=== PATIENT | female | born 1950 | race African-American/Black ===

== ENCOUNTER 2020-06-24 03:06 | Inpatient (IN) | payer OTHER ==
--- OUTSIDE RECORDS SUMMARY | 2020-06-24 03:09 | XMS REPORT | Clinical Summary ---
:1950 Author Organization [facility] Dist[facility] ict Address [facility] [place] [address] Care Team Providers Name Role Phone Unavailable Primary Care Provider Unavailable Allergies Active Allergy Reactions Severity Noted Date Comments Penicillins 01/02/2013 Medications Medication Sig Dispensed Refills Start Date End Date Status metoprolol tartrate Take 1 tablet by 14 tablet 0 03/08/2018 Active (LOPRESSOR) 25 mg mouth 2 times tabletIndications: daily. Other chest pain naproxen (NAPROSYN) 375 Take 1 tablet by 14 tablet 0 8 Active mg tabletIndications: mouth 2 times Chronic bilateral low daily as needed back pain, with (as needed for sciatica presence pain). unspecified Active Problems Problem Noted Date Low back pain 03/08/2018 Other chest pain 01/16/2018 Social History Tobacco Use Types Packs/Day Years Used Date Never Assessed Sex Assigned at Date Recorded Not on file Job Start Date Occupation Industry Not on file Not on file Not on file Travel History Travel Start Travel End No recent travel history available. Last Filed Vital Signs Not on file Plan of Treatment Health Maintenance Due Date Last Done Comments Breast Cancer Scrn (Yearly) 1990 Colorectal Cancer Scrn Annual (FIT/FOBT) Age 50 to 75 2000 IMM Pneumococcal Age 65 and Up 2015 IMM Influenza Seasonal May to October (>/= 19 yrs) 05/29/2020 Results Not on fileafter 06/24/2019 Insurance Payer Benefit Plan / Subscriber ID Effective Dates Phone Addre ss Type Group [employer] MEDICA[place] xxxxxxxxx 2018-Presen [id number] [place] [address] [place] DUAL xxxxxxxxxxxx 2018-Prese [phone] [facility] O MEDICARE OPTION MMP nt [id number] OPTIONS [address] [address] [place] [address]
--- OUTSIDE RECORDS SUMMARY | 2020-06-24 03:23 | XMS REPORT | Continuity of Care Document ---
:1950 Author Organization [facility] Information [place] Care Team Providers Name Role Phone [facility] Information Exchange Unavailable Un available Problems Problem Status Onset Classification Date Comments Sourc e Date Reported UPPER ABD PAIN Active 01/20/20 [facility] [place] Chest pain, 01/17/20 01/19/2017 Nakia haskins unspecified [address] [place] [address], [place] CHEST PAIN Active 01/17/20 [place] [address] Maciej,[facility] Urinary tract 11/29/19 12/01/2016 [place] infection, site 17 not specified Dorsalgia, 11/29/19 12/01/2016 Diane and unspecified 17 PAIN Active 11/29/19 [place] [address] Maciej Bitten or stung by 11/07/19 11/09/2016 [facility] nonvenomous insect 17 and other nonvenomous arthropods, initial encounter FACIAL SWELLING Active 11/07/19 Eleazar rial [place] SYNCOPE Active 10/10/[address] SICK Active 10/10/[address] Discharge 04/14/20 04/17/2016 [facility] Diagnosis: 16 Medical Syncope, near Center CHEST PAIN, Active 03/11/20 [facility] HYPOTENSION 16 [place] SOB Active 03/11/20 [place] [address] [facility] 03/05/20 03/08/2016 [place] Diagnosis: 16 Trichomonas vaginitis Discharge 03/05/20 03/08/2016 [place] Diagnosis: Lumbago 16 Discharge 02/29/20 03/03/2016 [place] Diagnosis: 16 Bronchitis BACK PAIN Active 09/14/19 [facility] 16 [place],[facility] COPD, CHEST PAIN Active 09/03/19 [facility] [place] HEADACHE Active 07/15/20 [facility] [place] SOB/ WEAKNESS Active 07/04/[address] LOWER BACK AND LEG Active 07/04/20 [place] PAIN [address] [place] [address] SHORTNESS OF Active 06/03/20 BREATH 15 [place] Discharge 05/18/20 05/21/2015 [facility] Diagnosis: 15 Medical Abdominal pain, Cent er acute, epigastric NAUSEA Active 05/18/20 [facility] 15 Medical Center Discharge 05/09/20 05/12/2015 [facility] Diagnosis: Chest 15 Med ical pain Center,[facility] Discharge 05/02/20 05/05/2015 [facility] Diagnosis: Vertigo 15 M edical Center Discharge 05/02/20 05/05/2015 [facility] Diagnosis: Syncope 15 M edical and collapse Center FALL Active 05/02/20 [place] [address] Medical Center Discharge 04/11/20 04/14/2015 Diagnosis: Knee 15 [place] pain, right Discharge 04/11/20 04/14/2015 Diagnosis: Lumbar [address] [facility] Discharge 04/11/20 04/14/2015 Diagnosis: 15 [place] Anterolisthesis Discharge 04/11/20 04/14/2015 Diagnosis: 15 [facility] Accidental fall Discharge 03/30/20 04/02/2015 Diagnosis: Chronic 15 [place] pain in right shoulder NECK AND SHOULDER Active 03/30/20 PAIN 15 [facility] SOB/CHEST PAIN Active 03/21/[address] HYPOTENSION, CHEST Active 03/21/20 H PAIN 15 [facility] Discharge 03/11/20 03/14/2015 Diagnosis: Chest 15 [place] wall muscle strain LOWER BACK PAIN Active 03/11/20 15 [facility] Discharge 03/05/20 03/08/2015 [facility] Diagnosis: Dyspnea 15 M edical Center UPPER BACK PAIN Active 02/25/20 15 [facility] ACUTE CHEST PAIN Active 02/25/20 15 [facility] UNSTABLE ANGINA; Active 02/17/20 HYPOTENSION [place] CHEST/LEG PAIN Active 12/23/[address] OTHER Active 12/17/19 [place] [address] Medical Center ACS Active 12/17/19 [place] [address] Medical Center Asthma (disorder) Active Problem 01/22/2017 [facility], [facility] [place], [facility] [facility] Cardiac chest pain Active Problem 01/22/2017 [facility] (finding) [facility], [facility] [place], [facility] 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 [place] (disorder) Medical Center,[facility],M H Mar[place]ie, M Tabby Kraig t Myocardial Active Problem 01/22/2017 [facility] infarction Medical (disorder) Center, [place],M H [place]ie, M Tabby Kraig t Smoking cessation Active Problem 01/22/2017 [facility] advice Medical (regime/therapy) Jose ter,[facility],M H [place], M Tabby Edmondsya t Stented coronary Resolved Problem 01/22/2017 [facility] artery (finding) Med ical Center,[facility],M H [place] Substance abuse Active Problem 01/22/2017 [facility] (disorder) [facility] Tissue perfusion Active Problem 01/22/2017 [facility] measure [facility] (observable Center,M H entity) [place],M H [place]ie, M Tabby Kraig jb Heart disease Active Problem 12/28/2013 [place] ([place]order[place] [facility] CHEST PAIN NOS [place] [facility] INTERMED CORONARY Active [facility] ANGINA DECUBITUS Active [facility] HYPOTENSION NOS Active [facility] SYNCOPE AND Active [facility] COLLAPSE [facility] Medications Medication Details Route Status Patient Ordering Order Source Instructions Provider Date Famotidine 20 mg, Route: Inactive 01/19[facility] IVP, ONCE, 2016 [facility] Dosing Weight 45.455, kg, Priority: STAT, Start date: 01/19/17 13:00:00 CDT, Stop date: 01/19/17 13:00:00 CDT GI cocktail 30 mL, Route: Inactive [facility] PO, Dosing 2016 [facility] Weight 45.455, kg, ONCE, STAT, Start date: 01/19/17 13:00:00 CDT, Stop date: 01/19/17 13:00:00 CDT Ondansetron 4 mg, Route: Inactive 01/19[facility] IVP, ONCE, 2016 [facility] Dosing Weight 45.455, kg, Priority: STAT, Start date: 01/19/17 13:00:00 CDT, Stop date: 01/19/17 13:00:00 CDT Saline Flush 0.9% Notes: (Same Inactive 01/19[facility] as: BD 2016 [facility] Posiflush) Sodium Chloride 1,000 mL, Inactive 0.154 MEQ/ML 2,000 ml/hr, 2016 [facility] ast Injectable Infuse Over: Solution 30 minutes, Route: IV, ONCE, Priority: STAT, Dosing Weight 45.455 kg, Start date: 01/19/17 13:00:00 CDT, Duration: 1 doses or times, Stop date: 01/19/17 13:00:00 CDT clopidogrel Notes: (Same [place] Longer [place] As: Plavix) Active 2017 [facility] atorvastatin Notes: Same as Inactive [facility] Lipitor 2017 [facility] aspirin 81 mg 81 mg = 1 tab, Active [place] tablet, enteric PO, Daily, # 2017 Med ical coated 90 tab, 3 Center Refill(s), other metoprolol Notes: (Same [place] tartrate as: Lopressor) 2017 Medical 12.5 mg=1/2 X Center 25 mg TAB Meclizine Notes: (Same Inactive [facility] as: Antivert) 2017 [facility] nitrofurantoin 100 mg, PO, Inactive [place] BID, # 14 cap, 2017 Medical 0 Refill(s) Center meclizine 25 mg 25 mg = 1 tab, Active [facility] oral tablet PO, TID, PRN 2017 Medical for dizziness, Center # 60 tab, 0 Refill(s) Morphine Notes: (Same Inactive [facility] as:MORPhine 2017 Medical Sulfate) Center Ondansetron Notes: (Same Inactive [place] as as: Zofran) 2017 Medical MEDICATION Center WASTE Product Size: 4 mg Product Wasted: _0__ mg Aspirin Notes: Take Inactive [facility] with food. 2017 [facility] Saline Flush 0.9% Notes: Same Inactive [facility] as: BD 2017 Medical Posiflush Center Sterile 200 ACTUAT 2 puff, Active Albuterol 0.09 INHALATION, 2017 Diane and MG/ACTUAT Dry Q4H, PRN as Powder Inhaler needed for shortness of breath or wheezing, # 1 box, 0 Refill(s) tramadol 50 mg = 1 tab, Active hydrochloride 50 PO, Q6H, PRN 2017 [place] MG Oral Tablet Pain, X 3 day, # 12 tab, 0 Refill(s) Nitrofurantoin 100 100 mg = 1 Active MG Oral Capsule cap, PO, BID, 2017 [place] [Macrobid] X 7 day, # 14 cap, 0 Refill(s) Tramadol Notes: Not to Inactive exceed 2017 [place] 400mg/day. (Same As: Ultram) Albuterol 0.833 Notes: (Same Inactive MG/ML / as: Duoneb) 2017 [place] Ipratropium Jamieson 0.167 MG/ML Inhalant Solution [DuoNeb] Saline Flush 0.9% Notes: Inactive preservative 2017 [place] free. Mupirocin 0.02 1 appl, TOP, Active MG/MG Topical TID, PRN as 2017 [place] Ointment needed, Apply [Bactroban] to affected area(s), X 14 day, # 60 gm, 0 Refill(s) Saline Flush 0.9% Notes: (Same Inactive as: BD 2017 [place] Posiflush) atorvastatin Notes: Same as Inactive [facility] Lipitor [address] [place] [address] Center remove patch Notes: Remove Inactive [place] patch 12 hours 2017 Medical after Center application each day. metoprolol Notes: (Same [place] tartrate as: Lopressor) 2017 Medical 12.5 mg=1/2 X Center 50 mg TAB heparin sodium, Notes: porcine Inactive [place] porcine 2500 heparin 2017 [facility] UNT/ML Injectable Center Solution Protonix Notes: Tablet Inactive [place] should not be 2017 [facility] chewed or Center crushed. (Same as: Protonix) Symbicort 160/4.5 Notes: (Same Inactive [place] inhalation aerosol as: Symbicort) 2017 Medical with adapter WASTE: Center Aerosol - Return to Pharmacy Aspirin 325 MG Notes: Take Inactive [place] Oral Tablet with food. 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, Duration: 30 day, Stop date: 11/09/16 17:00:00 CDT potassium chloride Notes: (Same Inactive [facility] as: K-Dur 20) 2017 Medical "Do Not Crush" Center With food and full glass of water Nitroglycerin 0.4 Notes: (Same No Longer [facility] MG Sublingual as:Nitroquick, Active 2017 Med ical Tablet Nitrostat) "Do Center Not Crush" Sublingual tablet Lidocaine Notes: (Same [place] Longer [place] Hydrochloride 0.05 as: Lidoderm) Active 2017 Medical MG/MG Transdermal "Remove old Ce nter Patch [Lidoderm] patch before application of new patch" Acetaminophen Notes: Do not No Longer [place] exceed 4 Active 2017 Medical gm/day. (Same Center as: Tylenol) Docusate Notes: (Same No Longer [facility] as: Colace) Active 2017 Medical (Do Not Crush) Center Morphine Notes: (Same No Longer [facility] as:MORPhine Active 2016 Medical Sulfate) Center Acetaminophen 325 Notes: (Same No Longer [facility] MG / Hydrocodone as: [place] Active 2016 Medic al Bitartrate 5 MG 325/5) Do not C enter Oral Tablet exceed 4gm/day of acetaminophen. Ondansetron Notes: (Same [place] Longer [place] as: Zofran) Active 2017 Medical MEDICATION Center WASTE Product Size: 4 mg Product Wasted: 0 mg Dilaudid Notes: Same Inactive [facility] as: Dilaudid 2017 Medical [place] potassium chloride Notes: (Same Inactive [facility] as: K-Dur 20) 2017 Medical "Do Not Crush" Center With food and full glass of water Aspirin Notes: Take Inactive [facility] with food. 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 atorvastatin Notes: (Same Inactive as: Lipitor) 2015 [place] 200 ACTUAT Notes: Same Inactive Albuterol 0.09 as: Ventolin 2015 [place] MG/ACTUAT Metered HFA WASTE: Dose Inhaler Aerosol - [ProAir HFA] Return to Pharmacy Protonix Notes: Tablet Inactive should not be 2015 [place] chewed or crushed. (Same as: Protonix) Symbicort 160/4.5 Notes: (Same Inactive inhalation aerosol as: Symbicort) 2015 [place] with adapter WASTE: Aerosol - Return to Pharmacy Aspirin 81 MG Notes: Take Inactive Chewable Tablet with food. 2016 [place] and Omeprazole 20 mg, Route: Inactive PO, Drug form: 2015 [place] ECTAB, BID, Dosing Weight 50, kg, Start date: 03/12/16 9:00:00 CDT, Duration: 30 day, Stop date: 04/10/16 17:00:00 CDT metoprolol Notes: (Same Inactive tartrate as: Lopressor) 2015 [place] clopidogrel Notes: (Same Inactive As: Plavix) 2015 [place] Aspirin 325 MG Notes: Take Inactive Oral Tablet with food. 2015 [place] tramadol Notes: Not to Inactive hydrochloride 50 exceed 2015 [place] MG Oral Tablet 400mg/day. (Same As: Ultram) Naprosyn Notes: (Same Inactive as: Naprosyn) 2015 [place] Take with food. Lidocaine Notes: (Same Inactive Hydrochloride 0.05 as: Lidoderm) 2015 [place] MG/MG Transdermal Patch [Lidoderm] Aspirin Notes: Take Inactive with food. 2015 [place] Nitroglycerin Notes: (Same No Longer as:Nitroquick, Active 2015 [place] Nitrostat) "Do Not Crush" Sublingual tablet Saline Flush 0.9% Notes: (Same No Longer as: BD Active 2015 [place] Posiflush) Saline Flush 0.9% Notes: (Same No Longer as: BD Active 2015 [place] Posiflush) Sodium Chloride 1,000 mL, Inactive 0.154 MEQ/ML 1,000 ml/hr, 2015 [place] Injectable Infuse Over: 1 Solution Hour, Route: IV, ONCE, Priority: STAT, Dosing Weight 50 kg, Start date: 03/11/16 15:57:00 CDT, Duration: 1 doses or times, Stop date: 03/11/16 15:57:00 CDT Sodium Chloride 1,000 mL, Inactive 0.154 MEQ/ML 1,000 ml/hr, 2015 [place] Injectable Infuse Over: 1 Solution Hour, Route: IV, ONCE, Priority: STAT, Dosing Weight 50 kg, Start date: 03/11/16 15:56:00 CDT, Duration: 1 doses or times, Stop date: 03/11/16 15:56:00 CDT Saline Flush 0.9% Notes: (Same Inactive as: BD 2015 [place] Posiflush) Nitroglycerin Notes: (Same Inactive as:Nitroquick, 2015 [place] Nitrostat) "Do Not Crush" Sublingual tablet tramadol 50 mg = 1 tab, Active hydrochloride 50 PO, Q6H, PRN 2015 [place] MG Oral Tablet Pain, X 10 day, # 10 tab, 0 Refill(s) Lidocaine 1 patch, TOP, Active Hydrochloride 0.05 Daily, PRN 2015 [place] MG/MG Transdermal Pain Score Patch [Lidoderm] 6-10, # 30 patch, 0 Refill(s) Naproxen 250 MG 250 mg = 1 Active Oral Tablet tab, PO, BID, 2015 [place] [Naprosyn] PRN Pain Score 6-10, # 60 tab, 0 Refill(s) Zofran Notes: (Same Inactive as: Zofran 2015 [place] ODT) Acetaminophen 325 Notes: (Same Inactive MG / Hydrocodone as: [place] 2016 [place] and Bitartrate 5 MG 325/5) Do not Oral Tablet [[place] exceed 4gm/day 5/325] of acetaminophen. Flagyl Notes: (Same Inactive as: Flagyl) 2015 [place] Take with food/ avoid alcohol predniSONE 20 mg 40 mg = 2 tab, Active oral tablet PO, Daily, X 3 2016 [place] and day, # 6 tab, 0 Refill(s) 200 ACTUAT 2 puff, Active Albuterol 0.09 INHALATION, 2016 [place] and MG/ACTUAT Metered Q4H, PRN for Dose Inhaler wheezing, # 9 [ProAir HFA] gm, 0 Refill(s) Potassium Chloride Notes: (Same Inactive 20 MEQ Extended as: K-Dur 20) 2015 [place] Release Tablet "Do Not Crush" With food and full glass of water Albuterol 0.833 Notes: (Same Inactive MG/ML / as: Duoneb) 2015 [place] Ipratropium Jamieson 0.167 MG/ML Inhalant Solution [DuoNeb] Symbicort 160/4.5 2 puff, Active inhalation aerosol INHALATION, 2015 [place] with adapter BID, # 1 ea, 1 Refill(s) predniSONE 10 mg See Special Active oral tablet Instructions, 2015 [facility] PO, Daily, 6 day regimen: Day 1 - 30 mg (3 tabs) Day 2 - 25 mg (2 1/2 tabs) Day 3 - 20 mg (2 tabs) Day 4 - 15 mg (1 1/2 tabs) Day 5 - 10 mg (1 tab) Day 6 - 5 mg (1/2 tab), X 6 day, # 12 tab, 0 Refill(s) Aspirin 325 MG 325 mg = 1 Active Oral Tablet tab, PO, 2015 [facility] Daily, 0 Refill(s) atorvastatin Notes: (Same No Longer as: Lipitor) Active 2015 [facility] Solu-Medrol Notes: (Same Inactive as:Solu-MEDROL 2015 [facility] , A-Methapred) 24 HR Metoprolol Notes: (Same No Longer Tartrate 25 MG as: Toprol XL) Active 2015 [place] Extended Release Do Not Crush Tablet [Toprol] clopidogrel Notes: (Same No Longer As: Plavix) Active 2015 [facility] Protonix Notes: Tablet No Longer should not be Active 2015 [facility] chewed or crushed. (Same as: Protonix) Aspirin 325 MG Notes: Take No Longer Oral Tablet with food. Active 2015 [facility] Omeprazole 20 mg, Route: Inactive PO, Drug form: 2015 [facility] ECTAB, BID, Dosing Weight 50.92, kg, Start date: 09/04/15 9:00:00, Duration: 30 day, Stop date: 10/03/15 17:00:00 Acetaminophen 300 Notes: Do not No Longer MG / Codeine exceed 4gm/day Active 2015 [place] Phosphate 30 MG of Oral Tablet acetaminophen. [Tylenol with (Same as: Codeine #3] Tylenol with Codeine # 3) NS 1,000 mL 1,000 mL, No Longer Rate: 75 Active 2015 [facility] ml/hr, Infuse over: 13.3 hr, Route: IV, Dosing Weight 50.92 kg, Total Volume: 1,000, Start date: 09/04/15 8:03:00, Duration: 30 day, Stop date: 10/04/15 8:02:00 Albuterol 0.833 Notes: (Same No Longer H MG/ML / as: Duoneb) Active 2015 [facility] Ipratropium Jamieson 0.167 MG/ML Inhalant Solution methylPREDNISolone Notes: (Same No Longer SODium SUCCinate as:Solu-MEDROL Active 2015 [facility] , A-Methapred) methylPREDNISolone Notes: (Same Inactive [place] SUCCinate as:Solu-MEDROL 2015 [facility] , A-Methapred) Albuterol 0.833 Notes: (Same Inactive MG/ML / as: Duoneb) 2015 [facility] Ipratropium [place]ies[place] 0.167 MG/ML Inhalant Solution Saline Flush 0.9% Notes: (Same No Longer as: BD Active 2015 [facility] Posiflush) atorvastatin Notes: (Same Inactive as: Lipitor) 2014 [facility] metoprolol 12.5 mg = 0.5 Active tartrate 25 mg tab, PO, BID, 2014 [place] oral tablet # 60 tab, 0 Refill(s) clopidogrel 75 mg 75 mg = 1 tab, Active oral tablet PO, Daily, # [address] [facility] [address] 30 tab, 1 Refill(s) atorvastatin 40 mg 80 mg = 2 tab, Active oral tablet PO, Bedtime, # 2015 [facility] 60 tab, 1 Refill(s) 200 ACTUAT 90 microgram = Active Albuterol 0.09 1 puff, 2014 [facility] MG/ACTUAT Metered INHALATION, Dose Inhaler Q4H, PRN for wheezing, # 1 ea, 0 Refill(s) omeprazole 20 mg 20 mg = 1 tab, Active oral enteric PO, BID, # 60 2014 [facility] coated tablet tab, 1 Refill(s) metoprolol Notes: (Same Inactive tartrate as: Lopressor) 2014 [facility] t clopidogrel Notes: (Same Inactive As: Plavix) 2014 [facility] Protonix Notes: Tablet Inactive should not be 2014 [facility] chewed or crushed. (Same as: Protonix) Albuterol 0.833 Notes: (Same No Longer H MG/ML / as: Duoneb) Active 2014 [facility] Ipratropium Jamies[place] 0.167 MG/ML Inhalant Solution Sodium Chloride 250 mL, Route: No Longer 0.9% IV IVPB, Start Active 2014 [facility] date: 07/15/15 21:26:00, Duration: 30 day, Stop date: 08/14/15 21:25:00, PRN Line Flush BD Normal Saline Notes: (Same No Longer Flush as: BD Active 2014 [facility] Posiflush) Nitroglycerin Notes: (Same No Longer as:Nitroquick, Active 2014 [facility] Nitrostat) "Do Not Crush" Sublingual tablet Ibuprofen Notes: (Same No Longer as: Motrin) Active 2014 [facility] "Do Not Crush" Give with food. Baclofen Notes: (Same No Longer As: Lioresal) Active 2014 [facility] 200 ACTUAT Notes: No Longer Albuterol 0.09 Albuterol 90 [facility] Metered microgram/inh Dose Inhaler 8gm HFA Same as: Ventolin Proventil Sodium Chloride 1,000 mL, No Longer 0.0769 MEQ/ML Rate: 125 Active 2014 [place] Injectable ml/hr, Infuse Solution over: 8 hr, Route: IV, Dosing Weight 50 kg, Total Volume: 1,000, Start date: 07/15/15 20:39:00, Duration: 30 day, Stop date: 08/14/15 20:38:00 Saline Flush 0.9% Notes: (Same Inactive as: BD 2014 [facility] Posiflush) Aspirin 324 mg, Route: Inactive PO, ONCE, 2014 [facility] Dosing Weight 50, kg, Priority: STAT, Start date: 07/15/15 14:15:00, Stop date: 07/15/15 14:15:00 Saline Flush 0.9% Notes: (Same Inactive as: BD 2014 [facility] Posiflush) Sodium Chloride 500 mL, 500 Inactive [place] 0.154 MEQ/ML ml/hr, Infuse 2014 Medic al Injectable Over: 1 Hour, Center Solution Route: IV, ONCE, Priority: STAT, Dosing Weight 50 kg, Start date: 05/18/15 16:02:00, Duration: 1 doses or times, Stop date: 05/18/15 16:02:00 GI cocktail 30 mL, Route: Inactive [place] PO, Dosing 2014 Medical Weight 50, kg, Center ONCE, STAT, Start date: 05/18/15 13:59:00, Stop date: 05/18/15 13:59:00 Morphine 2 mg, Route: Inactive [place] IVP, ONCE, 2014 Medical Dosing Weight Center 50, kg, Priority: STAT, Start date: 05/09/15 13:21:00, Stop date: 05/09/15 13:21:00 Ondansetron 4 mg, Route: Inactive [place] as IVP, ONCE, 2014 Medical Dosing Weight Center 50, kg, Priority: STAT, Start date: 05/09/15 13:21:00, Stop date: 05/09/15 13:21:00 Saline Flush 0.9% Notes: (Same Inactive [place] as: BD 2015 Medical Posiflush) Center meclizine 25 mg 25 mg = 1 tab, Active H [place] oral tablet PO, TID, PRN 2015 [facility] for dizziness, Center X 20 day, # 60 tab, 0 Refill(s) Acetaminophen Notes: (Same Inactive [place] as: Tylenol) 2015 [facility] Antivert Notes: (Same Inactive [facility] as: Antivert) [address] [place] [address] baclofen 10 mg 10 mg = 1 tab, Active oral tablet PO, TID, PRN [address] [facility] [address] Spasms, # 21 tab, 0 Refill(s) Acetaminophen 300 1 tab, PO, Active MG / Codeine Q6H, PRN pain, 2015 [place] Phosphate 60 MG X 5 day, # 20 Oral Tablet tab, 0 [Tylenol with Refill(s) Codeine #4] Acetaminophen 325 Notes: Same as Inactive MG / Hydrocodone [place] [address] [facility] [address] Bitartrate 7.5 MG 325-7.5mg Do Oral Tablet [[place] not exceed 7.5/325] 4gm/day of acetaminophen. ibuprofen 800 mg Special Active oral tablet Instructions: 2014 [facility] est Take with food Ibuprofen 400 MG Notes: (Same Inactive H Oral Tablet as: Motrin) 2014 [facility] "Do Not Crush" Give with food. cyclobenzaprine Notes: (Same Inactive As: Flexeril) 2014 [facility] Readi-Cat 2 Notes: Same as No Longer Readi-Cat 2 Active 2014 [facility] lactulose Notes: (Same No Longer as:Chronulac) Active 2014 [facility] atorvastatin Notes: (Same No Longer As: Lipitor) Active 2014 [facility] Motrin Notes: (Same No Longer as: Motrin) Active 2014 [facility] "Do Not Crush" Take with food. Omeprazole 20 mg, Route: Inactive PO, Drug form: 2014 [facility] ECTAB, BID, Dosing Weight 53, kg, Start date: 03/22/15 17:00:00, Duration: 30 day, Stop date: 04/21/15 9:00:00 Protonix Notes: Tablet No Longer should not be Active 2014 chewed or crushed. (Same as: Protonix) metoprolol Notes: (Same No Longer extended release as: Toprol XL) Active 2014 Do Not Crush clopidogrel Notes: (Same No Longer As: Plavix) Active 2014 metoprolol 12.5 mg = 0.5 Active tartrate 25 mg tab, PO, BID, [facility] tab, 0 Refill(s) clopidogrel 75 mg 75 mg = 1 tab, Active oral tablet PO, Daily, # [address] [facility] [address] 30 tab, 0 Refill(s) omeprazole 20 mg 20 mg = 1 tab, Active oral enteric PO, BID, # 60 2014 [facility] coated tablet tab, 0 Refill(s) atorvastatin 40 mg 80 mg = 2 tab, Active oral tablet PO, Bedtime, # 2014 [facility] 90 tab, 0 Refill(s) 200 ACTUAT 1 puff, Active Albuterol 0.09 INHALATION, 2014 [facility] MG/ACTUAT Metered Q4H, PRN for Dose Inhaler wheezing, # 9 gm, 0 Refill(s) Ondansetron Notes: (Same No Longer as: Zofran) Active 2014 MEDICATION WASTE Product Size: 4 mg Product Wasted: ___ mg Docusate Notes: (Same No Longer as: Colace) Active 2014 (Do Not Crush) Acetaminophen Notes: Do not No Longer exceed 4 Active 2014 [facility] gm/day. (Same as: Tylenol) Budesonide 0.25 Notes: (Same No Longer H MG/ML Inhalant As: Pulmicort) Active 2014 Solution [Pulmicort] Albuterol 0.833 Notes: (Same No Longer H MG/ML / as: Duoneb) Active 2014 Ipratropium [place] 0.167 MG/ML Inhalant Solution [DuoNeb] Potassium Chloride Notes: (Same Inactive 1.33 MEQ/ML Oral as: Potassium 2015 [place] Solution Chloride) Sodium Chloride 1,000 mL, Inactive 0.154 MEQ/ML 1,000 ml/hr, 2014 [facility] Injectable Infuse Over: 1 Solution hr, Route: IV, ONCE, Priority: STAT, Dosing Weight 50 kg, Start date: 03/21/15 17:23:00, Duration: 1 doses or times, Stop date: 03/21/15 17:23:00 Sodium Chloride 1,000 mL, Inactive 0.154 MEQ/ML 1,000 ml/hr, 2014 [facility] Injectable Infuse Over: 1 Solution hr, Route: IV, 1,000, Drug form: INJ, ONCE, Priority: STAT, Dosing Weight 50 kg, Start date: 03/21/15 16:12:00, Duration: 1 doses or times, Stop date: 03/21/15 16:12:00 Ondansetron Notes: (Same Inactive as: Zofran) 2014 [facility] MEDICATION WASTE Product Size: 4 mg Product Wasted: ___ mg Morphine Notes: (Same Inactive as:MORPhine 2014 [facility] Sulfate) Aspirin Notes: Take Inactive with food. 2014 Saline Flush 0.9% Notes: (Same No Longer as: BD Active 2014 [facility] Posiflush) tramadol 50 mg = 1 tab, No Longer hydrochloride 50 PO, Q4H, PRN Active 2014 [place] [facility] [place] Oral Tablet pain, # 20 [Ultram] tab, 0 Refill(s) Aspirin Notes: Take Inactive with food. 2014 [facility] Morphine Notes: (Same Inactive as:MORPhine 2014 [facility] Sulfate) Ondansetron Notes: (Same Inactive as: Zofran) 2014 [facility] MEDICATION WASTE Product Size: 4 mg Product Wasted: ___ mg Saline Flush 0.9% Notes: (Same Inactive as: BD 2014 [facility] Posiflush) Famotidine 20 MG 20 mg, 1 tab, Inactive [place] Oral Tablet Route: PO, 2015 Medical [Pepcid] BID, Dosing Center Weight 50, kg, Start date: 03/05/15 9:00:00, Duration: 30 day, Stop date: 04/03/15 17:00:00 MDI Inhaler Spacer Special Active [place] Instructions: 2015 Medical Use as Center directed 200 ACTUAT 1 puff, Active [facility] Albuterol 0.09 INHALATION, 2014 Medic al MG/ACTUAT Metered Q4H, PRN for C enter Dose Inhaler wheezing, # 9 gm, 0 Refill(s) Iohexol Notes: (same Inactive [facility] as:Omnipaque [facility] Medical 350). [place] Famotidine 20 MG 20 mg, 1 tab, Inactive [facility] Oral Tablet Route: PO, 2015 [facility] [Pepcid] ONCE, Dosing [place] Weight 50, kg, Start date: 03/05/15 2:18:00, Stop date: 03/05/15 2:18:00 GI cocktail 30 mL, Route: Inactive [place] PO, Dosing 2014 [facility] Weight 50, kg, Center ONCE, STAT, Start date: 03/05/15 2:16:00, Stop date: 03/05/15 2:16:00 Aspirin Notes: Take Inactive [place] with food. 2014 [facility] remove patch Notes: Remove No Longer old patch Active 2014 [facility] before application of new patch. Plavix Notes: (Same Inactive As: Plavix) 2014 [facility] Omeprazole 20 mg, Route: No Longer PO, Drug form: Active 2014 [facility] ECTAB, BID, Dosing Weight 50, kg, Start date: 02/25/15 9:00:00, Duration: 30 day, Stop date: 03/26/15 17:00:00 Nicoderm C-Q Notes: (Same Inactive as: Habitrol) 2014 [facility] "Remove old patch before application of new patch" Aspirin Notes: Take No Longer with food. Active 2014 [facility] 24 HR Nicotine = 1 patch, Active 0.875 MG/HR TOP, Daily, X 2014 [facility] est Transdermal Patch 14 day, # 14 [Nicoderm C-Q] patch, 0 Refill(s) atorvastatin 20 mg 40 mg = 2 tab, Active oral tablet PO, Bedtime, # 2014 [place] 60 tab, 0 Refill(s) omeprazole 20 mg 20 mg = 1 tab, Active oral enteric PO, BID, # 30 2014 [facility] coated tablet tab, 0 Refill(s) metoprolol 12.5 mg = 0.5 Active tartrate 25 mg tab, PO, BID, 2014 [place] oral tablet # 30 tab, 0 Refill(s) cyclobenzaprine 10 10 mg = 1 tab, Active mg oral tablet PO, TID, PRN 2014 [place] for spasms, # 30 tab, 0 Refill(s) clopidogrel 75 MG 75 mg = 1 tab, Active Oral Tablet PO, Daily, # 2014 st [Plavix] 30 tab, 0 Refill(s) Protonix Notes: Tablet No Longer should not be Active 2014 chewed or crushed. (Same as: Protonix) Protonix Notes: For IV No Longer push Active 2014 reconstitute with 10 ml 0.9% sodium chloride and push over 2 minutes. (Same as: Protonix) atorvastatin Notes: (Same No Longer As: Lipitor) Active 2014 Sodium Chloride 250 mL, Route: No Longer 0.9% IV IVPB, Start Active 2014 date: 02/24/15 21:00:00, Duration: 30 day, Stop date: 03/26/15 20:59:00, PRN Line Flush BD Normal Saline Notes: (Same No Longer Flush as: BD Active 2014 [facility] Posiflush) potassium chloride Notes: Infuse Inactive at a rate of 2014 10 mEq/hr. (Same as: KCL) metoprolol Notes: (Same No Longer tartrate as: Lopressor) Active 2014 [facility] cyclobenzaprine Notes: (Same No Longer 02/25/ H As: Flexeril) Active 2014 Morphine Notes: (Same No Longer as:MORPhine Active 2014 [facility] Sulfate) Ondansetron Notes: (Same No Longer as: Zofran) Active 2014 MEDICATION WASTE Product Size: 4 mg Product Wasted: ___ mg Acetaminophen Notes: Do not No Longer exceed 4 Active 2014 [facility] gm/day. (Same as: Tylenol) Aspirin Notes: Take Inactive with food. 2014 potassium chloride 40 mEq, Route: Inactive 02/24 PO, Drug form: 2014 [facility] ERTAB, ONCE, Dosing Weight 50, kg, Priority: STAT, Start date: 02/24/15 14:49:00, Stop date: 02/24/15 14:49:00 Morphine Notes: (Same Inactive as:MORPhine 2014 [facility] Sulfate) remove patch Notes: Remove Inactive old patch 2014 [facility] before application of new patch. Plavix Notes: (Same Inactive As: Plavix) 2014 [facility] atorvastatin Notes: (Same No Longer As: Lipitor) Active 2014 [facility] Pravastatin Notes: (Same Inactive as: Pravachol) 2014 [facility] Protonix Notes: Tablet No Longer should not be Active 2014 [facility] chewed or crushed. (Same as: Protonix) NS 1,000 mL 1,000 mL, No Longer Rate: 100 Active 2014 [facility] ml/hr, Infuse over: 10 hr, Route: IV, Dosing Weight 51.051 kg, Total Volume: 1,000, Start date: 02/17/15 16:51:00, Duration: 30 day, Stop date: 03/19/15 16:50:00 Sodium Chloride IV, 0 ml/hr, Inactive 0.9% IV ONCE, Start 2014 [facility] date: 02/17/15 16:45:00, 500 ml metoprolol 12.5 mg = 0.5 Active tartrate 25 mg tab, PO, BID, 2014 [place] oral tablet 0 Refill(s) naproxen 500 mg 500 mg = 1 Inactive oral tablet tab, PO, BID, 2014 [facility] PRN Pain, # 30 tab, 0 Refill(s) Aspirin Low Dose 0 Refill(s) Inactive 81 mg oral tablet 2014 [facility] est cyclobenzaprine 10 10 mg = 1 tab, Active mg oral tablet PO, TID, PRN 2014 [place] for spasms, # 30 tab, 0 Refill(s) atorvastatin 20 mg 20 mg = 1 tab, Inactive 02/17 oral tablet PO, Bedtime, # 2015 [facility] 30 tab, 0 Refill(s) omeprazole 20 mg 20 mg = 1 tab, Active oral enteric PO, BID, # 30 2014 [facility] coated tablet tab, 0 Refill(s) 24 HR Nicotine = 1 patch, Active 0.875 MG/HR TOP, Daily, X 2015 [facility] est Transdermal Patch 14 day, # 14 [Nicoderm C-Q] patch, 0 Refill(s) atorvastatin 20 mg 40 mg = 2 tab, Active oral tablet PO, Bedtime, # 2015 [facility] 60 tab, 0 Refill(s) Nicotine Notes: (Same No Longer as: Habitrol) Active 2014 [facility] "Remove old patch before application of new patch" Aspirin 81 MG Notes: Do not Inactive Enteric Coated crush or chew. 2015 [facility] Tablet (Same As: Ecotrin) Sodium Chloride 1,000 mL, Inactive 0.154 MEQ/ML Rate: 125 2014 [facility] Injectable ml/hr, Infuse Solution over: 8 hr, Route: IV, Dosing Weight 51.051 kg, Total Volume: 1,000, Start date: 02/17/15 8:38:00, Duration: 30 day, Stop date: 03/19/15 8:37:00 Aspirin 81 MG 81 mg = 1 tab, No Longer 06/22/ M H Enteric Coated PO, Daily, # Active 2014 [place] Tablet 90 tab, 3 Refill(s) clopidogrel 75 MG 75 mg = 1 tab, Active Oral Tablet PO, Daily, # [address] [facility] [address] [Plavix] 30 tab, 0 Refill(s) Enoxaparin Notes: Nurse No Longer to ensure Active 2014 [facility] documentation of patient education per anticoagulatio n policy. (Same as: Lovenox) Jason Krause Notes: (Same No Longer 22/ M H As: Rosannasalon Active 2014 [facility] Nelida) "Do Not Crush" Acetaminophen Notes: Do not No Longer exceed 4 Active 2014 [facility] gm/day. (Same as: Tylenol) Diphenhydramine Notes: (Same No Longer 02/17/ H as: Benadryl) Active 2014 [facility] Dextromethorphan Notes: No Longer Hydrobromide 2 (dextromethorp Active 2014 [place] [facility] MG/ML / hernández-guaifenesi Guaifenesin 20 n 10-100mg/5ml MG/ML Oral 10 ml oral Solution SOLN ud) (Same as: Robitussin DM) Simethicone Notes: (Same No Longer as: Mylicon) Active 2014 [facility] Bisacodyl Notes: (Same No Longer As: Dulcolax, Active 2014 [facility] Bisco-Lax) Ondansetron Notes: (Same No Longer as: Zofran) Active 2014 [facility] MEDICATION WASTE Product Size: 4 mg Product Wasted: ___ mg Nitroglycerin 0.02 Notes: 1 gram No Longer 02/17 MG/MG Topical is Active 2014 [facility] Ointment approximately 1 inch of nitroglycerin ointment (20 mg NTG per gram) (Same as:Nitro-Bid) Nitroglycerin Notes: (Same No Longer as:Nitroquick, Active 2014 [facility] Nitrostat) "Do Not Crush" Sublingual tablet Acetaminophen Notes: Do not No Longer exceed 4 Active 2014 [facility] gm/day. (Same as: Tylenol) Acetaminophen 325 Notes: (Same No Longer MG / Hydrocodone as: [place] Active 2014 [facility] Bitartrate 5 MG 325/5) Do not Oral Tablet exceed 4gm/day of acetaminophen. Morphine Notes: (Same No Longer as:MORPhine Active 2014 [facility] Sulfate) Sodium Chloride 1,000 mL, No Longer 0.154 MEQ/ML Rate: 125 Active 2014 [facility] Injectable ml/hr, Infuse Solution over: 8 hr, Route: IV, Dosing Weight 52.273 kg, Total Volume: 1,000, Start date: 02/16/15 21:06:00, Duration: 24 hr, Stop date: 02/17/15 21:05:00 normal saline 0.9% 500 mL, Rate: Inactive IV 500 mL 500 ml/hr, 2014 [facility] Infuse over: 1 hr, Route: IV, Dosing Weight 52.273 kg, Total Volume: 500, Start date: 02/16/15 20:25:00, Duration: 1 doses or times, Stop date: 02/16/15 21:24:00 Sodium Chloride 250 mL, Route: No Longer 0.9% IV IVPB, Start Active 2014 [facility] date: 02/16/15 19:52:00, Duration: 30 day, Stop date: 03/18/15 19:51:00, PRN Line Flush BD Normal Saline Notes: (Same No Longer Flush as: BD Active 2014 [facility] Posiflush) Morphine Notes: (Same Inactive as:MORPhine 2014 [facility] Sulfate) Nitroglycerin Notes: (Same Inactive as:Nitroquick, 2014 [facility] Nitrostat) "Do Not Crush" Sublingual tablet Aspirin Notes: (Do Not Inactive Crush) Do not 2014 [facility] crush or chew. Ondansetron Notes: (Same Inactive as: Zofran) 2013 [facility] Morphine Notes: (Same Inactive as:MORPhine 2013 [facility] Sulfate) Aspirin / Calcium Notes: Take Inactive H Carbonate with food. 2013 [facility] Aspirin 81 MG 81 mg = 1 tab, Active [facility] Enteric Coated PO, Daily, # 2014 Medi tony Tablet 90 tab, 0 Center Refill(s) metoprolol 12.5 mg = 0.5 Active [facility] s tartrate 25 mg tab, PO, BID, 2013 Med ical oral tablet # 90 tab, 0 Center Refill(s) clopidogrel 75 mg 75 mg = 1 tab, Active [facility] oral tablet PO, Daily, # 2014 Medical 90 tab, 0 Center Refill(s) atorvastatin 20 mg 20 mg = 1 tab, Active 12/17[facility] oral tablet PO, Bedtime, # 2014 Medic al 90 tab, 0 Center Refill(s) metoprolol Notes: (Same Inactive [place] tartrate as: Lopressor) 2013 Medical 12.5mg=1/4 X Center 50 mg tab. Lovenox Notes: (Same Inactive [facility] as: Lovenox) 2013 [facility] Center clopidogrel Notes: (Same Inactive [place] as As: Plavix) 2013 [facility] Center Aspirin / Calcium Notes: Do not Inactive [place] Carbonate crush or chew. 2013 Medical (Same As: Center Ecotrin) Saline Flush 0.9% Notes: (Same Inactive [place] as: BD 2013 Medical Posiflush) Center Adenosine 41.6178 mg, Inactive [place] Route: IVP, 2014 Medical ONCE, Dosing Center Weight 49.545, kg, Priority: Routine, Start date: 12/16/13 22:42:00, Stop date: 12/16/13 22:42:00 atorvastatin Notes: (Same No Longer [place] As: Lipitor) Active 2013 Medical Center Saline Flush 0.9% Notes: (Same No Longer [place] as: BD Active 2013 Medical Posiflush) Center Nitroglycerin Notes: (Same No Longer [facility] as:Nitroquick, Active 2013 Medical Nitrostat) "Do Center Not Crush" Sublingual tablet atorvastatin 20 mg 20 mg = 1 tab, No Longer 11/28 [place] oral tablet PO, Bedtime, # Active 2013 Medic al 30 tab, 0 Center Refill(s) clopidogrel 75 mg 75 mg = 1 tab, No Longer 12/17 [place] oral tablet PO, Daily, 0 Active 2013 Medical Refill(s) Center Metoprolol 12.5 mg = 0.5 [place] Longer [place] Tartrate 25 mg tab, PO, BID, Active 2013 Med ical oral tablet 0 Refill(s) Center Aspirin Low Dose = 1 tab, PO, No Longer [place] 81 mg oral tablet Daily, 0 Active 2013 Medic al Refill(s) Center Sodium Chloride 1,000 mL, Inactive [place] 0.154 MEQ/ML 1,000 ml/hr, 2014 Medica l Injectable Infuse Over: 1 Center Solution hr, Route: IV, 1,000, Drug form: INJ, ONCE, Priority: STAT, Dosing Weight 48.636 kg, Start date: 12/16/13 18:43:00, Duration: 1 doses or times, Stop date: 12/16/13 18:43:00 Iohexol Special Inactive [facility] Instructions: 2014 Medical Dose = Center 2.2ml/kg, Max dose = 100ml -- "To be infused by Radiology Staff ONLY" Sodium Chloride 1,000 mL, Inactive [place] 0.154 MEQ/ML 1,000 ml/hr, 2013 Medica l Injectable Infuse Over: 1 Center Solution hr, Route: IV, 1,000, Drug form: INJ, ONCE, Priority: STAT, Dosing Weight 48.636 kg, Start date: 12/16/13 14:43:00, Duration: 1 doses or times, Stop date: 12/16/13 14:43:00 Sodium Chloride 1,000 mL, Inactive [place] 0.154 MEQ/ML 1,000 ml/hr, 2013 Medica l Injectable Infuse Over: 1 Center Solution hr, Route: IV, ONCE, Priority: STAT, Dosing Weight 48.636 kg, Start date: 12/16/13 14:36:00, Duration: 1 doses or times, Stop date: 12/16/13 14:36:00 GI cocktail Notes: G.I. Inactive [place] Cocktail = 2013 Medical antacid with Center simethicone 22.5 mL - lidocaine viscous 7.5 mL Aspirin / Calcium Notes: (Do Not Inactive [facility] Carbonate Crush) Do not 2013 Medical crush or chew. [place] Aspirin 81 MG 81 mg, 1 tab, No Longer [place] Chewable Tablet Route: PO, Active 2013 Medic al Drug form: [place] CHEWTAB, Daily, Dosing Weight 63.636, kg, Start date: 11/09/13 9:00:00, Duration: 30 day, Stop date: 12/08/13 9:00:00Take with food. atorvastatin 20 mg, 1 tab, Inactive [place] Route: PO, 2013 Medical Drug form: Center TAB, Bedtime, Dosing Weight 63.636, kg, Start date: 11/08/13 21:00:00, Duration: 30 day, Stop date: 12/07/13 21:00:00(Same As: Lipitor) metoprolol 12.5 mg = 0.5 Active [place] tartrate 25 mg tab, PO, BID, 2013 Med ical oral tablet # 30 tab, 0 Center Refill(s) clopidogrel 75 MG 75 mg = 1 tab, Active [facility] Oral Tablet PO, Daily, # 2014 Medical [Plavix] 30 tab, 0 Center Refill(s) atorvastatin 20 mg 20 mg = 1 tab, Active [facility] oral tablet PO, Bedtime, # 2014 Medic al 30 tab, 0 Center Refill(s) Aspirin 81 MG 81 mg = 1 tab, Active [facility] Chewable Tablet PO, Daily, # 2014 Med ical 60 tab, 0 Center Refill(s) Plavix 75 mg, 1 tab, Inactive [facility] Route: PO, 2013 Medical Drug form: Center TAB, Daily, Dosing Weight 63.636, kg, Start date: 11/08/13 9:00:00, Duration: 30 day, Stop date: 12/07/13 9:00:00(Same As: Plavix) Saline Flush 0.9% 5 ml, [facility] Medical Form: INJ, [place] Dosing Weight 63.636, kg, Q12H, Start date: 11/08/13 9:00:00, Duration: 30 day, Stop date: 12/07/13 21:00:00(Same as: BD Posiflush) Lovenox 40 mg, 0.4 mL, Inactive [facility] Route: SUB-Q, 2013 Medical Drug form: [place] INJ, Q24H, Dosing Weight 63.636, kg, Start date: 11/08/13 9:00:00, Duration: 30 day, Stop date: 12/07/13 9:00:00(Same as: Lovenox) Tylenol 650 mg, 2 tab, Inactive [facility] Route: PO, 2013 Medical Drug form: [place] TAB, Q4H, Dosing Weight 63.636, kg, PRN Pain, Start date: 11/08/13 8:15:00, Duration: 30 day, Stop date: 12/08/13 8:14:00Do not exceed 4 gm/day. (Same as: Tylenol) Saline Flush 0.9% 5 ml, Route: [facility] Medical Form: INJ, Center Dosing Weight 63.636, kg, PRN, PRN Line Flush, Start date: 11/08/13 7:06:00, Duration: 30 day, Stop date: 12/08/13 7:05:00(Same as: BD Posiflush) Nitroglycerin 0.4 mg, 1 tab, Inactive [place] Route: SL, 2013 Medical Drug form: Center TAB, Q5Min, Dosing Weight 63.636, kg, PRN Chest Pain, Start date: 11/08/13 7:06:00, Duration: 30 day, Stop date: 12/08/13 7:01:00(Same as:Nitroquick, Nitrostat) "Do Not Crush" Sublingual tablet Aspirin 81 MG 324 mg, Route: Inactive [facility] Chewable Tablet PO, Drug form: 2013 Jacek benedict CHEWTAB, ONCE, Center Dosing Weight 63.636, kg, Priority: STAT, Start date: 11/08/13 5:15:00, Stop date: 11/08/13 5:15:00 Allergies, Adverse Reactions, Alerts Substance Category Reaction Severity Reaction Status Date Comments S ource type Reported penicillins Assertion Drug Active allergy [place] Immunizations Immunization Date Site Status Last Comments Source Given Updated pneumococcal Left completed Pao Nakia s 23-valent 2 deltoid Medical vaccine Center, Jacek Solo [facility] Results Order Name Results Value Reference Date Interpretation Comments Sandra rce Range URINE AND UA Color Ltyellow 01/19 STOOL /2016 [facility] URINE AND UA <=1.0 0.1 - 1.0 01/19 STOOL Urobilinogen mg/dL [facility] URINE AND UA Ketones Negative Negative 01/19 STOOL mg/dL mg/dL [place] URINE AND UA Bili Negative Negative 01/19 STOOL *NA* /2016 [place] (01/19/17 2:21 PM) URINE AND UA Glucose Negative Negative 01/19 STOOL mg/dL mg/dL [place] URINE AND UA Protein Negative Negative 01/19 STOOL mg/dL mg/dL [place] URINE AND UA Leuk Est Negative Negative 01/19 STOOL (01/19/17 2:21 PM) [place] URINE AND UA Nitrite Negative Negative 01/19 STOOL (01/19/17 2:21 PM) [place] URINE AND UA Blood Negative Negative 01/19 STOOL (01/19/17 2:21 PM) [facility] ast URINE AND UA RBC 1 0 - 2 01/19 STOOL /2016 [facility] URINE AND UA WBC 1 0 - 5 01/19 STOOL /2016 [facility] URINE AND UA Sq Epi Few /LPF Few /LPF 01/19 STOOL [facility] URINE AND UA pH 7.0 5.0 - 8.0 01/19 STOOL [facility] URINE AND UA Spec Grav 1.008 <=1.030 01/19 STOOL /2016 [facility] URINE AND UA Turbidity Clear Clear 01/19 STOOL (01/19/17 2:21 PM) [facility] ast CARDIAC CK MB 3.0 0.5 - 3.6 01/19 ENZYMES /2016 [facility] CARDIAC Troponin-I <0.02 0.00 - 01/19 ENZYMES 0.40 [facility] CHEM PANEL Lipase Lvl 231 73 - 393 01/19 [facility] CHEM PANEL B/C Ratio 9 6 - 25 01/19 [place] CHEM PANEL AGAP 8.4 10.0 - 01/19 MH 20.0 /2017 [facility] CHEM PANEL A/G Ratio 1.0 0.7 - 1.6 01/19 [place] CHEM PANEL Globulin 3.6 2.7 - 4.2 01/19 [place] CHEM PANEL BUN 7 7 - 22 01/19 [place] CHEM PANEL CO2 32 24 - 32 01/19 [place] CHEM PANEL Chloride Lvl 104 95 - 109 01/19 [place] CHEM PANEL Potassium 3.4 3.5 - 5.1 01/19 MH Lvl /2016 [place] CHEM PANEL Sodium Lvl 141 135 - 145 01/19 [place] CHEM PANEL Creatinine 0.79 0.50 - 05 MH Lvl 1.40 [place] CHEM PANEL Albumin Lvl 3.6 3.5 - 5.0 01/19 [place] CHEM PANEL Calcium Lvl 9.1 8.5 - 10.5 01/19 [place] CHEM PANEL ALT 25 0 - 65 01/19 [place] CHEM PANEL Total 7.2 6.4 - 8.4 01/19 Protein [place] CHEM PANEL Bili Total 1.1 0.2 - 1.3 01/19 [place] CHEM PANEL Alk Phos 111 39 - 136 01/19 [facility] CHEM PANEL AST 31 0 - 37 01/19 [facility] CHEM PANEL eGFR 90 01/19 Result Comment: The [facility] eGFR is calculated using the CKD-EPI formula. In most young, healthy individuals the eGFR will be >90 mL/min/1.73m2 . The eGFR declines with age. An eGFR of 60-89 may be normal in some populations, particularly the elderly, for whom the CKD-EPI formula has not been extensively validated. Use of the eGFR is not recommended in the following populations:< br/>
Brittani viduals with unstable creatinine concentration s, including patients and those with serious co-morbid conditions.<b r/>
Patie nts with extremes in muscle mass or diet.

The data above are obtained from the National Kidney Disease Education Program (NKDEP) which additionally recommends that when the eGFR is used in patients with extremes of body mass index for purposes of drug dosing, the eGFR should be multiplied by the estimated BMI. CHEM PANEL Glucose Lvl 73 70 - 99 01/19 [facility] CHEM PANEL Amylase Lvl 75 25 - 115 01/19 [facility] HEMATOLOGY PTT 31.3 22.9 - 01/19 MH 35.8 /2017 [facility] HEMATOLOGY MPV 8.5 7.4 - 10.4 01/19 [facility] HEMATOLOGY Hct 42.0 36.0 - 01/19 MH 48.0 /2016 [facility] HEMATOLOGY RBC 4.92 4.20 - 01/19 MH 5.40 /2017 [facility] HEMATOLOGY Hgb 14.4 12.0 - 01/19 MH 16.0 [facility] HEMATOLOGY RDW 14.2 11.5 - 01/19 MH 14.5 /2016 [facility] HEMATOLOGY Platelet 236 133 - 450 05 /2016 [facility] HEMATOLOGY MCHC 34.2 32.0 - 01/19 MH 36.0 /2017 [facility] HEMATOLOGY MCH 29.2 27.0 - 01/19 MH 31.0 /2016 [facility] HEMATOLOGY MCV 85.5 80.0 - 01/19 MH 98.0 /2016 [facility] HEMATOLOGY WBC 7.7 3.7 - 10.4 01/19 /2016 [facility] HEMATOLOGY PT 13.7 12.0 - 01/19 MH 14.7 /2016 [facility] HEMATOLOGY INR 1.03 0.85 - 01/19 MH 1.17 /2016 [place] HEMATOLOGY Eosinophils 0.3 0.0 - 0.5 05 MH # /2017 [place] HEMATOLOGY Segs 68.3 45.0 - 01/19 MH 75.0 /2017 [facility] HEMATOLOGY Monocytes # 0.6 0.0 - 0.8 01/19 MH /2016 [facility] HEMATOLOGY Segs-Bands # 5.3 1.5 - 8.1 01/19 /2016 [place] HEMATOLOGY Eosinophils 4.5 0.0 - 4.0 01/19 MH /2016 [place] HEMATOLOGY Basophils 0.6 0.0 - 1.0 01/19 MH /2016 [place] HEMATOLOGY Lymphocytes 1.4 1.0 - 5.5 / MH # /2017 [place] HEMATOLOGY Monocytes 7.8 2.0 - 12.0 01/19 /2016 [place] HEMATOLOGY Lymphocytes 18.8 20.0 - 01/19 MH 40.0 /2017 [place] DRUG U Cocaine Positive Negative 01/17 [place] SCREEN Scr *ABN* /2016 [facility] (01/16/17 7:23 PM) Center DRUG U Phencyc Negative Negative 01/17 [place] SCREEN Scr *NA* /2016 [facility] (01/16/17 7:23 PM) Center DRUG U Cannab Scr Negative Negative 01/17 [place] SCREEN *NA* /2016 [facility] (01/16/17 7:23 PM) Center DRUG U Opiate Scr Negative Negative 01/17 [place] SCREEN *NA* /2016 [facility] (01/16/17 7:23 PM) Center DRUG UDS Note See Note 01/17 [place] SCREEN (01/16/17 7:23 PM) /2016 [facility] l Center DRUG U Keyla Scr Negative Negative 01/17 [place] SCREEN *NA* /2016 [facility] (01/16/17 7:23 PM) Center DRUG U Amph Scr Negative Negative 01/17 [place] SCREEN *NA* /2016 [facility] (01/16/17 7:23 PM) Center DRUG U Benzodia Negative Negative 01/17 [place] SCREEN Scr *NA* /2016 [facility] (01/16/17 7:23 PM) Center URINE AND UA Ketones Negative Negative 01/17 [place] STOOL *NA* /2016 Medical (01/16/17 7:23 PM) Center URINE AND UA Bili Negative Negative 01/17 [place] STOOL *NA* /2016 Medical (01/16/17 7:23 PM) Center URINE AND UA Glucose Negative Negative 01/17 MH [place] STOOL (01/16/17 7:23 PM) [facility] URINE AND UA Nitrite Negative Negative 01/17 [facility] (01/16/17 7:23 PM) [facility] URINE AND UA Leuk Est Negative Negative 01/17 [facility] (01/16/17 7:23 PM) [facility] URINE AND UA 1.0 0.1 - 1.0 01/17 [facility] Urobilinogen /2016 [facility] URINE AND UA Blood Negative Negative 01/17 [facility] (01/16/17 7:23 PM) /2016 [facility] URINE AND UA Turbidity Slight Cloudy Clear 01/17 [facility] (01/16/17 7:23 PM) [facility] URINE AND UA Spec Grav 1.007 <=1.030 01/17 [facility] URINE AND UA pH 6.0 5.0 - 8.0 01/17 [facility] URINE AND UA Protein Negative Negative 01/17 [facility] (01/16/17 7:23 PM) [facility] URINE AND UA Color Yellow Yellow 01/17 [facility] *NA* /2016 [facility] (01/16/17 7:23 PM) [place] URINE AND UA RBC 0-2 /HPF 0 - 2 01/17 [facility] URINE AND UA Bacteria Few /HPF None Seen 01/[facility] /H[facility] URINE AND UA WBC 0-2 /HPF None Seen 01/17 [facility] /HPF /2016 [facility] URINE AND UA Sq Epi Few /LPF Few /LPF 01/17 [facility] [address] [place] [address] CARDIAC Troponin-I <0.02 0.00 - 01/16 [facility] ENZYMES 0.40 [facility] CARDIAC CK MB 2.0 0.5 - 3.6 01/16 [facility] ENZYMES [facility] CARDIAC Total CK 208 12 - 191 01/16 [facility] ENZYMES [facility] CARDIAC CK MB Index 1.0 0.0 - 2.5 01/16 [facility] ENZYMES [address] CHEM PANEL eGFR 73 01/16 Result Comment: The Medical eGFR is Center calculated using the CKD-EPI formula. In most young, healthy individuals the eGFR will be >90 mL/min/1.73m2 . The eGFR declines with age. An eGFR of 60-89 may be normal in some populations, particularly the elderly, for whom the CKD-EPI formula has not been extensively validated. Use of the eGFR is not recommended in the following populations:< br/>
Brittani viduals with unstable creatinine concentration s, including patients and those with serious co-morbid conditions.<b r/>
Patie nts with extremes in muscle mass or diet.

The data above are obtained from the National Kidney Disease Education Program (NKDEP) which additionally recommends that when the eGFR is used in patients with extremes of body mass index for purposes of drug dosing, the eGFR should be multiplied by the estimated BMI. CHEM PANEL CO2 29 24 - 32 01/[address] CHEM PANEL Sodium Lvl 142 135 - 145 01/[address] CHEM PANEL Glucose Lvl 105 70 - 99 01/[address] CHEM PANEL BUN 15 7 - 22 01/[address] CHEM PANEL AGAP 11.0 10.0 - 01/16 [facility] 20.0 [facility] CHEM PANEL B/C Ratio 16 6 - 25 01/[address] CHEM PANEL Calcium Lvl 9.4 8.5 - 10.5 01/16 [facility] CHEM PANEL Creatinine 0.94 0.50 - 01/16 [facility] 1.40 [facility] CHEM PANEL Chloride Lvl 106 95 - 109 01/16 [facility] 2016 [facility] CHEM PANEL Potassium 4.0 3.5 - 5.1 01/16 [facility] CHEM PANEL Albumin Lvl 3.6 3.5 - 5.0 01/16 [facility] CHEM PANEL ALT 24 0 - 65 01/[address] CHEM PANEL Bili Total 0.6 0.2 - 1.3 01/[address] CHEM PANEL Alk Phos 107 39 - 136 01/[address] CHEM PANEL AST 29 0 - 37 01/[address] CHEM PANEL A/G Ratio 0.9 0.7 - 1.6 01/[address] CHEM PANEL Globulin 3.9 2.7 - 4.2 01/[address] [facility] CHEM PANEL Total 7.5 6.4 - 8.4 01/16 Protein [facility] HEMATOLOGY Hgb 14.6 12.0 - 01/16 [place] 16.0 [facility] HEMATOLOGY Hct 42.7 36.0 - 01/16 [place] 48.0 [facility] HEMATOLOGY MCHC 34.2 32.0 - 01/16 [place] 36.0 [facility] HEMATOLOGY MCV 85.3 80.0 - 01/16 [place] 98.0 [facility] HEMATOLOGY MCH 29.2 27.0 - 01/16 [place] 31.0 [facility] HEMATOLOGY RDW 14.3 11.5 - 01/16 [place] 14.5 [facility] HEMATOLOGY Platelet 227 133 - 450 01/16 [facility] HEMATOLOGY MPV 8.0 7.4 - 10.4 01/16 [facility] HEMATOLOGY WBC 6.6 3.7 - 10.4 01/16 [facility] HEMATOLOGY RBC 5.00 4.20 - 01/16 [place] 5.40 [facility] HEMATOLOGY Basophils 0.8 0.0 - 1.0 01/16 [facility] HEMATOLOGY Segs-Bands # 4.0 1.5 - 8.1 01/16 [facility] HEMATOLOGY Monocytes # 0.5 0.0 - 0.8 01/16 [place] [facility] HEMATOLOGY Basophils # 0.1 0.0 - 0.2 01/16 s [facility] HEMATOLOGY Lymphocytes 1.8 1.0 - 5.5 01/16 [place] [facility] HEMATOLOGY Eosinophils 0.2 0.0 - 0.5 01/16 [place] [facility] HEMATOLOGY Segs 60.6 45.0 - 01/16 [place] 75.0 [facility] HEMATOLOGY Monocytes 8.3 2.0 - 12.0 01/16 [facility] HEMATOLOGY Eosinophils 3.5 0.0 - 4.0 01/16 [place] [facility] HEMATOLOGY Lymphocytes 26.8 20.0 - 01/16 [place] 40.0 [facility] URINE AND UA Ketones Negative Negative 11/29 [facility] *NA* /2016 [place] (11/28/16 9:18 PM) URINE AND UA Blood Negative Negative 11/29 [facility] (11/28/16 9:18 PM) [place] URINE AND UA 1.0 0.1 - 1.0 11/29 [facility] Urobilinogen /2016 [place] URINE AND UA Nitrite Negative Negative 11/29 [facility] (11/28/16 9:18 PM) [place] URINE AND UA WBC 6-10 /HPF None Seen 11/29 [facility] /HPF /2016 [place] URINE AND UA RBC 0-2 /HPF 0 - 2 11/29 STOOL /2016 [place] URINE AND UA Bili Negative Negative 11/29 STO[facility] *NA* /2016 [facility] (11/28/16 9:18 PM) URINE AND UA Bacteria Occasional None Seen 11/29 ST[facility] /HPF /HPF /2016 [facility] URINE AND UA Sq Epi Occasional Few /LPF 11/29 Result STOOL /LPF /2016 Comment: [facility] microscopic exam performed on UNSPUN Urine due to specimen less than 1ml. URINE AND UA Leuk Est Moderate Negative 11/29 STO[facility] *ABN* [place] (11/28/16 9:18 PM) URINE AND UA Color Yellow Yellow 11/29 STOOL *NA* [place] (11/28/16 9:18 PM) URINE AND UA pH 6.0 5.0 - 8.0 11/29 STOOL /2016 [place] URINE AND UA Protein Negative Negative 11/29 [facility] (11/28/16 9:18 PM) [place] URINE AND UA Glucose Negative Negative 11/29 [facility] (11/28/16 9:18 PM) [place] URINE AND UA Spec Grav <=1.005 <=1.030 11/29 STO[facility] *NA* [place] (11/28/16 9:18 PM) URINE AND UA Turbidity Clear Clear 11/29 [facility] (11/28/16 9:18 PM) [place] CARDIAC Troponin-I <0.02 0.00 - 11/29 ENZYMES 0.40 [place] CARDIAC CK MB 1.3 0.5 - 3.6 11/29 ENZYMES [place] CARDIAC Total CK 89 12 - 191 11/29 ENZYMES [place] CARDIAC CK-MB INDEX 1.5 0.0 - 2.5 11/29 ENZYMES [place] CHEM PANEL Globulin 3.9 2.7 - 4.2 11/29 [facility] CHEM PANEL eGFR 50 / Result Comment: The [facility] eGFR is calculated using the CKD-EPI formula. In most young, healthy individuals the eGFR will be >90 mL/min/1.73m2 . The eGFR declines with age. An eGFR of 60-89 may be normal in some populations, particularly the elderly, for whom the CKD-EPI formula has not been extensively validated. Use of the eGFR is not recommended in the following populations:< br/>
Brittani viduals with unstable creatinine concentration s, including patients and those with serious co-morbid conditions.<b r/>
Patie nts with extremes in muscle mass or diet.

The data above are obtained from the National Kidney Disease Education Program (NKDEP) which additionally recommends that when the eGFR is used in patients with extremes of body mass index for purposes of drug dosing, the eGFR should be multiplied by the estimated BMI. CHEM PANEL A/G Ratio 0.9 0.7 - 1.6 11/29 [place] CHEM PANEL ALANINE 24 0 - 65 / MH AMINOTRANSFE [place] [facility] CHEM PANEL Albumin Lvl 3.7 3.5 - 5.0 11/29 [place] CHEM PANEL Alk Phos 89 39 - 136 / [place] CHEM PANEL Glucose Lvl 112 70 - 99 11/29 [place] CHEM PANEL BUN 10 7 - 22 / [place] CHEM PANEL Creatinine 1.28 0.50 - 04/ MH Lvl 1.40 [place] CHEM PANEL CO2 30 24 - 32 / [place] CHEM PANEL Chloride Lvl 103 95 - 109 / [place] CHEM PANEL Calcium Lvl 9.5 8.5 - 10.5 / [place] CHEM PANEL AGAP 9.5 10.0 - 04/ MH 20.0 /2017 [place] CHEM PANEL B/C Ratio 8 6 - 25 / [facility] CHEM PANEL Bili Total 0.7 0.2 - 1.3 / [place] CHEM PANEL Sodium Lvl 139 135 - 145 / [place] CHEM PANEL Potassium 3.5 3.5 - 5.1 04/03 MH Lvl /2016 [place] CHEM PANEL Total 7.6 6.4 - 8.4 04/ MH Protein /2016 [place] CHEM PANEL ASPARTATE 14 0 - 37 04/ MH TRANSAMINASE /2016 [place] HEMATOLOGY MCHC 33.4 32.0 - 04/ MH 36.0 /2016 [place] HEMATOLOGY Platelet 261 133 - 450 04/ /2016 [place] HEMATOLOGY RDW 14.7 11.5 - 04/ MH 14.5 /2016 [place] HEMATOLOGY MPV 8.1 7.4 - 10.4 04/ MH /2016 [place] HEMATOLOGY RBC X 10x6 5.34 4.20 - 04/ MH 5.40 /2016 [place] HEMATOLOGY Hgb 15.5 12.0 - 04/ MH 16.0 /2016 [place] HEMATOLOGY MCV 87.0 80.0 - 04/ MH 98.0 /2016 [place] HEMATOLOGY Hct 46.4 36.0 - 04 MH 48.0 /2016 [place] HEMATOLOGY MCH 29.1 27.0 - 04/ MH 31.0 /2016 [place] HEMATOLOGY WBC X 10x3 8.0 3.7 - 10.4 04/ /2016 [place] HEMATOLOGY Basophils # 0.1 0.0 - 0.2 04/ /2016 [facility] HEMATOLOGY Lymphocytes 2.0 1.0 - 5.5 04/ MH # /2016 [place] HEMATOLOGY Segs-Bands # 5.1 1.5 - 8.1 04/ /2016 [place] HEMATOLOGY Eosinophils 0.2 0.0 - 0.5 04/ MH # /2016 [place] HEMATOLOGY Monocytes # 0.8 0.0 - 0.8 04/ /2016 [place] HEMATOLOGY Segs 63.2 45.0 - 04/ MH 75.0 /2016 [place] HEMATOLOGY Lymphocytes 24.3 20.0 - 04/ MH 40.0 /2016 [place] HEMATOLOGY Eosinophils 2.1 0.0 - 4.0 / [facility] HEMATOLOGY Monocytes 9.6 2.0 - 12.0 04/ /2016 [place] HEMATOLOGY Basophils 0.8 0.0 - 1.0 04/ [facility] VIRAL - Influ B Negative Negative 11/29 [facility] (11/28/16 8:10 PM) /2016 [place] VIRAL - Influ A Negative Negative 11/29 SER[facility] (11/28/16 8:10 PM) [place] CARDIAC CK-MB INDEX 1.3 0.0 - 2.5 11/07 ENZYMES /2016 [place] CARDIAC Troponin-I <0.02 0.00 - 11/07 EN[place]YMES 0.40 [place] CARDIAC CK MB 1.9 0.5 - 3.6 11/07 ENZYMES [place] CARDIAC Total CK 144 12 - 191 11/07 ENZYMES [place] CHEM PANEL eGFR 77 11/07 Result Comment: The [facility] eGFR is calculated using the CKD-EPI formula. In most young, healthy individuals the eGFR will be >90 mL/min/1.73m2 . The eGFR declines with age. An eGFR of 60-89 may be normal in some populations, particularly the elderly, for whom the CKD-EPI formula has not been extensively validated. Use of the eGFR is not recommended in the following populations:< br/>
Brittani viduals with unstable creatinine concentration s, including patients and those with serious co-morbid conditions.<b r/>
Patie nts with extremes in muscle mass or diet.

The data above are obtained from the National Kidney Disease Education Program (NKDEP) which additionally recommends that when the eGFR is used in patients with extremes of body mass index for purposes of drug dosing, the eGFR should be multiplied by the estimated BMI. CHEM PANEL ASPARTATE 17 0 - 37 11/07 MH TRANSAMINASE [place] CHEM PANEL Total 6.8 6.4 - 8.4 11/07 Protein [facility] CHEM PANEL Calcium Lvl 8.5 8.5 - 10.5 11/07 [place] CHEM PANEL Bili Total 0.8 0.2 - 1.3 11/07 [place] CHEM PANEL Chloride Lvl 106 95 - 109 11/07 [place] CHEM PANEL CO2 31 24 - 32 11/07 [place] CHEM PANEL Potassium 3.1 3.5 - 5.1 11/07 MH Lvl [place] CHEM PANEL Creatinine 0.90 0.50 - 11/07 MH Lvl 1.40 [facility] CHEM PANEL Sodium Lvl 144 135 - 145 11/07 [facility] CHEM PANEL BUN 12 7 - 22 11/07 [facility] CHEM PANEL Glucose Lvl 96 70 - 99 03/ [facility] CHEM PANEL Albumin Lvl 3.3 3.5 - 5.0 11/07 [facility] CHEM PANEL Alk Phos 76 39 - 136 11/07 [facility] CHEM PANEL ALANINE 20 0 - 65 03/ MH AMINOTRANS [facility] CHEM PANEL Globulin 3.5 2.7 - 4.2 11/07 [place] CHEM PANEL A/G Ratio 0.9 0.7 - 1.6 11/07 [place] CHEM PANEL AGAP 10.1 10.0 - 03/ MH 20.0 [place] CHEM PANEL B/C Ratio 13 6 - 25 11/07 [facility] HEMATOLOGY Eosinophils 2.8 0.0 - 4.0 11/07 [facility] HEMATOLOGY Eosinophils 0.2 0.0 - 0.5 11/07 MH /2016 [place] HEMATOLOGY Basophils # 0.1 0.0 - 0.2 11/07 [facility] HEMATOLOGY Monocytes # 0.7 0.0 - 0.8 11/07 [facility] HEMATOLOGY Basophils 0.8 0.0 - 1.0 11/07 [place] HEMATOLOGY Segs-Bands # 4.5 1.5 - 8.1 11/07 [place] HEMATOLOGY Lymphocytes 2.2 1.0 - 5.5 11/07 MH /2016 [place] HEMATOLOGY Segs 58.5 45.0 - 11/07 MH 75.0 [place] HEMATOLOGY Lymphocytes 28.8 20.0 - 03 MH 40.0 [place] HEMATOLOGY Monocytes 9.1 2.0 - 12.0 11/07 [facility] HEMATOLOGY Platelet 196 133 - 450 11/07 [facility] HEMATOLOGY RDW 14.3 11.5 - 11/07 MH 14. [facility] HEMATOLOGY MPV 8.1 7.4 - 10.4 11/07 [place] HEMATOLOGY WBC X 10x3 7.7 3.7 - 10.4 11/07 [facility] HEMATOLOGY Hgb 13.1 12.0 - 11/07 MH 16.0 [place] HEMATOLOGY RBC X 10x6 4.48 4.20 - 03 MH 5.40 [facility] HEMATOLOGY MCH 29.3 27.0 - 03 MH 31.0 /2016 [facility] HEMATOLOGY Hct 39.1 36.0 - 03 MH 48.0 /2016 [facility] HEMATOLOGY MCV 87.3 80.0 - 03 MH 98.0 /2016 [facility] HEMATOLOGY MCHC 33.6 32.0 - 03 MH 36.0 /2016 [place] DRUG U Benzodia Negative Negative 10/11 [place] SCREEN Scr *NA* /2016 [facility] (10/11/16 5:24 AM) Center DRUG U Keyla Scr Negative Negative 10/11 [place] SCREEN *NA* /2016 [facility] (10/11/16 5:24 AM) Center DRUG U Amph Scr Negative Negative 10/11 [place] SCREEN *NA* Medical (10/11/16 5:24 AM) Center DRUG U Cannab Scr Negative Negative 10/11 [place] SCREEN *NA* Medical (10/11/16 5:24 AM) Center DRUG U Cocaine Positive Negative 10/11 [place] SCREEN Scr *ABN* /2016 [facility] (10/11/16 5:24 AM) Center DRUG UDS Note See Note 10/11 [place] SCREEN (10/11/16 5:24 AM) /2016 Med[facility] l Center DRUG U Opiate Scr Negative Negative 10/11 [place] SCREEN *NA* /2016 [facility] (10/11/16 5:24 AM) Center DRUG U Phencyc Negative Negative 10/11 [facility] SCREEN Scr *NA* /2016 [facility] (10/11/16 5:24 AM) Center CARDIAC Troponin-I <0.02 0.00 - 10/11 [place] ENZYMES 0.40 [facility] HEMATOLOGY Eosinophils 0.4 0.0 - 0.5 10/11 [place] # /2016 [facility] HEMATOLOGY Basophils # 0.1 0.0 - 0.2 10/11 [place] [facility] HEMATOLOGY Eosinophils 6.3 0.0 - 4.0 10/11 [place] [facility] HEMATOLOGY Basophils 1.0 0.0 - 1.0 10/11 [facility] HEMATOLOGY Segs-Bands # 2.7 1.5 - 8.1 10/11 [place] [facility] HEMATOLOGY Lymphocytes 2.1 1.0 - 5.5 10/11 [place] # [facility] HEMATOLOGY Monocytes # 0.6 0.0 - 0.8 10/11 [place] /2016 [facility] HEMATOLOGY Lymphocytes 36.3 20.0 - 02 [place] 40.0 /2016 [facility] HEMATOLOGY Segs 46.0 45.0 - 10/11 [place] 75.0 [facility] HEMATOLOGY Monocytes 10.4 2.0 - 12.0 10/11 [facility] HEMATOLOGY MPV 8.7 7.4 - 10.4 10/11 [facility] HEMATOLOGY Platelet 194 133 - 450 10/11 [facility] HEMATOLOGY MCH 29.3 27.0 - 02 [place] 31.0 [facility] HEMATOLOGY MCV 87.2 80.0 - 10/11 [place] 98.0 [facility] HEMATOLOGY RDW 14.4 11.5 - 10/11 [place] 14.5 [facility] HEMATOLOGY MCHC 33.6 32.0 - 10/11 [place] 36.0 /2016 [facility] HEMATOLOGY Hgb 13.1 12.0 - 10/11 [place] 16.0 [facility] HEMATOLOGY RBC 4.45 4.20 - 10/11 [place] 5.40 [facility] HEMATOLOGY Hct 38.8 36.0 - 10/11 [place] 48.0 [facility] HEMATOLOGY WBC 5.8 3.7 - 10.4 10/11 [facility] LIPIDS CHD Risk 2.84 3.90 - 10/11 [place] 5.80 [facility] LIPIDS VLDL 14 10/11 [facility] LIPIDS LDL 87 <=99 mg/dL 10/11 [facility] (Calculated) [facility] LIPIDS Trig 71 <=149 10/11 mg/dL [facility] LIPIDS Chol 156 <=199 10/11 [place] mg/dL [facility] LIPIDS HDL 55 >=61 mg/dL 10/11 [facility] CARDIAC Troponin-I <0.02 0.00 - 10/11 [facility] ENZYMES 0. [facility] CARDIAC Troponin-I <0.02 0.00 - 10/10 [facility] ENZYMES 0. [facility] CHEM PANEL eGFR 92 10/10 Result Comment: The Medical eGFR is Center calculated using the CKD-EPI formula. In most young, healthy individuals the eGFR will be >90 mL/min/1.73m2 . The eGFR declines with age. An eGFR of 60-89 may be normal in some populations, particularly the elderly, for whom the CKD-EPI formula has not been extensively validated. Use of the eGFR is not recommended in the following populations:< br/>
Brittani viduals with unstable creatinine concentration s, including patients and those with serious co-morbid conditions.<b r/>
Patie nts with extremes in muscle mass or diet.

The data above are obtained from the National Kidney Disease Education Program (NKDEP) which additionally recommends that when the eGFR is used in patients with extremes of body mass index for purposes of drug dosing, the eGFR should be multiplied by the estimated BMI. CHEM PANEL BUN 8 7 - 22 10/10 [facility] CHEM PANEL Creatinine 0.78 0.50 - 10/10 [facility] Lvl 1.40 [facility] CHEM PANEL Glucose Lvl 108 70 - 99 10/10 [facility] CHEM PANEL Potassium 3.2 3.5 - 5.1 10/10 [facility] CHEM PANEL Calcium Lvl 9.3 8.5 - 10.5 10/10 [facility] CHEM PANEL CO2 31 24 - 32 10/10 [facility] CHEM PANEL Sodium Lvl 143 135 - 145 10/10 [facility] CHEM PANEL Chloride Lvl 108 95 - 109 10/10 [facility] CHEM PANEL AGAP 7.2 10.0 - 10/10 [facility] 20.0 [facility] HEMATOLOGY MCHC 33.8 32.0 - 02 [place] 36.0 [facility] HEMATOLOGY RDW 14.2 11.5 - 10/10 [place] 14.5 [facility] HEMATOLOGY MCH 29.4 27.0 - 02 [place] 31.0 [facility] HEMATOLOGY MCV 87.0 80.0 - 10/10 [place] 98.0 [facility] HEMATOLOGY Hgb 13.5 12.0 - 02 [place] 16.0 [facility] HEMATOLOGY Hct 39.8 36.0 - 10/10 [place] 48.0 [facility] HEMATOLOGY Platelet 208 133 - 450 10/10 [facility] HEMATOLOGY MPV 8.7 7.4 - 10.4 10/10 [facility] HEMATOLOGY WBC 6.6 3.7 - 10.4 10/10 [facility] HEMATOLOGY RBC 4.58 4.20 - 10/10 [place] 5.40 /2016 [facility] HEMATOLOGY Lymphocytes 1.8 1.0 - 5.5 10/10 [facility] /[facility] HEMATOLOGY Monocytes # 0.6 0.0 - 0.8 10/10 [facility] HEMATOLOGY Eosinophils 0.3 0.0 - 0.5 10/10 [facility] # [facility] HEMATOLOGY Basophils 0.6 0.0 - 1.0 10/10 [facility] HEMATOLOGY Segs-Bands # 3.9 1.5 - 8.1 10/10 [facility] HEMATOLOGY Monocytes 9.0 2.0 - 12.0 10/10 [facility] HEMATOLOGY Eosinophils 4.1 0.0 - 4.0 10/[facility] HEMATOLOGY Segs 59.5 45.0 - 10/10 [place] 75.0 [facility] HEMATOLOGY Lymphocytes 26.8 20.0 - 10/10 [place] 40.0 [facility] CARDIAC Troponin-I <0.02 0.00 - 04/14 [facility] ENZYMES 0.40 [facility] ELECTROLYT AGAP 13.5 10.0 - 04/14 [facility] ES 20.0 [facility] ELECTROLYT eGFR 79 04/14 Result [facility] Comment: The Medical eGFR is Center calculated using the CKD-EPI formula. In most young, healthy individuals the eGFR will be >90 mL/min/1.73m2 . The eGFR declines with age. An eGFR of 60-89 may be normal in some populations, particularly the elderly, for whom the CKD-EPI formula has not been extensively validated. Use of the eGFR is not recommended in the following populations:< br/>
Brittani viduals with unstable creatinine concentration s, including patients and those with serious co-morbid conditions.<b r/>
Patie nts with extremes in muscle mass or diet.

The data above are obtained from the National Kidney Disease Education Program (NKDEP) which additionally recommends that when the eGFR is used in patients with extremes of body mass index for purposes of drug dosing, the eGFR should be multiplied by the estimated BMI. ELECTROLYT Creatinine 0.89 0.50 - 04/14 [facility] ES Lvl 1.40 [facility] ELECTROLYT BUN 9 7 - 22 04/14 [facility] ELECTROLYT Glucose Lvl 72 70 - 99 04/14 [facility] ELECTROLYT Chloride Lvl 107 95 - 109 04/14 [place] [facility] ELECTROLYT CO2 25 24 - 32 04/14 [facility] ELECTROLYT Calcium Lvl 8.9 8.5 - 10.5 04/14 [place] [facility] ELECTROLYT Sodium Lvl 142 135 - 145 04/14 [facility] ELECTROLYT Potassium 3.5 3.5 - 5.1 04/14 [facility] ES Lvl /2015 [facility] HEMATOLOGY Platelet 181 133 - 450 04/14 [facility] HEMATOLOGY MPV 8.5 7.4 - 10.4 04/14 [facility] HEMATOLOGY MCHC 33.5 32.0 - 04/14 [place] 36.0 /2015 [facility] HEMATOLOGY MCH 28.7 27.0 - 04/14 [place] 31.0 [facility] HEMATOLOGY RDW 15.0 11.5 - 04/14 [place] 14.5 /2015 [facility] HEMATOLOGY Hct 38.3 36.0 - 04/14 [place] 48.0 [facility] HEMATOLOGY MCV 85.6 80.0 - 04/14 [place] 98.0 /2015 [facility] HEMATOLOGY Hgb 12.9 12.0 - 04/14 [place] 16.0 /2015 [facility] HEMATOLOGY RBC 4.48 4.20 - 04/14 [place] 5.40 /2015 [facility] HEMATOLOGY WBC 5.6 3.7 - 10.4 04/14 [facility] HEMATOLOGY Basophils # 0.1 0.0 - 0.2 04/14 [place] /2015 [facility] HEMATOLOGY Lymphocytes 2.2 1.0 - 5.5 04/14 [place] # /2015 [facility] HEMATOLOGY Eosinophils 0.3 0.0 - 0.5 04/14 [place] # /2015 [facility] HEMATOLOGY Monocytes # 0.5 0.0 - 0.8 04/14 [place] /2015 [facility] HEMATOLOGY Eosinophils 6.1 0.0 - 4.0 04/14 [place] /2015 [facility] HEMATOLOGY Basophils 1.1 0.0 - 1.0 04/14 [place] [facility] HEMATOLOGY Segs-Bands # 2.5 1.5 - 8.1 04/14 [place] [facility] HEMATOLOGY Lymphocytes 38.8 20.0 - 04/14 [place] 40.0 /2015 [facility] HEMATOLOGY Monocytes 9.2 2.0 - 12.0 04/14 [facility] HEMATOLOGY Segs 44.8 45.0 - 04/14 [place] 75.0 [facility] TOXICOLOGY Ethanol Lvl 8 04/14 [facility] TOXICOLOGY Etoh (%) 0.008 04/14 [facility] CARDIAC Troponin-I <0.02 0.00 - 03/12 ENZYMES 0.40 [facility] LIPIDS CHD Risk 3.39 3.90 - 03/12 5.80 /2015 [facility] LIPIDS VLDL 18 03/12 [facility] LIPIDS LDL 73 <=99 mg/dL 03/12 (Calculated) [facility] LIPIDS Trig 90 <=149 03/12 mg/dL [facility] LIPIDS Chol 129 <=199 03/12 mg/dL [facility] LIPIDS HDL 38 >=61 mg/dL 03/12 [facility] SPECIAL Hgb A1C 5.9 <=5.6 % 03/12 CHEMISTRY /2015 [facility] CARDIAC Total CK 81 12 - 191 03/12 ENZYMES /2015 [facility] CARDIAC Troponin-I 0.02 0.00 - 03/12 ENZYMES 0.40 [facility] CARDIAC CK-MB INDEX 1.6 0.0 - 2.5 03/12 EN[facility] CARDIAC CK MB 1.3 0.5 - 3.6 03/12 ENZYMES /2015 [facility] HEMATOLOGY PROTIME 14.0 12.0 - 03/11 MH 14.7 /2015 [facility] HEMATOLOGY INR 1.05 0.85 - 03/11 MH 1.17 [facility] HEMATOLOGY aPTT 38.7 22.9 - 03/11 35.8 /2015 [facility] HEMATOLOGY D-Dimer 0.49 03/11 /2015 [facility] CARDIAC CK-MB INDEX 1.6 0.0 - 2.5 03/11 EN[facility] CARDIAC CK MB 1.3 0.5 - 3.6 07/14 MH ENZYMES /2016 [facility] CARDIAC Troponin-I <0.02 0.00 - 07 ENZYMES 0.40 /2016 [facility] CARDIAC Total CK 83 12 - 191 / MH ENZYMES /2016 [facility] CARDIAC proBNP 50 0 - 125 / MH ENZYMES /2016 [facility] CHEM PANEL Lipase Lvl 196 73 - 393 03/11 MH [facility] CHEM PANEL eGFR 110 / Result Comment: The [facility] eGFR is calculated using the CKD-EPI formula. In most young, healthy individuals the eGFR will be >90 mL/min/1.73m2 . The eGFR declines with age. An eGFR of 60-89 may be normal in some populations, particularly the elderly, for whom the CKD-EPI formula has not been extensively validated. Use of the eGFR is not recommended in the following populations:< br/>
Brittani viduals with unstable creatinine concentration s, including patients and those with serious co-morbid conditions.<b r/>
Patie nts with extremes in muscle mass or diet.

The data above are obtained from the National Kidney Disease Education Program (NKDEP) which additionally recommends that when the eGFR is used in patients with extremes of body mass index for purposes of drug dosing, the eGFR should be multiplied by the estimated BMI. CHEM PANEL Globulin 2.8 2.0 - 4.0 03/11 [facility] CHEM PANEL A/G Ratio 1.2 0.7 - 1.6 03/11 [facility] CHEM PANEL B/C Ratio 15 6 - 25 03/11 [facility] CHEM PANEL AGAP 10.4 10.0 - 03/11 MH 20.0 /2016 [facility] CHEM PANEL ASPARTATE 14 0 - 37 / MH TRANSAMINASE /2015 [facility] CHEM PANEL Total 6.1 6.4 - 8.4 03/11 Protein /2015 [facility] CHEM PANEL Bili Total 0.5 0.2 - 1.3 03/11 [facility] CHEM PANEL Calcium Lvl 7.7 8.5 - 10.5 03/11 /2015 [facility] CHEM PANEL CO2 26 24 - 32 03/11 [facility] CHEM PANEL Chloride Lvl 110 95 - 109 03/11 [facility] CHEM PANEL Potassium 3.4 3.5 - 5.1 03/11 MH Lvl /2015 [facility] CHEM PANEL Sodium Lvl 143 135 - 145 07/ [facility] CHEM PANEL Creatinine 0.61 0.50 - 07 MH Lvl 1.40 [facility] CHEM PANEL BUN 9 7 - 22 03/11 [facility] CHEM PANEL Alk Phos 76 39 - 136 07 [facility] CHEM PANEL Glucose Lvl 88 70 - 99 07 [facility] CHEM PANEL Albumin Lvl 3.3 3.5 - 5.0 07 [facility] CHEM PANEL ALANINE 15 0 - 65 07 MH AMINOTRANSFE [facility] HEMATOLOGY Lymphocytes 1.8 1.0 - 5.5 07 MH # /2015 [facility] HEMATOLOGY Monocytes # 0.5 0.0 - 0.8 07 [facility] HEMATOLOGY Basophils 1.0 0.0 - 1.0 03/11 [facility] HEMATOLOGY Segs-Bands # 4.1 1.5 - 8.1 03/11 [facility] HEMATOLOGY Eosinophils 0.2 0.0 - 0.5 03/11 MH # /2015 [facility] HEMATOLOGY Basophils # 0.1 0.0 - 0.2 07 [facility] HEMATOLOGY Segs 61.4 45.0 - 07 MH 75.0 [facility] HEMATOLOGY Eosinophils 3.5 0.0 - 4.0 03/11 [facility] HEMATOLOGY Lymphocytes 26.6 20.0 - 03/11 MH 40.0 [facility] HEMATOLOGY Monocytes 7.5 2.0 - 12.0 07 [facility] HEMATOLOGY WBC X 10x3 6.7 3.7 - 10.4 07 [facility] HEMATOLOGY Hgb 12.2 12.0 - 07 MH 16.0 [facility] HEMATOLOGY RBC X 10x6 4.26 4.20 - 07 MH 5.40 [facility] HEMATOLOGY MCH 28.7 27.0 - 07 MH 31.0 [facility] HEMATOLOGY MCV 86.0 80.0 - 07 MH 98.0 [facility] HEMATOLOGY RDW 14.9 11.5 - 07 MH 14. [facility] HEMATOLOGY MCHC 33.3 32.0 - 07 MH 36.0 [facility] HEMATOLOGY Hct 36.6 36.0 - 07 MH 48.0 [facility] HEMATOLOGY MPV 8.7 7.4 - 10.4 03/11 [facility] HEMATOLOGY Platelet 171 133 - 450 03/11 [facility] URINE AND UA WBC 0-2 /HPF None Seen 03/11 STOOL /HPF /2015 [facility] URINE AND UA Nitrite Negative Negative 03/11 STOOL (03/11/16 3:14 PM) /2015 [place] URINE AND UA Leuk Est Negative Negative 03/11 STOOL (03/11/16 3:14 PM) /2015 [place] URINE AND UA Bacteria Occasional None Seen 03/11 STOOL /HPF /HPF /2015 [facility] URINE AND UA RBC 0-2 /HPF 0 - 2 03/11 STOOL /2015 [facility] URINE AND UA Sq Epi Occasional Few /LPF 03/11 STOOL /LPF /2015 [facility] URINE AND UA Blood Negative Negative 03/11 STOOL (03/11/16 3:14 PM) /2015 [place] URINE AND UA 0.2 0.1 - 1.0 03/11 [facility] Urobilinogen /2015 [facility] URINE AND UA Turbidity Clear Clear 03/11 STOOL (03/11/16 3:14 PM) /2015 [place] URINE AND UA Glucose Negative Negative 03/11 STOOL (03/11/16 3:14 PM) /2015 [place] URINE AND UA Spec Grav <=1.005 <=1.030 03/11 STOOL *NA* /2015 [facility] (03/11/16 3:14 PM) URINE AND UA pH 6.5 5.0 - 8.0 03/11 STOOL /2015 [facility] URINE AND UA Ketones Negative Negative 03/11 STOOL *NA* /2015 [facility] (03/11/16 3:14 PM) URINE AND UA Bili Negative Negative 03/11 STOOL *NA* [facility] (03/11/16 3:14 PM) URINE AND UA Protein Negative Negative 03/11 STOOL (03/11/16 3:14 PM) /2015 [place] URINE AND UA Color Yellow Yellow 03/11 STOOL *NA* /2015 [facility] (03/11/16 3:14 PM) URINE AND UA Color Yellow Yellow 03/01 STOOL *NA* [facility] (02/29/16 7:22 PM) URINE AND UA pH 6.0 5.0 - 8.0 03/01 STOOL /2015 [facility] URINE AND UA Turbidity Clear Clear 03/01 STOOL (02/29/16 7:22 PM) /2015 [place] URINE AND UA Spec Grav 1.015 <=1.030 03/01 STOOL /2015 [facility] URINE AND UA Leuk Est Trace Negative 03/01 STOOL *ABN* /2015 [facility] (02/29/16 7:22 PM) URINE AND UA Bacteria Few /HPF None Seen 03/01 STOOL /HPF /2015 [facility] URINE AND UA RBC None Seen 0 - 2 03/01 [facility] (02/29/16 7:22 PM) /2015 [place] URINE AND UA Sq Epi Moderate Few /LPF 03/01 STOOL /LPF /2015 [facility] URINE AND UA WBC 0-2 /HPF None Seen 03/01 STOOL /HPF /2015 [facility] URINE AND UA Blood Negative Negative 03/01 ST[facility] (02/29/16 7:22 PM) /2015 [place] URINE AND UA 1.0 0.1 - 1.0 03/01 STOOL Urobilinogen /2015 [facility] URINE AND UA Nitrite Negative Negative 03/01 STOOL (02/29/16 7:22 PM) /2015 [place] URINE AND UA Few /HPF None Seen 03/01 STOOL Trichomonas /HPF /2015 [facility] URINE AND UA Protein Negative Negative 03/01 [facility] (02/29/16 7:22 PM) [place] URINE AND UA Bili Negative Negative 03/01 STOOL *NA* /2015 [facility] (02/29/16 7:22 PM) URINE AND UA Ketones Negative Negative 03/01 STOOL *NA* /2015 [facility] (02/29/16 7:22 PM) URINE AND UA Glucose Negative Negative 03/01 ST[facility] (02/29/16 7:22 PM) /2015 [place] CARDIAC Troponin-I <0.02 0.00 - 02/28 ENZYMES 0.40 /2015 [facility] CARDIAC CK MB 1.1 0.5 - 3.6 02/28 ENZYMES [facility] CARDIAC Total CK 136 12 - 191 02/28 ENZYMES /2015 [facility] CARDIAC proBNP 7 0 - 125 02/28 ENZYMES /2015 [facility] CARDIAC CK-MB INDEX 0.8 0.0 - 2.5 MH ENZYMES /2015 [facility] CHEM PANEL eGFR 80 02/28 Result Comment: The [facility] eGFR is calculated using the CKD-EPI formula. In most young, healthy individuals the eGFR will be >90 mL/min/1.73m2 . The eGFR declines with age. An eGFR of 60-89 may be normal in some populations, particularly the elderly, for whom the CKD-EPI formula has not been extensively validated. Use of the eGFR is not recommended in the following populations:< br/>
Brittani viduals with unstable creatinine concentration s, including patients and those with serious co-morbid conditions.<b r/>
Patie nts with extremes in muscle mass or diet.

The data above are obtained from the National Kidney Disease Education Program (NKDEP) which additionally recommends that when the eGFR is used in patients with extremes of body mass index for purposes of drug dosing, the eGFR should be multiplied by the estimated BMI. CHEM PANEL ASPARTATE 13 0 - 37 02/28 TRANSAMINASE [facility] CHEM PANEL A/G Ratio 1.0 0.7 - 1.6 02/28 [facility] CHEM PANEL Globulin 3.6 2.0 - 4.0 02/28 [facility] CHEM PANEL B/C Ratio 9 6 - 25 02/28 [facility] CHEM PANEL Total 7.1 6.4 - 8.4 02/28 [facility] CHEM PANEL AGAP 10.0 10.0 - 02/28 MH 20.0 /2015 [facility] CHEM PANEL Sodium Lvl 143 135 - 145 02/28 [facility] CHEM PANEL Potassium 3.0 3.5 - 5.1 02/28 Result Lvl /2015 Comment: [facility] Critical Result(s) called to HAI RUVALCABA RN at 02/29/2016 18:45 by MRE. Read back OK. CHEM PANEL Creatinine 0.88 0.50 - 07 MH Lvl 1.40 /2015 [facility] CHEM PANEL CO2 30 24 - 32 02/28 [facility] CHEM PANEL Bili Total 0.6 0.2 - 1.3 02/28 [facility] CHEM PANEL Calcium Lvl 8.7 8.5 - 10.5 02/28 [facility] CHEM PANEL Chloride Lvl 106 95 - 109 /2015 [facility] CHEM PANEL ALANINE 15 0 - 65 07/ MH AMINOTRANSFE /2015 [facility] RASE CHEM PANEL Alk Phos 88 39 - 136 07/ /2015 [facility] CHEM PANEL Albumin Lvl 3.5 3.5 - 5.0 07/ /2015 [facility] CHEM PANEL BUN 8 7 - 22 07/ /2015 [facility] CHEM PANEL Glucose Lvl 89 70 - 99 07/ /2015 [facility] HEMATOLOGY PROTIME 13.2 12.0 - 07/ MH 14.7 /2015 [facility] HEMATOLOGY INR 0.97 0.85 - 07/ MH 1.17 /2015 [facility] HEMATOLOGY RDW 15.3 11.5 - 07 MH 14.5 /2015 [facility] HEMATOLOGY MCHC 32.9 32.0 - 07/ MH 36.0 /2015 [facility] HEMATOLOGY Hct 43.8 36.0 - 07/ MH 48.0 /2015 [facility] HEMATOLOGY MCH 28.1 27.0 - 07 MH 31.0 [facility] HEMATOLOGY MCV 85.5 80.0 - 07/ MH 98.0 /2015 [facility] HEMATOLOGY WBC X 10x3 5.3 3.7 - 10.4 07/ /2015 [facility] HEMATOLOGY Hgb 14.4 12.0 - 07/ MH 16.0 /2015 [facility] HEMATOLOGY RBC X 10x6 5.12 4.20 - 07/ MH 5.40 /2015 [facility] HEMATOLOGY Platelet 197 133 - 450 07/ MH /2015 [facility] HEMATOLOGY MPV 8.1 7.4 - 10.4 07/ /2015 [facility] HEMATOLOGY Segs 57.2 45.0 - 07/ MH 75.0 /2015 [facility] HEMATOLOGY Monocytes 11.7 2.0 - 12.0 07/ MH /2015 [facility] HEMATOLOGY Lymphocytes 24.1 20.0 - 07/ MH 40.0 [facility] HEMATOLOGY Basophils # 0.1 0.0 - 0.2 07/03 MH /2015 [facility] HEMATOLOGY Monocytes # 0.6 0.0 - 0.8 07/ MH /2015 [facility] HEMATOLOGY Lymphocytes 1.3 1.0 - 5.5 07/03 MH # /2015 [facility] HEMATOLOGY Eosinophils 0.3 0.0 - 0.5 07/03 MH # /2015 [facility] HEMATOLOGY Segs-Bands # 3.0 1.5 - 8.1 02/28 [facility] HEMATOLOGY Eosinophils 5.9 0.0 - 4.0 02/28 [facility] HEMATOLOGY Basophils 1.1 0.0 - 1.0 02/28 [facility] CARDIAC CK MB Index 0.7 0.0 - 2.5 09/04 ENZYMES [facility] CARDIAC CK MB 0.7 0.5 - 3.6 09/04 ENZYMES /2015 [facility] CARDIAC Troponin-I <0.02 0.00 - 09/04 ENZYMES 0.40 /2015 [facility] CARDIAC Total CK 97 12 - 191 09/04 EN[facility]YMES [facility] ELECTROLYT AGAP 18.3 10.0 - 09/04 ES 20.0 /2015 [facility] ELECTROLYT eGFR 78 09/04 [facility] Comment: The [facility] eGFR is calculated using the CKD-EPI formula. In most young, healthy individuals the eGFR will be >90 mL/min/1.73m2 . The eGFR declines with age. An eGFR of 60-89 may be normal in some populations, particularly the elderly, for whom the CKD-EPI formula has not been extensively validated. Use of the eGFR is not recommended in the following populations:< br/>
Brittani viduals with unstable creatinine concentration s, including patients and those with serious co-morbid conditions.<b r/>
Patie nts with extremes in muscle mass or diet.

The data above are obtained from the National Kidney Disease Education Program (NKDEP) which additionally recommends that when the eGFR is used in patients with extremes of body mass index for purposes of drug dosing, the eGFR should be multiplied by the estimated BMI. ELECTROLYT Glucose Lvl 134 70 - 99 09/04 [facility] ELECTROLYT BUN 10 7 - 22 09/04 [facility] ELECTROLYT Creatinine 0.90 0.50 - 09/04 ES Lvl 1.40 /2015 [facility] ELECTROLYT CO2 20 24 - 32 09/04 [facility] ELECTROLYT Calcium Lvl 9.4 8.5 - 10.5 09/04 [facility] ELECTROLYT Potassium 4.3 3.5 - 5.1 09/04 ES Lvl /2015 [facility] ELECTROLYT Chloride Lvl 106 95 - 109 09/04 [facility] ELECTROLYT Sodium Lvl 140 135 - 145 09/04 ES /2015 [facility] HEMATOLOGY WBC 9.6 3.7 - 10.4 09/04 /2015 [facility] HEMATOLOGY Hct 41.4 36.0 - 09/04 48.0 /2015 [facility] HEMATOLOGY Hgb 13.1 12.0 - 09/04 MH 16.0 /2015 [facility] HEMATOLOGY RBC 4.74 4.20 - 09/04 MH 5.40 /2015 [facility] HEMATOLOGY MCV 87.3 80.0 - 09/04 98.0 /2015 [facility] HEMATOLOGY MCHC 31.5 32.0 - 09/04 MH 36.0 /2015 [facility] HEMATOLOGY MCH 27.5 27.0 - 09/04 MH 31.0 /2015 [facility] HEMATOLOGY MPV 8.7 7.4 - 10.4 09/04 /2015 [facility] HEMATOLOGY Platelet 226 133 - 450 09/04 /2015 [facility] HEMATOLOGY RDW 14.4 11.5 - 09/04 14.5 /2015 [facility] HEMATOLOGY Monocytes # 0.1 0.0 - 0.8 09/04 /2015 [facility] HEMATOLOGY Lymphocytes 0.5 1.0 - 5.5 09/04 MH # /2015 [facility] HEMATOLOGY RBC Morph Normal 09/04 (09/04/15 11:04 AM) /2015 [facility] est HEMATOLOGY Plt Morph Normal 09/04 (09/04/15 11:04 AM) /2015 [facility] est HEMATOLOGY Segs 93.3 45.0 - 09/04 75.0 /2015 [facility] HEMATOLOGY Basophils 0.2 0.0 - 1.0 09/04 /2015 [facility] HEMATOLOGY Lymphocytes 5.4 20.0 - 09/04 40.0 /2015 [facility] HEMATOLOGY Monocytes 1.1 2.0 - 12.0 09/04 /2015 [facility] HEMATOLOGY Segs-Bands # 9.0 1.5 - 8.1 09/04 [facility] LIPIDS VLDL 14 09/04 [facility] LIPIDS Chol 198 <=199 09/04 mg/dL /2015 [facility] LIPIDS HDL 54 >=61 mg/dL 09/04 [facility] LIPIDS Trig 71 <=149 09/04 mg/dL /2015 [facility] LIPIDS LDL 130 <=99 mg/dL 09/04 (Calculated) /2015 [facility] LIPIDS CHD Risk 3.67 3.90 - 09/04 5.80 /2015 [facility] CARDIAC CK MB Index 0.6 0.0 - 2.5 09/04 MH ENZYMES /2015 [facility] CARDIAC CK MB 0.6 0.5 - 3.6 09/04 ENZYMES /2015 [facility] CARDIAC Troponin-I <0.02 0.00 - 09/04 ENZYMES 0.40 [facility] CARDIAC Total CK 103 12 - 191 09/04 MH ENZYMES /2015 [facility] CARDIAC Total CK 113 12 - 191 09/04 ENZYMES /2015 [facility] CARDIAC Troponin-I <0.02 0.00 - 09/04 ENZYMES 0.40 [facility] CARDIAC CK MB 0.8 0.5 - 3.6 09/04 ENZYMES /2015 [facility] CARDIAC CK MB Index 0.7 0.0 - 2.5 09/04 ENZYMES [facility] CHEM PANEL eGFR 87 09/04 [facility] Comment: The [facility] eGFR is calculated using the CKD-EPI formula. In most young, healthy individuals the eGFR will be >90 mL/min/1.73m2 . The eGFR declines with age. An eGFR of 60-89 may be normal in some populations, particularly the elderly, for whom the CKD-EPI formula has not been extensively validated. Use of the eGFR is not recommended in the following populations:< br/>
Brittani viduals with unstable creatinine concentration s, including patients and those with serious co-morbid conditions.<b r/>
Patie nts with extremes in muscle mass or diet.

The data above are obtained from the National Kidney Disease Education Program (NKDEP) which additionally recommends that when the eGFR is used in patients with extremes of body mass index for purposes of drug dosing, the eGFR should be multiplied by the estimated BMI. CHEM PANEL BUN 8 7 - 22 09/04 [facility] CHEM PANEL Creatinine 0.82 0.50 - 09/04 MH Lvl 1.40 [facility] CHEM PANEL Glucose Lvl 115 70 - 99 09/04 [facility] CHEM PANEL Chloride Lvl 106 95 - 109 09/04 [facility] CHEM PANEL Potassium 3.9 3.5 - 5.1 09/04 MH Lvl [facility] CHEM PANEL Sodium Lvl 141 135 - 145 09/04 [facility] CHEM PANEL AGAP 13.9 10.0 - 09/04 MH 20.0 [facility] CHEM PANEL Calcium Lvl 9.2 8.5 - 10.5 09/04 [facility] CHEM PANEL CO2 25 24 - 32 09/04 /2015 [facility] HEMATOLOGY WBC 7.4 3.7 - 10.4 09/04 [facility] HEMATOLOGY Hgb 12.4 12.0 - 09/04 MH 16.0 /2015 [facility] HEMATOLOGY RBC 4.57 4.20 - 09/04 MH 5.40 /2015 [facility] HEMATOLOGY Hct 39.4 36.0 - 09/04 MH 48.0 /2015 [facility] HEMATOLOGY MCV 86.1 80.0 - 09/04 98.0 /2015 [facility] HEMATOLOGY RDW 14.7 11.5 - 09/04 MH 14.5 /2015 [facility] HEMATOLOGY MCHC 31.6 32.0 - 09/04 MH 36.0 /2015 [facility] HEMATOLOGY MCH 27.2 27.0 - 09/04 MH 31.0 /2015 [facility] HEMATOLOGY MPV 8.3 7.4 - 10.4 09/04 [facility] HEMATOLOGY Platelet 239 133 - 450 09/04 [facility] HEMATOLOGY Eosinophils 5.5 0.0 - 4.0 09/04 [facility] HEMATOLOGY Monocytes 6.5 2.0 - 12.0 09/04 [facility] HEMATOLOGY Lymphocytes 31.7 20.0 - 09/04 40.0 [facility] HEMATOLOGY Segs 55.0 45.0 - 09/04 75.0 /2015 [facility] HEMATOLOGY Monocytes # 0.5 0.0 - 0.8 09/04 [facility] HEMATOLOGY Lymphocytes 2.3 1.0 - 5.5 09/04 # /2015 [facility] HEMATOLOGY Segs-Bands # 4.0 1.5 - 8.1 09/04 [facility] HEMATOLOGY Basophils 1.3 0.0 - 1.0 09/04 [facility] HEMATOLOGY Basophils # 0.1 0.0 - 0.2 09/04 [facility] HEMATOLOGY Eosinophils 0.4 0.0 - 0.5 09/04 MH # /2015 [facility] [facility] CARDIAC Troponin-I <0.02 0.00 - 07/16 ENZYMES 0.40 [facility] CARDIAC Total CK 75 12 - 191 07/16 MH ENZYMES /2014 [facility] CARDIAC CK MB 0.9 0.5 - 3.6 07/16 MH ENZYMES /2014 [facility] CARDIAC CK-MB INDEX 1.2 0.0 - 2.5 07/16 MH ENZYMES /2014 [facility] CHEM PANEL eGFR 105 07/16 Result Comment: The [facility] eGFR is calculated using the CKD-EPI formula. In most young, healthy individuals the eGFR will be >90 mL/min/1.73m2 . The eGFR declines with age. An eGFR of 60-89 may be normal in some populations, particularly the elderly, for whom the CKD-EPI formula has not been extensively validated. Use of the eGFR is not recommended in the following populations:< br/>
Brittani viduals with unstable creatinine concentration s, including patients and those with serious co-morbid conditions.<b r/>
Patie nts with extremes in muscle mass or diet.

The data above are obtained from the National Kidney Disease Education Program (NKDEP) which additionally recommends that when the eGFR is used in patients with extremes of body mass index for purposes of drug dosing, the eGFR should be multiplied by the estimated BMI. CHEM PANEL Bili Total 0.6 0.2 - 1.3 07/16 [facility] CHEM PANEL Albumin Lvl 3.1 3.5 - 5.0 07/16 [facility] CHEM PANEL Calcium Lvl 9.0 8.5 - 10.5 07/16 [facility] CHEM PANEL Total 6.3 6.4 - 8.4 07/16 [facility] CHEM PANEL AST 14 0 - 37 07/16 [facility] CHEM PANEL Alk Phos 89 39 - 136 07/16 [facility] CHEM PANEL ALT 19 0 - 65 07/16 [place] CHEM PANEL CO2 25 24 - 32 07/16 [place] CHEM PANEL Potassium 4.2 3.5 - 5.1 07/16 [facility] [place] CHEM PANEL Chloride Lvl 108 95 - 109 07/16 [place] CHEM PANEL BUN 14 7 - 22 07/16 [facility] CHEM PANEL Creatinine 0.70 0.50 - 11 MH Lvl 1.40 /2014 [facility] CHEM PANEL Sodium Lvl 139 135 - 145 07/16 [place] CHEM PANEL Glucose Lvl 78 70 - 99 07/16 [place] CHEM PANEL B/C Ratio 20 6 - 25 07/16 [facility] CHEM PANEL AGAP 10.2 10.0 - 07/16 MH 20.0 /2014 [facility] CHEM PANEL A/G Ratio 1.0 0.7 - 1.6 07/16 [place] CHEM PANEL Globulin 3.2 2.0 - 4.0 11 MH /2014 [facility] HEMATOLOGY MPV 8.6 7.4 - 10.4 07/16 MH /2014 [facility] HEMATOLOGY Platelet 166 133 - 450 07/16 MH /2014 [facility] HEMATOLOGY RDW 14.3 11.5 - 18 MH 14.5 /2014 [facility] HEMATOLOGY RBC 4.53 4.20 - 07/16 MH 5.40 /2014 [facility] HEMATOLOGY WBC 5.5 3.7 - 10.4 07/16 MH /2014 [facility] HEMATOLOGY MCH 27.9 27.0 - 07/16 MH 31.0 /2014 [facility] HEMATOLOGY MCHC 31.5 32.0 - 07/16 MH 36.0 /2014 [facility] HEMATOLOGY MCV 88.6 80.0 - 07/16 MH 98.0 /2014 [facility] HEMATOLOGY Hct 40.2 36.0 - 07/16 MH 48.0 /2014 [facility] HEMATOLOGY Hgb 12.6 12.0 - 07/16 MH 16.0 /2014 [facility] HEMATOLOGY Eosinophils 0.2 0.0 - 0.5 07/16 MH # /2014 [facility] HEMATOLOGY Lymphocytes 2.0 1.0 - 5.5 07/16 MH # /2014 [facility] HEMATOLOGY Basophils 0.9 0.0 - 1.0 07/16 MH /2014 [facility] HEMATOLOGY Monocytes # 0.6 0.0 - 0.8 07/16 MH /2014 [facility] HEMATOLOGY Segs-Bands # 2.6 1.5 - 8.1 07/16 MH /2014 [facility] HEMATOLOGY Monocytes 11.0 2.0 - 12.0 07/16 MH /2014 [facility] HEMATOLOGY Eosinophils 4.0 0.0 - 4.0 07/16 MH /2014 [facility] HEMATOLOGY Lymphocytes 36.1 20.0 - 07/16 MH 40.0 /2014 [facility] HEMATOLOGY Segs 48.0 45.0 - 07/16 MH 75.0 /2014 [facility] HEMATOLOGY Basophils # 0.1 0.0 - 0.2 07/16 MH /2014 [facility] CARDIAC Troponin-I <0.02 0.00 - 07/16 MH ENZYMES 0.40 [facility] CARDIAC Total CK 88 12 - 191 07/16 MH ENZYMES /2014 [facility] CARDIAC CK MB Index 1.1 0.0 - 2.5 07/16 MH ENZYMES /2014 [facility] CARDIAC CK MB 1.0 0.5 - 3.6 07/16 MH ENZYMES /2014 [facility] CARDIAC Troponin-I <0.02 0.00 - 07/15 MH ENZYMES 0.40 /2014 [facility] CARDIAC CK MB 1.2 0.5 - 3.6 07/15 ENZYMES /2014 [facility] CARDIAC Total CK 103 12 - 191 07/15 ENZYMES [facility] CARDIAC CK MB Index 1.2 0.0 - 2.5 07/15 ENZYMES [facility] CHEM PANEL eGFR 90 07/15 [facility] Comment: The [facility] eGFR is calculated using the CKD-EPI formula. In most young, healthy individuals the eGFR will be >90 mL/min/1.73m2 . The eGFR declines with age. An eGFR of 60-89 may be normal in some populations, particularly the elderly, for whom the CKD-EPI formula has not been extensively validated. Use of the eGFR is not recommended in the following populations:< br/>
Brittani viduals with unstable creatinine concentration s, including patients and those with serious co-morbid conditions.<b r/>
Patie nts with extremes in muscle mass or diet.

The data above are obtained from the National Kidney Disease Education Program (NKDEP) which additionally recommends that when the eGFR is used in patients with extremes of body mass index for purposes of drug dosing, the eGFR should be multiplied by the estimated BMI. CHEM PANEL Alk Phos 91 39 - 136 07/15 [facility] CHEM PANEL AST 19 0 - 37 07/15 [facility] CHEM PANEL ALT 17 0 - 65 07/15 [facility] CHEM PANEL B/C Ratio 12 6 - 25 07/15 [facility] CHEM PANEL Bili Total 0.8 0.2 - 1.3 07/15 [facility] CHEM PANEL AGAP 11.1 10.0 - 07/15 MH 20.0 /2014 [facility] CHEM PANEL Albumin Lvl 3.5 3.5 - 5.0 07/15 [place] CHEM PANEL CO2 27 24 - 32 07/15 [facility] CHEM PANEL Total 6.8 6.4 - 8.4 07/15 Protein [facility] CHEM PANEL Calcium Lvl 8.7 8.5 - 10.5 07/15 [facility] CHEM PANEL Globulin 3.3 2.0 - 4.0 07/15 [facility] CHEM PANEL A/G Ratio 1.1 0.7 - 1.6 07/15 [facility] CHEM PANEL Creatinine 0.80 0.50 - 07/15 MH Lvl 1.40 /2014 [facility] CHEM PANEL Chloride Lvl 104 95 - 109 07/15 /2014 [facility] CHEM PANEL Sodium Lvl 138 135 - 145 07/15 [facility] CHEM PANEL Potassium 4.1 3.5 - 5.1 07/15 MH Lvl /2014 [facility] CHEM PANEL BUN 10 7 - 22 07/15 /2014 [facility] CHEM PANEL Glucose Lvl 72 70 - 99 07/15 /2014 [facility] HEMATOLOGY Segs-Bands # 3.3 1.5 - 8.1 07/15 /2014 [facility] HEMATOLOGY Eosinophils 0.2 0.0 - 0.5 07/15 MH # /2014 [facility] HEMATOLOGY Monocytes # 0.6 0.0 - 0.8 07/15 /2014 [facility] HEMATOLOGY Lymphocytes 2.3 1.0 - 5.5 07/15 MH # /2014 [facility] HEMATOLOGY Segs 51.8 45.0 - 07/15 MH 75.0 /2014 [facility] HEMATOLOGY Basophils 0.6 0.0 - 1.0 07/15 [facility] HEMATOLOGY Eosinophils 3.1 0.0 - 4.0 07/15 /2014 [facility] HEMATOLOGY Monocytes 9.4 2.0 - 12.0 07/15 /2014 [facility] HEMATOLOGY Lymphocytes 35.1 20.0 - 07/15 40.0 /2014 [facility] HEMATOLOGY Basophils # 0.0 0.0 - 0.2 07/15 /2014 [facility] HEMATOLOGY MPV 9.1 7.4 - 10.4 07/15 /2014 [facility] HEMATOLOGY MCV 87.6 80.0 - 07/15 98.0 /2014 [facility] HEMATOLOGY Hgb 12.9 12.0 - 07/15 16.0 /2014 [facility] HEMATOLOGY Hct 39.8 36.0 - 07/15 48.0 /2014 [facility] HEMATOLOGY MCHC 32.3 32.0 - 07/15 36.0 /2014 [facility] HEMATOLOGY RDW 14.8 11.5 - 07/15 14.5 /2014 [facility] HEMATOLOGY MCH 28.3 27.0 - 07/15 31.0 /2014 [facility] HEMATOLOGY Platelet 171 133 - 450 07/15 [facility] HEMATOLOGY RBC 4.54 4.20 - 07/15 5.40 /2014 [facility] HEMATOLOGY WBC 6.4 3.7 - 10.4 07/15 [facility] IMMUNOLOGY [facility] HIV 4th Negative Negative 05/18 [facility] s GEN (05/18/15 2:18 PM) [facility] CARDIAC Troponin-I <0.02 0.00 - 05/18 [facility] ENZYMES 0.40 [facility] CHEM PANEL Bili Direct 0.1 0.0 - 0.3 05/18 [facility] s /2014 [facility] CHEM PANEL Globulin 3.9 2.0 - 4.0 05/18 [facility] CHEM PANEL Alk Phos 105 39 - 136 05/18 [place] [facility] CHEM PANEL Bili Total 0.5 0.2 - 1.3 05/18 [place] [facility] CHEM PANEL AST 22 0 - 37 05/18 [place] [facility] CHEM PANEL ALT 18 0 - 65 05/18 [facility] /2014 [facility] CHEM PANEL Total 7.9 6.4 - 8.4 05/18 [facility] Protein [facility] CHEM PANEL Albumin Lvl 4.0 3.5 - 5.0 05/18 [facility] CHEM PANEL Bili 0.4 0.0 - 1.0 05/18 [facility] Indirect [facility] CHEM PANEL A/G Ratio 1.0 0.7 - 1.6 05/18 [facility] CHEM PANEL Lipase Lvl 266 73 - 393 05/18 [facility] CHEM PANEL eGFR 78 05/18 [facility] Comment: The Medical eGFR is Center calculated using the CKD-EPI formula. In most young, healthy individuals the eGFR will be >90 mL/min/1.73m2 . The eGFR declines with age. An eGFR of 60-89 may be normal in some populations, particularly the elderly, for whom the CKD-EPI formula has not been extensively validated. Use of the eGFR is not recommended in the following populations:< br/>
Brittani viduals with unstable creatinine concentration s, including patients and those with serious co-morbid conditions.<b r/>
Patie nts with extremes in muscle mass or diet.

The data above are obtained from the National Kidney Disease Education Program (NKDEP) which additionally recommends that when the eGFR is used in patients with extremes of body mass index for purposes of drug dosing, the eGFR should be multiplied by the estimated BMI. CHEM PANEL Sodium Lvl 138 135 - 145 05/18 [facility] CHEM PANEL Potassium 3.9 3.5 - 5.1 05/18 [facility] CHEM PANEL Creatinine 0.9 0.5 - 1.4 05/18 [facility] CHEM PANEL Glucose Lvl 87 70 - 99 05/18 [facility] CHEM PANEL BUN 7 7 - 22 05/18 [facility] CHEM PANEL Chloride Lvl 103 95 - 109 05/18 [facility] [place] CHEM PANEL CO2 28 24 - 32 05/18 [facility] CHEM PANEL Calcium Lvl 10.2 8.5 - 10.5 05/18 [facility] CHEM PANEL AGAP 10.9 10.0 - 05/18 20.0 [facility] HEMATOLOGY Hgb 14.2 12.0 - 05/18 [place] 16.0 [facility] HEMATOLOGY RBC 4.96 4.20 - 05/18 [place] 5.40 /2014 [facility] [place] HEMATOLOGY MCH 28.7 27.0 - 05/18 [place] 31.0 [facility] [place] HEMATOLOGY MCHC 32.9 32.0 - 05/18 [place] 36.0 [facility] [place] HEMATOLOGY Hct 43.3 36.0 - 05/18 48.0 [facility] HEMATOLOGY MCV 87.2 80.0 - 05/18 [place] 98.0 [facility] HEMATOLOGY WBC 6.8 3.7 - 10.4 05/18 [facility] HEMATOLOGY Platelet 215 133 - 450 05/18 [facility] HEMATOLOGY MPV 8.2 7.4 - 10.4 05/18 [facility] HEMATOLOGY RDW 14.5 11.5 - 05/18 [place] 14.5 [facility] HEMATOLOGY Segs 55.6 45.0 - 05/18 [place] 75.0 /2014 [facility] HEMATOLOGY Lymphocytes 32.7 20.0 - 05/18 [place] 40.0 [facility] HEMATOLOGY Monocytes 8.5 2.0 - 12.0 05/18 [facility] HEMATOLOGY Segs-Bands # 3.8 1.5 - 8.1 05/18 [facility] [place] HEMATOLOGY Basophils 0.6 0.0 - 1.0 05/18 [facility] HEMATOLOGY Lymphocytes 2.2 1.0 - 5.5 09/20 [place] # /2014 [facility] HEMATOLOGY Eosinophils 2.6 0.0 - 4.0 05/18 [place] /2014 [facility] HEMATOLOGY Eosinophils 0.2 0.0 - 0.5 05/18 [place] # /2014 [facility] HEMATOLOGY Monocytes # 0.6 0.0 - 0.8 05/18 [place] /2014 [facility] IMMUNOLOGY [place]-Hep C Positive Negative 05/18 [facility] as Ab *NA* /2014 [facility] (05/18/15 1:26 PM) Center IMMUNOLOGY [place] HCV [id number] 05/18 [facility] RNA Virload /2014 [facility] IMMUNOLOGY [place] HCV 5.5 05/18 [facility] RNA Log10 [facility] CARDIAC Troponin-I <0.02 0.00 - 05/09 [facility] ENZYMES 0.40 [facility] CHEM PANEL eGFR 90 05/09 Result Comment: [facility] eGFR is Center calculated using the CKD-EPI formula. In most young, healthy individuals the eGFR will be >90 mL/min/1.73m2 . The eGFR declines with age. An eGFR of 60-89 may be normal in some populations, particularly the elderly, for whom the CKD-EPI formula has not been extensively validated. Use of the eGFR is not recommended in the following populations:< br/>
Brittani viduals with unstable creatinine concentration s, including patients and those with serious co-morbid conditions.<b r/>
Patie nts with extremes in muscle mass or diet.

The data above are obtained from the National Kidney Disease Education Program (NKDEP) which additionally recommends that when the eGFR is used in patients with extremes of body mass index for purposes of drug dosing, the eGFR should be multiplied by the estimated BMI. CHEM PANEL CO2 28 24 - 32 05/09 [facility] CHEM PANEL Calcium Lvl 9.6 8.5 - 10.5 05/09 [place] [facility] CHEM PANEL Chloride Lvl 105 95 - 109 05/09 [facility] CHEM PANEL Creatinine 0.8 0.5 - 1.4 05/09 [facility] Lvl /2014 [facility] CHEM PANEL Sodium Lvl 139 135 - 145 05/09 [facility] CHEM PANEL Potassium 3.7 3.5 - 5.1 05/09 [facility] Lvl /2014 [facility] CHEM PANEL Glucose Lvl 102 70 - 99 05/09 [facility] CHEM PANEL BUN 7 7 - 22 05/09 [facility] CHEM PANEL AGAP 9.7 10.0 - 05/09 [place] 20.0 /2014 [facility] HEMATOLOGY RDW 14.4 11.5 - 09 [place] 14.5 /2014 [facility] HEMATOLOGY MCHC 32.5 32.0 - 09 [place] 36.0 /2014 [facility] HEMATOLOGY MCH 28.7 27.0 - 09 [place] 31.0 /2014 [facility] HEMATOLOGY Platelet 202 133 - 450 09 [facility] HEMATOLOGY MPV 7.6 7.4 - 10.4 05/09 [facility] HEMATOLOGY MCV 88.2 80.0 - 05/09 [place] 98.0 /2014 [facility] HEMATOLOGY Hct 41.9 36.0 - 05/09 [place] 48.0 /2014 [facility] HEMATOLOGY RBC 4.75 4.20 - 05/09 [place] 5.40 /2014 [facility] HEMATOLOGY Hgb 13.6 12.0 - 05/09 [place] 16.0 /2014 [facility] HEMATOLOGY WBC 5.6 3.7 - 10.4 05/09 [facility] HEMATOLOGY Lymphocytes 2.1 1.0 - 5.5 05/09 [place] # /2014 [facility] HEMATOLOGY Basophils # 0.1 0.0 - 0.2 05/09 s [facility] HEMATOLOGY Eosinophils 0.2 0.0 - 0.5 05/09 [place] # /2014 [facility] HEMATOLOGY Monocytes # 0.4 0.0 - 0.8 05/09 s [facility] HEMATOLOGY Segs 50.8 45.0 - 05/09 [place] 75.0 /2014 [facility] HEMATOLOGY Eosinophils 2.8 0.0 - 4.0 05/09 s [facility] HEMATOLOGY Segs-Bands # 2.9 1.5 - 8.1 05/09 [facility] HEMATOLOGY Basophils 1.1 0.0 - 1.0 05/09 [facility] HEMATOLOGY Monocytes 7.7 2.0 - 12.0 05/09 [facility] HEMATOLOGY Lymphocytes 37.6 20.0 - 05/09 [facility] 40.0 [facility] CARDIAC Troponin-I <0.02 0.00 - 05/02 [facility] ENZYMES 0. [facility] CHEM PANEL Phosphorus 3.2 2.5 - 4.5 05/02 [facility] CHEM PANEL Magnesium 2.1 1.8 - 2.4 05/02 [facility] ELECTROLYT AGAP 12.4 10.0 - 05/02 [facility] ES 20.0 [facility] ELECTROLYT eGFR 68 05/02 Result [facility] Comment: [facility] eGFR is Center calculated using the CKD-EPI formula. In most young, healthy individuals the eGFR will be >90 mL/min/1.73m2 . The eGFR declines with age. An eGFR of 60-89 may be normal in some populations, particularly the elderly, for whom the CKD-EPI formula has not been extensively validated. Use of the eGFR is not recommended in the following populations:< br/>
Brittani viduals with unstable creatinine concentration s, including patients and those with serious co-morbid conditions.<b r/>
Patie nts with extremes in muscle mass or diet.

The data above are obtained from the National Kidney Disease Education Program (NKDEP) which additionally recommends that when the eGFR is used in patients with extremes of body mass index for purposes of drug dosing, the eGFR should be multiplied by the estimated BMI. ELECTROLYT Chloride Lvl 104 95 - 109 05/02 [facility] ELECTROLYT Sodium Lvl 141 135 - 145 05/02 [facility] ELECTROLYT CO2 28 24 - 32 05/02 [facility] ELECTROLYT Calcium Lvl 8.8 8.5 - 10.5 05/02 [place] [facility] ELECTROLYT Potassium 3.4 3.5 - 5.1 05/02 [facility] ELECTROLYT Creatinine 0.9 0.5 - 1.4 05/02 [facility] ELECTROLYT Glucose Lvl 92 70 - 99 05/02 [facility] ELECTROLYT BUN 6 7 - 22 05/02 [facility] HEMATOLOGY MPV 8.0 7.4 - 10.4 05/02 [facility] HEMATOLOGY RDW 14.1 11.5 - 05/02 [place] 14.5 /2014 [facility] HEMATOLOGY Platelet 212 133 - 450 09 [facility] HEMATOLOGY MCHC 32.6 32.0 - 05/02 [place] 36.0 /2014 [facility] HEMATOLOGY WBC 8.0 3.7 - 10.4 05/02 [facility] HEMATOLOGY Hct 40.2 36.0 - 05/02 [place] 48.0 /2014 [facility] HEMATOLOGY MCV 87.4 80.0 - 05/02 [place] 98.0 /2014 [facility] HEMATOLOGY Hgb 13.1 12.0 - 05/02 [place] 16.0 /2014 [facility] HEMATOLOGY RBC 4.60 4.20 - 05/02 [place] 5.40 /2014 [facility] HEMATOLOGY MCH 28.5 27.0 - 05/02 [place] 31.0 /2014 [facility] HEMATOLOGY Lymphocytes 26.3 20.0 - 05/02 [place] 40.0 /2014 [facility] HEMATOLOGY Segs 60.9 45.0 - 05/02 [place] 75.0 /2014 [facility] HEMATOLOGY Basophils 1.0 0.0 - 1.0 05/02 [facility] HEMATOLOGY Eosinophils 3.0 0.0 - 4.0 05/02 s /2014 [facility] HEMATOLOGY Monocytes 8.8 2.0 - 12.0 05/02 [facility] HEMATOLOGY Monocytes # 0.7 0.0 - 0.8 05/02 s /2014 [facility] HEMATOLOGY Eosinophils 0.2 0.0 - 0.5 05/02 [place] # /2014 [facility] HEMATOLOGY Lymphocytes 2.1 1.0 - 5.5 05/02 [place] # /2014 [facility] HEMATOLOGY Segs-Bands # 4.9 1.5 - 8.1 05/02 [place] /2014 [facility] HEMATOLOGY Basophils # 0.1 0.0 - 0.2 05/02 a s [facility] URINE AND UA Nitrite Negative Negative 05/02 [facility] STOOL (05/02/15 4:38 PM) /2014 [facility] URINE AND UA WBC 0-2 /HPF None Seen 05/02 [facility] STOOL /HPF /2014 [facility] URINE AND UA Leuk Est Moderate Negative 05/02 [facility] STOOL *ABN* /2014 [facility] (05/02/15 4:38 PM) [place] URINE AND UA RBC None Seen 0 - 2 05/02 [facility] (05/02/15 4:38 PM) /2014 [facility] URINE AND UA Sq Epi Occasional Few /LPF 05/02 [facility] [facility] ST[facility]OL /LPF [facility] URINE AND UA Bacteria None Seen None Seen 05/02 [place] [facility] (05/02/15 4:38 PM) [facility] URINE AND UA Mucus Rare /LPF None Seen 05/02 [facility] STOOL /LPF /2014 [facility] URINE AND UA Glucose Negative Negative 05/02 [facility] (05/02/15 4:38 PM) /2014 [facility] URINE AND UA Ketones Negative Negative 05/02 [facility] *NA* /2014 [facility] (05/02/15 4:38 PM) [place] URINE AND UA 0.2 0.1 - 1.0 05/02 [facility] Urobilinogen /2014 [facility] URINE AND UA Blood Negative Negative 05/02 [facility] (05/02/15 4:38 PM) /2014 [facility] URINE AND UA Bili Negative Negative 05/02 [facility] *NA* /2014 [facility] (05/02/15 4:38 PM) [place] URINE AND UA Color Yellow Yellow 05/02 [facility] *NA* /2014 [facility] (05/02/15 4:38 PM) [place] URINE AND UA pH 6.0 5.0 - 8.0 05/02 [facility] URINE AND UA Turbidity Slight Cloudy Clear 05/02 [facility] (05/02/15 4:38 PM) [facility] URINE AND UA Protein Negative Negative 05/02 [facility] (05/02/15 4:38 PM) [facility] URINE AND UA Spec Grav 1.006 <=1.030 05/02 [facility] CHEM PANEL Lipase Lvl 188 73 - 393 03/24 [facility] CHEM PANEL eGFR 106 03/24 Result Comment: The [facility] eGFR is calculated using the CKD-EPI formula. In most young, healthy individuals the eGFR will be >90 mL/min/1.73m2 . The eGFR declines with age. An eGFR of 60-89 may be normal in some populations, particularly the elderly, for whom the CKD-EPI formula has not been extensively validated. Use of the eGFR is not recommended in the following populations:< br/>
Brittani viduals with unstable creatinine concentration s, including patients and those with serious co-morbid conditions.<b r/>
Patie nts with extremes in muscle mass or diet.

The data above are obtained from the National Kidney Disease Education Program (NKDEP) which additionally recommends that when the eGFR is used in patients with extremes of body mass index for purposes of drug dosing, the eGFR should be multiplied by the estimated BMI. CHEM PANEL Creatinine 0.7 0.5 - 1.4 03/24 [facility] CHEM PANEL BUN 4 7 - 22 03/24 [facility] CHEM PANEL Potassium 3.2 3.5 - 5.1 03/24 [facility] [place] CHEM PANEL Sodium Lvl 142 135 - 145 03/24 [facility] CHEM PANEL Glucose Lvl 91 70 - 99 03/24 [facility] CHEM PANEL Albumin Lvl 3.5 3.5 - 5.0 03/24 [facility] CHEM PANEL Total 6.6 6.4 - 8.4 03/24 [facility] CHEM PANEL Chloride Lvl 107 95 - 109 03/24 [facility] CHEM PANEL Calcium Lvl 9.1 8.5 - 10.5 03/24 [place] CHEM PANEL CO2 27 24 - 32 03/24 [place] CHEM PANEL AGAP 11.2 10.0 - 03/24 MH 20.0 [facility] CHEM PANEL AST 21 0 - 37 03/24 [facility] CHEM PANEL ALT 34 0 - 65 03/24 [facility] CHEM PANEL Bili Total 0.6 0.2 - 1.3 03/24 [facility] CHEM PANEL Alk Phos 95 39 - 136 03/24 [facility] CHEM PANEL B/C Ratio 6 6 - 25 03/24 [facility] CHEM PANEL A/G Ratio 1.1 0.7 - 1.6 03/24 [facility] CHEM PANEL Globulin 3.1 2.0 - 4.0 03/24 [facility] HEMATOLOGY Monocytes 11.3 2.0 - 12.0 03/24 [facility] HEMATOLOGY Lymphocytes 27.1 20.0 - 07 MH 40.0 /2014 [facility] HEMATOLOGY Eosinophils 5.9 0.0 - 4.0 03/24 [facility] HEMATOLOGY Segs-Bands # 3.3 1.5 - 8.1 03/24 /2014 [facility] HEMATOLOGY Basophils 0.7 0.0 - 1.0 03/24 /2014 [facility] HEMATOLOGY Segs 55.0 45.0 - 03/24 MH 75.0 /2014 [facility] HEMATOLOGY Monocytes # 0.7 0.0 - 0.8 03/24 /2014 [facility] HEMATOLOGY Lymphocytes 1.6 1.0 - 5.5 03/24 MH # /2014 [facility] HEMATOLOGY Eosinophils 0.4 0.0 - 0.5 03/24 MH # /2014 [facility] HEMATOLOGY RBC 4.21 4.20 - 03/24 MH 5.40 /2014 [facility] HEMATOLOGY WBC 5.9 3.7 - 10.4 03/24 /2014 [facility] HEMATOLOGY Platelet 204 133 - 450 03/24 /2014 [facility] HEMATOLOGY MCHC 32.4 32.0 - 03/24 36.0 /2014 [facility] HEMATOLOGY RDW 14.2 11.5 - 03/24 14.[address] [facility] MPV 8.6 7.4 - 10.4 03/24 /[address] [facility] Hct 37.2 36.0 - 03/24 MH 48.0 /2014 [facility] HEMATOLOGY MCV 88.3 80.0 - 03/24 98.0 /2014 [facility] HEMATOLOGY Hgb 12.1 12.0 - 03/24 MH 16.[address] [facility] MCH 28.6 27.0 - 03/24 31.0 /2014 [facility] URINE AND Occult Bld Negative Negative 03/23 [facility] (03/23/15 1:14 PM) /2014 [facility] est CARDIAC CK MB 0.8 0.5 - 3.6 03/23 ENZYMES /2014 [facility] CARDIAC Total CK 70 12 - 191 03/23 ENZYMES /2014 [facility] CARDIAC CK MB Index 1.1 0.0 - 2.5 03/23 ENZYMES [facility] CHEM PANEL eGFR 106 03/23 Result Comment: The [facility] eGFR is calculated using the CKD-EPI formula. In most young, healthy individuals the eGFR will be >90 mL/min/1.73m2 . The eGFR declines with age. An eGFR of 60-89 may be normal in some populations, particularly the elderly, for whom the CKD-EPI formula has not been extensively validated. Use of the eGFR is not recommended in the following populations:< br/>
Brittani viduals with unstable creatinine concentration s, including patients and those with serious co-morbid conditions.<b r/>
Patie nts with extremes in muscle mass or diet.

The data above are obtained from the National Kidney Disease Education Program (NKDEP) which additionally recommends that when the eGFR is used in patients with extremes of body mass index for purposes of drug dosing, the eGFR should be multiplied by the estimated BMI. CHEM PANEL CO2 27 24 - 32 03/23 [facility] CHEM PANEL Calcium Lvl 9.2 8.5 - 10.5 03/23 [facility] CHEM PANEL Chloride Lvl 108 95 - 109 03/23 [facility] CHEM PANEL Sodium Lvl 142 135 - 145 03/23 [facility] CHEM PANEL Potassium 3.5 3.5 - 5.1 03/23 Lvl /2014 [facility] CHEM PANEL Creatinine 0.7 0.5 - 1.4 03/23 Lvl /2014 [facility] CHEM PANEL BUN 8 7 - 22 03/23 [facility] CHEM PANEL Glucose Lvl 101 70 - 99 03/23 [facility] CHEM PANEL AGAP 10.5 10.0 - 03/23 MH 20.0 [facility] HEMATOLOGY Lymphocytes 1.3 1.0 - 5.5 03/23 MH # /2014 [facility] HEMATOLOGY Segs-Bands # 3.4 1.5 - 8.1 03/23 [facility] HEMATOLOGY Basophils 0.6 0.0 - 1.0 03/23 [facility] HEMATOLOGY Eosinophils 4.0 0.0 - 4.0 03/23 [facility] HEMATOLOGY Eosinophils 0.2 0.0 - 0.5 03/23 # /2014 [facility] HEMATOLOGY Monocytes # 0.6 0.0 - 0.8 03/23 [facility] HEMATOLOGY Monocytes 11.0 2.0 - 12.0 03/23 [facility] HEMATOLOGY Lymphocytes 23.6 20.0 - 03/23 MH 40.0 /2014 [facility] HEMATOLOGY Segs 60.8 45.0 - 03/23 MH 75.0 [facility] HEMATOLOGY MPV 8.3 7.4 - 10.4 03/23 [facility] HEMATOLOGY Platelet 196 133 - 450 03/23 [facility] HEMATOLOGY RDW 14.6 11.5 - 03/23 MH 14.5 [facility] HEMATOLOGY MCV 88.0 80.0 - 03/23 MH 98.0 /2014 [facility] HEMATOLOGY MCH 28.7 27.0 - 03/23 MH 31.0 /2014 [facility] HEMATOLOGY Hct 34.7 36.0 - 03/23 MH 48.0 /2014 [facility] HEMATOLOGY MCHC 32.6 32.0 - 03/23 MH 36.0 /2014 [facility] HEMATOLOGY Hgb 11.3 12.0 - 03/23 MH 16.0 /2014 [facility] HEMATOLOGY RBC 3.94 4.20 - 03/23 MH 5.40 /2014 [facility] HEMATOLOGY WBC 5.6 3.7 - 10.4 03/23 [facility] CARDIAC CK MB Index 1.6 0.0 - 2.5 03/22 ENZYMES [facility] CARDIAC CK MB 1.0 0.5 - 3.6 03/22 ENZYMES [facility] CARDIAC Total CK 64 12 - 191 03/22 ENZYMES [facility] CHEM PANEL eGFR 111 03/22 Result Comment: The [facility] eGFR is calculated using the CKD-EPI formula. In most young, healthy individuals the eGFR will be >90 mL/min/1.73m2 . The eGFR declines with age. An eGFR of 60-89 may be normal in some populations, particularly the elderly, for whom the CKD-EPI formula has not been extensively validated. Use of the eGFR is not recommended in the following populations:< br/>
Brittani viduals with unstable creatinine concentration s, including patients and those with serious co-morbid conditions.<b r/>
Patie nts with extremes in muscle mass or diet.

The data above are obtained from the National Kidney Disease Education Program (NKDEP) which additionally recommends that when the eGFR is used in patients with extremes of body mass index for purposes of drug dosing, the eGFR should be multiplied by the estimated BMI. CHEM PANEL Calcium Lvl 8.7 8.5 - 10.5 03/22 [facility] CHEM PANEL Sodium Lvl 144 135 - 145 03/22 [facility] CHEM PANEL Potassium 3.9 3.5 - 5.1 03/22 MH Lvl [facility] CHEM PANEL Chloride Lvl 112 95 - 109 03/22 [facility] CHEM PANEL CO2 27 24 - 32 03/22 [facility] CHEM PANEL Glucose Lvl 94 70 - 99 03/22 [facility] CHEM PANEL BUN 8 7 - 22 03/22 [facility] CHEM PANEL Creatinine 0.6 0.5 - 1.4 03/22 Lvl /2014 [facility] CHEM PANEL AGAP 8.9 10.0 - 03/22 MH 20.0 /2014 [facility] HEMATOLOGY Eosinophils 0.2 0.0 - 0.5 03/22 MH # /2015 [facility] HEMATOLOGY Monocytes # 0.5 0.0 - 0.8 03/22 /2014 [facility] HEMATOLOGY Basophils 0.9 0.0 - 1.0 03/22 /2014 [facility] HEMATOLOGY Monocytes 11.2 2.0 - 12.0 03/22 /2014 [facility] HEMATOLOGY Segs-Bands # 2.1 1.5 - 8.1 03/22 MH /2014 [facility] HEMATOLOGY Eosinophils 3.7 0.0 - 4.0 03/22 [facility] HEMATOLOGY Lymphocytes 1.6 1.0 - 5.5 03/22 MH # /2014 [facility] HEMATOLOGY Segs 48.6 45.0 - 03/22 MH 75.0 /2014 [facility] HEMATOLOGY Lymphocytes 35.6 20.0 - 03/22 MH 40.0 /2014 [facility] HEMATOLOGY MPV 8.9 7.4 - 10.4 03/22 /2014 [facility] HEMATOLOGY WBC 4.4 3.7 - 10.4 03/22 MH /2014 [facility] HEMATOLOGY MCH 29.9 27.0 - 03/22 MH 31.0 /2014 [facility] HEMATOLOGY MCV 86.5 80.0 - 03/22 MH 98.0 /2014 [facility] HEMATOLOGY MCHC 34.6 32.0 - 03/22 MH 36.0 /2014 [facility] HEMATOLOGY Hgb 11.7 12.0 - 03/22 MH 16.0 /2014 [facility] HEMATOLOGY RBC 3.92 4.20 - 03/22 MH 5.40 /2014 [facility] HEMATOLOGY Hct 33.9 36.0 - 03/22 MH 48.0 /2014 [facility] HEMATOLOGY RDW 14.6 11.5 - 03/22 MH 14.5 /2014 [facility] HEMATOLOGY Platelet 176 133 - 450 03/22 [facility] CARDIAC CK MB Index 1.6 0.0 - 2.5 03/22 ENZYMES /2014 [facility] CARDIAC Total CK 77 12 - 191 03/22 ENZYMES /2014 [facility] CARDIAC CK MB 1.2 0.5 - 3.6 03/22 ENZYMES /2014 [facility] CHEM PANEL Lactic Acid 1.4 0.5 - 2.2 03/22 Lvl /2014 [facility] CARDIAC Troponin-I <0.02 0.00 - 03/21 MH ENZYMES 0.40 /2014 [facility] CHEM PANEL Globulin 3.3 2.0 - 4.0 03/21 MH /2014 [facility] CHEM PANEL A/G Ratio 1.1 0.7 - 1.6 03/21 /2014 [facility] CHEM PANEL B/C Ratio 16 6 - 25 03/21 [facility] CHEM PANEL Alk Phos 105 39 - 136 03/21 MH /2014 [facility] CHEM PANEL AST 25 0 - 37 03/21 [facility] CHEM PANEL Bili Total 0.5 0.2 - 1.3 03/21 [facility] CHEM PANEL ALT 32 0 - 65 03/21 [facility] CHEM PANEL Albumin Lvl 3.7 3.5 - 5.0 03/21 [facility] CHEM PANEL Total 7.0 6.4 - 8.4 03/21 MH Protein /2014 [facility] HEMATOLOGY Basophils # 0.0 0.0 - 0.2 03/21 [facility] HEMATOLOGY INR 1.04 0.85 - 03/21 MH 1.17 /2014 [facility] HEMATOLOGY PT 13.6 12.0 - 03/21 MH 14.7 /2014 [facility] HEMATOLOGY PTT 35.2 22.9 - 03/21 MH 35.8 /2014 [facility] CARDIAC BNP 6 <=100 03/21 MH ENZYMES pg/mL /2014 [facility] CARDIAC Troponin-I <0.02 0.00 - 03/11 MH ENZYMES 0.40 /2014 [facility] CARDIAC BNP 31 <=100 03/11 MH ENZYMES pg/mL /2014 [facility] CARDIAC CK MB 0.8 0.5 - 3.6 03/11 MH ENZYMES /2014 [facility] CARDIAC Total CK 70 12 - 191 03/11 MH ENZYMES /2014 [facility] CARDIAC CK MB Index 1.1 0.0 - 2.5 03/11 MH ENZYMES /2014 [facility] CHEM PANEL eGFR 106 03/11 Result Comment: The [facility] eGFR is calculated using the CKD-EPI formula. In most young, healthy individuals the eGFR will be >90 mL/min/1.73m2 . The eGFR declines with age. An eGFR of 60-89 may be normal in some populations, particularly the elderly, for whom the CKD-EPI formula has not been extensively validated. Use of the eGFR is not recommended in the following populations:< br/>
Brittani viduals with unstable creatinine concentration s, including patients and those with serious co-morbid conditions.<b r/>
Patie nts with extremes in muscle mass or diet.

The data above are obtained from the National Kidney Disease Education Program (NKDEP) which additionally recommends that when the eGFR is used in patients with extremes of body mass index for purposes of drug dosing, the eGFR should be multiplied by the estimated BMI. CHEM PANEL Alk Phos 99 39 - 136 03/11 [facility] CHEM PANEL Bili Total 0.6 0.2 - 1.3 03/11 [facility] CHEM PANEL B/C Ratio 11 6 - 25 03/11 [facility] CHEM PANEL AGAP 9.4 10.0 - 03/11 MH 20.0 [facility] CHEM PANEL Globulin 3.1 2.0 - 4.0 03/11 [facility] CHEM PANEL A/G Ratio 1.1 0.7 - 1.6 03/11 [facility] CHEM PANEL Glucose Lvl 73 70 - 99 03/11 [facility] CHEM PANEL BUN 8 7 - 22 03/11 [facility] CHEM PANEL Creatinine 0.7 0.5 - 1.4 03/11 [facility] CHEM PANEL Sodium Lvl 143 135 - 145 03/11 [facility] CHEM PANEL Potassium 3.4 3.5 - 5.1 03/11 [place] CHEM PANEL CO2 28 24 - 32 03/11 [facility] CHEM PANEL Chloride Lvl 109 95 - 109 03/11 [facility] CHEM PANEL Calcium Lvl 8.9 8.5 - 10.5 03/11 [facility] CHEM PANEL Total 6.5 6.4 - 8.4 03/11 [facility] CHEM PANEL Albumin Lvl 3.4 3.5 - 5.0 03/11 [facility] CHEM PANEL ALT 30 0 - 65 03/11 [facility] CHEM PANEL AST 21 0 - 37 03/11 [facility] HEMATOLOGY RDW 15.1 11.5 - 03/11 MH 14. [facility] HEMATOLOGY MCHC 33.1 32.0 - 03/11 MH 36.0 [facility] HEMATOLOGY Platelet 190 133 - 450 03/11 [facility] HEMATOLOGY MPV 8.1 7.4 - 10.4 03/11 [facility] HEMATOLOGY Hct 34.6 36.0 - 03/11 MH 48.0 /2014 [facility] HEMATOLOGY Hgb 11.5 12.0 - 03/11 MH 16.0 /2014 [facility] HEMATOLOGY MCH 28.8 27.0 - 03/11 MH 31.0 /2014 [facility] HEMATOLOGY MCV 86.9 80.0 - 03/11 MH 98.0 /2014 [facility] HEMATOLOGY RBC 3.98 4.20 - 03/11 MH 5.40 /2014 [facility] HEMATOLOGY WBC 6.5 3.7 - 10.4 07/ /2014 [facility] HEMATOLOGY PTT 32.8 22.9 - 03/11 MH 35.8 /2014 [facility] HEMATOLOGY PT 13.3 12.0 - 03/11 MH 14.7 /2014 [facility] HEMATOLOGY INR 1.01 0.85 - 03/11 MH 1.17 /2014 [facility] HEMATOLOGY Basophils # 0.0 0.0 - 0.2 03/11 /2014 [facility] HEMATOLOGY Segs-Bands # 3.7 1.5 - 8.1 03/11 /2014 [facility] HEMATOLOGY Eosinophils 0.2 0.0 - 0.5 03/11 # /2014 [facility] HEMATOLOGY Monocytes # 0.6 0.0 - 0.8 03/11 /2014 [facility] HEMATOLOGY Lymphocytes 1.9 1.0 - 5.5 03/11 MH # /2014 [facility] HEMATOLOGY Segs 56.9 45.0 - 03/11 MH 75.0 /2014 [facility] HEMATOLOGY Eosinophils 2.7 0.0 - 4.0 03/11 /2014 [facility] HEMATOLOGY Basophils 0.4 0.0 - 1.0 03/11 /2014 [facility] HEMATOLOGY Monocytes 9.9 2.0 - 12.0 03/11 /2014 [facility] HEMATOLOGY Lymphocytes 30.1 20.0 - 03/11 40.0 /2014 [facility] CARDIAC Troponin-I <0.02 0.00 - 07/08 [place] ENZYMES 0.40 /2014 [facility] CARDIAC Troponin-I <0.02 0.00 - 07/08 [place] ENZYMES 0.40 /2014 [facility] CHEM PANEL A/G Ratio 1.1 0.7 - 1.6 07/ /2014 [facility] CHEM PANEL Globulin 3.5 2.0 - 4.0 07/08 /2014 [facility] CHEM PANEL Bili 0.5 0.0 - 1.0 07/08 [place] Indirect /2014 [facility] CHEM PANEL Bili Direct 0.1 0.0 - 0.3 07/ [facility] CHEM PANEL ALT 25 0 - 65 03/05 [facility] CHEM PANEL AST 21 0 - 37 03/05 [facility] CHEM PANEL Albumin Lvl 3.7 3.5 - 5.0 03/05 [facility] CHEM PANEL Alk Phos 119 39 - 136 03/05 [facility] CHEM PANEL Bili Total 0.6 0.2 - 1.3 03/05 [facility] CHEM PANEL Total 7.2 6.4 - 8.4 03/05 [facility] Protein [facility] CHEM PANEL Lipase Lvl 221 73 - 393 03/05 [facility] ELECTROLYT AGAP 12.6 10.0 - 07 [facility] ES 20.0 /2014 [facility] ELECTROLYT eGFR 78 03/05 <sup>1</sup>[facility] Medical Comment: The Center eGFR is calculated using the CKD-EPI formula. In most young, healthy individuals the eGFR will be >90 mL/min/1.73m2 . The eGFR declines with age. An eGFR of 60-89 may be normal in some populations, particularly the elderly, for whom the CKD-EPI formula has not been extensively validated. Use of the eGFR is not recommended in the following populations:& lt;br/>
I ndividuals with unstable creatinine concentration s, including patients and those with serious co-morbid conditions.<b r/>
Patie nts with extremes in muscle mass or diet.

The data above are obtained from the National Kidney Disease Education Program (NKDEP) which additionally recommends that when the eGFR is used in patients with extremes of body mass index for purposes of drug dosing, the eGFR should be multiplied by the estimated BMI. ELECTROLYT Calcium Lvl 9.6 8.5 - 10.5 03/05 [facility] ELECTROLYT CO2 29 24 - 32 03/05 [facility] ELECTROLYT Potassium 3.6 3.5 - 5.1 03/05 [facility] ELECTROLYT Chloride Lvl 103 95 - 109 03/05 [facility] s [facility] ELECTROLYT Sodium Lvl 141 135 - 145 03/05 [facility] ELECTROLYT Creatinine 0.8 0.5 - 1.4 07 [facility] ES Lvl /2014 [facility] ELECTROLYT BUN 9 7 - 22 03/05 [facility] ELECTROLYT Glucose Lvl 96 70 - 99 03/05 <sup>2</sup>I [facility] nterpretive Medical Data: Adult Center reference range values reflect the clinical guidelines
of the [place]. HEMATOLOGY Lymphocytes 2.6 1.0 - 5.5 03/05 [place] /2014 [facility] HEMATOLOGY Monocytes # 0.9 0.0 - 0.8 03/05 [facility] HEMATOLOGY Basophils 0.7 0.0 - 1.0 / [facility] HEMATOLOGY Eosinophils 1.7 0.0 - 4.0 03/05 [facility] HEMATOLOGY Segs-Bands # 6.7 1.5 - 8.1 03/05 [facility] HEMATOLOGY Lymphocytes 25.0 20.0 - 0708 [place] 40.0 [facility] HEMATOLOGY Segs 64.3 45.0 - 0708 [place] 75.0 [facility] HEMATOLOGY Monocytes 8.3 2.0 - 12.0 03/05 [facility] HEMATOLOGY Eosinophils 0.2 0.0 - 0.5 03/05 s # [facility] HEMATOLOGY Basophils # 0.1 0.0 - 0.2 03/05 [facility] HEMATOLOGY MCV 87.7 80.0 - 07/08 98.0 /2014 [facility] HEMATOLOGY Hct 39.7 36.0 - 0708 [place] 48.0 [facility] HEMATOLOGY MPV 8.0 7.4 - 10.4 03/05 [facility] HEMATOLOGY Platelet 216 133 - 450 07 [facility] HEMATOLOGY RDW 14.6 11.5 - 07/08 [place] 14.5 [facility] HEMATOLOGY MCHC 32.4 32.0 - 07/08 [place] 36.0 [facility] HEMATOLOGY MCH 28.4 27.0 - 07/08 [place] 31.0 /2014 [facility] HEMATOLOGY WBC 10.5 3.7 - 10.4 07/ [facility] HEMATOLOGY RBC 4.53 4.20 - 07/08 MH [place] 5.40 /2014 [facility] HEMATOLOGY Hgb 12.9 12.0 - 07/08 [facility] 16.0 /2015 [facility] CHEM PANEL Magnesium 2.0 1.8 - 2.4 02/25 MH Lvl /2014 [facility] CHEM PANEL Phosphorus 3.6 2.5 - 4.5 02/25 [facility] CHEM PANEL eGFR 106 02/25 <sup>1</sup>R esult [facility] Comment: The eGFR is calculated using the CKD-EPI formula. In most young, healthy individuals the eGFR will be >90 mL/min/1.73m2 . The eGFR declines with age. An eGFR of 60-89 may be normal in some populations, particularly the elderly, for whom the CKD-EPI formula has not been extensively validated. Use of the eGFR is not recommended in the following populations:& lt;br/>
I ndividuals with unstable creatinine concentration s, including patients and those with serious co-morbid conditions.<b r/>
Patie nts with extremes in muscle mass or diet.

The data above are obtained from the National Kidney Disease Education Program (NKDEP) which additionally recommends that when the eGFR is used in patients with extremes of body mass index for purposes of drug dosing, the eGFR should be multiplied by the estimated BMI. CHEM PANEL AST 17 0 - 37 02/25 [facility] CHEM PANEL Albumin Lvl 3.3 3.5 - 5.0 02/25 [facility] CHEM PANEL A/G Ratio 1.1 0.7 - 1.6 02/25 [facility] CHEM PANEL Total 6.3 6.4 - 8.4 02/25 [facility] CHEM PANEL ALT 21 0 - 65 02/25 [facility] CHEM PANEL Globulin 3.0 2.0 - 4.0 02/25 [facility] CHEM PANEL Bili Total 0.5 0.2 - 1.3 02/25 [facility] CHEM PANEL Alk Phos 119 39 - 136 02/25 [facility] CHEM PANEL B/C Ratio 11 6 - 25 02/25 [facility] CHEM PANEL Calcium Lvl 9.1 8.5 - 10.5 02/25 [facility] CHEM PANEL Glucose Lvl 99 70 - 99 02/25 <sup>3</sup>I nterpretive [facility] Data: Adult reference range values reflect the clinical guidelines
of the [place] [employer]. CHEM PANEL BUN 8 7 - 22 02/25 [facility] CHEM PANEL Sodium Lvl 140 135 - 145 02/25 [facility] CHEM PANEL Creatinine 0.7 0.5 - 1.4 02/25 Lv [facility] CHEM PANEL AGAP 8.9 10.0 - 02/25 MH 20.0 /2014 [facility] CHEM PANEL Chloride Lvl 107 95 - 109 02/25 [facility] CHEM PANEL CO2 28 24 - 32 02/25 [facility] CHEM PANEL Potassium 3.9 3.5 - 5.1 02/25 Lvl [facility] HEMATOLOGY Platelet 216 133 - 450 02/25 [facility] HEMATOLOGY MPV 8.8 7.4 - 10.4 02/25 [facility] HEMATOLOGY RDW 14.9 11.5 - 02/25 MH 14. /2014 [facility] HEMATOLOGY WBC 5.9 3.7 - 10.4 02/25 [facility] HEMATOLOGY MCV 88.4 80.0 - 02/25 MH 98.0 /2014 [facility] HEMATOLOGY Hct 37.2 36.0 - 02/25 MH 48.0 /2014 [facility] HEMATOLOGY MCH 28.6 27.0 - 02/25 MH 31.0 /2014 [facility] HEMATOLOGY MCHC 32.4 32.0 - 02/25 MH 36.0 /2014 [facility] HEMATOLOGY RBC 4.21 4.20 - 02/25 MH 5.40 /2014 [facility] HEMATOLOGY Hgb 12.0 12.0 - 02/25 MH 16.0 /2014 [facility] HEMATOLOGY Lymphocytes 31.9 20.0 - 02/25 MH 40.0 /2014 [facility] HEMATOLOGY Basophils 0.8 0.0 - 1.0 02/25 [facility] HEMATOLOGY Segs-Bands # 3.1 1.5 - 8.1 02/25 [facility] HEMATOLOGY Monocytes 11.6 2.0 - 12.0 02/25 [facility] HEMATOLOGY Eosinophils 2.9 0.0 - 4.0 02/25 [facility] HEMATOLOGY Segs 52.8 45.0 - 02/25 MH 75.0 /2014 [facility] HEMATOLOGY Monocytes # 0.7 0.0 - 0.8 02/25 [facility] HEMATOLOGY Lymphocytes 1.9 1.0 - 5.5 02/25 MH /2014 [facility] HEMATOLOGY Eosinophils 0.2 0.0 - 0.5 02/25 MH # /2014 [facility] CARDIAC Total CK 74 12 - 191 02/25 MH ENZYMES /2014 [facility] CARDIAC CK MB Index 1.2 0.0 - 2.5 02/25 MH ENZYMES /2014 [facility] CARDIAC Troponin-I <0.02 0.00 - 02/25 MH ENZYMES 0.40 [facility] CARDIAC CK MB 0.9 0.5 - 3.6 02/25 MH ENZYMES /2014 [facility] CARDIAC Troponin-I <0.02 0.00 - 02/24 MH ENZYMES 0.40 [facility] CARDIAC CK MB 0.7 0.5 - 3.6 02/24 MH ENZYMES /2014 [facility] CARDIAC Total CK 68 - 191 02/24 MH ENZYMES /2014 [facility] CARDIAC CK MB Index 1.0 0.0 - 2.5 02/24 MH ENZYMES /2014 [facility] CARDIAC CK MB Index 0.9 0.0 - 2.5 02/24 MH ENZYMES /2014 [facility] CARDIAC Troponin-I <0.02 0.00 - 02/24 MH ENZYMES 0.40 [facility] CARDIAC CK MB 0.7 0.5 - 3.6 02/24 MH ENZYMES /2014 [facility] CARDIAC Total CK 76 - 191 02/24 MH ENZYMES /2014 [facility] CHEM PANEL eGFR 90 02/24 <sup>2</sup>R esult [facility] Comment: The eGFR is calculated using the CKD-EPI formula. In most young, healthy individuals the eGFR will be >90 mL/min/1.73m2 . The eGFR declines with age. An eGFR of 60-89 may be normal in some populations, particularly the elderly, for whom the CKD-EPI formula has not been extensively validated. Use of the eGFR is not recommended in the following populations:& lt;br/>
I ndividuals with unstable creatinine concentration s, including patients and those with serious co-morbid conditions.<b r/>
Patie nts with extremes in muscle mass or diet.

The data above are obtained from the National Kidney Disease Education Program (NKDEP) which additionally recommends that when the eGFR is used in patients with extremes of body mass index for purposes of drug dosing, the eGFR should be multiplied by the estimated BMI. CHEM PANEL Globulin 3.1 2.0 - 4.0 02/24 [facility] CHEM PANEL Alk Phos 128 39 - 136 02/24 [facility] CHEM PANEL Bili Total 0.3 0.2 - 1.3 02/24 [facility] CHEM PANEL A/G Ratio 1.1 0.7 - 1.6 02/24 [facility] CHEM PANEL AGAP 7.3 10.0 - 02/24 MH 20.0 /2014 [facility] CHEM PANEL B/C Ratio 12 6 - 25 02/24 [facility] CHEM PANEL Creatinine 0.8 0.5 - 1.4 02/24 MH l [facility] CHEM PANEL Sodium Lvl 140 135 - 145 02/24 [facility] CHEM PANEL Glucose Lvl 88 70 - 99 02/24 <sup>4</sup>I nterpretive [facility] Data: Adult reference range values reflect the clinical guidelines
of the [place] [employer]. CHEM PANEL Potassium 3.3 3.5 - 5.1 02/24 MH [facility] CHEM PANEL Chloride Lvl 106 95 - 109 02/24 [facility] CHEM PANEL BUN 10 7 - 22 02/24 [facility] CHEM PANEL AST 15 0 - 37 02/24 [facility] CHEM PANEL ALT 22 0 - 65 02/24 [facility] CHEM PANEL Calcium Lvl 8.9 8.5 - 10.5 02/24 [facility] CHEM PANEL CO2 30 24 - 32 02/24 [facility] CHEM PANEL Total 6.6 6.4 - 8.4 02/24 [facility] CHEM PANEL Albumin Lvl 3.5 3.5 - 5.0 02/24 [facility] HEMATOLOGY Segs 55.9 45.0 - 02/24 MH 75.0 [facility] HEMATOLOGY Lymphocytes 28.7 20.0 - 02/24 MH 40.0 [facility] HEMATOLOGY Segs-Bands # 3.7 1.5 - 8.1 02/24 [facility] HEMATOLOGY Basophils 0.7 0.0 - 1.0 02/24 [facility] HEMATOLOGY Lymphocytes 1.9 1.0 - 5.5 02/24 MH /2014 [facility] HEMATOLOGY Eosinophils 2.2 0.0 - 4.0 02/24 [facility] HEMATOLOGY Monocytes 12.5 2.0 - 12.0 02/24 [facility] HEMATOLOGY Basophils # 0.0 0.0 - 0.2 02/24 [facility] HEMATOLOGY Eosinophils 0.1 0.0 - 0.5 02/24 MH # /2015 [facility] HEMATOLOGY Monocytes # 0.8 0.0 - 0.8 02/24 MH /2014 [facility] HEMATOLOGY MPV 8.8 7.4 - 10.4 02/24 /2014 [facility] MCH 28.1 27.0 - 02/24 MH 31.0 /2014 [facility] HEMATOLOGY RDW 14.8 11.5 - 02/24 MH 14.5 /[address] [facility] MCHC 32.2 32.0 - 02/24 MH 36.0 /[address] [facility] Platelet 207 133 - 450 02/24 /2014 [facility] HEMATOLOGY Hgb 11.4 12.0 - 02/24 MH 16.0 /2014 [facility] HEMATOLOGY RBC 4.04 4.20 - 02/24 MH 5.40 /[address] [facility] WBC 6.5 3.7 - 10.4 02/24 /[address] [facility] Hct 35.3 36.0 - 02/24 MH 48.0 /[address] [facility] MCV 87.2 80.0 - 02/24 MH 98.0 /2014 [facility] CARDIAC BNP 6 <=100 02/17 <sup>5</sup>I ENZYMES pg/mL /2014 nterpretive [facility] Data: Elevated results are in line with increasing severity of
con gestive heart failure. Minor elevations between 100 and 300
may be seen with Myocardial Ischemia, Sodium retaining drugs,
an d compensated/t reated heart failure. CARDIAC Troponin-I <0.02 0.00 - 02/17 ENZYMES 0.40 /2014 [facility] CARDIAC CK MB 1.0 0.5 - 3.6 02/17 ENZYMES /2014 [facility] CARDIAC Total CK 77 12 - 191 02/17 ENZYMES /2014 [facility] CHEM PANEL Magnesium 1.8 1.8 - 2.4 02/17 Lvl /2014 [facility] CHEM PANEL eGFR 111 02/17 <sup>1</sup>R MH /2014 esult [facility] Comment: The eGFR is calculated using the CKD-EPI formula. In most young, healthy individuals the eGFR will be >90 mL/min/1.73m2 . The eGFR declines with age. An eGFR of 60-89 may be normal in some populations, particularly the elderly, for whom the CKD-EPI formula has not been extensively validated. Use of the eGFR is not recommended in the following populations:& lt;br/>
I ndividuals with unstable creatinine concentration s, including patients and those with serious co-morbid conditions.<b r/>
Patie nts with extremes in muscle mass or diet.

The data above are obtained from the National Kidney Disease Education Program (NKDEP) which additionally recommends that when the eGFR is used in patients with extremes of body mass index for purposes of drug dosing, the eGFR should be multiplied by the estimated BMI. CHEM PANEL Chloride Lvl 111 95 - 109 02/17 [facility] CHEM PANEL Potassium 3.8 3.5 - 5.1 02/17 Lvl [facility] CHEM PANEL Sodium Lvl 144 135 - 145 02/17 [facility] CHEM PANEL Calcium Lvl 8.6 8.5 - 10.5 02/17 [facility] CHEM PANEL AGAP 11.8 10.0 - 02/17 MH 20.0 [facility] CHEM PANEL CO2 25 24 - 32 02/17 [facility] CHEM PANEL Creatinine 0.6 0.5 - 1.4 02/17 Lvl [facility] CHEM PANEL BUN 6 7 - 22 02/17 [facility] CHEM PANEL Glucose Lvl 72 70 - 99 02/17 <sup>3</sup>I nterpretive [facility] Data: Adult reference range values reflect the clinical guidelines
of the [place] [employer]. HEMATOLOGY Hgb 11.5 12.0 - 02/17 MH 16.0 [facility] LIPIDS HDL 51 >=61 mg/dL 02/17 [facility] LIPIDS VLDL 17 02/17 [facility] LIPIDS LDL 96 <=99 mg/dL 02/17 (Calculated) [facility] LIPIDS Chol 164 <=199 02/17 mg/dL /2014 [facility] LIPIDS Trig 84 <=149 02/17 mg/dL /2014 [facility] LIPIDS CHD Risk 3.22 3.90 - 02/17 MH 5.80 /2014 [facility] SPECIAL Hgb A1C 5.8 <=5.6 % 02/17 CHEMISTRY /2014 [facility] CARDIAC Troponin-I <0.02 0.00 - 02/17 ENZYMES 0.40 /2014 [facility] CARDIAC Total CK 92 12 - 191 02/17 ENZYMES /2014 [facility] CARDIAC CK MB 1.2 0.5 - 3.6 02/17 ENZYMES /2014 [facility] CARDIAC CK MB 1.2 0.5 - 3.6 02/16 ENZYMES /2014 [facility] CARDIAC CK MB Index 1.3 0.0 - 2.5 02/16 ENZYMES /2014 [facility] CARDIAC Total CK 93 12 - 191 02/16 ENZYMES /2014 [facility] CARDIAC Troponin-I <0.02 0.00 - 02/16 ENZYMES 0.40 /2014 [facility] CARDIAC BNP 4 <=100 02/16 <sup>6</sup>I ENZYMES pg/mL /2014 nterpretive [facility] Data: Elevated results are in line with increasing severity of
con gestive heart failure. Minor elevations between 100 and 300
may be seen with Myocardial Ischemia, Sodium retaining drugs,
an d compensated/t reated heart failure. CHEM PANEL Lipase Lvl 307 73 - 393 02/16 [facility] CHEM PANEL A/G Ratio 1.0 0.7 - 1.6 02/16 [facility] CHEM PANEL Globulin 3.6 2.0 - 4.0 02/16 [facility] CHEM PANEL Bili 0.4 0.0 - 1.0 02/16 [facility] CHEM PANEL Bili Direct 0.1 0.0 - 0.3 02/16 [facility] CHEM PANEL Bili Total 0.5 0.2 - 1.3 02/16 [facility] CHEM PANEL Total 7.3 6.4 - 8.4 02/16 Protein [facility] CHEM PANEL Alk Phos 150 39 - 136 02/16 [facility] CHEM PANEL AST 15 0 - 37 02/16 [facility] CHEM PANEL ALT 21 0 - 65 02/16 [facility] CHEM PANEL Albumin Lvl 3.7 3.5 - 5.0 02/16 [facility] CHEM PANEL Phosphorus 3.1 2.5 - 4.5 02/16 [facility] CHEM PANEL Magnesium 1.9 1.8 - 2.4 02/16 Lvl /2014 [facility] CHEM PANEL eGFR 90 02/16 <sup>2</sup>R esult [facility] Comment: The eGFR is calculated using the CKD-EPI formula. In most young, healthy individuals the eGFR will be >90 mL/min/1.73m2 . The eGFR declines with age. An eGFR of 60-89 may be normal in some populations, particularly the elderly, for whom the CKD-EPI formula has not been extensively validated. Use of the eGFR is not recommended in the following populations:& lt;br/>
I ndividuals with unstable creatinine concentration s, including patients and those with serious co-morbid conditions.<b r/>
Patie nts with extremes in muscle mass or diet.

The data above are obtained from the National Kidney Disease Education Program (NKDEP) which additionally recommends that when the eGFR is used in patients with extremes of body mass index for purposes of drug dosing, the eGFR should be multiplied by the estimated BMI. CHEM PANEL Calcium Lvl 9.0 8.5 - 10.5 02/16 [facility] CHEM PANEL CO2 28 24 - 32 02/16 [facility] CHEM PANEL Chloride Lvl 107 95 - 109 02/16 [facility] CHEM PANEL Creatinine 0.8 0.5 - 1.4 02/16 [facility] CHEM PANEL BUN 11 7 - 22 02/16 [facility] CHEM PANEL Potassium 3.5 3.5 - 5.1 02/16 [facility] CHEM PANEL Sodium Lvl 139 135 - 145 02/16 [facility] CHEM PANEL Glucose Lvl 76 70 - 99 02/16 <sup>4</sup>I nterpretive [facility] Data: Adult reference range values reflect the clinical guidelines
of the [place] [employer]. CHEM PANEL AGAP 7.5 10.0 - 02/16 MH 20.0 [facility] HEMATOLOGY Eosinophils 3.3 0.0 - 4.0 02/16 [facility] HEMATOLOGY Monocytes 9.1 2.0 - 12.0 02/16 [facility] HEMATOLOGY Lymphocytes 28.9 20.0 - 02/16 MH 40.0 /2014 [facility] HEMATOLOGY Segs 58.3 45.0 - 02/16 MH 75.0 [facility] HEMATOLOGY Segs-Bands # 3.8 1.5 - 8.1 02/16 [facility] HEMATOLOGY Basophils 0.4 0.0 - 1.0 02/16 [facility] HEMATOLOGY Monocytes # 0.6 0.0 - 0.8 02/16 [facility] HEMATOLOGY Lymphocytes 1.9 1.0 - 5.5 02/16 MH /2014 [facility] HEMATOLOGY Eosinophils 0.2 0.0 - 0.5 02/16 # /2015 [facility] HEMATOLOGY Basophils # 0.0 0.0 - 0.2 02/16 /2014 [facility] HEMATOLOGY PTT 36.0 22.9 - 02/16 <sup>8</sup>I 35.8 /2014 nterpretive [facility] Data: Heparin Therapeutic Range: 57 - 92 Seconds HEMATOLOGY PT 12.9 12.0 - 02/16 14.7 /2014 [facility] HEMATOLOGY INR 0.97 0.85 - 02/16 <sup>7</sup>I 1.17 /2014 nterpretive [facility] Data: RECOMMENDED RANGES FOR PROTIME INR:
2.0-3.0 for most medical and surgical thromboemboli c states.
2.5-3.5 for artificial heart valves and recurrent embolism.<br/ >
INR SHOULD BE USED ONLY FOR PATIENTS ON STABLE ANTICOAGULANT THERAPY. HEMATOLOGY Platelet 225 133 - 450 02/16 /2014 [facility] RDW 14.7 11.5 - 02/16 14.5 /2014 [facility] HEMATOLOGY MPV 8.7 7.4 - 10.4 02/16 /2014 [facility] HEMATOLOGY MCHC 32.6 32.0 - 02/16 36.0 /2014 [facility] HEMATOLOGY Hct 39.5 36.0 - 02/16 48.0 /2014 [facility] HEMATOLOGY MCV 87.3 80.0 - 02/16 98.0 /2014 [facility] MCH 28.4 27.0 - 02/16 31.0 /2014 [facility] RBC 4.52 4.20 - 02/16 5.40 /2014 [facility] HEMATOLOGY Hgb 12.9 12.0 - 02/16 16.0 /2014 [facility] HEMATOLOGY WBC 6.5 3.7 - 10.4 02/16 /2014 [facility] MYOGLOBIN Myoglobin 46 25 - 72 02/16 /2014 [facility] CARDIAC BNP 15 <=100 12/22 <sup>3</sup>I ENZYMES pg/mL /2013 nterpretive [facility] Data: Elevated results are in line with increasing severity of
con gestive heart failure. Minor elevations between 100 and 300
may be seen with Myocardial Ischemia, Sodium retaining drugs,
an d compensated/t reated heart failure. CARDIAC Troponin-I <0.02 0.00 - 12/22 ENZYMES 0.40 /2013 [facility] CARDIAC Total CK 80 12 - 191 12/22 ENZYMES [facility] CARDIAC CK MB <0.5 0.5 - 3.6 12/22 ENZYMES [facility] CARDIAC CK MB Index <0.6 0.0 - 2.5 12/22 ENZYMES [facility] CHEM PANEL eGFR 112 12/22 <sup>1</sup>R esult [facility] Comment: The eGFR is calculated using the CKD-EPI formula. In most young, healthy individuals the eGFR will be >90 mL/min/1.73m2 . The eGFR declines with age. An eGFR of 60-89 may be normal in some populations, particularly the elderly, for whom the CKD-EPI formula has not been extensively validated. Use of the eGFR is not recommended in the following populations:& lt;br/>
I ndividuals with unstable creatinine concentration s, including patients and those with serious co-morbid conditions.<b r/>
Patie nts with extremes in muscle mass or diet.

The data above are obtained from the National Kidney Disease Education Program (NKDEP) which additionally recommends that when the eGFR is used in patients with extremes of body mass index for purposes of drug dosing, the eGFR should be multiplied by the estimated BMI. CHEM PANEL Globulin 3.6 2.0 - 4.0 12/22 [facility] CHEM PANEL B/C Ratio 17 6 - 25 12/22 [facility] CHEM PANEL A/G Ratio 1.1 0.7 - 1.6 12/22 [facility] CHEM PANEL Glucose Lvl 101 70 - 99 12/22 <sup>2</sup>I nterpretive [facility] Data: Adult reference range values reflect the clinical guidelines
of the [place] [employer]. CHEM PANEL ALT 34 0 - 65 12/22 [facility] CHEM PANEL Albumin Lvl 3.9 3.5 - 5.0 12/22 [facility] CHEM PANEL Alk Phos 89 39 - 136 12/22 [facility] CHEM PANEL AST 22 0 - 37 12/22 [facility] CHEM PANEL Bili Total 0.6 0.2 - 1.3 12/22 [facility] CHEM PANEL AGAP 5.5 10.0 - 12/22 MH 20.0 /2013 [facility] CHEM PANEL Creatinine 0.6 0.5 - 1.4 12/22 [facility] CHEM PANEL BUN 10 7 - 22 12/22 [facility] CHEM PANEL Potassium 3.5 3.5 - 5.1 12/22 [facility] CHEM PANEL Sodium Lvl 140 135 - 145 12/22 [facility] CHEM PANEL Chloride Lvl 109 95 - 109 12/22 [facility] CHEM PANEL CO2 29 24 - 32 12/22 [facility] CHEM PANEL Total 7.5 6.4 - 8.4 12/22 [facility] CHEM PANEL Calcium Lvl 9.2 8.5 - 10.5 12/22 [facility] DRUG U Opiate Scr Negative Negative 12/22 SCREEN *NA* [facility] (12/22/13 4:17 PM) DRUG U Phencyc Negative Negative 12/22 SCREEN Scr *NA* [facility] (12/22/13 4:17 PM) DRUG UDS Note See Note 4 12/22 <sup>4</sup>I MH SCREEN *NA* nterpretive [facility] (12/22/13 4:17 PM) Data: Drugs reported as positive have not been confirmed by a second
md thod and should be used for medical purposes only. To order
con firmation, contact laboratory.<b r/>
not e: Below are cut-off concentration s for all urine drugs of
abuse performed in the laboratory. Some drugs listed in the table
may not be included in this panel.
<b r/>Descriptio n Cut-off concentration
----- ------
Am phetamine 1000 ng/mL
Bar biturates 200 ng/mL
Keo zodiazepines 300 ng/mL
Darcy brionna metabolites 300 ng/mL
Opi ates 300 ng/mL
Phencyclidine 25 ng/mL
Pro poxyphene 300 ng/mL
Marijuana metabolites 50 ng/mL
Met hadone 300 ng/mL
Urine alcohol 20 mg/dL DRUG U Benzodia Negative Negative 12/22 SCREEN Scr *NA* /2013 [facility] (12/22/13 4:17 PM) DRUG U Keyla Scr Negative Negative 12/22 SCREEN *NA* [facility] (12/22/13 4:17 PM) DRUG U Amph Scr Negative Negative 12/22 SCREEN *NA* [facility] (12/22/13 4:17 PM) DRUG U Cannab Scr Negative Negative 12/22 SCREEN *NA* [facility] (12/22/13 4:17 PM) DRUG U Cocaine Negative Negative 12/22 SCREEN Scr *NA* [facility] (12/22/13 4:17 PM) HEMATOLOGY PTT 35.2 22.9 - 12/22 <sup>6</sup>I 35.8 /2013 nterpretive [facility] Data: Heparin Therapeutic Range: 57 - 92 Seconds HEMATOLOGY PT 12.2 12.0 - 12/22 14.7 [facility] HEMATOLOGY INR 0.91 0.85 - 12/22 <sup>5</sup>I 1.17 nterpretive [facility] Data: RECOMMENDED RANGES FOR PROTIME INR:
2.0-3.0 for most medical and surgical thromboemboli c states.
2.5-3.5 for artificial heart valves and recurrent embolism.<br/ >
INR SHOULD BE USED ONLY FOR PATIENTS ON STABLE ANTICOAGULANT THERAPY. HEMATOLOGY MPV 8.4 7.4 - 10.4 12/22 [facility] HEMATOLOGY MCH 29.2 27.0 - 12/22 31.0 /2013 [facility] HEMATOLOGY MCHC 33.4 32.0 - 12/22 36.0 /2013 [facility] HEMATOLOGY RDW 14.5 11.5 - 12/22 14.5 [facility] HEMATOLOGY Platelet 219 133 - 450 12/22 [facility] HEMATOLOGY Hct 41.6 36.0 - 12/22 48.0 /2013 [facility] HEMATOLOGY MCV 87.5 81.0 - 12/22 99.0 /2013 [facility] HEMATOLOGY RBC 4.76 4.20 - 12/22 5.40 /2013 [facility] HEMATOLOGY Hgb 13.9 12.0 - 12/22 MH 16.0 /2014 [facility] HEMATOLOGY WBC 8.5 3.7 - 10.4 12/22 /2013 [facility] HEMATOLOGY Eosinophils 0.2 0.0 - 0.5 12/22 MH # /2014 [facility] HEMATOLOGY Basophils # 0.0 0.0 - 0.2 12/22 /2013 [facility] HEMATOLOGY Segs 66.1 45.0 - 12/22 MH 75.0 /2013 [facility] HEMATOLOGY Monocytes 6.1 2.0 - 12.0 12/22 /2013 [facility] HEMATOLOGY Lymphocytes 25.0 20.0 - 12/22 MH 40.0 /2014 [facility] HEMATOLOGY Eosinophils 2.4 0.0 - 4.0 12/22 /2013 [facility] HEMATOLOGY Basophils 0.4 0.0 - 1.0 12/22 /2013 [facility] HEMATOLOGY Lymphocytes 2.1 1.0 - 5.5 12/22 MH # /2013 [facility] HEMATOLOGY Monocytes # 0.5 0.0 - 0.8 12/22 /2013 [facility] HEMATOLOGY Segs-Bands # 5.6 1.5 - 8.1 12/22 /2013 [facility] URINE AND UA WBC 3-5 /HPF None Seen 12/22 STOOL /HPF /2013 [facility] URINE AND UA Sq Epi Occasional Few /LPF 12/22 STOOL /LPF /2013 [facility] URINE AND UA Rare /HPF None Seen 12/22 STOOL Trichomonas /HPF /2013 [facility] URINE AND UA Bacteria Few /HPF None Seen 12/22 STOOL /HPF /2013 [facility] URINE AND UA Blood Trace Negative 12/22 STOOL *ABN* /2013 [facility] (12/22/13 4:17 PM) URINE AND UA Bili Negative Negative 12/22 STOOL *NA* [facility] (12/22/13 4:17 PM) URINE AND UA 0.2 0.1 - 1.0 12/22 STOOL Urobilinogen /2013 [facility] URINE AND UA Leuk Est Small Negative 12/22 STOOL *ABN* [facility] (12/22/13 4:17 PM) URINE AND UA Ketones Negative Negative 12/22 STOOL *NA* /2013 [facility] (12/22/13 4:17 PM) URINE AND UA Glucose Negative Negative 12/22 STOOL (12/22/13 4:17 PM) /2013 [facility] est URINE AND UA Turbidity Clear Clear 12/22 STOOL (12/22/13 4:17 PM) /2013 [facility] est URINE AND UA Color Yellow Yellow 12/22 STOOL *NA* /2013 [facility] (12/22/13 4:17 PM) URINE AND UA pH 6.0 5.0 - 8.0 12/22 STOOL [place] URINE AND UA Spec Grav 1.015 <=1.030 12/22 STOOL [facility] URINE AND UA Protein Negative Negative 12/22 STOOL (12/22/13 4:17 PM) [facility] est URINE AND UA Nitrite Negative Negative 12/22 STOOL (12/22/13 4:17 PM) [facility] CHEM PANEL Phosphorus 2.7 2.5 - 4.5 12/17 [facility] CHEM PANEL Magnesium 2.2 1.8 - 2.4 12/17 [facility] ELECTROLYT AGAP 10.5 10.0 - 12/17 [facility] ES 20.0 [facility] ELECTROLYT eGFR 91 12/17 <sup>1</sup>[place] [facility] Comment: The [place] eGFR is calculated using the CKD-EPI formula. In most young, healthy individuals the eGFR will be >90 mL/min/1.73m2 . The eGFR declines with age. An eGFR of 60-89 may be normal in some populations, particularly the elderly, for whom the CKD-EPI formula has not been extensively validated. Use of the eGFR is not recommended in the following populations:& lt;br/>
I ndividuals with unstable creatinine concentration s, including patients and those with serious co-morbid conditions.<b r/>
Patie nts with extremes in muscle mass or diet.

The data above are obtained from the National Kidney Disease Education Program (NKDEP) which additionally recommends that when the eGFR is used in patients with extremes of body mass index for purposes of drug dosing, the eGFR should be multiplied by the estimated BMI. ELECTROLYT BUN 10 7 - 22 12/17 [facility] ELECTROLYT Creatinine 0.8 0.5 - 1.4 12/17 [facility] Lvl [facility] ELECTROLYT Sodium Lvl 142 135 - 145 12/17 [facility] ELECTROLYT Glucose Lvl 87 70 - 99 12/17 <sup>3</sup>I [facility] /2014 nterpretive Medical Data: Adult Center reference range values reflect the clinical guidelines
of the [place] [employer]. ELECTROLYT CO2 30 24 - 32 12/17 [facility] ES [facility] ELECTROLYT Potassium 4.5 3.5 - 5.1 12/17 [facility] ES Lvl [facility] ELECTROLYT Chloride Lvl 106 95 - 109 12/[place] [facility] ELECTROLYT Calcium Lvl 8.6 8.5 - 10.5 12/17 [place] [facility] HEMATOLOGY INR 0.97 0.85 - 12/17 <sup>7</sup>[place] 1.17 nterpretive Medical Data: Center RECOMMENDED RANGES FOR PROTIME INR:
2.0-3.0 for most medical and surgical thromboemboli c states.
2.5-3.5 for artificial heart valves and recurrent embolism.<br/ >
INR SHOULD BE USED ONLY FOR PATIENTS ON STABLE ANTICOAGULANT THERAPY. HEMATOLOGY PTT 32.4 22.9 - 12/17 <sup>9</sup>I [place] 35.8 nterpretive Medical Data: Heparin Center Therapeutic Range: 57 - 92 Seconds HEMATOLOGY PT 12.8 12.0 - 12/17 [place] 14.7 /2013 [facility] HEMATOLOGY Hgb 13.7 12.0 - 12/17 [place] 16.0 [facility] HEMATOLOGY RBC 4.88 4.20 - 12/17 [place] 5.40 /2013 [facility] HEMATOLOGY MCH 28.1 27.0 - 12/17 [place] 31.0 [facility] HEMATOLOGY Hct 42.1 36.0 - 12/17 [place] 48.0 /2013 [facility] HEMATOLOGY MCV 86.4 81.0 - 12/17 [place] 99.0 /2013 [facility] HEMATOLOGY RDW 14.3 11.5 - 12/17 14.5 [facility] HEMATOLOGY MCHC 32.5 32.0 - 12/17 [place] 36.0 /2013 [facility] HEMATOLOGY MPV 8.4 7.4 - 10.4 12/17 [facility] HEMATOLOGY Platelet 197 133 - 450 12/17 [facility] HEMATOLOGY WBC 7.2 3.7 - 10.4 12/17 [facility] HEMATOLOGY Monocytes 10.7 2.0 - 12.0 12/17 [facility] HEMATOLOGY Lymphocytes 27.2 20.0 - 12/17 [place] 40.0 [facility] HEMATOLOGY Lymphocytes 1.9 1.0 - 5.5 12/17 [place] # [facility] HEMATOLOGY Eosinophils 3.2 0.0 - 4.0 12/17 a s [facility] HEMATOLOGY Basophils 0.6 0.0 - 1.0 12/17 [facility] HEMATOLOGY Segs-Bands # 4.2 1.5 - 8.1 12/17 [facility] HEMATOLOGY Eosinophils 0.2 0.0 - 0.5 12/17 [place] # [facility] HEMATOLOGY Monocytes # 0.8 0.0 - 0.8 12/17 [facility] HEMATOLOGY Segs 58.3 45.0 - 12/17 [place] 75.0 [facility] PARATHYROI Ca Norm WB 1.11 1. - 12/17 [facility] D PROFILE 1. [facility] PARATHYROI Ca Ion WB 1.17 1. - 12/17 [facility] D PROFILE 1. [facility] DRUG U Benzodia Negative Negative 12/17 [facility] SCREEN Scr *NA* Medical (12/16/13 10:45 PM) Cente r DRUG U Cannab Scr Positive Negative 12/17 [facility] SCREEN *ABN* Medical (12/16/13 10:45 PM) Cente r DRUG U Cocaine Negative Negative 12/17 [facility] SCREEN Scr *NA* Medical (12/16/13 10:45 PM) Cente r DRUG U Phencyc Negative Negative 12/17 [facility] SCREEN Scr *NA* Medical (12/16/13 10:45 PM) Cente r DRUG U Opiate Scr Negative Negative 12/17 [facility] SCREEN *NA* Medical (12/16/13 10:45 PM) Cente r DRUG UDS Note See Note 6 12/17 <sup>6</sup>I [facility] as SCREEN (12/16/13 10:45 PM) /2013 nterpretive M edical Data: Drugs Center reported as positive have not been confirmed by a second
md thod and should be used for medical purposes only. To order
con firmation, contact laboratory.<b r/>
not e: Below are cut-off concentration s for all urine drugs of
abuse performed in the laboratory. Some drugs listed in the table
may not be included in this panel.
<b r/>Descriptio n Cut-off concentration
----- ------
Am phetamine 1000 ng/mL
Bar biturates 200 ng/mL
Keo zodiazepines 300 ng/mL
Darcy brionna metabolites 300 ng/mL
Opi ates 300 ng/mL
Phencyclidine 25 ng/mL
Pro poxyphene 300 ng/mL
Marijuana metabolites 50 ng/mL
Met hadone 300 ng/mL
Urine alcohol 20 mg/dL DRUG U Amph Scr Negative Negative 12/17 [facility] SCREEN *NA* /2013 Medical (12/16/13 10:45 PM) Cente r DRUG U Keyla Scr Negative Negative 12/17 [facility] SCREEN *NA* /2013 Medical (12/16/13 10:45 PM) Cente r CARDIAC Total CK 56 12 - 191 12/17 [facility] ENZYMES /2013 [facility] CARDIAC Troponin-T <0.010 0.000 - 12/17 [facility] ENZYMES 0.100 [facility] CARDIAC Troponin-I <0.02 0.00 - 12/17 [facility] ENZYMES 0.40 [facility] CARDIAC BNP 13 <=100 12/17 <sup>5</sup>I [facility] ENZYMES pg/mL /2013 nterpretive Medical Data: Center Elevated results are in line with increasing severity of
con gestive heart failure. Minor elevations between 100 and 300
may be seen with Myocardial Ischemia, Sodium retaining drugs,
an d compensated/t reated heart failure. LIPIDS VLDL 18 12/17 [place] /2013 [facility] LIPIDS LDL 88 <=99 mg/dL 12/17 [facility] (Calculated) [facility] LIPIDS Trig 88 <=149 12/17 [facility] mg/dL /2013 [facility] LIPIDS CHD Risk 3.08 3.90 - 12/17 [place] 5.80 /2013 [facility] LIPIDS Chol 157 <=199 12/17 [facility] mg/dL /2013 [facility] LIPIDS HDL 51 >=61 mg/dL 12/17 [facility] SPECIAL Hgb A1C 5.3 <=5.6 % 12/17 [facility] CHEMISTRY /2013 [facility] THYROID TSH 0.870 0.360 - 12/17 [facility] PANEL 3.740 /2013 [facility] CARDIAC Total CK 42 12 - 191 12/16 [facility] ENZYMES /2013 [facility] CARDIAC Troponin-I <0.02 0.00 - 12/16 [facility] ENZYMES 0.40 [facility] CHEM PANEL Lactic Acid 1.3 0.5 - 2.2 12/16 [place] L[place] /2013 [facility] HEMATOLOGY PT 11.8 12.0 - 12/16 [place] 14.7 /2013 [facility] HEMATOLOGY INR 0.87 0.85 - 12/16 <sup>8</sup>I [place] 1.17 /2013 nterpretive Medical Data: Center RECOMMENDED RANGES FOR PROTIME INR:
2.0-3.0 for most medical and surgical thromboemboli c states.
2.5-3.5 for artificial heart valves and recurrent embolism.<br/ >
INR SHOULD BE USED ONLY FOR PATIENTS ON STABLE ANTICOAGULANT THERAPY. HEMATOLOGY PTT 31.2 22.9 - 12/16 <sup>10</sup> [place] 35.8 /2013 Interpretive Medical Data: Heparin Center Therapeutic Range: 57 - 92 Seconds HEMATOLOGY RBC 4.69 4.20 - 12/16 [place] 5.40 /2013 [facility] HEMATOLOGY WBC 6.6 3.7 - 10.4 12/16 [facility] HEMATOLOGY Hct 40.5 36.0 - 12/16 [place] 48.0 /2013 [facility] HEMATOLOGY MCV 86.4 81.0 - 12/16 [place] 99.0 /2013 [facility] HEMATOLOGY Hgb 13.6 12.0 - 12/16 [place] 16.0 /2013 [facility] HEMATOLOGY MCH 29.0 27.0 - 12/16 [place] 31.0 /2013 [facility] HEMATOLOGY MCHC 33.6 32.0 - 12/16 [place] 36.0 [facility] HEMATOLOGY Platelet 202 133 - 450 12/16 [facility] HEMATOLOGY RDW 13.4 11.5 - 12/16 14.5 [facility] HEMATOLOGY MPV 8.6 7.4 - 10.4 12/16 [facility] HEMATOLOGY Monocytes # 0.8 0.0 - 0.8 12/16 [facility] HEMATOLOGY Basophils # 0.0 0.0 - 0.2 12/16 [facility] HEMATOLOGY Monocytes 12.1 2.0 - 12.0 12/16 [facility] HEMATOLOGY Eosinophils 3.8 0.0 - 4.0 12/16 [facility] HEMATOLOGY Basophils 0.6 0.0 - 1.0 12/16 [facility] HEMATOLOGY Segs-Bands # 3.9 1.5 - 8.1 12/16 [facility] HEMATOLOGY Eosinophils 0.3 0.0 - 0.5 12/16 a s [facility] HEMATOLOGY Lymphocytes 1.6 1.0 - 5.5 12/16 a s [facility] HEMATOLOGY Lymphocytes 25.0 20.0 - 12/16 [place] 40.0 [facility] HEMATOLOGY Segs 58.5 45.0 - 12/16 75.0 [facility] CHEM PANEL eGFR 79 12/16 <sup>2</sup>R esult Medical Comment: The Center eGFR is calculated using the CKD-EPI formula. In most young, healthy individuals the eGFR will be >90 mL/min/1.73m2 . The eGFR declines with age. An eGFR of 60-89 may be normal in some populations, particularly the elderly, for whom the CKD-EPI formula has not been extensively validated. Use of the eGFR is not recommended in the following populations:& lt;br/>
I ndividuals with unstable creatinine concentration s, including patients and those with serious co-morbid conditions.<b r/>
Patie nts with extremes in muscle mass or diet.

The data above are obtained from the National Kidney Disease Education Program (NKDEP) which additionally recommends that when the eGFR is used in patients with extremes of body mass index for purposes of drug dosing, the eGFR should be multiplied by the estimated BMI. CHEM PANEL Creatinine 0.9 0.5 - 1.4 12/16 [facility] CHEM PANEL Sodium Lvl 142 135 - 145 12/16 [facility] CHEM PANEL Potassium 4.5 3.5 - 5.1 12/16 [facility] CHEM PANEL Chloride Lvl 107 95 - 109 12/16 [facility] CHEM PANEL Glucose Lvl 78 70 - 99 12/16 <sup>4</sup>I nterpretive Medical Data: Adult Center reference range values reflect the clinical guidelines
of the [place] [employer]. CHEM PANEL BUN 11 7 - 22 12/16 [facility] CHEM PANEL A/G Ratio 1.0 0.7 - 1.6 12/16 [facility] CHEM PANEL B/C Ratio 12 6 - 25 12/16 [facility] CHEM PANEL Globulin 3.6 2.0 - 4.0 12/16 [facility] CHEM PANEL AGAP 16.5 10.0 - 12/16 20.0 [facility] CHEM PANEL Total 7.2 6.4 - 8.4 12/16 Protein [facility] CHEM PANEL AST 19 0 - 37 12/16 [facility] CHEM PANEL CO2 23 24 - 32 12/16 [facility] CHEM PANEL Calcium Lvl 9.2 8.5 - 10.5 12/16 [facility] CHEM PANEL Bili Total 0.3 0.2 - 1.3 12/16 [facility] CHEM PANEL Albumin Lvl 3.6 3.5 - 5.0 12/16 [facility] CHEM PANEL Alk Phos 87 39 - 136 12/16 [facility] CHEM PANEL ALT 31 0 - 65 12/16 [facility] CARDIAC Total CK 56 12 - 191 12/16 [facility] ENZYMES [facility] CARDIAC Troponin-I <0.02 0.00 - 12/16 [facility] Center ENZYMES 0.40 [facility] CARDIAC Troponin-I <0.02 0.00 - 11/08 [facility] ENZYMES 0.40 [facility] CARDIAC Total CK 49 12 - 191 11/08 [facility] ENZYMES /2013 [facility] CARDIAC Troponin-T <0.010 0.000 - 11/08 [facility] ENZYMES 0.100 /2013 [facility] MYOGLOBIN Myoglobin 36 25 - 72 11/08 /2013 [facility] CARDIAC Troponin-T <0.010 0.000 - 11/08 [facility] ENZYMES 0.100 /2013 [facility] CARDIAC Total CK 54 12 - 191 11/08 [facility] /2013 [facility] CARDIAC Troponin-I <0.02 0.00 - 11/08 [facility] ENZYMES 0.40 [facility] CARDIAC Troponin-I <0.02 0.00 - 11/08 [facility] ENZYMES 0.40 [facility] ELECTROLYT AGAP 11.4 10.0 - 11/08 [facility] ES 20.0 [facility] ELECTROLYT eGFR 69 11/08 <sup[place]sup[place] [facility] Medical Comment: The Center eGFR is calculated using the CKD-EPI formula. In most young, healthy individuals the eGFR will be >90 mL/min/1.73m2 . The eGFR declines with age. An eGFR of 60-89 may be normal in some populations, particularly the elderly, for whom the CKD-EPI formula has not been extensively validated. Use of the eGFR is not recommended in the following populations:& lt;br/>
I ndividuals with unstable creatinine concentration s, including patients and those with serious co-morbid conditions.<b r/>
Patie nts with extremes in muscle mass or diet.

The data above are obtained from the National Kidney Disease Education Program (NKDEP) which additionally recommends that when the eGFR is used in patients with extremes of body mass index for purposes of drug dosing, the eGFR should be multiplied by the estimated BMI. ELECTROLYT Calcium Lvl 9.2 8.5 - 10.5 11/08 [place] [facility] ELECTROLYT CO2 27 24 - 32 11/08 [facility] ELECTROLYT Chloride Lvl 105 95 - 109 11/08 [place] [facility] ELECTROLYT Potassium 3.4 3.5 - 5.1 11/08 [facility] ES Lvl [facility] ELECTROLYT Sodium Lvl 140 135 - 145 11/08 [facility] ELECTROLYT BUN 11 7 - 22 11/08 [facility] ELECTROLYT Glucose Lvl 84 70 - 99 11/08 <sup>2</sup>I nterpretive Medical Data: Adult Center reference range values reflect the clinical guidelines
of the [place] [employer]. ELECTROLYT Creatinine 1.0 0.5 - 1.4 11/08 [facility] ES Lvl [facility] HEMATOLOGY Basophils # 0.1 0.0 - 0.2 11/08 [facility] HEMATOLOGY Eosinophils 0.2 0.0 - 0.5 11/08 [place] [facility] HEMATOLOGY Monocytes # 0.8 0.0 - 0.8 11/08 [facility] HEMATOLOGY Segs 72.5 45.0 - 11/08 [place] 75.0 [facility] [place] HEMATOLOGY Lymphocytes 17.0 20.0 - 11/08 40.0 [facility] HEMATOLOGY Eosinophils 2.1 0.0 - 4.0 11/08 [facility] HEMATOLOGY Monocytes 7.8 2.0 - 12.0 11/08 [facility] HEMATOLOGY Segs-Bands # 7.6 1.5 - 8.1 11/08 [facility] HEMATOLOGY Basophils 0.6 0.0 - 1.0 11/08 [facility] HEMATOLOGY Lymphocytes 1.8 1.0 - 5.5 11/08 s [facility] HEMATOLOGY MPV 8.7 7.4 - 10.4 11/08 [facility] [place] HEMATOLOGY RDW 14.0 11.5 - 11/08 [place] 14.5 [facility] HEMATOLOGY Platelet 191 133 - 450 11/08 [facility] [place] HEMATOLOGY MCHC 33.9 32.0 - 11/08 [place] 36.0 /2013 [facility] HEMATOLOGY RBC X 10x6 4.65 4.20 - 11/08 [place] 5.40 /2013 [facility] HEMATOLOGY WBC X 10x3 10.6 3.7 - 10.4 11/08 [facility] [place] HEMATOLOGY MCH 29.3 27.0 - 11/08 [place] 31.0 [facility] HEMATOLOGY MCV 86.6 81.0 - 11/08 [facility] [place] 99.0 /2013 [facility] HEMATOLOGY Hgb 13.6 12.0 - 11/08 [facility] 16.0 /2014 [facility] HEMATOLOGY Hct 40.2 36.0 - 11/08 [facility] 48.0 /2014 [facility] Pathology Reports No Data Provided for This Section Diagnostic Reports Report Value Date Source ED Abdomen/Pelvis IV Patient Name: LUCIUS YEPEZ 01/19/2017 [facility] contrast only CT : 1950; Age: 66 years Female MR: [id number] Study: ED Abdomen/Pelvis IV contrast only CT 12/28 1:00 PM CDT Clinical Indication: Abdomin al pain, acute, 75ml omnipaque, ct dlp-437.91,jaiden - abdomial pain.Generalized abdominal pain. COMPARISON: 03/24/2015. TECHNIQUE: Helical imaging w as performed diaphragm through the symphysis with IV multiplanar reformations obtained after the administration of IV contrast. The lack of intraperitoneal fat limits detail. FINDINGS: LOWER CHEST: The lung bases are clear. Cardiomegaly with minimal anterior pericardial effusion. ABDOMEN: No free air. LIVER: Normal. BILIARY TREE: Normal. GALLBLADDER: Normal. PANCREAS: Normal. SPLEEN: Normal. ADRENALS: Normal. KIDNEYS: No hydronephrosis. 2-3 mm left renal stone measuring 534 Hounsfield units. Punctate right renal stone is suspected. PELVIS: Multiple calcified u terine masses are suspected. The urinary bladder is normal. BOWEL: No small bowel obstruction. Severe degre e of constipation. PERITONEUM: No free intraperitoneal fluid. RETROPERITONEUM: The aorta is normal. There is n o pathologic lymphadenopathy. 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 Anterolisthesis of L4 on L5 measures 6 mm. IMPRESSION: 1. Severe constipation. 2. Bilateral nephrolithiasis without obstructio n. 3. Minimal pericardial effusion. 4. Nonvisualization of the appendix. If there are symptoms referrable to the appendix, a follow-up computed tomography scan of the pelvis with IV and oral contrast is recommended in 48 to 72 hours. 5. Presumed multi fibroid uterus. SL: [id number] Chest 1view DX EXAM: XR CHEST 1 VIEW 01/16/2017 [facility] DATE: 01/16/2017 6:41 PM CDT Cent er INDICATION: Chest pain COMPARISON: Chest x-ray November 28, 2016 TECHNIQUE: AP chest FINDINGS: Lines and tubes and devices: None. Lungs and pleura: No pulmonary or pleural based abnormality is identified. Heart and mediastinum: The h eart size is normal for technique. The mediastinal contours are normal. Bones and soft tissues: No a cute bony abnormality is identified. No acute soft tissue abnormality is identified. IMPRESSION: 1. No acute cardiopulmonary abnormality. [place] SECTION: ER Chest 2 views DX Study: 2 view chest compared to 11/06/2016. 09/2016 [facility] History: Chest pain and cough Comments: The trachea is midline. The cardiomediastinal si lhouette is normal in size. No pneumonia. No pleural effusions or pneumothorax. Impression: No acute cardiopulmonary disease. 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 Cardiac silhouette is not enlarged. Coronary artery calcification or stent is noted. Uncoiling of the thoracic a mamie is noted associated with vascular calcification at the arch. There is no acute consolidation or pleural fluid collection noted. Marginal spurring is noted at the thoraci c spine. Lungs are hyperexp anded compatible with chronic obstructive pulmonary disease. IMPRESSION:Lungs are hyperex panded compatible with chronic obstructive pulmonary disease; otherwise, no acute cardiopulmonary process and no significant interval change from the previous exam. SL: NADEGE-PC Spine lumbar w/wo MRI OF THE LUMBAR SPINE WITHOUT AND WITH CONTR AST 10/10/[address] [facility] contrast MRI DATE: 10/10/2016 at 4:27 PM. Cent er COMPARISON: CT abdomen and pelvis 03/24/2015. HISTORY: Pain with neurologi tony manifestation, IV drug abuse, bilateral lower extremity numbness. TECHNIQUE: Pre and postcontr ast multiplanar MR imaging was performed utilizing T1 and T2 weighting. 10 cc of Dotarem contrast was administered intravenously. FINDINGS: Again noted is a g rade I, 7.9 mm degenerative spondylolisthesis of L4 upon L5. There is no spondylolysis. The lumbar vertebrae are intact and in otherwise anatomic alignment. Edematous and scl erotic degenerative endplate change is again not ed at L5-S1. T11-T12 to L1-L2: The interv ertebral discs are well-maintained. There are no disc bulges or disc protrusions. There is no compromise of the spinal canal or the neural foramina. L2-L3: There is a mild disc bulge indenting the ventral thecal sac and combining with ligamentum flavum hypertrophy to cause mild stenosis of the spinal canal, and mild bilateral neural foraminal stenosis. L3-L4: There is a high T2 si gnal left foraminal annular tear, and a mild disc bulge combining with facet and ligamentum flavum hypertrophy to cause moderate stenosis of the spinal canal, and mild bilateral neural foraminal stenosis. L4-L5: A diffuse disc bulge and pseudobulge combining with spondylolisthesis and facet and ligamentum flavum hypertrophy to cause marked stenosis of the spinal canal, and moderate bilateral neural foraminal stenosis. L5-S1: There is a mild disc bulge indenting the ventral thecal sac causing mild stenosis of the spinal canal, and mild bilateral neural foraminal stenosis. The signal within the lower thoracic spinal cord is normal. There is no abnormal contrast enhancement. There is no epidural abscess. There is no discitis or osteomyelitis. There are no paraspinal collections. IMPRESSION: 1. Grade I, 7.9 mm degenerat trini spondylolisthesis of L4 upon L5 combining with disc bulge and pseudobulge and facet and ligamentum flavum hypertrophy to cause marked stenosis of the spinal canal, and moderate bilateral neural foraminal stenosis. 2. Disc bulge at L3-L4 combi haven with facet and ligamentum flavum hypertrophy to cause moderate stenosis of the spinal canal, and mild bilateral neural foraminal stenosis. 3. Disc bulge at L2-L3 causi ng mild stenosis of the spinal canal, and mild bilateral neural foraminal stenosis. 4. Disc bulge at L5-S1 causi ng mild stenosis of the spinal canal, and mild bilateral neural foraminal stenosis. 5. No spinal infection ident ified. There is no discitis or osteomyelitis. There is no epidural or paraspinal abscess. Spine Thoracic w/wo MRI OF THE THORACIC SPINE WITHOUT AND WI TH CONTRAST 10/10/[address] [facility] contrast MRI DATE: 10/10/2016 at 4:27 PM. Cent er HISTORY: Pain with neurologi tony manifestation, IV drug abuse, bilateral lower extremity numbness. TECHNIQUE: Pre and postcontr ast multiplanar MR imaging was performed utilizing T1 and T2 weighting. 10 cc of Dotarem contrast was administered intravenously. FINDINGS: The thoracic verte brae are intact and in normal anatomic alignment. There is normal marrow signal arising from visualized osseous structures. C6-C7, C7-T1: There are mild disc bulges indenting the ventral thecal sac causing mild stenosis of the spinal canal. There is no neural foraminal compromise. T1-T2: There is a mild broad -based central disc bulge/protrusion asymmetric to the left causing mild stenosis of the spinal canal, and mild bilateral neural foraminal stenosis. T2-T3: The intervertebral di sc is well maintained. There is no disc bulge or disc protrusion. There is no compromise of the spinal canal or the neural foramina. T3-T4: There is a mild disc bulge indenting the ventral thecal sac minimal stenosis of the spinal canal. There is no neural foraminal compromise. I8-T1-Q54-L1: The interverte bral discs are well-maintained. There are no disc bulges or disc protrusions. There is no compromise of the spinal canal or the neural foramina. L1-L2: There is a mild disc bulge indenting the ventral thecal sac and combining with ligamentum flavum hypertrophy to cause mild stenosis of the spinal canal. The signal within the thorac ic spinal cord is normal. There is no abnormal contrast enhancement. IMPRESSION: 1. Disc bulges from C6-C7 to T1-T2 causing mild stenosis of the spinal canal. 2. Mild disc bulge at T3-T4 causing mild stenosi s of the spinal canal. 3. There is no other signifi cant compromise of the spinal canal or neural foramina. There is no evidence of discitis or osteomyelitis or epidural abscess. Chest 2 views DX EXAM: XR CHEST 2 VIEWS 10/10/[address] 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 TECHNIQUE: PA and lateral chest radiographs FINDINGS: Lines, tubes and hardware: None. Lungs and pleura: No pulmonary or pleural bas ed abnormality is identified. Heart and mediastinum: The h eart size is normal for technique. The mediastinal contours are normal. Bones: No acute bony abnormality is identified. IMPRESSION: No acute cardiopulmonary abnormalit y. Chest 2 views DX Chest 2 views DX 09/14/2016 [facility] [place] nn CLINICAL HISTORY: Cough and fever COMPARISON: 03/11/2016 FINDINGS: SUPPORT DEVICES: none LUNGS: Mild pulmonary hyperi nflation. No consolidation or any significant effusion. No pneumothorax is evident. CARDIOVASCULAR: Cardiac silh ouette size is normal. Pulmonary vasculature is within normal limits. MEDIASTINUM/ROBYN: Trachea is midline. No contour abnormality is noted. OSSEOUS STRUCTURES: No significant bony abnormal ity is noted. SOFT TISSUES: No significant soft tissue abnorma lity is noted. IMPRESSION: No acute abnormality is noted in the chest. SL: DIAMOND Brain wo contrast CT CT HEAD WITHOUT CONTRAST 04/14/[address] [facility] DATE: 04/14/2016 at 12:[address] COMPARISON: 09/04/2015.. HISTORY: Acute cognitive change. TECHNIQUE: Contiguous axial images of the brain were obtained without intravenous contrast administration. Sagittal and coronal reformats were also provided. DLP: 1154.37 mGy-cm. FINDINGS: There are no acute hemorrhag es or acute infarcts. The allen-white interfaces are well defined. Low density is again noted w ithin the periventricular white matter consistent with chronic small vessel ischemic disease. There are no acute bony abno rmalities. The calvarium is intact. Atherosclerotic calcification is noted within the conway of the bilateral cavernous internal carotid arteries. Prosthetic lenses are noted within both globes consistent with prior catarac t surgery. IMPRESSION: 1. No acute intracranial abnormality. 2. White matter hypodensity consistent with chronic small vessel ischemic disease. 3. Arterial atherosclerosis. Resident preliminary report by Dr. Biju Bernard: No acute intracranial abnormality Stable sequelae of chronic microvascular disease. Chest Pulmonary Study: Chest Pulmonary Embolism CTA 03/11/2016 [facility] Embolism CTA Age: 65 years y/o Female Clinical Indication: Chest pain; chest pain - ? PE, ? dissection Comparison: 03/05/2015 TECHNIQUE: Sequential trans- axial images were obtained thru the chest and upper abdomen after administration of iodinated contrast. Coronal and sagittal reconstructions were obtained. 100 cc of nonionic contrast material was used for the exam. Dose: DLP = 176 mGy-cm FINDINGS: LUNG PARENCHYMA AND PLEURA: There are no lung nodules. There is no significant interstitial lung disease. There are no pleural effusions. There is no pneumothorax. AIRWAY: The central airway is normal. MEDIASTINUM: No significant mediastinal lymphade nopathy. HEART: There is no evidence of RV strain. The cardiac chambers are otherwise unremarkable. There is no pericardial effusion. VASCULAR STRUCTURES: There a re no segmental pulmonary emboli noted. The main, right and left pulmonary arteries are grossly normal. The great vessels are unremarkable. The thoracic aorta is free of an eurysm or dissection. Dense calcification is present in the aortic arch.. The superior vena cava is unremarkable. Calcific coronary atherosclerosis is noted. OSSEOUS STRUCTURES: Generally decreased bone min eral density. VISUALIZED UPPER ABDOMEN: Th e visualized upper abdomen is within normal limits. IMPRESSION: 1. Calcific atherosclerotic vascular disease of the aorta and coronary arteries. 2. Generally decreased bone mineral density. 3. Stable appearance of mild fusiform widening of the left main pulmonary artery noted on previous exams. SL: [id number] Abdomen AP DX Clinical Indication: Vomiting; 03/11/2016 [facility] Comparison: None 1 view abdomen Nonobstructive bowel gas pat tern. Moderate amount of stool throughout the colon. No pathologic calcifications are evident. IMPRESSION: Negative. SL: [id number] Chest 1view DX Chest 1view DX 03/11/2016 [facility] CLINICAL HISTORY:Chest pain COMPARISON: 02/29/2016 FINDINGS: Limited AP portable study. Lungs are reasonably well in flated. No consolidation, effusion or pneumothorax. Trachea is midline. Cardiomediastinal silhouette is within normal li mits. No pulmonary edema. No significant bony abnormality is noted. IMPRESSION: No acute abnormality is noted in the chest. SL: [id number] Chest 2 views DX Study: Chest 2 views DX 02/29/2016 [facility] Age Female 65 years old Clinical Indication: Chest pain; Comparison: 09/03/2015 Technique: PA and lateral chest radiographs were performed. (2 views) FINDINGS: LUNGS: Normal lung volumes a re noted. There are no infiltrates or airspace opacities. There are no pleural effusions or pneumothorax. HEART AND MEDIASTINUM: The heart size and pulmonary vessels appear within normal limits. Calcific atherosclerotic vascular disease is not ed in the thoracic aorta. OSSEOUS STRUCTURES: Within normal limits. IMPRESSION: 1. No acute abnormality noted. SL: [id number] Brain wo contrast CT CLINICAL HISTORY: Vertigo. 09/04/2015 [facility] CT brain without contrast. Comparison 05/02/2015 Extensive chronic periventri cular white matter might last ischemic changes. No acute cortical infarct, intracranial hemorrhage, mass mass effect or pathologic extra-axial fluid. Isolated dilatation of t he temporal horn of the righ t lateral ventricle is unchanged from previous. No hydrocephalus. Visualized skull and paranasal sinuses otherwise unremarkable. IMPRESSION: Extensive chroni c white matter changes as before. No acute finding. SL: 14 Chest 1view DX CHEST RADIOGRAPH SINGLE VIEW 09/03/2015 [facility] INDICATION: Dyspnea COMPARISON: Chest radiograph 07/15/2015 IMPRESSION: No acute intrathoracic abnormalities are visuali zed. SL: 16 Chest 1view DX NAME: LUCIUS YEPEZ 07/15/2015 [facility] : 1950 SEX: F 8 Ordering Physician: Angela Maher Portable Chest 1view : Jul 15, 2015 02:49:00 PM. CLINICAL INDICATION: Chest pain and shortness o f breath Comparison Examination: 05/18/2015. FINDINGS: Bilateral cervical ribs, lar jacqueline on the right. Degenerative changes in the glenohumeral joints. Generalized bony osteopenia. Coronary artery stent. The l stan parenchyma, cardiac silhouette, and pulmonary vasculature are normal. Tortuous and partially calcified aorta. No large collections of pleural fluid. IMPRESSION: No acute disease in the chest. SL: 14 Chest 1view DX EXAM: CHEST 1 VIEW 05/18/2015 [facility] DATE: May 18, 2015 01:38:00 PM INDICATION: Chest pain COMPARISON: Chest radiograph 05/09/2015 TECHNIQUE: Single AP view of the chest FINDINGS: The lungs are hugo ar. The costophrenic sulci are sharp without effusion. The heart size and mediastinal contours are within normal limits. Aortic calcifications are present. IMPRESSION: No acute cardiopulmonary disease daniel ntified. Chest 2 views DX EXAM: CHEST 2 VIEWS 05/09/2015 [facility] DATE: May 09, 2015 12:41:00 PM INDICATION: Chest pain COMPARISON: Chest 2 views April 2015 TECHNIQUE: Frontal and lateral chest radiographs FINDINGS: The heart size is within normal limits. The lungs are clear. The costophrenic sulci are sharp without effusion. There are coronary artery stents. The osseous structures are unremarkable. IMPRESSION: Unchanged exam without acute intrat horacic abnormality. Brain wo contrast CT EXAM: CT of the brain without contrast. 11/2014 [facility] DATE: 05/02/2015 CLINICAL HISTORY: Head trauma. COMPARISON: CT 02/25/2015. TECHNIQUE: Axial images of t marlene brain were obtained in a helical scanner from the skullbase through the vertex without contrast material administration. DISCUSSION: Hypodensities in the suprate ntorial white matter secondary to small vessel disease. No acute hemorrhage, hydrocephalus or midline shift. Stable appearance of the asymmetric prominence of the right tempo ral horn of the lateral vent ricle. No acute bony lesions and the paranasal sinuses are clear. IMPRESSION: No acute intracranial abnormality. Chest 2 views DX EXAM: CHEST 2 VIEWS 05/02/2015 [facility] DATE: May 02, 2015 05:44:24 PM INDICATION: Chest pain COMPARISON: Chest radiograph 03/21/2015 TECHNIQUE: Frontal and lateral chest radiographs FINDINGS: The heart size is within normal limits. The lungs are clear. The costophrenic sulci are sharp without effusion. The osseous structures are unremarkable. IMPRESSION: No acute abnormality identified. Knee 3 views DX HISTORY: [facility], [facility]. No fracture subluxation or acute abnormality. No significant joint effusion. IMPRESSION: Negative. SL:14 Spine lumbar series CLINICAL HISTORY: Pain post trauma. 04/11/[address] [place] [address] DX Lumbar spine [address] abdomen and pelvis 03/24/2015. Grade 1 anterolisthesis of L 4 upon L5. Advanced degenerative spondylosis with disc space narrowing at L4-L5 and L5-S1. No fracture or acute subluxation otherwise appreciated. IMPRESSION: Chronic degenera tive spondylosis. L4-L5 anterolisthesis, unchanged from 03/24/2015. No other acute finding. SL:14 Shoulder series DX Examination: Right shoulder, 3 views 03/30/[address] [place] [address] History: Pain from a fall Comparison: None. Findings: Multiple views of the right shoulder show no acute bony fracture or joint dislocation. Bones are demineralized. Severe glenohumeral joint osteoarthrosis is seen. Soft tissues are unremarkable. IMPRESSION: No acute bony abnormality of the rig ht shoulder. SL: 16 Abdomen/Pelvis w IV EXAMINATION: CT of the abdomen and pelvi s with contrast 03/24/2015 [facility] contrast CT HISTORY: Abdominal pain, acute COMPARISON: CTA runoff from 02/24/2015. DLP: 1125.30 TECHNIQUE: Multiple transaxi al images through the abdomen and pelvis were acquired following administration of intravenous contrast material. Oral contrast was administered. Multiplanar reformatted images were performed. FINDINGS: The lung bases are clear bilaterally. Punctate 2 mm calyceal stone s in the bilateral kidneys are seen. Liver, gallbladder, pancreas, spleen, and adrenal glands are unremarkable. No intrahepatic or extra hepatic biliary duct dilatation is se en. Bladder is well-distende d. 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 The visualized hollow viscera and appendix are without focal abnormality. No intraperitoneal free air, free fluid, or pathologic adenopathy is seen. Arterial calcifications are seen. Superficial soft tissues are unremarkable. Advanced degenerative changes of the lower lumbar spine are seen. IMPRESSION: 1. No acute intra-abdominal/pelvic abnormality. 2. Nonobstructive bilateral nephrolithiasis. SL: 16 Chest 2 views DX CHEST RADIOGRAPH 2 VIEWS 03/21/2015 [facility] INDICATION: Chest pain COMPARISON: Chest radiograph 03/11/2015 IMPRESSION: The cardiac silhouette and pulmonary vasculature are within normal limits. No consolidation, pleural effusion, or pneumotho rax are visible. SL: 16 Chest 1view DX Examination: Chest x-ray, single view 03/11/2015 [facility] History: Chest pain Comparison: 03/05/2015 Findings: Cardiac silhouette is normal in size. Mild interstitial edema is seen. There is no pleural effusion or pneumothorax. Coronary artery stent is noted. Osseous structures are stable. IMPRESSION: Mild pulmonary edema SL: 16 Chest Pulmonary EXAM: CTA CHEST WITH CONTRAST 03/05/2015 [facility] DATE: 03/05/2015 at 0321 INDICATION: Chest pain COMPARISON: CT chest dated 12/16/2013, 06/01/2012 TECHNIQUE: Following intrave nous administration of 80 cc Omnipaque 350, the chest was scanned from bases to the apices according to the PE protocol. Multiplanar reformatted images (MPR) in the sagittal, coronal and oblique images as well as maximal intensity projection (MIP) images were reviewed. FINDINGS: NECK BASE: The thyroid gland is unremar kable. No supraclavicular lymphadenopathy is demonstrated. VASCULAR/CARDIAC/MEDIASTINUM: Scattered atherosclerotic ca lcifications are seen about the thoracic aorta. The left common carotid artery arises with the right innominate artery. This is a normal variant. Measurements of the ascendin g and descending aortic arch at the level of the pulmonary trunk are within normal limits (2.6 cm, 2.3 cm respectively). The pulmonary trunk measures 1.9 cm. The right pulmonary artery measures 1.6 cm o n image 83. A left pulmonary artery measures 2.1 cm on image 78. Heart size is within normal limits. Stenting in the LAD is noted. There is coronary artery calcification along the left circumflex distribution. No pericardial effusion is seen. No filling defects are seen in the segmental or larger pulmonary arteries. LUNGS/PLEURA/AIRWAYS: No large focal airspace cons olidation is seen. There is mild paraseptal emphysema. Dependent changes are demonstrated in the lung bases. A few subcentimeter pulmonar y nodules are again demonstrated, such as in the right upper lobe on images 42 and 50. These are stable since November 2013. A 3 mm nodule in the left upper lobe is seen on image 71, which is stable since 06/01/2012. There is mild diffuse bronch ial wall thickening. The airways are patent without evidence for endobronchial lesion. No pleural effusion or pneumothorax. LYMPH NODES: No mediastinal, hilar, or axillary lymphadenopat hy is demonstrated. BONES/SOFT TISSUES: Degenerative changes are see n in the bilateral shoulders. No focal destructive bony lesions are demonstrated. UPPER ABDOMEN: Punctate nonobstructing righ t renal calculus or vascular calcification is noted. No acute findings in the upper abdomen. IMPRESSION: 1. No evidence for pulmonary embolus. 2. Mild bilateral peribronch ial wall thickening, which may indicate bronchitis. 3. 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 4. Calcified and noncalcifie d atherosclerotic plaque in the thoracic aorta. Coronary artery disease. 5. Mild finding of paraseptal emphysema. 6. A few subcentimeter pulmo nary nodules, which are stable compared to prior exams. Chest 1view DX EXAM: XR CHEST 1 VIEW 03/05/2015 [facility] DATE: Mar 05, 2015 01:09:00 AM INDICATION: Chest pain COMPARISON: X-ray chest 02/24/2015 TECHNIQUE: Single AP view of the chest DISCUSSION: No pulmonary or pleural based abnormality is identified. Heart size is normal, and note again made of a coronary artery stent and atherosclerotic disease in the aortic arch. No acute bony ab normality is identified. Deg enerative changes are seen about the right glenohumeral joint. IMPRESSION: 1. No acute cardiopulmonary abnormality identifi ed. 2. Right glenohumeral osteoarthritis. Brain w/wo contrast MRI BRAIN WITH AND WITHOUT CONTRAST: 015 [facility] CLINICAL HISTORY: Mass/Tumor. TECHNIQUE AND FINDINGS: A routine multiplanar MRI of the brain was performed with and without intravenous contrast on a 1.5 vi magnet. Imaging sequences include sagittal T1 localizer, coronal FLAIR, axial T2 FSE, axial prot on density FSE, axial diffus ion weighted, axial precontrast T1, and postcontrast T1 weighed images in the axial, coronal, and sagittal planes. COMPARISON: CT 02/24/2015. 1. The brain volume and vent ricle size are appropriate for age. Mild asymmetric dilatation of the right temporal horn is present some are to CT findings 2. Nonspecific abnormal sign al within the periventricular deep white matter and subcortical white matter is greater than expected for the lack of atrophy present. 3. The diffusion weighted im ages are negative without evidence of increased signal to suggest acute ischemia. 4. The major intracranial flow voids are patent. 5. The post contrast images demonstrate no defin ite abnormal enhancement. 6. The pituitary gland size and midline structur es are normal. 7. Suspected old right medial orbital wall fract ure or dehiscence. IMPRESSION: 1. Prominent nonspecific non enhancing abnormal signal in the periventricular deep white matter and subcortical white matter may represent old ischemic change, but is somewhat greater than expected. Clin ical correlation is required to exclude the possibility of a demyelinating process or vasculitis. 2. No evidence of an enhanci ng lesion is seen in the right frontoparietal white matter as suggested on prior CT. 3. Stable slight asymmetric dilatation of the right temporal horn similar to CT findings. Findings may be developmental in nature or related to occult mesial temporal sclerosis or volume loss in the rig ht hippocampus. Clinical correlation is required to exclude a seizure focus. SL:17 Abdominal Aorta with CTA Aortogram and Bilateral Lower Extremity Runoff, [id number] at 2148. 02/24/2015 [facility] runoff CTA CLINICAL HISTORY: 64-year-ol d female; back pain, with the right hip with walking TECHNIQUE: 0.625 mm thick ax ial images of the abdomen, pelvis, and bilateral lower extremities are obtained with IV contrast via arteriographic protocol. 5 mm thick axial reconstructions were created. C oronal and sagittal reformat ions were created. Three-dimensional reconstructions were created at an independent workstation. COMPARISON: CTA chest May 2012. FINDINGS: Aorta: Moderate scattered mixed svitlana que formation is noted in the distal abdominal aorta. Just inferior to the SEEMA origin, a 30 to 40% short segment endoluminal stenosis is present secondary to mixed plaque for mation in visualized lower d escending thoracic aorta and upper dominant reveal mild scattered mixed plaque formation. No abdominal aortic aneurysm, focal ectasia, or dissection is present. Proximal mazin ac artery reveals a endolumi nal stenosis approaching 75% that is not secondary to atherosclerotic plaque formation, but probably secondary to the impressing diaphragmatic hussein. However, no significant p oststenotic dilatation is pr esent. Otherwise, celiac axis, SMA, SEEMA, bilateral main single renal arteries are patent there respective distal perfusional territories. Visualized lung bases demons trate mild dependent subsegmental atelectasis. Heart size is normal. Liver, spleen, pancreas, adrenal glands, kidneys are grossly normal. Ureters and partially distended blad josias are unremarkable. Small hiatal hernia is present. Remaining gas intestinal tract is grossly unremarkable. Normal appendix is present. Uterus contains multiple fibroids and L5/S1 degenerative disc di sease is present. Mild grade 1 degenerative L4 over L5 anterolisthesis in combination with ligamenta flava calcified hypertrophy this level, severe spinal canal stenosis is present. Right lower extremity: Mild to moderate calcified p laque is present in the common iliac the common femoral arteries. Otherwise, no plaque formation is visualized in the remaining right lower extremity arterial system. Normal right leg three-vessel runof f is present. Severe right hip osteoarthritis is present. Remaining musculoskeletal tissues are unremarkable. Left lower extremity: Mild to moderate calcified p laque is present in the common iliac artery. Otherwise, no plaque formation is visualized the remaining left lower extremity arterial system. Normal left leg three-vessel run off is present. Severe left hip osteoarthritis is present. Remaining musculoskeletal tissues are unremarkable. IMPRESSION: 1. Negative for abdominal ao rtic aneurysm, focal ectasia, or dissection. Distal abdominal aortic moderate mixed plaque formation creating a 30 to 40% short segment endoluminal stenosis, and therefore of no hemodynamic significance. 2. Right lower extremity: no significant atheromatous plaque formation or stenosis. 3. Left lower extremity: no significant atheromatous plaque formation or stenosis. 4. L4/5 severe spinal canal stenosis secondary to mild grade 1 degenerative L4 over L5 anterolisthesis in combination with bilateral ligamenta flava calcified hypertrophy. 5. L5/S1 degenerative disc disease. 6. Severe bilateral hip osteoarthritis. SL: 14 Chest 2 views DX Chest 2 views. 02/24/2015 [facility] COMPARISON: 02/16/2015 FINDINGS: Mild scarring is n oted at the lung bases. The lungs are otherwise clear and well inflated. There are no effusions or other pleural abnormalities. The cardiomediastinal silhou ette and the pulmonary vasculature are within normal limits. No significant bony abnormality is noted. Various EKG leads and wires project over the patient's chest. IMPRESSION: No acute abnormality is noted in the chest. SL:13 Spine cervical 2 or 3 THREE-VIEW CERVICAL SPINE: 02/24/2015 [facility] view DX DISCUSSION: No older studies available for francoise childress. 2.4 mm anterior subluxation of C5 on C6. 1.6 mm anterior subluxation of C7 on T1. No fractures identified. Narrowing of the C3-C4 and C5-C6 through C7-T1 disc spaces. Some loss in height of the C4 throu gh C6 vertebral bodies is li doug degenerative in nature. Anterior and posterior marginal osteophytes are scattered throughout the spine. Degenerative changes scattered in the facet and uncovertebral joints. Normal C1-C2 articulation. Right cervical rib. Findings consistent with right extracranial carotid artery calcifications. IMPRESSION: Multilevel subluxations and disc space narrowing . SL: [address] NAME: LUCIUS YEPEZ 02/24/2015 [facility] : 1950 SEX: F 08 Ordering Physician: Lyubov Bryan Brain wo contrast CT : Feb 24, 2015 12:30:00 PM. CLINICAL INDICATION: Headache with Dizziness an d Giddiness. Comparison Examination: None. FINDINGS: Left vertebral and bilateral carotid artery calcification. There is slight dilatation of the right temporal horn. No other enlargement of the ventricular system is identified. There is patchy areas of d ecreased density about the f rontal white matter bilaterally, corea radiata bilaterally and centrum semiovale bilaterally that could represent small vessel changes or nonspecific demyelinating process. There is a small low-density area in the right high frontal parietal white matter that may represent area of old infarction but nonspecific area of demyelination or edema associated with a mass cannot b e excluded. Recommend MRI br ain with and without contrast for further evaluation. No other abnormal areas of density identified about the brain. Bone windows were obtained and no bony fracture was ident ified. No extra-axial fluid collection, mass eff ect or shift. CONCLUSIONS: 1. Intracranial vascular calcification as above. 2. Small vessel changes versus nonspecific demye linating process. 3. Small low-density area in the right high frontal parietal white matter. See above discussion and recommend brain MRI with and without contrast for further evaluation. 4. Slight dilatation of the right temporal horn. SL: 14 Chest 1view DX EXAM: CHEST 1 VIEW 02/16/2015 [facility] DATE: Feb 16, 2015 06:21:07 PM INDICATION: Chest pain COMPARISON: None. TECHNIQUE: AP chest radiograph. FINDINGS: Lungs are clear bilaterally without effusion. Cardiac silhouette is not enlarged. Aorta is mildly ectatic. Aortic arch calcifications are seen.. Coronary artery stent is seen. Right shoulder degenerative changes are noted. IMPRESSION: 1. No acute intrathoracic abnormality SL: 12 Chest 1view PROCEDURE: Chest 1view 12/22/2013 [facility] REASON FOR EXAM: See Clinic Indication CLINICAL INDICATION: Chest pain COMPARISON: 12/16/2013. FINDINGS: No acute process. No focal consolidation, pleural effusion, or pneumothorax. Stable cardiac silhouette and mediastinum. Tortuous atherosclerotic thoracic aorta. SL: 12 Chest Pulmonary EXAM: CTA CHEST WITH CONTRAST 12/16/2013 [facility] DATE: 12/16/2013 at 1600 hours INDICATION: 63-year-old female with chest pain. COMPARISON: Chest radiograph from 12/16/2013 and CTA of the chest from 06/01/2012. TECHNIQUE: Following intrave nous administration of 60 mL of Omnipaque 350, without adverse reaction, the chest was scanned from bases to the apices according to the PE protocol. Multiplanar reformatted images (MPR) in the sagittal , coronal and oblique images as well as maximal intensity projection (MIP) images were reviewed. FINDINGS: The heart is normal in size with a cardiothoracic ratio of 10:24.3 cm. No pericardial effusion is identified. Atherosclerotic calcifications are noted within the coronary arteries and thoracic aorta. Th ere is a mild amount of cont rast reflux into the azygous and hemiazygous veins. No stenosis or occlusion of the left brachiocephalic vein or superior vena cava is identified. There is a small amount of r eflux of contrast into the inferior vena cava suggesting an element of right heart failure. The right atria and ventricle do not appear enlarged and there is no bowing of the interventricular septum. Measurements of the pulmonar y trunk, right and left pulmonary arteries are normal. There is no pulmonary embolus. There is no hilar, mediastin al, axillary or internal mammary lymphadenopathy. Multiple scattered mediastinal lymph nodes are seen, none of which are enlarged by CT size criteria. Most of the multiple tiny pu lmonary nodules seen in the upper lobes on CT 06/01/2012 are no longer identified. There is one 3 mm groundglass nodule in the right upper lobe on series 5, image 37 which is again identified and stable in size. Minimal dependent atelectasis is seen at the lung bases. No consolidation or pleural effusion is identified. The trachea and central bron chi are clear. Mild bronchial wall thickening is identified, suggestive of bronchitis. Asymmetric soft tissue densi ty in the right breast is unchanged from 06/01/2012. No acute abnormality of the chest wall soft tissues is identified. No destructive or sclerotic skeletal lesions are identified. Moderate to severe joint space narrowing and subchondral cystic formation is noted at the glenohumeral joints. The thyroid is normal. A small hiatal hernia is seen, otherwise the imaged portions of the upper abdomen are unremarkable. IMPRESSION: 1. No pulmonary embolism. 2. Mild bronchial wall thickening, suggestive of bronchitis. 3. Extensive atherosclerotic calcifications of the coronary arteries and thoracic aorta. 4. Most of the previously se en tiny pulmonary nodules are no longer identified, one 3 mm groundglass nodule remains in the right upper lobe which is stable in size since 06/01/12. Chest 2 views EXAM: XR CHEST 2 VIEWS 12/16/2013 [facility] DATE: 12/16/2013 at 1341 hours INDICATION: Chest pain COMPARISON: Chest x-ray dated November 08, 2013 TECHNIQUE: Frontal and lateral chest radiographs DISCUSSION: No pulmonary or pleural based abnormality is identified. Coronary artery calcifications with aortic calcifications. Pulmonary vascularity is normal. The cardiomediastinal silhouette is norm al. No acute bony abnormalit y is identified. Chronic post traumatic degenerative changes of the right shoulder girdle. IMPRESSION: 1. No acute cardiopulmonary abnormality identifi ed. 2. Coronary artery calcifications with aortic ca lcifications. Consultation Notes No Data Provided for This Section Discharge Summaries No Data Provided for This Section History and Physicals No Data Provided for This Section Vital Signs Vital Sign Value Date Comments Source Systolic (mm Hg) 125 01/19/2017 [facility] [facility] Diastolic (mm Hg) 70 01/19/2017 [facility] st Respitory Rate 16 01/19/2017 [facility] Systolic (mm Hg) 117 01/19/2017 [facility] t Diastolic (mm Hg) 66 01/19/2017 [facility] st Respitory Rate 18 01/19/2017 [facility] Respitory Rate 16 01/19/2017 [facility] Systolic (mm Hg) 133 01/19/2017 [facility] t Diastolic (mm Hg) 68 01/19/2017 [facility] Weight 45.455 01/19/2017 [facility] BMI Calculated 19.57 01/19/2017 [facility] Height 152.4 cm 01/19/2017 [facility] Temperature Oral (F) 97.0 F 01/19/2017 [place] [facility] [facility] Rate 60 01/19/2017 [facility] Systolic (mm Hg) 118 01/17/2017 [facility] Diastolic (mm Hg) 71 01/17/2017 [facility] Respitory Rate 21 01/17/2017 [facility] Systolic (mm Hg) 136 01/17/2017 [facility] Diastolic (mm Hg) 71 01/17/2017 [facility] Respitory Rate 20 01/17/2017 [facility] Temperature Oral (F) 98.1 F 01/17/2017 [facility] Systolic (mm Hg) 129 01/17/2017 [facility] Diastolic (mm Hg) 74 01/17/2017 [facility] Respitory Rate 18 01/17/2017 [facility] Heart Rate 79 01/16/2017 [facility] Temperature Oral (F) 98 F 01/16/2017 [facility] Weight 45.455 01/16/2017 [facility] [place] Heart Rate 89 11/29/2016 [facility] Systolic (mm Hg) 119 11/29/2016 [facility] Diastolic (mm Hg) 62 11/29/2016 [place] [facility] Respitory Rate 18 11/29/2016 [place] Temperature Oral (F) 98.7 F 11/29/2016 [place] Heart Rate 90 11/29/2016 [place] Respitory Rate 18 11/29/2016 [place] Systolic (mm Hg) 113 11/29/2016 [facility] [place] Diastolic (mm Hg) 66 11/29/2016 [place] Heart Rate 93 11/29/2016 [place] Respitory Rate 18 11/29/2016 [place] Systolic (mm Hg) 118 11/29/2016 [place] Diastolic (mm Hg) 61 11/29/2016 [facility] [place] Weight 50 11/29/2016 [place] BMI Calculated 21.53 11/29/2016 [place] Height 152.4 cm 11/29/2016 [place] Temperature Oral (F) 98.6 F 11/29/2016 [place] Respitory Rate 16 11/07/2016 [place] Heart Rate 84 11/07/2016 [place] Temperature Oral (F) 98.2 F 11/07/2016 [place] Systolic (mm Hg) 122 11/07/2016 [place] Diastolic (mm Hg) 72 11/07/2016 [place] [facility] Heart Rate 88 11/07/2016 [place] Respitory Rate 16 11/07/2016 [place] Systolic (mm Hg) 98 11/07/2016 [place] Diastolic (mm Hg) 62 11/07/2016 [place] [facility] Weight 56.818 11/06/2016 [place] Heart Rate 96 11/06/2016 [place] Temperature Oral (F) 98.3 F 11/06/2016 [place] Respitory Rate 16 11/06/2016 [place] Systolic (mm Hg) 123 11/06/2016 [place] Diastolic (mm Hg) 70 11/06/2016 [place] Respitory Rate 18 10/11/2016 [facility] Temperature Oral (F) 97.9 F 10/11/2016 [facility] Systolic (mm Hg) 99 10/11/2016 [facility] Diastolic (mm Hg) 57 10/11/2016 [facility] Heart Rate 51 10/11/2016 [facility] Heart Rate 56 10/11/2016 [facility] Systolic (mm Hg) 125 10/11/2016 [place] [facility] Diastolic (mm Hg) 63 10/11/2016 [facility] Temperature Oral (F) 98.1 F 10/11/2016 [facility] [place] Temperature Oral (F) 99.0 F 10/11/2016 [facility] Respitory Rate 16 10/11/2016 [facility] Heart Rate 72 10/11/2016 [facility] Systolic (mm Hg) 115 10/11/2016 [facility] Center Diastolic (mm Hg) 56 10/11/2016 [facility] Weight 50 10/11/2016 [facility] BMI Calculated 21.53 10/11/2016 [facility] Center Height 152.4 cm 10/11/2016 [facility] Respitory Rate 19 10/11/2016 [facility] Height 152.4 cm 10/10/2016 [facility] BMI Calculated 21.53 10/10/2016 [facility] Weight 50 10/10/2016 [facility] BMI Calculated 21.53 09/15/2016 [facility] Weight 50 09/15/2016 [facility] Height 152.4 cm 09/15/2016 [facility] Systolic (mm Hg) 129 09/15/2016 [facility] Diastolic (mm Hg) 72 09/15/2016 [place] Respitory Rate 18 09/15/2016 [facility] Heart Rate 66 09/15/2016 [facility] Temperature Oral (F) 98.5 F 09/15/2016 [place] Respitory Rate 18 04/14/2016 [facility] [place] Temperature Oral (F) 98.7 F 04/14/2016 [facility] Systolic (mm Hg) 120 04/14/2016 [facility] Center Diastolic (mm Hg) 88 04/14/2016 [facility] Heart Rate 79 04/14/2016 [facility] BMI Calculated 21.53 04/14/2016 [facility] Weight 50 04/14/2016 [facility] Temperature Oral (F) 99.2 F 04/14/2016 [facility] Height 152.4 cm 04/14/2016 [facility] Respitory Rate 18 04/14/2016 [facility] Systolic (mm Hg) 110 04/14/2016 [facility] [place] [facility] Diastolic (mm Hg) 68 04/14/2016 [facility] Heart Rate 81 04/14/2016 [facility] Temperature Oral (F) 97.8 F 03/12/2016 [place] Heart Rate 55 03/12/2016 [place] Respitory Rate 17 03/12/2016 [place] Systolic (mm Hg) 130 03/12/2016 [place] Diastolic (mm Hg) 70 03/12/2016 [place] Respitory Rate 16 03/12/2016 [place] Systolic (mm Hg) 94 03/12/2016 [place] Diastolic (mm Hg) 59 03/12/2016 [place] Respitory Rate 18 03/12/2016 [place] Heart Rate 58 03/12/2016 [place] Temperature Oral (F) 98.2 F 03/12/2016 [place] Temperature Oral (F) 98.0 F 03/12/2016 [place] Heart Rate 68 03/12/2016 [place] Systolic (mm Hg) 106 03/12/2016 [place] Diastolic (mm Hg) 53 03/12/2016 [place] Height 152.4 cm 03/11/2016 [place] BMI Calculated 21.53 03/11/2016 [place] Weight 50 03/11/2016 [place] Respitory Rate 16 03/06/2016 [place] Systolic (mm Hg) 116 03/06/2016 [place] Diastolic (mm Hg) 79 03/06/2016 [place] Heart Rate 68 03/06/2016 [place] Temperature Oral (F) 98.1 F 03/06/2016 [place] BMI Calculated 21.53 03/05/2016 [place] Weight 50 03/05/2016 [place] Systolic (mm Hg) 111 03/05/2016 [place] Diastolic (mm Hg) 81 03/05/2016 [place] Heart Rate 67 03/05/2016 [place] Height 152.4 cm 03/05/2016 [place] Temperature Oral (F) 98.3 F 03/05/2016 [place] Respitory Rate 16 03/05/2016 [place] Respitory Rate 16 03/01/2016 [place] Systolic (mm Hg) 105 03/01/2016 [place] Diastolic (mm Hg) 65 03/01/2016 [place] Temperature Oral (F) 98.2 F 03/01/2016 [place] Heart Rate 87 03/01/2016 [place] Respitory Rate 12 02/29/2016 [place] Temperature Oral (F) 98.3 F 02/29/2016 [place] Heart Rate 81 02/29/2016 [place] Respitory Rate 18 02/29/2016 [place] Systolic (mm Hg) 112 02/29/2016 [place] Diastolic (mm Hg) 79 02/29/2016 [place] Resp[place] Rate 20 09/05/2015 [place] Systolic (mm Hg) 99 09/05/2015 [facility] Diastolic (mm Hg) 57 09/05/[address] [facility] st Heart Rate 91 09/05/2015 [facility] Weight 52.276 09/05/2015 [facility] Systolic (mm Hg) 102 09/05/2015 [place] Diastolic (mm Hg) 54 09/05/2015 [facility] st Respitory Rate 18 09/05/2015 [facility] Heart Rate 86 09/05/2015 [facility] Respitory Rate 20 09/05/2015 [facility] Systolic (mm Hg) 95 09/05/2015 [place] Diastolic (mm Hg) 49 09/05/[address] [facility] st Heart Rate 94 09/05/2015 [facility] Weight 50.92 09/04/2015 [facility] Weight 50.909 09/04/2015 [facility] BMI Calculated 19.88 09/04/2015 [facility] Height 160.02 cm 09/04/2015 [facility] Temperature Oral (F) 98.3 F 09/04/2015 [facility] Height 152.4 cm 09/04/2015 [facility] BMI Calculated 22.51 09/04/2015 [facility] Temperature Oral (F) 98.7 F 09/04/2015 [facility] Systolic (mm Hg) 105 07/16/2015 [place] Diastolic (mm Hg) 68 07/16/[address] Respitory Rate 18 07/16/2015 [facility] Heart Rate 65 07/16/2015 [facility] Temperature Oral (F) 98.0 F 07/16/2015 [facility] Systolic (mm Hg) 112 07/16/2015 [place] Diastolic (mm Hg) 70 07/16/[address] Respitory Rate 18 07/16/2015 [facility] Heart Rate 73 07/16/2015 [facility] Temperature Oral (F) 97.4 F 07/16/2015 [facility] Systolic (mm Hg) 131 07/16/2015 [place] Diastolic (mm Hg) 79 07/16/[address] Respitory Rate 18 07/16/2015 [facility] Heart Rate 62 07/16/2015 [facility] Temperature Oral (F) 97.9 F 07/16/2015 [facility] Height 152.4 cm 07/16/2015 [facility] Weight 50.1 07/16/2015 [facility] BMI Calculated 21.57 07/16/2015 [facility] Height 152.4 cm 07/15/2015 [facility] BMI Calculated 21.53 07/15/2015 [facility] Weight 50 07/15/2015 [facility] Weight 50 07/05/2015 [facility] Height 152.4 cm 07/05/2015 [facility] BMI Calculated 21.53 07/05/2015 [facility] Temperature Oral (F) 98.3 F 07/05/2015 [facility] Rate 18 07/05/2015 [facility] Heart Rate 91 07/05/2015 [facility] Systolic (mm Hg) 166 07/05/2015 [place] Diastolic (mm Hg) 82 07/05/[address] [facility] [address] BMI Calculated 23.48 07/04/2015 [facility] Weight 54.545 07/04/2015 [facility] Height 152.4 cm 07/04/2015 [facility] Temperature Oral (F) 97.9 F 07/04/2015 [facility] Respitory Rate 18 07/04/2015 [facility] Heart Rate 86 07/04/2015 [facility] Systolic (mm Hg) 98 07/04/2015 [facility] Diastolic (mm Hg) 74 07/04/2015 [facility] BMI Calculated 21.53 06/04/2015 [facility] Weight 50 06/04/2015 [facility] Height 152.4 cm 06/04/2015 [facility] Temperature Oral (F) 98.8 F 06/04/2015 [facility] Rate 20 06/04/2015 [facility] Heart Rate 81 06/04/2015 [facility] Systolic (mm Hg) 100 06/04/2015 [place] Diastolic (mm Hg) 69 06/04/[address] Systolic (mm Hg) 105 05/18/2015 [facility] Center Diastolic (mm Hg) 65 05/18/2015 [facility] Temperature Oral (F) 96.6 F 05/18/2015 [facility] Heart Rate 68 05/18/2015 [facility] Resp[facility] Rate 18 05/18/2015 [facility] Systolic (mm Hg) 115 05/18/2015 [facility] Diastolic (mm Hg) 79 05/18/2015 [facility] Systolic (mm Hg) 93 05/18/2015 [facility] Diastolic (mm Hg) 60 05/18/2015 [facility] Temperature Oral (F) 98.1 F 05/18/2015 [facility] Respitory Rate 17 05/18/2015 [facility] Temperature Oral (F) 98.2 F 05/18/2015 [facility] Heart Rate 68 05/18/2015 [facility] Respitory Rate 18 05/18/2015 [facility] Heart Rate 96 05/18/2015 [facility] Respitory Rate 20 05/09/2015 [facility] Center Systolic (mm Hg) 115 05/09/2015 [facility] Center Diastolic (mm Hg) 64 05/09/2015 [facility] Temperature Oral (F) 97.5 F 05/09/2015 [facility] Temperature Oral (F) 97.5 F 05/09/2015 [facility] Systolic (mm Hg) 136 05/09/2015 [facility] Center Diastolic (mm Hg) 70 05/09/2015 [facility] Respitory Rate 19 05/09/2015 [facility] Center Systolic (mm Hg) 135 05/09/2015 [facility] Diastolic (mm Hg) 67 05/09/2015 [facility] Weight 50 05/09/2015 [facility] BMI Calculated 21.53 05/09/2015 [facility] Height 152.4 cm 05/09/2015 [facility] Temperature Oral (F) 98.9 F 05/09/2015 [facility] Respitory Rate 18 05/09/2015 [facility] Heart Rate 77 05/09/2015 [facility] Systolic (mm Hg) 115 05/03/2015 [facility] Diastolic (mm Hg) 74 05/03/2015 [facility] 77 05/03/2015 [facility] Respitory Rate 18 05/03/2015 [facility] Temperature Oral (F) 98.5 F 05/03/2015 [facility] Heart Rate 75 05/02/2015 [facility] Respitory Rate 18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 enzymes, home later in the day [facility] is primary. Please call [phone] with questions Plan of Care No Data Provided for This Section Social History Social History Date Source Social History TypeResponse 10/10/2016 [facility] Substance Abuse Use: Current. Type: Cocaine. Alcohol Past, Type Beer. Frequency: 1-2 times per year. Smoking Status Current every day smoker; Type: Cigarett es; Started at age: 16.0; Previous treatment: None; Ready to change: No; Concerns about tobacco use in household: No; Exposure to Tobacco Smoke self; Other Tobacc o Frequency 1 PPD; Cigarette Smoking Las t 365 Days Yes; Reg Smoking Cessation Counseling Yes1 1Patient not receptive to smoking cessation counceling Social History TypeResponse 10/10/2016 [facility] Substance Abuse Use: Current. Type: Cocaine. Alcohol Past, Type Beer. Frequency: 1-2 times per year. Smoking Status Current every day smoker; Type: Cigarett es; Started at age: 16.0; Previous treatment: None; Ready to change: No; Concerns about tobacco use in household: No; Exposure to Tobacco Smoke self; Other Tobacc o Frequency 1 PPD; Cigarette Smoking Las t 365 Days Yes; Reg Smoking Cessation Counseling Yes1 1Patient not receptive to smoking cessation counceling Social History TypeResponse 10/10/2016 [facility] Substance Abuse Use: Current. Type: Cocaine. Alcohol Past, Type Beer. Frequency: 1-2 times per year. Smoking Status Current every day smoker; Type: Cigarett es; Started at age: 16.0; Previous treatment: None; Ready to change: No; Concerns about tobacco use in household: No; Exposure to Tobacco Smoke self; Cigarette Sm oking Last 365 Days Yes; Reg Smoking Cessation Counseling Ye s1 1Patient not receptive to smoking cessation counceling Social History TypeResponse 03/22/2015 [facility] Substance Abuse Use: None. Alcohol Past, Type Beer. Frequency: 1-2 times per year. Smoking Status Former smoker; Exposure to Tobacco Smoke None; Cigarette Smoking Last 365 Days No; Reg Smoking Cessation Counseling Yes Family History No Data Provided for This Section Advance Directives No Data Provided for This Section Functional Status No Data Provided for This Section
--- OUTSIDE RECORDS SUMMARY | 2020-06-24 03:35 | XMS REPORT | Continuity of Care Document ---
:1950 Author Organization [facility] t Address [address] [place] [address] Care Team Providers Name Role Phone UNKNOWN Primary Care Physician Unavailable Varun Patel Attending Clinician Lida Stratton Attending Clinician Melody Bello Attending Clinician Orlando Nava Attending Clinician Jacek Mendes Attending Clinician Neville Benitez Attending Clinician Bhumi Wise Attending Clinician Ned Holm Attending Clinician Ana Flynn Attending Clinician Bayron Attending Clinician Helena Dixon Attending Clinician Anjel Attending Clinician Jamshid Jennings Attending Clinician Sho Recio Attending Clinician Aliya Ware Attending Clinician Kane Rodriguez Attending Clinician Unavailable Pasquale Pina Attending Clinician Lucy Mcneill Attending Clinician Blaine Fragoso Attending Clinician Jasbir Rushing Attending Clinician Zack Attending Clinician Marilynn Andino Attending Clinician Alla Piedra Jr Attending Clinician Jl Arango Attending Clinician Beth Attending Clinician Jazmin Attending Clinician Jacek Mendes Admitting Clinician Ned Holm Admitting Clinician Blaine Fragoso Admitting Clinician Marilynn Andino Admitting Clinician Beth Admitting Clinician Jazmin Admitting Clinician Problems Condition Condition Condition Status Onset Resolution Last Treating Co mments Source Name Details Category Date Date Treatment Clinician Date Low back Low back Disease Active Harri s pain pain 7-11 Health 00:00: 00 Other Other Disease Active [facility] chest pain chest pain 5-21 He alth 00:00: 00 UPPER ABD Diagnosis Active 2017-01-19 Memoria PAIN 5-24 13:12:00 l UPPER 00:00: Maciej ABD PAIN 00 Active 01/19/2017 [facility] CHEST PAIN Diagnosis Active 2017-01-16 Memoria 5-21 20:56:00 l CHEST 00:00: [place] PAIN 00 [facility] Active 2016-11-28 Mem oria 4-02 20:00:00 l PAIN 00:00: [place] 00 Active 11/28/2016 [facility] FACIAL Diagnosis Active 2016-11-06 Mem oria SWELLING 3-11 18:35:00 l FACIAL 00:00: [place] SWELLING 00 Active 11/06/2016 [facility] SYNCOPE Diagnosis Active 2017-02-18 Me moria 2-12 10:16:00 l SYNCOPE 00:00: Maciej 00 Active 10/10/2016 [facility] SICK Diagnosis Active 2016-10-10 Mem oria 2-12 20:58:00 l SICK 00:00: Maciej 00 Active 10/10/2016 [facility] CHEST Diagnosis Active 2016-03-12 Mem oria PAIN, 7-14 12:26:00 l HYPOTENSIO CHEST 00:00: Caroline nn N PAIN, 00 HYPOTENSIO N Active 03/11/2016 [facility] SOB Diagnosis Active 2016-03-11 Mem oria - 15:11:00 l SOB 00:00: Maciej 00 Active 03/11/2016 [facility] BACK PAIN Diagnosis Active 2016-10-12 Memoria 09-14 14:26:00 l BACK 00:00: [place] PAIN 00 Active 09/14/2015 [facility] COPD, Diagnosis Active 2015-09-05 Mem oria CHEST PAIN 09-03 15:21:00 l COPD, 00:00: [place] CHEST PAIN 00 Active 09/03/2015 [facility] HEADACHE Diagnosis Active 2014-082015-07-15 M emoria 09-14 17:17:00 l HEADACHE 00:00: Kristopher n 00 Active 07/15/2015 [facility] SOB/ Diagnosis Active 2014-082015-07-05 Mem oria WEAKNESS 09-03 01:33:00 l SOB/ 22:00: [place] WEAKNESS 00 Active 07/04/2015 [facility] LOWER BACK Diagnosis Active 2014-082015-07-11 Memoria AND LEG 09-03 13:07:00 l PAIN LOWER 00:00: Maciej BACK AND 00 LEG PAIN Active 07/04/2015 [facility] SHORTNESS Diagnosis Active 2014-082015-06-04 Memoria OF BREATH 0 01:54:00 l 19:00: [place] SHORTNESS 00 OF BREATH Active 06/03/2015 [facility] NAUSEA Diagnosis Active 2015-05-20 Mem oria 05-18 07:49:00 l NAUSEA 00:00: [place] 00 Active 05/18/2015 [facility] FALL Diagnosis Active 2015-05-02 Mem oria 05-02 16:55:00 l FALL 00:00: Maciej 00 Active 05/02/2015 [facility] NECK AND Diagnosis Active 2015-03-30 M emoria SHOULDER 03-30 16:35:00 l PAIN NECK AND 00:00: Kristopher n SHOULDER 00 PAIN Active 03/30/2015 [facility] SOB/CHEST Diagnosis Active 2015-03-21 Memoria PAIN 03-21 15:46:00 l 00:00: Maciej SOB/CHEST 00 PAIN Active 03/21/2015 [facility] HYPOTENSIO Diagnosis Active 2015-03-31 Memoria N, CHEST 03-21 11:41:00 l PAIN 00:00: Maciej HYPOTENSIO 00 N, CHEST PAIN Active 03/21/2015 [facility] LOWER BACK Diagnosis Active 2015-03-11 Memoria PAIN 03-11 15:56:00 l LOWER 00:00: [place] BACK PAIN 00 Active 03/11/2015 [facility] UPPER BACK Diagnosis Active 2015-02-24 Memoria PAIN 02-24 15:44:00 l UPPER 00:00: Maciej BACK PAIN 00 Active 02/24/2015 [facility] ACUTE Diagnosis Active 2015-02-26 Mem oria CHEST PAIN 02-24 09:02:00 l ACUTE 00:00: Maciej CHEST PAIN 00 Active 02/24/2015 [facility] UNSTABLE Diagnosis Active 2015-02-19 M emoria ANGINA; 02-16 13:44:00 l HYPOTENSIO UNSTABLE 00:00: He rmann N ANGINA; 00 HYPOTENSIO N Active 02/16/2015 [facility] CHEST/LEG Diagnosis Active 2013-12-22 Memoria PAIN 12-22 18:23:00 l 00:00: Maciej CHEST/LEG 00 PAIN Active 12/22/2013 [facility] OTHER Diagnosis Active 2013-12-16 Mem oria 4-20 20:50:00 l OTHER 00:00: [place] 00 Active 12/16/2013 [facility] ACS Diagnosis Active 2013-12-18 Mem oria 4-20 15:44:00 l ACS 00:00: Maciej 00 Active 12/16/2013 [facility] Stented Problem Resolve 2017-01-22 Mem oria coronary d 04:26:21 l artery Stented Maciej (finding) coronary artery (finding) Resolved Problem 01/22/2017 [facility] Asthma Problem Active 2017-01-22 Memor ia (disorder) 04:26:21 l Asthma [place] (disorder) Active Problem 01/22/2017 [facility] Cardiac Problem Active 2017-01-22 Eleazar hilton chest pain 04:26:21 l (finding) Cardiac Herm sho chest pain (finding) Active Problem 01/22/2017 [facility], [facility] Hypertensi Problem Active 2017-01-22 M emoria ve 04:26:21 l disorder, [place] systemic Hypertensi arterial ve (disorder) disorder, systemic arterial (disorder) Active Problem 01/22/2017 [facility], [facility] Hyperlipid Problem Active 2017-01-22 M emoria emia 04:26:21 l (disorder) Kristopher n Hyperlipid emia (disorder) Active Problem 01/22/2017 [facility], [facility] Myocardial Problem Active 2017-01-22 M emoria infarction 04:26:21 l (disorder) Kristopher n Myocardial infarction (disorder) Active Problem 01/22/2017 [facility], [facility] Smoking Problem Active 2017-01-22 Eleazar hilton cessation 04:26:21 l advice Smoking [place] (regime/th cessation erapy) advice (regime/th erapy) Active Problem 01/22/2017 [facility], [facility] Substance Problem Active 2017-01-22 Me moria abuse 04:26:21 l (disorder) Kristopher n Substance abuse (disorder) Active Problem 01/22/2017 [facility] Tissue Problem Active 2017-01-22 Memor ia perfusion 04:26:21 l measure Tissue Maciej (observabl perfusion e entity) measure (observabl e entity) Active Problem 01/22/2017 [facility], [facility] Heart Problem Active 2013-12-28 Memor ia disease 01:02:24 l (disorder) Heart Caroline nn disease (disorder) Active Problem 12/28/2013 [facility] INTERMED Diagnosis Active 2013-12-18 M emoria CORONARY 15:44:00 l SYND INTERMED Kristopher n CORONARY SYND Active [facility] ANGINA Diagnosis Active 2015-02-19 Mem oria DECUBITUS 13:44:00 l ANGINA [place] DECUBITUS Active [facility] HYPOTENSIO Diagnosis Active 2015-03-31 Memoria N NOS 11:41:00 l Maciej HYPOTENSIO N NOS Active [facility] SYNCOPE Diagnosis Active 2017-02-18 Me moria AND 10:16:00 l COLLAPSE SYNCOPE Caroline nn AND COLLAPSE Active [facility] Chest Problem 2017-01-19 2017-01-19 M emoria pain, 01-16 00:39:08 00:39:08 l unspecifie Chest 05:00: Caroline nn d pain, 00 unspecifie d 01/16/2017 01/19/2017 [facility] Urinary Problem 2016-12-01 2016-12-01 Memoria tract 4- 00:38:41 00:38:41 l infection, Urinary 05:00: Her farooq site not tract 00 specified infection, site not specified 11/28/2016 12/01/2016 [facility] Dorsalgia, Problem 2016-12-01 2016-12-01 Memoria unspecifie 4 00:38:41 00:38:41 l d 05:00: Maciej Dorsalgia, 00 unspecifie d 11/28/2016 12/01/2016 [facility] Bitten or Problem 2016-11-09 2016-11-09 Memoria stung by 3-11 03:02:23 03:02:23 l nonvenomou Bitten 06:00: Herm sho s insect or stung 00 and other by nonvenomou nonvenomou s s insect arthropods and other , initial nonvenomou encounter s arthropods , initial encounter 11/06/2016 11/09/2016 [facility] Discharge Problem 2016-04-17 2016-04-17 Memoria Diagnosis: 04-14 03:14:09 03:14:09 l Syncope, 05:00: Maciej near Discharge 00 Diagnosis: Syncope, near 04/14/2016 04/17/2016 [facility] Discharge Problem 2016-03-08 2016-03-08 Memoria Diagnosis: 03-05 04:59:23 04:59:23 l Trichomona 05:00: Kristopher n s Discharge 00 vaginitis Diagnosis: Trichomona s vaginitis 03/05/2016 03/08/2016 [facility] Discharge Problem 2016-03-08 2016-03-08 Memoria Diagnosis: 03-05 04:59:23 04:59:23 l Lumbago 05:00: Maciej Discharge 00 Diagnosis: Lumbago 03/05/2016 03/08/2016 [facility] Discharge Problem 2015-2016-03-03 2016-03-03 Memoria Diagnosis: 7- 00:43:25 00:43:25 l Bronchitis 05:00: Kristopher n Discharge 00 Diagnosis: Bronchitis 02/29/2016 03/03/2016 [facility] Discharge Problem 2015-05-21 2015-05-21 Memoria Diagnosis: 05-18 01:04:08 01:04:08 l Abdominal 05:00: [place] pain, Discharge 00 acute, Diagnosis: epigastric Abdominal pain, acute, epigastric 05/18/2015 05/21/2015 [facility] Discharge Problem 2015-05-12 2015-05-12 Memoria Diagnosis: 05-09 07:40:44 07:40:44 l Chest pain 05:00: Kristopher n Discharge 00 Diagnosis: Chest pain 05/09/2015 05/12/2015 [facility] Discharge Problem 2015-05-05 2015-05-05 Memoria Diagnosis: 05-02 10:45:36 10:45:36 l Vertigo 05:00: [place] Discharge 00 Diagnosis: Vertigo 05/02/2015 05/05/2015 [facility] Discharge Problem 2015-05-05 2015-05-05 Memoria Diagnosis: 05-02 10:45:36 10:45:36 l Syncope 05:00: [place] and Discharge 00 collapse Diagnosis: Syncope and collapse 5 05/05/2015 [facility] Discharge Problem 2015-04-14 2015-04-14 Memoria Diagnosis: 04-11 05:25:30 05:25:30 l Knee pain, 05:00: Kristopher n right Discharge 00 Diagnosis: Knee pain, right 04/11/2015 04/14/2015 [facility] Discharge Problem 2015-04-14 2015-04-14 Memoria Diagnosis: 04-11 05:25:30 05:25:30 l Lumbar 05:00: [place] spondylosi Discharge 00 s Diagnosis: Lumbar spondylosi s 04/11/2015 04/14/2015 [facility] Discharge Problem 2015-04-14 2015-04-14 Memoria Diagnosis: 04-11 05:25:30 05:25:30 l Anterolist 05:00: Kristopher n hesis Discharge 00 Diagnosis: Anterolist hesis 04/11/2015 04/14/2015 [facility] Discharge Problem 2015-04-14 2015-04-14 Memoria Diagnosis: 04-11 05:25:30 05:25:30 l Accidental 05:00: Kristopher n fall Discharge 00 Diagnosis: Accidental fall 04/11/2015 04/14/2015 [facility] Discharge Problem 2015-04-02 2015-04-02 Memoria Diagnosis: 03-30 00:46:48 00:46:48 l Chronic 05:00: [place] pain in Discharge 00 right Diagnosis: shoulder Chronic pain in right shoulder 04/02/2015 [facility] Discharge Problem 2015-03-14 2015-03-14 Memoria Diagnosis: 03-11 09:47:20 09:47:20 l Chest wall 05:00: Kristopher n muscle Discharge 00 strain Diagnosis: Chest wall muscle strain 03/11/2015 03/14/2015 [facility] Discharge Problem 2015-03-08 2015-03-08 Memoria Diagnosis: 03-05 04:07:57 04:07:57 l Dyspnea 05:00: [place] Discharge 00 Diagnosis: Dyspnea 03/05/2015 03/08/2015 [facility] Allergies, Adverse Reactions, Alerts Allergy Allergy Status Severity Reaction(s) Onset Inactive Treating Comm ents Source Name Type Date Date Clinician Penicill Propensi Active [place] ins ty to 01-02 Health adverse 00:00: reaction 00 s to drug penicill penicill Active Memori a ins ins l [place] Social History Social Habit Start Date Stop Date Quantity Comments Source Sex Assigned At [facility] Social History 2015-03-22 2015-03-22 [facility] 02:16:03 02:16:03 Medications Ordered Filled Start Stop Current Ordering Indication Dosage Frequency Signature Comments Components Source Medication Medication Date Date Medication? Clinician (SIG) Name Name metoprolol Yes Other chest 25mg Q.5D Take 1 [facility] tartrate 7-11 pain tablet by [facility] (LOPRESSOR) 00:00: mouth 2 25 mg 00 times tablet daily. naproxen Yes Chronic 375mg Take 1 [facility] ris (NAPROSYN) 7-11 bilateral tablet by [facility] 375 mg 00:00: low back mouth 2 tablet 00 pain, with times sciatica daily as presence needed (as unspecified needed for pain). Famotidine No 20 mg, Memor ia 5-24 Route: l 18:00: IVP, ONCE, Dosing Weight 45.455, kg, Priority: STAT, Start date: 01/19/17 13:00:00 CDT, Stop date: 01/19/17 13:00:00 CDT GI cocktail No 30 mL, Eleazar hilton 5-24 Route: PO, l 18:00: Dosing Weight 45.455, kg, ONCE, STAT, Start date: 01/19/17 13:00:00 CDT, Stop date: 01/19/17 13:00:00 CDT Ondansetron No 4 mg, Memor ia 5-24 Route: l 18:00: IVP, ONCE, Dosing Weight 45.455, kg, Priority: STAT, Start date: 01/19/17 13:00:00 CDT, Stop date: 01/19/17 13:00:00 CDT Saline No Notes: Memoria Flush 0.9% 24 (Same as: l 18:00: BD Posiflush) Sodium No 1,000 mL, Memori a Chloride 5-24 2,000 l 0.154 18:00: ml/hr, [place] MEQ/ML 00 Infuse Injectable Over: 30 Solution minutes, Route: IV, ONCE, Priority: STAT, Dosing Weight 45.455 kg, Start date: 01/19/17 13:00:00 CDT, Duration: 1 doses or times, Stop date: 01/19/17 13:00:00 CDT clopidogrel No Notes: Eleazar hilton 5-22 (Same As: l 14:00: Plavix) atorvastati No Notes: Eleazar hilton n 5-22 Same as l 02:00: Lipitor aspirin 81 Yes 81 mg = 1 Me moria mg tablet, 5-22 tab, PO, l enteric 01:46: Daily, # Kristopher n coated 00 90 tab, 3 Refill(s), other metoprolol No Notes: Memor ia tartrate -22 (Same as: l 01:44: Lopressor) 12.5 mg=1/2 X 25 mg TAB Meclizine No Notes: Memori a -22 (Same as: l 01:44: Antivert) nitrofurant No 100 mg, Mem oria oin -22 PO, BID, # l 01:43: 14 cap, 0 Maciej 00 Refill(s) meclizine Yes 25 mg = 1 Mem oria 25 mg oral 5-22 tab, PO, l tablet 01:43: TID, PRN Maciej 00 for dizziness, # 60 tab, 0 Refill(s) Morphine No Notes: Memoria -21 (Same l 23:57: as:MORPhin e Sulfate) Ondansetron No Notes: Eleazar hilton -21 (Same as: l 23:57: Zofran) MEDICATION WASTE Product Size: 4 mg Product Wasted: _0__ mg Aspirin No Notes: Memoria 5-21 Take with l 23:57: food. Saline No Notes: Memoria Flush 0.9% 01-16 Same as: l 23:41: BD Posiflush Sterile 200 ACTUAT Yes 2 puff, Eleazar hilton Albuterol -03 INHALATION l 0.09 03:43: , Q4H, PRN Maciej MG/ACTUAT 00 as needed Dry Powder for Inhaler shortness of breath or wheezing, # 1 box, 0 Refill(s) tramadol Yes 50 mg = 1 Eleazar hilton hydrochlori 4-03 tab, PO, l de 50 MG 03:41: Q6H, PRN Caroline nn Oral Tablet 00 Pain, X 3 day, # 12 tab, 0 Refill(s) Nitrofurant Yes 100 mg = 1 Memoria oin 100 MG 4-03 cap, PO, l Oral 03:41: BID, X 7 [place] Capsule 00 day, # 14 [Macrobid] cap, 0 Refill(s) Tramadol No Notes: Not Mem oria - to exceed l 03:02: 400mg/day. Maciej 00 (Same As: Ultram) Albuterol No Notes: Memori a 0.833 MG/ML - (Same as: l / 00:23: Duoneb) Maciej Ipratropium 00 Shubuta 0.167 MG/ML Inhalant Solution [DuoNeb] Saline No Notes: Memoria Flush 0.9% - preservati l 00:23: ve free. [place] 00 Mupirocin Yes 1 appl, Memor ia 0.02 MG/MG 3-12 TOP, TID, l Topical 02:49: PRN as Maciej Ointment 00 needed, [Bactroban] Apply to affected area(s), X 14 day, # 60 gm, 0 Refill(s) Saline No Notes: Memoria Flush 0.9% 3-12 (Same as: l 00:51: BD [place] Posiflush) atorvastati No Notes: Eleazar hilton n 2-14 Same as l 03:00: Lipitor [place] remove No Notes: Memoria patch 2-14 Remove l 03:00: patch 12 [place] 00 hours after applicatio n each day. metoprolol No Notes: Memor ia tartrate 2-13 (Same as: l 15:00: Lopressor) [place] 00 12.5 mg=1/2 X 50 mg TAB heparin No Notes: Memoria sodium, 2-13 porcine l porcine 15:00: heparin [place] 2500 UNT/ML 00 Injectable Solution Protonix No Notes: Memoria 2-13 Tablet l 15:00: should not [place] 00 be chewed or crushed. (Same as: Protonix) Symbicort No Notes: Memori a 160/4.5 2-13 (Same as: l inhalation 15:00: Symbicort) H ermann aerosol 00 WASTE: with Aerosol - adapter Return to Pharmacy Aspirin 325 No Notes: Eleazar hilton MG Oral 2-13 Take with l Tablet 15:00: food. Maciej Omeprazole No 20 mg, Memor ia 2-13 Route: PO, l 15:00: Drug form: [place] 00 ECTAB, BID, Dosing Weight 50, kg, Start date: 10/11/16 9:00:00 [employer], Duration: 30 day, Stop date: 11/09/16 17:00:00 CDT potassium No Notes: Memori a chloride 2-13 (Same as: l 06:02: K-Dur 20) [place] 00 "Do Not Crush" With food and full glass of water Nitroglycer No Notes: Eleazar hilton in 0.4 MG 2-13 (Same l Sublingual 03:32: as:Nitroqu H ermann Tablet 00 ick, Nitrostat) "Do Not Crush" Sublingual tablet Lidocaine No Notes: Memori a Hydrochlori 2-13 (Same as: l de 0.05 03:31: Lidoderm) Caroline nn MG/MG 00 "Remove Transdermal old patch Patch before [Lidoderm] applicatio n of new patch" Acetaminoph No Notes: Do M emoria en 2-13 not exceed l 02:07: 4 gm/day. Maciej 00 (Same as: Tylenol) Docusate No Notes: Memoria 2-13 (Same as: l 02:07: Colace) [place] 00 (Do Not Crush) Morphine No Notes: Memoria 2-13 (Same l 02:07: as:MORPhin Maciej 00 e Sulfate) Acetaminoph No Notes: Eleazar hilton en 325 MG / 2-13 (Same as: l Hydrocodone 02:07: [place] Caroline nn Bitartrate 00 325/5) Do 5 MG Oral not exceed Tablet 4gm/day of acetaminop hen. Ondansetron No Notes: Eleazar hilton 2-13 (Same as: l 02:07: Zofran) Maciej 00 MEDICATION WASTE Product Size: 4 mg Product Wasted: 0 mg Dilaudid No Notes: Memoria 2-12 Same as: l 22:24: Dilaudid Maciej 00 potassium No Notes: Memori a chloride 2-12 (Same as: l 19:48: K-Dur 20) [place] 00 "Do Not Crush" With food and full glass of water Aspirin No Notes: Memoria 2-12 Take with l 18:33: food. [place] 00 B-3-50 No 50 mg, Memoria 1-18 Route: PO, l 15:00: Daily, Dosing Weight 50, kg, Start date: 09/15/16 9:00:00 [employer], Duration: 30 day, Stop date: 10/14/16 9:00:00 [employer] tramadol Yes 50 mg = 1 Eleazar hilton hydrochlori 8-17 tab, PO, l de 50 MG 06:12: BID, X 15 Herm sho Oral Tablet 00 day, # 30 tab, 0 Refill(s) Acetaminoph No Notes: Eleazar hilton en 325 MG / 8-17 (Same as: l Hydrocodone 05:13: [place] Caroline nn Bitartrate 00 325/5) Do 5 MG Oral not exceed Tablet 4gm/day of [[place] acetaminop 5/325] hen. atorvastati No Notes: Eleazar hilton n 7-16 (Same as: l 02:00: Lipitor) [place] 00 200 ACTUAT No Notes: Memor ia Albuterol 7-15 Same as: l 0.09 16:00: Ventolin Maciej MG/ACTUAT 00 HFA Metered WASTE: Dose Aerosol - Inhaler Return to [[facility]] Protonix No Notes: Memoria 7-15 Tablet l 15:00: should not 00 be chewed or crushed. (Same as: Protonix) Symbicort No Notes: Memori a 160/4.5 7-15 (Same as: l inhalation 14:12: Symbicort) H ermann aerosol 00 WASTE: with Aerosol - adapter Return to Pharmacy Aspirin 81 No Notes: Memor ia MG Chewable 7-15 Take with l Tablet 14:00: food. Omeprazole No 20 mg, Memor ia 7-15 Route: PO, l 14:00: Drug form: ECTAB, BID, Dosing Weight 50, kg, Start date: 03/12/16 9:00:00 CDT, Duration: 30 day, Stop date: 04/10/16 17:00:00 CDT metoprolol No Notes: Memor ia tartrate 7-15 (Same as: l 14:00: Lopressor) 00 clopidogrel No Notes: Eleazar hilton 7-15 (Same As: l 14:00: Plavix) Maciej 00 Aspirin 325 No Notes: Eleazar hilton MG Oral 7-15 Take with l Tablet 14:00: food. Maciej 00 tramadol No Notes: Not Mem oria hydrochlori 7-15 to exceed l de 50 MG 13:11: 400mg/day. Her farooq Oral Tablet 00 (Same As: Ultram) Naprosyn No Notes: Memoria 7-15 (Same as: l 13:11: Naprosyn) Maciej 00 Take with food. Lidocaine No Notes: Memori a Hydrochlori -15 (Same as: l de 0.05 13:11: Lidoderm) Caroline nn MG/MG 00 Transdermal Patch [Lidoderm] Aspirin No Notes: Memoria 7-15 Take with l 02:36: food. Nitroglycer No Notes: Eleazar hilton in -15 (Same l 02:35: as:Nitroqu ick, Nitrostat) "Do Not Crush" Sublingual tablet Saline No Notes: Memoria Flush 0.9% 7-15 (Same as: l 02:00: BD [place] Posiflush) Saline No Notes: Memoria Flush 0.9% 7-14 (Same as: l 23:45: BD [place] 00 Posiflush) Sodium No 1,000 mL, Memori a Chloride 7-14 1,000 l 0.154 20:57: ml/hr, Maciej MEQ/ML 00 Infuse Injectable Over: 1 Solution Hour, Route: IV, ONCE, Priority: STAT, Dosing Weight 50 kg, Start date: 03/11/16 15:57:00 CDT, Duration: 1 doses or times, Stop date: 03/11/16 15:57:00 CDT Sodium No 1,000 mL, Memori a Chloride 7-14 1,000 l 0.154 20:56: ml/hr, [place] MEQ/ML 00 Infuse Injectable Over: 1 Solution Hour, Route: IV, ONCE, Priority: STAT, Dosing Weight 50 kg, Start date: 03/11/16 15:56:00 CDT, Duration: 1 doses or times, Stop date: 03/11/16 15:56:00 CDT Saline No Notes: Memoria Flush 0.9% 03-11 (Same as: l 20:05: BD Maciej 00 Posiflush) Nitroglycer No Notes: Eleazar hilton in 03-11 (Same l 20:05: as:Nitroqu [place] ick, Nitrostat) "Do Not Crush" Sublingual tablet tramadol Yes 50 mg = 1 Eleazar hilton hydrochlori 03-06 tab, PO, l de 50 MG 02:07: Q6H, PRN Caroline nn Oral Tablet 00 Pain, X 10 day, # 10 tab, 0 Refill(s) Lidocaine Yes 1 patch, Eleazar hilton Hydrochlori 03-06 TOP, l de 0.05 02:07: Daily, PRN Herm sho MG/MG 00 Pain Score Transdermal 6-10, # 30 Patch patch, 0 [Lidoderm] Refill(s) Naproxen Yes 250 mg = 1 Mem oria 250 MG Oral 03-06 tab, PO, l Tablet 02:07: BID, PRN [place] [Naprosyn] 00 Pain Score 6-10, # 60 tab, 0 Refill(s) Zofran No Notes: Memoria 03-06 (Same as: l 00:55: Zofran Maciej 00 ODT) Acetaminoph No Notes: Eleazar hilton en 325 MG / 03-06 (Same as: l Hydrocodone 00:55: [place] Caroline nn Bitartrate 00 325/5) Do 5 MG Oral not exceed Tablet 4gm/day of [[place] acetaminop 5/325] hen. Flagyl No Notes: Memoria 03-06 (Same as: l 00:55: Flagyl) Maciej 00 Take with food/ avoid alcohol predniSONE Yes 40 mg = 2 Me moria 20 mg oral 03-01 tab, PO, l tablet 01:00: Daily, X 3 Caroline nn 00 day, # 6 tab, 0 Refill(s) 200 ACTUAT Yes 2 puff, Eleazar hilton Albuterol 03-01 INHALATION l 0.09 01:00: , Q4H, PRN Maciej MG/ACTUAT 00 for Metered wheezing, Dose # 9 gm, 0 Inhaler Refill(s) [[facility] HFA] Potassium No Notes: Memori a Chloride 20 02-28 (Same as: l MEQ 23:48: K-Dur 20) [place] Extended 00 "Do Not Release Crush" Tablet With food and full glass of water Albuterol No Notes: Memori a 0.833 MG/ML 02-28 (Same as: l / 22:53: Duoneb) [place] Ipratropium 00 Shubuta 0.167 MG/ML Inhalant Solution [DuoNeb] Symbicort Yes 2 puff, Memor ia 160/4.5 -08 INHALATION l inhalation 13:20: , BID, # 1 H ermann aerosol 00 ea, 1 with Refill(s) adapter predniSONE Yes See Memoria 10 mg oral 08 Special l tablet 13:20: Instructio Caroline nn 00 ns, PO, Daily, 6 day regimen: Day 1 - 30 mg (3 tabs) Day 2 - 25 mg (2 1/2 tabs) Day 3 - 20 mg (2 tabs) Day 4 - 15 mg (1 1/2 tabs) Day 5 - 10 mg (1 tab) Day 6 - 5 mg (1/2 tab), X 6 day, # 12 tab, 0 Refill(s) Aspirin 325 Yes 325 mg = 1 Memoria MG Oral 1-08 tab, PO, l Tablet 13:20: Daily, 0 [place] 00 Refill(s) atorvastati No Notes: Eleazar hilton n -08 (Same as: l 03:00: Lipitor) [place] 00 Solu-Medrol No Notes: Eleazar hilton 1-07 (Same l 22:00: as:Solu-ME [place] 00 DROL, A-Methapre d) 24 HR No Notes: Memoria Metoprolol - (Same as: l Tartrate 25 15:00: Toprol XL) [place] MG Extended 00 Do Not Release Crush Tablet [Toprol] clopidogrel No Notes: Eleazar hilton -07 (Same As: l 15:00: Plavix) [place] 00 Protonix No Notes: Memoria -07 Tablet l 15:00: should not [place] 00 be chewed or crushed. (Same as: Protonix) Aspirin 325 No Notes: Eleazar hilton MG Oral 09-04 Take with l Tablet 15:00: food. Omeprazole No 20 mg, Memor ia 09-04 Route: PO, l 15:00: Drug form: [place] ECTAB, BID, Dosing Weight 50.92, kg, Start date: 09/04/15 9:00:00, Duration: 30 day, Stop date: 10/03/15 17:00:00 Acetaminoph No Notes: Do M emoria en 300 MG / 09-04 not exceed l Codeine 14:07: 4gm/day of Herm sho Phosphate acetaminop 30 MG Oral hen. Tablet (Same as: [Tylenol Tylenol with with Codeine #3] Codeine # 3) NS 1,000 mL No 1,000 mL, M emoria 09-04 Rate: 75 l 14:03: ml/hr, Infuse over: 13.3 hr, Route: IV, Dosing Weight 50.92 kg, Total Volume: 1,000, Start date: 09/04/15 8:03:00, Duration: 30 day, Stop date: 10/04/15 8:02:00 Albuterol No Notes: Memori a 0.833 MG/ML 09-04 (Same as: l / 14:00: Duoneb) Maciej Ipratropium 00 Shubuta 0.167 MG/ML Inhalant Solution methylPREDN No Notes: Eleazar hilton ISolone 09-04 (Same l SODium 14:00: as:Solu-ME Caroline nn SUCCinate 00 DROL, A-Methapre d) methylPREDN No Notes: Eleazar hilton ISolone 09-04 (Same l SODium 04:05: as:Solu-ME [place] nn SUCCinate 00 DROL, A-Methapre d) Albuterol No Notes: Memori a 0.833 MG/ML 09-04 (Same as: l / 04:05: Duoneb) [place] Ipratropium 00 Shubuta 0.167 MG/ML Inhalant Solution Saline No Notes: Memoria Flush 0.9% 1-07 (Same as: l 04:05: BD Maciej 00 Posiflush) atorvastati 2014-08 No Notes: Eleazar hilton n 1-19 (Same as: l 03:00: Lipitor) metoprolol 2014-08 Yes 12.5 mg = Me moria tartrate 25 1-18 0.5 tab, l mg oral 17:40: PO, BID, # Herm sho tablet 00 60 tab, 0 Refill(s) clopidogrel 2014-08 Yes 75 mg = 1 M emoria 75 mg oral 1-18 tab, PO, l tablet 17:40: Daily, # [place] 00 30 tab, 1 Refill(s) atorvastati 2014-08 Yes 80 mg = 2 M emoria n 40 mg 1-18 tab, PO, l oral tablet 17:40: Bedtime, # Maciej 00 60 tab, 1 Refill(s) 200 ACTUAT 2014-08 Yes 90 Memoria Albuterol 1-18 microgram l 0.09 17:40: = 1 puff, Maciej MG/ACTUAT 00 INHALATION Metered , Q4H, PRN Dose for Inhaler wheezing, # 1 ea, 0 Refill(s) omeprazole 2014-08 Yes 20 mg = 1 Me moria 20 mg oral 1-18 tab, PO, l enteric 17:40: BID, # 60 Caroline nn coated 00 tab, 1 tablet Refill(s) metoprolol 2014-08 No Notes: Memor ia tartrate -18 (Same as: l 15:00: Lopressor) clopidogrel 2014-08 No Notes: Eleazar hilton 1-18 (Same As: l 15:00: Plavix) Protonix 2014-08 No Notes: Memoria 1-18 Tablet l 13:30: should not Mac[place] 00 be chewed or crushed. (Same as: Protonix) Albuterol 2014-08 No Notes: Memori a 0.833 MG/ML -18 (Same as: l / 03:38: Duoneb) Ipratropium 00 Shubuta 0.167 MG/ML Inhalant Solution Sodium 2014-08 No 250 mL, Memoria Chloride -18 Route: l 0.9% IV 03:26: IVPB, Maciej Start date: 07/15/15 21:26:00, Duration: 30 day, Stop date: 08/14/15 21:25:00, PRN Line Flush BD Normal 2014-08 No Notes: Memori a Saline 09-15 (Same as: l Flush 03:26: BD [place] 00 Posiflush) Nitroglycer 2014-08 No Notes: Eleazar hilton in 09-15 (Same l 03:23: as:Nitroqu Maciej 00 ick, Nitrostat) "Do Not Crush" Sublingual tablet Ibuprofen 2014-08 No Notes: Memori a 09-15 (Same as: l 03:20: Motrin) [place] 00 "Do Not Crush" Give with food. Baclofen 2014-08 No Notes: Memoria 09-15 (Same As: l 03:20: Lioresal) [place] 00 200 ACTUAT 2014-08 No Notes: Memor ia Albuterol 09-15 Albuterol l 0.09 03:20: 90 [place] MG/ACTUAT 00 microgram/ Metered inh 8gm Dose HFA Same Inhaler as: Ventolin, Proventil Sodium 2014-08 No 1,000 mL, Memori a Chloride 09-15 Rate: 125 l 0.0769 02:39: ml/hr, Maciej MEQ/ML 00 Infuse Injectable over: 8 Solution hr, Route: IV, Dosing Weight 50 kg, Total Volume: 1,000, Start date: 07/15/15 20:39:00, Duration: 30 day, Stop date: 08/14/15 20:38:00 Saline 2014-08 No Notes: Memoria Flush 0.9% 18 (Same as: l 02:39: BD Mac[place] 00 Posiflush) Aspirin 2014-08 No 324 mg, Memoria 09-14 Route: PO, l 20:15: ONCE, Maciej 00 Dosing Weight 50, kg, Priority: STAT, Start date: 07/15/15 14:15:00, Stop date: 07/15/15 14:15:00 Saline 2014-08 No Notes: Memoria Flush 0.9% 1-17 (Same as: l 20:15: BD [place] 00 Posiflush) Sodium No 500 mL, Memoria Chloride 9-20 500 ml/hr, l 0.154 21:02: Infuse [place] MEQ/ML 00 Over: 1 Injectable Hour, Solution Route: IV, ONCE, Priority: STAT, Dosing Weight 50 kg, Start date: 05/18/15 16:02:00, Duration: 1 doses or times, Stop date: 05/18/15 16:02:00 GI cocktail No 30 mL, Eleazar hilton 05-18 Route: PO, l 18:59: Dosing Weight 50, kg, ONCE, STAT, Start date: 05/18/15 13:59:00, Stop date: 05/18/15 13:59:00 Morphine No 2 mg, Memoria 05-09 Route: l 18:21: IVP, ONCE, Dosing Weight 50, kg, Priority: STAT, Start date: 05/09/15 13:21:00, Stop date: 05/09/15 13:21:00 Ondansetron No 4 mg, Memor ia 05-09 Route: l 18:21: IVP, ONCE, Dosing Weight 50, kg, Priority: STAT, Start date: 05/09/15 13:21:00, Stop date: 05/09/15 13:21:00 Saline No Notes: Memoria Flush 0.9% 05-09 (Same as: l 18:21: BD Posiflush) meclizine Yes 25 mg = 1 Mem oria 25 mg oral 05-02 tab, PO, l tablet 23:45: TID, PRN [place] 00 for dizziness, X 20 day, # 60 tab, 0 Refill(s) Acetaminoph No Notes: Eleazar hilton en 05-02 (Same as: l 23:21: Tylenol) Antivert No Notes: Memoria 05-02 (Same as: l 21:38: Antivert) baclofen 10 Yes 10 mg = 1 M emoria mg oral 14 tab, PO, l tablet 19:32: TID, PRN Spasms, # 21 tab, 0 Refill(s) Acetaminoph Yes 1 tab, PO, Memoria en 300 MG / 8-14 Q6H, PRN l Codeine 19:31: pain, X 5 Caroline nn Phosphate 00 day, # 20 60 MG Oral tab, 0 Tablet Refill(s) [Tylenol with Codeine #4] Acetaminoph No Notes: Eleazar hilton en 325 MG / 8- Same as l Hydrocodone 17:21: [place] Caroline nn Bitartrate 00 325-7.5mg 7.5 MG Oral Do not Tablet exceed [[place] 4gm/day of 7.5/325] acetaminop hen. ibuprofen Yes Special Memor ia 800 mg oral 03-30 Instructio l tablet 21:28: ns: Take with food Ibuprofen No Notes: Memori a 400 MG Oral 03-30 (Same as: l Tablet 20:32: Motrin) "Do Not Crush" Give with food. cyclobenzap No Notes: Eleazar hilton rine 03-30 (Same As: l 20:31: Flexeril) Readi-Cat 2 No Notes: Eleazar hilton 03-23 Same as l 23:00: Readi-Cat 2 lactulose No Notes: Memori a - (Same l 17:35: as:Chronul [place] 00 ac) atorvastati No Notes: Eleazar hilton n 03-23 (Same As: l 02:00: Lipitor) Motrin No Notes: Memoria 7-25 (Same as: l 23:10: Motrin) "Do Not Crush" Take with food. Omeprazole No 20 mg, Memor ia 03-22 Route: PO, l 22:00: Drug form: ECTAB, BID, Dosing Weight 53, kg, Start date: 03/22/15 17:00:00, Duration: 30 day, Stop date: 04/21/15 9:00:00 Protonix No Notes: Memoria 7-25 Tablet l 22:00: should not be chewed or crushed. (Same as: Protonix) metoprolol No Notes: Memor ia extended 03-22 (Same as: l release 16:30: Toprol XL) Do Not Crush clopidogrel No Notes: Eleazar hilton 7-25 (Same As: l 16:00: Plavix) Maciej 00 metoprolol Yes 12.5 mg = Me moria tartrate 25 7-25 0.5 tab, l mg oral 02:19: PO, BID, # Herm sho tablet 00 180 tab, 0 Refill(s) clopidogrel Yes 75 mg = 1 M emoria 75 mg oral 7-25 tab, PO, l tablet 02:19: Daily, # Maciej 00 30 tab, 0 Refill(s) omeprazole Yes 20 mg = 1 Me moria 20 mg oral 7-25 tab, PO, l enteric 02:19: BID, # 60 Caroline nn coated 00 tab, 0 tablet Refill(s) atorvastati Yes 80 mg = 2 M emoria n 40 mg 7-25 tab, PO, l oral tablet 02:19: Bedtime, # Maciej 00 90 tab, 0 Refill(s) 200 ACTUAT Yes 1 puff, Eleazar hilton Albuterol 7-25 INHALATION l 0.09 02:19: , Q4H, PRN Maciej MG/ACTUAT 00 for Metered wheezing, Dose # 9 gm, 0 Inhaler Refill(s) Ondansetron No Notes: Eleazar hilton 7-25 (Same as: l 02:12: Zofran) [place] 00 MEDICATION WASTE Product Size: 4 mg Product Wasted: ___ mg Docusate No Notes: Memoria 7-25 (Same as: l 02:12: Colace) [place] 00 (Do Not Crush) Acetaminoph No Notes: Do M emoria en 7-25 not exceed l 02:12: 4 gm/day. Maciej 00 (Same as: Tylenol) Budesonide No Notes: Memor ia 0.25 MG/ML 7-25 (Same As: l Inhalant 01:00: Pulmicort) Her farooq Solution 00 [Pulmicort] Albuterol No Notes: Memori a 0.833 MG/ML 7-25 (Same as: l / 01:00: Duoneb) Maciej Ipratropium 00 Shubuta 0.167 MG/ML Inhalant Solution [DuoNeb] Potassium No Notes: Memori a Chloride 24 (Same as: l 1.33 MEQ/ML 23:15: Potassium H ermann Oral 00 Chloride) Solution Sodium No 1,000 mL, Memori a Chloride 24 1,000 l 0.154 22:23: ml/hr, [place] MEQ/ML 00 Infuse Injectable Over: 1 Solution hr, Route: IV, ONCE, Priority: STAT, Dosing Weight 50 kg, Start date: 03/21/15 17:23:00, Duration: 1 doses or times, Stop date: 03/21/15 17:23:00 Sodium No 1,000 mL, Memori a Chloride 24 1,000 l 0.154 21:12: ml/hr, [place] MEQ/ML 00 Infuse Injectable Over: 1 Solution hr, Route: IV, 1,000, Drug form: INJ, ONCE, Priority: STAT, Dosing Weight 50 kg, Start date: 03/21/15 16:12:00, Duration: 1 doses or times, Stop date: 03/21/15 16:12:00 Ondansetron No Notes: Eleazar hilton 24 (Same as: l 20:43: Zofran) [place] 00 MEDICATION WASTE Product Size: 4 mg Product Wasted: ___ mg Morphine No Notes: Memoria -24 (Same l 20:43: as:MORPhin [place] 00 e Sulfate) Aspirin No Notes: Memoria -24 Take with l 20:43: food. Maciej 00 Saline No Notes: Memoria Flush 0.9% 03-21 (Same as: l 20:43: BD Maciej 00 Posiflush) tramadol No 50 mg = 1 Eleazar hilton hydrochlori 14 tab, PO, l de 50 MG 22:02: Q4H, PRN Caroline nn Oral Tablet 00 pain, # 20 [Ultram] tab, 0 Refill(s) Aspirin No Notes: Memoria 7-14 Take with l 20:32: food. [place] 00 Morphine No Notes: Memoria 7-14 (Same l 20:32: as:MORPhin Maciej 00 e Sulfate) Ondansetron No Notes: Eleazar hilton 7-14 (Same as: l 20:32: Zofran) MEDICATION WASTE Product Size: 4 mg Product Wasted: ___ mg Saline No Notes: Memoria Flush 0.9% 03-11 (Same as: l 20:32: BD Maciej 00 Posiflush) Famotidine No 20 mg, 1 Mem oria 20 MG Oral 7-08 tab, l Tablet 14:00: Route: PO, Caroline nn [Pepcid] 00 BID, Dosing Weight 50, kg, Start date: 03/05/15 9:00:00, Duration: 30 day, Stop date: 04/03/15 17:00:00 MDI Inhaler Yes Special Mem oria Spacer 03-05 Instructio l 09:13: ns: Use as [place] directed 200 ACTUAT Yes 1 puff, Eleazar hilton Albuterol 08 INHALATION l 0.09 09:12: , Q4H, PRN [place] MG/ACTUAT 00 for Metered wheezing, Dose # 9 gm, 0 Inhaler Refill(s) Iohexol No Notes: Memoria - (same l 07:26: as:Omnipaq ue 350). Famotidine No 20 mg, 1 Mem oria 20 MG Oral -08 tab, l Tablet 07:18: Route: PO, Caroline nn [Pepcid] 00 ONCE, Dosing Weight 50, kg, Start date: 03/05/15 2:18:00, Stop date: 03/05/15 2:18:00 GI cocktail No 30 mL, Eleazar hilton 03-05 Route: PO, l 07:16: Dosing Weight 50, kg, ONCE, STAT, Start date: 03/05/15 2:16:00, Stop date: 03/05/15 2:16:00 Aspirin No Notes: Memoria 7-08 Take with l 06:11: food. Maciej remove No Notes: Memoria patch 7- Remove old l 14:00: patch Maciej 00 before applicatio n of new patch. Plavix No Notes: Memoria 6-30 (Same As: l 14:00: Plavix) Maciej 00 Omeprazole No 20 mg, Memor ia 6-30 Route: PO, l 14:00: Drug form: ECTAB, BID, Dosing Weight 50, kg, Start date: 02/25/15 9:00:00, Duration: 30 day, Stop date: 03/26/15 17:00:00 Nicoderm No Notes: Memoria C-Q 6-30 (Same as: l 14:00: Habitrol) "Remove old patch before applicatio n of new patch" Aspirin No Notes: Memoria 6-30 Take with l 14:00: food. 24 HR Yes = 1 patch, Memori a Nicotine 6-30 TOP, l 0.875 MG/HR 13:32: Daily, X He rmann Transdermal 56 14 day, # Patch 14 patch, [Nicoderm 0 C-Q] Refill(s) atorvastati Yes 40 mg = 2 M emoria n 20 mg 6-30 tab, PO, l oral tablet 13:32: Bedtime, # Maciej 46 60 tab, 0 Refill(s) omeprazole Yes 20 mg = 1 Me moria 20 mg oral 6-30 tab, PO, l enteric 13:32: BID, # 30 Caroline nn coated 44 tab, 0 tablet Refill(s) metoprolol Yes 12.5 mg = Me moria tartrate 25 6-30 0.5 tab, l mg oral 13:32: PO, BID, # Herm sho tablet 00 30 tab, 0 Refill(s) cyclobenzap Yes 10 mg = 1 M emoria rine 10 mg 6-30 tab, PO, l oral tablet 13:32: TID, PRN He r[place] 00 for spasms, # 30 tab, 0 Refill(s) clopidogrel Yes 75 mg = 1 M emoria 75 MG Oral 6-30 tab, PO, l Tablet 13:32: Daily, # [place] [Plavix] 00 30 tab, 0 Refill(s) Protonix No Notes: Memoria 6-30 Tablet l 12:30: should not be chewed or crushed. (Same as: Protonix) Protonix No Notes: For Mem oria 6-30 IV push l 02:55: reconstitu te with 10 ml 0.9% sodium chloride and push over 2 minutes. (Same as: Protonix) atorvastati No Notes: Eleazar hilton n 6-30 (Same As: l 02:00: Lipitor) Sodium No 250 mL, Memoria Chloride 02-25 Route: l 0.9% IV 02:00: IVPB, Start date: 02/24/15 21:00:00, Duration: 30 day, Stop date: 03/26/15 20:59:00, PRN Line Flush BD Normal No Notes: Memori a Saline 30 (Same as: l Flush 02:00: BD Posiflush) potassium No Notes: Memori a chloride 30 Infuse at l 02:00: a rate of 10 mEq/hr. (Same as: KCL) metoprolol No Notes: Memor ia tartrate 02-25 (Same as: l 02:00: Lopressor) cyclobenzap No Notes: Eleazar hilton rine 02-25 (Same As: l 01:53: Flexeril) Morphine No Notes: Memoria 02-24 (Same l 22:20: as:MORPhin e Sulfate) Ondansetron No Notes: Eleazar hilton 02-24 (Same as: l 22:20: Zofran) MEDICATION WASTE Product Size: 4 mg Product Wasted: ___ mg Acetaminoph No Notes: Do M emoria en 02-24 not exceed l 22:20: 4 gm/day. (Same as: Tylenol) Aspirin No Notes: Memoria 02-24 Take with l 21:09: food. potassium No 40 mEq, Memor ia chloride 02-24 Route: PO, l 19:49: Drug form: ERTAB, ONCE, Dosing Weight 50, kg, Priority: STAT, Start date: 02/24/15 14:49:00, Stop date: 02/24/15 14:49:00 Morphine No Notes: Memoria 02-24 (Same l 16:54: as:MORPhin Maciej 00 e Sulfate) remove No Notes: Memoria patch 02-18 Remove old l 14:00: patch before applicatio n of new patch. Plavix No Notes: Memoria - (Same As: l 14:00: Plavix) atorvastati No Notes: Eleazar hilton n 02-18 (Same As: l 02:00: Lipitor) Pravastatin No Notes: Eleazar hilton 02-18 (Same as: l 02:00: Pravachol) Protonix No Notes: Memoria 6-22 Tablet l 22:30: should not be chewed or crushed. (Same as: Protonix) NS 1,000 mL No 1,000 mL, M emoria 02-17 Rate: 100 l 21:51: ml/hr, Infuse over: 10 hr, Route: IV, Dosing Weight 51.051 kg, Total Volume: 1,000, Start date: 02/17/15 16:51:00, Duration: 30 day, Stop date: 03/19/15 16:50:00 Sodium No IV, 0 Memoria Chloride 6-22 ml/hr, l 0.9% IV 21:45: ONCE, Start date: 02/17/15 16:45:00, 500 ml metoprolol Yes 12.5 mg = Me moria tartrate 25 6-22 0.5 tab, l mg oral 20:24: PO, BID, 0 Herm sho tablet 00 Refill(s) naproxen No 500 mg = 1 Mem oria 500 mg oral 6-22 tab, PO, l tablet 20:24: BID, PRN [place] 00 Pain, # 30 tab, 0 Refill(s) Aspirin Low No 0 Memori a Dose 81 mg 6-22 Refill(s) l oral tablet 20:24: Kristopher n 00 cyclobenzap Yes 10 mg = 1 M emoria rine 10 mg 6-22 tab, PO, l oral tablet 20:24: TID, PRN [place] r[place] 00 for spasms, # 30 tab, 0 Refill(s) atorvastati No 20 mg = 1 M emoria n 20 mg 6-22 tab, PO, l oral tablet 20:24: Bedtime, # [place] 00 30 tab, 0 Refill(s) omeprazole Yes 20 mg = 1 Me moria 20 mg oral 6-22 tab, PO, l enteric 17:29: BID, # 30 Caroline nn coated 00 tab, 0 tablet Refill(s) 24 HR Yes = 1 patch, Memori a Nicotine 6-22 TOP, l 0.875 MG/HR 17:00: Daily, X He rmann Transdermal 00 14 day, # Patch 14 patch, [Nicoderm 0 C-Q] Refill(s) atorvastati Yes 40 mg = 2 M emoria n 20 mg 6-22 tab, PO, l oral tablet 17:00: Bedtime, # [place] 00 60 tab, 0 Refill(s) Nicotine No Notes: Memoria 6-22 (Same as: l 14:00: Habitrol) [place] 00 "Remove old patch before applicatio n of new patch" Aspirin 81 No Notes: Do Me moria MG Enteric -22 not crush l Coated 14:00: or chew. Maciej Tablet 00 (Same As: Ecotrin) Sodium No 1,000 mL, Memori a Chloride 02-17 Rate: 125 l 0.154 13:38: ml/hr, Maciej MEQ/ML 00 Infuse Injectable over: 8 Solution hr, Route: IV, Dosing Weight 51.051 kg, Total Volume: 1,000, Start date: 02/17/15 8:38:00, Duration: 30 day, Stop date: 03/19/15 8:37:00 Aspirin 81 No 81 mg = 1 Me moria MG Enteric 6-22 tab, PO, l Coated 02:37: Daily, # Maciej Tablet 00 90 tab, 3 Refill(s) clopidogrel Yes 75 mg = 1 M emoria 75 MG Oral 6-22 tab, PO, l Tablet 02:37: Daily, # Maciej [Plavix] 00 30 tab, 0 Refill(s) Enoxaparin No Notes: Memor ia 02-17 Nurse to l 02:30: ensure documentat ion of patient education per anticoagul ation policy. (Same as: Lovenox) Tessalon No Notes: Memoria Perles 02-17 (Same As: l 02:08: Tessalon Perles) "Do Not Crush" Acetaminoph No Notes: Do M emoria en 02-17 not exceed l 02:08: 4 gm/day. Maciej 00 (Same as: Tylenol) Diphenhydra No Notes: Eleazar hilton mine 02-17 (Same as: l 02:08: Benadryl) Dextrometho No Notes: Eleazar hilton rphan 02-17 (dextromet l Hydrobromid 02:08: horphan-gu Maciej e 2 MG/ML / 00 aifenesin Guaifenesin 10-100mg/5 20 MG/ML ml 10 ml Oral oral SOLN Solution ud) (Same as: Robitussin DM) Simethicone No Notes: Eleazar hilton 02-17 (Same as: l 02:08: Mylicon) Bisacodyl No Notes: Memori a 02-17 (Same As: l 02:08: DulcolaxDeandreDel[place] 00 Bisco-Lax) Ondansetron No Notes: Eleazar hilton 02-17 (Same as: l 02:08: Zofran) MEDICATION WASTE Product Size: 4 mg Product Wasted: ___ mg Nitroglycer No Notes: 1 Me moria in 0.02 02-17 gram is l MG/MG 02:06: approximat Kristopher n Topical 00 lv 1 inch Ointment of nitroglyce rin ointment (20 mg NTG per gram) (Same as:Nitro-B id) Nitroglycer No Notes: Eleazar hilton in 02-17 (Same l 02:06: as:Nitroqu ick, Nitrostat) "Do Not Crush" Sublingual tablet Acetaminoph No Notes: Do M emoria en 02-17 not exceed l 02:06: 4 gm/day. Maciej 00 (Same as: Tylenol) Acetaminoph No Notes: Eleazar hilton en 325 MG / 02-17 (Same as: l Hydrocodone 02:06: [place] Caroline nn Bitartrate 00 325/5) Do 5 MG Oral not exceed Tablet 4gm/day of acetaminop hen. Morphine No Notes: Memoria 02-17 (Same l 02:06: as:MORPhin Maciej 00 e Sulfate) Sodium No 1,000 mL, Memori a Chloride 02-17 Rate: 125 l 0.154 02:06: ml/hr, [place] MEQ/ML 00 Infuse Injectable over: 8 Solution hr, Route: IV, Dosing Weight 52.273 kg, Total Volume: 1,000, Start date: 02/16/15 21:06:00, Duration: 24 hr, Stop date: 02/17/15 21:05:00 normal No 500 mL, Memoria saline 0.9% 02-17 Rate: 500 l IV 500 mL 01:25: ml/hr, Kristopher n 00 Infuse over: 1 hr, Route: IV, Dosing Weight 52.273 kg, Total Volume: 500, Start date: 02/16/15 20:25:00, Duration: 1 doses or times, Stop date: 02/16/15 21:24:00 Sodium No 250 mL, Memoria Chloride 02-17 Route: l 0.9% IV 00:52: IVPB, [place] 00 Start date: 02/16/15 19:52:00, Duration: 30 day, Stop date: 03/18/15 19:51:00, PRN Line Flush BD Normal No Notes: Memori a Saline 02-17 (Same as: l Flush 00:52: BD [place] Posiflush) Morphine No Notes: Memoria 02-17 (Same l 00:28: as:MORPhin Maciej 00 e Sulfate) Nitroglycer No Notes: Eleazar hilton in 02-17 (Same l 00:28: as:Nitroqu Maciej 00 ick, Nitrostat) "Do Not Crush" Sublingual tablet Aspirin No Notes: (Do Eleazar hilton 02-16 Not Crush) l 22:49: Do not [place] 00 crush or chew. Ondansetron No Notes: Eleazar hilton 4-26 (Same as: l 21:22: Zofran) Morphine No Notes: Memoria 4-26 (Same l 21:22: as:MORPhin e Sulfate) Aspirin / No Notes: Memori a Calcium 4-26 Take with l Carbonate 21:22: food. Aspirin 81 Yes 81 mg = 1 Me moria MG Enteric 4-21 tab, PO, l Coated 20:08: Daily, # [place] Tablet 00 90 tab, 0 Refill(s) metoprolol Yes 12.5 mg = Me moria tartrate 25 4-21 0.5 tab, l mg oral 20:08: PO, BID, # Herm sho tablet 00 90 tab, 0 Refill(s) clopidogrel Yes 75 mg = 1 M emoria 75 mg oral 4-21 tab, PO, l tablet 20:08: Daily, # [place] 00 90 tab, 0 Refill(s) atorvastati Yes 20 mg = 1 M emoria n 20 mg 4-21 tab, PO, l oral tablet 20:08: Bedtime, # Maciej 00 90 tab, 0 Refill(s) metoprolol No Notes: Memor ia tartrate 4-21 (Same as: l 14:00: Lopressor) 12.5mg=1/ 4 X 50 mg tab. Lovenox No Notes: Memoria 4-21 (Same as: l 14:00: Lovenox) clopidogrel No Notes: Eleazar hilton 4-21 (Same As: l 14:00: Plavix) Aspirin / No Notes: Do Mem oria Calcium 4-21 not crush l Carbonate 14:00: or chew. (Same As: Ecotrin) Saline No Notes: Memoria Flush 0.9% 4-21 (Same as: l 14:00: BD Posiflush) Adenosine No 41.6178 Memor ia 4-21 mg, Route: l 03:42: IVP, ONCE, Dosing Weight 49.545, kg, Priority: Routine, Start date: 12/16/13 22:42:00, Stop date: 12/16/13 22:42:00 atorvastati No Notes: Eleazar hilton n 12-17 (Same As: l 03:28: Lipitor) [place] 00 Saline No Notes: Memoria Flush 0.9% 12-17 (Same as: l 03:25: BD Maciej 00 Posiflush) Nitroglycer No Notes: Eleazar hilton in 12-17 (Same l 03:25: as:Nitroqu Maciej 00 ick, Nitrostat) "Do Not Crush" Sublingual tablet atorvastati No 20 mg = 1 M emoria n 20 mg 12-17 tab, PO, l oral tablet 01:48: Bedtime, # Maciej 00 30 tab, 0 Refill(s) clopidogrel No 75 mg = 1 M emoria 75 mg oral 12-17 tab, PO, l tablet 01:48: Daily, 0 Maicej 00 Refill(s) Metoprolol No 12.5 mg = Me moria Tartrate 25 12-17 0.5 tab, l mg oral 01:47: PO, BID, 0 Herm sho tablet 00 Refill(s) Aspirin Low No = 1 tab, Me moria Dose 81 mg 12-17 PO, Daily, l oral tablet 01:46: 0 Kristopher n 00 Refill(s) Sodium No 1,000 mL, Memori a Chloride 20 1,000 l 0.154 23:43: ml/hr, [place] MEQ/ML 00 Infuse Injectable Over: 1 Solution hr, Route: IV, 1,000, Drug form: INJ, ONCE, Priority: STAT, Dosing Weight 48.636 kg, Start date: 12/16/13 18:43:00, Duration: 1 doses or times, Stop date: 12/16/13 18:43:00 Iohexol No Special Memoria 20 Instructio l 21:17: ns: Dose = [place] 00 2.2ml/kg, Max dose = 100ml -- "To be infused by Radiology Staff ONLY" Sodium No 1,000 mL, Memori a Chloride 4-20 1,000 l 0.154 19:43: ml/hr, Maciej MEQ/ML 00 Infuse Injectable Over: 1 Solution hr, Route: IV, 1,000, Drug form: INJ, ONCE, Priority: STAT, Dosing Weight 48.636 kg, Start date: 12/16/13 14:43:00, Duration: 1 doses or times, Stop date: 12/16/13 14:43:00 Sodium No 1,000 mL, Memori a Chloride 4-20 1,000 l 0.154 19:36: ml/hr, Maciej MEQ/ML 00 Infuse Injectable Over: 1 Solution hr, Route: IV, ONCE, Priority: STAT, Dosing Weight 48.636 kg, Start date: 12/16/13 14:36:00, Duration: 1 doses or times, Stop date: 12/16/13 14:36:00 GI cocktail No Notes: Eleazar hilton 4-20 G.I. l 17:54: Cocktail = Maciej 00 antacid with simethicon e 22.5 mL - lidocaine viscous 7.5 mL Aspirin / No Notes: (Do Me moria Calcium 4-20 Not Crush) l Carbonate 17:43: Do not Caroline nn 00 crush or chew. Aspirin 81 No 81 mg, 1 Mem oria MG Chewable 3-14 tab, l Tablet 14:00: Route: PO, Caroline nn 00 Drug form: CHEWTAB, Daily, Dosing Weight 63.636, kg, Start date: 11/09/13 9:00:00, Duration: 30 day, Stop date: 12/08/13 9:00:00Tak e with food. atorvastati No 20 mg, 1 Me moria n 3-14 tab, l 02:00: Route: PO, [place] 00 Drug form: TAB, Bedtime, Dosing Weight 63.636, kg, Start date: 11/08/13 21:00:00, Duration: 30 day, Stop date: 12/07/13 21:00:00(S nino As: Lipitor) metoprolol Yes 12.5 mg = Me moria tartrate 25 3-13 0.5 tab, l mg oral 20:52: PO, BID, # Herm sho tablet 00 30 tab, 0 Refill(s) clopidogrel Yes 75 mg = 1 M emoria 75 MG Oral 3-13 tab, PO, l Tablet 20:52: Daily, # Maciej [Plavix] 00 30 tab, 0 Refill(s) atorvastati Yes 20 mg = 1 M emoria n 20 mg 3-13 tab, PO, l oral tablet 20:52: Bedtime, # [place] 00 30 tab, 0 Refill(s) Aspirin 81 Yes 81 mg = 1 Me moria MG Chewable 3-13 tab, PO, l Tablet 20:52: Daily, # Maciej 00 60 tab, 0 Refill(s) Plavix No 75 mg, 1 Memoria 3-13 tab, l 14:00: Route: PO, Drug form: TAB, Daily, Dosing Weight 63.636, kg, Start date: 11/08/13 9:00:00, Duration: 30 day, Stop date: 12/07/13 9:00:00(Sa me As: Plavix) Saline No 5 ml, Memoria Flush 0.9% 3-13 Route: l 14:00: MISC, Drug Form: INJ, Dosing Weight 63.636, kg, Q12H, Start date: 11/08/13 9:00:00, Duration: 30 day, Stop date: 12/07/13 21:00:00(S nino as: BD Posiflush) Lovenox No 40 mg, 0.4 Eleazar hilton 3-13 mL, Route: l 14:00: SUB-Q, Drug form: INJ, Q24H, Dosing Weight 63.636, kg, Start date: 11/08/13 9:00:00, Duration: 30 day, Stop date: 12/07/13 9:00:00(Sa me as: Lovenox) Tylenol No 650 mg, 2 Memor ia 3-13 tab, l 13:15: Route: PO, Drug form: TAB, Q4H, Dosing Weight 63.636, kg, PRN Pain, Start date: 11/08/13 8:15:00, Duration: 30 day, Stop date: 12/08/13 8:14:00Do not exceed 4 gm/day. (Same as: Tylenol) Saline No 5 ml, Memoria Flush 0.9% 11-08 Route: l 12:06: MISC, Drug Maciej 00 Form: INJ, Dosing Weight 63.636, kg, PRN, PRN Line Flush, Start date: 11/08/13 7:06:00, Duration: 30 day, Stop date: 12/08/13 7:05:00([facility] as: BD Posiflush) Nitroglycer No 0.4 mg, 1 M emoria in 11-08 tab, l 12:06: Route: SL, Maciej Drug form: TAB, Q5Min, Dosing Weight 63.636, kg, PRN Chest Pain, Start date: 11/08/13 7:06:00, Duration: 30 day, Stop date: 12/08/13 7:01:00( me as:Nitroqu ick, Nitrostat) "Do Not Crush" Sublingual tablet Aspirin 81 No 324 mg, Eleazar hilton MG Chewable 11-08 Route: PO, l Tablet 10:15: Drug form: Caroline nn 00 CHEWTAB, ONCE, Dosing Weight 63.636, kg, Priority: STAT, Start date: 11/08/13 5:15:00, Stop date: 11/08/13 5:15:00 Vital Signs Vital Name Observation Time Observation Value Comments Source Systolic (mm Hg) 2017-01-19 23:16:00 [facility] Diastolic (mm Hg) 2017-01-19 23:16:00 [facility] Respitory Rate 2017-01-19 23:16:00 [facility] Systolic (mm Hg) 2017-01-19 22:28:00 [facility] [place] Diastolic (mm Hg) 2017-01-19 22:28:00 [facility] Respitory Rate 2017-01-19 22:28:00 [facility] Respitory Rate 2017-01-19 21:00:00 [facility] [place] Systolic (mm Hg) 2017-01-19 20:00:00 [facility] Diastolic (mm Hg) 2017-01-19 20:00:00 [facility] [place] Weight 2017-01-19 17:23:00 [facility] BMI Calculated 2017-01-19 17:23:00 [facility] [place] Height 2017-01-19 17:23:00 152.4 cm [facility] Temperature Oral (F) 2017-01-19 17:23:00 97.0 F [facility] [place] Heart Rate 2017-01-19 17:23:00 [facility] Systolic (mm Hg) 2017-01-17 02:10:00 [facility] [place] Diastolic (mm Hg) 2017-01-17 02:10:00 [facility] Respitory Rate 2017-01-17 02:10:00 [facility] [place] Systolic (mm Hg) 2017-01-17 01:21:00 [facility] [place] Diastolic (mm Hg) 2017-01-17 01:21:00 [facility] Respitory Rate 2017-01-17 01:21:00 [facility] Temperature Oral (F) 2017-01-17 01:21:00 98.1 F [facility] Systolic (mm Hg) 2017-01-17 00:28:00 [facility] [place] Diastolic (mm Hg) 2017-01-17 00:28:00 [facility] Respitory Rate 2017-01-17 00:28:00 [facility] [place] Heart Rate 2017-01-16 23:24:00 [facility] Temperature Oral (F) 2017-01-16 23:24:00 98 F [facility] Weight 2017-01-16 23:24:00 [facility] [place] Heart Rate 2016-11-29 03:44:00 [facility] Systolic (mm Hg) 2016-11-29 03:44:00 [facility] Diastolic (mm Hg) 2016-11-29 03:44:00 [facility] Respitory Rate 2016-11-29 03:44:00 [facility] Temperature Oral (F) 2016-11-29 03:44:00 98.7 F [facility] Heart Rate 2016-11-29 03:24:00 [facility] [place] Respitory Rate 2016-11-29 03:24:00 [facility] [place] Systolic (mm Hg) 2016-11-29 03:24:00 [facility] Diastolic (mm Hg) 2016-11-29 03:24:00 [facility] [place] Heart Rate 2016-11-29 02:51:00 [facility] [place] Respitory Rate 2016-11-29 02:51:00 [facility] [place] Systolic (mm Hg) 2016-11-29 02:51:00 [facility] [place] Diastolic (mm Hg) 2016-11-29 02:51:00 [facility] Weight 2016-11-29 00:21:00 [facility] BMI Calculated 2016-11-29 00:21:00 [facility] Height 2016-11-29 00:21:00 152.4 cm [facility] Temperature Oral (F) 2016-11-29 00:21:00 98.6 F [facility] Respitory Rate 2016-11-07 02:47:00 [facility] Heart Rate 2016-11-07 02:47:00 [facility] [place] Temperature Oral (F) 2016-11-07 02:47:00 98.2 F [facility] [place] Systolic (mm Hg) 2016-11-07 02:47:00 [facility] Diastolic (mm Hg) 2016-11-07 02:47:00 [facility] [place] Heart Rate 2016-11-07 02:22:00 [facility] Respitory Rate 2016-11-07 02:22:00 [facility] [place] Systolic (mm Hg) 2016-11-07 02:22:00 [facility] [place] Diastolic (mm Hg) 2016-11-07 02:22:00 [facility] Weight 2016-11-06 23:37:00 [facility] [place] Heart Rate 2016-11-06 23:37:00 [facility] [place] Temperature Oral (F) 2016-11-06 23:37:00 98.3 F [facility] Respitory Rate 2016-11-06 23:37:00 [facility] Systolic (mm Hg) 2016-11-06 23:37:00 [facility] [place] Diastolic (mm Hg) 2016-11-06 23:37:00 [facility] Respitory Rate 2016-10-11 18:24:00 [facility] [place] Temperature Oral (F) 2016-10-11 18:24:00 97.9 F [facility] [place] Systolic (mm Hg) 2016-10-11 18:24:00 [facility] [place] Diastolic (mm Hg) 2016-10-11 18:24:00 [facility] Heart Rate 2016-10-11 18:24:00 [facility] [place] Heart Rate 2016-10-11 13:53:00 [facility] Systolic (mm Hg) 2016-10-11 13:53:00 [facility] [place] Diastolic (mm Hg) 2016-10-11 13:53:00 [facility] [place] Temperature Oral (F) 2016-10-11 13:53:00 98.1 F [facility] Temperature Oral (F) 2016-10-11 10:16:00 99.0 F [facility] [place] Respitory Rate 2016-10-11 10:16:00 [facility] Heart Rate 2016-10-11 10:16:00 [facility] Systolic (mm Hg) 2016-10-11 10:16:00 [facility] [place] Diastolic (mm Hg) 2016-10-11 10:16:00 [facility] Weight 2016-10-11 06:46:00 [facility] BMI Calculated 2016-10-11 06:46:00 [facility] [place] Height 2016-10-11 06:46:00 152.4 cm [facility] Respitory Rate 2016-10-11 06:39:00 [facility] Height 2016-10-10 17:48:00 152.4 cm [facility] BMI Calculated 2016-10-10 17:48:00 [facility] [place] Weight 2016-10-10 17:48:00 [facility] [place] BMI Calculated 2016-09-15 04:26:00 [facility] [place] Weight 2016-09-15 04:26:00 [facility] [place] Height 2016-09-15 04:26:00 152.4 cm [facility] [place] Systolic (mm Hg) 2016-09-15 04:26:00 [facility] [place] Diastolic (mm Hg) 2016-09-15 04:26:00 [facility] [place] Respitory Rate 2016-09-15 04:26:00 [facility] Heart Rate 2016-09-15 04:26:00 [facility] [place] Temperature Oral (F) 2016-09-15 04:26:00 98.5 F [facility] Respitory Rate 2016-04-14 06:22:00 [facility] Temperature Oral (F) 2016-04-14 06:22:00 98.7 F [facility] Systolic (mm Hg) 2016-04-14 06:22:00 [facility] [place] Diastolic (mm Hg) 2016-04-14 06:22:00 [facility] [place] Heart Rate 2016-04-14 06:22:00 [facility] [place] BMI Calculated 2016-04-14 02:12:00 [facility] Weight 2016-04-14 02:12:00 [facility] Temperature Oral (F) 2016-04-14 02:12:00 99.2 F [facility] [place] Height 2016-04-14 02:12:00 152.4 cm [facility] [place] Respitory Rate 2016-04-14 02:12:00 [facility] [place] Systolic (mm Hg) 2016-04-14 02:12:00 [facility] [place] Diastolic (mm Hg) 2016-04-14 02:12:00 [facility] [place] Heart Rate 2016-04-14 02:12:00 [facility] Temperature Oral (F) 2016-03-12 17:00:00 97.8 F [facility] Heart Rate 2016-03-12 17:00:00 [facility] Respitory Rate 2016-03-12 17:00:00 [facility] [place] Systolic (mm Hg) 2016-03-12 17:00:00 [facility] [place] Diastolic (mm Hg) 2016-03-12 17:00:00 [facility] Respitory Rate 2016-03-12 12:54:00 [facility] [place] Systolic (mm Hg) 2016-03-12 12:30:00 [facility] [place] Diastolic (mm Hg) 2016-03-12 12:30:00 [facility] Respitory Rate 2016-03-12 12:30:00 [facility] [place] Heart Rate 2016-03-12 12:30:00 [facility] [place] Temperature Oral (F) 2016-03-12 12:30:00 98.2 F [facility] [place] Temperature Oral (F) 2016-03-12 10:26:00 98.0 F [facility] [place] Heart Rate 2016-03-12 10:26:00 [facility] [place] Systolic (mm Hg) 2016-03-12 10:26:00 [facility] [place] Diastolic (mm Hg) 2016-03-12 10:26:00 [facility] Height 2016-03-11 19:45:00 152.4 cm [facility] BMI Calculated 2016-03-11 19:45:00 [facility] [place] Weight 2016-03-11 19:45:00 [facility] [place] Respitory Rate 2016-03-06 01:44:00 [facility] [place] Systolic (mm Hg) 2016-03-06 01:44:00 [facility] [place] Diastolic (mm Hg) 2016-03-06 01:44:00 [facility] [place] Heart Rate 2016-03-06 01:44:00 [facility] Temperature Oral (F) 2016-03-06 01:44:00 98.1 F [facility] BMI Calculated 2016-03-05 21:55:00 [facility] Weight 2016-03-05 21:55:00 [facility] Systolic (mm Hg) 2016-03-05 21:55:00 [facility] [place] Diastolic (mm Hg) 2016-03-05 21:55:00 [facility] Heart Rate 2016-03-05 21:55:00 [facility] [place] Height 2016-03-05 21:55:00 152.4 cm [facility] [place] Temperature Oral (F) 2016-03-05 21:55:00 98.3 F [facility] [place] Respitory Rate 2016-03-05 21:55:00 [facility] [place] Respitory Rate 2016-03-01 01:23:00 [facility] [place] Systolic (mm Hg) 2016-03-01 01:23:00 [facility] [place] Diastolic (mm Hg) 2016-03-01 01:23:00 [facility] [place] Temperature Oral (F) 2016-03-01 01:23:00 98.2 F [facility] [place] Heart Rate 2016-03-01 01:23:00 [facility] Respitory Rate 2016-02-29 23:25:00 [facility] [place] Temperature Oral (F) 2016-02-29 22:27:00 98.3 F [facility] [place] Heart Rate 2016-02-29 22:27:00 [facility] [place] Respitory Rate 2016-02-29 22:27:00 [facility] Systolic (mm Hg) 2016-02-29 22:27:00 [facility] [place] Diastolic (mm Hg) 2016-02-29 22:27:00 [facility] [place] Respitory Rate 2015-09-05 14:47:00 [facility] [place] Systolic (mm Hg) 2015-09-05 14:47:00 [facility] [place] Diastolic (mm Hg) 2015-09-05 14:47:00 [facility] [place] Heart Rate 2015-09-05 14:47:00 [facility] Weight 2015-09-05 11:00:00 [facility] Systolic (mm Hg) 2015-09-05 10:00:00 [facility] [place] Diastolic (mm Hg) 2015-09-05 10:00:00 [facility] [place] Respitory Rate 2015-09-05 10:00:00 [facility] Heart Rate 2015-09-05 10:00:00 [facility] [place] Respitory Rate 2015-09-05 06:00:00 [facility] [place] Systolic (mm Hg) 2015-09-05 06:00:00 [facility] [place] Diastolic (mm Hg) 2015-09-05 06:00:00 [facility] Heart Rate 2015-09-05 06:00:00 [facility] Weight 2015-09-04 11:00:00 [facility] [place] Weight 2015-09-04 09:15:00 [facility] [place] BMI Calculated 2015-09-04 09:15:00 [facility] [place] Height 2015-09-04 09:15:00 160.02 cm [facility] [place] Temperature Oral (F) 2015-09-04 09:06:00 98.3 F [facility] [place] Height 2015-09-04 03:35:00 152.4 cm [facility] BMI Calculated 2015-09-04 03:35:00 [facility] Temperature Oral (F) 2015-09-04 03:35:00 98.7 F [facility] Systolic (mm Hg) 2015-07-16 13:56:00 [facility] [place] Diastolic (mm Hg) 2015-07-16 13:56:00 [facility] Respitory Rate 2015-07-16 13:56:00 [facility] [place] Heart Rate 2015-07-16 13:56:00 [facility] Temperature Oral (F) 2015-07-16 13:56:00 98.0 F [facility] Systolic (mm Hg) 2015-07-16 13:55:00 [facility] [place] Diastolic (mm Hg) 2015-07-16 13:55:00 [facility] [place] Respitory Rate 2015-07-16 13:55:00 [facility] Heart Rate 2015-07-16 13:55:00 [facility] [place] Temperature Oral (F) 2015-07-16 13:55:00 97.4 F [facility] Systolic (mm Hg) 2015-07-16 10:00:00 [facility] [place] Diastolic (mm Hg) 2015-07-16 10:00:00 [facility] Respitory Rate 2015-07-16 10:00:00 [facility] [place] Heart Rate 2015-07-16 10:00:00 [facility] Temperature Oral (F) 2015-07-16 10:00:00 97.9 F [facility] Height 2015-07-16 01:30:00 152.4 cm [facility] Weight 2015-07-16 01:30:00 [facility] [place] BMI Calculated 2015-07-16 01:30:00 [facility] [place] Height 2015-07-15 18:10:00 152.4 cm [facility] [place] BMI Calculated 2015-07-15 18:10:00 [facility] [place] Weight 2015-07-15 18:10:00 [facility] [place] Weight 2015-07-05 04:10:00 [facility] [place] Height 2015-07-05 04:10:00 152.4 cm [facility] BMI Calculated 2015-07-05 04:10:00 [facility] Temperature Oral (F) 2015-07-05 04:10:00 98.3 F [facility] Respitory Rate 2015-07-05 04:10:00 [facility] [place] Heart Rate 2015-07-05 04:10:00 [facility] [place] Systolic (mm Hg) 2015-07-05 04:10:00 [facility] Diastolic (mm Hg) 2015-07-05 04:10:00 [facility] BMI Calculated 2015-07-04 18:05:00 [facility] Weight 2015-07-04 18:05:00 [facility] [place] Height 2015-07-04 18:05:00 152.4 cm [facility] [place] Temperature Oral (F) 2015-07-04 18:05:00 97.9 F [facility] [place] Respitory Rate 2015-07-04 18:05:00 [facility] [place] Heart Rate 2015-07-04 18:05:00 [facility] [place] Systolic (mm Hg) 2015-07-04 18:05:00 [facility] [place] Diastolic (mm Hg) 2015-07-04 18:05:00 [facility] [place] BMI Calculated 2015-06-04 04:13:00 [facility] [place] Weight 2015-06-04 04:13:00 [facility] Height 2015-06-04 04:13:00 152.4 cm [facility] Temperature Oral (F) 2015-06-04 04:13:00 98.8 F [facility] [place] Respitory Rate 2015-06-04 04:13:00 [facility] Heart Rate 2015-06-04 04:13:00 [facility] Systolic (mm Hg) 2015-06-04 04:13:00 [facility] Diastolic (mm Hg) 2015-06-04 04:13:00 [facility] [place] Systolic (mm Hg) 2015-05-18 22:47:00 [facility] Diastolic (mm Hg) 2015-05-18 22:47:00 [facility] Temperature Oral (F) 2015-05-18 22:47:00 96.6 F [facility] Heart Rate 2015-05-18 22:47:00 [facility] Respitory Rate 2015-05-18 22:47:00 [facility] Systolic (mm Hg) 2015-05-18 22:30:00 [facility] [place] Diastolic (mm Hg) 2015-05-18 22:30:00 [facility] Systolic (mm Hg) 2015-05-18 21:00:00 [facility] Diastolic (mm Hg) 2015-05-18 21:00:00 [facility] [place] Temperature Oral (F) 2015-05-18 21:00:00 98.1 F [facility] [place] Respitory Rate 2015-05-18 21:00:00 [facility] [place] Temperature Oral (F) 2015-05-18 19:21:00 98.2 F [facility] Heart Rate 2015-05-18 19:21:00 [facility] [place] Respitory Rate 2015-05-18 19:21:00 [facility] [place] Heart Rate 2015-05-18 17:10:00 [facility] Respitory Rate 2015-05-09 20:00:00 [facility] [place] Systolic (mm Hg) 2015-05-09 20:00:00 [facility] [place] Diastolic (mm Hg) 2015-05-09 20:00:00 [facility] [place] Temperature Oral (F) 2015-05-09 20:00:00 97.5 F [facility] [place] Temperature Oral (F) 2015-05-09 19:10:00 97.5 F [facility] [place] Systolic (mm Hg) 2015-05-09 19:10:00 [facility] [place] Diastolic (mm Hg) 2015-05-09 19:10:00 [facility] Respitory Rate 2015-05-09 19:10:00 [facility] Systolic (mm Hg) 2015-05-09 18:41:00 [facility] [place] Diastolic (mm Hg) 2015-05-09 18:41:00 [facility] [place] Weight 2015-05-09 17:37:00 [facility] [place] BMI Calculated 2015-05-09 17:37:00 [facility] Height 2015-05-09 17:37:00 152.4 cm [facility] Temperature Oral (F) 2015-05-09 17:37:00 98.9 F [facility] Respitory Rate 2015-05-09 17:37:00 [facility] Heart Rate 2015-05-09 17:37:00 [facility] [place] Systolic (mm Hg) 2015-05-03 00:04:00 [facility] [place] Diastolic (mm Hg) 2015-05-03 00:04:00 [facility] Heart Rate 2015-05-03 00:04:00 [facility] Respitory Rate 2015-05-03 00:04:00 [facility] Temperature Oral (F) 2015-05-03 00:04:00 98.5 F [facility] Heart Rate 2015-05-02 21:17:00 [facility] [place] Respitory Rate 2015-05-02 21:17:00 [facility] Systolic (mm Hg) 2015-05-02 21:17:00 [facility] Diastolic (mm Hg) 2015-05-02 21:17:00 [facility] Heart Rate 2015-05-02 20:24:00 [facility] [place] Temperature Oral (F) 2015-05-02 20:24:00 98.1 F [facility] [place] Systolic (mm Hg) 2015-05-02 20:24:00 [facility] Diastolic (mm Hg) 2015-05-02 20:24:00 [facility] Respitory Rate 2015-05-02 20:24:00 [facility] [place] Temperature Oral (F) 2015-05-02 18:35:00 98.9 F [facility] Systolic (mm Hg) 2015-04-11 19:45:00 [facility] [place] Diastolic (mm Hg) 2015-04-11 19:45:00 [facility] [place] Temperature Oral (F) 2015-04-11 19:45:00 98.7 F [facility] [place] Respitory Rate 2015-04-11 19:45:00 [facility] [place] Heart Rate 2015-04-11 19:45:00 [facility] Weight 2015-04-11 16:35:00 [facility] [place] Temperature Oral (F) 2015-04-11 16:35:00 98.4 F [facility] [place] Systolic (mm Hg) 2015-04-11 16:35:00 [facility] [place] Diastolic (mm Hg) 2015-04-11 16:35:00 [facility] [place] Respitory Rate 2015-04-11 16:35:00 [facility] Heart Rate 2015-04-11 16:35:00 [facility] [place] Systolic (mm Hg) 2015-03-30 22:06:00 [facility] [place] Diastolic (mm Hg) 2015-03-30 22:06:00 [facility] Temperature Oral (F) 2015-03-30 22:06:00 97.9 F [facility] [place] Heart Rate 2015-03-30 22:06:00 [facility] [place] Respitory Rate 2015-03-30 22:06:00 [facility] BMI Calculated 2015-03-30 19:44:00 [facility] [place] Height 2015-03-30 19:44:00 152.4 cm [facility] Systolic (mm Hg) 2015-03-30 19:44:00 [facility] Diastolic (mm Hg) 2015-03-30 19:44:00 [facility] Respitory Rate 2015-03-30 19:44:00 [facility] Heart Rate 2015-03-30 19:44:00 [facility] [place] Weight 2015-03-30 19:44:00 [facility] Temperature Oral (F) 2015-03-30 19:44:00 97.9 F [facility] Respitory Rate 2015-03-24 21:57:00 [facility] Temperature Oral (F) 2015-03-24 21:57:00 97.9 F [facility] Heart Rate 2015-03-24 21:57:00 [facility] Systolic (mm Hg) 2015-03-24 21:57:00 [facility] [place] Diastolic (mm Hg) 2015-03-24 21:57:00 [facility] [place] Heart Rate 2015-03-24 17:28:00 [facility] Temperature Oral (F) 2015-03-24 17:28:00 98.8 F [facility] [place] Respitory Rate 2015-03-24 17:28:00 [facility] Systolic (mm Hg) 2015-03-24 17:28:00 [facility] [place] Diastolic (mm Hg) 2015-03-24 17:28:00 [facility] [place] Heart Rate 2015-03-24 13:08:00 [facility] [place] Temperature Oral (F) 2015-03-24 13:08:00 98.4 F [facility] Respitory Rate 2015-03-24 13:08:00 [facility] [place] Systolic (mm Hg) 2015-03-24 13:08:00 [facility] [place] Diastolic (mm Hg) 2015-03-24 13:08:00 [facility] [place] BMI Calculated 2015-03-22 01:41:00 [facility] [place] Weight 2015-03-22 01:41:00 [facility] Height 2015-03-22 01:41:00 152.4 cm [facility] BMI Calculated 2015-03-21 18:42:00 [facility] Weight 2015-03-21 18:42:00 [facility] [place] Height 2015-03-21 18:42:00 152.4 cm [facility] [place] Systolic (mm Hg) 2015-03-11 22:39:00 [facility] Diastolic (mm Hg) 2015-03-11 22:39:00 [facility] Respitory Rate 2015-03-11 22:39:00 [facility] [place] Heart Rate 2015-03-11 22:39:00 [facility] Temperature Oral (F) 2015-03-11 22:39:00 98.1 F [facility] BMI Calculated 2015-03-11 19:44:00 [facility] [place] Weight 2015-03-11 19:44:00 [facility] Systolic (mm Hg) 2015-03-11 19:44:00 [facility] Diastolic (mm Hg) 2015-03-11 19:44:00 [facility] Temperature Oral (F) 2015-03-11 19:44:00 97.9 F [facility] [place] Heart Rate 2015-03-11 19:44:00 [facility] [place] Respitory Rate 2015-03-11 19:44:00 [facility] [place] Height 2015-03-11 19:44:00 152.4 cm [facility] [place] Temperature Oral (F) 2015-03-05 10:15:00 97.9 F [facility] Systolic (mm Hg) 2015-03-05 10:15:00 [facility] Diastolic (mm Hg) 2015-03-05 10:15:00 [facility] Respitory Rate 2015-03-05 10:15:00 [facility] [place] Respitory Rate 2015-03-05 09:53:00 [facility] [place] Temperature Oral (F) 2015-03-05 09:53:00 97.8 F [facility] Systolic (mm Hg) 2015-03-05 09:53:00 [facility] [place] Diastolic (mm Hg) 2015-03-05 09:53:00 [facility] Respitory Rate 2015-03-05 06:30:00 [facility] [place] Systolic (mm Hg) 2015-03-05 06:30:00 [facility] [place] Diastolic (mm Hg) 2015-03-05 06:30:00 [facility] [place] Temperature Oral (F) 2015-03-05 06:20:00 97.7 F [facility] Heart Rate 2015-03-05 06:20:00 [facility] Heart Rate 2015-03-05 05:46:00 [facility] [place] Height 2015-03-05 05:46:00 152.4 cm [facility] BMI Calculated 2015-03-05 05:46:00 [facility] Weight 2015-03-05 05:46:00 [facility] Systolic (mm Hg) 2015-02-25 20:55:00 [facility] Diastolic (mm Hg) 2015-02-25 20:55:00 [facility] [place] Temperature Oral (F) 2015-02-25 20:55:00 97.9 F [facility] [place] Heart Rate 2015-02-25 20:55:00 [facility] Respitory Rate 2015-02-25 20:55:00 [facility] Temperature Oral (F) 2015-02-25 17:18:00 98 F [facility] [place] Heart Rate 2015-02-25 17:18:00 [facility] Respitory Rate 2015-02-25 17:18:00 [facility] [place] Systolic (mm Hg) 2015-02-25 17:18:00 [facility] Diastolic (mm Hg) 2015-02-25 17:18:00 [facility] Systolic (mm Hg) 2015-02-25 12:00:00 [facility] Diastolic (mm Hg) 2015-02-25 12:00:00 [facility] Respitory Rate 2015-02-25 12:00:00 [facility] Heart Rate 2015-02-25 12:00:00 [facility] Temperature Oral (F) 2015-02-25 12:00:00 97.8 F [facility] Height 2015-02-24 16:11:00 152.4 cm [facility] BMI Calculated 2015-02-24 16:11:00 [facility] [place] Weight 2015-02-24 16:11:00 [facility] Heart Rate 2015-02-18 20:17:00 [facility] [place] Temperature Oral (F) 2015-02-18 20:17:00 97.3 F [facility] [place] Systolic (mm Hg) 2015-02-18 20:17:00 [facility] [place] Diastolic (mm Hg) 2015-02-18 20:17:00 [facility] Respitory Rate 2015-02-18 20:17:00 [facility] [place] Heart Rate 2015-02-18 16:13:00 [facility] Respitory Rate 2015-02-18 16:13:00 [facility] Systolic (mm Hg) 2015-02-18 16:13:00 [facility] [place] Diastolic (mm Hg) 2015-02-18 16:13:00 [facility] Temperature Oral (F) 2015-02-18 16:13:00 97.5 F [facility] Temperature Oral (F) 2015-02-18 12:19:00 97.9 F [facility] [place] Systolic (mm Hg) 2015-02-18 12:19:00 [facility] Diastolic (mm Hg) 2015-02-18 12:19:00 [facility] Respitory Rate 2015-02-18 12:19:00 [facility] Heart Rate 2015-02-18 12:19:00 [facility] [place] Weight 2015-02-17 02:30:00 [facility] Height 2015-02-17 02:30:00 152.4 cm [facility] BMI Calculated 2015-02-17 02:30:00 [facility] Weight 2015-02-16 20:42:00 [facility] BMI Calculated 2015-02-16 20:42:00 [facility] [place] Height 2015-02-16 20:42:00 152.4 cm [facility] Respitory Rate 2013-12-25 19:27:00 [facility] [place] Heart Rate 2013-12-25 19:27:00 [facility] Diastolic (mm Hg) 2013-12-25 19:27:00 [facility] [place] Systolic (mm Hg) 2013-12-25 19:27:00 [facility] Temperature Oral (F) 2013-12-25 19:27:00 98.3 F [facility] [place] BMI Calculated 2013-12-25 16:48:00 [facility] Weight 2013-12-25 16:48:00 [facility] Height 2013-12-25 16:48:00 152.4 cm [facility] Respitory Rate 2013-12-25 16:48:00 [facility] Heart Rate 2013-12-25 16:48:00 [facility] Diastolic (mm Hg) 2013-12-25 16:48:00 [facility] Systolic (mm Hg) 2013-12-25 16:48:00 [facility] Temperature Oral (F) 2013-12-25 16:48:00 98.8 F [facility] [place] Heart Rate 2013-12-23 00:27:00 [facility] [place] Systolic (mm Hg) 2013-12-23 00:27:00 [facility] [place] Respitory Rate 2013-12-23 00:27:00 [facility] [place] Temperature Oral (F) 2013-12-23 00:27:00 98.3 F [facility] [place] Diastolic (mm Hg) 2013-12-23 00:27:00 [facility] Diastolic (mm Hg) 2013-12-22 23:06:00 [facility] [place] Temperature Oral (F) 2013-12-22 23:06:00 98.4 F [facility] [place] Systolic (mm Hg) 2013-12-22 23:06:00 [facility] [place] Respitory Rate 2013-12-22 23:06:00 [facility] Heart Rate 2013-12-22 23:06:00 [facility] [place] Weight 2013-12-22 20:46:00 [facility] Temperature Oral (F) 2013-12-22 20:46:00 98.7 F [facility] Systolic (mm Hg) 2013-12-22 20:46:00 [facility] Diastolic (mm Hg) 2013-12-22 20:46:00 [facility] Respitory Rate 2013-12-22 20:46:00 [facility] Heart Rate 2013-12-22 20:46:00 [facility] [place] Diastolic (mm Hg) 2013-12-17 20:30:00 [facility] [place] Respitory Rate 2013-12-17 20:30:00 [facility] [place] Systolic (mm Hg) 2013-12-17 20:30:00 [facility] [place] Systolic (mm Hg) 2013-12-17 19:06:00 [facility] [place] Diastolic (mm Hg) 2013-12-17 19:06:00 [facility] [place] Respitory Rate 2013-12-17 19:06:00 [facility] [place] Systolic (mm Hg) 2013-12-17 18:54:00 [facility] [place] Diastolic (mm Hg) 2013-12-17 18:54:00 [facility] Temperature Oral (F) 2013-12-17 17:09:00 98.1 F [facility] Respitory Rate 2013-12-17 16:50:00 [facility] Temperature Oral (F) 2013-12-17 09:00:00 97.1 F [facility] [place] Height 2013-12-17 02:58:00 152.4 cm [facility] Weight 2013-12-17 02:58:00 [facility] BMI Calculated 2013-12-17 02:58:00 [facility] [place] Temperature Oral (F) 2013-12-17 02:55:00 98.1 F [facility] Height 2013-12-16 17:19:00 152.4 cm [facility] BMI Calculated 2013-12-16 17:19:00 [facility] Weight 2013-12-16 17:19:00 [facility] [place] Heart Rate 2013-12-16 17:19:00 [facility] Temperature Oral (F) 2013-11-08 21:00:00 98 F [facility] Diastolic (mm Hg) 2013-11-08 21:00:00 [facility] [place] Respitory Rate 2013-11-08 21:00:00 [facility] [place] Systolic (mm Hg) 2013-11-08 21:00:00 [facility] Temperature Oral (F) 2013-11-08 19:13:00 97.6 F [facility] [place] Diastolic (mm Hg) 2013-11-08 19:13:00 [facility] [place] Systolic (mm Hg) 2013-11-08 19:13:00 [facility] [place] Respitory Rate 2013-11-08 19:13:00 [facility] [place] Systolic (mm Hg) 2013-11-08 16:18:00 [facility] [place] Respitory Rate 2013-11-08 16:18:00 [facility] [place] Diastolic (mm Hg) 2013-11-08 16:18:00 [facility] Temperature Oral (F) 2013-11-08 11:34:00 99.0 F [facility] [place] Heart Rate 2013-11-08 11:34:00 [facility] Heart Rate 2013-11-08 08:04:00 [facility] [place] BMI Calculated 2013-11-08 04:51:00 [facility] [place] Height 2013-11-08 04:51:00 152.4 cm [facility] Weight 2013-11-08 04:51:00 [facility] Heart Rate 2013-11-08 04:51:00 [facility] [place] Procedures Procedure Date / Time Performing Clinician Source Performed Cardiac catheterization [facility] procedure Stent placement<sup>1</sup> Eleazar rial Maciej Plan of Care Planned Activity Planned Date Details Comments Source Future Scheduled Test 2020-05-29 [facility] Influenza Seasonal [facility] 00:00:00 May to October (>/= 19 yrs) [code = IMM Influenza Seasonal May to October (>/= 19 yrs)] Future Scheduled Test 2015 IMM Pneumococcal Age 65 [facility] 00:00:00 and Up [code = IMM Pneumococcal Age 65 and Up] Future Scheduled Test 2000 Screening for malignant [facility] 00:00:00 neoplasm of colon (procedure) [code = 361398732] Future Scheduled Test 1990 Breast Cancer Scrn [facility] 00:00:00 (Yearly) [code = Breast Cancer Scrn (Yearly)] Encounters Start End Encounter Admission Attending Care Care Encounter Source Date/Time Date/Time Type Type Clinicians Facility Department ID 2020-01-21 2020-01-21 Outpatient E [facility] MED [id number] [facility] 05:31:00 05:31:00 2019-10-15 2019-10-15 Emergency E [facility] [id number] [facility] 13:12:00 13:12:00 2019-05-20 2019-05-20 [id number] 15:19:00 15:19:00 2019-02-25 2019-02-25 Emergency E [facility] [id number] [facility] 10:56:00 10:56:00 2018-08-21 2018-08-21 Emergency [facility] [id number] [place] 18:32:58 18:32:58 Health 2018-08-21 2018-08-21 Emergency [facility] [id number] [place] 17:47:59 17:47:59 Health 2018-08-21 2018-08-21 Emergency [facility] [id number] [place] 16:16:06 16:16:06 Health 2018-08-16 2018-08-16 Emergency [facility] [id number] [place] 22:04:00 22:04:00 Health 2018-08-16 2018-08-16 Emergency [facility] [id number] [place] 21:21:42 21:21:42 Health 2018-05-18 2018-05-18 Emergency [facility] [id number] [place] 14:51:52 14:51:52 Health 2018-03-08 2018-03-08 Emergency [facility] [id number] [place] 15:12:17 15:12:17 Health 2018-01-16 2018-01-16 Emergency [facility] [id number] [place] 17:53:03 17:53:03 Health 2018-01-16 2018-01-16 Emergency [facility] [id number] [place] 00:00:00 00:00:00 Health 2018-01-16 2018-01-16 Outpatient [facility] [id number] [place] 00:00:00 00:00:00 [facility] 2017-11-11 2017-11-11 Emergency E [facility] MED [id number] . 16:37:00 16:37:00 [facility] 2017-01-19 2017-01-19 Outpatient Patel, [facility]SE MHSE [id number] 12:18:00 18:37:00 Mac Bond 2017-01-16 2017-01-16 Outpatient Chayito, [facility] [id number] 18:22:00 21:34:00 Jl 33 Lida 2016-11-28 2016-11-28 Outpatient Ace, [facility] [id number] 19:17:00 23:13:00 Jason 32 Melody 2016-11-06 2016-11-06 Outpatient Nava, [facility]PL [id number] 17:34:00 21:03:00 Zaki 31 [place] 2016-10-10 2016-10-11 Outpatient Ahmed, [facility] [id number] 11:45:00 13:54:00 Jessika Jacek 30 2016-09-14 2016-09-15 Outpatient Weathers, [facility]PL [id number] 21:19:00 00:56:00 Nando Neville 29 2016-04-13 2016-04-14 [facility] Fr[facility] [id number] 21:11:00 01:37:00 Jose 28 Thundiyil 2016-03-11 2016-03-12 Outpatient Ogunbiyi, [facility] [id number] 14:41:00 15:25:00 Khadijat 27 Arinola 2016-03-05 2016-03-05 Outpatient Fadowole, [facility] [id number] 16:54:00 21:21:00 Rachele 26 [place] 2016-02-29 2016-02-29 Outpatient Dianneo, [facility] [id number] 17:25:00 20:29:00 Good 25 2015-09-03 2015-09-05 Outpatient Mateus Dixon [facility] [id number] 21:30:00 10:26:00 B 24 2015-07-15 2015-07-16 Outpatient Anjel, [facility] [id number] 12:00:00 15:30:00 Janet 23 2015-07-04 2015-07-05 Outpatient Dick, [facility] [id number] 22:07:00 01:09:00 Habacuc 22 Breen 2015-07-04 2015-07-04 Outpatient Hemal, [facility] [id number] 11:57:00 14:54:00 Maribel Berkowitz 21 2015-06-03 2015-06-04 Outpatient Jeanie, [facility] [id number] 23:00:00 02:09:00 Luzmaria 20 Aliya 2015-05-18 2015-05-18 Outpatient Jennifer, [facility] [id number] 11:55:00 18:04:00 Indira S 19 2015-05-09 2015-05-09 Outpatient Jennifer, [facility] [id number] 12:15:00 15:10:00 Indira S 18 2015-05-02 2015-05-02 Outpatient Jennifer, [facility] [id number] 13:18:00 19:05:00 Indira S 17 2015-04-11 2015-04-11 Outpatient Yovani, [facility] [id number] 11:25:00 14:47:00 Gilmar Giordano 16 2015-03-30 2015-03-30 Outpatient Charito, [facility] [id number] 14:39:00 17:11:00 Isatu 15 Lucy 2015-03-21 2015-03-24 Outpatient Richmond, [facility] [id number] 13:24:00 17:30:00 Catarino 14 Blaine 2015-03-11 2015-03-11 Outpatient Dick, [facility] [id number] 14:43:00 17:41:00 Habacuc 13 Breen 2015-03-05 2015-03-05 Outpatient Tata RushingIE IE [id number] 00:43:00 05:21:00 Jasbir 12 2015-02-24 2015-02-25 Outpatient LEENA Dixon [facility] [id number] 10:34:00 20:14:00 Tucker 11 2015-02-16 2015-02-18 Outpatient Thu, [facility] [id number] 15:36:00 16:00:00 Kalpna 10 [place] 2013-12-25 2013-12-25 Outpatient Dorothea, [facility] [id number] 11:37:00 14:52:00 Rishabh Valdivia 2013-12-22 2013-12-22 Outpatient Nba, [facility] [id number] 15:43:00 19:29:00 Jann 08 Jl 2013-12-16 2013-12-17 Outpatient Beth, [facility] [id number] 12:18:00 17:45:00 Alvarez 07 2013-11-07 2013-11-08 Outpatient Jazmin, [facility] [id number] 23:50:00 18:00:00 Dustin Results Test Description Test Time Test Comments Results Result Sourc e Comments XR Ribs w/ PA 2018-06-05 Patient: REEMA, Chest Bilateral 23:24:07 LUCIUS Read Date/Time06/05/2018 12:25 CDTReason for Examtrauma- pain right ribcage;Pain (please specify)ReportPA chest and bilateral RIBSINDICATION: Right chest traumaLocation R 16COMPARISON: Chest 2 views 12/30/2013.FINDINGS: Heart and mediastinum are essentially unremarkable. Cardiac arterial stent is noted. Costophrenic angle are clear. Lungs are clear. 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 Final Dictated by: MD Fonseca Daniel RDictated DT/TM: 06/05/2018 11:20 pmSigned by: MD Fonseca Daniel RSigned (Electronic Signature): 06/05/2018 11:24 pm URINE AND STOOL 2017-01-19 Negative [facility] 19:21:00 *NA*(01/19/17 2:21 Maciej PM) URINE AND STOOL 2017-01-19 Negative (01/19/17 Il morial 19:21:00 2:21 PM) [place] URINE AND STOOL 2017-01-19 Negative (01/19/17 Me morial 19:21:00 2:21 PM) [place] URINE AND STOOL 2017-01-19 Negative (01/19/17 Me morial 19:21:00 2:21 PM) [place] URINE AND STOOL 2017-01-19 1 [facility] 19:21:00 [place] URINE AND STOOL 2017-01-19 1 [facility] 19:21:00 [place] URINE AND STOOL 2017-01-19 7.0 [facility] 19:21:00 [place] URINE AND STOOL 2017-01-19 1.008 [facility] 19:21:00 [place] URINE AND STOOL 2017-01-19 Clear (01/19/17 2:21 [facility] 19:21:00 PM) [place] CARDIAC ENZYMES 2017-01-19 3.0 [facility] 18:07:00 [place] CARDIAC ENZYMES 2017-01-19 <0.02 [facility] 18:07:00 [place] CHEM PANEL 2017-01-19 231 [facility] 18:07:00 [place] CHEM PANEL 2017-01-19 9 [facility] 18:07:00 [place] CHEM PANEL 2017-01-19 8.4 [facility] 18:07:00 [place] CHEM PANEL 2017-01-19 1.0 [facility] 18:07:00 [place] CHEM PANEL 2017-01-19 3.6 [facility] 18:07:00 [place] CHEM PANEL 2017-01-19 7 [facility] 18:07:00 [place] CHEM PANEL 2017-01-19 32 [facility] 18:07:00 [place] CHEM PANEL 2017-01-19 104 [facility] 18:07:00 [place] CHEM PANEL 2017-01-19 3.4 [facility] 18:07:00 [place] CHEM PANEL 2017-01-19 141 [facility] 18:07:00 [place] CHEM PANEL 2017-01-19 0.79 [facility] 18:07:00 [place] CHEM PANEL 2017-01-19 3.6 [facility] 18:07:00 [place] CHEM PANEL 2017-01-19 9.1 [facility] 18:07:00 [place] CHEM PANEL 2017-01-19 25 [facility] 18:07:00 [place] CHEM PANEL 2017-01-19 7.2 [facility] 18:07:00 [place] CHEM PANEL 2017-01-19 1.1 [facility] 18:07:00 [place] CHEM PANEL 2017-01-19 111 [facility] 18:07:00 [place] CHEM PANEL 2017-01-19 31 [facility] 18:07:00 [place] CHEM PANEL 2017-01-19 90 [facility] 18:07:00 [place] CHEM PANEL 2017-01-19 73 [facility] 18:07:00 [place] CHEM PANEL 2017-01-19 75 [facility] 18:07:00 [place] HEMATOLOGY 2017-01-19 18:07:00 Test Item Value Reference Range Interpretation Comme nts PTT (test code = PTT) 31.3 s 22.9-35.8 [facility] NmrdrlqOLLWGZBVXC4083-73-28 18:07:008.5[facility] 2017-01-19 18:07:0042.0[facility] ZyprkmzYDLLJFTCEU6017-27-28 18:07:004.92[facility] MeqjkeoESBNNTNBMZ5085-43-44 18:07:0014.4[facility] MwomxgkJSZDBIMZIO7335-10-35 18:07:0014.2[facility] PjiirvpGWIUPUZDEH6719-00-84 18:07:36542Zoaxyjln [place] YTFGLVUJMF7445-69-62 18:07:0034.2[facility] NmdlkrgBKZFBDJPCG7783-40-66 18:07:00 Test Item Value Reference Range Interpretation Comments MCH (test code = MCH) 29.2 pg 27.0-31.0 [facility] JdynepkKBFCMYIFSK4039-03-14 18:07:0085.5[facility]annHEMATOLOGY 2017-01-19 18:07:007.7[facility] FoowlvhCWCEFMRQAS4101-47-26 18:07:00 Test Item Value Reference Range Interpretation Comments PT (test code = PT) 13.7 s 12.0-14.7 [facility] JanfvurUXYZKCKUUZ7120-49-31 18:07:001.03[facility]annHEMATOLOGY 2017-01-19 18:07:000.3[facility] HswxjjwKDZBNHAJZP5921-00-84 18:07:0068.3[facility] BlzvdniGQPAALTNJN5349-51-87 18:07:000.emorial DvfvqxhUDPLVTZOHM7648-05-84 18:07:005.3[facility] MargwxaOZOKJCNUNX1560-99-25 18:07:004.5[facility] [place] ACCTONJQLE6914-56-52 18:07:000.6[facility] DejdikuFWFPPMBZXJ7636-91-44 18:07:001.4 [facility] XvwmjkfRDRNWNDYLL2237-28-33 18:07:007.8[facility]annHEMATOLOGY 2017-01-19 18:07:0018.8[facility]annDR[facility] JBCNTE0658-33-81 00:23:00Positive *ABN*(01/16/17 7:23 PM)[facility] LGMIJN3724-11-31 00:23:00Negative *NA*(01/16/17 7:23 PM)[facility] WCTMKT0769-61-85 00:23:00Negative *NA*(01/16/17 7:23 PM)[facility] TGZWQQ1321-07-77 00:23:00Negative *NA*(01/16/17 7:23 PM)[facility] YYFUBW4175-73-61 00:23:00See Note (01/16/17 7:23 PM)[facility] PITRME1065-61-70 00:23:00Negative *NA*(01/16/17 7:23 PM)[facility] LJARZT3787-43-50 00:23:00Negative *NA*(01/16/17 7:23 PM)[facility] LOHGEX8769-95-44 00:23:00Negative *NA*(01/16/17 7:23 PM)[facility] YCCDG6983-30-66 00:23:00Negative *NA*(01/16/17 7:23 PM)[facility] MAGJK6101-41-70 00:23:00Negative *NA*(01/16/17 7:23 PM)[facility] YLCBC8108-77-46 00:23:00Negative (01/16/17 7:23 PM)[facility] EOWZU8326-54-60 00:23:00Negative (01/16/17 7:23 PM)[facility] WRDMO7561-71-29 00:23:00Negative (01/16/17 7:23 PM)[facility] GJRET9471-10-31 00:23:001.0[facility] EPOKJ6469-61-63 00:23:00Negative (01/16/17 7:23 PM)[facility] JHEOS0364-33-13 00:23:00Slight Cloudy (01/16/17 7:23 PM)[facility] RUBSV0697-25-01 00:23:00 Test Item Value Reference Range Interpretation Comments UA Spec Grav (test code = UA Spec 1.007 1 Grav) [facility] FCTIW7041-42-81 00:23:00 Test Item Value Reference Range Interpretation Comments UA pH (test code = UA pH) 6.0 1 5.0-8.0 [facility] JLEHC4303-93-79 00:23:00Negative (01/16/17 7:23 PM) [facility] KEUQA6447-46-87 00:23:00Yellow *NA*(01/16/17 7:23 PM) [facility]annCARDIAC YESICFN5446-74-72 23:57:00<0.02[facility] [place] CARDIAC JVINWFK4009-83-66 23:57:002.0[facility]annCARDIAC FPZZAXC1879-47-67 23:57:79005Qlljlhnd HermannCARDIAC TRUNEBB3741-59-97 23:57:001.0[facility] [place] CHEM ZKRJX3229-47-30 23:57:0073[facility] HermannCHEM HLJHF8158-53-37 23:57:0029 [facility]annCHEM PXBGU0836-65-90 23:57:49635Qfultmie HermannCHEM PANEL 2017-01-16 23:57:82002Kakyoiat HermannCHEM KQUJU0724-86-85 23:57:0015[facility] HermannCHEM VMNAU5574-15-52 23:57:0011.0[facility]annCHEM IGCMI5878-91-05 23:57:0016[facility]annCHEM KXNRN2227-38-58 23:57:009.4[facility]annCHEM AHHTA2212-38-99 23:57:000.94[facility]annCHEM YXJMM4553-77-48 23:57:14691 [facility]annCHE[facility] JFWUD7188-38-53 23:57:004.0[facility] HermannCHEM PANEL 2017-01-16 23:57:003.6[facility] HermannCHEM AVHMI5819-99-46 23:57:0024[facility]annCHEM ZVEDP9212-12-02 23:57:000.6[facility] HermannCHEM NWPXH7075-46-55 23:57:25072Dtowqdcm HermannCHEM CEZAS9835-18-02 23:57:0029[facility]annCHEM JYRWT9573-27-33 23:57:000.9[facility]annCHEM RFNKA3031-68-19 23:57:003.9 [facility]annCHE[facility] XNIDQ8319-39-97 23:57:007.5[facility] HermannHEMATOLOGY 2017-01-16 23:57:0014.6[facility] ZmywymdGTPVGBATWM5774-89-87 23:57:0042.7[facility] IcuipflPSDFOEQHBH5121-33-94 23:57:0034.2[facility] CrvtupdCYGNSXWHMJ1886-01-93 23:57:0085.3[facility] WhkqzgcXWPDDPEMAK0749-82-07 23:57:00 Test Item Value Reference Range Interpretation Comments MCH (test code = MCH) 29.2 pg 27.0-31.0 [facility] WgukufqAOASJYCRJM7953-90-48 23:57:0014.3[facility] HermannHEMATOLOGY 2017-01-16 23:57:34949Wnzpvmqq NpgjpcdQIOQCSDXNC1703-51-89 23:57:008.0[facility] ShsvhorPZMLRQHUOX2764-12-71 23:57:006.6[facility] CycvfigLLKMYLRBGJ7802-85-48 23:57:005.00[facility] XhqlozbWTHRQPPBVN0237-40-56 23:57:000.8[facility] [place] THMXYYHKPM1950 23:57:004.0[facility] MwjmlshLHJBZFVJTH9232-39-65 23:57:000.5 [facility] YxpfuboRKWQXTYQRU6033-14-14 23:57:000.1[facility]annHEMATOLOGY 2017-01-16 23:57:001.8[facility] StrztixLKCRWSGRJF8410-24-60 23:57:000.2[facility] LqcyzrtSSODJTKRYL9784-02-81 23:57:0060.6[facility] ZmhruidKKQRRGBDIY2157-63-12 23:57:008.3[facility] GquaxnhCXCAXJBAKL5664-83-33 23:57:003.5[facility] [place] ZXVEFIPPLB2014-89-36 23:57:0026.8[facility] JHPIC6209-60-30 02:18:00Negative *NA*(11/28/16 9:18 PM)[facility] ACKYN2680-63-71 02:18:00Negative (11/28/16 9:18 PM)[facility] TWTNU0750-51-07 02:18:001.0[facility] AWJKR8532-89-02 02:18:00Negative (11/28/16 9:18 PM)[facility] TVGQR1937-40-36 02:18:00Negative *NA*(11/28/16 9:18 PM)[facility] KAVBS8677-53-27 02:18:00Moderate *ABN*(11/28/16 9:18 PM)[facility] MUYRB2352-00-49 02:18:00Yellow *NA*(11/28/16 9:18 PM)[facility] RJIFD4629-81-56 02:18:00 Test Item Value Reference Range Interpretation Comments UA pH (test code = UA pH) 6.0 1 5.0-8.0 [facility] UPJFE3087-37-31 02:18:00Negative (11/28/16 9:18 PM) [facility] XDVNF9326-38-36 02:18:00Negative (11/28/16 9:18 PM) [facility] FEHTQ2448-33-86 02:18:00<=1.005 *NA*(11/28/16 9:18 PM)[facility] IJWHJ6635-15-27 02:18:00Clear (11/28/16 9:18 PM) [facility]annCARDIAC XWMJVIF1962-09-29 01:37:00<0.02[facility] CARDIAC WNXKACI9066-39-05 01:37:001.3[facility]annCARDIAC UQIWTUN6354-30-64 01:37:0089[facility]annC[facility]AC ROJHQIT4685-91-28 01:37:001.5[facility] CHEM LUZAS0809-78-38 01:37:003.9[facility]annCHEM DBSSJ3966-87-48 01:37:0050 [facility]annCHE[facility] NLLSE1435-81-16 01:37:000.9[facility] HermannCHEM PANEL 2016-11-29 01:37:0024[facility] HermannCHEM SOBLM4979-68-26 01:37:003.7[facility]annCHEM XSDBX9060-17-54 01:37:0089[facility]annCHEM OUAOL6346-44-66 01:37:19638Kwjngrvp HermannCHEM IYKLF0753-81-12 01:37:0010[facility]annCHEM VHWWD1445-76-78 01:37:001.28[facility]annCHEM JCYNC7714-02-48 01:37:0030 [facility]annCHEM RYYMI0609-89-51 01:37:55850Tkkbhecw HermannCHEM PANEL 2016-11-29 01:37:009.5[facility] HermannCHEM MUIWX5129-84-43 01:37:009.5[facility] HermannCHEM LZLBW7524-41-54 01:37:008[facility] HermannCHEM PFJPP5205-05-64 01:37:000.7[facility] HermannCHEM EIKTU6856-73-72 01:37:95759Nsusunrq HermannCHEM ABMJC1230-25-94 01:37:003.5[facility] HermannCHEM SRUKC3654-84-73 01:37:007.6 [facility]annCHEM ILLDO8572-24-72 01:37:0014[facility] HermannHEMATOLOGY 2016-11-29 01:10:0033.4[facility] JkzrvysKTOFWOGEFA5571-41-15 01:10:39372Osavxvhn HtqnilnPEAXWCNHTJ6511-28-36 01:10:0014.7[facility] GncniqdGQYSGRCCWD3939-70-50 01:10:008.1[facility] XpqxpixNSWOXYZVNQ8453-18-02 01:10:005.34[facility] EBKHEPIMTP7559-11-87 01:10:0015.5[facility] XddbordIDYGOFHYHS3143-41-95 01:10:00 87.0[facility] WldknncKDYXNDFSEV5435-20-85 01:10:0046.4[facility] HermannHEMATOLOGY 2016-11-29 01:10:00 Test Item Value Reference Range Interpretation Comments MCH (test code = MCH) 29.1 pg 27.0-31.0 [facility] LamogjtMZWVRSXGNR7652-23-03 01:10:008.0[facility]annHEMATOLOGY 2016-11-29 01:10:000.1[facility] MznssrzIKIANXXXWV2024-58-87 01:10:002.0[facility] SkehbpuIBYFZGSWLI7641-05-23 01:10:005.1[facility] SmwapfnJWXFJEKOFH4205-31-79 01:10:000.2[facility] EcrkhwpYKXMNKCGQJ3767-80-59 01:10:000.8[facility] [place] MRGAUZLBQT9716-77-01 01:10:0063.2[facility] PangwtuXZHERMGEZI4917-70-51 01:10:00 24.3[facility] LumvwefOXVVGSSPWB9826-78-15 01:10:002.1[facility]annHEMATOLOGY 2016-11-29 01:10:009.6[facility] QccamlxOXURSSNDHU5112-61-24 01:10:000.8[facility] HermannVIRAL - DDTSJOQO7172-47-03 01:10:00Negative (11/28/16 8:10 PM)[facility] HermannVIRAL - TVUWHLTF6277-52-08 01:10:00Negative (11/28/16 8:10 PM)[facility]annCARDIAC MQUZWAS3894-98-88 01:15:001.3[facility] HermannCARDIAC ENZYMES 2016-11-07 01:15:00<0.02[facility]annCARDIAC NSCIHPR0402-97-89 01:15:001.9 [facility]annCARDIAC RZWLINZ3647-84-76 01:15:65031Vkwqagri HermannCHEM PANEL 2016-11-07 01:15:0077[facility] HermannCHEM RNRQN4680-96-87 01:15:0017[facility] HermannCHEM UEDFE0399-65-80 01:15:006.8[facility] HermannCHEM XNRIS0414-80-51 01:15:008.5[facility] HermannCHEM UTRRH5870-12-25 01:15:000.8[facility] HermannCHEM RSYIO9649-72-33 01:15:09121Uuxzgnyf HermannCHEM ZKCOI4875-41-30 01:15:0031 [facility]annCHE[facility] YEJJF1675-81-95 01:15:003.1[facility] HermannCHEM PANEL 2016-11-07 01:15:000.90[facility] HermannCHEM OCZHL7798-54-68 01:15:75465Zakarfvx HermannCHEM NLFYP9774-04-01 01:15:0012[facility] HermannCHEM ECFOV0110-93-59 01:15:0096[facility] HermannCHEM BFUVX9537-45-22 01:15:003.3[facility] HermannCHEM QTACY4487-10-90 01:15:0076[facility] HermannCHEM NAYIW9551-95-34 01:15:0020 [facility]annCHEM XVTYV5470-59-62 01:15:003.5[facility] HermannCHEM PANEL 2016-11-07 01:15:000.9[facility] HermannCHEM VPCKL3294-66-97 01:15:0010.1[facility] HermannCHEM VMHZS4700-67-41 01:15:0013[facility] TaanjlbEQBFZOFQXF6095-91-01 01:15:002.8[facility] SckodymKCZDATSYPR1362-28-52 01:15:000.2[facility] JLQEFMLYKO9125-23-48 01:15:000.1[facility] DrfdkzvVGAEELZJWP9250-36-13 01:15:000.7 [facility] QipqucdMKXMGPQTKP7245-57-10 01:15:000.8[facility] HermannHEMATOLOGY 2016-11-07 01:15:004.5[facility] KctlgplHIOICCYXDO3123-09-16 01:15:002.2[facility] UmwtqloJNIPRBZSLE8255-93-29 01:15:0058.5[facility] XyzglyuFWKXPQJBSB8280-48-87 01:15:0028.8[facility] WccyryqCWFKIHNKWB3604-80-10 01:15:009.1[facility] [place] UAGPCJPSBD9596-97-35 01:15:32232Kudmvckb IntqvzyQYMPUCVVCI5919-74-29 01:15:00 14.3[facility] TerqmxpYKZQLIMGDH2881-96-05 01:15:008.1[facility] HermannHEMATOLOGY 2016-11-07 01:15:007.7[facility] NgwnvmsYIXTWGYFUS6983-35-54 01:15:0013.1[facility] ZeaakdeLSVCNWPGDJ5935-59-50 01:15:004.48[facility] OlesustEAURQWAEXZ7860-10-73 01:15:00 Test Item Value Reference Range Interpretation Comments MCH (test code = MCH) 29.3 pg 27.0-31.0 [facility] NaweyrxYEUXCBROLV7693-30-83 01:15:0039.1[facility]annHEMATOLOGY 2016-11-07 01:15:0087.3[facility] FbvqapsLEAIUEZJZL2023-63-38 01:15:0033.6[facility]annDR[facility] PYUZLT7283-75-59 11:24:00Negative *NA*(10/11/16 5:24 AM)[facility]annDR[facility] ALZXCB2084-23-26 11:24:00Negative *NA*(10/11/16 5:24 AM)[facility]DR[facility] AQTNWL4746-50-65 11:24:00Negative *NA*(10/11/16 5:24 AM)[facility]annDR[facility] PLNOLR8328-07-63 11:24:00Negative *NA*(10/11/16 5:24 AM)[facility] LCNVHH8006-52-44 11:24:00Positive *ABN*(10/11/16 5:24 AM)[facility] SFTVOB4779-31-44 11:24:00See Note (10/11/16 5:24 AM)[facility] [place] DRUG FAALLY4846-68-95 11:24:00Negative *NA*(10/11/16 5:24 AM)[facility]ann[facility] AASLHM4310-31-71 11:24:00Negative *NA*(10/11/16 5:24 AM)[facility]annC[facility] NBTZZHI4387-46-74 09:58:00<0.02[facility] QbyxyzoJGWPSRNFAS6076-32-98 09:58:00 0.4[facility] VjroknsXYGAODAFPL1818-10-66 09:58:000.1[facility]annHEMATOLOG[facility] 2016-10-11 09:58:006.3[facility] CmoucszPRZHPLIDJA2183-73-65 09:58:001.0[facility] YmtypcaRUXGKPVNVI9578-42-40 09:58:002.7[facility] DednpgpBXYQXWYYUS4114-80-69 09:58:002.1[facility] KiwloyfMRIBEETDSA5749-98-89 09:58:000.6[facility] UZCQZOOWWC3948-18-68 09:58:0036.3[facility] NgcaftpEWMWRTLRJD5924-48-44 09:58:00 46.0[facility] XjbyvccXBMABOYBZR9092-65-04 09:58:0010.4[facility]ann[facility]MAT[facility] 2016-10-11 09:58:008.7[facility] MyqlahpQDLEAFOFVV3716-18-02 09:58:02934[address] FrfmgxmZORGJATUYO1351-64-65 09:58:00 Test Item Value Reference Range Interpretation Comments MCH (test code = MCH) 29.3 pg 27.0-31.0 [facility] OvvsbjfXQWVJWYASU8455-43-56 09:58:0087.2[facility]MATOLOG[facility] 2016-10-11 09:58:0014.4[facility] OoagrkyXOCMDJWNET7680-18-61 09:58:0033.6[facility] DfdaxtwWJWYJXIZEG6982-33-82 09:58:0013.1[facility] PknogzhXKSIMIWTTV9285-04-47 09:58:004.45[facility] KakellgXYCXZVRGEA1550-33-25 09:58:0038.8[facility] VJTILFHATZ0649-67-50 09:58:005.8[facility] DouxamdXPPLJY2013-18-26 09:58:002.84 [facility] AdyirkgGFCCBE3169-62-20 09:58:0014[facility] MfijfwmOSLFZA4445-35-80 09:58:0087[facility] ZgnmdmcRRKJZY4836-17-15 09:58:0071[facility]annLIPIDS 2016-10-11 09:58:03999Cvedhxfm EsmehmeIOKJNR3301-65-73 09:58:0055[facility] ZJRFMRT5769-05-25 00:00:00<0.02[facility] ENZYMES 2016-10-10 19:10:33<0.02[facility]annCHEM DLUSA7868-57-21 19:10:3392 [facility]annCHE[facility] KKVZH1913-82-02 19:10:338[facility]annCHE[facility] PANEL 2016-10-10 19:10:330.78[facility]annCHE[facility] JRJMA4360-52-15 19:10:91966Kiojqzbm HermannCHEM HUGWM2441-84-15 19:10:333.2[facility]annCHE[facility] JRRSA3877-41-20 19:10:339.3[facility]annCHEM ARICY0803-96-53 19:10:3331[facility]annCHE[facility] JUZOT9089-40-39 19:10:04968Qhljhpsy HermannCHEM CHYFM2680-67-94 19:10:47219 [facility]annCHE[facility] NDVPY2578-00-75 19:10:337.2[facility]annHEMATOLOGY 2016-10-10 19:10:3333.8[facility] IltdcmdOSBDBWNBZF7189-04-82 19:10:3314.2[facility] VcektvrYECCMDZBCB5585-14-34 19:10:33 Test Item Value Reference Range Interpretation Comments MCH (test code = MCH) 29.4 pg 27.0-31.0 [facility] IqnnadvMRHYGNWSWJ2307-15-55 19:10:3387.0[facility]annHEMATOLOGY 2016-10-10 19:10:3313.5[facility] XemhqdtZGYICUIHHZ5736-47-39 19:10:3339.8[facility] DvukhrlIALYZQQRJS4014-99-09 19:10:35028Hdnvidwn CmtopglUCXRMNZPUE4141-29-64 19:10:338.7[facility] OagbcuoLJXGVFCKQN0253-54-23 19:10:336.6[facility] FSENDMBAAW6733-79-82 19:10:334.58[facility] XmbocupMSYVKOHPIF1669-38-03 19:10:33 1.8[facility] EsbcnkzFSUJHYRGXX0371-24-27 19:10:330.6[facility]annHEMATOLOGY 2016-10-10 19:10:330.3[facility] UamozlxHLEWSFLYNJ1420-71-68 19:10:330.6[facility] KixycccTYQQHCMBIU7930-54-19 19:10:333.9[facility] HhnyjueFGBZAFLTIV4707-28-51 19:10:339.0[facility] RfskgswBUSFIJNENT8694-12-39 19:10:334.1[facility] VWURQENICS6202-21-59 19:10:3359.5[facility] QdtqalzGNFKRUJZOC5377-30-15 19:10:33 26.8[facility]annCARDIAC BMWJETV9295-34-74 04:07:00<0.02[facility] BTZRIDZRCMYF4264-73-47 04:07:0013.5[facility] PecffztAFUBKJLWTEAC5784-87-39 04:07:0079[facility] NbmdvouBSNRYYYHAHIE7363-52-87 04:07:000.89[facility] RBQXSGCMSEOP9966-31-70 04:07:009[facility] IenjsoyPWYRFQYCCPVE5144-54-74 04:07:00 72[facility] QliysjmVAECWQHKMQQL2934-94-33 04:07:04719Lqodcwyx HermannELECTROLYTES 2016-04-14 04:07:0025[facility] DsbvpsiGRKBDMHTEBFL0332-34-57 04:07:008.9[facility] AkrcdiqXIJNFNTCESWR9346-60-64 04:07:20956Qnzjrvxl EwczozaYHPNEVKTOECS9386-05-61 04:07:003.5[facility] OvmgisiCOXBMKQMSL7720-99-97 04:07:75705Viutqtat [place] MITWTERLYW9196-36-64 04:07:008.5[facility] WbusoydNMAYXGWQFE8040-36-50 04:07:00 33.5[facility] LpottzmZZIWICCJXF6728-60-22 04:07:00 Test Item Value Reference Range Interpretation Comments MCH (test code = MCH) 28.7 pg 27.0-31.0 [facility] JfudmeaLSERHJEIFU5401-09-30 04:07:0015.0[facility]annHEMATOLOGY 2016-04-14 04:07:0038.3[facility] ZqaiecoXSYMLCUPLS4207-68-79 04:07:0085.6[facility] GlwifrrDJIPYGOFXQ5317-49-39 04:07:0012.9[facility] WrlvtsfDALORVHZOQ0171-37-85 04:07:004.48[facility] GgpdixzUNPAPTUDEU9731-70-69 04:07:005.6[facility] JBSXGBWOAK1211-94-06 04:07:000.1[facility] UraepjoWQHVOZJGZI1739-53-80 04:07:002.2 [facility] EzeibfrMCQXXPFQQS0468-98-73 04:07:000.3[facility]annHEMATOLOGY 2016-04-14 04:07:000.5[facility] NfepcbfETIDXHKOEJ9425-18-09 04:07:006.1[facility] BruvjfzWWKDLNCMPI2672-47-66 04:07:001.1[facility] ZckduzzMIBIMCSIFW0292-25-66 04:07:002.5[facility] CiwvfpvFTIZHEZXDU3294-44-27 04:07:0038.8[facility] KDJHQNBKDB2402-59-96 04:07:009.2[facility] VjvgamkIDITHTCQMS0906-51-88 04:07:00 44.8[facility] ChuzqajDOIAHMTVDQ2896-88-09 04:07:008[facility]annTOXICOLOGY 2016-04-14 04:07:000.008[facility]annCARDIAC TFXLFJX1909-66-09 11:47:00 <0.02[facility] MlvcjcnLJUVAP3787-31-11 11:47:003.39[facility] HermannLIPIDS 2016-03-12 11:47:0018[facility] QpwbqhmXSVATY2985-04-85 11:47:0073[facility] YEUOQF0429-16-06 11:47:0090[facility] XkfjatqWMCNQG0565-51-99 11:47:55250Vegwnguj YdqwmmcLRTOCA5487-48-98 11:47:0038[facility]annSPECIAL NDVYWCOEJ4280-89-45 11:47:005.9[facility]annCARDIAC CQCSNPS6908-32-57 02:33:0081[facility] CARDIAC KKZRFSJ8102-90-79 02:33:000.02[facility]annCARDIAC FHHUWFW4831-44-32 02:33:001.6[facility]annCARDIAC JRIWDBA5815-08-62 02:33:001.3[facility] INLKQMSCVW1485-21-72 21:03:00 Test Item Value Reference Range Interpretation Comments PROTIME (test code = PROTIME) 14.0 s 12.0-14.7 [facility] WxehzmeTTHASAZFBU7802-89-30 21:03:001.05[facility] HermannHEMATOLOGY 2016-03-11 21:03:00 Test Item Value Reference Range Interpretation Comments aPTT (test code = aPTT) 38.7 s 22.9-35.8 [facility] ArpdesbBHAGTDTNTU2751-58-71 21:03:000.49[facility] HermannCARDIAC ENZYMES 2016-03-11 20:14:001.6[facility]annCARDIAC AVUXEZK6548-81-81 20:14:001.3 [facility]AC GSBBMZE3956-19-06 20:14:00<0.02[facility] CARDIAC NLKJUUN3747-86-72 20:14:0083[facility]annCARDIAC OUUDMPK6233-20-93 20:14:0050[facility] HermannCHEM COVYV5661-07-41 20:14:89045Gqgclmhk HermannCHEM OWKER0900-21-93 20:14:55506Rpwwctos HermannCHEM RULFY6452-91-04 20:14:002.8 [facility]annCHEM HRYNL5238-62-15 20:14:001.2[facility] HermannCHEM PANEL 2016-03-11 20:14:0015[facility]annCHEM HDBCE0545-98-69 20:14:0010.4[facility]annCHEM PAHPP1485-30-43 20:14:0014[facility]annCHEM IVVEH2094-29-06 20:14:006.1[facility]annCHEM XLOQV6448-47-86 20:14:000.5[facility]annCHEM NRPUV1257-62-38 20:14:007.7[facility]annCHEM CDKUF3362-03-81 20:14:0026 [facility]annCHEM MBIMZ1083-40-70 20:14:39070Jxfiudnu HermannCHEM PANEL 2016-03-11 20:14:003.4[facility]annCHEM CSPGA3387-96-81 20:14:60980Qewfhxep HermannCHEM JCWSW6151-77-14 20:14:000.61[facility]annCHEM GIHUR0483-32-71 20:14:009[facility]annCHEM KNFOL5957-33-11 20:14:0076[facility]annCHEM IEQET5910-76-09 20:14:0088[facility]annCHEM MLEPI2825-27-23 20:14:003.3 [facility]annCHEM BKWRW2400-10-24 20:14:0015[facility]annHEMATOLOGY 2016-03-11 20:14:001.8[facility] OyvhjmdNNMVDJNFTQ5424-24-15 20:14:000.5[facility] ImmyvslGKWTFYCIPL5374-98-14 20:14:001.0[facility] YxutkgnEUEXKVDMIV7381-66-52 20:14:004.1[facility] XihhpqzJXGSWNGOXJ3593-47-87 20:14:000.2[facility] NZPMFZOXQT9775-95-16 20:14:000.1[facility] IbtpnnmUYPUAUUWGS9883-67-21 20:14:00 61.4[facility] FexeqhjDOYXFDOJHG1630-25-02 20:14:003.5[facility] HermannHEMATOLOGY 2016-03-11 20:14:0026.6[facility] NyavzgjMWSNNDFJAN9970-13-04 20:14:007.5[facility] HdmgtgcOJPQSGFGPF2803-53-43 20:14:006.7[facility] LyqxxduMPVGNNZEPH2823-97-00 20:14:0012.2[facility] YctwgewRUTNDMQMOX9603-80-50 20:14:004.26[facility] ZXBBEMJUFR5083-28-44 20:14:00 Test Item Value Reference Range Interpretation Comments MCH (test code = MCH) 28.7 pg 27.0-31.0 [facility] FieipteXFZNQCHULV8062-77-46 20:14:0086.0[facility] HermannHEMATOLOGY 2016-03-11 20:14:0014.9[facility] EofsbslWYXDJXQDKR0016-83-85 20:14:0033.3[facility] VwbqhhxWLDAOOGRIQ9494-84-45 20:14:0036.6[facility] GttlnicCUXWMBJQME8219-59-90 20:14:008.7[facility] JqnilepUYXVCJEPNP9786-83-60 20:14:53950Gcgdrdeo HermannURINE AND XJNBF4471-17-68 20:14:00Negative (03/11/16 3:14 PM)[facility] HIHCF3373-70-31 20:14:00Negative (03/11/16 3:14 PM)[facility] UNNBP1090-21-37 20:14:00Negative (03/11/16 3:14 PM)[facility] EZNIP7281-47-65 20:14:000.2[facility]UR[facility] AND SHXNS1458-49-85 20:14:00 Clear (03/11/16 3:14 PM)[facility] RXYOM5358-55-03 20:14:00 Negative (03/11/16 3:14 PM)[facility] HYBLY3640-70-05 20:14:00 <=1.005 *NA*(03/11/16 3:14 PM)[facility] VDCVZ3666-08-27 20:14:00 Test Item Value Reference Range Interpretation Comments UA pH (test code = UA pH) 6.5 1 5.0-8.0 [facility] UVNYQ1269-78-83 20:14:00Negative *NA*(03/11/16 3:14 PM) [facility] ASWDR6858-46-54 20:14:00Negative *NA*(03/11/16 3:14 PM) [facility] SGRGJ8376-21-16 20:14:00Negative (03/11/16 3:14 PM) [facility] URVMW8824-15-96 20:14:00Yellow *NA*(03/11/16 3:14 PM) [facility] MVRVZ2717-54-59 00:22:00Yellow *NA*(02/29/16 7:22 PM) [facility] YSQZU6065-17-20 00:22:00 Test Item Value Reference Range Interpretation Comments UA pH (test code = UA pH) 6.0 1 5.0-8.0 [facility] CCKOD9910-44-42 00:22:00Clear (02/29/16 7:22 PM)[facility] ASVPW4337-82-49 00:22:00 Test Item Value Reference Range Interpretation Comments UA Spec Grav (test code = UA Spec 1.015 1 Grav) [facility] ULPOK6975-14-21 00:22:00Trace *ABN*(02/29/16 7:22 PM) [facility] FRCLG0047-55-36 00:22:00None Seen (02/29/16 7:22 PM) [facility] JWYYF5149-50-90 00:22:00Negative (02/29/16 7:22 PM) [facility] YBGOP3100-49-34 00:22:001.0[facility] HCPPA2301-92-26 00:22:00Negative (02/29/16 7:22 PM)[facility] STOOL 2016-03-01 00:22:00Negative (02/29/16 7:22 PM)[facility] STOOL 2016-03-01 00:22:00Negative *NA*(02/29/16 7:22 PM)[facility] STOOL 2016-03-01 00:22:00Negative *NA*(02/29/16 7:22 PM)[facility] STOOL 2016-03-01 00:22:00Negative (02/29/16 7:22 PM)[facility]annCARDIAC ENZYMES 2016-02-29 23:14:00<0.02[facility]annCARDIAC YLCLQSK5436-34-66 23:14:001.1 [facility]annCARDIAC JOMESMM0900-23-83 23:14:22057Pwjhcrzq HermannCARDIAC CTRXYJW4932-53-34 23:14:007[facility]annCARDIAC VGUISAC8999-48-00 23:14:000.8 [facility]annCHEM VZXWY0226-00-16 23:14:0080[facility] HermannCHEM PANEL 2016-02-29 23:14:0013[facility] HermannCHEM QSRAR2008-19-29 23:14:001.0[facility]annCHEM GLZCL9620-84-09 23:14:003.6[facility]annCHEM UMOVY8799-43-48 23:14:009[facility]annCHEM HCNYA2089-61-52 23:14:007.1[facility]annCHEM OJCFF7783-38-09 23:14:0010.0[facility] HermannCHEM ONRUD3771-20-43 23:14:38916 [facility]annCHEM VVAQL3251-55-38 23:14:003.0[facility] HermannCHEM PANEL 2016-02-29 23:14:000.88[facility] HermannCHEM TFCXG0029-33-82 23:14:0030[facility]annCHEM VNBPB9373-76-63 23:14:000.6[facility]annCHEM NFEGX0805-42-63 23:14:008.7[facility] HermannCHEM XQJKJ0884-55-94 23:14:41295Nlzcemrn HermannCHEM RDSNK7744-72-94 23:14:0015[facility]annCHEM CDPQK1280-25-37 23:14:0088 [facility]annCHEM ZYBIM2916-76-12 23:14:003.5[facility] HermannCHEM PANEL 2016-02-29 23:14:008[facility] HermannCHEM QRSQZ9914-41-64 23:14:0089[facility] HieaxcsLLODYRJIJZ0085-59-21 23:14:00 Test Item Value Reference Range Interpretation Comments PROTIME (test code = PROTIME) 13.2 s 12.0-14.7 [facility] SozibvfMMFRNRCZAV0222-35-10 23:14:000.97[facility] HermannHEMATOLOGY 2016-02-29 23:14:0015.3[facility] IfsipanWTWUMZWOQC1243-40-71 23:14:0032.9[facility] DtotivfYEXGDMZUJS6596-12-43 23:14:0043.8[facility] DhcyuewKNMZEDSQGI4017-72-69 23:14:00 Test Item Value Reference Range Interpretation Comments MCH (test code = MCH) 28.1 pg 27.0-31.0 [facility] UqoplnzKYFXOGPKLX9625-70-55 23:14:0085.5[facility] HermannHEMATOLOGY 2016-02-29 23:14:005.3[facility] TwshjfhEBOIZBBAZS1311-51-64 23:14:0014.4[facility] HhpjrsxSVKAHNWIHM7586-66-14 23:14:005.12[facility] PjnbdpvQUPWASZYBE3760-91-56 23:14:85761Iytwgxkn AkbgtdkPHDGNCQWIV8524-75-31 23:14:008.1[facility] ULKXUKJHWQ5340-37-91 23:14:0057.2[facility] UjmmomsYPUPMQOTIG3524-13-50 23:14:00 11.7[facility] UlveycqHXLMITJKAP9285-88-93 23:14:0024.1[facility] HermannHEMATOLOGY 2016-02-29 23:14:000.1[facility] VbpdajgHMDYWWXJKR5146-66-51 23:14:000.6[facility] NdfploeBGGFBTNDYE0945-46-48 23:14:001.3[facility] UyqaonzLKKNVTSNFB4993-14-13 23:14:000.3[facility] GbgliwpEBSJVGHFKJ5301-43-74 23:14:003.0[facility] DLBRZBWXZM7493-19-42 23:14:005.9[facility] RcvjvrfWPSMENPZBI2878-86-83 23:14:001.1 [facility]annCARDIAC ZTXIRVZ9591-67-19 17:04:000.7[facility]annCARDIAC HDNSBDG2269-30-73 17:04:000.7[facility]annCARDIAC ORQQHPW7376-76-47 17:04:00 <0.02[facility]annCARDIAC INGNINK1460-61-30 17:04:0097[facility] LTOJDFFRQGIV7257-44-82 17:04:0018.3[facility] GzfjmelZIVHNRPEIFIY0733-55-73 17:04:0078[facility] VrgcdqbWKXDCUYFLXQP9339-71-41 17:04:76255Ucpurhjf [place] SGRARXYCFGGY0766-97-75 17:04:0010[facility] RsalifdBRLWYBCJOHJI4554-23-51 17:04:00 0.90[facility] IfncuyqHVFOXBTEUQKL0461-68-05 17:04:0020[facility] ITTPSIHPQXGT1097-71-98 17:04:009.4[facility] CojhxleSSXMVYMKSNLL8979-47-23 17:04:004.3[facility] KolzwjiXOYGUSMWMKIA4495-11-46 17:04:65070Uylisuua [place] JKRXXOIOXFRF3296-80-49 17:04:12243Ohevbfou AfchrhlOTPHAIGFFS5021-41-03 17:04:00 9.6[facility] MiwfxmjWLRPOUTSSQ9164-62-80 17:04:0041.4[facility] HermannHEMATOLOGY 2015-09-04 17:04:0013.1[facility] GhqcjsqZYCKYOCZFD8618-43-24 17:04:004.74[facility] QjiwevnMRCAXJZYYZ4628-33-04 17:04:0087.3[facility] EugzvzjGDNCVFIPWV7093-65-23 17:04:0031.5[facility] DfucvtgIKYOATBCFD3353-64-02 17:04:00 Test Item Value Reference Range Interpretation Comments MCH (test code = MCH) 27.5 pg 27.0-31.0 [facility] ReurnzbIUBNSVHRQP4297-26-81 17:04:008.7[facility] HermannHEMATOLOGY 2015-09-04 17:04:15730Betxftok LfprrwqIDQGIMOYTB5074-66-13 17:04:0014.4[facility] ZcvswclCVQQPNJPZQ5628-00-18 17:04:000.1[facility] GhnywkeCMCPTYYHML5802-87-45 17:04:000.5[facility] NlnvklkOYEWTFUVAT0119-35-03 17:04:00Normal (09/04/15 11:04 AM) [facility] QqupcniIVRTGILPNW4466-76-77 17:04:00Normal (09/04/15 11:04 AM)[facility] KqwdiuoMZSAGPBOYA8302-12-49 17:04:0093.3[facility] TnyhvgeLLATFRAGJF5433-42-15 17:04:000.2[facility] HebsubvIJWNFHIXDJ4497-07-11 17:04:005.4[facility] HPVGUAZJQZ2873-90-19 17:04:001.1[facility] IlyoiujEISBLKFISH0084-78-25 17:04:009.0 [facility] JnhiwcnRSDTCF1350-43-22 17:04:0014[facility] SesatwkEWEMXE5358-37-16 17:04:79276Hwibynyo UtgmpcyAJOYKS0189-10-44 17:04:0054[facility] HermannLIPIDS 2015-09-04 17:04:0071[facility] CstucmsELWPBN3855-46-35 17:04:92017Jcwtdayx OdryztuAOELUK7639-31-01 17:04:003.67[facility]annCARDIAC AMMTRKU1360-60-82 10:50:000.6[facility]annCARDIAC ITCTTXM6710-17-16 10:50:000.6[facility] CARDIAC TSAIXIP5989-30-23 10:50:00<0.02[facility]annCARDIAC ENZYMES 2015-09-04 10:50:76641Tqnpircq HermannCARDIAC AGRKCFC7357-69-97 04:33:70659 [facility]annCARDIAC QEZYYWR0323-59-36 04:33:00<0.02[facility] CARDIAC TACAVRR3455-64-46 04:33:000.8[facility]annCARDIAC MQQEOAE9871-62-64 04:33:000.7[facility] HermannCHEM JATWJ7843-05-57 04:33:0087[facility] HermannCHEM ABCRZ7468-52-76 04:33:008[facility] HermannCHEM GDTIR1689-57-74 04:33:000.82 [facility]annCHEM DEPJR1686-61-33 04:33:06222Cskkocen HermannCHEM PANEL 2015-09-04 04:33:54896Svjvmezu HermannCHEM NWWFL9162-92-83 04:33:003.9[facility] HermannCHEM ZAGHD1816-81-90 04:33:26266Oiqpeiwj HermannCHEM SYYAD7760-98-79 04:33:0013.9[facility] HermannCHEM HEIKY5998-52-68 04:33:009.2[facility] HermannCHEM HFUEE1968-15-99 04:33:0025[facility] NgaatfpNVFFVYSOLV0511-58-33 04:33:007.4 [facility] HsvgauyLCFDVBLPWC4031-25-86 04:33:0012.4[facility] HermannHEMATOLOGY 2015-09-04 04:33:004.57[facility] SohvgblTXHAZJOVSK2610-93-48 04:33:0039.4[facility] OlxktgrRKCEPNVNMS9532-12-24 04:33:0086.1[facility] OrckuyvWMUXJXCEET8157-76-16 04:33:0014.7[facility] ShugjxtBXTJJTEDGK7419-09-24 04:33:0031.6[facility] FIQOZLNBCD1356-21-48 04:33:00 Test Item Value Reference Range Interpretation Comments MCH (test code = MCH) 27.2 pg 27.0-31.0 [facility] ChuzyytKDWILZJMDE9659-88-68 04:33:008.3[facility] HermannHEMATOLOGY 2015-09-04 04:33:91720Bremwcws ZnilpnkAQGSWBVIBP5298-87-64 04:33:005.5[facility] JsrklgbIEJRGKJQRR7179-50-73 04:33:006.5[facility] MutzxizAABYUUUGZW3168-54-70 04:33:0031.7[facility] YydarkrJXBEKNGJLU3668-42-52 04:33:0055.0[facility] TLISJFELEI9162-05-27 04:33:000.5[facility] QkvxarwCJIQHPPPMK1562-24-64 04:33:002.3 [facility] BcrzjvnHJOOKLDNGY3848-12-77 04:33:004.0[facility]annHEMATOLOGY 2015-09-04 04:33:001.3[facility] FbidyuzDEUYDKIRIN6873-49-31 04:33:000.1[facility] KwypujhUTYSHBDAIM6331-54-57 04:33:000.4[facility]annCARDIAC HITJKET7107-76-23 10:25:00<0.02[facility]annCARDIAC UIPQCSQ4802-05-61 10:25:0075[facility]annCARDIAC HEMHZUL5745-92-17 10:25:000.9[facility]annCARDIAC ENZYMES 2015-07-16 10:25:001.2[facility] HermannCHEM ZSLNR5579-55-86 10:25:17967Ytcsltlx HermannCHEM CRVIA7308-18-59 10:25:000.6[facility] HermannCHEM YJTER5469-74-34 10:25:003.1[facility]annCHEM PCZTV8745-53-61 10:25:009.0[facility]annCHEM KUYDI3690-78-69 10:25:006.3[facility] HermannCHEM ZXAXE6733-34-89 10:25:0014 [facility]annCHEM BXVLO6223-21-41 10:25:0089[facility] HermannCHEM PANEL 2015-07-16 10:25:0019[facility] HermannCHEM ZRSDJ8003-37-98 10:25:0025[facility]annCHEM FCYNM8268-10-78 10:25:004.2[facility]annCHEM TZJCA6371-77-48 10:25:91386Gjphpwdi HermannCHEM CPBXU3093-58-53 10:25:0014[facility]annCHEM SPZXQ4149-39-72 10:25:000.70[facility]annCHEM BJSQH5230-46-60 10:25:00285 [facility]annCHEM BHGCJ3959-39-89 10:25:0078[facility]annCHEM PANEL 2015-07-16 10:25:0020[facility]annCHEM KMQZK8565-23-89 10:25:0010.2[facility]annCHEM ISTNR2406-75-02 10:25:001.0[facility]annCHEM RECUC5375-63-53 10:25:003.2[facility] NpmxsnbXIKQCBLWCD6771-86-15 10:25:008.6[facility] SOREJLCGKY3812-47-43 10:25:52723Efkpsxmt PwdhkgyBMCTTCGCRE8325-62-15 10:25:00 14.3[facility] AiegeobYRAQOTRJDA0421-67-46 10:25:004.53[facility]annHEMATOLOGY 2015-07-16 10:25:005.5[facility] BibbadkWJYRIFWCAF1594-92-80 10:25:00 Test Item Value Reference Range Interpretation Comments MCH (test code = MCH) 27.9 pg 27.0-31.0 [facility] FujoiljLIXUVPLJFA1823-68-84 10:25:0031.5[facility] HermannHEMATOLOGY 2015-07-16 10:25:0088.6[facility] VylapptEQFQXOFJDS0121-12-39 10:25:0040.2[facility] OktyysmPUBZPHNGEK0170-36-48 10:25:0012.6[facility] AzbpzpfILLDMTTVQD2095-09-77 10:25:000.2[facility] ZoeeeyxZRTOQHKSBN7694-94-05 10:25:002.0[facility] UWFLQEUVUA0362-95-88 10:25:000.9[facility] BsccvifWWSTBXSDKJ4438-29-95 10:25:000.6 [facility] EcateqdXLUTGFFJRZ0164-72-19 10:25:002.6[facility]annHEMATOLOGY 2015-07-16 10:25:0011.0[facility] NunpdgyKHHBWWPZAR7447-92-19 10:25:004.0[facility] VwvtmbbFQCETLEAQB7166-20-02 10:25:0036.1[facility] YkwxkcfSBVUSFHJLP0631-62-33 10:25:0048.0[facility] CgqfmhiRFFAVDMACZ6522-04-78 10:25:000.1[facility] CARDIAC FSJUDFF6965-42-96 04:22:00<0.02[facility]annCARDIAC ENZYMES 2015-07-16 04:22:0088[facility]annCARDIAC DOJMTZJ7586-88-32 04:22:001.1 [facility]annCARDIAC QUUWMGM0213-19-37 04:22:001.0[facility]annCARDIAC FLDBVOX7158-84-91 21:33:00<0.02[facility]annCARDIAC COOJEHJ1942-19-20 21:33:001.2[facility]annCARDIAC FIULAGG5767-37-84 21:33:65007Cxiuqelj [place] CARDIAC FAVSMBE1420-69-94 21:33:001.2[facility] HermannCHEM FVSRV4213-01-88 21:33:0090[facility] HermannCHEM BMFRR1758-46-80 21:33:0091[facility] HermannCHEM SSNNG2996-15-01 21:33:0019[facility] HermannCHEM DEUHK4780-47-61 21:33:0017 [facility]annCHEM AEPPE7213-23-59 21:33:0012[facility] HermannCHEM PANEL 2015-07-15 21:33:000.8[facility] HermannCHEM RGWDY4536-82-40 21:33:0011.1[facility] HermannCHEM OATIS1078-50-67 21:33:003.5[facility] HermannCHEM HSKSM1555-95-62 21:33:0027[facility] HermannCHEM THYTA2758-26-97 21:33:006.8[facility] HermannCHEM ELPZW0515-91-87 21:33:008.7[facility] HermannCHEM DXVFP9242-06-08 21:33:003.3 [facility]annCHEM ARPSQ4150-11-29 21:33:001.1[facility] HermannCHEM PANEL 2015-07-15 21:33:000.80[facility] HermannCHEM PYSVQ2875-38-99 21:33:81635Crxrmxzl HermannCHEM TPEDV3412-15-87 21:33:47068Fhcawbpq HermannCHEM GORTT6123-00-40 21:33:004.1[facility] HermannCHEM XCKYI5607-21-12 21:33:0010[facility] HermannCHEM ZNUTS8202-72-87 21:33:0072[facility] JqoygefBIHRZBQJXY1325-55-69 21:33:003.3 [facility] BkyrzpbSZOLDSWKUG4908-13-16 21:33:000.2[facility] HermannHEMATOLOGY 2015-07-15 21:33:000.6[facility] FeszdjwXKNRITISRG6769-05-52 21:33:002.3[facility] JdcjcccBGBEYNTBRL3704-48-98 21:33:0051.8[facility] VebryjaTNYPSRZOXZ1982-16-20 21:33:000.6[facility] BhccoevRBNWGBIVGY0317-84-20 21:33:003.1[facility] WQPAVKUYAE5134-31-29 21:33:009.4[facility] DtqlvgqBNQAMRFQMP0218-37-12 21:33:00 35.1[facility] PirfidbRIYFVHORBU9257-01-50 21:33:000.0[facility] HermannHEMATOLOGY 2015-07-15 21:33:009.1[facility] TwkadnoQQNUTVCASF6357-21-55 21:33:0087.6[facility] MocmuccLFFJJCITPS0163-60-25 21:33:0012.9[facility] CcsnbamKVMIVCTAOP7655-87-98 21:33:0039.8[facility] ExbfezuCRBPKHKGOI5201-80-26 21:33:0032.3[facility] IEJBMRFENY0850-88-06 21:33:0014.8[facility] IrdkmqiEXBPUKJDQN3924-33-69 21:33:00 Test Item Value Reference Range Interpretation Comments MCH (test code = MCH) 28.3 pg 27.0-31.0 [facility] VvbbuqxHPXJPPGUNP4312-54-16 21:33:86931Eovuvqqg HermannHEMATOLOGY 2015-07-15 21:33:004.54[facility] OdogzjzRZDKITTDTL3071-36-76 21:33:006.4[facility] IyfdpmpZLQWRAWFHK8709-45-05 19:18:00Negative (05/18/15 2:18 PM)[facility] CARDIAC TFCYVAD1659-88-98 18:26:00<0.02[facility] HermannCHEM XQLHF3355-61-43 18:26:000.1[facility] HermannCHEM SKBDN6698-73-44 18:26:003.9[facility] HermannCHEM GJEVT7583-08-84 18:26:97815Fdobgqza HermannCHEM IANRY9698-59-92 18:26:000.5 [facility]annCHEM AQAKZ7131-87-52 18:26:0022[facility] HermannCHEM PANEL 2015-05-18 18:26:0018[facility] HermannCHEM VZRKQ6742-36-77 18:26:007.9[facility] HermannCHEM TNFIQ4241-09-35 18:26:004.0[facility] HermannCHEM KMUYJ4714-75-12 18:26:000.4[facility] HermannCHEM UBMKQ6056-22-89 18:26:001.0[facility] HermannCHEM WIIZD3203-02-64 18:26:86171Tbtxivjj HermannCHEM WEXDL2352-65-00 18:26:0078 [facility] HermannCHEM WEKAL2949-42-60 18:26:00571Xspkvlwb HermannCHEM PANEL 2015-05-18 18:26:003.9[facility] HermannCHEM WDLOU4573-06-51 18:26:000.9[facility] HermannCHEM UCXUW9684-91-69 18:26:0087[facility] HermannCHEM WWDWN6400-90-00 18:26:007[facility] HermannCHEM GOTNW4284-00-63 18:26:39212Cymndzre HermannCHEM RIDPB0959-20-58 18:26:0028[facility]annCHE[facility] HPWZK2582-25-41 18:26:0010.2 [facility] XBTSL7518-39-71 18:26:0010.9[facility]annHEMATOLOGY 2015-05-18 18:26:0014.2[facility] BcslmaiNCQTHSMWZX0940-61-44 18:26:004.96[facility] OdnzdvuZHMYHJUBLV4716-74-67 18:26:00 Test Item Value Reference Range Interpretation Comments MCH (test code = MCH) 28.7 pg 27.0-31.0 [facility] GglyzakAJVJSVFVBK2611-90-49 18:26:0032.9[facility] HermannHEMATOLOGY 2015-05-18 18:26:0043.3[facility] FexlfmdKQZHMFVHBK2381-95-41 18:26:0087.2[facility] YfwdchlXOJWYNQEUF5715-53-82 18:26:006.8[facility] JkwyynmVAXTEDEUTT7719-27-57 18:26:18074Zfnnauxd OaqcusaDMKGSRPJEW6824-24-34 18:26:008.2[facility] QCGYFSSZHI3757-12-17 18:26:0014.5[facility] IyrlxcbFXYZKRKZZU2467-95-83 18:26:00 55.6[facility] HbbmcnyCLZBCSBZHW0720-63-53 18:26:0032.7[facility]annHEMATOLOGY 2015-05-18 18:26:008.5[facility] NnkrbuxSIDPCMTSSM4235-01-01 18:26:003.8[facility] NpfkosnWOVWIZIPOC6985-03-30 18:26:000.6[facility] RtkujfuROLFWKDJFI8979-47-53 18:26:002.2[facility] SlsyuwzWDJXLJUHTR5327-91-60 18:26:002.6[facility] WGKOIBJNNR7758-60-42 18:26:000.2[facility] YetqrtqCCZXDOTACL9547-00-99 18:26:000.6 [facility] OefiemePIBQUOYZUM7311-56-65 18:26:00Positive *NA*(05/18/15 1:26 PM) [facility] MngsamqIYHPTBWCIJ6834-67-09 18:26:00433435Wvezarws HermannIMMUNOLOGY 2015-05-18 18:26:005.5[facility] HermannCARDIAC IQODWHQ9318-67-42 18:51:00<0.02 [facility]annCHEM DXIOA0351-14-47 18:51:0090[facility]annCHEM PANEL 2015-05-09 18:51:0028[facility]annCHEM RKSXI7596-73-68 18:51:009.6[facility]annCHEM VWLKP2328-22-81 18:51:58342Vymhllmq HermannCHEM TWSPV2777-08-01 18:51:000.8[facility]annCHEM XBMME5571-42-32 18:51:22893Vewncsui HermannCHEM USTKY5510-12-25 18:51:003.7[facility]annCHEM IXFBZ4039-06-23 18:51:22407 [facility]CHE[facility] RVWWC5791-46-61 18:51:007[facility]annCHEM PANEL 2015-05-09 18:51:009.7[facility] YydczrzBSHXLDSMJL4007-59-06 18:51:0014.4[facility] HtfjatnTGVQVKVUBW9108-38-54 18:51:0032.5[facility] VdjzdkkZAWCVCCJTI5598-96-03 18:51:00 Test Item Value Reference Range Interpretation Comments MCH (test code = MCH) 28.7 pg 27.0-31.0 [facility] GmzatebKVSPVVVMDT0196-07-38 18:51:88614Zbtscyqf HermannHEMATOLOGY 2015-05-09 18:51:007.6[facility] TawdeejWABNLREPGQ7868-30-45 18:51:0088.2[facility] SwfdwqnSAPETUTSBQ2210-49-91 18:51:0041.9[facility] UyavlylOHOCMEDDFP8561-30-04 18:51:004.75[facility] TkkkxisREAKMJCVUX9753-60-53 18:51:0013.6[facility] TGABVCKUXV0992-91-56 18:51:005.6[facility] TqyzayiDCSRVYKTEU2646-47-10 18:51:002.1 [facility] WsbuskdJIKLMKFNRY8296-20-30 18:51:000.1[facility]annHEMATOLOGY 2015-05-09 18:51:000.2[facility] KjempqsKHCLNVJRPO8036-77-57 18:51:000.4[facility] BkgzzczUXYQKZVURN3064-56-09 18:51:0050.8[facility] SkjfscfKSXXFRYUIF6193-04-93 18:51:002.8[facility] BybhlslTBGLOZSKAZ4715-20-69 18:51:002.9[facility] Maciej UCVPYEJYWD6915-60-54 18:51:001.1[facility] XoqyyyxSIEZVTZBPO0692-56-65 18:51:007.7 [facility] ArmxbqyAQDLJULNWB8355-63-92 18:51:0037.6[facility] HermannCARDIAC ENZYMES 2015-05-02 22:03:00<0.02[facility]annCHEM GKZVW7009-29-04 22:03:003.2 [facility]annCHEM EIOBH3298-36-85 22:03:002.1[facility] HermannELECTROLYTES 2015-05-02 22:03:0012.4[facility] SwmvtaaVEVUOVLXUNER9414-95-90 22:03:0068[facility] SnwkptzKVCRTCTZHWJQ9164-86-93 22:03:56049Zetuzujz ZmnkgmyWDXOKHJGCNPG6405-10-19 22:03:70592Qszakahy WfsvalzSPRBYVQDDEOC4033-70-64 22:03:0028[facility] OPFBBHEGIMXW4207-57-59 22:03:008.8[facility] KrnthljLMEHNXXCMRBC1260-61-45 22:03:003.4[facility] AeaqpdhYVEDDEOQIHAL3699-25-03 22:03:000.9[facility] HWPWLAUZABEO1680-63-85 22:03:0092[facility] ZlfckgvDKZDLOKEZWIH7746-33-36 22:03:00 6[facility] TmyildwVGEPUSGGOT4860-73-47 22:03:008.0[facility]annHEMATOLOGY 2015-05-02 22:03:0014.1[facility] NjxivadPTPCYYZGFS4809-70-75 22:03:18284Kuqfxfcp TwawkblOYZNIZBNAA0448-63-96 22:03:0032.6[facility] EvoflfpVJDORCHYMC1185-30-53 22:03:008.0[facility] XhsijxaYJRFVZSKYG7732-69-97 22:03:0040.2[facility] FRHQXWNKEI9517-00-05 22:03:0087.4[facility] CkkdxcpVLLDEJQGDU9701-67-65 22:03:00 13.1[facility] OjzdlzaVSSRICSZAY7026-27-20 22:03:004.60[facility]annHEMATOLOGY 2015-05-02 22:03:00 Test Item Value Reference Range Interpretation Comments MCH (test code = MCH) 28.5 pg 27.0-31.0 [facility] RcoaxsvTAECEYVCNQ4314-58-14 22:03:0026.3[facility] HermannHEMATOLOGY 2015-05-02 22:03:0060.9[facility] CgdufpzATKRJHXJPX1796-60-75 22:03:001.0[facility] MakqagmLYOCPNWLCY1063-76-73 22:03:003.0[facility] NgbdmxmCIPXZPQWJP0722-22-93 22:03:008.8[facility] LmnwvbpEFPOKBRSVB7838-92-22 22:03:000.7[facility] NXCHONLFQZ4269-49-33 22:03:000.2[facility] HemxkbxHEDOACVANK0546-33-53 22:03:002.1 [facility] KkrrfouLYGJCPTPJL7948-12-40 22:03:004.9[facility]annHEMATOLOGY 2015-05-02 22:03:000.1[facility]annURINE AND WCLGZ3914-11-97 21:38:00Negative (05/02/15 4:38 PM)[facility] YHYYQ5900-93-46 21:38:00Moderate *ABN*(05/02/15 4:38 PM)[facility] JDLJR5863-96-88 21:38:00None Seen (05/02/15 4:38 PM)[facility] GEZNQ1788-23-85 21:38:00None Seen (05/02/15 4:38 PM)[facility] HYVBE2286-43-42 21:38:00Negative (05/02/15 4:38 PM)[facility] IHIMZ7031-95-93 21:38:00Negative *NA*(05/02/15 4:38 PM)[facility] PAHQJ8315-43-60 21:38:000.2 [facility] IGFNF1823-36-70 21:38:00Negative (05/02/15 4:38 PM) [facility] VNOLO9599-85-06 21:38:00Negative *NA*(05/02/15 4:38 PM) [facility] NAJZQ5312-11-57 21:38:00Yellow *NA*(05/02/15 4:38 PM) [facility] CLOAO3806-36-96 21:38:00 Test Item Value Reference Range Interpretation Comments UA pH (test code = UA pH) 6.0 1 5.0-8.0 [facility] QGGRQ1323-43-88 21:38:00Slight Cloudy (05/02/15 4:38 PM) [facility] DOZMS4288-52-79 21:38:00Negative (05/02/15 4:38 PM) [facility] YNZIT7666-73-66 21:38:00 Test Item Value Reference Range Interpretation Comments UA Spec Grav (test code = UA Spec 1.006 1 Grav) [facility]annCHEM XHFGL8925-75-46 09:28:52402Mdnjlxjb HermannCHEM PANEL 2015-03-24 09:28:40238Lihqjngc HermannCHEM YJNSV0840-04-15 09:28:000.7[facility]annCHEM SIAJU0307-97-34 09:28:004[facility]annCHEM FAQZI2024-39-35 09:28:003.2[facility]annCHEM KTMSM3688-30-60 09:28:36781Fyiiasew HermannCHEM EMQPY2757-13-38 09:28:0091[facility]annCHEM KUNBO3348-09-05 09:28:003.5 [facility]annCHE[facility] PRYUZ4930-19-87 09:28:006.6[facility]annCHEM PANEL 2015-03-24 09:28:95281Cxebydhn HermannCHEM HVOSD8879-17-85 09:28:009.1[facility]annCHEM LGGXZ9437-58-24 09:28:0027[facility]annCHEM PFKES8433-84-26 09:28:0011.2[facility] HermannCHEM KMDUC5492-50-08 09:28:0021[facility]annCHEM VSYRS0435-60-78 09:28:0034[facility]annCHEM WNEVQ9072-21-92 09:28:000.6 [facility]annCHEM ZUEPE5365-38-90 09:28:0095[facility]annCHEM PANEL 2015-03-24 09:28:006[facility]annCHEM XVLXZ3331-44-36 09:28:001.1[facility]annCHEM ZCHSY7136-23-82 09:28:003.1[facility] GjakobcVHVIEYFFFB5301-98-12 09:28:0011.3[facility] RpsvlllRGWPVAZVHE2750-09-79 09:28:0027.1[facility] PTQAYBBQYP2847-37-84 09:28:005.9[facility] VjbsxrxIQLDWLPTNR5218-28-55 09:28:003.3 [facility] GeltcbqHTBHHQZKML9291-78-34 09:28:000.7[facility] HermannHEMATOLOGY 2015-03-24 09:28:0055.0[facility] WawkedaWNPAIDXHJN5621-25-52 09:28:000.7[facility] VjyuqntIDEGSHTSBP8490-20-03 09:28:001.6[facility] QnbkkcnFTLRDCPOWB3286-64-84 09:28:000.4[facility] DkpbrzqGNZGGSJSJU1911-42-36 09:28:004.21[facility] LMZUVHTDMF7258-92-16 09:28:005.9[facility] ZuuqexfRBOUOCZGEV5398-46-76 09:28:56459 [facility] KocivifRVXIBMOHQP1583-37-45 09:28:0032.4[facility] HermannHEMATOLOGY 2015-03-24 09:28:0014.2[facility] KrdkaehYULVHTXLZG5171-40-98 09:28:008.6[facility] JpzmckkHEJQNHLGYI5745-44-03 09:28:0037.2[facility] YrxzlilZVQQEJSTXG0869-09-69 09:28:0088.3[facility] VqglieaERATHZUTLT7155-47-49 09:28:0012.1[facility] DTDAIWQVEU9449-70-82 09:28:00 Test Item Value Reference Range Interpretation Comments MCH (test code = MCH) 28.6 pg 27.0-31.0 [facility]annURINE AND VQAWY1369-21-83 18:14:00Negative (03/23/15 1:14 PM) [facility]annCARDIAC HQKVXGR7708-67-96 10:51:000.8[facility]annCARDIAC KFRXNSP9100-64-49 10:51:0070[facility]CARD[facility]AC RKHWMPM7711-25-42 10:51:00 1.1[facility]annCHEM GCOWI5538-44-72 10:51:27081Nwzhtror HermannCHEM PANEL 2015-03-23 10:51:0027[facility]annCHEM YCYSP8108-13-51 10:51:009.2[facility]annCHEM PYJDN2924-03-50 10:51:72475Yvummubq HermannCHEM KYMEC8782-85-61 10:51:67285Xpsuieij HermannCHEM OPKMV1678-92-22 10:51:003.5[facility]annCHEM XZPKH1096-54-61 10:51:000.7[facility]annCHEM SZBUN9986-43-89 10:51:008 [facility]annCHEM NRZBS5781-89-68 10:51:93417Glnwnxjn HermannCHEM PANEL 2015-03-23 10:51:0010.5[facility] HgcapzfNCJIDHHOIF5750-81-64 10:51:001.3[facility] OnhtkggDERIEGVYDO9508-10-34 10:51:003.4[facility] SvosbfmKOKGHUOIIQ3909-44-23 10:51:000.6[facility] VlyutcvZTHOZJKZCA8053-79-73 10:51:004.0[facility] EGVCQBNJHI1649-63-94 10:51:000.2[facility] UjxjkinJFWMDEUPAW6131-29-97 10:51:000.6 [facility] ZhriaruXPKAFIMYXN0435-85-98 10:51:0011.0[facility] HermannHEMATOLOGY 2015-03-23 10:51:0023.6[facility] HsxchvrMRWESJUSTC4983-01-37 10:51:0060.8[facility] FoycifkWDFEYTSZMT7527-35-36 10:51:008.3[facility] RjcwcfsKCLFHNKSIV0991-59-61 10:51:61458Asszwhzd KjnkeeoHBCNOALNYC6038-34-69 10:51:0014.6[facility] UJVDZXMMGJ5589-09-99 10:51:0088.0[facility] OlzwbnbOIVBDWVBUE0716-64-85 10:51:00 Test Item Value Reference Range Interpretation Comments MCH (test code = MCH) 28.7 pg 27.0-31.0 [facility] XujxrvsEDPUKHTILD5258-61-80 10:51:0034.7[facility] HermannHEMATOLOGY 2015-03-23 10:51:0032.6[facility] XyvpfnlGAHBHTWMJA6856-35-74 10:51:0011.3[facility] BdzgltyXTOMOBKPRX7051-51-51 10:51:003.94[facility] KsmqtsaCSQICRKQTD7116-65-63 10:51:005.6[facility]annCARDIAC VHRCMTS3380-81-48 10:19:001.6[facility] CARDIAC HGAQKSU8417-91-07 10:19:001.0[facility]annCARDIAC QBXSPJK7203-32-22 10:19:0064[facility]annCHEM KPIMV0351-25-59 10:19:86428Riyeftcm HermannCHEM VJNPJ0801-49-45 10:19:008.7[facility]annCHEM BKZZU3445-87-88 10:19:84242 [facility]annCHEM PADRL7092-33-17 10:19:003.9[facility]annCHEM PANEL 2015-03-22 10:19:52430Qmuqdtcr HermannCHEM KOVKP5414-47-58 10:19:0027[facility]annCHEM RVCTG2564-88-04 10:19:0094[facility]annCHEM QDVLY4843-58-89 10:19:008[facility]annCHEM HWSNU2029-97-02 10:19:000.6[facility]annCHEM CUOFE7103-69-30 10:19:008.9[facility] MphwtgxNUWFPNPBGG6562-29-82 10:19:000.2 [facility] WgaowiuTAHWUBATCS1147-77-65 10:19:000.5[facility] HermannHEMATOLOGY 2015-03-22 10:19:000.9[facility] BqbvxraPVCJYYZRNU0630-84-04 10:19:0011.2[facility] MnuvokpRINLEYGGXB7264-96-21 10:19:002.1[facility] YucemxoVQOKMEXYNH0475-91-71 10:19:003.7[facility] KsswjwzIEDZIRDNXV1504-66-41 10:19:001.6[facility] XUWAMRQUBF3833-93-23 10:19:0048.6[facility] QszovbfBXDWBNIEWO4840-79-01 10:19:00 35.emorial LatrmbzJVUVNFVPMS4107-91-54 10:19:008.9[facility] HermannHEMATOLOGY 2015-03-22 10:19:004.4[facility] PtpnrtkHWQJFQWVKZ5498-27-76 10:19:00 Test Item Value Reference Range Interpretation Comments MCH (test code = MCH) 29.9 pg 27.0-31.0 [facility] XconchcQIJMFFVLBB8475-32-35 10:19:0086.5[facility] HermannHEMATOLOGY 2015-03-22 10:19:0034.6[facility] CiaormfZUDYKDAUHJ8719-39-60 10:19:0011.7[facility] WpzqyqaQZRMOAPNFV6549-02-11 10:19:003.92[facility] FcarsqwEOBGKASJCR4437-79-21 10:19:0033.9[facility] VuseernFXGZYXIMNZ2822-26-69 10:19:0014.6[facility] FAOSKMVJIM2194-99-78 10:19:51956Xjswrrpw HermannCARDIAC GGGVZYY0287-65-10 03:22:001.6[facility]annCARDIAC SYQQVTW4918-30-33 03:22:0077[facility] CARDIAC NDQEHWJ5463-15-65 03:22:001.2[facility] HermannCHEM SQRFM4649-85-63 02:44:001.4[facility]annCARDIAC IIHEQFD8895-80-77 21:13:00<0.02[facility]annCHEM CILUC2377-23-40 21:13:003.3[facility]annCHEM STWTX6720-46-17 21:13:001.1[facility] HermannCHEM NZYPO1272-89-07 21:13:0016[facility]annCHEM ZFZMA0305-69-54 21:13:38286Emabsacj HermannCHEM GLAEW8271-98-49 21:13:0025 [facility]annCHEM QZIKO4278-91-87 21:13:000.5[facility]annCHEM PANEL 2015-03-21 21:13:0032[facility]annCHEM LNZVQ0206-10-55 21:13:003.7[facility] HermannCHEM OWALZ9469-08-38 21:13:007.0[facility] RtiojokMFCEMYABUB4410-91-85 21:13:000.0[facility] EkdbbfgVOLWVXQAQW0067-24-63 21:13:001.04[facility] QXOOPUMGGJ9993-29-36 21:13:00 Test Item Value Reference Range Interpretation Comments PT (test code = PT) 13.6 s 12.0-14.7 [facility] CveuseaWIPWJSMCIN5436-31-05 21:13:00 Test Item Value Reference Range Interpretation Comments PTT (test code = PTT) 35.2 s 22.9-35.8 [facility]annCARDIAC UNWJRWM9022-73-05 21:10:006[facility]annCARDIAC VXOBLQU5400-29-97 21:02:00<0.02[facility]annCARDIAC VZIMMCK6063-99-78 21:02:0031[facility]annCARDIAC DTDBWOL9002-80-31 21:02:000.8[facility] CARDIAC FCYXLTJ4976-62-95 21:02:0070[facility]annCARDIAC UWSGKSX9484-18-08 21:02:001.1[facility] HermannCHEM SGLKB4763-83-98 21:02:47168Womkysyz HermannCHEM NJQCN0850-96-10 21:02:0099[facility]annCHEM KLDJP8147-24-57 21:02:000.6 [facility]annCHEM VEKTE3230-27-53 21:02:0011[facility]annCHEM PANEL 2015-03-11 21:02:009.4[facility] HermannCHEM ZNVLM9045-04-73 21:02:003.1[facility]annCHEM GCCZJ0305-79-31 21:02:001.1[facility]annCHEM ZUBOC9714-03-96 21:02:0073[facility]annCHEM XOEYT6309-53-20 21:02:008[facility]annCHEM SBKKN6509-62-08 21:02:000.7[facility] HermannCHEM FBBRB0222-82-07 21:02:48601 [facility]annCHEM FYQLP6665-01-52 21:02:003.4[facility] HermannCHEM PANEL 2015-03-11 21:02:0028[facility] HermannCHEM QDSTR7028-41-85 21:02:02332Gdkiuioe HermannCHEM QRASD1568-69-12 21:02:008.9[facility] HermannCHEM FSGKH6694-08-81 21:02:006.5[facility]annCHEM JWJQM2358-77-19 21:02:003.4[facility] HermannCHEM ESIUV6670-03-73 21:02:0030[facility]annCHEM MZQQU8036-90-63 21:02:0021 [facility] IzkncqxAXWOBPKUNK1491-44-54 21:02:0015.1[facility] HermannHEMATOLOGY 2015-03-11 21:02:0033.1[facility] NnhlgotRZZGJJWJPG3342-12-12 21:02:60043Huexslig YdyuitkNZNMEHKMQJ9504-76-96 21:02:008.1[facility] VbyobctGZTSDAAVWF4672-60-18 21:02:0034.6[facility] KuykphdZIJMRSOGWF1077-49-09 21:02:0011.5[facility] OHPJZPRVTW2166-28-29 21:02:00 Test Item Value Reference Range Interpretation Comments MCH (test code = MCH) 28.8 pg 27.0-31.0 [facility] HyiztxnYWLXGLLVXF2504-15-61 21:02:0086.9[facility] HermannHEMATOLOGY 2015-03-11 21:02:003.98[facility] SpuebzxEQPCSMIDGK8111-30-64 21:02:006.5[facility] EojuoaaFIJIUAATWT8531-33-26 21:02:00 Test Item Value Reference Range Interpretation Comments PTT (test code = PTT) 32.8 s 22.9-35.8 [facility] MwiyxyxQGFGYKVUGV1234-77-61 21:02:00 Test Item Value Reference Range Interpretation Comments PT (test code = PT) 13.3 s 12.0-14.7 [facility] UwrnrgaGOGCFOOVEP4871-24-36 21:02:001.01[facility] HermannHEMATOLOGY 2015-03-11 21:02:000.0[facility] BhlenwvRWRNKVTLHX1523-24-61 21:02:003.7[facility] FwljqsiEEVQPEHBWD7021-05-56 21:02:000.2[facility] ItbantpFXLNVFZQUC3464-23-55 21:02:000.6[facility] DeeyjegFMRUQABISA0947-47-77 21:02:001.9[facility] ASLGANSZHE1845-85-38 21:02:0056.9[facility] LlklpqpZHNVRNLVLR9732-43-74 21:02:00 2.7[facility] XrrlajlSPEHXKNTPT5369-38-61 21:02:000.4[facility] HermannHEMATOLOGY 2015-03-11 21:02:009.9[facility] LaxhtyrKQDZQGLAXE2495-87-90 21:02:0030.1[facility] HermannCARDIAC WZDRRZL7591-33-29 09:33:00<0.02[facility] HermannCARDIAC ENZYMES 2015-03-05 06:16:00<0.02[facility] HermannCHEM NKPDZ5672-14-46 06:16:001.1 [facility]annCHEM JLXVW3270-13-80 06:16:003.5[facility] HermannCHEM PANEL 2015-03-05 06:16:000.5[facility] HermannCHEM KAPUF1875-46-20 06:16:000.1[facility] HermannCHEM HBCVO5891-29-27 06:16:0025[facility] HermannCHEM DYRAP4445-25-89 06:16:0021[facility] HermannCHEM ABRDA3415-57-77 06:16:003.7[facility] HermannCHEM WGWXM8209-40-76 06:16:66712Hswpidrh HermannCHEM HREZZ1033-99-53 06:16:000.6 [facility]annCHEM OGENP9433-63-18 06:16:007.2[facility] HermannCHEM PANEL 2015-03-05 06:16:94596Mskhkdxs NdxekqwNMSXNHPJZHRL5125-70-39 06:16:0012.6 [facility] ReigotfOIZWRWWTLAVO6923-66-21 06:16:0078[facility] HermannELECTROLYTES 2015-03-05 06:16:009.6[facility] MfuhtpoEENLVMTCCFOI8566-47-77 06:16:0029[facility] JdzgtsmXELWUEFLOBWH0242-34-48 06:16:003.6[facility] DkrtbctLXKDSHQZVCTV3245-47-17 06:16:13952Dnbclxri TtpjbasAMLAPGVPXUUU8756-11-79 06:16:25972Ewqzayxt Maciej UKGYOWTOQYKG0688-69-87 06:16:000.8[facility] KalbcigOVMQXNQWLCMP3245-31-12 06:16:009[facility] ZztrsssKACPAPMZZOLG5369-56-24 06:16:0096[facility] SIEADGPZJO3862-04-04 06:16:002.6[facility] YizltdgTJAEBHQYSM2708-76-95 06:16:000.9 [facility] BbogaejEOURVCEMZZ2220-73-86 06:16:000.7[facility] HermannHEMATOLOGY 2015-03-05 06:16:001.7[facility] WptnttrGWOEDPPFFP2251-97-27 06:16:006.7[facility] QynsahpOIYWXRFLOE0463-15-98 06:16:0025.0[facility] VedfewtIOYKHKLXNR1918-04-31 06:16:0064.3[facility] ZmueuxmPAIMYHVGHB0584-51-43 06:16:008.3[facility] RMPQCPNDQU3949-98-09 06:16:000.2[facility] ScsurszKOCSSAOXIA6626-30-16 06:16:000.1 [facility] MsvneizYENEMUVSXG9058-63-27 06:16:0087.7[facility] HermannHEMATOLOGY 2015-03-05 06:16:0039.7[facility] FmhvcyyADMKQYKNZA8801-56-40 06:16:008.0[facility] IdbdwsdHPIKCUOIJM2205-19-49 06:16:03551Opesxpst ZardadsYIRCLDFPHC5469-03-09 06:16:0014.6[facility] TdprxnpARGDAYWMHJ0079-44-65 06:16:0032.4[facility] ZMIJLMYPER6431-19-47 06:16:00 Test Item Value Reference Range Interpretation Comments MCH (test code = MCH) 28.4 pg 27.0-31.0 [facility] BfwdhqnMUODIKECKK5296-63-98 06:16:0010.5[facility] HermannHEMATOLOGY 2015-03-05 06:16:004.53[facility] JsvqtrlDFBBKYVTID3151-85-64 06:16:0012.9[facility] HermannCHEM CKLIW3647-82-00 09:16:002.0[facility]annCHEM SRXZR4248-56-98 09:16:003.6[facility] HermannCHEM HURML9487-67-39 09:16:85202Ewhuzzdo HermannCHEM LMVCU3079-77-23 09:16:0017[facility]annCHEM BHDYZ4229-71-91 09:16:003.3 [facility]annCHEM TPUQG9014-12-05 09:16:001.1[facility]annCHEM PANEL 2015-02-25 09:16:006.3[facility] HermannCHEM VTEYL5394-56-13 09:16:0021[facility]annCHEM KMOMY1248-59-53 09:16:003.0[facility]annCHEM FWKKD2328-28-08 09:16:000.5[facility] HermannCHEM AJVCM7348-19-21 09:16:34535Pabvtysw HermannCHEM PNCNX0984-84-55 09:16:0011[facility]annCHEM YPPMS9175-51-36 09:16:009.1 [facility]annCHEM WMRBG0119-08-27 09:16:0099[facility]annCHEM PANEL 2015-02-25 09:16:008[facility]annCHEM LJUMY4880-26-38 09:16:14153Hgjaxobh HermannCHEM BAOEJ5360-41-97 09:16:000.7[facility]annCHEM PKDUU0643-16-31 09:16:008.9[facility] HermannCHEM ZTQEV3159-58-81 09:16:32484Fxhjsnpe HermannCHEM RXVLP2656-99-64 09:16:0028[facility] HermannCHEM NJOFM6315-28-95 09:16:003.9 [facility] VounhipRSFEFOXPOB5068-24-64 09:16:40513Vhthxrnd HermannHEMATOLOGY 2015-02-25 09:16:008.8[facility] DaxffymAGYSVENJTH8036-49-49 09:16:0014.9[facility] IhyxcyoJJWXUHWBKL1934-97-07 09:16:005.9[facility] VlppnypIBILYHBWRO9137-03-40 09:16:0088.4[facility] SittnhxXMIZNNHSJK3430-05-85 09:16:0037.2[facility] KTFUOMUHIT0759-65-14 09:16:00 Test Item Value Reference Range Interpretation Comments MCH (test code = MCH) 28.6 pg 27.0-31.0 [facility] GabkyvyJHCELYGTHR2548-21-86 09:16:0032.4[facility] HermannHEMATOLOGY 2015-02-25 09:16:004.21[facility] YoibmicKAZOVFXSMY2296-75-25 09:16:0012.0[facility] HxmnhzaEQFHAVROYR3494-65-46 09:16:0031.9[facility] VmgfvjtHRAJEXUCAJ2607-84-87 09:16:000.8[facility] JipttraJOIPILZRDQ7686-25-36 09:16:003.1[facility] QSEHYPFINI5506-13-03 09:16:0011.6[facility] QjgzamtFCIRSPMIED4875-72-20 09:16:00 2.9[facility] DggkycpCDJHNENSKX1096-68-48 09:16:0052.8[facility] HermannHEMATOLOGY 2015-02-25 09:16:000.7[facility] QlfewunTIAIPOAUOI7682-14-55 09:16:001.9[facility] OryxkedNKULGHYOKY1794-38-98 09:16:000.2[facility] HermannCARDIAC VRRIDII0758-80-02 04:30:0074[facility]annCARDIAC GOPJCCP0922-46-43 04:30:001.2[facility] CARDIAC IJUOIFB4082-32-34 04:30:00<0.02[facility] HermannCARDIAC ENZYMES 2015-02-25 04:30:000.9[facility]annCARDIAC CBETPHH1750-48-37 23:29:00<0.02 [facility]annCARDIAC MBLFYGF2292-45-58 23:29:000.7[facility]annCARDIAC VZWIRKP6561-55-97 23:29:0068[facility]annCARDIAC WNULKBW3025-05-19 23:29:00 1.0[facility]annCARDIAC PDLHHRD6559-68-34 17:33:000.9[facility]annCARDIAC JLIPLNB8621-23-68 17:33:00<0.02[facility]annCARDIAC CEJBZWF0953-18-82 17:33:000.7[facility] HermannCARDIAC LTVLVLR4289-66-08 17:33:0076[facility] CHEM KLRTA4603-82-93 17:33:0090[facility] HermannCHEM THQQS6679-28-03 17:33:003.1 [facility] HermannCHEM YBDKV6716-82-92 17:33:14628Emamsfua HermannCHEM PANEL 2015-02-24 17:33:000.3[facility] HermannCHEM JSKFV6661-39-83 17:33:001.1[facility] HermannCHEM XJSTO9632-53-31 17:33:007.3[facility] HermannCHEM FYIWH8847-69-91 17:33:0012[facility] HermannCHEM OELKQ9095-12-50 17:33:000.8[facility] HermannCHEM VPGWT9307-17-81 17:33:69611Zchmyvgl HermannCHEM PSMPD3731-17-72 17:33:0088 [facility] HermannCHEM IGSIA2320-34-04 17:33:003.3[facility] HermannCHEM PANEL 2015-02-24 17:33:20958Wbmcqkbc HermannCHEM ZBGPI9683-29-61 17:33:0010[facility] HermannCHEM RIVJD6368-81-55 17:33:0015Mem[facility] HermannCHEM SWEKZ0277-82-45 17:33:0022[facility] HermannCHEM LCUPJ6345-49-28 17:33:008.9[facility] HermannCHEM CJIIQ0984-64-49 17:33:0030[facility] HermannCHEM YWZLM9431-41-52 17:33:006.6 [facility] HermannCHEM VRVVV2416-95-69 17:33:003.5[facility] HermannHEMATOLOGY 2015-02-24 17:33:0055.9[facility] FkdjnkeJGSDZLMHAI5240-13-56 17:33:0028.7[facility] AroantyLYWUMVPQIR5870-44-32 17:33:003.7[facility] IkqyfkmBKMHTBKFQX6604-10-05 17:33:000.7[facility] TfowsopMQJODXYCER9146-54-80 17:33:001.9[facility] TFMQBPEYRZ3359-52-35 17:33:002.2[facility] ZrderayCAXJAZYVKD4962-61-63 17:33:00 12.5[facility] RgnvuipWBCKBBSFUV3211-17-41 17:33:000.0[facility] HermannHEMATOLOGY 2015-02-24 17:33:000.1[facility] CceyflkJMAZGJUQTZ1050-85-34 17:33:000.8[facility] SfisbwnOHDCBBGXCF8428-95-93 17:33:008.8[facility] CxtqyvpQXEJUPQBVE7966-78-98 17:33:00 Test Item Value Reference Range Interpretation Comments MCH (test code = MCH) 28.1 pg 27.0-31.0 [facility] UujccesPGUCKPDEKL2653-25-86 17:33:0014.8[facility] HermannHEMATOLOGY 2015-02-24 17:33:0032.2[facility] JwyugjaHSYTPSIZHO5770-94-89 17:33:92768Iwidwpwy RjvnehsRIVQBJXSZW1857-26-62 17:33:0011.4[facility] FdnmwbbROAXRUSJHZ3222-27-95 17:33:004.04[facility] YtdcbjpBTNJLAVLTK5436-88-25 17:33:006.5[facility] JSXHXZLFJS9957-54-44 17:33:0035.3[facility] FacbhhqIGUEAGYSFD4203-80-49 17:33:00 87.2[facility] HermannCARDIAC YBKCVXD4223-87-70 09:54:006[facility]annCARDIAC KOXCGBD9969-67-33 09:54:00<0.02[facility] HermannCARDIAC MRHMHJA5444-47-51 09:54:001.0[facility] HermannCARDIAC BDQBONR3028-19-02 09:54:0077[facility] CHEM ZSNFX7612-78-26 09:54:001.8[facility] HermannCHEM EZUIO5330-74-88 09:54:68774 [facility] HermannCHEM UCJIF5466-00-08 09:54:80810Cjczynfe HermannCHEM PANEL 2015-02-17 09:54:003.8[facility] HermannCHEM OPQBF4190-36-63 09:54:95714Gxnudcdr HermannCHEM NPTRS3910-36-22 09:54:008.6[facility] HermannCHEM CQPSH9622-40-48 09:54:0011.8[facility] HermannCHEM UZXTT8838-61-90 09:54:0025[facility] HermannCHEM MGUET7649-92-72 09:54:000.6[facility] HermannCHEM SNTZZ6935-82-27 09:54:006 [facility] HermannCHEM WJXLQ6966-05-94 09:54:0072[facility] HermannHEMATOLOGY 2015-02-17 09:54:0011.5[facility] CvcqoltEBXDQV5694-43-06 09:54:0051[facility] UoxpuunASEHFW3322-11-44 09:54:0017[facility] QnmwfdbWTWTBV7384-88-61 09:54:0096 [facility] HfrnxmzYKYNBN1206-11-63 09:54:20748Dubqrvma YzcjzyfGXIKRE9891-26-14 09:54:0084[facility] JgcosjzFTIVMX4139-72-93 09:54:003.22[facility] HermannSPECIAL XHDAFQSEX3983-99-19 09:54:005.8[facility] HermannCARDIAC NYWKZYP6149-71-52 04:20:00<0.02[facility] HermannCARDIAC NWQMKTI9519-29-35 04:20:0092[facility] HermannCARDIAC AXFAVCP4489-60-02 04:20:001.2[facility] HermannCARDIAC ENZYMES 2015-02-16 22:59:001.2[facility] HermannCARDIAC JFRSLER9646-07-73 22:59:001.3 [facility] HermannCARDIAC OUZQZOF2045-08-38 22:59:0093[facility]annCARDIAC OOUNEXJ3231-09-26 22:59:00<0.02[facility] HermannCARDIAC QNOOEPI8402-31-29 22:59:004[facility] HermannCHEM OBMSD4158-43-45 22:59:03831Rcxxfgsa HermannCHEM NMDEE5572-96-69 22:59:001.0[facility] HermannCHEM ZJKCV8447-77-40 22:59:003.6 [facility] HermannCHEM VPBQA7290-67-81 22:59:000.4[facility] HermannCHEM PANEL 2015-02-16 22:59:000.1[facility] HermannCHEM JQVLC8724-39-45 22:59:000.5[facility] HermannCHEM DKPZR6667-67-04 22:59:007.3[facility] HermannCHEM XIQGU5856-46-02 22:59:32989Vxfpcxyk HermannCHEM PXASK2632-17-65 22:59:0015[facility]annCHE[facility] TRUDM6632-69-52 22:59:0021[facility]annCHE[facility] BGVQE0828-29-03 22:59:003.7 [facility] NZUUG0243-01-44 22:59:003.1[facility]annCHE[facility] PANEL 2015-02-16 22:59:001.9[facility]annCHE[facility] HLETT8914-26-90 22:59:0090[facility]annCHE[facility] EHQWF5938-78-12 22:59:009.0[facility]annCHE[facility] KZWKJ5073-02-10 22:59:0028[facility]CHE[facility] ZJTAW5858-48-28 22:59:17869Froqeatj HermannCHEM AYTQZ7288-23-66 22:59:000.8[facility]annCHE[facility] NPRJA5676-54-61 22:59:0011 [facility] SJCFG0039-23-81 22:59:003.5[facility]annCHEM PANEL 2015-02-16 22:59:23589Vxcdxdks HermannCHEM FGBZS7081-29-86 22:59:0076[facility]CHE[facility] ZDUKX3447-25-56 22:59:007.5[facility] LtvzetgPRNJSYWYYF7692-96-10 22:59:003.3[facility] MdquzepJNFVDAICYM6611-91-69 22:59:009.1[facility] XWOYXXSPGU8733-50-94 22:59:0028.9[facility] WzkkneeXWNMXQVOGG9912-03-68 22:59:00 58.3[facility] CkjyzkwODXZUUFCUR3272-07-12 22:59:003.8[facility]annHEMATOLOGY 2015-02-16 22:59:000.4[facility] OdepblkNZTOHZYZOT5267-78-83 22:59:000.6[facility] AoerhveFQXWPALVWP4510-94-79 22:59:001.9[facility] AanxkmgPQZDCDHLFT2202-63-21 22:59:000.2[facility] FpmqkkyMQXMYSNAOD5544-59-04 22:59:000.0[facility] IPGJPWQGXB4893-34-33 22:59:00 Test Item Value Reference Range Interpretation Comments PTT (test code = PTT) 36.0 s 22.9-35.8 [facility] CaulydnMYKDJALGLI2751-46-72 22:59:00 Test Item Value Reference Range Interpretation Comments PT (test code = PT) 12.9 s 12.0-14.7 [facility] IprricoMJQERXFBUU5415-00-13 22:59:000.97[facility]annHEMATOLOGY 2015-02-16 22:59:15174Zcrsxiyb QlqanmvQIBQSIZLJQ7054-12-14 22:59:0014.7[facility] NmjfxleMTMZUIRQGC1460-70-12 22:59:008.7[facility] RvbjfxlXCYNBNAYVL6869-02-34 22:59:0032.6[facility] FgeontoCGUJAZCWDY1016-47-39 22:59:0039.5[facility] BBRHGHOMVS3259-86-54 22:59:0087.3[facility] LxrgpcvFDMABJNMBD8387-81-98 22:59:00 Test Item Value Reference Range Interpretation Comments MCH (test code = MCH) 28.4 pg 27.0-31.0 [facility] EdjbkncYBBPZFBGFP8058-87-12 22:59:004.52[facility]annHEMATOLOGY 2015-02-16 22:59:0012.9[facility] WthkmjyJQJSXSWINZ0547-62-44 22:59:006.5[facility] JvcibthWZOEGGPDR0836-31-10 22:59:0046[facility]annCARDIAC VDGYOAZ7139-34-52 21:17:0015[facility]annCARDIAC HOZSQZG3707-77-31 21:17:00<0.02[facility]annCARDIAC HJRYSWP1325-48-82 21:17:0080[facility]annCARD[facility]AC ENZYMES 2013-12-22 21:17:00<0.5[facility]annCARDIAC ANEJSWF8120-05-60 21:17:00 <0.6[facility]annCHEM ZDRUA9168-43-21 21:17:39731Hiputnwn HermannCHEM LNMTE3614-46-52 21:17:003.6[facility]annCHE[facility] FCMTI2875-50-63 21:17:0017 [facility]CHE[facility] JNVWU9785-98-05 21:17:001.1[facility]annCHEM PANEL 2013-12-22 21:17:89742Jgyovibj HermannCHEM FNTKC7231-48-50 21:17:0034[facility]annCHE[facility] ZTNJP4017-54-65 21:17:003.9[facility]annCHE[facility] YNWUC4055-47-97 21:17:0089[facility]annCHEM MWXMA0966-66-61 21:17:0022[facility]annCHEM VHTYO8366-05-13 21:17:000.6[facility]annCHE[facility] YINNH7134-80-79 21:17:005.5 [facility]annCHE[facility] SIXKY6237-87-81 21:17:000.6[facility]annCHEM PANEL 2013-12-22 21:17:0010[facility]annCHEM NAIRX8043-51-31 21:17:003.5[facility]annCHEM WZQTD1915-09-68 21:17:60734Apxuoowk HermannCHEM BZICI7203-67-31 21:17:75961Bpzyvluo HermannCHEM MJLXH4476-56-54 21:17:0029[facility]annCHEM HZNYF9677-12-43 21:17:007.5[facility]annCHEM NIVKM3681-26-04 21:17:009.2 [facility]annDRUG TKQEPJ3893-62-48 21:17:00Negative *NA*(12/22/13 4:17 PM) [facility] QTNTPI9621-40-12 21:17:00Negative *NA*(12/22/13 4:17 PM) [facility] MMEZMH2787-68-82 21:17:00See Note 4*NA*(12/22/13 4:17 PM) [facility] RDSXJU4177-09-91 21:17:00Negative *NA*(12/22/13 4:17 PM) [facility] FPTOYE0038-48-45 21:17:00Negative *NA*(12/22/13 4:17 PM) [facility]DR[facility] AKNPFK0997-90-32 21:17:00Negative *NA*(12/22/13 4:17 PM) [facility] HermannDRUG XTSLWV7617-16-91 21:17:00Negative *NA*(12/22/13 4:17 PM) [facility] NXJVII5876-15-15 21:17:00Negative *NA*(12/22/13 4:17 PM) [facility] NbbvmhcLDEGVZLYVC4740-39-30 21:17:00 Test Item Value Reference Range Interpretation Comments PTT (test code = PTT) 35.2 s 22.9-35.8 [facility] PhchahsDQAOESQPAJ2605-99-86 21:17:00 Test Item Value Reference Range Interpretation Comments PT (test code = PT) 12.2 s 12.0-14.7 [facility] SsduejqEGGREYEMLI8549-50-12 21:17:000.91[facility]annHEMATOLOGY 2013-12-22 21:17:008.4[facility] QvfkojcOZSDVCPJSK1130-26-75 21:17:00 Test Item Value Reference Range Interpretation Comments MCH (test code = MCH) 29.2 pg 27.0-31.0 [facility] QccdiryEPEEOLRAJT2977-36-28 21:17:0033.4[facility]annHEMATOLOGY 2013-12-22 21:17:0014.5[facility] UhgzsztGTEHQDIPJS6454-69-46 21:17:52482Dgmjoixs YfnslukRDVROSBBSN6394-69-61 21:17:0041.6[facility] AcijxtvMGABKJIUFM1880-18-10 21:17:0087.5[facility] MerxcrdENGHJOLSLB3432-36-36 21:17:004.76[facility] NGFDTVXITC6089-57-56 21:17:0013.9[facility] UibfzsrKFWFEBEMCB0984-20-28 21:17:00 8.5[facility] VniupuaSUHARXBPFB8485-59-79 21:17:000.2[facility]annHEMATOLOGY 2013-12-22 21:17:000.0[facility] SdqwcmqFCDQDGJYQT3878-03-16 21:17:0066.1[facility] NpmxaasKWKXAGKHUD6072-98-85 21:17:006.1[facility] JqdpjlyVZJKCAPHFZ3171-95-97 21:17:0025.0[facility] QkmncoiJTTHXCJMSH5797-64-39 21:17:002.4[facility] UTMETKSLGY3047-16-38 21:17:000.4[facility] SbusiedPSTPRDUGWS6928-69-83 21:17:002.1 [facility] RjrabvsTOYFGFMHBQ8109-13-65 21:17:000.5[facility]annHEMATOLOGY 2013-12-22 21:17:005.6[facility]annURINE AND UBBXN9485-61-66 21:17:00Trace *ABN*(12/22/13 4:17 PM)[facility] ULAOO7562-06-83 21:17:00Negative *NA*(12/22/13 4:17 PM)[facility] UMEMA7819-51-12 21:17:000.2 [facility] BCDEH4832-05-20 21:17:00Small *ABN*(12/22/13 4:17 PM) [facility] FXOWX6007-13-77 21:17:00Negative *NA*(12/22/13 4:17 PM) [facility] JAALB0440-30-50 21:17:00Negative (12/22/13 4:17 PM) [facility] MKMBU2524-01-76 21:17:00Clear (12/22/13 4:17 PM) [facility] XTEKG2789-59-60 21:17:00Yellow *NA*(12/22/13 4:17 PM) [facility] QKSPI5533-00-32 21:17:00 Test Item Value Reference Range Interpretation Comments UA pH (test code = UA pH) 6.0 1 5.0-8.0 [facility] GSEMZ7302-34-52 21:17:00 Test Item Value Reference Range Interpretation Comments UA Spec Grav (test code = UA Spec 1.015 1 Grav) [facility] CXGLK8827-67-71 21:17:00Negative (12/22/13 4:17 PM) [facility] FEWAY2040-95-02 21:17:00Negative (12/22/13 4:17 PM) [facility]annCHE[facility] TFQDJ8328-52-48 15:55:312.7[facility]annCHEM PANEL 2013-12-17 15:55:312.2[facility] JubxsflHXEEVKLSEEIE7031-06-27 15:55:3110.5 [facility] JwvmoodDBRPMXDADDKP7154-35-78 15:55:3191[facility] HermannELECTROLYTES 2013-12-17 15:55:3110[facility] ItdzofgNWXBDDDBNUFJ1398-43-40 15:55:310.8[facility] TmvnqraQFKQMPJUMKZL3337-80-80 15:55:73038Tdqpbfbh GkrjqriUIREFBDCYTXE3561-26-39 15:55:3187[facility] ZtutsfcIHUCGITCJUMS6217-43-41 15:55:3130[facility] VVXZZKANLFAW7796-13-26 15:55:314.5[facility] CxohoogMWOHGACWCZYH6393-36-84 15:55:61670Xjubsmpt NhemfhnKRNZLMMOCRMR2280-94-16 15:55:318.6[facility] CGOPYZCUSP1793-88-04 15:55:310.97[facility] GcetcpcYUFLLCVOBV9362-73-24 15:55:31 Test Item Value Reference Range Interpretation Comments PTT (test code = PTT) 32.4 s 22.9-35.8 [facility] XcojaykGJHPFENIUB1026-18-82 15:55:31 Test Item Value Reference Range Interpretation Comments PT (test code = PT) 12.8 s 12.0-14.7 [facility] DozqameJNNOAHOSAP8060-75-38 15:55:3113.7[facility] HermannHEMATOLOGY 2013-12-17 15:55:314.88[facility] OunkvmpCSGMPKTYFF2580-88-30 15:55:31 Test Item Value Reference Range Interpretation Comments MCH (test code = MCH) 28.1 pg 27.0-31.0 [facility] GuhptyiFQFIXNVONU8285-60-87 15:55:3142.1[facility] HermannHEMATOLOGY 2013-12-17 15:55:3186.4[facility] YokyecySVCLUZYSSB4911-89-57 15:55:3114.3[facility] CqctxwsRKHPVKPJWM7823-74-60 15:55:3132.5[facility] YedhixbCDYGBNOAIS3616-41-41 15:55:318.4[facility] MprynilFCWIPPQTKG0494-20-77 15:55:35413[facility] [place] GSOGYYEWNL6114-70-58 15:55:317.2[facility] FjbkrypXAKHEBTVMB1313-02-84 15:55:31 10.7[facility] EyxrvoeJREBAHFAQO4185-93-69 15:55:3127.2[facility] HermannHEMATOLOGY 2013-12-17 15:55:311.9[facility] UswuqwbFDSPCMAYJQ1250-53-41 15:55:313.2[facility] TiatjfzCTEFHRMLWW2229-00-24 15:55:310.6[facility] QzcwtdeAWBSSRODHI9800-70-76 15:55:314.2[facility] RgwpqbuBSPYWNPEOY9232-08-32 15:55:310.2[facility] DDGQVCAZBD0224-37-98 15:55:310.8[facility] NrpzitsAOUUSLCRKU6338-08-21 15:55:31 58.3[facility] HermannPARATHYROID WZZFXLA1269-71-34 15:55:191.11[facility] PARATHYROID BETBHHZ3361-79-10 15:55:191.17[facility] HermannDRUG FANWNG4123-72-42 03:45:57Negative *NA*(12/16/13 10:45 PM)[facility]annDRUG WAUDNT7223-33-15 03:45:57Positive *ABN*(12/16/13 10:45 PM)[facility]annDR[facility] TLYABD4101-33-88 03:45:57Negative *NA*(12/16/13 10:45 PM)[facility]annDR[facility] WCZAJP3045-82-57 03:45:57Negative *NA*(12/16/13 10:45 PM)[facility]annDR[facility] CWJKEA3687-90-31 03:45:57Negative *NA*(12/16/13 10:45 PM)[facility]annDRUG BGTVSX5954-02-41 03:45:57See Note 6(12/16/13 10:45 PM)[facility]annDRUG DOVCOL6346-62-39 03:45:57Negative *NA*(12/16/13 10:45 PM)[facility]annDRUG QXQIJV4688-79-52 03:45:57Negative *NA*(12/16/13 10:45 PM)[facility] HermannCARDIAC FPFIILZ3278-36-91 03:45:0056[facility] HermannCARDIAC EYBBXUK4622-13-01 03:45:00<0.010[facility] HermannCARDIAC ZXKXRAX3264-07-51 03:45:00<0.02[facility] HermannCARDIAC ENZYMES 2013-12-17 03:45:0013[facility] JsrckkyKRRWBQ0860-06-96 03:45:0018[facility] [place] ARCPFI6235-98-93 03:45:0088[facility] KdilbjvCLKMWL5698-13-77 03:45:0088[facility] GqyhcaeAQMSRS6726-32-50 03:45:003.08[facility] AnqbujeYKFBJF9836-13-68 03:45:44546 [facility] AhvtcbtMNGWGP1429-91-19 03:45:0051[facility] HermannSPECIAL CHEMISTRY 2013-12-17 03:45:005.3[facility] HermannTHYROID OHPKU6631-76-79 03:45:000.870 [facility]annCARDIAC BOAIBXU5628-94-16 22:09:0042[facility] HermannCARDIAC FTDVTKM1747-62-93 22:09:00<0.02[facility] HermannCHEM XCVPW4822-66-55 19:30:00 1.3[facility] BfvnjnuASKIRZAFUO7719-30-60 19:30:00 Test Item Value Reference Range Interpretation Comments PT (test code = PT) 11.8 s 12.0-14.7 [facility] UqhwkmmZHBJPUHBYX6464-86-83 19:30:000.87[facility] HermannHEMATOLOGY 2013-12-16 19:30:00 Test Item Value Reference Range Interpretation Comments PTT (test code = PTT) 31.2 s 22.9-35.8 [facility] BbazbdyOPWNAVNSVR1360-86-74 19:30:004.69[facility] HermannHEMATOLOGY 2013-12-16 19:30:006.6[facility] GevfixoMXZMYUZURJ6557-85-27 19:30:0040.5[facility] UaardlxGOYLNNBMPX5980-81-73 19:30:0086.4[facility] OxnxvsvZIDCBPSGSX4081-33-34 19:30:0013.6[facility] QtmesofNLBDJZRUTQ2572-98-06 19:30:00 Test Item Value Reference Range Interpretation Comments MCH (test code = MCH) 29.0 pg 27.0-31.0 [facility] QekjlwcVEIVEQCGRZ5298-86-74 19:30:0033.6[facility] HermannHEMATOLOGY 2013-12-16 19:30:78655Xytpdcqa NbpqzilNTYROXLVDF2193-32-05 19:30:0013.4[facility] GvpydjzFLTVJGLFBI0915-91-56 19:30:008.6[facility] NmbmbynVGXMNHVAGO0073-53-53 19:30:000.8[facility] PxiqgtxTPLWOZKRJO2274-89-29 19:30:000.0[facility] [place] UPAODMIIPT7416-49-94 19:30:0012.1[facility] VaoaltnUTEBQSESEA0930-20-47 19:30:00 3.8[facility] DjjbmorFWBAROFGPQ6907-33-29 19:30:000.6[facility] HermannHEMATOLOGY 2013-12-16 19:30:003.9[facility] AgkuyvrFEALVTHBDV5028-08-70 19:30:000.3[facility] OjvveejWQSXKGJMNX3852-00-29 19:30:001.6[facility] DttfkjfOJNTZZCGOP5133-49-98 19:30:0025.0[facility] QozhmawKGNUDUOJNQ4409-03-96 19:30:0058.5[facility] [place] CHEM KXXMR0862-94-55 17:43:2479[facility] HermannCHEM DBRJD4629-31-42 17:43:240.9 [facility] HermannCHEM UNJXI7000-18-01 17:43:97358Qjacdamf HermannCHEM PANEL 2013-12-16 17:43:244.5[facility] HermannCHEM KCLEP3619-32-44 17:43:83181Bfgzdvnz HermannCHEM SANTB5649-27-25 17:43:2478[facility] HermannCHEM JFSIL7422-76-20 17:43:2411[facility] HermannCHEM POOMA2877-14-09 17:43:241.0[facility] HermannCHEM XPTRB9527-37-71 17:43:2412[facility] HermannCHEM EGJDE2677-30-37 17:43:243.6 [facility] HermannCHEM YHFJT0625-95-58 17:43:2416.5[facility] HermannCHEM PANEL 2013-12-16 17:43:247.2[facility] HermannCHEM MJYFC8758-15-16 17:43:2419[facility] HermannCHEM SIIHA7944-62-88 17:43:2423[facility] HermannCHEM IDBXV6180-98-74 17:43:249.2[facility] HermannCHEM YBQHH5320-46-48 17:43:240.3[facility] HermannCHEM JHGVB2909-34-06 17:43:243.6[facility] HermannCHEM PSUAQ8648-64-37 17:43:2487 [facility] HermannCHEM CSUYJ1452-25-74 17:43:2431[facility] HermannCARDIAC ENZYMES 2013-12-16 17:43:0056[facility] HermannCARDIAC WLITXXY0974-63-34 17:43:00<0.02 [facility] HermannCARDIAC CCKNWHD7937-76-89 19:12:00<0.02[facility] CARDIAC ZSUMBNI3375-71-37 19:12:0049[facility] HermannCARDIAC EZDHCHI3381-62-27 19:12:00<0.010[facility] WeclkieDBMAAKSZX3923-80-10 19:12:0036[facility] CARDIAC FBMKSSS1192-58-45 12:35:00<0.010[facility] HermannCARDIAC ENZYMES 2013-11-08 12:35:0054[facility] HermannCARDIAC MFWZEFZ6121-00-83 12:35:00<0.02 [facility] HermannCARDIAC PZLQAIP0868-38-69 08:36:00<0.02[facility] [place] VQHYFVCZJADD6539-83-46 08:36:0011.4[facility] SjxrukoSUWAFFQCINKR7481-07-96 08:36:0069[facility] NaoourqNHNVMDWKDAXI6609-11-71 08:36:009.2[facility] PVFXVCIRVXGN3397-46-62 08:36:0027[facility] FjuasxuDIEMSHVJDIQW0621-29-75 08:36:00 105[facility] XwgzjdqIJNBSRYSMAIE7761-28-80 08:36:003.4[facility] EOCNWOFMZVDJ9273-61-02 08:36:07103Ivclbvxb QwzjnweFPEFOKEHVHXP1544-18-32 08:36:0011[facility] UlcrxppJCXBBVSRIKWC0071-77-07 08:36:0084[facility] [place] NTSTQHQIGUZD9800-41-99 08:36:001.0[facility] IqiegbrRGZNZOLIPM2432-44-46 08:36:00 0.1[facility] GrfnyrvMJJCWIYIWG3967-82-96 08:36:000.2[facility] HermannHEMATOLOGY 2013-11-08 08:36:000.8[facility] XzxioxnXMTZZBRLJA5651-11-71 08:36:0072.5[facility] VlvftqvDIAGMBKMZL4107-78-17 08:36:0017.0[facility] CdkscghCRERELOZIC6294-83-64 08:36:002.1[facility] GmvwsdfLUZRYNNFTM9363-26-73 08:36:007.8[facility] UBYTQKEGNE9286-55-16 08:36:007.6[facility] AywwvgwWRLBPDWUDS5250-81-13 08:36:000.6 [facility] ZvlfqttEORRXRBJKZ4406-08-56 08:36:001.8[facility] HermannHEMATOLOGY 2013-11-08 08:36:008.7[facility] YqlzymcHRMUJQVBIV1554-20-16 08:36:0014.0[facility] BpsomkwRALZJXELAQ1946-95-89 08:36:36750Mbaxigxy KoinvmzVVZJQUQCZQ3027-50-07 08:36:0033.9[facility] MpmrgwxFKFVOTXHGI1132-72-77 08:36:004.65[facility] [place] MMKWVZIDRD9212-13-39 08:36:0010.6[facility] ZlczbfhKXVXKRWNPW3265-77-91 08:36:00 Test Item Value Reference Range Interpretation Comments MCH (test code = MCH) 29.3 pg 27.0-31.0 [facility]JsgbtqtCHWAPECAIA7814-63-46 08:36:0086.6[facility] HermannHEMATOLOGY 2013-11-08 08:36:0013.6[facility] SrpzgpfMYRKLWVTBV1437-46-74 08:36:0040.2[facility] [place]
[2020-06-24] MEDS ORDERED: MORPHINE 2 MG/ML SYR ONE (03:58)
[2020-06-24] MEDS ORDERED: NA CHLORIDE 0.9% 1,000 ML ONE ×2 (03:59→06:21)
[2020-06-24] MEDS ORDERED: ONDANSETRON 4 MG/2 ML VIAL ONE (03:59)
[2020-06-24] MEDS ORDERED: FAMOTIDINE 20 MG/2 ML VIAL IV ONE (03:59)
[2020-06-24 04:05] LABS: Absolute Lymphocytes (CBC) 2.4 K/uL (0.7-4.9); Basophils % 0.7 % (0-1.3); Hematocrit 42.6 % (36.0-45.0); Lymphocytes % 30.1 % (15.3-44.8); MPV 8.2 fL (7.6-11.3); RBC Red Blood Cell Count 5.02 M/uL (3.86-4.86)
[2020-06-24 04:11] LABS: ALT/SGPT 38 U/L (12-78); AST/SGOT 28 U/L (15-37); Albumin 3.7 g/dL (3.4-5.0); Alkaline Phosphatase 92 U/L (45-117); BUN Blood Urea Nitrogen 10 mg/dL (7-18); Bicarbonate 29 mmol/L (21-32); Bilirubin Direct 0.1 mg/dL (0-0.2); Bilirubin Total 0.3 mg/dL (0.2-1.0); Glucose Level 95 mg/dL (74-106); Lipase 452 U/L (73-393); Magnesium 2.1 mg/dL (1.8-2.4); NT PRO-BNP 12 pg/mL (<125); Potassium 3.5 mmol/L (3.5-5.1); Protein, Total 7.6 g/dL (6.4-8.2); Sodium Level 141 mmol/L (136-145); Troponin (Emerg Dept Use Only) < 0.02 ng/mL (0.0-0.045)
[2020-06-24 04:39] LABS: Protime INR 0.89
[2020-06-24 05:13] LABS: Urine Bacteria 20-50 /HPF (<20); Urine Culture Reflex Order REFLEXED; Urine RBC NONE SEEN /HPF (NONE SEEN)
[2020-06-24 05:15] LABS: Urine Blood NEGATIVE (NEG); Urine Glucose NEGATIVE (NEG); Urine Protein NEGATIVE (NEG); Urine Specific Gravity 1.015 (1.005-1.030)
[2020-06-24] MEDS ORDERED: Levofloxacin500mg IV 500 MG/100 ML BAG IV ONE (06:44)
[2020-06-24] MEDS ORDERED: Levofloxacin 750mg IV 750 MG/150 ML BAG IV SCH (07:00)
--- NOTE | 2020-06-24 07:31 | RAD REPORT ---
EXAM DESCRIPTION: RAD - Chest Single View - 06/24/2020 3:52 am CLINICAL HISTORY: SOB COMPARISON: Two view chest January 2015 TECHNIQUE: AP portable chest image was obtained 06/24/2020 3:52 am . FINDINGS: Interstitial opacification present throughout both lung roberto. Bilateral nipple shadows a re seen. No focal consolidation. Interstitial pattern is substantially increased from comparison even when adjusting for shallow inspiration. In the acute clinical setting this is most likely an interst itial infiltrate. Noncardiogenic interstitial edema or progressive fibrosis are possible. Heart and vasculature are normal. No measurable pleural effusion and no pneumothorax. No acute bony abnormality seen. No acute aortic findings suspected. IMPRESSION: Diffuse interstitial opacification. No focal mass or consolidation. In the acute clinical setting, a bronchitis/viral infiltrate process would be most likely. Pattern is not a typical COVID-19 presentation. Noncardiogenic interstitial edema or progressive fibrosis or possible as well.
--- NOTE | 2020-06-24 07:59 | RAD REPORT ---
EXAM DESCRIPTION: US - Pelvis Complete - 06/24/2020 7:46 am CLINICAL HISTORY: ovarian mass COMPARISON: Abdomen Pelvis W Contrast dated 06/24/2020 TECHNIQUE: Transabdominal pelvic sonography was performed. FINDINGS: Uterus is large for age measuring 10.1 x 5.7 x 8.4 cm. Uterus is lobulated with heterogene ous myometrium and multiple calcified and noncalcified masses. The calcified mass in the left adnexa, detailed on the CT study, is believed to be a calcified exophytic fibroid. A separate left ovary was identifiable. The left ovary was upper normal in size with no ovarian based solid or cystic mass. Ri ght ovary is also identifiable in shows no suspicious finding. IMPRESSION: Enlarged lobulated uterus containing multiple calcified and noncalcified fibroids. Exophytic calcified fibroid along the left lateral margin is the correlate to the left adnexal calcif ications detailed on the CT study. Both ovaries are identifiable and appear to be without an ovarian based solid or cystic mass.
--- NOTE | 2020-06-24 09:18 | ER ---
Nurse's Notes [facility] Name: Winsome Yepez Age: 70 yrs Sex: Female : 1950 Arrival Date: 06/24/2020 Time: 03:10 Bed 8 Private MD: Diagnosis: Abdominal tenderness;Ileus, unspecified;Urinary tract infection, site not specified;Leiomyoma of uterus, unspecified Presentation: 06/24 03:13 Ebola Screen: No symptoms or risks identified at this time. ea 03:13 Chief complaint: EMS states: patient complaint of difficulty of breathing , generalized rr5 weakness stared an hour ago. she also complaint of lower back pain. 03:13 Coronavirus screen: cough unrelated to allergies, difficulty breathing, Client presents rr5 with at least one sign or symptom that may indicate coronavirus-19. Standard/surgical mask placed on the client. Provider contacted for isolation considerations. Initial Sepsis Screen: Does the patient meet any 2 criteria? No. Patient's initial sepsis screen is negative. Does the patient have a suspected source of infection? No. Patient's initial sepsis screen is negative. 03:13 Care prior to arrival: Glucose check: 111. rr5 03:15 Risk Assessment: Do you want to hurt yourself or someone else? Patient reports no ea desire to harm self or others. Onset of symptoms was June 24, 2020. 03:15 Acuity: CYNTHIA 3 ea 03:15 Method Of Arrival: EMS: [facility] ea Triage Assessment: 03:14 General: Appears uncomfortable, Behavior is appropriate for age. ea Historical: - Allergies: 03:14 PENICILLINS; ea - PMHx: 03:14 High Cholesterol; Asthma; Myocardial infarction; Hypertension; ea - Immunization history:: Adult Immunizations up to date. - Social history:: Smoking status: Patient reports the use of cigarette tobacco products, smokes two packs cigarettes per day. Screenin:12 Abuse screen: Denies threats or abuse. Nutritional screening: No deficits noted. ea Tuberculosis screening: No symptoms or risk factors identified. Fall Risk None identified. 03:15 VAN Screening: Arm Drift: Patient shows no arm weakness. Patient is VAN negative. rr5 Assessment: 03:19 General: Appears in no apparent distress. uncomfortable, Behavior is calm, cooperative, rr5 appropriate for age. Pain: Complains of pain in left low back and right low back Pain radiates to left leg Pain currently is 10 out of 10 on a pain scale. Quality of pain is described as aching, Pain began gradually, Is intermittent. Neuro: Level of Consciousness is awake, alert, obeys commands, Oriented to person, place, time, situation. Cardiovascular: Capillary refill < 3 seconds Patient's skin is warm and dry. Respiratory: Reports shortness of breath cough that is Airway is patent Respiratory effort is even, unlabored, Respiratory pattern is regular, symmetrical. GI: No signs and/or symptoms were reported involving the gastrointestinal system. : No signs and/or symptoms were reported regarding the genitourinary system. EENT: No signs and/or symptoms were reported regarding the EENT system. Derm: Skin is intact, is healthy with good turgor, Skin temperature is warm. Musculoskeletal: Capillary refill < 3 seconds, Reports pain in left low back and right low back. 04:55 Reassessment: Patient and/or family updated on plan of care and expected duration. Pain ea level reassessed. Patient is alert, oriented x 3, equal unlabored respirations, skin warm/dry/pink. 05:20 Reassessment: Patient appears in no apparent distress at this time. No changes from rr5 previously documented assessment. 06:00 Reassessment: Patient appears in no apparent distress at this time. Patient is alert, rr5 oriented x 3, equal unlabored respirations, skin warm/dry/pink. BP of 84/64 mmHg ED provider aware with order made and carried out. 07:00 Reassessment: Patient appears in no apparent distress at this time. Patient is alert, rr5 oriented x 3, equal unlabored respirations, skin warm/dry/pink. BP rechecked 123/70 mmHg ongoing NS 2nd liter. 08:04 Reassessment: Patient appears in no apparent distress at this time. No changes from jl7 previously documented assessment. Patient and/or family updated on plan of care and expected duration. Pain level reassessed. Patient is alert, oriented x 3, equal unlabored respirations, skin warm/dry/pink. 09:00 Reassessment: Patient appears in no apparent distress at this time. No changes from jl7 previously documented assessment. Patient and/or family updated on plan of care and expected duration. Pain level reassessed. Patient is alert, oriented x 3, equal unlabored respirations, skin warm/dry/pink. 10:00 Reassessment: Patient appears in no apparent distress at this time. No changes from jl7 previously documented assessment. Patient and/or family updated on plan of care and expected duration. Pain level reassessed. Patient is alert, oriented x 3, equal unlabored respirations, skin warm/dry/pink. 11:00 Reassessment: Patient appears in no apparent distress at this time. No changes from jl7 previously documented assessment. Patient and/or family updated on plan of care and expected duration. Pain level reassessed. Patient is alert, oriented x 3, equal unlabored respirations, skin warm/dry/pink. 11:00 Reassessment: Awaiting room assignment. jl7 11:55 Reassessment: Attempted to call report, nurse will call back for report. jl7 13:10 Reassessment: Attempted to call report, nurse unavailable. jl7 Vital Signs: 03:13 Weight 49.9 kg; Height 5 ft. (152.40 cm); Pain 10/10; rr5 03:15 BP 90 / 72; Pulse 97; Resp 19; Temp 97.9; Pulse Ox 100% on R/A; ea 03:55 BP 101 / 62; Pulse 93; Resp 16; Pulse Ox 99% ; rr5 04:00 BP 104 / 92; Pulse 78; Resp 18; Pulse Ox 98% on R/A; ea 05:00 BP 96 / 65; Pulse 89; Resp 17; Pulse Ox 98% ; rr5 06:00 BP 84 / 62; Pulse 92; Resp 20; Pulse Ox 98% ; rr5 06:50 BP 121 / 62; Pulse 90; Resp 18; Pulse Ox 98% ; ea 08:04 BP 117 / 84; Pulse 87; Resp 19; Pulse Ox 97% ; jl7 09:00 BP 121 / 75; Pulse 86; Resp 19; Pulse Ox 97% ; rb1 10:00 BP 113 / 72; Pulse 66; Resp 15; Pulse Ox 97% ; jl7 11:00 BP 118 / 78; Pulse 66; Resp 17; Pulse Ox 97% ; jl7 11:53 BP 132 / 75; Pulse 75; Resp 15; Pulse Ox 96% ; jl7 12:30 BP 139 / 85; Pulse 71; Resp 15; Pulse Ox 98% ; jl7 13:30 BP 121 / 77; Pulse 70; Resp 15; Pulse Ox 98% ; jl7 03:13 Body Mass Index 21.48 (49.90 kg, 152.40 cm) rr5 ED Course: 03:10 Patient arrived in ED. bp1 03:14 Patient has correct armband on for positive identification. Placed in gown. Bed in low ea position. Call light in reach. Side rails up X 1. Pulse ox on. NIBP on. 03:14 Arm band placed on right wrist. Patient placed in an exam room, on a stretcher, on ea pulse oximetry. 03:16 Triage completed. ea 03:17 Abhay Gonzales MD is Attending Physician. 7 03:17 Bhanu Anna, RN is Primary Nurse. rr5 03:50 Inserted saline lock: 20 gauge in right antecubital area, using aseptic technique. rr5 Blood collected. 03:50 EKG done, by ED staff, reviewed by Abhay Gonzales MD. rr5 04:05 No provider procedures requiring assistance completed. Urine collected: clean catch rr5 specimen. 07:45 Attending Physician role handed off by Abhay Gonzales MD quin 07:45 Mark Jones MD is Attending Physician. quin 07:45 Primary Nurse role handed off by Bhanu Anna, RN jl7 07:45 Zoila Flores, RN is Primary Nurse. jl7 08:13 Procalcitonin Sent. jl7 08:13 Lactate Sent. jl7 08:13 Urine Dipstick--Ancillary (enter results) Sent. jl7 08:13 Urine Microscopic Only Sent. jl7 08:13 Lipase Sent. jl7 08:13 Troponin (emerg Dept Use Only) Sent. jl7 08:13 PT-INR Sent. jl7 08:13 NT PRO-BNP Sent. jl7 08:13 Magnesium Sent. jl7 08:13 LFT's Sent. jl7 08:13 CBC with Diff Sent. jl7 08:13 Basic Metabolic Panel Sent. jl7 09:16 Bhanu Garcia MD is Hospitalizing Provider. quin 10:13 COVID-19 Sent. jl7 12:17 pt daughter, Apolonia Page [phone]. bd 13:49 Patient admitted, IV remains in place. intact, No redness/swelling at site. jl7 Administered Medications: 03:50 Drug: Zofran (Ondansetron) 4 mg Route: IVP; Site: right antecubital; rr5 04:50 Follow up: Response: No adverse reaction rr5 03:52 Drug: Pepcid 20 mg Route: IVP; Site: right antecubital; rr5 04:50 Follow up: Response: No adverse reaction rr5 03:55 Drug: morphine 2 mg {Note: rass 0.} Route: IVP; Site: right antecubital; rr5 04:50 Follow up: Response: No adverse reaction; RASS: Alert and Calm (0) rr5 03:58 Drug: NS 0.9% 1000 ml Route: IV; Rate: 1000 ml; Site: right antecubital; rr5 05:20 Follow up: Response: No adverse reaction; IV Status: Completed infusion; IV Intake: rr5 1000ml 06:16 Drug: NS 0.9% 1000 ml Route: IV; Rate: 1 bolus; Site: right antecubital; rr5 07:20 Follow up: Response: No adverse reaction; IV Status: Completed infusion; IV Intake: jl7 1000ml 06:52 Drug: LevaQUIN 500 mg Volume: 100 ml; Route: IVPB; Infused Over: 60 mins; Site: right ea antecubital; 07:52 Follow up: Response: No adverse reaction; IV Status: Completed infusion jl7 09:25 Drug: Flagyl 500 mg Volume: 100 ml; Route: IVPB; Rate: 200 ml/hr; Infused Over: 30 jl7 mins; Site: right antecubital; 09:55 Follow up: IV Status: Completed infusion jl7 Intake: 05:20 IV: 1000ml; Total: 1000ml. rr5 07:20 IV: 1000ml; Total: 2000ml. jl7 Outcome: 09:17 Decision to Hospitalize by Provider. quin 13:48 Admitted to Tele accompanied by tech, via wheelchair, room 210, with chart, Report jl7 called to AZAM Hilton 13:48 Condition: stable 13:50 Patient left the ED. jl7 Signatures: Raya Philippe Corey, MD MD cha Barber, Rebecca, RN RN Zoila Steward RN RN jl7 Sara Kent RN RN ea Roque, Raymond, RN RN rr5 Sandy Snow Maurice, MD MD mh7 Corrections: (The following items were deleted from the chart) 08:06 06:06 Response: No adverse reaction; IV Status: Completed infusion; IV Intake: 1000ml [email or web address]
--- NOTE | 2020-06-24 09:18 | EDPHYS ---
Physician Documentation [facility] Name: Winsome Yepez Age: 70 yrs Sex: Female : 1950 Arrival Date: 06/24/2020 Time: 03:10 Bed 8 Private MD: ED Physician Mark Jones HPI: 06/24 03:42 This 70 yrs old Black Female presents to ER via EMS with complaints of Low Back Pain. mh7 Abdominal Pain. Breathing Difficulty,. 03:43 The patient presents with abdominal pain that is diffuse. Onset: The symptoms/episode mh7 began/occurred today, at 01:00. The symptoms radiate to both flanks. Associated signs and symptoms: Pertinent positives: nausea, shortness of breath, Pertinent negatives: anorexia, blood in stools, chest pain, constipation, diarrhea, dysuria, fever, headache, hematuria, palpitations, vaginal discharge, vomiting, vomiting blood. The symptoms are described as intermittent, vague, waxing/waning. Modifying factors: The symptoms are alleviated by nothing, the symptoms are aggravated by food. Severity of pain: At its worst the pain was moderate today, in the emergency department the pain has improved moderately. 03:43 Patient states that she ate a large meal \T\ 0100 then laid down on her sofa. She then mh7 started having lower back and abdominal pain. She felt SOB when got up and walked. She has had a mild cough. She denies any chest pain, fever, vomiting, diarrhea, or dysuria.. Historical: - Allergies: 03:14 PENICILLINS; ea - PMHx: 03:14 High Cholesterol; Asthma; Myocardial infarction; Hypertension; ea - Immunization history:: Adult Immunizations up to date. - Social history:: Smoking status: Patient reports the use of cigarette tobacco products, smokes two packs cigarettes per day. ROS: 03:43 Constitutional: Negative for fever, chills, and weight loss, Eyes: Negative for injury, mh7 pain, redness, and discharge, ENT: Negative for injury, pain, and discharge, Neck: Negative for injury, pain, and swelling, Cardiovascular: Negative for chest pain, palpitations, and edema, : Negative for injury, bleeding, discharge, and swelling, MS/Extremity: Negative for injury and deformity, Skin: Negative for injury, rash, and discoloration, Neuro: Negative for headache, weakness, numbness, tingling, and seizure, Psych: Negative for depression, anxiety, suicide ideation, homicidal ideation, and hallucinations, Allergy/Immunology: Negative for hives, rash, and allergies, Endocrine: Negative for neck swelling, polydipsia, polyuria, polyphagia, and marked weight changes, Hematologic/Lymphatic: Negative for swollen nodes, abnormal bleeding, and unusual bruising. Exam: 03:43 Constitutional: This is a well developed, well nourished patient who is awake, alert, mh7 and in no acute distress. Head/Face: Normocephalic, atraumatic. Eyes: Pupils equal round and reactive to light, extra-ocular motions intact. Lids and lashes normal. Conjunctiva and sclera are non-icteric and not injected. Cornea within normal limits. Periorbital areas with no swelling, redness, or edema. Neck: Trachea midline, no thyromegaly or masses palpated, and no cervical lymphadenopathy. Supple, full range of motion without nuchal rigidity, or vertebral point tenderness. No Meningismus. Chest/axilla: Normal chest wall appearance and motion. Nontender with no deformity. No lesions are appreciated. Cardiovascular: Regular rate and rhythm with a normal S1 and S2. No gallops, murmurs, or rubs. Normal PMI, no JVD. No pulse deficits. 03:43 Skin: Warm, dry with normal turgor. Normal color with no rashes, no lesions, and no evidence of cellulitis. MS/ Extremity: Pulses equal, no cyanosis. Neurovascular intact. Full, normal range of motion. Neuro: Awake and alert, GCS 15, oriented to person, place, time, and situation. Cranial nerves II-XII grossly intact. Motor strength 5/5 in all extremities. Sensory grossly intact. Cerebellar exam normal. Normal gait. Psych: Awake, alert, with orientation to person, place and time. Behavior, mood, and affect are within normal limits. 03:43 Respiratory: the patient does not display signs of respiratory distress, Respirations: normal, Breath sounds: rhonchi, that are mild, are scattered, Respiratory rate: 18 03:43 Abdomen/GI: Inspection: abdomen appears normal, Bowel sounds: normal, in all quadrants, Palpation: moderate abdominal tenderness, in all quadrants, Rectal exam: the exam is deferred, because of patient request, Indicators: McBurney's point is not tender, Dunham's sign is negative, Rovsing's sign is negative, Obturator sign is negative, Psoas sign is negative, Liver: no appreciated palpable abnormalities, Hernia: not appreciated. 03:43 Back: pain, is absent, ROM is normal, normal spinal alignment noted, CVA tenderness, that is moderate, is noted bilaterally, vertebral tenderness, is not appreciated, muscle spasm, is not present. 09:13 ECG was reviewed by the Attending Physician. quin Vital Signs: 03:13 Weight 49.9 kg; Height 5 ft. (152.40 cm); Pain 10/10; rr5 03:15 BP 90 / 72; Pulse 97; Resp 19; Temp 97.9; Pulse Ox 100% on R/A; ea 03:55 BP 101 / 62; Pulse 93; Resp 16; Pulse Ox 99% ; rr5 04:00 BP 104 / 92; Pulse 78; Resp 18; Pulse Ox 98% on R/A; ea 05:00 BP 96 / 65; Pulse 89; Resp 17; Pulse Ox 98% ; rr5 06:00 BP 84 / 62; Pulse 92; Resp 20; Pulse Ox 98% ; rr5 06:50 BP 121 / 62; Pulse 90; Resp 18; Pulse Ox 98% ; ea 08:04 BP 117 / 84; Pulse 87; Resp 19; Pulse Ox 97% ; jl7 09:00 BP 121 / 75; Pulse 86; Resp 19; Pulse Ox 97% ; rb1 10:00 BP 113 / 72; Pulse 66; Resp 15; Pulse Ox 97% ; jl7 11:00 BP 118 / 78; Pulse 66; Resp 17; Pulse Ox 97% ; jl7 11:53 BP 132 / 75; Pulse 75; Resp 15; Pulse Ox 96% ; jl7 12:30 BP 139 / 85; Pulse 71; Resp 15; Pulse Ox 98% ; jl7 13:30 BP 121 / 77; Pulse 70; Resp 15; Pulse Ox 98% ; jl7 03:13 Body Mass Index 21.48 (49.90 kg, 152.40 cm) rr5 MDM: 03:35 Patient medically screened. 7 08:06 Patient medically screened. quin 09:14 Differential diagnosis: AAA, appendicitis, bowel obstruction, cholecystitis, quin Cholelithiasis, gastritis, gastroesophageal reflux disease, Hepatitis, Mesenteric ischemia or infarction, non-specific abd pain, pancreatitis, Peptic Ulcer Disease, Peritonitis, Pyelonephritis, Ureterolithiasis. Data reviewed: vital signs, nurses notes, lab test result(s), EKG, radiologic studies, CT scan, plain films, ultrasound. 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 Test interpretation: by ED physician or midlevel provider: ECG, plain radiologic studies. Counseling: I had a detailed discussion with the patient and/or guardian regarding: the historical points, exam findings, and any diagnostic results supporting the discharge/admit diagnosis, lab results, radiology results, the need for further work-up and treatment in the hospital. 06/24 03:34 Order name: Basic Metabolic Panel 06/24 03:34 Order name: CBC with Diff 06/24 03:34 Order name: LFT's 06/24 03:34 Order name: Magnesium 06/24 03:34 Order name: NT PRO-BNP 06/24 03:34 Order name: PT-INR 06/24 03:34 Order name: Troponin (emerg Dept Use Only) 06/24 03:35 Order name: Lipase 06/24 04:05 Order name: Urine Microscopic Only rr5 06/24 04:07 Order name: Urine Dipstick--Ancillary (enter results) [facility] 06/24 04:12 Order name: Basic Metabolic Panel; Complete Time: 04:14 EDNJ 06/24 04:12 Order name: Liver (Hepatic) Function; Complete Time: 04:14 [facility] 06/24 04:12 Order name: Troponin (Emerg Dept Use Only); Complete Time: 04:14 EDN[facility] 06/24 04:12 Order name: NT PRO-BNP; Complete Time: 04:14 [facility] 06/24 03:34 Order name: XRAY Chest (1 view) 06/24 04:12 Order name: Magnesium; Complete Time: 04:14 EDMS 06/24 04:12 Order name: Lipase; Complete Time: 04:14 [facility] 06/24 04:16 Order name: CT Chest For PE Angio [facility] 06/24 04:16 Order name: CT Abd/Pelvis - IV Contrast Only [facility] 06/24 04:32 Order name: CBC with Automated Diff; Complete Time: 04:33 EDMS 06/24 04:40 Order name: Protime (+INR); Complete Time: 04:58 [facility] 06/24 05:14 Order name: Urine Microscopic Only; Complete Time: 06:28 [facility] 06/24 05:16 Order name: Urine Dipstick-Ancillary; Complete Time: 06:28 [facility] 06/24 06:31 Order name: Lactate [facility] 06/24 06:31 Order name: Procalcitonin [facility] 06/24 07:06 Order name: Lactate; Complete Time: 09:08 [facility] 06/24 07:20 Order name: Procalcitonin; Complete Time: 09:08 [facility] 06/24 09:20 Order name: COVID-19 quin 06/24 10:13 Order name: CORONAVIRUS [facility] 06/24 11:44 Order name: SARS-COV-2 RT PCR [facility] 06/24 03:34 Order name: EKG; Complete Time: 03:35 06/24 03:34 Order name: Cardiac monitoring; Complete Time: 03:59 06/24 03:34 Order name: EKG - Nurse/Tech; Complete Time: 03:45 06/24 03:34 Order name: IV Saline Lock; Complete Time: 03:45 06/24 03:34 Order name: Labs collected and sent; Complete Time: 03:45 06/24 03:34 Order name: O2 Per Protocol; Complete Time: 03:45 06/24 03:34 Order name: O2 Sat Monitoring; Complete Time: 03:45 06/24 03:41 Order name: Urine Dipstick-Ancillary (obtain specimen); Complete Time: 04:05 [facility] 06/24 07:05 Order name: US Pelvis Complete [facility] 06/24 07:32 Order name: RAD; Complete Time: 09:08 [facility] 06/24 07:59 Order name: US; Complete Time: 09:08 [facility] 06/24 12:31 Order name: CT [facility] 06/24 12:34 Order name: CT EDNJ EC:13 Rate is 88 beats/min. Rhythm is regular. QRS [place] is Normal. ID interval is normal. QRS quin interval is normal. QT interval is normal. No Q waves. T waves are Normal. No ST changes noted. Clinical impression: NSR w/ Non-specific ST/T Changes. Interpreted by me. Reviewed by me. Administered Medications: 03:50 Drug: Zofran (Ondansetron) 4 mg Route: IVP; Site: right antecubital; rr5 04:50 Follow up: Response: No adverse reaction rr5 03:52 Drug: Pepcid 20 mg Route: IVP; Site: right antecubital; rr5 04:50 Follow up: Response: No adverse reaction rr5 03:55 Drug: morphine 2 mg {Note: rass 0.} Route: IVP; Site: right antecubital; rr5 04:50 Follow up: Response: No adverse reaction; RASS: Alert and Calm (0) rr5 03:58 Drug: NS 0.9% 1000 ml Route: IV; Rate: 1000 ml; Site: right antecubital; rr5 05:20 Follow up: Response: No adverse reaction; IV Status: Completed infusion; IV Intake: rr5 1000ml 06:16 Drug: NS 0.9% 1000 ml Route: IV; Rate: 1 bolus; Site: right antecubital; rr5 07:20 Follow up: Response: No adverse reaction; IV Status: Completed infusion; IV Intake: jl7 1000ml 06:52 Drug: LevaQUIN 500 mg Volume: 100 ml; Route: IVPB; Infused Over: 60 mins; Site: right ea antecubital; 07:52 Follow up: Response: No adverse reaction; IV Status: Completed infusion jl7 09:25 Drug: Flagyl 500 mg Volume: 100 ml; Route: IVPB; Rate: 200 ml/hr; Infused Over: 30 jl7 mins; Site: right antecubital; 09:55 Follow up: IV Status: Completed infusion jl7 Disposition: 06/24/20 09:17 Hospitalization ordered by Bhanu Garcia for Inpatient Admission. Preliminary diagnosis are Abdominal tenderness, Ileus, unspecified, Urinary tract infection, site not specified, Leiomyoma of uterus, unspecified. - Bed requested for Telemetry/MedSurg (Inpatient). - Status is Inpatient Admission. jl7 - Condition is Fair. - Problem is new. - Symptoms have improved. Signatures: Dispatcher [employer] EDSusanna Anaya RN RN dw Anderson, Corey, MD MD cha Attema, Lee, DISPLAY MECHANIC-C DISPLAY MECHANIC-Cla1 Zoila Flores RN RN jl7 Sara Kent RN RN ea Anna, Bhanu, RN RN rr5 Abhay Gonzales MD MD mh7 Corrections: (The following items were deleted from the chart) 11:54 09:17 Hospitalization Ordered by Bhanu Garcia MD for Inpatient Admission. Preliminary dw diagnosis is Abdominal tenderness; Ileus, unspecified; Urinary tract infection, site not specified; Leiomyoma of uterus, unspecified. Bed requested for Telemetry/MedSurg (Inpatient). Status is Inpatient Admission. Condition is Fair. Problem is new. Symptoms have improved. quin 13:50 11:54 06/24/2020 09:17 Hospitalization Ordered by Bhanu Garcia MD for Inpatient jl7 Admission. Preliminary diagnosis is Abdominal tenderness; Ileus, unspecified; Urinary tract infection, site not specified; Leiomyoma of uterus, unspecified. Bed requested for Telemetry/MedSurg (Inpatient). Status is Inpatient Admission. Condition is Fair. Problem is new. Symptoms have improved. dw
[2020-06-24] MEDS ORDERED: METRONIDAZOLE 500mg IVPB 500 MG/100 ML BAG IV ONE (09:33)
--- NOTE | 2020-06-24 10:07 | EKG ---
Test Date: 2020-06-24 Test Time: 03:45:22 Electronics Tech: NICOLAS MEASUREMENT RESULTS: Intervals: Rate: 88 CA: 154 QRSD: 82 QT: 382 QTc: 462 [place]: P: 81 CA: 154 QRS: 67 T: 76 INTERPRETIVE STATEMENTS: Normal sinus rhythm Nonspecific T wave abnormality Abnormal ECG Compared to ECG 10/24/2016 21:37:47 T-wave abnormality now present Sinus bradycardia no longer present Electronically Signed On 06-24-20 10:06:32 CDT by Clint Norris
--- NOTE | 2020-06-24 10:50 | P.HP ---
Certification for Inpatient Patient admitted to: Inpatient With expected LOS: >2 Midnights Practitioner: I am a practitioner with admitting privileges, knowledge of patient current condition, hospital course, and medical plan of care. Services: Services provided to patient in accordance with Admission requirements found in Title 42 Section 412.3 of the Code of Federal Regulations Patient History Date of Service: 06/24/20 Reason for admission: Abdominal pain, possible ileus / partial obstruction vs internal hernia History of Present Illness: 70yo female, PMH: CAD s/p stentx3, asthma, sickle cell anemia, tobacco use who presents to ED with severe abdominal pain. She states pain began last night after eating dinner. She felt dizzy, almost falling, and laid down. Once she la id down, she felt severe upper abdominal pain and some pain in her lower back. She also reports some associated difficulty breathing. She denies nausea/vomiting. Her last BM was ~3-4 days ago, she typically has a BM every other day. Also endorses 1 week of dysuria. In the ED vitals were stable/WNL, labs revealed no leukocytosis, CMP was normal, negative troponin, lactate: 1.1, elevated lipase: 452. UA: 3+ leukocyte esterase, 20-50, bacteria, 05-[address] & CT abdomen/pelvis: Negative for PE, no consolidation or edema, no pleural fluid her pneumothorax. Swelling of the inferior mesenteric vessels concerning for possible internal hernia. Mild dilatation of a few small bowel loops which may be due to ileus versus enteritis versus incomplete obstruction. Thickening and enhancement of pylorus may represent ulcerative disease. Allergies Penicillins Allergy (Intermediate, Verified 12/08/14 00:01) swelling Home Medications: Aspirin Chewable [Aspirin Chewable*] 81 mg PO DAILY PRN 06/24/20 - Past Medical/Surgical History Diabetic: No -: CAD s/p stent x3 -: Asthma -: Sickle Cell anemia -: 3 stents -: "lower back surgery" - Family History Mother -: Heart disease - Social History Smoking Status: Current every day smoker (>50yrs) Counseled patient to stop smoking for: less than 10 minutes Smoking therapy provided: Yes Alcohol use: No CD- Drugs: No Caffeine use: Yes Place of Residence: Home (with sister) Review of Systems 10-point ROS is otherwise unremarkable Physical Examination - Physical Exam General: Alert, Mild distress (Appears uncomfortable, somewhat tearful) HEENT: Sclerae nonicteric Neck: Supple Respiratory: Clear to auscultation bilaterally Cardiovascular: No edema, Regular rate/rhythm Gastrointestinal: Soft and benign, Tenderness (Upper abdomen, most severe in the epigastric region) Musculoskeletal: No tenderness Integumentary: No rashes Neurological: Normal speech, Normal affect - Studies Laboratory Data (last 24 hrs) 06/24/20 03:40: PT 10.5, INR 0.89 06/24/20 03:40: WBC 8.0, Hgb 14.5, Hct 42.6, Plt Count 244 06/24/20 03:40: Sodium 141, Potassium 3.5, BUN 10, Creatinine 0.90, Glucose 95, Magnesium 2.1, Total Bilirubin 0.3, AST 28, ALT 38, Alkaline Phosphatase 92, Lipase 452 H Assessment and Plan - Advance Directives Does patient have a Living Will: No Does patient have a Durable POA for Healthcare: No Physician Review Additional Text: Abdominal pain, concern for ileus vs partial obstruction vs internal hernia vs enteritis CAD s/p stent x3 Sickle cell anemia Asthma Nicotine dependence Possible UTI (cystitis) -admit to med/surg, patient is not septic on admission -NPO, IV fluids, morphine for pain control -Levaquin and Flagyl to cover for possible enteritis -general surgery consulted -serial abdominal exams -repeat labs in a.m. -unclear cause of elevated lipase, possible mild acute pancreatitis without radiographic evidence UA positive for leuk esterase, bacteria, sent for culture. Patient with dysuria x1 week. Should be covered by Levaquin Dispo: Anticipate dc home in ~48hrs Time Spent Managing Pts Care (In Minutes): 55
--- NOTE | 2020-06-24 12:29 | RAD REPORT ---
EXAM DESCRIPTION: CT - Chest For Pe Angio - 06/24/2020 6:48 am CLINICAL HISTORY: SOB COMPARISON: None. TECHNIQUE: Axial CT imaging of the thorax utilizing intravenous contrast. Reformatted multiplanar im ages obtained including reconstructed maximum intensity projection images. This exam was performed according to our departmental dose-optimization program which includes automa marcelle exposure control, adjustment of the mA and/or kV according to patient size and/or use of iterativ e reconstruction technique FINDINGS: PULMONARY ARTERIES: Normal caliber main pulmonary artery. No filling defect within the ri ght atrium or ventricle. No filling defect within the central or peripheral pulmonary arteries. HEART/GREAT VESSELS: Heart is normal in size. There are significant coronary artery calcifications. There is ectasia of the thoracic aorta. There is significant atherosclerosis within the aortic arch. No aneurysm. MEDIASTINUM/ROBYN: No adenopathy. Normal trachea and main bronchi. Unremarkable esophagus. LUNGS/PLEURA: There is bilateral mild bronchial thickening. Minimal dependent bilateral lower lobe l stan changes. No consolidation or edema. No pleural fluid or pneumothorax. CHEST WALL/SOFT TISSUES: Unremarkable thyroid. No axillary lymphadenopathy. Sternum is intact. There is a Schmorl's node along the superior margin T11. Remaining bony thorax appears intact. UPPER ABDOMEN: The included liver, spleen, and stomach appear normal. IMPRESSION: 1. No pulmonary embolism. 2. Bronchitis. 3. Significant atherosclerosis of the thoracic aorta. Electronically signed by: Gabriella Vincent DO 06/24/2020 5:30 AM CDT Due to temporary technical issues with the PACS/Fluency reporting system, reports are being signed by the in house radiologist without review as a courtesy to ensure prompt reporting. The interpreting r adiologist is fully responsible for the content of the report.
--- NOTE | 2020-06-24 12:32 | RAD REPORT ---
EXAM DESCRIPTION: CT - Abdomen Pelvis W Contrast - 06/24/2020 6:48 am CLINICAL HISTORY: Difficulty breathing, generalized weakness. Abdominal pain. COMPARISON: None. TECHNIQUE: Axial CT imaging of the abdomen and pelvis performed with intravenous contrast. Reformatt ed coronal and sagittal images reviewed. A dose reduction technique was utilized with automated exposure control according to patient size. FINDINGS: Lung bases are clear. Heart is normal in size. Unremarkable liver and gallbladder. Normal spleen and pancreas. Normal adrenal glands. There is a non obstructing 3 mm stone within the inferior pole of the right kidney and 2 mm stone in the inferior po le of the left kidney. There is mild dilatation of the left extrarenal pelvis. No definite urinary tr act stones. There is significant abdominal aorta atherosclerosis. No aneurysm. Normal caliber inferior vena cava. No adenopathy. There is a swirling of the inferior mesenteric vessels. Stomach is moderately distended. There is mild thickening and mucosal enhancement of the pylorus. The re is mild fluid dilatation of a few small bowel loops within the right abdomen. No obstruction or tr ansition point. Large amount of fecal loading throughout the colon there is no ascites or free air. N o mesenteric adenopathy. Unremarkable bladder. Uterus contains dystrophic calcifications compatible with degenerating fibroids . There is a cluster of dystrophic calcifications within the left adnexal region collectively measuri ng 2.5 cm which may be within left ovary could represent exophytic uterine fibroid. There is trace pe lvic free fluid. No pelvic adenopathy. There is an old moderate anterior superior endplate fracture of L2. There is bilateral transpedicular fixation at L4-S1 with interbody fusion. There is an old mild superior endplate depression deformity with a Schmorl's node at T12. There are subchondral cystic changes within the right and left bony ac etabulum and superior margin of the right and left femoral head with loss of the superior joint space compatible with osteoarthritis. IMPRESSION: 1. Swirling of the inferior mesenteric vessels concerning for possible internal hernia. There is mild dilatation of a few small bowel loops in the right lower quadrant with no transition po int which may be due to ileus versus enteritis versus incomplete obstruction. 2. Thickening and enhancement of the pylorus may represent ulcerative disease. No perforation. 3. Constipation. 4. Numerous heterogeneous masses within the pelvis, some with dystrophic calcifications, compatible w ith degenerating fibroids. A left adnexal cluster of calcifications may be within the left ovary or c ould represent an exophytic fibroid. 5. Nonobstructing inferior right and left nephrolithiasis. 6. Postoperative and remote traumatic changes of the lower thoracic and lumbar spine as detailed ramila vargas. Electronically signed by: Gabriella Vincent DO 06/24/2020 5:24 AM CDT Due to temporary technical issues with the PACS/Fluency reporting system, reports are being signed by the in house radiologist without review as a courtesy to ensure prompt reporting. The interpreting r adiologist is fully responsible for the content of the report.
[2020-06-24] MEDS ORDERED: MORPHINE 2 MG/ML SYR IV PRN (13:56)
[2020-06-24] MEDS ORDERED: ONDANSETRON 4 MG/2 ML VIAL IV PRN (13:56)
[2020-06-24 14:32] VITALS: BMI 21.4
[2020-06-24] MEDS: NICOTINE 21 MG/PAT TD SCH (15:12)
[2020-06-24] MEDS: NA CHLORIDE 0.9% 1,000 ML IV SCH (15:12)
--- NOTE | 2020-06-24 15:56 | CON ---
Date of Consultation: 06/24/2020 Brief History Of Present Illness: The patient is a 70-year-old female, who presents with abdominal pain beginning 1-2 days ago. She states that it was after eating a bowl of cereal. She has had multiple episodes before in the past. Going back about 3-4 years, she has had similar ep isodes like this, treated most the time at home without any significant intervention or treatment. S he states it has been ongoing chronic situation for her and that it typically is self-limited. She f urther states that she currently feels somewhat better. She has had some nausea associated, but no v omiting. She had a bowel movement 2 days ago, which was softer and more runny she states, but of a l arge volume. She continues to pass gas. At this point, she cannot recall her last colonoscopy or if she has ever had a colonoscopy. She states that she additionally had some shortness of breath as we ll. Past Medical History: Significant for sickle cell, coronary disease, asthma. Past Surgical History: Includes coronary stents x3 and back surgery x2 for lumbar spine posterior ap proach. Allergies: PENICILLIN. Home Medications: Include aspirin, Plavix, Robaxin, Lipitor, [place], Lopressor. Social History: She smokes, has a 50+ pack year history. She denies alcohol or recreational drug us e. Review of Systems: Ten point review of systems other than HPI, denies. Physical Examination: Vital Signs: At the time of my examination, temperature 97.1, heart rate 68, respiratory rate is 15, blood pressure 112/83, SpO2 90% on room air. General: She is awake, alert, oriented. Psychiatric: Appropriate, conversive. HEENT: She is normocephalic. Sclerae anicteric. Mucous members are moist. Oropharynx is clear. Neck: Supple. No JVD. Chest: Normal to expansion and excursion. Cardiac: Regular rate and rhythm. Pulmonary: Clear to auscultation bilaterally. Abdomen: Soft with mild global tenderness to palpation. No rebound. No guarding. No focal periton itis. She is nondistended. She has a scaphoid abdomen. There are no peritoneal signs evident. Ext remities: No clubbing, cyanosis, or edema. Skin: Warm and dry. Laboratory Data: Reveals a white blood count 8.0, hemoglobin is 14.5, hematocrit of 42.6, platelet c ount is 244. Her PT is 10.5, INR 0.89. Her sodium is 141, potassium 3.5, chloride 106, carbon dioxi de is 29, BUN 10, creatinine 0.9, glucose was 95, lactic acid 1.1, calcium 2.1. Total bilirubin 0.3, direct bilirubin 0.1, AST 20, ALT 38, alkaline phosphatase is 92. Troponin less than 0.02. ProBNP was 12. Lipase is 452. Procalcitonin is less than 0.05. Her UA showed 3+ leukocyte esterase, white blood cells, and bacteria. Her PCR serology for COVID was negative. She had imaging performed, i ch included a CTA of the chest shows no evidence of pulmonary embolus. She has a CT abdomen and pelv is as well, officially read as swelling of the inferior mesenteric vessels concerning for possible in ternal hernia, mild dilatation, a few small bowel loops in the right lower quadrant with no transitio n point, which may be due to ileus versus enteritis versus incomplete obstruction, thickened pylorus may represent ulcerative disease, no perforation or constipation, numerous heterogeneous masses withi n the pelvis, some dystrophic calcification compatible with degenerative fibroids, left adnexal calci fications may be within the left ovary and could represent an exophytic fibroid, nonobstructing infer ior right and left nephrolithiasis, postoperative and remote traumatic changes of lower thoracic and lumbar spine as described. She had additional findings on her CTA with no pulmonary embolus, bronchi tis, and significant atherosclerosis of the thoracic aorta. She had a pelvic ultrasound officially r ead as enlarged lobulated uterus containing multiple calcified ad noncalcified fibroids, exophytic ca lcified fibroid along the left lateral margins correlate with a left adnexal calcification. Detailed both ovaries are identified and appeared to be without ovarian based solid or cystic mass . Assessment And Plan: This 70-year-old female comes in with abdominal pain of uncertain etiology. 1.IV fluid hydration. 2.N.p.o. status. 3.Serial abdominal exams. 4.I do not find if the patient has any evidence of acute or surgical abdomen at this time. As such, I recommend nonoperative management and we will likely advance her diet beginning tomorrow with hector r liquid diet should she continue to improve. Continue medical management. Thank you for this interesting consult. ANNMARIE/TONY Voice ID: [id number] Report ID: [id number]
[2020-06-24] MEDS ORDERED: PNEUMOCOCCAL VACCINE 0.5 ML IMVAC ONE (16:00)
[2020-06-24] MEDS ORDERED: INFLUENZA VACCINE (for 3y+) 0.5 ML DOSE IMVAC ONE (16:00)
[2020-06-24] MEDS: METRONIDAZOLE 500mg IVPB 500 MG/100 ML BAG IV SCH ×2 (16:21→23:49)
[2020-06-24] MEDS ORDERED: KCL 20 MEQ/100 mL IVPB 20 MEQ/100 ML BAG IV SCH (18:00)
[2020-06-25 04:03] LABS: Absolute Lymphocytes (CBC) 0.5 K/uL (0.7-4.9); Basophils % 0.3 % (0-1.3); Hematocrit 38.5 % (36.0-45.0); Lymphocytes % 5.1 % (15.3-44.8); MPV 8.4 fL (7.6-11.3); RBC Red Blood Cell Count 4.53 M/uL (3.86-4.86)
[2020-06-25 04:31] LABS: ALT/SGPT 27 U/L (12-78); AST/SGOT 22 U/L (15-37); Albumin 3.1 g/dL (3.4-5.0); Alkaline Phosphatase 69 U/L (45-117); BUN Blood Urea Nitrogen 8 mg/dL (7-18); Bicarbonate 23 mmol/L (21-32); Bilirubin Total 0.8 mg/dL (0.2-1.0); Glucose Level 77 mg/dL (74-106); Lipase 113 U/L (73-393); Magnesium 2.1 mg/dL (1.8-2.4); Phosphorus 1.9 mg/dL (2.5-4.9); Potassium 3.6 mmol/L (3.5-5.1); Protein, Total 6.2 g/dL (6.4-8.2); Sodium Level 143 mmol/L (136-145)
[2020-06-25 05:10] LABS: Blood Morphology Comment NOT SEEN (NOT SEEN); Platelet Estimate ADEQ
[2020-06-25] MEDS: Levofloxacin 750mg IV 750 MG/150 ML BAG IV SCH (06:03)
[2020-06-25] MEDS: NA CHLORIDE 0.9% 1,000 ML IV SCH (06:03)
[2020-06-25] MEDS: NICOTINE 21 MG/PAT TD SCH (07:40)
[2020-06-25] MEDS: METRONIDAZOLE 500mg IVPB 500 MG/100 ML BAG IV SCH ×2 (07:41→16:05)
--- NOTE | 2020-06-25 08:26 | P.PN ---
Subjective Date of Service: 06/25/20 Chief Complaint: Abdominal pain, possible ileus / partial obstruction vs internal hernia Subjective: Improving (passing gas, pain has almost resolved. no nausea, or emesis) Physical Examination - Vital Signs Temperature: 97.5 F Blood Pressure: 127/71 Pulse: 77 Respirations: 18 Pulse Ox (%): 98 - Physical Exam General: Alert, In no apparent distress, Cooperative HEENT: Mucous membr. moist/pink Respiratory: Normal air movement Gastrointestinal: Soft and benign, Non-distended, No ascites, No tenderness, No rebound Assessment And Plan - Current Problems (Diagnosis) (1) Partial bowel obstruction Current Visit: Yes Status: Acute Plan: - Serial exams - Start clear liquid diet - ambulate with assist - continue medical management Physician Review Additional Text: Abdominal pain, concern for ileus vs partial obstruction vs internal hernia vs enteritis CAD s/p stent x3 Sickle cell anemia Asthma Nicotine dependence Possible UTI (cystitis) -admit to med/surg, patient is not septic on admission -NPO, IV fluids, morphine for pain control -Levaquin and Flagyl to cover for possible enteritis -general surgery consulted -serial abdominal exams -repeat labs in a.m. -unclear cause of elevated lipase, possible mild acute pancreatitis without radiographic evidence UA positive for leuk esterase, bacteria, sent for culture. Patient with dysuria x1 week. Should be covered by Levaquin Dispo: Anticipate dc home in ~48hrs
--- NOTE | 2020-06-25 15:26 | P.PN ---
Subjective Date of Service: 06/25/20 Chief Complaint: Abdominal pain, possible ileus / partial obstruction vs internal hernia Subjective: Improving (Feeling much better, reports no abdominal pain, no nausea/vomiting, reports she is thirsty. Passing flatus, no bowel moved) Review of Systems 10-point ROS is otherwise unremarkable Physical Examination - Vital Signs Temperature: 98.5 F Blood Pressure: 115/59 Pulse: 82 Respirations: 18 Pulse Ox (%): 97 - Physical Exam General: Alert, In no apparent distress HEENT: Sclerae nonicteric Respiratory: Clear to auscultation bilaterally Cardiovascular: No edema, Regular rate/rhythm Gastrointestinal: Soft and benign, Non-distended, No tenderness Musculoskeletal: No tenderness Integumentary: No rashes Neurological: Normal speech, Normal affect Assessment & Plan Physician Review Additional Text: Abdominal pain, concern for ileus vs partial obstruction vs internal hernia vs enteritis CAD s/p stent x3 Sickle cell anemia Asthma Nicotine dependence Possible UTI (cystitis) -abdominal pain significantly improved -advance to clear liquid diet, can likely further advance for dinner. If tolerating will discontinue IV fluids -Levaquin and Flagyl to cover for possible enteritis -general surgery consulted - appreciate assistance -serial abdominal exams -unclear cause of elevated lipase, possible mild acute pancreatitis without radiographic evidence, resolving -UA positive for leuk esterase, bacteria, sent for culture: No growth. Patient with dysuria x1 week. Should be covered by Levaquin Dispo: Anticipate dc home in 24-48hrs Time Spent Managing Pts Care (In Minutes): 35
[2020-06-25] MEDS ORDERED: MORPHINE 2 MG/ML SYR IV PRN (23:10)
[2020-06-25] MEDS ORDERED: FAMOTIDINE 20 MG/2 ML VIAL IV PRN (23:10)
[2020-06-26] MEDS: METRONIDAZOLE 500mg IVPB 500 MG/100 ML BAG IV SCH ×2 (00:30→08:07)
[2020-06-26] MEDS: Levofloxacin 750mg IV 750 MG/150 ML BAG IV SCH (05:41)
[2020-06-26 06:55] LABS: BUN Blood Urea Nitrogen 8 mg/dL (7-18); Bicarbonate 26 mmol/L (21-32); Glucose Level 96 mg/dL (74-106); Magnesium 2.1 mg/dL (1.8-2.4); Phosphorus 2.8 mg/dL (2.5-4.9); Potassium 3.9 mmol/L (3.5-5.1); Sodium Level 143 mmol/L (136-145); Troponin I < 0.02 ng/mL (0.0-0.045)
[2020-06-26] MEDS ORDERED: PANTOPRAZOLE 40MG TABLET PO SCH (07:30)
[2020-06-26] MEDS: NICOTINE 21 MG/PAT TD SCH (08:19)
[2020-06-26] MEDS ORDERED: POTASSIUM CL SA 10 MEQ TAB PO ONE (09:00)
[2020-06-26 09:20] VITALS: O2SAT 98
[2020-06-26 12:11] VITALS: BP 140/76; TEMP 98.1
--- NOTE | 2020-06-26 13:48 | P.DS ---
Admission Date: 06/24/20 Discharge Date: 06/26/20 Disposition: ROUTINE DISCHARGE Discharge Condition: GOOD Reason for Admission: Abdominal pain, possible ileus / partial obstruction vs internal hernia Consultations: General Surgery - Dr. Schaeffer Procedures: CXR(06/24): Diffuse interstitial opacification. No focal mass or consolidation. In the acute clinical setting, a bronchitis/viral infiltrate process would be most likely. Pattern is not a typical COVID-[address] Abd/Pelvis (06/24): 1. Swirling of the inferior mesenteric vessels concerning for possible internal hernia. There is mild dilatation of a few small bowel loops in the right lower quadrant with no transition point which may be due to ileus versus enteritis versus incomplete obstruction. 2. Thickening and enhancement of the pylorus may represent ulcerative disease. No perforation. 3. Constipation. 4. Numerous heterogeneous masses within the pelvis, some with dystrophic calcifications, compatible with degenerating fibroids. A left adnexal cluster of calcifications may be within the left ovary or could represent an exophytic fibroid. 5. Nonobstructing inferior right and left nephrolithiasis. 6. Postoperative and remote traumatic changes of the lower thoracic and lumbar spine as detailed above. CTA Chest (06/24): 1. No pulmonary embolism. 2. Bronchitis. 3. Significant atherosclerosis of the thoracic aorta. Pelvis U/S (06/24): Enlarged lobulated uterus containing multiple calcified and noncalcified fibroids. Exophytic calcified fibroid along the left lateral margin is the correlate to the left adnexal calcifications detailed on the CT study. Both ovaries are identifiable and appear to be without an ovarian based solid or cystic mass. Problem List Abdominal pain, (concern for ileus vs partial obstruction vs enteritis vs gastric ulcer) CAD s/p stent x3 Sickle cell anemia Asthma Nicotine dependence Brief History of Present Illness: 70yo female, PMH: CAD s/p stentx3, asthma, sickle cell anemia, tobacco use who presents to ED with severe abdominal pain. She states pain began last night after eating dinner. She felt dizzy, almost falling, and laid down. Once she laid down, she felt severe upper abdominal pain and some pain in her lower back. She also reports some associated difficulty breathing. She denies nausea/vomiting. Her last BM was ~3-4 days ago, she typically has a BM every other day. Also endorses 1 week of dysuria. In the ED vitals were stable/WNL, labs revealed no leukocytosis, CMP was normal, negative troponin, lactate: 1.1, elevated lipase: 452. UA: 3+ leukocyte esterase, 20-50, bacteria, 05-10 WBCs [address]A & CT abdomen/pelvis: Negative for PE, no consolidation or edema, no pleural fluid her pneumothorax. Swelling of the inferior mesenteric vessels concerning for possible internal hernia. Mild dilatation of a few small bowel loops which may be due to ileus versus enteritis versus incomplete obstruction. Thickening and enhancement of pylorus may represent ulcerative disease. Hospital Course: Patient was initially kept NPO and given IVF. General surgery wasn consulted. She had improvement in pain, was passing flatus, so her diet was slowly advance. She was able to tolerate full liquid / soft diet. She reported a small bowel movement on day of discharge. She was feeling much better and ready to be discharged home. She still had some mild tenderness to palpation in the epigastric region which improved with protonix. She may have some gastritis / possible gastric ulcer given her location of pain and CT findings. She is discharged home with home health/ PT with prescriptions for Protonix 40mg BID an d 5 days of levaquin & flagyl. She was instructed to follow up with Dr. Schaeffer as an outpatient for possible EGD. Vital Signs/Physical Exam: Temp Pulse Resp BP Pulse Ox 98.1 F 81 17 140/76 99 06/26/20 12:00 06/26/20 12:00 06/26/20 12:00 06/26/20 12:00 06/26/20 12:00 General: Alert, In no apparent distress, Oriented x3 HEENT: Mucous membr. moist/pink, Sclerae nonicteric Neck: Supple Respiratory: Clear to auscultation bilaterally, Normal air movement Cardiovascular: No edema, Regular rate/rhythm, Normal S1 S2 Gastrointestinal: Soft and benign, Non-distended, Tenderness (mild in epigastric region) Integumentary: No rashes Neurological: Normal speech, Normal affect Laboratory Data at Discharge: WBC 10.5 K/uL (4.3-10.9) D 06/25/20 03:26 Hgb 13.1 g/dL (12.0-15.0) 06/25/20 03:26 Hct 38.5 % (36.0-45.0) 06/25/20 03:26 Plt Count 224 K/uL (152-406) 06/25/20 03:26 PT 11.8 SECONDS (9.5-12.5) 06/25/20 03:26 INR 1.00 06/25/20 03:26 Sodium 143 mmol/L (136-145) 06/26/20 06:14 Potassium 3.9 mmol/L (3.5-5.1) 06/26/20 06:14 BUN 8 mg/dL (7-18) 06/26/20 06:14 Creatinine 0.81 mg/dL (0.55-1.3) 06/26/20 06:14 Glucose 96 mg/dL (74-106) 06/26/20 06:14 Phosphorus 2.8 mg/dL (2.5-4.9) 06/26/20 06:14 Magnesium 2.1 mg/dL (1.8-2.4) 06/26/20 06:14 Total Bilirubin 0.8 mg/dL (0.2-1.0) 06/25/20 03:26 AST 22 U/L (15-37) 06/25/20 03:26 ALT 27 U/L (12-78) 06/25/20 03:26 Alkaline Phosphatase 69 U/L (45-117) 06/25/20 03:26 Troponin I < 0.02 ng/mL (0.0-0.045) 06/26/20 06:14 Lipase 113 U/L (73-393) 06/25/20 03:26 Home Medications: Aspirin Chewable [Aspirin Chewable*] 81 mg PO DAILY PRN 06/24/20 Pantoprazole [Protonix Tab*] 40 mg PO BIDAC 30 Days #60 tab 06/26/20 levoFLOXacin [Levaquin] 750 mg PO DAILY 5 Days #5 tab 06/26/20 metroNIDAZOLE [Flagyl] 500 mg PO Q8H 5 Days #15 tablet 06/26/20 New Medications: metroNIDAZOLE [Flagyl] 500 mg PO Q8H 5 Days #15 tablet levoFLOXacin [Levaquin] 750 mg PO DAILY 5 Days #5 tab Pantoprazole [Protonix Tab*] 40 mg PO BIDAC 30 Days #60 tab Patient Discharge Instructions: follow up with PCP within 1 week. follow up with Dr. Schaeffer in 2-3 weeks - if stomach pain continues, may need to have an EGD (Esophagogastroduodenoscop). Follow a soft diet for the next 3-5 days, then slowly resume regular diet. Take antibiotics for 5 days as prescribed. New medication: Pantoprazole (protonix) 40mg tablet, take twice a day for acid reflux / stomach pain Diet: soft diet Activity: Ad edin Followup: Tapan Schaeffer MD [ACTIVE - CAN ADMIT] - Time spent managing pt's care (in minutes): 35
== END 2020-06-26 14:39 | disposition home health service (06) | DRG 384 ==
LOC: ER 03:06 → ERHOLD 10:34 → 2ND 13:43
PROVIDERS: ADMIT Hospitalist; ATTEND Hospitalist
DX: K25.9 Gastric ulcer, unspecified as acute or chronic, without hemorrhage or perforation (principal); K56.690 Other partial intestinal obstruction; K52.9 Noninfective gastroenteritis and colitis, unspecified; K29.70 Gastritis, unspecified, without bleeding; I10 Essential (primary) hypertension; D57.1 Sickle-cell disease without crisis; I25.10 Atherosclerotic heart disease of native coronary artery without angina pectoris; J45.909 Unspecified asthma, uncomplicated; F17.210 Nicotine dependence, cigarettes, uncomplicated; I25.2 Old myocardial infarction; Z95.5 Presence of coronary angioplasty implant and graft; Z88.0 Allergy status to penicillin; Z79.899 Other long term (current) drug therapy; Z79.02 Long term (current) use of antithrombotics/antiplatelets; Z79.82 Long term (current) use of aspirin; Z20.828 Contact with and (suspected) exposure to other viral communicable diseases; Z23 Encounter for immunization
CPT/HCPCS: 36415; 71045; 71275; 74177; 76856; 80048; 80053; 80076; 81003; 81015; 83605; 83690; 83735; 83880; 84100; 84145; 84484; 85025; 85610; 87086; 87088; 90471; 90732; 93005; 94760; 96361; 96365; 96367; 96375; 99285; J2270; J2405; J3480; J7030; Q2035; Q9967; U0003

== ENCOUNTER 2020-07-05 13:17 | Emergency (ER) | payer OTHER ==
--- OUTSIDE RECORDS SUMMARY | 2020-07-05 13:23 | XMS REPORT | Clinical Summary ---
:1950 Author Organization [facility] Address [facility] [place] [address] Care Team Providers Name Role Phone Unavailable [...] 19 yrs) 05/29/2020 Results Not on fileafter 07/05/2019 Insurance Payer Benefit Plan / Subscriber ID Effective Dates Phone Addre ss Type Group [employer] MEDICA[employer] [place] xxxxxxxxx 2018-Presen [phone] [id number] [place] [address] [place] D[employer] xxxxxxxxxxxx 2018-Prese [phone] [facility] MEDICARE OPTION MMP nt [id number] OPTIONS [address] [address] [place] [address]
--- OUTSIDE RECORDS SUMMARY | 2020-07-05 13:37 | XMS REPORT | Continuity of Care Document ---
:1950 Author Organization [facility] Information [place] Care Team Providers Name Role Phone [facility] Information Exchange Unavailable Un available Problems Problem Status Onset Classification Date Comments Sourc e Date Reported UPPER ABD PAIN Active 01/20/20 [facility] [place] Chest pain, 01/17/20 01/19/2017 Nakia haskins unspecified [address] [place] [address], [place] CHEST PAIN Active 01/17/20 [place] [id number] Maciej,[facility] Urinary tract 11/29/19 12/01/2016 Franklyn arland infection, site 17 not specified Dorsalgia, 11/29/19 12/01/2016 Diane and unspecified 17 PAIN Active 11/29/19 [place] [address] Maciej Bitten or stung by 11/07/19 11/09/2016 [facility] nonvenomous insect 17 and other nonvenomous arthropods, initial encounter FACIAL SWELLING Active 11/07/19 Eleazar rial [place] SYNCOPE Active 10/10/[address] SICK Active 10/10/[address] Discharge 04/14/20 04/17/2016 [facility] Diagnosis: 16 Medical Syncope, near Center CHEST PAIN, Active 03/11/20 [facility] HYPOTENSION 16 [place] SOB Active 03/11/20 [place] [address] [facility] 03/05/20 03/08/2016 [place] Diagnosis: 16 Trichomonas vaginitis Discharge 03/05/20 03/08/2016 [place] Diagnosis: Lumbago 16 Discharge 02/29/20 03/03/2016 [place] Diagnosis: 16 Bronchitis BACK PAIN Active 09/14/19 [facility] 16 [place],[facility] COPD, CHEST PAIN Active 09/03/19 16 [place] HEADACHE Active 07/15/20 15 [place] SOB/ WEAKNESS Active 07/04/[address] LOWER BACK AND LEG Active 07/04/20 H [place] PAIN [address] [place] [address] SHORTNESS OF Active 06/03/20 BREATH 15 [place] Discharge 05/18/20 05/21/2015 [facility] Diagnosis: 15 Medical Abdominal pain, Cent er acute, epigastric NAUSEA Active 05/18/20 [facility] 15 Medical Center Discharge 05/09/20 05/12/2015 [facility] Diagnosis: Chest 15 Med ical pain Center,[facility] Discharge 05/02/20 05/05/2015 [facility] Diagnosis: Vertigo 15 M edical Center Discharge 05/02/20 05/05/2015 [facility] Diagnosis: Syncope 15 M edical and collapse Center FALL Active 05/02/20 [place] [id number] Medical Center Discharge 04/11/20 04/14/2015 Diagnosis: Knee 15 [place] [facility] pain, right Discharge 04/11/20 04/14/2015 [facility]: [facility] 04/11/20 04/14/2015 Diagnosis: 15 [place] Anterolisthesis Discharge 04/11/20 04/14/2015 Diagnosis: 15 [facility] Accidental fall Discharge 03/30/20 04/02/2015 Diagnosis: Chronic 15 [place] pain in right shoulder NECK AND SHOULDER Active 03/30/20 PAIN 15 [facility] SOB/CHEST PAIN Active 03/21/[address] HYPOTENSION, CHEST Active 03/21/20 H PAIN 15 [facility] Discharge 03/11/20 03/14/2015 Diagnosis: Chest 15 [place] [facility] wall muscle strain LOWER BACK PAIN Active 03/11/20 15 [facility] Discharge 03/05/20 03/08/2015 [facility] Diagnosis: Dyspnea 15 M edical Center UPPER BACK PAIN Active 02/25/20 15 [facility] ACUTE CHEST PAIN Active 02/25/20 15 [facility] UNSTABLE ANGINA; Active 02/17/20 HYPOTENSION [place] CHEST/LEG PAIN Active 12/23/[address] OTHER Active 12/17/19 [place] [address] [facility] Center ACS Active 12/17/19 [place] [address] [facility] Asthma (disorder) Active Problem 01/22/2017 [facility] [place] [place], [facility] [place] Cardiac chest pain Active Problem 01/22/2017 [facility] (finding) [facility], [facility], [facility] [place] [facility] Hypertensive Active Problem 01/22/2017 [place] as disorder, [facility] Center, (disorder) [place], [place], [facility] [place] Hyperlipidemia Active Problem 01/22/2017 [facility] [place] (disorder) Medical Center,[facility],M H [place]ie, M Tabby Kraig t Myocardial Active Problem 01/22/2017 [facility] infarction Medical (disorder) Center, [place],M H [place], M Tabby Kraig t Smoking cessation Active Problem 01/22/2017 [facility] advice Medical (regime/therapy) Jose ter,[facility],M H [place], M Tabby Edmondsya t Stented coronary Resolved Problem 01/22/2017 [facility] artery (finding) Med ical Center,[facility],M H [place]ie Substance abuse Active Problem 01/22/2017 [facility] (disorder) [facility] Tissue perfusion Active Problem 01/22/2017 [facility] measure [facility] (observable Center,M H entity) [place],M H [place], M Tabby Kraig jb Heart disease Active Problem 12/28/2013 [place] ([place] [facility] CHEST PAIN NOS Active [place] [facility] INTERMED CORONARY Active [facility] ANGINA DECUBITUS Active [facility] HYPOTENSION NOS Active [facility] SYNCOPE AND Active [facility] COLLAPSE [facility] Medications Medication Details Route Status Patient Ordering Order Source Instructions Provider Date Famotidine 20 mg, Route: Inactive 01/19[facility] IVP, ONCE, 2016 [facility] Dosing Weight 45.455, kg, Priority: STAT, Start date: 01/19/17 13:00:00 CDT, Stop date: 01/19/17 13:00:00 CDT GI cocktail 30 mL, Route: Inactive [facility] PO, Dosing 2016 [facility] Weight 45.455, kg, ONCE, STAT, Start date: 01/19/17 13:00:00 CDT, Stop date: 01/19/17 13:00:00 CDT Ondansetron 4 mg, Route: Inactive 01/19[facility] IVP, ONCE, 2016 [facility] Dosing Weight 45.455, kg, Priority: STAT, Start date: 01/19/17 13:00:00 CDT, Stop date: 01/19/17 13:00:00 CDT Saline Flush 0.9% Notes: (Same Inactive 01/19[facility] as: BD 2016 [facility] Posiflush) Sodium Chloride 1,000 mL, Inactive 0.154 MEQ/ML 2,000 ml/hr, 2016 [facility] Injectable Infuse Over: Solution 30 minutes, Route: IV, ONCE, Priority: STAT, Dosing Weight 45.455 kg, Start date: 01/19/17 13:00:00 CDT, Duration: 1 doses or times, Stop date: 01/19/17 13:00:00 CDT clopidogrel Notes: (Same No Longer [place] As: Plavix) Active 2017 [facility] atorvastatin Notes: Same as Inactive [facility] Lipitor 2017 [facility] aspirin 81 mg 81 mg = 1 tab, Active [place] tablet, enteric PO, Daily, # 2017 Med ical coated 90 tab, 3 Center Refill(s), other metoprolol Notes: (Same [place] tartrate as: Lopressor) 2017 Medical 12.5 mg=1/2 X Center 25 mg TAB Meclizine Notes: (Same Inactive [facility] as: Antivert) 2017 [facility] nitrofurantoin 100 mg, PO, Inactive [place] BID, # 14 cap, 2017 Medical 0 Refill(s) Center meclizine 25 mg 25 mg = 1 tab, Active [facility] oral tablet PO, TID, PRN 2017 Medical for dizziness, Center # 60 tab, 0 Refill(s) Morphine Notes: (Same Inactive [facility] as:MORPhine 2017 Medical Sulfate) Center Ondansetron Notes: (Same Inactive [place] as as: Zofran) 2017 Medical MEDICATION Center WASTE Product Size: 4 mg Product Wasted: _0__ mg Aspirin Notes: Take Inactive [facility] with food. 2017 [facility] Saline Flush 0.9% Notes: Same Inactive [facility] as: BD 2017 Medical Posiflush Center [...] Tramadol Notes: Not to Inactive exceed 2017 [place] 400mg/day. (Same As: Ultram) Albuterol 0.833 Notes: (Same Inactive MG/ML / as: Duoneb) 2017 [place] Ipratropium [place] 0.167 MG/ML Inhalant Solution [DuoNeb] Saline Flush 0.9% Notes: Inactive preservative 2017 [place] free. Mupirocin 0.02 1 appl, TOP, Active MG/MG Topical TID, PRN as 2017 [place] Ointment needed, Apply [Bactroban] to affected area(s), X 14 day, # 60 gm, 0 Refill(s) Saline Flush 0.9% Notes: (Same Inactive as: BD 2017 [place] Posiflush) atorvastatin Notes: Same as Inactive [facility] Lipitor [address] [place] [address] Center remove patch Notes: Remove Inactive [place] patch 12 hours 2017 Medical after Center application each day. metoprolol Notes: (Same [place] tartrate as: Lopressor) 2017 Medical 12.5 mg=1/2 X Center 50 mg TAB heparin sodium, Notes: porcine Inactive [place] porcine 2500 heparin 2017 [facility] UNT/ML Injectable Center Solution Protonix Notes: Tablet Inactive [place] should not be 2017 [facility] chewed or Center crushed. (Same as: Protonix) Symbicort 160/4.5 Notes: (Same Inactive [place] inhalation aerosol as: Symbicort) 2017 Medical with adapter WASTE: Center Aerosol - Return to Pharmacy Aspirin 325 MG Notes: Take Inactive [place] Oral Tablet with food. 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, Duration: 30 day, Stop date: 11/09/16 17:00:00 CDT potassium chloride Notes: (Same Inactive [facility] as: K-Dur 20) 2017 Medical "Do Not Crush" Center With food and full glass of water Nitroglycerin 0.4 Notes: (Same No Longer [facility] MG Sublingual as:Nitroquick, Active 2017 Med ical [...] as: Tylenol) Docusate Notes: (Same No Longer [facility] as: Colace) Active 2017 Medical (Do Not Crush) Center Morphine Notes: (Same No Longer [facility] as:MORPhine Active 2016 Medical Sulfate) Center Acetaminophen 325 Notes: (Same No Longer [facility] MG / Hydrocodone as: [place] Active 2016 Medic al Bitartrate 5 MG 325/5) Do not C enter Oral Tablet exceed 4gm/day of acetaminophen. Ondansetron Notes: (Same [place] Longer [place] as: Zofran) Active 2017 Medical MEDICATION Center WASTE Product Size: 4 mg Product Wasted: 0 mg Dilaudid Notes: Same Inactive [facility] as: Dilaudid 2017 Medical [place] potassium chloride Notes: (Same Inactive [facility] as: K-Dur 20) 2017 Medical "Do Not Crush" Center With food and full glass of water Aspirin Notes: Take Inactive [facility] with food. 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 atorvastatin Notes: (Same Inactive as: Lipitor) 2015 [place] 200 ACTUAT Notes: Same Inactive Albuterol 0.09 as: Ventolin 2015 [place] MG/ACTUAT Metered HFA WASTE: Dose Inhaler Aerosol - [ProAir HFA] Return to Pharmacy Protonix Notes: Tablet Inactive should not be 2015 [place] chewed or crushed. (Same as: Protonix) Symbicort 160/4.5 Notes: (Same Inactive inhalation aerosol as: Symbicort) 2015 [place] with adapter WASTE: Aerosol - Return to Pharmacy Aspirin 81 MG Notes: Take Inactive Chewable Tablet with food. 2016 [place] and Omeprazole 20 mg, Route: Inactive PO, Drug form: 2015 [place] ECTAB, BID, Dosing Weight 50, kg, Start date: 03/12/16 9:00:00 CDT, Duration: 30 day, Stop date: 04/10/16 17:00:00 CDT metoprolol Notes: (Same Inactive tartrate as: Lopressor) 2015 [place] clopidogrel Notes: (Same Inactive As: Plavix) 2015 [place] Aspirin 325 MG Notes: Take Inactive Oral Tablet with food. 2015 [place] tramadol Notes: Not to Inactive hydrochloride 50 exceed 2015 [place] MG Oral Tablet 400mg/day. (Same As: Ultram) Naprosyn Notes: (Same Inactive as: Naprosyn) 2015 [place] Take with food. Lidocaine Notes: (Same Inactive Hydrochloride 0.05 as: Lidoderm) 2015 [place] MG/MG Transdermal Patch [Lidoderm] Aspirin Notes: Take Inactive with food. 2015 [place] Nitroglycerin Notes: (Same No Longer as:Nitroquick, Active 2015 [place] Nitrostat) "Do Not Crush" Sublingual tablet Saline Flush 0.9% Notes: (Same No Longer as: BD Active 2015 [place] Posiflush) Saline Flush 0.9% Notes: (Same No Longer as: BD Active 2015 [place] Posiflush) Sodium Chloride 1,000 mL, Inactive 0.154 [...] 0.9% Notes: (Same Inactive as: BD 2015 [place] Posiflush) Nitroglycerin Notes: (Same Inactive as:Nitroquick, 2015 [place] Nitrostat) "Do Not Crush" Sublingual tablet tramadol [...] Zofran Notes: (Same Inactive as: Zofran 2015 [place] ODT) Acetaminophen 325 Notes: (Same Inactive MG / Hydrocodone as: [place] 2016 [place] and Bitartrate 5 MG 325/5) Do not Oral Tablet [[place] exceed 4gm/day 5/325] of acetaminophen. Flagyl Notes: (Same Inactive as: Flagyl) 2015 [place] Take with food/ avoid alcohol predniSONE 20 [...] (Same Inactive MG/ML / as: Duoneb) 2015 [place] Ipratropium [place] 0.167 MG/ML Inhalant Solution [DuoNeb] Symbicort 160/4.5 2 puff, Active inhalation aerosol INHALATION, 2015 [place] with adapter BID, # 1 ea, 1 Refill(s) predniSONE 10 mg See Special Active oral tablet Instructions, 2015 [facility] PO, Daily, 6 day regimen: Day 1 [...] 1 Active Oral Tablet tab, PO, 2015 [facility] Daily, 0 Refill(s) atorvastatin Notes: (Same No Longer as: Lipitor) Active 2015 [facility] Solu-Medrol Notes: (Same Inactive as:Solu-MEDROL 2015 [facility] , A-Methapred) 24 HR Metoprolol Notes: (Same No Longer Tartrate 25 MG as: Toprol XL) Active 2015 [place] [facility] Extended Release Do Not Crush Tablet [Toprol] clopidogrel Notes: (Same No Longer As: Plavix) Active 2015 [facility] Protonix Notes: Tablet No Longer should not be Active 2015 [facility] chewed or crushed. (Same as: Protonix) Aspirin 325 MG Notes: Take No Longer Oral Tablet with food. Active 2015 [facility] Omeprazole 20 mg, Route: Inactive PO, Drug form: 2015 [facility] ECTAB, BID, Dosing Weight 50.92, kg, Start date: 09/04/15 9:00:00, Duration: 30 day, Stop date: 10/03/15 17:00:00 Acetaminophen 300 Notes: Do not No Longer MG / Codeine exceed 4gm/day Active 2015 [place] Phosphate 30 MG of Oral Tablet acetaminophen. [Tylenol with (Same as: Codeine #3] Tylenol with Codeine # 3) NS 1,000 mL 1,000 mL, No Longer Rate: 75 Active 2015 [facility] ml/hr, Infuse over: 13.3 hr, Route: IV, Dosing Weight 50.92 kg, Total Volume: 1,000, Start date: 09/04/15 8:03:00, Duration: 30 day, Stop date: 10/04/15 8:02:00 Albuterol 0.833 Notes: (Same No Longer H MG/ML / as: Duoneb) Active 2015 [facility] Ipratropium [place] 0.167 MG/ML Inhalant Solution methylPREDNISolone Notes: (Same No Longer [place]ium SUCCinate as:Solu-MEDROL Active 2015 [facility] , A-Methapred) methylPREDNISolone Notes: (Same Inactive [place] SUCCinate as:Solu-MEDROL 2015 [facility] , A-Methapred) Albuterol 0.833 Notes: (Same Inactive MG/ML / as: Duoneb) 2015 [facility] Ipratropium [place] 0.167 MG/ML Inhalant Solution Saline Flush 0.9% Notes: (Same No Longer as: BD Active 2015 [facility] Posiflush) atorvastatin Notes: (Same Inactive as: Lipitor) 2014 [facility] metoprolol 12.5 mg = 0.5 Active tartrate 25 mg tab, PO, BID, 2014 [place] oral tablet # 60 tab, 0 Refill(s) clopidogrel 75 mg 75 mg = 1 tab, Active oral tablet PO, Daily, # [address] [facility] [address] 30 tab, 1 Refill(s) atorvastatin 40 mg 80 mg = 2 tab, Active oral tablet PO, Bedtime, # 2015 [facility] 60 tab, 1 Refill(s) 200 ACTUAT 90 microgram = Active Albuterol 0.09 1 puff, 2014 [facility] MG/ACTUAT Metered INHALATION, Dose Inhaler Q4H, PRN for wheezing, # 1 ea, 0 Refill(s) omeprazole 20 mg 20 mg = 1 tab, Active oral enteric PO, BID, # 60 2014 [facility] coated tablet tab, 1 Refill(s) metoprolol Notes: (Same Inactive tartrate as: Lopressor) 2014 [facility] t clopidogrel Notes: (Same Inactive As: Plavix) 2014 [facility] Protonix Notes: Tablet Inactive should not be 2014 [facility] chewed or crushed. (Same as: Protonix) Albuterol 0.833 Notes: (Same No Longer H MG/ML / as: Duoneb) Active 2014 [facility] Ipratropium [place] 0.167 MG/ML Inhalant Solution Sodium Chloride 250 mL, Route: No Longer 0.9% IV IVPB, Start Active 2014 [facility] date: 07/15/15 21:26:00, Duration: 30 day, Stop date: 08/14/15 21:25:00, PRN Line Flush BD Normal Saline Notes: (Same No Longer Flush as: BD Active 2014 [facility] Posiflush) Nitroglycerin Notes: (Same No Longer as:Nitroquick, Active 2014 [facility] Nitrostat) "Do Not Crush" Sublingual tablet Ibuprofen Notes: (Same No Longer as: Motrin) Active 2014 [facility] "Do Not Crush" Give with food. Baclofen Notes: (Same No Longer As: Lioresal) Active 2014 [facility] 200 ACTUAT Notes: No Longer Albuterol 0.09 Albuterol 90 Active [facility]/ACTUAT Metered microgram/inh Dose Inhaler 8gm HFA Same as: Ventolin Proventil Sodium Chloride 1,000 mL, No Longer 0.0769 MEQ/ML Rate: 125 Active 2014 [place] Injectable ml/hr, Infuse Solution over: 8 hr, Route: IV, Dosing Weight 50 kg, Total Volume: 1,000, Start date: 07/15/15 20:39:00, Duration: 30 day, Stop date: 08/14/15 20:38:00 Saline Flush 0.9% Notes: (Same Inactive as: BD 2014 [facility] Posiflush) Aspirin 324 mg, Route: Inactive PO, ONCE, 2014 [facility] Dosing Weight 50, kg, Priority: STAT, Start date: 07/15/15 14:15:00, Stop date: 07/15/15 14:15:00 Saline Flush 0.9% Notes: (Same Inactive as: BD 2014 [facility] Posiflush) Sodium Chloride 500 mL, 500 Inactive [...] [place] oral tablet PO, TID, PRN 2015 [facility] for dizziness, Center X 20 day, # 60 tab, 0 Refill(s) Acetaminophen Notes: (Same Inactive [place] as: Tylenol) 2015 [facility] Antivert Notes: (Same Inactive [facility] as: Antivert) [address] [place] [address] baclofen 10 mg 10 mg = 1 tab, Active oral tablet PO, TID, PRN [address] [facility] [address] Spasms, # 21 tab, 0 Refill(s) Acetaminophen 300 1 tab, PO, Active MG / Codeine Q6H, PRN pain, 2015 [place] Phosphate 60 MG X 5 day, # 20 Oral Tablet tab, 0 [Tylenol with Refill(s) Codeine #4] Acetaminophen 325 Notes: Same as Inactive MG / Hydrocodone [place] [address] [facility] [address] Bitartrate 7.5 MG 325-7.5mg Do Oral Tablet [[place] not exceed 7.5/325] 4gm/day of acetaminophen. ibuprofen 800 mg Special Active oral tablet Instructions: 2014 [facility] est Take with food Ibuprofen 400 MG Notes: (Same Inactive H Oral Tablet as: Motrin) 2014 [facility] "Do Not Crush" Give with food. cyclobenzaprine Notes: (Same Inactive As: Flexeril) 2014 [facility] Readi-Cat 2 Notes: Same as No Longer Readi-Cat 2 Active 2014 [facility] lactulose Notes: (Same No Longer as:Chronulac) Active 2014 [facility] atorvastatin Notes: (Same No Longer As: Lipitor) Active 2014 [facility] Motrin Notes: (Same No Longer as: Motrin) Active 2014 [facility] "Do Not Crush" Take with food. Omeprazole 20 mg, Route: Inactive PO, Drug form: 2014 [facility] ECTAB, BID, Dosing Weight 53, kg, Start [...] tartrate 25 mg tab, PO, BID, [facility] # [facility] tab, 0 Refill(s) clopidogrel 75 mg 75 mg = 1 tab, Active oral tablet PO, Daily, # [address] [facility] [address] 30 tab, 0 Refill(s) omeprazole 20 mg 20 mg = 1 tab, Active oral enteric PO, BID, # 60 2014 [facility] coated tablet tab, 0 Refill(s) atorvastatin 40 mg 80 mg = 2 tab, Active oral tablet PO, Bedtime, # 2014 [facility] 90 tab, 0 Refill(s) 200 ACTUAT 1 puff, Active Albuterol 0.09 INHALATION, 2014 [facility] MG/ACTUAT Metered Q4H, PRN for Dose Inhaler wheezing, # 9 gm, 0 Refill(s) Ondansetron Notes: (Same No Longer as: Zofran) Active 2014 MEDICATION [place] Product Size: 4 mg Product Wasted: ___ mg Docusate Notes: (Same No Longer as: Colace) Active 2014 (Do Not Crush) Acetaminophen Notes: Do not No Longer exceed 4 Active 2014 [facility] gm/day. (Same as: Tylenol) Budesonide 0.25 Notes: (Same No Longer H MG/ML Inhalant As: Pulmicort) Active 2014 Solution [Pulmicort] Albuterol 0.833 Notes: (Same No Longer H MG/ML / as: Duoneb) Active 2014 Ipratropium [place] 0.167 MG/ML Inhalant Solution [DuoNeb] Potassium Chloride Notes: (Same Inactive 1.33 MEQ/ML Oral as: Potassium 2015 [place] Solution Chloride) Sodium Chloride 1,000 mL, Inactive 0.154 MEQ/ML 1,000 ml/hr, 2014 [facility] Injectable Infuse Over: 1 Solution hr, Route: IV, ONCE, Priority: STAT, Dosing Weight 50 kg, Start date: 03/21/15 17:23:00, Duration: 1 doses or times, Stop date: 03/21/15 17:23:00 Sodium Chloride 1,000 mL, Inactive 0.154 MEQ/ML 1,000 ml/hr, 2014 [facility] Injectable Infuse Over: 1 Solution hr, Route: IV, 1,000, Drug form: INJ, ONCE, Priority: STAT, Dosing Weight 50 kg, Start date: 03/21/15 16:12:00, Duration: 1 doses or times, Stop date: 03/21/15 16:12:00 Ondansetron Notes: (Same Inactive as: Zofran) 2014 [facility] MEDICATION WASTE Product Size: 4 mg Product Wasted: ___ mg Morphine Notes: (Same Inactive as:MORPhine 2014 [facility] Sulfate) Aspirin Notes: Take Inactive with food. 2014 Saline Flush 0.9% Notes: (Same No Longer as: BD Active 2014 [facility] Posiflush) tramadol 50 mg = 1 tab, No Longer hydrochloride 50 PO, Q4H, PRN Active 2014 [facility] MG Oral Tablet pain, # 20 [Ultram] tab, 0 Refill(s) Aspirin Notes: Take Inactive with food. 2014 [facility] Morphine Notes: (Same Inactive as:MORPhine 2014 [facility] Sulfate) Ondansetron Notes: (Same Inactive as: Zofran) 2014 [facility] MEDICATION WASTE Product Size: 4 mg Product Wasted: ___ mg Saline Flush 0.9% Notes: (Same Inactive as: BD 2014 [facility] Posiflush) Famotidine 20 MG 20 mg, 1 tab, Inactive [place] Oral Tablet Route: PO, 2015 Medical [Pepcid] BID, Dosing Center Weight 50, kg, Start date: 03/05/15 9:00:00, Duration: 30 day, Stop date: 04/03/15 17:00:00 MDI Inhaler Spacer Special Active [place] Instructions: 2015 Medical Use as Center directed 200 ACTUAT 1 puff, Active [facility] Albuterol 0.09 INHALATION, 2014 Medic al MG/ACTUAT Metered Q4H, PRN for C enter Dose Inhaler wheezing, # 9 gm, 0 Refill(s) Iohexol Notes: (same Inactive [facility] as:Omnipaque [facility] Medical 350). [place] Famotidine 20 MG 20 mg, 1 tab, Inactive [facility] Oral Tablet Route: PO, 2015 [facility] [Pepcid] ONCE, Dosing [place] Weight 50, kg, Start date: 03/05/15 2:18:00, Stop date: 03/05/15 2:18:00 GI cocktail 30 mL, Route: Inactive [place] PO, Dosing 2014 [facility] Weight 50, kg, Center ONCE, STAT, Start date: 03/05/15 2:16:00, Stop date: 03/05/15 2:16:00 Aspirin Notes: Take Inactive [place] with food. 2014 [facility] remove patch Notes: Remove No Longer old patch Active 2014 [facility] before application of new patch. Plavix Notes: (Same Inactive As: Plavix) 2014 [facility] Omeprazole 20 mg, Route: No Longer PO, Drug form: Active 2014 [facility] ECTAB, BID, Dosing Weight 50, kg, Start date: 02/25/15 9:00:00, Duration: 30 day, Stop date: 03/26/15 17:00:00 Nicoderm C-Q Notes: (Same Inactive as: Habitrol) 2014 [facility] "Remove old patch before application of new patch" Aspirin Notes: Take No Longer with food. Active 2014 [facility] 24 HR Nicotine = 1 patch, Active 0.875 MG/HR TOP, Daily, X 2014 [facility] est Transdermal Patch 14 day, # 14 [Nicoderm C-Q] patch, 0 Refill(s) atorvastatin 20 mg 40 mg = 2 tab, Active oral tablet PO, Bedtime, # 2014 [place] 60 tab, 0 Refill(s) omeprazole 20 mg 20 mg = 1 tab, Active oral enteric PO, BID, # 30 2014 [facility] coated tablet tab, 0 Refill(s) metoprolol 12.5 [...] No Longer Flush as: BD Active 2014 [facility] Posiflush) potassium chloride Notes: Infuse Inactive at a rate of 2014 10 mEq/hr. (Same as: KCL) metoprolol Notes: (Same No Longer tartrate as: Lopressor) Active 2014 [facility] cyclobenzaprine Notes: (Same No Longer 02/25/ H As: Flexeril) Active 2014 [facility] Notes: (Same No Longer as:MORPhine Active 2014 [facility] Sulfate) Ondansetron Notes: (Same No Longer as: Zofran) Active 2014 MEDICATION WASTE Product Size: 4 mg Product Wasted: ___ mg Acetaminophen Notes: Do not No Longer exceed 4 Active 2014 [facility] gm/day. (Same as: Tylenol) Aspirin Notes: Take Inactive with food. 2014 potassium chloride 40 mEq, Route: Inactive 02/24 PO, Drug form: 2014 [facility] ERTAB, ONCE, Dosing Weight 50, kg, Priority: STAT, Start date: 02/24/15 14:49:00, Stop date: 02/24/15 14:49:00 Morphine Notes: (Same Inactive as:MORPhine 2014 [facility] Sulfate) remove patch Notes: Remove Inactive old patch 2014 [facility] before application of new patch. Plavix Notes: (Same Inactive As: Plavix) 2014 [facility] atorvastatin Notes: (Same No Longer As: Lipitor) Active 2014 [facility] Pravastatin Notes: (Same Inactive as: Pravachol) 2014 [facility] Protonix Notes: Tablet No Longer should not be Active 2014 [facility] chewed or crushed. (Same as: Protonix) NS 1,000 mL 1,000 mL, No Longer Rate: 100 Active 2014 [facility] ml/hr, Infuse over: 10 hr, Route: IV, Dosing Weight 51.051 kg, Total Volume: 1,000, Start date: 02/17/15 16:51:00, Duration: 30 day, Stop date: 03/19/15 16:50:00 Sodium Chloride IV, 0 ml/hr, Inactive 0.9% IV ONCE, Start 2014 [facility] date: 02/17/15 16:45:00, 500 ml metoprolol 12.5 mg = 0.5 Active tartrate 25 mg tab, PO, BID, 2014 [facility] oral tablet 0 Refill(s) naproxen 500 mg 500 mg = 1 Inactive oral tablet tab, PO, BID, 2014 [facility] PRN Pain, # 30 tab, 0 Refill(s) Aspirin Low Dose 0 Refill(s) Inactive 81 mg oral tablet 2014 [facility] est cyclobenzaprine 10 10 mg = 1 tab, Active mg oral tablet PO, TID, PRN 2014 [place] for spasms, # 30 tab, 0 Refill(s) atorvastatin 20 mg 20 mg = 1 tab, Inactive 02/17 oral tablet PO, Bedtime, # 2015 [facility] 30 tab, 0 Refill(s) omeprazole 20 mg 20 mg = 1 tab, Active oral enteric PO, BID, # 30 2014 [facility] coated tablet tab, 0 Refill(s) 24 HR Nicotine = 1 patch, Active 0.875 MG/HR TOP, Daily, X 2015 [facility] est Transdermal Patch 14 day, # 14 [Nicoderm C-Q] patch, 0 Refill(s) atorvastatin 20 mg 40 mg = 2 tab, Active oral tablet PO, Bedtime, # 2015 [facility] 60 tab, 0 Refill(s) Nicotine Notes: (Same No Longer as: Habitrol) Active 2014 [facility] "Remove old patch before application of new patch" Aspirin 81 MG Notes: Do not Inactive Enteric Coated crush or chew. 2015 [facility] Tablet (Same As: Ecotrin) Sodium Chloride 1,000 mL, Inactive 0.154 MEQ/ML Rate: 125 2014 [facility] Injectable ml/hr, Infuse Solution over: 8 hr, [...] Active Oral Tablet PO, Daily, # [address] [facility] [address] [Plavix] 30 tab, 0 Refill(s) Enoxaparin Notes: Nurse No Longer to ensure Active 2014 [facility] documentation of patient education per anticoagulatio n policy. (Same as: Lovenox) Jason Krause Notes: (Same No Longer 22/ M H As: Rosannasalon Active 2014 [facility] Nelida) "Do Not Crush" Acetaminophen Notes: Do not No Longer exceed 4 Active 2014 [facility] gm/day. (Same as: Tylenol) Diphenhydramine Notes: (Same No Longer 02/17/ H as: Benadryl) Active 2014 [facility] Dextromethorphan Notes: No Longer Hydrobromide 2 (dextromethorp Active 2014 [facility] MG/ML / hernández-guaifenesi Guaifenesin 20 n 10-100mg/5ml MG/ML Oral 10 ml oral Solution SOLN ud) (Same as: Robitussin DM) Simethicone Notes: (Same No Longer as: Mylicon) Active 2014 [facility] Bisacodyl Notes: (Same No Longer As: Dulcolax, Active 2014 [facility] Bisco-Lax) Ondansetron Notes: (Same No Longer as: Zofran) Active 2014 [facility] MEDICATION WASTE Product Size: 4 mg Product Wasted: ___ mg Nitroglycerin 0.02 Notes: 1 gram No Longer 02/17 MG/MG Topical is Active 2014 [facility] Ointment approximately 1 inch of nitroglycerin ointment (20 mg NTG per gram) (Same as:Nitro-Bid) Nitroglycerin Notes: (Same No Longer as:Nitroquick, Active 2014 [facility] Nitrostat) "Do Not Crush" Sublingual tablet Acetaminophen Notes: Do not No Longer exceed 4 Active 2014 [facility] gm/day. (Same as: Tylenol) Acetaminophen 325 Notes: (Same No Longer MG / Hydrocodone as: [place] Active 2014 [facility] Bitartrate 5 MG 325/5) Do not Oral Tablet exceed 4gm/day of acetaminophen. Morphine Notes: (Same No Longer as:MORPhine Active 2014 [facility] Sulfate) Sodium Chloride 1,000 mL, No Longer 0.154 MEQ/ML Rate: 125 Active 2014 [facility] Injectable ml/hr, Infuse Solution over: 8 hr, Route: IV, Dosing Weight 52.273 kg, Total Volume: 1,000, Start date: 02/16/15 21:06:00, Duration: 24 hr, Stop date: 02/17/15 21:05:00 normal saline 0.9% 500 mL, Rate: Inactive IV 500 mL 500 ml/hr, 2014 [facility] Infuse over: 1 hr, Route: IV, Dosing Weight 52.273 kg, Total Volume: 500, Start date: 02/16/15 20:25:00, Duration: 1 doses or times, Stop date: 02/16/15 21:24:00 Sodium Chloride 250 mL, Route: No Longer 0.9% IV IVPB, Start Active 2014 [facility] date: 02/16/15 19:52:00, Duration: 30 day, Stop date: 03/18/15 19:51:00, PRN Line Flush BD Normal Saline Notes: (Same No Longer Flush as: BD Active 2014 [facility] Posiflush) Morphine Notes: (Same Inactive as:MORPhine 2014 [facility] Sulfate) Nitroglycerin Notes: (Same Inactive as:Nitroquick, 2014 [facility] Nitrostat) "Do Not Crush" Sublingual tablet Aspirin Notes: (Do Not Inactive Crush) Do not 2014 [facility] crush or chew. Ondansetron Notes: (Same Inactive as: Zofran) 2013 [facility] Morphine Notes: (Same Inactive as:MORPhine 2013 [facility] Sulfate) Aspirin / Calcium Notes: Take Inactive H Carbonate with food. 2013 [facility] Aspirin 81 MG 81 mg = 1 tab, Active [facility] Enteric Coated PO, Daily, # 2014 [facility]i [facility]ony Tablet 90 tab, 0 Center Refill(s) metoprolol 12.5 mg = 0.5 Active [facility] s tartrate 25 mg tab, PO, BID, 2013 Med ical oral tablet # 90 tab, 0 Center Refill(s) clopidogrel 75 mg 75 mg = 1 tab, Active [facility] oral tablet PO, Daily, # 2014 Medical 90 tab, 0 Center Refill(s) atorvastatin 20 mg 20 mg = 1 tab, Active 12/[facility] oral tablet PO, Bedtime, # 2014 Medic al 90 tab, 0 Center Refill(s) metoprolol Notes: (Same [place] tartrate as: Lopressor) 2013 Medical 12.5mg=1/4 X Center 50 mg tab. Lovenox Notes: (Same Inactive [facility] as: Lovenox) 2013 [facility] Center clopidogrel Notes: (Same Inactive [place] as As: Plavix) 2013 [facility] Center Aspirin / Calcium Notes: Do not Inactive [place] Carbonate crush or chew. 2013 Medical (Same [...] Posiflush) Center Nitroglycerin Notes: (Same No Longer [facility] as:Nitroquick, Active 2013 Medical Nitrostat) "Do Center Not Crush" Sublingual tablet atorvastatin 20 mg 20 mg = 1 tab, No Longer 11/28 [place] oral tablet PO, Bedtime, # Active 2013 Medic al 30 tab, 0 Center Refill(s) clopidogrel 75 mg 75 mg = 1 tab, No Longer 12/17 [place] oral tablet PO, Daily, 0 Active 2013 [...] Stop date: 12/16/13 18:43:00 Iohexol Special Inactive [facility] Instructions: 2014 Medical Dose = Center 2.2ml/kg, [...] Aspirin / Calcium Notes: (Do Not Inactive [facility] Carbonate Crush) Do not 2013 Medical crush or chew. [place] Aspirin 81 MG 81 mg, 1 tab, No Longer [place] Chewable Tablet Route: PO, Active 2013 Medic al Drug form: [place] CHEWTAB, Daily, Dosing Weight 63.636, kg, Start [...] MG 75 mg = 1 tab, Active [facility] Oral Tablet PO, Daily, # 2014 Medical [Plavix] 30 tab, 0 Center Refill(s) atorvastatin 20 mg 20 mg = 1 tab, Active [facility] oral tablet PO, Bedtime, # 2014 Medic al 30 tab, 0 Center Refill(s) Aspirin 81 MG 81 mg = 1 tab, Active [facility] Chewable Tablet PO, Daily, # 2014 Med ical 60 tab, 0 Center Refill(s) Plavix 75 mg, 1 tab, Inactive [facility] Route: PO, 2013 Medical Drug form: Center TAB, Daily, Dosing Weight 63.636, kg, Start date: 11/08/13 9:00:00, Duration: 30 day, Stop date: 12/07/13 9:00:00(Same As: Plavix) Saline Flush 0.9% 5 ml, Route: [facility] Medical Form: INJ, [place] Dosing Weight 63.636, kg, Q12H, Start date: 11/08/13 9:00:00, Duration: 30 day, Stop date: 12/07/13 21:00:00(Same as: BD Posiflush) Lovenox 40 mg, 0.4 mL, Inactive [facility] Route: SUB-Q, 2013 Medical Drug form: [place] INJ, Q24H, Dosing Weight 63.636, kg, Start date: 11/08/13 9:00:00, Duration: 30 day, Stop date: 12/07/13 9:00:00(Same as: Lovenox) Tylenol 650 mg, 2 tab, Inactive [facility] Route: PO, 2013 Medical Drug form: [place] TAB, Q4H, Dosing Weight 63.636, kg, PRN Pain, Start date: 11/08/13 8:15:00, Duration: 30 day, Stop date: 12/08/13 8:14:00Do not exceed 4 gm/day. (Same as: Tylenol) Saline Flush 0.9% 5 ml, Route: Inactive [facility] Medical Form: INJ, Center Dosing [...] Aspirin 81 MG 324 mg, Route: Inactive [facility] Chewable Tablet PO, Drug form: 2013 Jacek [...] 2 deltoid Medical vaccine Center, Jacek Solo [facility], [facility] Results Order Name Results Value Reference Date Interpretation Comments Sandra rce Range URINE AND UA Color Ltyellow 01/19 STOOL /2016 [facility] URINE AND UA <=1.0 0.1 - 1.0 01/19 STOOL Urobilinogen mg/dL [facility] URINE AND UA Ketones Negative Negative 01/19 [...] Negative Negative 01/19 STOOL (01/19/17 2:21 PM) [facility] URINE AND UA RBC 1 0 - 2 01/19 STOOL /2016 [facility] URINE AND UA WBC 1 0 - 5 01/19 STOOL /2016 [facility] URINE AND UA Sq Epi Few /LPF Few /LPF 01/19 STOOL [facility] URINE AND UA pH 7.0 5.0 - 8.0 01/19 STOOL [facility] URINE AND UA Spec Grav 1.008 <=1.030 01/19 STOOL /2016 [facility] URINE AND UA Turbidity Clear Clear 01/19 STOOL (01/19/17 2:21 PM) [facility] CARDIAC CK MB 3.0 0.5 - 3.6 01/19 ENZYMES /2016 [facility] CARDIAC Troponin-I <0.02 0.00 - 01/19 EN[facility]YMES 0.40 [facility] CHEM PANEL Lipase Lvl 231 73 - 393 01/19 [facility] CHEM PANEL B/C Ratio 9 6 - 25 01/19 [place] CHEM PANEL AGAP 8.4 10.0 - 01/19 MH 20.0 /2017 [facility] CHEM PANEL A/G Ratio 1.0 0.7 - [...] Alk Phos 111 39 - 136 01/19 [facility] CHEM PANEL AST 31 0 - 37 01/19 [facility] CHEM PANEL eGFR 90 01/19 Result Comment: The [facility] eGFR is calculated using the CKD-EPI formula. [...] Glucose Lvl 73 70 - 99 01/19 [facility] CHEM PANEL Amylase Lvl 75 25 - 115 01/19 [facility] HEMATOLOGY PTT 31.3 22.9 - 01/19 MH 35.8 /2017 [facility] HEMATOLOGY MPV 8.5 7.4 - 10.4 01/19 [facility] HEMATOLOGY Hct 42.0 36.0 - 01/19 MH 48.0 /2016 [facility] HEMATOLOGY RBC 4.92 4.20 - 01/19 MH 5.40 /2017 [facility] HEMATOLOGY Hgb 14.4 12.0 - 01/19 MH 16.0 [facility] HEMATOLOGY RDW 14.2 11.5 - 01/19 MH 14.5 /2016 [facility] HEMATOLOGY Platelet 236 133 - 450 05 /2016 [facility] HEMATOLOGY MCHC 34.2 32.0 - 01/19 MH 36.0 /2017 [facility] HEMATOLOGY MCH 29.2 27.0 - 01/19 MH 31.0 /2016 [facility] HEMATOLOGY MCV 85.5 80.0 - 01/19 MH 98.0 /2016 [facility] HEMATOLOGY WBC 7.7 3.7 - 10.4 01/19 /2016 [facility] HEMATOLOGY PT 13.7 12.0 - 01/19 MH 14.7 /2016 [facility] HEMATOLOGY INR 1.03 0.85 - 01/19 MH 1.17 /2016 [place] HEMATOLOGY Eosinophils 0.3 0.0 - 0.5 05 MH # /2017 [place] HEMATOLOGY Segs 68.3 45.0 - 01/19 MH 75.0 /2017 [facility] HEMATOLOGY Monocytes # 0.6 0.0 - 0.8 01/19 MH /2016 [facility] HEMATOLOGY Segs-Bands # 5.3 1.5 - 8.1 [...] 01/17 MH [place] STOOL (01/16/17 7:23 PM) [facility] URINE AND UA Nitrite Negative Negative 01/17 [facility] (01/16/17 7:23 PM) [facility] URINE AND UA Leuk Est Negative Negative 01/17 [facility] (01/16/17 7:23 PM) [facility] URINE AND UA 1.0 0.1 - 1.0 01/17 [facility] Urobilinogen /2016 [facility] URINE AND UA Blood Negative Negative 01/17 [facility] (01/16/17 7:23 PM) /2016 [facility] URINE AND UA Turbidity Slight Cloudy Clear 01/17 [facility] (01/16/17 7:23 PM) [facility] URINE AND UA Spec Grav 1.007 <=1.030 01/17 [facility] URINE AND UA pH 6.0 5.0 - 8.0 01/17 [facility] URINE AND UA Protein Negative Negative 01/17 [facility] (01/16/17 7:23 PM) [facility] URINE AND UA Color Yellow Yellow 01/17 [facility] *NA* /2016 [facility] (01/16/17 7:23 PM) [place] URINE AND UA RBC 0-2 /HPF 0 - 2 01/17 [facility] URINE AND UA Bacteria Few /HPF None [facility]en [facility] URINE AND UA WBC 0-2 /HPF None Seen 01/17 [facility] /HPF /2016 [facility] URINE AND UA Sq Epi Few /LPF Few /LPF 01/17 [facility] [address] [place] [address] CARDIAC Troponin-I <0.02 0.00 - 01/16 [facility] ENZYMES 0.40 [facility] CARDIAC CK MB 2.0 0.5 - 3.6 01/16 [facility] ENZYMES [facility] CARDIAC Total CK 208 12 - 191 01/16 [facility] ENZYMES [facility] CARDIAC CK MB Index 1.0 0.0 - 2.5 01/16 [facility] ENZYMES [address] CHEM PANEL eGFR 73 01/16 Result [...] PANEL CO2 29 24 - 32 01/[address] CHEM PANEL Sodium Lvl 142 135 - 145 01/[address] CHEM PANEL Glucose Lvl 105 70 - 99 01/[address] CHEM PANEL BUN 15 7 - 22 01/[address] CHEM PANEL AGAP 11.0 10.0 - 01/16 [facility] 20.0 [facility] CHEM PANEL B/C Ratio 16 6 - 25 01/[address] CHEM PANEL Calcium Lvl 9.4 8.5 - 10.5 01/16 [facility] CHEM PANEL Creatinine 0.94 0.50 - 01/16 [facility] CHEM PANEL Chloride Lvl 106 95 - 109 01/16 [facility] 2016 [facility] CHEM PANEL Potassium 4.0 3.5 - 5.1 01/16 [facility] CHEM PANEL Albumin Lvl 3.6 3.5 - 5.0 01/16 [facility] CHEM PANEL ALT 24 0 - 65 01/[address] CHEM PANEL Bili Total 0.6 0.2 - 1.3 01/[address] CHEM PANEL Alk Phos 107 39 - 136 01/[address] CHEM PANEL AST 29 0 - 37 01/[address] CHEM PANEL A/G Ratio 0.9 0.7 - 1.6 01/[address] CHEM PANEL Globulin 3.9 2.7 - 4.2 01/[address] Center CHEM PANEL Total 7.5 6.4 - 8.4 01/16 Protein [facility] HEMATOLOGY Hgb 14.6 12.0 - 01/16 [place] 16.0 [facility] HEMATOLOGY Hct 42.7 36.0 - 01/16 [place] 48.0 [facility] HEMATOLOGY MCHC 34.2 32.0 - 01/16 [place] 36.0 [facility] HEMATOLOGY MCV 85.3 80.0 - 01/16 [place] 98.0 [facility] HEMATOLOGY MCH 29.2 27.0 - 01/16 [place] 31.0 [facility] HEMATOLOGY RDW 14.3 11.5 - 01/16 [place] 14.5 [facility] HEMATOLOGY Platelet 227 133 - 450 01/16 [facility] HEMATOLOGY MPV 8.0 7.4 - 10.4 01/16 [facility] HEMATOLOGY WBC 6.6 3.7 - 10.4 01/16 [facility] HEMATOLOGY RBC 5.00 4.20 - 01/16 [place] 5.40 [facility] HEMATOLOGY Basophils 0.8 0.0 - 1.0 01/16 [facility] HEMATOLOGY Segs-Bands # 4.0 1.5 - 8.1 01/16 [facility] HEMATOLOGY Monocytes # 0.5 0.0 - 0.8 01/16 [place] [facility] HEMATOLOGY Basophils # 0.1 0.0 - 0.2 01/16 s [facility] HEMATOLOGY Lymphocytes 1.8 1.0 - 5.5 01/16 [place] [facility] HEMATOLOGY Eosinophils 0.2 0.0 - 0.5 01/16 [place] [facility] HEMATOLOGY Segs 60.6 45.0 - 01/16 [place] 75.0 [facility] HEMATOLOGY Monocytes 8.3 2.0 - 12.0 01/16 [facility] HEMATOLOGY Eosinophils 3.5 0.0 - 4.0 01/16 [place] [facility] HEMATOLOGY Lymphocytes 26.8 20.0 - 01/16 [place] 40.0 [facility] URINE AND UA Ketones Negative Negative 11/29 STOOL *NA* /2016 [place] (11/28/16 9:18 PM) URINE AND UA Blood Negative Negative 11/29 STO[place] (11/28/16 9:18 PM) [place] URINE AND UA 1.0 0.1 - 1.0 11/29 STOOL Urobilinogen /2016 [place] URINE AND UA Nitrite Negative Negative 11/29 STO[facility] (11/28/16 9:18 PM) [place] URINE AND UA WBC 6-10 /HPF None Seen 11/29 STOOL /HPF /2016 [place] URINE AND UA RBC 0-2 /HPF 0 - 2 11/29 STOOL /2016 [place] URINE AND UA Bili Negative Negative 11/29 STOOL *NA* /2016 [place] (11/28/16 9:18 PM) URINE AND UA Bacteria Occasional None Seen 11/29 STOOL /HPF /HPF /2016 [place] URINE AND UA Sq Epi Occasional Few /LPF 11/29 Result STOOL /LPF /2016 Comment: [place] microscopic exam performed on UNSPUN Urine due to specimen less than 1ml. URINE AND UA Leuk Est Moderate Negative 11/29 STOOL *ABN* [place] (11/28/16 9:18 PM) URINE AND UA Color Yellow Yellow 11/29 STOOL *NA* [place] (11/28/16 9:18 PM) URINE AND UA pH 6.0 5.0 - 8.0 11/29 STOOL /2016 [place] URINE AND UA Protein Negative Negative 11/29 STO[facility] (11/28/16 9:18 PM) [place] URINE AND UA Glucose Negative Negative 11/29 STOOL (11/28/16 9:18 PM) [place] URINE AND UA Spec Grav <=1.005 <=1.030 11/29 STOOL *NA* [place] (11/28/16 9:18 PM) URINE AND UA Turbidity Clear Clear 11/29 STOOL (11/28/16 9:18 PM) [place] CARDIAC Troponin-I <0.02 0.00 - 11/29 ENZYMES 0.40 [place] CARDIAC CK MB 1.3 0.5 - 3.6 11/29 ENZYMES [place] CARDIAC Total CK 89 12 - 191 11/29 ENZYMES [place] CARDIAC CK-MB INDEX 1.5 0.0 - 2.5 11/29 ENZYMES [place] CHEM PANEL Globulin 3.9 2.7 - 4.2 11/29 [place] CHEM PANEL eGFR 50 / Result Comment: The [place] eGFR is calculated using the CKD-EPI formula. [...] A/G Ratio 0.9 0.7 - 1.6 11/29 [place] CHEM PANEL ALANINE 24 0 - 65 / MH AMINOTRANSFE [place] RASE CHEM PANEL Albumin Lvl 3.7 3.5 - 5.0 11/29 [place] CHEM PANEL Alk Phos 89 39 - 136 / [place] CHEM PANEL Glucose Lvl 112 70 - 99 11/29 [place] CHEM PANEL BUN 10 7 - 22 / [place] CHEM PANEL Creatinine 1.28 0.50 - 04/ MH Lvl 1.40 [place] CHEM PANEL CO2 30 24 - 32 / [place] CHEM PANEL Chloride Lvl 103 95 - 109 / [place] CHEM PANEL Calcium Lvl 9.5 8.5 - 10.5 / [place] CHEM PANEL AGAP 9.5 10.0 - 04/ MH 20.0 /2017 [place] CHEM PANEL B/C Ratio 8 6 - 25 / [place] CHEM PANEL Bili Total 0.7 0.2 - 1.3 / [place] CHEM PANEL Sodium Lvl 139 135 - 145 / [place] CHEM PANEL Potassium 3.5 3.5 - 5.1 04/03 MH Lvl /2016 [place] CHEM PANEL Total 7.6 6.4 - 8.4 04/ MH Protein /2016 [place] CHEM PANEL ASPARTATE 14 0 - 37 04/ MH TRANSAMINASE /2016 [place] HEMATOLOGY MCHC 33.4 32.0 - 04/ MH 36.0 /2016 [place] HEMATOLOGY Platelet 261 133 - 450 04/ /2016 [place] HEMATOLOGY RDW 14.7 11.5 - 04/ MH 14.5 /2016 [place] HEMATOLOGY MPV 8.1 7.4 - 10.4 04/ MH /2016 [place] HEMATOLOGY RBC X 10x6 5.34 4.20 - 04/ MH 5.40 /2016 [place] HEMATOLOGY Hgb 15.5 12.0 - 04/ MH 16.0 /2016 [place] HEMATOLOGY MCV 87.0 80.0 - 04/ MH 98.0 /2016 [place] HEMATOLOGY Hct 46.4 36.0 - 04 MH 48.0 /2016 [place] HEMATOLOGY MCH 29.1 27.0 - 04/ MH 31.0 /2016 [place] HEMATOLOGY WBC X 10x3 8.0 3.7 - 10.4 04/ /2016 [place] HEMATOLOGY Basophils # 0.1 0.0 - 0.2 04/ /2016 [place] HEMATOLOGY Lymphocytes 2.0 1.0 - 5.5 04/ MH # /2016 [place] HEMATOLOGY Segs-Bands # 5.1 1.5 - 8.1 04/ /2016 [place] HEMATOLOGY Eosinophils 0.2 0.0 - 0.5 04/ MH # /2016 [place] HEMATOLOGY Monocytes # 0.8 0.0 - 0.8 04/ /2016 [place] HEMATOLOGY Segs 63.2 45.0 - 04/ MH 75.0 /2016 [place] HEMATOLOGY Lymphocytes 24.3 20.0 - 04/ MH 40.0 /2016 [place] HEMATOLOGY Eosinophils 2.1 0.0 - 4.0 / [place] HEMATOLOGY Monocytes 9.6 2.0 - 12.0 04/ /2016 [place] HEMATOLOGY Basophils 0.8 0.0 - 1.0 04/ [place] VIRAL - Influ B Negative Negative 11/29 SEROLOGY (11/28/16 8:10 PM) /[place] VIRAL - Influ A Negative Negative 11/29 SEROLOGY (11/28/16 8:10 PM) [place] CARDIAC CK-MB INDEX 1.3 0.0 - 2.5 11/07 ENZYMES /2016 [place] CARDIAC Troponin-I <0.02 0.00 - 11/07 ENZYMES 0.40 [place] CARDIAC CK MB 1.9 0.5 - 3.6 11/07 ENZYMES [place] CARDIAC Total CK 144 12 - 191 11/07 ENZYMES [place] CHEM PANEL eGFR 77 11/07 Result Comment: The [place] eGFR is calculated using the CKD-EPI formula. [...] 17 0 - 37 11/07 MH TRANSAMINASE [place] CHEM PANEL Total 6.8 6.4 - 8.4 11/07 Protein [place] CHEM PANEL Calcium Lvl 8.5 8.5 - 10.5 11/07 [place] CHEM PANEL Bili Total 0.8 0.2 - 1.3 11/07 [place] CHEM PANEL Chloride Lvl 106 95 - 109 11/07 [place] CHEM PANEL CO2 31 24 - 32 11/07 [place] CHEM PANEL Potassium 3.1 3.5 - 5.1 11/07 MH Lvl [place] CHEM PANEL Creatinine 0.90 0.50 - 11/07 MH Lvl 1.40 [place] CHEM PANEL Sodium Lvl 144 135 - 145 11/07 [place] CHEM PANEL BUN 12 7 - 22 11/07 [place] CHEM PANEL Glucose Lvl 96 70 - 99 03/ [place] CHEM PANEL Albumin Lvl 3.3 3.5 - 5.0 11/07 [place] CHEM PANEL Alk Phos 76 39 - 136 11/07 [place] CHEM PANEL ALANINE 20 0 - 65 03/ MH AMINOTRANS [place] RASE CHEM PANEL Globulin 3.5 2.7 - 4.2 11/07 [place] CHEM PANEL A/G Ratio 0.9 0.7 - 1.6 11/07 [place] CHEM PANEL AGAP 10.1 10.0 - 03/ MH 20.0 [place] CHEM PANEL B/C Ratio 13 6 - 25 11/07 [place] HEMATOLOGY Eosinophils 2.8 0.0 - 4.0 11/07 [place] HEMATOLOGY Eosinophils 0.2 0.0 - 0.5 11/07 MH /2016 [place] HEMATOLOGY Basophils # 0.1 0.0 - 0.2 11/07 [place] HEMATOLOGY Monocytes # 0.7 0.0 - 0.8 11/07 [place] HEMATOLOGY Basophils 0.8 0.0 - 1.0 11/07 [place] HEMATOLOGY Segs-Bands # 4.5 1.5 - 8.1 11/07 [place] HEMATOLOGY Lymphocytes 2.2 1.0 - 5.5 11/07 MH /2016 [place] HEMATOLOGY Segs 58.5 45.0 - 11/07 MH 75.0 [place] HEMATOLOGY Lymphocytes 28.8 20.0 - 03 MH 40.0 [place] HEMATOLOGY Monocytes 9.1 2.0 - 12.0 11/07 [place] HEMATOLOGY Platelet 196 133 - 450 11/07 [place] HEMATOLOGY RDW 14.3 11.5 - 11/07 MH 14. [place] HEMATOLOGY MPV 8.1 7.4 - 10.4 11/07 [place] HEMATOLOGY WBC X 10x3 7.7 3.7 - 10.4 11/07 [place] HEMATOLOGY Hgb 13.1 12.0 - 11/07 MH 16.0 [place] HEMATOLOGY RBC X 10x6 4.48 4.20 - 03 MH 5.40 [place] HEMATOLOGY MCH 29.3 27.0 - 03 MH 31.0 /2016 [place] HEMATOLOGY Hct 39.1 36.0 - 03 MH 48.0 /2016 [place] HEMATOLOGY MCV 87.3 80.0 - 03 MH 98.0 /2016 [place] HEMATOLOGY MCHC 33.6 32.0 - 03 MH 36.0 /2016 [place] DRUG U Benzodia Negative Negative 10/11 [place] [...] Center DRUG U Phencyc Negative Negative 10/11 [facility] SCREEN Scr *NA* /2016 Medical (10/11/16 5:24 AM) Center CARDIAC Troponin-I <0.02 0.00 - 10/11 [place] ENZYMES 0.40 [facility] HEMATOLOGY Eosinophils 0.4 0.0 - 0.5 10[place] # /2016 [facility] HEMATOLOGY Basophils # 0.1 0.0 - 0.2 10/11 [place] [facility] HEMATOLOGY Eosinophils 6.3 0.0 - 4.0 10/11 [place] [facility] HEMATOLOGY Basophils 1.0 0.0 - 1.0 10/11 [facility] HEMATOLOGY Segs-Bands # 2.7 1.5 - 8.1 10/11 [place] [facility] HEMATOLOGY Lymphocytes 2.1 1.0 - 5.5 10/11 [place] # [facility] HEMATOLOGY Monocytes # 0.6 0.0 - 0.8 10[place]2016 [facility] HEMATOLOGY Lymphocytes 36.3 20.0 - 02 [place] 40.0 /2016 [facility] HEMATOLOGY Segs 46.0 45.0 - 10/11 [place] 75.0 [facility] HEMATOLOGY Monocytes 10.4 2.0 - 12.0 10/11 [facility] HEMATOLOGY MPV 8.7 7.4 - 10.4 10/11 [facility] HEMATOLOGY Platelet 194 133 - 450 10/11 [facility] HEMATOLOGY MCH 29.3 27.0 - 02 [place] 31.0 [facility] HEMATOLOGY MCV 87.2 80.0 - 10/11 [place] 98.0 [facility] HEMATOLOGY RDW 14.4 11.5 - 10/11 [place] 14.5 [facility] HEMATOLOGY MCHC 33.6 32.0 - 10/11 [place] 36.0 /2016 [facility] HEMATOLOGY Hgb 13.1 12.0 - 10/11 [place] 16.0 [facility] HEMATOLOGY RBC 4.45 4.20 - 10/11 [place] 5.40 [facility] HEMATOLOGY Hct 38.8 36.0 - 10/11 [place] 48.0 [facility] HEMATOLOGY WBC 5.8 3.7 - 10.4 10/11 [facility] LIPIDS CHD Risk 2.84 3.90 - 10/11 [place] 5.80 [facility] LIPIDS VLDL 14 10/11 [facility] LIPIDS LDL 87 <=99 mg/dL 10/11 [facility] (Calculated) [facility] LIPIDS Trig 71 <=149 10/11 mg/dL [facility] LIPIDS Chol 156 <=199 10/11 [place] mg/dL [facility] LIPIDS HDL 55 >=61 mg/dL 10/11 [facility] CARDIAC Troponin-I <0.02 0.00 - 10/11 [facility] ENZYMES 0. [facility] CARDIAC Troponin-I <0.02 0.00 - 10/10 [facility] ENZYMES 0. [facility] CHEM PANEL eGFR 92 10/10 Result Comment: [...] PANEL BUN 8 7 - 22 10/10 [facility] CHEM PANEL Creatinine 0.78 0.50 - 10/10 [facility] Lvl 1.40 [facility] CHEM PANEL Glucose Lvl 108 70 - 99 10/10 [facility] CHEM PANEL Potassium 3.2 3.5 - 5.1 10/10 [facility] CHEM PANEL Calcium Lvl 9.3 8.5 - 10.5 10/10 [facility] CHEM PANEL CO2 31 24 - 32 10/10 [facility] CHEM PANEL Sodium Lvl 143 135 - 145 10/10 [facility] CHEM PANEL Chloride Lvl 108 95 - 109 10[facility] CHEM PANEL AGAP 7.2 10.0 - 10/10 [facility] 20.0 [facility] HEMATOLOGY MCHC 33.8 32.0 - 02 [place] 36.0 [facility] HEMATOLOGY RDW 14.2 11.5 - 10/10 [place] 14.5 [facility] HEMATOLOGY MCH 29.4 27.0 - 02 [place] 31.0 [facility] HEMATOLOGY MCV 87.0 80.0 - 10/10 [place] 98.0 [facility] HEMATOLOGY Hgb 13.5 12.0 - 02 [place] 16.0 [facility] HEMATOLOGY Hct 39.8 36.0 - 10/10 [place] 48.0 [facility] HEMATOLOGY Platelet 208 133 - 450 10/10 [facility] HEMATOLOGY MPV 8.7 7.4 - 10.4 10/10 [facility] HEMATOLOGY WBC 6.6 3.7 - 10.4 10/10 [facility] HEMATOLOGY RBC 4.58 4.20 - 10/10 [place] 5.40 /2016 [facility] HEMATOLOGY Lymphocytes 1.8 1.0 - 5.5 10/10 [facility] /2016 [facility] HEMATOLOGY Monocytes # 0.6 0.0 - 0.8 10/10 [facility] HEMATOLOGY Eosinophils 0.3 0.0 - 0.5 10/10 [facility] HEMATOLOGY Basophils 0.6 0.0 - 1.0 10/10 [facility] HEMATOLOGY Segs-Bands # 3.9 1.5 - 8.1 10/10 [facility] HEMATOLOGY Monocytes 9.0 2.0 - 12.0 10/10 [facility] HEMATOLOGY Eosinophils 4.1 0.0 - 4.0 10/10 [facility] HEMATOLOGY Segs 59.5 45.0 - 10/10 [place] 75.0 [facility] HEMATOLOGY Lymphocytes 26.8 20.0 - 10/10 [place] 40.0 [facility] CARDIAC Troponin-I <0.02 0.00 - 04/14 [facility] ENZYMES 0.40 [facility] ELECTROLYT AGAP 13.5 10.0 - 04/14 [facility] ES 20.0 [facility] ELECTROLYT eGFR 79 04/14 Result [facility] Comment: The Medical eGFR is Center calculated [...] BMI. ELECTROLYT Creatinine 0.89 0.50 - 04/14 [facility] ES Lvl 1.40 [facility] ELECTROLYT BUN 9 7 - 22 04/14 [facility] ELECTROLYT Glucose Lvl 72 70 - 99 04/14 [facility] ELECTROLYT Chloride Lvl 107 95 - 109 04/14 [place] [facility] ELECTROLYT CO2 25 24 - 32 04/14 [facility] ELECTROLYT Calcium Lvl 8.9 8.5 - 10.5 04/14 [place] [facility] ELECTROLYT Sodium Lvl 142 135 - 145 04/14 [facility] ELECTROLYT Potassium 3.5 3.5 - 5.1 04/14 [facility] ES Lvl /2015 [facility] HEMATOLOGY Platelet 181 133 - 450 04/14 [facility] HEMATOLOGY MPV 8.5 7.4 - 10.4 04/14 [facility] HEMATOLOGY MCHC 33.5 32.0 - 04/14 [place] 36.0 /2015 [facility] HEMATOLOGY MCH 28.7 27.0 - 04/14 [place] 31.0 [facility] HEMATOLOGY RDW 15.0 11.5 - 04/14 [place] 14.5 /2015 [facility] HEMATOLOGY Hct 38.3 36.0 - 04/14 [place] 48.0 [facility] HEMATOLOGY MCV 85.6 80.0 - 04/14 [place] 98.0 /2015 [facility] HEMATOLOGY Hgb 12.9 12.0 - 04/14 [place] 16.0 /2015 [facility] HEMATOLOGY RBC 4.48 4.20 - 04/14 [place] 5.40 /2015 [facility] HEMATOLOGY WBC 5.6 3.7 - 10.4 04/14 [facility] HEMATOLOGY Basophils # 0.1 0.0 - 0.2 04/14 [place] /2015 [facility] HEMATOLOGY Lymphocytes 2.2 1.0 - 5.5 04/14 [place] # /2015 [facility] HEMATOLOGY Eosinophils 0.3 0.0 - 0.5 04/14 [place] # /2015 [facility] HEMATOLOGY Monocytes # 0.5 0.0 - 0.8 04/14 [place] /2015 [facility] HEMATOLOGY Eosinophils 6.1 0.0 - 4.0 04/14 [place] /2015 [facility] HEMATOLOGY Basophils 1.1 0.0 - 1.0 04/14 [place] [facility] HEMATOLOGY Segs-Bands # 2.5 1.5 - 8.1 04/14 [place] [facility] HEMATOLOGY Lymphocytes 38.8 20.0 - 04/14 [place] 40.0 /2015 [facility] HEMATOLOGY Monocytes 9.2 2.0 - 12.0 04/14 [facility] HEMATOLOGY Segs 44.8 45.0 - 04/14 [place] 75.0 [facility] TOXICOLOGY Ethanol Lvl 8 04/14 [facility] TOXICOLOGY Etoh (%) 0.008 04/14 [facility] CARDIAC Troponin-I <0.02 0.00 - 03/12 ENZYMES 0.40 [place] LIPIDS CHD Risk 3.39 3.90 - 03/12 5.80 /2015 [place] LIPIDS VLDL 18 03/12 [place] LIPIDS LDL 73 <=99 mg/dL 03/12 (Calculated) [place] LIPIDS Trig 90 <=149 03/12 mg/dL [place] LIPIDS Chol 129 <=199 03/12 mg/dL [place] LIPIDS HDL 38 >=61 mg/dL 03/12 [place] SPECIAL Hgb A1C 5.9 <=5.6 % 03/12 CHEMISTRY /2015 [place] CARDIAC Total CK 81 12 - 191 03/12 ENZYMES /2015 [place] CARDIAC Troponin-I 0.02 0.00 - 03/12 EN[place]YMES 0.40 [place] CARDIAC CK-MB INDEX 1.6 0.0 - 2.5 03/12 ENZYMES [place] CARDIAC CK MB 1.3 0.5 - 3.6 03/12 ENZYMES /2015 [place] HEMATOLOGY PROTIME 14.0 12.0 - 03/11 MH 14.7 /2015 [place] HEMATOLOGY INR 1.05 0.85 - 03/11 MH 1.17 [place] HEMATOLOGY aPTT 38.7 22.9 - 03/11 35.8 /2015 [place] HEMATOLOGY D-Dimer 0.49 03/11 /2015 [place] CARDIAC CK-MB INDEX 1.6 0.0 - 2.5 03/11 ENZYMES [place] CARDIAC CK MB 1.3 0.5 - 3.6 07/14 MH ENZYMES /2016 [place] CARDIAC Troponin-I <0.02 0.00 - 07 ENZYMES 0.40 /2016 [place] CARDIAC Total CK 83 12 - 191 / MH ENZYMES /2016 [place] CARDIAC proBNP 50 0 - 125 / MH ENZYMES /2016 [place] CHEM PANEL Lipase Lvl 196 73 - 393 03/11 MH [place] CHEM PANEL eGFR 110 / Result Comment: The [place] eGFR is calculated using the CKD-EPI formula. [...] PANEL Globulin 2.8 2.0 - 4.0 03/11 [place] CHEM PANEL A/G Ratio 1.2 0.7 - 1.6 03/11 [place] CHEM PANEL B/C Ratio 15 6 - 25 03/11 [place] CHEM PANEL AGAP 10.4 10.0 - 03/11 MH 20.0 /2016 [place] CHEM PANEL ASPARTATE 14 0 - 37 / MH TRANSAMINASE /2015 [place] CHEM PANEL Total 6.1 6.4 - 8.4 03/11 Protein /2015 [place] CHEM PANEL Bili Total 0.5 0.2 - 1.3 03/11 [place] CHEM PANEL Calcium Lvl 7.7 8.5 - 10.5 03/11 /2015 [place] CHEM PANEL CO2 26 24 - 32 03/11 [place] CHEM PANEL Chloride Lvl 110 95 - 109 03/11 [place] CHEM PANEL Potassium 3.4 3.5 - 5.1 03/11 MH Lvl /2015 [place] CHEM PANEL Sodium Lvl 143 135 - 145 07/ [place] CHEM PANEL Creatinine 0.61 0.50 - 07 MH Lvl 1.40 [place] CHEM PANEL BUN 9 7 - 22 03/11 [place] CHEM PANEL Alk Phos 76 39 - 136 07 [place] CHEM PANEL Glucose Lvl 88 70 - 99 07 [place] CHEM PANEL Albumin Lvl 3.3 3.5 - 5.0 07 [place] CHEM PANEL ALANINE 15 0 - 65 07 MH AMINOTRANSFE [place] [facility] HEMATOLOGY Lymphocytes 1.8 1.0 - 5.5 07 MH # /2015 [place] HEMATOLOGY Monocytes # 0.5 0.0 - 0.8 07 [place] HEMATOLOGY Basophils 1.0 0.0 - 1.0 03/11 [place] HEMATOLOGY Segs-Bands # 4.1 1.5 - 8.1 03/11 [place] HEMATOLOGY Eosinophils 0.2 0.0 - 0.5 03/11 MH # /2015 [place] HEMATOLOGY Basophils # 0.1 0.0 - 0.2 07 [place] HEMATOLOGY Segs 61.4 45.0 - 07 MH 75.0 [place] HEMATOLOGY Eosinophils 3.5 0.0 - 4.0 03/11 [place] HEMATOLOGY Lymphocytes 26.6 20.0 - 03/11 MH 40.0 [place] HEMATOLOGY Monocytes 7.5 2.0 - 12.0 07 [place] HEMATOLOGY WBC X 10x3 6.7 3.7 - 10.4 07 [place] HEMATOLOGY Hgb 12.2 12.0 - 07 MH 16.0 [place] HEMATOLOGY RBC X 10x6 4.26 4.20 - 07 MH 5.40 [place] HEMATOLOGY MCH 28.7 27.0 - 07 MH 31.0 [place] HEMATOLOGY MCV 86.0 80.0 - 07 MH 98.0 [place] HEMATOLOGY RDW 14.9 11.5 - 07 MH 14. [place] HEMATOLOGY MCHC 33.3 32.0 - 07 MH 36.0 [place] HEMATOLOGY Hct 36.6 36.0 - 07 MH 48.0 [place] HEMATOLOGY MPV 8.7 7.4 - 10.4 03/11 [place] HEMATOLOGY Platelet 171 133 - 450 03/11 [place] URINE AND UA WBC 0-2 /HPF None Seen 03/11 [facility] /HPF /2015 [place] URINE AND UA Nitrite Negative Negative 03/11 [facility] (03/11/16 3:14 PM) /2015 [place] URINE AND UA Leuk Est Negative Negative 03/11 [facility] (03/11/16 3:14 PM) /2015 [place] URINE AND UA Bacteria Occasional None Seen 03/11 [facility] /HPF /HPF /2015 [place] URINE AND UA RBC 0-2 /HPF 0 - 2 03/11 STOOL /2015 [place] URINE AND UA Sq Epi Occasional Few /LPF 03/11 STOOL /LPF /2015 [place] URINE AND UA Blood Negative Negative 03/11 [facility] (03/11/16 3:14 PM) /2015 [place] URINE AND UA 0.2 0.1 - 1.0 03/11 [facility] Urobilinogen /2015 [place] URINE AND UA Turbidity Clear Clear 03/11 [facility] (03/11/16 3:14 PM) /2015 [place] URINE AND UA Glucose Negative Negative 03/11 [facility] (03/11/16 3:14 PM) /2015 [place] URINE AND UA Spec Grav <=1.005 <=1.030 03/11 [facility] *NA* /2015 [place] (03/11/16 3:14 PM) URINE AND UA pH 6.5 5.0 - 8.0 03/11 STOOL /2015 [place] URINE AND UA Ketones Negative Negative 03/11 STOOL *NA* /2015 [place] (03/11/16 3:14 PM) URINE AND UA Bili Negative Negative 03/11 STOOL *NA* [place] (03/11/16 3:14 PM) URINE AND UA Protein Negative Negative 03/11 STOOL (03/11/16 3:14 PM) /2015 [place] URINE AND UA Color Yellow Yellow 03/11 STOOL *NA* /2015 [place] (03/11/16 3:14 PM) URINE AND UA Color Yellow Yellow 03/01 STOOL *NA* [place] (02/29/16 7:22 PM) URINE AND UA pH 6.0 5.0 - 8.0 03/01 STOOL /2015 [place] URINE AND UA Turbidity Clear Clear 03/01 STO[facility] (02/29/16 7:22 PM) /2015 [place] URINE AND UA Spec Grav 1.015 <=1.030 03/01 STOOL /2015 [place] URINE AND UA Leuk Est Trace Negative 03/01 STOOL *ABN* /2015 [place] (02/29/16 7:22 PM) URINE AND UA Bacteria Few /HPF None Seen 03/01 STOOL /HPF /2015 [place] URINE AND UA RBC None Seen 0 - 2 03/01 [facility] (02/29/16 7:22 PM) /2015 [place] URINE AND UA Sq Epi Moderate Few /LPF 03/01 STOOL /LPF /2015 [place] URINE AND UA WBC 0-2 /HPF None Seen 03/01 ST[facility] /HPF /2015 [place] URINE AND UA Blood Negative Negative 03/01 [facility] (02/29/16 7:22 PM) /2015 [place] URINE AND UA 1.0 0.1 - 1.0 03/01 STOOL Urobilinogen /2015 [place] URINE AND UA Nitrite Negative Negative 03/01 ST[facility] (02/29/16 7:22 PM) /2015 [place] URINE AND UA Few /HPF None Seen 03/01 STOOL Trichomonas /HPF /2015 [place] URINE AND UA Protein Negative Negative 03/01 [facility] (02/29/16 7:22 PM) [place] URINE AND UA Bili Negative Negative 03/01 STOOL *NA* /2015 [place] (02/29/16 7:22 PM) URINE AND UA Ketones Negative Negative 03/01 STOOL *NA* /2015 [place] (02/29/16 7:22 PM) URINE AND UA Glucose Negative Negative 03/01 [facility] (02/29/16 7:22 PM) /2015 [place] CARDIAC Troponin-I <0.02 0.00 - 02/28 ENZYMES 0.40 /2015 [place] CARDIAC CK MB 1.1 0.5 - 3.6 02/28 ENZYMES [place] CARDIAC Total CK 136 12 - 191 02/28 ENZYMES /2015 [place] CARDIAC proBNP 7 0 - 125 02/28 ENZYMES /2015 [place] CARDIAC CK-MB INDEX 0.8 0.0 - 2.5 MH ENZYMES /2015 [place] CHEM PANEL eGFR 80 02/28 Result Comment: The [place] eGFR is calculated using the CKD-EPI formula. [...] ASPARTATE 13 0 - 37 02/28 TRANSAMINASE [place] CHEM PANEL A/G Ratio 1.0 0.7 - 1.6 02/28 [place] CHEM PANEL Globulin 3.6 2.0 - 4.0 02/28 [place] CHEM PANEL B/C Ratio 9 6 - 25 02/28 [place] CHEM PANEL Total 7.1 6.4 - 8.4 02/28 [place] CHEM PANEL AGAP 10.0 10.0 - 02/28 MH 20.0 /2015 [place] CHEM PANEL Sodium Lvl 143 135 - 145 02/28 [place] CHEM PANEL Potassium 3.0 3.5 - 5.1 02/28 Result Lvl /2015 Comment: [place] Critical Result(s) called to HAI RUVALCABA RN at 02/29/2016 18:45 by MRE. Read back OK. CHEM PANEL Creatinine 0.88 0.50 - 07 MH Lvl 1.40 /2015 [place] CHEM PANEL CO2 30 24 - 32 02/28 [place] CHEM PANEL Bili Total 0.6 0.2 - 1.3 02/28 [place] CHEM PANEL Calcium Lvl 8.7 8.5 - 10.5 02/28 [place] CHEM PANEL Chloride Lvl 106 95 - 109 /2015 [place] CHEM PANEL ALANINE 15 0 - 65 07/ MH AMINOTRANSFE /2015 [place] RASE CHEM PANEL Alk Phos 88 39 - 136 07/ /2015 [place] CHEM PANEL Albumin Lvl 3.5 3.5 - 5.0 07/ /2015 [place] CHEM PANEL BUN 8 7 - 22 07/ /2015 [place] CHEM PANEL Glucose Lvl 89 70 - 99 07/ /2015 [place] HEMATOLOGY PROTIME 13.2 12.0 - 07/ MH 14.7 /2015 [place] HEMATOLOGY INR 0.97 0.85 - 07/ MH 1.17 /2015 [place] HEMATOLOGY RDW 15.3 11.5 - 07 MH 14.5 /2015 [place] HEMATOLOGY MCHC 32.9 32.0 - 07/ MH 36.0 /2015 [place] HEMATOLOGY Hct 43.8 36.0 - 07/ MH 48.0 /2015 [place] HEMATOLOGY MCH 28.1 27.0 - 07 MH 31.0 [place] HEMATOLOGY MCV 85.5 80.0 - 07/ MH 98.0 /2015 [place] HEMATOLOGY WBC X 10x3 5.3 3.7 - 10.4 07/ /2015 [place] HEMATOLOGY Hgb 14.4 12.0 - 07/ MH 16.0 /2015 [place] HEMATOLOGY RBC X 10x6 5.12 4.20 - 07/ MH 5.40 /2015 [place] HEMATOLOGY Platelet 197 133 - 450 07/ MH /2015 [place] HEMATOLOGY MPV 8.1 7.4 - 10.4 07/ /2015 [place] HEMATOLOGY Segs 57.2 45.0 - 07/ MH 75.0 /2015 [place] HEMATOLOGY Monocytes 11.7 2.0 - 12.0 07/ MH /2015 [place] HEMATOLOGY Lymphocytes 24.1 20.0 - 07/ MH 40.0 [place] HEMATOLOGY Basophils # 0.1 0.0 - 0.2 07/03 MH /2015 [place] HEMATOLOGY Monocytes # 0.6 0.0 - 0.8 07/ MH /2015 [place] HEMATOLOGY Lymphocytes 1.3 1.0 - 5.5 07/03 MH # /2015 [place] HEMATOLOGY Eosinophils 0.3 0.0 - 0.5 07/03 MH # /2015 [place] HEMATOLOGY Segs-Bands # 3.0 1.5 - 8.1 02/28 [place] HEMATOLOGY Eosinophils 5.9 0.0 - 4.0 02/28 [place] HEMATOLOGY Basophils 1.1 0.0 - 1.0 02/28 [place] CARDIAC CK MB Index 0.7 0.0 - 2.5 09/04 ENZYMES [facility] CARDIAC CK MB 0.7 0.5 - 3.6 09/04 ENZYMES /2015 [facility] CARDIAC Troponin-I <0.02 0.00 - 09/04 ENZYMES 0.40 /2015 [facility] CARDIAC Total CK 97 12 - 191 09/04 ENZYMES [facility] ELECTROLYT AGAP 18.3 10.0 - 09/04 ES 20.0 /2015 [facility] ELECTROLYT eGFR 78 09/04 [facility] Comment: The [facility] eGFR is calculated using the CKD-EPI formula. [...] Glucose Lvl 134 70 - 99 09/04 [facility] ELECTROLYT BUN 10 7 - 22 09/04 [facility] ELECTROLYT Creatinine 0.90 0.50 - 09/04 ES Lvl 1.40 /2015 [facility] ELECTROLYT CO2 20 24 - 32 09/04 [facility] ELECTROLYT Calcium Lvl 9.4 8.5 - 10.5 09/04 [facility] ELECTROLYT Potassium 4.3 3.5 - 5.1 09/04 ES Lvl /2015 [facility] ELECTROLYT Chloride Lvl 106 95 - 109 09/04 [facility] ELECTROLYT Sodium Lvl 140 135 - 145 09/04 ES /2015 [facility] HEMATOLOGY WBC 9.6 3.7 - 10.4 09/04 /2015 [facility] HEMATOLOGY Hct 41.4 36.0 - 09/04 48.0 /2015 [facility] HEMATOLOGY Hgb 13.1 12.0 - 09/04 MH 16.0 /2015 [facility] HEMATOLOGY RBC 4.74 4.20 - 09/04 MH 5.40 /2015 [facility] HEMATOLOGY MCV 87.3 80.0 - 09/04 98.0 /2015 [facility] HEMATOLOGY MCHC 31.5 32.0 - 09/04 MH 36.0 /2015 [facility] HEMATOLOGY MCH 27.5 27.0 - 09/04 MH 31.0 /2015 [facility] HEMATOLOGY MPV 8.7 7.4 - 10.4 09/04 /2015 [facility] HEMATOLOGY Platelet 226 133 - 450 09/04 /2015 [facility] HEMATOLOGY RDW 14.4 11.5 - 09/04 14.5 /2015 [facility] HEMATOLOGY Monocytes # 0.1 0.0 - 0.8 09/04 /2015 [facility] HEMATOLOGY Lymphocytes 0.5 1.0 - 5.5 09/04 MH # /2015 [facility] HEMATOLOGY RBC Morph Normal 09/04 (09/04/15 11:04 AM) /2015 [facility] est HEMATOLOGY Plt Morph Normal 09/04 (09/04/15 11:04 AM) /2015 [facility] est HEMATOLOGY Segs 93.3 45.0 - 09/04 75.0 /2015 [facility] HEMATOLOGY Basophils 0.2 0.0 - 1.0 09/04 /2015 [facility] HEMATOLOGY Lymphocytes 5.4 20.0 - 09/04 40.0 /2015 [facility] HEMATOLOGY Monocytes 1.1 2.0 - 12.0 09/04 /2015 [facility] HEMATOLOGY Segs-Bands # 9.0 1.5 - 8.1 09/04 [facility] LIPIDS VLDL 14 09/04 [facility] LIPIDS Chol 198 <=199 09/04 mg/dL /2015 [facility] LIPIDS HDL 54 >=61 mg/dL 09/04 [facility] LIPIDS Trig 71 <=149 09/04 mg/dL /2015 [facility] LIPIDS LDL 130 <=99 mg/dL 09/04 (Calculated) /2015 [facility] LIPIDS CHD Risk 3.67 3.90 - 09/04 5.80 /2015 [facility] CARDIAC CK MB Index 0.6 0.0 - 2.5 09/04 MH ENZYMES /2015 [facility] CARDIAC CK MB 0.6 0.5 - 3.6 09/04 ENZYMES /2015 [facility] CARDIAC Troponin-I <0.02 0.00 - 09/04 ENZYMES 0.40 [facility] CARDIAC Total CK 103 12 - 191 09/04 MH ENZYMES /2015 [facility] CARDIAC Total CK 113 12 - 191 09/04 ENZYMES /2015 [facility] CARDIAC Troponin-I <0.02 0.00 - 09/04 ENZYMES 0.40 [facility] CARDIAC CK MB 0.8 0.5 - 3.6 09/04 ENZYMES /2015 [facility] CARDIAC CK MB Index 0.7 0.0 - 2.5 09/04 ENZYMES [facility] CHEM PANEL eGFR 87 09/04 [facility] Comment: The [facility] eGFR is calculated using the CKD-EPI formula. [...] PANEL BUN 8 7 - 22 09/04 [facility] CHEM PANEL Creatinine 0.82 0.50 - 09/04 MH Lvl 1.40 [facility] CHEM PANEL Glucose Lvl 115 70 - 99 09/04 [facility] CHEM PANEL Chloride Lvl 106 95 - 109 09/04 [facility] CHEM PANEL Potassium 3.9 3.5 - 5.1 09/04 MH Lvl [facility] CHEM PANEL Sodium Lvl 141 135 - 145 09/04 [facility] CHEM PANEL AGAP 13.9 10.0 - 09/04 MH 20.0 [facility] CHEM PANEL Calcium Lvl 9.2 8.5 - 10.5 09/04 [facility] CHEM PANEL CO2 25 24 - 32 09/04 /2015 [facility] HEMATOLOGY WBC 7.4 3.7 - 10.4 09/04 [facility] HEMATOLOGY Hgb 12.4 12.0 - 09/04 MH 16.0 /2015 [facility] HEMATOLOGY RBC 4.57 4.20 - 09/04 MH 5.40 /2015 [facility] HEMATOLOGY Hct 39.4 36.0 - 09/04 MH 48.0 /2015 [facility] HEMATOLOGY MCV 86.1 80.0 - 09/04 98.0 /2015 [facility] HEMATOLOGY RDW 14.7 11.5 - 09/04 MH 14.5 /2015 [facility] HEMATOLOGY MCHC 31.6 32.0 - 09/04 MH 36.0 /2015 [facility] HEMATOLOGY MCH 27.2 27.0 - 09/04 MH 31.0 /2015 [facility] HEMATOLOGY MPV 8.3 7.4 - 10.4 09/04 [facility] HEMATOLOGY Platelet 239 133 - 450 09/04 [facility] HEMATOLOGY Eosinophils 5.5 0.0 - 4.0 09/04 [facility] HEMATOLOGY Monocytes 6.5 2.0 - 12.0 09/04 [facility] HEMATOLOGY Lymphocytes 31.7 20.0 - 09/04 40.0 [facility] HEMATOLOGY Segs 55.0 45.0 - 09/04 75.0 /2015 [facility] HEMATOLOGY Monocytes # 0.5 0.0 - 0.8 09/04 [facility] HEMATOLOGY Lymphocytes 2.3 1.0 - 5.5 09/04 # /2015 [facility] HEMATOLOGY Segs-Bands # 4.0 1.5 - 8.1 09/04 [facility] HEMATOLOGY Basophils 1.3 0.0 - 1.0 09/04 [facility] HEMATOLOGY Basophils # 0.1 0.0 - 0.2 09/04 [facility] HEMATOLOGY Eosinophils 0.4 0.0 - 0.5 09/04 MH # /2015 [facility] CARDIAC Troponin-I <0.02 0.00 - 07/16 ENZYMES 0.40 [facility] CARDIAC Total CK 75 12 - 191 07/16 MH ENZYMES /2014 [facility] CARDIAC CK MB 0.9 0.5 - 3.6 07/16 MH ENZYMES /2014 [facility] CARDIAC CK-MB INDEX 1.2 0.0 - 2.5 07/16 MH ENZYMES /2014 [facility] CHEM PANEL eGFR 105 07/16 Result Comment: The [facility] eGFR is calculated using the CKD-EPI formula. [...] Bili Total 0.6 0.2 - 1.3 07/16 [facility] CHEM PANEL Albumin Lvl 3.1 3.5 - 5.0 07/16 [facility] CHEM PANEL Calcium Lvl 9.0 8.5 - 10.5 07/16 [facility] CHEM PANEL Total 6.3 6.4 - 8.4 07/16 [facility] CHEM PANEL AST 14 0 - 37 07/16 [facility] CHEM PANEL Alk Phos 89 39 - 136 07/16 [facility] CHEM PANEL ALT 19 0 - 65 07/16 [facility] CHEM PANEL CO2 25 24 - 32 07/16 [facility] CHEM PANEL Potassium 4.2 3.5 - 5.1 07/16 [facility] CHEM PANEL Chloride Lvl 108 95 - 109 07/16 [facility] CHEM PANEL BUN 14 7 - 22 07/16 [facility] CHEM PANEL Creatinine 0.70 0.50 - 11 MH Lvl 1.40 /2014 [facility] CHEM PANEL Sodium Lvl 139 135 - 145 07/16 [facility] CHEM PANEL Glucose Lvl 78 70 - 99 07/16 [facility] CHEM PANEL B/C Ratio 20 6 - 25 07/16 [facility] CHEM PANEL AGAP 10.2 10.0 - 07/16 MH 20.0 /2014 [facility] CHEM PANEL A/G Ratio 1.0 0.7 - 1.6 07/16 [facility] CHEM PANEL Globulin 3.2 2.0 - 4.0 11 MH /2014 [facility] HEMATOLOGY MPV 8.6 7.4 - 10.4 07/16 MH /2014 [facility] HEMATOLOGY Platelet 166 133 - 450 07/16 MH /2014 [facility] HEMATOLOGY RDW 14.3 11.5 - 18 MH 14.5 /2014 [facility] HEMATOLOGY RBC 4.53 4.20 - 07/16 MH 5.40 /2014 [facility] HEMATOLOGY WBC 5.5 3.7 - 10.4 07/16 MH /2014 [facility] HEMATOLOGY MCH 27.9 27.0 - 07/16 MH 31.0 /2014 [facility] HEMATOLOGY MCHC 31.5 32.0 - 07/16 MH 36.0 /2014 [facility] HEMATOLOGY MCV 88.6 80.0 - 07/16 MH 98.0 /2014 [facility] HEMATOLOGY Hct 40.2 36.0 - 07/16 MH 48.0 /2014 [facility] HEMATOLOGY Hgb 12.6 12.0 - 07/16 MH 16.0 /2014 [facility] HEMATOLOGY Eosinophils 0.2 0.0 - 0.5 07/16 MH # /2014 [facility] HEMATOLOGY Lymphocytes 2.0 1.0 - 5.5 07/16 MH # /2014 [facility] HEMATOLOGY Basophils 0.9 0.0 - 1.0 07/16 MH /2014 [facility] HEMATOLOGY Monocytes # 0.6 0.0 - 0.8 07/16 MH /2014 [facility] HEMATOLOGY Segs-Bands # 2.6 1.5 - 8.1 07/16 MH /2014 [facility] HEMATOLOGY Monocytes 11.0 2.0 - 12.0 07/16 MH /2014 [facility] HEMATOLOGY Eosinophils 4.0 0.0 - 4.0 07/16 MH /2014 [facility] HEMATOLOGY Lymphocytes 36.1 20.0 - 07/16 MH 40.0 /2014 [facility] HEMATOLOGY Segs 48.0 45.0 - 07/16 MH 75.0 /2014 [facility] HEMATOLOGY Basophils # 0.1 0.0 - 0.2 07/16 MH /2014 [facility] CARDIAC Troponin-I <0.02 0.00 - 07/16 MH ENZYMES 0.40 [facility] CARDIAC Total CK 88 12 - 191 07/16 MH ENZYMES /2014 [facility] CARDIAC CK MB Index 1.1 0.0 - 2.5 07/16 MH ENZYMES /2014 [facility] CARDIAC CK MB 1.0 0.5 - 3.6 07/16 MH ENZYMES /2014 [facility] CARDIAC Troponin-I <0.02 0.00 - 07/15 MH ENZYMES 0.40 /2014 [facility] CARDIAC CK MB 1.2 0.5 - 3.6 07/15 ENZYMES /2014 [facility] CARDIAC Total CK 103 12 - 191 07/15 ENZYMES [facility] CARDIAC CK MB Index 1.2 0.0 - 2.5 07/15 ENZYMES [facility] CHEM PANEL eGFR 90 07/15 [facility] Comment: The [facility] eGFR is calculated using the CKD-EPI formula. [...] Alk Phos 91 39 - 136 07/15 [facility] CHEM PANEL AST 19 0 - 37 07/15 [facility] CHEM PANEL ALT 17 0 - 65 07/15 [facility] CHEM PANEL B/C Ratio 12 6 - 25 07/15 [facility] CHEM PANEL Bili Total 0.8 0.2 - 1.3 07/15 [facility] CHEM PANEL AGAP 11.1 10.0 - 07/15 MH 20.0 /2014 [facility] CHEM PANEL Albumin Lvl 3.5 3.5 - 5.0 07/15 [place] CHEM PANEL CO2 27 24 - 32 07/15 [facility] CHEM PANEL Total 6.8 6.4 - 8.4 07/15 Protein [facility] CHEM PANEL Calcium Lvl 8.7 8.5 - 10.5 07/15 [facility] CHEM PANEL Globulin 3.3 2.0 - 4.0 07/15 [facility] CHEM PANEL A/G Ratio 1.1 0.7 - 1.6 07/15 [facility] CHEM PANEL Creatinine 0.80 0.50 - 07/15 MH Lvl 1.40 /2014 [facility] CHEM PANEL Chloride Lvl 104 95 - 109 07/15 /2014 [facility] CHEM PANEL Sodium Lvl 138 135 - 145 07/15 [facility] CHEM PANEL Potassium 4.1 3.5 - 5.1 07/15 MH Lvl /2014 [facility] CHEM PANEL BUN 10 7 - 22 07/15 /2014 [facility] CHEM PANEL Glucose Lvl 72 70 - 99 07/15 /2014 [facility] HEMATOLOGY Segs-Bands # 3.3 1.5 - 8.1 07/15 /2014 [facility] HEMATOLOGY Eosinophils 0.2 0.0 - 0.5 07/15 MH # /2014 [facility] HEMATOLOGY Monocytes # 0.6 0.0 - 0.8 07/15 /2014 [facility] HEMATOLOGY Lymphocytes 2.3 1.0 - 5.5 07/15 MH # /2014 [facility] HEMATOLOGY Segs 51.8 45.0 - 07/15 MH 75.0 /2014 [facility] HEMATOLOGY Basophils 0.6 0.0 - 1.0 07/15 [facility] HEMATOLOGY Eosinophils 3.1 0.0 - 4.0 07/15 /2014 [facility] HEMATOLOGY Monocytes 9.4 2.0 - 12.0 07/15 /2014 [facility] HEMATOLOGY Lymphocytes 35.1 20.0 - 07/15 40.0 /2014 [facility] HEMATOLOGY Basophils # 0.0 0.0 - 0.2 07/15 /2014 [facility] HEMATOLOGY MPV 9.1 7.4 - 10.4 07/15 /2014 [facility] HEMATOLOGY MCV 87.6 80.0 - 07/15 98.0 /2014 [facility] HEMATOLOGY Hgb 12.9 12.0 - 07/15 16.0 /2014 [facility] HEMATOLOGY Hct 39.8 36.0 - 07/15 48.0 /2014 [facility] HEMATOLOGY MCHC 32.3 32.0 - 07/15 36.0 /2014 [facility] HEMATOLOGY RDW 14.8 11.5 - 07/15 14.5 /2014 [facility] HEMATOLOGY MCH 28.3 27.0 - 07/15 31.0 /2014 [facility] HEMATOLOGY Platelet 171 133 - 450 07/15 [facility] HEMATOLOGY RBC 4.54 4.20 - 07/15 5.40 /2014 [facility] HEMATOLOGY WBC 6.4 3.7 - 10.4 07/15 [facility] IMMUNOLOGY [facility] HIV 4th Negative Negative 05/18 [facility] GEN (05/18/15 2:18 PM) [facility] CARDIAC Troponin-I <0.02 0.00 - 05/18 [facility] ENZYMES 0.40 [facility] CHEM PANEL Bili Direct 0.1 0.0 - 0.3 05/18 [facility] /2014 [facility] CHEM PANEL Globulin 3.9 2.0 - 4.0 05/18 [facility] CHEM PANEL Alk Phos 105 39 - 136 05/18 [place] [facility] CHEM PANEL Bili Total 0.5 0.2 - 1.3 05/18 [place] [facility] CHEM PANEL AST 22 0 - 37 05/18 [place] [facility] CHEM PANEL ALT 18 0 - 65 05/18 [facility] /2014 [facility] CHEM PANEL Total 7.9 6.4 - 8.4 05/18 [facility] Protein [facility] CHEM PANEL Albumin Lvl 4.0 3.5 - 5.0 05/18 [facility] CHEM PANEL Bili 0.4 0.0 - 1.0 05/18 [facility] Indirect [facility] CHEM PANEL A/G Ratio 1.0 0.7 - 1.6 05/18 [facility] CHEM PANEL Lipase Lvl 266 73 - 393 05/18 [facility] CHEM PANEL eGFR 78 05/18 [facility] Comment: The Medical eGFR is Center [...] Sodium Lvl 138 135 - 145 05/18 [facility] CHEM PANEL Potassium 3.9 3.5 - 5.1 05/18 [facility] CHEM PANEL Creatinine 0.9 0.5 - 1.4 05/18 [facility] CHEM PANEL Glucose Lvl 87 70 - 99 05/18 [facility] CHEM PANEL BUN 7 7 - 22 05/18 [facility] CHEM PANEL Chloride Lvl 103 95 - 109 05/18 [facility] [place] CHEM PANEL CO2 28 24 - 32 05/18 [facility] CHEM PANEL Calcium Lvl 10.2 8.5 - 10.5 05/18 [facility] CHEM PANEL AGAP 10.9 10.0 - 05/18 20.0 [facility] HEMATOLOGY Hgb 14.2 12.0 - 05/18 [place] 16.0 [facility] HEMATOLOGY RBC 4.96 4.20 - 05/18 [place] 5.40 /2014 [facility] [place] [facility] HEMATOLOGY MCH 28.7 27.0 - 05/18 [place] 31.0 [facility] [place] HEMATOLOGY MCHC 32.9 32.0 - 05/18 [place] 36.0 [facility] [place] [place] HEMATOLOGY Hct 43.3 36.0 - 05/18 48.0 [facility] HEMATOLOGY MCV 87.2 80.0 - 05/18 [place] 98.0 [facility] HEMATOLOGY WBC 6.8 3.7 - 10.4 05/18 [facility] HEMATOLOGY Platelet 215 133 - 450 05/18 [facility] HEMATOLOGY MPV 8.2 7.4 - 10.4 05/18 [facility] HEMATOLOGY RDW 14.5 11.5 - 05/18 [place] 14.5 [facility] HEMATOLOGY Segs 55.6 45.0 - 05/18 [place] 75.0 /2014 [facility] HEMATOLOGY Lymphocytes 32.7 20.0 - 05/18 [place] 40.0 [facility] HEMATOLOGY Monocytes 8.5 2.0 - 12.0 05/18 [facility] HEMATOLOGY Segs-Bands # 3.8 1.5 - 8.1 05/18 [facility] [place] HEMATOLOGY Basophils 0.6 0.0 - 1.0 05/18 [facility] HEMATOLOGY Lymphocytes 2.2 1.0 - 5.5 09/20 [place] # /2014 [facility] HEMATOLOGY Eosinophils 2.6 0.0 - 4.0 05/18 [place]2014 [facility] HEMATOLOGY Eosinophils 0.2 0.0 - 0.5 05/18 [place] # /2014 [facility] HEMATOLOGY Monocytes # 0.6 0.0 - 0.8 05/18 [place] /2014 [facility] IMMUNOLOGY [place]-Hep C Positive Negative 05/18 [facility] as Ab *NA* /2014 [facility] (05/18/15 1:26 PM) Center IMMUNOLOGY [place] HCV [id number] 05/18 [facility] RNA Virload /2014 [facility] IMMUNOLOGY [place] HCV 5.5 05/18 [facility] RNA Log10 [facility] CARDIAC Troponin-I <0.02 0.00 - 05/09 [facility] ENZYMES 0.40 [facility] CHEM PANEL eGFR 90 05/09 Result Comment: The [facility] eGFR is Center calculated using the CKD-EPI [...] PANEL CO2 28 24 - 32 05/09 [facility] CHEM PANEL Calcium Lvl 9.6 8.5 - 10.5 05/09 [place] [facility] CHEM PANEL Chloride Lvl 105 95 - 109 05/[facility] CHEM PANEL Creatinine 0.8 0.5 - 1.4 05/09 [facility] Lvl /2014 [facility] CHEM PANEL Sodium Lvl 139 135 - 145 05/09 [facility] CHEM PANEL Potassium 3.7 3.5 - 5.1 05/09 [facility] Lvl /2014 [facility] CHEM PANEL Glucose Lvl 102 70 - 99 05/09 [facility] CHEM PANEL BUN 7 7 - 22 05/09 [facility] CHEM PANEL AGAP 9.7 10.0 - 05/09 [place] 20.0 /2014 [facility] HEMATOLOGY RDW 14.4 11.5 - 09 [place] 14.5 /2014 [facility] HEMATOLOGY MCHC 32.5 32.0 - 09 [place] 36.0 /2014 [facility] HEMATOLOGY MCH 28.7 27.0 - 09 [place] 31.0 /2014 [facility] HEMATOLOGY Platelet 202 133 - 450 09 [facility] HEMATOLOGY MPV 7.6 7.4 - 10.4 05/09 [facility] HEMATOLOGY MCV 88.2 80.0 - 05/09 [place] 98.0 /2014 [facility] HEMATOLOGY Hct 41.9 36.0 - 05/09 [place] 48.0 /2014 [facility] HEMATOLOGY RBC 4.75 4.20 - 05/09 [place] 5.40 /2014 [facility] HEMATOLOGY Hgb 13.6 12.0 - 05/09 [place] 16.0 /2014 [facility] HEMATOLOGY WBC 5.6 3.7 - 10.4 05/09 [facility] HEMATOLOGY Lymphocytes 2.1 1.0 - 5.5 05/09 [place] # /2014 [facility] HEMATOLOGY Basophils # 0.1 0.0 - 0.2 05/09 s [facility] HEMATOLOGY Eosinophils 0.2 0.0 - 0.5 05/09 [place] # /2014 [facility] HEMATOLOGY Monocytes # 0.4 0.0 - 0.8 05/09 s [facility] HEMATOLOGY Segs 50.8 45.0 - 05/09 [place] 75.0 /2014 [facility] HEMATOLOGY Eosinophils 2.8 0.0 - 4.0 05/09 s [facility] HEMATOLOGY Segs-Bands # 2.9 1.5 - 8.1 05/09 [facility] HEMATOLOGY Basophils 1.1 0.0 - 1.0 05/09 [facility] HEMATOLOGY Monocytes 7.7 2.0 - 12.0 05/09 [facility] HEMATOLOGY Lymphocytes 37.6 20.0 - 05/09 [facility] 40.0 [facility] CARDIAC Troponin-I <0.02 0.00 - 05/02 [facility] ENZYMES 0. [facility] CHEM PANEL Phosphorus 3.2 2.5 - 4.5 05/02 [facility] CHEM PANEL Magnesium 2.1 1.8 - 2.4 05/02 [facility] ELECTROLYT AGAP 12.4 10.0 - 05/02 [facility] ES 20.0 [facility] ELECTROLYT eGFR 68 05/02 Result [facility] Comment: The [facility] eGFR is Center calculated using the CKD-EPI [...] Chloride Lvl 104 95 - 109 05/02 [facility] ELECTROLYT Sodium Lvl 141 135 - 145 05/02 [facility] ELECTROLYT CO2 28 24 - 32 05/02 [facility] ELECTROLYT Calcium Lvl 8.8 8.5 - 10.5 05/02 [place] [facility] ELECTROLYT Potassium 3.4 3.5 - 5.1 05/02 [facility] ELECTROLYT Creatinine 0.9 0.5 - 1.4 05/02 [facility] ELECTROLYT Glucose Lvl 92 70 - 99 05/02 [facility] ELECTROLYT BUN 6 7 - 22 05/02 [facility] HEMATOLOGY MPV 8.0 7.4 - 10.4 05/02 MH [facility] HEMATOLOGY RDW 14.1 11.5 - 05/02 [place] 14.5 /2014 [facility] HEMATOLOGY Platelet 212 133 - 450 09 [facility] HEMATOLOGY MCHC 32.6 32.0 - 05/02 [place] 36.0 /2014 [facility] HEMATOLOGY WBC 8.0 3.7 - 10.4 05/02 [facility] HEMATOLOGY Hct 40.2 36.0 - 05/02 [place] 48.0 /2014 [facility] HEMATOLOGY MCV 87.4 80.0 - 05/02 [place] 98.0 /2014 [facility] HEMATOLOGY Hgb 13.1 12.0 - 05/02 [place] 16.0 /2014 [facility] HEMATOLOGY RBC 4.60 4.20 - 05/02 [place] 5.40 /2014 [facility] HEMATOLOGY MCH 28.5 27.0 - 05/02 [place] 31.0 /2014 [facility] HEMATOLOGY Lymphocytes 26.3 20.0 - 05/02 [place] 40.0 /2014 [facility] HEMATOLOGY Segs 60.9 45.0 - 05/02 [place] 75.0 /2014 [facility] HEMATOLOGY Basophils 1.0 0.0 - 1.0 05/02 [facility] HEMATOLOGY Eosinophils 3.0 0.0 - 4.0 05/02 s /2014 [facility] HEMATOLOGY Monocytes 8.8 2.0 - 12.0 05/02 [facility] HEMATOLOGY Monocytes # 0.7 0.0 - 0.8 05/02 s /2014 [facility] HEMATOLOGY Eosinophils 0.2 0.0 - 0.5 05/02 [place] # /2014 [facility] HEMATOLOGY Lymphocytes 2.1 1.0 - 5.5 05/02 [place] # /2014 [facility] HEMATOLOGY Segs-Bands # 4.9 1.5 - 8.1 05/02 [place] /2014 [facility] HEMATOLOGY Basophils # 0.1 0.0 - 0.2 05/02 a s [facility] URINE AND UA Nitrite Negative Negative 05/02 [facility] STOOL (05/02/15 4:38 PM) /2014 [facility] URINE AND UA WBC 0-2 /HPF None Seen 05/02 [facility] STOOL /HPF /2014 [facility] URINE AND UA Leuk Est Moderate Negative 05/02 [facility] STOOL *ABN* /2014 [facility] (05/02/15 4:38 PM) [place] URINE AND UA RBC None Seen 0 - 2 05/02 [facility] (05/02/15 4:38 PM) /2014 [facility] URINE AND UA Sq Epi Occasional Few /LPF 05/02 [facility] STOOL /LPF [facility] URINE AND UA Bacteria None Seen None Seen 05/02 [place] STOOL (05/02/15 4:38 PM) [facility] URINE AND UA Mucus Rare /LPF None Seen 05/02 [facility] STOOL /LPF /2014 [facility] URINE AND UA Glucose Negative Negative 05/02 [facility] (05/02/15 4:38 PM) /2014 [facility] URINE AND UA Ketones Negative Negative 05/02 [facility] *NA* /2014 [facility] (05/02/15 4:38 PM) [place] URINE AND UA 0.2 0.1 - 1.0 05/02 [facility] Urobilinogen /2014 [facility] URINE AND UA Blood Negative Negative 05/02 [facility] (05/02/15 4:38 PM) /2014 [facility] URINE AND UA Bili Negative Negative 05/02 [facility] *NA* /2014 [facility] (05/02/15 4:38 PM) [place] URINE AND UA Color Yellow Yellow 05/02 [facility] *NA* /2014 [facility] (05/02/15 4:38 PM) [place] URINE AND UA pH 6.0 5.0 - 8.0 05/02 [facility] URINE AND UA Turbidity Slight Cloudy Clear 05/02 [facility] (05/02/15 4:38 PM) [facility] URINE AND UA Protein Negative Negative 05/02 [facility] (05/02/15 4:38 PM) [facility] URINE AND UA Spec Grav 1.006 <=1.030 05/02 [facility] CHEM PANEL Lipase Lvl 188 73 - 393 03/24 [facility] CHEM PANEL eGFR 106 03/24 Result Comment: The [facility] eGFR is calculated using the CKD-EPI formula. [...] PANEL Creatinine 0.7 0.5 - 1.4 03/24 [facility] CHEM PANEL BUN 4 7 - 22 03/24 [facility] CHEM PANEL Potassium 3.2 3.5 - 5.1 03/24 [facility] CHEM PANEL Sodium Lvl 142 135 - 145 03/24 [facility] CHEM PANEL Glucose Lvl 91 70 - 99 03/24 [facility] CHEM PANEL Albumin Lvl 3.5 3.5 - 5.0 03/24 [facility] CHEM PANEL Total 6.6 6.4 - 8.4 03/24 [facility] CHEM PANEL Chloride Lvl 107 95 - 109 03/24 [facility] CHEM PANEL Calcium Lvl 9.1 8.5 - 10.5 03/24 [place] CHEM PANEL CO2 27 24 - 32 03/24 [place] CHEM PANEL AGAP 11.2 10.0 - 03/24 MH 20.0 [facility] CHEM PANEL AST 21 0 - 37 03/24 [facility] CHEM PANEL ALT 34 0 - 65 03/24 [facility] CHEM PANEL Bili Total 0.6 0.2 - 1.3 03/24 [facility] CHEM PANEL Alk Phos 95 39 - 136 03/24 [facility] CHEM PANEL B/C Ratio 6 6 - 25 03/24 [facility] CHEM PANEL A/G Ratio 1.1 0.7 - 1.6 03/24 [facility] CHEM PANEL Globulin 3.1 2.0 - 4.0 03/24 [facility] HEMATOLOGY Monocytes 11.3 2.0 - 12.0 03/24 [facility] HEMATOLOGY Lymphocytes 27.1 20.0 - 07 MH 40.0 /2014 [facility] HEMATOLOGY Eosinophils 5.9 0.0 - 4.0 03/24 [facility] HEMATOLOGY Segs-Bands # 3.3 1.5 - 8.1 03/24 /2014 [facility] HEMATOLOGY Basophils 0.7 0.0 - 1.0 03/24 /2014 [facility] HEMATOLOGY Segs 55.0 45.0 - 03/24 MH 75.0 /2014 [facility] HEMATOLOGY Monocytes # 0.7 0.0 - 0.8 03/24 /2014 [facility] HEMATOLOGY Lymphocytes 1.6 1.0 - 5.5 03/24 MH # /2014 [facility] HEMATOLOGY Eosinophils 0.4 0.0 - 0.5 03/24 MH # /2014 [facility] HEMATOLOGY RBC 4.21 4.20 - 03/24 MH 5.40 /2014 [facility] HEMATOLOGY WBC 5.9 3.7 - 10.4 03/24 /2014 [facility] HEMATOLOGY Platelet 204 133 - 450 03/24 /2014 [facility] HEMATOLOGY MCHC 32.4 32.0 - 03/24 36.0 /2014 [facility] HEMATOLOGY RDW 14.2 11.5 - 03/24 14.5 [facility] MPV 8.6 7.4 - 10.4 03/24 /2014 [facility] Hct 37.2 36.0 - 03/24 MH 48.0 /2014 [facility] HEMATOLOGY MCV 88.3 80.0 - 03/24 98.0 /2014 [facility] HEMATOLOGY Hgb 12.1 12.0 - 03/24 MH 16.0 [facility] MCH 28.6 27.0 - 03/24 31.0 /2014 [facility] URINE AND Occult Bld Negative Negative 03/23 [facility] (03/23/15 1:14 PM) /2014 [facility] est CARDIAC CK MB 0.8 0.5 - 3.6 03/23 ENZYMES /2014 [facility] CARDIAC Total CK 70 12 - 191 03/23 ENZYMES /2014 [facility] CARDIAC CK MB Index 1.1 0.0 - 2.5 03/23 ENZYMES [facility] CHEM PANEL eGFR 106 03/23 Result Comment: The [facility] eGFR is calculated using the CKD-EPI formula. [...] PANEL CO2 27 24 - 32 03/23 [facility] CHEM PANEL Calcium Lvl 9.2 8.5 - 10.5 03/23 [facility] CHEM PANEL Chloride Lvl 108 95 - 109 03/23 [facility] CHEM PANEL Sodium Lvl 142 135 - 145 03/23 [facility] CHEM PANEL Potassium 3.5 3.5 - 5.1 03/23 Lvl /2014 [facility] CHEM PANEL Creatinine 0.7 0.5 - 1.4 03/23 Lvl /2014 [facility] CHEM PANEL BUN 8 7 - 22 03/23 [facility] CHEM PANEL Glucose Lvl 101 70 - 99 03/23 [facility] CHEM PANEL AGAP 10.5 10.0 - 03/23 MH 20.0 [facility] HEMATOLOGY Lymphocytes 1.3 1.0 - 5.5 03/23 MH # /2014 [facility] HEMATOLOGY Segs-Bands # 3.4 1.5 - 8.1 03/23 [facility] HEMATOLOGY Basophils 0.6 0.0 - 1.0 03/23 [facility] HEMATOLOGY Eosinophils 4.0 0.0 - 4.0 03/23 [facility] HEMATOLOGY Eosinophils 0.2 0.0 - 0.5 03/23 # /2014 [facility] HEMATOLOGY Monocytes # 0.6 0.0 - 0.8 03/23 [facility] HEMATOLOGY Monocytes 11.0 2.0 - 12.0 03/23 [facility] HEMATOLOGY Lymphocytes 23.6 20.0 - 03/23 MH 40.0 /2014 [facility] HEMATOLOGY Segs 60.8 45.0 - 03/23 MH 75.0 [facility] HEMATOLOGY MPV 8.3 7.4 - 10.4 03/23 [facility] HEMATOLOGY Platelet 196 133 - 450 03/23 [facility] HEMATOLOGY RDW 14.6 11.5 - 03/23 MH 14.5 [facility] HEMATOLOGY MCV 88.0 80.0 - 03/23 MH 98.0 /2014 [facility] HEMATOLOGY MCH 28.7 27.0 - 03/23 MH 31.0 /2014 [facility] HEMATOLOGY Hct 34.7 36.0 - 03/23 MH 48.0 /2014 [facility] HEMATOLOGY MCHC 32.6 32.0 - 03/23 MH 36.0 /2014 [facility] HEMATOLOGY Hgb 11.3 12.0 - 03/23 MH 16.0 /2014 [facility] HEMATOLOGY RBC 3.94 4.20 - 03/23 MH 5.40 /2014 [facility] HEMATOLOGY WBC 5.6 3.7 - 10.4 03/23 [facility] CARDIAC CK MB Index 1.6 0.0 - 2.5 03/22 ENZYMES [facility] CARDIAC CK MB 1.0 0.5 - 3.6 03/22 ENZYMES [facility] CARDIAC Total CK 64 12 - 191 03/22 ENZYMES [facility] CHEM PANEL eGFR 111 03/22 Result Comment: The [facility] eGFR is calculated using the CKD-EPI formula. [...] Calcium Lvl 8.7 8.5 - 10.5 03/22 [facility] CHEM PANEL Sodium Lvl 144 135 - 145 03/22 [facility] CHEM PANEL Potassium 3.9 3.5 - 5.1 03/22 MH Lvl [facility] CHEM PANEL Chloride Lvl 112 95 - 109 03/22 [facility] CHEM PANEL CO2 27 24 - 32 03/22 [facility] CHEM PANEL Glucose Lvl 94 70 - 99 03/22 [facility] CHEM PANEL BUN 8 7 - 22 03/22 [facility] CHEM PANEL Creatinine 0.6 0.5 - 1.4 03/22 Lvl /2014 [facility] CHEM PANEL AGAP 8.9 10.0 - 03/22 MH 20.0 /2014 [facility] HEMATOLOGY Eosinophils 0.2 0.0 - 0.5 03/22 MH # /2015 [facility] HEMATOLOGY Monocytes # 0.5 0.0 - 0.8 03/22 /2014 [facility] HEMATOLOGY Basophils 0.9 0.0 - 1.0 03/22 /2014 [facility] HEMATOLOGY Monocytes 11.2 2.0 - 12.0 03/22 /2014 [facility] HEMATOLOGY Segs-Bands # 2.1 1.5 - 8.1 03/22 MH /2014 [facility] HEMATOLOGY Eosinophils 3.7 0.0 - 4.0 03/22 [facility] HEMATOLOGY Lymphocytes 1.6 1.0 - 5.5 03/22 MH # /2014 [facility] HEMATOLOGY Segs 48.6 45.0 - 03/22 MH 75.0 /2014 [facility] HEMATOLOGY Lymphocytes 35.6 20.0 - 03/22 MH 40.0 /2014 [facility] HEMATOLOGY MPV 8.9 7.4 - 10.4 03/22 /2014 [facility] HEMATOLOGY WBC 4.4 3.7 - 10.4 03/22 MH /2014 [facility] HEMATOLOGY MCH 29.9 27.0 - 03/22 MH 31.0 /2014 [facility] HEMATOLOGY MCV 86.5 80.0 - 03/22 MH 98.0 /2014 [facility] HEMATOLOGY MCHC 34.6 32.0 - 03/22 MH 36.0 /2014 [facility] HEMATOLOGY Hgb 11.7 12.0 - 03/22 MH 16.0 /2014 [facility] HEMATOLOGY RBC 3.92 4.20 - 03/22 MH 5.40 /2014 [facility] HEMATOLOGY Hct 33.9 36.0 - 03/22 MH 48.0 /2014 [facility] HEMATOLOGY RDW 14.6 11.5 - 03/22 MH 14.5 /2014 [facility] HEMATOLOGY Platelet 176 133 - 450 03/22 [facility] CARDIAC CK MB Index 1.6 0.0 - 2.5 03/22 ENZYMES /2014 [facility] CARDIAC Total CK 77 12 - 191 03/22 ENZYMES /2014 [facility] CARDIAC CK MB 1.2 0.5 - 3.6 03/22 ENZYMES /2014 [facility] CHEM PANEL Lactic Acid 1.4 0.5 - 2.2 03/22 Lvl /2014 [facility] CARDIAC Troponin-I <0.02 0.00 - 03/21 MH ENZYMES 0.40 /2014 [facility] CHEM PANEL Globulin 3.3 2.0 - 4.0 03/21 MH /2014 [facility] CHEM PANEL A/G Ratio 1.1 0.7 - 1.6 03/21 /2014 [facility] CHEM PANEL B/C Ratio 16 6 - 25 03/21 [facility] CHEM PANEL Alk Phos 105 39 - 136 03/21 MH /2014 [facility] CHEM PANEL AST 25 0 - 37 03/21 [facility] CHEM PANEL Bili Total 0.5 0.2 - 1.3 03/21 [facility] CHEM PANEL ALT 32 0 - 65 03/21 [facility] CHEM PANEL Albumin Lvl 3.7 3.5 - 5.0 03/21 [facility] CHEM PANEL Total 7.0 6.4 - 8.4 03/21 MH Protein /2014 [facility] HEMATOLOGY Basophils # 0.0 0.0 - 0.2 03/21 [facility] HEMATOLOGY INR 1.04 0.85 - 03/21 MH 1.17 /2014 [facility] HEMATOLOGY PT 13.6 12.0 - 03/21 MH 14.7 /2014 [facility] HEMATOLOGY PTT 35.2 22.9 - 03/21 MH 35.8 /2014 [facility] CARDIAC BNP 6 <=100 03/21 MH ENZYMES pg/mL /2014 [facility] CARDIAC Troponin-I <0.02 0.00 - 03/11 MH ENZYMES 0.40 /2014 [facility] CARDIAC BNP 31 <=100 03/11 MH ENZYMES pg/mL /2014 [facility] CARDIAC CK MB 0.8 0.5 - 3.6 03/11 MH ENZYMES /2014 [facility] CARDIAC Total CK 70 12 - 191 03/11 MH ENZYMES /2014 [facility] CARDIAC CK MB Index 1.1 0.0 - 2.5 03/11 MH ENZYMES /2014 [facility] CHEM PANEL eGFR 106 03/11 Result Comment: The [facility] eGFR is calculated using the CKD-EPI formula. [...] Alk Phos 99 39 - 136 03/11 [facility] CHEM PANEL Bili Total 0.6 0.2 - 1.3 03/11 [place] CHEM PANEL B/C Ratio 11 6 - 25 03/11 [facility] CHEM PANEL AGAP 9.4 10.0 - 03/11 MH 20.0 [facility] CHEM PANEL Globulin 3.1 2.0 - 4.0 03/11 [facility] CHEM PANEL A/G Ratio 1.1 0.7 - 1.6 03/11 [facility] CHEM PANEL Glucose Lvl 73 70 - 99 03/11 [facility] CHEM PANEL BUN 8 7 - 22 03/11 [place] CHEM PANEL Creatinine 0.7 0.5 - 1.4 03/11 [place] CHEM PANEL Sodium Lvl 143 135 - 145 03/11 [facility] CHEM PANEL Potassium 3.4 3.5 - 5.1 03/11 [place] CHEM PANEL CO2 28 24 - 32 03/11 [facility] CHEM PANEL Chloride Lvl 109 95 - 109 03/11 [facility] CHEM PANEL Calcium Lvl 8.9 8.5 - 10.5 03/11 [facility] CHEM PANEL Total 6.5 6.4 - 8.4 03/11 [place] CHEM PANEL Albumin Lvl 3.4 3.5 - 5.0 03/11 [facility] CHEM PANEL ALT 30 0 - 65 03/11 [facility] CHEM PANEL AST 21 0 - 37 03/11 [facility] HEMATOLOGY RDW 15.1 11.5 - 03/11 MH 14. [facility] HEMATOLOGY MCHC 33.1 32.0 - 03/11 MH 36.0 [facility] HEMATOLOGY Platelet 190 133 - 450 03/11 [facility] HEMATOLOGY MPV 8.1 7.4 - 10.4 03/11 [facility] HEMATOLOGY Hct 34.6 36.0 - 03/11 MH 48.0 /2014 [facility] HEMATOLOGY Hgb 11.5 12.0 - 03/11 MH 16.0 /2014 [facility] HEMATOLOGY MCH 28.8 27.0 - 03/11 MH 31.0 /2014 [facility] HEMATOLOGY MCV 86.9 80.0 - 03/11 MH 98.0 /2014 [facility] HEMATOLOGY RBC 3.98 4.20 - 03/11 MH 5.40 /2014 [facility] HEMATOLOGY WBC 6.5 3.7 - 10.4 07/ /2014 [facility] HEMATOLOGY PTT 32.8 22.9 - 03/11 MH 35.8 /2014 [facility] HEMATOLOGY PT 13.3 12.0 - 03/11 MH 14.7 /2014 [facility] HEMATOLOGY INR 1.01 0.85 - 03/11 MH 1.17 /2014 [facility] HEMATOLOGY Basophils # 0.0 0.0 - 0.2 03/11 /2014 [facility] HEMATOLOGY Segs-Bands # 3.7 1.5 - 8.1 03/11 /2014 [facility] HEMATOLOGY Eosinophils 0.2 0.0 - 0.5 03/11 # /2014 [facility] HEMATOLOGY Monocytes # 0.6 0.0 - 0.8 03/11 /2014 [facility] HEMATOLOGY Lymphocytes 1.9 1.0 - 5.5 03/11 MH # /2014 [facility] HEMATOLOGY Segs 56.9 45.0 - 03/11 MH 75.0 /2014 [facility] HEMATOLOGY Eosinophils 2.7 0.0 - 4.0 03/11 /2014 [facility] HEMATOLOGY Basophils 0.4 0.0 - 1.0 03/11 /2014 [facility] HEMATOLOGY Monocytes 9.9 2.0 - 12.0 03/11 /2014 [facility] HEMATOLOGY Lymphocytes 30.1 20.0 - 03/11 40.0 /2014 [facility] CARDIAC Troponin-I <0.02 0.00 - 07/08 [place] ENZYMES 0.40 /2014 [facility] CARDIAC Troponin-I <0.02 0.00 - 07/08 [place] ENZYMES 0.40 /2014 [facility] CHEM PANEL A/G Ratio 1.1 0.7 - 1.6 07/ /2014 [facility] CHEM PANEL Globulin 3.5 2.0 - 4.0 07/08 /2014 [facility] CHEM PANEL Bili 0.5 0.0 - 1.0 07/08 [place] Indirect /2014 [facility] CHEM PANEL Bili Direct 0.1 0.0 - 0.3 07/ [facility] CHEM PANEL ALT 25 0 - 65 03/05 [facility] CHEM PANEL AST 21 0 - 37 03/05 [facility] CHEM PANEL Albumin Lvl 3.7 3.5 - 5.0 03/05 [facility] CHEM PANEL Alk Phos 119 39 - 136 03/05 [facility] CHEM PANEL Bili Total 0.6 0.2 - 1.3 03/05 [facility] CHEM PANEL Total 7.2 6.4 - 8.4 03/05 [facility] Protein [facility] CHEM PANEL Lipase Lvl 221 73 - 393 03/05 [facility] ELECTROLYT AGAP 12.6 10.0 - 07 [facility] ES 20.0 /2014 [facility] ELECTROLYT eGFR 78 03/05 <sup>1</sup>R [facility] Medical Comment: The Center eGFR is calculated [...] Calcium Lvl 9.6 8.5 - 10.5 03/05 [facility] ELECTROLYT CO2 29 24 - 32 03/05 [facility] ELECTROLYT Potassium 3.6 3.5 - 5.1 03/05 [facility] ELECTROLYT Chloride Lvl 103 95 - 109 03/05 [facility] ELECTROLYT Sodium Lvl 141 135 - 145 03/05 [facility] ELECTROLYT Creatinine 0.8 0.5 - 1.4 07 [facility] ES Lvl /2014 [facility] ELECTROLYT BUN 9 7 - 22 03/05 [facility] ELECTROLYT Glucose Lvl 96 70 - 99 03/05 <sup>2</sup>I [facility] nterpretive Medical Data: Adult Center reference range values reflect the clinical guidelines
of the [place] [employer]. HEMATOLOGY Lymphocytes 2.6 1.0 - 5.5 03[place]05 [place] # /2014 [facility] HEMATOLOGY Monocytes # 0.9 0.0 - 0.8 03/05 [facility] HEMATOLOGY Basophils 0.7 0.0 - 1.0 / [facility] HEMATOLOGY Eosinophils 1.7 0.0 - 4.0 03/05 [facility] HEMATOLOGY Segs-Bands # 6.7 1.5 - 8.1 03/05 [facility] HEMATOLOGY Lymphocytes 25.0 20.0 - 0708 [place] 40.0 [facility] HEMATOLOGY Segs 64.3 45.0 - 0708 [place] 75.0 [facility] HEMATOLOGY Monocytes 8.3 2.0 - 12.0 03/05 [facility] HEMATOLOGY Eosinophils 0.2 0.0 - 0.5 03/05 s # [facility] HEMATOLOGY Basophils # 0.1 0.0 - 0.2 03/05 [facility] HEMATOLOGY MCV 87.7 80.0 - 07/08 98.0 /2014 [facility] HEMATOLOGY Hct 39.7 36.0 - 0708 [place] 48.0 [facility] HEMATOLOGY MPV 8.0 7.4 - 10.4 03/05 [facility] HEMATOLOGY Platelet 216 133 - 450 07 [facility] HEMATOLOGY RDW 14.6 11.5 - 07/08 [place] 14.5 [facility] HEMATOLOGY MCHC 32.4 32.0 - 07/08 [place] 36.0 [facility] HEMATOLOGY MCH 28.4 27.0 - 07/08 [place] 31.0 /2014 [facility] HEMATOLOGY WBC 10.5 3.7 - 10.4 07/ [facility] HEMATOLOGY RBC 4.53 4.20 - 07/08 MH [place] 5.40 /2014 [facility] HEMATOLOGY Hgb 12.9 12.0 - 07/08 [facility] 16.0 /2015 [facility] CHEM PANEL Magnesium 2.0 1.8 - 2.4 02/25 MH Lvl /2014 [facility] CHEM PANEL Phosphorus 3.6 2.5 - 4.5 02/25 [facility] CHEM PANEL eGFR 106 02/25 <sup>1</sup>R esult [facility] Comment: The eGFR is calculated using the [...] PANEL AST 17 0 - 37 02/25 [facility] CHEM PANEL Albumin Lvl 3.3 3.5 - 5.0 02/25 [facility] CHEM PANEL A/G Ratio 1.1 0.7 - 1.6 02/25 [facility] CHEM PANEL Total 6.3 6.4 - 8.4 02/25 [facility] CHEM PANEL ALT 21 0 - 65 02/25 [facility] CHEM PANEL Globulin 3.0 2.0 - 4.0 02/25 [facility] CHEM PANEL Bili Total 0.5 0.2 - 1.3 02/25 [facility] CHEM PANEL Alk Phos 119 39 - 136 02/25 [facility] CHEM PANEL B/C Ratio 11 6 - 25 02/25 [facility] CHEM PANEL Calcium Lvl 9.1 8.5 - 10.5 02/25 [facility] CHEM PANEL Glucose Lvl 99 70 - 99 02/25 <sup>3</sup>I nterpretive [facility] Data: Adult reference range values reflect the clinical guidelines
of the [employer]. CHEM PANEL BUN 8 7 - 22 02/25 [facility] CHEM PANEL Sodium Lvl 140 135 - 145 02/25 [facility] CHEM PANEL Creatinine 0.7 0.5 - 1.4 02/25 Lv [facility] CHEM PANEL AGAP 8.9 10.0 - 02/25 MH 20.0 /2014 [facility] CHEM PANEL Chloride Lvl 107 95 - 109 02/25 [facility] CHEM PANEL CO2 28 24 - 32 02/25 [facility] CHEM PANEL Potassium 3.9 3.5 - 5.1 02/25 Lvl [facility] HEMATOLOGY Platelet 216 133 - 450 02/25 [facility] HEMATOLOGY MPV 8.8 7.4 - 10.4 02/25 [facility] HEMATOLOGY RDW 14.9 11.5 - 02/25 MH 14. /2014 [facility] HEMATOLOGY WBC 5.9 3.7 - 10.4 02/25 [facility] HEMATOLOGY MCV 88.4 80.0 - 02/25 MH 98.0 /2014 [facility] HEMATOLOGY Hct 37.2 36.0 - 02/25 MH 48.0 /2014 [facility] HEMATOLOGY MCH 28.6 27.0 - 02/25 MH 31.0 /2014 [facility] HEMATOLOGY MCHC 32.4 32.0 - 02/25 MH 36.0 /2014 [facility] HEMATOLOGY RBC 4.21 4.20 - 02/25 MH 5.40 /2014 [facility] HEMATOLOGY Hgb 12.0 12.0 - 02/25 MH 16.0 /2014 [facility] HEMATOLOGY Lymphocytes 31.9 20.0 - 02/25 MH 40.0 /2014 [facility] HEMATOLOGY Basophils 0.8 0.0 - 1.0 02/25 [facility] HEMATOLOGY Segs-Bands # 3.1 1.5 - 8.1 02/25 [facility] HEMATOLOGY Monocytes 11.6 2.0 - 12.0 02/25 [facility] HEMATOLOGY Eosinophils 2.9 0.0 - 4.0 02/25 [facility] HEMATOLOGY Segs 52.8 45.0 - 02/25 MH 75.0 /2014 [facility] HEMATOLOGY Monocytes # 0.7 0.0 - 0.8 02/25 [facility] HEMATOLOGY Lymphocytes 1.9 1.0 - 5.5 02/25 MH /2014 [facility] HEMATOLOGY Eosinophils 0.2 0.0 - 0.5 02/25 MH # /2014 [facility] CARDIAC Total CK 74 12 - 191 02/25 [facility] ENZYMES /2014 [facility] CARDIAC CK MB Index 1.2 0.0 - 2.5 02/25 [facility] ENZYMES /2014 [facility] CARDIAC Troponin-I <0.02 0.00 - 02/25 MH ENZYMES 0.40 [facility] CARDIAC CK MB 0.9 0.5 - 3.6 02/25 [facility] ENZYMES /2014 [facility] CARDIAC Troponin-I <0.02 0.00 - 02/24 MH ENZYMES 0.40 [facility] CARDIAC CK MB 0.7 0.5 - 3.6 02/24 MH ENZYMES /2014 [facility] CARDIAC Total CK 68 - 191 02/24 MH ENZYMES /2014 [facility] CARDIAC CK MB Index 1.0 0.0 - 2.5 02/24 MH ENZYMES /2014 [facility] CARDIAC CK MB Index 0.9 0.0 - 2.5 02/24 MH ENZYMES /2014 [facility] CARDIAC Troponin-I <0.02 0.00 - 02/24 MH ENZYMES 0.40 [facility] CARDIAC CK MB 0.7 0.5 - 3.6 02/24 MH ENZYMES /2014 [facility] CARDIAC Total CK 76 - 191 02/24 MH ENZYMES /2014 [facility] CHEM PANEL eGFR 90 02/24 <sup>2</sup>R esult [facility] Comment: The eGFR is calculated using the [...] PANEL Globulin 3.1 2.0 - 4.0 02/24 [facility] CHEM PANEL Alk Phos 128 39 - 136 02/24 [facility] CHEM PANEL Bili Total 0.3 0.2 - 1.3 02/24 [facility] CHEM PANEL A/G Ratio 1.1 0.7 - 1.6 02/24 [facility] CHEM PANEL AGAP 7.3 10.0 - 02/24 MH 20.0 /2014 [facility] CHEM PANEL B/C Ratio 12 6 - 25 02/24 [facility] CHEM PANEL Creatinine 0.8 0.5 - 1.4 02/24 MH l [facility] CHEM PANEL Sodium Lvl 140 135 - 145 02/24 [facility] CHEM PANEL Glucose Lvl 88 70 - 99 02/24 <sup>4</sup>I nterpretive [facility] Data: Adult reference range values reflect the clinical guidelines
of the [employer]. CHEM PANEL Potassium 3.3 3.5 - 5.1 02/24 MH [facility] CHEM PANEL Chloride Lvl 106 95 - 109 02/24 [facility] CHEM PANEL BUN 10 7 - 22 02/24 [facility] CHEM PANEL AST 15 0 - 37 02/24 [facility] CHEM PANEL ALT 22 0 - 65 02/24 [facility] CHEM PANEL Calcium Lvl 8.9 8.5 - 10.5 02/24 [facility] CHEM PANEL CO2 30 24 - 32 02/24 [facility] CHEM PANEL Total 6.6 6.4 - 8.4 02/24 [facility] CHEM PANEL Albumin Lvl 3.5 3.5 - 5.0 02/24 [facility] HEMATOLOGY Segs 55.9 45.0 - 02/24 MH 75.0 [facility] HEMATOLOGY Lymphocytes 28.7 20.0 - 02/24 MH 40.0 [facility] HEMATOLOGY Segs-Bands # 3.7 1.5 - 8.1 02/24 [facility] HEMATOLOGY Basophils 0.7 0.0 - 1.0 02/24 [facility] HEMATOLOGY Lymphocytes 1.9 1.0 - 5.5 02/24 MH /2014 [facility] HEMATOLOGY Eosinophils 2.2 0.0 - 4.0 02/24 [facility] HEMATOLOGY Monocytes 12.5 2.0 - 12.0 02/24 [facility] HEMATOLOGY Basophils # 0.0 0.0 - 0.2 02/24 [facility] HEMATOLOGY Eosinophils 0.1 0.0 - 0.5 02/24 MH # /2015 [facility] HEMATOLOGY Monocytes # 0.8 0.0 - 0.8 02/24 MH /2014 [facility] HEMATOLOGY MPV 8.8 7.4 - 10.4 02/24 /2014 [facility] MCH 28.1 27.0 - 02/24 MH 31.0 /2014 [facility] HEMATOLOGY RDW 14.8 11.5 - 02/24 MH 14.5 /2014 [facility] MCHC 32.2 32.0 - 02/24 MH 36.0 /2014 [facility] Platelet 207 133 - 450 02/24 /2014 [facility] HEMATOLOGY Hgb 11.4 12.0 - 02/24 MH 16.0 /2014 [facility] HEMATOLOGY RBC 4.04 4.20 - 02/24 MH 5.40 /2014 [facility] WBC 6.5 3.7 - 10.4 02/24 /2014 [facility] Hct 35.3 36.0 - 02/24 MH 48.0 /2014 [facility] MCV 87.2 80.0 - 02/24 MH 98.0 /2014 [facility] CARDIAC BNP 6 <=100 02/17 <sup>5</sup>I ENZYMES pg/mL /2014 nterpretive [facility] Data: Elevated results are in line with increasing severity of
con gestive heart failure. Minor elevations between 100 and 300
may be seen with Myocardial Ischemia, Sodium retaining drugs,
an d compensated/t reated heart failure. CARDIAC Troponin-I <0.02 0.00 - 02/17 ENZYMES 0.40 /2014 [facility] CARDIAC CK MB 1.0 0.5 - 3.6 02/17 ENZYMES /2014 [facility] CARDIAC Total CK 77 12 - 191 02/17 ENZYMES /2014 [facility] CHEM PANEL Magnesium 1.8 1.8 - 2.4 02/17 Lvl /2014 [facility] CHEM PANEL eGFR 111 02/17 <sup>1</sup>R MH /2014 esult [facility] Comment: The eGFR is calculated using the [...] Chloride Lvl 111 95 - 109 02/17 [facility] CHEM PANEL Potassium 3.8 3.5 - 5.1 02/17 Lvl [facility] CHEM PANEL Sodium Lvl 144 135 - 145 02/17 [facility] CHEM PANEL Calcium Lvl 8.6 8.5 - 10.5 02/17 [facility] CHEM PANEL AGAP 11.8 10.0 - 02/17 MH 20.0 [facility] CHEM PANEL CO2 25 24 - 32 02/17 [facility] CHEM PANEL Creatinine 0.6 0.5 - 1.4 02/17 Lvl [facility] CHEM PANEL BUN 6 7 - 22 02/17 [facility] CHEM PANEL Glucose Lvl 72 70 - 99 02/17 <sup>3</sup>I nterpretive [facility] Data: Adult reference range values reflect the clinical guidelines
of the [employer]. HEMATOLOGY Hgb 11.5 12.0 - 02/17 MH 16.0 [facility] LIPIDS HDL 51 >=61 mg/dL 02/17 [facility] LIPIDS VLDL 17 02/17 [facility] LIPIDS LDL 96 <=99 mg/dL 02/17 (Calculated) [facility] LIPIDS Chol 164 <=199 02/17 mg/dL /2014 [facility] LIPIDS Trig 84 <=149 02/17 mg/dL /2014 [facility] LIPIDS CHD Risk 3.22 3.90 - 02/17 MH 5.80 /2014 [facility] SPECIAL Hgb A1C 5.8 <=5.6 % 02/17 CHEMISTRY /2014 [facility] CARDIAC Troponin-I <0.02 0.00 - 02/17 ENZYMES 0.40 /2014 [facility] CARDIAC Total CK 92 12 - 191 02/17 ENZYMES /2014 [facility] CARDIAC CK MB 1.2 0.5 - 3.6 02/17 ENZYMES /2014 [facility] CARDIAC CK MB 1.2 0.5 - 3.6 02/16 ENZYMES /2014 [facility] CARDIAC CK MB Index 1.3 0.0 - 2.5 02/16 ENZYMES /2014 [facility] CARDIAC Total CK 93 12 - 191 02/16 ENZYMES /2014 [facility] CARDIAC Troponin-I <0.02 0.00 - 02/16 ENZYMES 0.40 /2014 [facility] CARDIAC BNP 4 <=100 02/16 <sup>6</sup>I EN[place]YM[place] pg/mL /2014 nterpretive [facility] Data: Elevated results are in line with increasing severity of
con gestive heart failure. Minor elevations between 100 and 300
may be seen with Myocardial Ischemia, Sodium retaining drugs,
an d compensated/t reated heart failure. CHEM PANEL Lipase Lvl 307 73 - 393 02/16 [facility] CHEM PANEL A/G Ratio 1.0 0.7 - 1.6 02/16 [facility] CHEM PANEL Globulin 3.6 2.0 - 4.0 02/16 [facility] CHEM PANEL Bili 0.4 0.0 - 1.0 02/16 [facility] CHEM PANEL Bili Direct 0.1 0.0 - 0.3 02/16 [facility] CHEM PANEL Bili Total 0.5 0.2 - 1.3 02/16 [facility] CHEM PANEL Total 7.3 6.4 - 8.4 02/16 Protein [facility] CHEM PANEL Alk Phos 150 39 - 136 02/16 [facility] CHEM PANEL AST 15 0 - 37 02/16 [facility] CHEM PANEL ALT 21 0 - 65 02/16 [facility] CHEM PANEL Albumin Lvl 3.7 3.5 - 5.0 02/16 [facility] CHEM PANEL Phosphorus 3.1 2.5 - 4.5 02/16 [facility] CHEM PANEL Magnesium 1.9 1.8 - 2.4 02/16 Lvl /2014 [facility] CHEM PANEL eGFR 90 02/16 <sup>2</sup>R esult [facility] Comment: The eGFR is calculated using the [...] Calcium Lvl 9.0 8.5 - 10.5 02/16 [facility] CHEM PANEL CO2 28 24 - 32 02/16 [facility] CHEM PANEL Chloride Lvl 107 95 - 109 02/16 [facility] CHEM PANEL Creatinine 0.8 0.5 - 1.4 02/16 [facility] CHEM PANEL BUN 11 7 - 22 02/16 [facility] CHEM PANEL Potassium 3.5 3.5 - 5.1 02/16 [facility] CHEM PANEL Sodium Lvl 139 135 - 145 02/16 [facility] CHEM PANEL Glucose Lvl 76 70 - 99 02/16 <sup>4</sup>I nterpretive [facility] Data: Adult reference range values reflect the clinical guidelines
of the [employer]. CHEM PANEL AGAP 7.5 10.0 - 02/16 MH 20.0 [facility] HEMATOLOGY Eosinophils 3.3 0.0 - 4.0 02/16 [facility] HEMATOLOGY Monocytes 9.1 2.0 - 12.0 02/16 [facility] HEMATOLOGY Lymphocytes 28.9 20.0 - 02/16 MH 40.0 /2014 [facility] HEMATOLOGY Segs 58.3 45.0 - 02/16 MH 75.0 [facility] HEMATOLOGY Segs-Bands # 3.8 1.5 - 8.1 02/16 [facility] HEMATOLOGY Basophils 0.4 0.0 - 1.0 02/16 [facility] HEMATOLOGY Monocytes # 0.6 0.0 - 0.8 02/16 [facility] HEMATOLOGY Lymphocytes 1.9 1.0 - 5.5 02/16 MH /2014 [facility] HEMATOLOGY Eosinophils 0.2 0.0 - 0.5 02/16 # /2015 [facility] HEMATOLOGY Basophils # 0.0 0.0 - 0.2 02/16 /2014 [facility] HEMATOLOGY PTT 36.0 22.9 - 02/16 <sup>8</sup>I 35.8 /2014 nterpretive [facility] Data: Heparin Therapeutic Range: 57 - 92 Seconds HEMATOLOGY PT 12.9 12.0 - 02/16 14.7 /2014 [facility] HEMATOLOGY INR 0.97 0.85 - 02/16 <sup>7</sup>I 1.17 /2014 nterpretive [facility] Data: RECOMMENDED RANGES FOR PROTIME INR:
2.0-3.0 for most medical and surgical thromboemboli c states.
2.5-3.5 for artificial heart valves and recurrent embolism.<br/ >
INR SHOULD BE USED ONLY FOR PATIENTS ON STABLE ANTICOAGULANT THERAPY. HEMATOLOGY Platelet 225 133 - 450 02/16 /2014 [facility] RDW 14.7 11.5 - 02/16 14.5 /2014 [facility] HEMATOLOGY MPV 8.7 7.4 - 10.4 02/16 /2014 [facility] HEMATOLOGY MCHC 32.6 32.0 - 02/16 36.0 /2014 [facility] HEMATOLOGY Hct 39.5 36.0 - 02/16 48.0 /2014 [facility] HEMATOLOGY MCV 87.3 80.0 - 02/16 98.0 /2014 [facility] MCH 28.4 27.0 - 02/16 31.0 /2014 [facility] RBC 4.52 4.20 - 02/16 5.40 /2014 [facility] HEMATOLOGY Hgb 12.9 12.0 - 02/16 16.0 /2014 [facility] HEMATOLOGY WBC 6.5 3.7 - 10.4 02/16 /2014 [facility] MYOGLOBIN Myoglobin 46 25 - 72 02/16 /2014 [facility] CARDIAC BNP 15 <=100 12/22 <sup>3</sup>I EN[place]YM[place] pg/mL /2013 nterpretive [facility] Data: Elevated results are in line with increasing severity of
con gestive heart failure. Minor elevations between 100 and 300
may be seen with Myocardial Ischemia, Sodium retaining drugs,
an d compensated/t reated heart failure. CARDIAC Troponin-I <0.02 0.00 - 12/22 ENZYMES 0.40 /2013 [facility] CARDIAC Total CK 80 12 - 191 12/22 ENZYMES [facility] CARDIAC CK MB <0.5 0.5 - 3.6 12/22 ENZYMES [facility] CARDIAC CK MB Index <0.6 0.0 - 2.5 12/22 ENZYMES [facility] CHEM PANEL eGFR 112 12/22 <sup>1</sup>R esult [facility] Comment: The eGFR is calculated using the [...] PANEL Globulin 3.6 2.0 - 4.0 12/22 [facility] CHEM PANEL B/C Ratio 17 6 - 25 12/22 [facility] CHEM PANEL A/G Ratio 1.1 0.7 - 1.6 12/22 [facility] CHEM PANEL Glucose Lvl 101 70 - 99 12/22 <sup>2</sup>I nterpretive [facility] Data: Adult reference range values reflect the clinical guidelines
of the [employer]. CHEM PANEL ALT 34 0 - 65 12/22 [facility] CHEM PANEL Albumin Lvl 3.9 3.5 - 5.0 12/22 [facility] CHEM PANEL Alk Phos 89 39 - 136 12/22 [facility] CHEM PANEL AST 22 0 - 37 12/22 [facility] CHEM PANEL Bili Total 0.6 0.2 - 1.3 12/22 [facility] CHEM PANEL AGAP 5.5 10.0 - 12/22 MH 20.0 /2013 [facility] CHEM PANEL Creatinine 0.6 0.5 - 1.4 12/22 [facility] CHEM PANEL BUN 10 7 - 22 12/22 [facility] CHEM PANEL Potassium 3.5 3.5 - 5.1 12/22 [facility] CHEM PANEL Sodium Lvl 140 135 - 145 12/22 [facility] CHEM PANEL Chloride Lvl 109 95 - 109 12/22 [facility] CHEM PANEL CO2 29 24 - 32 12/22 [facility] CHEM PANEL Total 7.5 6.4 - 8.4 12/22 [facility] CHEM PANEL Calcium Lvl 9.2 8.5 - 10.5 12/22 [facility] DRUG U Opiate Scr Negative Negative 12/22 SCREEN *NA* [facility] (12/22/13 4:17 PM) DRUG U Phencyc Negative Negative 12/22 SCREEN Scr *NA* [facility] (12/22/13 4:17 PM) DRUG UDS Note See Note 4 12/22 <sup>4</sup>I MH SCREEN *NA* nterpretive [facility] (12/22/13 4:17 PM) Data: Drugs reported as positive have not been confirmed by a second
sd thod and should be used for medical [...] Negative Negative 12/22 SCREEN Scr *NA* /2013 [facility] (12/22/13 4:17 PM) DRUG U Keyla Scr Negative Negative 12/22 SCREEN *NA* [facility] (12/22/13 4:17 PM) DRUG U Amph Scr Negative Negative 12/22 SCREEN *NA* [facility] (12/22/13 4:17 PM) DRUG U Cannab Scr Negative Negative 12/22 SCREEN *NA* [facility] (12/22/13 4:17 PM) DRUG U Cocaine Negative Negative 12/22 SCREEN Scr *NA* [facility] (12/22/13 4:17 PM) HEMATOLOGY PTT 35.2 22.9 - 12/22 <sup>6</sup>I 35.8 /2013 nterpretive [facility] Data: Heparin Therapeutic Range: 57 - 92 Seconds HEMATOLOGY PT 12.2 12.0 - 12/22 14.7 [facility] HEMATOLOGY INR 0.91 0.85 - 12/22 <sup>5</sup>I 1.17 nterpretive [facility] Data: RECOMMENDED RANGES FOR PROTIME INR:
2.0-3.0 for most medical and surgical thromboemboli c states.
2.5-3.5 for artificial heart valves and recurrent embolism.<br/ >
INR SHOULD BE USED ONLY FOR PATIENTS ON STABLE ANTICOAGULANT THERAPY. HEMATOLOGY MPV 8.4 7.4 - 10.4 12/22 [facility] HEMATOLOGY MCH 29.2 27.0 - 12/22 31.0 /2013 [facility] HEMATOLOGY MCHC 33.4 32.0 - 12/22 36.0 /2013 [facility] HEMATOLOGY RDW 14.5 11.5 - 12/22 14.5 [facility] HEMATOLOGY Platelet 219 133 - 450 12/22 [facility] HEMATOLOGY Hct 41.6 36.0 - 12/22 48.0 /2013 [facility] HEMATOLOGY MCV 87.5 81.0 - 12/22 99.0 /2013 [facility] HEMATOLOGY RBC 4.76 4.20 - 12/22 5.40 /2013 [facility] HEMATOLOGY Hgb 13.9 12.0 - 12/22 MH 16.0 /2014 [facility] HEMATOLOGY WBC 8.5 3.7 - 10.4 12/22 /2013 [facility] HEMATOLOGY Eosinophils 0.2 0.0 - 0.5 12/22 MH # /2014 [facility] HEMATOLOGY Basophils # 0.0 0.0 - 0.2 12/22 /2013 [facility] HEMATOLOGY Segs 66.1 45.0 - 12/22 MH 75.0 /2013 [facility] HEMATOLOGY Monocytes 6.1 2.0 - 12.0 12/22 /2013 [facility] HEMATOLOGY Lymphocytes 25.0 20.0 - 12/22 MH 40.0 /2014 [facility] HEMATOLOGY Eosinophils 2.4 0.0 - 4.0 12/22 /2013 [facility] HEMATOLOGY Basophils 0.4 0.0 - 1.0 12/22 /2013 [facility] HEMATOLOGY Lymphocytes 2.1 1.0 - 5.5 12/22 MH # /2013 [facility] HEMATOLOGY Monocytes # 0.5 0.0 - 0.8 12/22 /2013 [facility] HEMATOLOGY Segs-Bands # 5.6 1.5 - 8.1 12/22 /2013 [facility] URINE AND UA WBC 3-5 /HPF None Seen 12/22 STOOL /HPF /2013 [facility] URINE AND UA Sq Epi Occasional Few /LPF 12/22 STOOL /LPF /2013 [facility] URINE AND UA Rare /HPF None Seen 12/22 STOOL Trichomonas /HPF /2013 [facility] URINE AND UA Bacteria Few /HPF None Seen 12/22 STOOL /HPF /2013 [facility] URINE AND UA Blood Trace Negative 12/22 STOOL *ABN* /2013 [facility] (12/22/13 4:17 PM) URINE AND UA Bili Negative Negative 12/22 STOOL *NA* [facility] (12/22/13 4:17 PM) URINE AND UA 0.2 0.1 - 1.0 12/22 STOOL Urobilinogen /2013 [facility] URINE AND UA Leuk Est Small Negative 12/22 STOOL *ABN* [facility] (12/22/13 4:17 PM) URINE AND UA Ketones Negative Negative 12/22 STOOL *NA* /2013 [facility] (12/22/13 4:17 PM) URINE AND UA Glucose Negative Negative 12/22 STOOL (12/22/13 4:17 PM) /2013 [facility] est URINE AND UA Turbidity Clear Clear 12/22 STOOL (12/22/13 4:17 PM) /2013 [facility] est URINE AND UA Color Yellow Yellow 12/22 STOOL *NA* /2013 [facility] (12/22/13 4:17 PM) URINE AND UA pH 6.0 5.0 - 8.0 12/22 [place]OL [place] URINE AND UA Spec Grav 1.015 <=1.030 12/22 STOOL [facility] URINE AND UA Protein Negative Negative 12/22 STOOL (12/22/13 4:17 PM) [facility] est URINE AND UA Nitrite Negative Negative 12/22 STOOL (12/22/13 4:17 PM) [facility] CHEM PANEL Phosphorus 2.7 2.5 - 4.5 12/17 [facility] CHEM PANEL Magnesium 2.2 1.8 - 2.4 12/17 [facility] ELECTROLYT AGAP 10.5 10.0 - 12/17 [facility] ES 20.0 [facility] ELECTROLYT eGFR 91 12/17 <sup[place]1</sup>[place] [facility] Comment: [facility] [place] eGFR is calculated using the CKD-EPI formula. [...] ELECTROLYT BUN 10 7 - 22 12/17 [facility] ELECTROLYT Creatinine 0.8 0.5 - 1.4 12/17 [facility] Lvl [facility] ELECTROLYT Sodium Lvl 142 135 - 145 12/17 [facility] ELECTROLYT Glucose Lvl 87 70 - 99 12/17 <sup>3</sup>I [facility] /2014 nterpretive Medical Data: Adult Center reference range values reflect the clinical guidelines
of the [place] [employer]. ELECTROLYT CO2 30 24 - 32 12/17 [facility] ES [facility] ELECTROLYT Potassium 4.5 3.5 - 5.1 12/17 [facility] ES Lvl [facility] ELECTROLYT Chloride Lvl 106 95 - 109 12/[place] [facility] ELECTROLYT Calcium Lvl 8.6 8.5 - 10.5 12/17 [place] [facility] HEMATOLOGY INR 0.97 0.85 - 12/17 <sup>7</sup>I [...] 12.8 12.0 - 12/17 [place] 14.7 /2013 [facility] HEMATOLOGY Hgb 13.7 12.0 - 12/17 [place] 16.0 [facility] HEMATOLOGY RBC 4.88 4.20 - 12/17 [place] 5.40 /2013 [facility] HEMATOLOGY MCH 28.1 27.0 - 12/17 [place] 31.0 [facility] HEMATOLOGY Hct 42.1 36.0 - 12/17 [place] 48.0 /2013 [facility] HEMATOLOGY MCV 86.4 81.0 - 12/17 [place] 99.0 /2013 [facility] HEMATOLOGY RDW 14.3 11.5 - 12/17 14.5 [facility] HEMATOLOGY MCHC 32.5 32.0 - 12/17 [place] 36.0 /2013 [facility] HEMATOLOGY MPV 8.4 7.4 - 10.4 12/17 [facility] HEMATOLOGY Platelet 197 133 - 450 12/17 [facility] HEMATOLOGY WBC 7.2 3.7 - 10.4 12/17 [facility] HEMATOLOGY Monocytes 10.7 2.0 - 12.0 12/17 [facility] HEMATOLOGY Lymphocytes 27.2 20.0 - 12/17 [place] 40.0 [facility] HEMATOLOGY Lymphocytes 1.9 1.0 - 5.5 12/[place] # [facility] HEMATOLOGY Eosinophils 3.2 0.0 - 4.0 12/17 a s [facility] HEMATOLOGY Basophils 0.6 0.0 - 1.0 12/17 [facility] HEMATOLOGY Segs-Bands # 4.2 1.5 - 8.1 12/17 [facility] HEMATOLOGY Eosinophils 0.2 0.0 - 0.5 12/[place] [facility] HEMATOLOGY Monocytes # 0.8 0.0 - 0.8 12/17 [facility] HEMATOLOGY Segs 58.3 45.0 - 12/17 [place] 75.0 [facility] PARATHYROI Ca Norm WB 1.11 1. - 12/17 [facility] D PROFILE 1. [facility] PARATHYROI Ca Ion WB 1.17 1. - 12/17 [facility] D PROFILE 1. [facility] DRUG U Benzodia Negative Negative 12/17 [facility] SCREEN Scr *NA* Medical (12/16/13 10:45 PM) Cente r DRUG U Cannab Scr Positive Negative 12/17 [facility] SCREEN *ABN* Medical (12/16/13 10:45 PM) Cente r DRUG U Cocaine Negative Negative 12/17 [facility] SCREEN Scr *NA* Medical (12/16/13 10:45 PM) Cente r DRUG U Phencyc Negative Negative 12/17 [facility] SCREEN Scr *NA* Medical (12/16/13 10:45 PM) Cente r DRUG U Opiate Scr Negative Negative 12/17 [facility] SCREEN *NA* Medical (12/16/13 10:45 PM) Cente r DRUG UDS Note See Note 6 12/17 <sup>6</sup>I [facility] as SCREEN (12/16/13 10:45 PM) /2013 nterpretive M edical Data: Drugs Center reported as positive have not been confirmed by a second
sd thod and should be used for medical [...] DRUG U Amph Scr Negative Negative 12/17 [facility] SCREEN *NA* /2013 Medical (12/16/13 10:45 PM) Cente r DRUG U Keyla Scr Negative Negative 12/17 [facility] SCREEN *NA* /2013 Medical (12/16/13 10:45 PM) Cente r CARDIAC Total CK 56 12 - 191 12/17 [facility] ENZYMES /2013 [facility] CARDIAC Troponin-T <0.010 0.000 - 12/17 [facility] ENZYMES 0.100 [facility] CARDIAC Troponin-I <0.02 0.00 - 12/17 [facility] ENZYMES 0.40 [facility] CARDIAC BNP 13 <=100 12/17 <sup>5</sup>I [facility] ENZYMES pg/mL /2013 nterpretive Medical Data: Center Elevated results are in line with increasing severity of
con gestive heart failure. Minor elevations between 100 and 300
may be seen with Myocardial Ischemia, Sodium retaining drugs,
an d compensated/t reated heart failure. LIPIDS VLDL 18 12/17 [place] /2013 [facility] LIPIDS LDL 88 <=99 mg/dL 12/17 [facility] (Calculated) [facility] LIPIDS Trig 88 <=149 12/17 [facility] mg/dL /2013 [facility] LIPIDS CHD Risk 3.08 3.90 - 12/17 [place] 5.80 /2013 [facility] LIPIDS Chol 157 <=199 12/17 [facility] mg/dL /2013 [facility] LIPIDS HDL 51 >=61 mg/dL 12/17 [facility] SPECIAL Hgb A1C 5.3 <=5.6 % 12/17 [facility] CHEMISTRY /2013 [facility] THYROID TSH 0.870 0.360 - 12/17 [facility] PANEL 3.740 /2013 [facility] CARDIAC Total CK 42 12 - 191 12/16 [facility] ENZYMES /2013 [facility] CARDIAC Troponin-I <0.02 0.00 - 12/16 [facility] ENZYMES 0.40 [facility] CHEM PANEL Lactic Acid 1.3 0.5 - 2.2 12/16 [place] L[place] /2013 [facility] HEMATOLOGY PT 11.8 12.0 - 12/16 [place] 14.7 /2013 [facility] HEMATOLOGY INR 0.87 0.85 - 12/16 <sup>8</sup>I [...] 4.69 4.20 - 12/16 [place] 5.40 /2013 [facility] HEMATOLOGY WBC 6.6 3.7 - 10.4 12/16 [facility] HEMATOLOGY Hct 40.5 36.0 - 12/16 [place] 48.0 /2013 [facility] HEMATOLOGY MCV 86.4 81.0 - 12/16 [place] 99.0 /2013 [facility] HEMATOLOGY Hgb 13.6 12.0 - 12/16 [place] 16.0 /2013 [facility] HEMATOLOGY MCH 29.0 27.0 - 12/16 [place] 31.0 /2013 [facility] HEMATOLOGY MCHC 33.6 32.0 - 12/16 [place] 36.0 [facility] HEMATOLOGY Platelet 202 133 - 450 12/16 [facility] HEMATOLOGY RDW 13.4 11.5 - 12/16 14.5 [facility] HEMATOLOGY MPV 8.6 7.4 - 10.4 12/16 [facility] HEMATOLOGY Monocytes # 0.8 0.0 - 0.8 12/16 [facility] HEMATOLOGY Basophils # 0.0 0.0 - 0.2 12/16 [facility] HEMATOLOGY Monocytes 12.1 2.0 - 12.0 12/16 [facility] HEMATOLOGY Eosinophils 3.8 0.0 - 4.0 12/16 [facility] HEMATOLOGY Basophils 0.6 0.0 - 1.0 12/16 [facility] HEMATOLOGY Segs-Bands # 3.9 1.5 - 8.1 12/16 [facility] HEMATOLOGY Eosinophils 0.3 0.0 - 0.5 12/16 a s [facility] HEMATOLOGY Lymphocytes 1.6 1.0 - 5.5 12/16 a s [facility] HEMATOLOGY Lymphocytes 25.0 20.0 - 12/16 [place] 40.0 [facility] HEMATOLOGY Segs 58.5 45.0 - 12/16 75.0 [facility] CHEM PANEL eGFR 79 12/16 <sup>2</sup>R esult [...] PANEL Creatinine 0.9 0.5 - 1.4 12/16 [facility] CHEM PANEL Sodium Lvl 142 135 - 145 12/16 [facility] CHEM PANEL Potassium 4.5 3.5 - 5.1 12/16 [facility] CHEM PANEL Chloride Lvl 107 95 - 109 12/16 [facility] CHEM PANEL Glucose Lvl 78 70 - 99 12/16 <sup>4</sup>I nterpretive Medical Data: Adult Center reference range values reflect the clinical guidelines
of the [place] [employer]. CHEM PANEL BUN 11 7 - 22 12/16 [facility] CHEM PANEL A/G Ratio 1.0 0.7 - 1.6 12/16 [facility] CHEM PANEL B/C Ratio 12 6 - 25 12/16 [facility] CHEM PANEL Globulin 3.6 2.0 - 4.0 12/16 [facility] CHEM PANEL AGAP 16.5 10.0 - 12/16 20.0 [facility] CHEM PANEL Total 7.2 6.4 - 8.4 12/16 Protein [facility] CHEM PANEL AST 19 0 - 37 12/16 [facility] CHEM PANEL CO2 23 24 - 32 12/16 [facility] CHEM PANEL Calcium Lvl 9.2 8.5 - 10.5 12/16 [facility] CHEM PANEL Bili Total 0.3 0.2 - 1.3 12/16 [facility] CHEM PANEL Albumin Lvl 3.6 3.5 - 5.0 12/16 [facility] CHEM PANEL Alk Phos 87 39 - 136 12/16 [facility] CHEM PANEL ALT 31 0 - 65 12/16 [facility] CARDIAC Total CK 56 12 - 191 12/16 [facility] ENZYMES [facility] CARDIAC Troponin-I <0.02 0.00 - 12/16 [facility] ENZYMES 0.40 [facility] CARDIAC Troponin-I <0.02 0.00 - 11/08 [facility] ENZYMES 0.40 [facility] CARDIAC Total CK 49 12 - 191 11/08 [facility] ENZYMES /2013 [facility] CARDIAC Troponin-T <0.010 0.000 - 11/08 [facility] ENZYMES 0.100 /2013 [facility] MYOGLOBIN Myoglobin 36 25 - 72 11/08 /2013 [facility] CARDIAC Troponin-T <0.010 0.000 - 11/08 [facility] ENZYMES 0.100 /2013 [facility] CARDIAC Total CK 54 12 - 191 11/08 [facility] /2013 [facility] CARDIAC Troponin-I <0.02 0.00 - 11/08 [facility] ENZYMES 0.40 [facility] CARDIAC Troponin-I <0.02 0.00 - 11/08 [facility] ENZYMES 0.40 [facility] ELECTROLYT AGAP 11.4 10.0 - 11/08 [facility] ES 20.0 [facility] ELECTROLYT eGFR 69 11/08 <sup>1</sup>[place] [facility] Medical Comment: The Center eGFR is calculated [...] Calcium Lvl 9.2 8.5 - 10.5 11/08 [place] [facility] ELECTROLYT CO2 27 24 - 32 11/08 [facility] ELECTROLYT Chloride Lvl 105 95 - 109 11/08 [place] [facility] ELECTROLYT Potassium 3.4 3.5 - 5.1 11/08 [facility] ES Lvl [facility] ELECTROLYT Sodium Lvl 140 135 - 145 11/08 MH [facility] ELECTROLYT BUN 11 7 - 22 11/08 Medical Center ELECTROLYT Glucose Lvl 84 70 - 99 11/08 <sup>2</sup>I nterpretive Medical Data: Adult Center reference range values reflect the clinical guidelines
of the [place] [employer]. ELECTROLYT Creatinine 1.0 0.5 - 1.4 11/08 [facility] ES Lvl [facility] HEMATOLOGY Basophils # 0.1 0.0 - 0.2 11/08 [facility] HEMATOLOGY Eosinophils 0.2 0.0 - 0.5 11/08 [place] [facility] HEMATOLOGY Monocytes # 0.8 0.0 - 0.8 11/08 [facility] HEMATOLOGY Segs 72.5 45.0 - 11/08 [place] 75.0 [facility] [place] [place] HEMATOLOGY Lymphocytes 17.0 20.0 - 11/08 40.0 [facility] HEMATOLOGY Eosinophils 2.1 0.0 - 4.0 11/08 [facility] HEMATOLOGY Monocytes 7.8 2.0 - 12.0 11/08 [facility] HEMATOLOGY Segs-Bands # 7.6 1.5 - 8.1 11/08 [facility] HEMATOLOGY Basophils 0.6 0.0 - 1.0 11/08 [facility] HEMATOLOGY Lymphocytes 1.8 1.0 - 5.5 11/08 s [facility] HEMATOLOGY MPV 8.7 7.4 - 10.4 11/08 [facility] [place] HEMATOLOGY RDW 14.0 11.5 - 11/08 [place] 14.5 [facility] HEMATOLOGY Platelet 191 133 - 450 11/08 [facility] [place] HEMATOLOGY MCHC 33.9 32.0 - 11/08 [place] 36.0 /2013 Medical Center HEMATOLOGY RBC X 10x6 4.65 4.20 - 11/08 [place] 5.40 /2013 [facility] HEMATOLOGY WBC X 10x3 10.6 3.7 - 10.4 11/08 [facility] [place] HEMATOLOGY MCH 29.3 27.0 - 11/08 [place] 31.0 [facility] HEMATOLOGY MCV 86.6 81.0 - 11/08 MH [place] 99.0 /2013 [facility] HEMATOLOGY Hgb 13.6 12.0 - 11/08 [facility] 16.0 /2014 [facility] HEMATOLOGY Hct 40.2 36.0 - 11/08 [facility] 48.0 /2014 [facility] Pathology Reports No Data Provided for This Section Diagnostic Reports Report Value Date Source ED Abdomen/Pelvis IV Patient Name: LUCIUS YEPEZ 01/19/2017 [facility] contrast only CT : 1950; Age: 66 years Female MR: [id number] Study: ED Abdomen/Pelvis IV contrast only CT [...] hours. 5. Presumed multi fibroid uterus. SL: [id number] Chest 1view DX EXAM: XR CHEST 1 [...] 2 view chest compared to 11/06/2016. 09/2016 [facility] History: Chest pain and cough Comments: The trachea is midline. The cardiomediastinal si lhouette is normal in size. No pneumonia. No pleural effusions or pneumothorax. Impression: No acute cardiopulmonary disease. Chest 2 views DX Patient Name: LUCIUS YEPEZ 11/06/2016 [facility] : 1950; Age: 66 years y/o Female MR: [id number] Study: Chest 2 views DX 11/06/2016 5:38 PM [employer] Ordering Physician: Ciro Cordova Comparison: 10/10/2016 09/03/2015 [...] SPINE WITHOUT AND WITH CONTR AST 10/10/2016 [facility] contrast MRI DATE: 10/10/2016 at [...] SPINE WITHOUT AND WI TH CONTRAST 10/10/2016 [facility] contrast MRI DATE: 10/10/2016 at [...] canal. There is no neural foraminal compromise. [id number]: The interverte bral discs are well-maintained. 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 [...] Pulmonary Study: Chest Pulmonary Embolism CTA 03/11/2016 [facility] Embolism CTA Age: 65 years y/o Female [...] pulmonary artery noted on previous exams. SL: [id number] Abdomen AP DX Clinical Indication: Vomiting; 03/11/2016 [facility] Comparison: None 1 view abdomen Nonobstructive bowel gas pat tern. Moderate amount of stool throughout the colon. No pathologic calcifications are evident. IMPRESSION: Negative. SL: [id number] Chest 1view DX Chest 1view DX 03/11/2016 [facility] CLINICAL HISTORY:Chest pain COMPARISON: 02/29/2016 FINDINGS: Limited AP portable study. Lungs are reasonably well in flated. No consolidation, effusion or pneumothorax. Trachea is midline. Cardiomediastinal silhouette is within normal li mits. No pulmonary edema. No significant bony abnormality is noted. IMPRESSION: No acute abnormality is noted in the chest. SL: [id number] Chest 2 views DX Study: Chest 2 views DX 02/29/2016 [facility] Age Female 65 years old Clinical Indication: [...] IMPRESSION: 1. No acute abnormality noted. SL: [id number] Brain wo contrast CT CLINICAL HISTORY: Vertigo. 09/04/2015 [facility] CT brain without contrast. Comparison 05/02/2015 Extensive [...] 1view DX CHEST RADIOGRAPH SINGLE VIEW 09/03/2015 [facility] INDICATION: Dyspnea COMPARISON: Chest radiograph 07/15/2015 IMPRESSION: [...] 1view DX EXAM: CHEST 1 VIEW 05/18/2015 [facility] DATE: May 18, 2015 01:38:00 [...] views DX EXAM: CHEST 2 VIEWS 05/09/2015 [facility] DATE: May 09, 2015 12:41:00 PM [...] CT of the brain without contrast. 11/2014 [facility] DATE: 05/02/2015 CLINICAL HISTORY: Head trauma. [...] views DX EXAM: CHEST 2 VIEWS 05/02/2015 [facility] DATE: May 02, 2015 05:44:24 PM INDICATION: Chest pain COMPARISON: Chest radiograph 03/21/2015 TECHNIQUE: Frontal and lateral chest radiographs FINDINGS: The heart size is within normal limits. The lungs are clear. The costophrenic sulci are sharp without effusion. The osseous structures are unremarkable. IMPRESSION: No acute abnormality identified. Knee 3 views DX HISTORY: Pain, [facility]. [facility] 4 views. No fracture subluxation or acute abnormality. No significant joint effusion. IMPRESSION: Negative. SL:14 Spine lumbar series CLINICAL HISTORY: Pain post trauma. 04/11/[address] [place] [address] DX Lumbar spine [address] abdomen and pelvis 03/24/2015. Grade 1 anterolisthesis of L 4 upon L5. Advanced degenerative spondylosis with disc space narrowing at L4-L5 and L5-S1. No fracture or acute subluxation otherwise appreciated. IMPRESSION: Chronic degenera tive spondylosis. L4-L5 anterolisthesis, unchanged from 03/24/2015. No other acute finding. SL:14 Shoulder series DX Examination: Right shoulder, 3 views 03/30/[address] [place] [address] History: Pain from a fall Comparison: None. Findings: Multiple views of the right shoulder show no acute bony fracture or joint dislocation. Bones are demineralized. Severe glenohumeral joint osteoarthrosis is seen. Soft tissues are unremarkable. IMPRESSION: No acute bony abnormality of the rig ht shoulder. SL: 16 Abdomen/Pelvis w IV EXAMINATION: CT of the abdomen and pelvi s with contrast 03/24/2015 [facility] contrast CT HISTORY: Abdominal pain, acute COMPARISON: [...] views DX CHEST RADIOGRAPH 2 VIEWS 03/21/2015 [facility] INDICATION: Chest pain COMPARISON: Chest radiograph 03/11/2015 IMPRESSION: The cardiac silhouette and pulmonary vasculature are within normal limits. No consolidation, pleural effusion, or pneumotho rax are visible. SL: 16 Chest 1view DX Examination: Chest x-ray, single view 03/11/2015 [facility] History: Chest pain Comparison: 03/05/2015 Findings: Cardiac silhouette is normal in size. Mild interstitial edema is seen. There is no pleural effusion or pneumothorax. Coronary artery stent is noted. Osseous structures are stable. IMPRESSION: Mild pulmonary edema SL: 16 Chest Pulmonary EXAM: CTA CHEST WITH CONTRAST 03/05/2015 [facility] Embolism CTA Center DATE: 03/05/2015 at [...] DX EXAM: XR CHEST 1 VIEW 03/05/2015 [facility] DATE: Mar 05, 2015 01:09:00 AM INDICATION: [...] MRI BRAIN WITH AND WITHOUT CONTRAST: 015 [facility] CLINICAL HISTORY: Mass/Tumor. TECHNIQUE AND FINDINGS: [...] Lower Extremity Runoff, [id number] at [id number]. 02/24/2015 [facility] runoff CTA CLINICAL HISTORY: 64-year-ol d female; [...] 2 views DX Chest 2 views. 02/24/2015 [facility] COMPARISON: 02/16/2015 FINDINGS: Mild scarring is n [...] 2 or 3 THREE-VIEW CERVICAL SPINE: 02/24/2015 [facility] view DX DISCUSSION: No older studies available [...] wo contrast CT NAME: LUCIUS YEPEZ 02/24/2015 [facility] : 1950 SEX: F 8 [...] 1view DX EXAM: CHEST 1 VIEW 02/16/2015 [facility] DATE: Feb 16, 2015 06:21:07 PM INDICATION: Chest pain COMPARISON: None. TECHNIQUE: AP chest radiograph. FINDINGS: Lungs are clear bilaterally without effusion. Cardiac silhouette is not enlarged. Aorta is mildly ectatic. Aortic arch calcifications are seen.. Coronary artery stent is seen. Right shoulder degenerative changes are noted. IMPRESSION: 1. No acute intrathoracic abnormality SL: 12 Chest 1view PROCEDURE: Chest 1view 12/22/2013 [facility] REASON FOR EXAM: See Clinic Indication CLINICAL INDICATION: Chest pain COMPARISON: 12/16/2013. FINDINGS: No acute process. No focal consolidation, pleural effusion, or pneumothorax. Stable cardiac silhouette and mediastinum. Tortuous atherosclerotic thoracic aorta. SL: 12 Chest Pulmonary EXAM: CTA CHEST WITH CONTRAST 12/16/2013 [facility] Embolism CTA Center DATE: 12/16/2013 at [...] views EXAM: XR CHEST 2 VIEWS 12/16/2013 [facility] DATE: 12/16/2013 at 1341 hours INDICATION: [...] [place] Diastolic (mm Hg) 70 01/19/2017 [facility] [address] Respitory Rate 16 01/19/2017 [facility] Systolic (mm Hg) 117 01/19/2017 [facility] t Diastolic (mm Hg) 66 01/19/2017 [facility] [address] Respitory Rate 18 01/19/2017 [facility] Respitory Rate 16 01/19/2017 [facility] Systolic (mm Hg) 133 01/19/2017 [facility] t Diastolic (mm Hg) 68 01/19/2017 [facility] Weight 45.455 01/19/2017 [facility] BMI Calculated 19.57 01/19/2017 [facility] Height 152.4 cm 01/19/2017 [facility] Temperature Oral (F) 97.0 F 01/19/2017 [facility] Rate 60 01/19/2017 [facility] Systolic (mm Hg) 118 01/17/2017 [facility] dical Center Diastolic (mm Hg) 71 01/17/2017 [facility] Respitory Rate 21 01/17/2017 [facility] Systolic (mm Hg) 136 01/17/2017 [facility] dical Center Diastolic (mm Hg) 71 01/17/2017 [facility] Respitory Rate 20 01/17/2017 [facility] Temperature Oral (F) 98.1 F 01/17/2017 [facility] [place] Systolic (mm Hg) 129 01/17/2017 [facility] dical Center Diastolic (mm Hg) 74 01/17/2017 [facility] Respitory Rate 18 01/17/2017 [facility] Heart Rate 79 01/16/2017 [facility] Temperature Oral (F) 98 F 01/16/2017 [facility] Weight 45.455 01/16/2017 [facility] [place] Heart Rate 89 11/29/2016 [facility] Systolic (mm Hg) 119 11/29/2016 [facility] Diastolic (mm Hg) 62 11/29/2016 [place] Respitory Rate 18 11/29/2016 [place] Temperature Oral (F) 98.7 F 11/29/2016 [place] Heart Rate 90 11/29/2016 [place] Respitory Rate 18 11/29/2016 [place] Systolic (mm Hg) 113 11/29/2016 [facility] [place] Diastolic (mm Hg) 66 11/29/2016 [place] Heart Rate 93 11/29/2016 [place] Respitory Rate 18 11/29/2016 [place] Systolic (mm Hg) 118 11/29/2016 [place] Diastolic (mm Hg) 61 11/29/2016 [facility] [place] Weight 50 11/29/2016 [place] BMI Calculated 21.53 11/29/2016 [place] Height 152.4 cm 11/29/2016 [place] Temperature Oral (F) 98.6 F 11/29/2016 [place] Respitory Rate 16 11/07/2016 [place] Heart Rate 84 11/07/2016 [place] Temperature Oral (F) 98.2 F 11/07/2016 [place] Systolic (mm Hg) 122 11/07/2016 [place] Diastolic (mm Hg) 72 11/07/2016 [place] Heart Rate 88 11/07/2016 [place] Respitory Rate 16 11/07/2016 [place] Systolic (mm Hg) 98 11/07/2016 [place] Diastolic (mm Hg) 62 11/07/2016 [place] Weight 56.818 11/06/2016 [place] Heart Rate 96 11/06/2016 [place] Temperature Oral (F) 98.3 F 11/06/2016 [place] Respitory Rate 16 11/06/2016 [place] Systolic (mm Hg) 123 11/06/2016 [place] Diastolic (mm Hg) 70 11/06/2016 [place] Respitory Rate 18 10/11/2016 [facility] Center Temperature Oral (F) 97.9 F 10/11/2016 [facility] Systolic (mm Hg) 99 10/11/2016 [facility] Diastolic (mm Hg) 57 10/11/2016 [facility] Heart Rate 51 10/11/2016 [facility] Heart Rate 56 10/11/2016 [facility] Systolic (mm Hg) 125 10/11/2016 [place] [facility] Diastolic (mm Hg) 63 10/11/2016 [facility] Oral (F) 98.1 F 10/11/2016 [facility] [place] Temperature Oral (F) 99.0 F 10/11/2016 [facility] Respitory Rate 16 10/11/[address] [facility] Center Heart Rate 72 10/11/2016 [facility] Systolic (mm Hg) 115 10/11/2016 [facility] dical Center Diastolic (mm Hg) 56 10/11/2016 [facility] Center Weight 50 10/11/2016 [facility] BMI Calculated 21.53 10/11/[address] [facility] tony Center Height 152.4 cm 10/11/2016 [facility] Respitory Rate 19 10/11/[address] [facility] t[facility] Center Height 152.4 cm 10/10/2016 [facility] BMI Calculated 21.53 10/10/[address] [facility] tony Center Weight 50 10/10/2016 [facility] BMI Calculated 21.53 09/15/2016 [facility] Weight 50 09/15/2016 [facility] Height 152.4 cm 09/15/2016 [facility] Systolic (mm Hg) 129 09/15/2016 [facility] Diastolic (mm Hg) 72 09/15/2016 [place] Respitory Rate 18 09/15/2016 [facility] Heart Rate 66 09/15/2016 [facility] Temperature Oral (F) 98.5 F 09/15/2016 [place] Respitory Rate 18 04/14/[address] [facility] [place]ony [place] Temperature Oral (F) 98.7 F 04/14/2016 [facility] Systolic (mm Hg) 120 04/14/2016 [facility] dical Center Diastolic (mm Hg) 88 04/14/2016 [facility] Heart Rate 79 04/14/2016 [facility] BMI Calculated 21.53 04/14/2016 [facility] Weight 50 04/14/2016 [facility] Temperature Oral (F) 99.2 F 04/14/2016 [facility] Height 152.4 cm 04/14/2016 [facility] Respitory Rate 18 04/14/2016 [facility] Systolic (mm Hg) 110 04/14/2016 [facility] [place] [facility] Diastolic (mm Hg) 68 04/14/2016 [facility] Heart Rate 81 04/14/2016 [facility] Temperature Oral (F) 97.8 F 03/12/2016 [place] Heart Rate 55 03/12/2016 [place] Respitory Rate 17 03/12/2016 [place] Systolic (mm Hg) 130 03/12/2016 [place] Diastolic (mm Hg) 70 03/12/2016 [place] Respitory Rate 16 03/12/2016 [place] Systolic (mm Hg) 94 03/12/2016 [place] Diastolic (mm Hg) 59 03/12/2016 [place] Respitory Rate 18 03/12/2016 [place] Heart Rate 58 03/12/2016 [place] Temperature Oral (F) 98.2 F 03/12/2016 [place] Temperature Oral (F) 98.0 F 03/12/2016 [place] Heart Rate 68 03/12/2016 [place] Systolic (mm Hg) 106 03/12/2016 [place] Diastolic (mm Hg) 53 03/12/2016 [place] Height 152.4 cm 03/11/2016 [place] BMI Calculated 21.53 03/11/2016 [place] Weight 50 03/11/2016 [place] Respitory Rate 16 03/06/2016 [place] Systolic (mm Hg) 116 03/06/2016 [place] Diastolic (mm Hg) 79 03/06/2016 [place] Heart Rate 68 03/06/2016 [place] Temperature Oral (F) 98.1 F 03/06/2016 [place] BMI Calculated 21.53 03/05/2016 [place] Weight 50 03/05/2016 [place] Systolic (mm Hg) 111 03/05/2016 [place] Diastolic (mm Hg) 81 03/05/2016 [place] Heart Rate 67 03/05/2016 [place] Height 152.4 cm 03/05/2016 [place] Temperature Oral (F) 98.3 F 03/05/2016 [place] Respitory Rate 16 03/05/2016 [place] Respitory Rate 16 03/01/2016 [place] Systolic (mm Hg) 105 03/01/2016 [place] Diastolic (mm Hg) 65 03/01/2016 [place] Temperature Oral (F) 98.2 F 03/01/2016 [place] Heart Rate 87 03/01/2016 [place] Respitory Rate 12 02/29/2016 [place] Temperature Oral (F) 98.3 F 02/29/2016 [place] Heart Rate 81 02/29/2016 [place] Respitory Rate 18 02/29/2016 [place] Systolic (mm Hg) 112 02/29/2016 [place] Diastolic (mm Hg) 79 02/29/2016 [place] Respitory Rate 20 09/05/2015 [facility] Systolic (mm Hg) 99 09/05/2015 [place] Diastolic (mm Hg) 57 09/05/[address] [facility] [address] Heart Rate 91 09/05/2015 [facility] Weight 52.276 09/05/2015 [facility] Systolic (mm Hg) 102 09/05/2015 [place] Diastolic (mm Hg) 54 09/05/[address] [facility] [address] Respitory Rate 18 09/05/2015 [facility] Heart Rate 86 09/05/2015 [facility] Respitory Rate 20 09/05/2015 [facility] Systolic (mm Hg) 95 09/05/2015 [place] Diastolic (mm Hg) 49 09/05/[address] [facility] [address] Heart Rate 94 09/05/2015 [facility] Weight 50.92 09/04/2015 [facility] Weight 50.909 09/04/2015 [facility] BMI Calculated 19.88 09/04/2015 [facility] Height 160.02 cm 09/04/2015 [facility] Temperature Oral (F) 98.3 F 09/04/2015 [facility] Height 152.4 cm 09/04/2015 [facility] BMI Calculated 22.51 09/04/2015 [facility] Temperature Oral (F) 98.7 F 09/04/2015 [facility] Systolic (mm Hg) 105 07/16/2015 [place] Diastolic (mm Hg) 68 07/16/[address] Respitory Rate 18 07/16/2015 [facility] Heart Rate 65 07/16/2015 [facility] Temperature Oral (F) 98.0 F 07/16/2015 [facility] Systolic (mm Hg) 112 07/16/2015 [place] Diastolic (mm Hg) 70 07/16/[address] Respitory Rate 18 07/16/2015 [facility] Heart Rate 73 07/16/2015 [facility] Temperature Oral (F) 97.4 F 07/16/2015 [facility] Systolic (mm Hg) 131 07/16/2015 [place] Diastolic (mm Hg) 79 07/16/[address] Respitory Rate 18 07/16/2015 [facility] Heart Rate 62 07/16/2015 [facility] Temperature Oral (F) 97.9 F 07/16/2015 [facility] Height 152.4 cm 07/16/2015 [facility] Weight 50.1 07/16/2015 [facility] BMI Calculated 21.57 07/16/2015 [facility] Height 152.4 cm 07/15/2015 [facility] BMI Calculated 21.53 07/15/2015 [facility] Weight 50 07/15/2015 [facility] Weight 50 07/05/2015 [facility] Height 152.4 cm 07/05/2015 [facility] BMI Calculated 21.53 07/05/2015 [facility] Temperature Oral (F) 98.3 F 07/05/2015 [facility] Respitory Rate 18 07/05/2015 [facility] Heart Rate 91 07/05/2015 [facility] Systolic (mm Hg) 166 07/05/2015 [place] Diastolic (mm Hg) 82 07/05/[address] [facility] [address] BMI Calculated 23.48 07/04/2015 [facility] Weight 54.545 07/04/2015 [facility] Height 152.4 cm 07/04/2015 [facility] Temperature Oral (F) 97.9 F 07/04/2015 [facility] Respitory Rate 18 07/04/2015 [facility] Heart Rate 86 07/04/2015 [facility] Systolic (mm Hg) 98 07/04/2015 [facility] Diastolic (mm Hg) 74 07/04/2015 [facility] BMI Calculated 21.53 06/04/2015 [facility] Weight 50 06/04/2015 [facility] Height 152.4 cm 06/04/2015 [facility] Temperature Oral (F) 98.8 F 06/04/2015 [facility] Respitory Rate 20 06/04/2015 [facility] Heart Rate 81 06/04/2015 [facility] Systolic (mm Hg) 100 06/04/2015 [place] Diastolic (mm Hg) 69 06/04/[address] Systolic (mm Hg) 105 05/18/2015 [facility] dical Center Diastolic (mm Hg) 65 05/18/2015 [facility] Temperature Oral (F) 96.6 F 05/18/2015 [facility] Heart Rate 68 05/18/2015 [facility] Resp[facility] Rate 18 05/18/2015 [facility] Center Systolic (mm Hg) 115 05/18/2015 [facility] dical Center Diastolic (mm Hg) 79 05/18/2015 [facility] Center Systolic (mm Hg) 93 05/18/2015 [facility] dical Center Diastolic (mm Hg) 60 05/18/2015 [facility] Temperature Oral (F) 98.1 F 05/18/2015 [facility] Center Respitory Rate 17 05/18/2015 [facility] Temperature Oral (F) 98.2 F 05/18/2015 [facility] Heart Rate 68 05/18/2015 [facility] Respitory Rate 18 05/18/2015 [facility] Center Heart Rate 96 05/18/2015 [facility] Respitory Rate 20 05/09/2015 [facility] Center Systolic (mm Hg) 115 05/09/2015 [facility] dical Center Diastolic (mm Hg) 64 05/09/2015 [facility] Temperature Oral (F) 97.5 F 05/09/2015 [facility] Temperature Oral (F) 97.5 F 05/09/2015 [facility] Systolic (mm Hg) 136 05/09/2015 [facility] dical Center Diastolic (mm Hg) 70 05/09/2015 [facility] Center Respitory Rate 19 05/09/2015 [facility] Center Systolic (mm Hg) 135 05/09/2015 [facility] dical Center Diastolic (mm Hg) 67 05/09/2015 [facility] Center Weight 50 05/09/2015 [facility] BMI Calculated 21.53 05/09/2015 [facility] Height 152.4 cm 05/09/2015 [facility] Temperature Oral (F) 98.9 F 05/09/2015 [facility] Center Respitory Rate 18 05/09/2015 [facility] Center Heart Rate 77 05/09/2015 [facility] Systolic (mm Hg) 115 05/03/2015 [facility] dical Center Diastolic (mm Hg) 74 05/03/2015 [facility] Heart Rate 77 05/03/2015 [facility] Respitory Rate 18 05/03/2015 [facility] Center Temperature Oral (F) 98.5 F 05/03/2015 [facility] Heart Rate 75 05/02/2015 [facility] Respitory Rate 18 05/02/2015 [facility] Center Systolic (mm Hg) 113 05/02/2015 [facility] dical Center Diastolic (mm Hg) 71 05/02/2015 [facility] Heart Rate 72 05/02/2015 [facility] Temperature Oral (F) 98.1 F 05/02/2015 [facility] Center Systolic (mm Hg) 146 05/02/2015 [facility] dical Center Diastolic (mm Hg) 80 05/02/2015 [facility] [place] Respitory Rate 18 05/02/2015 [facility] Temperature Oral (F) 98.9 F 05/02/2015 [facility] Center Systolic (mm Hg) 123 04/11/2015 [place] Diastolic (mm Hg) 78 04/11/[address] Temperature Oral (F) 98.7 F 04/11/2015 [facility] Respitory Rate 18 04/11/2015 [facility] Heart Rate 80 04/11/2015 [facility] Weight 50 04/11/2015 [facility] Temperature Oral (F) 98.4 F 04/11/2015 [facility] Systolic (mm Hg) 90 04/11/2015 [place] Diastolic (mm Hg) 65 04/11/[address] Respitory Rate 18 04/11/2015 [facility] Heart Rate 94 04/11/2015 [facility] Systolic (mm Hg) 123 03/30/2015 [place] Diastolic (mm Hg) 78 03/30/[address] [facility] [address] Temperature Oral (F) 97.9 F 03/30/2015 [facility] Heart Rate 81 03/30/2015 [facility] Respitory Rate 18 03/30/2015 [facility] BMI Calculated 21.53 03/30/2015 [facility] Height 152.4 cm 03/30/2015 [facility] Systolic (mm Hg) 114 03/30/2015 [place] Diastolic (mm Hg) 73 03/30/[address] Respitory Rate 16 03/30/2015 [facility] Heart Rate 83 03/30/2015 [facility] Weight 50 03/30/2015 [facility] Temperature Oral (F) 97.9 F 03/30/2015 [facility] Respitory Rate 18 03/24/2015 [facility] Temperature Oral (F) 97.9 F 03/24/2015 [facility] Heart Rate 83 03/24/2015 [facility] Systolic (mm Hg) 114 03/24/2015 [place] Diastolic (mm Hg) 71 03/24/[address] [facility] [address] Heart Rate 96 03/24/2015 [facility] Temperature Oral (F) 98.8 F 03/24/2015 [facility] Respitory Rate 18 03/24/2015 [facility] Systolic (mm Hg) 108 03/24/2015 [place] Diastolic (mm Hg) 68 03/24/[address] [facility] [address] Heart Rate 85 03/24/2015 [facility] Temperature Oral (F) 98.4 F 03/24/2015 [facility] Respitory Rate 18 03/24/2015 [facility] Systolic (mm Hg) 110 03/24/2015 [place] Diastolic (mm Hg) 64 03/24/[address] [facility] [address] BMI Calculated 22.82 03/22/2015 [facility] Weight 53 03/22/2015 [facility] Height 152.4 cm 03/22/2015 [facility] BMI Calculated 21.53 03/21/2015 [facility] Weight 50 03/21/2015 [facility] Height 152.4 cm 03/21/2015 [facility] Systolic (mm Hg) 113 03/11/2015 [place] Diastolic (mm Hg) 72 03/11/[address] [facility] [address] Respitory Rate 18 03/11/2015 [facility] Heart Rate 72 03/11/2015 [facility] Temperature Oral (F) 98.1 F 03/11/2015 [facility] BMI Calculated 21.53 03/11/2015 [facility] Weight 50 03/11/2015 [facility] Systolic (mm Hg) 122 03/11/2015 [place] Diastolic (mm Hg) 75 03/11/[address] [facility] [address] Temperature Oral (F) 97.9 F 03/11/2015 [facility] Heart Rate 90 03/11/2015 [facility] Respitory Rate 18 03/11/2015 [facility] Height 152.4 cm 03/11/2015 [facility] Temperature Oral (F) 97.9 F 03/05/2015 [facility] Systolic (mm Hg) 108 03/05/2015 [facility] dical Center Diastolic (mm Hg) 60 03/05/2015 [facility] Respitory Rate 16 03/05/2015 [facility] Respitory Rate 16 03/05/2015 [facility] Temperature Oral (F) 97.8 F 03/05/2015 [facility] Systolic (mm Hg) 96 03/05/2015 [facility] dical Center Diastolic (mm Hg) 64 03/05/2015 [facility] Respitory Rate 20 03/05/2015 [facility] Center Systolic (mm Hg) 96 03/05/2015 [facility] dical Center Diastolic (mm Hg) 62 03/05/2015 [facility] Temperature Oral (F) 97.7 F 03/05/2015 [facility] Heart Rate 83 03/05/2015 [facility] Heart Rate 100 03/05/2015 [facility] Height 152.4 cm 03/05/2015 [facility] BMI Calculated 21.53 03/05/2015 [facility] Weight 50 03/05/2015 [facility] Systolic (mm Hg) 121 02/25/2015 [facility] Diastolic (mm Hg) 69 02/25/2015 [facility] Temperature Oral (F) 97.9 F 02/25/2015 [facility] Heart Rate 71 02/25/2015 [facility] Respitory Rate 18 02/25/2015 [facility] Temperature Oral (F) 98 F 02/25/2015 [facility] Heart Rate 70 02/25/2015 [facility] Respitory Rate 18 02/25/2015 [place] Systolic (mm Hg) 108 02/25/2015 [place] Diastolic (mm Hg) 61 02/25/[address] Systolic (mm Hg) 90 02/25/2015 [place] Diastolic (mm Hg) 59 02/25/[address] [facility] [address] Respitory Rate 18 02/25/2015 [facility] Heart Rate 55 02/25/2015 [facility] Temperature Oral (F) 97.8 F 02/25/2015 [facility] Height 152.4 cm 02/24/2015 [facility] BMI Calculated 21.53 02/24/2015 [facility] Weight 50 02/24/2015 [facility] Heart Rate 85 02/18/2015 [facility] Temperature Oral (F) 97.3 F 02/18/2015 [facility] Systolic (mm Hg) 102 02/18/2015 [place] Diastolic (mm Hg) 69 02/18/[address] Respitory Rate 20 02/18/2015 [facility] Heart Rate 76 02/18/2015 [facility] Respitory Rate 20 02/18/2015 [facility] Systolic (mm Hg) 94 02/18/2015 [place] Diastolic (mm Hg) 69 02/18/[address] Temperature Oral (F) 97.5 F 02/18/2015 [facility] Temperature Oral (F) 97.9 F 02/18/2015 [facility] Systolic (mm Hg) 97 02/18/2015 [place] Diastolic (mm Hg) 69 02/18/[address] Respitory Rate 20 02/18/2015 [facility] Heart Rate 71 02/18/2015 [facility] Weight 51.051 02/17/2015 [facility] Height 152.4 cm 02/17/2015 [facility] BMI Calculated 21.98 02/17/2015 [facility] Weight 52.273 02/16/2015 [facility] BMI Calculated 22.51 02/16/2015 [facility] Height 152.4 cm 02/16/2015 [facility] Respitory Rate 16 12/25/2013 [facility] Heart Rate 60 12/25/2013 [facility] Diastolic (mm Hg) 66 12/25/[address] Systolic (mm Hg) 108 12/25/2013 [place] Temperature Oral (F) 98.3 F 12/25/2013 [facility] BMI Calculated 21.53 12/25/2013 [facility] Weight 50 12/25/2013 [facility] Height 152.4 cm 12/25/2013 [facility] Respitory Rate 18 12/25/2013 [facility] Heart Rate 63 12/25/2013 [facility] Diastolic (mm Hg) 71 12/25/[address] Systolic (mm Hg) 112 12/25/2013 [place] Temperature Oral (F) 98.8 F 12/25/2013 [facility] Heart Rate 61 12/23/2013 [facility] Systolic (mm Hg) 115 12/23/2013 [place] Respitory Rate 18 12/23/2013 [facility] Temperature Oral (F) 98.3 F 12/23/2013 [facility] Diastolic (mm Hg) 61 12/23/[address] Diastolic (mm Hg) 60 12/22/[address] [facility] [address] Temperature Oral (F) 98.4 F 12/22/2013 [facility] Systolic (mm Hg) 114 12/22/2013 [place] Respitory Rate 18 12/22/2013 [facility] Heart Rate 58 12/22/2013 [facility] Weight 50 12/22/2013 [facility] Temperature Oral (F) 98.7 F 12/22/2013 [facility] Systolic (mm Hg) 96 12/22/2013 [facility] Diastolic (mm Hg) 65 12/22/[address] [facility] [address] Respitory Rate 18 12/22/2013 [facility] Heart Rate 66 12/22/2013 [facility] Diastolic (mm Hg) 61 12/17/2013 [facility] Respitory Rate 18 12/17/2013 [facility] Center Systolic (mm Hg) 100 12/17/2013 [facility] dical Center Systolic (mm Hg) 98 12/17/2013 [facility] dical Center Diastolic (mm Hg) 52 12/17/2013 [facility] Resp[facility] Rate 18 12/17/2013 [facility] Center Systolic (mm Hg) 78 12/17/2013 [facility] dical Center Diastolic (mm Hg) 38 12/17/2013 [facility] Temperature Oral (F) 98.1 F 12/17/2013 [facility] Respitory Rate 18 12/17/2013 [facility] Temperature Oral (F) 97.1 F 12/17/2013 [facility] Height 152.4 cm 12/17/2013 [facility] Weight 49.545 12/17/2013 [facility] BMI Calculated 21.33 12/17/2013 [facility] Temperature Oral (F) 98.1 F 12/17/2013 [facility] Height 152.4 cm 12/16/2013 [facility] BMI Calculated 20.94 12/16/2013 [facility] Weight 48.636 12/16/2013 [facility] Heart Rate 80 12/16/2013 [facility] Temperature Oral (F) 98 F 11/08/2013 [facility] Diastolic (mm Hg) 58 11/08/2013 [facility] Respitory Rate 16 11/08/2013 [facility] Center Systolic (mm Hg) 107 11/08/2013 [facility] Temperature Oral (F) 97.6 F 11/08/2013 [facility] Diastolic (mm Hg) 56 11/08/2013 [facility] Systolic (mm Hg) 114 11/08/2013 [facility] dical Center Respitory Rate 18 11/08/2013 [facility] Center Systolic (mm Hg) 115 11/08/2013 [facility] dicla Center Respitory Rate 16 11/08/2013 [facility] Center Diastolic (mm Hg) 63 11/08/2013 [facility] Temperature Oral (F) 99.0 F 11/08/2013 [facility] Heart Rate 76 11/08/2013 [facility] Heart Rate 80 11/08/2013 [facility] [place] BMI Calculated 27.4 11/08/2013 [facility] Center Height 152.4 cm 11/08/2013 [facility] Weight 63.636 11/08/2013 [facility] Heart Rate 87 11/08/2013 [facility] [place] Encounters Location Location Encounter Encounter Reason Attending ADM DC Stat us Source Details Type Number For Provider Date Date Visit [facility] OBS [id number] _MAPID: Dustin 11/08 11/08 [facility] victoriano [place] [facility] [id number] GERMNARR Sacaroja /2013 [facility] Patient 6 [id number] [facility] [address] [facility] OBS [id number] Alvarez 12/16 12/17 [facility] Observation 7 [facility] [id number] Jann 12/22 12/23 [facility] 8 Nba /2013 [facility] Emergency [id number] Rishabh 12/25 12/25 [facility] 9 Dorothea Villagomez /2013 [facility] [place] OBS [id number] [place] 02/16 02/18 [facility] Observation 0 Thu /2014 [facility] [place] OBS [id number] [place] 02/24 02/26 [place] [facility] 1 Dixon /2014 [facility] [place] EC Emergency [id number] Tata Rushing 03/05 03/05 [facility] [place] [facility] 2 /2014 [facility] EC Emergency [id number] [place] 03/11 03/11 [facility] 3 Dick /2014 [facility] Inpatient [id number] Catarino 03/21 03/24 Maciej 4 [place] /2014 [facility] EC Emergency [id number] Isatu 03/30 03/30 [place] [facility] 5 Akunyili /2014 [facility] EC Emergency [id number] Gilmar Pina 04/11 04/11 [facility] EC Emergency [id number] Indira Henin 05/02 05/03 [facility] [place] [facility] EC Emergency [id number] Indira Henin 05/09 05/09 [facility] [place] [facility] EC Emergency [id number] Indira Henin 05/18 05/18 [facility] [place] [facility] EC Emergency [id number] Luzmaria Ware 06/04 06/04 [facility] 0 /2014 [facility] EC Emergency [id number] Maribel 07/04 07/04 [facility] [place] [facility] 1 Recio /2014 [facility] EC Emergency [id number] Hab[place] 07/05 07/05 [place] [facility] 2 Dick /2014 [facility] OBS [id number] Janet 07/15 07/16 [facility] 3 Anjel /2014 [facility] OBS [id number] Mateus [place] 09/04 09/05 [facility] [facility] 4 [facility] [place] EC Emergency [id number] Good 02/28 03/01 [facility] 5 Garbino /2015 [facility] EC Emergency [id number] Rachele 03/05 03/06 [facility] 6 [place] /2015 [facility] OBS [id number] Khadijat 03/11 03/12 [facility] Observation 7 [place]yi [facility] [id number] Jose Frandy 04/14 04/14 [facility] Emergency [id number] Nando 09/15 09/15 [facility] 9 Weathers /2016 [facility] Observation [id number] Jessika Gallegomed 10/10 10/11 [facility] 0 [facility] Emergency [id number] Christopher 11/06 11/07 [facility] 1 Nava /2016 [facility] Emergency [id number] Abdullah 11/29 11/29 [facility] 2 Basnawi /2016 [facility] Emergency [id number] Jl 01/16 01/17 [facility] 3 Buble[place]z /2016 [facility] Emergency [id number] Mac 01/19 01/19 [facility] 4 Patel /2016 [facility] Procedures Procedure Code Date Perfomer Comments Source Cardiac [id number] [facility] catheterization Medical procedure Center,[facility] Stent [id number] cardiac [facility] placement<sup>1</sup> Med ical Center,[facility] Assessment and Plan Assessment and Plan Date Source Extracted from:Title: History and Physical 01/17/2017 [facility] Author: Kita Keating MD Date: 01/16/17 [...] use, and educated about increased risk of PA if taken concurrently with cocaine, due to [...] clinic. Extracted from:Title: History and Physical 10/11/2016 [facility] Author: Maurice Lazaro MD Date: 10/10/16 [...] Heparin sub q Disposition Pending clinical improvement [facility] hospitalist is primary, please pag [phone] with questions or concerns. Extracted from:Title: Progress Note Complex * 03/24/2015 [facility] Author: Catarino Fragoso MD Date: 03/24/15 Impression and Plan Chest pain; atypical no evidence of ischemia will cont B blo kers. Andominal pain: patient will go for Ct a bdomen, she had melena GI consult pending, H/H stable, cont PPI's Extracted from:Title: CARDIOLOGY 02/26/2015 [facility] Author: Arpan Alvarado MD Date: 02/25/15 CARDIOLOGY CONSULTATION # [id number] THANK YOU FOR THIS REFERRAL Carlitos ALVARADO [...] list: All Problems Asthma / SNOMED CT 440145540 / Confirmed Cardiac chest pain / SNOMED CT 2881271613 / Confirmed HTN - Hypertension / SNOMED CT 0442009666 / Confirmed Hyperlipidemia / SNOMED CT 74415222 / Confirmed Smoking cessation education / SNOMED CT 4581181471 / Confirm ed Tissue perfusion / SNOMED CT 9039479058 / Confirmed Objective Meds Scheduled Meds (4):atorvastatin, [...] Extracted from:Title: Cardiovascular Admission H&P * 014 [facility] Author: Erica Chatman MD Date: 12/16/13 [...] adenosine stress test in AM, f/u results. 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 Extracted from:Title: Clinical Document 11/08/2013 [facility] Author: Dustin Wu Date: 11/08/2013 Date [...] cardiac enzymes, [place] in the [place] [facility] [place] Please call [phone] with questions Plan of Care No Data Provided for This Section Social History Social History Date Source Social History TypeResponse 10/10/2016 [facility] Substance Abuse Use: Current. Type: [...] smoking cessation counceling Social History TypeResponse 10/10/2016 [facility] Substance Abuse Use: Current. Type: Cocaine. Alcohol [...] smoking cessation counceling Social History TypeResponse 10/10/2016 [facility] Substance Abuse Use: Current. Type: Cocaine. [...] smoking cessation counceling Social History TypeResponse 03/22/2015 [facility] Substance Abuse Use: None. Alcohol Past, Type [...]
--- OUTSIDE RECORDS SUMMARY | 2020-07-05 13:48 | XMS REPORT | Continuity of Care Document ---
:1950 Author Organization [facility] t Address [address] [place] [address] Care Team Providers Name Role Phone UNKNOWN [...] 2017-01-16 Memoria 5-21 20:56:00 l CHEST 00:00: [place] PAIN 00 Active 01/16/2017 [facility] Diagnosis Active 2016-11-28 Mem oria 4-02 20:00:00 l PAIN 00:00: Hatch 00 Active 11/28/2016 [facility] FACIAL Diagnosis Active 2016-11-06 Mem oria SWELLING 3-11 18:35:00 l FACIAL 00:00: Hatch SWELLING 00 Active 11/06/2016 [facility] SYNCOPE Diagnosis Active 2017-02-18 Me moria 2-12 10:16:00 l SYNCOPE 00:00: Maciej 00 Active 10/10/2016 [facility] SICK Diagnosis Active 2016-10-10 Mem oria 2-12 20:58:00 l SICK 00:00: Maciej 00 Active 10/10/2016 [facility] CHEST Diagnosis Active 2016-03-12 Mem oria PAIN, 7-14 12:26:00 l HYPOTENSIO CHEST 00:00: Caroline nn N PAIN, 00 HYPOTENSIO N Active 03/11/2016 [facility] SOB Diagnosis Active 2016-03-11 Mem oria - 15:11:00 l SOB 00:00: Maciej 00 Active 03/11/2016 [facility] BACK PAIN Diagnosis Active 2016-10-12 Memoria 09-14 14:26:00 l BACK 00:00: Hatch PAIN 00 Active 09/14/2015 [facility] COPD, Diagnosis Active 2015-09-05 Mem oria CHEST PAIN 09-03 15:21:00 l COPD, 00:00: Hatch CHEST PAIN 00 Active 09/03/2015 [facility] HEADACHE Diagnosis Active 2014-082015-07-15 M emoria 09-14 17:17:00 l HEADACHE 00:00: Kristopher n 00 Active 07/15/2015 [facility] SOB/ Diagnosis Active 2014-082015-07-05 Mem oria WEAKNESS 09-03 01:33:00 l SOB/ 22:00: Hatch WEAKNESS 00 Active 07/04/2015 [facility] LOWER BACK Diagnosis Active 2014-082015-07-11 Memoria AND LEG 09-03 13:07:00 l PAIN LOWER 00:00: Maciej BACK AND 00 LEG PAIN Active 07/04/2015 [facility] SHORTNESS Diagnosis Active 2014-082015-06-04 Memoria OF BREATH 0 01:54:00 l 19:00: Hatch SHORTNESS 00 OF BREATH Active 06/03/2015 [facility] NAUSEA Diagnosis Active 2015-05-20 Mem oria 05-18 07:49:00 l NAUSEA 00:00: Hatch 00 Active 05/18/2015 [facility] FALL Diagnosis Active 2015-05-02 Mem oria 05-02 16:55:00 l FALL 00:00: Maciej 00 Active 05/02/2015 [facility] NECK AND Diagnosis Active 2015-03-30 M emoria SHOULDER 03-30 16:35:00 l PAIN NECK AND 00:00: Kristopher n SHOULDER 00 PAIN Active 03/30/2015 [facility] SOB/CHEST Diagnosis Active 2015-03-21 Memoria PAIN 03-21 15:46:00 l 00:00: Maciej SOB/CHEST 00 PAIN Active 03/21/2015 [facility] HYPOTENSIO Diagnosis Active 2015-03-31 Memoria N, CHEST 03-21 11:41:00 l PAIN 00:00: Maciej HYPOTENSIO 00 N, CHEST PAIN Active 03/21/2015 [facility] LOWER BACK Diagnosis Active 2015-03-11 Memoria PAIN 03-11 15:56:00 l LOWER 00:00: Hatch BACK PAIN 00 Active 03/11/2015 [facility] UPPER BACK Diagnosis Active 2015-02-24 Memoria PAIN 02-24 15:44:00 l UPPER 00:00: Maciej BACK PAIN 00 Active 02/24/2015 [facility] ACUTE Diagnosis Active 2015-02-26 Mem oria CHEST PAIN 02-24 09:02:00 l ACUTE 00:00: Maciej CHEST PAIN 00 Active 02/24/2015 [facility] UNSTABLE Diagnosis Active 2015-02-19 M emoria ANGINA; 02-16 13:44:00 l HYPOTENSIO UNSTABLE 00:00: He rmann N ANGINA; 00 HYPOTENSIO N Active 02/16/2015 [facility] CHEST/LEG Diagnosis Active 2013-12-22 Memoria PAIN 12-22 18:23:00 l 00:00: Maciej CHEST/LEG 00 PAIN Active 12/22/2013 [facility] OTHER Diagnosis Active 2013-12-16 Mem oria 4-20 20:50:00 l OTHER 00:00: Hatch 00 Active 12/16/2013 [facility] ACS Diagnosis Active 2013-12-18 Mem oria 4-20 15:44:00 l ACS 00:00: Maciej 00 Active 12/16/2013 [facility] Stented Problem Resolve 2017-01-22 Mem oria coronary d 04:26:21 l artery Stented Maciej (finding) coronary artery (finding) Resolved Problem 01/22/2017 [facility] Asthma Problem Active 2017-01-22 Memor ia (disorder) 04:26:21 l Asthma Hatch (disorder) Active Problem 01/22/2017 [facility], [facility] Cardiac Problem Active 2017-01-22 Eleazar hilton chest pain 04:26:21 l (finding) Cardiac Herm sho chest pain (finding) Active Problem 01/22/2017 [facility], [facility] Hypertensi Problem Active 2017-01-22 M emoria ve 04:26:21 l disorder, Hatch systemic Hypertensi arterial ve (disorder) disorder, systemic arterial (disorder) Active Problem 01/22/2017 [facility], [facility] Hyperlipid Problem Active 2017-01-22 M emoria emia 04:26:21 l (disorder) Kristopher n Hyperlipid emia (disorder) Active Problem 01/22/2017 [facility], [facility] Myocardial Problem Active 2017-01-22 M emoria infarction 04:26:21 l (disorder) Kristopher n Myocardial infarction (disorder) Active Problem 01/22/2017 [facility], [facility] Smoking Problem Active 2017-01-22 Eleazar hilton cessation 04:26:21 l advice Smoking Hatch (regime/th cessation erapy) advice (regime/th erapy) Active Problem 01/22/2017 [facility], [facility] Substance Problem Active 2017-01-22 Me moria abuse 04:26:21 l (disorder) Kristopher n Substance abuse (disorder) Active Problem 01/22/2017 [facility] Tissue Problem Active 2017-01-22 Memor ia perfusion 04:26:21 l measure Tissue Maciej (observabl perfusion e entity) measure (observabl e entity) Active Problem 01/22/2017 [facility], [facility] Heart Problem Active 2013-12-28 Memor ia disease 01:02:24 l (disorder) Heart Caroline nn disease (disorder) Active Problem 12/28/2013 [facility] INTERMED Diagnosis Active 2013-12-18 M emoria CORONARY 15:44:00 l SYND INTERMED Kristopher n CORONARY SYND Active [facility] ANGINA Diagnosis Active 2015-02-19 Mem oria DECUBITUS 13:44:00 l ANGINA H[place] DECUBITUS Active [facility] HYPOTENSIO Diagnosis Active 2015-03-31 Memoria N NOS 11:41:00 l Maciej HYPOTENSIO N NOS Active [facility] SYNCOPE Diagnosis Active 2017-02-18 Me moria AND 10:16:00 l COLLAPSE SYNCOPE Caroline nn AND COLLAPSE Active [facility] Chest Problem 2017-01-19 2017-01-19 M emoria pain, 01-16 00:39:08 00:39:08 l unspecifie Chest 05:00: Caroline nn d pain, 00 unspecifie d 01/16/2017 01/19/2017 [facility] Urinary Problem 2016-12-01 2016-12-01 Memoria tract 4- 00:38:41 00:38:41 l infection, Urinary 05:00: Her farooq site not tract 00 specified infection, site not specified 11/28/2016 12/01/2016 [facility] Dorsalgia, Problem 2016-12-01 2016-12-01 Memoria unspecifie 4 00:38:41 00:38:41 l d 05:00: Maciej Dorsalgia, 00 unspecifie d 11/28/2016 12/01/2016 [facility] Bitten or Problem 2016-11-09 2016-11-09 Memoria stung by 3-11 03:02:23 03:02:23 l nonvenomou Bitten 06:00: Herm sho s insect or stung 00 and other by nonvenomou nonvenomou s s insect arthropods and other , initial nonvenomou encounter s arthropods , initial encounter 11/06/2016 11/09/2016 [facility] Discharge Problem 2016-04-17 2016-04-17 Memoria Diagnosis: 04-14 03:14:09 03:14:09 l Syncope, 05:00: Maciej near Discharge 00 Diagnosis: Syncope, near 04/14/2016 04/17/2016 [facility] Discharge Problem 2016-03-08 2016-03-08 Memoria Diagnosis: 03-05 04:59:23 04:59:23 l Trichomona 05:00: Kristopher n s Discharge 00 vaginitis Diagnosis: Trichomona s vaginitis 03/05/2016 03/08/2016 [facility] Discharge Problem 2016-03-08 2016-03-08 Memoria Diagnosis: 03-05 04:59:23 04:59:23 l Lumbago 05:00: Maciej Discharge 00 Diagnosis: Lumbago 03/05/2016 03/08/2016 [facility] Discharge Problem 2015-2016-03-03 2016-03-03 Memoria Diagnosis: 7- 00:43:25 00:43:25 l Bronchitis 05:00: Kristopher n Discharge 00 Diagnosis: Bronchitis 02/29/2016 03/03/2016 [facility] Discharge Problem 2015-05-21 2015-05-21 Memoria Diagnosis: 05-18 01:04:08 01:04:08 l Abdominal 05:00: Hatch pain, Discharge 00 acute, Diagnosis: epigastric Abdominal pain, acute, epigastric 05/18/2015 05/21/2015 [facility] Discharge Problem 2015-05-12 2015-05-12 Memoria Diagnosis: 05-09 07:40:44 07:40:44 l Chest pain 05:00: Kristopher n Discharge 00 Diagnosis: Chest pain 05/09/2015 05/12/2015 [facility] Discharge Problem 2015-05-05 2015-05-05 Memoria Diagnosis: 05-02 10:45:36 10:45:36 l Vertigo 05:00: Hatch Discharge 00 Diagnosis: Vertigo 05/02/2015 05/05/2015 [facility] Discharge Problem 2015-05-05 2015-05-05 Memoria Diagnosis: 05-02 10:45:36 10:45:36 l Syncope 05:00: Hatch and Discharge 00 collapse Diagnosis: Syncope and collapse 5 05/05/2015 [facility] Discharge Problem 2015-04-14 2015-04-14 Memoria Diagnosis: 04-11 05:25:30 05:25:30 l Knee pain, 05:00: Kristopher n right Discharge 00 Diagnosis: Knee pain, right 04/11/2015 04/14/2015 [facility] Discharge Problem 2015-04-14 2015-04-14 Memoria Diagnosis: 04-11 05:25:30 05:25:30 l Lumbar 05:00: H[place] spondylosi Discharge 00 s Diagnosis: Lumbar spondylosi s 04/11/2015 04/14/2015 [facility] Discharge Problem 2015-04-14 2015-04-14 Memoria Diagnosis: 04-11 05:25:30 05:25:30 l Anterolist 05:00: Kristopher n hesis Discharge 00 Diagnosis: Anterolist hesis 04/11/2015 04/14/2015 [facility] Discharge Problem 2015-04-14 2015-04-14 Memoria Diagnosis: 04-11 05:25:30 05:25:30 l Accidental 05:00: Kristopher n fall Discharge 00 Diagnosis: Accidental fall 04/11/2015 04/14/2015 [facility] Discharge Problem 2015-04-02 2015-04-02 Memoria Diagnosis: 03-30 00:46:48 00:46:48 l Chronic 05:00: Hatch pain in Discharge 00 right Diagnosis: shoulder Chronic pain in right shoulder 04/02/2015 [facility] Discharge Problem 2015-03-14 2015-03-14 Memoria Diagnosis: 03-11 09:47:20 09:47:20 l Chest wall 05:00: Kristopher n muscle Discharge 00 strain Diagnosis: Chest wall muscle strain 03/11/2015 03/14/2015 [facility] Discharge Problem 2015-03-08 2015-03-08 Memoria Diagnosis: 03-05 04:07:57 04:07:57 l Dyspnea 05:00: Hatch Discharge 00 Diagnosis: Dyspnea 03/05/2015 03/08/2015 [facility] Allergies, Adverse Reactions, Alerts Allergy Allergy Status Severity Reaction(s) Onset Inactive Treating Comm ents Source Name Type Date Date Clinician Penicill Propensi Active [place] ins ty to 01-02 Health adverse 00:00: reaction 00 s to drug penicill penicill Active Memori a ins ins l [place] Social History Social Habit Start Date Stop Date Quantity Comments Source Sex Assigned At [facility] Social History 2015-03-22 2015-03-22 [facility] 02:16:03 02:16:03 Medications Ordered Filled Start Stop Current Ordering Indication Dosage Frequency Signature Comments Components Source Medication Medication Date Date Medication? Clinician (SIG) Name Name metoprolol Yes Other chest 25mg Q.5D Take 1 [place] tartrate 7-11 pain tablet by [facility] (LOPRESSOR) 00:00: mouth 2 25 mg 00 times tablet daily. naproxen Yes Chronic 375mg Take 1 [facility] ris (NAPROSYN) 7-11 bilateral tablet by [facility] 375 mg 00:00: low back mouth 2 [...] Chloride 5-24 2,000 l 0.154 18:00: ml/hr, Hatch MEQ/ML 00 Infuse Injectable Over: 30 Solution [...] PO, l Oral 03:41: BID, X 7 [place] Capsule 00 day, # 14 [Macrobid] cap, 0 Refill(s) Tramadol No Notes: Not Mem oria - to exceed l 03:02: 400mg/day. Maciej 00 (Same As: Ultram) Albuterol No Notes: Memori a 0.833 MG/ML - (Same as: l / 00:23: Duoneb) Maciej Ipratropium 00 [place] 0.167 MG/ML Inhalant Solution [DuoNeb] Saline No Notes: Memoria Flush 0.9% - preservati l 00:23: ve free. Hatch 00 Mupirocin Yes 1 appl, Memor ia 0.02 MG/MG 3-12 TOP, TID, l Topical 02:49: PRN as Maciej Ointment 00 needed, [Bactroban] Apply to affected area(s), X 14 day, # 60 gm, 0 Refill(s) Saline No Notes: Memoria Flush 0.9% 3-12 (Same as: l 00:51: BD Hatch Posiflush) atorvastati No Notes: Eleazar hilton n 2-14 Same as l 03:00: Lipitor Hatch remove No Notes: Memoria patch 2-14 Remove l 03:00: patch 12 Hatch 00 hours after applicatio n each day. metoprolol No Notes: Memor ia tartrate 2-13 (Same as: l 15:00: Lopressor) Hatch 00 12.5 mg=1/2 X 50 mg TAB heparin No Notes: Memoria sodium, 2-13 porcine l porcine 15:00: heparin Hatch 2500 UNT/ML 00 Injectable Solution Protonix No Notes: Memoria 2-13 Tablet l 15:00: should not Hatch 00 be chewed or crushed. (Same as: Protonix) Symbicort No Notes: Memori a 160/4.5 2-13 (Same as: l inhalation 15:00: Symbicort) H ermann aerosol 00 WASTE: with Aerosol - adapter Return to Pharmacy Aspirin 325 No Notes: Eleazar hilton MG Oral 2-13 Take with l Tablet 15:00: food. Maciej Omeprazole No 20 mg, Memor ia 2-13 Route: PO, l 15:00: Drug form: Hatch 00 ECTAB, BID, Dosing Weight 50, kg, Start date: 10/11/16 9:00:00 GALVANIZER ZINC, Duration: 30 day, Stop date: 11/09/16 17:00:00 CDT potassium No Notes: Memori a chloride 2-13 (Same as: l 06:02: K-Dur 20) Hatch 00 "Do Not Crush" With food and [...] Memoria 2-13 (Same as: l 02:07: Colace) Hatch 00 (Do Not Crush) Morphine No Notes: Memoria 2-13 (Same l 02:07: as:MORPhin Maciej 00 e Sulfate) Acetaminoph No Notes: Eleazar hilton en 325 MG / 2-13 (Same as: l Hydrocodone 02:07: [place] Caroline nn Bitartrate 00 325/5) Do 5 [...] 2-12 (Same as: l 19:48: K-Dur 20) Hatch 00 "Do Not Crush" With food and full glass of water Aspirin No Notes: Memoria 2-12 Take with l 18:33: food. Hatch 00 B-3-50 No 50 mg, Memoria 1-18 Route: PO, l 15:00: Daily, Dosing Weight 50, kg, Start date: 09/15/16 9:00:00 GALVANIZER ZINC, Duration: 30 day, Stop date: 10/14/16 9:00:00 GALVANIZER ZINC tramadol Yes 50 mg = 1 Eleazar hilton hydrochlori 8-17 tab, PO, l de 50 MG 06:12: BID, X 15 Herm sho Oral Tablet 00 day, # 30 tab, 0 Refill(s) Acetaminoph No Notes: Eleazar hilton en 325 MG / 8-17 (Same as: l Hydrocodone 05:13: Argyle Caroline nn Bitartrate 00 325/5) Do 5 MG Oral not exceed Tablet 4gm/day of [Argyle acetaminop 5/325] hen. atorvastati No Notes: Eleazar hilton n 7-16 (Same as: l 02:00: Lipitor) Hatch 00 200 ACTUAT No Notes: Memor ia [...] 0.9% 7-15 (Same as: l 02:00: BD [place] Posiflush) Saline No Notes: Memoria Flush 0.9% 7-14 (Same as: l 23:45: BD Hatch 00 Posiflush) Sodium No 1,000 mL, Memori a Chloride 7-14 1,000 l 0.154 20:57: ml/hr, Maciej MEQ/ML 00 Infuse Injectable Over: 1 Solution Hour, Route: IV, ONCE, Priority: STAT, Dosing Weight 50 kg, Start date: 03/11/16 15:57:00 CDT, Duration: 1 doses or times, Stop date: 03/11/16 15:57:00 CDT Sodium No 1,000 mL, Memori a Chloride 7-14 1,000 l 0.154 20:56: ml/hr, Hatch MEQ/ML 00 Infuse Injectable Over: 1 Solution Hour, Route: IV, ONCE, Priority: STAT, Dosing Weight 50 kg, Start date: 03/11/16 15:56:00 CDT, Duration: 1 doses or times, Stop date: 03/11/16 15:56:00 CDT Saline No Notes: Memoria Flush 0.9% 03-11 (Same as: l 20:05: BD Maciej 00 Posiflush) Nitroglycer No Notes: Eleazar hilton in 03-11 (Same l 20:05: as:Nitroqu Hatch ick, Nitrostat) "Do Not Crush" Sublingual tablet [...] tab, PO, l Tablet 02:07: BID, PRN Hatch [Naprosyn] 00 Pain Score 6-10, # 60 tab, 0 Refill(s) Zofran No Notes: Memoria 03-06 (Same as: l 00:55: Zofran Maciej 00 ODT) Acetaminoph No Notes: Eleazar hilton en 325 MG / 03-06 (Same as: l Hydrocodone 00:55: Argyle Caroline nn Bitartrate 00 325/5) Do 5 MG Oral not exceed Tablet 4gm/day of [Argyle acetaminop 5/325] hen. Flagyl No Notes: Memoria [...] (Same as: l MEQ 23:48: K-Dur 20) Hatch Extended 00 "Do Not Release Crush" Tablet With food and full glass of water Albuterol No Notes: Memori a 0.833 MG/ML 02-28 (Same as: l / 22:53: Duoneb) Hatch Ipratropium 00 [place] 0.167 MG/ML Inhalant Solution [DuoNeb] Symbicort Yes [...] tab, PO, l Tablet 13:20: Daily, 0 Hatch 00 Refill(s) atorvastati No Notes: Eleazar hilton n -08 (Same as: l 03:00: Lipitor) Hatch 00 Solu-Medrol No Notes: Eleazar hilton 1-07 (Same l 22:00: as:Solu-ME Hatch 00 DROL, A-Methapre d) 24 HR No Notes: Memoria Metoprolol - (Same as: l Tartrate 25 15:00: Toprol XL) Hatch MG Extended 00 Do Not Release Crush Tablet [Toprol] clopidogrel No Notes: Eleazar hilton -07 (Same As: l 15:00: Plavix) Hatch 00 Protonix No Notes: Memoria -07 Tablet l 15:00: should not Hatch 00 be chewed or crushed. (Same as: Protonix) Aspirin 325 No Notes: Eleazar hilton MG Oral 09-04 Take with l Tablet 15:00: food. Omeprazole No 20 mg, Memor ia 09-04 Route: PO, l 15:00: Drug form: Hatch ECTAB, BID, Dosing Weight 50.92, kg, Start [...] l / 14:00: Duoneb) Maciej Ipratropium 00 [place] 0.167 MG/ML Inhalant Solution methylPREDN No Notes: Eleazar hilton ISolone 09-04 (Same l SODium 14:00: as:Solu-ME Caroline nn SUCCinate 00 DROL, A-Methapre d) methylPREDN No Notes: Eleazar hilton ISolone 09-04 (Same l SODium 04:05: as:Solu-ME Caroline nn SUCCinate 00 DROL, A-Methapre d) Albuterol No Notes: Memori a 0.833 MG/ML 09-04 (Same as: l / 04:05: Duoneb) Hatch Ipratropium 00 [place] 0.167 MG/ML Inhalant Solution Saline No Notes: [...] tab, PO, l tablet 17:40: Daily, # Hatch 00 30 tab, 1 Refill(s) atorvastati 2014-08 [...] as: l / 03:38: Duoneb) Ipratropium 00 [place] 0.167 MG/ML Inhalant Solution Sodium 2014-08 No 250 mL, Memoria Chloride -18 Route: l 0.9% IV 03:26: IVPB, Maciej Start date: 07/15/15 21:26:00, Duration: 30 day, Stop date: 08/14/15 21:25:00, PRN Line Flush BD Normal 2014-08 No Notes: Memori a Saline 09-15 (Same as: l Flush 03:26: BD Hatch 00 Posiflush) Nitroglycer 2014-08 No Notes: Eleazar hilton in 09-15 (Same l 03:23: as:Nitroqu Maciej 00 ick, Nitrostat) "Do Not Crush" Sublingual tablet Ibuprofen 2014-08 No Notes: Memori a 09-15 (Same as: l 03:20: Motrin) Hatch 00 "Do Not Crush" Give with food. Baclofen 2014-08 No Notes: Memoria 09-15 (Same As: l 03:20: Lioresal) Hatch 00 200 ACTUAT 2014-08 No Notes: Memor ia Albuterol 09-15 Albuterol l 0.09 03:20: 90 Hatch MG/ACTUAT 00 microgram/ Metered inh 8gm Dose [...] 0.9% 1-17 (Same as: l 20:15: BD Hatch 00 Posiflush) Sodium No 500 mL, Memoria Chloride 9-20 500 ml/hr, l 0.154 21:02: Infuse Hatch MEQ/ML 00 Over: 1 Injectable Hour, Solution [...] tab, PO, l tablet 23:45: TID, PRN Hatch 00 for dizziness, X 20 day, # [...] / 8- Same as l Hydrocodone 17:21: Argyle Caroline nn Bitartrate 00 325-7.5mg 7.5 MG Oral Do not Tablet exceed [Argyle 4gm/day of 7.5/325] acetaminop hen. ibuprofen Yes [...] Memori a - (Same l 17:35: as:Chronul H[place] 00 ac) atorvastati No Notes: Eleazar hilton [...] Refill(s) 200 ACTUAT Yes 1 puff, Eleazar ihlton Albuterol 7-25 INHALATION l 0.09 02:19: , Q4H, PRN Maciej MG/ACTUAT 00 for Metered wheezing, Dose # 9 gm, 0 Inhaler Refill(s) Ondansetron No Notes: Eleazar hilton 7-25 (Same as: l 02:12: Zofran) Hatch 00 MEDICATION WASTE Product Size: 4 mg Product Wasted: ___ mg Docusate No Notes: Memoria 7-25 (Same as: l 02:12: Colace) Hatch 00 (Do Not Crush) Acetaminoph No Notes: Do M emoria en 7-25 not exceed l 02:12: 4 gm/day. Maciej 00 (Same as: Tylenol) Budesonide No Notes: Memor ia 0.25 MG/ML 7-25 (Same As: l Inhalant 01:00: Pulmicort) Her farooq Solution 00 [Pulmicort] Albuterol No Notes: Memori a 0.833 MG/ML 7-25 (Same as: l / 01:00: Duoneb) Maciej Ipratropium 00 [place] 0.167 MG/ML Inhalant Solution [DuoNeb] Potassium No Notes: Memori a Chloride 24 (Same as: l 1.33 MEQ/ML 23:15: Potassium H ermann Oral 00 Chloride) Solution Sodium No 1,000 mL, Memori a Chloride 24 1,000 l 0.154 22:23: ml/hr, Hatch MEQ/ML 00 Infuse Injectable Over: 1 Solution hr, Route: IV, ONCE, Priority: STAT, Dosing Weight 50 kg, Start date: 03/21/15 17:23:00, Duration: 1 doses or times, Stop date: 03/21/15 17:23:00 Sodium No 1,000 mL, Memori a Chloride 24 1,000 l 0.154 21:12: ml/hr, Hatch MEQ/ML 00 Infuse Injectable Over: 1 Solution hr, Route: IV, 1,000, Drug form: INJ, ONCE, Priority: STAT, Dosing Weight 50 kg, Start date: 03/21/15 16:12:00, Duration: 1 doses or times, Stop date: 03/21/15 16:12:00 Ondansetron No Notes: Eleazar hitlon 24 (Same as: l 20:43: Zofran) Hatch 00 MEDICATION WASTE Product Size: 4 mg Product Wasted: ___ mg Morphine No Notes: Memoria -24 (Same l 20:43: as:MORPhin Hatch 00 e Sulfate) Aspirin No Notes: Memoria [...] Memoria 7-14 Take with l 20:32: food. Hatch 00 Morphine No Notes: Memoria 7-14 (Same l 20:32: as:MORPhin Maciej 00 e Sulfate) Ondansetron No Notes: Eleazar hilton 7-14 (Same as: l 20:32: Zofran) MEDICATION WASTE Product Size: 4 mg Product Wasted: ___ mg Saline No Notes: Memoria Flush 0.9% 03-11 (Same as: l 20:32: BD Maicej 00 Posiflush) Famotidine No 20 mg, 1 Mem oria 20 MG Oral 7-08 tab, l Tablet 14:00: Route: PO, Caroline nn [Pepcid] 00 BID, Dosing Weight 50, kg, Start date: 03/05/15 9:00:00, Duration: 30 day, Stop date: 04/03/15 17:00:00 MDI Inhaler Yes Special Mem oria Spacer 03-05 Instructio l 09:13: ns: Use as Hatch directed 200 ACTUAT Yes 1 puff, Eleazar hilton Albuterol 08 INHALATION l 0.09 09:12: , Q4H, PRN Hatch MG/ACTUAT 00 for Metered wheezing, Dose # [...] Memoria 6-30 (Same As: l 14:00: Plavix) Amciej 00 Omeprazole No 20 mg, Memor ia [...] tab, PO, l Tablet 13:32: Daily, # Hatch [Plavix] 00 30 tab, 0 Refill(s) Protonix [...] tab, PO, l tablet 20:24: BID, PRN Hatch 00 Pain, # 30 tab, 0 Refill(s) [...] PO, l oral tablet 20:24: Bedtime, # Hatch 00 30 tab, 0 Refill(s) omeprazole Yes [...] PO, l oral tablet 17:00: Bedtime, # Hatch 00 60 tab, 0 Refill(s) Nicotine No Notes: Memoria 6-22 (Same as: l 14:00: Habitrol) Hatch 00 "Remove old patch before applicatio n [...] Memori a 02-17 (Same As: l 02:08: DulcolaxDeandreHatch 00 Bisco-Lax) Ondansetron No Notes: Eleazar hilton [...] / 02-17 (Same as: l Hydrocodone 02:06: Arg[place] Caroline nn Bitartrate 00 325/5) Do 5 MG Oral not exceed Tablet 4gm/day of acetaminop hen. Morphine No Notes: Memoria 02-17 (Same l 02:06: as:MORPhin Maciej 00 e Sulfate) Sodium No 1,000 mL, Memori a Chloride 02-17 Rate: 125 l 0.154 02:06: ml/hr, Hatch MEQ/ML 00 Infuse Injectable over: 8 Solution [...] 02-17 Route: l 0.9% IV 00:52: IVPB, Hatch 00 Start date: 02/16/15 19:52:00, Duration: 30 day, Stop date: 03/18/15 19:51:00, PRN Line Flush BD Normal No Notes: Memori a Saline 02-17 (Same as: l Flush 00:52: BD Hatch Posiflush) Morphine No Notes: Memoria 02-17 (Same l 00:28: as:MORPhin Maciej 00 e Sulfate) Nitroglycer No Notes: Eleazar hilton in 02-17 (Same l 00:28: as:Nitroqu Maciej 00 ick, Nitrostat) "Do Not Crush" Sublingual tablet Aspirin No Notes: (Do Eleazar hilton 02-16 Not Crush) l 22:49: Do not Hatch 00 crush or chew. Ondansetron No Notes: Eleazar hilton 4-26 (Same as: l 21:22: Zofran) Morphine No Notes: Memoria 4-26 (Same l 21:22: as:MORPhin e Sulfate) Aspirin / No Notes: Memori a Calcium 4-26 Take with l Carbonate 21:22: food. Aspirin 81 Yes 81 mg = 1 Me moria MG Enteric 4-21 tab, PO, l Coated 20:08: Daily, # Hatch Tablet 00 90 tab, 0 Refill(s) metoprolol Yes 12.5 mg = Me moria tartrate 25 4-21 0.5 tab, l mg oral 20:08: PO, BID, # Herm sho tablet 00 90 tab, 0 Refill(s) clopidogrel Yes 75 mg = 1 M emoria 75 mg oral 4-21 tab, PO, l tablet 20:08: Daily, # Hatch 00 90 tab, 0 Refill(s) atorvastati Yes [...] n 12-17 (Same As: l 03:28: Lipitor) Hatch 00 Saline No Notes: Memoria Flush 0.9% [...] tab, PO, l tablet 01:48: Daily, 0 Maciej 00 Refill(s) Metoprolol No 12.5 mg = Me moria Tartrate 25 12-17 0.5 tab, l mg oral 01:47: PO, BID, 0 Herm sho tablet 00 Refill(s) Aspirin Low No = 1 tab, Me moria Dose 81 mg 12-17 PO, Daily, l oral tablet 01:46: 0 Kristopher n 00 Refill(s) Sodium No 1,000 mL, Memori a Chloride 20 1,000 l 0.154 23:43: ml/hr, Hatch MEQ/ML 00 Infuse Injectable Over: 1 Solution hr, Route: IV, 1,000, Drug form: INJ, ONCE, Priority: STAT, Dosing Weight 48.636 kg, Start date: 12/16/13 18:43:00, Duration: 1 doses or times, Stop date: 12/16/13 18:43:00 Iohexol No [facility] 20 Instructio l 21:17: ns: Dose = [place] 00 2.2ml/kg, Max dose = 100ml -- [...] n 3-14 tab, l 02:00: Route: PO, [place] 00 Drug form: TAB, Bedtime, Dosing Weight [...] PO, l oral tablet 20:52: Bedtime, # [place] 00 30 tab, 0 Refill(s) Aspirin 81 [...] 7:06:00, Duration: 30 day, Stop date: 12/08/13 7:05:00([facility] as: BD Posiflush) Nitroglycer No 0.4 mg, [...] Systolic (mm Hg) 2017-01-19 22:28:00 [facility] [place] Diastolic (mm Hg) 2017-01-19 22:28:00 [facility] Respitory Rate 2017-01-19 22:28:00 [facility] Respitory Rate 2017-01-19 21:00:00 [facility] [place] Systolic (mm Hg) 2017-01-19 20:00:00 [facility] Diastolic (mm Hg) 2017-01-19 20:00:00 [facility] [place] Weight 2017-01-19 17:23:00 [facility] BMI Calculated 2017-01-19 17:23:00 [facility] [place] Height 2017-01-19 17:23:00 152.4 cm [facility] Temperature Oral (F) 2017-01-19 17:23:00 97.0 F [facility] Heart Rate 2017-01-19 17:23:00 [facility] Systolic (mm Hg) 2017-01-17 02:10:00 [facility] [place] Diastolic (mm Hg) 2017-01-17 02:10:00 [facility] Respitory Rate 2017-01-17 02:10:00 [facility] [place] Systolic (mm Hg) 2017-01-17 01:21:00 [facility] [place] Diastolic (mm Hg) 2017-01-17 01:21:00 [facility] Respitory Rate 2017-01-17 01:21:00 [facility] Temperature Oral (F) 2017-01-17 01:21:00 98.1 F [facility] Systolic (mm Hg) 2017-01-17 00:28:00 [facility] [place] Diastolic (mm Hg) 2017-01-17 00:28:00 [facility] Respitory Rate 2017-01-17 00:28:00 [facility] [place] Heart Rate 2017-01-16 23:24:00 [facility] Temperature Oral (F) 2017-01-16 23:24:00 98 F [facility] Weight 2017-01-16 23:24:00 [facility] Heart Rate 2016-11-29 03:44:00 [facility] Systolic (mm Hg) 2016-11-29 03:44:00 [facility] Diastolic (mm Hg) 2016-11-29 03:44:00 [facility] Respitory Rate 2016-11-29 03:44:00 [facility] Temperature Oral (F) 2016-11-29 03:44:00 98.7 F [facility] Heart Rate 2016-11-29 03:24:00 [facility] Respitory Rate 2016-11-29 03:24:00 [facility] [place] Systolic (mm Hg) 2016-11-29 03:24:00 [facility] Diastolic (mm Hg) 2016-11-29 03:24:00 [facility] [place] Heart Rate 2016-11-29 02:51:00 [facility] Respitory Rate 2016-11-29 02:51:00 [facility] [place] Systolic (mm Hg) 2016-11-29 02:51:00 [facility] [place] Diastolic (mm Hg) 2016-11-29 02:51:00 [facility] Weight 2016-11-29 00:21:00 [facility] BMI Calculated 2016-11-29 00:21:00 [facility] Height 2016-11-29 00:21:00 152.4 cm [facility] Temperature Oral (F) 2016-11-29 00:21:00 98.6 F [facility] Respitory Rate 2016-11-07 02:47:00 [facility] Heart Rate 2016-11-07 02:47:00 [facility] [place] Temperature Oral (F) 2016-11-07 02:47:00 98.2 F [facility] Systolic (mm Hg) 2016-11-07 02:47:00 [facility] Diastolic (mm Hg) 2016-11-07 02:47:00 [facility] [place] Heart Rate 2016-11-07 02:22:00 [facility] Respitory Rate 2016-11-07 02:22:00 [facility] [place] Systolic (mm Hg) 2016-11-07 02:22:00 [facility] [place] Diastolic (mm Hg) 2016-11-07 02:22:00 [facility] Weight 2016-11-06 23:37:00 [facility] Heart Rate 2016-11-06 23:37:00 [facility] Temperature Oral (F) 2016-11-06 23:37:00 98.3 F [facility] Respitory Rate 2016-11-06 23:37:00 [facility] Systolic (mm Hg) 2016-11-06 23:37:00 [facility] Diastolic (mm Hg) 2016-11-06 23:37:00 [facility] Respitory Rate 2016-10-11 18:24:00 [facility] [place] Temperature Oral (F) 2016-10-11 18:24:00 97.9 F [facility] Systolic (mm Hg) 2016-10-11 18:24:00 [facility] [place] Diastolic (mm Hg) 2016-10-11 18:24:00 [facility] Heart Rate 2016-10-11 18:24:00 [facility] Heart Rate 2016-10-11 13:53:00 [facility] Systolic (mm Hg) 2016-10-11 13:53:00 [facility] [place] Diastolic (mm Hg) 2016-10-11 13:53:00 [facility] [place] Temperature Oral (F) 2016-10-11 13:53:00 98.1 F [facility] Temperature Oral (F) 2016-10-11 10:16:00 99.0 F [facility] Respitory Rate 2016-10-11 10:16:00 [facility] Heart Rate 2016-10-11 10:16:00 [facility] Systolic (mm Hg) 2016-10-11 10:16:00 [facility] Diastolic (mm Hg) 2016-10-11 10:16:00 [facility] Weight 2016-10-11 06:46:00 [facility] BMI Calculated 2016-10-11 06:46:00 [facility] [place] Height 2016-10-11 06:46:00 152.4 cm [facility] Respitory Rate 2016-10-11 06:39:00 [facility] Height 2016-10-10 17:48:00 152.4 cm [facility] BMI Calculated 2016-10-10 17:48:00 [facility] [place] Weight 2016-10-10 17:48:00 [facility] BMI Calculated 2016-09-15 04:26:00 [facility] [place] Weight 2016-09-15 04:26:00 [facility] [place] Height 2016-09-15 04:26:00 152.4 cm [facility] Systolic (mm Hg) 2016-09-15 04:26:00 [facility] [place] Diastolic (mm Hg) 2016-09-15 04:26:00 [facility] [place] Respitory Rate 2016-09-15 04:26:00 [facility] Heart Rate 2016-09-15 04:26:00 [facility] [place] Temperature Oral (F) 2016-09-15 04:26:00 98.5 F [facility] Respitory Rate 2016-04-14 06:22:00 [facility] Temperature Oral (F) 2016-04-14 06:22:00 98.7 F [facility] Systolic (mm Hg) 2016-04-14 06:22:00 [facility] [place] Diastolic (mm Hg) 2016-04-14 06:22:00 [facility] Heart Rate 2016-04-14 06:22:00 [facility] BMI Calculated 2016-04-14 02:12:00 [facility] Weight 2016-04-14 02:12:00 [facility] Temperature Oral (F) 2016-04-14 02:12:00 99.2 F [facility] Height 2016-04-14 02:12:00 152.4 cm [facility] Respitory Rate 2016-04-14 02:12:00 [facility] [place] Systolic (mm Hg) 2016-04-14 02:12:00 [facility] Diastolic (mm Hg) 2016-04-14 02:12:00 [facility] [place] Heart Rate 2016-04-14 02:12:00 [facility] Temperature Oral (F) 2016-03-12 17:00:00 97.8 F [facility] Heart Rate 2016-03-12 17:00:00 [facility] Respitory Rate 2016-03-12 17:00:00 [facility] [place] Systolic (mm Hg) 2016-03-12 17:00:00 [facility] Diastolic (mm Hg) 2016-03-12 17:00:00 [facility] Respitory Rate 2016-03-12 12:54:00 [facility] [place] Systolic (mm Hg) 2016-03-12 12:30:00 [facility] [place] Diastolic (mm Hg) 2016-03-12 12:30:00 [facility] Respitory Rate 2016-03-12 12:30:00 [facility] Heart Rate 2016-03-12 12:30:00 [facility] Temperature Oral (F) 2016-03-12 12:30:00 98.2 F [facility] Temperature Oral (F) 2016-03-12 10:26:00 98.0 F [facility] Heart Rate 2016-03-12 10:26:00 [facility] Systolic (mm Hg) 2016-03-12 10:26:00 [facility] [place] Diastolic (mm Hg) 2016-03-12 10:26:00 [facility] Height 2016-03-11 19:45:00 152.4 cm [facility] BMI Calculated 2016-03-11 19:45:00 [facility] [place] Weight 2016-03-11 19:45:00 [facility] Respitory Rate 2016-03-06 01:44:00 [facility] [place] Systolic (mm Hg) 2016-03-06 01:44:00 [facility] [place] Diastolic (mm Hg) 2016-03-06 01:44:00 [facility] [place] Heart Rate 2016-03-06 01:44:00 [facility] Temperature Oral (F) 2016-03-06 01:44:00 98.1 F [facility] BMI Calculated 2016-03-05 21:55:00 [facility] Weight 2016-03-05 21:55:00 [facility] Systolic (mm Hg) 2016-03-05 21:55:00 [facility] [place] Diastolic (mm Hg) 2016-03-05 21:55:00 [facility] Heart Rate 2016-03-05 21:55:00 [facility] [place] Height 2016-03-05 21:55:00 152.4 cm [facility] Temperature Oral (F) 2016-03-05 21:55:00 98.3 F [facility] Respitory Rate 2016-03-05 21:55:00 [facility] [place] Respitory Rate 2016-03-01 01:23:00 [facility] [place] Systolic (mm Hg) 2016-03-01 01:23:00 [facility] Diastolic (mm Hg) 2016-03-01 01:23:00 [facility] [place] Temperature Oral (F) 2016-03-01 01:23:00 98.2 F [facility] Heart Rate 2016-03-01 01:23:00 [facility] Respitory Rate 2016-02-29 23:25:00 [facility] [place] Temperature Oral (F) 2016-02-29 22:27:00 98.3 F [facility] Heart Rate 2016-02-29 22:27:00 [facility] Respitory Rate 2016-02-29 22:27:00 [facility] Systolic (mm Hg) 2016-02-29 22:27:00 [facility] [place] Diastolic (mm Hg) 2016-02-29 22:27:00 [facility] Respitory Rate 2015-09-05 14:47:00 [facility] [place] Systolic (mm Hg) 2015-09-05 14:47:00 [facility] [place] Diastolic (mm Hg) 2015-09-05 14:47:00 [facility] Heart Rate 2015-09-05 14:47:00 [facility] Weight 2015-09-05 11:00:00 [facility] Systolic (mm Hg) 2015-09-05 10:00:00 [facility] [place] Diastolic (mm Hg) 2015-09-05 10:00:00 [facility] [place] Respitory Rate 2015-09-05 10:00:00 [facility] Heart Rate 2015-09-05 10:00:00 [facility] Respitory Rate 2015-09-05 06:00:00 [facility] [place] Systolic (mm Hg) 2015-09-05 06:00:00 [facility] Diastolic (mm Hg) 2015-09-05 06:00:00 [facility] Heart Rate 2015-09-05 06:00:00 [facility] Weight 2015-09-04 11:00:00 [facility] Weight 2015-09-04 09:15:00 [facility] BMI Calculated 2015-09-04 09:15:00 [facility] [place] Height 2015-09-04 09:15:00 160.02 cm [facility] Temperature Oral (F) 2015-09-04 09:06:00 98.3 F [facility] Height 2015-09-04 03:35:00 152.4 cm [facility] BMI Calculated 2015-09-04 03:35:00 [facility] Temperature Oral (F) 2015-09-04 03:35:00 98.7 F [facility] Systolic (mm Hg) 2015-07-16 13:56:00 [facility] [place] Diastolic (mm Hg) 2015-07-16 13:56:00 [facility] Respitory Rate 2015-07-16 13:56:00 [facility] Heart Rate 2015-07-16 13:56:00 [facility] Temperature Oral (F) 2015-07-16 13:56:00 98.0 F [facility] Systolic (mm Hg) 2015-07-16 13:55:00 [facility] Diastolic (mm Hg) 2015-07-16 13:55:00 [facility] [place] Respitory Rate 2015-07-16 13:55:00 [facility] Heart Rate 2015-07-16 13:55:00 [facility] Temperature Oral (F) 2015-07-16 13:55:00 97.4 F [facility] Systolic (mm Hg) 2015-07-16 10:00:00 [facility] [place] Diastolic (mm Hg) 2015-07-16 10:00:00 [facility] Respitory Rate 2015-07-16 10:00:00 [facility] Heart Rate 2015-07-16 10:00:00 [facility] Temperature Oral (F) 2015-07-16 10:00:00 97.9 F [facility] Height 2015-07-16 01:30:00 152.4 cm [facility] Weight 2015-07-16 01:30:00 [facility] BMI Calculated 2015-07-16 01:30:00 [facility] [place] Height 2015-07-15 18:10:00 152.4 cm [facility] BMI Calculated 2015-07-15 18:10:00 [facility] [place] Weight 2015-07-15 18:10:00 [facility] Weight 2015-07-05 04:10:00 [facility] [place] Height 2015-07-05 04:10:00 152.4 cm [facility] BMI Calculated 2015-07-05 04:10:00 [facility] Temperature Oral (F) 2015-07-05 04:10:00 98.3 F [facility] Respitory Rate 2015-07-05 04:10:00 [facility] Heart Rate 2015-07-05 04:10:00 [facility] [place] Systolic (mm Hg) 2015-07-05 04:10:00 [facility] Diastolic (mm Hg) 2015-07-05 04:10:00 [facility] BMI Calculated 2015-07-04 18:05:00 [facility] Weight 2015-07-04 18:05:00 [facility] [place] Height 2015-07-04 18:05:00 152.4 cm [facility] Temperature Oral (F) 2015-07-04 18:05:00 97.9 F [facility] Respitory Rate 2015-07-04 18:05:00 [facility] Heart Rate 2015-07-04 18:05:00 [facility] [place] Systolic (mm Hg) 2015-07-04 18:05:00 [facility] Diastolic (mm Hg) 2015-07-04 18:05:00 [facility] [place] BMI Calculated 2015-06-04 04:13:00 [facility] [place] Weight 2015-06-04 04:13:00 [facility] Height 2015-06-04 04:13:00 152.4 cm [facility] Temperature Oral (F) 2015-06-04 04:13:00 98.8 F [facility] Respitory Rate 2015-06-04 04:13:00 [facility] Heart Rate 2015-06-04 04:13:00 [facility] Systolic (mm Hg) 2015-06-04 04:13:00 [facility] Diastolic (mm Hg) 2015-06-04 04:13:00 [facility] [place] Systolic (mm Hg) 2015-05-18 22:47:00 [facility] Diastolic (mm Hg) 2015-05-18 22:47:00 [facility] Temperature Oral (F) 2015-05-18 22:47:00 96.6 F [facility] Heart Rate 2015-05-18 22:47:00 [facility] Respitory Rate 2015-05-18 22:47:00 [facility] Systolic (mm Hg) 2015-05-18 22:30:00 [facility] [place] Diastolic (mm Hg) 2015-05-18 22:30:00 [facility] Systolic (mm Hg) 2015-05-18 21:00:00 [facility] Diastolic (mm Hg) 2015-05-18 21:00:00 [facility] Temperature Oral (F) 2015-05-18 21:00:00 98.1 F [facility] Respitory Rate 2015-05-18 21:00:00 [facility] [place] Temperature Oral (F) 2015-05-18 19:21:00 98.2 F [facility] Heart Rate 2015-05-18 19:21:00 [facility] Respitory Rate 2015-05-18 19:21:00 [facility] Heart Rate 2015-05-18 17:10:00 [facility] Respitory Rate 2015-05-09 20:00:00 [facility] [place] Systolic (mm Hg) 2015-05-09 20:00:00 [facility] [place] Diastolic (mm Hg) 2015-05-09 20:00:00 [facility] [place] Temperature Oral (F) 2015-05-09 20:00:00 97.5 F [facility] Temperature Oral (F) 2015-05-09 19:10:00 97.5 F [facility] Systolic (mm Hg) 2015-05-09 19:10:00 [facility] [place] Diastolic (mm Hg) 2015-05-09 19:10:00 [facility] Respitory Rate 2015-05-09 19:10:00 [facility] Systolic (mm Hg) 2015-05-09 18:41:00 [facility] [place] Diastolic (mm Hg) 2015-05-09 18:41:00 [facility] Weight 2015-05-09 17:37:00 [facility] BMI Calculated 2015-05-09 17:37:00 [facility] Height 2015-05-09 17:37:00 152.4 cm [facility] Temperature Oral (F) 2015-05-09 17:37:00 98.9 F [facility] Respitory Rate 2015-05-09 17:37:00 [facility] Heart Rate 2015-05-09 17:37:00 [facility] [place] Systolic (mm Hg) 2015-05-03 00:04:00 [facility] [place] Diastolic (mm Hg) 2015-05-03 00:04:00 [facility] Heart Rate 2015-05-03 00:04:00 [facility] Respitory Rate 2015-05-03 00:04:00 [facility] Temperature Oral (F) 2015-05-03 00:04:00 98.5 F [facility] Heart Rate 2015-05-02 21:17:00 [facility] Respitory Rate 2015-05-02 21:17:00 [facility] Systolic (mm Hg) 2015-05-02 21:17:00 [facility] Diastolic (mm Hg) 2015-05-02 21:17:00 [facility] Heart Rate 2015-05-02 20:24:00 [facility] Temperature Oral (F) 2015-05-02 20:24:00 98.1 F [facility] Systolic (mm Hg) 2015-05-02 20:24:00 [facility] Diastolic (mm Hg) 2015-05-02 20:24:00 [facility] Respitory Rate 2015-05-02 20:24:00 [facility] [place] Temperature Oral (F) 2015-05-02 18:35:00 98.9 F [facility] Systolic (mm Hg) 2015-04-11 19:45:00 [facility] [place] Diastolic (mm Hg) 2015-04-11 19:45:00 [facility] [place] Temperature Oral (F) 2015-04-11 19:45:00 98.7 F [facility] Respitory Rate 2015-04-11 19:45:00 [facility] Heart Rate 2015-04-11 19:45:00 [facility] Weight 2015-04-11 16:35:00 [facility] Temperature Oral (F) 2015-04-11 16:35:00 98.4 F [facility] Systolic (mm Hg) 2015-04-11 16:35:00 [facility] [place] Diastolic (mm Hg) 2015-04-11 16:35:00 [facility] [place] Respitory Rate 2015-04-11 16:35:00 [facility] Heart Rate 2015-04-11 16:35:00 [facility] [place] Systolic (mm Hg) 2015-03-30 22:06:00 [facility] [place] Diastolic (mm Hg) 2015-03-30 22:06:00 [facility] Temperature Oral (F) 2015-03-30 22:06:00 97.9 F [facility] Heart Rate 2015-03-30 22:06:00 [facility] Respitory Rate 2015-03-30 22:06:00 [facility] BMI Calculated 2015-03-30 19:44:00 [facility] [place] Height 2015-03-30 19:44:00 152.4 cm [facility] Systolic (mm Hg) 2015-03-30 19:44:00 [facility] Diastolic (mm Hg) 2015-03-30 19:44:00 [facility] Respitory Rate 2015-03-30 19:44:00 [facility] Heart Rate 2015-03-30 19:44:00 [facility] Weight 2015-03-30 19:44:00 [facility] Temperature Oral (F) 2015-03-30 19:44:00 97.9 F [facility] Respitory Rate 2015-03-24 21:57:00 [facility] Temperature Oral (F) 2015-03-24 21:57:00 97.9 F [facility] Heart Rate 2015-03-24 21:57:00 [facility] Systolic (mm Hg) 2015-03-24 21:57:00 [facility] [place] Diastolic (mm Hg) 2015-03-24 21:57:00 [facility] Heart Rate 2015-03-24 17:28:00 [facility] Temperature Oral (F) 2015-03-24 17:28:00 98.8 F [facility] Respitory Rate 2015-03-24 17:28:00 [facility] Systolic (mm Hg) 2015-03-24 17:28:00 [facility] [place] Diastolic (mm Hg) 2015-03-24 17:28:00 [facility] Heart Rate 2015-03-24 13:08:00 [facility] Temperature Oral (F) 2015-03-24 13:08:00 98.4 F [facility] Respitory Rate 2015-03-24 13:08:00 [facility] [place] Systolic (mm Hg) 2015-03-24 13:08:00 [facility] [place] Diastolic (mm Hg) 2015-03-24 13:08:00 [facility] BMI Calculated 2015-03-22 01:41:00 [facility] Weight 2015-03-22 01:41:00 [facility] Height 2015-03-22 01:41:00 152.4 cm [facility] BMI Calculated 2015-03-21 18:42:00 [facility] Weight 2015-03-21 18:42:00 [facility] Height 2015-03-21 18:42:00 152.4 cm [facility] Systolic (mm Hg) 2015-03-11 22:39:00 [facility] Diastolic (mm Hg) 2015-03-11 22:39:00 [facility] Respitory Rate 2015-03-11 22:39:00 [facility] [place] Heart Rate 2015-03-11 22:39:00 [facility] Temperature Oral (F) 2015-03-11 22:39:00 98.1 F [facility] BMI Calculated 2015-03-11 19:44:00 [facility] [place] Weight 2015-03-11 19:44:00 [facility] Systolic (mm Hg) 2015-03-11 19:44:00 [facility] Diastolic (mm Hg) 2015-03-11 19:44:00 [facility] Temperature Oral (F) 2015-03-11 19:44:00 97.9 F [facility] Heart Rate 2015-03-11 19:44:00 [facility] Respitory Rate 2015-03-11 19:44:00 [facility] [place] Height 2015-03-11 19:44:00 152.4 cm [facility] Temperature Oral (F) 2015-03-05 10:15:00 97.9 F [facility] Systolic (mm Hg) 2015-03-05 10:15:00 [facility] Diastolic (mm Hg) 2015-03-05 10:15:00 [facility] Respitory Rate 2015-03-05 10:15:00 [facility] Respitory Rate 2015-03-05 09:53:00 [facility] Temperature Oral (F) 2015-03-05 09:53:00 97.8 F [facility] Systolic (mm Hg) 2015-03-05 09:53:00 [facility] [place] Diastolic (mm Hg) 2015-03-05 09:53:00 [facility] Respitory Rate 2015-03-05 06:30:00 [facility] [place] Systolic (mm Hg) 2015-03-05 06:30:00 [facility]za[facility] [place] Diastolic (mm Hg) 2015-03-05 06:30:00 [facility] [place] Temperature Oral (F) 2015-03-05 06:20:00 97.7 F [facility] Heart Rate 2015-03-05 06:20:00 [facility] Heart Rate 2015-03-05 05:46:00 [facility] Height 2015-03-05 05:46:00 152.4 cm [facility] BMI Calculated 2015-03-05 05:46:00 [facility] Weight 2015-03-05 05:46:00 [facility] Systolic (mm Hg) 2015-02-25 20:55:00 [facility] Diastolic (mm Hg) 2015-02-25 20:55:00 [facility] Temperature Oral (F) 2015-02-25 20:55:00 97.9 F [facility] Heart Rate 2015-02-25 20:55:00 [facility] Respitory Rate 2015-02-25 20:55:00 [facility] Temperature Oral (F) 2015-02-25 17:18:00 98 F [facility] Heart Rate 2015-02-25 17:18:00 [facility] Respitory Rate 2015-02-25 17:18:00 [facility] [place] Systolic (mm Hg) 2015-02-25 17:18:00 Ele[facility] rial [...] [facility] BMI Calculated 2015-02-24 16:11:00 [facility] Weight 2015-02-24 16:11:00 [facility] Heart Rate 2015-02-18 20:17:00 [facility] Temperature Oral (F) 2015-02-18 20:17:00 97.3 F [facility] Systolic (mm Hg) 2015-02-18 20:17:00 [facility] [place] Diastolic (mm Hg) 2015-02-18 20:17:00 [facility] Respitory Rate 2015-02-18 20:17:00 [facility] Heart Rate 2015-02-18 16:13:00 [facility] Respitory Rate 2015-02-18 16:13:00 [facility] Systolic (mm Hg) 2015-02-18 16:13:00 [facility] [place] Diastolic (mm Hg) 2015-02-18 16:13:00 [facility] Temperature Oral (F) 2015-02-18 16:13:00 97.5 F [facility] Temperature Oral (F) 2015-02-18 12:19:00 97.9 F [facility] Systolic (mm Hg) 2015-02-18 12:19:00 [facility] Diastolic (mm Hg) 2015-02-18 12:19:00 [facility] Respitory Rate 2015-02-18 12:19:00 [facility] Heart Rate 2015-02-18 12:19:00 [facility] Weight 2015-02-17 02:30:00 [facility] Height 2015-02-17 02:30:00 152.4 cm [facility] BMI Calculated 2015-02-17 02:30:00 [facility] Weight 2015-02-16 20:42:00 [facility] BMI Calculated 2015-02-16 20:42:00 [facility] Height 2015-02-16 20:42:00 152.4 cm [facility] Respitory Rate 2013-12-25 19:27:00 [facility] Heart Rate 2013-12-25 19:27:00 [facility] Diastolic (mm Hg) 2013-12-25 19:27:00 [facility] [place] Systolic (mm Hg) 2013-12-25 19:27:00 [facility] Temperature Oral (F) 2013-12-25 19:27:00 98.3 F [facility] BMI Calculated 2013-12-25 16:48:00 [facility] Weight 2013-12-25 16:48:00 [facility] Height 2013-12-25 16:48:00 152.4 cm [facility] Respitory Rate 2013-12-25 16:48:00 [facility] Heart Rate 2013-12-25 16:48:00 [facility] Diastolic (mm Hg) 2013-12-25 16:48:00 [facility] Systolic (mm Hg) 2013-12-25 16:48:00 [facility] Temperature Oral (F) 2013-12-25 16:48:00 98.8 F [facility] Heart Rate 2013-12-23 00:27:00 [facility] Systolic (mm Hg) 2013-12-23 00:27:00 [facility] Respitory Rate 2013-12-23 00:27:00 [facility] Temperature Oral (F) 2013-12-23 00:27:00 98.3 F [facility] Diastolic (mm Hg) 2013-12-23 00:27:00 [facility] Diastolic (mm Hg) 2013-12-22 23:06:00 [facility] Temperature Oral (F) 2013-12-22 23:06:00 98.4 F [facility] Systolic (mm Hg) 2013-12-22 23:06:00 [facility] Respitory Rate 2013-12-22 23:06:00 [facility] Heart Rate 2013-12-22 23:06:00 [facility] Weight 2013-12-22 20:46:00 [facility] Temperature Oral (F) 2013-12-22 20:46:00 98.7 F [facility] Systolic (mm Hg) 2013-12-22 20:46:00 [facility] Diastolic (mm Hg) 2013-12-22 20:46:00 [facility] Respitory Rate 2013-12-22 20:46:00 [facility] Heart Rate 2013-12-22 20:46:00 [facility] Diastolic (mm Hg) 2013-12-17 20:30:00 [facility] Respitory Rate 2013-12-17 20:30:00 [facility] [place] Systolic (mm Hg) 2013-12-17 20:30:00 [facility] [place] Systolic (mm Hg) 2013-12-17 19:06:00 [facility] [place] Diastolic (mm Hg) 2013-12-17 19:06:00 [facility] Respitory Rate 2013-12-17 19:06:00 [facility] [place] Systolic (mm Hg) 2013-12-17 18:54:00 [facility] [place] Diastolic (mm Hg) 2013-12-17 18:54:00 [facility] Temperature Oral (F) 2013-12-17 17:09:00 98.1 F [facility] Respitory Rate 2013-12-17 16:50:00 [facility] Temperature Oral (F) 2013-12-17 09:00:00 97.1 F [facility] Height 2013-12-17 02:58:00 152.4 cm [facility] Weight 2013-12-17 02:58:00 [facility] BMI Calculated 2013-12-17 02:58:00 [facility] Temperature Oral (F) 2013-12-17 02:55:00 98.1 F [facility] Height 2013-12-16 17:19:00 152.4 cm [facility] BMI Calculated 2013-12-16 17:19:00 [facility] Weight 2013-12-16 17:19:00 [facility] Heart Rate 2013-12-16 17:19:00 [facility] Temperature Oral (F) 2013-11-08 21:00:00 98 F [facility] Diastolic (mm Hg) 2013-11-08 21:00:00 [facility] Respitory Rate 2013-11-08 21:00:00 [facility] [place] Systolic (mm Hg) 2013-11-08 21:00:00 [facility] Temperature Oral (F) 2013-11-08 19:13:00 97.6 F [facility] Diastolic (mm Hg) 2013-11-08 19:13:00 [facility] Systolic (mm Hg) 2013-11-08 19:13:00 [facility] Respitory Rate 2013-11-08 19:13:00 [facility] Systolic (mm Hg) 2013-11-08 16:18:00 [facility] Respitory Rate 2013-11-08 16:18:00 [facility] Diastolic (mm Hg) 2013-11-08 16:18:00 [facility] Temperature Oral (F) 2013-11-08 11:34:00 99.0 F [facility] Heart Rate 2013-11-08 11:34:00 [facility] Heart Rate 2013-11-08 08:04:00 [facility] BMI Calculated 2013-11-08 04:51:00 [facility] Height 2013-11-08 04:51:00 152.4 cm [facility] Weight 2013-11-08 04:51:00 [facility] Heart Rate 2013-11-08 04:51:00 [facility] Procedures Procedure Date / Time Performing Clinician Source Performed Cardiac catheterization [facility] procedure Stent placement<sup>1</sup> Eleazar rial [facility] Plan of Care Planned Activity Planned Date Details Comments Source Future Scheduled Test 2020-05-29 IMM Influenza Seasonal [facility] 00:00:00 May to October (>/= 19 yrs) [code = IMM Influenza Seasonal May to October (>/= 19 yrs)] Future Scheduled Test 2015 IMM Pneumococcal Age 65 [facility] 00:00:00 and Up [code = IMM Pneumococcal Age 65 and Up] Future Scheduled Test 2000 Screening for malignant [facility] 00:00:00 neoplasm of colon (procedure) [code = [id number]] Future Scheduled Test 1990 Breast Cancer Scrn [facility] 00:00:00 (Yearly) [code = Breast Cancer Scrn (Yearly)] Encounters Start End Encounter Admission Attending Care Care Encounter Source Date/Time Date/Time Type Type Clinicians Facility Department ID 2020-01-21 2020-01-21 Outpatient E [facility] MED [id number] [facility] 05:31:00 05:31:00 2019-10-15 2019-10-15 Emergency E [facility] [id number] [facility]BL 13:12:00 13:12:00 2019-05-20 2019-05-20 Emergency [id number] [facility] 15:19:00 15:19:00 2019-02-25 2019-02-25 Emergency E [facility] [id number] [facility] 10:56:00 10:56:00 2018-08-21 2018-08-21 Emergency [facility] [id number] [place] 18:32:58 18:32:58 Health 2018-08-21 2018-08-21 Emergency [facility] [id number] [place] 17:47:59 17:47:59 Health 2018-08-21 2018-08-21 Emergency [facility] [id number] [place] 16:16:06 16:16:06 Health 2018-08-16 2018-08-16 Emergency [facility] [id number] [place] 22:04:00 22:04:00 Health 2018-08-16 2018-08-16 Emergency [facility] [id number] [place] 21:21:42 21:21:42 Health 2018-05-18 2018-05-18 Emergency [facility] [id number] [place] 14:51:52 14:51:52 Health 2018-03-08 2018-03-08 Emergency [facility] [id number] [place] 15:12:17 15:12:17 Health 2018-01-16 2018-01-16 Emergency [facility] [id number] [place] 17:53:03 17:53:03 Health 2018-01-16 2018-01-16 Emergency [facility] [id number] [place] 00:00:00 00:00:00 Health 2018-01-16 2018-01-16 Outpatient [facility] [id number] [place] 00:00:00 00:00:00 [facility] 2017-11-11 2017-11-11 Emergency E [facility] MED [id number] . 16:37:00 16:37:00 [facility] 2017-01-19 2017-01-19 Outpatient Patel, MHSE MHSE [id number] 12:18:00 18:37:00 Mac Bond 2017-01-16 2017-01-16 Outpatient Chayito, [facility] [id number] 18:22:00 21:34:00 Jl 33 Lida 2016-11-28 2016-11-28 Outpatient Ace, [facility]PL [id number] 19:17:00 23:13:00 Jason 32 Melody 2016-11-06 2016-11-06 Outpatient Nava, [facility] [id number] 17:34:00 21:03:00 Zaki 31 [place] 2016-10-10 2016-10-11 Outpatient Ahmed, [facility] [id number] 11:45:00 13:54:00 Jessika Jacek 30 2016-09-14 2016-09-15 Outpatient Weathers, [facility] [id number] 21:19:00 00:56:00 Nando Neville 29 2016-04-13 2016-04-14 Outpatient Frandy, [facility] [id number] 21:11:00 01:37:00 Jose 28 Thundiyil 2016-03-11 2016-03-12 Outpatient Ogunbiyi, [facility] [id number] 14:41:00 15:25:00 Khadijat 27 Arinola 2016-03-05 2016-03-05 Outpatient Fadowole, [facility] [id number] 16:54:00 21:21:00 Rachele 26 [place] 2016-02-29 2016-02-29 Outpatient Dianneo, [facility] [id number] 17:25:00 20:29:00 Good 25 2015-09-03 2015-09-05 Outpatient Mateus Dixon [facility] [id number] 21:30:00 10:26:00 B 24 2015-07-15 2015-07-16 Outpatient Anjel, [facility] [id number] 12:00:00 15:30:00 Janet 23 2015-07-04 2015-07-05 Outpatient Dick, [facility] [id number] 22:07:00 01:09:00 Habacuc 22 Breen 2015-07-04 2015-07-04 Outpatient Hemal, [facility] [id number] 11:57:00 14:54:00 Maribel Berkowitz 21 2015-06-03 2015-06-04 Outpatient Jeanie, [facility] [id number] 23:00:00 02:09:00 Luzmaria 20 Aliya 2015-05-18 2015-05-18 Outpatient Jennifer, [facility] [id number] 11:55:00 18:04:00 Indira S 19 2015-05-09 2015-05-09 Outpatient Jennifer, [facility] [id number] 12:15:00 15:10:00 Indira S 18 2015-05-02 2015-05-02 Outpatient Jennifer, [facility] [id number] 13:18:00 19:05:00 Indira S 17 2015-04-11 2015-04-11 Outpatient Yovani, [facility] [id number] 11:25:00 14:47:00 Gilmar Giordano 16 2015-03-30 2015-03-30 Outpatient Charito, [facility] [id number] 14:39:00 17:11:00 Isatu 15 Lucy 2015-03-21 2015-03-24 Outpatient Richmond, [facility] [id number] 13:24:00 17:30:00 Catarino 14 Blaine 2015-03-11 2015-03-11 Outpatient Dick, [facility] [id number] 14:43:00 17:41:00 Habacuc 13 Breen 2015-03-05 2015-03-05 Outpatient Tata RushingIE IE [id number] 00:43:00 05:21:00 Jasbir 12 2015-02-24 2015-02-25 Outpatient LEENA Dixon [facility]IE [id number] 10:34:00 20:14:00 Tucker 11 2015-02-16 2015-02-18 Outpatient Thu, [facility] [id number] 15:36:00 16:00:00 Kalpna 10 [place] 2013-12-25 2013-12-25 Outpatient Dorothea, [facility] [id number] 11:37:00 14:52:00 Rishabh Valdivia 2013-12-22 2013-12-22 Outpatient Nba, [facility] [id number] 15:43:00 19:29:00 Jann 08 Jl 2013-12-16 2013-12-17 Outpatient Beth, [facility] [id number] 12:18:00 17:45:00 Alvarez 07 2013-11-07 2013-11-08 Outpatient Jazmin, [facility] [id number] 23:50:00 18:00:00 Dustin Results Test Description [...] PM) URINE AND STOOL 2017-01-19 Negative (01/19/17 Ak morial 19:21:00 2:21 PM) [place] URINE AND STOOL 2017-01-19 Negative (01/19/17 Me morial 19:21:00 2:21 PM) Maciej URINE AND STOOL 2017-01-19 Negative (01/19/17 Me morial 19:21:00 2:21 PM) [facility]iej URINE AND STOOL 2017-01-19 1 [facility] 19:21:00 [place] URINE AND STOOL 2017-01-19 1 [facility] 19:21:00 [facility] URINE AND STOOL 2017-01-19 7.0 [facility] 19:21:00 [place] URINE AND STOOL 2017-01-19 1.008 [facility] 19:21:00 [place] URINE AND STOOL 2017-01-19 Clear (01/19/17 2:21 [facility] 19:21:00 PM) [facility] CARDIAC ENZYMES 2017-01-19 3.0 [facility] 18:07:00 [facility] CARDIAC ENZYMES 2017-01-19 <0.02 [facility] 18:07:00 [place] CHEM PANEL 2017-01-19 231 [facility] 18:07:00 [place] CHEM PANEL 2017-01-19 9 [facility] 18:07:00 [place] CHEM PANEL 2017-01-19 8.4 [facility] 18:07:00 [place] CHEM PANEL 2017-01-19 1.0 [facility] 18:07:00 [place] CHEM PANEL 2017-01-19 3.6 [facility] 18:07:00 [place] CHEM PANEL 2017-01-19 7 [facility] 18:07:00 [place] CHEM PANEL 2017-01-19 32 [facility] 18:07:00 [place] CHEM PANEL 2017-01-19 104 [facility] 18:07:00 [place] CHEM PANEL 2017-01-19 3.4 [facility] 18:07:00 [place] CHEM PANEL 2017-01-19 141 [facility] 18:07:00 [place] CHEM PANEL 2017-01-19 0.79 [facility] 18:07:00 [place] CHEM PANEL 2017-01-19 3.6 [facility] 18:07:00 [place] CHEM PANEL 2017-01-19 9.1 [facility] 18:07:00 [place] CHEM PANEL 2017-01-19 25 [facility] 18:07:00 [place] CHEM PANEL 2017-01-19 7.2 [facility] 18:07:00 [place] CHEM PANEL 2017-01-19 1.1 [facility] 18:07:00 [place] CHEM PANEL 2017-01-19 111 [facility] 18:07:00 [place] CHEM PANEL 2017-01-19 31 [facility] 18:07:00 [place] CHEM PANEL 2017-01-19 90 [facility] 18:07:00 [place] CHEM PANEL 2017-01-19 73 [facility] 18:07:00 [place] CHEM PANEL 2017-01-19 75 [facility] 18:07:00 [facility] HEMATOLOGY 2017-01-19 18:07:00 Test Item Value Reference Range Interpretation Comme nts PTT (test code = PTT) 31.3 s 22.9-35.8 [facility] OmquohbHBMUPKRBRK1012-29-34 18:07:008.5[facility]ann[facility]OLOGY 2017-01-19 18:07:0042.0[facility] PptoubhEBZNBTUXPN6363-57-88 18:07:004.92[facility] QyeyhgfJPNKASFZBL1604-78-18 18:07:0014.4[facility] IahhrprATDCUAUNER4187-23-73 18:07:0014.2[facility] YwuulxlDJTYOJIVUA0692-62-12 18:07:84049Ybdiugnh [facility] XKRWUXJZYV5133-26-85 18:07:0034.2[facility] IfqboeaFUJQRBNMSR8509-36-20 18:07:00 Test Item Value Reference Range Interpretation Comments MCH (test code = MCH) 29.2 pg 27.0-31.0 [facility] AmgmrbdJUMMUDFNQX3318-59-85 18:07:0085.5[facility]annHEMATOLOGY 2017-01-19 18:07:007.7[facility] HiwhzhxMMJSEKEGTS6177-59-77 18:07:00 Test Item Value Reference Range Interpretation Comments PT (test code = PT) 13.7 s 12.0-14.7 [facility] KlssbnkGAZNPMKQJJ3795-58-69 18:07:001.03[facility]annHEMATOLOGY 2017-01-19 18:07:000.3[facility] WqcbdlhHCTOLWPGHF1617-28-67 18:07:0068.3[facility] VavcxmxUTSSPFZRAO0319-79-92 18:07:000.emorial EovwnrhMEJWPFXJKE6282-70-28 18:07:005.3[facility] FoggojjIYXUDZAINA6605-18-44 18:07:004.5[facility] FZQWNBELJY3382-95-83 18:07:000.6[facility] ZgmxyzvVGOSNALXUQ3629-64-84 18:07:001.4 [facility] RwxsazbTOAYFXBLNA5244-41-00 18:07:007.8[facility]annHEMATOLOGY 2017-01-19 18:07:0018.8[facility]annDR[facility] HFJEMX5209-59-45 00:23:00Positive *ABN*(01/16/17 7:23 PM)[facility] CQWKBE3554-61-46 00:23:00Negative *NA*(01/16/17 7:23 PM)[facility] AANATL6914-90-03 00:23:00Negative *NA*(01/16/17 7:23 PM)[facility] YMFICB7208-07-90 00:23:00Negative *NA*(01/16/17 7:23 PM)[facility] AZEIMO8451-38-42 00:23:00See Note (01/16/17 7:23 PM)[facility] RGGLOB3980-08-52 00:23:00Negative *NA*(01/16/17 7:23 PM)[facility] DWWNSH4260-42-45 00:23:00Negative *NA*(01/16/17 7:23 PM)[facility] YMFZKR6149-31-73 00:23:00Negative *NA*(01/16/17 7:23 PM)[facility] JCSUN4238-70-87 00:23:00Negative *NA*(01/16/17 7:23 PM)[facility] ABVKY1120-60-17 00:23:00Negative *NA*(01/16/17 7:23 PM)[facility] BXKMC4297-08-48 00:23:00Negative (01/16/17 7:23 PM)[facility] NYLWR7024-20-45 00:23:00Negative (01/16/17 7:23 PM)[facility] ODXCU0148-90-14 00:23:00Negative (01/16/17 7:23 PM)[facility] CVOHY0511-29-27 00:23:001.0[facility] EUZNT3035-90-89 00:23:00Negative (01/16/17 7:23 PM)[facility] VTAOO7594-55-58 00:23:00Slight Cloudy (01/16/17 7:23 PM)[facility] RTEDB4494-87-83 00:23:00 Test Item Value Reference Range Interpretation Comments UA Spec Grav (test code = UA Spec 1.007 1 Grav) [facility] XVDWY8887-56-08 00:23:00 Test Item Value Reference Range Interpretation Comments UA pH (test code = UA pH) 6.0 1 5.0-8.0 [facility] BSKRK4211-38-15 00:23:00Negative (01/16/17 7:23 PM) [facility] WZOAV1348-58-97 00:23:00Yellow *NA*(01/16/17 7:23 PM) [facility]annCARDIAC OTPNZON7775-93-92 23:57:00<0.02[facility] CARDIAC NFVUSRX1200-73-25 23:57:002.0[facility]annCARDIAC MGMNRYA5186-57-47 23:57:53899Bhpawwfh HermannCARDIAC XWXPSDX7615-74-22 23:57:001.0[facility] CHEM EXGVC4270-13-18 23:57:0073[facility] HermannCHEM VRLLU0190-13-87 23:57:0029 [facility]annCHEM FPVWQ8500-91-52 23:57:71314Uodjbtlk HermannCHEM PANEL 2017-01-16 23:57:87309Aubfjayd HermannCHEM GVDPR2426-61-05 23:57:0015[facility] HermannCHEM ODVKU2304-53-73 23:57:0011.0[facility]annCHEM KJBVS5689-72-05 23:57:0016[facility]annCHEM NXAIV1718-72-18 23:57:009.4[facility]annCHEM HBZSG7807-78-89 23:57:000.94[facility]annCHEM FJBTX0554-64-15 23:57:73081 [facility]annCHEM WOVAK1175-22-09 23:57:004.0[facility] HermannCHEM PANEL 2017-01-16 23:57:003.6[facility]annCHEM OQGGN2482-43-24 23:57:0024[facility]annCHEM ICUJU0991-59-49 23:57:000.6[facility]annCHEM NACXQ7331-56-95 23:57:36088Jzbkvteq HermannCHEM PVXSM4347-54-07 23:57:0029[facility]annCHEM JYFOW2789-08-48 23:57:000.9[facility]annCHEM TIHFB8950-68-54 23:57:003.9 [facility]annCHE[facility] VBVPY4461-83-83 23:57:007.5[facility] HermannHEMATOLOGY 2017-01-16 23:57:0014.6[facility] HyjzhpvGWFADYDTZP6943-74-73 23:57:0042.7[facility] LkzjhkyABBHNAAIGR6982-43-62 23:57:0034.2[facility] RonzahyREXQHPKYZL6109-64-75 23:57:0085.3[facility] XyzqkluGIGNPDUGMN0065-11-84 23:57:00 Test Item Value Reference Range Interpretation Comments MCH (test code = MCH) 29.2 pg 27.0-31.0 [facility] RogixbsTZROIYYEBH6367-65-17 23:57:0014.3[facility] HermannHEMATOLOGY 2017-01-16 23:57:06914Tqdkmnwv TakswnbPCHXNBAIRG7637-88-71 23:57:008.0[facility] JupaklgMTIQMKNHJP1438-48-74 23:57:006.6[facility] IzybwwoVOXSJTNPHE5083-30-40 23:57:005.00[facility] ZobirvdSEDJVYMKBI8046-11-97 23:57:000.8[facility] OQYFAWHKKZ8801-13-38 23:57:004.0[facility] GyuahxzENLRIPHFBB9841-79-05 23:57:000.5 [facility] EpttpkeNJLTVERDAG1619-05-50 23:57:000.1[facility] HermannHEMATOLOGY 2017-01-16 23:57:001.8[facility] TscsofoCINKVPBXEG6572-30-98 23:57:000.2[facility] WayzkhlEXTPQXQHDW5673-91-51 23:57:0060.6[facility] PeewqrcYGDBRCGALJ6379-66-42 23:57:008.3[facility] ZbjjcwwJAZZQIZJWY1180-46-52 23:57:003.5[facility] SJEMFFUNIE5009-48-48 23:57:0026.8[facility]annUR[facility] AND WJUKW1563-20-44 02:18:00Negative *NA*(11/28/16 9:18 PM)[facility] YOEPO4394-97-28 02:18:00Negative (11/28/16 9:18 PM)[facility] QKKSM1072-51-09 02:18:001.0[facility] MKOAP1680-99-59 02:18:00Negative (11/28/16 9:18 PM)[facility] YOWNO0795-96-77 02:18:00Negative *NA*(11/28/16 9:18 PM)[facility] ZYPTC4935-47-09 02:18:00Moderate *ABN*(11/28/16 9:18 PM)[facility] ZLFJK8544-60-98 02:18:00Yellow *NA*(11/28/16 9:18 PM)[facility] TTOIY4427-63-15 02:18:00 Test Item Value Reference Range Interpretation Comments UA pH (test code = UA pH) 6.0 1 5.0-8.0 [facility] ZKBDV7849-05-43 02:18:00Negative (11/28/16 9:18 PM) [facility] ZVGYX8163-98-07 02:18:00Negative (11/28/16 9:18 PM) [facility] NURHB0379-46-58 02:18:00<=1.005 *NA*(11/28/16 9:18 PM)[facility] YESDP8208-79-63 02:18:00Clear (11/28/16 9:18 PM) [facility]annCARDIAC FZTGKHY2699-18-88 01:37:00<0.02[facility] CARDIAC AJEDPOO7545-64-14 01:37:001.3[facility]annCARDIAC IWGDMYL8517-43-78 01:37:0089[facility]annC[facility]AC QSXGXWP1487-55-31 01:37:001.5[facility] CHEM IMFIR4150-15-06 01:37:003.9[facility] HermannCHEM JIDOG9936-65-92 01:37:0050 [facility]annCHE[facility] GILBJ4967-38-65 01:37:000.9[facility] HermannCHEM PANEL 2016-11-29 01:37:0024[facility] HermannCHEM DMUFC4841-75-66 01:37:003.7[facility] HermannCHEM QRWFS7112-88-52 01:37:0089[facility]annCHEM THLFJ3955-94-44 01:37:25528Iubtlcth HermannCHEM POJIH0302-32-45 01:37:0010[facility]annCHEM XGYQM2830-06-42 01:37:001.28[facility]annCHEM XJXMQ3801-81-98 01:37:0030 [facility]annCHEM QOLGR6348-15-74 01:37:65847Cizfpujo HermannCHEM PANEL 2016-11-29 01:37:009.5[facility] HermannCHEM OPXLH4181-50-75 01:37:009.5[facility] HermannCHEM PSAWS5512-49-53 01:37:008[facility] HermannCHEM DBFGL7593-71-97 01:37:000.7[facility] HermannCHEM TTSUR9729-68-32 01:37:02926Fgwzptsp HermannCHEM JXPOK2653-22-56 01:37:003.5[facility] HermannCHEM IXMVY8433-51-31 01:37:007.6 [facility]annCHEM BIHWU4438-58-32 01:37:0014[facility]annHEMATOLOGY 2016-11-29 01:10:0033.4[facility] WxiizxzXSJNZZSFZP2494-44-01 01:10:56698Pbqumicg SyoexcjTOBWNEBCFS6116-13-86 01:10:0014.7[facility] ZccxanxTDARYSTFUQ0346-16-62 01:10:008.1[facility] QkcyhrmWUNGFEDHXI5826-50-76 01:10:005.34[facility] YECUYJPQMT6406-86-00 01:10:0015.5[facility] HgwlvghPVSJCQOHTH3188-44-48 01:10:00 87.0[facility] FqctzlvKCPFVNSYIM0534-01-79 01:10:0046.4[facility] HermannHEMATOLOGY 2016-11-29 01:10:00 Test Item Value Reference Range Interpretation Comments MCH (test code = MCH) 29.1 pg 27.0-31.0 [facility] FovwgjwGNASYLILSF8010-96-51 01:10:008.0[facility]annHEMATOLOGY 2016-11-29 01:10:000.1[facility] NzpatpoBZOUUXESYX3522-74-95 01:10:002.0[facility] CobpqkaFVKBEGJVOU2327-50-57 01:10:005.1[facility] IqmszzzSUODWCXBMN7374-66-36 01:10:000.2[facility] XaopwujOUTLBHXVWR0400-22-67 01:10:000.8[facility] DQKCZGEGKN5192-62-34 01:10:0063.2[facility] CupstfkSCVRYSWNXA1978-54-67 01:10:00 24.3[facility] KnowdrsNKPOCFRIDS1109-97-29 01:10:002.1[facility] HermannHEMATOLOGY 2016-11-29 01:10:009.6[facility] OmoogqzRGHVQTQJHZ6879-12-62 01:10:000.8[facility] HermannVIRAL - VNMDLMSI7150-78-93 01:10:00Negative (11/28/16 8:10 PM)[facility] HermannVIRAL - QIVILKMI6198-56-22 01:10:00Negative (11/28/16 8:10 PM)[facility]annCARDIAC CSJVIYZ3767-61-04 01:15:001.3[facility]annCARDIAC ENZYMES 2016-11-07 01:15:00<0.02[facility]annCARDIAC ENQNPXR3127-23-45 01:15:001.9 [facility]annCARDIAC DXSLDQD2521-88-48 01:15:30397Ebclhkhs HermannCHEM PANEL 2016-11-07 01:15:0077[facility] HermannCHEM CGKRU2118-45-81 01:15:0017[facility] HermannCHEM MYQGV8939-46-32 01:15:006.8[facility] HermannCHEM XNDDW3132-50-71 01:15:008.5[facility]annCHEM GTZAJ5694-33-04 01:15:000.8[facility] HermannCHEM NNFFI5423-92-82 01:15:85308Sbfvaoqe HermannCHEM DRAML7953-54-20 01:15:0031 [facility]annCHEM XAIGX9431-67-35 01:15:003.1[facility] HermannCHEM PANEL 2016-11-07 01:15:000.90[facility] HermannCHEM DCAUC6432-14-09 01:15:50627Emrsetqj HermannCHEM VTEYF5671-34-68 01:15:0012[facility] HermannCHEM QLBNW4824-03-10 01:15:0096[facility] HermannCHEM ZRZOO2545-23-86 01:15:003.3[facility] HermannCHEM RKSVZ5812-07-66 01:15:0076[facility] HermannCHEM LMQNC2871-61-02 01:15:0020 [facility]annCHEM VBAWR4385-68-65 01:15:003.5[facility] HermannCHEM PANEL 2016-11-07 01:15:000.9[facility] HermannCHEM JNQPV0594-99-89 01:15:0010.1[facility] HermannCHEM ZVGEY7231-67-42 01:15:0013[facility] YvveuchFXCQYEEIYL5029-60-52 01:15:002.8[facility] JvmrmosSXCDMYRGJR8127-28-37 01:15:000.2[facility] OUBDITWHUJ4236-70-52 01:15:000.1[facility] DygbrbaHZYYHYNKBQ8000-43-68 01:15:000.7 [facility] XololqrABIPIJGSPC8834-17-39 01:15:000.8[facility] HermannHEMATOLOGY 2016-11-07 01:15:004.5[facility] OfqusltNGQKOHWWHE6829-29-48 01:15:002.2[facility] YtefmdsIAXTNIFLBI6068-56-96 01:15:0058.5[facility] MdswwgiGZPPVUNTTA8818-28-06 01:15:0028.8[facility] ZxgtcbsSHCXZRUGRR2407-27-83 01:15:009.1[facility] VAOFKGNQIO0239-47-72 01:15:67584Rqsmihrh UcrmhpjOOAJCWOWVM9534-54-62 01:15:00 14.3[facility] SururazQCHAYZBYYT1305-82-92 01:15:008.1[facility] HermannHEMATOLOGY 2016-11-07 01:15:007.7[facility] HspgirbIYKCAMEAIZ6142-09-63 01:15:0013.1[facility] TrcwyojYGIUDVQTCY8581-43-98 01:15:004.48[facility] JyxtbdvNIAVPQXQYT9562-47-31 01:15:00 Test Item Value Reference Range Interpretation Comments MCH (test code = MCH) 29.3 pg 27.0-31.0 [facility] QcclbfoTZSGINTTYN3966-24-70 01:15:0039.1[facility] HermannHEMATOLOGY 2016-11-07 01:15:0087.3[facility] IjpicbhOACAHISTIL3059-66-94 01:15:0033.6[facility]annDRUG MOHQFT4311-01-72 11:24:00Negative *NA*(10/11/16 5:24 AM)[facility]annDR[facility] ZLPHVY2305-04-93 11:24:00Negative *NA*(10/11/16 5:24 AM)[facility]DR[facility] JZQPHX7860-98-58 11:24:00Negative *NA*(10/11/16 5:24 AM)[facility] HNDDPW9949-05-78 11:24:00Negative *NA*(10/11/16 5:24 AM)[facility]annDR[facility] CDFYBC6573-77-87 11:24:00Positive *ABN*(10/11/16 5:24 AM)[facility]DR[facility] VAQEPB4473-26-57 11:24:00See Note (10/11/16 5:24 AM)[facility] NXCVBJ4518-97-12 11:24:00Negative *NA*(10/11/16 5:24 AM)[facility]annDR[facility] LCQNND4755-93-94 11:24:00Negative *NA*(10/11/16 5:24 AM)[facility]annCARDIAC LBCDGQP9784-08-12 09:58:00<0.02[facility] FfxoroeLMXWIXVUMR1661-59-91 09:58:00 0.4[facility] OnjtgriIITDRLIPYZ7767-99-17 09:58:000.1[facility]annHEMATOLOGY 2016-10-11 09:58:006.3[facility] VzrbsqsQEBKFCLDEJ6754-41-90 09:58:001.0[facility] IckrmeaKFAELAMKVD1835-70-31 09:58:002.7[facility] PwurizqHDXDUZWBOJ8448-85-69 09:58:002.1[facility] BqtpbrcENIKAFFFZN1885-82-04 09:58:000.6[facility] VHUDKAORMF5996-04-61 09:58:0036.3[facility] GehecglCDLCPHCWLO2920-15-47 09:58:00 46.0[facility] YpkanhuRMVSCLGIBC7005-28-28 09:58:0010.4[facility] HermannHEMATOLOGY 2016-10-11 09:58:008.7[facility] GfyiyhnHJXICNOIHS8319-63-46 09:58:32129Sahftojy BzewbueSXZXHIFQPH4127-02-17 09:58:00 Test Item Value Reference Range Interpretation Comments MCH (test code = MCH) 29.3 pg 27.0-31.0 [facility] XaricgqYGKTDUTVTN5731-10-80 09:58:0087.2[facility] HermannHEMATOLOGY 2016-10-11 09:58:0014.4[facility] BzeskyvMUJETYISQR6986-00-06 09:58:0033.6[facility] KjszblyFTEZZRAIKX4836-12-54 09:58:0013.1[facility] OvruwquIXZRRKVHER7326-68-81 09:58:004.45[facility] AjehlmbDJLXCHPCYJ0039-34-67 09:58:0038.8[facility] JMPBONXZDK2583-31-29 09:58:005.8[facility] WmtgwojUKURTK8902-87-29 09:58:002.84 [facility] YsziufiHWIKMC3210-60-31 09:58:0014[facility] LgwrundSVCQAA8921-81-53 09:58:0087[facility] IgetihgWYAXAH2159-70-79 09:58:0071[facility] HermannLIPIDS 2016-10-11 09:58:34863Qtabbkrm EmxxynkZLZIGZ8005-83-99 09:58:0055[facility]annCARDIAC VEQQPTS1347-65-17 00:00:00<0.02[facility]annCARDIAC ENZYMES 2016-10-10 19:10:33<0.02[facility] HermannCHEM XLDJU3122-35-72 19:10:3392 [facility]annCHEM QCLBP0615-14-62 19:10:338[facility] HermannCHEM PANEL 2016-10-10 19:10:330.78[facility] HermannCHEM DNNTS5841-29-94 19:10:87757Docpzlio HermannCHEM YQCRB2155-47-17 19:10:333.2[facility]annCHEM ZAAEM1574-09-10 19:10:339.3[facility]annCHEM LYYMO6974-36-84 19:10:3331[facility]annCHEM ZQXZT2206-69-54 19:10:34083Qyksegxp HermannCHEM JTVFO2132-18-24 19:10:24441 [facility]annCHEM VESCJ7197-83-39 19:10:337.2[facility]annHEMATOLOGY 2016-10-10 19:10:3333.8[facility] GbvngioXSJDQRVSGF0464-59-72 19:10:3314.2[facility] ZxxfpkkBYMTPDOYTH1011-06-53 19:10:33 Test Item Value Reference Range Interpretation Comments MCH (test code = MCH) 29.4 pg 27.0-31.0 [facility] VvknzjyAXQEBBPRSD6946-42-31 19:10:3387.0[facility]annHEMATOLOGY 2016-10-10 19:10:3313.5[facility] MadyzcgJJFYECMFHF9734-73-56 19:10:3339.8[facility] MwiorhaFPGGMCKHEL7555-42-74 19:10:22625Puexkokz GgopjirBOPZVEEIQW0025-49-81 19:10:338.7[facility] YrtefuaVLITTGAUFV1543-70-71 19:10:336.6[facility] KSFQSTBKYJ9998-57-03 19:10:334.58[facility] AvxibavWOLLLYSALS3019-65-35 19:10:33 1.8[facility] XkicsumXCUXAKCRTJ1458-32-13 19:10:330.6[facility]annHEMATOLOGY 2016-10-10 19:10:330.3[facility] GckmeivGQKYMNVMZJ3911-67-64 19:10:330.6[facility] SouxlfsAMNGFHBWPD4515-81-49 19:10:333.9[facility] QwtbjnjKLATTPGDON3126-90-33 19:10:339.0[facility] RbolhxzIDMJPDYYJT6928-27-23 19:10:334.1[facility] KGWRAUUSMD8259-63-93 19:10:3359.5[facility] SlfwalvWUTKSTNIHC2929-80-99 19:10:33 26.8[facility] HermannCARDIAC IPAKEHU5566-34-37 04:07:00<0.02[facility] OYZAXGLXZYNY1232-55-59 04:07:0013.5[facility] VxyrbhrRUCZRUWQRUHI2310-07-87 04:07:0079[facility] LkebcygJCHRIGLMHIVR2648-90-26 04:07:000.89[facility] PKVHAIWUOGKU4483-36-25 04:07:009[facility] HcacgheLLVPIOLGXOXS0509-41-86 04:07:00 72[facility] IeuocetHFZEKHVXPZPA9804-35-88 04:07:69382Lfheykjo HermannELECTROLYTES 2016-04-14 04:07:0025[facility] NjpojmrGIIQTCVORWWM7035-12-01 04:07:008.9[facility] WnlnuniCOSHLQASXVIP5792-11-65 04:07:24051Tuidqejn GktqkoqPDWMKCDKDJXH7002-89-90 04:07:003.5[facility] IeyezbuZNXSJSZNGY9544-94-89 04:07:71912Ullhzppb [facility] HKPHMIAEWB2631-28-84 04:07:008.5[facility] BysbcekDILKXHIKVR1999-73-69 04:07:00 33.5[facility] YlcbclrWIYAVQCIHL9469-73-67 04:07:00 Test Item Value Reference Range Interpretation Comments MCH (test code = MCH) 28.7 pg 27.0-31.0 [facility] RiallbtLIRBDTRLUK7105-42-22 04:07:0015.0[facility] HermannHEMATOLOGY 2016-04-14 04:07:0038.3[facility] KblgogzCMIFYZHAPA8690-95-49 04:07:0085.6[facility] NsxezcnMECVXCADPE6609-19-35 04:07:0012.9[facility] OanxxouNEKMARROEM5222-31-98 04:07:004.48[facility] VvxtomsBVGPPEYCEA6828-00-76 04:07:005.6[facility] QTPQRBGCAY5124-52-35 04:07:000.1[facility] HxmaktbMNFOOPKGIZ5743-52-22 04:07:002.2 [facility] WvxiiorIRRGVBUATI2510-04-28 04:07:000.3[facility] HermannHEMATOLOGY 2016-04-14 04:07:000.5[facility] FzhaqafHQGKKWSOBL9855-21-67 04:07:006.1[facility] CpylihcFJEVRCKNWH7994-88-60 04:07:001.1[facility] UcwedxzTIOECDVYWR4461-38-48 04:07:002.5[facility] UzkwdbsMHOVZTHKKW4085-99-54 04:07:0038.8[facility] KFBHHBCPBS8553-81-94 04:07:009.2[facility] VvbvlcgJLSJNFATQR2723-11-02 04:07:00 44.8[facility] NtkavcpCCUPGDITYO2392-43-60 04:07:008[facility] HermannTOXICOLOGY 2016-04-14 04:07:000.008[facility] HermannCARDIAC UYECBYS5559-23-47 11:47:00 <0.02[facility] NezmjyrYLIPMU1152-98-17 11:47:003.39[facility] HermannLIPIDS 2016-03-12 11:47:0018[facility] SnqqakxOXZPDX9837-84-70 11:47:0073[facility] WEVCSW2589-79-98 11:47:0090[facility] ZbrxoklPFFQAZ3938-50-07 11:47:89959Kibftvwk UafnuawIABEZS3667-07-65 11:47:0038[facility]annSPECIAL USYQBAFPV0022-14-90 11:47:005.9[facility] HermannCARDIAC LIPJYXZ3254-21-73 02:33:0081[facility] CARDIAC BKTBPLD1548-59-72 02:33:000.02[facility] HermannCARDIAC MLSBWCN5286-93-71 02:33:001.6[facility] HermannCARDIAC AEFBNAE7266-77-52 02:33:001.3[facility] IGNGCQNVSY3992-02-92 21:03:00 Test Item Value Reference Range Interpretation Comments PROTIME (test code = PROTIME) 14.0 s 12.0-14.7 [facility] WrgbmjnYJHCOIXZBG5050-65-89 21:03:001.05[facility]annHEMATOLOGY 2016-03-11 21:03:00 Test Item Value Reference Range Interpretation Comments aPTT (test code = aPTT) 38.7 s 22.9-35.8 [facility] RzikthsVVFRWIIDZJ1460-11-34 21:03:000.49[facility] HermannCARDIAC ENZYMES 2016-03-11 20:14:001.6[facility]annCARDIAC ASASECY5968-50-85 20:14:001.3 [facility]annCARDIAC XSXINSF0294-25-16 20:14:00<0.02[facility] CARDIAC SHHEPNI8291-56-75 20:14:0083[facility]annCARDIAC NXICEGK8220-06-28 20:14:0050[facility] HermannCHEM QSURC3848-46-10 20:14:31792Pkpdbxsc HermannCHEM MJZMN4316-80-34 20:14:79416Oansnnnl HermannCHEM EEIIN4181-77-42 20:14:002.8 [facility] RXHYN2008-61-44 20:14:001.2[facility]annCHEM PANEL 2016-03-11 20:14:0015[facility]annCHEM LPKKB2945-04-63 20:14:0010.4[facility] HermannCHEM CTCFL1925-65-77 20:14:0014[facility]annCHEM JKYJT8067-94-32 20:14:006.1[facility]annCHEM CVGHL5523-16-04 20:14:000.5[facility] HermannCHEM VEMYU9718-78-73 20:14:007.7[facility] HermannCHEM FJTOJ9274-10-16 20:14:0026 [facility]annCHEM NDOML1245-14-50 20:14:82970Ydswwryr HermannCHEM PANEL 2016-03-11 20:14:003.4[facility] HermannCHEM HUTGD8606-32-12 20:14:57156Toezjpst HermannCHEM CLCLR8727-21-72 20:14:000.61[facility] HermannCHEM ZOADI6438-04-17 20:14:009[facility]annCHEM PQMCD1125-64-11 20:14:0076[facility]annCHEM GJBKL6694-94-79 20:14:0088[facility] HermannCHEM DDMCP0708-51-64 20:14:003.3 [facility]annCHEM SPNYG0998-44-79 20:14:0015[facility]annHEMATOLOGY 2016-03-11 20:14:001.8[facility] VhiqkeuXPOGRLCKRW8917-31-28 20:14:000.5[facility] JufmzfwRLIATKDLGX2408-74-50 20:14:001.0[facility] BmqdmltUQLAKGCZOA1088-94-32 20:14:004.1[facility] LyfdyrcRFVRDBLVXU4807-98-17 20:14:000.2[facility] GHLUWOXMMH9442-32-13 20:14:000.1[facility] XrlpfywATVPKEDYVL6042-27-41 20:14:00 61.4[facility] RrxlqxoYJDOFFNQCB2874-41-72 20:14:003.5[facility] HermannHEMATOLOGY 2016-03-11 20:14:0026.6[facility] RavxtpiLBENJBMOZW5957-05-19 20:14:007.5[facility] FbfcittUSNUMEIYZG8694-83-78 20:14:006.7[facility] RazcpkuBAWDXAGYMZ5943-26-28 20:14:0012.2[facility] XgwhaavFMWXSNNSRD7052-59-20 20:14:004.26[facility] IRBNFNMJLQ1262-61-62 20:14:00 Test Item Value Reference Range Interpretation Comments MCH (test code = MCH) 28.7 pg 27.0-31.0 [facility] PnnizycNMEKESGJTF9106-79-46 20:14:0086.0[facility] HermannHEMATOLOGY 2016-03-11 20:14:0014.9[facility] JgvmoyvINLQQYVGAZ9326-21-90 20:14:0033.3[facility] DxoezvxSESJYVJGFD4024-50-20 20:14:0036.6[facility] BekvvhfUDIZMRHXEO5446-70-67 20:14:008.7[facility] LjrdvhrKDGVSPILFK2956-82-80 20:14:81290Niycylfn HermannURINE AND KOSJC5595-94-58 20:14:00Negative (03/11/16 3:14 PM)[facility] IIMVB9702-83-90 20:14:00Negative (03/11/16 3:14 PM)[facility] UWQFA8156-44-91 20:14:00Negative (03/11/16 3:14 PM)[facility] CTYNN4166-17-30 20:14:000.2[facility] AND FWULL1405-98-12 20:14:00 Clear (03/11/16 3:14 PM)[facility] CGICR4234-26-11 20:14:00 Negative (03/11/16 3:14 PM)[facility] AAQCX3929-67-68 20:14:00 <=1.005 *NA*(03/11/16 3:14 PM)[facility] HDQVC5451-47-19 20:14:00 Test Item Value Reference Range Interpretation Comments UA pH (test code = UA pH) 6.5 1 5.0-8.0 [facility] HZKAA8557-43-18 20:14:00Negative *NA*(03/11/16 3:14 PM) [facility] AHRTX2479-89-47 20:14:00Negative *NA*(03/11/16 3:14 PM) [facility] RPGHX9334-91-57 20:14:00Negative (03/11/16 3:14 PM) [facility] UZUFX2980-34-05 20:14:00Yellow *NA*(03/11/16 3:14 PM) [facility] SBQKK7350-00-33 00:22:00Yellow *NA*(02/29/16 7:22 PM) [facility] KIGZU3137-98-42 00:22:00 Test Item Value Reference Range Interpretation Comments UA pH (test code = UA pH) 6.0 1 5.0-8.0 [facility] EGEOK2434-10-67 00:22:00Clear (02/29/16 7:22 PM)[facility] ECIRO1216-06-24 00:22:00 Test Item Value Reference Range Interpretation Comments UA Spec Grav (test code = UA Spec 1.015 1 Grav) [facility] KRSAH9585-50-63 00:22:00Trace *ABN*(02/29/16 7:22 PM) [facility] LKNLE7775-89-47 00:22:00None Seen (02/29/16 7:22 PM) [facility] BEDYD0242-94-25 00:22:00Negative (02/29/16 7:22 PM) [facility] CUGAQ4406-79-11 00:22:001.0[facility] NRCKQ8433-39-06 00:22:00Negative (02/29/16 7:22 PM)[facility] STOOL 2016-03-01 00:22:00Negative (02/29/16 7:22 PM)[facility] STOOL 2016-03-01 00:22:00Negative *NA*(02/29/16 7:22 PM)[facility] STOOL 2016-03-01 00:22:00Negative *NA*(02/29/16 7:22 PM)[facility] STOOL 2016-03-01 00:22:00Negative (02/29/16 7:22 PM)[facility] HermannCARDIAC ENZYMES 2016-02-29 23:14:00<0.02[facility] HermannCARDIAC KCKCDHF3421-71-13 23:14:001.1 [facility]annCARDIAC UBZETWF0481-15-55 23:14:69299Lryiqxmw HermannCARDIAC SZKWQKA3170-19-05 23:14:007[facility]annCARDIAC XNWOQNS1185-98-45 23:14:000.8 [facility] HermannCHEM RVVTM2296-29-07 23:14:0080[facility] HermannCHEM PANEL 2016-02-29 23:14:0013[facility] HermannCHEM KCRLM4844-13-99 23:14:001.0[facility] HermannCHEM WLQGD5976-37-01 23:14:003.6[facility] HermannCHEM SWBNJ6107-38-93 23:14:009[facility]annCHEM SGXKK8251-01-55 23:14:007.1[facility] HermannCHEM EMFEP9622-55-82 23:14:0010.0[facility] HermannCHEM MGKMK8228-69-57 23:14:70209 [facility]annCHEM WWMSC3074-92-83 23:14:003.0[facility] HermannCHEM PANEL 2016-02-29 23:14:000.88[facility] HermannCHEM OUGPI9921-71-19 23:14:0030[facility]annCHEM BOVJE5215-22-46 23:14:000.6[facility] HermannCHEM YZRJH9924-82-00 23:14:008.7[facility] HermannCHEM SWNPA9436-93-18 23:14:61797Vaspxlzz HermannCHEM SJVHS9842-85-49 23:14:0015[facility] HermannCHEM HQZAC7561-01-42 23:14:0088 [facility]annCHEM BVYEQ1457-49-80 23:14:003.5[facility] HermannCHEM PANEL 2016-02-29 23:14:008[facility] HermannCHEM TUKEX8849-60-09 23:14:0089[facility] CtufwooRQYUSQYRUT6464-75-67 23:14:00 Test Item Value Reference Range Interpretation Comments PROTIME (test code = PROTIME) 13.2 s 12.0-14.7 [facility] GbtkwtpOGEZXAIIBZ2933-16-18 23:14:000.97[facility] HermannHEMATOLOGY 2016-02-29 23:14:0015.3[facility] NfhygdePYGNWZYULR9671-40-92 23:14:0032.9[facility] XjcdtfkNVXZAUYGBM8193-38-83 23:14:0043.8[facility] KxmurlyVXSZHJTFXX8285-75-15 23:14:00 Test Item Value Reference Range Interpretation Comments MCH (test code = MCH) 28.1 pg 27.0-31.0 [facility] SrewcnnCZYPNMUCUH5601-92-95 23:14:0085.5[facility] HermannHEMATOLOGY 2016-02-29 23:14:005.3[facility] FnojptaGCFRVDXYJH9449-01-54 23:14:0014.4[facility] NyilbkvLTZBESIPWI7901-43-81 23:14:005.12[facility] EjjvatoVUEGEBUOCU0795-92-41 23:14:06593Zjqiylwr CalgaodVYHVTXMOVY6754-52-27 23:14:008.1[facility] BEGFYZDVKF6422-33-46 23:14:0057.2[facility] CyjuzmmLTSASBSQDC2720-05-81 23:14:00 11.7[facility] FjuirlpXCFSOWBNPJ1673-82-64 23:14:0024.1[facility] HermannHEMATOLOGY 2016-02-29 23:14:000.1[facility] KdmtbnvDTBHSMKMGW0799-68-02 23:14:000.6[facility] PoopuwmEIXTHNLIKD1560-05-41 23:14:001.3[facility] TtdodftMWJMWIYMEW2115-72-39 23:14:000.3[facility] LcmtwxwAQTEXXKVZF5738-96-39 23:14:003.0[facility] UVARUQGZUX0446-15-62 23:14:005.9[facility] XlsshnhTWUBZUCNNO9680-99-18 23:14:001.1 [facility] HermannCARDIAC QCBFEPX0207-86-42 17:04:000.7[facility]annCARDIAC FTNVZAW0849-23-43 17:04:000.7[facility]annCARDIAC NYGQJOQ7900-69-78 17:04:00 <0.02[facility]annCARDIAC BZTOFUN2645-48-31 17:04:0097[facility] JXVYJCWFFGRX9127-14-73 17:04:0018.3[facility] CvaemljGEEUOIUWYOEN3888-57-57 17:04:0078[facility] UiozuxcFIXTHLYGWKGZ8728-33-00 17:04:96112Urlvyirh [facility] QHGMZINQXBVH9546-63-68 17:04:0010[facility] KavmikxMTOHJXYPGGMI1880-48-16 17:04:00 0.90[facility] QvnqpcaBJFWHHRJDSPM4749-69-32 17:04:0020[facility] XMIFPGLZXPEI5541-53-10 17:04:009.4[facility] ScxozytQLYTJLKBFZSD4525-81-03 17:04:004.3[facility] GkdkqaeIVMXZBIIVYEY6868-40-69 17:04:31265Tidrkvlw [facility] YXUNPGHRTOPP8639-18-40 17:04:20827Nfqhzial OhdpmgyPZAROVWOTZ3865-27-78 17:04:00 9.6[facility] TopwgjaYQQPVPNILC8878-32-69 17:04:0041.4[facility] HermannHEMATOLOGY 2015-09-04 17:04:0013.1[facility] SzbrfjwEIRADCXSUR1614-24-20 17:04:004.74[facility] MamzyanGPXLOBONLF9185-32-91 17:04:0087.3[facility] JzodzssDOYEFRZARI6283-78-37 17:04:0031.5[facility] OvkliraQECUIWSDUX6914-99-99 17:04:00 Test Item Value Reference Range Interpretation Comments MCH (test code = MCH) 27.5 pg 27.0-31.0 [facility] XmtfxqsKLWGPJQZXP5647-64-79 17:04:008.7[facility] HermannHEMATOLOGY 2015-09-04 17:04:79557Guzwctvi SsizftjOXNNGDUERZ7691-65-86 17:04:0014.4[facility] AewrfujGMDGLFKWTP7265-56-53 17:04:000.1[facility] RkjrpdgLNVVPHPVVG3423-00-65 17:04:000.5[facility] VsqkmwqPZFZWRCSSZ9153-18-49 17:04:00Normal (09/04/15 11:04 AM) [facility] RpbzudyYIIDASGEPK8003-76-12 17:04:00Normal (09/04/15 11:04 AM)[facility] RmbctryRODTTTLMDL2068-54-13 17:04:0093.3[facility] WehhnkdJNOHDRSDND2085-35-97 17:04:000.2[facility] PcxwnktIWVDZZAJFI5670-50-61 17:04:005.4[facility] ACVNKMCTHC9064-86-69 17:04:001.1[facility] WegfqaxGURUXWKFGG4009-78-70 17:04:009.0 [facility] CegzyvuMTKJAN7675-44-01 17:04:0014[facility] BatwxiyRUMUJV3566-42-71 17:04:55788Oiaegqaf ZvmykbaWYNOPS4665-60-47 17:04:0054[facility] HermannLIPIDS 2015-09-04 17:04:0071[facility] SrwtoulUHQLIH4194-59-81 17:04:58675Yeyeedjq RoyuhnxYIQIFW9376-59-48 17:04:003.67[facility] HermannCARDIAC OQJGYJZ6178-07-02 10:50:000.6[facility]annCARDIAC GBVLPHG5217-13-83 10:50:000.6[facility] CARDIAC ZFKWQDU8503-83-34 10:50:00<0.02[facility] HermannCARDIAC ENZYMES 2015-09-04 10:50:43181Utuhaviu HermannCARDIAC IVFGGPC4072-65-23 04:33:14827 [facility]annCARDIAC CFWBBTZ2900-42-22 04:33:00<0.02[facility] CARDIAC BNNUISQ5725-34-20 04:33:000.8[facility] HermannCARDIAC QZSFPZM7819-99-92 04:33:000.7[facility] HermannCHEM XJYAE4208-47-06 04:33:0087[facility] HermannCHEM ATILO0372-14-05 04:33:008[facility] HermannCHEM PPVBO6466-05-89 04:33:000.82 [facility]annCHEM SBCAC4643-30-43 04:33:64616Iuijmmvk HermannCHEM PANEL 2015-09-04 04:33:59671Zoehpjpl HermannCHEM TPQYL3122-69-53 04:33:003.9[facility] HermannCHEM XYSPP6725-24-84 04:33:01516Mgcabkvb HermannCHEM DFFMS7771-16-66 04:33:0013.9[facility] HermannCHEM HJBOB6361-26-79 04:33:009.2[facility] HermannCHEM LPGEZ5697-88-08 04:33:0025[facility] FomufxsHEAVMJYJUL6295-68-69 04:33:007.4 [facility] HlzrhtzKXBZVMMLYX8183-87-03 04:33:0012.4[facility] HermannHEMATOLOGY 2015-09-04 04:33:004.57[facility] MjvrnsdCUPILCDDOT2743-85-44 04:33:0039.4[facility] FuvrubjLEDALJQZHB7441-18-87 04:33:0086.1[facility] QptamcoDRHCRQFZLO1410-73-14 04:33:0014.7[facility] HejanmyUKWOFGOWXN1231-04-77 04:33:0031.6[facility] TTRBNKYHVY0154-82-38 04:33:00 Test Item Value Reference Range Interpretation Comments MCH (test code = MCH) 27.2 pg 27.0-31.0 [facility] MwxmdesGXIWZNEMAL2099-68-61 04:33:008.3[facility] HermannHEMATOLOGY 2015-09-04 04:33:81956Mccvoetg HxlcowjWQCRHSOGBN5403-48-94 04:33:005.5[facility] VanxuiqITTOQFKZVA9010-32-68 04:33:006.5[facility] OzjgqtdZWMBEISDDN3638-89-38 04:33:0031.7[facility] XcxmbfuUFKCQLVLKF6356-60-79 04:33:0055.0[facility] LFTPNHBCJY2891-21-71 04:33:000.5[facility] VjyaimlBTGIHGSPJH5642-82-12 04:33:002.3 [facility] RxdiumpUHPCSRYBYX3094-86-52 04:33:004.0[facility] HermannHEMATOLOGY 2015-09-04 04:33:001.3[facility] SiepwbvANXYOLOXZF7589-46-92 04:33:000.1[facility] PudixziESRZBEPCYM9495-62-92 04:33:000.4[facility] HermannCARDIAC FEBKEGC6777-09-30 10:25:00<0.02[facility] HermannCARDIAC YZBHRCC1112-39-95 10:25:0075[facility]annCARDIAC KYPTMOD7044-01-35 10:25:000.9[facility] HermannCARDIAC ENZYMES 2015-07-16 10:25:001.2[facility] HermannCHEM EGBTG1983-56-12 10:25:26258Qavmvxsy HermannCHEM XZSTX3940-43-69 10:25:000.6[facility] HermannCHEM HZHNY2803-52-02 10:25:003.1[facility] HermannCHEM ZCDXG5834-06-83 10:25:009.0[facility] HermannCHEM VUTEP0365-38-88 10:25:006.3[facility] HermannCHEM IONKU2583-00-18 10:25:0014 [facility]annCHEM FRYTJ8201-56-30 10:25:0089[facility] HermannCHEM PANEL 2015-07-16 10:25:0019[facility] HermannCHEM SPPGE7304-87-41 10:25:0025[facility] HermannCHEM ZIICT4779-25-59 10:25:004.2[facility] HermannCHEM AYWIW2305-06-27 10:25:73773Cunqhlvn HermannCHEM BZSIO1441-23-51 10:25:0014[facility] HermannCHEM JCZZV8637-55-03 10:25:000.70[facility] HermannCHEM DAUHI5550-27-94 10:25:54167 [facility]annCHEM VTCGU7727-86-57 10:25:0078[facility] HermannCHEM PANEL 2015-07-16 10:25:0020[facility] HermannCHEM GKFSC5113-16-31 10:25:0010.2[facility] HermannCHEM VJXXO1288-99-53 10:25:001.0[facility] HermannCHEM CKDDT0772-85-03 10:25:003.2[facility] NamtukkSOIOLYQBRQ2537-82-76 10:25:008.6[facility] GDJFVESFIX3371-50-88 10:25:22074Zjowirgz DiodzfwQHRMZSEWXJ6627-52-78 10:25:00 14.3[facility] FbclukgRKWOCNGXMU0126-26-44 10:25:004.53[facility] HermannHEMATOLOGY 2015-07-16 10:25:005.5[facility] UiswiefAOKHZCCOHY5239-63-26 10:25:00 Test Item Value Reference Range Interpretation Comments MCH (test code = MCH) 27.9 pg 27.0-31.0 [facility] ZfgojxyXDOWWEZCZB6836-93-48 10:25:0031.5[facility] HermannHEMATOLOGY 2015-07-16 10:25:0088.6[facility] GthvkgkCYVSKZFMYQ3621-93-40 10:25:0040.2[facility] RdkjkxlQKDHRLTPTD9960-42-51 10:25:0012.6[facility] XbjzpofNTORPISBFF3579-35-70 10:25:000.2[facility] QigbvztHAXRWTUNMG9204-82-19 10:25:002.0[facility] XVUYIYNXFY8616-06-53 10:25:000.9[facility] BjivklhNEGAUTYKZK2318-15-84 10:25:000.6 [facility] RvhvzpxBULBWPYEWN1833-72-60 10:25:002.6[facility] HermannHEMATOLOGY 2015-07-16 10:25:0011.0[facility] AjpjtsoEXOPFOIQNS2956-16-18 10:25:004.0[facility] YsritsoUKMTYUTJKU0050-92-46 10:25:0036.1[facility] YjicnshTNYGJXMBGO8552-28-87 10:25:0048.0[facility] XmbraiqSIGURZLLZD7151-58-40 10:25:000.1[facility] CARDIAC WSWTZRW0228-16-09 04:22:00<0.02[facility] HermannCARDIAC ENZYMES 2015-07-16 04:22:0088[facility] HermannCARDIAC KALFKYZ1283-67-95 04:22:001.1 [facility]annCARDIAC JUPQKKW4050-60-19 04:22:001.0[facility] HermannCARDIAC KYSTRHP6019-95-80 21:33:00<0.02[facility] HermannCARDIAC TWCPVXQ6421-61-19 21:33:001.2[facility]annCARDIAC SCRMECO7938-97-20 21:33:37721Shexacsq [facility] CARDIAC LIIJINX3055-21-30 21:33:001.2[facility] HermannCHEM URZWA2613-19-02 21:33:0090[facility] HermannCHEM FULBK8053-92-28 21:33:0091[facility] HermannCHEM BNYOL3147-02-98 21:33:0019[facility] HermannCHEM OSOTF4724-04-38 21:33:0017 [facility]annCHEM EGDYC4060-49-68 21:33:0012[facility] HermannCHEM PANEL 2015-07-15 21:33:000.8[facility] HermannCHEM PBEMG3492-02-56 21:33:0011.1[facility] HermannCHEM ZCIYQ7726-82-56 21:33:003.5[facility] HermannCHEM HOTFS4452-34-07 21:33:0027[facility] HermannCHEM ZBUPM1284-75-81 21:33:006.8[facility] HermannCHEM DDYEQ8355-66-82 21:33:008.7[facility] HermannCHEM MVEVI6988-82-76 21:33:003.3 [facility]annCHEM TTESI3899-53-26 21:33:001.1[facility] HermannCHEM PANEL 2015-07-15 21:33:000.80[facility] HermannCHEM URDVE0030-54-27 21:33:37914Ecnwhgsn HermannCHEM GEVQU3846-38-52 21:33:22223Jmmimupa HermannCHEM LYRHX6267-31-04 21:33:004.1[facility] HermannCHEM FNVZO6367-04-62 21:33:0010[facility] HermannCHEM LKTHC9051-93-55 21:33:0072[facility] BxfdwegCVQWPSUTAT0791-49-36 21:33:003.3 [facility] KlkddlgKNASPJIJXU8271-62-53 21:33:000.2[facility] HermannHEMATOLOGY 2015-07-15 21:33:000.6[facility] AcowzgkDHAUQCIKGE3215-33-12 21:33:002.3[facility] IpkfspsACJSVCJEGL3278-45-25 21:33:0051.8[facility] GsrgngwAMIBLFPVKR2524-59-67 21:33:000.6[facility] CmfxbltWIOTPJYBPG2512-15-15 21:33:003.1[facility] UABUQQAJDM6892-62-38 21:33:009.4[facility] HfsbxcvOCVNXHKZFH4163-13-55 21:33:00 35.1[facility] WiizwypFPEJAHRRGQ1635-39-29 21:33:000.0[facility] HermannHEMATOLOGY 2015-07-15 21:33:009.1[facility] XyrxilrJQHPFVTJKY8940-87-69 21:33:0087.6[facility] LlgpldtFXVFKUDZEU8574-78-20 21:33:0012.9[facility] YmfieyzETIWBMCJKF3114-14-60 21:33:0039.8[facility] GmufltnYGKTMXGVXB7580-35-38 21:33:0032.3[facility] DVRVFFULDL6377-70-41 21:33:0014.8[facility] FwewwdfWKVWJCHDLT8692-27-29 21:33:00 Test Item Value Reference Range Interpretation Comments MCH (test code = MCH) 28.3 pg 27.0-31.0 [facility] KhcluwoGEXCELSPGF9520-50-96 21:33:78034Ookqoamv HermannHEMATOLOGY 2015-07-15 21:33:004.54[facility] ZhdvvixSHOUEVEJMY1176-84-65 21:33:006.4[facility] QwxzhwaBMLGZWRADE9722-04-26 19:18:00Negative (05/18/15 2:18 PM)[facility] CARDIAC EMIEVXK3808-01-90 18:26:00<0.02[facility] HermannCHEM ZXSHN2028-84-26 18:26:000.1[facility] HermannCHEM PYHAI0882-94-93 18:26:003.9[facility] HermannCHEM WIWAT7343-92-89 18:26:46602Uxmhvdaa HermannCHEM CCJXH3927-25-16 18:26:000.5 [facility]annCHEM KCZNG3447-08-46 18:26:0022[facility] HermannCHEM PANEL 2015-05-18 18:26:0018[facility] HermannCHEM XVDPQ0860-49-88 18:26:007.9[facility] HermannCHEM IWGUA3291-66-01 18:26:004.0[facility] HermannCHEM WLWRD7869-68-08 18:26:000.4[facility] HermannCHEM BBVAK8337-97-48 18:26:001.0[facility] HermannCHEM LZQZJ3165-46-29 18:26:74158Bmoanlht HermannCHEM OTQFR5053-04-64 18:26:0078 [facility]annCHEM PMALS2964-31-98 18:26:46529Zgdaswnj HermannCHEM PANEL 2015-05-18 18:26:003.9[facility] HermannCHEM SQNCR6329-65-19 18:26:000.9[facility] HermannCHEM VUUEB4239-62-08 18:26:0087[facility] HermannCHEM ZSAMN7005-04-90 18:26:007[facility] HermannCHEM BOOPF0087-53-70 18:26:33425Rhpvphnj HermannCHEM DLYNY1284-51-41 18:26:0028[facility] HermannCHEM SEDJY6041-33-92 18:26:0010.2 [facility] HermannCHEM AUMTE3159-43-07 18:26:0010.9[facility] HermannHEMATOLOGY 2015-05-18 18:26:0014.2[facility] JiojnzrRNDWBYHBMV2776-06-47 18:26:004.96[facility] FscbtouNVHYCKIMVV3264-40-06 18:26:00 Test Item Value Reference Range Interpretation Comments MCH (test code = MCH) 28.7 pg 27.0-31.0 [facility] EpnizeeRUDTVKKFDZ9379-25-36 18:26:0032.9[facility] HermannHEMATOLOGY 2015-05-18 18:26:0043.3[facility] FxvbdwfCKYEMRQCAY8650-18-69 18:26:0087.2[facility] YxdkpbgGHUKHSHSSP3635-18-48 18:26:006.8[facility] GmilzoeBDNYPFSAJJ6221-76-34 18:26:76795Jllimxlp SislhkyGKGADDFNBK0027-25-04 18:26:008.2[facility] KFEVYUHWGU4611-82-06 18:26:0014.5[facility] CmawaqwAQATETNHAC8475-39-82 18:26:00 55.6[facility] EvcdhopEMXASCICEJ7842-95-77 18:26:0032.7[facility] HermannHEMATOLOGY 2015-05-18 18:26:008.5[facility] IqzhtehVDVHWYHNXX2927-40-62 18:26:003.8[facility] EgyfpwzLUGHPGYMAI9012-80-93 18:26:000.6[facility] XskxdbgBGBSMTBSNZ0264-85-25 18:26:002.2[facility] GibuwowGJPZPNEZHI0021-89-55 18:26:002.6[facility] AHZMBNQQSU2263-21-75 18:26:000.2[facility] RocxabmGOEWZUODMU1862-29-82 18:26:000.6 [facility] MqfygbdCJBCMKNXGC0746-23-44 18:26:00Positive *NA*(05/18/15 1:26 PM) [facility] QdacidaYOCZCWSYYS6548-56-02 18:26:58408159Mxrxvdkw HermannIMMUNOLOGY 2015-05-18 18:26:005.5[facility] HermannCARDIAC YTBZOPR7158-27-27 18:51:00<0.02 [facility]annCHEM EQLFK5706-51-81 18:51:0090[facility] HermannCHEM PANEL 2015-05-09 18:51:0028[facility] HermannCHEM NTRQV3141-35-08 18:51:009.6[facility] HermannCHEM WITIG6935-01-74 18:51:99558Stewlpqk HermannCHEM ROGWP9249-68-37 18:51:000.8[facility] HermannCHEM HVRMI5693-80-47 18:51:70794Hpcipsfa HermannCHEM TDYQK4212-33-37 18:51:003.7[facility] HermannCHEM HZGJA3299-82-00 18:51:72505 [facility]annCHEM WYHWB1385-13-78 18:51:007[facility] HermannCHEM PANEL 2015-05-09 18:51:009.7[facility] KdteqhtBESJBPXOKY7445-24-05 18:51:0014.4[facility] YrgsrsdTFRMCJXZXT0513-29-21 18:51:0032.5[facility] OhpmreyEFDIANKQJH7856-98-51 18:51:00 Test Item Value Reference Range Interpretation Comments MCH (test code = MCH) 28.7 pg 27.0-31.0 [facility] LewawymBFPJHBYCUU0987-66-34 18:51:00618Flhezvvd HermannHEMATOLOGY 2015-05-09 18:51:007.6[facility] IpgprtgIOULCENVDW0778-73-72 18:51:0088.2[facility] VblpfktPOELDXTWGM6052-25-06 18:51:0041.9[facility] JjjbbvmRYLGRJBHNP3364-94-28 18:51:004.75[facility] SmhrmdrRULPGTQJMC9164-31-02 18:51:0013.6[facility] RXHLGQGYYG4500-70-32 18:51:005.6[facility] JtaxvbyFLWMTWDRPK5552-81-09 18:51:002.1 [facility] EasmbipBZHVCLUOJI3130-27-53 18:51:000.1[facility] HermannHEMATOLOGY 2015-05-09 18:51:000.2[facility] OxtuukqXPOZYOLAYK0459-97-46 18:51:000.4[facility] SmhaesfNVLTGIVPYF7530-45-28 18:51:0050.8[facility] WiwbbbeWHVXFRCBNR7387-87-18 18:51:002.8[facility] OhutnskRNWISZIXVN1948-35-14 18:51:002.9[facility] Maciej KREEXXOAVX8995-43-18 18:51:001.1[facility] OjqurfbMLJLNZVVWU2327-46-57 18:51:007.7 [facility] KiaypinXKFKTLBMQC8047-32-88 18:51:0037.6[facility] HermannCARDIAC ENZYMES 2015-05-02 22:03:00<0.02[facility] HermannCHEM YSYYD9622-56-08 22:03:003.2 [facility]annCHEM PSWRO5157-59-43 22:03:002.1[facility] HermannELECTROLYTES 2015-05-02 22:03:0012.4[facility] JvsuvwhVPZOBYZXQLKO5148-24-07 22:03:0068[facility] QsozeopEOJHSHPLJHZM3889-42-74 22:03:87750Hctusgaa ObczezoBDKBJJDAKBEU5943-72-61 22:03:38074Ffrczldk CfuqjdgIFRSZZSDBQQY9505-89-31 22:03:0028[facility] ADHPFGCQSFVJ4186-17-62 22:03:008.8[facility] IipbbkkJGOPXFQKMLOH0781-55-93 22:03:003.4[facility] LlyqodwUKCHIXVSXFTK5122-13-12 22:03:000.9[facility] YVHTWZORPIPL2305-50-78 22:03:0092[facility] RmadkitEYMTZEBNHMIP5367-68-40 22:03:00 6[facility] ChbokvvLFURBMINLI7823-09-97 22:03:008.0[facility] HermannHEMATOLOGY 2015-05-02 22:03:0014.1[facility] PligfrcFQQVPDLBTD8800-76-18 22:03:83072Hohcglaj SgplvmkHUBJKIDSBC1149-78-69 22:03:0032.6[facility] OndffqlPPDCGJSAGI1031-12-41 22:03:008.0[facility] RvrnmwpGYGZVHRZPP9920-49-93 22:03:0040.2[facility] NYBGWNATMI9419-63-49 22:03:0087.4[facility] KbugihiZAYSOHYSJV3335-58-77 22:03:00 13.1[facility] HloeadzYSKXDZSGWK9862-21-17 22:03:004.60[facility] HermannHEMATOLOGY 2015-05-02 22:03:00 Test Item Value Reference Range Interpretation Comments MCH (test code = MCH) 28.5 pg 27.0-31.0 [facility] CrofcoeKBTJFLPOTX8021-68-11 22:03:0026.3[facility] HermannHEMATOLOGY 2015-05-02 22:03:0060.9[facility] PywdrtdDVCXATRAJK7645-81-22 22:03:001.0[facility] ZyhrzftUDYOCKDESF3539-09-74 22:03:003.0[facility] YluhmzyVWRDNTNOQY0582-61-13 22:03:008.8[facility] UfnvsmdEQKXMJWFLE9972-29-49 22:03:000.7[facility] VPUBVMQQKG1510-49-75 22:03:000.2[facility] QorfjqrWDEXBVXBZW7204-57-42 22:03:002.1 [facility] EyvmlcaUHTKRAWGAY3594-99-89 22:03:004.9[facility] HermannHEMATOLOGY 2015-05-02 22:03:000.1[facility] HermannURINE AND LPPMR1439-04-02 21:38:00Negative (05/02/15 4:38 PM)[facility] HKSHZ0832-67-02 21:38:00Moderate *ABN*(05/02/15 4:38 PM)[facility] AND CJBTQ1995-92-98 21:38:00None Seen (05/02/15 4:38 PM)[facility] VJQFM0729-84-49 21:38:00None Seen (05/02/15 4:38 PM)[facility] CDFRS7368-42-35 21:38:00Negative (05/02/15 4:38 PM)[facility] JFNDA4355-78-57 21:38:00Negative *NA*(05/02/15 4:38 PM)[facility] VBCWQ4910-23-79 21:38:000.2 [facility] AND VKKWI5934-90-09 21:38:00Negative (05/02/15 4:38 PM) [facility] DMHHE7699-34-34 21:38:00Negative *NA*(05/02/15 4:38 PM) [facility] OLSEY2972-16-16 21:38:00Yellow *NA*(05/02/15 4:38 PM) [facility] WBOED5701-24-64 21:38:00 Test Item Value Reference Range Interpretation Comments UA pH (test code = UA pH) 6.0 1 5.0-8.0 [facility] JXOBZ6611-36-26 21:38:00Slight Cloudy (05/02/15 4:38 PM) [facility] RNGVP3954-41-03 21:38:00Negative (05/02/15 4:38 PM) [facility] DWWDO6617-83-18 21:38:00 Test Item Value Reference Range Interpretation Comments UA Spec Grav (test code = UA Spec 1.006 1 Grav) [facility]annCHEM DLCLN2686-50-94 09:28:15526Pvhsmone HermannCHEM PANEL 2015-03-24 09:28:02649Zqxxqixz HermannCHEM SWBQK7273-84-84 09:28:000.7[facility] HermannCHEM JXRVK3625-29-28 09:28:004[facility] HermannCHEM JIDOT0070-57-95 09:28:003.2[facility] HermannCHEM NDDCN8710-14-53 09:28:50249Yetnofax HermannCHEM ULWED0661-34-28 09:28:0091[facility] HermannCHEM GWPBD6531-23-74 09:28:003.5 [facility]annCHEM NJCYN8138-84-77 09:28:006.6[facility] HermannCHEM PANEL 2015-03-24 09:28:87304Tjhvsbai HermannCHEM JHHZV7319-71-95 09:28:009.1[facility] HermannCHEM XBNHT7545-16-39 09:28:0027[facility] HermannCHEM FHQQC7798-33-78 09:28:0011.2[facility] HermannCHEM BQVTY8992-44-97 09:28:0021[facility] HermannCHEM JRFBA1969-65-31 09:28:0034[facility] HermannCHEM ZAVHI2651-19-58 09:28:000.6 [facility] HermannCHEM WWSZO8267-23-27 09:28:0095[facility] HermannCHEM PANEL 2015-03-24 09:28:006[facility] HermannCHEM RNDPV3008-84-49 09:28:001.1[facility] HermannCHEM OHMGL6149-32-59 09:28:003.1[facility] ArqltwnNYSACIXGTM3180-08-46 09:28:0011.3[facility] AvlkeskBETBQQUXAK4141-35-34 09:28:0027.1[facility] LNYUYSSGKZ5355-88-37 09:28:005.9[facility] AqelqfnREKAAALKWF9775-61-15 09:28:003.3 [facility] EjavxwgVCAXAVRRXI2993-68-45 09:28:000.7[facility] HermannHEMATOLOGY 2015-03-24 09:28:0055.0[facility] ZuplyuhPMTCUCYNSC9368-75-51 09:28:000.7[facility] FetyjhbOEDTNEMGDF2824-02-41 09:28:001.6[facility] JiekwymFBZTTBAFAC6290-98-05 09:28:000.4[facility] JdgqljpXQROSYDSMG6552-50-68 09:28:004.21[facility] GEISBQSFAA5739-49-67 09:28:005.9[facility] QskxiecDNFUEAWJTY9976-64-17 09:28:97400 [facility] BygenqdEERGTSGWEH7687-81-84 09:28:0032.4[facility] HermannHEMATOLOGY 2015-03-24 09:28:0014.2[facility] HhswcozCTHURRCREZ3633-91-27 09:28:008.6[facility] GfgrqspHNLNJVJBXR9192-95-15 09:28:0037.2[facility] HkihlgrJCGZPDUSCH0512-92-37 09:28:0088.3[facility] LehrovxGKAPNVMLWB0365-23-83 09:28:0012.1[facility] XMQXSAIRNR7241-50-30 09:28:00 Test Item Value Reference Range Interpretation Comments MCH (test code = MCH) 28.6 pg 27.0-31.0 [facility] MJGZY2346-22-11 18:14:00Negative (03/23/15 1:14 PM) [facility] NQLXRGD7284-58-06 10:51:000.8[facility] QZPVBQK9398-50-65 10:51:0070[facility] XXRVOPC4218-77-78 10:51:00 1.1[facility]annCHEM WLMMA9180-64-25 10:51:06567Nssezlvf HermannCHEM PANEL 2015-03-23 10:51:0027[facility]annCHE[facility] BLGOB5000-96-77 10:51:009.2[facility]annCHEM HANAC3967-25-54 10:51:05779Zlsdbado HermannCHEM NITIW2910-96-86 10:51:86076Bbcwynxf [facility]annCHEM YUTDM8950-63-48 10:51:003.5[facility]annCHEM SUUMW2786-34-67 10:51:000.7[facility]annCHEM BDTQP2488-07-83 10:51:008 [facility]annCHE[facility] OVUQT9769-37-15 10:51:18516Jdcbkasx HermannCHEM PANEL 2015-03-23 10:51:0010.5[facility] OdkpfoaBONSXJQXWL6013-04-72 10:51:001.3[facility] MdxmmmhYCVAENYMVY3435-81-88 10:51:003.4[facility] LttsiwyTVLQFFWCRS5215-09-00 10:51:000.6[facility] PmquovqPKHYLCZWFG5592-57-37 10:51:004.0[facility] LHVWBDLPOD3428-04-18 10:51:000.2[facility] UzykwutQBIVGLCJIP9592-60-00 10:51:000.6 [facility] ItdnqekIKWHWABZNX9754-29-52 10:51:0011.0[facility]annHEMATOLOGY 2015-03-23 10:51:0023.6[facility] CcuqeqpUMNFYBOBPS6055-75-55 10:51:0060.8[facility] EmkokzuQVEJXPBGQA4699-26-08 10:51:008.3[facility] MplksihGTTJDLHVJG8134-42-94 10:51:80606Kxcukuue KayyqxdSSJHRHGELO3943-77-79 10:51:0014.6[facility] ZNKMSWAUSP6277-01-34 10:51:0088.0[facility] ObirdryWYZWYEZHKL7957-20-27 10:51:00 Test Item Value Reference Range Interpretation Comments MCH (test code = MCH) 28.7 pg 27.0-31.0 [facility] YdqpvcuXNWYAAPTJC4084-70-99 10:51:0034.7[facility]annHEMATOLOGY 2015-03-23 10:51:0032.6[facility] WqyslnuSWNBWRCEFY7569-11-35 10:51:0011.3[facility] YntalyjSUZPBULNGQ9071-78-09 10:51:003.94[facility] HoausljWTSFZIKXYI4385-54-63 10:51:005.6[facility]annCARDIAC UJPUBJQ3720-61-69 10:19:001.6[facility] CARDIAC WGRDKPE9257-80-70 10:19:001.0[facility]annCARDIAC UFYQCRN1335-82-80 10:19:0064[facility]annCHEM NOOEN1787-32-11 10:19:48857Cyjgunuc HermannCHEM LZOTT2010-85-39 10:19:008.7[facility]annCHEM RQIWS0555-84-23 10:19:99294 [facility]annCHE[facility] NVHWE3604-05-84 10:19:003.9[facility]annCHEM PANEL 2015-03-22 10:19:76824Pdbbbqry HermannCHEM ZCODJ3584-99-34 10:19:0027[facility]annCHEM ZKDQC9883-69-38 10:19:0094[facility]annCHEM UPRSC9235-25-11 10:19:008[facility]annCHEM NQGES1709-00-43 10:19:000.6[facility]annCHEM MLHGR8095-57-09 10:19:008.9[facility] FcnrixjSAJONFFQEP9990-80-82 10:19:000.2 [facility] RmfyssrWHCZYYQNQK3061-87-85 10:19:000.5[facility]annHEMATOLOGY 2015-03-22 10:19:000.9[facility] MbsmhniTHULGNRHPS1768-11-95 10:19:0011.2[facility] ZehbzszWUETQJIBGP0176-03-98 10:19:002.1[facility] RhnlnegMYYUMBASQO8258-47-78 10:19:003.7[facility] NvkwhwmTGABWHBVYY2048-81-28 10:19:001.6[facility] PGTWAGFUDI3698-59-03 10:19:0048.6[facility] NjvuqgaUMECEEQHMO7693-43-07 10:19:00 35.emorial QvzmxbaQGFWRTIOCJ6576-00-37 10:19:008.9[facility]annHEMATOLOGY 2015-03-22 10:19:004.4[facility] TrzjcecHAVIVLSPEV7206-03-40 10:19:00 Test Item Value Reference Range Interpretation Comments MCH (test code = MCH) 29.9 pg 27.0-31.0 [facility] OedunfmYXUMAOJCGV2993-50-71 10:19:0086.5[facility]annHEMATOLOGY 2015-03-22 10:19:0034.6[facility] UwbygroZVJIJDLMAX2016-97-55 10:19:0011.7[facility] NnysmmaKBMHDQAYYC3335-33-39 10:19:003.92[facility] CbayjbsHEWQILWLKJ1009-75-13 10:19:0033.9[facility] SadnimcQTZDGIAPNS8685-90-42 10:19:0014.6[facility] JUBFACNNAT8827-45-49 10:19:35997Ijmmjqmb HermannCARDIAC RGGNTIU2105-80-91 03:22:001.6[facility]annCARDIAC VOWUDQD7048-94-28 03:22:0077[facility] CARDIAC ZCQIMHM0089-06-04 03:22:001.2[facility]annCHEM MQNAY1762-98-20 02:44:001.4[facility]annCARDIAC XOEAJHD5417-63-35 21:13:00<0.02[facility]annCHEM HHXHW0727-50-68 21:13:003.3[facility]annCHEM CXWHS2971-44-69 21:13:001.1[facility]annCHEM KFKGR2764-01-85 21:13:0016[facility]annCHEM SLYJY7696-32-95 21:13:58860Kzqeloyj HermannCHEM NTOHW8548-70-79 21:13:0025 [facility]annCHE[facility] CNDJR6229-77-90 21:13:000.5[facility]annCHEM PANEL 2015-03-21 21:13:0032[facility]annCHEM COLHA0265-89-73 21:13:003.7[facility]annCHEM GUTDD5491-65-45 21:13:007.0[facility] NhlffovEZBDRMGVDL2285-67-35 21:13:000.0[facility] LdptzowUHQJAKDXVH5457-21-97 21:13:001.04[facility] LTQXGYQWIO4693-59-63 21:13:00 Test Item Value Reference Range Interpretation Comments PT (test code = PT) 13.6 s 12.0-14.7 [facility] IbehjvfRSOJECAMVM0263-85-46 21:13:00 Test Item Value Reference Range Interpretation Comments PTT (test code = PTT) 35.2 s 22.9-35.8 [facility] LIIFJVM0325-87-28 21:10:006[facility]annCARDIAC KZILTPY3524-91-80 21:02:00<0.02[facility]annCARDIAC NSUYEUZ2297-57-12 21:02:0031[facility]annCARDIAC NMYNYND4222-50-94 21:02:000.8[facility] CARDIAC VATMOQM9649-04-93 21:02:0070[facility]annCARDIAC VOCRTKL7471-41-67 21:02:001.1[facility]annCHEM LWEQH8045-90-04 21:02:55338Azkmfhjz HermannCHEM DYMCT8183-66-84 21:02:0099[facility]annCHEM IAMSS1859-93-30 21:02:000.6 [facility]annCHEM WUBMD5492-17-83 21:02:0011[facility]annCHEM PANEL 2015-03-11 21:02:009.4[facility]annCHEM WUIZK8064-99-66 21:02:003.1[facility]annCHEM WVVOB9797-21-00 21:02:001.1[facility]annCHEM YGDFZ7915-54-81 21:02:0073[facility]annCHEM VRYPN8399-58-06 21:02:008[facility]annCHEM CNNYS3982-40-66 21:02:000.7[facility]annCHEM PVAFW6086-16-67 21:02:93971 [facility]annCHEM PHBUO7192-24-36 21:02:003.4[facility]annCHEM PANEL 2015-03-11 21:02:0028[facility]annCHEM VCEYZ0118-00-76 21:02:47010Rnwrfieb HermannCHEM QNSBK8909-64-76 21:02:008.9[facility]annCHEM TQYHY3604-16-04 21:02:006.5[facility]annCHEM BZVBC0311-78-71 21:02:003.4[facility]annCHEM EMDKI9261-16-84 21:02:0030[facility]annCHEM NRVMZ2620-31-87 21:02:0021 [facility] GmlzlsqVQRNXZQGDB5103-02-86 21:02:0015.1[facility]annHEMATOLOGY 2015-03-11 21:02:0033.1[facility] OrqtlreTRKHANIVHY9414-90-88 21:02:91801Mbizgpof OlxznqoNQVIQDIJTJ4307-52-13 21:02:008.1[facility] IehubqyWEYPUPDLJU2972-93-16 21:02:0034.6[facility] FzesmkfMMASYQOHQL1209-65-77 21:02:0011.5[facility] WYDZJUDUXG4604-08-71 21:02:00 Test Item Value Reference Range Interpretation Comments MCH (test code = MCH) 28.8 pg 27.0-31.0 [facility] JvrodeuJNCCRPYIGM5222-37-26 21:02:0086.9[facility]annHEMATOLOGY 2015-03-11 21:02:003.98[facility] DwxqfzsNOCEXXWDPG0712-76-30 21:02:006.5[facility] XuivrieJDDVTXRLGH9161-38-42 21:02:00 Test Item Value Reference Range Interpretation Comments PTT (test code = PTT) 32.8 s 22.9-35.8 [facility] TlqvmcbRMXAWFMPGL2476-79-24 21:02:00 Test Item Value Reference Range Interpretation Comments PT (test code = PT) 13.3 s 12.0-14.7 [facility] OtiavenHLYLAIHANT7605-27-47 21:02:001.01[facility]annHEMATOLOGY 2015-03-11 21:02:000.0[facility] MgmzzbqSGWLULFTLP7902-61-81 21:02:003.7[facility] TybnxfrWEUUIGFTXO0409-45-48 21:02:000.2[facility] YlacjpuTJKSLZZLRZ2091-20-20 21:02:000.6[facility] BqsjyxzDNILKUPAGQ7105-08-47 21:02:001.9[facility] SEHEIKCBJG0786-68-05 21:02:0056.9[facility] KclfotsSGSPFUXSQM2392-85-54 21:02:00 2.7[facility] DvwoetvCCQOLLOCUA4386-14-67 21:02:000.4[facility] HermannHEMATOLOGY 2015-03-11 21:02:009.9[facility] GnynniuUWIRFFBYXO6992-77-31 21:02:0030.1[facility]annCARDIAC SBNPZBU0252-11-93 09:33:00<0.02[facility]annCARDIAC ENZYMES 2015-03-05 06:16:00<0.02[facility]annCHEM KVXQP6012-60-53 06:16:001.1 [facility]annCHEM MJFAC3961-48-81 06:16:003.5[facility]annCHEM PANEL 2015-03-05 06:16:000.5[facility]annCHEM AIGFA5197-73-06 06:16:000.1[facility]annCHEM WSTZB6399-86-17 06:16:0025[facility]annCHEM WKVLV9446-59-92 06:16:0021[facility]annCHEM PENQG1390-37-98 06:16:003.7[facility]annCHEM LPPTS5302-04-30 06:16:31918Pgxkxzdf HermannCHEM KLFTX7155-26-74 06:16:000.6 [facility]annCHEM UEOAN5196-42-53 06:16:007.2[facility]annCHEM PANEL 2015-03-05 06:16:41060Ijspfyft DoulymmCNHYDMQCVZWQ4662-37-16 06:16:0012.6 [facility] BbovnqyDGJEMXDLTVNN4551-05-71 06:16:0078[facility] HermannELECTROLYTES 2015-03-05 06:16:009.6[facility] TzurklbZSNYFSQJNPKX3101-71-27 06:16:0029[facility] NwwvjheXIADXEZKGBTO2560-01-58 06:16:003.6[facility] RcyghbcUGSTRPTVOZBF7083-81-15 06:16:42510Vllrbrcp TcrksxjJUIORBTQEWVO4687-20-22 06:16:80764Vohnldqg [facility] BCDTCVMCZQSP0619-57-44 06:16:000.8[facility] ZwizwxtTRAUWLZJGKJE3472-95-09 06:16:009[facility] FjiepzaSIHLDVXLVOTQ7811-09-06 06:16:0096[facility] AWQSXGLJOB8986-81-19 06:16:002.6[facility] DxtbpjsINTJMCTHJI7537-50-55 06:16:000.9 [facility] DkvglojYHWPYEGOIV1979-23-90 06:16:000.7[facility] HermannHEMATOLOGY 2015-03-05 06:16:001.7[facility] SganewpTUVIEOORTG3357-98-37 06:16:006.7[facility] AauqifeTLZEPQPKRB9498-01-60 06:16:0025.0[facility] SaijmrjMJYOMRWJQB5581-38-46 06:16:0064.3[facility] HzpgnkjYTDWQDBBMU4252-50-99 06:16:008.3[facility] FQVPIKADAY0650-96-45 06:16:000.2[facility] NlusyjtKXHAZLKULR1770-92-70 06:16:000.1 [facility] BehojfoCPUZMLHBXQ6083-21-94 06:16:0087.7[facility] HermannHEMATOLOGY 2015-03-05 06:16:0039.7[facility] MfmqjfwLKXVHJLKNP2064-31-17 06:16:008.0[facility] PumgrrxYWDTIUWPGF5366-57-34 06:16:57565Tojtszou QxmttwjIAMZBCPTDT1377-81-26 06:16:0014.6[facility] RwursenYCNENAEDCB7732-72-49 06:16:0032.4[facility] QWSMACBGWZ7645-01-88 06:16:00 Test Item Value Reference Range Interpretation Comments MCH (test code = MCH) 28.4 pg 27.0-31.0 [facility] RmbqjtzFWYQBYJHDO6796-66-55 06:16:0010.5[facility]annHEMATOLOGY 2015-03-05 06:16:004.53[facility] ZsfkcefNOYIBMQREN0060-24-59 06:16:0012.9[facility]annCHEM TLPXJ5082-70-66 09:16:002.0[facility]annCHEM NVWNR6570-55-44 09:16:003.6[facility]annCHEM WNHVE5292-70-28 09:16:04670Flskcpov HermannCHEM DFPRZ1640-72-49 09:16:0017[facility]annCHEM YFAVW0463-30-28 09:16:003.3 [facility]annCHEM PMXAH6101-16-16 09:16:001.1[facility]annCHEM PANEL 2015-02-25 09:16:006.3[facility]annCHEM JAOYR6217-21-08 09:16:0021[facility]annCHEM FNXTO0631-31-87 09:16:003.0[facility]annCHEM FELIL6754-33-29 09:16:000.5[facility]annCHEM FAIOG9619-10-54 09:16:95463Gonthneg HermannCHEM AOSAA8466-87-32 09:16:0011[facility]annCHEM BOITX6121-45-72 09:16:009.1 [facility]annCHEM VKIIA2183-95-01 09:16:0099[facility]annCHEM PANEL 2015-02-25 09:16:008[facility]annCHEM CMQRM8755-72-02 09:16:46860Sjztblsz HermannCHEM KCOWR1012-42-40 09:16:000.7[facility]annCHEM RLVAO2206-15-04 09:16:008.9[facility]annCHEM RYDYY4232-68-44 09:16:68536Jxteoanv HermannCHEM LZSNV8700-56-12 09:16:0028[facility]annCHEM LHGBG6768-22-62 09:16:003.9 [facility] KiqmisfBILPYKUHVX2073-17-61 09:16:22946Ryqnffwd HermannHEMATOLOGY 2015-02-25 09:16:008.8[facility] IusuxvjANIHVMOMKZ4358-16-74 09:16:0014.9[facility] UlwxipiWVQNOSNUTV4054-89-88 09:16:005.9[facility] YqxobcuCOHNGXVKGF5058-16-06 09:16:0088.4[facility] DtevvwmDNWUEFMDVS8739-94-42 09:16:0037.2[facility] XJYYAUAEPM5142-33-56 09:16:00 Test Item Value Reference Range Interpretation Comments MCH (test code = MCH) 28.6 pg 27.0-31.0 [facility] NbdtvxjIOPGAVSOHG4275-35-84 09:16:0032.4[facility]annHEMATOLOGY 2015-02-25 09:16:004.21[facility] RvgdmtsLZOABWRXOU7655-70-40 09:16:0012.0[facility] JpsbstxBWFVXEXUNH0269-00-42 09:16:0031.9[facility] NhtaimpSXGJGTJTWJ3199-73-06 09:16:000.8[facility] BmyjvqkONLGTZAHJR6055-26-25 09:16:003.1[facility] WFTUWYJLUM1095-44-46 09:16:0011.6[facility] UcuenbaIZCDTRIUSN2482-14-33 09:16:00 2.9[facility] DuqamqfHDGSBHUSJY5759-54-14 09:16:0052.8[facility]annHEMATOLOGY 2015-02-25 09:16:000.7[facility] WtragmtAGWRZXXDMR1893-32-96 09:16:001.9[facility] KkiqjxlWNJIDAVGQK6422-93-12 09:16:000.2[facility]annCARDIAC OLAGXBV5333-92-95 04:30:0074[facility]annCARDIAC JCEWJEN5601-09-36 04:30:001.2[facility] CARDIAC NILLCZK4186-53-93 04:30:00<0.02[facility]annCARDIAC ENZYMES 2015-02-25 04:30:000.9[facility]annCARDIAC RWMLQLJ9468-55-16 23:29:00<0.02 [facility]annCARDIAC OAQTNVQ3971-12-65 23:29:000.7[facility]annCARDIAC LHCWJVJ5891-46-22 23:29:0068[facility]annCARDIAC HPZLRFH5593-16-27 23:29:00 1.0[facility]annCARDIAC DDQCPYA6925-12-27 17:33:000.9[facility]annCARDIAC RMYYQPO8779-43-99 17:33:00<0.02[facility]annCARDIAC CJRNVVD9198-04-24 17:33:000.7[facility]annCARDIAC RXPTSJE8443-80-75 17:33:0076[facility] CHEM XTMBX2197-69-45 17:33:0090[facility] HermannCHEM WBASC4031-90-40 17:33:003.1 [facility]annCHEM PIADJ0689-23-08 17:33:36632Djswsggz HermannCHEM PANEL 2015-02-24 17:33:000.3[facility]annCHEM YOIXN7008-08-37 17:33:001.1[facility]annCHEM GOJVW3979-51-91 17:33:007.3[facility]annCHEM ZPSYK1379-41-06 17:33:0012[facility]annCHEM JEAGD2428-11-47 17:33:000.8[facility]annCHEM QXPRK4641-52-53 17:33:43776Ybvqdidw HermannCHEM YLBAY2319-91-24 17:33:0088 [facility]annCHEM IBDKK9124-01-15 17:33:003.3[facility]annCHEM PANEL 2015-02-24 17:33:91334Rkdwapqr HermannCHEM HBOOC4067-09-28 17:33:0010[facility]annCHEM EINUH6903-88-66 17:33:0015[facility]annCHEM EJKFW9320-79-15 17:33:0022[facility]annCHEM FHAZA8968-22-45 17:33:008.9[facility]annCHEM DYQSI7560-13-54 17:33:0030[facility]annCHEM ASYRR8591-61-74 17:33:006.6 [facility]annCHEM OAKJZ2802-56-06 17:33:003.5[facility]annHEMATOLOGY 2015-02-24 17:33:0055.9[facility] PvcupunVVIBTTTJKF7979-39-72 17:33:0028.7[facility] UtzhoeoCBPUIOVEXY3243-40-92 17:33:003.7[facility] WdlihlvFREEENIGOZ4701-46-73 17:33:000.7[facility] YpkfvheYRHEBCLBOB1958-76-60 17:33:001.9[facility] TQRKCWTMOF8777-06-47 17:33:002.2[facility] OremnjkGIWUXWNETW3464-86-33 17:33:00 12.5[facility] JuyliepXUEAFPXYXD8410-03-89 17:33:000.0[facility] HermannHEMATOLOGY 2015-02-24 17:33:000.1[facility] ItyccpmBSAAXDBHPU6511-66-45 17:33:000.8[facility] QqgfydrJPSWCSVMRG1869-32-53 17:33:008.8[facility] EaahwedRFUVGBFNXE6953-61-73 17:33:00 Test Item Value Reference Range Interpretation Comments MCH (test code = MCH) 28.1 pg 27.0-31.0 [facility] JpzuhvaRXHWFQXJZB4040-67-85 17:33:0014.8[facility] HermannHEMATOLOGY 2015-02-24 17:33:0032.2[facility] NvyenfhKGCZXHXCVB2414-11-30 17:33:04474Zaqlsefe BgprtrfCUHADKVWUT1614-07-39 17:33:0011.4[facility] FlhqsozQKOBDCZHCS9320-63-05 17:33:004.04[facility] YfiozpgBHWKIBABDD0520-98-38 17:33:006.5[facility] CGOUYZYDNT6636-80-66 17:33:0035.3[facility] MmyxtmnNHZIQWUQHE9378-48-00 17:33:00 87.2[facility] HermannCARDIAC NRURFKN8132-74-60 09:54:006[facility]annCARDIAC MTTUBUS5036-57-42 09:54:00<0.02[facility]annCARDIAC GUZPPIS8405-89-14 09:54:001.0[facility]annCARDIAC AWOLOKD6465-97-27 09:54:0077[facility] CHEM XVKTS4527-01-36 09:54:001.8[facility]annCHEM FAYWB0660-18-19 09:54:09194 [facility]annCHEM ENOQI2802-70-40 09:54:60811Oxccmhuj HermannCHEM PANEL 2015-02-17 09:54:003.8[facility] HermannCHEM VKCJO2018-94-22 09:54:63684Pkctqjte HermannCHEM CMFEF7939-30-20 09:54:008.6[facility] HermannCHEM ARWNY2603-69-43 09:54:0011.8[facility] HermannCHEM OEJNG5110-60-57 09:54:0025[facility]annCHEM XOQCY2485-65-68 09:54:000.6[facility] HermannCHEM AJCHG2728-46-20 09:54:006 [facility]annCHEM RLIRJ2924-10-64 09:54:0072[facility] HermannHEMATOLOGY 2015-02-17 09:54:0011.5[facility] UmhnpldXPTUHZ3939-44-14 09:54:0051[facility] SedxfplSCIVNY7188-44-48 09:54:0017[facility] MdkuzxdBXPBLL1931-11-79 09:54:0096 [facility] OgxicgzUQEVKK5074-71-58 09:54:44069Qfeurgyw EwzygbwWUHPPZ4839-74-84 09:54:0084[facility] KbcqqjqJTVGKS1920-46-35 09:54:003.22[facility] HermannSPECIAL RTSFMTAKD0267-90-29 09:54:005.8[facility] HermannCARDIAC LVGMYTM8573-93-24 04:20:00<0.02[facility]annCARDIAC TMLFTSI3198-96-40 04:20:0092[facility]annCARDIAC XAAMIAM7896-92-66 04:20:001.2[facility]annCARDIAC ENZYMES 2015-02-16 22:59:001.2[facility]annCARDIAC NPJFUFO1890-11-80 22:59:001.3 [facility]annCARDIAC GCNRRTL7641-11-50 22:59:0093[facility]annCARDIAC NJCPSGO1957-07-88 22:59:00<0.02[facility]annCARDIAC KJMLAED7086-57-01 22:59:004[facility] HermannCHEM DDCMC5149-21-06 22:59:84552Olaarkhg HermannCHEM NZDNX1103-64-47 22:59:001.0[facility] HermannCHEM FGBQP6791-27-90 22:59:003.6 [facility]annCHEM AFBWN6844-78-34 22:59:000.4[facility] HermannCHEM PANEL 2015-02-16 22:59:000.1[facility] HermannCHEM JODFC6781-55-79 22:59:000.5[facility] HermannCHEM UWHUU6020-44-57 22:59:007.3[facility] HermannCHEM VDSKU5943-66-87 22:59:70133Boreccty HermannCHEM QKOMF6102-59-94 22:59:0015[facility] HermannCHEM LDVUE6457-28-43 22:59:0021[facility]annCHEM NAJQJ4076-63-33 22:59:003.7 [facility]annCHEM YYJWX3852-97-56 22:59:003.1[facility] HermannCHEM PANEL 2015-02-16 22:59:001.9[facility] HermannCHEM VKKZE9885-39-64 22:59:0090[facility] HermannCHEM QYGOX1267-38-30 22:59:009.0[facility] HermannCHEM XUQZA7873-06-78 22:59:0028[facility] HermannCHEM WFQLX8021-04-12 22:59:43632Gocavend HermannCHEM MZWPY4563-95-81 22:59:000.8[facility] HermannCHEM AKHSY9545-17-92 22:59:0011 [facility]annCHEM LUDWR9626-24-72 22:59:003.5[facility] HermannCHEM PANEL 2015-02-16 22:59:52846Dqiqkzkh HermannCHEM PXZUN7616-53-03 22:59:0076[facility] HermannCHEM GONMD6180-83-97 22:59:007.5[facility] VlghmzeKHHRGBORGC8082-57-39 22:59:003.3[facility] PeenuqbGZVROQJNUE6862-66-05 22:59:009.1[facility] PCJOMBVHME5553-96-69 22:59:0028.9[facility] MaywzaqRBHKMSNLQQ9753-04-26 22:59:00 58.3[facility] JkmclwjBHPCJFWJWJ5950-55-13 22:59:003.8[facility] HermannHEMATOLOGY 2015-02-16 22:59:000.4[facility] KhymufnBFYBNNWYSZ0963-66-88 22:59:000.6[facility] DmvnracECKQLBSNOG0781-02-54 22:59:001.9[facility] EkaqyzsDSBXZINWSI5346-94-41 22:59:000.2[facility] NxpmiajJIYJDWNDRH2644-19-59 22:59:000.0[facility] NBKSZBHUEB8537-92-60 22:59:00 Test Item Value Reference Range Interpretation Comments PTT (test code = PTT) 36.0 s 22.9-35.8 [facility] PflvaanIKOLJWGGFX5803-67-39 22:59:00 Test Item Value Reference Range Interpretation Comments PT (test code = PT) 12.9 s 12.0-14.7 [facility] QkvthepPLCMWNUNRV8040-56-35 22:59:000.97[facility]annHEMATOLOGY 2015-02-16 22:59:06144Yfrwutmq LyiiyfdLYQOANAQEB3172-28-81 22:59:0014.7[facility] KkljofvFOVPTRTJXO2078-29-44 22:59:008.7[facility] CbpzkumDARKFTSLQD4602-22-64 22:59:0032.6[facility] FrzmicpZXMDMLGFMM7007-68-51 22:59:0039.5[facility] QEYJOHDSTK3774-74-79 22:59:0087.3[facility] VxgegnmMEQNZHMUIG9245-46-08 22:59:00 Test Item Value Reference Range Interpretation Comments MCH (test code = MCH) 28.4 pg 27.0-31.0 [facility] HwrhllwIVMYJAXRJQ3773-11-26 22:59:004.52[facility]annHEMATOLOGY 2015-02-16 22:59:0012.9[facility] PdqixlvRFDEGJRTIZ4664-39-53 22:59:006.5[facility] RozuugnWEBARMSAL7347-42-96 22:59:0046[facility]annCARDIAC QSNHLYY7649-97-72 21:17:0015[facility]annCARDIAC UGJPGCP7648-71-48 21:17:00<0.02[facility]annCARDIAC SYKOROH0541-13-71 21:17:0080[facility]annCARDIAC ENZYMES 2013-12-22 21:17:00<0.5[facility]annCARDIAC OAZHHNV0480-00-85 21:17:00 <0.6[facility] HermannCHEM OBZBT3462-27-43 21:17:98926Hfjsmgny HermannCHEM AKOXD7293-38-34 21:17:003.6[facility] HermannCHEM YSVUG5084-59-81 21:17:0017 [facility]annCHE[facility] JNUWW0255-24-48 21:17:001.1[facility]annCHEM PANEL 2013-12-22 21:17:52199Zsiylbwv HermannCHEM KCIDS8776-64-41 21:17:0034[facility] HermannCHEM WYENJ3171-11-94 21:17:003.9[facility]annCHEM EAQKC7725-75-86 21:17:0089[facility]annCHEM AFSVH1250-00-87 21:17:0022[facility]annCHEM ZTKYG5929-56-02 21:17:000.6[facility]annCHEM TSNWF6810-48-43 21:17:005.5 [facility]annCHE[facility] TOYHM3576-48-49 21:17:000.6[facility]annCHEM PANEL 2013-12-22 21:17:0010[facility] HermannCHEM ILART1826-03-91 21:17:003.5[facility]annCHEM PFUBJ9065-09-01 21:17:32003Gusdmlzc HermannCHEM CHLFZ1626-28-23 21:17:33262Nepeiuzv HermannCHEM ECZWP1827-02-16 21:17:0029[facility]annCHEM TJWCS5346-31-77 21:17:007.5[facility]annCHEM AGVUJ7190-39-47 21:17:009.2 [facility]annDR[facility] HYPUAL4418-44-65 21:17:00Negative *NA*(12/22/13 4:17 PM) [facility] PTIRXZ6140-44-88 21:17:00Negative *NA*(12/22/13 4:17 PM) [facility] CRDTAE3419-60-74 21:17:00See Note 4*NA*(12/22/13 4:17 PM) [facility] AQKWGS0704-88-56 21:17:00Negative *NA*(12/22/13 4:17 PM) [facility] OOUDEV6483-34-98 21:17:00Negative *NA*(12/22/13 4:17 PM) [facility] NPFXVE1053-29-46 21:17:00Negative *NA*(12/22/13 4:17 PM) [facility] HermannDRUG DOCRZY5939-58-17 21:17:00Negative *NA*(12/22/13 4:17 PM) [facility] JQIEWO6462-24-66 21:17:00Negative *NA*(12/22/13 4:17 PM) [facility] LiwhbdwETOIWGSPAU2996-49-03 21:17:00 Test Item Value Reference Range Interpretation Comments PTT (test code = PTT) 35.2 s 22.9-35.8 [facility] NcderaxYITVYCPEZL3229-57-03 21:17:00 Test Item Value Reference Range Interpretation Comments PT (test code = PT) 12.2 s 12.0-14.7 [facility] UigbgczQUPAVCHPPE0080-90-01 21:17:000.91[facility]annHEMATOLOGY 2013-12-22 21:17:008.4[facility] EmueywfHXRHOYMVZZ1643-16-71 21:17:00 Test Item Value Reference Range Interpretation Comments MCH (test code = MCH) 29.2 pg 27.0-31.0 [facility] EaqeyynSFRBIQAMAL7259-73-27 21:17:0033.4[facility]annHEMATOLOGY 2013-12-22 21:17:0014.5[facility] FzkdadnVLRIQNQBUO6680-49-84 21:17:15503Lotqtytc TxhjckzWWDLPMEUZB3240-78-74 21:17:0041.6[facility] MgbgqdbLFMCTCRZYH3662-73-03 21:17:0087.5[facility] ArtwngjRSKFDPIPSC4423-81-14 21:17:004.76[facility] VRZCBKTNTX8780-09-66 21:17:0013.9[facility] DgussevFGZWOZVGFQ6912-63-77 21:17:00 8.5[facility] AxhrhkzUQYIQOVMZI5086-55-23 21:17:000.2[facility]annHEMATOLOGY 2013-12-22 21:17:000.0[facility] KogcrxkKAVEGGJYQT1756-53-32 21:17:0066.1[facility] KqrxrzsEPSQDPAEIO5379-13-36 21:17:006.1[facility] CcgmbcoJNXQQONQWL0018-43-42 21:17:0025.0[facility] BlbyfmaXMEPNPAOMN3227-03-39 21:17:002.4[facility] XESEDDIASZ3587-24-83 21:17:000.4[facility] QtfoyvgOVVXZZPPLU6634-92-20 21:17:002.1 [facility] FudyjlvFSAEMHIDXH5151-30-20 21:17:000.5[facility]annHEMATOLOGY 2013-12-22 21:17:005.6[facility]annURINE AND KSENG6484-10-98 21:17:00Trace *ABN*(12/22/13 4:17 PM)[facility] GGLBY1882-71-78 21:17:00Negative *NA*(12/22/13 4:17 PM)[facility] YQUPO8249-43-80 21:17:000.2 [facility] IIZZA7314-82-49 21:17:00Small *ABN*(12/22/13 4:17 PM) [facility] WZZWI2722-24-44 21:17:00Negative *NA*(12/22/13 4:17 PM) [facility] HBDBX0046-72-71 21:17:00Negative (12/22/13 4:17 PM) [facility] YUYMP7726-16-00 21:17:00Clear (12/22/13 4:17 PM) [facility] EKLBK0128-97-17 21:17:00Yellow *NA*(12/22/13 4:17 PM) [facility] XPTGH1006-73-50 21:17:00 Test Item Value Reference Range Interpretation Comments UA pH (test code = UA pH) 6.0 1 5.0-8.0 [facility] ZCGVX2470-59-93 21:17:00 Test Item Value Reference Range Interpretation Comments UA Spec Grav (test code = UA Spec 1.015 1 Grav) [facility] JMCFS8171-36-19 21:17:00Negative (12/22/13 4:17 PM) [facility] NEOZR3189-55-59 21:17:00Negative (12/22/13 4:17 PM) [facility]annCHEM IFKNK3824-79-94 15:55:312.7[facility] HermannCHEM PANEL 2013-12-17 15:55:312.2[facility] KfqgaiqDIOXWNOPJQWC5266-60-82 15:55:3110.5 [facility] EpwvkntAGDNSYSWVMOT4079-10-91 15:55:3191[facility] HermannELECTROLYTES 2013-12-17 15:55:3110[facility] RvlfrdgZMEJXGWRPHNE1644-84-16 15:55:310.8[facility] WhmshtzMRQKYLWZPCYF1573-97-51 15:55:31917Qkfeycfh ShrvicdLQHTTMWQLIES3409-21-99 15:55:3187[facility] UodrycoEQYQMHJQBXEC3690-20-65 15:55:3130[facility] Mac[facility] HHIVPHNCPNQT8362-96-60 15:55:314.5[facility] DwbnnovZKPHKREHUOMG6531-55-07 15:55:09877Yuvtmtdi RjstdkrGMEQQTHFQLOY5625-11-14 15:55:318.6[facility] DLOLFHZPZL9467-61-27 15:55:310.97[facility] NyihjijUAEJSMHBKF1640-99-28 15:55:31 Test Item Value Reference Range Interpretation Comments PTT (test code = PTT) 32.4 s 22.9-35.8 [facility] PoqolpeQRUOLTOFFY3277-98-16 15:55:31 Test Item Value Reference Range Interpretation Comments PT (test code = PT) 12.8 s 12.0-14.7 [facility] XxirjekBOFUTJOZXJ5661-60-81 15:55:3113.7[facility] HermannHEMATOLOGY 2013-12-17 15:55:314.88[facility] BqvwfcpRXZCDLZYNR4691-30-36 15:55:31 Test Item Value Reference Range Interpretation Comments MCH (test code = MCH) 28.1 pg 27.0-31.0 [facility] PcopixvYSLPAOQAOH6943-12-68 15:55:3142.1[facility] HermannHEMATOLOGY 2013-12-17 15:55:3186.4[facility] YkcenijENQUZAXWSX1146-71-86 15:55:3114.3[facility] RmzszdzRCJWLXBQLH4609-28-16 15:55:3132.5[facility] KerkhvdDCNIKSNBXW8009-34-22 15:55:318.4[facility] RaohfsyAEWOWTYFOL5205-18-74 15:55:59465Rdxbholt Hatch CJXROMJXAY2517-75-84 15:55:317.2[facility] QfndjztULDHLNIHWJ6387-83-70 15:55:31 10.7[facility] JneupnwWAAXGXKSCA6734-17-93 15:55:3127.2[facility] HermannHEMATOLOGY 2013-12-17 15:55:311.9[facility] OgjwjiqFWOXUJGKQU0156-42-52 15:55:313.2[facility] TtzqoebCNJUGFJPYA7041-30-83 15:55:310.6[facility] DcmzhllHFRQUYYCCU5933-64-30 15:55:314.2[facility] AfxhbqdUXBUBMQVQR6137-82-46 15:55:310.2[facility] CSKBZDOFUJ5571-07-05 15:55:310.8[facility] MwhmhnqHOOJQCQJEV9675-63-77 15:55:31 58.3[facility] HermannPARATHYROID XRKBBAJ2642-99-39 15:55:191.11[facility] PARATHYROID BCFXUZQ0390-58-79 15:55:191.17[facility] HermannDRUG JOYLOD1419-76-69 03:45:57Negative *NA*(12/16/13 10:45 PM)[facility]annDR[facility] XBUMXP6993-29-56 03:45:57Positive *ABN*(12/16/13 10:45 PM)[facility]annDR[facility] IXWIBR4154-58-60 03:45:57Negative *NA*(12/16/13 10:45 PM)[facility] DKMUPV5019-71-28 03:45:57Negative *NA*(12/16/13 10:45 PM)[facility]annDR[facility] RYRCDB8166-96-93 03:45:57Negative *NA*(12/16/13 10:45 PM)[facility]annDR[facility] HCDRZV9631-08-83 03:45:57See Note 6(12/16/13 10:45 PM)[facility]annDR[facility] ONGPSR3699-94-85 03:45:57Negative *NA*(12/16/13 10:45 PM)[facility]annDR[facility] TYEGIO0740-62-76 03:45:57Negative *NA*(12/16/13 10:45 PM)[facility] HermannCARDIAC BAKPHXH0504-05-22 03:45:0056[facility]annCARDIAC EZDKFTQ0897-27-03 03:45:00<0.010[facility]annCARDIAC OTUIZWA3143-96-80 03:45:00<0.02[facility] HermannCARDIAC ENZYMES 2013-12-17 03:45:0013[facility] TzryyliBYKLCV1543-90-66 03:45:0018[facility] CIOAPA5968-05-78 03:45:0088[facility] LyuocqrPOCRDG8325-80-73 03:45:0088[facility] LdjpsdaMVEMNI8403-31-66 03:45:003.08[facility] DkiguhoIOWXGF3692-10-11 03:45:56079 [facility] QjsewpxEGQBQV0322-68-24 03:45:0051[facility] HermannSPECIAL CHEMISTRY 2013-12-17 03:45:005.3[facility] HermannTHYROID GOPJT0416-83-35 03:45:000.870 [facility]annCARDIAC KZXMAIV4921-90-98 22:09:0042[facility]annCARDIAC QPZITUL2000-07-78 22:09:00<0.02[facility] HermannCHEM DCCLR1976-24-94 19:30:00 1.3[facility] ZdxlwbxSDVGGTCTXR2919-13-07 19:30:00 Test Item Value Reference Range Interpretation Comments PT (test code = PT) 11.8 s 12.0-14.7 [facility] ApdiimeHEIGGDULNJ7440-96-90 19:30:000.87[facility] HermannHEMATOLOGY 2013-12-16 19:30:00 Test Item Value Reference Range Interpretation Comments PTT (test code = PTT) 31.2 s 22.9-35.8 [facility] FapntnpDEDHAEVKUD5503-88-59 19:30:004.69[facility] HermannHEMATOLOGY 2013-12-16 19:30:006.6[facility] VyqghhvEZQAGVVTGL8002-16-46 19:30:0040.5[facility] YtlyiigUSGKIXCRIS6409-40-91 19:30:0086.4[facility] SkwceslTFBGKBGOSV4385-03-74 19:30:0013.6[facility] JtemhplBWFQIOVUSX3252-75-32 19:30:00 Test Item Value Reference Range Interpretation Comments MCH (test code = MCH) 29.0 pg 27.0-31.0 [facility] FalctdmAGYYGTLAGB9133-31-24 19:30:0033.6[facility] HermannHEMATOLOGY 2013-12-16 19:30:21990Nyczzehw NtqinffIXRQFKDOSC2798-86-68 19:30:0013.4[facility] VlkcuynXXZPLQUHQJ3966-16-38 19:30:008.6[facility] GwypjahAEUQFWHWFE3385-12-69 19:30:000.8[facility] DdabpqqYXAYBRPKEL2701-03-71 19:30:000.0[facility] CJZXUMZUAA8199-97-53 19:30:0012.1[facility] AvrzfrrSULILQRXPP0893-94-36 19:30:00 3.8[facility] KhnuikuCMPCCBVHYL6926-74-91 19:30:000.6[facility] HermannHEMATOLOGY 2013-12-16 19:30:003.9[facility] GvuprdiCUEEPSREQK8871-75-71 19:30:000.3[facility] SgjnwugBCZTPRCKAA7146-34-52 19:30:001.6[facility] NalsewkTNZGYTKDYU5091-33-30 19:30:0025.0[facility] DovjbyiICNSSUNYHJ7366-69-54 19:30:0058.5[facility] CHEM JNHPK3077-27-44 17:43:2479[facility] HermannCHEM KTPNI2682-34-81 17:43:240.9 [facility] HermannCHEM OWWCJ7454-48-53 17:43:39894Awoectob HermannCHEM PANEL 2013-12-16 17:43:244.5[facility] HermannCHEM PWSIX8402-46-87 17:43:87968Rqhztjja HermannCHEM KRNWE7709-51-53 17:43:2478[facility] HermannCHEM DJJPE6706-09-39 17:43:2411[facility] HermannCHEM ANTEI6336-98-65 17:43:241.0[facility] HermannCHEM AXMDW2307-61-66 17:43:2412[facility] HermannCHEM HCILO9978-96-59 17:43:243.6 [facility] HermannCHEM FQNLW0709-06-10 17:43:2416.5[facility] HermannCHEM PANEL 2013-12-16 17:43:247.2[facility] HermannCHEM TRARP2115-14-14 17:43:2419[facility] HermannCHEM ESCMA1620-06-46 17:43:2423[facility] HermannCHEM DZCGR0067-53-01 17:43:249.2[facility] HermannCHEM UQTGU9211-97-57 17:43:240.3[facility] HermannCHEM QNSMS4096-08-47 17:43:243.6[facility] HermannCHEM NKGZT3158-50-67 17:43:2487 [facility] HermannCHEM MIVAR4296-89-64 17:43:2431[facility] HermannCARDIAC ENZYMES 2013-12-16 17:43:0056[facility] HermannCARDIAC ECURUZR6542-82-90 17:43:00<0.02 [facility]annCARDIAC YAFHOKK1656-66-25 19:12:00<0.02[facility] CARDIAC KSZYZAX0251-10-78 19:12:0049[facility] HermannCARDIAC DZLEATH3990-33-56 19:12:00<0.010[facility] HpkmjlcRFYYPANFE2476-05-34 19:12:0036[facility] CARDIAC PKOSVTR7140-84-44 12:35:00<0.010[facility] HermannCARDIAC ENZYMES 2013-11-08 12:35:0054[facility] HermannCARDIAC EJEGDRB1056-41-86 12:35:00<0.02 [facility]annCARDIAC ANBBRQC5015-52-90 08:36:00<0.02[facility] MBWPYXFJSCZA4663-78-66 08:36:0011.4[facility] XrtphbpQRJTRSYWARCB7752-19-25 08:36:0069[facility] AkbaakbOSRXUQHTSINF9055-06-45 08:36:009.2[facility] KYKGLZOVFOAM7909-91-65 08:36:0027[facility] ZiilxuhODUALWKLJOLI3597-96-30 08:36:00 105[facility] TmixortVZDLLUMGLDMD4272-39-79 08:36:003.4[facility] JVVPHSWCMVCP3688-40-78 08:36:63278Wcrqgaxi DzmxsadULSCCIUWQWOO9237-39-26 08:36:0011[facility] RrjjulsUYSOXKRCVHXU0690-53-02 08:36:0084[facility] MQZPCPBJPJHI9169-47-16 08:36:001.0[facility] AvjgaaaRMNVKSVHYJ3402-22-62 08:36:00 0.1[facility] CdlrjlbQYKCIOBVNX5248-88-75 08:36:000.2[facility] HermannHEMATOLOGY 2013-11-08 08:36:000.8[facility] AielawhDNNSBMYBDI6924-26-35 08:36:0072.5[facility] UnezcauZGKTEBPMFZ0154-75-89 08:36:0017.0[facility] RynkdncUJPGQXCBMQ9244-27-93 08:36:002.1[facility] AmceexcPXCPBDBWPN3391-21-84 08:36:007.8[facility] QVLPVOTXNS6296-79-44 08:36:007.6[facility] ZiiasrzUHZJYALCGD8357-43-17 08:36:000.6 [facility] ZeoggpbGUOWDLMWJI7999-67-67 08:36:001.8[facility] HermannHEMATOLOGY 2013-11-08 08:36:008.7[facility] XpbllkxQWSHFDVPKA7349-22-79 08:36:0014.0[facility] GwgvtvqXBUPSRAIAX5335-11-10 08:36:56095Vrhwqnxz MhrkjsgRHGJSARHAD2914-51-18 08:36:0033.9[facility] TioimnvOQNMUEOFAK9558-82-92 08:36:004.65[facility] SFUFDNUBJQ6025-27-01 08:36:0010.6[facility] UnnvghlEUZMQKIVUW4907-39-50 08:36:00 Test Item Value Reference Range Interpretation Comments MCH (test code = MCH) 29.3 pg 27.0-31.0 [facility]EEFUGBDUVX8735-67-78 08:36:0086.6[facility] HermannHEMATOLOGY 2013-11-08 08:36:0013.6[facility] UovwqjgLRACTRARDP2239-38-33 08:36:0040.2[facility]
[2020-07-05 14:08] LABS: Absolute Lymphocytes (CBC) 1.8 K/uL (0.7-4.9); Hematocrit 41.7 % (36.0-45.0); Lymphocytes % 31.5 % (15.3-44.8); MPV 7.7 fL (7.6-11.3); RBC Red Blood Cell Count 4.87 M/uL (3.86-4.86)
[2020-07-05 14:11] LABS: Protime INR 0.91
[2020-07-05] MEDS ORDERED: ONDANSETRON 4 MG/2 ML VIAL ONE (14:27)
[2020-07-05] MEDS ORDERED: NA CHLORIDE 0.9% 500 ML ONE (14:27)
[2020-07-05] MEDS ORDERED: FENTANYL CITR 100 MCG/2 ML ONE (14:27)
[2020-07-05 14:35] LABS: ALT/SGPT 26 U/L (12-78); AST/SGOT 23 U/L (15-37); Albumin 3.4 g/dL (3.4-5.0); Alkaline Phosphatase 70 U/L (45-117); BUN Blood Urea Nitrogen 12 mg/dL (7-18); Bicarbonate 27 mmol/L (21-32); Bilirubin Direct < 0.1 mg/dL (0-0.2); Bilirubin Total 0.3 mg/dL (0.2-1.0); Glucose Level 89 mg/dL (74-106); Magnesium 2.3 mg/dL (1.8-2.4); NT PRO-BNP 21 pg/mL (<125); Potassium 4.1 mmol/L (3.5-5.1); Sodium Level 142 mmol/L (136-145); Troponin (Emerg Dept Use Only) < 0.02 ng/mL (0.0-0.045)
--- NOTE | 2020-07-05 14:44 | RAD REPORT ---
EXAM DESCRIPTION: CT - Stone Protocol - 07/05/2020 2:20 pm CLINICAL HISTORY: Abdominal pain. COMPARISON: June 24, 2020 TECHNIQUE: Computed axial tomography of the abdomen pelvis was obtained without oral or IV contrast. Lack of IV and oral contrast limits evaluation of solid organs, bowel, and vessels. Coronal reformat marcelle images were obtained and reviewed. All CT scans are performed using dose optimization technique as appropriate and may include automated exposure control or mA/KV adjustment according to patient size. FINDINGS: Small bilateral renal calculi. A ureteral calculus is not seen. No hydronephrosis. A bladd er calculus is not present The liver, spleen, pancreas and adrenals appear grossly normal There is no evidence of diverticulitis. The appendix appears normal Postsurgical changes involve lumbar spine. Chronic compression deformities involve the T12 and L2 heaven tebral bodies. Calcified uterine fibroids are again demonstrated. A moderate amount of stool within the colon IMPRESSION: Small, bilateral nonobstructing renal calculi
--- NOTE | 2020-07-05 14:49 | RAD REPORT ---
EXAM DESCRIPTION: Leila Single View07/05/2020 2:07 pm CLINICAL HISTORY: sob COMPARISON: May 2020 FINDINGS: The lungs appear clear of acute infiltrate. The heart is normal size IMPRESSION: No acute abnormalities displayed
--- NOTE | 2020-07-05 15:46 | ER ---
Nurse's Notes [facility] Name: Winsome Yepez Age: 70 yrs Sex: Female : 1950 Arrival Date: 07/05/2020 Time: 13:22 Bed 7 Private MD: Diagnosis: Low back pain;Unspecified abdominal pain Presentation: 07/05 13:23 Chief complaint: Patient states: intermittent SOB since Tuesday, was recently discharged iw from [facility] for back pain. Coronavirus screen:. Ebola Screen: Patient negative for fever greater than or equal to 101.5 degrees Fahrenheit, and additional compatible Ebola Virus Disease symptoms Patient denies exposure to infectious person. Patient denies travel to an Ebola-affected area in the 21 days before illness onset. No symptoms or risks identified at this time. Initial Sepsis Screen: Does the patient meet any 2 criteria? No. Patient's initial sepsis screen is negative. Does the patient have a suspected source of infection? No. Patient's initial sepsis screen is negative. Risk Assessment: Do you want to hurt yourself or someone else? Patient reports no desire to harm self or others. Onset of symptoms was July 04, 2020. 13:23 Method Of Arrival: EMS: [facility] iw 13:23 Acuity: CYNTHIA 3 iw Historical: - Allergies: 13:27 PENICILLINS; iw - PMHx: 13:27 Asthma; High Cholesterol; Hypertension; Myocardial infarction; Sickle Cell; iw - PSHx: 13:27 back; Heart stents; iw - Immunization history:: Adult Immunizations up to date. - Social history:: Smoking status: Patient reports the use of cigarette tobacco products, smokes one pack cigarettes per day. Screenin:50 Abuse screen: Denies threats or abuse. Nutritional screening: No deficits noted. em Tuberculosis screening: No symptoms or risk factors identified. Fall Risk None identified. Assessment: 13:50 General: Appears in no apparent distress. comfortable, Behavior is calm, cooperative, em appropriate for age, Denies fever. Pain: Complains of pain in lumbar area Pain currently is 9 out of 10 on a pain scale. Neuro: Level of Consciousness is awake, alert, obeys commands, Oriented to person, place, time, situation, Appropriate for age. Cardiovascular: Rhythm is regular. Respiratory: Airway is patent Respiratory effort is even, unlabored, Respiratory pattern is regular, symmetrical, Breath sounds are clear bilaterally. GI: Reports nausea. Derm: Skin is intact, is thin, Skin is pink, warm \T\ dry. Musculoskeletal: Range of motion: intact in all extremities. 14:12 Reassessment: BP in the low 80's, provider notified. em 15:00 Reassessment: Patient appears in no apparent distress at this time. Patient and/or em family updated on plan of care and expected duration. Pain level reassessed. Patient is alert, oriented x 3, equal unlabored respirations, skin warm/dry/pink. 16:10 Reassessment: waiting to get a hold of a family member to come pickup driver pt. em 17:27 Reassessment: grand daughter states she does not have a vehicle and they don't have any iw friends or family that can pick pt up, they just moved into town. 18:00 Reassessment: report given to EMS. em Vital Signs: 13:23 BP 95 / 56; Pulse 67; Resp 20 S; Temp 97.8; Pulse Ox 100% on R/A; Weight 45.36 kg; iw Height 5 ft. 0 in. (152.40 cm); Pain 9/10; 13:48 BP 87 / 50; Pulse 67; Resp 18; Pulse Ox 99% on R/A; em 14:08 BP 83 / 57; Pulse 73; em 15:00 BP 108 / 57; Pulse 71; Resp 18; Pulse Ox 98% on R/A; em 16:00 BP 87 / 53; Pulse 69; Resp 18; Pulse Ox 99% on R/A; em 13:23 Body Mass Index 19.53 (45.36 kg, 152.40 cm) iw 16:00 provider notified of BP em ED Course: 13:22 Patient arrived in ED. iw 13:26 Triage completed. iw 13:26 Koby Gilmore PA is PHCP. [facility] 13:26 Mark Jones MD is Attending Physician. [facility] 13:27 Arm band placed on. iw 13:42 Brad Fontana, RN is Primary Nurse. em 13:50 Patient has correct armband on for positive identification. Placed in gown. Bed in low em position. Call light in reach. Side rails up X2. Adult w/ patient. threat monitoring analyst on. Pulse ox on. NIBP on. 13:55 Initial lab(s) drawn, by me, sent to lab. Inserted saline lock: 22 gauge in right em forearm, using aseptic technique. Blood collected. 14:07 XRAY Chest (1 view) In Process Unspecified. EDMS 14:20 CT Stone Protocol In Process Unspecified. EDMS 17:30 No provider procedures requiring assistance completed. em 17:30 IV discontinued, intact, bleeding controlled, No redness/swelling at site. Pressure em dressing applied. Administered Medications: 14:43 Drug: NS 0.9% 500 ml Route: IV; Rate: bolus; Site: right wrist; em 16:30 Follow up: Response: No adverse reaction; IV Status: Completed infusion; IV Intake: em 500ml 15:27 Drug: Zofran (Ondansetron) 4 mg Route: IVP; Site: right wrist; em 16:30 Follow up: Response: No adverse reaction; Marked relief of symptoms; Nausea is decreasedem 16:46 Not Given (Physician Discretion): fentaNYL (PF) 25 mcg IVP once; RASS on ADMIN: em Combtv4, Very Agttd3, Agttd2, Rstlss1, AlertClm0, Drwsy-1, Lt Sdtn-2, Mod Sdtn-3, Dp Sdtn-4, UnArsble-5 Intake: 16:30 IV: 500ml; Total: 500ml. em Outcome: 15:46 Discharge ordered by . [facility] 18:02 Discharged to home via wheelchair. em 18:02 Condition: stable 18:02 Discharge instructions given to patient, EMS, Instructed on discharge instructions, follow up and referral plans. Demonstrated understanding of instructions, follow-up care. 18:03 Patient left the ED. em Signatures: Dispatcher [employer] EDKS Koby Gilmore PA PA jmm Munoz, Edgar, RN RN em Sandi Cooper RN RN iw
--- NOTE | 2020-07-05 15:46 | EDPHYS ---
Physician Documentation [facility] Name: Winsome Yepez Age: 70 yrs Sex: Female : 1950 Arrival Date: 07/05/2020 Time: 13:22 Bed 7 Private MD: EMMANUEL Physician Mark Jones HPI: 07/05 13:52 This 70 yrs old Black Female presents to ER via EMS with complaints of low back pain, jmm abdominal pain, shortness of breath. 13:52 The patient presents with pain that is chronic. The symptoms are located in the low jmm back. The pain radiates to the abdomen. Onset: The symptoms/episode began/occurred gradually. Modifying factors: The patient symptoms are alleviated by nothing, the patient symptoms are aggravated by any movement, movement. The patient has experienced similar episodes in the past. This is a 70 year old female with a history of CAD, chronic lower back pain since 1999 presents to the ED with complaints of ongoing pain to the lower back, patient also complains of ongoing pain to her abdomen. Denies vomiting or diarrhea. But states having shortness of breath during pain. . Historical: - Allergies: 13:27 PENICILLINS; iw - PMHx: 13:27 Asthma; High Cholesterol; Hypertension; Myocardial infarction; Sickle Cell; iw - PSHx: 13:27 back; Heart stents; iw - Immunization history:: Adult Immunizations up to date. - Social history:: Smoking status: Patient reports the use of cigarette tobacco products, smokes one pack cigarettes per day. ROS: 13:52 Constitutional: Negative for fever, chills, and weight loss, Cardiovascular: Negative jmm for chest pain, palpitations, and edema. 13:52 Respiratory: Positive for shortness of breath. 13:52 Back: Positive for pain at rest. 13:52 All other systems are negative. Exam: 13:52 Constitutional: This is a well developed, well nourished patient who is awake, alert, jmm and in no acute distress. Head/Face: atraumatic. Eyes: EOMI, no conjunctival erythema appreciated ENT: Moist Mucus Membranes Neck: Trachea midline, Supple Chest/axilla: Normal chest wall appearance and motion. Cardiovascular: Regular rate and rhythm. No edema appreciated Respiratory: Normal respirations, no respiratory distress appreciated Back: Normal ROM 13:52 Abdomen/GI: Inspection: abdomen appears normal, Bowel sounds: normal, Palpation: soft, mild abdominal tenderness, in the left upper quadrant and left lower quadrant. 13:52 Back: ROM is normal. 13:52 Musculoskeletal/extremity: ROM: intact in all extremities. 13:52 Skin: Appearance: Color: normal in color. 13:52 Neuro: Orientation: is normal, Mentation: is normal, Memory: is normal. 13:52 Psych: Behavior/mood is pleasant, cooperative. 15:01 ECG was reviewed by the Attending Physician. [facility] Vital Signs: 13:23 BP 95 / 56; Pulse 67; Resp 20 S; Temp 97.8; Pulse Ox 100% on R/A; Weight 45.36 kg; iw Height 5 ft. 0 in. (152.40 cm); Pain 9/10; 13:48 BP 87 / 50; Pulse 67; Resp 18; Pulse Ox 99% on R/A; em 14:08 BP 83 / 57; Pulse 73; em 15:00 BP 108 / 57; Pulse 71; Resp 18; Pulse Ox 98% on R/A; em 16:00 BP 87 / 53; Pulse 69; Resp 18; Pulse Ox 99% on R/A; em 13:23 Body Mass Index 19.53 (45.36 kg, 152.40 cm) iw 16:00 provider notified of BP em MDM: 13:28 Patient medically screened. [facility] 15:44 Data reviewed: vital signs, nurses notes. Counseling: I had a detailed discussion with [facility] the patient and/or guardian regarding: the historical points, exam findings, and any diagnostic results supporting the discharge/admit diagnosis, lab results, radiology results, the need for outpatient follow up, to return to the emergency department if symptoms worsen or persist or if there are any questions or concerns that arise at home. ED course: Patient is alert and non toxic in appearance in the ED. Patient is advised to follow up with pcp and otherwise given strict return precautions. patient understood and agrees with the plan of care. . 07/05 13:41 Order name: Basic Metabolic Panel; Complete Time: 14:38 [facility] 07/05 13:41 Order name: CBC with Diff; Complete Time: 14:14 [facility] 07/05 13:41 Order name: LFT's; Complete Time: 14:38 [facility] 07/05 13:41 Order name: Magnesium; Complete Time: 14:38 [facility] 07/05 13:41 Order name: NT PRO-BNP; Complete Time: 14:38 [facility] 07/05 13:41 Order name: PT-INR; Complete Time: 14:14 [facility] 07/05 13:41 Order name: Troponin (emerg Dept Use Only); Complete Time: 14:38 [facility] 07/05 13:41 Order name: XRAY Chest (1 view); Complete Time: 14:51 [facility] 07/05 13:41 Order name: EKG; Complete Time: 13:42 [facility] 07/05 13:44 Order name: CT Stone Protocol; Complete Time: 14:51 [facility] 07/05 15:40 Order name: Urine Dipstick--Ancillary (enter results); Complete Time: 16:16 07/05 13:41 Order name: IV Saline Lock; Complete Time: 13:59 [facility] 07/05 13:41 Order name: Labs collected and sent; Complete Time: 13:59 [facility] 07/05 13:41 Order name: O2 Per Protocol; Complete Time: 13:46 [facility] 07/05 13:41 Order name: O2 Sat Monitoring; Complete Time: 13:46 [facility] 07/05 15:15 Order name: Urine Dipstick-Ancillary (obtain specimen); Complete Time: 15:47 jmm EC:01 Rate is 64 beats/min. Rhythm is regular. QRS [place] is Normal. ME interval is normal. QRS jmm interval is normal. QT interval is normal. No Q waves. T waves are Normal. No ST changes noted. Reviewed by me. Administered Medications: 14:43 Drug: NS 0.9% 500 ml Route: IV; Rate: bolus; Site: right wrist; em 16:30 Follow up: Response: No adverse reaction; IV Status: Completed infusion; IV Intake: em 500ml 15:27 Drug: Zofran (Ondansetron) 4 mg Route: IVP; Site: right wrist; em 16:30 Follow up: Response: No adverse reaction; Marked relief of symptoms; Nausea is decreasedem 16:46 Not Given (Physician Discretion): fentaNYL (PF) 25 mcg IVP once; RASS on ADMIN: em Combtv4, Very Agttd3, Agttd2, Rstlss1, AlertClm0, Drwsy-1, Lt Sdtn-2, Mod Sdtn-3, Dp Sdtn-4, UnArsble-5 Disposition: 07/05/20 15:46 Discharged to Home. Impression: Low back pain, Unspecified abdominal pain. - Condition is Stable. - Discharge Instructions: Abdominal Pain, Adult, Back Pain, Adult. - Medication Reconciliation Form, Thank You Letter, Antibiotic Education, Prescription Opioid Use form. - Follow up: Private Physician; When: 2 - 3 days; Reason: Recheck today's complaints, Continuance of care, Re-evaluation by your physician. Addendum: 07/07/2020 08:48 Co-signature as Attending Physician, Mark Jones MD I agree with the assessment and c perez plan of care. Signatures: Dispatcher [employer] Mark Kumari MD MD cha Mickail, Joel, PA PA jmm Munoz, Edgar, RN RN Sandi Delgado RN RN iw Corrections: (The following items were deleted from the chart) 07/05 18:03 15:46 07/05/2020 15:46 Discharged to Home. Impression: Low back pain; Unspecified em abdominal pain. Condition is Stable. Forms are Medication Reconciliation Form, Thank You Letter, Antibiotic Education, Prescription Opioid Use. Follow up: Private Physician; When: 2 - 3 days; Reason: Recheck today's complaints, Continuance of care, Re-evaluation by your physician. paddy
[2020-07-05 16:04] LABS: Urine Blood TRACE (NEG); Urine Glucose NEGATIVE (NEG); Urine Protein NEGATIVE (NEG)
[2020-07-05 18:27] VITALS: TEMP 97.8
[2020-07-05 18:33] VITALS: BP 87/53; O2SAT 99
--- NOTE | 2020-07-07 07:27 | EKG ---
Test Date: 2020-07-05 Test Time: 14:54:10 Printing Machine Operator: DERIK MEASUREMENT RESULTS: Intervals: Rate: 64 MD: 130 QRSD: 88 QT: 396 QTc: 408 Rush: P: 65 MD: 130 QRS: 64 T: 67 INTERPRETIVE STATEMENTS: Normal sinus rhythm with sinus arrhythmia Normal ECG Compared to ECG 06/25/2020 22:56:11 No significant changes Electronically Signed On 07-07-20 07:23:51 MEDICAL BILLING AND CODING SPECIALIST by Clint Norris
== END 2020-07-05 18:03 | disposition home or self-care (01) ==
LOC: ER 13:17
DX: R10.9 Unspecified abdominal pain (principal); I10 Essential (primary) hypertension; N20.0 Calculus of kidney; Z88.0 Allergy status to penicillin; Z95.818 Presence of other cardiac implants and grafts
CPT/HCPCS: 96361; 93005; 85025; 80048; 36415; 83735; 85610; 80076; 81003; 84484; 83880; 76377; 74176; 71045; 96374; 99284; J7040; J2405; J3010

== ENCOUNTER 2020-08-20 00:20 | Emergency (ER) | payer OTHER ==
--- OUTSIDE RECORDS SUMMARY | 2020-08-20 00:22 | XMS REPORT | Clinical Summary ---
:1950 Author Organization [facility] Distr ict Address [facility] [place] [address] Care Team Providers Name Role Phone Unavailable [...] Assigned at Date Recorded Not on file Last Filed Vital Signs Not on file Plan of Treatment Health Maintenance Due Date Last Done Comments Breast Cancer Scrn (Yearly) 1990 FIT Colorectal Cancer Scrn 2000 IMM Pneumococcal Age 65 and Up 2015 IMM Influenza Seasonal May to October (>/= 19 yrs) 05/29/2020 Results Not on fileafter 08/20/2019 Insurance Payer Benefit Plan / Subscriber ID Effective Dates Phone Addre ss Type Group [employer] MED[place]ID [place] [id number] 2018-Manjeet [phone] [place] [address] [place] DUAL [id number] 2018-Herbert [phone] MCARE O MEDICARE OPTION MMP nt [id number] OPTIONS [address] [address] [place] [address]
--- OUTSIDE RECORDS SUMMARY | 2020-08-20 00:37 | XMS REPORT | Continuity of Care Document ---
:1950 Author Organization [facility] Information Gore Care Team Providers Name Role Phone [facility] Information Exchange Unavailable Un available Problems Problem Status Onset Classification Date Comments Sourc e Date Reported UPPER ABD PAIN Active 01/20/20 [facility] [place] Chest pain, 01/17/20 01/19/2017 Nakia haskins unspecified [address] [place] [address], [place] CHEST PAIN Active 01/17/20 [place] [address] [place],[facility] Urinary tract 11/29/19 12/01/2016 Franklyn arland infection, site 17 not specified Dorsalgia, 11/29/19 12/01/2016 Diane and unspecified 17 PAIN Active 11/29/19 [place] [address] [place] Bitten or stung by 11/07/19 11/09/2016 [facility] nonvenomous insect 17 and other nonvenomous arthropods, initial encounter FACIAL SWELLING Active 11/07/19 Eleazar rial [place] SYNCOPE Active 10/10/[address] SICK Active 10/10/[address] Discharge 04/14/20 04/17/2016 [facility] Diagnosis: 16 Medical Syncope, near Center CHEST PAIN, Active 03/11/20 [facility] HYPOTENSION 16 [place] SOB Active 03/11/20 [place] [address] [facility] 03/05/20 03/08/[address] [place] Diagnosis: 16 Trichomonas vaginitis Discharge 03/05/20 03/08/2016 [place] Diagnosis: Lumbago 16 Discharge 02/29/20 03/03/2016 [place] Diagnosis: 16 Bronchitis BACK PAIN Active 09/14/19 [facility] 16 [place],[facility] COPD, CHEST PAIN Active 09/03/19 [facility] [place] HEADACHE Active 07/15/20 15 [place] SOB/ WEAKNESS Active 07/04/[address] LOWER BACK AND LEG Active 07/04/20 [place] PAIN [address] [place] [address] SHORTNESS OF Active 06/03/20 BREATH 15 [place] Discharge 05/18/20 05/21/2015 [facility] Diagnosis: 15 Medical Abdominal pain, Cent er acute, epigastric NAUSEA Active 05/18/20 [facility] 15 Medical Center Discharge 05/09/20 05/12/2015 [facility] Diagnosis: Chest 15 Med ical pain Center,[facility] Discharge 05/02/20 05/05/2015 [facility] Diagnosis: Vertigo 15 M edical Center Discharge 05/02/20 05/05/2015 [facility] Diagnosis: Syncope 15 M edical and collapse Center FALL Active 05/02/20 [place] [address] Medical Center Discharge 04/11/20 04/14/2015 Diagnosis: Knee 15 [place] pain, right Discharge 04/11/20 04/14/2015 Diagnosis: Lumbar [facility] 04/11/20 04/14/2015 Diagnosis: 15 [facility] Anterolisthesis Discharge 04/11/20 04/14/2015 Diagnosis: 15 [facility] Accidental fall Discharge 03/30/20 04/02/2015 Diagnosis: Chronic 15 [place] pain in right shoulder NECK AND SHOULDER Active 03/30/20 PAIN 15 [facility] SOB/CHEST PAIN Active 03/21/[address] HYPOTENSION, CHEST Active 03/21/20 H PAIN 15 [facility] Discharge 03/11/20 03/14/2015 Diagnosis: Chest 15 [place] wall muscle strain LOWER BACK PAIN Active 03/11/20 15 [facility] Discharge 03/05/20 03/08/2015 [facility] Diagnosis: Dyspnea 15 M edical Center UPPER BACK PAIN Active 02/25/20 15 [facility] ACUTE CHEST PAIN Active 02/25/20 15 [facility] UNSTABLE ANGINA; Active 02/17/20 HYPOTENSION [place] CHEST/LEG PAIN Active 12/23/[address] OTHER Active 12/17/19 [place] [address] [facility] Center ACS Active 12/17/19 [place] [address] [facility] Center Asthma (disorder) Active Problem 01/22/2017 [facility] [place] [facility], [facility] [place] Cardiac chest pain Active Problem 01/22/2017 [facility] (finding) [facility], [facility] [place], [facility] [place] 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 arterial Center, (disorder) [place], [place]jorie, [facility] [place] Hyperlipidemia Active Problem 01/22/2017 [facility] [place] (disorder) Medical Center,[facility],M H Marjorie, M Tabby Kraig t Myocardial Active Problem 01/22/2017 [facility] infarction Medical (disorder) Center, [place],M H Marjorie, M Tabby Kraig t Smoking cessation Active Problem 01/22/2017 [facility] advice Medical (regime/therapy) Jose ter,[facility],M H Marjorie, M Tabby Edmondsya t Stented coronary Resolved Problem 01/22/2017 [facility] artery (finding) Med ical Center,[facility],M H Marjorie Substance abuse Active Problem 01/22/2017 [facility] (disorder) [facility] Tissue perfusion Active Problem 01/22/2017 [facility] measure [facility] (observable Center,M H entity) [place],M H Marjorie, M Tabby Kraig jb Heart disease Active Problem 12/28/2013 [place] ([place] [facility] CHEST PAIN NOS [place] [facility] INTERMED CORONARY Active [facility] ANGINA DECUBITUS Active [facility] HYPOTENSION NOS Active [facility] SYNCOPE AND Active [facility] COLLAPSE [facility] Medications Medication Details Route Status Patient Ordering Order Source Instructions Provider Date Famotidine 20 mg, Route: Inactive 01/19[facility] IVP, ONCE, 2016 [facility] Dosing Weight 45.455, kg, Priority: STAT, Start date: 01/19/17 13:00:00 CDT, Stop date: 01/19/17 13:00:00 CDT GI cocktail 30 mL, Route: Inactive [facility] PO, Dosing 2016 [facility] Weight 45.455, kg, ONCE, STAT, Start date: 01/19/17 13:00:00 CDT, Stop date: 01/19/17 13:00:00 CDT Ondansetron 4 mg, Route: Inactive 01/19[facility] IVP, ONCE, 2016 [facility] Dosing Weight 45.455, kg, Priority: STAT, Start date: 01/19/17 13:00:00 CDT, Stop date: 01/19/17 13:00:00 CDT Saline Flush 0.9% Notes: (Same Inactive 01/19[facility] as: BD 2016 [facility] Posiflush) Sodium Chloride 1,000 mL, Inactive 0.154 MEQ/ML 2,000 ml/hr, 2016 [facility] ast Injectable Infuse Over: Solution 30 minutes, Route: IV, ONCE, Priority: STAT, Dosing Weight 45.455 kg, Start date: 01/19/17 13:00:00 CDT, Duration: 1 doses or times, Stop date: 01/19/17 13:00:00 CDT clopidogrel Notes: (Same No Longer [place] As: Plavix) Active 2017 [facility] atorvastatin Notes: Same as Inactive [facility] Lipitor 2017 [facility] aspirin 81 mg 81 mg = 1 tab, Active [place] tablet, enteric PO, Daily, # 2017 Med ical coated 90 tab, 3 Center Refill(s), other metoprolol Notes: (Same [place] tartrate as: Lopressor) 2017 Medical 12.5 mg=1/2 X Center 25 mg TAB Meclizine Notes: (Same Inactive [facility] as: Antivert) 2017 [facility] nitrofurantoin 100 mg, PO, Inactive [place] BID, # 14 cap, 2017 Medical 0 Refill(s) Center meclizine 25 mg 25 mg = 1 tab, Active [facility] oral tablet PO, TID, PRN 2017 Medical for dizziness, Center # 60 tab, 0 Refill(s) Morphine Notes: (Same Inactive [facility] as:MORPhine 2017 Medical Sulfate) Center Ondansetron Notes: (Same Inactive [place] as as: Zofran) 2017 Medical MEDICATION Center WASTE Product Size: 4 mg Product Wasted: _0__ mg Aspirin Notes: Take Inactive [facility] with food. 2017 [facility] Saline Flush 0.9% Notes: Same Inactive [facility] as: BD 2017 Medical Posiflush Center [...] Tramadol Notes: Not to Inactive exceed 2017 [place] 400mg/day. (Same As: Ultram) Albuterol 0.833 Notes: (Same Inactive MG/ML / as: Duoneb) 2017 [place] Ipratropium [place] 0.167 MG/ML Inhalant Solution [DuoNeb] Saline Flush 0.9% Notes: Inactive preservative 2017 [place] free. Mupirocin 0.02 1 appl, TOP, Active MG/MG Topical TID, PRN as 2017 [place] Ointment needed, Apply [Bactroban] to affected area(s), X 14 day, # 60 gm, 0 Refill(s) Saline Flush 0.9% Notes: (Same Inactive as: BD 2017 [place] Posiflush) atorvastatin Notes: Same as Inactive [facility] Lipitor [address] [place] [address] Center remove patch Notes: Remove Inactive [place] patch 12 hours 2017 Medical after Center application each day. metoprolol Notes: (Same [place]active [place] tartrate as: Lopressor) 2017 Medical 12.5 mg=1/2 X Center 50 mg TAB heparin sodium, Notes: porcine Inactive [place] porcine 2500 heparin 2017 [facility] UNT/ML Injectable Center Solution Protonix Notes: Tablet Inactive [place] should not be 2017 [facility] chewed or Center crushed. (Same as: Protonix) Symbicort 160/4.5 Notes: (Same Inactive [place] inhalation aerosol as: Symbicort) 2017 Medical with adapter WASTE: Center Aerosol - Return to Pharmacy Aspirin 325 MG Notes: Take Inactive [place] Oral Tablet with food. 2017 [facility] Omeprazole 20 mg, Route: No Longer [place] PO, Drug form: Active 2016 Medical ECTAB, BID, Center Dosing Weight 50, kg, Start date: 10/11/16 9:00:00 SOLE TIER, Duration: 30 day, Stop date: 11/09/16 17:00:00 CDT potassium chloride Notes: (Same Inactive [facility] as: K-Dur 20) 2017 Medical "Do Not Crush" Center With food and full glass of water Nitroglycerin 0.4 Notes: (Same No Longer [facility] MG Sublingual as:Nitroquick, Active 2017 Med [...] as: Tylenol) Docusate Notes: (Same No Longer [facility] as: Colace) Active 2017 Medical (Do Not Crush) Center Morphine Notes: (Same No Longer [facility] as:MORPhine Active 2016 Medical Sulfate) Center Acetaminophen 325 Notes: (Same No Longer [facility] MG / Hydrocodone as: [place] Active 2016 Medic al Bitartrate 5 MG 325/5) Do not C enter Oral Tablet exceed 4gm/day of acetaminophen. Ondansetron Notes: (Same No Longer [place] as: Zofran) Active 2017 Medical MEDICATION Center WASTE Product Size: 4 mg Product Wasted: 0 mg Dilaudid Notes: Same Inactive [facility] as: Dilaudid 2017 Medical [place] potassium chloride Notes: (Same Inactive [facility] as: K-Dur 20) 2017 Medical "Do Not Crush" Center With food and full glass of water Aspirin Notes: Take Inactive [facility] with food. 2017 Medical Center B-3-50 50 mg, Route: No Longer PO, Daily, Active 2016 [place] Dosing Weight 50, kg, Start date: 09/15/16 9:00:00 SOLE TIER, Duration: 30 day, Stop date: 10/14/16 9:00:00 SOLE TIER tramadol 50 mg = 1 tab, Active [place] hydrochloride 50 PO, BID, X 15 2016 M edical MG Oral Tablet day, # 30 tab, Ce nter 0 Refill(s) Acetaminophen 325 Notes: (Same Inactive [place] MG / Hydrocodone as: [place] 2016 Medic al Bitartrate 5 MG 325/5) Do not C enter Oral Tablet [[place] exceed 4gm/day 5/325] of acetaminophen. atorvastatin Notes: (Same Inactive as: Lipitor) 2015 [place] 200 ACTUAT Notes: Same Inactive Albuterol 0.09 as: Ventolin 2015 [place] MG/ACTUAT Metered HFA WASTE: Dose Inhaler Aerosol - [ProAir HFA] Return to Pharmacy Protonix Notes: Tablet Inactive should not be 2015 [place] chewed or crushed. (Same as: Protonix) Symbicort 160/4.5 Notes: (Same Inactive inhalation aerosol as: Symbicort) 2015 [place] with adapter WASTE: Aerosol - Return to Pharmacy Aspirin 81 MG Notes: Take Inactive Chewable Tablet with food. 2016 Diane and Omeprazole 20 mg, Route: Inactive PO, Drug form: 2015 [place] ECTAB, BID, Dosing Weight 50, kg, Start date: 03/12/16 9:00:00 CDT, Duration: 30 day, Stop date: 04/10/16 17:00:00 CDT metoprolol Notes: (Same Inactive tartrate as: Lopressor) 2015 [place] clopidogrel Notes: (Same Inactive As: Plavix) 2015 [place] Aspirin 325 MG Notes: Take Inactive Oral Tablet with food. 2015 [place] tramadol Notes: Not to Inactive hydrochloride 50 exceed 2015 [place] MG Oral Tablet 400mg/day. (Same As: Ultram) Naprosyn Notes: (Same Inactive as: Naprosyn) 2015 [place] Take with food. Lidocaine Notes: (Same Inactive Hydrochloride 0.05 as: Lidoderm) 2015 [place] MG/MG Transdermal Patch [Lidoderm] Aspirin Notes: Take Inactive with food. 2015 [place] Nitroglycerin Notes: (Same No Longer as:Nitroquick, Active 2015 [place] Nitrostat) "Do Not Crush" Sublingual tablet Saline Flush 0.9% Notes: (Same No Longer as: BD Active 2015 [place] Posiflush) Saline Flush 0.9% Notes: (Same No Longer as: BD Active 2015 [place] Posiflush) Sodium Chloride 1,000 mL, Inactive 0.154 [...] 0.9% Notes: (Same Inactive as: BD 2015 [place] Posiflush) Nitroglycerin Notes: (Same Inactive as:Nitroquick, 2015 [place] Nitrostat) "Do Not Crush" Sublingual tablet tramadol [...] Zofran Notes: (Same Inactive as: Zofran 2015 [place] ODT) Acetaminophen 325 Notes: (Same Inactive MG / Hydrocodone as: [place] 2016 Diane and Bitartrate 5 MG 325/5) Do not Oral Tablet [[place] exceed 4gm/day 5/325] of acetaminophen. Flagyl Notes: (Same Inactive as: Flagyl) 2015 [place] Take with food/ avoid alcohol predniSONE 20 [...] (Same Inactive MG/ML / as: Duoneb) 2015 [place] Ipratropium [place] 0.167 MG/ML Inhalant Solution [DuoNeb] Symbicort 160/4.5 2 puff, Active inhalation aerosol INHALATION, 2015 [place] with adapter BID, # 1 ea, 1 Refill(s) predniSONE 10 mg See Special Active oral tablet Instructions, 2015 [facility] PO, Daily, 6 day regimen: Day 1 [...] 1 Active Oral Tablet tab, PO, 2015 [facility] Daily, 0 Refill(s) atorvastatin Notes: (Same No Longer as: Lipitor) Active 2015 [facility] Solu-Medrol Notes: (Same Inactive as:Solu-MEDROL 2015 [facility] , A-Methapred) 24 HR Metoprolol Notes: (Same No Longer Tartrate 25 MG as: Toprol XL) Active 2015 [place] [facility] Extended Release Do Not Crush Tablet [Toprol] clopidogrel Notes: (Same No Longer As: Plavix) Active 2015 [facility] Protonix Notes: Tablet No Longer should not be Active 2015 [facility] chewed or crushed. (Same as: Protonix) Aspirin 325 MG Notes: Take No Longer Oral Tablet with food. Active 2015 [facility] Omeprazole 20 mg, Route: Inactive PO, Drug form: 2015 [facility] ECTAB, BID, Dosing Weight 50.92, kg, Start date: 09/04/15 9:00:00, Duration: 30 day, Stop date: 10/03/15 17:00:00 Acetaminophen 300 Notes: Do not No Longer MG / Codeine exceed 4gm/day Active 2015 [place] Phosphate 30 MG of Oral Tablet acetaminophen. [Tylenol with (Same as: Codeine #3] Tylenol with Codeine # 3) NS 1,000 mL 1,000 mL, No Longer Rate: 75 Active 2015 [facility] ml/hr, Infuse over: 13.3 hr, Route: IV, Dosing Weight 50.92 kg, Total Volume: 1,000, Start date: 09/04/15 8:03:00, Duration: 30 day, Stop date: 10/04/15 8:02:00 Albuterol 0.833 Notes: (Same No Longer H MG/ML / as: Duoneb) Active 2015 [facility] Ipratropium [place] 0.167 MG/ML Inhalant Solution methylPREDNISolone Notes: (Same No Longer SODium SUCCinate as:Solu-MEDROL Active 2015 [facility] , A-Methapred) methylPREDNISolone Notes: (Same Inactive [place] SUCCinate as:Solu-MEDROL 2015 [facility] , A-Methapred) Albuterol 0.833 Notes: (Same Inactive MG/ML / as: Duoneb) 2015 [facility] Ipratropium [place] 0.167 MG/ML Inhalant Solution Saline Flush 0.9% Notes: (Same No Longer as: BD Active 2015 [facility] Posiflush) atorvastatin Notes: (Same Inactive as: Lipitor) 2014 [facility] metoprolol 12.5 mg = 0.5 Active tartrate 25 mg tab, PO, BID, 2014 [place] oral tablet # 60 tab, 0 Refill(s) clopidogrel 75 mg 75 mg = 1 tab, Active oral tablet PO, Daily, # [address] [facility] [address] 30 tab, 1 Refill(s) atorvastatin 40 mg 80 mg = 2 tab, Active oral tablet PO, Bedtime, # 2015 [facility] 60 tab, 1 Refill(s) 200 ACTUAT 90 microgram = Active Albuterol 0.09 1 puff, 2014 [facility] MG/ACTUAT Metered INHALATION, Dose Inhaler Q4H, PRN for wheezing, # 1 ea, 0 Refill(s) omeprazole 20 mg 20 mg = 1 tab, Active oral enteric PO, BID, # 60 2014 [facility] coated tablet tab, 1 Refill(s) metoprolol Notes: (Same Inactive tartrate as: Lopressor) 2014 [facility] t clopidogrel Notes: (Same Inactive As: Plavix) 2014 [facility] Protonix Notes: Tablet Inactive should not be 2014 [facility] chewed or crushed. (Same as: Protonix) Albuterol 0.833 Notes: (Same No Longer H MG/ML / as: Duoneb) Active 2014 [facility] Ipratropium [place] 0.167 MG/ML Inhalant Solution Sodium Chloride 250 mL, Route: No Longer 0.9% IV IVPB, Start Active 2014 [facility] date: 07/15/15 21:26:00, Duration: 30 day, Stop date: 08/14/15 21:25:00, PRN Line Flush BD Normal Saline Notes: (Same No Longer Flush as: BD Active 2014 [facility] Posiflush) Nitroglycerin Notes: (Same No Longer as:Nitroquick, Active 2014 [facility] Nitrostat) "Do Not Crush" Sublingual tablet Ibuprofen Notes: (Same No Longer as: Motrin) Active 2014 [facility] "Do Not Crush" Give with food. Baclofen Notes: (Same No Longer As: Lioresal) Active 2014 [facility] 200 ACTUAT Notes: No Longer Albuterol 0.09 Al[facility]erol 90 [facility] Metered microgram/inh Dose Inhaler 8gm HFA Same as: Ventolin Proventil Sodium Chloride 1,000 mL, No Longer 0.0769 MEQ/ML Rate: 125 Active 2014 [place] Injectable ml/hr, Infuse Solution over: 8 hr, Route: IV, Dosing Weight 50 kg, Total Volume: 1,000, Start date: 07/15/15 20:39:00, Duration: 30 day, Stop date: 08/14/15 20:38:00 Saline Flush 0.9% Notes: (Same Inactive as: BD 2014 [facility] Posiflush) Aspirin 324 mg, Route: Inactive PO, ONCE, 2014 [facility] Dosing Weight 50, kg, Priority: STAT, Start date: 07/15/15 14:15:00, Stop date: 07/15/15 14:15:00 Saline Flush 0.9% Notes: (Same Inactive as: BD 2014 [facility] Posiflush) Sodium Chloride 500 mL, 500 Inactive [...] [place] oral tablet PO, TID, PRN 2015 [facility] for dizziness, Center X 20 day, # 60 tab, 0 Refill(s) Acetaminophen Notes: (Same Inactive [place] as: Tylenol) 2015 [facility] Antivert Notes: (Same Inactive [facility] as: Antivert) [address] [place] [address] baclofen 10 mg 10 mg = 1 tab, Active oral tablet PO, TID, PRN [address] [facility] [address] Spasms, # 21 tab, 0 Refill(s) Acetaminophen 300 1 tab, PO, Active MG / Codeine Q6H, PRN pain, 2015 [place] Phosphate 60 MG X 5 day, # 20 Oral Tablet tab, 0 [Tylenol with Refill(s) Codeine #4] Acetaminophen 325 Notes: Same as Inactive MG / Hydrocodone [place] [address] [facility] [address] Bitartrate 7.5 MG 325-7.5mg Do Oral Tablet [[place] not exceed 7.5/325] 4gm/day of acetaminophen. ibuprofen 800 mg Special Active oral tablet Instructions: 2014 [facility] est Take with food Ibuprofen 400 MG Notes: (Same Inactive H Oral Tablet as: Motrin) 2014 [facility] "Do Not Crush" Give with food. cyclobenzaprine Notes: (Same Inactive As: Flexeril) 2014 [facility] Readi-Cat 2 Notes: Same as No Longer Readi-Cat 2 Active 2014 [facility] lactulose Notes: (Same No Longer as:Chronulac) Active 2014 [facility] atorvastatin Notes: (Same No Longer As: Lipitor) Active 2014 [facility] Motrin Notes: (Same No Longer as: Motrin) Active 2014 [facility] "Do Not Crush" Take with food. Omeprazole 20 mg, Route: Inactive PO, Drug form: 2014 [facility] ECTAB, BID, Dosing Weight 53, kg, Start [...] tartrate 25 mg tab, PO, BID, [facility] # [facility] tab, 0 Refill(s) clopidogrel 75 mg 75 mg = 1 tab, Active oral tablet PO, Daily, # [address] [facility] [address] 30 tab, 0 Refill(s) omeprazole 20 mg 20 mg = 1 tab, Active oral enteric PO, BID, # 60 2014 [facility] coated tablet tab, 0 Refill(s) atorvastatin 40 mg 80 mg = 2 tab, Active oral tablet PO, Bedtime, # 2014 [facility] 90 tab, 0 Refill(s) 200 ACTUAT 1 puff, Active Albuterol 0.09 INHALATION, 2014 [facility] MG/ACTUAT Metered Q4H, PRN for Dose Inhaler wheezing, # 9 gm, 0 Refill(s) Ondansetron Notes: (Same No Longer as: Zofran) Active 2014 MEDICATION WASTE Product Size: 4 mg Product Wasted: ___ mg Docusate Notes: (Same No Longer as: Colace) Active 2014 (Do Not Crush) Acetaminophen Notes: Do not No Longer exceed 4 Active 2014 [facility] gm/day. (Same as: Tylenol) Budesonide 0.25 Notes: (Same No Longer H MG/ML Inhalant As: Pulmicort) Active 2014 Solution [Pulmicort] Albuterol 0.833 Notes: (Same No Longer H MG/ML / as: Duoneb) Active 2014 Ipratropium [place] 0.167 MG/ML Inhalant Solution [DuoNeb] Potassium Chloride Notes: (Same Inactive 1.33 MEQ/ML Oral as: Potassium 2015 [place] Solution Chloride) Sodium Chloride 1,000 mL, Inactive 0.154 MEQ/ML 1,000 ml/hr, 2014 [facility] Injectable Infuse Over: 1 Solution hr, Route: IV, ONCE, Priority: STAT, Dosing Weight 50 kg, Start date: 03/21/15 17:23:00, Duration: 1 doses or times, Stop date: 03/21/15 17:23:00 Sodium Chloride 1,000 mL, Inactive 0.154 MEQ/ML 1,000 ml/hr, 2014 [facility] Injectable Infuse Over: 1 Solution hr, Route: IV, 1,000, Drug form: INJ, ONCE, Priority: STAT, Dosing Weight 50 kg, Start date: 03/21/15 16:12:00, Duration: 1 doses or times, Stop date: 03/21/15 16:12:00 Ondansetron Notes: (Same Inactive as: Zofran) 2014 [facility] MEDICATION WASTE Product Size: 4 mg Product Wasted: ___ mg Morphine Notes: (Same Inactive as:MORPhine 2014 [facility] Sulfate) Aspirin Notes: Take Inactive with food. 2014 Saline Flush 0.9% Notes: (Same No Longer as: BD Active 2014 [facility] Posiflush) tramadol 50 mg = 1 tab, No Longer hydrochloride 50 PO, Q4H, PRN Active 2014 [facility] [place] Oral Tablet pain, # 20 [Ultram] tab, 0 Refill(s) Aspirin Notes: Take Inactive with food. 2014 [facility] Morphine Notes: (Same Inactive as:MORPhine 2014 [facility] Sulfate) Ondansetron Notes: (Same Inactive as: Zofran) 2014 [facility] MEDICATION WASTE Product Size: 4 mg Product Wasted: ___ mg Saline Flush 0.9% Notes: (Same Inactive as: BD 2014 [facility] Posiflush) Famotidine 20 MG 20 mg, 1 tab, Inactive [place] Oral Tablet Route: PO, 2015 Medical [Pepcid] BID, Dosing Center Weight 50, kg, Start date: 03/05/15 9:00:00, Duration: 30 day, Stop date: 04/03/15 17:00:00 MDI Inhaler Spacer Special Active [place] Instructions: 2015 Medical Use as Center directed 200 ACTUAT 1 puff, Active [facility] Albuterol 0.09 INHALATION, 2014 Medic al MG/ACTUAT Metered Q4H, PRN for C enter Dose Inhaler wheezing, # 9 gm, 0 Refill(s) Iohexol Notes: (same Inactive [facility] as:Omnipaque [facility] 350). [place] Famotidine 20 MG 20 mg, 1 tab, Inactive [facility] Oral Tablet Route: PO, 2015 [facility] [Pepcid] ONCE, Dosing [place] Weight 50, kg, Start date: 03/05/15 2:18:00, Stop date: 03/05/15 2:18:00 GI cocktail 30 mL, Route: Inactive [place] PO, Dosing 2014 [facility] Weight 50, kg, Center ONCE, STAT, Start date: 03/05/15 2:16:00, Stop date: 03/05/15 2:16:00 Aspirin Notes: Take Inactive [place] with food. 2014 [facility] remove patch Notes: Remove No Longer old patch Active 2014 [facility] before application of new patch. Plavix Notes: (Same Inactive As: Plavix) 2014 [facility] Omeprazole 20 mg, Route: No Longer PO, Drug form: Active 2014 [facility] ECTAB, BID, Dosing Weight 50, kg, Start date: 02/25/15 9:00:00, Duration: 30 day, Stop date: 03/26/15 17:00:00 Nicoderm C-Q Notes: (Same Inactive as: Habitrol) 2014 [facility] "Remove old patch before application of new patch" Aspirin Notes: Take No Longer with food. Active 2014 [facility] 24 HR Nicotine = 1 patch, Active 0.875 MG/HR TOP, Daily, X 2014 [facility] est Transdermal Patch 14 day, # 14 [Nicoderm C-Q] patch, 0 Refill(s) atorvastatin 20 mg 40 mg = 2 tab, Active oral tablet PO, Bedtime, # 2014 [place] 60 tab, 0 Refill(s) omeprazole 20 mg 20 mg = 1 tab, Active oral enteric PO, BID, # 30 2014 [facility] coated tablet tab, 0 Refill(s) [...] No Longer Flush as: BD Active 2014 [facility] Posiflush) potassium chloride Notes: Infuse Inactive at a rate of 2014 10 mEq/hr. (Same as: KCL) metoprolol Notes: (Same No Longer tartrate as: Lopressor) Active 2014 [facility] cyclobenzaprine Notes: (Same No Longer 02/25/ H As: Flexeril) Active 2014 [facility] Notes: (Same No Longer as:MORPhine Active 2014 [facility] Sulfate) Ondansetron Notes: (Same No Longer as: Zofran) Active 2014 MEDICATION WASTE Product Size: 4 mg Product Wasted: ___ mg Acetaminophen Notes: Do not No Longer exceed 4 Active 2014 [facility] gm/day. (Same as: Tylenol) Aspirin Notes: Take Inactive with food. 2014 potassium chloride 40 mEq, Route: Inactive 02/24 PO, Drug form: 2014 [facility] ERTAB, ONCE, Dosing Weight 50, kg, Priority: STAT, Start date: 02/24/15 14:49:00, Stop date: 02/24/15 14:49:00 Morphine Notes: (Same Inactive as:MORPhine 2014 [facility] Sulfate) remove patch Notes: Remove Inactive old patch 2014 [facility] before application of new patch. Plavix Notes: (Same Inactive As: Plavix) 2014 [facility] atorvastatin Notes: (Same No Longer As: Lipitor) Active 2014 [facility] Pravastatin Notes: (Same Inactive as: Pravachol) 2014 [facility] Protonix Notes: Tablet No Longer should not be Active 2014 [facility] chewed or crushed. (Same as: Protonix) NS 1,000 mL 1,000 mL, No Longer Rate: 100 Active 2014 [facility] ml/hr, Infuse over: 10 hr, Route: IV, Dosing Weight 51.051 kg, Total Volume: 1,000, Start date: 02/17/15 16:51:00, Duration: 30 day, Stop date: 03/19/15 16:50:00 Sodium Chloride IV, 0 ml/hr, Inactive 0.9% IV ONCE, Start 2014 [facility] date: 02/17/15 16:45:00, 500 ml metoprolol 12.5 mg = 0.5 Active tartrate 25 mg tab, PO, BID, 2014 [place] oral tablet 0 Refill(s) naproxen 500 mg 500 mg = 1 Inactive oral tablet tab, PO, BID, 2014 [facility] PRN Pain, # 30 tab, 0 Refill(s) Aspirin Low Dose 0 Refill(s) Inactive 81 mg oral tablet 2014 [facility] est cyclobenzaprine 10 10 mg = 1 tab, Active mg oral tablet PO, TID, PRN 2014 [place] for spasms, # 30 tab, 0 Refill(s) atorvastatin 20 mg 20 mg = 1 tab, Inactive 02/17 oral tablet PO, Bedtime, # 2015 [facility] 30 tab, 0 Refill(s) omeprazole 20 mg 20 mg = 1 tab, Active oral enteric PO, BID, # 30 2014 [facility] coated tablet tab, 0 Refill(s) 24 HR Nicotine = 1 patch, Active 0.875 MG/HR TOP, Daily, X 2015 [facility] est Transdermal Patch 14 day, # 14 [Nicoderm C-Q] patch, 0 Refill(s) atorvastatin 20 mg 40 mg = 2 tab, Active oral tablet PO, Bedtime, # 2015 [facility] 60 tab, 0 Refill(s) Nicotine Notes: (Same No Longer as: Habitrol) Active 2014 [facility] "Remove old patch before application of new patch" Aspirin 81 MG Notes: Do not Inactive Enteric Coated crush or chew. 2015 [facility] Tablet (Same As: Ecotrin) Sodium Chloride 1,000 mL, Inactive 0.154 MEQ/ML Rate: 125 2014 [facility] Injectable ml/hr, Infuse Solution over: 8 hr, [...] Active Oral Tablet PO, Daily, # [address] [facility] [address] [Plavix] 30 tab, 0 Refill(s) Enoxaparin Notes: Nurse No Longer to ensure Active 2014 [facility] documentation of patient education per anticoagulatio n policy. (Same as: Lovenox) Jason Krause Notes: (Same No Longer 22/ M H As: Rosannasalon Active 2014 [facility] Nelida) "Do Not Crush" Acetaminophen Notes: Do not No Longer exceed 4 Active 2014 [facility] gm/day. (Same as: Tylenol) Diphenhydramine Notes: (Same No Longer 02/17/ H as: Benadryl) Active 2014 [facility] Dextromethorphan Notes: No Longer Hydrobromide 2 (dextromethorp Active 2014 [facility] MG/ML / hernández-guaifenesi Guaifenesin 20 n 10-100mg/5ml MG/ML Oral 10 ml oral Solution SOLN ud) (Same as: Robitussin DM) Simethicone Notes: (Same No Longer as: Mylicon) Active 2014 [facility] Bisacodyl Notes: (Same No Longer As: Dulcolax, Active 2014 [facility] Bisco-Lax) Ondansetron Notes: (Same No Longer as: Zofran) Active 2014 [facility] MEDICATION WASTE Product Size: 4 mg Product Wasted: ___ mg Nitroglycerin 0.02 Notes: 1 gram No Longer 02/17 MG/MG Topical is Active 2014 [facility] Ointment approximately 1 inch of nitroglycerin ointment (20 mg NTG per gram) (Same as:Nitro-Bid) Nitroglycerin Notes: (Same No Longer as:Nitroquick, Active 2014 [facility] Nitrostat) "Do Not Crush" Sublingual tablet Acetaminophen Notes: Do not No Longer exceed 4 Active 2014 [facility] gm/day. (Same as: Tylenol) Acetaminophen 325 Notes: (Same No Longer MG / Hydrocodone as: [place] Active 2014 [facility] Bitartrate 5 MG 325/5) Do not Oral Tablet exceed 4gm/day of acetaminophen. Morphine Notes: (Same No Longer as:MORPhine Active 2014 [facility] Sulfate) Sodium Chloride 1,000 mL, No Longer 0.154 MEQ/ML Rate: 125 Active 2014 [facility] Injectable ml/hr, Infuse Solution over: 8 hr, Route: IV, Dosing Weight 52.273 kg, Total Volume: 1,000, Start date: 02/16/15 21:06:00, Duration: 24 hr, Stop date: 02/17/15 21:05:00 normal saline 0.9% 500 mL, Rate: Inactive IV 500 mL 500 ml/hr, 2014 [facility] Infuse over: 1 hr, Route: IV, Dosing Weight 52.273 kg, Total Volume: 500, Start date: 02/16/15 20:25:00, Duration: 1 doses or times, Stop date: 02/16/15 21:24:00 Sodium Chloride 250 mL, Route: No Longer 0.9% IV IVPB, Start Active 2014 [facility] date: 02/16/15 19:52:00, Duration: 30 day, Stop date: 03/18/15 19:51:00, PRN Line Flush BD Normal Saline Notes: (Same No Longer Flush as: BD Active 2014 [facility] Posiflush) Morphine Notes: (Same Inactive as:MORPhine 2014 [facility] Sulfate) Nitroglycerin Notes: (Same Inactive as:Nitroquick, 2014 [facility] Nitrostat) "Do Not Crush" Sublingual tablet Aspirin Notes: (Do Not Inactive Crush) Do not 2014 [facility] crush or chew. Ondansetron Notes: (Same Inactive as: Zofran) 2013 [facility] Morphine Notes: (Same Inactive as:MORPhine 2013 [facility] Sulfate) Aspirin / Calcium Notes: Take Inactive H Carbonate with food. 2013 [facility] Aspirin 81 MG 81 mg = 1 tab, Active [facility] Enteric Coated PO, Daily, # 2014 Medi tony Tablet 90 tab, 0 Center Refill(s) metoprolol 12.5 mg = 0.5 Active [facility] s tartrate 25 mg tab, PO, BID, 2013 Med ical oral tablet # 90 tab, 0 Center Refill(s) clopidogrel 75 mg 75 mg = 1 tab, Active [facility] oral tablet PO, Daily, # 2014 Medical 90 tab, 0 Center Refill(s) atorvastatin 20 mg 20 mg = 1 tab, Active 12/17[facility] oral tablet PO, Bedtime, # 2014 Medic al 90 tab, 0 Center Refill(s) metoprolol Notes: (Same [place]active [place] tartrate as: Lopressor) 2013 Medical 12.5mg=1/4 X Center 50 mg tab. Lovenox Notes: (Same Inactive [facility] as: Lovenox) 2013 [facility] Center clopidogrel Notes: (Same Inactive [place] as As: Plavix) 2013 [facility] Aspirin / Calcium Notes: Do not Inactive [place] Carbonate crush or chew. 2013 Medical (Same [...] Posiflush) Center Nitroglycerin Notes: (Same No Longer [facility] as:Nitroquick, Active 2013 Medical Nitrostat) "Do Center Not Crush" Sublingual tablet atorvastatin 20 mg 20 mg = 1 tab, No Longer 11/28 [place] oral tablet PO, Bedtime, # Active 2013 Medic al 30 tab, 0 Center Refill(s) clopidogrel 75 mg 75 mg = 1 tab, No Longer 12/17 [place] oral tablet PO, Daily, 0 Active 2013 [...] Stop date: 12/16/13 18:43:00 Iohexol Special Inactive [facility] Instructions: 2014 Medical Dose = Center [...] Aspirin / Calcium Notes: (Do Not Inactive [facility] Carbonate Crush) Do not 2013 Medical crush or chew. [place] Aspirin 81 MG 81 mg, 1 tab, No Longer [place] Chewable Tablet Route: PO, Active 2013 Medic al Drug form: [place] CHEWTAB, Daily, Dosing Weight 63.636, kg, Start [...] MG 75 mg = 1 tab, Active [facility] Oral Tablet PO, Daily, # 2014 Medical [Plavix] 30 tab, 0 Center Refill(s) atorvastatin 20 mg 20 mg = 1 tab, Active [facility] oral tablet PO, Bedtime, # 2014 Medic al 30 tab, 0 Center Refill(s) Aspirin 81 MG 81 mg = 1 tab, Active [facility] Chewable Tablet PO, Daily, # 2014 Med ical 60 tab, 0 Center Refill(s) Plavix 75 mg, 1 tab, Inactive [facility] Route: PO, 2013 Medical Drug form: Center TAB, Daily, Dosing Weight 63.636, kg, Start date: 11/08/13 9:00:00, Duration: 30 day, Stop date: 12/07/13 9:00:00(Same As: Plavix) Saline Flush 0.9% 5 ml, Route: [facility] Medical Form: INJ, [place] Dosing Weight 63.636, kg, Q12H, Start date: 11/08/13 9:00:00, Duration: 30 day, Stop date: 12/07/13 21:00:00(Same as: BD Posiflush) Lovenox 40 mg, 0.4 mL, Inactive [facility] Route: SUB-Q, 2013 Medical Drug form: [place] INJ, Q24H, Dosing Weight 63.636, kg, Start date: 11/08/13 9:00:00, Duration: 30 day, Stop date: 12/07/13 9:00:00(Same as: Lovenox) Tylenol 650 mg, 2 tab, Inactive [facility] Route: PO, 2013 Medical Drug form: [place] TAB, Q4H, Dosing Weight 63.636, kg, PRN Pain, Start date: 11/08/13 8:15:00, Duration: 30 day, Stop date: 12/08/13 8:14:00Do not exceed 4 gm/day. (Same as: Tylenol) Saline Flush 0.9% 5 ml, Route: Inactive [facility] Medical Form: INJ, Center Dosing [...] Aspirin 81 MG 324 mg, Route: Inactive [facility] Chewable Tablet PO, Drug form: 2013 [...] deltoid Medical vaccine Center, Jacek Solo [facility], [facility] Results Order Name Results Value Reference Date Interpretation Comments Sandra rce [place] URINE AND UA Color Ltyellow 01/19 STOOL /2016 [facility] URINE AND UA <=1.0 0.1 - 1.0 01/19 STOOL Urobilinogen mg/dL [facility] URINE AND UA Ketones Negative [...] Negative Negative 01/19 STOOL (01/19/17 2:21 PM) [facility] ast URINE AND UA RBC 1 0 - 2 01/19 STOOL /2016 [facility] URINE AND UA WBC 1 0 - 5 01/19 STOOL /2016 [facility] URINE AND UA Sq Epi Few /LPF Few /LPF 01/19 STOOL [facility] URINE AND UA pH 7.0 5.0 - 8.0 01/19 STOOL [facility] URINE AND UA Spec Grav 1.008 <=1.030 01/19 STOOL /2016 [facility] URINE AND UA Turbidity Clear Clear 01/19 STOOL (01/19/17 2:21 PM) [facility] ast CARDIAC CK MB 3.0 0.5 - 3.6 01/19 ENZYMES /2016 [facility] CARDIAC Troponin-I <0.02 0.00 - 01/19 EN[facility]YMES 0.40 [facility] CHEM PANEL Lipase Lvl 231 73 - 393 01/19 [facility] CHEM PANEL B/C Ratio 9 6 - 25 01/19 [place] CHEM PANEL AGAP 8.4 10.0 - 01/19 MH 20.0 /2017 [facility] CHEM PANEL A/G Ratio 1.0 [...] Phos 111 39 - 136 01/19 [facility] CHEM PANEL AST 31 0 - 37 01/19 [facility] CHEM PANEL eGFR 90 01/19 Result Comment: The [facility] eGFR is calculated using the [...] Lvl 73 70 - 99 01/19 [facility] CHEM PANEL Amylase Lvl 75 25 - 115 01/19 [facility] HEMATOLOGY PTT 31.3 22.9 - 01/19 MH 35.8 /2017 [facility] HEMATOLOGY MPV 8.5 7.4 - 10.4 01/19 [facility] HEMATOLOGY Hct 42.0 36.0 - 01/19 MH 48.0 /2016 [facility] HEMATOLOGY RBC 4.92 4.20 - 01/19 MH 5.40 /2017 [facility] HEMATOLOGY Hgb 14.4 12.0 - 01/19 MH 16.0 [facility] HEMATOLOGY RDW 14.2 11.5 - 01/19 MH 14.5 /2016 [facility] HEMATOLOGY Platelet 236 133 - 450 05 /2016 [facility] HEMATOLOGY MCHC 34.2 32.0 - 01/19 MH 36.0 /2017 [facility] HEMATOLOGY MCH 29.2 27.0 - 01/19 MH 31.0 /2016 [facility] HEMATOLOGY MCV 85.5 80.0 - 01/19 MH 98.0 /2016 [facility] HEMATOLOGY WBC 7.7 3.7 - 10.4 01/19 /2016 [facility] HEMATOLOGY PT 13.7 12.0 - 01/19 MH 14.7 /2016 [facility] HEMATOLOGY INR 1.03 0.85 - 01/19 MH 1.17 /2016 [place] HEMATOLOGY Eosinophils 0.3 0.0 - 0.5 05 MH # /2017 [place] HEMATOLOGY Segs 68.3 45.0 - 01/19 MH 75.0 /2017 [facility] HEMATOLOGY Monocytes # 0.6 0.0 - 0.8 01/19 MH /2016 [facility] HEMATOLOGY Segs-Bands # 5.3 1.5 [...] 01/17 MH [place] STOOL (01/16/17 7:23 PM) [facility] URINE AND UA Nitrite Negative Negative 01/17 [facility] (01/16/17 7:23 PM) [facility] URINE AND UA Leuk Est Negative Negative 01/17 [facility] (01/16/17 7:23 PM) [facility] URINE AND UA 1.0 0.1 - 1.0 01/17 [facility] Urobilinogen /2016 [facility] URINE AND UA Blood Negative Negative 01/17 [facility] (01/16/17 7:23 PM) /2016 [facility] URINE AND UA Turbidity Slight Cloudy Clear 01/17 [facility] (01/16/17 7:23 PM) [facility] URINE AND UA Spec Grav 1.007 <=1.030 01/17 [facility] URINE AND UA pH 6.0 5.0 - 8.0 01/17 [facility] URINE AND UA Protein Negative Negative 01/17 [facility] (01/16/17 7:23 PM) [facility] URINE AND UA Color Yellow Yellow 01/17 [facility] *NA* /2016 [facility] (01/16/17 7:23 PM) [place] URINE AND UA RBC 0-2 /HPF 0 - 2 01/17 [facility] URINE AND UA Bacteria Few /HPF None Seen 01/[facility] /HPF [facility] URINE AND UA WBC 0-2 /HPF None Seen 01/17 [facility] /HPF /2016 [facility] URINE AND UA Sq Epi Few /LPF Few /LPF 01/17 [facility] [address] [place] [address] CARDIAC Troponin-I <0.02 0.00 - 01/16 [facility] ENZYMES 0.40 [facility] CARDIAC CK MB 2.0 0.5 - 3.6 01/16 [facility] ENZYMES [facility] CARDIAC Total CK 208 12 - 191 01/16 [facility] ENZYMES [facility] CARDIAC CK MB Index 1.0 0.0 - 2.5 01/16 [facility] ENZYMES [address] CHEM PANEL eGFR 73 01/16 Result [...] PANEL CO2 29 24 - 32 01/[address] CHEM PANEL Sodium Lvl 142 135 - 145 01/[address] CHEM PANEL Glucose Lvl 105 70 - 99 01/[address] CHEM PANEL BUN 15 7 - 22 01/[address] CHEM PANEL AGAP 11.0 10.0 - 01/16 [facility] 20.0 [facility] CHEM PANEL B/C Ratio 16 6 - 25 01/[address] CHEM PANEL Calcium Lvl 9.4 8.5 - 10.5 01/16 [facility] CHEM PANEL Creatinine 0.94 0.50 - 01/16 [facility] 1.[facility] CHEM PANEL Chloride Lvl 106 95 - 109 01/16 [facility] 2016 [facility] CHEM PANEL Potassium 4.0 3.5 - 5.1 01/16 [facility] CHEM PANEL Albumin Lvl 3.6 3.5 - 5.0 01/16 [facility] CHEM PANEL ALT 24 0 - 65 01/[address] CHEM PANEL Bili Total 0.6 0.2 - 1.3 01/[address] CHEM PANEL Alk Phos 107 39 - 136 01/[address] CHEM PANEL AST 29 0 - 37 01/[address] CHEM PANEL A/G Ratio 0.9 0.7 - 1.6 01/[address] CHEM PANEL Globulin 3.9 2.7 - 4.2 01/[address] CHEM PANEL Total 7.5 6.4 - 8.4 01/16 Protein [facility] HEMATOLOGY Hgb 14.6 12.0 - 01/16 [place] 16.0 [facility] HEMATOLOGY Hct 42.7 36.0 - 01/16 [place] 48.0 [facility] HEMATOLOGY MCHC 34.2 32.0 - 01/16 [place] 36.0 [facility] HEMATOLOGY MCV 85.3 80.0 - 01/16 [place] 98.0 [facility] HEMATOLOGY MCH 29.2 27.0 - 01/16 [place] 31.0 [facility] HEMATOLOGY RDW 14.3 11.5 - 01/16 [place] 14.5 [facility] HEMATOLOGY Platelet 227 133 - 450 01/16 [facility] HEMATOLOGY MPV 8.0 7.4 - 10.4 01/16 [facility] HEMATOLOGY WBC 6.6 3.7 - 10.4 01/16 [facility] HEMATOLOGY RBC 5.00 4.20 - 01/16 [place] 5.40 [facility] HEMATOLOGY Basophils 0.8 0.0 - 1.0 01/16 [facility] HEMATOLOGY Segs-Bands # 4.0 1.5 - 8.1 01/16 [facility] HEMATOLOGY Monocytes # 0.5 0.0 - 0.8 01/16 [place] [facility] HEMATOLOGY Basophils # 0.1 0.0 - 0.2 01/16 s [facility] HEMATOLOGY Lymphocytes 1.8 1.0 - 5.5 01/16 [place] [facility] HEMATOLOGY Eosinophils 0.2 0.0 - 0.5 01/16 [place] [facility] HEMATOLOGY Segs 60.6 45.0 - 01/16 [place] 75.0 [facility] HEMATOLOGY Monocytes 8.3 2.0 - 12.0 01/16 [facility] HEMATOLOGY Eosinophils 3.5 0.0 - 4.0 01/16 [place] [facility] HEMATOLOGY Lymphocytes 26.8 20.0 - 01/16 [place] 40.0 [facility] URINE AND UA Ketones Negative Negative 11/29 STOOL *NA* /2016 [place] (11/28/16 9:18 PM) URINE AND UA Blood Negative Negative 11/29 STO[place] (11/28/16 9:18 PM) [place] URINE AND UA 1.0 0.1 - 1.0 11/29 STOOL Urobilinogen /2016 [place] URINE AND UA Nitrite Negative Negative 11/29 STO[facility] (11/28/16 9:18 PM) [place] URINE AND UA WBC 6-10 /HPF None Seen 11/29 STOOL /HPF /2016 [place] URINE AND UA RBC 0-2 /HPF 0 - 2 11/29 STOOL /2016 [facility] URINE AND UA Bili Negative Negative 11/29 STOOL *NA* /2016 [facility] (11/28/16 9:18 PM) URINE AND UA Bacteria Occasional None Seen 11/29 STOOL /HPF /HPF /2016 [facility] URINE AND UA Sq Epi Occasional Few /LPF 11/29 Result STOOL /LPF /2016 Comment: [place] microscopic exam performed on UNSPUN Urine due to specimen less than 1ml. URINE AND UA Leuk Est Moderate Negative 11/29 STOOL *ABN* [place] (11/28/16 9:18 PM) URINE AND UA Color Yellow Yellow 11/29 STOOL *NA* [facility] (11/28/16 9:18 PM) URINE AND UA pH 6.0 5.0 - 8.0 11/29 STOOL /2016 [place] URINE AND UA Protein Negative Negative 11/29 STOOL (11/28/16 9:18 PM) [place] URINE AND UA Glucose Negative Negative 11/29 STOOL (11/28/16 9:18 PM) [place] URINE AND UA Spec Grav <=1.005 <=1.030 11/29 STOOL *NA* [place] (11/28/16 9:18 PM) URINE AND UA Turbidity Clear Clear 11/29 STOOL (11/28/16 9:18 PM) [place] CARDIAC Troponin-I <0.02 0.00 - 11/29 EN[place]YMES 0.40 [place] CARDIAC CK MB 1.3 0.5 - 3.6 11/29 ENZYMES [place] CARDIAC Total CK 89 12 - 191 11/29 ENZYMES [place] CARDIAC CK-MB INDEX 1.5 0.0 - 2.5 11/29 ENZYMES [place] CHEM PANEL Globulin 3.9 2.7 - 4.2 11/29 [facility] CHEM PANEL eGFR 50 / Result Comment: The [place] eGFR is calculated using the CKD-EPI formula. [...] A/G Ratio 0.9 0.7 - 1.6 11/29 [place] CHEM PANEL ALANINE 24 0 - 65 / MH AMINOTRANSFE [place] [facility] CHEM PANEL Albumin Lvl 3.7 3.5 - 5.0 11/29 [place] CHEM PANEL Alk Phos 89 39 - 136 / [facility] CHEM PANEL Glucose Lvl 112 70 - 99 11/29 [facility] CHEM PANEL BUN 10 7 - 22 / [facility] CHEM PANEL Creatinine 1.28 0.50 - 04/ MH Lvl 1.40 [place] CHEM PANEL CO2 30 24 - 32 / [place] CHEM PANEL Chloride Lvl 103 95 - 109 / [place] CHEM PANEL Calcium Lvl 9.5 8.5 - 10.5 / [place] CHEM PANEL AGAP 9.5 10.0 - 04/ MH 20.0 /2017 [place] CHEM PANEL B/C Ratio 8 6 - 25 / [place] CHEM PANEL Bili Total 0.7 0.2 - 1.3 / [place] CHEM PANEL Sodium Lvl 139 135 - 145 / [place] CHEM PANEL Potassium 3.5 3.5 - 5.1 04/03 MH Lvl /2016 [place] CHEM PANEL Total 7.6 6.4 - 8.4 04/ MH Protein /2016 [place] CHEM PANEL ASPARTATE 14 0 - 37 04/ MH TRANSAMINASE /2016 [place] HEMATOLOGY MCHC 33.4 32.0 - 04/ MH 36.0 /2016 [place] HEMATOLOGY Platelet 261 133 - 450 04/ /2016 [place] HEMATOLOGY RDW 14.7 11.5 - 04/ MH 14.5 /2016 [place] HEMATOLOGY MPV 8.1 7.4 - 10.4 04/ MH /2016 [place] HEMATOLOGY RBC X 10x6 5.34 4.20 - 04/ MH 5.40 /2016 [place] HEMATOLOGY Hgb 15.5 12.0 - 04/ MH 16.0 /2016 [place] HEMATOLOGY MCV 87.0 80.0 - 04/ MH 98.0 /2016 [place] HEMATOLOGY Hct 46.4 36.0 - 04 MH 48.0 /2016 [place] HEMATOLOGY MCH 29.1 27.0 - 04/ MH 31.0 /2016 [place] HEMATOLOGY WBC X 10x3 8.0 3.7 - 10.4 04/ /2016 [place] HEMATOLOGY Basophils # 0.1 0.0 - 0.2 04/ /2016 [place] HEMATOLOGY Lymphocytes 2.0 1.0 - 5.5 04/ MH # /2016 [place] HEMATOLOGY Segs-Bands # 5.1 1.5 - 8.1 04/ /2016 [place] HEMATOLOGY Eosinophils 0.2 0.0 - 0.5 04/ MH # /2016 [place] HEMATOLOGY Monocytes # 0.8 0.0 - 0.8 04/ /2016 [facility] HEMATOLOGY Segs 63.2 45.0 - 04/ MH 75.0 /2016 [place] HEMATOLOGY Lymphocytes 24.3 20.0 - 04/ MH 40.0 /2016 [place] HEMATOLOGY Eosinophils 2.1 0.0 - 4.0 / [place] HEMATOLOGY Monocytes 9.6 2.0 - 12.0 04/ /2016 [facility] HEMATOLOGY Basophils 0.8 0.0 - 1.0 04/ [facility] VIRAL - Influ B Negative Negative 11/29 SEROLOGY (11/28/16 8:10 PM) /2016 [place] VIRAL - Influ A Negative Negative 11/29 SEROLOGY (11/28/16 8:10 PM) [place] CARDIAC CK-MB INDEX 1.3 0.0 - 2.5 11/07 ENZYMES /2016 [place] CARDIAC Troponin-I <0.02 0.00 - 11/07 EN[place]YM[place] 0.40 [place] CARDIAC CK MB 1.9 0.5 - 3.6 11/07 ENZYMES [place] CARDIAC Total CK 144 12 - 191 11/07 ENZYMES [place] CHEM PANEL eGFR 77 11/07 Result Comment: The [facility] eGFR is calculated using the CKD-EPI formula. [...] 17 0 - 37 11/07 [facility] TRANSAMINASE [place] CHEM PANEL Total 6.8 6.4 - 8.4 11/07 Protein [facility] CHEM PANEL Calcium Lvl 8.5 8.5 - 10.5 11/07 [facility] CHEM PANEL Bili Total 0.8 0.2 - 1.3 11/07 [facility] CHEM PANEL Chloride Lvl 106 95 - 109 11/07 [facility] CHEM PANEL CO2 31 24 - 32 11/07 [facility] CHEM PANEL Potassium 3.1 3.5 - 5.1 11/07 MH Lvl [place] CHEM PANEL Creatinine 0.90 0.50 - 11/07 MH Lvl 1.40 [place] CHEM PANEL Sodium Lvl 144 135 - 145 11/07 [facility] CHEM PANEL BUN 12 7 - 22 11/07 [facility] CHEM PANEL Glucose Lvl 96 70 - 99 03/ [facility] CHEM PANEL Albumin Lvl 3.3 3.5 - 5.0 11/07 [facility] CHEM PANEL Alk Phos 76 39 - 136 11/07 [facility] CHEM PANEL ALANINE 20 0 - 65 03/ MH AMINOTRANS [place] [facility] CHEM PANEL Globulin 3.5 2.7 - 4.2 11/07 [facility] CHEM PANEL A/G Ratio 0.9 0.7 - 1.6 11/07 [facility] CHEM PANEL AGAP 10.1 10.0 - 03/ MH 20.0 [place] CHEM PANEL B/C Ratio 13 6 - 25 11/07 [facility] HEMATOLOGY Eosinophils 2.8 0.0 - 4.0 11/07 [facility] HEMATOLOGY Eosinophils 0.2 0.0 - 0.5 11/07 MH /2016 [place] HEMATOLOGY Basophils # 0.1 0.0 - 0.2 11/07 [facility] HEMATOLOGY Monocytes # 0.7 0.0 - 0.8 11/07 [facility] HEMATOLOGY Basophils 0.8 0.0 - 1.0 11/07 [facility] HEMATOLOGY Segs-Bands # 4.5 1.5 - 8.1 11/07 [facility] HEMATOLOGY Lymphocytes 2.2 1.0 - 5.5 11/07 MH /2016 [place] HEMATOLOGY Segs 58.5 45.0 - 11/07 MH 75.0 [facility] HEMATOLOGY Lymphocytes 28.8 20.0 - 03 MH 40.0 [facility] HEMATOLOGY Monocytes 9.1 2.0 - 12.0 11/07 [facility] HEMATOLOGY Platelet 196 133 - 450 11/07 [facility] HEMATOLOGY RDW 14.3 11.5 - 11/07 MH 14. [facility] HEMATOLOGY MPV 8.1 7.4 - 10.4 11/07 [facility] HEMATOLOGY WBC X 10x3 7.7 3.7 - 10.4 11/07 [facility] HEMATOLOGY Hgb 13.1 12.0 - 11/07 MH 16.0 [facility] HEMATOLOGY RBC X 10x6 4.48 4.20 - 03 MH 5.40 [place] HEMATOLOGY MCH 29.3 27.0 - 03 MH 31.0 /2016 [place] HEMATOLOGY Hct 39.1 36.0 - 03 MH 48.0 /2016 [facility] HEMATOLOGY MCV 87.3 80.0 - 03 [facility] 98.0 /2016 [facility] HEMATOLOGY MCHC 33.6 32.0 - 03 MH 36.0 /2016 [facility] DRUG U Benzodia Negative Negative 10/11 [place] [...] Center DRUG U Phencyc Negative Negative 10/11 [facility] SCREEN Scr *NA* /2016 Medical (10/11/16 5:24 AM) Center CARDIAC Troponin-I <0.02 0.00 - 10/11 [place] ENZYMES 0.40 [facility] HEMATOLOGY Eosinophils 0.4 0.0 - 0.5 10[place] # /2016 [facility] HEMATOLOGY Basophils # 0.1 0.0 - 0.2 10/11 [place] [facility] HEMATOLOGY Eosinophils 6.3 0.0 - 4.0 10/11 [place] [facility] HEMATOLOGY Basophils 1.0 0.0 - 1.0 10/11 [facility] HEMATOLOGY Segs-Bands # 2.7 1.5 - 8.1 10/11 [place] [facility] HEMATOLOGY Lymphocytes 2.1 1.0 - 5.5 10/11 [place] # [facility] HEMATOLOGY Monocytes # 0.6 0.0 - 0.8 10[place] /2016 [facility] HEMATOLOGY Lymphocytes 36.3 20.0 - 02 [place] 40.0 /2016 [facility] HEMATOLOGY Segs 46.0 45.0 - 10/11 [place] 75.0 [facility] HEMATOLOGY Monocytes 10.4 2.0 - 12.0 10/11 [facility] HEMATOLOGY MPV 8.7 7.4 - 10.4 10/11 [facility] HEMATOLOGY Platelet 194 133 - 450 10/11 [facility] HEMATOLOGY MCH 29.3 27.0 - 02 [place] 31.0 [facility] HEMATOLOGY MCV 87.2 80.0 - 10/11 [place] 98.0 [facility] HEMATOLOGY RDW 14.4 11.5 - 10/11 [place] 14.5 [facility] HEMATOLOGY MCHC 33.6 32.0 - 10/11 [place] 36.0 /2016 [facility] HEMATOLOGY Hgb 13.1 12.0 - 10/11 [place] 16.0 [facility] HEMATOLOGY RBC 4.45 4.20 - 10/11 [place] 5.40 [facility] HEMATOLOGY Hct 38.8 36.0 - 10/11 [place] 48.0 [facility] HEMATOLOGY WBC 5.8 3.7 - 10.4 10/11 [facility] LIPIDS CHD Risk 2.84 3.90 - 10/11 [place] 5.80 [facility] LIPIDS VLDL 14 10/11 [facility] LIPIDS LDL 87 <=99 mg/dL 10/11 [facility] (Calculated) [facility] LIPIDS Trig 71 <=149 10/11 mg/dL [facility] LIPIDS Chol 156 <=199 10/11 [place] mg/dL [facility] LIPIDS HDL 55 >=61 mg/dL 10/11 [facility] CARDIAC Troponin-I <0.02 0.00 - 10/11 [facility] ENZYMES 0. [facility] CARDIAC Troponin-I <0.02 0.00 - 10/10 [facility] ENZYMES 0. [facility] CHEM PANEL eGFR 92 10/10 Result [...] PANEL BUN 8 7 - 22 10/10 [facility] CHEM PANEL Creatinine 0.78 0.50 - 10/10 [facility] Lvl 1.40 [facility] CHEM PANEL Glucose Lvl 108 70 - 99 10/10 [facility] CHEM PANEL Potassium 3.2 3.5 - 5.1 10/10 [facility] CHEM PANEL Calcium Lvl 9.3 8.5 - 10.5 10/10 [facility] CHEM PANEL CO2 31 24 - 32 10/10 [facility] CHEM PANEL Sodium Lvl 143 135 - 145 10/10 [facility] CHEM PANEL Chloride Lvl 108 95 - 109 10/10 [facility] CHEM PANEL AGAP 7.2 10.0 - 10/10 [facility] 20.0 [facility] HEMATOLOGY MCHC 33.8 32.0 - 02 [place] 36.0 [facility] HEMATOLOGY RDW 14.2 11.5 - 10/10 [place] 14.5 [facility] HEMATOLOGY MCH 29.4 27.0 - 02 [place] 31.0 [facility] HEMATOLOGY MCV 87.0 80.0 - 10/10 [place] 98.0 [facility] HEMATOLOGY Hgb 13.5 12.0 - 02 [place] 16.0 [facility] HEMATOLOGY Hct 39.8 36.0 - 10/10 [place] 48.0 [facility] HEMATOLOGY Platelet 208 133 - 450 10/10 [facility] HEMATOLOGY MPV 8.7 7.4 - 10.4 10/10 [facility] HEMATOLOGY WBC 6.6 3.7 - 10.4 10/10 [facility] HEMATOLOGY RBC 4.58 4.20 - 10/10 [place] 5.40 /2016 [facility] HEMATOLOGY Lymphocytes 1.8 1.0 - 5.5 10/10 [facility] # /2016 [facility] HEMATOLOGY Monocytes # 0.6 0.0 - 0.8 10/10 [facility] HEMATOLOGY Eosinophils 0.3 0.0 - 0.5 10/10 [facility] # [facility] HEMATOLOGY Basophils 0.6 0.0 - 1.0 10/10 [facility] HEMATOLOGY Segs-Bands # 3.9 1.5 - 8.1 10/10 [facility] HEMATOLOGY Monocytes 9.0 2.0 - 12.0 10/10 [facility] HEMATOLOGY Eosinophils 4.1 0.0 - 4.0 10/10 [facility] /2016 [facility] HEMATOLOGY Segs 59.5 45.0 - 10/10 [place] 75.0 [facility] HEMATOLOGY Lymphocytes 26.8 20.0 - 10/10 [place] 40.0 [facility] CARDIAC Troponin-I <0.02 0.00 - 04/14 [facility] ENZYMES 0.40 [facility] ELECTROLYT AGAP 13.5 10.0 - 04/14 [facility] ES 20.0 [facility] ELECTROLYT eGFR 79 04/14 Result [facility] Comment: The Medical eGFR is Center calculated [...] BMI. ELECTROLYT Creatinine 0.89 0.50 - 04/14 [facility] ES Lvl 1.40 [facility] ELECTROLYT BUN 9 7 - 22 04/14 [facility] ELECTROLYT Glucose Lvl 72 70 - 99 04/14 [facility] ELECTROLYT Chloride Lvl 107 95 - 109 04/14 [place] [facility] ELECTROLYT CO2 25 24 - 32 04/14 [facility] ELECTROLYT Calcium Lvl 8.9 8.5 - 10.5 04/14 [place] [facility] ELECTROLYT Sodium Lvl 142 135 - 145 04/14 [facility] ELECTROLYT Potassium 3.5 3.5 - 5.1 04/14 [facility] ES Lvl /2015 [facility] HEMATOLOGY Platelet 181 133 - 450 04/14 [facility] HEMATOLOGY MPV 8.5 7.4 - 10.4 04/14 [facility] HEMATOLOGY MCHC 33.5 32.0 - 04/14 [place] 36.0 /2015 [facility] HEMATOLOGY MCH 28.7 27.0 - 04/14 [place] 31.0 [facility] HEMATOLOGY RDW 15.0 11.5 - 04/14 [place] 14.5 /2015 [facility] HEMATOLOGY Hct 38.3 36.0 - 04/14 [place] 48.0 [facility] HEMATOLOGY MCV 85.6 80.0 - 04/14 [place] 98.0 /2015 [facility] HEMATOLOGY Hgb 12.9 12.0 - 04/14 [place] 16.0 /2015 [facility] HEMATOLOGY RBC 4.48 4.20 - 04/14 [place] 5.40 /2015 [facility] HEMATOLOGY WBC 5.6 3.7 - 10.4 04/14 [facility] HEMATOLOGY Basophils # 0.1 0.0 - 0.2 04/[place]2015 [facility] HEMATOLOGY Lymphocytes 2.2 1.0 - 5.5 04/14 [place] # /2015 [facility] HEMATOLOGY Eosinophils 0.3 0.0 - 0.5 04/14 [place] # /2015 [facility] HEMATOLOGY Monocytes # 0.5 0.0 - 0.8 04/14 [place] /2015 [facility] HEMATOLOGY Eosinophils 6.1 0.0 - 4.0 04/14 [place]2015 [facility] HEMATOLOGY Basophils 1.1 0.0 - 1.0 04/14 [place] [facility] HEMATOLOGY Segs-Bands # 2.5 1.5 - 8.1 04/14 [place] [facility] HEMATOLOGY Lymphocytes 38.8 20.0 - 04/14 [place] 40.0 /2015 [facility] HEMATOLOGY Monocytes 9.2 2.0 - 12.0 04/14 [facility] HEMATOLOGY Segs 44.8 45.0 - 04/14 [place] 75.0 [facility] TOXICOLOGY Ethanol Lvl 8 04/14 [facility] TOXICOLOGY Etoh (%) 0.008 04/14 [facility] CARDIAC Troponin-I <0.02 0.00 - 03/12 [facility] 0.40 [facility] LIPIDS CHD Risk 3.39 3.90 - 03/12 5.80 /2015 [facility] LIPIDS VLDL 18 03/12 [facility] LIPIDS LDL 73 <=99 mg/dL 03/12 (Calculated) [facility] LIPIDS Trig 90 <=149 03/12 mg/dL [facility] LIPIDS Chol 129 <=199 03/12 mg/dL [facility] LIPIDS HDL 38 >=61 mg/dL 03/12 [facility] SPECIAL Hgb A1C 5.9 <=5.6 % 03/12 CHEMISTRY /2015 [facility] CARDIAC Total CK 81 12 - 191 03/12 ENZYMES /2015 [facility] CARDIAC Troponin-I 0.02 0.00 - 03/12 [facility] 0.40 [facility] CARDIAC CK-MB INDEX 1.6 0.0 - 2.5 03/12 [facility] CARDIAC CK MB 1.3 0.5 - 3.6 03/12 [place]ES /2015 [facility] HEMATOLOGY PROTIME 14.0 12.0 - 03/11 MH 14.7 /2015 [facility] HEMATOLOGY INR 1.05 0.85 - 03/11 MH 1.17 [facility] HEMATOLOGY aPTT 38.7 22.9 - 03/11 35.8 /2015 [facility] HEMATOLOGY D-Dimer 0.49 03/11 /2015 [facility] CARDIAC CK-MB INDEX 1.6 0.0 - 2.5 03/11 EN[place]ES [facility] CARDIAC CK MB 1.3 0.5 - 3.6 07/14 [facility] ENZYMES /2016 [facility] CARDIAC Troponin-I <0.02 0.00 - 07 [place] 0.40 /2016 [facility] CARDIAC Total CK 83 12 - 191 / MH ENZYMES /2016 [facility] CARDIAC proBNP 50 0 - 125 / MH ENZYMES /2016 [facility] CHEM PANEL Lipase Lvl 196 73 - 393 03/11 MH [facility] CHEM PANEL eGFR 110 / Result Comment: The [facility] eGFR is calculated using the CKD-EPI formula. [...] PANEL Globulin 2.8 2.0 - 4.0 03/11 [facility] CHEM PANEL A/G Ratio 1.2 0.7 - 1.6 03/11 [facility] CHEM PANEL B/C Ratio 15 6 - 25 03/11 [facility] CHEM PANEL AGAP 10.4 10.0 - 03/11 MH 20.0 /2016 [facility] CHEM PANEL ASPARTATE 14 0 - 37 / MH TRANSAMINASE /2015 [facility] CHEM PANEL Total 6.1 6.4 - 8.4 03/11 Protein /2015 [facility] CHEM PANEL Bili Total 0.5 0.2 - 1.3 03/11 [facility] CHEM PANEL Calcium Lvl 7.7 8.5 - 10.5 03/11 /2015 [facility] CHEM PANEL CO2 26 24 - 32 03/11 [facility] CHEM PANEL Chloride Lvl 110 95 - 109 03/11 [facility] CHEM PANEL Potassium 3.4 3.5 - 5.1 03/11 MH Lvl /2015 [facility] CHEM PANEL Sodium Lvl 143 135 - 145 07/ [facility] CHEM PANEL Creatinine 0.61 0.50 - 07 [facility] Lvl 1.40 [facility] CHEM PANEL BUN 9 7 - 22 03/11 [facility] CHEM PANEL Alk Phos 76 39 - 136 07 [facility] CHEM PANEL Glucose Lvl 88 70 - 99 07 [facility] CHEM PANEL Albumin Lvl 3.3 3.5 - 5.0 07 [facility] CHEM PANEL ALANINE 15 0 - 65 07 MH AMINOTRANSFE [facility] HEMATOLOGY Lymphocytes 1.8 1.0 - 5.5 07 MH # /2015 [facility] HEMATOLOGY Monocytes # 0.5 0.0 - 0.8 07 [facility] HEMATOLOGY Basophils 1.0 0.0 - 1.0 03/11 [facility] HEMATOLOGY Segs-Bands # 4.1 1.5 - 8.1 03/11 [facility] HEMATOLOGY Eosinophils 0.2 0.0 - 0.5 03/11 MH # /2015 [facility] HEMATOLOGY Basophils # 0.1 0.0 - 0.2 07 [facility] HEMATOLOGY Segs 61.4 45.0 - 07 MH 75.0 [facility] HEMATOLOGY Eosinophils 3.5 0.0 - 4.0 03/11 [facility] HEMATOLOGY Lymphocytes 26.6 20.0 - 03/11 [facility] 40.0 [facility] HEMATOLOGY Monocytes 7.5 2.0 - 12.0 07 [facility] HEMATOLOGY WBC X 10x3 6.7 3.7 - 10.4 07 [facility] HEMATOLOGY Hgb 12.2 12.0 - 07 MH 16.0 [facility] HEMATOLOGY RBC X 10x6 4.26 4.20 - 07 MH 5.40 [facility] HEMATOLOGY MCH 28.7 27.0 - 07 MH 31.0 [facility] HEMATOLOGY MCV 86.0 80.0 - 07 [facility] 98.0 [facility] HEMATOLOGY RDW 14.9 11.5 - 07 MH 14. [facility] HEMATOLOGY MCHC 33.3 32.0 - 07 [facility] 36.0 [facility] HEMATOLOGY Hct 36.6 36.0 - 07 [facility] 48.0 [facility] HEMATOLOGY MPV 8.7 7.4 - 10.4 03/11 [facility] HEMATOLOGY Platelet 171 133 - 450 03/11 [facility] URINE AND UA WBC 0-2 /HPF None Seen 03/11 STOOL /HPF /2015 [facility] URINE AND UA Nitrite Negative Negative 03/11 [facility] (03/11/16 3:14 PM) /2015 [place] URINE AND UA Leuk Est Negative Negative 03/11 STOOL (03/11/16 3:14 PM) /2015 [place] URINE AND UA Bacteria Occasional None Seen 03/11 STOOL /HPF /HPF /2015 [facility] URINE AND UA RBC 0-2 /HPF 0 - 2 03/11 STOOL /2015 [facility] URINE AND UA Sq Epi Occasional Few /LPF 03/11 STOOL /LPF /2015 [facility] URINE AND UA Blood Negative Negative 03/11 [facility] (03/11/16 3:14 PM) /2015 [place] URINE AND UA 0.2 0.1 - 1.0 03/11 STOOL Urobilinogen /2015 [facility] URINE AND UA Turbidity Clear Clear 03/11 STOOL (03/11/16 3:14 PM) /2015 [place] URINE AND UA Glucose Negative Negative 03/11 STOOL (03/11/16 3:14 PM) /2015 [place] URINE AND UA Spec Grav <=1.005 <=1.030 03/11 [facility] *NA* /2015 [facility] (03/11/16 3:14 PM) URINE AND UA pH 6.5 5.0 - 8.0 03/11 STOOL /2015 [facility] URINE AND UA Ketones Negative Negative 03/11 STOOL *NA* /2015 [facility] (03/11/16 3:14 PM) URINE AND UA Bili Negative Negative 03/11 STOOL *NA* [facility] (03/11/16 3:14 PM) URINE AND UA Protein Negative Negative 03/11 STOOL (03/11/16 3:14 PM) /2015 [place] URINE AND UA Color Yellow Yellow 03/11 STOOL *NA* /2015 [facility] (03/11/16 3:14 PM) URINE AND UA Color Yellow Yellow 03/01 STOOL *NA* [facility] (02/29/16 7:22 PM) URINE AND UA pH 6.0 5.0 - 8.0 03/01 STOOL /2015 [facility] URINE AND UA Turbidity Clear Clear 03/01 STOOL (02/29/16 7:22 PM) /2015 [place] URINE AND UA Spec Grav 1.015 <=1.030 03/01 STOOL /2015 [facility] URINE AND UA Leuk Est Trace Negative 03/01 STOOL *ABN* /2015 [facility] (02/29/16 7:22 PM) URINE AND UA Bacteria Few /HPF None Seen 03/01 STOOL /HPF /2015 [facility] URINE AND UA RBC None Seen 0 - 2 03/01 [facility] (02/29/16 7:22 PM) /2015 [place] URINE AND UA Sq Epi Moderate Few /LPF 03/01 STOOL /LPF /2015 [facility] URINE AND UA WBC 0-2 /HPF None Seen 03/01 STOOL /HPF /2015 [facility] URINE AND UA Blood Negative Negative 03/01 STOOL (02/29/16 7:22 PM) /2015 [place] URINE AND UA 1.0 0.1 - 1.0 03/01 STOOL Urobilinogen /2015 [facility] URINE AND UA Nitrite Negative Negative 03/01 STOOL (02/29/16 7:22 PM) /2015 [place] URINE AND UA Few /HPF None Seen 03/01 STOOL Trichomonas /HPF /2015 [facility] URINE AND UA Protein Negative Negative 03/01 STOOL (02/29/16 7:22 PM) [place] URINE AND UA Bili Negative Negative 03/01 STOOL *NA* /2015 [facility] (02/29/16 7:22 PM) URINE AND UA Ketones Negative Negative 03/01 STOOL *NA* /2015 [facility] (02/29/16 7:22 PM) URINE AND UA Glucose Negative Negative 03/01 STOOL (02/29/16 7:22 PM) /2015 [place] CARDIAC Troponin-I <0.02 0.00 - 02/28 [facility] 0.40 /2015 [facility] CARDIAC CK MB 1.1 0.5 - 3.6 02/28 ENZYMES [facility] CARDIAC Total CK 136 12 - 191 02/28 ENZYMES /2015 [facility] CARDIAC proBNP 7 0 - 125 02/28 [facility]YMES /2015 [facility] CARDIAC CK-MB INDEX 0.8 0.0 - 2.5 MH ENZYMES /2015 [facility] CHEM PANEL eGFR 80 02/28 Result Comment: The [facility] eGFR is calculated using the CKD-EPI formula. [...] ASPARTATE 13 0 - 37 02/28 TRANSAMINASE [facility] CHEM PANEL A/G Ratio 1.0 0.7 - 1.6 02/28 [facility] CHEM PANEL Globulin 3.6 2.0 - 4.0 02/28 [facility] CHEM PANEL B/C Ratio 9 6 - 25 02/28 [facility] CHEM PANEL Total 7.1 6.4 - 8.4 02/28 [facility] CHEM PANEL AGAP 10.0 10.0 - 02/28 MH 20.0 /2015 [facility] CHEM PANEL Sodium Lvl 143 135 - 145 02/28 [facility] CHEM PANEL Potassium 3.0 3.5 - 5.1 02/28 Result Lvl /2015 Comment: [facility] Critical Result(s) called to HAI RUVALCABA RN at 02/29/2016 18:45 by MRE. Read back OK. CHEM PANEL Creatinine 0.88 0.50 - 07 MH Lvl 1.40 /2015 [facility] CHEM PANEL CO2 30 24 - 32 02/28 [facility] CHEM PANEL Bili Total 0.6 0.2 - 1.3 02/28 [facility] CHEM PANEL Calcium Lvl 8.7 8.5 - 10.5 02/28 [facility] CHEM PANEL Chloride Lvl 106 95 - 109 /2015 [facility] CHEM PANEL ALANINE 15 0 - 65 07/ MH AMINOTRANSFE /2015 [facility] RASE CHEM PANEL Alk Phos 88 39 - 136 07/ /2015 [facility] CHEM PANEL Albumin Lvl 3.5 3.5 - 5.0 07/ /2015 [facility] CHEM PANEL BUN 8 7 - 22 07/ /2015 [facility] CHEM PANEL Glucose Lvl 89 70 - 99 07/ /2015 [facility] HEMATOLOGY PROTIME 13.2 12.0 - 07/ MH 14.7 /2015 [facility] HEMATOLOGY INR 0.97 0.85 - 07/ MH 1.17 /2015 [facility] HEMATOLOGY RDW 15.3 11.5 - 07 MH 14.5 /2015 [facility] HEMATOLOGY MCHC 32.9 32.0 - 07/ MH 36.0 /2015 [facility] HEMATOLOGY Hct 43.8 36.0 - 07/ MH 48.0 /2015 [facility] HEMATOLOGY MCH 28.1 27.0 - 07 MH 31.0 [facility] HEMATOLOGY MCV 85.5 80.0 - 07/ MH 98.0 /2015 [facility] HEMATOLOGY WBC X 10x3 5.3 3.7 - 10.4 07/ /2015 [facility] HEMATOLOGY Hgb 14.4 12.0 - 07/ MH 16.0 /2015 [facility] HEMATOLOGY RBC X 10x6 5.12 4.20 - 07/ MH 5.40 /2015 [facility] HEMATOLOGY Platelet 197 133 - 450 07/ MH /2015 [facility] HEMATOLOGY MPV 8.1 7.4 - 10.4 07/ /2015 [facility] HEMATOLOGY Segs 57.2 45.0 - 07/ MH 75.0 /2015 [facility] HEMATOLOGY Monocytes 11.7 2.0 - 12.0 07/ MH /2015 [facility] HEMATOLOGY Lymphocytes 24.1 20.0 - 07/ MH 40.0 [facility] HEMATOLOGY Basophils # 0.1 0.0 - 0.2 07/03 MH /2015 [facility] HEMATOLOGY Monocytes # 0.6 0.0 - 0.8 07/ MH /2015 [facility] HEMATOLOGY Lymphocytes 1.3 1.0 - 5.5 07/03 MH # /2015 [facility] HEMATOLOGY Eosinophils 0.3 0.0 - 0.5 07/03 MH # /2015 [facility] HEMATOLOGY Segs-Bands # 3.0 1.5 - 8.1 02/28 [facility] HEMATOLOGY Eosinophils 5.9 0.0 - 4.0 02/28 [facility] HEMATOLOGY Basophils 1.1 0.0 - 1.0 02/28 [facility] CARDIAC CK MB Index 0.7 0.0 - 2.5 09/04 ENZYMES [facility] CARDIAC CK MB 0.7 0.5 - 3.6 09/04 ENZYMES /2015 [facility] CARDIAC Troponin-I <0.02 0.00 - 09/04 ENZYMES 0.40 /2015 [facility] CARDIAC Total CK 97 12 - 191 09/04 ENZYMES [facility] ELECTROLYT AGAP 18.3 10.0 - 09/04 ES 20.0 /2015 [facility] ELECTROLYT eGFR 78 09/04 [facility] Comment: The [facility] eGFR is calculated using the CKD-EPI formula. [...] Glucose Lvl 134 70 - 99 09/04 [facility] ELECTROLYT BUN 10 7 - 22 09/04 [facility] ELECTROLYT Creatinine 0.90 0.50 - 09/04 ES Lvl 1.40 /2015 [facility] ELECTROLYT CO2 20 24 - 32 09/04 [facility] ELECTROLYT Calcium Lvl 9.4 8.5 - 10.5 09/04 [facility] ELECTROLYT Potassium 4.3 3.5 - 5.1 09/04 ES Lvl /2015 [facility] ELECTROLYT Chloride Lvl 106 95 - 109 09/04 [facility] ELECTROLYT Sodium Lvl 140 135 - 145 09/04 ES /2015 [facility] HEMATOLOGY WBC 9.6 3.7 - 10.4 09/04 /2015 [facility] HEMATOLOGY Hct 41.4 36.0 - 09/04 48.0 /2015 [facility] HEMATOLOGY Hgb 13.1 12.0 - 09/04 MH 16.0 /2015 [facility] HEMATOLOGY RBC 4.74 4.20 - 09/04 MH 5.40 /2015 [facility] HEMATOLOGY MCV 87.3 80.0 - 09/04 98.0 /2015 [facility] HEMATOLOGY MCHC 31.5 32.0 - 09/04 MH 36.0 /2015 [facility] HEMATOLOGY MCH 27.5 27.0 - 09/04 MH 31.0 /2015 [facility] HEMATOLOGY MPV 8.7 7.4 - 10.4 09/04 /2015 [facility] HEMATOLOGY Platelet 226 133 - 450 09/04 /2015 [facility] HEMATOLOGY RDW 14.4 11.5 - 09/04 14.5 /2015 [facility] HEMATOLOGY Monocytes # 0.1 0.0 - 0.8 09/04 /2015 [facility] HEMATOLOGY Lymphocytes 0.5 1.0 - 5.5 09/04 MH # /2015 [facility] HEMATOLOGY RBC Morph Normal 09/04 (09/04/15 11:04 AM) /2015 [facility] HEMATOLOGY Plt Morph Normal 09/04 (09/04/15 11:04 AM) /2015 [facility] HEMATOLOGY Segs 93.3 45.0 - 09/04 75.0 /2015 [facility] HEMATOLOGY Basophils 0.2 0.0 - 1.0 09/04 /2015 [facility] HEMATOLOGY Lymphocytes 5.4 20.0 - 09/04 40.0 /2015 [facility] HEMATOLOGY Monocytes 1.1 2.0 - 12.0 09/04 /2015 [facility] HEMATOLOGY Segs-Bands # 9.0 1.5 - 8.1 09/04 [facility] LIPIDS VLDL 14 09/04 [facility] LIPIDS Chol 198 <=199 09/04 mg/dL /2015 [facility] LIPIDS HDL 54 >=61 mg/dL 09/04 [facility] LIPIDS Trig 71 <=149 09/04 mg/dL /2015 [facility] LIPIDS LDL 130 <=99 mg/dL 09/04 (Calculated) /2015 [facility] LIPIDS CHD Risk 3.67 3.90 - 09/04 5.80 /2015 [facility] CARDIAC CK MB Index 0.6 0.0 - 2.5 09/04 MH ENZYMES /2015 [facility] CARDIAC CK MB 0.6 0.5 - 3.6 09/04 ENZYMES /2015 [facility] CARDIAC Troponin-I <0.02 0.00 - 09/04 ENZYMES 0.40 [facility] CARDIAC Total CK 103 12 - 191 09/04 MH ENZYMES /2015 [facility] CARDIAC Total CK 113 12 - 191 09/04 ENZYMES /2015 [facility] CARDIAC Troponin-I <0.02 0.00 - 09/04 ENZYMES 0.40 [facility] CARDIAC CK MB 0.8 0.5 - 3.6 09/04 ENZYMES /2015 [facility] CARDIAC CK MB Index 0.7 0.0 - 2.5 09/04 ENZYMES [facility] CHEM PANEL eGFR 87 09/04 [facility] Comment: The [facility] eGFR is calculated using the CKD-EPI formula. [...] PANEL BUN 8 7 - 22 09/04 [facility] CHEM PANEL Creatinine 0.82 0.50 - 09/04 MH Lvl 1.40 [facility] CHEM PANEL Glucose Lvl 115 70 - 99 09/04 [facility] CHEM PANEL Chloride Lvl 106 95 - 109 09/04 [facility] CHEM PANEL Potassium 3.9 3.5 - 5.1 09/04 MH Lvl [facility] CHEM PANEL Sodium Lvl 141 135 - 145 09/04 [facility] CHEM PANEL AGAP 13.9 10.0 - 09/04 MH 20.0 [facility] CHEM PANEL Calcium Lvl 9.2 8.5 - 10.5 09/04 [facility] CHEM PANEL CO2 25 24 - 32 09/04 /2015 [facility] HEMATOLOGY WBC 7.4 3.7 - 10.4 09/04 [facility] HEMATOLOGY Hgb 12.4 12.0 - 09/04 MH 16.0 /2015 [facility] HEMATOLOGY RBC 4.57 4.20 - 09/04 MH 5.40 /2015 [facility] HEMATOLOGY Hct 39.4 36.0 - 09/04 MH 48.0 /2015 [facility] HEMATOLOGY MCV 86.1 80.0 - 09/04 98.0 /2015 [facility] HEMATOLOGY RDW 14.7 11.5 - 09/04 MH 14.5 /2015 [facility] HEMATOLOGY MCHC 31.6 32.0 - 09/04 MH 36.0 /2015 [facility] HEMATOLOGY MCH 27.2 27.0 - 09/04 MH 31.0 /2015 [facility] HEMATOLOGY MPV 8.3 7.4 - 10.4 09/04 [facility] HEMATOLOGY Platelet 239 133 - 450 09/04 [facility] HEMATOLOGY Eosinophils 5.5 0.0 - 4.0 09/04 [facility] HEMATOLOGY Monocytes 6.5 2.0 - 12.0 09/04 [facility] HEMATOLOGY Lymphocytes 31.7 20.0 - 09/04 40.0 [facility] HEMATOLOGY Segs 55.0 45.0 - 09/04 75.0 /2015 [facility] HEMATOLOGY Monocytes # 0.5 0.0 - 0.8 09/04 [facility] HEMATOLOGY Lymphocytes 2.3 1.0 - 5.5 09/04 # /2015 [facility] HEMATOLOGY Segs-Bands # 4.0 1.5 - 8.1 09/04 [facility] HEMATOLOGY Basophils 1.3 0.0 - 1.0 09/04 [facility] HEMATOLOGY Basophils # 0.1 0.0 - 0.2 09/04 [facility] HEMATOLOGY Eosinophils 0.4 0.0 - 0.5 09/04 MH # /2015 [facility] CARDIAC Troponin-I <0.02 0.00 - 07/16 ENZYMES 0.40 [facility] CARDIAC Total CK 75 12 - 191 07/16 MH ENZYMES /2014 [facility] CARDIAC CK MB 0.9 0.5 - 3.6 07/16 MH ENZYMES /2014 [facility] CARDIAC CK-MB INDEX 1.2 0.0 - 2.5 07/16 MH ENZYMES /2014 [facility] CHEM PANEL eGFR 105 07/16 Result Comment: The [facility] eGFR is calculated using the CKD-EPI formula. [...] Bili Total 0.6 0.2 - 1.3 07/16 [facility] CHEM PANEL Albumin Lvl 3.1 3.5 - 5.0 07/16 [facility] CHEM PANEL Calcium Lvl 9.0 8.5 - 10.5 07/16 [facility] CHEM PANEL Total 6.3 6.4 - 8.4 07/16 [facility] CHEM PANEL AST 14 0 - 37 07/16 [facility] CHEM PANEL Alk Phos 89 39 - 136 07/16 [facility] CHEM PANEL ALT 19 0 - 65 07/16 [facility] PANEL CO2 25 24 - 32 07/16 [facility] CHEM PANEL Potassium 4.2 3.5 - 5.1 07/16 [facility] CHEM PANEL Chloride Lvl 108 95 - 109 07/16 [facility] CHEM PANEL BUN 14 7 - 22 07/16 [facility] CHEM PANEL Creatinine 0.70 0.50 - 11 MH Lvl 1.40 /2014 [facility] CHEM PANEL Sodium Lvl 139 135 - 145 07/16 [facility] CHEM PANEL Glucose Lvl 78 70 - 99 07/16 [facility] CHEM PANEL B/C Ratio 20 6 - 25 07/16 [facility] CHEM PANEL AGAP 10.2 10.0 - 07/16 MH 20.0 /2014 [facility] CHEM PANEL A/G Ratio 1.0 0.7 - 1.6 07/16 [facility] CHEM PANEL Globulin 3.2 2.0 - 4.0 11 MH /2014 [facility] HEMATOLOGY MPV 8.6 7.4 - 10.4 07/16 MH /2014 [facility] HEMATOLOGY Platelet 166 133 - 450 07/16 MH /2014 [facility] HEMATOLOGY RDW 14.3 11.5 - 18 MH 14.5 /2014 [facility] HEMATOLOGY RBC 4.53 4.20 - 07/16 MH 5.40 /2014 [facility] HEMATOLOGY WBC 5.5 3.7 - 10.4 07/16 MH /2014 [facility] HEMATOLOGY MCH 27.9 27.0 - 07/16 MH 31.0 /2014 [facility] HEMATOLOGY MCHC 31.5 32.0 - 07/16 MH 36.0 /2014 [facility] HEMATOLOGY MCV 88.6 80.0 - 07/16 MH 98.0 /2014 [facility] HEMATOLOGY Hct 40.2 36.0 - 07/16 MH 48.0 /2014 [facility] HEMATOLOGY Hgb 12.6 12.0 - 07/16 MH 16.0 /2014 [facility] HEMATOLOGY Eosinophils 0.2 0.0 - 0.5 07/16 MH # /2014 [facility] HEMATOLOGY Lymphocytes 2.0 1.0 - 5.5 07/16 MH # /2014 [facility] HEMATOLOGY Basophils 0.9 0.0 - 1.0 07/16 MH /2014 [facility] HEMATOLOGY Monocytes # 0.6 0.0 - 0.8 07/16 MH /2014 [facility] HEMATOLOGY Segs-Bands # 2.6 1.5 - 8.1 07/16 MH /2014 [facility] HEMATOLOGY Monocytes 11.0 2.0 - 12.0 07/16 MH /2014 [facility] HEMATOLOGY Eosinophils 4.0 0.0 - 4.0 07/16 [facility]2014 [facility] [place] HEMATOLOGY Lymphocytes 36.1 20.0 - 07/16 MH 40.0 /2014 [facility] [place] HEMATOLOGY Segs 48.0 45.0 - 07/16 MH 75.0 /2014 [facility] [place] HEMATOLOGY Basophils # 0.1 0.0 - 0.2 07/16 MH /2014 [facility] [place] CARDIAC Troponin-I <0.02 0.00 - 07/16 MH ENZYMES 0.40 [facility] [place] CARDIAC Total CK 88 12 - 191 07/16 MH ENZYMES /2014 [facility] [place] CARDIAC CK MB Index 1.1 0.0 - 2.5 07/16 [facility] ENZYMES /2014 [facility] [place] CARDIAC CK MB 1.0 0.5 - 3.6 07/16 MH ENZYMES /2014 [facility] [place] CARDIAC Troponin-I <0.02 0.00 - 07/15 MH ENZYMES 0.40 /2014 [facility] [place] CARDIAC CK MB 1.2 0.5 - 3.6 07/15 EN[facility]YMES /2014 [facility] [place] CARDIAC Total CK 103 12 - 191 07/15 ENZYMES [facility] [place] CARDIAC CK MB Index 1.2 0.0 - 2.5 07/15 EN[facility]ES [facility] [place] CHEM PANEL eGFR 90 07/15 [facility] Comment: The [facility] [place] eGFR is calculated using the CKD-EPI formula. [...] Alk Phos 91 39 - 136 07/15 [facility] [place] CHEM PANEL AST 19 0 - 37 07/15 [facility] CHEM PANEL ALT 17 0 - 65 07/15 [facility] [place] CHEM PANEL B/C Ratio 12 6 - 25 07/15 [facility] [place] CHEM PANEL Bili Total 0.8 0.2 - 1.3 07/15 [facility] [place] CHEM PANEL AGAP 11.1 10.0 - 07/15 MH 20.0 /2014 [facility] [place] CHEM PANEL Albumin Lvl 3.5 3.5 - 5.0 07/15 [place] CHEM PANEL CO2 27 24 - 32 07/15 [facility] [place] CHEM PANEL Total 6.8 6.4 - 8.4 07/15 Protein [facility] [place] CHEM PANEL Calcium Lvl 8.7 8.5 - 10.5 07/15 [facility] [place] CHEM PANEL Globulin 3.3 2.0 - 4.0 07/15 [facility] [place] CHEM PANEL A/G Ratio 1.1 0.7 - 1.6 07/15 [facility] [place] CHEM PANEL Creatinine 0.80 0.50 - 07/15 MH Lvl 1.40 /2014 [facility] [place] CHEM PANEL Chloride Lvl 104 95 - 109 07/15 /2014 [facility] [place] CHEM PANEL Sodium Lvl 138 135 - 145 07/15 [facility] [place] CHEM PANEL Potassium 4.1 3.5 - 5.1 07/15 [facility] Lvl /2014 [facility] [place] CHEM PANEL BUN 10 7 - 22 07/15 /2014 [facility] [place] CHEM PANEL Glucose Lvl 72 70 - 99 07/15 /2014 [facility] [place] HEMATOLOGY Segs-Bands # 3.3 1.5 - 8.1 07/15 /2014 [facility] [place] HEMATOLOGY Eosinophils 0.2 0.0 - 0.5 07/15 MH # /2014 [facility] [place] HEMATOLOGY Monocytes # 0.6 0.0 - 0.8 07/15 /2014 [facility] [place] HEMATOLOGY Lymphocytes 2.3 1.0 - 5.5 07/15 MH # /2014 [facility] [place] HEMATOLOGY Segs 51.8 45.0 - 07/15 MH 75.0 /2014 [facility] [place] HEMATOLOGY Basophils 0.6 0.0 - 1.0 07/15 [facility] [place] HEMATOLOGY Eosinophils 3.1 0.0 - 4.0 07/15 /2014 [facility] [place] HEMATOLOGY Monocytes 9.4 2.0 - 12.0 07/15 /2014 [facility] [place] HEMATOLOGY Lymphocytes 35.1 20.0 - 07/15 40.0 /2014 [facility] [place] HEMATOLOGY Basophils # 0.0 0.0 - 0.2 07/15 /2014 [facility] [place] HEMATOLOGY MPV 9.1 7.4 - 10.4 07/15 /2014 [facility] [place] HEMATOLOGY MCV 87.6 80.0 - 07/15 98.0 /2014 [facility] [place] HEMATOLOGY Hgb 12.9 12.0 - 07/15 16.0 /2014 [facility] [place] HEMATOLOGY Hct 39.8 36.0 - 07/15 48.0 /2014 [facility] [place] HEMATOLOGY MCHC 32.3 32.0 - 07/15 36.0 /2014 [facility] [place] HEMATOLOGY RDW 14.8 11.5 - 07/15 14.5 /2014 [facility] [place] HEMATOLOGY MCH 28.3 27.0 - 07/15 31.0 /2014 [facility] [place] HEMATOLOGY Platelet 171 133 - 450 07/15 [facility] [place] HEMATOLOGY RBC 4.54 4.20 - 07/15 5.40 /2014 [facility] [place] HEMATOLOGY WBC 6.4 3.7 - 10.4 07/15 [facility] [place] IMMUNOLOGY [facility] HIV 4th Negative Negative 05/18 [facility] GEN (05/18/15 2:18 PM) [facility] CARDIAC Troponin-I <0.02 0.00 - 05/18 [facility] ENZYMES 0.40 [facility] CHEM PANEL Bili Direct 0.1 0.0 - 0.3 05/18 [facility] /2014 [facility] CHEM PANEL Globulin 3.9 2.0 - 4.0 05/18 [facility] CHEM PANEL Alk Phos 105 39 - 136 05/18 [place] [facility] CHEM PANEL Bili Total 0.5 0.2 - 1.3 05/18 [place] [facility] CHEM PANEL AST 22 0 - 37 05/18 [place] [facility] CHEM PANEL ALT 18 0 - 65 05/18 [facility] /2014 [facility] CHEM PANEL Total 7.9 6.4 - 8.4 05/18 [facility] Protein [facility] CHEM PANEL Albumin Lvl 4.0 3.5 - 5.0 05/18 [facility] CHEM PANEL Bili 0.4 0.0 - 1.0 05/18 [facility] Indirect [facility] CHEM PANEL A/G Ratio 1.0 0.7 - 1.6 05/18 [facility] CHEM PANEL Lipase Lvl 266 73 - 393 05/18 [facility] CHEM PANEL eGFR 78 05/18 [facility] Comment: The Medical eGFR is Center [...] Sodium Lvl 138 135 - 145 05/18 [facility] CHEM PANEL Potassium 3.9 3.5 - 5.1 05/18 [facility] CHEM PANEL Creatinine 0.9 0.5 - 1.4 05/18 [facility] CHEM PANEL Glucose Lvl 87 70 - 99 05/18 [facility] CHEM PANEL BUN 7 7 - 22 05/18 [facility] CHEM PANEL Chloride Lvl 103 95 - 109 05/18 [facility] [place] CHEM PANEL CO2 28 24 - 32 05/18 [facility] CHEM PANEL Calcium Lvl 10.2 8.5 - 10.5 05/18 [facility] CHEM PANEL AGAP 10.9 10.0 - 05/18 20.0 [facility] HEMATOLOGY Hgb 14.2 12.0 - 05/18 [place] 16.0 [facility] HEMATOLOGY RBC 4.96 4.20 - 05/18 [place] 5.40 /2014 [facility] [place] HEMATOLOGY MCH 28.7 27.0 - 05/18 [place] 31.0 [facility] [place] HEMATOLOGY MCHC 32.9 32.0 - 05/18 [place] 36.0 [facility] [place] HEMATOLOGY Hct 43.3 36.0 - 05/18 48.0 [facility] HEMATOLOGY MCV 87.2 80.0 - 05/18 [place] 98.0 [facility] HEMATOLOGY WBC 6.8 3.7 - 10.4 05/18 [facility] HEMATOLOGY Platelet 215 133 - 450 05/18 [facility] HEMATOLOGY MPV 8.2 7.4 - 10.4 05/18 [facility] HEMATOLOGY RDW 14.5 11.5 - 05/18 [place] 14.5 [facility] HEMATOLOGY Segs 55.6 45.0 - 05/18 [place] 75.0 /2014 [facility] HEMATOLOGY Lymphocytes 32.7 20.0 - 05/18 [place] 40.0 [facility] HEMATOLOGY Monocytes 8.5 2.0 - 12.0 05/18 [facility] HEMATOLOGY Segs-Bands # 3.8 1.5 - 8.1 05/18 [facility] [place] HEMATOLOGY Basophils 0.6 0.0 - 1.0 05/18 [facility] HEMATOLOGY Lymphocytes 2.2 1.0 - 5.5 09[place] /2014 [facility] HEMATOLOGY Eosinophils 2.6 0.0 - 4.0 05/18 [place]2014 [facility] HEMATOLOGY Eosinophils 0.2 0.0 - 0.5 05/18 [place] # /2014 [facility] HEMATOLOGY Monocytes # 0.6 0.0 - 0.8 05/[place] /2014 [facility] IMMUNOLOGY [place]-Hep C Positive Negative 05/18 [facility] as Ab *NA* /2014 [facility] (05/18/15 1:26 PM) Center IMMUNOLOGY [place] HCV [id number] 05/18 [facility] RNA Virload /2014 [facility] IMMUNOLOGY [place] HCV 5.5 05/18 [facility] RNA Log10 [facility] CARDIAC Troponin-I <0.02 0.00 - 05/09 [facility] ENZYMES 0.40 [facility] CHEM PANEL eGFR 90 05/09 Result Comment: The [facility] eGFR is Center calculated using the CKD-EPI [...] PANEL CO2 28 24 - 32 05/09 [facility] CHEM PANEL Calcium Lvl 9.6 8.5 - 10.5 05/09 [place] [facility] CHEM PANEL Chloride Lvl 105 95 - 109 05/09 [facility] CHEM PANEL Creatinine 0.8 0.5 - 1.4 05/09 [facility] Lvl /2014 [facility] CHEM PANEL Sodium Lvl 139 135 - 145 05/09 [facility] CHEM PANEL Potassium 3.7 3.5 - 5.1 05/09 [facility] Lvl /2014 [facility] CHEM PANEL Glucose Lvl 102 70 - 99 05/09 [facility] CHEM PANEL BUN 7 7 - 22 05/09 [facility] CHEM PANEL AGAP 9.7 10.0 - 05/09 [place] 20.0 /2014 [facility] HEMATOLOGY RDW 14.4 11.5 - 09 [place] 14.5 /2014 [facility] HEMATOLOGY MCHC 32.5 32.0 - 09 [place] 36.0 /2014 [facility] HEMATOLOGY MCH 28.7 27.0 - 09 [place] 31.0 /2014 [facility] HEMATOLOGY Platelet 202 133 - 450 09 [facility] HEMATOLOGY MPV 7.6 7.4 - 10.4 05/09 [facility] HEMATOLOGY MCV 88.2 80.0 - 05/09 [place] 98.0 /2014 [facility] HEMATOLOGY Hct 41.9 36.0 - 05/09 [place] 48.0 /2014 [facility] HEMATOLOGY RBC 4.75 4.20 - 05/09 [place] 5.40 /2014 [facility] HEMATOLOGY Hgb 13.6 12.0 - 05/09 [place] 16.0 /2014 [facility] HEMATOLOGY WBC 5.6 3.7 - 10.4 05/09 [facility] HEMATOLOGY Lymphocytes 2.1 1.0 - 5.5 05/09 [place] # /2014 [facility] HEMATOLOGY Basophils # 0.1 0.0 - 0.2 05/09 s [facility] HEMATOLOGY Eosinophils 0.2 0.0 - 0.5 05/09 [place] # /2014 [facility] HEMATOLOGY Monocytes # 0.4 0.0 - 0.8 05/09 s [facility] HEMATOLOGY Segs 50.8 45.0 - 05/09 [place] 75.0 /2014 [facility] HEMATOLOGY Eosinophils 2.8 0.0 - 4.0 05/09 s [facility] HEMATOLOGY Segs-Bands # 2.9 1.5 - 8.1 05/09 [facility] HEMATOLOGY Basophils 1.1 0.0 - 1.0 05/09 [facility] HEMATOLOGY Monocytes 7.7 2.0 - 12.0 05/09 [facility] HEMATOLOGY Lymphocytes 37.6 20.0 - 05/09 [facility] 40.0 [facility] CARDIAC Troponin-I <0.02 0.00 - 05/02 [facility] ENZYMES 0. [facility] CHEM PANEL Phosphorus 3.2 2.5 - 4.5 05/02 [facility] CHEM PANEL Magnesium 2.1 1.8 - 2.4 05/02 [facility] ELECTROLYT AGAP 12.4 10.0 - 05/02 [facility] ES 20.0 [facility] ELECTROLYT eGFR 68 05/02 Result [facility] Comment: The [facility] eGFR is Center calculated using the CKD-EPI [...] Chloride Lvl 104 95 - 109 05/02 [facility] ELECTROLYT Sodium Lvl 141 135 - 145 05/02 [facility] ELECTROLYT CO2 28 24 - 32 05/02 [facility] ELECTROLYT Calcium Lvl 8.8 8.5 - 10.5 05/02 [place] [facility] ELECTROLYT Potassium 3.4 3.5 - 5.1 05/02 [facility] ELECTROLYT Creatinine 0.9 0.5 - 1.4 05/02 [facility] ELECTROLYT Glucose Lvl 92 70 - 99 05/02 [facility] ELECTROLYT BUN 6 7 - 22 05/02 [facility] HEMATOLOGY MPV 8.0 7.4 - 10.4 05/02 MH [facility] HEMATOLOGY RDW 14.1 11.5 - 05/02 [place] 14.5 /2014 [facility] HEMATOLOGY Platelet 212 133 - 450 09 [facility] HEMATOLOGY MCHC 32.6 32.0 - 05/02 [place] 36.0 /2014 [facility] HEMATOLOGY WBC 8.0 3.7 - 10.4 05/02 [facility] HEMATOLOGY Hct 40.2 36.0 - 05/02 [place] 48.0 /2014 [facility] HEMATOLOGY MCV 87.4 80.0 - 05/02 [place] 98.0 /2014 [facility] HEMATOLOGY Hgb 13.1 12.0 - 05/02 [place] 16.0 /2014 [facility] HEMATOLOGY RBC 4.60 4.20 - 05/02 [place] 5.40 /2014 [facility] HEMATOLOGY MCH 28.5 27.0 - 05/02 [place] 31.0 /2014 [facility] HEMATOLOGY Lymphocytes 26.3 20.0 - 05/02 [place] 40.0 /2014 [facility] HEMATOLOGY Segs 60.9 45.0 - 05/02 [place] 75.0 /2014 [facility] HEMATOLOGY Basophils 1.0 0.0 - 1.0 05/02 [facility] HEMATOLOGY Eosinophils 3.0 0.0 - 4.0 05/02 s /2014 [facility] HEMATOLOGY Monocytes 8.8 2.0 - 12.0 05/02 [facility] HEMATOLOGY Monocytes # 0.7 0.0 - 0.8 05/02 s /2014 [facility] HEMATOLOGY Eosinophils 0.2 0.0 - 0.5 05/02 [place] # /2014 [facility] HEMATOLOGY Lymphocytes 2.1 1.0 - 5.5 05/02 [place] # /2014 [facility] HEMATOLOGY Segs-Bands # 4.9 1.5 - 8.1 05/02 [place] /2014 [facility] HEMATOLOGY Basophils # 0.1 0.0 - 0.2 05/02 a s [facility] URINE AND UA Nitrite Negative Negative 05/02 [facility] STOOL (05/02/15 4:38 PM) /2014 [facility] URINE AND UA WBC 0-2 /HPF None Seen 05/02 [facility] STOOL /HPF /2014 [facility] URINE AND UA Leuk Est Moderate Negative 05/02 [facility] STOOL *ABN* /2014 [facility] (05/02/15 4:38 PM) [place] URINE AND UA RBC None Seen 0 - 2 05/02 [facility] (05/02/15 4:38 PM) /2014 [facility] URINE AND UA Sq Epi Occasional Few /LPF 05/02 [facility] STOOL /LPF [facility] URINE AND UA Bacteria None Seen None Seen 05/02 [place] [facility] (05/02/15 4:38 PM) [facility] URINE AND UA Mucus Rare /LPF None Seen 05/02 [facility] STOOL /LPF /2014 [facility] URINE AND UA Glucose Negative Negative 05/02 [facility] (05/02/15 4:38 PM) /2014 [facility] URINE AND UA Ketones Negative Negative 05/02 [facility] *NA* /2014 [facility] (05/02/15 4:38 PM) [place] URINE AND UA 0.2 0.1 - 1.0 05/02 [facility] Urobilinogen /2014 [facility] URINE AND UA Blood Negative Negative 05/02 [facility] (05/02/15 4:38 PM) /2014 [facility] URINE AND UA Bili Negative Negative 05/02 [facility] *NA* /2014 [facility] (05/02/15 4:38 PM) [place] URINE AND UA Color Yellow Yellow 05/02 [facility] *NA* /2014 [facility] (05/02/15 4:38 PM) [place] URINE AND UA pH 6.0 5.0 - 8.0 05/02 [facility] URINE AND UA Turbidity Slight Cloudy Clear 05/02 [facility] (05/02/15 4:38 PM) [facility] URINE AND UA Protein Negative Negative 05/02 [facility] (05/02/15 4:38 PM) [facility] URINE AND UA Spec Grav 1.006 <=1.030 05/02 [facility] CHEM PANEL Lipase Lvl 188 73 - 393 03/24 [facility] CHEM PANEL eGFR 106 03/24 Result Comment: The [facility] eGFR is calculated using the CKD-EPI formula. [...] PANEL Creatinine 0.7 0.5 - 1.4 03/24 [facility] CHEM PANEL BUN 4 7 - 22 03/24 [facility] CHEM PANEL Potassium 3.2 3.5 - 5.1 03/24 [facility] [place] CHEM PANEL Sodium Lvl 142 135 - 145 03/24 [facility] CHEM PANEL Glucose Lvl 91 70 - 99 03/24 [facility] CHEM PANEL Albumin Lvl 3.5 3.5 - 5.0 03/24 [facility] CHEM PANEL Total 6.6 6.4 - 8.4 03/24 [facility] CHEM PANEL Chloride Lvl 107 95 - 109 03/24 [facility] CHEM PANEL Calcium Lvl 9.1 8.5 - 10.5 03/24 [place] CHEM PANEL CO2 27 24 - 32 03/24 [place] CHEM PANEL AGAP 11.2 10.0 - 03/24 MH 20.0 [facility] [place] CHEM PANEL AST 21 0 - 37 03/24 [facility] CHEM PANEL ALT 34 0 - 65 03/24 [facility] CHEM PANEL Bili Total 0.6 0.2 - 1.3 03/24 [facility] CHEM PANEL Alk Phos 95 39 - 136 03/24 [facility] CHEM PANEL B/C Ratio 6 6 - 25 03/24 [facility] CHEM PANEL A/G Ratio 1.1 0.7 - 1.6 03/24 [facility] CHEM PANEL Globulin 3.1 2.0 - 4.0 03/24 [facility] HEMATOLOGY Monocytes 11.3 2.0 - 12.0 03/24 [facility] HEMATOLOGY Lymphocytes 27.1 20.0 - 07 MH 40.0 /2014 [facility] HEMATOLOGY Eosinophils 5.9 0.0 - 4.0 03/24 [facility] HEMATOLOGY Segs-Bands # 3.3 1.5 - 8.1 03/24 /2014 [facility] HEMATOLOGY Basophils 0.7 0.0 - 1.0 03/24 /2014 [facility] HEMATOLOGY Segs 55.0 45.0 - 03/24 MH 75.0 /2014 [facility] HEMATOLOGY Monocytes # 0.7 0.0 - 0.8 03/24 /2014 [facility] HEMATOLOGY Lymphocytes 1.6 1.0 - 5.5 03/24 [facility] # /2014 [facility] [place] HEMATOLOGY Eosinophils 0.4 0.0 - 0.5 03/24 MH # /2014 [facility] [place] HEMATOLOGY RBC 4.21 4.20 - 03/24 MH 5.40 /2014 [facility] HEMATOLOGY WBC 5.9 3.7 - 10.4 03/24 /2014 [facility] HEMATOLOGY Platelet 204 133 - 450 03/24 /2014 [facility] HEMATOLOGY MCHC 32.4 32.0 - 03/24 36.0 /2014 [facility] HEMATOLOGY RDW 14.2 11.5 - 03/24 14.5 [facility] MPV 8.6 7.4 - 10.4 03/24 /2014 [facility] Hct 37.2 36.0 - 03/24 MH 48.0 /2014 [facility] [place] HEMATOLOGY MCV 88.3 80.0 - 03/24 98.0 /2014 [facility] HEMATOLOGY Hgb 12.1 12.0 - 03/24 MH 16.0 [facility] MCH 28.6 27.0 - 03/24 31.0 /2014 [facility] URINE AND Occult Bld Negative Negative 03/23 [facility] (03/23/15 1:14 PM) /2014 [facility] est CARDIAC CK MB 0.8 0.5 - 3.6 03/23 ENZYMES /2014 [facility] CARDIAC Total CK 70 12 - 191 03/23 ENZYMES /2014 [facility] CARDIAC CK MB Index 1.1 0.0 - 2.5 03/23 ENZYMES [facility] CHEM PANEL eGFR 106 03/23 Result Comment: The [facility] eGFR is calculated using the CKD-EPI formula. [...] PANEL CO2 27 24 - 32 03/23 [facility] CHEM PANEL Calcium Lvl 9.2 8.5 - 10.5 03/23 [facility] CHEM PANEL Chloride Lvl 108 95 - 109 03/23 [facility] CHEM PANEL Sodium Lvl 142 135 - 145 03/23 [facility] CHEM PANEL Potassium 3.5 3.5 - 5.1 03/23 Lvl /2014 [facility] CHEM PANEL Creatinine 0.7 0.5 - 1.4 03/23 Lvl /2014 [facility] CHEM PANEL BUN 8 7 - 22 03/23 [facility] CHEM PANEL Glucose Lvl 101 70 - 99 03/23 [facility] CHEM PANEL AGAP 10.5 10.0 - 03/23 MH 20.0 [facility] HEMATOLOGY Lymphocytes 1.3 1.0 - 5.5 03/23 MH # /2014 [facility] HEMATOLOGY Segs-Bands # 3.4 1.5 - 8.1 03/23 [facility] HEMATOLOGY Basophils 0.6 0.0 - 1.0 03/23 [facility] HEMATOLOGY Eosinophils 4.0 0.0 - 4.0 03/23 [facility] HEMATOLOGY Eosinophils 0.2 0.0 - 0.5 03/23 # /2014 [facility] HEMATOLOGY Monocytes # 0.6 0.0 - 0.8 03/23 [facility] HEMATOLOGY Monocytes 11.0 2.0 - 12.0 03/23 [facility] HEMATOLOGY Lymphocytes 23.6 20.0 - 03/23 MH 40.0 /2014 [facility] HEMATOLOGY Segs 60.8 45.0 - 03/23 MH 75.0 [facility] HEMATOLOGY MPV 8.3 7.4 - 10.4 03/23 [facility] HEMATOLOGY Platelet 196 133 - 450 03/23 [facility] HEMATOLOGY RDW 14.6 11.5 - 03/23 MH 14.5 [facility] HEMATOLOGY MCV 88.0 80.0 - 03/23 MH 98.0 /2014 [facility] HEMATOLOGY MCH 28.7 27.0 - 03/23 MH 31.0 /2014 [facility] HEMATOLOGY Hct 34.7 36.0 - 03/23 MH 48.0 /2014 [facility] HEMATOLOGY MCHC 32.6 32.0 - 03/23 MH 36.0 /2014 [facility] HEMATOLOGY Hgb 11.3 12.0 - 03/23 MH 16.0 /2014 [facility] HEMATOLOGY RBC 3.94 4.20 - 03/23 MH 5.40 /2014 [facility] HEMATOLOGY WBC 5.6 3.7 - 10.4 03/23 [facility] CARDIAC CK MB Index 1.6 0.0 - 2.5 03/22 EN[facility]ES [facility] CARDIAC CK MB 1.0 0.5 - 3.6 03/22 ENZYMES [facility] CARDIAC Total CK 64 12 - 191 03/22 ENZYMES [facility] CHEM PANEL eGFR 111 03/22 Result Comment: The [facility] eGFR is calculated using the CKD-EPI formula. [...] Calcium Lvl 8.7 8.5 - 10.5 03/22 [facility] CHEM PANEL Sodium Lvl 144 135 - 145 03/22 [facility] CHEM PANEL Potassium 3.9 3.5 - 5.1 03/22 MH Lvl [facility] CHEM PANEL Chloride Lvl 112 95 - 109 03/22 [facility] CHEM PANEL CO2 27 24 - 32 03/22 [facility] CHEM PANEL Glucose Lvl 94 70 - 99 03/22 [facility] CHEM PANEL BUN 8 7 - 22 03/22 [facility] CHEM PANEL Creatinine 0.6 0.5 - 1.4 03/22 Lvl /2014 [facility] CHEM PANEL AGAP 8.9 10.0 - 03/22 MH 20.0 /2014 [facility] HEMATOLOGY Eosinophils 0.2 0.0 - 0.5 03/22 MH # /2015 [facility] HEMATOLOGY Monocytes # 0.5 0.0 - 0.8 03/22 /2014 [facility] HEMATOLOGY Basophils 0.9 0.0 - 1.0 03/22 /2014 [facility] HEMATOLOGY Monocytes 11.2 2.0 - 12.0 03/22 /2014 [facility] HEMATOLOGY Segs-Bands # 2.1 1.5 - 8.1 03/22 MH /2014 [facility] HEMATOLOGY Eosinophils 3.7 0.0 - 4.0 03/22 [facility] HEMATOLOGY Lymphocytes 1.6 1.0 - 5.5 03/22 MH # /2014 [facility] HEMATOLOGY Segs 48.6 45.0 - 03/22 MH 75.0 /2014 [facility] [place] HEMATOLOGY Lymphocytes 35.6 20.0 - 03/22 MH 40.0 /2014 [facility] HEMATOLOGY MPV 8.9 7.4 - 10.4 03/22 /2014 [facility] HEMATOLOGY WBC 4.4 3.7 - 10.4 03/22 MH /2014 [facility] HEMATOLOGY MCH 29.9 27.0 - 03/22 MH 31.0 /2014 [facility] [place] HEMATOLOGY MCV 86.5 80.0 - 03/22 MH 98.0 /2014 [facility] [place] HEMATOLOGY MCHC 34.6 32.0 - 03/22 MH 36.0 /2014 [facility] [place] HEMATOLOGY Hgb 11.7 12.0 - 03/22 MH 16.0 /2014 [facility] HEMATOLOGY RBC 3.92 4.20 - 03/22 MH 5.40 /2014 [facility] [place] HEMATOLOGY Hct 33.9 36.0 - 03/22 MH 48.0 /2014 [facility] HEMATOLOGY RDW 14.6 11.5 - 03/22 MH 14.5 /2014 [facility] HEMATOLOGY Platelet 176 133 - 450 03/22 [facility] CARDIAC CK MB Index 1.6 0.0 - 2.5 03/22 ENZYMES /2014 [facility] CARDIAC Total CK 77 12 - 191 03/22 ENZYMES /2014 [facility] CARDIAC CK MB 1.2 0.5 - 3.6 03/22 ENZYMES /2014 [facility] CHEM PANEL Lactic Acid 1.4 0.5 - 2.2 03/22 Lvl /2014 [facility] CARDIAC Troponin-I <0.02 0.00 - 03/21 MH ENZYMES 0.40 /2014 [facility] CHEM PANEL Globulin 3.3 2.0 - 4.0 03/21 MH /2014 [facility] CHEM PANEL A/G Ratio 1.1 0.7 - 1.6 03/21 /2014 [facility] CHEM PANEL B/C Ratio 16 6 - 25 03/21 [facility] CHEM PANEL Alk Phos 105 39 - 136 03/21 MH /2014 [facility] CHEM PANEL AST 25 0 - 37 03/21 [facility] CHEM PANEL Bili Total 0.5 0.2 - 1.3 03/21 [facility] CHEM PANEL ALT 32 0 - 65 03/21 [facility] CHEM PANEL Albumin Lvl 3.7 3.5 - 5.0 03/21 [facility] CHEM PANEL Total 7.0 6.4 - 8.4 03/21 MH Protein /2014 [facility] HEMATOLOGY Basophils # 0.0 0.0 - 0.2 03/21 [facility] HEMATOLOGY INR 1.04 0.85 - 03/21 [facility] 1.17 /2014 [facility] HEMATOLOGY PT 13.6 12.0 - 03/21 [facility] 14.7 /2014 [facility] HEMATOLOGY PTT 35.2 22.9 - 03/21 [facility] 35.8 /2014 [facility] CARDIAC BNP 6 <=100 03/21 [facility] ENZYMES pg/mL /2014 [facility] CARDIAC Troponin-I <0.02 0.00 - 03/11 [facility] ENZYMES 0.40 /2014 [facility] CARDIAC BNP 31 <=100 03/11 [facility] ENZYMES pg/mL /2014 [facility] CARDIAC CK MB 0.8 0.5 - 3.6 03/11 [facility] ENZYMES /2014 [facility] CARDIAC Total CK 70 12 - 191 03/11 [facility] ENZYMES /2014 [facility] CARDIAC CK MB Index 1.1 0.0 - 2.5 03/11 [facility] ENZYMES /2014 [facility] CHEM PANEL eGFR 106 03/11 Result Comment: The [facility] eGFR is calculated using the CKD-EPI formula. [...] Alk Phos 99 39 - 136 03/11 [facility] CHEM PANEL Bili Total 0.6 0.2 - 1.3 03/11 [facility] CHEM PANEL B/C Ratio 11 6 - 25 03/11 [facility] CHEM PANEL AGAP 9.4 10.0 - 03/11 [facility] 20.0 [facility] CHEM PANEL Globulin 3.1 2.0 - 4.0 03/11 [facility] CHEM PANEL A/G Ratio 1.1 0.7 - 1.6 03/11 [facility] CHEM PANEL Glucose Lvl 73 70 - 99 03/11 [facility] CHEM PANEL BUN 8 7 - 22 03/11 [facility] CHEM PANEL Creatinine 0.7 0.5 - 1.4 03/11 [facility] CHEM PANEL Sodium Lvl 143 135 - 145 03/11 [facility] CHEM PANEL Potassium 3.4 3.5 - 5.1 03/11 [place] CHEM PANEL CO2 28 24 - 32 03/11 [facility] CHEM PANEL Chloride Lvl 109 95 - 109 03/11 [facility] CHEM PANEL Calcium Lvl 8.9 8.5 - 10.5 03/11 [facility] CHEM PANEL Total 6.5 6.4 - 8.4 03/11 [facility] CHEM PANEL Albumin Lvl 3.4 3.5 - 5.0 03/11 [facility] CHEM PANEL ALT 30 0 - 65 03/11 [facility] CHEM PANEL AST 21 0 - 37 03/11 [facility] HEMATOLOGY RDW 15.1 11.5 - 03/11 MH 14. [facility] HEMATOLOGY MCHC 33.1 32.0 - 03/11 MH 36.0 [facility] HEMATOLOGY Platelet 190 133 - 450 03/11 [facility] HEMATOLOGY MPV 8.1 7.4 - 10.4 03/11 [facility] HEMATOLOGY Hct 34.6 36.0 - 03/11 MH 48.0 /2014 [facility] HEMATOLOGY Hgb 11.5 12.0 - 03/11 MH 16.0 /2014 [facility] HEMATOLOGY MCH 28.8 27.0 - 03/11 MH 31.0 /2014 [facility] HEMATOLOGY MCV 86.9 80.0 - 03/11 MH 98.0 /2014 [facility] HEMATOLOGY RBC 3.98 4.20 - 03/11 MH 5.40 /2014 [facility] HEMATOLOGY WBC 6.5 3.7 - 10.4 07/ /2014 [facility] HEMATOLOGY PTT 32.8 22.9 - 03/11 MH 35.8 /2014 [facility] HEMATOLOGY PT 13.3 12.0 - 03/11 MH 14.7 /2014 [facility] HEMATOLOGY INR 1.01 0.85 - 03/11 MH 1.17 /2014 [facility] HEMATOLOGY Basophils # 0.0 0.0 - 0.2 03/11 /2014 [facility] HEMATOLOGY Segs-Bands # 3.7 1.5 - 8.1 03/11 /2014 [facility] HEMATOLOGY Eosinophils 0.2 0.0 - 0.5 03/11 # /2014 [facility] HEMATOLOGY Monocytes # 0.6 0.0 - 0.8 03/11 /2014 [facility] HEMATOLOGY Lymphocytes 1.9 1.0 - 5.5 03/11 MH # /2014 [facility] HEMATOLOGY Segs 56.9 45.0 - 03/11 MH 75.0 /2014 [facility] HEMATOLOGY Eosinophils 2.7 0.0 - 4.0 03/11 /2014 [facility] HEMATOLOGY Basophils 0.4 0.0 - 1.0 03/11 /2014 [facility] HEMATOLOGY Monocytes 9.9 2.0 - 12.0 03/11 /2014 [facility] HEMATOLOGY Lymphocytes 30.1 20.0 - 03/11 40.0 /2014 [facility] CARDIAC Troponin-I <0.02 0.00 - 07/08 [place] ENZYMES 0.40 /2014 [facility] CARDIAC Troponin-I <0.02 0.00 - 07/08 [place] ENZYMES 0.40 /2014 [facility] CHEM PANEL A/G Ratio 1.1 0.7 - 1.6 07/ /2014 [facility] CHEM PANEL Globulin 3.5 2.0 - 4.0 07/08 /2014 [facility] CHEM PANEL Bili 0.5 0.0 - 1.0 07/08 [place] Indirect /2014 [facility] CHEM PANEL Bili Direct 0.1 0.0 - 0.3 07/ [facility] CHEM PANEL ALT 25 0 - 65 03/05 [facility] CHEM PANEL AST 21 0 - 37 03/05 [facility] CHEM PANEL Albumin Lvl 3.7 3.5 - 5.0 03/05 [facility] CHEM PANEL Alk Phos 119 39 - 136 03/05 [facility] CHEM PANEL Bili Total 0.6 0.2 - 1.3 03/05 [facility] CHEM PANEL Total 7.2 6.4 - 8.4 03/05 [facility] Protein [facility] CHEM PANEL Lipase Lvl 221 73 - 393 03/05 [facility] ELECTROLYT AGAP 12.6 10.0 - 07 [facility] ES 20.0 /2014 [facility] ELECTROLYT eGFR 78 03/05 <sup>1</sup>R [facility] Medical Comment: The Center eGFR is calculated [...] Calcium Lvl 9.6 8.5 - 10.5 03/05 [facility] ELECTROLYT CO2 29 24 - 32 03/05 [facility] ELECTROLYT Potassium 3.6 3.5 - 5.1 03/05 [facility] ELECTROLYT Chloride Lvl 103 95 - 109 03/05 [facility] ELECTROLYT Sodium Lvl 141 135 - 145 03/05 [facility] ELECTROLYT Creatinine 0.8 0.5 - 1.4 07 [facility] ES Lvl /2014 [facility] ELECTROLYT BUN 9 7 - 22 03/05 [facility] ELECTROLYT Glucose Lvl 96 70 - 99 03/05 <sup>2</sup>I [facility] nterpretive Medical Data: Adult Center reference range values reflect the clinical guidelines
of the [place] [employer]. HEMATOLOGY Lymphocytes 2.6 1.0 - 5.5 03[place] /2014 [facility] HEMATOLOGY Monocytes # 0.9 0.0 - 0.8 03/05 [facility] HEMATOLOGY Basophils 0.7 0.0 - 1.0 / [facility] HEMATOLOGY Eosinophils 1.7 0.0 - 4.0 03/05 [facility] HEMATOLOGY Segs-Bands # 6.7 1.5 - 8.1 03/05 [facility] HEMATOLOGY Lymphocytes 25.0 20.0 - 0708 [place] 40.0 [facility] HEMATOLOGY Segs 64.3 45.0 - 0708 [place] 75.0 [facility] HEMATOLOGY Monocytes 8.3 2.0 - 12.0 03/05 [facility] HEMATOLOGY Eosinophils 0.2 0.0 - 0.5 03/05 s # [facility] HEMATOLOGY Basophils # 0.1 0.0 - 0.2 03/05 [facility] HEMATOLOGY MCV 87.7 80.0 - 07/08 98.0 /2014 [facility] HEMATOLOGY Hct 39.7 36.0 - 0708 [place] 48.0 [facility] HEMATOLOGY MPV 8.0 7.4 - 10.4 03/05 [facility] HEMATOLOGY Platelet 216 133 - 450 07 [facility] HEMATOLOGY RDW 14.6 11.5 - 07/08 [place] 14.5 [facility] HEMATOLOGY MCHC 32.4 32.0 - 07/08 [place] 36.0 [facility] HEMATOLOGY MCH 28.4 27.0 - 07/08 [place] 31.0 /2014 [facility] HEMATOLOGY WBC 10.5 3.7 - 10.4 07/ [facility] HEMATOLOGY RBC 4.53 4.20 - 07/08 MH [place] 5.40 /2014 [facility] HEMATOLOGY Hgb 12.9 12.0 - 07/08 [facility] 16.0 /2015 [facility] CHEM PANEL Magnesium 2.0 1.8 - 2.4 02/25 MH Lvl /2014 [facility] CHEM PANEL Phosphorus 3.6 2.5 - 4.5 02/25 [facility] CHEM PANEL eGFR 106 02/25 <sup>1</sup>R esult [facility] Comment: The eGFR is calculated using the [...] PANEL AST 17 0 - 37 02/25 [facility] CHEM PANEL Albumin Lvl 3.3 3.5 - 5.0 02/25 [facility] CHEM PANEL A/G Ratio 1.1 0.7 - 1.6 02/25 [facility] CHEM PANEL Total 6.3 6.4 - 8.4 02/25 [facility] CHEM PANEL ALT 21 0 - 65 02/25 [facility] CHEM PANEL Globulin 3.0 2.0 - 4.0 02/25 [facility] CHEM PANEL Bili Total 0.5 0.2 - 1.3 02/25 [facility] CHEM PANEL Alk Phos 119 39 - 136 02/25 [facility] CHEM PANEL B/C Ratio 11 6 - 25 02/25 [facility] CHEM PANEL Calcium Lvl 9.1 8.5 - 10.5 02/25 [facility] CHEM PANEL Glucose Lvl 99 70 - 99 02/25 <sup>3</sup>I nterpretive [facility] Data: Adult reference range values reflect the clinical guidelines
of the [place] [employer]. CHEM PANEL BUN 8 7 - 22 02/25 [facility] CHEM PANEL Sodium Lvl 140 135 - 145 02/25 [facility] CHEM PANEL Creatinine 0.7 0.5 - 1.4 02/25 Lv [facility] CHEM PANEL AGAP 8.9 10.0 - 02/25 MH 20.0 /2014 [facility] CHEM PANEL Chloride Lvl 107 95 - 109 02/25 [facility] CHEM PANEL CO2 28 24 - 32 02/25 [facility] CHEM PANEL Potassium 3.9 3.5 - 5.1 02/25 Lvl [facility] HEMATOLOGY Platelet 216 133 - 450 02/25 [facility] HEMATOLOGY MPV 8.8 7.4 - 10.4 02/25 [facility] HEMATOLOGY RDW 14.9 11.5 - 02/25 MH 14. /2014 [facility] HEMATOLOGY WBC 5.9 3.7 - 10.4 02/25 [facility] HEMATOLOGY MCV 88.4 80.0 - 02/25 MH 98.0 /2014 [facility] HEMATOLOGY Hct 37.2 36.0 - 02/25 MH 48.0 /2014 [facility] HEMATOLOGY MCH 28.6 27.0 - 02/25 MH 31.0 /2014 [facility] HEMATOLOGY MCHC 32.4 32.0 - 02/25 MH 36.0 /2014 [facility] HEMATOLOGY RBC 4.21 4.20 - 02/25 MH 5.40 /2014 [facility] HEMATOLOGY Hgb 12.0 12.0 - 02/25 MH 16.0 /2014 [facility] HEMATOLOGY Lymphocytes 31.9 20.0 - 02/25 MH 40.0 /2014 [facility] HEMATOLOGY Basophils 0.8 0.0 - 1.0 02/25 [facility] HEMATOLOGY Segs-Bands # 3.1 1.5 - 8.1 02/25 [facility] HEMATOLOGY Monocytes 11.6 2.0 - 12.0 02/25 [facility] HEMATOLOGY Eosinophils 2.9 0.0 - 4.0 02/25 [facility] HEMATOLOGY Segs 52.8 45.0 - 02/25 MH 75.0 /2014 [facility] HEMATOLOGY Monocytes # 0.7 0.0 - 0.8 02/25 [facility] HEMATOLOGY Lymphocytes 1.9 1.0 - 5.5 02/25 MH /2014 [facility] HEMATOLOGY Eosinophils 0.2 0.0 - 0.5 02/25 MH # /2014 [facility] CARDIAC Total CK 74 12 - 191 02/25 [facility] ENZYMES /2014 [facility] CARDIAC CK MB Index 1.2 0.0 - 2.5 02/25 MH ENZYMES /2014 [facility] CARDIAC Troponin-I <0.02 0.00 - 02/25 [facility] ENZYMES 0.40 [facility] CARDIAC CK MB 0.9 0.5 - 3.6 02/25 MH ENZYMES /2014 [facility] CARDIAC Troponin-I <0.02 0.00 - 02/24 [facility] ENZYMES 0.40 [facility] CARDIAC CK MB 0.7 0.5 - 3.6 02/24 MH ENZYMES /2014 [facility] CARDIAC Total CK 68 - 191 02/24 MH ENZYMES /2014 [facility] CARDIAC CK MB Index 1.0 0.0 - 2.5 02/24 MH ENZYMES /2014 [facility] CARDIAC CK MB Index 0.9 0.0 - 2.5 02/24 [facility] ENZYMES /2014 [facility] CARDIAC Troponin-I <0.02 0.00 - 02/24 [facility] ENZYMES 0.40 [facility] CARDIAC CK MB 0.7 0.5 - 3.6 02/24 MH ENZYMES /2014 [facility] CARDIAC Total CK 76 - 191 02/24 [facility] ENZYMES /2014 [facility] CHEM PANEL eGFR 90 02/24 <sup>2</sup>R esult [facility] Comment: The eGFR is calculated using the [...] PANEL Globulin 3.1 2.0 - 4.0 02/24 [facility] CHEM PANEL Alk Phos 128 39 - 136 02/24 [facility] CHEM PANEL Bili Total 0.3 0.2 - 1.3 02/24 [facility] CHEM PANEL A/G Ratio 1.1 0.7 - 1.6 02/24 [facility] CHEM PANEL AGAP 7.3 10.0 - 02/24 MH 20.0 /2014 [facility] CHEM PANEL B/C Ratio 12 6 - 25 02/24 [facility] CHEM PANEL Creatinine 0.8 0.5 - 1.4 02/24 MH l [facility] CHEM PANEL Sodium Lvl 140 135 - 145 02/24 [facility] CHEM PANEL Glucose Lvl 88 70 - 99 02/24 <sup>4</sup>I nterpretive [facility] Data: Adult reference range values reflect the clinical guidelines
of the [place] [employer]. CHEM PANEL Potassium 3.3 3.5 - 5.1 02/24 MH [facility] CHEM PANEL Chloride Lvl 106 95 - 109 02/24 [facility] CHEM PANEL BUN 10 7 - 22 02/24 [facility] CHEM PANEL AST 15 0 - 37 02/24 [facility] CHEM PANEL ALT 22 0 - 65 02/24 [facility] CHEM PANEL Calcium Lvl 8.9 8.5 - 10.5 02/24 [facility] CHEM PANEL CO2 30 24 - 32 02/24 [facility] CHEM PANEL Total 6.6 6.4 - 8.4 02/24 [facility] CHEM PANEL Albumin Lvl 3.5 3.5 - 5.0 02/24 [facility] HEMATOLOGY Segs 55.9 45.0 - 02/24 MH 75.0 [facility] HEMATOLOGY Lymphocytes 28.7 20.0 - 02/24 MH 40.0 [facility] HEMATOLOGY Segs-Bands # 3.7 1.5 - 8.1 02/24 [facility] HEMATOLOGY Basophils 0.7 0.0 - 1.0 02/24 [facility] HEMATOLOGY Lymphocytes 1.9 1.0 - 5.5 02/24 MH /2014 [facility] HEMATOLOGY Eosinophils 2.2 0.0 - 4.0 02/24 [facility] HEMATOLOGY Monocytes 12.5 2.0 - 12.0 02/24 [facility] HEMATOLOGY Basophils # 0.0 0.0 - 0.2 02/24 [facility] HEMATOLOGY Eosinophils 0.1 0.0 - 0.5 02/24 MH # /2015 [facility] HEMATOLOGY Monocytes # 0.8 0.0 - 0.8 02/24 MH /2014 [facility] HEMATOLOGY MPV 8.8 7.4 - 10.4 02/24 /2014 [facility] MCH 28.1 27.0 - 02/24 MH 31.0 /2014 [facility] HEMATOLOGY RDW 14.8 11.5 - 02/24 MH 14.5 /2014 [facility] MCHC 32.2 32.0 - 02/24 MH 36.0 /2014 [facility] Platelet 207 133 - 450 02/24 /2014 [facility] HEMATOLOGY Hgb 11.4 12.0 - 02/24 MH 16.0 /2014 [facility] HEMATOLOGY RBC 4.04 4.20 - 02/24 MH 5.40 /2014 [facility] WBC 6.5 3.7 - 10.4 02/24 /2014 [facility] Hct 35.3 36.0 - 02/24 MH 48.0 /2014 [facility] MCV 87.2 80.0 - 02/24 MH 98.0 /2014 [facility] CARDIAC BNP 6 <=100 02/17 <sup>5</sup>I ENZYMES pg/mL /2014 nterpretive [facility] Data: Elevated results are in line with increasing severity of
con gestive heart failure. Minor elevations between 100 and 300
may be seen with Myocardial Ischemia, Sodium retaining drugs,
an d compensated/t reated heart failure. CARDIAC Troponin-I <0.02 0.00 - 02/17 ENZYMES 0.40 /2014 [facility] CARDIAC CK MB 1.0 0.5 - 3.6 02/17 ENZYMES /2014 [facility] CARDIAC Total CK 77 12 - 191 02/17 ENZYMES /2014 [facility] CHEM PANEL Magnesium 1.8 1.8 - 2.4 02/17 Lvl /2014 [facility] CHEM PANEL eGFR 111 02/17 <sup>1</sup>R MH /2014 esult [facility] Comment: The eGFR is calculated using the [...] Chloride Lvl 111 95 - 109 02/17 [facility] CHEM PANEL Potassium 3.8 3.5 - 5.1 02/17 Lvl [facility] CHEM PANEL Sodium Lvl 144 135 - 145 02/17 [facility] CHEM PANEL Calcium Lvl 8.6 8.5 - 10.5 02/17 [facility] CHEM PANEL AGAP 11.8 10.0 - 02/17 MH 20.0 [facility] CHEM PANEL CO2 25 24 - 32 02/17 [facility] CHEM PANEL Creatinine 0.6 0.5 - 1.4 02/17 Lvl [facility] CHEM PANEL BUN 6 7 - 22 02/17 [facility] CHEM PANEL Glucose Lvl 72 70 - 99 02/17 <sup>3</sup>I nterpretive [facility] Data: Adult reference range values reflect the clinical guidelines
of the [place] [employer]. HEMATOLOGY Hgb 11.5 12.0 - 02/17 MH 16.0 [facility] LIPIDS HDL 51 >=61 mg/dL 02/17 [facility] LIPIDS VLDL 17 02/17 [facility] LIPIDS LDL 96 <=99 mg/dL 02/17 (Calculated) [facility] LIPIDS Chol 164 <=199 02/17 mg/dL /2014 [facility] LIPIDS Trig 84 <=149 02/17 mg/dL /2014 [facility] LIPIDS CHD Risk 3.22 3.90 - 02/17 MH 5.80 /2014 [facility] SPECIAL Hgb A1C 5.8 <=5.6 % 02/17 CHEMISTRY /2014 [facility] CARDIAC Troponin-I <0.02 0.00 - 02/17 ENZYMES 0.40 /2014 [facility] CARDIAC Total CK 92 12 - 191 02/17 ENZYMES /2014 [facility] CARDIAC CK MB 1.2 0.5 - 3.6 02/17 ENZYMES /2014 [facility] CARDIAC CK MB 1.2 0.5 - 3.6 02/16 ENZYMES /2014 [facility] CARDIAC CK MB Index 1.3 0.0 - 2.5 02/16 ENZYMES /2014 [facility] CARDIAC Total CK 93 12 - 191 02/16 ENZYMES /2014 [facility] CARDIAC Troponin-I <0.02 0.00 - 02/16 ENZYMES 0.40 /2014 [facility] CARDIAC BNP 4 <=100 02/16 <sup>6</sup>I ENZYMES pg/mL /2014 nterpretive [facility] Data: Elevated results are in line with increasing severity of
con gestive heart failure. Minor elevations between 100 and 300
may be seen with Myocardial Ischemia, Sodium retaining drugs,
an d compensated/t reated heart failure. CHEM PANEL Lipase Lvl 307 73 - 393 02/16 [facility] CHEM PANEL A/G Ratio 1.0 0.7 - 1.6 02/16 [facility] CHEM PANEL Globulin 3.6 2.0 - 4.0 02/16 [facility] CHEM PANEL Bili 0.4 0.0 - 1.0 02/16 [facility] CHEM PANEL Bili Direct 0.1 0.0 - 0.3 02/16 [facility] CHEM PANEL Bili Total 0.5 0.2 - 1.3 02/16 [facility] CHEM PANEL Total 7.3 6.4 - 8.4 02/16 Protein [facility] CHEM PANEL Alk Phos 150 39 - 136 02/16 [facility] CHEM PANEL AST 15 0 - 37 02/16 [facility] CHEM PANEL ALT 21 0 - 65 02/16 [facility] CHEM PANEL Albumin Lvl 3.7 3.5 - 5.0 02/16 [facility] CHEM PANEL Phosphorus 3.1 2.5 - 4.5 02/16 [facility] CHEM PANEL Magnesium 1.9 1.8 - 2.4 02/16 Lvl /2014 [facility] CHEM PANEL eGFR 90 02/16 <sup>2</sup>R esult [facility] Comment: The eGFR is calculated using the [...] Calcium Lvl 9.0 8.5 - 10.5 02/16 [facility] CHEM PANEL CO2 28 24 - 32 02/16 [facility] CHEM PANEL Chloride Lvl 107 95 - 109 02/16 [facility] CHEM PANEL Creatinine 0.8 0.5 - 1.4 02/16 [facility] CHEM PANEL BUN 11 7 - 22 02/16 [facility] CHEM PANEL Potassium 3.5 3.5 - 5.1 02/16 [facility] CHEM PANEL Sodium Lvl 139 135 - 145 02/16 [facility] CHEM PANEL Glucose Lvl 76 70 - 99 02/16 <sup>4</sup>I nterpretive [facility] Data: Adult reference range values reflect the clinical guidelines
of the [place] [employer]. CHEM PANEL AGAP 7.5 10.0 - 02/16 MH 20.0 [facility] HEMATOLOGY Eosinophils 3.3 0.0 - 4.0 02/16 [facility] HEMATOLOGY Monocytes 9.1 2.0 - 12.0 02/16 [facility] HEMATOLOGY Lymphocytes 28.9 20.0 - 02/16 MH 40.0 /2014 [facility] HEMATOLOGY Segs 58.3 45.0 - 02/16 MH 75.0 [facility] HEMATOLOGY Segs-Bands # 3.8 1.5 - 8.1 02/16 [facility] HEMATOLOGY Basophils 0.4 0.0 - 1.0 02/16 [facility] HEMATOLOGY Monocytes # 0.6 0.0 - 0.8 02/16 [facility] HEMATOLOGY Lymphocytes 1.9 1.0 - 5.5 02/16 MH /2014 [facility] HEMATOLOGY Eosinophils 0.2 0.0 - 0.5 02/16 # /2015 [facility] HEMATOLOGY Basophils # 0.0 0.0 - 0.2 02/16 /2014 [facility] HEMATOLOGY PTT 36.0 22.9 - 02/16 <sup>8</sup>I 35.8 /2014 nterpretive [facility] Data: Heparin Therapeutic Range: 57 - 92 Seconds HEMATOLOGY PT 12.9 12.0 - 02/16 14.7 /2014 [facility] HEMATOLOGY INR 0.97 0.85 - 02/16 <sup>7</sup>I 1.17 /2014 nterpretive [facility] Data: RECOMMENDED RANGES FOR PROTIME INR:
2.0-3.0 for most medical and surgical thromboemboli c states.
2.5-3.5 for artificial heart valves and recurrent embolism.<br/ >
INR SHOULD BE USED ONLY FOR PATIENTS ON STABLE ANTICOAGULANT THERAPY. HEMATOLOGY Platelet 225 133 - 450 02/16 /2014 [facility] RDW 14.7 11.5 - 02/16 14.5 /2014 [facility] HEMATOLOGY MPV 8.7 7.4 - 10.4 02/16 /2014 [facility] HEMATOLOGY MCHC 32.6 32.0 - 02/16 36.0 /2014 [facility] HEMATOLOGY Hct 39.5 36.0 - 02/16 48.0 /2014 [facility] HEMATOLOGY MCV 87.3 80.0 - 02/16 98.0 /2014 [facility] MCH 28.4 27.0 - 02/16 31.0 /2014 [facility] RBC 4.52 4.20 - 02/16 5.40 /2014 [facility] HEMATOLOGY Hgb 12.9 12.0 - 02/16 16.0 /2014 [facility] HEMATOLOGY WBC 6.5 3.7 - 10.4 02/16 /2014 [facility] MYOGLOBIN Myoglobin 46 25 - 72 02/16 /2014 [facility] CARDIAC BNP 15 <=100 12/22 <sup>3</sup>I ENZYMES pg/mL /2013 nterpretive [facility] Data: Elevated results are in line with increasing severity of
con gestive heart failure. Minor elevations between 100 and 300
may be seen with Myocardial Ischemia, Sodium retaining drugs,
an d compensated/t reated heart failure. CARDIAC Troponin-I <0.02 0.00 - 12/22 ENZYMES 0.40 /2013 [facility] CARDIAC Total CK 80 12 - 191 12/22 ENZYMES [facility] CARDIAC CK MB <0.5 0.5 - 3.6 12/22 ENZYMES [facility] CARDIAC CK MB Index <0.6 0.0 - 2.5 12/22 ENZYMES [facility] CHEM PANEL eGFR 112 12/22 <sup>1</sup>R esult [facility] Comment: The eGFR is calculated using the [...] PANEL Globulin 3.6 2.0 - 4.0 12/22 [facility] CHEM PANEL B/C Ratio 17 6 - 25 12/22 [facility] CHEM PANEL A/G Ratio 1.1 0.7 - 1.6 12/22 [facility] CHEM PANEL Glucose Lvl 101 70 - 99 12/22 <sup>2</sup>I nterpretive [facility] Data: Adult reference range values reflect the clinical guidelines
of the [place] [employer]. CHEM PANEL ALT 34 0 - 65 12/22 [facility] CHEM PANEL Albumin Lvl 3.9 3.5 - 5.0 12/22 [facility] CHEM PANEL Alk Phos 89 39 - 136 12/22 [facility] CHEM PANEL AST 22 0 - 37 12/22 [facility] CHEM PANEL Bili Total 0.6 0.2 - 1.3 12/22 [facility] CHEM PANEL AGAP 5.5 10.0 - 12/22 MH 20.0 /2013 [facility] CHEM PANEL Creatinine 0.6 0.5 - 1.4 12/22 [facility] CHEM PANEL BUN 10 7 - 22 12/22 [facility] CHEM PANEL Potassium 3.5 3.5 - 5.1 12/22 [facility] CHEM PANEL Sodium Lvl 140 135 - 145 12/22 [facility] CHEM PANEL Chloride Lvl 109 95 - 109 12/22 [facility] CHEM PANEL CO2 29 24 - 32 12/22 [facility] CHEM PANEL Total 7.5 6.4 - 8.4 12/22 [facility] CHEM PANEL Calcium Lvl 9.2 8.5 - 10.5 12/22 [facility] DRUG U Opiate Scr Negative Negative 12/22 SCREEN *NA* [facility] (12/22/13 4:17 PM) DRUG U Phencyc Negative Negative 12/22 SCREEN Scr *NA* [facility] (12/22/13 4:17 PM) DRUG UDS Note See Note 4 12/22 <sup>4</sup>I MH SCREEN *NA* nterpretive [facility] (12/22/13 4:17 PM) Data: Drugs reported as positive have not been confirmed by a second
il thod and should be used for medical [...] Negative Negative 12/22 SCREEN Scr *NA* /2013 [facility] (12/22/13 4:17 PM) DRUG U Keyla Scr Negative Negative 12/22 SCREEN *NA* [facility] (12/22/13 4:17 PM) DRUG U Amph Scr Negative Negative 12/22 SCREEN *NA* [facility] (12/22/13 4:17 PM) DRUG U Cannab Scr Negative Negative 12/22 SCREEN *NA* [facility] (12/22/13 4:17 PM) DRUG U Cocaine Negative Negative 12/22 SCREEN Scr *NA* [facility] (12/22/13 4:17 PM) HEMATOLOGY PTT 35.2 22.9 - 12/22 <sup>6</sup>I 35.8 /2013 nterpretive [facility] Data: Heparin Therapeutic Range: 57 - 92 Seconds HEMATOLOGY PT 12.2 12.0 - 12/22 14.7 [facility] HEMATOLOGY INR 0.91 0.85 - 12/22 <sup>5</sup>I 1.17 nterpretive [facility] Data: RECOMMENDED RANGES FOR PROTIME INR:
2.0-3.0 for most medical and surgical thromboemboli c states.
2.5-3.5 for artificial heart valves and recurrent embolism.<br/ >
INR SHOULD BE USED ONLY FOR PATIENTS ON STABLE ANTICOAGULANT THERAPY. HEMATOLOGY MPV 8.4 7.4 - 10.4 12/22 [facility] HEMATOLOGY MCH 29.2 27.0 - 12/22 31.0 /2013 [facility] HEMATOLOGY MCHC 33.4 32.0 - 12/22 36.0 /2013 [facility] HEMATOLOGY RDW 14.5 11.5 - 12/22 14.5 [facility] HEMATOLOGY Platelet 219 133 - 450 12/22 [facility] HEMATOLOGY Hct 41.6 36.0 - 12/22 48.0 /2013 [facility] HEMATOLOGY MCV 87.5 81.0 - 12/22 99.0 /2013 [facility] HEMATOLOGY RBC 4.76 4.20 - 12/22 5.40 /2013 [facility] HEMATOLOGY Hgb 13.9 12.0 - 12/22 MH 16.0 /2014 [facility] HEMATOLOGY WBC 8.5 3.7 - 10.4 12/22 /2013 [facility] HEMATOLOGY Eosinophils 0.2 0.0 - 0.5 12/22 MH # /2014 [facility] HEMATOLOGY Basophils # 0.0 0.0 - 0.2 12/22 /2013 [facility] HEMATOLOGY Segs 66.1 45.0 - 12/22 MH 75.0 /2013 [facility] HEMATOLOGY Monocytes 6.1 2.0 - 12.0 12/22 /2013 [facility] HEMATOLOGY Lymphocytes 25.0 20.0 - 12/22 MH 40.0 /2014 [facility] HEMATOLOGY Eosinophils 2.4 0.0 - 4.0 12/22 /2013 [facility] HEMATOLOGY Basophils 0.4 0.0 - 1.0 12/22 /2013 [facility] HEMATOLOGY Lymphocytes 2.1 1.0 - 5.5 12/22 MH # /2013 [facility] HEMATOLOGY Monocytes # 0.5 0.0 - 0.8 12/22 /2013 [facility] HEMATOLOGY Segs-Bands # 5.6 1.5 - 8.1 12/22 /2013 [facility] URINE AND UA WBC 3-5 /HPF None Seen 12/22 STOOL /HPF /2013 [facility] URINE AND UA Sq Epi Occasional Few /LPF 12/22 STOOL /LPF /2013 [facility] URINE AND UA Rare /HPF None Seen 12/22 STOOL Trichomonas /HPF /2013 [facility] URINE AND UA Bacteria Few /HPF None Seen 12/22 STOOL /HPF /2013 [facility] URINE AND UA Blood Trace Negative 12/22 STOOL *ABN* /2013 [facility] (12/22/13 4:17 PM) URINE AND UA Bili Negative Negative 12/22 STOOL *NA* [facility] (12/22/13 4:17 PM) URINE AND UA 0.2 0.1 - 1.0 12/22 STOOL Urobilinogen /2013 [facility] URINE AND UA Leuk Est Small Negative 12/22 STOOL *ABN* [facility] (12/22/13 4:17 PM) URINE AND UA Ketones Negative Negative 12/22 STOOL *NA* /2013 [facility] (12/22/13 4:17 PM) URINE AND UA Glucose Negative Negative 12/22 [facility] (12/22/13 4:17 PM) /2013 [facility] est URINE AND UA Turbidity Clear Clear 12/22 STOOL (12/22/13 4:17 PM) /2013 [facility] est URINE AND UA Color Yellow Yellow 12/22 STOOL *NA* /2013 [facility] (12/22/13 4:17 PM) URINE AND UA pH 6.0 5.0 - 8.0 12/22 [place]OL [place] URINE AND UA Spec Grav 1.015 <=1.030 12/22 STOOL [facility] URINE AND UA Protein Negative Negative 12/22 STOOL (12/22/13 4:17 PM) [facility] est URINE AND UA Nitrite Negative Negative 12/22 STOOL (12/22/13 4:17 PM) [facility] CHEM PANEL Phosphorus 2.7 2.5 - 4.5 12/17 [facility] CHEM PANEL Magnesium 2.2 1.8 - 2.4 12/17 [facility] ELECTROLYT AGAP 10.5 10.0 - 12/17 [facility] ES 20.0 [facility] ELECTROLYT eGFR 91 12/17 <sup>1</sup>[place] [facility] Comment: The [place] eGFR is calculated using the CKD-EPI formula. [...] ELECTROLYT BUN 10 7 - 22 12/17 [facility] ELECTROLYT Creatinine 0.8 0.5 - 1.4 12/17 [facility] Lvl [facility] ELECTROLYT Sodium Lvl 142 135 - 145 12/17 [facility] ELECTROLYT Glucose Lvl 87 70 - 99 12/17 <sup>3</sup>I [facility] /2014 nterpretive Medical Data: Adult Center reference range values reflect the clinical guidelines
of the [place] [employer]. ELECTROLYT CO2 30 24 - 32 12/17 [facility] ES [facility] ELECTROLYT Potassium 4.5 3.5 - 5.1 12/17 [facility] ES Lvl [facility] ELECTROLYT Chloride Lvl 106 95 - 109 [place] [facility] ELECTROLYT Calcium Lvl 8.6 8.5 - 10.5 12/17 [place] [facility] HEMATOLOGY INR 0.97 0.85 - 12/17 [...] 12.8 12.0 - 12/17 [place] 14.7 /2013 [facility] HEMATOLOGY Hgb 13.7 12.0 - 12/17 [place] 16.0 [facility] HEMATOLOGY RBC 4.88 4.20 - 12/17 [place] 5.40 /2013 [facility] HEMATOLOGY MCH 28.1 27.0 - 12/17 [place] 31.0 [facility] HEMATOLOGY Hct 42.1 36.0 - 12/17 [place] 48.0 /2013 [facility] HEMATOLOGY MCV 86.4 81.0 - 12/17 [place] 99.0 /2013 [facility] HEMATOLOGY RDW 14.3 11.5 - 12/17 14.5 [facility] HEMATOLOGY MCHC 32.5 32.0 - 12/17 [place] 36.0 /2013 [facility] HEMATOLOGY MPV 8.4 7.4 - 10.4 12/17 [facility] HEMATOLOGY Platelet 197 133 - 450 12/17 [facility] HEMATOLOGY WBC 7.2 3.7 - 10.4 12/17 [facility] HEMATOLOGY Monocytes 10.7 2.0 - 12.0 12/17 [facility] HEMATOLOGY Lymphocytes 27.2 20.0 - 12/17 [place] 40.0 [facility] HEMATOLOGY Lymphocytes 1.9 1.0 - 5.5 12/[place] [facility] HEMATOLOGY Eosinophils 3.2 0.0 - 4.0 12/17 a s [facility] HEMATOLOGY Basophils 0.6 0.0 - 1.0 12/17 [facility] HEMATOLOGY Segs-Bands # 4.2 1.5 - 8.1 12/17 [facility] HEMATOLOGY Eosinophils 0.2 0.0 - 0.5 12/[place] [facility] HEMATOLOGY Monocytes # 0.8 0.0 - 0.8 12/17 [facility] HEMATOLOGY Segs 58.3 45.0 - 12/17 [place] 75.0 [facility] PARATHYROI Ca Norm WB 1.11 1. - 12/17 [facility] D PROFILE 1. [facility] PARATHYROI Ca Ion WB 1.17 1. - 12/17 [facility] D PROFILE 1. [facility] DRUG U Benzodia Negative Negative 12/17 [facility] SCREEN Scr *NA* Medical (12/16/13 10:45 PM) Cente r DRUG U Cannab Scr Positive Negative 12/17 [facility] SCREEN *ABN* Medical (12/16/13 10:45 PM) Cente r DRUG U Cocaine Negative Negative 12/17 [facility] SCREEN Scr *NA* Medical (12/16/13 10:45 PM) Cente r DRUG U Phencyc Negative Negative 12/17 [facility] SCREEN Scr *NA* Medical (12/16/13 10:45 PM) Cente r DRUG U Opiate Scr Negative Negative 12/17 [facility] SCREEN *NA* Medical (12/16/13 10:45 PM) Cente r DRUG UDS Note See Note 6 12/17 <sup>6</sup>I [facility] as SCREEN (12/16/13 10:45 PM) /2013 nterpretive M edical Data: Drugs Center reported as positive have not been confirmed by a second
il thod and should be used for medical [...] DRUG U Amph Scr Negative Negative 12/17 [facility] SCREEN *NA* /2013 Medical (12/16/13 10:45 PM) Cente r DRUG U Keyla Scr Negative Negative 12/17 [facility] SCREEN *NA* /2013 Medical (12/16/13 10:45 PM) Cente r CARDIAC Total CK 56 12 - 191 12/17 [facility] ENZYMES /2013 [facility] CARDIAC Troponin-T <0.010 0.000 - 12/17 [facility] ENZYMES 0.100 [facility] CARDIAC Troponin-I <0.02 0.00 - 12/17 [facility] ENZYMES 0.40 [facility] CARDIAC BNP 13 <=100 12/17 <sup>5</sup>I [facility] ENZYMES pg/mL /2013 nterpretive Medical Data: Center Elevated results are in line with increasing severity of
con gestive heart failure. Minor elevations between 100 and 300
may be seen with Myocardial Ischemia, Sodium retaining drugs,
an d compensated/t reated heart failure. LIPIDS VLDL 18 12/17 [place] /2013 [facility] LIPIDS LDL 88 <=99 mg/dL 12/17 [facility] (Calculated) [facility] LIPIDS Trig 88 <=149 12/17 [facility] mg/dL /2013 [facility] LIPIDS CHD Risk 3.08 3.90 - 12/17 [place] 5.80 /2013 [facility] LIPIDS Chol 157 <=199 12/17 [facility] mg/dL /2013 [facility] LIPIDS HDL 51 >=61 mg/dL 12/17 [facility] SPECIAL Hgb A1C 5.3 <=5.6 % 12/17 [facility] CHEMISTRY /2013 [facility] THYROID TSH 0.870 0.360 - 12/17 [facility] PANEL 3.740 /2013 [facility] CARDIAC Total CK 42 12 - 191 12/16 [facility] ENZYMES /2013 [facility] CARDIAC Troponin-I <0.02 0.00 - 12/16 [facility] ENZYMES 0.40 [facility] CHEM PANEL Lactic Acid 1.3 0.5 - 2.2 12/[place] /2013 [facility] HEMATOLOGY PT 11.8 12.0 - 12/16 [place] 14.7 /2013 [facility] HEMATOLOGY INR 0.87 0.85 - 12/16 [...] 4.69 4.20 - 12/16 [place] 5.40 /2013 [facility] HEMATOLOGY WBC 6.6 3.7 - 10.4 12/16 [facility] HEMATOLOGY Hct 40.5 36.0 - 12/16 [place] 48.0 /2013 [facility] HEMATOLOGY MCV 86.4 81.0 - 12/16 [place] 99.0 /2013 [facility] HEMATOLOGY Hgb 13.6 12.0 - 12/16 [place] 16.0 /2013 [facility] HEMATOLOGY MCH 29.0 27.0 - 12/16 [place] 31.0 /2013 [facility] HEMATOLOGY MCHC 33.6 32.0 - 12/16 [place] 36.0 [facility] HEMATOLOGY Platelet 202 133 - 450 12/16 [facility] HEMATOLOGY RDW 13.4 11.5 - 12/16 14.5 [facility] HEMATOLOGY MPV 8.6 7.4 - 10.4 12/16 [facility] HEMATOLOGY Monocytes # 0.8 0.0 - 0.8 12/16 [facility] HEMATOLOGY Basophils # 0.0 0.0 - 0.2 12/16 [facility] HEMATOLOGY Monocytes 12.1 2.0 - 12.0 12/16 [facility] HEMATOLOGY Eosinophils 3.8 0.0 - 4.0 12/16 [facility] HEMATOLOGY Basophils 0.6 0.0 - 1.0 12/16 [facility] HEMATOLOGY Segs-Bands # 3.9 1.5 - 8.1 12/16 [facility] HEMATOLOGY Eosinophils 0.3 0.0 - 0.5 12/16 a s [facility] HEMATOLOGY Lymphocytes 1.6 1.0 - 5.5 12/16 a s [facility] HEMATOLOGY Lymphocytes 25.0 20.0 - 12/16 [place] 40.0 [facility] HEMATOLOGY Segs 58.5 45.0 - 12/16 75.0 [facility] CHEM PANEL eGFR 79 12/16 <sup>2</sup>R [...] PANEL Creatinine 0.9 0.5 - 1.4 12/16 [facility] CHEM PANEL Sodium Lvl 142 135 - 145 12/16 [facility] CHEM PANEL Potassium 4.5 3.5 - 5.1 12/16 [facility] CHEM PANEL Chloride Lvl 107 95 - 109 12/16 [facility] CHEM PANEL Glucose Lvl 78 70 - 99 12/16 <sup>4</sup>I nterpretive Medical Data: Adult Center reference range values reflect the clinical guidelines
of the [place] [employer]. CHEM PANEL BUN 11 7 - 22 12/16 [facility] CHEM PANEL A/G Ratio 1.0 0.7 - 1.6 12/16 [facility] CHEM PANEL B/C Ratio 12 6 - 25 12/16 [facility] CHEM PANEL Globulin 3.6 2.0 - 4.0 12/16 [facility] CHEM PANEL AGAP 16.5 10.0 - 12/16 20.0 [facility] CHEM PANEL Total 7.2 6.4 - 8.4 12/16 Protein [facility] CHEM PANEL AST 19 0 - 37 12/16 [facility] CHEM PANEL CO2 23 24 - 32 12/16 [facility] CHEM PANEL Calcium Lvl 9.2 8.5 - 10.5 12/16 [facility] CHEM PANEL Bili Total 0.3 0.2 - 1.3 12/16 [facility] CHEM PANEL Albumin Lvl 3.6 3.5 - 5.0 12/16 [facility] CHEM PANEL Alk Phos 87 39 - 136 12/16 [facility] CHEM PANEL ALT 31 0 - 65 12/16 [facility] CARDIAC Total CK 56 12 - 191 12/16 [facility] ENZYMES [facility] CARDIAC Troponin-I <0.02 0.00 - 12/16 [facility] ENZYMES 0.40 [facility] CARDIAC Troponin-I <0.02 0.00 - 11/08 [facility] ENZYMES 0.40 [facility] CARDIAC Total CK 49 12 - 191 11/08 [facility] ENZYMES /2013 [facility] CARDIAC Troponin-T <0.010 0.000 - 11/08 [facility] ENZYMES 0.100 /2013 [facility] MYOGLOBIN Myoglobin 36 25 - 72 11/08 /2013 [facility] CARDIAC Troponin-T <0.010 0.000 - 11/08 [facility] ENZYMES 0.100 /2013 [facility] CARDIAC Total CK 54 12 - 191 11/08 [facility] /2013 [facility] CARDIAC Troponin-I <0.02 0.00 - 11/08 [facility] ENZYMES 0.40 [facility] CARDIAC Troponin-I <0.02 0.00 - 11/08 [facility] ENZYMES 0.40 [facility] ELECTROLYT AGAP 11.4 10.0 - 11/08 [facility] ES 20.0 [facility] ELECTROLYT eGFR 69 11/08 <sup>1</sup>[place] [facility] Medical Comment: The Center eGFR is calculated [...] 9.2 8.5 - 10.5 11/08 [place] [facility] ELECTROLYT CO2 27 24 - 32 11/08 [facility] ELECTROLYT Chloride Lvl 105 95 - 109 11/08 [place] [facility] ELECTROLYT Potassium 3.4 3.5 - 5.1 11/08 [facility] ES Lvl [facility] ELECTROLYT Sodium Lvl 140 135 - 145 11/08 [facility] Center ELECTROLYT BUN 11 7 - 22 11/08 Medical Center ELECTROLYT Glucose Lvl 84 70 - 99 11/08 <sup>2</sup>I nterpretive Medical Data: Adult Center reference range values reflect the clinical guidelines
of the [place] [employer]. ELECTROLYT Creatinine 1.0 0.5 - 1.4 11/08 [facility] ES Lvl [facility] HEMATOLOGY Basophils # 0.1 0.0 - 0.2 11/08 [facility] HEMATOLOGY Eosinophils 0.2 0.0 - 0.5 11/08 [place] [facility] HEMATOLOGY Monocytes # 0.8 0.0 - 0.8 11/08 [facility] HEMATOLOGY Segs 72.5 45.0 - 11/08 [place] 75.0 [facility] [place] HEMATOLOGY Lymphocytes 17.0 20.0 - 11/08 40.0 [facility] HEMATOLOGY Eosinophils 2.1 0.0 - 4.0 11/08 [facility] HEMATOLOGY Monocytes 7.8 2.0 - 12.0 11/08 [facility] HEMATOLOGY Segs-Bands # 7.6 1.5 - 8.1 11/08 [facility] Center HEMATOLOGY Basophils 0.6 0.0 - 1.0 11/08 [facility] Center HEMATOLOGY Lymphocytes 1.8 1.0 - 5.5 11/08 s [facility] HEMATOLOGY MPV 8.7 7.4 - 10.4 11/08 [facility] [place] HEMATOLOGY RDW 14.0 11.5 - 11/08 [place] 14.5 [facility] HEMATOLOGY Platelet 191 133 - 450 11/08 [facility] [place] HEMATOLOGY MCHC 33.9 32.0 - 11/08 [place] 36.0 /2013 Medical Center HEMATOLOGY RBC X 10x6 4.65 4.20 - 11/08 [place] 5.40 /2013 [facility] HEMATOLOGY WBC X 10x3 10.6 3.7 - 10.4 11/08 [facility] [place] HEMATOLOGY MCH 29.3 27.0 - 11/08 [place] 31.0 Medical Center HEMATOLOGY MCV 86.6 81.0 - 11/08 [facility] [place] 99.0 /2013 [facility] HEMATOLOGY Hgb 13.6 12.0 - 11/08 [facility] 16.0 /2014 [facility] HEMATOLOGY Hct 40.2 36.0 - 11/08 [facility] 48.0 /2014 [facility] Pathology Reports No Data Provided for This Section Diagnostic Reports Report Value Date Source ED Abdomen/Pelvis IV Patient Name: LUCIUS YEPEZ 01/19/2017 [facility] contrast only CT : 1950; Age: 66 years Female MR: [id number] Study: ED Abdomen/Pelvis IV contrast only CT [...] hours. 5. Presumed multi fibroid uterus. SL: [id number] Chest 1view DX EXAM: XR CHEST 1 [...] 2 view chest compared to 11/06/2016. 09/2016 [facility] History: Chest pain and cough Comments: The trachea is midline. The cardiomediastinal si lhouette is normal in size. No pneumonia. No pleural effusions or pneumothorax. Impression: No acute cardiopulmonary disease. 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 There is no neural foraminal compromise. [id number]: The interverte bral discs are well-maintained. There [...] DX EXAM: XR CHEST 2 VIEWS 10/10/2016 [facility] DATE: 10/10/2016 12:16 PM [address]ER Jose ter INDICATION: Chest pain COMPARISON: Chest [...] views DX Chest 2 views DX 09/14/2016 [facility] Caroline nn CLINICAL HISTORY: Cough and [...] contrast CT CT HEAD WITHOUT CONTRAST 04/14/2016 [facility] DATE: 04/14/2016 at 12:32 AM. [...] Pulmonary Study: Chest Pulmonary Embolism CTA 03/11/2016 [facility] Embolism CTA Age: 65 years y/o Female [...] pulmonary artery noted on previous exams. SL: [id number] Abdomen AP DX Clinical Indication: Vomiting; 03/11/2016 [facility] Comparison: None 1 view abdomen Nonobstructive bowel gas pat tern. Moderate amount of stool throughout the colon. No pathologic calcifications are evident. IMPRESSION: Negative. SL: [id number] Chest 1view DX Chest 1view DX 03/11/2016 [facility] CLINICAL HISTORY:Chest pain COMPARISON: 02/29/2016 FINDINGS: Limited AP portable study. Lungs are reasonably well in flated. No consolidation, effusion or pneumothorax. Trachea is midline. Cardiomediastinal silhouette is within normal li mits. No pulmonary edema. No significant bony abnormality is noted. IMPRESSION: No acute abnormality is noted in the chest. SL: [id number] Chest 2 views DX Study: Chest 2 views DX 02/29/2016 [facility] Age Female 65 years old Clinical Indication: [...] IMPRESSION: 1. No acute abnormality noted. SL: [id number] Brain wo contrast CT CLINICAL HISTORY: Vertigo. 09/04/[address] [facility] [address] brain without contrast. Comparison 05/02/2015 [...] 1view DX CHEST RADIOGRAPH SINGLE VIEW 09/03/2015 [facility] INDICATION: Dyspnea COMPARISON: Chest radiograph 07/15/2015 [...] 1view DX EXAM: CHEST 1 VIEW 05/18/2015 [facility] DATE: May 18, 2015 01:38:00 PM INDICATION: Chest pain COMPARISON: Chest radiograph 05/09/2015 TECHNIQUE: Single AP view of the chest FINDINGS: The lungs are hugo ar. The costophrenic sulci are sharp without effusion. The heart size and mediastinal contours are within normal limits. Aortic calcifications are present. IMPRESSION: No acute cardiopulmonary disease daniel ntified. Chest 2 views DX EXAM: CHEST 2 VIEWS 05/09/2015 [facility] DATE: May 09, 2015 12:41:00 PM [...] CT of the brain without contrast. 11/2014 [facility] DATE: 05/02/2015 CLINICAL HISTORY: Head trauma. COMPARISON: [...] views DX EXAM: CHEST 2 VIEWS 05/02/2015 [facility] DATE: May 02, 2015 05:44:24 PM INDICATION: Chest pain COMPARISON: Chest radiograph 03/21/2015 TECHNIQUE: Frontal and lateral chest radiographs FINDINGS: The heart size is within normal limits. The lungs are clear. The costophrenic sulci are sharp without effusion. The osseous structures are unremarkable. IMPRESSION: No acute abnormality identified. Knee 3 views DX HISTORY: Pain, [facility]. [facility] 4 views. No fracture subluxation or acute abnormality. No significant joint effusion. IMPRESSION: Negative. SL:14 Spine lumbar series CLINICAL HISTORY: Pain post trauma. 04/11/[address] [place] [address] DX Lumbar spine [address] abdomen and pelvis 03/24/2015. Grade 1 anterolisthesis of L 4 upon L5. Advanced degenerative spondylosis with disc space narrowing at L4-L5 and L5-S1. No fracture or acute subluxation otherwise appreciated. IMPRESSION: Chronic degenera tive spondylosis. L4-L5 anterolisthesis, unchanged from 03/24/2015. No other acute finding. SL:14 Shoulder series DX Examination: Right shoulder, 3 views 03/30/[address] [place] [address] History: Pain from a fall Comparison: None. Findings: Multiple views of the right shoulder show no acute bony fracture or joint dislocation. Bones are demineralized. Severe glenohumeral joint osteoarthrosis is seen. Soft tissues are unremarkable. IMPRESSION: No acute bony abnormality of the rig ht shoulder. SL: 16 Abdomen/Pelvis w IV EXAMINATION: CT of the abdomen and pelvi s with contrast 03/24/2015 [facility] contrast CT HISTORY: Abdominal pain, acute [...] views DX CHEST RADIOGRAPH 2 VIEWS 03/21/2015 [facility] INDICATION: Chest pain COMPARISON: Chest radiograph 03/11/2015 IMPRESSION: The cardiac silhouette and pulmonary vasculature are within normal limits. No consolidation, pleural effusion, or pneumotho rax are visible. SL: 16 Chest 1view DX Examination: Chest x-ray, single view 03/11/2015 [facility] History: Chest pain Comparison: 03/05/2015 Findings: Cardiac silhouette is normal in size. Mild interstitial edema is seen. There is no pleural effusion or pneumothorax. Coronary artery stent is noted. Osseous structures are stable. IMPRESSION: Mild pulmonary edema SL: 16 Chest Pulmonary EXAM: CTA CHEST WITH CONTRAST 03/05/2015 [facility] Embolism CTA Center DATE: 03/05/2015 at [...] DX EXAM: XR CHEST 1 VIEW 03/05/2015 [facility] DATE: Mar 05, 2015 01:09:00 AM [...] MRI BRAIN WITH AND WITHOUT CONTRAST: 0[facility] CLINICAL HISTORY: Mass/Tumor. TECHNIQUE AND FINDINGS: A [...] Lower Extremity Runoff, [id number] at 2148. 02/24/2015 [facility] runoff CTA CLINICAL HISTORY: 64-year-ol d [...] 2 views DX Chest 2 views. 02/24/2015 [facility] COMPARISON: 02/16/2015 FINDINGS: Mild scarring is [...] 2 or 3 THREE-VIEW CERVICAL SPINE: 02/24/2015 [facility] view DX DISCUSSION: No older studies [...] [address] NAME: LUCIUS YPEEZ 02/24/2015 [facility] : 1950 SEX: F 8 Ordering Physician: [...] 1view DX EXAM: CHEST 1 VIEW 02/16/2015 [facility] DATE: Feb 16, 2015 06:21:07 PM INDICATION: Chest pain COMPARISON: None. TECHNIQUE: AP chest radiograph. FINDINGS: Lungs are clear bilaterally without effusion. Cardiac silhouette is not enlarged. Aorta is mildly ectatic. Aortic arch calcifications are seen.. Coronary artery stent is seen. Right shoulder degenerative changes are noted. IMPRESSION: 1. No acute intrathoracic abnormality SL: 12 Chest 1view PROCEDURE: Chest 1view 12/22/2013 [facility] REASON FOR EXAM: See Clinic Indication CLINICAL INDICATION: Chest pain COMPARISON: 12/16/2013. FINDINGS: No acute process. No focal consolidation, pleural effusion, or pneumothorax. Stable cardiac silhouette and mediastinum. Tortuous atherosclerotic thoracic aorta. SL: 12 Chest Pulmonary EXAM: CTA CHEST WITH CONTRAST 12/16/2013 [facility] Embolism CTA Center DATE: 12/16/2013 at 1600 [...] views EXAM: XR CHEST 2 VIEWS 12/16/2013 [facility] DATE: 12/16/2013 at 1341 hours INDICATION: Chest [...] [place] Diastolic (mm Hg) 70 01/19/[address] [facility] [address] Respitory Rate 16 01/19/2017 [facility] Systolic (mm Hg) 117 01/19/2017 [facility] t Diastolic (mm Hg) 66 01/19/[address] [facility] [address] Respitory Rate 18 01/19/2017 [facility] Respitory Rate 16 01/19/2017 [facility] Systolic (mm Hg) 133 01/19/2017 [facility] t Diastolic (mm Hg) 68 01/19/2017 [facility] Weight 45.455 01/19/2017 [facility] BMI Calculated 19.57 01/19/2017 [facility] Height 152.4 cm 01/19/2017 [facility] Temperature Oral (F) 97.0 F 01/19/2017 [facility] Rate 60 01/19/2017 [facility] Systolic (mm Hg) 118 01/17/2017 [facility] dical Center Diastolic (mm Hg) 71 01/17/2017 [facility] Center Respitory Rate 21 01/17/2017 [facility] Systolic (mm Hg) 136 01/17/2017 [facility] dical Center Diastolic (mm Hg) 71 01/17/2017 [facility] Center Respitory Rate 20 01/17/2017 [facility] Temperature Oral (F) 98.1 F 01/17/2017 [facility] Systolic (mm Hg) 129 01/17/2017 [facility] dical Center Diastolic (mm Hg) 74 01/17/2017 [facility] edical Center Respitory Rate 18 01/17/2017 [facility] Heart Rate 79 01/16/2017 [facility] Temperature Oral (F) 98 F 01/16/2017 [facility] Weight 45.455 [facility]16/2017 [facility] [place] Heart Rate 89 11/29/2016 [facility] Systolic (mm Hg) 119 11/29/2016 [facility] Diastolic (mm Hg) 62 11/29/2016 [place] [facility] Respitory Rate 18 11/29/2016 [facility] Temperature Oral (F) 98.7 F 11/29/2016 [place] Heart Rate 90 11/29/2016 [facility] Respitory Rate 18 11/29/2016 [facility] Systolic (mm Hg) 113 11/29/2016 [facility] [place] Diastolic (mm Hg) 66 11/29/2016 [place] [facility] Heart Rate 93 11/29/2016 [place] Respitory Rate 18 11/29/2016 [facility] Systolic (mm Hg) 118 11/29/2016 [facility] Diastolic (mm Hg) 61 11/29/2016 [facility] [place] Weight 50 11/29/2016 [facility] BMI Calculated 21.53 11/29/2016 [facility] Height 152.4 cm 11/29/2016 [facility] Temperature Oral (F) 98.6 F 11/29/2016 [place] Respitory Rate 16 11/07/2016 [facility] Heart Rate 84 11/07/2016 [facility] Temperature Oral (F) 98.2 F 11/07/2016 [place] Systolic (mm Hg) 122 11/07/2016 [facility] Diastolic (mm Hg) 72 11/07/2016 [place] [facility] Heart Rate 88 11/07/2016 [facility] Respitory Rate 16 11/07/2016 [facility] Systolic (mm Hg) 98 11/07/2016 [facility] Diastolic (mm Hg) 62 11/07/2016 [place] [facility] Weight 56.818 11/06/2016 [facility] Heart Rate 96 11/06/2016 [facility] Temperature Oral (F) 98.3 F 11/06/2016 [place] Respitory Rate 16 11/06/2016 [facility] Systolic (mm Hg) 123 11/06/2016 [facility] Diastolic (mm Hg) 70 11/06/2016 [place] Respitory Rate 18 10/11/2016 [facility] Temperature Oral (F) 97.9 F 10/11/2016 [facility] Systolic (mm Hg) 99 10/11/2016 [facility] Me dical Center Diastolic (mm Hg) 57 10/11/2016 [facility] M edical Center Heart Rate 51 10/11/2016 [facility] Medica l Center Heart Rate 56 10/11/2016 [facility] Med[facility] l Center Systolic (mm Hg) 125 10/11/2016 [place] [facility] Diastolic (mm Hg) 63 10/11/2016 [facility] [facility] Temperature Oral (F) 98.1 F 10/11/2016 [facility] [place] Temperature Oral (F) 99.0 F 10/11/2016 [facility] Medical Center Respitory Rate 16 10/11/2016 [facility] Heart Rate 72 10/11/2016 [facility] Med[facility] l Center Systolic (mm Hg) 115 10/11/2016 [facility] dical Center Diastolic (mm Hg) 56 10/11/2016 [facility] Weight 50 10/11/2016 [facility] BMI Calculated 21.53 10/11/2016 [facility] Height 152.4 cm 10/11/2016 [facility] Respitory Rate 19 10/11/2016 [facility] Height 152.4 cm 10/10/2016 [facility] BMI Calculated 21.53 10/10/2016 [facility] Weight 50 10/10/2016 [facility] BMI Calculated 21.53 09/15/2016 [facility] Weight 50 09/15/2016 [facility] Height 152.4 cm 09/15/2016 [facility] Systolic (mm Hg) 129 09/15/2016 [facility] Diastolic (mm Hg) 72 09/15/2016 [place] Respitory Rate 18 09/15/2016 [facility] Heart Rate 66 09/15/2016 [facility] Temperature Oral (F) 98.5 F 09/15/2016 [place] Respitory Rate 18 04/14/2016 [facility] [place] Temperature Oral (F) 98.7 F 04/14/2016 [facility] Medical Center Systolic (mm Hg) 120 04/14/2016 [facility] dical Center Diastolic (mm Hg) 88 04/14/2016 [facility] Heart Rate 79 04/14/2016 [facility] Med[facility] l Center BMI Calculated 21.53 04/14/2016 [facility]i tony Center Weight 50 04/14/2016 [facility] Temperature Oral (F) 99.2 F 04/14/2016 [facility] Height 152.4 cm 04/14/2016 [facility] Center Respitory Rate 18 04/14/2016 [facility]i tony Center Systolic (mm Hg) 110 04/14/2016 [facility] [place] [facility] Diastolic (mm Hg) 68 04/14/2016 [facility] Heart Rate 81 04/14/2016 [facility] Temperature Oral (F) 97.8 F 03/12/2016 [place] Heart Rate 55 03/12/2016 [place] Respitory Rate 17 03/12/2016 [place] Systolic (mm Hg) 130 03/12/2016 [place] Diastolic (mm Hg) 70 03/12/2016 [place] Respitory Rate 16 03/12/2016 [place] Systolic (mm Hg) 94 03/12/2016 [place] Diastolic (mm Hg) 59 03/12/2016 [place] Respitory Rate 18 03/12/2016 [place] Heart Rate 58 03/12/2016 [place] Temperature Oral (F) 98.2 F 03/12/2016 [place] Temperature Oral (F) 98.0 F 03/12/2016 [place] Heart Rate 68 03/12/2016 [place] Systolic (mm Hg) 106 03/12/2016 [place] Diastolic (mm Hg) 53 03/12/2016 [place] Height 152.4 cm 03/11/2016 [place] BMI Calculated 21.53 03/11/2016 [place] Weight 50 03/11/2016 [place] Respitory Rate 16 03/06/2016 [place] Systolic (mm Hg) 116 03/06/2016 [place] Diastolic (mm Hg) 79 03/06/2016 [place] Heart Rate 68 03/06/2016 [place] Temperature Oral (F) 98.1 F 03/06/2016 [place] BMI Calculated 21.53 03/05/2016 [place] Weight 50 03/05/2016 [place] Systolic (mm Hg) 111 03/05/2016 [place] Diastolic (mm Hg) 81 03/05/2016 [place] Heart Rate 67 03/05/2016 [place] Height 152.4 cm 03/05/2016 [place] Temperature Oral (F) 98.3 F 03/05/2016 [place] Respitory Rate 16 03/05/2016 [place] Respitory Rate 16 03/01/2016 [place] Systolic (mm Hg) 105 03/01/2016 [place] Diastolic (mm Hg) 65 03/01/2016 [place] Temperature Oral (F) 98.2 F 03/01/2016 [place] Heart Rate 87 03/01/2016 [place] Respitory Rate 12 02/29/2016 [place] Temperature Oral (F) 98.3 F 02/29/2016 [place] Heart Rate 81 02/29/2016 [place] Respitory Rate 18 02/29/2016 [place] Systolic (mm Hg) 112 02/29/2016 [place] Diastolic (mm Hg) 79 02/29/2016 [place] Respitory Rate 20 09/05/2015 [facility] Systolic (mm Hg) 99 09/05/2015 [facility] Diastolic (mm Hg) 57 09/05/[address] [facility] [address] Heart Rate 91 09/05/2015 [facility] Weight 52.276 09/05/2015 [facility] Systolic (mm Hg) 102 09/05/2015 [place] Diastolic (mm Hg) 54 09/05/[address] [facility] [address] Respitory Rate 18 09/05/2015 [facility] Heart Rate 86 09/05/2015 [facility] Respitory Rate 20 09/05/2015 [facility] Systolic (mm Hg) 95 09/05/2015 [place] Diastolic (mm Hg) 49 09/05/[address] [facility] [address] Heart Rate 94 09/05/2015 [facility] Weight 50.92 09/04/2015 [facility] Weight 50.909 09/04/2015 [facility] BMI Calculated 19.88 09/04/2015 [facility] Height 160.02 cm 09/04/2015 [facility] Temperature Oral (F) 98.3 F 09/04/2015 [facility] Height 152.4 cm 09/04/2015 [facility] BMI Calculated 22.51 09/04/2015 [facility] Temperature Oral (F) 98.7 F 09/04/2015 [facility] Systolic (mm Hg) 105 07/16/2015 [place] Diastolic (mm Hg) 68 07/16/[address] Respitory Rate 18 07/16/2015 [facility] Heart Rate 65 07/16/2015 [facility] Temperature Oral (F) 98.0 F 07/16/2015 [facility] Systolic (mm Hg) 112 07/16/2015 [place] Diastolic (mm Hg) 70 07/16/[address] Respitory Rate 18 07/16/2015 [facility] Heart Rate 73 07/16/2015 [facility] Temperature Oral (F) 97.4 F 07/16/2015 [facility] Systolic (mm Hg) 131 07/16/2015 [place] Diastolic (mm Hg) 79 07/16/[address] Respitory Rate 18 07/16/2015 [facility] Heart Rate 62 07/16/2015 [facility] Temperature Oral (F) 97.9 F 07/16/2015 [facility] Height 152.4 cm 07/16/2015 [facility] Weight 50.1 07/16/2015 [facility] BMI Calculated 21.57 07/16/2015 [facility] Height 152.4 cm 07/15/2015 [facility] BMI Calculated 21.53 07/15/2015 [facility] Weight 50 07/15/2015 [facility] Weight 50 07/05/2015 [facility] Height 152.4 cm 07/05/2015 [facility] BMI Calculated 21.53 07/05/2015 [facility] Temperature Oral (F) 98.3 F 07/05/2015 [facility] Respitory Rate 18 07/05/2015 [facility] Heart Rate 91 07/05/2015 [facility] Systolic (mm Hg) 166 07/05/2015 [facility] Diastolic (mm Hg) 82 07/05/[address] [facility] [address] BMI Calculated 23.48 07/04/2015 [facility] Weight 54.545 07/04/2015 [facility] Height 152.4 cm 07/04/2015 [facility] Temperature Oral (F) 97.9 F 07/04/2015 [facility] Respitory Rate 18 07/04/2015 [facility] Heart Rate 86 07/04/2015 [facility] Systolic (mm Hg) 98 07/04/2015 [facility] Diastolic (mm Hg) 74 07/04/2015 [facility] BMI Calculated 21.53 06/04/2015 [facility] Weight 50 06/04/2015 [facility] Height 152.4 cm 06/04/2015 [facility] Temperature Oral (F) 98.8 F 06/04/2015 [facility] Respitory Rate 20 06/04/2015 [facility] Heart Rate 81 06/04/2015 [facility] Systolic (mm Hg) 100 06/04/2015 [place] Diastolic (mm Hg) 69 06/04/[address] Systolic (mm Hg) 105 05/18/2015 [facility] dical Center Diastolic (mm Hg) 65 05/18/2015 [facility] Temperature Oral (F) 96.6 F 05/18/2015 [facility] Heart Rate 68 05/18/2015 [facility] Respitory Rate 18 05/18/2015 [facility] Systolic (mm Hg) 115 05/18/2015 [facility] dical Center Diastolic (mm Hg) 79 05/18/2015 [facility] Center Systolic (mm Hg) 93 05/18/2015 [facility] dical Center Diastolic (mm Hg) 60 05/18/2015 [facility] Temperature Oral (F) 98.1 F 05/18/2015 [facility] Center Respitory Rate 17 05/18/2015 [facility] Temperature Oral (F) 98.2 F 05/18/2015 [facility] Heart Rate 68 05/18/2015 [facility] Respitory Rate 18 05/18/2015 [facility] Heart Rate 96 05/18/2015 [facility] Respitory Rate 20 05/09/2015 [facility] Systolic (mm Hg) 115 05/09/2015 [facility] dical Center Diastolic (mm Hg) 64 05/09/2015 [facility] Temperature Oral (F) 97.5 F 05/09/2015 [facility] Temperature Oral (F) 97.5 F 05/09/2015 [facility] Systolic (mm Hg) 136 05/09/2015 [facility] dical Center Diastolic (mm Hg) 70 05/09/2015 [facility] Center Respitory Rate 19 05/09/2015 [facility] Systolic (mm Hg) 135 05/09/2015 [facility] dical Center Diastolic (mm Hg) 67 05/09/2015 [facility] Weight 50 05/09/2015 [facility] BMI Calculated 21.53 05/09/2015 [facility] Height 152.4 cm 05/09/2015 [facility] Temperature Oral (F) 98.9 F 05/09/2015 [facility] Center Respitory Rate 18 05/09/2015 [facility] Heart Rate 77 05/09/2015 [facility] Systolic (mm Hg) 115 05/03/2015 [facility] dical Center Diastolic (mm Hg) 74 [facility] 77 05/03/2015 [facility] Respitory Rate 18 05/03/2015 [facility] Temperature Oral (F) 98.5 F 05/03/2015 [facility] Heart Rate 75 05/02/2015 [facility] Respitory Rate 18 05/02/2015 [facility] Systolic (mm Hg) 113 05/02/2015 [facility] dical Center Diastolic (mm Hg) 71 05/02/2015 [facility] Heart Rate 72 05/02/2015 [facility] Temperature Oral (F) 98.1 F 05/02/2015 [facility] Systolic (mm Hg) 146 05/02/2015 [facility] dical Center Diastolic (mm Hg) 80 05/02/2015 [facility] [place] Respitory Rate 18 05/02/2015 [facility] Temperature Oral (F) 98.9 F 05/02/2015 [facility] Systolic (mm Hg) 123 04/11/2015 [facility] Diastolic (mm Hg) 78 04/11/[address] Temperature Oral (F) 98.7 F 04/11/2015 [facility] Respitory Rate 18 04/11/2015 [facility] Heart Rate 80 04/11/2015 [facility] Weight 50 04/11/2015 [facility] Temperature Oral (F) 98.4 F 04/11/2015 [facility] Systolic (mm Hg) 90 04/11/2015 [place] Diastolic (mm Hg) 65 04/11/[address] Respitory Rate 18 04/11/2015 [facility] Heart Rate 94 04/11/2015 [facility] Systolic (mm Hg) 123 03/30/2015 [place] Diastolic (mm Hg) 78 03/30/[address] [facility] [address] Temperature Oral (F) 97.9 F 03/30/2015 [facility] Heart Rate 81 03/30/2015 [facility] Respitory Rate 18 03/30/2015 [facility] BMI Calculated 21.53 03/30/2015 [facility] Height 152.4 cm 03/30/2015 [facility] Systolic (mm Hg) 114 03/30/2015 [place] Diastolic (mm Hg) 73 03/30/[address] Respitory Rate 16 03/30/2015 [facility] Heart Rate 83 03/30/2015 [facility] Weight 50 03/30/2015 [facility] Temperature Oral (F) 97.9 F 03/30/2015 [facility] Respitory Rate 18 03/24/2015 [facility] Temperature Oral (F) 97.9 F 03/24/2015 [facility] Heart Rate 83 03/24/2015 [facility] Systolic (mm Hg) 114 03/24/2015 [place] Diastolic (mm Hg) 71 03/24/[address] [facility] [address] Heart Rate 96 03/24/2015 [facility] Temperature Oral (F) 98.8 F 03/24/2015 [facility] Respitory Rate 18 03/24/2015 [facility] Systolic (mm Hg) 108 03/24/2015 [place] [facility] Diastolic (mm Hg) 68 03/24/[address] [facility] [address] Heart Rate 85 03/24/2015 [facility] Temperature Oral (F) 98.4 F 03/24/2015 [facility] Respitory Rate 18 03/24/2015 [facility] Systolic (mm Hg) 110 03/24/2015 [place] Diastolic (mm Hg) 64 03/24/[address] [facility] [address] BMI Calculated 22.82 03/22/2015 [facility] Weight 53 03/22/2015 [facility] Height 152.4 cm 03/22/2015 [facility] BMI Calculated 21.53 03/21/2015 [facility] Weight 50 03/21/2015 [facility] Height 152.4 cm 03/21/2015 [facility] Systolic (mm Hg) 113 03/11/2015 [place] Diastolic (mm Hg) 72 03/11/[address] [facility] [address] Respitory Rate 18 03/11/2015 [facility] Heart Rate 72 03/11/2015 [facility] Temperature Oral (F) 98.1 F 03/11/2015 [facility] BMI Calculated 21.53 03/11/2015 [facility] Weight 50 03/11/2015 [facility] Systolic (mm Hg) 122 03/11/2015 [place] Diastolic (mm Hg) 75 03/11/[address] [facility] [address] Temperature Oral (F) 97.9 F 03/11/2015 [facility] Heart Rate 90 03/11/2015 [facility] Respitory Rate 18 03/11/2015 [facility] Height 152.4 cm 03/11/2015 [facility] Temperature Oral (F) 97.9 F 03/05/2015 [facility] Systolic (mm Hg) 108 03/05/2015 [facility] dical Center Diastolic (mm Hg) 60 03/05/2015 [facility] Respitory Rate 16 03/05/2015 [facility] Respitory Rate 16 03/05/2015 [facility] Temperature Oral (F) 97.8 F 03/05/2015 [facility] Systolic (mm Hg) 96 03/05/2015 [facility] dical Center Diastolic (mm Hg) 64 03/05/2015 [facility] Center Respitory Rate 20 03/05/2015 [facility] Systolic (mm Hg) 96 03/05/2015 [facility] dical Center Diastolic (mm Hg) 62 03/05/2015 [facility] Temperature Oral (F) 97.7 F 03/05/2015 [facility] Heart Rate 83 03/05/2015 [facility] Heart Rate 100 03/05/2015 [facility] Height 152.4 cm 03/05/2015 [facility] BMI Calculated 21.53 03/05/2015 [facility] Weight 50 03/05/2015 [facility] Systolic (mm Hg) 121 [facility]/25/[facility] Di[facility] (mm [facility]) 69 02/25/2015 [facility] Temperature Oral (F) 97.9 F 02/25/2015 [facility] Heart Rate 71 02/25/2015 [facility] Respitory Rate 18 02/25/2015 [facility] Temperature Oral (F) 98 F 02/25/2015 [facility] Heart Rate 70 02/25/2015 [facility] Respitory Rate 18 02/25/2015 [facility] Systolic (mm Hg) 108 02/25/2015 [place] [facility] Diastolic (mm Hg) 61 02/25/[address] Systolic (mm Hg) 90 02/25/2015 [place] Diastolic (mm Hg) 59 02/25/[address] [facility] [address] Respitory Rate 18 02/25/2015 [facility] Heart Rate 55 02/25/2015 [facility] Temperature Oral (F) 97.8 F 02/25/2015 [facility] Height 152.4 cm 02/24/2015 [facility] BMI Calculated 21.53 02/24/2015 [facility] Weight 50 02/24/2015 [facility] Heart Rate 85 02/18/2015 [facility] Temperature Oral (F) 97.3 F 02/18/2015 [facility] Systolic (mm Hg) 102 02/18/2015 [place] Diastolic (mm Hg) 69 02/18/[address] Respitory Rate 20 02/18/2015 [facility] Heart Rate 76 02/18/2015 [facility] Respitory Rate 20 02/18/2015 [facility] Systolic (mm Hg) 94 02/18/2015 [place] Diastolic (mm Hg) 69 02/18/[address] Temperature Oral (F) 97.5 F 02/18/2015 [facility] Temperature Oral (F) 97.9 F 02/18/2015 [facility] Systolic (mm Hg) 97 02/18/2015 [place] Diastolic (mm Hg) 69 02/18/[address] Respitory Rate 20 02/18/2015 [facility] Heart Rate 71 02/18/2015 [facility] Weight 51.051 02/17/2015 [facility] Height 152.4 cm 02/17/2015 [facility] BMI Calculated 21.98 02/17/2015 [facility] Weight 52.273 02/16/2015 [facility] BMI Calculated 22.51 02/16/2015 [facility] Height 152.4 cm 02/16/2015 [facility] Respitory Rate 16 12/25/2013 [facility] Heart Rate 60 12/25/2013 [facility] Diastolic (mm Hg) 66 12/25/[address] Systolic (mm Hg) 108 12/25/2013 [place] [facility] Temperature Oral (F) 98.3 F 12/25/2013 [facility] BMI Calculated 21.53 12/25/2013 [facility] Weight 50 12/25/2013 [facility] Height 152.4 cm 12/25/2013 [facility] Respitory Rate 18 12/25/2013 [facility] Heart Rate 63 12/25/2013 [facility] Diastolic (mm Hg) 71 12/25/[address] Systolic (mm Hg) 112 12/25/2013 [place] Temperature Oral (F) 98.8 F 12/25/2013 [facility] Heart Rate 61 12/23/2013 [facility] Systolic (mm Hg) 115 12/23/2013 [place] [facility] Respitory Rate 18 12/23/2013 [facility] Temperature Oral (F) 98.3 F 12/23/2013 [facility] Diastolic (mm Hg) 61 12/23/[address] Diastolic (mm Hg) 60 12/22/[address] [facility] [address] Temperature Oral (F) 98.4 F 12/22/2013 [facility] Systolic (mm Hg) 114 12/22/2013 [place] [facility] Respitory Rate 18 12/22/2013 [facility] Heart Rate 58 12/22/2013 [facility] Weight 50 12/22/2013 [facility] Temperature Oral (F) 98.7 F 12/22/2013 [facility] Systolic (mm Hg) 96 12/22/2013 [facility] Diastolic (mm Hg) 65 12/22/[address] [facility] [address] Respitory Rate 18 12/22/2013 [facility] Heart Rate 66 12/22/2013 [facility] Diastolic (mm Hg) 61 12/17/2013 [facility] Center Respitory Rate 18 12/17/2013 [facility] Systolic (mm Hg) 100 12/17/2013 [facility] dical Center Systolic (mm Hg) 98 12/17/2013 [facility] dical Center Diastolic (mm Hg) 52 12/17[facility]2013 [facility] 18 12/17/2013 [facility] Systolic (mm Hg) 78 12/17/2013 [facility] dical Center Diastolic (mm Hg) 38 12/17/2013 [facility] Temperature Oral (F) 98.1 F 12/17/2013 [facility] Respitory Rate 18 12/17/2013 [facility] Temperature Oral (F) 97.1 F 12/17/2013 [facility] Height 152.4 cm 12/17/2013 [facility] Weight 49.545 12/17/2013 [facility] BMI Calculated 21.33 12/17/2013 [facility] Temperature Oral (F) 98.1 F 12/17/2013 [facility] Height 152.4 cm 12/16/2013 [facility] BMI Calculated 20.94 12/16/2013 [facility] Weight 48.636 12/16/2013 [facility] Heart Rate 80 12/16/2013 [facility] Temperature Oral (F) 98 F 11/08/2013 [facility] Diastolic (mm Hg) 58 11/08/2013 [facility] Center Respitory Rate 16 11/08/2013 [facility] Center Systolic (mm Hg) 107 11/08/2013 [facility] (F) 97.6 F 11/08/2013 [facility] Diastolic (mm Hg) 56 11/08/2013 [facility] Systolic (mm Hg) 114 11/08/2013 [facility] dical Center Respitory Rate 18 11/08/2013 [facility] Systolic (mm Hg) 115 11/08/2013 [facility] dicia Center Respitory Rate 16 11/08/2013 [facility] Diastolic (mm Hg) 63 11/08/2013 [facility] Temperature Oral (F) 99.0 F 11/08/2013 [facility] Heart Rate 76 11/08/2013 [facility] Heart Rate 80 11/08/2013 [facility] [place] BMI Calculated 27.4 11/08/2013 [facility] Height 152.4 cm 11/08/2013 [facility] Weight 63.636 11/08/2013 [facility] Heart Rate 87 11/08/2013 [facility] [place] Encounters Location Location Encounter Encounter Reason Attending ADM DC Stat us Source Details Type Number For Provider Date Date Visit [facility] OBS [id number] _MAPID: Dustin 11/08 11/08 [facility] victoriano [place] [facility] [id number] GERMANRR Sacaroja /2013 [facility] Patient 6 [id number] Center [facility] OBS [id number] Alvarez 12/16 12/17 [facility] Observation 7 Beth [facility] Emergency [id number] Jann 12/22 12/23 [facility] 8 Nba /2013 [facility] EC Emergency [id number] Rishabh 12/25 12/25 [facility] 9 Dorothea Villagomez /2013 [facility] OBS [id number] Kalpna 02/16 02/18 [place] [facility] 0 Thu /2014 [facility] OBS [id number] Tucker 02/24 02/26 [place] [facility] 1 Dixon /2014 [facility] EC Emergency [id number] Tata Rushing 03/05 03/05 [facility] Center 2 /[address] [facility] EC Emergency [id number] Habacuc 03/11 03/11 [facility] 3 Dick /2014 [facility] Inpatient [id number] Catarino 03/21 03/24 [place] 4 [place] /2014 [facility] EC Emergency [id number] Isatu 03/30 03/30 [facility] 5 Akunyili /2014 [facility] EC Emergency [id number] Gilmar Pina 04/11 04/11 [place] [facility] EC Emergency [id number] Indira Henin 05/02 05/03 [facility] [place] [facility] EC Emergency [id number] Indira Henin 05/09 05/09 [facility] [place] [facility] EC Emergency [id number] Indira Henin 05/18 05/18 [facility] [place] [facility] EC Emergency [id number] Luzmaria Ware 06/04 06/04 [place] [facility] 0 /2014 [facility] EC Emergency [id number] Maribel 07/04 07/04 [facility] 1 Recio /[address] [facility] EC Emergency [id number] Hab[place] 07/05 07/05 [facility] 2 Dick /2014 [facility] OBS [id number] Janet 07/15 07/16 [place] [facility] 3 Anjel /2014 [facility] OBS [id number] Mateus Dixon 09/04 09/05 [place] [facility] 4 [facility] EC Emergency [id number] Good 02/28 03/01 [facility] 5 Garbino /2015 [facility] EC Emergency [id number] Rachele 03/05 03/06 [facility] 6 [place]adowole /[address] [facility] OBS [id number] Khadijat 03/11 03/12 [facility] Observation 7 Ogunbiyi [facility] [id number] Jose Frandy 04/14 04/14 [facility] Emergency [id number] Nando 09/15 09/15 [facility] 9 Weathers /[address] [facility] Observation [id number] Jessika Gallegomed 10/10 10/11 [facility] 0 [facility] Emergency [id number] Christopher 11/06 11/07 [facility] 1 Nava /2016 [facility] Emergency [id number] Abdullah 11/29 11/29 [facility] 2 Basnawi /2016 [facility] Emergency [id number] Jl 01/16 01/17 [facility] 3 [place] /2016 [facility] Emergency [id number] Mac 01/19 01/19 [facility] 4 Patel /2016 [facility] Procedures Procedure Code Date Perfomer Comments Source Cardiac [id number] [facility] catheterization Medical procedure Center,[facility] Stent [id number] cardiac [facility] placement<sup>1</sup> Med ical Center,[facility] Assessment and Plan Assessment and Plan Date Source Extracted from:Title: History and Physical 01/17/2017 [facility] Author: Kita Keating MD Date: 01/16/17 Assessment/Plan [...] use, and educated about increased risk of IA if taken concurrently with cocaine, due to [...] clinic. Extracted from:Title: History and Physical 10/11/2016 [facility] Author: Maurice Lazaro MD Date: 10/10/16 Assessment/Plan [...] Heparin sub q Disposition Pending clinical improvement [facility] hospitalist is primary, please pag [phone] with questions or concerns. Extracted from:Title: Progress Note Complex * 03/24/2015 [facility] Author: Catarino Fragoso MD Date: 03/24/15 Impression and Plan Chest pain; atypical no evidence of ischemia will cont B blo kers. Andominal pain: patient will go for Ct a bdomen, she had melena GI consult pending, H/H stable, cont PPI's Extracted from:Title: CARDIOLOGY 02/26/2015 PENELOPE Noriega [facility] Author: Arpan Alvarado MD Date: 02/25/15 CARDIOLOGY CONSULTATION # [id number] THANK YOU FOR THIS REFERRAL Carlitos ALVARADO [...] list: All Problems Asthma / SNOMED CT 165616548 / Confirmed Cardiac chest pain / SNOMED CT 2230806141 / Confirmed HTN - Hypertension / SNOMED CT 4564199914 / Confirmed Hyperlipidemia / SNOMED CT 96827729 / Confirmed Smoking cessation education / SNOMED CT 3385585611 / Confirm ed Tissue perfusion / SNOMED CT 1780181823 / Confirmed Objective Meds Scheduled Meds (4):atorvastatin, [...] Extracted from:Title: Cardiovascular Admission H&P * 014 [facility] Author: Erica Chatman MD Date: 12/16/13 Impression [...] adenosine stress test in AM, f/u results. 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 Extracted from:Title: Clinical Document 11/08/2013 [facility] Author: Dustin Wu Date: 11/08/2013 Date of [...] cardiac enzymes, home later in the day [facility] is primary. Please call [phone] with questions Plan of Care No Data Provided for This Section Social History Social History Date Source Social History TypeResponse 10/10/2016 [facility] Substance Abuse Use: Current. Type: Cocaine. [...] smoking cessation counceling Social History TypeResponse 10/10/2016 [facility] Substance Abuse Use: Current. Type: Cocaine. Alcohol [...] smoking cessation counceling Social History TypeResponse 10/10/2016 [facility] Substance Abuse Use: Current. Type: Cocaine. [...] smoking cessation counceling Social History TypeResponse 03/22/2015 [facility] Substance Abuse Use: None. Alcohol Past, [...]
--- OUTSIDE RECORDS SUMMARY | 2020-08-20 00:48 | XMS REPORT | Continuity of Care Document ---
:1950 Author Organization [facility] t Address [address] [place] [address] Care Team Providers Name Role Phone UNKNOWN [...] 2017-01-16 Memoria 5-21 20:56:00 l CHEST 00:00: [place] PAIN 00 [facility]/16[facility]2017 [facility] Diagnosis Active 2016-11-28 Mem oria 4-02 20:00:00 l PAIN 00:00: [place] 00 Active 11/28/2016 [facility] FACIAL Diagnosis Active 2016-11-06 Mem oria SWELLING 3-11 18:35:00 l FACIAL 00:00: [place] SWELLING 00 Active 11/06/2016 [facility] SYNCOPE Diagnosis Active 2017-02-18 Me moria 2-12 10:16:00 l SYNCOPE 00:00: [place] 00 Active 10/10/2016 [facility] SICK Diagnosis Active 2016-10-10 Mem oria 2-12 20:58:00 l SICK 00:00: [place] 00 Active 10/10/2016 [facility] CHEST Diagnosis Active 2016-03-12 Mem oria PAIN, 7-14 12:26:00 l HYPOTENSIO CHEST 00:00: Caroline nn N PAIN, 00 HYPOTENSIO N Active 03/11/2016 [facility] SOB Diagnosis Active 2016-03-11 Mem oria - 15:11:00 l SOB 00:00: [place] 00 Active 03/11/2016 [facility] BACK PAIN Diagnosis Active 2016-10-12 Memoria 09-14 14:26:00 l BACK 00:00: [place] PAIN 00 Active 09/14/2015 [facility] COPD, Diagnosis Active 2015-09-05 Mem oria CHEST PAIN 09-03 15:21:00 l COPD, 00:00: [place]iej CHEST PAIN 00 Active 09/03/2015 [facility] HEADACHE Diagnosis Active 2014-082015-07-15 M emoria 09-14 17:17:00 l HEADACHE 00:00: Kristopher n 00 Active 07/15/2015 [facility] SOB/ Diagnosis Active 2014-082015-07-05 Mem oria WEAKNESS 09-03 01:33:00 l SOB/ 22:00: [place] WEAKNESS 00 Active 07/04/2015 [facility] LOWER BACK Diagnosis Active 2014-082015-07-11 Memoria AND LEG 09-03 13:07:00 l PAIN LOWER 00:00: [place] BACK AND 00 LEG PAIN Active 07/04/2015 [facility] SHORTNESS Diagnosis Active 2014-082015-06-04 Memoria OF BREATH 0 01:54:00 l 19:00: [place] SHORTNESS 00 OF BREATH Active 06/03/2015 [facility] NAUSEA Diagnosis Active 2015-05-20 Mem oria 05-18 07:49:00 l NAUSEA 00:00: [place] 00 Active 05/18/2015 [facility] FALL Diagnosis Active 2015-05-02 Mem oria 05-02 16:55:00 l FALL 00:00: [place] 00 Active 05/02/2015 [facility] NECK AND Diagnosis Active 2015-03-30 M emoria SHOULDER 03-30 16:35:00 l PAIN NECK AND 00:00: Kristopher n SHOULDER 00 PAIN Active 03/30/2015 [facility] SOB/CHEST Diagnosis Active 2015-03-21 Memoria PAIN 03-21 15:46:00 l 00:00: Amciej SOB/CHEST 00 PAIN Active 03/21/2015 [facility] HYPOTENSIO Diagnosis Active 2015-03-31 Memoria N, CHEST 03-21 11:41:00 l PAIN 00:00: [place] HYPOTENSIO 00 N, CHEST PAIN Active 03/21/2015 [facility] LOWER BACK Diagnosis Active 2015-03-11 Memoria PAIN 03-11 15:56:00 l LOWER 00:00: Maciej BACK PAIN 00 Active 03/11/2015 [facility] UPPER BACK Diagnosis Active 2015-02-24 Memoria PAIN 02-24 15:44:00 l UPPER 00:00: [place] BACK PAIN 00 Active 02/24/2015 [facility] ACUTE Diagnosis Active 2015-02-26 Mem oria CHEST PAIN 02-24 09:02:00 l ACUTE 00:00: [place] CHEST PAIN 00 Active 02/24/2015 [facility] UNSTABLE Diagnosis Active 2015-02-19 M emoria ANGINA; 02-16 13:44:00 l HYPOTENSIO UNSTABLE 00:00: He rmann N ANGINA; 00 HYPOTENSIO N Active 02/16/2015 [facility] CHEST/LEG Diagnosis Active 2013-12-22 Memoria PAIN 12-22 18:23:00 l 00:00: [place] CHEST/LEG 00 PAIN Active 12/22/2013 [facility] OTHER Diagnosis Active 2013-12-16 Mem oria 4-20 20:50:00 l OTHER 00:00: [place] 00 Active 12/16/2013 [facility] ACS Diagnosis Active 2013-12-18 Mem oria 4-20 15:44:00 l ACS 00:00: [place] 00 Active 12/16/2013 [facility] Stented Problem Resolve 2017-01-22 Mem oria coronary d 04:26:21 l artery Stented [place] (finding) coronary artery (finding) Resolved Problem 01/22/2017 [facility] Problem Active 2017-01-22 Memor ia (disorder) 04:26:21 l Asthma Maciej (disorder) Active Problem 01/22/2017 [facility] Cardiac Problem Active 2017-01-22 Eleazar hilton chest pain 04:26:21 l (finding) Cardiac Herm sho chest pain (finding) Active Problem 01/22/2017 [facility], [facility] Hypertensi Problem Active 2017-01-22 M emoria ve 04:26:21 l disorder, [place] systemic Hypertensi arterial ve (disorder) disorder, systemic arterial (disorder) Active Problem 01/22/2017 [facility], [facility] Hyperlipid Problem Active 2017-01-22 M emoria emia 04:26:21 l (disorder) Kristopher n Hyperlipid emia (disorder) Active Problem 01/22/2017 [facility], [facility] Myocardial Problem Active 2017-01-22 M emoria infarction 04:26:21 l (disorder) Kristopher n Myocardial infarction (disorder) Active Problem 01/22/2017 [facility], [facility] Smoking Problem Active 2017-01-22 Eleazar hilton cessation 04:26:21 l advice Smoking [place] (regime/th cessation erapy) advice (regime/th erapy) Active Problem 01/22/2017 [facility], [facility] Substance Problem Active 2017-01-22 Me moria abuse 04:26:21 l (disorder) Kristopher n Substance abuse (disorder) Active Problem 01/22/2017 [facility] Tissue Problem Active 2017-01-22 Memor ia perfusion 04:26:21 l measure Tissue [place] (observabl perfusion e entity) measure (observabl e entity) Active Problem 01/22/2017 [facility], [facility] Heart Problem Active 2013-12-28 Memor ia disease 01:02:24 l (disorder) Heart Caroline nn disease (disorder) Active Problem 12/28/[address] [facility] INTERMED Diagnosis Active 2013-12-18 M emoria CORONARY 15:44:00 l SYND INTERMED Kristopher n CORONARY SYND Active [facility] ANGINA Diagnosis Active 2015-02-19 Mem oria DECUBITUS 13:44:00 l ANGINA [place] DECUBITUS Active [facility] HYPOTENSIO Diagnosis Active 2015-03-31 Memoria N NOS 11:41:00 l Maciej HYPOTENSIO N NOS Active [facility] SYNCOPE Diagnosis Active 2017-02-18 Me moria AND 10:16:00 l COLLAPSE SYNCOPE Caroline nn AND COLLAPSE Active [facility] Chest Problem 2017-01-19 2017-01-19 M emoria pain, 01-16 00:39:08 00:39:08 l unspecifie Chest 05:00: Caroline nn d pain, 00 unspecifie d 01/16/2017 01/19/2017 [facility] Urinary Problem 2016-12-01 2016-12-01 Memoria tract 4- 00:38:41 00:38:41 l infection, Urinary 05:00: Her farooq site not tract 00 specified infection, site not specified 11/28/2016 12/01/2016 [facility] Dorsalgia, Problem 2016-12-01 2016-12-01 Memoria unspecifie 4 00:38:41 00:38:41 l d 05:00: Maciej Dorsalgia, 00 unspecifie d 11/28/2016 12/01/2016 [facility] Bitten or Problem 2016-11-09 2016-11-09 Memoria stung by 3-11 03:02:23 03:02:23 l nonvenomou Bitten 06:00: Herm sho s insect or stung 00 and other by nonvenomou nonvenomou s s insect arthropods and other , initial nonvenomou encounter s arthropods , initial encounter 11/06/2016 11/09/2016 [facility] Discharge Problem 2016-04-17 2016-04-17 Memoria Diagnosis: 04-14 03:14:09 03:14:09 l Syncope, 05:00: [place] near Discharge 00 Diagnosis: Syncope, near 04/14/2016 04/17/2016 [facility] Discharge Problem 2016-03-08 2016-03-08 Memoria Diagnosis: 03-05 04:59:23 04:59:23 l Trichomona 05:00: Kristopher n s Discharge 00 vaginitis Diagnosis: Trichomona s vaginitis 03/05/2016 03/08/2016 [facility] Discharge Problem 2016-03-08 2016-03-08 Memoria Diagnosis: 03-05 04:59:23 04:59:23 l Lumbago 05:00: Maciej Discharge 00 Diagnosis: Lumbago 03/05/2016 03/08/2016 [facility] Discharge Problem 2015-2016-03-03 2016-03-03 Memoria Diagnosis: 7- 00:43:25 00:43:25 l Bronchitis 05:00: Kristopher n Discharge 00 Diagnosis: Bronchitis 02/29/2016 03/03/2016 [facility] Discharge Problem 2015-05-21 2015-05-21 Memoria Diagnosis: 05-18 01:04:08 01:04:08 l Abdominal 05:00: [place] pain, Discharge 00 acute, Diagnosis: epigastric Abdominal pain, acute, epigastric 05/18/2015 05/21/2015 [facility] Discharge Problem 2015-05-12 2015-05-12 Memoria Diagnosis: 05-09 07:40:44 07:40:44 l Chest pain 05:00: Kristopher n Discharge 00 Diagnosis: Chest pain 05/09/2015 05/12/2015 [facility] Discharge Problem 2015-05-05 2015-05-05 Memoria Diagnosis: 05-02 10:45:36 10:45:36 l Vertigo 05:00: [place] Discharge 00 Diagnosis: Vertigo 05/02/2015 05/05/2015 [facility] Discharge Problem 2015-05-05 2015-05-05 Memoria Diagnosis: 05-02 10:45:36 10:45:36 l Syncope 05:00: Maciej and Discharge 00 collapse Diagnosis: Syncope and collapse 5 05/05/2015 [facility] Discharge Problem 2015-04-14 2015-04-14 Memoria Diagnosis: 04-11 05:25:30 05:25:30 l Knee pain, 05:00: Kristopher n right Discharge 00 Diagnosis: Knee pain, right 04/11/2015 04/14/2015 [facility] Discharge Problem 2015-04-14 2015-04-14 Memoria Diagnosis: 04-11 05:25:30 05:25:30 l Lumbar 05:00: [place] spondylosi Discharge 00 s Diagnosis: Lumbar spondylosi s 04/11/2015 04/14/2015 [facility] Discharge Problem 2015-04-14 2015-04-14 Memoria Diagnosis: 04-11 05:25:30 05:25:30 l Anterolist 05:00: Kristopher n hesis Discharge 00 Diagnosis: Anterolist hesis 04/11/2015 04/14/2015 [facility] Discharge Problem 2015-04-14 2015-04-14 Memoria Diagnosis: 04-11 05:25:30 05:25:30 l Accidental 05:00: Kristopher n fall Discharge 00 Diagnosis: Accidental fall 04/11/2015 04/14/2015 [facility] Discharge Problem 2015-04-02 2015-04-02 Memoria Diagnosis: 03-30 00:46:48 00:46:48 l Chronic 05:00: Maciej pain in Discharge 00 right Diagnosis: shoulder Chronic pain in right shoulder 04/02/2015 [facility] Discharge Problem 2015-03-14 2015-03-14 Memoria Diagnosis: 03-11 09:47:20 09:47:20 l Chest wall 05:00: Kristopher n muscle Discharge 00 strain Diagnosis: Chest wall muscle strain 03/11/2015 03/14/2015 [facility] Discharge Problem 2015-03-08 2015-03-08 Memoria Diagnosis: 03-05 04:07:57 04:07:57 l Dyspnea 05:00: Maciej Discharge 00 Diagnosis: Dyspnea 03/05/2015 03/08/2015 [facility] Allergies, Adverse Reactions, Alerts Allergy Allergy Status Severity Reaction(s) Onset Inactive Treating Comm ents Source Name Type Date Date Clinician Penicill Propensi Active [place] ins ty to 01-02 Health adverse 00:00: reaction 00 s to drug penicill penicill Active Memori a ins ins l [place] Social History Social Habit Start Date Stop Date Quantity Comments Source Sex Assigned At [facility] Social History 2015-03-22 2015-03-22 [facility] 02:16:03 02:16:03 Medications Ordered Filled Start Stop Current Ordering Indication Dosage Frequency Signature Comments Components Source Medication Medication Date Date Medication? Clinician (SIG) Name Name metoprolol Yes Other chest 25mg Q.5D Take 1 [place] tartrate 7-11 pain tablet by [facility] (LOPRESSOR) 00:00: mouth 2 25 mg 00 times tablet daily. naproxen Yes Chronic 375mg Take 1 [facility] ris (NAPROSYN) 7-11 bilateral tablet by [facility] 375 mg 00:00: low back mouth 2 [...] Chloride 5-24 2,000 l 0.154 18:00: ml/hr, [place] MEQ/ML 00 Infuse Injectable Over: 30 Solution [...] INHALATION l 0.09 03:43: , Q4H, PRN [place] MG/ACTUAT 00 as needed Dry Powder for [...] PO, l Oral 03:41: BID, X 7 Maciej Capsule 00 day, # 14 [Macrobid] cap, 0 Refill(s) Tramadol No Notes: Not Mem oria - to exceed l 03:02: 400mg/day. [place] 00 (Same As: Ultram) Albuterol No Notes: Memori a 0.833 MG/ML - (Same as: l / 00:23: Duoneb) Maciej Ipratropium 00 Nichols 0.167 MG/ML Inhalant Solution [DuoNeb] Saline No Notes: Memoria Flush 0.9% - preservati l 00:23: ve free. Maciej 00 Mupirocin Yes 1 appl, Memor ia 0.02 MG/MG 3-12 TOP, TID, l Topical 02:49: PRN as [place] Ointment 00 needed, [Bactroban] Apply to affected area(s), X 14 day, # 60 gm, 0 Refill(s) Saline No Notes: Memoria Flush 0.9% 3-12 (Same as: l 00:51: BD [place]iej Posiflush) atorvastati No Notes: Eleazar hilton n 2-14 Same as l 03:00: Lipitor [place] remove No Notes: Memoria patch 2-14 Remove l 03:00: patch 12 Maciej 00 hours after applicatio n each day. metoprolol No Notes: Memor ia tartrate 2-13 (Same as: l 15:00: Lopressor) Maciej 00 12.5 mg=1/2 X 50 mg TAB heparin No Notes: Memoria sodium, 2-13 porcine l porcine 15:00: heparin [place] 2500 UNT/ML 00 Injectable Solution Protonix No Notes: Memoria 2-13 Tablet l 15:00: should not [place] 00 be chewed or crushed. (Same as: Protonix) Symbicort No Notes: Memori a 160/4.5 2-13 (Same as: l inhalation 15:00: Symbicort) H ermann aerosol 00 WASTE: with Aerosol - adapter Return to Pharmacy Aspirin 325 No Notes: Eleazar hilton MG Oral 2-13 Take with l Tablet 15:00: food. [place] Omeprazole No 20 mg, Memor ia 2-13 Route: PO, l 15:00: Drug form: Maciej 00 ECTAB, BID, Dosing Weight 50, kg, Start date: 10/11/16 9:00:00 [employer], Duration: 30 day, Stop date: 11/09/16 17:00:00 CDT potassium No Notes: Memori a chloride 2-13 (Same as: l 06:02: K-Dur 20) [place] 00 "Do Not Crush" With food and [...] Memoria 2-13 (Same as: l 02:07: Colace) [place] 00 (Do Not Crush) Morphine No Notes: Memoria 2-13 (Same l 02:07: as:MORPhin Mac[place] 00 e Sulfate) Acetaminoph No Notes: Eleazar hilton en 325 MG / 2-13 (Same as: l Hydrocodone 02:07: [place] Caroline nn Bitartrate 00 325/5) Do 5 [...] 2-12 (Same as: l 19:48: K-Dur 20) Maciej 00 "Do Not Crush" With food and full glass of water Aspirin No Notes: Memoria 2-12 Take with l 18:33: food. [place] 00 B-3-50 No 50 mg, Memoria 1-18 Route: PO, l 15:00: Daily, Dosing Weight 50, kg, Start date: 09/15/16 9:00:00 [employer], Duration: 30 day, Stop date: 10/14/16 9:00:00 [employer] tramadol Yes 50 mg = 1 Eleazar hilton hydrochlori 8-17 tab, PO, l de 50 MG 06:12: BID, X 15 Herm sho Oral Tablet 00 day, # 30 tab, 0 Refill(s) Acetaminoph No Notes: Eleazar hilton en 325 MG / 8-17 (Same as: l Hydrocodone 05:13: [place] Caroline nn Bitartrate 00 325/5) Do 5 MG Oral not exceed Tablet 4gm/day of [[place] acetaminop 5/325] hen. atorvastati No Notes: Eleazar hilton n 7-16 (Same as: l 02:00: Lipitor) [place] 00 200 ACTUAT No Notes: Memor ia Albuterol 7-15 Same as: l 0.09 16:00: Ventolin [place] MG/ACTUAT 00 HFA Metered WASTE: Dose Aerosol [...] hilton 7-15 (Same As: l 14:00: Plavix) [place] 00 Aspirin 325 No Notes: Eleazar hilton MG Oral 7-15 Take with l Tablet 14:00: food. [place] 00 tramadol No Notes: Not Mem oria [...] 0.9% 7-15 (Same as: l 02:00: BD Maciej Posiflush) Saline No Notes: Memoria Flush 0.9% 7-14 (Same as: l 23:45: BD [place] 00 Posiflush) Sodium No 1,000 mL, Memori a Chloride 7-14 1,000 l 0.154 20:57: ml/hr, Mac[place] MEQ/ML 00 Infuse Injectable Over: 1 Solution Hour, Route: IV, ONCE, Priority: STAT, Dosing Weight 50 kg, Start date: 03/11/16 15:57:00 CDT, Duration: 1 doses or times, Stop date: 03/11/16 15:57:00 CDT Sodium No 1,000 mL, Memori a Chloride 7-14 1,000 l 0.154 20:56: ml/hr, [place] MEQ/ML 00 Infuse Injectable Over: 1 Solution Hour, Route: IV, ONCE, Priority: STAT, Dosing Weight 50 kg, Start date: 03/11/16 15:56:00 CDT, Duration: 1 doses or times, Stop date: 03/11/16 15:56:00 CDT Saline No Notes: Memoria Flush 0.9% 03-11 (Same as: l 20:05: BD Maciej 00 Posiflush) Nitroglycer No Notes: Eleazar hilton in 03-11 (Same l 20:05: as:Nitroqu [place] ick, Nitrostat) "Do Not Crush" Sublingual tablet [...] tab, PO, l Tablet 02:07: BID, PRN Maciej [Naprosyn] 00 Pain Score 6-10, # 60 tab, 0 Refill(s) Zofran No Notes: Memoria 03-06 (Same as: l 00:55: Zofran [place] 00 ODT) Acetaminoph No Notes: Eleazar hilton en 325 MG / 03-06 (Same as: l Hydrocodone 00:55: [place] Caroline nn Bitartrate 00 325/5) Do 5 MG Oral not exceed Tablet 4gm/day of [[place] acetaminop 5/325] hen. Flagyl No Notes: Memoria 03-06 (Same as: l 00:55: Flagyl) [place] 00 Take with food/ avoid alcohol predniSONE Yes 40 mg = 2 Me moria 20 mg oral 03-01 tab, PO, l tablet 01:00: Daily, X 3 Caroline nn 00 day, # 6 tab, 0 Refill(s) 200 ACTUAT Yes 2 puff, Eleazar hilton Albuterol 03-01 INHALATION l 0.09 01:00: , Q4H, PRN [place] MG/ACTUAT 00 for Metered wheezing, Dose # 9 gm, 0 Inhaler Refill(s) [ProAir HFA] Potassium No Notes: Memori a Chloride 20 02-28 (Same as: l MEQ 23:48: K-Dur 20) Maciej Extended 00 "Do Not Release Crush" Tablet With food and full glass of water Albuterol No Notes: Memori a 0.833 MG/ML 02-28 (Same as: l / 22:53: Duoneb) [place] Ipratropium 00 [place] 0.167 MG/ML Inhalant Solution [DuoNeb] Symbicort Yes [...] tab, PO, l Tablet 13:20: Daily, 0 [place] 00 Refill(s) atorvastati No Notes: Eleazar hilton n -08 (Same as: l 03:00: Lipitor) [place] 00 Solu-Medrol No Notes: Eleazar hilton 1-07 (Same l 22:00: as:Solu-ME [place] 00 DROL, A-Methapre d) 24 HR No Notes: Memoria Metoprolol - (Same as: l Tartrate 25 15:00: Toprol XL) Maciej MG Extended 00 Do Not Release Crush Tablet [Toprol] clopidogrel No Notes: Eleazar hilton -07 (Same As: l 15:00: Plavix) Maciej 00 Protonix No Notes: Memoria -07 Tablet l 15:00: should not Maciej 00 be chewed or crushed. (Same as: Protonix) Aspirin 325 No Notes: Eleazar hilton MG Oral 09-04 Take with l Tablet 15:00: food. Omeprazole No 20 mg, Memor ia 09-04 Route: PO, l 15:00: Drug form: Maciej ECTAB, BID, Dosing Weight 50.92, kg, Start [...] l / 14:00: Duoneb) [place] Ipratropium 00 Nichols 0.167 MG/ML Inhalant Solution methylPREDN No Notes: Eleazar hilton ISolone 09-04 (Same l SODium 14:00: as:Solu-ME Caroline nn SUCCinate 00 DROL, A-Methapre d) methylPREDN No Notes: Eleazar hilton ISolone 09-04 (Same l SODium 04:05: as:Solu-ME [place] nn SUCCinate 00 DROL, A-Methapre d) Albuterol No Notes: Memori a 0.833 MG/ML 09-04 (Same as: l / 04:05: Duoneb) [place] Ipratropium 00 Nichols 0.167 MG/ML Inhalant Solution Saline No Notes: Memoria Flush 0.9% 1-07 (Same as: l 04:05: BD [place] 00 Posiflush) atorvastati 2014-08 No Notes: Eleazar hilton n 1-19 (Same as: l 03:00: Lipitor) metoprolol 2014-08 Yes 12.5 mg = Me moria tartrate 25 1-18 0.5 tab, l mg oral 17:40: PO, BID, # Herm sho tablet 00 60 tab, 0 Refill(s) clopidogrel 2014-08 Yes 75 mg = 1 M emoria 75 mg oral 1-18 tab, PO, l tablet 17:40: Daily, # Maciej 00 30 tab, 1 Refill(s) atorvastati 2014-08 Yes 80 mg = 2 M emoria n 40 mg 1-18 tab, PO, l oral tablet 17:40: Bedtime, # [place] 00 60 tab, 1 Refill(s) 200 ACTUAT [...] Memoria 1-18 Tablet l 13:30: should not [place] 00 be chewed or crushed. (Same as: Protonix) Albuterol 2014-08 No Notes: Memori a 0.833 MG/ML -18 (Same as: l / 03:38: Duoneb) Ipratropium 00 Nichols 0.167 MG/ML Inhalant Solution Sodium 2014-08 No 250 mL, Memoria Chloride -18 Route: l 0.9% IV 03:26: IVPB, Maciej Start date: 07/15/15 21:26:00, Duration: 30 day, Stop date: 08/14/15 21:25:00, PRN Line Flush BD Normal 2014-08 No Notes: Memori a Saline 09-15 (Same as: l Flush 03:26: BD [place] 00 Posiflush) Nitroglycer 2014-08 No Notes: Eleazar hilton in 09-15 (Same l 03:23: as:Nitroqu [place] 00 ick, Nitrostat) "Do Not Crush" Sublingual tablet Ibuprofen 2014-08 No Notes: Memori a 09-15 (Same as: l 03:20: Motrin) [place] 00 "Do Not Crush" Give with food. Baclofen 2014-08 No Notes: Memoria 09-15 (Same As: l 03:20: Lioresal) [place] 00 200 ACTUAT 2014-08 No Notes: Memor ia Albuterol 09-15 Albuterol l 0.09 03:20: 90 [place] MG/ACTUAT 00 microgram/ Metered inh 8gm Dose [...] 0.9% 18 (Same as: l 02:39: BD [place] 00 Posiflush) Aspirin 2014-08 No 324 mg, Memoria 09-14 Route: PO, l 20:15: ONCE, [place] 00 Dosing Weight 50, kg, Priority: STAT, Start date: 07/15/15 14:15:00, Stop date: 07/15/15 14:15:00 Saline 2014-08 No Notes: Memoria Flush 0.9% 1-17 (Same as: l 20:15: BD [place] 00 Posiflush) Sodium No 500 mL, Memoria Chloride 9-20 500 ml/hr, l 0.154 21:02: Infuse Maciej MEQ/ML 00 Over: 1 Injectable Hour, Solution [...] tab, PO, l tablet 23:45: TID, PRN [place] 00 for dizziness, X 20 day, # [...] / 8- Same as l Hydrocodone 17:21: [place] Caroline nn Bitartrate 00 325-7.5mg 7.5 MG Oral Do not Tablet exceed [[place] 4gm/day of 7.5/325] acetaminop hen. ibuprofen Yes [...] Memori a - (Same l 17:35: as:Chronul [place] 00 ac) atorvastati No Notes: Eleazar hilton [...] hilton 7-25 (Same As: l 16:00: Plavix) [place] 00 metoprolol Yes 12.5 mg = Me moria tartrate 25 7-25 0.5 tab, l mg oral 02:19: PO, BID, # Herm sho tablet 00 180 tab, 0 Refill(s) clopidogrel Yes 75 mg = 1 M emoria 75 mg oral 7-25 tab, PO, l tablet 02:19: Daily, # [place] 00 30 tab, 0 Refill(s) omeprazole Yes [...] INHALATION l 0.09 02:19: , Q4H, PRN [place] MG/ACTUAT 00 for Metered wheezing, Dose # 9 gm, 0 Inhaler Refill(s) Ondansetron No Notes: Eleazar hilton 7-25 (Same as: l 02:12: Zofran) [place] 00 MEDICATION WASTE Product Size: 4 mg Product Wasted: ___ mg Docusate No Notes: Memoria 7-25 (Same as: l 02:12: Colace) [place] 00 (Do Not Crush) Acetaminoph No Notes: Do M emoria en 7-25 not exceed l 02:12: 4 gm/day. Mac[place] 00 (Same as: Tylenol) Budesonide No Notes: Memor ia 0.25 MG/ML 7-25 (Same As: l Inhalant 01:00: Pulmicort) Her farooq Solution 00 [Pulmicort] Albuterol No Notes: Memori a 0.833 MG/ML 7-25 (Same as: l / 01:00: Duoneb) Maciej Ipratropium 00 Nichols 0.167 MG/ML Inhalant Solution [DuoNeb] Potassium No Notes: Memori a Chloride 24 (Same as: l 1.33 MEQ/ML 23:15: Potassium H ermann Oral 00 Chloride) Solution Sodium No 1,000 mL, Memori a Chloride 24 1,000 l 0.154 22:23: ml/hr, [place] MEQ/ML 00 Infuse Injectable Over: 1 Solution hr, Route: IV, ONCE, Priority: STAT, Dosing Weight 50 kg, Start date: 03/21/15 17:23:00, Duration: 1 doses or times, Stop date: 03/21/15 17:23:00 Sodium No 1,000 mL, Memori a Chloride 24 1,000 l 0.154 21:12: ml/hr, [place] MEQ/ML 00 Infuse Injectable Over: 1 Solution hr, Route: IV, 1,000, Drug form: INJ, ONCE, Priority: STAT, Dosing Weight 50 kg, Start date: 03/21/15 16:12:00, Duration: 1 doses or times, Stop date: 03/21/15 16:12:00 Ondansetron No Notes: Eleazar hilton 24 (Same as: l 20:43: Zofran) [place] 00 MEDICATION WASTE Product Size: 4 mg Product Wasted: ___ mg Morphine No Notes: Memoria -24 (Same l 20:43: as:MORPhin [place] 00 e Sulfate) Aspirin No Notes: Memoria -24 Take with l 20:43: food. [place] 00 Saline No Notes: Memoria Flush 0.9% 03-21 (Same as: l 20:43: BD [place] 00 Posiflush) tramadol No 50 mg = 1 Eleazar hilton hydrochlori 14 tab, PO, l de 50 MG 22:02: Q4H, PRN [place] nn Oral Tablet 00 pain, # 20 [Ultram] tab, 0 Refill(s) Aspirin No Notes: Memoria 7-14 Take with l 20:32: food. [place] 00 Morphine No Notes: Memoria 7-14 (Same l 20:32: as:MORPhin [place] 00 e Sulfate) Ondansetron No Notes: Eleazar hilton 7-14 (Same as: l 20:32: Zofran) MEDICATION WASTE Product Size: 4 mg Product Wasted: ___ mg Saline No Notes: Memoria Flush 0.9% 03-11 (Same as: l 20:32: BD [place] 00 Posiflush) Famotidine No 20 mg, 1 Mem oria 20 MG Oral 7-08 tab, l Tablet 14:00: Route: PO, Caroline nn [Pepcid] 00 BID, Dosing Weight 50, kg, Start date: 03/05/15 9:00:00, Duration: 30 day, Stop date: 04/03/15 17:00:00 MDI Inhaler Yes Special Mem oria Spacer 03-05 Instructio l 09:13: ns: Use as Mac[place] directed 200 ACTUAT Yes 1 puff, Eleazar hilton Albuterol 08 INHALATION l 0.09 09:12: , Q4H, PRN [place] MG/ACTUAT 00 for Metered wheezing, Dose # [...] Memoria 7-08 Take with l 06:11: food. [place] remove No Notes: Memoria patch 7- Remove old l 14:00: patch [place] 00 before applicatio n of new patch. Plavix No Notes: Memoria 6-30 (Same As: l 14:00: Plavix) [place] 00 Omeprazole No 20 mg, Memor ia [...] PO, l oral tablet 13:32: Bedtime, # [place] 46 60 tab, 0 Refill(s) omeprazole Yes [...] tab, PO, l Tablet 13:32: Daily, # [place] [Plavix] 00 30 tab, 0 Refill(s) Protonix [...] Notes: Memoria 02-24 (Same l 16:54: as:MORPhin [place] 00 e Sulfate) remove No Notes: Memoria [...] tab, PO, l tablet 20:24: BID, PRN [place] 00 Pain, # 30 tab, 0 Refill(s) [...] PO, l oral tablet 20:24: Bedtime, # [place] 00 30 tab, 0 [...] PO, l oral tablet 17:00: Bedtime, # [place] 00 60 tab, 0 Refill(s) Nicotine No Notes: Memoria 6-22 (Same as: l 14:00: Habitrol) [place] 00 "Remove old patch before applicatio n of new patch" Aspirin 81 No Notes: Do Me moria MG Enteric -22 not crush l Coated 14:00: or chew. [place] Tablet 00 (Same As: Ecotrin) Sodium No [...] tab, PO, l Tablet 02:37: Daily, # [place] [Plavix] 00 30 tab, 0 Refill(s) Enoxaparin No Notes: Memor ia 02-17 Nurse to l 02:30: ensure documentat ion of patient education per anticoagul ation policy. (Same as: Lovenox) Tessalon No Notes: Memoria Perles 02-17 (Same As: l 02:08: Tessalon Perles) "Do Not Crush" Acetaminoph No Notes: Do M emoria en 02-17 not exceed l 02:08: 4 gm/day. [place] 00 (Same as: Tylenol) Diphenhydra No Notes: Eleazar hilton mine 02-17 (Same as: l 02:08: Benadryl) Dextrometho No Notes: Eleazar hilton rphan 02-17 (dextromet l Hydrobromid 02:08: horphan-gu [place] e 2 MG/ML / 00 aifenesin Guaifenesin 10-100mg/5 20 MG/ML ml 10 ml Oral oral SOLN Solution ud) (Same as: Robitussin DM) Simethicone No Notes: Eleazar hiltno 02-17 (Same as: l 02:08: Mylicon) Bisacodyl No Notes: Memori a 02-17 (Same As: l 02:08: DulcolaxDeandreWoodbridge 00 [place]-Lax) Ondansetron No Notes: Eleazar hilton [...] 02-17 not exceed l 02:06: 4 gm/day. [place] 00 (Same as: Tylenol) Acetaminoph No Notes: Eleazar hilton en 325 MG / 02-17 (Same as: l Hydrocodone 02:06: [place] Caroline nn Bitartrate 00 325/5) Do 5 MG Oral not exceed Tablet 4gm/day of acetaminop hen. Morphine No Notes: Memoria 02-17 (Same l 02:06: as:MORPhin [place] 00 e Sulfate) Sodium No 1,000 mL, Memori a Chloride 02-17 Rate: 125 l 0.154 02:06: ml/hr, [place] MEQ/ML 00 Infuse Injectable over: 8 Solution [...] 02-17 Route: l 0.9% IV 00:52: IVPB, [place] 00 Start date: 02/16/15 19:52:00, Duration: 30 day, Stop date: 03/18/15 19:51:00, PRN Line Flush BD Normal No Notes: Memori a Saline 02-17 (Same as: l Flush 00:52: BD [place] Posiflush) Morphine No Notes: Memoria 02-17 (Same l 00:28: as:MORPhin [place] 00 e Sulfate) Nitroglycer No Notes: Eleazar hilton in 02-17 (Same l 00:28: as:Nitroqu [place] 00 ick, Nitrostat) "Do Not Crush" Sublingual tablet Aspirin No Notes: (Do Eleazar hilton 02-16 Not Crush) l 22:49: Do not [place] 00 crush or chew. Ondansetron No Notes: Eleazar hilton 4-26 (Same as: l 21:22: Zofran) Morphine No Notes: Memoria 4-26 (Same l 21:22: as:MORPhin e Sulfate) Aspirin / No Notes: Memori a Calcium 4-26 Take with l Carbonate 21:22: food. Aspirin 81 Yes 81 mg = 1 Me moria MG Enteric 4-21 tab, PO, l Coated 20:08: Daily, # [place] Tablet 00 90 tab, 0 Refill(s) metoprolol Yes 12.5 mg = Me moria tartrate 25 4-21 0.5 tab, l mg oral 20:08: PO, BID, # Herm sho tablet 00 90 tab, 0 Refill(s) clopidogrel Yes 75 mg = 1 M emoria 75 mg oral 4-21 tab, PO, l tablet 20:08: Daily, # [place] 00 90 tab, 0 Refill(s) atorvastati Yes 20 mg = 1 M emoria n 20 mg 4-21 tab, PO, l oral tablet 20:08: Bedtime, # [place] 00 90 tab, 0 Refill(s) metoprolol No [...] n 12-17 (Same As: l 03:28: Lipitor) [place] 00 Saline No Notes: Memoria Flush 0.9% 12-17 (Same as: l 03:25: BD [place] 00 Posiflush) Nitroglycer No Notes: Eleazar hilton in 12-17 (Same l 03:25: as:Nitroqu [place] 00 ick, Nitrostat) "Do Not Crush" Sublingual tablet atorvastati No 20 mg = 1 M emoria n 20 mg 12-17 tab, PO, l oral tablet 01:48: Bedtime, # [place] 00 30 tab, 0 Refill(s) clopidogrel No [...] Chloride 20 1,000 l 0.154 23:43: ml/hr, [place] MEQ/ML 00 Infuse Injectable Over: 1 Solution hr, Route: IV, 1,000, Drug form: INJ, ONCE, Priority: STAT, Dosing Weight 48.636 kg, Start date: 12/16/13 18:43:00, Duration: 1 doses or times, Stop date: 12/16/13 18:43:00 Iohexol No Special Memoria 20 Instructio l 21:17: ns: Dose = [place] 00 2.2ml/kg, Max dose = 100ml -- [...] n 3-14 tab, l 02:00: Route: PO, [place] 00 Drug form: TAB, Bedtime, Dosing Weight [...] PO, l oral tablet 20:52: Bedtime, # [place] 00 30 tab, 0 Refill(s) Aspirin 81 [...] 0.9% 11-08 Route: l 12:06: MISC, Drug [place] 00 Form: INJ, Dosing Weight 63.636, kg, PRN, PRN Line Flush, Start date: 11/08/13 7:06:00, Duration: 30 day, Stop date: 12/08/13 7:05:00([facility] as: BD Posiflush) Nitroglycer No 0.4 mg, [...] Systolic (mm Hg) 2017-01-19 23:16:00 Eleazar rial [place] Diastolic (mm Hg) 2017-01-19 23:16:00 Mem orial [place] Respitory Rate 2017-01-19 23:16:00 Memori al [place] Systolic (mm Hg) 2017-01-19 22:28:00 Eleazar rial [place] Diastolic (mm Hg) 2017-01-19 22:28:00 Mem orial [place] Respitory Rate 2017-01-19 22:28:00 [facility] al [place] Respitory Rate 2017-01-19 21:00:00 Memori al [place] Systolic (mm Hg) 2017-01-19 20:00:00 Eleazar rial [place] Diastolic (mm Hg) 2017-01-19 20:00:00 Mem orial [place] Weight 2017-01-19 17:23:00 [facility] [place] BMI Calculated 2017-01-19 17:23:00 [facility] al [place] Height 2017-01-19 17:23:00 152.4 cm [facility] [place] Temperature Oral (F) 2017-01-19 17:23:00 97.0 F [facility] [place] Heart Rate 2017-01-19 17:23:00 [facility] [place] Systolic (mm Hg) 2017-01-17 02:10:00 Eleazar rial [place] Diastolic (mm Hg) 2017-01-17 02:10:00 Mem orial [place] Respitory Rate 2017-01-17 02:10:00 Mem[facility] al [place] Systolic (mm Hg) 2017-01-17 01:21:00 Eleazar rial [place] Diastolic (mm Hg) 2017-01-17 01:21:00 Mem orial [place] Respitory Rate 2017-01-17 01:21:00 [facility] al [place] Temperature Oral (F) 2017-01-17 01:21:00 98.1 F [facility] [place] Systolic (mm Hg) 2017-01-17 00:28:00 Eleazar rial [place] Diastolic (mm Hg) 2017-01-17 00:28:00 Mem orial [place] Respitory Rate 2017-01-17 00:28:00 [facility]ori al [place] Heart Rate 2017-01-16 23:24:00 [facility] [place] Temperature Oral (F) 2017-01-16 23:24:00 98 F [facility] [place] Weight 2017-01-16 23:24:00 [facility] [place] Heart Rate 2016-11-29 03:44:00 [facility] [place] Systolic (mm Hg) 2016-11-29 03:44:00 Eleazar rial [place] Diastolic (mm Hg) 2016-11-29 03:44:00 Mem o[facility] [place] Respitory Rate 2016-11-29 03:44:00 [facility] al [place] Temperature Oral (F) 2016-11-29 03:44:00 98.7 F [facility] [place] Heart Rate 2016-11-29 03:24:00 [facility] [place] Respitory Rate 2016-11-29 03:24:00 [facility] [place] Systolic (mm Hg) 2016-11-29 03:24:00 Eleazar rial [place] Diastolic (mm Hg) 2016-11-29 03:24:00 Mem orial [place] Heart Rate 2016-11-29 02:51:00 [facility] [place] Respitory Rate 2016-11-29 02:51:00 Mem[facility] al [place] Systolic (mm Hg) 2016-11-29 02:51:00 Eleazar rial [place] Diastolic (mm Hg) 2016-11-29 02:51:00 [facility] [place] Weight 2016-11-29 00:21:00 [facility] [place] BMI Calculated 2016-11-29 00:21:00 [facility] al [place] Height 2016-11-29 00:21:00 152.4 cm [facility] [place] Temperature Oral (F) 2016-11-29 00:21:00 98.6 F [facility] [place] Respitory Rate 2016-11-07 02:47:00 [facility] [place] Heart Rate 2016-11-07 02:47:00 [facility] [place] Temperature Oral (F) 2016-11-07 02:47:00 98.2 F [facility] [place] Systolic (mm Hg) 2016-11-07 02:47:00 Eleazar rial [place] Diastolic (mm Hg) 2016-11-07 02:47:00 Mem orial [place] Heart Rate 2016-11-07 02:22:00 [facility] [place] Respitory Rate 2016-11-07 02:22:00 Mem[facility] al [place] Systolic (mm Hg) 2016-11-07 02:22:00 Eleazar rial [place] Diastolic (mm Hg) 2016-11-07 02:22:00 [facility] o[facility] [place] Weight 2016-11-06 23:37:00 [facility] [place] Heart Rate 2016-11-06 23:37:00 [facility] [place] Temperature Oral (F) 2016-11-06 23:37:00 98.3 F [facility] [place] Respitory Rate 2016-11-06 23:37:00 Memori al [place] Systolic (mm Hg) 2016-11-06 23:37:00 Eleazar rial [place] Diastolic (mm Hg) 2016-11-06 23:37:00 Mem orial [place] Respitory Rate 2016-10-11 18:24:00 Mem[facility] al [place] Temperature Oral (F) 2016-10-11 18:24:00 97.9 F [facility] [place] Systolic (mm Hg) 2016-10-11 18:24:00 Eleazar rial [place] Diastolic (mm Hg) 2016-10-11 18:24:00 Mem orial [place] Heart Rate 2016-10-11 18:24:00 [facility] [place] Heart Rate 2016-10-11 13:53:00 [facility] [place] Systolic (mm Hg) 2016-10-11 13:53:00 Eleazar rial [place] Diastolic (mm Hg) 2016-10-11 13:53:00 Mem orial [place] Temperature Oral (F) 2016-10-11 13:53:00 98.1 F [facility] [place] Temperature Oral (F) 2016-10-11 10:16:00 99.0 F [facility] [place] Respitory Rate 2016-10-11 10:16:00 [facility] al [place] Heart Rate 2016-10-11 10:16:00 [facility] [place] Systolic (mm Hg) 2016-10-11 10:16:00 Eleazar rial [place] Diastolic (mm Hg) 2016-10-11 10:16:00 [facility] [place] Weight 2016-10-11 06:46:00 [facility] [place] BMI Calculated 2016-10-11 06:46:00 [facility] [place] Height 2016-10-11 06:46:00 152.4 cm [facility] [place] Respitory Rate 2016-10-11 06:39:00 [facility] [place] Height 2016-10-10 17:48:00 152.4 cm [facility] [place] BMI Calculated 2016-10-10 17:48:00 [facility] [place] Weight 2016-10-10 17:48:00 [facility] [place] BMI Calculated 2016-09-15 04:26:00 [facility] [place] Weight 2016-09-15 04:26:00 [facility] [place] Height 2016-09-15 04:26:00 152.4 cm [facility] [place] Systolic (mm Hg) 2016-09-15 04:26:00 Eleazar rial [place] Diastolic (mm Hg) 2016-09-15 04:26:00 Mem orial [place] Respitory Rate 2016-09-15 04:26:00 [facility] [place] Heart Rate 2016-09-15 04:26:00 [facility] [place] Temperature Oral (F) 2016-09-15 04:26:00 98.5 F [facility] [place] Respitory Rate 2016-04-14 06:22:00 [facility] [place] Temperature Oral (F) 2016-04-14 06:22:00 98.7 F [facility] [place] Systolic (mm Hg) 2016-04-14 06:22:00 Eleazar rial [place] Diastolic (mm Hg) 2016-04-14 06:22:00 Mem o[facility] [place] Heart Rate 2016-04-14 06:22:00 [facility] [place] BMI Calculated 2016-04-14 02:12:00 [facility] [place] Weight 2016-04-14 02:12:00 [facility] [place] Temperature Oral (F) 2016-04-14 02:12:00 99.2 F [facility] [place] Height 2016-04-14 02:12:00 152.4 cm [facility] [place] Respitory Rate 2016-04-14 02:12:00 [facility] [place] Systolic (mm Hg) 2016-04-14 02:12:00 Eleazar rial [place] Diastolic (mm Hg) 2016-04-14 02:12:00 Mem orial [place] Heart Rate 2016-04-14 02:12:00 [facility] [place] Temperature Oral (F) 2016-03-12 17:00:00 97.8 F [facility] [place] Heart Rate 2016-03-12 17:00:00 [facility] [place] Respitory Rate 2016-03-12 17:00:00 [facility] al [place] Systolic (mm Hg) 2016-03-12 17:00:00 Eleazar rial [place] Diastolic (mm Hg) 2016-03-12 17:00:00 Mem orial [place] Respitory Rate 2016-03-12 12:54:00 [facility] al [place] Systolic (mm Hg) 2016-03-12 12:30:00 Eleazar rial [place] Diastolic (mm Hg) 2016-03-12 12:30:00 Mem orial [place] Respitory Rate 2016-03-12 12:30:00 [facility] [place] Heart Rate 2016-03-12 12:30:00 [facility] [place] Temperature Oral (F) 2016-03-12 12:30:00 98.2 F [facility] [place] Temperature Oral (F) 2016-03-12 10:26:00 98.0 F [facility] [place] Heart Rate 2016-03-12 10:26:00 [facility] [place] Systolic (mm Hg) 2016-03-12 10:26:00 Eleazar rial [place] Diastolic (mm Hg) 2016-03-12 10:26:00 Mem orial [place] Height 2016-03-11 19:45:00 152.4 cm [facility] [place] BMI Calculated 2016-03-11 19:45:00 [facility] al [place] Weight 2016-03-11 19:45:00 [facility] [place] Respitory Rate 2016-03-06 01:44:00 [facility] al [place] Systolic (mm Hg) 2016-03-06 01:44:00 Eleazar rial [place] Diastolic (mm Hg) 2016-03-06 01:44:00 Mem orial [place] Heart Rate 2016-03-06 01:44:00 [facility] [place] Temperature Oral (F) 2016-03-06 01:44:00 98.1 F [facility] [place] BMI Calculated 2016-03-05 21:55:00 [facility] al [place] Weight 2016-03-05 21:55:00 [facility] [place] Systolic (mm Hg) 2016-03-05 21:55:00 Eleazar rial [place] Diastolic (mm Hg) 2016-03-05 21:55:00 Mem orial [place] Heart Rate 2016-03-05 21:55:00 [facility] [place] Height 2016-03-05 21:55:00 152.4 cm [facility] [place] Temperature Oral (F) 2016-03-05 21:55:00 98.3 F [facility] [place] Respitory Rate 2016-03-05 21:55:00 Mem[facility] al [place] Respitory Rate 2016-03-01 01:23:00 Mem[facility] al [place] Systolic (mm Hg) 2016-03-01 01:23:00 Eleazar rial [place] Diastolic (mm Hg) 2016-03-01 01:23:00 Mem orial [place] Temperature Oral (F) 2016-03-01 01:23:00 98.2 F [facility] [place] Heart Rate 2016-03-01 01:23:00 [facility] [place] Respitory Rate 2016-02-29 23:25:00 Memori al [place] Temperature Oral (F) 2016-02-29 22:27:00 98.3 F [facility] [place] Heart Rate 2016-02-29 22:27:00 [facility] [place] Respitory Rate 2016-02-29 22:27:00 Memori al [place] Systolic (mm Hg) 2016-02-29 22:27:00 Eleazar rial [place] Diastolic (mm Hg) 2016-02-29 22:27:00 Mem o[facility] [place] Respitory Rate 2015-09-05 14:47:00 [facility] al [place] Systolic (mm Hg) 2015-09-05 14:47:00 Eleazar rial [place] Diastolic (mm Hg) 2015-09-05 14:47:00 [facility] o[facility] [place] Heart Rate 2015-09-05 14:47:00 [facility] [place] Weight 2015-09-05 11:00:00 [facility] [place] Systolic (mm Hg) 2015-09-05 10:00:00 Eleazar rial [place] Diastolic (mm Hg) 2015-09-05 10:00:00 Mem o[facility] [place] Respitory Rate 2015-09-05 10:00:00 [facility] [place] Heart Rate 2015-09-05 10:00:00 [facility] [place] Respitory Rate 2015-09-05 06:00:00 [facility] [place] Systolic (mm Hg) 2015-09-05 06:00:00 Eleazar rial [place] Diastolic (mm Hg) 2015-09-05 06:00:00 [facility] [place] Heart Rate 2015-09-05 06:00:00 [facility] [place] Weight 2015-09-04 11:00:00 [facility] [place] Weight 2015-09-04 09:15:00 [facility] [place] BMI Calculated 2015-09-04 09:15:00 [facility] [place] Height 2015-09-04 09:15:00 160.02 cm [facility] [place] Temperature Oral (F) 2015-09-04 09:06:00 98.3 F [facility] [place] Height 2015-09-04 03:35:00 152.4 cm [facility] [place] BMI Calculated 2015-09-04 03:35:00 Mem[facility] [place] Temperature Oral (F) 2015-09-04 03:35:00 98.7 F [facility] [place] Systolic (mm Hg) 2015-07-16 13:56:00 Eleazar rial [place] Diastolic (mm Hg) 2015-07-16 13:56:00 Mem o[facility] [place] Respitory Rate 2015-07-16 13:56:00 [facility] [place] Heart Rate 2015-07-16 13:56:00 [facility] [place] Temperature Oral (F) 2015-07-16 13:56:00 98.0 F [facility] [place] Systolic (mm Hg) 2015-07-16 13:55:00 Eleazar rial [place] Diastolic (mm Hg) 2015-07-16 13:55:00 Mem o[facility] [place] Respitory Rate 2015-07-16 13:55:00 [facility] al [place] Heart Rate 2015-07-16 13:55:00 [facility] [place] Temperature Oral (F) 2015-07-16 13:55:00 97.4 F [facility] [place] Systolic (mm Hg) 2015-07-16 10:00:00 Eleazar rial [place] Diastolic (mm Hg) 2015-07-16 10:00:00 Mem o[facility] [place] Respitory Rate 2015-07-16 10:00:00 [facility] [place] Heart Rate 2015-07-16 10:00:00 [facility] [place] Temperature Oral (F) 2015-07-16 10:00:00 97.9 F [facility] [place] Height 2015-07-16 01:30:00 152.4 cm [facility] [place] Weight 2015-07-16 01:30:00 [facility] [place] BMI Calculated 2015-07-16 01:30:00 Mem[facility] [place] Height 2015-07-15 18:10:00 152.4 cm [facility] [place] BMI Calculated 2015-07-15 18:10:00 [facility] [place] Weight 2015-07-15 18:10:00 [facility] [place] Weight 2015-07-05 04:10:00 [facility] [place] Height 2015-07-05 04:10:00 152.4 cm [facility] BMI Calculated 2015-07-05 04:10:00 [facility] [place] Temperature Oral (F) 2015-07-05 04:10:00 98.3 F [facility] [place] Respitory Rate 2015-07-05 04:10:00 [facility] [place] Heart Rate 2015-07-05 04:10:00 [facility] [place] Systolic (mm Hg) 2015-07-05 04:10:00 Eleazar rial [place] Diastolic (mm Hg) 2015-07-05 04:10:00 [facility] [place] BMI Calculated 2015-07-04 18:05:00 [facility] [place] Weight 2015-07-04 18:05:00 [facility] [place] Height 2015-07-04 18:05:00 152.4 cm [facility] [place] Temperature Oral (F) 2015-07-04 18:05:00 97.9 F [facility] [place] Respitory Rate 2015-07-04 18:05:00 [facility] [place] Heart Rate 2015-07-04 18:05:00 [facility] [place] Systolic (mm Hg) 2015-07-04 18:05:00 Eleazar rial [place] Diastolic (mm Hg) 2015-07-04 18:05:00 [facility] [place] BMI Calculated 2015-06-04 04:13:00 [facility] [place] Weight 2015-06-04 04:13:00 [facility] [place] Height 2015-06-04 04:13:00 152.4 cm [facility] [place] Temperature Oral (F) 2015-06-04 04:13:00 98.8 F [facility] [place] Respitory Rate 2015-06-04 04:13:00 [facility] [place] Heart Rate 2015-06-04 04:13:00 [facility] [place] Systolic (mm Hg) 2015-06-04 04:13:00 Eleazar rial [place] Diastolic (mm Hg) 2015-06-04 04:13:00 [facility] [place] Systolic (mm Hg) 2015-05-18 22:47:00 Eleazar rial [place] Diastolic (mm Hg) 2015-05-18 22:47:00 [facility] [place] Temperature Oral (F) 2015-05-18 22:47:00 96.6 F [facility] [place] Heart Rate 2015-05-18 22:47:00 [facility] [place] Respitory Rate 2015-05-18 22:47:00 [facility] [place] Systolic (mm Hg) 2015-05-18 22:30:00 Eleazar rial [place] Diastolic (mm Hg) 2015-05-18 22:30:00 [facility] o[facility] [place] Systolic (mm Hg) 2015-05-18 21:00:00 Eleazar rial [place] Diastolic (mm Hg) 2015-05-18 21:00:00 [facility] [place] Temperature Oral (F) 2015-05-18 21:00:00 98.1 F [facility] [place] Respitory Rate 2015-05-18 21:00:00 [facility] [place] Temperature Oral (F) 2015-05-18 19:21:00 98.2 F [facility] [place] Heart Rate 2015-05-18 19:21:00 [facility] [place] Respitory Rate 2015-05-18 19:21:00 [facility] [place] Heart Rate 2015-05-18 17:10:00 [facility] [place] Respitory Rate 2015-05-09 20:00:00 [facility] [place] Systolic (mm Hg) 2015-05-09 20:00:00 Eleazar rial [place] Diastolic (mm Hg) 2015-05-09 20:00:00 [facility] [place] Temperature Oral (F) 2015-05-09 20:00:00 97.5 F [facility] [place] Temperature Oral (F) 2015-05-09 19:10:00 97.5 F [facility] [place] Systolic (mm Hg) 2015-05-09 19:10:00 Eleazar rial [place] Diastolic (mm Hg) 2015-05-09 19:10:00 [facility] [place] Respitory Rate 2015-05-09 19:10:00 [facility] [place] Systolic (mm Hg) 2015-05-09 18:41:00 Eleazar rial [place] Diastolic (mm Hg) 2015-05-09 18:41:00 [facility] [place] Weight 2015-05-09 17:37:00 [facility] [place] BMI Calculated 2015-05-09 17:37:00 [facility] [place] Height 2015-05-09 17:37:00 152.4 cm [facility] [place] Temperature Oral (F) 2015-05-09 17:37:00 98.9 F [facility] [place] Respitory Rate 2015-05-09 17:37:00 [facility] [place] Heart Rate 2015-05-09 17:37:00 [facility] [place] Systolic (mm Hg) 2015-05-03 00:04:00 Eleazar rial [place] Diastolic (mm Hg) 2015-05-03 00:04:00 [facility] [place] Heart Rate 2015-05-03 00:04:00 [facility] [place] Respitory Rate 2015-05-03 00:04:00 [facility] [place] Temperature Oral (F) 2015-05-03 00:04:00 98.5 F [facility] [place] Heart Rate 2015-05-02 21:17:00 [facility] [place] Respitory Rate 2015-05-02 21:17:00 [facility] [place] Systolic (mm Hg) 2015-05-02 21:17:00 Eleazar rial [place] Diastolic (mm Hg) 2015-05-02 21:17:00 [facility] [place] Heart Rate 2015-05-02 20:24:00 [facility] [place] Temperature Oral (F) 2015-05-02 20:24:00 98.1 F [facility] [place] Systolic (mm Hg) 2015-05-02 20:24:00 Eleazar rial [place] Diastolic (mm Hg) 2015-05-02 20:24:00 [facility] [place] Respitory Rate 2015-05-02 20:24:00 [facility] [place] Temperature Oral (F) 2015-05-02 18:35:00 98.9 F [facility] [place] Systolic (mm Hg) 2015-04-11 19:45:00 Eleazar rial [place] Diastolic (mm Hg) 2015-04-11 19:45:00 [facility] [place] Temperature Oral (F) 2015-04-11 19:45:00 98.7 F [facility] [place] Respitory Rate 2015-04-11 19:45:00 [facility] [place] Heart Rate 2015-04-11 19:45:00 [facility] [place] Weight 2015-04-11 16:35:00 [facility] [place] Temperature Oral (F) 2015-04-11 16:35:00 98.4 F [facility] [place] Systolic (mm Hg) 2015-04-11 16:35:00 Eleazar rial [place] Diastolic (mm Hg) 2015-04-11 16:35:00 [facility] [place] Respitory Rate 2015-04-11 16:35:00 [facility] [place] Heart Rate 2015-04-11 16:35:00 [facility] [place] Systolic (mm Hg) 2015-03-30 22:06:00 Eleazar rial [place] Diastolic (mm Hg) 2015-03-30 22:06:00 [facility] [place] Temperature Oral (F) 2015-03-30 22:06:00 97.9 F [facility] [place] Heart Rate 2015-03-30 22:06:00 [facility] [place] Respitory Rate 2015-03-30 22:06:00 [facility] [place] BMI Calculated 2015-03-30 19:44:00 [facility] [place] Height 2015-03-30 19:44:00 152.4 cm [facility] [place] Systolic (mm Hg) 2015-03-30 19:44:00 Eleazar rial [place] Diastolic (mm Hg) 2015-03-30 19:44:00 [facility] [place] Respitory Rate 2015-03-30 19:44:00 [facility] [place] Heart Rate 2015-03-30 19:44:00 [facility] [place] Weight 2015-03-30 19:44:00 [facility] [place] Temperature Oral (F) 2015-03-30 19:44:00 97.9 F [facility] Respitory Rate 2015-03-24 21:57:00 [facility] [place] Temperature Oral (F) 2015-03-24 21:57:00 97.9 F [facility] [place] Heart Rate 2015-03-24 21:57:00 [facility] [place] Systolic (mm Hg) 2015-03-24 21:57:00 Eleazar rial [place] Diastolic (mm Hg) 2015-03-24 21:57:00 [facility] [place] Heart Rate 2015-03-24 17:28:00 [facility] [place] Temperature Oral (F) 2015-03-24 17:28:00 98.8 F [facility] [place] Respitory Rate 2015-03-24 17:28:00 [facility] [place] Systolic (mm Hg) 2015-03-24 17:28:00 Eleazar rial [place] Diastolic (mm Hg) 2015-03-24 17:28:00 [facility] [place] Heart Rate 2015-03-24 13:08:00 [facility] [place] Temperature Oral (F) 2015-03-24 13:08:00 98.4 F [facility] [place] Respitory Rate 2015-03-24 13:08:00 [facility] [place] Systolic (mm Hg) 2015-03-24 13:08:00 Eleazar rial [place] Diastolic (mm Hg) 2015-03-24 13:08:00 [facility] [place] BMI Calculated 2015-03-22 01:41:00 [facility] [place] Weight 2015-03-22 01:41:00 [facility] Height 2015-03-22 01:41:00 152.4 cm [facility] BMI Calculated 2015-03-21 18:42:00 [facility] [place] Weight 2015-03-21 18:42:00 [facility] [place] Height 2015-03-21 18:42:00 152.4 cm [facility] [place] Systolic (mm Hg) 2015-03-11 22:39:00 Eleazar rial [place] Diastolic (mm Hg) 2015-03-11 22:39:00 [facility] [place] Respitory Rate 2015-03-11 22:39:00 [facility] [place] Heart Rate 2015-03-11 22:39:00 [facility] [place] Temperature Oral (F) 2015-03-11 22:39:00 98.1 F [facility] [place] BMI Calculated 2015-03-11 19:44:00 [facility] [place] Weight 2015-03-11 19:44:00 [facility] [place] Systolic (mm Hg) 2015-03-11 19:44:00 Eleazar rial [place] Diastolic (mm Hg) 2015-03-11 19:44:00 [facility] [place] Temperature Oral (F) 2015-03-11 19:44:00 97.9 F [facility] Heart Rate 2015-03-11 19:44:00 [facility] Respitory Rate 2015-03-11 19:44:00 [facility] [place] Height 2015-03-11 19:44:00 152.4 cm [facility] [place] Temperature Oral (F) 2015-03-05 10:15:00 97.9 F [facility] [place] Systolic (mm Hg) 2015-03-05 10:15:00 Eleazar rial [place] Diastolic (mm Hg) 2015-03-05 10:15:00 [facility] [place] Respitory Rate 2015-03-05 10:15:00 [facility] [place] Respitory Rate 2015-03-05 09:53:00 [facility] [place] Temperature Oral (F) 2015-03-05 09:53:00 97.8 F [facility] [place] Systolic (mm Hg) 2015-03-05 09:53:00 Eleazar rial [place] Diastolic (mm Hg) 2015-03-05 09:53:00 [facility] [place] Respitory Rate 2015-03-05 06:30:00 [facility] [place] Systolic (mm Hg) 2015-03-05 06:30:00 Eleazar rial [place] Diastolic (mm Hg) 2015-03-05 06:30:00 [facility] [place] Temperature Oral (F) 2015-03-05 06:20:00 97.7 F [facility] [place] Heart Rate 2015-03-05 06:20:00 [facility] Heart Rate 2015-03-05 05:46:00 [facility] Height 2015-03-05 05:46:00 152.4 cm [facility] BMI Calculated 2015-03-05 05:46:00 [facility] Weight 2015-03-05 05:46:00 [facility] [place] Systolic (mm Hg) 2015-02-25 20:55:00 [facility] [place] Diastolic (mm Hg) 2015-02-25 20:55:00 [facility] [place] Temperature Oral (F) 2015-02-25 20:55:00 97.9 F [facility] [place] Heart Rate 2015-02-25 20:55:00 [facility] [place] Respitory Rate 2015-02-25 20:55:00 [facility] [place] Temperature Oral (F) 2015-02-25 17:18:00 98 F [facility] [place] Heart Rate 2015-02-25 17:18:00 [facility] Respitory Rate 2015-02-25 17:18:00 [facility] Systolic (mm Hg) 2015-02-25 17:18:00 [facility] Diastolic (mm Hg) 2015-02-25 17:18:00 [facility] Systolic (mm Hg) 2015-02-25 12:00:00 [facility] [place] Diastolic (mm Hg) 2015-02-25 12:00:00 [facility] Respitory Rate 2015-02-25 12:00:00 [facility] Heart Rate 2015-02-25 12:00:00 [facility] [place] Temperature Oral (F) 2015-02-25 12:00:00 97.8 F [facility] Height 2015-02-24 16:11:00 152.4 cm [facility] BMI Calculated 2015-02-24 16:11:00 [facility] [place] Weight 2015-02-24 16:11:00 [facility] Heart Rate 2015-02-18 20:17:00 [facility] Temperature Oral (F) 2015-02-18 20:17:00 97.3 F [facility] [place] Systolic (mm Hg) 2015-02-18 20:17:00 [facility] [place] Diastolic (mm Hg) 2015-02-18 20:17:00 [facility] Respitory Rate 2015-02-18 20:17:00 [facility] [place] Heart Rate 2015-02-18 16:13:00 [facility] [place] Respitory Rate 2015-02-18 16:13:00 [facility] Systolic (mm Hg) 2015-02-18 16:13:00 [facility] [place] Diastolic (mm Hg) 2015-02-18 16:13:00 [facility] Temperature Oral (F) 2015-02-18 16:13:00 97.5 F [facility] Temperature Oral (F) 2015-02-18 12:19:00 97.9 F [facility] Systolic (mm Hg) 2015-02-18 12:19:00 [facility] [place] Diastolic (mm Hg) 2015-02-18 12:19:00 [facility] [place] Respitory Rate 2015-02-18 12:19:00 [facility] Heart Rate 2015-02-18 12:19:00 [facility] [place] Weight 2015-02-17 02:30:00 [facility] Height 2015-02-17 02:30:00 152.4 cm [facility] BMI Calculated 2015-02-17 02:30:00 [facility] Weight 2015-02-16 20:42:00 [facility] BMI Calculated 2015-02-16 20:42:00 [facility] Height 2015-02-16 20:42:00 152.4 cm [facility] Respitory Rate 2013-12-25 19:27:00 [facility] [place] Heart Rate 2013-12-25 19:27:00 [facility] Diastolic (mm Hg) 2013-12-25 19:27:00 [facility] Systolic (mm Hg) 2013-12-25 19:27:00 [facility] [place] Temperature Oral (F) 2013-12-25 19:27:00 98.3 F [facility] BMI Calculated 2013-12-25 16:48:00 [facility] [place] Weight 2013-12-25 16:48:00 [facility] [place] Height 2013-12-25 16:48:00 152.4 cm [facility] Respitory Rate 2013-12-25 16:48:00 [facility] [place] Heart Rate 2013-12-25 16:48:00 [facility] Diastolic (mm Hg) 2013-12-25 16:48:00 [facility] [place] Systolic (mm Hg) 2013-12-25 16:48:00 [facility] [place] Temperature Oral (F) 2013-12-25 16:48:00 98.8 F [facility] Heart Rate 2013-12-23 00:27:00 [facility] Systolic (mm Hg) 2013-12-23 00:27:00 [facility] [place] Respitory Rate 2013-12-23 00:27:00 [facility] [place] Temperature Oral (F) 2013-12-23 00:27:00 98.3 F [facility] [place] Diastolic (mm Hg) 2013-12-23 00:27:00 [facility] Diastolic (mm Hg) 2013-12-22 23:06:00 [facility] [place] Temperature Oral (F) 2013-12-22 23:06:00 98.4 F [facility] Systolic (mm Hg) 2013-12-22 23:06:00 [facility] [place] Respitory Rate 2013-12-22 23:06:00 [facility] Heart Rate 2013-12-22 23:06:00 [facility] Weight 2013-12-22 20:46:00 [facility] Temperature Oral (F) 2013-12-22 20:46:00 98.7 F [facility] [place] Systolic (mm Hg) 2013-12-22 20:46:00 [facility] [place] Diastolic (mm Hg) 2013-12-22 20:46:00 [facility] [place] Respitory Rate 2013-12-22 20:46:00 [facility] [place] Heart Rate 2013-12-22 20:46:00 [facility] [place] Diastolic (mm Hg) 2013-12-17 20:30:00 [facility] [place] Respitory Rate 2013-12-17 20:30:00 [facility] [place] Systolic (mm Hg) 2013-12-17 20:30:00 [facility] [place] Systolic (mm Hg) 2013-12-17 19:06:00 [facility] [place] Diastolic (mm Hg) 2013-12-17 19:06:00 [facility] [place] Respitory Rate 2013-12-17 19:06:00 [facility] [place] Systolic (mm Hg) 2013-12-17 18:54:00 [facility] [place] Diastolic (mm Hg) 2013-12-17 18:54:00 [facility] Temperature Oral (F) 2013-12-17 17:09:00 98.1 F [facility] Respitory Rate 2013-12-17 16:50:00 [facility] Temperature Oral (F) 2013-12-17 09:00:00 97.1 F [facility] Height 2013-12-17 02:58:00 152.4 cm [facility] Weight 2013-12-17 02:58:00 [facility] [place] BMI Calculated 2013-12-17 02:58:00 [facility] [place] Temperature Oral (F) 2013-12-17 02:55:00 98.1 F [facility] Height 2013-12-16 17:19:00 152.4 cm [facility] BMI Calculated 2013-12-16 17:19:00 [facility] [place] Weight 2013-12-16 17:19:00 [facility] Heart Rate 2013-12-16 17:19:00 [facility] Temperature Oral (F) 2013-11-08 21:00:00 98 F [facility] Diastolic (mm Hg) 2013-11-08 21:00:00 [facility] [place] Respitory Rate 2013-11-08 21:00:00 [facility] [place] Systolic (mm Hg) 2013-11-08 21:00:00 [facility] Temperature Oral (F) 2013-11-08 19:13:00 97.6 F [facility] [place] Diastolic (mm Hg) 2013-11-08 19:13:00 [facility] [place] Systolic (mm Hg) 2013-11-08 19:13:00 [facility] Respitory Rate 2013-11-08 19:13:00 [facility] [place] Systolic (mm Hg) 2013-11-08 16:18:00 [facility] [place] Respitory Rate 2013-11-08 16:18:00 [facility] Diastolic (mm Hg) 2013-11-08 16:18:00 [facility] [place] Temperature Oral (F) 2013-11-08 11:34:00 99.0 F [facility] Heart Rate 2013-11-08 11:34:00 [facility] [place] Heart Rate 2013-11-08 08:04:00 [facility] [place] BMI Calculated 2013-11-08 04:51:00 [facility] Height 2013-11-08 04:51:00 152.4 cm [facility] [place] Weight 2013-11-08 04:51:00 [facility] Heart Rate 2013-11-08 04:51:00 [facility] Procedures Procedure Date / Time Performing Clinician Source Performed Cardiac catheterization [facility] procedure Stent placement<sup>1</sup> [facility] [place] Plan of Care Planned Activity Planned Date Details Comments Source Future Scheduled Test 2020-05-[address] [facility] 00:00:00 May to October (>/= 19 yrs) [code = IMM Influenza Seasonal May to October (>/= 19 yrs)] Future Scheduled Test [address] 65 [facility] 00:00:00 and Up [code = IMM Pneumococcal Age 65 and Up] Future Scheduled Test [address] [facility] 00:00:00 neoplasm of colon (procedure) [code = 339703673] Future Scheduled Test [address] [facility] 00:00:00 (Yearly) [code = Breast Cancer Scrn (Yearly)] Encounters Start End Encounter Admission Attending Care Care Encounter Source Date/Time Date/Time Type Type Clinicians Facility Department ID 2020-01-21 2020-01-21 Outpatient E [facility] [id number] [facility] 05:31:00 05:31:00 2019-10-15 2019-10-15 Emergency E [id number] [facility] 13:12:00 13:12:00 2019-05-20 2019-05-20 [id number] 15:19:00 15:19:00 2019-02-25 2019-02-25 Emergency E [facility] [id number] [facility] 10:56:00 10:56:00 2018-08-21 2018-08-21 Emergency [facility] [id number] [place] 18:32:58 18:32:58 Health 2018-08-21 2018-08-21 Emergency [facility] [id number] [place] 17:47:59 17:47:59 Health 2018-08-21 2018-08-21 Emergency [facility] [id number] [place] 16:16:06 16:16:06 Health 2018-08-16 2018-08-16 Emergency [facility] [id number] [place] 22:04:00 22:04:00 Health 2018-08-16 2018-08-16 Emergency [facility] [id number] [place] 21:21:42 21:21:42 Health 2018-05-18 2018-05-18 Emergency [facility] [id number] [place] 14:51:52 14:51:52 Health 2018-03-08 2018-03-08 Emergency [facility] [id number] [place] 15:12:17 15:12:17 Health 2018-01-16 2018-01-16 Emergency [facility] [id number] [place] 17:53:03 17:53:03 Health 2018-01-16 2018-01-16 Emergency [facility] [id number] [place] 00:00:00 00:00:00 Health 2018-01-16 2018-01-16 Outpatient [facility] [id number] [place] 00:00:00 00:00:00 [facility] 2017-11-11 2017-11-11 Emergency E [facility] MED [id number] [facility] 16:37:00 16:37:00 2017-01-19 2017-01-19 Outpatient Patel, [facility] [id number] 12:18:00 18:37:00 Mac Bond 2017-01-16 2017-01-16 Outpatient Chayito, [facility] [id number] 18:22:00 21:34:00 Jl 33 [place] 2016-11-28 2016-11-28 Outpatient Ace, [facility] [id number] 19:17:00 23:13:00 Skinnyelsa 32 Mel[place] 2016-11-06 2016-11-06 Outpatient Nava, [facility] [id number] 17:34:00 21:03:00 Zaki 31 [place] 2016-10-10 2016-10-11 Out[facility] [id number] 11:45:00 13:54:00 Alexandreaaviva Read 30 2016-09-14 2016-09-15 Outpatient Weathers, [facility] [id number] 21:19:00 00:56:00 Nando Lozada 29 2016-04-13 2016-04-14 Outpatient Frandy, [facility] [id number] 21:11:00 01:37:00 Jose 28 Theviniyil 2016-03-11 2016-03-12 Outpatient Ogunbiyi, [facility] [id number] 14:41:00 15:25:00 Khadijat 27 Arinola 2016-03-05 2016-03-05 Outpatient Fadowole, [facility] [id number] 16:54:00 21:21:00 Rachele 26 [place] 2016-02-29 2016-02-29 Outpatient Garbino, [facility] [id number] 17:25:00 20:29:00 Good 25 2015-09-03 2015-09-05 Outpatient Mateus Dixon [facility] [id number] 21:30:00 10:26:00 B 24 2015-07-15 2015-07-16 Outpatient Anjel, [facility] [id number] 12:00:00 15:30:00 Janet 23 2015-07-04 2015-07-05 Outpatient Dick, [facility] [id number] 22:07:00 01:09:00 Habacuc 22 Breen 2015-07-04 2015-07-04 Outpatient Hemal, [facility] [id number] 11:57:00 14:54:00 Maribel Berkowitz 21 2015-06-03 2015-06-04 Outpatient Jeanie, [facility] [id number] 23:00:00 02:09:00 Luzmaria 20 Aliya 2015-05-18 2015-05-18 Outpatient Jennifer, [facility] [id number] 11:55:00 18:04:00 Indira S 19 2015-05-09 2015-05-09 Outpatient Jennifer, [facility] [id number] 12:15:00 15:10:00 Indira S 18 2015-05-02 2015-05-02 Outpatient Jennifer, [facility] [id number] 13:18:00 19:05:00 Indira S 17 2015-04-11 2015-04-11 Outpatient Yovani, [facility] [id number] 11:25:00 14:47:00 Gilmar Giordano 16 2015-03-30 2015-03-30 Outpatient Charito, [facility] [id number] 14:39:00 17:11:00 Isatu 15 Lucy 2015-03-21 2015-03-24 Outpatient Richmond, [facility] [id number] 13:24:00 17:30:00 Catarino Valladares 2015-03-11 2015-03-11 Outpatient Dick, [facility] [id number] 14:43:00 17:41:00 Habacuc 13 Breen 2015-03-05 2015-03-05 Outpatient Tata Rushing IE IE [id number] 00:43:00 05:21:00 Jasbir 12 2015-02-24 2015-02-25 Outpatient Zack IE [place] [id number] 10:34:00 20:14:00 [place] 11 2015-02-16 2015-02-18 Outpatient Thu, [facility] [id number] 15:36:00 16:00:00 Kaldiana 10 Marilynn 2013-12-25 2013-12-25 Outpatient Dorothea, [facility] [id number] 11:37:00 14:52:00 Rishabh Valdivia 2013-12-22 2013-12-22 Outpatient Nba, [facility] [id number] 15:43:00 19:29:00 Jann 08 Jl 2013-12-16 2013-12-17 Outpatient Beth, [facility] [id number] 12:18:00 17:45:00 Alvarez 07 2013-11-07 2013-11-08 Outpatient Jazmin, JOESPH IE [id number] 23:50:00 18:00:00 Dustin Results Test Description [...] PM) URINE AND STOOL 2017-01-19 Negative (01/19/17 Me morial 19:21:00 2:21 PM) [facility] URINE AND STOOL 2017-01-19 Negative (01/19/17 Me morial 19:21:00 2:21 PM) [facility] URINE AND STOOL 2017-01-19 Negative (01/19/17 Me morial 19:21:00 2:21 PM) [facility] URINE AND STOOL 2017-01-19 1 [facility] 19:21:00 [place] URINE AND STOOL 2017-01-19 1 [facility] 19:21:00 [facility] URINE AND STOOL 2017-01-19 7.0 [facility] 19:21:00 [place] URINE AND STOOL 2017-01-19 1.008 [facility] 19:21:00 [place] URINE AND STOOL 2017-01-19 Clear (01/19/17 2:21 [facility] 19:21:00 PM) [facility] CARDIAC ENZYMES 2017-01-19 3.0 [facility] 18:07:00 [place] CARDIAC ENZYMES 2017-01-19 <0.02 [facility] 18:07:00 [facility] CHEM PANEL 2017-01-19 231 [facility] 18:07:00 [place] CHEM PANEL 2017-01-19 9 [facility] 18:07:00 [place] CHEM PANEL 2017-01-19 8.4 [facility] 18:07:00 [place] CHEM PANEL 2017-01-19 1.0 [facility] 18:07:00 [place] CHEM PANEL 2017-01-19 3.6 [facility] 18:07:00 [place] CHEM PANEL 2017-01-19 7 [facility] 18:07:00 [place] CHEM PANEL 2017-01-19 32 [facility] 18:07:00 [facility] CHEM PANEL 2017-01-19 104 [facility] 18:07:00 [place] CHEM PANEL 2017-01-19 3.4 [facility] 18:07:00 [place] CHEM PANEL 2017-01-19 141 [facility] 18:07:00 [place] CHEM PANEL 2017-01-19 0.79 [facility] 18:07:00 [place] CHEM PANEL 2017-01-19 3.6 [facility] 18:07:00 [place] CHEM PANEL 2017-01-19 9.1 [facility] 18:07:00 [place] CHEM PANEL 2017-01-19 25 [facility] 18:07:00 [place] CHEM PANEL 2017-01-19 7.2 [facility] 18:07:00 [place] CHEM PANEL 2017-01-19 1.1 [facility] 18:07:00 [place] CHEM PANEL 2017-01-19 111 [facility] 18:07:00 [place] CHEM PANEL 2017-01-19 31 [facility] 18:07:00 [place] CHEM PANEL 2017-01-19 90 [facility] 18:07:00 [place] CHEM PANEL 2017-01-19 73 [facility] 18:07:00 [place] CHEM PANEL 2017-01-19 75 [facility] 18:07:00 [place] HEMATOLOGY 2017-01-19 18:07:00 Test Item Value Reference Range Interpretation Comme nts PTT (test code = PTT) 31.3 s 22.9-35.8 [facility] FvizpicIQRJOUEBOE9005-16-03 18:07:008.5[facility]annHEMATOLOGY 2017-01-19 18:07:0042.0[facility] AkwjqowZCOCWATVYE0391-54-60 18:07:004.92[facility] ArapvoaIOVYYABAYY8946-57-99 18:07:0014.4[facility] IicfiflGWWEUKOXQK9465-49-72 18:07:0014.2[facility] KcsbksxVEETBYSWZY9927-50-20 18:07:58051Pvrwwqye [facility] KKRWIYMGGI9723-55-52 18:07:0034.2[facility] EazukpmAYDEFUAHCU6634-87-36 18:07:00 Test Item Value Reference Range Interpretation Comments MCH (test code = MCH) 29.2 pg 27.0-31.0 [facility] SwrebrxNNDTZDTUGZ6282-37-41 18:07:0085.5[facility] HermannHEMATOLOGY 2017-01-19 18:07:007.7[facility] BxqhadkTELYLZCIAM5840-65-43 18:07:00 Test Item Value Reference Range Interpretation Comments PT (test code = PT) 13.7 s 12.0-14.7 [facility] XyvaczvSBCAFXMINP9232-90-55 18:07:001.03[facility]annHEMATOLOGY 2017-01-19 18:07:000.3[facility] UlnnvzrHOVXTWYBKI3325-51-31 18:07:0068.3[facility] VmlcldmKOLEKRVDJI1077-44-96 18:07:000.6[facility] BnaygouMYXVRDPMJE2364-82-04 18:07:005.3[facility] FikotrcCCMGWMKVRZ7190-12-13 18:07:004.5[facility] [place] UGNPRSPZJO6790-49-13 18:07:000.6[facility] QqgomncDVLCIGBBJC1282-27-13 18:07:001.4 [facility] UflykalWNENMQRHLQ6129-19-45 18:07:007.8[facility]annHEMATOLOGY 2017-01-19 18:07:0018.8[facility]annDRUG HIPNAP9535-40-83 00:23:00Positive *ABN*(01/16/17 7:23 PM)[facility] QRKXHP3062-17-95 00:23:00Negative *NA*(01/16/17 7:23 PM)[facility] HGVMHK1996-50-85 00:23:00Negative *NA*(01/16/17 7:23 PM)[facility] JWKPWR5456-74-28 00:23:00Negative *NA*(01/16/17 7:23 PM)[facility] KAQCDR5490-14-26 00:23:00See Note (01/16/17 7:23 PM)[facility] XIDQPS9531-01-22 00:23:00Negative *NA*(01/16/17 7:23 PM)[facility] FAQOLX6209-92-48 00:23:00Negative *NA*(01/16/17 7:23 PM)[facility] WYSYPG8258-61-45 00:23:00Negative *NA*(01/16/17 7:23 PM)[facility] ASKYX3480-69-92 00:23:00Negative *NA*(01/16/17 7:23 PM)[facility] RJXKZ5548-64-21 00:23:00Negative *NA*(01/16/17 7:23 PM)[facility] HSJQB8490-57-70 00:23:00Negative (01/16/17 7:23 PM)[facility] DFDBV7198-37-63 00:23:00Negative (01/16/17 7:23 PM)[facility] VWZFI1689-02-54 00:23:00Negative (01/16/17 7:23 PM)[facility] BZVXS5544-66-43 00:23:001.0[facility] DKSWM1229-67-76 00:23:00Negative (01/16/17 7:23 PM)[facility] KJFCA3618-01-49 00:23:00Slight Cloudy (01/16/17 7:23 PM)[facility] GLXUV0845-01-04 00:23:00 Test Item Value Reference Range Interpretation Comments UA Spec Grav (test code = UA Spec 1.007 1 Grav) [facility] YLYDZ1406-75-75 00:23:00 Test Item Value Reference Range Interpretation Comments UA pH (test code = UA pH) 6.0 1 5.0-8.0 [facility] IGJMH1531-91-81 00:23:00Negative (01/16/17 7:23 PM) [facility] WBQOP0272-28-27 00:23:00Yellow *NA*(01/16/17 7:23 PM) [facility]annCARDIAC NKEKQAX1351-17-93 23:57:00<0.02[facility] CARDIAC VQMCPSK7078-95-20 23:57:002.0[facility]annCARDIAC FSDDMTP9904-77-27 23:57:43647Inlouvbf HermannCARDIAC SEHUOIX7887-26-30 23:57:001.0[facility] [place] CHEM VUIIK0915-94-86 23:57:0073[facility] HermannCHEM LELKR3903-51-77 23:57:0029 [facility]annCHEM JKKBS3973-57-23 23:57:59082Liajbkli HermannCHEM PANEL 2017-01-16 23:57:77222Bsdxcpjx HermannCHEM TDTPJ2250-26-35 23:57:0015[facility] HermannCHEM MXYYI1004-12-33 23:57:0011.0[facility] HermannCHEM LHRQL5911-85-27 23:57:0016[facility] HermannCHEM BZWKD4063-11-23 23:57:009.4[facility] HermannCHEM UKBMK8259-20-75 23:57:000.94[facility] HermannCHEM TUMKH0284-51-84 23:57:35326 [facility]annCHEM VEASA0960-17-93 23:57:004.0[facility] HermannCHEM PANEL 2017-01-16 23:57:003.6[facility] HermannCHEM DNWXZ0752-13-13 23:57:0024[facility] HermannCHEM RPMEW8514-45-59 23:57:000.6[facility] HermannCHEM FHVJU0743-78-22 23:57:30797Tpbvfpcu HermannCHEM HEYMG7924-34-39 23:57:0029[facility] HermannCHEM DFYHV7689-48-86 23:57:000.9[facility] HermannCHEM YXUDC6755-22-89 23:57:003.9 [facility]annCHEM UCAGX5304-94-07 23:57:007.5[facility] HermannHEMATOLOGY 2017-01-16 23:57:0014.6[facility] YpkdedqOIAELQNFMK1689-96-25 23:57:0042.7[facility] HvouskpNCZVTIHUMM9126-16-96 23:57:0034.2[facility] MrtwmarKZFZFJELKV0571-19-58 23:57:0085.3[facility] SrioedoKODZGOBZSH2385-35-58 23:57:00 Test Item Value Reference Range Interpretation Comments MCH (test code = MCH) 29.2 pg 27.0-31.0 [facility] KyvctrrDXFZNBEQUV6464-98-90 23:57:0014.3[facility] HermannHEMATOLOGY 2017-01-16 23:57:06882Criknvjq ChcttitMWZTOJOOYK0906-73-57 23:57:008.0[facility] SnninmrDIYYFNDKKM3861-68-89 23:57:006.6[facility] YsokosmEXJQBKNLEZ4882-34-73 23:57:005.00[facility] DwyadgiTMCEUFZKQY6979-96-07 23:57:000.8[facility] [place] QNGBCVGVVI6162-92-09 23:57:004.0[facility] HpdrvnoBNQGQRRUOB8913-26-16 23:57:000.5 [facility] SswzjqfSEZMEHVXUG8302-68-77 23:57:000.1[facility] HermannHEMATOLOGY 2017-01-16 23:57:001.8[facility] XxartsrVOXVYCPZIV3436-79-56 23:57:000.2[facility] JvimwpbYAZGWGVSZW9939-12-67 23:57:0060.6[facility] CqwqejqGCABZMWTPT4777-92-62 23:57:008.3[facility] HblojrgGQIFQNNLBV0302-72-22 23:57:003.5[facility] EANWGFRSYJ9516-85-79 23:57:0026.8[facility] AND JUKXY9147-37-41 02:18:00Negative *NA*(11/28/16 9:18 PM)[facility] NECVM8152-35-67 02:18:00Negative (11/28/16 9:18 PM)[facility] SCANR0321-85-10 02:18:001.0[facility] NXSBM3770-29-14 02:18:00Negative (11/28/16 9:18 PM)[facility] WFKHQ8854-82-56 02:18:00Negative *NA*(11/28/16 9:18 PM)[facility] BTYXH2954-02-25 02:18:00Moderate *ABN*(11/28/16 9:18 PM)[facility] VTAGR9974-13-72 02:18:00Yellow *NA*(11/28/16 9:18 PM)[facility] SPWAO1567-04-48 02:18:00 Test Item Value Reference Range Interpretation Comments UA pH (test code = UA pH) 6.0 1 5.0-8.0 [facility] LIIKX1175-39-04 02:18:00Negative (11/28/16 9:18 PM) [facility] ESONR6966-53-56 02:18:00Negative (11/28/16 9:18 PM) [facility] XFWPU5516-26-55 02:18:00<=1.005 *NA*(11/28/16 9:18 PM)[facility] QZXHA2093-57-66 02:18:00Clear (11/28/16 9:18 PM) [facility]annCARDIAC SYQIFOV2659-21-66 01:37:00<0.02[facility] CARDIAC AAVEFGV7562-01-02 01:37:001.3[facility]annCARDIAC BBFVSAW5729-99-71 01:37:0089[facility]annCARDIAC ZCZTPLU2749-29-18 01:37:001.5[facility] CHEM DDKQP8942-56-17 01:37:003.9[facility] HermannCHEM BSMNY3496-65-82 01:37:0050 [facility]annCHEM HXZIH2482-37-12 01:37:000.9[facility] HermannCHEM PANEL 2016-11-29 01:37:0024[facility] HermannCHEM ZHKXQ2984-19-83 01:37:003.7[facility] HermannCHEM ZRYSL3500-04-38 01:37:0089[facility] HermannCHEM ROKLI6700-56-60 01:37:62791Fpzvtswt HermannCHEM JUECM1343-46-95 01:37:0010[facility] HermannCHEM TUOZY4285-36-22 01:37:001.28[facility] HermannCHEM SHKLD6779-68-03 01:37:0030 [facility] HermannCHEM TUVEH7188-78-84 01:37:83954Dkfmzqba HermannCHEM PANEL 2016-11-29 01:37:009.5[facility] HermannCHEM KFOJH4408-10-39 01:37:009.5[facility] HermannCHEM OGJBF4906-77-87 01:37:008[facility] HermannCHEM MXWFB9407-11-56 01:37:000.7[facility] HermannCHEM GCZIJ6721-92-50 01:37:80485Wzakuykv HermannCHEM CTFXY8357-93-53 01:37:003.5[facility] HermannCHEM VDXAM8625-18-87 01:37:007.6 [facility] HermannCHEM OZZJZ1548-15-15 01:37:0014[facility] HermannHEMATOLOGY 2016-11-29 01:10:0033.4[facility] VhxoclqTWDRKVDMPC3987-85-76 01:10:90187Lzlfdqqv RgknasnQANUQACHTJ7734-30-99 01:10:0014.7[facility] FkwocsyKXWDVUTIBX0974-75-04 01:10:008.1[facility] IaowievGISKUXPLER6364-36-03 01:10:005.34[facility] PDCBJHRUOQ3185-43-18 01:10:0015.5[facility] EnjxczfPHJHFZZATX8956-34-28 01:10:00 87.0[facility] TnwcvpnKQQULKAJGL0249-62-05 01:10:0046.4[facility] HermannHEMATOLOGY 2016-11-29 01:10:00 Test Item Value Reference Range Interpretation Comments MCH (test code = MCH) 29.1 pg 27.0-31.0 [facility] GzsshbtSTXHKKMXKP1720-61-88 01:10:008.0[facility]annHEMATOLOGY 2016-11-29 01:10:000.1[facility] MkbvmxlTYWLHHXBYQ5708-68-45 01:10:002.0[facility] MgwtlztGFLTYOZRZO9988-92-55 01:10:005.1[facility] FkfszwiJSZERREEEL6214-27-62 01:10:000.2[facility] VouskbkXDFKSWFNFC8918-59-46 01:10:000.8[facility] AVNSWEDVSX3597-97-36 01:10:0063.2[facility] FdxcflpOCTFEJJRWM0007-46-13 01:10:00 24.3[facility] FguqptmCRHOMTBNYL0882-41-54 01:10:002.1[facility]annHEMATOLOGY 2016-11-29 01:10:009.6[facility] LtsirxoFNPBJXXWYK8864-03-13 01:10:000.8[facility] HermannVIRAL - MGUWNWEM0258-59-68 01:10:00Negative (11/28/16 8:10 PM)[facility]annVIRAL - DHIEBDJX6520-34-74 01:10:00Negative (11/28/16 8:10 PM)[facility]annCARDIAC ZINMHXP3616-69-62 01:15:001.3[facility]annCARDIAC ENZYMES 2016-11-07 01:15:00<0.02[facility]annCARDIAC GHHORQK9158-23-36 01:15:001.9 [facility]annCARDIAC VIQNQHF5672-26-02 01:15:90342Lwvwfsww HermannCHEM PANEL 2016-11-07 01:15:0077[facility]annCHEM EADFA6413-50-16 01:15:0017[facility]annCHEM KGSZV9399-63-84 01:15:006.8[facility]annCHEM KOFPD7627-11-16 01:15:008.5[facility]annCHEM ZANNQ4472-05-04 01:15:000.8[facility]annCHEM GRVGM4538-80-28 01:15:09419Xnvbkvvv HermannCHEM JOVTC4455-93-23 01:15:0031 [facility]annCHEM MXFCR2380-78-72 01:15:003.1[facility]annCHEM PANEL 2016-11-07 01:15:000.90[facility]annCHEM VRUQT5553-79-61 01:15:15120Wcyblgme HermannCHEM QCTQV7038-98-30 01:15:0012[facility]annCHEM TLILI8516-82-06 01:15:0096[facility]annCHEM AUMHB7582-62-91 01:15:003.3[facility]annCHEM KDCDS7816-58-37 01:15:0076[facility]annCHEM DCOXH5678-68-08 01:15:0020 [facility]annCHE[facility] TSDNN2444-92-09 01:15:003.5[facility]annCHEM PANEL 2016-11-07 01:15:000.9[facility]annCHEM ZAMTO9091-95-32 01:15:0010.1[facility]annCHEM IQHMH6671-76-87 01:15:0013[facility] JdkwybgXJVUTPLMJZ1340-07-51 01:15:002.8[facility] HhuhvviWTHTBQCZHD0860-41-95 01:15:000.2[facility] IDJLOZALPK5732-93-79 01:15:000.1[facility] HvcnemrBHJVRZAXXV5702-31-38 01:15:000.7 [facility] HiktwyjOIAMUZIOGX6827-88-64 01:15:000.8[facility]annHEMATOLOGY 2016-11-07 01:15:004.5[facility] PxuifidBYMLAQEZNC5965-80-80 01:15:002.2[facility] RxtllnbTFJHORFGAN8344-46-05 01:15:0058.5[facility] HgaontyRXMVCTKSPC7106-86-14 01:15:0028.8[facility] YynnplcBSUBWYMOFB1886-19-92 01:15:009.1[facility] EXPYECLMMF7938-92-45 01:15:20828Putyfjyn LmtuvksTHIEDBNPDV2460-78-97 01:15:00 14.3[facility] DeocpxaVWYLZKHDMK9232-06-36 01:15:008.1[facility]annHEMATOLOGY 2016-11-07 01:15:007.7[facility] KjiwixwLGACPFGIOZ2292-32-23 01:15:0013.1[facility] MhgekbjVQJRDBVQQG2352-56-48 01:15:004.48[facility] NysidhwDCBQBVZIZY0054-24-94 01:15:00 Test Item Value Reference Range Interpretation Comments MCH (test code = MCH) 29.3 pg 27.0-31.0 [facility] EfocwlaCISROVVPNE6071-57-63 01:15:0039.1[facility]annHEMATOLOGY 2016-11-07 01:15:0087.3[facility] HkyjlpgBMSYYSTSCB8404-92-69 01:15:0033.6[facility]annDRUG UVIZNL2589-18-71 11:24:00Negative *NA*(10/11/16 5:24 AM)[facility]annDR[facility] TBIXLI4864-68-00 11:24:00Negative *NA*(10/11/16 5:24 AM)[facility]annDR[facility] BMJTUS6090-55-81 11:24:00Negative *NA*(10/11/16 5:24 AM)[facility]annDR[facility] RMYQMI4502-15-59 11:24:00Negative *NA*(10/11/16 5:24 AM)[facility]annDR[facility] ORYZED2535-52-61 11:24:00Positive *ABN*(10/11/16 5:24 AM)[facility]annDR[facility] PEARNF8110-95-67 11:24:00See Note (10/11/16 5:24 AM)[facility] WXIPLY4409-92-07 11:24:00Negative *NA*(10/11/16 5:24 AM)[facility]DR[facility] YMJLCW8468-87-24 11:24:00Negative *NA*(10/11/16 5:24 AM)[facility]annCARDIAC HERJMAW8875-38-93 09:58:00<0.02[facility] NwtvevvUFTYNMHQMS9060-06-93 09:58:00 0.4[facility] MkvulqtABCCVXMFCI0683-46-28 09:58:000.1[facility]annHEMATOLOGY 2016-10-11 09:58:006.3[facility] SgdbmfzHODWIDHTPW1766-15-37 09:58:001.0[facility] EqkmvnuQIHBXUQOQE6998-40-92 09:58:002.7[facility] PrqsxyzMDVXTRUBPQ2227-37-61 09:58:002.1[facility] GwksfkzTZYBUNKCYN3001-23-08 09:58:000.6[facility] UBYQLRYLOY2826-70-18 09:58:0036.3[facility] ZyylvohHZLTPTIKXR2034-58-40 09:58:00 46.0[facility] SfhvsreAHBWHYCZZI7472-46-56 09:58:0010.4[facility]annHEMATOLOGY 2016-10-11 09:58:008.7[facility] TwiosnvIPGHQJUUBX2625-32-11 09:58:63011Ducwkfet BpqtuhwQFOYBAYPNN4735-34-97 09:58:00 Test Item Value Reference Range Interpretation Comments MCH (test code = MCH) 29.3 pg 27.0-31.0 [facility] ObymxwyANOZWOYOFD9867-96-52 09:58:0087.2[facility]annHEMATOLOGY 2016-10-11 09:58:0014.4[facility] IgdqndmMSREEUZYCX0870-31-79 09:58:0033.6[facility] NotflvgNFCVUYBWUE3554-14-80 09:58:0013.1[facility] UtexaxsAVTGRIAVHX9311-41-55 09:58:004.45[facility] HpybqzuGZZUMABCLF4011-03-21 09:58:0038.8[facility] HCAOTXBUGK2819-91-99 09:58:005.8[facility] LzonxliINQIXW7232-64-51 09:58:002.84 [facility] ZbbngotOXPVYO0554-80-44 09:58:0014[facility] EjcglljTBELSF5498-19-16 09:58:0087[facility] AraczhkXAXSZD4947-92-68 09:58:0071[facility] HermannLIPIDS 2016-10-11 09:58:52975Ohuhzujz QygkluzHPSNAP4066-57-21 09:58:0055[facility]annCARDIAC OMRNMXU1268-34-04 00:00:00<0.02[facility]annCARD[facility]AC ENZYMES 2016-10-10 19:10:33<0.02[facility]annCHEM GAYPT6419-21-68 19:10:3392 [facility]annCHEM POWWV6531-02-07 19:10:338[facility]annCHEM PANEL 2016-10-10 19:10:330.78[facility]annCHEM FMZED8604-68-00 19:10:20811Ulogdjjh HermannCHEM XMYQK1536-51-14 19:10:333.2[facility]annCHEM UFHRA3033-72-41 19:10:339.3[facility]annCHEM PKJBS6028-43-37 19:10:3331[facility]annCHEM VBCYF4752-77-86 19:10:44988Jgdjhujf HermannCHEM RLYJM6809-88-06 19:10:30262 [facility]annCHE[facility] JGVHO9493-85-43 19:10:337.2[facility]annHEMATOLOGY 2016-10-10 19:10:3333.8[facility] NruxctqKBQWYZWXOC9993-19-03 19:10:3314.2[facility] PchloyyNQXFHESMXS8239-63-77 19:10:33 Test Item Value Reference Range Interpretation Comments MCH (test code = MCH) 29.4 pg 27.0-31.0 [facility] YcbzxfbEXRRFEVTCL1948-08-00 19:10:3387.0[facility]annHEMATOLOGY 2016-10-10 19:10:3313.5[facility] NbqswjzZPZSDWLTYM7391-98-55 19:10:3339.8[facility] WftprtrHLKRLWCCFS3203-22-83 19:10:52765Mzdgxazh QyxjwbrQFUIISNYEI3116-09-11 19:10:338.7[facility] MbehhdlNQCDJZFURK3714-00-60 19:10:336.6[facility] TERXOMIXOV5640-06-08 19:10:334.58[facility] AihsnaoBWBDASOHWY7701-37-77 19:10:33 1.8[facility] MhoddgdNITPOCQRIZ1617-81-91 19:10:330.6[facility]annHEMATOLOGY 2016-10-10 19:10:330.3[facility] BhbphipRQXFUWPXPK3093-30-68 19:10:330.6[facility] UzaqdutZSQTDKFHLN2165-23-69 19:10:333.9[facility] QiimlthVNFEQQIKCC7224-55-19 19:10:339.0[facility] VvhmjmoRCJJPNVWVI6938-03-01 19:10:334.1[facility] OAOANCJVMV7741-57-12 19:10:3359.5[facility] ZgrdgfnWKSXACILCI5362-15-27 19:10:33 26.8[facility]annCARDIAC POIHFVL9207-29-34 04:07:00<0.02[facility] XTKNGMBUNNES6171-13-86 04:07:0013.5[facility] TyhazyaJLTYRIQYXKXQ8593-65-46 04:07:0079[facility] AjokwxtNDMOUNDXKAVU2590-83-39 04:07:000.89[facility] NYGWADCEDHFJ8433-59-77 04:07:009[facility] OztwcshGEGSVLPLVQSL6343-46-29 04:07:00 72[facility] DawlakhFVGOBRKEWCKO0527-25-03 04:07:15479Zzowlalf HermannELECTROLYTES 2016-04-14 04:07:0025[facility] AklxldwVLSTYSQLMSQE3756-94-63 04:07:008.9[facility] GsxpkqiFHLYJHZAVBVS1259-22-33 04:07:69054Kvwjepap QcrcjdxQZONSFHEYXBP0695-96-12 04:07:003.5[facility] BlrjolaDCPCBXUJJV5164-64-46 04:07:79775Uuuuvvgm [facility] WWUWDVAGRL6502-84-52 04:07:008.5[facility] IuyyztkCMPIQDDIFP6330-77-34 04:07:00 33.5[facility] BcdtieeFAJRXMJIJC6713-93-08 04:07:00 Test Item Value Reference Range Interpretation Comments MCH (test code = MCH) 28.7 pg 27.0-31.0 [facility] SarahviDZQWGKUCFJ2586-99-07 04:07:0015.0[facility] HermannHEMATOLOGY 2016-04-14 04:07:0038.3[facility] LmdbjevURJRTFFXJI7868-76-50 04:07:0085.6[facility] MrqerfsLHOKDEHBHE4577-73-69 04:07:0012.9[facility] UgdwzzeMWAFLLIXGY4555-10-98 04:07:004.48[facility] RqypxojRVQAANKXBA8547-67-55 04:07:005.6[facility] DHGBSXCUQR3389-22-46 04:07:000.1[facility] TgruzobVBRUCKJAFU3537-55-24 04:07:002.2 [facility] OlzyxrvJOJSTUZEUR3836-94-34 04:07:000.3[facility] HermannHEMATOLOGY 2016-04-14 04:07:000.5[facility] XcuzfgvWWMGTERRSB1959-03-27 04:07:006.1[facility] QdawmwcLGAYDIOOKQ3042-32-05 04:07:001.1[facility] WqqprfgHDPFFGWTHU6644-73-06 04:07:002.5[facility] WmecrufLYUMOGMZJY0601-77-69 04:07:0038.8[facility] KAJHWLLZTM2264-47-43 04:07:009.2[facility] XqvapyuQUJJERGHXW3174-71-96 04:07:00 44.8[facility] FmsbdzrGSQPIARGRZ9167-56-89 04:07:008[facility] HermannTOXICOLOGY 2016-04-14 04:07:000.008[facility]annCARDIAC MGJOQML9581-72-81 11:47:00 <0.02[facility] GpxiyigPMBEFV3297-69-19 11:47:003.39[facility] HermannLIPIDS 2016-03-12 11:47:0018[facility] VricsasCLCUSE5499-84-58 11:47:0073[facility] QAKIXH1654-44-16 11:47:0090[facility] BvdybauIMIKUC6162-49-30 11:47:39926Iotfqbne FxtlqlbNIHGYX2372-19-39 11:47:0038[facility]annSPECIAL ZEQJFMZTU0100-99-03 11:47:005.9[facility]annCARDIAC XBKZRPZ5146-18-82 02:33:0081[facility] CARDIAC UOTLMDN6772-96-42 02:33:000.02[facility]annCARDIAC WCHECYI4304-06-08 02:33:001.6[facility]annCARDIAC HOYZHCJ0965-33-22 02:33:001.3[facility] TGWUMQSESE5205-89-08 21:03:00 Test Item Value Reference Range Interpretation Comments PROTIME (test code = PROTIME) 14.0 s 12.0-14.7 [facility] EmmrubjJSUJBMOOIL9627-97-95 21:03:001.05[facility]annHEMATOLOGY 2016-03-11 21:03:00 Test Item Value Reference Range Interpretation Comments aPTT (test code = aPTT) 38.7 s 22.9-35.8 [facility] HgqmhrwTQZTGTHWQF9271-80-47 21:03:000.49[facility]annCARDIAC ENZYMES 2016-03-11 20:14:001.6[facility]annCARDIAC WEUWRKT5887-36-51 20:14:001.3 [facility]annCARDIAC NVNFQKR0889-66-58 20:14:00<0.02[facility] CARDIAC ICMLQNV3825-25-64 20:14:0083[facility]annCARDIAC MVKKXFN6235-97-21 20:14:0050[facility]annCHEM KOKWI9567-32-14 20:14:38478Lgdmiymg HermannCHEM GQZJC8573-89-71 20:14:41035Sgphaykz HermannCHEM OHKNO9793-21-53 20:14:002.8 [facility]annCHEM NYKAH3486-88-99 20:14:001.2[facility] HermannCHEM PANEL 2016-03-11 20:14:0015[facility]annCHEM BLGEV6628-33-58 20:14:0010.4[facility] HermannCHEM YQPWB6861-48-46 20:14:0014[facility]annCHEM RVAKG7894-34-46 20:14:006.1[facility]annCHEM RJBRA2744-04-68 20:14:000.5[facility]annCHEM CJLIG1278-67-23 20:14:007.7[facility]annCHEM DLTCK7713-28-49 20:14:0026 [facility]annCHEM NAVWA7265-89-89 20:14:00816Dtwogruz HermannCHEM PANEL 2016-03-11 20:14:003.4[facility] HermannCHEM MBHCO9778-02-62 20:14:30140Hqfqifbp HermannCHEM HSQWN2992-29-36 20:14:000.61[facility]annCHEM CRVVC9448-25-58 20:14:009[facility]annCHEM NVPVJ9876-69-73 20:14:0076[facility]annCHEM LDPYL2221-95-39 20:14:0088[facility]annCHEM XJXWI1784-28-72 20:14:003.3 [facility]annCHE[facility] PWMSN6002-16-44 20:14:0015[facility]annHEMATOLOGY 2016-03-11 20:14:001.8[facility] ZmpnydvNWJDFRXTJC5529-66-40 20:14:000.5[facility] EbdpxxkUDMDDPXEYK2224-66-29 20:14:001.0[facility] NgqesscHGJAHHVFEP4748-95-17 20:14:004.1[facility] RkdlqlxWLGXNDEQWF3398-33-86 20:14:000.2[facility] JPGBOKELDK7093-40-34 20:14:000.1[facility] WbzlhtdWSUSIEOCVI0349-77-83 20:14:00 61.4[facility] NwvbehyLADYJPWAOB8338-77-99 20:14:003.5[facility]annHEMATOLOGY 2016-03-11 20:14:0026.6[facility] HqgaytzUZRQFPSGSE5578-86-90 20:14:007.5[facility] NucaupdNKZFSQIDYV6086-00-14 20:14:006.7[facility] SmbmzzsKTEWZQWRYZ0652-79-16 20:14:0012.2[facility] ZafczgjCAVCWYNPKQ6460-01-51 20:14:004.26[facility] VZXVFLPHTT3904-40-34 20:14:00 Test Item Value Reference Range Interpretation Comments MCH (test code = MCH) 28.7 pg 27.0-31.0 [facility] UscxowaNFXDKMKEWL2758-81-52 20:14:0086.0[facility] HermannHEMATOLOGY 2016-03-11 20:14:0014.9[facility] WgnpfhhRFXZILKUOV9889-89-80 20:14:0033.3[facility] WfzuzqrYERTSEXYYH7331-03-64 20:14:0036.6[facility] KxeaijoHLJDOVGZHA4442-33-85 20:14:008.7[facility] RooczsrHFAZPWXVVB9861-76-85 20:14:32082Vifbxzci HermannURINE AND RHKGI7384-50-41 20:14:00Negative (03/11/16 3:14 PM)[facility] EAEMB2478-28-36 20:14:00Negative (03/11/16 3:14 PM)[facility] ORKNB9219-53-02 20:14:00Negative (03/11/16 3:14 PM)[facility] GUEAP8199-21-02 20:14:000.2[facility] YOLDN1802-74-08 20:14:00 Clear (03/11/16 3:14 PM)[facility] ZYKIF4003-36-58 20:14:00 Negative (03/11/16 3:14 PM)[facility] ILLHR7520-08-51 20:14:00 <=1.005 *NA*(03/11/16 3:14 PM)[facility] IIVEQ8661-60-75 20:14:00 Test Item Value Reference Range Interpretation Comments UA pH (test code = UA pH) 6.5 1 5.0-8.0 [facility] ICEYG3616-07-55 20:14:00Negative *NA*(03/11/16 3:14 PM) [facility] DILXH7095-57-22 20:14:00Negative *NA*(03/11/16 3:14 PM) [facility] UTNRC5964-10-91 20:14:00Negative (03/11/16 3:14 PM) [facility] PNPLI0264-01-41 20:14:00Yellow *NA*(03/11/16 3:14 PM) [facility] SRPBE0396-46-03 00:22:00Yellow *NA*(02/29/16 7:22 PM) [facility] UOROW6510-86-85 00:22:00 Test Item Value Reference Range Interpretation Comments UA pH (test code = UA pH) 6.0 1 5.0-8.0 [facility] LTPMI3556-92-22 00:22:00Clear (02/29/16 7:22 PM)[facility] DJKNO6555-55-15 00:22:00 Test Item Value Reference Range Interpretation Comments UA Spec Grav (test code = UA Spec 1.015 1 Grav) [facility] NPLHE0566-91-14 00:22:00Trace *ABN*(02/29/16 7:22 PM) [facility] OBWAQ6292-96-86 00:22:00None Seen (02/29/16 7:22 PM) [facility] UCLAT5049-11-45 00:22:00Negative (02/29/16 7:22 PM) [facility] WLEUJ2270-98-98 00:22:001.0[facility] QDZCW6535-02-54 00:22:00Negative (02/29/16 7:22 PM)[facility] STOOL 2016-03-01 00:22:00Negative (02/29/16 7:22 PM)[facility] STOOL 2016-03-01 00:22:00Negative *NA*(02/29/16 7:22 PM)[facility] STOOL 2016-03-01 00:22:00Negative *NA*(02/29/16 7:22 PM)[facility] STOOL 2016-03-01 00:22:00Negative (02/29/16 7:22 PM)[facility]annCARDIAC ENZYMES 2016-02-29 23:14:00<0.02[facility]annCARDIAC WICYDDV7855-74-53 23:14:001.1 [facility]CARDIAC QZUSWQA5496-99-59 23:14:05157Qovcbjkk HermannCARDIAC JUVRAEH8220-27-48 23:14:007[facility]annCARDIAC XICYUFW9870-07-21 23:14:000.8 [facility]annCHEM ZIDZB1558-06-76 23:14:0080[facility]annCHEM PANEL 2016-02-29 23:14:0013[facility]annCHEM LUYHP5129-88-76 23:14:001.0[facility]annCHEM TXWAU7265-39-39 23:14:003.6[facility]annCHEM XLCFW0644-90-41 23:14:009[facility]annCHEM AETGP2756-85-56 23:14:007.1[facility]annCHEM YFCXR2317-35-93 23:14:0010.0[facility]annCHEM QVBOO7328-12-94 23:14:03314 [facility]annCHEM UZIAW2539-78-93 23:14:003.0[facility]annCHEM PANEL 2016-02-29 23:14:000.88[facility]annCHEM FMQTC5299-48-49 23:14:0030[facility]annCHEM MOUKB5967-42-14 23:14:000.6[facility]annCHEM YWRHU3161-04-27 23:14:008.7[facility]annCHEM GIZBH3272-27-18 23:14:97872Oeitfigi HermannCHEM TZACV4332-17-58 23:14:0015[facility]annCHEM MMCRM6323-93-39 23:14:0088 [facility]annCHE[facility] ACPMN3557-19-60 23:14:003.5[facility]annCHEM PANEL 2016-02-29 23:14:008[facility]annCHEM LAMFB3748-50-05 23:14:0089[facility] YvjqvrlSIDIJFLSGN8870-49-92 23:14:00 Test Item Value Reference Range Interpretation Comments PROTIME (test code = PROTIME) 13.2 s 12.0-14.7 [facility] BhexivlZFTFNMVBJZ7378-13-21 23:14:000.97[facility]annHEMATOLOGY 2016-02-29 23:14:0015.3[facility] OdibqieYTRUJYHATV4452-08-23 23:14:0032.9[facility] HlwnqepNITFGUFDMO4083-01-71 23:14:0043.8[facility] KpiuwkyHBSNVXPCLY5823-48-56 23:14:00 Test Item Value Reference Range Interpretation Comments MCH (test code = MCH) 28.1 pg 27.0-31.0 [facility] TwzownvNQNMORWKBQ1483-92-00 23:14:0085.5[facility]annHEMATOLOGY 2016-02-29 23:14:005.3[facility] UuzlnuhYWPRPBBYZK3320-68-09 23:14:0014.4[facility] YxoeynwMSFYCDHYVN5183-29-32 23:14:005.12[facility] OkqjigiUXKJICLVMX5662-67-64 23:14:56179Acwtfcbq KmoldtgMPALBVCWWL1896-38-75 23:14:008.1[facility] WBDWRNAUNR9708-97-22 23:14:0057.2[facility] VaazzblRORPIHVLJV5983-08-77 23:14:00 11.7[facility] FvxlldcIHJNJEHJQF9572-38-94 23:14:0024.1[facility]annHEMATOLOGY 2016-02-29 23:14:000.1[facility] XzbwkniUUMNZSTFRK9245-97-55 23:14:000.6[facility] RhuwkasPRGTGLZYKQ3110-66-13 23:14:001.3[facility] GxhblbjHPXLYOVGJN3350-48-70 23:14:000.3[facility] ThqwtceQFUXQXXCHC0945-79-73 23:14:003.0[facility] IIGEYLWSRR0590-29-31 23:14:005.9[facility] KkwokxvTIQWLOPDRA0975-54-43 23:14:001.1 [facility]annCARDIAC YQHEACR7953-18-44 17:04:000.7[facility]annCARDIAC XYGXVDZ7527-70-82 17:04:000.7[facility]annCARDIAC YAWTUQI9188-59-59 17:04:00 <0.02[facility]annCARDIAC MBZESSL8058-90-12 17:04:0097[facility] OEDYMSIXRSFO3249-84-87 17:04:0018.3[facility] EkhpmsuYKYFGUWIPDLI5104-06-09 17:04:0078[facility] JcegbuzMAPQTXVPHKRO6527-39-34 17:04:32373Wfellmqf [place] IZHAZEQYFZOA0985-83-60 17:04:0010[facility] PhookddQTEYADWYRRYP8186-21-04 17:04:00 0.90[facility] IphrynpLGSHOEXZAMVG0506-32-45 17:04:0020[facility] JTZOHLNGJFXT9651-76-47 17:04:009.4[facility] CmmkiuaZFTCTYJFIMJC8888-21-75 17:04:004.3[facility] JfjuhqoEFJIZCYQZFAC2600-02-87 17:04:47330Uyvxsloc [facility] TAYHLADCWSOC8030-33-21 17:04:62144Dtfouqzn XudagvtSWFBSUDVKS0909-67-64 17:04:00 9.6[facility] MkpvpfvJSGSYTCHGB5713-94-14 17:04:0041.4[facility]annHEMATOLOGY 2015-09-04 17:04:0013.1[facility] DjyambqIGPHSHSKHE3204-76-46 17:04:004.74[facility] RlfemayGDAECXJZBF3387-71-66 17:04:0087.3[facility] VrzjyzeXRHXGMNXAS9722-83-79 17:04:0031.5[facility] TxudlcdCLJPCNVXSO9474-20-00 17:04:00 Test Item Value Reference Range Interpretation Comments MCH (test code = MCH) 27.5 pg 27.0-31.0 [facility] JlinaexNXODJYXJFP4399-81-63 17:04:008.7[facility] HermannHEMATOLOGY 2015-09-04 17:04:39752Gtrqthtn PzhowxvELXLEKAMOL3895-88-61 17:04:0014.4[facility] VadbadrNUATUOEIPI0897-97-75 17:04:000.1[facility] WozukhqXVRJWQDPXL8125-06-51 17:04:000.5[facility] KsdgscuXPKJYNTKPV4785-02-31 17:04:00Normal (09/04/15 11:04 AM) [facility] DrukixpWVUNEAWIBQ4620-75-30 17:04:00Normal (09/04/15 11:04 AM)[facility] EiauzggZMNKBVAGAR2020-23-56 17:04:0093.3[facility] VwdljfxPYKQDBWLUX7514-83-77 17:04:000.2[facility] GoyzyflQWWUOUYDOO6685-94-63 17:04:005.4[facility] PYCFNIQBCI4064-00-12 17:04:001.1[facility] ZsepjvlSGTRKTHQKK4930-07-68 17:04:009.0 [facility] CiktpgsIYWORM4867-30-48 17:04:0014[facility] SqltofqACCOMW0190-52-79 17:04:83449Cuykxrrq ArvxnqaFZHQVA2752-22-37 17:04:0054[facility] HermannLIPIDS 2015-09-04 17:04:0071[facility] LcrcgzmNWVOWX0583-06-99 17:04:56313Ryfczkti IenmwpuGSKVHI4463-01-09 17:04:003.67[facility]annCARDIAC UVUXJTH5284-12-55 10:50:000.6[facility]annCARDIAC KKDAZWE9350-03-79 10:50:000.6[facility] CARDIAC BQOKEXI6013-07-75 10:50:00<0.02[facility]annCARDIAC ENZYMES 2015-09-04 10:50:74730Qncqllzi HermannCARDIAC GNGAQDO0294-03-91 04:33:63150 [facility]annCARDIAC HIZTUZV9265-84-84 04:33:00<0.02[facility] CARDIAC PTIPBFM0979-37-87 04:33:000.8[facility]annCARDIAC XGPVNWD8027-03-49 04:33:000.7[facility] HermannCHEM ABHIO9241-48-92 04:33:0087[facility] HermannCHEM SMKKR6604-51-73 04:33:008[facility] HermannCHEM HIGNR7749-58-81 04:33:000.82 [facility]annCHEM HUNRI9431-23-22 04:33:59732Obiupnix HermannCHEM PANEL 2015-09-04 04:33:03985Kgyhsebj HermannCHEM JGBDF9465-70-00 04:33:003.9[facility] HermannCHEM SMWAC2639-25-85 04:33:89973Dibbdmmw HermannCHEM RBACV1844-94-16 04:33:0013.9[facility] HermannCHEM NMITK8826-01-38 04:33:009.2[facility] HermannCHEM DZKUI4470-31-33 04:33:0025[facility] DggagppTYKWOPCYQC3536-49-85 04:33:007.4 [facility] BhenzhgDMJXFVCFEA3999-51-07 04:33:0012.4[facility] HermannHEMATOLOGY 2015-09-04 04:33:004.57[facility] RcmeaclSJHLNIHDWD1578-27-13 04:33:0039.4[facility] MsbblsbMGKWAFKUOB4607-27-02 04:33:0086.1[facility] FmgucqmMJROELVOAY8463-24-52 04:33:0014.7[facility] UdlxaruIGTYMQPDWZ5152-38-56 04:33:0031.6[facility] SBVGUMFWET4585-45-25 04:33:00 Test Item Value Reference Range Interpretation Comments MCH (test code = MCH) 27.2 pg 27.0-31.0 [facility] IjfjxmmWXUPJULKYP4723-49-09 04:33:008.3[facility] HermannHEMATOLOGY 2015-09-04 04:33:68103Ircepbhi LnjtagoMKWVVUFXND9702-69-46 04:33:005.5[facility] DrqqhkfEDDXSXXSFJ4644-97-87 04:33:006.5[facility] OiztuupBMBXESHSBI3180-33-87 04:33:0031.7[facility] NfdcpwiDIVWOYKRUS0679-40-41 04:33:0055.0[facility] KSZQDQGIIZ0295-94-05 04:33:000.5[facility] IvcblgjFMNJKYSQMO1443-71-95 04:33:002.3 [facility] TmcnqisKWLHQXGDDP1284-35-31 04:33:004.0[facility] HermannHEMATOLOGY 2015-09-04 04:33:001.3[facility] MsbqmuhJHKJPTETSU8527-47-43 04:33:000.1[facility] AwmfqsmMWTVIUIMTW0050-62-37 04:33:000.4[facility]annCARDIAC QIOTBOU3099-73-87 10:25:00<0.02[facility]annCARDIAC NWDMQHQ5153-09-72 10:25:0075[facility]annCARDIAC KCAGPJM0821-84-86 10:25:000.9[facility]annCARDIAC ENZYMES 2015-07-16 10:25:001.2[facility] HermannCHEM RZEXE8327-29-49 10:25:06364Suxjcznl HermannCHEM UJNDA7535-59-53 10:25:000.6[facility] HermannCHEM QEGFW1082-71-57 10:25:003.1[facility] HermannCHEM KJZSI1117-08-21 10:25:009.0[facility] HermannCHEM GZPWS0497-76-38 10:25:006.3[facility] HermannCHEM UOEWI5403-84-35 10:25:0014 [facility]annCHEM OUNXV1855-95-84 10:25:0089[facility] HermannCHEM PANEL 2015-07-16 10:25:0019[facility]annCHEM EJGTQ4877-40-65 10:25:0025[facility]annCHEM XBJWC6405-54-83 10:25:004.2[facility] HermannCHEM SAJJG2346-94-29 10:25:53902Paxlyoxo HermannCHEM VUVVP8711-30-00 10:25:0014[facility] HermannCHEM EUTJO4026-75-12 10:25:000.70[facility] HermannCHEM MVMHX2723-79-22 10:25:01085 [facility]annCHEM RMNUK0186-72-46 10:25:0078[facility] HermannCHEM PANEL 2015-07-16 10:25:0020[facility]annCHEM YRACN9185-65-85 10:25:0010.2[facility] HermannCHEM KAIJN8650-10-18 10:25:001.0[facility] HermannCHEM QPBMU0773-15-85 10:25:003.2[facility] AwzygeeVPSSONXWKI9147-20-09 10:25:008.6[facility] YRYQFWEPNS3536-86-92 10:25:71854Yldvecja PrihogcZEIDXLSJBY7255-42-97 10:25:00 14.3[facility] FoiwtefWLNFUICVVW5782-16-58 10:25:004.53[facility] HermannHEMATOLOGY 2015-07-16 10:25:005.5[facility] MookwnyZPVQGZSWMZ7402-61-30 10:25:00 Test Item Value Reference Range Interpretation Comments MCH (test code = MCH) 27.9 pg 27.0-31.0 [facility] MvwempdBAPCYZSAQH4545-13-47 10:25:0031.5[facility] HermannHEMATOLOGY 2015-07-16 10:25:0088.6[facility] SuxwfheSKVSEPIHSE3660-21-20 10:25:0040.2[facility] GehqffbJBDMZMOPVO5335-21-35 10:25:0012.6[facility] ShbfhijXPHOAXTMQD1476-55-09 10:25:000.2[facility] YhppvlxEPLVZMEXIY0871-36-49 10:25:002.0[facility] WQVKWQIPEN7944-74-27 10:25:000.9[facility] AcpqtokHLZYVXLFXV1511-89-01 10:25:000.6 [facility] MsfjgbdADCFJUVVLC3558-37-19 10:25:002.6[facility] HermannHEMATOLOGY 2015-07-16 10:25:0011.0[facility] HebsweuPZIOOVQAXC3318-66-87 10:25:004.0[facility] IacskvhZKDTTAOIUP9410-48-77 10:25:0036.1[facility] NewruecNOFGKOFUNE7416-86-50 10:25:0048.0[facility] XhyjhzbCHAIHIKAUV8391-26-46 10:25:000.1[facility] CARDIAC YBGWCIS0820-93-97 04:22:00<0.02[facility] HermannCARDIAC ENZYMES 2015-07-16 04:22:0088[facility] HermannCARDIAC TRJFMMR7230-69-89 04:22:001.1 [facility]annCARDIAC CGNATQK0556-86-84 04:22:001.0[facility] HermannCARDIAC UTJSOWK0861-09-14 21:33:00<0.02[facility]annCARDIAC PPACOMQ1093-50-43 21:33:001.2[facility]annCARDIAC SMNVIWI3337-96-95 21:33:50579Esgdzxep Maciej CARDIAC MDBNKCI6249-84-37 21:33:001.2[facility] HermannCHEM PYGVQ8098-43-66 21:33:0090[facility] HermannCHEM JDSSX0693-36-61 21:33:0091[facility] HermannCHEM ATCFX4969-88-73 21:33:0019[facility]annCHEM FGZNT6953-09-70 21:33:0017 [facility]annCHEM JLPEY8057-60-25 21:33:0012[facility] HermannCHEM PANEL 2015-07-15 21:33:000.8[facility] HermannCHEM DEVRL2645-40-02 21:33:0011.1[facility] HermannCHEM EKCYZ4429-68-49 21:33:003.5[facility]annCHEM XPMZG6640-63-61 21:33:0027[facility]annCHEM ZAINJ1826-53-71 21:33:006.8[facility] HermannCHEM FDFUT9022-34-73 21:33:008.7[facility] HermannCHEM AFDHI1492-47-43 21:33:003.3 [facility]annCHEM MHYAA4868-41-64 21:33:001.1[facility] HermannCHEM PANEL 2015-07-15 21:33:000.80[facility] HermannCHEM YPIWV6361-08-42 21:33:57936Rjrxzwes HermannCHEM QWYMJ3016-95-08 21:33:34179Qyeyuild HermannCHEM DCVUH3643-61-90 21:33:004.1[facility] HermannCHEM TTDPZ0751-07-25 21:33:0010[facility] HermannCHEM UUTPX3975-48-59 21:33:0072[facility] ErylqxxCJCQAFMRFM8001-17-03 21:33:003.3 [facility] LkuyuhtYBWVAIPOGF5373-29-00 21:33:000.2[facility] HermannHEMATOLOGY 2015-07-15 21:33:000.6[facility] IofygwgQUHDIGRNKO2876-78-03 21:33:002.3[facility] PysdnlnPFZBXITMAU6723-64-06 21:33:0051.8[facility] GmpchuyTWJNLBNMRM3289-73-94 21:33:000.6[facility] LepxdetQWBCLGECWF5782-55-46 21:33:003.1[facility] TKHKTUKQAV4629-76-85 21:33:009.4[facility] PhgwktrZVSTUERVHV0835-07-52 21:33:00 35.1[facility] BhaatmnHLPERSOWJN7784-51-66 21:33:000.0[facility] HermannHEMATOLOGY 2015-07-15 21:33:009.1[facility] RrbynkdXLUYMNHSQZ5107-04-19 21:33:0087.6[facility] FpglbxrLRMHNHJUSO5273-92-29 21:33:0012.9[facility] YmurgyjSUZIICIENA3885-93-41 21:33:0039.8[facility] JvghcizLSLNCGXZVL1875-59-81 21:33:0032.3[facility] BENFENAPZF5842-59-51 21:33:0014.8[facility] MtzttipEBDPJLMNFH9936-18-70 21:33:00 Test Item Value Reference Range Interpretation Comments MCH (test code = MCH) 28.3 pg 27.0-31.0 [facility] XhdkjtsZSINQDKOIJ5094-09-19 21:33:48043Uvsvyawh HermannHEMATOLOGY 2015-07-15 21:33:004.54[facility] JkfmcnnCKQAXHPYHC1800-64-48 21:33:006.4[facility] CdlppplIFEWESBKRP5024-48-92 19:18:00Negative (05/18/15 2:18 PM)[facility] CARDIAC ADSDVWK4724-72-71 18:26:00<0.02[facility] HermannCHEM FQVTN1337-11-86 18:26:000.1[facility] HermannCHEM ODDIT7479-82-35 18:26:003.9[facility] HermannCHEM KGXCU7674-82-90 18:26:65834Ieikqerq HermannCHEM EXYTY1106-78-00 18:26:000.5 [facility] HermannCHEM WHHEE0332-78-15 18:26:0022[facility] HermannCHEM PANEL 2015-05-18 18:26:0018[facility] HermannCHEM DTUIX9054-69-06 18:26:007.9[facility] HermannCHEM JHKPI8018-95-57 18:26:004.0[facility] HermannCHEM NRCRQ5068-61-72 18:26:000.4[facility] HermannCHEM JVTFZ0181-10-57 18:26:001.0[facility] HermannCHEM LWVGB0541-05-20 18:26:01552Bvozlxoh HermannCHEM YEMTJ6140-39-52 18:26:0078 [facility]annCHEM HQGRW5210-91-51 18:26:31714Qeyqsans HermannCHEM PANEL 2015-05-18 18:26:003.9[facility] HermannCHEM FFMPW5502-87-15 18:26:000.9[facility] HermannCHEM GXATT8766-92-89 18:26:0087[facility] HermannCHEM SCKCT4206-81-55 18:26:007[facility] HermannCHEM QAAEW0058-34-58 18:26:80925Zawlpchi HermannCHEM CNVOJ0904-97-99 18:26:0028[facility] HermannCHEM SRWPD4613-20-65 18:26:0010.2 [facility] HermannCHEM HORTD8765-86-23 18:26:0010.9[facility] HermannHEMATOLOGY 2015-05-18 18:26:0014.2[facility] HizvezmTSREIUZSHG6567-99-26 18:26:004.96[facility] VdsbisjPAVHWPMXIU5489-73-17 18:26:00 Test Item Value Reference Range Interpretation Comments MCH (test code = MCH) 28.7 pg 27.0-31.0 [facility] JezqnpbPCUHZPJXPR6990-68-41 18:26:0032.9[facility] HermannHEMATOLOGY 2015-05-18 18:26:0043.3[facility] FktxydmOAVBHYNBFR8520-35-19 18:26:0087.2[facility] PjtjtfaMLBATNIPSU1430-24-33 18:26:006.8[facility] NkbzlnvUALHLDKNQH0237-82-93 18:26:80836Zjczfwko HlrxvldTJBMBYIOXB4017-88-10 18:26:008.2[facility] GIBYGOJNHV9025-97-96 18:26:0014.5[facility] SkiejmiMENSMJORCW4012-24-41 18:26:00 55.6[facility] WgfqjogORZWAADZZZ5767-34-53 18:26:0032.7[facility] HermannHEMATOLOGY 2015-05-18 18:26:008.5[facility] UjywnuhCRRUTUWBSY6741-30-59 18:26:003.8[facility] KmkidyuRFKHHXNIKI9411-18-37 18:26:000.6[facility] MujguukNOGYMAJJGQ8749-62-10 18:26:002.2[facility] GrivgkqDAEPEZMXSP0224-72-52 18:26:002.6[facility] PQLEGVMFBK2761-29-34 18:26:000.2[facility] TrbigxpCNIVTISSMI2321-96-82 18:26:000.6 [facility] FqcnjdyUODFGUZBEK3183-58-57 18:26:00Positive *NA*(05/18/15 1:26 PM) [facility] KahpdelLLVJYKRQNW0186-73-37 18:26:37291927Jyeyodcg HermannIMMUNOLOGY 2015-05-18 18:26:005.5[facility] HermannCARDIAC WVGGXXO8885-10-10 18:51:00<0.02 [facility] HermannCHEM LGLPB7536-87-92 18:51:0090[facility] HermannCHEM PANEL 2015-05-09 18:51:0028[facility] HermannCHEM WOBIY0858-51-48 18:51:009.6[facility] HermannCHEM EDBHE0890-36-53 18:51:80736Vnqfiiwq HermannCHEM CAXSN4419-98-80 18:51:000.8[facility] HermannCHEM XZVJO3708-81-58 18:51:76425Gbsavtdx HermannCHEM SOYWK9533-82-09 18:51:003.7[facility]annCHEM YJLUO0495-70-30 18:51:53609 [facility]annCHEM MCEUC1266-08-96 18:51:007[facility]annCHEM PANEL 2015-05-09 18:51:009.7[facility] AekiadlOTUFUWCNGI8181-04-15 18:51:0014.4[facility] EmxbdeePJVEVMANKM4630-28-50 18:51:0032.5[facility] SdpqhxtJPYUISOUDD3519-86-47 18:51:00 Test Item Value Reference Range Interpretation Comments MCH (test code = MCH) 28.7 pg 27.0-31.0 [facility] AmhzpyrHEJJFWOXDU1959-23-65 18:51:07760Uockokxm HermannHEMATOLOGY 2015-05-09 18:51:007.6[facility] YewiwxuZXXAXDHTLP4597-43-37 18:51:0088.2[facility] MrwaovaLTWHDAGBNG3378-43-95 18:51:0041.9[facility] EvbrvblXVXHQSPDEF6429-04-27 18:51:004.75[facility] TswhrmmGIPCKDVGBG7998-69-17 18:51:0013.6[facility] EXZSXENBLF2115-76-58 18:51:005.6[facility] OlkouybUIQGZCYGFV9296-74-58 18:51:002.1 [facility] YsrlykzSWBCHLYWYU1886-04-04 18:51:000.1[facility] HermannHEMATOLOGY 2015-05-09 18:51:000.2[facility] BojabtcZFCYCBYPHY1597-29-69 18:51:000.4[facility] TinjqyoNAYWHFUBYK7718-74-44 18:51:0050.8[facility] WwrolmdXWUOVSGLWM1849-37-05 18:51:002.8[facility] MvqwwlxQZYSUALZMT0262-98-12 18:51:002.9[facility] UJRJNJDBWY9142-03-71 18:51:001.1[facility] TmqfdzcPJGHLPLDNZ2076-51-03 18:51:007.7 [facility] UznxasdURBORTRCAG6185-16-08 18:51:0037.6[facility] HermannCARDIAC ENZYMES 2015-05-02 22:03:00<0.02[facility] HermannCHEM BKMCV4271-43-77 22:03:003.2 [facility] HermannCHEM ADASP9193-71-13 22:03:002.1[facility] HermannELECTROLYTES 2015-05-02 22:03:0012.4[facility] KgqdcljNDQDVGCPAQIN2567-54-02 22:03:0068[facility] YrgynciMBZQJWJYSYZY9989-01-53 22:03:92791Xmnawdbh TuaynysQZFWPTXYETXV6012-67-66 22:03:99698Htynhwrb ShfmuzaRUKEADNWZXIA9460-22-28 22:03:0028[facility] PKFEGAQQXDUU3009-34-83 22:03:008.8[facility] GyufogmHEBSYIHCXRWN4869-58-25 22:03:003.4[facility] SrbehgpPZWHBLUJXPME5006-88-58 22:03:000.9[facility] AIVKXZBBOVZG4587-15-97 22:03:0092[facility] HemibjqEVGBSFCVBQGZ6811-61-10 22:03:00 6[facility] ErfuzymIRKEBEYMWY4362-60-36 22:03:008.0[facility] HermannHEMATOLOGY 2015-05-02 22:03:0014.1[facility] KbvyvplHUYGMQINFL2471-62-33 22:03:28585Jdjofiis XvbkavjDGBOTUVDTE1834-28-57 22:03:0032.6[facility] KbfpegzVLEUCMPSJX2829-62-03 22:03:008.0[facility] KderuteUXGNUWAKCH2743-00-55 22:03:0040.2[facility] PKYHEKDTEJ7574-70-62 22:03:0087.4[facility] GfnwpocOUKBOMJKWH9219-78-15 22:03:00 13.1[facility] TzrlpgxTYWJBRYYZH9621-31-74 22:03:004.60[facility] HermannHEMATOLOGY 2015-05-02 22:03:00 Test Item Value Reference Range Interpretation Comments MCH (test code = MCH) 28.5 pg 27.0-31.0 [facility] GipcvgoXIYLSOJVWC5062-32-74 22:03:0026.3[facility] HermannHEMATOLOGY 2015-05-02 22:03:0060.9[facility] VpxaoyoVXAFMTAKNE0330-67-41 22:03:001.0[facility] SxygnavXGFSPVTSEO8270-77-50 22:03:003.0[facility] TtvmjpxDLJXSTHUGW0637-00-95 22:03:008.8[facility] RbowjcyUYBOHEMURM8310-47-12 22:03:000.7[facility] CCGWPHZCGM4925-23-67 22:03:000.2[facility] OnxzievLKHOEKKIDS8165-09-29 22:03:002.1 [facility] ZsedqesWNJBYBHSGM8595-48-08 22:03:004.9[facility] HermannHEMATOLOGY 2015-05-02 22:03:000.1[facility]annURINE AND GOJBZ4770-24-03 21:38:00Negative (05/02/15 4:38 PM)[facility] THZGD9591-20-26 21:38:00Moderate *ABN*(05/02/15 4:38 PM)[facility] FOFDB2783-12-09 21:38:00None Seen (05/02/15 4:38 PM)[facility] SGEQX8182-87-17 21:38:00None Seen (05/02/15 4:38 PM)[facility] CEVFB8595-09-36 21:38:00Negative (05/02/15 4:38 PM)[facility] IZFAP2009-91-57 21:38:00Negative *NA*(05/02/15 4:38 PM)[facility] XXRFV1997-39-67 21:38:000.2 [facility] XVCTH0524-28-24 21:38:00Negative (05/02/15 4:38 PM) [facility] DGBGA0782-07-42 21:38:00Negative *NA*(05/02/15 4:38 PM) [facility] QHVAE3373-14-99 21:38:00Yellow *NA*(05/02/15 4:38 PM) [facility] GRKZA4538-92-30 21:38:00 Test Item Value Reference Range Interpretation Comments UA pH (test code = UA pH) 6.0 1 5.0-8.0 [facility] ZLFIY3813-91-43 21:38:00Slight Cloudy (05/02/15 4:38 PM) [facility] DWXTZ0422-71-35 21:38:00Negative (05/02/15 4:38 PM) [facility] GPAJY2973-60-31 21:38:00 Test Item Value Reference Range Interpretation Comments UA Spec Grav (test code = UA Spec 1.006 1 Grav) [facility]annCHEM CQFYA4637-33-89 09:28:09033Wgternfy HermannCHEM PANEL 2015-03-24 09:28:29804Dplmqrgh HermannCHEM IRDFK0891-15-76 09:28:000.7[facility] HermannCHEM WPHOX1977-54-30 09:28:004[facility] HermannCHEM GJYQZ2457-71-40 09:28:003.2[facility] HermannCHEM HSIHZ6629-26-10 09:28:82400Vfipqbea HermannCHEM BWCHW1703-03-58 09:28:0091[facility] HermannCHEM QMXOR5235-38-27 09:28:003.5 [facility]annCHEM VZVSZ3291-30-97 09:28:006.6[facility] HermannCHEM PANEL 2015-03-24 09:28:32998Iikpvvkm HermannCHEM KIHDZ6014-24-18 09:28:009.1[facility] HermannCHEM FABND3318-59-91 09:28:0027[facility] HermannCHEM PDRUR8510-66-83 09:28:0011.2[facility] HermannCHEM HJYXT9804-65-95 09:28:0021[facility] HermannCHEM GBBEJ5158-65-23 09:28:0034[facility] HermannCHEM EQFRW6056-05-25 09:28:000.6 [facility] HermannCHEM CKRWF6049-47-07 09:28:0095[facility] HermannCHEM PANEL 2015-03-24 09:28:006[facility] HermannCHEM GRPGM5958-28-49 09:28:001.1[facility] HermannCHEM HIDIV1764-65-83 09:28:003.1[facility] McpqqvqHLAUUMXTBG2647-39-12 09:28:0011.3[facility] MnfwoxoTKQEGNKGNE9006-73-33 09:28:0027.1[facility] UJPVWAYHPQ8958-36-85 09:28:005.9[facility] AqvhmwwAPOVAEJJIL7772-89-30 09:28:003.3 [facility] PmpuefdPLVULALWOX2128-10-55 09:28:000.7[facility] HermannHEMATOLOGY 2015-03-24 09:28:0055.0[facility] SbuhdfuATJULKHCMQ9708-34-22 09:28:000.7[facility] PrtfrmyTMOZWXEMDZ0889-17-71 09:28:001.6[facility] HvmpshqDIBRQVGHVI0299-11-97 09:28:000.4[facility] LxhdefwWYUCHPMFVO6324-08-01 09:28:004.21[facility] WMZEWRONPZ6171-64-37 09:28:005.9[facility] DqgcldhOZXTKYFVHS8190-43-71 09:28:82070 [facility] EajtkzcNHVBWNVJBY4002-00-33 09:28:0032.4[facility] HermannHEMATOLOGY 2015-03-24 09:28:0014.2[facility] KvmbfkmBNJRDFKGMV7083-35-27 09:28:008.6[facility] CintuboZLPFNYQICU6017-30-95 09:28:0037.2[facility] WxrcgscXUKUDPCZCQ9154-53-81 09:28:0088.3[facility] HswimdyPFLUWJDOXF7425-55-07 09:28:0012.1[facility] XXVWTGAWHQ3336-11-21 09:28:00 Test Item Value Reference Range Interpretation Comments MCH (test code = MCH) 28.6 pg 27.0-31.0 [facility] RMTBJ4562-89-52 18:14:00Negative (03/23/15 1:14 PM) [facility] HermannCARDIAC JGADQKK0852-16-49 10:51:000.8[facility] HermannCARDIAC GPUIEHU5678-27-76 10:51:0070[facility] HermannCARDIAC FNYIVIE5076-54-00 10:51:00 1.1[facility] HermannCHEM SAXQP0118-54-43 10:51:10486Bztkgbjz HermannCHEM PANEL 2015-03-23 10:51:0027[facility] HermannCHEM BINMH3504-75-41 10:51:009.2[facility] HermannCHEM OSFPP0756-78-39 10:51:49331Ihqvzguy HermannCHEM VMCTO0275-33-68 10:51:64122Cwrhunmu HermannCHEM JTTGJ9477-16-70 10:51:003.5[facility] HermannCHEM CQQUP2940-22-25 10:51:000.7[facility] HermannCHEM MIXKZ0848-27-53 10:51:008 [facility] HermannCHEM EVZGV7739-66-69 10:51:22069Hxddzmgc HermannCHEM PANEL 2015-03-23 10:51:0010.5[facility] DerllkvZMHBODSIQX7925-39-82 10:51:001.3[facility] BmdtekbGFALFRDWFN0761-96-67 10:51:003.4[facility] AybprvkTVOYKBIUHA0848-91-69 10:51:000.6[facility] RudsvbzUMLNSYLYTU8436-79-53 10:51:004.0[facility] JWIVEZOEXO8331-53-94 10:51:000.2[facility] YoagchvHUPWMDZPHZ5943-51-29 10:51:000.6 [facility] BrltrhrZFLHPMOQJU6691-24-78 10:51:0011.0[facility] HermannHEMATOLOGY 2015-03-23 10:51:0023.6[facility] XscefugUEIUARETSR6243-78-08 10:51:0060.8[facility] MenvlhdLZZUXHFPXD4103-30-91 10:51:008.3[facility] GcbfjzeGTMZLEFIJZ2949-08-79 10:51:99127Myyfczfh EitfuyeCMUFDTGEIM1949-44-64 10:51:0014.6[facility] PPYUQOPQVD5802-43-37 10:51:0088.0[facility] WapstayHCLUFLERDA8109-16-33 10:51:00 Test Item Value Reference Range Interpretation Comments MCH (test code = MCH) 28.7 pg 27.0-31.0 [facility] TxuctyrTVVTPZJTUA3100-55-62 10:51:0034.7[facility] HermannHEMATOLOGY 2015-03-23 10:51:0032.6[facility] KputmgzOIEXMUWMBG9099-25-57 10:51:0011.3[facility] KiytutrUDTOXEVVHA6045-31-48 10:51:003.94[facility] BibqymuWDLSKOKFON1660-24-98 10:51:005.6[facility] HermannCARDIAC FOYZBFR4514-15-19 10:19:001.6[facility] CARDIAC MMDSKMR4914-48-18 10:19:001.0[facility] HermannCARDIAC FKICKVZ5225-95-29 10:19:0064[facility] HermannCHEM NNHTB4590-76-58 10:19:56071Lhfvdvgn HermannCHEM HRTQV3556-69-18 10:19:008.7[facility] HermannCHEM RMEMN4202-34-83 10:19:99852 [facility] HermannCHEM ALJNE1501-93-45 10:19:003.9[facility] HermannCHEM PANEL 2015-03-22 10:19:63897Gklfnyep HermannCHEM WHAUX4804-99-78 10:19:0027[facility] HermannCHEM PCGDG4867-00-43 10:19:0094[facility] HermannCHEM LCCJK4476-91-84 10:19:008[facility] HermannCHEM PLYLK5535-55-23 10:19:000.6[facility] HermannCHEM HWWLF3918-45-88 10:19:008.9[facility] GmsqsxoGYEFPEFYFX0050-01-50 10:19:000.2 [facility] HotswutMYGGOCKMUQ1290-15-79 10:19:000.5[facility] HermannHEMATOLOGY 2015-03-22 10:19:000.9[facility] QzysagbVMQQKQMKSM8629-03-57 10:19:0011.2[facility] BkgevxvZVGAANHZHZ1600-49-77 10:19:002.1[facility] TbkgfzxPVADEZWLVQ9493-13-52 10:19:003.7[facility] YfckmmjLIOCPVYZBB8361-17-52 10:19:001.6[facility] UFAZHSKZGI7354-32-71 10:19:0048.6[facility] KkwlforTARVGSWWPU3759-81-44 10:19:00 35.6[facility] OluiwicPAMOUJNWST8635-71-09 10:19:008.9[facility] HermannHEMATOLOGY 2015-03-22 10:19:004.4[facility] BebszefMDYPXJFWSR2391-22-43 10:19:00 Test Item Value Reference Range Interpretation Comments MCH (test code = MCH) 29.9 pg 27.0-31.0 [facility] FjrjnshZWVNEYDNVG9081-26-36 10:19:0086.5[facility] HermannHEMATOLOGY 2015-03-22 10:19:0034.6[facility] UibuvicOASJGKMIMB6068-67-39 10:19:0011.7[facility] KknbebtGOJOCZYGSS2267-98-15 10:19:003.92[facility] KskjxtjLPLETBEDAX5731-66-93 10:19:0033.9[facility] QkhxeyoMTHJEEFLUX1693-25-83 10:19:0014.6[facility] TUUHJUQXRS2626-60-14 10:19:58491Pvoqmkko HermannCARDIAC QENLBZK7740-09-22 03:22:001.6[facility] HermannCARDIAC BAACWIE6103-11-99 03:22:0077[facility] CARDIAC XUNKRJD3268-05-14 03:22:001.2[facility] HermannCHEM NJCDY7924-85-36 02:44:001.4[facility] HermannCARDIAC NUFJZMY2557-95-70 21:13:00<0.02[facility] HermannCHEM HYIRB9390-15-75 21:13:003.3[facility] HermannCHEM OSRYP0956-41-14 21:13:001.1[facility] HermannCHEM QBOSJ8024-08-31 21:13:0016[facility] HermannCHEM OFXIJ6324-50-97 21:13:09684Hrywwukf HermannCHEM ISJAM6901-45-58 21:13:0025 [facility] HermannCHEM VOALV2606-01-12 21:13:000.5[facility] HermannCHEM PANEL 2015-03-21 21:13:0032[facility] HermannCHEM ZAHXR5859-06-24 21:13:003.7[facility] HermannCHEM NYWYS4121-00-88 21:13:007.0[facility] HbybkgsVIWGMGEURB3478-86-37 21:13:000.0[facility] AmzmaoyRQIOKCNNVW3142-67-89 21:13:001.04[facility] XAVPPFDNTK6184-22-13 21:13:00 Test Item Value Reference Range Interpretation Comments PT (test code = PT) 13.6 s 12.0-14.7 [facility] AepltejOMXKPOCHUP9303-15-19 21:13:00 Test Item Value Reference Range Interpretation Comments PTT (test code = PTT) 35.2 s 22.9-35.8 [facility]annCARDIAC ZIUFNWI0648-61-08 21:10:006[facility]annCARDIAC ETZPELO8865-70-32 21:02:00<0.02[facility] HermannCARDIAC DUIZTNO0976-45-57 21:02:0031[facility]annCARDIAC WYDRMBY0182-58-75 21:02:000.8[facility] CARDIAC PAJOFBT7869-40-64 21:02:0070[facility]annCARDIAC WXQEFYG9255-15-84 21:02:001.1[facility] HermannCHEM NTRGQ7099-03-17 21:02:90271Eofwguln HermannCHEM UGBOU8047-83-40 21:02:0099[facility] HermannCHEM WAWIP0815-12-96 21:02:000.6 [facility] HermannCHEM WDNIS6993-83-65 21:02:0011[facility] HermannCHEM PANEL 2015-03-11 21:02:009.4[facility] HermannCHEM EZACG5148-85-88 21:02:003.1[facility] HermannCHEM VFAMW4665-51-48 21:02:001.1[facility] HermannCHEM YFKFK8837-97-33 21:02:0073[facility] HermannCHEM FTPCR5423-16-88 21:02:008[facility] HermannCHEM TUXOG6744-48-94 21:02:000.7[facility] HermannCHEM TKNZL1904-81-61 21:02:69695 [facility] HermannCHEM CLLJK5946-41-96 21:02:003.4[facility] HermannCHEM PANEL 2015-03-11 21:02:0028[facility] HermannCHEM BFHVV3591-96-00 21:02:06175Zinizuie HermannCHEM MOHZJ7358-51-26 21:02:008.9[facility] HermannCHEM LQKFX3184-05-41 21:02:006.5[facility] HermannCHEM VNFGB8680-92-43 21:02:003.4[facility] HermannCHEM MYPPP9806-09-75 21:02:0030[facility] HermannCHEM ODFAL2719-78-58 21:02:0021 [facility] FdjxmlaZEMCXEWSRU5812-77-76 21:02:0015.1[facility] HermannHEMATOLOGY 2015-03-11 21:02:0033.1[facility] FzpkiciDZQLIGCEKH9592-87-23 21:02:03483Cpioygbf YdyrafoROCTNLCCYG4485-16-43 21:02:008.1[facility] QmheekcGOKXQXGXWA1169-47-93 21:02:0034.6[facility] IxokehyUIABCKVCPA9251-90-64 21:02:0011.5[facility] DGJIZTRCBE0300-66-60 21:02:00 Test Item Value Reference Range Interpretation Comments MCH (test code = MCH) 28.8 pg 27.0-31.0 [facility] WtqcobkPBEBGUMDFQ6283-37-50 21:02:0086.9[facility] HermannHEMATOLOGY 2015-03-11 21:02:003.98[facility] RheklymYZXVYYLKXU5116-51-23 21:02:006.5[facility] TqdssvcVATFQRSTTD6895-21-62 21:02:00 Test Item Value Reference Range Interpretation Comments PTT (test code = PTT) 32.8 s 22.9-35.8 [facility] GrowaqiSTDSZPCJZF2068-18-19 21:02:00 Test Item Value Reference Range Interpretation Comments PT (test code = PT) 13.3 s 12.0-14.7 [facility] VkfrvcuLWBPRWUNZH6139-46-78 21:02:001.01[facility] HermannHEMATOLOGY 2015-03-11 21:02:000.0[facility] GvknctlXNUTQHKYUV2496-07-71 21:02:003.7[facility] KokqaxlEIFOXNBPEG1976-18-78 21:02:000.2[facility] ZljchcqEMUXAPBTZY2610-77-15 21:02:000.6[facility] IuczpdxNSWDTCNFFI3789-21-41 21:02:001.9[facility] EKJZDYSITC9068-95-67 21:02:0056.9[facility] UfoltvzATBFIITKSL1283-66-36 21:02:00 2.7[facility] UdbcobiLQALDFLODY3049-80-55 21:02:000.4[facility] HermannHEMATOLOGY 2015-03-11 21:02:009.9[facility] XffftcgIMKBRJXZYH9262-26-24 21:02:0030.1[facility] HermannCARDIAC YUYCQFJ6406-97-75 09:33:00<0.02[facility] HermannCARDIAC ENZYMES 2015-03-05 06:16:00<0.02[facility] HermannCHEM WCAOV1861-80-59 06:16:001.1 [facility] HermannCHEM VAMYS4661-79-35 06:16:003.5[facility] HermannCHEM PANEL 2015-03-05 06:16:000.5[facility] HermannCHEM VNQLQ0469-97-23 06:16:000.1[facility] HermannCHEM GLKTI1532-67-06 06:16:0025[facility] HermannCHEM BVKOJ4902-12-50 06:16:0021[facility] HermannCHEM ETDNW5392-29-25 06:16:003.7[facility] HermannCHEM GAUTI3098-90-40 06:16:96283Frlzlhzy HermannCHEM QXBBN7122-64-16 06:16:000.6 [facility]annCHEM ENTYY5828-63-22 06:16:007.2[facility] HermannCHEM PANEL 2015-03-05 06:16:44983Gaeijafm FlwlaapNSAVUSBPMZOY4381-90-45 06:16:0012.6 [facility] GvkxednRQFHCZDYXRUL6672-02-76 06:16:0078[facility] HermannELECTROLYTES 2015-03-05 06:16:009.6[facility] WlhljxbMKXQVOSEAJVJ9045-01-81 06:16:0029[facility] PasgqajZNQMEZZWMUFJ4036-29-35 06:16:003.6[facility] EiavidgEJXYVKMUOHUI4167-26-82 06:16:22599Preczrmg PnnmvsgLBCZRASYQAPH4923-63-07 06:16:14592Idtkkmqa [place] TLWFICDCYOLS8611-31-10 06:16:000.8[facility] JkpgkvfECRAVDGFXHFG2009-46-31 06:16:009[facility] UqmzvfvGGAXRHGGOLFQ7896-37-45 06:16:0096[facility] ILHJBLEMGA2683-16-77 06:16:002.6[facility] OjhvzucPGJUNGOTLJ4551-45-95 06:16:000.9 [facility] FkyxwobFZLWPRYALJ2657-17-14 06:16:000.7[facility] HermannHEMATOLOGY 2015-03-05 06:16:001.7[facility] FtcejaxPAAELYHRGE2580-05-58 06:16:006.7[facility] DctthnoCQMLFFKKDQ3708-89-10 06:16:0025.0[facility] FikmnikAZPXMRFUCC4306-73-66 06:16:0064.3[facility] WrovatiPSBTPMYVBO6786-03-95 06:16:008.3[facility] RWWOBMMTLD4112-84-19 06:16:000.2[facility] MldlqnvYNBYVDVWRH4961-64-78 06:16:000.1 [facility] SfglyngHENHMVRUIK5782-01-92 06:16:0087.7[facility] HermannHEMATOLOGY 2015-03-05 06:16:0039.7[facility] MamyxzgZBHGWSRNIE2053-77-06 06:16:008.0[facility] IvmngwmWJEBZVPFZS8654-94-54 06:16:94042Goovdves SvnesbhLBKHKXYUPM9591-92-46 06:16:0014.6[facility] DlxazufXYULMZTOTQ8717-14-97 06:16:0032.4[facility] DEGLEOOHPW8041-68-59 06:16:00 Test Item Value Reference Range Interpretation Comments MCH (test code = MCH) 28.4 pg 27.0-31.0 [facility] NovnxlxJYJKYWLMWO5163-95-25 06:16:0010.5[facility] HermannHEMATOLOGY 2015-03-05 06:16:004.53[facility] DqedyjfUINSMFCKMT7004-31-07 06:16:0012.9[facility] HermannCHEM RJLHN7905-43-91 09:16:002.0[facility] HermannCHEM VJMVU8106-54-24 09:16:003.6[facility] HermannCHEM WGBAW3638-98-44 09:16:01275Hclomkll HermannCHEM TDOVM9210-11-99 09:16:0017[facility] HermannCHEM STCWV3349-37-42 09:16:003.3 [facility] HermannCHEM MXFVL7733-81-42 09:16:001.1[facility] HermannCHEM PANEL 2015-02-25 09:16:006.3[facility] HermannCHEM JCVON5114-53-20 09:16:0021[facility] HermannCHEM WPQBM5205-16-73 09:16:003.0[facility] HermannCHEM ZZHEP2759-05-58 09:16:000.5[facility] HermannCHEM IVRWT6919-76-58 09:16:83547Feglfzkb HermannCHEM AVTBO8152-99-11 09:16:0011[facility] HermannCHEM UZDDY9595-27-47 09:16:009.1 [facility] HermannCHEM YAENS0525-65-81 09:16:0099[facility] HermannCHEM PANEL 2015-02-25 09:16:008[facility] HermannCHEM MBDKA4824-37-17 09:16:49815Xrnewtwg HermannCHEM YDERC8962-89-32 09:16:000.7[facility] HermannCHEM YEGBP0438-64-93 09:16:008.9[facility] HermannCHEM XQXUR1958-06-20 09:16:62597Viankzar HermannCHEM PTXUZ9785-55-85 09:16:0028[facility] HermannCHEM KYZYU7650-12-80 09:16:003.9 [facility] HigbyjaXYZTTIYHAM5068-17-09 09:16:05698Xqcudeyu HermannHEMATOLOGY 2015-02-25 09:16:008.8[facility] VczupnbTEQULVLDBL1788-86-10 09:16:0014.9[facility] ZucihckVIVFGAHQGC5993-89-82 09:16:005.9[facility] FejcfyhNBHUVUDCTS8517-39-42 09:16:0088.4[facility] NkcrsnbPJYEPNBDBU3985-11-14 09:16:0037.2[facility] OIQDKZSWYJ2468-45-07 09:16:00 Test Item Value Reference Range Interpretation Comments MCH (test code = MCH) 28.6 pg 27.0-31.0 [facility] ZkmrzxzMVIEORNWUN1994-93-44 09:16:0032.4[facility] HermannHEMATOLOGY 2015-02-25 09:16:004.21[facility] XfeuhapCKQJVERZZD9596-59-16 09:16:0012.0[facility] TlqnyfaHKMOQMXJZF1689-96-12 09:16:0031.9[facility] HlpnsflOIUGWYSHXP1085-79-41 09:16:000.8[facility] UojqbjaFOCQBSVGOX1160-65-23 09:16:003.1[facility] EYEJFWCGPO9141-39-26 09:16:0011.6[facility] KujcqtrCGAKAFCPNG0922-86-08 09:16:00 2.9[facility] PontrfrURVQPCWCST6247-99-27 09:16:0052.8[facility]annHEMATOLOGY 2015-02-25 09:16:000.7[facility] MxypiqzBNWMIUBPUD0751-39-76 09:16:001.9[facility] QapvtnhDOJOTIDDPW7909-85-94 09:16:000.2[facility]annCARDIAC QGWRGKW1006-41-67 04:30:0074[facility] YPOUNGS1734-75-68 04:30:001.2[facility] CARDIAC XYJYGUS4640-03-60 04:30:00<0.02[facility]annCARD[facility]AC ENZYMES 2015-02-25 04:30:000.9[facility]annC[facility]AC WZESDUG5290-12-96 23:29:00<0.02 [facility] TIMDVQG9360-73-41 23:29:000.7[facility]annC[facility]AC JQQZWGR8679-61-92 23:29:0068[facility]annCARDIAC ASURPKT4221-31-68 23:29:00 1.0[facility]annC[facility]AC UDZYDOI2080-35-16 17:33:000.9[facility]annC[facility]AC SZWSFJD8781-83-67 17:33:00<0.02[facility]annCARD[facility]AC CDQJUFB0138-61-75 17:33:000.7[facility]annCARDIAC BREXUUP4304-55-20 17:33:0076[facility] CHEM ILLCD7054-77-20 17:33:0090[facility]annCHEM AARIJ1109-95-71 17:33:003.1 [facility]annCHEM EPAQC8182-01-65 17:33:42293Oxyvryfw HermannCHEM PANEL 2015-02-24 17:33:000.3[facility]annCHEM GINHM5987-43-02 17:33:001.1[facility]annCHEM CMHQS6621-06-35 17:33:007.3[facility]annCHEM RYFMP8074-17-50 17:33:0012[facility]annCHEM CWEHX2324-87-91 17:33:000.8[facility]annCHEM AQVAS4919-74-61 17:33:48691Lsdgbnef HermannCHEM KIUMM2402-39-42 17:33:0088 [facility]annCHE[facility] PEQNH0367-76-35 17:33:003.3[facility]annCHEM PANEL 2015-02-24 17:33:83090Cmfvcgwp [facility]annCHEM BZZMQ8239-65-93 17:33:0010[facility]annCHEM KTJPH3598-26-66 17:33:0015[facility]annCHEM HMPLL1015-26-34 17:33:0022[facility]annCHEM JARBS4838-63-56 17:33:008.9[facility]annCHEM BTSDA1194-30-32 17:33:0030[facility]annCHEM FBJXF1938-36-15 17:33:006.6 [facility]annCHE[facility] GOKWD9332-73-67 17:33:003.5[facility]annHEMATOLOGY 2015-02-24 17:33:0055.9[facility] CusyacbAHMTMCZQRB9971-83-10 17:33:0028.7[facility] FakiodeKIFYOUEMUZ4661-55-31 17:33:003.7[facility] GnmznoaOOUPIHNOCR2607-93-22 17:33:000.7[facility] KmjytxtMEISNAMCEY3100-19-41 17:33:001.9[facility] JQPVOCZSMU6965-37-49 17:33:002.2[facility] DhfdsmeLCFYZQSUMI3320-14-74 17:33:00 12.5[facility] LfftuxrFPTXQSPSDL1152-82-74 17:33:000.0[facility]annHEMATOLOGY 2015-02-24 17:33:000.1[facility] HckdmguFLDBBJAPFL7066-89-70 17:33:000.8[facility] ZwywglhUYVIFZPKLJ4041-10-14 17:33:008.8[facility] LjjaqgnNUTJLGRQGS9541-12-15 17:33:00 Test Item Value Reference Range Interpretation Comments MCH (test code = MCH) 28.1 pg 27.0-31.0 [facility] PpsrvwkGLDEFFCIJP6966-31-81 17:33:0014.8[facility] HermannHEMATOLOGY 2015-02-24 17:33:0032.2[facility] ZkdtvwtTFXUNBUOOH7184-11-50 17:33:37042Iqlppvwo NqevwmpNDVVABHTON0321-95-81 17:33:0011.4[facility] OdmtvtuTVVOSIVMXO5132-45-36 17:33:004.04[facility] PkrmkzdTKOUBNAOOP5041-16-21 17:33:006.5[facility] DQUWSFDTIX1005-27-29 17:33:0035.3[facility] CyqdfbhAMRYBDPCHC0249-33-79 17:33:00 87.2[facility]annCARDIAC KZOOOUA9275-99-66 09:54:006[facility]annCARDIAC SFHKEFH6774-96-30 09:54:00<0.02[facility]annCARDIAC EBUHDLV4149-66-45 09:54:001.0[facility]annCARDIAC UBRXWJK8925-16-62 09:54:0077[facility] CHEM MEZGP4200-36-73 09:54:001.8[facility] HermannCHEM ENWQZ5179-20-41 09:54:73593 [facility]annCHEM FTJYH6470-15-95 09:54:73097Ptguyxct HermannCHEM PANEL 2015-02-17 09:54:003.8[facility] HermannCHEM QJAYG5626-37-86 09:54:58895[place] HermannCHEM OHNPO7135-31-79 09:54:008.6[facility] HermannCHEM UWRKB1827-92-92 09:54:0011.8[facility] HermannCHEM BVEMY4381-34-46 09:54:0025[facility]annCHEM BWVAO7953-27-07 09:54:000.6[facility]annCHEM NMGQK3027-60-26 09:54:006 [facility]annCHEM BTJEQ9192-05-64 09:54:0072[facility]annHEMATOLOGY 2015-02-17 09:54:0011.5[facility] OmixhmaBWPYHZ9031-64-48 09:54:0051[facility] EmqflvyPWCRJL7225-76-26 09:54:0017[facility] ZltngulYCQSGY7425-28-68 09:54:0096 [facility] ArweqsqVJPTBX4946-66-67 09:54:41672Orioowvb ExlynseQXTIIW4795-30-83 09:54:0084[facility] GjckbfmVYQKHT3779-89-10 09:54:003.22[facility] HermannSPECIAL BNCVQUHLY9615-18-41 09:54:005.8[facility]annCARDIAC UADYLRI4963-87-01 04:20:00<0.02[facility]annCARDIAC TKDRAML9330-69-05 04:20:0092[facility]annCARDIAC CPMBHOJ3126-90-12 04:20:001.2[facility]annCARDIAC ENZYMES 2015-02-16 22:59:001.2[facility]annCARDIAC HLMCNIW8149-78-63 22:59:001.3 [facility]annCARDIAC TAFEXNB4993-49-72 22:59:0093[facility]annCARDIAC PAEYDQI1264-32-70 22:59:00<0.02[facility]annCARDIAC RNEUMVL9250-06-67 22:59:004[facility]annCHEM LNPYW4899-57-55 22:59:63064Sluyhuaz HermannCHEM YCKGP6422-30-29 22:59:001.0[facility] HermannCHEM FAVTJ6075-99-98 22:59:003.6 [facility]annCHEM TFSNE3868-95-69 22:59:000.4[facility] HermannCHEM PANEL 2015-02-16 22:59:000.1[facility] HermannCHEM WTANB7934-09-09 22:59:000.5[facility] HermannCHEM WOWOJ7492-31-43 22:59:007.3[facility] HermannCHEM XNXEP4642-67-14 22:59:34162Aqzoinhp HermannCHEM GSTXD8521-83-28 22:59:0015[facility] HermannCHEM LYPCL5861-59-87 22:59:0021[facility] HermannCHEM XCECQ3329-81-52 22:59:003.7 [facility]annCHEM IJNPJ3536-39-84 22:59:003.1[facility] HermannCHEM PANEL 2015-02-16 22:59:001.9[facility] HermannCHEM PPWJA8273-02-12 22:59:0090[facility] HermannCHEM XIQWB2081-01-26 22:59:009.0[facility] HermannCHEM VUEMW4675-74-00 22:59:0028[facility] HermannCHEM UPGMP6202-11-11 22:59:06758Jrqrlxpk HermannCHEM DSJPQ4944-66-36 22:59:000.8[facility] HermannCHEM HSFUY0529-06-36 22:59:0011 [facility]annCHEM VLXPP5090-88-37 22:59:003.5[facility] HermannCHEM PANEL 2015-02-16 22:59:33329Mbrydnhz HermannCHEM OHVKF9848-78-50 22:59:0076[facility] HermannCHEM XXYFU5171-73-16 22:59:007.5[facility] RatgfvpHADYLZBHBW7910-29-04 22:59:003.3[facility] HsgkrzxJDFBJMPXBS6194-75-56 22:59:009.1[facility] CZDPBSDTXX1306-39-54 22:59:0028.9[facility] ThzzrteNCSRRVJQSP8851-57-26 22:59:00 58.3[facility] HpcxlmsZYNGZDUJJJ4940-72-22 22:59:003.8[facility] HermannHEMATOLOGY 2015-02-16 22:59:000.4[facility] XbwevxhQSXXJROZLU7219-05-88 22:59:000.6[facility] InbwjrpAAZAXGCASX3698-36-88 22:59:001.9[facility] JsldwbuXSSZXJUOCX2060-71-61 22:59:000.2[facility] PpscuouCPSPMMDHJR8812-54-53 22:59:000.0[facility] FFTEESTYOV3821-55-02 22:59:00 Test Item Value Reference Range Interpretation Comments PTT (test code = PTT) 36.0 s 22.9-35.8 [facility] BqubnvhRCUMMCRQWT2818-44-73 22:59:00 Test Item Value Reference Range Interpretation Comments PT (test code = PT) 12.9 s 12.0-14.7 [facility] JyumfniINVXZOEGFA7115-15-71 22:59:000.97[facility] HermannHEMATOLOGY 2015-02-16 22:59:08738Ediqylst TisnjhlSAPHVZWJWZ1761-56-34 22:59:0014.7[facility] AxvwhkqKFBYGFNCVA2291-37-99 22:59:008.7[facility] WdnhkuhIWACFPSLFA9973-44-19 22:59:0032.6[facility] WuzjxlpIJNJNQHOHI9158-85-37 22:59:0039.5[facility] FPSVUMPCCM2987-71-82 22:59:0087.3[facility] IhbpdhjOBUNOGEIKJ3566-13-47 22:59:00 Test Item Value Reference Range Interpretation Comments MCH (test code = MCH) 28.4 pg 27.0-31.0 [facility] NehoxhpCMGBUWJEEV8269-93-57 22:59:004.52[facility]annHEMATOLOGY 2015-02-16 22:59:0012.9[facility] BqeciliGWTATFNGKT0870-92-14 22:59:006.5[facility] KeotalcFZSUHUKBU3877-31-14 22:59:0046[facility]annCARDIAC TPVLWZM5195-29-94 21:17:0015[facility]annC[facility]AC QLQBKAF2085-11-42 21:17:00<0.02[facility]annCARD[facility]AC ZLTDHIK9964-77-17 21:17:0080[facility]annC[facility]AC ENZYMES 2013-12-22 21:17:00<0.5[facility]annC[facility]AC ULLXKHN0300-40-16 21:17:00 <0.6[facility] HermannCHEM DZNQS4712-49-11 21:17:49900Twomcwwp HermannCHEM RTMHZ8922-58-92 21:17:003.6[facility] HermannCHEM NMEYQ0395-96-86 21:17:0017 [facility]annCHE[facility] YYEDX3422-69-83 21:17:001.1[facility] HermannCHEM PANEL 2013-12-22 21:17:81871Ylwjyrtg HermannCHEM TWIKO0447-53-24 21:17:0034[facility]annCHEM MQTJB4096-78-34 21:17:003.9[facility]annCHEM SKBTA3706-75-50 21:17:0089[facility]annCHEM ELPXB5633-17-91 21:17:0022[facility]annCHEM KPVKU8588-68-98 21:17:000.6[facility] HermannCHEM SURVO5013-66-42 21:17:005.5 [facility]annCHEM LAOBF4149-57-78 21:17:000.6[facility]annCHEM PANEL 2013-12-22 21:17:0010[facility]annCHEM PSMHT8484-16-88 21:17:003.5[facility]annCHEM LZXEB3011-88-74 21:17:12980Jizoswmg HermannCHEM LCEQG4724-66-86 21:17:78920Qjroxihl HermannCHEM BIVAT1845-66-91 21:17:0029[facility]annCHEM AIWIF2480-89-88 21:17:007.5[facility]annCHEM YMVIP4464-77-89 21:17:009.2 [facility]annDRUG XJPHTE5851-94-58 21:17:00Negative *NA*(12/22/13 4:17 PM) [facility] DEZAEL6750-05-96 21:17:00Negative *NA*(12/22/13 4:17 PM) [facility] SQIJKQ9359-64-55 21:17:00See Note 4*NA*(12/22/13 4:17 PM) [facility] XILQTF9885-50-91 21:17:00Negative *NA*(12/22/13 4:17 PM) [facility] PSIDWO6531-11-11 21:17:00Negative *NA*(12/22/13 4:17 PM) [facility] LTQFHF9537-99-85 21:17:00Negative *NA*(12/22/13 4:17 PM) [facility] GOZIAF4093-13-06 21:17:00Negative *NA*(12/22/13 4:17 PM) [facility] OTCZJQ1524-15-43 21:17:00Negative *NA*(12/22/13 4:17 PM) [facility] PcjyokkWHMSYVKSBU7812-49-63 21:17:00 Test Item Value Reference Range Interpretation Comments PTT (test code = PTT) 35.2 s 22.9-35.8 [facility] GmpzktsZLFOJRSEFA4125-70-25 21:17:00 Test Item Value Reference Range Interpretation Comments PT (test code = PT) 12.2 s 12.0-14.7 [facility] MkiuqxnGJXKVOZEVF3336-47-77 21:17:000.91[facility] HermannHEMATOLOGY 2013-12-22 21:17:008.4[facility] AathrhaEPDNLGTDTD8335-47-11 21:17:00 Test Item Value Reference Range Interpretation Comments MCH (test code = MCH) 29.2 pg 27.0-31.0 [facility] NfvvhfbBVPPHYSSRV8922-18-69 21:17:0033.4[facility] HermannHEMATOLOGY 2013-12-22 21:17:0014.5[facility] RbcbopoRQGLQZLQOF6377-17-33 21:17:34741Mnlghysl BvrkkziNAIABMAAQX8333-45-31 21:17:0041.6[facility] XklfvvcIATOONXLTW6406-08-48 21:17:0087.5[facility] OqzrnogGPQTFWLUDH7728-58-60 21:17:004.76[facility] SHIWIMCWIX6157-15-35 21:17:0013.9[facility] NhddlqzXCQATHBMFO4063-25-30 21:17:00 8.5[facility] MbfnxmdCEKSZSOPIL5949-48-49 21:17:000.2[facility] HermannHEMATOLOGY 2013-12-22 21:17:000.0[facility] QbypethSSPCAKHCIE3565-77-36 21:17:0066.1[facility] AmtshylZRGXYNCKRB2959-32-10 21:17:006.1[facility] XnskhcoCXNOJWMZVR2069-78-54 21:17:0025.0[facility] MpocsehRAPIYYGXJD2127-43-69 21:17:002.4[facility] LCDNSFVHDF9472-83-51 21:17:000.4[facility] EjxlrsdEEKBFSNAVM0483-50-11 21:17:002.1 [facility] LrngooiHGZRIYQHAY7742-77-19 21:17:000.5[facility] HermannHEMATOLOGY 2013-12-22 21:17:005.6[facility]annURINE AND FRIJM8874-61-18 21:17:00Trace *ABN*(12/22/13 4:17 PM)[facility] AQOOP5310-07-57 21:17:00Negative *NA*(12/22/13 4:17 PM)[facility] GOCHG9597-28-58 21:17:000.2 [facility] UMMQM0162-51-06 21:17:00Small *ABN*(12/22/13 4:17 PM) [facility] GOHIU7237-33-63 21:17:00Negative *NA*(12/22/13 4:17 PM) [facility] GTMYN7697-99-85 21:17:00Negative (12/22/13 4:17 PM) [facility] PISBK0789-64-95 21:17:00Clear (12/22/13 4:17 PM) [facility] HVRIG1866-89-52 21:17:00Yellow *NA*(12/22/13 4:17 PM) [facility] DXXPS4492-51-35 21:17:00 Test Item Value Reference Range Interpretation Comments UA pH (test code = UA pH) 6.0 1 5.0-8.0 [facility] TJITY5226-36-68 21:17:00 Test Item Value Reference Range Interpretation Comments UA Spec Grav (test code = UA Spec 1.015 1 Grav) [facility] WKWSF4259-18-22 21:17:00Negative (12/22/13 4:17 PM) [facility] JLHIJ3166-38-35 21:17:00Negative (12/22/13 4:17 PM) [facility]annCHEM CFPPW9086-97-21 15:55:312.7[facility] HermannCHEM PANEL 2013-12-17 15:55:312.2[facility] VffyxioNTVOPIPMDKOS1953-52-49 15:55:3110.5 [facility] ClydndnREIIXPXRCICO8130-53-36 15:55:3191[facility] HermannELECTROLYTES 2013-12-17 15:55:3110[facility] QnfcufaMWHFWWPZZVLW5630-15-10 15:55:310.8[facility] IzbxsskSNEGQMBCAISP0840-07-66 15:55:69698Rffczyly GwcnzvnICIQOUXQEGRB8120-75-33 15:55:3187[facility] PdiyebdAFCWUREVPKOD3455-40-67 15:55:3130[facility] UOITLZHVIIVI4127-46-17 15:55:314.5[facility] QzumobdVQFAYWIVUNPN1317-13-37 15:55:54528Mrflbsls VilmijsPODOPOCCSNUS6058-99-52 15:55:318.6[facility] SQAOTXCTQH5896-41-85 15:55:310.97[facility] RedvvtdTHAGRVIUED3918-06-16 15:55:31 Test Item Value Reference Range Interpretation Comments PTT (test code = PTT) 32.4 s 22.9-35.8 [facility] VkwgmnnSSHNLQFASQ4912-73-29 15:55:31 Test Item Value Reference Range Interpretation Comments PT (test code = PT) 12.8 s 12.0-14.7 [facility] XkusolfVWXOCIRZYZ2648-58-30 15:55:3113.7[facility] HermannHEMATOLOGY 2013-12-17 15:55:314.88[facility] VksskzxMBMMNVDUSR0693-07-76 15:55:31 Test Item Value Reference Range Interpretation Comments MCH (test code = MCH) 28.1 pg 27.0-31.0 [facility] DuoxcuhEIUGOJMXEI5006-49-29 15:55:3142.1[facility] HermannHEMATOLOGY 2013-12-17 15:55:3186.4[facility] DzlsnwnDAGPMMRTYM9756-40-08 15:55:3114.3[facility] JhoxxniTNROHFPUEL9893-25-19 15:55:3132.5[facility] OetkdfsKMGQDKUDAH6873-77-09 15:55:318.4[facility] FzyxgfnYEZOHCYQZB8148-07-68 15:55:04785Nzwvulln Maciej UPBZYIQRTP9087-44-58 15:55:317.2[facility] EuhayshCRVZIIEDDQ3698-22-52 15:55:31 10.7[facility] NzrkvaaEIJKTLFEIT9148-86-99 15:55:3127.2[facility] HermannHEMATOLOGY 2013-12-17 15:55:311.9[facility] NfrpakwPWQRPFOVHX1160-77-51 15:55:313.2[facility] YewnfmpSRPQIWCTRM8146-68-21 15:55:310.6[facility] FqmvafwKLJAXKVMIS1442-60-81 15:55:314.2[facility] UmwyheaLREPSDPBCX9546-91-72 15:55:310.2[facility] LPZEGBCOEJ4689-86-33 15:55:310.8[facility] OegoravBNHKWFUJBG9369-43-73 15:55:31 58.3[facility] HermannPARATHYROID KAWPUIF7171-83-53 15:55:191.11[facility] PARATHYROID OHVFZMO3936-52-59 15:55:191.17[facility] HermannDRUG KUIYWR8381-99-11 03:45:57Negative *NA*(12/16/13 10:45 PM)[facility]annDR[facility] CWQAPE1314-33-11 03:45:57Positive *ABN*(12/16/13 10:45 PM)[facility]annDR[facility] LNVBJI5549-77-19 03:45:57Negative *NA*(12/16/13 10:45 PM)[facility]annDR[facility] KWPUIC9461-02-99 03:45:57Negative *NA*(12/16/13 10:45 PM)[facility]annDR[facility] UOWDZT8026-87-40 03:45:57Negative *NA*(12/16/13 10:45 PM)[facility]annDR[facility] TNWHFE8432-70-35 03:45:57See Note 6(12/16/13 10:45 PM)[facility]annDR[facility] ZRJAVR7308-82-44 03:45:57Negative *NA*(12/16/13 10:45 PM)[facility]annDR[facility] DTQJHV4014-80-71 03:45:57Negative *NA*(12/16/13 10:45 PM)[facility] HermannCARDIAC ODSQMPB4875-10-32 03:45:0056[facility]annCARDIAC YDKUSGM6798-19-39 03:45:00<0.010[facility] HermannCARDIAC STJAKDN8969-34-02 03:45:00<0.02[facility] HermannCARDIAC ENZYMES 2013-12-17 03:45:0013[facility] CwwneotFSSXPL0162-96-16 03:45:0018[facility] QYATQP8121-87-44 03:45:0088[facility] MtudcfiFKWDYU0595-76-75 03:45:0088[facility] XekjomsLZDBVJ6001-57-78 03:45:003.08[facility] NziltjjBTMTOG5662-30-70 03:45:71835 [facility] FyjrhlpMOSNEY0234-69-08 03:45:0051[facility] HermannSPECIAL CHEMISTRY 2013-12-17 03:45:005.3[facility] HermannTHYROID MDEWL7750-45-15 03:45:000.870 [facility]annCARDIAC WTWZTPV0781-23-56 22:09:0042[facility]annCARDIAC PBHCSHI2742-53-97 22:09:00<0.02[facility] HermannCHEM DOCFD7008-36-14 19:30:00 1.3[facility] RowtbycCBKFQKOOCO8434-12-20 19:30:00 Test Item Value Reference Range Interpretation Comments PT (test code = PT) 11.8 s 12.0-14.7 [facility] JtbwyosANINDBVEEX2834-59-73 19:30:000.87[facility] HermannHEMATOLOGY 2013-12-16 19:30:00 Test Item Value Reference Range Interpretation Comments PTT (test code = PTT) 31.2 s 22.9-35.8 [facility] RquozrsBSGHINTGLV1635-45-63 19:30:004.69[facility] HermannHEMATOLOGY 2013-12-16 19:30:006.6[facility] BkoyeycOBUKCNTJHV4573-35-45 19:30:0040.5[facility] BummhugSFXHJREGTE7341-24-86 19:30:0086.4[facility] VxhwicxGYCUJPKKIT4141-68-29 19:30:0013.6[facility] IuqorhxKGZFCIBAVG3600-59-50 19:30:00 Test Item Value Reference Range Interpretation Comments MCH (test code = MCH) 29.0 pg 27.0-31.0 [facility] NkeyqhdHLDVNURUBV6859-83-52 19:30:0033.6[facility] HermannHEMATOLOGY 2013-12-16 19:30:97315Mpnbzexa YcaxiamVWEWZPDRML2127-12-03 19:30:0013.4[facility] TjovxskNEPSCSFXGV9927-62-37 19:30:008.6[facility] VbylgxuUPCNNQDZBA1903-71-73 19:30:000.8[facility] QrlfdnlYQLOUBQFIK4465-21-83 19:30:000.0[facility] HIYEFJZISO8603-23-80 19:30:0012.1[facility] QcsfxzdDPSYJDHQOU6724-73-48 19:30:00 3.8[facility] FbbgxkkWNAGHAPHYR9591-71-07 19:30:000.6[facility] HermannHEMATOLOGY 2013-12-16 19:30:003.9[facility] RalpcdsVDNQARQTRD8718-15-28 19:30:000.3[facility] AvygoitXAWCTIVOVI8064-38-98 19:30:001.6[facility] IovmpxnCDINOSNRCW7662-55-56 19:30:0025.0[facility] QxanaigPBESLOSNEM8788-28-91 19:30:0058.5[facility] CHEM LMCPA1693-34-47 17:43:2479[facility] HermannCHEM DVSUV2519-74-82 17:43:240.9 [facility] HermannCHEM HZRXE9635-72-21 17:43:27350Lclfdmkb HermannCHEM PANEL 2013-12-16 17:43:244.5[facility] HermannCHEM DFWOO0372-13-30 17:43:99941Vrkaterl HermannCHEM WUBGJ1929-23-53 17:43:2478[facility] HermannCHEM JVWHN8528-77-71 17:43:2411[facility] HermannCHEM EFHDR5465-91-31 17:43:241.0[facility] HermannCHEM NDAXW7979-09-88 17:43:2412[facility] HermannCHEM LIQVS8837-85-12 17:43:243.6 [facility]annCHEM ZWNIH3200-22-51 17:43:2416.5[facility] HermannCHEM PANEL 2013-12-16 17:43:247.2[facility] HermannCHEM TKEKM5243-81-31 17:43:2419[facility] HermannCHEM WOVCI3553-52-49 17:43:2423[facility] HermannCHEM UEHKN4647-55-45 17:43:249.2[facility] HermannCHEM RUQQZ7153-16-54 17:43:240.3[facility] HermannCHEM KOTKT6938-60-13 17:43:243.6[facility] HermannCHEM IMIRN1455-91-94 17:43:2487 [facility]annCHEM JXIDT4314-85-64 17:43:2431[facility] HermannCARDIAC ENZYMES 2013-12-16 17:43:0056[facility] HermannCARDIAC JYUCCVZ7971-72-26 17:43:00<0.02 [facility]annCARDIAC EYSLGNX8838-89-36 19:12:00<0.02[facility] CARDIAC MVQDZJV8538-64-89 19:12:0049[facility] HermannCARDIAC CRUALWE5836-46-68 19:12:00<0.010[facility] ErocuxbZSQJWIKYU1025-57-53 19:12:0036[facility] CARDIAC CJBWCXG1254-77-87 12:35:00<0.010[facility]annCARDIAC ENZYMES 2013-11-08 12:35:0054[facility]annCARDIAC PAJQJSX1948-52-23 12:35:00<0.02 [facility]annCARDIAC FYBMQYN4983-36-79 08:36:00<0.02[facility] BGGHMJUDOUFK1516-63-00 08:36:0011.4[facility] FqzefpqLXTIGCUYFPZS0620-83-57 08:36:0069[facility] PenmedzWUQMHJWBDIBO7661-10-42 08:36:009.2[facility] SPWLUTINLGDY1824-15-14 08:36:0027[facility] KmqrybrJYPSDXWNHJXU2184-94-22 08:36:00 105[facility] OqqirrxMIEMXLPEWABJ2129-44-25 08:36:003.4[facility] PWWFHGOTZGNH1065-81-71 08:36:04216Erygjjjj ThhxdxhYVQSMXNWQOYX7081-46-18 08:36:0011[facility] VkhfijbBTDUISPZSYJW6545-61-24 08:36:0084[facility] WRUVZPSNXZWF2432-92-50 08:36:001.0[facility] SgpyhxcIJSQQEFCTO0721-56-16 08:36:00 0.1[facility] ObekueuFZQZFBTWXU8962-39-89 08:36:000.2[facility] HermannHEMATOLOGY 2013-11-08 08:36:000.8[facility] UhodlyxQBNGMWVOJT1648-86-64 08:36:0072.5[facility] TqgmbvdRHVDQIVRZQ8570-72-27 08:36:0017.0[facility] UrzlocuSKRGNDDALV4287-03-86 08:36:002.1[facility] ZfpqlfzUKKWVVUUAW9303-03-03 08:36:007.8[facility] KOKGKOUSKY1473-86-39 08:36:007.6[facility] WgyyqgdAADVXORJWW9921-03-85 08:36:000.6 [facility] NkaseggQTDJAVNKCQ1535-37-64 08:36:001.8[facility] HermannHEMATOLOGY 2013-11-08 08:36:008.7[facility] RojzdcvSYJGELAAKU8158-04-71 08:36:0014.0[facility] GyfojjbOZXCKDAGWZ6488-44-19 08:36:28841Ijvfvqjj OgbztmdHPTMNDCCAS3781-89-00 08:36:0033.9[facility] WzzqsjtYMBMGQHJDG5777-95-73 08:36:004.65[facility] YHEOTFSQWI7311-71-62 08:36:0010.6[facility] FggtfleTEOXUOSUNF8616-05-72 08:36:00 Test Item Value Reference Range Interpretation Comments MCH (test code = MCH) 29.3 pg 27.0-31.0 [facility] SuxcapwBXEUYXCYFU7927-54-79 08:36:0086.6[facility] HermannHEMATOLOGY 2013-11-08 08:36:0013.6[facility] BkyziepNDBFUENFLI1774-99-76 08:36:0040.2[facility]
[2020-08-20 01:53] LABS: Urine Blood NEGATIVE (NEG); Urine Glucose NEGATIVE (NEG); Urine Protein NEGATIVE (NEG)
[2020-08-20 01:53] LABS: Absolute Lymphocytes (CBC) 2.2 K/uL (0.7-4.9); Basophils % 0.9 % (0-1.3); Hematocrit 35.5 % (36.0-45.0); Lymphocytes % 31.9 % (15.3-44.8); MPV 8.3 fL (7.6-11.3); RBC Red Blood Cell Count 4.13 M/uL (3.86-4.86)
[2020-08-20 01:54] LABS: Protime INR 0.91
[2020-08-20] MEDS ORDERED: MORPHINE 2 MG/ML SYR ONE ×2 (02:20→04:11)
[2020-08-20] MEDS ORDERED: ONDANSETRON 4 MG/2 ML VIAL ONE (02:20)
[2020-08-20 02:21] LABS: ALT/SGPT 22 U/L (12-78); AST/SGOT 20 U/L (15-37); Albumin 3.2 g/dL (3.4-5.0); Alkaline Phosphatase 75 U/L (45-117); BUN Blood Urea Nitrogen 5 mg/dL (7-18); Bicarbonate 28 mmol/L (21-32); Bilirubin Direct < 0.1 mg/dL (0-0.2); Bilirubin Total 0.3 mg/dL (0.2-1.0); Glucose Level 125 mg/dL (74-106); Lipase 330 U/L (73-393); Magnesium 2.2 mg/dL (1.8-2.4); NT PRO-BNP 40 pg/mL (<125); Potassium 3.1 mmol/L (3.5-5.1); Protein, Total 6.2 g/dL (6.4-8.2); Sodium Level 146 mmol/L (136-145); Troponin (Emerg Dept Use Only) 0.02 ng/mL (0.0-0.045)
[2020-08-20] MEDS ORDERED: NA CHLORIDE 0.9% 500 ML ONE (04:07)
[2020-08-20] MEDS ORDERED: POTASSIUM 25 MEQ EFFERV TAB ONE (04:07)
--- NOTE | 2020-08-20 04:33 | ER ---
Nurse's Notes [facility] Name: Winsome Yepez Age: 70 yrs Sex: Female : 1950 Arrival Date: 08/20/2020 Time: 00:20 Bed 4 Private MD: Diagnosis: Low back pain;Leiomyoma of uterus;Sciatica, left side;Hypokalemia Presentation: 08/20 00:20 Chief complaint: EMS states: PATIENT IS COMPLAINING OF LOW BACK PAIN, WITH HISTORY OF rv BACK SURGERY FEW YEARS BACK, WITH LEFT SIDE ABDOMINAL PAIN, MICHAEL/BUMP ON LEFT SIDE OF THE ABDOMEN, WITH NUMBNESS OF THE LEFT LEG. Coronavirus screen: Client denies travel out of the [place] in the last 14 days. At this time, the client does not indicate any symptoms associated with coronavirus-19. Ebola Screen: No symptoms or risks identified at this time. Initial Sepsis Screen: Does the patient meet any 2 criteria? No. Patient's initial sepsis screen is negative. Does the patient have a suspected source of infection? No. Patient's initial sepsis screen is negative. Risk Assessment: Do you want to hurt yourself or someone else? Patient reports no desire to harm self or others. Onset of symptoms is unknown. 00:20 Method Of Arrival: EMS: [facility] rv 00:20 Acuity: CYNTHIA 3 rv Triage Assessment: 00:23 General: Appears uncomfortable, Behavior is appropriate for age. ea 00:35 Pain: Complains of pain in back. rv Historical: - Allergies: 00:24 PENICILLINS; rv - PMHx: 00:24 Asthma; High Cholesterol; Hypertension; Myocardial infarction; Sickle Cell; rv - PSHx: 00:24 BACK SURGERY; rv - Immunization history:: Adult Immunizations up to date. - Social history:: Smoking status: . - Family history:: not pertinent. Screenin:22 Abuse screen: Denies threats or abuse. Nutritional screening: No deficits noted. ea Tuberculosis screening: No symptoms or risk factors identified. Fall Risk None identified. Assessment: 01:00 General: Appears in no apparent distress. Behavior is appropriate for age. Pain: ea Complains of pain in low back area. Neuro: Level of Consciousness is awake, alert, obeys commands, Oriented to person, place, time, situation. Cardiovascular: Patient's skin is warm and dry. Respiratory: Airway is patent Respiratory effort is even, unlabored, Respiratory pattern is regular, symmetrical. Derm: Skin is pink, warm \T\ dry. 02:37 Reassessment: Patient and/or family updated on plan of care and expected duration. Pain ea level reassessed. Patient is alert, oriented x 3, equal unlabored respirations, skin warm/dry/pink. Pt resting with eyes closed, respirations even and unlabored, chest expansions even and symmetrical. no s/s of pain or discomfort noted at this time. 03:00 Reassessment: Patient and/or family updated on plan of care and expected duration. Pain ea level reassessed. Patient is alert, oriented x 3, equal unlabored respirations, skin warm/dry/pink. Pt taken to CT. Vital Signs: 00:20 BP 131 / 108; Pulse 87; Resp 17; Temp 98; Pulse Ox 98% ; Weight 40.82 kg; rv 02:38 BP 125 / 71; Pulse 92; Resp 18; Pulse Ox 99% on R/A; ea 03:25 BP 111 / 53; Pulse 86; Resp 18; Pulse Ox 97% ; ea 04:18 BP 122 / 75; Pulse 83; Resp 18; Pulse Ox 97% ; ea ED Course: 00:20 Patient arrived in ED. rv 00:22 Mark Jones MD is Attending Physician. quin 00:22 Sara Kent, [place]AM is Primary Nurse. ea 00:23 Triage completed. rv 00:23 Patient has correct armband on for positive identification. Placed in gown. Bed in low ea position. Call light in reach. Side rails up X2. monitor tech on. Pulse ox on. NIBP on. 00:23 Arm band placed on right wrist. Patient placed in an exam room, on a stretcher, on ea pulse oximetry. 01:39 Inserted saline lock: 20 gauge in right antecubital area, using aseptic technique. ea Blood collected. 01:46 XRAY Chest (1 view) In Process Unspecified. EDMS 03:26 CT Abd/Pelvis - IV Contrast Only In Process Unspecified. EDMS 04:32 Romain Dallas MD is Referral Physician. quin 04:33 Paco Shelby MD is Referral Physician. quin 04:51 No provider procedures requiring assistance completed. IV discontinued, intact, rv bleeding controlled, No redness/swelling at site. Administered Medications: 02:15 Drug: Zofran (Ondansetron) 4 mg Route: IVP; Site: right forearm; ea 04:53 Follow up: Response: No adverse reaction rv 02:16 Drug: morphine 2 mg Route: IVP; Site: right forearm; ea 04:00 Drug: morphine 2 mg Route: IVP; Site: right forearm; ea 04:53 Follow up: Response: No adverse reaction; RASS: Alert and Calm (0) rv 04:00 Drug: Potassium Effervescent Tablet 25 mEq Route: PO; ea 04:53 Follow up: Response: No adverse reaction rv 04:00 Drug: NS 0.9% 500 ml Route: IV; Rate: bolus; Site: right forearm; ea 04:53 Follow up: IV Status: Completed infusion; IV Intake: 500ml rv Intake: 04:53 IV: 500ml; Total: 500ml. rv Outcome: 04:33 Discharge ordered by MD. tsai 04:51 Discharged to home ambulatory. rv 04:51 Condition: good 04:51 Discharge instructions given to patient, Instructed on discharge instructions, follow up and referral plans. medication usage, Demonstrated understanding of instructions, follow-up care, medications, Prescriptions given X 3. 04:52 Patient left the ED. rv Signatures: Dispatcher [employer] EDMark Cherry MD MD cha Antunez, Elena, RN RN Otto Pompa RN RN rv
--- NOTE | 2020-08-20 04:33 | EDPHYS ---
Physician Documentation [facility] Name: Winsome Yepez Age: 70 yrs Sex: Female : 1950 Arrival Date: 08/20/2020 Time: 00:20 Bed 4 Private MD: Mark Hand HPI: 08/20 01:54 This 70 yrs old Black Female presents to ER via EMS with complaints of Low Back Pain. quin 01:54 The patient presents with pain that is acute, with no known mechanism of injury. The quin symptoms are located in the low back. The pain radiates to the left lower back and left leg. The problem was sustained from a chronic condition, the patient has had previous back surgery. Onset: The symptoms/episode began/occurred 2 day(s) ago. Modifying factors: The patient symptoms are alleviated by remaining still, the patient symptoms are aggravated by any movement, bending, lifting, movement. Associated signs and symptoms: Pertinent positives: abdominal pain, numbness, weakness. Severity of symptoms: At their worst the symptoms were mild, moderate, yesterday. The patient has experienced similar episodes in the past, multiple times. Historical: - Allergies: 00:24 PENICILLINS; rv - PMHx: 00:24 Asthma; High Cholesterol; Hypertension; Myocardial infarction; Sickle Cell; rv - PSHx: 00:24 BACK SURGERY; rv - Immunization history:: Adult Immunizations up to date. - Social history:: Smoking status: . - Family history:: not pertinent. ROS: 01:54 Constitutional: Negative for fever, chills, and weight loss, Eyes: Negative for injury, quin pain, redness, and discharge, ENT: Negative for injury, pain, and discharge, Neck: Negative for injury, pain, and swelling, Cardiovascular: Negative for chest pain, palpitations, and edema, Respiratory: Negative for shortness of breath, cough, wheezing, and pleuritic chest pain, : Negative for injury, bleeding, discharge, and swelling, MS/Extremity: Negative for injury and deformity, Skin: Negative for injury, rash, and discoloration, Neuro: Negative for headache, weakness, numbness, tingling, and seizure, Psych: Negative for depression, anxiety, suicide ideation, homicidal ideation, and hallucinations, Allergy/Immunology: Negative for hives, rash, and allergies, Endocrine: Negative for neck swelling, polydipsia, polyuria, polyphagia, and marked weight changes, Hematologic/Lymphatic: Negative for swollen nodes, abnormal bleeding, and unusual bruising. 01:54 Abdomen/GI: Positive for abdominal pain. 01:54 Back: Positive for decreased range of motion, pain at rest, pain with movement. 01:54 MS/extremity: Positive for paresthesias, of the left leg. Exam: 01:54 Constitutional: This is a well developed, well nourished patient who is awake, alert, quin and in no acute distress. Head/Face: Normocephalic, atraumatic. Eyes: Pupils equal round and reactive to light, extra-ocular motions intact. Lids and lashes normal. Conjunctiva and sclera are non-icteric and not injected. Cornea within normal limits. Periorbital areas with no swelling, redness, or edema. ENT: Nares patent. No nasal discharge, no septal abnormalities noted. Tympanic membranes are normal and external auditory canals are clear. Oropharynx with no redness, swelling, or masses, exudates, or evidence of obstruction, uvula midline. Mucous membranes moist. Neck: Trachea midline, no thyromegaly or masses palpated, and no cervical lymphadenopathy. Supple, full range of motion without nuchal rigidity, or vertebral point tenderness. No Meningismus. Chest/axilla: Normal chest wall appearance and motion. Nontender with no deformity. No lesions are appreciated. Cardiovascular: Regular rate and rhythm with a normal S1 and S2. No gallops, murmurs, or rubs. Normal PMI, no JVD. No pulse deficits. Respiratory: Lungs have equal breath sounds bilaterally, clear to auscultation and percussion. No rales, rhonchi or wheezes noted. No increased work of breathing, no retractions or nasal flaring. Female : Normal external genitalia. Skin: Warm, dry with normal turgor. Normal color with no rashes, no lesions, and no evidence of cellulitis. MS/ Extremity: Pulses equal, no cyanosis. Neurovascular intact. Full, normal range of motion. Neuro: Awake and alert, GCS 15, oriented to person, place, time, and situation. Cranial nerves II-XII grossly intact. Motor strength 5/5 in all extremities. Sensory grossly intact. Cerebellar exam normal. Normal gait. Psych: Awake, alert, with orientation to person, place and time. Behavior, mood, and affect are within normal limits. 01:54 Abdomen/GI: Inspection: abdomen appears normal, Bowel sounds: normal, Palpation: mild abdominal tenderness, moderate abdominal tenderness, in the right upper quadrant, left upper quadrant, right lower quadrant and left lower quadrant, Liver: no appreciated palpable abnormalities, Hernia: not appreciated. 02:02 ECG was reviewed by the Attending Physician. [facility] Vital Signs: 00:20 BP 131 / 108; Pulse 87; Resp 17; Temp 98; Pulse Ox 98% ; Weight 40.82 kg; rv 02:38 BP 125 / 71; Pulse 92; Resp 18; Pulse Ox 99% on R/A; ea 03:25 BP 111 / 53; Pulse 86; Resp 18; Pulse Ox 97% ; ea 04:18 BP 122 / 75; Pulse 83; Resp 18; Pulse Ox 97% ; ea MDM: 00:22 Patient medically screened. [facility] 02:01 Differential diagnosis: strain, fracture, sciatica, Herniated disc UTI. Data reviewed: [facility] vital signs, nurses notes, lab test result(s), EKG, radiologic studies, CT scan, plain films. Data interpreted: core paster: rate is 87 beats/min, rhythm is regular, Pulse oximetry: on room air is 98 %. Test interpretation: by ED physician or midlevel provider: ECG, plain radiologic studies. Counseling: I had a detailed discussion with the patient and/or guardian regarding: the historical points, exam findings, and any diagnostic results supporting the discharge/admit diagnosis, the presence of at least one elevated blood pressure reading (>120/80) during this emergency department visit, lab results, radiology results. 08/20 00:40 Order name: Urine Dipstick--Ancillary (enter results); Complete Time: 03:44 ar5 08/20 01:21 Order name: Basic Metabolic Panel; Complete Time: 03:44 ea 08/20 01:21 Order name: CBC with Diff; Complete Time: 03:44 ea 08/20 01:21 Order name: LFT's; Complete Time: 03:44 ea 08/20 01:21 Order name: Magnesium; Complete Time: 03:44 ea 08/20 01:21 Order name: NT PRO-BNP; Complete Time: 03:44 ea 08/20 01:21 Order name: PT-INR; Complete Time: 03:44 ea 12/23 01:21 Order name: Troponin (emerg Dept Use Only); Complete Time: 03:44 08/20 01:21 Order name: XRAY Chest (1 view) 08/20 01:21 Order name: Lipase; Complete Time: 03:44 08/20 01:54 Order name: CT Abd/Pelvis - IV Contrast Only [facility] 08/20 00:37 Order name: Urine Dipstick-Ancillary (obtain specimen); Complete Time: 00:37 08/20 01:21 Order name: EKG; Complete Time: 01:22 08/20 01:21 Order name: Cardiac monitoring; Complete Time: 01:38 08/20 01:21 Order name: EKG - Nurse/Tech; Complete Time: :38 08/20 01:21 Order name: IV Saline Lock; Complete Time: 01:39 08/20 01:21 Order name: Labs collected and sent; Complete Time: 01:39 08/20 01:21 Order name: O2 Per Protocol; Complete Time: :39 08/20 01:21 Order name: O2 Sat Monitoring; Complete Time: 01:39 EC:02 Rate is 94 beats/min. Rhythm is regular. QRS Rankin is Normal. TN interval is normal. QRS quin interval is normal. QT interval is normal. No Q waves. T waves are Normal. No ST changes noted. Clinical impression: Normal ECG and No evidence of ischemia. Interpreted by me. Reviewed by me. Administered Medications: 02:15 Drug: Zofran (Ondansetron) 4 mg Route: IVP; Site: right forearm; ea 04:53 Follow up: Response: No adverse reaction rv 02:16 Drug: morphine 2 mg Route: IVP; Site: right forearm; ea 04:00 Drug: morphine 2 mg Route: IVP; Site: right forearm; ea 04:53 Follow up: Response: No adverse reaction; RASS: Alert and Calm (0) rv 04:00 Drug: Potassium Effervescent Tablet 25 mEq Route: PO; ea 04:53 Follow up: Response: No adverse reaction rv 04:00 Drug: NS 0.9% 500 ml Route: IV; Rate: bolus; Site: right forearm; ea 04:53 Follow up: IV Status: Completed infusion; IV Intake: 500ml rv Disposition: 08/20/20 04:33 Discharged to Home. Impression: Low back pain, Leiomyoma of uterus, Sciatica, left side, Hypokalemia. - Condition is Stable. - Discharge Instructions: Back Pain, Adult, Chronic Back Pain, Musculoskeletal Pain, Sciatica, Back Injury Prevention, [id number]-[id number], Back Pain, Adult, Vvbb-af-[id number], Sciatica, Bzcn-rz-Loor, Hypokalemia. - Prescriptions for Tylenol- Codeine #3 300-30 mg Oral Tablet - take 2 tablets by ORAL route every 6 hours As needed; 20 tablet. Medrol (Ikan) 4 mg Oral Tablets, Dose Pack - take 1 tablet by ORAL route as directed - follow package instructions; 1 packet. Motrin IB 200 mg Oral Tablet - take 2 tablet by ORAL route every 6 hours As needed as needed with food; 30 tablet. - Medication Reconciliation Form, Thank You Letter, Antibiotic Education, Prescription Opioid Use form. - Follow up: Private Physician; When: 2 - 3 days; Reason: Recheck today's complaints, Continuance of care, Re-evaluation by your physician. Follow up: Romain Dallas MD; When: 2 - 3 days; Reason: Recheck today's complaints, Re-evaluation by your physician. Follow up: Paco Shelby MD; When: 2 - 3 days; Reason: Recheck today's complaints, Re-evaluation by your physician. - Problem is new. - Symptoms have improved. Signatures: Dispatcher [employer] EDMark Cherry MD MD cha Antunez, Elena, RN RN ea Vicente, Ronaldo, RN RN rv Corrections: (The following items were deleted from the chart) 04:34 04:33 08/20/2020 04:33 Discharged to Home. Impression: Low back pain; Leiomyoma of quin uterus; Sciatica, left side. Condition is Stable. Forms are Medication Reconciliation Form, Thank You Letter, Antibiotic Education, Prescription Opioid Use. Follow up: Private Physician; When: 2 - 3 days; Reason: Recheck today's complaints, Continuance of care, Re-evaluation by your physician. Follow up: Romain Dallas; When: 2 - 3 days; Reason: Recheck today's complaints, Re-evaluation by your physician. Follow up: Paco Shelby; When: 2 - 3 days; Reason: Recheck today's complaints, Re-evaluation by your physician. Problem is new. Symptoms have improved. [facility] 04:52 04:34 08/20/2020 04:33 Discharged to Home. Impression: Low back pain; Leiomyoma of rv uterus; Sciatica, left side; Hypokalemia. Condition is Stable. Discharge Instructions: Back Pain, Adult, Chronic Back Pain, Musculoskeletal Pain, Sciatica, Back Injury Prevention, Ssxj-vi-Armh, Back Pain, Adult, Nkzt-oc-Ubqi, Sciatica, [id number]-[id number]. Forms are Medication Reconciliation Form, Thank You Letter, Antibiotic Education, Prescription Opioid Use. Follow up: Private Physician; When: 2 - 3 days; Reason: Recheck today's complaints, Continuance of care, Re-evaluation by your physician. Follow up: Romain Dallas; When: 2 - 3 days; Reason: Recheck today's complaints, Re-evaluation by your physician. Follow up: Paco Shelby; When: 2 - 3 days; Reason: Recheck today's complaints, Re-evaluation by your physician. Problem is new. Symptoms have improved. quin
--- NOTE | 2020-08-20 09:07 | RAD REPORT ---
EXAM DESCRIPTION: RAD - Chest Single View - 08/20/2020 1:46 am CLINICAL HISTORY: CHEST PAIN COMPARISON: July 05 TECHNIQUE: AP portable chest image was obtained 08/20/2020 1:46 am . FINDINGS: Chronic interstitial pattern is present matching comparison. No failure, infiltrate or mas s identified. Severity of chronic disease could mask earliest stages of an interstitial edema or infi ltrate. No mediastinal or hilar suspicious finding. Heart and vasculature are normal. No measurable pleural e ffusion and no pneumothorax. No acute bony abnormality seen. No acute aortic findings suspected. IMPRESSION: No acute cardiopulmonary process. No significant change from comparison study.
--- NOTE | 2020-08-20 13:39 | RAD REPORT ---
EXAM DESCRIPTION: CT - Abdomen Pelvis W Contrast - 08/20/2020 6:37 am CLINICAL HISTORY: ABD PAIN COMPARISON: 07/05/2020 TECHNIQUE: CT of the abdomen and pelvis performed following IV administration of iodinated contras t.. FINDINGS: Lung Bases: Mild bibasilar opacities may represent dependent atelectasis. Bones: Posterior fixation at L4-S1 with discectomy. These endplate spondylosis. Stable compression de formities of L2 and T12. Abdomen: Liver: The liver has normal size and density. No intrahepatic biliary dilatation. Tiny hypodensities in the liver may represent cysts. Gallbladder: No calcified gallstones. The gallbladder is contracted. Spleen, Pancreas, and Adrenal Glands: The spleen, pancreas, and adrenal glands are unremarkable. Kidneys: No hydronephrosis or obstructing calculus. Bilateral nonobstructing nephrolithiasis. Vasculature: Aortoiliac atherosclerosis. IVC is unremarkable. Portal vein is patent. Stomach: The stomach and duodenum have normal course. Other: No free intraperitoneal air. No free fluid or lymphadenopathy. Pelvis: Bladder: Urinary bladder is unremarkable. Bowel: No dilated loops of large or small bowel. Scattered diverticula of the colon. Appendix: Normal appendix. Pelvis: Enlarged fibroid uterus. IMPRESSION: 1. Bilateral nonobstructing nephrolithiasis. 2. Enlarged uterus with multiple fibroids. 3. Diverticulosis without evidence of acute diverticulitis. This exam was performed according to our departmental dose-optimization program, which includes autom ated exposure control, adjustment of the mA and/or kV according to patient size and/or use of iterati ve reconstruction technique. Electronically signed by: Zaki Suarez 08/20/2020 4:16 AM SEED SPECIALIST Due to temporary technical issues with the PACS/Fluency reporting system, reports are being signed by the in house radiologist without review as a courtesy to ensure prompt reporting. The interpreting r adiologist is fully responsible for the content of the report.
[2020-08-20 15:40] VITALS: TEMP 98
[2020-08-20 15:42] VITALS: O2SAT 97
[2020-08-20 15:43] VITALS: BP 122/75
== END 2020-08-20 04:52 | disposition home or self-care (01) ==
LOC: ER 00:20
DX: M54.32 Sciatica, left side (principal); E87.6 Hypokalemia; D25.9 Leiomyoma of uterus, unspecified; I10 Essential (primary) hypertension; Z88.0 Allergy status to penicillin
CPT/HCPCS: 96361; 93005; 85025; 80048; 36415; 83735; 85610; 80076; 81003; 84484; 83690; 83880; 74177; 71045; 96375; 96374; 99285; Q9967; J2270 ×2; J7040; J2405

== ENCOUNTER 2020-09-17 16:17 | Emergency (ER) | payer OTHER ==
--- OUTSIDE RECORDS SUMMARY | 2020-09-17 16:19 | XMS REPORT | Clinical Summary ---
:1950 Author Organization [facility] Dist[facility] ict Address [facility] [place] [address] Care Team Providers Name Role Phone Unavailable [...] Health Maintenance Due Date Last Done Comments COVID-19 Vaccine (1 of 2) 1966 Breast Cancer Scrn (Yearly) 1990 FIT Colorectal Cancer Scrn 2000 IMM Pneumococcal Age 65 and Up 2015 IMM Influenza Seasonal May to October (>/= 19 yrs) 05/29/2020 Results Not on fileafter 09/17/2019 Insurance Payer Benefit Plan / Subscriber ID Effective Dates Phone Addre ss Type Group [employer] MEDICAID [place] [id number] 2018-Manjeet [phone] [id number] [place] [address] [place] [employer] DUAL [id number] 2018-Herbert [phone] [employer] O MEDICARE OPTION MMP nt [id number] OPTIONS [address] [address] [place] [address]
--- OUTSIDE RECORDS SUMMARY | 2020-09-17 16:27 | XMS REPORT | Continuity of Care Document ---
:1950 Author Organization [facility] Information Jena Care Team Providers Name Role Phone [facility] Information Exchange Unavailable Un available Problems Problem Status Onset Classification Date Comments Sourc e Date Reported UPPER ABD PAIN Active 01/20/20 [facility] [place] Chest pain, 01/17/20 01/19/2017 Nakia s unspecified [address] [place] [address], [place] CHEST PAIN Active 01/17/20 [place] [address] Maciej,[facility] Urinary tract 11/29/19 12/01/2016 Franklyn arland infection, site 17 not specified Dorsalgia, 11/29/19 12/01/2016 Diane and unspecified 17 PAIN Active 11/29/19 [place] [address] Maciej Bitten or stung by 11/07/19 11/09/2016 [facility] nonvenomous insect 17 and other nonvenomous arthropods, initial encounter FACIAL SWELLING Active 11/07/19 [facility] [place] SYNCOPE Active 10/10/[address] SICK Active 10/10/[address] Discharge 04/14/20 04/17/2016 [facility] Diagnosis: 16 Medical Syncope, near Center CHEST PAIN, Active 03/11/20 [facility] HYPOTENSION 16 [place] SOB Active 03/11/20 [place] [address] [facility] 03/05/20 03/08/2016 [place] Diagnosis: 16 Trichomonas vaginitis Discharge 03/05/20 03/08/2016 [place] Diagnosis: Lumbago 16 Discharge 02/29/20 03/03/2016 [place] Diagnosis: 16 Bronchitis BACK PAIN Active 09/14/19 [facility] 16 [place],[facility] COPD, CHEST PAIN Active 09/03/19 16 [place] HEADACHE Active 07/15/20 15 [place] SOB/ WEAKNESS Active 07/04/20 15 [facility] LOWER BACK AND LEG Active 07/04/20 [place] PAIN [address] [place] [address] SHORTNESS OF Active 06/03/20 BREATH 15 [facility] Discharge 05/18/20 05/21/2015 [facility] Diagnosis: 15 Medical Abdominal pain, Cent er acute, epigastric NAUSEA Active 05/18/20 [place] [address] Medical Center Discharge 05/09/20 05/12/2015 [facility] Diagnosis: Chest 15 Med ical pain Center,[facility] Discharge 05/02/20 05/05/2015 [facility] Diagnosis: Vertigo 15 M edical Center Discharge 05/02/20 05/05/2015 [facility] Diagnosis: Syncope 15 M edical and collapse Center FALL Active 05/02/20 [place] [address] Medical Center Discharge 04/11/20 04/14/2015 Diagnosis: Knee 15 [facility] pain, right Discharge 04/11/20 04/14/2015 Diagnosis: Lumbar [facility] spondylosis Discharge 04/11/20 04/14/2015 Diagnosis: 15 [facility] Anterolisthesis Discharge 04/11/20 04/14/2015 Diagnosis: 15 [facility] Accidental fall Discharge 03/30/20 04/02/2015 Diagnosis: Chronic 15 [facility] pain in right shoulder NECK AND SHOULDER Active 03/30/20 PAIN 15 [facility] SOB/CHEST PAIN Active 03/21/[address] HYPOTENSION, CHEST Active 03/21/20 H PAIN 15 [facility] Discharge 03/11/20 03/14/2015 Diagnosis: Chest 15 [facility] wall muscle strain LOWER BACK PAIN Active 03/11/20 15 [facility] Discharge 03/05/20 03/08/2015 [facility] Diagnosis: Dyspnea 15 M edical Center UPPER BACK PAIN Active 02/25/20 15 [facility] ACUTE CHEST PAIN Active 02/25/20 15 [facility] UNSTABLE ANGINA; Active 02/17/20 HYPOTENSION [place] CHEST/LEG PAIN Active 12/23/19 14 [facility] OTHER Active 12/17/19 [place] [address] Medical Center ACS Active 12/17/19 [place] [address] [facility] Center Asthma (disorder) Active Problem 01/22/2017 [facility], [facility] [facility] Cardiac chest pain Active Problem 01/22/2017 [facility] (finding) [facility], [place] Tabby Am[place], [facility] Hypertensive Active Problem 01/22/2017 [place] as disorder, [facility] Center, (disorder) [place], Marjorie, [facility] [place] Hyperlipidemia Active Problem 01/22/2017 [facility] [place] (disorder) Medical Center,[facility],M H Marjorie, M Tabby Kraig t Myocardial Active Problem 01/22/2017 [facility] infarction Medical (disorder) Center,[facility],M H [facility], M Tabby Kraig t Smoking cessation Active Problem 01/22/2017 [facility] advice Medical (regime/therapy) Jose ter,[facility],M H Marjorie, M Tabby Kraig t Stented coronary Resolved Problem 01/22/2017 [facility] artery (finding) Med ical Center,[facility],M H Marjorie Substance abuse Active Problem 01/22/2017 [facility] (disorder) [facility] Tissue perfusion Active Problem 01/22/2017 [facility] measure [facility] (observable Center,M H entity) [place],M H Marjorie, M Tabby Kraig muhammad Heart disease Active Problem 12/28/2013 [place] ([place] [facility] CHEST PAIN NOS [place] [facility] INTERMED CORONARY Active [facility] ANGINA DECUBITUS Active [facility] HYPOTENSION NOS Active [facility] SYNCOPE AND Active [facility] COLLAPSE [facility] Medications Medication Details Route Status Patient Ordering Order Source Instructions Provider Date Famotidine 20 mg, Route: Inactive 01/19[facility] IVP, ONCE, 2016 [facility] Dosing Weight 45.455, kg, Priority: STAT, Start date: 01/19/17 13:00:00 CDT, Stop date: 01/19/17 13:00:00 CDT GI cocktail 30 mL, Route: Inactive [facility] PO, Dosing 2016 [facility] Weight 45.455, kg, ONCE, STAT, Start date: 01/19/17 13:00:00 CDT, Stop date: 01/19/17 13:00:00 CDT Ondansetron 4 mg, Route: Inactive 01/19[facility] IVP, ONCE, 2016 [facility] Dosing Weight 45.455, kg, Priority: STAT, Start date: 01/19/17 13:00:00 CDT, Stop date: 01/19/17 13:00:00 CDT Saline Flush 0.9% Notes: (Same Inactive 01/19[facility] as: BD 2016 [facility] Posiflush) Sodium Chloride 1,000 mL, Inactive 0.154 MEQ/ML 2,000 ml/hr, 2016 [facility] ast Injectable Infuse Over: Solution 30 minutes, Route: IV, ONCE, Priority: STAT, Dosing Weight 45.455 kg, Start date: 01/19/17 13:00:00 CDT, Duration: 1 doses or times, Stop date: 01/19/17 13:00:00 CDT clopidogrel Notes: (Same No Longer [place] As: Plavix) Active 2017 [facility] atorvastatin Notes: Same as Inactive [facility] Lipitor 2017 [facility] aspirin 81 mg 81 mg = 1 tab, Active [place] tablet, enteric PO, Daily, # 2017 Med ical coated 90 tab, 3 Center Refill(s), other metoprolol Notes: (Same [place] tartrate as: Lopressor) 2017 Medical 12.5 mg=1/2 X Center 25 mg TAB Meclizine Notes: (Same Inactive [facility] as: Antivert) 2017 [facility] nitrofurantoin 100 mg, PO, Inactive [place] BID, # 14 cap, 2017 Medical 0 Refill(s) Center meclizine 25 mg 25 mg = 1 tab, Active [facility] oral tablet PO, TID, PRN 2017 Medical for dizziness, Center # 60 tab, 0 Refill(s) Morphine Notes: (Same Inactive [facility] as:MORPhine 2017 Medical Sulfate) Center Ondansetron Notes: (Same Inactive [place] as as: Zofran) 2017 Medical MEDICATION Center WASTE Product Size: 4 mg Product Wasted: _0__ mg Aspirin Notes: Take Inactive [facility] with food. 2017 [facility] Saline Flush 0.9% Notes: Same Inactive [facility] as: BD 2017 Medical Posiflush Center [...] Tramadol Notes: Not to Inactive exceed 2017 [place] 400mg/day. (Same As: Ultram) Albuterol 0.833 Notes: (Same Inactive MG/ML / as: Duoneb) 2017 [place] Ipratropium [place] 0.167 MG/ML Inhalant Solution [DuoNeb] Saline Flush 0.9% Notes: Inactive preservative 2017 [place] free. Mupirocin 0.02 1 appl, TOP, Active MG/MG Topical TID, PRN as 2017 [place] Ointment needed, Apply [Bactroban] to affected area(s), X 14 day, # 60 gm, 0 Refill(s) Saline Flush 0.9% Notes: (Same Inactive as: BD 2017 [place] Posiflush) atorvastatin Notes: Same as Inactive [facility] Lipitor [address] [place] [address] Center remove patch Notes: Remove Inactive [place] patch 12 hours 2017 [facility] after Center application each day. metoprolol Notes: (Same [place] tartrate as: Lopressor) 2017 Medical 12.5 mg=1/2 X Center 50 mg TAB heparin sodium, Notes: porcine Inactive [place] porcine 2500 heparin 2017 [facility] UNT/ML Injectable Center Solution Protonix Notes: Tablet Inactive [facility] should not be 2017 [facility] chewed or Center crushed. (Same as: Protonix) Symbicort 160/4.5 Notes: (Same Inactive [facility] inhalation aerosol as: Symbicort) 2017 Medical with adapter WASTE: Center Aerosol - Return to Pharmacy Aspirin 325 MG Notes: Take Inactive [place] Oral Tablet with food. 2017 [facility] Omeprazole 20 mg, Route: No Longer [place] PO, Drug form: Active 2016 [facility] ECTAB, BID, Center Dosing Weight 50, kg, Start date: 10/11/16 9:00:00 FOREIGN LEGAL CONSULTANT, Duration: 30 day, Stop date: 11/09/16 17:00:00 CDT potassium chloride Notes: (Same Inactive [facility] as: K-Dur 20) 2017 Medical "Do Not Crush" Center With food and full glass of water Nitroglycerin 0.4 Notes: (Same No Longer [facility] MG Sublingual as:Nitroquick, Active 2017 Med [...] as: Tylenol) Docusate Notes: (Same No Longer [facility] as: Colace) Active 2017 Medical (Do Not Crush) Center Morphine Notes: (Same No Longer [facility] as:MORPhine Active 2016 Medical Sulfate) Center Acetaminophen 325 Notes: (Same No Longer [facility] MG / Hydrocodone as: [place] Active 2016 Medic al Bitartrate 5 MG 325/5) Do not C enter Oral Tablet exceed 4gm/day of acetaminophen. Ondansetron Notes: (Same No Longer [place] as: Zofran) Active 2017 Medical MEDICATION Center WASTE Product Size: 4 mg Product Wasted: 0 mg Dilaudid Notes: Same Inactive [place] as: Dilaudid 2017 Medical [place] potassium chloride Notes: (Same Inactive [facility] as: K-Dur 20) 2017 Medical "Do Not Crush" Center With food and full glass of water Aspirin Notes: Take Inactive [facility] with food. 2017 [facility] B-3-50 50 mg, Route: No Longer PO, Daily, Active 2016 [place] Dosing Weight 50, kg, Start date: 09/15/16 9:00:00 FOREIGN LEGAL CONSULTANT, Duration: 30 day, Stop date: 10/14/16 9:00:00 FOREIGN LEGAL CONSULTANT tramadol 50 mg = 1 tab, Active [place] hydrochloride 50 PO, BID, X 15 2016 M edical MG Oral Tablet day, # 30 tab, Ce nter 0 Refill(s) Acetaminophen 325 Notes: (Same Inactive [place] MG / Hydrocodone as: [place] 2016 Medic al Bitartrate 5 MG 325/5) Do not C enter Oral Tablet [[place] exceed 4gm/day 5/325] of acetaminophen. atorvastatin Notes: (Same Inactive as: Lipitor) 2015 [place] 200 ACTUAT Notes: Same Inactive Albuterol 0.09 as: Ventolin 2015 [place] MG/ACTUAT Metered HFA WASTE: Dose Inhaler Aerosol - [ProAir HFA] Return to Pharmacy Protonix Notes: Tablet Inactive should not be 2015 [place] chewed or crushed. (Same as: Protonix) Symbicort 160/4.5 Notes: (Same Inactive inhalation aerosol as: Symbicort) 2015 [place] with adapter WASTE: Aerosol - Return to Pharmacy Aspirin 81 MG Notes: Take Inactive Chewable Tablet with food. 2016 [place] and Omeprazole 20 mg, Route: Inactive PO, Drug form: 2015 [place] ECTAB, BID, Dosing Weight 50, kg, Start date: 03/12/16 9:00:00 CDT, Duration: 30 day, Stop date: 04/10/16 17:00:00 CDT metoprolol Notes: (Same Inactive tartrate as: Lopressor) 2015 [place] clopidogrel Notes: (Same Inactive As: Plavix) 2015 [place] Aspirin 325 MG Notes: Take Inactive Oral Tablet with food. 2015 [place] tramadol Notes: Not to Inactive hydrochloride 50 exceed 2015 [place] MG Oral Tablet 400mg/day. (Same As: Ultram) Naprosyn Notes: (Same Inactive as: Naprosyn) 2015 [place] Take with food. Lidocaine Notes: (Same Inactive Hydrochloride 0.05 as: Lidoderm) 2015 [place] MG/MG Transdermal Patch [Lidoderm] Aspirin Notes: Take Inactive with food. 2015 [place] Nitroglycerin Notes: (Same No Longer as:Nitroquick, Active 2015 [place] Nitrostat) "Do Not Crush" Sublingual tablet Saline Flush 0.9% Notes: (Same No Longer as: BD Active 2015 [place] Posiflush) Saline Flush 0.9% Notes: (Same No Longer as: BD Active 2015 [place] Posiflush) Sodium Chloride 1,000 mL, Inactive 0.154 [...] 0.9% Notes: (Same Inactive as: BD 2015 [place] Posiflush) Nitroglycerin Notes: (Same Inactive as:Nitroquick, 2015 [place] Nitrostat) "Do Not Crush" Sublingual tablet tramadol [...] Zofran Notes: (Same Inactive as: Zofran 2015 [place] ODT) Acetaminophen 325 Notes: (Same Inactive MG / Hydrocodone as: [place] 2016 [place] and Bitartrate 5 MG 325/5) Do not Oral Tablet [[place] exceed 4gm/day 5/325] of acetaminophen. Flagyl Notes: (Same Inactive as: Flagyl) 2015 [place] Take with food/ avoid alcohol predniSONE 20 [...] (Same Inactive MG/ML / as: Duoneb) 2015 [place] Ipratropium [place] 0.167 MG/ML Inhalant Solution [DuoNeb] Symbicort 160/4.5 2 puff, Active inhalation aerosol INHALATION, 2015 [place] with adapter BID, # 1 ea, 1 Refill(s) predniSONE 10 mg See Special Active oral tablet Instructions, 2015 [facility] PO, Daily, 6 day regimen: Day [...] 1 Active Oral Tablet tab, PO, 2015 [facility] Daily, 0 Refill(s) atorvastatin Notes: (Same No Longer as: Lipitor) Active 2015 [facility] Solu-Medrol Notes: (Same Inactive as:Solu-MEDROL 2015 [facility] , A-Methapred) 24 HR Metoprolol Notes: (Same No Longer Tartrate 25 MG as: Toprol XL) Active 2015 [place] [facility] Extended Release Do Not Crush Tablet [Toprol] clopidogrel Notes: (Same No Longer As: Plavix) Active 2015 [facility] Protonix Notes: Tablet No Longer should not be Active 2015 [facility] chewed or crushed. (Same as: Protonix) Aspirin 325 MG Notes: Take No Longer Oral Tablet with food. Active 2015 [facility] Omeprazole 20 mg, Route: Inactive PO, Drug form: 2015 [facility] ECTAB, BID, Dosing Weight 50.92, kg, Start date: 09/04/15 9:00:00, Duration: 30 day, Stop date: 10/03/15 17:00:00 Acetaminophen 300 Notes: Do not No Longer MG / Codeine exceed 4gm/day Active 2015 [place] Phosphate 30 MG of Oral Tablet acetaminophen. [Tylenol with (Same as: Codeine #3] Tylenol with Codeine # 3) NS 1,000 mL 1,000 mL, No Longer Rate: 75 Active 2015 [facility] ml/hr, Infuse over: 13.3 hr, Route: IV, Dosing Weight 50.92 kg, Total Volume: 1,000, Start date: 09/04/15 8:03:00, Duration: 30 day, Stop date: 10/04/15 8:02:00 Albuterol 0.833 Notes: (Same No Longer H MG/ML / as: Duoneb) Active 2015 [facility] Ipratropium [place] 0.167 MG/ML Inhalant Solution methylPREDNISolone Notes: (Same No Longer SODium SUCCinate as:Solu-MEDROL Active 2015 [facility] , A-Methapred) methylPREDNISolone Notes: (Same Inactive [place] SUCCinate as:Solu-MEDROL 2015 [facility] , A-Methapred) Albuterol 0.833 Notes: (Same Inactive MG/ML / as: Duoneb) 2015 [facility] Ipratropium [place] 0.167 MG/ML Inhalant Solution Saline Flush 0.9% Notes: (Same No Longer as: BD Active 2015 [facility] Posiflush) atorvastatin Notes: (Same Inactive as: Lipitor) 2014 [facility] metoprolol 12.5 mg = 0.5 Active tartrate 25 mg tab, PO, BID, 2014 [place] [facility] oral tablet # 60 tab, 0 Refill(s) clopidogrel 75 mg 75 mg = 1 tab, Active oral tablet PO, Daily, # 2014 [facility] 30 tab, 1 Refill(s) atorvastatin 40 mg 80 mg = 2 tab, Active oral tablet PO, Bedtime, # 2015 [facility] 60 tab, 1 Refill(s) 200 ACTUAT 90 microgram = Active Albuterol 0.09 1 puff, 2014 [facility] MG/ACTUAT Metered INHALATION, Dose Inhaler Q4H, PRN for wheezing, # 1 ea, 0 Refill(s) omeprazole 20 mg 20 mg = 1 tab, Active oral enteric PO, BID, # 60 2014 [facility] coated tablet tab, 1 Refill(s) metoprolol Notes: (Same Inactive tartrate as: Lopressor) 2014 [facility] t clopidogrel Notes: (Same Inactive As: Plavix) 2014 [facility] Protonix Notes: Tablet Inactive should not be 2014 [facility] chewed or crushed. (Same as: Protonix) Albuterol 0.833 Notes: (Same No Longer H MG/ML / as: Duoneb) Active 2014 [facility] Ipratropium [place] 0.167 MG/ML Inhalant Solution Sodium Chloride 250 mL, Route: No Longer 0.9% IV IVPB, Start Active 2014 [facility] date: 07/15/15 21:26:00, Duration: 30 day, Stop date: 08/14/15 21:25:00, PRN Line Flush BD Normal Saline Notes: (Same No Longer Flush as: BD Active 2014 [facility] Posiflush) Nitroglycerin Notes: (Same No Longer as:Nitroquick, Active 2014 [facility] Nitrostat) "Do Not Crush" Sublingual tablet Ibuprofen Notes: (Same No Longer as: Motrin) Active 2014 [facility] "Do Not Crush" Give with food. Baclofen Notes: (Same No Longer As: Lioresal) Active 2014 [facility] 200 ACTUAT Notes: No Longer Albuterol 0.09 Al[facility]erol 90 [facility] Metered microgram/inh Dose Inhaler 8gm HFA Same as: Ventnicholas Proventil Sodium Chloride 1,000 mL, No Longer 0.0769 MEQ/ML Rate: 125 Active 2014 [place] Injectable ml/hr, Infuse Solution over: 8 hr, Route: IV, Dosing Weight 50 kg, Total Volume: 1,000, Start date: 07/15/15 20:39:00, Duration: 30 day, Stop date: 08/14/15 20:38:00 Saline Flush 0.9% Notes: (Same Inactive as: BD 2014 [facility] Posiflush) Aspirin 324 mg, Route: Inactive PO, ONCE, 2014 [facility] Dosing Weight 50, kg, Priority: STAT, Start date: 07/15/15 14:15:00, Stop date: 07/15/15 14:15:00 Saline Flush 0.9% Notes: (Same Inactive as: BD 2014 [facility] Posiflush) Sodium Chloride 500 mL, 500 [...] [place] oral tablet PO, TID, PRN 2015 [facility] for dizziness, Center X 20 day, # 60 tab, 0 Refill(s) Acetaminophen Notes: (Same Inactive [place] as: Tylenol) 2015 [facility] Antivert Notes: (Same Inactive [facility] as: Antivert) [address] [place] [address] baclofen 10 mg 10 mg = 1 tab, Active oral tablet PO, TID, PRN 2015 [facility] st Spasms, # 21 tab, 0 Refill(s) Acetaminophen 300 1 tab, PO, Active MG / Codeine Q6H, PRN pain, 2015 [place] Phosphate 60 MG X 5 day, # 20 Oral Tablet tab, 0 [Tylenol with Refill(s) Codeine #4] Acetaminophen 325 Notes: Same as Inactive MG / Hydrocodone [place] 2014 [facility] [address] Bitartrate 7.5 MG 325-7.5mg Do Oral Tablet [[place] not exceed 7.5/325] 4gm/day of acetaminophen. ibuprofen 800 mg Special Active oral tablet Instructions: 2014 [facility] est Take with food Ibuprofen 400 MG Notes: (Same Inactive Oral Tablet as: Motrin) 2014 [facility] "Do Not Crush" Give with food. cyclobenzaprine Notes: (Same Inactive As: Flexeril) 2014 [facility] Readi-Cat 2 Notes: Same as No Longer Readi-Cat 2 Active 2014 [facility] lactulose Notes: (Same No Longer as:Chronulac) Active 2014 [facility] atorvastatin Notes: (Same No Longer As: Lipitor) Active 2014 [facility] Motrin Notes: (Same No Longer as: Motrin) Active 2014 [facility] "Do Not Crush" Take with food. Omeprazole 20 mg, Route: Inactive PO, Drug form: 2014 [facility] ECTAB, BID, Dosing Weight 53, kg, [...] Active oral tablet PO, Daily, # [address] [facility] [address] 30 tab, 0 Refill(s) omeprazole 20 mg 20 mg = 1 tab, Active oral enteric PO, BID, # 60 2014 [facility] coated tablet tab, 0 Refill(s) atorvastatin 40 mg 80 mg = 2 tab, Active oral tablet PO, Bedtime, # 2014 [facility] 90 tab, 0 Refill(s) 200 ACTUAT 1 puff, Active Albuterol 0.09 INHALATION, 2014 [facility] MG/ACTUAT Metered Q4H, PRN for Dose Inhaler wheezing, # 9 gm, 0 Refill(s) Ondansetron Notes: (Same No Longer as: Zofran) Active 2014 MEDICATION WASTE Product Size: 4 mg Product Wasted: ___ mg Docusate Notes: (Same No Longer as: Colace) Active 2014 (Do Not Crush) Acetaminophen Notes: Do not No Longer exceed 4 Active 2014 [facility] gm/day. (Same as: Tylenol) Budesonide 0.25 Notes: (Same No Longer 03/22/ H MG/ML Inhalant As: Pulmicort) Active 2014 Solution [Pulmicort] Albuterol 0.833 Notes: (Same No Longer 03/22/ H MG/ML / as: Duoneb) Active 2014 Ipratropium [place] 0.167 MG/ML Inhalant Solution [DuoNeb] Potassium Chloride Notes: (Same Inactive 1.33 MEQ/ML Oral as: Potassium 2015 [place] Solution Chloride) Sodium Chloride 1,000 mL, Inactive 0.154 MEQ/ML 1,000 ml/hr, 2014 [facility] Injectable Infuse Over: 1 Solution hr, Route: IV, ONCE, Priority: STAT, Dosing Weight 50 kg, Start date: 03/21/15 17:23:00, Duration: 1 doses or times, Stop date: 03/21/15 17:23:00 Sodium Chloride 1,000 mL, Inactive 0.154 MEQ/ML 1,000 ml/hr, 2014 [facility] Injectable Infuse Over: 1 Solution hr, Route: IV, 1,000, Drug form: INJ, ONCE, Priority: STAT, Dosing Weight 50 kg, Start date: 03/21/15 16:12:00, Duration: 1 doses or times, Stop date: 03/21/15 16:12:00 Ondansetron Notes: (Same Inactive as: Zofran) 2014 [facility] MEDICATION WASTE Product Size: 4 mg Product Wasted: ___ mg Morphine Notes: (Same Inactive as:MORPhine 2014 [facility] Sulfate) Aspirin Notes: Take Inactive with food. 2014 Saline Flush 0.9% Notes: (Same No Longer as: BD Active 2014 [facility] Posiflush) tramadol 50 mg = 1 tab, No Longer hydrochloride 50 PO, Q4H, PRN Active 2014 [facility] Oral Tablet pain, # 20 [Ultram] tab, 0 Refill(s) Aspirin Notes: Take Inactive with food. 2014 [facility] Morphine Notes: (Same Inactive as:MORPhine 2014 [facility] Sulfate) Ondansetron Notes: (Same Inactive as: Zofran) 2014 [facility] MEDICATION WASTE Product Size: 4 mg Product Wasted: ___ mg Saline Flush 0.9% Notes: (Same Inactive as: BD 2014 [facility] Posiflush) Famotidine 20 MG 20 mg, 1 tab, Inactive [place] Oral Tablet Route: PO, 2015 Medical [Pepcid] BID, Dosing Center Weight 50, kg, Start date: 03/05/15 9:00:00, Duration: 30 day, Stop date: 04/03/15 17:00:00 MDI Inhaler Spacer Special Active [place] Instructions: 2015 Medical Use as Center directed 200 ACTUAT 1 puff, Active [facility] Albuterol 0.09 INHALATION, 2014 Medic al MG/ACTUAT Metered Q4H, PRN for C enter Dose Inhaler wheezing, # 9 gm, 0 Refill(s) Iohexol Notes: (same Inactive [facility] as:Omnipaque [facility][note 3] Medical 350). Center Famotidine 20 MG 20 mg, 1 tab, Inactive [facility] Oral Tablet Route: PO, 2015 [facility] [Pepcid] ONCE, Dosing [place] Weight 50, kg, Start date: 03/05/15 2:18:00, Stop date: 03/05/15 2:18:00 GI cocktail 30 mL, Route: Inactive [place] PO, Dosing 2014 [facility] Weight 50, kg, Center ONCE, STAT, Start date: 03/05/15 2:16:00, Stop date: 03/05/15 2:16:00 Aspirin Notes: Take Inactive [place] with food. 2015 [facility] remove patch Notes: Remove No Longer old patch Active 2014 [facility] before application of new patch. Plavix Notes: (Same Inactive As: Plavix) 2014 [facility] Omeprazole 20 mg, Route: No Longer PO, Drug form: Active 2014 [facility] ECTAB, BID, Dosing Weight 50, kg, Start date: 02/25/15 9:00:00, Duration: 30 day, Stop date: 03/26/15 17:00:00 Nicoderm C-Q Notes: (Same Inactive as: Habitrol) 2014 [facility] "Remove old patch before application of new patch" Aspirin Notes: Take No Longer with food. Active 2014 [facility] 24 HR Nicotine = 1 patch, Active 0.875 MG/HR TOP, Daily, X 2014 [facility] est Transdermal Patch 14 day, # 14 [Nicoderm C-Q] patch, 0 Refill(s) atorvastatin 20 mg 40 mg = 2 tab, Active oral tablet PO, Bedtime, # 2015 [facility] 60 tab, 0 Refill(s) omeprazole 20 mg 20 mg = 1 tab, Active oral enteric PO, BID, # 30 2014 [facility] coated tablet tab, 0 Refill(s) metoprolol 12.5 mg = 0.5 Active tartrate 25 mg tab, PO, BID, 2014 [facility] oral tablet # 30 tab, 0 Refill(s) cyclobenzaprine 10 10 mg = 1 tab, Active mg oral tablet PO, TID, PRN 2014 [facility], # 30 tab, 0 Refill(s) clopidogrel 75 MG 75 mg = 1 tab, Active Oral Tablet PO, Daily, # 2014 [facility] st [Plavix] 30 tab, 0 Refill(s) Protonix [...] No Longer Flush as: BD Active 2014 [facility] Posiflush) potassium chloride Notes: Infuse Inactive at a rate of 2014 10 mEq/hr. (Same as: KCL) metoprolol Notes: (Same No Longer tartrate as: Lopressor) Active 2014 [facility] cyclobenzaprine Notes: (Same No Longer 02/25/ H As: Flexeril) Active 2014 [facility] Notes: (Same No Longer as:MORPhine Active 2014 [facility] Sulfate) Ondansetron Notes: (Same No Longer as: Zofran) Active 2014 MEDICATION WASTE Product Size: 4 mg Product Wasted: ___ mg Acetaminophen Notes: Do not No Longer exceed 4 Active 2014 [facility] gm/day. (Same as: Tylenol) Aspirin Notes: Take Inactive with food. 2014 [facility] potassium chloride 40 mEq, Route: Inactive 02/24 PO, Drug form: 2014 [facility] ERTAB, ONCE, Dosing Weight 50, kg, Priority: STAT, Start date: 02/24/15 14:49:00, Stop date: 02/24/15 14:49:00 Morphine Notes: (Same Inactive as:MORPhine 2014 [facility] Sulfate) remove patch Notes: Remove Inactive old patch 2014 before application of new patch. Plavix Notes: (Same Inactive As: Plavix) 2014 [facility] atorvastatin Notes: (Same No Longer As: Lipitor) Active 2014 [facility] Pravastatin Notes: (Same Inactive as: Pravachol) 2014 [facility] Protonix Notes: Tablet No Longer should not be Active 2014 [facility] chewed or crushed. (Same as: Protonix) NS 1,000 mL 1,000 mL, No Longer Rate: 100 Active 2014 [facility] ml/hr, Infuse over: 10 hr, Route: IV, Dosing Weight 51.051 kg, Total Volume: 1,000, Start date: 02/17/15 16:51:00, Duration: 30 day, Stop date: 03/19/15 16:50:00 Sodium Chloride IV, 0 ml/hr, Inactive 0.9% IV ONCE, Start 2014 [facility] date: 02/17/15 16:45:00, 500 ml metoprolol 12.5 mg = 0.5 Active tartrate 25 mg tab, PO, BID, 2014 [facility] oral tablet 0 Refill(s) naproxen 500 mg 500 mg = 1 Inactive oral tablet tab, PO, BID, 2014 [facility] PRN Pain, # 30 tab, 0 Refill(s) Aspirin Low Dose 0 Refill(s) Inactive 81 mg oral tablet 2014 [facility] est cyclobenzaprine 10 10 mg = 1 tab, Active mg oral tablet PO, TID, PRN 2014 [facility], # 30 tab, 0 Refill(s) atorvastatin 20 mg 20 mg = 1 tab, Inactive 02/17 oral tablet PO, Bedtime, # 2015 [facility] 30 tab, 0 Refill(s) omeprazole 20 mg 20 mg = 1 tab, Active oral enteric PO, BID, # 30 2014 [facility] coated tablet tab, 0 Refill(s) 24 HR Nicotine = 1 patch, Active 0.875 MG/HR TOP, Daily, X 2015 [facility] est Transdermal Patch 14 day, # 14 [Nicoderm C-Q] patch, 0 Refill(s) atorvastatin 20 mg 40 mg = 2 tab, Active oral tablet PO, Bedtime, # 2015 [facility] 60 tab, 0 Refill(s) Nicotine Notes: (Same No Longer as: Habitrol) Active 2014 [facility] "Remove old patch before application of new patch" Aspirin 81 MG Notes: Do not Inactive Enteric Coated crush or chew. [facility] Tablet (Same As: Ecotrin) Sodium Chloride 1,000 mL, Inactive 0.154 MEQ/ML Rate: 125 2014 [facility] Injectable ml/hr, Infuse Solution over: 8 hr, Route: IV, Dosing Weight 51.051 kg, Total Volume: 1,000, Start date: 02/17/15 8:38:00, Duration: 30 day, Stop date: 03/19/15 8:37:00 Aspirin 81 MG 81 mg = 1 tab, No Longer 02/17/ M H Enteric Coated PO, Daily, # Active 2014 [facility] Tablet 90 tab, 3 Refill(s) clopidogrel 75 MG 75 mg = 1 tab, Active Oral Tablet PO, Daily, # [address] [facility] st [Plavix] 30 tab, 0 Refill(s) Enoxaparin Notes: Nurse No Longer to ensure Active 2014 [facility] documentation of patient education per anticoagulatio n policy. (Same as: Lovenox) Jason Krause Notes: (Same No Longer 02/17/ M H As: Rosannasalon Active 2014 [facility] Nelida) "Do Not Crush" Acetaminophen Notes: Do not No Longer exceed 4 Active 2014 [facility] gm/day. (Same as: Tylenol) Diphenhydramine Notes: (Same No Longer 02/17/ H as: Benadryl) Active 2014 [facility] Dextromethorphan Notes: No Longer Hydrobromide 2 (dextromethorp Active 2014 [facility] MG/ML / hernández-guaifenesi Guaifenesin 20 n 10-100mg/5ml MG/ML Oral 10 ml oral Solution SOLN ud) (Same as: Robitussin DM) Simethicone Notes: (Same No Longer as: Mylicon) Active 2014 [facility] Bisacodyl Notes: (Same No Longer As: Dulcolax, Active 2014 [facility] Bisco-Lax) Ondansetron Notes: (Same No Longer as: Zofran) Active 2014 [facility] MEDICATION WASTE Product Size: 4 mg Product Wasted: ___ mg Nitroglycerin 0.02 Notes: 1 gram No Longer 02/17 MG/MG Topical is Active 2014 [facility] Ointment approximately 1 inch of nitroglycerin ointment (20 mg NTG per gram) (Same as:Nitro-Bid) Nitroglycerin Notes: (Same No Longer as:Nitroquick, Active 2014 [facility] Nitrostat) "Do Not Crush" Sublingual tablet Acetaminophen Notes: Do not No Longer exceed 4 Active 2014 [facility] gm/day. (Same as: Tylenol) Acetaminophen 325 Notes: (Same No Longer MG / Hydrocodone as: [place] Active 2014 [facility] Bitartrate 5 MG 325/5) Do not Oral Tablet exceed 4gm/day of acetaminophen. Morphine Notes: (Same No Longer as:MORPhine Active 2014 [facility] Sulfate) Sodium Chloride 1,000 mL, No Longer 0.154 MEQ/ML Rate: 125 Active 2014 [facility] Injectable ml/hr, Infuse Solution over: 8 hr, Route: IV, Dosing Weight 52.273 kg, Total Volume: 1,000, Start date: 02/16/15 21:06:00, Duration: 24 hr, Stop date: 02/17/15 21:05:00 normal saline 0.9% 500 mL, Rate: Inactive IV 500 mL 500 ml/hr, 2014 [facility] Infuse over: 1 hr, Route: IV, Dosing Weight 52.273 kg, Total Volume: 500, Start date: 02/16/15 20:25:00, Duration: 1 doses or times, Stop date: 02/16/15 21:24:00 Sodium Chloride 250 mL, Route: No Longer 0.9% IV IVPB, Start Active 2014 [facility] date: 02/16/15 19:52:00, Duration: 30 day, Stop date: 03/18/15 19:51:00, PRN Line Flush BD Normal Saline Notes: (Same No Longer Flush as: BD Active 2014 [facility] Posiflush) Morphine Notes: (Same Inactive as:MORPhine 2014 [facility] Sulfate) Nitroglycerin Notes: (Same Inactive as:Nitroquick, 2014 [facility] Nitrostat) "Do Not Crush" Sublingual tablet Aspirin Notes: (Do Not Inactive Crush) Do not 2014 [facility] crush or chew. Ondansetron Notes: (Same Inactive as: Zofran) 2013 [facility] Morphine Notes: (Same Inactive as:MORPhine 2013 [facility] Sulfate) Aspirin / Calcium Notes: Take Inactive H Carbonate with food. 2013 [facility] Aspirin 81 MG 81 mg = 1 tab, Active [facility] Enteric Coated PO, Daily, # 2014 [facility]i tony Tablet 90 tab, 0 Center Refill(s) metoprol[facility] 12.5 [facility] tab, PO, BID, 2013 Med ical oral tablet # 90 tab, 0 Center Refill(s) clopidogrel 75 mg 75 mg = 1 tab, Active [facility] oral tablet PO, Daily, # 2014 [facility] 90 tab, 0 Center Refill(s) atorvastatin 20 mg 20 mg = 1 tab, Active [facility] oral tablet PO, Bedtime, # 2014 Medic al 90 tab, 0 Center Refill(s) metoprolol Notes: (Same [place]active [place] tartrate as: Lopressor) 2013 [facility] 12.5mg=1/4 X Center 50 mg tab. Lovenox Notes: (Same Inactive [facility] as: Lovenox) 2013 [facility] clopidogrel Notes: (Same Inactive [place] as As: Plavix) 2013 [facility] Aspirin / Calcium Notes: Do not Inactive [facility] Carbonate crush or chew. 2013 [facility] (Same As: Center Ecotrin) Saline Flush 0.9% Notes: (Same Inactive [place] as: BD 2013 [facility] Posiflush) Center Adenosine 41.6178 mg, Inactive [place] Route: IVP, 2014 [facility] ONCE, Dosing Center Weight 49.545, kg, Priority: Routine, Start date: 12/16/13 22:42:00, Stop date: 12/16/13 22:42:00 atorvastatin Notes: (Same No Longer [place] As: Lipitor) Active 2013 [facility] Saline Flush 0.9% Notes: (Same No Longer [place] as: BD Active 2013 [facility] Posiflush) Center Nitroglycerin Notes: (Same No Longer [facility] as:Nitroquick, Active 2013 [facility] Nitrostat) "Do Center Not Crush" Sublingual tablet atorvastatin 20 mg 20 mg = 1 tab, No Longer 11/28 [place] oral tablet PO, Bedtime, # Active 2013 [...] Stop date: 12/16/13 18:43:00 Iohexol Special Inactive [facility] Instructions: 2014 Medical Dose = Center [...] Aspirin / Calcium Notes: (Do Not Inactive [facility] Carbonate Crush) Do not 2013 Medical crush or chew. Center Aspirin 81 MG 81 mg, 1 tab, No Longer [place] Chewable Tablet Route: PO, Active 2013 Medic al Drug form: [place] CHEWTAB, Daily, Dosing Weight 63.636, kg, Start [...] MG 75 mg = 1 tab, Active [facility] Oral Tablet PO, Daily, # 2014 Medical [Plavix] 30 tab, 0 Center Refill(s) atorvastatin 20 mg 20 mg = 1 tab, Active [facility] oral tablet PO, Bedtime, # 2014 Medic al 30 tab, 0 Center Refill(s) Aspirin 81 MG 81 mg = 1 tab, Active [facility] Chewable Tablet PO, Daily, # 2014 Med ical 60 tab, 0 Center Refill(s) Plavix 75 mg, 1 tab, Inactive [facility] Route: PO, 2013 Medical Drug form: Center TAB, Daily, Dosing Weight 63.636, kg, Start date: 11/08/13 9:00:00, Duration: 30 day, Stop date: 12/07/13 9:00:00(Same As: Plavix) Saline Flush 0.9% 5 ml, Route: [facility] Medical Form: INJ, [place] Dosing Weight 63.636, kg, Q12H, Start date: 11/08/13 9:00:00, Duration: 30 day, Stop date: 12/07/13 21:00:00(Same as: BD Posiflush) Lovenox 40 mg, 0.4 mL, Inactive [facility] Route: SUB-Q, 2013 Medical Drug form: [place] INJ, Q24H, Dosing Weight 63.636, kg, Start date: 11/08/13 9:00:00, Duration: 30 day, Stop date: 12/07/13 9:00:00(Same as: Lovenox) Tylenol 650 mg, 2 tab, Inactive [facility] Route: PO, 2013 Medical Drug form: [place] TAB, Q4H, Dosing Weight 63.636, kg, PRN Pain, Start date: 11/08/13 8:15:00, Duration: 30 day, Stop date: 12/08/13 8:14:00Do not exceed 4 gm/day. (Same as: Tylenol) Saline Flush 0.9% 5 ml, Route: Inactive [facility] Medical Form: INJ, [place] Dosing Weight 63.636, kg, PRN, PRN Line [...] Aspirin 81 MG 324 mg, Route: Inactive [facility] Chewable Tablet PO, Drug form: 2013 [...] 2 deltoid Medical vaccine Center, Jacek Solo [facility], [facility] Results Order Name Results Value Reference Date Interpretation Comments Sandra rce Range URINE AND UA Color Ltyellow 01/19 STOOL /2016 [facility] URINE AND UA <=1.0 0.1 - 1.0 01/19 STOOL Urobilinogen mg/dL /2016 URINE AND UA Ketones Negative Negative 01/19 [...] Negative Negative 01/19 STOOL (01/19/17 2:21 PM) [facility] ast URINE AND UA RBC 1 0 - 2 01/19 STOOL /2016 [facility] URINE AND UA WBC 1 0 - 5 01/19 STOOL /2016 [facility] URINE AND UA Sq Epi Few /LPF Few /LPF 01/19 STOOL [facility] URINE AND UA pH 7.0 5.0 - 8.0 01/19 STOOL /2016 [facility] URINE AND UA Spec Grav 1.008 <=1.030 01/19 STOOL /2016 [facility] URINE AND UA Turbidity Clear Clear 01/19 STOOL (01/19/17 2:21 PM) [facility] ast CARDIAC CK MB 3.0 0.5 - 3.6 01/19 ENZYMES /2016 [facility] CARDIAC Troponin-I <0.02 0.00 - 01/19 EN[facility]YMES 0.40 [facility] CHEM PANEL Lipase Lvl 231 73 - 393 01/19 [facility] CHEM PANEL B/C Ratio 9 6 - 25 01/19 [facility] CHEM PANEL AGAP 8.4 10.0 - 01/19 MH 20.0 /2017 [facility] CHEM PANEL A/G Ratio 1.0 0.7 - 1.6 01/19 [facility] CHEM PANEL Globulin 3.6 2.7 - 4.2 [...] PANEL Total 7.2 6.4 - 8.4 01/19 [facility] CHEM PANEL Bili Total 1.1 0.2 - 1.3 01/19 [facility] CHEM PANEL Alk Phos 111 39 - 136 01/19 [facility] CHEM PANEL AST 31 0 - 37 01/19 [facility] CHEM PANEL eGFR 90 01/19 Result Comment: The [facility] eGFR is calculated using the CKD-EPI formula. [...] Glucose Lvl 73 70 - 99 01/19 [facility] CHEM PANEL Amylase Lvl 75 25 - 115 01/19 [facility] HEMATOLOGY PTT 31.3 22.9 - 01/19 MH 35.8 /2016 [facility] HEMATOLOGY MPV 8.5 7.4 - 10.4 01/19 [facility] HEMATOLOGY Hct 42.0 36.0 - 01/19 MH 48.0 [facility] HEMATOLOGY RBC 4.92 4.20 - 01/19 MH 5.40 /2017 [facility] HEMATOLOGY Hgb 14.4 12.0 - 01/19 MH 16.0 [facility] HEMATOLOGY RDW 14.2 11.5 - 01/19 MH 14.5 [facility] HEMATOLOGY Platelet 236 133 - 450 01/19 [facility] HEMATOLOGY MCHC 34.2 32.0 - 01/19 MH 36.0 /2016 [facility] HEMATOLOGY MCH 29.2 27.0 - 01/19 MH 31.0 [facility] HEMATOLOGY MCV 85.5 80.0 - 01/19 MH 98.0 [facility] HEMATOLOGY WBC 7.7 3.7 - 10.4 01/19 [facility] HEMATOLOGY PT 13.7 12.0 - 01/19 MH 14.7 [facility] HEMATOLOGY INR 1.03 0.85 - 01/19 MH 1.17 /2016 [facility] HEMATOLOG[facility] Eosinophils 0.3 0.0 - 0.5 05/ MH # /2017 [facility] HEMATOLOGY Segs 68.3 45.0 - 01/19 MH 75.0 /2017 [facility] HEMATOLOGY Monocytes # 0.6 0.0 - 0.8 01/19 MH /2016 [facility] HEMATOLOGY Segs-Bands # 5.3 1.5 - 8.1 01/19 MH /2016 [facility] HEMATOLOGY Eosinophils 4.5 0.0 - 4.0 01/19 MH /2016 [facility] HEMATOLOGY Basophils 0.6 0.0 - 1.0 01/19 MH /2016 [facility] HEMATOLOGY Lymphocytes 1.4 1.0 - 5.5 05/ MH # /2017 [facility] HEMATOLOGY Monocytes 7.8 2.0 - 12.0 01/19 MH /2016 [facility] HEMATOLOGY Lymphocytes 18.8 20.0 - [...] 01/17 MH [place] STOOL (01/16/17 7:23 PM) [facility] URINE AND UA Nitrite Negative Negative 01/17 [facility] (01/16/17 7:23 PM) [facility] URINE AND UA Leuk Est Negative Negative 01/17 [facility] (01/16/17 7:23 PM) [facility] URINE AND UA 1.0 0.1 - 1.0 01/17 [facility] Urobilinogen /2016 [facility] URINE AND UA Blood Negative Negative 01/17 [facility] (01/16/17 7:23 PM) [facility] URINE AND UA Turbidity Slight Cloudy Clear 01/17 [facility] (01/16/17 7:23 PM) [facility] URINE AND UA Spec Grav 1.007 <=1.030 01/17 [facility] URINE AND UA pH 6.0 5.0 - 8.0 01/17 [facility] URINE AND UA Protein Negative Negative 01/17 [facility] (01/16/17 7:23 PM) [facility] URINE AND UA Color Yellow Yellow 01/17 [facility] *NA* /2016 [facility] (01/16/17 7:23 PM) [place] URINE AND UA RBC 0-2 /HPF 0 - 2 01/17 [facility] URINE AND UA Bacteria Few /HPF None Seen 01/17 [facility] s STOOL /HPF [facility] URINE AND UA WBC 0-2 /HPF None Seen 01/17 [facility] /HPF /2016 [facility] URINE AND UA Sq Epi Few /LPF Few /LPF 01/17 [facility] CARDIAC Troponin-I <0.02 0.00 - 01/16 [facility] ENZYMES 0.40 [facility] CARDIAC CK MB 2.0 0.5 - 3.6 01/16 [facility] ENZYMES [facility] CARDIAC Total CK 208 12 - 191 01/16 [facility] ENZYMES [facility] CARDIAC CK MB Index 1.0 0.0 - 2.5 01/16 [facility] ENZYMES [address] [place] [address] CHEM PANEL eGFR 73 01/16 Result Comment: [...] PANEL CO2 29 24 - 32 01/[address] CHEM PANEL Sodium Lvl 142 135 - 145 01/[address] CHEM PANEL Glucose Lvl 105 70 - 99 01/[address] CHEM PANEL BUN 15 7 - 22 01/[address] CHEM PANEL AGAP 11.0 10.0 - 01/16 [facility] 20.0 [facility] CHEM PANEL B/C Ratio 16 6 - 25 01/[address] CHEM PANEL Calcium Lvl 9.4 8.5 - 10.5 01/16 [facility] CHEM PANEL Creatinine 0.94 0.50 - 01/[facility] CHEM PANEL Chloride Lvl 106 95 - 109 01/16 [facility] 2016 [facility] CHEM PANEL Potassium 4.0 3.5 - 5.1 01/[facility] CHEM PANEL Albumin Lvl 3.6 3.5 - 5.0 01/16 [facility] CHEM PANEL ALT 24 0 - 65 01/[address] CHEM PANEL Bili Total 0.6 0.2 - 1.3 01/[address] CHEM PANEL Alk Phos 107 39 - 136 01/[address] CHEM PANEL AST 29 0 - 37 01/[address] CHEM PANEL A/G Ratio 0.9 0.7 - 1.6 01/[address] CHEM PANEL Globulin 3.9 2.7 - 4.2 01/16 MH [facility] CHEM PANEL Total 7.5 6.4 - 8.4 01/16 Protein [facility] HEMATOLOGY Hgb 14.6 12.0 - 01/16 [place] 16.0 [facility] HEMATOLOGY Hct 42.7 36.0 - 01/16 [place] 48.0 [facility] HEMATOLOGY MCHC 34.2 32.0 - 01/16 [place] 36.0 [facility] HEMATOLOGY MCV 85.3 80.0 - 01/16 [place] 98.0 [facility] HEMATOLOGY MCH 29.2 27.0 - 01/16 [place] 31.0 [facility] HEMATOLOGY RDW 14.3 11.5 - 01/16 [place] 14.5 [facility] HEMATOLOGY Platelet 227 133 - 450 01/16 [facility] HEMATOLOGY MPV 8.0 7.4 - 10.4 01/16 [facility] HEMATOLOGY WBC 6.6 3.7 - 10.4 01/16 [facility] HEMATOLOGY RBC 5.00 4.20 - 01/16 [place] 5.40 [facility] HEMATOLOGY Basophils 0.8 0.0 - 1.0 01/16 [facility] HEMATOLOGY Segs-Bands # 4.0 1.5 - 8.1 01/16 [facility] HEMATOLOGY Monocytes # 0.5 0.0 - 0.8 01/16 [place] [facility] HEMATOLOGY Basophils # 0.1 0.0 - 0.2 01/16 s [facility] HEMATOLOGY Lymphocytes 1.8 1.0 - 5.5 01/16 [place] [facility] HEMATOLOGY Eosinophils 0.2 0.0 - 0.5 01/16 [place] [facility] HEMATOLOGY Segs 60.6 45.0 - 01/16 [place] 75.0 [facility] HEMATOLOGY Monocytes 8.3 2.0 - 12.0 01/16 [facility] HEMATOLOGY Eosinophils 3.5 0.0 - 4.0 01/16 [place] [facility] HEMATOLOGY Lymphocytes 26.8 20.0 - 01/16 [place] 40.0 [facility] URINE AND UA Ketones Negative Negative 11/29 STOOL *NA* /2016 [place] (11/28/16 9:18 PM) URINE AND UA Blood Negative Negative 11/29 [facility] (11/28/16 9:18 PM) [place] URINE AND UA 1.0 0.1 - 1.0 11/29 [facility] Urobilinogen /2016 [facility] URINE AND UA Nitrite Negative Negative 11/29 [facility] (11/28/16 9:18 PM) [place] URINE AND UA WBC 6-10 /HPF None Seen 11/29 [facility] /HPF /2016 [facility] URINE AND UA RBC 0-2 /HPF 0 - 2 11/29 STOOL /2016 [facility] URINE AND UA Bili Negative Negative 11/29 [facility]OOL *NA* /2016 [facility] (11/28/16 9:18 PM) URINE AND UA Bacteria Occasional None Seen 11/29 STOOL /HPF /HPF /2016 [facility] URINE AND UA Sq Epi Occasional Few /LPF 11/29 Result STOOL /LPF /2016 Comment: [facility] microscopic exam performed on UNSPUN Urine due to specimen less than 1ml. URINE AND UA Leuk Est Moderate Negative 11/29 STOOL *ABN* [facility] (11/28/16 9:18 PM) URINE AND UA Color Yellow Yellow 11/29 STOOL *NA* [facility] (11/28/16 9:18 PM) URINE AND UA pH 6.0 5.0 - 8.0 11/29 STOOL [facility] URINE AND UA Protein Negative Negative 11/29 STO[facility] (11/28/16 9:18 PM) [place] URINE AND UA Glucose Negative Negative 11/29 STOOL (11/28/16 9:18 PM) [place] URINE AND UA Spec Grav <=1.005 <=1.030 11/29 STOOL *NA* [facility] (11/28/16 9:18 PM) URINE AND UA Turbidity Clear Clear 11/29 STO[facility] (11/28/16 9:18 PM) /2016 [place] CARDIAC Troponin-I <0.02 0.00 - 11/29 ENZYMES 0.40 [facility] CARDIAC CK MB 1.3 0.5 - 3.6 11/29 [facility]YMES [facility] CARDIAC Total CK 89 12 - 191 11/29 EN[facility]YMES [facility] CARDIAC CK-MB INDEX 1.5 0.0 - 2.5 11/29 [facility]YMES [facility] CHEM PANEL Globulin 3.9 2.7 - 4.2 11/29 [facility] CHEM PANEL eGFR 50 / Result Comment: The [facility] eGFR is calculated using the CKD-EPI formula. [...] A/G Ratio 0.9 0.7 - 1.6 11/29 [facility] CHEM PANEL ALANINE 24 0 - 65 / MH AMINOTRANSFE [facility] RASE CHEM PANEL Albumin Lvl 3.7 3.5 - 5.0 11/29 [facility] CHEM PANEL Alk Phos 89 39 - 136 11/29 [facility] CHEM PANEL Glucose Lvl 112 70 - 99 11/29 [facility] CHEM PANEL BUN 10 7 - 22 11/29 [facility] CHEM PANEL Creatinine 1.28 0.50 - 04/ MH Lvl 1.40 [facility] CHEM PANEL CO2 30 24 - 32 / [facility] CHEM PANEL Chloride Lvl 103 95 - 109 / [facility] CHEM PANEL Calcium Lvl 9.5 8.5 - 10.5 11/29 [facility] CHEM PANEL AGAP 9.5 10.0 - 04/ MH 20.0 /2016 [facility] CHEM PANEL B/C Ratio 8 6 - 25 / [facility] CHEM PANEL Bili Total 0.7 0.2 - 1.3 11/29 [facility] CHEM PANEL Sodium Lvl 139 135 - 145 / [facility] CHEM PANEL Potassium 3.5 3.5 - 5.1 04/03 MH Lvl /2017 [facility] CHEM PANEL Total 7.6 6.4 - 8.4 04/ MH Protein /2016 [facility] CHEM PANEL ASPARTATE 14 0 - 37 04/ MH TRANSAMINASE /2016 [facility] HEMATOLOGY MCHC 33.4 32.0 - 04/ MH 36.0 /2016 [facility] HEMATOLOGY Platelet 261 133 - 450 04/ /2016 [facility] HEMATOLOGY RDW 14.7 11.5 - 04/ MH 14.5 /2016 [facility] HEMATOLOGY MPV 8.1 7.4 - 10.4 04/ MH /2016 [facility] HEMATOLOGY RBC X 10x6 5.34 4.20 - 04/ MH 5.40 /2016 [facility] HEMATOLOGY Hgb 15.5 12.0 - 04/ MH 16.0 /2016 [facility] HEMATOLOGY MCV 87.0 80.0 - 04/ MH 98.0 /2016 [facility] HEMATOLOGY Hct 46.4 36.0 - 11/29 MH 48.0 /2016 [facility] HEMATOLOGY MCH 29.1 27.0 - 04/ MH 31.0 /2016 [facility] HEMATOLOGY WBC X 10x3 8.0 3.7 - 10.4 04/ MH /2016 [facility] HEMATOLOGY Basophils # 0.1 0.0 - 0.2 04/ MH /2016 [facility] HEMATOLOGY Lymphocytes 2.0 1.0 - 5.5 04/ MH # /2016 [facility] HEMATOLOGY Segs-Bands # 5.1 1.5 - 8.1 04/ /2016 [facility] HEMATOLOGY Eosinophils 0.2 0.0 - 0.5 04/ MH # /2016 [facility] HEMATOLOGY Monocytes # 0.8 0.0 - 0.8 04/ /2016 [facility] HEMATOLOGY Segs 63.2 45.0 - 04/ MH 75.0 /2016 [facility] HEMATOLOGY Lymphocytes 24.3 20.0 - 04/ MH 40.0 /2016 [facility] HEMATOLOGY Eosinophils 2.1 0.0 - 4.0 / /2016 [facility] HEMATOLOGY Monocytes 9.6 2.0 - 12.0 04/ /2016 [facility] HEMATOLOGY Basophils 0.8 0.0 - 1.0 04/ /2016 [facility] VIRAL - Influ B Negative Negative / SEROLOGY (11/28/16 8:10 PM) /[place] VIRAL - Influ A Negative Negative 11/29 SEROLOGY (11/28/16 8:10 PM) [facility] nd CARDIAC CK-MB INDEX 1.3 0.0 - 2.5 11/07 ENZYMES /2016 [facility] CARDIAC Troponin-I <0.02 0.00 - 11/07 EN[facility]YMES 0.40 [facility] CARDIAC CK MB 1.9 0.5 - 3.6 11/07 EN[facility]YMES [facility] CARDIAC Total CK 144 12 - 191 11/07 ENZYMES [facility] CHEM PANEL eGFR 77 11/07 Result Comment: The [facility] eGFR is calculated using the CKD-EPI formula. [...] PANEL ASPARTATE 17 0 - 37 11/07 TRANSAMINASE [facility] CHEM PANEL Total 6.8 6.4 - 8.4 11/07 Protein [facility] CHEM PANEL Calcium Lvl 8.5 8.5 - 10.5 11/07 [facility] CHEM PANEL Bili Total 0.8 0.2 - 1.3 11/07 [facility] CHEM PANEL Chloride Lvl 106 95 - 109 11/07 [facility] CHEM PANEL CO2 31 24 - 32 11/07 [facility] CHEM PANEL Potassium 3.1 3.5 - 5.1 11/07 Lvl [facility] CHEM PANEL Creatinine 0.90 0.50 - 11/07 MH Lvl 1.40 [facility] CHEM PANEL Sodium Lvl 144 135 - 145 11/07 [facility] CHEM PANEL BUN 12 7 - 22 11/07 [facility] CHEM PANEL Glucose Lvl 96 70 - 99 03/ [facility] CHEM PANEL Albumin Lvl 3.3 3.5 - 5.0 11/07 [facility] CHEM PANEL Alk Phos 76 39 - 136 11/07 [facility] CHEM PANEL ALANINE 20 0 - 65 03/ MH AMINOTRANS [facility] RASE CHEM PANEL Globulin 3.5 2.7 - 4.2 11/07 [facility] CHEM PANEL A/G Ratio 0.9 0.7 - 1.6 03/ [facility] CHEM PANEL AGAP 10.1 10.0 - 03/ MH 20.0 [facility] CHEM PANEL B/C Ratio 13 6 - 25 11/07 [facility] HEMATOLOGY Eosinophils 2.8 0.0 - 4.0 11/07 [facility] HEMATOLOGY Eosinophils 0.2 0.0 - 0.5 11/07 MH /2016 [facility] HEMATOLOGY Basophils # 0.1 0.0 - 0.2 11/07 [facility] HEMATOLOGY Monocytes # 0.7 0.0 - 0.8 11/07 [facility] HEMATOLOGY Basophils 0.8 0.0 - 1.0 11/07 [facility] HEMATOLOGY Segs-Bands # 4.5 1.5 - 8.1 11/07 [facility] HEMATOLOGY Lymphocytes 2.2 1.0 - 5.5 11/07 MH /2016 [facility] HEMATOLOGY Segs 58.5 45.0 - 11/07 MH 75.0 [facility] HEMATOLOGY Lymphocytes 28.8 20.0 - 03 MH 40.0 [facility] HEMATOLOGY Monocytes 9.1 2.0 - 12.0 11/07 [facility] HEMATOLOGY Platelet 196 133 - 450 11/07 [facility] HEMATOLOGY RDW 14.3 11.5 - 11/07 MH 14. [facility] HEMATOLOGY MPV 8.1 7.4 - 10.4 11/07 [facility] HEMATOLOGY WBC X 10x3 7.7 3.7 - 10.4 11/07 [facility] HEMATOLOGY Hgb 13.1 12.0 - 11/07 MH 16.0 [facility] HEMATOLOGY RBC X 10x6 4.48 4.20 - 03 MH 5.40 [facility] HEMATOLOGY MCH 29.3 27.0 - 03 MH 31.0 /2016 [facility] HEMATOLOGY Hct 39.1 36.0 - 03 MH 48.0 /2016 [facility] HEMATOLOGY MCV 87.3 80.0 - 11/07 98.0 /2016 [facility] HEMATOLOGY MCHC 33.6 32.0 - 03 MH 36.0 /2016 [facility] DRUG U Benzodia Negative Negative 10/11 [place] [...] Center DRUG U Cocaine Positive Negative 10/11 [facility] SCREEN Scr *ABN* /2016 Medical (10/11/16 5:24 AM) Center DRUG UDS Note See Note 10/11 [place] SCREEN (10/11/16 5:24 AM) /2016 [facility] DRUG U Opiate Scr Negative Negative 10/11 [place] SCREEN *NA* /2016 [facility] (10/11/16 5:24 AM) Center DRUG U Phencyc Negative Negative 10/11 [facility] SCREEN Scr *NA* /2016 [facility] (10/11/16 5:24 AM) Center CARDIAC Troponin-I <0.02 0.00 - 10/11 [place] ENZYMES 0.40 [facility] HEMATOLOGY Eosinophils 0.4 0.0 - 0.5 10/11 [place] # /2016 [facility] HEMATOLOGY Basophils # 0.1 0.0 - 0.2 10/11 [place] [facility] HEMATOLOGY Eosinophils 6.3 0.0 - 4.0 10/11 [place] [facility] HEMATOLOGY Basophils 1.0 0.0 - 1.0 10/11 [facility] HEMATOLOGY Segs-Bands # 2.7 1.5 - 8.1 10/11 [place] [facility] HEMATOLOGY Lymphocytes 2.1 1.0 - 5.5 10/11 [place] # [facility] HEMATOLOGY Monocytes # 0.6 0.0 - 0.8 10/11 [place] /2016 [facility] HEMATOLOGY Lymphocytes 36.3 20.0 - 02 [place] 40.0 /2016 [facility] HEMATOLOGY Segs 46.0 45.0 - 10/11 [place] 75.0 /2016 [facility] HEMATOLOGY Monocytes 10.4 2.0 - 12.0 10/11 [facility] HEMATOLOGY MPV 8.7 7.4 - 10.4 10/11 [facility] HEMATOLOGY Platelet 194 133 - 450 10/11 [facility] HEMATOLOGY MCH 29.3 27.0 - 02 [place] 31.0 /2016 [facility] HEMATOLOGY MCV 87.2 80.0 - 10/11 [place] 98.0 [facility] HEMATOLOGY RDW 14.4 11.5 - 10/11 [place] 14.5 [facility] HEMATOLOGY MCHC 33.6 32.0 - 10/11 [place] 36.0 /2016 [facility] HEMATOLOGY Hgb 13.1 12.0 - 10/11 [place] 16.0 [facility] HEMATOLOGY RBC 4.45 4.20 - 10/11 [place] 5.40 [facility] HEMATOLOGY Hct 38.8 36.0 - 10/11 [place] 48.0 [facility] HEMATOLOGY WBC 5.8 3.7 - 10.4 10/11 [facility] LIPIDS CHD Risk 2.84 3.90 - 10/11 [place] 5.80 [facility] LIPIDS VLDL 14 10/11 [facility] LIPIDS LDL 87 <=99 mg/dL 10/11 [facility] (Calculated) [facility] LIPIDS Trig 71 <=149 10/11 mg/dL [facility] LIPIDS Chol 156 <=199 10/11 [facility] mg/dL [facility] LIPIDS HDL 55 >=61 mg/dL 10/11 [facility] CARDIAC Troponin-I <0.02 0.00 - 10/11 [facility] ENZYMES 0. [facility] CARDIAC Troponin-I <0.02 0.00 - 10/10 [facility] ENZYMES 0. [facility] CHEM PANEL eGFR 92 10/10 Result [...] PANEL BUN 8 7 - 22 10/10 [facility] CHEM PANEL Creatinine 0.78 0.50 - 10/10 [facility] Lvl 1.40 [facility] CHEM PANEL Glucose Lvl 108 70 - 99 10/10 [facility] CHEM PANEL Potassium 3.2 3.5 - 5.1 10/10 [facility] CHEM PANEL Calcium Lvl 9.3 8.5 - 10.5 10/10 [facility] CHEM PANEL CO2 31 24 - 32 10/10 [facility] CHEM PANEL Sodium Lvl 143 135 - 145 10/10 [facility] CHEM PANEL Chloride Lvl 108 95 - 109 10/10 [facility] CHEM PANEL AGAP 7.2 10.0 - 10/10 [place] 20.0 [facility] HEMATOLOGY MCHC 33.8 32.0 - 10/10 [place] 36.0 [facility] HEMATOLOGY RDW 14.2 11.5 - 10/10 [place] 14.5 [facility] HEMATOLOGY MCH 29.4 27.0 - 02 [place] 31.0 [facility] HEMATOLOGY MCV 87.0 80.0 - 10/10 [place] 98.0 [facility] HEMATOLOGY Hgb 13.5 12.0 - 02 [place] 16.0 [facility] HEMATOLOGY Hct 39.8 36.0 - 10/10 [place] 48.0 [facility] HEMATOLOGY Platelet 208 133 - 450 10/10 [facility] HEMATOLOGY MPV 8.7 7.4 - 10.4 10/10 MH [facility] HEMATOLOGY WBC 6.6 3.7 - 10.4 10/10 [facility] HEMATOLOGY RBC 4.58 4.20 - 02 [place] 5.40 /2016 [facility] HEMATOLOGY Lymphocytes 1.8 1.0 - 5.5 [facility] HEMATOLOGY Monocytes # 0.6 0.0 - 0.8 10/10 [facility] HEMATOLOGY Eosinophils 0.3 0.0 - 0.5 10/10 [facility] HEMATOLOGY Basophils 0.6 0.0 - 1.0 10/10 [facility] HEMATOLOGY Segs-Bands # 3.9 1.5 - 8.1 10/10 [facility] HEMATOLOGY Monocytes 9.0 2.0 - 12.0 10/10 [facility] HEMATOLOGY Eosinophils 4.1 0.0 - 4.0 10/10 [facility] HEMATOLOGY Segs 59.5 45.0 - 10/10 [place] 75.0 [facility] HEMATOLOGY Lymphocytes 26.8 20.0 - 10/10 [place] 40.0 [facility] CARDIAC Troponin-I <0.02 0.00 - 04/14 [facility] ENZYMES 0.40 [facility] ELECTROLYT AGAP 13.5 10.0 - 04/14 [facility] ES 20.0 [facility] ELECTROLYT eGFR 79 04/14 Result [facility] Comment: The Medical eGFR is Center [...] BMI. ELECTROLYT Creatinine 0.89 0.50 - 04/14 [facility] ES Lvl 1.40 /2015 [facility] ELECTROLYT BUN 9 7 - 22 04/14 [facility] ELECTROLYT Glucose Lvl 72 70 - 99 04/14 [facility] ELECTROLYT Chloride Lvl 107 95 - 109 04/14 [place] [facility] ELECTROLYT CO2 25 24 - 32 04/14 [facility] ELECTROLYT Calcium Lvl 8.9 8.5 - 10.5 04/14 [place] [facility] ELECTROLYT Sodium Lvl 142 135 - 145 04/14 [facility] ELECTROLYT Potassium 3.5 3.5 - 5.1 04/14 [facility] ES Lvl /2015 [facility] HEMATOLOGY Platelet 181 133 - 450 04/14 [facility] HEMATOLOGY MPV 8.5 7.4 - 10.4 04/14 [facility] HEMATOLOGY MCHC 33.5 32.0 - 04/14 [place] 36.0 /2015 [facility] HEMATOLOGY MCH 28.7 27.0 - 04/14 [place] 31.0 [facility] HEMATOLOGY RDW 15.0 11.5 - 04/14 [place] 14.5 /2015 [facility] HEMATOLOGY Hct 38.3 36.0 - 04/14 [place] 48.0 /2015 [facility] HEMATOLOGY MCV 85.6 80.0 - 04/14 [place] 98.0 /2015 [facility] HEMATOLOGY Hgb 12.9 12.0 - 04/14 [place] 16.0 /2015 [facility] HEMATOLOGY RBC 4.48 4.20 - 04/14 [place] 5.40 /2015 [facility] HEMATOLOGY WBC 5.6 3.7 - 10.4 04/14 [facility] HEMATOLOGY Basophils # 0.1 0.0 - 0.2 04/14 [place] /2015 [facility] HEMATOLOGY Lymphocytes 2.2 1.0 - 5.5 04/14 [place] # /2015 [facility] HEMATOLOGY Eosinophils 0.3 0.0 - 0.5 04/14 [place] # /2015 [facility] HEMATOLOGY Monocytes # 0.5 0.0 - 0.8 04/14 [place] /2015 [facility] HEMATOLOGY Eosinophils 6.1 0.0 - 4.0 04/14 [place] /2015 [facility] HEMATOLOGY Basophils 1.1 0.0 - 1.0 04/14 [place] [facility] HEMATOLOGY Segs-Bands # 2.5 1.5 - 8.1 04/14 [place] [facility] HEMATOLOGY Lymphocytes 38.8 20.0 - 04/14 [place] 40.0 /2015 [facility] HEMATOLOGY Monocytes 9.2 2.0 - 12.0 04/14 [facility] HEMATOLOGY Segs 44.8 45.0 - 04/14 [place] 75.0 [facility] TOXICOLOGY Ethanol Lvl 8 04/14 [facility] TOXICOLOGY Etoh (%) 0.008 04/14 [facility] CARDIAC Troponin-I <0.02 0.00 - 03/12 ENZYMES 0.40 [facility] LIPIDS CHD Risk 3.39 3.90 - 03/12 5.80 /2015 [facility] LIPIDS VLDL 18 03/12 [facility] LIPIDS LDL 73 <=99 mg/dL 03/12 (Calculated) [facility] LIPIDS Trig 90 <=149 03/12 mg/dL [facility] LIPIDS Chol 129 <=199 03/12 mg/dL [facility] LIPIDS HDL 38 >=61 mg/dL 03/12 [facility] SPECIAL Hgb A1C 5.9 <=5.6 % 03/12 CHEMISTRY /2015 [facility] CARDIAC Total CK 81 12 - 191 03/12 ENZYMES /2015 [facility] CARDIAC Troponin-I 0.02 0.00 - 03/12 ENZYMES 0.40 [facility] CARDIAC CK-MB INDEX 1.6 0.0 - 2.5 03/12 EN[facility]YMES [facility] CARDIAC CK MB 1.3 0.5 - 3.6 03/12 ENZYMES /2015 [facility] HEMATOLOGY PROTIME 14.0 12.0 - 03/11 MH 14.7 /2015 [facility] HEMATOLOGY INR 1.05 0.85 - 03/11 MH 1.17 [facility] HEMATOLOGY aPTT 38.7 22.9 - 03/11 35.8 /2016 [facility] HEMATOLOGY D-Dimer 0.49 03/11 /2015 [facility] CARDIAC CK-MB INDEX 1.6 0.0 - 2.5 03/11 ENZYMES [facility] CARDIAC CK MB 1.3 0.5 - 3.6 03/11 MH ENZYMES /2016 [facility] CARDIAC Troponin-I <0.02 0.00 - 07 ENZYMES 0.40 /2016 [facility] CARDIAC Total CK 83 12 - 191 03/11 [facility] ENZYMES /2015 [facility] CARDIAC proBNP 50 0 - 125 / MH ENZYMES /2016 [facility] CHEM PANEL Lipase Lvl 196 73 - 393 03/11 MH [facility] CHEM PANEL eGFR 110 03/11 Result Comment: The [facility] eGFR is calculated using the CKD-EPI formula. [...] PANEL Globulin 2.8 2.0 - 4.0 03/11 [facility] CHEM PANEL A/G Ratio 1.2 0.7 - 1.6 03/11 [facility] CHEM PANEL B/C Ratio 15 6 - 25 03/11 [facility] CHEM PANEL AGAP 10.4 10.0 - 03/11 MH 20.0 /2016 [facility] CHEM PANEL ASPARTATE 14 0 - 37 / MH TRANSAMINASE /2015 [facility] CHEM PANEL Total 6.1 6.4 - 8.4 03/11 Protein /2015 [facility] CHEM PANEL Bili Total 0.5 0.2 - 1.3 03/11 [facility] CHEM PANEL Calcium Lvl 7.7 8.5 - 10.5 03/11 /2015 [facility] CHEM PANEL CO2 26 24 - 32 03/11 [facility] CHEM PANEL Chloride Lvl 110 95 - 109 03/11 [facility] CHEM PANEL Potassium 3.4 3.5 - 5.1 07/14 MH Lvl /2015 [facility] CHEM PANEL Sodium Lvl 143 135 - 145 07/ [facility] CHEM PANEL Creatinine 0.61 0.50 - 07 MH Lvl 1.40 [facility] CHEM PANEL BUN 9 7 - 22 03/11 [facility] CHEM PANEL Alk Phos 76 39 - 136 07 [facility] CHEM PANEL Glucose Lvl 88 70 - 99 03/11 [facility] CHEM PANEL Albumin Lvl 3.3 3.5 - 5.0 07 [facility] CHEM PANEL ALANINE 15 0 - 65 07 MH AMINOTRANSFE [facility] HEMATOLOGY Lymphocytes 1.8 1.0 - 5.5 07 MH # /2015 [facility] HEMATOLOGY Monocytes # 0.5 0.0 - 0.8 03/11 [facility] HEMATOLOGY Basophils 1.0 0.0 - 1.0 03/11 [facility] HEMATOLOGY Segs-Bands # 4.1 1.5 - 8.1 03/11 [facility] HEMATOLOGY Eosinophils 0.2 0.0 - 0.5 03/11 MH # /2015 [facility] HEMATOLOGY Basophils # 0.1 0.0 - 0.2 07 [facility] HEMATOLOGY Segs 61.4 45.0 - 03/11 MH 75.0 [facility] HEMATOLOGY Eosinophils 3.5 0.0 - 4.0 03/11 [facility] HEMATOLOGY Lymphocytes 26.6 20.0 - 03/11 MH 40.0 [facility] HEMATOLOGY Monocytes 7.5 2.0 - 12.0 07 [facility] HEMATOLOGY WBC X 10x3 6.7 3.7 - 10.4 07 [facility] HEMATOLOGY Hgb 12.2 12.0 - 03/11 MH 16.0 [facility] HEMATOLOGY RBC X 10x6 4.26 4.20 - 07 MH 5.40 [facility] HEMATOLOGY MCH 28.7 27.0 - 03/11 MH 31.0 [facility] HEMATOLOGY MCV 86.0 80.0 - 07 MH 98.0 [facility] HEMATOLOGY RDW 14.9 11.5 - 07 MH 14. [facility] HEMATOLOGY MCHC 33.3 32.0 - 07 MH 36.0 [facility] HEMATOLOGY Hct 36.6 36.0 - 07 MH 48.0 [facility] HEMATOLOGY MPV 8.7 7.4 - 10.4 03/11 [facility] HEMATOLOGY Platelet 171 133 - 450 03/11 [facility] URINE AND UA WBC 0-2 /HPF None Seen 03/11 STOOL /HPF /2015 [facility] URINE AND UA Nitrite Negative Negative 03/11 STOOL (03/11/16 3:14 PM) /2015 [place] URINE AND UA Leuk Est Negative Negative 03/11 STOOL (03/11/16 3:14 PM) /2015 [place] URINE AND UA Bacteria Occasional None Seen 03/11 STO[facility] /HPF /HPF /2015 [facility] URINE AND UA RBC 0-2 /HPF 0 - 2 03/11 STOOL /2015 [facility] URINE AND UA Sq Epi Occasional Few /LPF 03/11 STOOL /LPF /2015 [facility] URINE AND UA Blood Negative Negative 03/11 STOOL (03/11/16 3:14 PM) /2015 [place] URINE AND UA 0.2 0.1 - 1.0 03/11 STOOL Urobilinogen /2015 [facility] URINE AND UA Turbidity Clear Clear 03/11 STO[facility] (03/11/16 3:14 PM) /2015 [place] URINE AND UA Glucose Negative Negative 03/11 STOOL (03/11/16 3:14 PM) /2015 [place] URINE AND UA Spec Grav <=1.005 <=1.030 03/11 [facility] *NA* /2015 [facility] (03/11/16 3:14 PM) URINE AND UA pH 6.5 5.0 - 8.0 03/11 STOOL /2015 [facility] URINE AND UA Ketones Negative Negative 03/11 [facility] *NA* /2015 [facility] (03/11/16 3:14 PM) URINE AND UA Bili Negative Negative 03/11 STOOL *NA* [facility] (03/11/16 3:14 PM) URINE AND UA Protein Negative Negative 03/11 STOOL (03/11/16 3:14 PM) /2015 [place] URINE AND UA Color Yellow Yellow 03/11 STOOL *NA* /2015 [facility] (03/11/16 3:14 PM) URINE AND UA Color Yellow Yellow 03/01 STOOL *NA* [facility] (7/3/16 7:22 PM) URINE AND UA pH 6.0 5.0 - 8.0 03/01 STOOL /2015 [facility] URINE AND UA Turbidity Clear Clear 03/01 STOOL (02/29/16 7:22 PM) /2015 [place] URINE AND UA Spec Grav 1.015 <=1.030 03/01 STOOL /2015 [facility] URINE AND UA Leuk Est Trace Negative 03/01 [facility] *ABN* /2015 [facility] (02/29/16 7:22 PM) URINE AND UA Bacteria Few /HPF None Seen 03/01 STOOL /HPF /2015 [facility] URINE AND UA RBC None Seen 0 - 2 03/01 ST[facility] (02/29/16 7:22 PM) /2015 [place] URINE AND UA Sq Epi Moderate Few /LPF 03/01 STOOL /LPF /2015 [facility] URINE AND UA WBC 0-2 /HPF None Seen 03/01 STOOL /HPF /2015 [facility] URINE AND UA Blood Negative Negative 03/01 STOOL (02/29/16 7:22 PM) /2015 [place] URINE AND UA 1.0 0.1 - 1.0 03/01 STOOL Urobilinogen /2015 [facility] URINE AND UA Nitrite Negative Negative 03/01 STOOL (02/29/16 7:22 PM) /2015 [place] URINE AND UA Few /HPF None Seen 03/01 STOOL Trichomonas /HPF /2015 [facility] URINE AND UA Protein Negative Negative 03/01 STOOL (02/29/16 7:22 PM) [place] URINE AND UA Bili Negative Negative 03/01 STOOL *NA* /2015 [facility] (02/29/16 7:22 PM) URINE AND UA Ketones Negative Negative 03/01 STOOL *NA* /2015 [facility] (02/29/16 7:22 PM) URINE AND UA Glucose Negative Negative 03/01 STOOL (02/29/16 7:22 PM) /2015 [place] CARDIAC Troponin-I <0.02 0.00 - 02/28 ENZYMES 0.40 /2015 [facility] CARDIAC CK MB 1.1 0.5 - 3.6 02/28 ENZYMES [facility] CARDIAC Total CK 136 12 - 191 02/28 EN[facility]YMES [facility] CARDIAC proBNP 7 0 - 125 02/28 ENZYMES /2015 [facility] CARDIAC CK-MB INDEX 0.8 0.0 - 2.5 / MH ENZYMES /2015 [facility] CHEM PANEL eGFR 80 02/28 Result [facility] Comment: The [facility] eGFR is calculated using the CKD-EPI formula. [...] CHEM PANEL ASPARTATE 13 0 - 37 / MH TRANSAMINASE [facility] CHEM PANEL A/G Ratio 1.0 0.7 - 1.6 02/28 [facility] CHEM PANEL Globulin 3.6 2.0 - 4.0 02/28 [facility] CHEM PANEL B/C Ratio 9 6 - 25 02/28 [facility] CHEM PANEL Total 7.1 6.4 - 8.4 02/28 [facility] CHEM PANEL AGAP 10.0 10.0 - 02/28 MH 20.0 [facility] CHEM PANEL Sodium Lvl 143 135 - 145 02/28 [facility] CHEM PANEL Potassium 3.0 3.5 - 5.1 02/28 Result Lvl /2015 Comment: [facility] Critical Result(s) called to HAI RUVALCABA RN at 02/29/2016 18:45 by MRE. Read back OK. CHEM PANEL Creatinine 0.88 0.50 - 07 MH Lvl 1.40 /2015 [facility] CHEM PANEL CO2 30 24 - 32 02/28 [facility] CHEM PANEL Bili Total 0.6 0.2 - 1.3 02/28 [facility] CHEM PANEL Calcium Lvl 8.7 8.5 - 10.5 02/28 [facility] CHEM PANEL Chloride Lvl 106 95 - 109 /03 /2015 [facility] CHEM PANEL ALANINE 15 0 - 65 07/ MH AMINOTRANSFE /2015 [facility] RASE CHEM PANEL Alk Phos 88 39 - 136 07/ /2015 [facility] CHEM PANEL Albumin Lvl 3.5 3.5 - 5.0 07/ /2015 [facility] CHEM PANEL BUN 8 7 - 22 07/ /2015 [facility] CHEM PANEL Glucose Lvl 89 70 - 99 07/ /2015 [facility] HEMATOLOGY PROTIME 13.2 12.0 - 07/ MH 14.7 /2015 [facility] HEMATOLOGY INR 0.97 0.85 - 07/ MH 1.17 /2015 [facility] HEMATOLOGY RDW 15.3 11.5 - 07/ MH 14.5 /2015 [facility] HEMATOLOGY MCHC 32.9 32.0 - 07/ MH 36.0 /2015 [facility] HEMATOLOGY Hct 43.8 36.0 - 07/ MH 48.0 /2015 [facility] HEMATOLOGY MCH 28.1 27.0 - 07 MH 31.0 [facility] HEMATOLOGY MCV 85.5 80.0 - 07/ MH 98.0 /2015 [facility] HEMATOLOGY WBC X 10x3 5.3 3.7 - 10.4 07/ /2015 [facility] HEMATOLOGY Hgb 14.4 12.0 - 07/ MH 16.0 /2015 [facility] HEMATOLOGY RBC X 10x6 5.12 4.20 - 07/ MH 5.40 /2015 [facility] HEMATOLOGY Platelet 197 133 - 450 07/ MH /2015 [facility] HEMATOLOGY MPV 8.1 7.4 - 10.4 07/ /2015 [facility] HEMATOLOGY Segs 57.2 45.0 - 07/ MH 75.0 /2015 [facility] HEMATOLOGY Monocytes 11.7 2.0 - 12.0 07/ MH /2015 [facility] HEMATOLOGY Lymphocytes 24.1 20.0 - 07/03 MH 40.0 /2015 [facility] HEMATOLOGY Basophils # 0.1 0.0 - 0.2 07/ /2015 [facility] HEMATOLOGY Monocytes # 0.6 0.0 - 0.8 07/ /2015 [facility] HEMATOLOGY Lymphocytes 1.3 1.0 - 5.5 07/03 MH # /2015 [facility] HEMATOLOGY Eosinophils 0.3 0.0 - 0.5 07/03 MH # /2015 [facility] HEMATOLOGY Segs-Bands # 3.0 1.5 - 8.1 02/28 [facility] HEMATOLOGY Eosinophils 5.9 0.0 - 4.0 02/28 [facility] HEMATOLOGY Basophils 1.1 0.0 - 1.0 02/28 [facility] CARDIAC CK MB Index 0.7 0.0 - 2.5 09/04 ENZYMES /2015 [facility] CARDIAC CK MB 0.7 0.5 - 3.6 09/04 ENZYMES /2015 [facility] CARDIAC Troponin-I <0.02 0.00 - 09/04 ENZYMES 0.40 /2015 [facility] CARDIAC Total CK 97 12 - 191 09/04 ENZYMES [facility] ELECTROLYT AGAP 18.3 10.0 - 09/04 ES 20.0 /2015 [facility] ELECTROLYT eGFR 78 09/04 [facility] Comment: The [facility] eGFR is calculated using the CKD-EPI [...] Glucose Lvl 134 70 - 99 09/04 [facility] ELECTROLYT BUN 10 7 - 22 09/04 [facility] ELECTROLYT Creatinine 0.90 0.50 - 09/04 ES Lvl 1.40 /2015 [facility] ELECTROLYT CO2 20 24 - 32 09/04 [facility] ELECTROLYT Calcium Lvl 9.4 8.5 - 10.5 09/04 [facility] ELECTROLYT Potassium 4.3 3.5 - 5.1 09/04 ES Lvl /2015 [facility] ELECTROLYT Chloride Lvl 106 95 - 109 09/04 [facility] ELECTROLYT Sodium Lvl 140 135 - 145 09/04 ES /2015 [facility] HEMATOLOGY WBC 9.6 3.7 - 10.4 09/04 /2015 [facility] HEMATOLOGY Hct 41.4 36.0 - 09/04 MH 48.0 /2015 [facility] HEMATOLOGY Hgb 13.1 12.0 - 09/04 MH 16.0 /2015 [facility] HEMATOLOGY RBC 4.74 4.20 - 09/04 MH 5.40 /2015 [facility] HEMATOLOGY MCV 87.3 80.0 - 09/04 98.0 /2015 [facility] HEMATOLOGY MCHC 31.5 32.0 - 09/04 MH 36.0 /2015 [facility] HEMATOLOGY MCH 27.5 27.0 - 09/04 MH 31.0 /2015 [facility] HEMATOLOGY MPV 8.7 7.4 - 10.4 09/04 /2015 [facility] HEMATOLOGY Platelet 226 133 - 450 09/04 /2015 [facility] HEMATOLOGY RDW 14.4 11.5 - 09/04 MH 14.5 /2015 [facility] HEMATOLOGY Monocytes # 0.1 0.0 - 0.8 09/04 /2015 [facility] HEMATOLOGY Lymphocytes 0.5 1.0 - 5.5 09/04 MH # /2015 [facility] HEMATOLOGY RBC Morph Normal 09/04 (09/04/15 11:04 AM) /2015 [facility] est HEMATOLOGY Plt Morph Normal 09/04 (09/04/15 11:04 AM) /2015 [facility] HEMATOLOGY Segs 93.3 45.0 - 09/04 MH 75.0 /2015 [facility] HEMATOLOGY Basophils 0.2 0.0 - 1.0 09/04 /2015 [facility] HEMATOLOGY Lymphocytes 5.4 20.0 - 09/04 40.0 /2015 [facility] HEMATOLOGY Monocytes 1.1 2.0 - 12.0 09/04 /2015 [facility] HEMATOLOGY Segs-Bands # 9.0 1.5 - 8.1 09/04 [facility] LIPIDS VLDL 14 09/04 [facility] LIPIDS Chol 198 <=199 09/04 mg/dL /2015 [facility] LIPIDS HDL 54 >=61 mg/dL 09/04 [facility] LIPIDS Trig 71 <=149 09/04 mg/dL /2015 [facility] LIPIDS LDL 130 <=99 mg/dL 09/04 (Calculated) /2015 [facility] LIPIDS CHD Risk 3.67 3.90 - 09/04 MH 5.80 /2015 [facility] CARDIAC CK MB Index 0.6 0.0 - 2.5 09/04 MH ENZYMES /2016 [facility] CARDIAC CK MB 0.6 0.5 - 3.6 09/04 MH ENZYMES /2015 [facility] CARDIAC Troponin-I <0.02 0.00 - 09/04 ENZYMES 0.40 [facility] CARDIAC Total CK 103 12 - 191 09/04 MH ENZYMES /2015 [facility] CARDIAC Total CK 113 12 - 191 09/04 ENZYMES /2015 [facility] CARDIAC Troponin-I <0.02 0.00 - 09/04 ENZYMES 0.40 [facility] CARDIAC CK MB 0.8 0.5 - 3.6 09/04 MH ENZYMES /2015 [facility] CARDIAC CK MB Index 0.7 0.0 - 2.5 09/04 ENZYMES [facility] CHEM PANEL eGFR 87 09/04 [facility] [[email or web address] Comment: [facility] eGFR is calculated using the CKD-EPI [...] PANEL BUN 8 7 - 22 09/04 [facility] CHEM PANEL Creatinine 0.82 0.50 - 09/04 MH Lvl 1.40 [facility] CHEM PANEL Glucose Lvl 115 70 - 99 09/04 [facility] CHEM PANEL Chloride Lvl 106 95 - 109 09/04 [facility] CHEM PANEL Potassium 3.9 3.5 - 5.1 09/04 MH Lvl /2015 [facility] CHEM PANEL Sodium Lvl 141 135 - 145 09/04 [facility] CHEM PANEL AGAP 13.9 10.0 - 09/04 MH 20.0 [facility] CHEM PANEL Calcium Lvl 9.2 8.5 - 10.5 09/04 [facility] CHEM PANEL CO2 25 24 - 32 09/04 /2015 [facility] HEMATOLOGY WBC 7.4 3.7 - 10.4 09/04 [facility] HEMATOLOGY Hgb 12.4 12.0 - 09/04 MH 16.0 /2015 [facility] HEMATOLOGY RBC 4.57 4.20 - 09/04 MH 5.40 /2015 [facility] HEMATOLOGY Hct 39.4 36.0 - 09/04 MH 48.0 /2015 [facility] HEMATOLOGY MCV 86.1 80.0 - 09/04 MH 98.0 /2015 [facility] HEMATOLOGY RDW 14.7 11.5 - 09/04 MH 14.5 /2015 [facility] HEMATOLOGY MCHC 31.6 32.0 - 09/04 MH 36.0 /2015 [facility] HEMATOLOGY MCH 27.2 27.0 - 09/04 MH 31.0 /2015 [facility] HEMATOLOGY MPV 8.3 7.4 - 10.4 09/04 [facility] HEMATOLOGY Platelet 239 133 - 450 09/04 [facility] HEMATOLOGY Eosinophils 5.5 0.0 - 4.0 09/04 [facility] HEMATOLOGY Monocytes 6.5 2.0 - 12.0 09/04 [facility] HEMATOLOGY Lymphocytes 31.7 20.0 - 09/04 40.0 [facility] HEMATOLOGY Segs 55.0 45.0 - 09/04 MH 75.0 /2015 [facility] HEMATOLOGY Monocytes # 0.5 0.0 - 0.8 09/04 [facility] HEMATOLOGY Lymphocytes 2.3 1.0 - 5.5 09/04 MH # /2015 [facility] HEMATOLOGY Segs-Bands # 4.0 1.5 - 8.1 09/04 [facility] HEMATOLOGY Basophils 1.3 0.0 - 1.0 09/04 [facility] HEMATOLOGY Basophils # 0.1 0.0 - 0.2 09/04 [facility] HEMATOLOGY Eosinophils 0.4 0.0 - 0.5 09/04 MH # /2015 [facility] CARDIAC Troponin-I <0.02 0.00 - 07/16 ENZYMES 0.40 [facility] CARDIAC Total CK 75 12 - 191 07/16 MH ENZYMES /2014 [facility] CARDIAC CK MB 0.9 0.5 - 3.6 07/16 MH ENZYMES /2014 [facility] CARDIAC CK-MB INDEX 1.2 0.0 - 2.5 07/16 MH ENZYMES /2014 [facility] CHEM PANEL eGFR 105 07/16 Result Comment: [facility] eGFR is calculated using the CKD-EPI [...] Bili Total 0.6 0.2 - 1.3 07/16 [facility] CHEM PANEL Albumin Lvl 3.1 3.5 - 5.0 07/16 [facility] CHEM PANEL Calcium Lvl 9.0 8.5 - 10.5 07/16 [facility] CHEM PANEL Total 6.3 6.4 - 8.4 07/16 [facility] CHEM PANEL AST 14 0 - 37 07/16 [facility] CHEM PANEL Alk Phos 89 39 - 136 07/16 [facility] CHEM PANEL ALT 19 0 - 65 07/16 [facility] CHEM PANEL CO2 25 24 - 32 07/16 [facility] CHEM PANEL Potassium 4.2 3.5 - 5.1 07/16 Lvl [facility] CHEM PANEL Chloride Lvl 108 95 - 109 07/16 [facility] CHEM PANEL BUN 14 7 - 22 07/16 [facility] CHEM PANEL Creatinine 0.70 0.50 - 11 MH Lvl 1.40 /2014 [facility] CHEM PANEL Sodium Lvl 139 135 - 145 07/16 [facility] CHEM PANEL Glucose Lvl 78 70 - 99 07/16 [facility] CHEM PANEL B/C Ratio 20 6 - 25 07/16 [facility] CHEM PANEL AGAP 10.2 10.0 - 07/16 MH 20.0 /2014 [facility] CHEM PANEL A/G Ratio 1.0 0.7 - 1.6 07/16 [facility] CHEM PANEL Globulin 3.2 2.0 - 4.0 11 MH /2014 [facility] HEMATOLOGY MPV 8.6 7.4 - 10.4 07/16 MH /2014 [facility] HEMATOLOGY Platelet 166 133 - 450 07/16 MH /2014 [facility] HEMATOLOGY RDW 14.3 11.5 - 07/16 MH 14.5 /2014 [facility] HEMATOLOGY RBC 4.53 4.20 - 07/16 MH 5.40 /2014 [facility] HEMATOLOGY WBC 5.5 3.7 - 10.4 07/16 MH /2014 [facility] HEMATOLOGY MCH 27.9 27.0 - 07/16 MH 31.0 /2014 [facility] HEMATOLOGY MCHC 31.5 32.0 - 07/16 MH 36.0 /2014 [facility] HEMATOLOGY MCV 88.6 80.0 - 07/16 MH 98.0 /2014 [facility] HEMATOLOGY Hct 40.2 36.0 - 07/16 MH 48.0 /2014 [facility] HEMATOLOGY Hgb 12.6 12.0 - 07/16 MH 16.0 /2014 [facility] HEMATOLOGY Eosinophils 0.2 0.0 - 0.5 07/16 MH # /2014 [facility] HEMATOLOGY Lymphocytes 2.0 1.0 - 5.5 07/16 MH # /2014 [facility] HEMATOLOGY Basophils 0.9 0.0 - 1.0 07/16 MH /2014 [facility] HEMATOLOGY Monocytes # 0.6 0.0 - 0.8 07/16 MH /2014 [facility] HEMATOLOGY Segs-Bands # 2.6 1.5 - 8.1 07/16 MH /2014 [facility] HEMATOLOGY Monocytes 11.0 2.0 - 12.0 07/16 MH /2014 [facility] HEMATOLOGY Eosinophils 4.0 0.0 - 4.0 07/16 MH /2014 [facility] HEMATOLOGY Lymphocytes 36.1 20.0 - 07/16 MH 40.0 /2014 [facility] HEMATOLOGY Segs 48.0 45.0 - 07/16 MH 75.0 /2014 [facility] HEMATOLOGY Basophils # 0.1 0.0 - 0.2 07/16 MH /2014 [facility] CARDIAC Troponin-I <0.02 0.00 - 07/16 ENZYMES 0.40 [facility] CARDIAC Total CK 88 12 - 191 07/16 MH ENZYMES /2014 [facility] CARDIAC CK MB Index 1.1 0.0 - 2.5 07/16 MH ENZYMES /2014 [facility] CARDIAC CK MB 1.0 0.5 - 3.6 07/16 MH ENZYMES /2014 [facility] CARDIAC Troponin-I <0.02 0.00 - 07/15 MH ENZYMES 0.40 /2014 [facility] CARDIAC CK MB 1.2 0.5 - 3.6 07/15 ENZYMES /2014 [facility] CARDIAC Total CK 103 12 - 191 07/15 ENZYMES [facility] CARDIAC CK MB Index 1.2 0.0 - 2.5 07/15 ENZYMES [facility] CHEM PANEL eGFR 90 07/15 [facility] [[email or web address] Comment: [facility] eGFR is calculated using the CKD-EPI [...] Alk Phos 91 39 - 136 07/15 [facility] CHEM PANEL AST 19 0 - 37 07/15 [facility] CHEM PANEL ALT 17 0 - 65 07/15 [facility] CHEM PANEL B/C Ratio 12 6 - 25 07/15 [facility] CHEM PANEL Bili Total 0.8 0.2 - 1.3 07/15 [facility] CHEM PANEL AGAP 11.1 10.0 - 07/15 MH 20.0 /2014 [facility] CHEM PANEL Albumin Lvl 3.5 3.5 - 5.0 07/15 [place] CHEM PANEL CO2 27 24 - 32 07/15 [facility] CHEM PANEL Total 6.8 6.4 - 8.4 07/15 Protein [facility] CHEM PANEL Calcium Lvl 8.7 8.5 - 10.5 07/15 [facility] CHEM PANEL Globulin 3.3 2.0 - 4.0 07/15 [facility] CHEM PANEL A/G Ratio 1.1 0.7 - 1.6 07/15 [facility] CHEM PANEL Creatinine 0.80 0.50 - 07/15 MH Lvl 1.40 /2014 [facility] CHEM PANEL Chloride Lvl 104 95 - 109 07/15 /2014 [facility] CHEM PANEL Sodium Lvl 138 135 - 145 07/15 [facility] CHEM PANEL Potassium 4.1 3.5 - 5.1 07/15 Lvl /2014 [facility] CHEM PANEL BUN 10 7 - 22 07/15 /2014 [facility] CHEM PANEL Glucose Lvl 72 70 - 99 07/15 [facility] HEMATOLOGY Segs-Bands # 3.3 1.5 - 8.1 07/15 /2014 [facility] HEMATOLOGY Eosinophils 0.2 0.0 - 0.5 07/15 MH # /2014 [facility] HEMATOLOGY Monocytes # 0.6 0.0 - 0.8 07/15 /2014 [facility] HEMATOLOGY Lymphocytes 2.3 1.0 - 5.5 07/15 MH # /2014 [facility] HEMATOLOGY Segs 51.8 45.0 - 07/15 MH 75.0 /2014 [facility] HEMATOLOGY Basophils 0.6 0.0 - 1.0 07/15 /2014 [facility] HEMATOLOGY Eosinophils 3.1 0.0 - 4.0 07/15 /2014 [facility] HEMATOLOGY Monocytes 9.4 2.0 - 12.0 07/15 /2014 [facility] HEMATOLOGY Lymphocytes 35.1 20.0 - 07/15 40.0 /2014 [facility] HEMATOLOGY Basophils # 0.0 0.0 - 0.2 07/15 /2014 [facility] HEMATOLOGY MPV 9.1 7.4 - 10.4 07/15 /2014 [facility] HEMATOLOGY MCV 87.6 80.0 - 07/15 98.0 /2014 [facility] HEMATOLOGY Hgb 12.9 12.0 - 07/15 16.0 /2014 [facility] HEMATOLOGY Hct 39.8 36.0 - 07/15 48.0 /2014 [facility] HEMATOLOGY MCHC 32.3 32.0 - 07/15 36.0 /2014 [facility] HEMATOLOGY RDW 14.8 11.5 - 07/15 14.5 /2014 [facility] HEMATOLOGY MCH 28.3 27.0 - 07/15 31.0 /2014 [facility] HEMATOLOGY Platelet 171 133 - 450 07/15 [facility] HEMATOLOGY RBC 4.54 4.20 - 07/15 5.40 /2014 [facility] HEMATOLOGY WBC 6.4 3.7 - 10.4 07/15 [facility] IMMUNOLOGY [facility] HIV 4th Negative Negative 05/18 [facility] s GEN (05/18/15 2:18 PM) [facility] CARDIAC Troponin-I <0.02 0.00 - 05/18 [facility] ENZYMES 0.40 [facility] CHEM PANEL Bili Direct 0.1 0.0 - 0.3 05/18 [facility] s /2014 [facility] CHEM PANEL Globulin 3.9 2.0 - 4.0 05/18 [facility] CHEM PANEL Alk Phos 105 39 - 136 05/18 [place] [facility] CHEM PANEL Bili Total 0.5 0.2 - 1.3 05/18 [place] [facility] CHEM PANEL AST 22 0 - 37 05/18 [place] [facility] CHEM PANEL ALT 18 0 - 65 05/18 [facility] CHEM PANEL Total 7.9 6.4 - 8.4 05/18 [facility] Protein [facility] CHEM PANEL Albumin Lvl 4.0 3.5 - 5.0 05/18 [facility] s [facility] CHEM PANEL Bili 0.4 0.0 - 1.0 05/18 [facility] Indirect [facility] CHEM PANEL A/G Ratio 1.0 0.7 - 1.6 05/18 [facility] CHEM PANEL Lipase Lvl 266 73 - 393 05/18 [facility] CHEM PANEL eGFR 78 05/18 [facility] Comment: The [facility] eGFR is Center [...] Sodium Lvl 138 135 - 145 05/18 [facility] CHEM PANEL Potassium 3.9 3.5 - 5.1 05/18 [facility] CHEM PANEL Creatinine 0.9 0.5 - 1.4 05/18 [facility] CHEM PANEL Glucose Lvl 87 70 - 99 05/18 [facility] CHEM PANEL BUN 7 7 - 22 05/18 [facility] CHEM PANEL Chloride Lvl 103 95 - 109 05/18 [facility] CHEM PANEL CO2 28 24 - 32 05/18 [facility] CHEM PANEL Calcium Lvl 10.2 8.5 - 10.5 05/18 [facility] [place] CHEM PANEL AGAP 10.9 10.0 - 05/18 20.0 [facility] HEMATOLOGY Hgb 14.2 12.0 - 05/18 [place] 16.0 [facility] HEMATOLOGY RBC 4.96 4.20 - 05/18 [place] 5.40 /2014 [facility] [place] HEMATOLOGY MCH 28.7 27.0 - 05/18 [place] 31.0 [facility] [place] HEMATOLOGY MCHC 32.9 32.0 - 05/18 [place] 36.0 [facility] HEMATOLOGY Hct 43.3 36.0 - 05/18 48.0 [facility] HEMATOLOGY MCV 87.2 80.0 - 05/18 [place] 98.0 [facility] HEMATOLOGY WBC 6.8 3.7 - 10.4 05/18 [facility] HEMATOLOGY Platelet 215 133 - 450 05/18 [facility] HEMATOLOGY MPV 8.2 7.4 - 10.4 05/18 [facility] HEMATOLOGY RDW 14.5 11.5 - 05/18 [place] 14.5 [facility] HEMATOLOGY Segs 55.6 45.0 - 05/18 [place] 75.0 [facility] HEMATOLOGY Lymphocytes 32.7 20.0 - 05/18 [place] 40.0 [facility] HEMATOLOGY Monocytes 8.5 2.0 - 12.0 05/18 [facility] HEMATOLOGY Segs-Bands # 3.8 1.5 - 8.1 05/18 [facility] [place] HEMATOLOGY Basophils 0.6 0.0 - 1.0 05/18 [facility] [place] HEMATOLOGY Lymphocytes 2.2 1.0 - 5.5 05/[place] # /2014 [facility] HEMATOLOGY Eosinophils 2.6 0.0 - 4.0 05/[place] /2014 [facility] HEMATOLOGY Eosinophils 0.2 0.0 - 0.5 05/[place] # /2014 [facility] HEMATOLOGY Monocytes # 0.6 0.0 - 0.8 05/[place] /2014 [facility] IMMUNOLOGY [employer]-Hep C Positive Negative [facility]2014 [facility] (05/18/15 1:26 PM) [facility] IMMUNOLOGY [employer] HCV [id number] 05/18 [facility] RNA [employer] /2014 [facility] IMMUNOLOGY [employer] HCV 5.5 05/18 [facility] RNA Log10 [facility] CARDIAC Troponin-I <0.02 0.00 - 05/09 [facility] ENZYMES 0.40 [facility] CHEM PANEL eGFR 90 05/09 Result Comment: The Medical eGFR is Center [...] PANEL CO2 28 24 - 32 05/09 [facility] CHEM PANEL Calcium Lvl 9.6 8.5 - 10.5 05/09 [facility] CHEM PANEL Chloride Lvl 105 95 - 109 [facility] CHEM PANEL Creatinine 0.8 0.5 - 1.4 05/09 [facility] Lvl /2014 [facility] CHEM PANEL Sodium Lvl 139 135 - 145 05/09 [facility] CHEM PANEL Potassium 3.7 3.5 - 5.1 05/09 [facility] Lvl /2014 [facility] CHEM PANEL Glucose Lvl 102 70 - 99 05/09 [facility] CHEM PANEL BUN 7 7 - 22 05/09 [facility] CHEM PANEL AGAP 9.7 10.0 - 09 [place] 20.0 /2014 [facility] HEMATOLOGY RDW 14.4 11.5 - 09 [place] 14.5 /2014 [facility] HEMATOLOGY MCHC 32.5 32.0 - 09 [place] 36.0 /2014 [facility] HEMATOLOGY MCH 28.7 27.0 - 09 [place] 31.0 /2014 [facility] HEMATOLOGY Platelet 202 133 - 450 09 [facility] HEMATOLOGY MPV 7.6 7.4 - 10.4 05/09 [facility] HEMATOLOGY MCV 88.2 80.0 - 09 [place] 98.0 /2014 [facility] HEMATOLOGY Hct 41.9 36.0 - 05/09 [place] 48.0 /2014 [facility] HEMATOLOGY RBC 4.75 4.20 - 05/09 [place] 5.40 /2014 [facility] HEMATOLOGY Hgb 13.6 12.0 - 05/09 [place] 16.0 /2014 [facility] HEMATOLOGY WBC 5.6 3.7 - 10.4 05/09 [facility] HEMATOLOGY Lymphocytes 2.1 1.0 - 5.5 05/09 [place] # /2014 [facility] HEMATOLOGY Basophils # 0.1 0.0 - 0.2 05/09 s [facility] HEMATOLOGY Eosinophils 0.2 0.0 - 0.5 05/09 [place] # /2014 [facility] HEMATOLOGY Monocytes # 0.4 0.0 - 0.8 05/09 s [facility] HEMATOLOGY Segs 50.8 45.0 - 05/09 [place] 75.0 /2014 [facility] HEMATOLOGY Eosinophils 2.8 0.0 - 4.0 05/09 s [facility] HEMATOLOGY Segs-Bands # 2.9 1.5 - 8.1 05/09 [facility] HEMATOLOGY Basophils 1.1 0.0 - 1.0 05/09 [facility] HEMATOLOGY Monocytes 7.7 2.0 - 12.0 05/09 [facility] HEMATOLOGY Lymphocytes 37.6 20.0 - 09 [facility] 40.0 [facility] CARDIAC Troponin-I <0.02 0.00 - 05/02 [facility] ENZYMES 0. [facility] CHEM PANEL Phosphorus 3.2 2.5 - 4.5 05/02 [facility] CHEM PANEL Magnesium 2.1 1.8 - 2.4 05/02 [facility] ELECTROLYT AGAP 12.4 10.0 - 05/02 [facility] ES 20.0 [facility] ELECTROLYT eGFR 68 05/02 Result [facility] Comment: [facility] eGFR is Center calculated using the CKD-EPI [...] Chloride Lvl 104 95 - 109 [facility]/02 [facility] ELECTROLYT Sodium Lvl 141 135 - 145 05/02 [facility] ELECTROLYT CO2 28 24 - 32 05/02 [facility] ELECTROLYT Calcium Lvl 8.8 8.5 - 10.5 05/02 [place] [facility] ELECTROLYT Potassium 3.4 3.5 - 5.1 05/02 [facility] ELECTROLYT Creatinine 0.9 0.5 - 1.4 05/02 [facility] ELECTROLYT Glucose Lvl 92 70 - 99 05/02 [facility] ELECTROLYT BUN 6 7 - 22 05/02 [facility] HEMATOLOGY MPV 8.0 7.4 - 10.4 05/02 MH [facility] HEMATOLOGY RDW 14.1 11.5 - 05/02 [place] 14.5 /2014 [facility] HEMATOLOGY Platelet 212 133 - 450 09 [facility] HEMATOLOGY MCHC 32.6 32.0 - 05/02 [place] 36.0 /2014 [facility] HEMATOLOGY WBC 8.0 3.7 - 10.4 05/02 [facility] HEMATOLOGY Hct 40.2 36.0 - 05/02 [place] 48.0 /2014 [facility] HEMATOLOGY MCV 87.4 80.0 - 05/02 [place] 98.0 /2014 [facility] HEMATOLOGY Hgb 13.1 12.0 - 05/02 [place] 16.0 /2014 [facility] HEMATOLOGY RBC 4.60 4.20 - 05/02 [place] 5.40 /2014 [facility] HEMATOLOGY MCH 28.5 27.0 - 05/02 [place] 31.0 /2014 [facility] HEMATOLOGY Lymphocytes 26.3 20.0 - 05/02 [place] 40.0 /2014 [facility] HEMATOLOGY Segs 60.9 45.0 - 05/02 [place] 75.0 /2014 [facility] HEMATOLOGY Basophils 1.0 0.0 - 1.0 05/02 [facility] HEMATOLOGY Eosinophils 3.0 0.0 - 4.0 05/02 s [facility] HEMATOLOGY Monocytes 8.8 2.0 - 12.0 05/02 [facility] HEMATOLOGY Monocytes # 0.7 0.0 - 0.8 05/02 s /2014 [facility] HEMATOLOGY Eosinophils 0.2 0.0 - 0.5 05/02 [place] # /2014 [facility] HEMATOLOGY Lymphocytes 2.1 1.0 - 5.5 05/02 [place] # /2014 [facility] HEMATOLOGY Segs-Bands # 4.9 1.5 - 8.1 05/02 [place] /2014 [facility] HEMATOLOGY Basophils # 0.1 0.0 - 0.2 05/02 [place] [facility] URINE AND UA Nitrite Negative Negative 05/02 [facility] STOOL (05/02/15 4:38 PM) /2014 [facility] URINE AND UA WBC 0-2 /HPF None Seen 05/02 [facility] STOOL /HPF /2014 [facility] URINE AND UA Leuk Est Moderate Negative 05/02 [facility] STOOL *ABN* /2014 [facility] (05/02/15 4:38 PM) Center URINE AND UA RBC None Seen 0 - 2 05/02 [facility] STOOL (05/02/15 4:38 PM) /2014 [facility] URINE AND UA Sq Epi Occasional Few /LPF 05/02 [facility] STOOL /LPF [facility] URINE AND UA Bacteria None Seen None Seen 05/02 [place] [facility] (05/02/15 4:38 PM) [facility] URINE AND UA Mucus Rare /LPF None Seen 05/02 [facility] STOOL /LPF /2014 [facility] URINE AND UA Glucose Negative Negative 05/02 [facility] (05/02/15 4:38 PM) /2014 [facility] URINE AND UA Ketones Negative Negative 05/02 [facility] *NA* /2014 [facility] (05/02/15 4:38 PM) [place] URINE AND UA 0.2 0.1 - 1.0 05/02 [facility] Urobilinogen /2014 [facility] URINE AND UA Blood Negative Negative 05/02 [facility] (05/02/15 4:38 PM) /2014 [facility] URINE AND UA Bili Negative Negative 05/02 [facility] *NA* /2014 [facility] (05/02/15 4:38 PM) [place] URINE AND UA Color Yellow Yellow 05/02 [facility] *NA* /2014 [facility] (05/02/15 4:38 PM) [place] URINE AND UA pH 6.0 5.0 - 8.0 05/02 [facility] URINE AND UA Turbidity Slight Cloudy Clear 05/02 [facility] (05/02/15 4:38 PM) [facility] URINE AND UA Protein Negative Negative 05/02 [facility] (05/02/15 4:38 PM) [facility] URINE AND UA Spec Grav 1.006 <=1.030 05/02 [facility] CHEM PANEL Lipase Lvl 188 73 - 393 03/24 [facility] CHEM PANEL eGFR 106 03/24 Result Comment: [facility] eGFR is calculated using the CKD-EPI [...] CHEM PANEL Creatinine 0.7 0.5 - 1.4 03/24l [facility] CHEM PANEL BUN 4 7 - 22 03/24 [facility] CHEM PANEL Potassium 3.2 3.5 - 5.1 03/24l [place] CHEM PANEL Sodium Lvl 142 135 - 145 03/24 [place] CHEM PANEL Glucose Lvl 91 70 - 99 03/24 [facility] CHEM PANEL Albumin Lvl 3.5 3.5 - 5.0 03/24 [facility] CHEM PANEL Total 6.6 6.4 - 8.4 03/24 [place] CHEM PANEL Chloride Lvl 107 95 - 109 03/24 [place] CHEM PANEL Calcium Lvl 9.1 8.5 - 10.5 03/24 [place] CHEM PANEL CO2 27 24 - 32 03/24 [place] CHEM PANEL AGAP 11.2 10.0 - 03/24 MH 20.0 [facility] CHEM PANEL AST 21 0 - 37 03/24 [place] CHEM PANEL ALT 34 0 - 65 03/24 [facility] CHEM PANEL Bili Total 0.6 0.2 - 1.3 03/24 [facility] CHEM PANEL Alk Phos 95 39 - 136 03/24 [facility] CHEM PANEL B/C Ratio 6 6 - 25 03/24 [facility] CHEM PANEL A/G Ratio 1.1 0.7 - 1.6 03/24 [facility] CHEM PANEL Globulin 3.1 2.0 - 4.0 03/24 [facility] HEMATOLOGY Monocytes 11.3 2.0 - 12.0 03/24 [facility] HEMATOLOGY Lymphocytes 27.1 20.0 - 07 MH 40.0 /2014 [facility] HEMATOLOGY Eosinophils 5.9 0.0 - 4.0 03/24 [facility] HEMATOLOGY Segs-Bands # 3.3 1.5 - 8.1 03/24 /2014 [facility] HEMATOLOGY Basophils 0.7 0.0 - 1.0 03/24 /2014 [facility] HEMATOLOGY Segs 55.0 45.0 - 03/24 MH 75.0 /2014 [facility] Monocytes # 0.7 0.0 - 0.8 03/24 /2014 [facility] HEMATOLOGY Lymphocytes 1.6 1.0 - 5.5 03/24 MH # /2014 [facility] HEMATOLOGY Eosinophils 0.4 0.0 - 0.5 03/24 MH # /2014 [facility] HEMATOLOGY RBC 4.21 4.20 - 03/24 MH 5.40 /2014 [facility] HEMATOLOGY WBC 5.9 3.7 - 10.4 03/24 /2014 [facility] HEMATOLOGY Platelet 204 133 - 450 03/24 /2014 [facility] HEMATOLOGY MCHC 32.4 32.0 - 03/24 36.0 /2014 [facility] HEMATOLOGY RDW 14.2 11.5 - 03/24 MH 14.5 [facility] MPV 8.6 7.4 - 10.4 03/24 /2014 [facility] Hct 37.2 36.0 - 03/24 MH 48.0 /2014 [facility] HEMATOLOGY MCV 88.3 80.0 - 03/24 MH 98.0 /2014 [facility] HEMATOLOGY Hgb 12.1 12.0 - 03/24 MH 16.0 [facility] MCH 28.6 27.0 - 03/24 31.0 /2014 [facility] URINE AND Occult Bld Negative Negative 03/23 STO[facility] (03/23/15 1:14 PM) /2014 [facility] est CARDIAC CK MB 0.8 0.5 - 3.6 03/23 ENZYMES [facility] CARDIAC Total CK 70 12 - 191 03/23 ENZYMES /2014 [facility] CARDIAC CK MB Index 1.1 0.0 - 2.5 03/23 ENZYMES [facility] CHEM PANEL eGFR 106 03/23 Result Comment: [facility] eGFR is calculated using the CKD-EPI [...] PANEL CO2 27 24 - 32 03/23 [facility] CHEM PANEL Calcium Lvl 9.2 8.5 - 10.5 03/23 [facility] CHEM PANEL Chloride Lvl 108 95 - 109 03/23 [facility] CHEM PANEL Sodium Lvl 142 135 - 145 03/23 [facility] CHEM PANEL Potassium 3.5 3.5 - 5.1 03/23 Lvl /2014 [facility] CHEM PANEL Creatinine 0.7 0.5 - 1.4 03/23 Lvl /2014 [facility] CHEM PANEL BUN 8 7 - 22 03/23 [facility] CHEM PANEL Glucose Lvl 101 70 - 99 03/23 [facility] CHEM PANEL AGAP 10.5 10.0 - 03/23 MH 20.0 [facility] HEMATOLOGY Lymphocytes 1.3 1.0 - 5.5 03/23 MH # /2014 [facility] HEMATOLOGY Segs-Bands # 3.4 1.5 - 8.1 03/23 [facility] HEMATOLOGY Basophils 0.6 0.0 - 1.0 03/23 [facility] HEMATOLOGY Eosinophils 4.0 0.0 - 4.0 03/23 [facility] HEMATOLOGY Eosinophils 0.2 0.0 - 0.5 03/23 # /2014 [facility] HEMATOLOGY Monocytes # 0.6 0.0 - 0.8 03/23 [facility] HEMATOLOGY Monocytes 11.0 2.0 - 12.0 03/23 [facility] HEMATOLOGY Lymphocytes 23.6 20.0 - 03/23 MH 40.0 /2014 [facility] HEMATOLOGY Segs 60.8 45.0 - 03/23 MH 75.0 [facility] HEMATOLOGY MPV 8.3 7.4 - 10.4 03/23 [facility] HEMATOLOGY Platelet 196 133 - 450 03/23 [facility] HEMATOLOGY RDW 14.6 11.5 - 03/23 MH 14.5 [facility] HEMATOLOGY MCV 88.0 80.0 - 03/23 MH 98.0 /2014 [facility] HEMATOLOGY MCH 28.7 27.0 - 03/23 MH 31.0 /2014 [facility] HEMATOLOGY Hct 34.7 36.0 - 03/23 MH 48.0 /2014 [facility] HEMATOLOGY MCHC 32.6 32.0 - 03/23 MH 36.0 /2014 [facility] HEMATOLOGY Hgb 11.3 12.0 - 03/23 MH 16.0 /2014 [facility] HEMATOLOGY RBC 3.94 4.20 - 03/23 MH 5.40 /2014 [facility] HEMATOLOGY WBC 5.6 3.7 - 10.4 03/23 /2014 [facility] CARDIAC CK MB Index 1.6 0.0 - 2.5 03/22 ENZYMES [facility] CARDIAC CK MB 1.0 0.5 - 3.6 03/22 ENZYMES [facility] CARDIAC Total CK 64 12 - 191 03/22 ENZYMES [facility] CHEM PANEL eGFR 111 03/22 Result Comment: [facility] eGFR is calculated using the CKD-EPI [...] Calcium Lvl 8.7 8.5 - 10.5 03/22 [facility] CHEM PANEL Sodium Lvl 144 135 - 145 03/22 [facility] CHEM PANEL Potassium 3.9 3.5 - 5.1 03/22 MH Lvl /2014 [facility] CHEM PANEL Chloride Lvl 112 95 - 109 03/22 [facility] CHEM PANEL CO2 27 24 - 32 03/22 [facility] CHEM PANEL Glucose Lvl 94 70 - 99 03/22 [facility] CHEM PANEL BUN 8 7 - 22 03/22 [facility] CHEM PANEL Creatinine 0.6 0.5 - 1.4 03/22 Lvl /2014 [facility] CHEM PANEL AGAP 8.9 10.0 - 03/22 MH 20.0 /2014 [facility] HEMATOLOGY Eosinophils 0.2 0.0 - 0.5 03/22 MH # /2015 [facility] HEMATOLOGY Monocytes # 0.5 0.0 - 0.8 03/22 /2014 [facility] HEMATOLOGY Basophils 0.9 0.0 - 1.0 03/22 /2014 [facility] HEMATOLOGY Monocytes 11.2 2.0 - 12.0 03/22 MH /2014 [facility] HEMATOLOGY Segs-Bands # 2.1 1.5 - 8.1 03/22 MH /2014 [facility] HEMATOLOGY Eosinophils 3.7 0.0 - 4.0 03/22 /2014 [facility] HEMATOLOGY Lymphocytes 1.6 1.0 - 5.5 03/22 MH # /2014 [facility] HEMATOLOGY Segs 48.6 45.0 - 03/22 MH 75.0 /2014 [facility] HEMATOLOGY Lymphocytes 35.6 20.0 - 03/22 MH 40.0 /2014 [facility] HEMATOLOGY MPV 8.9 7.4 - 10.4 03/22 /2014 [facility] HEMATOLOGY WBC 4.4 3.7 - 10.4 03/22 MH /2014 [facility] HEMATOLOGY MCH 29.9 27.0 - 03/22 MH 31.0 /2014 [facility] HEMATOLOGY MCV 86.5 80.0 - 03/22 MH 98.0 /2014 [facility] HEMATOLOGY MCHC 34.6 32.0 - 03/22 MH 36.0 /2014 [facility] HEMATOLOGY Hgb 11.7 12.0 - 03/22 16.0 /2014 [facility] HEMATOLOGY RBC 3.92 4.20 - 03/22 MH 5.40 /2014 [facility] HEMATOLOGY Hct 33.9 36.0 - 03/22 MH 48.0 /2014 [facility] HEMATOLOGY RDW 14.6 11.5 - 03/22 MH 14.5 /2014 [facility] HEMATOLOGY Platelet 176 133 - 450 03/22 [facility] CARDIAC CK MB Index 1.6 0.0 - 2.5 03/22 ENZYMES /2014 [facility] CARDIAC Total CK 77 12 - 191 03/22 ENZYMES /2014 [facility] CARDIAC CK MB 1.2 0.5 - 3.6 03/22 ENZYMES /2014 [facility] CHEM PANEL Lactic Acid 1.4 0.5 - 2.2 03/22 Lvl /2014 [facility] CARDIAC Troponin-I <0.02 0.00 - 03/21 MH ENZYMES 0.40 /2014 [facility] CHEM PANEL Globulin 3.3 2.0 - 4.0 03/21 MH /2014 [facility] CHEM PANEL A/G Ratio 1.1 0.7 - 1.6 03/21 [facility] CHEM PANEL B/C Ratio 16 6 - 25 03/21 [facility] CHEM PANEL Alk Phos 105 39 - 136 03/21 MH /2014 [facility] CHEM PANEL AST 25 0 - 37 03/21 [facility] CHEM PANEL Bili Total 0.5 0.2 - 1.3 03/21 [facility] CHEM PANEL ALT 32 0 - 65 03/21 [facility] CHEM PANEL Albumin Lvl 3.7 3.5 - 5.0 03/21 [facility] CHEM PANEL Total 7.0 6.4 - 8.4 03/21 MH Protein /2014 [facility] HEMATOLOGY Basophils # 0.0 0.0 - 0.2 03/21 [facility] HEMATOLOGY INR 1.04 0.85 - 03/21 MH 1.17 /2014 [facility] HEMATOLOGY PT 13.6 12.0 - 03/21 MH 14.7 /2014 [facility] HEMATOLOGY PTT 35.2 22.9 - 03/21 MH 35.8 /2014 [facility] CARDIAC BNP 6 <=100 03/21 MH ENZYMES pg/mL /2014 [facility] CARDIAC Troponin-I <0.02 0.00 - 03/11 MH ENZYMES 0.40 /2014 [facility] CARDIAC BNP 31 <=100 03/11 MH ENZYMES pg/mL /2014 [facility] CARDIAC CK MB 0.8 0.5 - 3.6 03/11 MH ENZYMES /2014 [facility] CARDIAC Total CK 70 12 - 191 03/11 MH ENZYMES /2014 [facility] CARDIAC CK MB Index 1.1 0.0 - 2.5 03/11 MH ENZYMES /2014 [facility] CHEM PANEL eGFR 106 03/11 Result Comment: [facility] eGFR is calculated using the CKD-EPI [...] Alk Phos 99 39 - 136 03/11 [facility] CHEM PANEL Bili Total 0.6 0.2 - 1.3 03/11 [place] CHEM PANEL B/C Ratio 11 6 - 25 03/11 [facility] CHEM PANEL AGAP 9.4 10.0 - 03/11 MH 20.0 [facility] CHEM PANEL Globulin 3.1 2.0 - 4.0 03/11 [facility] CHEM PANEL A/G Ratio 1.1 0.7 - 1.6 03/11 [facility] CHEM PANEL Glucose Lvl 73 70 - 99 03/11 [facility] CHEM PANEL BUN 8 7 - 22 03/11 [facility] CHEM PANEL Creatinine 0.7 0.5 - 1.4 03/11 [place] CHEM PANEL Sodium Lvl 143 135 - 145 03/11 [facility] CHEM PANEL Potassium 3.4 3.5 - 5.1 03/11 [place] CHEM PANEL CO2 28 24 - 32 03/11 [facility] CHEM PANEL Chloride Lvl 109 95 - 109 03/11 [facility] CHEM PANEL Calcium Lvl 8.9 8.5 - 10.5 03/11 [facility] CHEM PANEL Total 6.5 6.4 - 8.4 03/11 [facility] CHEM PANEL Albumin Lvl 3.4 3.5 - 5.0 03/11 [facility] CHEM PANEL ALT 30 0 - 65 03/11 [facility] CHEM PANEL AST 21 0 - 37 03/11 [facility] HEMATOLOGY RDW 15.1 11.5 - 03/11 MH 14. [facility] HEMATOLOGY MCHC 33.1 32.0 - 03/11 MH 36.0 [facility] HEMATOLOGY Platelet 190 133 - 450 03/11 [facility] HEMATOLOGY MPV 8.1 7.4 - 10.4 03/11 [facility] HEMATOLOGY Hct 34.6 36.0 - 03/11 MH 48.0 /2014 [facility] HEMATOLOGY Hgb 11.5 12.0 - 03/11 MH 16.0 /2014 [facility] HEMATOLOGY MCH 28.8 27.0 - 03/11 MH 31.0 /2014 [facility] HEMATOLOGY MCV 86.9 80.0 - 03/11 MH 98.0 /2014 [facility] HEMATOLOGY RBC 3.98 4.20 - 03/11 MH 5.40 /2014 [facility] HEMATOLOGY WBC 6.5 3.7 - 10.4 07/ /2014 [facility] HEMATOLOGY PTT 32.8 22.9 - 03/11 MH 35.8 /2014 [facility] HEMATOLOGY PT 13.3 12.0 - 03/11 MH 14.7 /2014 [facility] HEMATOLOGY INR 1.01 0.85 - 03/11 MH 1.17 /2014 [facility] HEMATOLOGY Basophils # 0.0 0.0 - 0.2 03/11 /2014 [facility] HEMATOLOGY Segs-Bands # 3.7 1.5 - 8.1 03/11 /2014 [facility] HEMATOLOGY Eosinophils 0.2 0.0 - 0.5 03/11 # /2014 [facility] HEMATOLOGY Monocytes # 0.6 0.0 - 0.8 03/11 /2014 [facility] HEMATOLOGY Lymphocytes 1.9 1.0 - 5.5 03/11 MH # /2014 [facility] HEMATOLOGY Segs 56.9 45.0 - 03/11 MH 75.0 /2014 [facility] HEMATOLOGY Eosinophils 2.7 0.0 - 4.0 03/11 /2014 [facility] HEMATOLOGY Basophils 0.4 0.0 - 1.0 03/11 /2014 [facility] HEMATOLOGY Monocytes 9.9 2.0 - 12.0 03/11 /2014 [facility] HEMATOLOGY Lymphocytes 30.1 20.0 - 03/11 40.0 /2014 [facility] CARDIAC Troponin-I <0.02 0.00 - 07/08 [place] ENZYMES 0.40 /2014 [facility] CARDIAC Troponin-I <0.02 0.00 - 07/08 [place] ENZYMES 0.40 /2014 [facility] CHEM PANEL A/G Ratio 1.1 0.7 - 1.6 07/ /2014 [facility] CHEM PANEL Globulin 3.5 2.0 - 4.0 07/08 /2014 [facility] CHEM PANEL Bili 0.5 0.0 - 1.0 07/08 [place] Indirect /2014 [facility] CHEM PANEL Bili Direct 0.1 0.0 - 0.3 07/08 [facility] [place] [facility] CHEM PANEL ALT 25 0 - 65 03/05 [facility] CHEM PANEL AST 21 0 - 37 03/05 [facility] CHEM PANEL Albumin Lvl 3.7 3.5 - 5.0 03/05 [facility] CHEM PANEL Alk Phos 119 39 - 136 03/05 [facility] CHEM PANEL Bili Total 0.6 0.2 - 1.3 03/05 [facility] CHEM PANEL Total 7.2 6.4 - 8.4 03/05 [facility] Protein [facility] CHEM PANEL Lipase Lvl 221 73 - 393 03/05 [facility] ELECTROLYT AGAP 12.6 10.0 - 07 [facility] ES 20.0 /2014 [facility] ELECTROLYT eGFR 78 03/05 <sup>1</sup>R [facility] Comment: The Center eGFR is calculated [...] Calcium Lvl 9.6 8.5 - 10.5 03/05 [facility] ELECTROLYT CO2 29 24 - 32 03/05 [facility] ELECTROLYT Potassium 3.6 3.5 - 5.1 03/05 [facility] ELECTROLYT Chloride Lvl 103 95 - 109 03/05 [facility] ELECTROLYT Sodium Lvl 141 135 - 145 03/05 [facility] ELECTROLYT Creatinine 0.8 0.5 - 1.4 07/ [facility] ES Lvl /2014 [facility] ELECTROLYT BUN 9 7 - 22 03/05 [facility] ELECTROLYT Glucose Lvl 96 70 - 99 03/05 <sup>2</sup>I [facility] nterpretive Medical Data: Adult Center reference range values reflect the clinical guidelines
of the [employer]. HEMATOLOGY Lymphocytes 2.6 1.0 - 5.5 03/05 s # /2014 [facility] HEMATOLOGY Monocytes # 0.9 0.0 - 0.8 03/05 [facility] HEMATOLOGY Basophils 0.7 0.0 - 1.0 / [facility] HEMATOLOGY Eosinophils 1.7 0.0 - 4.0 03/05 [facility] HEMATOLOGY Segs-Bands # 6.7 1.5 - 8.1 03/05 [facility] HEMATOLOGY Lymphocytes 25.0 20.0 - 0708 [place] 40.0 /2014 [facility] HEMATOLOGY Segs 64.3 45.0 - 0708 [place] 75.0 [facility] HEMATOLOGY Monocytes 8.3 2.0 - 12.0 03/05 [facility] HEMATOLOGY Eosinophils 0.2 0.0 - 0.5 03/05 s [facility] HEMATOLOGY Basophils # 0.1 0.0 - 0.2 03/05 [facility] HEMATOLOGY MCV 87.7 80.0 - 0708 98.0 /2014 [facility] HEMATOLOGY Hct 39.7 36.0 - 07/08 [place] 48.0 [facility] HEMATOLOGY MPV 8.0 7.4 - 10.4 03/05 [facility] HEMATOLOGY Platelet 216 133 - 450 07 [facility] HEMATOLOGY RDW 14.6 11.5 - 07/08 14.5 [facility] HEMATOLOGY MCHC 32.4 32.0 - 07/08 [place] 36.0 /2014 [facility] HEMATOLOGY MCH 28.4 27.0 - 07/08 [place] 31.0 /2014 [facility] HEMATOLOGY WBC 10.5 3.7 - 10.4 07/ [facility] HEMATOLOGY RBC 4.53 4.20 - 07/08 MH [place] 5.40 /2014 [facility] HEMATOLOGY Hgb 12.9 12.0 - 07/08 [facility] 16.0 /2015 [facility] CHEM PANEL Magnesium 2.0 1.8 - 2.4 02/25 MH Lvl /2014 [facility] CHEM PANEL Phosphorus 3.6 2.5 - 4.5 02/25 [facility] CHEM PANEL eGFR 106 02/25 <sup>1</sup>R esult [facility] Comment: The eGFR is calculated using [...] PANEL AST 17 0 - 37 02/25 [facility] CHEM PANEL Albumin Lvl 3.3 3.5 - 5.0 02/25 [facility] CHEM PANEL A/G Ratio 1.1 0.7 - 1.6 02/25 [facility] CHEM PANEL Total 6.3 6.4 - 8.4 02/25 [facility] CHEM PANEL ALT 21 0 - 65 02/25 [facility] CHEM PANEL Globulin 3.0 2.0 - 4.0 02/25 [facility] CHEM PANEL Bili Total 0.5 0.2 - 1.3 02/25 [facility] CHEM PANEL Alk Phos 119 39 - 136 02/25 [facility] CHEM PANEL B/C Ratio 11 6 - 25 02/25 [facility] CHEM PANEL Calcium Lvl 9.1 8.5 - 10.5 02/25 [facility] CHEM PANEL Glucose Lvl 99 70 - 99 02/25 <sup>3</sup>I nterpretive [facility] Data: Adult reference range values reflect the clinical guidelines
of the [employer]. CHEM PANEL BUN 8 7 - 22 02/25 [facility] CHEM PANEL Sodium Lvl 140 135 - 145 02/25 [facility] CHEM PANEL Creatinine 0.7 0.5 - 1.4 02/25 MH Lv [facility] CHEM PANEL AGAP 8.9 10.0 - 02/25 MH 20.0 [facility] CHEM PANEL Chloride Lvl 107 95 - 109 02/25 [facility] CHEM PANEL CO2 28 24 - 32 02/25 [facility] CHEM PANEL Potassium 3.9 3.5 - 5.1 02/25 MH Lv [facility] HEMATOLOGY Platelet 216 133 - 450 02/25 [facility] HEMATOLOGY MPV 8.8 7.4 - 10.4 02/25 [facility] HEMATOLOGY RDW 14.9 11.5 - 02/25 MH 14.5 /2014 [facility] HEMATOLOGY WBC 5.9 3.7 - 10.4 02/25 [facility] HEMATOLOGY MCV 88.4 80.0 - 02/25 MH 98.0 /2014 [facility] HEMATOLOGY Hct 37.2 36.0 - 02/25 MH 48.0 /2014 [facility] HEMATOLOGY MCH 28.6 27.0 - 02/25 MH 31.0 [facility] HEMATOLOGY MCHC 32.4 32.0 - 02/25 MH 36.0 /2014 [facility] HEMATOLOGY RBC 4.21 4.20 - 02/25 MH 5.40 /2014 [facility] HEMATOLOGY Hgb 12.0 12.0 - 02/25 MH 16.0 /2014 [facility] HEMATOLOGY Lymphocytes 31.9 20.0 - 02/25 MH 40.0 /2014 [facility] HEMATOLOGY Basophils 0.8 0.0 - 1.0 02/25 [facility] HEMATOLOGY Segs-Bands # 3.1 1.5 - 8.1 02/25 [facility] HEMATOLOGY Monocytes 11.6 2.0 - 12.0 02/25 [facility] HEMATOLOGY Eosinophils 2.9 0.0 - 4.0 02/25 [facility] HEMATOLOGY Segs 52.8 45.0 - 02/25 MH 75.0 /2014 [facility] HEMATOLOGY Monocytes # 0.7 0.0 - 0.8 02/25 [facility] HEMATOLOGY Lymphocytes 1.9 1.0 - 5.5 02/25 MH /2014 [facility] HEMATOLOGY Eosinophils 0.2 0.0 - 0.5 02/25 MH # /2014 [facility] CARDIAC Total CK 74 12 - 191 02/25 MH ENZYMES /2014 [facility] CARDIAC CK MB Index 1.2 0.0 - 2.5 02/25 MH ENZYMES /2014 [facility] CARDIAC Troponin-I <0.02 0.00 - 02/25 MH ENZYMES 0.40 [facility] CARDIAC CK MB 0.9 0.5 - 3.6 02/25 MH ENZYMES /2014 [facility] CARDIAC Troponin-I <0.02 0.00 - 02/24 [facility] ENZYMES 0.40 [facility] CARDIAC CK MB 0.7 0.5 - 3.6 02/24 MH ENZYMES /2014 [facility] CARDIAC Total CK 68 - 191 02/24 MH ENZYMES /2014 [facility] CARDIAC CK MB Index 1.0 0.0 - 2.5 02/24 [facility] ENZYMES /2014 [facility] CARDIAC CK MB Index 0.9 0.0 - 2.5 02/24 MH ENZYMES /2014 [facility] CARDIAC Troponin-I <0.02 0.00 - 02/24 MH ENZYMES 0.40 [facility] CARDIAC CK MB 0.7 0.5 - 3.6 02/24 MH ENZYMES /2014 [facility] CARDIAC Total CK 76 - 02/24 [facility] ENZYMES /2014 [facility] CHEM PANEL eGFR 90 02/24 <sup>2</sup>R esult [facility] Comment: The eGFR is calculated using [...] PANEL Globulin 3.1 2.0 - 4.0 02/24 [facility] CHEM PANEL Alk Phos 128 39 - 136 02/24 [facility] CHEM PANEL Bili Total 0.3 0.2 - 1.3 02/24 [facility] CHEM PANEL A/G Ratio 1.1 0.7 - 1.6 02/24 [facility] CHEM PANEL AGAP 7.3 10.0 - 02/24 MH 20.0 /2014 [facility] CHEM PANEL B/C Ratio 12 6 - 25 02/24 [facility] CHEM PANEL Creatinine 0.8 0.5 - 1.4 02/24 MH Lvl [facility] CHEM PANEL Sodium Lvl 140 135 - 145 02/24 [facility] CHEM PANEL Glucose Lvl 88 70 - 99 02/24 <sup>4</sup>I nterpretive [facility] Data: Adult reference range values reflect the clinical guidelines
of the [employer]. CHEM PANEL Potassium 3.3 3.5 - 5.1 02/24 MH [facility] CHEM PANEL Chloride Lvl 106 95 - 109 02/24 [facility] CHEM PANEL BUN 10 7 - 22 02/24 [facility] CHEM PANEL AST 15 0 - 37 02/24 [facility] CHEM PANEL ALT 22 0 - 65 02/24 [facility] CHEM PANEL Calcium Lvl 8.9 8.5 - 10.5 02/24 [facility] CHEM PANEL CO2 30 24 - 32 02/24 [facility] CHEM PANEL Total 6.6 6.4 - 8.4 02/24 [facility] CHEM PANEL Albumin Lvl 3.5 3.5 - 5.0 02/24 [facility] HEMATOLOGY Segs 55.9 45.0 - 02/24 MH 75.0 [facility] HEMATOLOGY Lymphocytes 28.7 20.0 - 02/24 MH 40.0 [facility] HEMATOLOGY Segs-Bands # 3.7 1.5 - 8.1 02/24 [facility] HEMATOLOGY Basophils 0.7 0.0 - 1.0 02/24 [facility] HEMATOLOGY Lymphocytes 1.9 1.0 - 5.5 02/24 MH /2014 [facility] HEMATOLOGY Eosinophils 2.2 0.0 - 4.0 02/24 [facility] HEMATOLOGY Monocytes 12.5 2.0 - 12.0 02/24 [facility] HEMATOLOGY Basophils # 0.0 0.0 - 0.2 02/24 [facility] HEMATOLOGY Eosinophils 0.1 0.0 - 0.5 02/24 MH # /2015 [facility] HEMATOLOGY Monocytes # 0.8 0.0 - 0.8 02/24 MH /2014 [facility] MPV 8.8 7.4 - 10.4 02/24 /2014 [facility] MCH 28.1 27.0 - 02/24 MH 31.0 /2014 [facility] HEMATOLOGY RDW 14.8 11.5 - 02/24 MH 14.5 /2014 [facility] MCHC 32.2 32.0 - 02/24 MH 36.0 /2014 [facility] Platelet 207 133 - 450 02/24 /2014 [facility] HEMATOLOGY Hgb 11.4 12.0 - 02/24 MH 16.0 /2014 [facility] HEMATOLOGY RBC 4.04 4.20 - 02/24 MH 5.40 /2014 [facility] WBC 6.5 3.7 - 10.4 02/24 /2014 [facility] Hct 35.3 36.0 - 02/24 MH 48.0 /2014 [facility] MCV 87.2 80.0 - 02/24 MH 98.0 /2014 [facility] CARDIAC BNP 6 <=100 02/17 <sup>5</sup>I ENZYMES pg/mL /2014 nterpretive [facility] Data: Elevated results are in line with increasing severity of
con gestive heart failure. Minor elevations between 100 and 300
may be seen with Myocardial Ischemia, Sodium retaining drugs,
an d compensated/t reated heart failure. CARDIAC Troponin-I <0.02 0.00 - 02/17 ENZYMES 0.40 /2014 [facility] CARDIAC CK MB 1.0 0.5 - 3.6 02/17 ENZYMES /2014 [facility] CARDIAC Total CK 77 12 - 191 02/17 ENZYMES /2014 [facility] CHEM PANEL Magnesium 1.8 1.8 - 2.4 02/17 Lvl /2014 [facility] CHEM PANEL eGFR 111 02/17 <sup>1</sup>R esult [facility] Comment: The eGFR is calculated using [...] Chloride Lvl 111 95 - 109 02/17 [facility] CHEM PANEL Potassium 3.8 3.5 - 5.1 02/17 Lvl [facility] CHEM PANEL Sodium Lvl 144 135 - 145 02/17 [facility] CHEM PANEL Calcium Lvl 8.6 8.5 - 10.5 02/17 [facility] CHEM PANEL AGAP 11.8 10.0 - 02/17 MH 20.0 [facility] CHEM PANEL CO2 25 24 - 32 02/17 [facility] CHEM PANEL Creatinine 0.6 0.5 - 1.4 02/17 Lvl [facility] CHEM PANEL BUN 6 7 - 22 02/17 [facility] CHEM PANEL Glucose Lvl 72 70 - 99 02/17 <sup>3</sup>I nterpretive [facility] Data: Adult reference range values reflect the clinical guidelines
of the [employer]. HEMATOLOGY Hgb 11.5 12.0 - 02/17 MH 16.0 [facility] LIPIDS HDL 51 >=61 mg/dL 02/17 [facility] LIPIDS VLDL 17 02/17 [facility] LIPIDS LDL 96 <=99 mg/dL 02/17 (Calculated) [facility] LIPIDS Chol 164 <=199 02/17 mg/dL /2014 [facility] LIPIDS Trig 84 <=149 02/17 mg/dL /2014 [facility] LIPIDS CHD Risk 3.22 3.90 - 02/17 MH 5.80 /2014 [facility] SPECIAL Hgb A1C 5.8 <=5.6 % 02/17 CHEMISTRY /2014 [facility] CARDIAC Troponin-I <0.02 0.00 - 02/17 ENZYMES 0.40 /2014 [facility] CARDIAC Total CK 92 12 - 191 02/17 ENZYMES /2014 [facility] CARDIAC CK MB 1.2 0.5 - 3.6 02/17 ENZYMES /2014 [facility] CARDIAC CK MB 1.2 0.5 - 3.6 02/16 ENZYMES /2014 [facility] CARDIAC CK MB Index 1.3 0.0 - 2.5 02/16 ENZYMES /2014 [facility] CARDIAC Total CK 93 12 - 191 02/16 ENZYMES /2014 [facility] CARDIAC Troponin-I <0.02 0.00 - 02/16 ENZYMES 0.40 /2014 [facility] CARDIAC BNP 4 <=100 02/16 <sup>6</sup>I ENZYMES pg/mL /2014 nterpretive [facility] Data: Elevated results are in line with increasing severity of
con gestive heart failure. Minor elevations between 100 and 300
may be seen with Myocardial Ischemia, Sodium retaining drugs,
an d compensated/t reated heart failure. CHEM PANEL Lipase Lvl 307 73 - 393 02/16 [facility] CHEM PANEL A/G Ratio 1.0 0.7 - 1.6 02/16 [facility] CHEM PANEL Globulin 3.6 2.0 - 4.0 02/16 [facility] CHEM PANEL Bili 0.4 0.0 - 1.0 02/16 [facility] CHEM PANEL Bili Direct 0.1 0.0 - 0.3 02/16 [facility] CHEM PANEL Bili Total 0.5 0.2 - 1.3 02/16 [facility] CHEM PANEL Total 7.3 6.4 - 8.4 02/16 Protein [facility] CHEM PANEL Alk Phos 150 39 - 136 02/16 [facility] CHEM PANEL AST 15 0 - 37 02/16 [facility] CHEM PANEL ALT 21 0 - 65 02/16 [facility] CHEM PANEL Albumin Lvl 3.7 3.5 - 5.0 02/16 [facility] CHEM PANEL Phosphorus 3.1 2.5 - 4.5 02/16 [facility] CHEM PANEL Magnesium 1.9 1.8 - 2.4 02/16 Lvl /2014 [facility] CHEM PANEL eGFR 90 02/16 <sup>2</sup>R esult [facility] Comment: The eGFR is calculated using [...] Calcium Lvl 9.0 8.5 - 10.5 02/16 [facility] CHEM PANEL CO2 28 24 - 32 02/16 [facility] CHEM PANEL Chloride Lvl 107 95 - 109 02/16 [facility] CHEM PANEL Creatinine 0.8 0.5 - 1.4 02/16 [facility] CHEM PANEL BUN 11 7 - 22 02/16 [facility] CHEM PANEL Potassium 3.5 3.5 - 5.1 02/16 [facility] CHEM PANEL Sodium Lvl 139 135 - 145 02/16 [facility] CHEM PANEL Glucose Lvl 76 70 - 99 02/16 <sup>4</sup>I nterpretive [facility] Data: Adult reference range values reflect the clinical guidelines
of the [employer]. CHEM PANEL AGAP 7.5 10.0 - 02/16 MH 20.0 [facility] HEMATOLOGY Eosinophils 3.3 0.0 - 4.0 02/16 [facility] HEMATOLOGY Monocytes 9.1 2.0 - 12.0 02/16 [facility] HEMATOLOGY Lymphocytes 28.9 20.0 - 02/16 MH 40.0 /2014 [facility] HEMATOLOGY Segs 58.3 45.0 - 02/16 MH 75.0 [facility] HEMATOLOGY Segs-Bands # 3.8 1.5 - 8.1 02/16 [facility] HEMATOLOGY Basophils 0.4 0.0 - 1.0 02/16 [facility] HEMATOLOGY Monocytes # 0.6 0.0 - 0.8 02/16 [facility] HEMATOLOGY Lymphocytes 1.9 1.0 - 5.5 02/16 MH /2014 [facility] HEMATOLOGY Eosinophils 0.2 0.0 - 0.5 02/16 MH # /2015 [facility] HEMATOLOGY Basophils # 0.0 0.0 - 0.2 02/16 /2014 [facility] HEMATOLOGY PTT 36.0 22.9 - 02/16 <sup>8</sup>I 35.8 /2014 nterpretive [facility] Data: Heparin Therapeutic Range: 57 - 92 Seconds HEMATOLOGY PT 12.9 12.0 - 02/16 14.7 /2014 [facility] HEMATOLOGY INR 0.97 0.85 - 02/16 <sup>7</sup>I 1.17 /2014 nterpretive [facility] Data: RECOMMENDED RANGES FOR PROTIME INR:
2.0-3.0 for most medical and surgical thromboemboli c states.
2.5-3.5 for artificial heart valves and recurrent embolism.<br/ >
INR SHOULD BE USED ONLY FOR PATIENTS ON STABLE ANTICOAGULANT THERAPY. HEMATOLOGY Platelet 225 133 - 450 02/16 /2014 [facility] HEMATOLOGY RDW 14.7 11.5 - 02/16 14.5 /2014 [facility] HEMATOLOGY MPV 8.7 7.4 - 10.4 02/16 /2014 [facility] HEMATOLOGY MCHC 32.6 32.0 - 02/16 36.0 /2014 [facility] HEMATOLOGY Hct 39.5 36.0 - 02/16 48.0 /2014 [facility] HEMATOLOGY MCV 87.3 80.0 - 02/16 98.0 /2014 [facility] MCH 28.4 27.0 - 02/16 31.0 /2014 [facility] RBC 4.52 4.20 - 02/16 5.40 /2014 [facility] HEMATOLOGY Hgb 12.9 12.0 - 02/16 16.0 /2014 [facility] HEMATOLOGY WBC 6.5 3.7 - 10.4 02/16 /2014 [facility] MYOGLOBIN Myoglobin 46 25 - 72 02/16 /2014 [facility] CARDIAC BNP 15 <=100 12/22 <sup>3</sup>I [place]YM[place] pg/mL /2013 nterpretive [facility] Data: Elevated results are in line with increasing severity of
con gestive heart failure. Minor elevations between 100 and 300
may be seen with Myocardial Ischemia, Sodium retaining drugs,
an d compensated/t reated heart failure. CARDIAC Troponin-I <0.02 0.00 - 12/22 ENZYMES 0.40 /2013 [facility] CARDIAC Total CK 80 12 - 191 12/22 ENZYMES [facility] CARDIAC CK MB <0.5 0.5 - 3.6 12/22 ENZYMES [facility] CARDIAC CK MB Index <0.6 0.0 - 2.5 12/22 ENZYMES [facility] CHEM PANEL eGFR 112 12/22 <sup>1</sup>R esult [facility] Comment: The eGFR is calculated using [...] PANEL Globulin 3.6 2.0 - 4.0 12/22 [facility] CHEM PANEL B/C Ratio 17 6 - 25 12/22 [facility] CHEM PANEL A/G Ratio 1.1 0.7 - 1.6 12/22 [facility] CHEM PANEL Glucose Lvl 101 70 - 99 12/22 <sup>2</sup>I nterpretive [facility] Data: Adult reference range values reflect the clinical guidelines
of the [employer]. CHEM PANEL ALT 34 0 - 65 12/22 [facility] CHEM PANEL Albumin Lvl 3.9 3.5 - 5.0 12/22 [facility] CHEM PANEL Alk Phos 89 39 - 136 12/22 [facility] CHEM PANEL AST 22 0 - 37 12/22 [facility] CHEM PANEL Bili Total 0.6 0.2 - 1.3 12/22 [facility] CHEM PANEL AGAP 5.5 10.0 - 12/22 MH 20.0 /2013 [facility] CHEM PANEL Creatinine 0.6 0.5 - 1.4 12/22 [facility] CHEM PANEL BUN 10 7 - 22 12/22 [facility] CHEM PANEL Potassium 3.5 3.5 - 5.1 12/22 [facility] CHEM PANEL Sodium Lvl 140 135 - 145 12/22 [facility] CHEM PANEL Chloride Lvl 109 95 - 109 12/22 [facility] CHEM PANEL CO2 29 24 - 32 12/22 [facility] CHEM PANEL Total 7.5 6.4 - 8.4 12/22 [facility] CHEM PANEL Calcium Lvl 9.2 8.5 - 10.5 12/22 [facility] DRUG U Opiate Scr Negative Negative 12/22 SCREEN *NA* [facility] (12/22/13 4:17 PM) DRUG U Phencyc Negative Negative 12/22 SCREEN Scr *NA* [facility] (12/22/13 4:17 PM) DRUG UDS Note See Note 4 12/22 <sup>4</sup>I MH SCREEN *NA* nterpretive [facility] (12/22/13 4:17 PM) Data: Drugs reported as positive have not been confirmed by a second
pa thod and should be used for medical [...] Negative Negative 12/22 SCREEN Scr *NA* /2013 [facility] (12/22/13 4:17 PM) DRUG U Keyla Scr Negative Negative 12/22 SCREEN *NA* [facility] (12/22/13 4:17 PM) DRUG U Amph Scr Negative Negative 12/22 SCREEN *NA* [facility] (12/22/13 4:17 PM) DRUG U Cannab Scr Negative Negative 12/22 SCREEN *NA* [facility] (12/22/13 4:17 PM) DRUG U Cocaine Negative Negative 12/22 SCREEN Scr *NA* [facility] (12/22/13 4:17 PM) HEMATOLOGY PTT 35.2 22.9 - 12/22 <sup>6</sup>I 35.8 /2013 nterpretive [facility] Data: Heparin Therapeutic Range: 57 - 92 Seconds HEMATOLOGY PT 12.2 12.0 - 12/22 14.7 [facility] HEMATOLOGY INR 0.91 0.85 - 12/22 <sup>5</sup>I 1.17 nterpretive [facility] Data: RECOMMENDED RANGES FOR PROTIME INR:
2.0-3.0 for most medical and surgical thromboemboli c states.
2.5-3.5 for artificial heart valves and recurrent embolism.<br/ >
INR SHOULD BE USED ONLY FOR PATIENTS ON STABLE ANTICOAGULANT THERAPY. HEMATOLOGY MPV 8.4 7.4 - 10.4 12/22 [facility] HEMATOLOGY MCH 29.2 27.0 - 12/22 31.0 /2013 [facility] HEMATOLOGY MCHC 33.4 32.0 - 12/22 36.0 /2013 [facility] HEMATOLOGY RDW 14.5 11.5 - 12/22 14.5 [facility] HEMATOLOGY Platelet 219 133 - 450 12/22 [facility] HEMATOLOGY Hct 41.6 36.0 - 12/22 48.0 /2013 [facility] HEMATOLOGY MCV 87.5 81.0 - 12/22 99.0 /2013 [facility] HEMATOLOGY RBC 4.76 4.20 - 12/22 5.40 /2013 [facility] HEMATOLOGY Hgb 13.9 12.0 - 12/22 16.0 /2013 [facility] HEMATOLOGY WBC 8.5 3.7 - 10.4 12/22 /2013 [facility] HEMATOLOGY Eosinophils 0.2 0.0 - 0.5 12/22 MH # /2014 [facility] HEMATOLOGY Basophils # 0.0 0.0 - 0.2 12/22 /2013 [facility] HEMATOLOGY Segs 66.1 45.0 - 12/22 MH 75.0 /2013 [facility] HEMATOLOGY Monocytes 6.1 2.0 - 12.0 12/22 /2013 [facility] HEMATOLOGY Lymphocytes 25.0 20.0 - 12/22 MH 40.0 /2013 [facility] HEMATOLOGY Eosinophils 2.4 0.0 - 4.0 12/22 /2013 [facility] HEMATOLOGY Basophils 0.4 0.0 - 1.0 12/22 /2013 [facility] HEMATOLOGY Lymphocytes 2.1 1.0 - 5.5 12/22 MH # /2013 [facility] HEMATOLOGY Monocytes # 0.5 0.0 - 0.8 12/22 /2013 [facility] HEMATOLOGY Segs-Bands # 5.6 1.5 - 8.1 12/22 /2013 [facility] URINE AND UA WBC 3-5 /HPF None Seen 12/22 STOOL /HPF /2013 [facility] URINE AND UA Sq Epi Occasional Few /LPF 12/22 STOOL /LPF /2013 [facility] URINE AND UA Rare /HPF None Seen 12/22 STOOL Trichomonas /HPF /2013 [facility] URINE AND UA Bacteria Few /HPF None Seen 12/22 STOOL /HPF /2013 [facility] URINE AND UA Blood Trace Negative 12/22 STOOL *ABN* /2013 [facility] (12/22/13 4:17 PM) URINE AND UA Bili Negative Negative 12/22 STOOL *NA* [facility] (12/22/13 4:17 PM) URINE AND UA 0.2 0.1 - 1.0 12/22 STOOL Urobilinogen /2013 [facility] URINE AND UA Leuk Est Small Negative 12/22 STOOL *ABN* [facility] (12/22/13 4:17 PM) URINE AND UA Ketones Negative Negative 12/22 STOOL *NA* [facility] (12/22/13 4:17 PM) URINE AND UA Glucose Negative Negative 12/22 [facility]OL (12/22/13 4:17 PM) /2013 [facility] est URINE AND UA Turbidity Clear Clear 12/22 STOOL (12/22/13 4:17 PM) /2013 [facility] est URINE AND UA Color Yellow Yellow 12/22 STOOL *NA* [facility] (12/22/13 4:17 PM) URINE AND UA pH 6.0 5.0 - 8.0 12/22 [facility] [place] URINE AND UA Spec Grav 1.015 <=1.030 12/22 STOOL [facility] URINE AND UA Protein Negative Negative 12/22 STOOL (12/22/13 4:17 PM) [facility] est URINE AND UA Nitrite Negative Negative 12/22 STOOL (12/22/13 4:17 PM) [facility] CHEM PANEL Phosphorus 2.7 2.5 - 4.5 12/17 [facility] CHEM PANEL Magnesium 2.2 1.8 - 2.4 12/17 [facility] ELECTROLYT AGAP 10.5 10.0 - 12/17 [facility] ES 20.0 [facility] ELECTROLYT eGFR 91 12/17 <sup[place]1</sup>[place] [facility] Medical Comment: The [place] eGFR is calculated using the CKD-EPI formula. [...] ELECTROLYT BUN 10 7 - 22 12/17 [facility] ELECTROLYT Creatinine 0.8 0.5 - 1.4 12/17 [facility] l [facility] ELECTROLYT Sodium Lvl 142 135 - 145 12/17 [facility] ELECTROLYT Glucose Lvl 87 70 - 99 12/17 <sup>3</sup>I [facility] nterpretive Medical Data: Adult Center reference range values reflect the clinical guidelines
of the [employer]. ELECTROLYT CO2 30 24 - 32 12/17 [facility] ES [facility] ELECTROLYT Potassium 4.5 3.5 - 5.1 12/17 [facility] ES Lvl [facility] ELECTROLYT Chloride Lvl 106 95 - 109 12/[place] [facility] ELECTROLYT Calcium Lvl 8.6 8.5 - 10.5 12/17 [place] [facility] HEMATOLOGY INR 0.97 0.85 - 12/17 [...] [facility] HEMATOLOGY PT 12.8 12.0 - 12/17 14.7 [facility] HEMATOLOGY Hgb 13.7 12.0 - 12/17 16.0 [facility] HEMATOLOGY RBC 4.88 4.20 - 12/17 [place] 5.40 /2013 [facility] HEMATOLOGY MCH 28.1 27.0 - 12/17 31.0 [facility] HEMATOLOGY Hct 42.1 36.0 - 12/17 [place] 48.0 /2013 [facility] HEMATOLOGY MCV 86.4 81.0 - 12/17 [place] 99.0 /2013 [facility] HEMATOLOGY RDW 14.3 11.5 - 12/17 14.5 [facility] HEMATOLOGY MCHC 32.5 32.0 - 12/17 [place] 36.0 /2013 [facility] HEMATOLOGY MPV 8.4 7.4 - 10.4 12/17 [facility] HEMATOLOGY Platelet 197 133 - 450 12/17 [facility] HEMATOLOGY WBC 7.2 3.7 - 10.4 12/17 [facility] HEMATOLOGY Monocytes 10.7 2.0 - 12.0 12/17 [facility] HEMATOLOGY Lymphocytes 27.2 20.0 - 12/17 [place] 40.0 /2013 [facility] HEMATOLOGY Lymphocytes 1.9 1.0 - 5.5 12/17 [place] # [facility] HEMATOLOGY Eosinophils 3.2 0.0 - 4.0 12/[place] [facility] HEMATOLOGY Basophils 0.6 0.0 - 1.0 12/17 [facility] HEMATOLOGY Segs-Bands # 4.2 1.5 - 8.1 12/17 [facility] HEMATOLOGY Eosinophils 0.2 0.0 - 0.5 12/17 [place] # [facility] HEMATOLOGY Monocytes # 0.8 0.0 - 0.8 12/17 [facility] HEMATOLOGY Segs 58.3 45.0 - 12/17 [place] 75.0 [facility] PARATHYROI Ca Norm WB 1.11 1. - 12/17 [facility] D PROFILE 1. [facility] PARATHYROI Ca Ion WB 1.17 1. - 12/17 [facility] D PROFILE 1. [facility] DRUG U Benzodia Negative Negative 12/17 [facility] SCREEN Scr *NA* Medical (12/16/13 10:45 PM) Cente r DRUG U Cannab Scr Positive Negative 12/17 [facility] SCREEN *ABN* Medical (12/16/13 10:45 PM) Cente r DRUG U Cocaine Negative Negative 12/17 [facility] SCREEN Scr *NA* Medical (12/16/13 10:45 PM) Cente r DRUG U Phencyc Negative Negative 12/17 [facility] SCREEN Scr *NA* Medical (12/16/13 10:45 PM) Cente r DRUG U Opiate Scr Negative Negative 12/17 [facility] SCREEN *NA* Medical (12/16/13 10:45 PM) Cente r DRUG UDS Note See Note 6 12/17 <sup>6</sup>I [place] SCREEN (12/16/13 10:45 PM) /2013 nterpretive M edical Data: Drugs Center reported as positive have not been confirmed by a second
pa thod and should be used for medical [...] DRUG U Amph Scr Negative Negative 12/17 [facility] SCREEN *NA* /2013 Medical (12/16/13 10:45 PM) Cente r DRUG U Keyla Scr Negative Negative 12/17 [facility] SCREEN *NA* /2013 Medical (12/16/13 10:45 PM) Cente r CARDIAC Total CK 56 12 - 191 12/17 [facility] ENZYMES /2013 [facility] CARDIAC Troponin-T <0.010 0.000 - 12/17 [facility] ENZYMES 0.100 [facility] CARDIAC Troponin-I <0.02 0.00 - 12/17 [facility] ENZYMES 0.40 /2013 [facility] CARDIAC BNP 13 <=100 12/17 <sup>5</sup>I [facility] ENZYMES pg/mL /2013 nterpretive Medical Data: Center Elevated results are in line with increasing severity of
con gestive heart failure. Minor elevations between 100 and 300
may be seen with Myocardial Ischemia, Sodium retaining drugs,
an d compensated/t reated heart failure. LIPIDS VLDL 18 12/17 [place] /2013 [facility] LIPIDS LDL 88 <=99 mg/dL 12/17 [facility] (Calculated) [facility] LIPIDS Trig 88 <=149 12/17 [facility] mg/dL /2013 [facility] LIPIDS CHD Risk 3.08 3.90 - 12/17 [place] 5.80 /2013 [facility] LIPIDS Chol 157 <=199 12/17 [facility] mg/dL [facility] LIPIDS HDL 51 >=61 mg/dL 12/17 [facility] SPECIAL Hgb A1C 5.3 <=5.6 % 12/17 [facility] CHEMISTRY [facility] THYROID TSH 0.870 0.360 - 12/17 [facility] PANEL 3.740 /2013 [facility] CARDIAC Total CK 42 12 - 191 12/16 [facility] ENZYMES [facility] CARDIAC Troponin-I <0.02 0.00 - 12/16 [facility] ENZYMES 0.40 [facility] CHEM PANEL Lactic Acid 1.3 0.5 - 2.2 12/16 [place] L[place] /2013 [facility] HEMATOLOGY PT 11.8 12.0 - 12/16 [place] 14.7 /2013 [facility] HEMATOLOGY INR 0.87 0.85 - 12/16 <sup>8</sup>I [place] 1.17 /2013 nterpretive Medical Data: Center RECOMMENDED RANGES FOR PROTIME INR:
2.0-3.0 for most medical and surgical thromboemboli c states.
2.5-3.5 for artificial heart valves and recurrent embolism.<br/ >
INR SHOULD BE USED ONLY FOR PATIENTS ON STABLE ANTICOAGULANT THERAPY. HEMATOLOGY PTT 31.2 22.9 - 12/16 <sup>10</sup> [place] 35.8 /2013 Interpretive Medical Data: Heparin Center Therapeutic Range: 57 - 92 [facility] HEMATOLOGY RBC 4.69 4.20 - 12/16 [place] 5.40 /2013 [facility] HEMATOLOGY WBC 6.6 3.7 - 10.4 12/16 [facility] HEMATOLOGY Hct 40.5 36.0 - 12/16 [place] 48.0 /2013 [facility] HEMATOLOGY MCV 86.4 81.0 - 12/16 [place] 99.0 /2013 [facility] HEMATOLOGY Hgb 13.6 12.0 - 12/16 [place] 16.0 /2013 [facility] HEMATOLOGY MCH 29.0 27.0 - 12/16 [place] 31.0 /2013 [facility] HEMATOLOGY MCHC 33.6 32.0 - 12/16 [place] 36.0 [facility] HEMATOLOGY Platelet 202 133 - 450 12/16 [facility] HEMATOLOGY RDW 13.4 11.5 - 12/16 14.5 [facility] HEMATOLOGY MPV 8.6 7.4 - 10.4 12/16 [facility] HEMATOLOGY Monocytes # 0.8 0.0 - 0.8 12/16 [facility] HEMATOLOGY Basophils # 0.0 0.0 - 0.2 12/16 [facility] HEMATOLOGY Monocytes 12.1 2.0 - 12.0 12/16 [facility] HEMATOLOGY Eosinophils 3.8 0.0 - 4.0 12/16 [facility] HEMATOLOGY Basophils 0.6 0.0 - 1.0 12/16 [facility] HEMATOLOGY Segs-Bands # 3.9 1.5 - 8.1 12/16 [facility] HEMATOLOGY Eosinophils 0.3 0.0 - 0.5 12/16 s [facility] HEMATOLOGY Lymphocytes 1.6 1.0 - 5.5 12/16 s [facility] HEMATOLOGY Lymphocytes 25.0 20.0 - 12/16 [place] 40.0 [facility] HEMATOLOGY Segs 58.5 45.0 - 12/16 75.0 [facility] CHEM PANEL eGFR 79 12/16 <sup>2</sup>R [...] PANEL Creatinine 0.9 0.5 - 1.4 12/16 [facility] CHEM PANEL Sodium Lvl 142 135 - 145 12/16 [facility] CHEM PANEL Potassium 4.5 3.5 - 5.1 12/16 [facility] CHEM PANEL Chloride Lvl 107 95 - 109 12/16 [facility] CHEM PANEL Glucose Lvl 78 70 - 99 12/16 <sup>4</sup>I nterpretive Medical Data: Adult Center reference range values reflect the clinical guidelines
of the [employer]. CHEM PANEL BUN 11 7 - 22 12/16 [facility] CHEM PANEL A/G Ratio 1.0 0.7 - 1.6 12/16 [facility] CHEM PANEL B/C Ratio 12 6 - 25 12/16 [facility] CHEM PANEL Globulin 3.6 2.0 - 4.0 12/16 [facility] CHEM PANEL AGAP 16.5 10.0 - 12/16 20.0 [facility] CHEM PANEL Total 7.2 6.4 - 8.4 12/16 Protein [facility] CHEM PANEL AST 19 0 - 37 12/16 [facility] CHEM PANEL CO2 23 24 - 32 12/16 [facility] CHEM PANEL Calcium Lvl 9.2 8.5 - 10.5 12/16 [facility] CHEM PANEL Bili Total 0.3 0.2 - 1.3 12/16 [facility] CHEM PANEL Albumin Lvl 3.6 3.5 - 5.0 12/16 [facility] CHEM PANEL Alk Phos 87 39 - 136 12/16 [facility] CHEM PANEL ALT 31 0 - 65 12/16 [facility] CARDIAC Total CK 56 12 - 191 12/16 [facility] ENZYMES [facility] CARDIAC Troponin-I <0.02 0.00 - 12/16 [facility] ENZYMES 0.40 [facility] CARDIAC Troponin-I <0.02 0.00 - 11/08 [facility] ENZYMES 0.40 /2013 [facility] CARDIAC Total CK 49 12 - 191 11/08 [place] ENZYMES /2013 [facility] CARDIAC Troponin-T <0.010 0.000 - 11/08 [place] ENZYMES 0.100 /2013 [facility] MYOGLOBIN Myoglobin 36 25 - 72 11/08 /2013 [facility] CARDIAC Troponin-T <0.010 0.000 - 11/08 [place] ENZYMES 0.100 /2013 [facility] CARDIAC Total CK 54 12 - 191 11/08 /2013 [facility] CARDIAC Troponin-I <0.02 0.00 - 11/08 [facility] ENZYMES 0.40 /2013 [facility] CARDIAC Troponin-I <0.02 0.00 - 11/08 [facility] ENZYMES 0.40 [facility] ELECTROLYT AGAP 11.4 10.0 - 11/08 [facility] ES 20.0 [facility] ELECTROLYT eGFR 69 11/08 <sup>1</sup>[place] [facility]: The Center eGFR is calculated [...] 9.2 8.5 - 10.5 11/08 [place] [facility] ELECTROLYT CO2 27 24 - 32 11/08 [facility] ELECTROLYT Chloride Lvl 105 95 - 109 11/08 [place] [facility] ELECTROLYT Potassium 3.4 3.5 - 5.1 11/08 [facility] ES Lvl [facility] ELECTROLYT Sodium Lvl 140 135 - 145 11/08 [facility] ELECTROLYT BUN 11 7 - 22 11/08 [facility] Center ELECTROLYT Glucose Lvl 84 70 - 99 11/08 <sup>2</sup>I nterpretive Medical Data: Adult Center reference range values reflect the clinical guidelines
of the [employer]. ELECTROLYT Creatinine 1.0 0.5 - 1.4 11/08 [facility] ES Lvl [facility] HEMATOLOGY Basophils # 0.1 0.0 - 0.2 11/08 [facility] HEMATOLOGY Eosinophils 0.2 0.0 - 0.5 11/08 [place] [facility] HEMATOLOGY Monocytes # 0.8 0.0 - 0.8 11/08 [facility] HEMATOLOGY Segs 72.5 45.0 - 11/08 [place] 75.0 Medical [place] HEMATOLOGY Lymphocytes 17.0 20.0 - 11/08 40.0 Medical [place] HEMATOLOGY Eosinophils 2.1 0.0 - 4.0 11/08 Medical [place] HEMATOLOGY Monocytes 7.8 2.0 - 12.0 11/08 [facility] HEMATOLOGY Segs-Bands # 7.6 1.5 - 8.1 11/08 [facility] HEMATOLOGY Basophils 0.6 0.0 - 1.0 11/08 [facility] HEMATOLOGY Lymphocytes 1.8 1.0 - 5.5 11/08 s [facility] HEMATOLOGY MPV 8.7 7.4 - 10.4 11/08 [facility] HEMATOLOGY RDW 14.0 11.5 - 11/08 [place] 14.5 [facility] HEMATOLOGY Platelet 191 133 - 450 11/08 Medical [place] HEMATOLOGY MCHC 33.9 32.0 - 11/08 [place] 36.0 /2013 [facility] HEMATOLOGY RBC X 10x6 4.65 4.20 - 11/08 [place] 5.40 /2013 Medical [place] HEMATOLOGY WBC X 10x3 10.6 3.7 - 10.4 11/08 [facility] HEMATOLOGY MCH 29.3 27.0 - 11/08 [place] 31.0 [facility] HEMATOLOGY MCV 86.6 81.0 - 11/08 MH [place] 99.0 /2014 [facility] HEMATOLOGY Hgb 13.6 12.0 - 11/08 [facility] 16.0 /2014 [facility] HEMATOLOGY Hct 40.2 36.0 - 11/08 [facility] 48.0 /2014 [facility] Pathology Reports No Data Provided for This Section Diagnostic Reports Report Value Date Source ED Abdomen/Pelvis IV Patient Name: LUCIUS YEPEZ 01/19/2017 [facility] contrast only CT : 1950; Age: 66 years Female MR: [id number] Study: ED Abdomen/Pelvis IV contrast only CT [...] hours. 5. Presumed multi fibroid uterus. SL: [id number] Chest 1view DX EXAM: XR CHEST 1 [...] 2 view chest compared to 11/06/2016. 09/2016 [facility] History: Chest pain and cough Comments: The trachea is midline. The cardiomediastinal si lhouette is normal in size. No pneumonia. No pleural effusions or pneumothorax. Impression: No acute cardiopulmonary disease. Chest 2 views DX Patient Name: LUCIUS YEPEZ 11/06/2016 [facility] : 1950; Age: 66 years y/o Female MR: [id number] Study: Chest 2 views DX 11/06/2016 5:38 PM [employer] Ordering Physician: Ciro Cordova Comparison: 10/10/2016 09/03/2015 [...] SPINE WITHOUT AND WITH CONTR AST 10/10/2016 [facility] contrast MRI DATE: 10/10/2016 at 4:27 PM. [...] OF THE THORACIC SPINE WITHOUT AND WI CONTRAST 10/10/2016 [facility] [place] [facility] contrast MRI DATE: 10/10/2016 at 4:27 PM. [...] canal. There is no neural foraminal compromise. [id number]: The interverte bral discs are well-maintained. There [...] DX EXAM: XR CHEST 2 VIEWS 10/10/2016 [facility] DATE: 10/10/2016 12:16 PM [employer] CONSULTANT Jose ter INDICATION: Chest pain COMPARISON: Chest [...] views DX Chest 2 views DX 09/14/2016 [facility] [place] nn CLINICAL HISTORY: Cough and [...] contrast CT CT HEAD WITHOUT CONTRAST 04/14/2016 [facility] DATE: 04/14/2016 at 12:[address] [...] Pulmonary Study: Chest Pulmonary Embolism CTA 03/11/2016 [facility] Embolism CTA Age: 65 years y/o Female [...] pulmonary artery noted on previous exams. SL: [id number] Abdomen AP DX Clinical Indication: Vomiting; 03/11/2016 [facility] Comparison: None 1 view abdomen Nonobstructive bowel gas pat tern. Moderate amount of stool throughout the colon. No pathologic calcifications are evident. IMPRESSION: Negative. SL: [id number] Chest 1view DX Chest 1view DX 03/11/2016 [facility] CLINICAL HISTORY:Chest pain COMPARISON: 02/29/2016 FINDINGS: Limited AP portable study. Lungs are reasonably well in flated. No consolidation, effusion or pneumothorax. Trachea is midline. Cardiomediastinal silhouette is within normal li mits. No pulmonary edema. No significant bony abnormality is noted. IMPRESSION: No acute abnormality is noted in the chest. SL: [id number] Chest 2 views DX Study: Chest 2 views DX 02/29/2016 [facility] Age Female 65 years old Clinical Indication: [...] IMPRESSION: 1. No acute abnormality noted. SL: [id number] Brain wo contrast CT CLINICAL HISTORY: Vertigo. 09/04/2015 [facility] CT brain without contrast. Comparison 05/02/2015 [...] 1view DX CHEST RADIOGRAPH SINGLE VIEW 09/03/2015 [facility] INDICATION: Dyspnea COMPARISON: Chest radiograph 07/15/2015 [...] 1view DX EXAM: CHEST 1 VIEW 05/18/2015 [facility] DATE: May 18, 2015 01:38:00 PM INDICATION: Chest pain COMPARISON: Chest radiograph 05/09/2015 TECHNIQUE: Single AP view of the chest FINDINGS: The lungs are hugo ar. The costophrenic sulci are sharp without effusion. The heart size and mediastinal contours are within normal limits. Aortic calcifications are present. IMPRESSION: No acute cardiopulmonary disease daniel ntified. Chest 2 views DX EXAM: CHEST 2 VIEWS 05/09/2015 [facility] DATE: May 09, 2015 12:41:00 PM INDICATION: [...] CT of the brain without contrast. 11/2014 [facility] DATE: 05/02/2015 CLINICAL HISTORY: Head trauma. COMPARISON: CT 02/25/2015. TECHNIQUE: Axial images of jb rosario brain were obtained in a helical scanner [...] views DX EXAM: CHEST 2 VIEWS 05/02/2015 [facility] DATE: May 02, 2015 05:44:24 PM INDICATION: Chest pain COMPARISON: Chest radiograph 03/21/2015 TECHNIQUE: Frontal and lateral chest radiographs FINDINGS: The heart size is within normal limits. The lungs are clear. The costophrenic sulci are sharp without effusion. The osseous structures are unremarkable. IMPRESSION: No acute abnormality identified. Knee 3 views DX HISTORY: Pain, [facility] 4 [facility]. No fracture subluxation or acute abnormality. No significant joint effusion. IMPRESSION: Negative. SL:14 Spine lumbar series CLINICAL HISTORY: Pain post trauma. 04/11/[address] [place] [address] DX Lumbar spine [address] abdomen and pelvis 03/24/2015. Grade 1 anterolisthesis of L 4 upon L5. Advanced degenerative spondylosis with disc space narrowing at L4-L5 and L5-S1. No fracture or acute subluxation otherwise appreciated. IMPRESSION: Chronic degenera tive spondylosis. L4-L5 anterolisthesis, unchanged from 03/24/2015. No other acute finding. SL:14 Shoulder series DX Examination: Right shoulder, 3 views 03/30/[address] [place] [address] History: Pain from a fall Comparison: None. Findings: Multiple views of the right shoulder show no acute bony fracture or joint dislocation. Bones are demineralized. Severe glenohumeral joint osteoarthrosis is seen. Soft tissues are unremarkable. IMPRESSION: No acute bony abnormality of the rig ht shoulder. SL: 16 Abdomen/Pelvis w IV EXAMINATION: CT of the abdomen and pelvi s with contrast 03/24/2015 [facility] contrast CT HISTORY: Abdominal pain, acute [...] views DX CHEST RADIOGRAPH 2 VIEWS 03/21/2015 [facility] INDICATION: Chest pain COMPARISON: Chest radiograph 03/11/2015 IMPRESSION: The cardiac silhouette and pulmonary vasculature are within normal limits. No consolidation, pleural effusion, or pneumotho rax are visible. SL: 16 Chest 1view DX Examination: Chest x-ray, single view 03/11/2015 [facility] History: Chest pain Comparison: 03/05/2015 Findings: Cardiac silhouette is normal in size. Mild interstitial edema is seen. There is no pleural effusion or pneumothorax. Coronary artery stent is noted. Osseous structures are stable. IMPRESSION: Mild pulmonary edema SL: 16 Chest Pulmonary EXAM: CTA CHEST WITH CONTRAST 03/05/2015 [facility] Medical Embolism CTA Center DATE: 03/05/2015 at [...] DX EXAM: XR CHEST 1 VIEW 03/05/2015 [facility] DATE: Mar 05, 2015 01:09:00 AM INDICATION: [...] MRI BRAIN WITH AND WITHOUT CONTRAST: 015 [facility] CLINICAL HISTORY: Mass/Tumor. TECHNIQUE AND FINDINGS: [...] Lower Extremity Runoff, [id number] at 2148. 02/24/2015 [facility] runoff CTA CLINICAL HISTORY: 64-year-ol d [...] 2 views DX Chest 2 views. 02/24/2015 [facility] COMPARISON: 02/16/2015 FINDINGS: Mild scarring is [...] 2 or 3 THREE-VIEW CERVICAL SPINE: 02/24/2015 [facility] view DX DISCUSSION: No older studies [...] wo contrast CT NAME: LUCIUS YEPEZ 02/24/2015 [facility] : 1950 SEX: [id number] Ordering Physician: [...] 1view DX EXAM: CHEST 1 VIEW 02/16/2015 [facility] DATE: Feb 16, 2015 06:21:07 PM INDICATION: Chest pain COMPARISON: None. TECHNIQUE: AP chest radiograph. FINDINGS: Lungs are clear bilaterally without effusion. Cardiac silhouette is not enlarged. Aorta is mildly ectatic. Aortic arch calcifications are seen.. Coronary artery stent is seen. Right shoulder degenerative changes are noted. IMPRESSION: 1. No acute intrathoracic abnormality SL: 12 Chest 1view PROCEDURE: Chest 1view 12/22/2013 [facility] REASON FOR EXAM: See Clinic Indication CLINICAL INDICATION: Chest pain COMPARISON: 12/16/2013. FINDINGS: No acute process. No focal consolidation, pleural effusion, or pneumothorax. Stable cardiac silhouette and mediastinum. Tortuous atherosclerotic thoracic aorta. SL: 12 Chest Pulmonary EXAM: CTA CHEST WITH CONTRAST 12/16/2013 [facility] Embolism CTA Center DATE: 12/16/2013 [...] views EXAM: XR CHEST 2 VIEWS 12/16/2013 [facility] DATE: 12/16/2013 at 1341 hours INDICATION: [...] [place] t Diastolic (mm Hg) 70 01/19/2017 [facility] st Respitory Rate 16 01/19/2017 [facility] Systolic (mm Hg) 117 01/19/2017 [facility] t Diastolic (mm Hg) 66 01/19/[address] [facility] [address] Respitory Rate 18 01/19/2017 [facility] Respitory Rate 16 01/19/2017 [facility] Systolic (mm Hg) 133 01/19/2017 [facility] t Diastolic (mm Hg) 68 01/19/2017 [facility] Weight 45.455 01/19/2017 [facility] BMI Calculated 19.57 01/19/2017 [facility] Height 152.4 cm 01/19/2017 [facility] Temperature Oral (F) 97.0 F 01/19/2017 [facility] heast Heart Rate 60 01/19/2017 [facility] Systolic (mm Hg) 118 01/17/2017 [facility] Diastolic (mm Hg) 71 01/17/2017 [facility] Respitory Rate 21 01/17/2017 [facility] Systolic (mm Hg) 136 01/17/2017 [facility] Diastolic (mm Hg) 71 01/17/2017 [facility] Respitory Rate 20 01/17/2017 [facility] Temperature Oral (F) 98.1 F 01/17/2017 [facility] Systolic (mm Hg) 129 01/17/2017 [facility] Diastolic (mm Hg) 74 [facility]/17[facility] Resp[facility] Rate 18 01/17/2017 [facility] Heart Rate 79 01/16/2017 [facility] Temperature Oral (F) 98 F 01/16/2017 [facility] Weight 45.455 01/16/2017 [facility] [place] Heart Rate 89 11/29/2016 [facility] Systolic (mm Hg) 119 11/29/2016 [facility] Diastolic (mm Hg) 62 11/29/2016 [place] Resp[facility] Rate 18 11/29/2016 [facility] Temperature Oral (F) 98.7 F 11/29/2016 [place] Heart Rate 90 11/29/2016 [facility] Respitory Rate 18 11/29/2016 [facility] Systolic (mm Hg) 113 11/29/2016 [facility] Diastolic (mm Hg) 66 11/29/2016 [facility] [place] Heart Rate 93 11/29/2016 [facility] Respitory Rate 18 11/29/2016 [facility] Systolic (mm Hg) 118 11/29/2016 [facility] Diastolic (mm Hg) 61 11/29/2016 [facility] [place] Weight 50 11/29/2016 [facility] BMI Calculated 21.53 11/29/2016 [facility] Height 152.4 cm 11/29/2016 [facility] Temperature Oral (F) 98.6 F 11/29/2016 [place] Respitory Rate 16 11/07/2016 [facility] Heart Rate 84 11/07/2016 [facility] Temperature Oral (F) 98.2 F 11/07/2016 [place] Systolic (mm Hg) 122 11/07/2016 [facility] Diastolic (mm Hg) 72 11/07/2016 [place] Heart Rate 88 11/07/2016 [facility] Respitory Rate 16 11/07/2016 [facility] Systolic (mm Hg) 98 11/07/2016 [facility] Diastolic (mm Hg) 62 11/07/2016 [place] Weight 56.818 11/06/2016 [facility] Heart Rate 96 11/06/2016 [facility] Temperature Oral (F) 98.3 F 11/06/2016 [place] Respitory Rate 16 11/06/2016 [facility] Systolic (mm Hg) 123 11/06/2016 [facility] Diastolic (mm Hg) 70 11/06/2016 [place] Resp[place] Rate 18 10/11/2016 [facility] Temperature Oral (F) 97.9 F 10/11[facility] Sy[facility]olic (mm Hg) 99 10/11/2016 [facility] Diastolic (mm Hg) 57 10/11/[address] [facility] edical Center Heart Rate 51 10/11/2016 [facility] Heart Rate 56 10/11/2016 [facility] Systolic (mm Hg) 125 10/11/2016 [facility] [place] [facility] Diastolic (mm Hg) 63 10/11[facility]2016 [facility] Oral (F) 98.1 F 10/11/2016 [facility] Temperature Oral (F) 99.0 F 10/11/2016 [facility] Respitory Rate 16 10/11/2016 [facility] Center Heart Rate 72 10/11/2016 [facility] Systolic (mm Hg) 115 10/11/2016 [facility] d[facility] Center Diastolic (mm Hg) 56 10/11/[address] [facility] edical Center Weight 50 10/11/2016 [facility] BMI Calculated 21.53 10/11/2016 [facility]ony Center Height 152.4 cm 10/11/2016 [facility] Respitory Rate 19 10/11/2016 [facility] tony Center Height 152.4 cm 10/10/2016 [facility] BMI Calculated 21.53 10/10/2016 [facility]ony Center Weight 50 10/10/2016 [facility] BMI Calculated 21.53 09/15/2016 [facility] Weight 50 09/15/2016 [facility] Height 152.4 cm 09/15/2016 [facility] Systolic (mm Hg) 129 09/15/2016 [facility] Diastolic (mm Hg) 72 09/15/2016 [place] Rate 18 09/15/2016 [facility] Heart Rate 66 09/15/2016 [facility] Temperature Oral (F) 98.5 F 09/15/2016 [place] Respitory Rate 18 04/14/2016 [facility] Temperature Oral (F) 98.7 F 04/14/2016 [facility] Center Systolic (mm Hg) 120 04/14/2016 [facility] Center Diastolic (mm Hg) 88 04/14/[address] [facility] edical Center Heart Rate 79 04/14/2016 [facility] BMI Calculated 21.53 04/14/2016 [facility]ony Center Weight 50 04/14/2016 [facility] Temperature Oral (F) 99.2 F 04/14/2016 [facility] Height 152.4 cm 04/14/2016 [facility] Respitory Rate 18 04/14/2016 [facility] Center Systolic (mm Hg) 110 04/14/2016 [facility] [place] [facility] Diastolic (mm Hg) 68 04/14/2016 [facility] Heart Rate 81 04/14/2016 [facility] Temperature Oral (F) 97.8 F 03/12/2016 [place] Heart Rate 55 03/12/2016 [facility] Rate 17 03/12/2016 [facility] Systolic (mm Hg) 130 03/12/2016 [facility] Diastolic (mm Hg) 70 03/12/2016 [place] Resp[place] Rate 16 03/12/2016 [facility] Systolic (mm Hg) 94 03/12/2016 [facility] Diastolic (mm Hg) 59 03/12/2016 [place] Respitory Rate 18 03/12/2016 [facility] Heart Rate 58 03/12/2016 [facility] Temperature Oral (F) 98.2 F 03/12/2016 [place] Temperature Oral (F) 98.0 F 03/12/2016 [place] Heart Rate 68 03/12/2016 [facility] Systolic (mm Hg) 106 03/12/2016 [facility] Diastolic (mm Hg) 53 03/12/2016 [place] Height 152.4 cm 03/11/2016 [facility] BMI Calculated 21.53 03/11/2016 [facility] Weight 50 03/11/2016 [facility] Respitory Rate 16 03/06/2016 [facility] Systolic (mm Hg) 116 03/06/2016 [facility] Diastolic (mm Hg) 79 03/06/2016 [place] Heart Rate 68 03/06/2016 [facility] Temperature Oral (F) 98.1 F 03/06/2016 [place] BMI Calculated 21.53 03/05/2016 [facility] Weight 50 03/05/2016 [facility] Systolic (mm Hg) 111 03/05/2016 [facility] Diastolic (mm Hg) 81 03/05/2016 [place] Heart Rate 67 03/05/2016 [facility] Height 152.4 cm 03/05/2016 [facility] Temperature Oral (F) 98.3 F 03/05/2016 [place] Respitory Rate 16 03/05/2016 [facility] Respitory Rate 16 03/01/2016 [facility] Systolic (mm Hg) 105 03/01/2016 [facility] Diastolic (mm Hg) 65 03/01/2016 [place] Temperature Oral (F) 98.2 F 03/01/2016 [place] Heart Rate 87 03/01/2016 [facility] Respitory Rate 12 02/29/2016 [facility] Temperature Oral (F) 98.3 F 02/29/2016 [place] Heart Rate 81 02/29/2016 [facility] Respitory Rate 18 02/29/2016 [facility] Systolic (mm Hg) 112 02/29/2016 [facility] Diastolic (mm Hg) 79 02/29/2016 [place] Resp[place] Rate 20 09/05/2015 [facility] Systolic (mm Hg) 99 09/05/2015 [facility] Diastolic (mm Hg) 57 09/05/2015 [facility] st Heart Rate 91 09/05/2015 [facility] Weight 52.276 09/05/2015 [facility] Systolic (mm Hg) 102 09/05/2015 [place] Diastolic (mm Hg) 54 09/05/2015 [facility] st Respitory Rate 18 09/05/2015 [facility] Heart Rate 86 09/05/2015 [facility] Respitory Rate 20 09/05/2015 [facility] Systolic (mm Hg) 95 09/05/2015 [place] Diastolic (mm Hg) 49 09/05/2015 [facility] st Heart Rate 94 09/05/2015 [facility] Weight 50.92 09/04/2015 [facility] Weight 50.909 09/04/2015 [facility] BMI Calculated 19.88 09/04/2015 [facility] Height 160.02 cm 09/04/2015 [facility] Temperature Oral (F) 98.3 F 09/04/2015 [facility] Height 152.4 cm 09/04/2015 [facility] BMI Calculated 22.51 09/04/2015 [facility] Temperature Oral (F) 98.7 F 09/04/2015 [facility] Systolic (mm Hg) 105 07/16/2015 [place] Diastolic (mm Hg) 68 07/16/[address] Resp[facility] Rate 18 07/16/2015 [facility] Heart Rate 65 07/16/2015 [facility] Temperature Oral (F) 98.0 F 07/16/2015 [facility] Systolic (mm Hg) 112 07/16/2015 [place] Diastolic (mm Hg) 70 07/16/[address] Respitory Rate 18 07/16/2015 [facility] Heart Rate 73 07/16/2015 [facility] Temperature Oral (F) 97.4 F 07/16/2015 [facility] Systolic (mm Hg) 131 07/16/2015 [place] Diastolic (mm Hg) 79 07/16/[address] Respitory Rate 18 07/16/2015 [facility] Heart Rate 62 07/16/2015 [facility] Temperature Oral (F) 97.9 F 07/16/2015 [facility] Height 152.4 cm 07/16/2015 [facility] Weight 50.1 07/16/2015 [facility] BMI Calculated 21.57 07/16/2015 [facility] Height 152.4 cm 07/15/2015 [facility] BMI Calculated 21.53 07/15/2015 [facility] Weight 50 07/15/2015 [facility] Weight 50 07/05/2015 [facility] Height 152.4 cm 07/05/2015 [facility] BMI Calculated 21.53 07/05/2015 [facility] Temperature Oral (F) 98.3 F 07/05/2015 [facility] Rate 18 07/05/2015 [facility] Heart Rate 91 07/05/2015 [facility] Systolic (mm Hg) 166 07/05/2015 [place] [facility] Diastolic (mm Hg) 82 07/05/2015 [facility] st BMI Calculated 23.48 07/04/2015 [facility] Weight 54.545 07/04/2015 [facility] Height 152.4 cm 07/04/2015 [facility] Temperature Oral (F) 97.9 F 07/04/2015 [facility] Respitory Rate 18 07/04/2015 [facility] Heart Rate 86 07/04/2015 [facility] Systolic (mm Hg) 98 07/04/2015 [facility] Diastolic (mm Hg) 74 07/04/2015 [facility] BMI Calculated 21.53 06/04/2015 [facility] Weight 50 06/04/2015 [facility] Height 152.4 cm 06/04/2015 [facility] Temperature Oral (F) 98.8 F 06/04/2015 [facility] Rate 20 06/04/2015 [facility] Heart Rate 81 06/04/2015 [facility] Systolic (mm Hg) 100 06/04/2015 [facility] Diastolic (mm Hg) 69 06/04/[address] Systolic (mm Hg) 105 05/18/2015 [facility] Center Diastolic (mm Hg) 65 05/18/2015 [facility] Temperature Oral (F) 96.6 F 05/18/2015 [facility] Heart Rate 68 05/18/2015 [facility] Resp[facility] Rate 18 05/18/2015 [facility] Systolic (mm Hg) 115 05/18/2015 [facility] d[facility] Center Diastolic (mm Hg) 79 05/18/[address] [facility] edical Center Systolic (mm Hg) 93 05/18/2015 [facility] d[facility] Center Diastolic (mm Hg) 60 05/18/2015 [facility] Temperature Oral (F) 98.1 F 05/18/2015 [facility] Respitory Rate 17 05/18/2015 [facility] Temperature Oral (F) 98.2 F 05/18/2015 [facility] Heart Rate 68 05/18/2015 [facility] Respitory Rate 18 05/18/2015 [facility] Heart Rate 96 05/18/2015 [facility] Resp[facility] Rate 20 05/09/2015 [facility] Systolic (mm Hg) 115 05/09/2015 [facility] Center Diastolic (mm Hg) 64 05/09/2015 [facility] Temperature Oral (F) 97.5 F 05/09/2015 [facility] Temperature Oral (F) 97.5 F 05/09/2015 [facility] Systolic (mm Hg) 136 05/09/2015 [facility] d[facility] Center Diastolic (mm Hg) 70 05/09/[address] [facility] edical Center Respitory Rate 19 05/09/2015 [facility] Systolic (mm Hg) 135 05/09/2015 [facility] Center Diastolic (mm Hg) 67 05/09/[address] [facility] edical Center Weight 50 05/09/2015 [facility] BMI Calculated 21.53 05/09/2015 [facility] Height 152.4 cm 05/09/2015 [facility] Temperature Oral (F) 98.9 F 05/09/2015 [facility] Respitory Rate 18 05/09/2015 [facility] Heart Rate 77 05/09/2015 [facility] Systolic (mm Hg) 115 05/03/2015 [facility] Center Diastolic (mm Hg) 74 05/03/2015 [facility] 77 05/03/2015 [facility] Respitory Rate 18 05/03/2015 [facility] Temperature Oral (F) 98.5 F 05/03/2015 [facility] Heart Rate 75 05/02/2015 [facility] Respitory Rate 18 05/02/2015 [facility] Systolic (mm Hg) 113 05/02/2015 [facility] d[facility] Center Diastolic (mm Hg) 71 05/02/[address] [facility] edical Center Heart Rate 72 05/02/2015 [facility] [place] Temperature Oral (F) 98.1 F 05/02/2015 [facility] Systolic (mm Hg) 146 05/02/2015 [facility] Center Diastolic (mm Hg) 80 05/02/2015 [facility] Respitory Rate 18 05/02/2015 [facility] Temperature Oral (F) 98.9 F 05/02/2015 [facility] Systolic (mm Hg) 123 04/11/2015 [place] [facility] Diastolic (mm Hg) 78 04/11/[address] Temperature Oral (F) 98.7 F 04/11/2015 [facility] Resp[facility] Rate 18 04/11/2015 [facility] Heart Rate 80 04/11/2015 [facility] Weight 50 04/11/2015 [facility] Temperature Oral (F) 98.4 F 04/11/2015 [facility] Systolic (mm Hg) 90 04/11/2015 [place] Diastolic (mm Hg) 65 04/11/[address] Respitory Rate 18 04/11/2015 [facility] Heart Rate 94 04/11/2015 [facility] Systolic (mm Hg) 123 03/30/2015 [place] Diastolic (mm Hg) 78 03/30/2015 [facility] st Temperature Oral (F) 97.9 F 03/30/2015 [facility] Heart Rate 81 03/30/2015 [facility] Respitory Rate 18 03/30/2015 [facility] BMI Calculated 21.53 03/30/2015 [facility] Height 152.4 cm 03/30/2015 [facility] Systolic (mm Hg) 114 03/30/2015 [place] Diastolic (mm Hg) 73 03/30/[address] Respitory Rate 16 03/30/2015 [facility] Heart Rate 83 03/30/2015 [facility] Weight 50 03/30/2015 [facility] Temperature Oral (F) 97.9 F 03/30/2015 [facility] Resp[facility] Rate 18 03/24/2015 [facility] Temperature Oral (F) 97.9 F 03/24/2015 [facility] Heart Rate 83 03/24/2015 [facility] Systolic (mm Hg) 114 03/24/2015 [place] Diastolic (mm Hg) 71 03/24/2015 [facility] st Heart Rate 96 03/24/2015 [facility] Temperature Oral (F) 98.8 F 03/24/2015 [facility] Resp[facility] Rate 18 03/24/2015 [facility] Systolic (mm Hg) 108 03/24/2015 [place] Diastolic (mm Hg) 68 03/24/2015 [facility] st Heart Rate 85 03/24/2015 [facility] Temperature Oral (F) 98.4 F 03/24/2015 [facility] Resp[facility] Rate 18 03/24/2015 [facility] Systolic (mm Hg) 110 03/24/2015 [place] Diastolic (mm Hg) 64 03/24/2015 [facility] st BMI Calculated 22.82 03/22/2015 [facility] Weight 53 03/22/2015 [facility] Height 152.4 cm 03/22/2015 [facility] BMI Calculated 21.53 03/21/2015 [facility] Weight 50 03/21/2015 [facility] Height 152.4 cm 03/21/2015 [facility] Systolic (mm Hg) 113 03/11/2015 [place] Diastolic (mm Hg) 72 03/11/[address] Respitory Rate 18 03/11/2015 [facility] Heart Rate 72 03/11/2015 [facility] Temperature Oral (F) 98.1 F 03/11/2015 [facility] BMI Calculated 21.53 03/11/2015 [facility] Weight 50 03/11/2015 [facility] Systolic (mm Hg) 122 03/11/2015 [place] Diastolic (mm Hg) 75 03/11/2015 [facility] st Temperature Oral (F) 97.9 F 03/11/2015 [facility] Heart Rate 90 03/11/2015 [facility] Respitory Rate 18 03/11/2015 [facility] Height 152.4 cm 03/11/2015 [facility] Temperature Oral (F) 97.9 F 03/05/2015 [facility] Systolic (mm Hg) 108 03/05/2015 [facility] Center Diastolic (mm Hg) 60 03/05/2015 [facility] Respitory Rate 16 03/05/2015 [facility] Respitory Rate 16 03/05/2015 [facility] Temperature Oral (F) 97.8 F 03/05/2015 [facility] Systolic (mm Hg) 96 03/05/2015 [facility] Center Diastolic (mm Hg) 64 03/05/2015 [facility] Respitory Rate 20 03/05/2015 [facility] Systolic (mm Hg) 96 03/05/2015 [facility] Center Diastolic (mm Hg) 62 03/05/2015 [facility] Temperature Oral (F) 97.7 F 03/05/2015 [facility] Heart Rate 83 03/05/2015 [facility] Heart Rate 100 03/05/2015 [facility] Height 152.4 cm 03/05/2015 [facility] BMI Calculated 21.53 03/05/2015 [facility] Weight 50 03/05/2015 [facility] Systolic (mm Hg) 121 02/25/2015 [facility] Diastolic (mm Hg) 69 02/25/2015 [facility] Temperature Oral (F) 97.9 F 02/25/2015 [facility] Heart Rate 71 02/25/2015 [facility] Respitory Rate 18 02/25/2015 [facility] Temperature Oral (F) 98 F 02/25/2015 [facility] Heart Rate 70 02/25/2015 [facility] Respitory Rate 18 02/25/2015 [facility] Systolic (mm Hg) 108 02/25/2015 [facility] Diastolic (mm Hg) 61 02/25/[address] Systolic (mm Hg) 90 02/25/2015 [facility] Diastolic (mm Hg) 59 02/25/2015 [facility] st Respitory Rate 18 02/25/2015 [facility] Heart Rate 55 02/25/2015 [facility] Temperature Oral (F) 97.8 F 02/25/2015 [facility] Height 152.4 cm 02/24/2015 [facility] BMI Calculated 21.53 02/24/2015 [facility] Weight 50 02/24/2015 [facility] Heart Rate 85 02/18/2015 [facility] Temperature Oral (F) 97.3 F 02/18/2015 [facility] Systolic (mm Hg) 102 02/18/2015 [place] [facility] Diastolic (mm Hg) 69 02/18/[address] Respitory Rate 20 02/18/2015 [facility] Heart Rate 76 02/18/2015 [facility] Respitory Rate 20 02/18/2015 [facility] Systolic (mm Hg) 94 02/18/2015 [place] [facility] Diastolic (mm Hg) 69 02/18/[address] Temperature Oral (F) 97.5 F 02/18/2015 [facility] Temperature Oral (F) 97.9 F 02/18/2015 [facility] Systolic (mm Hg) 97 02/18/2015 [place] [facility] Diastolic (mm Hg) 69 02/18/[address] Respitory Rate 20 02/18/2015 [facility] Heart Rate 71 02/18/2015 [facility] Weight 51.051 02/17/2015 [facility] Height 152.4 cm 02/17/2015 [facility] BMI Calculated 21.98 02/17/2015 [facility] Weight 52.273 02/16/2015 [facility] BMI Calculated 22.51 02/16/2015 [facility] Height 152.4 cm 02/16/2015 [facility] Respitory Rate 16 12/25/2013 [facility] Heart Rate 60 12/25/2013 [facility] Diastolic (mm Hg) 66 12/25/[address] Systolic (mm Hg) 108 12/25/2013 [facility] Temperature Oral (F) 98.3 F 12/25/2013 [facility] BMI Calculated 21.53 12/25/2013 [facility] Weight 50 12/25/2013 [facility] Height 152.4 cm 12/25/2013 [facility] Respitory Rate 18 12/25/2013 [facility] Heart Rate 63 12/25/2013 [facility] Diastolic (mm Hg) 71 12/25/[address] Systolic (mm Hg) 112 12/25/2013 [place] Temperature Oral (F) 98.8 F 12/25/2013 [facility] Heart Rate 61 12/23/2013 [facility] Systolic (mm Hg) 115 12/23/2013 [place] [facility] Resp[facility] Rate 18 12/23/2013 [facility] Temperature Oral (F) 98.3 F 12/23/2013 [facility] Diastolic (mm Hg) 61 12/23/[address] Diastolic (mm Hg) 60 12/22/2013 [facility] Temperature Oral (F) 98.4 F 12/22/2013 [facility] Systolic (mm Hg) 114 12/22/2013 [facility] Resp[facility] Rate 18 12/22/2013 [facility] Heart Rate 58 12/22/2013 [facility] Weight 50 12/22/2013 [facility] Temperature Oral (F) 98.7 F 12/22/2013 [facility] Systolic (mm Hg) 96 12/22/2013 [facility] Diastolic (mm Hg) 65 12/22/2013 [facility] st Respitory Rate 18 12/22/2013 [facility] Heart Rate 66 12/22/2013 [facility] Diastolic (mm Hg) 61 [facility] 18 12/17/2013 [facility] Systolic (mm Hg) 100 12/17/2013 [facility] Systolic (mm Hg) 98 12/17/2013 [facility] Center Diastolic (mm Hg) 52 12/17[facility]2013 [facility] 18 12/17/2013 [facility] Systolic (mm Hg) 78 12/17/2013 [facility] Center Diastolic (mm Hg) 38 12/17/2013 [facility] Temperature Oral (F) 98.1 F 12/17/2013 [facility] Respitory Rate 18 12/17/2013 [facility] Temperature Oral (F) 97.1 F 12/17/2013 [facility] Height 152.4 cm 12/17/2013 [facility] Weight 49.545 12/17/2013 [facility] BMI Calculated 21.33 12/17/2013 [facility] Temperature Oral (F) 98.1 F 12/17/2013 [facility] Height 152.4 cm 12/16/2013 [facility] BMI Calculated 20.94 12/16/2013 [facility] Weight 48.636 12/16/2013 [facility] Heart Rate 80 12/16/2013 [facility] Temperature Oral (F) 98 F 11/08/2013 [facility] Diastolic (mm Hg) 58 11/08/2013 [facility] Respitory Rate 16 11/08/2013 [facility] Systolic (mm Hg) 107 11/08/2013 [facility] Temperature Oral (F) 97.6 F 11/08/2013 [facility] Diastolic (mm Hg) 56 11/08/2013 [facility] Sy[facility] (mm Hg) 114 11/08/2013 [facility] Center Respitory Rate 18 11/08/2013 [facility] Systolic (mm Hg) 115 11/08/2013 [facility] Respitory Rate 16 11/08/2013 [facility] Diastolic (mm Hg) 63 11/08/2013 [facility] Temperature Oral (F) 99.0 F 11/08/2013 [facility] Heart Rate 76 11/08/2013 [facility] Heart Rate 80 11/08/2013 [facility] BMI Calculated 27.4 11/08/2013 [facility] Height 152.4 cm 11/08/2013 [facility] [place] Weight 63.636 11/08/2013 [facility] [place] Heart Rate 87 11/08/2013 [facility] [place] Encounters Location Location Encounter Encounter Reason Attending ADM DC Stat us Source Details Type Number For Provider Date Date Visit Memorial OBS [id number] _MAPID: Dustin 11/08 11/08 [facility] victoriano [place] Observ[place] [id number] ENCNTRR Sajja /2013 [facility] Patient 6 [id number] Center 349 Memorial OBS [id number] Alvarez 12/16 12/17 [facility] Observation [address] [facility] Patient Center Memorial EC Emergency [id number] Jann 12/22 12/23 [facility] 8 Nba /2013 [facility] EC Emergency [id number] Rishabh 12/25 12/25 [facility] 9 Dorothea Villagomez /2013 [facility] OBS [id number] Kalpna 02/16 02/18 [facility] Observation 0 Thu /2014 [facility] OBS [id number] [place] 02/24 02/26 [place] 1 Dixon /2014 [facility] EC Emergency [id number] Tata Rushing 03/05 03/05 [facility] [place] 2 /2014 [facility] EC Emergency [id number] Habacuc 03/11 03/11 [facility] Center 3 Dick /2014 [facility] Inpatient [id number] Catarino 03/21 03/24 Maciej 4 [place] /2014 [facility] EC Emergency [id number] Isatu 03/30 03/30 [place] [facility] 5 Akunyili /2014 [facility] EC Emergency [id number] Gilmar Pina 04/11 04/11 [facility] Center [facility] EC Emergency [id number] Indira Henin 05/02 05/03 [facility] Emergency [id number] Indira Henin 05/09 05/09 [facility] [place] [facility] Emergency [id number] Indira Henin 05/18 05/18 [facility] [place] [facility] Emergency [id number] Luzmaria Ware 06/04 06/04 [facility] Center 0 /2014 [facility] EC Emergency [id number] Maribel 07/04 07/04 [facility] [place] 1 Recio /2014 [facility] Emergency [id number] Habacuc 07/05 07/05 [place] [facility] 2 Dick /2014 [facility] OBS [id number] Janet 07/15 07/16 [facility] Observation 3 Anjel /2014 [facility] OBS [id number] Mateus [place] 09/04 09/05 [facility] 4 [facility] EC Emergency [id number] Good 02/28 03/01 [facility] 5 Garbino /2015 [facility] EC Emergency [id number] Rachele 03/05 03/06 [facility] 6 Fadowole /2015 [facility] OBS [id number] Khadijat 03/11 03/12 [facility] Observation 7 Ogunbiyi /2015 [facility] [facility] Memorial Emergency [id number] Jose Frandy 04/14 04/14 [facility] [id number] Nando 09/15 09/15 [facility] 9 Weathers /2016 [facility] Observation [id number] Jessika Gallegomed 10/10 10/11 [facility] 0 [facility] Emergency [id number] Christopher 11/06 11/07 [facility] 1 Nava /2016 [facility] Emergency [id number] Abdullah 11/29 11/29 [facility] 2 Basnawi /2016 [facility] Emergency [id number] Jl 01/16 01/17 [facility] 3 Bublewicz /2016 [facility] Memorial Emergency [id number] Mac 01/19 01/19 [facility] 4 Patel /2016 [facility] Procedures Procedure Code Date Perfomer Comments Source Cardiac [id number] [facility] catheterization Medical procedure Center,[facility] Stent [id number] cardiac [facility] placement<sup>1</sup> Med ical Center,[facility] Assessment and Plan Assessment and Plan Date Source Extracted from:Title: History and Physical 01/17/2017 [facility] Author: Kita Keating MD Date: 01/16/17 [...] use, and educated about increased risk of [place] if taken concurrently with cocaine, due to [...] clinic. Extracted from:Title: History and Physical 10/11/2016 [facility] Author: Maurice Lazaro MD Date: 10/10/16 [...] Heparin sub q Disposition Pending clinical improvement [facility] hospitalist is primary, please pag [phone] with questions or concerns. Extracted from:Title: Progress Note Complex * 03/24/2015 [facility] Author: Catarino Fragoso MD Date: 03/24/15 Impression and Plan Chest pain; atypical no evidence of ischemia will cont B blo kers. Andominal pain: patient will go for Ct a bdomen, she had melena GI consult pending, H/H stable, cont PPI's Extracted from:Title: CARDIOLOGY 02/26/2015 [facility] Author: Arpan Alvarado MD Date: 02/25/15 CARDIOLOGY CONSULTATION # [id number] THANK YOU FOR THIS REFERRAL Carlitos ALVARADO [...] list: All Problems Asthma / SNOMED CT 977806302 / Confirmed Cardiac chest pain / SNOMED CT 1105270154 / Confirmed HTN - Hypertension / SNOMED CT 9483146531 / Confirmed Hyperlipidemia / SNOMED CT 18093048 / Confirmed Smoking cessation education / SNOMED CT 0454996807 / Confirm ed Tissue perfusion / SNOMED CT 4798745392 / Confirmed Objective Meds Scheduled Meds (4):atorvastatin, [...] 16) Total CK 77 (FEB 17) 92 (BARTOLO 1) 93 (FEB 16) . Impression and Plan Ready for D/C 1. chest pain: s/p cardiac cath, normal coronaries, stent is patent, dw cardiology ok to dc from there side. 2. Hypotension: chonic, will monitor, if continues, then will hold dc and give ivf 3. Epigatsric pain: likley gatsritis, st art omeprazole. will hold off asa for now. Addendum by Los Ware MD on 02/17/2015 16:52 held the discharge because of low blood pressure, will give ivf. no fever or hypothermia to suggest sepsis, likely has dehydration. Extracted from:Title: Cardiovascular Admission H&P * 014 [facility] Author: Erica Chatman MD Date: 12/16/13 [...] adenosine stress test in AM, f/u results. [employer] [facility] after midnight -- Continue ASA and [...] we discussed. Extracted from:Title: Clinical Document 11/08/2013 [facility] Author: Dustin Wu Date: 11/08/2013 Date [...] diagnosis, prescriptions. Extracted from:Title: Clinical Document Author: Dustin Wu Date: 11/08/2013 Date of Admission: 11/08/13 Chief [...] cardiac enzymes, home later in the day [facility] [place] primary. Please call [phone] with questions Plan of Care No Data Provided for This Section Social History Social History Date Source Social History TypeResponse 10/10/2016 [facility] Substance Abuse Use: Current. Type: Cocaine. Alcohol [...] smoking cessation counceling Social History TypeResponse 10/10/2016 [facility] Substance Abuse Use: Current. Type: Cocaine. [...] smoking cessation counceling Social History TypeResponse 10/10/2016 [facility] Substance Abuse Use: Current. Type: Cocaine. [...] smoking cessation counceling Social History TypeResponse 03/22/2015 [facility] Substance Abuse Use: None. Alcohol Past, [...]
--- OUTSIDE RECORDS SUMMARY | 2020-09-17 16:36 | XMS REPORT | Continuity of Care Document ---
:1950 Author Organization [facility] t Address [address] [place] [address] Care Team Providers Name Role Phone UNKNOWN [...] 2017-01-16 Memoria 5-21 20:56:00 l CHEST 00:00: Bowman PAIN 00 Active 01/16/2017 [facility] PAIN Diagnosis Active 2016-11-28 Mem oria 4-02 20:00:00 l PAIN 00:00: Bowman 00 Active 11/28/2016 [facility] FACIAL Diagnosis Active 2016-11-06 Mem oria SWELLING 3-11 18:35:00 l FACIAL 00:00: Bowman SWELLING 00 Active 11/06/2016 [facility] SYNCOPE Diagnosis Active 2017-02-18 Me moria 2-12 10:16:00 l SYNCOPE 00:00: Maciej 00 Active 10/10/2016 [facility] SICK Diagnosis Active 2016-10-10 Mem oria 2-12 20:58:00 l SICK 00:00: Maciej 00 Active 10/10/2016 [facility] CHEST Diagnosis Active 2016-03-12 Mem oria PAIN, 7-14 12:26:00 l HYPOTENSIO CHEST 00:00: Caroline nn N PAIN, 00 HYPOTENSIO N Active 03/11/2016 [facility] SOB Diagnosis Active 2016-03-11 Mem oria 03-11 15:11:00 l SOB 00:00: Maciej 00 Active 03/11/2016 [facility] BACK PAIN Diagnosis Active 2016-10-12 Memoria 09-14 14:26:00 l BACK 00:00: Bowman PAIN 00 Active 09/14/2015 [facility] COPD, Diagnosis Active 2015-09-05 Mem oria CHEST PAIN 09-03 15:21:00 l COPD, 00:00: Bowman CHEST PAIN 00 Active 09/03/2015 [place] HEADACHE Diagnosis Active 2014-082015-07-15 M emoria 09-14 17:17:00 l HEADACHE 00:00: Kristopher n 00 Active 07/15/2015 [place] SOB/ Diagnosis Active 2014-082015-07-05 Mem oria WEAKNESS 09-03 01:33:00 l SOB/ 22:00: Bowman WEAKNESS 00 Active 07/04/2015 [place] LOWER BACK Diagnosis Active 2014-082015-07-11 Memoria AND LEG 09-03 13:07:00 l PAIN LOWER 00:00: Maciej BACK AND 00 LEG PAIN Active 07/04/2015 [facility] SHORTNESS Diagnosis Active 2014-082015-06-04 Memoria OF BREATH 0 01:54:00 l 19:00: Bowman SHORTNESS 00 OF BREATH Active 06/03/2015 [place] NAUSEA Diagnosis Active 2015-05-20 Mem oria 05-18 07:49:00 l NAUSEA 00:00: Bowman 00 Active 05/18/2015 [facility] FALL Diagnosis Active 2015-05-02 Mem oria 05-02 16:55:00 l FALL 00:00: Maciej 00 Active 05/02/2015 [facility] NECK AND Diagnosis Active 2015-03-30 M emoria SHOULDER 03-30 16:35:00 l PAIN NECK AND 00:00: Kristopher n SHOULDER 00 PAIN Active 03/30/2015 [place] SOB/CHEST Diagnosis Active 2015-03-21 Memoria PAIN 03-21 15:46:00 l 00:00: Maciej SOB/CHEST 00 PAIN Active 03/21/2015 [place] HYPOTENSIO Diagnosis Active 2015-03-31 Memoria N, CHEST 03-21 11:41:00 l PAIN 00:00: Maciej HYPOTENSIO 00 N, CHEST PAIN Active 03/21/2015 [place] LOWER BACK Diagnosis Active 2015-03-11 Memoria PAIN 03-11 15:56:00 l LOWER 00:00: Bowman BACK PAIN 00 Active 03/11/2015 [place] UPPER BACK Diagnosis Active 2015-02-24 Memoria PAIN 02-24 15:44:00 l UPPER 00:00: Maciej BACK PAIN 00 Active 02/24/2015 [place] ACUTE Diagnosis Active 2015-02-26 Mem oria CHEST PAIN 02-24 09:02:00 l ACUTE 00:00: Maciej CHEST PAIN 00 Active 02/24/2015 [facility] [facility] UNSTABLE Diagnosis Active 2015-02-19 M emoria ANGINA; 02-16 13:44:00 l HYPOTENSIO UNSTABLE 00:00: He rmann N ANGINA; 00 HYPOTENSIO N Active 02/16/2015 [facility] CHEST/LEG Diagnosis Active 2013-12-22 Memoria PAIN 12-22 18:23:00 l 00:00: Maciej CHEST/LEG 00 PAIN Active 12/22/2013 [facility] [facility] OTHER Diagnosis Active 2013-12-16 Mem oria 4-20 20:50:00 l OTHER 00:00: Bowman 00 Active 12/16/2013 [facility] ACS Diagnosis Active 2013-12-18 Mem oria 4-20 15:44:00 l ACS 00:00: Maciej 00 Active 12/16/2013 [facility] Stented Problem Resolve 2017-01-22 Mem oria coronary d 04:26:21 l artery Stented Maciej (finding) coronary artery (finding) Resolved Problem 01/22/2017 [facility] Asthma Problem Active 2017-01-22 Memor ia (disorder) 04:26:21 l Asthma Bowman (disorder) Active Problem 01/22/2017 [facility] [place] Cardiac Problem Active 2017-01-22 Eleazar hilton chest pain 04:26:21 l (finding) Cardiac Herm sho chest pain (finding) Active Problem 01/22/2017 [facility], [place] Hypertensi Problem Active 2017-01-22 M emoria ve 04:26:21 l disorder, Bowman systemic Hypertensi arterial ve (disorder) disorder, systemic arterial (disorder) Active Problem 01/22/2017 [facility], [place] Hyperlipid Problem Active 2017-01-22 M emoria emia 04:26:21 l (disorder) Kristopher n Hyperlipid emia (disorder) Active Problem 01/22/2017 [facility], [place] Myocardial Problem Active 2017-01-22 M emoria infarction 04:26:21 l (disorder) Kristopher n Myocardial infarction (disorder) Active Problem 01/22/2017 [facility], [place] Smoking Problem Active 2017-01-22 Eleazar hilton cessation 04:26:21 l advice Smoking Bowman (regime/th cessation erapy) advice (regime/th erapy) Active Problem 01/22/2017 [facility], [place] Substance Problem Active 2017-01-22 Me moria abuse 04:26:21 l (disorder) Kristopher n Substance abuse (disorder) Active Problem 01/22/2017 [facility] Tissue Problem Active 2017-01-22 Memor ia perfusion 04:26:21 l measure Tissue Maciej (observabl perfusion e entity) measure (observabl e entity) Active Problem 01/22/2017 [facility], [place] Heart Problem Active 2013-12-28 Memor ia disease 01:02:24 l (disorder) Heart Caroline nn disease (disorder) Active Problem 12/28/2013 [facility] INTERMED Diagnosis Active 2013-12-18 M emoria CORONARY 15:44:00 l SYND INTERMED Kristopher n CORONARY SYND Active [facility] ANGINA Diagnosis Active 2015-02-19 Mem oria DECUBITUS 13:44:00 l ANGINA Bowman DECUBITUS Active [facility] HYPOTENSIO Diagnosis Active 2015-03-31 Memoria N NOS 11:41:00 l Maciej HYPOTENSIO N NOS Active [place] SYNCOPE Diagnosis Active 2017-02-18 Me moria AND 10:16:00 l COLLAPSE SYNCOPE Caroline nn AND COLLAPSE Active [facility] Chest Problem 2017-01-19 2017-01-19 M emoria pain, 01-16 00:39:08 00:39:08 l unspecifie Chest 05:00: Caroline nn d pain, 00 unspecifie d 01/16/2017 01/19/2017 [facility] Urinary Problem 2016-12-01 2016-12-01 Memoria tract 4- 00:38:41 00:38:41 l infection, Urinary 05:00: Her farooq site not tract 00 specified infection, site not specified 11/28/2016 12/01/2016 [facility] Dorsalgia, Problem 2016-12-01 2016-12-01 Memoria unspecifie 4- 00:38:41 00:38:41 l d 05:00: Maciej Dorsalgia, 00 unspecifie d 11/28/2016 12/01/2016 [facility] Bitten or Problem 2016-11-09 2016-11-09 Memoria stung by 3- 03:02:23 03:02:23 l nonvenomou Bitten 06:00: Herm sho s insect or stung 00 and other by nonvenomou nonvenomou s s insect arthropods and other , initial nonvenomou encounter s arthropods , initial encounter 11/06/2016 11/09/2016 [facility] Discharge Problem 2016-04-17 2016-04-17 Memoria Diagnosis: 04-14 03:14:09 03:14:09 l Syncope, 05:00: Maciej near Discharge 00 Diagnosis: Syncope, near 04/14/2016 04/17/2016 [facility] Discharge Problem 2016-03-08 2016-03-08 Memoria Diagnosis: [...] Diagnosis: 05-18 01:04:08 01:04:08 l Abdominal 05:00: Bowman pain, Discharge 00 acute, Diagnosis: epigastric Abdominal pain, acute, epigastric 05/18/2015 05/21/2015 [facility] Discharge Problem 2015-05-12 2015-05-12 Memoria Diagnosis: 05-09 07:40:44 07:40:44 l Chest pain 05:00: Kristopher n Discharge 00 Diagnosis: Chest pain 05/09/2015 05/12/2015 [facility],[place] Discharge Problem 2015-05-05 2015-05-05 Memoria Diagnosis: 05-02 10:45:36 10:45:36 l Vertigo 05:00: Bowman Discharge 00 Diagnosis: Vertigo 05/02/2015 05/05/2015 [facility] Discharge Problem 2015-05-05 2015-05-05 Memoria Diagnosis: 05-02 10:45:36 10:45:36 l Syncope 05:00: Bowman and Discharge 00 collapse Diagnosis: Syncope and collapse 5 05/05/2015 [facility] Discharge Problem 2015-04-14 2015-04-14 Memoria Diagnosis: 04-11 05:25:30 05:25:30 l Knee pain, 05:00: Kristopher n right Discharge 00 Diagnosis: Knee pain, right 04/11/2015 04/14/2015 [facility] Discharge Problem 2015-04-14 2015-04-14 Memoria Diagnosis: 04-11 05:25:30 05:25:30 l Lumbar 05:00: Bowman spondylosi Discharge 00 s Diagnosis: Lumbar spondylosi s 04/11/2015 04/14/2015 [facility] Discharge Problem 2015-04-14 2015-04-14 Memoria Diagnosis: 04-11 05:25:30 05:25:30 l Anterolist 05:00: Kristopher n hesis Discharge 00 Diagnosis: Anterolist hesis 04/11/2015 04/14/2015 [facility] Discharge Problem 2015-04-14 2015-04-14 Memoria Diagnosis: 04-11 05:25:30 05:25:30 l Accidental 05:00: Kristopher n fall Discharge 00 Diagnosis: Accidental fall 04/11/2015 04/14/2015 [facility] Discharge Problem 2015-04-02 2015-04-02 Memoria Diagnosis: 03-30 00:46:48 00:46:48 l Chronic 05:00: Bowman pain in Discharge 00 right Diagnosis: shoulder Chronic pain in right shoulder 04/02/2015 [facility] Discharge Problem 2015-03-14 2015-03-14 Memoria Diagnosis: 03-11 09:47:20 09:47:20 l Chest wall 05:00: Kristopher n muscle Discharge 00 strain Diagnosis: Chest wall muscle strain 03/11/2015 03/14/2015 [facility] Discharge Problem 2015-03-08 2015-03-08 Memoria Diagnosis: 03-05 04:07:57 04:07:57 l Dyspnea 05:00: Bowman Discharge 00 Diagnosis: Dyspnea 03/05/2015 03/08/2015 [facility] Allergies, Adverse Reactions, Alerts Allergy Allergy Status Severity Reaction(s) Onset Inactive Treating Comm ents Source Name Type Date Date Clinician Penicill Propensi Active [place] ins ty to 01-02 Health adverse 00:00: reaction 00 s to drug penicill penicill Active Memori a ins ins l Bowman Social History Social Habit Start Date Stop Date Quantity Comments Source Sex Assigned At [facility] Social History 2015-03-22 2015-03-22 [facility] 02:16:03 02:16:03 Medications Ordered Filled Start Stop Current Ordering Indication Dosage Frequency Signature Comments Components Source Medication Medication Date Date Medication? Clinician (SIG) Name Name metoprolol Yes Other chest 25mg Q.5D Take 1 [place] tartrate 7-11 pain tablet by [facility] (LOPRESSOR) 00:00: mouth 2 25 mg 00 times tablet daily. naproxen Yes Chronic 375mg Take 1 [facility] ris (NAPROSYN) 7-11 bilateral tablet by [facility] 375 mg 00:00: low back mouth [...] Chloride 5-24 2,000 l 0.154 18:00: ml/hr, Bowman MEQ/ML 00 Infuse Injectable Over: 30 Solution [...] tartrate -22 (Same as: l 01:44: Lopressor) Bowman 00 12.5 mg=1/2 X 25 mg TAB Meclizine No Notes: Memori a 5-22 (Same as: l 01:44: Antivert) nitrofurant No 100 mg, Mem oria oin 5-22 PO, BID, # l 01:43: 14 cap, 0 Maciej 00 Refill(s) meclizine Yes 25 mg = 1 Mem oria 25 mg oral 5-22 tab, PO, l tablet 01:43: TID, PRN Maciej 00 for dizziness, # 60 tab, 0 Refill(s) Morphine No Notes: Memoria 5-21 (Same l 23:57: as:MORPhin e Sulfate) Ondansetron No Notes: Eleazar hilton 5-21 (Same as: l 23:57: Zofran) MEDICATION WASTE Product Size: 4 mg Product Wasted: _0__ mg Aspirin No Notes: Memoria 5-21 Take with l 23:57: food. Saline No Notes: Memoria Flush 0.9% - Same as: l 23:41: BD Posiflush Sterile [...] PO, l Oral 03:41: BID, X 7 Bowman Capsule 00 day, # 14 [Macrobid] cap, 0 Refill(s) Tramadol No Notes: Not Mem oria - to exceed l 03:02: 400mg/day. Maciej 00 (Same As: Ultram) Albuterol No Notes: Memori a 0.833 MG/ML - (Same as: l / 00:23: Duoneb) Maciej Ipratropium 00 [place] 0.167 MG/ML Inhalant Solution [DuoNeb] Saline No Notes: Memoria Flush 0.9% 11-29 preservati l 00:23: ve free. Bowman 00 Mupirocin Yes 1 appl, Memor ia 0.02 MG/MG 3-12 TOP, TID, l Topical 02:49: PRN as Maciej Ointment 00 needed, [Bactroban] Apply to affected area(s), X 14 day, # 60 gm, 0 Refill(s) Saline No Notes: Memoria Flush 0.9% 3-12 (Same as: l 00:51: BD Bowman Posiflush) atorvastati No Notes: Eleazar hilton n 2-14 Same as l 03:00: Lipitor Bowman 00 remove No Notes: Memoria patch 2-14 Remove l 03:00: patch 12 Bowman 00 hours after applicatio n each day. metoprolol No Notes: Memor ia tartrate 2-13 (Same as: l 15:00: Lopressor) Bowman 00 12.5 mg=1/2 X 50 mg TAB heparin No Notes: Memoria sodium, 2-13 porcine l porcine 15:00: heparin Bowman 2500 UNT/ML 00 Injectable Solution Protonix No Notes: Memoria 2-13 Tablet l 15:00: should not Bowman 00 be chewed or crushed. (Same as: Protonix) Symbicort No Notes: Memori a 160/4.5 2-13 (Same as: l inhalation 15:00: Symbicort) H ermann aerosol 00 WASTE: with Aerosol - adapter Return to Pharmacy Aspirin 325 No Notes: Eleazar hilton MG Oral 2-13 Take with l Tablet 15:00: food. Maciej 00 Omeprazole No 20 mg, Memor ia 2-13 Route: PO, l 15:00: Drug form: Bowman 00 ECTAB, BID, Dosing Weight 50, kg, Start date: 10/11/16 9:00:00 WHITE SPOOLER, Duration: 30 day, Stop date: 11/09/16 17:00:00 CDT potassium No Notes: Memori a chloride 2-13 (Same as: l 06:02: K-Dur 20) Bowman 00 "Do Not Crush" With food and [...] Memoria 2-13 (Same as: l 02:07: Colace) Bowman 00 (Do Not Crush) Morphine No Notes: Memoria 2-13 (Same l 02:07: as:MORPhin Maciej 00 e Sulfate) Acetaminoph No Notes: Eleazar hilton en 325 MG / 2-13 (Same as: l Hydrocodone 02:07: [place] Caroline nn Bitartrate 00 325/5) Do 5 [...] 2-12 (Same as: l 19:48: K-Dur 20) Bowman 00 "Do Not Crush" With food and full glass of water Aspirin No Notes: Memoria 2-12 Take with l 18:33: food. Bowman 00 B-3-50 No 50 mg, Memoria 1-18 Route: PO, l 15:00: Daily, Dosing Weight 50, kg, Start date: 09/15/16 9:00:00 WHITE SPOOLER, Duration: 30 day, Stop date: 10/14/16 9:00:00 WHITE SPOOLER tramadol Yes 50 mg = 1 Eleazar hilton hydrochlori 8-17 tab, PO, l de 50 MG 06:12: BID, X 15 Herm sho Oral Tablet 00 day, # 30 tab, 0 Refill(s) Acetaminoph No Notes: Eleazar hilton en 325 MG / 8-17 (Same as: l Hydrocodone 05:13: [place] Caroline nn Bitartrate 00 325/5) Do 5 MG Oral not exceed Tablet 4gm/day of [[place] acetaminop 5/325] hen. atorvastati No Notes: Eleazar hilton n 7-16 (Same as: l 02:00: Lipitor) Bowman 00 200 ACTUAT No Notes: Memor ia Albuterol 7-15 Same as: l 0.09 16:00: Ventolin Maciej MG/ACTUAT 00 HFA Metered WASTE: Dose Aerosol - Inhaler Return to [[facility]] Protonix No Notes: Memoria 7-15 Tablet l 15:00: should not Maciej 00 [...] tartrate 7-15 (Same as: l 14:00: Lopressor) Maciej 00 clopidogrel No Notes: Eleazar hilton 7-15 [...] food. Nitroglycer No Notes: Eleazar hilton in 7-15 (Same l 02:35: as:Nitroqu ick, Nitrostat) "Do Not Crush" Sublingual tablet Saline No Notes: Memoria Flush 0.9% 7-15 (Same as: l 02:00: BD Bowman Posiflush) Saline No Notes: Memoria Flush 0.9% 7-14 (Same as: l 23:45: BD Bowman 00 Posiflush) Sodium No 1,000 mL, Memori a Chloride 7-14 1,000 l 0.154 20:57: ml/hr, Maciej MEQ/ML 00 Infuse Injectable Over: 1 Solution Hour, Route: IV, ONCE, Priority: STAT, Dosing Weight 50 kg, Start date: 03/11/16 15:57:00 CDT, Duration: 1 doses or times, Stop date: 03/11/16 15:57:00 CDT Sodium No 1,000 mL, Memori a Chloride 7-14 1,000 l 0.154 20:56: ml/hr, Bowman MEQ/ML 00 Infuse Injectable Over: 1 Solution Hour, Route: IV, ONCE, Priority: STAT, Dosing Weight 50 kg, Start date: 03/11/16 15:56:00 CDT, Duration: 1 doses or times, Stop date: 03/11/16 15:56:00 CDT Saline No Notes: Memoria Flush 0.9% 03-11 (Same as: l 20:05: BD Maciej 00 Posiflush) Nitroglycer No Notes: Eleazar hilton in 03-11 (Same l 20:05: as:Nitroqu Bowman ick, Nitrostat) "Do Not Crush" Sublingual tablet [...] tab, PO, l Tablet 02:07: BID, PRN Bowman [Naprosyn] 00 Pain Score 6-10, # 60 tab, 0 Refill(s) Zofran No Notes: Memoria 03-06 (Same as: l 00:55: Zofran Maciej 00 ODT) Acetaminoph No Notes: Eleazar hilton en 325 MG / 03-06 (Same as: l Hydrocodone 00:55: [place] Caroline nn Bitartrate 00 325/5) Do 5 MG Oral not exceed Tablet 4gm/day of [[place] acetaminop 5/325] hen. Flagyl No Notes: Memoria [...] (Same as: l MEQ 23:48: K-Dur 20) Bowman Extended 00 "Do Not Release Crush" Tablet With food and full glass of water Albuterol No Notes: Memori a 0.833 MG/ML 02-28 (Same as: l / 22:53: Duoneb) Bowman Ipratropium 00 [place] 0.167 MG/ML Inhalant Solution [DuoNeb] Symbicort Yes 2 puff, Memor ia 160/4.5 -08 INHALATION l inhalation 13:20: , BID, # 1 H ermann aerosol 00 ea, 1 with Refill(s) adapter predniSONE Yes See Memoria 10 mg oral 09-05 Special l tablet 13:20: Instructio Caroline nn [...] tab, PO, l Tablet 13:20: Daily, 0 Bowman 00 Refill(s) atorvastati No Notes: Eleazar hilton n -08 (Same as: l 03:00: Lipitor) Bowman 00 Solu-Medrol No Notes: Eleazar hilton -07 (Same l 22:00: as:Solu-ME Bowman 00 DROL, A-Methapre d) 24 HR No Notes: Memoria Metoprolol - (Same as: l Tartrate 25 15:00: Toprol XL) Bowman MG Extended 00 Do Not Release Crush Tablet [Toprol] clopidogrel No Notes: Eleazar hilton - (Same As: l 15:00: Plavix) Bowman 00 Protonix No Notes: Memoria -07 Tablet l 15:00: should not Bowman 00 be chewed or crushed. (Same as: Protonix) Aspirin 325 No Notes: Eleaazr hilton MG Oral 09-04 Take with l Tablet 15:00: food. Maciej 00 Omeprazole No 20 mg, Memor ia 09-04 Route: PO, l 15:00: Drug form: Bowman ECTAB, BID, Dosing Weight 50.92, kg, Start [...] l / 14:00: Duoneb) Maciej Ipratropium 00 [place] 0.167 MG/ML Inhalant Solution methylPREDN No Notes: Eleazar hilton ISolone 09-04 (Same l SODium 14:00: as:Solu-ME Caroline nn SUCCinate 00 DROL, A-Methapre d) methylPREDN No Notes: Eleazar hilton ISolone 07 (Same l SODium 04:05: as:Solu-ME Caroline nn SUCCinate 00 DROL, A-Methapre d) Albuterol No Notes: Memori a 0.833 MG/ML 09-04 (Same as: l / 04:05: Duoneb) Bowman Ipratropium 00 [place] 0.167 MG/ML Inhalant Solution Saline No Notes: [...] tab, PO, l tablet 17:40: Daily, # Bowman 00 30 tab, 1 Refill(s) atorvastati 2014-08 [...] as: l / 03:38: Duoneb) Ipratropium 00 [place] 0.167 MG/ML Inhalant Solution Sodium 2014-08 No 250 mL, Memoria Chloride -18 Route: l 0.9% IV 03:26: IVPB, Maciej 00 Start date: 07/15/15 21:26:00, Duration: 30 day, Stop date: 08/14/15 21:25:00, PRN Line Flush BD Normal 2014-08 No Notes: Memori a Saline 09-15 (Same as: l Flush 03:26: BD Bowman 00 Posiflush) Nitroglycer 2014-08 No Notes: Eleazar hilton in 09-15 (Same l 03:23: as:Nitroqu Maciej 00 ick, Nitrostat) "Do Not Crush" Sublingual tablet Ibuprofen 2014-08 No Notes: Memori a 09-15 (Same as: l 03:20: Motrin) Bowman 00 "Do Not Crush" Give with food. Baclofen 2014-08 No Notes: Memoria 09-15 (Same As: l 03:20: Lioresal) Bowman 00 200 ACTUAT 2014-08 No Notes: Memor ia Albuterol 09-15 Albuterol l 0.09 03:20: 90 Bowman MG/ACTUAT 00 microgram/ Metered inh 8gm Dose [...] 0.9% 1-17 (Same as: l 20:15: BD Bowman 00 Posiflush) Sodium No 500 mL, Memoria Chloride 9-20 500 ml/hr, l 0.154 21:02: Infuse Bowman MEQ/ML 00 Over: 1 Injectable Hour, Solution [...] tab, PO, l tablet 23:45: TID, PRN Bowman for dizziness, X 20 day, # 60 tab, 0 Refill(s) Acetaminoph No Notes: Eleazar hilton en 05-02 (Same as: l 23:21: Tylenol) Antivert No Notes: Memoria 05-02 (Same as: l 21:38: Antivert) baclofen 10 Yes 10 mg = 1 M emoria mg oral -14 tab, PO, l tablet 19:32: TID, PRN Maciej 00 Spasms, # 21 tab, 0 Refill(s) Acetaminoph Yes 1 tab, PO, Memoria en 300 MG / 8-14 Q6H, PRN l Codeine 19:31: pain, X 5 Caroline nn Phosphate 00 day, # 20 60 MG Oral tab, 0 Tablet Refill(s) [Tylenol with Codeine #4] Acetaminoph No Notes: Eleazar hilton en 325 MG / 04-11 Same as l Hydrocodone 17:21: [place] Caroline nn Bitartrate 00 325-7.5mg 7.5 MG Oral Do not Tablet exceed [[place] 4gm/day of 7.5/325] acetaminop hen. ibuprofen Yes [...] Readi-Cat 2 lactulose No Notes: Memori a 03-23 (Same l 17:35: as:Chronul Bowman 00 ac) atorvastati No Notes: Eleazar hilton [...] hilton 7-25 (Same as: l 02:12: Zofran) Bowman 00 MEDICATION WASTE Product Size: 4 mg Product Wasted: ___ mg Docusate No Notes: Memoria 7-25 (Same as: l 02:12: Colace) Bowman 00 (Do Not Crush) Acetaminoph No Notes: Do M emoria en 7-25 not exceed l 02:12: 4 gm/day. Maciej 00 (Same as: Tylenol) Budesonide No Notes: Memor ia 0.25 MG/ML 7-25 (Same As: l Inhalant 01:00: Pulmicort) Her farooq Solution 00 [Pulmicort] Albuterol No Notes: Memori a 0.833 MG/ML 7-25 (Same as: l / 01:00: Duoneb) Maciej Ipratropium 00 [place] 0.167 MG/ML Inhalant Solution [DuoNeb] Potassium No Notes: Memori a Chloride 24 (Same as: l 1.33 MEQ/ML 23:15: Potassium H erm Oral 00 Chloride) Solution Sodium No 1,000 mL, Memori a Chloride 24 1,000 l 0.154 22:23: ml/hr, Bowman MEQ/ML 00 Infuse Injectable Over: 1 Solution hr, Route: IV, ONCE, Priority: STAT, Dosing Weight 50 kg, Start date: 03/21/15 17:23:00, Duration: 1 doses or times, Stop date: 03/21/15 17:23:00 Sodium No 1,000 mL, Memori a Chloride 24 1,000 l 0.154 21:12: ml/hr, Bowman MEQ/ML 00 Infuse Injectable Over: 1 Solution hr, Route: IV, 1,000, Drug form: INJ, ONCE, Priority: STAT, Dosing Weight 50 kg, Start date: 03/21/15 16:12:00, Duration: 1 doses or times, Stop date: 03/21/15 16:12:00 Ondansetron No Notes: Eleazar hilton 03-21 (Same as: l 20:43: Zofran) MEDICATION WASTE Product Size: 4 mg Product Wasted: ___ mg Morphine No Notes: Memoria -24 (Same l 20:43: as:MORPhin Bowman 00 e Sulfate) Aspirin No Notes: Memoria 24 Take with l 20:43: food. Maciej 00 Saline No Notes: Memoria Flush 0.9% 03-21 (Same as: l 20:43: BD Maciej 00 Posiflush) tramadol No 50 mg = 1 Eleazar hilton hydrochlori 14 tab, PO, l de 50 MG 22:02: Q4H, PRN Caroline nn Oral Tablet 00 pain, # 20 [Ultram] tab, 0 Refill(s) Aspirin No Notes: Memoria 7-14 Take with l 20:32: food. Bowman 00 Morphine No Notes: Memoria 7-14 (Same [...] 03-05 Instructio l 09:13: ns: Use as Bowman directed 200 ACTUAT Yes 1 puff, Eleazar hilton Albuterol 08 INHALATION l 0.09 09:12: , Q4H, PRN Bowman MG/ACTUAT 00 for Metered wheezing, Dose # [...] Memoria 6-30 (Same As: l 14:00: Plavix) Omeprazole No 20 mg, Memor ia 6-30 Route: PO, l 14:00: Drug form: ECTAB, BID, Dosing Weight 50, kg, Start date: 02/25/15 9:00:00, Duration: 30 day, Stop date: 03/26/15 17:00:00 Nicoderm No Notes: Memoria C-Q 6-30 (Same as: l 14:00: Habitrol) "Remove old patch before applicatio n of new patch" Aspirin No Notes: Memoria 6-30 Take with l 14:00: food. 00 24 HR Yes = 1 patch, Memori [...] tab, PO, l Tablet 13:32: Daily, # Bowman [Plavix] 00 30 tab, 0 Refill(s) Protonix [...] Posiflush) potassium No Notes: Memori a chloride 630 Infuse at l 02:00: a rate of 10 mEq/hr. (Same as: KCL) metoprolol No Notes: Memor ia tartrate 02-25 (Same as: l 02:00: Lopressor) cyclobenzap No Notes: Eleazar hilton rine 30 (Same As: l 01:53: Flexeril) Morphine No [...] of new patch. Plavix No Notes: Memoria 02-18 (Same As: l 14:00: Plavix) atorvastati No [...] 6-22 ml/hr, l 0.9% IV 21:45: ONCE, Maciej 00 Start date: 02/17/15 16:45:00, 500 ml metoprolol Yes 12.5 mg = Me moria tartrate 25 6-22 0.5 tab, l mg oral 20:24: PO, BID, 0 Herm sho tablet 00 Refill(s) naproxen No 500 mg = 1 Mem oria 500 mg oral 6-22 tab, PO, l tablet 20:24: BID, PRN Bowman 00 Pain, # 30 tab, 0 Refill(s) [...] PO, l oral tablet 20:24: Bedtime, # Bowman 00 30 tab, 0 Refill(s) omeprazole Yes 20 mg = 1 Me moria 20 mg oral 6-22 tab, PO, l enteric 17:29: BID, # 30 Caroline nn coated 00 tab, 0 tablet Refill(s) 24 HR Yes = 1 patch, Memori a Nicotine -22 TOP, l 0.875 MG/HR 17:00: Daily, X He rmann Transdermal 00 14 day, # Patch 14 patch, [Nicoderm 0 C-Q] Refill(s) atorvastati Yes 40 mg = 2 M emoria n 20 mg 6-22 tab, PO, l oral tablet 17:00: Bedtime, # Bowman 00 60 tab, 0 Refill(s) Nicotine No Notes: Memoria -22 (Same as: l 14:00: Habitrol) Bowman 00 "Remove old patch before applicatio n of new patch" Aspirin 81 No Notes: Do Me moria MG Enteric 22 not crush l Coated 14:00: or chew. [...] ia 02-17 Nurse to l 02:30: ensure Maciej 00 documentat ion of patient education per anticoagul [...] Memori a 02-17 (Same As: l 02:08: Dulcolax, Bowman 00 Bisco-Lax) Ondansetron No Notes: Eleazar hilton 02-17 (Same as: l 02:08: Zofran) MEDICATION WASTE Product Size: 4 mg Product Wasted: ___ mg Nitroglycer No Notes: 1 Me moria in 0.02 02-17 gram is l MG/MG 02:06: approximat Kristopher n Topical 00 lv 1 inch Ointment of nitroglyce rin ointment (20 mg NTG per gram) (Same as:Nitro-B id) Nitroglycer No Notes: Eleazar ihlton in 02-17 (Same l 02:06: as:Nitroqu ick, Nitrostat) "Do Not Crush" Sublingual tablet Acetaminoph No Notes: Do M emoria en 02-17 not exceed l 02:06: 4 gm/day. Maciej 00 (Same as: Tylenol) Acetaminoph No Notes: Eleazar hilton en 325 MG / 02-17 (Same as: l Hydrocodone 02:06: [place] Caroline nn Bitartrate 00 325/5) Do 5 MG Oral not exceed Tablet 4gm/day of acetaminop hen. Morphine No Notes: Memoria 02-17 (Same l 02:06: as:MORPhin Maciej 00 e Sulfate) Sodium No 1,000 mL, Memori a Chloride 02-17 Rate: 125 l 0.154 02:06: ml/hr, Bowman MEQ/ML 00 Infuse Injectable over: 8 Solution [...] 02-17 Route: l 0.9% IV 00:52: IVPB, Bowman 00 Start date: 02/16/15 19:52:00, Duration: 30 day, Stop date: 03/18/15 19:51:00, PRN Line Flush BD Normal No Notes: Memori a Saline 02-17 (Same as: l Flush 00:52: BD Bowman Posiflush) Morphine No Notes: Memoria 02-17 (Same l 00:28: as:MORPhin Maciej 00 e Sulfate) Nitroglycer No Notes: Eleazar hilton in 02-17 (Same l 00:28: as:Nitroqu Maciej 00 ick, Nitrostat) "Do Not Crush" Sublingual tablet Aspirin No Notes: (Do Eleazar hilton 02-16 Not Crush) l 22:49: Do not Bowman crush or chew. Ondansetron No Notes: Eleazar hilton 4-26 (Same as: l 21:22: Zofran) Morphine No Notes: Memoria 4-26 (Same l 21:22: as:MORPhin e Sulfate) Aspirin / No Notes: Memori a Calcium 4-26 Take with l Carbonate 21:22: food. Aspirin 81 Yes 81 mg = 1 Me moria MG Enteric 4-21 tab, PO, l Coated 20:08: Daily, # Bowman Tablet 00 90 tab, 0 Refill(s) metoprolol Yes 12.5 mg = Me moria tartrate 25 4-21 0.5 tab, l mg oral 20:08: PO, BID, # Herm sho tablet 00 90 tab, 0 Refill(s) clopidogrel Yes 75 mg = 1 M emoria 75 mg oral 4-21 tab, PO, l tablet 20:08: Daily, # Bowman 00 90 tab, 0 Refill(s) atorvastati Yes [...] n 12-17 (Same As: l 03:28: Lipitor) Bowman 00 Saline No Notes: Memoria Flush 0.9% [...] Chloride 20 1,000 l 0.154 23:43: ml/hr, Bowman MEQ/ML 00 Infuse Injectable Over: 1 Solution hr, Route: IV, 1,000, Drug form: INJ, ONCE, Priority: STAT, Dosing Weight 48.636 kg, Start date: 12/16/13 18:43:00, Duration: 1 doses or times, Stop date: 12/16/13 18:43:00 Iohexol No Special Memoria 20 Instructio l 21:17: ns: Dose = Bowman 00 2.2ml/kg, Max dose = 100ml -- [...] n 3-14 tab, l 02:00: Route: PO, Bowman 00 Drug form: TAB, Bedtime, Dosing Weight [...] PO, l oral tablet 20:52: Bedtime, # Bowman 00 30 tab, 0 Refill(s) Aspirin 81 Yes 81 mg = 1 Me moria MG Chewable 3-13 tab, PO, l Tablet 20:52: Daily, # Maciej 00 60 tab, 0 Refill(s) Plavix 2013- No 75 mg, 1 Memoria 3-13 tab, l 14:00: Route: PO, Maciej 00 Drug form: TAB, Daily, Dosing Weight 63.636, [...] 7:06:00, Duration: 30 day, Stop date: 12/08/13 7:05:00([facility] as: BD Posiflush) Nitroglycer No 0.4 mg, 1 M emoria in 11-08 tab, l 12:06: Route: SL, Maciej Drug form: TAB, Q5Min, Dosing Weight 63.636, kg, PRN Chest Pain, Start date: 11/08/13 7:06:00, Duration: 30 day, Stop date: 12/08/13 7:01:00([facility] as:Nitroqu ick, Nitrostat) "Do Not Crush" Sublingual [...] Systolic (mm Hg) 2017-01-19 22:28:00 Eleazar rial Bowman Diastolic (mm Hg) 2017-01-19 22:28:00 Mem orial Maciej Respitory Rate 2017-01-19 22:28:00 Memori al Maciej Respitory Rate 2017-01-19 21:00:00 Memori al [place] Systolic (mm Hg) 2017-01-19 20:00:00 Eleazar rial Maciej Diastolic (mm Hg) 2017-01-19 20:00:00 Mem orial [place] Weight 2017-01-19 17:23:00 [facility] Maciej BMI Calculated 2017-01-19 17:23:00 [facility] al [place] Height 2017-01-19 17:23:00 152.4 cm [facility] Maciej Temperature Oral (F) 2017-01-19 17:23:00 97.0 F [facility] Heart Rate 2017-01-19 17:23:00 [facility] Maciej Systolic (mm Hg) 2017-01-17 02:10:00 Eleazar rial Bowman Diastolic (mm Hg) 2017-01-17 02:10:00 Mem orial Maciej Respitory Rate 2017-01-17 02:10:00 [facility] al [place] Systolic (mm Hg) 2017-01-17 01:21:00 Eleazar rial [place]man Diastolic (mm Hg) 2017-01-17 01:21:00 Mem orial Maciej Respitory Rate 2017-01-17 01:21:00 [facility] al Maciej Temperature Oral (F) 2017-01-17 01:21:00 98.1 F [facility] Maciej Systolic (mm Hg) 2017-01-17 00:28:00 Eleazar rial Bowman Diastolic (mm Hg) 2017-01-17 00:28:00 Mem orial Maciej Respitory Rate 2017-01-17 00:28:00 [facility] [place] Heart Rate 2017-01-16 23:24:00 [facility] Maciej Temperature Oral (F) 2017-01-16 23:24:00 98 F [facility] Maciej Weight 2017-01-16 23:24:00 [facility] [place] Heart Rate 2016-11-29 03:44:00 [facility] Maciej Systolic (mm Hg) 2016-11-29 03:44:00 Eleazar rial Maciej Diastolic (mm Hg) 2016-11-29 03:44:00 Mem orial Maciej Respitory Rate 2016-11-29 03:44:00 [facility] Maciej Temperature Oral (F) 2016-11-29 03:44:00 98.7 F [facility]iej Heart Rate 2016-11-29 03:24:00 [facility] [place] Respitory Rate 2016-11-29 03:24:00 [facility] [place] Systolic (mm Hg) 2016-11-29 03:24:00 Eleazar rial Maciej Diastolic (mm Hg) 2016-11-29 03:24:00 Mem orial [place] Heart Rate 2016-11-29 02:51:00 [facility] [place] Respitory Rate 2016-11-29 02:51:00 [facility] al [place] Systolic (mm Hg) 2016-11-29 02:51:00 Eleazar rial Bowman Diastolic (mm Hg) 2016-11-29 02:51:00 Mem orial Maciej Weight 2016-11-29 00:21:00 [facility] Maciej BMI Calculated 2016-11-29 00:21:00 [facility] al Maciej Height 2016-11-29 00:21:00 152.4 cm [facility] Maciej Temperature Oral (F) 2016-11-29 00:21:00 98.6 F [facility]iej Respitory Rate 2016-11-07 02:47:00 [facility] al Maciej Heart Rate 2016-11-07 02:47:00 [facility] [place] Temperature Oral (F) 2016-11-07 02:47:00 98.2 F [facility] [place] Systolic (mm Hg) 2016-11-07 02:47:00 Eleazar rial Maciej Diastolic (mm Hg) 2016-11-07 02:47:00 Mem orial [place] Heart Rate 2016-11-07 02:22:00 [facility] Maciej Respitory Rate 2016-11-07 02:22:00 [facility] al [place] Systolic (mm Hg) 2016-11-07 02:22:00 Eleazar rial Bowman Diastolic (mm Hg) 2016-11-07 02:22:00 Mem orial Maciej Weight 2016-11-06 23:37:00 [facility] [place] Heart Rate 2016-11-06 23:37:00 [facility] [place] Temperature Oral (F) 2016-11-06 23:37:00 98.3 F [facility] Maciej Respitory Rate 2016-11-06 23:37:00 Mem[facility] al Maciej Systolic (mm Hg) 2016-11-06 23:37:00 Eleazar rial Maciej Diastolic (mm Hg) 2016-11-06 23:37:00 Mem orial Maciej Respitory Rate 2016-10-11 18:24:00 [facility] al [place] Temperature Oral (F) 2016-10-11 18:24:00 97.9 F [facility] [place] Systolic (mm Hg) 2016-10-11 18:24:00 Eleazar rial Bowman Diastolic (mm Hg) 2016-10-11 18:24:00 Mem orial Maciej Heart Rate 2016-10-11 18:24:00 [facility] [place] Heart Rate 2016-10-11 13:53:00 [facility] Maciej Systolic (mm Hg) 2016-10-11 13:53:00 Eleazar rial Bowman Diastolic (mm Hg) 2016-10-11 13:53:00 Mem orial [place]man Temperature Oral (F) 2016-10-11 13:53:00 98.1 F [facility] Maciej Temperature Oral (F) 2016-10-11 10:16:00 99.0 F [facility] Respitory Rate 2016-10-11 10:16:00 [facility] al Maciej Heart Rate 2016-10-11 10:16:00 [facility] Maciej Systolic (mm Hg) 2016-10-11 10:16:00 Eleazar rial Maciej Diastolic (mm Hg) 2016-10-11 10:16:00 Mem o[facility] Maciej Weight 2016-10-11 06:46:00 [facility] Maciej BMI Calculated 2016-10-11 06:46:00 [facility] al [place] Height 2016-10-11 06:46:00 152.4 cm [facility] Maciej Respitory Rate 2016-10-11 06:39:00 [facility] al Maciej Height 2016-10-10 17:48:00 152.4 cm [facility] Maciej BMI Calculated 2016-10-10 17:48:00 [facility] [place] Weight 2016-10-10 17:48:00 [facility] [place] BMI Calculated 2016-09-15 04:26:00 [facility] [place] Weight 2016-09-15 04:26:00 [facility] [place] Height 2016-09-15 04:26:00 152.4 cm [facility] [place] Systolic (mm Hg) 2016-09-15 04:26:00 Eleazar rial Bowman Diastolic (mm Hg) 2016-09-15 04:26:00 Mem orial [place] Respitory Rate 2016-09-15 04:26:00 [facility]ori al Maciej Heart Rate 2016-09-15 04:26:00 [facility] [place] Temperature Oral (F) 2016-09-15 04:26:00 98.5 F [facility] Maciej Respitory Rate 2016-04-14 06:22:00 [facility] al Maciej Temperature Oral (F) 2016-04-14 06:22:00 98.7 F [facility] Maciej Systolic (mm Hg) 2016-04-14 06:22:00 Eleazar rial Bowman Diastolic (mm Hg) 2016-04-14 06:22:00 Mem orial [place] Heart Rate 2016-04-14 06:22:00 [facility] [place] BMI Calculated 2016-04-14 02:12:00 Mem[facility] al Maciej Weight 2016-04-14 02:12:00 [facility] Maciej Temperature Oral (F) 2016-04-14 02:12:00 99.2 F [facility] [place] Height 2016-04-14 02:12:00 152.4 cm [facility] Respitory Rate 2016-04-14 02:12:00 Memori al [place]man Systolic (mm Hg) 2016-04-14 02:12:00 Eleazar rial Maciej Diastolic (mm Hg) 2016-04-14 02:12:00 Mem orial [place] Heart Rate 2016-04-14 02:12:00 [facility] Maciej Temperature Oral (F) 2016-03-12 17:00:00 97.8 F [facility] Heart Rate 2016-03-12 17:00:00 [facility] Maciej Respitory Rate 2016-03-12 17:00:00 Memori al [place] Systolic (mm Hg) 2016-03-12 17:00:00 Eleazar rial Maciej Diastolic (mm Hg) 2016-03-12 17:00:00 Mem orial Maciej Respitory Rate 2016-03-12 12:54:00 Memori al [place] Systolic (mm Hg) 2016-03-12 12:30:00 Eleazar rial Bowman Diastolic (mm Hg) 2016-03-12 12:30:00 Mem orial Maciej Respitory Rate 2016-03-12 12:30:00 [facility] al [place] Heart Rate 2016-03-12 12:30:00 [facility] [place] Temperature Oral (F) 2016-03-12 12:30:00 98.2 F [facility] Temperature Oral (F) 2016-03-12 10:26:00 98.0 F [facility] Heart Rate 2016-03-12 10:26:00 [facility] [place] Systolic (mm Hg) 2016-03-12 10:26:00 Eleazar rial Bowman Diastolic (mm Hg) 2016-03-12 10:26:00 Mem orial Maciej Height 2016-03-11 19:45:00 152.4 cm [facility] Maciej BMI Calculated 2016-03-11 19:45:00 Mem[facility] al [place] Weight 2016-03-11 19:45:00 [facility] [place] Respitory Rate 2016-03-06 01:44:00 Memori al [place] Systolic (mm Hg) 2016-03-06 01:44:00 Eleazar rial Bowman Diastolic (mm Hg) 2016-03-06 01:44:00 Mem orial [place] Heart Rate 2016-03-06 01:44:00 [facility] Maciej Temperature Oral (F) 2016-03-06 01:44:00 98.1 F [facility] Maciej BMI Calculated 2016-03-05 21:55:00 Memori al Maciej Weight 2016-03-05 21:55:00 [facility] Maciej Systolic (mm Hg) 2016-03-05 21:55:00 Eleazar rial Bowman Diastolic (mm Hg) 2016-03-05 21:55:00 Mem orial Maciej Heart Rate 2016-03-05 21:55:00 [facility] [place] Height 2016-03-05 21:55:00 152.4 cm [facility] [place] Temperature Oral (F) 2016-03-05 21:55:00 98.3 F [facility] Respitory Rate 2016-03-05 21:55:00 Memori al [place] Respitory Rate 2016-03-01 01:23:00 Memori al [place] Systolic (mm Hg) 2016-03-01 01:23:00 Eleazar rial Maciej Diastolic (mm Hg) 2016-03-01 01:23:00 Mem orial [place]man Temperature Oral (F) 2016-03-01 01:23:00 98.2 F [facility] Heart Rate 2016-03-01 01:23:00 [facility] Maciej Respitory Rate 2016-02-29 23:25:00 Memori al [place] Temperature Oral (F) 2016-02-29 22:27:00 98.3 F [facility] Heart Rate 2016-02-29 22:27:00 [facility] [place] Respitory Rate 2016-02-29 22:27:00 Memori al Maciej Systolic (mm Hg) 2016-02-29 22:27:00 Eleazar rial Bowman Diastolic (mm Hg) 2016-02-29 22:27:00 Mem orial [place] Respitory Rate 2015-09-05 14:47:00 Memori al [place] Systolic (mm Hg) 2015-09-05 14:47:00 Eleazar rial Bowman Diastolic (mm Hg) 2015-09-05 14:47:00 Mem orial [place] Heart Rate 2015-09-05 14:47:00 [facility] Maciej Weight 2015-09-05 11:00:00 [facility] Maciej Systolic (mm Hg) 2015-09-05 10:00:00 Eleazar rial Bowman Diastolic (mm Hg) 2015-09-05 10:00:00 Mem orial [place] Respitory Rate 2015-09-05 10:00:00 Memori al Maciej Heart Rate 2015-09-05 10:00:00 [facility] [place] Respitory Rate 2015-09-05 06:00:00 Memori al [place] Systolic (mm Hg) 2015-09-05 06:00:00 Eleazar rial Maciej Diastolic (mm Hg) 2015-09-05 06:00:00 Mem orial Maciej Heart Rate 2015-09-05 06:00:00 [facility]iej Weight 2015-09-04 11:00:00 [facility] [place] Weight 2015-09-04 09:15:00 [facility] BMI Calculated 2015-09-04 09:15:00 Memori al [place] Height 2015-09-04 09:15:00 160.02 cm [facility] Temperature Oral (F) 2015-09-04 09:06:00 98.3 F [facility] Height 2015-09-04 03:35:00 152.4 cm [facility] Maciej BMI Calculated 2015-09-04 03:35:00 Memori al Maciej Temperature Oral (F) 2015-09-04 03:35:00 98.7 F [facility] Maciej Systolic (mm Hg) 2015-07-16 13:56:00 Eleazar rial Bowman Diastolic (mm Hg) 2015-07-16 13:56:00 Mem orial Maciej Respitory Rate 2015-07-16 13:56:00 Memori al [place] Heart Rate 2015-07-16 13:56:00 [facility] Maciej Temperature Oral (F) 2015-07-16 13:56:00 98.0 F [facility] Maciej Systolic (mm Hg) 2015-07-16 13:55:00 Eleazar rial Maciej Diastolic (mm Hg) 2015-07-16 13:55:00 Mem orial [place] Respitory Rate 2015-07-16 13:55:00 Memori al Maciej Heart Rate 2015-07-16 13:55:00 [facility] [place] Temperature Oral (F) 2015-07-16 13:55:00 97.4 F [facility] Maciej Systolic (mm Hg) 2015-07-16 10:00:00 Eleazar rial Bowman Diastolic (mm Hg) 2015-07-16 10:00:00 Mem orial Maciej Respitory Rate 2015-07-16 10:00:00 [facility] al [place] Heart Rate 2015-07-16 10:00:00 [facility] Maciej Temperature Oral (F) 2015-07-16 10:00:00 97.9 F [facility]iej Height 2015-07-16 01:30:00 152.4 cm [facility] Maciej Weight 2015-07-16 01:30:00 [facility] [place] BMI Calculated 2015-07-16 01:30:00 Mem[facility] al [place] Height 2015-07-15 18:10:00 152.4 cm [facility] BMI Calculated 2015-07-15 18:10:00 [facility] al [place] Weight 2015-07-15 18:10:00 [facility] [place] Weight 2015-07-05 04:10:00 [facility] [place] Height 2015-07-05 04:10:00 152.4 cm [facility] Maciej BMI Calculated 2015-07-05 04:10:00 Mem[facility] al Maciej Temperature Oral (F) 2015-07-05 04:10:00 98.3 F [facility]iej Respitory Rate 2015-07-05 04:10:00 [facility] al [place] Heart Rate 2015-07-05 04:10:00 [facility] [place] Systolic (mm Hg) 2015-07-05 04:10:00 Eleazar rial Maciej Diastolic (mm Hg) 2015-07-05 04:10:00 Mem o[facility] Maciej BMI Calculated 2015-07-04 18:05:00 [facility] Maciej Weight 2015-07-04 18:05:00 [facility] [place] Height 2015-07-04 18:05:00 152.4 cm [facility] Temperature Oral (F) 2015-07-04 18:05:00 97.9 F [facility] Respitory Rate 2015-07-04 18:05:00 [facility] [place] Heart Rate 2015-07-04 18:05:00 [facility] [place] Systolic (mm Hg) 2015-07-04 18:05:00 Eleazar rial Maciej Diastolic (mm Hg) 2015-07-04 18:05:00 Mem o[facility] [place] BMI Calculated 2015-06-04 04:13:00 [facility] [place] Weight 2015-06-04 04:13:00 [facility] Maciej Height 2015-06-04 04:13:00 152.4 cm [facility] Maciej Temperature Oral (F) 2015-06-04 04:13:00 98.8 F [facility] [place] Respitory Rate 2015-06-04 04:13:00 [facility] al Maciej Heart Rate 2015-06-04 04:13:00 [facility] Maciej Systolic (mm Hg) 2015-06-04 04:13:00 Eleazar rial Maciej Diastolic (mm Hg) 2015-06-04 04:13:00 Mem orial [place] Systolic (mm Hg) 2015-05-18 22:47:00 Eleazar rial Maciej Diastolic (mm Hg) 2015-05-18 22:47:00 Mem o[facility] Maciej Temperature Oral (F) 2015-05-18 22:47:00 96.6 F [facility] Heart Rate 2015-05-18 22:47:00 [facility]iej Respitory Rate 2015-05-18 22:47:00 Mem[facility] al Maciej Systolic (mm Hg) 2015-05-18 22:30:00 Eleazar rial Bowman Diastolic (mm Hg) 2015-05-18 22:30:00 Mem orial Maciej Systolic (mm Hg) 2015-05-18 21:00:00 Eleazar rial Maciej Diastolic (mm Hg) 2015-05-18 21:00:00 Mem orial [place] Temperature Oral (F) 2015-05-18 21:00:00 98.1 F [facility] Respitory Rate 2015-05-18 21:00:00 Mem[facility] al [place] Temperature Oral (F) 2015-05-18 19:21:00 98.2 F [facility] Heart Rate 2015-05-18 19:21:00 [facility] [place] Respitory Rate 2015-05-18 19:21:00 [facility] al [place] Heart Rate 2015-05-18 17:10:00 [facility]iej Respitory Rate 2015-05-09 20:00:00 [facility] al [place] Systolic (mm Hg) 2015-05-09 20:00:00 Eleazar rial Bowman Diastolic (mm Hg) 2015-05-09 20:00:00 [facility] o[facility] [place] Temperature Oral (F) 2015-05-09 20:00:00 97.5 F [facility] Temperature Oral (F) 2015-05-09 19:10:00 97.5 F [facility] [place] Systolic (mm Hg) 2015-05-09 19:10:00 Eleazar rial [place]man Diastolic (mm Hg) 2015-05-09 19:10:00 Mem o[facility] Maciej Respitory Rate 2015-05-09 19:10:00 Mem[facility] al Maciej Systolic (mm Hg) 2015-05-09 18:41:00 Eleazar rial Bowman Diastolic (mm Hg) 2015-05-09 18:41:00 [facility] o[facility] [place] Weight 2015-05-09 17:37:00 [facility] BMI Calculated 2015-05-09 17:37:00 [facility] Maciej Height 2015-05-09 17:37:00 152.4 cm [facility] Temperature Oral (F) 2015-05-09 17:37:00 98.9 F [facility] Respitory Rate 2015-05-09 17:37:00 [facility] Maciej Heart Rate 2015-05-09 17:37:00 [facility] [place] Systolic (mm Hg) 2015-05-03 00:04:00 Eleazar rial [place]man Diastolic (mm Hg) 2015-05-03 00:04:00 Mem o[facility] Maciej Heart Rate 2015-05-03 00:04:00 [facility] Respitory Rate 2015-05-03 00:04:00 [facility] Maciej Temperature Oral (F) 2015-05-03 00:04:00 98.5 F [facility] Heart Rate 2015-05-02 21:17:00 [facility] Respitory Rate 2015-05-02 21:17:00 [facility] al Maciej Systolic (mm Hg) 2015-05-02 21:17:00 Eleazar rial Maciej Diastolic (mm Hg) 2015-05-02 21:17:00 [facility] o[facility] Maciej Heart Rate 2015-05-02 20:24:00 [facility] [place] Temperature Oral (F) 2015-05-02 20:24:00 98.1 F [facility] [place] Systolic (mm Hg) 2015-05-02 20:24:00 Eleazar rial Maciej Diastolic (mm Hg) 2015-05-02 20:24:00 Mem o[facility] Maciej Respitory Rate 2015-05-02 20:24:00 [facility] [place] Temperature Oral (F) 2015-05-02 18:35:00 98.9 F [facility] Systolic (mm Hg) 2015-04-11 19:45:00 Eleazar rial [place]man Diastolic (mm Hg) 2015-04-11 19:45:00 Mem o[facility] [place] Temperature Oral (F) 2015-04-11 19:45:00 98.7 F [facility] [place] Respitory Rate 2015-04-11 19:45:00 [facility] [place] Heart Rate 2015-04-11 19:45:00 [facility] Weight 2015-04-11 16:35:00 [facility] [place] Temperature Oral (F) 2015-04-11 16:35:00 98.4 F [facility] [place] Systolic (mm Hg) 2015-04-11 16:35:00 Eleazar rial [place]man Diastolic (mm Hg) 2015-04-11 16:35:00 Mem o[facility] [place] Respitory Rate 2015-04-11 16:35:00 [facility] Maciej Heart Rate 2015-04-11 16:35:00 [facility] [place] Systolic (mm Hg) 2015-03-30 22:06:00 Eleazar rial [place]man Diastolic (mm Hg) 2015-03-30 22:06:00 Mem o[facility] Maciej Temperature Oral (F) 2015-03-30 22:06:00 97.9 F [facility] Heart Rate 2015-03-30 22:06:00 [facility] [place] Respitory Rate 2015-03-30 22:06:00 [facility] Maciej BMI Calculated 2015-03-30 19:44:00 [facility] [place] Height 2015-03-30 19:44:00 152.4 cm [facility] Systolic (mm Hg) 2015-03-30 19:44:00 Eleazar rial Maciej Diastolic (mm Hg) 2015-03-30 19:44:00 [facility] o[facility] Maciej Respitory Rate 2015-03-30 19:44:00 [facility] Heart Rate 2015-03-30 19:44:00 [facility] [place] Weight 2015-03-30 19:44:00 [facility] Temperature Oral (F) 2015-03-30 19:44:00 97.9 F [facility] Respitory Rate 2015-03-24 21:57:00 [facility] Maciej Temperature Oral (F) 2015-03-24 21:57:00 97.9 F [facility] Heart Rate 2015-03-24 21:57:00 [facility] Systolic (mm Hg) 2015-03-24 21:57:00 Eleazar rial [place]man Diastolic (mm Hg) 2015-03-24 21:57:00 [facility] o[facility] [place] Heart Rate 2015-03-24 17:28:00 [facility] Temperature Oral (F) 2015-03-24 17:28:00 98.8 F [facility] Respitory Rate 2015-03-24 17:28:00 [facility] Maciej Systolic (mm Hg) 2015-03-24 17:28:00 Eleazar rial [place]man Diastolic (mm Hg) 2015-03-24 17:28:00 [facility] [place] Heart Rate 2015-03-24 13:08:00 [facility] [place] Temperature Oral (F) 2015-03-24 13:08:00 98.4 F [facility] Respitory Rate 2015-03-24 13:08:00 [facility] [place] Systolic (mm Hg) 2015-03-24 13:08:00 Eleazar rial [place] Diastolic (mm Hg) 2015-03-24 13:08:00 [facility] [place] BMI Calculated 2015-03-22 01:41:00 [facility] [place] Weight 2015-03-22 01:41:00 [facility] Height 2015-03-22 01:41:00 152.4 cm [facility] BMI Calculated 2015-03-21 18:42:00 [facility] Weight 2015-03-21 18:42:00 [facility] [place] Height 2015-03-21 18:42:00 152.4 cm [facility] Systolic (mm Hg) 2015-03-11 22:39:00 Eleazar rial Maciej Diastolic (mm Hg) 2015-03-11 22:39:00 [facility]iej Respitory Rate 2015-03-11 22:39:00 [facility] [place] Heart Rate 2015-03-11 22:39:00 [facility] Temperature Oral (F) 2015-03-11 22:39:00 98.1 F [facility] BMI Calculated 2015-03-11 19:44:00 [facility] [place] Weight 2015-03-11 19:44:00 [facility] Systolic (mm Hg) 2015-03-11 19:44:00 Eleazar rial Maceij Diastolic (mm Hg) 2015-03-11 19:44:00 [facility]iej Temperature Oral (F) 2015-03-11 19:44:00 97.9 F [facility] Heart Rate 2015-03-11 19:44:00 [facility] Respitory Rate 2015-03-11 19:44:00 [facility] [place] Height 2015-03-11 19:44:00 152.4 cm [facility] Temperature Oral (F) 2015-03-05 10:15:00 97.9 F [facility] Systolic (mm Hg) 2015-03-05 10:15:00 Eleazar rial Maciej Diastolic (mm Hg) 2015-03-05 10:15:00 [facility] Respitory Rate 2015-03-05 10:15:00 [facility] [place] Respitory Rate 2015-03-05 09:53:00 [facility] [place] Temperature Oral (F) 2015-03-05 09:53:00 97.8 F [facility] Systolic (mm Hg) 2015-03-05 09:53:00 Eleazar rial [place] Diastolic (mm Hg) 2015-03-05 09:53:00 [facility] Respitory Rate 2015-03-05 06:30:00 [facility] [place] Systolic (mm Hg) 2015-03-05 06:30:00 Eleazar rial [place] Diastolic (mm Hg) 2015-03-05 06:30:00 [facility] [place] Temperature Oral (F) 2015-03-05 06:20:00 97.7 F [facility] Heart Rate 2015-03-05 06:20:00 [facility] Heart Rate 2015-03-05 05:46:00 [facility] Height 2015-03-05 05:46:00 152.4 cm [facility] BMI Calculated 2015-03-05 05:46:00 [facility] Weight 2015-03-05 05:46:00 [facility] Systolic (mm Hg) 2015-02-25 20:55:00 Eleazar rial Maciej Diastolic (mm Hg) 2015-02-25 20:55:00 [facility] [place] Temperature Oral (F) 2015-02-25 20:55:00 97.9 F [facility] Heart Rate 2015-02-25 20:55:00 [facility] Respitory Rate 2015-02-25 20:55:00 [facility] Temperature Oral (F) 2015-02-25 17:18:00 98 F [facility] Heart Rate 2015-02-25 17:18:00 [facility] Respitory Rate 2015-02-25 17:18:00 [facility] [place] Systolic (mm Hg) 2015-02-25 17:18:00 Eleazar rial [...] Maciej BMI Calculated 2015-02-24 16:11:00 [facility] [place] Weight 2015-02-24 16:11:00 [facility] Heart Rate 2015-02-18 20:17:00 [facility] Temperature Oral (F) 2015-02-18 20:17:00 97.3 F [facility] Systolic (mm Hg) 2015-02-18 20:17:00 Eleazar rial [place] Diastolic (mm Hg) 2015-02-18 20:17:00 [facility] Respitory Rate 2015-02-18 20:17:00 [facility] [place] Heart Rate 2015-02-18 16:13:00 [facility] Respitory Rate 2015-02-18 16:13:00 [facility] Systolic (mm Hg) 2015-02-18 16:13:00 Eleazar rial [place] Diastolic (mm Hg) 2015-02-18 16:13:00 [facility] Temperature Oral (F) 2015-02-18 16:13:00 97.5 F [facility] Temperature Oral (F) 2015-02-18 12:19:00 97.9 F [facility] Systolic (mm Hg) 2015-02-18 12:19:00 Eleazar rial Maciej Diastolic (mm Hg) 2015-02-18 12:19:00 [facility] Respitory Rate 2015-02-18 12:19:00 [facility] Heart Rate 2015-02-18 12:19:00 [facility] Weight 2015-02-17 02:30:00 [facility] Height 2015-02-17 02:30:00 152.4 cm [facility] BMI Calculated 2015-02-17 02:30:00 [facility] Weight 2015-02-16 20:42:00 [facility] BMI Calculated 2015-02-16 20:42:00 [facility] Height 2015-02-16 20:42:00 152.4 cm [facility] Respitory Rate 2013-12-25 19:27:00 [facility] Heart Rate 2013-12-25 19:27:00 [facility] Diastolic (mm Hg) 2013-12-25 19:27:00 [facility] Systolic (mm Hg) 2013-12-25 19:27:00 [facility] Temperature Oral (F) 2013-12-25 19:27:00 98.3 F [facility] BMI Calculated 2013-12-25 16:48:00 [facility] Weight 2013-12-25 16:48:00 [facility] Height 2013-12-25 16:48:00 152.4 cm [facility] Respitory Rate 2013-12-25 16:48:00 [facility] Heart Rate 2013-12-25 16:48:00 [facility] Diastolic (mm Hg) 2013-12-25 16:48:00 [facility] Systolic (mm Hg) 2013-12-25 16:48:00 [facility] Temperature Oral (F) 2013-12-25 16:48:00 98.8 F [facility] Heart Rate 2013-12-23 00:27:00 [facility] Systolic (mm Hg) 2013-12-23 00:27:00 [facility] Respitory Rate 2013-12-23 00:27:00 [facility] Temperature Oral (F) 2013-12-23 00:27:00 98.3 F [facility] Diastolic (mm Hg) 2013-12-23 00:27:00 [facility] Diastolic (mm Hg) 2013-12-22 23:06:00 [facility] Temperature Oral (F) 2013-12-22 23:06:00 98.4 F [facility] Systolic (mm Hg) 2013-12-22 23:06:00 [facility] Respitory Rate 2013-12-22 23:06:00 [facility] Heart Rate 2013-12-22 23:06:00 [facility] Weight 2013-12-22 20:46:00 [facility] [facility] Temperature Oral (F) 2013-12-22 20:46:00 98.7 F [facility] Systolic (mm Hg) 2013-12-22 20:46:00 [facility] Diastolic (mm Hg) 2013-12-22 20:46:00 [facility] Respitory Rate 2013-12-22 20:46:00 [facility] Heart Rate 2013-12-22 20:46:00 [facility] Diastolic (mm Hg) 2013-12-17 20:30:00 [facility] Respitory Rate 2013-12-17 20:30:00 [facility] al [facility] Systolic (mm Hg) 2013-12-17 20:30:00 Eleazar rial [facility] Systolic (mm Hg) 2013-12-17 19:06:00 Eleazar rial [facility] Diastolic (mm Hg) 2013-12-17 19:06:00 [facility] Respitory Rate 2013-12-17 19:06:00 [facility]ori al [facility] Systolic (mm Hg) 2013-12-17 18:54:00 Eleazar [facility] Diastolic (mm Hg) 2013-12-17 18:54:00 [facility] Temperature Oral (F) 2013-12-17 17:09:00 98.1 F [facility] Respitory Rate 2013-12-17 16:50:00 [facility] Temperature Oral (F) 2013-12-17 09:00:00 97.1 F [facility] Height 2013-12-17 02:58:00 152.4 cm [facility] Weight 2013-12-17 02:58:00 [facility] BMI Calculated 2013-12-17 02:58:00 [facility] Temperature Oral (F) 2013-12-17 02:55:00 98.1 F [facility] Height 2013-12-16 17:19:00 152.4 cm [facility] BMI Calculated 2013-12-16 17:19:00 [facility] Weight 2013-12-16 17:19:00 [facility] Heart Rate 2013-12-16 17:19:00 [facility] Temperature Oral (F) 2013-11-08 21:00:00 98 F [facility] Diastolic (mm Hg) 2013-11-08 21:00:00 [facility] Respitory Rate 2013-11-08 21:00:00 [facility] Systolic (mm Hg) 2013-11-08 21:00:00 Eleazar [facility] Temperature Oral (F) 2013-11-08 19:13:00 97.6 F [facility] Diastolic (mm Hg) 2013-11-08 19:13:00 [facility] Systolic (mm Hg) 2013-11-08 19:13:00 Eleazar [facility] Respitory Rate 2013-11-08 19:13:00 [facility] Systolic (mm Hg) 2013-11-08 16:18:00 Eleazar [facility] Respitory Rate 2013-11-08 16:18:00 [facility] Diastolic (mm Hg) 2013-11-08 16:18:00 [facility] Temperature Oral (F) 2013-11-08 11:34:00 99.0 F [facility] Heart Rate 2013-11-08 11:34:00 [facility] Heart Rate 2013-11-08 08:04:00 [facility] BMI Calculated 2013-11-08 04:51:00 [facility] Height 2013-11-08 04:51:00 152.4 cm [facility] Weight 2013-11-08 04:51:00 [facility] Heart Rate 2013-11-08 04:51:00 [facility] Procedures Procedure Date / Time Performing Clinician Source Performed Cardiac catheterization [facility] procedure Stent placement<sup>1</sup> Eleazar [facility] Plan of Care Planned Activity Planned Date Details Comments Source Future Scheduled Test 2020-05-29 IMM Influenza Seasonal [facility] 00:00:00 May to October (>/= 19 yrs) [code = IMM Influenza Seasonal May to October (>/= 19 yrs)] Future Scheduled Test 2015 IMM Pneumococcal Age 65 [facility] 00:00:00 and Up [code = IMM Pneumococcal Age 65 and Up] Future Scheduled Test 2000 Screening for malignant [facility] 00:00:00 neoplasm of colon (procedure) [code = 587956338] Future Scheduled Test 1990 Breast Cancer Scrn [facility] 00:00:00 (Yearly) [code = Breast Cancer Scrn (Yearly)] Future Scheduled Test 1966 COVID-19 Vaccine (1 of [facility] 00:00:00 2) [code = COVID-19 Vaccine (1 of 2)] Encounters Start End Encounter Admission Attending Care Care Encounter Source Date/Time Date/Time Type Type Clinicians Facility Department ID 2020-01-21 2020-01-21 Outpatient E [facility] [id number] 05:31:00 05:31:00 2019-10-15 2019-10-15 Emergency E [facility] [id number] [facility] 13:12:00 13:12:00 2019-05-20 2019-05-20 Emergency E [facility] [id number] [facility] 15:19:00 15:19:00 2019-02-25 2019-02-25 Emergency E [facility] [id number] [facility] 10:56:00 10:56:00 2018-08-21 2018-08-21 Emergency [facility] [id number] [place] 18:32:58 18:32:58 Health 2018-08-21 2018-08-21 Emergency [facility] [id number] [place] 17:47:59 17:47:59 Health 2018-08-21 2018-08-21 Emergency [facility] [id number] [place] 16:16:06 16:16:06 Health 2018-08-16 2018-08-16 Emergency [facility] [id number] [place] 22:04:00 22:04:00 Health 2018-08-16 2018-08-16 Emergency [facility] [id number] [place] 21:21:42 21:21:42 Health 2018-05-18 2018-05-18 Emergency [facility] [id number] [place] 14:51:52 14:51:52 Health 2018-03-08 2018-03-08 Emergency [facility] [id number] [place] 15:12:17 15:12:17 Health 2018-01-16 2018-01-16 Emergency [facility] [id number] [place] 17:53:03 17:53:[address] [facility] 2018-01-16 2018-01-16 Emergency [facility] [id number] [place] 00:00:00 00:00:[address] [facility] 2018-01-16 2018-01-16 Outpatient [facility] [id number] [place] 00:00:00 00:00:[address] [facility] 2017-11-11 2017-11-11 Emergency E [facility] MED [id number] [facility] 16:37:00 16:37:00 2017-01-19 2017-01-19 Outpatient Patel, [facility]SE MHSE [id number] 12:18:00 18:37:00 Mac Bond 2017-01-16 2017-01-16 Outpatient Nickirenée, [facility] [id number] 18:22:00 21:34:00 Jl 33 Lida 2016-11-28 2016-11-28 Outpatient Maximuscarloz, [facility] [id number] 19:17:00 23:13:00 Jason 32 Melody 2016-11-06 2016-11-06 Outpatient Nava, [facility] [id number] 17:34:00 21:03:00 Zaki 31 [place] 2016-10-10 2016-10-11 Outpatient Ahmed, [facility] [id number] 11:45:00 13:54:00 Alexandreaaviva Read 30 2016-09-14 2016-09-15 Outpatient Dorians, [facility] [id number] 21:19:00 00:56:00 Nando Lozada 29 2016-04-13 2016-04-14 [facility] [id number] 21:11:00 01:37:00 Jose 28 Thundiyil 2016-03-11 2016-03-12 Outpatient Ogunbiyi, [facility] [id number] 14:41:00 15:25:00 Andrea 27 Arinola 2016-03-05 2016-03-05 Outpatient Fadowole, [facility] [id number] 16:54:00 21:21:00 Rachele 26 [place] 2016-02-29 2016-02-29 Outpatient Bayron, [facility] [id number] 17:25:00 20:29:00 Good 25 2015-09-03 2015-09-05 Outpatient Mateus Dixon [facility] [id number] 21:30:00 10:26:00 B 24 2015-07-15 2015-07-16 Outpatient Anjel, [facility] [id number] 12:00:00 15:30:00 Janet 23 2015-07-04 2015-07-05 Outpatient Dick, [facility] [id number] 22:07:00 01:09:00 Habacuc 22 Breen 2015-07-04 2015-07-04 Outpatient Hemal, [facility] [id number] 11:57:00 14:54:00 Maribel Berkowitz 21 2015-06-03 2015-06-04 Outpatient Ware, [facility] [id number] 23:00:00 02:09:00 Luzmaria 20 Aliya 2015-05-18 2015-05-18 Outpatient Jennifer, [facility] [id number] 11:55:00 18:04:00 Indira S 19 2015-05-09 2015-05-09 Outpatient Jennifer, [facility] [id number] 12:15:00 15:10:00 Indira S 18 2015-05-02 2015-05-02 Outpatient Jennifer, [facility] [id number] 13:18:00 19:05:00 Indira S 17 2015-04-11 2015-04-11 Outpatient Yovani, [facility] [id number] 11:25:00 14:47:00 Gilmar Giordano 16 2015-03-30 2015-03-30 Outpatient Charito, [facility] [id number] 14:39:00 17:11:00 Isatu Jose Ayala 2015-03-21 2015-03-24 Outpatient Richmond, [facility] [id number] 13:24:00 17:30:00 Catarino Valladares 2015-03-11 2015-03-11 Outpatient Dick, [facility] [id number] 14:43:00 17:41:00 Habacuc 13 Jamshid 2015-03-05 2015-03-05 Outpatient Tata Rushing [facility] [id number] 00:43:00 05:21:00 Jasbir 12 2015-02-24 2015-02-25 Outpatient Zack, [facility] [id number] 10:34:00 20:14:00 Tucker 11 2015-02-16 2015-02-18 Outpatient Thu, [facility] [id number] 15:36:00 16:00:00 Kaldiana 10 Marilynn 2013-12-25 2013-12-25 Outpatient Dorothea, [facility] [id number] 11:37:00 14:52:00 Rishabh Valdivia 2013-12-22 2013-12-22 Outpatient Nba, [facility] [id number] 15:43:00 19:29:00 Jann 08 Jl 2013-12-16 2013-12-17 Outpatient Beth, [facility] [id number] 12:18:00 17:45:00 Alvarez 07 2013-11-07 2013-11-08 Outpatient Jazmin, [facility] [id number] 23:50:00 18:00:00 Dustin Results Test Description [...] Negative (01/19/17 Me morial 19:21:00 2:21 PM) [facility] URINE AND STOOL 2017-01-19 Negative (01/19/17 Me morial 19:21:00 2:21 PM) [facility] URINE AND STOOL 2017-01-19 Negative (01/19/17 Me morial 19:21:00 2:21 PM) [facility] URINE AND STOOL 2017-01-19 1 [facility] 19:21:00 [facility] URINE AND STOOL 2017-01-19 1 [facility] 19:21:00 [facility] URINE AND STOOL 2017-01-19 7.0 [facility] 19:21:00 [facility] URINE AND STOOL 2017-01-19 1.008 [facility] 19:21:00 [facility] URINE AND STOOL 2017-01-19 Clear (01/19/17 2:21 [facility] 19:21:00 PM) [facility] CARDIAC ENZYMES 2017-01-19 3.0 [facility] 18:07:00 [facility] CARDIAC ENZYMES 2017-01-19 <0.02 [facility] 18:07:00 [facility] CHEM PANEL 2017-01-19 231 [facility] 18:07:00 [facility] CHEM PANEL 2017-01-19 9 [facility] 18:07:00 [facility] CHEM PANEL 2017-01-19 8.4 [facility] 18:07:00 [facility] CHEM PANEL 2017-01-19 1.0 [facility] 18:07:00 [facility] CHEM PANEL 2017-01-19 3.6 [facility] 18:07:00 [facility] CHEM PANEL 2017-01-19 7 [facility] 18:07:00 [facility] CHEM PANEL 2017-01-19 32 [facility] 18:07:00 [facility] CHEM PANEL 2017-01-19 104 [facility] 18:07:00 [facility] CHEM PANEL 2017-01-19 3.4 [facility] 18:07:00 [facility] CHEM PANEL 2017-01-19 141 [facility] 18:07:00 [facility] CHEM PANEL 2017-01-19 0.79 [facility] 18:07:00 [facility] CHEM PANEL 2017-01-19 3.6 [facility] 18:07:00 [facility] CHEM PANEL 2017-01-19 9.1 [facility] 18:07:00 [facility] CHEM PANEL 2017-01-19 25 [facility] 18:07:00 [facility] CHEM PANEL 2017-01-19 7.2 [facility] 18:07:00 [facility] CHEM PANEL 2017-01-19 1.1 [facility] 18:07:00 [facility] CHEM PANEL 2017-01-19 111 [facility] 18:07:00 [facility] CHEM PANEL 2017-01-19 31 [facility] 18:07:00 [facility] CHEM PANEL 2017-01-19 90 [facility] 18:07:00 [facility] CHEM PANEL 2017-01-19 73 [facility] 18:07:00 [facility] CHEM PANEL 2017-01-19 75 [facility] 18:07:00 [facility] HEMATOLOGY 2017-01-19 18:07:00 Test Item Value Reference Range Interpretation Comme nts PTT (test code = PTT) 31.3 s 22.9-35.8 [facility] HctkcbzHULEUHNCXH7335-70-20 18:07:008.5[facility] 2017-01-19 18:07:0042.0[facility] XphdugyRBJFHAYZOC9514-74-23 18:07:004.92[facility] LgtghneHOJXIGFGZV1259-67-18 18:07:0014.4[facility] KywagjsGTWITLZCWZ8680-13-13 18:07:0014.2[facility] OgygxmlMEEUTCOJCC2666-36-98 18:07:56997Agsooksu Maciej GUAXDEHXCO3642-85-09 18:07:0034.2[facility] TdhzfrsYAWMIUQCHA5445-05-97 18:07:00 Test Item Value Reference Range Interpretation Comments MCH (test code = MCH) 29.2 pg 27.0-31.0 [facility] HuxudggCGBCPYQTNK2155-54-15 18:07:0085.5[facility]annHEMATOLOGY 2017-01-19 18:07:007.7[facility] EfsqeshOTOGLJPUFJ0923-05-07 18:07:00 Test Item Value Reference Range Interpretation Comments PT (test code = PT) 13.7 s 12.0-14.7 [facility] SvoahkjTXRJVTFZEM9935-81-08 18:07:001.03[facility]annHEMATOLOGY 2017-01-19 18:07:000.3[facility] DzuefzmOYITYOPEMB6921-78-95 18:07:0068.3[facility] OazgxwhQURWRHKTJD7081-20-15 18:07:000.6[facility] ZnfinviTXFDHFQAJU5729-66-91 18:07:005.3[facility] AbtcwnfJDXSHQAMUO0051-52-76 18:07:004.5[facility] ESVACHJGJR8272-41-72 18:07:000.6[facility] PhhnnspDVGMRZDUDY2071-67-34 18:07:001.4 [facility] XvjuchlTQRTYVABLH0105-19-55 18:07:007.8[facility]annHEMATOLOGY 2017-01-19 18:07:0018.8[facility]annDRUG OJDYXQ7301-02-65 00:23:00Positive *ABN*(01/16/17 7:23 PM)[facility] OKFSBZ7286-46-51 00:23:00Negative *NA*(01/16/17 7:23 PM)[facility] IDHBCE5629-23-14 00:23:00Negative *NA*(01/16/17 7:23 PM)[facility] DOTKLD4724-55-60 00:23:00Negative *NA*(01/16/17 7:23 PM)[facility] CXBCQR8272-62-97 00:23:00See Note (01/16/17 7:23 PM)[facility] MGWCRR7042-86-81 00:23:00Negative *NA*(01/16/17 7:23 PM)[facility] SIXPJB6114-46-93 00:23:00Negative *NA*(01/16/17 7:23 PM)[facility] LZAHIR6348-82-34 00:23:00Negative *NA*(01/16/17 7:23 PM)[facility] TQRIU7529-03-37 00:23:00Negative *NA*(01/16/17 7:23 PM)[facility] OHRPD2005-04-15 00:23:00Negative *NA*(01/16/17 7:23 PM)[facility] BGQAH6100-72-82 00:23:00Negative (01/16/17 7:23 PM)[facility] GMHPF8515-24-34 00:23:00Negative (01/16/17 7:23 PM)[facility] UMGYZ7531-22-25 00:23:00Negative (01/16/17 7:23 PM)[facility] KIMSW2838-73-78 00:23:001.0[facility] EYAZY2444-38-29 00:23:00Negative (01/16/17 7:23 PM)[facility] BWYHI3072-20-00 00:23:00Slight Cloudy (01/16/17 7:23 PM)[facility] AAFSJ7925-35-14 00:23:00 Test Item Value Reference Range Interpretation Comments UA Spec Grav (test code = UA Spec 1.007 1 Grav) [facility] IWGAY7072-54-07 00:23:00 Test Item Value Reference Range Interpretation Comments UA pH (test code = UA pH) 6.0 1 5.0-8.0 [facility] BQOIX1807-20-16 00:23:00Negative (01/16/17 7:23 PM) [facility] LXOJE2096-57-61 00:23:00Yellow *NA*(01/16/17 7:23 PM) [facility]annCARDIAC TPEJVJP1115-62-92 23:57:00<0.02[facility] CARDIAC XLAUQWO3170-81-13 23:57:002.0[facility]annCARDIAC OIBLGZZ2900-92-58 23:57:39234Nijyhmxb HermannCARDIAC CJPFPBM6094-05-15 23:57:001.0[facility] CHEM LSGEK2743-32-45 23:57:0073[facility] HermannCHEM GCSOD7264-82-39 23:57:0029 [facility]annCHEM EYTFV2526-12-94 23:57:66251Uyiihgkn HermannCHEM PANEL 2017-01-16 23:57:60055Zvsxyukz HermannCHEM UHCNP7944-83-24 23:57:0015[facility]annCHEM BWRJM5080-18-77 23:57:0011.0[facility]annCHEM YCOHO1067-10-32 23:57:0016[facility]annCHEM SLQXY9417-77-23 23:57:009.4[facility] HermannCHEM JIJZA7104-94-80 23:57:000.94[facility]annCHEM UBASW5792-15-55 23:57:81365 [facility]annCHEM GUOVU7667-94-99 23:57:004.0[facility] HermannCHEM PANEL 2017-01-16 23:57:003.6[facility]annCHEM ZCLPI5433-37-84 23:57:0024[facility] HermannCHEM VCCQE8180-78-36 23:57:000.6[facility] HermannCHEM HRPCC0792-87-99 23:57:12905Cnawpyoe HermannCHEM BMDPO1043-05-09 23:57:0029[facility] HermannCHEM BQGNP3096-27-47 23:57:000.9[facility] HermannCHEM NWEIP7876-42-65 23:57:003.9 [facility]annCHEM ORLZU3027-58-80 23:57:007.5[facility] HermannHEMATOLOGY 2017-01-16 23:57:0014.6[facility] PqcgasqIJSRSMSMLZ7964-18-37 23:57:0042.7[facility] KattccaTOHSJEAJUF7181-22-66 23:57:0034.2[facility] XuelakgAPDBCBFSZA1965-71-02 23:57:0085.3[facility] XwdlpeeGEZLZYWWQF9037-64-91 23:57:00 Test Item Value Reference Range Interpretation Comments MCH (test code = MCH) 29.2 pg 27.0-31.0 [facility] TiuhjdtUQKGRVQPIP6491-05-42 23:57:0014.3[facility] HermannHEMATOLOGY 2017-01-16 23:57:66472Hvqxoexr NveornpTERVSPHCQO7161-45-13 23:57:008.0[facility] DlqxmqrEUPZWDUDTX8639-60-67 23:57:006.6[facility] EjalcfmPLSSTLTJFT4276-36-09 23:57:005.00[facility] UitivvyKYEKRBLPCB2061-22-83 23:57:000.8[facility] OXZKOYTNGK9625-67-10 23:57:004.0[facility] QfisxqgPLDLWAWQNA4342-49-69 23:57:000.5 [facility] UbvcqsoNTISZXWCCA1357-77-96 23:57:000.1[facility] HermannHEMATOLOGY 2017-01-16 23:57:001.8[facility] ThnuihnDNPBNFCLMF8473-32-61 23:57:000.2[facility] FanwqszICCXYJVGVR1541-68-83 23:57:0060.6[facility] KnzaejwAHQWTTZTXR5982-88-84 23:57:008.3[facility] FrzcazkTEJUYZOJUG0401-97-17 23:57:003.5[facility] MRWLTTBLPO3623-72-18 23:57:0026.8[facility] AND KMNVG9008-19-18 02:18:00Negative *NA*(11/28/16 9:18 PM)[facility] QFNSP9037-69-58 02:18:00Negative (11/28/16 9:18 PM)[facility] SQAHM9043-36-24 02:18:001.0[facility] RXQVR3909-35-11 02:18:00Negative (11/28/16 9:18 PM)[facility] JFQGH0183-30-77 02:18:00Negative *NA*(11/28/16 9:18 PM)[facility] ENBEZ6222-89-72 02:18:00Moderate *ABN*(11/28/16 9:18 PM)[facility] FVWOT9773-37-53 02:18:00Yellow *NA*(11/28/16 9:18 PM)[facility] OHFLL5762-58-79 02:18:00 Test Item Value Reference Range Interpretation Comments UA pH (test code = UA pH) 6.0 1 5.0-8.0 [facility] BAYGB4518-78-20 02:18:00Negative (11/28/16 9:18 PM) [facility] NOBEL1444-21-26 02:18:00Negative (11/28/16 9:18 PM) [facility] TRXEO7418-65-12 02:18:00<=1.005 *NA*(11/28/16 9:18 PM)[facility] IGFCG6601-74-91 02:18:00Clear (11/28/16 9:18 PM) [facility]annCARDIAC YTCJIRL6558-84-96 01:37:00<0.02[facility] CARDIAC PESFRTD7290-27-84 01:37:001.3[facility]annCARDIAC MNIHHGE8574-16-57 01:37:0089[facility]annCARDIAC OKPHOUB9034-24-85 01:37:001.5[facility] CHEM BNHND4256-07-64 01:37:003.9[facility] HermannCHEM NACKB2767-69-80 01:37:0050 [facility]annCHEM KYUXQ6396-23-68 01:37:000.9[facility] HermannCHEM PANEL 2016-11-29 01:37:0024[facility] HermannCHEM GQIUK3291-91-41 01:37:003.7[facility] HermannCHEM DVCAD7748-60-44 01:37:0089[facility] HermannCHEM LTLCS6614-79-92 01:37:80812Awxfzihm HermannCHEM MYNBQ9240-55-50 01:37:0010[facility] HermannCHEM HJBIW8380-18-17 01:37:001.28[facility] HermannCHEM IGTKL9254-45-73 01:37:0030 [facility]annCHEM VCJLV4326-56-36 01:37:29776Lmhvapnw HermannCHEM PANEL 2016-11-29 01:37:009.5[facility] HermannCHEM UXRSP9783-81-06 01:37:009.5[facility] HermannCHEM PBNOD5213-32-19 01:37:008[facility] HermannCHEM RJDXR6844-48-83 01:37:000.7[facility] HermannCHEM NUBJA4453-26-29 01:37:65919Zxvacwhj HermannCHEM EFATN4271-19-37 01:37:003.5[facility] HermannCHEM UPFTV9935-74-45 01:37:007.6 [facility] HermannCHEM PKZGM0445-55-32 01:37:0014[facility] HermannHEMATOLOGY 2016-11-29 01:10:0033.4[facility] WxgggowXHDROSPFBZ7369-48-10 01:10:56431Nupvvtqk SholcsmCXGZHHIXYY1005-47-05 01:10:0014.7[facility] UladcyqAUPUYRFMXH6732-68-67 01:10:008.1[facility] DzwwnjaUURNDURARP5105-07-00 01:10:005.34[facility] GULHMXYFBK7677-70-84 01:10:0015.5[facility] FztnvunESRUURRZGD7801-77-35 01:10:00 87.0[facility] JovhhwqQKQETKWDLX0396-48-48 01:10:0046.4[facility] HermannHEMATOLOGY 2016-11-29 01:10:00 Test Item Value Reference Range Interpretation Comments MCH (test code = MCH) 29.1 pg 27.0-31.0 [facility] IzxookgBNGMWGQEPX5976-15-94 01:10:008.0[facility] HermannHEMATOLOGY 2016-11-29 01:10:000.1[facility] ZazuimiRJXSRKGBKU8901-24-01 01:10:002.0[facility] SepzutsNCOBZOERNW6017-82-62 01:10:005.1[facility] HjycyxyXOLQPUEKIL9507-98-47 01:10:000.2[facility] IuwcpwvIYKSYIQYDX8663-21-65 01:10:000.8[facility] MSSXMMKHSY0059-73-71 01:10:0063.2[facility] QfkrsmzAJPMUVSWWS0942-55-14 01:10:00 24.3[facility] DktrtkiUDNJCVMHLU1822-49-24 01:10:002.1[facility] HermannHEMATOLOGY 2016-11-29 01:10:009.6[facility] GzbuktzLSPTERXFOY0564-94-17 01:10:000.8[facility] HermannVIRAL - QHHDHUXT9813-72-73 01:10:00Negative (11/28/16 8:10 PM)[facility] HermannVIRAL - YZINGQSJ9696-76-62 01:10:00Negative (11/28/16 8:10 PM)[facility]annCARDIAC LJPIWNQ7060-99-20 01:15:001.3[facility]annCARDIAC ENZYMES 2016-11-07 01:15:00<0.02[facility]annCARDIAC IXKXASR0485-73-29 01:15:001.9 [facility]annCARDIAC WDRHNHN9572-82-02 01:15:79620Djkpmosr HermannCHEM PANEL 2016-11-07 01:15:0077[facility] HermannCHEM NYBEC7332-54-78 01:15:0017[facility] HermannCHEM YSLVJ9372-43-53 01:15:006.8[facility] HermannCHEM DWZSM4232-34-40 01:15:008.5[facility] HermannCHEM UIASV8817-47-75 01:15:000.8[facility] HermannCHEM WFMYE4561-18-31 01:15:63902Elkscifz HermannCHEM STDXD5370-00-33 01:15:0031 [facility]annCHEM QVKFN4663-42-10 01:15:003.1[facility] HermannCHEM PANEL 2016-11-07 01:15:000.90[facility] HermannCHEM TCGTD7086-36-25 01:15:01686Prnqvtqf HermannCHEM FBGBH9305-42-74 01:15:0012[facility] HermannCHEM YAOPU0543-00-46 01:15:0096[facility] HermannCHEM KIBMS6153-09-85 01:15:003.3[facility] HermannCHEM CRDZX9466-90-23 01:15:0076[facility] HermannCHEM DWBIT8115-90-82 01:15:0020 [facility]annCHEM TPUZI5097-65-20 01:15:003.5[facility] HermannCHEM PANEL 2016-11-07 01:15:000.9[facility] HermannCHEM UVCFR3797-34-73 01:15:0010.1[facility] HermannCHEM DXQFP3498-84-80 01:15:0013[facility] OtcjndvNHZSTMTRPE1535-39-53 01:15:002.8[facility] YfqexchWOOSCGONDH5378-83-49 01:15:000.2[facility] AIVAXXTDVK9187-92-27 01:15:000.1[facility] HgllwgyEINRLLIGDP6567-25-94 01:15:000.7 [facility] GlhcjexOHXQJQQZNN8075-05-55 01:15:000.8[facility]annHEMATOLOGY 2016-11-07 01:15:004.5[facility] EmflmteFXFQOHFYIW6765-53-88 01:15:002.2[facility] WnescqlNQLXSOKOCN0054-12-37 01:15:0058.5[facility] YraademVRDLOEYNAK7205-79-72 01:15:0028.8[facility] PwfbuyjMNBGXQYRIQ4187-19-49 01:15:009.1[facility] HKFFZJTUUM2661-21-38 01:15:51532Drginofn JfushgsMXWIVRATUE2221-48-00 01:15:00 14.3[facility] GgzhyodPOEOOGWPUJ8772-76-32 01:15:008.1[facility]annHEMATOLOGY 2016-11-07 01:15:007.7[facility] ZtvbranZISOXHKHYJ3445-06-64 01:15:0013.1[facility] KnvrijxYGDUDDPHZF6508-63-61 01:15:004.48[facility] EgxkploHHBFOWINTX7207-52-11 01:15:00 Test Item Value Reference Range Interpretation Comments MCH (test code = MCH) 29.3 pg 27.0-31.0 [facility] XwsgiydABERHOEAGV3226-56-56 01:15:0039.1[facility]annHEMATOLOGY 2016-11-07 01:15:0087.3[facility] EvieumbAERLFYXINU0839-67-31 01:15:0033.6[facility]annDRUG HXDWXA2214-03-33 11:24:00Negative *NA*(10/11/16 5:24 AM)[facility] TUHHVI8590-90-33 11:24:00Negative *NA*(10/11/16 5:24 AM)[facility] VSNFMX4947-12-83 11:24:00Negative *NA*(10/11/16 5:24 AM)[facility] BTHTNP7650-06-98 11:24:00Negative *NA*(10/11/16 5:24 AM)[facility] OMFTIL6933-73-97 11:24:00Positive *ABN*(10/11/16 5:24 AM)[facility] TKFYTR2710-80-20 11:24:00See Note (10/11/16 5:24 AM)[facility] ODSNYL7064-38-79 11:24:00Negative *NA*(10/11/16 5:24 AM)[facility] QHEELI9882-73-79 11:24:00Negative *NA*(10/11/16 5:24 AM)[facility]annCARDIAC XZCJEAY6776-11-89 09:58:00<0.02[facility] QqtzbmdLTWZZMWBUS8691-57-19 09:58:00 0.4[facility] SfhtbzdQQNJSJWLVJ3423-08-16 09:58:000.1[facility]annHEMATOLOGY 2016-10-11 09:58:006.3[facility] ScpysrlUBCVJICIEJ9802-87-29 09:58:001.0[facility] MboleqnKVTYJETKOX2498-91-17 09:58:002.7[facility] XketvdaWOQKQNHGXG0894-82-99 09:58:002.1[facility] FrdzptkJFMLNTBGCQ3335-75-27 09:58:000.6[facility] SXRMWQBCTI9000-32-42 09:58:0036.3[facility] JbnuplnRBWZMBEAYD7693-47-71 09:58:00 46.0[facility] ObsmfbcJFDWWFFNOZ3746-46-64 09:58:0010.4[facility]annHEMATOLOGY 2016-10-11 09:58:008.7[facility] NsgxelbZONIRUCRJO5670-27-87 09:58:86270Oqlloxhm HkkywiaVZVBJBLIVO4212-63-45 09:58:00 Test Item Value Reference Range Interpretation Comments MCH (test code = MCH) 29.3 pg 27.0-31.0 [facility] NcpjhroZDCXOBSCLP5402-98-82 09:58:0087.2[facility]annHEMATOLOGY 2016-10-11 09:58:0014.4[facility] JysftdiJJHNGFJDKP4033-65-26 09:58:0033.6[facility] BbbqgldTZFODHHONN1518-21-81 09:58:0013.1[facility] JylvpgrEZOWQCKNZG5336-37-47 09:58:004.45[facility] SsdnuftOIOJWRQDJA1074-18-45 09:58:0038.8[facility] TLEVMBJUSL9980-49-12 09:58:005.8[facility] XrcowdjPAGUMX9008-94-49 09:58:002.84 [facility] UsusgkqZVDOAK7007-14-65 09:58:0014[facility] QxmzoawTRDOXE3883-76-77 09:58:0087[facility] FuwykbsQLQOGP2391-20-11 09:58:0071[facility] HermannLIPIDS 2016-10-11 09:58:11679Pywugxsf XkulzshCQGQSS6428-11-87 09:58:0055[facility]annCARDIAC EIGEXJP0266-16-91 00:00:00<0.02[facility]annCARDIAC ENZYMES 2016-10-10 19:10:33<0.02[facility]annCHEM ZQDTX0407-78-83 19:10:3392 [facility]annCHEM UYFEB8909-13-63 19:10:338[facility]annCHEM PANEL 2016-10-10 19:10:330.78[facility]annCHEM YGFIY3026-00-93 19:10:79784Prnnmnvr HermannCHEM JNNTG6287-89-73 19:10:333.2[facility]annCHEM FYDTN1398-84-24 19:10:339.3[facility]annCHEM COUVF8239-88-70 19:10:3331[facility]annCHEM GCNDL5021-35-50 19:10:94240Nhtphphu HermannCHEM HUCCT8489-07-80 19:10:12818 [facility]annCHEM GFEZG8925-53-80 19:10:337.2[facility]annHEMATOLOGY 2016-10-10 19:10:3333.8[facility] TethdgyKVASNWQFCS4908-69-85 19:10:3314.2[facility] YlbluxtEZJMWPFDPD1936-63-14 19:10:33 Test Item Value Reference Range Interpretation Comments MCH (test code = MCH) 29.4 pg 27.0-31.0 [facility] ZxoucngWKUGTPMCUM5066-72-29 19:10:3387.0[facility]annHEMATOLOGY 2016-10-10 19:10:3313.5[facility] XapzvcrLKRZNICYEH3600-76-21 19:10:3339.8[facility] TgweqgmYOSALAPEDM4782-33-87 19:10:97684Atyagnum UdqzbimBBMQHWRXZK8256-12-29 19:10:338.7[facility] TmyetafYKTHYQJDWD7861-99-54 19:10:336.6[facility] ULGUAGQKTP4574-27-01 19:10:334.58[facility] IaubyfgHRWOAOMQAJ4490-47-84 19:10:33 1.8[facility] IzyfpuiKOUTPVHCTH1026-39-37 19:10:330.6[facility]annHEMATOLOGY 2016-10-10 19:10:330.3[facility] RjnunoqLCSEKOXNAI5287-38-81 19:10:330.6[facility] RifykisUGYUHLIIVG2626-15-58 19:10:333.9[facility] EzxrlnhCPUNCGZYKM4157-56-89 19:10:339.0[facility] PhenbzoJZKMRYSWFG7234-21-68 19:10:334.1[facility] WYVJFMAJRN4979-05-77 19:10:3359.5[facility] NdjxeaiOVTKJIFUJF8881-16-76 19:10:33 26.8[facility] HermannCARDIAC AGBBWSY8379-33-01 04:07:00<0.02[facility] BDWQUZTXGTWG2459-44-57 04:07:0013.5[facility] FxekmdmYCPPZWKJENSN8679-29-26 04:07:0079[facility] VvgmsrkMFNQJBVVXRXU5160-35-26 04:07:000.89[facility] OJNEXEHZLYCN6393-89-91 04:07:009[facility] TuqmqwsCRJJPBULYUKT9931-03-16 04:07:00 72[facility] CrxfvunAJOHBPYXAZVB2477-49-75 04:07:45015Xcdrdjkh HermannELECTROLYTES 2016-04-14 04:07:0025[facility] YgdecdgXDCHAVMBNMIB5941-85-34 04:07:008.9[facility] UcishpuRGQTJLZYEMXL1959-81-53 04:07:56212Gtckrdyo OdnubgiFCTNYYGDYCII4983-54-62 04:07:003.5[facility] OnhzqaqEOAFRUFVCT0192-18-18 04:07:93967Jjrlrgbz [facility] ILOZWTAGUK4998-09-98 04:07:008.5[facility] GjcxakwFAUMCIKWUH4024-63-87 04:07:00 33.5[facility] XbvgqveVKNSPMXYQD6850-25-51 04:07:00 Test Item Value Reference Range Interpretation Comments MCH (test code = MCH) 28.7 pg 27.0-31.0 [facility] UlclngaFHKCHBQNZY9071-15-64 04:07:0015.0[facility]annHEMATOLOGY 2016-04-14 04:07:0038.3[facility] VtyzlwkVWBNBXHOTG0867-86-46 04:07:0085.6[facility] GijlkyxLOZHUGYPMA4339-05-59 04:07:0012.9[facility] VkkkcbfLDNFCTHJWY7170-52-27 04:07:004.48[facility] MfjsxroFPDXCRTFJP5857-02-33 04:07:005.6[facility] WHWKTJOKPQ3544-04-32 04:07:000.1[facility] QrckfgdCGDSUUCYEJ3888-01-31 04:07:002.2 [facility] EvyjuoiZCYCLWODDS5639-01-42 04:07:000.3[facility]annHEMATOLOGY 2016-04-14 04:07:000.5[facility] QsbywoyBYCZWGTQXP8414-53-80 04:07:006.1[facility] DkaaishZSOCJJYQFN1732-85-89 04:07:001.1[facility] HeewrniKUIANUNLTO4373-73-41 04:07:002.5[facility] PdyrmztKDZMBZZFIM8415-76-75 04:07:0038.8[facility] ELMIEFUOYA3772-05-76 04:07:009.2[facility] XakubyfNBQGQNAJGC3539-99-39 04:07:00 44.8[facility] VqxeoxlYMACUMTHBH2030-12-18 04:07:008[facility] HermannTOXICOLOGY 2016-04-14 04:07:000.008[facility]annCARDIAC INAYCGS3749-29-01 11:47:00 <0.02[facility] XffugftZFWRAY0733-27-64 11:47:003.39[facility] HermannLIPIDS 2016-03-12 11:47:0018[facility] DecsqusNYOGNG2644-83-82 11:47:0073[facility] JPGNJT2080-56-95 11:47:0090[facility] WttjzdpELJJUZ8291-44-46 11:47:31491Onaestie VegixnxOKSNQG1386-18-87 11:47:0038[facility]annSPECIAL KALBQQUYJ9997-16-89 11:47:005.9[facility]annCARDIAC TCZOECW8127-10-65 02:33:0081[facility] CARDIAC WBZODYW0781-58-05 02:33:000.02[facility]annCARDIAC TEMYBAD5394-08-24 02:33:001.6[facility]annCARDIAC DMZYPCD2789-22-27 02:33:001.3[facility] BUHHQSDRDR7337-94-96 21:03:00 Test Item Value Reference Range Interpretation Comments PROTIME (test code = PROTIME) 14.0 s 12.0-14.7 [facility] BxwqdcwCMMHXHHXQG1861-00-83 21:03:001.05[facility]annHEMATOLOGY 2016-03-11 21:03:00 Test Item Value Reference Range Interpretation Comments aPTT (test code = aPTT) 38.7 s 22.9-35.8 [facility] IfrntrxLHPGYXJBGH2839-63-56 21:03:000.49[facility]annCARDIAC ENZYMES 2016-03-11 20:14:001.6[facility]annCARDIAC KTPXEDV8492-45-58 20:14:001.3 [facility]annC[facility]AC YVWRXQV2969-20-27 20:14:00<0.02[facility] CARDIAC ONBVLRX6609-61-41 20:14:0083[facility]annCARDIAC ZJEUISP6008-37-03 20:14:0050[facility] HermannCHEM XOAOP8918-39-20 20:14:47079Pxxzwhxm HermannCHEM FEQHP5804-11-06 20:14:83765Qmyitnls HermannCHEM OASPP8827-75-72 20:14:002.8 [facility]annCHEM YBTXZ0532-58-94 20:14:001.2[facility] HermannCHEM PANEL 2016-03-11 20:14:0015[facility]annCHEM XNXLO3467-09-50 20:14:0010.4[facility] HermannCHEM TQUHG8565-01-39 20:14:0014[facility]annCHEM XBNXN8890-95-66 20:14:006.1[facility]annCHEM DXKAV0542-43-52 20:14:000.5[facility]annCHEM MDLZB0306-62-95 20:14:007.7[facility]annCHEM CDJJE1162-43-30 20:14:0026 [facility]annCHEM OLQYR7756-91-20 20:14:60412Lbnxqamj HermannCHEM PANEL 2016-03-11 20:14:003.4[facility] HermannCHEM DMYQD4012-94-84 20:14:68299Zquczbqu HermannCHEM AQOJR2054-53-37 20:14:000.61[facility]annCHEM CCJDU2992-87-59 20:14:009[facility]annCHEM PXYSD1913-10-14 20:14:0076[facility]annCHEM ZHBIX7929-54-26 20:14:0088[facility]annCHEM LDTEI1732-88-87 20:14:003.3 [facility]annCHEM YNCGM2013-14-60 20:14:0015[facility]annHEMATOLOGY 2016-03-11 20:14:001.8[facility] FcejfjuNSSLGFPAMH4833-82-16 20:14:000.5[facility] MwxydusHUPEWBKSQS8794-29-32 20:14:001.0[facility] EwjpmuyEBYYFZJMCP8931-47-97 20:14:004.1[facility] CohctfjCNHTRIVHDB1092-55-61 20:14:000.2[facility] XLEYWJALDE7523-25-49 20:14:000.1[facility] KxrplmhMVLUFRVNXQ1648-22-17 20:14:00 61.4[facility] GfzcypzYKAHMGVCRY3024-39-45 20:14:003.5[facility]annHEMATOLOGY 2016-03-11 20:14:0026.6[facility] GvramrrNIBKYQEHNG4051-39-66 20:14:007.5[facility] FmqqmazPAZCOAWPOT9282-48-92 20:14:006.7[facility] VvnkvtpUEGLKBSEYA2719-51-82 20:14:0012.2[facility] BnvohjgPSRISRWRFX8769-05-49 20:14:004.26[facility] WMSBRROHNE9809-04-19 20:14:00 Test Item Value Reference Range Interpretation Comments MCH (test code = MCH) 28.7 pg 27.0-31.0 [facility] WuqjwinCFMFTXIDLQ7646-12-29 20:14:0086.0[facility]annHEMATOLOGY 2016-03-11 20:14:0014.9[facility] LwvoigfXGSYQUDULO7642-15-34 20:14:0033.3[facility] QpulaqiYNGBXNDEEC4272-46-48 20:14:0036.6[facility] JwvmbnjLPYQDOSTYU5733-24-45 20:14:008.7[facility] ObvdrjsWNYKTVPSLD3040-17-72 20:14:59408Fehoidkb HermannURINE AND OEWFY0115-86-17 20:14:00Negative (03/11/16 3:14 PM)[facility] VLVYN2979-10-42 20:14:00Negative (03/11/16 3:14 PM)[facility] KSWTM8962-08-98 20:14:00Negative (03/11/16 3:14 PM)[facility] XVEGM4622-88-05 20:14:000.2[facility]UR[facility] ZPZWA4075-47-70 20:14:00 Clear (03/11/16 3:14 PM)[facility] LOIYW2703-81-60 20:14:00 Negative (03/11/16 3:14 PM)[facility] HOHLE1979-20-85 20:14:00 <=1.005 *NA*(03/11/16 3:14 PM)[facility] JBJPG6623-03-37 20:14:00 Test Item Value Reference Range Interpretation Comments UA pH (test code = UA pH) 6.5 1 5.0-8.0 [facility] RWODF4630-61-63 20:14:00Negative *NA*(03/11/16 3:14 PM) [facility] SMHFP5410-85-21 20:14:00Negative *NA*(03/11/16 3:14 PM) [facility] LADUG4713-90-34 20:14:00Negative (03/11/16 3:14 PM) [facility] HRLIB6056-47-96 20:14:00Yellow *NA*(03/11/16 3:14 PM) [facility] CSUFR8950-45-11 00:22:00Yellow *NA*(02/29/16 7:22 PM) [facility] QPLRV8744-15-38 00:22:00 Test Item Value Reference Range Interpretation Comments UA pH (test code = UA pH) 6.0 1 5.0-8.0 [facility] CTJJA7989-10-57 00:22:00Clear (02/29/16 7:22 PM)[facility] NKSRK9408-81-71 00:22:00 Test Item Value Reference Range Interpretation Comments UA Spec Grav (test code = UA Spec 1.015 1 Grav) [facility] ABEGT6055-56-28 00:22:00Trace *ABN*(02/29/16 7:22 PM) [facility] GHJDT3927-31-93 00:22:00None Seen (02/29/16 7:22 PM) [facility] GDAAV5136-64-43 00:22:00Negative (02/29/16 7:22 PM) [facility] INMWW2862-30-05 00:22:001.0[facility] QCMKQ2408-63-82 00:22:00Negative (7/3/16 7:22 PM)[facility] STOOL 2016-03-01 00:22:00Negative (02/29/16 7:22 PM)[facility] STOOL 2016-03-01 00:22:00Negative *NA*(02/29/16 7:22 PM)[facility] STOOL 2016-03-01 00:22:00Negative *NA*(02/29/16 7:22 PM)[facility] STOOL 2016-03-01 00:22:00Negative (02/29/16 7:22 PM)[facility]annCARDIAC ENZYMES 2016-02-29 23:14:00<0.02[facility]annCARDIAC MZOHEOK0052-36-40 23:14:001.1 [facility]annCARDIAC MBNXZBC5698-61-54 23:14:69763Bxxywpgb HermannCARDIAC OBISUVI6593-61-46 23:14:007[facility]annCARDIAC CTANXGG0596-02-76 23:14:000.8 [facility]annCHEM AQKAS6555-83-38 23:14:0080[facility]annCHEM PANEL 2016-02-29 23:14:0013[facility] HermannCHEM VTLOE8709-63-18 23:14:001.0[facility]annCHEM NKLJQ6492-46-43 23:14:003.6[facility]annCHEM TPBCV0857-44-68 23:14:009[facility]annCHEM FDSXP0904-59-10 23:14:007.1[facility]annCHEM NLNZX3628-40-02 23:14:0010.0[facility]annCHEM HIACV1490-87-35 23:14:42261 [facility]annCHEM XZYEU1363-29-31 23:14:003.0[facility]annCHEM PANEL 2016-02-29 23:14:000.88[facility] HermannCHEM DCRTP1387-03-97 23:14:0030[facility]annCHEM DGJEH0051-91-93 23:14:000.6[facility] HermannCHEM UGHQB9290-13-76 23:14:008.7[facility]annCHEM MYQQN8258-03-80 23:14:08609Yksmpswk HermannCHEM KOCDM0108-40-94 23:14:0015[facility]annCHEM PXQZT1180-05-44 23:14:0088 [facility]annCHEM HKMEB0959-02-47 23:14:003.5[facility] HermannCHEM PANEL 2016-02-29 23:14:008[facility] HermannCHEM EDWZV5358-27-75 23:14:0089[facility] HdhqjmbQGGWHWYLLJ3197-53-29 23:14:00 Test Item Value Reference Range Interpretation Comments PROTIME (test code = PROTIME) 13.2 s 12.0-14.7 [facility] VzlupayLKJTEWVSCZ9703-10-79 23:14:000.97[facility]annHEMATOLOGY 2016-02-29 23:14:0015.3[facility] GgtbhaeBPXKTKVTTU8831-63-88 23:14:0032.9[facility] ArxrxrmDRDQVFFXIR3882-20-28 23:14:0043.8[facility] YffzbosSCNZADHWNA5295-81-20 23:14:00 Test Item Value Reference Range Interpretation Comments MCH (test code = MCH) 28.1 pg 27.0-31.0 [facility] GecvihsQTPGBPEXTT7460-64-66 23:14:0085.5[facility]annHEMATOLOGY 2016-02-29 23:14:005.3[facility] TulyyirZQMKDNHXFD5579-59-49 23:14:0014.4[facility] MlswlkjXOAQIICDKL9225-55-33 23:14:005.12[facility] DailwmyQSFIDNPFXL3649-41-69 23:14:02931Iphphqqm AxbtgkcJLCMMVIDLQ1185-96-90 23:14:008.1[facility] GLQIMTGPZX2105-28-23 23:14:0057.2[facility] CwjkbuvWEPIXYTLTE4513-98-96 23:14:00 11.7[facility] NvjjaaeBOEMGMWDUH0548-40-01 23:14:0024.1[facility]annHEMATOLOGY 2016-02-29 23:14:000.1[facility] TdaxgmpTRBDBUJTXL2882-20-65 23:14:000.6[facility] KsnucqdXUMKJUWKBT3221-57-94 23:14:001.3[facility] IagsisbRYSLAYPEMJ5266-68-23 23:14:000.3[facility] MucbqjvOQGHQMUYIG7151-10-97 23:14:003.0[facility] ZFTEZGHAXX4011-40-45 23:14:005.9[facility] TcsnsxoRMVMMLRRKD6091-22-46 23:14:001.1 [facility]annCARDIAC LHNKLAJ5181-69-50 17:04:000.7[facility]annCARDIAC WKXIBRY8830-14-96 17:04:000.7[facility]annCARDIAC HODBFEF9683-31-10 17:04:00 <0.02[facility]annCARDIAC NVVEIJQ3622-07-64 17:04:0097[facility] WSELOTXUCKVY9078-32-01 17:04:0018.3[facility] VqwgckdKYXUNRATNGZW3898-02-22 17:04:0078[facility] KvsovfcTKPNNKQMAZEF7757-12-91 17:04:80628Dybhlich Maciej SSQFBIYZYXYY7334-46-23 17:04:0010[facility] ItqsqkeTSWIRUJNLLWU8834-78-75 17:04:00 0.90[facility] AhcveuwOTJUEQRDYWAA9437-35-00 17:04:0020[facility] DBAPTTTMIASH7823-83-50 17:04:009.4[facility] CmjztmrGOFGLWIWAGYB1393-15-55 17:04:004.3[facility] UriawnoKFULCNENIWOW7228-89-97 17:04:42973Markvxrw Maciej SKELHRMESJXG0557-38-89 17:04:12532Qomuttcm XzgojfkHRHVTFTTNF5616-38-08 17:04:00 9.6[facility] SigbpzwVJJEEPNNOI3814-88-17 17:04:0041.4[facility]annHEMATOLOGY 2015-09-04 17:04:0013.1[facility] TcfvmbmUETRZPXVAX9954-76-03 17:04:004.74[facility] UzycqgpATZBGVAPXM1800-17-16 17:04:0087.3[facility] QxlujddTJNVCUQDLH2928-05-10 17:04:0031.5[facility] XhlzucoJANUNTTRUO1907-45-85 17:04:00 Test Item Value Reference Range Interpretation Comments MCH (test code = MCH) 27.5 pg 27.0-31.0 [facility] YjxlkmlNAWIWACZEY5930-29-32 17:04:008.7[facility]annHEMATOLOGY 2015-09-04 17:04:78673Vpbrygxw MhtyerjBZHNEWZOGH9477-16-94 17:04:0014.4[facility] HccaugiGKJXLKWIPD4208-94-41 17:04:000.1[facility] UikrscpAFKWHWVHHN3626-84-87 17:04:000.5[facility] ZdsbkmzKJNOEAEEVG0720-82-49 17:04:00Normal (09/04/15 11:04 AM) [facility] AxdrnhtKUCNWFGTXK7603-45-61 17:04:00Normal (09/04/15 11:04 AM)[facility] MfkjfvnCZLITYGTEK7249-07-88 17:04:0093.3[facility] WdsqyuqBSRGXWDTVT2856-64-06 17:04:000.2[facility] IcxjhltESVEVIWARD4280-20-19 17:04:005.4[facility] PUPNSMHTJL6669-44-23 17:04:001.1[facility] JcockprRFQEBGNKNX9780-90-04 17:04:009.0 [facility] ClmtvnpKAVLVO9727-74-99 17:04:0014[facility] VhmefkbXFNYAC0621-92-58 17:04:76795Dqwnymmc FrovtwbDLIJOM5120-22-74 17:04:0054[facility] HermannLIPIDS 2015-09-04 17:04:0071[facility] NbgrfgyFGRHYM0076-40-32 17:04:41799Afnvxves GpqmmdqSOUUOY6235-84-02 17:04:003.67[facility]annCARDIAC NWGCQZD1768-38-40 10:50:000.6[facility]annCARDIAC NXDWGRS5182-65-16 10:50:000.6[facility] CARDIAC HTJSKDA1462-08-36 10:50:00<0.02[facility]annCARDIAC ENZYMES 2015-09-04 10:50:70703Mmbtcrnr HermannCARDIAC ZKQYIPC4334-47-40 04:33:85547 [facility]annCARDIAC CGGLPSR4392-79-64 04:33:00<0.02[facility] CARDIAC FQMRIYT7816-30-60 04:33:000.8[facility]annCARDIAC NJCAMSH2610-38-85 04:33:000.7[facility] HermannCHEM WXUYJ4922-54-48 04:33:0087[facility]annCHEM VJXZX7287-72-81 04:33:008[facility]annCHEM IQCRE4914-22-15 04:33:000.82 [facility]annCHEM LIQDC8619-87-76 04:33:08576Susysyia HermannCHEM PANEL 2015-09-04 04:33:30401Aafnqaqg HermannCHEM IJPEU9397-92-93 04:33:003.9[facility] HermannCHEM RWNKE8365-19-43 04:33:38548Ghpktlaf HermannCHEM SZZZV5283-00-07 04:33:0013.9[facility] HermannCHEM VCLMS7472-86-37 04:33:009.2[facility] HermannCHEM NYVPL2403-64-53 04:33:0025[facility] EdkhbkfNMUSCXKXTR0240-42-60 04:33:007.4 [facility] TlhstvgPUWSQMTHGF8038-58-05 04:33:0012.4[facility]annHEMATOLOGY 2015-09-04 04:33:004.57[facility] AtuqpfmWYLIDAYUGK4350-95-40 04:33:0039.4[facility] MoshmprVKGWZOMUER1476-87-66 04:33:0086.1[facility] HfdhrieBKHKESUBEB2503-34-14 04:33:0014.7[facility] QpildwbJWAREIBBFG3982-76-00 04:33:0031.6[facility] LRKZKEBXOP2512-40-30 04:33:00 Test Item Value Reference Range Interpretation Comments MCH (test code = MCH) 27.2 pg 27.0-31.0 [facility] LibarqgRUXNNCRYFW5733-49-51 04:33:008.3[facility]annHEMATOLOGY 2015-09-04 04:33:27874Hjbgdwhk GbiusxlBLGIWOFPLG8146-56-89 04:33:005.5[facility] ZwnnzpeSCALAKKEJP8690-63-05 04:33:006.5[facility] HuzfsseNIQPUJWIXG0172-97-22 04:33:0031.7[facility] WtbzosqSMATJPZHVT4646-38-47 04:33:0055.0[facility] KHWVWGNJUI0538-08-37 04:33:000.5[facility] GoyrfqqNMEDDWOATW2183-09-74 04:33:002.3 [facility] ZbfrhdlYKLZAXIMEU0062-60-14 04:33:004.0[facility]annHEMATOLOGY 2015-09-04 04:33:001.3[facility] ZfozlbtMWJMTKPDXF1609-50-33 04:33:000.1[facility] YgstdicFCDBNKOUHO9256-86-82 04:33:000.4[facility]annCARDIAC JSUAPIM5588-25-29 10:25:00<0.02[facility]annCARDIAC IIROXNS9664-28-18 10:25:0075[facility]annCARDIAC ZIPJLHS0749-36-65 10:25:000.9[facility]annCARDIAC ENZYMES 2015-07-16 10:25:001.2[facility] HermannCHEM RPTXD2618-95-12 10:25:11005Qfoikohk HermannCHEM KHHSV6496-42-85 10:25:000.6[facility] HermannCHEM PJTMQ0115-03-83 10:25:003.1[facility] HermannCHEM SPLUI6618-85-23 10:25:009.0[facility] HermannCHEM CQZCV3798-98-42 10:25:006.3[facility] HermannCHEM HSBLA4070-90-66 10:25:0014 [facility]annCHEM CFGLQ6413-84-95 10:25:0089[facility] HermannCHEM PANEL 2015-07-16 10:25:0019[facility] HermannCHEM HPLUT4395-99-22 10:25:0025[facility] HermannCHEM TTFGO1226-25-89 10:25:004.2[facility] HermannCHEM BEARM6662-31-76 10:25:42851Nzzxmljs HermannCHEM RGALB3570-08-26 10:25:0014[facility] HermannCHEM AJCPZ1342-72-22 10:25:000.70[facility] HermannCHEM SKXCN0903-33-70 10:25:61215 [facility]annCHEM EVXZV4073-26-37 10:25:0078[facility] HermannCHEM PANEL 2015-07-16 10:25:0020[facility] HermannCHEM NAPVS0086-60-94 10:25:0010.2[facility] HermannCHEM MISUY1756-10-73 10:25:001.0[facility] HermannCHEM NJBHX2774-99-46 10:25:003.2[facility] JpgrfxjOQWTVDGFFT1703-41-83 10:25:008.6[facility] FVLGXIVJVN3295-52-45 10:25:78291Diqvkxwq FjxggzqRFLHFNUFWM9988-72-50 10:25:00 14.3[facility] BjozvbpROPJANEPCJ2231-53-86 10:25:004.53[facility]annHEMATOLOGY 2015-07-16 10:25:005.5[facility] JxgufbyWXOFDEVBPZ1867-58-27 10:25:00 Test Item Value Reference Range Interpretation Comments MCH (test code = MCH) 27.9 pg 27.0-31.0 [facility] GxbarjhRCHTXDOHFB6021-15-57 10:25:0031.5[facility] HermannHEMATOLOGY 2015-07-16 10:25:0088.6[facility] ZpwbovdYPDYDPDUFI8835-78-51 10:25:0040.2[facility] YzlttjfGUQCSPIQMV8331-97-45 10:25:0012.6[facility] LvzlqucYRANVLRGXS8192-24-63 10:25:000.2[facility] DpqxmhmXMVJBFWYUA5734-24-84 10:25:002.0[facility] RGTTBPYSEL7683-63-15 10:25:000.9[facility] HreslkpWLCQAANMUQ9435-24-41 10:25:000.6 [facility] LwooeecUYBZAWEILP2056-26-81 10:25:002.6[facility] HermannHEMATOLOGY 2015-07-16 10:25:0011.0[facility] QzgnwonVOANJMQLIC8313-23-39 10:25:004.0[facility] WhyzkfvYHXBQIFNHI1444-90-28 10:25:0036.1[facility] ChtlgxiIFKPIIUCGW8575-92-29 10:25:0048.0[facility] RikxczdNIRWIZXHPA0766-02-27 10:25:000.1[facility] CARDIAC LXOVBJZ7924-62-26 04:22:00<0.02[facility] HermannCARDIAC ENZYMES 2015-07-16 04:22:0088[facility]annCARDIAC PXTLDKX8009-00-72 04:22:001.1 [facility]annCARDIAC JLKHKMD2206-81-19 04:22:001.0[facility]annCARDIAC YKWSQPM5438-89-17 21:33:00<0.02[facility]annCARDIAC UFFQCIC8010-47-59 21:33:001.2[facility]annCARDIAC RILHLFG8360-57-71 21:33:81011Yajlrynz [facility]man CARDIAC BQOAPGF7535-88-04 21:33:001.2[facility] HermannCHEM KIIZY9711-30-78 21:33:0090[facility] HermannCHEM JOGLZ6271-44-27 21:33:0091[facility] HermannCHEM WUUZX3590-85-49 21:33:0019[facility] HermannCHEM ZZNVH4006-88-66 21:33:0017 [facility]annCHEM PZLGI5201-67-95 21:33:0012[facility] HermannCHEM PANEL 2015-07-15 21:33:000.8[facility] HermannCHEM RJYUO7493-35-92 21:33:0011.1[facility] HermannCHEM FCWEA5912-60-43 21:33:003.5[facility] HermannCHEM XKLNL6995-55-29 21:33:0027[facility] HermannCHEM DILCN9520-54-69 21:33:006.8[facility] HermannCHEM EXTAT6018-88-35 21:33:008.7[facility] HermannCHEM OCUTY3739-16-69 21:33:003.3 [facility]annCHEM SFLVP6100-87-53 21:33:001.1[facility] HermannCHEM PANEL 2015-07-15 21:33:000.80[facility]annCHEM SAJIG1867-68-04 21:33:05067Coogjbex HermannCHEM OLZZO4410-10-69 21:33:83791Zeqnvqsy HermannCHEM TUWDV2328-71-16 21:33:004.1[facility]annCHEM XVROX1304-19-24 21:33:0010[facility]annCHEM VKUIO8042-61-27 21:33:0072[facility] HhcydjsNYKQDIIQGQ4681-17-75 21:33:003.3 [facility] ImiqywnBIUOGCCSLR0044-06-58 21:33:000.2[facility] HermannHEMATOLOGY 2015-07-15 21:33:000.6[facility] VflskbkUGMSBLYNIH6980-25-24 21:33:002.3[facility] SkzfzzvUCCWOZLFUI2432-46-39 21:33:0051.8[facility] GrebkngPXENWMEZZS7942-84-43 21:33:000.6[facility] WnrsakfKZKPASZLBJ8843-18-28 21:33:003.1[facility] GVYBILPYMX2207-90-69 21:33:009.4[facility] FylnfzvSLTWKCWTXA6921-94-52 21:33:00 35.1[facility] IzztsidRDCLXPGYPJ4071-44-80 21:33:000.0[facility] HermannHEMATOLOGY 2015-07-15 21:33:009.1[facility] ZbtxxseMTRBDNQCFL8346-93-16 21:33:0087.6[facility] VcykpvzUYHTCAJZID5781-92-69 21:33:0012.9[facility] ZoxjvvhWYMKDDPPZG4355-42-18 21:33:0039.8[facility] UyshvdcOYMLJOFBNA9738-44-51 21:33:0032.3[facility] PGZZQOTMHO8180-56-69 21:33:0014.8[facility] UzoxqpjFWPBJQRSNC2558-00-93 21:33:00 Test Item Value Reference Range Interpretation Comments MCH (test code = MCH) 28.3 pg 27.0-31.0 [facility] CzsmhnrWGGLMBSIHF8380-78-03 21:33:31109Siazhcny HermannHEMATOLOGY 2015-07-15 21:33:004.54[facility] KlxysyxXVGVFMNGMS7065-15-43 21:33:006.4[facility] FrxwzytGKKYTZGDRI0520-88-26 19:18:00Negative (05/18/15 2:18 PM)[facility] CARDIAC WZAHHSN7065-10-95 18:26:00<0.02[facility]annCHEM PTEGU8692-70-73 18:26:000.1[facility]annCHEM LRZQG5941-24-03 18:26:003.9[facility]annCHEM RFYNA3336-62-44 18:26:10439Kxolmbex HermannCHEM CDFIQ3186-40-01 18:26:000.5 [facility]annCHE[facility] RTSAR2396-15-21 18:26:0022[facility]annCHEM PANEL 2015-05-18 18:26:0018[facility]annCHEM SSJPQ3136-48-28 18:26:007.9[facility]annCHEM FATSW4014-36-08 18:26:004.0[facility]annCHEM LFVYB9426-35-66 18:26:000.4[facility]annCHEM MVHDI6965-53-49 18:26:001.0[facility]annCHEM IDUCE7987-33-10 18:26:79513Pgrueaom HermannCHEM GDRMW1950 18:26:0078 [facility]annCHE[facility] TQBYF9601-23-44 18:26:04242Jpqwgytr HermannCHEM PANEL 2015-05-18 18:26:003.9[facility]annCHEM QMXGA3128-93-49 18:26:000.9[facility]annCHEM NNAFU8797-51-02 18:26:0087[facility]annCHEM QQDYS3607-21-81 18:26:007[facility]annCHEM DJZHH7557-02-78 18:26:00880Iacshucr HermannCHEM CJTFV1482-21-89 18:26:0028[facility]annCHE[facility] BTGIP7562-47-00 18:26:0010.2 [facility]annCHE[facility] HEUFH6914-15-28 18:26:0010.9[facility] HermannHEMATOLOGY 2015-05-18 18:26:0014.2[facility] LkhviqxMQEIVLOJOP3850-32-27 18:26:004.96[facility] WxiufrqTZLXOJQNPP2368-80-35 18:26:00 Test Item Value Reference Range Interpretation Comments MCH (test code = MCH) 28.7 pg 27.0-31.0 [facility] UslucksPQUEXABVHL9354-77-97 18:26:0032.9[facility] HermannHEMATOLOGY 2015-05-18 18:26:0043.3[facility] BdenlxkREKOCWIYSU0821-22-44 18:26:0087.2[facility] MooydwdYHAHFCGENR4786-50-21 18:26:006.8[facility] TcbhsmuWEAARIAZJN8181-23-50 18:26:86475Kxvnpses QflknaeUPRYSPUMBF0096-33-33 18:26:008.2[facility] PSRMEANAJT4467-82-16 18:26:0014.5[facility] FivxuybAPIMAJIOON6433-33-44 18:26:00 55.6[facility] OuqvusrAYDJVMFIWS9904-63-05 18:26:0032.7[facility] HermannHEMATOLOGY 2015-05-18 18:26:008.5[facility] AteckwtFJTWQIRIGD9039-54-58 18:26:003.8[facility] ZmpdmotNXSUZYTVWS8798-65-99 18:26:000.6[facility] DrjfuqjXQEYXYVUSM7029-12-49 18:26:002.2[facility] MksjgqfQEIHOQZLMW0185-30-48 18:26:002.6[facility] BKZVCVGICX6366-86-42 18:26:000.2[facility] VmdgyyjQEDEOVUDED2415-26-21 18:26:000.6 [facility] XsoqnhnIOIDGUMOSF8367-28-96 18:26:00Positive *NA*(05/18/15 1:26 PM) [facility] CehguhfSGLNFEDBVR4655-35-29 18:26:30596915Jjvjikkn HermannIMMUNOLOGY 2015-05-18 18:26:005.5[facility] HermannCARDIAC LEDCXZR5444-20-24 18:51:00<0.02 [facility]annCHEM TYJTA5990-31-17 18:51:0090[facility]annCHEM PANEL 2015-05-09 18:51:0028[facility]annCHEM EUASV1540-96-74 18:51:009.6[facility]annCHEM GXPRA2741-59-32 18:51:22383Lnyrahmv HermannCHEM SYTEB6175-31-34 18:51:000.8[facility] HermannCHEM BBOMZ7774-76-50 18:51:16048Edtkyevl HermannCHEM LFDZN1986-43-38 18:51:003.7[facility]annCHEM SXBXV4682-57-84 18:51:47610 [facility]annCHEM IDYMA0205-97-10 18:51:007[facility] HermannCHEM PANEL 2015-05-09 18:51:009.7[facility] HnexoxjWNJJKDKBQF3424-38-52 18:51:0014.4[facility] EobqcnrQWPFAWOUVH6242-17-21 18:51:0032.5[facility] LujeocpJXKSYHWBIT2460-43-64 18:51:00 Test Item Value Reference Range Interpretation Comments MCH (test code = MCH) 28.7 pg 27.0-31.0 [facility] XgshlyfOKUAOFGLOG8685-98-61 18:51:34943Rqweeavb HermannHEMATOLOGY 2015-05-09 18:51:007.6[facility] LyxkigyPWGHVEYSPY3368-69-95 18:51:0088.2[facility] AedzmueMZVSBMPPDG9853-43-44 18:51:0041.9[facility] XxsglzwGZNFIAIBBZ3318-32-64 18:51:004.75[facility] UxdruofSACVOOKMQZ2000-89-36 18:51:0013.6[facility] CQTULTVEHA7226-21-18 18:51:005.6[facility] WfvwyrwUSVITXBSUG7562-62-85 18:51:002.1 [facility] ZrmbhlkOFSHHPMCAG7614-75-12 18:51:000.1[facility] HermannHEMATOLOGY 2015-05-09 18:51:000.2[facility] UvvlqykTDUKSXNAGC2657-88-24 18:51:000.4[facility] EsnyzrsKBNZACGQAY0119-70-28 18:51:0050.8[facility] RbioatqHBVBOBIECT3939-66-50 18:51:002.8[facility] VzwggefRXJKDGEVOI3739-38-48 18:51:002.9[facility] MUVBUBHMPX6549-07-08 18:51:001.1[facility] HvkvgydXIHMRRYPIE2187-54-41 18:51:007.7 [facility] IjtrytaKYDPBBIQYZ5039-28-31 18:51:0037.6[facility] HermannCARDIAC ENZYMES 2015-05-02 22:03:00<0.02[facility]annCHEM NDFSI3279-55-11 22:03:003.2 [facility]annCHEM PKTBV7236-09-41 22:03:002.1[facility] HermannELECTROLYTES 2015-05-02 22:03:0012.4[facility] XeaxhryLESDPZBKLRII1045-53-31 22:03:0068[facility] TrlukpyYGFHFVFDKGMZ0093-24-35 22:03:16396Oxswchwz XizrkafBJEGHGDCLCZB9158-21-14 22:03:41259Eqfrihuc WlgxvanNXJTUYWLQCEC0914-83-54 22:03:0028[facility] AEMBSJVSVJCD9303-76-18 22:03:008.8[facility] NlqiunmNNLSRFOLKTPL0805-25-43 22:03:003.4[facility] HosksbcPBSGFRAOPVUD8270-24-12 22:03:000.9[facility] GZNCCFKQSTPP2091-73-16 22:03:0092[facility] HdjsvjsWLBTAKEFKRUH6157-55-88 22:03:00 6[facility] OfkqfbhJFIHWXZLBE7115-55-74 22:03:008.0[facility] HermannHEMATOLOGY 2015-05-02 22:03:0014.1[facility] VoiwdvzIDUSLPMKCP4738-62-89 22:03:03192Qapuibkm BevzoiuFBMWWUPFEJ4306-01-58 22:03:0032.6[facility] QkcgwhbFJFMRXFPCY1936-35-34 22:03:008.0[facility] YqrczmdBBJALIMXOG8321-70-20 22:03:0040.2[facility] GUADXMLXHR3619-59-53 22:03:0087.4[facility] RbfybntSDOILEVXVY9312-46-49 22:03:00 13.1[facility] QkogzggUJCNINYSDF6550-42-10 22:03:004.60[facility] HermannHEMATOLOGY 2015-05-02 22:03:00 Test Item Value Reference Range Interpretation Comments MCH (test code = MCH) 28.5 pg 27.0-31.0 [facility] JyzxsufKCVMFYSWIN9341-66-79 22:03:0026.3[facility] HermannHEMATOLOGY 2015-05-02 22:03:0060.9[facility] XttlmtxNQGPVGWMJD9191-13-01 22:03:001.0[facility] QqmyatrGEWPOYZPVX0604-90-51 22:03:003.0[facility] WypvikcSBSENEJPXY1155-63-78 22:03:008.8[facility] IxslpbdDYZEUUHQJL8930-36-13 22:03:000.7[facility] ODPPHNVJHL1484-34-39 22:03:000.2[facility] UrgilyeYBJROFVDAB5812-67-30 22:03:002.1 [facility] KaqfcpqOBGHUBHQKO4911-08-72 22:03:004.9[facility]annHEMATOLOGY 2015-05-02 22:03:000.1[facility] CKEDY4512-60-96 21:38:00Negative (05/02/15 4:38 PM)[facility] YAIOT5337-70-73 21:38:00Moderate *ABN*(05/02/15 4:38 PM)[facility] HAGUA7630-84-77 21:38:00None Seen (05/02/15 4:38 PM)[facility] EZCDE2903-56-98 21:38:00None Seen (05/02/15 4:38 PM)[facility] OSCZB7566-83-89 21:38:00Negative (05/02/15 4:38 PM)[facility] KEBQC0723-81-08 21:38:00Negative *NA*(05/02/15 4:38 PM)[facility] IMICD8614-04-30 21:38:000.2 [facility] QKMUJ9816-59-22 21:38:00Negative (05/02/15 4:38 PM) [facility] GNYMP7446-51-59 21:38:00Negative *NA*(05/02/15 4:38 PM) [facility] WPOCX3299-89-20 21:38:00Yellow *NA*(05/02/15 4:38 PM) [facility] DLOXY9426-51-66 21:38:00 Test Item Value Reference Range Interpretation Comments UA pH (test code = UA pH) 6.0 1 5.0-8.0 [facility] GFESY3835-01-11 21:38:00Slight Cloudy (05/02/15 4:38 PM) [facility] KFQDM6393-93-19 21:38:00Negative (05/02/15 4:38 PM) [facility] UFJSW2833-25-78 21:38:00 Test Item Value Reference Range Interpretation Comments UA Spec Grav (test code = UA Spec 1.006 1 Grav) [facility]annCHEM FLJMC4684-91-11 09:28:75286Cuucpwip HermannCHEM PANEL 2015-03-24 09:28:26433Pommpeky HermannCHEM BTXHP8315-58-17 09:28:000.7[facility]annCHEM UDPWN8495-93-60 09:28:004[facility]annCHE[facility] RRTIE2132-35-57 09:28:003.2[facility]annCHEM WPDCV1543-13-05 09:28:07652Jmnsclpn HermannCHEM BMCXN8155-13-74 09:28:0091[facility]annCHE[facility] TTHIP0410-58-60 09:28:003.5 [facility]annCHE[facility] TBWAL1461-54-36 09:28:006.6[facility]annCHEM PANEL 2015-03-24 09:28:64140Zkhrhcff HermannCHEM OCLVA2575-95-38 09:28:009.1[facility]annCHEM KOSFD5663-80-70 09:28:0027[facility]annCHEM MOPAC7533-89-27 09:28:0011.2[facility]annCHEM BYFCG8669-27-39 09:28:0021[facility]annCHEM GWHCK8687-43-86 09:28:0034[facility]annCHEM DYYJZ5421-66-19 09:28:000.6 [facility]annCHEM ARPIK4331-25-18 09:28:0095[facility]annCHEM PANEL 2015-03-24 09:28:006[facility]annCHEM HQHWX2703-36-54 09:28:001.1[facility]annCHEM RKWGT2880-09-35 09:28:003.1[facility] VnalusfCKWABDLWFP0458-67-26 09:28:0011.3[facility] QvnpmbeVDSYFPDBFR1546-18-82 09:28:0027.1[facility] KWGRXDZPQZ0283-15-02 09:28:005.9[facility] RosbnkoGYPVLIGPBL7679-53-38 09:28:003.3 [facility] QjaevfgQJYAGJHMXV2085-99-68 09:28:000.7[facility] HermannHEMATOLOGY 2015-03-24 09:28:0055.0[facility] CxuzkwoDJSRZIVZJB9492-16-34 09:28:000.7[facility] NafcvzfSOSXHMDRKW7705-65-60 09:28:001.6[facility] TalhbfwGULTGFNLBN5352-47-14 09:28:000.4[facility] GnsrkvkHDRKWICDAC3748-07-10 09:28:004.21[facility] BKUGWTGIDM4783-78-72 09:28:005.9[facility] CdhplmkKJDCNIRWWH3037-77-17 09:28:90584 [facility] XhpgsdiGCPOJUQCIF6066-74-39 09:28:0032.4[facility] HermannHEMATOLOGY 2015-03-24 09:28:0014.2[facility] MsonpesPWQFSZYTAK8728-84-95 09:28:008.6[facility] XwoubrsIYSEBJYBWD9011-19-76 09:28:0037.2[facility] HcrpxucEFNOVEZCVN5697-21-32 09:28:0088.3[facility] WmxpqdiAIXVPADEOC7344-56-64 09:28:0012.1[facility] FVVUOMMIKJ0922-53-16 09:28:00 Test Item Value Reference Range Interpretation Comments MCH (test code = MCH) 28.6 pg 27.0-31.0 [facility] UGKKY2383-18-80 18:14:00Negative (03/23/15 1:14 PM) [facility]annCARDIAC PSMAJHX2660-17-66 10:51:000.8[facility]annCARDIAC JDOZUDZ7641-91-91 10:51:0070[facility]annCARDIAC KNKQDZM7999-01-20 10:51:00 1.1[facility] HermannCHEM NSHDS7618-38-74 10:51:58516Tjsuqykr HermannCHEM PANEL 2015-03-23 10:51:0027[facility]annCHEM FIYCC5873-81-26 10:51:009.2[facility]annCHEM XWCRH3022-64-96 10:51:77811Klzuvina HermannCHEM IXNNE3288-87-14 10:51:69998Zmoewjap HermannCHEM ZQEXF2261-86-73 10:51:003.5[facility]annCHEM TSLRF4811-51-88 10:51:000.7[facility]annCHEM SDPYQ1623-05-89 10:51:008 [facility]annCHEM UFKFM3956-77-22 10:51:19018Kkbwbwja HermannCHEM PANEL 2015-03-23 10:51:0010.5[facility] YbndaluOYLABXJYFA4640-52-84 10:51:001.3[facility] FmhugzrQBJAVCUHIT7294-89-91 10:51:003.4[facility] WavcvvfTEMHZIWEEE0066-87-90 10:51:000.6[facility] OykoozxFAZDSLKLXN5956-24-09 10:51:004.0[facility] JQRXRNVYHE4638-83-65 10:51:000.2[facility] RdxmhwgISYPSOAXOE0434-34-22 10:51:000.6 [facility] KbumizwGSSHVNLBKK3912-11-67 10:51:0011.0[facility] HermannHEMATOLOGY 2015-03-23 10:51:0023.6[facility] FvaqxnaZEETFWQOAS4939-36-22 10:51:0060.8[facility] YmisfokCIOZZFTMEI3700-76-08 10:51:008.3[facility] MbgywrtCRCRJPUKOI2394-78-76 10:51:22468Dfvwhvje KcvuiegIQWJZHCXOW1477-89-37 10:51:0014.6[facility] LBCTDHFQAU0563-52-72 10:51:0088.0[facility] PukdlhmAPMRKAPRQC7070-02-47 10:51:00 Test Item Value Reference Range Interpretation Comments MCH (test code = MCH) 28.7 pg 27.0-31.0 [facility] HlymjqaZUJIIEOYHR9126-96-50 10:51:0034.7[facility] HermannHEMATOLOGY 2015-03-23 10:51:0032.6[facility] SgmfqquUREFBQDKOS3078-13-36 10:51:0011.3[facility] NzgayqiLQSRSWVRPR1181-13-56 10:51:003.94[facility] BheyhojTHKZAMCYMC4941-34-04 10:51:005.6[facility] HermannCARDIAC VSJPTMB4188-64-40 10:19:001.6[facility] CARDIAC BACKYZD5294-57-79 10:19:001.0[facility]annCARDIAC MYKPKZV1998-76-54 10:19:0064[facility]annCHEM VCVWD9850-03-50 10:19:63318Sjabvspc HermannCHEM GEBCJ0561-65-15 10:19:008.7[facility] HermannCHEM MNUBR3284-31-93 10:19:19032 [facility]annCHEM DRLTM1999-35-66 10:19:003.9[facility] HermannCHEM PANEL 2015-03-22 10:19:16232Dyeasbiu HermannCHEM FSCVL1744-53-43 10:19:0027[facility]annCHEM NMEIN5607-66-79 10:19:0094[facility]annCHEM RBQEY8773-48-91 10:19:008[facility]annCHEM CYIVK1131-95-20 10:19:000.6[facility] HermannCHEM HDGNV7974-11-97 10:19:008.9[facility] PzwkramTPXJAKWNQK4754-73-27 10:19:000.2 [facility] BkkhftlLBKKBXKQZS9761-53-45 10:19:000.5[facility] HermannHEMATOLOGY 2015-03-22 10:19:000.9[facility] FeguhcuGBNUKLDBNH1008-74-93 10:19:0011.2[facility] LutdiyxRKTRSNRUKJ7342-38-99 10:19:002.1[facility] WftruynQNVUERKYKE6641-85-43 10:19:003.7[facility] ChyxpxkGVBOTNCRKH0028-01-62 10:19:001.6[facility] SBXGHOKCDI8869-83-57 10:19:0048.6[facility] FyygdnaHWRAENQNJS0933-43-72 10:19:00 35.emorial ZjmyhdfXNJEIYYUTW5231-22-31 10:19:008.9[facility] HermannHEMATOLOGY 2015-03-22 10:19:004.4[facility] YvmvmxwCXAEMGHMMP1681-39-22 10:19:00 Test Item Value Reference Range Interpretation Comments MCH (test code = MCH) 29.9 pg 27.0-31.0 [facility] EddlgtpHDAOVMBEWF8958-78-93 10:19:0086.5[facility] HermannHEMATOLOGY 2015-03-22 10:19:0034.6[facility] LvahwgfDPMZWFSZPR1238-56-15 10:19:0011.7[facility] QzsnskoQSSAFCJMVZ6896-46-21 10:19:003.92[facility] AiwvpxjAZEDYOAEAV6472-97-38 10:19:0033.9[facility] ElddpptRESDPIBWHO2716-23-43 10:19:0014.6[facility] NRJPVVRCGH6865-68-79 10:19:68979Dzarepdr HermannCARDIAC OWWQTUB6001-71-21 03:22:001.6[facility]annCARDIAC LDSEVUT5171-77-59 03:22:0077[facility] CARDIAC ZPXINXA6905-03-01 03:22:001.2[facility] HermannCHEM NAQNK4386-03-63 02:44:001.4[facility]annCARDIAC MTXOWUP4730-32-90 21:13:00<0.02[facility] HermannCHEM NBVLR0565-55-17 21:13:003.3[facility]annCHEM DQLRP7565-93-23 21:13:001.1[facility] HermannCHEM WZUHD5087-19-20 21:13:0016[facility]annCHEM TOOOU9031-69-33 21:13:24271Zyzcrcqv HermannCHEM UURKO7819-82-29 21:13:0025 [facility]annCHEM STWUI1400-53-75 21:13:000.5[facility] HermannCHEM PANEL 2015-03-21 21:13:0032[facility] HermannCHEM WIWJE5958-50-09 21:13:003.7[facility] HermannCHEM NIEYO9686-31-68 21:13:007.0[facility] QgnjsuqMUVKLSUPCQ0019-20-76 21:13:000.0[facility] RmuvxaoCBGTKNCBXK6948-69-85 21:13:001.04[facility] GZMRXQIBGE5931-72-83 21:13:00 Test Item Value Reference Range Interpretation Comments PT (test code = PT) 13.6 s 12.0-14.7 [facility] WpoiminSLPRIDOCXB8902-94-21 21:13:00 Test Item Value Reference Range Interpretation Comments PTT (test code = PTT) 35.2 s 22.9-35.8 [facility]annCARDIAC UOEZDXS3174-44-81 21:10:006[facility]annCARDIAC DMLSCFZ7929-23-08 21:02:00<0.02[facility]annCARDIAC XXNUXOZ5928-06-27 21:02:0031[facility]annCARDIAC JBCVZJV9249-97-28 21:02:000.8[facility] CARDIAC MYLYVEA6915-65-39 21:02:0070[facility]annCARDIAC EHCQCWY2077-43-82 21:02:001.1[facility] HermannCHEM UNXGM2247-16-27 21:02:02997Legmrkhj HermannCHEM CYBGH6708-47-60 21:02:0099[facility]annCHEM CVCQP0173-55-32 21:02:000.6 [facility]annCHEM DJIUT7201-68-27 21:02:0011[facility]annCHEM PANEL 2015-03-11 21:02:009.4[facility] HermannCHEM KHFHD7547-59-37 21:02:003.1[facility]annCHEM HKEYU7524-27-44 21:02:001.1[facility]annCHEM ZGNYA0522-97-08 21:02:0073[facility]annCHEM XGYDZ7082-43-30 21:02:008[facility]annCHEM CGPCU7513-09-22 21:02:000.7[facility]annCHEM TNQZD6580-44-89 21:02:55837 [facility]annCHEM ZBPLW9001-33-43 21:02:003.4[facility] HermannCHEM PANEL 2015-03-11 21:02:0028[facility] HermannCHEM WCRKU4214-00-35 21:02:06476Wlbnjvjk HermannCHEM NKZTG2311-44-46 21:02:008.9[facility] HermannCHEM KELTY2675-55-05 21:02:006.5[facility] HermannCHEM JOKCL0424-29-77 21:02:003.4[facility] HermannCHEM DYLQK7618-28-08 21:02:0030[facility] HermannCHEM VSLGQ7601-02-66 21:02:0021 [facility] AkltayoKMQROXBLQE9046-96-41 21:02:0015.1[facility] HermannHEMATOLOGY 2015-03-11 21:02:0033.1[facility] NbpmjxkHIFNGUPTKL1116-63-52 21:02:47252Hvrgvidu FcmcbeeBSXSFZHHMC7689-36-40 21:02:008.1[facility] QhcvvxqMHITVINOAN8722-84-27 21:02:0034.6[facility] AqxbruxKPJLONIBNF1711-61-20 21:02:0011.5[facility] UWPGDEKAPZ2052-93-42 21:02:00 Test Item Value Reference Range Interpretation Comments MCH (test code = MCH) 28.8 pg 27.0-31.0 [facility] TwbfpmlJCXJLNPHBS6778-89-74 21:02:0086.9[facility] HermannHEMATOLOGY 2015-03-11 21:02:003.98[facility] LkdnjgoBDEKFIJEKJ7011-25-62 21:02:006.5[facility] SvudndkHLNQQHULVI8761-28-33 21:02:00 Test Item Value Reference Range Interpretation Comments PTT (test code = PTT) 32.8 s 22.9-35.8 [facility] ZohvvqaUNDORNBWBJ7931-24-64 21:02:00 Test Item Value Reference Range Interpretation Comments PT (test code = PT) 13.3 s 12.0-14.7 [facility] WanymktYECSMTRYFX1607-50-59 21:02:001.01[facility] HermannHEMATOLOGY 2015-03-11 21:02:000.0[facility] JharhilLUDNKLRCML4782-13-23 21:02:003.7[facility] UozpdpyROQFDRGPXJ5466-04-48 21:02:000.2[facility] RzxibjqSMEEOUQHVZ9913-16-83 21:02:000.6[facility] LskktpyPNHTQTSKUZ1362-67-05 21:02:001.9[facility] IZKJEJJEPQ1696-84-95 21:02:0056.9[facility] LnyxwmaYFYIOENTKB5546-85-72 21:02:00 2.7[facility] InkoiijUNADJANUEQ9181-74-17 21:02:000.4[facility] HermannHEMATOLOGY 2015-03-11 21:02:009.9[facility] PkmlgevNSRFCQITCX6901-87-32 21:02:0030.1[facility] HermannCARDIAC IOCDHHE1325-73-10 09:33:00<0.02[facility]annCARDIAC ENZYMES 2015-03-05 06:16:00<0.02[facility] HermannCHEM DVQCI4113-53-95 06:16:001.1 [facility]annCHEM LOVSL1241-64-77 06:16:003.5[facility] HermannCHEM PANEL 2015-03-05 06:16:000.5[facility] HermannCHEM HHQHU0189-52-13 06:16:000.1[facility]annCHEM ASXND0886-32-24 06:16:0025[facility]annCHEM TPZTG7424-98-67 06:16:0021[facility]annCHEM XTENA5517-19-49 06:16:003.7[facility]annCHEM OVHPC2770-61-80 06:16:91230Jzydgsry HermannCHEM SFJRB0970-23-69 06:16:000.6 [facility]annCHEM PFKGU5281-34-67 06:16:007.2[facility] HermannCHEM PANEL 2015-03-05 06:16:92746Rmjyhxsd WztyjlrZPBGICOUEJCQ7075-74-84 06:16:0012.6 [facility] MwimmqiLBEWBYICERID9555-99-24 06:16:0078[facility] HermannELECTROLYTES 2015-03-05 06:16:009.6[facility] RbziqenPBLUYXMJMNSQ6394-95-17 06:16:0029[facility] JjexqagTHOSPMIJTFLY3314-53-06 06:16:003.6[facility] TghjhcmFCXYXGCSPVGY8183-30-97 06:16:40166Pbqvgiuy GatbhlgMFTPWHCCWKJV9194-48-88 06:16:10454Dokqyfjx [facility] LDVRVLBMNICS9369-83-13 06:16:000.8[facility] NzevcnbBVPOUPJDBBVC5357-19-13 06:16:009[facility] EfutlcrYTBYUZLEBLMN4933-11-21 06:16:0096[facility] YHFNLIYODP3268-85-92 06:16:002.6[facility] ZalnfdnMTEWGTDXJW3746-53-07 06:16:000.9 [facility] UkmbnzwKYOQLMWIZQ9843-39-03 06:16:000.7[facility] HermannHEMATOLOGY 2015-03-05 06:16:001.7[facility] IhgfuqzABWDIOYQMN1487-00-49 06:16:006.7[facility] AaooigsCJYWHPONVZ2950-22-50 06:16:0025.0[facility] ButedfsAWXRVGDXDD9369-81-16 06:16:0064.3[facility] UalurkySDXOREGYDA1560-65-93 06:16:008.3[facility] NYKIZAMZLK4632-91-31 06:16:000.2[facility] TpqyixpHKGTPUPOKF2134-79-80 06:16:000.1 [facility] RptgjpuCYNRWVDVSF6508-79-18 06:16:0087.7[facility] HermannHEMATOLOGY 2015-03-05 06:16:0039.7[facility] MdkxmuuCKTGYWIJUZ4901-05-74 06:16:008.0[facility] UewjcpxCGPPTXFURO2392-22-01 06:16:22960Qttrqwgb ZmvvrddEPGFAZYIEZ6747-90-66 06:16:0014.6[facility] UocidawNLCHHXLUHJ6670-03-93 06:16:0032.4[facility] FWUNVDYGQL1951-36-20 06:16:00 Test Item Value Reference Range Interpretation Comments MCH (test code = MCH) 28.4 pg 27.0-31.0 [facility] GvtijjtQBIAQAUSOB1021-04-34 06:16:0010.5[facility] HermannHEMATOLOGY 2015-03-05 06:16:004.53[facility] OrowplhMXYHHUPLJO6434-34-28 06:16:0012.9[facility] HermannCHEM MYJAF3597-34-57 09:16:002.0[facility] HermannCHEM YJEBN2524-05-36 09:16:003.6[facility] HermannCHEM HLGDD7117-55-01 09:16:09953Iqohggaf HermannCHEM VZRUJ3177-55-71 09:16:0017[facility]annCHEM ADMPW9299-65-76 09:16:003.3 [facility]annCHEM GVZTD0500-58-98 09:16:001.1[facility] HermannCHEM PANEL 2015-02-25 09:16:006.3[facility] HermannCHEM JRMVK4704-87-76 09:16:0021[facility]annCHEM HTWSG2544-60-83 09:16:003.0[facility] HermannCHEM GGOSO1061-88-40 09:16:000.5[facility]annCHEM OTHDE4042-56-68 09:16:19361Vkaydsbh HermannCHEM URPPZ7082-44-34 09:16:0011[facility]annCHEM VZNZE2768-46-25 09:16:009.1 [facility]annCHEM KTFBE5367-65-16 09:16:0099[facility]annCHEM PANEL 2015-02-25 09:16:008[facility] HermannCHEM OOHBA4836-77-24 09:16:48479Ehjybimq HermannCHEM FDMXN7666-31-63 09:16:000.7[facility] HermannCHEM AHLHJ9891-81-30 09:16:008.9[facility] HermannCHEM EENOV1410-27-67 09:16:76475Bjucyxaf HermannCHEM OQXGJ9117-21-43 09:16:0028[facility] HermannCHEM UBKOT1254-22-87 09:16:003.9 [facility] YmeiqbfIEELHVNWZX6065-12-28 09:16:06972Whtqufvg HermannHEMATOLOGY 2015-02-25 09:16:008.8[facility] FjqgnruXIFDOCTVMY7085-30-74 09:16:0014.9[facility] DndsmdoBYIZZCYGVR6430-19-30 09:16:005.9[facility] YgdhgeiZTFHOAQAJB0779-84-61 09:16:0088.4[facility] VwurrpeHLDGHUSXSC6937-00-65 09:16:0037.2[facility] ZOXKOGUFDH8745-70-79 09:16:00 Test Item Value Reference Range Interpretation Comments MCH (test code = MCH) 28.6 pg 27.0-31.0 [facility] CqbshclSSBJVNOOCE1914-64-76 09:16:0032.4[facility] HermannHEMATOLOGY 2015-02-25 09:16:004.21[facility] UbhwdvdDMRVQCGMWB8592-69-52 09:16:0012.0[facility] TyzqjahKDGPFEXOJB6374-84-74 09:16:0031.9[facility] NinkcrcUZNBVIDLKT3445-42-85 09:16:000.8[facility] LpqhntpHPEIGAIBPJ8728-57-42 09:16:003.1[facility] DETTADXCQO9112-33-13 09:16:0011.6[facility] EgewxvkYCEJFSSZFW3223-02-06 09:16:00 2.9[facility] OmpuzvkKSEBAKBDRN9841-72-23 09:16:0052.8[facility] HermannHEMATOLOGY 2015-02-25 09:16:000.7[facility] RkjitslNZRMZMHSVH8520-06-86 09:16:001.9[facility] WdqcbkxPZQEVRQFYV1957-49-10 09:16:000.2[facility] HermannCARDIAC UDJMKFR5298-47-09 04:30:0074[facility]annCARDIAC WNQUONU2483-41-39 04:30:001.2[facility] CARDIAC YHTFHAV0947-94-42 04:30:00<0.02[facility] HermannCARDIAC ENZYMES 2015-02-25 04:30:000.9[facility]annCARDIAC IDOSWWS1879-32-70 23:29:00<0.02 [facility]annCARDIAC DUAIUVZ4045-51-00 23:29:000.7[facility]annCARDIAC YPIHVPJ7328-38-92 23:29:0068[facility]annCARDIAC OOZRZXR5881-66-19 23:29:00 1.0[facility]annCARDIAC CWEMQHC4884-67-35 17:33:000.9[facility]annCARDIAC YHRHZHW2106-64-57 17:33:00<0.02[facility]annCARDIAC VBQLRBB3900-49-01 17:33:000.7[facility]annCARDIAC EOTEZSI9916-61-29 17:33:0076[facility] CHEM FSQUN9975-14-25 17:33:0090[facility] HermannCHEM SBFSK1351-71-46 17:33:003.1 [facility] HermannCHEM OLODV6266-60-63 17:33:95595Nogyxejj HermannCHEM PANEL 2015-02-24 17:33:000.3[facility] HermannCHEM XEWOP6543-24-72 17:33:001.1[facility] HermannCHEM ZZBXZ5334-49-56 17:33:007.3[facility] HermannCHEM LHOJI7600-80-86 17:33:0012[facility] HermannCHEM SLEOT9427-74-24 17:33:000.8[facility] HermannCHEM JUNON9679-19-04 17:33:08208Yxlbobdd HermannCHEM URLBV1789-21-16 17:33:0088 [facility]annCHEM ITSTS3663-54-19 17:33:003.3[facility] HermannCHEM PANEL 2015-02-24 17:33:56589Uajdupoo HermannCHEM ZWWVJ8029-42-90 17:33:0010[facility] HermannCHEM EHQJT9977-76-61 17:33:0015[facility] HermannCHEM CVXIV4560-00-77 17:33:0022[facility] HermannCHEM BVQQV6108-09-62 17:33:008.9[facility] HermannCHEM QTDZZ9145-53-26 17:33:0030[facility] HermannCHEM SDTUU2646-02-10 17:33:006.6 [facility]annCHEM PTIYZ3481-80-21 17:33:003.5[facility] HermannHEMATOLOGY 2015-02-24 17:33:0055.9[facility] VsimiwlTGZTGNMJKM8168-57-67 17:33:0028.7[facility] BbrolubDQGCUXESPX3113-11-33 17:33:003.7[facility] AnkafbnSOLWNTJMIW7990-89-58 17:33:000.7[facility] TuvjphtOJBXYEOEDL8650-37-33 17:33:001.9[facility] ZDDHRYYQNM8635-58-25 17:33:002.2[facility] GlgcedhSETGDSVUFF7982-93-08 17:33:00 12.5[facility] PcefqxeRAPZTGPLYF6191-22-68 17:33:000.0[facility] HermannHEMATOLOGY 2015-02-24 17:33:000.1[facility] NpbbpdtKBLTWKMIYD8336-65-66 17:33:000.8[facility] JqhwgcxBZIQALPVGA8965-90-82 17:33:008.8[facility] BgixtwvWGBTESGCXQ0594-65-49 17:33:00 Test Item Value Reference Range Interpretation Comments MCH (test code = MCH) 28.1 pg 27.0-31.0 [facility] FlvremiTKIFXDPQXI2955-88-53 17:33:0014.8[facility] HermannHEMATOLOGY 2015-02-24 17:33:0032.2[facility] SzrjankZQQTNWFDRM8581-76-74 17:33:41620Ntjoajcw DxkzmixUXUTUFWSOX5943-85-96 17:33:0011.4[facility] JrwivzmRFFCZQFOAF9648-28-17 17:33:004.04[facility] XctqjghXDNCXJQGSG8781-44-59 17:33:006.5[facility] SEQESFMMCR3660-36-18 17:33:0035.3[facility] PtuxrwlLWOLFQDDZO9106-13-18 17:33:00 87.2[facility] HermannCARDIAC LCAWJLH3173-24-90 09:54:006[facility]AC TQLJKJE5893-87-70 09:54:00<0.02[facility] QECKGJQ8610-44-41 09:54:001.0[facility]annC[facility]AC ISUISHD6519-88-76 09:54:0077[facility] CHEM ENGLD8971-81-50 09:54:001.8[facility]annCHEM TRQIT1562-08-09 09:54:59449 [facility]annCHEM EBEFA6076-42-49 09:54:08132Paoxvdla HermannCHEM PANEL 2015-02-17 09:54:003.8[facility]annCHEM RPKOF6281-31-56 09:54:58010Ucusmtcd HermannCHEM FSXVG5033-93-72 09:54:008.6[facility]annCHEM FWMUB7725-37-02 09:54:0011.8[facility]annCHEM YFFLW6438-19-05 09:54:0025[facility]annCHE[facility] ZGBPJ1057-64-21 09:54:000.6[facility]annCHEM LNHPF6415-95-32 09:54:006 [facility]annCHE[facility] QWQOS8256-36-63 09:54:0072[facility]annHEMATOLOGY 2015-02-17 09:54:0011.5[facility] TbxmaxfCJZDFB2104-75-53 09:54:0051[facility] WfimtohDWBVGG9849-08-74 09:54:0017[facility] DemqysqBYYOGA3888-05-73 09:54:0096 [facility] AtswcuqDPUJAN5173-70-97 09:54:44863Gglwsfdr FctbhckOOBBBZ1175-64-90 09:54:0084[facility] EemxnzbGMFPRB5291-85-03 09:54:003.22[facility]annSPECIAL QWBDWNMOH8904-49-57 09:54:005.8[facility]annCARDIAC MWFAKHV6670-55-72 04:20:00<0.02[facility]annC[facility]AC OKGQVOW2659-98-68 04:20:0092[facility]AC DHYSXNS7372-56-14 04:20:001.2[facility]annCARDIAC ENZYMES 2015-02-16 22:59:001.2[facility]AC ZNZQJKY0707-29-66 22:59:001.3 [facility] WHIYDXP1425-37-91 22:59:0093[facility]AC VEMNSEU0525-66-87 22:59:00<0.02[facility]annCARDIAC WFHZWRY6799-53-69 22:59:004[facility]annCHEM JKMAW6269-33-28 22:59:31013Zdaclifu HermannCHEM MTJUP6752-84-23 22:59:001.0[facility]annCHEM PDDKB9451-03-87 22:59:003.6 [facility]annCHE[facility] YQSDT0281-82-19 22:59:000.4[facility]annCHEM PANEL 2015-02-16 22:59:000.1[facility]annCHEM MYGRP7258-63-06 22:59:000.5[facility] HermannCHEM SCIAN3833-19-57 22:59:007.3[facility]annCHEM EXWKY3343-99-57 22:59:99506Ztgtwwye HermannCHEM HEMIW6485-45-58 22:59:0015[facility]annCHEM DXCKJ1868-08-32 22:59:0021[facility]annCHEM UAIUM7816-28-16 22:59:003.7 [facility]annCHEM CRVZA8062-17-77 22:59:003.1[facility]annCHEM PANEL 2015-02-16 22:59:001.9[facility]annCHEM QAOIN5321-06-22 22:59:0090[facility]annCHEM COEGB5130-63-40 22:59:009.0[facility]annCHEM TLMBW5738-71-40 22:59:0028[facility]annCHEM NECJZ2939-00-85 22:59:92343Ebhmvjxk HermannCHEM UAWKS1051-48-76 22:59:000.8[facility]annCHEM TRUNU6837-29-38 22:59:0011 [facility]annCHEM MTJMW7693-78-73 22:59:003.5[facility]annCHEM PANEL 2015-02-16 22:59:11938Txqnwtwd HermannCHEM KCFSH1149-69-83 22:59:0076[facility]annCHEM CXHHZ8044-29-76 22:59:007.5[facility] UpobzjaJGSHHFTJQA6335-73-53 22:59:003.3[facility] DrmavjdUWNZYRSQRB1267-72-38 22:59:009.1[facility] TMRFAAGRMG4643-11-69 22:59:0028.9[facility] BeuuudkDQYZBQMOBE7709-12-23 22:59:00 58.3[facility] WgdpopoLHQSHLMVOX4565-89-91 22:59:003.8[facility] HermannHEMATOLOGY 2015-02-16 22:59:000.4[facility] CroeuckCJCFVDGUXL9995-18-45 22:59:000.6[facility] HhdjbhaREGQWNUUCD1415-04-68 22:59:001.9[facility] WhbckruCLWNWYGTEU8206-17-53 22:59:000.2[facility] CgiifzzDVBTKTZSKU3750-71-17 22:59:000.0[facility] NLPYNGCZOD0641-98-79 22:59:00 Test Item Value Reference Range Interpretation Comments PTT (test code = PTT) 36.0 s 22.9-35.8 [facility] BkzumonJMNIKFJXTE2377-47-12 22:59:00 Test Item Value Reference Range Interpretation Comments PT (test code = PT) 12.9 s 12.0-14.7 [facility] AojbflzBZCGKXYJCI1717-58-26 22:59:000.97[facility] HermannHEMATOLOGY 2015-02-16 22:59:28244Hiotliys HrfndrkLTOGQOGBAX6870-18-65 22:59:0014.7[facility] GewuzhoCJQOPFVNPC2706-08-72 22:59:008.7[facility] FniedpkLABXMCPUSS3298-01-82 22:59:0032.6[facility] GouqeqhMODKABJJVX7618-85-61 22:59:0039.5[facility] DMITWLYLKI4313-86-03 22:59:0087.3[facility] KmyiudyIPDJRXQYGC7082-11-28 22:59:00 Test Item Value Reference Range Interpretation Comments MCH (test code = MCH) 28.4 pg 27.0-31.0 [facility] AbrkhozRFMOGGYHAG3698-85-30 22:59:004.52[facility] HermannHEMATOLOGY 2015-02-16 22:59:0012.9[facility] DhqjpmkQZBSUCCDXE0229-58-22 22:59:006.5[facility] BmyhmnoLSKLVCXJA7941-87-25 22:59:0046[facility]annCARDIAC WSHERBS0202-91-35 21:17:0015[facility]annCARDIAC UPRSUCD2150-33-39 21:17:00<0.02[facility]annCARDIAC YAFSSKD4498-87-99 21:17:0080[facility]annCARDIAC ENZYMES 2013-12-22 21:17:00<0.5[facility]annCARDIAC FAFZXWT9852-94-05 21:17:00 <0.6[facility] HermannCHEM XKPTH8667-31-78 21:17:69073Lcptjkcj HermannCHEM FJVEK2575-34-80 21:17:003.6[facility]annCHEM QEPDG2892-49-10 21:17:0017 [facility]annCHEM QDMAK6899-46-63 21:17:001.1[facility] HermannCHEM PANEL 2013-12-22 21:17:76718Ycnjrxwv HermannCHEM EEBGP7830-05-15 21:17:0034[facility] HermannCHEM QTVGI3927-15-52 21:17:003.9[facility]annCHEM PYHKU7731-45-88 21:17:0089[facility]annCHEM VFGYA4855-67-45 21:17:0022[facility]annCHEM GYMOE6833-29-15 21:17:000.6[facility]annCHEM EZUHG5119-22-40 21:17:005.5 [facility]annCHEM FUELJ4156-01-00 21:17:000.6[facility] HermannCHEM PANEL 2013-12-22 21:17:0010[facility] HermannCHEM OMMLW8673-82-17 21:17:003.5[facility] HermannCHEM RMUCQ8195-83-21 21:17:71166Jxasvmkl HermannCHEM EWOAE6671-44-38 21:17:03680Ehcktvox HermannCHEM TAIEP7453-60-14 21:17:0029[facility] HermannCHEM HADZE3137-07-58 21:17:007.5[facility]annCHEM XCNSE0539-69-48 21:17:009.2 [facility]annDR[facility] SRWWMV9583-12-88 21:17:00Negative *NA*(12/22/13 4:17 PM) [facility]DR[facility] QRYHAD4801-69-03 21:17:00Negative *NA*(12/22/13 4:17 PM) [facility]annDR[facility] KDFPYA0442-74-86 21:17:00See Note 4*NA*(12/22/13 4:17 PM) [facility]DR[facility] QAQQYV9415-31-34 21:17:00Negative *NA*(12/22/13 4:17 PM) [facility]DR[facility] GSUWTV3992-30-14 21:17:00Negative *NA*(12/22/13 4:17 PM) [facility]DR[facility] TBTZGP9425-49-54 21:17:00Negative *NA*(12/22/13 4:17 PM) [facility]DR[facility] FQILRO1880-72-25 21:17:00Negative *NA*(12/22/13 4:17 PM) [facility]DR[facility] TUPCEJ0308-48-34 21:17:00Negative *NA*(12/22/13 4:17 PM) [facility] HqlpyslLYZWBPFECU5709-22-19 21:17:00 Test Item Value Reference Range Interpretation Comments PTT (test code = PTT) 35.2 s 22.9-35.8 [facility] HallfmtZFHGFLWFIH0755-45-22 21:17:00 Test Item Value Reference Range Interpretation Comments PT (test code = PT) 12.2 s 12.0-14.7 [facility] HygwthfGWOMQITTKY5167-62-52 21:17:000.91[facility] HermannHEMATOLOGY 2013-12-22 21:17:008.4[facility] PpsxslbDWIFASLQBF7348-31-43 21:17:00 Test Item Value Reference Range Interpretation Comments MCH (test code = MCH) 29.2 pg 27.0-31.0 [facility] PfzrefgVFVTKWVVHX7647-78-43 21:17:0033.4[facility] HermannHEMATOLOGY 2013-12-22 21:17:0014.5[facility] GudhcteRLIEHBKBAR2824-54-92 21:17:16416Lmbladan VgchusfFOZUJCUKNU3864-39-14 21:17:0041.6[facility] SwbqsakNHAFNLXPJJ7333-90-91 21:17:0087.5[facility] RmjxtijVDQLOWLSUH3625-12-43 21:17:004.76[facility] BAHCCUFTPJ1655-78-58 21:17:0013.9[facility] PgxolxsSXBSKDGWLC5834-28-43 21:17:00 8.5[facility] WdckhgxMRYEZXTFHV2341-89-94 21:17:000.2[facility]annHEMATOLOGY 2013-12-22 21:17:000.0[facility] IjizzlhDLIFMOVUXR7734-49-88 21:17:0066.1[facility] ObxieacNIXUKCIZES8198-95-76 21:17:006.1[facility] QsqnycaWCPKHITCLN6864-14-38 21:17:0025.0[facility] RrwqvizEDIUGCWHFN0174-74-58 21:17:002.4[facility] XKSGCUZHGG7256-79-49 21:17:000.4[facility] UuevrlcKHXGOKHYKS4450-44-32 21:17:002.1 [facility] QdhgnbaCFMDGUYZSZ4153-50-33 21:17:000.5[facility]annHEMATOLOGY 2013-12-22 21:17:005.6[facility]annURINE AND HSQCK7834-60-04 21:17:00Trace *ABN*(12/22/13 4:17 PM)[facility] GNUTW0990-54-78 21:17:00Negative *NA*(12/22/13 4:17 PM)[facility] GHIZL4563-27-84 21:17:000.2 [facility] NUSTV3721-33-92 21:17:00Small *ABN*(12/22/13 4:17 PM) [facility] XIPJG0805-40-25 21:17:00Negative *NA*(12/22/13 4:17 PM) [facility] EEOPQ0691-24-33 21:17:00Negative (12/22/13 4:17 PM) [facility] QCPRM4719-21-12 21:17:00Clear (12/22/13 4:17 PM) [facility] ZQZOG7342-58-60 21:17:00Yellow *NA*(12/22/13 4:17 PM) [facility] DIFWQ2371-72-27 21:17:00 Test Item Value Reference Range Interpretation Comments UA pH (test code = UA pH) 6.0 1 5.0-8.0 [facility] CYZMW1991-78-92 21:17:00 Test Item Value Reference Range Interpretation Comments UA Spec Grav (test code = UA Spec 1.015 1 Grav) [facility] QQROM9395-34-40 21:17:00Negative (12/22/13 4:17 PM) [facility] PTCOA9971-82-81 21:17:00Negative (12/22/13 4:17 PM) [facility]annCHEM KOGUE7676-32-74 15:55:312.7[facility]annCHEM PANEL 2013-12-17 15:55:312.2[facility] AdfzrenYGRUFAPWSULM4821-33-42 15:55:3110.5 [facility] DromwzoURATXPEEEKDQ2167-09-60 15:55:3191[facility] HermannELECTROLYTES 2013-12-17 15:55:3110[facility] QjitqhoJONKSAKSVHCM3217-38-17 15:55:310.8[facility] NllzsyhJRLNKRJGLUHD7993-79-09 15:55:57780Bgxcrybj RzdbqiaQWIJPRZNJYGH3264-41-71 15:55:3187[facility] UblgpnkKEAVUVCQHSVT2225-89-42 15:55:3130[facility] XBAKNZHJEYZF1098-77-92 15:55:314.5[facility] TwowdajFZTUEOMRZYEG8989-04-80 15:55:68699Htqmsfta PeytivzRDYKWFZDARHI7847-53-96 15:55:318.6[facility] KHMCJJUGFI9806-91-69 15:55:310.97[facility] XgxybuhPSSWDMKGWM6095-52-41 15:55:31 Test Item Value Reference Range Interpretation Comments PTT (test code = PTT) 32.4 s 22.9-35.8 [facility] EtsmgxoLZILFQRXBW1804-62-94 15:55:31 Test Item Value Reference Range Interpretation Comments PT (test code = PT) 12.8 s 12.0-14.7 [facility] VypmsqwDMSKASTBNO0673-43-43 15:55:3113.7[facility]annHEMATOLOGY 2013-12-17 15:55:314.88[facility] GjstpbiHVGQMXQGYI8093-28-99 15:55:31 Test Item Value Reference Range Interpretation Comments MCH (test code = MCH) 28.1 pg 27.0-31.0 [facility] FxliopkYIMVJBEDRH2093-64-08 15:55:3142.1[facility]annHEMATOLOGY 2013-12-17 15:55:3186.4[facility] QxxmtovWEGAPEXXTS6274-46-50 15:55:3114.3[facility] MdpodfwIJNLRMIPYT9193-11-22 15:55:3132.5[facility] KpsdlgjGXUDOELHIK2700-86-97 15:55:318.4[facility] SsllktpDXIMHFXMGW7066-38-73 15:55:48858Vjkkruph Maciej FFYHSWHZUI6370-94-11 15:55:317.2[facility] FldfwsoISMDOFDPIM6980-38-60 15:55:31 10.7[facility] RbevnhoATFZRUSBYE9093-40-55 15:55:3127.2[facility]annHEMATOLOGY 2013-12-17 15:55:311.9[facility] ZhglynxBUGGILPDEQ6987-32-59 15:55:313.2[facility] QejogetKBMKKAHKUG0494-09-86 15:55:310.6[facility] EojyvqeBUUHQJXGHF5891-85-97 15:55:314.2[facility] CpsfmsyDURAETDFIQ2819-40-21 15:55:310.2[facility] XRZLFKLVYE8469-80-08 15:55:310.8[facility] TtmxdspVMPBJDKBSK2345-72-15 15:55:31 58.3[facility] HermannPARATHYROID EXRSEXH1855-04-75 15:55:191.11[facility] PARATHYROID DPWPWFD0281-24-61 15:55:191.17[facility] HermannDRUG EGBKBU1430-85-89 03:45:57Negative *NA*(12/16/13 10:45 PM)[facility]annDRUG LTTQXM1458-18-18 03:45:57Positive *ABN*(12/16/13 10:45 PM)[facility]annDR[facility] WWATPZ1779-18-22 03:45:57Negative *NA*(12/16/13 10:45 PM)[facility]annDRUG SAIPHW0481-60-14 03:45:57Negative *NA*(12/16/13 10:45 PM)[facility]annDRUG JZFCXG6731-67-20 03:45:57Negative *NA*(12/16/13 10:45 PM)[facility]annDRUG IBIYYO9804-65-44 03:45:57See Note 6(12/16/13 10:45 PM)[facility]annDRUG VLWTQN5538-68-37 03:45:57Negative *NA*(12/16/13 10:45 PM)[facility]annDRUG NBWPQL9822-67-12 03:45:57Negative *NA*(12/16/13 10:45 PM)[facility]annCARDIAC MDXXZTQ8685-22-25 03:45:0056[facility] HermannCARDIAC EOECVNB9786-85-94 03:45:00<0.010[facility]annCARDIAC MSBYIDC0421-57-00 03:45:00<0.02[facility] HermannCARDIAC ENZYMES 2013-12-17 03:45:0013[facility] HvhvakcFRYBVG5430-59-59 03:45:0018[facility] FNMELQ4652-68-92 03:45:0088[facility] XscctpfTAPQYC4695-46-63 03:45:0088[facility] UypthpsNXQVVT9108-31-28 03:45:003.08[facility] LeyxcxbBOVGJC4315-77-00 03:45:18735 [facility] BmindzdXLJYJI3611-00-16 03:45:0051[facility] HermannSPECIAL CHEMISTRY 2013-12-17 03:45:005.3[facility] HermannTHYROID DRSOW7856-57-91 03:45:000.870 [facility]annCARDIAC HZMCYFG2028-67-08 22:09:0042[facility]annCARDIAC DJQTBTP6133-47-02 22:09:00<0.02[facility] HermannCHEM RLZSH6792-66-22 19:30:00 1.3[facility] YktyghbASTUFUPYVS9450-17-89 19:30:00 Test Item Value Reference Range Interpretation Comments PT (test code = PT) 11.8 s 12.0-14.7 [facility] XnadrksDLNQDUGSAW0955-51-82 19:30:000.87[facility]annHEMATOLOGY 2013-12-16 19:30:00 Test Item Value Reference Range Interpretation Comments PTT (test code = PTT) 31.2 s 22.9-35.8 [facility] DbopccxLOVPCMTQEO3931-73-33 19:30:004.69[facility] HermannHEMATOLOGY 2013-12-16 19:30:006.6[facility] OauhbogCWVAHAPAFB1672-67-67 19:30:0040.5[facility] UyhdcksXDONZSSTXO3810-51-25 19:30:0086.4[facility] RjpnlknSCCITNZYOE5502-23-14 19:30:0013.6[facility] QmvfkirIBENFFLNJU1962-83-65 19:30:00 Test Item Value Reference Range Interpretation Comments MCH (test code = MCH) 29.0 pg 27.0-31.0 [facility] NgptmafNPDSSSAMIX6095-14-79 19:30:0033.6[facility] HermannHEMATOLOGY 2013-12-16 19:30:31781Zapwrpcy TdgurhcPIXSHXKTKU4967-88-88 19:30:0013.4[facility] MmntnfcDPUTXNMOAT1174-07-05 19:30:008.6[facility] GaaukwrOSSGMWMLWS1646-92-74 19:30:000.8[facility] AkmkimqEHDLTLSZOG9117-16-80 19:30:000.0[facility] ALDDBDLSMS7963-12-45 19:30:0012.1[facility] MontoygBQJYJXAKJM3085-39-72 19:30:00 3.8[facility] TfiacniQGRBEVLOYU5784-89-42 19:30:000.6[facility] HermannHEMATOLOGY 2013-12-16 19:30:003.9[facility] ZbnjdffOOBARXUOBT7758-99-29 19:30:000.3[facility] RczobgqNCJIZDFKXF4868-58-78 19:30:001.6[facility] CtxjdovEOPCDVHLNR1106-76-59 19:30:0025.0[facility] LbjxtkjNXRHGPEMBJ7814-20-10 19:30:0058.5[facility] CHEM GINRA2581-50-97 17:43:2479[facility] HermannCHEM KTBDB9081-80-25 17:43:240.9 [facility] HermannCHEM BCDIZ3788-42-97 17:43:90580Ppkhstnt HermannCHEM PANEL 2013-12-16 17:43:244.5[facility] HermannCHEM QVVPQ9197-03-77 17:43:57449Eaneksrs HermannCHEM MDCML8845-43-51 17:43:2478[facility] HermannCHEM AGDGX7415-83-98 17:43:2411[facility] HermannCHEM LKLZZ6076-38-01 17:43:241.0[facility] HermannCHEM QYIZD3809-53-83 17:43:2412[facility] HermannCHEM UDXGQ2028-51-47 17:43:243.6 [facility]annCHEM PTBPH3525-78-31 17:43:2416.5[facility] HermannCHEM PANEL 2013-12-16 17:43:247.2[facility] HermannCHEM CAQXV7504-64-41 17:43:2419[facility] HermannCHEM JXXFI7596-18-04 17:43:2423[facility] HermannCHEM LTLWD0978-25-71 17:43:249.2[facility] HermannCHEM DWXKY6990-86-47 17:43:240.3[facility] HermannCHEM PGTDD8072-16-39 17:43:243.6[facility] HermannCHEM FTBZL3224-22-44 17:43:2487 [facility]annCHEM UIDIP3318-51-52 17:43:2431[facility] HermannCARDIAC ENZYMES 2013-12-16 17:43:0056[facility]annCARDIAC ONSHMZJ0928-80-94 17:43:00<0.02 [facility]annCARDIAC KQRVQDK4332-38-97 19:12:00<0.02[facility] CARDIAC SRDTBUA7035-28-27 19:12:0049[facility] HermannCARDIAC AVKFEKA8431-52-79 19:12:00<0.010[facility] IhnlvgfVKJZITWMX0492-18-58 19:12:0036[facility] CARDIAC OYLXHAN8968-95-23 12:35:00<0.010[facility] HermannCARDIAC ENZYMES 2013-11-08 12:35:0054[facility]annCARDIAC CXHLQUH8020-56-88 12:35:00<0.02 [facility]annCARDIAC MNOKOMR0552-54-17 08:36:00<0.02[facility] VAEAKVBNKRGS7734-13-03 08:36:0011.4[facility] XvtkdwyKDVLNONFRHAJ5842-41-95 08:36:0069[facility] NjmwyotYKFXPXOIRMIC4662-96-67 08:36:009.2[facility] ICBJNYMEUNRB9475-31-08 08:36:0027[facility] ToubuxqJQLMTKOFUWUO1972-24-31 08:36:00 105[facility] PsmmovdDZENZGTAKKLG8075-70-47 08:36:003.4[facility] RGHXMTVSMUZQ6249-68-44 08:36:51611Qldthaag MtdrcjfOPAYNZUFWNTR0016-24-59 08:36:0011[facility] OcatilgMGSRDGQBVVYN2101-42-66 08:36:0084[facility] IUERMCHDMWAA7084-63-30 08:36:001.0[facility] AydncydUYXLYGFQNO9429-47-51 08:36:00 0.1[facility] ZfxaodpGHWIGTTXMO7368-51-38 08:36:000.2[facility] HermannHEMATOLOGY 2013-11-08 08:36:000.8[facility] SbvjttyGSTZBFUBLD1378-07-37 08:36:0072.5[facility] SyfbmkgXYSFJGLYEL0529-84-77 08:36:0017.0[facility] RopcxmuRZYJGTMVJX6192-52-20 08:36:002.1[facility] UiqwhvaUEKGLBOGIS3083-85-77 08:36:007.8[facility] ZHMGYDCGSA4120-00-47 08:36:007.6[facility] QfmnvuvXXBYPQPCSP5986-01-92 08:36:000.6 [facility] KlgoxdlFNKYUGCVYM1083-41-18 08:36:001.8[facility] HermannHEMATOLOGY 2013-11-08 08:36:008.7[facility] OuoozojDDJXPTJWJW1709-57-36 08:36:0014.0[facility] MfyelkeHSPSGOHQHR0053-84-31 08:36:81835Ksszwsvr RxrlryrBVLBBULJQQ0913-61-07 08:36:0033.9[facility] ZsdjrwnUZEAMLTSCQ2909-87-24 08:36:004.65[facility] MKQOAKESGV6366-61-23 08:36:0010.6[facility] AylbnuvGCMKZVHTUW2474-61-16 08:36:00 Test Item Value Reference Range Interpretation Comments MCH (test code = MCH) 29.3 pg 27.0-31.0 [facility] AfgwabqZCXIWOLVPQ4217-42-27 08:36:0086.6[facility] HermannHEMATOLOGY 2013-11-08 08:36:0013.6[facility] YcxjrpgGPHXQBXWOK9029-50-75 08:36:0040.2[facility]
[2020-09-17] MEDS ORDERED: FENTANYL CITR 100 MCG/2 ML ONE (17:38)
[2020-09-17] MEDS ORDERED: NA CHLORIDE 0.9% 250 ML ONE (17:38)
[2020-09-17 17:41] LABS: Absolute Lymphocytes (CBC) 1.9 K/uL (0.7-4.9); Basophils % 1.2 % (0-1.3); Hematocrit 40.3 % (36.0-45.0); Lymphocytes % 35.3 % (15.3-44.8); MPV 8.6 fL (7.6-11.3)
[2020-09-17 18:02] LABS: Urine Blood NEGATIVE (NEG); Urine Glucose NEGATIVE (NEG); Urine Protein NEGATIVE (NEG); Urine Specific Gravity <1.005 (1.005-1.030)
[2020-09-17 18:15] LABS: Urine Bacteria <20 /HPF (<20); Urine RBC NONE SEEN /HPF (NONE SEEN)
--- NOTE | 2020-09-17 21:05 | RAD REPORT ---
EXAM DESCRIPTION: CTAbdomen Pelvis W Contrast - 09/17/2020 8:53 pm CLINICAL HISTORY: Abdominal pain. left side abdomen pain COMPARISON: Abdomen Pelvis W Contrast dated 08/20/2020; Abdomen Pelvis W Contrast dated 06/24/20; CT ABD PELVIS W CONTRAST dated 01/26/2015; CT ABD PELVIS W CONTRAST dated 12/20/2014 TECHNIQUE: Biphasic CT imaging of the abdomen and pelvis was performed with 100 ml non-ionic IV cont rast. All CT scans are performed using dose optimization technique as appropriate and may include automated exposure control or mA/KV adjustment according to patient size. FINDINGS: Mild subsegmental atelectasis in both lung bases. The liver, spleen, pancreas, adrenal glands are within normal limits. Small stones are present in bot h kidneys without hydronephrosis. Aortic atherosclerosis. No bowel obstruction, free air, free fluid or abscess. Significant stool is present throughout the co [place]. The appendix is normal. No evidence of significant lymphadenopathy. Postsurgical changes are present in lower lumbar spine with hardware in place. Enlarged multi fibroid uterus with dystrophic calcifications. IMPRESSION: Bilateral nephrolithiasis without hydronephrosis. Enlarged multi fibroid uterus. Moderate stool retained throughout the colon. Heavy aortoiliac atherosclerosis.
--- NOTE | 2020-09-17 21:37 | ER ---
Nurse's Notes [facility] Name: Winsome Yepez Age: 70 yrs Sex: Female : 1950 Arrival Date: 09/17/2020 Time: 16:36 Bed 15 Private MD: Diagnosis: Unspecified abdominal pain;Low back pain;Leiomyoma of uterus, unspecified;Calculus of kidney Presentation: 09/17 16:36 Chief complaint: EMS states: Left side ABD pain for about a month. Coronavirus screen: vg1 Client denies travel out of the [place] in the last 14 days. Ebola Screen: Patient negative for fever greater than or equal to 101.5 degrees Fahrenheit, and additional compatible Ebola Virus Disease symptoms. Initial Sepsis Screen: Does the patient meet any 2 criteria? No. Patient's initial sepsis screen is negative. Does the patient have a suspected source of infection? No. Patient's initial sepsis screen is negative. Risk Assessment: Do you want to hurt yourself or someone else? Patient reports no desire to harm self or others. Onset of symptoms was August 17, 2020. 16:36 Method Of Arrival: EMS: [facility] vg1 16:36 Acuity: CYNTHIA 3 vg1 Historical: - Allergies: 16:38 PENICILLINS; vg1 - PMHx: 16:38 Asthma; High Cholesterol; Hypertension; Myocardial infarction; Sickle Cell; vg1 - Immunization history:: Adult Immunizations up to date, Flu vaccine is not up to date. - Social history:: Smoking status: Patient reports the use of cigarette tobacco products, smokes one pack cigarettes per day. Screenin:39 Abuse screen: Denies threats or abuse. Nutritional screening: No deficits noted. vg1 Tuberculosis screening: No symptoms or risk factors identified. Fall Risk No fall in past 12 months (0 pts). No secondary diagnosis (0 pts). IV access (20 points). Ambulatory Aid- Crutches/Cane/Walker (15 pts). Gait- Normal/Bed Rest/Wheelchair (0 pts) Mental Status- Oriented to own ability (0 pts). Total Blake Fall Scale indicates Low Risk Score (25-44 pts). Fall prevention measures have been instituted. Side Rails Up X 2. Assessment: 16:38 General: Appears in no apparent distress. comfortable, Behavior is calm, cooperative. vg1 Pain: Complains of pain in left upper quadrant and left lower quadrant and left side of back. Pain currently is 10 out of 10 on a pain scale. Neuro: Level of Consciousness is awake, alert, obeys commands, Oriented to person, place, time, situation. Cardiovascular: Patient's skin is warm and dry. Respiratory: Airway is patent Respiratory effort is even, unlabored, Respiratory pattern is regular, symmetrical. GI: Bowel sounds present X 4 quads. Abd is soft X 4 quads Abdomen is tender to palpation in left upper quadrant and left lower quadrant. : No signs and/or symptoms were reported regarding the genitourinary system. EENT: No signs and/or symptoms were reported regarding the EENT system. Derm: Skin is intact, is healthy with good turgor. Musculoskeletal: Circulation, motion, and sensation intact. 18:46 Reassessment: Patient appears in no apparent distress at this time. Patient and/or vg1 family updated on plan of care and expected duration. Pain level reassessed. Patient is alert, oriented x 3, equal unlabored respirations, skin warm/dry/pink. Patient denies pain at this time. Patient states feeling better. 19:58 Reassessment: Patient appears in no apparent distress at this time. Patient and/or vg1 family updated on plan of care and expected duration. Pain level reassessed. Patient is alert, oriented x 3, equal unlabored respirations, skin warm/dry/pink. Patient denies pain at this time. Patient states feeling better. 21:24 Reassessment: No changes from previously documented assessment. vg1 21:52 Reassessment: PO challenge completed; tolerated well. vg1 22:05 Reassessment: Patient up for d/c, awaiting for Taxi to arrive. vg1 22:07 Reassessment: Called taxi service, stated will be here to knot picker cloth patient in about 20 vg1 min. Vital Signs: 16:36 BP 109 / 82; Pulse 86; Resp 16; Temp 98.1(O); Pulse Ox 97% on R/A; Weight 45.36 kg; vg1 Height 5 ft. 0 in. (152.40 cm); Pain 10/10; 18:30 BP 104 / 64; Pulse 67; Resp 16; Pulse Ox 98% on R/A; vg1 19:00 BP 110 / 68; Pulse 82; Resp 16; Pulse Ox 100% on R/A; vg1 20:00 BP 104 / 70; Pulse 75; Resp 16; Pulse Ox 97% on R/A; vg1 21:00 BP 110 / 64; Pulse 70; Resp 16; Pulse Ox 99% on R/A; vg1 16:36 Body Mass Index 19.53 (45.36 kg, 152.40 cm) vg1 ED Course: 16:36 Patient arrived in ED. vg1 16:38 Triage completed. vg1 16:40 Patient has correct armband on for positive identification. Bed in low position. Call vg1 light in reach. Side rails up X 1. 16:40 Arm band placed on. vg1 16:49 Mark Campoverde PA is PHCP. cp 16:49 Julio Garcia MD is Attending Physician. cp 16:50 Bhargavi Jennings RN is Primary Nurse. vg1 18:00 Inserted saline lock: 22 gauge in left forearm, using aseptic technique. ss 20:[address] via stretcher. vg1 20:54 CT Abd/Pelvis - IV Contrast Only In Process Unspecified. EDMS 21:00 Patient moved back from CT. vg1 22:29 No provider procedures requiring assistance completed. IV discontinued, intact, vg1 bleeding controlled, No redness/swelling at site. Pressure dressing applied. Administered Medications: 18:03 Drug: fentaNYL (PF) 25 mcg {Note: rass 0.} Route: IVP; Site: left forearm; vg1 19:57 Follow up: Response: Pain is decreased; RASS: Alert and Calm (0) vg1 18:03 Drug: NS 0.9% 250 ml Route: IV; Rate: calculated rate; Site: left forearm; vg1 18:30 Follow up: IV Status: Completed infusion; IV Intake: 250ml vg1 Intake: 18:30 IV: 250ml; Total: 250ml. vg1 Outcome: 21:36 Discharge ordered by . cp 22:29 Discharged to home via wheelchair. vg1 22:29 Condition: stable 22:29 Discharge instructions given to patient, Instructed on discharge instructions, follow up and referral plans. medication usage, Demonstrated understanding of instructions, follow-up care, medications, Prescriptions given X 2. 22:30 Patient left the ED. vg1 Signatures: Dispatcher [employer] EDRI Kaylan Kebede, RN RN ss Mark Campoverde PA PA cp Garcia, Victoria, RN RN vg1 Corrections: (The following items were deleted from the chart) 22: 22:29 Discharged to home ambulatory, vg1 vg1 : 22:29 Discharge instructions given to patient, Instructed on discharge instructions, vg1 follow up and referral plans. medication usage, Demonstrated understanding of instructions, follow-up care, medications, Prescriptions given X 2, vg1
--- NOTE | 2020-09-17 21:38 | EDPHYS ---
Physician Documentation [facility] Name: Winsome Yepez Age: 70 yrs Sex: Female : 1950 Arrival Date: 09/17/2020 Time: 16:36 Bed 15 Private MD: ED Physician Julio Garcia HPI: 09/17 17:05 This 70 yrs old Black Female presents to ER via EMS with complaints of Abdominal Pain. cp 17:05 The patient presents with abdominal pain in the left upper quadrant, in the left lower cp quadrant. 17:05 Onset: The symptoms/episode began/occurred 1 month(s) ago, and became worse yesterday. cp Associated signs and symptoms: Pertinent positives: constipation, low back pain, Pertinent negatives: blood in stools, chest pain, diarrhea, dysuria, fever, vomiting. Historical: - Allergies: 16:38 PENICILLINS; vg1 - PMHx: 16:38 Asthma; High Cholesterol; Hypertension; Myocardial infarction; Sickle Cell; vg1 - Immunization history:: Adult Immunizations up to date, Flu vaccine is not up to date. - Social history:: Smoking status: Patient reports the use of cigarette tobacco products, smokes one pack cigarettes per day. ROS: 17:10 Abdomen/GI: Positive for abdominal pain, of the left upper quadrant and left lower cp quadrant, Negative for vomiting, diarrhea, constipation, anorexia. 17:10 Eyes: Negative for injury, pain, redness, and discharge. cp 17:10 Constitutional: Negative for body aches, chills, fever, poor PO intake. 17:10 Cardiovascular: Negative for chest pain, edema, palpitations. 17:10 Respiratory: Negative for cough, shortness of breath, wheezing. 17:10 Back: Positive for pain at rest, pain with movement, of the low back area. 17:10 : Negative for urinary symptoms, pelvic pain. 17:10 Neuro: Negative for altered mental status, headache, weakness. 17:10 All other systems are negative. Exam: 17:15 Constitutional: The patient appears in no acute distress, alert, awake, non-toxic, well cp developed, well nourished, uncomfortable. 17:15 Head/Face: Normocephalic, atraumatic. cp 17:15 Eyes: Periorbital structures: appear normal, Conjunctiva: normal, no exudate, no injection, Sclera: no appreciated abnormality, Lids and lashes: appear normal, bilaterally. 17:15 ENT: External ear(s): are unremarkable, Nose: is normal, Mouth: Lips: moist, Oral mucosa: moist, Posterior pharynx: Airway: no evidence of obstruction, patent. 17:15 Chest/axilla: Inspection: normal, Palpation: is normal, no crepitus, no tenderness. 17:15 Cardiovascular: Rate: normal, Rhythm: regular. 17:15 Respiratory: the patient does not display signs of respiratory distress, Respirations: normal, no use of accessory muscles, no retractions, labored breathing, is not present, Breath sounds: are clear throughout, no decreased breath sounds, no stridor, no wheezing. 17:15 Abdomen/GI: Inspection: abdomen appears normal, Bowel sounds: active, all quadrants, Palpation: soft, in all quadrants, moderate abdominal tenderness, in the left upper quadrant and left lower quadrant, rebound tenderness, is not appreciated, involuntary guarding, is not appreciated. 17:15 Back: pain, that is moderate, of the low back area, ROM is painful, with all movement. cp 17:15 Neuro: Orientation: to person, place \T\ time. Mentation: is normal, Motor: moves all fours, strength is normal, Sensation: is normal. Vital Signs: 16:36 BP 109 / 82; Pulse 86; Resp 16; Temp 98.1(O); Pulse Ox 97% on R/A; Weight 45.36 kg; vg1 Height 5 ft. 0 in. (152.40 cm); Pain 10/10; 18:30 BP 104 / 64; Pulse 67; Resp 16; Pulse Ox 98% on R/A; vg1 19:00 BP 110 / 68; Pulse 82; Resp 16; Pulse Ox 100% on R/A; vg1 20:00 BP 104 / 70; Pulse 75; Resp 16; Pulse Ox 97% on R/A; vg1 21:00 BP 110 / 64; Pulse 70; Resp 16; Pulse Ox 99% on R/A; vg1 16:36 Body Mass Index 19.53 (45.36 kg, 152.40 cm) vg1 MDM: 16:50 Patient medically screened. cp 17:00 Differential diagnosis: bowel obstruction, gastritis, non-specific abd pain, cp Pyelonephritis, Ureterolithiasis, urinary tract infection. 21:35 Data reviewed: vital signs, nurses notes, lab test result(s), radiologic studies, CT cp scan, and as a result, I will discharge patient. 21:35 Counseling: I had a detailed discussion with the patient and/or guardian regarding: the cp historical points, exam findings, and any diagnostic results supporting the discharge/admit diagnosis, lab results, radiology results, to return to the emergency department if symptoms worsen or persist or if there are any questions or concerns that arise at home. Response to treatment: the patient's symptoms have markedly improved after treatment. Special discussion: Based on the patient's Hx, exam, and Dx evaluation, there is no indication for emergent surgery or inpatient Tx. It is understood by the patient/guardian that if the Sx's persist or worsen they need to return immediately for re-evaluation. 09/17 16:50 Order name: CBC with Diff; Complete Time: 18:15 cp 09/17 16:50 Order name: Urine Microscopic Only; Complete Time: 19:31 cp 09/17 17:25 Order name: Urine Dipstick--Ancillary (enter results); Complete Time: 18:15 sp 09/17 16:50 Order name: IV Saline Lock; Complete Time: 18:04 cp 09/17 16:50 Order name: Labs collected and sent; Complete Time: 18:04 cp 09/17 16:50 Order name: Urine Dipstick-Ancillary (obtain specimen); Complete Time: 17:25 cp 09/17 18:15 Order name: CT Abd/Pelvis - IV Contrast Only; Complete Time: 21:18 cp 09/17 21:19 Order name: PO challenge; Complete Time: 21:52 cp Administered Medications: 18:03 Drug: fentaNYL (PF) 25 mcg {Note: rass 0.} Route: IVP; Site: left forearm; vg1 19:57 Follow up: Response: Pain is decreased; RASS: Alert and Calm (0) vg1 18:03 Drug: NS 0.9% 250 ml Route: IV; Rate: calculated rate; Site: left forearm; vg1 18:30 Follow up: IV Status: Completed infusion; IV Intake: 250ml vg1 Disposition: 09/17/20 21:36 Discharged to Home. Impression: Unspecified abdominal pain, Low back pain, Leiomyoma of uterus, unspecified, Calculus of kidney. - Condition is Stable. - Discharge Instructions: Abdominal Pain, Adult, Back Pain, Adult, Constipation, Adult, Uterine Fibroids, Kidney Stones, Back Exercises. - Prescriptions for Lidoderm 5 % Topical adhesive patch,medicated - apply 1 patch by TRANSDERMAL route once daily apply as directed to painful areas of back; 1 box. Mobic 7.5 mg Oral Tablet - take 1 tablet by ORAL route once daily take with food; 20 tablet. - Medication Reconciliation Form, Thank You Letter, Antibiotic Education, Prescription Opioid Use form. - Follow up: Private Physician; When: 1 - 2 days; Reason: Recheck today's complaints. - Problem is an ongoing problem. - Symptoms have improved. Addendum: 09/20/2020 10:07 Co-signature as Attending Physician, Julio Garcia MD. r n Signatures: Dispatcher [employer] EDMS Julio Garcia MD MD rn Mark Campoverde PA PA cp Garcia, Victoria RN RN vg1 Corrections: (The following items were deleted from the chart) 09/17 21:39 21:36 09/17/2020 21:36 Discharged to Home. Impression: Unspecified abdominal pain; Low cp back pain. Condition is Stable. Forms are Medication Reconciliation Form, Thank You Letter, Antibiotic Education, Prescription Opioid Use. Follow up: Private Physician; When: 1 - 2 days; Reason: Recheck today's complaints. Problem is an ongoing problem. Symptoms have improved. cp 22:30 21:39 09/17/2020 21:36 Discharged to Home. Impression: Unspecified abdominal pain; Low vg1 back pain; Leiomyoma of uterus, unspecified; Calculus of kidney. Condition is Stable. Discharge Instructions: Abdominal Pain, Adult, Back Pain, Adult, Back Exercises. Prescriptions for Lidoderm 5 % Topical adhesive patch,medicated - apply 1 patch by TRANSDERMAL route once daily apply as directed to painful areas of back; 1 box, Mobic 7.5 mg Oral Tablet - take 1 tablet by ORAL route once daily take with food; 20 tablet. and Forms are Medication Reconciliation Form, Thank You Letter, Antibiotic Education, Prescription Opioid Use. Follow up: Private Physician; When: 1 - 2 days; Reason: Recheck today's complaints. Problem is an ongoing problem. Symptoms have improved. cp
[2020-09-17 22:46] VITALS: TEMP 98.1
[2020-09-17 22:51] VITALS: BP 110/64; O2SAT 99
== END 2020-09-17 22:30 | disposition home or self-care (01) ==
LOC: ER 16:17
DX: N20.0 Calculus of kidney (principal); M54.5 Low back pain; I10 Essential (primary) hypertension; I25.2 Old myocardial infarction; F17.210 Nicotine dependence, cigarettes, uncomplicated; Z88.0 Allergy status to penicillin
CPT/HCPCS: 85025; 74177; Q9967; J3010; J7050; 81003; 81015; 82565; 96365; 96375; 99284

== ENCOUNTER 2020-10-22 18:44 | Emergency (ER) | payer OTHER ==
--- OUTSIDE RECORDS SUMMARY | 2020-10-22 19:04 | XMS REPORT | Continuity of Care Document ---
:1950 Author Organization [facility] t Address [address] [place] [address] Care Team Providers Name Role Phone UNKNOWN Primary Care Physician Unavailable Kane Ryan MD Attending Clinician Varun Patel Attending Clinician Lida Stratton Attending [...] 2017-01-16 Memoria 5-21 20:56:00 l CHEST 00:00: [place] PAIN 00 [facility]/16[facility] [place] PAIN Diagnosis Active 2016-11-28 Mem oria 4-02 20:00:00 l PAIN 00:00: Maciej 00 [facility]28[facility] F[facility] Diagnosis Active 2016-11-06 Mem oria SWELLING 3-11 18:35:00 l FACIAL 00:00: Maciej SWELLING 00 Active 11/06/2016 [facility] SYNCOPE Diagnosis Active 2017-02-18 Me moria 2-12 10:16:00 l SYNCOPE 00:00: Maciej 00 Active 10/10/2016 [facility] SICK Diagnosis Active 2017-0 2016-10-10 Mem oria 2-12 20:58:00 l SICK 00:00: Maciej 00 Active 10/10/2016 [facility] CHEST Diagnosis Active 2016-03-12 Mem oria PAIN, 7-14 12:26:00 l HYPOTENSIO CHEST 00:00: Caroline nn N PAIN, 00 HYPOTENSIO N Active 03/11/2016 [facility] SOB Diagnosis Active 2016-03-11 Mem oria 7-14 15:11:00 l SOB 00:00: [place] 00 Active 03/11/2016 [facility] BACK PAIN Diagnosis Active 2016-10-12 Memoria 1-17 14:26:00 l BACK 00:00: [place] PAIN 00 Active 09/14/2015 [facility] COPD, Diagnosis Active 2015-09-05 Mem oria CHEST PAIN 09-03 15:21:00 l COPD, 00:00: [place] CHEST PAIN 00 Active 09/03/[address] [facility] HEADACHE Diagnosis Active 2014-082015-07-15 M emoria 09-14 17:17:00 l HEADACHE 00:00: Kristopher n 00 Active 07/15/2015 [facility] SOB/ Diagnosis Active 2014-082015-07-05 Mem oria WEAKNESS 09-03 01:33:00 l SOB/ 22:00: [place] WEAKNESS 00 Active 07/04/[address] [facility] LOWER BACK Diagnosis Active 2014-082015-07-11 Memoria AND LEG 1 13:07:00 l PAIN LOWER 00:00: Maciej BACK AND 00 LEG PAIN Active 07/04/2015 [facility] SHORTNESS Diagnosis Active 2014-082015-06-04 Memoria OF BREATH 0-06 01:54:00 l 19:00: Maciej SHORTNESS 00 OF BREATH Active 06/03/[address] [facility] NAUSEA Diagnosis Active 2015-05-20 Mem oria 05-18 07:49:00 l NAUSEA 00:00: [place] 00 Active 05/18/2015 [facility] FALL Diagnosis Active 2015-05-02 Mem oria 05-02 16:55:00 l FALL 00:00: [place] 00 Active 05/02/2015 [facility] NECK AND Diagnosis Active 2015-03-30 M emoria SHOULDER 03-30 16:35:00 l PAIN NECK AND 00:00: Kristopher n SHOULDER 00 PAIN Active 03/30/[address] [facility] SOB/CHEST Diagnosis Active 2015-03-21 Memoria PAIN 03-21 15:46:00 l 00:00: Maciej SOB/CHEST 00 PAIN Active 03/21/[address] [facility] HYPOTENSIO Diagnosis Active 2015-03-31 Memoria N, CHEST 03-21 11:41:00 l PAIN 00:00: Maciej HYPOTENSIO 00 N, CHEST PAIN Active 03/21/[address] [facility] LOWER BACK Diagnosis Active 2015-03-11 Memoria PAIN 03-11 15:56:00 l LOWER 00:00: [place] BACK PAIN 00 Active 03/11/[address] [facility] UPPER BACK Diagnosis Active 2015-02-24 Memoria PAIN 02-24 15:44:00 l UPPER 00:00: [place] BACK PAIN 00 Active 02/24/[address] [facility] ACUTE Diagnosis Active 2015-02-26 Mem oria CHEST PAIN 02-24 09:02:00 l ACUTE 00:00: Maciej CHEST PAIN 00 Active 02/24/[address] [facility] UNSTABLE Diagnosis Active 2015-02-19 M emoria ANGINA; 02-16 13:44:00 l HYPOTENSIO UNSTABLE 00:00: He rmann N ANGINA; 00 HYPOTENSIO N Active 02/16/[address] [facility] CHEST/LEG Diagnosis Active 2013-12-22 Memoria PAIN 12-22 18:23:00 l 00:00: Maciej CHEST/LEG 00 PAIN Active 12/22/[address] [facility] OTHER Diagnosis Active 2013-12-16 Mem oria 4-20 20:50:00 l OTHER 00:00: Maciej 00 Active 12/16/2013 [facility] ACS Diagnosis Active 2013-12-18 Mem oria 4- 15:44:00 l ACS 00:00: Maciej 00 Active 12/16/2013 [facility] Stented Problem Resolve 2017-01-22 Mem oria coronary d 04:26:21 l artery Stented [place] (finding) coronary artery (finding) Resolved Problem 01/22/2017 [facility], Jacek Solo [facility] Asthma Problem Active 2017-01-22 Memor ia (disorder) 04:26:21 l Asthma Maciej (disorder) Active Problem 01/22/2017 [facility], [facility] Cardiac Problem Active 2017-01-22 Eleazar hilton chest pain 04:26:21 l (finding) Cardiac Herm sho chest pain (finding) Active Problem 01/22/2017 [facility], [facility] Hypertensi Problem Active 2017-01-22 M emoria ve 04:26:21 l disorder, Maciej systemic Hypertensi arterial ve (disorder) disorder, systemic arterial (disorder) Active Problem 01/22/2017 [facility], [facility] Hyperlipid Problem Active 2017-01-22 M emoria emia 04:26:21 l (disorder) Kristopher n Hyperlipid emia (disorder) Active Problem 01/22/2017 [facility], [facility] Myocardial Problem Active 2017-01-22 M emoria infarction 04:26:21 l (disorder) Kristopher n Myocardial infarction (disorder) Active Problem 01/22/2017 [facility], [facility] Smoking Problem Active 2017-01-22 Eleazar hilton cessation 04:26:21 l advice Smoking [place] (regime/th cessation erapy) advice (regime/th erapy) Active Problem 01/22/2017 [facility], [facility] Substance Problem Active 2017-01-22 Me moria abuse 04:26:21 l (disorder) Kristopher n Substance abuse (disorder) Active Problem 01/22/2017 [facility] Tissue Problem Active 2017-01-22 Memor ia perfusion 04:26:21 l measure Tissue [place] (observabl perfusion e entity) measure (observabl e entity) Active Problem 01/22/2017 [facility], [facility] Heart Problem Active 2013-12-28 Memor ia disease 01:02:24 l (disorder) Heart Caroline nn disease (disorder) Active Problem 12/28/2013 [facility] INTERMED Diagnosis Active 2013-12-18 M emoria CORONARY 15:44:00 l SYND INTERMED Kristopher n CORONARY SYND Active [facility] ANGINA Diagnosis Active 2015-02-19 Mem oria DECUBITUS 13:44:00 l ANGINA Maciej DECUBITUS Active [facility] HYPOTENSIO Diagnosis Active 2015-03-31 Memoria N NOS 11:41:00 l [place] HYPOTENSIO N NOS Active [facility] SYNCOPE Diagnosis Active 2017-02-18 Me moria AND 10:16:00 l COLLAPSE SYNCOPE Caroline nn AND COLLAPSE Active [facility] History of Past Illness Condition Condition Condition Status Onset Resolution Last Treating Co mments Source Name Details Category Date Date Treatment Clinician Date Chest Problem 2017-01-19 2017-01-19 M emoria pain, 01-16 00:39:08 00:39:08 l unspecifie Chest 05:00: Caroline nn d pain, 00 unspecifie d 01/16/2017 01/19/2017 [facility] Urinary Problem [...] Discharge 00 Diagnosis: Syncope, near 04/14/2016 04/17/2016 [facility] Discharge Problem 2016-03-08 2016-03-08 Memoria Diagnosis: 03-05 04:59:23 04:59:23 l Trichomona 05:00: Kristopher n s Discharge 00 vaginitis Diagnosis: Trichomona s vaginitis 03/05/2016 03/08/2016 [facility] Discharge Problem 2015-2016-03-08 2016-03-08 Memoria Diagnosis: 03-05 04:59:23 04:59:23 l Lumbago 05:00: Maciej Discharge 00 Diagnosis: Lumbago 03/05/2016 03/08/2016 [facility] Discharge Problem 2015-2016-03-03 2016-03-03 Memoria Diagnosis: 02-28 00:43:25 00:43:25 l Bronchitis 05:00: Kristopher n Discharge 00 Diagnosis: Bronchitis 02/29/2016 03/03/2016 [facility] Discharge Problem 2015-05-21 2015-05-21 Memoria Diagnosis: 05-18 01:04:08 01:04:08 l Abdominal 05:00: Maciej pain, Discharge 00 acute, Diagnosis: epigastric Abdominal pain, acute, epigastric 05/18/2015 05/21/2015 [facility] Discharge Problem 2015-05-12 2015-05-12 Memoria Diagnosis: 05-09 07:40:44 07:40:44 l Chest pain 05:00: Kristopher n Discharge 00 Diagnosis: Chest pain 05/09/2015 05/12/2015 [facility] Discharge Problem 2015-05-05 2015-05-05 Memoria Diagnosis: 05-02 10:45:36 10:45:36 l Vertigo 05:00: Maciej Discharge 00 Diagnosis: Vertigo 05/02/2015 05/05/2015 [facility] Discharge Problem 2015-05-05 2015-05-05 Memoria Diagnosis: 05-02 10:45:36 10:45:36 l Syncope 05:00: [place] and Discharge 00 collapse Diagnosis: Syncope and collapse 5 05/05/2015 [facility] Discharge Problem 2015-04-14 2015-04-14 Memoria Diagnosis: 04-11 05:25:30 05:25:30 l Knee pain, 05:00: Kristopher n right Discharge 00 Diagnosis: Knee pain, right 04/11/2015 04/14/[address] [facility] Discharge Problem 2015-04-14 2015-04-14 Memoria Diagnosis: 04-11 05:25:30 05:25:30 l Lumbar 05:00: Maciej spondylosi Discharge 00 s Diagnosis: Lumbar spondylosi s 04/11/2015 04/14/[address] [facility] Discharge Problem 2015-04-14 2015-04-14 Memoria Diagnosis: 04-11 05:25:30 05:25:30 l Anterolist 05:00: Kristopher n hesis Discharge 00 Diagnosis: Anterolist hesis 04/11/2015 04/14/[address] [facility] Discharge Problem 2015-04-14 2015-04-14 Memoria Diagnosis: 04-11 05:25:30 05:25:30 l Accidental 05:00: Kristopher n fall Discharge 00 Diagnosis: Accidental fall 04/11/2015 04/14/[address] [facility] Discharge Problem 2015-04-02 2015-04-02 Memoria Diagnosis: 03-30 00:46:48 00:46:48 l Chronic 05:00: Maciej pain in Discharge 00 right Diagnosis: shoulder Chronic pain in right shoulder 5 04/02/[address] [facility] Discharge Problem 2015-03-14 2015-03-14 Memoria Diagnosis: 03-11 09:47:20 09:47:20 l Chest wall 05:00: Kristopher n muscle Discharge 00 strain Diagnosis: Chest wall muscle strain 03/11/2015 03/14/[address] [facility] Discharge Problem 2015-03-08 2015-03-08 Memoria Diagnosis: 03-05 04:07:57 04:07:57 l Dyspnea 05:00: [place] Discharge 00 Diagnosis: Dyspnea 03/05/2015 03/08/2015 [facility] Allergies, Adverse Reactions, Alerts Allergy Allergy Status Severity Reaction(s) Onset Inactive Treating Comm ents Source Name Type Date Date Clinician Penicill Propensi Active Justin ins ty to 07 Health adverse 00:00: reaction 00 s to drug penicill penicill Active Pari a ins ins l [place] Social History Social Habit Start Date Stop Date Quantity Comments Source Sex Assigned At [facility] Social History 2016-10-10 2016-10-10 Cinthia murray 18:40:19 18:40:19 Medications Ordered Filled Start Stop Current Ordering Indication Dosage Frequency Signature Comments Components Source Medication Medication Date Date Medication? Clinician (SIG) Name Name metoprolol Yes Other chest 25mg Q.5D Take 1 Anderson tartrate 7-11 pain tablet by [facility] (LOPRESSOR) 00:00: mouth 2 25 mg 00 times tablet daily. naproxen Yes Chronic 375mg Take 1 Cam ris (NAPROSYN) 7-11 bilateral tablet by [facility] 375 mg 00:00: low back mouth 2 tablet 00 pain, with times sciatica daily as presence needed (as unspecified needed for pain). Sodium No 1,000 mL, Memori a Chloride 5-24 2,000 l 0.154 18:00: ml/hr, [place] MEQ/ML 00 Infuse Injectable Over: 30 Solution minutes, Route: IV, ONCE, Priority: STAT, Dosing Weight 45.455 kg, Start date: 01/19/17 13:00:00 CDT, Duration: 1 doses or times, Stop date: 01/19/17 13:00:00 CDT Famotidine No 20 mg, Memor ia 5-24 [...] CDT Saline No Notes: Memoria Flush 0.9% -24 (Same as: l 18:00: BD Posiflush) clopidogrel No Notes: Eleazar hilton 5-22 (Same [...] BID, # l 01:43: 14 cap, 0 Refill(s) meclizine Yes 25 mg = 1 Mem oria 25 mg oral 5-22 tab, PO, l tablet 01:43: TID, PRN [place] 00 for dizziness, # 60 tab, 0 Refill(s) Morphine No Notes: Memoria 5-21 (Same l 23:57: as:MORPhin e Sulfate) Ondansetron No Notes: Eleazar hilton 5-21 (Same as: l 23:57: Zofran) MEDICATION WASTE Product Size: 4 mg Product Wasted: _0__ mg Aspirin No Notes: Memoria 5-21 Take with l 23:57: food. Saline No Notes: Memoria Flush 0.9% 5-21 Same as: l 23:41: BD Posiflush Sterile 200 ACTUAT Yes 2 puff, Eleazar hilton Albuterol 4-03 INHALATION l 0.09 03:43: , Q4H, PRN [...] oria - to exceed l 03:02: 400mg/day. [place] 00 (Same As: Ultram) Albuterol No Notes: Memori a 0.833 MG/ML -03 (Same as: l / 00:23: Duoneb) Maciej Ipratropium 00 [place] 0.167 MG/ML Inhalant Solution [DuoNeb] Saline No Notes: Memoria Flush 0.9% -03 preservati l 00:23: ve free. Maciej 00 Mupirocin Yes 1 appl, Memor ia 0.02 MG/MG 3-12 TOP, TID, l Topical 02:49: PRN as Maciej Ointment 00 needed, [Bactroban] Apply to affected area(s), X 14 day, # 60 gm, 0 Refill(s) Saline No Notes: Memoria Flush 0.9% 3-12 (Same as: l 00:51: BD Maciej 00 Posiflush) atorvastati No Notes: Eleazar hilton n 2-14 Same as l 03:00: Lipitor [place] 00 remove No Notes: Memoria patch 2-14 Remove l 03:00: patch 12 [place] 00 hours after applicatio n each day. metoprolol No Notes: Memor ia tartrate 2-13 (Same as: l 15:00: Lopressor) Maciej 00 12.5 mg=1/2 X 50 mg TAB heparin No Notes: Memoria sodium, 2-13 porcine l porcine 15:00: heparin [place] 2500 UNT/ML 00 Injectable Solution Protonix No Notes: Memoria 2-13 Tablet l 15:00: should not [place] 00 be chewed or crushed. (Same as: Protonix) Symbicort No Notes: Memori a 160/4.5 2-13 (Same as: l inhalation 15:00: Symbicort) H ermann aerosol 00 WASTE: with Aerosol - adapter Return to Pharmacy Aspirin 325 No Notes: Eleazar hilton MG Oral 2-13 Take with l Tablet 15:00: food. Omeprazole No 20 mg, Memor ia 2-13 Route: PO, l 15:00: Drug form: ECTAB, BID, Dosing Weight 50, kg, Start date: 10/11/16 9:00:00 PERSONAL SERVICE REPRESENTATIVE, Duration: 30 day, Stop date: 11/09/16 17:00:00 CDT potassium No Notes: Memori a chloride 2-13 (Same as: l 06:02: K-Dur 20) "Do Not Crush" With food and full [...] 2-13 not exceed l 02:07: 4 gm/day. [place] 00 (Same as: Tylenol) Docusate No Notes: Memoria 2-13 (Same as: l 02:07: Colace) (Do Not Crush) Morphine No Notes: Memoria 2-13 (Same l 02:07: as:MORPhin e Sulfate) Acetaminoph No Notes: Eleazar hilton en 325 MG / 2-13 (Same as: l Hydrocodone 02:07: [place] Caroline nn Bitartrate 00 325/5) Do 5 MG Oral not exceed Tablet 4gm/day of acetaminop hen. Ondansetron No Notes: Eleazar hilton 2-13 (Same as: l 02:07: Zofran) MEDICATION WASTE Product Size: 4 mg Product Wasted: 0 mg Dilaudid No Notes: Memoria 2-12 Same as: l 22:24: Dilaudid potassium No Notes: Memori a chloride 2-12 (Same as: l 19:48: K-Dur 20) "Do Not Crush" With food and full glass of water Aspirin No Notes: Memoria 2-12 Take with l 18:33: food. B-350 No 50 mg, Memoria 1-18 Route: PO, l 15:00: Daily, Dosing Weight 50, kg, Start date: 09/15/16 9:00:00 PERSONAL SERVICE REPRESENTATIVE, Duration: 30 day, Stop date: 10/14/16 9:00:00 PERSONAL SERVICE REPRESENTATIVE tramadol Yes 50 mg = 1 Eleazar hilton hydrochlori 8-17 tab, PO, l de 50 MG 06:12: BID, X 15 Herm sho Oral Tablet 00 day, # 30 tab, 0 Refill(s) Acetaminoph No Notes: Eleazar hilton en 325 MG / 8-17 (Same as: l Hydrocodone 05:13: [place] Caroline nn Bitartrate 00 325/5) Do 5 MG Oral not exceed Tablet 4gm/day of [[place] acetaminop 5/325] hen. atorvastati No Notes: Eleazar hilton n 7-16 (Same as: l 02:00: Lipitor) [place] 00 200 ACTUAT No Notes: Memor ia [...] CDT metoprolol No Notes: Memor ia tartrate -15 (Same as: l 14:00: Lopressor) clopidogrel No Notes: Eleazar hilton 7-15 (Same As: l 14:00: Plavix) Aspirin 325 No Notes: Eleazar hilton MG Oral -15 Take with l Tablet 14:00: food. Maciej 00 tramadol No Notes: Not Mem oria hydrochlori -15 to exceed l de 50 MG 13:11: 400mg/day. Her farooq Oral Tablet 00 (Same As: Ultram) Naprosyn No Notes: Memoria 7-15 (Same as: l 13:11: Naprosyn) Take with food. Lidocaine No Notes: Memori a Hydrochlori 15 (Same as: l de 0.05 13:11: Lidoderm) Caroline nn MG/MG 00 Transdermal Patch [Lidoderm] Aspirin No Notes: Memoria 7-15 Take with l 02:36: food. Nitroglycer No Notes: Eleazar hilton in 15 (Same l 02:35: as:Nitroqu ick, Nitrostat) "Do Not Crush" Sublingual tablet Saline No Notes: Memoria Flush 0.9% -15 (Same as: l 02:00: BD [place] Posiflush) Saline No Notes: Memoria Flush 0.9% -14 (Same as: l 23:45: BD Maciej 00 Posiflush) Sodium No 1,000 mL, Memori a Chloride 14 1,000 l 0.154 20:57: ml/hr, [place] MEQ/ML 00 Infuse Injectable Over: 1 Solution Hour, Route: IV, ONCE, Priority: STAT, Dosing Weight 50 kg, Start date: 03/11/16 15:57:00 CDT, Duration: 1 doses or times, Stop date: 03/11/16 15:57:00 CDT Sodium No 1,000 mL, Memori a Chloride 03-11 1,000 l 0.154 20:56: ml/hr, [place] MEQ/ML 00 Infuse Injectable Over: 1 Solution Hour, Route: IV, ONCE, Priority: STAT, Dosing Weight 50 kg, Start date: 03/11/16 15:56:00 CDT, Duration: 1 doses or times, Stop date: 03/11/16 15:56:00 CDT Saline No Notes: Memoria Flush 0.9% 03-11 (Same as: l 20:05: BD [place] 00 Posiflush) Nitroglycer No Notes: Eleazar hilton in 03-11 (Same l 20:05: as:Nitroqu [place] ick, Nitrostat) "Do Not Crush" Sublingual tablet [...] tab, PO, l Tablet 02:07: BID, PRN [place] [Naprosyn] 00 Pain Score 6-10, # 60 tab, 0 Refill(s) Zofran No Notes: Memoria 03-06 (Same as: l 00:55: Zofran Maciej 00 ODT) Acetaminoph No Notes: Eleazar hilton en 325 MG / 03-06 (Same as: l Hydrocodone 00:55: [place] Caroline nn Bitartrate 00 325/5) Do 5 MG Oral not exceed Tablet 4gm/day of [[place] acetaminop 5/325] hen. Flagyl No Notes: Memoria 03-06 (Same as: l 00:55: Flagyl) [place] 00 Take with food/ avoid alcohol predniSONE Yes 40 mg = 2 Me moria 20 mg oral 03-01 tab, PO, l tablet 01:00: Daily, X 3 Caroline nn 00 day, # 6 tab, 0 Refill(s) 200 ACTUAT Yes 2 puff, Eleazar hilton Albuterol 7-04 INHALATION l 0.09 01:00: , Q4H, PRN [...] 02-28 (Same as: l / 22:53: Duoneb) Maciej Ipratropium 00 [place] 0.167 MG/ML Inhalant Solution [DuoNeb] Symbicort Yes 2 puff, Memor ia 160/4.5 1-08 INHALATION l inhalation 13:20: , BID, # 1 H ermann aerosol 00 ea, 1 with Refill(s) adapter predniSONE Yes See Memoria 10 mg oral -08 Special l tablet 13:20: Instructio Caroline nn [...] tab, PO, l Tablet 13:20: Daily, 0 [place] 00 Refill(s) atorvastati No Notes: Eleazar hilton n -08 (Same as: l 03:00: Lipitor) Maciej 00 Solu-Medrol No Notes: Eleazar hilton -07 (Same l 22:00: as:Solu-ME Maciej 00 DROL, A-Methapre d) 24 HR No Notes: Memoria Metoprolol - (Same as: l Tartrate 25 15:00: Toprol XL) [place] MG Extended 00 Do Not Release Crush Tablet [Toprol] clopidogrel No Notes: Eleazar hilton 09-04 (Same As: l 15:00: Plavix) Maciej 00 Protonix No Notes: Memoria 09-04 Tablet l 15:00: should not [place] 00 be chewed or crushed. (Same as: Protonix) Aspirin 325 No Notes: Eleazar hilton MG Oral 09-04 Take with l Tablet 15:00: food. Omeprazole No 20 mg, Memor ia 09-04 Route: PO, l 15:00: Drug form: ECTAB, BID, Dosing Weight 50.92, kg, Start [...] 09-04 (Same as: l / 14:00: Duoneb) Ipratropium 00 [place] 0.167 MG/ML Inhalant Solution methylPREDN No Notes: Eleazar hilton ISolone 09-04 (Same l SODium 14:00: as:Solu-ME Caroline nn SUCCinate 00 DROL, A-Methapre d) methylPREDN No Notes: Eleazar hilton ISolone 09-04 (Same l SODium 04:05: as:Solu-ME Caroline nn SUCCinate 00 DROL, A-Methapre d) Albuterol No Notes: Memori a 0.833 MG/ML 09-04 (Same as: l / 04:05: Duoneb) [place] Ipratropium 00 [place] 0.167 MG/ML Inhalant Solution Saline No Notes: Memoria Flush 0.9% 09-04 (Same as: l 04:05: BD Maciej 00 Posiflush) atorvastati 2014-08 No Notes: Eleazar hilton n -19 (Same as: l 03:00: Lipitor) metoprolol 2014-08 [...] microgram l 0.09 17:40: = 1 puff, [place] MG/ACTUAT 00 INHALATION Metered , Q4H, PRN [...] Lopressor) clopidogrel 2014-08 No Notes: Eleazar hilton -18 (Same As: l 15:00: Plavix) Protonix 2014-08 No Notes: Memoria 1-18 Tablet l 13:30: should not [place] 00 be chewed or crushed. (Same as: Protonix) Albuterol 2014-08 No Notes: Memori a 0.833 MG/ML 1-18 (Same as: l / 03:38: Duoneb) [place] Ipratropium 00 [place] 0.167 MG/ML Inhalant Solution Sodium 2014-08 No 250 mL, Memoria Chloride 09-15 Route: l 0.9% IV 03:26: IVPB, Maciej 00 Start date: 07/15/15 21:26:00, Duration: 30 day, Stop date: 08/14/15 21:25:00, PRN Line Flush BD Normal 2014-08 No Notes: Memori a Saline 09-15 (Same as: l Flush 03:26: BD [place] Posiflush) Nitroglycer 2014-08 No Notes: Eleazar hilton in 09-15 (Same l 03:23: as:Nitroqu [place] 00 ick, Nitrostat) "Do Not Crush" Sublingual tablet Ibuprofen 2014-08 No Notes: Memori a 09-15 (Same as: l 03:20: Motrin) Maciej 00 "Do Not Crush" Give with food. Baclofen 2014-08 No Notes: Memoria 09-15 (Same As: l 03:20: Lioresal) [place] 00 200 ACTUAT 2014-08 No Notes: Memor ia Albuterol 09-15 Albuterol l 0.09 03:20: 90 [place] MG/ACTUAT 00 microgram/ Metered inh 8gm Dose [...] Saline 2014-08 No Notes: Memoria Flush 0.9% 09-15 (Same as: l 02:39: BD [place] Posiflush) Aspirin 2014-08 No 324 mg, Memoria 09-14 Route: PO, l 20:15: ONCE, Maciej 00 Dosing Weight 50, kg, Priority: STAT, Start date: 07/15/15 14:15:00, Stop date: 07/15/15 14:15:00 Saline 2014-08 No Notes: Memoria Flush 0.9% 1-17 (Same as: l 20:15: BD Posiflush) Sodium No 500 mL, Memoria Chloride 05-18 500 ml/hr, l 0.154 21:02: Infuse [place] MEQ/ML 00 Over: 1 Injectable Hour, Solution Route: IV, ONCE, Priority: STAT, Dosing Weight 50 kg, Start date: 05/18/15 16:02:00, Duration: 1 doses or times, Stop date: 05/18/15 16:02:00 GI cocktail No 30 mL, Eelazar hilton 05-18 Route: PO, l 18:59: Dosing [...] tab, PO, l tablet 23:45: TID, PRN for dizziness, X 20 day, # 60 tab, 0 Refill(s) Acetaminoph No Notes: Eleazar hilton en 05-02 (Same as: l 23:21: Tylenol) Antivert No Notes: Memoria 05-02 (Same as: l 21:38: Antivert) baclofen 10 Yes 10 mg = 1 M emoria mg oral 8-14 tab, PO, l tablet 19:32: TID, PRN Spasms, # 21 tab, 0 Refill(s) Acetaminoph Yes 1 tab, PO, Memoria en 300 MG / 04-11 Q6H, PRN l Codeine 19:31: pain, X 5 Caroline nn Phosphate 00 day, # 20 60 MG Oral tab, 0 Tablet Refill(s) [Tylenol with Codeine #4] Acetaminoph No Notes: Eleazar hilton en 325 MG / 04-11 Same as l Hydrocodone 17:21: [place] Caroline nn Bitartrate 00 325-7.5mg 7.5 MG Oral Do not Tablet exceed [[place] 4gm/day of 7.5/325] acetaminop hen. ibuprofen Yes [...] Memori a 03-23 (Same l 17:35: as:Chronul [place] 00 ac) atorvastati No Notes: Eleazar hilton n 03-23 (Same As: l 02:00: Lipitor) Motrin No Notes: Memoria - (Same as: l 23:10: Motrin) Maciej 00 "Do Not Crush" Take with food. Omeprazole No 20 mg, Memor ia 03-22 Route: PO, l 22:00: Drug form: Maciej 00 ECTAB, BID, Dosing Weight 53, kg, Start date: 03/22/15 17:00:00, Duration: 30 day, Stop date: 04/21/15 9:00:00 Protonix No Notes: Memoria 7-25 Tablet l 22:00: should not Maciej 00 be chewed or crushed. (Same as: Protonix) metoprolol No Notes: Memor ia extended 7-25 (Same as: l release 16:30: Toprol XL) Herm sho 00 Do Not Crush clopidogrel No Notes: Eleazar hilton 7-25 (Same As: l 16:00: Plavix) Maciej metoprolol Yes 12.5 mg = Me moria [...] INHALATION l 0.09 02:19: , Q4H, PRN [place] MG/ACTUAT 00 for Metered wheezing, Dose # 9 gm, 0 Inhaler Refill(s) Ondansetron No Notes: Eleazar hilton 7-25 (Same as: l 02:12: Zofran) Maciej MEDICATION WASTE Product Size: 4 mg Product Wasted: ___ mg Docusate No Notes: Memoria 7-25 (Same as: l 02:12: Colace) [place] (Do Not Crush) Acetaminoph No Notes: Do M emoria en 7-25 not exceed l 02:12: 4 gm/day. Maciej (Same as: Tylenol) Budesonide No Notes: Memor ia 0.25 MG/ML 7-25 (Same As: l Inhalant 01:00: Pulmicort) Her farooq Solution 00 [Pulmicort] Albuterol No Notes: Memori a 0.833 MG/ML 03-22 (Same as: l / 01:00: Duoneb) Maciej Ipratropium 00 [place] 0.167 MG/ML Inhalant Solution [DuoNeb] Potassium No Notes: Memori a Chloride 24 (Same as: l 1.33 MEQ/ML 23:15: Potassium H ermann Oral 00 Chloride) Solution Sodium No 1,000 mL, Memori a Chloride 24 1,000 l 0.154 22:23: ml/hr, [place] MEQ/ML 00 Infuse Injectable Over: 1 Solution hr, Route: IV, ONCE, Priority: STAT, Dosing Weight 50 kg, Start date: 03/21/15 17:23:00, Duration: 1 doses or times, Stop date: 03/21/15 17:23:00 Sodium No 1,000 mL, Memori a Chloride 24 1,000 l 0.154 21:12: ml/hr, [place] MEQ/ML 00 Infuse Injectable Over: 1 Solution hr, Route: IV, 1,000, Drug form: INJ, ONCE, Priority: STAT, Dosing Weight 50 kg, Start date: 03/21/15 16:12:00, Duration: 1 doses or times, Stop date: 03/21/15 16:12:00 Ondansetron No Notes: Eleazar hilton -24 (Same as: l 20:43: Zofran) [place] MEDICATION WASTE Product Size: 4 mg Product Wasted: ___ mg Morphine No Notes: Memoria -24 (Same l 20:43: as:MORPhin [place] 00 e Sulfate) Aspirin No Notes: Memoria 7-24 Take with l 20:43: food. Maciej 00 Saline No Notes: Memoria Flush 0.9% 03-21 (Same as: l 20:43: BD Maciej Posiflush) tramadol No 50 mg = 1 Eleazar hilton hydrochlori 7-14 tab, PO, l de 50 MG 22:02: Q4H, PRN Caroline nn Oral Tablet 00 pain, # 20 [Ultram] tab, 0 Refill(s) Aspirin No Notes: Memoria - Take with l 20:32: food. [place] 00 Morphine No Notes: Memoria 03-11 (Same l 20:32: as:MORPhin e Sulfate) Ondansetron No Notes: Eleazar hilton 03-11 (Same as: l 20:32: Zofran) MEDICATION WASTE [...] 03-05 Instructio l 09:13: ns: Use as [place] 00 directed 200 ACTUAT Yes 1 puff, Eleazar hilton Albuterol 08 INHALATION l 0.09 09:12: , Q4H, PRN [place] MG/ACTUAT 00 for Metered wheezing, Dose # 9 gm, 0 Inhaler Refill(s) Iohexol No Notes: Memoria 03-05 (same l 07:26: as:Omnipaq ue 350). Famotidine No 20 mg, 1 Mem oria 20 MG Oral -08 tab, l Tablet 07:18: Route: PO, Caroline nn [Pepcid] 00 ONCE, Dosing Weight 50, kg, Start date: 03/05/15 2:18:00, Stop date: 03/05/15 2:18:00 GI cocktail No 30 mL, Eleazar hilton 08 Route: PO, l 07:16: Dosing [place] 00 Weight 50, kg, ONCE, STAT, Start date: 03/05/15 2:16:00, Stop date: 03/05/15 2:16:00 Aspirin No Notes: Memoria 7-08 Take with l 06:11: food. remove No Notes: Memoria patch 02-26 Remove old l 14:00: patch before applicatio n of new patch. Plavix No Notes: Memoria 6-30 (Same As: l 14:00: Plavix) Omeprazole No 20 mg, Memor ia 6-30 Route: PO, l 14:00: Drug form: ECTAB, BID, Dosing Weight 50, kg, Start date: 02/25/15 9:00:00, Duration: 30 day, Stop date: 03/26/15 17:00:00 Nicoderm No Notes: Memoria C-Q -30 (Same as: l 14:00: Habitrol) "Remove old patch before applicatio n of new patch" Aspirin No Notes: Memoria 6-30 Take with l 14:00: food. 24 HR Yes = 1 patch, Memori a Nicotine 6-30 TOP, l 0.875 MG/HR 13:32: Daily, X [facility] Transdermal 56 14 day, # Patch 14 [...] PO, l oral tablet 13:32: [facility], [facility], # 30 tab, 0 [...] BD Normal No Notes: Memori a Saline -30 (Same as: l Flush 02:00: BD Posiflush) potassium No Notes: Memori a chloride 6-30 Infuse at l 02:00: a rate of 10 mEq/hr. (Same as: KCL) metoprolol No Notes: Memor ia tartrate 30 (Same as: l 02:00: Lopressor) cyclobenzap No Notes: Eleazar hilton rine 6-30 (Same As: l 01:53: Flexeril) Morphine No Notes: Memoria - (Same l 22:20: as:MORPhin e Sulfate) Ondansetron No Notes: Eleazar hilton 6-29 (Same as: l 22:20: Zofran) MEDICATION WASTE Product Size: 4 mg Product Wasted: ___ mg Acetaminoph No Notes: Do M emoria en 02-24 not exceed l 22:20: 4 gm/day. [place] 00 (Same as: Tylenol) Aspirin No Notes: Memoria - Take with l 21:09: food. potassium No 40 mEq, Memor ia chloride 02-24 Route: PO, l 19:49: Drug form: ERTAB, ONCE, Dosing Weight 50, kg, Priority: STAT, Start date: 02/24/15 14:49:00, Stop date: 02/24/15 14:49:00 Morphine No Notes: Memoria 02-24 (Same l 16:54: as:MORPhin e Sulfate) remove No Notes: Memoria patch 02-18 Remove old l 14:00: patch before applicatio n of new patch. Plavix No Notes: Memoria 02-18 (Same As: l 14:00: Plavix) atorvastati No Notes: Eleazar hilton n 02-18 (Same As: l 02:00: Lipitor) Pravastatin No Notes: Eleazar hilton 02-18 (Same as: l 02:00: Pravachol) Protonix No Notes: Memoria - Tablet l 22:30: should not be chewed [...] ml/hr, l 0.9% IV 21:45: ONCE, Maciej Start date: 02/17/15 16:45:00, 500 ml metoprolol Yes 12.5 mg = Me moria tartrate 25 6-22 0.5 tab, l mg oral 20:24: PO, BID, 0 Herm sho tablet 00 Refill(s) naproxen No 500 mg = 1 Mem oria 500 mg oral 6-22 tab, PO, l tablet 20:24: BID, PRN [place] 00 Pain, # 30 tab, 0 Refill(s) [...] Memoria 6-22 (Same as: l 14:00: Habitrol) [place] 00 "Remove old patch before applicatio n of new patch" Aspirin 81 No Notes: Do Me moria MG Enteric -22 not crush l Coated 14:00: or chew. Maciej Tablet 00 (Same As: Ecotrin) Sodium No 1,000 mL, Memori a Chloride -22 Rate: 125 l 0.154 13:38: ml/hr, Maciej MEQ/ML 00 Infuse Injectable over: 8 Solution hr, Route: IV, Dosing Weight 51.051 kg, Total Volume: 1,000, Start date: 02/17/15 8:38:00, Duration: 30 day, Stop date: 03/19/15 8:37:00 Aspirin 81 No 81 mg = 1 Me moria MG Enteric 6-22 tab, PO, l Coated 02:37: Daily, # [place] Tablet 00 90 tab, 3 Refill(s) clopidogrel Yes 75 mg = 1 M emoria 75 MG Oral 02-17 tab, PO, l Tablet 02:37: Daily, # Maciej [Plavix] 00 30 tab, 0 Refill(s) Enoxaparin No Notes: Memor ia 02-17 Nurse to l 02:30: ensure [place] 00 documentat ion of patient education per [...] rphan 02-17 (dextromet l Hydrobromid 02:08: horphan-gu [place] e 2 MG/ML / 00 aifenesin Guaifenesin 10-100mg/5 20 MG/ML ml 10 ml Oral oral SOLN Solution ud) (Same as: Robitussin DM) Simethicone No Notes: Eleazar hilton 02-17 (Same as: l 02:08: Mylicon) Bisacodyl No Notes: Memori a 02-17 (Same As: l 02:08: DulcolaxMaciej Bisco-Lax) Ondansetron No Notes: Eleazar hilton 02-17 (Same as: l 02:08: Zofran) MEDICATION WASTE Product Size: 4 mg Product Wasted: ___ mg Nitroglycer No Notes: 1 Me moria in 0.02 22 gram is l MG/MG 02:06: approximat Kristopher n Topical 00 lv 1 inch Ointment of nitroglyce rin ointment (20 mg NTG per gram) (Same as:Nitro-B id) Nitroglycer No Notes: Eleazar hilton in 02-17 (Same l 02:06: as:Nitroqu [place] 00 ick, Nitrostat) "Do Not Crush" Sublingual tablet Acetaminoph No Notes: Do M emoria en 02-17 not exceed l 02:06: 4 gm/day. [place] 00 (Same as: Tylenol) Acetaminoph No Notes: Eleazar hilton en 325 MG / 02-17 (Same as: l Hydrocodone 02:06: [place] Caroline nn Bitartrate 00 325/5) Do 5 MG Oral not exceed Tablet 4gm/day of acetaminop hen. Morphine No Notes: Memoria 02-17 (Same l 02:06: as:MORPhin Maciej 00 e Sulfate) Sodium No 1,000 mL, Memori a Chloride 02-17 Rate: 125 l 0.154 02:06: ml/hr, [place] MEQ/ML 00 Infuse Injectable over: 8 Solution [...] 02-17 Route: l 0.9% IV 00:52: IVPB, [place] 00 Start date: 02/16/15 19:52:00, Duration: 30 day, Stop date: 03/18/15 19:51:00, PRN Line Flush BD Normal No Notes: Memori a Saline 02-17 (Same as: l Flush 00:52: BD [place] 00 Posiflush) Morphine No Notes: Memoria 02-17 (Same l 00:28: as:MORPhin [place] 00 e Sulfate) Nitroglycer No Notes: Eleazar hilton in 02-17 (Same l 00:28: as:Nitroqu [place] 00 ick, Nitrostat) "Do Not Crush" Sublingual tablet Aspirin No Notes: (Do Eleazar hilton 02-16 Not Crush) l 22:49: Do not Maciej crush or chew. Ondansetron No Notes: Eleazar hilton 12-22 (Same as: l 21:22: Zofran) Morphine No Notes: Memoria 12-22 (Same l 21:22: as:MORPhin Maciej e Sulfate) Aspirin / No Notes: Memori a Calcium 12-22 Take with l Carbonate 21:22: food. Aspirin 81 Yes 81 mg = 1 Me moria MG Enteric 4-21 tab, PO, l Coated 20:08: Daily, # [place] Tablet 00 90 tab, 0 Refill(s) metoprolol Yes 12.5 mg = Me moria tartrate 25 -21 0.5 tab, l mg oral 20:08: PO, BID, # Herm sho tablet 00 90 tab, 0 Refill(s) clopidogrel Yes 75 mg = 1 M emoria 75 mg oral 4-21 tab, PO, l tablet 20:08: Daily, # Maciej 00 90 tab, 0 Refill(s) atorvastati Yes 20 mg = 1 M emoria n 20 mg 4-21 tab, PO, l oral tablet 20:08: Bedtime, # [place] 00 90 tab, 0 Refill(s) metoprolol No Notes: Memor ia tartrate 12-17 (Same as: l 14:00: Lopressor) 12.5mg=1/ 4 X 50 mg tab. Lovenox No Notes: Memoria -21 (Same as: l 14:00: Lovenox) clopidogrel No Notes: Eleazar hilton - (Same As: l 14:00: Plavix) Aspirin / No Notes: Do Mem oria Calcium 12-17 not crush l Carbonate 14:00: or chew. Herm sho (Same As: Ecotrin) Saline No Notes: Memoria Flush 0.9% -21 (Same as: l 14:00: BD Mac[place] 00 Posiflush) Adenosine No 41.6178 Memor ia 4-21 mg, Route: l 03:42: IVP, ONCE, Maciej 00 Dosing Weight 49.545, kg, Priority: Routine, Start date: 12/16/13 22:42:00, Stop date: 12/16/13 22:42:00 atorvastati No Notes: Eleazar hilton n 12-17 (Same As: l 03:28: Lipitor) Maciej 00 Saline No Notes: Memoria Flush 0.9% 12-17 (Same as: l 03:25: BD [place] 00 Posiflush) Nitroglycer No Notes: Eleazar hilton in 12-17 (Same l 03:25: as:Nitroqu Maciej 00 ick, Nitrostat) "Do Not Crush" Sublingual tablet atorvastati No 20 mg = 1 M emoria n 20 mg 21 tab, PO, l oral tablet 01:48: Bedtime, # [place] 00 30 tab, 0 Refill(s) clopidogrel No 75 mg = 1 M emoria 75 mg oral 4-21 tab, PO, l tablet 01:48: Daily, 0 [place] 00 Refill(s) Metoprolol No 12.5 mg = Me moria Tartrate 25 4-21 0.5 tab, l mg oral 01:47: PO, BID, 0 Herm sho tablet 00 Refill(s) Aspirin Low No = 1 tab, Me moria Dose 81 mg -21 PO, Daily, l oral tablet 01:46: 0 Kristopher n 00 Refill(s) Sodium No 1,000 mL, Memori a Chloride 12-16 1,000 l 0.154 23:43: ml/hr, Maciej MEQ/ML 00 Infuse Injectable Over: 1 Solution hr, Route: IV, 1,000, Drug form: INJ, ONCE, Priority: STAT, Dosing Weight 48.636 kg, Start date: 12/16/13 18:43:00, Duration: 1 doses or times, Stop date: 12/16/13 18:43:00 Iohexol No Special Memoria 4-20 Instructio l 21:17: ns: Dose = [place] 00 2.2ml/kg, Max dose = 100ml -- "To be infused by Radiology Staff ONLY" Sodium No 1,000 mL, Memori a Chloride 4-20 1,000 l 0.154 19:43: ml/hr, [place] MEQ/ML 00 Infuse Injectable Over: 1 Solution [...] hilton 4-20 G.I. l 17:54: Cocktail = [place] 00 antacid with simethicon e 22.5 mL [...] n 3-14 tab, l 02:00: Route: PO, Maciej 00 Drug form: TAB, Bedtime, Dosing Weight [...] tab, PO, l Tablet 20:52: Daily, # [place] [Plavix] 00 30 tab, 0 Refill(s) atorvastati Yes 20 mg = 1 M emoria n 20 mg 3-13 tab, PO, l oral tablet 20:52: Bedtime, # [place] 00 30 tab, 0 Refill(s) Aspirin 81 Yes 81 mg = 1 Me moria MG Chewable 3-13 tab, PO, l Tablet 20:52: Daily, # [place] 00 60 tab, 0 Refill(s) Plavix No 75 mg, 1 Memoria 3-13 tab, l 14:00: Route: PO, [place] 00 Drug form: TAB, Daily, Dosing Weight [...] ia 3-13 tab, l 13:15: Route: PO, [place] 00 Drug form: TAB, Q4H, Dosing Weight 63.636, kg, PRN Pain, Start date: 11/08/13 8:15:00, Duration: 30 day, Stop date: 12/08/13 8:14:00Do not exceed 4 gm/day. (Same as: Tylenol) Saline No 5 ml, Memoria Flush 0.9% 11-08 Route: l 12:06: MISC, Drug Maciej 00 Form: INJ, Dosing Weight 63.636, kg, PRN, PRN Line Flush, Start date: 11/08/13 7:06:00, Duration: 30 day, Stop date: 12/08/13 7:05:00( me as: BD Posiflush) Nitroglycer No 0.4 mg, 1 M emoria in 11-08 tab, l 12:06: Route: SL, Maciej 00 Drug form: TAB, Q5Min, Dosing Weight 63.636, [...] Diastolic (mm Hg) 2017-01-19 23:16:00 Mem orial [place] Respitory Rate 2017-01-19 23:16:00 Memori al [place] Systolic (mm Hg) 2017-01-19 22:28:00 Eleazar rial [place] Diastolic (mm Hg) 2017-01-19 22:28:00 Mem orial [place] Respitory Rate 2017-01-19 22:28:00 Memori al [place] Respitory Rate 2017-01-19 21:00:00 Memori al [place] Systolic (mm Hg) 2017-01-19 20:00:00 Eleazar rial [place] Diastolic (mm Hg) 2017-01-19 20:00:00 Mem orial [place] Weight 2017-01-19 17:23:00 [facility] [place] BMI Calculated 2017-01-19 17:23:00 Memori al Maciej Height 2017-01-19 17:23:00 152.4 cm [facility] Maciej Temperature Oral (F) 2017-01-19 17:23:00 97.0 F [facility] Maciej Heart Rate 2017-01-19 17:23:00 [facility] Maciej Systolic (mm Hg) 2017-01-17 02:10:00 Eleazar rial Maciej Diastolic (mm Hg) 2017-01-17 02:10:00 Mem orial [place] Respitory Rate 2017-01-17 02:10:00 Memori al [place] Systolic (mm Hg) 2017-01-17 01:21:00 Eleazar rial [place] Diastolic (mm Hg) 2017-01-17 01:21:00 Mem orial [place] Respitory Rate 2017-01-17 01:21:00 Memori al Maciej Temperature Oral (F) 2017-01-17 01:21:00 98.1 F [facility] [place] Systolic (mm Hg) 2017-01-17 00:28:00 Eleazar rial [place] Diastolic (mm Hg) 2017-01-17 00:28:00 Mem orial Maciej Respitory Rate 2017-01-17 00:28:00 Memori al [place] Heart Rate 2017-01-16 23:24:00 [facility] [place] Temperature Oral (F) 2017-01-16 23:24:00 98 F [facility] [place] Weight 2017-01-16 23:24:00 [facility] Maciej Heart Rate 2016-11-29 03:44:00 [facility] [place] Systolic (mm Hg) 2016-11-29 03:44:00 Eleazar rial [place] Diastolic (mm Hg) 2016-11-29 03:44:00 Mem orial [place] Respitory Rate 2016-11-29 03:44:00 Memori al Maciej Temperature Oral (F) 2016-11-29 03:44:00 98.7 F [facility] Maciej Heart Rate 2016-11-29 03:24:00 [facility] Maciej Respitory Rate 2016-11-29 03:24:00 Memori al Maciej Systolic (mm Hg) 2016-11-29 03:24:00 Eleazar rial [place] Diastolic (mm Hg) 2016-11-29 03:24:00 Mem orial Maciej Heart Rate 2016-11-29 02:51:00 [facility] [place] Respitory Rate 2016-11-29 02:51:00 Memori al Maciej Systolic (mm Hg) 2016-11-29 02:51:00 Eleazar rial Maciej Diastolic (mm Hg) 2016-11-29 02:51:00 Mem orial [place] Weight 2016-11-29 00:21:00 [facility] Maciej BMI Calculated 2016-11-29 00:21:00 Memori al [place] Height 2016-11-29 00:21:00 152.4 cm [facility] Maciej Temperature Oral (F) 2016-11-29 00:21:00 98.6 F [facility] Maciej Respitory Rate 2016-11-07 02:47:00 Memori al [place] Heart Rate 2016-11-07 02:47:00 [facility] [place] Temperature Oral (F) 2016-11-07 02:47:00 98.2 F [facility] Maciej Systolic (mm Hg) 2016-11-07 02:47:00 Eleazar rial [place] Diastolic (mm Hg) 2016-11-07 02:47:00 Mem orial Maciej Heart Rate 2016-11-07 02:22:00 [facility] Maciej Respitory Rate 2016-11-07 02:22:00 Memori al Mac[place] Systolic (mm Hg) 2016-11-07 02:22:00 Eleazar rial Maciej Diastolic (mm Hg) 2016-11-07 02:22:00 Mem orial [place] Weight 2016-11-06 23:37:00 [facility] Maciej Heart Rate 2016-11-06 23:37:00 [facility] [place] Temperature Oral (F) 2016-11-06 23:37:00 98.3 F [facility] Maciej Respitory Rate 2016-11-06 23:37:00 Memori al [place] Systolic (mm Hg) 2016-11-06 23:37:00 Eleazar rial [place] Diastolic (mm Hg) 2016-11-06 23:37:00 Mem orial [place] Respitory Rate 2016-10-11 18:24:00 Memori al Mac[place] Temperature Oral (F) 2016-10-11 18:24:00 97.9 F [facility] [place] Systolic (mm Hg) 2016-10-11 18:24:00 Eleazar rial [place] Diastolic (mm Hg) 2016-10-11 18:24:00 Mem orial [place] Heart Rate 2016-10-11 18:24:00 [facility] [place] Heart Rate 2016-10-11 13:53:00 [facility] Maciej Systolic (mm Hg) 2016-10-11 13:53:00 Eleazar rial [place] Diastolic (mm Hg) 2016-10-11 13:53:00 Mem orial [place] Temperature Oral (F) 2016-10-11 13:53:00 98.1 F [facility] Maciej Temperature Oral (F) 2016-10-11 10:16:00 99.0 F [facility]iej Respitory Rate 2016-10-11 10:16:00 Memori al Maciej Heart Rate 2016-10-11 10:16:00 [facility] Maciej Systolic (mm Hg) 2016-10-11 10:16:00 Eleazar rial [place] Diastolic (mm Hg) 2016-10-11 10:16:00 Mem orial Maciej Weight 2016-10-11 06:46:00 [facility] Maciej BMI Calculated 2016-10-11 06:46:00 Memori al [place] Height 2016-10-11 06:46:00 152.4 cm [facility] [place] Respitory Rate 2016-10-11 06:39:00 Memori al [place] Height 2016-10-10 17:48:00 152.4 cm [facility] Maciej BMI Calculated 2016-10-10 17:48:00 Memori al [place] Weight 2016-10-10 17:48:00 [facility] [place] BMI Calculated 2016-09-15 04:26:00 Memori al Mac[place] Weight 2016-09-15 04:26:00 [facility] Maciej Height 2016-09-15 04:26:00 152.4 cm [facility] [place] Systolic (mm Hg) 2016-09-15 04:26:00 Eleazar rial Maciej Diastolic (mm Hg) 2016-09-15 04:26:00 Mem orial Maciej Respitory Rate 2016-09-15 04:26:00 Memori al [place] Heart Rate 2016-09-15 04:26:00 [facility] [place] Temperature Oral (F) 2016-09-15 04:26:00 98.5 F [facility] [place] Respitory Rate 2016-04-14 06:22:00 Memori al Mac[place] Temperature Oral (F) 2016-04-14 06:22:00 98.7 F [facility] [place] Systolic (mm Hg) 2016-04-14 06:22:00 Eleazar rial Maciej Diastolic (mm Hg) 2016-04-14 06:22:00 Mem orial [place] Heart Rate 2016-04-14 06:22:00 [facility] Maciej BMI Calculated 2016-04-14 02:12:00 Memori al [place] Weight 2016-04-14 02:12:00 [facility] [place] Temperature Oral (F) 2016-04-14 02:12:00 99.2 F [facility]iej Height 2016-04-14 02:12:00 152.4 cm [facility] [place] Respitory Rate 2016-04-14 02:12:00 Memori al Maciej Systolic (mm Hg) 2016-04-14 02:12:00 Eleazar rial [place] Diastolic (mm Hg) 2016-04-14 02:12:00 Mem orial Maciej Heart Rate 2016-04-14 02:12:00 [facility] Maciej Temperature Oral (F) 2016-03-12 17:00:00 97.8 F [facility] [place] Heart Rate 2016-03-12 17:00:00 [facility] Maciej Respitory Rate 2016-03-12 17:00:00 Memori al Maciej Systolic (mm Hg) 2016-03-12 17:00:00 Eleazar rial [place] Diastolic (mm Hg) 2016-03-12 17:00:00 Mem orial Maciej Respitory Rate 2016-03-12 12:54:00 Memori al Mac[place] Systolic (mm Hg) 2016-03-12 12:30:00 Eleazar rial [place] Diastolic (mm Hg) 2016-03-12 12:30:00 Mem orial [place] Respitory Rate 2016-03-12 12:30:00 Memori al Maciej Heart Rate 2016-03-12 12:30:00 [facility] [place] Temperature Oral (F) 2016-03-12 12:30:00 98.2 F [facility] [place] Temperature Oral (F) 2016-03-12 10:26:00 98.0 F [facility] [place] Heart Rate 2016-03-12 10:26:00 [facility] [place] Systolic (mm Hg) 2016-03-12 10:26:00 Eleazar rial [place] Diastolic (mm Hg) 2016-03-12 10:26:00 Mem orial [place] Height 2016-03-11 19:45:00 152.4 cm [facility] [place] BMI Calculated 2016-03-11 19:45:00 [facility] al [place] Weight 2016-03-11 19:45:00 [facility]iej Respitory Rate 2016-03-06 01:44:00 Mem[facility] al [place] Systolic (mm Hg) 2016-03-06 01:44:00 Eleazar rial Maciej Diastolic (mm Hg) 2016-03-06 01:44:00 Mem orial [place] Heart Rate 2016-03-06 01:44:00 [facility] [place] Temperature Oral (F) 2016-03-06 01:44:00 98.1 F [facility] [place] BMI Calculated 2016-03-05 21:55:00 Memori al [place] Weight 2016-03-05 21:55:00 [facility] [place] Systolic (mm Hg) 2016-03-05 21:55:00 Eleazar rial [place] Diastolic (mm Hg) 2016-03-05 21:55:00 Mem orial Maciej Heart Rate 2016-03-05 21:55:00 [facility] [place] Height 2016-03-05 21:55:00 152.4 cm [facility] [place] Temperature Oral (F) 2016-03-05 21:55:00 98.3 F [facility] [place] Respitory Rate 2016-03-05 21:55:00 Memori al [place] Respitory Rate 2016-03-01 01:23:00 Memori al Maciej Systolic (mm Hg) 2016-03-01 01:23:00 Eleazar rial Maciej Diastolic (mm Hg) 2016-03-01 01:23:00 Mem orial [place] Temperature Oral (F) 2016-03-01 01:23:00 98.2 F [facility] [place] Heart Rate 2016-03-01 01:23:00 [facility] [place] Respitory Rate 2016-02-29 23:25:00 Memori al Mac[place] Temperature Oral (F) 2016-02-29 22:27:00 98.3 F [facility] Heart Rate 2016-02-29 22:27:00 [facility] Respitory Rate 2016-02-29 22:27:00 Mem[facility] al [place] Systolic (mm Hg) 2016-02-29 22:27:00 Eleazar rial [place] Diastolic (mm Hg) 2016-02-29 22:27:00 Mem o[facility] [place] Respitory Rate 2015-09-05 14:47:00 [facility] al [place] Systolic (mm Hg) 2015-09-05 14:47:00 Eleazar rial [place] Diastolic (mm Hg) 2015-09-05 14:47:00 Mem o[facility] [place] Heart Rate 2015-09-05 14:47:00 [facility] [place] Weight 2015-09-05 11:00:00 [facility] [place] Systolic (mm Hg) 2015-09-05 10:00:00 Eleazar rial Maciej Diastolic (mm Hg) 2015-09-05 10:00:00 Mem o[facility] Respitory Rate 2015-09-05 10:00:00 [facility] al [place] Heart Rate 2015-09-05 10:00:00 [facility] [place] Respitory Rate 2015-09-05 06:00:00 [facility] al [place] Systolic (mm Hg) 2015-09-05 06:00:00 Eleazar rial Maciej Diastolic (mm Hg) 2015-09-05 06:00:00 [facility] [place] Heart Rate 2015-09-05 06:00:00 [facility] Weight 2015-09-04 11:00:00 [facility] [place] Weight 2015-09-04 09:15:00 [facility] [place] BMI Calculated 2015-09-04 09:15:00 [facility] al [place] Height 2015-09-04 09:15:00 160.02 cm [facility] Temperature Oral (F) 2015-09-04 09:06:00 98.3 F [facility] [place] Height 2015-09-04 03:35:00 152.4 cm [facility] BMI Calculated 2015-09-04 03:35:00 Memori al [place] Temperature Oral (F) 2015-09-04 03:35:00 98.7 F [facility] [place] Systolic (mm Hg) 2015-07-16 13:56:00 Eleazar rial [place] Diastolic (mm Hg) 2015-07-16 13:56:00 [facility] [place] Respitory Rate 2015-07-16 13:56:00 [facility] al [facility] Heart Rate 2015-07-16 13:56:00 [facility] Temperature Oral (F) 2015-07-16 13:56:00 98.0 F [facility] Systolic (mm Hg) 2015-07-16 13:55:00 Eleazar rial Maciej Diastolic (mm Hg) 2015-07-16 13:55:00 [facility] Respitory Rate 2015-07-16 13:55:00 [facility] Heart Rate 2015-07-16 13:55:00 [facility] Temperature Oral (F) 2015-07-16 13:55:00 97.4 F [facility] Systolic (mm Hg) 2015-07-16 10:00:00 Eleazar rial [place] Diastolic (mm Hg) 2015-07-16 10:00:00 [facility] Respitory Rate 2015-07-16 10:00:00 [facility] [place] Heart Rate 2015-07-16 10:00:00 [facility] Temperature Oral (F) 2015-07-16 10:00:00 97.9 F [facility] [place] Height 2015-07-16 01:30:00 152.4 cm [facility] [place] Weight 2015-07-16 01:30:00 [facility] [place] BMI Calculated 2015-07-16 01:30:00 [facility] [place] Height 2015-07-15 18:10:00 152.4 cm [facility] BMI Calculated 2015-07-15 18:10:00 [facility] [place] Weight 2015-07-15 18:10:00 [facility] [place] Weight 2015-07-05 04:10:00 [facility] [place] Height 2015-07-05 04:10:00 152.4 cm [facility] [place] BMI Calculated 2015-07-05 04:10:00 [facility] al [place] Temperature Oral (F) 2015-07-05 04:10:00 98.3 F [facility] [place] Respitory Rate 2015-07-05 04:10:00 [facility] [place] Heart Rate 2015-07-05 04:10:00 [facility] Systolic (mm Hg) 2015-07-05 04:10:00 Eleazar rial [place] Diastolic (mm Hg) 2015-07-05 04:10:00 [facility] [place] BMI Calculated 2015-07-04 18:05:00 [facility] [place] Weight 2015-07-04 18:05:00 [facility] [place] Height 2015-07-04 18:05:00 152.4 cm [facility] [place] Temperature Oral (F) 2015-07-04 18:05:00 97.9 F [facility] [place] Respitory Rate 2015-07-04 18:05:00 [facility] Heart Rate 2015-07-04 18:05:00 [facility] Systolic (mm Hg) 2015-07-04 18:05:00 Eleazar rial [place] Diastolic (mm Hg) 2015-07-04 18:05:00 [facility] [place] BMI Calculated 2015-06-04 04:13:00 [facility] [place] Weight 2015-06-04 04:13:00 [facility] Height 2015-06-04 04:13:00 152.4 cm [facility] Temperature Oral (F) 2015-06-04 04:13:00 98.8 F [facility] Respitory Rate 2015-06-04 04:13:00 [facility] Heart Rate 2015-06-04 04:13:00 [facility] Systolic (mm Hg) 2015-06-04 04:13:00 [facility] Diastolic (mm Hg) 2015-06-04 04:13:00 [facility] Systolic (mm Hg) 2015-05-18 22:47:00 [facility] Diastolic (mm Hg) 2015-05-18 22:47:00 [facility] Temperature Oral (F) 2015-05-18 22:47:00 96.6 F [facility] Heart Rate 2015-05-18 22:47:00 [facility] Respitory Rate 2015-05-18 22:47:00 [facility] Systolic (mm Hg) 2015-05-18 22:30:00 [facility] Diastolic (mm Hg) 2015-05-18 22:30:00 [facility] Systolic (mm Hg) 2015-05-18 21:00:00 [facility] Diastolic (mm Hg) 2015-05-18 21:00:00 [facility] Temperature Oral (F) 2015-05-18 21:00:00 98.1 F [facility] Respitory Rate 2015-05-18 21:00:00 [facility] Temperature Oral (F) 2015-05-18 19:21:00 98.2 F [facility] Heart Rate 2015-05-18 19:21:00 [facility] Respitory Rate 2015-05-18 19:21:00 [facility] Heart Rate 2015-05-18 17:10:00 [facility] Respitory Rate 2015-05-09 20:00:00 [facility] Systolic (mm Hg) 2015-05-09 20:00:00 [facility] Diastolic (mm Hg) 2015-05-09 20:00:00 [facility] [facility] Temperature Oral (F) 2015-05-09 20:00:00 97.5 F [facility] Temperature Oral (F) 2015-05-09 19:10:00 97.5 F [facility] Systolic (mm Hg) 2015-05-09 19:10:00 [facility] Diastolic (mm Hg) 2015-05-09 19:10:00 [facility] Respitory Rate 2015-05-09 19:10:00 [facility] Systolic (mm Hg) 2015-05-09 18:41:00 [facility] Diastolic (mm Hg) 2015-05-09 18:41:00 [facility] Weight 2015-05-09 17:37:00 [facility] BMI Calculated 2015-05-09 17:37:00 [facility] Height 2015-05-09 17:37:00 152.4 cm [facility] Temperature Oral (F) 2015-05-09 17:37:00 98.9 F [facility] Respitory Rate 2015-05-09 17:37:00 [facility] Heart Rate 2015-05-09 17:37:00 [facility] Systolic (mm Hg) 2015-05-03 00:04:00 [facility] Diastolic (mm Hg) 2015-05-03 00:04:00 [facility] Heart Rate 2015-05-03 00:04:00 [facility] Respitory Rate 2015-05-03 00:04:00 [facility] Temperature Oral (F) 2015-05-03 00:04:00 98.5 F [facility] Heart Rate 2015-05-02 21:17:00 [facility] Respitory Rate 2015-05-02 21:17:00 [facility] Systolic (mm Hg) 2015-05-02 21:17:00 [facility] Diastolic (mm Hg) 2015-05-02 21:17:00 [facility] Heart Rate 2015-05-02 20:24:00 [facility] Temperature Oral (F) 2015-05-02 20:24:00 98.1 F [facility] Systolic (mm Hg) 2015-05-02 20:24:00 [facility] Diastolic (mm Hg) 2015-05-02 20:24:00 [facility] Respitory Rate 2015-05-02 20:24:00 [facility] Temperature Oral (F) 2015-05-02 18:35:00 98.9 F [facility] Systolic (mm Hg) 2015-04-11 19:45:00 [facility] Diastolic (mm Hg) 2015-04-11 19:45:00 [facility] Temperature Oral (F) 2015-04-11 19:45:00 98.7 F [facility] Respitory Rate 2015-04-11 19:45:00 [facility] Heart Rate 2015-04-11 19:45:00 [facility] Weight 2015-04-11 16:35:00 [facility] Temperature Oral (F) 2015-04-11 16:35:00 98.4 F [facility] Systolic (mm Hg) 2015-04-11 16:35:00 [facility] Diastolic (mm Hg) 2015-04-11 16:35:00 [facility] Respitory Rate 2015-04-11 16:35:00 [facility] Heart Rate 2015-04-11 16:35:00 [facility] Systolic (mm Hg) 2015-03-30 22:06:00 [facility] Diastolic (mm Hg) 2015-03-30 22:06:00 [facility] Temperature Oral (F) 2015-03-30 22:06:00 97.9 F [facility] Heart Rate 2015-03-30 22:06:00 [facility] Respitory Rate 2015-03-30 22:06:00 [facility] BMI Calculated 2015-03-30 19:44:00 [facility] Height 2015-03-30 19:44:00 152.4 cm [facility] Systolic (mm Hg) 2015-03-30 19:44:00 [facility] Diastolic (mm Hg) 2015-03-30 19:44:00 [facility] Respitory Rate 2015-03-30 19:44:00 [facility] Heart Rate 2015-03-30 19:44:00 [facility] Weight 2015-03-30 19:44:00 [facility] Temperature Oral (F) 2015-03-30 19:44:00 97.9 F [facility] Respitory Rate 2015-03-24 21:57:00 [facility] Temperature Oral (F) 2015-03-24 21:57:00 97.9 F [facility] Heart Rate 2015-03-24 21:57:00 [facility] Systolic (mm Hg) 2015-03-24 21:57:00 [facility] Diastolic (mm Hg) 2015-03-24 21:57:00 [facility] Heart Rate 2015-03-24 17:28:00 [facility] Temperature Oral (F) 2015-03-24 17:28:00 98.8 F [facility] Respitory Rate 2015-03-24 17:28:00 [facility] Systolic (mm Hg) 2015-03-24 17:28:00 [facility] Diastolic (mm Hg) 2015-03-24 17:28:00 [facility] Heart Rate 2015-03-24 13:08:00 [facility] Temperature Oral (F) 2015-03-24 13:08:00 98.4 F [facility] Respitory Rate 2015-03-24 13:08:00 [facility] Systolic (mm Hg) 2015-03-24 13:08:00 [facility] Diastolic (mm Hg) 2015-03-24 13:08:00 [facility] BMI Calculated 2015-03-22 01:41:00 [facility] Weight 2015-03-22 01:41:00 [facility] Height 2015-03-22 01:41:00 152.4 cm [facility] BMI Calculated 2015-03-21 18:42:00 [facility] Weight 2015-03-21 18:42:00 [facility] Height 2015-03-21 18:42:00 152.4 cm [facility] Systolic (mm Hg) 2015-03-11 22:39:00 [facility] Diastolic (mm Hg) 2015-03-11 22:39:00 [facility] Respitory Rate 2015-03-11 22:39:00 [facility] Heart Rate 2015-03-11 22:39:00 [facility] Temperature Oral (F) 2015-03-11 22:39:00 98.1 F [facility] BMI Calculated 2015-03-11 19:44:00 [facility] Weight 2015-03-11 19:44:00 [facility] Systolic (mm Hg) 2015-03-11 19:44:00 [facility] Diastolic (mm Hg) 2015-03-11 19:44:00 [facility] Temperature Oral (F) 2015-03-11 19:44:00 97.9 F [facility] Heart Rate 2015-03-11 19:44:00 [facility] Respitory Rate 2015-03-11 19:44:00 [facility] Height 2015-03-11 19:44:00 152.4 cm [facility] Temperature Oral (F) 2015-03-05 10:15:00 97.9 F [facility] Systolic (mm Hg) 2015-03-05 10:15:00 Ele[facility] Diastolic (mm Hg) 2015-03-05 10:15:00 [facility] Respitory Rate 2015-03-05 10:15:00 [facility] Respitory Rate 2015-03-05 09:53:00 [facility] Temperature Oral (F) 2015-03-05 09:53:00 97.8 F [facility] Systolic (mm Hg) 2015-03-05 09:53:00 [facility] Diastolic (mm Hg) 2015-03-05 09:53:00 [facility] Respitory Rate 2015-03-05 06:30:00 [facility] Systolic (mm Hg) 2015-03-05 06:30:00 [facility] Diastolic (mm Hg) 2015-03-05 06:30:00 [facility] Temperature Oral (F) 2015-03-05 06:20:00 97.7 F [facility] Heart Rate 2015-03-05 06:20:00 [facility] Heart Rate 2015-03-05 05:46:00 [facility] Height 2015-03-05 05:46:00 152.4 cm [facility] BMI Calculated 2015-03-05 05:46:00 [facility] Weight 2015-03-05 05:46:00 [facility] Systolic (mm Hg) 2015-02-25 20:55:00 [facility] Diastolic (mm Hg) 2015-02-25 20:55:00 [facility] Temperature Oral (F) 2015-02-25 20:55:00 97.9 F [facility] Heart Rate 2015-02-25 20:55:00 [facility] Respitory Rate 2015-02-25 20:55:00 [facility] Temperature Oral (F) 2015-02-25 17:18:00 98 F [facility] Heart Rate 2015-02-25 17:18:00 [facility] Respitory Rate 2015-02-25 17:18:00 [facility] [place] Systolic (mm Hg) 2015-02-25 17:18:00 [facility] Diastolic (mm Hg) 2015-02-25 17:18:00 [facility] Systolic (mm Hg) 2015-02-25 12:00:00 [facility] Diastolic (mm Hg) 2015-02-25 12:00:00 [facility] Respitory Rate 2015-02-25 12:00:00 [facility] Heart Rate 2015-02-25 12:00:00 [facility] Temperature Oral (F) 2015-02-25 12:00:00 97.8 F [facility] Height 2015-02-24 16:11:00 152.4 cm [facility] BMI Calculated 2015-02-24 16:11:00 [facility] Weight 2015-02-24 16:11:00 [facility] Heart Rate 2015-02-18 20:17:00 [facility] Temperature Oral (F) 2015-02-18 20:17:00 97.3 F [facility] Systolic (mm Hg) 2015-02-18 20:17:00 [facility] Diastolic (mm Hg) 2015-02-18 20:17:00 [facility] Respitory Rate 2015-02-18 20:17:00 [facility] Heart Rate 2015-02-18 16:13:00 [facility] Respitory Rate 2015-02-18 16:13:00 [facility] Systolic (mm Hg) 2015-02-18 16:13:00 [facility] Diastolic (mm Hg) 2015-02-18 16:13:00 [facility] Temperature Oral (F) 2015-02-18 16:13:00 97.5 F [facility] Temperature Oral (F) 2015-02-18 12:19:00 97.9 F [facility] Systolic (mm Hg) 2015-02-18 12:19:00 [facility] Diastolic (mm Hg) 2015-02-18 12:19:00 [facility] Respitory Rate 2015-02-18 12:19:00 [facility] Heart Rate 2015-02-18 12:19:00 [facility] Weight 2015-02-17 02:30:00 [facility] Height 2015-02-17 02:30:00 152.4 cm [facility] BMI Calculated 2015-02-17 02:30:00 [facility] Weight 2015-02-16 20:42:00 [facility] BMI Calculated 2015-02-16 20:42:00 [facility] Height 2015-02-16 20:42:00 152.4 cm [facility] Respitory Rate 2013-12-25 19:27:00 [facility] Heart Rate 2013-12-25 19:27:00 [facility] Diastolic (mm Hg) 2013-12-25 19:27:00 [facility] Systolic (mm Hg) 2013-12-25 19:27:00 Eleazar [facility] Temperature Oral (F) 2013-12-25 19:27:00 98.3 F [facility] BMI Calculated 2013-12-25 16:48:00 [facility] Weight 2013-12-25 16:48:00 [facility] Height 2013-12-25 16:48:00 152.4 cm [facility] Respitory Rate 2013-12-25 16:48:00 [facility] Heart Rate 2013-12-25 16:48:00 [facility] Diastolic (mm Hg) 2013-12-25 16:48:00 [facility] Systolic (mm Hg) 2013-12-25 16:48:00 Eleazar [facility] Temperature Oral (F) 2013-12-25 16:48:00 98.8 F [facility] Heart Rate 2013-12-23 00:27:00 [facility] Systolic (mm Hg) 2013-12-23 00:27:00 [facility] Respitory Rate 2013-12-23 00:27:00 [facility] Temperature Oral (F) 2013-12-23 00:27:00 98.3 F [facility] Diastolic (mm Hg) 2013-12-23 00:27:00 [facility] Diastolic (mm Hg) 2013-12-22 23:06:00 [facility] Temperature Oral (F) 2013-12-22 23:06:00 98.4 F [facility] Systolic (mm Hg) 2013-12-22 23:06:00 [facility] Respitory Rate 2013-12-22 23:06:00 [facility] Heart Rate 2013-12-22 23:06:00 [facility] Weight 2013-12-22 20:46:00 [facility] Temperature Oral (F) 2013-12-22 20:46:00 98.7 F [facility] Systolic (mm Hg) 2013-12-22 20:46:00 [facility] Diastolic (mm Hg) 2013-12-22 20:46:00 [facility] Respitory Rate 2013-12-22 20:46:00 [facility] Heart Rate 2013-12-22 20:46:00 [facility] Diastolic (mm Hg) 2013-12-17 20:30:00 [facility] Respitory Rate 2013-12-17 20:30:00 [facility] Systolic (mm Hg) 2013-12-17 20:30:00 Ele[facility] Systolic (mm Hg) 2013-12-17 19:06:00 [facility] Diastolic (mm Hg) 2013-12-17 19:06:00 [facility] Respitory Rate 2013-12-17 19:06:00 [facility] Systolic (mm Hg) 2013-12-17 18:54:00 Eleazar [facility] Diastolic (mm Hg) 2013-12-17 18:54:00 [facility] Temperature Oral (F) 2013-12-17 17:09:00 98.1 F [facility] Respitory Rate 2013-12-17 16:50:00 [facility] Temperature Oral (F) 2013-12-17 09:00:00 97.1 F [facility] Height 2013-12-17 02:58:00 152.4 cm [facility] Weight 2013-12-17 02:58:00 [facility] BMI Calculated 2013-12-17 02:58:00 [facility] Temperature Oral (F) 2013-12-17 02:55:00 98.1 F [facility] Height 2013-12-16 17:19:00 152.4 cm [facility] BMI Calculated 2013-12-16 17:19:00 [facility] Weight 2013-12-16 17:19:00 [facility] Heart Rate 2013-12-16 17:19:00 [facility] Temperature Oral (F) 2013-11-08 21:00:00 98 F [facility] Diastolic (mm Hg) 2013-11-08 21:00:00 [facility] Respitory Rate 2013-11-08 21:00:00 [facility] Systolic (mm Hg) 2013-11-08 21:00:00 [facility] Temperature Oral (F) 2013-11-08 19:13:00 97.6 F [facility] Diastolic (mm Hg) 2013-11-08 19:13:00 [facility] Systolic (mm Hg) 2013-11-08 19:13:00 [facility] Respitory Rate 2013-11-08 19:13:00 [facility] Systolic (mm Hg) 2013-11-08 16:18:00 [facility] Respitory Rate 2013-11-08 16:18:00 [facility] Diastolic (mm Hg) 2013-11-08 16:18:00 [facility] Temperature Oral (F) 2013-11-08 11:34:00 99.0 F [facility] Heart Rate 2013-11-08 11:34:00 [facility] Heart Rate 2013-11-08 08:04:00 [facility] BMI Calculated 2013-11-08 04:51:00 [facility] Height 2013-11-08 04:51:00 152.4 cm [facility] Weight 2013-11-08 04:51:00 [facility] Heart Rate 2013-11-08 04:51:00 [facility] Procedures Procedure Date / Time Performing Clinician Source Performed Cardiac catheterization [facility] procedure Stent placement<sup>1</sup> [facility] Plan of Care Planned Activity Planned Date Details Comments Source Future Scheduled Test 2020-05-29 IMM Influenza Seasonal [facility] 00:00:00 May to October (>/= 19 yrs) [code = IMM Influenza Seasonal May to October (>/= 19 yrs)] Future Scheduled Test 2015 IMM Pneumococcal Age 65 [facility] 00:00:00 and Up [code = IMM Pneumococcal Age 65 and Up] Future Scheduled Test 2000 Screening for malignant [facility] 00:00:00 neoplasm of colon (procedure) [code = 932202175] Future Scheduled Test 1990 Breast Cancer Scrn [facility] 00:00:00 (Yearly) [code = Breast Cancer Scrn (Yearly)] Future Scheduled Test 1966 COVID-19 Vaccine (1 of [facility] 00:00:00 2) [code = COVID-19 Vaccine (1 of 2)] Encounters Start End Encounter Admission Attending Care Care Encounter Source Date/Time Date/Time Type Type Clinicians Facility Department ID 2020-10-15 2020-10-15 Emergency [facility] [id number] 02:02:00 04:45:00 Ciaran Freitas [id number] [place] [id number] [place] [id number] 2020-01-21 2020-01-21 Outpatient E [id number] 05:31:00 05:31:00 2019-10-15 2019-10-15 Emergency E [id number] [facility] 13:12:00 13:12:00 2019-05-20 2019-05-20 Emergency E [id number] 15:19:00 15:19:00 2019-02-25 2019-02-25 Emergency E [facility] [id number] 10:56:00 10:56:00 2018-08-21 2018-08-21 Emergency [facility] [id number] [place] 18:32:58 18:32:58 Health 2018-08-21 2018-08-21 Emergency [facility] [id number] [place] 17:47:59 17:47:59 Health 2018-08-21 2018-08-21 Emergency [facility] [id number] [place] 16:16:06 16:16:06 Health 2018-08-16 2018-08-16 Emergency [facility] [id number] [place] 22:04:00 22:04:00 [facility] 2018-08-16 2018-08-16 Emergency [facility] [id number] [place] 21:21:42 21:21:42 [facility] 2018-05-18 2018-05-18 Emergency [facility] MED [id number] [place] 14:51:52 14:51:52 [facility] 2018-03-08 2018-03-08 Emergency [facility] MED [id number] [place] 15:12:17 15:12:17 [facility] 2018-01-16 2018-01-16 Emergency [facility] MED [id number] [place] 17:53:03 17:53:03 [facility] 2018-01-16 2018-01-16 Emergency [facility] [id number] [place] 00:00:00 00:00:00 [facility] 2018-01-16 2018-01-16 Outpatient [facility] [id number] [place] 00:00:00 00:00:00 [facility] 2017-11-11 2017-11-11 Emergency E [facility] MED [id number] [facility] 16:37:00 16:37:00 2017-01-19 2017-01-19 Outpatient Patel, [facility] [id number] 12:18:00 18:37:00 Mac Bond 2017-01-16 2017-01-16 Outpatient Chayito, [facility] [id number] 18:22:00 21:34:00 Jl 33 Juliánum[place] 2016-11-28 2016-11-28 Outpatient Ace, [facility] [id number] 19:17:00 23:13:00 Skinnyah 32 Melody 2016-11-06 2016-11-06 Outpatient Elijah, [facility] [id number] 17:34:00 21:03:00 Zaki 31 [place] 2016-10-10 2016-10-11 Outpatient Cinthya, [facility] [id number] 11:45:00 13:54:00 Bambivivienne Read 30 2016-09-14 2016-09-15 Outpatient Emmanuel, [facility] [id number] 21:19:00 00:56:00 Nando Lozada 29 2016-04-13 2016-04-14 Outpatient Frandy [facility] [id number] 21:11:00 01:37:00 Jose Tripathi 2016-03-11 2016-03-12 Outpatient Mihai, [facility] [id number] 14:41:00 15:25:00 Andrea Marino 2016-03-05 2016-03-05 Outpatient Rina, [facility] [id number] 16:54:00 21:21:00 Rachele 26 [place] 2016-02-29 2016-02-29 Outpatient Bayron, [facility] PL [id number] 17:25:00 20:29:00 Good 25 2015-09-03 2015-09-05 Outpatient Mateus Dixon [facility] [id number] 21:30:00 10:26:00 B 24 2015-07-15 2015-07-16 Outpatient Anjel, [facility] [id number] 12:00:00 15:30:00 Janet 23 2015-07-04 2015-07-05 Outpatient Dick, [facility] [id number] 22:07:00 01:09:00 Habacuc 22 Breen 2015-07-04 2015-07-04 Outpatient Recio, [facility] [id number] 11:57:00 14:54:00 Maribel Berkowitz 21 2015-06-03 2015-06-04 Outpatient Ware, [facility] [id number] 23:00:00 02:09:00 Luzmaria 20 Aliya 2015-05-18 2015-05-18 Outpatient Rileypaola, [facility] [id number] 11:55:00 18:04:00 Indira S 19 2015-05-09 2015-05-09 Outpatient Jennifer, [facility] [id number] 12:15:00 15:10:00 Indira S 18 2015-05-02 2015-05-02 Outpatient Jennifer, [facility] [id number] 13:18:00 19:05:00 Indira S 17 2015-04-11 2015-04-11 Outpatient Yovani [facility] [id number] 11:25:00 14:47:00 Gilmar Giordano 16 2015-03-30 2015-03-30 Outpatient Charito, [facility] [id number] 14:39:00 17:11:00 Isatu Ayala 2015-03-21 2015-03-24 Outpatient Richmond, [facility] [id number] 13:24:00 17:30:00 Catarino 14 Blaine 2015-03-11 2015-03-11 Outpatient Dick, [facility] [id number] 14:43:00 17:41:00 Habacuc 13 Breen 2015-03-05 2015-03-05 Outpatient Tata Rushing [facility] [id number] 00:43:00 05:21:00 Martell 12 2015-02-24 2015-02-25 Outpatient Dixon, [facility] [id number] 10:34:00 20:14:00 Tucker 11 2015-02-16 2015-02-18 Outpatient Thu, [facility] [id number] 15:36:00 16:00:00 Kalneerua 10 Mary Katedonna 2013-12-25 2013-12-25 Outpatient Dorothea, [facility] [id number] 11:37:00 14:52:00 Rishabh Gold 09 2013-12-22 2013-12-22 Outpatient Nba, [facility] [id number] 15:43:00 19:29:00 Jann 08 Jl 2013-12-16 2013-12-17 Outpatient Beth, [facility] [id number] 12:18:00 17:45:00 Alvarez 07 2013-11-07 2013-11-08 Outpatient Jazmin, [facility] [id number] 23:50:00 18:00:00 Dustin Results Test Description [...] Negative (01/19/17 [facility] 19:21:00 2:21 PM) [facility] URINE AND STOOL 2017-01-19 Negative (01/19/17 Me morial 19:21:00 2:21 PM) [facility] URINE AND STOOL 2017-01-19 Negative (01/19/17 Me morial 19:21:00 2:21 PM) [facility] [place] URINE AND STOOL 2017-01-19 1 [facility] 19:21:00 [facility] [place] URINE AND STOOL 2017-01-19 1 [facility] 19:21:00 [facility] URINE AND STOOL 2017-01-19 7.0 [facility] 19:21:00 [facility] URINE AND STOOL 2017-01-19 1.008 [facility] 19:21:00 [facility] URINE AND STOOL 2017-01-19 Clear (01/19/17 2:21 [facility] 19:21:00 PM) [facility] CARDIAC ENZYMES 2017-01-19 3.0 [facility] 18:07:00 [facility] CARDIAC ENZYMES 2017-01-19 <0.02 [facility] 18:07:00 [facility] CHEM PANEL 2017-01-19 231 [facility] 18:07:00 [facility] CHEM PANEL 2017-01-19 9 [facility] 18:07:00 [facility] CHEM PANEL 2017-01-19 8.4 [facility] 18:07:00 [facility] CHEM PANEL 2017-01-19 1.0 [facility] 18:07:00 [facility] CHEM PANEL 2017-01-19 3.6 [facility] 18:07:00 [place] CHEM PANEL 2017-01-19 7 [facility] 18:07:00 [facility] CHEM PANEL 2017-01-19 32 [facility] 18:07:00 [place] CHEM PANEL 2017-01-19 104 [facility] 18:07:00 [facility] CHEM PANEL 2017-01-19 3.4 [facility] 18:07:00 [facility] CHEM PANEL 2017-01-19 141 [facility] 18:07:00 [facility] CHEM PANEL 2017-01-19 0.79 [facility] 18:07:00 [facility] CHEM PANEL 2017-01-19 3.6 [facility] 18:07:00 [place] CHEM PANEL 2017-01-19 9.1 [facility] 18:07:00 [place] CHEM PANEL 2017-01-19 25 [facility] 18:07:00 [place] CHEM PANEL 2017-01-19 7.2 [facility] 18:07:00 [facility] CHEM PANEL 2017-01-19 1.1 [facility] 18:07:00 [place] CHEM PANEL 2017-01-19 111 [facility] 18:07:00 [place] CHEM PANEL 2017-01-19 31 [facility] 18:07:00 [facility] CHEM PANEL 2017-01-19 90 [facility] 18:07:00 [facility] CHEM PANEL 2017-01-19 73 [facility] 18:07:00 [place] CHEM PANEL 2017-01-19 75 [facility] 18:07:00 [facility] HEMATOLOGY 2017-01-19 18:07:00 Test Item Value Reference Range Interpretation Comme nts PTT (test code = PTT) 31.3 s 22.9-35.8 [facility] [id number] 18:07:008.5[facility] 2017-01-19 18:07:0042.0[facility] XbmhocxCZPHAOSLXL2889-14-25 18:07:004.92[facility] ZdxqpvlFCIRRPOCMW8084-54-68 18:07:0014.4[facility] CvwdirgMEYZXIYBWW1458-91-86 18:07:0014.2[facility] DjmhhsrGZLBPXQWYW3722-43-19 18:07:85720Nofjajxf [place] AMIFGCYCJE8526-23-16 18:07:0034.2[facility] NavhjjoDIXHOVLKKU4263-39-40 18:07:00 Test Item Value Reference Range Interpretation Comments MCH (test code = MCH) 29.2 pg 27.0-31.0 [facility] CqgilobISKWXZGLVJ1935-57-16 18:07:0085.5[facility] 2017-01-19 18:07:007.7[facility] JaradfwQTWTHJUCDK1805-52-37 18:07:00 Test Item Value Reference Range Interpretation Comments PT (test code = PT) 13.7 s 12.0-14.7 [facility] RtrzheySCEONQZYYT9833-30-58 18:07:001.03[facility] 2017-01-19 18:07:000.3[facility] XlcafboFGAPXOCAQE2748-10-36 18:07:0068.3[facility] WwjptoaHWVHVKQFSY9763-46-62 18:07:000.6[facility] XdhqalcCSAWDHSEDB1181-59-08 18:07:005.3[facility] DxqzfbuYOPOHUGPZP3223-05-59 18:07:004.5[facility] RIMJZQJZUY3972-32-57 18:07:000.6[facility] JbtiupnIQZYJICGYF3682-09-28 18:07:001.4 [facility] BtwbfjbXHBWEIOAPT6998-39-42 18:07:007.8[facility] 2017-01-19 18:07:0018.8[facility] [id number] 00:23:00Positive *ABN*(01/16/17 7:23 PM)[facility] [id number] 00:23:00Negative *NA*(01/16/17 7:23 PM)[facility] [id number] 00:23:00Negative *NA*(01/16/17 7:23 PM)[facility] [id number] 00:23:00Negative *NA*(01/16/17 7:23 PM)[facility] FMPKQQ5710-68-22 00:23:00See Note (01/16/17 7:23 PM)[facility] [id number] 00:23:00Negative *NA*(01/16/17 7:23 PM)[facility] [id number] 00:23:00Negative *NA*(01/16/17 7:23 PM)[facility] [id number] 00:23:00Negative *NA*(01/16/17 7:23 PM)[facility] [id number] 00:23:00Negative *NA*(01/16/17 7:23 PM)[facility] [id number] 00:23:00Negative *NA*(01/16/17 7:23 PM)[facility] [id number] 00:23:00Negative (01/16/17 7:23 PM)[facility] [id number] 00:23:00Negative (01/16/17 7:23 PM)[facility] [id number] 00:23:00Negative (01/16/17 7:23 PM)[facility] PSXSF4329-24-49 00:23:001.0[facility] [id number] 00:23:00Negative (01/16/17 7:23 PM)[facility] [id number] 00:23:00Slight Cloudy (01/16/17 7:23 PM)[facility] [id number] 00:23:00 Test Item Value Reference Range Interpretation Comments UA Spec Grav (test code = UA Spec 1.007 1 Grav) [facility] [id number] 00:23:00 Test Item Value Reference Range Interpretation Comments UA pH (test code = UA pH) 6.0 1 5.0-8.0 [facility] [id number] 00:23:00Negative (01/16/17 7:23 PM) [facility] [id number] 00:23:00Yellow *NA*(01/16/17 7:23 PM) [facility] [id number] 23:57:00<0.02[facility] CARD[facility]AC [id number] 23:57:002.0[facility] [id number] 23:57:64312Iucsnjjq [facility]annCARD[facility]AC [id number] 23:57:001.0[facility] CHEM [id number] 23:57:0073[facility] [id number] 23:57:0029 [facility] [id number] 23:57:61045Depfiobl HermannCHEM PANEL 2017-01-16 23:57:67313Liqtwwlx HermannCHEM [id number] 23:57:0015[facility] [id number] 23:57:0011.0[facility] [id number] 23:57:0016[facility] [id number] 23:57:009.4[facility] [id number] 23:57:000.94[facility] [id number] 23:57:33169 [facility] [id number] 23:57:004.0[facility] PANEL 2017-01-16 23:57:003.6[facility] [id number] 23:57:0024[facility] [id number] 23:57:000.6[facility]annCHE[facility] [id number] 23:57:22562Onjlklkz HermannCHEM [id number] 23:57:0029[facility]annCHE[facility] YINBM0197-10-36 23:57:000.9[facility]annCHEM BZJYB9975-74-24 23:57:003.9 [facility]annCHEM SKTKK7248-45-92 23:57:007.5[facility]annHEMATOLOGY 2017-01-16 23:57:0014.6[facility] TcfpnniJYEPYQRSRW9247-07-21 23:57:0042.7[facility] MupcgraRDWAIDRGWA2249-14-13 23:57:0034.2[facility] LxiedraDCCXAKBUBN1780-89-25 23:57:0085.3[facility] PgdggclRDWAJVBUSU1723-42-85 23:57:00 Test Item Value Reference Range Interpretation Comments MCH (test code = MCH) 29.2 pg 27.0-31.0 [facility] AekapjmEYBFKSYVOL8724-11-94 23:57:0014.3[facility]annHEMATOLOGY 2017-01-16 23:57:53983Fhrigdjz MkizvhrFFUJWUDZLG6927-81-43 23:57:008.0[facility] OtgntiiNBUUHNSIZY2718-91-73 23:57:006.6[facility] GamtrbzNKKUTWMJUL3929-76-79 23:57:005.00[facility] LpdxcamCVFALDSMXD7146-88-34 23:57:000.8[facility] EOPYXDEANU1780-40-39 23:57:004.0[facility] SzprjxwJLUOKTXYXK4030-01-10 23:57:000.5 [facility] LnajxfvZIMMPQOLRG6617-24-66 23:57:000.1[facility]annHEMATOLOGY 2017-01-16 23:57:001.8[facility] AlfcuyaHPXPPPIZCD4266-02-59 23:57:000.2[facility] KsobqttIIBEZGNAQF7982-76-60 23:57:0060.6[facility] KlljpfdQQIFQPDCYV7358-05-93 23:57:008.3[facility] DyjrbxeTKNEQUAORH2624-03-32 23:57:003.5[facility] SKDGWQRVWZ8262-67-44 23:57:0026.8[facility]annUR[facility] AND HFKXS8350-17-65 02:18:00Negative *NA*(11/28/16 9:18 PM)[facility] CTNTD1713-29-53 02:18:00Negative (11/28/16 9:18 PM)[facility] OFJGJ0021-26-64 02:18:001.0[facility] UTVYR4481-13-09 02:18:00Negative (11/28/16 9:18 PM)[facility] FDMFH4851-86-48 02:18:00Negative *NA*(11/28/16 9:18 PM)[facility] XPDND6419-56-24 02:18:00Moderate *ABN*(11/28/16 9:18 PM)[facility] CJLOX0240-74-74 02:18:00Yellow *NA*(11/28/16 9:18 PM)[facility] PPNWA6828-62-53 02:18:00 Test Item Value Reference Range Interpretation Comments UA pH (test code = UA pH) 6.0 1 5.0-8.0 [facility] RJOYF0538-02-82 02:18:00Negative (11/28/16 9:18 PM) [facility] HAFAQ9343-67-21 02:18:00Negative (11/28/16 9:18 PM) [facility] TYYGU1659-72-27 02:18:00<=1.005 *NA*(11/28/16 9:18 PM)[facility] XWYPA4121-84-67 02:18:00Clear (11/28/16 9:18 PM) [facility]annCARDIAC CTUEKVJ4584-74-68 01:37:00<0.02[facility] CARDIAC TALLRUE9718-79-15 01:37:001.3[facility]annCARDIAC ZULUUGF5486-77-44 01:37:0089[facility]AC LRZJGKX7434-81-77 01:37:001.5[facility] CHEM ATPYP2151-67-52 01:37:003.9[facility]annCHEM MGRGU1981-48-94 01:37:0050 [facility]annCHE[facility] SIGKM9768-81-41 01:37:000.9[facility]annCHEM PANEL 2016-11-29 01:37:0024[facility]annCHE[facility] IHKWD1761-53-47 01:37:003.7[facility]annCHEM NAICW2307-59-82 01:37:0089[facility]annCHE[facility] KZXYO6547-78-88 01:37:42897[place] HermannCHEM ZUDTR8292-13-96 01:37:0010[facility]annCHEM WVFVZ1337-89-98 01:37:001.28[facility]annCHE[facility] MKICR3822-35-78 01:37:0030 [facility]CHE[facility] QTJJI7365-23-04 01:37:94589Rennwozk HermannCHEM PANEL 2016-11-29 01:37:009.5[facility]annCHEM QQCJY7239-01-30 01:37:009.5[facility]annCHEM BAAZL4641-69-91 01:37:008[facility]annCHE[facility] QCWVX0384-70-50 01:37:000.7[facility]annCHEM QURGF5285-80-15 01:37:15933Ktdojoha HermannCHEM FWLHP4338-37-38 01:37:003.5[facility]annCHEM UYCTY7000-71-66 01:37:007.6 [facility]annCHE[facility] CKFOA2007-40-58 01:37:0014[facility]annHEMATOLOGY 2016-11-29 01:10:0033.4[facility] ZgygwkuJNEGIGICSC9254-58-44 01:10:50403Pqcjdyqq EgscsetOFOXMUVVDY5403-54-50 01:10:0014.7[facility] DccyowmAOPUZTEXGK3043-40-81 01:10:008.1[facility] YsulcpfBBOLROTMOD2574-93-76 01:10:005.34[facility] MMOSZOHEGJ0763-63-63 01:10:0015.5[facility] XoddxzmSKKOQRZQRY6010-86-35 01:10:00 87.0[facility] WjsvrzePKINAQOEVZ5822-63-98 01:10:0046.4[facility]annHEMATOLOGY 2016-11-29 01:10:00 Test Item Value Reference Range Interpretation Comments MCH (test code = MCH) 29.1 pg 27.0-31.0 [facility] UakbzfeIXGRZVLIGV2841-28-20 01:10:008.0[facility]annHEMATOLOGY 2016-11-29 01:10:000.1[facility] BwrobnaEQHGSTYRDZ6859-74-98 01:10:002.0[facility] KmjkngdYXJTVBEZCE2759-74-57 01:10:005.1[facility] QanitwiPHDYDLNYFV2130-58-42 01:10:000.2[facility] YhryscsPYLYYUUVKB0318-07-35 01:10:000.8[facility] DBWRGXEYWN1280-58-92 01:10:0063.2[facility] EnirgexLDIMRVEQPL8260-30-93 01:10:00 24.3[facility] JmaddnuIRFSFQNRWB6404-51-46 01:10:002.1[facility]annHEMATOLOGY 2016-11-29 01:10:009.6[facility] GtafaplPPCLFIVOZU4336-32-00 01:10:000.8[facility] HermannVIRAL - MIQKBIIW7984-65-26 01:10:00Negative (11/28/16 8:10 PM)[facility]annVIRAL - UASQYXPM1955-90-85 01:10:00Negative (11/28/16 8:10 PM)[facility]annCARDIAC KVAODAN5516-05-41 01:15:001.3[facility]annCARDIAC ENZYMES 2016-11-07 01:15:00<0.02[facility]annCARDIAC OYADZPN6063-92-55 01:15:001.9 [facility]annCARDIAC NVVYQVS1096-70-64 01:15:34256Teglapkm HermannCHEM PANEL 2016-11-07 01:15:0077[facility]annCHEM FFSWW2851-91-92 01:15:0017[facility]annCHEM SGJWF3382-77-14 01:15:006.8[facility]annCHEM CJDTZ1191-03-64 01:15:008.5[facility]annCHEM DMTFL8330-05-72 01:15:000.8[facility]annCHEM FPSUB9931-23-69 01:15:73929Dkzdnaoc HermannCHEM LWPMR3588-81-31 01:15:0031 [facility]annCHE[facility] IECSI9204-06-14 01:15:003.1[facility]annCHEM PANEL 2016-11-07 01:15:000.90[facility]annCHEM CLCEV4873-19-32 01:15:19941Lmbqlxqz HermannCHEM CIZCO7779-55-44 01:15:0012[facility]annCHEM ZNYGA0934-44-18 01:15:0096[facility]annCHEM ORYGZ7460-93-13 01:15:003.3[facility]annCHEM WKDWE5020-32-14 01:15:0076[facility]annCHEM KWUGR6767-02-95 01:15:0020 [facility]annCHE[facility] KIQXF2719-01-67 01:15:003.5[facility]annCHEM PANEL 2016-11-07 01:15:000.9[facility]annCHEM WUPOQ9326-25-23 01:15:0010.1[facility]annCHEM RCERL5466-01-09 01:15:0013[facility] FcyfpfuDJXESTIWMY6822-59-86 01:15:002.8[facility] OhjvdeaYXFFGVXCAI7043-71-77 01:15:000.2[facility] UMLJXJHNHU2162-59-46 01:15:000.1[facility] IltpxgzITVSMKNSPJ1074-42-18 01:15:000.7 [facility] NfizvpxQZNIZRUODH4342-11-75 01:15:000.8[facility] HermannHEMATOLOGY 2016-11-07 01:15:004.5[facility] XdjgdmcYJGKOYUXFM4088-80-69 01:15:002.2[facility] CipyevnJUPWEFAVHL2789-47-99 01:15:0058.5[facility] UijnhnzNCWPNAXGBP9742-91-12 01:15:0028.8[facility] TjtwjgxHEKVPCKBAE5522-45-38 01:15:009.1[facility] ADUKTKTGYA4124-31-33 01:15:27763Vwqqnrvj UmuyongOHMCPZJNIZ7327-13-33 01:15:00 14.3[facility] WnwpbwvBXBRIKIWAL2103-71-76 01:15:008.1[facility]annHEMATOLOGY 2016-11-07 01:15:007.7[facility] NcmjpdoEZXEDVGLZT8899-09-89 01:15:0013.1[facility] PgzvfqjUKNJXIKMJE0311-05-64 01:15:004.48[facility] NqxuyusUCKLJJNZII2182-65-21 01:15:00 Test Item Value Reference Range Interpretation Comments MCH (test code = MCH) 29.3 pg 27.0-31.0 [facility] HckormhKQHZIZSBCP6685-94-60 01:15:0039.1[facility] HermannHEMATOLOGY 2016-11-07 01:15:0087.3[facility] ParhbktGZMNZWDRRW6594-90-52 01:15:0033.6[facility] HermannDRUG VJYFRQ1561-24-24 11:24:00Negative *NA*(10/11/16 5:24 AM)[facility]annDRUG GFGVNU4944-70-93 11:24:00Negative *NA*(10/11/16 5:24 AM)[facility]annDRUG MUKGBZ0039-96-71 11:24:00Negative *NA*(10/11/16 5:24 AM)[facility]annDR[facility] CLVQHV2748-80-94 11:24:00Negative *NA*(10/11/16 5:24 AM)[facility]annDR[facility] XTFKCC4969-42-42 11:24:00Positive *ABN*(10/11/16 5:24 AM)[facility]annDR[facility] LXNBLL2680-36-05 11:24:00See Note (10/11/16 5:24 AM)[facility] DRUG NLGKBS1350-09-06 11:24:00Negative *NA*(10/11/16 5:24 AM)[facility]annDR[facility] TCEUDC7311-65-72 11:24:00Negative *NA*(10/11/16 5:24 AM)[facility]annCARDIAC DUQGLJV7096-67-46 09:58:00<0.02[facility] MlakthsKSHMSRVYHN2505-47-57 09:58:00 0.4[facility] SfjfizlMUSDIOWJIJ7939-47-13 09:58:000.1[facility]annHEMATOLOGY 2016-10-11 09:58:006.3[facility] IfwbqnuXLHSUDFOQR6065-35-24 09:58:001.0[facility] LihjvrdUZDVQHVCRF8091-66-06 09:58:002.7[facility] OwdkborHHKDCNSTWT4560-59-12 09:58:002.1[facility] GypdxuwCARFGWWCLO0725-62-79 09:58:000.6[facility] XVKLCEOKHI5896-42-49 09:58:0036.3[facility] JvdwauwRPLIZNLKBL6388-01-10 09:58:00 46.0[facility] UtikmndDQQPOADRHN4282-87-33 09:58:0010.4[facility]annHEMATOLOGY 2016-10-11 09:58:008.7[facility] XdlvmgmXSQHZCFJUS0071-83-50 09:58:56079Awqzeaej KhysyjzZCDSYLMOQI4583-10-31 09:58:00 Test Item Value Reference Range Interpretation Comments MCH (test code = MCH) 29.3 pg 27.0-31.0 [facility] RatsgvqENNOODYSWZ4034-15-41 09:58:0087.2[facility] HermannHEMATOLOGY 2016-10-11 09:58:0014.4[facility] InarryxNZSTSRBEYG2303-66-19 09:58:0033.6[facility] SqitvojFQVTABHVBU1016-93-67 09:58:0013.1[facility] TxuxhzeIKWHCQZFOR8922-64-33 09:58:004.45[facility] GpncktgYLMCYTZDLM2431-42-98 09:58:0038.8[facility] SDGZPWRBOW6020-45-54 09:58:005.8[facility] BqjquvfWDHQFH7912-37-74 09:58:002.84 [facility] JtneejyLGERER4132-15-66 09:58:0014[facility] YzwdckaXGAQEI1933-71-43 09:58:0087[facility] QmhprznWRGTVI4412-12-54 09:58:0071[facility] HermannLIPIDS 2016-10-11 09:58:31191Nxosxdqn ClvrllmPMCWME7017-11-12 09:58:0055[facility]annCARDIAC ZTGOICY0408-94-39 00:00:00<0.02[facility]annCARDIAC ENZYMES 2016-10-10 19:10:33<0.02[facility] HermannCHEM HFQWR5475-66-91 19:10:3392 [facility]annCHEM YISVD9530-85-39 19:10:338[facility]annCHEM PANEL 2016-10-10 19:10:330.78[facility] HermannCHEM NHBKD5955-46-99 19:10:79356Rvdlywwq HermannCHEM CWWHR7085-55-66 19:10:333.2[facility] HermannCHEM DOSIO4066-00-66 19:10:339.3[facility] HermannCHEM TFSCD9372-43-86 19:10:3331[facility]annCHEM UGROY6459-81-28 19:10:93631Vdoskpfn HermannCHEM TGXFW3182-24-13 19:10:12963 [facility]annCHEM EYRUL0958-24-45 19:10:337.2[facility] HermannHEMATOLOGY 2016-10-10 19:10:3333.8[facility] HioylriLJUIFXUCLY9389-34-90 19:10:3314.2[facility] BwlvwxfKIJPTUADUQ4497-63-09 19:10:33 Test Item Value Reference Range Interpretation Comments MCH (test code = MCH) 29.4 pg 27.0-31.0 [facility] BaoanjvPDHYVMEMUE7411-82-22 19:10:3387.0[facility] HermannHEMATOLOGY 2016-10-10 19:10:3313.5[facility] PyhupifGAABBVYVFO5305-01-55 19:10:3339.8[facility] WhddhdwLYVWPXRXYE4926-56-63 19:10:44985Ugzenvew NxnlvuhSUOYHLPFLI8301-50-22 19:10:338.7[facility] ZzdwtfwWTDWJAAKAS1772-05-44 19:10:336.6[facility] IOBWETTSCN2770-00-65 19:10:334.58[facility] IodfskyWPDYBQFQTI2360-17-28 19:10:33 1.8[facility] KlimiiwOLHABQNWVM8076-60-28 19:10:330.6[facility] HermannHEMATOLOGY 2016-10-10 19:10:330.3[facility] ByephazHHNQICQLGZ8258-99-70 19:10:330.6[facility] LzjjiziVNYWRNCMAC0512-30-68 19:10:333.9[facility] UpgttaiAMBPBORVMR3131-51-76 19:10:339.0[facility] NcrrxftSXQDAUKAYC0835-79-07 19:10:334.1[facility] RXXFFXRHAQ1880-39-13 19:10:3359.5[facility] OcxjowmOLVIKQNIFM7189-20-08 19:10:33 26.8[facility] HermannCARDIAC FJHVOLC3248-42-97 04:07:00<0.02[facility] XXZYOIFJHPYW9596-36-41 04:07:0013.5[facility] DdebszzUWXYLGPEZYNL9008-06-04 04:07:0079[facility] NwqvsjbZGMPKOKKZLAN7734-56-67 04:07:000.89[facility] ZKTIHTPWNPPX1298-25-23 04:07:009[facility] OpmjdfoWGQMJEEXOJXJ0452-13-39 04:07:00 72[facility] TcwsquiJMUMSWOQHIBI7546-85-13 04:07:76985Oxtwptar HermannELECTROLYTES 2016-04-14 04:07:0025[facility] WernwexBQVDZAYVEXUA1229-27-47 04:07:008.9[facility] IzpbeehNVKLQSWWANCV2515-76-61 04:07:85941Wsgjevvo OrgyhipGRUIYZSACBLL2389-35-41 04:07:003.5[facility] WleflqmHZVZYFSBZQ2583-39-97 04:07:06351Ufhlvosy [place] UQQSVJSWXB5793-75-70 04:07:008.5[facility] QhceycvUFTLSQXMPW6832-40-94 04:07:00 33.5[facility] AobfljuKEOGNVIXBP7402-06-86 04:07:00 Test Item Value Reference Range Interpretation Comments MCH (test code = MCH) 28.7 pg 27.0-31.0 [facility] SonoqjkWIDUKHCBLD4906-43-38 04:07:0015.0[facility] HermannHEMATOLOGY 2016-04-14 04:07:0038.3[facility] ZlpcavnNWGGEYGPNL0510-59-20 04:07:0085.6[facility] MjwklekONXDBTTOSR3889-54-48 04:07:0012.9[facility] NuzznmkIOIAWMBCJE9167-45-15 04:07:004.48[facility] DtnnspuREAABXLDGD2468-81-92 04:07:005.6[facility] BYXLJWTCZN1444-32-54 04:07:000.1[facility] DjvugihWUOVQSNVQA6814-36-68 04:07:002.2 [facility] FnwfphjTSXMZXQIBO4714-67-00 04:07:000.3[facility] HermannHEMATOLOGY 2016-04-14 04:07:000.5[facility] VvlggehXRBTCTSVVS6588-20-67 04:07:006.1[facility] RgdzwlfCIYKGYTEKP7772-57-09 04:07:001.1[facility] BtbicvpJJFBSXKKIZ5667-75-05 04:07:002.5[facility] PndrymyUZHLVDYFJF8273-75-54 04:07:0038.8[facility] BXLVHGYMYT7545-54-28 04:07:009.2[facility] PasvvcjLIWLXIPDVC0445-59-92 04:07:00 44.8[facility] WcvnvrtAHWELACIOF7719-22-42 04:07:008[facility] HermannTOXICOLOGY 2016-04-14 04:07:000.008[facility]annCARDIAC WHIEVKW8766-99-80 11:47:00 <0.02[facility] BypazrsCANBDY6760-16-98 11:47:003.39[facility] HermannLIPIDS 2016-03-12 11:47:0018[facility] McwqyrdWVIMJF5005-94-08 11:47:0073[facility] SUZIOA8146-76-53 11:47:0090[facility] DbmhsrfSPUXCR8529-51-05 11:47:73819Wnkkzqha OqjjzxxKPIWQH7812-97-05 11:47:0038[facility]annSPECIAL YWEXGGYOC3830-96-46 11:47:005.9[facility]annCARDIAC GUQZGRK1082-34-86 02:33:0081[facility] CARDIAC HCSSIGH0671-17-66 02:33:000.02[facility]annCARDIAC KHWFYQA3167-68-31 02:33:001.6[facility]annCARDIAC OQRYTXQ7970-73-78 02:33:001.3[facility] QSTGBEYYIH4262-48-25 21:03:00 Test Item Value Reference Range Interpretation Comments PROTIME (test code = PROTIME) 14.0 s 12.0-14.7 [facility] QzpdqbwBFGOHMNHHU1962-34-47 21:03:001.05[facility]annHEMATOLOGY 2016-03-11 21:03:00 Test Item Value Reference Range Interpretation Comments aPTT (test code = aPTT) 38.7 s 22.9-35.8 [facility] NiurxknZUKTSYSQXL9992-58-28 21:03:000.49[facility]annCARDIAC ENZYMES 2016-03-11 20:14:001.6[facility]annCARDIAC OQXYDMF5868-07-51 20:14:001.3 [facility]annCARDIAC OFQJOFS3618-63-67 20:14:00<0.02[facility] CARDIAC COAUALU2833-09-97 20:14:0083[facility]annCARDIAC JMKCATR4364-24-69 20:14:0050[facility] HermannCHEM JGYNV4997-62-71 20:14:72179Evrulifu HermannCHEM CCXJJ3852-63-97 20:14:10854Zvjjybio HermannCHEM HQYBI7179-22-85 20:14:002.8 [facility]annCHEM RTDXE3075-93-02 20:14:001.2[facility] HermannCHEM PANEL 2016-03-11 20:14:0015[facility]annCHEM MECJB1529-51-05 20:14:0010.4[facility] HermannCHEM JSXVL5536-90-71 20:14:0014[facility]annCHEM MFPNF0782-64-27 20:14:006.1[facility] HermannCHEM KNELI1847-19-74 20:14:000.5[facility] HermannCHEM WYAOP5917-46-56 20:14:007.7[facility] HermannCHEM KYZFM7825-33-03 20:14:0026 [facility]annCHEM MKHEB8337-14-31 20:14:00118Shwidush HermannCHEM PANEL 2016-03-11 20:14:003.4[facility] HermannCHEM XTDTA9076-73-77 20:14:32273Ynflfslz HermannCHEM GUZSO4057-22-43 20:14:000.61[facility] HermannCHEM PKGYF1186-73-25 20:14:009[facility]annCHEM LDXNP0870-56-91 20:14:0076[facility]annCHEM MZWES6999-49-73 20:14:0088[facility] HermannCHEM FXPYN4691-99-91 20:14:003.3 [facility]annCHEM OXKKT9489-45-01 20:14:0015[facility]annHEMATOLOGY 2016-03-11 20:14:001.8[facility] AjgnetyGEJSEXRNZK7230-89-81 20:14:000.5[facility] RmeoeqwNAIARLAZVX1967-50-94 20:14:001.0[facility] ZmhvvjmHHZCPYHDKV4990-12-88 20:14:004.1[facility] TlerxtjNVILLONGTY5579-20-14 20:14:000.2[facility] KQWDCZUYFF9492-70-66 20:14:000.1[facility] EdyisxvUOTVLJRZLC9668-66-56 20:14:00 61.4[facility] RtuchucPLKVEJWIOD7894-08-66 20:14:003.5[facility] HermannHEMATOLOGY 2016-03-11 20:14:0026.6[facility] HikryasNZTRQFYOIC0009-31-69 20:14:007.5[facility] DzecasdPMSZMEPNYB8653-84-98 20:14:006.7[facility] DicgaosVFKQXDFXAR7179-26-58 20:14:0012.2[facility] IapcedlYWTZVQZDYQ7017-19-57 20:14:004.26[facility] SODLOUDBTW4218-19-43 20:14:00 Test Item Value Reference Range Interpretation Comments MCH (test code = MCH) 28.7 pg 27.0-31.0 [facility] KmagquuJFAJZWTTPT1592-88-49 20:14:0086.0[facility] HermannHEMATOLOGY 2016-03-11 20:14:0014.9[facility] TdmhtazMRTYWDQILQ5291-88-56 20:14:0033.3[facility] YtgzzuvYZJOSDBFWQ7476-96-21 20:14:0036.6[facility] XdkdaymGVRWPBEOYX4149-01-05 20:14:008.7[facility] CpfdptbPNWZEOXXCN9665-54-93 20:14:59135Qkqzndpq HermannURINE AND UEHKW8722-07-50 20:14:00Negative (03/11/16 3:14 PM)[facility] SHRFR2259-14-16 20:14:00Negative (03/11/16 3:14 PM)[facility] NZXUL2871-10-10 20:14:00Negative (03/11/16 3:14 PM)[facility] FUHXZ0402-11-31 20:14:000.2[facility] AND PXAQQ4438-34-15 20:14:00 Clear (03/11/16 3:14 PM)[facility] GGKOW7005-42-82 20:14:00 Negative (03/11/16 3:14 PM)[facility] ARHCR5444-08-47 20:14:00 <=1.005 *NA*(03/11/16 3:14 PM)[facility] SYNOK1505-98-44 20:14:00 Test Item Value Reference Range Interpretation Comments UA pH (test code = UA pH) 6.5 1 5.0-8.0 [facility] ZJJFG6687-97-92 20:14:00Negative *NA*(03/11/16 3:14 PM) [facility] FIOLW5250-77-66 20:14:00Negative *NA*(03/11/16 3:14 PM) [facility] IOEUE4870-78-14 20:14:00Negative (03/11/16 3:14 PM) [facility] WZJIX2055-76-31 20:14:00Yellow *NA*(03/11/16 3:14 PM) [facility] JFGRJ5247-81-50 00:22:00Yellow *NA*(02/29/16 7:22 PM) [facility] HKWGS7085-48-27 00:22:00 Test Item Value Reference Range Interpretation Comments UA pH (test code = UA pH) 6.0 1 5.0-8.0 [facility] ARWQJ9518-74-78 00:22:00Clear (02/29/16 7:22 PM)[facility] EBSCW3454-88-67 00:22:00 Test Item Value Reference Range Interpretation Comments UA Spec Grav (test code = UA Spec 1.015 1 Grav) [facility] WPDJI9701-40-83 00:22:00Trace *ABN*(02/29/16 7:22 PM) [facility] UYXLW9346-61-67 00:22:00None Seen (02/29/16 7:22 PM) [facility] RVVNI4732-37-62 00:22:00Negative (02/29/16 7:22 PM) [facility] RCYLT0367-30-20 00:22:001.0[facility]UR[facility] CODAC8867-24-43 00:22:00Negative (02/29/16 7:22 PM)[facility] STOOL 2016-03-01 00:22:00Negative (02/29/16 7:22 PM)[facility] STOOL 2016-03-01 00:22:00Negative *NA*(02/29/16 7:22 PM)[facility] STOOL 2016-03-01 00:22:00Negative *NA*(02/29/16 7:22 PM)[facility] 2016-03-01 00:22:00Negative (02/29/16 7:22 PM)[facility] ENZYMES 2016-02-29 23:14:00<0.02[facility] YGYIMKP0315-70-29 23:14:001.1 [facility] XOFFJQA1976-98-94 23:14:91485Jplkptxm HermannCARDIAC XTQRUSD9007-05-03 23:14:007[facility] WHPTLXU5091-95-16 23:14:000.8 [facility]annCHE[facility] BSALD9711-08-93 23:14:0080[facility]annCHE[facility] PANEL 2016-02-29 23:14:0013[facility]annCHE[facility] ZSCSK9158-98-39 23:14:001.0[facility]annCHEM BKUNI2596-85-98 23:14:003.6[facility]annCHE[facility] CHRZI9631-48-12 23:14:009[facility]annCHE[facility] NXRAL9521-53-57 23:14:007.1[facility]annCHE[facility] MXFJR3581-75-19 23:14:0010.0[facility]annCHE[facility] VZXVR9999-34-51 23:14:50689 [facility]CHE[facility] AKWVN8071-23-40 23:14:003.0[facility]annCHEM PANEL 2016-02-29 23:14:000.88[facility]annCHEM RSYYH3880-06-05 23:14:0030[facility]annCHEM RHOMS1116-67-39 23:14:000.6[facility]annCHEM KUSOM6903-88-92 23:14:008.7[facility]annCHEM QKAIY3988-61-88 23:14:82692Rtzaertr HermannCHEM SDUBY3074-57-42 23:14:0015[facility]annCHE[facility] JAVJB9980-62-85 23:14:0088 [facility]CHE[facility] GNQRB7378-36-28 23:14:003.5[facility]annCHEM PANEL 2016-02-29 23:14:008[facility]annCHE[facility] ZBFGP9626-82-75 23:14:0089[facility] KnnabssWFXOLNOBTG3121-84-01 23:14:00 Test Item Value Reference Range Interpretation Comments PROTIME (test code = PROTIME) 13.2 s 12.0-14.7 [facility] AkwszatAEWKXLCCFN5780-11-29 23:14:000.97[facility]annHEMATOLOGY 2016-02-29 23:14:0015.3[facility] IutyqpdXPUIPYDXGO6388-37-95 23:14:0032.9[facility] CkxwrgoMASOIUEQGJ1003-24-31 23:14:0043.8[facility] CgvxthlLIJPXNUKHT6633-42-19 23:14:00 Test Item Value Reference Range Interpretation Comments MCH (test code = MCH) 28.1 pg 27.0-31.0 [facility] LwkihmlSXUOJYYOSZ2007-15-22 23:14:0085.5[facility]annHEMATOLOGY 2016-02-29 23:14:005.3[facility] MaagskbUQACSUYBQJ9055-52-20 23:14:0014.4[facility] PavkfxrZTMSWREEQQ9648-78-98 23:14:005.12[facility] IfbvjadLHAZSRTMXV9470-70-55 23:14:83752Pfnwrcbj EbqaianXRLLXOWQUM1355-26-78 23:14:008.1[facility] BLLTIUSLVQ8748-47-90 23:14:0057.2[facility] VpkjbdbTJQEBMXCHO3548-85-02 23:14:00 11.7[facility] MmnbdqiEHQVHPBBCL7757-81-16 23:14:0024.1[facility]annHEMATOLOGY 2016-02-29 23:14:000.1[facility] QzpsevgNCGTSFICOC8652-01-35 23:14:000.6[facility] NbtryzpZOOKRVRLKY4866-02-32 23:14:001.3[facility] HkjibawERGVCNQXUY9116-58-88 23:14:000.3[facility] CdqlhqvCCAQEWKJNW1999-62-27 23:14:003.0[facility] TNIYQLNYOP8921-10-08 23:14:005.9[facility] SsocmefDNZVHYWQDU1156-09-14 23:14:001.1 [facility]annCARDIAC XUAKBYV7897-32-78 17:04:000.7[facility]AC ZGYGEEW5587-71-41 17:04:000.7[facility]AC TSSFAGK3494-88-09 17:04:00 <0.02[facility]annCARDIAC JKMOJHU3110-60-16 17:04:0097[facility] XIJYCKQELBEX8239-76-53 17:04:0018.3[facility] NveovdzXIIYIMVZHFDM6568-52-40 17:04:0078[facility] ScugtlhHDOCCYYKWSPL7242-26-16 17:04:37624[place] NJROXHKGSUHV8631-62-46 17:04:0010[facility] YndllasLUVZISTQIOKF9818-34-01 17:04:00 0.90[facility] ZuyevfdHVVZSOAXLXGQ0682-64-07 17:04:0020[facility] NZRBFQSFCCMM3950-46-82 17:04:009.4[facility] YzehyqlUZXIABFVNRQV3797-12-47 17:04:004.3[facility] BpmjvzxUBMHSEQVOVDK5705-41-70 17:04:53873Omovryse Maciej PYMGCLTKUFKP1673-87-86 17:04:05387Boiojhwr RkptthjXOWAMZCSQU7155-76-68 17:04:00 9.6[facility] PbosuzxBUXWXFKDKP7176-48-22 17:04:0041.4[facility]annHEMATOLOGY 2015-09-04 17:04:0013.1[facility] CvymmsqVSMQJIIJQH2830-33-96 17:04:004.74[facility] JccrzhiYEUJPQIVJA1218-11-86 17:04:0087.3[facility] QrfjwhaGASPSECRLI3429-49-91 17:04:0031.5[facility] RbetpohKZFIBGISHQ4091-46-09 17:04:00 Test Item Value Reference Range Interpretation Comments MCH (test code = MCH) 27.5 pg 27.0-31.0 [facility] QbokreaYOWUZOOMUR6036-28-62 17:04:008.7[facility]annHEMATOLOGY 2015-09-04 17:04:02784Fvteeygt PpgtfjfAMQHBDWSUD8194-43-21 17:04:0014.4[facility] MlmuylaPFWONMPIEM1053-96-73 17:04:000.1[facility] IyvagxaRMNYKPYPNB2948-14-60 17:04:000.5[facility] PekzwedAQFRRTBVMW4865-44-49 17:04:00Normal (09/04/15 11:04 AM) [facility] ZdspwmhKTHBAOOAEU0971-73-25 17:04:00Normal (09/04/15 11:04 AM)[facility] HgyezfcCDSGIHVTWC1376-74-20 17:04:0093.3[facility] AsnpqonSMMAJZGIIH6851-55-05 17:04:000.2[facility] GccuzflRZPGJFFUQY6860-69-75 17:04:005.4[facility] [place] TGWANRMTNB3208-03-95 17:04:001.1[facility] NeqftlyHCDFAIXMRM4165-18-25 17:04:009.0 [facility] WxyqqgxVMQONC6076-46-22 17:04:0014[facility] PtxvgimULRKAU2440-36-53 17:04:94833Psgnbwkg AplpmtmRCSOGV3835-01-00 17:04:0054[facility] HermannLIPIDS 2015-09-04 17:04:0071[facility] QwfhxzmBUVWTU4343-19-58 17:04:25236Tygnkpom FvutdijBCRQCE6929-83-01 17:04:003.67[facility]annCARDIAC MVWVKTJ1700-35-58 10:50:000.6[facility]annCARDIAC OBGATXQ3724-21-26 10:50:000.6[facility] CARDIAC XTROQHD5601-20-10 10:50:00<0.02[facility]annCARDIAC ENZYMES 2015-09-04 10:50:26339Ziwxcvrp HermannCARDIAC PHZGTBY0710-95-94 04:33:09722 [facility] SSJDWWV8481-99-34 04:33:00<0.02[facility] CARDIAC NFILKRR6689-91-18 04:33:000.8[facility]annCARDIAC ZDWGDBC4604-17-43 04:33:000.7[facility]annCHEM MPZBT0182-73-36 04:33:0087[facility]annCHEM BZVUG0075-03-14 04:33:008[facility]annCHEM HNKPG0575-16-69 04:33:000.82 [facility]annCHEM EMMEK5726-35-11 04:33:17858Acpafqnq HermannCHEM PANEL 2015-09-04 04:33:88138Qpahpmry HermannCHEM ADGLO6376-92-07 04:33:003.9[facility]annCHEM EKWIE2363-94-58 04:33:53495Abxrruby HermannCHEM AZWBN2232-08-88 04:33:0013.9[facility]annCHEM BCEOX8252-92-00 04:33:009.2[facility]annCHEM YLTBQ6564-23-50 04:33:0025[facility] IngyoxqWQUOJNZWSZ6509-46-14 04:33:007.4 [facility] YvjhrfqLLPJKDKIGL8078-72-66 04:33:0012.4[facility]annHEMATOLOGY 2015-09-04 04:33:004.57[facility] HggzgpqPDMIZBASJZ0343-64-50 04:33:0039.4[facility] VopullaGSYQNIAWHI6879-70-15 04:33:0086.1[facility] TmufhfqBUJWUEKWBO7836-98-07 04:33:0014.7[facility] HjwzvquTFQVHCKIRY3267-48-65 04:33:0031.6[facility] EZMYHVSGZH1640-52-95 04:33:00 Test Item Value Reference Range Interpretation Comments MCH (test code = MCH) 27.2 pg 27.0-31.0 [facility] KbdshghACUCWFUVSB4170-03-17 04:33:008.3[facility]annHEMATOLOGY 2015-09-04 04:33:52292Oontzmty PgeqqlkZGHINFLVKW6391-92-92 04:33:005.5[facility] EphbynoOJQUYCTNVD6734-67-36 04:33:006.5[facility] CpmjoisNVXUJZZMXH2523-12-14 04:33:0031.7[facility] MncukgyCBQSLESJLP0273-35-78 04:33:0055.0[facility] [place] MBQXVBSJZW3760-23-83 04:33:000.5[facility] HnjwuekNQKVPZCXOE4326-47-97 04:33:002.3 [facility] AobjfduJZAHBWMMGP4986-26-57 04:33:004.0[facility]annHEMATOLOGY 2015-09-04 04:33:001.3[facility] FipnrjiYOVARAHCWI2991-71-93 04:33:000.1[facility] EgwyatpHNRWWUMYRH3537-66-41 04:33:000.4[facility] [facility]CARD[facility]AC AGRSCFH5906-71-99 10:25:00<0.02[facility] CYOIVKC4063-09-40 10:25:0075[facility]ann[facility]AC ZHPFHKX3131-29-13 10:25:000.9[facility]ann[facility]AC ENZYMES 2015-07-16 10:25:001.2[facility] HermannCHEM UVZYU7248-86-11 10:25:68517Rlfjejqh HermannCHEM BSIWV5216-00-81 10:25:000.6[facility]annCHEM TYSPB4855-66-75 10:25:003.1[facility]annCHEM AAKWR2911-86-16 10:25:009.0[facility]annCHEM PQANR7151-68-24 10:25:006.3[facility]annCHEM LKXAV2018-89-98 10:25:0014 [facility]annCHEM DVWJY1789-23-15 10:25:0089[facility]annCHEM PANEL 2015-07-16 10:25:0019[facility]annCHEM HVGSS4685-04-54 10:25:0025[facility]annCHEM GZAOI9475-53-94 10:25:004.2[facility]annCHEM ZNXXW9712-16-03 10:25:54509Ezbdswqp HermannCHEM VPDSV4183-71-11 10:25:0014[facility]annCHEM DKFPV6674-84-58 10:25:000.70[facility]annCHEM TOEZE6615-67-29 10:25:45680 [facility]annCHEM OOJOQ5095-03-09 10:25:0078[facility]annCHEM PANEL 2015-07-16 10:25:0020[facility]annCHEM ZAYHU0215-85-37 10:25:0010.2[facility]annCHEM VHJIR5534-78-33 10:25:001.0[facility]annCHEM VMHKD2212-38-37 10:25:003.2[facility] TptbhfgEHEFTALSIC6235-86-30 10:25:008.6[facility] CSRAUDPCMM0219-21-36 10:25:42008Fvqmluxl GgeizekZADHEZQJTK4960-03-06 10:25:00 14.3[facility] KbwpkafGJTHDSWHDT1980-51-59 10:25:004.53[facility] HermannHEMATOLOGY 2015-07-16 10:25:005.5[facility] XhvahucCDANBJLAEH3805-22-94 10:25:00 Test Item Value Reference Range Interpretation Comments MCH (test code = MCH) 27.9 pg 27.0-31.0 [facility] FlfhnygDAEZTTBBMZ1419-62-74 10:25:0031.5[facility] HermannHEMATOLOGY 2015-07-16 10:25:0088.6[facility] FalsgcgUFRXOPKSKX6675-16-57 10:25:0040.2[facility] DkieanhVMCUUYSBFU6178-81-46 10:25:0012.6[facility] NnyufznNSPRCSYQQX1373-03-95 10:25:000.2[facility] UujjotkIWTGQVWFZN6837-38-48 10:25:002.0[facility] EMKMQEQWNG9840-13-56 10:25:000.9[facility] ZzlnfeqERAKEKPHRJ3390-10-76 10:25:000.6 [facility] HsgcmghKVUGZNPMID1420-07-06 10:25:002.6[facility]annHEMATOLOGY 2015-07-16 10:25:0011.0[facility] XotbftyTTPAAMYGZA4566-21-45 10:25:004.0[facility] NzjmzpyQJVLGFOJJV0073-73-49 10:25:0036.1[facility] IvfkyekIGSGTAMHOU6398-54-86 10:25:0048.0[facility] XrabhrkXJYWFUHNVG5652-86-35 10:25:000.1[facility] CARDIAC JYPAAMW3892-47-23 04:22:00<0.02[facility]annCARDIAC ENZYMES 2015-07-16 04:22:0088[facility]annCARDIAC HKRGWIT1012-14-34 04:22:001.1 [facility]annCARD[facility]AC INLAKFM0364-68-64 04:22:001.0[facility] HermannHEMATOLOGY 2015-07-15 21:33:006.4[facility]annCARDIAC SLLJCLE4457-82-92 21:33:00<0.02 [facility]annCARD[facility]AC NUBRENX6053-47-59 21:33:001.2[facility]annCARDIAC JWMYUNP8067-12-66 21:33:93087Bgrzykxj HermannCARDIAC PHRAION8838-52-63 21:33:00 1.2[facility] HermannCHEM DZMAG7089-23-87 21:33:0090[facility]annCHEM PANEL 2015-07-15 21:33:0091[facility] HermannCHEM OZCHT9678-41-35 21:33:0019[facility]annCHEM IJQWV7620-52-82 21:33:0017[facility]annCHEM JYPOY9674-56-51 21:33:0012[facility]annCHEM JNPBW6250-11-03 21:33:000.8[facility]annCHEM VHKPD5143-91-57 21:33:0011.1[facility]annCHEM ITVJW7025-03-18 21:33:003.5 [facility]annCHEM TBLYR5445-85-30 21:33:0027[facility]annCHEM PANEL 2015-07-15 21:33:006.8[facility] HermannCHEM MBGZH3471-45-02 21:33:008.7[facility] HermannCHEM ANHZK7682-19-62 21:33:003.3[facility] HermannCHEM RLXDH0364-21-60 21:33:001.1[facility]annCHEM TBYKQ5862-92-12 21:33:000.80[facility]annCHEM AWHSC2153-72-83 21:33:95608Lvrjbfck HermannCHEM SINOS5934-45-24 21:33:93978 [facility]annCHEM HWPFJ5541-55-72 21:33:004.1[facility] HermannCHEM PANEL 2015-07-15 21:33:0010[facility] HermannCHEM BMJDF8290-25-23 21:33:0072[facility] WogqfvdVIMMFXKMOJ8188-53-05 21:33:003.3[facility] NnawhusAZGUOQWOZA4615-41-81 21:33:000.2[facility] QieaqbhXDALKBZISD4730-46-65 21:33:000.6[facility] BDVRVDJWOD4258-34-36 21:33:002.3[facility] RuxjccaCYFRLJWFFP4372-77-00 21:33:00 51.8[facility] NewbgiiQIXRRTONGD5546-03-83 21:33:000.6[facility] HermannHEMATOLOGY 2015-07-15 21:33:003.1[facility] ZusxujwDTVSPNJNFM6913-66-44 21:33:009.4[facility] IkkwootZGNOCNLYYJ8611-46-78 21:33:0035.1[facility] QdlzrszXMLKWQOFON8856-66-08 21:33:000.0[facility] XxxyygwPSAOPVFZJT7358-84-54 21:33:009.1[facility] SVPKDKPVAO0392-40-43 21:33:0087.6[facility] HvcorevDGJLSUXYMU1052-32-39 21:33:00 12.9[facility] PuuiwybALCNYREZYL1822-55-58 21:33:0039.8[facility] HermannHEMATOLOGY 2015-07-15 21:33:0032.3[facility] OjsqjkjZZLKNQZPWJ1467-37-07 21:33:0014.8[facility] EcliveoXCOXRLQUIF3227-83-39 21:33:00 Test Item Value Reference Range Interpretation Comments MCH (test code = MCH) 28.3 pg 27.0-31.0 [facility] JfxroaaKRKKDCWREN3397-01-00 21:33:31618Dnrpdixr HermannHEMATOLOGY 2015-07-15 21:33:004.54[facility] RasocwiPVOBTHAGLT5108-56-13 19:18:00Negative (05/18/15 2:18 PM)[facility]annCARDIAC XBNDJWM2857-99-49 18:26:00<0.02 [facility] HermannCHEM QUTTU7475-05-57 18:26:000.1[facility] HermannCHEM PANEL 2015-05-18 18:26:003.9[facility] HermannCHEM TMPAB4900-01-33 18:26:70150Ckbhpvmh HermannCHEM YULDC4840-98-05 18:26:000.5[facility] HermannCHEM UYJQP9200-18-28 18:26:0022[facility]annCHEM EBFST6497-88-02 18:26:0018[facility] HermannCHEM BLWIB6318-48-38 18:26:007.9[facility] HermannCHEM BKCLB8227-31-39 18:26:004.0 [facility]annCHEM RQXEN5185-53-15 18:26:000.4[facility] HermannCHEM PANEL 2015-05-18 18:26:001.0[facility] HermannCHEM BMEDX7568-18-50 18:26:88128Vcunbgjb HermannCHEM CMBSO1255-57-06 18:26:0078[facility] HermannCHEM KWVUX9748-80-23 18:26:09797Ooakxjuq HermannCHEM WZEJV6151-82-57 18:26:003.9[facility] HermannCHEM JNJWI9573-16-57 18:26:000.9[facility] HermannCHEM KITND5918-64-66 18:26:0087 [facility]annCHEM MSHDP9768-51-45 18:26:007[facility] HermannCHEM PANEL 2015-05-18 18:26:82592Pjzosuge HermannCHEM DNGCN6529-83-94 18:26:0028[facility] HermannCHEM XPSGU6732-21-83 18:26:0010.2[facility] HermannCHEM KSLZI7874-57-74 18:26:0010.9[facility] QfacopdYYBAALCZYI5966-52-58 18:26:0014.2[facility] LLLRFXPLHK1681-37-04 18:26:004.96[facility] ZeebiosCVQOZCJUZJ9615-44-42 18:26:00 Test Item Value Reference Range Interpretation Comments MCH (test code = MCH) 28.7 pg 27.0-31.0 [facility] WqtegiyKCWMPNZAIW3232-71-53 18:26:0032.9[facility] HermannHEMATOLOGY 2015-05-18 18:26:0043.3[facility] RtdhnhqPSUVAMADII3461-79-74 18:26:0087.2[facility] PwgtukdUTRZRVKDKF8275-61-55 18:26:006.8[facility] WbmcsjbOSGSUWBDSU2300-92-57 18:26:96622Sllcomur UgedgqtCZZUDGCQOD2893-76-39 18:26:008.2[facility] JLGBTDFVFJ2419-38-52 18:26:0014.5[facility] GsodnkqYLQVVPSHRC8998-87-95 18:26:00 55.6[facility] XikfiryYTNACELKWB2948-65-08 18:26:0032.7[facility] HermannHEMATOLOGY 2015-05-18 18:26:008.5[facility] OlqyifgXEWPNKNAVX3639-59-25 18:26:003.8[facility] GwggquvPGTOFEWLYB1705-09-00 18:26:000.6[facility] EpjdtuuJMXXCJYWBH5909-79-13 18:26:002.2[facility] OypjbfgTKXSEIQERJ3916-83-60 18:26:002.6[facility] ZZCDYYARZV6945-42-01 18:26:000.2[facility] TolvcshCDPDSMGXSA2044-90-22 18:26:000.6 [facility] SlnmhyjNBQDMKZWNK9506-84-23 18:26:00Positive *NA*(05/18/15 1:26 PM) [facility] SdgljayMXEZAXSRKO8370-87-67 18:26:66272336Brocwbga HermannIMMUNOLOGY 2015-05-18 18:26:005.5[facility] HermannCARDIAC GUHSSNM7954-57-69 18:51:00<0.02 [facility] HermannCHEM QPXIV3972-30-95 18:51:0090[facility] HermannCHEM PANEL 2015-05-09 18:51:0028[facility] HermannCHEM DBCVN6967-47-93 18:51:009.6[facility] HermannCHEM WYLCN8055-15-47 18:51:71935Cowrsxtc HermannCHEM DCIVD2415-03-31 18:51:000.8[facility] HermannCHEM TTEQJ5036-24-56 18:51:83119Umawbceu HermannCHEM HLGAM8735-01-62 18:51:003.7[facility] HermannCHEM SDUJC8820-28-67 18:51:42354 [facility] HermannCHEM SJGHX4828-70-33 18:51:007[facility] HermannCHEM PANEL 2015-05-09 18:51:009.7[facility] BixcsuhHYQKLQEYWW5496-48-62 18:51:0014.4[facility] HzdgsuhFWIQZGKVTE8355-30-79 18:51:0032.5[facility] SibganlNTVPJGQMUR2067-20-00 18:51:00 Test Item Value Reference Range Interpretation Comments MCH (test code = MCH) 28.7 pg 27.0-31.0 [facility] NoqbhwbPAYSOLXVXK0177-52-19 18:51:25918Ysehzawh HermannHEMATOLOGY 2015-05-09 18:51:007.6[facility] QfyghqrOXBXEGSOUT0592-64-65 18:51:0088.2[facility] UkekjvxXOTRBQNNMZ9279-34-38 18:51:0041.9[facility] OqvxkahVYXDWFTQUU6364-22-69 18:51:004.75[facility] YffguvkWSZNCLFMLQ1845-07-57 18:51:0013.6[facility] UWIWPCOBPC8719-58-66 18:51:005.6[facility] YhjivclQCNRGYVQDH9341-64-98 18:51:002.1 [facility] GhcwnvkCDYCNZEZYL5467-78-77 18:51:000.1[facility] HermannHEMATOLOGY 2015-05-09 18:51:000.2[facility] SjpziknHMAUXSTRTY6674-79-34 18:51:000.4[facility] ShiwdukLPVRCRYLXE2652-40-76 18:51:0050.8[facility] EoqamwgBSTEKBRQSJ8577-29-35 18:51:002.8[facility] NnypwjyEREKBODOVO1741-40-27 18:51:002.9[facility] KYEUSVYESW4898-57-77 18:51:001.1[facility] ZitoqrzABNYKUFVZX4747-92-87 18:51:007.7 [facility] NgmbkhzYBHXEAOPUH2870-98-79 18:51:0037.6[facility] HermannCARDIAC ENZYMES 2015-05-02 22:03:00<0.02[facility] HermannCHEM YGDTW8368-99-42 22:03:003.2 [facility] HermannCHEM TUDAI0030-49-67 22:03:002.1[facility] HermannELECTROLYTES 2015-05-02 22:03:0012.4[facility] TqzymowCCVCPJDMCFJK5021-62-66 22:03:0068[facility] YnbmdhcECVISBIMQBPP0686-56-87 22:03:96975Riffujad LblmqmsNQLXVANQEANC8671-82-65 22:03:39935Nkpkduwe SnxieisVAFKZIRHMMYW7940-14-68 22:03:0028[facility] OBIWYYMWATYP0656-41-49 22:03:008.8[facility] IyjnonsIQFVSTSBNVSY9168-37-33 22:03:003.4[facility] UqaprzjOSXLFSNDVWVS6575-78-25 22:03:000.9[facility] RVZYCMSKRKHI4891-97-05 22:03:0092[facility] LduvgwdEOVYFTEHPFMC5854-51-75 22:03:00 6[facility] HqdazpgJGCSKZVSBU1240-86-13 22:03:008.0[facility] HermannHEMATOLOGY 2015-05-02 22:03:0014.1[facility] OlbkjhlABEYNFKMJU0940-36-91 22:03:08395Vhhaougr SpgsfmcBBZBIVAUFA4137-81-44 22:03:0032.6[facility] FhsakpdMLRVHIMDOR1247-46-21 22:03:008.0[facility] OkuwljpPMIATHKYNM0234-53-76 22:03:0040.2[facility] NKLOJEVFHH5913-10-46 22:03:0087.4[facility] FudhohzNZOSIAQXTI5993-71-06 22:03:00 13.1[facility] GitltpkRXJBIOEOUM0843-51-55 22:03:004.60[facility] HermannHEMATOLOGY 2015-05-02 22:03:00 Test Item Value Reference Range Interpretation Comments MCH (test code = MCH) 28.5 pg 27.0-31.0 [facility] LmcoezgJVVKIAIBMH7568-39-48 22:03:0026.3[facility] HermannHEMATOLOGY 2015-05-02 22:03:0060.9[facility] DdiojmsISOBGMQTEN4358-95-39 22:03:001.0[facility] PjhhfjdEXXYAXQXUZ8901-82-00 22:03:003.0[facility] HvgvgsqQHUBZUSEES8085-58-91 22:03:008.8[facility] DcmhetmXPRHVYMQRE4633-29-42 22:03:000.7[facility] BBKZAIVJVU3176-00-72 22:03:000.2[facility] TrdvzebUQUMQECKWM9155-03-42 22:03:002.1 [facility] GrvnmquPYPNWGPSPT6166-87-63 22:03:004.9[facility] HermannHEMATOLOGY 2015-05-02 22:03:000.1[facility]annURINE AND DPEYT6008-53-43 21:38:00Negative (05/02/15 4:38 PM)[facility] OTMQW6644-81-75 21:38:00Moderate *ABN*(05/02/15 4:38 PM)[facility] EJDQV2488-86-29 21:38:00None Seen (05/02/15 4:38 PM)[facility] XSWOK5414-40-98 21:38:00None Seen (05/02/15 4:38 PM)[facility] NJQGF1931-94-85 21:38:00Negative (05/02/15 4:38 PM)[facility] NVWSE6833-21-30 21:38:00Negative *NA*(05/02/15 4:38 PM)[facility] KNPTT0592-09-24 21:38:000.2 [facility] XRQMU9125-69-92 21:38:00Negative (05/02/15 4:38 PM) [facility] KLKYU4146-86-08 21:38:00Negative *NA*(05/02/15 4:38 PM) [facility] QIEJA1981-27-67 21:38:00Yellow *NA*(05/02/15 4:38 PM) [facility] PRCCI5054-92-41 21:38:00 Test Item Value Reference Range Interpretation Comments UA pH (test code = UA pH) 6.0 1 5.0-8.0 [facility] BNTCW6336-35-41 21:38:00Slight Cloudy (05/02/15 4:38 PM) [facility] GCJMM6921-97-22 21:38:00Negative (05/02/15 4:38 PM) [facility] GTKGS1290-62-25 21:38:00 Test Item Value Reference Range Interpretation Comments UA Spec Grav (test code = UA Spec 1.006 1 Grav) [facility]annCHEM QQRHA3674-29-66 09:28:0095[facility] HermannCHEM PANEL 2015-03-24 09:28:006[facility] HermannCHEM NLVVC3593-12-15 09:28:001.1[facility] HermannCHEM WLYKT9411-60-83 09:28:003.1[facility] MfszkabLZTVGAGLXR9035-94-27 09:28:0011.3[facility] WwpgfkxJAXKGPCAZJ8367-99-49 09:28:0027.1[facility] LJFMIWYRHC5389-85-89 09:28:005.9[facility] EererqrVLITEJNOUH1299-32-91 09:28:003.3 [facility] ExlynhhAYDAKHPWDM3966-82-17 09:28:000.7[facility]annHEMATOLOGY 2015-03-24 09:28:0055.0[facility] BoyhwwpAMIAFVLDYX9813-47-06 09:28:000.7[facility] TwbdepeAZSYMOMAWU5015-35-65 09:28:001.6[facility] WyinbxzOLKYPMQCJF2710-28-48 09:28:000.4[facility] GhmfudmSVEMHQYCXK7889-69-51 09:28:004.21[facility] YIIVJBSABR5494-58-26 09:28:005.9[facility] YbwwrlqKKBWYJYCDJ0816-21-44 09:28:63734 [facility] NureduxESKEATCPQE9152-83-64 09:28:0032.4[facility] HermannHEMATOLOGY 2015-03-24 09:28:0014.2[facility] FsuvhcaYEGNPXLTDC3218-52-47 09:28:008.6[facility] EogomzjYLHDVBOINV1214-29-85 09:28:0037.2[facility] VnnjqbyPDDILNLPTX2470-49-95 09:28:0088.3[facility] OzqqfcwLYFWKCIIBO6371-95-47 09:28:0012.1[facility] VZYZGTOMRS4860-71-65 09:28:00 Test Item Value Reference Range Interpretation Comments MCH (test code = MCH) 28.6 pg 27.0-31.0 [facility]annCHEM XCRAS1748-48-70 09:28:12606Cukplzaj HermannCHEM PANEL 2015-03-24 09:28:97832Umkxlqkg HermannCHEM UHJMZ0055-66-31 09:28:000.7[facility] HermannCHEM EDKLT0241-71-03 09:28:004[facility]annCHEM ZCIGB4186-53-19 09:28:003.2[facility] HermannCHEM AYYTR4953-33-93 09:28:21648Xlvlstan HermannCHEM GGPSO8439-83-57 09:28:0091[facility] HermannCHEM LAHEK4890-49-63 09:28:003.5 [facility]annCHEM HZGSK3092-52-51 09:28:006.6[facility] HermannCHEM PANEL 2015-03-24 09:28:30500Guolzbjl HermannCHEM PVEEK8473-24-43 09:28:009.1[facility] HermannCHEM XJTZE0235-35-71 09:28:0027[facility]annCHEM JOCKE1052-25-71 09:28:0011.2[facility] HermannCHEM YDKIL1011-10-39 09:28:0021[facility]annCHEM BBDEH8079-20-00 09:28:0034[facility]annCHEM OGOEN8877-44-17 09:28:000.6 [facility] MKQIM5856-04-88 18:14:00Negative (03/23/15 1:14 PM) [facility]annCARDIAC PCSBURD1166-53-42 10:51:000.8[facility]annCARDIAC CLODLQF6048-95-57 10:51:0070[facility]annCARDIAC ADLBHVZ7743-36-86 10:51:00 1.1[facility] HermannCHEM MRNUS3253-12-81 10:51:20804Athrhhri HermannCHEM PANEL 2015-03-23 10:51:0027[facility] HermannCHEM BTKHW5925-14-18 10:51:009.2[facility] HermannCHEM ZCJXD0504-20-74 10:51:76456Ojgoyhah HermannCHEM OTLGX2046-69-52 10:51:31123Gttolmrh HermannCHEM GFHHU5948-79-94 10:51:003.5[facility] HermannCHEM BQJHU7717-16-07 10:51:000.7[facility] HermannCHEM KTFFG0299-47-96 10:51:008 [facility]annCHEM NJWCE6936-06-02 10:51:41607Cszjqtxv HermannCHEM PANEL 2015-03-23 10:51:0010.5[facility] GoejaxlNBNGNQEYHJ6344-22-27 10:51:001.3[facility] JckvilvOOSODZJGQD8201-46-90 10:51:003.4[facility] HbcecrfOWZTQPIMNX3045-52-21 10:51:000.6[facility] DytkdicPCQCDUKKUD0409-76-08 10:51:004.0[facility] FIGYQUVGKM5335-50-11 10:51:000.2[facility] LhyomtjLSDMIJZKIC9689-71-23 10:51:000.6 [facility] MtwdzunOHUILHLOXH2239-41-86 10:51:0011.0[facility] HermannHEMATOLOGY 2015-03-23 10:51:0023.6[facility] AdynqhoVCLDJCCYIY3968-95-65 10:51:0060.8[facility] NpdgpkuZLAYHNKVPG1368-72-36 10:51:008.3[facility] HhauopnNJBHUYYWUE7251-19-75 10:51:03639Kbtbsrdo TjxeowaSMLZBPJGEA1624-07-24 10:51:0014.6[facility] RKBDDRNHDY7178-90-53 10:51:0088.0[facility] GdlpmixAXXXPYDQAG5196-63-96 10:51:00 Test Item Value Reference Range Interpretation Comments MCH (test code = MCH) 28.7 pg 27.0-31.0 [facility] LecrnhiRZZVIQDAGY7620-56-61 10:51:0034.7[facility] HermannHEMATOLOGY 2015-03-23 10:51:0032.6[facility] SvstaohAPPITRYKCL4735-90-03 10:51:0011.3[facility] NfuvomkCAUKYBEONC5389-68-85 10:51:003.94[facility] NpljgqzEAZCMGIBHA0121-55-64 10:51:005.6[facility] HermannCARDIAC RHFZQKF1799-83-24 10:19:001.6[facility] CARDIAC OACYNXB6896-53-50 10:19:001.0[facility] HermannCARDIAC VLVDIZC1361-99-81 10:19:0064[facility] HermannCHEM VJGVU5488-14-89 10:19:32010Xsdqprrv HermannCHEM IIJNO9856-82-84 10:19:008.7[facility] HermannCHEM LBNWJ4496-28-44 10:19:72441 [facility] HermannCHEM VYTWL4865-68-50 10:19:003.9[facility] HermannCHEM PANEL 2015-03-22 10:19:98386Tmwmtokx HermannCHEM RENIC1151-19-95 10:19:0027[facility] HermannCHEM JNZCQ5106-89-05 10:19:0094[facility] HermannCHEM CILIO7309-69-70 10:19:008[facility] HermannCHEM HMGXU4950-36-83 10:19:000.6[facility] HermannCHEM CYGGD7299-20-54 10:19:008.9[facility] WyzmptuDPPJJPEPFW7538-57-08 10:19:000.2 [facility] QegyhixPNRMUIFXZP7508-71-12 10:19:000.5[facility] HermannHEMATOLOGY 2015-03-22 10:19:000.9[facility] ImbdsthSQOMWFWIPI4208-57-61 10:19:0011.2[facility] NpcriboAJRKLLTEYJ6034-52-82 10:19:002.1[facility] RljsqfzBEAOTDTSGH3569-06-42 10:19:003.7[facility] SaixftkMHHTQPKLXD2176-66-98 10:19:001.6[facility] JMTOIQYKLL3167-44-74 10:19:0048.6[facility] NdapfjaGMCIHMUWPZ4917-34-06 10:19:00 35.6[facility] InrxahdFXEEJYWRWH7349-15-14 10:19:008.9[facility] HermannHEMATOLOGY 2015-03-22 10:19:004.4[facility] IddkaaoXBFUWDFHJA6028-50-44 10:19:00 Test Item Value Reference Range Interpretation Comments MCH (test code = MCH) 29.9 pg 27.0-31.0 [facility] CubasliWIIBEZLFMN0231-82-15 10:19:0086.5[facility] HermannHEMATOLOGY 2015-03-22 10:19:0034.6[facility] ChbacouNIYAKRNBPH9740-86-12 10:19:0011.7[facility] WzbbqibPLCXRGBDRG7419-86-58 10:19:003.92[facility] AieifuxLBJIKCGFRL1499-78-84 10:19:0033.9[facility] ZljlmwlTJWKPRMQLI3223-06-73 10:19:0014.6[facility] SGUHOJGNOU0528-75-06 10:19:18903Svwbgahe HermannCARDIAC CRZNGPP3381-56-69 03:22:001.6[facility] HermannCARDIAC RJOGPGU0433-64-63 03:22:0077[facility] CARDIAC LBWQVGO6254-03-55 03:22:001.2[facility] HermannCHEM CDMIX2962-41-83 02:44:001.4[facility] HermannCARDIAC STMPHEM1496-61-96 21:13:00<0.02[facility] HermannCHEM ACCWH1546-31-53 21:13:003.3[facility] HermannCHEM PDTXL7563-21-59 21:13:001.1[facility]annCHEM WFQIP3502-94-14 21:13:0016[facility]annCHE[facility] DTGTT2310-20-09 21:13:62744Uovxramb HermannCHEM BURCF9396-44-67 21:13:0025 [facility]annCHE[facility] CEYYC7379-35-50 21:13:000.5[facility]annCHEM PANEL 2015-03-21 21:13:0032[facility]annCHE[facility] IBYVA0893-26-11 21:13:003.7[facility]annCHE[facility] JBKPM1472-86-43 21:13:007.0[facility] NxayvonUFDQXBGFIC6137-63-84 21:13:000.0[facility] BpljsqpHPFCNKXUJC6017-87-59 21:13:001.04[facility] JDSMIPPVFH9419-28-89 21:13:00 Test Item Value Reference Range Interpretation Comments PT (test code = PT) 13.6 s 12.0-14.7 [facility] VcazgakCWCXSUGHQW1654-86-41 21:13:00 Test Item Value Reference Range Interpretation Comments PTT (test code = PTT) 35.2 s 22.9-35.8 [facility]annCARDIAC IUDNUFW4557-78-90 21:10:006[facility]AC AOESLNF2437-32-18 21:02:00<0.02[facility]annC[facility]AC PXPCDIH8540-51-60 21:02:0031[facility] LMBHLZE1452-93-95 21:02:000.8[facility] CARDIAC HVWOQFZ1345-97-02 21:02:0070[facility]annC[facility]AC JPGHCWR8031-98-37 21:02:001.1[facility]annCHEM PZUOP0513-72-19 21:02:85872Claynyqd HermannCHEM TIUYV6325-06-31 21:02:0099[facility]annCHE[facility] ZTPLT1406-81-83 21:02:000.6 [facility]annCHE[facility] DSNFH0124-18-57 21:02:0011[facility]annCHEM PANEL 2015-03-11 21:02:009.4[facility]annCHE[facility] LKRPH4215-60-08 21:02:003.1[facility]annCHE[facility] WAFTT3499-33-44 21:02:001.1[facility]annCHE[facility] ZQSKJ4757-95-04 21:02:0073[facility]annCHE[facility] EBBBI9058-89-71 21:02:008[facility]annCHE[facility] AYAKH3084-49-48 21:02:000.7[facility]annCHE[facility] HQDXV9420-51-46 21:02:43812 [facility]annCHE[facility] OSPFQ7256-89-82 21:02:003.4[facility]annCHEM PANEL 2015-03-11 21:02:0028[facility]annCHE[facility] WMPNN2755-44-77 21:02:39165Tvfqtwcv HermannCHEM KAQDZ0752-05-40 21:02:008.9[facility]annCHE[facility] GBWFO1034-44-09 21:02:006.5[facility]annCHE[facility] RPMIN3381-50-71 21:02:003.4[facility]annCHE[facility] MMOME3023-26-02 21:02:0030[facility]annCHE[facility] WYXMP1858-51-29 21:02:0021 [facility] IrsyoenDZLUCEBZTQ9701-84-50 21:02:0015.1[facility]annHEMATOLOGY 2015-03-11 21:02:0033.1[facility] BgeugxgECRHLSEYUX0975-76-51 21:02:56019Cpueuoeq YomyyuhTYFJBEOHDD7273-42-99 21:02:008.1[facility] YscizelXOSWZYWYTH9069-46-47 21:02:0034.6[facility] IaprvxbGOVCIXACAK0130-19-33 21:02:0011.5[facility] NOUDSBRKIG5110-61-98 21:02:00 Test Item Value Reference Range Interpretation Comments MCH (test code = MCH) 28.8 pg 27.0-31.0 [facility] ClrjvirUWANAOLAHL8154-00-80 21:02:0086.9[facility]annHEMATOLOGY 2015-03-11 21:02:003.98[facility] LetwmslYNBORYGXXZ3535-62-57 21:02:006.5[facility] VfjgqinMGGBXYGTMM4176-67-56 21:02:00 Test Item Value Reference Range Interpretation Comments PTT (test code = PTT) 32.8 s 22.9-35.8 [facility] ZqdklqgITSTQFQMCQ5270-29-89 21:02:00 Test Item Value Reference Range Interpretation Comments PT (test code = PT) 13.3 s 12.0-14.7 [facility] QviymdgHUJYGQNQGJ2746-44-56 21:02:001.01[facility]annHEMATOLOGY 2015-03-11 21:02:000.0[facility] PdkikiwXZGUOEZQCM1684-43-72 21:02:003.7[facility] JedovqdRFOENLKDQG7744-70-51 21:02:000.2[facility] AbtzgryQDIXYGUEOP7877-98-77 21:02:000.6[facility] SsakqgsMIBNXHJRFZ4164-30-06 21:02:001.9[facility] RQKGEUKGVO4993-41-76 21:02:0056.9[facility] SzdpagxLDNTPMZRLV9302-21-36 21:02:00 2.7[facility] MvkgblyTMAHMCUFBP7232-65-30 21:02:000.4[facility]annHEMATOLOGY 2015-03-11 21:02:009.9[facility] SqawkusNDNFBPMZNM6892-59-17 21:02:0030.1[facility] HermannCARDIAC OFZNCCE2671-46-39 09:33:00<0.02[facility]annCARDIAC ENZYMES 2015-03-05 06:16:00<0.02[facility]annCHEM DDZHW9008-13-15 06:16:001.1 [facility]annCHE[facility] CRSPC0042-77-60 06:16:003.5[facility]annCHEM PANEL 2015-03-05 06:16:000.5[facility]annCHEM UCGBW4251-11-14 06:16:000.1[facility]annCHEM YQORX2260-66-44 06:16:0025[facility]annCHEM CAFVO5282-93-94 06:16:0021[facility]annCHEM BJTOS8673-24-94 06:16:003.7[facility]annCHEM VNRPH9061-76-62 06:16:68813Wovqgkcf HermannCHEM RECRQ2097-42-01 06:16:000.6 [facility]annCHE[facility] NOALC8647-91-52 06:16:007.2[facility]annCHEM PANEL 2015-03-05 06:16:34732Diyyvluu DfyhlawFEJYLOXERBTD8519-16-97 06:16:0012.6 [facility] NdnvyogSYDZGRBCBDBX1741-74-06 06:16:0078[facility] HermannELECTROLYTES 2015-03-05 06:16:009.6[facility] SofcrllDIRCSCTJFTLW5783-41-30 06:16:0029[facility] YcmqtopOSSYIGBJJOGO9203-48-71 06:16:003.6[facility] ApjliqlTAIHFUAJGLUW1033-06-98 06:16:74954Epmkfztn WajmacgOVMLCADAFZXX7392-58-31 06:16:99333[facility] RVKGLLKTZYII7547-03-83 06:16:000.8[facility] JzaidinOUHVMVSSRYUW0010-46-85 06:16:009[facility] WmhkvasPGWTDWHVHDPJ0986-22-14 06:16:0096[facility] FGWPUFLFYZ6959-93-78 06:16:002.6[facility] DnzmiexJNDQEGKSZE8072-96-50 06:16:000.9 [facility] QtyecqxLZXUHZEJLX1309-82-60 06:16:000.7[facility] HermannHEMATOLOGY 2015-03-05 06:16:001.7[facility] CdgfejsQHFKGOSDXO1423-32-70 06:16:006.7[facility] WiqugjhDQHYPWBFIX9285-18-85 06:16:0025.0[facility] OcyrvgwGCIXLMVTIM9529-50-75 06:16:0064.3[facility] QxkindkWFGOFRESXU4792-05-45 06:16:008.3[facility] NDBPVDIELU8685-32-58 06:16:000.2[facility] NvsykzfCFFOVJIKPJ8613-53-54 06:16:000.1 [facility] AsxerpeGMXKESGEBD5097-73-49 06:16:0087.7[facility] HermannHEMATOLOGY 2015-03-05 06:16:0039.7[facility] KrvufldAKEVBAQEJI1410-36-77 06:16:008.0[facility] LwxazqlMYQEGLIRVQ5550-44-38 06:16:35050Zdwloxkq NdsfjgaFSEEICPUXU5868-28-82 06:16:0014.6[facility] OaxjsqgEOPILEXVJV5825-14-19 06:16:0032.4[facility] NKOXNHSMSH5247-46-78 06:16:00 Test Item Value Reference Range Interpretation Comments MCH (test code = MCH) 28.4 pg 27.0-31.0 [facility] AaemtpzWDSCNUGUGZ6151-85-20 06:16:0010.5[facility]annHEMATOLOGY 2015-03-05 06:16:004.53[facility] VyoigktDJZISCMVFN9411-10-14 06:16:0012.9[facility] HermannCHEM ZPLXT5164-62-57 09:16:002.0[facility]annCHEM RWBHH2764-70-39 09:16:003.6[facility]annCHEM CLICS4046-53-13 09:16:96153Jxayedso HermannCHEM GKVVT9229-34-10 09:16:0017[facility]annCHEM XHPZZ1570-06-79 09:16:003.3 [facility]annCHE[facility] HPNGW2976-55-34 09:16:001.1[facility] HermannCHEM PANEL 2015-02-25 09:16:006.3[facility] HermannCHEM BRIPI7683-47-10 09:16:0021[facility]annCHEM SMOVS0859-90-31 09:16:003.0[facility]annCHEM KWTEO7394-58-06 09:16:000.5[facility]annCHEM USYHM8687-80-61 09:16:80671Yrsqlrmy HermannCHEM NSZEH7052-66-52 09:16:0011[facility]annCHEM RQHQI5000-83-96 09:16:009.1 [facility]annCHE[facility] XPYVY0123-15-85 09:16:0099[facility]annCHEM PANEL 2015-02-25 09:16:008[facility]annCHEM YGUWB2078-04-92 09:16:99356Amaozsmh HermannCHEM XSPCP6835-36-85 09:16:000.7[facility]annCHEM VQWOL0104-53-20 09:16:008.9[facility]annCHEM KREVM5402-75-77 09:16:80763Xwctloij HermannCHEM KJGVQ9794-85-10 09:16:0028[facility]annCHEM CIDVT3883-59-92 09:16:003.9 [facility] KrmjwnaVUOVZAPDYJ5870-62-50 09:16:33846Ujrqfxpi HermannHEMATOLOGY 2015-02-25 09:16:008.8[facility] LdrzogjAFQGIXWWGT9839-83-15 09:16:0014.9[facility] CnekrqmNICQSUBSJR0946-16-44 09:16:005.9[facility] WfsgrzrQSMYIPCMEC2412-78-61 09:16:0088.4[facility] CbnqivaKUBIYQFVNN9174-04-10 09:16:0037.2[facility] DEALUARJZE2531-22-33 09:16:00 Test Item Value Reference Range Interpretation Comments MCH (test code = MCH) 28.6 pg 27.0-31.0 [facility] AookgwvGYETJFJRXB9253-69-61 09:16:0032.4[facility] HermannHEMATOLOGY 2015-02-25 09:16:004.21[facility] UjcqrcmWBDUKNDAQJ7366-98-84 09:16:0012.0[facility] NyjjwtuUWPDOOEWPS6026-21-37 09:16:0031.9[facility] LmuodjmLAZQPQGJLE9270-31-99 09:16:000.8[facility] OwhmoxkCAURCYZATH2341-80-00 09:16:003.1[facility] VEMZUPDZKP0035-33-30 09:16:0011.6[facility] SjuyldnTSTPJCVQHB8379-59-81 09:16:00 2.9[facility] TjfutzgRWVUENVJJJ6992-70-69 09:16:0052.8[facility] HermannHEMATOLOGY 2015-02-25 09:16:000.7[facility] BdqdhlgLYPSICSCQQ3466-95-15 09:16:001.9[facility] ScmcckwXWTAGPWALD5847-66-27 09:16:000.2[facility]annCARDIAC XEMUYMQ8372-68-92 04:30:0074[facility]AC KZBKKNW6444-42-71 04:30:001.2[facility] CARDIAC WQGRNFM8266-79-21 04:30:00<0.02[facility]annCARDIAC ENZYMES 2015-02-25 04:30:000.9[facility]annCARD[facility]AC OTCCOLJ8467-27-51 23:29:00<0.02 [facility] ETZNCUT3882-68-54 23:29:000.7[facility]annC[facility]AC CLPBSYJ3102-21-26 23:29:0068[facility]AC HAGPLBT3676-44-30 23:29:00 1.0[facility]annCARD[facility]AC UPCKXJS2541-06-53 17:33:000.9[facility]annCARD[facility]AC JFKMGNN4481-84-77 17:33:00<0.02[facility]annC[facility]AC RBYMLKX0159-25-06 17:33:000.7[facility]annC[facility]AC BOWDJZY8318-29-08 17:33:0076[facility] CHEM KQPBN3380-61-54 17:33:0090[facility]annCHEM INVJI4313-53-52 17:33:003.1 [facility]annCHEM XPTFF2149-77-93 17:33:64581Smhyuaid HermannCHEM PANEL 2015-02-24 17:33:000.3[facility]annCHEM PWAQQ7113-06-96 17:33:001.1[facility]annCHEM XCROZ8869-04-86 17:33:007.3[facility]annCHEM ENBVC5365-42-09 17:33:0012[facility]annCHEM HRUXS9170-70-62 17:33:000.8[facility]annCHEM NSUIC7280-46-26 17:33:05565Guixscih HermannCHEM SPCMO3333-88-23 17:33:0088 [facility]annCHEM QVHQS6308-90-17 17:33:003.3[facility] HermannCHEM PANEL 2015-02-24 17:33:04426Rhnmhkcx HermannCHEM EGDOD3463-27-78 17:33:0010[facility]annCHEM GYLSB8179-77-90 17:33:0015[facility]annCHEM PYIVK6671-92-46 17:33:0022[facility]annCHEM QAIFH0079-76-20 17:33:008.9[facility]annCHEM HVAXX5842-24-75 17:33:0030[facility]annCHEM BVQVW8553-09-18 17:33:006.6 [facility]annCHEM GPKAZ2770-92-90 17:33:003.5[facility]annHEMATOLOGY 2015-02-24 17:33:0055.9[facility] JffsucnDKXXXGRDIL3130-92-73 17:33:0028.7[facility] NdxpmqmQUFDNCMLNT0636-57-75 17:33:003.7[facility] IrsdituMZGCQGNXFT2311-98-26 17:33:000.7[facility] HbjxnroXAMXQYGQTD3556-92-14 17:33:001.9[facility] IRFMGMPZYT2239-50-92 17:33:002.2[facility] GaztexxYSPBZIAISF5095-34-40 17:33:00 12.5[facility] RuvtljcGOFMWJHMEN7642-22-90 17:33:000.0[facility] HermannHEMATOLOGY 2015-02-24 17:33:000.1[facility] QykpqblVTZVYFTDID9182-96-46 17:33:000.8[facility] AkgygylPRWHGIRZXZ7315-02-92 17:33:008.8[facility] WjlsfnpVJCMIVZTOH2326-77-72 17:33:00 Test Item Value Reference Range Interpretation Comments MCH (test code = MCH) 28.1 pg 27.0-31.0 [facility] CenerppAKGVJAVHMC2056-34-31 17:33:0014.8[facility] HermannHEMATOLOGY 2015-02-24 17:33:0032.2[facility] UqxchpkSLSXNCYOJL1404-29-03 17:33:45795Nnttarwi OpclqekIFHFIURQAO0507-75-76 17:33:0011.4[facility] BveeplrACMGCJAXAA5650-51-68 17:33:004.04[facility] QqhsxdpTRDZHXAUXI4468-25-00 17:33:006.5[facility] WVWZGPCLZM6572-18-92 17:33:0035.3[facility] IoegnxsBRCIIBXUCF5302-79-80 17:33:00 87.2[facility] HermannCARDIAC FFCZBTV4055-93-39 09:54:006[facility]annCARDIAC RZBKZJZ1007-98-75 09:54:00<0.02[facility]annCARDIAC DYBFPVM8802-77-73 09:54:001.0[facility]annCARDIAC GWKUAPK0133-84-47 09:54:0077[facility] CHEM WAXBA9906-33-86 09:54:001.8[facility] HermannCHEM YUPOO3858-86-72 09:54:55198 [facility]annCHEM CVVID2074-56-03 09:54:84542Mgxykbzo HermannCHEM PANEL 2015-02-17 09:54:003.8[facility] HermannCHEM FUHJI6757-76-30 09:54:00402Knyfshle HermannCHEM GJAFI7832-57-53 09:54:008.6[facility] HermannCHEM AIOXE4060-05-45 09:54:0011.8[facility] HermannCHEM AXTAV4451-76-78 09:54:0025[facility]annCHEM NKKRZ4320-78-99 09:54:000.6[facility] HermannCHEM NQVNF6517-02-47 09:54:006 [facility]annCHEM DQJNB7158-67-24 09:54:0072[facility]annHEMATOLOGY 2015-02-17 09:54:0011.5[facility] ScaecdlZBXSDI4377-65-08 09:54:0051[facility] IwrbxlnYRCVMU3090-20-90 09:54:0017[facility] YnxpnzkKBIAED3450-84-83 09:54:0096 [facility] BcagwwxWOVECR3343-94-11 09:54:20688Wsuuqcld YfqqphzPMWWTG6972-61-26 09:54:0084[facility] SwkubajFOODBK5209-71-20 09:54:003.22[facility] HermannSPECIAL NDMHZCEPD1886-96-65 09:54:005.8[facility]annCARDIAC GTZYJRO0896-91-66 04:20:00<0.02[facility]annCARDIAC BEDXGYR7748-74-74 04:20:0092[facility]annCARDIAC RBRLLIH5718-76-73 04:20:001.2[facility]annCARDIAC ENZYMES 2015-02-16 22:59:001.2[facility]annCARDIAC KXHPOLB3005-42-61 22:59:001.3 [facility]annCARDIAC AFQEEQH8174-28-87 22:59:0093[facility]annCARDIAC UINLFIZ1818-25-61 22:59:00<0.02[facility]annCARDIAC UEBIJTR5373-19-96 22:59:004[facility] HermannCHEM BSCZJ9511-32-47 22:59:39925Cffemjwp HermannCHEM KBXTG2319-78-68 22:59:001.0[facility] HermannCHEM TOULA8053-23-16 22:59:003.6 [facility]annCHEM XOEHS2456-62-18 22:59:000.4[facility] HermannCHEM PANEL 2015-02-16 22:59:000.1[facility] HermannCHEM UWTOO7403-97-98 22:59:000.5[facility] HermannCHEM GAHUI0933-22-94 22:59:007.3[facility] HermannCHEM XXWVC8419-19-64 22:59:32956Nminvdic HermannCHEM MMHGJ8443-62-31 22:59:0015[facility] HermannCHEM OCZWY7979-22-23 22:59:0021[facility] HermannCHEM JQYWL2102-67-71 22:59:003.7 [facility]annCHEM DVIIU5502-39-42 22:59:003.1[facility] HermannCHEM PANEL 2015-02-16 22:59:001.9[facility] HermannCHEM YAAQZ1234-21-12 22:59:0090[facility] HermannCHEM SYLJB2851-10-07 22:59:009.0[facility] HermannCHEM GMRUO0102-40-85 22:59:0028[facility]annCHEM UVFVD5344-70-15 22:59:18409Suypharp HermannCHEM QPSMW3978-17-29 22:59:000.8[facility] HermannCHEM ALZLE6704-22-04 22:59:0011 [facility]annCHEM TEPHV8814-35-05 22:59:003.5[facility] HermannCHEM PANEL 2015-02-16 22:59:45460Rigbkolx HermannCHEM YAQRX3220-63-97 22:59:0076[facility] HermannCHEM GWZEM6754-42-74 22:59:007.5[facility] IpwcizsPWDTASYTZL9855-98-08 22:59:003.3[facility] DvqezmvOYEPUQTBYK3693-55-24 22:59:009.1[facility] JPZZXKRBHC1896-96-69 22:59:0028.9[facility] HmunbefKOXLDXDFCH6168-14-45 22:59:00 58.3[facility] HecagtuGCGNKFPPRQ8226-05-24 22:59:003.8[facility] HermannHEMATOLOGY 2015-02-16 22:59:000.4[facility] TvodrzqHFVENNPQMG2075-29-94 22:59:000.6[facility] PjpqqntSVIQPBZRFV1526-04-14 22:59:001.9[facility] TqbvquqYAJDWMZYIW4313-73-34 22:59:000.2[facility] PelirkbBILUJBSVUJ5313-78-30 22:59:000.0[facility] CXAZRVUSOK4447-97-19 22:59:00 Test Item Value Reference Range Interpretation Comments PTT (test code = PTT) 36.0 s 22.9-35.8 [facility] QntffnwMRZOIVPHRL6631-30-69 22:59:00 Test Item Value Reference Range Interpretation Comments PT (test code = PT) 12.9 s 12.0-14.7 [facility] BnbstefZALPCVEDWG1138-99-06 22:59:000.97[facility] HermannHEMATOLOGY 2015-02-16 22:59:47441Hgfulmid MwouavoLKOIZYPPWA6288-81-87 22:59:0014.7[facility] PqxngozFVEPNDXLIR0377-11-15 22:59:008.7[facility] HmghubiMQWVKPZBOU8584-41-53 22:59:0032.6[facility] RvfskzcYDMSHEXHIO7305-79-85 22:59:0039.5[facility] KTHNSWNASU0396-68-35 22:59:0087.3[facility] EfhndsxJRZVWIUJPV0602-41-97 22:59:00 Test Item Value Reference Range Interpretation Comments MCH (test code = MCH) 28.4 pg 27.0-31.0 [facility] TgloqncVISMEJQDOS8195-12-17 22:59:004.52[facility] HermannHEMATOLOGY 2015-02-16 22:59:0012.9[facility] KmasefaZYKMJPMVGD8608-94-75 22:59:006.5[facility] NiytllrPODEUYBBG8675-67-38 22:59:0046[facility]annCARDIAC IBQSXTR4467-85-29 21:17:0015[facility]annCARDIAC CDJQXVQ8423-99-34 21:17:00<0.02[facility]annCARDIAC BZMAGJB7115-88-06 21:17:0080[facility]annCARDIAC ENZYMES 2013-12-22 21:17:00<0.5[facility]annCARDIAC ABMEQYU6573-47-34 21:17:00 <0.6[facility] HermannCHEM KJPSL9494-49-68 21:17:14980Sezqjgsp HermannCHEM EHANX9166-52-68 21:17:003.6[facility] HermannCHEM YIJGO7898-60-39 21:17:0017 [facility]annCHEM TWFXM3933-04-66 21:17:001.1[facility] HermannCHEM PANEL 2013-12-22 21:17:66977Nkpwgpia HermannCHEM VNZFY6256-81-43 21:17:0034[facility] HermannCHEM RSURF6504-41-66 21:17:003.9[facility] HermannCHEM PFTOY2625-88-76 21:17:0089[facility] HermannCHEM GVALD1923-83-07 21:17:0022[facility] HermannCHEM XQAEY6740-34-83 21:17:000.6[facility] HermannCHEM JBADT0651-69-28 21:17:005.5 [facility]annCHEM LUTGF7161-52-50 21:17:000.6[facility] HermannCHEM PANEL 2013-12-22 21:17:0010[facility] HermannCHEM FTQXW1805-59-35 21:17:003.5[facility] HermannCHEM XIBNV6071-58-26 21:17:12075Sibctnrs HermannCHEM PNEIK0754-34-17 21:17:72004Lwobsjbi HermannCHEM OUHXQ3939-90-48 21:17:0029[facility] HermannCHEM EFJRN4700-59-05 21:17:007.5[facility] HermannCHEM BHCRF4722-73-39 21:17:009.2 [facility]annDRUG OQWUXE2620-23-69 21:17:00Negative *NA*(12/22/13 4:17 PM) [facility]DR[facility] ZNDDPN6227-51-82 21:17:00Negative *NA*(12/22/13 4:17 PM) [facility]DR[facility] YGEBNV0437-75-46 21:17:00See Note 4*NA*(12/22/13 4:17 PM) [facility]DR[facility] XWBPEQ7413-75-40 21:17:00Negative *NA*(12/22/13 4:17 PM) [facility]DR[facility] MDENBQ6679-43-67 21:17:00Negative *NA*(12/22/13 4:17 PM) [facility] YRRSJD5431-70-60 21:17:00Negative *NA*(12/22/13 4:17 PM) [facility] CJNAHD4084-36-58 21:17:00Negative *NA*(12/22/13 4:17 PM) [facility]DR[facility] BDZOXL0295-62-47 21:17:00Negative *NA*(12/22/13 4:17 PM) [facility] HsoxhgiMBMCZWKAKV4649-90-05 21:17:00 Test Item Value Reference Range Interpretation Comments PTT (test code = PTT) 35.2 s 22.9-35.8 [facility] OyhtegeGYJBZRCKKZ1916-10-35 21:17:00 Test Item Value Reference Range Interpretation Comments PT (test code = PT) 12.2 s 12.0-14.7 [facility] UagpweoWTYXYBHIGL9601-19-95 21:17:000.91[facility] HermannHEMATOLOGY 2013-12-22 21:17:008.4[facility] LapztboOHAXDZURWS0456-32-05 21:17:00 Test Item Value Reference Range Interpretation Comments MCH (test code = MCH) 29.2 pg 27.0-31.0 [facility] ZbvwuaoXAISVPOLTK0346-15-69 21:17:0033.4[facility] HermannHEMATOLOGY 2013-12-22 21:17:0014.5[facility] HouduhpYDEHXLLGMT9731-96-70 21:17:02566Ttdhssmc WartfrkQANHLZMXJO1512-91-53 21:17:0041.6[facility] DglkypkEDBRMWQQBE0537-48-76 21:17:0087.5[facility] VbhwvccZBNLAMMYPU5731-38-19 21:17:004.76[facility] UVRADGPGFO6634-68-06 21:17:0013.9[facility] CowcnmsLGUCRCSRTT2660-51-89 21:17:00 8.5[facility] QqraplmCADEDZUFXY5568-59-59 21:17:000.2[facility] HermannHEMATOLOGY 2013-12-22 21:17:000.0[facility] AeyiyiePGXBPNKBWF6374-07-49 21:17:0066.1[facility] KpzlymoTKQQMIINJE3258-32-08 21:17:006.1[facility] YoisodqJWSPIERLUQ2391-54-52 21:17:0025.0[facility] GgsowwhYESUVWRVFU6131-21-06 21:17:002.4[facility] JBJQXAPHUB5217-11-43 21:17:000.4[facility] NlrfqsyGOHVLDBHEI2839-68-56 21:17:002.1 [facility] IwszqotGVBLBFCWIL1810-37-18 21:17:000.5[facility] HermannHEMATOLOGY 2013-12-22 21:17:005.6[facility]annURINE AND NLPDT6279-04-79 21:17:00Trace *ABN*(12/22/13 4:17 PM)[facility] APQQN0538-38-36 21:17:00Negative *NA*(12/22/13 4:17 PM)[facility] ZJNPB0649-41-98 21:17:000.2 [facility] MMLUU4068-39-70 21:17:00Small *ABN*(12/22/13 4:17 PM) [facility] SJCHB5491-08-80 21:17:00Negative *NA*(12/22/13 4:17 PM) [facility] DFBIT3064-37-27 21:17:00Negative (12/22/13 4:17 PM) [facility] KXUIA9746-62-89 21:17:00Clear (12/22/13 4:17 PM) [facility] ENPGJ3912-02-36 21:17:00Yellow *NA*(12/22/13 4:17 PM) [facility] QXTMR1710-34-85 21:17:00 Test Item Value Reference Range Interpretation Comments UA pH (test code = UA pH) 6.0 1 5.0-8.0 [facility] YDTSM0117-15-66 21:17:00 Test Item Value Reference Range Interpretation Comments UA Spec Grav (test code = UA Spec 1.015 1 Grav) [facility] VVBRJ1896-98-35 21:17:00Negative (12/22/13 4:17 PM) [facility] ESUQV3392-39-88 21:17:00Negative (12/22/13 4:17 PM) [facility]annCHEM IJYCD7343-60-96 15:55:312.7[facility] HermannCHEM PANEL 2013-12-17 15:55:312.2[facility] RhdvyssDCWDEDQFURWS3178-64-38 15:55:3110.5 [facility] EcrhartRGHUCVKZUCSK9418-11-21 15:55:3191[facility] HermannELECTROLYTES 2013-12-17 15:55:3110[facility] FggejukOEIYIPLHPSFZ9170-87-26 15:55:310.8[facility] RhvwyrqOTQGCGLLCSFK3618-10-32 15:55:30975Mwqchcif DiqqstwVHRFBJAVLBMC2394-98-03 15:55:3187[facility] TvsjpyjDBJBBFRTEHPJ9828-67-85 15:55:3130[facility] JAZCVXFHKKCQ7681-02-00 15:55:314.5[facility] XzfbegtKNOCGHSNYNGT9141-86-42 15:55:51308Mselrvui NslekmsCZSZGYQZQYHH3339-30-28 15:55:318.6[facility] IEAQNWDZPS3105-90-44 15:55:310.97[facility] NeetzjfSIDUQLKXHB0401-96-64 15:55:31 Test Item Value Reference Range Interpretation Comments PTT (test code = PTT) 32.4 s 22.9-35.8 [facility] LlbowdzVFMJRPZCKA8905-77-34 15:55:31 Test Item Value Reference Range Interpretation Comments PT (test code = PT) 12.8 s 12.0-14.7 [facility] IvzixkoJAOESBHLDT2033-83-96 15:55:3113.7[facility] HermannHEMATOLOGY 2013-12-17 15:55:314.88[facility] XykkqoqVQEVCVXMQE4390-52-19 15:55:31 Test Item Value Reference Range Interpretation Comments MCH (test code = MCH) 28.1 pg 27.0-31.0 [facility] XdoebbcRUCYEEPGNF0033-32-22 15:55:3142.1[facility]annHEMATOLOGY 2013-12-17 15:55:3186.4[facility] JjprfvoFHTYEQCUIN6743-57-25 15:55:3114.3[facility] EuzjdkyHSEHOMNVCT0175-08-17 15:55:3132.5[facility] BtxrpssQQFPQROVTG7472-42-08 15:55:318.4[facility] GaluhbuYYNZAGGESQ6769-20-09 15:55:68058Fofcswaa [facility] RRZKHPPTKP2883-38-09 15:55:317.2[facility] YtlvjniJJLLOSAOXK9409-29-67 15:55:31 10.7[facility] YrjqqnyIJHMTLFYMM3332-85-06 15:55:3127.2[facility] HermannHEMATOLOGY 2013-12-17 15:55:311.9[facility] KwvcavaGNJETTYGJL0340-47-92 15:55:313.2[facility] GmqbwodVVEKZPUSZM8912-99-52 15:55:310.6[facility] RqiwfmyMSINRTPXIP5560-42-33 15:55:314.2[facility] JsqumhjAKOMZFBGDY7506-59-30 15:55:310.2[facility] LCVYPTSRAY7236-88-10 15:55:310.8[facility] HkybnpwLKEYPRDOBA4361-26-91 15:55:31 58.3[facility] HermannPARATHYROID QVIKVYX5913-16-70 15:55:191.11[facility] PARATHYROID OJXWCQG8193-67-05 15:55:191.17[facility] HermannDRUG VDGZPU4339-88-74 03:45:57Negative *NA*(12/16/13 10:45 PM)[facility]annDR[facility] OVOHRJ7024-36-67 03:45:57Positive *ABN*(12/16/13 10:45 PM)[facility]annDR[facility] DQLRZK2433-34-21 03:45:57Negative *NA*(12/16/13 10:45 PM)[facility]annDR[facility] DMPPFA8374-17-67 03:45:57Negative *NA*(12/16/13 10:45 PM)[facility]annDR[facility] ZAHWGQ2123-22-39 03:45:57Negative *NA*(12/16/13 10:45 PM)[facility]annDR[facility] IYQIHG4137-73-87 03:45:57See Note 6(12/16/13 10:45 PM)[facility]annDR[facility] VJUSGU7347-33-64 03:45:57Negative *NA*(12/16/13 10:45 PM)[facility]annDR[facility] VZSWOF8763-20-26 03:45:57Negative *NA*(12/16/13 10:45 PM)[facility] HermannCARDIAC GQKWUQF2100-01-40 03:45:0056[facility] HermannCARDIAC NTDHNTZ4028-76-02 03:45:00<0.010[facility] HermannCARDIAC YXGVQVA4498-22-48 03:45:00<0.02[facility] HermannCARDIAC ENZYMES 2013-12-17 03:45:0013[facility] EvtpsasHMHYNO0584-97-63 03:45:0018[facility] XNPMEB6872-92-12 03:45:0088[facility] DoenqezLCJSVA9677-66-48 03:45:0088[facility] PukjghkKIEPVN2323-83-91 03:45:003.08[facility] LgwckyqVJURMD4959-74-49 03:45:17675 [facility] GmnwhicODKWPP3901-56-26 03:45:0051[facility] HermannSPECIAL CHEMISTRY 2013-12-17 03:45:005.3[facility] HermannTHYROID BEJOK7469-16-24 03:45:000.870 [facility]annCARDIAC WWALJHK7106-22-74 22:09:0042[facility] HermannCARDIAC WDIZLAB1803-96-49 22:09:00<0.02[facility] HermannCHEM OKRDS3746-34-56 19:30:00 1.3[facility] SvfqpprTHHTOKSNRI0653-95-71 19:30:00 Test Item Value Reference Range Interpretation Comments PT (test code = PT) 11.8 s 12.0-14.7 [facility] FngqydbBXPTOEBZLS7793-40-02 19:30:000.87[facility] HermannHEMATOLOGY 2013-12-16 19:30:00 Test Item Value Reference Range Interpretation Comments PTT (test code = PTT) 31.2 s 22.9-35.8 [facility] ChygbwnETXGCYJEKO5190-74-41 19:30:004.69[facility] HermannHEMATOLOGY 2013-12-16 19:30:006.6[facility] FxwnditPYODLFKFLN3210-15-80 19:30:0040.5[facility] WbyrrofYIXGYIRZZQ9081-16-36 19:30:0086.4[facility] TnbvfjvRGJZWHAQIK8516-81-89 19:30:0013.6[facility] NtpreqfPTIHNJUAFG9594-42-70 19:30:00 Test Item Value Reference Range Interpretation Comments MCH (test code = MCH) 29.0 pg 27.0-31.0 [facility] TosrjsqOMBNWIARMV6456-24-11 19:30:0033.6[facility] HermannHEMATOLOGY 2013-12-16 19:30:74943Ntruyzgr QhskhfgRXUFREELNC7304-47-86 19:30:0013.4[facility] BhthrvxXEGSUCXVVV2267-88-67 19:30:008.6[facility] FbxcgqcKNFLQXIKCG8608-65-83 19:30:000.8[facility] TftsqxhNFQNHZEFSL3200-47-09 19:30:000.0[facility] ASNBHJXDKN2113-95-22 19:30:0012.1[facility] TfvtzmnYLBSBSJXCE3074-79-08 19:30:00 3.8[facility] FxxxeqsNHJKYMJKQI3910-82-57 19:30:000.6[facility] HermannHEMATOLOGY 2013-12-16 19:30:003.9[facility] ZwkxlxzRWTCLDLOKF1332-39-67 19:30:000.3[facility] BygnuktTWRKWYVHGN7081-26-60 19:30:001.6[facility] BvtutrdKQAVUIWXGF2861-37-01 19:30:0025.0[facility] SupzuuxYXUGYFPCGV7640-24-53 19:30:0058.5[facility] CHEM MIXTE2955-15-23 17:43:2479[facility] HermannCHEM OMVXQ2105-84-38 17:43:240.9 [facility] HermannCHEM XFHOJ7915-56-11 17:43:81238Jshaultw HermannCHEM PANEL 2013-12-16 17:43:244.5[facility] HermannCHEM FERER2347-56-95 17:43:24925Zpsanysd HermannCHEM IYKSH0662-01-65 17:43:2478[facility] HermannCHEM XIRRB9828-71-77 17:43:2411[facility] HermannCHEM SQOXD3939-29-02 17:43:241.0[facility] HermannCHEM FKBYB4949-68-75 17:43:2412[facility] HermannCHEM MXSJI7950-49-26 17:43:243.6 [facility] HermannCHEM CBDDJ9445-98-07 17:43:2416.5[facility] HermannCHEM PANEL 2013-12-16 17:43:247.2[facility] HermannCHEM FRUME0188-91-42 17:43:2419[facility] HermannCHEM XTGKO3624-85-86 17:43:2423[facility] HermannCHEM NLTUA7815-78-32 17:43:249.2[facility] HermannCHEM DEVUK0796-96-33 17:43:240.3[facility] HermannCHE[facility] CRQMW9918-36-37 17:43:243.6[facility]annCHE[facility] NNNBO3980-31-95 17:43:2487 [facility] QBMVX4883-68-79 17:43:2431[facility]annCARDIAC ENZYMES 2013-12-16 17:43:0056[facility] SLYWJXY4417-43-28 17:43:00<0.02 [facility] LJTODSF5656-94-54 19:12:00<0.02[facility] CARDIAC YRFZGLJ5250-10-89 19:12:0049[facility] SZDDJUF9144-86-70 19:12:00<0.010[facility] ResopcdBWYEWHRDK0480-17-64 19:12:0036[facility] CARDIAC ZEQXQLK5608-93-82 12:35:00<0.010[facility] ENZYMES 2013-11-08 12:35:0054[facility] MFKDJJV4478-10-77 12:35:00<0.02 [facility] VIKAFUK4695-32-68 08:36:00<0.02[facility] HZJPFFGFHGFY0450-83-94 08:36:0011.4[facility] OxzxaqpYQMXTDXCYJAL4352-38-86 08:36:0069[facility] BcigmgmIDNRGYHGJCDG5995-93-47 08:36:009.2[facility] GIZYAQWKVUFO9880-20-92 08:36:0027[facility] PlcwifdNCTNHXDVMVFS3829-90-64 08:36:00 105[facility] VlltvnhWBKIOEVXGAWQ0837-46-77 08:36:003.4[facility] DEZPNRFDRPDA9887-41-67 08:36:98170Ydafgtob XnapmdjPKQTMXZSCTBX0729-86-43 08:36:0011[facility] ZlnqpieIGRBYRFEHRHG8675-97-21 08:36:0084[facility] XWUPBGBVTMKL8677-01-78 08:36:001.0[facility] HvyqqnqZMTVMMDCQT7414-65-38 08:36:00 0.1[facility] QlaknjnMNFSEUXWAA2128-01-78 08:36:000.2[facility]annHEMATOLOGY 2013-11-08 08:36:000.8[facility] OqfgwgwNDPBMSXSOU5585-19-13 08:36:0072.5[facility] PjzghouSCJVUVGBQR2462-77-94 08:36:0017.0[facility] UcdepoqFBMIPWCGGO0476-30-10 08:36:002.1[facility] DauqmdxBMCWJOEHZW8129-58-36 08:36:007.8[facility] SAMJUFTIVG3354-65-85 08:36:007.6[facility] RtzcnphTJFAAEKLOS3997-09-09 08:36:000.6 [facility] XqbkwqfLHCGGZVPJX8161-46-82 08:36:001.8[facility]annHEMATOLOGY 2013-11-08 08:36:008.7[facility] AjitngiVPIJIUZVRM0747-32-89 08:36:0014.0[facility] XxhxvqeGMEQPAKXTC2060-20-63 08:36:96903Wnkoryld UxlkkvuKAQNNGAUJB6094-24-61 08:36:0033.9[facility] YlwnksbRWUZFXEKAS6921-04-34 08:36:004.65[facility] ZGCSMPRIUW2063-99-64 08:36:0010.6[facility] KvdtgwoNGQSRXLWLQ2690-06-77 08:36:00 Test Item Value Reference Range Interpretation Comments MCH (test code = MCH) 29.3 pg 27.0-31.0 [facility] IdyhwwuKZEVCIGNWP3105-90-44 08:36:0086.6[facility]annHEMATOLOGY 2013-11-08 08:36:0013.6[facility] JyluzuhVANJSSBJPC8331-85-97 08:36:0040.2[facility]
[2020-10-22 19:48] LABS: Absolute Lymphocytes (CBC) 1.7 K/uL (0.7-4.9); Hematocrit 39.5 % (36.0-45.0); Lymphocytes % 23.5 % (15.3-44.8); MPV 8.3 fL (7.6-11.3); RBC Red Blood Cell Count 4.63 M/uL (3.86-4.86)
[2020-10-22 20:04] LABS: ALT/SGPT 19 U/L (12-78); AST/SGOT 19 U/L (15-37); Albumin 3.8 g/dL (3.4-5.0); Alkaline Phosphatase 86 U/L (45-117); BUN Blood Urea Nitrogen 14 mg/dL (7-18); Bicarbonate 27 mmol/L (21-32); Bilirubin Direct < 0.1 mg/dL (0-0.2); Bilirubin Total 0.4 mg/dL (0.2-1.0); Glucose Level 129 mg/dL (74-106); Lipase 284 U/L (73-393); Potassium 3.6 mmol/L (3.5-5.1); Protein, Total 7.4 g/dL (6.4-8.2); Sodium Level 142 mmol/L (136-145)
[2020-10-22] MEDS ORDERED: MORPHINE 4 MG/ML SYR ONE (20:23)
[2020-10-22] MEDS ORDERED: ONDANSETRON 4 MG/2 ML VIAL ONE (20:23)
[2020-10-22 20:48] LABS: Urine Blood NEGATIVE (NEG); Urine Glucose NEGATIVE (NEG); Urine Protein NEGATIVE (NEG)
--- NOTE | 2020-10-22 20:50 | RAD REPORT ---
EXAM DESCRIPTION: CTAbdomen Pelvis W Contrast - 10/22/2020 8:43 pm CLINICAL HISTORY: Abdominal pain. abdominal pain COMPARISON: <Comparisons> TECHNIQUE: Biphasic CT imaging of the abdomen and pelvis was performed with 100 ml non-ionic IV cont rast. All CT scans are performed using dose optimization technique as appropriate and may include automated exposure control or mA/KV adjustment according to patient size. FINDINGS: The lung bases are clear. The liver, spleen, pancreas, adrenal glands are within normal limits. Punctate bilateral nephrolithia sis without hydronephrosis. No bowel obstruction, free air, free fluid or abscess. Prominent stool is present throughout the colo n. The appendix is normal. No evidence of significant lymphadenopathy. Hardware is present in the lumbar spine. Multi fibroid uterus is present. Trace pelvic free fluid. IMPRESSION: Punctate bilateral nephrolithiasis without hydronephrosis. Moderate fecal retention. Multi fibroid uterus.
--- NOTE | 2020-10-22 20:56 | ER ---
Nurse's Notes [facility] Name: Winsome Yepez Age: 70 yrs Sex: Female : 1950 Arrival Date: 10/22/2020 Time: 18:53 Bed 20 Private MD: Diagnosis: Lower abdominal pain, unspecified Presentation: 10/22 18:54 Chief complaint: EMS states: BLEEDING ON TISSUE WHEN WIPING AFTER USING BATHROOM. bp Coronavirus screen: At this time, the client does not indicate any symptoms associated with coronavirus-19. Ebola Screen: No symptoms or risks identified at this time. Initial Sepsis Screen: Does the patient meet any 2 criteria? No. Patient's initial sepsis screen is negative. Initial Sepsis Screen: Does the patient have a suspected source of infection? No. Patient's initial sepsis screen is negative. Risk Assessment: Do you want to hurt yourself or someone else? Patient reports no desire to harm self or others. Onset of symptoms is unknown. Care prior to arrival: Glucose check: 112. 18:54 Method Of Arrival: EMS: [facility] bp 18:54 Acuity: CYNTHIA 3 bp Triage Assessment: 19:00 General: Appears distressed, uncomfortable, unkempt, Behavior is cooperative, bp appropriate for age, anxious. Pain: Denies pain. EENT: No deficits noted. Neuro: No deficits noted. Cardiovascular: No deficits noted. Respiratory: No deficits noted. GI: Reports rectal bleeding. : Reports HEMATURIA. Derm: No deficits noted. Musculoskeletal: No deficits noted. Historical: - Allergies: 19:02 PENICILLINS; bp - Home Meds: 19:02 Unable to obtain [Active]; bp - PMHx: 19:02 Asthma; High Cholesterol; Hypertension; Myocardial infarction; Sickle Cell; bp - Social history:: Smoking status: unknown. Screenin:00 Abuse screen: Denies threats or abuse. Denies injuries from another. Nutritional bp screening: No deficits noted. Tuberculosis screening: No symptoms or risk factors identified. Fall Risk None identified. Assessment: 19:00 General: SEE TRIAGE NOTE. bp Vital Signs: 18:54 BP 134 / 66; Pulse 86; Resp 18; Pulse Ox 100% ; bp ED Course: 18:53 Patient arrived in ED. bp 18:57 Koby Gilmore PA is PHCP. [facility] 18:57 Julio Garcia MD is Attending Physician. [facility] 19:00 Triage completed. bp 19:00 Arm band placed on. bp 19:00 Patient has correct armband on for positive identification. Bed in low position. Call bp light in reach. Side rails up X2. 19:01 Fox Jones, RN is Primary Nurse. bp 19:40 Inserted saline lock: 20 gauge in right antecubital area, using aseptic technique. 4 Blood collected. 20:43 CT Abd/Pelvis - IV Contrast Only In Process Unspecified. EDMS Administered Medications: 21:46 Drug: morphine 4 mg Route: IVP; Site: right forearm; ll2 21:46 Drug: Zofran (Ondansetron) 4 mg Route: IVP; Site: right forearm; ll2 Outcome: 20:55 Discharge ordered by . [facility] 21:47 Patient left the ED. ll2 Signatures: Dispatcher [employer] EDMS Koby Gilmore PA PA [facility] Fox Jones, RN RN Cristino Merlos [facility] Garsia RN RN ll2 Corrections: (The following items were deleted from the chart) 19:28 19:27 Arm band placed on bp bp
--- NOTE | 2020-10-22 20:56 | EDPHYS ---
Physician Documentation [facility] Name: Winsome Yepez Age: 70 yrs Sex: Female : 1950 Arrival Date: 10/22/2020 Time: 18:53 Bed 20 Private MD: ED Physician Julio Garcia HPI: 10/22 19:28 This 70 yrs old Black Female presents to ER via EMS with complaints of hematuria, jmm abdominal pain. 19:30 Onset: The symptoms/episode began/occurred today. The symptoms radiate to the left m flank. Associated signs and symptoms: Pertinent negatives: fever, vomiting. The symptoms are described as achy, sharp. This is a 70 year old female with a history of asthma, htn, CAD that presents to the ED with complaints of left flank pain, abdominal pain, and blood in urine. Denies fever, vomiting. Patient has had similar episodes before. . Historical: - Allergies: 19:02 PENICILLINS; bp - Home Meds: 19:02 Unable to obtain [Active]; bp - PMHx: 19:02 Asthma; High Cholesterol; Hypertension; Myocardial infarction; Sickle Cell; bp - Social history:: Smoking status: unknown. ROS: 19:30 Constitutional: Negative for fever, chills, and weight loss, Cardiovascular: Negative jmm for chest pain, palpitations, and edema, Respiratory: Negative for shortness of breath, cough, wheezing, and pleuritic chest pain. 19:30 Abdomen/GI: Positive for abdominal pain. 19:30 : Positive for urinary symptoms. 19:30 All other systems are negative. Exam: 19:30 Constitutional: This is a well developed, well nourished patient who is awake, alert, jmm and in no acute distress. Head/Face: atraumatic. Eyes: EOMI, no conjunctival erythema appreciated ENT: Moist Mucus Membranes Neck: Trachea midline, Supple Chest/axilla: Normal chest wall appearance and motion. Cardiovascular: Regular rate and rhythm. No edema appreciated Respiratory: Normal respirations, no respiratory distress appreciated 19:30 Back: Normal ROM Skin: General appearance color normal MS/ Extremity: Moves all extremities, no obvious deformities appreciated, no edema noted to the lower extremities Neuro: Awake and alert, normal gait Psych: Behavior is normal, Mood is normal, Patient is cooperative and pleasant 19:30 Abdomen/GI: Inspection: abdomen appears normal, Bowel sounds: normal, Palpation: soft, mild abdominal tenderness, in the right lower quadrant and left lower quadrant. Vital Signs: 18:54 BP 134 / 66; Pulse 86; Resp 18; Pulse Ox 100% ; bp MDM: 19:14 Patient medically screened. [facility] 20:52 Data reviewed: vital signs, nurses notes. Counseling: I had a detailed discussion with [facility] the patient and/or guardian regarding: the historical points, exam findings, and any diagnostic results supporting the discharge/admit diagnosis, lab results, radiology results, the need for outpatient follow up, to return to the emergency department if symptoms worsen or persist or if there are any questions or concerns that arise at home. ED course: Labs and imaging studies are negative. Patient is advised to follow up with [facility] for further evaluation. Patient advised to return to the ED if pain increases, fever develops or if she has any other concerning symptoms. Patient understood and agrees with the plan of care. . 10/22 19:15 Order name: Basic Metabolic Panel; Complete Time: 20:13 [facility] 10/22 19:15 Order name: CBC with Diff; Complete Time: 19:51 [facility] 10/22 19:15 Order name: Hepatic Function; Complete Time: 20:13 [facility] 10/22 19:15 Order name: Lipase; Complete Time: 20:13 [facility] 10/22 19:52 Order name: CT Abd/Pelvis - IV Contrast Only; Complete Time: 20:51 [facility] 10/22 20:13 Order name: Urine Dipstick--Ancillary (enter results); Complete Time: 20:51 [facility] 10/22 19:15 Order name: IV Saline Lock; Complete Time: 19:39 [facility] 10/22 19:15 Order name: Labs collected and sent; Complete Time: 19:39 [facility] Administered Medications: 21:46 Drug: morphine 4 mg Route: IVP; Site: right forearm; ll2 21:46 Drug: Zofran (Ondansetron) 4 mg Route: IVP; Site: right forearm; ll2 Disposition: 10/22/20 20:55 Discharged to Home. Impression: Lower abdominal pain, unspecified. - Condition is Stable. - Discharge Instructions: Abdominal Pain, Adult. - Prescriptions for Ultracet 37.5- 325 mg Oral Tablet - take 1 tablet by ORAL route every 6 hours - for up to 5 days; do not exceed 8 tablets per day.; 12 tablet. - Medication Reconciliation Form, Thank You Letter, Antibiotic Education, Prescription Opioid Use form. - Follow up: Private Physician; When: 2 - 3 days; Reason: Recheck today's complaints, Continuance of care, Re-evaluation by your physician. Addendum: 10/27/2020 16:06 Co-signature as Attending Physician, Julio Garcia MD. r n Signatures: Dispatcher [employer] EDMS Koby Gilmore PA PA jmm Nieto, Roman, MD MD rn Fox Jones, RN RN bp Seble Garsia RN RN ll2 Corrections: (The following items were deleted from the chart) 10/22 21:47 20:55 10/22/2020 20:55 Discharged to Home. Impression: Lower abdominal pain, ll2 unspecified. Condition is Stable. Forms are Medication Reconciliation Form, Thank You Letter, Antibiotic Education, Prescription Opioid Use. Follow up: Private Physician; When: 2 - 3 days; Reason: Recheck today's complaints, Continuance of care, Re-evaluation by your physician. [facility]
[2020-10-23 00:31] VITALS: BP 134/66; O2SAT 100
== END 2020-10-22 21:47 | disposition home or self-care (01) ==
LOC: ER 18:44
DX: R10.30 Lower abdominal pain, unspecified (principal); I10 Essential (primary) hypertension; Z88.0 Allergy status to penicillin
CPT/HCPCS: 85025; 80048; 36415; 80076; 81003; 83690; 74177; 96375; 96374; 99284; Q9967; J2405

== ENCOUNTER 2020-12-15 14:51 | Emergency (ER) | payer OTHER ==
--- OUTSIDE RECORDS SUMMARY | 2020-12-15 15:02 | XMS REPORT | Continuity of Care Document ---
:1950 Author Organization [facility] t Address [address] [place] [address] Care Team Providers Name Role Phone UNKNOWN [...] Memoria PAIN 5-24 13:12:00 l UPPER 00:00: [place] ABD PAIN 00 Active 01/19/2017 [facility] CHEST PAIN Diagnosis Active 2017-01-16 Memoria 5-21 20:56:00 l CHEST 00:00: [place] PAIN 00 Active 01/16/2017 [facility] PAIN Diagnosis Active 2016-11-28 Mem oria 4-02 20:00:00 l PAIN 00:00: [place] 00 [facility] Diagnosis Active 2016-11-06 Mem oria SWELLING 3-11 18:35:00 l FACIAL 00:00: [place] SWELLING 00 Active 11/06/2016 [facility] SYNCOPE Diagnosis Active 2017-02-18 Me moria 2-12 10:16:00 l SYNCOPE 00:00: [place] 00 Active 10/10/2016 [facility] SICK Diagnosis Active 2017-0 2016-10-10 Mem oria 2-12 20:58:00 l SICK 00:00: [place] 00 Active 10/10/2016 [facility] CHEST Diagnosis Active 2016-03-12 Mem oria PAIN, 7-14 12:26:00 l HYPOTENSIO CHEST 00:00: Caroline nn N PAIN, 00 HYPOTENSIO N Active 03/11/2016 [facility] SOB Diagnosis Active 2016-03-11 Mem oria 7-14 15:11:00 l SOB 00:00: [place] 00 Active 03/11/2016 [facility] BACK PAIN Diagnosis Active 2016-10-12 Memoria 1-17 14:26:00 l BACK 00:00: [place] PAIN 00 Active 09/14/2015 [facility] COPD, Diagnosis Active 2015-09-05 Mem oria CHEST PAIN 09-03 15:21:00 l COPD, 00:00: Maciej CHEST PAIN 00 Active 09/03/2015 [facility] HEADACHE Diagnosis Active 2014-082015-07-15 M emoria 09-14 17:17:00 l HEADACHE 00:00: Kristopher n 00 Active 07/15/2015 [facility] SOB/ Diagnosis Active 2014-082015-07-05 Mem oria WEAKNESS 09-03 01:33:00 l SOB/ 22:00: [place] WEAKNESS 00 Active 07/04/2015 [facility] LOWER BACK Diagnosis Active 2014-082015-07-11 Memoria AND LEG 1 13:07:00 l PAIN LOWER 00:00: [place] BACK AND 00 LEG PAIN Active 07/04/2015 [facility] SHORTNESS Diagnosis Active 2014-082015-06-04 Memoria OF BREATH 0-06 01:54:00 l 19:00: [place] SHORTNESS 00 OF BREATH Active 06/03/2015 [facility] NAUSEA Diagnosis Active 2015-05-20 Mem oria 05-18 07:49:00 l NAUSEA 00:00: [place] 00 Active 05/18/2015 [facility] FALL Diagnosis Active 2015-05-02 Mem oria 05-02 16:55:00 l FALL 00:00: [place] 00 Active 05/02/2015 [facility] NECK AND Diagnosis Active 2015-03-30 M emoria SHOULDER 03-30 16:35:00 l PAIN NECK AND 00:00: Kristopher n SHOULDER 00 PAIN Active 03/30/2015 [facility] SOB/CHEST Diagnosis Active 2015-03-21 Memoria PAIN 03-21 15:46:00 l 00:00: [place] SOB/CHEST 00 PAIN Active 03/21/2015 [facility] HYPOTENSIO Diagnosis Active 2015-03-31 Memoria N, CHEST 03-21 11:41:00 l PAIN 00:00: [place] HYPOTENSIO 00 N, CHEST PAIN Active 03/21/2015 [facility] LOWER BACK Diagnosis Active 2015-03-11 Memoria PAIN 03-11 15:56:00 l LOWER 00:00: [place] BACK PAIN 00 Active 03/11/2015 [facility] UPPER BACK Diagnosis Active 2015-02-24 Memoria PAIN 02-24 15:44:00 l UPPER 00:00: [place] BACK PAIN 00 Active 02/24/2015 [facility] ACUTE Diagnosis Active 2015-02-26 Mem oria CHEST PAIN 02-24 09:02:00 l ACUTE 00:00: [place] CHEST PAIN 00 Active 02/24/2015 [facility] UNSTABLE Diagnosis Active 2015-02-19 M emoria ANGINA; 02-16 13:44:00 l HYPOTENSIO UNSTABLE 00:00: He rmann N ANGINA; 00 HYPOTENSIO N Active 02/16/2015 [facility] CHEST/LEG Diagnosis Active 2013-12-22 Memoria PAIN 12-22 18:23:00 l 00:00: [place] CHEST/LEG 00 PAIN Active 12/22/2013 [facility] OTHER Diagnosis Active 2013-12-16 Mem oria 4-20 20:50:00 l OTHER 00:00: [place] 00 Active 12/16/2013 [facility] ACS Diagnosis Active 2013-12-18 Mem oria 4- 15:44:00 l ACS 00:00: [place] 00 Active 12/16/2013 [facility] Stented Problem Resolve 2017-01-22 Mem oria coronary d 04:26:21 l artery Stented [place] (finding) coronary artery (finding) Resolved Problem 01/22/2017 [facility], [facility] Asthma Problem Active 2017-01-22 Memor ia (disorder) 04:26:21 l Asthma [place] (disorder) Active Problem 01/22/2017 [facility], [facility] Cardiac Problem Active 2017-01-22 Eleazar hilton chest pain 04:26:21 l (finding) Cardiac Herm sho chest pain (finding) Active Problem 01/22/2017 [facility], [facility] Hypertensi Problem Active 2017-01-22 M emoria ve 04:26:21 l disorder, Maciej systemic Hypertensi arterial ve (disorder) disorder, systemic arterial (disorder) Active Problem 01/22/2017 [facility], [facility] Hyperlipid Problem Active 2017-01-22 M emoria emia 04:26:21 l (disorder) Kristopher n Hyperlipid emia (disorder) Active Problem 01/22/2017 [facility], [facility] Myocardial Problem Active 2017-01-22 M emoria infarction 04:26:21 l (disorder) Kristopher n Myocardial infarction (disorder) Active Problem 01/22/2017 [facility], [facility] Smoking Problem Active 2017-01-22 Eleazar hilton cessation 04:26:21 l advice Smoking [place] (regime/th cessation erapy) advice (regime/th erapy) Active Problem 01/22/2017 [facility], [facility] Substance Problem Active 2017-01-22 Me moria abuse 04:26:21 l (disorder) Kristopher n Substance abuse (disorder) Active Problem 01/22/2017 [facility] Tissue Problem Active 2017-01-22 Memor ia perfusion 04:26:21 l measure Tissue [place] (observabl perfusion e entity) measure (observabl e entity) Active Problem 01/22/2017 [facility], [facility] Heart Problem Active 2013-12-28 Memor ia disease 01:02:24 l (disorder) Heart Craoline nn disease (disorder) Active Problem 12/28/2013 [facility] INTERMED Diagnosis Active 2013-12-18 M emoria CORONARY 15:44:00 l SYND INTERMED Kristopher n CORONARY SYND Active [facility] ANGINA Diagnosis Active 2015-02-19 Mem oria DECUBITUS 13:44:00 l ANGINA [place] DECUBITUS Active [facility] HYPOTENSIO Diagnosis Active 2015-03-31 Memoria N NOS 11:41:00 l [place] HYPOTENSIO N NOS Active [facility] SYNCOPE Diagnosis Active 2017-02-18 Me moria AND 10:16:00 l COLLAPSE SYNCOPE Caroline nn AND COLLAPSE Active [facility] History of Past Illness Condition Condition Condition Status Onset Resolution Last Treating Co mments Source Name Details Category Date Date Treatment Clinician Date Chest Problem 2017-01-19 2017-01-19 M emoria pain, 01-16 00:39:08 00:39:08 l unspecifie Chest 05:00: Caroline nn d pain, 00 unspecifie d 01/16/2017 01/19/2017 [facility] Urinary Problem 2016-12-01 2016-12-01 Memoria tract 4- 00:38:41 00:38:41 l infection, Urinary 05:00: Her farooq site not tract 00 specified infection, site not specified 11/28/2016 12/01/2016 [facility] Dorsalgia, Problem 2016-12-01 2016-12-01 Memoria unspecifie 4- 00:38:41 00:38:41 l d 05:00: Maciej Dorsalgia, 00 unspecifie d 11/28/2016 12/01/2016 [facility] Bitten or Problem 2016-11-09 2016-11-09 Memoria stung by 3-11 03:02:23 03:02:23 l nonvenomou Bitten 06:00: Herm sho s insect or stung 00 and other by nonvenomou nonvenomou s s insect arthropods and other , initial nonvenomou encounter s arthropods , initial encounter 11/06/2016 11/09/2016 [facility] Discharge Problem 2016-04-17 2016-04-17 Memoria Diagnosis: 04-14 03:14:09 03:14:09 l Syncope, 05:00: Maciej near Discharge 00 Diagnosis: Syncope, near 04/14/2016 04/17/2016 [facility] Discharge Problem 2016-03-08 2016-03-08 Memoria Diagnosis: 03-05 04:59:23 04:59:23 l Trichomona 05:00: Kristopher n s Discharge 00 vaginitis Diagnosis: Trichomona s vaginitis 03/05/2016 03/08/2016 [facility] Discharge Problem 2015-2016-03-08 2016-03-08 Memoria Diagnosis: 03-05 04:59:23 04:59:23 l Lumbago 05:00: [place] Discharge 00 Diagnosis: Lumbago 03/05/2016 03/08/2016 [facility] Discharge Problem 2015-2016-03-03 2016-03-03 Memoria Diagnosis: 02-28 00:43:25 00:43:25 l Bronchitis 05:00: Kristopher n Discharge 00 Diagnosis: Bronchitis 02/29/2016 03/03/2016 [facility] Discharge Problem 2015-05-21 2015-05-21 Memoria Diagnosis: 05-18 01:04:08 01:04:08 l Abdominal 05:00: Maciej pain, Discharge 00 acute, Diagnosis: epigastric Abdominal pain, acute, epigastric 05/18/2015 05/21/2015 [facility] Discharge Problem 2015-05-12 2015-05-12 Memoria Diagnosis: 05-09 07:40:44 07:40:44 l Chest pain 05:00: Kristopher n Discharge 00 Diagnosis: Chest pain 05/09/2015 05/12/2015 [facility] Discharge Problem 2015-05-05 2015-05-05 Memoria Diagnosis: 05-02 10:45:36 10:45:36 l Vertigo 05:00: [place] Discharge 00 Diagnosis: Vertigo 05/02/2015 05/05/2015 [facility] Discharge Problem 2015-05-05 2015-05-05 Memoria Diagnosis: 05-02 10:45:36 10:45:36 l Syncope 05:00: [place] and Discharge 00 collapse Diagnosis: Syncope and collapse 5 05/05/2015 [facility] Discharge Problem 2015-04-14 2015-04-14 Memoria Diagnosis: 04-11 05:25:30 05:25:30 l Knee pain, 05:00: Kristopher n right Discharge 00 Diagnosis: Knee pain, right 04/11/2015 04/14/2015 [facility] Discharge Problem 2015-04-14 2015-04-14 Memoria Diagnosis: 04-11 05:25:30 05:25:30 l Lumbar 05:00: Maciej spondylosi Discharge 00 s Diagnosis: Lumbar spondylosi s 04/11/2015 04/14/2015 [facility] Discharge Problem 2015-04-14 2015-04-14 Memoria Diagnosis: 04-11 05:25:30 05:25:30 l Anterolist 05:00: Kristopher n hesis Discharge 00 Diagnosis: Anterolist hesis 04/11/2015 04/14/2015 [facility] Discharge Problem 2015-04-14 2015-04-14 Memoria Diagnosis: 04-11 05:25:30 05:25:30 l Accidental 05:00: Kristopher n fall Discharge 00 Diagnosis: Accidental fall 04/11/2015 04/14/2015 [facility] Discharge Problem 2015-04-02 2015-04-02 Memoria Diagnosis: 03-30 00:46:48 00:46:48 l Chronic 05:00: [place] pain in Discharge 00 right Diagnosis: shoulder Chronic pain in right shoulder 5 04/02/2015 [facility] Discharge Problem 2015-03-14 2015-03-14 Memoria Diagnosis: 03-11 09:47:20 09:47:20 l Chest wall 05:00: Kristopher n muscle Discharge 00 strain Diagnosis: Chest wall muscle strain 03/11/2015 03/14/2015 [facility] Discharge Problem 2015-03-08 2015-03-08 Memoria Diagnosis: 03-05 04:07:57 04:07:57 l Dyspnea 05:00: [place] Discharge 00 Diagnosis: Dyspnea 03/05/2015 03/08/2015 [facility] Allergies, Adverse Reactions, Alerts Allergy Allergy Status Severity Reaction(s) Onset Inactive Treating Comm ents Source Name Type Date Date Clinician Penicill Propensi Active Justin ins ty to 07 Health adverse 00:00: reaction 00 s to drug penicill penicill Active Pari a ins ins l [place] Social History Social Habit Start Date Stop Date Quantity Comments Source Sex Assigned At [facility] Social History 2016-10-10 2016-10-10 Cinthia murray [...] Cam ris (NAPROSYN) 7-11 bilateral tablet by [employer] 375 mg 00:00: low back mouth 2 tablet 00 pain, with times sciatica daily as presence needed (as unspecified needed for pain). Sodium No 1,000 mL, Memori a Chloride 5-24 2,000 l 0.154 18:00: ml/hr, [place] MEQ/ML 00 Infuse Injectable Over: 30 Solution [...] oria - to exceed l 03:02: 400mg/day. [place] 00 (Same As: Ultram) Albuterol No Notes: Memori a 0.833 MG/ML -03 (Same as: l / 00:23: Duoneb) [place] Ipratropium 00 [place] 0.167 MG/ML Inhalant Solution [DuoNeb] Saline No Notes: Memoria Flush 0.9% -03 preservati l 00:23: ve free. Maciej 00 Mupirocin Yes 1 appl, Memor ia 0.02 MG/MG 3-12 TOP, TID, l Topical 02:49: PRN as [place] Ointment 00 needed, [Bactroban] Apply to affected area(s), X 14 day, # 60 gm, 0 Refill(s) Saline No Notes: Memoria Flush 0.9% 3-12 (Same as: l 00:51: BD [place] 00 Posiflush) atorvastati No Notes: Eleazar hilton n 2-14 Same as l 03:00: Lipitor [place] 00 remove No Notes: Memoria patch 2-14 Remove l 03:00: patch 12 Mac[place] 00 hours after applicatio n each day. metoprolol No Notes: Memor ia tartrate 2-13 (Same as: l 15:00: Lopressor) [place] 00 12.5 mg=1/2 X 50 mg TAB heparin No Notes: Memoria sodium, 2-13 porcine l porcine 15:00: heparin [place] 2500 UNT/ML 00 Injectable Solution Protonix No Notes: Memoria 2-13 Tablet l 15:00: should not [place] 00 [...] Weight 50, kg, Start date: 10/11/16 9:00:00 [employer], Duration: 30 day, Stop date: 11/09/16 17:00:00 [...] 2-13 not exceed l 02:07: 4 gm/day. [place] 00 (Same as: Tylenol) Docusate No Notes: Memoria 2-13 (Same as: l 02:07: Colace) (Do Not Crush) Morphine No Notes: Memoria 2-13 (Same l 02:07: as:MORPhin e Sulfate) Acetaminoph No Notes: Eleazar hilton en 325 MG / 2-13 (Same as: l Hydrocodone 02:07: [place] Caroline nn Bitartrate 00 325/5) Do 5 [...] Weight 50, kg, Start date: 09/15/16 9:00:00 [employer], Duration: 30 day, Stop date: 10/14/16 9:00:00 [employer] tramadol Yes 50 mg = 1 Eleazar hilton hydrochlori 8-17 tab, PO, l de 50 MG 06:12: BID, X 15 Herm sho Oral Tablet 00 day, # 30 tab, 0 Refill(s) Acetaminoph No Notes: Eleazar hilton en 325 MG / 8-17 (Same as: l Hydrocodone 05:13: [place] Caroline nn Bitartrate 00 325/5) Do 5 MG Oral not exceed Tablet 4gm/day of [[place] acetaminop 5/325] hen. atorvastati No Notes: Eleazar hilton n 7-16 (Same as: l 02:00: Lipitor) [place] 00 200 ACTUAT No Notes: Memor ia Albuterol 7-15 Same as: l 0.09 16:00: Ventolin Maciej MG/ACTUAT 00 HFA Metered WASTE: Dose Aerosol - Inhaler Return to [[facility] HFA] Protonix No Notes: Memoria 7-15 Tablet l 15:00: should not [place] 00 be chewed or crushed. (Same as: [...] 0.9% -15 (Same as: l 02:00: BD [place] Posiflush) Saline No Notes: Memoria Flush 0.9% -14 (Same as: l 23:45: BD [place] 00 Posiflush) Sodium No 1,000 mL, Memori a Chloride 14 1,000 l 0.154 20:57: ml/hr, [place] MEQ/ML 00 Infuse Injectable Over: 1 Solution Hour, Route: IV, ONCE, Priority: STAT, Dosing Weight 50 kg, Start date: 03/11/16 15:57:00 CDT, Duration: 1 doses or times, Stop date: 03/11/16 15:57:00 CDT Sodium No 1,000 mL, Memori a Chloride 03-11 1,000 l 0.154 20:56: ml/hr, [place] MEQ/ML 00 Infuse Injectable Over: 1 Solution Hour, Route: IV, ONCE, Priority: STAT, Dosing Weight 50 kg, Start date: 03/11/16 15:56:00 CDT, Duration: 1 doses or times, Stop date: 03/11/16 15:56:00 CDT Saline No Notes: Memoria Flush 0.9% 03-11 (Same as: l 20:05: BD Maciej 00 Posiflush) Nitroglycer No Notes: Eleazar hilton in 03-11 (Same l 20:05: as:Nitroqu [place] ick, Nitrostat) "Do Not Crush" Sublingual tablet [...] / 03-06 (Same as: l Hydrocodone 00:55: [place] Caroline nn Bitartrate 00 325/5) Do 5 MG Oral not exceed Tablet 4gm/day of [[place] acetaminop 5/325] hen. Flagyl No Notes: Memoria 03-06 (Same as: l 00:55: Flagyl) [place] 00 Take with food/ avoid alcohol predniSONE [...] l / 22:53: Duoneb) [place] Ipratropium 00 [place] 0.167 MG/ML Inhalant Solution [DuoNeb] Symbicort Yes [...] tab, PO, l Tablet 13:20: Daily, 0 Mac[place] 00 Refill(s) atorvastati No Notes: Eleazar hilton [...] Memoria 09-04 Tablet l 15:00: should not [place] 00 be chewed or crushed. (Same as: [...] as: l / 14:00: Duoneb) Ipratropium 00 [place] 0.167 MG/ML Inhalant Solution methylPREDN No Notes: Eleazar hilton ISolone 09-04 (Same l SODium 14:00: as:Solu-ME Caroline nn SUCCinate 00 DROL, A-Methapre d) methylPREDN No Notes: Eleazar hilton ISolone 09-04 (Same l SODium 04:05: as:Solu-ME [place] nn SUCCinate 00 DROL, A-Methapre d) Albuterol No Notes: Memori a 0.833 MG/ML 09-04 (Same as: l / 04:05: Duoneb) [place] Ipratropium 00 [place] 0.167 MG/ML Inhalant Solution Saline No Notes: [...] microgram l 0.09 17:40: = 1 puff, [place] MG/ACTUAT 00 INHALATION Metered , Q4H, PRN [...] Memoria 1-18 Tablet l 13:30: should not [place] 00 be chewed or crushed. (Same as: Protonix) Albuterol 2014-08 No Notes: Memori a 0.833 MG/ML 1-18 (Same as: l / 03:38: Duoneb) [place] Ipratropium 00 [place] 0.167 MG/ML Inhalant Solution Sodium 2014-08 No 250 mL, Memoria Chloride 09-15 Route: l 0.9% IV 03:26: IVPB, [place] 00 Start date: 07/15/15 21:26:00, Duration: 30 day, Stop date: 08/14/15 21:25:00, PRN Line Flush BD Normal 2014-08 No Notes: Memori a Saline 09-15 (Same as: l Flush 03:26: BD [place] Posiflush) Nitroglycer 2014-08 No Notes: Eleazar hilton in 09-15 (Same l 03:23: as:Nitroqu [place] 00 ick, Nitrostat) "Do Not Crush" Sublingual tablet Ibuprofen 2014-08 No Notes: Memori a 09-15 (Same as: l 03:20: Motrin) [place] 00 "Do Not Crush" Give with food. Baclofen 2014-08 No Notes: Memoria 09-15 (Same As: l 03:20: Lioresal) [place] 00 200 ACTUAT 2014-08 No Notes: Memor ia Albuterol 09-15 Albuterol l 0.09 03:20: 90 [place]iej MG/ACTUAT 00 microgram/ Metered inh 8gm Dose HFA Same Inhaler as: Ventolin, Proventil Sodium 2014-08 No 1,000 mL, Memori a Chloride 09-15 Rate: 125 l 0.0769 02:39: ml/hr, [place] MEQ/ML 00 Infuse Injectable over: 8 Solution hr, Route: IV, Dosing Weight 50 kg, Total Volume: 1,000, Start date: 07/15/15 20:39:00, Duration: 30 day, Stop date: 08/14/15 20:38:00 Saline 2014-08 No Notes: Memoria Flush 0.9% 09-15 (Same as: l 02:39: BD [place] Posiflush) Aspirin 2014-08 No 324 mg, Memoria 09-14 Route: PO, l 20:15: ONCE, [place] 00 Dosing Weight 50, kg, Priority: STAT, Start date: 07/15/15 14:15:00, Stop date: 07/15/15 14:15:00 Saline 2014-08 No Notes: Memoria Flush 0.9% 1-17 (Same as: l 20:15: BD Posiflush) Sodium No 500 mL, Memoria Chloride 05-18 500 ml/hr, l 0.154 21:02: Infuse Maciej [...] / 04-11 Same as l Hydrocodone 17:21: [place] Caroline nn Bitartrate 00 325-7.5mg 7.5 MG Oral Do not Tablet exceed [[place] 4gm/day of 7.5/325] acetaminop hen. ibuprofen Yes [...] Memori a 03-23 (Same l 17:35: as:Chronul [place] 00 ac) atorvastati No Notes: Eleazar hilton n 03-23 (Same As: l 02:00: Lipitor) Motrin No Notes: Memoria - (Same as: l 23:10: Motrin) [place] 00 "Do Not Crush" Take with food. Omeprazole No 20 mg, Memor ia 03-22 Route: PO, l 22:00: Drug form: [place] 00 ECTAB, BID, Dosing Weight 53, kg, [...] hilton 7-25 (Same As: l 16:00: Plavix) [place] metoprolol Yes 12.5 mg = Me moria [...] INHALATION l 0.09 02:19: , Q4H, PRN [place] MG/ACTUAT 00 for Metered wheezing, Dose # 9 gm, 0 Inhaler Refill(s) Ondansetron No Notes: Eleazar hilton 7-25 (Same as: l 02:12: Zofran) [place]iej MEDICATION WASTE Product Size: 4 mg Product Wasted: ___ mg Docusate No Notes: Memoria 7-25 (Same as: l 02:12: Colace) [place] (Do Not Crush) Acetaminoph No Notes: Do M emoria en 7-25 not exceed l 02:12: 4 gm/day. Maciej (Same as: Tylenol) Budesonide No Notes: Memor ia 0.25 MG/ML 7-25 (Same As: l Inhalant 01:00: Pulmicort) Her farooq Solution 00 [Pulmicort] Albuterol No Notes: Memori a 0.833 MG/ML 03-22 (Same as: l / 01:00: Duoneb) [place] Ipratropium 00 [place] 0.167 MG/ML Inhalant Solution [DuoNeb] Potassium No Notes: Memori a Chloride 24 (Same as: l 1.33 MEQ/ML 23:15: Potassium H ermann Oral 00 Chloride) Solution Sodium No 1,000 mL, Memori a Chloride 24 1,000 l 0.154 22:23: ml/hr, [place] MEQ/ML 00 Infuse Injectable Over: 1 Solution hr, Route: IV, ONCE, Priority: STAT, Dosing Weight 50 kg, Start date: 03/21/15 17:23:00, Duration: 1 doses or times, Stop date: 03/21/15 17:23:00 Sodium No 1,000 mL, Memori a Chloride 24 1,000 l 0.154 21:12: ml/hr, [place] MEQ/ML 00 Infuse Injectable Over: 1 Solution hr, Route: IV, 1,000, Drug form: INJ, ONCE, Priority: STAT, Dosing Weight 50 kg, Start date: 03/21/15 16:12:00, Duration: 1 doses or times, Stop date: 03/21/15 16:12:00 Ondansetron No Notes: Eleazar hilton -24 (Same as: l 20:43: Zofran) [place] MEDICATION WASTE Product Size: 4 mg Product Wasted: ___ mg Morphine No Notes: Memoria -24 (Same l 20:43: as:MORPhin [place] 00 e Sulfate) Aspirin No Notes: Memoria 7-24 Take with l 20:43: food. [place] 00 Saline No Notes: Memoria Flush 0.9% 03-21 (Same as: l 20:43: BD [place] Posiflush) tramadol No 50 mg = 1 Eleazar hilton hydrochlori 7-14 tab, PO, l de 50 MG 22:02: Q4H, PRN Caroline nn Oral Tablet 00 pain, # 20 [Ultram] tab, 0 Refill(s) Aspirin No Notes: Memoria - Take with l 20:32: food. [place] 00 Morphine No Notes: Memoria 03-11 (Same [...] 03-05 Instructio l 09:13: ns: Use as [place] 00 directed 200 ACTUAT Yes 1 puff, Eleazar hilton Albuterol 08 INHALATION l 0.09 09:12: , Q4H, PRN Maciej MG/ACTUAT 00 for [...] hilton 08 Route: PO, l 07:16: Dosing [place] 00 Weight 50, kg, ONCE, STAT, Start [...] TOP, l 0.875 MG/HR 13:32: Daily, X [facility] Transdermal 56 14 day, # Patch 14 patch, [Nicoderm 0 C-Q] Refill(s) atorvastati Yes 40 mg = 2 M emoria n 20 mg 6-30 tab, PO, l oral tablet 13:32: Bedtime, # [place] 46 60 tab, 0 Refill(s) omeprazole Yes [...] PO, l oral tablet 13:32: [facility], # 30 tab, [...] 02-24 not exceed l 22:20: 4 gm/day. [place] 00 (Same as: Tylenol) Aspirin No Notes: [...] 6-22 ml/hr, l 0.9% IV 21:45: ONCE, [place] Start date: 02/17/15 16:45:00, 500 ml metoprolol Yes 12.5 mg = Me moria tartrate 25 6-22 0.5 tab, l mg oral 20:24: PO, BID, 0 Herm sho tablet 00 Refill(s) naproxen No 500 mg = 1 Mem oria 500 mg oral 6-22 tab, PO, l tablet 20:24: BID, PRN [place] 00 Pain, # 30 tab, 0 Refill(s) [...] PO, l oral tablet 20:24: Bedtime, # [place] 00 30 tab, 0 Refill(s) omeprazole Yes [...] Memoria 6-22 (Same as: l 14:00: Habitrol) [place] 00 "Remove old patch before applicatio n of new patch" Aspirin 81 No Notes: Do Me moria MG Enteric -22 not crush l Coated 14:00: or chew. [place] Tablet 00 (Same As: Ecotrin) Sodium No [...] tab, PO, l Tablet 02:37: Daily, # [place] [Plavix] 00 30 tab, 0 Refill(s) Enoxaparin No Notes: Memor ia 02-17 Nurse to l 02:30: ensure [place] 00 documentat ion of patient education per anticoagul ation policy. (Same as: Lovenox) Tessalon No Notes: Memoria Perles 02-17 (Same As: l 02:08: Tessalon Perles) "Do Not Crush" Acetaminoph No Notes: Do M emoria en 02-17 not exceed l 02:08: 4 gm/day. [place] 00 (Same as: Tylenol) Diphenhydra No Notes: Eleazar hilton mine 02-17 (Same as: l 02:08: Benadryl) Dextrometho No Notes: Eleazar hilton rphan 02-17 (dextromet l Hydrobromid 02:08: horphan-gu [place] e 2 MG/ML / 00 aifenesin Guaifenesin [...] hilton in 02-17 (Same l 02:06: as:Nitroqu [place] 00 ick, Nitrostat) "Do Not Crush" Sublingual tablet Acetaminoph No Notes: Do M emoria en 02-17 not exceed l 02:06: 4 gm/day. [place] 00 (Same as: Tylenol) Acetaminoph No Notes: Eleazar hilton en 325 MG / 02-17 (Same as: l Hydrocodone 02:06: [place] Caroline nn Bitartrate 00 325/5) Do 5 MG Oral not exceed Tablet 4gm/day of acetaminop hen. Morphine No Notes: Memoria 02-17 (Same l 02:06: as:MORPhin [place] 00 e Sulfate) Sodium No 1,000 mL, Memori a Chloride 02-17 Rate: 125 l 0.154 02:06: ml/hr, [place] MEQ/ML 00 Infuse Injectable over: 8 Solution [...] (Same as: l Flush 00:52: BD [place] 00 Posiflush) Morphine No Notes: Memoria 02-17 (Same l 00:28: as:MORPhin [place] 00 e Sulfate) Nitroglycer No Notes: Eleazar hilton in 02-17 (Same l 00:28: as:Nitroqu [place] 00 ick, Nitrostat) "Do Not Crush" Sublingual tablet Aspirin No Notes: (Do Eleazar hilton 02-16 Not Crush) l 22:49: Do not [place] crush or chew. Ondansetron No Notes: Eleazar hilton 12-22 (Same as: l 21:22: Zofran) Morphine No Notes: Memoria 12-22 (Same l 21:22: as:MORPhin [place] e Sulfate) Aspirin / No Notes: Memori a Calcium 12-22 Take with l Carbonate 21:22: food. Aspirin 81 Yes 81 mg = 1 Me moria MG Enteric 4-21 tab, PO, l Coated 20:08: Daily, # [place] Tablet 00 90 tab, 0 Refill(s) metoprolol [...] 4-21 mg, Route: l 03:42: IVP, ONCE, [place] 00 Dosing Weight 49.545, kg, Priority: Routine, Start date: 12/16/13 22:42:00, Stop date: 12/16/13 22:42:00 atorvastati No Notes: Eleazar hilton n 12-17 (Same As: l 03:28: Lipitor) [place] 00 Saline No Notes: [facility] Flush 0.9% 12-17 (Same as: l 03:25: BD [place] 00 Posiflush) Nitroglycer No Notes: Eleazar hilton in 12-17 (Same l 03:25: as:Nitroqu [place] 00 ick, Nitrostat) "Do Not Crush" Sublingual tablet atorvastati No 20 mg = 1 M emoria n 20 mg 21 tab, PO, l oral tablet 01:48: Bedtime, # [place] 00 30 tab, 0 Refill(s) clopidogrel No 75 mg = 1 M emoria 75 mg oral 4-21 tab, PO, l tablet 01:48: Daily, 0 [place] 00 Refill(s) Metoprolol No 12.5 mg = [...] 4-20 Instructio l 21:17: ns: Dose = [place] 00 2.2ml/kg, Max dose = 100ml -- [...] Chloride 4-20 1,000 l 0.154 19:36: ml/hr, [place] MEQ/ML 00 Infuse Injectable Over: 1 Solution [...] PO, l oral tablet 20:52: Bedtime, # [place] 00 30 tab, 0 Refill(s) Aspirin 81 Yes 81 mg = 1 Me moria MG Chewable 3-13 tab, PO, l Tablet 20:52: Daily, # [place] 00 60 tab, 0 Refill(s) Plavix No 75 mg, 1 [facility] 3-13 tab, l 14:00: Route: PO, [place] 00 Drug form: TAB, Daily, Dosing Weight [...] ia 3-13 tab, l 13:15: Route: PO, [place] 00 Drug form: TAB, Q4H, Dosing Weight 63.636, kg, PRN Pain, Start date: 11/08/13 8:15:00, Duration: 30 day, Stop date: 12/08/13 8:14:00Do not exceed 4 gm/day. (Same as: Tylenol) Saline No 5 ml, [facility] Flush 0.9% 11-08 Route: l 12:06: MISC, Drug [place] 00 Form: INJ, Dosing Weight 63.636, kg, [...] Diastolic (mm Hg) 2017-01-19 23:16:00 [facility] [place] Respitory Rate 2017-01-19 23:16:00 [facility] [place] Systolic (mm Hg) 2017-01-19 22:28:00 Eleazar rial [place] Diastolic (mm Hg) 2017-01-19 22:28:00 [facility] [place] Respitory Rate 2017-01-19 22:28:00 [facility] [place] Respitory Rate 2017-01-19 21:00:00 [facility] [place] Systolic (mm Hg) 2017-01-19 20:00:00 Eleazar rial [place] Diastolic (mm Hg) 2017-01-19 20:00:00 [facility] [place] Weight 2017-01-19 17:23:00 [facility] BMI Calculated 2017-01-19 17:23:00 [facility] [place] Height 2017-01-19 17:23:00 152.4 cm [facility] [place] Temperature Oral (F) 2017-01-19 17:23:00 97.0 F [facility] Heart Rate 2017-01-19 17:23:00 [facility] [place] Systolic (mm Hg) 2017-01-17 02:10:00 Eleazar rial [place] Diastolic (mm Hg) 2017-01-17 02:10:00 [facility] [place] Respitory Rate 2017-01-17 02:10:00 [facility] [place] Systolic (mm Hg) 2017-01-17 01:21:00 Eleazar rial [place] Diastolic (mm Hg) 2017-01-17 01:21:00 [facility] [place] Respitory Rate 2017-01-17 01:21:00 [facility] [place] Temperature Oral (F) 2017-01-17 01:21:00 98.1 F [facility] [place] Systolic (mm Hg) 2017-01-17 00:28:00 Eleazar rial [place] Diastolic (mm Hg) 2017-01-17 00:28:00 [facility] [place] Respitory Rate 2017-01-17 00:28:00 [facility] [place] Heart Rate 2017-01-16 23:24:00 [facility] [place] Temperature Oral (F) 2017-01-16 23:24:00 98 F [facility] [place] Weight 2017-01-16 23:24:00 [facility] [place] Heart Rate 2016-11-29 03:44:00 [facility] [place] Systolic (mm Hg) 2016-11-29 03:44:00 Eleazar rial [place] Diastolic (mm Hg) 2016-11-29 03:44:00 [facility] [place] Respitory Rate 2016-11-29 03:44:00 [facility] [place] Temperature Oral (F) 2016-11-29 03:44:00 98.7 F [facility] Heart Rate 2016-11-29 03:24:00 [facility] [place] Respitory Rate 2016-11-29 03:24:00 [facility] [place] Systolic (mm Hg) 2016-11-29 03:24:00 Eleazar rial [place] Diastolic (mm Hg) 2016-11-29 03:24:00 [facility] [place] Heart Rate 2016-11-29 02:51:00 [facility] [place] Respitory Rate 2016-11-29 02:51:00 [facility] [place] Systolic (mm Hg) 2016-11-29 02:51:00 Eleazar rial [place] Diastolic (mm Hg) 2016-11-29 02:51:00 [facility] [place] Weight 2016-11-29 00:21:00 [facility] BMI Calculated 2016-11-29 00:21:00 [facility] [place] Height 2016-11-29 00:21:00 152.4 cm [facility] [place] Temperature Oral (F) 2016-11-29 00:21:00 98.6 F [facility] [place] Respitory Rate 2016-11-07 02:47:00 [facility] [place] Heart Rate 2016-11-07 02:47:00 [facility] [place] Temperature Oral (F) 2016-11-07 02:47:00 98.2 F [facility] [place] Systolic (mm Hg) 2016-11-07 02:47:00 Eleazar rial [place] Diastolic (mm Hg) 2016-11-07 02:47:00 [facility] [place] Heart Rate 2016-11-07 02:22:00 [facility] [place] Respitory Rate 2016-11-07 02:22:00 [facility] [place] Systolic (mm Hg) 2016-11-07 02:22:00 Eleazar rial [place] Diastolic (mm Hg) 2016-11-07 02:22:00 [facility] [place] Weight 2016-11-06 23:37:00 [facility] [place] Heart Rate 2016-11-06 23:37:00 [facility] [place] Temperature Oral (F) 2016-11-06 23:37:00 98.3 F [facility] [place] Respitory Rate 2016-11-06 23:37:00 [facility] [place] Systolic (mm Hg) 2016-11-06 23:37:00 Eleazar rial [place] Diastolic (mm Hg) 2016-11-06 23:37:00 [facility] [place] Respitory Rate 2016-10-11 18:24:00 [facility] [place] Temperature Oral (F) 2016-10-11 18:24:00 97.9 F [facility] [place] Systolic (mm Hg) 2016-10-11 18:24:00 Eleazar rial [place] Diastolic (mm Hg) 2016-10-11 18:24:00 [facility] [place] Heart Rate 2016-10-11 18:24:00 [facility] Heart Rate 2016-10-11 13:53:00 [facility] [place] Systolic (mm Hg) 2016-10-11 13:53:00 Eleazar rial [place] Diastolic (mm Hg) 2016-10-11 13:53:00 [facility] [place] Temperature Oral (F) 2016-10-11 13:53:00 98.1 F [facility] [place] Temperature Oral (F) 2016-10-11 10:16:00 99.0 F [facility] [place] Respitory Rate 2016-10-11 10:16:00 [facility] [place] Heart Rate 2016-10-11 10:16:00 [facility] [place] Systolic (mm Hg) 2016-10-11 10:16:00 Eleazar rial [place] Diastolic (mm Hg) 2016-10-11 10:16:00 [facility] [place] Weight 2016-10-11 06:46:00 [facility] [place] BMI Calculated 2016-10-11 06:46:00 [facility] [place] Height 2016-10-11 06:46:00 152.4 cm [facility] [place] Respitory Rate 2016-10-11 06:39:00 [facility] [place] Height 2016-10-10 17:48:00 152.4 cm [facility] BMI Calculated 2016-10-10 17:48:00 [facility] [place] Weight 2016-10-10 17:48:00 [facility] BMI Calculated 2016-09-15 04:26:00 [facility] [place] Weight 2016-09-15 04:26:00 [facility] [place] Height 2016-09-15 04:26:00 152.4 cm [facility] [place] Systolic (mm Hg) 2016-09-15 04:26:00 Eleazar rial [place] Diastolic (mm Hg) 2016-09-15 04:26:00 [facility] [place] Respitory Rate 2016-09-15 04:26:00 [facility] [place] Heart Rate 2016-09-15 04:26:00 [facility] [place] Temperature Oral (F) 2016-09-15 04:26:00 98.5 F [facility] [place] Respitory Rate 2016-04-14 06:22:00 [facility] [place] Temperature Oral (F) 2016-04-14 06:22:00 98.7 F [facility] [place] Systolic (mm Hg) 2016-04-14 06:22:00 Eleazar rial [place] Diastolic (mm Hg) 2016-04-14 06:22:00 [facility] [place] Heart Rate 2016-04-14 06:22:00 [facility] [place] BMI Calculated 2016-04-14 02:12:00 [facility] [place] Weight 2016-04-14 02:12:00 [facility] [place] Temperature Oral (F) 2016-04-14 02:12:00 99.2 F [facility] [place] Height 2016-04-14 02:12:00 152.4 cm [facility] [place] Respitory Rate 2016-04-14 02:12:00 [facility] [place] Systolic (mm Hg) 2016-04-14 02:12:00 Eleazar rial [place] Diastolic (mm Hg) 2016-04-14 02:12:00 [facility] [place] Heart Rate 2016-04-14 02:12:00 [facility] [place] Temperature Oral (F) 2016-03-12 17:00:00 97.8 F [facility] Heart Rate 2016-03-12 17:00:00 [facility] [place] Respitory Rate 2016-03-12 17:00:00 [facility] [place] Systolic (mm Hg) 2016-03-12 17:00:00 Eleazar rial [place] Diastolic (mm Hg) 2016-03-12 17:00:00 [facility] [place] Respitory Rate 2016-03-12 12:54:00 [facility] [place] Systolic (mm Hg) 2016-03-12 12:30:00 Eleazar rial [place] Diastolic (mm Hg) 2016-03-12 12:30:00 [facility] [place] Respitory Rate 2016-03-12 12:30:00 [facility] [place] Heart Rate 2016-03-12 12:30:00 [facility] [place] Temperature Oral (F) 2016-03-12 12:30:00 98.2 F [facility] [place] Temperature Oral (F) 2016-03-12 10:26:00 98.0 F [facility] [place] Heart Rate 2016-03-12 10:26:00 [facility] [place] Systolic (mm Hg) 2016-03-12 10:26:00 Eleazar rial [place] Diastolic (mm Hg) 2016-03-12 10:26:00 [facility] [place] Height 2016-03-11 19:45:00 152.4 cm [facility] BMI Calculated 2016-03-11 19:45:00 [facility] [place] Weight 2016-03-11 19:45:00 [facility] [place] Respitory Rate 2016-03-06 01:44:00 [facility] [place] Systolic (mm Hg) 2016-03-06 01:44:00 Eleazar rial [place] Diastolic (mm Hg) 2016-03-06 01:44:00 [facility] [place] Heart Rate 2016-03-06 01:44:00 [facility] [place] Temperature Oral (F) 2016-03-06 01:44:00 98.1 F [facility] [place] BMI Calculated 2016-03-05 21:55:00 [facility] [place] Weight 2016-03-05 21:55:00 [facility] [place] Systolic (mm Hg) 2016-03-05 21:55:00 Eleazar rial [place] Diastolic (mm Hg) 2016-03-05 21:55:00 [facility] [place] Heart Rate 2016-03-05 21:55:00 [facility] [place] Height 2016-03-05 21:55:00 152.4 cm [facility] [place] Temperature Oral (F) 2016-03-05 21:55:00 98.3 F [facility] [place] Respitory Rate 2016-03-05 21:55:00 [facility] [place] Respitory Rate 2016-03-01 01:23:00 [facility] [place] Systolic (mm Hg) 2016-03-01 01:23:00 Eleazar rial [place] Diastolic (mm Hg) 2016-03-01 01:23:00 [facility] [place] Temperature Oral (F) 2016-03-01 01:23:00 98.2 F [facility] Heart Rate 2016-03-01 01:23:00 [facility] [place] Respitory Rate 2016-02-29 23:25:00 [facility] [place] Temperature Oral (F) 2016-02-29 22:27:00 98.3 F [facility] [place] Heart Rate 2016-02-29 22:27:00 [facility] [place] Respitory Rate 2016-02-29 22:27:00 [facility] [place] Systolic (mm Hg) 2016-02-29 22:27:00 Eleazar rial [place] Diastolic (mm Hg) 2016-02-29 22:27:00 [facility] [place] Respitory Rate 2015-09-05 14:47:00 [facility] [place] Systolic (mm Hg) 2015-09-05 14:47:00 Eleazar rial [place] Diastolic (mm Hg) 2015-09-05 14:47:00 [facility] [place] Heart Rate 2015-09-05 14:47:00 [facility] [place] Weight 2015-09-05 11:00:00 [facility] [place] Systolic (mm Hg) 2015-09-05 10:00:00 Eleazar rial [place] Diastolic (mm Hg) 2015-09-05 10:00:00 [facility] [place] Respitory Rate 2015-09-05 10:00:00 [facility] [place] Heart Rate 2015-09-05 10:00:00 [facility] [place] Respitory Rate 2015-09-05 06:00:00 [facility] [place] Systolic (mm Hg) 2015-09-05 06:00:00 Eleazar rial [place] Diastolic (mm Hg) 2015-09-05 06:00:00 [facility] [place] Heart Rate 2015-09-05 06:00:00 [facility] [place] Weight 2015-09-04 11:00:00 [facility] [place] Weight 2015-09-04 09:15:00 [facility] [place] BMI Calculated 2015-09-04 09:15:00 [facility] [place] Height 2015-09-04 09:15:00 160.02 cm [facility] [place] Temperature Oral (F) 2015-09-04 09:06:00 98.3 F [facility] [place] Height 2015-09-04 03:35:00 152.4 cm [facility] [place] BMI Calculated 2015-09-04 03:35:00 [facility] [place] Temperature Oral (F) 2015-09-04 03:35:00 98.7 F [facility] [place] Systolic (mm Hg) 2015-07-16 13:56:00 Eleazar rial [place] Diastolic (mm Hg) 2015-07-16 13:56:00 [facility] [place] Respitory Rate 2015-07-16 13:56:00 [facility] [place] Heart Rate 2015-07-16 13:56:00 [facility] [place] Temperature Oral (F) 2015-07-16 13:56:00 98.0 F [facility] [place] Systolic (mm Hg) 2015-07-16 13:55:00 Eleazar rial [place] Diastolic (mm Hg) 2015-07-16 13:55:00 [facility] [place] Respitory Rate 2015-07-16 13:55:00 [facility] [place] Heart Rate 2015-07-16 13:55:00 [facility] [place] Temperature Oral (F) 2015-07-16 13:55:00 97.4 F [facility] [place] Systolic (mm Hg) 2015-07-16 10:00:00 Eleazar rial [place] Diastolic (mm Hg) 2015-07-16 10:00:00 [facility] [place] Respitory Rate 2015-07-16 10:00:00 [facility] [place] Heart Rate 2015-07-16 10:00:00 [facility] [place] Temperature Oral (F) 2015-07-16 10:00:00 97.9 F [facility] [place] Height 2015-07-16 01:30:00 152.4 cm [facility] [place] Weight 2015-07-16 01:30:00 [facility] [place] BMI Calculated 2015-07-16 01:30:00 [facility] [place] Height 2015-07-15 18:10:00 152.4 cm [facility] [place] BMI Calculated 2015-07-15 18:10:00 [facility] [place] Weight 2015-07-15 18:10:00 [facility] [place] Weight 2015-07-05 04:10:00 [facility] [place] Height 2015-07-05 04:10:00 152.4 cm [facility] [place] BMI Calculated 2015-07-05 04:10:00 [facility] [place] Temperature Oral (F) 2015-07-05 04:10:00 98.3 F [facility] [place] Respitory Rate 2015-07-05 04:10:00 [facility] [place] Heart Rate 2015-07-05 04:10:00 [facility] [place] Systolic (mm Hg) 2015-07-05 04:10:00 Eleazar rial [place] Diastolic (mm Hg) 2015-07-05 04:10:00 [facility] [place] BMI Calculated 2015-07-04 18:05:00 [facility] [place] Weight 2015-07-04 18:05:00 [facility] [place] Height 2015-07-04 18:05:00 152.4 cm [facility] [place] Temperature Oral (F) 2015-07-04 18:05:00 97.9 F [facility] [place] Respitory Rate 2015-07-04 18:05:00 [facility] [place] Heart Rate 2015-07-04 18:05:00 [facility] [place] Systolic (mm Hg) 2015-07-04 18:05:00 Eleazar rial [place] Diastolic (mm Hg) 2015-07-04 18:05:00 [facility] [place] BMI Calculated 2015-06-04 04:13:00 [facility] [place] Weight 2015-06-04 04:13:00 [facility] [place] Height 2015-06-04 04:13:00 152.4 cm [facility] [place] Temperature Oral (F) 2015-06-04 04:13:00 98.8 F [facility] [place] Respitory Rate 2015-06-04 04:13:00 [facility] [place] Heart Rate 2015-06-04 04:13:00 [facility] [place] Systolic (mm Hg) 2015-06-04 04:13:00 Eleazar rial [place] Diastolic (mm Hg) 2015-06-04 04:13:00 [facility] [place] Systolic (mm Hg) 2015-05-18 22:47:00 Eleazar rial [place] Diastolic (mm Hg) 2015-05-18 22:47:00 [facility] [place] Temperature Oral (F) 2015-05-18 22:47:00 96.6 F [facility] [place] Heart Rate 2015-05-18 22:47:00 [facility] [place] Respitory Rate 2015-05-18 22:47:00 [facility] [place] Systolic (mm Hg) 2015-05-18 22:30:00 Eleazar rial [place] Diastolic (mm Hg) 2015-05-18 22:30:00 [facility] [place] Systolic (mm Hg) 2015-05-18 21:00:00 Eleazar rial [place] Diastolic (mm Hg) 2015-05-18 21:00:00 [facility] [place] Temperature Oral (F) 2015-05-18 21:00:00 98.1 F [facility] [place] Respitory Rate 2015-05-18 21:00:00 [facility] [place] Temperature Oral (F) 2015-05-18 19:21:00 98.2 F [facility] [place] Heart Rate 2015-05-18 19:21:00 [facility] [place] Respitory Rate 2015-05-18 19:21:00 [facility] [place] Heart Rate 2015-05-18 17:10:00 [facility] [place] Respitory Rate 2015-05-09 20:00:00 [facility] [place] Systolic (mm Hg) 2015-05-09 20:00:00 Eleazar rial [place] Diastolic (mm Hg) 2015-05-09 20:00:00 [facility] [place] Temperature Oral (F) 2015-05-09 20:00:00 97.5 F [facility] [place] Temperature Oral (F) 2015-05-09 19:10:00 97.5 F [facility] [place] Systolic (mm Hg) 2015-05-09 19:10:00 Eleazar rial [place] Diastolic (mm Hg) 2015-05-09 19:10:00 [facility] [place] Respitory Rate 2015-05-09 19:10:00 [facility] [place] Systolic (mm Hg) 2015-05-09 18:41:00 Eleazar rial [place] Diastolic (mm Hg) 2015-05-09 18:41:00 [facility] [place] Weight 2015-05-09 17:37:00 [facility] [place] BMI Calculated 2015-05-09 17:37:00 [facility] [place] Height 2015-05-09 17:37:00 152.4 cm [facility] [place] Temperature Oral (F) 2015-05-09 17:37:00 98.9 F [facility] [place] Respitory Rate 2015-05-09 17:37:00 [facility] [place] Heart Rate 2015-05-09 17:37:00 [facility] [place] Systolic (mm Hg) 2015-05-03 00:04:00 Eleazar rial [place] Diastolic (mm Hg) 2015-05-03 00:04:00 [facility] [place] Heart Rate 2015-05-03 00:04:00 [facility] [place] Respitory Rate 2015-05-03 00:04:00 [facility] [place] Temperature Oral (F) 2015-05-03 00:04:00 98.5 F [facility] [place] Heart Rate 2015-05-02 21:17:00 [facility] [place] Respitory Rate 2015-05-02 21:17:00 [facility] [place] Systolic (mm Hg) 2015-05-02 21:17:00 Eleazar rial [place] Diastolic (mm Hg) 2015-05-02 21:17:00 [facility] [place] Heart Rate 2015-05-02 20:24:00 [facility] [place] Temperature Oral (F) 2015-05-02 20:24:00 98.1 F [facility] [place] Systolic (mm Hg) 2015-05-02 20:24:00 Eleazar rial [place] Diastolic (mm Hg) 2015-05-02 20:24:00 [facility] [place] Respitory Rate 2015-05-02 20:24:00 [facility] [place] Temperature Oral (F) 2015-05-02 18:35:00 98.9 F [facility] [place] Systolic (mm Hg) 2015-04-11 19:45:00 Eleazar rial [place] Diastolic (mm Hg) 2015-04-11 19:45:00 [facility] [place] Temperature Oral (F) 2015-04-11 19:45:00 98.7 F [facility] [place] Respitory Rate 2015-04-11 19:45:00 [facility] [place] Heart Rate 2015-04-11 19:45:00 [facility] [place] Weight 2015-04-11 16:35:00 [facility] [place] Temperature Oral (F) 2015-04-11 16:35:00 98.4 F [facility] [place] Systolic (mm Hg) 2015-04-11 16:35:00 Eleazar rial [place] Diastolic (mm Hg) 2015-04-11 16:35:00 [facility] [place] Respitory Rate 2015-04-11 16:35:00 [facility] [place] Heart Rate 2015-04-11 16:35:00 [facility] [place] Systolic (mm Hg) 2015-03-30 22:06:00 Eleazar rial [place] Diastolic (mm Hg) 2015-03-30 22:06:00 [facility] [place] Temperature Oral (F) 2015-03-30 22:06:00 97.9 F [facility] [place] Heart Rate 2015-03-30 22:06:00 [facility] [place] Respitory Rate 2015-03-30 22:06:00 [facility] [place] BMI Calculated 2015-03-30 19:44:00 [facility] [place] Height 2015-03-30 19:44:00 152.4 cm [facility] [place] Systolic (mm Hg) 2015-03-30 19:44:00 Eleazar rial [place] Diastolic (mm Hg) 2015-03-30 19:44:00 [facility] [place] Respitory Rate 2015-03-30 19:44:00 [facility] [place] Heart Rate 2015-03-30 19:44:00 [facility] [place] Weight 2015-03-30 19:44:00 [facility] [place] Temperature Oral (F) 2015-03-30 19:44:00 97.9 F [facility] Respitory Rate 2015-03-24 21:57:00 [facility] [place] Temperature Oral (F) 2015-03-24 21:57:00 97.9 F [facility] Heart Rate 2015-03-24 21:57:00 [facility] [place] Systolic (mm Hg) 2015-03-24 21:57:00 Eleazar rial [place] Diastolic (mm Hg) 2015-03-24 21:57:00 [facility] [place] Heart Rate 2015-03-24 17:28:00 [facility] [place] Temperature Oral (F) 2015-03-24 17:28:00 98.8 F [facility] [place] Respitory Rate 2015-03-24 17:28:00 [facility] [place] Systolic (mm Hg) 2015-03-24 17:28:00 Eleazar [facility] [place] Diastolic (mm Hg) 2015-03-24 17:28:00 [facility] [place] Heart Rate 2015-03-24 13:08:00 [facility] [place] Temperature Oral (F) 2015-03-24 13:08:00 98.4 F [facility] Respitory Rate 2015-03-24 13:08:00 [facility] [place] Systolic (mm Hg) 2015-03-24 13:08:00 Eleazar [facility] [place] Diastolic (mm Hg) 2015-03-24 13:08:00 [facility] [place] BMI Calculated 2015-03-22 01:41:00 [facility] [place] Weight 2015-03-22 01:41:00 [facility] Height 2015-03-22 01:41:00 152.4 cm [facility] [place] BMI Calculated 2015-03-21 18:42:00 [facility] [place] Weight 2015-03-21 18:42:00 [facility] [place] Height 2015-03-21 18:42:00 152.4 cm [facility] Systolic (mm Hg) 2015-03-11 22:39:00 Eleazar rial [place] Diastolic (mm Hg) 2015-03-11 22:39:00 [facility] [place] Respitory Rate 2015-03-11 22:39:00 [facility] [place] Heart Rate 2015-03-11 22:39:00 [facility] [place] Temperature Oral (F) 2015-03-11 22:39:00 98.1 F [facility] BMI Calculated 2015-03-11 19:44:00 [facility] [place] Weight 2015-03-11 19:44:00 [facility] [place] Systolic (mm Hg) 2015-03-11 19:44:00 Eleazar rial [place] Diastolic (mm Hg) 2015-03-11 19:44:00 [facility] [place] Temperature Oral (F) 2015-03-11 19:44:00 97.9 F [facility] [place] Heart Rate 2015-03-11 19:44:00 [facility] Respitory Rate 2015-03-11 19:44:00 [facility] [place] Height 2015-03-11 19:44:00 152.4 cm [facility] [place] Temperature Oral (F) 2015-03-05 10:15:00 97.9 F [facility] [place] Systolic (mm Hg) 2015-03-05 10:15:00 Eleazar rial [place] Diastolic (mm Hg) 2015-03-05 10:15:00 [facility] [place] Respitory Rate 2015-03-05 10:15:00 [facility] [place] Respitory Rate 2015-03-05 09:53:00 [facility] [place] Temperature Oral (F) 2015-03-05 09:53:00 97.8 F [facility] [place] Systolic (mm Hg) 2015-03-05 09:53:00 Eleazar rial [place] Diastolic (mm Hg) 2015-03-05 09:53:00 [facility] [place] Respitory Rate 2015-03-05 06:30:00 [facility] [place] Systolic (mm Hg) 2015-03-05 06:30:00 [facility] [place] Diastolic (mm Hg) 2015-03-05 06:30:00 [facility] [place] Temperature Oral (F) 2015-03-05 06:20:00 97.7 F [facility] [place] Heart Rate 2015-03-05 06:20:00 [facility] [place] Heart Rate 2015-03-05 05:46:00 [facility] [place] Height 2015-03-05 05:46:00 152.4 cm [facility] [place] BMI Calculated 2015-03-05 05:46:00 [facility] Weight 2015-03-05 05:46:00 [facility] Systolic (mm Hg) 2015-02-25 20:55:00 Ele[facility] [place] Diastolic (mm Hg) 2015-02-25 20:55:00 [facility] [place] Temperature Oral (F) 2015-02-25 20:55:00 97.9 F [facility] Heart Rate 2015-02-25 20:55:00 [facility] Respitory Rate 2015-02-25 20:55:00 [facility] [place] Temperature Oral (F) 2015-02-25 17:18:00 98 F [facility] [place] Heart Rate 2015-02-25 17:18:00 [facility] [place] Respitory Rate 2015-02-25 17:18:00 [facility] [place] Systolic (mm Hg) 2015-02-25 17:18:00 Eleazar [facility] [place] Diastolic (mm Hg) 2015-02-25 17:18:00 [facility] [place] Systolic (mm Hg) 2015-02-25 12:00:00 [facility] [place] Diastolic (mm Hg) 2015-02-25 12:00:00 [facility] [place] Respitory Rate 2015-02-25 12:00:00 [facility] Heart Rate 2015-02-25 12:00:00 [facility] Temperature Oral (F) 2015-02-25 12:00:00 97.8 F [facility] Height 2015-02-24 16:11:00 152.4 cm [facility] BMI Calculated 2015-02-24 16:11:00 [facility] Weight 2015-02-24 16:11:00 [facility] Heart Rate 2015-02-18 20:17:00 [facility] Temperature Oral (F) 2015-02-18 20:17:00 97.3 F [facility] Systolic (mm Hg) 2015-02-18 20:17:00 Ele[facility] [place] Diastolic (mm Hg) 2015-02-18 20:17:00 [facility] Respitory Rate 2015-02-18 20:17:00 [facility] [place] Heart Rate 2015-02-18 16:13:00 [facility] [place] Respitory Rate 2015-02-18 16:13:00 [facility] [place] Systolic (mm Hg) 2015-02-18 16:13:00 Eleazar [facility] [place] Diastolic (mm Hg) 2015-02-18 16:13:00 [facility] [place] Temperature Oral (F) 2015-02-18 16:13:00 97.5 F [facility] [place] Temperature Oral (F) 2015-02-18 12:19:00 97.9 F [facility] [place] Systolic (mm Hg) 2015-02-18 12:19:00 Eleazar [facility] [place] Diastolic (mm Hg) 2015-02-18 12:19:00 [facility] [place] Respitory Rate 2015-02-18 12:19:00 [facility] [place] Heart Rate 2015-02-18 12:19:00 [facility] Weight 2015-02-17 02:30:00 [facility] Height 2015-02-17 02:30:00 152.4 cm [facility] [place] BMI Calculated 2015-02-17 02:30:00 [facility] Weight 2015-02-16 20:42:00 [facility] BMI Calculated 2015-02-16 20:42:00 [facility] [place] Height 2015-02-16 20:42:00 152.4 cm [facility] Respitory Rate 2013-12-25 19:27:00 [facility] Heart Rate 2013-12-25 19:27:00 [facility] Diastolic (mm Hg) 2013-12-25 19:27:00 [facility] [place] Systolic (mm Hg) 2013-12-25 19:27:00 [facility] [place] Temperature Oral (F) 2013-12-25 19:27:00 98.3 F [facility] BMI Calculated 2013-12-25 16:48:00 [facility] Weight 2013-12-25 16:48:00 [facility] Height 2013-12-25 16:48:00 152.4 cm [facility] Respitory Rate 2013-12-25 16:48:00 [facility] [place] Heart Rate 2013-12-25 16:48:00 [facility] Diastolic (mm Hg) 2013-12-25 16:48:00 [facility] [place] Systolic (mm Hg) 2013-12-25 16:48:00 [facility] [place] Temperature Oral (F) 2013-12-25 16:48:00 98.8 F [facility] Heart Rate 2013-12-23 00:27:00 [facility] [place] Systolic (mm Hg) 2013-12-23 00:27:00 [facility] [place] Respitory Rate 2013-12-23 00:27:00 [facility] [place] Temperature Oral (F) 2013-12-23 00:27:00 98.3 F [facility] [place] Diastolic (mm Hg) 2013-12-23 00:27:00 [facility] [place] Diastolic (mm Hg) 2013-12-22 23:06:00 [facility] Temperature Oral (F) 2013-12-22 23:06:00 98.4 F [facility] [place] Systolic (mm Hg) 2013-12-22 23:06:00 [facility] Respitory Rate 2013-12-22 23:06:00 [facility] Heart Rate 2013-12-22 23:06:00 [facility] [place] Weight 2013-12-22 20:46:00 [facility] [place] Temperature Oral (F) 2013-12-22 20:46:00 98.7 F [facility] [place] Systolic (mm Hg) 2013-12-22 20:46:00 [facility] Diastolic (mm Hg) 2013-12-22 20:46:00 [facility] [place] Respitory Rate 2013-12-22 20:46:00 [facility] [place] Heart Rate 2013-12-22 20:46:00 [facility] [place] Diastolic (mm Hg) 2013-12-17 20:30:00 [facility] [place] Respitory Rate 2013-12-17 20:30:00 [facility] [place] Systolic (mm Hg) 2013-12-17 20:30:00 [facility] [place] Systolic (mm Hg) 2013-12-17 19:06:00 [facility] [place] Diastolic (mm Hg) 2013-12-17 19:06:00 [facility] [place] Respitory Rate 2013-12-17 19:06:00 [facility] [place] Systolic (mm Hg) 2013-12-17 18:54:00 [facility] Diastolic (mm Hg) 2013-12-17 18:54:00 [facility] [place] Temperature Oral (F) 2013-12-17 17:09:00 98.1 F [facility] [place] Respitory Rate 2013-12-17 16:50:00 [facility] [place] Temperature Oral (F) 2013-12-17 09:00:00 97.1 F [facility] [place] Height 2013-12-17 02:58:00 152.4 cm [facility] Weight 2013-12-17 02:58:00 [facility] [place] BMI Calculated 2013-12-17 02:58:00 [facility] Temperature Oral (F) 2013-12-17 02:55:00 98.1 F [facility] Height 2013-12-16 17:19:00 152.4 cm [facility] BMI Calculated 2013-12-16 17:19:00 [facility] Weight 2013-12-16 17:19:00 [facility] Heart Rate 2013-12-16 17:19:00 [facility] Temperature Oral (F) 2013-11-08 21:00:00 98 F [facility] [place] Diastolic (mm Hg) 2013-11-08 21:00:00 [facility] [place] Respitory Rate 2013-11-08 21:00:00 [facility] Systolic (mm Hg) 2013-11-08 21:00:00 [facility] Temperature Oral (F) 2013-11-08 19:13:00 97.6 F [facility] Diastolic (mm Hg) 2013-11-08 19:13:00 [facility] [place] Systolic (mm Hg) 2013-11-08 19:13:00 Eleazar [facility] Respitory Rate 2013-11-08 19:13:00 [facility] [place] Systolic (mm Hg) 2013-11-08 16:18:00 [facility] [place] Respitory Rate 2013-11-08 16:18:00 [facility] Diastolic (mm Hg) 2013-11-08 16:18:00 [facility] [place] Temperature Oral (F) 2013-11-08 11:34:00 99.0 F [facility] Heart Rate 2013-11-08 11:34:00 [facility] Heart Rate 2013-11-08 08:04:00 [facility] BMI Calculated 2013-11-08 04:51:00 [facility] [place] Height 2013-11-08 04:51:00 152.4 cm [facility] Weight 2013-11-08 04:51:00 [facility] Heart Rate 2013-11-08 04:51:00 [facility] Procedures Procedure Date / Time Performing Clinician Source Performed Cardiac catheterization [facility] procedure Stent placement<sup>1</sup> [facility] [place] Plan of Care Planned Activity Planned Date Details Comments Source Future Scheduled Test 2021-05-[address] [facility] 00:00:00 May to October (>/= 19 yrs) [code = IMM Influenza Seasonal May to October (>/= 19 yrs)] Future Scheduled Test [address] 65 [facility] 00:00:00 and Up [code = IMM Pneumococcal Age 65 and Up] Future Scheduled Test [address] [facility] 00:00:00 neoplasm of colon (procedure) [code = 765163328] Future Scheduled Test [address] [facility] 00:00:00 (Yearly) [code = Breast Cancer Scrn (Yearly)] Future Scheduled Test 1966 COVID-19 Vaccine (1) [facility] 00:00:00 [code = COVID-19 Vaccine (1)] Encounters Start End Encounter Admission Attending Care Care Encounter Source Date/Time Date/Time Type Type Clinicians Facility Department ID 2020-10-15 2020-10-15 Emergency [facility] [id number] 02:02:00 04:45:00 Ciaran Freitas [id number] [place] [id number] [place] [id number] 2020-01-21 2020-01-21 Outpatient [id number] 05:31:00 05:31:00 2019-10-15 2019-10-15 Emergency E [id number] [facility] 13:12:00 13:12:00 2019-05-20 2019-05-20 Emergency E [id number] 15:19:00 15:19:00 2019-02-25 2019-02-25 Emergency E [id number] 10:56:00 10:56:00 2018-08-21 2018-08-21 Emergency [facility] [id number] [place] 18:32:58 18:32:58 Health 2018-08-21 2018-08-21 Emergency [facility] [id number] [place] 17:47:59 17:47:59 Health 2018-08-21 2018-08-21 Emergency [facility] [id number] [place] 16:16:06 16:16:[address] [facility] 2018-08-16 2018-08-16 Emergency [facility] [id number] [place] 22:04:00 22:04:[address] [facility] 2018-08-16 2018-08-16 Emergency [facility] [id number] [place] 21:21:42 21:21:[address] [facility] 2018-05-18 2018-05-18 Emergency [facility] [id number] [place] 14:51:52 14:51:[address] [facility] 2018-03-08 2018-03-08 Emergency [facility] [id number] [place] 15:12:17 15:12:[address] [facility] 2018-01-16 2018-01-16 Emergency [facility] [id number] [place] 17:53:03 17:53:[address] [facility] 2018-01-16 2018-01-16 Emergency [facility] [id number] [place] 00:00:00 00:00:[address] [facility] 2018-01-16 2018-01-16 Outpatient [facility] [id number] [place] 00:00:00 00:00:[address] [facility] 2017-11-11 2017-11-11 Emergency E [facility] [id number] [facility] 16:37:00 16:37:00 [facility] 2017-01-19 2017-01-19 Outpatient Patel, [facility] [id number] 12:18:00 18:37:00 Mac Bond 2017-01-16 2017-01-16 Outpatient Chayito, [facility] [id number] 18:22:00 21:34:00 Jl 33 [place] 2016-11-28 2016-11-28 Outpatient Ace, [facility] [id number] 19:17:00 23:13:00 Jason 32 Melody 2016-11-06 2016-11-06 Outpatient Elijah [facility] [id number] 17:34:00 21:03:00 Zaki 31 [place] 2016-10-10 2016-10-11 Outpatient Cinthya, [facility] [id number] 11:45:00 13:54:00 Jessika Jacek 30 2016-09-14 2016-09-15 Outpatient Emmanuel, [facility] [id number] 21:19:00 00:56:00 Nando Lozada 29 2016-04-13 2016-04-14 Outpatient Frandy [facility] [id number] 21:11:00 01:37:00 Jose Tripathi 2016-03-11 2016-03-12 Outpatient Mihai, [facility] [id number] 14:41:00 15:25:00 Andrea Marino 2016-03-05 2016-03-05 Outpatient Rina, [facility] [id number] 16:54:00 21:21:00 Rachele 26 [place] 2016-02-29 2016-02-29 Outpatient Bayron, [facility] PL [id number] 17:25:00 20:29:00 Good 25 2015-09-03 2015-09-05 Outpatient Mateus Dixon [facility] [id number] 21:30:00 10:26:00 B 24 2015-07-15 2015-07-16 Outpatient Anjel, [facility] [id number] 12:00:00 15:30:00 Janet 23 2015-07-04 2015-07-05 Outpatient Dick, [facility] [id number] 22:07:00 01:09:00 Habacuc 22 Breen 2015-07-04 2015-07-04 Outpatient Recio, [facility] [id number] 11:57:00 14:54:00 Maribel Berkowitz 21 2015-06-03 2015-06-04 Outpatient Ware, [facility] [id number] 23:00:00 02:09:00 Luzmaria Pisano 2015-05-18 2015-05-18 Outpatient Jennifer, [facility] [id number] 11:55:00 18:04:00 Indira S 19 2015-05-09 2015-05-09 Outpatient Rileypaola, [facility] [id number] 12:15:00 15:10:00 Indira S 18 2015-05-02 2015-05-02 Outpatient Jennifer, [facility] [id number] 13:18:00 19:05:00 Indira S 17 2015-04-11 2015-04-11 Outpatient Yovani [facility] [id number] 11:25:00 14:47:00 Gilmar Giordano 16 2015-03-30 2015-03-30 Outpatient Charito, [facility] [id number] 14:39:00 17:11:00 Isatu Ayala 2015-03-21 2015-03-24 Outpatient Richmond, [facility] [id number] 13:24:00 17:30:00 Catarino 14 Blaine 2015-03-11 2015-03-11 Outpatient Dick, [facility] [id number] 14:43:00 17:41:00 Habacuc 13 Breen 2015-03-05 2015-03-05 Outpatient Tata Rushing [facility] [id number] 00:43:00 05:21:00 Martell 12 2015-02-24 2015-02-25 Outpatient Dixon, [facility] [id number] 10:34:00 20:14:00 Tucker 11 2015-02-16 2015-02-18 Outpatient Thu, [facility] [id number] 15:36:00 16:00:00 Kalneerua 10 Mary Katedonna 2013-12-25 2013-12-25 Outpatient Dorothea, [facility] [id number] 11:37:00 14:52:00 Rishabh E 09 2013-12-22 2013-12-22 Outpatient Nba, [facility] [id number] 15:43:00 19:29:00 Jann 08 Jl 2013-12-16 2013-12-17 Outpatient Beth, [facility] [id number] 12:18:00 17:45:00 Alvarez 07 2013-11-07 2013-11-08 Outpatient Sakatya, [facility] [id number] 23:50:00 18:00:00 Dustin Results Test Description [...] Negative (01/19/17 Me [facility]ial 19:21:00 2:21 PM) [place] URINE AND STOOL 2017-01-19 Negative (01/19/17 Me morial 19:21:00 2:21 PM) [place] URINE AND STOOL 2017-01-19 1 [facility] 19:21:00 [facility] URINE AND STOOL 2017-01-19 1 [facility] 19:21:00 [facility] URINE AND STOOL 2017-01-19 7.0 [facility] 19:21:00 [facility] URINE AND STOOL 2017-01-19 1.008 [facility] 19:21:00 [place] URINE AND STOOL 2017-01-19 Clear (01/19/17 2:21 [facility] 19:21:00 PM) [place] CARDIAC ENZYMES 2017-01-19 3.0 [facility] 18:07:00 [facility] CARDIAC ENZYMES 2017-01-19 <0.02 [facility] 18:07:00 [place] CHEM PANEL 2017-01-19 231 [facility] 18:07:00 [facility] CHEM PANEL 2017-01-19 9 [facility] 18:07:00 [facility] CHEM PANEL 2017-01-19 8.4 [facility] 18:07:00 [place] CHEM PANEL 2017-01-19 1.0 [facility] 18:07:00 [place] CHEM PANEL 2017-01-19 3.6 [facility] 18:07:00 [place] CHEM PANEL 2017-01-19 7 [facility] 18:07:00 [facility] CHEM PANEL 2017-01-19 32 [facility] 18:07:00 [place] CHEM PANEL 2017-01-19 104 [facility] 18:07:00 [facility] CHEM PANEL 2017-01-19 3.4 [facility] 18:07:00 [place] CHEM PANEL 2017-01-19 141 [facility] 18:07:00 [place] CHEM PANEL 2017-01-19 0.79 [facility] 18:07:00 [facility] CHEM PANEL 2017-01-19 3.6 [facility] 18:07:00 [facility] CHEM PANEL 2017-01-19 9.1 [facility] 18:07:00 [place] CHEM PANEL 2017-01-19 25 [facility] 18:07:00 [place] CHEM PANEL 2017-01-19 7.2 [facility] 18:07:00 [place] CHEM PANEL 2017-01-19 1.1 [facility] 18:07:00 [facility] CHEM PANEL 2017-01-19 111 [facility] 18:07:00 [place] CHEM PANEL 2017-01-19 31 [facility] 18:07:00 [facility] CHEM PANEL 2017-01-19 90 [facility] 18:07:00 [place] CHEM PANEL 2017-01-19 73 [facility] 18:07:00 [facility] CHEM PANEL 2017-01-19 75 [facility] 18:07:00 [place] HEMATOLOGY 2017-01-19 18:07:00 Test Item Value Reference Range Interpretation Comme nts PTT (test code = PTT) 31.3 s 22.9-35.8 [facility] ZcyppelMKODGOMBYT5437-81-04 18:07:008.5[facility] 2017-01-19 18:07:0042.0[facility] VaftvvhVSPQWHWFHL2166-37-60 18:07:004.92[facility] ThlapasSJUYLNSAWJ4629-43-11 18:07:0014.4[facility] HmcolrrURXMDFJCOO3759-64-04 18:07:0014.2[facility] VvuyghcVOIIODOMPT3217-64-75 18:07:04734Yojyliol [facility] KTGLVNYMAN4851-52-18 18:07:0034.2[facility] JcwpkxeWTWSMMOFZF2101-76-93 18:07:00 Test Item Value Reference Range Interpretation Comments MCH (test code = MCH) 29.2 pg 27.0-31.0 [facility] RuvscssONAVEKZTMP2778-53-61 18:07:0085.5[facility]ann[facility]MATOLOGY 2017-01-19 18:07:007.7[facility] NlulisvNXHBQVGSPN4665-25-53 18:07:00 Test Item Value Reference Range Interpretation Comments PT (test code = PT) 13.7 s 12.0-14.7 [facility] OjzwlivBHJMFUKCXR3495-77-57 18:07:001.03[facility]annHEMATOLOGY 2017-01-19 18:07:000.3[facility] PkxrwfqJVKGQJUNAJ9337-40-02 18:07:0068.3[facility] NgxhwagOVRVCFVEOT3267-59-31 18:07:000.6[facility] TqgvneoTAFVAUWSFC2469-28-14 18:07:005.3[facility] TbwzttvZAJJNNZMWU9895-67-77 18:07:004.5[facility] KSLRXYROAQ9557-50-17 18:07:000.6[facility] JpuumejIPOMIAPWZP3659-04-06 18:07:001.4 [facility] MpmiacfAVALOIKDFI5350-21-45 18:07:007.8[facility]annHEMATOLOGY 2017-01-19 18:07:0018.8[facility]annDR[facility] CQHVIZ6412-30-96 00:23:00Positive *ABN*(01/16/17 7:23 PM)[facility] JRUBPT0075-67-20 00:23:00Negative *NA*(01/16/17 7:23 PM)[facility] WNWSXH6317-43-52 00:23:00Negative *NA*(01/16/17 7:23 PM)[facility] ZLCMAA7522-26-47 00:23:00Negative *NA*(01/16/17 7:23 PM)[facility] WTRIHN0649-38-66 00:23:00See Note (01/16/17 7:23 PM)[facility] TCYFMG4878-78-56 00:23:00Negative *NA*(01/16/17 7:23 PM)[facility] RLIGDE8520-05-98 00:23:00Negative *NA*(01/16/17 7:23 PM)[facility] LHWPFJ0497-53-52 00:23:00Negative *NA*(01/16/17 7:23 PM)[facility] YRTZF7779-02-72 00:23:00Negative *NA*(01/16/17 7:23 PM)[facility] FTNNR3305-65-88 00:23:00Negative *NA*(01/16/17 7:23 PM)[facility] QHMZB7927-93-36 00:23:00Negative (01/16/17 7:23 PM)[facility] KIINK9872-09-94 00:23:00Negative (01/16/17 7:23 PM)[facility] NKAUJ0146-55-25 00:23:00Negative (01/16/17 7:23 PM)[facility] JHVFS5071-50-30 00:23:001.0[facility] OMVXA4604-01-57 00:23:00Negative (01/16/17 7:23 PM)[facility] PWGNI5799-00-37 00:23:00Slight Cloudy (01/16/17 7:23 PM)[facility] LKVNG3673-29-79 00:23:00 Test Item Value Reference Range Interpretation Comments UA Spec Grav (test code = UA Spec 1.007 1 Grav) [facility] XMKJF1542-29-82 00:23:00 Test Item Value Reference Range Interpretation Comments UA pH (test code = UA pH) 6.0 1 5.0-8.0 [facility] PIWJQ7956-18-43 00:23:00Negative (01/16/17 7:23 PM) [facility] SWEOS7760-60-56 00:23:00Yellow *NA*(01/16/17 7:23 PM) [facility]annCARDIAC VTKVQKK5965-38-25 23:57:00<0.02[facility] [place] CARDIAC CMXZRDO8985-10-42 23:57:002.0[facility]annCARDIAC XLJQXXF5813-60-99 23:57:22032Qskfwveg HermannCARDIAC MZBUWWT3679-78-13 23:57:001.0[facility] CHEM NIWWS2533-76-05 23:57:0073[facility] HermannCHEM XYKUH0421-43-84 23:57:0029 [facility]annCHEM IKOWE5269-81-07 23:57:14216Fxhtihko HermannCHEM PANEL 2017-01-16 23:57:84659Sljbuluj HermannCHEM HBIMQ9412-86-77 23:57:0015[facility] HermannCHEM YINSE8800-85-29 23:57:0011.0[facility]annCHEM LJFBQ9113-53-69 23:57:0016[facility]annCHEM GTOVC4153-24-91 23:57:009.4[facility]annCHEM XWNNB2465-47-11 23:57:000.94[facility] HermannCHEM LDBVU4371-85-63 23:57:66443 [facility]annCHEM NPEKO2473-14-56 23:57:004.0[facility] HermannCHEM PANEL 2017-01-16 23:57:003.6[facility]annCHEM YVNDU9407-77-43 23:57:0024[facility]annCHEM PGQFM1717-61-39 23:57:000.6[facility]annCHEM HWPMX4685-89-44 23:57:31451Glotjyty HermannCHEM OLEJI1604-16-72 23:57:0029[facility]annCHEM OHNLM0821-98-04 23:57:000.9[facility]annCHEM EWVGU1012-20-22 23:57:003.9 [facility]annCHE[facility] ATGKN2856-30-42 23:57:007.5[facility]annHEMATOLOGY 2017-01-16 23:57:0014.6[facility] YsnylciWZLHCASNXP4994-97-04 23:57:0042.7[facility] KbepbugDKXTEUKXSU6451-42-71 23:57:0034.2[facility] HtfyqxiRFSTOBXGET3320-42-38 23:57:0085.3[facility] QerngezATWUPOMEVO5974-29-24 23:57:00 Test Item Value Reference Range Interpretation Comments MCH (test code = MCH) 29.2 pg 27.0-31.0 [facility] ObaefhsDQVKXEUZUZ6321-25-86 23:57:0014.3[facility] HermannHEMATOLOGY 2017-01-16 23:57:96897Acdspzhl OmwavtkMYSJBGZNUM6947-09-73 23:57:008.0[facility] QuyaohbGEPJUJPVAW4540-28-63 23:57:006.6[facility] JzacecdEUHYDAZJFR1034-71-53 23:57:005.00[facility] AhdbwtfLXMLGAOLBN9771-63-83 23:57:000.8[facility] [place] GLLPXIYYBW7968-50-41 23:57:004.0[facility] QbahdnxCAYOWANBAD9155-14-94 23:57:000.5 [facility] RuqzitjFAWHWIYECB2738-94-85 23:57:000.1[facility] HermannHEMATOLOGY 2017-01-16 23:57:001.8[facility] GinfvhwMYLPFUHREU0949-79-28 23:57:000.2[facility] KzadblfVMMNFSRDQL1071-21-13 23:57:0060.6[facility] YbzfmblNLGVJZLNDU2589-94-72 23:57:008.3[facility] HkbyuzjCTFPXTYABE8050-82-83 23:57:003.5[facility] [place] EEVNZIRHUR1594-45-30 23:57:0026.8[facility]ann[facility] AND ZJOOS8433-60-48 02:18:00Negative *NA*(11/28/16 9:18 PM)[facility] BWLVR5176-56-34 02:18:00Negative (11/28/16 9:18 PM)[facility] KMPXL6006-98-09 02:18:001.0[facility] RHWEO1123-63-22 02:18:00Negative (11/28/16 9:18 PM)[facility] LQJIN4556-87-28 02:18:00Negative *NA*(11/28/16 9:18 PM)[facility] MWOKN4697-88-36 02:18:00Moderate *ABN*(11/28/16 9:18 PM)[facility] WMODY0722-94-56 02:18:00Yellow *NA*(11/28/16 9:18 PM)[facility] LDMTT2754-68-19 02:18:00 Test Item Value Reference Range Interpretation Comments UA pH (test code = UA pH) 6.0 1 5.0-8.0 [facility] YUZPJ6058-75-27 02:18:00Negative (11/28/16 9:18 PM) [facility] WZUCW3521-94-04 02:18:00Negative (11/28/16 9:18 PM) [facility] LDCIT8012-18-95 02:18:00<=1.005 *NA*(11/28/16 9:18 PM)[facility] DLKTA6247-96-88 02:18:00Clear (11/28/16 9:18 PM) [facility]annCARDIAC CARKPFC2373-99-97 01:37:00<0.02[facility] [place] CARDIAC ENZFDPV7429-50-17 01:37:001.3[facility]annCARDIAC OHKFTPD8193-96-44 01:37:0089[facility]annCARD[facility]AC PRUTXPT2028-15-42 01:37:001.5[facility] [place] CHEM FWPBJ4906-02-05 01:37:003.9[facility] HermannCHEM PDHUT1285-70-24 01:37:0050 [facility]annCHEM SQJBR9450-47-05 01:37:000.9[facility] HermannCHEM PANEL 2016-11-29 01:37:0024[facility] HermannCHEM TETXR4695-01-68 01:37:003.7[facility] HermannCHEM MXVXN9673-28-09 01:37:0089[facility] HermannCHEM CXPJV2895-40-91 01:37:25321Ybzkkfma HermannCHEM LSWGH0897-56-49 01:37:0010[facility] HermannCHEM XMYHA1056-27-01 01:37:001.28[facility] HermannCHEM BTICA1562-07-36 01:37:0030 [facility] HermannCHEM QUUFD7845-40-04 01:37:06014Midvkjfo HermannCHEM PANEL 2016-11-29 01:37:009.5[facility] HermannCHEM OABJA7075-95-64 01:37:009.5[facility] HermannCHEM KOMKC6981-49-02 01:37:008[facility] HermannCHEM NWVNP6310-52-74 01:37:000.7[facility] HermannCHEM ZNXGD9492-47-11 01:37:87775Buepufud HermannCHEM KAXZC9906-35-21 01:37:003.5[facility] HermannCHEM FTFCX4399-64-01 01:37:007.6 [facility]annCHEM SWTSX1256-28-44 01:37:0014[facility] HermannHEMATOLOGY 2016-11-29 01:10:0033.4[facility] JffzownECSLSQHPBT7048-82-11 01:10:16348Orpizibw LyyfxhqWAQEJKROST6046-72-72 01:10:0014.7[facility] FeegqxrQMPJOZHGHZ7232-67-31 01:10:008.1[facility] EegsecmPXESOCOLBF4739-64-64 01:10:005.34[facility] STQWDYDLYH0676-91-84 01:10:0015.5[facility] RssfwcrMSGGBNVHYH9727-65-65 01:10:00 87.0[facility] FpcettkTGJMTFWFMS9538-80-02 01:10:0046.4[facility] HermannHEMATOLOGY 2016-11-29 01:10:00 Test Item Value Reference Range Interpretation Comments MCH (test code = MCH) 29.1 pg 27.0-31.0 [facility] FdmacbxZDYRHFBPYQ8154-76-40 01:10:008.0[facility] HermannHEMATOLOGY 2016-11-29 01:10:000.1[facility] LaddohxKXAGKRQAAI1020-32-61 01:10:002.0[facility] WwsjmlbUYEBCRDHCR9326-35-00 01:10:005.1[facility] DivaamyXVAJQVXEOA1724-96-31 01:10:000.2[facility] HgjtnrbWTMXUSZCVR9967-33-15 01:10:000.8[facility] [place] LBPUQAAXFO0842-02-70 01:10:0063.2[facility] PixbphwIHEFFHIELQ3136-98-87 01:10:00 24.3[facility] VmwwbrsFJAANRGLXO7088-93-28 01:10:002.1[facility]annHEMATOLOGY 2016-11-29 01:10:009.6[facility] NjzsossHDYGVHNCDR1591-77-36 01:10:000.8[facility] HermannVIRAL - WADNEZOG4050-53-38 01:10:00Negative (11/28/16 8:10 PM)[facility] HermannVIRAL - PBYYRTMY8166-81-73 01:10:00Negative (11/28/16 8:10 PM)[facility]annCARDIAC IXBHMGI9098-70-45 01:15:001.3[facility]annCARDIAC ENZYMES 2016-11-07 01:15:00<0.02[facility]annCARDIAC FCSGMMT1958-84-04 01:15:001.9 [facility]annCARDIAC QJDYFEW7320-25-77 01:15:79098Tnlrlqom HermannCHEM PANEL 2016-11-07 01:15:0077[facility] HermannCHEM XFJQG7129-88-98 01:15:0017[facility] HermannCHEM XRYZL4479-43-35 01:15:006.8[facility] HermannCHEM IZOZB1649-67-84 01:15:008.5[facility] HermannCHEM NCPGI3843-44-83 01:15:000.8[facility] HermannCHEM HURGM6890-63-25 01:15:54377Whjagkbv HermannCHEM JEROO3760-58-11 01:15:0031 [facility]annCHEM FNVGF6473-32-23 01:15:003.1[facility] HermannCHEM PANEL 2016-11-07 01:15:000.90[facility] HermannCHEM MYXJM1976-71-96 01:15:45643Keslvkjt HermannCHEM HVGXS1184-82-47 01:15:0012[facility] HermannCHEM FMKUO9433-76-34 01:15:0096[facility] HermannCHEM JELCW7374-96-00 01:15:003.3[facility] HermannCHEM OWYLH8413-18-95 01:15:0076[facility] HermannCHEM HPLUC4298-78-90 01:15:0020 [facility]annCHEM JXANY0910-26-71 01:15:003.5[facility] HermannCHEM PANEL 2016-11-07 01:15:000.9[facility] HermannCHEM SUHNZ5596-88-44 01:15:0010.1[facility] HermannCHEM ZOIUK8369-90-44 01:15:0013[facility] PplrglgKLWQHWUOMS3377-26-38 01:15:002.8[facility] ZogristRCZHYVSVLE5832-89-98 01:15:000.2[facility] [place] PTZUVCMMEE9482-43-98 01:15:000.1[facility] YtblureQKPRUMACYT3412-31-00 01:15:000.7 [facility] KehydsuXCAGPPCGLV6068-97-58 01:15:000.8[facility] HermannHEMATOLOGY 2016-11-07 01:15:004.5[facility] RyjqduzJPSAZTSYFU9338-27-22 01:15:002.2[facility] XcxkpxqIYSFKXOPKR2915-90-26 01:15:0058.5[facility] KceuvpaWLAKPKOKJV8008-04-70 01:15:0028.8[facility] FvktchcLSRPZWLPWQ3419-52-18 01:15:009.1[facility] [place] BEOXFQXTYW5165-16-68 01:15:76455Ttfjmxiy WklgrraNXVNUKIQEU6444-44-72 01:15:00 14.3[facility] UuxwdcpWEQQYJNQJS5775-49-76 01:15:008.1[facility] HermannHEMATOLOGY 2016-11-07 01:15:007.7[facility] SktgxcsGULOKEVJWD0313-38-98 01:15:0013.1[facility] AinyzowQLOGXWJAPP8493-45-59 01:15:004.48[facility] KuhclgrQUDVYUDSQT9084-00-37 01:15:00 Test Item Value Reference Range Interpretation Comments MCH (test code = MCH) 29.3 pg 27.0-31.0 [facility] BtcrzidBKXWOPOLMJ6062-85-96 01:15:0039.1[facility]annHEMATOLOGY 2016-11-07 01:15:0087.3[facility] HcuzxzhUVTWKPSUVK6642-28-21 01:15:0033.6[facility]annDRUG JCMPJU7073-77-55 11:24:00Negative *NA*(10/11/16 5:24 AM)[facility]annDR[facility] QHLHLK0244-61-16 11:24:00Negative *NA*(10/11/16 5:24 AM)[facility]annDR[facility] UPUQRK5125-25-44 11:24:00Negative *NA*(10/11/16 5:24 AM)[facility]annDR[facility] SWOYXH5872-65-93 11:24:00Negative *NA*(10/11/16 5:24 AM)[facility] JZLWCW3710-09-03 11:24:00Positive *ABN*(10/11/16 5:24 AM)[facility]annDR[facility] DGZBMM3382-58-43 11:24:00See Note (10/11/16 5:24 AM)[facility] NKLILQ1154-75-75 11:24:00Negative *NA*(10/11/16 5:24 AM)[facility]annDR[facility] UMYKVZ1173-48-24 11:24:00Negative *NA*(10/11/16 5:24 AM)[facility]annCARDIAC PHLFHGH8098-49-92 09:58:00<0.02[facility] BafbtexNMYSSGNMUV2878-18-98 09:58:00 0.4[facility] LugcmpzLJEPQWEYRW9401-27-83 09:58:000.1[facility]annHEMATOLOGY 2016-10-11 09:58:006.3[facility] LveewtaXIIRRHYTKO2057-64-91 09:58:001.0[facility] OeuoffrKNPAFOURKJ6236-23-38 09:58:002.7[facility] VggakmuOMXHOBVUFL6887-94-70 09:58:002.1[facility] NaxnonxIHXOJLWXEL2404-09-66 09:58:000.6[facility] QLITTYRQQG2985-47-66 09:58:0036.3[facility] OysrwxqIZFPHODPYP9581-94-19 09:58:00 46.0[facility] ZdwqgmmXRYYSCOKPY6372-14-28 09:58:0010.4[facility]annHEMATOLOGY 2016-10-11 09:58:008.7[facility] HchodkjVTVZYGEVXE0036-92-17 09:58:32242Tuurzuma TrrgotfYIGANOSPCY9209-33-62 09:58:00 Test Item Value Reference Range Interpretation Comments MCH (test code = MCH) 29.3 pg 27.0-31.0 [facility] SbixpwlETJUFWLFUM0309-19-41 09:58:0087.2[facility]annHEMATOLOGY 2016-10-11 09:58:0014.4[facility] YtetbclECJEYPEJAU7450-28-62 09:58:0033.6[facility] JaphnmqLKKPCTVDCT9893-72-16 09:58:0013.1[facility] RafacnjPAGREHUVGP5082-24-88 09:58:004.45[facility] NbyjmnhVQMTOTNZCR0074-67-34 09:58:0038.8[facility] KPMDLOSIBA0800-63-47 09:58:005.8[facility] SsskxcbFJHXZE9849-62-34 09:58:002.84 [facility] CzofqlcXVNNAI8935-64-91 09:58:0014[facility] LnsmqshVVTXQD4785-71-11 09:58:0087[facility] XtzorgpUJDSVT0937-73-91 09:58:0071[facility] HermannLIPIDS 2016-10-11 09:58:20023Wibivffh EbsvjmaLBNHZC5054-89-81 09:58:0055[facility]annCARDIAC DLBLLTO2740-39-74 00:00:00<0.02[facility]annCARDIAC ENZYMES 2016-10-10 19:10:33<0.02[facility] HermannCHEM WAYBX3896-47-54 19:10:3392 [facility]annCHEM IHKVI9310-74-91 19:10:338[facility] HermannCHEM PANEL 2016-10-10 19:10:330.78[facility] HermannCHEM CXJWV8594-24-07 19:10:80189Xlftanvn HermannCHEM XVONV2285-56-84 19:10:333.2[facility] HermannCHEM VEOHD8264-37-19 19:10:339.3[facility] HermannCHEM DFWLB3780-31-01 19:10:3331[facility] HermannCHEM CYIRU7698-30-13 19:10:32982Spxttsbk HermannCHEM EQNSD8596-31-05 19:10:10603 [facility]annCHEM VPJBZ5529-30-45 19:10:337.2[facility]annHEMATOLOGY 2016-10-10 19:10:3333.8[facility] FiuyhfvOVXWWXPRXO0624-95-04 19:10:3314.2[facility] SynuynqORQEBZVXXF9983-33-95 19:10:33 Test Item Value Reference Range Interpretation Comments MCH (test code = MCH) 29.4 pg 27.0-31.0 [facility] WqlbhfwPJMTQXXMDZ1814-87-57 19:10:3387.0[facility]annHEMATOLOGY 2016-10-10 19:10:3313.5[facility] WjfpuvlGEKMHSUCNB9896-89-52 19:10:3339.8[facility] TsblawcIDOWNARRHL8818-52-90 19:10:05435Yhbtvqvz HcvrqvbRJXINKUOAE0453-34-55 19:10:338.7[facility] IxtbnnvEWFARMPSBY5561-94-19 19:10:336.6[facility] PZAXEESIRQ3926-74-11 19:10:334.58[facility] NjoknnvTCTNHBAMOB4171-19-33 19:10:33 1.8[facility] AcbebcjCFBHGAEEWA0309-52-31 19:10:330.6[facility] HermannHEMATOLOGY 2016-10-10 19:10:330.3[facility] IwgqjroNLQAZRHDHM8527-22-46 19:10:330.6[facility] FcytidgBKKHGELBWS6255-31-25 19:10:333.9[facility] PsebameJJOXMTNZGA2443-74-46 19:10:339.0[facility] SfsyvhwWFYXDXDSSG8393-49-79 19:10:334.1[facility] ADJFYCTETB8928-98-21 19:10:3359.5[facility] HjrxxuyOLTTQNXHJQ3751-74-66 19:10:33 26.8[facility] HermannCARDIAC IARHTPM4532-72-96 04:07:00<0.02[facility] TWHLTAMVTGWF9525-33-31 04:07:0013.5[facility] ZfeubovDQBLRGSAJTIR1093-63-60 04:07:0079[facility] QaqbexqBAKRRRCYTYKT2238-32-33 04:07:000.89[facility] NQYGJFUQKYPJ7122-04-12 04:07:009[facility] RqrduvwSEIKCDBQGNED4776-83-00 04:07:00 72[facility] VtrgnzfGYRBJZWONULA2519-87-60 04:07:81016Sadkruyg HermannELECTROLYTES 2016-04-14 04:07:0025[facility] DgtyulxHFNUAOCVSWUQ9259-98-42 04:07:008.9[facility] MpgbidoUVZSCLOKFHJE0879-06-83 04:07:61283Eooygnfw UctpfjoOOZLFZIRQFLC5395-18-66 04:07:003.5[facility] WomhrltUPPYJQBMTN4783-69-30 04:07:53122Loqyydyy [place] DHMZPATJJE1076-59-41 04:07:008.5[facility] KeedkosYQARYSGHDO9532-68-95 04:07:00 33.5[facility] MiihhgxBHOLZQGFUB6214-88-37 04:07:00 Test Item Value Reference Range Interpretation Comments MCH (test code = MCH) 28.7 pg 27.0-31.0 [facility] ElynzveSUSSNJXNZM7521-01-20 04:07:0015.0[facility] HermannHEMATOLOGY 2016-04-14 04:07:0038.3[facility] EabsdiiIQWGZLAMOP3715-55-46 04:07:0085.6[facility] KepfxkwWNYPSURALM1214-67-12 04:07:0012.9[facility] CjozosxTSLERIZSXU2566-17-86 04:07:004.48[facility] QvctswcEQLHKMQPBG1253-00-83 04:07:005.6[facility] KEOIVBMOSC5995-79-28 04:07:000.1[facility] TmqbbrfDIWLPEQYUM8392-61-30 04:07:002.2 [facility] SgfrvonGIOWWHWDMC3883-02-01 04:07:000.3[facility] HermannHEMATOLOGY 2016-04-14 04:07:000.5[facility] WqomqucBLDZKBGZPA9911-03-61 04:07:006.1[facility] MxmedqtGRWDJTEEQE9130-36-02 04:07:001.1[facility] PoqumonPTZZZCJQMH1569-22-98 04:07:002.5[facility] BbxtoptEIIASTMQOE1004-32-43 04:07:0038.8[facility] [place] RDREHDTXGZ0253-61-80 04:07:009.2[facility] CsvdhzvNWGRADMZQG0485-48-54 04:07:00 44.8[facility] KytpzabSXKESNRRCS8174-12-64 04:07:008[facility] HermannTOXICOLOGY 2016-04-14 04:07:000.008[facility]annCARDIAC TLXJTKR9514-85-00 11:47:00 <0.02[facility] TgimziuDHFIEY5090-45-74 11:47:003.39[facility] HermannLIPIDS 2016-03-12 11:47:0018[facility] TxvfsjiMPBPXH4124-76-43 11:47:0073[facility] [place] KNZSDC0149-02-59 11:47:0090[facility] XnkrvnlIRAAAK8696-02-91 11:47:31367Cwlkbaht BxwsjpnLYBHVW9088-67-27 11:47:0038[facility]annSPECIAL BKADKVPMZ6403-10-50 11:47:005.9[facility]annCARDIAC HAHYRWE8611-03-49 02:33:0081[facility] CARDIAC HJZLTBV5900-32-57 02:33:000.02[facility]annCARDIAC FODGCQG1013-10-22 02:33:001.6[facility]annCARDIAC TOBMIKQ1787-11-91 02:33:001.3[facility] [place] TYWNVBPYNO6196-22-55 21:03:00 Test Item Value Reference Range Interpretation Comments PROTIME (test code = PROTIME) 14.0 s 12.0-14.7 [facility] OgpvcjwCYIYGMGJTX5930-07-70 21:03:001.05[facility] HermannHEMATOLOGY 2016-03-11 21:03:00 Test Item Value Reference Range Interpretation Comments aPTT (test code = aPTT) 38.7 s 22.9-35.8 [facility] VvskitdBQNDOAALGD4678-41-89 21:03:000.49[facility]annCARDIAC ENZYMES 2016-03-11 20:14:001.6[facility]annCARDIAC SBPNXNU7836-25-12 20:14:001.3 [facility]annCARDIAC FZGAHWC5271-18-32 20:14:00<0.02[facility] [place] CARDIAC HQMNZRK1195-42-18 20:14:0083[facility]annCARDIAC SHCAYNY6437-86-69 20:14:0050[facility] HermannCHEM JNZCA2686-82-38 20:14:90290Tvsdimgs HermannCHEM JQMYH0997-55-81 20:14:59091Lqberovz HermannCHEM LDQXL2826-34-72 20:14:002.8 [facility]annCHEM CNOHC2849-01-62 20:14:001.2[facility] HermannCHEM PANEL 2016-03-11 20:14:0015[facility] HermannCHEM YHBFK0580-40-14 20:14:0010.4[facility] HermannCHEM NFYXL8251-61-77 20:14:0014[facility] HermannCHEM NIIKT3459-05-48 20:14:006.1[facility] HermannCHEM KSJIZ6775-78-12 20:14:000.5[facility] HermannCHEM NILSI0826-54-53 20:14:007.7[facility] HermannCHEM CDBOM0179-05-01 20:14:0026 [facility]annCHEM WEUAT3525-82-37 20:14:19790Rcammdoi HermannCHEM PANEL 2016-03-11 20:14:003.4[facility] HermannCHEM AYNAS6202-89-95 20:14:24202Juotrfpo HermannCHEM GYGHF1108-08-82 20:14:000.61[facility] HermannCHEM WZULK9764-08-10 20:14:009[facility]annCHEM PJWKF0093-24-10 20:14:0076[facility]annCHEM BCQNF0711-66-78 20:14:0088[facility]annCHEM XAVCZ9539-57-28 20:14:003.3 [facility]annCHEM KJQJL7938-88-50 20:14:0015[facility]annHEMATOLOGY 2016-03-11 20:14:001.8[facility] VefklluDEDZVEGGST1726-79-10 20:14:000.5[facility] SqfygirUUMVAPBOKH0694-03-49 20:14:001.0[facility] ChxndhnQJWMWICCDT8609-31-59 20:14:004.1[facility] MdwwcasRNPIBSKIYI4288-75-36 20:14:000.2[facility] TXEKSYKBQU3716-52-80 20:14:000.1[facility] PsufwxhMRRYLKBNMC7310-54-62 20:14:00 61.4[facility] VwjvsfkDGFVUQGOKF8003-93-11 20:14:003.5[facility] HermannHEMATOLOGY 2016-03-11 20:14:0026.6[facility] EcwcfqcVXIOZYAWZU3216-24-70 20:14:007.5[facility] BrnpkqvNYCXCUHIOT9043-48-43 20:14:006.7[facility] IpbcmmtYMHIEDNAPM0810-67-40 20:14:0012.2[facility] PsuknurLDKHJYXPSC6111-60-40 20:14:004.26[facility] [place] OTKKJBAFOE3605-26-91 20:14:00 Test Item Value Reference Range Interpretation Comments MCH (test code = MCH) 28.7 pg 27.0-31.0 [facility] QwujzmyPKWNHEQNAR7868-43-88 20:14:0086.0[facility] HermannHEMATOLOGY 2016-03-11 20:14:0014.9[facility] UwuqrljNVCOYXLJTU0332-79-39 20:14:0033.3[facility] UltqqneGJUOACHADI3844-91-81 20:14:0036.6[facility] KwyqdjcJOVGUCDSHX8905-34-27 20:14:008.7[facility] CcbwgcgUVQNLNCZWY9251-07-91 20:14:71121Aamwwdjv HermannURINE AND FLUXL1913-14-69 20:14:00Negative (03/11/16 3:14 PM)[facility] XSUEO6500-86-53 20:14:00Negative (03/11/16 3:14 PM)[facility] WFYIE2327-90-06 20:14:00Negative (03/11/16 3:14 PM)[facility] NUYET9832-22-57 20:14:000.2[facility]UR[facility] AND OJDFO0700-09-87 20:14:00 Clear (03/11/16 3:14 PM)[facility] FGDWT7828-31-63 20:14:00 Negative (03/11/16 3:14 PM)[facility] MRYUK2676-70-51 20:14:00 <=1.005 *NA*(03/11/16 3:14 PM)[facility] YYEZB9277-59-06 20:14:00 Test Item Value Reference Range Interpretation Comments UA pH (test code = UA pH) 6.5 1 5.0-8.0 [facility] HAFGZ3734-40-84 20:14:00Negative *NA*(03/11/16 3:14 PM) [facility] EFAHI6076-48-81 20:14:00Negative *NA*(03/11/16 3:14 PM) [facility] HMRMO1213-98-16 20:14:00Negative (03/11/16 3:14 PM) [facility] OGWFU2996-58-86 20:14:00Yellow *NA*(03/11/16 3:14 PM) [facility] EBLVG5426-72-08 00:22:00Yellow *NA*(02/29/16 7:22 PM) [facility] XYNXG8354-69-74 00:22:00 Test Item Value Reference Range Interpretation Comments UA pH (test code = UA pH) 6.0 1 5.0-8.0 [facility] CLFMJ9377-50-60 00:22:00Clear (02/29/16 7:22 PM)[facility] OSPJF1049-34-37 00:22:00 Test Item Value Reference Range Interpretation Comments UA Spec Grav (test code = UA Spec 1.015 1 Grav) [facility] PNFFB2742-25-63 00:22:00Trace *ABN*(02/29/16 7:22 PM) [facility] SXIYR5319-80-13 00:22:00None Seen (02/29/16 7:22 PM) [facility] VRNFS3781-19-51 00:22:00Negative (02/29/16 7:22 PM) [facility] KDUKK1776-51-82 00:22:001.0[facility] QEAXL7873-56-48 00:22:00Negative (02/29/16 7:22 PM)[facility] STOOL 2016-03-01 00:22:00Negative (02/29/16 7:22 PM)[facility] STOOL 2016-03-01 00:22:00Negative *NA*(02/29/16 7:22 PM)[facility] STOOL 2016-03-01 00:22:00Negative *NA*(02/29/16 7:22 PM)[facility] STOOL 2016-03-01 00:22:00Negative (02/29/16 7:22 PM)[facility]annCARDIAC ENZYMES 2016-02-29 23:14:00<0.02[facility]annCARDIAC VPABSJK9882-27-34 23:14:001.1 [facility]annCARDIAC EZZDZTW0220-65-78 23:14:70668Iuqercpb HermannCARDIAC IUQFOGM0328-42-56 23:14:007[facility]annCARDIAC SYFMEMH3272-70-21 23:14:000.8 [facility] HermannCHEM DHZWX3675-43-50 23:14:0080[facility]annCHEM PANEL 2016-02-29 23:14:0013[facility] HermannCHEM OMKFB1691-58-85 23:14:001.0[facility] HermannCHEM USHQE7584-42-81 23:14:003.6[facility] HermannCHEM YPZWZ9121-95-94 23:14:009[facility]annCHEM OBAAP4128-42-65 23:14:007.1[facility]annCHEM DIQRH4898-25-62 23:14:0010.0[facility] HermannCHEM DLCQF5006-52-25 23:14:87071 [facility]annCHEM JBWZO1526-01-48 23:14:003.0[facility] HermannCHEM PANEL 2016-02-29 23:14:000.88[facility] HermannCHEM BKFVY8579-46-58 23:14:0030[facility]annCHEM IOBKC6584-94-40 23:14:000.6[facility] HermannCHEM ELBSK5699-11-88 23:14:008.7[facility]annCHEM YOMNB4390-36-54 23:14:93021Ttfrwsua HermannCHEM PIGAG8194-34-21 23:14:0015[facility]annCHEM LLHEW7115-57-40 23:14:0088 [facility]annCHEM NEOIG9415-61-07 23:14:003.5[facility] HermannCHEM PANEL 2016-02-29 23:14:008[facility] HermannCHEM HOILF6918-26-77 23:14:0089[facility] OtelxtoPGBMBGJJCD8083-43-13 23:14:00 Test Item Value Reference Range Interpretation Comments PROTIME (test code = PROTIME) 13.2 s 12.0-14.7 [facility] MvxjhndPYMQDVTTPM5146-92-96 23:14:000.97[facility]annHEMATOLOGY 2016-02-29 23:14:0015.3[facility] VmrrvlyRVTKOIAPHT1016-66-00 23:14:0032.9[facility] KrogvjwJMKWMSPFOT2878-76-69 23:14:0043.8[facility] TqbssdsHUXRXSYDUO5365-79-25 23:14:00 Test Item Value Reference Range Interpretation Comments MCH (test code = MCH) 28.1 pg 27.0-31.0 [facility] WibuwkbCYSUXWVFVZ2815-54-76 23:14:0085.5[facility] HermannHEMATOLOGY 2016-02-29 23:14:005.3[facility] VcrtycuFFOYXCTOSN4716-00-39 23:14:0014.4[facility] ZumjvmsEWHZTDYRFO6980-10-57 23:14:005.12[facility] CghrcmuIIVCDRVCUK2949-45-41 23:14:20133Haskbvub NaoqldfAAFHJWBXXT3470-58-24 23:14:008.1[facility] [place] NJQWERHSLP3460-54-43 23:14:0057.2[facility] WhsfiilZEKZHIESMS7292-72-05 23:14:00 11.7[facility] BfpaiebHVNBZTJFAG1298-37-09 23:14:0024.1[facility] HermannHEMATOLOGY 2016-02-29 23:14:000.1[facility] SwsnzmgECXNZMKCHB9136-73-71 23:14:000.6[facility] DqvxvuyRWPSPDJRLG0136-72-77 23:14:001.3[facility] EiekspwXCUHGCKFZY1580-14-00 23:14:000.3[facility] RgkzbodUYCMHJIPQX6448-79-18 23:14:003.0[facility] [place] UJQXTUFUNN9140-47-01 23:14:005.9[facility] OifwgtbQTTNCCDQAR9861-15-70 23:14:001.1 [facility]annCARDIAC RXRGAQZ0078-59-85 17:04:000.7[facility]annCARDIAC XQQCLFB5042-74-85 17:04:000.7[facility]annCARDIAC BJVYYWK7073-88-85 17:04:00 <0.02[facility]annCARDIAC DNEGHXT2203-41-81 17:04:0097[facility] UFFHYCRABVWQ4543-17-74 17:04:0018.3[facility] QutpyuvNPOCYNANJUQN2107-90-47 17:04:0078[facility] QjyvuaiRJKXOSBMZODI8056-87-92 17:04:00781Upffprxh [place] OQIOPZQFVFFJ7238-60-36 17:04:0010[facility] JyaixttOLGBNGDZWCAS5595-55-05 17:04:00 0.90[facility] NcavkvfSHVBADIRTUJO7435-91-91 17:04:0020[facility] [place] SALPUJZMKGWP8503-84-09 17:04:009.4[facility] KivnsprYJRQYZQJEAEX8546-86-00 17:04:004.3[facility] FjspcdjQALWWPXOWFRY4977-77-20 17:04:08687Qijojwba [place] MDBDXBOLFHWS5084-17-74 17:04:80872Audlguqi VcrdgbcDIGKQMIMPR4117-13-96 17:04:00 9.6[facility] WcfcutzHAVFYAPCLG5517-91-19 17:04:0041.4[facility] HermannHEMATOLOGY 2015-09-04 17:04:0013.1[facility] OcxmaofAFAXZLQDOE7247-46-44 17:04:004.74[facility] FrpnawbTTRBTIKLTX3243-63-75 17:04:0087.3[facility] BgpekpwZQCSZIFPRE1552-78-35 17:04:0031.5[facility] OagvxgvHGXTOYOCRY7750-31-50 17:04:00 Test Item Value Reference Range Interpretation Comments MCH (test code = MCH) 27.5 pg 27.0-31.0 [facility] SpzucyjQAWCGKSTNX8564-17-57 17:04:008.7[facility] HermannHEMATOLOGY 2015-09-04 17:04:04720Gwvoptvn KuwlaziFUJQAHLKEY7757-73-81 17:04:0014.4[facility] TvtssweYCGPRHRIRW5515-71-64 17:04:000.1[facility] YnzehrzVFXFORFABG5123-84-22 17:04:000.5[facility] KiiivcjEEIVSTKISE2917-82-98 17:04:00Normal (09/04/15 11:04 AM) [facility] LwqdkzsEFDYWXTBKK7073-91-24 17:04:00Normal (09/04/15 11:04 AM)[facility] HkwilaaRHVWBBCWXO4777-39-44 17:04:0093.3[facility] ItvioctRLYXWFFYEG1528-07-63 17:04:000.2[facility] XxczirwRYBXMLGKIU9716-40-87 17:04:005.4[facility] DKKYDFQRQK4153-17-27 17:04:001.1[facility] ZkwosukDJDUPHREUE4255-59-57 17:04:009.0 [facility] OqhsbkiFJEBLU4258-47-44 17:04:0014[facility] BrbgmlwUWLQWF1804-71-13 17:04:56179Nqmxjvko PssipvwECCRMY0768-19-88 17:04:0054[facility] HermannLIPIDS 2015-09-04 17:04:0071[facility] JptcginZFQHCP4326-37-04 17:04:21091Ihwlgmdg QrvmykaGJCZGS7140-45-09 17:04:003.67[facility]annCARDIAC OXYICYL7373-61-08 10:50:000.6[facility]annCARDIAC BBDZMCM6965-00-16 10:50:000.6[facility] [place] CARDIAC LUCEADH0783-80-68 10:50:00<0.02[facility]annCARDIAC ENZYMES 2015-09-04 10:50:69158Gfjfopml HermannCARDIAC NZUNSSR6514-98-25 04:33:38253 [facility]annCARDIAC LBRSTGW7159-59-40 04:33:00<0.02[facility] CARDIAC SCDUEAP0220-37-27 04:33:000.8[facility]annCARDIAC KENEAYA3958-56-16 04:33:000.7[facility] HermannCHEM AKPQK8460-71-33 04:33:0087[facility] HermannCHEM OZAHL2632-10-03 04:33:008[facility] HermannCHEM DUBTY8990-13-94 04:33:000.82 [facility]annCHEM VPXWW4637-27-34 04:33:19138Xardlasz HermannCHEM PANEL 2015-09-04 04:33:57782Ctvluorg HermannCHEM ZYPUG6673-93-02 04:33:003.9[facility] HermannCHEM RERTI4549-88-61 04:33:94523Mlsrcbym HermannCHEM GXAYN4855-17-81 04:33:0013.9[facility] HermannCHEM QJOJI1933-07-42 04:33:009.2[facility] HermannCHEM DRUCU1121-74-22 04:33:0025[facility] MyjrnqjAOYTFFWTGF0230-76-60 04:33:007.4 [facility] YglqrlvFKXTUXSRHQ6093-34-90 04:33:0012.4[facility] HermannHEMATOLOGY 2015-09-04 04:33:004.57[facility] PktjmyuMNLRFFKEOC4145-04-07 04:33:0039.4[facility] MsixutgYVWEXNEBVJ1167-94-41 04:33:0086.1[facility] NhttvngHHMRFZSMYU8782-18-62 04:33:0014.7[facility] CqrqjwmEFGFEGBOAZ1832-56-73 04:33:0031.6[facility] [place] JUFNGPESZI2903-88-49 04:33:00 Test Item Value Reference Range Interpretation Comments MCH (test code = MCH) 27.2 pg 27.0-31.0 [facility] KvsblbaEABBCPNHED6325-92-25 04:33:008.3[facility] HermannHEMATOLOGY 2015-09-04 04:33:97027Tfdejdfs CujiolbXNMFZZBXFR9352-30-45 04:33:005.5[facility] QfgtowmXRPQLGRZIB4627-37-41 04:33:006.5[facility] BovnnviNCPKETBFSU0624-85-23 04:33:0031.7[facility] GxgwxepFRLNKTKDIU0026-70-13 04:33:0055.0[facility] UGSNEJACVN9708-50-93 04:33:000.5[facility] UvfnuxuVKZRSFCBXL3335-54-38 04:33:002.3 [facility] MuhispiAOCBKEGLMZ7407-35-49 04:33:004.0[facility]annHEMATOLOGY 2015-09-04 04:33:001.3[facility] YjsydmiRSQJOKCSRE7478-75-66 04:33:000.1[facility] XtiiarqZRIOVOUXBM2581-09-48 04:33:000.4[facility] HermannCARDIAC MEUXFNI7276-26-73 10:25:00<0.02[facility]annCARDIAC HPJCBQL2882-99-06 10:25:0075[facility]annCARDIAC BDXXFYJ3680-04-93 10:25:000.9[facility]annCARDIAC ENZYMES 2015-07-16 10:25:001.2[facility] HermannCHEM BBEGA1279-20-88 10:25:45122Mbnvjvhz HermannCHEM AOHYK1155-20-75 10:25:000.6[facility] HermannCHEM EJADN5161-25-51 10:25:003.1[facility] HermannCHEM SUNFM5576-60-84 10:25:009.0[facility] HermannCHEM ENXNL7523-02-62 10:25:006.3[facility] HermannCHEM NNTES2098-36-52 10:25:0014 [facility]annCHEM WILPL6456-59-61 10:25:0089[facility] HermannCHEM PANEL 2015-07-16 10:25:0019[facility] HermannCHEM JQPHF6483-69-38 10:25:0025[facility] HermannCHEM CSCWZ6564-12-43 10:25:004.2[facility] HermannCHEM OIUWM3946-33-75 10:25:97315Cxeagngg HermannCHEM DEFGJ6024-55-24 10:25:0014[facility] HermannCHEM FXZJH1697-03-76 10:25:000.70[facility] HermannCHEM IHIHQ4521-30-63 10:25:24010 [facility]annCHEM MUBJT3513-46-89 10:25:0078[facility] HermannCHEM PANEL 2015-07-16 10:25:0020[facility] HermannCHEM BATZX0519-32-40 10:25:0010.2[facility] HermannCHEM KPSYC6416-55-04 10:25:001.0[facility] HermannCHEM VRMMC9684-13-42 10:25:003.2[facility] LorhwhoCLPCPYYABQ9341-56-27 10:25:008.6[facility] [place] ZCFILCRTQM9065-67-65 10:25:81095Glymttfi NxpkofvVVVAXRMFHS2998-05-24 10:25:00 14.3[facility] ZvrwonbVXAYPIVRIT5172-28-80 10:25:004.53[facility]annHEMATOLOGY 2015-07-16 10:25:005.5[facility] WybormhWJVJHRBQPG0507-43-73 10:25:00 Test Item Value Reference Range Interpretation Comments MCH (test code = MCH) 27.9 pg 27.0-31.0 [facility] ZecgpwiFNVLVECGRC9748-51-78 10:25:0031.5[facility] HermannHEMATOLOGY 2015-07-16 10:25:0088.6[facility] IqnqfpsXGRLDOOBSK0981-82-14 10:25:0040.2[facility] VxesuudNURKRURMKC4992-87-19 10:25:0012.6[facility] PdcekejSTMMSIPBSQ3056-21-78 10:25:000.2[facility] SrqbogfWFSHCPPJPZ7781-28-92 10:25:002.0[facility] [place] LZONQBIQBP3206-63-90 10:25:000.9[facility] XggqzzrEJWIJIVHEX3413-72-94 10:25:000.6 [facility] XtotcgxTRSHEFBQQP7667-59-89 10:25:002.6[facility] HermannHEMATOLOGY 2015-07-16 10:25:0011.0[facility] FzroubjKYKLOMNDNI2157-48-97 10:25:004.0[facility] EltfbedWDQUOSRKJV5332-07-74 10:25:0036.1[facility] QxmhtaaFMRKSCGLWB6616-87-18 10:25:0048.0[facility] GwxcghdMRWFPSOKUW7893-97-44 10:25:000.1[facility] CARDIAC LGHLGWC0907-74-74 04:22:00<0.02[facility] HermannCARDIAC ENZYMES 2015-07-16 04:22:0088[facility]annCARDIAC ZTWZKQO6766-42-92 04:22:001.1 [facility]annCARDIAC NYCEWAA7920-81-15 04:22:001.0[facility] HermannHEMATOLOGY 2015-07-15 21:33:006.4[facility]annCARDIAC CGHHVXJ7159-32-41 21:33:00<0.02 [facility]annCARDIAC CNATQYK5524-27-76 21:33:001.2[facility]annCARDIAC KNGVRPQ7096-44-37 21:33:97714Ywsbqomv HermannCARDIAC TLHNDWQ3914-95-40 21:33:00 1.2[facility] HermannCHEM GQIWB8567-22-27 21:33:0090[facility] HermannCHEM PANEL 2015-07-15 21:33:0091[facility] HermannCHEM REOLH3481-62-08 21:33:0019[facility] HermannCHEM EIYWB5486-94-42 21:33:0017[facility] HermannCHEM VLNBD1800-51-00 21:33:0012[facility] HermannCHEM VCXUM7524-22-58 21:33:000.8[facility] HermannCHEM MWDQK1495-25-55 21:33:0011.1[facility] HermannCHEM YHAFM2455-54-79 21:33:003.5 [facility]annCHEM XFHTF3707-40-57 21:33:0027[facility]annCHEM PANEL 2015-07-15 21:33:006.8[facility] HermannCHEM OEFKD1339-72-29 21:33:008.7[facility] HermannCHEM BGHGU1260-65-61 21:33:003.3[facility] HermannCHEM HOWQE5682-26-16 21:33:001.1[facility] HermannCHEM ZKKZB8233-98-12 21:33:000.80[facility] HermannCHEM ABPJS8567-03-68 21:33:77714Bwbajliq HermannCHEM BNLPF9999-04-76 21:33:56913 [facility]annCHEM KOVPM9307-50-60 21:33:004.1[facility] HermannCHEM PANEL 2015-07-15 21:33:0010[facility] HermannCHEM YWIXK1016-14-69 21:33:0072[facility] ZhyvszpTIMBLLRLLH2126-61-20 21:33:003.3[facility] TvvxeqkPFKCFPLMED5857-81-36 21:33:000.2[facility] KagsfvuXSYENAUYRX0088-71-86 21:33:000.6[facility] XGLCIOSUIJ1314-61-63 21:33:002.3[facility] DymzzzgWOJBZUSTKD7494-36-04 21:33:00 51.8[facility] HdanlrtBOBEDDZUDE8572-18-43 21:33:000.6[facility] HermannHEMATOLOGY 2015-07-15 21:33:003.1[facility] UwklkbaCSYLYKRXBT6700-44-06 21:33:009.4[facility] PnjstmsIXYQECOZFR8086-51-29 21:33:0035.1[facility] JumwmtuYHSEYCTUAW5418-85-41 21:33:000.0[facility] CvjadnjMFDZAXLRUU2355-46-87 21:33:009.1[facility] MVCZAKJTNO2186-37-87 21:33:0087.6[facility] TxqgbjqSXIWTOPDEQ9123-15-98 21:33:00 12.9[facility] UqrajybXMZWWWHBLW9623-21-91 21:33:0039.8[facility]annHEMATOLOGY 2015-07-15 21:33:0032.3[facility] IlqtgkgQYVKCYARNL5740-44-25 21:33:0014.8[facility] UorajutUYNBDEMHFW9954-02-97 21:33:00 Test Item Value Reference Range Interpretation Comments MCH (test code = MCH) 28.3 pg 27.0-31.0 [facility] RdezgpgBFHUFITZNT0965-35-62 21:33:32742Okhkwwbf HermannHEMATOLOGY 2015-07-15 21:33:004.54[facility] OswzgmhJQVQMCVBMK6111-31-40 19:18:00Negative (05/18/15 2:18 PM)[facility]annCARDIAC DGZFDDK6781-17-94 18:26:00<0.02 [facility]annCHEM RQFVP3613-74-05 18:26:000.1[facility]annCHEM PANEL 2015-05-18 18:26:003.9[facility]annCHEM QYZGI2002-27-83 18:26:82796Teyrrcib HermannCHEM QLMVV8015-01-08 18:26:000.5[facility]annCHEM KZIUP3680-31-99 18:26:0022[facility]annCHEM WWRNV6243-18-77 18:26:0018[facility]annCHEM VEXTK4212-27-28 18:26:007.9[facility]annCHEM BIMLR1506-14-76 18:26:004.0 [facility]annCHE[facility] OTSRV8674-74-53 18:26:000.4[facility]annCHEM PANEL 2015-05-18 18:26:001.0[facility]annCHEM ZPACZ0008-89-63 18:26:77008Tqivmici HermannCHEM THTLA7638-60-53 18:26:0078[facility]annCHEM YHUUM1989-38-44 18:26:95288Gyswyszx HermannCHEM YGQNG0697-77-39 18:26:003.9[facility]annCHEM ZHFNI2775-26-45 18:26:000.9[facility]annCHEM XDMCK0452-65-69 18:26:0087 [facility]annCHEM GYAVH3315-94-18 18:26:007[facility]annCHEM PANEL 2015-05-18 18:26:47360Ckjfjtee HermannCHEM DEHOY8218-75-61 18:26:0028[facility]annCHEM EZHKP9441-50-06 18:26:0010.2[facility]annCHEM VJZRZ6976-43-27 18:26:0010.9[facility] TmlspqrULIKZQGZAK9683-45-10 18:26:0014.2[facility] VOMFPTAMNW7364-38-83 18:26:004.96[facility] VduuujeDZZRUQEOGF4555-45-64 18:26:00 Test Item Value Reference Range Interpretation Comments MCH (test code = MCH) 28.7 pg 27.0-31.0 [facility] PbhshrkOLORWLVMZY6866-90-35 18:26:0032.9[facility]annHEMATOLOGY 2015-05-18 18:26:0043.3[facility] HcbadkxGWQFRBCFCQ0592-43-24 18:26:0087.2[facility] SvddacpODBNQCFACU8009-00-40 18:26:006.8[facility] XnncwttJZNLIHHEEA6912-43-51 18:26:85170Mgceffau CrtarwcAKFLSSNYOV5301-71-29 18:26:008.2[facility] LYTXRRENHA3856-32-71 18:26:0014.5[facility] XnyvoigBDPSINTLMI2797-81-24 18:26:00 55.6[facility] NifcuosLLIVSCOCDW1014-16-80 18:26:0032.7[facility]annHEMATOLOGY 2015-05-18 18:26:008.5[facility] UaegoorDNNLNQHEDC5061-97-83 18:26:003.8[facility] MclukdqMEIFVDLRXQ3325-28-41 18:26:000.6[facility] QqogidhHIMKFFJGVG5701-10-87 18:26:002.2[facility] DxnufhbORGGBYZJIP5909-63-52 18:26:002.6[facility] DDQZDGUGBP7698-41-62 18:26:000.2[facility] KjvegaxDGZOIVASNK1455-41-14 18:26:000.6 [facility] OpyoelsCLHOJPDSGH0058-24-24 18:26:00Positive *NA*(05/18/15 1:26 PM) [facility] ZyzkyfbFQNQYYWSIX9209-38-21 18:26:02066858Yowxmjxc HermannIMMUNOLOGY 2015-05-18 18:26:005.5[facility] HermannCARDIAC HBYVRMX4733-86-77 18:51:00<0.02 [facility]annCHEM MFXEG4560-69-84 18:51:0090[facility]annCHEM PANEL 2015-05-09 18:51:0028[facility] HermannCHEM ISNSO2962-49-28 18:51:009.6[facility]annCHEM XKPMA1003-17-48 18:51:76494Ioynlsbo HermannCHEM AGUTP8356-76-34 18:51:000.8[facility] HermannCHEM KXABJ1353-43-33 18:51:18519Xanmgpit HermannCHEM FCXJC0535-65-57 18:51:003.7[facility] HermannCHEM YSWFD1995-83-33 18:51:58908 [facility]annCHEM JRSDB9859-32-09 18:51:007[facility]annCHEM PANEL 2015-05-09 18:51:009.7[facility] RskhvdyHWJNEEDJUU4888-34-48 18:51:0014.4[facility] TepgozcLZQHPVQYLH6667-16-03 18:51:0032.5[facility] UneuzexARVNRNHDRN7561-33-58 18:51:00 Test Item Value Reference Range Interpretation Comments MCH (test code = MCH) 28.7 pg 27.0-31.0 [facility] PvcejywIYEVBVCYXU1770-20-61 18:51:99600Xidvyulh HermannHEMATOLOGY 2015-05-09 18:51:007.6[facility] SzqrwdmTRUBDMJQRK8451-60-58 18:51:0088.2[facility] NijupykEXBOTBPVWG4767-20-67 18:51:0041.9[facility] RzjsqouKAEOVRJTYN3259-63-46 18:51:004.75[facility] XexdtknMXPZEPJYZD6462-75-34 18:51:0013.6[facility] TOMLRZVNMA4591-71-85 18:51:005.6[facility] ElkvjwtDUEVJFHWFF9057-37-70 18:51:002.1 [facility] CkjdixkQQBOGZXDVH6070-67-41 18:51:000.1[facility]annHEMATOLOGY 2015-05-09 18:51:000.2[facility] GiiyhzvSEBQTUYHIV4417-26-36 18:51:000.4[facility] HfupeslBNNJAFYGFY5819-97-50 18:51:0050.8[facility] IiosrmdBYTHCLYGXM6145-24-06 18:51:002.8[facility] DsheweaNKBITRENIH6979-53-81 18:51:002.9[facility] GGNQXPHQTG7477-93-52 18:51:001.1[facility] JparvxlLFLXINIQFF0083-48-31 18:51:007.7 [facility] TeggjzhPOKQGZRKWG8464-89-53 18:51:0037.6[facility] HermannCARDIAC ENZYMES 2015-05-02 22:03:00<0.02[facility] HermannCHEM QSXNU1865-66-32 22:03:003.2 [facility]annCHEM CQTLV1275-75-51 22:03:002.1[facility] HermannELECTROLYTES 2015-05-02 22:03:0012.4[facility] EnsjlkvDNWBHLTRQEAC6653-32-64 22:03:0068[facility] QqpmgfvLHYTCYXSQMGN6216-77-95 22:03:54590Bbupwyda MhvdajiFXOSQFQQNXWJ8957-06-21 22:03:83296Xxcekuuv JqzwccpVBNKWSTKBRJD9225-96-73 22:03:0028[facility] ZYDXXNCICBEB2103-27-60 22:03:008.8[facility] NpwxqmqFUYAFBASSSVT9636-68-98 22:03:003.4[facility] FyoqjhhMBNTHBQYNJPS2132-27-71 22:03:000.9[facility] OOGHNWHBEGCH8845-48-90 22:03:0092[facility] ZvnjhkoZUCLDCRTAIBG9233-15-89 22:03:00 6[facility] TbqdrkgENPXSDBGKE5672-26-07 22:03:008.0[facility]annHEMATOLOGY 2015-05-02 22:03:0014.1[facility] EnxmaqwMQOJPIQSEC7409-80-63 22:03:59030Xtngvcyn QmlgsjyQWULAMKORI7090-95-81 22:03:0032.6[facility] FscykocXYNEOSAFLO0691-63-11 22:03:008.0[facility] XthlcqpCBRIDQIWTP8793-20-24 22:03:0040.2[facility] ZFPKSRPGNA7897-87-93 22:03:0087.4[facility] CjijejwJTDBIUQPGK4121-97-57 22:03:00 13.1[facility] LnqkfclQWBQWXGKCE8946-03-36 22:03:004.60[facility]annHEMATOLOGY 2015-05-02 22:03:00 Test Item Value Reference Range Interpretation Comments MCH (test code = MCH) 28.5 pg 27.0-31.0 [facility] XcxdfzeILZMVKYUJM4111-47-08 22:03:0026.3[facility]annHEMATOLOGY 2015-05-02 22:03:0060.9[facility] RjamboiFCHXSJWVBJ1459-32-49 22:03:001.0[facility] FcbrkmnGFXVWKGGSV5425-86-40 22:03:003.0[facility] OyyssmcYEUKJWWUYW7805-48-38 22:03:008.8[facility] UvcueljDJMUSRQRBF2895-70-16 22:03:000.7[facility] TVCKZWFJDU2778-93-50 22:03:000.2[facility] OcstfzkVBWMJUWRUW9585-72-97 22:03:002.1 [facility] IviiuiuIMWHRUUFTQ2303-87-07 22:03:004.9[facility]annHEMATOLOGY 2015-05-02 22:03:000.1[facility]annURINE AND NPQCP0142-86-49 21:38:00Negative (05/02/15 4:38 PM)[facility]UR[facility] AND HTKFM8938-63-73 21:38:00Moderate *ABN*(05/02/15 4:38 PM)[facility] MZSMB7849-89-62 21:38:00None Seen (05/02/15 4:38 PM)[facility] CXCQF2792-72-03 21:38:00None Seen (05/02/15 4:38 PM)[facility] HMZZF5429-55-37 21:38:00Negative (05/02/15 4:38 PM)[facility] QSZXS2989-26-16 21:38:00Negative *NA*(05/02/15 4:38 PM)[facility] WAEMW8735-85-57 21:38:000.2 [facility]annURINE AND FYPSQ3700-55-84 21:38:00Negative (05/02/15 4:38 PM) [facility] PLIXW5003[facility]56-47 21:38:00Negative *NA*(05/02/15 4:38 PM) [facility] QQVVO1823-99-65 21:38:00Yellow *NA*(05/02/15 4:38 PM) [facility] FACJK5392-07-05 21:38:00 Test Item Value Reference Range Interpretation Comments UA pH (test code = UA pH) 6.0 1 5.0-8.0 [facility] LCYCM0719-87-96 21:38:00Slight Cloudy (05/02/15 4:38 PM) [facility] ILPDE1959-53-32 21:38:00Negative (05/02/15 4:38 PM) [facility] OSDHG2362-82-29 21:38:00 Test Item Value Reference Range Interpretation Comments UA Spec Grav (test code = UA Spec 1.006 1 Grav) [facility] YQETX3353-19-17 09:28:0034[facility]CHE[facility] PANEL 2015-03-24 09:28:000.6[facility]CHE[facility] NXMLS5613-20-69 09:28:0095[facility] FBHJG9335-68-94 09:28:006[facility] VJNPB2271-20-58 09:28:001.1[facility]CHE[facility] RQRHE9409-32-79 09:28:003.1[facility] YCXONVRIKF7165-94-74 09:28:0011.3[facility] EjuvfhkZHWHETHNCA1009-64-28 09:28:00 27.1[facility] FmkznxnIFMVHTEGEA4330-99-67 09:28:005.9[facility]annHEMATOLOGY 2015-03-24 09:28:003.3[facility] IpnfoonJZXJTIPJOZ3822-90-04 09:28:000.7[facility] KxvzjeqZPCGMBCZQO4848-11-79 09:28:0055.0[facility] HnmsofdFPAIJZRWQK7229-24-00 09:28:000.7[facility] VamfewfYYEVGBCUAC5657-51-31 09:28:001.6[facility] BYMGEUCUTY3738-71-09 09:28:000.4[facility] SjjfhwcSKXBLQXLTP0630-89-57 09:28:00 4.21[facility] VfstpvlLAVZDIZMIQ6348-71-19 09:28:005.9[facility]annHEMATOLOGY 2015-03-24 09:28:31745Wskhmpdu NoixoiiKLBQFCSBFO7603-12-11 09:28:0032.4[facility] OexrsahDAQFAEMREF2937-78-89 09:28:0014.2[facility] JaysacwTCVSJKSBRG2592-11-48 09:28:008.6[facility] LbyeqixXDSIGHCGXA6635-30-26 09:28:0037.2[facility] FQTTJVWUYP8258-94-05 09:28:0088.3[facility] MqpusfgCTJLDYHHVG8063-21-51 09:28:00 12.1[facility] MitdnrjDGLZVWJCOE8767-53-35 09:28:00 Test Item Value Reference Range Interpretation Comments MCH (test code = MCH) 28.6 pg 27.0-31.0 [facility] MCZDT0496-80-52 09:28:90267Twrakctg HermannCHEM PANEL 2015-03-24 09:28:22814Odokbthu HermannCHEM GXQEJ7610-37-60 09:28:000.7[facility]annCHE[facility] CPGBA1968-34-26 09:28:004[facility] VWSBT7331-98-57 09:28:003.2[facility]annCHE[facility] IMMOT4011-28-55 09:28:65661Awoccuig HermannCHEM ZQKOL8460-03-27 09:28:0091[facility]CHE[facility] RADPM0559-82-11 09:28:003.5 [facility] XHIHG4273-90-13 09:28:006.6[facility]annCHE[facility] PANEL 2015-03-24 09:28:01759Gjyccyvx HermannCHEM CTRST3482-84-65 09:28:009.1[facility]CHE[facility] AMXET0993-79-28 09:28:0027[facility]CHE[facility] FZTHI8178-85-71 09:28:0011.2[facility]CHE[facility] DYFGJ5097-26-26 09:28:0021[facility] FZUNL6376-92-12 18:14:00Negative (03/23/15 1:14 PM)[facility] XVONSKE9332-66-90 10:51:000.8[facility] AHLHKNZ2903-08-83 10:51:00 70[facility] JKWZQQB1082-26-32 10:51:001.1[facility]annCHE[facility] CFLQH9688-86-02 10:51:87048Ytvorbup HermannCHEM QMJVS3243-66-71 10:51:0027 [facility] SCNJT6260-32-77 10:51:009.2[facility]annCHEM PANEL 2015-03-23 10:51:01653Xgydbthg HermannCHEM WWIID1479-04-39 10:51:93447Jovumfwh HermannCHEM UHQQK7240-68-14 10:51:003.5[facility]annCHE[facility] ADTSG4662-44-43 10:51:000.7[facility]annCHEM SVARK4049-49-28 10:51:008[facility]annCHE[facility] IKPVY9762-07-77 10:51:42422Oiibczrl HermannCHEM RFHRH1214-99-95 10:51:0010.5 [facility] DcsqtvaRQPDWTSRMG8355-25-23 10:51:001.3[facility]annHEMATOLOGY 2015-03-23 10:51:003.4[facility] DddnkllCJGZJAFIFM0112-68-05 10:51:000.6[facility] XtjovopKYFCBMMNLA9389-37-24 10:51:004.0[facility] HcrqvbrIAZRNTYEVZ6689-30-12 10:51:000.2[facility] AgscxtoYDBMZRDUNV0002-47-70 10:51:000.6[facility] SGXKWFIRQE4552-81-40 10:51:0011.0[facility] GtgqzbbSZMCUQYRUQ8876-86-58 10:51:00 23.6[facility] DecxmrdQFVQOVTCNZ2654-50-73 10:51:0060.8[facility]annHEMATOLOGY 2015-03-23 10:51:008.3[facility] RuqmxhvNKKAGUNFDS6387-01-40 10:51:76911Lwvhchjb MiazlbjIHWLAUJYYP3397-00-66 10:51:0014.6[facility] PbijmgqSGSDFFUFCL9404-51-27 10:51:0088.0[facility] MggiaqiEKSIOUTYZX9627-14-53 10:51:00 Test Item Value Reference Range Interpretation Comments MCH (test code = MCH) 28.7 pg 27.0-31.0 [facility] YsmjuwiTRUQOZGIUA0148-83-01 10:51:0034.7[facility]annHEMATOLOGY 2015-03-23 10:51:0032.6[facility] AqpaowgMPUWDXLTVK6483-19-31 10:51:0011.3[facility] SsczejxRWJROHAOIQ9363-95-07 10:51:003.94[facility] DirolgfLKEYMKXUVD0073-66-64 10:51:005.6[facility]annCARDIAC LSTWSBU7997-94-81 10:19:001.6[facility] CARDIAC JTBMTTK8341-51-81 10:19:001.0[facility]AC HPMOAAM8615-83-50 10:19:0064[facility]annCHEM BHRVZ5761-25-98 10:19:75861Hhpwcwhe HermannCHEM IIHPP4424-48-33 10:19:008.7[facility]annCHEM ZUCHV2924-95-29 10:19:76414 [facility]annCHE[facility] NRIAR7534-18-34 10:19:003.9[facility]annCHEM PANEL 2015-03-22 10:19:34149Wgsdzuvn HermannCHEM BMGRY7385-88-98 10:19:0027[facility]annCHE[facility] MTPKP7180-28-31 10:19:0094[facility]annCHEM WXOQZ7714-85-62 10:19:008[facility]annCHE[facility] XLPTL8061-67-53 10:19:000.6[facility]annCHE[facility] AZDRF4830-89-65 10:19:008.9[facility] JgurzktMRYYBXFQDA9327-38-16 10:19:000.2 [facility] EvnzphiCGNGWUBXHL7592-21-62 10:19:000.5[facility]annHEMATOLOGY 2015-03-22 10:19:000.9[facility] ZuyofyvWKUWDLLAZH3188-11-81 10:19:0011.2[facility] EtgjypoZLDRFJJGNL7728-66-63 10:19:002.1[facility] LnqbkkgWVVJMFJEEV6367-49-13 10:19:003.7[facility] UjfvhvcVWHPCFBMUB1733-81-98 10:19:001.6[facility] CTPXHUAGIO3231-74-72 10:19:0048.6[facility] NwsgzsqNOGCBWYJDI6555-44-87 10:19:00 35.6[facility] OlapyjvYIXYVXTBHQ3589-97-38 10:19:008.9[facility]annHEMATOLOGY 2015-03-22 10:19:004.4[facility] XireoerPQBKRYYMTX8757-34-15 10:19:00 Test Item Value Reference Range Interpretation Comments MCH (test code = MCH) 29.9 pg 27.0-31.0 [facility] SzqwewaQKXVXJPJWJ5467-90-84 10:19:0086.5[facility]annHEMATOLOGY 2015-03-22 10:19:0034.6[facility] MtmsthnXFVXIIHNYZ3959-20-72 10:19:0011.7[facility] CutbjqmXBKCQLQOCJ6735-52-44 10:19:003.92[facility] JdleulvTJAPTHWSFY8273-17-25 10:19:0033.9[facility] JdzzojiUHKZVAHUZG2447-19-63 10:19:0014.6[facility] MRMSBTRXLD6906-67-67 10:19:28113Gempveps HermannCARDIAC XZSSCVN5580-73-18 03:22:001.6[facility]annCARDIAC KEZPFDP9509-30-41 03:22:0077[facility] CARDIAC DIGGXTK2294-52-50 03:22:001.2[facility]annCHEM OYFIY3455-17-91 02:44:001.4[facility]annCARDIAC PDRFJZQ0345-22-10 21:13:00<0.02[facility]annCHEM YBVCH9042-64-90 21:13:003.3[facility]annCHEM OIRON6650-48-05 21:13:001.1[facility]annCHE[facility] PFFKS9191-22-26 21:13:0016[facility]annCHE[facility] UOAAF7808-68-19 21:13:40240Rfpvonqn HermannCHEM XKQGY6752-97-16 21:13:0025 [facility]CHE[facility] EQTSR8275-33-55 21:13:000.5[facility]annCHEM PANEL 2015-03-21 21:13:0032[facility]annCHEM VPNSC7532-40-32 21:13:003.7[facility]annCHEM MJHVR4431-95-06 21:13:007.0[facility] BimobneQLOFMOZELR4848-32-54 21:13:000.0[facility] BraaoicFQHUVUHEFK5907-12-89 21:13:001.04[facility] QTBNSECBLK9839-56-41 21:13:00 Test Item Value Reference Range Interpretation Comments PT (test code = PT) 13.6 s 12.0-14.7 [facility] RxuxtxlULNBLCKYTP7623-87-33 21:13:00 Test Item Value Reference Range Interpretation Comments PTT (test code = PTT) 35.2 s 22.9-35.8 [facility] YBNWMGU3764-94-98 21:10:006[facility]AC MERDAKV8151-95-59 21:02:00<0.02[facility]annCARDIAC FBZYTUV2120-67-25 21:02:0031[facility]CARD[facility]AC FZXYPYP3351-25-80 21:02:000.8[facility] CARDIAC RCOIZJI8846-95-33 21:02:0070[facility]annCARD[facility]AC ECPHEST6041-09-27 21:02:001.1[facility]annCHEM MOLBD0206-10-17 21:02:59605Eitaxtot HermannCHEM KIZAD9266-48-90 21:02:0099[facility]annCHE[facility] PZENK3356-19-57 21:02:000.6 [facility]CHE[facility] UVOJC2687-08-89 21:02:0011[facility]annCHEM PANEL 2015-03-11 21:02:009.4[facility]annCHE[facility] MHMPG0512-26-16 21:02:003.1[facility]annCHE[facility] ANRNM0084-67-64 21:02:001.1[facility]annCHE[facility] BGOYC1013-65-98 21:02:0073[facility]annCHE[facility] AUQJQ6434-23-47 21:02:008[facility]annCHE[facility] WTWIZ9827-61-22 21:02:000.7[facility]annCHEM VBYLL9420-50-90 21:02:33146 [facility]CHE[facility] GUOLW2657-13-09 21:02:003.4[facility]annCHEM PANEL 2015-03-11 21:02:0028[facility]annCHEM FNEOQ7685-97-54 21:02:85628Zftjbzwa HermannCHEM BTBEM2551-68-57 21:02:008.9[facility]annCHEM XFZZR0680-80-88 21:02:006.5[facility]annCHEM LRRWO4720-58-57 21:02:003.4[facility]annCHEM QDTDH2811-22-83 21:02:0030[facility]annCHEM ZCXJQ5453-02-28 21:02:0021 [facility] YbalygwQUADKZGIEK2399-98-82 21:02:0015.1[facility]annHEMATOLOGY 2015-03-11 21:02:0033.1[facility] AynfcwxMQXHOLMRLK6628-22-37 21:02:80478Ytxlczok JuaqsoaKWBJALXMVJ3611-16-11 21:02:008.1[facility] VacttcwXUAMMGPKLJ5264-08-45 21:02:0034.6[facility] HhawiheZSDTMPQOQT5229-85-17 21:02:0011.5[facility] JRPQDVMIQQ4512-22-33 21:02:00 Test Item Value Reference Range Interpretation Comments MCH (test code = MCH) 28.8 pg 27.0-31.0 [facility] SheuzhkOJDJRAZDHB6415-40-65 21:02:0086.9[facility]annHEMATOLOGY 2015-03-11 21:02:003.98[facility] UhoetitXQIPGNWNKR9760-54-15 21:02:006.5[facility] YzcghleGRNIJZINDV8846-86-32 21:02:00 Test Item Value Reference Range Interpretation Comments PTT (test code = PTT) 32.8 s 22.9-35.8 [facility] ElbooygBJIOBIILJT1929-07-86 21:02:00 Test Item Value Reference Range Interpretation Comments PT (test code = PT) 13.3 s 12.0-14.7 [facility] AocywbvSAXERDSOQX2698-66-27 21:02:001.01[facility]annHEMATOLOGY 2015-03-11 21:02:000.0[facility] XnkrrmlYPHAPXNRMJ7120-81-86 21:02:003.7[facility] TvxnrzvVVMXXWSOKQ9093-35-53 21:02:000.2[facility] ZezkumyIYYOIWBTUS5788-97-06 21:02:000.6[facility] ImqsowbOGEIQSDQAB3651-68-23 21:02:001.9[facility] BDTRKSCPNC9272-00-01 21:02:0056.9[facility] CsxqzrfFYGXTCAENQ0476-08-04 21:02:00 2.7[facility] LxyjdjcQXNUNMGLPX6729-12-45 21:02:000.4[facility]annHEMATOLOGY 2015-03-11 21:02:009.9[facility] MbxsabfAEVJVOTJMA3723-14-81 21:02:0030.1[facility]annCARDIAC PIPJQTB2137-93-85 09:33:00<0.02[facility]annCARDIAC ENZYMES 2015-03-05 06:16:00<0.02[facility]annCHEM YGVJK4665-49-02 06:16:001.1 [facility]annCHE[facility] IGGRX9596-01-04 06:16:003.5[facility]annCHEM PANEL 2015-03-05 06:16:000.5[facility]annCHEM FCWHW1928-39-85 06:16:000.1[facility]annCHEM ESQOD5455-78-26 06:16:0025[facility]annCHEM MXJUI4152-37-04 06:16:0021[facility]annCHEM XFFFM0897-69-62 06:16:003.7[facility]annCHEM UKLZL4963-80-32 06:16:91565Zrcqeeks HermannCHEM RRGCU0418-10-25 06:16:000.6 [facility]annCHEM VVHXF8783-96-26 06:16:007.2[facility]annCHEM PANEL 2015-03-05 06:16:40197Cycptkiz SpbtwujNGVLIGKMFKQU6170-53-34 06:16:0012.6 [facility] OonvcikGFAHLAUFXWFI9590-38-43 06:16:0078[facility] HermannELECTROLYTES 2015-03-05 06:16:009.6[facility] TjsenhtCEOIXZSJXWPO6998-82-18 06:16:0029[facility] DqfbqfvQQISLBGBIGKX3661-65-42 06:16:003.6[facility] LbhvejoQUTBMRRSHPWT2280-87-47 06:16:31496Ibutncyw YnfiuljJBDSRWTYXCTM4472-84-87 06:16:33615Ajxlnnll [facility] QHKSCLFHLAGB4293-77-67 06:16:000.8[facility] RhqzgmePQZLYLSQHNCK8272-04-55 06:16:009[facility] SnpnfmuSDJACAVQASVQ5608-68-34 06:16:0096[facility] RYGCHHNVFD4869-68-02 06:16:002.6[facility] WpykxrqLPPGFFQCMK6847-44-06 06:16:000.9 [facility] AqwjtlfQJEYPKQCOI9475-84-48 06:16:000.7[facility]annHEMATOLOGY 2015-03-05 06:16:001.7[facility] PyfngodCAHIAEAPIW5418-42-33 06:16:006.7[facility] MxgizobXOBRAANQYV6990-27-16 06:16:0025.0[facility] XnalhhaPWFGSNIRXC3648-07-28 06:16:0064.3[facility] DrpiyrsJIAPVOCOZC0710-49-83 06:16:008.3[facility] MJVUSRPIHZ1133-82-27 06:16:000.2[facility] OyuhqtfPHDDFWVJKA5161-24-46 06:16:000.1 [facility] VevmrekTVTPZTPYJX8756-24-91 06:16:0087.7[facility]annHEMATOLOGY 2015-03-05 06:16:0039.7[facility] WembdaqEWYLZYVYLC7910-49-31 06:16:008.0[facility] DiobwwkITBBEUMGCQ8961-75-41 06:16:80679Eglvkkwj CsplvriFDUWPCNXPY5341-84-92 06:16:0014.6[facility] IacjwabWMXGOLBRBU0654-86-84 06:16:0032.4[facility] KCOMNFTSJM4571-98-40 06:16:00 Test Item Value Reference Range Interpretation Comments MCH (test code = MCH) 28.4 pg 27.0-31.0 [facility] FsfquzgTANEMLFXYG6714-45-20 06:16:0010.5[facility]annHEMATOLOGY 2015-03-05 06:16:004.53[facility] NpkpnemPYDSFHWTMW8346-71-42 06:16:0012.9[facility]annCHEM NEOWQ8358-30-96 09:16:002.0[facility]annCHEM CINBN7075-78-07 09:16:003.6[facility]annCHEM JHNUF6822-80-97 09:16:69566Cvnyjpgg HermannCHEM AFEDX8310-19-26 09:16:0017[facility]annCHEM CCARV4710-32-36 09:16:003.3 [facility]annCHE[facility] RLFUS2086-11-55 09:16:001.1[facility]annCHEM PANEL 2015-02-25 09:16:006.3[facility]annCHEM CSHUN2139-58-67 09:16:0021[facility]annCHEM QCKRG2524-25-95 09:16:003.0[facility]annCHEM TAMQI9227-41-03 09:16:000.5[facility]annCHEM ZMLSK4195-83-20 09:16:55762Tfocyiwf HermannCHEM JATWU7631-07-73 09:16:0011[facility]annCHEM SCRGH6923-45-88 09:16:009.1 [facility]CHE[facility] ZSTMO1991-98-92 09:16:0099[facility]annCHEM PANEL 2015-02-25 09:16:008[facility]annCHEM XLKOC0118-64-94 09:16:59717Kdamleop HermannCHEM SYJSR9884-57-52 09:16:000.7[facility]annCHEM YLQEG5524-93-12 09:16:008.9[facility]annCHEM HNLYM8452-24-07 09:16:17137Howjijgg HermannCHEM KORTU8716-13-61 09:16:0028[facility]annCHEM OWPDP6422-00-24 09:16:003.9 [facility] JrekvskAFYRSTMILK2985-46-49 09:16:18783Xndlmiuu HermannHEMATOLOGY 2015-02-25 09:16:008.8[facility] WlutwntOTTIFLZKTU4089-89-64 09:16:0014.9[facility] KpusillGPWELSZVQF4639-51-77 09:16:005.9[facility] ByvgwmzNSEDKSUJOR3674-78-62 09:16:0088.4[facility] NlqtkkuIXTUBKIZWW4531-85-44 09:16:0037.2[facility] NESKMAECQV6863-75-09 09:16:00 Test Item Value Reference Range Interpretation Comments MCH (test code = MCH) 28.6 pg 27.0-31.0 [facility] MpkzfdyRTBLOJHTRH5907-55-95 09:16:0032.4[facility]annHEMATOLOGY 2015-02-25 09:16:004.21[facility] YupkeczSAAVEMLESA6548-00-09 09:16:0012.0[facility] JrbnoawQTOXXDLVQN0241-06-57 09:16:0031.9[facility] TwuufxqILZPEBTBQS7234-73-15 09:16:000.8[facility] RszjybhUKRXNINXPR4035-98-97 09:16:003.1[facility] UMXPICYBDW0407-89-99 09:16:0011.6[facility] RgzxuqiPVUYFRAHIP5479-24-31 09:16:00 2.9[facility] CnzgxhiDKSKCCOPIG5211-01-23 09:16:0052.8[facility]annHEMATOLOGY 2015-02-25 09:16:000.7[facility] YktpnogDDKUAUWEPQ7674-41-87 09:16:001.9[facility] YsydszzCUFQTQUVGE4726-64-22 09:16:000.2[facility]annCARDIAC TGTNFXE2942-54-73 04:30:0074[facility]annCARDIAC WAWWYQR5872-69-24 04:30:001.2[facility] CARDIAC IPRCKCD9914-90-74 04:30:00<0.02[facility]annCARDIAC ENZYMES 2015-02-25 04:30:000.9[facility]annCARDIAC GVPFHPK9300-94-50 23:29:00<0.02 [facility]annCARD[facility]AC VDHLXDL5647-59-68 23:29:000.7[facility]annCARDIAC FETYGHB6141-56-58 23:29:0068[facility]annCARDIAC HBLMYKL6250-79-10 23:29:00 1.0[facility]annCARDIAC WRPYLHF0159-53-56 17:33:000.9[facility]annCARDIAC TYJGLCF6522-31-92 17:33:00<0.02[facility]annCARDIAC RKQUYFX9737-47-81 17:33:000.7[facility]annCARDIAC RXYBQAQ0633-39-33 17:33:0076[facility] CHEM ZLQUX9066-84-67 17:33:0090[facility] HermannCHEM XNYNZ4860-50-91 17:33:003.1 [facility]annCHEM RGFOT5217-06-58 17:33:39052Jlxllglo HermannCHEM PANEL 2015-02-24 17:33:000.3[facility] HermannCHEM ZLUYV2187-13-75 17:33:001.1[facility]annCHEM GJPTF1183-95-85 17:33:007.3[facility] HermannCHEM KQBJQ8200-32-04 17:33:0012[facility]annCHEM SLXSE4499-64-53 17:33:000.8[facility]annCHEM BDMIF0432-15-22 17:33:89863Ndftopzl HermannCHEM SXRBS4657-96-74 17:33:0088 [facility]annCHEM BJGWS7245-69-70 17:33:003.3[facility]annCHEM PANEL 2015-02-24 17:33:68590Xfhhcftt HermannCHEM FTLNK6493-18-54 17:33:0010[facility]annCHEM VCQOZ9210-99-01 17:33:0015[facility]annCHEM RPPFV7076-79-33 17:33:0022[facility]annCHEM YIDZA9532-85-75 17:33:008.9[facility]annCHEM YQJDY1483-46-49 17:33:0030[facility]annCHEM YIDKR5005-39-70 17:33:006.6 [facility]annCHEM JAXGX0393-61-30 17:33:003.5[facility]annHEMATOLOGY 2015-02-24 17:33:0055.9[facility] IyqafnaEMSNYAMMWF2058-07-99 17:33:0028.7[facility] PpekcflXCFTFXBCTP8059-24-81 17:33:003.7[facility] ZzwrbrxPUTIGJCBRV1132-96-99 17:33:000.7[facility] OgtqbndVLQPZZRXDH0276-34-75 17:33:001.9[facility] NDXFWWIODJ5238-71-69 17:33:002.2[facility] YnbzezsVDEORCOQLW4195-09-23 17:33:00 12.5[facility] CkmvumoEAGCIZOOBC9273-37-49 17:33:000.0[facility]annHEMATOLOGY 2015-02-24 17:33:000.1[facility] AwcvvowEQRIRVRDAV3183-35-01 17:33:000.8[facility] IytnqenBMJHKPCTRU8489-77-76 17:33:008.8[facility] VqpalhoZENQPFIGMS4377-09-44 17:33:00 Test Item Value Reference Range Interpretation Comments MCH (test code = MCH) 28.1 pg 27.0-31.0 [facility] ThyaadoIOEQELUKCP8687-19-06 17:33:0014.8[facility] HermannHEMATOLOGY 2015-02-24 17:33:0032.2[facility] AomuttsUVPJGKVLCE7806-04-23 17:33:45862Buqdoqsf RurpdbsAWKMHSXWDB1604-78-94 17:33:0011.4[facility] PmdflmqHLIIESLLIP7423-02-59 17:33:004.04[facility] FqwjvvcQTJURTDAEG1289-57-18 17:33:006.5[facility] SCQJXLCCXI7564-87-89 17:33:0035.3[facility] BkcxezvEFMKRDNDPQ8527-63-27 17:33:00 87.2[facility]annCARDIAC XVMQAVL0082-11-58 09:54:006[facility]annCARDIAC ZBXLRES3954-09-63 09:54:00<0.02[facility]annCARDIAC QTDMSHU2691-74-83 09:54:001.0[facility]annCARDIAC WDRUQQG7313-15-77 09:54:0077[facility] CHEM QNCDC3611-22-29 09:54:001.8[facility] HermannCHEM ZRZHF1745-19-49 09:54:26062 [facility]annCHEM TZBLE4413-29-37 09:54:80686Sdrlwfte HermannCHEM PANEL 2015-02-17 09:54:003.8[facility] HermannCHEM SKSPO9355-40-65 09:54:42213Kpwhyqrd HermannCHEM MMJPA3929-91-94 09:54:008.6[facility]annCHEM SSWJU1475-39-85 09:54:0011.8[facility] HermannCHEM XAVEU1709-22-21 09:54:0025[facility]annCHEM JBDNG0469-50-96 09:54:000.6[facility] HermannCHEM GCRYT9323-40-79 09:54:006 [facility]annCHEM XCIWX6927-30-96 09:54:0072[facility]annHEMATOLOGY 2015-02-17 09:54:0011.5[facility] EeuzkugVWMCHB1473-55-69 09:54:0051[facility] LfuohevYOBUWU1273-64-91 09:54:0017[facility] NwucxjvHJQAOV0380-28-89 09:54:0096 [facility] XnbobunDSCTGU9049-70-77 09:54:13930Zvzbbzxh OplqwyaDIBOQI6237-49-41 09:54:0084[facility] VmkwnqcRKCSLO4572-90-12 09:54:003.22[facility] HermannSPECIAL HIDNIJAGQ2357-08-94 09:54:005.8[facility] HermannCARDIAC UTGYMJN0232-70-13 04:20:00<0.02[facility] HermannCARDIAC TVOUSUJ3184-91-08 04:20:0092[facility] HermannCARDIAC YEWXDCB6302-31-65 04:20:001.2[facility] HermannCARDIAC ENZYMES 2015-02-16 22:59:001.2[facility]annCARDIAC UYQDJQG0135-44-24 22:59:001.3 [facility]annCARDIAC BYIEXOH3905-61-17 22:59:0093[facility]annCARDIAC QUGSUFL3595-49-82 22:59:00<0.02[facility]annCARDIAC PGGWERV2336-82-05 22:59:004[facility] HermannCHEM BGDXV4376-70-94 22:59:37949Gvjrtcxm HermannCHEM QPYCC5886-66-95 22:59:001.0[facility]annCHEM MUXUF2252-97-96 22:59:003.6 [facility]annCHEM XCDUD3697-51-79 22:59:000.4[facility] HermannCHEM PANEL 2015-02-16 22:59:000.1[facility] HermannCHEM MKCIN8008-57-79 22:59:000.5[facility] HermannCHEM UISFW9330-81-60 22:59:007.3[facility] HermannCHEM YALOZ2494-15-98 22:59:71001Zifiypyp HermannCHEM HWWEW6947-62-47 22:59:0015[facility] HermannCHEM DMAUD9099-90-09 22:59:0021[facility] HermannCHEM XHMSL0777-26-62 22:59:003.7 [facility]annCHEM KTOAB8583-04-02 22:59:003.1[facility] HermannCHEM PANEL 2015-02-16 22:59:001.9[facility] HermannCHEM BEECS5612-52-12 22:59:0090[facility] HermannCHEM MGILD4057-22-38 22:59:009.0[facility]annCHEM XVVFW8817-18-28 22:59:0028[facility] HermannCHEM IYTRT4178-21-66 22:59:70968Nsswtnha HermannCHEM VVQRZ7695-96-84 22:59:000.8[facility] HermannCHEM LEXSK4331-10-17 22:59:0011 [facility]annCHEM LUOIF2057-23-80 22:59:003.5[facility] HermannCHEM PANEL 2015-02-16 22:59:79920Ragozmcu HermannCHEM RRHPX4795-61-03 22:59:0076[facility]annCHEM BNLFB4261-13-29 22:59:007.5[facility] EisikxrKLSJUGETYK2049-49-29 22:59:003.3[facility] VjaejrxPVUISVFPHX3694-42-30 22:59:009.1[facility] LEFWAQKAKM0221-66-81 22:59:0028.9[facility] BqifolqYWVBHYCVZE6682-55-44 22:59:00 58.3[facility] FkpzomfZFJXXCHYZN7928-81-23 22:59:003.8[facility] HermannHEMATOLOGY 2015-02-16 22:59:000.4[facility] HmbxoqyULMGSXFGJN3138-53-37 22:59:000.6[facility] QzgaybyTUFMBWENVQ1449-12-85 22:59:001.9[facility] FffjoxrZJVKYUQRYZ4519-76-44 22:59:000.2[facility] XwuvlulDJGKMOBGTG8562-05-89 22:59:000.0[facility] BWYYDZSMYT7524-86-91 22:59:00 Test Item Value Reference Range Interpretation Comments PTT (test code = PTT) 36.0 s 22.9-35.8 [facility] MfpfxzhDFNJMXPLNW2765-38-06 22:59:00 Test Item Value Reference Range Interpretation Comments PT (test code = PT) 12.9 s 12.0-14.7 [facility] AcmmtgyBWCPOFVTWQ0495-89-44 22:59:000.97[facility] HermannHEMATOLOGY 2015-02-16 22:59:07447Qfspciks MthhzcvEIUUQSIBNT1368-97-79 22:59:0014.7[facility] VsurczxCPEFWXQOJB6014-99-29 22:59:008.7[facility] DgbjphkIGTSEBOXUB6470-17-91 22:59:0032.6[facility] CnsjnpbMVXIQJHWHT2303-15-50 22:59:0039.5[facility] CVVIKVRDTB0130-44-50 22:59:0087.3[facility] BbspuejLECLIOFVCS1598-10-11 22:59:00 Test Item Value Reference Range Interpretation Comments MCH (test code = MCH) 28.4 pg 27.0-31.0 [facility] ZxikumfQWFEXYLFTL9884-89-71 22:59:004.52[facility] HermannHEMATOLOGY 2015-02-16 22:59:0012.9[facility] NmfpbvzEYHMVFDKJX3004-44-81 22:59:006.5[facility] MrqbrtxUOAKEEIBP8621-72-00 22:59:0046[facility] HermannCARDIAC EKPGUNU5188-15-71 21:17:0015[facility] HermannCARDIAC VRLNJJB9559-64-84 21:17:00<0.02[facility] HermannCARDIAC OLREDDF8424-85-51 21:17:0080[facility]annCARDIAC ENZYMES 2013-12-22 21:17:00<0.5[facility] HermannCARDIAC FAGNLYB3520-67-10 21:17:00 <0.6[facility] HermannCHEM DATCF1644-85-09 21:17:42479Symhlpda HermannCHEM YVJXX9830-20-25 21:17:003.6[facility] HermannCHEM CHBTH6536-09-51 21:17:0017 [facility] HermannCHEM DQLEX4857-26-05 21:17:001.1[facility] HermannCHEM PANEL 2013-12-22 21:17:35346Lsoiijjf HermannCHEM ESZWI3679-23-81 21:17:0034[facility] HermannCHEM IZRBB5528-37-50 21:17:003.9[facility] HermannCHEM XJFEB2320-14-18 21:17:0089[facility] HermannCHEM XJBTK1217-53-01 21:17:0022[facility] HermannCHEM TUUOI1378-68-06 21:17:000.6[facility] HermannCHEM XIGKA6323-28-87 21:17:005.5 [facility]annCHEM KWAUC7601-41-78 21:17:000.6[facility] HermannCHEM PANEL 2013-12-22 21:17:0010[facility] HermannCHEM LBBDH7943-98-83 21:17:003.5[facility] HermannCHEM NVAGP9013-72-00 21:17:79815Bzvutruj HermannCHEM JMNFI4784-04-66 21:17:17399Fzndvtcj HermannCHEM BTDKP9095-67-57 21:17:0029[facility] HermannCHEM SVYUR2037-52-55 21:17:007.5[facility] HermannCHEM TXBTB0846-91-53 21:17:009.2 [facility]annDRUG JYOXVP5348-78-75 21:17:00Negative *NA*(12/22/13 4:17 PM) [facility]DR[facility] SXGNYR2920-35-47 21:17:00Negative *NA*(12/22/13 4:17 PM) [facility]DR[facility] BEKBKD7756-04-73 21:17:00See Note 4*NA*(12/22/13 4:17 PM) [facility]DR[facility] QEKOPB2842-18-04 21:17:00Negative *NA*(12/22/13 4:17 PM) [facility]DR[facility] OIYUYB8668-43-83 21:17:00Negative *NA*(12/22/13 4:17 PM) [facility]DR[facility] WTYDQF8895-79-57 21:17:00Negative *NA*(12/22/13 4:17 PM) [facility]DR[facility] TPLRUT6745-04-94 21:17:00Negative *NA*(12/22/13 4:17 PM) [facility]annDR[facility] GDZWCJ0114-90-91 21:17:00Negative *NA*(12/22/13 4:17 PM) [facility] BkvanktTQXNFMHBLD4281-62-46 21:17:00 Test Item Value Reference Range Interpretation Comments PTT (test code = PTT) 35.2 s 22.9-35.8 [facility] ZhrskbtCLIPYRASKW0138-63-92 21:17:00 Test Item Value Reference Range Interpretation Comments PT (test code = PT) 12.2 s 12.0-14.7 [facility] RatrgggHZWZLVLAEO0783-84-71 21:17:000.91[facility] HermannHEMATOLOGY 2013-12-22 21:17:008.4[facility] WeseekqGAIKJVUGQW0882-00-63 21:17:00 Test Item Value Reference Range Interpretation Comments MCH (test code = MCH) 29.2 pg 27.0-31.0 [facility] JvzwfoiJUVRGPGLEH4403-58-55 21:17:0033.4[facility] HermannHEMATOLOGY 2013-12-22 21:17:0014.5[facility] DnmqwvcYTNIAMIUQI6484-65-88 21:17:46048Ptixntyd PktfyckNQEMRDABQW0970-88-70 21:17:0041.6[facility] MoxvksmAHEUTNCHSU8118-13-07 21:17:0087.5[facility] GuqwqayWBKDXJSLKD5001-91-63 21:17:004.76[facility] VUZAYMSVYT0349-52-28 21:17:0013.9[facility] QagnaywBUXPBOKKVV7142-31-40 21:17:00 8.5[facility] XfnmiahEMDBBOYWAB5051-70-67 21:17:000.2[facility] HermannHEMATOLOGY 2013-12-22 21:17:000.0[facility] LbddporLQVJBGRFYJ6901-25-11 21:17:0066.1[facility] VkcmzdqZUFSHTUECG8341-30-53 21:17:006.1[facility] NonwgdiYVNLDVBAMF7880-89-39 21:17:0025.0[facility] GypxyqlGGFNZWPQZL3204-31-81 21:17:002.4[facility] MQGPKHYTEJ4795-00-84 21:17:000.4[facility] EzcxkkuAFGMRNFKZZ9882-10-12 21:17:002.1 [facility] VoebmmwFNRRVGZROK9441-55-90 21:17:000.5[facility] HermannHEMATOLOGY 2013-12-22 21:17:005.6[facility] HermannURINE AND XSBKM4825-53-00 21:17:00Trace *ABN*(12/22/13 4:17 PM)[facility] IMWSL2134-82-46 21:17:00Negative *NA*(12/22/13 4:17 PM)[facility] YOHOU2196-92-16 21:17:000.2 [facility] FBEZD7130-11-49 21:17:00Small *ABN*(12/22/13 4:17 PM) [facility] HYOTL3815-24-36 21:17:00Negative *NA*(12/22/13 4:17 PM) [facility] NMPTQ2970-52-93 21:17:00Negative (12/22/13 4:17 PM) [facility] ARPLK7264-50-15 21:17:00Clear (12/22/13 4:17 PM) [facility] WZHRC8076-34-12 21:17:00Yellow *NA*(12/22/13 4:17 PM) [facility] FYPQP1722-74-87 21:17:00 Test Item Value Reference Range Interpretation Comments UA pH (test code = UA pH) 6.0 1 5.0-8.0 [facility] HWQKO9857-17-53 21:17:00 Test Item Value Reference Range Interpretation Comments UA Spec Grav (test code = UA Spec 1.015 1 Grav) [facility] KKZZQ4442-63-95 21:17:00Negative (12/22/13 4:17 PM) [facility] WRHWE3419-38-80 21:17:00Negative (12/22/13 4:17 PM) [facility] TEFWY0303-17-95 15:55:312.7[facility]annCHEM PANEL 2013-12-17 15:55:312.2[facility] LygbvnbQOAEABDJEPVD3707-00-83 15:55:3110.5 [facility] RsxgpttCUFRVUGRRLGX9391-83-79 15:55:3191[facility]annELECTROLYTES 2013-12-17 15:55:3110[facility] FerampvOBOZVPRRZFOV1634-63-72 15:55:310.8[facility] RevogipTPTDTLYVQQOD4105-09-91 15:55:45288Ztynmuwm XcqfdqgJLLTDQPLMXVP7880-26-51 15:55:3187[facility] TazzyuqAFYENTRCCZSL9884-89-63 15:55:3130[facility] NMRVJIJNGXCI2991-69-93 15:55:314.5[facility] YftyhazWBSLEYKJEWUO4028-22-01 15:55:39585Ydyhdtnv ZjozagkHDOEOBKAFAID2417-37-51 15:55:318.6[facility] WKELXAZYKX0365-11-19 15:55:310.97[facility] UapmvqdVWGUNQZMKQ6955-79-45 15:55:31 Test Item Value Reference Range Interpretation Comments PTT (test code = PTT) 32.4 s 22.9-35.8 [facility] OvifizcPZRHWOCBMV3427-72-75 15:55:31 Test Item Value Reference Range Interpretation Comments PT (test code = PT) 12.8 s 12.0-14.7 [facility] XvkzbdcOJVHYGGQOX0457-00-27 15:55:3113.7[facility]annHEMATOLOGY 2013-12-17 15:55:314.88[facility] ZaoicuuJCSDDJYDOV6174-34-83 15:55:31 Test Item Value Reference Range Interpretation Comments MCH (test code = MCH) 28.1 pg 27.0-31.0 [facility] ApfylugKDPJFMSHAS5831-15-25 15:55:3142.1[facility]annHEMATOLOGY 2013-12-17 15:55:3186.4[facility] PzjnvxrRNSAVSODAS7155-13-67 15:55:3114.3[facility] JxpuvmtNAKTBNUMOQ2298-19-07 15:55:3132.5[facility] UvctwmeOALRVVIKNB7215-96-63 15:55:318.4[facility] DlapzphSBPVTKRECK1460-91-86 15:55:96988[place] AEWLXDAOMZ4856-81-19 15:55:317.2[facility] AavrtmnMNTTMUIFRR8415-76-79 15:55:31 10.7[facility] UalieycZHOKPQOUFD8014-66-77 15:55:3127.2[facility]annHEMATOLOGY 2013-12-17 15:55:311.9[facility] SupgftwTJVAJTTVLO1014-70-76 15:55:313.2[facility] HdallbsODFOMKAZLY2703-78-89 15:55:310.6[facility] JwqpmzmIIZZDBIWFC6028-09-44 15:55:314.2[facility] HdarrvlHMLCCWWXFF5125-48-96 15:55:310.2[facility] WNCEDJLWIQ1814-48-87 15:55:310.8[facility] MtcfhwwWTPAJLVWWP9313-59-63 15:55:31 58.3[facility] HermannPARATHYROID VFJNHAW0788-90-92 15:55:191.11[facility] PARATHYROID EHSYGIG3986-07-01 15:55:191.17[facility]annDRUG XNJGMX0725-35-22 03:45:57Negative *NA*(12/16/13 10:45 PM)[facility] KEPAQH1431-97-13 03:45:57Positive *ABN*(12/16/13 10:45 PM)[facility] PMKLXB5722-63-13 03:45:57Negative *NA*(12/16/13 10:45 PM)[facility] PVJBNU9449-24-98 03:45:57Negative *NA*(12/16/13 10:45 PM)[facility] YMZKJB5339-10-76 03:45:57Negative *NA*(12/16/13 10:45 PM)[facility] RCPCGA0536-13-83 03:45:57See Note 6(12/16/13 10:45 PM)[facility] AMVXLZ9918-41-39 03:45:57Negative *NA*(12/16/13 10:45 PM)[facility] NTFEOU2938-74-04 03:45:57Negative *NA*(12/16/13 10:45 PM)[facility]annCARDIAC SKESVAZ1036-14-52 03:45:0056[facility]CARDIAC TWPHOZM2341-42-59 03:45:00<0.010[facility]annCARDIAC JBXCVZE8711-62-79 03:45:00<0.02[facility]annCARDIAC ENZYMES 2013-12-17 03:45:0013[facility] WjsutlzZAOUPB1758-15-80 03:45:0018[facility] ZHZHGF1984-23-46 03:45:0088[facility] IgnjikwAVEMIQ4638-02-73 03:45:0088[facility] ElntqfxNUYCBC6174-40-22 03:45:003.08[facility] NgntsvnNUCFOM8353-50-95 03:45:44558 [facility] GnbfivxVVZPOM1111-43-72 03:45:0051[facility]annSPECIAL CHEMISTRY 2013-12-17 03:45:005.3[facility] HermannTHYROID XLAVA1048-20-46 03:45:000.870 [facility]ARD[facility]AC ZINBFWI1940-04-65 22:09:0042[facility]AC LYUZOEB5487-02-91 22:09:00<0.02[facility]annCHEM DQBJE4825-58-49 19:30:00 1.3[facility] BxrehfsWCZPGJWOOG9228-36-68 19:30:00 Test Item Value Reference Range Interpretation Comments PT (test code = PT) 11.8 s 12.0-14.7 [facility] IeemxzrYKEONZISUX5893-43-26 19:30:000.87[facility]annHEMATOLOGY 2013-12-16 19:30:00 Test Item Value Reference Range Interpretation Comments PTT (test code = PTT) 31.2 s 22.9-35.8 [facility] WdigatsCWTCGPFNIB5605-83-68 19:30:004.69[facility]annHEMATOLOGY 2013-12-16 19:30:006.6[facility] GfdcjriNHYSSYVOJF3188-63-27 19:30:0040.5[facility] VpvprjeGZTPCWCGYN5740-62-41 19:30:0086.4[facility] ExphdtzEGKRYAHASJ8622-12-17 19:30:0013.6[facility] TtuzcmfNYBQFOYUVF0481-91-02 19:30:00 Test Item Value Reference Range Interpretation Comments MCH (test code = MCH) 29.0 pg 27.0-31.0 [facility] KtygqjfPKUOVGFLNU3564-38-68 19:30:0033.6[facility]annHEMATOLOGY 2013-12-16 19:30:08118Zunwposr ByzadfbNYTRYAVNDY4629-64-95 19:30:0013.4[facility] EjnospzITORYUKQWZ6067-64-05 19:30:008.6[facility] BljdinsJFWFUTKHEN9458-81-64 19:30:000.8[facility] HfylkmzBVWSVIFYEG0307-58-75 19:30:000.0[facility] [place] WZHIICERYB6996-15-12 19:30:0012.1[facility] GykdlxgUGPYFUAFWC6947-38-44 19:30:00 3.8[facility] RpbfnyfEEJQJFWDAV8583-69-41 19:30:000.6[facility]annHEMATOLOGY 2013-12-16 19:30:003.9[facility] HcuxbasCCHPJRDRBN7442-50-40 19:30:000.3[facility] HgbacwxLAZLXFGNSR2581-34-06 19:30:001.6[facility] OvepunkVDNBVWGVUI3205-78-82 19:30:0025.0[facility] DbpveclGFTMVKYTBR3376-77-43 19:30:0058.5[facility] [place] CHEM QLSMK8774-18-96 17:43:2479[facility]annCHEM TEIYW4734-27-97 17:43:240.9 [facility]annCHEM SDLRD6303-26-86 17:43:09637Bejacavt HermannCHEM PANEL 2013-12-16 17:43:244.5[facility] HermannCHEM BQELC4196-52-88 17:43:33859Thsrdlpx HermannCHEM JLXRE2110-73-36 17:43:2478[facility]annCHEM EYBAR6206-55-39 17:43:2411[facility]annCHEM TVRDJ0670-79-26 17:43:241.0[facility]annCHEM NUZCG3417-18-05 17:43:2412[facility]annCHEM CNSBU9836-76-55 17:43:243.6 [facility]annCHEM AUIAB4139-85-99 17:43:2416.5[facility]annCHEM PANEL 2013-12-16 17:43:247.2[facility]annCHEM PNJBV6478-92-03 17:43:2419[facility]annCHEM UKZVQ2114-45-77 17:43:2423[facility]annCHEM CNXZJ3666-99-89 17:43:249.2[facility]annCHEM YTFPC5253-67-08 17:43:240.3[facility] HermannCHEM FHTSA6495-91-82 17:43:243.6[facility]annCHEM KUZSP6587-45-84 17:43:2487 [facility]annCHEM FPUJF2718-00-64 17:43:2431[facility]annCARDIAC ENZYMES 2013-12-16 17:43:0056[facility]annCARDIAC CQRGIAZ3395-23-14 17:43:00<0.02 [facility]annCARDIAC UJSOMVT8149-23-28 19:12:00<0.02[facility] [place] CARDIAC WOEQIWY0922-04-86 19:12:0049[facility]annCARDIAC TZSERPZ7075-62-05 19:12:00<0.010[facility] YdwhatfWHSTEZDQX2050-88-91 19:12:0036[facility] CARDIAC AKUBWWH1712-11-97 12:35:00<0.010[facility]annCARDIAC ENZYMES 2013-11-08 12:35:0054[facility]annCARDIAC RNDIDHU1096-86-78 12:35:00<0.02 [facility]annCARDIAC TKZGCIE2783-11-26 08:36:00<0.02[facility] WLAPWSLZLKUD6521-67-05 08:36:0011.4[facility] ShkscdbOOLGPTLRYKVF3955-59-89 08:36:0069[facility] BchktgeYOJKZBCMOMHZ6408-73-04 08:36:009.2[facility] [place] BBFJDJDKFIKS6619-34-38 08:36:0027[facility] HwvktusTJYXDMLINYEQ6119-12-64 08:36:00 105[facility] FmcxygnJXNYXSHAENUW9254-20-00 08:36:003.4[facility] QUHDUZRNSZSA3000-85-38 08:36:78675Ufjmaduq VlrrzvgHRECDYMSWGDY5235-93-55 08:36:0011[facility] QnmgjfbSOZAHGNYBRZA4914-21-91 08:36:0084[facility] TTTXCXZBSXZW1637-06-75 08:36:001.0[facility] SkvrgqtILDMMNAUEQ1477-94-76 08:36:00 0.1[facility] ZthhukdOARSFZZROX3673-51-47 08:36:000.2[facility]annHEMATOLOGY 2013-11-08 08:36:000.8[facility] CilauouDTCTNAWOHP4246-58-72 08:36:0072.5[facility] EjrdurpJGGMCSELPR6224-84-60 08:36:0017.0[facility] BxscswoZKDYLQVOCN5108-84-81 08:36:002.1[facility] IzblnzqARTRJUKTZJ1855-33-92 08:36:007.8[facility] SGUZNBBFRA9706-29-39 08:36:007.6[facility] YbcvzcpCOLQGHXOUW0610-31-82 08:36:000.6 [facility] AmlwufcNMCRKOTAKV8603-63-02 08:36:001.8[facility]annHEMATOLOGY 2013-11-08 08:36:008.7[facility] ZehhfcqJPLVWMFZXM2671-23-48 08:36:0014.0[facility] BrujxtaHGRFZGVIBP0175-73-26 08:36:81034Ubmveido BcbjneuIMOHXHXQKN6248-17-22 08:36:0033.9[facility] OefzfnzYBPCUHGNOI8039-44-53 08:36:004.65[facility] [place] BGOMLWTEFG7092-13-25 08:36:0010.6[facility] MtwebljZJVZNBTVIH9562-38-69 08:36:00 Test Item Value Reference Range Interpretation Comments MCH (test code = MCH) 29.3 pg 27.0-31.0 [facility] PtariagKYPRTWTCMT0695-43-68 08:36:0086.6[facility]annHEMATOLOGY 2013-11-08 08:36:0013.6[facility] KorjjnaWBTHDXVIHJ6047-73-42 08:36:0040.2[facility] [place]
[2020-12-15 16:07] LABS: Absolute Lymphocytes (CBC) 1.8 K/uL (0.7-4.9); Basophils % 0.7 % (0-1.3); Hematocrit 43.8 % (36.0-45.0); Lymphocytes % 32.4 % (15.3-44.8); MPV 8.1 fL (7.6-11.3); RBC Red Blood Cell Count 5.09 M/uL (3.86-4.86)
[2020-12-15 16:09] LABS: Protime INR 0.99
[2020-12-15] MEDS ORDERED: ONDANSETRON 4 MG/2 ML VIAL ONE (16:14)
[2020-12-15] MEDS ORDERED: MORPHINE 4 MG/ML SYR ONE (16:14)
[2020-12-15] MEDS ORDERED: predniSONE 20 MG TAB ONE (16:15)
[2020-12-15] MEDS ORDERED: ALBUTEROL 2.5 MG/3 ML NEB SOL ONE (16:15)
[2020-12-15 16:23] LABS: ALT/SGPT 17 U/L (12-78); AST/SGOT 18 U/L (15-37); Albumin 3.9 g/dL (3.4-5.0); Alkaline Phosphatase 90 U/L (45-117); BUN Blood Urea Nitrogen 9 mg/dL (7-18); Bicarbonate 26 mmol/L (21-32); Bilirubin Direct 0.1 mg/dL (0-0.2); Bilirubin Total 0.5 mg/dL (0.2-1.0); Glucose Level 101 mg/dL (74-106); Lipase 308 U/L (73-393); Magnesium 2.4 mg/dL (1.8-2.4); NT PRO-BNP 7 pg/mL (<125); Potassium 3.8 mmol/L (3.5-5.1); Protein, Total 7.9 g/dL (6.4-8.2); Sodium Level 139 mmol/L (136-145); Troponin (Emerg Dept Use Only) < 0.02 ng/mL (0.0-0.045)
--- NOTE | 2020-12-15 17:07 | RAD REPORT ---
EXAM DESCRIPTION: CT - Abdomen Pelvis W Contrast - 12/15/2020 4:54 pm CLINICAL HISTORY: Abdominal pain COMPARISON: September 2020 TECHNIQUE: Computed axial tomography of the abdomen pelvis was obtained. 100 cc Isovue-300 was admin istered intravenously. Oral contrast was not requested which limits evaluation of bowel. All CT scans are performed using dose optimization technique as appropriate and may include automated exposure control or mA/KV adjustment according to patient size. FINDINGS: The liver, spleen, pancreas, and adrenals appear unremarkable. Small nonobstructing bilateral renal calculi. There is no evidence of diverticulitis. Normal appendix. Postsurgical changes involve the spine. Marked osteoarthritis hips. Fibroid uterus. The stomach is moderately dilated. Atherosclerosis IMPRESSION: Moderate gastric dilatation
--- NOTE | 2020-12-15 17:07 | RAD REPORT ---
EXAM DESCRIPTION: Leila Single View12/15/2020 4:14 pm CLINICAL HISTORY: Chest pain COMPARISON: 2019 FINDINGS: The lungs appear clear of acute infiltrate. The heart is normal size IMPRESSION: No acute abnormalities displayed
--- NOTE | 2020-12-15 19:08 | EDPHYS ---
Physician Documentation [facility] Name: Winsome Yepez Age: 70 yrs Sex: Female : 1950 Arrival Date: 12/15/2020 Time: 15:15 Bed 6 Private MD: ED Physician Tien Guallpa HPI: 12/15 16:33 This 70 yrs old Black Female presents to ER via EMS with complaints of Abdominal Pain. pm1 16:33 The patient presents with abdominal pain in the upper abdomen. Onset: The pm1 symptoms/episode began/occurred 2 day(s) ago. Associated signs and symptoms: Pertinent positives: chest pain, shortness of breath, Pertinent negatives: nausea, vomiting, and diarrhea, dysuria, fever. The symptoms are described as achy. Modifying factors: the symptoms are aggravated by Patient ran out of her breathing treatments a few days ago. Patient with a history of asthma. Severity of pain: in the emergency department the pain is unchanged. The patient has not recently seen a physician. Historical: - Allergies: 15:17 PENICILLINS; ss - PMHx: 15:17 Asthma; High Cholesterol; Hypertension; Myocardial infarction; Sickle Cell; ss - Immunization history:: Adult Immunizations up to date. - Social history:: Smoking status: unknown. ROS: 16:33 Constitutional: Negative for fever, chills, and weight loss, Neck: Negative for injury, pm1 pain, and swelling. 16:33 Back: Negative for injury and pain, : Negative for injury, bleeding, discharge, and swelling, MS/Extremity: Negative for injury and deformity, Skin: Negative for injury, rash, and discoloration, Neuro: Negative for headache, weakness, numbness, tingling, and seizure. 16:33 Cardiovascular: Positive for chest pain, Negative for edema, palpitations. 16:33 Respiratory: Positive for cough, shortness of breath, wheezing. 16:33 Abdomen/GI: Positive for abdominal pain, Negative for nausea, vomiting, and diarrhea. Exam: 16:33 Constitutional: This is a well developed, well nourished patient who is awake, alert, pm1 and in no acute distress. Head/Face: Normocephalic, atraumatic. Chest/axilla: Normal chest wall appearance and motion. Nontender with no deformity. No lesions are appreciated. Cardiovascular: Regular rate and rhythm with a normal S1 and S2. No gallops, murmurs, or rubs. Normal PMI, no JVD. No pulse deficits. 16:33 Back: No spinal tenderness. No costovertebral tenderness. Full range of motion. Skin: Warm, dry with normal turgor. Normal color with no rashes, no lesions, and no evidence of cellulitis. MS/ Extremity: Pulses equal, no cyanosis. Neurovascular intact. Full, normal range of motion. 16:33 Respiratory: the patient does not display signs of respiratory distress, Breath sounds: wheezing: expiratory is heard diffusely. 16:33 Abdomen/GI: Inspection: abdomen appears normal, Palpation: soft, in all quadrants, mild abdominal tenderness, in the right upper quadrant. 16:33 Neuro: Exam negative for acute changes, Orientation: is normal, Mentation: is normal, Motor: is normal, moves all fours. Vital Signs: 15:21 Pulse 95; Resp 20; Pulse Ox 99% ; Weight 45.36 kg; Height 5 ft. 0 in. (152.40 cm); ss 15:23 Temp 98.1(TE); Pain 9/10; ss 17:54 BP 105 / 66; Pulse 61; Pulse Ox 96% on R/A; hb 18:37 BP 96 / 71; Pulse 60; Resp 15; Pulse Ox 99% on R/A; hb 15:21 Body Mass Index 19.53 (45.36 kg, 152.40 cm) ss MDM: 15:46 Patient medically screened. pm1 19:06 Data reviewed: vital signs. Data interpreted: Pulse oximetry: on room air is 99 %. pm1 Interpretation: normal. 19:06 Counseling: I had a detailed discussion with the patient and/or guardian regarding: the pm1 historical points, exam findings, and any diagnostic results supporting the discharge/admit diagnosis, lab results, radiology results, the need for outpatient follow up, to return to the emergency department if symptoms worsen or persist or if there are any questions or concerns that arise at home. 12/15 15:45 Order name: Basic Metabolic Panel; Complete Time: 16:32 pm1 12/15 15:45 Order name: CBC with Diff; Complete Time: 16:20 pm1 12/15 15:45 Order name: LFT's; Complete Time: 16:32 pm1 12/15 15:45 Order name: Magnesium; Complete Time: 16:32 pm1 12/15 15:45 Order name: NT PRO-BNP; Complete Time: 16:32 pm1 12/15 15:45 Order name: PT-INR; Complete Time: 16:20 pm1 12/15 15:45 Order name: Troponin (emerg Dept Use Only); Complete Time: 16:32 pm1 12/15 15:45 Order name: XRAY Chest (1 view); Complete Time: 17:14 pm1 12/15 15:45 Order name: Lipase; Complete Time: 16:32 pm1 12/15 15:45 Order name: CT Abd/Pelvis - IV Contrast Only; Complete Time: 17:14 pm1 12/15 15:45 Order name: EKG; Complete Time: 15:46 pm1 12/15 15:45 Order name: Cardiac monitoring; Complete Time: 15:54 pm1 12/15 15:45 Order name: EKG - Nurse/Tech; Complete Time: 15:54 pm1 12/15 15:45 Order name: IV Saline Lock; Complete Time: 15:54 pm1 12/15 15:45 Order name: Labs collected and sent; Complete Time: 15:54 pm1 12/15 15:45 Order name: O2 Per Protocol; Complete Time: 15:54 pm1 12/15 15:45 Order name: O2 Sat Monitoring; Complete Time: 15:54 pm1 Administered Medications: 16:09 Drug: Albuterol 2.5 mg Route: Inhalation; sv 16:09 Drug: predniSONE 60 mg Route: PO; sv 16:26 Follow up: Response: No adverse reaction sv 16:09 Drug: morphine 4 mg {Note: rass1.} Route: IVP; Site: right forearm; sv 16:30 Follow up: Response: No adverse reaction; Pain is decreased; RASS: Alert and Calm (0) sv 16:09 Drug: Zofran (Ondansetron) 4 mg Route: IVP; Site: right forearm; sv 16:30 Follow up: Response: No adverse reaction sv Disposition: 12/15/20 19:07 Discharged to Home. Impression: Unspecified asthma with (acute) exacerbation, Unspecified abdominal pain. - Condition is Stable. - Discharge Instructions: Abdominal Pain, Adult, Asthma, Adult, How to Use an Inhaler. - Prescriptions for Bentyl 20 mg Oral Tablet - take 1 tablet by ORAL route every 6 hours As needed; 20 tablet. Medrol (Kian) 4 mg Oral Tablets, Dose Pack - take 1 tablet by ORAL route as directed - follow package instructions; 1 packet. Albuterol Sulfate 90 mcg/actuation - inhale 1-2 puff by INHALATION route every 4-6 hours; 1 Inhaler. - Medication Reconciliation Form, Thank You Letter, Antibiotic Education, Prescription Opioid Use form. - Follow up: Emergency Department; When: As needed; Reason: Worsening of condition. Follow up: Private Physician; When: 2 - 3 days; Reason: Recheck today's complaints, Continuance of care, Re-evaluation by your physician. - Problem is new. - Symptoms have improved. Addendum: 12/17/2020 10:05 Co-signature as Attending Physician, Tien Guallpa MD I agree with the assessment and t w4 plan of care. Signatures: Dispatcher [employer] EDCoby Holloway RN RN Kaylan Kebede RN RN ss Pratik Weir, TELEGRAPH OPERATOR TELEGRAPH OPERATOR pm1 Tien Guallpa MD MD tw4 Melvin Ortiz RN RN mg2 Corrections: (The following items were deleted from the chart) 12/15 19:23 19:07 12/15/2020 19:07 Discharged to Home. Impression: Unspecified asthma with (acute) mg2 exacerbation; Unspecified abdominal pain. Condition is Stable. Forms are Medication Reconciliation Form, Thank You Letter, Antibiotic Education, Prescription Opioid Use. Follow up: Emergency Department; When: As needed; Reason: Worsening of condition. Follow up: Private Physician; When: 2 - 3 days; Reason: Recheck today's complaints, Continuance of care, Re-evaluation by your physician. Problem is new. Symptoms have improved. pm1
--- NOTE | 2020-12-15 19:08 | ER ---
Nurse's Notes [facility] Name: Winsome Yepez Age: 70 yrs Sex: Female : 1950 Arrival Date: 12/15/2020 Time: 15:15 Bed 6 Private MD: Diagnosis: Unspecified asthma with (acute) exacerbation;Unspecified abdominal pain Presentation: 12/15 15:15 Chief complaint: EMS states: abd pain, difficulty breathing and chest pain that began 2 ss days ago. Denies fever. Coronavirus screen: cough unrelated to allergies, difficulty breathing. Ebola Screen: Patient denies exposure to infectious person. Patient denies travel to an Ebola-affected area in the 21 days before illness onset. Initial Sepsis Screen: Does the patient meet any 2 criteria? No. Patient's initial sepsis screen is negative. Does the patient have a suspected source of infection? No. Patient's initial sepsis screen is negative. Risk Assessment: Do you want to hurt yourself or someone else? Patient reports no desire to harm self or others. Onset of symptoms was December 13, 2020. 15:15 Method Of Arrival: EMS: [facility] 15:15 Acuity: CYNTHIA 3 ss Historical: - Allergies: 15:17 PENICILLINS; ss - PMHx: 15:17 Asthma; High Cholesterol; Hypertension; Myocardial infarction; Sickle Cell; ss - Immunization history:: Adult Immunizations up to date. - Social history:: Smoking status: unknown. Screenin:50 Abuse screen: Denies threats or abuse. Denies injuries from another. Nutritional sv screening: No deficits noted. Tuberculosis screening: No symptoms or risk factors identified. Fall Risk None identified. Assessment: 15:19 Reassessment: Pt remains on EMS stretcher in hallway awaiting exam room to become ss available. 15:50 General: Appears in no apparent distress. uncomfortable, slender, Behavior is calm, sv cooperative, appropriate for age. Pain: Complains of pain in "everywhere" Pain currently is 9 out of 10 on a pain scale. Is continuous. Neuro: Level of Consciousness is awake, alert, obeys commands, Oriented to person, place, time, situation, Moves all extremities. Full function. Cardiovascular: Patient's skin is warm and dry. Respiratory: Reports shortness of breath Airway is patent Respiratory effort is even, unlabored, Respiratory pattern is regular, symmetrical. GI: Abdomen is round Reports upper abdominal pain. Derm: Skin is intact, Skin is normal. Musculoskeletal: Range of motion: intact in all extremities. 16:45 Reassessment: Patient appears in no apparent distress at this time. No changes from hb previously documented assessment. Patient and/or family updated on plan of care and expected duration. Pain level reassessed. Patient is alert, oriented x 3, equal unlabored respirations, skin warm/dry/pink. 17:45 Reassessment: Patient appears in no apparent distress at this time. No changes from hb previously documented assessment. Patient and/or family updated on plan of care and expected duration. Pain level reassessed. Patient is alert, oriented x 3, equal unlabored respirations, skin warm/dry/pink. 18:37 Reassessment: Patient appears in no apparent distress at this time. Patient and/or hb family updated on plan of care and expected duration. Pain level reassessed. Patient is alert, oriented x 3, equal unlabored respirations, skin warm/dry/pink. 19:22 Reassessment: Patient appears in no apparent distress at this time. mg2 19:22 GI: mg2 Vital Signs: 15:21 Pulse 95; Resp 20; Pulse Ox 99% ; Weight 45.36 kg; Height 5 ft. 0 in. (152.40 cm); ss 15:23 Temp 98.1(TE); Pain 9/10; ss 17:54 BP 105 / 66; Pulse 61; Pulse Ox 96% on R/A; hb 18:37 BP 96 / 71; Pulse 60; Resp 15; Pulse Ox 99% on R/A; hb 15:21 Body Mass Index 19.53 (45.36 kg, 152.40 cm) ED Course: 15:15 Patient arrived in ED. ss 15:16 Triage completed. ss 15:17 Arm band placed on right wrist. ss 15:37 Pratik Weir NP is PHCP. pm1 15:37 Tien Guallpa MD is Attending Physician. pm1 15:48 Coby Perez, AZAM is Primary Nurse. sv 15:50 Patient has correct armband on for positive identification. Bed in low position. Call sv light in reach. Door closed. Head of bed elevated. 15:50 Initial lab(s) drawn, by me, sent to lab. Maintain EMS IV. Dressing intact. Good blood sv return noted. Site clean \\T\\ dry. Gauge \\T\\ site: 20G R FA. 16:15 XRAY Chest (1 view) In Process Unspecified. EDMS 16:[address] Scan. sv 16:54 CT Abd/Pelvis - IV Contrast Only In Process Unspecified. EDMS 19:15 Primary Nurse role handed off by Coby Perez RN sv 19:22 No provider procedures requiring assistance completed. IV discontinued, intact, mg2 bleeding controlled, No redness/swelling at site. Pressure dressing applied. Administered Medications: 16:09 Drug: Albuterol 2.5 mg Route: Inhalation; sv 16:09 Drug: predniSONE 60 mg Route: PO; sv 16:26 Follow up: Response: No adverse reaction sv 16:09 Drug: morphine 4 mg {Note: rass1.} Route: IVP; Site: right forearm; sv 16:30 Follow up: Response: No adverse reaction; Pain is decreased; RASS: Alert and Calm (0) sv 16:09 Drug: Zofran (Ondansetron) 4 mg Route: IVP; Site: right forearm; sv 16:30 Follow up: Response: No adverse reaction sv Outcome: 19:07 Discharge ordered by MD. pm1 19:22 Discharged to home ambulatory. mg2 19:22 Condition: stable 19:22 Discharge instructions given to patient, Instructed on discharge instructions, follow up and referral plans. medication usage, Demonstrated understanding of instructions, follow-up care, medications, Prescriptions given X 3. 19:23 Patient left the ED. mg2 Signatures: Dispatcher [employer] EDCT Coby Perez, AZAM NASCIMENTO Kaylan Kebede RN RN Pratik Weir, ANALYTIC MANAGER ANALYTIC MANAGER pm1 Poonam Verma RN RN hb Gardose, Michele, RN RN mg2
[2020-12-15 19:35] VITALS: TEMP 98.1
[2020-12-15 19:38] VITALS: BP 96/71; O2SAT 99
--- NOTE | 2020-12-16 12:15 | EKG ---
Test Date: 2020-12-15 Test Time: 15:53:24 Lpn Private Duty: NELLI MEASUREMENT RESULTS: Intervals: Rate: 74 W[place]: 130 QRSD: 72 QT: 386 QTc: 428 [place]: P: 69 W[place]: 130 QRS: 55 T: 71 INTERPRETIVE STATEMENTS: Normal sinus rhythm Normal ECG Compared to ECG 08/20/2020 01:34:04 T-wave abnormality no longer present Electronically Signed On 12-16-20 12:13:28 CDT by Clint Norris
== END 2020-12-15 19:23 | disposition home or self-care (01) ==
LOC: ER 14:51
DX: J45.901 Unspecified asthma with (acute) exacerbation (principal); I10 Essential (primary) hypertension; Z88.0 Allergy status to penicillin
CPT/HCPCS: 85025; 80048; 36415; 83735; 85610; 80076; 84484; 83690; 83880; 74177; 71045; Q9967; J2405; 93005; 96374; 96375; 99284; J7512

== ENCOUNTER 2020-12-29 13:55 | Emergency (ER) | payer OTHER ==
--- OUTSIDE RECORDS SUMMARY | 2020-12-29 14:11 | XMS REPORT | Continuity of Care Document ---
:1950 Author Organization [facility] t Address [address] [place] [address] Care Team Providers Name Role Phone UNKNOWN [...] 2017-01-16 Memoria 5-21 20:56:00 l CHEST 00:00: Check PAIN 00 [facility]16[facility] PAIN Diagnosis Active 2016-11-28 Mem oria 4-02 20:00:00 l PAIN 00:00: Maciej 00 [facility] F[facility] Diagnosis Active 2016-11-06 Mem oria SWELLING 3-11 18:35:00 l FACIAL 00:00: Check SWELLING 00 Active 11/06/2016 [facility] SYNCOPE Diagnosis Active 2017-02-18 Me moria 2-12 10:16:00 l SYNCOPE 00:00: Check 00 Active 10/10/2016 [facility] SICK Diagnosis Active 2017-0 2016-10-10 Mem oria 2-12 20:58:00 l SICK 00:00: Check 00 Active 10/10/2016 [facility] CHEST Diagnosis Active 2016-03-12 Mem oria PAIN, 7-14 12:26:00 l HYPOTENSIO CHEST 00:00: Caroline nn N PAIN, 00 HYPOTENSIO N Active 03/11/2016 [facility] SOB Diagnosis Active 2016-03-11 Mem oria 7-14 15:11:00 l SOB 00:00: Check 00 Active 03/11/[address] [facility] BACK PAIN Diagnosis Active 2016-10-12 Memoria 1-17 14:26:00 l BACK 00:00: Maciej PAIN 00 Active 09/14/[address] [facility] COPD, Diagnosis Active 2015-09-05 Mem oria CHEST PAIN 09-03 15:21:00 l COPD, 00:00: Check CHEST PAIN 00 Active 09/03/2015 [facility] HEADACHE Diagnosis Active 2014-082015-07-15 M emoria 09-14 17:17:00 l HEADACHE 00:00: Kristopher n 00 Active 07/15/2015 [facility] SOB/ Diagnosis Active 2014-082015-07-05 Mem oria WEAKNESS 09-03 01:33:00 l SOB/ 22:00: Maciej WEAKNESS 00 Active 07/04/2015 [facility] LOWER BACK Diagnosis Active 2014-082015-07-11 Memoria AND LEG 1 13:07:00 l PAIN LOWER 00:00: Check BACK AND 00 LEG PAIN Active 07/04/2015 [facility] SHORTNESS Diagnosis Active 2014-082015-06-04 Memoria OF BREATH 0-06 01:54:00 l 19:00: Check SHORTNESS 00 OF BREATH Active 06/03/2015 [facility] NAUSEA Diagnosis Active 2015-05-20 Mem oria 05-18 07:49:00 l NAUSEA 00:00: Maciej 00 Active 05/18/2015 [facility] FALL Diagnosis Active 2015-05-02 Mem oria 05-02 16:55:00 l FALL 00:00: Maciej 00 Active 05/02/2015 [facility] NECK AND Diagnosis Active 2015-03-30 M emoria SHOULDER 03-30 16:35:00 l PAIN NECK AND 00:00: Kristopher n SHOULDER 00 PAIN Active 03/30/2015 [facility] SOB/CHEST Diagnosis Active 2015-03-21 Memoria PAIN 03-21 15:46:00 l 00:00: Check SOB/CHEST 00 PAIN Active 03/21/2015 [facility] HYPOTENSIO Diagnosis Active 2015-03-31 Memoria N, CHEST 03-21 11:41:00 l PAIN 00:00: Maciej HYPOTENSIO 00 N, CHEST PAIN Active 03/21/2015 [facility] LOWER BACK Diagnosis Active 2015-03-11 Memoria PAIN 03-11 15:56:00 l LOWER 00:00: Maciej BACK PAIN 00 Active 03/11/2015 [facility] UPPER BACK Diagnosis Active 2015-02-24 Memoria PAIN 02-24 15:44:00 l UPPER 00:00: Maciej BACK PAIN 00 Active 02/24/2015 [facility] ACUTE Diagnosis Active 2015-02-26 Mem oria CHEST PAIN 02-24 09:02:00 l ACUTE 00:00: Maciej CHEST PAIN 00 Active 02/24/2015 [facility] UNSTABLE Diagnosis Active 2015-02-19 M emoria ANGINA; 02-16 13:44:00 l HYPOTENSIO UNSTABLE 00:00: He rmann N ANGINA; 00 HYPOTENSIO N Active 02/16/2015 [facility] CHEST/LEG Diagnosis Active 2013-12-22 Memoria PAIN 12-22 18:23:00 l 00:00: Check CHEST/LEG 00 PAIN Active 12/22/2013 [facility] OTHER Diagnosis Active 2013-12-16 Mem oria 4-20 20:50:00 l OTHER 00:00: Check 00 Active 12/16/2013 [facility] ACS Diagnosis Active 2013-12-18 Mem oria 4- 15:44:00 l ACS 00:00: Maciej 00 Active 12/16/2013 [facility] Stented Problem Resolve 2017-01-22 Mem oria coronary d 04:26:21 l artery Stented Maciej (finding) coronary artery (finding) Resolved Problem 01/22/2017 [facility], Jacek Solo [facility] Asthma Problem Active 2017-01-22 Memor ia (disorder) 04:26:21 l Asthma Maciej (disorder) Active Problem 01/22/2017 [facility], [facility] Cardiac Problem Active 2017-01-22 Eleazar hilton chest pain 04:26:21 l (finding) Cardiac Herm sho chest pain (finding) Active Problem 01/22/2017 [facility], [facility] Hypertensi Problem Active 2017-01-22 M emoria ve 04:26:21 l disorder, Check systemic Hypertensi arterial ve (disorder) disorder, systemic arterial (disorder) Active Problem 01/22/2017 [facility], [facility] Hyperlipid Problem Active 2017-01-22 M emoria emia 04:26:21 l (disorder) Kristopher n Hyperlipid emia (disorder) Active Problem 01/22/2017 [facility], [facility] Myocardial Problem Active 2017-01-22 M emoria infarction 04:26:21 l (disorder) Kristopher n Myocardial infarction (disorder) Active Problem 01/22/2017 [facility], [facility] Smoking Problem Active 2017-01-22 Eleazar hilton cessation 04:26:21 l advice Smoking Maciej (regime/th cessation erapy) advice (regime/th erapy) Active Problem 01/22/2017 [facility], [facility] Substance Problem Active 2017-01-22 Me moria abuse 04:26:21 l (disorder) Kristopher n Substance abuse (disorder) Active Problem 01/22/2017 [facility] Tissue Problem Active 2017-01-22 Memor ia perfusion 04:26:21 l measure Tissue Maciej (observabl perfusion e entity) measure (observabl e entity) Active Problem 01/22/2017 [facility], [facility] Heart Problem Active 2013-12-28 Memor ia disease 01:02:24 l (disorder) Heart Caroline nn disease (disorder) Active Problem 12/28/2013 [facility] INTERMED Diagnosis Active 2013-12-18 M emoria CORONARY 15:44:00 l SYND INTERMED Kristopher n CORONARY SYND Active [facility] ANGINA Diagnosis Active 2015-02-19 Mem oria DECUBITUS 13:44:00 l ANGINA Maciej DECUBITUS Active [facility] HYPOTENSIO Diagnosis Active 2015-03-31 Memoria N NOS 11:41:00 l Check HYPOTENSIO N NOS Active [facility] SYNCOPE Diagnosis Active 2017-02-18 Me moria AND 10:16:00 l COLLAPSE SYNCOPE Caroline nn AND COLLAPSE Active [facility] History of Past Illness Condition Condition Condition Status Onset Resolution Last Treating Co mments Source Name Details Category Date Date Treatment Clinician Date Chest Problem 2017-01-19 2017-01-19 M emoria pain, 01-16 00:39:08 00:39:08 l unspecifie Chest 05:00: Caroline nn d pain, 00 unspecifie d 01/16/2017 01/19/2017 [facility] Urinary Problem 2016-12-01 2016-12-01 Memoria tract 4- 00:38:41 00:38:41 l infection, Urinary 05:00: Her farooq site not tract 00 specified infection, site not specified 11/28/2016 12/01/2016 [facility] Dorsalgia, Problem 2016-12-01 2016-12-01 Memoria unspecifie 4- 00:38:41 00:38:41 l d 05:00: Check Dorsalgia, 00 unspecifie d 11/28/2016 12/01/2016 [facility] Bitten or Problem 2016-11-09 2016-11-09 Memoria stung by 3-11 03:02:23 03:02:23 l nonvenomou Bitten 06:00: Herm sho s insect or stung 00 and other by nonvenomou nonvenomou s s insect arthropods and other , initial nonvenomou encounter s arthropods , initial encounter 11/06/2016 11/09/2016 [facility] Discharge Problem 2016-04-17 2016-04-17 Memoria Diagnosis: 04-14 03:14:09 03:14:09 l Syncope, 05:00: Check near Discharge 00 Diagnosis: Syncope, near 04/14/2016 04/17/2016 [facility] Discharge Problem 2016-03-08 2016-03-08 Memoria Diagnosis: 03-05 04:59:23 04:59:23 l Trichomona 05:00: Kristopher n s Discharge 00 vaginitis Diagnosis: Trichomona s vaginitis 03/05/2016 03/08/2016 [facility] Discharge Problem 2015-2016-03-08 2016-03-08 Memoria Diagnosis: 03-05 04:59:23 04:59:23 l Lumbago 05:00: Maciej Discharge 00 Diagnosis: Lumbago 03/05/2016 03/08/2016 [facility] Discharge Problem 2015-2016-03-03 2016-03-03 Memoria Diagnosis: 02-28 00:43:25 00:43:25 l Bronchitis 05:00: Kristopher n Discharge 00 Diagnosis: Bronchitis 02/29/2016 03/03/2016 [facility] Discharge Problem 2015-05-21 2015-05-21 Memoria Diagnosis: 05-18 01:04:08 01:04:08 l Abdominal 05:00: Check pain, Discharge 00 acute, Diagnosis: epigastric Abdominal pain, acute, epigastric 05/18/2015 05/21/2015 [facility] Discharge Problem 2015-05-12 2015-05-12 Memoria Diagnosis: 05-09 07:40:44 07:40:44 l Chest pain 05:00: Kristopher n Discharge 00 Diagnosis: Chest pain 05/09/2015 05/12/2015 [facility] Discharge Problem 2015-05-05 2015-05-05 Memoria Diagnosis: 05-02 10:45:36 10:45:36 l Vertigo 05:00: Check Discharge 00 Diagnosis: Vertigo 05/02/2015 05/05/2015 [facility] Discharge Problem 2015-05-05 2015-05-05 Memoria Diagnosis: 05-02 10:45:36 10:45:36 l Syncope 05:00: Maciej and Discharge 00 collapse Diagnosis: Syncope and collapse 5 05/05/2015 [facility] Discharge Problem 2015-04-14 2015-04-14 Memoria Diagnosis: 04-11 05:25:30 05:25:30 l Knee pain, 05:00: Kristopher n right Discharge 00 Diagnosis: Knee pain, right 04/11/2015 04/14/2015 [facility] Discharge Problem 2015-04-14 2015-04-14 Memoria Diagnosis: 04-11 05:25:30 05:25:30 l Lumbar 05:00: Check spondylosi Discharge 00 s Diagnosis: Lumbar spondylosi s 04/11/2015 04/14/2015 [facility] Discharge Problem 2015-04-14 2015-04-14 Memoria Diagnosis: 04-11 05:25:30 05:25:30 l Anterolist 05:00: Kristopher n hesis Discharge 00 Diagnosis: Anterolist hesis 04/11/2015 04/14/2015 [facility] Discharge Problem 2015-04-14 2015-04-14 Memoria Diagnosis: 04-11 05:25:30 05:25:30 l Accidental 05:00: Kristopher n fall Discharge 00 Diagnosis: Accidental fall 04/11/2015 04/14/2015 [facility] Discharge Problem 2015-04-02 2015-04-02 Memoria Diagnosis: 03-30 00:46:48 00:46:48 l Chronic 05:00: Check pain in Discharge 00 right Diagnosis: shoulder Chronic pain in right shoulder 5 04/02/2015 [facility] Discharge Problem 2015-03-14 2015-03-14 Memoria Diagnosis: 03-11 09:47:20 09:47:20 l Chest wall 05:00: Kristopher n muscle Discharge 00 strain Diagnosis: Chest wall muscle strain 03/11/2015 03/14/2015 [facility] Discharge Problem 2015-03-08 2015-03-08 Memoria Diagnosis: 03-05 04:07:57 04:07:57 l Dyspnea 05:00: Maciej Discharge 00 Diagnosis: Dyspnea 03/05/2015 03/08/2015 [facility] Allergies, Adverse Reactions, Alerts Allergy Allergy Status Severity Reaction(s) Onset Inactive Treating Comm ents Source Name Type Date Date Clinician Penicill Propensi Active Justin ins ty to 07 Health adverse 00:00: reaction 00 s to drug penicill penicill Active Pari a ins ins l Check Social History Social Habit Start Date Stop Date Quantity Comments Source Sex Assigned At [facility] Social History 2016-10-10 2016-10-10 Cinthia murray 18:40:19 [...] Cam ris (NAPROSYN) 7-11 bilateral tablet by [employer] 375 mg 00:00: low back mouth 2 tablet 00 pain, with times sciatica daily as presence needed (as unspecified needed for pain). Sodium No 1,000 mL, Memori a Chloride 5-24 2,000 l 0.154 18:00: ml/hr, Check MEQ/ML 00 Infuse Injectable Over: 30 Solution [...] tab, PO, l tablet 01:43: TID, PRN Check 00 for dizziness, # 60 tab, 0 [...] -03 (Same as: l / 00:23: Duoneb) Check Ipratropium 00 [place] 0.167 MG/ML Inhalant Solution [DuoNeb] Saline No [...] n 2-14 Same as l 03:00: Lipitor Maciej 00 remove No Notes: Memoria patch 2-14 Remove l 03:00: patch 12 Check 00 hours after applicatio n each day. metoprolol No Notes: Memor ia tartrate 2-13 (Same as: l 15:00: Lopressor) Maciej 00 12.5 mg=1/2 X 50 mg TAB heparin No Notes: Memoria sodium, 2-13 porcine l porcine 15:00: heparin Check 2500 UNT/ML 00 Injectable Solution Protonix No [...] Weight 50, kg, Start date: 10/11/16 9:00:00 [employer], Duration: 30 day, Stop date: 11/09/16 17:00:00 [...] 2-13 not exceed l 02:07: 4 gm/day. Check 00 (Same as: Tylenol) Docusate No Notes: Memoria 2-13 (Same as: l 02:07: Colace) (Do Not Crush) Morphine No Notes: Memoria 2-13 (Same l 02:07: as:MORPhin e Sulfate) Acetaminoph No Notes: Eleazar hilton en 325 MG / 2-13 (Same as: l Hydrocodone 02:07: [place] Caroline nn Bitartrate 00 325/5) Do 5 [...] Weight 50, kg, Start date: 09/15/16 9:00:00 [employer], Duration: 30 day, Stop date: 10/14/16 9:00:00 [employer] tramadol Yes 50 mg = 1 Eleazar hilton hydrochlori 8-17 tab, PO, l de 50 MG 06:12: BID, X 15 Herm sho Oral Tablet 00 day, # 30 tab, 0 Refill(s) Acetaminoph No Notes: Eleazar hilton en 325 MG / 8-17 (Same as: l Hydrocodone 05:13: [place] Caroline nn Bitartrate 00 325/5) Do 5 MG Oral not exceed Tablet 4gm/day of [[place] acetaminop 5/325] hen. atorvastati No Notes: Eleazar hilton n 7-16 (Same as: l 02:00: Lipitor) Maciej 00 200 ACTUAT No Notes: Memor ia Albuterol 7-15 Same as: l 0.09 16:00: Ventolin Check MG/ACTUAT 00 HFA Metered WASTE: Dose Aerosol - Inhaler Return to [[facility]FA] Protonix No Notes: Memoria 7-15 Tablet l 15:00: should not Check 00 be chewed or crushed. (Same as: [...] -15 Take with l Tablet 14:00: food. Check 00 tramadol No Notes: Not Mem oria [...] Chloride 14 1,000 l 0.154 20:57: ml/hr, Maciej MEQ/ML 00 Infuse Injectable Over: 1 Solution Hour, Route: IV, ONCE, Priority: STAT, Dosing Weight 50 kg, Start date: 03/11/16 15:57:00 CDT, Duration: 1 doses or times, Stop date: 03/11/16 15:57:00 CDT Sodium No 1,000 mL, Memori a Chloride 03-11 1,000 l 0.154 20:56: ml/hr, Check MEQ/ML 00 Infuse Injectable Over: 1 Solution Hour, Route: IV, ONCE, Priority: STAT, Dosing Weight 50 kg, Start date: 03/11/16 15:56:00 CDT, Duration: 1 doses or times, Stop date: 03/11/16 15:56:00 CDT Saline No Notes: Memoria Flush 0.9% 03-11 (Same as: l 20:05: BD Maciej 00 Posiflush) Nitroglycer No Notes: Eleazar hilton in 03-11 (Same l 20:05: as:Nitroqu Check ick, Nitrostat) "Do Not Crush" Sublingual tablet tramadol Yes 50 mg = 1 Eleazar hiltno hydrochlori 03-06 tab, PO, l de 50 [...] / 03-06 (Same as: l Hydrocodone 00:55: [place] Caroline nn Bitartrate 00 325/5) Do 5 MG Oral not exceed Tablet 4gm/day of [[place] acetaminop 5/325] hen. Flagyl No Notes: Memoria 03-06 (Same as: l 00:55: Flagyl) Check 00 Take with food/ avoid alcohol predniSONE [...] (Same as: l MEQ 23:48: K-Dur 20) Check Extended 00 "Do Not Release Crush" Tablet With food and full glass of water Albuterol No Notes: Memori a 0.833 MG/ML 02-28 (Same as: l / 22:53: Duoneb) Maciej Ipratropium 00 [place] 0.167 MG/ML Inhalant Solution [DuoNeb] Symbicort Yes [...] tab, PO, l Tablet 13:20: Daily, 0 Check 00 Refill(s) atorvastati No Notes: Eleazar hilton n -08 (Same as: l 03:00: Lipitor) Maciej 00 Solu-Medrol No Notes: Eleazar hilton -07 (Same l 22:00: as:Solu-ME Check 00 DROL, A-Methapre d) 24 HR No Notes: Memoria Metoprolol - (Same as: l Tartrate 25 15:00: Toprol XL) Maciej MG Extended 00 Do Not Release Crush Tablet [Toprol] clopidogrel No Notes: Eleazar hilton 09-04 (Same As: l 15:00: Plavix) Maciej 00 Protonix No Notes: Memoria 09-04 Tablet l 15:00: should not Maciej 00 [...] as: l / 14:00: Duoneb) Ipratropium 00 [place] 0.167 MG/ML Inhalant Solution methylPREDN No Notes: Eleazar hilton ISolone 09-04 (Same l SODium 14:00: as:Solu-ME Caroline nn SUCCinate 00 DROL, A-Methapre d) methylPREDN No Notes: Eleazar hilton ISolone 09-04 (Same l SODium 04:05: as:Solu-ME Caroline nn SUCCinate 00 DROL, A-Methapre d) Albuterol No Notes: Memori a 0.833 MG/ML 09-04 (Same as: l / 04:05: Duoneb) Check Ipratropium 00 [place] 0.167 MG/ML Inhalant Solution Saline No Notes: Memoria Flush 0.9% 09-04 (Same as: l 04:05: BD Check 00 Posiflush) atorvastati 2014-08 No Notes: Eleazar [...] microgram l 0.09 17:40: = 1 puff, Check MG/ACTUAT 00 INHALATION Metered , Q4H, PRN [...] 1-18 (Same as: l / 03:38: Duoneb) Check Ipratropium 00 [place] 0.167 MG/ML Inhalant Solution Sodium 2014-08 No 250 mL, Memoria Chloride 09-15 Route: l 0.9% IV 03:26: IVPB, Maciej 00 Start date: 07/15/15 21:26:00, Duration: 30 day, Stop date: 08/14/15 21:25:00, PRN Line Flush BD Normal 2014-08 No Notes: Memori a Saline 09-15 (Same as: l Flush 03:26: BD Check Posiflush) Nitroglycer 2014-08 No Notes: Eleazar hilton in 09-15 (Same l 03:23: as:Nitroqu Maciej 00 ick, Nitrostat) "Do Not Crush" Sublingual tablet Ibuprofen 2014-08 No Notes: Memori a 09-15 (Same as: l 03:20: Motrin) Check 00 "Do Not Crush" Give with food. Baclofen 2014-08 No Notes: Memoria 09-15 (Same As: l 03:20: Lioresal) Maciej 00 200 ACTUAT 2014-08 No Notes: Memor ia Albuterol 09-15 Albuterol l 0.09 03:20: 90 Check MG/ACTUAT 00 microgram/ Metered inh 8gm Dose [...] Memoria 09-14 Route: PO, l 20:15: ONCE, Check 00 Dosing Weight 50, kg, Priority: STAT, Start date: 07/15/15 14:15:00, Stop date: 07/15/15 14:15:00 Saline 2014-08 No Notes: Memoria Flush 0.9% 1-17 (Same as: l 20:15: BD Posiflush) Sodium No 500 mL, Memoria Chloride 05-18 500 ml/hr, l 0.154 21:02: Infuse Check MEQ/ML 00 Over: 1 Injectable Hour, Solution [...] / 04-11 Same as l Hydrocodone 17:21: [place] Caroline nn Bitartrate 00 325-7.5mg 7.5 MG Oral Do not Tablet exceed [[place] 4gm/day of 7.5/325] acetaminop hen. ibuprofen Yes [...] Memori a 03-23 (Same l 17:35: as:Chronul Check 00 ac) atorvastati No Notes: Eleazar hilton n 03-23 (Same As: l 02:00: Lipitor) Motrin No Notes: Memoria - (Same as: l 23:10: Motrin) Check 00 "Do Not Crush" Take with food. [...] tab, PO, l tablet 02:19: Daily, # Check 00 30 tab, 0 Refill(s) omeprazole Yes 20 mg = 1 Me moria 20 mg oral 7-25 tab, PO, l enteric 02:19: BID, # 60 Caroline nn coated 00 tab, 0 tablet Refill(s) atorvastati Yes 80 mg = 2 M emoria n 40 mg 7-25 tab, PO, l oral tablet 02:19: Bedtime, # Check 00 90 tab, 0 Refill(s) 200 ACTUAT Yes 1 puff, Eleazar hilton Albuterol 7-25 INHALATION l 0.09 02:19: , Q4H, PRN Check MG/ACTUAT 00 for Metered wheezing, Dose # 9 gm, 0 Inhaler Refill(s) Ondansetron No Notes: Eleazar hilton 7-25 (Same as: l 02:12: Zofran) Maciej MEDICATION WASTE Product Size: 4 mg Product Wasted: ___ mg Docusate No Notes: Memoria 7-25 (Same as: l 02:12: Colace) Check (Do Not Crush) Acetaminoph No Notes: Do M emoria en 7-25 not exceed l 02:12: 4 gm/day. Maciej (Same as: Tylenol) Budesonide No Notes: Memor ia 0.25 MG/ML 7-25 (Same As: l Inhalant 01:00: Pulmicort) Her farooq Solution 00 [Pulmicort] Albuterol No Notes: Memori a 0.833 MG/ML 03-22 (Same as: l / 01:00: Duoneb) Maciej Ipratropium 00 [place] 0.167 MG/ML Inhalant Solution [DuoNeb] Potassium No [...] Chloride 24 1,000 l 0.154 21:12: ml/hr, Check MEQ/ML 00 Infuse Injectable Over: 1 Solution hr, Route: IV, 1,000, Drug form: INJ, ONCE, Priority: STAT, Dosing Weight 50 kg, Start date: 03/21/15 16:12:00, Duration: 1 doses or times, Stop date: 03/21/15 16:12:00 Ondansetron No Notes: Eleazar hilton -24 (Same as: l 20:43: Zofran) Maciej MEDICATION WASTE Product Size: 4 mg Product Wasted: ___ mg Morphine No Notes: Memoria -24 (Same l 20:43: as:MORPhin Maciej 00 e Sulfate) Aspirin No Notes: Memoria 7-24 Take with l 20:43: food. Check 00 Saline No Notes: Memoria Flush 0.9% 03-21 (Same as: l 20:43: BD Maciej Posiflush) tramadol No 50 mg = 1 Eleazar hilton hydrochlori 7-14 tab, PO, l de 50 MG 22:02: Q4H, PRN Caroline nn Oral Tablet 00 pain, # 20 [Ultram] tab, 0 Refill(s) Aspirin No Notes: Memoria - Take with l 20:32: food. Check 00 Morphine No Notes: Memoria 03-11 (Same l 20:32: as:MORPhin e Sulfate) Ondansetron No Notes: Eleazar hilton 03-11 (Same as: l 20:32: Zofran) MEDICATION WASTE Product Size: 4 mg Product Wasted: ___ mg Saline No Notes: Memoria Flush 0.9% 03-11 (Same as: l 20:32: BD Check 00 Posiflush) Famotidine No 20 mg, 1 Mem oria 20 MG Oral 7-08 tab, l Tablet 14:00: Route: PO, Caroline nn [Pepcid] 00 BID, Dosing Weight 50, kg, Start date: 03/05/15 9:00:00, Duration: 30 day, Stop date: 04/03/15 17:00:00 MDI Inhaler Yes Special Mem oria Spacer 03-05 Instructio l 09:13: ns: Use as Maciej 00 directed 200 ACTUAT Yes 1 puff, Eleazar hilton Albuterol 08 INHALATION l 0.09 09:12: , Q4H, PRN Check MG/ACTUAT 00 for Metered wheezing, Dose # [...] hilton 08 Route: PO, l 07:16: Dosing Maciej 00 Weight 50, kg, ONCE, STAT, Start [...] TOP, l 0.875 MG/HR 13:32: Daily, X [facility] Transdermal 56 14 day, # Patch 14 [...] PO, l oral tablet 13:32: T[facility], [facility] for spasms, # 30 tab, 0 Refill(s) clopidogrel Yes 75 mg = 1 M emoria 75 MG Oral 6-30 tab, PO, l Tablet 13:32: Daily, # Check [Plavix] 00 30 tab, 0 Refill(s) Protonix [...] 02-24 not exceed l 22:20: 4 gm/day. Maciej 00 (Same as: Tylenol) Aspirin No Notes: [...] PO, l oral tablet 20:24: Bedtime, # Check 00 30 tab, 0 Refill(s) omeprazole Yes [...] PO, l oral tablet 17:00: Bedtime, # Check 00 60 tab, 0 Refill(s) Nicotine No Notes: Memoria 6-22 (Same as: l 14:00: Habitrol) Maciej 00 "Remove old patch before applicatio n of new patch" Aspirin 81 No Notes: Do Me moria MG Enteric -22 not crush l Coated 14:00: or chew. Maciej Tablet 00 (Same As: Ecotrin) Sodium No 1,000 mL, Memori a Chloride -22 Rate: 125 l 0.154 13:38: ml/hr, Check MEQ/ML 00 Infuse Injectable over: 8 Solution hr, Route: IV, Dosing Weight 51.051 kg, Total Volume: 1,000, Start date: 02/17/15 8:38:00, Duration: 30 day, Stop date: 03/19/15 8:37:00 Aspirin 81 No 81 mg = 1 Me moria MG Enteric 6-22 tab, PO, l Coated 02:37: Daily, # Check Tablet 00 90 tab, 3 Refill(s) clopidogrel Yes 75 mg = 1 M emoria 75 MG Oral 02-17 tab, PO, l Tablet 02:37: Daily, # Check [Plavix] 00 30 tab, 0 Refill(s) Enoxaparin [...] rphan 02-17 (dextromet l Hydrobromid 02:08: horphan-gu Check e 2 MG/ML / 00 aifenesin Guaifenesin [...] hilton in 02-17 (Same l 02:06: as:Nitroqu Maciej 00 ick, Nitrostat) "Do Not Crush" Sublingual tablet Acetaminoph No Notes: Do M emoria en 02-17 not exceed l 02:06: 4 gm/day. Check 00 (Same as: Tylenol) Acetaminoph No Notes: Eleazar hilton en 325 MG / 02-17 (Same as: l Hydrocodone 02:06: [place] Caroline nn Bitartrate 00 325/5) Do 5 MG Oral not exceed Tablet 4gm/day of acetaminop hen. Morphine No Notes: Memoria 02-17 (Same l 02:06: as:MORPhin Maciej 00 e Sulfate) Sodium No 1,000 mL, Memori a Chloride 02-17 Rate: 125 l 0.154 02:06: ml/hr, Check MEQ/ML 00 Infuse Injectable over: 8 Solution [...] 02-17 Route: l 0.9% IV 00:52: IVPB, Check 00 Start date: 02/16/15 19:52:00, Duration: 30 day, Stop date: 03/18/15 19:51:00, PRN Line Flush BD Normal No Notes: Memori a Saline 02-17 (Same as: l Flush 00:52: BD Maciej 00 Posiflush) Morphine No Notes: Memoria 02-17 (Same l 00:28: as:MORPhin Check 00 e Sulfate) Nitroglycer No Notes: Eleazar hilton in 02-17 (Same l 00:28: as:Nitroqu Maciej 00 ick, Nitrostat) "Do Not Crush" Sublingual tablet Aspirin No Notes: (Do Eleazar hilton 02-16 Not Crush) l 22:49: Do not Check crush or chew. Ondansetron No Notes: Eleazar hilton 12-22 (Same as: l 21:22: Zofran) Morphine No Notes: [facility] 12-22 (Same l 21:22: as:MORPhin Maciej e Sulfate) Aspirin / No Notes: Memori a Calcium 12-22 Take with l Carbonate 21:22: food. Aspirin 81 Yes 81 mg = 1 Me moria MG Enteric 4-21 tab, PO, l Coated 20:08: Daily, # Check Tablet 00 90 tab, 0 Refill(s) metoprolol Yes 12.5 mg = Me moria tartrate 25 -21 0.5 tab, l mg oral 20:08: PO, BID, # Herm sho tablet 00 90 tab, 0 Refill(s) clopidogrel Yes 75 mg = 1 M emoria 75 mg oral 4-21 tab, PO, l tablet 20:08: Daily, # Check 00 90 tab, 0 Refill(s) atorvastati Yes 20 mg = 1 M emoria n 20 mg 4-21 tab, PO, l oral tablet 20:08: Bedtime, # Check 00 90 tab, 0 Refill(s) metoprolol No [...] 4-21 mg, Route: l 03:42: IVP, ONCE, Check 00 Dosing Weight 49.545, kg, Priority: Routine, Start date: 12/16/13 22:42:00, Stop date: 12/16/13 22:42:00 atorvastati No Notes: Eleazar hilton n 12-17 (Same As: l 03:28: Lipitor) Check 00 Saline No Notes: [facility] Flush 0.9% 12-17 (Same as: l 03:25: BD Check 00 Posiflush) Nitroglycer No Notes: Eleazar hilton [...] Chloride 12-16 1,000 l 0.154 23:43: ml/hr, Check MEQ/ML 00 Infuse Injectable Over: 1 Solution hr, Route: IV, 1,000, Drug form: INJ, ONCE, Priority: STAT, Dosing Weight 48.636 kg, Start date: 12/16/13 18:43:00, Duration: 1 doses or times, Stop date: 12/16/13 18:43:00 Iohexol No Special [facility] 4-20 Instructio l 21:17: ns: Dose = Check 00 2.2ml/kg, Max dose = 100ml -- "To be infused by Radiology Staff ONLY" Sodium No 1,000 mL, [facility]ori a Chloride 4-20 1,000 l 0.154 19:43: ml/hr, Check MEQ/ML 00 Infuse Injectable Over: 1 Solution [...] n 3-14 tab, l 02:00: Route: PO, Check 00 Drug form: TAB, Bedtime, Dosing Weight [...] tab, PO, l Tablet 20:52: Daily, # Check [Plavix] 00 30 tab, 0 Refill(s) atorvastati Yes 20 mg = 1 M emoria n 20 mg 3-13 tab, PO, l oral tablet 20:52: Bedtime, # Check 00 30 tab, 0 Refill(s) Aspirin 81 Yes 81 mg = 1 Me moria MG Chewable 3-13 tab, PO, l Tablet 20:52: Daily, # Maciej 00 60 tab, 0 Refill(s) Plavix No 75 mg, 1 [facility] 3-13 tab, l 14:00: Route: PO, Check 00 Drug form: TAB, Daily, Dosing Weight [...] ia 3-13 tab, l 13:15: Route: PO, Check 00 Drug form: TAB, Q4H, Dosing Weight [...] Maciej Respitory Rate 2017-01-19 23:16:00 [facility] al Check Systolic (mm Hg) 2017-01-19 22:28:00 Eleazar rial Maciej Diastolic (mm Hg) 2017-01-19 22:28:00 Mem o[facility] Check Respitory Rate 2017-01-19 22:28:00 [facility] al Maciej Respitory Rate 2017-01-19 21:00:00 [facility] Check Systolic (mm Hg) 2017-01-19 20:00:00 Eleazar rial Maciej Diastolic (mm Hg) 2017-01-19 20:00:00 [facility] Check Weight 2017-01-19 17:23:00 [facility] Check BMI Calculated 2017-01-19 17:23:00 [facility] Maciej Height 2017-01-19 17:23:00 152.4 cm [facility] Maciej Temperature Oral (F) 2017-01-19 17:23:00 97.0 F [facility] Check Heart Rate 2017-01-19 17:23:00 [facility] Check Systolic (mm Hg) 2017-01-17 02:10:00 Eleazar rial Maciej Diastolic (mm Hg) 2017-01-17 02:10:00 Mem o[facility] Check Respitory Rate 2017-01-17 02:10:00 [facility] Maciej Systolic (mm Hg) 2017-01-17 01:21:00 Eleazar rial Check Diastolic (mm Hg) 2017-01-17 01:21:00 [facility] o[facility] Check Respitory Rate 2017-01-17 01:21:00 [facility] Check Temperature Oral (F) 2017-01-17 01:21:00 98.1 F [facility] Maciej Systolic (mm Hg) 2017-01-17 00:28:00 Eleazar rial Maciej Diastolic (mm Hg) 2017-01-17 00:28:00 Mem o[facility] Check Respitory Rate 2017-01-17 00:28:00 [facility] Check Heart Rate 2017-01-16 23:24:00 [facility] Check Temperature Oral (F) 2017-01-16 23:24:00 98 F [facility] Check Weight 2017-01-16 23:24:00 [facility] Check Heart Rate 2016-11-29 03:44:00 [facility] Maciej Systolic (mm Hg) 2016-11-29 03:44:00 Eleazar rial Maciej Diastolic (mm Hg) 2016-11-29 03:44:00 [facility] o[facility] Check Respitory Rate 2016-11-29 03:44:00 [facility] Check Temperature Oral (F) 2016-11-29 03:44:00 98.7 F [facility] Maciej Heart Rate 2016-11-29 03:24:00 [facility] Check Respitory Rate 2016-11-29 03:24:00 [facility] Check Systolic (mm Hg) 2016-11-29 03:24:00 Eleazar rial Maciej Diastolic (mm Hg) 2016-11-29 03:24:00 [facility] o[facility] Maciej Heart Rate 2016-11-29 02:51:00 [facility] Maciej Respitory Rate 2016-11-29 02:51:00 [facility] Check Systolic (mm Hg) 2016-11-29 02:51:00 Eleazar rial Maciej Diastolic (mm Hg) 2016-11-29 02:51:00 [facility] Check Weight 2016-11-29 00:21:00 [facility] Maciej BMI Calculated 2016-11-29 00:21:00 [facility] Check Height 2016-11-29 00:21:00 152.4 cm [facility] Maciej Temperature Oral (F) 2016-11-29 00:21:00 98.6 F [facility] Check Respitory Rate 2016-11-07 02:47:00 [facility] Check Heart Rate 2016-11-07 02:47:00 [facility] Maciej Temperature Oral (F) 2016-11-07 02:47:00 98.2 F [facility] Check Systolic (mm Hg) 2016-11-07 02:47:00 Eleazar rial Maciej Diastolic (mm Hg) 2016-11-07 02:47:00 [facility] Check Heart Rate 2016-11-07 02:22:00 [facility] Maciej Respitory Rate 2016-11-07 02:22:00 [facility] Check Systolic (mm Hg) 2016-11-07 02:22:00 Eleazar rial Maciej Diastolic (mm Hg) 2016-11-07 02:22:00 [facility] o[facility] Maciej Weight 2016-11-06 23:37:00 [facility] Maciej Heart Rate 2016-11-06 23:37:00 [facility] Check Temperature Oral (F) 2016-11-06 23:37:00 98.3 F [facility] Check Respitory Rate 2016-11-06 23:37:00 [facility] Maciej Systolic (mm Hg) 2016-11-06 23:37:00 Eleazar rial Maciej Diastolic (mm Hg) 2016-11-06 23:37:00 [facility] o[facility] Check Respitory Rate 2016-10-11 18:24:00 [facility] Maciej Temperature Oral (F) 2016-10-11 18:24:00 97.9 F [facility] Maciej Systolic (mm Hg) 2016-10-11 18:24:00 Eleazar rial Check Diastolic (mm Hg) 2016-10-11 18:24:00 [facility] o[facility] Check Heart Rate 2016-10-11 18:24:00 [facility] Check Heart Rate 2016-10-11 13:53:00 [facility] Maciej Systolic (mm Hg) 2016-10-11 13:53:00 Eleazar rial Check Diastolic (mm Hg) 2016-10-11 13:53:00 [facility] Maciej Temperature Oral (F) 2016-10-11 13:53:00 98.1 F [facility] Maciej Temperature Oral (F) 2016-10-11 10:16:00 99.0 F [facility] Check Respitory Rate 2016-10-11 10:16:00 [facility] Check Heart Rate 2016-10-11 10:16:00 [facility] Maciej Systolic (mm Hg) 2016-10-11 10:16:00 Eleazar rial Maciej Diastolic (mm Hg) 2016-10-11 10:16:00 [facility] Check Weight 2016-10-11 06:46:00 [facility] Check BMI Calculated 2016-10-11 06:46:00 [facility] Maciej Height 2016-10-11 06:46:00 152.4 cm [facility] Check Respitory Rate 2016-10-11 06:39:00 [facility] Check Height 2016-10-10 17:48:00 152.4 cm [facility] Check BMI Calculated 2016-10-10 17:48:00 [facility] Check Weight 2016-10-10 17:48:00 [facility] Check BMI Calculated 2016-09-15 04:26:00 [facility] Check Weight 2016-09-15 04:26:00 [facility] Check Height 2016-09-15 04:26:00 152.4 cm [facility] Check Systolic (mm Hg) 2016-09-15 04:26:00 Eleazar rial Maciej Diastolic (mm Hg) 2016-09-15 04:26:00 [facility] o[facility] Check Respitory Rate 2016-09-15 04:26:00 [facility] Check Heart Rate 2016-09-15 04:26:00 [facility] Check Temperature Oral (F) 2016-09-15 04:26:00 98.5 F [facility] Maciej Respitory Rate 2016-04-14 06:22:00 [facility] Maciej Temperature Oral (F) 2016-04-14 06:22:00 98.7 F [facility] Check Systolic (mm Hg) 2016-04-14 06:22:00 Eleazar rial Check Diastolic (mm Hg) 2016-04-14 06:22:00 [facility] Check Heart Rate 2016-04-14 06:22:00 [facility] Maciej BMI Calculated 2016-04-14 02:12:00 [facility] Check Weight 2016-04-14 02:12:00 [facility] Maciej Temperature Oral (F) 2016-04-14 02:12:00 99.2 F [facility] Maciej Height 2016-04-14 02:12:00 152.4 cm [facility] Maciej Respitory Rate 2016-04-14 02:12:00 [facility] Maciej Systolic (mm Hg) 2016-04-14 02:12:00 Eleazar rial Check Diastolic (mm Hg) 2016-04-14 02:12:00 [facility] o[facility] Maciej Heart Rate 2016-04-14 02:12:00 [facility] Check Temperature Oral (F) 2016-03-12 17:00:00 97.8 F [facility] Check Heart Rate 2016-03-12 17:00:00 [facility] Maciej Respitory Rate 2016-03-12 17:00:00 [facility] Maciej Systolic (mm Hg) 2016-03-12 17:00:00 Eleazar rial Maciej Diastolic (mm Hg) 2016-03-12 17:00:00 Mem o[facility] Check Respitory Rate 2016-03-12 12:54:00 [facility] Maciej Systolic (mm Hg) 2016-03-12 12:30:00 Eleazar rial Check Diastolic (mm Hg) 2016-03-12 12:30:00 [facility] o[facility] Check Respitory Rate 2016-03-12 12:30:00 [facility] Maciej Heart Rate 2016-03-12 12:30:00 [facility] Check Temperature Oral (F) 2016-03-12 12:30:00 98.2 F [facility] Check Temperature Oral (F) 2016-03-12 10:26:00 98.0 F [facility] Check Heart Rate 2016-03-12 10:26:00 [facility] Maciej Systolic (mm Hg) 2016-03-12 10:26:00 Eleazar rial Maciej Diastolic (mm Hg) 2016-03-12 10:26:00 [facility] o[facility] Maciej Height 2016-03-11 19:45:00 152.4 cm [facility]iej BMI Calculated 2016-03-11 19:45:00 [facility] Maciej Weight 2016-03-11 19:45:00 [facility] Maciej Respitory Rate 2016-03-06 01:44:00 [facility] Maciej Systolic (mm Hg) 2016-03-06 01:44:00 Eleazar rial Maciej Diastolic (mm Hg) 2016-03-06 01:44:00 [facility] Check Heart Rate 2016-03-06 01:44:00 [facility] Check Temperature Oral (F) 2016-03-06 01:44:00 98.1 F [facility] Check BMI Calculated 2016-03-05 21:55:00 [facility] Check Weight 2016-03-05 21:55:00 [facility] Maciej Systolic (mm Hg) 2016-03-05 21:55:00 Eleazar rial Maciej Diastolic (mm Hg) 2016-03-05 21:55:00 [facility] o[facility] Maciej Heart Rate 2016-03-05 21:55:00 [facility] Check Height 2016-03-05 21:55:00 152.4 cm [facility] Maciej Temperature Oral (F) 2016-03-05 21:55:00 98.3 F [facility] Maciej Respitory Rate 2016-03-05 21:55:00 [facility] Check Respitory Rate 2016-03-01 01:23:00 [facility] Maciej Systolic (mm Hg) 2016-03-01 01:23:00 Eleazar rial Check Diastolic (mm Hg) 2016-03-01 01:23:00 [facility] o[facility] Maciej Temperature Oral (F) 2016-03-01 01:23:00 98.2 F [facility] Maciej Heart Rate 2016-03-01 01:23:00 [facility] Check Respitory Rate 2016-02-29 23:25:00 [facility] Maciej Temperature Oral (F) 2016-02-29 22:27:00 98.3 F [facility] Check Heart Rate 2016-02-29 22:27:00 [facility] Maciej Respitory Rate 2016-02-29 22:27:00 [facility] Maciej Systolic (mm Hg) 2016-02-29 22:27:00 Eleazar rial Check Diastolic (mm Hg) 2016-02-29 22:27:00 [facility] o[facility] Check Respitory Rate 2015-09-05 14:47:00 [facility] Check Systolic (mm Hg) 2015-09-05 14:47:00 Eleazar rial Maciej Diastolic (mm Hg) 2015-09-05 14:47:00 [facility] Check Heart Rate 2015-09-05 14:47:00 [facility] Check Weight 2015-09-05 11:00:00 [facility] Check Systolic (mm Hg) 2015-09-05 10:00:00 Eleazar rial Maciej Diastolic (mm Hg) 2015-09-05 10:00:00 Mem o[facility] Maciej Respitory Rate 2015-09-05 10:00:00 [facility] Check Heart Rate 2015-09-05 10:00:00 [facility] Maciej Respitory Rate 2015-09-05 06:00:00 [facility] Check Systolic (mm Hg) 2015-09-05 06:00:00 Eleazar rial Check Diastolic (mm Hg) 2015-09-05 06:00:00 [facility] Check Heart Rate 2015-09-05 06:00:00 [facility] Check Weight 2015-09-04 11:00:00 [facility] Check Weight 2015-09-04 09:15:00 [facility] Check BMI Calculated 2015-09-04 09:15:00 [facility] Maciej Height 2015-09-04 09:15:00 160.02 cm [facility] Maciej Temperature Oral (F) 2015-09-04 09:06:00 98.3 F [facility] Check Height 2015-09-04 03:35:00 152.4 cm [facility] Check BMI Calculated 2015-09-04 03:35:00 [facility] Check Temperature Oral (F) 2015-09-04 03:35:00 98.7 F [facility] Maciej Systolic (mm Hg) 2015-07-16 13:56:00 Eleazar rial Check Diastolic (mm Hg) 2015-07-16 13:56:00 [facility] o[facility] Check Respitory Rate 2015-07-16 13:56:00 [facility] Check Heart Rate 2015-07-16 13:56:00 [facility] Check Temperature Oral (F) 2015-07-16 13:56:00 98.0 F [facility] Check Systolic (mm Hg) 2015-07-16 13:55:00 Eleazar rial Maciej Diastolic (mm Hg) 2015-07-16 13:55:00 Mem o[facility] Maciej Respitory Rate 2015-07-16 13:55:00 [facility] Maciej Heart Rate 2015-07-16 13:55:00 [facility] Check Temperature Oral (F) 2015-07-16 13:55:00 97.4 F [facility] Maciej Systolic (mm Hg) 2015-07-16 10:00:00 Eleazar rial Check Diastolic (mm Hg) 2015-07-16 10:00:00 Mem o[facility] Maciej Respitory Rate 2015-07-16 10:00:00 [facility] Maciej Heart Rate 2015-07-16 10:00:00 [facility] Check Temperature Oral (F) 2015-07-16 10:00:00 97.9 F [facility] Maciej Height 2015-07-16 01:30:00 152.4 cm [facility] Check Weight 2015-07-16 01:30:00 [facility] Check BMI Calculated 2015-07-16 01:30:00 [facility] Check Height 2015-07-15 18:10:00 152.4 cm [facility] Maciej BMI Calculated 2015-07-15 18:10:00 [facility] Maciej Weight 2015-07-15 18:10:00 [facility] Check Weight 2015-07-05 04:10:00 [facility] Check Height 2015-07-05 04:10:00 152.4 cm [facility] Check BMI Calculated 2015-07-05 04:10:00 [facility] Maciej Temperature Oral (F) 2015-07-05 04:10:00 98.3 F [facility] Maciej Respitory Rate 2015-07-05 04:10:00 [facility] Check Heart Rate 2015-07-05 04:10:00 [facility] Check Systolic (mm Hg) 2015-07-05 04:10:00 Eleazar rial Maciej Diastolic (mm Hg) 2015-07-05 04:10:00 [facility] o[facility] Check BMI Calculated 2015-07-04 18:05:00 [facility] Maciej Weight 2015-07-04 18:05:00 [facility] Maciej Height 2015-07-04 18:05:00 152.4 cm [facility] Maciej Temperature Oral (F) 2015-07-04 18:05:00 97.9 F [facility] Check Respitory Rate 2015-07-04 18:05:00 [facility] Maciej Heart Rate 2015-07-04 18:05:00 [facility] Check Systolic (mm Hg) 2015-07-04 18:05:00 Eleazar rial Maciej Diastolic (mm Hg) 2015-07-04 18:05:00 [facility] Check BMI Calculated 2015-06-04 04:13:00 [facility] Check Weight 2015-06-04 04:13:00 [facility] Maciej Height 2015-06-04 04:13:00 152.4 cm [facility] Check Temperature Oral (F) 2015-06-04 04:13:00 98.8 F [facility] Maciej Respitory Rate 2015-06-04 04:13:00 [facility] Maciej Heart Rate 2015-06-04 04:13:00 [facility] Maciej Systolic (mm Hg) 2015-06-04 04:13:00 Eleazar rial Maciej Diastolic (mm Hg) 2015-06-04 04:13:00 [facility] o[facility] Check Systolic (mm Hg) 2015-05-18 22:47:00 Eleazar rial Check Diastolic (mm Hg) 2015-05-18 22:47:00 [facility] o[facility] Maciej Temperature Oral (F) 2015-05-18 22:47:00 96.6 F [facility] Check Heart Rate 2015-05-18 22:47:00 [facility] Maciej Respitory Rate 2015-05-18 22:47:00 [facility] Maciej Systolic (mm Hg) 2015-05-18 22:30:00 Eleazar rial Check Diastolic (mm Hg) 2015-05-18 22:30:00 [facility] Check Systolic (mm Hg) 2015-05-18 21:00:00 Eleazar rial Check Diastolic (mm Hg) 2015-05-18 21:00:00 [facility] o[facility] Maciej Temperature Oral (F) 2015-05-18 21:00:00 98.1 F [facility] Check Respitory Rate 2015-05-18 21:00:00 [facility] Check Temperature Oral (F) 2015-05-18 19:21:00 98.2 F [facility] Check Heart Rate 2015-05-18 19:21:00 [facility] Check Respitory Rate 2015-05-18 19:21:00 [facility] Check Heart Rate 2015-05-18 17:10:00 [facility] Maciej Respitory Rate 2015-05-09 20:00:00 [facility] Check Systolic (mm Hg) 2015-05-09 20:00:00 Eleazar rial Maciej Diastolic (mm Hg) 2015-05-09 20:00:00 [facility] o[facility] Maciej Temperature Oral (F) 2015-05-09 20:00:00 97.5 F [facility] Maciej Temperature Oral (F) 2015-05-09 19:10:00 97.5 F [facility] Check Systolic (mm Hg) 2015-05-09 19:10:00 Eleazar rial Check Diastolic (mm Hg) 2015-05-09 19:10:00 [facility] o[facility] Maciej Respitory Rate 2015-05-09 19:10:00 [facility] Check Systolic (mm Hg) 2015-05-09 18:41:00 Eleazar rial Check Diastolic (mm Hg) 2015-05-09 18:41:00 [facility] o[facility] Maciej Weight 2015-05-09 17:37:00 [facility] Check BMI Calculated 2015-05-09 17:37:00 [facility] Maciej Height 2015-05-09 17:37:00 152.4 cm [facility] Maciej Temperature Oral (F) 2015-05-09 17:37:00 98.9 F [facility] Maciej Respitory Rate 2015-05-09 17:37:00 [facility] Maciej Heart Rate 2015-05-09 17:37:00 [facility] Check Systolic (mm Hg) 2015-05-03 00:04:00 Eleazar rial Maciej Diastolic (mm Hg) 2015-05-03 00:04:00 Mem o[facility] Maciej Heart Rate 2015-05-03 00:04:00 [facility] Check Respitory Rate 2015-05-03 00:04:00 [facility] Check Temperature Oral (F) 2015-05-03 00:04:00 98.5 F [facility] Check Heart Rate 2015-05-02 21:17:00 [facility] Check Respitory Rate 2015-05-02 21:17:00 [facility] Check Systolic (mm Hg) 2015-05-02 21:17:00 Eleazar rial Maciej Diastolic (mm Hg) 2015-05-02 21:17:00 [facility] o[facility] Maciej Heart Rate 2015-05-02 20:24:00 [facility] Check Temperature Oral (F) 2015-05-02 20:24:00 98.1 F [facility] Check Systolic (mm Hg) 2015-05-02 20:24:00 Eleazar rial Check Diastolic (mm Hg) 2015-05-02 20:24:00 [facility] o[facility] Check Respitory Rate 2015-05-02 20:24:00 [facility] Check Temperature Oral (F) 2015-05-02 18:35:00 98.9 F [facility] Check Systolic (mm Hg) 2015-04-11 19:45:00 Eleazar rial Check Diastolic (mm Hg) 2015-04-11 19:45:00 [facility] o[facility] Maciej Temperature Oral (F) 2015-04-11 19:45:00 98.7 F [facility] Check Respitory Rate 2015-04-11 19:45:00 [facility] Check Heart Rate 2015-04-11 19:45:00 [facility] Check Weight 2015-04-11 16:35:00 [facility] Maciej Temperature Oral (F) 2015-04-11 16:35:00 98.4 F [facility] Check Systolic (mm Hg) 2015-04-11 16:35:00 Eleazar rial Check Diastolic (mm Hg) 2015-04-11 16:35:00 [facility] o[facility] Check Respitory Rate 2015-04-11 16:35:00 [facility] Check Heart Rate 2015-04-11 16:35:00 [facility] Check Systolic (mm Hg) 2015-03-30 22:06:00 Eleazar rial Check Diastolic (mm Hg) 2015-03-30 22:06:00 [facility] Check Temperature Oral (F) 2015-03-30 22:06:00 97.9 F [facility] Check Heart Rate 2015-03-30 22:06:00 [facility] Check Respitory Rate 2015-03-30 22:06:00 [facility] Check BMI Calculated 2015-03-30 19:44:00 [facility] Check Height 2015-03-30 19:44:00 152.4 cm [facility] Check Systolic (mm Hg) 2015-03-30 19:44:00 Eleazar rial Maciej Diastolic (mm Hg) 2015-03-30 19:44:00 Mem o[facility] Check Respitory Rate 2015-03-30 19:44:00 [facility] Maciej Heart Rate 2015-03-30 19:44:00 [facility] Check Weight 2015-03-30 19:44:00 [facility] Check Temperature Oral (F) 2015-03-30 19:44:00 97.9 F [facility] Check Respitory Rate 2015-03-24 21:57:00 [facility] Check Temperature Oral (F) 2015-03-24 21:57:00 97.9 F [facility] Check Heart Rate 2015-03-24 21:57:00 [facility] Maciej Systolic (mm Hg) 2015-03-24 21:57:00 Eleazar rial Maciej Diastolic (mm Hg) 2015-03-24 21:57:00 Mem o[facility] Maciej Heart Rate 2015-03-24 17:28:00 [facility] Check Temperature Oral (F) 2015-03-24 17:28:00 98.8 F [facility] Check Respitory Rate 2015-03-24 17:28:00 [facility] Maciej Systolic (mm Hg) 2015-03-24 17:28:00 Eleazar rial Check Diastolic (mm Hg) 2015-03-24 17:28:00 [facility] Check Heart Rate 2015-03-24 13:08:00 [facility] Check Temperature Oral (F) 2015-03-24 13:08:00 98.4 F [facility] Check Respitory Rate 2015-03-24 13:08:00 [facility] Check Systolic (mm Hg) 2015-03-24 13:08:00 Eleazar rial Maciej Diastolic (mm Hg) 2015-03-24 13:08:00 [facility] o[facility] Check BMI Calculated 2015-03-22 01:41:00 [facility] Maciej Weight 2015-03-22 01:41:00 [facility] Check Height 2015-03-22 01:41:00 152.4 cm [facility] Check BMI Calculated 2015-03-21 18:42:00 [facility] Maciej Weight 2015-03-21 18:42:00 [facility] Maciej Height 2015-03-21 18:42:00 152.4 cm [facility] Maciej Systolic (mm Hg) 2015-03-11 22:39:00 Eleazar rial Check Diastolic (mm Hg) 2015-03-11 22:39:00 [facility] o[facility] Maciej Respitory Rate 2015-03-11 22:39:00 [facility] Maciej Heart Rate 2015-03-11 22:39:00 [facility] Check Temperature Oral (F) 2015-03-11 22:39:00 98.1 F [facility] Check BMI Calculated 2015-03-11 19:44:00 [facility] Maciej Weight 2015-03-11 19:44:00 [facility] Check Systolic (mm Hg) 2015-03-11 19:44:00 Eleazar rial Check Diastolic (mm Hg) 2015-03-11 19:44:00 [facility] o[facility] Maciej Temperature Oral (F) 2015-03-11 19:44:00 97.9 F [facility] Maciej Heart Rate 2015-03-11 19:44:00 [facility] Check Respitory Rate 2015-03-11 19:44:00 [facility] Check Height 2015-03-11 19:44:00 152.4 cm [facility] Check Temperature Oral (F) 2015-03-05 10:15:00 97.9 F [facility] Check Systolic (mm Hg) 2015-03-05 10:15:00 Eleazar rial Check Diastolic (mm Hg) 2015-03-05 10:15:00 [facility] o[facility] Maciej Respitory Rate 2015-03-05 10:15:00 [facility] Maciej Respitory Rate 2015-03-05 09:53:00 [facility] Check Temperature Oral (F) 2015-03-05 09:53:00 97.8 F [facility] Check Systolic (mm Hg) 2015-03-05 09:53:00 Eleazar rial Check Diastolic (mm Hg) 2015-03-05 09:53:00 [facility] Check Respitory Rate 2015-03-05 06:30:00 [facility] Check Systolic (mm Hg) 2015-03-05 06:30:00 Eleazar rial Maciej Diastolic (mm Hg) 2015-03-05 06:30:00 [facility] o[facility] Maciej Temperature Oral (F) 2015-03-05 06:20:00 97.7 F [facility] Check Heart Rate 2015-03-05 06:20:00 [facility] Maciej Heart Rate 2015-03-05 05:46:00 [facility] Maciej Height 2015-03-05 05:46:00 152.4 cm [facility] BMI Calculated 2015-03-05 05:46:00 [facility] Check Weight 2015-03-05 05:46:00 [facility] Maciej Systolic (mm Hg) 2015-02-25 20:55:00 Eleazar rial Check Diastolic (mm Hg) 2015-02-25 20:55:00 [facility] Check Temperature Oral (F) 2015-02-25 20:55:00 97.9 F [facility] Check Heart Rate 2015-02-25 20:55:00 [facility] Maciej Respitory Rate 2015-02-25 20:55:00 [facility] Check Temperature Oral (F) 2015-02-25 17:18:00 98 F [facility] Maciej Heart Rate 2015-02-25 17:18:00 [facility]iej Respitory Rate 2015-02-25 17:18:00 [facility] Maciej Systolic (mm Hg) 2015-02-25 17:18:00 Eleazar rial Maciej Diastolic (mm Hg) 2015-02-25 17:18:00 [facility] Check Systolic (mm Hg) 2015-02-25 12:00:00 Eleazar rial Check Diastolic (mm Hg) 2015-02-25 12:00:00 [facility] Maciej Respitory Rate 2015-02-25 12:00:00 [facility] Check Heart Rate 2015-02-25 12:00:00 [facility] Maciej Temperature Oral (F) 2015-02-25 12:00:00 97.8 F [facility] Check Height 2015-02-24 16:11:00 152.4 cm [facility] Check BMI Calculated 2015-02-24 16:11:00 [facility] Check Weight 2015-02-24 16:11:00 [facility] Maciej Heart Rate 2015-02-18 20:17:00 [facility] Maciej Temperature Oral (F) 2015-02-18 20:17:00 97.3 F [facility]iej Systolic (mm Hg) 2015-02-18 20:17:00 Eleazar rial Check Diastolic (mm Hg) 2015-02-18 20:17:00 [facility] Maciej Respitory Rate 2015-02-18 20:17:00 [facility] Maciej Heart Rate 2015-02-18 16:13:00 [facility] Maciej Respitory Rate 2015-02-18 16:13:00 [facility] Check Systolic (mm Hg) 2015-02-18 16:13:00 Eleazar rial Check Diastolic (mm Hg) 2015-02-18 16:13:00 [facility] Check Temperature Oral (F) 2015-02-18 16:13:00 97.5 F [facility] Maciej Temperature Oral (F) 2015-02-18 12:19:00 97.9 F [facility]iej Systolic (mm Hg) 2015-02-18 12:19:00 Eleazar rial Maciej Diastolic (mm Hg) 2015-02-18 12:19:00 [facility] Maciej Respitory Rate 2015-02-18 12:19:00 [facility] Check Heart Rate 2015-02-18 12:19:00 [facility] Check Weight 2015-02-17 02:30:00 [facility] Check Height 2015-02-17 02:30:00 152.4 cm [facility] BMI Calculated 2015-02-17 02:30:00 [facility] Check Weight 2015-02-16 20:42:00 [facility] Check BMI Calculated 2015-02-16 20:42:00 [facility] Maciej Height 2015-02-16 20:42:00 152.4 cm [facility] Check Respitory Rate 2013-12-25 19:27:00 [facility] Maciej Heart Rate 2013-12-25 19:27:00 [facility] Check Diastolic (mm Hg) 2013-12-25 19:27:00 [facility] Check Systolic (mm Hg) 2013-12-25 19:27:00 Eleazar rial Maciej Temperature Oral (F) 2013-12-25 19:27:00 98.3 F [facility] Check BMI Calculated 2013-12-25 16:48:00 [facility] Maciej Weight 2013-12-25 16:48:00 [facility] Maciej Height 2013-12-25 16:48:00 152.4 cm [facility] Check Respitory Rate 2013-12-25 16:48:00 [facility] Check Heart Rate 2013-12-25 16:48:00 [facility] Maciej Diastolic (mm Hg) 2013-12-25 16:48:00 [facility] Check Systolic (mm Hg) 2013-12-25 16:48:00 Eleazar rial Check Temperature Oral (F) 2013-12-25 16:48:00 98.8 F [facility] Check Heart Rate 2013-12-23 00:27:00 [facility] Maciej Systolic (mm Hg) 2013-12-23 00:27:00 Eleazar rial Maciej Respitory Rate 2013-12-23 00:27:00 [facility] Maciej Temperature Oral (F) 2013-12-23 00:27:00 98.3 F [facility]iej Diastolic (mm Hg) 2013-12-23 00:27:00 [facility] Check Diastolic (mm Hg) 2013-12-22 23:06:00 [facility] Check Temperature Oral (F) 2013-12-22 23:06:00 98.4 F [facility]iej Systolic (mm Hg) 2013-12-22 23:06:00 Eleazar [facility] Respitory Rate 2013-12-22 23:06:00 [facility] Check Heart Rate 2013-12-22 23:06:00 [facility] Weight 2013-12-22 20:46:00 [facility] Check Temperature Oral (F) 2013-12-22 20:46:00 98.7 F [facility] Systolic (mm Hg) 2013-12-22 20:46:00 [facility] Check Diastolic (mm Hg) 2013-12-22 20:46:00 Mem o[facility] Check Respitory Rate 2013-12-22 20:46:00 [facility] Check Heart Rate 2013-12-22 20:46:00 [facility] Check Diastolic (mm Hg) 2013-12-17 20:30:00 [facility] o[facility] Check Respitory Rate 2013-12-17 20:30:00 [facility] Systolic (mm Hg) 2013-12-17 20:30:00 [facility] Check Systolic (mm Hg) 2013-12-17 19:06:00 [facility] Diastolic (mm Hg) 2013-12-17 19:06:00 Mem o[facility] Check Respitory Rate 2013-12-17 19:06:00 [facility] Systolic (mm Hg) 2013-12-17 18:54:00 [facility] Diastolic (mm Hg) 2013-12-17 18:54:00 [facility] o[facility] Check Temperature Oral (F) 2013-12-17 17:09:00 98.1 F [facility] Respitory Rate 2013-12-17 16:50:00 [facility] Check Temperature Oral (F) 2013-12-17 09:00:00 97.1 F [facility] Height 2013-12-17 02:58:00 152.4 cm [facility] Weight 2013-12-17 02:58:00 [facility] BMI Calculated 2013-12-17 02:58:00 [facility] Check Temperature Oral (F) 2013-12-17 02:55:00 98.1 F [facility] Height 2013-12-16 17:19:00 152.4 cm [facility] BMI Calculated 2013-12-16 17:19:00 [facility] Check Weight 2013-12-16 17:19:00 [facility] Heart Rate 2013-12-16 17:19:00 [facility] Check Temperature Oral (F) 2013-11-08 21:00:00 98 F [facility] Diastolic (mm Hg) 2013-11-08 21:00:00 Mem orial Check Respitory Rate 2013-11-08 21:00:00 [facility] Systolic (mm Hg) 2013-11-08 21:00:00 Eleazar rial Check Temperature Oral (F) 2013-11-08 19:13:00 97.6 F [facility] Diastolic (mm Hg) 2013-11-08 19:13:00 [facility] Systolic (mm Hg) 2013-11-08 19:13:00 Eleazar [facility] Respitory Rate 2013-11-08 19:13:00 [facility] al Check Systolic (mm Hg) 2013-11-08 16:18:00 Eleazar rial Check Respitory Rate 2013-11-08 16:18:00 [facility] Diastolic (mm Hg) 2013-11-08 16:18:00 [facility] Temperature Oral (F) 2013-11-08 11:34:00 99.0 F [facility] Heart Rate 2013-11-08 11:34:00 [facility] Check Heart Rate 2013-11-08 08:04:00 [facility] Check BMI Calculated 2013-11-08 04:51:00 [facility] Height 2013-11-08 04:51:00 152.4 cm [facility] Check Weight 2013-11-08 04:51:00 [facility] Check Heart Rate 2013-11-08 04:51:00 [facility] Check Procedures Procedure Date / Time Performing Clinician Source Performed Cardiac catheterization [facility] procedure Stent placement<sup>1</sup> Eleazar rial [facility] Plan of Care Planned Activity Planned Date Details Comments Source Future Scheduled Test 2021-05-29 IMM Influenza Seasonal [facility] 00:00:00 May to October (>/= 19 yrs) [code = IMM Influenza Seasonal May to October (>/= 19 yrs)] Future Scheduled Test 2015 IMM Pneumococcal Age 65 [facility] 00:00:00 and Up [code = IMM Pneumococcal Age 65 and Up] Future Scheduled Test 2000 Screening for malignant [facility] 00:00:00 neoplasm of colon (procedure) [code = 710112763] Future Scheduled Test 1990 Breast Cancer Scrn [facility] 00:00:00 (Yearly) [code = Breast Cancer Scrn (Yearly)] Future Scheduled Test 1966 COVID-19 Vaccine (1) [facility] 00:00:00 [code = COVID-19 Vaccine (1)] Encounters Start End Encounter Admission Attending Care Care Encounter Source Date/Time Date/Time Type Type Clinicians Facility Department ID 2020-10-15 2020-10-15 Emergency [facility], [facility]–1983 [id number] 02:02:00 04:45:00 Ciaran Freitas [id number] [place] [id number] [place] [id number] 2020-01-21 2020-01-21 Outpatient E [facility] 05:31:00 05:31:00 2019-10-15 2019-10-15 Emergency E [facility] [id number] [facility] 13:12:00 13:12:00 2019-05-20 2019-05-20 Emergency E [facility] 15:19:00 15:19:00 2019-02-25 2019-02-25 Emergency E [facility] 7510 [facility] 10:56:00 10:56:00 2018-08-21 2018-08-21 Emergency [facility] [id number] [place] 18:32:58 18:32:58 Health 2018-08-21 2018-08-21 Emergency [facility] [id number] [place] 17:47:59 17:47:59 Health 2018-08-21 2018-08-21 Emergency [facility] [id number] [place] 16:16:06 16:16:06 [facility] 2018-08-16 2018-08-16 Emergency [facility] [id number] [place] 22:04:00 22:04:00 [facility] 2018-08-16 2018-08-16 Emergency [facility] [id number] [place] 21:21:42 21:21:42 [facility] 2018-05-18 2018-05-18 Emergency [facility] MED [id number] [place] 14:51:52 14:51:52 [facility] 2018-03-08 2018-03-08 Emergency [facility] MED [id number] [place] 15:12:17 15:12:17 [facility] 2018-01-16 2018-01-16 Emergency [facility] MED [id number] [place] 17:53:03 17:53:03 [facility] 2018-01-16 2018-01-16 Emergency [facility] [id number] [place] 00:00:00 00:00:00 [facility] 2018-01-16 2018-01-16 Outpatient [facility] [id number] [place] 00:00:00 00:00:00 [facility] 2017-11-11 2017-11-11 Emergency E [facility] [id number] [facility] 16:37:00 16:37:00 [facility] 2017-01-19 2017-01-19 Outpatient Patel, MHSE MHSE [id number] 12:18:00 18:37:00 Mac Bnod 2017-01-16 2017-01-16 Outpatient Chayito, [facility] [id number] 18:22:00 21:34:00 Jl 33 [place] 2016-11-28 2016-11-28 Outpatient Ace, [facility] [id number] 19:17:00 23:13:00 Jason 32 Melody 2016-11-06 2016-11-06 Outpatient Elijah [facility]PL [id number] 17:34:00 21:03:00 Zaki 31 [place] 2016-10-10 2016-10-11 Outpatient Cinthya, [facility] [id number] 11:45:00 13:54:00 Jessika Jacek 30 2016-09-14 2016-09-15 Outpatient Emmanuel, [facility]PL [id number] 21:19:00 00:56:00 Nando Lozada 29 2016-04-13 2016-04-14 Outpatient Frandy [facility] [id number] 21:11:00 01:37:00 Jose Tripathi 2016-03-11 2016-03-12 Outpatient Mihai, [facility] [id number] 14:41:00 15:25:00 Andrea Marino 2016-03-05 2016-03-05 Outpatient Rina, [facility] [id number] 16:54:00 21:21:00 Rachele 26 [place] 2016-02-29 2016-02-29 Outpatient Bayron, [facility] PL [id number] 17:25:00 20:29:00 Good 25 2015-09-03 2015-09-05 Outpatient Mateus Dixon [facility] [id number] 21:30:00 10:26:00 B 24 2015-07-15 2015-07-16 Outpatient Anjel, [facility] [id number] 12:00:00 15:30:00 Janet 23 2015-07-04 2015-07-05 Outpatient Dick, [facility] [id number] 22:07:00 01:09:00 Habacuc 22 Breen 2015-07-04 2015-07-04 Outpatient Recio, [facility] [id number] 11:57:00 14:54:00 Maribel Berkowitz 21 2015-06-03 2015-06-04 Outpatient Ware, [facility] [id number] 23:00:00 02:09:00 Luzmaria Pisano 2015-05-18 2015-05-18 Outpatient Jennifer, [facility] [id number] 11:55:00 18:04:00 Indira S 19 2015-05-09 2015-05-09 Outpatient Rileypaola, [facility] [id number] 12:15:00 15:10:00 Indira S 18 2015-05-02 2015-05-02 Outpatient Jennifer, [facility] [id number] 13:18:00 19:05:00 Indira S 17 2015-04-11 2015-04-11 Outpatient Yovani [facility] [id number] 11:25:00 14:47:00 Gilmar Giordano 16 2015-03-30 2015-03-30 Outpatient Charito, [facility] [id number] 14:39:00 17:11:00 Isatu Ayala 2015-03-21 2015-03-24 Outpatient Richmond, [facility] [id number] 13:24:00 17:30:00 Catarino 14 Blaine 2015-03-11 2015-03-11 Outpatient Dick, [facility] [id number] 14:43:00 17:41:00 Habacuc 13 Breen 2015-03-05 2015-03-05 Outpatient Tata Rushing [facility] [id number] 00:43:00 05:21:00 Martell 12 2015-02-24 2015-02-25 Outpatient Dixon, [facility] [id number] 10:34:00 20:14:00 Tucker 11 2015-02-16 2015-02-18 Outpatient Thu, [facility] [id number] 15:36:00 16:00:00 Kalneerua 10 Mary Katedonna 2013-12-25 2013-12-25 Outpatient Dorothea, [facility] [id number] 11:37:00 14:52:00 Rishabh E 09 2013-12-22 2013-12-22 Outpatient Nba, [facility] [id number] 15:43:00 19:29:00 Jann 08 Jl 2013-12-16 2013-12-17 Outpatient Beth, [facility] [id number] 12:18:00 17:45:00 Alvarez 07 2013-11-07 2013-11-08 Outpatient Sakatya, [facility] [id number] 23:50:00 18:00:00 Dustin Results Test Description [...] Negative (01/19/17 Me morial 19:21:00 2:21 PM) Check URINE AND STOOL 2017-01-19 Negative (01/19/17 Me morial 19:21:00 2:21 PM) [facility] URINE AND STOOL 2017-01-19 Negative (01/19/17 Me morial 19:21:00 2:21 PM) Check URINE AND STOOL 2017-01-19 1 [facility] 19:21:00 Check URINE AND STOOL 2017-01-19 1 [facility] 19:21:00 [facility] URINE AND STOOL 2017-01-19 7.0 [facility] 19:21:00 Check URINE AND STOOL 2017-01-19 1.008 [facility] 19:21:00 Check URINE AND STOOL 2017-01-19 Clear (01/19/17 2:21 [facility] 19:21:00 PM) [facility] CARDIAC ENZYMES 2017-01-19 3.0 [facility] 18:07:00 Check CARDIAC ENZYMES 2017-01-19 <0.02 [facility] 18:07:00 Check CHEM PANEL 2017-01-19 231 [facility] 18:07:00 [facility] CHEM PANEL 2017-01-19 9 [facility] 18:07:00 Check CHEM PANEL 2017-01-19 8.4 [facility] 18:07:00 [facility] CHEM PANEL 2017-01-19 1.0 [facility] 18:07:00 Check CHEM PANEL 2017-01-19 3.6 [facility] 18:07:00 [facility] CHEM PANEL 2017-01-19 7 [facility] 18:07:00 Check CHEM PANEL 2017-01-19 32 [facility] 18:07:00 Check CHEM PANEL 2017-01-19 104 [facility] 18:07:00 [facility] CHEM PANEL 2017-01-19 3.4 [facility] 18:07:00 Check CHEM PANEL 2017-01-19 141 [facility] 18:07:00 Check CHEM PANEL 2017-01-19 0.79 [facility] 18:07:00 Check CHEM PANEL 2017-01-19 3.6 [facility] 18:07:00 [facility] CHEM PANEL 2017-01-19 9.1 [facility] 18:07:00 Check CHEM PANEL 2017-01-19 25 [facility] 18:07:00 [facility] CHEM PANEL 2017-01-19 7.2 [facility] 18:07:00 Check CHEM PANEL 2017-01-19 1.1 [facility] 18:07:00 [facility] CHEM PANEL 2017-01-19 111 [facility] 18:07:00 [facility] CHEM PANEL 2017-01-19 31 [facility] 18:07:00 Check CHEM PANEL 2017-01-19 90 [facility] 18:07:00 [facility] CHEM PANEL 2017-01-19 73 [facility] 18:07:00 Check CHEM PANEL 2017-01-19 75 [facility] 18:07:00 [facility] HEMATOLOGY 2017-01-19 18:07:00 Test Item Value Reference Range Interpretation Comme nts PTT (test code = PTT) 31.3 s 22.9-35.8 [facility] FcvxfezOXNJZHHSTY8583-35-26 18:07:008.5[facility]ann[facility] 2017-01-19 18:07:0042.0[facility] YktrcrjFEBRXLJUQL1766-37-94 18:07:004.92[facility] MdykkcaYOTYMIXJAT3791-26-83 18:07:0014.4[facility] CpvjodyOAFXXXLOHY7533-93-45 18:07:0014.2[facility] IxukmtqIHWZYABYNE0535-50-75 18:07:77196Oxonbykj Maciej JDAJFQLXCY0114-68-41 18:07:0034.2[facility] BlmgvgsDUDRJSKPCA0037-50-03 18:07:00 Test Item Value Reference Range Interpretation Comments MCH (test code = MCH) 29.2 pg 27.0-31.0 [facility] IcjggkpTIPWESHBKG8271-48-88 18:07:0085.5[facility] HermannHEMATOLOGY 2017-01-19 18:07:007.7[facility] NxfhdcrADEGSZKVPU4906-31-56 18:07:00 Test Item Value Reference Range Interpretation Comments PT (test code = PT) 13.7 s 12.0-14.7 [facility] WgvgxdnLZEQAYUHZD5252-15-90 18:07:001.03[facility]annHEMATOLOGY 2017-01-19 18:07:000.3[facility] PumtbieNKFZSJDBXX4369-78-87 18:07:0068.3[facility] RqgbhosHWXYMBHJIL9035-33-47 18:07:000.6[facility] TrspyfpXCDFSPYMXB9763-71-54 18:07:005.3[facility] ZeefyhfJFHDLXGYVN6634-95-00 18:07:004.5[facility] TZSAKLKQXB7995-55-26 18:07:000.6[facility] MwzmiqjPWTBOVDSIY7063-47-34 18:07:001.4 [facility] KspwgmgYEITOHPQFN1950 18:07:007.8[facility] HermannHEMATOLOGY 2017-01-19 18:07:0018.8[facility]annDRUG YHNFWU6288-75-50 00:23:00Positive *ABN*(01/16/17 7:23 PM)[facility] LATEWE9814-31-55 00:23:00Negative *NA*(01/16/17 7:23 PM)[facility] JTKZQH3838-60-58 00:23:00Negative *NA*(01/16/17 7:23 PM)[facility] LRUZBE8608-11-20 00:23:00Negative *NA*(01/16/17 7:23 PM)[facility] BFUBZN5075-74-29 00:23:00See Note (01/16/17 7:23 PM)[facility] EFBSGR4991-67-13 00:23:00Negative *NA*(01/16/17 7:23 PM)[facility] LFFRZO4652-86-77 00:23:00Negative *NA*(01/16/17 7:23 PM)[facility] KPWUUH7930-18-95 00:23:00Negative *NA*(01/16/17 7:23 PM)[facility] AND BNORP4377-39-82 00:23:00Negative *NA*(01/16/17 7:23 PM)[facility] BZDWX3951-36-72 00:23:00Negative *NA*(01/16/17 7:23 PM)[facility] XVMAR9723-20-73 00:23:00Negative (01/16/17 7:23 PM)[facility] NEVAC0997-54-54 00:23:00Negative (01/16/17 7:23 PM)[facility] FSWYF3298-36-39 00:23:00Negative (01/16/17 7:23 PM)[facility] PQRPM8657-73-86 00:23:001.0[facility] AND XRKIK4178-63-16 00:23:00Negative (01/16/17 7:23 PM)[facility] MZAUK0644-22-61 00:23:00Slight Cloudy (01/16/17 7:23 PM)[facility] VBLBW4613-82-66 00:23:00 Test Item Value Reference Range Interpretation Comments UA Spec Grav (test code = UA Spec 1.007 1 Grav) [facility] RREUB9930-05-04 00:23:00 Test Item Value Reference Range Interpretation Comments UA pH (test code = UA pH) 6.0 1 5.0-8.0 [facility] EGFNV5633-04-87 00:23:00Negative (01/16/17 7:23 PM) [facility] GSQDT8512-87-27 00:23:00Yellow *NA*(01/16/17 7:23 PM) [facility]annCARDIAC UZCHHTH4430-15-05 23:57:00<0.02[facility] CARDIAC KOYWDJW3322-26-37 23:57:002.0[facility] HermannCARDIAC QZLRYUJ2794-60-45 23:57:32419Atjaeavw HermannCARDIAC OTPDZFB0193-64-05 23:57:001.0[facility] Check CHEM VLXTG3144-79-17 23:57:0073[facility] HermannCHEM UDJMS6958-68-94 23:57:0029 [facility] HermannCHEM BVZQE0110-98-12 23:57:40549Hidkoont HermannCHEM PANEL 2017-01-16 23:57:99844Pcncjlso HermannCHEM JYBSX6705-24-00 23:57:0015[facility] HermannCHEM LYEGK7860-02-79 23:57:0011.0[facility] HermannCHEM XNNVA4532-93-72 23:57:0016[facility] HermannCHEM NOYLW4539-46-54 23:57:009.4[facility] HermannCHEM RWCQH4198-91-61 23:57:000.94[facility] HermannCHEM NYQCY3707-15-25 23:57:75467 [facility] HermannCHEM WDKQN8867-09-00 23:57:004.0[facility] HermannCHEM PANEL 2017-01-16 23:57:003.6[facility] HermannCHEM GHTNM5984-62-21 23:57:0024[facility] HermannCHEM ATXBX3979-32-68 23:57:000.6[facility] HermannCHEM NNCHM2082-14-16 23:57:84010Dvwbenaa HermannCHEM OLBHN5825-86-14 23:57:0029[facility] HermannCHEM TVHYO5658-43-61 23:57:000.9[facility] HermannCHEM LFKRM5396-98-36 23:57:003.9 [facility]annCHEM QBEHR8670-93-40 23:57:007.5[facility] HermannHEMATOLOGY 2017-01-16 23:57:0014.6[facility] WepyqzkARWIWLYDWC7996-30-12 23:57:0042.7[facility]orial VraxkhqDZNGFJTJBZ7352-53-37 23:57:0034.2[facility] RfxqzolLLDCQTOABW2461-75-60 23:57:0085.3[facility] YatovnlFLRGAQGNNK3396-79-18 23:57:00 Test Item Value Reference Range Interpretation Comments MCH (test code = MCH) 29.2 pg 27.0-31.0 Memorial OzkjwllFDCUZPNBJM0063-50-39 23:57:0014.3[facility] HermannHEMATOLOGY 2017-01-16 23:57:77193Vspqhnpl DtzkekoNECLHZQIFT8279-01-77 23:57:008.0[facility] JzzgdblJYNHJLDYVF6349-87-26 23:57:006.6[facility] YfdkimsQKZVSLGSWL6815-29-99 23:57:005.00[facility] YduzvdhYGHZJFFHPP5828-31-74 23:57:000.8[facility] Check UVVQEBVBHQ3783-40-33 23:57:004.0[facility]orial LevfbiuLINJFJLVZV7622-53-37 23:57:000.5 Memorial IxxzecvEBVIPGKRJS0403-49-55 23:57:000.1[facility] HermannHEMATOLOGY 2017-01-16 23:57:001.8[facility]orial GtkjaycGUZSJNHIIK6340-12-22 23:57:000.2[facility] VuimnabSHMUYMCPFE7289-72-56 23:57:0060.6[facility]orial EzkmdwdAGSHKGHSBQ1824-76-83 23:57:008.3[facility]orial QlicvnwMPAOZQIUYD2639-58-10 23:57:003.5[facility] Check MXBNNNHBHA9819-93-04 23:57:0026.8[facility]annURINE AND VEXUQ7649-88-71 02:18:00Negative *NA*(11/28/16 9:18 PM)[facility] AND MCESL1548-65-15 02:18:00Negative (11/28/16 9:18 PM)[facility] AND PLCRH8928-36-04 02:18:001.0[facility]annUR[facility] AND MCFFA8191-71-57 02:18:00Negative (11/28/16 9:18 PM)[facility] AND JWIQI4319-73-71 02:18:00Negative *NA*(11/28/16 9:18 PM)[facility] AND XMKBQ7109-85-47 02:18:00Moderate *ABN*(11/28/16 9:18 PM)[facility] AND JVBQX7654-54-90 02:18:00Yellow *NA*(11/28/16 9:18 PM)[facility] DUYMP4687-21-01 02:18:00 Test Item Value Reference Range Interpretation Comments UA pH (test code = UA pH) 6.0 1 5.0-8.0 [facility] MVNNJ3514-27-16 02:18:00Negative (11/28/16 9:18 PM) [facility] LIORA2105-40-10 02:18:00Negative (11/28/16 9:18 PM) [facility] SLFCM4539-82-66 02:18:00<=1.005 *NA*(11/28/16 9:18 PM)[facility] QZVAX3663-51-25 02:18:00Clear (11/28/16 9:18 PM) [facility]annCARDIAC LYUBBPW9372-43-53 01:37:00<0.02[facility] Check CARDIAC LPSOWQT6000-41-40 01:37:001.3[facility] HermannCARDIAC OAVBVUV6925-18-40 01:37:0089[facility] HermannCARDIAC OOQPIYK8696-60-24 01:37:001.5[facility] CHEM SXZZN2008-81-52 01:37:003.9[facility] HermannCHEM ZQDSC4432-39-95 01:37:0050 [facility] HermannCHEM LLYVS7946-99-09 01:37:000.9[facility] HermannCHEM PANEL 2016-11-29 01:37:0024[facility] HermannCHEM DTIHZ5916-83-74 01:37:003.7[facility] HermannCHEM TRQOL9269-23-71 01:37:0089[facility] HermannCHEM ODJVY1139-04-94 01:37:27038Evcctirv HermannCHEM DSOFV6556-39-46 01:37:0010[facility] HermannCHEM ZDETL9752-40-09 01:37:001.28[facility] HermannCHEM WRSVS7918-64-13 01:37:0030 [facility] HermannCHEM WFUDY4697-59-76 01:37:28329Doeppfhk HermannCHEM PANEL 2016-11-29 01:37:009.5[facility] HermannCHEM KULJC2614-00-35 01:37:009.5[facility] HermannCHEM PPVZR6384-17-77 01:37:008[facility] HermannCHEM DENSK1928-46-54 01:37:000.7[facility] HermannCHEM TVEOT8112-81-40 01:37:10665Gfaszzdf HermannCHEM DANZE7888-97-79 01:37:003.5[facility] HermannCHEM ZENAN4033-93-02 01:37:007.6 [facility] HermannCHEM XSYFL9092-61-08 01:37:0014[facility] HermannHEMATOLOGY 2016-11-29 01:10:0033.4[facility] KyxvvqyRJKCMMSXWA3919-23-92 01:10:51594Uawqodmn JlwnvbkPRAECGMKPL5409-59-37 01:10:0014.7[facility] LpeoroaKRCOMWNYHE5184-26-18 01:10:008.1[facility] WjyuidkCPVARYDHYH2047-77-26 01:10:005.34[facility] Check WFZIXIEKDQ1016-80-79 01:10:0015.5[facility] EdnnsrjVHDRBEDSYD3805-76-67 01:10:00 87.0[facility]orial LdiwwmmQPMUEUZJIM7325-21-21 01:10:0046.4[facility] HermannHEMATOLOGY 2016-11-29 01:10:00 Test Item Value Reference Range Interpretation Comments MCH (test code = MCH) 29.1 pg 27.0-31.0 [facility] KwinolsWEUEMQOKUR8917-63-13 01:10:008.0[facility] HermannHEMATOLOGY 2016-11-29 01:10:000.1[facility] OjrjgnoCFDJLECIYH5379-66-36 01:10:002.0[facility] KjdrjnnHGIQDXVNIZ3544-98-78 01:10:005.1[facility] WsfxaczUKUTMPQEGJ6624-82-50 01:10:000.2[facility]orial RttkipaSMXUYTXIAC2012-74-48 01:10:000.8[facility] Check OPJQWOGFXV2329-39-34 01:10:0063.2[facility] IyxgrzwJTHSSXJEDD4855-60-26 01:10:00 24.3[facility]orial GqoqebeUEOMBOEZNT1272-19-63 01:10:002.1[facility] HermannHEMATOLOGY 2016-11-29 01:10:009.6[facility] ZrtgyjuIQXIWZYYSY4309-31-18 01:10:000.8[facility] HermannVIRAL - FPGVCXTG7301-64-47 01:10:00Negative (11/28/16 8:10 PM)[facility] HermannVIRAL - RCRHLBWJ2815-70-83 01:10:00Negative (11/28/16 8:10 PM)[facility] HermannCARDIAC VHNSMDM8091-43-22 01:15:001.3[facility] HermannCARDIAC ENZYMES 2016-11-07 01:15:00<0.02[facility] HermannCARDIAC HKUDCDB2351-19-01 01:15:001.9 [facility] HermannCARDIAC DLMEPHV5370-44-45 01:15:52383Qjmqdxit HermannCHEM PANEL 2016-11-07 01:15:0077Mem[facility] HermannCHEM SXSRS8858-54-37 01:15:0017[facility] HermannCHEM OFUMM6909-70-95 01:15:006.8[facility] HermannCHEM ZTBCE9363-81-62 01:15:008.5[facility] HermannCHEM UQMVE5189-22-05 01:15:000.8[facility] HermannCHEM EHOKK8504-79-47 01:15:89003Psliotly HermannCHEM PMVSD6565-76-00 01:15:0031 [facility]annCHEM NAMSM1228-88-03 01:15:003.1[facility] HermannCHEM PANEL 2016-11-07 01:15:000.90[facility] HermannCHEM NKJQY1814-73-06 01:15:25665Ysnkqivr HermannCHEM XJDFN8717-88-61 01:15:0012[facility] HermannCHEM MRYEK5474-64-58 01:15:0096[facility] HermannCHEM XHLSB5658-61-90 01:15:003.3[facility] HermannCHEM LWUTR1622-30-59 01:15:0076[facility] HermannCHEM EQGJV7390-03-97 01:15:0020 [facility] HermannCHEM YGNCP7586-98-03 01:15:003.5[facility] HermannCHEM PANEL 2016-11-07 01:15:000.9[facility] HermannCHEM RJZXM0883-81-61 01:15:0010.1[facility] HermannCHEM IKAQI1731-97-35 01:15:0013[facility] ZsexqgwYUEZZVMCRA5198-90-79 01:15:002.8[facility] IksqjraPEZMOMCEGP6567-31-64 01:15:000.2[facility] Check RCEJOIBNTK6936-39-80 01:15:000.1[facility] FmddzufZCPRPPOFXR7118-30-35 01:15:000.7 Memorial UsvwrpzKUMKWZKXMT1789-76-11 01:15:000.8[facility] HermannHEMATOLOGY 2016-11-07 01:15:004.5[facility] ItmuwqoUDKFGORAZT3864-96-52 01:15:002.2[facility] AhfamvsYCCVDLUADE0865-46-48 01:15:0058.5[facility] UugjoqeGPNLWXGHCS0960-53-29 01:15:0028.8[facility]orial NcocttqITWMHXZTPV5234-92-76 01:15:009.1[facility] FKTDPOHXAK0686-23-97 01:15:90069Mdwevfba BjypudrBJAXFEASIO5378-52-77 01:15:00 14.3[facility] HicmzukZJSOSKYLXL8755-24-44 01:15:008.1[facility]annHEMATOLOGY 2016-11-07 01:15:007.7[facility] XzuuffiBOVRUXDFCU0197-96-63 01:15:0013.1[facility] KpgsgmzHUINOSCIFA2226-22-43 01:15:004.48[facility] WpfmcboHQQTXKZPRD8481-21-84 01:15:00 Test Item Value Reference Range Interpretation Comments MCH (test code = MCH) 29.3 pg 27.0-31.0 [facility] BpohizbOQRGNYJRFG7447-18-20 01:15:0039.1[facility]annHEMATOLOGY 2016-11-07 01:15:0087.3[facility] XhutsvhBBEYTUJVTM5800-04-74 01:15:0033.6[facility]annDRUG LZNUYN3620-53-47 11:24:00Negative *NA*(10/11/16 5:24 AM)[facility] RKOGSB4767-74-29 11:24:00Negative *NA*(10/11/16 5:24 AM)[facility] ZAXHWG6553-98-14 11:24:00Negative *NA*(10/11/16 5:24 AM)[facility] LKHPKZ7151-04-68 11:24:00Negative *NA*(10/11/16 5:24 AM)[facility]DR[facility] NHARBC9436-19-49 11:24:00Positive *ABN*(10/11/16 5:24 AM)[facility]DR[facility] LIKWOY1797-30-98 11:24:00See Note (10/11/16 5:24 AM)[facility] DRUG PCAVXY9257-78-57 11:24:00Negative *NA*(10/11/16 5:24 AM)[facility] JXBTAI7704-95-16 11:24:00Negative *NA*(10/11/16 5:24 AM)[facility]annCARDIAC IJZMIWK9417-96-70 09:58:00<0.02[facility] BxnikzaTLWIHSXWBN1673-46-99 09:58:00 0.4[facility] PxxjblcOGRDBCMAWT0790-47-86 09:58:000.1[facility]annHEMATOLOGY 2016-10-11 09:58:006.3[facility] QifkmpgHRJUKOYJXF5775-55-08 09:58:001.0[facility] MtnxycaNDCSYPSPCW7592-45-52 09:58:002.7[facility] VfopbdaLNZCCQUMHZ1267-50-03 09:58:002.1[facility] WwzjagaNOGIDQEXQW4104-80-67 09:58:000.6[facility] Check FDFIFESFIZ9146-33-81 09:58:0036.3[facility] NeferahLKRQYLDBUO6658-84-75 09:58:00 46.0[facility] JcdnxjqVEHPNGPOKK3327-34-08 09:58:0010.4[facility]annHEMATOLOGY 2016-10-11 09:58:008.7[facility] CydnxusRZNXGQLOOC2602-46-46 09:58:64613Qpczmrgh RgeuzksOTOZKVDTAT3116-09-54 09:58:00 Test Item Value Reference Range Interpretation Comments MCH (test code = MCH) 29.3 pg 27.0-31.0 [facility] AzecpzuSMMXMBPHDU3355-08-08 09:58:0087.2[facility]annHEMATOLOGY 2016-10-11 09:58:0014.4[facility] XwkhrnbCTZGCOGRCN1573-93-08 09:58:0033.6[facility] RbrynusFRLLVVRDWU6648-77-30 09:58:0013.1[facility] PlzeariRUPETYUIRQ1459-58-91 09:58:004.45[facility] QntnnicLURYTOKWZG3965-79-97 09:58:0038.8[facility] Check ECIZITLHVI8684-66-28 09:58:005.8[facility] RluiqkzLEABVP6495-50-33 09:58:002.84 [facility] TcjrgkpXOGHAW9685-03-62 09:58:0014[facility] YaaabhpNHGIFR9932-48-22 09:58:0087[facility] OkjberiORJVRK8086-09-96 09:58:0071[facility] HermannLIPIDS 2016-10-11 09:58:42058Gsfrtzbb BmohtvbXLZHLO8980-79-41 09:58:0055[facility]annCARDIAC KSBFQGO4728-14-44 00:00:00<0.02[facility]annCARDIAC ENZYMES 2016-10-10 19:10:33<0.02[facility] HermannCHEM TCUVF5572-75-03 19:10:3392 [facility]annCHEM BUABI7001-50-14 19:10:338[facility] HermannCHEM PANEL 2016-10-10 19:10:330.78[facility] HermannCHEM NCBGG0941-70-83 19:10:98088Inkuvzce HermannCHEM QKOLG2193-35-50 19:10:333.2[facility] HermannCHEM HTFQD9633-37-10 19:10:339.3[facility] HermannCHEM YAQXZ9859-25-84 19:10:3331[facility] HermannCHEM MNCQF2516-57-58 19:10:09904Ljbyyeph HermannCHEM KADUL7854-45-88 19:10:88604 [facility]annCHEM AJYOU6411-53-06 19:10:337.2[facility]annHEMATOLOGY 2016-10-10 19:10:3333.8[facility] JdpznhrGXVXJNMODM0830-35-31 19:10:3314.2[facility] MtfcqdkWQAIJDWENN1265-49-16 19:10:33 Test Item Value Reference Range Interpretation Comments MCH (test code = MCH) 29.4 pg 27.0-31.0 [facility] SfbvhdiOKHBODGPOM5472-16-84 19:10:3387.0[facility]annHEMATOLOGY 2016-10-10 19:10:3313.5[facility] XwydsgeSZDGCMWWCB7774-86-57 19:10:3339.8[facility] PsnavetPIUPWACZLL9642-70-60 19:10:53329Hxujvqju QvnccteVOGUVLIMMC8427-40-66 19:10:338.7[facility] CugulguEXLATUSTLE4045-46-51 19:10:336.6[facility] AKWYZYAXVT6460-83-73 19:10:334.58[facility] LovtqwfTIZFBJFGIV4461-52-72 19:10:33 1.8[facility] YdtroigRSLKIBSTZL4276-27-22 19:10:330.6[facility]annHEMATOLOGY 2016-10-10 19:10:330.3[facility] OgxzkyeFUBOSAELFE1864-01-26 19:10:330.6[facility] UalmspyGCPYWTFWCD3640-42-06 19:10:333.9[facility] FeplvizEOBAWLWUDK5063-76-48 19:10:339.0[facility] LtjofviHFNMVONWDF3113-02-03 19:10:334.1[facility] EMPFKXUVCS6829-88-58 19:10:3359.5[facility] ZkietliBTDVQTRHIT9940-09-90 19:10:33 26.8[facility] HermannCARDIAC ZPOQHBX7466-23-85 04:07:00<0.02[facility] Check SNXAIXFPOQJT3683-43-83 04:07:0013.5[facility] YshvglgVWGTQISKBBMR3648-16-43 04:07:0079[facility] TnlzpxbVJTRFWGOWJRC2559-22-41 04:07:000.89[facility] Check DXROHGWUOFKB0576-56-14 04:07:009[facility] ZbqnbgrYBNCRXIQLTJX3196-23-04 04:07:00 72[facility] ZygrxuoWACPGXFTXCJW9946-88-53 04:07:77189Amxwmttp HermannELECTROLYTES 2016-04-14 04:07:0025[facility] MuygpqdYLZWCZTBSXQJ7968-66-71 04:07:008.9[facility] AsxjyvbAXCFFFFYIZDV0545-16-70 04:07:64421Xhkmukht RpxuxhiSHURBJIPJVUO7003-46-08 04:07:003.5[facility] DxqtpqyACZDIVFFVP2041-65-64 04:07:08306Zqxosoim Check PGTCVPZVQS5171-61-32 04:07:008.5[facility] ScchkknOMVNPLOWMT3716-44-56 04:07:00 33.5[facility] OjxigovPVVTZTRZWV5116-64-54 04:07:00 Test Item Value Reference Range Interpretation Comments MCH (test code = MCH) 28.7 pg 27.0-31.0 [facility] SkncotgBJBECOCGRM6740-32-16 04:07:0015.0[facility] HermannHEMATOLOGY 2016-04-14 04:07:0038.3[facility] MlcatbpSHGQGXFVME7330-74-33 04:07:0085.6[facility] YmemtuiCMRWGSTIDY6348-17-60 04:07:0012.9[facility] JxreuldQQRWKFQYPK8163-86-76 04:07:004.48[facility] ClczacaDLPPKSFZHP1269-65-98 04:07:005.6[facility] Check NHZACRHYCV2739-22-71 04:07:000.1[facility] HtsfnukAONNFLHORU1683-74-78 04:07:002.2 [facility] YafyuqjAMEYZXLHHC1658-51-63 04:07:000.3[facility] HermannHEMATOLOGY 2016-04-14 04:07:000.5[facility] PenhsdtJCIGHMGZPD2590-09-94 04:07:006.1[facility] HmyzicnEILSWVJVGM6818-82-74 04:07:001.1[facility] DnyikhjQIPHSXTJWW6251-67-75 04:07:002.5[facility] WqtzgbeQHSZZUMQJK2360-40-12 04:07:0038.8[facility] Check XTNADFTLOE9491-23-93 04:07:009.2[facility] LcuicjwJJKIAEADFN6496-01-27 04:07:00 44.8[facility] XytmaxyMNLUWBWYUX4908-68-48 04:07:008[facility] HermannTOXICOLOGY 2016-04-14 04:07:000.008[facility] HermannCARDIAC ZEAYVQP8820-74-24 11:47:00 <0.02[facility] AtxgyuyTIFLDM0327-41-01 11:47:003.39[facility] HermannLIPIDS 2016-03-12 11:47:0018[facility] IjntffiXGNBUL6001-05-41 11:47:0073[facility] Check OLTYTG3080-68-76 11:47:0090[facility] GuluayiQJWXMK7172-15-41 11:47:98539Lkvpjbzf TsnopphWYSQRH3565-87-21 11:47:0038[facility] HermannSPECIAL MYUYCXSVH6187-53-95 11:47:005.9[facility] HermannCARDIAC ZJJFZXH0034-86-62 02:33:0081[facility] Check CARDIAC CZCFLUO4631-14-37 02:33:000.02[facility] HermannCARDIAC ZZHGWNV8280-10-07 02:33:001.6[facility] HermannCARDIAC IWCKGQK1015-53-05 02:33:001.3[facility] ZKYLIYGHPD6114-85-74 21:03:00 Test Item Value Reference Range Interpretation Comments PROTIME (test code = PROTIME) 14.0 s 12.0-14.7 [facility] ZbtpgakTTMKDUWFEM6960-72-21 21:03:001.05[facility] HermannHEMATOLOGY 2016-03-11 21:03:00 Test Item Value Reference Range Interpretation Comments aPTT (test code = aPTT) 38.7 s 22.9-35.8 [facility] GmyyxqwHJRHREOIBL5358-87-80 21:03:000.49[facility] HermannCARDIAC ENZYMES 2016-03-11 20:14:001.6[facility] HermannCARDIAC HFQCWAD2890-59-15 20:14:001.3 [facility]annCARDIAC MQNONBX4948-40-42 20:14:00<0.02[facility] CARDIAC MWFGVCV5112-55-12 20:14:0083[facility] HermannCARDIAC GAAJFPC1475-32-19 20:14:0050[facility] HermannCHEM GVTEF1485-62-02 20:14:28391Hrzgbuvp HermannCHEM UMSDD7564-78-03 20:14:88960Tikkodmi HermannCHEM LAUIU6157-35-87 20:14:002.8 [facility] HermannCHEM POMVU2654-82-63 20:14:001.2[facility] HermannCHEM PANEL 2016-03-11 20:14:0015[facility] HermannCHEM DFUJU5415-62-64 20:14:0010.4[facility] HermannCHEM TUQSN1655-78-83 20:14:0014[facility] HermannCHEM UPZIS5884-28-53 20:14:006.1[facility] HermannCHEM NJVZA5501-69-29 20:14:000.5[facility] HermannCHEM AUBVL0905-03-08 20:14:007.7[facility] HermannCHEM JRIGQ4217-10-45 20:14:0026 [facility] HermannCHEM KXEQC5612-80-52 20:14:40818Ekgeigtb HermannCHEM PANEL 2016-03-11 20:14:003.4[facility] HermannCHEM KCSAL0712-54-92 20:14:87847Tejuyrxn HermannCHEM ZLMPY4854-23-46 20:14:000.61[facility] HermannCHEM YOHBT7278-53-07 20:14:009[facility] HermannCHEM JWWSJ2206-55-41 20:14:0076[facility] HermannCHEM LTZOT3108-63-75 20:14:0088[facility] HermannCHEM HVCIC0859-47-24 20:14:003.3 [facility] HermannCHEM NTMKE9973-81-12 20:14:0015[facility] HermannHEMATOLOGY 2016-03-11 20:14:001.8[facility] BenfxcpOACXDNGPID1618-88-92 20:14:000.5[facility] MgtfkhrNGYJHVUEMX9902-17-42 20:14:001.0[facility] StydxupQGTPGZDNKC5010-08-87 20:14:004.1[facility] XtcyuwrYLEEJHBCBT7579-90-65 20:14:000.2[facility] Check HUOVUKDMSC9448-55-30 20:14:000.1[facility] AlzvzanGBBCBBUJUF9945-20-90 20:14:00 61.4[facility] QupfkwsGUAQHGKXFB5872-28-44 20:14:003.5[facility] HermannHEMATOLOGY 2016-03-11 20:14:0026.6[facility] MytxrfcWFOPURHRBZ0772-84-77 20:14:007.5[facility] WyimaofCOKSVAJRUX9832-23-52 20:14:006.7[facility] AlhcsplCFKWRNUBXN4008-10-84 20:14:0012.2[facility] LtuviiuOXOCSOQSKB4172-67-32 20:14:004.26[facility] Check GSGISCBBJJ1810-56-09 20:14:00 Test Item Value Reference Range Interpretation Comments MCH (test code = MCH) 28.7 pg 27.0-31.0 [facility] SzwmtimSWFIBBACDI2422-39-81 20:14:0086.0[facility] HermannHEMATOLOGY 2016-03-11 20:14:0014.9[facility] DmwcflgHAURYKYFVQ0622-95-45 20:14:0033.3[facility] SerblxpKHVEVSODKZ1543-05-64 20:14:0036.6[facility] BjqxdmfDBRQPJWJUA9831-87-42 20:14:008.7[facility] EfsyeiiJWLCXZPVIW3270-67-52 20:14:80326Qrkxxfcf HermannURINE AND QFWIG2434-07-92 20:14:00Negative (03/11/16 3:14 PM)[facility] AND FBEML0569-63-55 20:14:00Negative (03/11/16 3:14 PM)[facility] AND ARVXH4131-41-98 20:14:00Negative (03/11/16 3:14 PM)[facility] AND QNZIJ6419-79-51 20:14:000.2[facility]annUR[facility] AND LOAUG5395-73-25 20:14:00 Clear (03/11/16 3:14 PM)[facility] GMDRY6309-54-18 20:14:00 Negative (03/11/16 3:14 PM)[facility] AND DRLND9841-77-89 20:14:00 <=1.005 *NA*(03/11/16 3:14 PM)[facility]UR[facility] AND KJUHK4592-21-98 20:14:00 Test Item Value Reference Range Interpretation Comments UA pH (test code = UA pH) 6.5 1 5.0-8.0 [facility]UR[facility] AND SIXPK4930-16-31 20:14:00Negative *NA*(03/11/16 3:14 PM) [facility] LRZSN0592-41-34 20:14:00Negative *NA*(03/11/16 3:14 PM) [facility] IPIMM6183-18-57 20:14:00Negative (03/11/16 3:14 PM) [facility] KWMAS1262-81-54 20:14:00Yellow *NA*(03/11/16 3:14 PM) [facility] SHBVV7785-62-21 00:22:00Yellow *NA*(02/29/16 7:22 PM) [facility] EDGWR0911-85-20 00:22:00 Test Item Value Reference Range Interpretation Comments UA pH (test code = UA pH) 6.0 1 5.0-8.0 [facility] WKNYQ1087-02-28 00:22:00Clear (02/29/16 7:22 PM)[facility] AADAU2222-55-97 00:22:00 Test Item Value Reference Range Interpretation Comments UA Spec Grav (test code = UA Spec 1.015 1 Grav) [facility] SHHCH2795-47-13 00:22:00Trace *ABN*(02/29/16 7:22 PM) [facility] RIODG8959-92-51 00:22:00None Seen (02/29/16 7:22 PM) [facility] NFUYM9547-50-41 00:22:00Negative (02/29/16 7:22 PM) [facility] KFNWO6764-90-56 00:22:001.0[facility] QUQMB8718-81-23 00:22:00Negative (02/29/16 7:22 PM)[facility] STOOL 2016-03-01 00:22:00Negative (02/29/16 7:22 PM)[facility] STOOL 2016-03-01 00:22:00Negative *NA*(02/29/16 7:22 PM)[facility] STOOL 2016-03-01 00:22:00Negative *NA*(02/29/16 7:22 PM)[facility] STOOL 2016-03-01 00:22:00Negative (02/29/16 7:22 PM)[facility] HermannCARDIAC ENZYMES 2016-02-29 23:14:00<0.02[facility] HermannCARDIAC MYQVOPC8054-22-71 23:14:001.1 [facility]annCARDIAC THQFKSC8537-73-93 23:14:50960Xfkkydct HermannCARDIAC TFRXSBK8666-20-79 23:14:007[facility]annCARDIAC ZWEJIUK2228-86-39 23:14:000.8 [facility] HermannCHEM TZQCZ2729-03-73 23:14:0080[facility] HermannCHEM PANEL 2016-02-29 23:14:0013[facility] HermannCHEM MYCGV0839-45-97 23:14:001.0[facility] HermannCHEM WQJCC5974-05-54 23:14:003.6[facility] HermannCHEM CCZRM6379-19-58 23:14:009[facility] HermannCHEM ZBSZG4350-52-92 23:14:007.1[facility] HermannCHEM VAQBO3035-60-83 23:14:0010.0[facility] HermannCHEM IJQNW4559-91-16 23:14:82676 [facility]annCHEM EFIHR4991-51-85 23:14:003.0[facility] HermannCHEM PANEL 2016-02-29 23:14:000.88[facility] HermannCHEM BOXYD8871-40-82 23:14:0030[facility] HermannCHEM NUGPB7786-89-65 23:14:000.6[facility] HermannCHEM CKYEP3773-49-70 23:14:008.7[facility] HermannCHEM LCVAV4322-15-83 23:14:38116Tguatqzo HermannCHEM TLWWT1368-40-46 23:14:0015[facility] HermannCHEM YHEEO7060-78-12 23:14:0088 [facility]annCHEM MJSPG5465-74-80 23:14:003.5[facility] HermannCHEM PANEL 2016-02-29 23:14:008[facility] HermannCHEM ARVFB8843-26-06 23:14:0089[facility] BzegvwyXCMVLWLHAP6902-02-60 23:14:00 Test Item Value Reference Range Interpretation Comments PROTIME (test code = PROTIME) 13.2 s 12.0-14.7 [facility] HczhxprXNXHUTMUON0450-68-58 23:14:000.97[facility] HermannHEMATOLOGY 2016-02-29 23:14:0015.3[facility] WfdfbnyQHKHEJWIOO5977-19-10 23:14:0032.9[facility] FddmzorUHEJAYAHWN9389-21-56 23:14:0043.8[facility] ApqtfleROAJLEVWBW7118-13-82 23:14:00 Test Item Value Reference Range Interpretation Comments MCH (test code = MCH) 28.1 pg 27.0-31.0 [facility] HyswkqcQFCORUKZXZ0439-19-43 23:14:0085.5[facility] HermannHEMATOLOGY 2016-02-29 23:14:005.3[facility] VwhdhbuNTOYOJBFSO6016-44-95 23:14:0014.4[facility] OfryzvfMGXWSJXHAJ2891-09-51 23:14:005.12[facility] CmomyegEIGWUHMJCF3941-88-02 23:14:28795Gnlnxdyb YqrvqqfTRTWSLVGKB6512-91-43 23:14:008.1[facility] Check EYXYAYJDZX6362-11-14 23:14:0057.2[facility] ZbuxlwjZLIYPOKVSG2599-36-03 23:14:00 11.7[facility] ZnqspjiUVUXOIVCLD6013-69-04 23:14:0024.1[facility] HermannHEMATOLOGY 2016-02-29 23:14:000.1[facility] XnsrtzuCEFTJDLURV9396-34-81 23:14:000.6[facility] JnbbqzrJMXSDZCLPD4092-62-97 23:14:001.3[facility] GuvszigRVXPYKQVBH8909-64-12 23:14:000.3[facility] OipzjtaMTRJZEKXVF0029-62-84 23:14:003.0[facility] DEXYRJXSFX6161-05-91 23:14:005.9[facility] EacnxwsZVGBEXOZLA2336-65-68 23:14:001.1 [facility] HermannCARDIAC SOXGVNJ5109-46-54 17:04:000.7[facility]annCARDIAC DMAXLFQ3451-50-83 17:04:000.7[facility] HermannCARDIAC UERFMMY8996-86-51 17:04:00 <0.02[facility] HermannCARDIAC BXQPASU0636-62-87 17:04:0097[facility] Check JWOTCPPZDMDW1551-36-04 17:04:0018.3[facility] BykppupWYWPHNAMAKGE8068-19-81 17:04:0078[facility] FltexwuKEYLODQSHLIX8011-01-83 17:04:37212Uspwkvki Maciej QRURFAQIPJAG4775-42-09 17:04:0010[facility] JiirwvkNCSHDMYNPBDF8882-69-83 17:04:00 0.90[facility] RwkdndyGARLTCRGIPRK6574-08-59 17:04:0020[facility] Check TOKIUCMWOCYE7178-73-68 17:04:009.4[facility] FanedseEFIGWIBYJQRA7660-98-39 17:04:004.3[facility] JhxqbpgZNBLBPLDTIJK2497-37-34 17:04:51383Uyhkscww Check VLAUBOZFRHKI8467-56-99 17:04:18182Wljzprif ErtffkhCSNFDFSOFB9003-99-74 17:04:00 9.6[facility] TkvcpdkKLYKCRGLRJ5498-07-63 17:04:0041.4[facility] HermannHEMATOLOGY 2015-09-04 17:04:0013.1[facility] MhpjczuYOGWTCDKRT2761-24-27 17:04:004.74[facility] QmhjftdQXIHSFLDOQ3313-47-83 17:04:0087.3[facility] XvkspjvDZAOVSRGWJ2198-60-24 17:04:0031.5[facility] OhgojfsRHMTRRLUQM0710-46-62 17:04:00 Test Item Value Reference Range Interpretation Comments MCH (test code = MCH) 27.5 pg 27.0-31.0 [facility] HixfkboFLLMBXWYSX9658-67-77 17:04:008.7[facility] HermannHEMATOLOGY 2015-09-04 17:04:49942Mxadtggw SsubkxqFDZXIBBVFC1866-76-12 17:04:0014.4[facility] QotuhwtUJNLRQYKKI3251-44-78 17:04:000.1[facility] KqxwmzaAUIXIIQNVT9229-76-04 17:04:000.5[facility] PtvbtcpNQODXKNMUI4599-76-53 17:04:00Normal (09/04/15 11:04 AM) [facility] HdinsbnTFRRHGASRT3207-86-29 17:04:00Normal (09/04/15 11:04 AM)[facility] MlnpksoKVCMUHFUQV1134-18-79 17:04:0093.3[facility] DyofwbsAHKXXDJBBH3981-71-80 17:04:000.2[facility] RpydwynYXGGHBCDIL4107-75-78 17:04:005.4[facility] BLLGWJMSAH9816-31-43 17:04:001.1[facility] AaghcotMSZIQLIDGW0064-78-81 17:04:009.0 [facility] UzkzwliTRUXJV8686-07-79 17:04:0014[facility] AwlmaytHSXVOP2014-54-90 17:04:58550Uewozkqu PfctgyuMRZBAR3851-08-13 17:04:0054[facility] HermannLIPIDS 2015-09-04 17:04:0071[facility] VzsjhbyGIPFRN9437-17-87 17:04:69046Wgosuqxx NprsqgpNILSNF6177-09-28 17:04:003.67[facility] HermannCARDIAC WIDGSWM6111-42-53 10:50:000.6[facility]annCARDIAC ZXJWTJF6198-47-84 10:50:000.6[facility] Check CARDIAC DMWJCFC0962-18-61 10:50:00<0.02[facility] HermannCARDIAC ENZYMES 2015-09-04 10:50:17914Zzwqxytn HermannCARDIAC FZTAFUI9040-50-52 04:33:68165 [facility]annCARDIAC MKWQZQB0014-48-77 04:33:00<0.02[facility] Check CARDIAC CKSDBMP5291-03-85 04:33:000.8[facility] HermannCARDIAC YXMSTFK0291-51-49 04:33:000.7[facility] HermannCHEM GVDRJ7447-43-49 04:33:0087[facility] HermannCHEM ALTDG4617-59-57 04:33:008[facility] HermannCHEM YAJPZ9732-54-77 04:33:000.82 [facility] HermannCHEM LIURT0261-66-17 04:33:41462Bflrhumw HermannCHEM PANEL 2015-09-04 04:33:72472Jczlzipb HermannCHEM HWNJO4364-34-72 04:33:003.9[facility] HermannCHEM OCRQJ2229-71-44 04:33:85423Koiaxxwv HermannCHEM HNDAR6280-79-25 04:33:0013.9[facility] HermannCHEM KVDAU6700-81-89 04:33:009.2[facility] HermannCHEM ULGGL3223-10-69 04:33:0025[facility] CnlqvwzKFVQVASWVD0404-94-57 04:33:007.4 [facility] PighbduSQUCYYCKPG3242-60-26 04:33:0012.4[facility] HermannHEMATOLOGY 2015-09-04 04:33:004.57[facility] ApaojpuHZJAWLTICF6400-40-39 04:33:0039.4[facility] HcpitydKBDBZVSILL9645-69-52 04:33:0086.1[facility] UmhwpznOEFUQDMMFD5017-25-87 04:33:0014.7[facility] PaawpffGQSMGLJAPA3314-00-77 04:33:0031.6[facility] GMGZLIESVL9699-05-77 04:33:00 Test Item Value Reference Range Interpretation Comments MCH (test code = MCH) 27.2 pg 27.0-31.0 [facility] LfeixcbLBPMJUBKVE2254-19-84 04:33:008.3[facility] HermannHEMATOLOGY 2015-09-04 04:33:29182Bzuquhgi SbzlsneWMFEVYLMDM1907-18-83 04:33:005.5[facility] ZyoumifYDCNDDZKHM6973-75-81 04:33:006.5[facility] RuykswgUPKYPGNOUT4843-28-34 04:33:0031.7[facility] IgxzenoDLEQVCBFTZ6356-45-20 04:33:0055.0[facility] Check GFXXWWZCUR2909-16-49 04:33:000.5[facility] HcczzszUOKIMWODAF4852-85-95 04:33:002.3 [facility] ZwcmfypLSWBASIEBT0307-68-03 04:33:004.0[facility]annHEMATOLOGY 2015-09-04 04:33:001.3[facility] MeqyduaWJCWWSWERY9267-57-93 04:33:000.1[facility] NjwhrniVHARXYOUHO4638-85-79 04:33:000.4[facility] HermannCARDIAC ANKATNY1238-36-63 10:25:00<0.02[facility] HermannCARDIAC FRZCYCE3394-64-45 10:25:0075[facility]annCARDIAC ITSWJLS3561-18-62 10:25:000.9[facility] HermannCARDIAC ENZYMES 2015-07-16 10:25:001.2[facility] HermannCHEM FZJPF4168-89-52 10:25:85696Ossnvwct HermannCHEM RJCYB7114-19-74 10:25:000.6[facility] HermannCHEM IKUKE1250-01-16 10:25:003.1[facility] HermannCHEM NHOWQ1798-90-14 10:25:009.0[facility] HermannCHEM QAHFD5899-57-52 10:25:006.3[facility] HermannCHEM YOGFJ4247-68-20 10:25:0014 [facility]annCHEM JEBJH5525-45-07 10:25:0089[facility] HermannCHEM PANEL 2015-07-16 10:25:0019[facility] HermannCHEM GCHIF2352-07-34 10:25:0025[facility] HermannCHEM IXCYX3883-31-36 10:25:004.2[facility] HermannCHEM DMJLQ3843-57-04 10:25:23028Lklgkmwf HermannCHEM BBKWB6437-66-96 10:25:0014[facility] HermannCHEM HJQVP9231-46-03 10:25:000.70[facility] HermannCHEM MQOAB1850-54-82 10:25:21051 [facility]annCHEM WGRWR7729-37-45 10:25:0078[facility] HermannCHEM PANEL 2015-07-16 10:25:0020[facility] HermannCHEM IOWKW6459-49-86 10:25:0010.2[facility] HermannCHEM UJNDV0146-22-05 10:25:001.0[facility] HermannCHEM EAPUT2950-61-47 10:25:003.2[facility] QcwgcqdYNSLEGOEUE2796-68-32 10:25:008.6[facility] Check DXNODWMJMW0217-45-06 10:25:28306Zahhjsrz WntfxieISDPYRNXYN5537-06-12 10:25:00 14.3[facility] SgtuqxbYQXRCOCQMW0750-50-52 10:25:004.53[facility] HermannHEMATOLOGY 2015-07-16 10:25:005.5[facility] OgntjmfCLPPGJJPPR2923-94-00 10:25:00 Test Item Value Reference Range Interpretation Comments MCH (test code = MCH) 27.9 pg 27.0-31.0 [facility] AusszgjXSKEMMKXKI1351-78-13 10:25:0031.5[facility] HermannHEMATOLOGY 2015-07-16 10:25:0088.6[facility] FojaixlBSKVTLWZGK3271-54-83 10:25:0040.2[facility] QvbaszwMWAVEHGXJZ2460-16-47 10:25:0012.6[facility] YwbxlnfBDZUFWIOEH9985-26-15 10:25:000.2[facility] MmisqlxJYAZEFEJXD8242-84-63 10:25:002.0[facility] Check KXNMAMVAIN3203-19-58 10:25:000.9[facility] QgtglsdTADYDRQVIO9634-09-02 10:25:000.6 [facility] BknumceCUXUGPBQAC9189-57-08 10:25:002.6[facility] HermannHEMATOLOGY 2015-07-16 10:25:0011.0[facility] EoazxcjDJWZDMWNFP9185-19-72 10:25:004.0[facility] KdawhnmXHCTDSWEND2983-95-65 10:25:0036.1[facility] WrkdabeQAQEDCBLKF5180-19-02 10:25:0048.0[facility] EzdtizsSOGMDSWFOZ4439-39-66 10:25:000.1[facility] Check CARDIAC JUCDBGV3991-15-68 04:22:00<0.02[facility] HermannCARDIAC ENZYMES 2015-07-16 04:22:0088[facility]annCARDIAC DALAPGB4890-46-36 04:22:001.1 [facility]annCARDIAC UDOYJWD6032-47-75 04:22:001.0[facility] HermannHEMATOLOGY 2015-07-15 21:33:006.4[facility] HermannCARDIAC NTTGGPQ9082-58-91 21:33:00<0.02 [facility]annCARDIAC IKGTMYG4450-87-62 21:33:001.2[facility]annCARDIAC CEDEIVZ1797-01-98 21:33:22380Nftyxdjh HermannCARDIAC EVXABJN8075-51-92 21:33:00 1.2[facility] HermannCHEM EQAWU5499-48-29 21:33:0090[facility] HermannCHEM PANEL 2015-07-15 21:33:0091[facility] HermannCHEM EXMSX5369-94-80 21:33:0019[facility] HermannCHEM KRSOT6455-17-66 21:33:0017[facility] HermannCHEM TRLNE7101-72-15 21:33:0012[facility] HermannCHEM ERWLS9353-66-93 21:33:000.8[facility] HermannCHEM VSCEG1344-61-57 21:33:0011.1[facility] HermannCHEM ZZJEA1677-62-73 21:33:003.5 [facility]annCHEM SWPPZ1952-37-55 21:33:0027[facility] HermannCHEM PANEL 2015-07-15 21:33:006.8[facility] HermannCHEM MCIGA3700-51-29 21:33:008.7[facility] HermannCHEM PGMRN3353-23-90 21:33:003.3[facility] HermannCHEM KPVAJ7159-56-78 21:33:001.1[facility] HermannCHEM VXFCC8403-88-17 21:33:000.80[facility] HermannCHEM CCURA7556-30-48 21:33:20229Zafbfsrz HermannCHEM CGUYI9848-17-69 21:33:29666 [facility]annCHEM NVLKT1566-09-33 21:33:004.1[facility] HermannCHEM PANEL 2015-07-15 21:33:0010[facility] HermannCHEM LBRWP8423-05-80 21:33:0072[facility] PknnwxhFROATZXTXJ4630-03-30 21:33:003.3[facility] KhkvgnkKSBTFLAHGU7859-12-13 21:33:000.2[facility] YenktoqWVUKOLBPJV3486-61-65 21:33:000.6[facility] SZNIAYUMZV3012-03-43 21:33:002.3[facility] MamuizuMHZVZMYIDD1377-88-21 21:33:00 51.8[facility] RohfeqlTIXAJWANEK0124-20-64 21:33:000.6[facility] HermannHEMATOLOGY 2015-07-15 21:33:003.1[facility] YwmsdmxJIWKGIDFUF8021-47-38 21:33:009.4[facility] ZvfkrfbQRYOQKKEGM0774-41-68 21:33:0035.1[facility] RfxuljiEKLFEZEKNV6266-74-52 21:33:000.0[facility] WckkrycWXQGEGYFZV1707-23-36 21:33:009.1[facility] Check AFNUGTFQGF2174-96-22 21:33:0087.6[facility] EyuqdkdKFIJGHNDFA7356-57-44 21:33:00 12.9[facility] BlmtwzzQNAFYSFPOE2961-34-06 21:33:0039.8[facility]annHEMATOLOGY 2015-07-15 21:33:0032.3[facility] PlbkmdyWJJFQVAJLQ5671-02-61 21:33:0014.8[facility] XznhyumONPSUIFLRF0822-67-33 21:33:00 Test Item Value Reference Range Interpretation Comments MCH (test code = MCH) 28.3 pg 27.0-31.0 [facility] VknkgbuJZIQFHZGSL3243-15-77 21:33:88363Ymymzqlp HermannHEMATOLOGY 2015-07-15 21:33:004.54[facility] TapfqeoUPXVCTOOIK9006-87-47 19:18:00Negative (05/18/15 2:18 PM)[facility]annCARDIAC UBLFUFM3855-65-83 18:26:00<0.02 [facility]annCHEM CTXKF4376-39-95 18:26:000.1[facility]annCHEM PANEL 2015-05-18 18:26:003.9[facility] HermannCHEM TYNBP7033-63-67 18:26:22061Wjwugsjl HermannCHEM QVNWJ6105-51-49 18:26:000.5[facility]annCHEM ZBSOX6296-75-91 18:26:0022[facility]annCHEM ZDGVZ0941-61-50 18:26:0018[facility]annCHEM QVSSD8893-14-46 18:26:007.9[facility]annCHEM YJNEL1851-92-34 18:26:004.0 [facility]annCHEM MMZTJ5919-74-86 18:26:000.4[facility]annCHEM PANEL 2015-05-18 18:26:001.0[facility]annCHEM TRYLG8652-59-46 18:26:01277Fvlabowq HermannCHEM ILUWP6273-76-90 18:26:0078[facility]annCHEM LRRWX5319-68-19 18:26:64958Jdnokjre HermannCHEM QGAHI7294-84-64 18:26:003.9[facility]annCHEM SVMQI1408-45-34 18:26:000.9[facility] HermannCHEM ONDVG0445-62-55 18:26:0087 [facility]annCHEM DQZRX6604-58-71 18:26:007[facility]annCHEM PANEL 2015-05-18 18:26:71804Kujwqccv HermannCHEM XCEZS8936-19-66 18:26:0028[facility]annCHEM PURTE0470-37-49 18:26:0010.2[facility]annCHEM RZMVF7108-32-51 18:26:0010.9[facility] TbaqcjuSBOYZQKTIB1553-79-39 18:26:0014.2[facility] Check SSTYAPGEUB1982-83-69 18:26:004.96[facility] WncewyyNMIGJCARDM8440-69-72 18:26:00 Test Item Value Reference Range Interpretation Comments MCH (test code = MCH) 28.7 pg 27.0-31.0 [facility] EwvlaahQVEFWZWMCT6908-64-11 18:26:0032.9[facility]annHEMATOLOGY 2015-05-18 18:26:0043.3[facility] WfdvgpvGQFEYLXQWU6116-22-35 18:26:0087.2[facility] EkyzefyGJRDOSSNDW4189-95-74 18:26:006.8[facility] VcwsoprGMKEZQFTNL3657-58-46 18:26:16662Hnqtdglo PxgsxwyHPMJXFWGLR4023-29-50 18:26:008.2[facility] Check BJIYUYWYIN4886-43-69 18:26:0014.5[facility] VffubfiFCHNBQMDTS2165-46-40 18:26:00 55.6[facility] MmfdwfbEWHHUDWBDJ9351-95-19 18:26:0032.7[facility]annHEMATOLOGY 2015-05-18 18:26:008.5[facility] YahhlavYZGDYRXFLS1899-30-11 18:26:003.8[facility] KufmoxtSYPDLIEKEU8375-64-71 18:26:000.6[facility] HkggyijEZWVAVLMHC3117-53-33 18:26:002.2[facility] YsrjlymUPTNPBXVYM6895-43-62 18:26:002.6[facility] Check SLMQAPAFWD4592-35-59 18:26:000.2[facility] RrrlhwsVOFHPFYJWC9098-04-71 18:26:000.6 [facility] PdatgbpLOEBINRXSY8021-38-39 18:26:00Positive *NA*(05/18/15 1:26 PM) [facility] VjaxcjeLUTVPPZUGU5887-18-40 18:26:43215205Qqtlmols HermannIMMUNOLOGY 2015-05-18 18:26:005.5[facility] HermannCARDIAC JBRIVIT0157-84-09 18:51:00<0.02 [facility]annCHEM UDGQU4493-17-22 18:51:0090[facility] HermannCHEM PANEL 2015-05-09 18:51:0028[facility] HermannCHEM ETXRT4339-39-56 18:51:009.6[facility] HermannCHEM KLGWX3508-78-38 18:51:20522Swrfaroh HermannCHEM JLSYH8234-46-84 18:51:000.8[facility] HermannCHEM FGXTR2862-32-33 18:51:08629Myzpydmk HermannCHEM JPKBT6006-69-51 18:51:003.7[facility] HermannCHEM KQCFY8506-83-92 18:51:05963 [facility]annCHEM ZYKWA9280-14-05 18:51:007[facility]annCHEM PANEL 2015-05-09 18:51:009.7[facility] DzqpycbWTILHOJOSJ2525-29-06 18:51:0014.4[facility] RprmchkRQSUNWUGST9431-10-47 18:51:0032.5[facility] LogovxvCKSCDPGVXH3765-99-78 18:51:00 Test Item Value Reference Range Interpretation Comments MCH (test code = MCH) 28.7 pg 27.0-31.0 [facility] HpvlgcnLTAJKWJKWC5753-88-55 18:51:84646Sxyfotlm HermannHEMATOLOGY 2015-05-09 18:51:007.6[facility] ThtilujMIBCSFDPUU2150-33-44 18:51:0088.2[facility] MdqqxhzOVZCUUHAPM0983-07-40 18:51:0041.9[facility] VkkgofcVBZXVHAUFR6668-81-74 18:51:004.75[facility] HxxjiyjDOTTKHVTXO3874-16-48 18:51:0013.6[facility] Maciej JCLYLUHJHJ0950-95-88 18:51:005.6[facility] OchcuqvCDIQGARFWL6243-31-14 18:51:002.1 [facility] XlryqyqHGNFHPSWYT0645-20-20 18:51:000.1[facility]annHEMATOLOGY 2015-05-09 18:51:000.2[facility] PqmnxceHFVNRZDDYX8519-99-53 18:51:000.4[facility] GpwjwsbADJHLASCOY2090-44-65 18:51:0050.8[facility] UhzzbouNXHHOOMZAV6495-89-09 18:51:002.8[facility] BznstquTMPPDVISYS6217-57-92 18:51:002.9[facility] Check YCIQVUCOXF3677-72-42 18:51:001.1[facility] AgxivweDTENOVKVIP9218-09-43 18:51:007.7 [facility] PlxbtysXTDCYHTQOP5573-30-11 18:51:0037.6[facility] HermannCARDIAC ENZYMES 2015-05-02 22:03:00<0.02[facility] HermannCHEM NGSWL0803-28-68 22:03:003.2 [facility]annCHEM CRYOG6726-14-18 22:03:002.1[facility] HermannELECTROLYTES 2015-05-02 22:03:0012.4[facility] KzeunfuFNABEICVJDNJ0551-99-35 22:03:0068[facility] ClinvpnZVQPFPXSITNT7268-08-62 22:03:59032Gsggakcu RlzdjoiQVJZKPKBGWWN2838-87-63 22:03:17678Ihacifhe GvzbrzeERUMITYVIZWB9160-86-53 22:03:0028[facility] Check CLDZYOTOCIUN1821-42-70 22:03:008.8[facility] TglzrpyOXGQDWBJYLXL1885-39-13 22:03:003.4[facility] RbxaegxTSSKDTVZUSIO6647-41-84 22:03:000.9[facility] PMVCUZVQXJEI5754-68-02 22:03:0092[facility] AvemuuwJLCVUYSIRUDP8739-10-00 22:03:00 6[facility] TyiveonLNQSSDOKAB0506-04-95 22:03:008.0[facility] HermannHEMATOLOGY 2015-05-02 22:03:0014.1[facility] AnmqmfmGQSPNYXMXT6656-33-68 22:03:35157Aungaxgi TzkosydUQSGKCOQKI7415-21-58 22:03:0032.6[facility] JcbjnnyJTYYWXOQPR6222-05-46 22:03:008.0[facility] LcqvkbtDFUXXZQUMY7127-60-81 22:03:0040.2[facility]iej PXUKQMRGJG0829-83-04 22:03:0087.4[facility] VkqltgrKMDNHJAGVN0501-57-62 22:03:00 13.1[facility] ZbzkdybOECTCGSSCR6916-79-95 22:03:004.60[facility]annHEMATOLOGY 2015-05-02 22:03:00 Test Item Value Reference Range Interpretation Comments MCH (test code = MCH) 28.5 pg 27.0-31.0 [facility] RrhznytEBCZWYZVNC4064-86-18 22:03:0026.3[facility] HermannHEMATOLOGY 2015-05-02 22:03:0060.9[facility] NbwittuTOJOPCIOUP6146-89-03 22:03:001.0[facility] BqonzfzMBCGLWJWMT9508-07-70 22:03:003.0[facility] SpkbzivRGZDOPKNPL7761-68-61 22:03:008.8[facility] BptynrzUOWAJBKQCU8795-95-58 22:03:000.7[facility] Check SEMGCNFTRR0788-00-37 22:03:000.2[facility] EcpyuppGKSININYJI1379-04-83 22:03:002.1 [facility] JckvxtrLPNPASSIEN3944-67-71 22:03:004.9[facility] HermannHEMATOLOGY 2015-05-02 22:03:000.1[facility] HermannURINE AND XGTIW2909-88-28 21:38:00Negative (05/02/15 4:38 PM)[facility]annUR[facility] AND CABOT3113-05-77 21:38:00Moderate *ABN*(05/02/15 4:38 PM)[facility]UR[facility] AND CTXME0394-66-02 21:38:00None Seen (05/02/15 4:38 PM)[facility] HHILJ1761-93-86 21:38:00None Seen (05/02/15 4:38 PM)[facility] JMMSO5275-09-30 21:38:00Negative (05/02/15 4:38 PM)[facility] TDMLX5910-68-60 21:38:00Negative *NA*(05/02/15 4:38 PM)[facility] QMFKQ0487[facility]74-54 21:38:000.2 [facility] CDGTG3589-73-08 21:38:00Negative (05/02/15 4:38 PM) [facility] PYKCX5923-45-73 21:38:00Negative *NA*(05/02/15 4:38 PM) [facility] CIKQA9360-00-97 21:38:00Yellow *NA*(05/02/15 4:38 PM) [facility] ANEQW1977-41-70 21:38:00 Test Item Value Reference Range Interpretation Comments UA pH (test code = UA pH) 6.0 1 5.0-8.0 [facility] NYRKK3627-32-77 21:38:00Slight Cloudy (05/02/15 4:38 PM) [facility] BEAFD9580-20-35 21:38:00Negative (05/02/15 4:38 PM) [facility] XSFED8796-64-71 21:38:00 Test Item Value Reference Range Interpretation Comments UA Spec Grav (test code = UA Spec 1.006 1 Grav) [facility]CHE[facility] DAQBN6944-05-25 09:28:0034[facility]annCHE[facility] PANEL 2015-03-24 09:28:000.6[facility]annCHE[facility] FWVNW1247-64-71 09:28:0095[facility]annCHE[facility] JILIT3070-68-43 09:28:006[facility] OWEQQ3813-68-81 09:28:001.1[facility]CHE[facility] XYPJW9271-32-91 09:28:003.1[facility] Check AMVMKABLCS0941-10-47 09:28:0011.3[facility] YrrrpucFJGRRKPWJV2929-74-55 09:28:00 27.1[facility] LsfzmtwKKHKZLHNDN3197-21-29 09:28:005.9[facility]annHEMATOLOGY 2015-03-24 09:28:003.3[facility] WuekbcpDSCPRLBVQD7422-48-59 09:28:000.7[facility] JmzfferBRNLTMJRHP1386-48-64 09:28:0055.0[facility] AmpokmmUXSXYWRGYP4528-89-20 09:28:000.7[facility] SdrlfulUOAOADABPV1030-27-71 09:28:001.6[facility] SLTXJDXGFE6711-20-15 09:28:000.4[facility] JvqmecqEGKFWPNSEL1850-13-82 09:28:00 4.21[facility] UzchbweZULNBLDGQK1272-96-62 09:28:005.9[facility]annHEMATOLOGY 2015-03-24 09:28:15708Utbvvrad UumbouaTSRWGFWSNH7147-92-20 09:28:0032.4[facility] WqlodphNZZKURZIDH8018-74-04 09:28:0014.2[facility] ZfzobazNCGXPLSCHG5934-50-47 09:28:008.6[facility] PlglrvmDYWNXYZTSY9462-17-78 09:28:0037.2[facility] DSQQXEDEFZ4289-63-88 09:28:0088.3[facility] MmmfefrUXAHGMSGBX3760-85-07 09:28:00 12.1[facility] DaifsulMRZKIGDPGY0110-90-06 09:28:00 Test Item Value Reference Range Interpretation Comments MCH (test code = MCH) 28.6 pg 27.0-31.0 [facility] SDMRX2109-81-56 09:28:27893Yhgvrxru HermannCHEM PANEL 2015-03-24 09:28:03234Kvjntfsx HermannCHEM FWMQU4579-08-35 09:28:000.7[facility]annCHE[facility] ABVXL7089-86-64 09:28:004[facility]CHE[facility] HHCAB6722-90-02 09:28:003.2[facility]annCHE[facility] XZTHX6621-69-59 09:28:58874Lyvkyspi HermannCHEM STLFL4669-86-90 09:28:0091[facility]CHE[facility] FWZXZ4784-58-71 09:28:003.5 [facility] IIMEN7770-82-16 09:28:006.6[facility]annCHE[facility] PANEL 2015-03-24 09:28:74632Fhemdemh HermannCHEM XCVZI9633-72-27 09:28:009.1[facility]annCHE[facility] SJFRP0124-64-57 09:28:0027[facility]CHE[facility] HWHEK2154-65-49 09:28:0011.2[facility]annCHE[facility] ELUEY8044-03-04 09:28:0021[facility] BSXRT8870-17-61 18:14:00Negative (03/23/15 1:14 PM)[facility]ARD[facility]AC LOECJIJ8435-41-54 10:51:000.8[facility]AC SHPZKAO5517-55-27 10:51:00 70[facility] BHXHUXP9688-16-04 10:51:001.1[facility]annCHEM ADHID2718-09-38 10:51:09572Hwulovgv HermannCHEM VDQTN9163-30-67 10:51:0027 [facility]CHE[facility] WXDZN6890-68-58 10:51:009.2[facility]annCHEM PANEL 2015-03-23 10:51:87435Yxkncedc HermannCHEM MDIJY7091-23-77 10:51:17793Kcqqsmcy HermannCHEM FJVOY5477-39-27 10:51:003.5[facility]annCHEM CPQNL5961-88-31 10:51:000.7[facility]annCHEM PLTGH9814-21-40 10:51:008[facility]annCHE[facility] KQHTO2488-39-86 10:51:76446Klzgjnfc HermannCHEM GVGMK1052-37-41 10:51:0010.5 [facility] GlplnidLIBCGKGLRN6411-37-57 10:51:001.3[facility]annHEMATOLOGY 2015-03-23 10:51:003.4[facility] IkavuqhQSAAWXNRWV7846-76-60 10:51:000.6[facility] UstptdjZOLQIIYSWS7089-81-30 10:51:004.0[facility] QbljflwUUGUZOUYDF6388-59-61 10:51:000.2[facility] VgwmiafVMSMHQIWNO5066-28-57 10:51:000.6[facility] Check XRWWRXLYAM5998-41-19 10:51:0011.0[facility] ZfltkprBXWSJAVIHX5654-44-46 10:51:00 23.6[facility] YbtzfefWKHRLQLABU1350-21-36 10:51:0060.8[facility]annHEMATOLOGY 2015-03-23 10:51:008.3[facility] ZwbpenqFPOSVMYFOI0759-85-63 10:51:10684Etyzzfkj SxxyojtJXZZFBCMHU9458-84-41 10:51:0014.6[facility] JnuqlalCLOOTWELEK9442-67-26 10:51:0088.0[facility] QgcekecTGUQIBIPOG5929-64-85 10:51:00 Test Item Value Reference Range Interpretation Comments MCH (test code = MCH) 28.7 pg 27.0-31.0 [facility] LeyvvifJURLUIKRCN8905-47-39 10:51:0034.7[facility]annHEMATOLOGY 2015-03-23 10:51:0032.6[facility] PooryomMRSBZTRNQM8135-03-17 10:51:0011.3[facility] IiocojcKQKCGDDNRK9484-35-66 10:51:003.94[facility] BbfmyuuNAXCARJDMJ7216-99-35 10:51:005.6[facility]annCARDIAC XONPDLB4316-78-46 10:19:001.6[facility] Check CARDIAC CEMGBUG5774-57-96 10:19:001.0[facility]annCARDIAC QSNKXNS3757-64-50 10:19:0064[facility]annCHEM MNMAA4662-06-39 10:19:29766Kfzubway HermannCHEM QANFB5677-44-71 10:19:008.7[facility]annCHEM NUQHY4871-43-24 10:19:51842 [facility]CHE[facility] CBXPS4325-81-94 10:19:003.9[facility]annCHEM PANEL 2015-03-22 10:19:64084Rlhrxdvu HermannCHEM WGMZW7468-34-49 10:19:0027[facility]annCHEM JHALT0922-14-36 10:19:0094[facility]annCHEM ACIMG5414-08-93 10:19:008[facility]annCHEM NGCYV1063-31-92 10:19:000.6[facility]annCHEM EBCAL3376-69-72 10:19:008.9[facility] CzhjyfyNCYCXUXMHI3413-18-39 10:19:000.2 [facility] TbpzfxhLZAVWMOTJE7068-30-25 10:19:000.5[facility]annHEMATOLOGY 2015-03-22 10:19:000.9[facility] CthmzvdMESSWNUVZF8326-47-82 10:19:0011.2[facility] HdckdnxRZREEOVRHP9816-81-15 10:19:002.1[facility] JkcmwtgIJMRYQFFFR9147-92-87 10:19:003.7[facility] WdzswfoZVCNEMNNER1342-57-93 10:19:001.6[facility] Check LHICDRCHIT9912-16-28 10:19:0048.6[facility] KvmdpnzZWDOTKHDSH6945-90-68 10:19:00 35.6[facility] NdusnjfTLWMNYGZQP3102-63-84 10:19:008.9[facility]annHEMATOLOGY 2015-03-22 10:19:004.4[facility] JyphpylNAANKVOTLX5032-72-23 10:19:00 Test Item Value Reference Range Interpretation Comments MCH (test code = MCH) 29.9 pg 27.0-31.0 [facility] OwevchdCSRVXEPJDF3094-05-54 10:19:0086.5[facility]annHEMATOLOGY 2015-03-22 10:19:0034.6[facility] UdugdbhSSJKGWXYXZ6471-84-28 10:19:0011.7[facility] IunhquqUSWBDXWVDC0425-47-17 10:19:003.92[facility] NspkkgyOBKDIUJWQT6469-78-70 10:19:0033.9[facility] XgptebgTTDQQMJKGV2958-71-37 10:19:0014.6[facility] QOBVNMVPVQ1577-08-53 10:19:12171Wrbeokns HermannCARDIAC CCLTSVC1509-38-12 03:22:001.6[facility]annCARDIAC BRSXRDC7578-31-29 03:22:0077[facility] CARDIAC DKXIWSB8504-51-52 03:22:001.2[facility]annCHEM LCWRS1934-22-09 02:44:001.4[facility]annCARDIAC COOMRNF3230-27-62 21:13:00<0.02[facility]annCHEM PQAKZ5148-74-13 21:13:003.3[facility]annCHEM ZCKXD9091-51-03 21:13:001.1[facility]annCHEM LSGXA2037-92-62 21:13:0016[facility]annCHEM CODWI5832-34-35 21:13:06477Loazsjxw HermannCHEM QZQLF0236-82-13 21:13:0025 [facility]annCHE[facility] NQUJA5355-76-28 21:13:000.5[facility]annCHEM PANEL 2015-03-21 21:13:0032[facility]annCHEM HMMXF6429-74-37 21:13:003.7[facility]annCHEM WMTSB8594-70-51 21:13:007.0[facility] IgvryitJZAYPWWQNU0900-11-54 21:13:000.0[facility] KlkitobROHOMMIQLX8099-47-46 21:13:001.04[facility] Check DLATKXDHVE3126-79-69 21:13:00 Test Item Value Reference Range Interpretation Comments PT (test code = PT) 13.6 s 12.0-14.7 [facility] IdtrtgqZFPJDTBWHH1377-27-20 21:13:00 Test Item Value Reference Range Interpretation Comments PTT (test code = PTT) 35.2 s 22.9-35.8 [facility] IYCWTCG6931-14-00 21:10:006[facility]AC AKLBNTD8861-52-61 21:02:00<0.02[facility]annCARDIAC MFGVSJL6554-65-85 21:02:0031[facility]annCARDIAC WVZQGOQ4056-87-83 21:02:000.8[facility] Maceij CARDIAC OTZPZLL5252-33-46 21:02:0070[facility]annCARD[facility]AC QZZHPIL8757-83-43 21:02:001.1[facility]annCHEM MMCWI7684-22-77 21:02:92074Lmnoziqg HermannCHEM SHDBJ1286-20-52 21:02:0099[facility]annCHE[facility] VGAHA3697-94-14 21:02:000.6 [facility]CHE[facility] FZKQF0231-21-57 21:02:0011[facility]annCHEM PANEL 2015-03-11 21:02:009.4[facility]annCHEM ZEVNN1967-34-98 21:02:003.1[facility]annCHEM VQJNA5298-51-73 21:02:001.1[facility]annCHEM EICUJ6746-77-98 21:02:0073[facility]annCHEM SXQXN3263-39-97 21:02:008[facility]annCHE[facility] VPPRT6507-46-93 21:02:000.7[facility]annCHEM ULFWZ6907-94-14 21:02:47543 [facility]annCHE[facility] JWTKA7624-21-43 21:02:003.4[facility]annCHEM PANEL 2015-03-11 21:02:0028[facility]annCHEM FGAET3035-64-93 21:02:06200Lomegdci HermannCHEM HHUNA1407-51-65 21:02:008.9[facility]annCHEM VTNPY3676-59-74 21:02:006.5[facility]annCHEM FSVBD6563-87-11 21:02:003.4[facility]annCHEM OSYDG5639-50-67 21:02:0030[facility]annCHEM ZMHEK4746-02-17 21:02:0021 [facility] BhmnsebSDWKADKZCH0149-09-65 21:02:0015.1[facility]annHEMATOLOGY 2015-03-11 21:02:0033.1[facility] QzfmjjcAMVTDFJTJZ3525-43-10 21:02:28227Yrtdekyx EiuouujQPKMWHOYBS2227-16-20 21:02:008.1[facility] TgbatxhHNYZCFUMNG6108-71-62 21:02:0034.6[facility] ZowpqlcYZNNPJBQMU1669-42-61 21:02:0011.5[facility] KIAVVCEIHT4620-95-52 21:02:00 Test Item Value Reference Range Interpretation Comments MCH (test code = MCH) 28.8 pg 27.0-31.0 [facility] HndbvmgUYKQOWXUXV5144-61-70 21:02:0086.9[facility]annHEMATOLOGY 2015-03-11 21:02:003.98[facility] OsjrqljAEONABFWBI0454-26-68 21:02:006.5[facility] DwjrahbGIDWVJSEOH0177-95-19 21:02:00 Test Item Value Reference Range Interpretation Comments PTT (test code = PTT) 32.8 s 22.9-35.8 [facility] MbenrnlXNSGRLUNSY4797-98-62 21:02:00 Test Item Value Reference Range Interpretation Comments PT (test code = PT) 13.3 s 12.0-14.7 [facility] UfquzzvZMPNWLWBMB6485-33-67 21:02:001.01[facility]annHEMATOLOGY 2015-03-11 21:02:000.0[facility] UzgondrOXKIJAZEXL9323-25-46 21:02:003.7[facility] XujtaroBLITDJCRQW2248-13-23 21:02:000.2[facility] CpdtqgtLEPUYLYWLI2207-34-11 21:02:000.6[facility] UmihgikQHTUSLSRWY1825-05-07 21:02:001.9[facility] Check QBUVCUUILW6044-87-31 21:02:0056.9[facility] KadkagcJGVNXCLRXW7651-01-18 21:02:00 2.7[facility] PiqdnogQTQVQNWQHT1472-31-69 21:02:000.4[facility]annHEMATOLOGY 2015-03-11 21:02:009.9[facility] QtvdkywHHULYZZMOI7340-01-06 21:02:0030.1[facility]annCARDIAC DYGOSVO3908-46-97 09:33:00<0.02[facility]annCARDIAC ENZYMES 2015-03-05 06:16:00<0.02[facility]annCHEM DGJWB4212-29-07 06:16:001.1 [facility]annCHE[facility] AAPJC6139-13-18 06:16:003.5[facility]annCHEM PANEL 2015-03-05 06:16:000.5[facility]annCHEM LMRVW4962-02-38 06:16:000.1[facility]annCHEM YKADD7316-92-56 06:16:0025[facility]annCHEM LZPEC3649-60-19 06:16:0021[facility]annCHEM JIANH0425-50-35 06:16:003.7[facility]annCHEM SFFAO4624-45-34 06:16:51648Kxpjqkwn HermannCHEM FDFEZ6010-96-58 06:16:000.6 [facility]annCHE[facility] OEWMO2825-34-30 06:16:007.2[facility]annCHEM PANEL 2015-03-05 06:16:72725Ycckbusv GrpcbgtBQMABSLZLCWO7607-07-25 06:16:0012.6 [facility] AuaymqvQCTVXSDEYADU1431-85-29 06:16:0078[facility] HermannELECTROLYTES 2015-03-05 06:16:009.6[facility] RpmoeunQRWPLSYPOEMD4934-96-32 06:16:0029[facility] XpqqbapCFMXZYGWFDHG5691-92-67 06:16:003.6[facility] QockifjLXOBBLUKRBLS5693-81-61 06:16:39878Ahrjzzla TzbvkvfJXQKIIWWFTTH4725-53-01 06:16:64168Wftetkif Check HATGILLIOXKC9428-68-49 06:16:000.8[facility] BvmprkiTNFJZABFIUEC2838-39-10 06:16:009[facility] FelalkjTDETUBNUCKCO2028-64-68 06:16:0096[facility] Check OKTLXCSOUZ8741-57-63 06:16:002.6[facility] IyapczvWNMCNLCICI0350-63-49 06:16:000.9 [facility] BsnkglhEOFJELCHVF0349-39-39 06:16:000.7[facility]annHEMATOLOGY 2015-03-05 06:16:001.7[facility] RiwxvsvOXBHJTOWKG5909-08-97 06:16:006.7[facility] DwnergfWYLHPJLGKT5540-75-17 06:16:0025.0[facility] ArnifypFFUQPQTBQH0969-04-73 06:16:0064.3[facility] MfpmmfhLOJWFFNNRA2155-79-21 06:16:008.3[facility] NTKZKVBWTE4774-73-62 06:16:000.2[facility] IetaqegVEWTFXOYWA4308-30-84 06:16:000.1 [facility] FotpwsxTBXLRSLMVM9119-25-63 06:16:0087.7[facility]annHEMATOLOGY 2015-03-05 06:16:0039.7[facility] FhdwkgyFJUUFQHSWZ4758-90-46 06:16:008.0[facility] RfsxudlCWSCFUFLTD0279-42-12 06:16:64985Dfghovjl KilnlzpVRRPTJEBOA2571-87-79 06:16:0014.6[facility] XelgmsvOZXIQCZDNX1519-97-95 06:16:0032.4[facility] Check VHHTLVYIHU5533-40-38 06:16:00 Test Item Value Reference Range Interpretation Comments MCH (test code = MCH) 28.4 pg 27.0-31.0 [facility] TmgiypyJNHTUJDLML1587-16-14 06:16:0010.5[facility]annHEMATOLOGY 2015-03-05 06:16:004.53[facility] NyistwoDCUQZMLYYV7041-80-96 06:16:0012.9[facility]annCHEM IPVKW9120-55-02 09:16:002.0[facility]annCHEM RARBS3801-35-01 09:16:003.6[facility]annCHEM HCMCK2741-06-55 09:16:40993Nshworvh HermannCHEM PVCMT9526-17-01 09:16:0017[facility]annCHEM OZZHX9462-86-18 09:16:003.3 [facility]annCHE[facility] JIOKV5624-89-30 09:16:001.1[facility]annCHEM PANEL 2015-02-25 09:16:006.3[facility]annCHEM KPQJO3601-42-93 09:16:0021[facility]annCHEM IWYKZ0201-47-78 09:16:003.0[facility]annCHEM VFURG3711-81-51 09:16:000.5[facility]annCHEM BGVHJ1148-98-65 09:16:77708Wqnqgpzs HermannCHEM UYIAN4345-80-31 09:16:0011[facility]annCHEM QLPSK3670-80-23 09:16:009.1 [facility]annCHE[facility] CTIQT7041-75-55 09:16:0099[facility]annCHEM PANEL 2015-02-25 09:16:008[facility]annCHEM IMAAT5524-92-67 09:16:33747Cgllqvda HermannCHEM DEWEV0350-88-57 09:16:000.7[facility]annCHEM WUGYQ2265-08-37 09:16:008.9[facility]annCHEM XPSWA9148-78-55 09:16:74980Qbiyosax HermannCHEM TONJV6766-01-81 09:16:0028[facility]annCHEM PMBHJ0144-66-14 09:16:003.9 [facility] IqcmzyjFCJQTEXFZY9617-77-13 09:16:16477Hfyqfath HermannHEMATOLOGY 2015-02-25 09:16:008.8[facility] GziudkkJJLJADDOFY3516-66-17 09:16:0014.9[facility] VufalgqEBTWJKRQQB5799-79-65 09:16:005.9[facility] KdnacseRTDRGJCQOQ2291-04-39 09:16:0088.4[facility] SmimhctFHSMSGLYOD4086-81-14 09:16:0037.2[facility] Check IPCFNKYMZB0307-76-92 09:16:00 Test Item Value Reference Range Interpretation Comments MCH (test code = MCH) 28.6 pg 27.0-31.0 [facility] CbpguftYUAIVOOWSV3877-59-57 09:16:0032.4[facility]annHEMATOLOGY 2015-02-25 09:16:004.21[facility] SvhjbonISISVDIYFX7166-44-74 09:16:0012.0[facility] LpawhlwMTJSJSDDGG4442-96-91 09:16:0031.9[facility] OqvgunnQKTISDLESZ4030-66-95 09:16:000.8[facility] WcznvmmNRRLNTPHBG2637-06-40 09:16:003.1[facility] Check UAEULKCDAJ8809-17-66 09:16:0011.6[facility] RsuxmjzAQZGAMWFXE9517-18-89 09:16:00 2.9[facility] FcfayjmBUKAEIPRMG9956-24-18 09:16:0052.8[facility]annHEMATOLOGY 2015-02-25 09:16:000.7[facility] DrwcesrVYIPQLVDQM4042-82-25 09:16:001.9[facility] FxirymzCMQWSZAFAX3722-41-95 09:16:000.2[facility]annCARDIAC EXLWANP5764-18-18 04:30:0074[facility]annCARDIAC YGQGPQE5498-59-37 04:30:001.2[facility] CARDIAC KWCCMDP1150-28-22 04:30:00<0.02[facility]annCARDIAC ENZYMES 2015-02-25 04:30:000.9[facility]annCARDIAC CDLQNCL3526-09-68 23:29:00<0.02 [facility]annCARDIAC MTPSYUU6725-72-21 23:29:000.7[facility]annCARDIAC SOATLSG1286-25-83 23:29:0068[facility]annCARDIAC BUWUAFU4137-25-58 23:29:00 1.0[facility]annCARDIAC VADUWJA2333-97-70 17:33:000.9[facility]annCARDIAC PFAWEXK1588-14-75 17:33:00<0.02[facility]annCARDIAC MVDCFYV2320-54-98 17:33:000.7[facility]annCARDIAC KOXNGSY3212-50-87 17:33:0076[facility] CHEM WVEBD6151-84-25 17:33:0090[facility] HermannCHEM SGUSA8698-93-95 17:33:003.1 [facility]annCHEM JOGDE0702-39-45 17:33:02663Gijcgdez HermannCHEM PANEL 2015-02-24 17:33:000.3[facility] HermannCHEM QKRII4493-44-36 17:33:001.1[facility] HermannCHEM KEXYG3847-18-31 17:33:007.3[facility] HermannCHEM VJGLD0807-29-93 17:33:0012[facility]annCHEM KQFIM8825-05-89 17:33:000.8[facility] HermannCHEM GCZGD9761-03-38 17:33:36591Kldiolfx HermannCHEM SPXQJ2278-53-09 17:33:0088 [facility]annCHEM JDXUC1027-35-85 17:33:003.3[facility] HermannCHEM PANEL 2015-02-24 17:33:79730Diszsuvd HermannCHEM BUBVU4876-24-52 17:33:0010[facility] HermannCHEM AAWGF5530-86-74 17:33:0015[facility] HermannCHEM OECRS1950 17:33:0022[facility] HermannCHEM HMYRF9371-82-32 17:33:008.9[facility] HermannCHEM YMZXK1871-62-59 17:33:0030[facility] HermannCHEM BWEUD2330-67-16 17:33:006.6 [facility]annCHEM XFICB9406-51-09 17:33:003.5[facility] HermannHEMATOLOGY 2015-02-24 17:33:0055.9[facility] ChfffqhDRKTPKRCBP6257-49-26 17:33:0028.7[facility] KzwwhyuTQWXLSHPZJ6261-82-24 17:33:003.7[facility] VmmkvilFMXAQNJNHI9250-31-49 17:33:000.7[facility] UofarefPDBXKAQPSN0231-12-23 17:33:001.9[facility] DBGYMPTLVZ1574-27-73 17:33:002.2[facility] UhchdgcFDXWDJRLGC4701-59-47 17:33:00 12.5[facility] OgwakfkGEYLSXGWND1131-07-32 17:33:000.0[facility]annHEMATOLOGY 2015-02-24 17:33:000.1[facility] LbyoxerFKATXRDMTL2658-08-66 17:33:000.8[facility] TcacngxIWXNQNUDOA6481-15-04 17:33:008.8[facility] HiwhtnjIYNOKYGTCW4363-95-20 17:33:00 Test Item Value Reference Range Interpretation Comments MCH (test code = MCH) 28.1 pg 27.0-31.0 [facility] EczkzhiBOLXFUKVJZ5421-64-19 17:33:0014.8[facility] HermannHEMATOLOGY 2015-02-24 17:33:0032.2[facility] XikxcwpYWVQIXWTPR3108-72-90 17:33:09130Wwmrvjbg JwimdvnTXXDZMMPHH3703-59-00 17:33:0011.4[facility] FeslsqyHXZTKBBHXR1021-90-97 17:33:004.04[facility] YdwrcwmSYHMADCAXP0984-90-60 17:33:006.5[facility] Check PUAJGXAYJV0292-58-87 17:33:0035.3[facility] RnxncvtPIDHUOMRLF7856-98-84 17:33:00 87.2[facility] HermannCARDIAC BIPKDKL6970-26-28 09:54:006[facility]annCARDIAC OAXGOPE1914-80-05 09:54:00<0.02[facility]annCARDIAC JBHGKCU0368-42-77 09:54:001.0[facility]annCARDIAC XCPKXDR1389-31-94 09:54:0077Mem[facility] Check CHEM OXKUI0799-26-87 09:54:001.8[facility] HermannCHEM GWMGC1370-22-07 09:54:33862 [facility]annCHEM FSCXS3398-49-95 09:54:78335Okqoqiip HermannCHEM PANEL 2015-02-17 09:54:003.8[facility] HermannCHEM ZDQOU6498-28-37 09:54:13018Mzxnrpre HermannCHEM ANGGG2934-10-49 09:54:008.6[facility] HermannCHEM FFJPN3456-86-47 09:54:0011.8[facility] HermannCHEM HLNFH5049-93-00 09:54:0025[facility] HermannCHEM QZQRF4868-05-00 09:54:000.6[facility] HermannCHEM EYMRU3189-60-59 09:54:006 [facility]annCHEM VRUFG4189-14-35 09:54:0072[facility] HermannHEMATOLOGY 2015-02-17 09:54:0011.5[facility] WytpbnrZSZZGB9294-65-12 09:54:0051[facility] PdvaseiWKNJYS0479-06-56 09:54:0017[facility] HpowyrrRVCWVZ3477-51-67 09:54:0096 [facility] WrfiyneZABFPS2616-09-30 09:54:78900Dwhqcxtr TrmwwxfDBONTI9226-01-77 09:54:0084[facility] IxdjsnxXWVIUV5274-75-28 09:54:003.22[facility] HermannSPECIAL SYZHFVXAY9907-76-09 09:54:005.8[facility] HermannCARDIAC QVCPSXY8107-66-95 04:20:00<0.02[facility] HermannCARDIAC ZESLTNV8869-59-97 04:20:0092[facility] HermannCARDIAC IXHSQCO5635-97-01 04:20:001.2[facility] HermannCARDIAC ENZYMES 2015-02-16 22:59:001.2[facility] HermannCARDIAC WGMKXGM4029-29-55 22:59:001.3 [facility]annCARDIAC GILHXDJ4625-11-32 22:59:0093[facility] HermannCARDIAC DNEYVLX1801-19-68 22:59:00<0.02[facility] HermannCARDIAC MMFCCLD6203-44-34 22:59:004[facility] HermannCHEM BHDJD5999-65-81 22:59:12418Akzqiinp HermannCHEM JOWWW4718-14-94 22:59:001.0[facility] HermannCHEM YGVES1081-88-21 22:59:003.6 [facility]annCHEM IOXRK2727-11-85 22:59:000.4[facility] HermannCHEM PANEL 2015-02-16 22:59:000.1[facility] HermannCHEM KYKRN4478-47-66 22:59:000.5[facility] HermannCHEM XFBEO2936-23-62 22:59:007.3[facility] HermannCHEM UQQTV5830-36-57 22:59:97731Irnlujio HermannCHEM JGETW5809-19-17 22:59:0015[facility] HermannCHEM SWQBH8224-61-70 22:59:0021[facility] HermannCHEM INYZS7182-42-28 22:59:003.7 [facility]annCHEM QJXDD6675-59-03 22:59:003.1[facility] HermannCHEM PANEL 2015-02-16 22:59:001.9[facility] HermannCHEM PCYAM8074-27-27 22:59:0090[facility] HermannCHEM MEUET3293-19-23 22:59:009.0[facility] HermannCHEM NGRBI1980-25-01 22:59:0028[facility] HermannCHEM WYNPN3215-85-68 22:59:30651Uphgsqsn HermannCHEM SVDOU8946-66-24 22:59:000.8[facility] HermannCHEM WUTHH5626-10-65 22:59:0011 [facility]annCHEM VVOPP1281-37-45 22:59:003.5[facility] HermannCHEM PANEL 2015-02-16 22:59:70102Loblzryn HermannCHEM IOTLI1768-00-12 22:59:0076[facility] HermannCHEM LZHNR0274-27-97 22:59:007.5[facility] NdwnuctMWULNZSEZY5353-52-39 22:59:003.3[facility] GqlpdhsLCLZBYUGWC0557-50-37 22:59:009.1[facility] Check ULKQDWMZHF2570-68-45 22:59:0028.9[facility] KxeisxoUWYDDREKNL9399-85-21 22:59:00 58.3[facility] FryeaatPNUBCWJWVN6898-30-00 22:59:003.8[facility] HermannHEMATOLOGY 2015-02-16 22:59:000.4[facility] JrqwtabLOHWRJEEVT5251-52-81 22:59:000.6[facility] EgeyisoCSYEUFZRUR7778-73-56 22:59:001.9[facility] CefxrkbJCKLEJQHIU9666-41-69 22:59:000.2[facility] FowrqffAJXGVEWYAK5257-82-28 22:59:000.0[facility] Check IQLDCYFDCB0388-21-34 22:59:00 Test Item Value Reference Range Interpretation Comments PTT (test code = PTT) 36.0 s 22.9-35.8 [facility] CueyvboSUUFUTLAXQ6780-58-49 22:59:00 Test Item Value Reference Range Interpretation Comments PT (test code = PT) 12.9 s 12.0-14.7 [facility] NgggtdhFGMLDGKSUO9987-94-35 22:59:000.97[facility] HermannHEMATOLOGY 2015-02-16 22:59:53900Iobfuxhm NyjxzxcEBAKPOUZUK4272-18-45 22:59:0014.7[facility] UxixldlJZWEWFONEL9595-43-12 22:59:008.7[facility] XbsgtcnOVZRHDGRFB3838-77-36 22:59:0032.6[facility] SaoqoypAUEOBQPIZN0560-96-23 22:59:0039.5[facility] Check OEXEOGBYRM3749-47-31 22:59:0087.3[facility] KrsjmuyNECSIBBRXH5918-24-52 22:59:00 Test Item Value Reference Range Interpretation Comments MCH (test code = MCH) 28.4 pg 27.0-31.0 [facility] AdcrsotGMLNFLYTTW0386-50-98 22:59:004.52[facility] HermannHEMATOLOGY 2015-02-16 22:59:0012.9[facility] YsrmnsbRZJJIYOSJJ9804-86-84 22:59:006.5[facility] OyfocykHDTLOGTBH1309-13-98 22:59:0046[facility] HermannCARDIAC QHHFFXC4725-77-03 21:17:0015[facility] HermannCARDIAC DHDXBQF8176-47-43 21:17:00<0.02[facility] HermannCARDIAC NFDAVBB8279-36-19 21:17:0080[facility] HermannCARDIAC ENZYMES 2013-12-22 21:17:00<0.5[facility] HermannCARDIAC MXSUSEX8870-26-65 21:17:00 <0.6[facility] HermannCHEM LEEPX3384-06-72 21:17:72627Yhiaxrcn HermannCHEM RMDYN0841-29-51 21:17:003.6[facility] HermannCHEM UUZUA8141-01-89 21:17:0017 [facility] HermannCHEM ZAXME7048-74-00 21:17:001.1[facility] HermannCHEM PANEL 2013-12-22 21:17:95552Teskkqgf HermannCHEM AXBIS3655-94-98 21:17:0034[facility] HermannCHEM IKKOD3394-66-34 21:17:003.9[facility] HermannCHEM QMRYC4932-87-83 21:17:0089[facility] HermannCHEM IJGGO1502-14-07 21:17:0022[facility] HermannCHEM UCMNG8776-45-78 21:17:000.6[facility] HermannCHEM GMZJE6230-15-15 21:17:005.5 [facility] HermannCHEM HSVAN5133-17-00 21:17:000.6[facility] HermannCHEM PANEL 2013-12-22 21:17:0010[facility] HermannCHEM SWFJT2617-97-13 21:17:003.5[facility] HermannCHEM HJZWK6447-83-30 21:17:77395Fbenbqta HermannCHEM KHDAJ5333-69-76 21:17:84009Gyebaulk HermannCHEM MMMNM3893-73-33 21:17:0029[facility] HermannCHEM HLQRI4244-31-33 21:17:007.5[facility] HermannCHEM SUSLD4817-03-34 21:17:009.2 [facility]annDRUG WYNUZE7222-35-40 21:17:00Negative *NA*(12/22/13 4:17 PM) [facility]DR[facility] KGDLBA0332-21-41 21:17:00Negative *NA*(12/22/13 4:17 PM) [facility]annDR[facility] UPVVVP7085-84-83 21:17:00See Note 4*NA*(12/22/13 4:17 PM) [facility]annDR[facility] LHXLHZ6217-40-16 21:17:00Negative *NA*(12/22/13 4:17 PM) [facility]annDR[facility] KQSZFN6680-41-08 21:17:00Negative *NA*(12/22/13 4:17 PM) [facility]annDR[facility] WGNPND5077-59-84 21:17:00Negative *NA*(12/22/13 4:17 PM) [facility]annDR[facility] BWGAIW7374-20-83 21:17:00Negative *NA*(12/22/13 4:17 PM) [facility]annDR[facility] SXMTLL9762-16-55 21:17:00Negative *NA*(12/22/13 4:17 PM) [facility] EvakilwAKMSRQWSXF2351-08-54 21:17:00 Test Item Value Reference Range Interpretation Comments PTT (test code = PTT) 35.2 s 22.9-35.8 [facility] EmofyuxRXKNVHDMYF2666-22-02 21:17:00 Test Item Value Reference Range Interpretation Comments PT (test code = PT) 12.2 s 12.0-14.7 [facility] OrxmwhqDUCSZIZVHW6752-82-71 21:17:000.91[facility] HermannHEMATOLOGY 2013-12-22 21:17:008.4[facility] QjgrmumDJCJULWMDP0494-50-10 21:17:00 Test Item Value Reference Range Interpretation Comments MCH (test code = MCH) 29.2 pg 27.0-31.0 [facility] UgofpjjJQKISKOFWX3542-74-83 21:17:0033.4[facility] HermannHEMATOLOGY 2013-12-22 21:17:0014.5[facility] FlnpaqnNFGKWHCQEU7300-57-33 21:17:49832Hjgyvuaa EbokwzpLBPZBWDWDH7510-39-28 21:17:0041.6[facility] MghdkiwKDESDWOPNJ9239-85-14 21:17:0087.5[facility] RxgdfcoKEPGTYTLHZ6681-55-39 21:17:004.76[facility] Maciej MMRNDIVAZT7081-15-44 21:17:0013.9[facility] QxkcepoBJQUNQTLUI8205-23-61 21:17:00 8.5[facility] MqobtxzGYEYFWMCCF5611-59-44 21:17:000.2[facility] HermannHEMATOLOGY 2013-12-22 21:17:000.0[facility] DhldoqjFUABIIIPEH9914-29-73 21:17:0066.1[facility] PwjqcysHZDBIIPFTV9526-86-36 21:17:006.1[facility] UwabuaaFCCIZYDZSI7707-45-14 21:17:0025.0[facility] PjblqusGXSBCSGIFP7977-47-38 21:17:002.4[facility] Maciej YYQJGZSEGA4480-48-12 21:17:000.4[facility] CjkwccjZSFWVZOTGM9364-49-58 21:17:002.1 [facility] YujvrclSHFKLZCXEO3772-51-93 21:17:000.5[facility] 2013-[facility]22 21:17:005.6[facility] DYDDB0917-30-40 21:17:00Trace *ABN*(12/22/13 4:17 PM)[facility] YMXEV4458-57-11 21:17:00Negative *NA*(12/22/13 4:17 PM)[facility] CLZKY2662-71-51 21:17:000.2 [facility] VUZSH4998-65-09 21:17:00Small *ABN*(12/22/13 4:17 PM) [facility] FZQUD7591-39-16 21:17:00Negative *NA*(12/22/13 4:17 PM) [facility] YHZKL3193-01-24 21:17:00Negative (12/22/13 4:17 PM) [facility] PDLYM5844-45-44 21:17:00Clear (12/22/13 4:17 PM) [facility] VYDUU8039-42-91 21:17:00Yellow *NA*(12/22/13 4:17 PM) [facility] XQMFS7672-92-20 21:17:00 Test Item Value Reference Range Interpretation Comments UA pH (test code = UA pH) 6.0 1 5.0-8.0 [facility] SPUDH1661-76-11 21:17:00 Test Item Value Reference Range Interpretation Comments UA Spec Grav (test code = UA Spec 1.015 1 Grav) [facility] VFSNF3059-21-92 21:17:00Negative (12/22/13 4:17 PM) [facility] YNOVC1064-53-81 21:17:00Negative (12/22/13 4:17 PM) [facility]CHE[facility] WAEUI1409-16-65 15:55:312.7[facility]annCHEM PANEL 2013-12-17 15:55:312.2[facility] LdimzuqBHZTDAYSJKNJ4334-99-64 15:55:3110.5 [facility] ZejyrijLIQNYPBJLMFJ3312-78-89 15:55:3191[facility]annELECTROLYTES 2013-12-17 15:55:3110[facility] PkhvrsiNJWKOVLXDAUH5665-16-99 15:55:310.8[facility] FjjrhrfFRNSQIYXNOSC6173-62-83 15:55:69879Jvvtooui QgsmkdhEMMSCTMJKDDB9602-24-77 15:55:3187[facility] BdwtbztWWZXPBVPVCQV6161-31-26 15:55:3130[facility] Check WIFZWEQCXZFQ1001-38-31 15:55:314.5[facility] QtqbzmwQVCTMNIFWJAS5173-51-99 15:55:35233Esltzmbi SyrdldrOFFIHTXIROWO7951-15-73 15:55:318.6[facility] Check LDVAEDRHIG2078-63-16 15:55:310.97[facility] XpibzvcJNFJBQJPBZ1474-48-23 15:55:31 Test Item Value Reference Range Interpretation Comments PTT (test code = PTT) 32.4 s 22.9-35.8 [facility] XdztaefMMJNDVHZWH1653-92-97 15:55:31 Test Item Value Reference Range Interpretation Comments PT (test code = PT) 12.8 s 12.0-14.7 [facility] EhpyqodNHTWVEUJSV8938-55-67 15:55:3113.7[facility]annHEMATOLOGY 2013-12-17 15:55:314.88[facility] XqhjayrMAOCHJPMMK0023-98-64 15:55:31 Test Item Value Reference Range Interpretation Comments MCH (test code = MCH) 28.1 pg 27.0-31.0 [facility] QcsjshfQVLWEQTKKB3534-36-36 15:55:3142.1[facility]HE[facility]OLOGY 2013-12-17 15:55:3186.4[facility] LfwdxjhQNKIPONCEV7537-95-09 15:55:3114.3[facility] QyedkpdRZBKGXNRRA1567-88-88 15:55:3132.5[facility] NwgsypyIMNQFCYYTL4433-51-04 15:55:318.4[facility] IekkivtSMXSTZKRQV4134-39-26 15:55:49516Htvjidgy Maciej ZXKYWRSXIR2403-31-69 15:55:317.2[facility] QmefxyuBAAVPUHTTI2827-33-54 15:55:31 10.7[facility] VhsqmmeMHUGTOCQNJ8236-01-04 15:55:3127.2[facility]annHEMATOLOGY 2013-12-17 15:55:311.9[facility] KdmlefxZASVNODFYR7194-28-89 15:55:313.2[facility] AqajpkfYUCRMAHFUO1745-01-14 15:55:310.6[facility] PevirqjATWWBUGILP3833-39-76 15:55:314.2[facility] MxbjdqeNKZSENZQNT1695-28-51 15:55:310.2[facility] LFSUTWWIKO4588-82-12 15:55:310.8[facility] SobqtfuORJIOEPQTK2674-25-86 15:55:31 58.3[facility] HermannPARATHYROID EORCHEG7231-20-32 15:55:191.11[facility] Check PARATHYROID JVCKGGJ2329-88-11 15:55:191.17[facility]annDRUG TDEOBT4560-04-38 03:45:57Negative *NA*(12/16/13 10:45 PM)[facility] JRGXVT9208-73-48 03:45:57Positive *ABN*(12/16/13 10:45 PM)[facility] MIHEZU2387-69-94 03:45:57Negative *NA*(12/16/13 10:45 PM)[facility] TAXJGK1114-37-87 03:45:57Negative *NA*(12/16/13 10:45 PM)[facility] JKMZMI5513-57-86 03:45:57Negative *NA*(12/16/13 10:45 PM)[facility]DR[facility] CFBNIX2230-77-82 03:45:57See Note 6(12/16/13 10:45 PM)[facility] HFBZYL2621-58-93 03:45:57Negative *NA*(12/16/13 10:45 PM)[facility]annDR[facility] XACGBI3000-39-14 03:45:57Negative *NA*(12/16/13 10:45 PM)[facility]annCARDIAC RUSZJRV6451-79-71 03:45:0056[facility]annCARDIAC XSMNCOW5761-37-89 03:45:00<0.010[facility]annCARDIAC FKWMZPI9034-86-16 03:45:00<0.02[facility]annCARDIAC ENZYMES 2013-12-17 03:45:0013[facility] LpqzwpeAJOZID7874-71-83 03:45:0018[facility]iej TPIMZD9828-44-64 03:45:0088[facility] AzpsvfcVPTMMX3359-57-76 03:45:0088[facility] UdcaoycAMNYKD9625-04-78 03:45:003.08[facility] JevvccyPAOQOD1105-54-59 03:45:13258 [facility] MylumeqEPXFSE8129-44-28 03:45:0051[facility]annSPECIAL CHEMISTRY 2013-12-17 03:45:005.3[facility] HermannTHYROID KYKOY3010-41-45 03:45:000.870 [facility]annCARDIAC XVZRDJQ6583-49-21 22:09:0042[facility]annCARDIAC XUNJKHU7483-93-70 22:09:00<0.02[facility]annCHEM PTEPW6653-63-09 19:30:00 1.3[facility] BeakuzfGNJQEKQSZM7482-79-72 19:30:00 Test Item Value Reference Range Interpretation Comments PT (test code = PT) 11.8 s 12.0-14.7 [facility] IqyacnhMTASLBBHTV9931-08-26 19:30:000.87[facility]annHEMATOLOGY 2013-12-16 19:30:00 Test Item Value Reference Range Interpretation Comments PTT (test code = PTT) 31.2 s 22.9-35.8 [facility] BtvxypeDTFSZZZOUQ3232-38-24 19:30:004.69[facility]annHEMATOLOGY 2013-12-16 19:30:006.6[facility] TfqkhggYIJYWVSGBI8884-84-14 19:30:0040.5[facility] MltmnhlBTWKNVTWJO7782-52-47 19:30:0086.4[facility] XqmqlprEHLOVLAFHY3698-06-86 19:30:0013.6[facility] RqqgjpoBWYPPDKBEC4879-73-91 19:30:00 Test Item Value Reference Range Interpretation Comments MCH (test code = MCH) 29.0 pg 27.0-31.0 [facility] ZqugsadAACUKHDBWB5577-05-86 19:30:0033.6[facility]annHEMATOLOGY 2013-12-16 19:30:98937Dsqmhobe GcvikzpQJWPPVWIMO3730-89-37 19:30:0013.4[facility] QdxqrbqJNSACRWQVN7603-25-45 19:30:008.6[facility] VgdvkwmKSXLPJSGWV5751-26-90 19:30:000.8[facility] GvracmfJQEXOFDKCY1444-31-70 19:30:000.0[facility] Check PCTAAZAUEV3625-63-61 19:30:0012.1[facility] EzuptzqHNOEYTYHZS6196-57-72 19:30:00 3.8[facility] UkozexkDPQACZHREZ5687-48-19 19:30:000.6[facility]annHEMATOLOGY 2013-12-16 19:30:003.9[facility] KltsvenSGHYNZLAFJ4021-86-83 19:30:000.3[facility] BflfigbAYWWQVREYM5011-88-40 19:30:001.6[facility] VtuklmjTBIVTFLNTD6374-74-36 19:30:0025.0[facility] FievmtdBWXTUSCAGD1547-60-64 19:30:0058.5[facility] Check CHEM DFPBJ4481-63-38 17:43:2479[facility] HermannCHEM ZMUKY3810-78-01 17:43:240.9 [facility]annCHEM GKQHO6165-61-07 17:43:42829Ktdhnvsd HermannCHEM PANEL 2013-12-16 17:43:244.5[facility] HermannCHEM VCNNV6636-98-42 17:43:20164Iaeitlfp HermannCHEM NHZDT8190-37-56 17:43:2478[facility] HermannCHEM SGRFZ2278-09-12 17:43:2411[facility]annCHEM ZBVDR1482-21-81 17:43:241.0[facility] HermannCHEM GKKEM0128-60-08 17:43:2412[facility] HermannCHEM ANTLV0122-85-53 17:43:243.6 [facility]annCHEM NFVPU5273-93-37 17:43:2416.5[facility]annCHEM PANEL 2013-12-16 17:43:247.2[facility] HermannCHEM TQUKO3633-97-38 17:43:2419[facility]annCHEM XEZGI3133-80-46 17:43:2423[facility] HermannCHEM BGZFI0478-65-18 17:43:249.2[facility] HermannCHEM PCRFY2329-56-97 17:43:240.3[facility] HermannCHEM PKTRT0058-36-57 17:43:243.6[facility] HermannCHEM DXKKH4662-09-96 17:43:2487 [facility]annCHEM ZKEVV1064-98-84 17:43:2431[facility] HermannCARDIAC ENZYMES 2013-12-16 17:43:0056[facility]annCARDIAC IBFFNVD9542-34-87 17:43:00<0.02 [facility]annCARDIAC APRGKKU4663-44-82 19:12:00<0.02[facility] CARDIAC UUGGSDX3598-87-64 19:12:0049[facility]annCARDIAC WNAOUXL0329-07-05 19:12:00<0.010[facility] RigyimeJJSNDQRIV8604-69-05 19:12:0036[facility] CARDIAC MWCGXRL9523-48-35 12:35:00<0.010[facility]annCARDIAC ENZYMES 2013-11-08 12:35:0054[facility]annCARDIAC FMHNKHP6015-71-45 12:35:00<0.02 [facility]annCARDIAC OTDAHBP7719-48-19 08:36:00<0.02[facility] PPKSUJXGRGRH1309-19-62 08:36:0011.4[facility] HouhumfHLTHBGZRJLBY3859-98-94 08:36:0069[facility] WdjpmhfCWXJBGDFNOUZ5837-12-00 08:36:009.2[facility] FIHPPNSLPMWF9872-50-14 08:36:0027[facility] ClicyoiZVYEHBXMZXCH5274-94-68 08:36:00 105[facility] GgnkzsnSHJZHHKJJHAS3032-82-71 08:36:003.4[facility] KGICGAIEGGLX5727-55-33 08:36:09635Uxzowtih QxilxjlMRHTJNQGBCFS4032-94-53 08:36:0011[facility] HymnsoyIOPUMCHLFZNF3213-38-41 08:36:0084[facility] YZLEBCGUKTFK8033-55-22 08:36:001.0[facility] YzefklpJKJXUVRSWH1771-90-82 08:36:00 0.1[facility] MbrtcluXSPEBUWUDQ8912-34-42 08:36:000.2[facility]annHEMATOLOGY 2013-11-08 08:36:000.8[facility] MdjsjijEKXZZBZSCC3041-08-37 08:36:0072.5[facility] VqkffglXWWYSUEMCO7901-51-17 08:36:0017.0[facility] EscgafwHZHCTXZDYV3089-35-15 08:36:002.1[facility] KonjbmrRNWZHPDWIP1485-66-78 08:36:007.8[facility] TVDQVQKXHW3641-46-99 08:36:007.6[facility] BfaqrtiWKPDIXGJWS8088-18-06 08:36:000.6 [facility] NnnxkrzYQXKIRBTUP4824-64-61 08:36:001.8[facility]annHEMATOLOGY 2013-11-08 08:36:008.7[facility] EakgmrfLOWGNZHEPS5136-17-40 08:36:0014.0[facility] ExevlqpRXYFDMQZRR8515-20-56 08:36:16582Pmaooyid AlkinasNYNPVFUVTH8707-25-07 08:36:0033.9[facility] LchcfquKJCXJLMGGP5320-95-81 08:36:004.65[facility] FMMAAARAQT0959-21-14 08:36:0010.6[facility] UjqimebLMKZCGVBFQ3656-28-05 08:36:00 Test Item Value Reference Range Interpretation Comments MCH (test code = MCH) 29.3 pg 27.0-31.0 [facility] DhgyorrLLCVEGKDNU2887-67-78 08:36:0086.6[facility]annHEMATOLOGY 2013-11-08 08:36:0013.6[facility] IfmtmgsWUVOSNCQJE8737-57-98 08:36:0040.2[facility]
[2020-12-29 17:54] LABS: Basophils % 0.9 % (0-1.3); Hematocrit 41.8 % (36.0-45.0); Lymphocytes % 31.2 % (15.3-44.8); MPV 8.3 fL (7.6-11.3); RBC Red Blood Cell Count 4.84 M/uL (3.86-4.86)
[2020-12-29 18:06] LABS: ALT/SGPT 14 U/L (12-78); AST/SGOT 13 U/L (15-37); Albumin 3.8 g/dL (3.4-5.0); Alkaline Phosphatase 89 U/L (45-117); BUN Blood Urea Nitrogen 5 mg/dL (7-18); Bicarbonate 26 mmol/L (21-32); Bilirubin Direct 0.1 mg/dL (0-0.2); Bilirubin Total 0.4 mg/dL (0.2-1.0); Glucose Level 88 mg/dL (74-106); Lipase 223 U/L (73-393); Protein, Total 7.5 g/dL (6.4-8.2); Sodium Level 142 mmol/L (136-145)
--- NOTE | 2020-12-29 18:53 | RAD REPORT ---
EXAM DESCRIPTION: CT - Abdomen Pelvis W Contrast - 12/29/2020 6:36 pm CLINICAL HISTORY: ABD PAIN COMPARISON: Abdomen Pelvis W Contrast dated 12/15/2020 TECHNIQUE: Biphasic, helical CT imaging of the abdomen and pelvis was performed following 100 ml non -ionic IV contrast. No oral contrast administered. All CT scans are performed using dose optimization technique as appropriate and may include automated exposure control or mA/KV adjustment according to patient size. FINDINGS: Fibrotic lung base changes are present with no acute finding. No cardiomegaly. The liver, spleen, and pancreas show no suspicious findings. Gallbladder and biliary tree are also wi thout suspicious finding. Symmetric renal function is seen with no hydronephrosis or suspicious renal mass. No pyelonephritis o r acute parenchymal process. No bladder abnormalities. No adrenal abnormalities. Lobulated multi fibr oid uterus is present. Ovary detail is limited. It is difficult to distinguish ovaries abutting the u terus from the multiple intramural and exophytic fibroids. No gross change from December 15 imaging. Large amount of stool fills but does not dilate the colon. An acute colon process is not identified. No gastric dilatation or small bowel dilatation. No free air or pneumatosis. No hernia, mass or bul ky lymphadenopathy. No suspicious bony findings. Extensive degenerative and postsurgical changes are present. IMPRESSION: No bowel obstruction, free air or surgically emergent finding. Patient has a large amoun t of stool in the colon. Patient has a large lobulated multi fibroid uterus with intramural and exophytic fibroid seen. Ovarie s are difficult to separate from the uterus. Fine Hairer findings are not clearly different from December 15.
[2020-12-29] MEDS ORDERED: MORPHINE 4 MG/ML SYR ONE (18:55)
[2020-12-29] MEDS ORDERED: NA CHLORIDE 0.9% 1,000 ML ONE (18:55)
[2020-12-29] MEDS ORDERED: ONDANSETRON 4 MG/2 ML VIAL ONE (18:55)
--- NOTE | 2020-12-29 18:56 | ER ---
Nurse's Notes [facility] Name: Winsome Yepez Age: 70 yrs Sex: Female : 1950 Arrival Date: 12/29/2020 Time: 14:00 Bed 28 Private MD: Diagnosis: Generalized abdominal pain-chronic Presentation: 12/29 14:45 Chief complaint: Patient states: abdominal pain for 1 year, reports nausea and em vomiting, denies fever. Coronavirus screen: Client denies travel out of the [place] in the last 14 days. Ebola Screen: Patient negative for fever greater than or equal to 101.5 degrees Fahrenheit, and additional compatible Ebola Virus Disease symptoms Patient denies exposure to infectious person. Patient denies travel to an Ebola-affected area in the 21 days before illness onset. No symptoms or risks identified at this time. Initial Sepsis Screen: Does the patient meet any 2 criteria? No. Patient's initial sepsis screen is negative. Does the patient have a suspected source of infection? No. Patient's initial sepsis screen is negative. Risk Assessment: Do you want to hurt yourself or someone else? Patient reports no desire to harm self or others. Onset of symptoms was December 29, 2020. 14:45 Method Of Arrival: Ambulatory em 14:45 Acuity: CYNTHIA 3 em Historical: - Allergies: 14:47 PENICILLINS; em - PMHx: 14:47 Asthma; High Cholesterol; Hypertension; Myocardial infarction; Sickle Cell; em - PSHx: 14:47 low back; em - Immunization history:: Adult Immunizations up to date. - Social history:: Smoking status: Patient denies any tobacco usage or history of. Screenin:20 Abuse screen: Denies threats or abuse. Denies injuries from another. Nutritional zb screening: No deficits noted. Tuberculosis screening: No symptoms or risk factors identified. Fall Risk None identified. Assessment: 18:00 General: Appears uncomfortable, Behavior is anxious. Pain: Complains of pain in abdomen zb Pain currently is 10 out of 10 on a pain scale. Neuro: Level of Consciousness is awake, alert, obeys commands, Oriented to person, place, time, situation. Cardiovascular: Heart tones S1 S2 present. Respiratory: Airway is patent Respiratory effort is even, unlabored, Respiratory pattern is regular, symmetrical. GI: Abdomen is round Bowel sounds present X 4 quads. Abdomen is tender to palpation in epigastric area, right upper quadrant and left upper quadrant. Derm: Skin is intact. Musculoskeletal: Circulation, motion, and sensation intact. Range of motion: intact in all extremities. 19:22 Reassessment: Patient appears in no apparent distress at this time. Patient and/or zb family updated on plan of care and expected duration. Pain level reassessed. Patient is alert, oriented x 3, equal unlabored respirations, skin warm/dry/pink. patient ambulated with walker out. Taxi called for patient. food given. Patient states feeling better. Patient states symptoms have improved. Vital Signs: 14:45 BP 133 / 75; Pulse 73; Resp 18; Temp 97.6; Pulse Ox 99% on R/A; Weight 47.17 kg; Height em 5 ft. 0 in. (152.40 cm); Pain 10/10; 14:45 Body Mass Index 20.31 (47.17 kg, 152.40 cm) em ED Course: 14:00 Patient arrived in ED. mr 14:46 Triage completed. em 14:47 Arm band placed on. em 16:44 Chely Peace FNP-C is PHCP. kb 16:44 Cornelius Richards MD is Attending Physician. kb 17:05 Jada Sarabia RN is Primary Nurse. zb 18:00 Inserted saline lock: 22 gauge in right antecubital area, using aseptic technique. zb Blood collected. 18:36 CT Abd/Pelvis - IV Contrast Only In Process Unspecified. EDMS 19:22 Patient has correct armband on for positive identification. Placed in gown. Bed in low zb position. Call light in reach. Pulse ox on. NIBP on. Door closed. Noise minimized. 19:22 No provider procedures requiring assistance completed. IV discontinued, intact, zb bleeding controlled, No redness/swelling at site. Pressure dressing applied. Administered Medications: 18:51 Drug: morphine 4 mg {Note: RASS +0.} Route: IVP; Site: right antecubital; zb 19:00 Follow up: Response: No adverse reaction; Marked relief of symptoms; Pain is decreased; zb RASS: Alert and Calm (0) 18:51 Drug: Zofran (Ondansetron) 4 mg Route: IVP; Site: right antecubital; zb 19:00 Follow up: Response: No adverse reaction zb 18:51 Drug: NS 0.9% 1000 ml Route: IV; Rate: 1000 ml; Site: right antecubital; zb 19:00 Follow up: Response: No adverse reaction; IV Status: Completed infusion; IV Intake: zb 1000ml Intake: 19:00 IV: 1000ml; Total: 1000ml. zb Outcome: 18:56 Discharge ordered by . stephanie 19:22 Discharged to home ambulatory. zb 19:22 Condition: stable 19:22 Discharge instructions given to patient, Instructed on discharge instructions, follow up and referral plans. medication usage, Demonstrated understanding of instructions, follow-up care, medications, Prescriptions given X 1. 19:25 Patient left the ED. zb Signatures: Dispatcher [employer] Chely Wilde, TAVO-C EDUCATION SPECIALIST-Natali IslasozBrad RN Jada Domínguez RN RN zb
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
[2020-12-29 19:40] VITALS: BP 133/75; TEMP 97.6; O2SAT 99
== END 2020-12-29 19:25 | disposition home or self-care (01) ==
LOC: ER 13:55
DX: R10.84 Generalized abdominal pain (principal); I10 Essential (primary) hypertension; Z88.0 Allergy status to penicillin
CPT/HCPCS: 85025; 80048; 36415; 80076; 83690; 74177; Q9967; J7030; J2405; 96374; 96375; 99284

== ENCOUNTER 2021-01-06 13:05 | Emergency (ER) | payer OTHER ==
--- OUTSIDE RECORDS SUMMARY | 2021-01-06 13:20 | XMS REPORT | Continuity of Care Document ---
:1950 Author Organization [facility] t Address [address] [place] [address] Care Team Providers Name Role Phone UNKNOWN [...] 2017-01-16 Memoria 5-21 20:56:00 l CHEST 00:00: [place] PAIN 00 [facility]/16[facility] Diagnosis Active 2016-11-28 Mem oria 4-02 20:00:00 l PAIN 00:00: Maciej 00 Active 11/28/2016 [facility] FACIAL Diagnosis Active 2016-11-06 Mem oria SWELLING 3-11 18:35:00 l FACIAL 00:00: Maciej SWELLING 00 Active 11/06/2016 [facility] SYNCOPE Diagnosis Active 2017-02-18 Me moria 2-12 10:16:00 l SYNCOPE 00:00: Maciej 00 Active 10/10/2016 [facility] SICK Diagnosis Active 2017-0 2016-10-10 Mem oria 2-12 20:58:00 l SICK 00:00: [place] 00 Active 10/10/2016 [facility] CHEST Diagnosis Active 2016-03-12 Mem oria PAIN, 7-14 12:26:00 l HYPOTENSIO CHEST 00:00: Caroline nn N PAIN, 00 HYPOTENSIO N Active 03/11/2016 [facility] SOB Diagnosis Active 2016-03-11 Mem oria 7-14 15:11:00 l SOB 00:00: Maciej 00 Active 03/11/2016 [facility] BACK PAIN Diagnosis Active 2016-10-12 Memoria 1-17 14:26:00 l BACK 00:00: [place] PAIN 00 Active 09/14/2015 [facility] COPD, Diagnosis Active 2015-09-05 Mem oria CHEST PAIN 09-03 15:21:00 l COPD, 00:00: Maciej CHEST PAIN 00 Active 09/03/2015 [facility] HEADACHE Diagnosis Active 2014-082015-07-15 M emoria 09-14 17:17:00 l HEADACHE 00:00: Kristopher n 00 Active 07/15/2015 [facility] SOB/ Diagnosis Active 2014-082015-07-05 Mem oria WEAKNESS 09-03 01:33:00 l SOB/ 22:00: Maciej WEAKNESS 00 Active 07/04/2015 [facility] LOWER BACK Diagnosis Active 2014-082015-07-11 Memoria AND LEG 1 13:07:00 l PAIN LOWER 00:00: [place] BACK AND 00 LEG PAIN Active 07/04/2015 [facility] SHORTNESS Diagnosis Active 2014-082015-06-04 Memoria OF BREATH 0-06 01:54:00 l 19:00: [place] SHORTNESS 00 OF BREATH Active 06/03/2015 [facility] NAUSEA Diagnosis Active 2015-05-20 Mem oria 05-18 07:49:00 l NAUSEA 00:00: Maciej 00 Active 05/18/2015 [facility] FALL Diagnosis Active 2015-05-02 Mem oria 05-02 16:55:00 l FALL 00:00: Maciej 00 Active 05/02/2015 [facility] NECK AND Diagnosis Active 2015-03-30 M emoria SHOULDER 03-30 16:35:00 l PAIN NECK AND 00:00: Kristopher n SHOULDER 00 PAIN Active 03/30/2015 [facility] SOB/CHEST Diagnosis Active 2015-03-21 Memoria PAIN 03-21 15:46:00 l 00:00: [place] SOB/CHEST 00 PAIN Active 03/21/2015 [facility] HYPOTENSIO Diagnosis Active 2015-03-31 Memoria N, CHEST 03-21 11:41:00 l PAIN 00:00: Maciej HYPOTENSIO 00 N, CHEST PAIN Active 03/21/2015 [facility] LOWER BACK Diagnosis Active 2015-03-11 Memoria PAIN 03-11 15:56:00 l LOWER 00:00: Maciej BACK PAIN 00 Active 03/11/2015 [facility] UPPER BACK Diagnosis Active 2015-02-24 Memoria PAIN 02-24 15:44:00 l UPPER 00:00: [place] BACK PAIN 00 Active 02/24/2015 [facility] ACUTE Diagnosis Active 2015-02-26 Mem oria CHEST PAIN 02-24 09:02:00 l ACUTE 00:00: Maciej CHEST PAIN 00 Active 02/24/2015 [facility] UNSTABLE Diagnosis Active 2015-02-19 M emoria ANGINA; 02-16 13:44:00 l HYPOTENSIO UNSTABLE 00:00: He rmann N ANGINA; 00 HYPOTENSIO N Active 02/16/2015 [facility] CHEST/LEG Diagnosis Active 2013-12-22 Memoria PAIN 12-22 18:23:00 l 00:00: [place] CHEST/LEG 00 PAIN Active 12/22/2013 [facility] OTHER Diagnosis Active 2013-12-16 Mem oria 4-20 20:50:00 l OTHER 00:00: Maciej 00 Active 12/16/2013 [facility] ACS Diagnosis Active 2013-12-18 Mem oria 4- 15:44:00 l ACS 00:00: [place] 00 Active 12/16/2013 [facility] Stented Problem Resolve 2017-01-22 Mem oria coronary d 04:26:21 l artery Stented [place] (finding) coronary artery (finding) Resolved Problem 01/22/2017 [facility], [facility]acek [facility] Asthma Problem Active 2017-01-22 Memor ia (disorder) 04:26:21 l Asthma [place] (disorder) Active Problem 01/22/2017 [facility], [facility] Cardiac Problem Active 2017-01-22 Eleazar hilton chest pain 04:26:21 l (finding) Cardiac Herm sho chest pain (finding) Active Problem 01/22/2017 [facility], [facility] Hypertensi Problem Active 2017-01-22 M emoria ve 04:26:21 l disorder, [place] systemic Hypertensi arterial ve (disorder) disorder, systemic arterial (disorder) Active Problem 01/22/2017 [facility], [facility] Hyperlipid Problem Active 2017-01-22 M emoria emia 04:26:21 l (disorder) Kristopher n Hyperlipid emia (disorder) Active Problem 01/22/2017 [facility], [facility] Myocardial Problem Active 2017-01-22 M emoria infarction 04:26:21 l (disorder) Kristopher n Myocardial infarction (disorder) Active Problem 01/22/2017 [facility], [facility] Smoking Problem Active 2017-01-22 Eleazar hilton cessation 04:26:21 l advice Smoking [place] (regime/th cessation erapy) advice (regime/th erapy) Active Problem 01/22/2017 [facility], [facility] Substance Problem Active 2017-01-22 Me moria abuse 04:26:21 l (disorder) Kristopher n Substance abuse (disorder) Active Problem 01/22/2017 [facility] Tissue Problem Active 2017-01-22 Memor ia perfusion 04:26:21 l measure Tissue Maciej (observabl perfusion e entity) measure (observabl e entity) Active Problem 01/22/2017 [facility], [facility] Heart Problem Active 2013-12-28 Memor ia disease 01:02:24 l (disorder) Heart Caroline nn disease (disorder) Active Problem 12/28/2013 [facility] INTERMED Diagnosis Active 2013-12-18 M emoria CORONARY 15:44:00 l SYND INTERMED Kristopher n CORONARY SYND Active [facility] ANGINA Diagnosis Active 2015-02-19 Mem oria DECUBITUS 13:44:00 l ANGINA [place] DECUBITUS Active [facility] HYPOTENSIO Diagnosis Active 2015-03-31 Memoria N NOS 11:41:00 l Maciej HYPOTENSIO N NOS Active [facility] SYNCOPE Diagnosis Active 2017-02-18 Me moria AND 10:16:00 l COLLAPSE SYNCOPE Caroline nn AND COLLAPSE Active [facility] History of Past Illness Condition Condition Condition Status Onset Resolution Last Treating Co mments Source Name Details Category Date Date Treatment Clinician Date Chest Problem 2017-01-19 2017-01-19 M emoria pain, 01-16 00:39:08 00:39:08 l unspecifie Chest 05:00: Caroline nn d pain, 00 unspecifie d 01/16/2017 01/19/2017 [facility] Urinary Problem 2016-12-01 2016-12-01 Memoria tract 4- 00:38:41 00:38:41 l infection, Urinary 05:00: Her farooq site not tract 00 specified infection, site not specified 11/28/2016 12/01/2016 [facility] Dorsalgia, Problem 2016-12-01 2016-12-01 Memoria unspecifie 4- 00:38:41 00:38:41 l d 05:00: [place] Dorsalgia, 00 unspecifie d 11/28/2016 12/01/2016 [facility] [...] Diagnosis: 04-14 03:14:09 03:14:09 l Syncope, 05:00: [place] near Discharge 00 Diagnosis: Syncope, near 04/14/2016 04/17/2016 [facility] Discharge Problem 2016-03-08 2016-03-08 Memoria Diagnosis: 03-05 04:59:23 04:59:23 l Trichomona 05:00: Kristopher n s Discharge 00 vaginitis Diagnosis: Trichomona s vaginitis 03/05/2016 03/08/2016 [facility] Discharge Problem 2015-2016-03-08 2016-03-08 Memoria Diagnosis: 03-05 04:59:23 04:59:23 l Lumbago 05:00: Maciej Discharge 00 Diagnosis: Lumbago 03/05/2016 03/08/2016 [facility] Discharge Problem 2015-2016-03-03 2016-03-03 Memoria Diagnosis: 02-28 00:43:25 00:43:25 l Bronchitis 05:00: Kristopher n Discharge 00 Diagnosis: Bronchitis 02/29/2016 03/03/2016 [facility] Discharge Problem 2015-05-21 2015-05-21 Memoria Diagnosis: 05-18 01:04:08 01:04:08 l Abdominal 05:00: Maciej pain, Discharge 00 acute, Diagnosis: epigastric Abdominal pain, acute, epigastric 05/18/2015 05/21/2015 [facility] Discharge Problem 2015-05-12 2015-05-12 Memoria Diagnosis: 05-09 07:40:44 07:40:44 l Chest pain 05:00: Kristopher n Discharge 00 Diagnosis: Chest pain 05/09/2015 05/12/2015 [facility] Discharge Problem 2015-05-05 2015-05-05 Memoria Diagnosis: 05-02 10:45:36 10:45:36 l Vertigo 05:00: [place] Discharge 00 Diagnosis: Vertigo 05/02/2015 05/05/2015 [facility] Discharge Problem 2015-05-05 2015-05-05 Memoria Diagnosis: 05-02 10:45:36 10:45:36 l Syncope 05:00: [place] and Discharge 00 collapse Diagnosis: Syncope and collapse 5 05/05/2015 [facility] Discharge Problem 2015-04-14 2015-04-14 Memoria Diagnosis: 04-11 05:25:30 05:25:30 l Knee pain, 05:00: Kristopher n right Discharge 00 Diagnosis: Knee pain, right 04/11/2015 04/14/2015 [facility] Discharge Problem 2015-04-14 2015-04-14 Memoria Diagnosis: 04-11 05:25:30 05:25:30 l Lumbar 05:00: [place] spondylosi Discharge 00 s Diagnosis: Lumbar spondylosi s 04/11/2015 04/14/2015 [facility] Discharge Problem 2015-04-14 2015-04-14 Memoria Diagnosis: 04-11 05:25:30 05:25:30 l Anterolist 05:00: Kristopher n hesis Discharge 00 Diagnosis: Anterolist hesis 04/11/2015 04/14/2015 [facility] Discharge Problem 2015-04-14 2015-04-14 Memoria Diagnosis: 04-11 05:25:30 05:25:30 l Accidental 05:00: Kristopher n fall Discharge 00 Diagnosis: Accidental fall 04/11/2015 04/14/2015 [facility] Discharge Problem 2015-04-02 2015-04-02 Memoria Diagnosis: 03-30 00:46:48 00:46:48 l Chronic 05:00: [place] pain in Discharge 00 right Diagnosis: shoulder Chronic pain in right shoulder 5 04/02/2015 [facility] Discharge Problem 2015-03-14 2015-03-14 Memoria Diagnosis: 03-11 09:47:20 09:47:20 l Chest wall 05:00: Kristopher n muscle Discharge 00 strain Diagnosis: Chest wall muscle strain 03/11/2015 03/14/2015 [facility] Discharge Problem 2015-03-08 2015-03-08 Memoria Diagnosis: 03-05 04:07:57 04:07:57 l Dyspnea 05:00: Maciej Discharge 00 Diagnosis: Dyspnea 03/05/2015 03/08/2015 [facility] Allergies, Adverse Reactions, Alerts Allergy Allergy Status Severity Reaction(s) Onset Inactive Treating Comm ents Source Name Type Date Date Clinician Penicill Propensi Active Justin ins ty to 07 Health adverse 00:00: reaction 00 s to drug penicill penicill Active Pari a ins ins l [place] Social History Social Habit Start Date Stop Date Quantity Comments Source Sex Assigned At [facility] Social History 2016-10-10 2016-10-10 Cinthia murray 18:40:19 [...] Cam ris (NAPROSYN) 7-11 bilateral tablet by [facility] 375 mg 00:00: low back mouth 2 tablet 00 pain, with times sciatica daily as presence needed (as unspecified needed for pain). Sodium No 1,000 mL, Memori a Chloride 5-24 2,000 l 0.154 18:00: ml/hr, [place] MEQ/ML 00 Infuse Injectable Over: 30 Solution [...] PO, l Oral 03:41: BID, X 7 [place] Capsule 00 day, # 14 [Macrobid] cap, 0 Refill(s) Tramadol No Notes: Not Mem oria - to exceed l 03:02: 400mg/day. Maciej 00 (Same As: Ultram) Albuterol No Notes: Memori a 0.833 MG/ML -03 (Same as: l / 00:23: Duoneb) [place] Ipratropium 00 Hercules 0.167 MG/ML Inhalant Solution [DuoNeb] Saline No [...] 0.9% 3-12 (Same as: l 00:51: BD [place] 00 Posiflush) atorvastati No Notes: Eleazar hilton n 2-14 Same as l 03:00: Lipitor [place] 00 remove No Notes: Memoria patch 2-14 Remove l 03:00: patch 12 Maciej 00 hours after applicatio n each day. metoprolol No Notes: Memor ia tartrate 2-13 (Same as: l 15:00: Lopressor) [place] 00 12.5 mg=1/2 X 50 mg TAB heparin No Notes: Memoria sodium, 2-13 porcine l porcine 15:00: heparin [place] 2500 UNT/ML 00 Injectable Solution Protonix No Notes: Memoria 2-13 Tablet l 15:00: should not [place] 00 be chewed or crushed. (Same as: [...] Weight 50, kg, Start date: 10/11/16 9:00:00 MARKER DELIVERY, Duration: 30 day, Stop date: 11/09/16 17:00:00 [...] 2-13 not exceed l 02:07: 4 gm/day. [place] 00 (Same as: Tylenol) Docusate No Notes: Memoria 2-13 (Same as: l 02:07: Colace) (Do Not Crush) Morphine No Notes: Memoria 2-13 (Same l 02:07: as:MORPhin e Sulfate) Acetaminoph No Notes: Eleazar hilton en 325 MG / 2-13 (Same as: l Hydrocodone 02:07: [place] Caroline nn Bitartrate 00 325/5) Do 5 [...] Weight 50, kg, Start date: 09/15/16 9:00:00 MARKER DELIVERY, Duration: 30 day, Stop date: 10/14/16 9:00:00 MARKER DELIVERY tramadol Yes 50 mg = 1 Eleazar hilton hydrochlori 8-17 tab, PO, l de 50 MG 06:12: BID, X 15 Herm sho Oral Tablet 00 day, # 30 tab, 0 Refill(s) Acetaminoph No Notes: Eleazar hilton en 325 MG / 8-17 (Same as: l Hydrocodone 05:13: [place] Caroline nn Bitartrate 00 325/5) Do 5 MG Oral not exceed Tablet 4gm/day of [[place] acetaminop 5/325] hen. atorvastati No Notes: Eleazar hilton n 7-16 (Same as: l 02:00: Lipitor) [place] 00 200 ACTUAT No Notes: Memor ia [...] Chloride 03-11 1,000 l 0.154 20:56: ml/hr, Maciej MEQ/ML 00 Infuse Injectable Over: 1 Solution Hour, Route: IV, ONCE, Priority: STAT, Dosing Weight 50 kg, Start date: 03/11/16 15:56:00 CDT, Duration: 1 doses or times, Stop date: 03/11/16 15:56:00 CDT Saline No Notes: Memoria Flush 0.9% 03-11 (Same as: l 20:05: BD Maciej 00 Posiflush) Nitroglycer No Notes: Eleazar hilton in 03-11 (Same l 20:05: as:Nitroqu [place] ick, Nitrostat) "Do Not Crush" Sublingual tablet [...] tab, PO, l Tablet 02:07: BID, PRN [place] [Naprosyn] 00 Pain Score 6-10, # 60 tab, 0 Refill(s) Zofran No Notes: Memoria 03-06 (Same as: l 00:55: Zofran Maciej 00 ODT) Acetaminoph No Notes: Eleazar hilton en 325 MG / 03-06 (Same as: l Hydrocodone 00:55: [place] Caroline nn Bitartrate 00 325/5) Do 5 MG Oral not exceed Tablet 4gm/day of [[place] acetaminop 5/325] hen. Flagyl No Notes: Memoria [...] l / 22:53: Duoneb) Maciej Ipratropium 00 Hercules 0.167 MG/ML Inhalant Solution [DuoNeb] Symbicort Yes [...] as: l Tartrate 25 15:00: Toprol XL) [place] MG Extended 00 Do Not Release Crush Tablet [Toprol] clopidogrel No Notes: Eleazar hilton 09-04 (Same As: l 15:00: Plavix) [place] 00 Protonix No Notes: Memoria 09-04 Tablet l 15:00: should not Macije 00 be chewed or crushed. (Same as: [...] as: l / 14:00: Duoneb) Ipratropium 00 Hercules 0.167 MG/ML Inhalant Solution methylPREDN No Notes: Eleazar hilton ISolone 09-04 (Same l SODium 14:00: as:Solu-ME Caroline nn SUCCinate 00 DROL, A-Methapre d) methylPREDN No Notes: Eleazar hilton ISolone 09-04 (Same l SODium 04:05: as:Solu-ME Caroline nn SUCCinate 00 DROL, A-Methapre d) Albuterol No Notes: Memori a 0.833 MG/ML 09-04 (Same as: l / 04:05: Duoneb) [place] Ipratropium 00 Hercules 0.167 MG/ML Inhalant Solution Saline No Notes: Memoria Flush 0.9% 09-04 (Same as: l 04:05: BD [place] 00 Posiflush) atorvastati 2014-08 No Notes: Eleazar hilton n -19 (Same as: l 03:00: Lipitor) metoprolol 2014-08 Yes 12.5 mg = Me moria tartrate 25 1-18 0.5 tab, l mg oral 17:40: PO, BID, # Herm sho tablet 00 60 tab, 0 Refill(s) clopidogrel 2014-08 Yes 75 mg = 1 M emoria 75 mg oral 1-18 tab, PO, l tablet 17:40: Daily, # Macije 00 30 tab, 1 Refill(s) atorvastati 2014-08 Yes 80 mg = 2 M emoria n 40 mg 1-18 tab, PO, l oral tablet 17:40: Bedtime, # Maciej 00 60 tab, 1 Refill(s) 200 ACTUAT 2014-08 Yes 90 Memoria Albuterol 1-18 microgram l 0.09 17:40: = 1 puff, [place] MG/ACTUAT 00 INHALATION Metered , Q4H, PRN [...] Memoria 1-18 Tablet l 13:30: should not [place] 00 be chewed or crushed. (Same as: Protonix) Albuterol 2014-08 No Notes: Memori a 0.833 MG/ML 1-18 (Same as: l / 03:38: Duoneb) Maciej Ipratropium 00 Hercules 0.167 MG/ML Inhalant Solution Sodium 2014-08 No 250 mL, Memoria Chloride 09-15 Route: l 0.9% IV 03:26: IVPB, Maciej 00 Start date: 07/15/15 21:26:00, Duration: 30 day, Stop date: 08/14/15 21:25:00, PRN Line Flush BD Normal 2014-08 No Notes: Memori a Saline 09-15 (Same as: l Flush 03:26: BD [place] Posiflush) Nitroglycer 2014-08 No Notes: Eleazar hilton in 09-15 (Same l 03:23: as:Nitroqu [place] 00 ick, Nitrostat) "Do Not Crush" Sublingual tablet Ibuprofen 2014-08 No Notes: Memori a 09-15 (Same as: l 03:20: Motrin) [place] 00 "Do Not Crush" Give with food. Baclofen 2014-08 No Notes: Memoria 09-15 (Same As: l 03:20: Lioresal) Maciej 00 200 ACTUAT 2014-08 No Notes: Memor ia Albuterol 09-15 Albuterol l 0.09 03:20: 90 [place] MG/ACTUAT 00 microgram/ Metered inh 8gm Dose HFA Same Inhaler as: Ventolin, Proventil Sodium 2014-08 No 1,000 mL, Memori a Chloride 09-15 Rate: 125 l 0.0769 02:39: ml/hr, [place] MEQ/ML 00 Infuse Injectable over: 8 Solution hr, Route: IV, Dosing Weight 50 kg, Total Volume: 1,000, Start date: 07/15/15 20:39:00, Duration: 30 day, Stop date: 08/14/15 20:38:00 Saline 2014-08 No Notes: Memoria Flush 0.9% 09-15 (Same as: l 02:39: BD [place] Posiflush) Aspirin 2014-08 No 324 mg, Memoria 09-14 Route: PO, l 20:15: ONCE, [place] 00 Dosing Weight 50, kg, Priority: STAT, [...] / 04-11 Same as l Hydrocodone 17:21: [place] Caroline nn Bitartrate 00 325-7.5mg 7.5 MG Oral Do not Tablet exceed [[place] 4gm/day of 7.5/325] acetaminop hen. ibuprofen Yes [...] Memoria - (Same as: l 23:10: Motrin) [place] 00 "Do Not Crush" Take with food. [...] Do Not Crush clopidogrel No Notes: Eleazar hliton 7-25 (Same As: l 16:00: Plavix) [place] metoprolol Yes 12.5 mg = Me moria [...] INHALATION l 0.09 02:19: , Q4H, PRN [place] MG/ACTUAT 00 for Metered wheezing, Dose # 9 gm, 0 Inhaler Refill(s) Ondansetron No Notes: Eleazar hilton 7-25 (Same as: l 02:12: Zofran) Maciej MEDICATION WASTE Product Size: 4 mg Product Wasted: ___ mg Docusate No Notes: Memoria 7-25 (Same as: l 02:12: Colace) [place] (Do Not Crush) Acetaminoph No Notes: Do M emoria en 7-25 not exceed l 02:12: 4 gm/day. [place] (Same as: Tylenol) Budesonide No Notes: Memor ia 0.25 MG/ML 7-25 (Same As: l Inhalant 01:00: Pulmicort) Her farooq Solution 00 [Pulmicort] Albuterol No Notes: Memori a 0.833 MG/ML 03-22 (Same as: l / 01:00: Duoneb) Maciej Ipratropium 00 Hercules 0.167 MG/ML Inhalant Solution [DuoNeb] Potassium No Notes: Memori a Chloride 24 (Same as: l 1.33 MEQ/ML 23:15: Potassium H ermann Oral 00 Chloride) Solution Sodium No 1,000 mL, Memori a Chloride 24 1,000 l 0.154 22:23: ml/hr, [place] MEQ/ML 00 Infuse Injectable Over: 1 Solution [...] hilton -24 (Same as: l 20:43: Zofran) [place] MEDICATION WASTE Product Size: 4 mg Product [...] Memoria - Take with l 20:32: food. Maciej 00 Morphine No Notes: Memoria 03-11 (Same l 20:32: as:MORPhin e Sulfate) Ondansetron No Notes: Eleazar hilton 03-11 (Same as: l 20:32: Zofran) MEDICATION WASTE Product Size: 4 mg Product Wasted: ___ mg Saline No Notes: Memoria Flush 0.9% 03-11 (Same as: l 20:32: BD [place] 00 Posiflush) Famotidine No 20 mg, 1 [...] TOP, l 0.875 MG/HR 13:32: Daily, X [facility] Transdermal 56 14 day, # [...] PO, l oral tablet 13:32: [facility], # 30 tab, [...] tab, PO, l tablet 20:24: BID, PRN [place] 00 Pain, # 30 tab, 0 Refill(s) [...] PO, l oral tablet 20:24: Bedtime, # [place] 00 30 tab, 0 Refill(s) omeprazole Yes [...] not crush l Coated 14:00: or chew. [place] Tablet 00 (Same As: Ecotrin) Sodium No 1,000 mL, Memori a Chloride -22 Rate: 125 l 0.154 13:38: ml/hr, [place] MEQ/ML 00 Infuse Injectable over: 8 Solution hr, Route: IV, Dosing Weight 51.051 kg, Total Volume: 1,000, Start date: 02/17/15 8:38:00, Duration: 30 day, Stop date: 03/19/15 8:37:00 Aspirin 81 No 81 mg = 1 Me moria MG Enteric 6-22 tab, PO, l Coated 02:37: Daily, # [place] Tablet 00 90 tab, 3 Refill(s) clopidogrel Yes 75 mg = 1 M emoria 75 MG Oral 02-17 tab, PO, l Tablet 02:37: Daily, # [place] [Plavix] 00 30 tab, 0 Refill(s) Enoxaparin No Notes: Memor ia 02-17 Nurse to l 02:30: ensure [place] 00 documentat ion of patient education per [...] rphan 02-17 (dextromet l Hydrobromid 02:08: horphan-gu [place] e 2 MG/ML / 00 aifenesin Guaifenesin [...] 02-17 not exceed l 02:06: 4 gm/day. [place] 00 (Same as: Tylenol) Acetaminoph No Notes: Eleazar hilton en 325 MG / 02-17 (Same as: l Hydrocodone 02:06: [place] Caroline nn Bitartrate 00 325/5) Do 5 MG Oral not exceed Tablet 4gm/day of acetaminop hen. Morphine No Notes: Memoria 02-17 (Same l 02:06: as:MORPhin [place] 00 e Sulfate) Sodium No 1,000 mL, Memori a Chloride 02-17 Rate: 125 l 0.154 02:06: ml/hr, [place] MEQ/ML 00 Infuse Injectable over: 8 Solution [...] hilton in 02-17 (Same l 00:28: as:Nitroqu [place] 00 ick, Nitrostat) "Do Not Crush" Sublingual tablet Aspirin No Notes: (Do Eleazar hilton 02-16 Not Crush) l 22:49: Do not [place] crush or chew. Ondansetron No Notes: Eleazar hilton 12-22 (Same as: l 21:22: Zofran) Morphine No Notes: Memoria 12-22 (Same l 21:22: as:MORPhin Maciej e Sulfate) Aspirin / No Notes: Memori a Calcium 12-22 Take with l Carbonate 21:22: food. Aspirin 81 Yes 81 mg = 1 Me moria MG Enteric 4-21 tab, PO, l Coated 20:08: Daily, # [place] Tablet 00 90 tab, 0 Refill(s) metoprolol Yes 12.5 mg = Me moria tartrate 25 -21 0.5 tab, l mg oral 20:08: PO, BID, # Herm sho tablet 00 90 tab, 0 Refill(s) clopidogrel Yes 75 mg = 1 M emoria 75 mg oral 4-21 tab, PO, l tablet 20:08: Daily, # [place] 00 90 tab, 0 Refill(s) atorvastati Yes [...] 0.9% -21 (Same as: l 14:00: BD [place] 00 Posiflush) Adenosine No 41.6178 Memor ia [...] hilton in 12-17 (Same l 03:25: as:Nitroqu [place] 00 ick, Nitrostat) "Do Not Crush" Sublingual tablet atorvastati No 20 mg = 1 M emoria n 20 mg 21 tab, PO, l oral tablet 01:48: Bedtime, # Maciej 00 30 tab, 0 Refill(s) clopidogrel No 75 mg = 1 M emoria 75 mg oral 4-21 tab, PO, l tablet 01:48: Daily, 0 [place] 00 Refill(s) Metoprolol No 12.5 mg = Me moria Tartrate 25 4-21 0.5 tab, l mg oral 01:47: PO, BID, 0 Herm sho tablet 00 Refill(s) Aspirin Low No = 1 tab, Me moria Dose 81 mg -21 PO, Daily, l oral tablet 01:46: 0 Kristopher n 00 Refill(s) Sodium No 1,000 mL, Memori a Chloride 12-16 1,000 l 0.154 23:43: ml/hr, [place] MEQ/ML 00 Infuse Injectable Over: 1 Solution hr, Route: IV, 1,000, Drug form: INJ, ONCE, Priority: STAT, Dosing Weight 48.636 kg, Start date: 12/16/13 18:43:00, Duration: 1 doses or times, Stop date: 12/16/13 18:43:00 Iohexol No Special Memoria 4-20 Instructio l 21:17: ns: Dose = [place] 00 2.2ml/kg, Max dose = 100ml -- [...] Chloride 4-20 1,000 l 0.154 19:36: ml/hr, [place] MEQ/ML 00 Infuse Injectable Over: 1 Solution [...] n 3-14 tab, l 02:00: Route: PO, [place] 00 Drug form: TAB, Bedtime, Dosing Weight [...] tab, PO, l Tablet 20:52: Daily, # [place] 00 60 tab, 0 Refill(s) Plavix No [...] ia 3-13 tab, l 13:15: Route: PO, [place] 00 Drug form: TAB, Q4H, Dosing Weight 63.636, kg, PRN Pain, Start date: 11/08/13 8:15:00, Duration: 30 day, Stop date: 12/08/13 8:14:00Do not exceed 4 gm/day. (Same as: Tylenol) Saline No 5 ml, Memoria Flush 0.9% 11-08 Route: l 12:06: MISC, Drug [place] 00 Form: INJ, Dosing Weight 63.636, kg, [...] Systolic (mm Hg) 2017-01-19 23:16:00 [facility] [place] Diastolic (mm Hg) 2017-01-19 23:16:00 [facility] Respitory Rate 2017-01-19 23:16:00 [facility] [place] Systolic (mm Hg) 2017-01-19 22:28:00 [facility] Diastolic (mm Hg) 2017-01-19 22:28:00 [facility] [place] Respitory Rate 2017-01-19 22:28:00 [facility] Respitory Rate 2017-01-19 21:00:00 [facility] [place] Systolic (mm Hg) 2017-01-19 20:00:00 [facility] Diastolic (mm Hg) 2017-01-19 20:00:00 [facility] Weight 2017-01-19 17:23:00 [facility] BMI Calculated 2017-01-19 17:23:00 [facility] Height 2017-01-19 17:23:00 152.4 cm [facility] Temperature Oral (F) 2017-01-19 17:23:00 97.0 F [facility] Heart Rate 2017-01-19 17:23:00 [facility] Systolic (mm Hg) 2017-01-17 02:10:00 [facility] [place] Diastolic (mm Hg) 2017-01-17 02:10:00 [facility] Respitory Rate 2017-01-17 02:10:00 [facility] [place] Systolic (mm Hg) 2017-01-17 01:21:00 [facility] [place] Diastolic (mm Hg) 2017-01-17 01:21:00 [facility] Respitory Rate 2017-01-17 01:21:00 [facility] [place] Temperature Oral (F) 2017-01-17 01:21:00 98.1 F [facility] Systolic (mm Hg) 2017-01-17 00:28:00 [facility] Diastolic (mm Hg) 2017-01-17 00:28:00 [facility] Respitory Rate 2017-01-17 00:28:00 [facility] [place] Heart Rate 2017-01-16 23:24:00 [facility] Temperature Oral (F) 2017-01-16 23:24:00 98 F [facility] Weight 2017-01-16 23:24:00 [facility] Heart Rate 2016-11-29 03:44:00 [facility] Systolic (mm Hg) 2016-11-29 03:44:00 [facility] Diastolic (mm Hg) 2016-11-29 03:44:00 [facility] Respitory Rate 2016-11-29 03:44:00 [facility] Temperature Oral (F) 2016-11-29 03:44:00 98.7 F [facility] Heart Rate 2016-11-29 03:24:00 [facility] Respitory Rate 2016-11-29 03:24:00 [facility] Systolic (mm Hg) 2016-11-29 03:24:00 [facility] Diastolic (mm Hg) 2016-11-29 03:24:00 [facility] [place] Heart Rate 2016-11-29 02:51:00 [facility] Respitory Rate 2016-11-29 02:51:00 [facility] [place] Systolic (mm Hg) 2016-11-29 02:51:00 [facility] [place] Diastolic (mm Hg) 2016-11-29 02:51:00 [facility] [place] Weight 2016-11-29 00:21:00 [facility] BMI Calculated 2016-11-29 00:21:00 [facility] Height 2016-11-29 00:21:00 152.4 cm [facility] Temperature Oral (F) 2016-11-29 00:21:00 98.6 F [facility] Respitory Rate 2016-11-07 02:47:00 [facility] Heart Rate 2016-11-07 02:47:00 [facility] Temperature Oral (F) 2016-11-07 02:47:00 98.2 F [facility] Systolic (mm Hg) 2016-11-07 02:47:00 [facility] [place] Diastolic (mm Hg) 2016-11-07 02:47:00 [facility] [place] Heart Rate 2016-11-07 02:22:00 [facility] Respitory Rate 2016-11-07 02:22:00 [facility] [place] Systolic (mm Hg) 2016-11-07 02:22:00 [facility] Diastolic (mm Hg) 2016-11-07 02:22:00 [facility] [place] Weight 2016-11-06 23:37:00 [facility] Heart Rate 2016-11-06 23:37:00 [facility] Temperature Oral (F) 2016-11-06 23:37:00 98.3 F [facility] Respitory Rate 2016-11-06 23:37:00 [facility] [place] Systolic (mm Hg) 2016-11-06 23:37:00 [facility] [place] Diastolic (mm Hg) 2016-11-06 23:37:00 [facility] Respitory Rate 2016-10-11 18:24:00 [facility] [place] Temperature Oral (F) 2016-10-11 18:24:00 97.9 F [facility] Systolic (mm Hg) 2016-10-11 18:24:00 [facility] Diastolic (mm Hg) 2016-10-11 18:24:00 [facility] [place] Heart Rate 2016-10-11 18:24:00 [facility] Heart Rate 2016-10-11 13:53:00 [facility] Systolic (mm Hg) 2016-10-11 13:53:00 [facility] Diastolic (mm Hg) 2016-10-11 13:53:00 [facility] [place] Temperature Oral (F) 2016-10-11 13:53:00 98.1 F [facility] Temperature Oral (F) 2016-10-11 10:16:00 99.0 F [facility] Respitory Rate 2016-10-11 10:16:00 [facility] Heart Rate 2016-10-11 10:16:00 [facility] Systolic (mm Hg) 2016-10-11 10:16:00 [facility] Diastolic (mm Hg) 2016-10-11 10:16:00 [facility] [place] Weight 2016-10-11 06:46:00 [facility] BMI Calculated 2016-10-11 06:46:00 [facility] Height 2016-10-11 06:46:00 152.4 cm [facility] Respitory Rate 2016-10-11 06:39:00 [facility] [place] Height 2016-10-10 17:48:00 152.4 cm [facility] BMI Calculated 2016-10-10 17:48:00 [facility] Weight 2016-10-10 17:48:00 [facility] BMI Calculated 2016-09-15 04:26:00 [facility] Weight 2016-09-15 04:26:00 [facility] Height 2016-09-15 04:26:00 152.4 cm [facility] Systolic (mm Hg) 2016-09-15 04:26:00 [facility] Diastolic (mm Hg) 2016-09-15 04:26:00 [facility] Respitory Rate 2016-09-15 04:26:00 [facility] [place] Heart Rate 2016-09-15 04:26:00 [facility] Temperature Oral (F) 2016-09-15 04:26:00 98.5 F [facility] Respitory Rate 2016-04-14 06:22:00 [facility] [place] Temperature Oral (F) 2016-04-14 06:22:00 98.7 F [facility] Systolic (mm Hg) 2016-04-14 06:22:00 [facility] [place] Diastolic (mm Hg) 2016-04-14 06:22:00 [facility] Heart Rate 2016-04-14 06:22:00 [facility] BMI Calculated 2016-04-14 02:12:00 [facility] Weight 2016-04-14 02:12:00 [facility] Temperature Oral (F) 2016-04-14 02:12:00 99.2 F [facility] Height 2016-04-14 02:12:00 152.4 cm [facility] Respitory Rate 2016-04-14 02:12:00 [facility] [place] Systolic (mm Hg) 2016-04-14 02:12:00 [facility] [place] Diastolic (mm Hg) 2016-04-14 02:12:00 [facility] Heart Rate 2016-04-14 02:12:00 [facility] [place] Temperature Oral (F) 2016-03-12 17:00:00 97.8 F [facility] Heart Rate 2016-03-12 17:00:00 [facility] Respitory Rate 2016-03-12 17:00:00 [facility] [place] Systolic (mm Hg) 2016-03-12 17:00:00 [facility] [place] Diastolic (mm Hg) 2016-03-12 17:00:00 [facility] Respitory Rate 2016-03-12 12:54:00 [facility] Systolic (mm Hg) 2016-03-12 12:30:00 [facility] Diastolic (mm Hg) 2016-03-12 12:30:00 [facility] Respitory Rate 2016-03-12 12:30:00 [facility] Heart Rate 2016-03-12 12:30:00 [facility] Temperature Oral (F) 2016-03-12 12:30:00 98.2 F [facility] Temperature Oral (F) 2016-03-12 10:26:00 98.0 F [facility] Heart Rate 2016-03-12 10:26:00 [facility] Systolic (mm Hg) 2016-03-12 10:26:00 [facility] [place] Diastolic (mm Hg) 2016-03-12 10:26:00 [facility] Height 2016-03-11 19:45:00 152.4 cm [facility] BMI Calculated 2016-03-11 19:45:00 [facility] Weight 2016-03-11 19:45:00 [facility] Respitory Rate 2016-03-06 01:44:00 [facility] [place] Systolic (mm Hg) 2016-03-06 01:44:00 [facility] Diastolic (mm Hg) 2016-03-06 01:44:00 [facility] Heart Rate 2016-03-06 01:44:00 [facility] Temperature Oral (F) 2016-03-06 01:44:00 98.1 F [facility] BMI Calculated 2016-03-05 21:55:00 [facility] Weight 2016-03-05 21:55:00 [facility] Systolic (mm Hg) 2016-03-05 21:55:00 [facility] Diastolic (mm Hg) 2016-03-05 21:55:00 [facility] [place] Heart Rate 2016-03-05 21:55:00 [facility] Height 2016-03-05 21:55:00 152.4 cm [facility] Temperature Oral (F) 2016-03-05 21:55:00 98.3 F [facility] Respitory Rate 2016-03-05 21:55:00 [facility] [place] Respitory Rate 2016-03-01 01:23:00 [facility] [place] Systolic (mm Hg) 2016-03-01 01:23:00 [facility] [place] Diastolic (mm Hg) 2016-03-01 01:23:00 [facility] Temperature Oral (F) 2016-03-01 01:23:00 98.2 F [facility] Heart Rate 2016-03-01 01:23:00 [facility] Respitory Rate 2016-02-29 23:25:00 [facility] Temperature Oral (F) 2016-02-29 22:27:00 98.3 F [facility] Heart Rate 2016-02-29 22:27:00 [facility] Respitory Rate 2016-02-29 22:27:00 [facility] [place] Systolic (mm Hg) 2016-02-29 22:27:00 [facility] [place] Diastolic (mm Hg) 2016-02-29 22:27:00 [facility] Respitory Rate 2015-09-05 14:47:00 [facility] Systolic (mm Hg) 2015-09-05 14:47:00 [facility] Diastolic (mm Hg) 2015-09-05 14:47:00 [facility] [place] Heart Rate 2015-09-05 14:47:00 [facility] Weight 2015-09-05 11:00:00 [facility] Systolic (mm Hg) 2015-09-05 10:00:00 [facility] Diastolic (mm Hg) 2015-09-05 10:00:00 [facility] [place] Respitory Rate 2015-09-05 10:00:00 [facility] [place] Heart Rate 2015-09-05 10:00:00 [facility] Respitory Rate 2015-09-05 06:00:00 [facility] Systolic (mm Hg) 2015-09-05 06:00:00 [facility] Diastolic (mm Hg) 2015-09-05 06:00:00 [facility] [place] Heart Rate 2015-09-05 06:00:00 [facility] Weight 2015-09-04 11:00:00 [facility] Weight 2015-09-04 09:15:00 [facility] BMI Calculated 2015-09-04 09:15:00 [facility] Height 2015-09-04 09:15:00 160.02 cm [facility] Temperature Oral (F) 2015-09-04 09:06:00 98.3 F [facility] Height 2015-09-04 03:35:00 152.4 cm [facility] BMI Calculated 2015-09-04 03:35:00 [facility] Temperature Oral (F) 2015-09-04 03:35:00 98.7 F [facility] Systolic (mm Hg) 2015-07-16 13:56:00 [facility] [place] Diastolic (mm Hg) 2015-07-16 13:56:00 [facility] Respitory Rate 2015-07-16 13:56:00 [facility] [place] Heart Rate 2015-07-16 13:56:00 [facility] Temperature Oral (F) 2015-07-16 13:56:00 98.0 F [facility] [place] Systolic (mm Hg) 2015-07-16 13:55:00 [facility] Diastolic (mm Hg) 2015-07-16 13:55:00 [facility] [place] Respitory Rate 2015-07-16 13:55:00 [facility] [place] Heart Rate 2015-07-16 13:55:00 [facility] Temperature Oral (F) 2015-07-16 13:55:00 97.4 F [facility] Systolic (mm Hg) 2015-07-16 10:00:00 [facility] [place] Diastolic (mm Hg) 2015-07-16 10:00:00 [facility] Respitory Rate 2015-07-16 10:00:00 [facility] Heart Rate 2015-07-16 10:00:00 [facility] Temperature Oral (F) 2015-07-16 10:00:00 97.9 F [facility] Height 2015-07-16 01:30:00 152.4 cm [facility] Weight 2015-07-16 01:30:00 [facility] BMI Calculated 2015-07-16 01:30:00 [facility] [place] Height 2015-07-15 18:10:00 152.4 cm [facility] BMI Calculated 2015-07-15 18:10:00 [facility] Weight 2015-07-15 18:10:00 [facility] Weight 2015-07-05 04:10:00 [facility] Height 2015-07-05 04:10:00 152.4 cm [facility] BMI Calculated 2015-07-05 04:10:00 [facility] [place] Temperature Oral (F) 2015-07-05 04:10:00 98.3 F [facility] Respitory Rate 2015-07-05 04:10:00 [facility] Heart Rate 2015-07-05 04:10:00 [facility] [place] Systolic (mm Hg) 2015-07-05 04:10:00 [facility] Diastolic (mm Hg) 2015-07-05 04:10:00 [facility] [place] BMI Calculated 2015-07-04 18:05:00 [facility] Weight 2015-07-04 18:05:00 [facility] Height 2015-07-04 18:05:00 152.4 cm [facility] Temperature Oral (F) 2015-07-04 18:05:00 97.9 F [facility] Respitory Rate 2015-07-04 18:05:00 [facility] [place] Heart Rate 2015-07-04 18:05:00 [facility] Systolic (mm Hg) 2015-07-04 18:05:00 [facility] Diastolic (mm Hg) 2015-07-04 18:05:00 [facility] BMI Calculated 2015-06-04 04:13:00 [facility] [place] Weight 2015-06-04 04:13:00 [facility] Height 2015-06-04 04:13:00 152.4 cm [facility] Temperature Oral (F) 2015-06-04 04:13:00 98.8 F [facility] Respitory Rate 2015-06-04 04:13:00 [facility] [place] Heart Rate 2015-06-04 04:13:00 [facility] Systolic (mm Hg) 2015-06-04 04:13:00 [facility] Diastolic (mm Hg) 2015-06-04 04:13:00 [facility] Systolic (mm Hg) 2015-05-18 22:47:00 [facility] [place] Diastolic (mm Hg) 2015-05-18 22:47:00 [facility] [place] Temperature Oral (F) 2015-05-18 22:47:00 96.6 F [facility] Heart Rate 2015-05-18 22:47:00 [facility] Respitory Rate 2015-05-18 22:47:00 [facility] Systolic (mm Hg) 2015-05-18 22:30:00 [facility] Diastolic (mm Hg) 2015-05-18 22:30:00 [facility] Systolic (mm Hg) 2015-05-18 21:00:00 [facility] Diastolic (mm Hg) 2015-05-18 21:00:00 [facility] Temperature Oral (F) 2015-05-18 21:00:00 98.1 F [facility] [place] Respitory Rate 2015-05-18 21:00:00 [facility] Temperature Oral (F) 2015-05-18 19:21:00 98.2 F [facility] [place] Heart Rate 2015-05-18 19:21:00 [facility] Respitory Rate 2015-05-18 19:21:00 [facility] [place] Heart Rate 2015-05-18 17:10:00 [facility] Respitory Rate 2015-05-09 20:00:00 [facility] Systolic (mm Hg) 2015-05-09 20:00:00 [facility] [place] Diastolic (mm Hg) 2015-05-09 20:00:00 [facility] Temperature Oral (F) 2015-05-09 20:00:00 97.5 F [facility] Temperature Oral (F) 2015-05-09 19:10:00 97.5 F [facility] Systolic (mm Hg) 2015-05-09 19:10:00 [facility] [place] Diastolic (mm Hg) 2015-05-09 19:10:00 [facility] [place] Respitory Rate 2015-05-09 19:10:00 [facility] Systolic (mm Hg) 2015-05-09 18:41:00 [facility] Diastolic (mm Hg) 2015-05-09 18:41:00 [facility] Weight 2015-05-09 17:37:00 [facility] BMI Calculated 2015-05-09 17:37:00 [facility] [place] Height 2015-05-09 17:37:00 152.4 cm [facility] Temperature Oral (F) 2015-05-09 17:37:00 98.9 F [facility] Respitory Rate 2015-05-09 17:37:00 [facility] Heart Rate 2015-05-09 17:37:00 [facility] Systolic (mm Hg) 2015-05-03 00:04:00 [facility] [place] Diastolic (mm Hg) 2015-05-03 00:04:00 [facility] [place] Heart Rate 2015-05-03 00:04:00 [facility] Respitory Rate 2015-05-03 00:04:00 [facility] [place] Temperature Oral (F) 2015-05-03 00:04:00 98.5 F [facility] Heart Rate 2015-05-02 21:17:00 [facility] Respitory Rate 2015-05-02 21:17:00 [facility] [place] Systolic (mm Hg) 2015-05-02 21:17:00 [facility] Diastolic (mm Hg) 2015-05-02 21:17:00 [facility] [place] Heart Rate 2015-05-02 20:24:00 [facility] Temperature Oral (F) 2015-05-02 20:24:00 98.1 F [facility] Systolic (mm Hg) 2015-05-02 20:24:00 [facility] Diastolic (mm Hg) 2015-05-02 20:24:00 [facility] [place] Respitory Rate 2015-05-02 20:24:00 [facility] [place] Temperature Oral (F) 2015-05-02 18:35:00 98.9 F [facility] Systolic (mm Hg) 2015-04-11 19:45:00 [facility] [place] Diastolic (mm Hg) 2015-04-11 19:45:00 [facility] [place] Temperature Oral (F) 2015-04-11 19:45:00 98.7 F [facility] Respitory Rate 2015-04-11 19:45:00 [facility] Heart Rate 2015-04-11 19:45:00 [facility] Weight 2015-04-11 16:35:00 [facility] Temperature Oral (F) 2015-04-11 16:35:00 98.4 F [facility] Systolic (mm Hg) 2015-04-11 16:35:00 [facility] [place] Diastolic (mm Hg) 2015-04-11 16:35:00 [facility] [place] Respitory Rate 2015-04-11 16:35:00 [facility] Heart Rate 2015-04-11 16:35:00 [facility] Systolic (mm Hg) 2015-03-30 22:06:00 [facility] [place] Diastolic (mm Hg) 2015-03-30 22:06:00 [facility] Temperature Oral (F) 2015-03-30 22:06:00 97.9 F [facility] [place] Heart Rate 2015-03-30 22:06:00 [facility] Respitory Rate 2015-03-30 22:06:00 [facility] [place] BMI Calculated 2015-03-30 19:44:00 [facility] Height 2015-03-30 19:44:00 152.4 cm [facility] [place] Systolic (mm Hg) 2015-03-30 19:44:00 [facility] Diastolic (mm Hg) 2015-03-30 19:44:00 [facility] Respitory Rate 2015-03-30 19:44:00 [facility] [place] Heart Rate 2015-03-30 19:44:00 [facility] [place] Weight 2015-03-30 19:44:00 [facility] Temperature Oral (F) 2015-03-30 19:44:00 97.9 F [facility] [place] Respitory Rate 2015-03-24 21:57:00 [facility] Temperature Oral (F) 2015-03-24 21:57:00 97.9 F [facility] [place] Heart Rate 2015-03-24 21:57:00 [facility] Systolic (mm Hg) 2015-03-24 21:57:00 [facility] [place] Diastolic (mm Hg) 2015-03-24 21:57:00 [facility] [place] Heart Rate 2015-03-24 17:28:00 [facility] [place] Temperature Oral (F) 2015-03-24 17:28:00 98.8 F [facility] [place] Respitory Rate 2015-03-24 17:28:00 [facility] Systolic (mm Hg) 2015-03-24 17:28:00 [facility] [place] Diastolic (mm Hg) 2015-03-24 17:28:00 [facility] [place] Heart Rate 2015-03-24 13:08:00 [facility] Temperature Oral (F) 2015-03-24 13:08:00 98.4 F [facility] Respitory Rate 2015-03-24 13:08:00 [facility] [place] Systolic (mm Hg) 2015-03-24 13:08:00 [facility] Diastolic (mm Hg) 2015-03-24 13:08:00 [facility] BMI Calculated 2015-03-22 01:41:00 [facility] Weight 2015-03-22 01:41:00 [facility] Height 2015-03-22 01:41:00 152.4 cm [facility] BMI Calculated 2015-03-21 18:42:00 [facility] [place] Weight 2015-03-21 18:42:00 [facility] Height 2015-03-21 18:42:00 152.4 cm [facility] [place] Systolic (mm Hg) 2015-03-11 22:39:00 [facility] Diastolic (mm Hg) 2015-03-11 22:39:00 [facility] [place] Respitory Rate 2015-03-11 22:39:00 [facility] [place] Heart Rate 2015-03-11 22:39:00 [facility] Temperature Oral (F) 2015-03-11 22:39:00 98.1 F [facility] BMI Calculated 2015-03-11 19:44:00 [facility] [place] Weight 2015-03-11 19:44:00 [facility] [place] Systolic (mm Hg) 2015-03-11 19:44:00 [facility] [place] Diastolic (mm Hg) 2015-03-11 19:44:00 [facility] Temperature Oral (F) 2015-03-11 19:44:00 97.9 F [facility] [place] Heart Rate 2015-03-11 19:44:00 [facility] [place] Respitory Rate 2015-03-11 19:44:00 [facility] [place] Height 2015-03-11 19:44:00 152.4 cm [facility] Temperature Oral (F) 2015-03-05 10:15:00 97.9 F [facility] Systolic (mm Hg) 2015-03-05 10:15:00 [facility] Diastolic (mm Hg) 2015-03-05 10:15:00 [facility] Respitory Rate 2015-03-05 10:15:00 [facility] [place] Respitory Rate 2015-03-05 09:53:00 [facility] Temperature Oral (F) 2015-03-05 09:53:00 97.8 F [facility] [place] Systolic (mm Hg) 2015-03-05 09:53:00 [facility] [place] Diastolic (mm Hg) 2015-03-05 09:53:00 [facility] [place] Respitory Rate 2015-03-05 06:30:00 [facility] Systolic (mm Hg) 2015-03-05 06:30:00 [facility] [place] Diastolic (mm Hg) 2015-03-05 06:30:00 [facility] [place] Temperature Oral (F) 2015-03-05 06:20:00 97.7 F [facility] [place] Heart Rate 2015-03-05 06:20:00 [facility] Heart Rate 2015-03-05 05:46:00 [facility] Height 2015-03-05 05:46:00 152.4 cm [facility] BMI Calculated 2015-03-05 05:46:00 [facility] Weight 2015-03-05 05:46:00 [facility] [place] Systolic (mm Hg) 2015-02-25 20:55:00 [facility] [place] Diastolic (mm Hg) 2015-02-25 20:55:00 [facility] Temperature Oral (F) 2015-02-25 20:55:00 97.9 F [facility] Heart Rate 2015-02-25 20:55:00 [facility] Respitory Rate 2015-02-25 20:55:00 [facility] [place] Temperature Oral (F) 2015-02-25 17:18:00 98 F [facility] Heart Rate 2015-02-25 17:18:00 [facility] [place] Respitory Rate 2015-02-25 17:18:00 [facility] Systolic (mm Hg) 2015-02-25 17:18:00 [facility] Diastolic (mm Hg) 2015-02-25 17:18:00 [facility] Systolic (mm Hg) 2015-02-25 12:00:00 [facility] [place] Diastolic (mm Hg) 2015-02-25 12:00:00 [facility] Respitory Rate 2015-02-25 12:00:00 [facility] [place] Heart Rate 2015-02-25 12:00:00 [facility] Temperature Oral (F) 2015-02-25 12:00:00 97.8 F [facility] Height 2015-02-24 16:11:00 152.4 cm [facility] BMI Calculated 2015-02-24 16:11:00 [facility] Weight 2015-02-24 16:11:00 [facility] Heart Rate 2015-02-18 20:17:00 [facility] Temperature Oral (F) 2015-02-18 20:17:00 97.3 F [facility] Systolic (mm Hg) 2015-02-18 20:17:00 [facility] Diastolic (mm Hg) 2015-02-18 20:17:00 [facility] Respitory Rate 2015-02-18 20:17:00 [facility] [place] Heart Rate 2015-02-18 16:13:00 [facility] [place] Respitory Rate 2015-02-18 16:13:00 [facility] [place] Systolic (mm Hg) 2015-02-18 16:13:00 [facility] Diastolic (mm Hg) 2015-02-18 16:13:00 [facility] Temperature Oral (F) 2015-02-18 16:13:00 97.5 F [facility] Temperature Oral (F) 2015-02-18 12:19:00 97.9 F [facility] Systolic (mm Hg) 2015-02-18 12:19:00 [facility] [place] Diastolic (mm Hg) 2015-02-18 12:19:00 [facility] [place] Respitory Rate 2015-02-18 12:19:00 [facility] Heart Rate 2015-02-18 12:19:00 [facility] Weight 2015-02-17 02:30:00 [facility] Height 2015-02-17 02:30:00 152.4 cm [facility] BMI Calculated 2015-02-17 02:30:00 [facility] [place] Weight 2015-02-16 20:42:00 [facility] BMI Calculated 2015-02-16 20:42:00 [facility] Height 2015-02-16 20:42:00 152.4 cm [facility] Respitory Rate 2013-12-25 19:27:00 [facility] [place] Heart Rate 2013-12-25 19:27:00 [facility] [place] Diastolic (mm Hg) 2013-12-25 19:27:00 [facility] Systolic (mm Hg) 2013-12-25 19:27:00 [facility] Temperature Oral (F) 2013-12-25 19:27:00 98.3 F [facility] BMI Calculated 2013-12-25 16:48:00 [facility] Weight 2013-12-25 16:48:00 [facility] Height 2013-12-25 16:48:00 152.4 cm [facility] Respitory Rate 2013-12-25 16:48:00 [facility] Heart Rate 2013-12-25 16:48:00 [facility] Diastolic (mm Hg) 2013-12-25 16:48:00 [facility] [place] Systolic (mm Hg) 2013-12-25 16:48:00 [facility] [place] Temperature Oral (F) 2013-12-25 16:48:00 98.8 F [facility] Heart Rate 2013-12-23 00:27:00 [facility] Systolic (mm Hg) 2013-12-23 00:27:00 [facility] Respitory Rate 2013-12-23 00:27:00 [facility] [place] Temperature Oral (F) 2013-12-23 00:27:00 98.3 F [facility] Diastolic (mm Hg) 2013-12-23 00:27:00 [facility] [place] Diastolic (mm Hg) 2013-12-22 23:06:00 [facility] Temperature Oral (F) 2013-12-22 23:06:00 98.4 F [facility] Systolic (mm Hg) 2013-12-22 23:06:00 [facility] Respitory Rate 2013-12-22 23:06:00 [facility] Heart Rate 2013-12-22 23:06:00 [facility] Weight 2013-12-22 20:46:00 [facility] Temperature Oral (F) 2013-12-22 20:46:00 98.7 F [facility] Systolic (mm Hg) 2013-12-22 20:46:00 [facility] [place] Diastolic (mm Hg) 2013-12-22 20:46:00 [facility] [place] Respitory Rate 2013-12-22 20:46:00 [facility] [place] Heart Rate 2013-12-22 20:46:00 [facility] Diastolic (mm Hg) 2013-12-17 20:30:00 [facility] Respitory Rate 2013-12-17 20:30:00 [facility] Systolic (mm Hg) 2013-12-17 20:30:00 [facility] Systolic (mm Hg) 2013-12-17 19:06:00 [facility] Diastolic (mm Hg) 2013-12-17 19:06:00 [facility] [place] Respitory Rate 2013-12-17 19:06:00 [facility] Systolic (mm Hg) 2013-12-17 18:54:00 [facility] Diastolic (mm Hg) 2013-12-17 18:54:00 [facility] Temperature Oral (F) 2013-12-17 17:09:00 98.1 F [facility] Respitory Rate 2013-12-17 16:50:00 [facility] Temperature Oral (F) 2013-12-17 09:00:00 97.1 F [facility] Height 2013-12-17 02:58:00 152.4 cm [facility] Weight 2013-12-17 02:58:00 [facility] BMI Calculated 2013-12-17 02:58:00 [facility] Temperature Oral (F) 2013-12-17 02:55:00 98.1 F [facility] Height 2013-12-16 17:19:00 152.4 cm [facility] BMI Calculated 2013-12-16 17:19:00 [facility] Weight 2013-12-16 17:19:00 [facility] Heart Rate 2013-12-16 17:19:00 [facility] Temperature Oral (F) 2013-11-08 21:00:00 98 F [facility] Diastolic (mm Hg) 2013-11-08 21:00:00 [facility] Respitory Rate 2013-11-08 21:00:00 [facility] [place] Systolic (mm Hg) 2013-11-08 21:00:00 [facility] [place] Temperature Oral (F) 2013-11-08 19:13:00 97.6 F [facility] Diastolic (mm Hg) 2013-11-08 19:13:00 [facility] [place] Systolic (mm Hg) 2013-11-08 19:13:00 [facility] [place] Respitory Rate 2013-11-08 19:13:00 [facility] [place] Systolic (mm Hg) 2013-11-08 16:18:00 [facility] [place] Respitory Rate 2013-11-08 16:18:00 [facility] [place] Diastolic (mm Hg) 2013-11-08 16:18:00 [facility] Temperature Oral (F) 2013-11-08 11:34:00 99.0 F [facility] Heart Rate 2013-11-08 11:34:00 [facility] Heart Rate 2013-11-08 08:04:00 [facility] BMI Calculated 2013-11-08 04:51:00 [facility] Height 2013-11-08 04:51:00 152.4 cm [facility] [place] Weight 2013-11-08 04:51:00 [facility] [place] Heart Rate 2013-11-08 04:51:00 [facility] Procedures Procedure Date / Time Performing Clinician Source Performed Cardiac catheterization [facility] [place] procedure Stent placement<sup>1</sup> Eleazar [facility] [place] Plan of Care Planned Activity Planned Date Details Comments Source Future Scheduled Test 2021-05-29 IMM Influenza Seasonal [facility] 00:00:00 May to October (>/= 19 yrs) [code = IMM Influenza Seasonal May to October (>/= 19 yrs)] Future Scheduled Test 2015 IMM Pneumococcal Age 65 [facility] 00:00:00 and Up [code = IMM Pneumococcal Age 65 and Up] Future Scheduled Test 2000 Screening for malignant [facility] 00:00:00 neoplasm of colon (procedure) [code = 730463564] Future Scheduled Test 1990 Breast Cancer Scrn [facility] 00:00:00 (Yearly) [code = Breast Cancer Scrn (Yearly)] Future Scheduled Test 1966 COVID-19 Vaccine (1) [facility] 00:00:00 [code = COVID-19 Vaccine (1)] Encounters Start End Encounter Admission Attending Care Care Encounter Source Date/Time Date/Time Type Type Clinicians Facility Department ID 2020-10-15 2020-10-15 Emergency [facility] [id number] 02:02:00 04:45:00 Ciaran Freitas [id number] [place] [id number] [place] [id number] 2020-01-21 2020-01-21 Outpatient [id number] 05:31:00 05:31:00 2019-10-15 2019-10-15 Emergency E [facility] [id number] [facility] 13:12:00 13:12:00 2019-05-20 2019-05-20 Emergency E [id number] 15:19:00 15:19:00 2019-02-25 2019-02-25 Emergency E [facility] [id number] [facility] 10:56:00 10:56:00 2018-08-21 2018-08-21 Emergency [facility] [id number] 18:32:58 18:32:58 Health 2018-08-21 2018-08-21 Emergency [facility] [id number] [place] 17:47:59 17:47:59 Health 2018-08-21 2018-08-21 Emergency [facility] [id number] [place] 16:16:06 16:16:06 [facility] 2018-08-16 2018-08-16 Emergency [facility] [id number] [place] 22:04:00 22:04:00 [facility] 2018-08-16 2018-08-16 Emergency [facility] [id number] [place] 21:21:42 21:21:42 [facility] 2018-05-18 2018-05-18 Emergency [facility] [id number] [place] 14:51:52 14:51:52 [facility] 2018-03-08 2018-03-08 Emergency [facility] [id number] [place] 15:12:17 15:12:17 [facility] 2018-01-16 2018-01-16 Emergency [facility] [id number] [place] 17:53:03 17:53:03 [facility] 2018-01-16 2018-01-16 Emergency [facility] [id number] [place] 00:00:00 00:00:00 [facility] 2018-01-16 2018-01-16 Outpatient [facility] [id number] [place] 00:00:00 00:00:00 [facility] 2017-11-11 2017-11-11 Emergency E [facility] [id number] [facility] 16:37:00 16:37:00 [facility] 2017-01-19 2017-01-19 Outpatient Patel, [facility] [id number] 12:18:00 18:37:00 Mac Bond 2017-01-16 2017-01-16 Outpatient Chayito, [facility] [id number] 18:22:00 21:34:00 Jl 33 [place] 2016-11-28 2016-11-28 Outpatient Ace, [facility] [id number] 19:17:00 23:13:00 Jason 32 Melody 2016-11-06 2016-11-06 Outpatient Elijah [facility] [id number] 17:34:00 21:03:00 Zaki 31 [place] 2016-10-10 2016-10-11 Outpatient Cinthya, [facility] [id number] 11:45:00 13:54:00 Jessika Jacek 30 2016-09-14 2016-09-15 Outpatient Emmanuel, [facility] [id number] 21:19:00 00:56:00 Nando Lozada 29 2016-04-13 2016-04-14 Outpatient Frandy [facility] [id number] 21:11:00 01:37:00 Jose Tripathi 2016-03-11 2016-03-12 Outpatient Mihai, [facility] [id number] 14:41:00 15:25:00 Andrea Marino 2016-03-05 2016-03-05 Outpatient Rina, [facility] [id number] 16:54:00 21:21:00 Rachele 26 [place] 2016-02-29 2016-02-29 Outpatient Bayron, [facility] [id number] 17:25:00 20:29:00 Good 25 2015-09-03 2015-09-05 Outpatient Mateus Dixon [facility] [id number] 21:30:00 10:26:00 B 24 2015-07-15 2015-07-16 Outpatient Anjel, [facility] [id number] 12:00:00 15:30:00 Janet 23 2015-07-04 2015-07-05 Outpatient Dick, [facility] [id number] 22:07:00 01:09:00 Habacuc 22 Breen 2015-07-04 2015-07-04 Outpatient Recio, [facility] [id number] 11:57:00 14:54:00 Maribel Berkowitz 21 2015-06-03 2015-06-04 Outpatient Ware, [facility] [id number] 23:00:00 02:09:00 Luzmaria Pisano 2015-05-18 2015-05-18 Outpatient Jennifer, [facility] [id number] 11:55:00 18:04:00 Indira S 19 2015-05-09 2015-05-09 Outpatient Rileypaola, [facility] [id number] 12:15:00 15:10:00 Indira S 18 2015-05-02 2015-05-02 Outpatient Jennifer, [facility] [id number] 13:18:00 19:05:00 Indira S 17 2015-04-11 2015-04-11 Outpatient Yovani [facility] [id number] 11:25:00 14:47:00 Gilmar Goirdano 16 2015-03-30 2015-03-30 Outpatient Charito, [facility] [id number] 14:39:00 17:11:00 Isatu Ayala 2015-03-21 2015-03-24 Outpatient Richmond, [facility] [id number] 13:24:00 17:30:00 Catarino 14 Blaine 2015-03-11 2015-03-11 Outpatient Dick, [facility] [id number] 14:43:00 17:41:00 Habacuc 13 Breen 2015-03-05 2015-03-05 Outpatient Taat Rushing [facility] [id number] 00:43:00 05:21:00 Martell 12 2015-02-24 2015-02-25 Outpatient Dixon, [facility] [id number] 10:34:00 20:14:00 [place] 11 2015-02-16 2015-02-18 Outpatient Thu, [facility] [id number] 15:36:00 16:00:00 Kalneerua 10 Mary Katedonna 2013-12-25 2013-12-25 Outpatient Dorothea, [facility] [id number] 11:37:00 14:52:00 Rishabh E 09 2013-12-22 2013-12-22 Outpatient Nba, [facility] [id number] 15:43:00 19:29:00 Jann 08 Jl 2013-12-16 2013-12-17 Outpatient Beth, [facility] [id number] 12:18:00 17:45:00 Alvarez 07 2013-11-07 2013-11-08 Outpatient Sakatya, [facility] [id number] 23:50:00 18:00:00 Dustin Results Test Description [...] STOOL 2017-01-19 Negative [facility] 19:21:00 *NA*(01/19/17 2:21 [place] PM) URINE AND STOOL 2017-01-19 Negative (01/19/17 Me morial 19:21:00 2:21 PM) [place] URINE AND STOOL 2017-01-19 Negative (01/19/17 Me morial 19:21:00 2:21 PM) [place] URINE AND STOOL 2017-01-19 Negative (01/19/17 Me morial 19:21:00 2:21 PM) [place] URINE AND STOOL 2017-01-19 1 [facility] 19:21:00 [place] URINE AND STOOL 2017-01-19 1 [facility] 19:21:00 [place] URINE AND STOOL 2017-01-19 7.0 [facility] 19:21:00 [place] URINE AND STOOL 2017-01-19 1.008 [facility] 19:21:00 [place] URINE AND STOOL 2017-01-19 Clear (01/19/17 2:21 [facility] 19:21:00 PM) [place] CARDIAC ENZYMES 2017-01-19 3.0 [facility] 18:07:00 [place] CARDIAC ENZYMES 2017-01-19 <0.02 [facility] 18:07:00 [place] CHEM PANEL 2017-01-19 231 [facility] 18:07:00 [place] CHEM PANEL 2017-01-19 9 [facility] 18:07:00 [place] CHEM PANEL 2017-01-19 8.4 [facility] 18:07:00 [place] CHEM PANEL 2017-01-19 1.0 [facility] 18:07:00 [place] CHEM PANEL 2017-01-19 3.6 [facility] 18:07:00 [place] CHEM PANEL 2017-01-19 7 [facility] 18:07:00 [place] CHEM PANEL 2017-01-19 32 [facility] 18:07:00 [place] CHEM PANEL 2017-01-19 104 [facility] 18:07:00 [place] CHEM PANEL 2017-01-19 3.4 [facility] 18:07:00 [place] CHEM PANEL 2017-01-19 141 [facility] 18:07:00 [place] CHEM PANEL 2017-01-19 0.79 [facility] 18:07:00 [place] CHEM PANEL 2017-01-19 3.6 [facility] 18:07:00 [place] CHEM PANEL 2017-01-19 9.1 [facility] 18:07:00 [place] CHEM PANEL 2017-01-19 25 [facility] 18:07:00 [place] CHEM PANEL 2017-01-19 7.2 [facility] 18:07:00 [place] CHEM PANEL 2017-01-19 1.1 [facility] 18:07:00 [place] CHEM PANEL 2017-01-19 111 [facility] 18:07:00 [place] CHEM PANEL 2017-01-19 31 [facility] 18:07:00 [place] CHEM PANEL 2017-01-19 90 [facility] 18:07:00 [place] CHEM PANEL 2017-01-19 73 [facility] 18:07:00 [place] CHEM PANEL 2017-01-19 75 [facility] 18:07:00 [place] HEMATOLOGY 2017-01-19 18:07:00 Test Item Value Reference Range Interpretation Comme nts PTT (test code = PTT) 31.3 s 22.9-35.8 [facility] RsgrhvpVUOUFEBHAK9896-79-42 18:07:008.5[facility] 2017-01-19 18:07:0042.0[facility] QjccuvjQQDHCHPGAG7376-76-15 18:07:004.92[facility] BjyhvnbDLUENALFBE9531-17-01 18:07:0014.4[facility] HyonygsAFQMWTYXMI3305-91-62 18:07:0014.2[facility] JfnvwrjKKUKUIMNXY0044-26-25 18:07:78217Cnbmufjw [place] MSIBSVNGGB0176-07-37 18:07:0034.2[facility] XglswapYKYYPQTVHP9801-07-34 18:07:00 Test Item Value Reference Range Interpretation Comments MCH (test code = MCH) 29.2 pg 27.0-31.0 [facility] NllihfuTVMOVPBNED8916-79-23 18:07:0085.5[facility]ann[facility]OLOGY 2017-01-19 18:07:007.7[facility] ImuafreBUMNAYRNJY1234-58-77 18:07:00 Test Item Value Reference Range Interpretation Comments PT (test code = PT) 13.7 s 12.0-14.7 [facility] BtffppsYHCDAWUAVU3804-39-05 18:07:001.03[facility]annHEMATOLOGY 2017-01-19 18:07:000.3[facility] GyzldpwWPNHNWOIYV4161-14-42 18:07:0068.3[facility] NnrbrojKEPYGMGDRL9144-94-33 18:07:000.6[facility] KzztptcYUVGZVLSSN5315-47-96 18:07:005.3[facility] LcupcvgBNGNOROJKJ8772-66-22 18:07:004.5[facility] [place] ANAZQVYQVD8661-23-40 18:07:000.6[facility] OzzeiofLSIKAPAHZE0853-28-67 18:07:001.4 [facility] XctwoeaAGSXAUUMHX6582-01-37 18:07:007.8[facility]ann[facility]MATOLOGY 2017-01-19 18:07:0018.8[facility] EULVSH6973-53-09 00:23:00Positive *ABN*(01/16/17 7:23 PM)[facility] JDXDQT1654-09-89 00:23:00Negative *NA*(01/16/17 7:23 PM)[facility] NUTGMC1505-50-59 00:23:00Negative *NA*(01/16/17 7:23 PM)[facility] BYLWDA3365-87-81 00:23:00Negative *NA*(01/16/17 7:23 PM)[facility] ZFCXKW8471-55-34 00:23:00See Note (01/16/17 7:23 PM)[facility] DDSBJZ9963-24-29 00:23:00Negative *NA*(01/16/17 7:23 PM)[facility] JFTPXQ3920-11-07 00:23:00Negative *NA*(01/16/17 7:23 PM)[facility] STWDTS0229-45-44 00:23:00Negative *NA*(01/16/17 7:23 PM)[facility] HOWHF3181-34-10 00:23:00Negative *NA*(01/16/17 7:23 PM)[facility] CLPEV5886-35-17 00:23:00Negative *NA*(01/16/17 7:23 PM)[facility] KDARY9377-07-04 00:23:00Negative (01/16/17 7:23 PM)[facility] ZRBIZ2480-99-46 00:23:00Negative (01/16/17 7:23 PM)[facility] UEAQS6072-68-83 00:23:00Negative (01/16/17 7:23 PM)[facility] FQIOP7869-53-27 00:23:001.0[facility] QLZXR3784-09-51 00:23:00Negative (01/16/17 7:23 PM)[facility] FSTJP6348-59-92 00:23:00Slight Cloudy (01/16/17 7:23 PM)[facility] LKAJT5248-48-77 00:23:00 Test Item Value Reference Range Interpretation Comments UA Spec Grav (test code = UA Spec 1.007 1 Grav) [facility] JCTMY7202-85-86 00:23:00 Test Item Value Reference Range Interpretation Comments UA pH (test code = UA pH) 6.0 1 5.0-8.0 [facility] KQQTD5505-63-99 00:23:00Negative (01/16/17 7:23 PM) [facility] LKNXS4681-37-10 00:23:00Yellow *NA*(01/16/17 7:23 PM) [facility]ann[facility] QMGOPUE5355-96-37 23:57:00<0.02[facility] [place] CARDIAC KIDGTKX7878-16-76 23:57:002.0[facility]annC[facility]AC KFIEYGI2479-82-85 23:57:43080Wmofddgs HermannCARDIAC HVHXRZP6772-25-90 23:57:001.0[facility] [place] CHEM JAGJX0914-02-09 23:57:0073[facility] HermannCHEM IIVQU8393-86-79 23:57:0029 [facility]annCHEM KSUWN1412-95-35 23:57:95451Unwmwfyu HermannCHEM PANEL 2017-01-16 23:57:15034Eqjervlw HermannCHEM LYWOP8268-46-70 23:57:0015[facility]annCHEM ZSMLO3805-86-03 23:57:0011.0[facility]annCHEM MTPEL5374-21-63 23:57:0016[facility]annCHEM JQNBG9151-85-74 23:57:009.4[facility]annCHEM TLTSC1258-68-65 23:57:000.94[facility]annCHEM SGKVU6034-26-93 23:57:09856 [facility]annCHE[facility] LJUPE1449-34-99 23:57:004.0[facility]annCHEM PANEL 2017-01-16 23:57:003.6[facility]annCHEM CXBEH2885-46-81 23:57:0024[facility]annCHEM IBFRN8348-28-44 23:57:000.6[facility]annCHEM LGNDY9844-64-03 23:57:72885Nriuelwr HermannCHEM YQJEK7995-61-83 23:57:0029[facility]annCHEM IWIJS1960-87-57 23:57:000.9[facility]annCHE[facility] SPBRM3737-57-31 23:57:003.9 [facility]annCHE[facility] DROBV3838-40-88 23:57:007.5[facility]annHEMATOLOGY 2017-01-16 23:57:0014.6[facility] LziodxrGMTHRCFAZJ1111-56-91 23:57:0042.7[facility] ZgpnqyyAIOVZVIXRY1013-26-41 23:57:0034.2[facility] AosvfyoBSXYPWHEDS1399-88-87 23:57:0085.3[facility] QfjvmynBUHZXRWKDL9821-77-46 23:57:00 Test Item Value Reference Range Interpretation Comments MCH (test code = MCH) 29.2 pg 27.0-31.0 [facility] CdyguiwIESROVSLJQ9765-68-57 23:57:0014.3[facility] HermannHEMATOLOGY 2017-01-16 23:57:90812Yqijiagc ObqwubhSPHDCXNEAW7726-77-07 23:57:008.0[facility] LlncoghPEBCMQZCVP2037-04-63 23:57:006.6[facility] OlndbklEJCHTVLGST2984-05-14 23:57:005.00[facility] IsqonakBJPUXACSLQ1981-40-06 23:57:000.8[facility] [place] MZEIOJWJWV7347-33-32 23:57:004.0[facility] WctjynsZVINMSQIGW7018-01-86 23:57:000.5 [facility] OulvrkjZTDANBPQEG1607-42-62 23:57:000.1[facility]annHEMATOLOGY 2017-01-16 23:57:001.8[facility] HkymgrrXAGZLZTYKK6369-21-07 23:57:000.2[facility] UqehhivFGURWZAMIZ8027-70-41 23:57:0060.6[facility] XrnsbpqGPJUQZOZPH2252-80-85 23:57:008.3[facility] CuzgfqwQUJSFJKSXF3069-79-36 23:57:003.5[facility] [place] JPENTGPWUY5271-26-08 23:57:0026.8[facility] KIJAP4494-57-62 02:18:00Negative *NA*(11/28/16 9:18 PM)[facility] OIQIR9941-40-77 02:18:00Negative (11/28/16 9:18 PM)[facility] RSZSL4979-91-97 02:18:001.0[facility] NGIFO4862-96-61 02:18:00Negative (11/28/16 9:18 PM)[facility] XODOW5886-44-93 02:18:00Negative *NA*(11/28/16 9:18 PM)[facility] KWSME0047-72-70 02:18:00Moderate *ABN*(11/28/16 9:18 PM)[facility] GNRJA6796-91-59 02:18:00Yellow *NA*(11/28/16 9:18 PM)[facility] QWCNU0297-66-94 02:18:00 Test Item Value Reference Range Interpretation Comments UA pH (test code = UA pH) 6.0 1 5.0-8.0 [facility] HZGRQ3181-96-13 02:18:00Negative (11/28/16 9:18 PM) [facility] KLHQR0822-37-86 02:18:00Negative (11/28/16 9:18 PM) [facility] LKXEI0265-30-38 02:18:00<=1.005 *NA*(11/28/16 9:18 PM)[facility] POYDJ7105-14-69 02:18:00Clear (11/28/16 9:18 PM) [facility] XKVFDMF9834-13-31 01:37:00<0.02[facility] [place] CARDIAC ZFKRPIS2275-04-61 01:37:001.3[facility]annCARD[facility]AC NMSGZWF0942-50-62 01:37:0089[facility]annC[facility]AC BLSPZHS5124-10-54 01:37:001.5[facility] [place] CHEM WNFUY2924-82-88 01:37:003.9[facility] HermannCHEM EAJOJ9762-61-60 01:37:0050 [facility]annCHE[facility] ZBCVT2693-69-52 01:37:000.9[facility] HermannCHEM PANEL 2016-11-29 01:37:0024[facility]annCHEM AURFS1617-29-23 01:37:003.7[facility]annCHEM KXNPK0793-07-16 01:37:0089[facility]annCHEM VWHHT5435-83-95 01:37:19592Prcckqnh HermannCHEM AHDMY2312-19-68 01:37:0010[facility]annCHEM XWFDS0041-73-82 01:37:001.28[facility]annCHEM VUNDD1176-95-76 01:37:0030 [facility]annCHEM SGKST8537-48-78 01:37:00806Ywhsyyxq HermannCHEM PANEL 2016-11-29 01:37:009.5[facility] HermannCHEM KCEUW1725-90-90 01:37:009.5[facility] HermannCHEM PAHXO5391-91-44 01:37:008[facility] HermannCHEM DPPBG8260-47-46 01:37:000.7[facility] HermannCHEM UFUZK3076-31-43 01:37:58590Vydmrfob HermannCHEM DWSZO6103-43-79 01:37:003.5[facility] HermannCHEM NZHBA4615-89-50 01:37:007.6 [facility]annCHEM SNERE0047-52-79 01:37:0014[facility]annHEMATOLOGY 2016-11-29 01:10:0033.4[facility] JzwlvinHCPKXOVTBB4394-55-55 01:10:48238Vfotakpx IkhnucmPWKRUMWTCW6217-41-80 01:10:0014.7[facility] TvnbmhxPQMWTYWFOW3638-73-51 01:10:008.1[facility] UrerccvRQTNFRYBXB0340-98-46 01:10:005.34[facility] [place] PILVRSPOOL1218-43-16 01:10:0015.5[facility] DfprvfcLQKCPDORDE1903-09-28 01:10:00 87.0[facility] MpabiuzADOCYBBCUG0478-46-05 01:10:0046.4[facility]annHEMATOLOGY 2016-11-29 01:10:00 Test Item Value Reference Range Interpretation Comments MCH (test code = MCH) 29.1 pg 27.0-31.0 [facility] VfedamsTONZEPBKMH5969-14-33 01:10:008.0[facility]annHEMATOLOGY 2016-11-29 01:10:000.1[facility] RmdqubdJCEPIZJQDV2911-26-48 01:10:002.0[facility] MqpugnsOSELQGEAOK0403-54-88 01:10:005.1[facility] XzjrtrhYURYSAIJFY5708-68-25 01:10:000.2[facility] RsqcwkoIPFCUETTCP0330-77-36 01:10:000.8[facility] [place] XSXOYXNTOT6001-61-99 01:10:0063.2[facility] LvaceoxEELLNJXYJQ2341-26-77 01:10:00 24.3[facility] ShzkzdaYVLFVPCGYI8033-79-56 01:10:002.1[facility]annHEMATOLOGY 2016-11-29 01:10:009.6[facility] BolfginOHTVOPAVIR5795-98-51 01:10:000.8[facility] HermannVIRAL - QJCRGBZQ4483-25-16 01:10:00Negative (11/28/16 8:10 PM)[facility] HermannVIRAL - JZFZWRKI3076-91-12 01:10:00Negative (11/28/16 8:10 PM)[facility]annCARDIAC VGTJEYF2485-12-04 01:15:001.3[facility]annCARDIAC ENZYMES 2016-11-07 01:15:00<0.02[facility]annCARDIAC NYIDLQR5059-53-70 01:15:001.9 [facility]annCARD[facility]AC GVMVAWB0631-24-55 01:15:42965Qvazfdjf HermannCHEM PANEL 2016-11-07 01:15:0077[facility] HermannCHEM IASUS8678-10-44 01:15:0017[facility] HermannCHEM HATOQ5238-02-94 01:15:006.8[facility] HermannCHEM DISLL6752-17-94 01:15:008.5[facility] HermannCHEM OFHBM7859-41-99 01:15:000.8[facility] HermannCHEM MFJWG9502-66-64 01:15:64694Togmnhho HermannCHEM UYSQI4215-00-66 01:15:0031 [facility]annCHE[facility] MNVQQ5902-18-56 01:15:003.1[facility]annCHEM PANEL 2016-11-07 01:15:000.90[facility] HermannCHEM WXWOM7253-14-78 01:15:40046Odnfnujl HermannCHEM FOWNB1033-42-44 01:15:0012[facility] HermannCHEM NGHSK4594-24-88 01:15:0096[facility]annCHEM XJERG3764-49-68 01:15:003.3[facility]annCHEM DRRMV2160-41-04 01:15:0076[facility]annCHEM VLVUP7284-14-89 01:15:0020 [facility]annCHEM UXTAY5357-03-00 01:15:003.5[facility]annCHEM PANEL 2016-11-07 01:15:000.9[facility] HermannCHEM CLZNT9916-94-48 01:15:0010.1[facility] HermannCHEM NDHHR3793-21-15 01:15:0013[facility] DhpkfjyTPBAIUSVDO0578-89-52 01:15:002.8[facility] TwoautuIADLZEWFIT4198-18-99 01:15:000.2[facility] [place] XLQQJGWBAW9499-26-14 01:15:000.1[facility] CouluhrQEBZIQQAAN7538-24-60 01:15:000.7 [facility] HylzpkiYMGRVKRDBD5558-77-49 01:15:000.8[facility]annHEMATOLOGY 2016-11-07 01:15:004.5[facility] AjxkpcjGWQMGQMBJN6878-93-52 01:15:002.2[facility] IklosboKZXHCTIHJH0275-99-95 01:15:0058.5[facility] DkyvbikDZYMYIVANA2414-29-76 01:15:0028.8[facility] FxiattnKKXPWIXKND7010-07-63 01:15:009.1[facility] [place] PDWDIOZWFJ6161-72-64 01:15:11071Hxusfdni PjcltxkSNHIOSBMJK7073-97-68 01:15:00 14.3[facility] TjkftlaZEEJGFPJHM1677-34-63 01:15:008.1[facility]annHEMATOLOGY 2016-11-07 01:15:007.7[facility] HmbvayyIAORUPXBLR8409-53-40 01:15:0013.1[facility] YimdpbnWXKPRGMJSW9357-53-79 01:15:004.48[facility] RzhlxykDQIWYSRVTL6144-01-91 01:15:00 Test Item Value Reference Range Interpretation Comments MCH (test code = MCH) 29.3 pg 27.0-31.0 [facility] GflkpybQRQDANQHLM3054-67-75 01:15:0039.1[facility]annHEMATOLOGY 2016-11-07 01:15:0087.3[facility] MwaejzvTQKVWKJJMN2816-95-59 01:15:0033.6[facility] QKCJUA5626-65-77 11:24:00Negative *NA*(10/11/16 5:24 AM)[facility] RXXRZI9520-36-76 11:24:00Negative *NA*(10/11/16 5:24 AM)[facility] KMZEPY0849-01-31 11:24:00Negative *NA*(10/11/16 5:24 AM)[facility] NLCSMK7540-19-55 11:24:00Negative *NA*(10/11/16 5:24 AM)[facility] BKLZQC0868-03-55 11:24:00Positive *ABN*(10/11/16 5:24 AM)[facility] EFHXCO5344-70-74 11:24:00See Note (10/11/16 5:24 AM)[facility] [place] DRUG YADMUL1661-98-23 11:24:00Negative *NA*(10/11/16 5:24 AM)[facility] NNKMTZ6036-98-84 11:24:00Negative *NA*(10/11/16 5:24 AM)[facility]annCARD[facility]AC QIMYFEN9783-37-74 09:58:00<0.02[facility] QadxwhrHJYBGGZPKD5479-14-14 09:58:00 0.4[facility] MnlagxmPWRMEOBPKM7886-22-12 09:58:000.1[facility]annHEMATOLOGY 2016-10-11 09:58:006.3[facility] BgsvwgbBGGOGBWSYL3140-16-34 09:58:001.0[facility] UgaydllNJTJIZBIZI1012-14-97 09:58:002.7[facility] OifuppnWSFFPOIGYJ9905-30-92 09:58:002.1[facility] NkxzvqaWOEILJLKZM9341-87-28 09:58:000.6[facility] WSROSFCMFL5865-31-82 09:58:0036.3[facility] MxiiemwJPLATFIWGK2254-27-56 09:58:00 46.0[facility] VuqyoxiUBFRUFQQQG3277-99-04 09:58:0010.4[facility]annHEMATOLOGY 2016-10-11 09:58:008.7[facility] SdqakygSMHUQTDBMI5539-80-21 09:58:49561Nthtybwl UtymeqrBYIXCSRFUW1253-98-26 09:58:00 Test Item Value Reference Range Interpretation Comments MCH (test code = MCH) 29.3 pg 27.0-31.0 [facility] FjrgqomQVNJNHDKKL0482-29-59 09:58:0087.2[facility]annHEMATOLOGY 2016-10-11 09:58:0014.4[facility] PxtkmdeUNACQVKDFE7458-55-98 09:58:0033.6[facility] BnfjmmuCUHHZVFTBJ7669-55-07 09:58:0013.1[facility] IzyxzziZWFIDTVIRT1792-79-47 09:58:004.45[facility] BgqrwuwTGJPPFOJRX5610-83-42 09:58:0038.8[facility] NCCRWQSDUF4421-12-78 09:58:005.8[facility] OmbbvoxCPXDBX4571-64-34 09:58:002.84 [facility] TkvoyqlHEDMMG0199-37-69 09:58:0014[facility] ZgfttjhZSGTYK9059-31-53 09:58:0087[facility] OuuxjxxGBQOZH9447-42-61 09:58:0071[facility] HermannLIPIDS 2016-10-11 09:58:60147Tkshelbo CrznoriOJGVLD5307-40-65 09:58:0055[facility]annCARDIAC HFMEVKB5139-89-29 00:00:00<0.02[facility]annCARDIAC ENZYMES 2016-10-10 19:10:33<0.02[facility] HermannCHEM MGTFX2873-53-02 19:10:3392 [facility]annCHEM KJRZY9161-60-16 19:10:338[facility]annCHEM PANEL 2016-10-10 19:10:330.78[facility] HermannCHEM MBOBA1758-83-13 19:10:58430Gnznalez HermannCHEM XLKPJ3343-23-56 19:10:333.2[facility]annCHEM ACFRT9557-28-45 19:10:339.3[facility] HermannCHEM WWDIH6591-41-59 19:10:3331[facility] HermannCHEM SZWCB0408-26-80 19:10:59258Safgmehm HermannCHEM JWPBN4934-68-67 19:10:39409 [facility]annCHEM IECXQ0397-44-75 19:10:337.2[facility]annHEMATOLOGY 2016-10-10 19:10:3333.8[facility] WsqiibmTFSAPBNORY7588-99-31 19:10:3314.2[facility] EmdqjugPXRZTITLCJ3463-45-87 19:10:33 Test Item Value Reference Range Interpretation Comments MCH (test code = MCH) 29.4 pg 27.0-31.0 [facility] MbqyburVJGIXXZGUD2836-13-29 19:10:3387.0[facility]annHEMATOLOGY 2016-10-10 19:10:3313.5[facility] AqlpisfLDHJUCPZXR4404-59-15 19:10:3339.8[facility] NxpysuwJUGBMAOYUM8292-45-91 19:10:96515Naijtmkl EyzorqxELLBUJBNMQ8589-66-41 19:10:338.7[facility] SmkhwcuNUSFAFAXYL5047-10-01 19:10:336.6[facility] CHEUVRYMZI2270-97-45 19:10:334.58[facility] JeepkycDLQMCFVAMB2648-46-46 19:10:33 1.8[facility] UcjpbyrZBQQONEADR0492-29-64 19:10:330.6[facility]annHEMATOLOGY 2016-10-10 19:10:330.3[facility] KywqlqhGNKVAUYJAS3381-53-34 19:10:330.6[facility] IlldmgkAYGLIQWDUA8526-22-51 19:10:333.9[facility] PwkvhqqUGILXYDMAZ6688-13-43 19:10:339.0[facility] BtphunlEIOOFHHUUT5007-88-35 19:10:334.1[facility] XDPFLKYJOB6354-18-06 19:10:3359.5[facility] XvrgqerCVMAJGEZHY1747-19-10 19:10:33 26.8[facility] HermannCARDIAC UXQYORD8970-17-59 04:07:00<0.02[facility] DDIAJPXINGNC2087-32-28 04:07:0013.5[facility] WgybmldGHTWQUQWVVPO0393-00-66 04:07:0079[facility] UtpcjrfCKNJXWEIQNKV2487-65-16 04:07:000.89[facility] ZOMIGCKVNHIN4471-16-34 04:07:009[facility] DzcyyhnSYFGZQODXHIT0096-29-23 04:07:00 72[facility] DdnwzghOKCKDFOFVNDS0231-41-40 04:07:44406Wrznyjqr HermannELECTROLYTES 2016-04-14 04:07:0025[facility] CkjwpmiZLYZBPLYEFRS5816-46-63 04:07:008.9[facility] AjjghlyFATJQUHFJFGO9143-45-82 04:07:00107Qswrkswh GyspsqvZTUNNMEMSHZR4090-96-41 04:07:003.5[facility] HlyauscKWMSRHEEEU6260-22-65 04:07:29427Zmxexier Maciej RHSGPFAUET7597-08-49 04:07:008.5[facility] AkcntvpAJWBGKWELI7275-57-89 04:07:00 33.5[facility] YoqxhykVVQPVLMGOJ9895-61-27 04:07:00 Test Item Value Reference Range Interpretation Comments MCH (test code = MCH) 28.7 pg 27.0-31.0 [facility] IdmqlauKPCWGHTAQR7605-35-65 04:07:0015.0[facility]annHEMATOLOGY 2016-04-14 04:07:0038.3[facility] VqxsxtqMMLTFPKIWL9185-51-45 04:07:0085.6[facility] WpquqcbSVAEGKFIUX4100-27-29 04:07:0012.9[facility] XlujjrbXIYJNOKVPU8143-64-70 04:07:004.48[facility] HkxmejkFZRMJTQGZK6934-76-32 04:07:005.6[facility] HRWHKGLQEH8725-38-52 04:07:000.1[facility] GhsnhfuVKJYFVRYRO1069-30-46 04:07:002.2 [facility] JoenzduRBTRPFEVJJ6771-92-02 04:07:000.3[facility]annHEMATOLOGY 2016-04-14 04:07:000.5[facility] UwyuvmjQFWFHAPKFV0292-70-78 04:07:006.1[facility] DmfliwcTZFWJHLPYM6238-66-38 04:07:001.1[facility] HhlvrbxEBSWJFRMNG5164-20-68 04:07:002.5[facility] TdlokqvRHFZDGPCZN5253-13-09 04:07:0038.8[facility] BQTWHMTRIB0061-57-69 04:07:009.2[facility] TsbzftrHIONKNKYUJ7050-82-87 04:07:00 44.8[facility] QsfdtuiKULPXBDOVX9089-37-36 04:07:008[facility] HermannTOXICOLOGY 2016-04-14 04:07:000.008[facility] HermannCARDIAC ECDNGCE2706-45-03 11:47:00 <0.02[facility] OwyxcusHYCZAF8056-20-50 11:47:003.39[facility] HermannLIPIDS 2016-03-12 11:47:0018[facility] OnuypgtZWHZKM2256-35-06 11:47:0073[facility] UDAODX7389-39-25 11:47:0090[facility] PzgahjdMJXKWT7745-88-97 11:47:18843Gkiqmkqj VzgtkknYBGMBK8089-23-28 11:47:0038[facility]annSPECIAL KXPZVWIRM3406-85-28 11:47:005.9[facility]annCARDIAC JDAKVTZ4697-28-54 02:33:0081[facility] CARDIAC ROQFDBO8189-09-45 02:33:000.02[facility]AC AEBTLJY6762-27-59 02:33:001.6[facility]AC MZIIBVF4298-36-17 02:33:001.3[facility] MDNCJOBNXX8963-42-16 21:03:00 Test Item Value Reference Range Interpretation Comments PROTIME (test code = PROTIME) 14.0 s 12.0-14.7 [facility] QfiwxdcEBABNCRTSX7651-62-97 21:03:001.05[facility]annHEMATOLOGY 2016-03-11 21:03:00 Test Item Value Reference Range Interpretation Comments aPTT (test code = aPTT) 38.7 s 22.9-35.8 [facility] DwyrmeoUHGQIOIWWA1762-25-53 21:03:000.49[facility]annCARDIAC ENZYMES 2016-03-11 20:14:001.6[facility] FRMCKTT1231-73-65 20:14:001.3 [facility] KZIUJGP0302-90-11 20:14:00<0.02[facility] CARDIAC VDKZBEO2154-76-51 20:14:0083[facility]CARD[facility]AC NUCVMNF2678-57-16 20:14:0050[facility]annCHEM JJRLT1711-32-58 20:14:36575Ksysxxtq HermannCHEM LRUVE2688-79-32 20:14:79182Kxygocml HermannCHEM THJDO9403-57-86 20:14:002.8 [facility]annCHEM IDRYM8972-69-28 20:14:001.2[facility]annCHEM PANEL 2016-03-11 20:14:0015[facility]annCHEM UDFSA7261-68-18 20:14:0010.4[facility]annCHEM DDPUJ7482-26-54 20:14:0014[facility]annCHEM FOMOM5728-13-17 20:14:006.1[facility]annCHEM JEJZM3008-44-60 20:14:000.5[facility]annCHEM PCODK2967-65-25 20:14:007.7[facility]annCHEM XLDLI8578-79-72 20:14:0026 [facility]annCHEM GFGRC8030-39-82 20:14:79955Zdjszmta HermannCHEM PANEL 2016-03-11 20:14:003.4[facility]annCHEM AYPGV5419-63-53 20:14:16334Qteeakwz HermannCHEM EZOGJ5649-34-52 20:14:000.61[facility]annCHEM DUQEE5504-86-90 20:14:009[facility]annCHEM NNQEW4908-41-85 20:14:0076[facility]annCHEM THRMZ3852-53-58 20:14:0088[facility]annCHEM TDMCT9600-76-97 20:14:003.3 [facility]annCHEM OWNWI3952-37-48 20:14:0015[facility]annHEMATOLOGY 2016-03-11 20:14:001.8[facility] KwiyibbPOJUWZTASQ8094-51-22 20:14:000.5[facility] FzaygwbPRHEXFJGTV2052-01-14 20:14:001.0[facility] KwwmibjEHIWYTIJBR1569-19-69 20:14:004.1[facility] FghwikhHDPRNOEGOE2811-19-02 20:14:000.2[facility] QLDPRIHCRH8751-93-30 20:14:000.1[facility] TjgwssmAWIQVNKDSU1083-21-28 20:14:00 61.4[facility] NuspxnfEGOIGZHJVI2306-97-78 20:14:003.5[facility]annHEMATOLOGY 2016-03-11 20:14:0026.6[facility] ItpqdovZQMZAMWPMV6451-87-99 20:14:007.5[facility] XxidigrLFTWACZXHI7358-03-45 20:14:006.7[facility] VdmshdxFDGTURAWTC5681-82-97 20:14:0012.2[facility] MsuvjeaIXFBALTQHA8499-46-79 20:14:004.26[facility] XMFURPDKQT5417-20-23 20:14:00 Test Item Value Reference Range Interpretation Comments MCH (test code = MCH) 28.7 pg 27.0-31.0 [facility] XguowamIVSMCSJZJA0213-39-68 20:14:0086.0[facility]annHEMATOLOGY 2016-03-11 20:14:0014.9[facility] ZqrouthPFCJFLATXR7799-01-64 20:14:0033.3[facility] SmdpqzfPCXPXMRTFT5706-68-39 20:14:0036.6[facility] OzoopsrBNIAJYABUV7934-64-48 20:14:008.7[facility] LdzabsiVJXTZLEMWN9264-67-76 20:14:94178Ifivygwg HermannURINE AND WQSSJ1951-66-00 20:14:00Negative (03/11/16 3:14 PM)[facility] IGGQI7433-31-85 20:14:00Negative (03/11/16 3:14 PM)[facility] ZMIHG0809-54-01 20:14:00Negative (03/11/16 3:14 PM)[facility] PGBGA0817-30-56 20:14:000.2[facility] AND SSJSV7741-37-56 20:14:00 Clear (03/11/16 3:14 PM)[facility] WDNES9752-15-54 20:14:00 Negative (03/11/16 3:14 PM)[facility] JZMDO5405-17-97 20:14:00 <=1.005 *NA*(03/11/16 3:14 PM)[facility] OOMEF2721-05-23 20:14:00 Test Item Value Reference Range Interpretation Comments UA pH (test code = UA pH) 6.5 1 5.0-8.0 [facility] VHUTD3248-33-32 20:14:00Negative *NA*(03/11/16 3:14 PM) [facility] LJSND0693-43-05 20:14:00Negative *NA*(03/11/16 3:14 PM) [facility] HFGKU9576-11-86 20:14:00Negative (03/11/16 3:14 PM) [facility] JCMHX7806-71-12 20:14:00Yellow *NA*(03/11/16 3:14 PM) [facility] YNCCT5884-65-75 00:22:00Yellow *NA*(02/29/16 7:22 PM) [facility] VKGYW4297-90-82 00:22:00 Test Item Value Reference Range Interpretation Comments UA pH (test code = UA pH) 6.0 1 5.0-8.0 [facility] JOZVH4354-67-11 00:22:00Clear (02/29/16 7:22 PM)[facility] YYFUA7095-39-56 00:22:00 Test Item Value Reference Range Interpretation Comments UA Spec Grav (test code = UA Spec 1.015 1 Grav) [facility] OZLCL0295-60-72 00:22:00Trace *ABN*(02/29/16 7:22 PM) [facility] KTWMC7290-73-25 00:22:00None Seen (02/29/16 7:22 PM) [facility] PLPPS2896-94-94 00:22:00Negative (02/29/16 7:22 PM) [facility] EPNFC2334-83-05 00:22:001.0[facility] ZUUVC8428-35-81 00:22:00Negative (02/29/16 7:22 PM)[facility] STOOL 2016-03-01 00:22:00Negative (02/29/16 7:22 PM)[facility] STOOL 2016-03-01 00:22:00Negative *NA*(02/29/16 7:22 PM)[facility] STOOL 2016-03-01 00:22:00Negative *NA*(02/29/16 7:22 PM)[facility] STOOL 2016-03-01 00:22:00Negative (02/29/16 7:22 PM)[facility]annCARDIAC ENZYMES 2016-02-29 23:14:00<0.02[facility]annCARDIAC EBLJEGJ0181-58-41 23:14:001.1 [facility]annCARDIAC HPAJCXN6623-87-26 23:14:67782Ljnqshko HermannCARDIAC JTZVLCV2686-86-63 23:14:007[facility]annCARDIAC FITHKOH7048-32-98 23:14:000.8 [facility]annCHEM RRALG1747-05-56 23:14:0080[facility]annCHEM PANEL 2016-02-29 23:14:0013[facility] HermannCHEM HYVAA0070-73-84 23:14:001.0[facility]annCHEM KDWLS9738-91-47 23:14:003.6[facility]annCHEM FYWSD9239-16-91 23:14:009[facility]annCHEM OWLJF1091-12-96 23:14:007.1[facility] HermannCHEM NJNYG0936-01-28 23:14:0010.0[facility]annCHEM JELDT3439-95-01 23:14:46903 [facility]annCHEM JOPSM7069-91-22 23:14:003.0[facility]annCHEM PANEL 2016-02-29 23:14:000.88[facility] HermannCHEM GVZKI7345-29-22 23:14:0030[facility]annCHEM ZDFAL3577-98-49 23:14:000.6[facility]annCHEM EZXOA0420-81-55 23:14:008.7[facility]annCHEM YOKVN1604-75-83 23:14:50299Saborgbf HermannCHEM PEQTD1803-05-89 23:14:0015[facility]annCHEM ZKRRO4808-72-42 23:14:0088 [facility]annCHEM ENFTB6989-25-55 23:14:003.5[facility]annCHEM PANEL 2016-02-29 23:14:008[facility]annCHEM UZSQQ6219-48-75 23:14:0089[facility] CupygxiVUMNEXIOPX1502-09-75 23:14:00 Test Item Value Reference Range Interpretation Comments PROTIME (test code = PROTIME) 13.2 s 12.0-14.7 [facility] YkaxuniAEHIZJSJKN7379-82-12 23:14:000.97[facility] HermannHEMATOLOGY 2016-02-29 23:14:0015.3[facility] HbhonqqRWQNJPWATL9314-77-81 23:14:0032.9[facility] KsvczceGTMWJVFEEA9100-59-08 23:14:0043.8[facility] EnirkhaYLNBYGHSME8079-32-41 23:14:00 Test Item Value Reference Range Interpretation Comments MCH (test code = MCH) 28.1 pg 27.0-31.0 [facility] RsgltpiZGAIQGDQWP4724-30-40 23:14:0085.5[facility] HermannHEMATOLOGY 2016-02-29 23:14:005.3[facility] RoqovprXGCXILTFVK8666-44-24 23:14:0014.4[facility] KeaxspjKAAIYGPVYG3547-27-54 23:14:005.12[facility] TwfsnuyYFQLYEUAAK5391-22-29 23:14:33705Dcyyzkgk ZeojshpYCZOSSVKLA8931-44-38 23:14:008.1[facility] KEMEYXBVJZ9790-43-32 23:14:0057.2[facility] XfjlliuDORZDYZTGB0831-41-08 23:14:00 11.7[facility] AbqmugrQDUUUGEDFJ2925-13-27 23:14:0024.1[facility]annHEMATOLOGY 2016-02-29 23:14:000.1[facility] HkhernfPGRRMANSQW5096-81-68 23:14:000.6[facility] ZtcluksMHYMNLXBMM8214-04-87 23:14:001.3[facility] PorljvxXXFMKQMYGU7820-91-64 23:14:000.3[facility] CrboxitOOFWIDOQNF4866-61-64 23:14:003.0[facility] MEZWWRMJJH7417-38-74 23:14:005.9[facility] VcwchygNZYQZEQJQQ0758-31-49 23:14:001.1 [facility]annCARDIAC FMWHRWL1033-12-26 17:04:000.7[facility]annCARDIAC TFKJNQU1146-84-13 17:04:000.7[facility]annCARDIAC KVASFLO2084-66-12 17:04:00 <0.02[facility]annCARDIAC TKMZTXI7499-16-18 17:04:0097[facility] ANMSBTXTVMEA4298-00-37 17:04:0018.3[facility] MttshuaVWXOLBEHIILM8045-30-04 17:04:0078[facility] FjnwejvVGRSDAUBSUMJ3037-82-80 17:04:65704Uakubbxd Maciej NHHYRIZQSLQH5556-28-56 17:04:0010[facility] KozjobrWHAUQDHOUYMQ4580-70-31 17:04:00 0.90[facility] XwulazvPSNMEYAHOIXL9701-65-41 17:04:0020[facility] RTNLARLSUYIE7958-13-26 17:04:009.4[facility] FhqzuvfQTAKKGSPYCPO7504-31-93 17:04:004.3[facility] ZuzydxfNKTJCDDMAJDN6804-22-78 17:04:03431Ftpgbnfi Maciej YCDHOFMCOOFB5710-32-40 17:04:67609Qoniglkp IrwunevGHCSTMPYCB2100-64-26 17:04:00 9.6[facility] XotmiojRPDAQTNXPM0231-78-59 17:04:0041.4[facility] HermannHEMATOLOGY 2015-09-04 17:04:0013.1[facility] MnyvzpvPHEPTLZOMH4321-50-10 17:04:004.74[facility] HitbfysSHHJXYCRQM5323-56-48 17:04:0087.3[facility] GvqgccbVFZLZFPPDF1553-20-10 17:04:0031.5[facility] KixlephVOLYWWDOYZ7875-40-01 17:04:00 Test Item Value Reference Range Interpretation Comments MCH (test code = MCH) 27.5 pg 27.0-31.0 [facility] ByvdxtfGEDRNFYLZA8942-83-06 17:04:008.7[facility] HermannHEMATOLOGY 2015-09-04 17:04:31884Bgpidqgc XealjhlWESKEYQMLB5065-75-99 17:04:0014.4[facility] MttlrmyYPEORQHLUB3809-92-03 17:04:000.1[facility] FmjekfhPXRWPGOLXR0219-40-01 17:04:000.5[facility] SqfpjezTZDQOCDSVQ0840-42-06 17:04:00Normal (09/04/15 11:04 AM) [facility] AntprmqOVXRSLVZJR9120-22-42 17:04:00Normal (09/04/15 11:04 AM)[facility] TwweamqXTPRYJCPMH9373-80-41 17:04:0093.3[facility] UubtjhoDZCWFTMZFG2056-06-32 17:04:000.2[facility] DehmftdWGLAMUUBCK8344-34-56 17:04:005.4[facility] KARFIXGPEV0891-39-32 17:04:001.1[facility] UpsonvyGVGKVWUVLG5437-22-44 17:04:009.0 [facility] DfkjkreWRNAAA7861-63-58 17:04:0014[facility] QilghuoCSKJKI0878-47-42 17:04:13854Raxzqbzs ZezodfuWDIRRZ4704-70-50 17:04:0054[facility] HermannLIPIDS 2015-09-04 17:04:0071[facility] RqakjesATCMRH5627-35-68 17:04:87290Wtcnvklg TibedugOIOJTH2712-02-95 17:04:003.67[facility]annCARDIAC XUEVVON7459-61-61 10:50:000.6[facility]annCARDIAC PYIDMJS5545-27-44 10:50:000.6[facility] CARDIAC TENNMLM3515-98-02 10:50:00<0.02[facility]annCARDIAC ENZYMES 2015-09-04 10:50:80582Bbqaqegk HermannCARDIAC YPNHKMK0481-07-79 04:33:65483 [facility]CARD[facility]AC IKDVIKA5272-58-49 04:33:00<0.02[facility] CARDIAC RXSYPTJ1755-69-84 04:33:000.8[facility]annCARDIAC MBTZYMS5084-65-92 04:33:000.7[facility] HermannCHEM JPPGF9072-09-25 04:33:0087[facility] HermannCHEM PZVMD4697-02-59 04:33:008[facility]annCHEM PBVSH7501-59-59 04:33:000.82 [facility]annCHEM AESFU4221-14-09 04:33:21705Wzgrtieg HermannCHEM PANEL 2015-09-04 04:33:78424Mvxrqbyc HermannCHEM NJDAZ9067-89-64 04:33:003.9[facility] HermannCHEM NKKXV1364-13-49 04:33:34057Xdlstaok HermannCHEM JBWJL0309-96-40 04:33:0013.9[facility]annCHEM XWWYE9538-16-22 04:33:009.2[facility] HermannCHEM VUQXH4825-35-05 04:33:0025[facility] ZdcorlySCENBUBUEV1251-40-61 04:33:007.4 [facility] WnjsdsaZAUJFNKKZJ6352-24-99 04:33:0012.4[facility] HermannHEMATOLOGY 2015-09-04 04:33:004.57[facility] TucglnjWKZIZCEGQY2849-08-84 04:33:0039.4[facility] TswcrddLKXHKDBHPJ0199-60-58 04:33:0086.1[facility] GrwggxzEDFENPVGKK9731-42-20 04:33:0014.7[facility] BllngcdWLLNHGNEKZ7000-08-06 04:33:0031.6[facility] ZHVKHKGCCZ3870-16-37 04:33:00 Test Item Value Reference Range Interpretation Comments MCH (test code = MCH) 27.2 pg 27.0-31.0 [facility] ClutqetOPDZCYSQWG1000-02-48 04:33:008.3[facility]annHEMATOLOGY 2015-09-04 04:33:62511Gdpsrckx MfbjukvXXZGWXOVFG7777-71-11 04:33:005.5[facility] FkznfheUZTQKMHRSS9282-97-38 04:33:006.5[facility] ZqknirmGWQROVASZK8444-54-21 04:33:0031.7[facility] KqxaccbJBRLLGVKFX0402-63-26 04:33:0055.0[facility] NQKQGVOXQE7660-70-93 04:33:000.5[facility] GhylnamIBTODOSUCZ1814-81-77 04:33:002.3 [facility] VjxggvkXCCTSLYVRN5728-86-82 04:33:004.0[facility]annHEMATOLOGY 2015-09-04 04:33:001.3[facility] PaxifgiWTFYDICTEQ5763-46-74 04:33:000.1[facility] FfhnpiuEPTCXJMGSN5868-61-56 04:33:000.4[facility]annCARDIAC KXJXZNG7907-82-31 10:25:00<0.02[facility]annCARDIAC XYMWVAJ2020-58-91 10:25:0075[facility]annCARDIAC HTZBBJS6761-24-93 10:25:000.9[facility]annCARDIAC ENZYMES 2015-07-16 10:25:001.2[facility] HermannCHEM RAKLB1975-63-40 10:25:24836Ojamalkz HermannCHEM CJJBD3082-43-56 10:25:000.6[facility]annCHEM CNVLS8834-89-96 10:25:003.1[facility] HermannCHEM KMEMZ9178-45-89 10:25:009.0[facility]annCHEM HCOAZ9541-00-24 10:25:006.3[facility]annCHEM WZJBL9156-22-68 10:25:0014 [facility]annCHEM OBWFC8619-95-56 10:25:0089[facility]annCHEM PANEL 2015-07-16 10:25:0019[facility]annCHEM JITWT9847-46-55 10:25:0025[facility]annCHEM KTFEQ5345-94-44 10:25:004.2[facility]annCHEM JXGAN4389-54-94 10:25:99525Otcjegbf HermannCHEM AHNVY6826-05-47 10:25:0014[facility]annCHEM TTATK3537-21-17 10:25:000.70[facility]annCHEM HKROX3463-68-01 10:25:31417 [facility]annCHEM QWSRD5411-04-73 10:25:0078[facility]annCHEM PANEL 2015-07-16 10:25:0020[facility]annCHEM ACTWE5205-04-26 10:25:0010.2[facility]annCHEM ANYUL7383-45-64 10:25:001.0[facility]annCHEM JYPRK2345-62-61 10:25:003.2[facility] EdsjwrrTVLJWZRYPY9802-07-98 10:25:008.6[facility] AYLVCNOHRN6172-98-99 10:25:26189Dylaprzb GzzvpqzNEYHVWRGJX9463-81-11 10:25:00 14.3[facility] RdaoielQZQAOSLARY1476-50-99 10:25:004.53[facility]annHEMATOLOGY 2015-07-16 10:25:005.5[facility] OrdgnhvCMSWCDIPIZ3743-19-16 10:25:00 Test Item Value Reference Range Interpretation Comments MCH (test code = MCH) 27.9 pg 27.0-31.0 [facility] PuauahvVUTZDREDYT7344-28-80 10:25:0031.5[facility]annHEMATOLOGY 2015-07-16 10:25:0088.6[facility] ZpenmovXEZQKLYMNJ4965-81-79 10:25:0040.2[facility] TscdafiMGXPYVUJQQ7720-57-29 10:25:0012.6[facility] JtcpywiZWMTTIOJBZ4627-78-02 10:25:000.2[facility] SjcnwluHEAPBVTIKI9231-44-12 10:25:002.0[facility] TRDZNONVJW3137-81-21 10:25:000.9[facility] QtnbnkmNKXDDUQOFU8416-14-32 10:25:000.6 [facility] AguuxheZKHZJUFIED6683-60-87 10:25:002.6[facility]annHEMATOLOGY 2015-07-16 10:25:0011.0[facility] VokxhonAHMPDNPMOQ0093-59-53 10:25:004.0[facility] LjsgrvuCCRKSPDWVP5476-45-37 10:25:0036.1[facility] FzzadbcGNIOEPPHNK2954-42-81 10:25:0048.0[facility] EuhfmwdNXGRXMMXUQ8452-28-77 10:25:000.1[facility] CARDIAC ODDYQYB8281-11-96 04:22:00<0.02[facility]annCARDIAC ENZYMES 2015-07-16 04:22:0088[facility]annCARDIAC IFRGZPP6537-82-79 04:22:001.1 [facility]annCARDIAC OXGHQSX3671-15-27 04:22:001.0[facility]annHEMATOLOGY 2015-07-15 21:33:006.4[facility]annCARDIAC LTFISCV8073-77-57 21:33:00<0.02 [facility]annCARDIAC COLTJRH8161-94-37 21:33:001.2[facility]annCARDIAC NRGHYAP1786-14-67 21:33:82023Oxkegpoi HermannCARDIAC EONFCAZ2694-73-53 21:33:00 1.2[facility] HermannCHEM YFARD5787-32-74 21:33:0090[facility]annCHEM PANEL 2015-07-15 21:33:0091[facility] HermannCHEM GCVXO7039-94-50 21:33:0019[facility]annCHEM DYIMA2883-24-81 21:33:0017[facility]annCHEM EXLFU8074-12-33 21:33:0012[facility]annCHEM OPXZB0224-46-50 21:33:000.8[facility] HermannCHEM RFCCI5510-71-26 21:33:0011.1[facility]annCHEM JZTFO9193-13-37 21:33:003.5 [facility]annCHEM HEHME8813-19-71 21:33:0027[facility]annCHEM PANEL 2015-07-15 21:33:006.8[facility] HermannCHEM RVSST6270-12-21 21:33:008.7[facility] HermannCHEM KEKDH7460-02-11 21:33:003.3[facility] HermannCHEM USCUS7251-11-73 21:33:001.1[facility] HermannCHEM JKIAZ8341-41-96 21:33:000.80[facility]annCHEM DUSTB9151-19-73 21:33:12185Jlhjzsbn HermannCHEM YWRAP1171-10-96 21:33:47463 [facility]annCHEM HIMOP4031-14-29 21:33:004.1[facility] HermannCHEM PANEL 2015-07-15 21:33:0010[facility] HermannCHEM LEJMN7126-82-60 21:33:0072[facility] ErkocgzHSEESGJYOV6945-88-07 21:33:003.3[facility] YwjphsyDEBPSMPGPG6924-35-38 21:33:000.2[facility] WxzebhrZXHMXRUJKP9084-08-24 21:33:000.6[facility] OJTNOFKMSP4113-34-41 21:33:002.3[facility] MhpqrocDZRFWRXPOG9185-44-31 21:33:00 51.8[facility] FgjfsrgMYUUALOWWQ7014-97-62 21:33:000.6[facility]annHEMATOLOGY 2015-07-15 21:33:003.1[facility] DxkyjggLLJPIEQBNW6149-10-49 21:33:009.4[facility] ZpvnjmlPUGDRCFAGB7529-08-11 21:33:0035.1[facility] IkzzlzeDTNZBNXTJU2776-62-90 21:33:000.0[facility] DufiyotNOGAUPYDFX7449-08-67 21:33:009.1[facility] WXJXOJSWOG7435-68-57 21:33:0087.6[facility] SrmhtfbUJDHJSGFYH3265-49-71 21:33:00 12.9[facility] JqmsjbyINCJDXWQDA8824-34-81 21:33:0039.8[facility] HermannHEMATOLOGY 2015-07-15 21:33:0032.3[facility] TjsfgxpGUESHCXVJV6862-16-71 21:33:0014.8[facility] NijnyeuUABYKPHPSO0079-21-94 21:33:00 Test Item Value Reference Range Interpretation Comments MCH (test code = MCH) 28.3 pg 27.0-31.0 [facility] BmvgdrcQFJTEOSZAM4673-22-57 21:33:95414Hzopmxrn HermannHEMATOLOGY 2015-07-15 21:33:004.54[facility] QzpmlbbUUWDXSLGEY7704-16-85 19:18:00Negative (05/18/15 2:18 PM)[facility]annCARDIAC ISEGGYK8956-34-12 18:26:00<0.02 [facility]annCHEM QZQSU6680-02-44 18:26:000.1[facility] HermannCHEM PANEL 2015-05-18 18:26:003.9[facility] HermannCHEM KJDUK8492-81-40 18:26:82681Wlubgztq HermannCHEM FWPRE1365-77-80 18:26:000.5[facility] HermannCHEM EASBA8413-04-81 18:26:0022[facility] HermannCHEM OJKIZ0336-15-01 18:26:0018[facility] HermannCHEM TKEGV7860-47-19 18:26:007.9[facility] HermannCHEM TQIYD4847-66-38 18:26:004.0 [facility]annCHEM JORXI0726-13-09 18:26:000.4[facility] HermannCHEM PANEL 2015-05-18 18:26:001.0[facility] HermannCHEM WETEB7261-78-11 18:26:32362Wdbpxurk HermannCHEM NKMCV0659-61-96 18:26:0078[facility] HermannCHEM KEIBM0495-04-76 18:26:18500Rapfgtwv HermannCHEM YHRTM4043-37-00 18:26:003.9[facility] HermannCHEM KEFOX3429-11-61 18:26:000.9[facility] HermannCHEM PCXLU4909-53-12 18:26:0087 [facility]annCHEM VFBRL9111-44-87 18:26:007[facility] HermannCHEM PANEL 2015-05-18 18:26:53984Opadlimr HermannCHEM QUUKB1483-66-17 18:26:0028[facility] HermannCHEM ZASTH0006-40-80 18:26:0010.2[facility] HermannCHEM AWMFU3131-56-79 18:26:0010.9[facility] QdtpxpsVDUGZPGBVO7709-58-93 18:26:0014.2[facility] OXUQMZOHIB3584-80-97 18:26:004.96[facility] ZydjjgxJDOTHGXMGV3556-36-70 18:26:00 Test Item Value Reference Range Interpretation Comments MCH (test code = MCH) 28.7 pg 27.0-31.0 [facility] MfvuboxNAHITLKERJ8904-42-93 18:26:0032.9[facility]annHEMATOLOGY 2015-05-18 18:26:0043.3[facility] UktzzjtVCQVFBAIAS6864-96-47 18:26:0087.2[facility] QeaggydLBFFHIHFTP1958-09-15 18:26:006.8[facility] VdbndcaVTMOKYVZSY9744-58-49 18:26:95610Xkiskakt KfsejpaCLEKMUYJXB9675-78-30 18:26:008.2[facility] XFHYZMRCYG9457-22-04 18:26:0014.5[facility] ChsgsaoLHSWYBZPDN0216-18-65 18:26:00 55.6[facility] HcyymhdCYWFAAASVZ2172-60-07 18:26:0032.7[facility] HermannHEMATOLOGY 2015-05-18 18:26:008.5[facility] ZosjeacKRRQXRWRXV8482-83-46 18:26:003.8[facility] GxkhmlzEHJMVDFCLS6782-71-30 18:26:000.6[facility] CecorpjMJSMMIINME2201-86-19 18:26:002.2[facility] BmepajzLMYOMEGZPY6196-63-91 18:26:002.6[facility] WSOSLICKLR8810-35-35 18:26:000.2[facility] MrnanmmYANUJDQILN1379-88-28 18:26:000.6 [facility] YfotovzAUOPFIJOHU3748-48-26 18:26:00Positive *NA*(05/18/15 1:26 PM) [facility] SpapsisTNNSGCNOMM2994-06-83 18:26:24184777Ycpmqiki HermannIMMUNOLOGY 2015-05-18 18:26:005.5[facility] HermannCARDIAC RMVOCEQ5193-39-25 18:51:00<0.02 [facility]annCHEM TFUWM6212-81-95 18:51:0090[facility]annCHEM PANEL 2015-05-09 18:51:0028[facility]annCHEM GIAWW7423-89-46 18:51:009.6[facility]annCHEM PFUQZ4706-15-06 18:51:69407Ysksrtia HermannCHEM RYPLJ5353-83-71 18:51:000.8[facility]annCHEM XCLKN5867-84-88 18:51:98180Uetpjbfd HermannCHEM QFVIB0118-65-57 18:51:003.7[facility]annCHEM LONZQ9039-78-08 18:51:26366 [facility]annCHEM OUJIC1982-90-96 18:51:007[facility]annCHEM PANEL 2015-05-09 18:51:009.7[facility] DvktkivJNSZGGJEBH2206-15-76 18:51:0014.4[facility] YvqjutuOIWNXMGDLP7918-27-60 18:51:0032.5[facility] JvsskgfGYRCPUPOJT9238-52-41 18:51:00 Test Item Value Reference Range Interpretation Comments MCH (test code = MCH) 28.7 pg 27.0-31.0 [facility] YgesjiwIMPIVHAYBX3965-83-80 18:51:18919Vveqnrqw HermannHEMATOLOGY 2015-05-09 18:51:007.6[facility] GjznnftXIUXWXBHUD9877-18-70 18:51:0088.2[facility] FfezbprEHATKGXQIP8450-83-40 18:51:0041.9[facility] FvgndqdZLBOMODKVP3232-69-82 18:51:004.75[facility] HjbcqynNQKCFNNXUX5050-11-02 18:51:0013.6[facility] GOJWTUNAUF2477-43-11 18:51:005.6[facility] QmjciawNOUDRAYEYQ4272-96-75 18:51:002.1 [facility] YrhslcnONPCWZZKNI5567-31-28 18:51:000.1[facility]annHEMATOLOGY 2015-05-09 18:51:000.2[facility] CurkhwzKNKNEHRVDJ5330-34-88 18:51:000.4[facility] AuoqyxpUXJDZMNYNU3236-74-66 18:51:0050.8[facility] PltzzcfQPNJWRQVVK6452-52-97 18:51:002.8[facility] GotrgwbHRXZMPCCYI0431-60-46 18:51:002.9[facility] WHEKAUKROO8619-56-93 18:51:001.1[facility] OknbovhNAWMATMHPB2912-39-75 18:51:007.7 [facility] ZxkzpjcKNTUHBNQFO2719-32-59 18:51:0037.6[facility] HermannCARDIAC ENZYMES 2015-05-02 22:03:00<0.02[facility]annCHEM GXWWV7451-29-32 22:03:003.2 [facility]annCHEM IZJPJ4959-23-10 22:03:002.1[facility] HermannELECTROLYTES 2015-05-02 22:03:0012.4[facility] QrkmfevRIVZQKVVFJRB6933-33-69 22:03:0068[facility] WtwmmdiYHXJRHZCOQXZ2246-46-07 22:03:61905Nqmygjyu HdawjzcIBDSOATRSLQM7408-51-39 22:03:10754Xqplfrdk PxjdzhjSASRIQJXMVGT3591-89-97 22:03:0028[facility] JCDMGLGRHEZI6566-11-01 22:03:008.8[facility] YraaizyNZHKXQGWRXHA9610-10-94 22:03:003.4[facility] PkmweydTSBBTCWDHIVH9659-99-08 22:03:000.9[facility] XWJWDVIPJUKN1038-23-51 22:03:0092[facility] ZdnhahrLKSPQYBSUYRS2001-76-46 22:03:00 6[facility] MpruezqIPHCXBCWDA1436-70-11 22:03:008.0[facility]annHEMATOLOGY 2015-05-02 22:03:0014.1[facility] EewujwqNHIDXBLGAV6094-64-05 22:03:17425Vaqxpjqf PuizubnOYLPUUUSKI4451-91-15 22:03:0032.6[facility] UizritzTTMFQJKACS2046-86-82 22:03:008.0[facility] GtrqajaIMBXERZDSL0494-52-56 22:03:0040.2[facility] JGVZODTIIJ0987-28-51 22:03:0087.4[facility] CivpmciOUXYEJGDCV9348-14-81 22:03:00 13.1[facility] JdhlebiKEVNIEBRAA7575-24-89 22:03:004.60[facility]annHEMATOLOGY 2015-05-02 22:03:00 Test Item Value Reference Range Interpretation Comments MCH (test code = MCH) 28.5 pg 27.0-31.0 [facility] LobazdnZCPIYBHAXZ6134-48-34 22:03:0026.3[facility]annHEMATOLOGY 2015-05-02 22:03:0060.9[facility] ZikmmojRDIGGGBXOB0728-42-80 22:03:001.0[facility] LubqkevHVSESFMMHV8720-12-18 22:03:003.0[facility] DmtjvssSHPFKZOGBE4934-62-63 22:03:008.8[facility] DjcrcbtIEOXZNFGEL0819-84-17 22:03:000.7[facility] JKOKCQPKHO1126-09-60 22:03:000.2[facility] GekdgmmNGDOOJQMCN0658-09-94 22:03:002.1 [facility] KmmpcfgUTFRGLZYLO2468-63-51 22:03:004.9[facility]annHEMATOLOGY 2015-05-02 22:03:000.1[facility]annURINE AND HWLVY3757-73-31 21:38:00Negative (05/02/15 4:38 PM)[facility] IIRTJ6403-16-07 21:38:00Moderate *ABN*(05/02/15 4:38 PM)[facility] SUHMA4272-95-47 21:38:00None Seen (05/02/15 4:38 PM)[facility] JROBB0517-78-41 21:38:00None Seen (05/02/15 4:38 PM)[facility] JLIHB4596-44-66 21:38:00Negative (05/02/15 4:38 PM)[facility] KXCZG6791-74-45 21:38:00Negative *NA*(05/02/15 4:38 PM)[facility] UXYWY4459-36-09 21:38:000.2 [facility] CWJAA6308-18-77 21:38:00Negative (05/02/15 4:38 PM) [facility] EURIE4458-97-94 21:38:00Negative *NA*(05/02/15 4:38 PM) [facility] WSLIZ2553-77-68 21:38:00Yellow *NA*(05/02/15 4:38 PM) [facility] HLTYE1800-98-20 21:38:00 Test Item Value Reference Range Interpretation Comments UA pH (test code = UA pH) 6.0 1 5.0-8.0 [facility] OFVBS1289-36-71 21:38:00Slight Cloudy (05/02/15 4:38 PM) [facility] EZGXH0847-63-80 21:38:00Negative (05/02/15 4:38 PM) [facility] HOGUY1052-85-98 21:38:00 Test Item Value Reference Range Interpretation Comments UA Spec Grav (test code = UA Spec 1.006 1 Grav) [facility]annCHEM RXWJO0194-27-45 09:28:0034[facility]annCHEM PANEL 2015-03-24 09:28:000.6[facility]annCHEM KSAOV1549-86-07 09:28:0095[facility]annCHEM RGPDU0398-37-73 09:28:006[facility]annCHEM BULHD6818-84-25 09:28:001.1[facility]annCHEM BNKKG2667-33-42 09:28:003.1[facility] MBPWPFWUHQ9996-60-49 09:28:0011.3[facility] JnokytmYXLUEKDSGY3291-09-18 09:28:00 27.1[facility] WsyylbfUSFBTHCVYD2727-88-94 09:28:005.9[facility]annHEMATOLOGY 2015-03-24 09:28:003.3[facility] NbngyjtBLYIGBWAWX5090-59-36 09:28:000.7[facility] JabkaosYJTSFLNATK2379-54-28 09:28:0055.0[facility] YpyupqcSYSEIIUUQJ8604-56-33 09:28:000.7[facility] DefoxqfNBQOXUBWRT1998-10-97 09:28:001.6[facility] OTGHKZBAPJ2697-53-26 09:28:000.4[facility] RjjozcjETJRHGNITQ9283-07-69 09:28:00 4.21[facility] MowbfcyCBSFHKKRYD7873-18-15 09:28:005.9[facility]annHEMATOLOGY 2015-03-24 09:28:50580Ccrpfblm WpadxkuXWQBLCECYK6678-43-76 09:28:0032.4[facility] AkbjroeNFLTVFLXTL2041-58-31 09:28:0014.2[facility] IvurcleGHKICSQPFS1409-90-16 09:28:008.6[facility] LvhrnkcKEMWYVOAZX1271-34-43 09:28:0037.2[facility] RAVWFRIDEF9872-10-63 09:28:0088.3[facility] HdhmxppBOGKNPQZZT0410-48-43 09:28:00 12.1[facility] EyvlwwkWUMPVGPPAM8493-23-20 09:28:00 Test Item Value Reference Range Interpretation Comments MCH (test code = MCH) 28.6 pg 27.0-31.0 [facility]annCHE[facility] CDKRH3330-34-50 09:28:82919Xwgoeajj HermannCHEM PANEL 2015-03-24 09:28:81905Bvyortqh HermannCHEM UJWJB6511-87-08 09:28:000.7[facility]annCHEM SXBDW6584-27-68 09:28:004[facility]annCHE[facility] NTETQ0240-04-43 09:28:003.2[facility]annCHEM HGXXQ1811-88-75 09:28:87613Zgohnhwd HermannCHEM VMSTL3716-30-95 09:28:0091[facility]annCHEM EXCDA7053-29-68 09:28:003.5 [facility]annCHE[facility] AMGNV4728-43-00 09:28:006.6[facility]annCHEM PANEL 2015-03-24 09:28:57358Pgacoypz HermannCHEM UYSRU3714-72-18 09:28:009.1[facility]annCHEM XVUOD8289-82-77 09:28:0027[facility]annCHEM QYELL6129-84-37 09:28:0011.2[facility]annCHEM ZEYCF8226-62-46 09:28:0021[facility]annURINE AND UFALN8842-43-36 18:14:00Negative (03/23/15 1:14 PM)[facility]annCARDIAC DEEXEMU6148-60-46 10:51:000.8[facility]annCARDIAC XMETUBZ8497-38-25 10:51:00 70[facility]annCARDIAC HAWMSQR3851-67-63 10:51:001.1[facility]annCHEM ITGUG7695-24-57 10:51:65715Nezuakyd HermannCHEM YINQT5858-74-56 10:51:0027 [facility]annCHEM JACIS9298-15-25 10:51:009.2[facility]annCHEM PANEL 2015-03-23 10:51:79259Lcnjfclc HermannCHEM BVMVB6947-56-57 10:51:89796Noetflju HermannCHEM KRNXQ8122-79-94 10:51:003.5[facility]annCHEM YTBQD4700-64-71 10:51:000.7[facility]annCHEM DAVYL0369-31-49 10:51:008[facility]annCHEM EGAIA5215-89-26 10:51:19469Nqoobqth HermannCHEM VDMWC7658-29-84 10:51:0010.5 [facility] DvqbatsBUVKTQWNMI2929-15-59 10:51:001.3[facility] HermannHEMATOLOGY 2015-03-23 10:51:003.4[facility] MmzpzbgIOJUAPWHVM7076-23-63 10:51:000.6[facility] LfnoyjmGIQFYUYOOT6483-77-26 10:51:004.0[facility] VrlvzwwCFVIAJUKGK5670-92-89 10:51:000.2[facility] SfnskknPSPNGJRLST7385-85-74 10:51:000.6[facility] ULQZYVMMUE2160-80-40 10:51:0011.0[facility] ZglubjbQAUUEPAHZU0790-80-59 10:51:00 23.6[facility] HipemcqDSXUJIJABO1949-17-70 10:51:0060.8[facility] HermannHEMATOLOGY 2015-03-23 10:51:008.3[facility] ZybpzbpUVZJCTWFSC7263-61-07 10:51:12923Idsnejwf YqtizxzHBXVDWZKGS0218-93-39 10:51:0014.6[facility] JezhpmhYGQVWJKFVI9310-78-73 10:51:0088.0[facility] FmuvukqKLOOKDSGTY0466-30-74 10:51:00 Test Item Value Reference Range Interpretation Comments MCH (test code = MCH) 28.7 pg 27.0-31.0 [facility] OshflxhESMVAXZNQD7283-44-17 10:51:0034.7[facility] HermannHEMATOLOGY 2015-03-23 10:51:0032.6[facility] SxiwurxCPAIIJWHHU5209-67-71 10:51:0011.3[facility] QrolunoIWFRGTSOZY1018-01-04 10:51:003.94[facility] BouqnouRMXVLCFLXI7011-23-02 10:51:005.6[facility]annCARDIAC AIBABWJ6495-93-47 10:19:001.6[facility] CARDIAC LANEXBH3108-90-04 10:19:001.0[facility]annCARDIAC ZLRZYJD0466-65-03 10:19:0064[facility]annCHEM RXCFV3697-23-48 10:19:94548Efariqrw HermannCHEM USLIP5935-68-07 10:19:008.7[facility]annCHEM RJTHW6186-01-56 10:19:26830 [facility]annCHE[facility] GUCSI9079-21-92 10:19:003.9[facility]annCHEM PANEL 2015-03-22 10:19:49104Bgcbkwje HermannCHEM BXLEX4094-99-86 10:19:0027[facility]annCHEM ZBCUM6387-18-36 10:19:0094[facility]annCHEM VXZRL3479-97-70 10:19:008[facility]annCHEM DDOTP2723-15-14 10:19:000.6[facility]annCHEM SNPZL7838-16-69 10:19:008.9[facility] QoyrdnaDNAYKMOTRP8446-37-97 10:19:000.2 [facility] FvzxmatUBPKRQPMUO4819-58-94 10:19:000.5[facility] HermannHEMATOLOGY 2015-03-22 10:19:000.9[facility] GlnyyhiZAHOBQNQOE7367-63-45 10:19:0011.2[facility] TmlvvvdJVUHNQRDCG7185-52-56 10:19:002.1[facility] XbkjkihQKJBEKKPXR5452-91-59 10:19:003.7[facility] VfkhshlBICQAJQVTT0649-76-12 10:19:001.6[facility] OGNLJGOHCA2399-73-74 10:19:0048.6[facility] GkoiyrjNRYCEBVZEX8671-66-78 10:19:00 35.6[facility] BrjcaybSFKZTKTILT7367-47-76 10:19:008.9[facility] HermannHEMATOLOGY 2015-03-22 10:19:004.4[facility] FgmncyiKMZSIUJKAQ5158-32-41 10:19:00 Test Item Value Reference Range Interpretation Comments MCH (test code = MCH) 29.9 pg 27.0-31.0 [facility] TuqqwevGDIMUNGJWC8325-51-92 10:19:0086.5[facility] HermannHEMATOLOGY 2015-03-22 10:19:0034.6[facility] OoekpffPZYCOWDAHR0176-08-51 10:19:0011.7[facility] ZmvfffzEDGJHLHNQP9037-45-76 10:19:003.92[facility] KirzvquXHYBZGJAEJ9216-69-55 10:19:0033.9[facility] OqcettzHJVNRVBRJU6647-54-79 10:19:0014.6[facility] BPHOCVZMVQ7839-73-29 10:19:31601Vjguukwf HermannCARDIAC SNONNDK5853-94-86 03:22:001.6[facility]annCARDIAC ZBSPDRP4908-12-89 03:22:0077[facility] CARDIAC YKDVRXM6069-93-76 03:22:001.2[facility] HermannCHEM EDAZY5084-34-30 02:44:001.4[facility]annCARDIAC HTGWWOB0693-56-64 21:13:00<0.02[facility] HermannCHEM ORDYM2768-56-65 21:13:003.3[facility]annCHEM SYWCG2024-20-10 21:13:001.1[facility]annCHEM DWQNU0079-17-48 21:13:0016[facility]annCHEM DUPRA2274-88-93 21:13:52909Uzpvkjvu HermannCHEM WWEFP6813-54-98 21:13:0025 [facility]annCHEM IUOUR9466-79-12 21:13:000.5[facility]annCHEM PANEL 2015-03-21 21:13:0032[facility]annCHEM VJPDH3994-78-47 21:13:003.7[facility] HermannCHEM EIDRA4760-30-09 21:13:007.0[facility] HparnbqJGKMUTGEZQ8076-62-45 21:13:000.0[facility] UraqezrHGMLEHNZLI6601-78-80 21:13:001.04[facility] EISLNFGRTB3526-13-86 21:13:00 Test Item Value Reference Range Interpretation Comments PT (test code = PT) 13.6 s 12.0-14.7 [facility] KbrqueaIPNNRZUPKJ2483-99-43 21:13:00 Test Item Value Reference Range Interpretation Comments PTT (test code = PTT) 35.2 s 22.9-35.8 [facility]annCARDIAC AYKUWCE6730-08-39 21:10:006[facility]annCARDIAC ZMMHNQV5183-86-24 21:02:00<0.02[facility]annCARDIAC INTSHGY0795-86-05 21:02:0031[facility]annCARDIAC UVCCZDI9716-31-18 21:02:000.8[facility] CARDIAC ONOTHQC1393-55-70 21:02:0070[facility]annCARDIAC DWDFGZJ5676-81-27 21:02:001.1[facility] HermannCHEM LRIJX4097-24-38 21:02:96904Imwtpgli HermannCHEM LQSKK4570-51-97 21:02:0099[facility]annCHEM WRJZI6647-34-33 21:02:000.6 [facility]annCHEM TYFKI5122-67-09 21:02:0011[facility]annCHEM PANEL 2015-03-11 21:02:009.4[facility]annCHEM GFAWL1782-99-08 21:02:003.1[facility]annCHEM EYNVZ7040-39-40 21:02:001.1[facility]annCHEM AZEXC4259-89-86 21:02:0073[facility]annCHEM YRJJC8150-56-17 21:02:008[facility]annCHEM KDUVF9554-09-45 21:02:000.7[facility]annCHEM HAPIP1142-07-21 21:02:20570 [facility]annCHEM DPJPK9572-34-99 21:02:003.4[facility]annCHEM PANEL 2015-03-11 21:02:0028[facility]annCHEM RVNPJ2651-75-55 21:02:99360Hibsdcqv HermannCHEM YFTMI3954-77-78 21:02:008.9[facility]annCHEM UKLFE6484-13-47 21:02:006.5[facility]annCHEM PKTYA1771-72-49 21:02:003.4[facility]annCHEM KWGDZ0838-93-81 21:02:0030[facility]annCHEM IXIGL7815-58-51 21:02:0021 [facility] AdhqxowHHBUJMMGUI5019-30-72 21:02:0015.1[facility] HermannHEMATOLOGY 2015-03-11 21:02:0033.1[facility] KbzqsvjPOLNARYVDO8283-76-33 21:02:99748Mhhkifip UncvdxhKCFFNRROQD8349-11-30 21:02:008.1[facility] RynkxtaDSMNSWOLDK6906-05-74 21:02:0034.6[facility] RdiyicnQWYQYFNURP3434-43-82 21:02:0011.5[facility] BVYMEZHQZL7451-09-25 21:02:00 Test Item Value Reference Range Interpretation Comments MCH (test code = MCH) 28.8 pg 27.0-31.0 [facility] MwsgjwwHQMDIBBCUU7287-26-82 21:02:0086.9[facility] HermannHEMATOLOGY 2015-03-11 21:02:003.98[facility] NdkyasqFZFIMCVIYH9244-45-65 21:02:006.5[facility] WwhbpimJQZKMYGDMP3062-06-37 21:02:00 Test Item Value Reference Range Interpretation Comments PTT (test code = PTT) 32.8 s 22.9-35.8 [facility] QtcthyyBPSXRWXKDI7879-67-53 21:02:00 Test Item Value Reference Range Interpretation Comments PT (test code = PT) 13.3 s 12.0-14.7 [facility] QymetgcNWRFXHFNNX0074-54-33 21:02:001.01[facility] HermannHEMATOLOGY 2015-03-11 21:02:000.0[facility] QhyqsaaVFPOGWREID0335-10-44 21:02:003.7[facility] BbthijhLOUXSLYPHE1563-01-05 21:02:000.2[facility] SeotguiILXZHOMVEK2349-32-86 21:02:000.6[facility] PhwjqffBHBGGPYDHX9770-95-05 21:02:001.9[facility] UJDOSRZQTJ1475-39-90 21:02:0056.9[facility] EtwpsnvLCOWPUNITO9669-52-30 21:02:00 2.7[facility] KlfyuanIYKSPCOXBX0440-22-83 21:02:000.4[facility] HermannHEMATOLOGY 2015-03-11 21:02:009.9[facility] WvuvayyQFRAJFRJSX1429-80-88 21:02:0030.1[facility] HermannCARDIAC BYPJXFA3870-87-59 09:33:00<0.02[facility]annCARDIAC ENZYMES 2015-03-05 06:16:00<0.02[facility] HermannCHEM BGKQN9534-21-94 06:16:001.1 [facility]annCHEM MJWEK3378-57-12 06:16:003.5[facility] HermannCHEM PANEL 2015-03-05 06:16:000.5[facility]annCHEM DORXN9743-25-49 06:16:000.1[facility] HermannCHEM NRLBD3317-53-82 06:16:0025[facility]annCHEM VAGLB6996-48-60 06:16:0021[facility]annCHEM FHXEY8301-56-90 06:16:003.7[facility] HermannCHEM LDUGY0640-08-02 06:16:28774Zgkxyjot HermannCHEM AJQSL2185-10-14 06:16:000.6 [facility]annCHEM TXGSO7850-51-58 06:16:007.2[facility] HermannCHEM PANEL 2015-03-05 06:16:26357Wpbnlagy MnhaizyALKPVHTQOSUL3764-60-30 06:16:0012.6 [facility] BrfrwrvSYVSJFYBNZSD2297-09-45 06:16:0078[facility] HermannELECTROLYTES 2015-03-05 06:16:009.6[facility] CfcjuxeJHSJLJVIHSPM2285-04-88 06:16:0029[facility] KnkpwfmFJBBUQLFYVEB3276-13-22 06:16:003.6[facility] IstkfrmVWUPEWMQYNBQ4348-23-74 06:16:41221Jcbftdmm OkfcksoAVQAHKRBHMPO4396-21-22 06:16:69435Ttrlwxlg Maciej OQRWMGLVGEKW9420-26-24 06:16:000.8[facility] TabmsnnMBMSDEZMQJBL7854-61-72 06:16:009[facility] VdikhzvFZAYVEMFJYGO9804-31-78 06:16:0096[facility] IFUCGRGGIB9753-86-46 06:16:002.6[facility] VpglotkKUIJVEXLXK1447-97-92 06:16:000.9 [facility] JrvrrqdSCJLORHWMI7448-20-67 06:16:000.7[facility] HermannHEMATOLOGY 2015-03-05 06:16:001.7[facility] CbpvplxXMIVTFUKZE7736-09-22 06:16:006.7[facility] ZczagmnZDZWKWVEWA9919-86-94 06:16:0025.0[facility] FcbitqvWFEADJLTNW1193-12-72 06:16:0064.3[facility] JvamefkGTTJFMKJLP5612-62-78 06:16:008.3[facility] YUPORZPLDX1179-14-35 06:16:000.2[facility] PdkgaclGRUKMWYFCR7881-91-53 06:16:000.1 [facility] JhshuddQROGRLSZZU0513-55-87 06:16:0087.7[facility] HermannHEMATOLOGY 2015-03-05 06:16:0039.7[facility] DvsekswKSHPAULMZX2165-11-15 06:16:008.0[facility] LrtoiskLQISGYDXFK7572-53-51 06:16:83536Tbxnheay JfsfxppWAWKQFXNJJ8627-99-32 06:16:0014.6[facility] IyfjjreKJKUNSAIDC9983-92-23 06:16:0032.4[facility] OBUBQGFYSL9186-80-18 06:16:00 Test Item Value Reference Range Interpretation Comments MCH (test code = MCH) 28.4 pg 27.0-31.0 [facility] ZdqkqebUPGOUXTMPE3158-54-99 06:16:0010.5[facility] HermannHEMATOLOGY 2015-03-05 06:16:004.53[facility] HrllchbLOBTUELLXJ0540-32-92 06:16:0012.9[facility] HermannCHEM HXMZB0143-13-12 09:16:002.0[facility] HermannCHEM YCLSD8025-99-64 09:16:003.6[facility] HermannCHEM RGBMV5178-46-14 09:16:97203Yvfwoevc HermannCHEM ABOVS6287-69-80 09:16:0017[facility] HermannCHEM GUQLM0935-50-66 09:16:003.3 [facility]annCHEM RNODB3664-58-55 09:16:001.1[facility] HermannCHEM PANEL 2015-02-25 09:16:006.3[facility] HermannCHEM BCPCU4636-06-08 09:16:0021[facility]annCHEM UFHMQ0446-78-26 09:16:003.0[facility] HermannCHEM IFWFY5710-08-77 09:16:000.5[facility]annCHEM PGDPL6096-70-21 09:16:21025Tddrewcs HermannCHEM UGOHZ6503-68-85 09:16:0011[facility]annCHEM RRXEM0484-17-52 09:16:009.1 [facility]annCHEM CLXYL3520-04-62 09:16:0099[facility]annCHEM PANEL 2015-02-25 09:16:008[facility] HermannCHEM PIODX4964-66-57 09:16:14777Phhflgwi HermannCHEM JQJPJ6679-80-24 09:16:000.7[facility] HermannCHEM SWOIY2670-78-34 09:16:008.9[facility]annCHEM HZIJY4856-75-28 09:16:02043Kiktpfvn HermannCHEM SQJBY8488-23-79 09:16:0028[facility]annCHEM PQMMB9111-53-70 09:16:003.9 [facility] VcxqsgpRKJDBTGCRU5139-86-14 09:16:12962Vahmlczn HermannHEMATOLOGY 2015-02-25 09:16:008.8[facility] KjdaksaUNRUZDWNMC3772-89-97 09:16:0014.9[facility] EnvkqkiGNXWXYRYNB7338-18-18 09:16:005.9[facility] DqinxseHMTCKPQRMB9976-86-26 09:16:0088.4[facility] NmunryhUZRBIJHJNA5035-89-81 09:16:0037.2[facility] JYXSPJLVMB0804-31-64 09:16:00 Test Item Value Reference Range Interpretation Comments MCH (test code = MCH) 28.6 pg 27.0-31.0 [facility] UfucpgiLTUWWKEPYS9643-99-44 09:16:0032.4[facility] HermannHEMATOLOGY 2015-02-25 09:16:004.21[facility] YrlpwftSUBKEPVIWR7089-76-94 09:16:0012.0[facility] AaxqnieSUFDJCXNEX4218-53-81 09:16:0031.9[facility] WhytkcdUPQHYOINFF7633-22-95 09:16:000.8[facility] LilxqltTQTBPNYBBR7047-89-68 09:16:003.1[facility] HAPVBGUAFX0677-16-34 09:16:0011.6[facility] TrlukuiZTEPRHFUWH9114-65-01 09:16:00 2.9[facility] TmgpbicTHWMNLUUHT2783-55-86 09:16:0052.8[facility] HermannHEMATOLOGY 2015-02-25 09:16:000.7[facility] AwrkemcJLSMRWZYWX3866-09-70 09:16:001.9[facility] IdhmknaRGBRBJAUEX4337-23-57 09:16:000.2[facility] HermannCARDIAC NECXQXY9555-21-78 04:30:0074[facility]annCARDIAC ZNQKUSS2467-69-64 04:30:001.2[facility] CARDIAC AXUOOWQ2410-78-47 04:30:00<0.02[facility] HermannCARDIAC ENZYMES 2015-02-25 04:30:000.9[facility]annCARDIAC AEXKWQJ0150-00-91 23:29:00<0.02 [facility]annCARDIAC QJERTDT3018-22-14 23:29:000.7[facility]annCARDIAC FTFEYVR0029-69-19 23:29:0068[facility]annCARDIAC KSZALCC8572-84-87 23:29:00 1.0[facility]annCARDIAC ELEQAMG6215-14-94 17:33:000.9[facility]annCARDIAC AYNTLDJ9393-66-89 17:33:00<0.02[facility]annCARDIAC ICMQYRC7122-27-27 17:33:000.7[facility]annCARDIAC KWQBXKN1452-91-79 17:33:0076[facility] CHEM DYENY2727-40-24 17:33:0090[facility] HermannCHEM VZPKF4663-14-27 17:33:003.1 [facility]annCHEM AUPTR5637-82-17 17:33:14103Kxtatkax HermannCHEM PANEL 2015-02-24 17:33:000.3[facility] HermannCHEM NFOOF6086-49-54 17:33:001.1[facility] HermannCHEM XGBKK2725-24-58 17:33:007.3[facility] HermannCHEM JRJEG5028-81-76 17:33:0012[facility] HermannCHEM ABJBT5464-16-15 17:33:000.8[facility] HermannCHEM WQPSL1530-08-38 17:33:91514Bofgwcqf HermannCHEM DVZRI5170-45-17 17:33:0088 [facility]annCHEM AEITI4234-17-77 17:33:003.3[facility] HermannCHEM PANEL 2015-02-24 17:33:26148Flmfptyd HermannCHEM RKCIN4303-66-52 17:33:0010[facility] HermannCHEM LMRQS6677-83-77 17:33:0015[facility] HermannCHEM OFMSO1607-60-95 17:33:0022[facility] HermannCHEM WMBKC6703-84-23 17:33:008.9[facility] HermannCHEM EYZYM2389-74-90 17:33:0030[facility] HermannCHEM INUPR6085-78-73 17:33:006.6 [facility]annCHEM SVLVE7789-70-88 17:33:003.5[facility] HermannHEMATOLOGY 2015-02-24 17:33:0055.9[facility] XotbjzvDNNIEMVIIM8536-66-71 17:33:0028.7[facility] MhjelbxBXQABYKIGN2276-88-60 17:33:003.7[facility] SzwkwkcKWVEGOEKEY0669-47-80 17:33:000.7[facility] GybjyecVYCGHVEKER6277-49-62 17:33:001.9[facility] IXPXPHJRTZ7706-83-72 17:33:002.2[facility] NduylteBVZZFFJEFT7123-80-93 17:33:00 12.5[facility] StulesrIECXBMIVUF2715-80-10 17:33:000.0[facility] HermannHEMATOLOGY 2015-02-24 17:33:000.1[facility] GubxmygSTDJXAIOMD8639-54-24 17:33:000.8[facility] SldywnwXFGLKYGMXB7963-61-10 17:33:008.8[facility] FujgbexTOSHCYYEPS2999-24-44 17:33:00 Test Item Value Reference Range Interpretation Comments MCH (test code = MCH) 28.1 pg 27.0-31.0 [facility] MjfajvbSELEVNJUSF9524-22-33 17:33:0014.8[facility] HermannHEMATOLOGY 2015-02-24 17:33:0032.2[facility] SsapmcuEAICGOEBJD1720-82-05 17:33:86753Ywmpudmq AjxjjnpKSSTPUYWVQ7264-60-77 17:33:0011.4[facility] SicgwsnCXHJHOVXNV4049-81-95 17:33:004.04[facility] RhysydnUBEQHBWTMP4281-04-51 17:33:006.5[facility] BFYYIACRXN2261-46-65 17:33:0035.3[facility] HpnpnzfIVVCMGBDTW8971-57-08 17:33:00 87.2[facility] HermannCARDIAC HZEJVHC6459-42-32 09:54:006[facility]annCARDIAC EZBIEBD3575-22-37 09:54:00<0.02[facility]annCARDIAC UWLZNAF3351-20-92 09:54:001.0[facility]annCARDIAC DDYPWLP6453-86-30 09:54:0077[facility] CHEM CWPLG4127-35-74 09:54:001.8[facility] HermannCHEM UTVAF0718-95-37 09:54:26308 [facility]annCHEM QJNVS3249-35-41 09:54:52724Hitgkhjt HermannCHEM PANEL 2015-02-17 09:54:003.8[facility] HermannCHEM ASEEA0903-39-29 09:54:38826Dtfcdrmz HermannCHEM OEIKF4284-59-36 09:54:008.6[facility] HermannCHEM GSCQN6816-75-51 09:54:0011.8[facility] HermannCHEM JIZXA6485-08-83 09:54:0025[facility] HermannCHEM NBLQM2164-23-88 09:54:000.6[facility] HermannCHEM PHWDW8514-68-57 09:54:006 [facility]annCHEM PBAZD6408-36-39 09:54:0072[facility] HermannHEMATOLOGY 2015-02-17 09:54:0011.5[facility] TxmnpsnCARELQ8738-88-36 09:54:0051[facility] BecbrvaRAAURZ7450-00-21 09:54:0017[facility] UvtjdpeQBLNUF7805-71-96 09:54:0096 [facility] RrzdecfZEKSHU0800-78-31 09:54:44917Jflixdbf IbpoflsLFCUOE3618-24-66 09:54:0084[facility] NixssouZUTEPC2914-93-98 09:54:003.22[facility] HermannSPECIAL YEEJPRETL4313-02-15 09:54:005.8[facility] HermannCARDIAC ANFPFHA3221-92-43 04:20:00<0.02[facility]annCARDIAC HBIKFYT9142-09-37 04:20:0092[facility]annCARDIAC EJOQSTN4283-40-93 04:20:001.2[facility]annCARDIAC ENZYMES 2015-02-16 22:59:001.2[facility]annCARDIAC YMLJRNM6268-09-38 22:59:001.3 [facility]annCARDIAC EMFLDQP4754-90-53 22:59:0093[facility]annCARDIAC QLMJFVP6381-88-99 22:59:00<0.02[facility]annCARDIAC NPNTMNO9686-17-47 22:59:004[facility] HermannCHEM CADCH7832-73-50 22:59:51438Hlvsqgsf HermannCHEM FYHCL1522-70-48 22:59:001.0[facility] HermannCHEM AQWBT8965-34-76 22:59:003.6 [facility] HermannCHEM UNOXS9694-30-91 22:59:000.4[facility] HermannCHEM PANEL 2015-02-16 22:59:000.1[facility] HermannCHEM UTXWX4722-04-48 22:59:000.5[facility] HermannCHEM WOXTR8076-66-84 22:59:007.3[facility] HermannCHEM BZLES8878-92-58 22:59:27448Eckjzecv HermannCHEM KSZRU3716-89-49 22:59:0015[facility] HermannCHEM ROIVX8664-12-82 22:59:0021[facility] HermannCHEM RDGUH3154-88-21 22:59:003.7 [facility]annCHEM WTFZE9863-34-42 22:59:003.1[facility] HermannCHEM PANEL 2015-02-16 22:59:001.9[facility] HermannCHEM NSBZL3800-93-16 22:59:0090[facility] HermannCHEM TQMHK4781-58-16 22:59:009.0[facility]annCHE[facility] YNJNM4310-03-02 22:59:0028[facility]annCHEM HQJMN2431-55-43 22:59:37793Opyslhzd HermannCHEM DFCCC4501-19-07 22:59:000.8[facility]annCHE[facility] MUHYX9334-30-78 22:59:0011 [facility]CHE[facility] PTBXF3355-58-26 22:59:003.5[facility]annCHEM PANEL 2015-02-16 22:59:58523Oxhnjmce HermannCHEM HLQIF3095-20-42 22:59:0076[facility]annCHEM GXHAE1965-13-56 22:59:007.5[facility] NoznzflXXLLUYCBCJ9048-03-38 22:59:003.3[facility] XpyqgvpFAQBXKUDBJ8513-58-94 22:59:009.1[facility] QVLYBZSOYR2350-08-59 22:59:0028.9[facility] VmtxourXMXJSZYJJC7283-41-47 22:59:00 58.3[facility] AoompyqBVZEKINEJW1508-75-87 22:59:003.8[facility]annHEMATOLOGY 2015-02-16 22:59:000.4[facility] WeiwdjpDDJBZMKJXF9324-06-01 22:59:000.6[facility] XawqelrBLXTBKLBNL7269-59-38 22:59:001.9[facility] WxpitvbNIJYCZWUHC0108-10-05 22:59:000.2[facility] WdskczyNHMOMIAPWT0759-62-59 22:59:000.0[facility] SQLWTYCZJW9553-35-43 22:59:00 Test Item Value Reference Range Interpretation Comments PTT (test code = PTT) 36.0 s 22.9-35.8 [facility] RckgbzoKJWJQHZKQO8071-77-86 22:59:00 Test Item Value Reference Range Interpretation Comments PT (test code = PT) 12.9 s 12.0-14.7 [facility] TzcgaqlIWFJMUNWBD1937-68-99 22:59:000.97[facility]annHEMATOLOGY 2015-02-16 22:59:16935Wnbvwidy SpydaqaHGOUZQCRBT9343-02-02 22:59:0014.7[facility] MxpciqaIAYZOMFWVY0949-32-95 22:59:008.7[facility] ErnjcltVHUORBFPCQ3449-31-56 22:59:0032.6[facility] LvfxscyPNNZFONRDT5667-13-98 22:59:0039.5[facility] JHTDFRJUCR7901-58-66 22:59:0087.3[facility] FqojkegJEJHOACURF4071-49-30 22:59:00 Test Item Value Reference Range Interpretation Comments MCH (test code = MCH) 28.4 pg 27.0-31.0 [facility] HyogtqwPPBUBHDIRR5428-94-54 22:59:004.52[facility]annHEMATOLOGY 2015-02-16 22:59:0012.9[facility] ZqzbpkkDXQKKMSPSR2918-01-85 22:59:006.5[facility] CfxqtdmJMNWDYEUU4321-67-67 22:59:0046[facility] HermannCARDIAC YVAICKC1532-80-50 21:17:0015[facility]annCARDIAC YXKHLGC7965-31-65 21:17:00<0.02[facility]annCARDIAC JSSYIHL6349-65-18 21:17:0080[facility]annCARDIAC ENZYMES 2013-12-22 21:17:00<0.5[facility] HermannCARDIAC ZELAHNN2801-79-61 21:17:00 <0.6[facility]annCHEM TKOUU1108-18-27 21:17:16489Rsihzoqt HermannCHEM MFZVL1006-57-84 21:17:003.6[facility]annCHEM JAFIX6525-44-18 21:17:0017 [facility]annCHE[facility] FTNTD0321-19-69 21:17:001.1[facility]annCHEM PANEL 2013-12-22 21:17:65565Ndwkhrwr HermannCHEM ZKDDH5220-28-41 21:17:0034[facility]annCHEM LIQSG8225-32-77 21:17:003.9[facility]annCHEM XPIAU0463-66-55 21:17:0089[facility]annCHEM ZREVT6380-00-35 21:17:0022[facility]annCHEM NMLIA1817-47-66 21:17:000.6[facility]annCHEM IWBWY7689-16-52 21:17:005.5 [facility]annCHE[facility] WEOUC8151-02-82 21:17:000.6[facility]annCHEM PANEL 2013-12-22 21:17:0010[facility]annCHEM RBDUH1348-60-97 21:17:003.5[facility]annCHEM XAHDJ4089-51-09 21:17:41757Gmuwjldh HermannCHEM BZDGY7824-08-18 21:17:01273Taasecjr HermannCHEM KLFRI5120-56-66 21:17:0029[facility]annCHEM VDNRH0872-75-61 21:17:007.5[facility]annCHEM NNOEL2877-74-29 21:17:009.2 [facility]annDRUG NQZWZF5516-38-36 21:17:00Negative *NA*(12/22/13 4:17 PM) [facility] PCNWXH6545-62-70 21:17:00Negative *NA*(12/22/13 4:17 PM) [facility] KDHQOV3155-75-43 21:17:00See Note 4*NA*(12/22/13 4:17 PM) [facility] GXZRYT1180-67-87 21:17:00Negative *NA*(12/22/13 4:17 PM) [facility]DR[facility] PMQTLE1880-93-12 21:17:00Negative *NA*(12/22/13 4:17 PM) [facility]DR[facility] UICHYP3636-66-96 21:17:00Negative *NA*(12/22/13 4:17 PM) [facility]DR[facility] XMLGPG6730-08-92 21:17:00Negative *NA*(12/22/13 4:17 PM) [facility]DR[facility] XODWTZ6479-36-65 21:17:00Negative *NA*(12/22/13 4:17 PM) [facility] YglrhtzFCOIXPOFDD1000-36-91 21:17:00 Test Item Value Reference Range Interpretation Comments PTT (test code = PTT) 35.2 s 22.9-35.8 [facility] XoresdtFJTCHNNHZR6337-47-31 21:17:00 Test Item Value Reference Range Interpretation Comments PT (test code = PT) 12.2 s 12.0-14.7 [facility] IepfhnoTFTSQGCWAB0152-86-44 21:17:000.91[facility]annHEMATOLOGY 2013-12-22 21:17:008.4[facility] WbgczyyNVMAPYDWUO8620-21-03 21:17:00 Test Item Value Reference Range Interpretation Comments MCH (test code = MCH) 29.2 pg 27.0-31.0 [facility] PqqsggoXXEZOUQPZY2623-47-53 21:17:0033.4[facility]annHEMATOLOGY 2013-12-22 21:17:0014.5[facility] JbdlqxiCKRCHAYQJF5101-22-06 21:17:75513Wqmtozut HjfxsmaAPLWXCKESS0825-08-55 21:17:0041.6[facility] LfnalldIEKLQZEURG6615-03-17 21:17:0087.5[facility] ApybkuzCPETTCCBCY7194-19-57 21:17:004.76[facility] HEXXYLKSSS4298-88-04 21:17:0013.9[facility] McxcdvtOXRSPAZLZQ2873-35-62 21:17:00 8.5[facility] YlzkqkjIUHZKHBMFR3670-99-30 21:17:000.2[facility] HermannHEMATOLOGY 2013-12-22 21:17:000.0[facility] BvfrnruVAMTOHMHZG1423-70-46 21:17:0066.1[facility] TfodyokOLXTUTZDNJ4420-97-73 21:17:006.1[facility] GyzytaeIUGZWCUXGH3814-38-31 21:17:0025.0[facility] TtpaakuWFXKKZXFTC0910-06-17 21:17:002.4[facility] [place] GTZCFACFPN2632-93-28 21:17:000.4[facility] CqriyqjVJHNHJHAKM1833-43-57 21:17:002.1 [facility] TwlezwbLTRRDRACIE8176-58-80 21:17:000.5[facility]annHEMATOLOGY 2013-12-22 21:17:005.6[facility]annURINE AND SLIMP8744-07-30 21:17:00Trace *ABN*(12/22/13 4:17 PM)[facility] TIUAI7752-30-94 21:17:00Negative *NA*(12/22/13 4:17 PM)[facility] SRMNA7537-07-57 21:17:000.2 [facility] VTGQG2958-81-87 21:17:00Small *ABN*(12/22/13 4:17 PM) [facility] HUEXR0883-08-01 21:17:00Negative *NA*(12/22/13 4:17 PM) [facility] RHYSP8123-85-26 21:17:00Negative (12/22/13 4:17 PM) [facility] YYTCO7828-22-23 21:17:00Clear (12/22/13 4:17 PM) [facility] YYMZY5432-51-67 21:17:00Yellow *NA*(12/22/13 4:17 PM) [facility] ZALQQ5319-96-41 21:17:00 Test Item Value Reference Range Interpretation Comments UA pH (test code = UA pH) 6.0 1 5.0-8.0 [facility] WDLKZ3415-73-87 21:17:00 Test Item Value Reference Range Interpretation Comments UA Spec Grav (test code = UA Spec 1.015 1 Grav) [facility] RSEEH5698-59-68 21:17:00Negative (12/22/13 4:17 PM) [facility] UNRFX5787-71-62 21:17:00Negative (12/22/13 4:17 PM) [facility]annCHEM HMGNT3359-78-82 15:55:312.7[facility]annCHEM PANEL 2013-12-17 15:55:312.2[facility] DhaynwlBAIGMKZPJHFE4682-68-12 15:55:3110.5 [facility] SbuclcoRCRGCZGQGMCX7392-42-98 15:55:3191[facility] HermannELECTROLYTES 2013-12-17 15:55:3110[facility] PvuheihAQYVSDJIDXWO2545-74-04 15:55:310.8[facility] IrotuwuEALKTKKWLWQA8670-65-94 15:55:34635Zfiumesg KwhgtbaRCRLEAVWMPZM4250-62-06 15:55:3187[facility] AqhhrueLLDSVYNAEJGZ9893-18-29 15:55:3130[facility] SIACELCQUPMD4480-83-87 15:55:314.5[facility] XpyoxeaHMWEZBFGLHPZ5501-73-67 15:55:67536Audnsddy JnkyfobGCDMAMQMJRJG2592-72-78 15:55:318.6[facility] URBFPUAOGY3002-25-10 15:55:310.97[facility] LxyguniTQAQLAZTXQ1854-04-39 15:55:31 Test Item Value Reference Range Interpretation Comments PTT (test code = PTT) 32.4 s 22.9-35.8 [facility] DksyiwfGPIEAZONHO3872-87-10 15:55:31 Test Item Value Reference Range Interpretation Comments PT (test code = PT) 12.8 s 12.0-14.7 [facility] AexgydxUBHHRQIRRN0733-63-26 15:55:3113.7[facility]annHEMATOLOGY 2013-12-17 15:55:314.88[facility] XcadgjtKTYFBPMPYS6406-08-62 15:55:31 Test Item Value Reference Range Interpretation Comments MCH (test code = MCH) 28.1 pg 27.0-31.0 [facility] ZzammahXWWFSMJLFN6142-23-84 15:55:3142.1[facility]annHEMATOLOGY 2013-12-17 15:55:3186.4[facility] LupfbmyZIWUAKIIYB1112-41-09 15:55:3114.3[facility] VfgwzedXYQINKBGAU6804-60-30 15:55:3132.5[facility] XtfzektRFQMUJJENC8769-62-90 15:55:318.4[facility] OxmhznzOKTIDOROZA3754-13-05 15:55:00661Lbdakjkp Maciej VWKEYDPIBY6467-89-31 15:55:317.2[facility] VzyowhkSZVSHYEAXP9621-66-16 15:55:31 10.7[facility] HnodxicRXHGUKNZTO2664-57-28 15:55:3127.2[facility]annHEMATOLOGY 2013-12-17 15:55:311.9[facility] XoryujwTNOQBOHUJK9453-61-80 15:55:313.2[facility] DjscatpMFWHBCNJOU8270-72-83 15:55:310.6[facility] CrksbfpMADAPBRXFB3445-05-59 15:55:314.2[facility] GalfsyrRVHVSUYADA0942-29-91 15:55:310.2[facility] OUQXZCKBGJ6990-32-19 15:55:310.8[facility] LteklwaFWXKZZEGCZ1410-23-34 15:55:31 58.3[facility] HermannPARATHYROID FOFVQIO8189-49-85 15:55:191.11[facility] PARATHYROID EMNQSKT1860-24-18 15:55:191.17[facility] HermannDRUG UTRHBU9633-23-82 03:45:57Negative *NA*(12/16/13 10:45 PM)[facility]annDR[facility] JEOBKE2904-81-87 03:45:57Positive *ABN*(12/16/13 10:45 PM)[facility] VXHYFR5937-21-51 03:45:57Negative *NA*(12/16/13 10:45 PM)[facility] BRSXSP2445-43-84 03:45:57Negative *NA*(12/16/13 10:45 PM)[facility]annDR[facility] LOVELO5003-83-65 03:45:57Negative *NA*(12/16/13 10:45 PM)[facility]annDR[facility] FLRSWE2050-01-26 03:45:57See Note 6(12/16/13 10:45 PM)[facility]annDR[facility] XDLXWP4026-07-58 03:45:57Negative *NA*(12/16/13 10:45 PM)[facility]annDR[facility] YVXDBZ3658-75-82 03:45:57Negative *NA*(12/16/13 10:45 PM)[facility]annCARDIAC XKNVFJB8586-94-54 03:45:0056[facility]annCARDIAC RDTFBMZ5486-51-41 03:45:00<0.010[facility]annCARDIAC QSFGYGW9506-83-94 03:45:00<0.02[facility]annCARDIAC ENZYMES 2013-12-17 03:45:0013[facility] XybgjyzAATIIU2337-79-75 03:45:0018[facility] GVMBAP9058-69-91 03:45:0088[facility] FulxptsFMEBVP2997-79-60 03:45:0088[facility] HruwdsvTPDCFU7281-03-40 03:45:003.08[facility] UtynxgdIELEGQ0183-44-78 03:45:97740 [facility] BautxszSSVTIF3766-04-75 03:45:0051[facility] HermannSPECIAL CHEMISTRY 2013-12-17 03:45:005.3[facility] HermannTHYROID MBZTW9241-28-20 03:45:000.870 [facility]annCARDIAC HVFBGUX4437-99-74 22:09:0042[facility]annCARDIAC AQWCQPH4394-45-72 22:09:00<0.02[facility] HermannCHEM RQSRG1217-70-57 19:30:00 1.3[facility] XmzgbhsXVYVFWICBH7846-88-10 19:30:00 Test Item Value Reference Range Interpretation Comments PT (test code = PT) 11.8 s 12.0-14.7 [facility] UfihtetFQUVNILUUM3769-14-57 19:30:000.87[facility]annHEMATOLOGY 2013-12-16 19:30:00 Test Item Value Reference Range Interpretation Comments PTT (test code = PTT) 31.2 s 22.9-35.8 [facility] KcuevgxVCFHHQOGLC6802-50-17 19:30:004.69[facility]annHEMATOLOGY 2013-12-16 19:30:006.6[facility] PwzrmckADFKJEECVH3428-06-14 19:30:0040.5[facility] TubfafeFPAAVLQVTF9080-49-02 19:30:0086.4[facility] OhhvqnxTRWKUKQSBU1540-24-65 19:30:0013.6[facility] QysqlbyIKDSZTVCKA9993-30-05 19:30:00 Test Item Value Reference Range Interpretation Comments MCH (test code = MCH) 29.0 pg 27.0-31.0 [facility] BzmskopRXKXCWZAQN6760-21-61 19:30:0033.6[facility]annHEMATOLOGY 2013-12-16 19:30:99757Tvmtbzus RowpetlOYXYEAEKYQ2228-56-54 19:30:0013.4[facility] OuqqjidENOLECOXNG2140-50-76 19:30:008.6[facility] AamwadcTBFCQGZJBH9634-02-36 19:30:000.8[facility] NugpjpdHEPVXUJUIP5305-22-35 19:30:000.0[facility] CLNHBLDXHG3521-21-31 19:30:0012.1[facility] PfbsbgpTAGHLJWIND9596-29-01 19:30:00 3.8[facility] CucxhxhUAGMNFTPFF5630-04-41 19:30:000.6[facility]annHEMATOLOGY 2013-12-16 19:30:003.9[facility] BcxgijfWOPQMBXRTR4260-00-50 19:30:000.3[facility] StbwdgeBTQDXZZDWY7893-56-73 19:30:001.6[facility] CspdjgaUDSFHEDZWB2689-23-17 19:30:0025.0[facility] OrjchpeCETHMHBQFL2827-71-00 19:30:0058.5[facility] CHEM UHLHE3464-71-77 17:43:2479[facility] HermannCHEM UTKHL4999-80-13 17:43:240.9 [facility] HermannCHEM YNQEO3918-80-86 17:43:35155Kdxgebxn HermannCHEM PANEL 2013-12-16 17:43:244.5[facility] HermannCHEM NSYTN1678-58-65 17:43:49950Hcxhitoc HermannCHEM UWQRL3596-61-50 17:43:2478[facility] HermannCHEM FDRCC4053-41-37 17:43:2411[facility] HermannCHEM OUAIQ3680-24-58 17:43:241.0[facility] HermannCHEM KZIVH0043-97-58 17:43:2412[facility] HermannCHEM GTTMB9861-63-75 17:43:243.6 [facility] HermannCHEM YAMOL3220-99-78 17:43:2416.5[facility] HermannCHEM PANEL 2013-12-16 17:43:247.2[facility] HermannCHEM WOPKM3424-40-74 17:43:2419[facility] HermannCHEM JCLRS5975-98-70 17:43:2423[facility] HermannCHEM ADXJC1071-89-85 17:43:249.2[facility] HermannCHEM GKOFU9293-15-66 17:43:240.3[facility] HermannCHEM RURJG8947-30-09 17:43:243.6[facility] HermannCHEM BWEDQ2217-05-47 17:43:2487 [facility] HermannCHEM WLHWK4628-40-92 17:43:2431[facility] HermannCARDIAC ENZYMES 2013-12-16 17:43:0056[facility] HermannCARDIAC EMSFZIU5167-56-30 17:43:00<0.02 [facility]annCARDIAC ONECNJG0512-75-85 19:12:00<0.02[facility] CARDIAC VUFNRRR9283-60-86 19:12:0049[facility] HermannCARDIAC OWMRHZC1961-83-57 19:12:00<0.010[facility] MveeaclFDPJKTWGC1655-89-71 19:12:0036[facility] CARDIAC EIZLUWS6361-80-51 12:35:00<0.010[facility] HermannCARDIAC ENZYMES 2013-11-08 12:35:0054[facility] HermannCARDIAC VAGKUVZ2701-20-89 12:35:00<0.02 [facility]annCARDIAC HVWKHRD5676-00-02 08:36:00<0.02[facility] JGGLDDSKDUWT4664-50-78 08:36:0011.4[facility] CuzuiktXYSHDAOVAEKT4494-37-21 08:36:0069[facility] MifoltmJOSWSXLRVHKN5028-45-84 08:36:009.2[facility] MYGSPYGNPJSD4938-34-89 08:36:0027[facility] KpvoifaQEIVNMGQGSXP9943-63-21 08:36:00 105[facility] ReimrngVEISMTDCGCQY3015-56-34 08:36:003.4[facility] YHSYTIDCCZCK4461-35-55 08:36:83637Nqhxqrzz IpsmtamXPYJVNNWVBHZ4475-59-06 08:36:0011[facility] IciqnqdGHUDGXXCEMFK5978-28-82 08:36:0084[facility] LLOTYFQUXKAB0131-87-69 08:36:001.0[facility] TsiveicVPCXBHTTSH7960-99-33 08:36:00 0.1[facility] MajaotoGOBGAROGDM3346-34-25 08:36:000.2[facility] HermannHEMATOLOGY 2013-11-08 08:36:000.8[facility] ZwqjgyfFMRJSGIRJC9563-16-20 08:36:0072.5[facility] GyabkjtBIRYAVMGRY5956-97-00 08:36:0017.0[facility] MtybmpvZJHTUVQPWU1532-93-93 08:36:002.1[facility] IzxphfaFHLYPIOUGI6908-93-51 08:36:007.8[facility] RFERJKAEID5209-53-70 08:36:007.6[facility] NoyetirUIIKDKNUEE8839-68-48 08:36:000.6 [facility] GpdrhzxJZLKNKYSIZ8829-51-23 08:36:001.8[facility] HermannHEMATOLOGY 2013-11-08 08:36:008.7[facility] BrdwxnfXGKNCYNVDV7434-17-43 08:36:0014.0[facility] PoxccjeLXENXZQENI5888-55-93 08:36:22237Cdppochl XnjxbcaMWZSVNSTDS7417-87-19 08:36:0033.9[facility] JueiprvZYXXSCDFOM5910-36-45 08:36:004.65[facility] MGUEBGYAFC1247-87-41 08:36:0010.6[facility] YdazycaDFDJQGSYJM3865-77-54 08:36:00 Test Item Value Reference Range Interpretation Comments MCH (test code = MCH) 29.3 pg 27.0-31.0 [facility] GyqbuhdPEBAMPVAWG9397-03-19 08:36:0086.6[facility] HermannHEMATOLOGY 2013-11-08 08:36:0013.6[facility] EyxpqdzPVUWDDQZCI9964-02-56 08:36:0040.2[facility]
[2021-01-06 14:12] LABS: Absolute Lymphocytes (CBC) 1.8 K/uL (0.7-4.9); Basophils % 1.3 % (0-1.3); Hematocrit 43.9 % (36.0-45.0); Lymphocytes % 28.3 % (15.3-44.8); MPV 8.6 fL (7.6-11.3); RBC Red Blood Cell Count 5.05 M/uL (3.86-4.86)
[2021-01-06 14:23] LABS: BUN Blood Urea Nitrogen 7 mg/dL (7-18); Bicarbonate 27 mmol/L (21-32); Glucose Level 147 mg/dL (74-106); Potassium 3.9 mmol/L (3.5-5.1); Sodium Level 143 mmol/L (136-145)
--- NOTE | 2021-01-06 15:28 | RAD REPORT ---
EXAM DESCRIPTION: RAD - Chest Single View - 01/06/2021 2:54 pm CLINICAL HISTORY: BLUNT CHEST TRAUMA, fall with persistent right-sided pain COMPARISON: Portable December 15 TECHNIQUE: AP portable chest image was obtained 01/06/2021 2:54 pm . FINDINGS: No acute lung parenchymal pattern. Prominent interstitial pattern matches comparison. Hear t and vasculature are normal. No measurable pleural effusion and no pneumothorax. No acute bony abnor mality seen. No acute aortic findings suspected. Aortic atherosclerotic calcifications are present. IMPRESSION: No acute cardiopulmonary process. Chest findings are similar to comparison.
--- NOTE | 2021-01-06 15:29 | RAD REPORT ---
EXAM DESCRIPTION: Ribs Right - 01/06/2021 2:54 pm CLINICAL HISTORY: PAINfall with right-sided rib pain COMPARISON: Chest Single View dated 01/06/2021 FINDINGS: No displaced rib fracture is evident. No non-displaced rib fracture suspected. No aggressive rib lesion. No underlying pneumothorax, effusion, infiltrate or pulmonary contusion. Extensive lower lumbar surgical changes are present incompletely evaluated on this study. IMPRESSION: Negative right rib series.
--- NOTE | 2021-01-06 15:32 | RAD REPORT ---
EXAM DESCRIPTION: RAD - Pelvis - 01/06/2021 2:55 pm CLINICAL HISTORY: BLUNT TRAUMA, fall with pelvis and hip pain COMPARISON: Abdomen Pelvis W Contrast dated 12/29/2020 TECHNIQUE: AP imaging of the pelvis was obtained. FINDINGS: No fracture of the bony pelvis. Assessment of the sacral ala limited on this examination d ue to lumbosacral surgical change and overlying bowel content. Mild SI joint degenerative changes are present. Patient has severe bilateral hip joint degenerative change. There is flattening of the superior conto ur each femoral head with large subcortical degenerative cysts. Joint spaces are effaced with subcort ical cystic changes at each acetabulum. No femoral neck or intertrochanteric fracture seen. Acute hip joint findings are not confirmed. Pattern is not substantially different from short interval December [address] CT findings. IMPRESSION: No acute pelvic fracture seen. Sacral ala assessment is limited. Severe bilateral hip joint degenerative change not clearly different from recent December 29 CT study.
--- NOTE | 2021-01-06 15:33 | RAD REPORT ---
EXAM DESCRIPTION: RAD - Femur Right - 01/06/2021 2:55 pm CLINICAL HISTORY: PAIN, fall COMPARISON: No comparisons FINDINGS: No fracture, dislocation or periosteal reaction noted. Severe hip joint degenerative aviles es are present. Joint space is effaced. Superior contour the femoral head is flattened and there are significant subcortical degenerative cystic changes of the acetabulum and femoral head. No air or foreign body in the soft tissues. Arterial tree calcifications are present. IMPRESSION: Severe right hip joint degenerative change. No fracture or acute finding seen.
--- NOTE | 2021-01-06 15:46 | ER ---
Nurse's Notes [facility] Name: Winsome Yepez Age: 70 yrs Sex: Female : 1950 Arrival Date: 01/06/2021 Time: 13:11 Bed 8 Private MD: Diagnosis: Contusion of right hip;Cough Presentation: 01/06 13:28 Chief complaint: Patient states: PT C/O R HIP PAIN 2 DAYS S/P FALL. Coronavirus screen: bp At this time, the client does not indicate any symptoms associated with coronavirus-19. Ebola Screen: No symptoms or risks identified at this time. Initial Sepsis Screen: Does the patient meet any 2 criteria? No. Patient's initial sepsis screen is negative. Does the patient have a suspected source of infection? No. Patient's initial sepsis screen is negative. Risk Assessment: Do you want to hurt yourself or someone else? Patient reports no desire to harm self or others. Onset of symptoms is unknown. 13:28 Acuity: CYNTHIA 4 bp 13:30 Method Of Arrival: EMS bp Triage Assessment: 13:30 General: Appears in no apparent distress. comfortable, Behavior is cooperative, bp appropriate for age, anxious. Pain: Complains of pain in right hip. EENT: No deficits noted. Neuro: No deficits noted. Cardiovascular: No deficits noted. Respiratory: No deficits noted. GI: No signs and/or symptoms were reported involving the gastrointestinal system. : No signs and/or symptoms were reported regarding the genitourinary system. Derm: No deficits noted. Musculoskeletal: No deficits noted. Historical: - Allergies: 13:30 PENICILLINS; bp - Home Meds: 13:30 Unable to obtain [Active]; bp - PMHx: 13:30 Asthma; High Cholesterol; Hypertension; Myocardial infarction; Sickle Cell; bp - Immunization history:: Adult Immunizations unknown. - Social history:: Smoking status: unknown. - Family history:: not pertinent. - Hospitalizations: : No recent hospitalization is reported. Screenin:31 Abuse screen: Denies threats or abuse. Denies injuries from another. Nutritional bp screening: No deficits noted. Tuberculosis screening: No symptoms or risk factors identified. Fall Risk None identified. Assessment: 13:31 General: SEE TRIAGE NOTE. bp 15:00 Reassessment: Patient appears in no apparent distress at this time. Patient and/or bp family updated on plan of care and expected duration. Pain level reassessed. Patient is alert, oriented x 3, equal unlabored respirations, skin warm/dry/pink. PT RETURNED FROM XRAY. 17:00 Reassessment: PT ATTEMPTING TO CONTACT FAMILY AND FRIENDS FOR TRANSPORT HOME. D/C ON bp HOLD FOR TRANSPORT. 18:00 Reassessment: CAB VOU[employer]ER BEING ARRANGED FOR PT TRANSPORT. PT D/C HOME VIA TAXI, DX bp WITH CONTUSION. Vital Signs: 13:28 BP 129 / 96; Pulse 80; Resp 16; Pulse Ox 97% ; bp 15:00 BP 165 / 52; Pulse 82; Resp 16; Pulse Ox 97% ; bp 16:00 BP 102 / 77; Pulse 79; Resp 18; Pulse Ox 92% ; bp 17:00 BP 90 / 77; Pulse 86; Resp 16; Pulse Ox 96% ; bp 18:00 BP 90 / 60; Pulse 84; Resp 17; Temp 98; Pulse Ox 96% ; bp ED Course: 13:11 Patient arrived in ED. rn 13:12 Julio Garcia MD is Attending Physician. rn 13:28 Fox Jones, AZAM is Primary Nurse. bp 13:29 Triage completed. bp 13:30 Arm band placed on. bp 13:31 Patient has correct armband on for positive identification. Bed in low position. Call bp light in reach. Side rails up X2. 13:59 Basic Metabolic Panel Sent. mh5 13:59 CBC with Automated Diff Sent. mh5 13:59 Basic Metabolic Panel Sent. mh5 13:59 CBC with Diff Sent. mh5 13:59 Initial lab(s) drawn, by mn, sent to lab. Inserted saline lock: 22 gauge in left mh5 forearm, using aseptic technique. Blood collected. 14:00 Warm blanket given. Pulse ox on. NIBP on. mh5 14:54 XRAY Chest (1 view) In Process Unspecified. EDMS 14:54 XRAY Ribs RIGHT In Process Unspecified. EDMS 14:54 XRAY Pelvis In Process Unspecified. EDMS 14:54 XRAY Femur RIGHT In Process Unspecified. EDMS 18:03 No provider procedures requiring assistance completed. IV discontinued, intact, bp bleeding controlled, No redness/swelling at site. Pressure dressing applied. Administered Medications: 17:00 Drug: [place] (HYDROcodone-acetaminophen) 10 mg-325 mg 1 tabs Route: PO; bp 18:04 Follow up: Response: No adverse reaction; Pain is decreased bp Outcome: 15:46 Discharge ordered by . rn 18:03 Discharged to home VIA TAXI bp 18:03 Condition: stable 18:03 Discharge instructions given to patient, Instructed on discharge instructions, follow up and referral plans. Demonstrated understanding of instructions, follow-up care. 18:04 Patient left the ED. bp Signatures: Dispatcher [employer] EDJulio Alas MD MD rn Martinez, [facility] Fox Jones RN RN bp
--- NOTE | 2021-01-06 15:46 | EDPHYS ---
Physician Documentation [facility] Name: Winsome Yepez Age: 70 yrs Sex: Female : 1950 Arrival Date: 01/06/2021 Time: 13:11 Bed 8 Private MD: ED Physician Julio Garcia HPI: 01/06 14:01 This 70 yrs old Black Female presents to ER via Unassigned with complaints of fall. rn 14:01 The patient or guardian reports an injury, pain. that occurred at home, sustained from rn a fall, There is no obvious deformity, The patient is able to ambulate with assistance. The patient is able to bear partial body weight. The complaints affect the right hip and right chest. Onset: The symptoms/episode began/occurred 2 day(s) ago. Modifying factors: The symptoms are alleviated by nothing, the symptoms are aggravated by weight bearing. Associated signs and symptoms: Pertinent negatives: abdominal pain, fever, incontinence, vomiting, weakness. Severity of symptoms: At their worst the symptoms were moderate, in the emergency department the symptoms are unchanged. The patient has experienced similar episodes in the past. The patient has not recently seen a physician. Reports fall from standing 2 days ago at home, hit floor, remembers events, reports hit right hip and has been having pain with movement and walking since fall. Also noticed slight cough with small amount of blood in cough, but states that has been happening "for years". No fever. + chronic back pain. . Historical: - Allergies: 13:30 PENICILLINS; bp - Home Meds: 13:30 Unable to obtain [Active]; bp - PMHx: 13:30 Asthma; High Cholesterol; Hypertension; Myocardial infarction; Sickle Cell; bp - Immunization history:: Adult Immunizations unknown. - Social history:: Smoking status: unknown. - Family history:: not pertinent. - Hospitalizations: : No recent hospitalization is reported. ROS: 14:01 Constitutional: Negative for fever, chills, and weight loss, Eyes: Negative for injury, rn pain, redness, and discharge, Neck: Negative for injury, pain, and swelling, Cardiovascular: Negative for palpitations, and edema, Respiratory: Negative for shortness of breath, wheezing, and pleuritic chest pain, Abdomen/GI: Negative for abdominal pain, nausea, vomiting, diarrhea, and constipation, Back: + chronic back pain : Negative for injury, bleeding, discharge, and swelling, MS/Extremity: + right hip pain Skin: Negative for injury, rash, and discoloration, Neuro: Negative for headache, weakness, numbness, tingling, and seizure. Exam: 14:01 Constitutional: This is a well developed, well nourished patient who is awake, alert, rn and in no acute distress. Head/Face: Normocephalic, atraumatic. ENT: MMM Neck: Trachea midline, no masses palpated, and no cervical lymphadenopathy. Supple, full range of motion without nuchal rigidity, or vertebral point tenderness. No Meningismus. Chest/axilla: Normal chest wall appearance and motion. Nontender with no deformity. No lesions are appreciated. Cardiovascular: Regular rate and rhythm. No pulse deficits. Respiratory: No increased work of breathing, no retractions or nasal flaring. Abdomen/GI: Soft, non-tender Skin: Warm, dry MS/ Extremity: Pulses equal, no cyanosis. Neurovascular intact. Mild painful ROM right hip. Neuro: Awake and alert, GCS 15, oriented to person, place, time, and situation. Cranial nerves II-XII grossly intact. Motor strength 5/5 in all extremities. Sensory grossly intact. Vital Signs: 13:28 BP 129 / 96; Pulse 80; Resp 16; Pulse Ox 97% ; bp 15:00 BP 165 / 52; Pulse 82; Resp 16; Pulse Ox 97% ; bp 16:00 BP 102 / 77; Pulse 79; Resp 18; Pulse Ox 92% ; bp 17:00 BP 90 / 77; Pulse 86; Resp 16; Pulse Ox 96% ; bp 18:00 BP 90 / 60; Pulse 84; Resp 17; Temp 98; Pulse Ox 96% ; bp MDM: 13:12 Patient medically screened. rn 15:44 Differential diagnosis: hip fracture, intertrochanteric fracture, strain. Data rn reviewed: vital signs, nurses notes, radiologic studies, plain films, and as a result, I will discharge patient. Counseling: I had a detailed discussion with the patient and/or guardian regarding: the historical points, exam findings, and any diagnostic results supporting the discharge/admit diagnosis, lab results, radiology results, the need for outpatient follow up, to return to the emergency department if symptoms worsen or persist or if there are any questions or concerns that arise at home. Response to treatment: the patient's symptoms have mildly improved after treatment, and as a result, I will discharge patient. Special discussion: I discussed with the patient/guardian in detail that at this point there is no indication for admission to the hospital. It is understood, however, that if the symptoms persist or worsen the patient needs to return immediately for re-evaluation. ED course: NO acute findings on imaging, stable h/h and BMP, will dc home with prn anti-inflammatories. . 01/06 13:13 Order name: CBC with Diff rn 01/06 13:13 Order name: Basic Metabolic Panel rn 01/06 13:13 Order name: XRAY Chest (1 view); Complete Time: 15:39 rn 01/06 13:13 Order name: XRAY Ribs RIGHT; Complete Time: 15:39 rn 01/06 13:13 Order name: CBC with Automated Diff; Complete Time: 14:18 EDPR 01/06 13:14 Order name: Basic Metabolic Panel; Complete Time: 15:39 [facility] 01/06 13:13 Order name: IV Start; Complete Time: 13:59 rn 01/06 13:13 Order name: XRAY Pelvis; Complete Time: 15:39 rn 01/06 13:13 Order name: XRAY Femur RIGHT; Complete Time: 15:39 rn Administered Medications: 17:00 Drug: [place] (HYDROcodone-acetaminophen) 10 mg-325 mg 1 tabs Route: PO; bp 18:04 Follow up: Response: No adverse reaction; Pain is decreased bp Disposition: 01/06/21 15:46 Discharged to Home. Impression: Contusion of right hip, Cough. - Condition is Stable. - Discharge Instructions: Contusion, Rib Contusion, Cough, Adult. - Medication Reconciliation Form, Thank You Letter, Antibiotic Education, Prescription Opioid Use form. - Follow up: Private Physician; When: As needed; Reason: Recheck today's complaints, Re-evaluation by your physician. - Problem is new. - Symptoms have improved. Signatures: Dispatcher [employer] EDJulio Alas MD MD rn Peltier, Brian, RN RN bp Corrections: (The following items were deleted from the chart) 18:04 15:46 01/06/2021 15:46 Discharged to Home. Impression: Contusion of right hip; Cough. bp Condition is Stable. Forms are Medication Reconciliation Form, Thank You Letter, Antibiotic Education, Prescription Opioid Use. Follow up: Private Physician; When: As needed; Reason: Recheck today's complaints, Re-evaluation by your physician. Problem is new. Symptoms have improved. rn
[2021-01-06] MEDS ORDERED: HYDROCODONE/APAP 5/325 MG TAB ONE (18:00)
[2021-01-06 18:40] VITALS: O2SAT 96
[2021-01-06 18:41] VITALS: BP 90/60; TEMP 98
== END 2021-01-06 18:04 | disposition home or self-care (01) ==
LOC: ER 13:05
DX: S70.01XA Contusion of right hip, initial encounter (principal); R05 Cough; W18.30XA Fall on same level, unspecified, initial encounter; Y92.009 Unspecified place in unspecified non-institutional (private) residence as the place of occurrence of the external cause; I10 Essential (primary) hypertension; Z88.0 Allergy status to penicillin
CPT/HCPCS: 36415; 71045; 72170; 80048; 85025; 99284

== ENCOUNTER 2021-01-21 13:30 | Emergency (ER) | payer OTHER ==
--- OUTSIDE RECORDS SUMMARY | 2021-01-21 13:45 | XMS REPORT | Continuity of Care Document ---
:1950 Author Organization [facility] t Address [address] [place] [address] Care Team Providers Name Role Phone UNKNOWN [...] 2017-01-16 Memoria 5-21 20:56:00 l CHEST 00:00: [place] PAIN 00 [facility] Active 2016-11-28 Mem oria 4-02 20:00:00 l PAIN 00:00: Maciej 00 [facility] Active 2016-11-06 Mem oria SWELLING 3-11 18:35:00 l FACIAL 00:00: Maciej SWELLING 00 Active 11/06/2016 [facility] SYNCOPE Diagnosis Active 2017-02-18 Me moria 2-12 10:16:00 l SYNCOPE 00:00: Maciej 00 Active 10/10/2016 [facility] SICK Diagnosis Active 2017-0 2016-10-10 Mem oria 2-12 20:58:00 l SICK 00:00: [place] 00 Active 10/10/2016 [facility] CHEST Diagnosis Active 2016-03-12 Mem oria PAIN, 7-14 12:26:00 l HYPOTENSIO CHEST 00:00: Caroline nn N PAIN, 00 HYPOTENSIO N Active 03/11/2016 [facility] SOB Diagnosis Active 2016-03-11 Mem oria 7-14 15:11:00 l SOB 00:00: Maciej 00 Active 03/11/2016 [facility] BACK PAIN Diagnosis Active 2016-10-12 Memoria 1-17 14:26:00 l BACK 00:00: [place] PAIN 00 Active 09/14/2015 [facility] COPD, Diagnosis Active 2015-09-05 Mem oria CHEST PAIN 09-03 15:21:00 l COPD, 00:00: Maciej CHEST PAIN 00 Active 09/03/2015 [facility] HEADACHE Diagnosis Active 2014-082015-07-15 M emoria 09-14 17:17:00 l HEADACHE 00:00: Kristopher n 00 Active 07/15/2015 [facility] SOB/ Diagnosis Active 2014-082015-07-05 Mem oria WEAKNESS 09-03 01:33:00 l SOB/ 22:00: Maciej WEAKNESS 00 Active 07/04/2015 [facility] LOWER BACK Diagnosis Active 2014-082015-07-11 Memoria AND LEG 1 13:07:00 l PAIN LOWER 00:00: [place] BACK AND 00 LEG PAIN Active 07/04/2015 [facility] SHORTNESS Diagnosis Active 2014-082015-06-04 Memoria OF BREATH 0-06 01:54:00 l 19:00: [place] SHORTNESS 00 OF BREATH Active 06/03/2015 [facility] NAUSEA Diagnosis Active 2015-05-20 Mem oria 05-18 07:49:00 l NAUSEA 00:00: Maciej 00 Active 05/18/2015 [facility] FALL Diagnosis Active 2015-05-02 Mem oria 05-02 16:55:00 l FALL 00:00: Maciej 00 Active 05/02/2015 [facility] NECK AND Diagnosis Active 2015-03-30 M emoria SHOULDER 03-30 16:35:00 l PAIN NECK AND 00:00: Kristopher n SHOULDER 00 PAIN Active 03/30/2015 [facility] SOB/CHEST Diagnosis Active 2015-03-21 Memoria PAIN 03-21 15:46:00 l 00:00: [place] SOB/CHEST 00 PAIN Active 03/21/2015 [facility] HYPOTENSIO Diagnosis Active 2015-03-31 Memoria N, CHEST 03-21 11:41:00 l PAIN 00:00: Maciej HYPOTENSIO 00 N, CHEST PAIN Active 03/21/2015 [facility] LOWER BACK Diagnosis Active 2015-03-11 Memoria PAIN 03-11 15:56:00 l LOWER 00:00: Maciej BACK PAIN 00 Active 03/11/2015 [facility] UPPER BACK Diagnosis Active 2015-02-24 Memoria PAIN 02-24 15:44:00 l UPPER 00:00: [place] BACK PAIN 00 Active 02/24/2015 [facility] ACUTE Diagnosis Active 2015-02-26 Mem oria CHEST PAIN 02-24 09:02:00 l ACUTE 00:00: Maciej CHEST PAIN 00 Active 02/24/2015 [facility] UNSTABLE Diagnosis Active 2015-02-19 M emoria ANGINA; 02-16 13:44:00 l HYPOTENSIO UNSTABLE 00:00: He rmann N ANGINA; 00 HYPOTENSIO N Active 02/16/2015 [facility] CHEST/LEG Diagnosis Active 2013-12-22 Memoria PAIN 12-22 18:23:00 l 00:00: [place] CHEST/LEG 00 PAIN Active 12/22/2013 [facility] OTHER Diagnosis Active 2013-12-16 Mem oria 4-20 20:50:00 l OTHER 00:00: Maciej 00 Active 12/16/2013 [facility] ACS Diagnosis Active 2013-12-18 Mem oria 4- 15:44:00 l ACS 00:00: [place] 00 Active 12/16/2013 [facility] Stented Problem Resolve 2017-01-22 Mem oria coronary d 04:26:21 l artery Stented [place] (finding) coronary artery (finding) Resolved Problem 01/22/2017 [facility], Jacek Solo [facility] Asthma Problem Active 2017-01-22 Memor ia (disorder) 04:26:21 l Asthma [place] (disorder) Active Problem 01/22/2017 [facility], [facility] Cardiac Problem Active 2017-01-22 Eleazar hilton chest pain 04:26:21 l (finding) Cardiac Herm sho chest pain (finding) Active Problem 01/22/2017 [facility], [facility] Hypertensi Problem Active 2017-01-22 M emoria ve 04:26:21 l disorder, [place] systemic Hypertensi arterial ve (disorder) disorder, systemic arterial (disorder) Active Problem 01/22/2017 [facility], [facility] Hyperlipid Problem Active 2017-01-22 M emoria emia 04:26:21 l (disorder) Kristopher n Hyperlipid emia (disorder) Active Problem 01/22/2017 [facility], [facility] Myocardial Problem Active 2017-01-22 M emoria infarction 04:26:21 l (disorder) Kristopher n Myocardial infarction (disorder) Active Problem 01/22/2017 [facility], [facility] Smoking Problem Active 2017-01-22 Eleazar hilton cessation 04:26:21 l advice Smoking [place] (regime/th cessation erapy) advice (regime/th erapy) Active Problem 01/22/2017 [facility], [facility] Substance Problem Active 2017-01-22 Me moria abuse 04:26:21 l (disorder) Kristopher n Substance abuse (disorder) Active Problem 01/22/2017 [facility] Tissue Problem Active 2017-01-22 Memor ia perfusion 04:26:21 l measure Tissue Maciej (observabl perfusion e entity) measure (observabl e entity) Active Problem 01/22/2017 [facility], [facility] Heart Problem Active 2013-12-28 Memor ia disease 01:02:24 l (disorder) Heart Caroline nn disease (disorder) Active Problem 12/28/2013 [facility] INTERMED Diagnosis Active 2013-12-18 M emoria CORONARY 15:44:00 l SYND INTERMED Kristopher n CORONARY SYND Active [facility] ANGINA Diagnosis Active 2015-02-19 Mem oria DECUBITUS 13:44:00 l ANGINA [place] DECUBITUS Active [facility] HYPOTENSIO Diagnosis Active 2015-03-31 Memoria N NOS 11:41:00 l Maciej HYPOTENSIO N NOS Active [facility] SYNCOPE Diagnosis Active 2017-02-18 Me moria AND 10:16:00 l COLLAPSE SYNCOPE Caroline nn AND COLLAPSE Active [facility] History of Past Illness Condition Condition Condition Status Onset Resolution Last Treating Co mments Source Name Details Category Date Date Treatment Clinician Date Chest Problem 2017-01-19 2017-01-19 M emoria pain, 01-16 00:39:08 00:39:08 l unspecifie Chest 05:00: Caroline nn d pain, 00 unspecifie d 01/16/2017 01/19/2017 [facility] Urinary Problem 2016-12-01 2016-12-01 Memoria tract 4- 00:38:41 00:38:41 l infection, Urinary 05:00: Her farooq site not tract 00 specified infection, site not specified 11/28/2016 12/01/2016 [facility] Dorsalgia, Problem 2016-12-01 2016-12-01 Memoria unspecifie 4- 00:38:41 00:38:41 l d 05:00: [place] Dorsalgia, 00 unspecifie d 11/28/2016 12/01/2016 [facility] Bitten or Problem 2016-11-09 2016-11-09 Memoria stung by 3-11 03:02:23 03:02:23 l nonvenomou Bitten 06:00: Herm sho s insect or stung 00 and other by nonvenomou nonvenomou s s insect arthropods and other , initial nonvenomou encounter s arthropods , initial encounter 11/06/2016 11/09/2016 [facility] Discharge Problem 2016-04-17 2016-04-17 Memoria Diagnosis: 04-14 03:14:09 03:14:09 l Syncope, 05:00: [place] near Discharge 00 Diagnosis: Syncope, near 04/14/2016 04/17/2016 [facility] Discharge Problem 2016-03-08 2016-03-08 Memoria Diagnosis: 03-05 04:59:23 04:59:23 l Trichomona 05:00: Kristopher n s Discharge 00 vaginitis Diagnosis: Trichomona s vaginitis 03/05/2016 03/08/2016 [facility] Discharge Problem 2015-2016-03-08 2016-03-08 Memoria Diagnosis: 03-05 04:59:23 04:59:23 l Lumbago 05:00: Maciej Discharge 00 Diagnosis: Lumbago 03/05/2016 03/08/2016 [facility] Discharge Problem 2015-2016-03-03 2016-03-03 Memoria Diagnosis: 02-28 00:43:25 00:43:25 l Bronchitis 05:00: Kristopher n Discharge 00 Diagnosis: Bronchitis 02/29/2016 03/03/2016 [facility] Discharge Problem 2015-05-21 2015-05-21 Memoria Diagnosis: 05-18 01:04:08 01:04:08 l Abdominal 05:00: Mcaiej pain, Discharge 00 acute, Diagnosis: epigastric Abdominal pain, acute, epigastric 05/18/2015 05/21/2015 [facility] Discharge Problem 2015-05-12 2015-05-12 Memoria Diagnosis: 05-09 07:40:44 07:40:44 l Chest pain 05:00: Kristopher n Discharge 00 Diagnosis: Chest pain 05/09/2015 05/12/2015 [facility] Discharge Problem 2015-05-05 2015-05-05 Memoria Diagnosis: 05-02 10:45:36 10:45:36 l Vertigo 05:00: [place] Discharge 00 Diagnosis: Vertigo 05/02/2015 05/05/2015 [facility] Discharge Problem 2015-05-05 2015-05-05 Memoria Diagnosis: 05-02 10:45:36 10:45:36 l Syncope 05:00: [place] and Discharge 00 collapse Diagnosis: Syncope and collapse 5 05/05/2015 [facility] Discharge Problem 2015-04-14 2015-04-14 Memoria Diagnosis: 04-11 05:25:30 05:25:30 l Knee pain, 05:00: Kristopher n right Discharge 00 Diagnosis: Knee pain, right 04/11/2015 04/14/2015 [facility] Discharge Problem 2015-04-14 2015-04-14 Memoria Diagnosis: 04-11 05:25:30 05:25:30 l Lumbar 05:00: [place] spondylosi Discharge 00 s Diagnosis: Lumbar spondylosi s 04/11/2015 04/14/2015 [facility] Discharge Problem 2015-04-14 2015-04-14 Memoria Diagnosis: 04-11 05:25:30 05:25:30 l Anterolist 05:00: Kristopher n hesis Discharge 00 Diagnosis: Anterolist hesis 04/11/2015 04/14/2015 [facility] Discharge Problem 2015-04-14 2015-04-14 Memoria Diagnosis: 04-11 05:25:30 05:25:30 l Accidental 05:00: Kristopher n fall Discharge 00 Diagnosis: Accidental fall 04/11/2015 04/14/2015 [facility] Discharge Problem 2015-04-02 2015-04-02 Memoria Diagnosis: 03-30 00:46:48 00:46:48 l Chronic 05:00: [place] pain in Discharge 00 right Diagnosis: shoulder Chronic pain in right shoulder 5 04/02/2015 [facility] Discharge Problem 2015-03-14 2015-03-14 Memoria Diagnosis: 03-11 09:47:20 09:47:20 l Chest wall 05:00: Kristopher n muscle Discharge 00 strain Diagnosis: Chest wall muscle strain 03/11/2015 03/14/2015 [facility] Discharge Problem 2015-03-08 2015-03-08 Memoria Diagnosis: 03-05 04:07:57 04:07:57 l Dyspnea 05:00: Maciej Discharge 00 Diagnosis: Dyspnea 03/05/2015 03/08/2015 [facility] Allergies, Adverse Reactions, Alerts Allergy Allergy Status Severity Reaction(s) Onset Inactive Treating Comm ents Source Name Type Date Date Clinician Penicill Propensi Active Justin ins ty to 07 Health adverse 00:00: reaction 00 s to drug penicill penicill Active Pari a ins ins l [place] Social History Social Habit Start Date Stop [...] Cam ris (NAPROSYN) 7-11 bilateral tablet by [employer] 375 mg 00:00: low back mouth 2 tablet 00 pain, with times sciatica daily as presence needed (as unspecified needed for pain). Sodium No 1,000 mL, Memori a Chloride 5-24 2,000 l 0.154 18:00: ml/hr, [place] MEQ/ML 00 Infuse Injectable Over: 30 Solution [...] PO, l Oral 03:41: BID, X 7 [place] Capsule 00 day, # 14 [Macrobid] cap, 0 Refill(s) Tramadol No Notes: Not Mem oria - to exceed l 03:02: 400mg/day. Maciej 00 (Same As: Ultram) Albuterol No Notes: Memori a 0.833 MG/ML -03 (Same as: l / 00:23: Duoneb) [place] Ipratropium 00 [place] 0.167 MG/ML Inhalant Solution [DuoNeb] Saline No [...] 0.9% 3-12 (Same as: l 00:51: BD [place] 00 Posiflush) atorvastati No Notes: Eleazar hilton n 2-14 Same as l 03:00: Lipitor [place] 00 remove No Notes: Memoria patch 2-14 Remove l 03:00: patch 12 Maciej 00 hours after applicatio n each day. metoprolol No Notes: Memor ia tartrate 2-13 (Same as: l 15:00: Lopressor) [place] 00 12.5 mg=1/2 X 50 mg TAB heparin No Notes: Memoria sodium, 2-13 porcine l porcine 15:00: heparin [place] 2500 UNT/ML 00 Injectable Solution Protonix No Notes: Memoria 2-13 Tablet l 15:00: should not [place] 00 be chewed or crushed. (Same as: [...] Weight 50, kg, Start date: 10/11/16 9:00:00 POLYETHYLENE COMBINER, Duration: 30 day, Stop date: 11/09/16 17:00:00 [...] 2-13 not exceed l 02:07: 4 gm/day. [place] 00 (Same as: Tylenol) Docusate No Notes: Memoria 2-13 (Same as: l 02:07: Colace) (Do Not Crush) Morphine No Notes: Memoria 2-13 (Same l 02:07: as:MORPhin e Sulfate) Acetaminoph No Notes: Eleazar hilton en 325 MG / 2-13 (Same as: l Hydrocodone 02:07: [place] Caroline nn Bitartrate 00 325/5) Do 5 [...] Weight 50, kg, Start date: 09/15/16 9:00:00 POLYETHYLENE COMBINER, Duration: 30 day, Stop date: 10/14/16 9:00:00 POLYETHYLENE COMBINER tramadol Yes 50 mg = 1 Eleazar hilton hydrochlori 8-17 tab, PO, l de 50 MG 06:12: BID, X 15 Herm sho Oral Tablet 00 day, # 30 tab, 0 Refill(s) Acetaminoph No Notes: Eleazar hilton en 325 MG / 8-17 (Same as: l Hydrocodone 05:13: [place] Caroline nn Bitartrate 00 325/5) Do 5 MG Oral not exceed Tablet 4gm/day of [[place] acetaminop 5/325] hen. atorvastati No Notes: Eleazar hilton n 7-16 (Same as: l 02:00: Lipitor) [place] 00 200 ACTUAT No Notes: Memor ia [...] hilton in 03-11 (Same l 20:05: as:Nitroqu [place] ick, Nitrostat) "Do Not Crush" Sublingual tablet [...] tab, PO, l Tablet 02:07: BID, PRN [place] [Naprosyn] 00 Pain Score 6-10, # 60 tab, 0 Refill(s) Zofran No Notes: Memoria 03-06 (Same as: l 00:55: Zofran Maciej 00 ODT) Acetaminoph No Notes: Eleazar hilton en 325 MG / 03-06 (Same as: l Hydrocodone 00:55: [place] Caroline nn Bitartrate 00 325/5) Do 5 MG Oral not exceed Tablet 4gm/day of [[place] acetaminop 5/325] hen. Flagyl No Notes: Memoria [...] l / 22:53: Duoneb) Maciej Ipratropium 00 [place] 0.167 MG/ML Inhalant Solution [DuoNeb] Symbicort Yes [...] as: l Tartrate 25 15:00: Toprol XL) [place] MG Extended 00 Do Not Release Crush Tablet [Toprol] clopidogrel No Notes: Eleazar hilton 09-04 (Same As: l 15:00: Plavix) [place] 00 Protonix No Notes: Memoria 09-04 Tablet [...] as: l / 14:00: Duoneb) Ipratropium 00 [place] 0.167 MG/ML Inhalant Solution methylPREDN No Notes: Eleazar hilton ISolone 09-04 (Same l SODium 14:00: as:Solu-ME Caroline nn SUCCinate 00 DROL, A-Methapre d) methylPREDN No Notes: Eleazar hilton ISolone 09-04 (Same l SODium 04:05: as:Solu-ME Caroline nn SUCCinate 00 DROL, A-Methapre d) Albuterol No Notes: Memori a 0.833 MG/ML 09-04 (Same as: l / 04:05: Duoneb) [place] Ipratropium 00 [place] 0.167 MG/ML Inhalant Solution Saline No Notes: Memoria Flush 0.9% 09-04 (Same as: l 04:05: BD [place] 00 Posiflush) atorvastati 2014-08 No Notes: Eleazar [...] microgram l 0.09 17:40: = 1 puff, [place] MG/ACTUAT 00 INHALATION Metered , Q4H, PRN [...] Memoria 1-18 Tablet l 13:30: should not [place] 00 be chewed or crushed. (Same as: Protonix) Albuterol 2014-08 No Notes: Memori a 0.833 MG/ML 1-18 (Same as: l / 03:38: Duoneb) Maciej Ipratropium 00 [place] 0.167 MG/ML Inhalant Solution Sodium 2014-08 No 250 mL, Memoria Chloride 09-15 Route: l 0.9% IV 03:26: IVPB, Maciej 00 Start date: 07/15/15 21:26:00, Duration: 30 day, Stop date: 08/14/15 21:25:00, PRN Line Flush BD Normal 2014-08 No Notes: Memori a Saline 09-15 (Same as: l Flush 03:26: BD [place] Posiflush) Nitroglycer 2014-08 No Notes: Eleazar hilton in 09-15 (Same l 03:23: as:Nitroqu [place] 00 ick, Nitrostat) "Do Not Crush" Sublingual tablet Ibuprofen 2014-08 No Notes: Memori a 09-15 (Same as: l 03:20: Motrin) [place] 00 "Do Not Crush" Give with food. Baclofen 2014-08 No Notes: Memoria 09-15 (Same As: l 03:20: Lioresal) Maciej 00 200 ACTUAT 2014-08 No Notes: Memor ia Albuterol 09-15 Albuterol l 0.09 03:20: 90 [place] MG/ACTUAT 00 microgram/ Metered inh 8gm Dose HFA Same Inhaler as: Ventolin, Proventil Sodium 2014-08 No 1,000 mL, Memori a Chloride 09-15 Rate: 125 l 0.0769 02:39: ml/hr, [place] MEQ/ML 00 Infuse Injectable over: 8 Solution hr, Route: IV, Dosing Weight 50 kg, Total Volume: 1,000, Start date: 07/15/15 20:39:00, Duration: 30 day, Stop date: 08/14/15 20:38:00 Saline 2014-08 No Notes: Memoria Flush 0.9% 09-15 (Same as: l 02:39: BD [place] Posiflush) Aspirin 2014-08 No 324 mg, Memoria 09-14 Route: PO, l 20:15: ONCE, [place] 00 Dosing Weight 50, kg, Priority: STAT, [...] / 04-11 Same as l Hydrocodone 17:21: [place] Caroline nn Bitartrate 00 325-7.5mg 7.5 MG Oral Do not Tablet exceed [[place] 4gm/day of 7.5/325] acetaminop hen. ibuprofen Yes [...] Memoria - (Same as: l 23:10: Motrin) [place] 00 "Do Not Crush" Take with food. [...] hilton 7-25 (Same As: l 16:00: Plavix) [place] metoprolol Yes 12.5 mg = Me moria [...] INHALATION l 0.09 02:19: , Q4H, PRN [place] MG/ACTUAT 00 for Metered wheezing, Dose # 9 gm, 0 Inhaler Refill(s) Ondansetron No Notes: Eleazar hilton 7-25 (Same as: l 02:12: Zofran) Maciej MEDICATION WASTE Product Size: 4 mg Product Wasted: ___ mg Docusate No Notes: Memoria 7-25 (Same as: l 02:12: Colace) [place] (Do Not Crush) Acetaminoph No Notes: Do M emoria en 7-25 not exceed l 02:12: 4 gm/day. [place] (Same as: Tylenol) Budesonide No Notes: Memor ia 0.25 MG/ML 7-25 (Same As: l Inhalant 01:00: Pulmicort) Her farooq Solution 00 [Pulmicort] Albuterol No Notes: Memori a 0.833 MG/ML 03-22 (Same as: l / 01:00: Duoneb) Maciej Ipratropium 00 [place] 0.167 MG/ML Inhalant Solution [DuoNeb] Potassium No Notes: Memori a Chloride 24 (Same as: l 1.33 MEQ/ML 23:15: Potassium H ermann Oral 00 Chloride) Solution Sodium No 1,000 mL, Memori a Chloride 24 1,000 l 0.154 22:23: ml/hr, [place] MEQ/ML 00 Infuse Injectable Over: 1 Solution [...] hilton -24 (Same as: l 20:43: Zofran) [place] MEDICATION WASTE Product Size: 4 mg Product [...] 0.9% 03-11 (Same as: l 20:32: BD [place] 00 Posiflush) Famotidine No 20 mg, 1 [...] TOP, l 0.875 MG/HR 13:32: Daily, X [facility] Transdermal 56 14 day, # Patch 14 [...] PO, l oral tablet 13:32: [facility], # 30 [...] tab, PO, l tablet 20:24: BID, PRN [place] 00 Pain, # 30 tab, 0 Refill(s) [...] PO, l oral tablet 20:24: Bedtime, # [place] 00 30 tab, 0 Refill(s) omeprazole Yes [...] not crush l Coated 14:00: or chew. [place] Tablet 00 (Same As: Ecotrin) Sodium No 1,000 mL, Memori a Chloride -22 Rate: 125 l 0.154 13:38: ml/hr, [place] MEQ/ML 00 Infuse Injectable over: 8 Solution hr, Route: IV, Dosing Weight 51.051 kg, Total Volume: 1,000, Start date: 02/17/15 8:38:00, Duration: 30 day, Stop date: 03/19/15 8:37:00 Aspirin 81 No 81 mg = 1 Me moria MG Enteric 6-22 tab, PO, l Coated 02:37: Daily, # [place] Tablet 00 90 tab, 3 Refill(s) clopidogrel Yes 75 mg = 1 M emoria 75 MG Oral 02-17 tab, PO, l Tablet 02:37: Daily, # [place] [Plavix] 00 30 tab, 0 Refill(s) Enoxaparin No Notes: Memor ia 02-17 Nurse to l 02:30: ensure [place] 00 documentat ion of patient education per [...] rphan 02-17 (dextromet l Hydrobromid 02:08: horphan-gu [place] e 2 MG/ML / 00 aifenesin Guaifenesin [...] 02-17 not exceed l 02:06: 4 gm/day. [place] 00 (Same as: Tylenol) Acetaminoph No Notes: Eleazar hilton en 325 MG / 02-17 (Same as: l Hydrocodone 02:06: [place] Caroline nn Bitartrate 00 325/5) Do 5 MG Oral not exceed Tablet 4gm/day of acetaminop hen. Morphine No Notes: Memoria 02-17 (Same l 02:06: as:MORPhin [place] 00 e Sulfate) Sodium No 1,000 mL, Memori a Chloride 02-17 Rate: 125 l 0.154 02:06: ml/hr, [place] MEQ/ML 00 Infuse Injectable over: 8 Solution [...] hilton in 02-17 (Same l 00:28: as:Nitroqu [place] 00 ick, Nitrostat) "Do Not Crush" Sublingual tablet Aspirin No Notes: (Do Eleazar hilton 02-16 Not Crush) l 22:49: Do not [place] crush or chew. Ondansetron No Notes: Eleazar hilton 12-22 (Same as: l 21:22: Zofran) Morphine No Notes: Memoria 12-22 (Same l 21:22: as:MORPhin Maciej e Sulfate) Aspirin / No Notes: Memori a Calcium 12-22 Take with l Carbonate 21:22: food. Aspirin 81 Yes 81 mg = 1 Me moria MG Enteric 4-21 tab, PO, l Coated 20:08: Daily, # [place] Tablet 00 90 tab, 0 Refill(s) metoprolol Yes 12.5 mg = Me moria tartrate 25 -21 0.5 tab, l mg oral 20:08: PO, BID, # Herm sho tablet 00 90 tab, 0 Refill(s) clopidogrel Yes 75 mg = 1 M emoria 75 mg oral 4-21 tab, PO, l tablet 20:08: Daily, # [place] 00 90 tab, 0 Refill(s) atorvastati Yes [...] 0.9% -21 (Same as: l 14:00: BD [place] 00 Posiflush) Adenosine No 41.6178 Memor ia [...] hilton in 12-17 (Same l 03:25: as:Nitroqu [place] 00 ick, Nitrostat) "Do Not Crush" Sublingual tablet atorvastati No 20 mg = 1 M emoria n 20 mg 21 tab, PO, l oral tablet 01:48: Bedtime, # Maciej 00 30 tab, 0 Refill(s) clopidogrel No 75 mg = 1 M emoria 75 mg oral 4-21 tab, PO, l tablet 01:48: Daily, 0 [place] 00 Refill(s) Metoprolol No 12.5 mg = Me moria Tartrate 25 4-21 0.5 tab, l mg oral 01:47: PO, BID, 0 Herm sho tablet 00 Refill(s) Aspirin Low No = 1 tab, Me moria Dose 81 mg -21 PO, Daily, l oral tablet 01:46: 0 Kristopher n 00 Refill(s) Sodium No 1,000 mL, Memori a Chloride 12-16 1,000 l 0.154 23:43: ml/hr, [place] MEQ/ML 00 Infuse Injectable Over: 1 Solution hr, Route: IV, 1,000, Drug form: INJ, ONCE, Priority: STAT, Dosing Weight 48.636 kg, Start date: 12/16/13 18:43:00, Duration: 1 doses or times, Stop date: 12/16/13 18:43:00 Iohexol No Special Memoria 4-20 Instructio l 21:17: ns: Dose = [place] 00 2.2ml/kg, Max dose = 100ml -- [...] Chloride 4-20 1,000 l 0.154 19:36: ml/hr, [place] MEQ/ML 00 Infuse Injectable Over: 1 Solution [...] n 3-14 tab, l 02:00: Route: PO, [place] 00 Drug form: TAB, Bedtime, Dosing Weight [...] tab, PO, l Tablet 20:52: Daily, # [place] 00 60 tab, 0 Refill(s) Plavix No [...] ia 3-13 tab, l 13:15: Route: PO, [place] 00 Drug form: TAB, Q4H, Dosing Weight 63.636, kg, PRN Pain, Start date: 11/08/13 8:15:00, Duration: 30 day, Stop date: 12/08/13 8:14:00Do not exceed 4 gm/day. (Same as: Tylenol) Saline No 5 ml, Memoria Flush 0.9% 11-08 Route: l 12:06: MISC, Drug [place] 00 Form: INJ, Dosing Weight 63.636, kg, [...] Systolic (mm Hg) 2017-01-19 23:16:00 Eleazar rial [place] Diastolic (mm Hg) 2017-01-19 23:16:00 Mem orial Maciej Respitory Rate 2017-01-19 23:16:00 Memori al [place] Systolic (mm Hg) 2017-01-19 22:28:00 Eleazar rial Maciej Diastolic (mm Hg) 2017-01-19 22:28:00 Mem orial [place] Respitory Rate 2017-01-19 22:28:00 Memori al Maciej Respitory Rate 2017-01-19 21:00:00 Memori al [place] Systolic (mm Hg) 2017-01-19 20:00:00 Eleazar rial Maciej Diastolic (mm Hg) 2017-01-19 20:00:00 Mem orial Maciej Weight 2017-01-19 17:23:00 Memorial Maciej BMI Calculated 2017-01-19 17:23:00 Memori al Maciej Height 2017-01-19 17:23:00 152.4 cm Memorial Maciej Temperature Oral (F) 2017-01-19 17:23:00 97.0 F [facility] Maciej Heart Rate 2017-01-19 17:23:00 [facility] [place] Systolic (mm Hg) 2017-01-17 02:10:00 Eleazar rial [place] Diastolic (mm Hg) 2017-01-17 02:10:00 Mem orial Maciej Respitory Rate 2017-01-17 02:10:00 Memori al [place] Systolic (mm Hg) 2017-01-17 01:21:00 Eleazar rial [place] Diastolic (mm Hg) 2017-01-17 01:21:00 Mem orial Maciej Respitory Rate 2017-01-17 01:21:00 Memori al [place] Temperature Oral (F) 2017-01-17 01:21:00 98.1 F [facility] [place] Systolic (mm Hg) 2017-01-17 00:28:00 Eleazar rial Maciej Diastolic (mm Hg) 2017-01-17 00:28:00 Mem orial Maciej Respitory Rate 2017-01-17 00:28:00 Memori al [place] Heart Rate 2017-01-16 23:24:00 [facility] Maciej Temperature Oral (F) 2017-01-16 23:24:00 98 F [facility] [place] Weight 2017-01-16 23:24:00 [facility] [place] Heart Rate 2016-11-29 03:44:00 [facility] Maciej Systolic (mm Hg) 2016-11-29 03:44:00 Eleazar rial Maciej Diastolic (mm Hg) 2016-11-29 03:44:00 Mem orial Maciej Respitory Rate 2016-11-29 03:44:00 Memori al Maciej Temperature Oral (F) 2016-11-29 03:44:00 98.7 F [facility] [place] Heart Rate 2016-11-29 03:24:00 [facility] Maciej Respitory Rate 2016-11-29 03:24:00 Memori al Maciej Systolic (mm Hg) 2016-11-29 03:24:00 [facility] Diastolic (mm Hg) 2016-11-29 03:24:00 [facility] Heart Rate 2016-11-29 02:51:00 [facility] Respitory Rate 2016-11-29 02:51:00 [facility] Systolic (mm Hg) 2016-11-29 02:51:00 [facility] Diastolic (mm Hg) 2016-11-29 02:51:00 [facility] Weight 2016-11-29 00:21:00 [facility] BMI Calculated 2016-11-29 00:21:00 [facility] Height 2016-11-29 00:21:00 152.4 cm [facility] Temperature Oral (F) 2016-11-29 00:21:00 98.6 F [facility] Respitory Rate 2016-11-07 02:47:00 [facility] Heart Rate 2016-11-07 02:47:00 [facility] Temperature Oral (F) 2016-11-07 02:47:00 98.2 F [facility] Systolic (mm Hg) 2016-11-07 02:47:00 [facility] Diastolic (mm Hg) 2016-11-07 02:47:00 [facility] Heart Rate 2016-11-07 02:22:00 [facility] Respitory Rate 2016-11-07 02:22:00 [facility] Systolic (mm Hg) 2016-11-07 02:22:00 [facility] Diastolic (mm Hg) 2016-11-07 02:22:00 [facility] Weight 2016-11-06 23:37:00 [facility] Heart Rate 2016-11-06 23:37:00 [facility] Temperature Oral (F) 2016-11-06 23:37:00 98.3 F [facility] Respitory Rate 2016-11-06 23:37:00 [facility] Systolic (mm Hg) 2016-11-06 23:37:00 [facility] Diastolic (mm Hg) 2016-11-06 23:37:00 [facility] Respitory Rate 2016-10-11 18:24:00 [facility] Temperature Oral (F) 2016-10-11 18:24:00 97.9 F [facility] Systolic (mm Hg) 2016-10-11 18:24:00 [facility] Diastolic (mm Hg) 2016-10-11 18:24:00 [facility] Heart Rate 2016-10-11 18:24:00 [facility] Heart Rate 2016-10-11 13:53:00 [facility] Systolic (mm Hg) 2016-10-11 13:53:00 [facility] Diastolic (mm Hg) 2016-10-11 13:53:00 [facility] Temperature Oral (F) 2016-10-11 13:53:00 98.1 F [facility] Temperature Oral (F) 2016-10-11 10:16:00 99.0 F [facility] Respitory Rate 2016-10-11 10:16:00 [facility] Heart Rate 2016-10-11 10:16:00 [facility] Systolic (mm Hg) 2016-10-11 10:16:00 [facility] Diastolic (mm Hg) 2016-10-11 10:16:00 [facility] Weight 2016-10-11 06:46:00 [facility] BMI Calculated 2016-10-11 06:46:00 [facility] Height 2016-10-11 06:46:00 152.4 cm [facility] Respitory Rate 2016-10-11 06:39:00 [facility] Height 2016-10-10 17:48:00 152.4 cm [facility] BMI Calculated 2016-10-10 17:48:00 [facility] Weight 2016-10-10 17:48:00 [facility] BMI Calculated 2016-09-15 04:26:00 [facility] Weight 2016-09-15 04:26:00 [facility] Height 2016-09-15 04:26:00 152.4 cm [facility] Systolic (mm Hg) 2016-09-15 04:26:00 [facility] Diastolic (mm Hg) 2016-09-15 04:26:00 [facility] Respitory Rate 2016-09-15 04:26:00 [facility] Rate 2016-09-15 04:26:00 [facility] Temperature Oral (F) 2016-09-15 04:26:00 98.5 F [facility] Respitory Rate 2016-04-14 06:22:00 [facility] Temperature Oral (F) 2016-04-14 06:22:00 98.7 F [facility] Systolic (mm Hg) 2016-04-14 06:22:00 [facility] Diastolic (mm Hg) 2016-04-14 06:22:00 [facility] Heart Rate 2016-04-14 06:22:00 [facility] BMI Calculated 2016-04-14 02:12:00 [facility] Weight 2016-04-14 02:12:00 [facility] Temperature Oral (F) 2016-04-14 02:12:00 99.2 F [facility] Height 2016-04-14 02:12:00 152.4 cm [facility] Respitory Rate 2016-04-14 02:12:00 [facility] Systolic (mm Hg) 2016-04-14 02:12:00 [facility] Diastolic (mm Hg) 2016-04-14 02:12:00 [facility] Heart Rate 2016-04-14 02:12:00 [facility] Temperature Oral (F) 2016-03-12 17:00:00 97.8 F [facility] Heart Rate 2016-03-12 17:00:00 [facility] Respitory Rate 2016-03-12 17:00:00 [facility] Systolic (mm Hg) 2016-03-12 17:00:00 [facility] Diastolic (mm Hg) 2016-03-12 17:00:00 [facility] Respitory Rate 2016-03-12 12:54:00 [facility] Systolic (mm Hg) 2016-03-12 12:30:00 [facility] Diastolic (mm Hg) 2016-03-12 12:30:00 [facility] Respitory Rate 2016-03-12 12:30:00 [facility] Heart Rate 2016-03-12 12:30:00 [facility] Temperature Oral (F) 2016-03-12 12:30:00 98.2 F [facility] Temperature Oral (F) 2016-03-12 10:26:00 98.0 F [facility] Heart Rate 2016-03-12 10:26:00 [facility] Systolic (mm Hg) 2016-03-12 10:26:00 [facility] Diastolic (mm Hg) 2016-03-12 10:26:00 [facility] Height 2016-03-11 19:45:00 152.4 cm [facility] BMI Calculated 2016-03-11 19:45:00 [facility] Weight 2016-03-11 19:45:00 [facility] Respitory Rate 2016-03-06 01:44:00 [facility] Systolic (mm Hg) 2016-03-06 01:44:00 [facility] Diastolic (mm Hg) 2016-03-06 01:44:00 [facility] Heart Rate 2016-03-06 01:44:00 [facility] Temperature Oral (F) 2016-03-06 01:44:00 98.1 F [facility] BMI Calculated 2016-03-05 21:55:00 [facility] Weight 2016-03-05 21:55:00 [facility] Systolic (mm Hg) 2016-03-05 21:55:00 [facility] Diastolic (mm Hg) 2016-03-05 21:55:00 [facility] Rate 2016-03-05 21:55:00 [facility] Height 2016-03-05 21:55:00 152.4 cm [facility] Temperature Oral (F) 2016-03-05 21:55:00 98.3 F [facility] Respitory Rate 2016-03-05 21:55:00 [facility] Respitory Rate 2016-03-01 01:23:00 [facility] Systolic (mm Hg) 2016-03-01 01:23:00 [facility] Diastolic (mm Hg) 2016-03-01 01:23:00 [facility] Temperature Oral (F) 2016-03-01 01:23:00 98.2 F [facility] Heart Rate 2016-03-01 01:23:00 [facility] Respitory Rate 2016-02-29 23:25:00 [facility] Temperature Oral (F) 2016-02-29 22:27:00 98.3 F [facility] Heart Rate 2016-02-29 22:27:00 [facility] Respitory Rate 2016-02-29 22:27:00 [facility] Systolic (mm Hg) 2016-02-29 22:27:00 [facility] Diastolic (mm Hg) 2016-02-29 22:27:00 [facility] Rate 2015-09-05 14:47:00 [facility] Systolic (mm Hg) 2015-09-05 14:47:00 [facility] Diastolic (mm Hg) 2015-09-05 14:47:00 [facility] Rate 2015-09-05 14:47:00 [facility] Weight 2015-09-05 11:00:00 [facility] Systolic (mm Hg) 2015-09-05 10:00:00 [facility] Diastolic (mm Hg) 2015-09-05 10:00:00 [facility] Respitory Rate 2015-09-05 10:00:00 [facility] Heart Rate 2015-09-05 10:00:00 [facility] Respitory Rate 2015-09-05 06:00:00 [facility] Systolic (mm Hg) 2015-09-05 06:00:00 [facility] Diastolic (mm Hg) 2015-09-05 06:00:00 [facility] Rate 2015-09-05 06:00:00 [facility] Weight 2015-09-04 11:00:00 [facility] Weight 2015-09-04 09:15:00 [facility] BMI Calculated 2015-09-04 09:15:00 [facility] Height 2015-09-04 09:15:00 160.02 cm [facility] Temperature Oral (F) 2015-09-04 09:06:00 98.3 F [facility] Height 2015-09-04 03:35:00 152.4 cm [facility] BMI Calculated 2015-09-04 03:35:00 [facility] Temperature Oral (F) 2015-09-04 03:35:00 98.7 F [facility] Systolic (mm Hg) 2015-07-16 13:56:00 [facility] Diastolic (mm Hg) 2015-07-16 13:56:00 [facility] Respitory Rate 2015-07-16 13:56:00 [facility] Rate 2015-07-16 13:56:00 [facility] Temperature Oral (F) 2015-07-16 13:56:00 98.0 F [facility] Systolic (mm Hg) 2015-07-16 13:55:00 [facility] Diastolic (mm Hg) 2015-07-16 13:55:00 [facility] Respitory Rate 2015-07-16 13:55:00 [facility] Heart Rate 2015-07-16 13:55:00 [facility] Temperature Oral (F) 2015-07-16 13:55:00 97.4 F [facility] Systolic (mm Hg) 2015-07-16 10:00:00 [facility] Diastolic (mm Hg) 2015-07-16 10:00:00 [facility] Respitory Rate 2015-07-16 10:00:00 [facility] Heart Rate 2015-07-16 10:00:00 [facility] Temperature Oral (F) 2015-07-16 10:00:00 97.9 F [facility] Height 2015-07-16 01:30:00 152.4 cm [facility] Weight 2015-07-16 01:30:00 [facility] BMI Calculated 2015-07-16 01:30:00 [facility] Height 2015-07-15 18:10:00 152.4 cm [facility] BMI Calculated 2015-07-15 18:10:00 [facility] Weight 2015-07-15 18:10:00 [facility] Weight 2015-07-05 04:10:00 [facility] Height 2015-07-05 04:10:00 152.4 cm [facility] BMI Calculated 2015-07-05 04:10:00 [facility] Temperature Oral (F) 2015-07-05 04:10:00 98.3 F [facility] Respitory Rate 2015-07-05 04:10:00 [facility] Heart Rate 2015-07-05 04:10:00 [facility] Systolic (mm Hg) 2015-07-05 04:10:00 [facility] Diastolic (mm Hg) 2015-07-05 04:10:00 [facility] BMI Calculated 2015-07-04 18:05:00 [facility] Weight 2015-07-04 18:05:00 [facility] Height 2015-07-04 18:05:00 152.4 cm [facility] Temperature Oral (F) 2015-07-04 18:05:00 97.9 F [facility] Respitory Rate 2015-07-04 18:05:00 [facility] Rate 2015-07-04 18:05:00 [facility] Systolic (mm Hg) 2015-07-04 18:05:00 [facility] Diastolic (mm Hg) 2015-07-04 18:05:00 [facility] BMI Calculated 2015-06-04 04:13:00 [facility] Weight 2015-06-04 04:13:00 [facility] Height 2015-06-04 04:13:00 152.4 cm [facility] Temperature Oral (F) 2015-06-04 04:13:00 98.8 F [facility] Respitory Rate 2015-06-04 04:13:00 [facility] Heart Rate 2015-06-04 04:13:00 [facility] Systolic (mm Hg) 2015-06-04 04:13:00 [facility] Diastolic (mm Hg) 2015-06-04 04:13:00 [facility] Systolic (mm Hg) 2015-05-18 22:47:00 [facility] Diastolic (mm Hg) 2015-05-18 22:47:00 [facility] Temperature Oral (F) 2015-05-18 22:47:00 96.6 F [facility] Heart Rate 2015-05-18 22:47:00 [facility] Respitory Rate 2015-05-18 22:47:00 [facility] Systolic (mm Hg) 2015-05-18 22:30:00 [facility] Diastolic (mm Hg) 2015-05-18 22:30:00 [facility] Systolic (mm Hg) 2015-05-18 21:00:00 [facility] Diastolic (mm Hg) 2015-05-18 21:00:00 [facility] Temperature Oral (F) 2015-05-18 21:00:00 98.1 F [facility] Respitory Rate 2015-05-18 21:00:00 [facility] Temperature Oral (F) 2015-05-18 19:21:00 98.2 F [facility] Heart Rate 2015-05-18 19:21:00 [facility] Respitory Rate 2015-05-18 19:21:00 [facility] Heart Rate 2015-05-18 17:10:00 [facility] Respitory Rate 2015-05-09 20:00:00 [facility] Systolic (mm Hg) 2015-05-09 20:00:00 [facility] Diastolic (mm Hg) 2015-05-09 20:00:00 [facility] Temperature Oral (F) 2015-05-09 20:00:00 97.5 F [facility] Temperature Oral (F) 2015-05-09 19:10:00 97.5 F [facility] Systolic (mm Hg) 2015-05-09 19:10:00 [facility] Diastolic (mm Hg) 2015-05-09 19:10:00 [facility] Respitory Rate 2015-05-09 19:10:00 [facility] Systolic (mm Hg) 2015-05-09 18:41:00 [facility] Diastolic (mm Hg) 2015-05-09 18:41:00 [facility] Weight 2015-05-09 17:37:00 [facility] BMI Calculated 2015-05-09 17:37:00 [facility] Height 2015-05-09 17:37:00 152.4 cm [facility] Temperature Oral (F) 2015-05-09 17:37:00 98.9 F [facility] Respitory Rate 2015-05-09 17:37:00 [facility] Heart Rate 2015-05-09 17:37:00 [facility] Systolic (mm Hg) 2015-05-03 00:04:00 [facility] Diastolic (mm Hg) 2015-05-03 00:04:00 [facility] Rate 2015-05-03 00:04:00 [facility] Respitory Rate 2015-05-03 00:04:00 [facility] Temperature Oral (F) 2015-05-03 00:04:00 98.5 F [facility] Heart Rate 2015-05-02 21:17:00 [facility] Respitory Rate 2015-05-02 21:17:00 [facility] Systolic (mm Hg) 2015-05-02 21:17:00 [facility] Diastolic (mm Hg) 2015-05-02 21:17:00 [facility] Heart Rate 2015-05-02 20:24:00 [facility] Temperature Oral (F) 2015-05-02 20:24:00 98.1 F [facility] Systolic (mm Hg) 2015-05-02 20:24:00 [facility] Diastolic (mm Hg) 2015-05-02 20:24:00 [facility] Respitory Rate 2015-05-02 20:24:00 [facility] Temperature Oral (F) 2015-05-02 18:35:00 98.9 F [facility] Systolic (mm Hg) 2015-04-11 19:45:00 [facility] Diastolic (mm Hg) 2015-04-11 19:45:00 [facility] Temperature Oral (F) 2015-04-11 19:45:00 98.7 F [facility] Respitory Rate 2015-04-11 19:45:00 [facility] Heart Rate 2015-04-11 19:45:00 [facility] Weight 2015-04-11 16:35:00 [facility] Temperature Oral (F) 2015-04-11 16:35:00 98.4 F [facility] Systolic (mm Hg) 2015-04-11 16:35:00 [facility] Diastolic (mm Hg) 2015-04-11 16:35:00 [facility] Respitory Rate 2015-04-11 16:35:00 [facility] Heart Rate 2015-04-11 16:35:00 [facility] Systolic (mm Hg) 2015-03-30 22:06:00 [facility] Diastolic (mm Hg) 2015-03-30 22:06:00 [facility] Temperature Oral (F) 2015-03-30 22:06:00 97.9 F [facility] Heart Rate 2015-03-30 22:06:00 [facility] Respitory Rate 2015-03-30 22:06:00 [facility] BMI Calculated 2015-03-30 19:44:00 [facility] Height 2015-03-30 19:44:00 152.4 cm [facility] Systolic (mm Hg) 2015-03-30 19:44:00 [facility] Diastolic (mm Hg) 2015-03-30 19:44:00 [facility] Respitory Rate 2015-03-30 19:44:00 [facility] Heart Rate 2015-03-30 19:44:00 [facility] Weight 2015-03-30 19:44:00 [facility] Temperature Oral (F) 2015-03-30 19:44:00 97.9 F [facility] Respitory Rate 2015-03-24 21:57:00 [facility] Temperature Oral (F) 2015-03-24 21:57:00 97.9 F [facility] Heart Rate 2015-03-24 21:57:00 [facility] Systolic (mm Hg) 2015-03-24 21:57:00 [facility] Diastolic (mm Hg) 2015-03-24 21:57:00 [facility] Rate 2015-03-24 17:28:00 [facility] Temperature Oral (F) 2015-03-24 17:28:00 98.8 F [facility] Respitory Rate 2015-03-24 17:28:00 [facility] Systolic (mm Hg) 2015-03-24 17:28:00 [facility] Diastolic (mm Hg) 2015-03-24 17:28:00 [facility] Heart Rate 2015-03-24 13:08:00 [facility] Temperature Oral (F) 2015-03-24 13:08:00 98.4 F [facility] Respitory Rate 2015-03-24 13:08:00 [facility] Systolic (mm Hg) 2015-03-24 13:08:00 [facility] Diastolic (mm Hg) 2015-03-24 13:08:00 [facility] BMI Calculated 2015-03-22 01:41:00 [facility] Weight 2015-03-22 01:41:00 [facility] Height 2015-03-22 01:41:00 152.4 cm [facility] BMI Calculated 2015-03-21 18:42:00 [facility] Weight 2015-03-21 18:42:00 [facility] Height 2015-03-21 18:42:00 152.4 cm [facility] Systolic (mm Hg) 2015-03-11 22:39:00 [facility] Diastolic (mm Hg) 2015-03-11 22:39:00 [facility] Respitory Rate 2015-03-11 22:39:00 [facility] Heart Rate 2015-03-11 22:39:00 [facility] Temperature Oral (F) 2015-03-11 22:39:00 98.1 F [facility] BMI Calculated 2015-03-11 19:44:00 [facility] Weight 2015-03-11 19:44:00 [facility] Systolic (mm Hg) 2015-03-11 19:44:00 [facility] Diastolic (mm Hg) 2015-03-11 19:44:00 [facility] Temperature Oral (F) 2015-03-11 19:44:00 97.9 F [facility] Heart Rate 2015-03-11 19:44:00 [facility] Respitory Rate 2015-03-11 19:44:00 [facility] Height 2015-03-11 19:44:00 152.4 cm [facility] Temperature Oral (F) 2015-03-05 10:15:00 97.9 F [facility] Systolic (mm Hg) 2015-03-05 10:15:00 [facility] Diastolic (mm Hg) 2015-03-05 10:15:00 [facility] Respitory Rate 2015-03-05 10:15:00 [facility] Respitory Rate 2015-03-05 09:53:00 [facility] Temperature Oral (F) 2015-03-05 09:53:00 97.8 F [facility] Systolic (mm Hg) 2015-03-05 09:53:00 [facility] Diastolic (mm Hg) 2015-03-05 09:53:00 [facility] Respitory Rate 2015-03-05 06:30:00 [facility] Systolic (mm Hg) 2015-03-05 06:30:00 [facility] Diastolic (mm Hg) 2015-03-05 06:30:00 [facility] Temperature Oral (F) 2015-03-05 06:20:00 97.7 F [facility] Heart Rate 2015-03-05 06:20:00 [facility] Heart Rate 2015-03-05 05:46:00 [facility] Height 2015-03-05 05:46:00 152.4 cm [facility] BMI Calculated 2015-03-05 05:46:00 [facility] Weight 2015-03-05 05:46:00 [facility] Systolic (mm Hg) 2015-02-25 20:55:00 [facility] Diastolic (mm Hg) 2015-02-25 20:55:00 [facility] Temperature Oral (F) 2015-02-25 20:55:00 97.9 F [facility] Heart Rate 2015-02-25 20:55:00 [facility] Respitory Rate 2015-02-25 20:55:00 [facility] Temperature Oral (F) 2015-02-25 17:18:00 98 F [facility] Heart Rate 2015-02-25 17:18:00 [facility] Respitory Rate 2015-02-25 17:18:00 [facility] Systolic (mm Hg) 2015-02-25 17:18:00 [facility] Diastolic (mm Hg) 2015-02-25 17:18:00 [facility] Systolic (mm Hg) 2015-02-25 12:00:00 [facility] Diastolic (mm Hg) 2015-02-25 12:00:00 [facility] Respitory Rate 2015-02-25 12:00:00 [facility] Heart Rate 2015-02-25 12:00:00 [facility] Temperature Oral (F) 2015-02-25 12:00:00 97.8 F [facility] Height 2015-02-24 16:11:00 152.4 cm [facility] BMI Calculated 2015-02-24 16:11:00 [facility] Weight 2015-02-24 16:11:00 [facility] Heart Rate 2015-02-18 20:17:00 [facility] Temperature Oral (F) 2015-02-18 20:17:00 97.3 F [facility] Systolic (mm Hg) 2015-02-18 20:17:00 [facility] Diastolic (mm Hg) 2015-02-18 20:17:00 [facility] Respitory Rate 2015-02-18 20:17:00 [facility] Heart Rate 2015-02-18 16:13:00 [facility] Respitory Rate 2015-02-18 16:13:00 [facility] Systolic (mm Hg) 2015-02-18 16:13:00 [facility] Diastolic (mm Hg) 2015-02-18 16:13:00 [facility] Temperature Oral (F) 2015-02-18 16:13:00 97.5 F [facility] Temperature Oral (F) 2015-02-18 12:19:00 97.9 F [facility] Systolic (mm Hg) 2015-02-18 12:19:00 [facility] Diastolic (mm Hg) 2015-02-18 12:19:00 [facility] Respitory Rate 2015-02-18 12:19:00 [facility] Heart Rate 2015-02-18 12:19:00 [facility] Weight 2015-02-17 02:30:00 [facility] Height 2015-02-17 02:30:00 152.4 cm [facility] BMI Calculated 2015-02-17 02:30:00 [facility] Weight 2015-02-16 20:42:00 [facility] BMI Calculated 2015-02-16 20:42:00 [facility] Height 2015-02-16 20:42:00 152.4 cm [facility] Respitory Rate 2013-12-25 19:27:00 [facility] Heart Rate 2013-12-25 19:27:00 [facility] Diastolic (mm Hg) 2013-12-25 19:27:00 [facility] Systolic (mm Hg) 2013-12-25 19:27:00 [facility] Temperature Oral (F) 2013-12-25 19:27:00 98.3 F [facility] BMI Calculated 2013-12-25 16:48:00 [facility] Weight 2013-12-25 16:48:00 [facility] Height 2013-12-25 16:48:00 152.4 cm [facility] Respitory Rate 2013-12-25 16:48:00 [facility] Heart Rate 2013-12-25 16:48:00 [facility] Diastolic (mm Hg) 2013-12-25 16:48:00 [facility] Systolic (mm Hg) 2013-12-25 16:48:00 [facility] Temperature Oral (F) 2013-12-25 16:48:00 98.8 F [facility] Heart Rate 2013-12-23 00:27:00 [facility] Systolic (mm Hg) 2013-12-23 00:27:00 [facility] Respitory Rate 2013-12-23 00:27:00 [facility] Temperature Oral (F) 2013-12-23 00:27:00 98.3 F [facility] Diastolic (mm Hg) 2013-12-23 00:27:00 [facility] Diastolic (mm Hg) 2013-12-22 23:06:00 [facility] Temperature Oral (F) 2013-12-22 23:06:00 98.4 F [facility] Systolic (mm Hg) 2013-12-22 23:06:00 [facility] Respitory Rate 2013-12-22 23:06:00 [facility] Heart Rate 2013-12-22 23:06:00 [facility] Weight 2013-12-22 20:46:00 [facility] Temperature Oral (F) 2013-12-22 20:46:00 98.7 F [facility] Systolic (mm Hg) 2013-12-22 20:46:00 [facility] Diastolic (mm Hg) 2013-12-22 20:46:00 [facility] Respitory Rate 2013-12-22 20:46:00 [facility] Heart Rate 2013-12-22 20:46:00 [facility] Diastolic (mm Hg) 2013-12-17 20:30:00 [facility] Respitory Rate 2013-12-17 20:30:00 [facility] Systolic (mm Hg) 2013-12-17 20:30:00 [facility] Systolic (mm Hg) 2013-12-17 19:06:00 [facility] Diastolic (mm Hg) 2013-12-17 19:06:00 [facility] Respitory Rate 2013-12-17 19:06:00 [facility] Systolic (mm Hg) 2013-12-17 18:54:00 [facility] Diastolic (mm Hg) 2013-12-17 18:54:00 [facility] Temperature Oral (F) 2013-12-17 17:09:00 98.1 F [facility] Respitory Rate 2013-12-17 16:50:00 [facility] Temperature Oral (F) 2013-12-17 09:00:00 97.1 F [facility] Height 2013-12-17 02:58:00 152.4 cm [facility] Weight 2013-12-17 02:58:00 [facility] BMI Calculated 2013-12-17 02:58:00 [facility] Temperature Oral (F) 2013-12-17 02:55:00 98.1 F [facility] Height 2013-12-16 17:19:00 152.4 cm [facility] BMI Calculated 2013-12-16 17:19:00 [facility] Weight 2013-12-16 17:19:00 [facility] Heart Rate 2013-12-16 17:19:00 [facility] Temperature Oral (F) 2013-11-08 21:00:00 98 F [facility] Diastolic (mm Hg) 2013-11-08 21:00:00 [facility] Respitory Rate 2013-11-08 21:00:00 [facility] Systolic (mm Hg) 2013-11-08 21:00:00 [facility] Temperature Oral (F) 2013-11-08 19:13:00 97.6 F [facility] Diastolic (mm Hg) 2013-11-08 19:13:00 [facility] Systolic (mm Hg) 2013-11-08 19:13:00 [facility] Respitory Rate 2013-11-08 19:13:00 [facility] Systolic (mm Hg) 2013-11-08 16:18:00 [facility] Respitory Rate 2013-11-08 16:18:00 [facility] Diastolic (mm Hg) 2013-11-08 16:18:00 [facility] Temperature Oral (F) 2013-11-08 11:34:00 99.0 F [facility] Heart Rate 2013-11-08 11:34:00 [facility] Heart Rate 2013-11-08 08:04:00 [facility] BMI Calculated 2013-11-08 04:51:00 [facility] Height 2013-11-08 04:51:00 152.4 cm [facility] Weight 2013-11-08 04:51:00 [facility] Heart Rate 2013-11-08 04:51:00 [facility] Procedures Procedure Date / Time Performing Clinician Source Performed Cardiac catheterization [facility] procedure Stent placement<sup>1</sup> [facility] Plan of Care Planned Activity Planned Date Details Comments Source Future Scheduled Test 2021-05-[address] [facility] [...] 00:00:00 neoplasm of colon (procedure) [code = 885806394] Future Scheduled Test [address] [facility] 00:00:00 (Yearly) [code = Breast Cancer Scrn (Yearly)] Future Scheduled Test 1966 COVID-19 Vaccine (1) [facility] 00:00:00 [code = COVID-19 Vaccine (1)] Encounters Start End Encounter Admission Attending Care Care Encounter Source Date/Time Date/Time Type Type Clinicians Facility Department ID 2020-10-15 2020-10-15 Emergency [facility] [id number] 02:02:00 04:45:00 Ciaran Freitas [id number] [place] [id number] [place] [id number] 2020-01-21 2020-01-21 Outpatient E [id number] 05[facility]31:00 05:31:00 2019-10-15 2019-10-15 Emergency E [id number] 13:12:00 13:12:00 2019-05-20 2019-05-20 Emergency [id number] 15:19:00 15:19:00 2019-02-25 2019-02-25 Emergency E [id number] 10:56:00 10:56:00 2018-08-21 2018-08-21 Emergency [facility] [id number] 9 [place] 18:32:58 18:32:58 Health 2018-08-21 2018-08-21 Emergency [facility] [id number] 6 [place] 17:47:59 17:47:59 Health 2018-08-21 2018-08-21 Emergency [facility] [id number] 4 [place] 16:16:06 16:16:06 [facility] 2018-08-16 2018-08-16 Emergency [facility] [id number] [place] 22:04:00 22:04:00 [facility] 2018-08-16 2018-08-16 Emergency [facility] [id number] 3 [place] 21:21:42 21:21:42 [facility] 2018-05-18 2018-05-18 Emergency [facility] [id number] 7 [place] 14:51:52 14:51:52 [facility] 2018-03-08 2018-03-08 Emergency [facility] [id number] 5 [place] 15:12:17 15:12:17 [facility] 2018-01-16 2018-01-16 Emergency [facility] [id number] 7 [place] 17:53:03 17:53:03 [facility] 2018-01-16 2018-01-16 Emergency [facility] [id number] 1 [place] 00:00:00 00:00:00 [facility] 2018-01-16 2018-01-16 Outpatient [facility] [id number] [address] [place] 00:00:00 00:00:00 [facility] 2017-11-11 2017-11-11 Emergency E [facility] MED [id number] [facility] 16:37:00 16:37:00 [facility] 2017-01-19 2017-01-19 Outpatient Patel, MHSE MHSE [id number] 12:18:00 18:37:00 Mac Bond 2017-01-16 2017-01-16 Outpatient Chayito, [facility] [id number] 18:22:00 21:34:00 Jl 33 [place] 2016-11-28 2016-11-28 Outpatient Ace, [facility] [id number] 19:17:00 23:13:00 Jason 32 [place] 2016-11-06 2016-11-06 Outpatient Elijah MHPL MHPL [id number] 17:34:00 21:03:00 Zaki 31 [place] 2016-10-10 2016-10-11 Outpatient Cinthya, [facility] [id number] 11:45:00 13:54:00 Jessika Jacek 30 2016-09-14 2016-09-15 Outpatient Emmanuel, MHPL MHPL [id number] 21:19:00 00:56:00 Nando Lozada 29 2016-04-13 2016-04-14 Outpatient Frandy [facility] [id number] 21:11:00 01:37:00 Jose Tripathi 2016-03-11 2016-03-12 Outpatient Mihai, MHPL MHPL [id number] 14:41:00 15:25:00 Andrea Marino 2016-03-05 2016-03-05 Outpatient Rina, MHPL MHPL [id number] 16:54:00 21:21:00 Rachele 26 [place] 2016-02-29 2016-02-29 Outpatient Bayron, [facility] PL [id number] 17:25:00 20:29:00 Good 25 2015-09-03 2015-09-05 Outpatient Mateus Dixon [facility] [id number] 21:30:00 10:26:00 B 24 2015-07-15 2015-07-16 Outpatient Anjel, [facility] [id number] 12:00:00 15:30:00 Janet 23 2015-07-04 2015-07-05 Outpatient Dick, [facility] [id number] 22:07:00 01:09:00 Habacuc 22 Breen 2015-07-04 2015-07-04 Outpatient Recio, [facility] [id number] 11:57:00 14:54:00 Maribel Berkowitz 21 2015-06-03 2015-06-04 Outpatient Ware, [facility] [id number] 23:00:00 02:09:00 Luzmaria Pisano 2015-05-18 2015-05-18 Outpatient Jennifer, [facility] [id number] 11:55:00 18:04:00 Indira S 19 2015-05-09 2015-05-09 Outpatient Rileypaola, [facility] [id number] 12:15:00 15:10:00 Indira S 18 2015-05-02 2015-05-02 Outpatient Jennifer, [facility] [id number] 13:18:00 19:05:00 Indira S 17 2015-04-11 2015-04-11 Outpatient Yovani [facility] [id number] 11:25:00 14:47:00 Gilmar Giordano 16 2015-03-30 2015-03-30 Outpatient Charito, [facility] [id number] 14:39:00 17:11:00 Isatu Ayala 2015-03-21 2015-03-24 Outpatient Richmond, [facility] [id number] 13:24:00 17:30:00 Catarino 14 Blaine 2015-03-11 2015-03-11 Outpatient Dick, [facility] [id number] 14:43:00 17:41:00 Habacuc 13 Breen 2015-03-05 2015-03-05 Outpatient Tata Rushing [facility] [id number] 00:43:00 05:21:00 Martell 12 2015-02-24 2015-02-25 Outpatient Dixon, [facility] [id number] 10:34:00 20:14:00 Enloe 11 2015-02-16 2015-02-18 Outpatient Thu, [facility] [id number] 15:36:00 16:00:00 Kalneerua 10 Mary Katedonna 2013-12-25 2013-12-25 Outpatient Dorothea, [facility] [id number] 11:37:00 14:52:00 Rishabh E 09 2013-12-22 2013-12-22 Outpatient Nba, [facility] [id number] 15:43:00 19:29:00 Jann 08 Jl 2013-12-16 2013-12-17 Outpatient Beth, [facility] [id number] 12:18:00 17:45:00 Alvarez 07 2013-11-07 2013-11-08 Outpatient Sakatya, [facility] [id number] 23:50:00 18:00:00 Dustin Results Test Description [...] STOOL 2017-01-19 Negative [facility] 19:21:00 *NA*(01/19/17 2:21 [place] PM) URINE AND STOOL 2017-01-19 Negative (01/19/17 Me morial 19:21:00 2:21 PM) [place] URINE AND STOOL 2017-01-19 Negative (01/19/17 Me morial 19:21:00 2:21 PM) [place] URINE AND STOOL 2017-01-19 Negative (01/19/17 Me morial 19:21:00 2:21 PM) [place] URINE AND STOOL 2017-01-19 1 [facility] 19:21:00 [place] URINE AND STOOL 2017-01-19 1 [facility] 19:21:00 [place] URINE AND STOOL 2017-01-19 7.0 [facility] 19:21:00 [place] URINE AND STOOL 2017-01-19 1.008 [facility] 19:21:00 [place] URINE AND STOOL 2017-01-19 Clear (01/19/17 2:21 [facility] 19:21:00 PM) [place] CARDIAC ENZYMES 2017-01-19 3.0 [facility] 18:07:00 [place] CARDIAC ENZYMES 2017-01-19 <0.02 [facility] 18:07:00 [place] CHEM PANEL 2017-01-19 231 [facility] 18:07:00 [place] CHEM PANEL 2017-01-19 9 [facility] 18:07:00 [facility] CHEM PANEL 2017-01-19 8.4 [facility] 18:07:00 [place] CHEM PANEL 2017-01-19 1.0 [facility] 18:07:00 [place] CHEM PANEL 2017-01-19 3.6 [facility] 18:07:00 [place] CHEM PANEL 2017-01-19 7 [facility] 18:07:00 [place] CHEM PANEL 2017-01-19 32 [facility] 18:07:00 [place] CHEM PANEL 2017-01-19 104 [facility] 18:07:00 [place] CHEM PANEL 2017-01-19 3.4 [facility] 18:07:00 [place] CHEM PANEL 2017-01-19 141 [facility] 18:07:00 [place] CHEM PANEL 2017-01-19 0.79 [facility] 18:07:00 [place] CHEM PANEL 2017-01-19 3.6 [facility] 18:07:00 [place] CHEM PANEL 2017-01-19 9.1 [facility] 18:07:00 [place] CHEM PANEL 2017-01-19 25 [facility] 18:07:00 [place] CHEM PANEL 2017-01-19 7.2 [facility] 18:07:00 [place] CHEM PANEL 2017-01-19 1.1 [facility] 18:07:00 [place] CHEM PANEL 2017-01-19 111 [facility] 18:07:00 [place] CHEM PANEL 2017-01-19 31 [facility] 18:07:00 [place] CHEM PANEL 2017-01-19 90 [facility] 18:07:00 [place] CHEM PANEL 2017-01-19 73 [facility] 18:07:00 [place] CHEM PANEL 2017-01-19 75 [facility] 18:07:00 [place] HEMATOLOGY 2017-01-19 18:07:00 Test Item Value Reference Range Interpretation Comme nts PTT (test code = PTT) 31.3 s 22.9-35.8 [facility] UdubmwgPHMAHGEWAG8408-42-03 18:07:008.5[facility]ann[facility]OLOG[facility] 2017-01-19 18:07:0042.0[facility] XvsdpjbCJZUOZKKWF3938-04-53 18:07:004.92[facility] IjdmwxxORYTWJGNUZ5291-73-79 18:07:0014.4[facility] RwanuewHGLFHBNCKM9076-64-65 18:07:0014.2[facility] KzdinykTGGMXVXVIW9273-10-56 18:07:94604Uvmgsxib [place] IFDKDGFGCU5553-83-34 18:07:0034.2[facility] HmsrgxfMAGASXIDRR5029-49-34 18:07:00 Test Item Value Reference Range Interpretation Comments MCH (test code = MCH) 29.2 pg 27.0-31.0 [facility] JsufxnwZDEXFLFRPV9690-06-80 18:07:0085.5[facility]annHEMATOLOGY 2017-01-19 18:07:007.7[facility] EyhqbajZELKUQFHKM1393-40-64 18:07:00 Test Item Value Reference Range Interpretation Comments PT (test code = PT) 13.7 s 12.0-14.7 [facility] QygpaanVSALVCSKOM0305-00-22 18:07:001.03[facility]annHEMATOLOGY 2017-01-19 18:07:000.3[facility] QmkerloKYQYVWSROV3274-78-85 18:07:0068.3[facility] OafnvcvCEWUAJRFDY4642-50-43 18:07:000.6[facility] RdrxuqbZQUHBCSZUR3673-51-74 18:07:005.3[facility] KgckyhgUNFDCAYXQJ5844-11-76 18:07:004.5[facility] [place] SULNTDBOPG1794-01-45 18:07:000.6[facility] BbefaxnCBEKDNUYPU0750-41-80 18:07:001.4 [facility] DmyynoaJIJMOVHRYF9354-57-92 18:07:007.8[facility]annHEMATOLOGY 2017-01-19 18:07:0018.8[facility]annDRUG RLGBPX0369-11-77 00:23:00Positive *ABN*(01/16/17 7:23 PM)[facility] IXRWRY9088-51-55 00:23:00Negative *NA*(01/16/17 7:23 PM)[facility] FVWFEK4107-15-95 00:23:00Negative *NA*(01/16/17 7:23 PM)[facility] EZXNVJ5668-07-32 00:23:00Negative *NA*(01/16/17 7:23 PM)[facility] XWLQGJ3331-97-69 00:23:00See Note (01/16/17 7:23 PM)[facility] AWNRJV1225-96-58 00:23:00Negative *NA*(01/16/17 7:23 PM)[facility] DYUAUS9116-49-58 00:23:00Negative *NA*(01/16/17 7:23 PM)[facility] TMMWCU8688-00-26 00:23:00Negative *NA*(01/16/17 7:23 PM)[facility] NNYUO5528-94-28 00:23:00Negative *NA*(01/16/17 7:23 PM)[facility] HKCUE5647-97-13 00:23:00Negative *NA*(01/16/17 7:23 PM)[facility] LNWTP4066-85-92 00:23:00Negative (01/16/17 7:23 PM)[facility] HQXWU2977-52-50 00:23:00Negative (01/16/17 7:23 PM)[facility] WPYXD7775-15-84 00:23:00Negative (01/16/17 7:23 PM)[facility] AFUWM3506-99-49 00:23:001.0[facility] PUYMI3215-06-13 00:23:00Negative (01/16/17 7:23 PM)[facility] JTQVZ3127-05-35 00:23:00Slight Cloudy (01/16/17 7:23 PM)[facility] DKGIW0137-23-54 00:23:00 Test Item Value Reference Range Interpretation Comments UA Spec Grav (test code = UA Spec 1.007 1 Grav) [facility] QNPKJ1814-70-54 00:23:00 Test Item Value Reference Range Interpretation Comments UA pH (test code = UA pH) 6.0 1 5.0-8.0 [facility] ISNEP3071-32-91 00:23:00Negative (01/16/17 7:23 PM) [facility] LMGMS2328-79-10 00:23:00Yellow *NA*(01/16/17 7:23 PM) [facility]annCARDIAC UGVEFWP2996-22-13 23:57:00<0.02[facility] CARDIAC XQDGDWG4743-40-58 23:57:002.0[facility] HermannCARDIAC VQLLGPM4564-35-34 23:57:08949Ettflyoq HermannCARDIAC CGUEUNX4102-44-01 23:57:001.0[facility] CHEM DVHAN9812-42-63 23:57:0073[facility] HermannCHEM ZFHPI6165-79-84 23:57:0029 [facility]annCHEM JZBZJ6562-30-42 23:57:22371Gchpflcn HermannCHEM PANEL 2017-01-16 23:57:99267Auwyxnld HermannCHEM OBPFC7745-40-56 23:57:0015[facility] HermannCHEM ICYFQ5119-99-83 23:57:0011.0[facility] HermannCHEM UORXQ9915-26-66 23:57:0016[facility] HermannCHEM KWNCC6231-21-71 23:57:009.4[facility] HermannCHEM WFIYO0512-08-32 23:57:000.94[facility] HermannCHEM TMGCT3271-09-17 23:57:21830 [facility]annCHEM PFBRY9753-06-94 23:57:004.0[facility] HermannCHEM PANEL 2017-01-16 23:57:003.6[facility] HermannCHEM PZXBT8602-36-27 23:57:0024[facility] HermannCHEM WJRTK9253-00-36 23:57:000.6[facility] HermannCHEM GPIRZ6888-65-24 23:57:60992Zxtlolzh HermannCHEM HWTBR6009-58-96 23:57:0029[facility] HermannCHEM BCLSK7905-78-59 23:57:000.9[facility] HermannCHEM LIEQH2466-37-58 23:57:003.9 [facility]annCHEM COCTX1664-69-62 23:57:007.5[facility] HermannHEMATOLOGY 2017-01-16 23:57:0014.6[facility] QfhkclhILOFKROBJI0893-36-40 23:57:0042.7[facility] UcuzhdeRTJJFLIDGC1621-66-97 23:57:0034.2[facility] SpotxcmEXGZKZTRWK2009-44-14 23:57:0085.3[facility] TetpfkpKDXRVQDNFP5655-29-37 23:57:00 Test Item Value Reference Range Interpretation Comments MCH (test code = MCH) 29.2 pg 27.0-31.0 [facility] TwqykiuRCKHHYNIKM2694-79-57 23:57:0014.3[facility] HermannHEMATOLOGY 2017-01-16 23:57:65434Iihxofjb QpfuownOFJMYPCHVC1419-80-49 23:57:008.0[facility] VagjmrtNVHNZFRBFT5932-05-41 23:57:006.6[facility] JfyrnunRHZVKWLVHN1996-89-19 23:57:005.00[facility] RqycpdlQGCENMJTPR9656-85-88 23:57:000.8[facility] IIVATYRFOJ8184-90-04 23:57:004.0[facility] HsuemonCBGAIMGQLV8600-79-16 23:57:000.5 [facility] HuslnalNVDUDDSEYW5692-51-34 23:57:000.1[facility] HermannHEMATOLOGY 2017-01-16 23:57:001.8[facility] MuzggbbXKZKBRLHXF2558-95-64 23:57:000.2[facility] PdhugrpQULGPYCRGW0552-88-27 23:57:0060.6[facility] FvmscezNITZCTBNRL8526-91-70 23:57:008.3[facility] PeozzkuLBDZIBLANL0438-99-64 23:57:003.5[facility] NBTNHSFCHW1565-25-90 23:57:0026.8[facility]annUR[facility] AND GYZFJ3594-77-21 02:18:00Negative *NA*(11/28/16 9:18 PM)[facility] ACWPJ0244-01-27 02:18:00Negative (11/28/16 9:18 PM)[facility] GCDYP2871-33-57 02:18:001.0[facility] NPBHR9271-90-02 02:18:00Negative (11/28/16 9:18 PM)[facility] SGKPQ3609-21-97 02:18:00Negative *NA*(11/28/16 9:18 PM)[facility] AKBUN8517-25-29 02:18:00Moderate *ABN*(11/28/16 9:18 PM)[facility] SPJBL9022-34-87 02:18:00Yellow *NA*(11/28/16 9:18 PM)[facility] NNVID1346-36-44 02:18:00 Test Item Value Reference Range Interpretation Comments UA pH (test code = UA pH) 6.0 1 5.0-8.0 [facility] QBOHJ2148-42-66 02:18:00Negative (11/28/16 9:18 PM) [facility] MNSYH2084-35-97 02:18:00Negative (11/28/16 9:18 PM) [facility] ORDRW6102-57-77 02:18:00<=1.005 *NA*(11/28/16 9:18 PM)[facility] HBTIE3844-70-22 02:18:00Clear (11/28/16 9:18 PM) [facility]annCARDIAC FLZNKJE6885-99-99 01:37:00<0.02[facility] CARDIAC SHWBPYU0496-70-77 01:37:001.3[facility] HermannCARDIAC AHXTBHH2200-97-76 01:37:0089[facility]annCARDIAC DRIRKTA5690-61-72 01:37:001.5[facility] CHEM WPNPW6470-92-70 01:37:003.9[facility] HermannCHEM ZAUPE2476-57-92 01:37:0050 [facility]annCHEM GJKVV9115-69-36 01:37:000.9[facility] HermannCHEM PANEL 2016-11-29 01:37:0024[facility] HermannCHEM FCUWB2425-20-34 01:37:003.7[facility] HermannCHEM EHVBV9225-50-51 01:37:0089[facility] HermannCHEM SZSKP0983-69-45 01:37:67537Dfppwttt HermannCHEM EKJFJ4685-01-34 01:37:0010[facility] HermannCHEM LRACH1289-43-82 01:37:001.28[facility] HermannCHEM SIOMJ3139-62-05 01:37:0030 [facility] HermannCHEM GTURN1205-12-78 01:37:36564Rilizzng HermannCHEM PANEL 2016-11-29 01:37:009.5[facility] HermannCHEM VVPHW5124-65-83 01:37:009.5[facility] HermannCHEM HDRTR7791-73-95 01:37:008[facility] HermannCHEM YSVFP9586-09-18 01:37:000.7[facility] HermannCHEM WIWWX7689-60-58 01:37:86511Wwhalcki HermannCHEM HTDEX2779-98-05 01:37:003.5[facility] HermannCHEM JXMIZ9480-00-60 01:37:007.6 [facility] HermannCHEM QHFVC9560-17-21 01:37:0014[facility]annHEMATOLOGY 2016-11-29 01:10:0033.4[facility] KgvgkpkLJJYSRKYKU2679-11-48 01:10:08399Nuxorqhw RccvjxpNYUIAQGBTE4781-06-97 01:10:0014.7[facility] YmlsyssEICKPPCKKL7501-56-59 01:10:008.1[facility] AepgfhlBJEGLTPIQE8828-98-05 01:10:005.34[facility] BQGBEPIMMU0153-29-79 01:10:0015.5[facility] BmycvxmUPXBCIJLIR1419-64-95 01:10:00 87.0[facility] XvwpqpcHMIALYJFVO9379-18-69 01:10:0046.4[facility]annHEMATOLOGY 2016-11-29 01:10:00 Test Item Value Reference Range Interpretation Comments MCH (test code = MCH) 29.1 pg 27.0-31.0 [facility] RidhbdgESFTFZVSPM5208-84-85 01:10:008.0[facility]annHEMATOLOGY 2016-11-29 01:10:000.1[facility] OhnrmvkUEZITLZLSV5979-69-18 01:10:002.0[facility] QzbcckkTOITAGDBOV9984-34-84 01:10:005.1[facility] UkoaiubBBNSJUAZON7507-72-38 01:10:000.2[facility] EroygcnZKPDNPVUBE4569-93-85 01:10:000.8[facility] WHBMBEAZWY8953-42-34 01:10:0063.2[facility] OfiqnqgQPTMYMEOLQ7265-26-76 01:10:00 24.3[facility] MqhnckoARIPSYWMSI2460-59-78 01:10:002.1[facility]annHEMATOLOGY 2016-11-29 01:10:009.6[facility] YnbgbvzQZYVONVQKZ5912-16-15 01:10:000.8[facility] HermannVIRAL - XGPRXGQC6930-16-51 01:10:00Negative (11/28/16 8:10 PM)[facility] HermannVIRAL - DVRFUJOF0901-20-61 01:10:00Negative (11/28/16 8:10 PM)[facility]annCARDIAC FPVLLIZ0226-29-95 01:15:001.3[facility] HermannCARDIAC ENZYMES 2016-11-07 01:15:00<0.02[facility]annCARDIAC EPSRNDD5319-45-18 01:15:001.9 [facility]annCARDIAC SZGSJEV4661-95-24 01:15:67096Elduglok HermannCHEM PANEL 2016-11-07 01:15:0077[facility] HermannCHEM TLVFQ6920-61-43 01:15:0017[facility] HermannCHEM ZYQZA2427-51-44 01:15:006.8[facility] HermannCHEM FYIQD5205-80-12 01:15:008.5[facility] HermannCHEM KZPFH4584-30-44 01:15:000.8[facility] HermannCHEM UCPBZ8562-78-15 01:15:12175Kwcawxvn HermannCHEM CXDJX3038-42-56 01:15:0031 [facility]annCHEM LLFQJ4127-31-04 01:15:003.1[facility] HermannCHEM PANEL 2016-11-07 01:15:000.90[facility] HermannCHEM YOZHK4432-76-02 01:15:41158Qqasujkr HermannCHEM XYLJO3152-88-57 01:15:0012[facility] HermannCHEM PDOIS8688-82-45 01:15:0096[facility] HermannCHEM HJSOT7954-69-83 01:15:003.3[facility] HermannCHEM IVPCS3990-16-16 01:15:0076[facility] HermannCHEM NBBWV3115-00-24 01:15:0020 [facility]annCHEM ZUUDN7159-26-78 01:15:003.5[facility] HermannCHEM PANEL 2016-11-07 01:15:000.9[facility] HermannCHEM YCPZW2859-60-02 01:15:0010.1[facility] HermannCHEM OCULI5652-29-00 01:15:0013[facility] NzvaelqNTGVASDUFX9469-69-81 01:15:002.8[facility] TucvflyGCYOXAPVWJ6682-06-79 01:15:000.2[facility] XLWBONRDEL7333-02-46 01:15:000.1[facility] XdsaygiNIPUBRIMMY9883-56-56 01:15:000.7 [facility] HivjgryAJDSTNDYLD0158-27-21 01:15:000.8[facility] HermannHEMATOLOGY 2016-11-07 01:15:004.5[facility] LtrtbstCCUWWDLAYO6044-41-66 01:15:002.2[facility] IreprhgPYPPTHTBXW0687-54-01 01:15:0058.5[facility] YkxendvUASXDNFXCC9763-38-35 01:15:0028.8[facility] EfwxxfkODRWPFLZIF9494-09-31 01:15:009.1[facility] LBFDIKXEVZ8153-54-72 01:15:85677Xajtuwob AxxsivpUPXIQLMBAI0423-86-50 01:15:00 14.3[facility] QscyhpmHTZTNLLHOZ5975-83-00 01:15:008.1[facility] HermannHEMATOLOGY 2016-11-07 01:15:007.7[facility] AifxtgwKQMBSLQWTC5157-99-34 01:15:0013.1[facility] TyxylpxZBUTRWXHXM6370-76-86 01:15:004.48[facility] QfvumqmTVLMTSAGTB7593-42-99 01:15:00 Test Item Value Reference Range Interpretation Comments MCH (test code = MCH) 29.3 pg 27.0-31.0 [facility] SzmfnrrCMPUZVBDBJ0727-73-67 01:15:0039.1[facility] HermannHEMATOLOGY 2016-11-07 01:15:0087.3[facility] NkafzoyJFOOOYMSVO2922-92-18 01:15:0033.6[facility] HermannDRUG KHFYVD3716-39-41 11:24:00Negative *NA*(10/11/16 5:24 AM)[facility]annDR[facility] QFADOE6003-53-58 11:24:00Negative *NA*(10/11/16 5:24 AM)[facility]annDR[facility] OLFMSJ8961-67-04 11:24:00Negative *NA*(10/11/16 5:24 AM)[facility]annDR[facility] SPLYLV4320-96-07 11:24:00Negative *NA*(10/11/16 5:24 AM)[facility]annDR[facility] ZWGXIE6402-64-78 11:24:00Positive *ABN*(10/11/16 5:24 AM)[facility]annDR[facility] ITXFLF7762-78-48 11:24:00See Note (10/11/16 5:24 AM)[facility] DRUG PZSJOJ8624-83-85 11:24:00Negative *NA*(10/11/16 5:24 AM)[facility]annDR[facility] QMNJCK2716-65-61 11:24:00Negative *NA*(10/11/16 5:24 AM)[facility]annCARDIAC CYDEVAX6292-40-74 09:58:00<0.02[facility] AqfhitqNUUWSZIEMV2788-14-43 09:58:00 0.4[facility] OohgpvhPQROZTLVJU5862-68-08 09:58:000.1[facility]annHEMATOLOGY 2016-10-11 09:58:006.3[facility] NknyqufZUBSLSGBAI0975-15-80 09:58:001.0[facility] BigtlgcANHFAUFLIL3494-85-30 09:58:002.7[facility] YoeczpcSJBIVELWXM4888-79-39 09:58:002.1[facility] VsshkvuGXXQYBYKRN0538-46-70 09:58:000.6[facility] XGTZQXYEHP1009-50-96 09:58:0036.3[facility] SnmgjcbGBPCIJEUOV6205-15-34 09:58:00 46.0[facility] YtvdydaBOVCXPYQIH6389-25-61 09:58:0010.4[facility] HermannHEMATOLOGY 2016-10-11 09:58:008.7[facility] LdzfdxxSEOVLREMSU3669-94-19 09:58:13712Brwmigbs LqvwnnnFVUQHBXSSK7497-60-01 09:58:00 Test Item Value Reference Range Interpretation Comments MCH (test code = MCH) 29.3 pg 27.0-31.0 [facility] IoohdmfYWAGDJRTVP0774-52-98 09:58:0087.2[facility]annHEMATOLOGY 2016-10-11 09:58:0014.4[facility] UuwahkxBSKVTFJANX4953-29-85 09:58:0033.6[facility] JupowszPOXLWOTBXY5644-94-07 09:58:0013.1[facility] XursdryDGLACUZNHG0528-55-27 09:58:004.45[facility] EeeatgrUJNFDFFIJW8392-75-45 09:58:0038.8[facility] LQPGJIOZXD4635-46-69 09:58:005.8[facility] IflfjchSMVAFX3608-33-34 09:58:002.84 [facility] ZmvwumrMYOZWE8441-61-10 09:58:0014[facility] UnthimgEVHFAQ7338-71-46 09:58:0087[facility] BjjxejhZPCBFR4003-59-46 09:58:0071[facility] HermannLIPIDS 2016-10-11 09:58:20956Hmiatqaz HyhshrhJFQSDK7356-32-99 09:58:0055[facility]annCARDIAC HCEXYMD7779-19-12 00:00:00<0.02[facility]annCARDIAC ENZYMES 2016-10-10 19:10:33<0.02[facility] HermannCHEM AUIJM2332-40-09 19:10:3392 [facility] HermannCHEM MSSUN7526-11-01 19:10:338[facility] HermannCHEM PANEL 2016-10-10 19:10:330.78[facility] HermannCHEM VBUWC2307-49-60 19:10:34549Tsysarbi HermannCHEM NRRQO3121-53-13 19:10:333.2[facility]annCHEM ZWVBC0273-34-49 19:10:339.3[facility]annCHEM MWBHF8117-42-96 19:10:3331[facility]annCHEM FJSZY0144-19-65 19:10:63249Mwifnluf HermannCHEM EUZVY7176-70-77 19:10:96183 [facility]annCHEM RMGER2109-00-43 19:10:337.2[facility]annHEMATOLOGY 2016-10-10 19:10:3333.8[facility] HtneuhqGTALTWDFBS0624-18-31 19:10:3314.2[facility] AdqcqixJWIRJQIOUV4592-85-53 19:10:33 Test Item Value Reference Range Interpretation Comments MCH (test code = MCH) 29.4 pg 27.0-31.0 [facility] VgfssnnCBNLHRNIGK5143-27-53 19:10:3387.0[facility] HermannHEMATOLOGY 2016-10-10 19:10:3313.5[facility] UkwygajTGZLSDWFXK6674-72-51 19:10:3339.8[facility] OeuqadgANJOWTZITY6879-50-05 19:10:27741Yfmdfevu AdkomcmRSCJJBSHXO3442-54-44 19:10:338.7[facility] GwbfzvbOZJBKDGJXY5596-19-50 19:10:336.6[facility] RQDPFOBEMZ9442-40-12 19:10:334.58[facility] TtcobvhJASARSVNHB0956-14-19 19:10:33 1.8[facility] GouzspdOMOXVHUQRD8863-81-93 19:10:330.6[facility]annHEMATOLOGY 2016-10-10 19:10:330.3[facility] ViicabiVHGVOXEIEC3306-03-21 19:10:330.6[facility] UpguptjUHHXEEDJGA1189-13-63 19:10:333.9[facility] SplvifnSDAKYEZKBO2022-52-95 19:10:339.0[facility] AivetzkUFIDPFOGWF4062-10-55 19:10:334.1[facility] WLXQEAWMWL0610-88-98 19:10:3359.5[facility] HlxloipQSPLLLDFXW3006-85-70 19:10:33 26.8[facility]annCARDIAC EURFGWG1371-14-79 04:07:00<0.02[facility] BYHHXYKIAFNX6616-89-69 04:07:0013.5[facility] NrvmrxmDQIQQVJXFPHA6368-60-05 04:07:0079[facility] LsxnubyXWETEGQIQPXT7939-82-41 04:07:000.89[facility] JCKFCJGJEZCD8849-38-89 04:07:009[facility] EwowrkkKMSTXOHXSDUI6819-23-13 04:07:00 72[facility] WgufrozYDKEBEYSZNXZ8157-57-80 04:07:18809Mtbcteap HermannELECTROLYTES 2016-04-14 04:07:0025[facility] OnoqlcwTQXIHNZBEUWI3301-55-10 04:07:008.9[facility] EtvnatlWVRKTUQLYLQI1917-69-08 04:07:81466Ztixqial ZqzflyvEYJQQAWKSOQQ4096-14-31 04:07:003.5[facility] OavwaiyKCQSFZLGAC6838-33-31 04:07:09934Lkgkbbgd Maciej GUZLKJIYTQ2129-72-71 04:07:008.5[facility] RbooegaFRRBFIQHTV1457-76-50 04:07:00 33.5[facility] KjqeagwGWOVGZYCWQ8191-59-76 04:07:00 Test Item Value Reference Range Interpretation Comments MCH (test code = MCH) 28.7 pg 27.0-31.0 [facility] JydznkpIISCJFNJDV6185-55-32 04:07:0015.0[facility] HermannHEMATOLOGY 2016-04-14 04:07:0038.3[facility] GleygopRKVYSENTJD8930-39-20 04:07:0085.6[facility] FrxsbwoWTREZWYZDK6807-30-27 04:07:0012.9[facility] DlnqvynQDOBTIFCNK3576-21-64 04:07:004.48[facility] DlwnxasKPIBNZFLQO2631-05-91 04:07:005.6[facility] VACVMLPKWX0528-99-03 04:07:000.1[facility] KzxmonlNNFASPQEMT9466-28-89 04:07:002.2 [facility] YzxalcnPEJLNWWMMJ5698-79-55 04:07:000.3[facility] HermannHEMATOLOGY 2016-04-14 04:07:000.5[facility] VvjlijhUNFTXESXXC1669-79-97 04:07:006.1[facility] IvuniasWLOOZTYWQL4739-53-04 04:07:001.1[facility] RrluqduYQPLVRXCZH5759-20-26 04:07:002.5[facility] LqfspoiUJOSJGLXIP7443-25-89 04:07:0038.8[facility] UYSCBKVJUF1818-18-93 04:07:009.2[facility] LvuwjoaXTRIPDEQXY0773-27-47 04:07:00 44.8[facility] NbidbkwLGBQUEEASN1410-42-52 04:07:008[facility] HermannTOXICOLOGY 2016-04-14 04:07:000.008[facility]annCARDIAC YNYNCYY0361-94-58 11:47:00 <0.02[facility] PpceiqiKXVBQR7386-55-96 11:47:003.39[facility] HermannLIPIDS 2016-03-12 11:47:0018[facility] RjzhwikXCWTHA0427-87-48 11:47:0073[facility] HHRMME1021-50-84 11:47:0090[facility] DsvahguVJTUQT6925-04-21 11:47:41581Kclaexek QmliibvPVUZYE0871-45-89 11:47:0038[facility]annSPECIAL XQGWGITIK4910-91-84 11:47:005.9[facility]annCARDIAC BMSQQDU7459-00-26 02:33:0081[facility] CARDIAC QWPEWPX8070-49-92 02:33:000.02[facility]annCARDIAC YFMMODF3108-05-12 02:33:001.6[facility]annCARDIAC NXCACPY2812-11-01 02:33:001.3[facility] YMGIKVMMUH3132-19-82 21:03:00 Test Item Value Reference Range Interpretation Comments PROTIME (test code = PROTIME) 14.0 s 12.0-14.7 [facility] AziqifcACYCSMJWLT3789-51-56 21:03:001.05[facility]annHEMATOLOGY 2016-03-11 21:03:00 Test Item Value Reference Range Interpretation Comments aPTT (test code = aPTT) 38.7 s 22.9-35.8 [facility] NmboeomOMNKBVKGXC0935-58-08 21:03:000.49[facility]annCARDIAC ENZYMES 2016-03-11 20:14:001.6[facility]annCARDIAC OGUMZDF0025-94-88 20:14:001.3 [facility]annCARDIAC AMSYDSD1345-82-78 20:14:00<0.02[facility] CARDIAC TKUSVOA0852-73-00 20:14:0083[facility]annCARDIAC MQBRSSK7676-97-65 20:14:0050[facility]annCHEM AWFPN0685-76-22 20:14:47301Ganjhnek HermannCHEM HMADF7843-52-61 20:14:27368Riqttrdb HermannCHEM KFZQM6265-12-68 20:14:002.8 [facility]annCHEM TMTSN3664-62-94 20:14:001.2[facility] HermannCHEM PANEL 2016-03-11 20:14:0015[facility] HermannCHEM EKGLG3568-64-51 20:14:0010.4[facility] HermannCHEM LHPUQ9235-75-58 20:14:0014[facility] HermannCHEM CAOCC3510-17-48 20:14:006.1[facility]annCHEM IEWEH5215-58-52 20:14:000.5[facility]annCHEM QMIHR7222-18-45 20:14:007.7[facility] HermannCHEM JOUZM6998-04-77 20:14:0026 [facility]annCHEM NMHGD5678-48-12 20:14:09856Ivggkgzb HermannCHEM PANEL 2016-03-11 20:14:003.4[facility] HermannCHEM QBKLT1740-47-13 20:14:91436Xvfuztcx HermannCHEM KRYCB2097-66-48 20:14:000.61[facility]annCHEM YECPC5686-04-43 20:14:009[facility]annCHEM HPTAY5794-08-83 20:14:0076[facility] HermannCHEM LAISU4470-62-63 20:14:0088[facility] HermannCHEM GUOHH5492-01-19 20:14:003.3 [facility]annCHEM FRIKX9485-34-92 20:14:0015[facility]annHEMATOLOGY 2016-03-11 20:14:001.8[facility] WccbcvlEJEAMQSCSR7251-91-34 20:14:000.5[facility] LlcvwoqOMBHMMDJEU6498-26-75 20:14:001.0[facility] OopojzvFQEHHUKKWY8229-59-57 20:14:004.1[facility] XmvwlblTMUMYRUKUS2614-98-42 20:14:000.2[facility] PQBSDOXKBX3296-96-11 20:14:000.1[facility] XzfpgyvUADURGVLMF3199-26-81 20:14:00 61.4[facility] HeujujgJJRCNOSRLC8815-35-75 20:14:003.5[facility] HermannHEMATOLOGY 2016-03-11 20:14:0026.6[facility] LornijwKUTLBIEGKK5586-09-10 20:14:007.5[facility] VgkmsieCXSBPSDXJK0686-64-29 20:14:006.7[facility] OcntdykJOYIAMYSWZ1057-16-30 20:14:0012.2[facility] HmlinvxGFXJXPTEJD3796-66-77 20:14:004.26[facility] MXMCFXZKII2791-47-88 20:14:00 Test Item Value Reference Range Interpretation Comments MCH (test code = MCH) 28.7 pg 27.0-31.0 [facility] OhrxgerPBFYDRHWEQ2055-18-00 20:14:0086.0[facility] HermannHEMATOLOGY 2016-03-11 20:14:0014.9[facility] RprhunxMOQEWGQYHK0378-55-21 20:14:0033.3[facility] XgunitkJATWXYGRUV3980-60-70 20:14:0036.6[facility] VmrbyuoHAJSBANNXY2423-59-02 20:14:008.7[facility] DpnpyzoHFYNUFASFB2432-62-40 20:14:69292Apvpfoql HermannURINE AND KVXDG0313-31-35 20:14:00Negative (03/11/16 3:14 PM)[facility] SOOMQ7392-54-58 20:14:00Negative (03/11/16 3:14 PM)[facility] FLJOC7097-98-53 20:14:00Negative (03/11/16 3:14 PM)[facility] YBPPI2779-89-64 20:14:000.2[facility] AKDBF0711-42-23 20:14:00 Clear (03/11/16 3:14 PM)[facility] NYOWF9385-55-08 20:14:00 Negative (03/11/16 3:14 PM)[facility] JIMTQ3593-17-29 20:14:00 <=1.005 *NA*(03/11/16 3:14 PM)[facility] HQGAX3228-46-81 20:14:00 Test Item Value Reference Range Interpretation Comments UA pH (test code = UA pH) 6.5 1 5.0-8.0 [facility] IYPNG1982-36-97 20:14:00Negative *NA*(03/11/16 3:14 PM) [facility] SOBVH5319-14-56 20:14:00Negative *NA*(03/11/16 3:14 PM) [facility] WZWRY1507-75-64 20:14:00Negative (03/11/16 3:14 PM) [facility] DXWSZ9153-48-63 20:14:00Yellow *NA*(03/11/16 3:14 PM) [facility] RJOSU1792-37-90 00:22:00Yellow *NA*(02/29/16 7:22 PM) [facility] URCCZ4077-78-42 00:22:00 Test Item Value Reference Range Interpretation Comments UA pH (test code = UA pH) 6.0 1 5.0-8.0 [facility] NQKXR7089-92-08 00:22:00Clear (02/29/16 7:22 PM)[facility] ADQNK1055-50-11 00:22:00 Test Item Value Reference Range Interpretation Comments UA Spec Grav (test code = UA Spec 1.015 1 Grav) [facility] VEFWX4153-79-39 00:22:00Trace *ABN*(02/29/16 7:22 PM) [facility] QTWSL3738-42-74 00:22:00None Seen (02/29/16 7:22 PM) [facility] FCPRT9916-98-48 00:22:00Negative (02/29/16 7:22 PM) [facility] XBYGR0106-55-19 00:22:001.0[facility] XKLPC2793-94-98 00:22:00Negative (02/29/16 7:22 PM)[facility] STOOL 2016-03-01 00:22:00Negative (02/29/16 7:22 PM)[facility] STOOL 2016-03-01 00:22:00Negative *NA*(02/29/16 7:22 PM)[facility] STOOL 2016-03-01 00:22:00Negative *NA*(02/29/16 7:22 PM)[facility] STOOL 2016-03-01 00:22:00Negative (02/29/16 7:22 PM)[facility]annCARDIAC ENZYMES 2016-02-29 23:14:00<0.02[facility]annCARDIAC BINQKTI1229-70-72 23:14:001.1 [facility]annCARDIAC HHKXUHV8585-00-64 23:14:39685Bakstnvn HermannCARDIAC IIIRDDX7673-37-30 23:14:007[facility]annCARDIAC DSBLBDX7050-91-51 23:14:000.8 [facility]annCHEM DDUHZ0057-25-60 23:14:0080[facility]annCHEM PANEL 2016-02-29 23:14:0013[facility] HermannCHEM UAMXV2636-17-91 23:14:001.0[facility]annCHEM YXLJJ1106-18-11 23:14:003.6[facility] HermannCHEM MZWNL4042-32-68 23:14:009[facility]annCHEM BOPCL0841-75-70 23:14:007.1[facility]annCHEM WOAIO2621-80-15 23:14:0010.0[facility] HermannCHEM PIUZK0002-93-13 23:14:18622 [facility]annCHEM QENHN2762-52-34 23:14:003.0[facility] HermannCHEM PANEL 2016-02-29 23:14:000.88[facility] HermannCHEM FWDZF2611-18-13 23:14:0030[facility]annCHEM ZOSVG8282-54-37 23:14:000.6[facility] HermannCHEM EBMIT5606-89-31 23:14:008.7[facility] HermannCHEM OIMEQ6067-24-76 23:14:01333Xoghlpwc HermannCHEM HHLGZ3900-35-42 23:14:0015[facility]annCHEM DUNLT3698-47-58 23:14:0088 [facility]annCHEM NYXKJ1673-30-64 23:14:003.5[facility]annCHEM PANEL 2016-02-29 23:14:008[facility]annCHEM EDTDQ2467-56-04 23:14:0089[facility] VywoodvVIMMRJKKSM5835-70-96 23:14:00 Test Item Value Reference Range Interpretation Comments PROTIME (test code = PROTIME) 13.2 s 12.0-14.7 [facility] EwsowgzQWSDNUIPUQ1362-34-22 23:14:000.97[facility]annHEMATOLOGY 2016-02-29 23:14:0015.3[facility] YhkxwjgOUZTUEDSMY9610-30-09 23:14:0032.9[facility] DvnxohyYROHDWQEJI3783-33-57 23:14:0043.8[facility] TnpsxqeRTBQWOUANP9016-95-82 23:14:00 Test Item Value Reference Range Interpretation Comments MCH (test code = MCH) 28.1 pg 27.0-31.0 [facility] XjxbzmnQXUVTGWYCI4001-09-86 23:14:0085.5[facility] HermannHEMATOLOGY 2016-02-29 23:14:005.3[facility] BrizhlyIYEKWLGPYJ4407-46-45 23:14:0014.4[facility] ZywhfhfWAJOFRHBIB6369-17-93 23:14:005.12[facility] UwhrcyzKXCKVJEGXP2953-14-82 23:14:52693Pshrejrg SavcdoaXFOCTVLTYK5398-38-77 23:14:008.1[facility] IAZHAOQESW8900-43-12 23:14:0057.2[facility] BikeagxDLWJLGOUGP3542-55-05 23:14:00 11.7[facility] WujohjpIZCOFXQAGO8690-12-09 23:14:0024.1[facility] HermannHEMATOLOGY 2016-02-29 23:14:000.1[facility] TbgclqmBODZSJBXRT2125-10-38 23:14:000.6[facility] KrdhiieMUQRTQISWS1078-12-84 23:14:001.3[facility] GeuykxlPTNORFNNCQ1768-97-16 23:14:000.3[facility] NzepuyxLIMIMDIFYK3417-87-96 23:14:003.0[facility] VTYZACDNHO5040-62-32 23:14:005.9[facility] NzblimpTIBPERKVVH5682-61-58 23:14:001.1 [facility] HermannCARDIAC OUBIYRO6671-63-91 17:04:000.7[facility]annCARDIAC EYZUHHN5662-68-37 17:04:000.7[facility]annCARDIAC IHGTUTP7486-70-42 17:04:00 <0.02[facility]annCARDIAC WASYBBK1557-62-07 17:04:0097[facility] OJOWDXMKCKMK0445-51-91 17:04:0018.3[facility] ZhuwsjmFLYKQBFEOFIL9261-10-78 17:04:0078[facility] WzpirfhJIXNEFPMENZX0797-22-98 17:04:38651Rtmhllmx Maciej DZEHGHGUHFCD1273-06-22 17:04:0010[facility] TmettbkXZSLUXDMSMFJ1174-81-32 17:04:00 0.90[facility] CndomruUFTPUUKDNASO4011-17-61 17:04:0020[facility] RXIVVOPJYQMP8278-00-10 17:04:009.4[facility] GghrjuoVQZORFHKPABF2158-94-37 17:04:004.3[facility] DahptrgZBZFVVVSNSLR1147-30-69 17:04:40785Xcxigbno Maciej UBHOROFBUISA4547-75-49 17:04:39886Nvsvwspq GyxozreEHFWTRPCTT8727-15-61 17:04:00 9.6[facility] LktflafIHZCWDEFDK0200-84-44 17:04:0041.4[facility] HermannHEMATOLOGY 2015-09-04 17:04:0013.1[facility] UlkeqorSUZJETZRWQ4578-07-19 17:04:004.74[facility] EvzesyiYSLNZACUNB8197-03-45 17:04:0087.3[facility] QbzmftjBIOIWXQVBI7501-57-80 17:04:0031.5[facility] SeqzdmrJEJFTZCZLD2781-06-72 17:04:00 Test Item Value Reference Range Interpretation Comments MCH (test code = MCH) 27.5 pg 27.0-31.0 [facility] FwwxczhPYKAWANMAS9045-42-81 17:04:008.7[facility] HermannHEMATOLOGY 2015-09-04 17:04:58084Svzgeyqq TpvztlwBCMYBIRIJP1569-50-02 17:04:0014.4[facility] HmtbcrzCEMXZNBPWK4729-18-10 17:04:000.1[facility] UiegbwvTMEJSZDKHR2715-56-86 17:04:000.5[facility] OcgkdtqIHZIBGTGIK2875-99-48 17:04:00Normal (09/04/15 11:04 AM) [facility] FuuewalSDHYGGQNBH0385-41-82 17:04:00Normal (09/04/15 11:04 AM)[facility] LnufikeXYTPYGRNBZ1871-83-77 17:04:0093.3[facility] TalydbpEATNMXLTUY3531-70-71 17:04:000.2[facility] AvdomncHRTZXEWGYO2591-84-77 17:04:005.4[facility] SVMPJMKHDZ6938-22-42 17:04:001.1[facility] WhfsdsuMWWVZKMFQY6473-24-64 17:04:009.0 [facility] SdgpkdeIQZFHD0557-65-39 17:04:0014[facility] YagtjhpKAUWFG0053-45-36 17:04:86962Bvsmjnci ZcbtxtnWTEGYI0235-78-09 17:04:0054[facility] HermannLIPIDS 2015-09-04 17:04:0071[facility] WrzawyoKBAWNH6846-07-06 17:04:05046Qmzzcunx XzwyrcvSBXGYP1013-63-66 17:04:003.67[facility] HermannCARDIAC DCSPWTV1461-74-33 10:50:000.6[facility]annCARDIAC CWDKKKY5197-78-08 10:50:000.6[facility] CARDIAC TGIMLGQ1385-94-95 10:50:00<0.02[facility] HermannCARDIAC ENZYMES 2015-09-04 10:50:82567Aoufohpx HermannCARDIAC WBDYUWO4412-16-30 04:33:58236 [facility]annCARDIAC VDMAZPR8133-73-40 04:33:00<0.02[facility] CARDIAC JRTXRGH9926-26-57 04:33:000.8[facility]annCARDIAC MRXQMYZ4857-69-55 04:33:000.7[facility] HermannCHEM EFBUQ8728-78-46 04:33:0087[facility] HermannCHEM RHLVH1319-11-72 04:33:008[facility] HermannCHEM JCKSQ5574-13-02 04:33:000.82 [facility]annCHEM BKIGV4348-87-01 04:33:69749Okbddqyy HermannCHEM PANEL 2015-09-04 04:33:83228Bdzcbmpk HermannCHEM UAQCX2305-51-86 04:33:003.9[facility] HermannCHEM LGKUJ0897-28-31 04:33:02979Scovfbhi HermannCHEM ITCVG3780-54-69 04:33:0013.9[facility] HermannCHEM ZJAJX9383-88-32 04:33:009.2[facility] HermannCHEM SYPTE3621-32-55 04:33:0025[facility] MnshktlWHQZMVIUCM8678-53-53 04:33:007.4 [facility] GbtdughDVTXRWEQAA4827-23-74 04:33:0012.4[facility] HermannHEMATOLOGY 2015-09-04 04:33:004.57[facility] WtlrbjtQDLKNQZRBL4110-42-14 04:33:0039.4[facility] MrkqyocFYONUWOLJO1789-53-01 04:33:0086.1[facility] RryxnqnNCVGGLLXDA6119-66-13 04:33:0014.7[facility] IelousaOKKLJTCRQU0835-27-87 04:33:0031.6[facility] QCNDSLRVWI1711-19-68 04:33:00 Test Item Value Reference Range Interpretation Comments MCH (test code = MCH) 27.2 pg 27.0-31.0 [facility] YgnxylvSGIYXGGSZA6247-12-30 04:33:008.3[facility] HermannHEMATOLOGY 2015-09-04 04:33:68696Evinspdu EztafrzDTCTMNGAKR1392-56-67 04:33:005.5[facility] VlfzufjNDDENFVJPR2597-06-52 04:33:006.5[facility] YplhlodPYTWHWXSNP0154-37-50 04:33:0031.7[facility] GizjjetDLDDSINKWO9651-39-98 04:33:0055.0[facility] RWBKFLKXTP4177-13-49 04:33:000.5[facility] TocrxbwIBMMTETJEZ2309-12-01 04:33:002.3 [facility] AmtzltaCEBVLCWGZA2579-29-27 04:33:004.0[facility] HermannHEMATOLOGY 2015-09-04 04:33:001.3[facility] TiwbouyIHLJYHLLRP1244-65-56 04:33:000.1[facility] MpgdcraYGTTJYYLEY8349-87-58 04:33:000.4[facility] HermannCARDIAC MANFCQG4013-88-12 10:25:00<0.02[facility]annCARDIAC TJNZMXS1219-97-52 10:25:0075[facility]annCARDIAC BETUXIG6884-24-47 10:25:000.9[facility] HermannCARDIAC ENZYMES 2015-07-16 10:25:001.2[facility] HermannCHEM INBUK5640-35-26 10:25:68534Cueuvaag HermannCHEM IWHJU1781-94-43 10:25:000.6[facility] HermannCHEM SFPLW2413-26-47 10:25:003.1[facility] HermannCHEM FVUOU8025-63-49 10:25:009.0[facility] HermannCHEM WKFRO1601-26-65 10:25:006.3[facility] HermannCHEM VPAUB9934-25-36 10:25:0014 [facility]annCHEM LGSGD9866-29-77 10:25:0089[facility] HermannCHEM PANEL 2015-07-16 10:25:0019[facility] HermannCHEM NYCTB4797-76-47 10:25:0025[facility] HermannCHEM HZYBP9126-23-45 10:25:004.2[facility] HermannCHEM XUGBK4498-10-42 10:25:72610Slecwjpg HermannCHEM DZKTB7591-54-14 10:25:0014[facility] HermannCHEM LTNSR8896-03-94 10:25:000.70[facility]annCHEM FBMBU1501-47-24 10:25:66844 [facility]annCHEM MMCFS5770-75-30 10:25:0078[facility] HermannCHEM PANEL 2015-07-16 10:25:0020[facility] HermannCHEM ACUZJ3849-29-03 10:25:0010.2[facility] HermannCHEM NSXJK7457-14-62 10:25:001.0[facility] HermannCHEM FYVSJ6460-46-80 10:25:003.2[facility] QkayxpuGYBPJWMDKG5808-84-86 10:25:008.6[facility] PYRWBWHLGC3289-69-13 10:25:74664Uakybimh NvwqcfhXWIZCHFNOD1166-21-99 10:25:00 14.3[facility] IhrublvLJGDNJJRPC2316-27-23 10:25:004.53[facility] HermannHEMATOLOGY 2015-07-16 10:25:005.5[facility] IeeaktyVNIKFUKPJT8920-58-22 10:25:00 Test Item Value Reference Range Interpretation Comments MCH (test code = MCH) 27.9 pg 27.0-31.0 [facility] ZyulolkIGPZMFNDBZ8693-69-70 10:25:0031.5[facility] HermannHEMATOLOGY 2015-07-16 10:25:0088.6[facility] BotbuynNJNEXDEKUS5191-26-99 10:25:0040.2[facility] UygsfjxZYQOCTJINF6009-76-17 10:25:0012.6[facility] UyxpwhcDZFLFCRCZV3882-34-15 10:25:000.2[facility] ZqtrnchUCROJVMSGI0409-25-99 10:25:002.0[facility] XJOHNXKPDB4649-92-34 10:25:000.9[facility] ZrfvrcsYFQYHNFDBR1773-78-18 10:25:000.6 [facility] QgdtvziZDBHFANHPU2170-71-11 10:25:002.6[facility]annHEMATOLOGY 2015-07-16 10:25:0011.0[facility] TqmdvzgESWUFTCCTS6197-59-77 10:25:004.0[facility] RireevzFWQSXHWQAT0737-97-10 10:25:0036.1[facility] TkmqsqsWVZSPMUGUE2105-62-65 10:25:0048.0[facility] LzbcfiyIFEXWAMNIT0386-90-45 10:25:000.1[facility] CARDIAC KHSVTRI9858-57-13 04:22:00<0.02[facility] HermannCARDIAC ENZYMES 2015-07-16 04:22:0088[facility]annCARDIAC RFMGENN0783-70-97 04:22:001.1 [facility]annCARDIAC NKLOKCA7489-67-46 04:22:001.0[facility] HermannHEMATOLOGY 2015-07-15 21:33:006.4[facility]annCARDIAC SMMGOUJ9477-31-43 21:33:00<0.02 [facility]annCARDIAC LBESCSA9447-02-15 21:33:001.2[facility]annCARDIAC CYXGKTM0881-35-23 21:33:09128Onqupewg HermannCARDIAC IQTNSPP3745-63-72 21:33:00 1.2[facility] HermannCHEM SFDIH2439-57-67 21:33:0090[facility] HermannCHEM PANEL 2015-07-15 21:33:0091[facility] HermannCHEM APJIH4277-46-14 21:33:0019[facility]annCHEM CZLML2523-31-93 21:33:0017[facility]annCHEM HWSRX0577-23-99 21:33:0012[facility]annCHEM YBPGQ0685-81-30 21:33:000.8[facility] HermannCHEM KDTRL7697-69-31 21:33:0011.1[facility]annCHEM XHZEX8447-45-49 21:33:003.5 [facility]annCHEM SECGI5905-94-19 21:33:0027[facility]annCHEM PANEL 2015-07-15 21:33:006.8[facility] HermannCHEM FFXLU2820-77-27 21:33:008.7[facility]annCHEM TMLQG4302-11-94 21:33:003.3[facility]annCHEM HJQYA6123-15-26 21:33:001.1[facility] HermannCHEM KHKUE3769-47-47 21:33:000.80[facility] HermannCHEM WIRTD5632-69-40 21:33:38939Rlqineiy HermannCHEM PLEVF3014-73-33 21:33:30035 [facility]annCHEM OLPUK1354-96-58 21:33:004.1[facility] HermannCHEM PANEL 2015-07-15 21:33:0010[facility] HermannCHEM ECOIA9838-83-79 21:33:0072[facility] LvoegloMYFLURTPHM6838-68-89 21:33:003.3[facility] NyojkjsSYNOGVITHP8160-93-09 21:33:000.2[facility] TsrbuzlXGHVGNAKSD3789-43-79 21:33:000.6[facility] MHLLPUWJZI3712-02-44 21:33:002.3[facility] OaplwurECIDLNIHBK9362-82-71 21:33:00 51.8[facility] MrbuhvrDUIXDVMKLQ0320-24-52 21:33:000.6[facility] HermannHEMATOLOGY 2015-07-15 21:33:003.1[facility] PitgaisCLQXLPDORK7125-85-11 21:33:009.4[facility] XklxiikNLWTYUKOXL2102-06-62 21:33:0035.1[facility] TzjsxglAZSCHXBDHZ3124-42-43 21:33:000.0[facility] QfevkihOAPWWOUSAW7779-28-82 21:33:009.1[facility] NDDYGIPKRS5562-44-55 21:33:0087.6[facility] RybtadaQNZMVXZQDV2761-35-79 21:33:00 12.9[facility] LpzgzvuJHJYGYGNTK5903-78-88 21:33:0039.8[facility] HermannHEMATOLOGY 2015-07-15 21:33:0032.3[facility] GlvuewcDLSZDAUTUU5517-17-86 21:33:0014.8[facility] VnvjtdyXZNJGLDWIC8924-13-49 21:33:00 Test Item Value Reference Range Interpretation Comments MCH (test code = MCH) 28.3 pg 27.0-31.0 [facility] SufivozPVNYTXVHVX5382-00-22 21:33:14260Gcntmgly HermannHEMATOLOGY 2015-07-15 21:33:004.54[facility] QlsmsbhHDBAATVYAL7082-00-03 19:18:00Negative (05/18/15 2:18 PM)[facility]annCARDIAC LSYQCYI9514-62-56 18:26:00<0.02 [facility]annCHEM GCZSX0616-24-83 18:26:000.1[facility] HermannCHEM PANEL 2015-05-18 18:26:003.9[facility] HermannCHEM XKNSG9850-15-64 18:26:48192Vzxsavhg HermannCHEM QNKHL4040-13-03 18:26:000.5[facility] HermannCHEM YWBMA6465-40-68 18:26:0022[facility] HermannCHEM DNIGN5746-55-95 18:26:0018[facility] HermannCHEM IXEFR9711-36-82 18:26:007.9[facility] HermannCHEM KGQRQ4419-29-64 18:26:004.0 [facility]annCHEM NENUW5717-46-85 18:26:000.4[facility] HermannCHEM PANEL 2015-05-18 18:26:001.0[facility] HermannCHEM JWNHH5055-43-27 18:26:09025Lwnvbcfj HermannCHEM ZUPRT4248-21-51 18:26:0078[facility] HermannCHEM PRIPW3012-09-06 18:26:39226Fwxmwnrg HermannCHEM EZMBD6678-05-73 18:26:003.9[facility] HermannCHEM PPKXP3232-79-36 18:26:000.9[facility] HermannCHEM ZOBOH3149-86-74 18:26:0087 [facility]annCHEM IIXAA4641-23-53 18:26:007[facility] HermannCHEM PANEL 2015-05-18 18:26:45054Cyatvtga HermannCHEM EYQTS3470-34-41 18:26:0028[facility] HermannCHEM CAFFS2816-75-33 18:26:0010.2[facility] HermannCHEM LAAKV7492-97-78 18:26:0010.9[facility] FpcfbbfQKUBOYVHJO1595-85-06 18:26:0014.2[facility] XUWHBZTSHZ5751-48-15 18:26:004.96[facility] OzcouxvYVPQDAHAQG0635-61-04 18:26:00 Test Item Value Reference Range Interpretation Comments MCH (test code = MCH) 28.7 pg 27.0-31.0 [facility] LscjditERHEBBMZRX3685-29-15 18:26:0032.9[facility] HermannHEMATOLOGY 2015-05-18 18:26:0043.3[facility] BmrhdzgGRCRGRPZFR7609-28-35 18:26:0087.2[facility] NgqmdqsRHNLEUDNSW4198-08-11 18:26:006.8[facility] NkctnosBLHFBGLRXQ7144-27-22 18:26:26624Xvuccmre VyjjtmvYEWCGKADLD0022-79-71 18:26:008.2[facility] DHFZLDXGYK6293-29-09 18:26:0014.5[facility] YzfrmwgLEEPZSNUJI7261-29-59 18:26:00 55.6[facility] AyqngvcRDEWDJDMPG3129-47-41 18:26:0032.7[facility] HermannHEMATOLOGY 2015-05-18 18:26:008.5[facility] OtxkwegZCEFQGEKDA6343-72-98 18:26:003.8[facility] ConprdhUIFBKEMTGO0200-65-67 18:26:000.6[facility] KdltfqsZTMLPZWLXG4173-85-78 18:26:002.2[facility] QdwwsryDVUFBEAJYA4197-79-98 18:26:002.6[facility] RZUJFUBPAW5723-34-48 18:26:000.2[facility] WpkyoczZOSZBZXXDL9309-80-05 18:26:000.6 [facility] CjigsgzKPWAOSBFWO9397-15-14 18:26:00Positive *NA*(05/18/15 1:26 PM) [facility] PqlccanELGQRYAZXA0541-26-87 18:26:28384340Jcwtyrdm HermannIMMUNOLOGY 2015-05-18 18:26:005.5[facility] HermannCARDIAC QBKXLND6098-58-87 18:51:00<0.02 [facility] HermannCHEM CPDES2099-85-65 18:51:0090[facility] HermannCHEM PANEL 2015-05-09 18:51:0028[facility] HermannCHEM CXVDI4244-20-49 18:51:009.6[facility] HermannCHEM FFDRW7959-28-07 18:51:16381Etvxtwel HermannCHEM HSCZP1078-02-34 18:51:000.8[facility] HermannCHEM RSKFF9678-95-86 18:51:46792Guhiorvn HermannCHEM GDGVE2454-18-05 18:51:003.7[facility] HermannCHEM VJAFD1446-38-33 18:51:38537 [facility] HermannCHEM WXWGY9634-62-49 18:51:007[facility] HermannCHEM PANEL 2015-05-09 18:51:009.7[facility] ZcrbxvqFGAEXPQHLL4331-48-67 18:51:0014.4[facility] FqaryovZISEWJULQJ4133-21-87 18:51:0032.5[facility] SqxxkptMGPJJEZYHN4500-06-36 18:51:00 Test Item Value Reference Range Interpretation Comments MCH (test code = MCH) 28.7 pg 27.0-31.0 [facility] MikivfcXWVRZQHKUQ0885-74-77 18:51:34009Auttcwqt HermannHEMATOLOGY 2015-05-09 18:51:007.6[facility] EfkquwtUNYMDWNSWM0474-41-86 18:51:0088.2[facility] IuttfytOZDULGRMRB0554-76-37 18:51:0041.9[facility] KquumjzMJCVLFGQCQ7354-57-52 18:51:004.75[facility] TvevoiwMCCDEEFKHE7035-91-14 18:51:0013.6[facility] GIEEGQWKYA0884-20-37 18:51:005.6[facility] BnvmyuiMRCXPZSAOZ1843-22-43 18:51:002.1 [facility] MawyxnbZHKWLDYSRC3084-91-28 18:51:000.1[facility] HermannHEMATOLOGY 2015-05-09 18:51:000.2[facility] DkjkyxrFKSUPYYYOO6454-27-69 18:51:000.4[facility] MxtlgcaKIBJDTUEPG7420-08-76 18:51:0050.8[facility] FrhwyzaGESRUBTZIE9010-32-03 18:51:002.8[facility] ZuwmwijABEGNQQBEL4612-38-92 18:51:002.9[facility] AQTATZLOMH7988-08-64 18:51:001.1[facility] HbhhqmtRAMGTVTEMJ0088-47-81 18:51:007.7 [facility] OgibozvVIRTOQTABF8517-99-32 18:51:0037.6[facility] HermannCARDIAC ENZYMES 2015-05-02 22:03:00<0.02[facility] HermannCHEM OJKGH8892-91-50 22:03:003.2 [facility] HermannCHEM IJXMF6410-55-31 22:03:002.1[facility] HermannELECTROLYTES 2015-05-02 22:03:0012.4[facility] LlpdxsiROTGWHVIKZSZ7233-47-76 22:03:0068[facility] KhfxcazQKZQYAOMFBQL1816-55-90 22:03:00648Jliztorr XvvhgoxKUSWIIJQUJUN8461-17-69 22:03:10975Xzpvuumi EgntomhMPVZEZTJPJSP8142-67-59 22:03:0028[facility] MDAYOKLCTZVN1621-13-65 22:03:008.8[facility] GzsjdwmCDCGGTASCEGC0488-06-37 22:03:003.4[facility] VswezzeQKLQBOHNGQUJ1701-04-57 22:03:000.9[facility] SVACRGMVISTI6364-10-69 22:03:0092[facility] WtfnunmPFTJIREKJCPF1089-37-74 22:03:00 6[facility] RlpwtrzAVWTFNCOHA5640-80-77 22:03:008.0[facility] HermannHEMATOLOGY 2015-05-02 22:03:0014.1[facility] AdzkjjnJZDVFXBBFS9328-07-05 22:03:63407Mqclstgy VevvyekRGSLSGFXIJ9967-33-00 22:03:0032.6[facility] BxreuqyTBEUYGTVDB2358-39-72 22:03:008.0[facility] UmakjnnTJCWFQKAHX7271-91-30 22:03:0040.2[facility] JTVXJIEEXT4934-94-84 22:03:0087.4[facility] AalyahnOQOCLUQAUB4340-43-10 22:03:00 13.1[facility] HswsnhtQDCSSSRELN8455-79-07 22:03:004.60[facility] HermannHEMATOLOGY 2015-05-02 22:03:00 Test Item Value Reference Range Interpretation Comments MCH (test code = MCH) 28.5 pg 27.0-31.0 [facility] XimxawtMCQSAWNSTG3959-74-38 22:03:0026.3[facility] HermannHEMATOLOGY 2015-05-02 22:03:0060.9[facility] EpxboucNZHVFDGDAT2492-41-68 22:03:001.0[facility] CidppjmPUVLBRZMJT8095-09-60 22:03:003.0[facility] WooyrekCLGXFKSOTV9948-28-51 22:03:008.8[facility] UprdelxLWLAZKALAP5668-68-33 22:03:000.7[facility] UGNWKMTEYH0421-51-46 22:03:000.2[facility] EshpyzoYRKGMBUZNJ4805-45-96 22:03:002.1 [facility] LzxbnfoHBRSSVSISV7330-44-85 22:03:004.9[facility] HermannHEMATOLOGY 2015-05-02 22:03:000.1[facility]annURINE AND VCAMW0522-52-67 21:38:00Negative (05/02/15 4:38 PM)[facility] VPMMW3251-73-22 21:38:00Moderate *ABN*(05/02/15 4:38 PM)[facility] XGFIA7190-13-35 21:38:00None Seen (05/02/15 4:38 PM)[facility] EDDJY7493-36-67 21:38:00None Seen (05/02/15 4:38 PM)[facility] RIOFC3603-01-81 21:38:00Negative (05/02/15 4:38 PM)[facility] XIDWG2930-52-54 21:38:00Negative *NA*(05/02/15 4:38 PM)[facility] HZUUW1154-41-62 21:38:000.2 [facility] CYMBX8853-12-90 21:38:00Negative (05/02/15 4:38 PM) [facility] BOMFV1621-13-09 21:38:00Negative *NA*(05/02/15 4:38 PM) [facility] IUTFS7852-20-59 21:38:00Yellow *NA*(05/02/15 4:38 PM) [facility] IULAL9617-33-63 21:38:00 Test Item Value Reference Range Interpretation Comments UA pH (test code = UA pH) 6.0 1 5.0-8.0 [facility] GXMIE5673-28-00 21:38:00Slight Cloudy (05/02/15 4:38 PM) [facility] NRDLM8047-83-07 21:38:00Negative (05/02/15 4:38 PM) [facility] KPAFG6870-22-49 21:38:00 Test Item Value Reference Range Interpretation Comments UA Spec Grav (test code = UA Spec 1.006 1 Grav) [facility]annCHEM WLCBZ6646-11-10 09:28:0034[facility] HermannCHEM PANEL 2015-03-24 09:28:000.6[facility] HermannCHEM HIHOE6235-17-88 09:28:0095[facility] HermannCHEM SMUTQ2880-03-15 09:28:006[facility] HermannCHEM FCPPY7751-96-44 09:28:001.1[facility] HermannCHEM UHYEM1837-86-36 09:28:003.1[facility] WGXSIJSTLL6794-54-66 09:28:0011.3[facility] DknfgxqEQOOFXYYTD7754-87-55 09:28:00 27.1[facility] RcnxngvQRAPJBATWY8062-36-36 09:28:005.9[facility] HermannHEMATOLOGY 2015-03-24 09:28:003.3[facility] WtugzwvNBCYTWPIQE6961-02-46 09:28:000.7[facility] RrjgecwTVHXFRPUKJ3252-36-09 09:28:0055.0[facility] RhttgmiJWAPJKJJUH9708-79-46 09:28:000.7[facility] MrdhwafNRXJQWXLYJ7290-74-24 09:28:001.6[facility] XNYCXYSPMB3179-12-63 09:28:000.4[facility] CdwrmvdXZUARVJTZU8389-46-76 09:28:00 4.21[facility] JmfdpohYOKHZZTBIA7100-50-79 09:28:005.9[facility] HermannHEMATOLOGY 2015-03-24 09:28:85423Qsywedwc PpoezjaGCFZEUTPSQ9528-58-79 09:28:0032.4[facility] BrlqtipBQOEMRFXIT6671-23-53 09:28:0014.2[facility] NpmygloCGQLZAWGWD2491-02-34 09:28:008.6[facility] EbmatnuRRLCCDVJJI2829-44-39 09:28:0037.2[facility] CWTCKYMGTZ7792-71-46 09:28:0088.3[facility] KtxgsmoZGNFNJMSHI4833-58-73 09:28:00 12.1[facility] OwulrfxCJGMZIAYEX6212-67-31 09:28:00 Test Item Value Reference Range Interpretation Comments MCH (test code = MCH) 28.6 pg 27.0-31.0 [facility]annCHEM DDXHH3536-63-18 09:28:39061Inedhtvd HermannCHEM PANEL 2015-03-24 09:28:19480Gjpfsfmb HermannCHEM HWBZR4367-85-06 09:28:000.7[facility] HermannCHEM WQKMJ1421-91-94 09:28:004[facility] HermannCHEM AUOUX6681-18-94 09:28:003.2[facility] HermannCHEM ZKXEK9121-46-11 09:28:09212Xxdqweoi HermannCHEM YWXZD5271-38-35 09:28:0091[facility] HermannCHEM KQICO3869-19-51 09:28:003.5 [facility]annCHEM GYTAE1416-61-95 09:28:006.6[facility] HermannCHEM PANEL 2015-03-24 09:28:18503Zdnjvhtg HermannCHEM GIEYL3377-47-45 09:28:009.1[facility] HermannCHEM NVMII8550-03-32 09:28:0027[facility] HermannCHEM AXPOO3981-19-76 09:28:0011.2[facility] HermannCHEM RJOCE9262-63-71 09:28:0021[facility]annURINE AND VHGHH0075-01-95 18:14:00Negative (03/23/15 1:14 PM)[facility] HermannCARDIAC ODSIVLR8093-64-03 10:51:000.8[facility] HermannCARDIAC EFEIJNJ8472-30-03 10:51:00 70[facility] HermannCARDIAC EZLQUWW2896-36-95 10:51:001.1[facility] HermannCHEM RYVIL9485-91-84 10:51:21637Cnauaojs HermannCHEM PYGRD6544-51-96 10:51:0027 [facility]annCHEM MHNWC8685-60-15 10:51:009.2[facility] HermannCHEM PANEL 2015-03-23 10:51:63944Iscehsft HermannCHEM IVAYR4463-54-53 10:51:66956Uevycusn HermannCHEM MOICJ1327-47-15 10:51:003.5[facility] HermannCHEM MIJNO5186-77-44 10:51:000.7[facility] HermannCHEM DLJNG0999-01-70 10:51:008[facility] HermannCHEM LVEJO1638-62-18 10:51:84704Slaljuij HermannCHEM NIQOW8942-04-03 10:51:0010.5 [facility] GlfirdcQFZJMYQKPE3930-66-88 10:51:001.3[facility] HermannHEMATOLOGY 2015-03-23 10:51:003.4[facility] WezmpcpWUUKCYEINZ3286-47-83 10:51:000.6[facility] CikeatrLWWBOWKFRZ8663-64-96 10:51:004.0[facility] OfptuxhQKAJLGVDOJ8866-57-17 10:51:000.2[facility] YqaybixDODNZODESU7691-75-82 10:51:000.6[facility] WNVAHDRQKM8180-33-59 10:51:0011.0[facility] CjhknkzOASBQORJUQ9746-65-37 10:51:00 23.6[facility] ByhlohmLTIITPEGKK3607-96-06 10:51:0060.8[facility]annHEMATOLOGY 2015-03-23 10:51:008.3[facility] BpbebizWLXGFVTFGQ1961-42-29 10:51:94754Pqbqiele XevwosuSPEMDRERPL6321-64-00 10:51:0014.6[facility] UxmlezyZNNIBLMWLB8386-49-86 10:51:0088.0[facility] YosgzyuHJUBMADGQG7181-27-83 10:51:00 Test Item Value Reference Range Interpretation Comments MCH (test code = MCH) 28.7 pg 27.0-31.0 [facility] GjctfzxFKQFEMNTPO2379-99-81 10:51:0034.7[facility]annHEMATOLOGY 2015-03-23 10:51:0032.6[facility] IbvllyiTLPOWSAOWZ5185-76-04 10:51:0011.3[facility] KibumvmFUPJLRGZLE6890-02-49 10:51:003.94[facility] BnunyngEPTOWJIYQO6193-60-34 10:51:005.6[facility]annCARDIAC XRCRHWP3347-70-13 10:19:001.6[facility] CARDIAC QCOPBBV2938-09-16 10:19:001.0[facility]annCARDIAC IQPFHIW2648-20-96 10:19:0064[facility]annCHEM JUQIK2840-01-39 10:19:59680Jijjkhds HermannCHEM GQROP7828-08-63 10:19:008.7[facility]annCHEM JOCJF7393-12-27 10:19:13080 [facility]annCHEM FXHZI2755-32-17 10:19:003.9[facility]annCHEM PANEL 2015-03-22 10:19:72861Xefchzho HermannCHEM KVQRZ8469-34-45 10:19:0027[facility]annCHEM USUVV0568-32-23 10:19:0094[facility]annCHEM VQIBD4981-26-11 10:19:008[facility]annCHEM ZOQLU7436-38-98 10:19:000.6[facility]annCHEM UWYVG8880-18-84 10:19:008.9[facility] BhstgkkSBYVNLXAZM9362-21-90 10:19:000.2 [facility] ZntibccXFLLAEAUYI4117-98-65 10:19:000.5[facility]annHEMATOLOGY 2015-03-22 10:19:000.9[facility] JhcazstVHLGNUERGX3032-74-65 10:19:0011.2[facility] PhdfvniTFQTDBXDXQ4073-36-84 10:19:002.1[facility] WyfpeqqLWTWVYBXQO8220-22-31 10:19:003.7[facility] FtdalohOKKGQMDUOZ6556-17-51 10:19:001.6[facility] EUBTVCJDSH8748-75-80 10:19:0048.6[facility] StycptsUYJAODJGLP5548-17-43 10:19:00 35.6[facility] PliuvaoPYKOZXUASO3855-22-35 10:19:008.9[facility]annHEMATOLOGY 2015-03-22 10:19:004.4[facility] HljvpbpEAAIKSIYIC8166-73-36 10:19:00 Test Item Value Reference Range Interpretation Comments MCH (test code = MCH) 29.9 pg 27.0-31.0 [facility] TkvkcdzYNJHUFIOSQ7305-60-39 10:19:0086.5[facility]annHEMATOLOGY 2015-03-22 10:19:0034.6[facility] HfufattAVIDAIQSUH1433-33-36 10:19:0011.7[facility] VuptyqyNMODKDYCDS2454-46-04 10:19:003.92[facility] SdxvqwuHDVGRPBJWP3770-63-53 10:19:0033.9[facility] RxarwyhIBJVBCHFHI3192-55-76 10:19:0014.6[facility] YAQQSQJKJP2334-20-98 10:19:49835Tykuyrrh HermannCARDIAC XBOYCGD8721-89-39 03:22:001.6[facility]annCARDIAC XSHCFHQ7362-09-92 03:22:0077[facility] CARDIAC WCDWYOX4197-17-46 03:22:001.2[facility]annCHEM GMOQQ5937-33-89 02:44:001.4[facility]annCARDIAC HTVLYBI6135-39-77 21:13:00<0.02[facility]annCHEM CEVAL6500-81-58 21:13:003.3[facility]annCHEM HCWPS3575-48-83 21:13:001.1[facility]annCHEM GJBTV7548-62-22 21:13:0016[facility]annCHEM CLXHH7388-11-83 21:13:74643Hxdwbahd HermannCHEM JDXCE3655-64-40 21:13:0025 [facility]annCHEM MJWGS4909-66-21 21:13:000.5[facility]annCHEM PANEL 2015-03-21 21:13:0032[facility]annCHEM XYOLV2765-25-44 21:13:003.7[facility]annCHEM PRNPU6916-16-34 21:13:007.0[facility] GdisdmnQMTYEOOBRO8939-72-24 21:13:000.0[facility] QgpkcatQYGKNWXBXN1922-17-64 21:13:001.04[facility] VGRBLNQRRV2146-72-93 21:13:00 Test Item Value Reference Range Interpretation Comments PT (test code = PT) 13.6 s 12.0-14.7 [facility] UdrxwzbCHNSPJRVMP8801-82-94 21:13:00 Test Item Value Reference Range Interpretation Comments PTT (test code = PTT) 35.2 s 22.9-35.8 [facility]annCARDIAC TEYXJRV3958-09-47 21:10:006[facility]annCARDIAC BVHALQX0158-43-33 21:02:00<0.02[facility]annCARDIAC FURIDJU8686-92-57 21:02:0031[facility]annCARDIAC ZWOETDK9480-17-05 21:02:000.8[facility] CARDIAC AGRBJWS0024-93-04 21:02:0070[facility]annCARDIAC CSGXZOU7181-51-01 21:02:001.1[facility]annCHEM ASGTI2715-92-17 21:02:35764Mdtljzyb HermannCHEM HMNTL6983-30-11 21:02:0099[facility]annCHEM NFSTV1132-24-54 21:02:000.6 [facility]annCHEM DBWOQ9136-17-21 21:02:0011[facility]annCHEM PANEL 2015-03-11 21:02:009.4[facility]annCHEM XUIAF1788-91-88 21:02:003.1[facility]annCHEM XWQYN0727-43-39 21:02:001.1[facility]annCHEM LGRKY8014-33-05 21:02:0073[facility]annCHEM TZYXQ4640-98-05 21:02:008[facility]annCHEM FJXUK5957-62-94 21:02:000.7[facility]annCHEM RSKTW2231-55-41 21:02:27182 [facility]annCHEM ZJSAS7929-28-03 21:02:003.4[facility]annCHEM PANEL 2015-03-11 21:02:0028[facility]annCHEM PXCPE3356-90-32 21:02:14842Fcrcpoua HermannCHEM KSBGL3184-23-74 21:02:008.9[facility]annCHEM VMSXL7031-06-04 21:02:006.5[facility]annCHEM TDNER4377-93-17 21:02:003.4[facility]annCHEM ZVHGL7631-51-36 21:02:0030[facility]annCHEM LUGNX8142-19-09 21:02:0021 [facility] MhyhadlHYUORTGZWJ8371-49-29 21:02:0015.1[facility]annHEMATOLOGY 2015-03-11 21:02:0033.1[facility] XzkeoeaWXDHLSTKGL7414-92-03 21:02:77538Tcruknsn BfvlequBKXGXVXMRM0277-06-20 21:02:008.1[facility] UalpmtiIQLDLIICBN2328-45-10 21:02:0034.6[facility] BoaprugPKRFEJJYVA1138-23-64 21:02:0011.5[facility] HSZKSMKMWM1535-31-37 21:02:00 Test Item Value Reference Range Interpretation Comments MCH (test code = MCH) 28.8 pg 27.0-31.0 [facility] MaddqfpNQEVHKZREO0188-48-19 21:02:0086.9[facility]annHEMATOLOGY 2015-03-11 21:02:003.98[facility] BruzxaqCHHGRJLYHX8713-92-85 21:02:006.5[facility] HdojgtwILNUPPADLM7179-22-57 21:02:00 Test Item Value Reference Range Interpretation Comments PTT (test code = PTT) 32.8 s 22.9-35.8 [facility] VfjvtshLXYZJCHNIK4773-56-91 21:02:00 Test Item Value Reference Range Interpretation Comments PT (test code = PT) 13.3 s 12.0-14.7 [facility] ToapmcwQGTVSVYORF3168-40-45 21:02:001.01[facility]annHEMATOLOGY 2015-03-11 21:02:000.0[facility] LxdqxkdSYXNGHJKHA4828-64-25 21:02:003.7[facility] BlzxrhpNJWKCSKFBP1237-92-02 21:02:000.2[facility] LbvepgyTKIRXFVRJC7392-59-24 21:02:000.6[facility] BvabswdMXHWPYZKPL5075-98-76 21:02:001.9[facility] DLVDHHTLCG2662-38-92 21:02:0056.9[facility] WneedmnTARPECVLOF4771-39-08 21:02:00 2.7[facility] NyhlnvoYERQZHPRDB6849-70-27 21:02:000.4[facility]annHEMATOLOGY 2015-03-11 21:02:009.9[facility] ZryvyzcKJRWQDZCEN5876-19-58 21:02:0030.1[facility]annCARDIAC XQLRDMZ2358-01-82 09:33:00<0.02[facility]annCARDIAC ENZYMES 2015-03-05 06:16:00<0.02[facility] HermannCHEM DTAOU7911-51-92 06:16:001.1 [facility]annCHEM XWZZH5467-39-07 06:16:003.5[facility]annCHEM PANEL 2015-03-05 06:16:000.5[facility] HermannCHEM QAWVC3315-56-01 06:16:000.1[facility] HermannCHEM AHMBD1931-47-34 06:16:0025[facility]annCHEM XNJXO9290-46-56 06:16:0021[facility]annCHEM MXLHA1917-37-08 06:16:003.7[facility] HermannCHEM UYXJU6899-04-27 06:16:87253Uftwzcql HermannCHEM JMHUP2135-09-35 06:16:000.6 [facility]annCHEM NZZUG7999-51-35 06:16:007.2[facility] HermannCHEM PANEL 2015-03-05 06:16:03372Vdmynxgl WvqpfuyPDXCLYRZZTFI9338-30-79 06:16:0012.6 [facility] WvdwyqwLNOETFEDJUTZ7781-81-88 06:16:0078[facility] HermannELECTROLYTES 2015-03-05 06:16:009.6[facility] KfkyvaiXKJPRYIMJZLD7526-05-92 06:16:0029[facility] VoruzzyAECWJLQIEUQF6167-71-21 06:16:003.6[facility] EyvyjvdOQMICXEGUEUU6931-19-52 06:16:45196Erurbdpg SqaxevsPBVGEPWMMOUX0117-12-92 06:16:10072Lzbisrga [facility] VIEHGLEMALRV0551-93-64 06:16:000.8[facility] MltiwgoPGBUARZDHJYS3066-28-84 06:16:009[facility] FjkpppkQMGASYMVCTOG5230-07-98 06:16:0096[facility] XPXBCSWYCJ2014-01-58 06:16:002.6[facility] GhldtvdEJXULXHAUT3207-17-40 06:16:000.9 [facility] UaeppsaHERJAFNZIH4665-00-09 06:16:000.7[facility]annHEMATOLOGY 2015-03-05 06:16:001.7[facility] ZdnbbafIUNHZDBZDL1883-31-03 06:16:006.7[facility] ApdaaydGHFJZTKKUE7762-82-48 06:16:0025.0[facility] WsohprtRSLAETJTQX7106-32-83 06:16:0064.3[facility] TxiytdyZIBOAKWDTT5931-94-00 06:16:008.3[facility] BYXDLVEVEC6661-89-72 06:16:000.2[facility] GqtennfWJTHENOQLE1672-87-34 06:16:000.1 [facility] KsaraajKJJRTRKCJQ7174-37-25 06:16:0087.7[facility]annHEMATOLOGY 2015-03-05 06:16:0039.7[facility] KzthycsWHQNERBHFH4196-93-95 06:16:008.0[facility] QtbevejSKQYBYIYSB9480-67-39 06:16:81783Tvwrfhzf YbykdoxHCYKXIPLHO0376-11-72 06:16:0014.6[facility] GmqstnjRUKSBLIRSN7121-05-55 06:16:0032.4[facility] QYVSEEEBHC8860-72-20 06:16:00 Test Item Value Reference Range Interpretation Comments MCH (test code = MCH) 28.4 pg 27.0-31.0 [facility] KuvhhalSNOWSTJRXI1558-80-23 06:16:0010.5[facility]annHEMATOLOGY 2015-03-05 06:16:004.53[facility] CoivfubXZFDCIVVAB2850-64-15 06:16:0012.9[facility] HermannCHEM JHEHM5928-07-05 09:16:002.0[facility] HermannCHEM HKJEV5770-48-82 09:16:003.6[facility]annCHEM TZWCA9629-87-43 09:16:19180Vmuuanga HermannCHEM HBFUA8132-76-14 09:16:0017[facility]annCHEM UNIIX6769-42-08 09:16:003.3 [facility]annCHEM NYPNX5779-88-79 09:16:001.1[facility]annCHEM PANEL 2015-02-25 09:16:006.3[facility] HermannCHEM EXOWS1614-21-76 09:16:0021[facility]annCHEM JCAXP1195-97-70 09:16:003.0[facility]annCHEM SFHZL0997-72-13 09:16:000.5[facility]annCHEM QSTUE8288-66-95 09:16:28160Wlmtadvq HermannCHEM ZQUJS2347-18-46 09:16:0011[facility]annCHEM TBWQI0705-98-92 09:16:009.1 [facility]annCHEM ZGACS6031-52-55 09:16:0099[facility]annCHEM PANEL 2015-02-25 09:16:008[facility]annCHEM TPLOQ0429-54-61 09:16:26354Neffnffq HermannCHEM LELPO8482-86-76 09:16:000.7[facility] HermannCHEM TXYEQ5048-80-55 09:16:008.9[facility]annCHEM FBERB5640-62-99 09:16:91498Jhmdqure HermannCHEM NEBWS4706-45-33 09:16:0028[facility]annCHEM XPZZV2701-82-40 09:16:003.9 [facility] YamfywuVLIPCZKETW5815-98-07 09:16:23610Fnnyvwas HermannHEMATOLOGY 2015-02-25 09:16:008.8[facility] YetizbcFJNJGYWWYJ3378-39-04 09:16:0014.9[facility] EbnnuxrWQVLWXQECY3630-56-08 09:16:005.9[facility] YwmkotfESICIONQSG3375-06-39 09:16:0088.4[facility] VxkirjxTNVPAPKMNM0794-96-18 09:16:0037.2[facility] SOJWHONKQN2229-49-45 09:16:00 Test Item Value Reference Range Interpretation Comments MCH (test code = MCH) 28.6 pg 27.0-31.0 [facility] WdlrzcmOZXJXYSRUR2033-35-61 09:16:0032.4[facility]annHEMATOLOGY 2015-02-25 09:16:004.21[facility] YykfoopYUSWGXOGIT8971-35-71 09:16:0012.0[facility] CobqeovYYRJAAEVYU1751-30-78 09:16:0031.9[facility] JadrhjnCVWCTYUOJE8532-56-79 09:16:000.8[facility] LntexkcKQJXPWILYT4047-27-93 09:16:003.1[facility] XZSLPWKTMP8122-36-62 09:16:0011.6[facility] AlcssshDDFBDTMRWK8282-46-39 09:16:00 2.9[facility] PujvjebEIIVPIYFIP0060-35-19 09:16:0052.8[facility]annHEMATOLOGY 2015-02-25 09:16:000.7[facility] SksacruCPZWHHFXCQ6312-38-53 09:16:001.9[facility] PbrinbaMEEEWMWWMQ2471-69-17 09:16:000.2[facility] HermannCARDIAC PVRANOZ5904-21-23 04:30:0074[facility]annCARDIAC PWTFBWR1089-45-27 04:30:001.2[facility] CARDIAC JNBZUNE9100-36-09 04:30:00<0.02[facility]annCARDIAC ENZYMES 2015-02-25 04:30:000.9[facility]annCARDIAC NTTCLIX1360-31-83 23:29:00<0.02 [facility]annCARDIAC UCWQLYC5590-72-74 23:29:000.7[facility]annCARDIAC LPZBFRL6130-29-47 23:29:0068[facility]annCARDIAC MDGOUTM5747-66-75 23:29:00 1.0[facility]annCARDIAC HZRMEEQ3188-32-40 17:33:000.9[facility]annCARDIAC CSBNRYH4587-60-27 17:33:00<0.02[facility]annCARDIAC UGFNOMO0298-61-30 17:33:000.7[facility]annCARDIAC CUJFAXL9226-45-82 17:33:0076[facility] CHEM AZQVD1618-88-07 17:33:0090[facility]annCHEM CKYRB9619-02-40 17:33:003.1 [facility]annCHEM KILWY5151-67-44 17:33:60612Uqjzjzmg HermannCHEM PANEL 2015-02-24 17:33:000.3[facility] HermannCHEM XZCJS5744-25-19 17:33:001.1[facility]annCHEM MFOQL7880-64-23 17:33:007.3[facility] HermannCHEM OVKJK2015-68-54 17:33:0012[facility]annCHEM XBGHN3637-54-05 17:33:000.8[facility]annCHEM FZUTL5067-62-43 17:33:29797Tnbjgjnp HermannCHEM UZXZI7137-04-11 17:33:0088 [facility]annCHEM LFENF7857-33-11 17:33:003.3[facility] HermannCHEM PANEL 2015-02-24 17:33:54877Okpdawme HermannCHEM OJQRO8936-96-70 17:33:0010[facility]annCHEM VCBWT4922-48-15 17:33:0015[facility]annCHEM TZFJE0960-08-52 17:33:0022[facility]annCHEM DAJJB4222-09-71 17:33:008.9[facility]annCHEM URGCN5425-39-73 17:33:0030[facility]annCHEM OSOZS2146-32-90 17:33:006.6 [facility]annCHEM IWTHY9901-03-14 17:33:003.5[facility]annHEMATOLOGY 2015-02-24 17:33:0055.9[facility] CcuddkfLDBPVPJWQQ6931-73-43 17:33:0028.7[facility] JciydeaISAUCQPARX6745-42-95 17:33:003.7[facility] WylxvoqGPTAJWMQEU5325-11-20 17:33:000.7[facility] LybvqhsZLDKYFYQTK6217-83-80 17:33:001.9[facility] TTBZFPKBXB0778-14-58 17:33:002.2[facility] YpowmodZZLRQFGABV7685-18-04 17:33:00 12.5[facility] DltvvbjYIPXEIUNOC8530-28-05 17:33:000.0[facility]annHEMATOLOGY 2015-02-24 17:33:000.1[facility] UzzbkkoNGZEGBPHQC3333-49-95 17:33:000.8[facility] CvrooopKAUWTJZTRA9155-44-67 17:33:008.8[facility] ReucsvcYHZWTGRTWI9601-86-84 17:33:00 Test Item Value Reference Range Interpretation Comments MCH (test code = MCH) 28.1 pg 27.0-31.0 [facility] BmkcqaoCLPBMQMIZB9151-98-42 17:33:0014.8[facility]annHEMATOLOGY 2015-02-24 17:33:0032.2[facility] GvmskynLORONPZFZY9548-56-38 17:33:53614Kppalrql VblriifEWHZQHMZPO1674-23-76 17:33:0011.4[facility] ZsrvofgXOFSKKFSSA7271-89-81 17:33:004.04[facility] UxnotgeXYHKBJKREX5909-18-41 17:33:006.5[facility] PNYDJCKGDW3976-78-48 17:33:0035.3[facility] RskxpayCBYCJXFEAY0774-09-50 17:33:00 87.2[facility] HermannCARDIAC WEFPEBZ4779-25-53 09:54:006[facility]annCARDIAC ZRLKPZS6009-19-69 09:54:00<0.02[facility]annCARDIAC BNYMGEK7870-99-19 09:54:001.0[facility]annCARDIAC QNKUCUX0562-10-29 09:54:0077[facility] CHEM RXTIS1604-52-51 09:54:001.8[facility] HermannCHEM OHVQN4379-99-25 09:54:66108 [facility]annCHEM SZVAZ3999-49-02 09:54:46385Ppbxjxcr HermannCHEM PANEL 2015-02-17 09:54:003.8[facility] HermannCHEM MBXDZ6583-06-38 09:54:33649Nnxpntzd HermannCHEM JWKFA5795-64-84 09:54:008.6[facility] HermannCHEM IRNGV3966-21-40 09:54:0011.8[facility] HermannCHEM ICXLS2283-99-20 09:54:0025[facility]annCHEM VUGWY1051-22-44 09:54:000.6[facility]annCHEM SGXIL6428-59-71 09:54:006 [facility]annCHEM WIJQH1582-37-70 09:54:0072[facility]annHEMATOLOGY 2015-02-17 09:54:0011.5[facility] ZijuwsqHVOFQL8424-88-70 09:54:0051[facility] GtkdgtrTUIVNM9028-74-53 09:54:0017[facility] YfdfidqRUFANX7949-99-58 09:54:0096 [facility] JagvvhkCHHJJM6269-50-27 09:54:97027Aqioivlx LylcgcbWIBANQ7338-88-24 09:54:0084[facility] EtxhbwtIZCQRE5002-18-04 09:54:003.22[facility] HermannSPECIAL LYMHMPVTX2701-66-48 09:54:005.8[facility] HermannCARDIAC LUFHKLN6775-80-52 04:20:00<0.02[facility]annCARDIAC QYZUSYV0358-44-32 04:20:0092[facility]annCARDIAC XZGBUMZ2066-50-23 04:20:001.2[facility]annCARDIAC ENZYMES 2015-02-16 22:59:001.2[facility]annCARDIAC PWJNZIR9977-20-69 22:59:001.3 [facility]annCARDIAC ZUHORCC0032-92-55 22:59:0093[facility]annCARDIAC MHMGTSU9283-40-02 22:59:00<0.02[facility]annCARDIAC YMZOGCG3599-96-73 22:59:004[facility] HermannCHEM ZCHPZ3635-35-47 22:59:06819Zeypbwwa HermannCHEM VOQFK6682-60-75 22:59:001.0[facility] HermannCHEM NFJTE0320-80-28 22:59:003.6 [facility]annCHEM WTXHZ0522-37-80 22:59:000.4[facility] HermannCHEM PANEL 2015-02-16 22:59:000.1[facility] HermannCHEM RQFLT1901-93-35 22:59:000.5[facility] HermannCHEM UEJOA6129-02-26 22:59:007.3[facility] HermannCHEM KQNSR2963-87-54 22:59:71183Zmisnlzz HermannCHEM BDTFB2892-77-68 22:59:0015[facility] HermannCHEM UMQDR6258-53-12 22:59:0021[facility] HermannCHEM MJHMQ0587-80-54 22:59:003.7 [facility]annCHEM NKUMM9883-79-10 22:59:003.1[facility] HermannCHEM PANEL 2015-02-16 22:59:001.9[facility] HermannCHEM TVDYD9399-98-26 22:59:0090[facility] HermannCHEM OYETM0539-30-84 22:59:009.0[facility] HermannCHEM CLLIZ3183-83-84 22:59:0028[facility] HermannCHEM PAIPL2812-36-59 22:59:21099Kdjxghze HermannCHEM OVDAZ9600-76-22 22:59:000.8[facility] HermannCHEM KZUIT7608-50-09 22:59:0011 [facility]annCHEM HBORU7247-81-05 22:59:003.5[facility] HermannCHEM PANEL 2015-02-16 22:59:65547Jmpzrsnh HermannCHEM KXHKA0811-13-86 22:59:0076[facility] HermannCHEM ZMYXV4474-12-06 22:59:007.5[facility] XpudcjmLDTGURMGBU9309-04-03 22:59:003.3[facility] YyinushWBESJGFQPR3083-74-50 22:59:009.1[facility] VMPXSEXRDW1678-08-86 22:59:0028.9[facility] DemksrfJLYJIDOQLB7534-32-74 22:59:00 58.3[facility] IzjqfykTGODPFUAET9644-57-29 22:59:003.8[facility] HermannHEMATOLOGY 2015-02-16 22:59:000.4[facility] JfawxzlUWKNVYHSVL0548-91-25 22:59:000.6[facility] KgmpisoDUNVPTPYTM9771-97-31 22:59:001.9[facility] JgsbehfIYTIMVMANH2702-06-43 22:59:000.2[facility] EuiwwniHYRLHWJBNG6280-60-67 22:59:000.0[facility] SKWLBQMYLX4655-35-71 22:59:00 Test Item Value Reference Range Interpretation Comments PTT (test code = PTT) 36.0 s 22.9-35.8 [facility] OzsgsifXXBUYAAACU5745-33-65 22:59:00 Test Item Value Reference Range Interpretation Comments PT (test code = PT) 12.9 s 12.0-14.7 [facility] KhhqcpnJNGQUMMERU2250-38-02 22:59:000.97[facility] HermannHEMATOLOGY 2015-02-16 22:59:91147Xjtwpvsq UbjfvxfOOGGZEZYTY1765-07-61 22:59:0014.7[facility] GvbtogfTIWZFAYUHD8382-26-84 22:59:008.7[facility] YobjnsgIEOIFOABWB9328-11-55 22:59:0032.6[facility] XmbnbjwQRFLGTAJLD6574-48-99 22:59:0039.5[facility] XNBBEVQIQI6402-96-79 22:59:0087.3[facility] QpxmhajWIMARIUCSK6342-37-33 22:59:00 Test Item Value Reference Range Interpretation Comments MCH (test code = MCH) 28.4 pg 27.0-31.0 [facility] CeyatuvZVALNEGQRG2683-66-76 22:59:004.52[facility] HermannHEMATOLOGY 2015-02-16 22:59:0012.9[facility] TfftnlqVPUWOQQPFZ7452-13-67 22:59:006.5[facility] DsielabUOVWRSZSN3860-30-51 22:59:0046[facility] HermannCARDIAC LEJTZYO2302-35-01 21:17:0015[facility] HermannCARDIAC DPERKNI7021-09-62 21:17:00<0.02[facility] HermannCARDIAC HSDCGQG2634-78-99 21:17:0080[facility] HermannCARDIAC ENZYMES 2013-12-22 21:17:00<0.5[facility] HermannCARDIAC OLYLRVN5976-51-77 21:17:00 <0.6[facility] HermannCHEM XRCWG9046-55-53 21:17:60384Nyhygrsq HermannCHEM MXQST4913-52-47 21:17:003.6[facility]annCHEM SFQYY7436-83-28 21:17:0017 [facility]annCHE[facility] IYLEK9661-92-53 21:17:001.1[facility]annCHEM PANEL 2013-12-22 21:17:80751Umgpzkya HermannCHEM BOZXX5759-70-33 21:17:0034[facility]annCHEM AEHCA6799-62-26 21:17:003.9[facility]annCHEM REPKJ0680-19-75 21:17:0089[facility]annCHEM TJDNW8393-80-21 21:17:0022[facility]annCHEM MWBQW1674-51-39 21:17:000.6[facility]annCHEM QAJJX5909-14-60 21:17:005.5 [facility]annCHE[facility] OHBOF0260-18-46 21:17:000.6[facility]annCHEM PANEL 2013-12-22 21:17:0010[facility]annCHEM TZMLN2889-24-77 21:17:003.5[facility]annCHEM KQQNJ5350-71-39 21:17:98725Xlgqufmi HermannCHEM SHEIW3170-56-37 21:17:65162Ecurbupp HermannCHEM DEPHA8650-80-57 21:17:0029[facility]annCHEM XKJTP6666-28-11 21:17:007.5[facility]annCHEM LZNZP3228-86-50 21:17:009.2 [facility]DR[facility] XMSIKM2038-22-77 21:17:00Negative *NA*(12/22/13 4:17 PM) [facility] AENGNY1743-34-82 21:17:00Negative *NA*(12/22/13 4:17 PM) [facility] UOUZSE6524-33-75 21:17:00See Note 4*NA*(12/22/13 4:17 PM) [facility] TSSDFU6386-31-36 21:17:00Negative *NA*(12/22/13 4:17 PM) [facility] LWHOUP6658-62-92 21:17:00Negative *NA*(12/22/13 4:17 PM) [facility] GJEQHP7768-45-99 21:17:00Negative *NA*(12/22/13 4:17 PM) [facility] CZATUE0876-48-97 21:17:00Negative *NA*(12/22/13 4:17 PM) [facility] HGPQBS3261-34-93 21:17:00Negative *NA*(12/22/13 4:17 PM) [facility] WtcqtivOPEVAKKPWU7734-77-51 21:17:00 Test Item Value Reference Range Interpretation Comments PTT (test code = PTT) 35.2 s 22.9-35.8 [facility] VqserthMHVJZMLFQE5626-13-21 21:17:00 Test Item Value Reference Range Interpretation Comments PT (test code = PT) 12.2 s 12.0-14.7 [facility] NtkhqiuGMQBRRUVCU4547-46-66 21:17:000.91[facility]annHEMATOLOGY 2013-12-22 21:17:008.4[facility] VnvkcmjUVLNAMJHDC6183-59-32 21:17:00 Test Item Value Reference Range Interpretation Comments MCH (test code = MCH) 29.2 pg 27.0-31.0 [facility] ZhxryleIZIOUDWHPN7723-83-39 21:17:0033.4[facility]annHEMATOLOGY 2013-12-22 21:17:0014.5[facility] OsbwsoaMSZVLMILHB0015-55-92 21:17:40155Jxrdxivp ZzvgxwhSVIAGXUAIJ5213-84-00 21:17:0041.6[facility] VcwjvqsMPKZOMDLUM9366-99-28 21:17:0087.5[facility] VeasqqiBOWXUIKVZN9702-64-40 21:17:004.76[facility] QJQLYASNNG1340-72-83 21:17:0013.9[facility] SsaspxvNAGPFWTCHS8838-90-14 21:17:00 8.5[facility] BmiujvcUCNPFXEYNT7104-53-48 21:17:000.2[facility]annHEMATOLOGY 2013-12-22 21:17:000.0[facility] HuslptcAPMYOCVNVG3713-47-05 21:17:0066.1[facility] QiuzawtCGUQKQWBCL2525-98-07 21:17:006.1[facility] ImrdcgbUIMTNDMZZD2070-05-80 21:17:0025.0[facility] PtjmavfIUQVTDLCKE6222-13-82 21:17:002.4[facility] YVKBYDNIGS6695-41-58 21:17:000.4[facility] JrexguzVBSPSBXZZX6322-56-36 21:17:002.1 [facility] XdvzsvoHIQNOBOJOR8465-05-95 21:17:000.5[facility]annHEMATOLOGY 2013-12-22 21:17:005.6[facility]annURINE AND OMOUY3665-39-22 21:17:00Trace *ABN*(12/22/13 4:17 PM)[facility] ZIQMO7815-42-80 21:17:00Negative *NA*(12/22/13 4:17 PM)[facility] FWRUT2655-10-93 21:17:000.2 [facility] HEJAW6880-34-30 21:17:00Small *ABN*(12/22/13 4:17 PM) [facility] GGJSH3991-62-97 21:17:00Negative *NA*(12/22/13 4:17 PM) [facility] FWSTI7169-70-25 21:17:00Negative (12/22/13 4:17 PM) [facility] PQXWV2130-23-51 21:17:00Clear (12/22/13 4:17 PM) [facility] NNZDN6042-56-99 21:17:00Yellow *NA*(12/22/13 4:17 PM) [facility] PYEFK6629-24-64 21:17:00 Test Item Value Reference Range Interpretation Comments UA pH (test code = UA pH) 6.0 1 5.0-8.0 [facility] GKBYJ4560-48-48 21:17:00 Test Item Value Reference Range Interpretation Comments UA Spec Grav (test code = UA Spec 1.015 1 Grav) [facility] GBFJB8979-71-26 21:17:00Negative (12/22/13 4:17 PM) [facility] LWIZM1484-02-48 21:17:00Negative (12/22/13 4:17 PM) [facility]annCHEM DOHJJ4768-19-39 15:55:312.7[facility]annCHEM PANEL 2013-12-17 15:55:312.2[facility] AroikblMMIQIRZRLDOK8914-46-11 15:55:3110.5 [facility] NmbnofhASCQLKYDAOMM8657-74-53 15:55:3191[facility] HermannELECTROLYTES 2013-12-17 15:55:3110[facility] FzpfggjRXZAGDUNROOI8959-12-44 15:55:310.8[facility] VmtbrqjFZOQTKPAQAQZ4770-97-48 15:55:68431Hyndbvcs LxmeufoJGJRXUVJWBFY5494-65-31 15:55:3187[facility] TdosgazGHTUXSQFATUN9664-86-31 15:55:3130[facility] NQPDULIULMRX0692-20-66 15:55:314.5[facility] RojejghVQSUNAZCSEJX9821-39-78 15:55:89048Kvhwwnut JrhqgdkCFLEIEHGCASL0730-93-49 15:55:318.6[facility] GXLBUHDZBL3862-53-37 15:55:310.97[facility] QeepiitDBPYZBJUXM4948-23-51 15:55:31 Test Item Value Reference Range Interpretation Comments PTT (test code = PTT) 32.4 s 22.9-35.8 [facility] FpbbbazTNWVCYOEFN1624-60-31 15:55:31 Test Item Value Reference Range Interpretation Comments PT (test code = PT) 12.8 s 12.0-14.7 [facility] UppxcrtESFQUWBTBG0453-94-63 15:55:3113.7[facility]annHEMATOLOGY 2013-12-17 15:55:314.88[facility] XucuacaOFVKMROFLL3566-60-83 15:55:31 Test Item Value Reference Range Interpretation Comments MCH (test code = MCH) 28.1 pg 27.0-31.0 [facility] JtnlmthDDZLWSQDOT5776-61-29 15:55:3142.1[facility]annHEMATOLOGY 2013-12-17 15:55:3186.4[facility] FrlqemqSWIRTHPTIJ0543-70-65 15:55:3114.3[facility] JcuaeykEXJPWWKBAJ6895-61-81 15:55:3132.5[facility] YvmxqooMAVIDKEZRV4220-75-60 15:55:318.4[facility] NoncnkeKONBXSLVMT0809-96-06 15:55:24828Nvyoacvj Maciej HFWHAPIMCI1941-85-50 15:55:317.2[facility] IphspvoAKFJQSFTVW3552-65-69 15:55:31 10.7[facility] EtjzlqnSRDBZSOAJF9696-19-73 15:55:3127.2[facility]annHEMATOLOGY 2013-12-17 15:55:311.9[facility] WhzfnjuEXSOELBSMA0335-21-69 15:55:313.2[facility] XyjknamMODMFSEDMI2785-35-36 15:55:310.6[facility] OrdfjtbOPZKPGOLWC6714-74-37 15:55:314.2[facility] TejswmxXHIWTYAPNL2697-87-83 15:55:310.2[facility] ZVGTWTENZY2298-76-40 15:55:310.8[facility] XgmjgngRFAQITOOFZ4115-11-72 15:55:31 58.3[facility] HermannPARATHYROID MRXATYB5567-35-92 15:55:191.11[facility] PARATHYROID QCKDFWS4947-84-86 15:55:191.17[facility]annDRUG IWWYDU0480-09-71 03:45:57Negative *NA*(12/16/13 10:45 PM)[facility]annDR[facility] NAEWNG2248-17-62 03:45:57Positive *ABN*(12/16/13 10:45 PM)[facility]annDR[facility] TVJTNT4366-20-35 03:45:57Negative *NA*(12/16/13 10:45 PM)[facility]annDR[facility] DUKBZB0556-94-13 03:45:57Negative *NA*(12/16/13 10:45 PM)[facility]annDR[facility] GDCOFS3704-61-32 03:45:57Negative *NA*(12/16/13 10:45 PM)[facility]annDR[facility] HLWGSC6354-58-38 03:45:57See Note 6(12/16/13 10:45 PM)[facility]annDR[facility] BYIPLK3368-27-62 03:45:57Negative *NA*(12/16/13 10:45 PM)[facility]DR[facility] INRZJG0193-69-11 03:45:57Negative *NA*(12/16/13 10:45 PM)[facility]annCARDIAC PTBBVKR2770-26-74 03:45:0056[facility]annCARDIAC JHTRLAJ1763-99-43 03:45:00<0.010[facility]ARDIAC SDPBXFF1850-91-71 03:45:00<0.02[facility]ann[facility]ARD[facility]AC ENZYMES 2013-12-17 03:45:0013[facility] CyrpjhgCLWLIC6930-46-35 03:45:0018[facility] JIDBNC7888-32-80 03:45:0088[facility] GltumdxKUTPGB5451-92-96 03:45:0088[facility] TgxhktnHZZTSK4693-69-29 03:45:003.08[facility] IeyacvdUTQIRT7335-06-62 03:45:34732 [facility] RipegomLDDRAJ7074-12-34 03:45:0051[facility]annSPECIAL CHEMISTRY 2013-12-17 03:45:005.3[facility] HermannTHYROID BVCVA3549-65-96 03:45:000.870 [facility]AC VVHETOJ3006-10-64 22:09:0042[facility]AC IKGSEFV9838-60-81 22:09:00<0.02[facility] HermannCHEM YIMKI5563-16-19 19:30:00 1.3[facility] PfzjziiEEJVTKBAPB6053-39-03 19:30:00 Test Item Value Reference Range Interpretation Comments PT (test code = PT) 11.8 s 12.0-14.7 [facility] ZrillveYHXGFZSPBZ2684-60-78 19:30:000.87[facility]annHEMATOLOGY 2013-12-16 19:30:00 Test Item Value Reference Range Interpretation Comments PTT (test code = PTT) 31.2 s 22.9-35.8 [facility] VljnkhyPKCOGANCPP2918-60-34 19:30:004.69[facility]annHEMATOLOGY 2013-12-16 19:30:006.6[facility] BkvfzmiHVIALTQQSO5179-20-18 19:30:0040.5[facility] DdgcrfvXEWXYJGUHD0708-99-50 19:30:0086.4[facility] FbraxekFMGVFSTHQK9465-54-06 19:30:0013.6[facility] NxftidtXSMOPWMSKR6940-40-94 19:30:00 Test Item Value Reference Range Interpretation Comments MCH (test code = MCH) 29.0 pg 27.0-31.0 [facility] BtlukbiAOJKUIEKCA6392-25-12 19:30:0033.6[facility]annHEMATOLOGY 2013-12-16 19:30:39798Sdskgqhb HmuegmaACNDGVQSBU3989-76-58 19:30:0013.4[facility] WjqikpmTLCVJIIONM1499-54-15 19:30:008.6[facility] UwfybkxGSOGYIMZKZ9151-64-51 19:30:000.8[facility] NwznmqwLQUHJRRBKO6024-57-11 19:30:000.0[facility] KRUBYQQUTB8451-73-14 19:30:0012.1[facility] YnagwxnCMMCJEFCQD4371-96-55 19:30:00 3.8[facility] IbimkaqZVDWVPXVJF2535-26-65 19:30:000.6[facility]annHEMATOLOGY 2013-12-16 19:30:003.9[facility] FgvejyyANTPGDTIJA1425-06-11 19:30:000.3[facility] BitakckHVEPYCMOZH6808-24-69 19:30:001.6[facility] SbrubtdGFDSXDUGWQ5766-96-06 19:30:0025.0[facility] XmeptstEXBLEVBABX8479-86-64 19:30:0058.5[facility] CHEM SYZRH0466-85-38 17:43:2479[facility] HermannCHEM STCOF5027-98-73 17:43:240.9 [facility]annCHEM XPBAA4521-88-91 17:43:14258Xcylktto HermannCHEM PANEL 2013-12-16 17:43:244.5[facility] HermannCHEM NFOQD7361-64-71 17:43:07184Navggysu HermannCHEM WUAWS4214-19-75 17:43:2478[facility] HermannCHEM IZXCP6934-94-65 17:43:2411[facility]annCHEM QKLXT6544-20-72 17:43:241.0[facility] HermannCHEM LSJBI5390-46-54 17:43:2412[facility] HermannCHEM TVIBM4163-56-13 17:43:243.6 [facility]annCHEM ZOPLM1150-67-46 17:43:2416.5[facility] HermannCHEM PANEL 2013-12-16 17:43:247.2[facility] HermannCHEM XJUWO6008-00-32 17:43:2419[facility] HermannCHEM WWQZS7545-51-89 17:43:2423[facility] HermannCHEM SEHFJ1085-98-46 17:43:249.2[facility] HermannCHEM MGKQJ8454-95-11 17:43:240.3[facility] HermannCHEM VGASW9194-49-14 17:43:243.6[facility] HermannCHEM DCETV9379-19-05 17:43:2487 [facility]annCHEM VJBYD1971-18-20 17:43:2431[facility]annCARDIAC ENZYMES 2013-12-16 17:43:0056[facility]annCARDIAC ITVPASV0201-85-53 17:43:00<0.02 [facility]annCARDIAC ODUIASL1913-44-86 19:12:00<0.02[facility] CARDIAC GACHOHX3973-08-56 19:12:0049[facility]annCARDIAC TJVIMEG2382-92-87 19:12:00<0.010[facility] CrisfsnPBMDVQGRQ4131-96-66 19:12:0036[facility] CARDIAC NFTDYLU7786-16-48 12:35:00<0.010[facility]annCARDIAC ENZYMES 2013-11-08 12:35:0054[facility]annCARDIAC TUMBECV3177-58-96 12:35:00<0.02 [facility]annCARD[facility]AC VAOEXJT9835-64-13 08:36:00<0.02[facility] RIKDMNOUCNAX3993-57-28 08:36:0011.4[facility] UymfluhHDMBFYGFZUZD9565-68-10 08:36:0069[facility] JvcjgflHBBBNQIRCEDD5435-71-57 08:36:009.2[facility] SAUHVIJWPVOY4121-01-11 08:36:0027[facility] ItjnbzaIMHUNONYQELN4478-70-20 08:36:00 105[facility] GspqvcpZPYVLKZCNRFL8435-86-84 08:36:003.4[facility] LKXETHRXRRNS6874-75-12 08:36:37533Swjzlhpx TgirqxkLENSLVOYFKTA2516-12-86 08:36:0011[facility] AsgqthzACUJBNNHQNBE7638-51-84 08:36:0084[facility] OFHBAIMERIZZ7952-40-15 08:36:001.0[facility] KqihwypZWKPGCRPXT0367-14-36 08:36:00 0.1[facility] VfttlrxPUYOEMSMML3052-35-88 08:36:000.2[facility] HermannHEMATOLOGY 2013-11-08 08:36:000.8[facility] HrudfxqXKBRRIJZXP9055-71-50 08:36:0072.5[facility] StmyxseOBIGEEKMWD2855-41-60 08:36:0017.0[facility] UvipzyrRDKZNUCTWK5767-31-98 08:36:002.1[facility] ZilgitxXUYZXVJROR9243-58-56 08:36:007.8[facility] RFSZQFYRIP0334-52-88 08:36:007.6[facility] RzbilumVPKPSBPLMC1479-67-97 08:36:000.6 [facility] RmnlbdkAJSEXNUUWP8486-18-22 08:36:001.8[facility] HermannHEMATOLOGY 2013-11-08 08:36:008.7[facility] EzchhzbLYMDPMSPLY9597-93-50 08:36:0014.0[facility] WjrcejaXAQKGVTTVA6539-96-66 08:36:21405Ltvkjsqo WvkcnrfCILPAAILWH5279-56-05 08:36:0033.9[facility] HmzoogxWGBWDJOKEQ9764-66-36 08:36:004.65[facility] REMITRCQCR9876-65-53 08:36:0010.6[facility] YricpvxPXWNIJQZQG1096-88-52 08:36:00 Test Item Value Reference Range Interpretation Comments MCH (test code = MCH) 29.3 pg 27.0-31.0 [facility] NcxrlljMZOCRQLGFH4578-89-21 08:36:0086.6[facility] HermannHEMATOLOGY 2013-11-08 08:36:0013.6[facility] UihdzkeCWJYMLIEEO2619-72-12 08:36:0040.2[facility]
[2021-01-21] MEDS ORDERED: ONDANSETRON 4 MG/2 ML VIAL ONE (14:21)
[2021-01-21] MEDS ORDERED: MORPHINE 4 MG/ML SYR ONE (14:21)
[2021-01-21 14:33] LABS: ALT/SGPT 18 U/L (12-78); AST/SGOT 15 U/L (15-37); Albumin 3.8 g/dL (3.4-5.0); Alkaline Phosphatase 108 U/L (45-117); BUN Blood Urea Nitrogen 11 mg/dL (7-18); Bicarbonate 24 mmol/L (21-32); Bilirubin Direct 0.2 mg/dL (0-0.2); Bilirubin Total 0.6 mg/dL (0.2-1.0); Glucose Level 93 mg/dL (74-106); Magnesium 2.2 mg/dL (1.8-2.4); NT PRO-BNP 14 pg/mL (<125); Potassium 3.9 mmol/L (3.5-5.1); Protein, Total 7.5 g/dL (6.4-8.2); Sodium Level 143 mmol/L (136-145); Troponin (Emerg Dept Use Only) < 0.02 ng/mL (0.0-0.045)
[2021-01-21 14:38] LABS: Absolute Lymphocytes (CBC) 1.7 K/uL (0.7-4.9); Basophils % 0.8 % (0-1.3); Hematocrit 43.1 % (36.0-45.0); Lymphocytes % 26.7 % (15.3-44.8); MPV 8.3 fL (7.6-11.3); RBC Red Blood Cell Count 5.03 M/uL (3.86-4.86)
[2021-01-21 14:39] LABS: Protime INR 0.97
--- NOTE | 2021-01-21 14:41 | RAD REPORT ---
EXAM DESCRIPTION: US - Abdomen Exam Limited - 01/21/2021 2:33 pm CLINICAL HISTORY: Abdominal pain. COMPARISON: December 2020 cat scan FINDINGS: The gallbladder wall is not thickened. A gallstone is not seen. The biliary tree is normal caliber. IMPRESSION: Unremarkable gallbladder ultrasound.
--- NOTE | 2021-01-21 14:51 | RAD REPORT ---
EXAM DESCRIPTION: Leila Single View01/21/2021 2:25 pm CLINICAL HISTORY: Chest pain COMPARISON: January 06, 2021 FINDINGS: The lungs appear clear of acute infiltrate. The heart is normal size IMPRESSION: No acute abnormalities displayed
[2021-01-21] MEDS ORDERED: NA CHLORIDE 0.9% 500 ML ONE ×2 (15:17→16:24)
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
[2021-01-21 21:15] VITALS: TEMP 97.6
[2021-01-21 21:34] VITALS: BP 104/71; O2SAT 98
--- NOTE | 2021-01-22 09:00 | EKG ---
Test Date: 2021-01-21 Test Time: 13:57:08 Bioinformatics Engineer: DEEPA MEASUREMENT RESULTS: Intervals: Rate: 77 MA: 136 QRSD: 82 QT: 390 QTc: 441 [place]: P: -10 MA: 136 QRS: 16 T: -8 INTERPRETIVE STATEMENTS: Sinus rhythm with premature atrial complexes with aberrant conduction Nonspecific T wave abnormality Abnormal ECG Compared to ECG 12/15/2020 15:53:24 Atrial premature complex(es) now present Aberrant conduction of supraventricular beat(s) now present T-wave abnormality now present Electronically Signed On 01-22-21 08:58:52 CDT by Clint Norris
--- NOTE | 2021-01-22 09:00 | EKG ---
Test Date: 2021-01-21 Test Time: 16:20:31 Sterile Instrument Technician: TAHIR MEASUREMENT RESULTS: Intervals: Rate: 65 VA: 162 QRSD: 84 QT: 414 QTc: 430 [place]: P: 78 VA: 162 QRS: 61 T: 77 INTERPRETIVE STATEMENTS: Sinus rhythm with premature supraventricular complexes Otherwise normal ECG Compared to ECG 01/21/2021 13:57:08 Aberrant conduction of supraventricular beat(s) no longer present T-wave abnormality no longer present Electronically Signed On 01-22-21 08:58:49 CDT by Clint Norris
== END 2021-01-21 18:57 | disposition home or self-care (01) ==
LOC: ER 13:30
DX: R10.10 Upper abdominal pain, unspecified (principal); F17.210 Nicotine dependence, cigarettes, uncomplicated; J45.909 Unspecified asthma, uncomplicated; E78.00 Pure hypercholesterolemia, unspecified; I10 Essential (primary) hypertension; I25.2 Old myocardial infarction; D57.1 Sickle-cell disease without crisis
CPT/HCPCS: 96361; 93005 ×2; 85025; 80048; 36415; 83735; 85610; 80076; 84484 ×2; 83690; 83880; 71045; 76705; 96375; 96374; 99284; J7040 ×2; J2405

== ENCOUNTER 2021-03-18 19:20 | Emergency (ER) | payer OTHER ==
--- OUTSIDE RECORDS SUMMARY | 2021-03-18 19:38 | XMS REPORT | Continuity of Care Document ---
:1950 Author Organization [facility] t Address [address] [place] [address] Care Team Providers Name Role Phone UNKNOWN Primary Care Physician Unavailable Kane Ryan MD Attending Clinician Varun Patel Attending Clinician Lida Stratton Attending Clinician Melody Bello Attending Clinician Orlando Nava Attending Clinician Jcaek Mendes Attending Clinician Neville Benitez Attending Clinician [...] Memoria PAIN 5-24 13:12:00 l UPPER 00:00: [place] ABD PAIN 00 Active 01/19/2017 [facility] CHEST PAIN Diagnosis Active 2017-01-16 Memoria 5-21 20:56:00 l CHEST 00:00: [place] PAIN 00 [facility]16[facility] PAIN Diagnosis Active 2016-11-28 Mem oria 4-02 20:00:00 l PAIN 00:00: [place] 00 Active [facility]28/2016 [facility] FACIAL Diagnosis Active 2016-11-06 Mem oria SWELLING 3-11 18:35:00 l FACIAL 00:00: Maciej SWELLING 00 Active 11/06/2016 [facility] SYNCOPE Diagnosis Active 2017-02-18 Me moria 2-12 10:16:00 l SYNCOPE 00:00: [place] 00 Active 10/10/2016 [facility] SICK Diagnosis Active 2017-0 2016-10-10 Mem oria 2-12 20:58:00 l SICK 00:00: [place] 00 Active 10/10/2016 [facility] CHEST Diagnosis Active 2016-03-12 Mem oria PAIN, 7-14 12:26:00 l HYPOTENSIO CHEST 00:00: Caroline nn N PAIN, 00 HYPOTENSIO N Active 03/11/2016 [facility] SOB Diagnosis Active 2016-03-11 Mem oria 7-14 15:11:00 l SOB 00:00: Maciej 00 Active 03/11/2016 [facility] BACK PAIN Diagnosis Active 2016-10-12 Memoria 1-17 14:26:00 l BACK 00:00: Maciej PAIN 00 Active 09/14/2015 [facility] COPD, Diagnosis Active 2015-09-05 Mem oria CHEST PAIN 09-03 15:21:00 l COPD, 00:00: [place] CHEST PAIN 00 Active 09/03/2015 [facility] HEADACHE Diagnosis Active 2014-082015-07-15 M emoria 09-14 17:17:00 l HEADACHE 00:00: Kristopher n 00 Active 07/15/2015 [facility] SOB/ Diagnosis Active 2014-082015-07-05 Mem oria WEAKNESS 09-03 01:33:00 l SOB/ 22:00: [place] WEAKNESS 00 Active 07/04/2015 [facility] LOWER BACK Diagnosis Active 2014-082015-07-11 Memoria AND LEG 1 13:07:00 l PAIN LOWER 00:00: Maciej BACK AND 00 LEG PAIN Active 07/04/2015 [facility] SHORTNESS Diagnosis Active 2014-082015-06-04 Memoria OF BREATH 0-06 01:54:00 l 19:00: Maciej SHORTNESS 00 OF BREATH Active 06/03/2015 [facility] NAUSEA Diagnosis Active 2015-05-20 Mem oria 05-18 07:49:00 l NAUSEA 00:00: Maciej 00 Active 05/18/2015 [facility] FALL Diagnosis Active 2015-05-02 Mem oria 05-02 16:55:00 l FALL 00:00: [place] 00 Active 05/02/2015 [facility] NECK AND Diagnosis Active 2015-03-30 M emoria SHOULDER 03-30 16:35:00 l PAIN NECK AND 00:00: Kristopher n SHOULDER 00 PAIN Active 03/30/2015 [facility] HYPOTENSIO Diagnosis Active 2015-03-31 Memoria N, CHEST 03-21 11:41:00 l PAIN 00:00: Maciej HYPOTENSIO 00 N, CHEST PAIN Active 03/21/2015 [facility] SOB/CHEST Diagnosis Active 2015-03-21 Memoria PAIN 03-21 15:46:00 l 00:00: Maciej SOB/CHEST 00 PAIN Active 03/21/2015 [facility] LOWER BACK Diagnosis Active 2015-03-11 Memoria PAIN 03-11 15:56:00 l LOWER 00:00: Maciej BACK PAIN 00 Active 03/11/2015 [facility] ACUTE Diagnosis Active 2015-02-26 Mem oria CHEST PAIN 02-24 09:02:00 l ACUTE 00:00: Maciej CHEST PAIN 00 Active 02/24/2015 [facility] UPPER BACK Diagnosis Active 2015-02-24 Memoria PAIN 02-24 15:44:00 l UPPER 00:00: Maciej BACK PAIN 00 Active 02/24/2015 [facility] UNSTABLE Diagnosis Active 2015-02-19 M emoria ANGINA; 02-16 13:44:00 l HYPOTENSIO UNSTABLE 00:00: He rmann N ANGINA; 00 HYPOTENSIO N Active 02/16/2015 [facility] CHEST/LEG Diagnosis Active 2013-12-22 Memoria PAIN 12-22 18:23:00 l 00:00: Maciej CHEST/LEG 00 PAIN Active 12/22/2013 [facility] ACS Diagnosis Active 2013-12-18 Mem oria 4-20 15:44:00 l ACS 00:00: [place] 00 Active 12/16/2013 [facility] OTHER Diagnosis Active 2013-12-16 Mem oria 4-20 20:50:00 l OTHER 00:00: Maciej 00 Active 12/16/2013 [facility] Stented Problem Resolve 2017-01-22 Mem oria coronary d 04:26:21 l artery Stented Maciej (finding) coronary artery (finding) Resolved Problem 01/22/2017 [facility], [facility] Heart Problem Active 2013-12-28 Memor ia disease 01:02:24 l (disorder) Heart Caroline nn disease (disorder) Active Problem 12/28/2013 [facility] Asthma Problem Active 2017-01-22 Memor ia (disorder) 04:26:21 l Asthma [place] (disorder) Active Problem 01/22/2017 [facility], [facility] Cardiac Problem Active 2017-01-22 Eleazar hilton chest pain 04:26:21 l (finding) Cardiac Herm sho chest pain (finding) Active Problem 01/22/2017 [facility], [facility] Hypertensi Problem Active 2017-01-22 M emoria ve 04:26:21 l disorder, [place] systemic Hypertensi arterial ve (disorder) disorder, systemic arterial (disorder) Active Problem 01/22/2017 [facility], [facility] Hyperlipid Problem Active 2017-01-22 M emoria emia 04:26:21 l (disorder) Kristopher n Hyperlipid emia (disorder) Active Problem 01/22/2017 [facility], [facility] Myocardial Problem Active 2017-01-22 M emoria infarction 04:26:21 l (disorder) Kristopher n Myocardial infarction (disorder) Active Problem 01/22/2017 [facility], [facility] Smoking Problem Active 2017-01-22 Eleazar hilton cessation 04:26:21 l advice Smoking Maciej (regime/th cessation erapy) advice (regime/th erapy) Active Problem 01/22/2017 [facility], [facility] Substance Problem Active 2017-01-22 Me moria abuse 04:26:21 l (disorder) Kristopher n Substance abuse (disorder) Active Problem 01/22/2017 [facility] [employer] Tissue Problem Active 2017-01-22 Memor ia perfusion 04:26:21 l measure Tissue [place] (observabl perfusion e entity) measure (observabl e entity) Active Problem 01/22/2017 [facility], [facility] INTERMED Diagnosis Active 2013-12-18 M emoria CORONARY 15:44:00 l SYND INTERMED Kristopher n CORONARY SYND Active [facility] HYPOTENSIO Diagnosis Active 2015-03-31 Memoria N NOS 11:41:00 l Maciej HYPOTENSIO N NOS Active [facility] ANGINA Diagnosis Active 2015-02-19 Mem oria DECUBITUS 13:44:00 l ANGINA Maciej DECUBITUS Active [facility] SYNCOPE Diagnosis Active 2017-02-18 Me moria AND 10:16:00 l COLLAPSE SYNCOPE Caroline nn AND COLLAPSE Active [facility] History of Past Illness Condition Condition Condition Status Onset Resolution Last Treating Co mments Source Name Details Category Date Date Treatment Clinician Date Chest Problem 2017-01-19 2017-01-19 M emoria pain, 01-16 00:39:08 00:39:08 l unspecifie Chest 05:00: Caroline nn d pain, 00 unspecifie d 01/16/2017 01/19/2017 [facility] Urinary Problem 2016-12-01 2016-12-01 Memoria tract 4- 00:38:41 00:38:41 l infection, Urinary 05:00: Her farooq site not tract 00 specified infection, site not specified 11/28/2016 12/01/2016 [facility] Dorsalgia, Problem 2016-12-01 2016-12-01 Memoria unspecifie 4- 00:38:41 00:38:41 l d 05:00: Maciej Dorsalgia, 00 unspecifie d 11/28/2016 12/01/2016 [facility] Bitten or Problem 2016-11-09 2016-11-09 Memoria stung by 3-11 03:02:23 03:02:23 l nonvenomou Bitten 06:00: Herm sho s insect or stung 00 and other by nonvenomou nonvenomou s s insect arthropods and other , initial nonvenomou encounter s arthropods , initial encounter 11/06/2016 11/09/2016 [facility] Discharge Problem 2016-04-17 2016-04-17 Memoria Diagnosis: 04-14 03:14:09 03:14:09 l Syncope, 05:00: Maciej near Discharge 00 Diagnosis: Syncope, near 04/14/2016 04/17/2016 [facility] Discharge Problem 2016-03-08 2016-03-08 Memoria Diagnosis: 03-05 04:59:23 04:59:23 l Trichomona 05:00: Kristopher n s Discharge 00 vaginitis Diagnosis: Trichomona s vaginitis 03/05/2016 03/08/2016 [facility] Discharge Problem 2015-2016-03-08 2016-03-08 Memoria Diagnosis: 03-05 04:59:23 04:59:23 l Lumbago 05:00: Maciej Discharge 00 Diagnosis: Lumbago 03/05/2016 03/08/2016 [facility] Discharge Problem 2015-2016-03-03 2016-03-03 Memoria Diagnosis: 02-28 00:43:25 00:43:25 l Bronchitis 05:00: Kristopher n Discharge 00 Diagnosis: Bronchitis 02/29/2016 03/03/2016 [facility] Discharge Problem 2015-05-21 2015-05-21 Memoria Diagnosis: 05-18 01:04:08 01:04:08 l Abdominal 05:00: [place] pain, Discharge 00 acute, Diagnosis: epigastric Abdominal pain, acute, epigastric 05/18/2015 05/21/2015 [facility] Discharge Problem 2015-05-12 2015-05-12 Memoria Diagnosis: 05-09 07:40:44 07:40:44 l Chest pain 05:00: Kristopher n Discharge 00 Diagnosis: Chest pain 05/09/2015 05/12/2015 [facility] Discharge Problem 2015-05-05 2015-05-05 Memoria Diagnosis: 05-02 10:45:36 10:45:36 l Vertigo 05:00: [place] Discharge 00 Diagnosis: Vertigo 05/02/2015 05/05/2015 [facility] Discharge Problem 2015-05-05 2015-05-05 Memoria Diagnosis: 05-02 10:45:36 10:45:36 l Syncope 05:00: [place] and Discharge 00 collapse Diagnosis: Syncope and collapse 5 05/05/2015 [facility] Discharge Problem 2015-04-14 2015-04-14 Memoria Diagnosis: 04-11 05:25:30 05:25:30 l Knee pain, 05:00: Kristopher n right Discharge 00 Diagnosis: Knee pain, right 04/11/2015 04/14/2015 [facility] Discharge Problem 2015-04-14 2015-04-14 Memoria Diagnosis: 04-11 05:25:30 05:25:30 l Lumbar 05:00: Maciej spondylosi Discharge 00 s Diagnosis: Lumbar spondylosi s 04/11/2015 04/14/2015 [facility] Discharge Problem 2015-04-14 2015-04-14 Memoria Diagnosis: 04-11 05:25:30 05:25:30 l Anterolist 05:00: Kristopher n hesis Discharge 00 Diagnosis: Anterolist hesis 04/11/2015 04/14/2015 [facility] Discharge Problem 2015-04-14 2015-04-14 Memoria Diagnosis: 04-11 05:25:30 05:25:30 l Accidental 05:00: Kristopher n fall Discharge 00 Diagnosis: Accidental fall 04/11/2015 04/14/2015 [facility] Discharge Problem 2015-04-02 2015-04-02 Memoria Diagnosis: 03-30 00:46:48 00:46:48 l Chronic 05:00: [place] pain in Discharge 00 right Diagnosis: shoulder Chronic pain in right shoulder 5 04/02/2015 [facility] Discharge Problem 2015-03-14 2015-03-14 Memoria Diagnosis: 03-11 09:47:20 09:47:20 l Chest wall 05:00: Kristpoher n muscle Discharge 00 strain Diagnosis: Chest wall muscle strain 03/11/2015 03/14/2015 [facility] Discharge Problem 2015-03-08 2015-03-08 Memoria Diagnosis: 03-05 04:07:57 04:07:57 l Dyspnea 05:00: [place] Discharge 00 Diagnosis: Dyspnea 03/05/2015 03/08/2015 [facility] Allergies, Adverse Reactions, Alerts Allergy Allergy Status Severity Reaction(s) Onset Inactive Treating Comm ents Source Name Type Date Date Clinician Penicill Propensi Active Justin ins ty to 07 Health adverse 00:00: reaction 00 s to drug penicill penicill Active Pari a ins ins l [place] Social History Social Habit Start Date Stop Date Quantity Comments Source Sex Assigned At [facility] Social History 2016-10-10 2016-10-10 Cinthia murray [...] Cam ris (NAPROSYN) 7-11 bilateral tablet by [employer] 375 mg 00:00: low back mouth 2 tablet 00 pain, with times sciatica daily as presence needed (as unspecified needed for pain). Sodium No 1,000 mL, Memori a Chloride 5-24 2,000 l 0.154 18:00: ml/hr, [place] MEQ/ML 00 Infuse Injectable Over: 30 Solution [...] tab, PO, l tablet 01:43: TID, PRN [place] 00 for dizziness, # 60 tab, 0 [...] INHALATION l 0.09 03:43: , Q4H, PRN [place] MG/ACTUAT 00 as needed Dry Powder for [...] oria - to exceed l 03:02: 400mg/day. [place] 00 (Same As: Ultram) Albuterol No Notes: Memori a 0.833 MG/ML -03 (Same as: l / 00:23: Duoneb) [place] Ipratropium 00 Kenneth 0.167 MG/ML Inhalant Solution [DuoNeb] Saline No Notes: Memoria Flush 0.9% -03 preservati l 00:23: ve free. [place] 00 Mupirocin Yes 1 appl, Memor ia 0.02 MG/MG 3-12 TOP, TID, l Topical 02:49: PRN as [place] Ointment 00 needed, [Bactroban] Apply to affected area(s), X 14 day, # 60 gm, 0 Refill(s) Saline No Notes: Memoria Flush 0.9% 3-12 (Same as: l 00:51: BD [place] 00 Posiflush) atorvastati No Notes: Eleazar hilton n 2-14 Same as l 03:00: Lipitor Maciej 00 remove No Notes: Memoria patch 2-14 Remove l 03:00: patch 12 [place] 00 hours after applicatio n each day. metoprolol No Notes: Memor ia tartrate 2-13 (Same as: l 15:00: Lopressor) [place] 00 12.5 mg=1/2 X 50 mg TAB heparin No Notes: Memoria sodium, 2-13 porcine l porcine 15:00: heparin Maciej 2500 UNT/ML 00 Injectable Solution Protonix No Notes: Memoria 2-13 Tablet l 15:00: should not [place] 00 be chewed or crushed. 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, Duration: 30 day, Stop date: 11/09/16 17:00:00 [...] / 2-13 (Same as: l Hydrocodone 02:07: Moriarty Caroline nn Bitartrate 00 325/5) Do 5 [...] Weight 50, kg, Start date: 09/15/16 9:00:00 FLORAL ASSISTANT, Duration: 30 day, Stop date: 10/14/16 9:00:00 FLORAL ASSISTANT tramadol Yes 50 mg = 1 Eleazar hilton hydrochlori 8-17 tab, PO, l de 50 MG 06:12: BID, X 15 Herm sho Oral Tablet 00 day, # 30 tab, 0 Refill(s) Acetaminoph No Notes: Eleazar hilton en 325 MG / 8-17 (Same as: l Hydrocodone 05:13: Moriarty Caroline nn Bitartrate 00 325/5) Do 5 MG Oral not exceed Tablet 4gm/day of [Moriarty acetaminop 5/325] hen. atorvastati No Notes: Eleazar hilton n 7-16 (Same as: l 02:00: Lipitor) [place] 00 200 ACTUAT No Notes: Memor ia Albuterol 7-15 Same as: l 0.09 16:00: Ventolin [place] MG/ACTUAT 00 HFA Metered WASTE: Dose Aerosol [...] -15 Take with l Tablet 14:00: food. [place] 00 tramadol No Notes: Not Mem oria [...] 0.9% -15 (Same as: l 02:00: BD [place] Posiflush) Saline No Notes: Memoria Flush 0.9% -14 (Same as: l 23:45: BD [place] 00 Posiflush) Sodium No 1,000 mL, Memori [...] 0.9% 03-11 (Same as: l 20:05: BD [place] 00 Posiflush) Nitroglycer No Notes: Eleazar hilton in 03-11 (Same l 20:05: as:Nitroqu [place] ick, Nitrostat) "Do Not Crush" Sublingual tablet [...] / 03-06 (Same as: l Hydrocodone 00:55: Moriarty Caroline nn Bitartrate 00 325/5) Do 5 MG Oral not exceed Tablet 4gm/day of [[place]oriarty acetaminop 5/325] hen. Flagyl No Notes: Memoria 03-06 (Same as: l 00:55: Flagyl) [place] 00 Take with food/ avoid alcohol predniSONE Yes 40 mg = 2 Me moria 20 mg oral 03-01 tab, PO, l tablet 01:00: Daily, X 3 Caroline nn 00 day, # 6 tab, 0 Refill(s) 200 ACTUAT Yes 2 puff, Eleazar hilton Albuterol 7-04 INHALATION l 0.09 01:00: , Q4H, PRN [place] MG/ACTUAT 00 for Metered wheezing, Dose # 9 gm, 0 Inhaler Refill(s) [ProAir HFA] Potassium No Notes: Memori a Chloride 20 02-28 (Same as: l MEQ 23:48: K-Dur 20) Maciej Extended 00 "Do Not Release Crush" Tablet With food and full glass of water Albuterol No Notes: Memori a 0.833 MG/ML 02-28 (Same as: l / 22:53: Duoneb) [place] Ipratropium 00 Kenneth 0.167 MG/ML Inhalant Solution [DuoNeb] Symbicort Yes 2 puff, Memor ia 160/4.5 1-08 INHALATION l inhalation 13:20: , BID, # 1 H ermann aerosol 00 ea, 1 with Refill(s) adapter predniSONE Yes See Memoria 10 mg oral -08 Special l tablet 13:20: Instructio Carloine nn 00 ns, PO, Daily, 6 day [...] n -08 (Same as: l 03:00: Lipitor) [place] 00 Solu-Medrol No Notes: Eleazar hilton -07 (Same l 22:00: as:Solu-ME [place] 00 DROL, A-Methapre d) 24 HR No [...] as: l / 14:00: Duoneb) Ipratropium 00 Kenneth 0.167 MG/ML Inhalant Solution methylPREDN No Notes: Eleazar hilton ISolone 09-04 (Same l SODium 14:00: as:Solu-ME Caroline nn SUCCinate 00 DROL, A-Methapre d) methylPREDN No Notes: Eleazar hilton ISolone 09-04 (Same l SODium 04:05: as:Solu-ME Caroline nn SUCCinate 00 DROL, A-Methapre d) Albuterol No Notes: Memori a 0.833 MG/ML 09-04 (Same as: l / 04:05: Duoneb) Maceij Ipratropium 00 Kenneth 0.167 MG/ML Inhalant Solution Saline No Notes: [...] tab, PO, l tablet 17:40: Daily, # [place] 00 30 tab, 1 Refill(s) atorvastati 2014-08 [...] 1-18 (Same as: l / 03:38: Duoneb) [place] Ipratropium 00 Kenneth 0.167 MG/ML Inhalant Solution Sodium 2014-08 No 250 mL, Memoria Chloride 09-15 Route: l 0.9% IV 03:26: IVPB, [place] 00 Start date: 07/15/15 21:26:00, Duration: 30 day, Stop date: 08/14/15 21:25:00, PRN Line Flush BD Normal 2014-08 No Notes: Memori a Saline 09-15 (Same as: l Flush 03:26: BD [place] Posiflush) Nitroglycer 2014-08 No Notes: Eleazar hilton in 09-15 (Same l 03:23: as:Nitroqu [place] 00 ick, Nitrostat) "Do Not Crush" Sublingual [...] 09-15 Rate: 125 l 0.0769 02:39: ml/hr, [place] MEQ/ML 00 Infuse Injectable over: 8 Solution hr, Route: IV, Dosing Weight 50 kg, Total Volume: 1,000, Start date: 07/15/15 20:39:00, Duration: 30 day, Stop date: 08/14/15 20:38:00 Saline 2014-08 No Notes: Memoria Flush 0.9% 09-15 (Same as: l 02:39: BD [place] Posiflush) Aspirin 2014-08 No 324 mg, Memoria 09-14 Route: PO, l 20:15: ONCE, [place] 00 Dosing Weight 50, kg, Priority: STAT, Start date: 07/15/15 14:15:00, Stop date: 07/15/15 14:15:00 Saline 2014-08 No Notes: Memoria Flush 0.9% 1-17 (Same as: l 20:15: BD Posiflush) Sodium No 500 mL, Memoria Chloride 05-18 500 ml/hr, l 0.154 21:02: Infuse [place] MEQ/ML 00 Over: 1 Injectable Hour, Solution [...] / 04-11 Same as l Hydrocodone 17:21: Moriarty Caroline nn Bitartrate 00 325-7.5mg 7.5 MG Oral Do not Tablet exceed [Moriarty 4gm/day of 7.5/325] acetaminop hen. ibuprofen Yes [...] Memoria - (Same as: l 23:10: Motrin) [place] 00 "Do Not Crush" Take with food. [...] tab, PO, l tablet 02:19: Daily, # [place] 00 30 tab, 0 Refill(s) omeprazole Yes 20 mg = 1 Me moria 20 mg oral 7-25 tab, PO, l enteric 02:19: BID, # 60 Caroline nn coated 00 tab, 0 tablet Refill(s) atorvastati Yes 80 mg = 2 M emoria n 40 mg 7-25 tab, PO, l oral tablet 02:19: Bedtime, # [place] 00 90 tab, 0 Refill(s) 200 ACTUAT Yes 1 puff, Eleazar hilton Albuterol 7-25 INHALATION l 0.09 02:19: , Q4H, PRN [place] MG/ACTUAT 00 for Metered wheezing, Dose # 9 gm, 0 Inhaler Refill(s) Ondansetron No Notes: Eleazar hilton 7-25 (Same as: l 02:12: Zofran) Maciej MEDICATION WASTE Product Size: 4 mg Product Wasted: ___ mg Docusate No Notes: Memoria 7-25 (Same as: l 02:12: Colace) Maciej (Do Not Crush) Acetaminoph No Notes: Do M emoria en 7-25 not exceed l 02:12: 4 gm/day. [place] (Same as: Tylenol) Budesonide No Notes: Memor ia 0.25 MG/ML 7-25 (Same As: l Inhalant 01:00: Pulmicort) Her farooq Solution 00 [Pulmicort] Albuterol No Notes: Memori a 0.833 MG/ML 03-22 (Same as: l / 01:00: Duoneb) Maciej Ipratropium 00 Kenneth 0.167 MG/ML Inhalant Solution [DuoNeb] Potassium No [...] hilton -24 (Same as: l 20:43: Zofran) [place] MEDICATION WASTE Product Size: 4 mg Product [...] Memoria - Take with l 20:32: food. [place] 00 Morphine No Notes: Memoria 03-11 (Same l 20:32: as:MORPhin e Sulfate) Ondansetron No Notes: Eleazar hilton 03-11 (Same as: l 20:32: Zofran) MEDICATION WASTE Product Size: 4 mg Product Wasted: ___ mg Saline No Notes: Memoria Flush 0.9% 03-11 (Same as: l 20:32: BD [place] 00 Posiflush) Famotidine No 20 mg, 1 [...] INHALATION l 0.09 09:12: , Q4H, PRN [place] MG/ACTUAT 00 for Metered wheezing, Dose # [...] hilton 08 Route: PO, l 07:16: Dosing [place] 00 Weight 50, kg, ONCE, STAT, Start [...] TOP, l 0.875 MG/HR 13:32: Daily, X [facility] Transdermal 56 14 day, # Patch 14 patch, [Nicoderm 0 C-Q] Refill(s) atorvastati Yes 40 mg = 2 M emoria n 20 mg 6-30 tab, PO, l oral tablet 13:32: Bedtime, # [place] 46 60 tab, 0 Refill(s) omeprazole Yes [...] oral tablet 13:32: [facility], # 30 tab, 0 Refill(s) clopidogrel Yes 75 mg = 1 M emoria 75 MG Oral 6-30 tab, PO, l Tablet 13:32: Daily, # [place] [Plavix] 00 30 tab, 0 Refill(s) Protonix [...] 02-24 not exceed l 22:20: 4 gm/day. [place] 00 (Same as: Tylenol) Aspirin No Notes: [...] PO, l oral tablet 20:24: Bedtime, # [place] 00 30 tab, 0 Refill(s) omeprazole Yes [...] PO, l oral tablet 17:00: Bedtime, # [place] 00 60 tab, 0 Refill(s) Nicotine No Notes: Memoria 6-22 (Same as: l 14:00: Habitrol) [place] 00 "Remove old patch before applicatio n of new patch" Aspirin 81 No Notes: Do Me moria MG Enteric -22 not crush l Coated 14:00: or chew. [place] Tablet 00 (Same As: Ecotrin) Sodium No [...] tab, PO, l Coated 02:37: Daily, # [place] Tablet 00 90 tab, 3 Refill(s) clopidogrel Yes 75 mg = 1 M emoria 75 MG Oral 02-17 tab, PO, l Tablet 02:37: Daily, # Maciej [Plavix] 00 30 tab, 0 Refill(s) Enoxaparin No Notes: Memor ia 02-17 Nurse to l 02:30: ensure [place] 00 documentat ion of patient education per [...] rphan 02-17 (dextromet l Hydrobromid 02:08: horphan-gu [place] e 2 MG/ML / 00 aifenesin Guaifenesin [...] / 02-17 (Same as: l Hydrocodone 02:06: Moriarty Caroline nn Bitartrate 00 325/5) Do 5 MG Oral not exceed Tablet 4gm/day of acetaminop hen. Morphine No Notes: Memoria 02-17 (Same l 02:06: as:MORPhin [place] 00 e Sulfate) Sodium No 1,000 mL, Memori a Chloride 02-17 Rate: 125 l 0.154 02:06: ml/hr, [place] MEQ/ML 00 Infuse Injectable over: 8 Solution [...] Notes: Memoria 02-17 (Same l 00:28: as:MORPhin [place] 00 e Sulfate) Nitroglycer No Notes: Eleazar hilton in 02-17 (Same l 00:28: as:Nitroqu [place] 00 ick, Nitrostat) "Do Not Crush" Sublingual tablet Aspirin No Notes: (Do Eleazar hilton 02-16 Not Crush) l 22:49: Do not [place] crush or chew. Ondansetron No Notes: Eleazar hilton 12-22 (Same as: l 21:22: Zofran) Morphine No Notes: Memoria 12-22 (Same l 21:22: as:MORPhin Maciej e Sulfate) Aspirin / No Notes: Memori a Calcium 12-22 Take with l Carbonate 21:22: food. Aspirin 81 Yes 81 mg = 1 Me moria MG Enteric 4-21 tab, PO, l Coated 20:08: Daily, # Maciej Tablet 00 90 tab, 0 Refill(s) metoprolol [...] PO, l oral tablet 20:08: Bedtime, # [place] 00 90 tab, 0 Refill(s) metoprolol No [...] 0.9% -21 (Same as: l 14:00: BD [place] 00 Posiflush) Adenosine No 41.6178 Memor ia [...] hilton in 12-17 (Same l 03:25: as:Nitroqu [place] 00 ick, Nitrostat) "Do Not Crush" Sublingual tablet atorvastati No 20 mg = 1 M emoria n 20 mg 21 tab, PO, l oral tablet 01:48: Bedtime, # [place] 00 30 tab, 0 Refill(s) clopidogrel No [...] 4-20 Instructio l 21:17: ns: Dose = [place] 00 2.2ml/kg, Max dose = 100ml -- "To be infused by Radiology Staff ONLY" Sodium No 1,000 mL, Memori a Chloride 4-20 1,000 l 0.154 19:43: ml/hr, [place] MEQ/ML 00 Infuse Injectable Over: 1 Solution [...] hilton 4-20 G.I. l 17:54: Cocktail = [place] 00 antacid with simethicon e 22.5 mL [...] PO, l oral tablet 20:52: Bedtime, # [place] 00 30 tab, 0 Refill(s) Aspirin 81 Yes 81 mg = 1 Me moria MG Chewable 3-13 tab, PO, l Tablet 20:52: Daily, # Maciej 00 60 tab, 0 Refill(s) Plavix No 75 mg, 1 Memoria 3-13 tab, l 14:00: Route: PO, [place] 00 Drug form: TAB, Daily, Dosing Weight [...] Systolic (mm Hg) 2017-01-19 23:16:00 [facility] [place] Diastolic (mm Hg) 2017-01-19 23:16:00 [facility] [place] Respitory Rate 2017-01-19 23:16:00 [facility] [place] Systolic (mm Hg) 2017-01-19 22:28:00 [facility] Diastolic (mm Hg) 2017-01-19 22:28:00 [facility] [place] Respitory Rate 2017-01-19 22:28:00 [facility] Respitory Rate 2017-01-19 21:00:00 [facility] Systolic (mm Hg) 2017-01-19 20:00:00 [facility] [place] Diastolic (mm Hg) 2017-01-19 20:00:00 [facility] [place] Weight 2017-01-19 17:23:00 [facility] BMI Calculated 2017-01-19 17:23:00 [facility] [place] Height 2017-01-19 17:23:00 152.4 cm [facility] Temperature Oral (F) 2017-01-19 17:23:00 97.0 F [facility] [place] Heart Rate 2017-01-19 17:23:00 [facility] [place] Systolic (mm Hg) 2017-01-17 02:10:00 [facility] Diastolic (mm Hg) 2017-01-17 02:10:00 [facility] [place] Respitory Rate 2017-01-17 02:10:00 [facility] Systolic (mm Hg) 2017-01-17 01:21:00 [facility] Diastolic (mm Hg) 2017-01-17 01:21:00 [facility] Respitory Rate 2017-01-17 01:21:00 [facility] [place] Temperature Oral (F) 2017-01-17 01:21:00 98.1 F [facility] [place] Systolic (mm Hg) 2017-01-17 00:28:00 [facility] Diastolic (mm Hg) 2017-01-17 00:28:00 [facility] Respitory Rate 2017-01-17 00:28:00 [facility] [place] Heart Rate 2017-01-16 23:24:00 [facility] Temperature Oral (F) 2017-01-16 23:24:00 98 F [facility] Weight 2017-01-16 23:24:00 [facility] Heart Rate 2016-11-29 03:44:00 [facility] Systolic (mm Hg) 2016-11-29 03:44:00 [facility] Diastolic (mm Hg) 2016-11-29 03:44:00 [facility] [place] Respitory Rate 2016-11-29 03:44:00 [facility] Temperature Oral (F) 2016-11-29 03:44:00 98.7 F [facility] [place] Heart Rate 2016-11-29 03:24:00 [facility] [place] Respitory Rate 2016-11-29 03:24:00 [facility] [place] Systolic (mm Hg) 2016-11-29 03:24:00 [facility] [place] Diastolic (mm Hg) 2016-11-29 03:24:00 [facility] Heart Rate 2016-11-29 02:51:00 [facility] [place] Respitory Rate 2016-11-29 02:51:00 [facility] Systolic (mm Hg) 2016-11-29 02:51:00 [facility] Diastolic (mm Hg) 2016-11-29 02:51:00 [facility] [place] Weight 2016-11-29 00:21:00 [facility] BMI Calculated 2016-11-29 00:21:00 [facility] Height 2016-11-29 00:21:00 152.4 cm [facility] Temperature Oral (F) 2016-11-29 00:21:00 98.6 F [facility] [place] Respitory Rate 2016-11-07 02:47:00 [facility] [place] Heart Rate 2016-11-07 02:47:00 [facility] [place] Temperature Oral (F) 2016-11-07 02:47:00 98.2 F [facility] [place] Systolic (mm Hg) 2016-11-07 02:47:00 [facility] Diastolic (mm Hg) 2016-11-07 02:47:00 [facility] [place] Heart Rate 2016-11-07 02:22:00 [facility] [place] Respitory Rate 2016-11-07 02:22:00 [facility] Systolic (mm Hg) 2016-11-07 02:22:00 [facility] [place] Diastolic (mm Hg) 2016-11-07 02:22:00 [facility] Weight 2016-11-06 23:37:00 [facility] [place] Heart Rate 2016-11-06 23:37:00 [facility] [place] Temperature Oral (F) 2016-11-06 23:37:00 98.3 F [facility] [place] Respitory Rate 2016-11-06 23:37:00 [facility] Systolic (mm Hg) 2016-11-06 23:37:00 [facility] Diastolic (mm Hg) 2016-11-06 23:37:00 [facility] [place] Respitory Rate 2016-10-11 18:24:00 [facility] [place] Temperature Oral (F) 2016-10-11 18:24:00 97.9 F [facility] Systolic (mm Hg) 2016-10-11 18:24:00 [facility] Diastolic (mm Hg) 2016-10-11 18:24:00 [facility] Heart Rate 2016-10-11 18:24:00 [facility] [place] Heart Rate 2016-10-11 13:53:00 [facility] Systolic (mm Hg) 2016-10-11 13:53:00 [facility] [place] Diastolic (mm Hg) 2016-10-11 13:53:00 [facility] [place] Temperature Oral (F) 2016-10-11 13:53:00 98.1 F [facility] Temperature Oral (F) 2016-10-11 10:16:00 99.0 F [facility] Respitory Rate 2016-10-11 10:16:00 [facility] Heart Rate 2016-10-11 10:16:00 [facility] [place] Systolic (mm Hg) 2016-10-11 10:16:00 [facility] Diastolic (mm Hg) 2016-10-11 10:16:00 [facility] [place] Weight 2016-10-11 06:46:00 [facility] [place] BMI Calculated 2016-10-11 06:46:00 [facility] Height 2016-10-11 06:46:00 152.4 cm [facility] Respitory Rate 2016-10-11 06:39:00 [facility] Height 2016-10-10 17:48:00 152.4 cm [facility] [place] BMI Calculated 2016-10-10 17:48:00 [facility] [place] Weight 2016-10-10 17:48:00 [facility] BMI Calculated 2016-09-15 04:26:00 [facility] [place] Weight 2016-09-15 04:26:00 [facility] [place] Height 2016-09-15 04:26:00 152.4 cm [facility] Systolic (mm Hg) 2016-09-15 04:26:00 [facility] [place] Diastolic (mm Hg) 2016-09-15 04:26:00 [facility] Respitory Rate 2016-09-15 04:26:00 [facility] [place] Heart Rate 2016-09-15 04:26:00 [facility] [place] Temperature Oral (F) 2016-09-15 04:26:00 98.5 F [facility] [place] Respitory Rate 2016-04-14 06:22:00 [facility] [place] Temperature Oral (F) 2016-04-14 06:22:00 98.7 F [facility] Systolic (mm Hg) 2016-04-14 06:22:00 [facility] Diastolic (mm Hg) 2016-04-14 06:22:00 [facility] [place] Heart Rate 2016-04-14 06:22:00 [facility] [place] BMI Calculated 2016-04-14 02:12:00 [facility] Weight 2016-04-14 02:12:00 [facility] [place] Temperature Oral (F) 2016-04-14 02:12:00 99.2 F [facility] Height 2016-04-14 02:12:00 152.4 cm [facility] Respitory Rate 2016-04-14 02:12:00 [facility] Systolic (mm Hg) 2016-04-14 02:12:00 [facility] [place] Diastolic (mm Hg) 2016-04-14 02:12:00 [facility] [place] Heart Rate 2016-04-14 02:12:00 [facility] Temperature Oral (F) 2016-03-12 17:00:00 97.8 F [facility] [place] Heart Rate 2016-03-12 17:00:00 [facility] [place] Respitory Rate 2016-03-12 17:00:00 [facility] Systolic (mm Hg) 2016-03-12 17:00:00 [facility] Diastolic (mm Hg) 2016-03-12 17:00:00 [facility] [place] Respitory Rate 2016-03-12 12:54:00 [facility] Systolic (mm Hg) 2016-03-12 12:30:00 [facility] [place] Diastolic (mm Hg) 2016-03-12 12:30:00 [facility] [place] Respitory Rate 2016-03-12 12:30:00 [facility] [place] Heart Rate 2016-03-12 12:30:00 [facility] Temperature Oral (F) 2016-03-12 12:30:00 98.2 F [facility] [place] Temperature Oral (F) 2016-03-12 10:26:00 98.0 F [facility] Heart Rate 2016-03-12 10:26:00 [facility] [place] Systolic (mm Hg) 2016-03-12 10:26:00 [facility] Diastolic (mm Hg) 2016-03-12 10:26:00 [facility] [place] Height 2016-03-11 19:45:00 152.4 cm [facility] BMI Calculated 2016-03-11 19:45:00 [facility] [place] Weight 2016-03-11 19:45:00 [facility] [place] Respitory Rate 2016-03-06 01:44:00 [facility] Systolic (mm Hg) 2016-03-06 01:44:00 [facility] [place] Diastolic (mm Hg) 2016-03-06 01:44:00 [facility] Heart Rate 2016-03-06 01:44:00 [facility] [place] Temperature Oral (F) 2016-03-06 01:44:00 98.1 F [facility] BMI Calculated 2016-03-05 21:55:00 [facility] Weight 2016-03-05 21:55:00 [facility] Systolic (mm Hg) 2016-03-05 21:55:00 [facility] [place] Diastolic (mm Hg) 2016-03-05 21:55:00 [facility] Heart Rate 2016-03-05 21:55:00 [facility] Height 2016-03-05 21:55:00 152.4 cm [facility] [place] Temperature Oral (F) 2016-03-05 21:55:00 98.3 F [facility] [place] Respitory Rate 2016-03-05 21:55:00 [facility] Respitory Rate 2016-03-01 01:23:00 [facility] Systolic (mm Hg) 2016-03-01 01:23:00 [facility] Diastolic (mm Hg) 2016-03-01 01:23:00 [facility] [place] Temperature Oral (F) 2016-03-01 01:23:00 98.2 F [facility] Heart Rate 2016-03-01 01:23:00 [facility] [place] Respitory Rate 2016-02-29 23:25:00 [facility] [place] Temperature Oral (F) 2016-02-29 22:27:00 98.3 F [facility] Heart Rate 2016-02-29 22:27:00 [facility] Respitory Rate 2016-02-29 22:27:00 [facility] [place] Systolic (mm Hg) 2016-02-29 22:27:00 [facility] [place] Diastolic (mm Hg) 2016-02-29 22:27:00 [facility] Respitory Rate 2015-09-05 14:47:00 [facility] Systolic (mm Hg) 2015-09-05 14:47:00 [facility] [place] Diastolic (mm Hg) 2015-09-05 14:47:00 [facility] Heart Rate 2015-09-05 14:47:00 [facility] [place] Weight 2015-09-05 11:00:00 [facility] Systolic (mm Hg) 2015-09-05 10:00:00 [facility] [place] Diastolic (mm Hg) 2015-09-05 10:00:00 [facility] [place] Respitory Rate 2015-09-05 10:00:00 [facility] [place] Heart Rate 2015-09-05 10:00:00 [facility] Respitory Rate 2015-09-05 06:00:00 [facility] [place] Systolic (mm Hg) 2015-09-05 06:00:00 [facility] [place] Diastolic (mm Hg) 2015-09-05 06:00:00 [facility] [place] Heart Rate 2015-09-05 06:00:00 [facility] [place] Weight 2015-09-04 11:00:00 [facility] [place] Weight 2015-09-04 09:15:00 [facility] [place] BMI Calculated 2015-09-04 09:15:00 [facility] [place] Height 2015-09-04 09:15:00 160.02 cm [facility] Temperature Oral (F) 2015-09-04 09:06:00 98.3 F [facility] Height 2015-09-04 03:35:00 152.4 cm [facility] [place] BMI Calculated 2015-09-04 03:35:00 [facility] [place] Temperature Oral (F) 2015-09-04 03:35:00 98.7 F [facility] Systolic (mm Hg) 2015-07-16 13:56:00 [facility] [place] Diastolic (mm Hg) 2015-07-16 13:56:00 [facility] [place] Respitory Rate 2015-07-16 13:56:00 [facility] [place] Heart Rate 2015-07-16 13:56:00 [facility] [place] Temperature Oral (F) 2015-07-16 13:56:00 98.0 F [facility] [place] Systolic (mm Hg) 2015-07-16 13:55:00 [facility] Diastolic (mm Hg) 2015-07-16 13:55:00 [facility] Respitory Rate 2015-07-16 13:55:00 [facility] Heart Rate 2015-07-16 13:55:00 [facility] Temperature Oral (F) 2015-07-16 13:55:00 97.4 F [facility] [place] Systolic (mm Hg) 2015-07-16 10:00:00 [facility] Diastolic (mm Hg) 2015-07-16 10:00:00 [facility] [place] Respitory Rate 2015-07-16 10:00:00 [facility] [place] Heart Rate 2015-07-16 10:00:00 [facility] Temperature Oral (F) 2015-07-16 10:00:00 97.9 F [facility] [place] Height 2015-07-16 01:30:00 152.4 cm [facility] [place] Weight 2015-07-16 01:30:00 [facility] [place] BMI Calculated 2015-07-16 01:30:00 [facility] Height 2015-07-15 18:10:00 152.4 cm [facility] [place] BMI Calculated 2015-07-15 18:10:00 [facility] [place] Weight 2015-07-15 18:10:00 [facility] [place] Weight 2015-07-05 04:10:00 [facility] Height 2015-07-05 04:10:00 152.4 cm [facility] [place] BMI Calculated 2015-07-05 04:10:00 [facility] Temperature Oral (F) 2015-07-05 04:10:00 98.3 F [facility] Respitory Rate 2015-07-05 04:10:00 [facility] Heart Rate 2015-07-05 04:10:00 [facility] [place] Systolic (mm Hg) 2015-07-05 04:10:00 [facility] [place] Diastolic (mm Hg) 2015-07-05 04:10:00 [facility] BMI Calculated 2015-07-04 18:05:00 [facility] Weight 2015-07-04 18:05:00 [facility] [place] Height 2015-07-04 18:05:00 152.4 cm [facility] Temperature Oral (F) 2015-07-04 18:05:00 97.9 F [facility] Respitory Rate 2015-07-04 18:05:00 [facility] Heart Rate 2015-07-04 18:05:00 [facility] [place] Systolic (mm Hg) 2015-07-04 18:05:00 [facility] Diastolic (mm Hg) 2015-07-04 18:05:00 [facility] [place] BMI Calculated 2015-06-04 04:13:00 [facility] Weight 2015-06-04 04:13:00 [facility] [place] Height 2015-06-04 04:13:00 152.4 cm [facility] [place] Temperature Oral (F) 2015-06-04 04:13:00 98.8 F [facility] Respitory Rate 2015-06-04 04:13:00 [facility] Heart Rate 2015-06-04 04:13:00 [facility] Systolic (mm Hg) 2015-06-04 04:13:00 [facility] [place] Diastolic (mm Hg) 2015-06-04 04:13:00 [facility] Systolic (mm Hg) 2015-05-18 22:47:00 [facility] [place] Diastolic (mm Hg) 2015-05-18 22:47:00 [facility] [place] Temperature Oral (F) 2015-05-18 22:47:00 96.6 F [facility] Heart Rate 2015-05-18 22:47:00 [facility] [place] Respitory Rate 2015-05-18 22:47:00 [facility] [place] Systolic (mm Hg) 2015-05-18 22:30:00 [facility] Diastolic (mm Hg) 2015-05-18 22:30:00 [facility] Systolic (mm Hg) 2015-05-18 21:00:00 [facility] Diastolic (mm Hg) 2015-05-18 21:00:00 [facility] [place] Temperature Oral (F) 2015-05-18 21:00:00 98.1 F [facility] Respitory Rate 2015-05-18 21:00:00 [facility] [place] Temperature Oral (F) 2015-05-18 19:21:00 98.2 F [facility] Heart Rate 2015-05-18 19:21:00 [facility] [place] Respitory Rate 2015-05-18 19:21:00 [facility] [place] Heart Rate 2015-05-18 17:10:00 [facility] [place] Respitory Rate 2015-05-09 20:00:00 [facility] Systolic (mm Hg) 2015-05-09 20:00:00 [facility] Diastolic (mm Hg) 2015-05-09 20:00:00 [facility] [place] Temperature Oral (F) 2015-05-09 20:00:00 97.5 F [facility] [place] Temperature Oral (F) 2015-05-09 19:10:00 97.5 F [facility] Systolic (mm Hg) 2015-05-09 19:10:00 [facility] [place] Diastolic (mm Hg) 2015-05-09 19:10:00 [facility] [place] Respitory Rate 2015-05-09 19:10:00 [facility] [place] Systolic (mm Hg) 2015-05-09 18:41:00 [facility] [place] Diastolic (mm Hg) 2015-05-09 18:41:00 [facility] [place] Weight 2015-05-09 17:37:00 [facility] BMI Calculated 2015-05-09 17:37:00 [facility] [place] Height 2015-05-09 17:37:00 152.4 cm [facility] Temperature Oral (F) 2015-05-09 17:37:00 98.9 F [facility] Respitory Rate 2015-05-09 17:37:00 [facility] [place] Heart Rate 2015-05-09 17:37:00 [facility] Systolic (mm Hg) 2015-05-03 00:04:00 [facility] [place] Diastolic (mm Hg) 2015-05-03 00:04:00 [facility] Heart Rate 2015-05-03 00:04:00 [facility] [place] Respitory Rate 2015-05-03 00:04:00 [facility] [place] Temperature Oral (F) 2015-05-03 00:04:00 98.5 F [facility] [place] Heart Rate 2015-05-02 21:17:00 [facility] Respitory Rate 2015-05-02 21:17:00 [facility] [place] Systolic (mm Hg) 2015-05-02 21:17:00 [facility] Diastolic (mm Hg) 2015-05-02 21:17:00 [facility] [place] Heart Rate 2015-05-02 20:24:00 [facility] [place] Temperature Oral (F) 2015-05-02 20:24:00 98.1 F [facility] [place] Systolic (mm Hg) 2015-05-02 20:24:00 [facility] Diastolic (mm Hg) 2015-05-02 20:24:00 [facility] Respitory Rate 2015-05-02 20:24:00 [facility] Temperature Oral (F) 2015-05-02 18:35:00 98.9 F [facility] Systolic (mm Hg) 2015-04-11 19:45:00 [facility] [place] Diastolic (mm Hg) 2015-04-11 19:45:00 [facility] Temperature Oral (F) 2015-04-11 19:45:00 98.7 F [facility] Respitory Rate 2015-04-11 19:45:00 [facility] Heart Rate 2015-04-11 19:45:00 [facility] Weight 2015-04-11 16:35:00 [facility] [place] Temperature Oral (F) 2015-04-11 16:35:00 98.4 F [facility] [place] Systolic (mm Hg) 2015-04-11 16:35:00 [facility] Diastolic (mm Hg) 2015-04-11 16:35:00 [facility] [place] Respitory Rate 2015-04-11 16:35:00 [facility] [place] Heart Rate 2015-04-11 16:35:00 [facility] Systolic (mm Hg) 2015-03-30 22:06:00 [facility] Diastolic (mm Hg) 2015-03-30 22:06:00 [facility] [place] Temperature Oral (F) 2015-03-30 22:06:00 97.9 F [facility] Heart Rate 2015-03-30 22:06:00 [facility] [place] Respitory Rate 2015-03-30 22:06:00 [facility] BMI Calculated 2015-03-30 19:44:00 [facility] [place] Height 2015-03-30 19:44:00 152.4 cm [facility] Systolic (mm Hg) 2015-03-30 19:44:00 [facility] Diastolic (mm Hg) 2015-03-30 19:44:00 [facility] Respitory Rate 2015-03-30 19:44:00 [facility] Heart Rate 2015-03-30 19:44:00 [facility] [place] Weight 2015-03-30 19:44:00 [facility] [place] Temperature Oral (F) 2015-03-30 19:44:00 97.9 F [facility] [place] Respitory Rate 2015-03-24 21:57:00 [facility] Temperature Oral (F) 2015-03-24 21:57:00 97.9 F [facility] [place] Heart Rate 2015-03-24 21:57:00 [facility] Systolic (mm Hg) 2015-03-24 21:57:00 [facility] Diastolic (mm Hg) 2015-03-24 21:57:00 [facility] Heart Rate 2015-03-24 17:28:00 [facility] [place] Temperature Oral (F) 2015-03-24 17:28:00 98.8 F [facility] Respitory Rate 2015-03-24 17:28:00 [facility] Systolic (mm Hg) 2015-03-24 17:28:00 [facility] [place] Diastolic (mm Hg) 2015-03-24 17:28:00 [facility] Heart Rate 2015-03-24 13:08:00 [facility] [place] Temperature Oral (F) 2015-03-24 13:08:00 98.4 F [facility] [place] Respitory Rate 2015-03-24 13:08:00 [facility] Systolic (mm Hg) 2015-03-24 13:08:00 [facility] Diastolic (mm Hg) 2015-03-24 13:08:00 [facility] BMI Calculated 2015-03-22 01:41:00 [facility] [place] Weight 2015-03-22 01:41:00 [facility] [place] Height 2015-03-22 01:41:00 152.4 cm [facility] [place] BMI Calculated 2015-03-21 18:42:00 [facility] [place] Weight 2015-03-21 18:42:00 [facility] [place] Height 2015-03-21 18:42:00 152.4 cm [facility] Systolic (mm Hg) 2015-03-11 22:39:00 [facility] Diastolic (mm Hg) 2015-03-11 22:39:00 [facility] Respitory Rate 2015-03-11 22:39:00 [facility] [place] Heart Rate 2015-03-11 22:39:00 [facility] [place] Temperature Oral (F) 2015-03-11 22:39:00 98.1 F [facility] [place] BMI Calculated 2015-03-11 19:44:00 [facility] Weight 2015-03-11 19:44:00 [facility] [place] Systolic (mm Hg) 2015-03-11 19:44:00 [facility] Diastolic (mm Hg) 2015-03-11 19:44:00 [facility] Temperature Oral (F) 2015-03-11 19:44:00 97.9 F [facility] Heart Rate 2015-03-11 19:44:00 [facility] Respitory Rate 2015-03-11 19:44:00 [facility] [place] Height 2015-03-11 19:44:00 152.4 cm [facility] Temperature Oral (F) 2015-03-05 10:15:00 97.9 F [facility] [place] Systolic (mm Hg) 2015-03-05 10:15:00 [facility] [place] Diastolic (mm Hg) 2015-03-05 10:15:00 [facility] Respitory Rate 2015-03-05 10:15:00 [facility] [place] Respitory Rate 2015-03-05 09:53:00 [facility] Temperature Oral (F) 2015-03-05 09:53:00 97.8 F [facility] Systolic (mm Hg) 2015-03-05 09:53:00 [facility] Diastolic (mm Hg) 2015-03-05 09:53:00 [facility] [place] Respitory Rate 2015-03-05 06:30:00 [facility] Systolic (mm Hg) 2015-03-05 06:30:00 [facility] [place] Diastolic (mm Hg) 2015-03-05 06:30:00 [facility] Temperature Oral (F) 2015-03-05 06:20:00 97.7 F [facility] [place] Heart Rate 2015-03-05 06:20:00 [facility] Heart Rate 2015-03-05 05:46:00 [facility] Height 2015-03-05 05:46:00 152.4 cm [facility] [place] BMI Calculated 2015-03-05 05:46:00 [facility] Weight 2015-03-05 05:46:00 [facility] Systolic (mm Hg) 2015-02-25 20:55:00 [facility] Diastolic (mm Hg) 2015-02-25 20:55:00 [facility] [place] Temperature Oral (F) 2015-02-25 20:55:00 97.9 F [facility] [place] Heart Rate 2015-02-25 20:55:00 [facility] Respitory Rate 2015-02-25 20:55:00 [facility] [place] Temperature Oral (F) 2015-02-25 17:18:00 98 F [facility] Heart Rate 2015-02-25 17:18:00 [facility] [place] Respitory Rate 2015-02-25 17:18:00 [facility] Systolic (mm Hg) 2015-02-25 17:18:00 [facility] Diastolic (mm Hg) 2015-02-25 17:18:00 [facility] [place] Systolic (mm Hg) 2015-02-25 12:00:00 [facility] [place] Diastolic (mm Hg) 2015-02-25 12:00:00 [facility] Respitory Rate 2015-02-25 12:00:00 [facility] Heart Rate 2015-02-25 12:00:00 [facility] [place] Temperature Oral (F) 2015-02-25 12:00:00 97.8 F [facility] Height 2015-02-24 16:11:00 152.4 cm [facility] BMI Calculated 2015-02-24 16:11:00 [facility] Weight 2015-02-24 16:11:00 [facility] [place] Heart Rate 2015-02-18 20:17:00 [facility] Temperature Oral (F) 2015-02-18 20:17:00 97.3 F [facility] Systolic (mm Hg) 2015-02-18 20:17:00 [facility] Diastolic (mm Hg) 2015-02-18 20:17:00 [facility] [place] Respitory Rate 2015-02-18 20:17:00 [facility] [place] Heart Rate 2015-02-18 16:13:00 [facility] [place] Respitory Rate 2015-02-18 16:13:00 [facility] Systolic (mm Hg) 2015-02-18 16:13:00 [facility] [place] Diastolic (mm Hg) 2015-02-18 16:13:00 [facility] [place] Temperature Oral (F) 2015-02-18 16:13:00 97.5 F [facility] [place] Temperature Oral (F) 2015-02-18 12:19:00 97.9 F [facility] [place] Systolic (mm Hg) 2015-02-18 12:19:00 [facility] [place] Diastolic (mm Hg) 2015-02-18 12:19:00 [facility] [place] Respitory Rate 2015-02-18 12:19:00 [facility] [place] Heart Rate 2015-02-18 12:19:00 [facility] [place] Weight 2015-02-17 02:30:00 [facility] Height 2015-02-17 02:30:00 152.4 cm [facility] [place] BMI Calculated 2015-02-17 02:30:00 [facility] [place] Weight 2015-02-16 20:42:00 [facility] [place] BMI Calculated 2015-02-16 20:42:00 [facility] [place] Height 2015-02-16 20:42:00 152.4 cm [facility] [place] Respitory Rate 2013-12-25 19:27:00 [facility] Heart Rate 2013-12-25 19:27:00 [facility] Diastolic (mm Hg) 2013-12-25 19:27:00 [facility] [place] Systolic (mm Hg) 2013-12-25 19:27:00 [facility] Temperature Oral (F) 2013-12-25 19:27:00 98.3 F [facility] [place] BMI Calculated 2013-12-25 16:48:00 [facility] [place] Weight 2013-12-25 16:48:00 [facility] [place] Height 2013-12-25 16:48:00 152.4 cm [facility] Respitory Rate 2013-12-25 16:48:00 [facility] [place] Heart Rate 2013-12-25 16:48:00 [facility] Diastolic (mm Hg) 2013-12-25 16:48:00 [facility] [place] Systolic (mm Hg) 2013-12-25 16:48:00 [facility] [place] Temperature Oral (F) 2013-12-25 16:48:00 98.8 F [facility] [place] Heart Rate 2013-12-23 00:27:00 [facility] [place] Systolic (mm Hg) 2013-12-23 00:27:00 [facility] [place] Respitory Rate 2013-12-23 00:27:00 [facility] Temperature Oral (F) 2013-12-23 00:27:00 98.3 F [facility] [place] Diastolic (mm Hg) 2013-12-23 00:27:00 [facility] Diastolic (mm Hg) 2013-12-22 23:06:00 [facility] [place] Temperature Oral (F) 2013-12-22 23:06:00 98.4 F [facility] Systolic (mm Hg) 2013-12-22 23:06:00 [facility] Respitory Rate 2013-12-22 23:06:00 [facility] Heart Rate 2013-12-22 23:06:00 [facility] Weight 2013-12-22 20:46:00 [facility] Temperature Oral (F) 2013-12-22 20:46:00 98.7 F [facility] [place] Systolic (mm Hg) 2013-12-22 20:46:00 [facility] [place] Diastolic (mm Hg) 2013-12-22 20:46:00 [facility] Respitory Rate 2013-12-22 20:46:00 [facility] [place] Heart Rate 2013-12-22 20:46:00 [facility] Diastolic (mm Hg) 2013-12-17 20:30:00 [facility] Respitory Rate 2013-12-17 20:30:00 [facility] [place] Systolic (mm Hg) 2013-12-17 20:30:00 [facility] Systolic (mm Hg) 2013-12-17 19:06:00 [facility] [place] Diastolic (mm Hg) 2013-12-17 19:06:00 [facility] [place] Respitory Rate 2013-12-17 19:06:00 [facility] Systolic (mm Hg) 2013-12-17 18:54:00 [facility] Diastolic (mm Hg) 2013-12-17 18:54:00 [facility] [place] Temperature Oral (F) 2013-12-17 17:09:00 98.1 F [facility] Respitory Rate 2013-12-17 16:50:00 [facility] Temperature Oral (F) 2013-12-17 09:00:00 97.1 F [facility] Height 2013-12-17 02:58:00 152.4 cm [facility] [place] Weight 2013-12-17 02:58:00 [facility] [place] BMI Calculated 2013-12-17 02:58:00 [facility] Temperature Oral (F) 2013-12-17 02:55:00 98.1 F [facility] Height 2013-12-16 17:19:00 152.4 cm [facility] [place] BMI Calculated 2013-12-16 17:19:00 [facility] [place] Weight 2013-12-16 17:19:00 [facility] [place] Heart Rate 2013-12-16 17:19:00 [facility] Temperature Oral (F) 2013-11-08 21:00:00 98 F [facility] Diastolic (mm Hg) 2013-11-08 21:00:00 [facility] Respitory Rate 2013-11-08 21:00:00 [facility] [place] Systolic (mm Hg) 2013-11-08 21:00:00 [facility] [place] Temperature Oral (F) 2013-11-08 19:13:00 97.6 F [facility] Diastolic (mm Hg) 2013-11-08 19:13:00 [facility] Systolic (mm Hg) 2013-11-08 19:13:00 [facility] Respitory Rate 2013-11-08 19:13:00 [facility] [place] Systolic (mm Hg) 2013-11-08 16:18:00 [facility] Respitory Rate 2013-11-08 16:18:00 [facility] Diastolic (mm Hg) 2013-11-08 16:18:00 [facility] Temperature Oral (F) 2013-11-08 11:34:00 99.0 F [facility] Heart Rate 2013-11-08 11:34:00 [facility] [place] Heart Rate 2013-11-08 08:04:00 [facility] [place] BMI Calculated 2013-11-08 04:51:00 [facility] Height 2013-11-08 04:51:00 152.4 cm [facility] [place] Weight 2013-11-08 04:51:00 [facility] [place] Heart Rate 2013-11-08 04:51:00 [facility] Procedures Procedure Date / Time Performing Clinician Source Performed Cardiac catheterization [facility] procedure Stent placement<sup>1</sup> Eleazar rial [place] Plan of Care Planned Activity Planned Date Details Comments Source Future Scheduled Test 2021-05-29 IMM Influenza Seasonal [facility] 00:00:00 May to October (>/= 19 yrs) [code = IMM Influenza Seasonal May to October (>/= 19 yrs)] Future Scheduled Test 2015 IMM Pneumococcal Age 65 [facility] 00:00:00 and Up [code = IMM Pneumococcal Age 65 and Up] Future Scheduled Test 2000 Screening for malignant [facility] 00:00:00 neoplasm of colon (procedure) [code = 046519311] Future Scheduled Test 1990 Breast Cancer Scrn [facility] 00:00:00 (Yearly) [code = Breast Cancer Scrn (Yearly)] Future Scheduled Test 1962 COVID-19 Vaccine (1) [facility] 00:00:00 [code = COVID-19 Vaccine (1)] Encounters Start End Encounter Admission Attending Care Care Encounter Source Date/Time Date/Time Type Type Clinicians Facility Department ID 2020-10-15 2020-10-15 Emergency [facility] [id number] [id number] 02:02:00 04:45:00 Ciaran Freitas [id number] [place] [id number] [place] [id number] 2020-01-21 2020-01-21 Outpatient [id number] 05:31:00 05:31:00 2019-10-15 2019-10-15 Emergency E [facility] [id number] [facility] 13:12:00 13:12:00 2019-05-20 2019-05-20 Emergency [id number] 15:19:00 15:19:00 2019-02-25 2019-02-25 Emergency E [id number] 10:56:00 10:56:00 2018-08-21 2018-08-21 Emergency [facility] [id number] [place] 18:32:58 18:32:58 Health 2018-08-21 2018-08-21 Emergency [facility] [id number] [place] 17:47:59 17:47:59 Health 2018-08-21 2018-08-21 Emergency [facility] [id number] [place] 16:16:06 16:16:06 [facility] 2018-08-16 2018-08-16 Emergency [facility] [id number] [place] 22:04:00 22:04:00 [facility] 2018-08-16 2018-08-16 Emergency [facility] [id number] [place] 21:21:42 21:21:42 [facility] 2018-05-18 2018-05-18 Emergency [facility] [id number] [place] 14:51:52 14:51:52 [facility] 2018-03-08 2018-03-08 Emergency [facility] MED [id number] [place] 15:12:17 15:12:17 [facility] 2018-01-16 2018-01-16 Emergency [facility] MED [id number] [place] 17:53:03 17:53:03 [facility] 2018-01-16 2018-01-16 Emergency [facility] [id number] [place] 00:00:00 00:00:00 [facility] 2018-01-16 2018-01-16 Outpatient [facility] [id number] [place] 00:00:00 00:00:00 [facility] 2017-11-11 2017-11-11 Emergency E [facility] [id number] [facility] 16:37:00 16:37:00 [facility] 2017-01-19 2017-01-19 Outpatient Patel, [facility] MH[facility] [id number] 12:18:00 18:37:00 Mac Bond 2017-01-16 2017-01-16 Outpatient Chayito, [facility] [id number] 18:22:00 21:34:00 Jl 33 Juliánomilew 2016-11-28 2016-11-28 Outpatient Ace, [facility] [id number] 19:17:00 23:13:00 Jason 32 Melody 2016-11-06 2016-11-06 Outpatient Elijah, [facility] [id number] 17:34:00 21:03:00 Zaki 31 [place] 2016-10-10 2016-10-11 Outpatient Cinthya, [facility] [id number] 11:45:00 13:54:00 Jessika Jacek 30 2016-09-14 2016-09-15 Outpatient Emmanuel, [place] [id number] 21:19:00 00:56:00 Nando Lozada 29 2016-04-13 2016-04-14 Outpatient Frandy [facility] [id number] 21:11:00 01:37:00 Jose Tripathi 2016-03-11 2016-03-12 Outpatient Mihai, [facility]PL [id number] 14:41:00 15:25:00 Andrea Marino 2016-03-05 2016-03-05 Outpatient Rina, [facility] [id number] 16:54:00 21:21:00 Rachele 26 [place] 2016-02-29 2016-02-29 Outpatient Bayron, [facility] MHPL [id number] 17:25:00 20:29:00 Good 25 2015-09-03 2015-09-05 Outpatient Mateus Dixon [facility] [id number] 21:30:00 10:26:00 B 24 2015-07-15 2015-07-16 Outpatient Anjel, [facility] [id number] 12:00:00 15:30:00 Janet 23 2015-07-04 2015-07-05 Outpatient Dick, [facility] [id number] 22:07:00 01:09:00 Habacuc 22 Breen 2015-07-04 2015-07-04 Outpatient Recio, [facility] [id number] 11:57:00 14:54:00 Maribel Berkowitz 21 2015-06-03 2015-06-04 Outpatient Ware, [facility] [id number] 23:00:00 02:09:00 Luzmaria Pisano 2015-05-18 2015-05-18 Outpatient Jennifer, [facility] [id number] 11:55:00 18:04:00 Indira S 19 2015-05-09 2015-05-09 Outpatient Jennifer, [facility] [id number] 12:15:00 15:10:00 Indira S 18 2015-05-02 2015-05-02 Outpatient Jennifer, [facility] [id number] 13:18:00 19:05:00 Indira S 17 2015-04-11 2015-04-11 Outpatient Yovani [facility] [id number] 11:25:00 14:47:00 Gilmar Giordano 16 2015-03-30 2015-03-30 Outpatient Charito, [facility] [id number] 14:39:00 17:11:00 Isatu Ayala 2015-03-21 2015-03-24 Outpatient Richmond, [facility] [id number] 13:24:00 17:30:00 Catarino 14 Blaine 2015-03-11 2015-03-11 Outpatient Dick, [facility] [id number] 14:43:00 17:41:00 Habacrekha 13 Breen 2015-03-05 2015-03-05 Outpatient Tata Rushing [facility] [id number] 00:43:00 05:21:00 Martell 12 2015-02-24 2015-02-25 Outpatient Dixon, [facility] [id number] 10:34:00 20:14:00 [place] 11 2015-02-16 2015-02-18 Outpatient Thu, [facility] [id number] 15:36:00 16:00:00 Kalneerua 10 Mary Katedonna 2013-12-25 2013-12-25 Outpatient Dorothea, [facility] [id number] 11:37:00 14:52:00 Rishabh E 09 2013-12-22 2013-12-22 Outpatient Nba, [facility] [id number] 15:43:00 19:29:00 Jann 08 Jl 2013-12-16 2013-12-17 Outpatient Beth, [facility] [id number] 12:18:00 17:45:00 Alvarez 07 2013-11-07 2013-11-08 Outpatient Sacaroja, [facility] [id number] 23:50:00 18:00:00 Dustin Results Test Description [...] Negative (01/19/17 Me morial 19:21:00 2:21 PM) [place] URINE AND STOOL 2017-01-19 Negative (01/19/17 Me morial 19:21:00 2:21 PM) [place] URINE AND STOOL 2017-01-19 Negative (01/19/17 Me morial 19:21:00 2:21 PM) [facility] URINE AND STOOL 2017-01-19 1 [facility] 19:21:00 [place] URINE AND STOOL 2017-01-19 1 [facility] 19:21:00 [facility] URINE AND STOOL 2017-01-19 7.0 Memorial 19:21:00 [place] URINE AND STOOL 2017-01-19 1.008 Memorial 19:21:00 [facility] URINE AND STOOL 2017-01-19 Clear (01/19/17 2:21 Memorial 19:21:00 PM) [place] CARDIAC ENZYMES 2017-01-19 3.0 Memorial 18:07:00 [place] CARDIAC ENZYMES 2017-01-19 <0.02 Memorial 18:07:00 [facility] CHEM PANEL 2017-01-19 231 [facility] 18:07:00 [facility] CHEM PANEL 2017-01-19 9 [facility] 18:07:00 [facility] CHEM PANEL 2017-01-19 8.4 Memorial 18:07:00 [facility] CHEM PANEL 2017-01-19 1.0 Memorial 18:07:00 [place] CHEM PANEL 2017-01-19 3.6 [facility] 18:07:00 [facility] CHEM PANEL 2017-01-19 7 Memorial 18:07:00 [place] CHEM PANEL 2017-01-19 32 Memorial 18:07:00 [place] CHEM PANEL 2017-01-19 104 Memorial 18:07:00 [facility] CHEM PANEL 2017-01-19 3.4 Memorial 18:07:00 [place] CHEM PANEL 2017-01-19 141 Memorial 18:07:00 [place] CHEM PANEL 2017-01-19 0.79 Memorial 18:07:00 [place] CHEM PANEL 2017-01-19 3.6 Memorial 18:07:00 [facility] CHEM PANEL 2017-01-19 9.1 [facility] 18:07:00 [facility] CHEM PANEL 2017-01-19 25 [facility] 18:07:00 [facility] CHEM PANEL 2017-01-19 7.2 Memorial 18:07:00 [place] CHEM PANEL 2017-01-19 1.1 [facility] 18:07:00 [place] CHEM PANEL 2017-01-19 111 [facility] 18:07:00 [facility] CHEM PANEL 2017-01-19 31 [facility] 18:07:00 [place] CHEM PANEL 2017-01-19 90 [facility] 18:07:00 [place] CHEM PANEL 2017-01-19 73 [facility] 18:07:00 [place] CHEM PANEL 2017-01-19 75 [facility] 18:07:00 [place] HEMATOLOGY 2017-01-19 18:07:00 Test Item Value Reference Range Interpretation Comme nts PTT (test code = PTT) 31.3 s 22.9-35.8 [facility] JbgmqmkVMBYCHJQBR1530-05-69 18:07:008.5[facility] 2017-01-19 18:07:0042.0[facility] SpgplrmPNGXODNLGW9780-31-22 18:07:004.92[facility] UhkcuxfRKONOUWSUY7070-16-43 18:07:0014.4[facility] WvnldghSNKUQDQMIZ3946-48-08 18:07:0014.2[facility] MnneugjSFBTIIIBUL8453-82-93 18:07:72724Tcptjbyl [place] FMRRNAZZIQ8939-51-00 18:07:0034.2[facility] FzhalsiCRROSACIBZ1039-16-25 18:07:00 Test Item Value Reference Range Interpretation Comments MCH (test code = MCH) 29.2 pg 27.0-31.0 [facility] UchlvyhKOXSEHWCTX0061-37-49 18:07:0085.5[facility]annHEMATOLOGY 2017-01-19 18:07:007.7[facility] MuluurkVEEKXHHJGL9713-08-14 18:07:00 Test Item Value Reference Range Interpretation Comments PT (test code = PT) 13.7 s 12.0-14.7 Memorial BzkxxvcOHWUQWBPHE9474-07-84 18:07:001.03[facility]annHEMATOLOGY 2017-01-19 18:07:000.3[facility] GkwcudiAFKUYKOBFJ8196-10-33 18:07:0068.3[facility] VhwsbkuHIJDHZJJGL9769-28-68 18:07:000.6[facility] IttimpkSVPOMTSQIK5425-19-10 18:07:005.3[facility] XqvfgpeVVJKIDFGHF0906-48-22 18:07:004.5[facility] [place] IYHUIYQPMH3645-65-97 18:07:000.6[facility] AyrstkmNOMKAZKPLS2587-79-37 18:07:001.4 [facility] HxljhooATRCDTERNV0131-40-75 18:07:007.8[facility]annHEMATOLOGY 2017-01-19 18:07:0018.8[facility]DR[facility] DHSXNO2986-02-94 00:23:00Positive *ABN*(01/16/17 7:23 PM)[facility] YFLWGK6637-23-23 00:23:00Negative *NA*(01/16/17 7:23 PM)[facility] HGBADZ2294-18-15 00:23:00Negative *NA*(01/16/17 7:23 PM)[facility] KFBVSN0352-44-67 00:23:00Negative *NA*(01/16/17 7:23 PM)[facility] YCUZIG1585-14-02 00:23:00See Note (01/16/17 7:23 PM)[facility] NMQJRN2044-24-01 00:23:00Negative *NA*(01/16/17 7:23 PM)[facility] IBPVVD8395-70-87 00:23:00Negative *NA*(01/16/17 7:23 PM)[facility] ZJPWUW2193-69-87 00:23:00Negative *NA*(01/16/17 7:23 PM)[facility] RRPSH6287-48-03 00:23:00Negative *NA*(01/16/17 7:23 PM)[facility] RWAZU2470-98-76 00:23:00Negative *NA*(01/16/17 7:23 PM)[facility] APHZV7493-70-42 00:23:00Negative (01/16/17 7:23 PM)[facility] LHRTC8049-78-59 00:23:00Negative (01/16/17 7:23 PM)[facility] LGSPD3686-12-44 00:23:00Negative (01/16/17 7:23 PM)[facility] PJEST1183-38-00 00:23:001.0[facility] RRJJS8177-76-71 00:23:00Negative (01/16/17 7:23 PM)[facility] TXYAW3457-44-46 00:23:00Slight Cloudy (01/16/17 7:23 PM)[facility] OGEIN5353-57-15 00:23:00 Test Item Value Reference Range Interpretation Comments UA Spec Grav (test code = UA Spec 1.007 1 Grav) [facility] GDGQU2579-92-69 00:23:00 Test Item Value Reference Range Interpretation Comments UA pH (test code = UA pH) 6.0 1 5.0-8.0 [facility] BFUIZ2809-89-61 00:23:00Negative (01/16/17 7:23 PM) [facility] WCTXF7946-38-41 00:23:00Yellow *NA*(01/16/17 7:23 PM) [facility]annCARDIAC LDGTTBX5918-30-74 23:57:00<0.02[facility] CARDIAC GTSMGGI6500-98-96 23:57:002.0[facility]annCARDIAC SPFNVGN1011-05-79 23:57:27793Svrbkxfd HermannCARDIAC OFQFGDL4471-11-83 23:57:001.0[facility] CHEM UHBDG4637-31-10 23:57:0073[facility] HermannCHEM UGIJU2718-68-02 23:57:0029 [facility]annCHEM AULSC9684-17-50 23:57:98188Wctdpdsu HermannCHEM PANEL 2017-01-16 23:57:42107Lxrbdqfh HermannCHEM LQQCT5492-94-63 23:57:0015[facility] HermannCHEM DQHHP0447-29-79 23:57:0011.0[facility] HermannCHEM KTFLJ3517-60-78 23:57:0016[facility]annCHEM THDZH8897-38-36 23:57:009.4[facility] HermannCHEM VQBYC8002-49-86 23:57:000.94[facility]annCHEM CXWFQ0209-71-92 23:57:66505 [facility]annCHEM IDLRH9095-33-74 23:57:004.0[facility] HermannCHEM PANEL 2017-01-16 23:57:003.6[facility] HermannCHEM GDODR6546-39-20 23:57:0024[facility] HermannCHEM AWLXB3638-96-28 23:57:000.6[facility]annCHEM DHJKN4031-56-45 23:57:55321Didirwdn HermannCHEM UEZVT3235-79-42 23:57:0029[facility] HermannCHEM KNHYL4501-29-04 23:57:000.9[facility]annCHEM ATFVB5392-19-20 23:57:003.9 [facility]annCHE[facility] DYMYQ1028-95-47 23:57:007.5[facility]annHEMATOLOGY 2017-01-16 23:57:0014.6[facility] ImdmcjzTMTPFOZGEU3584-04-35 23:57:0042.7[facility] LndvdnqPBCOGGTXVT5435-92-00 23:57:0034.2[facility] AbltzozXOOQVBUPNQ8453-50-14 23:57:0085.3[facility] InnipedWFYJGKNAFP7663-15-69 23:57:00 Test Item Value Reference Range Interpretation Comments MCH (test code = MCH) 29.2 pg 27.0-31.0 [facility] BskrufiBBNYRSMQYS1307-94-76 23:57:0014.3[facility] HermannHEMATOLOGY 2017-01-16 23:57:15300Acxekdnt UttufvdVAOQIHNVTG6639-30-40 23:57:008.0[facility] TvqldmpWLPNEOXMID2953-71-50 23:57:006.6[facility] FmfdwxdIBWRUXWXPS8725-05-32 23:57:005.00[facility] AiyuzixSKVYBRDGNM0163-95-37 23:57:000.8[facility] UECONESUID1403-49-69 23:57:004.0[facility] UpcvtjhNAGCTBJPLG1572-38-73 23:57:000.5 [facility] GeuknjuKRWCFEZGXR8646-03-47 23:57:000.1[facility] HermannHEMATOLOGY 2017-01-16 23:57:001.8[facility] OusweahFQZRVZVGXQ1295-41-22 23:57:000.2[facility] XptzkphHLITTIVHTI1219-35-29 23:57:0060.6[facility]orial QnyzsxfMXUXLTMBIJ2174-25-92 23:57:008.3[facility] RyuqxneWAMBWBDGPF0914-50-78 23:57:003.5[facility] FOJLLNGKUC8832-83-75 23:57:0026.8[facility] AND FFTWP7810-85-23 02:18:00Negative *NA*(11/28/16 9:18 PM)[facility] AYPNM8410-79-72 02:18:00Negative (11/28/16 9:18 PM)[facility] OEYAS3089-21-48 02:18:001.0[facility] WYBZW3919-21-45 02:18:00Negative (11/28/16 9:18 PM)[facility] NQDZK1082-67-40 02:18:00Negative *NA*(11/28/16 9:18 PM)[facility] QKHKP9338-46-31 02:18:00Moderate *ABN*(11/28/16 9:18 PM)[facility] VRHMP9487-04-17 02:18:00Yellow *NA*(11/28/16 9:18 PM)[facility] HQMTZ1727-85-59 02:18:00 Test Item Value Reference Range Interpretation Comments UA pH (test code = UA pH) 6.0 1 5.0-8.0 [facility] WZJOC5729-04-09 02:18:00Negative (11/28/16 9:18 PM) [facility] ATAZT5462-44-19 02:18:00Negative (11/28/16 9:18 PM) [facility] AWVMQ9333-12-66 02:18:00<=1.005 *NA*(11/28/16 9:18 PM)[facility] KBWBT0145-69-94 02:18:00Clear (11/28/16 9:18 PM) [facility]annCARD[facility]AC HATRIXC6801-04-33 01:37:00<0.02[facility] [place] CARDIAC PGFHBFC8830-26-71 01:37:001.3[facility]annCARDIAC CSILPCX8865-46-64 01:37:0089[facility]annC[facility]AC XETVEAB3013-74-84 01:37:001.5[facility] [place] CHEM GTVYD0075-94-18 01:37:003.9[facility] HermannCHEM CCCBR5167-64-28 01:37:0050 [facility]annCHEM TSSVP8011-18-89 01:37:000.9[facility] HermannCHEM PANEL 2016-11-29 01:37:0024[facility] HermannCHEM JLZVY5112-31-07 01:37:003.7[facility] HermannCHEM SHYIS3778-43-26 01:37:0089[facility] HermannCHEM GXGWX1519-50-78 01:37:59016Zlrohrdg HermannCHEM HTBNK0298-63-31 01:37:0010[facility] HermannCHEM DZIVP2297-38-85 01:37:001.28[facility] HermannCHEM KRJJB5191-69-34 01:37:0030 [facility]annCHEM TNALH8367-13-54 01:37:95314Owmdrvuw HermannCHEM PANEL 2016-11-29 01:37:009.5[facility] HermannCHEM UIFNE4878-04-48 01:37:009.5[facility] HermannCHEM CMJIH2650-56-45 01:37:008[facility] HermannCHEM YEYTF2002-19-39 01:37:000.7[facility] HermannCHEM XGYER5213-73-90 01:37:31827Gceibtoa HermannCHEM PNXMB1932-60-79 01:37:003.5[facility] HermannCHEM MDWBW0241-53-91 01:37:007.6 [facility]annCHEM BJCMP5765-00-04 01:37:0014[facility]annHEMATOLOGY 2016-11-29 01:10:0033.4[facility] GsdvnmvJTFRUSZVUY5172-33-68 01:10:37437Piftgdto NwlylckXMXQDRLIBA0554-61-66 01:10:0014.7[facility] HcxfbalACEYLYFDBL2906-54-35 01:10:008.1[facility] XqbkgylEHNCVAMFHC6686-35-79 01:10:005.34[facility] BYWYZPFWHQ7227-98-63 01:10:0015.5[facility] NctoypkSYWVKZFYOU7718-50-26 01:10:00 87.0[facility] EfazwsvZQJPDUTMWY3207-71-53 01:10:0046.4[facility] HermannHEMATOLOGY 2016-11-29 01:10:00 Test Item Value Reference Range Interpretation Comments MCH (test code = MCH) 29.1 pg 27.0-31.0 [facility] JppkncvMQUJGVXYFD3234-77-94 01:10:008.0[facility]annHEMATOLOGY 2016-11-29 01:10:000.1[facility] KujtoqdOKHYKGLAAY9091-84-52 01:10:002.0[facility] MpugsxlSRPWFRKWOT9120-26-95 01:10:005.1[facility] UxyjskaQTNLEQOTGB5571-42-84 01:10:000.2[facility] DmggvooVGCSRPAQKR6202-71-59 01:10:000.8[facility] [place] NHEUTEJINT9518-89-07 01:10:0063.2[facility] QavltakWAIQXAPYRH7749-24-21 01:10:00 24.3[facility] QjjhvhtTLODVARTXW2848-83-75 01:10:002.1[facility]annHEMATOLOGY 2016-11-29 01:10:009.6[facility] CyhtzadLVXFBZLBVV0649-57-91 01:10:000.8[facility] HermannVIRAL - MJDZRNDC4593-87-39 01:10:00Negative (11/28/16 8:10 PM)[facility] HermannVIRAL - JLRIZHVE6691-76-94 01:10:00Negative (11/28/16 8:10 PM)[facility]annCARDIAC WRRQCKZ3019-98-17 01:15:001.3[facility]annCARDIAC ENZYMES 2016-11-07 01:15:00<0.02[facility]annCARDIAC GRZFNYU4253-36-32 01:15:001.9 [facility]annCARDIAC DBAGQVD9477-64-90 01:15:20508Uxxtrjxb HermannCHEM PANEL 2016-11-07 01:15:0077[facility] HermannCHEM NZDVI3606-37-34 01:15:0017[facility] HermannCHEM VUQPM5050-84-04 01:15:006.8[facility] HermannCHEM DPCCG1889-32-25 01:15:008.5[facility]annCHEM YPHPF4118-39-22 01:15:000.8[facility] HermannCHEM KFIPD4013-64-79 01:15:28080Kmoniamz HermannCHEM MUEEM1349-98-24 01:15:0031 [facility]annCHEM BHEKO5761-10-38 01:15:003.1[facility] HermannCHEM PANEL 2016-11-07 01:15:000.90[facility] HermannCHEM RJISY6932-85-48 01:15:28873Glddabks HermannCHEM IMZIB6979-06-77 01:15:0012[facility] HermannCHEM MZHXV2872-27-81 01:15:0096[facility] HermannCHEM BGFVV2091-85-23 01:15:003.3[facility] HermannCHEM ADKYE6557-62-06 01:15:0076[facility] HermannCHEM OZHNN9780-89-01 01:15:0020 [facility]annCHEM GXBUM8070-96-51 01:15:003.5[facility] HermannCHEM PANEL 2016-11-07 01:15:000.9[facility] HermannCHEM YEBTB5139-91-35 01:15:0010.1[facility] HermannCHEM NRDXD8973-52-64 01:15:0013[facility] EtgzniuNAABORICLV2861-33-30 01:15:002.8[facility] CbshwbjCBFSTDFEOP4835-09-42 01:15:000.2[facility] [place] DLVLPQVTTE3161-98-25 01:15:000.1[facility] ScxehpmCSJSNYFDQE0572-98-22 01:15:000.7 [facility] YizcaxyTRHIXZLZGY5400-07-93 01:15:000.8[facility] HermannHEMATOLOGY 2016-11-07 01:15:004.5[facility] GluafktRWILNGJHFZ8344-61-48 01:15:002.2[facility] VbglvgsTQZMOKRDAJ4016-06-96 01:15:0058.5[facility] McsfvnxQVZAGNWJQR8375-94-24 01:15:0028.8[facility] XdvunneNRRQJDUVTX0098-76-70 01:15:009.1[facility] [place] ZIHVQWLSOA8117-77-03 01:15:51220Jaqndiwz XmytqknBPRVOSPIGJ4655-35-99 01:15:00 14.3[facility] VghnrioZHGPQAJZKW8032-33-82 01:15:008.1[facility] HermannHEMATOLOGY 2016-11-07 01:15:007.7[facility] LboyehcFFPKPRLSXN6177-83-41 01:15:0013.1[facility] LusinvzTJLNNJUWUN0221-57-68 01:15:004.48[facility] HjcrwsyLDSUOJYADD8065-05-98 01:15:00 Test Item Value Reference Range Interpretation Comments MCH (test code = MCH) 29.3 pg 27.0-31.0 [facility] GzjyihyMKHZXNIKFQ4136-29-87 01:15:0039.1[facility] HermannHEMATOLOGY 2016-11-07 01:15:0087.3[facility] OulobxzBODFENUKVH6327-54-46 01:15:0033.6[facility]annDR[facility] EGSTVO6435-36-02 11:24:00Negative *NA*(2/13/17 5:24 AM)[facility] YMBRBS3976-55-78 11:24:00Negative *NA*(10/11/16 5:24 AM)[facility] CEEBBG6233-43-60 11:24:00Negative *NA*(10/11/16 5:24 AM)[facility] FOMTJX3627-63-56 11:24:00Negative *NA*(10/11/16 5:24 AM)[facility] IHXTYR2086-84-73 11:24:00Positive *ABN*(10/11/16 5:24 AM)[facility] AXBYCI3983-66-88 11:24:00See Note (10/11/16 5:24 AM)[facility] NMPFZV5358-38-13 11:24:00Negative *NA*(10/11/16 5:24 AM)[facility] UPEEVX1118-42-51 11:24:00Negative *NA*(10/11/16 5:24 AM)[facility]annCARDIAC FZGPOUU5186-54-35 09:58:00<0.02[facility] YthszrqJJGLOVVOAA0497-39-15 09:58:00 0.4[facility] VinjsbaXZQEZDZSWS5291-15-87 09:58:000.1[facility]annHEMATOLOGY 2016-10-11 09:58:006.3[facility] YydijzoGDKRLUIRBD3943-37-04 09:58:001.0[facility] SgkkvcaHUYMAAXCOP1646-02-46 09:58:002.7[facility] JlljrglGOOFYIKVDU1612-41-76 09:58:002.1[facility] BaoyofgPYALGXQINM4439-36-43 09:58:000.6[facility] ZFMISFZSWZ9751-92-46 09:58:0036.3[facility] KvaotlyQDQGPFNSOP7331-42-81 09:58:00 46.0[facility] OrtwlutKQCPTUVUAT0100-24-89 09:58:0010.4[facility]annHEMATOLOGY 2016-10-11 09:58:008.7[facility] NeygnjdQWZZJNWFSY8270-00-14 09:58:59280Otujxbkt NuzhmkbTOTDQGMQHC0703-13-73 09:58:00 Test Item Value Reference Range Interpretation Comments MCH (test code = MCH) 29.3 pg 27.0-31.0 [facility] FbthganBDWGYILBHU9482-36-31 09:58:0087.2[facility]annHEMATOLOGY 2016-10-11 09:58:0014.4[facility] NlpammuLDQMAXVZVJ7802-29-07 09:58:0033.6[facility] AryaderTBEFXIPPJM2987-79-36 09:58:0013.1[facility] LqhsddiUTLYOEZLCT6254-22-10 09:58:004.45[facility] YtcbvkdJYZYRDPBFM9209-74-33 09:58:0038.8[facility] FWPVHJMRLB4355-22-64 09:58:005.8[facility] WfjvckzDGPTNI4492-02-87 09:58:002.84 [facility] VmabvuvYYFOON5142-75-60 09:58:0014[facility] LknygvrNNZZDL9266-55-68 09:58:0087[facility] UzuljrwDRIAKE1968-35-51 09:58:0071[facility] HermannLIPIDS 2016-10-11 09:58:52615Hfdcwxqh QizuuisOZYQCP3591-45-80 09:58:0055[facility]annCARDIAC YRCIZGE4877-48-15 00:00:00<0.02[facility]annCARDIAC ENZYMES 2016-10-10 19:10:33<0.02[facility]annCHEM LPRDG2293-23-93 19:10:3392 [facility]annCHEM MLPKH8489-16-40 19:10:338[facility]annCHEM PANEL 2016-10-10 19:10:330.78[facility]annCHEM LYQGP4264-37-36 19:10:75219Qxvnwhfo HermannCHEM TVVAP0754-84-56 19:10:333.2[facility] HermannCHEM GELRM8354-63-85 19:10:339.3[facility]annCHEM JGWNL8543-88-53 19:10:3331[facility]annCHEM BPQCI8413-24-71 19:10:25843Ttqyvvsv HermannCHEM NAUDW8245-76-71 19:10:81808 [facility]annCHEM MLQGV2171-22-93 19:10:337.2[facility]annHEMATOLOGY 2016-10-10 19:10:3333.8[facility] TmvdsxqOUIGMPVEST6204-94-06 19:10:3314.2[facility] GahoabnZHYHINXSKE3660-34-16 19:10:33 Test Item Value Reference Range Interpretation Comments MCH (test code = MCH) 29.4 pg 27.0-31.0 [facility] SnrshzfVXHCDYZPPX9446-43-07 19:10:3387.0[facility]annHEMATOLOGY 2016-10-10 19:10:3313.5[facility] VobmbmdZPAEPCVTUQ1877-39-61 19:10:3339.8[facility] MtbdwpjXSJLBGWFMI7164-06-20 19:10:11590Mgcrvygm XiybzbePBSFHCWMNE1736-00-19 19:10:338.7[facility] HxweyjtCKJVHAKDLU6723-98-46 19:10:336.6[facility] EHRWHGHBJU7915-12-44 19:10:334.58[facility] KvibowlGHQCZDRZJR7559-18-22 19:10:33 1.8[facility] KgqrwkdLRDXEBKBMQ3205-59-30 19:10:330.6[facility]annHEMATOLOGY 2016-10-10 19:10:330.3[facility] MhdqqtuBGIFLKWACL7649-99-01 19:10:330.6[facility] DrbhzqdSQXYALYSWF9284-98-03 19:10:333.9[facility] MpmjcnxFDQKNWAVJU3155-68-41 19:10:339.0[facility] GpmrgdsPKDCIXDOWW7086-61-79 19:10:334.1[facility] GMYVGJWFNM3363-93-45 19:10:3359.5[facility] NdunwdxYQHYJEYDHP6878-64-63 19:10:33 26.8[facility] HermannCARDIAC UXJPAVQ6364-33-54 04:07:00<0.02[facility] RKCGTYHCYRWT2835-33-15 04:07:0013.5[facility] KvcancfPWWASWYCOTQV3069-16-64 04:07:0079[facility] WxpebqyYWORFGLBEUTM6743-19-84 04:07:000.89[facility] WBXBTHCXQJBP9347-29-26 04:07:009[facility] IclfufeOSEKNZFVGWQM5703-50-14 04:07:00 72[facility] KiuesukCOVVXFVQNGHR6279-41-90 04:07:11867Fvhdfgzw HermannELECTROLYTES 2016-04-14 04:07:0025[facility] RdujnxxWMOLAVVRLKSU6831-97-25 04:07:008.9[facility] YzoiuhjELQKPRFBBXUG9152-95-82 04:07:53273Zrclrtgz VmhwtxrXYJPEUTUFAKM2779-41-82 04:07:003.5[facility] JhhuouzOJDLTCIJFF9079-85-34 04:07:72351Ktqsgxmu [place] MXRXJNEDSL6040-00-47 04:07:008.5[facility] FpptnleMAUVJVORVV8689-63-78 04:07:00 33.5[facility] QbozwvwZIGHZVLGHZ6860-50-34 04:07:00 Test Item Value Reference Range Interpretation Comments MCH (test code = MCH) 28.7 pg 27.0-31.0 [facility] PipaozrAKDIZCYHIF0134-04-58 04:07:0015.0[facility]annHEMATOLOGY 2016-[facility]-14 04:07:0038.3[facility] LgmxzxrCRPDMCGAJU6567-97-80 04:07:0085.6[facility] LrhakovXONHNILMGZ0276-44-87 04:07:0012.9[facility] RjdpolhIDJOHTUQKA3771-81-64 04:07:004.48[facility] ScqioskIROGPQFBIK6600-16-45 04:07:005.6[facility] CWHPHNIFEC5899-97-89 04:07:000.1[facility] WsftwqtQDJLIRJGJN1858-43-56 04:07:002.2 [facility] CcmvrmqHNQHSNOZJQ9860-54-80 04:07:000.3[facility]annHEMATOLOGY 2016-04-14 04:07:000.5[facility] OlqaghjZGNNESTSUX0808-66-23 04:07:006.1[facility] IclchelHWGGXRWNLE0042-06-91 04:07:001.1[facility] BwaydqoIYTKAMZTLR7459-37-65 04:07:002.5[facility] OaceaskYARDGOOPPB6327-50-89 04:07:0038.8[facility] SBVHIRUSDY5422-60-61 04:07:009.2[facility] ZlygqkvSZQTRTJDIA3175-27-74 04:07:00 44.8[facility] VnlrabqXZQJCXGHNL3882-72-18 04:07:008[facility]annTOXICOLOGY 2016-04-14 04:07:000.008[facility]annCARDIAC IDYXGBB3898-15-14 11:47:00 <0.02[facility] YtqfnrnWVKQQP4246-56-03 11:47:003.39[facility] HermannLIPIDS 2016-03-12 11:47:0018[facility] FnvanvgJCRUYW2551-21-55 11:47:0073[facility] QEZOVT0691-80-85 11:47:0090[facility] QblmizfZHSTUQ3834-72-82 11:47:08410Snccuxjh QokeaavFXERCC6210-14-94 11:47:0038[facility]annSPECIAL QQTJGQGRJ1121-32-40 11:47:005.9[facility]annCARDIAC ICYFDOO9593-50-15 02:33:0081[facility] CARDIAC QWBPKXT4421-41-55 02:33:000.02[facility]annCARDIAC ZXJAIMI4503-19-38 02:33:001.6[facility]annCARD[facility]AC ABCPVRN0978-46-01 02:33:001.3[facility] ELVCLGSDEQ0381-23-71 21:03:00 Test Item Value Reference Range Interpretation Comments PROTIME (test code = PROTIME) 14.0 s 12.0-14.7 [facility] ZtxhhxyZRXUUSVKED6876-71-90 21:03:001.05[facility]annHEMATOLOGY 2016-03-11 21:03:00 Test Item Value Reference Range Interpretation Comments aPTT (test code = aPTT) 38.7 s 22.9-35.8 [facility] FmmajkuVNVQFPWQGS4363-62-02 21:03:000.49[facility]annCARDIAC ENZYMES 2016-03-11 20:14:001.6[facility] SFRDGCN8735-52-70 20:14:001.3 [facility]annC[facility] MGPRGOW8518-04-91 20:14:00<0.02[facility] CARDIAC WYWCTDY9591-91-56 20:14:0083[facility]annCARD[facility]AC SESBULI1429-64-28 20:14:0050[facility]annCHEM NSAPQ4145-53-13 20:14:49990Rsgpljkh HermannCHEM IXWNY1603-88-92 20:14:30156Xlyerccu HermannCHEM HWGKS0763-43-87 20:14:002.8 [facility]annCHEM ONFZA8556-75-79 20:14:001.2[facility]annCHEM PANEL 2016-03-11 20:14:0015[facility]annCHEM OIGZX0676-80-94 20:14:0010.4[facility]annCHEM JFJSR8119-21-72 20:14:0014[facility]annCHEM KMGOX7126-23-25 20:14:006.1[facility]annCHEM YSWXM1041-98-88 20:14:000.5[facility]annCHEM FUHDT6702-26-60 20:14:007.7[facility]annCHEM EYGUV4626-51-01 20:14:0026 [facility]annCHE[facility] YJFMM9218-77-80 20:14:83338Obhfmawu HermannCHEM PANEL 2016-03-11 20:14:003.4[facility]annCHEM KBWYE9375-88-11 20:14:36522Lwuinczh HermannCHEM XGPBO3166-51-81 20:14:000.61[facility]annCHEM CARBB3257-97-91 20:14:009[facility]annCHEM MBNFP2637-77-68 20:14:0076[facility]annCHEM MSWHN3115-22-36 20:14:0088[facility]annCHEM RJRVE7989-51-29 20:14:003.3 [facility]annCHEM VMJBB5912-01-79 20:14:0015[facility]annHEMATOLOGY 2016-03-11 20:14:001.8[facility] UyyytuaEPKEGLOQZM0990-38-13 20:14:000.5[facility] QjhiifiDGTYTBDDMC9834-95-78 20:14:001.0[facility] OssfiecHGYIVWQSAE9116-70-13 20:14:004.1[facility] NjofkrnOQTYAKYBOR0576-61-31 20:14:000.2[facility] SASSMKHAWD2776-56-12 20:14:000.1[facility] FsjoupfNTPSNBFBGD5373-04-96 20:14:00 61.4[facility] OobqxxdSEEPFATCVA8072-66-60 20:14:003.5[facility]annHEMATOLOGY 2016-03-11 20:14:0026.6[facility] RbnprlxCYEAFBPCGY7585-39-85 20:14:007.5[facility] KkfuhgbTEQVUMWIXD3233-38-40 20:14:006.7[facility] ElhumvlRBHKYIYDRC4628-12-18 20:14:0012.2[facility] NnhrfhgZYRWHGRUYZ2232-96-32 20:14:004.26[facility] XWVSSEMIHF6311-60-71 20:14:00 Test Item Value Reference Range Interpretation Comments MCH (test code = MCH) 28.7 pg 27.0-31.0 [facility] RlfoszaMORSWTGZGF7781-39-76 20:14:0086.0[facility]annHEMATOLOGY 2016-03-11 20:14:0014.9[facility] FxbvownNAFXKGHJFP3900-30-86 20:14:0033.3[facility] BbngqgdNXPWTLLFOR4779-69-47 20:14:0036.6[facility] DiznhocCZDSQURHGF4488-93-30 20:14:008.7[facility] IsljfzwEQABQAXOWK6824-17-96 20:14:53754Vpjvpbhk HermannURINE AND SVVZS5283-90-37 20:14:00Negative (03/11/16 3:14 PM)[facility] LBWHF6728-89-25 20:14:00Negative (03/11/16 3:14 PM)[facility] NUOOB9457-95-09 20:14:00Negative (03/11/16 3:14 PM)[facility] HIMGS2532-67-42 20:14:000.2[facility]UR[facility] AND OXIGO5300-64-27 20:14:00 Clear (03/11/16 3:14 PM)[facility] RKEVH4274-28-53 20:14:00 Negative (03/11/16 3:14 PM)[facility] SNXYB6509-83-16 20:14:00 <=1.005 *NA*(03/11/16 3:14 PM)[facility] QGALC7713-99-07 20:14:00 Test Item Value Reference Range Interpretation Comments UA pH (test code = UA pH) 6.5 1 5.0-8.0 [facility] TNWJC7399-03-74 20:14:00Negative *NA*(03/11/16 3:14 PM) [facility] DHFQA3695-17-33 20:14:00Negative *NA*(03/11/16 3:14 PM) [facility] LOASC3227-33-09 20:14:00Negative (03/11/16 3:14 PM) [facility] TGMLW6920-61-85 20:14:00Yellow *NA*(03/11/16 3:14 PM) [facility] YPERV6388-15-08 00:22:00Yellow *NA*(02/29/16 7:22 PM) [facility] SPBSR9026-84-41 00:22:00 Test Item Value Reference Range Interpretation Comments UA pH (test code = UA pH) 6.0 1 5.0-8.0 [facility] HRVZM2320-87-70 00:22:00Clear (02/29/16 7:22 PM)[facility] NMXFL6809-68-63 00:22:00 Test Item Value Reference Range Interpretation Comments UA Spec Grav (test code = UA Spec 1.015 1 Grav) [facility] CKTQL6283-65-34 00:22:00Trace *ABN*(02/29/16 7:22 PM) [facility] LHEJS3987-96-68 00:22:00None Seen (02/29/16 7:22 PM) [facility] CIEVB7037-80-38 00:22:00Negative (02/29/16 7:22 PM) [facility] YUXTC9565-42-44 00:22:001.0[facility] IEMLK1474-49-16 00:22:00Negative (02/29/16 7:22 PM)[facility] STOOL 2016-03-01 00:22:00Negative (02/29/16 7:22 PM)[facility] STOOL 2016-03-01 00:22:00Negative *NA*(02/29/16 7:22 PM)[facility] STOOL 2016-03-01 00:22:00Negative *NA*(02/29/16 7:22 PM)[facility] STOOL 2016-03-01 00:22:00Negative (02/29/16 7:22 PM)[facility]annCARDIAC ENZYMES 2016-02-29 23:14:00<0.02[facility]annCARDIAC KXNBIIJ6767-88-28 23:14:001.1 [facility]annCARDIAC HHGYMXF7009-01-96 23:14:05463Fyarodhj HermannCARDIAC SXSPYBM0969-98-99 23:14:007[facility]annCARDIAC AGYTWUT8939-90-55 23:14:000.8 [facility]annCHEM GSYFV6292-90-25 23:14:0080[facility]annCHEM PANEL 2016-02-29 23:14:0013[facility]annCHEM CLTDV5924-66-93 23:14:001.0[facility]annCHEM MCIES6970-52-67 23:14:003.6[facility]annCHEM NBAUI0668-99-95 23:14:009[facility]annCHEM JHTKP8350-32-93 23:14:007.1[facility]annCHEM FRTDH2840-20-53 23:14:0010.0[facility]annCHEM PJSRN4649-25-16 23:14:68961 [facility]annCHEM PRVMH1195-51-21 23:14:003.0[facility]annCHEM PANEL 2016-02-29 23:14:000.88[facility] HermannCHEM MDWUN6799-59-42 23:14:0030[facility]annCHEM XEZVN8791-51-71 23:14:000.6[facility]annCHEM NZQDW8163-64-17 23:14:008.7[facility]annCHEM ZRHMT3042-45-78 23:14:18357Yhnvbpqr HermannCHEM GYAUX6281-34-62 23:14:0015[facility]annCHEM MWTJI8022-16-45 23:14:0088 [facility]annCHEM LMWMA5854-06-72 23:14:003.5[facility]annCHEM PANEL 2016-02-29 23:14:008[facility]annCHEM JPCDF0522-36-52 23:14:0089[facility] UptwjjbYIDEOKJHKW0779-37-76 23:14:00 Test Item Value Reference Range Interpretation Comments PROTIME (test code = PROTIME) 13.2 s 12.0-14.7 [facility] YzvvhtnIUIHWWVNWZ0341-28-63 23:14:000.97[facility]annHEMATOLOGY 2016-02-29 23:14:0015.3[facility] ObaypowUVRTOBHAAN3581-31-27 23:14:0032.9[facility] IlxnuovZTPLFVHHID9731-54-45 23:14:0043.8[facility] CfquticSGWBIPKMWZ2512-16-34 23:14:00 Test Item Value Reference Range Interpretation Comments MCH (test code = MCH) 28.1 pg 27.0-31.0 [facility] HoyyeboOIXDPCCRRG1669-37-09 23:14:0085.5[facility]annHEMATOLOGY 2016-02-29 23:14:005.3[facility] CnqurpjVXOTVTDELS5079-23-93 23:14:0014.4[facility] VogompyZWXXKFPJCC4034-32-74 23:14:005.12[facility] OdpbfivRSDQEJMDZC5131-50-54 23:14:56472Jwhunnri LxzzejgHNJAPSXYYE2512-60-11 23:14:008.1[facility] AKHKUCVWWO1603-05-03 23:14:0057.2[facility] KxqceoyJQCAVSBMZB8626-19-27 23:14:00 11.7[facility] WbfxgffEFMZJJLZFV6362-64-30 23:14:0024.1[facility]annHEMATOLOGY 2016-02-29 23:14:000.1[facility] FfqzhlsLBNWXXESII2991-78-39 23:14:000.6[facility] QdosjfeMAMSQMJJDD3506-23-71 23:14:001.3[facility] PeodydoVNTTGZFVAU8628-95-49 23:14:000.3[facility] NsfqrqsUTMZVHAOYL1649-95-23 23:14:003.0[facility] GWQRVLSJRI3422-03-88 23:14:005.9[facility] SsmuywbRPGTSDBMDJ0687-78-94 23:14:001.1 [facility]annCARDIAC FFGSAUH6898-71-53 17:04:000.7[facility]annCARDIAC XBOPUZS6684-39-89 17:04:000.7[facility]annCARDIAC ZGQPPBX1461-01-81 17:04:00 <0.02[facility]annCARDIAC LTJKKPH0021-31-85 17:04:0097[facility] PIXGWUCQALEQ5749-48-60 17:04:0018.3[facility] MosduddGUNZBUCHOBNA8019-74-40 17:04:0078[facility] QgsrmmyGKXFPMSHWQPT4010-33-50 17:04:65003Xzvddxjh [place] HGBJRTRCQTZU9198-99-91 17:04:0010[facility] EdrcujiJPJZXONIJSZR0350-87-31 17:04:00 0.90[facility] UypqqfmMQROOKHXAZOK3067-10-48 17:04:0020[facility] HLJLSEZCUSBJ0540-97-69 17:04:009.4[facility] IvquwswWWBAKDUIMVXI4341-51-67 17:04:004.3[facility] WgxxppoIIBUQQHBNJVN6252-24-64 17:04:73033Jdccdbfa [facility] SHCFTRGLQMAE1664-46-94 17:04:62912Taxhxgct BleokncVKSJPSHYTF1670-34-40 17:04:00 9.6[facility] EjppaobGIKUUBWGSD6653-03-46 17:04:0041.4[facility]annHEMATOLOGY 2015-09-04 17:04:0013.1[facility] CjryalgRQJJLDGRDP2611-55-05 17:04:004.74[facility] XiwbbkfJHAWHPUSUW6173-71-68 17:04:0087.3[facility] DwnuuotVWWFJGMQDU3209-99-68 17:04:0031.5[facility] TcpxltcVEZFKTSZYB5073-89-68 17:04:00 Test Item Value Reference Range Interpretation Comments MCH (test code = MCH) 27.5 pg 27.0-31.0 [facility] NsoqpmoKMMAGJEUES0012-61-19 17:04:008.7[facility]annHEMATOLOGY 2015-09-04 17:04:43408Tsbshogi FsjwspmJYERVOYIDQ2496-89-48 17:04:0014.4[facility] RlatogjKGYACERZHY8490-20-95 17:04:000.1[facility] QxhcwmqKSQJMILOYJ8051-06-35 17:04:000.5[facility] GzkwbwiYTZUJDISSW0723-04-39 17:04:00Normal (09/04/15 11:04 AM) [facility] EbumczfNHZZTTOWSU1029-88-80 17:04:00Normal (09/04/15 11:04 AM)[facility] TjmqyraCNBXUESSCD0324-78-16 17:04:0093.3[facility] YjvggyaWNJKFJLIZP1055-56-55 17:04:000.2[facility] KpjpoduNBTXDLCNLP6729-11-37 17:04:005.4[facility] XIGHNTTZRO5625-75-69 17:04:001.1[facility] OrgttwlBXNYZKISSC2495-57-68 17:04:009.0 [facility] FyuaidxOJMTMD1245-75-29 17:04:0014[facility] HtwpilgGCLVKU5658-73-15 17:04:30781Kkfkmief SqoptwiSPQZSB5777-38-44 17:04:0054[facility] HermannLIPIDS 2015-09-04 17:04:0071[facility] MhiwewxQRVPTO9527-87-29 17:04:93935Vqewozqk ZxhsdacVIXYHF3404-83-25 17:04:003.67[facility]annCARDIAC CXGRLQK1176-65-33 10:50:000.6[facility]annCARDIAC SGVDERK0189-85-62 10:50:000.6[facility] CARDIAC MBSTQQJ1107-89-45 10:50:00<0.02[facility]annCARDIAC ENZYMES 2015-09-04 10:50:35140Tjgrheuz HermannCARDIAC SIJXYST4636-49-45 04:33:79974 [facility]CARD[facility]AC JLQGFOI0149-05-35 04:33:00<0.02[facility] CARDIAC PINHFNI4139-95-45 04:33:000.8[facility]annCARDIAC NXBZCOW3818-03-68 04:33:000.7[facility] HermannCHEM OPZQN0854-19-05 04:33:0087[facility]annCHEM JUGLO7264-45-40 04:33:008[facility]annCHEM BQJEP1163-17-06 04:33:000.82 [facility]annCHEM YBAPU4691-42-53 04:33:38468Geizlabk HermannCHEM PANEL 2015-09-04 04:33:31365Xtbxmpkx HermannCHEM OLZAD7163-65-65 04:33:003.9[facility]annCHEM PXMDC8814-38-64 04:33:46460Yynslavk HermannCHEM KGFPK9856-45-64 04:33:0013.9[facility]annCHEM OUHCQ0358-51-66 04:33:009.2[facility]annCHEM VMDUI7579-44-68 04:33:0025[facility] RvbrqnoCHRHNUXVYM8283-01-35 04:33:007.4 [facility] WjnkchpNSTQGVXHHQ5004-61-62 04:33:0012.4[facility]annHEMATOLOGY 2015-09-04 04:33:004.57[facility] XlfcgsnLEBYJTNDEY8270-73-15 04:33:0039.4[facility] VzesvrkFZRTFZRMUV6714-45-35 04:33:0086.1[facility] ZfjlplmEUGTMYRYAJ7197-81-10 04:33:0014.7[facility] SasbvgcRARDMJMJFB8664-81-44 04:33:0031.6[facility] XKIBNRTHYF4790-82-34 04:33:00 Test Item Value Reference Range Interpretation Comments MCH (test code = MCH) 27.2 pg 27.0-31.0 [facility] QkmgoavZANBUDXKKD7604-87-00 04:33:008.3[facility]annHEMATOLOGY 2015-09-04 04:33:96532Nmomqlnh WifnyppAHTVIQZITK3624-16-12 04:33:005.5[facility] FszqvksLFXVZNHVTR5242-63-78 04:33:006.5[facility] JmcpgupTZKNPOOHFG4439-72-00 04:33:0031.7[facility] VwcznydDATDGSMWSG1241-26-55 04:33:0055.0[facility] HMFAULIVXP3975-46-77 04:33:000.5[facility] ChhwesgDKTELPAAFW2243-54-47 04:33:002.3 [facility] UrexhwpTBVXPZOVSA2597-36-66 04:33:004.0[facility]annHEMATOLOGY 2015-09-04 04:33:001.3[facility] DzmafjmRILEUFDYIC7706-33-38 04:33:000.1[facility] CvqmfqeVJSMJZZCNO1794-53-68 04:33:000.4[facility]annCARDIAC AXZUJKY0148-80-95 10:25:00<0.02[facility]annCARDIAC KUUZOVL9664-94-71 10:25:0075[facility]annCARDIAC XJDNILJ9768-24-82 10:25:000.9[facility]annCARDIAC ENZYMES 2015-07-16 10:25:001.2[facility] HermannCHEM JYOKB8556-70-50 10:25:05440Ppmddhsh HermannCHEM ALWLH9878-91-68 10:25:000.6[facility]annCHEM WPJPC4991-74-54 10:25:003.1[facility]annCHEM FTIWU4920-59-46 10:25:009.0[facility]annCHEM WYFYS2296-99-57 10:25:006.3[facility] HermannCHEM ICSLQ1362-95-37 10:25:0014 [facility]annCHEM WETAL5268-05-28 10:25:0089[facility]annCHEM PANEL 2015-07-16 10:25:0019[facility] HermannCHEM NOLEC4863-25-07 10:25:0025[facility]annCHEM VHXSU3540-20-73 10:25:004.2[facility] HermannCHEM QBZNY5164-08-47 10:25:87446Hsknstok HermannCHEM PEZXL5891-62-55 10:25:0014[facility]annCHEM HEOXR7676-38-88 10:25:000.70[facility]annCHEM OXTWJ4939-31-35 10:25:00094 [facility]annCHEM RDXSO5933-99-69 10:25:0078[facility]annCHEM PANEL 2015-07-16 10:25:0020[facility]annCHEM CEOFU6943-18-25 10:25:0010.2[facility] HermannCHEM YYOVX7740-36-01 10:25:001.0[facility]annCHEM CBQZN7806-49-51 10:25:003.2[facility] BcnlvbrOLIGDQSXLQ1558-29-97 10:25:008.6[facility] HIIKHUVDZA2117-88-34 10:25:73089Wyaemqhd VrorauzHMKRFYEWAD5471-44-75 10:25:00 14.3[facility] PzazqcmIESZVVKFRY7844-46-43 10:25:004.53[facility]annHEMATOLOGY 2015-07-16 10:25:005.5[facility] NooxrgxUJGQBEAYCT0107-95-21 10:25:00 Test Item Value Reference Range Interpretation Comments MCH (test code = MCH) 27.9 pg 27.0-31.0 [facility] IgwfurdOWESCDOODK8412-22-14 10:25:0031.5[facility]annHEMATOLOGY 2015-07-16 10:25:0088.6[facility] MiwsdahVHLPAVMOGE1884-79-05 10:25:0040.2[facility] XwnxrrgIAFPFCGCYI1806-33-79 10:25:0012.6[facility] UkfuuieTORQNIDXFI2510-26-77 10:25:000.2[facility] PnuaiadOGFYVYIIFY9127-43-62 10:25:002.0[facility] WLSJAEBCOD2502-92-41 10:25:000.9[facility] MyswozaZAFIHZRDHM5069-25-67 10:25:000.6 [facility] RzvtkoeWNCBZPBGUP0168-60-80 10:25:002.6[facility]annHEMATOLOGY 2015-07-16 10:25:0011.0[facility] UdfuzkhZDAWASUCRK3123-84-60 10:25:004.0[facility] GlitlitTNOWAEXUHQ4552-96-22 10:25:0036.1[facility] YwjidfjCUIUXIMMNR8548-78-24 10:25:0048.0[facility] FugjffmNJHXZSMJOD9830-07-59 10:25:000.1[facility] CARDIAC HVYZVPJ4215-30-34 04:22:00<0.02[facility]annCARDIAC ENZYMES 2015-07-16 04:22:0088[facility]annCARDIAC CSIPIRF2518-49-54 04:22:001.1 [facility]annCARDIAC BSCTLNR6763-11-86 04:22:001.0[facility]annHEMATOLOGY 2015-07-15 21:33:006.4[facility]annCARDIAC VLGPYJR1054-97-30 21:33:00<0.02 [facility]annCARDIAC CGIVIRU1447-05-40 21:33:001.2[facility]annCARDIAC IGGSGMB1068-82-71 21:33:25556Uyzvdmko HermannCARDIAC KQXSVYP2161-28-60 21:33:00 1.2[facility] HermannCHEM VFLAW5030-55-69 21:33:0090[facility] HermannCHEM PANEL 2015-07-15 21:33:0091[facility] HermannCHEM VMIMC3473-43-61 21:33:0019[facility] HermannCHEM GYGVM9177-44-20 21:33:0017[facility] HermannCHEM KKRYZ9265-82-93 21:33:0012[facility] HermannCHEM NLTQH6851-70-64 21:33:000.8[facility] HermannCHEM BVQVR4570-15-97 21:33:0011.1[facility] HermannCHEM ONUES7934-09-71 21:33:003.5 [facility]annCHEM DVVBG0924-58-53 21:33:0027[facility]annCHEM PANEL 2015-07-15 21:33:006.8[facility]annCHEM WOQPG4575-90-31 21:33:008.7[facility]annCHEM KEPXH2222-72-51 21:33:003.3[facility] HermannCHEM AJSOY9521-75-33 21:33:001.1[facility]annCHEM JVVCS3388-66-90 21:33:000.80[facility]annCHEM BODVL3547-51-40 21:33:87654Hczxykkr HermannCHEM HMCDD3294-76-45 21:33:14772 [facility]annCHEM SZMRG6478-10-10 21:33:004.1[facility]annCHEM PANEL 2015-07-15 21:33:0010[facility] HermannCHEM KHGLA8552-80-08 21:33:0072[facility] XvfryabNPXHAFBTIA3417-67-39 21:33:003.3[facility] VfziqxxAQCTQWUJKC2668-86-54 21:33:000.2[facility] CmqqltcFVJYLRTDNP0149-28-40 21:33:000.6[facility] SIRQAASSAK0763-15-38 21:33:002.3[facility] NeurkadOQGVKAKXOQ9723-09-55 21:33:00 51.8[facility] XwknfkdZQBWWPIHXG1329-92-79 21:33:000.6[facility]annHEMATOLOGY 2015-07-15 21:33:003.1[facility] WqzqcrqISYBOEEPHR5446-39-39 21:33:009.4[facility] MeesuyiSMERVERXAC5400-61-48 21:33:0035.1[facility] EmcgvlhHDXAEPQKMT5949-23-59 21:33:000.0[facility] EpobnbtMOWSWJTYRP1814-68-42 21:33:009.1[facility] [place] AGDPEFDOKL4346-23-53 21:33:0087.6[facility] ChcwuatWKYBTEPKTF9036-47-67 21:33:00 12.9[facility] QzeddnlINAEMKQKPB5257-04-21 21:33:0039.8[facility] HermannHEMATOLOGY 2015-07-15 21:33:0032.3[facility] JajhmijAHVYPMUWEP2897-12-48 21:33:0014.8[facility] GkuronuYWDUODGZOZ7037-95-63 21:33:00 Test Item Value Reference Range Interpretation Comments MCH (test code = MCH) 28.3 pg 27.0-31.0 [facility] DlnxpjwFMOJNPWXGH8598-90-95 21:33:99392Xmuedfjg HermannHEMATOLOGY 2015-07-15 21:33:004.54[facility] WyxhhgmUKJEVPAYEI4969-42-73 19:18:00Negative (05/18/15 2:18 PM)[facility]annCARDIAC UGMYFFA9613-79-15 18:26:00<0.02 [facility]annCHEM OCVAQ6995-58-83 18:26:000.1[facility] HermannCHEM PANEL 2015-05-18 18:26:003.9[facility] HermannCHEM YNFCZ6873-99-93 18:26:71578Siloykig HermannCHEM AHCMY1673-53-41 18:26:000.5[facility] HermannCHEM CDLEX4581-84-15 18:26:0022[facility] HermannCHEM XLKUE5290-18-52 18:26:0018[facility]annCHEM GJGOS0869-94-88 18:26:007.9[facility] HermannCHEM VYZWG0506-08-76 18:26:004.0 [facility]annCHEM NRZTA0721-43-77 18:26:000.4[facility] HermannCHEM PANEL 2015-05-18 18:26:001.0[facility] HermannCHEM RHEXN8591-55-63 18:26:02700Ecubbgxo HermannCHEM ZOFBZ6332-29-26 18:26:0078[facility]annCHEM IYIPY8656-41-60 18:26:70868Qhoqfsbi HermannCHEM CBSOA5864-56-10 18:26:003.9[facility] HermannCHEM IGLOU9290-06-15 18:26:000.9[facility]annCHEM JGXVP1561-61-61 18:26:0087 [facility]annCHEM ITDZB2878-89-02 18:26:007[facility] HermannCHEM PANEL 2015-05-18 18:26:39385Bqtbzxpb HermannCHEM WYRAS4833-06-16 18:26:0028[facility]annCHEM AWUOG6399-01-03 18:26:0010.2[facility]annCHEM SKFUB3518-39-29 18:26:0010.9[facility] CncxhxxYOOIJHNHQS6405-98-44 18:26:0014.2[facility] LAWOBVCXIF5898-94-54 18:26:004.96[facility] IxbnckcCCBLKOTYED9927-14-91 18:26:00 Test Item Value Reference Range Interpretation Comments MCH (test code = MCH) 28.7 pg 27.0-31.0 [facility] DdulgcuEWLGYNTWAB0455-81-37 18:26:0032.9[facility] HermannHEMATOLOGY 2015-05-18 18:26:0043.3[facility] SbbjoiyQKEQEKYBLQ4963-20-24 18:26:0087.2[facility] WygrnheCPIPLVJEFZ2614-55-95 18:26:006.8[facility] LrjcxgrGRBYOZWTNE7425-50-12 18:26:44356Ytcpfvmu WunifpvDRKHOISPOH6136-22-65 18:26:008.2[facility] MTARYUQPPW4282-30-53 18:26:0014.5[facility] SfpxlegFGYTECNGYN5384-19-74 18:26:00 55.6[facility] TfjdcofMFAPGHINZQ8492-67-94 18:26:0032.7[facility] HermannHEMATOLOGY 2015-05-18 18:26:008.5[facility] MttuecfKNCKZDQZPW1694-34-42 18:26:003.8[facility] WvtmgyoKDOOOUCUXE8264-07-47 18:26:000.6[facility] AcqifxzIFUCLFURDV0154-11-85 18:26:002.2[facility] FckhiidPMSEKABWVA6216-64-23 18:26:002.6[facility] TFLCMDOZBH7048-28-26 18:26:000.2[facility] FynxenvGVYHIRCMAF4218-77-79 18:26:000.6 [facility] QgbxmqrNLCVVXAZJM4893-53-26 18:26:00Positive *NA*(05/18/15 1:26 PM) [facility] RldcjzySIUKGFQPGT5658-00-45 18:26:13170480Oouldpjf HermannIMMUNOLOGY 2015-05-18 18:26:005.5[facility] HermannCARDIAC GRPBAST4532-43-29 18:51:00<0.02 [facility] HermannCHEM MKUMR5997-09-35 18:51:0090[facility] HermannCHEM PANEL 2015-05-09 18:51:0028[facility] HermannCHEM JNAXJ9887-35-02 18:51:009.6[facility] HermannCHEM UEPMS5946-28-37 18:51:64006Owsnaiot HermannCHEM HHZEQ8003-69-44 18:51:000.8[facility] HermannCHEM XRAUX0485-54-56 18:51:97951Cncvaeyv HermannCHEM BALSV2016-51-81 18:51:003.7[facility] HermannCHEM GILST7915-39-43 18:51:68427 [facility]annCHEM NSJKU0415-92-52 18:51:007[facility] HermannCHEM PANEL 2015-05-09 18:51:009.7[facility] BqmudvpFJIAPZVGLG4055-07-69 18:51:0014.4[facility] XrgzviqNWFWYWAWWL0538-15-77 18:51:0032.5[facility] BoxgagfSGUIXXXUCV9699-77-18 18:51:00 Test Item Value Reference Range Interpretation Comments MCH (test code = MCH) 28.7 pg 27.0-31.0 [facility] OzxkwnkMYAVTKAIXR0928-36-99 18:51:92967Vrcjljmf HermannHEMATOLOGY 2015-05-09 18:51:007.6[facility] PfqtnhsOOXVVSMRBG5475-03-35 18:51:0088.2[facility] WtfmhqbCKRUWSCJJA5556-21-01 18:51:0041.9[facility] QuxllvmMLJVVLOSXI3917-04-23 18:51:004.75[facility] FvfatorSVKYYVHCOM4704-40-03 18:51:0013.6[facility] KODHNTNKMX3701-11-32 18:51:005.6[facility] FhluumnXSWYPISRUO2623-06-40 18:51:002.1 [facility] OxhrgiqMUGSIJRCLG7862-17-25 18:51:000.1[facility] HermannHEMATOLOGY 2015-05-09 18:51:000.2[facility] AtpayhvTXPLUNCTXW9426-23-07 18:51:000.4[facility] CgkjbxhSZLHRRGCNJ0547-46-15 18:51:0050.8[facility] KffsvjbNGOJZZPRFY6812-25-85 18:51:002.8[facility] VbwhtsiLIEZKCXUQZ4853-87-31 18:51:002.9[facility] FMEXGVKIYX6685-08-42 18:51:001.1[facility] InxqtngWLKGANFMAJ9413-02-06 18:51:007.7 [facility] EeiaejmHPRDJGGJEK0522-77-44 18:51:0037.6[facility] HermannCARDIAC ENZYMES 2015-05-02 22:03:00<0.02[facility] HermannCHEM PVGCT7584-51-42 22:03:003.2 [facility]annCHEM JMNVW8371-85-00 22:03:002.1[facility] HermannELECTROLYTES 2015-05-02 22:03:0012.4[facility] OgxoxdlITVKHTPOUVSJ8492-97-31 22:03:0068[facility] CazztvcGIIVXDGCGLTF8860-34-16 22:03:97451Mgwhbyeu AytsprzVKNAHJOMMHTN3208-18-67 22:03:35089Ukxhhyzm NxxfwvhUMOMNIHGOJXF5266-73-69 22:03:0028[facility] AEGBJQOYMMSP7431-15-52 22:03:008.8[facility] FrkfbrcKOTLHEIXISRY5787-15-38 22:03:003.4[facility] EaaebhsPTZBEIHYVYHI5826-71-52 22:03:000.9[facility] NZVWKGKWQOGV5955-84-17 22:03:0092[facility] KhwaddvZIHRPIEASDJQ4486-33-00 22:03:00 6[facility] IhtjgkmIGYOXEMMPW0954-98-44 22:03:008.0[facility] HermannHEMATOLOGY 2015-05-02 22:03:0014.1[facility] JltwqdfSTZBSKIGYD2342-82-65 22:03:31947Ujqugssm CsoiqvoZPKYYXWCYA3791-90-17 22:03:0032.6[facility] HejpfcqOHLKFUKHPJ2244-69-79 22:03:008.0[facility] RntqvjbBNXYJYXXUX1925-34-77 22:03:0040.2[facility] NEKANRYLVD8333-99-43 22:03:0087.4[facility] HefydwqVOKGIHEAIR1409-59-95 22:03:00 13.1[facility] InjbvouALJSDLAPIJ3333-55-09 22:03:004.60[facility] HermannHEMATOLOGY 2015-05-02 22:03:00 Test Item Value Reference Range Interpretation Comments MCH (test code = MCH) 28.5 pg 27.0-31.0 [facility] BarlmyyEEHWEVSKJE1406-48-16 22:03:0026.3[facility] HermannHEMATOLOGY 2015-05-02 22:03:0060.9[facility] EsyjpmcCAYSXMEBEC4629-49-75 22:03:001.0[facility] XsgudhvEXRWREAKGY3393-14-77 22:03:003.0[facility] IagxvmeHDCNANSXOA9699-08-93 22:03:008.8[facility] KizqewoRYQVBVTBDB4326-47-00 22:03:000.7[facility] FVYWXDZRKH2674-62-55 22:03:000.2[facility] WeqjfvvXEYNYUUBPF4732-09-74 22:03:002.1 [facility] FuxbkhdCRSRRNRNUX8403-33-25 22:03:004.9[facility] HermannHEMATOLOGY 2015-05-02 22:03:000.1[facility]annURINE AND DYOJJ0519-78-93 21:38:00Negative (05/02/15 4:38 PM)[facility]UR[facility] AND NDHSQ3944-74-26 21:38:00Moderate *ABN*(05/02/15 4:38 PM)[facility] UVOYI5043-94-78 21:38:00None Seen (05/02/15 4:38 PM)[facility] PPAKO8908-18-37 21:38:00None Seen (05/02/15 4:38 PM)[facility] OXZTN1872-52-96 21:38:00Negative (05/02/15 4:38 PM)[facility] SLDER5867-26-52 21:38:00Negative *NA*(05/02/15 4:38 PM)[facility] MQTAU8712-61-83 21:38:000.2 [facility] GJIUX0949-60-78 21:38:00Negative (05/02/15 4:38 PM) [facility] QKYOD1514-96-75 21:38:00Negative *NA*(05/02/15 4:38 PM) [facility] AMACK7100-01-48 21:38:00Yellow *NA*(05/02/15 4:38 PM) [facility] CFIKN1782-04-92 21:38:00 Test Item Value Reference Range Interpretation Comments UA pH (test code = UA pH) 6.0 1 5.0-8.0 [facility] AND RCBZN9639-33-90 21:38:00Slight Cloudy (05/02/15 4:38 PM) [facility] YEQYK9169[facility]88-55 21:38:00Negative (05/02/15 4:38 PM) [facility] YPOIN1712-57-13 21:38:00 Test Item Value Reference Range Interpretation Comments UA Spec Grav (test code = UA Spec 1.006 1 Grav) [facility] DTNFG8446-23-71 09:28:0034[facility] PANEL 2015-03-24 09:28:000.6[facility]CHE[facility] JOXCW0107-09-48 09:28:0095[facility] DVNIB2358-74-11 09:28:006[facility] ACBWY7818-42-50 09:28:001.1[facility]CHE[facility] GCTUQ6496-77-58 09:28:003.1[facility] FKRFICBAEC8067-59-15 09:28:0011.3[facility] JjbaehcHZICOGLRTP7571-54-19 09:28:00 27.1[facility] DjxhnflCANHOJVCAY7335-16-97 09:28:005.9[facility]annHEMATOLOGY 2015-03-24 09:28:003.3[facility] NoamezwLUITCWDHUO6389-86-49 09:28:000.7[facility] JperchuAGFDLGYFDB0854-93-46 09:28:0055.0[facility] MywchflHXJNYHPUML4636-59-32 09:28:000.7[facility] ZavxfjdLRWTBMPZJH4747-75-67 09:28:001.6[facility] OFTPTZJIKH8619-10-22 09:28:000.4[facility] GzhajhoMOVSKBICAX2139-50-11 09:28:00 4.21[facility] DpjvwefPXWNWOKPFZ7250-24-55 09:28:005.9[facility]annHEMATOLOGY 2015-03-24 09:28:67774Gyxqjhzf GmlfhpqDFZVSVKCZE5066-07-92 09:28:0032.4[facility] XfwpmspRUMRPLUKSJ6369-81-03 09:28:0014.2[facility] XkuywseOYPAZEICEA9160-95-85 09:28:008.6[facility] DssnqalLQIFFFJWFQ3258-73-86 09:28:0037.2[facility] UEMYQCCFKP6550-45-19 09:28:0088.3[facility] QyawfnnPNDGRTYAGA6232-45-23 09:28:00 12.1[facility] VxgpdobTKMVKCMSEQ6321-23-02 09:28:00 Test Item Value Reference Range Interpretation Comments MCH (test code = MCH) 28.6 pg 27.0-31.0 [facility] VFJWA0775-83-85 09:28:09476Ynibfyvy HermannCHEM PANEL 2015-03-24 09:28:47988Vkxcrdqb HermannCHEM OEJSK9027-14-55 09:28:000.7[facility]annCHE[facility] KWVZO3330-35-28 09:28:004[facility]CHE[facility] OOMDI9806-18-07 09:28:003.2[facility]annCHE[facility] TNDFX4186-08-70 09:28:89096Datzbzvn HermannCHEM WGDKG7102-43-32 09:28:0091[facility]CHE[facility] YXVEF2974-00-89 09:28:003.5 [facility]CHE[facility] NJGLH5597-10-26 09:28:006.6[facility]annCHEM PANEL 2015-03-24 09:28:89422Lhldqvgl HermannCHEM TPQXL4045-44-02 09:28:009.1[facility]annCHE[facility] VFRST1667-45-98 09:28:0027[facility]annCHE[facility] UDEVT6449-77-07 09:28:0011.2[facility]annCHEM WIEEG5598-70-14 09:28:0021[facility] XICWF4918-58-81 18:14:00Negative (03/23/15 1:14 PM)[facility]CARDIAC YNHDLUL8254-39-59 10:51:000.8[facility]annCARD[facility]AC RDINULB5531-86-31 10:51:00 70[facility]CARD[facility]AC UJLZQXR6695-28-11 10:51:001.1[facility]annCHEM WZNYP4433-54-67 10:51:69141Zirbhcng HermannCHEM XMJTI6590-84-59 10:51:0027 [facility]CHE[facility] FMZKF1829-47-69 10:51:009.2[facility]annCHEM PANEL 2015-03-23 10:51:43542Aatmqdsh HermannCHEM ILYVJ0846-19-20 10:51:17721Llrrbwxm HermannCHEM JNXCC0353-66-15 10:51:003.5[facility]annCHEM BJAVI9123-91-66 10:51:000.7[facility]annCHEM KBORV5378-52-28 10:51:008[facility]annCHE[facility] EGKPB8221-52-72 10:51:83111Azmcfywu HermannCHEM QBCBE9435-92-36 10:51:0010.5 [facility] KckvbhiUVDNVZEKPD7799-89-19 10:51:001.3[facility]annHEMATOLOGY 2015-03-23 10:51:003.4[facility] QsxlqezSPDVDAFYJB8129-10-55 10:51:000.6[facility] ZeompdrIVIAMQYBKB8186-29-07 10:51:004.0[facility] GhvytdcAGHDACKMVC7353-61-14 10:51:000.2[facility] TakjundKTINVCZYPE5508-12-52 10:51:000.6[facility] CRSRXDQKPF5207-96-97 10:51:0011.0[facility] UyslpgcWZZCLCPCZV6729-99-76 10:51:00 23.6[facility] NtblfzdOUOLRRRMYG1937-20-87 10:51:0060.8[facility]annHEMATOLOGY 2015-03-23 10:51:008.3[facility] FnpidkmQBADDYYXYA9805-66-14 10:51:33627Unsrptxw EqvnhepXNBFZWHXYJ5702-96-31 10:51:0014.6[facility] JtddmhoKMPADTVRHU5668-59-50 10:51:0088.0[facility] YbyqtqaBRVRUAPPSY6209-36-82 10:51:00 Test Item Value Reference Range Interpretation Comments MCH (test code = MCH) 28.7 pg 27.0-31.0 [facility] VmnsbnmVKNGIUSBSG3985-90-33 10:51:0034.7[facility]annHEMATOLOGY 2015-03-23 10:51:0032.6[facility] DsuxdogAFDXDVPWHD2668-91-96 10:51:0011.3[facility] TxhasazGAYRJMQKHZ2338-73-41 10:51:003.94[facility] VwuotqwGIKBGIVGRY1525-53-61 10:51:005.6[facility]annCARDIAC LKHVMXS3206-58-30 10:19:001.6[facility] CARDIAC JSXJQZN4062-03-75 10:19:001.0[facility]CARD[facility]AC JBJWNQV9436-62-69 10:19:0064[facility]annCHEM XKWWG3081-12-84 10:19:42420Zvjbopkc HermannCHEM NEMHM1245-23-00 10:19:008.7[facility]annCHEM VELFK9445-89-51 10:19:87682 [facility]CHE[facility] ITXHF1689-12-66 10:19:003.9[facility]annCHEM PANEL 2015-03-22 10:19:49001Vmujwkok HermannCHEM WVJPT6259-38-66 10:19:0027[facility]annCHEM MQFIB3057-50-88 10:19:0094[facility]annCHEM IURVC8836-74-41 10:19:008[facility]annCHEM NIHEK8889-94-03 10:19:000.6[facility]annCHEM JQPLJ2865-40-44 10:19:008.9[facility] NyuwaxwDAQOTVJJOH0582-48-77 10:19:000.2 [facility] QfkagftHAXFJFBXBC7653-75-65 10:19:000.5[facility]annHEMATOLOGY 2015-03-22 10:19:000.9[facility] EscjggdFKERTHWVYH9592-58-11 10:19:0011.2[facility] MzwrjmvKJYSXVWKNB2046-27-15 10:19:002.1[facility] UkfgjpdFQOUCYMSHM4149-29-80 10:19:003.7[facility] KzmftjgUCTMFPMWOV2745-80-24 10:19:001.6[facility] EKWWJRLJBP2618-45-28 10:19:0048.6[facility] HsmfcbwWDNNSZTKDZ8337-62-62 10:19:00 35.6[facility] EylenkdBNDUZPESAP2521-73-24 10:19:008.9[facility]annHEMATOLOGY 2015-03-22 10:19:004.4[facility] OxbvdshARHKFSDEJY7447-23-17 10:19:00 Test Item Value Reference Range Interpretation Comments MCH (test code = MCH) 29.9 pg 27.0-31.0 [facility] EokqugtORQLIGDPYU4494-55-99 10:19:0086.5[facility]annHEMATOLOGY 2015-03-22 10:19:0034.6[facility] GloywlkDQXWJDZXQF6856-64-50 10:19:0011.7[facility] BvnzfmsQYXVTUKIDT0539-14-66 10:19:003.92[facility] HafkuctFOHXNHLZTV1794-78-72 10:19:0033.9[facility] XxjgpymTYNZFNRUQI3195-66-10 10:19:0014.6[facility] FGHGIVKAHK4869-37-84 10:19:90007Himxoxjc HermannCARDIAC KECCRKV4173-94-32 03:22:001.6[facility]annCARDIAC XIIHZZM9617-36-10 03:22:0077[facility] CARDIAC LLSBBKT9587-28-67 03:22:001.2[facility]annCHEM BVOSP3109-24-63 02:44:001.4[facility]annCARDIAC OYPOBHH0794-15-45 21:13:00<0.02[facility]annCHEM CXZHS5606-27-23 21:13:003.3[facility]annCHEM ZMMJA4900-37-44 21:13:001.1[facility]annCHEM ZYNCO6314-63-20 21:13:0016[facility]annCHEM YNZVF8434-49-10 21:13:32603Huibmdkr HermannCHEM MEMYD3598-80-55 21:13:0025 [facility]annCHE[facility] DDCVG5420-33-49 21:13:000.5[facility]annCHEM PANEL 2015-03-21 21:13:0032[facility]annCHE[facility] NGPFY1557-50-30 21:13:003.7[facility]annCHEM UFWUJ8501-16-74 21:13:007.0[facility] IydzexkRBAETSITGA7471-09-19 21:13:000.0[facility] ZqheedgPNBLGUOPBJ5226-77-65 21:13:001.04[facility] QTPUOOZFRT3915-09-60 21:13:00 Test Item Value Reference Range Interpretation Comments PT (test code = PT) 13.6 s 12.0-14.7 [facility] DlkcnohKXAYATOVCX3549-69-24 21:13:00 Test Item Value Reference Range Interpretation Comments PTT (test code = PTT) 35.2 s 22.9-35.8 [facility]CARDIAC RSOKZNP3145-69-12 21:10:006[facility]annCARDIAC SXCXZYE9575-75-93 21:02:00<0.02[facility]annCARDIAC SAJULZV7359-74-18 21:02:0031[facility]annCARDIAC WSKBNJU1682-14-37 21:02:000.8[facility] CARDIAC MUOTAZM3101-43-36 21:02:0070[facility]annCARDIAC MUGOUHM7854-30-58 21:02:001.1[facility]annCHEM XJRYL8996-21-44 21:02:83859Kiyqvkdo HermannCHEM JUNVL1693-75-95 21:02:0099[facility]annCHEM LFQGJ4445-68-79 21:02:000.6 [facility]annCHE[facility] RJLVS0801-78-62 21:02:0011[facility]annCHEM PANEL 2015-03-11 21:02:009.4[facility]annCHEM PEGXR6853-77-55 21:02:003.1[facility]annCHEM KEUYP6383-39-34 21:02:001.1[facility]annCHEM PQGZZ0113-41-20 21:02:0073[facility]annCHEM CWCMN8297-85-44 21:02:008[facility]annCHEM EIGKQ9957-91-80 21:02:000.7[facility]annCHEM JMZPN4337-19-31 21:02:30285 [facility]annCHEM WLTLM8565-80-19 21:02:003.4[facility]annCHEM PANEL 2015-03-11 21:02:0028[facility]annCHEM IRFUZ6918-94-81 21:02:43432Xwmqafgd HermannCHEM RZKZF8045-17-25 21:02:008.9[facility]annCHEM TFRTL7991-26-73 21:02:006.5[facility]annCHEM BFGQE9365-75-44 21:02:003.4[facility]annCHEM CJSPR6985-48-98 21:02:0030[facility]annCHEM KXXAG1904-36-58 21:02:0021 [facility] YsqfmfhZYNQFETZUI2463-20-83 21:02:0015.1[facility]annHEMATOLOGY 2015-03-11 21:02:0033.1[facility] KyexpleKZNUJOVRUW6042-20-56 21:02:83786Egjvddax FbspjdmDOPIRKWDFC7003-05-05 21:02:008.1[facility] UhmckmpWOKIDRWBWR0527-88-77 21:02:0034.6[facility] LuwihuxMHCNJFKIZO3737-80-87 21:02:0011.5[facility] FTSPRCALOU2044-03-95 21:02:00 Test Item Value Reference Range Interpretation Comments MCH (test code = MCH) 28.8 pg 27.0-31.0 [facility] KszemynWPFEGXWRCD0803-53-62 21:02:0086.9[facility]annHEMATOLOGY 2015-03-11 21:02:003.98[facility] OkamzwoZLGLUOUFKY3516-46-86 21:02:006.5[facility] PuqoviyQSFZFHBFHV2873-91-92 21:02:00 Test Item Value Reference Range Interpretation Comments PTT (test code = PTT) 32.8 s 22.9-35.8 [facility] CwnacqfTXWXRDNYSK0343-94-69 21:02:00 Test Item Value Reference Range Interpretation Comments PT (test code = PT) 13.3 s 12.0-14.7 [facility] NzamjazIXHVQOZNEJ2338-29-23 21:02:001.01[facility]annHEMATOLOGY 2015-03-11 21:02:000.0[facility] OsqlgfiCHRJPCLYQG7567-10-24 21:02:003.7[facility] UjeezswPCJIBDQSCS5681-80-03 21:02:000.2[facility] YeqtgyeVXCKZPKZLR9101-82-04 21:02:000.6[facility] MrvziqlZQMBFUGFQV1079-71-91 21:02:001.9[facility] AWDFODJXIW0254-68-71 21:02:0056.9[facility] DglszipCDQYWEONIO8835-86-35 21:02:00 2.7[facility] IddxjiyKDBKVMRGZS3965-53-67 21:02:000.4[facility]annHEMATOLOGY 2015-03-11 21:02:009.9[facility] AhsdnxmDRECNWTEUI8054-93-56 21:02:0030.1[facility]annCARDIAC YIREEKG5274-82-66 09:33:00<0.02[facility]annCARDIAC ENZYMES 2015-03-05 06:16:00<0.02[facility]annCHEM OONAA5086-99-51 06:16:001.1 [facility]annCHEM VWBPM6350-07-72 06:16:003.5[facility]annCHEM PANEL 2015-03-05 06:16:000.5[facility]annCHEM JGFLA3712-16-31 06:16:000.1[facility]annCHEM HWHXB8678-02-97 06:16:0025[facility]annCHEM VEMOQ1754-97-06 06:16:0021[facility]annCHEM WGSPV9651-82-70 06:16:003.7[facility]annCHEM FPYMZ6299-81-17 06:16:76727Fgjyhgrk HermannCHEM UWIJK9573-13-54 06:16:000.6 [facility]annCHEM CRTVU0875-58-87 06:16:007.2[facility]annCHEM PANEL 2015-03-05 06:16:48374Rivsvvkr KxmyhtxFTIPCCOAJMSE4826-51-35 06:16:0012.6 [facility] RsqjmiaMRZHKKJPBXVZ9759-26-44 06:16:0078[facility] HermannELECTROLYTES 2015-03-05 06:16:009.6[facility] NblisseMOOWWFBLPFXJ7971-81-61 06:16:0029[facility] JxjnhmdBGKNBITRHCBA4447-03-95 06:16:003.6[facility] UqqhaycOUILRJBYGYJX5029-46-07 06:16:35341Tscutfro XomnafaSCVOXKEWPAMU2552-99-15 06:16:00946Ipgupugo [place] WYVLLRAEONVG2253-69-55 06:16:000.8[facility] WshtbeeQPJOTFCDILMC8986-45-86 06:16:009[facility] UvevzvxFVXQNIQZBPOY7027-77-36 06:16:0096[facility] IIEJGBMVWG1596-48-82 06:16:002.6[facility] ZocldfbUBUPYVVJDP7046-22-72 06:16:000.9 [facility] WvpmgkvUSLOPQAFRZ4455-27-27 06:16:000.7[facility]annHEMATOLOGY 2015-03-05 06:16:001.7[facility] ZkqgzbwWJQMCBAGDU3521-96-25 06:16:006.7[facility] PvkptzmUMLVUCXSRI6469-56-84 06:16:0025.0[facility] PjwzkehFTINYIAEHQ6669-32-41 06:16:0064.3[facility] IputvpkMHCWLAZMUT2987-54-86 06:16:008.3[facility] ZDMOXVTHZX2510-26-50 06:16:000.2[facility] IvumbinKJXWZVSJFC5761-73-43 06:16:000.1 [facility] PjolwcxSOSKMJFRTU1066-33-47 06:16:0087.7[facility]annHEMATOLOGY 2015-03-05 06:16:0039.7[facility] OjtjxysIEXVUJDSFU3167-80-60 06:16:008.0[facility] XeqkjijYSIRVTTHKL6808-87-04 06:16:11328Hbaoxkwh YxdggaiKPJSZGQPJW3004-16-24 06:16:0014.6[facility] KeekajrVDGLAQLTGI0690-99-27 06:16:0032.4[facility] EIRAKPHSPH4834-40-64 06:16:00 Test Item Value Reference Range Interpretation Comments MCH (test code = MCH) 28.4 pg 27.0-31.0 [facility] TugoorwTFWOGNRHLU6678-18-05 06:16:0010.5[facility]annHEMATOLOGY 2015-03-05 06:16:004.53[facility] VumpptlXUAPFXUHXJ8740-75-57 06:16:0012.9[facility]annCHEM TRAAJ7794-14-82 09:16:002.0[facility]annCHEM WFQNX3824-94-48 09:16:003.6[facility]annCHEM XVFGG4336-80-58 09:16:27725Svfrhuuh HermannCHEM RTHJZ9427-04-80 09:16:0017[facility]annCHEM ZLJSX0137-91-99 09:16:003.3 [facility]annCHEM EXVLU6991-97-21 09:16:001.1[facility]annCHEM PANEL 2015-02-25 09:16:006.3[facility]annCHEM UHCWT8690-57-99 09:16:0021[facility]annCHEM IWWMO3441-83-18 09:16:003.0[facility]annCHEM XUHGN6074-78-98 09:16:000.5[facility]annCHEM NEGJO1092-98-43 09:16:13385Qqxxkzka HermannCHEM WFGQE9834-53-94 09:16:0011[facility]annCHEM CRBTP0538-02-69 09:16:009.1 [facility]annCHEM KVEVW3705-61-03 09:16:0099[facility]annCHEM PANEL 2015-02-25 09:16:008[facility]annCHEM OHTZE2607-93-95 09:16:32590Cuqqdbuf HermannCHEM SRUVU1002-20-74 09:16:000.7[facility]annCHEM NVKEU7091-02-06 09:16:008.9[facility]annCHEM ADKRZ1691-20-12 09:16:82500Kbsrzjtx HermannCHEM VFKGK2391-75-47 09:16:0028[facility]annCHEM FWTFT1611-85-52 09:16:003.9 [facility] KjvjazfFIWJFMUDDD2779-35-96 09:16:12355Snbtlwws HermannHEMATOLOGY 2015-02-25 09:16:008.8[facility] EztkrrgHBQQIOWEGP2864-28-11 09:16:0014.9[facility] MgeaczqQGQKICDOGU6773-81-26 09:16:005.9[facility] ZlpcdqvXKPMVCNYOW0910-95-46 09:16:0088.4[facility] JpgdspeMQZYSDMCSH4548-06-24 09:16:0037.2[facility] HFXWXCYWRX3750-07-42 09:16:00 Test Item Value Reference Range Interpretation Comments MCH (test code = MCH) 28.6 pg 27.0-31.0 [facility] KxtvjozSWNKYZISJE1178-98-03 09:16:0032.4[facility]annHEMATOLOGY 2015-02-25 09:16:004.21[facility] FwxyenaLFJFKZKGJW6316-05-46 09:16:0012.0[facility] GkdtyksZFQNCASKVJ8353-26-84 09:16:0031.9[facility] LssqoaaMCDUDGBEKU9556-75-30 09:16:000.8[facility] ZtxhcjuRKNPMDYAIX5377-57-98 09:16:003.1[facility] KLXHTRUNVE2970-79-05 09:16:0011.6[facility] MgcrgnxOAGBCXFOXE2558-74-98 09:16:00 2.9[facility] IjbnvvgNKVUGYCKMN0667-05-78 09:16:0052.8[facility]annHEMATOLOGY 2015-02-25 09:16:000.7[facility] RidyqzgVCTDJQWDHM7496-35-85 09:16:001.9[facility] KnowqphEQTATZTLGI0741-54-47 09:16:000.2[facility]annCARDIAC FSTJQUC7143-06-37 04:30:0074[facility]annCARDIAC XEPJKXI0776-54-11 04:30:001.2[facility] CARDIAC JEOMUBL2617-63-23 04:30:00<0.02[facility]annCARDIAC ENZYMES 2015-02-25 04:30:000.9[facility]annCARDIAC RJXYATZ6812-18-33 23:29:00<0.02 [facility]annCARDIAC HOGCZHX5810-63-76 23:29:000.7[facility]annCARDIAC YZOHMKJ6171-85-52 23:29:0068[facility]annCARDIAC QRSHALG9426-35-25 23:29:00 1.0[facility]annCARDIAC EBYNEWI2319-66-22 17:33:000.9[facility]annCARDIAC TLITYMM2732-29-88 17:33:00<0.02[facility]annCARDIAC QXSAUJE7157-18-32 17:33:000.7[facility]annCARDIAC PGWWAAU1190-93-48 17:33:0076[facility] CHEM MHGKV1386-87-06 17:33:0090[facility]annCHEM QTISX4613-03-41 17:33:003.1 [facility]annCHEM HKGDN9892-29-41 17:33:69737Batutmzw HermannCHEM PANEL 2015-02-24 17:33:000.3[facility] HermannCHEM UQEPL7582-24-98 17:33:001.1[facility] HermannCHEM EGSZG9676-02-22 17:33:007.3[facility] HermannCHEM AHLAL9164-41-62 17:33:0012[facility]annCHEM CUZSC9682-99-00 17:33:000.8[facility]annCHEM HQAAQ3418-94-21 17:33:31370Bctjvquj HermannCHEM ZWQLH4890-55-91 17:33:0088 [facility]annCHEM HJAEM2571-28-90 17:33:003.3[facility] HermannCHEM PANEL 2015-02-24 17:33:83674Syiyfswv HermannCHEM WYNRY7823-53-65 17:33:0010[facility]annCHEM JLQFM3235-00-56 17:33:0015Mem[facility] HermannCHEM YAGZV3856-83-48 17:33:0022[facility]annCHEM DREEM1553-47-31 17:33:008.9[facility] HermannCHEM DJEBI3865-03-02 17:33:0030[facility]annCHEM WACGX9525-96-11 17:33:006.6 [facility]annCHEM YDBFG0150-53-33 17:33:003.5[facility] HermannHEMATOLOGY 2015-02-24 17:33:0055.9[facility] EafxqaoQJGFKBOMBU3273-78-01 17:33:0028.7[facility] IccipnvEEYKEVUGEA1662-67-95 17:33:003.7[facility] LirueioATPDOUXRHJ8145-07-99 17:33:000.7[facility] SthtjbaCGWJVREYKP4831-13-20 17:33:001.9[facility] AYGYBWSITH7551-29-53 17:33:002.2[facility] TssieapDJSHPSOJGV0382-15-33 17:33:00 12.5[facility] VipngivFVVHIWEWDL1015-64-93 17:33:000.0[facility] HermannHEMATOLOGY 2015-02-24 17:33:000.1[facility] NmdewcaCMYJNUVIHM1759-12-84 17:33:000.8[facility] JuykdnfHRQFZEIRPQ6928-57-40 17:33:008.8[facility] AiqaczxRTHCGFGPIF0819-13-12 17:33:00 Test Item Value Reference Range Interpretation Comments MCH (test code = MCH) 28.1 pg 27.0-31.0 [facility] JoflnnzNLHPYNHZIW2581-98-22 17:33:0014.8[facility] HermannHEMATOLOGY 2015-02-24 17:33:0032.2[facility] AtfgxotXYABVUXSSQ0417-30-11 17:33:05104Saszxfuu HkerskySNVJIXIINN3191-56-41 17:33:0011.4[facility] MudnuikPCSSWSGNDR1107-44-41 17:33:004.04[facility] KlozrzqQOTSXQSCPC4388-97-99 17:33:006.5[facility] RSDKAPWVTY3979-66-02 17:33:0035.3[facility] VnitzvoOSQBRALTDC6176-45-75 17:33:00 87.2[facility]annCARDIAC UVDEQRQ9307-45-09 09:54:006[facility]annCARDIAC VSWZHIR7371-37-31 09:54:00<0.02[facility]annCARDIAC LLNYUUV1895-57-74 09:54:001.0[facility]annCARDIAC UBTHZDP1277-30-60 09:54:0077[facility] CHEM HDQBR6478-73-05 09:54:001.8[facility] HermannCHEM ROOVV5416-26-09 09:54:24678 [facility]annCHEM LQZJC9625-93-09 09:54:60754Bsnbxubr HermannCHEM PANEL 2015-02-17 09:54:003.8[facility] HermannCHEM FLZLD5266-31-44 09:54:19222Hxuqiwky HermannCHEM ADTTG5614-89-63 09:54:008.6[facility] HermannCHEM KBHTV7684-72-30 09:54:0011.8[facility] HermannCHEM KUTYU7523-89-98 09:54:0025[facility] HermannCHEM VIIBV2138-74-82 09:54:000.6[facility]annCHEM SOMYJ1451-99-00 09:54:006 [facility]annCHEM CUYBQ2311-73-22 09:54:0072[facility] HermannHEMATOLOGY 2015-02-17 09:54:0011.5[facility] DufyebxQEDZMV9732-40-65 09:54:0051[facility] PmddvusMKOIED1521-45-54 09:54:0017[facility] DsxrwieKQTSTI2584-21-50 09:54:0096 [facility] OxloekdLPOHIK8010-33-59 09:54:83561Ubvgbpat PoxgxvyRMXKUK7077-78-70 09:54:0084[facility] WycgzbjNTSFUA3563-23-78 09:54:003.22[facility]annSPECIAL XSPIOXMAT3935-92-93 09:54:005.8[facility]annCARDIAC ZVTALMJ3741-31-01 04:20:00<0.02[facility]annCARDIAC PDXRFDH5052-50-57 04:20:0092[facility]annCARDIAC CZLJFNC4453-95-29 04:20:001.2[facility]annCARDIAC ENZYMES 2015-02-16 22:59:001.2[facility]annCARDIAC CCPCCDI9636-01-57 22:59:001.3 [facility]AC JQRTDXQ1023-61-96 22:59:0093[facility]annCARD[facility]AC MBZLDWF8051-06-11 22:59:00<0.02[facility]annCARDIAC NXSRVVE1466-47-04 22:59:004[facility]annCHEM QGNDK3713-85-09 22:59:35084Knsgmweb HermannCHEM RSNJT7893-20-07 22:59:001.0[facility]annCHEM NKQWH3320-59-86 22:59:003.6 [facility]annCHEM VVCUB6795-92-33 22:59:000.4[facility]annCHEM PANEL 2015-02-16 22:59:000.1[facility]annCHEM LJKYZ9601-82-63 22:59:000.5[facility]annCHEM FVTJS6996-79-06 22:59:007.3[facility]annCHEM AHJRA1477-52-57 22:59:56286Lzxiulvp HermannCHEM DHFNI4415-03-20 22:59:0015[facility]annCHEM FOPJD0772-49-91 22:59:0021[facility]annCHEM NUHYZ4006-42-49 22:59:003.7 [facility]annCHEM FAZRT4471-18-89 22:59:003.1[facility]annCHEM PANEL 2015-02-16 22:59:001.9[facility]annCHEM VYWSH4763-78-49 22:59:0090[facility]annCHEM REXRL3951-97-32 22:59:009.0[facility]annCHEM LXNHQ0326-32-61 22:59:0028[facility]annCHEM BRKQR1268-72-43 22:59:17319Mwgpldru HermannCHEM JTEFJ7480-92-63 22:59:000.8[facility]annCHEM FDVEC8320-86-58 22:59:0011 [facility]annCHEM PQJXP4250-30-83 22:59:003.5[facility]annCHEM PANEL 2015-02-16 22:59:94242Mnuhanwk HermannCHEM FCHHT8900-61-43 22:59:0076[facility]annCHEM IWOMY3749-13-49 22:59:007.5[facility] RuxmccsHTZQURCTZS7358-73-17 22:59:003.3[facility] MvyuozhIQYDLXARFY3657-19-39 22:59:009.1[facility] Maciej NCJLPBICYB3160-62-93 22:59:0028.9[facility] LvjlsuqDQEWOVZRSF1803-14-22 22:59:00 58.3[facility] DvchrnmDOAVDGBLQS1336-17-01 22:59:003.8[facility]annHEMATOLOGY 2015-02-16 22:59:000.4[facility] EvjgtlwQCYXTBOPRQ6837-12-41 22:59:000.6[facility] RhtbbdyFVOIZLGQQR1018-04-15 22:59:001.9[facility] HlphoyeSCCPYORSXW0742-64-81 22:59:000.2[facility] WtqkvbvGAVNDAEGQZ2067-51-44 22:59:000.0[facility] AHJOZKWGMG8484-75-14 22:59:00 Test Item Value Reference Range Interpretation Comments PTT (test code = PTT) 36.0 s 22.9-35.8 [facility] BitdirySWSEHELEJS3853-75-03 22:59:00 Test Item Value Reference Range Interpretation Comments PT (test code = PT) 12.9 s 12.0-14.7 [facility] MpzuchyHRMGLLFBHY6364-51-69 22:59:000.97[facility]annHEMATOLOGY 2015-02-16 22:59:88148Ccxcsirv ItvctyaBLVHOSFSDE6828-11-61 22:59:0014.7[facility] EpwlokwHGLMEDDEAJ1338-97-15 22:59:008.7[facility] KobgvowHALNAEXWPF1831-55-41 22:59:0032.6[facility] ZnhwzgwWDLSLCQSMM2311-97-03 22:59:0039.5[facility] XLDNSSLLBH5237-30-69 22:59:0087.3[facility] NcvufanYAZNKBQMYE7552-56-53 22:59:00 Test Item Value Reference Range Interpretation Comments MCH (test code = MCH) 28.4 pg 27.0-31.0 [facility] TqexyvlKRLGXYGPYY2560-58-03 22:59:004.52[facility]annHEMATOLOGY 2015-02-16 22:59:0012.9[facility] TxzaindRDIIIJTMSC4496-48-36 22:59:006.5[facility] OslgfthFXPOLEZCP5751-20-63 22:59:0046[facility]annCARDIAC UFLBWRL9664-89-76 21:17:0015[facility]annCARDIAC ZZVIVHM6236-52-42 21:17:00<0.02[facility]annCARDIAC GJYFGFB8923-33-16 21:17:0080[facility]annCARDIAC ENZYMES 2013-12-22 21:17:00<0.5[facility]annCARDIAC ZTKCCXT8914-44-12 21:17:00 <0.6[facility] HermannCHEM DEAAM8040-11-44 21:17:39955Yxuferkv HermannCHEM VNGDR2146-28-39 21:17:003.6[facility]annCHEM XXDXK2258-16-12 21:17:0017 [facility]annCHEM XDXOQ0280-01-64 21:17:001.1[facility]annCHEM PANEL 2013-12-22 21:17:38611Mtkzxtzm HermannCHEM LZXFM5358-06-18 21:17:0034[facility]annCHEM MKRWX4703-85-42 21:17:003.9[facility]annCHEM EDCVR1076-85-89 21:17:0089[facility]annCHEM CNVXJ0753-48-53 21:17:0022[facility]annCHEM AUZKP2047-68-41 21:17:000.6[facility]annCHEM HIQRT1408-43-86 21:17:005.5 [facility]annCHEM JEBGX3880-80-77 21:17:000.6[facility]annCHEM PANEL 2013-12-22 21:17:0010[facility]annCHEM PWXRV6596-87-34 21:17:003.5[facility]annCHEM OOPDQ8762-13-72 21:17:48309Prkcrhjn HermannCHEM XPXEQ0247-70-60 21:17:15614Aveyhldl HermannCHEM EXNDX7490-81-23 21:17:0029[facility]annCHEM FYREJ0075-22-21 21:17:007.5[facility]annCHEM DIMTD3085-63-35 21:17:009.2 [facility]annDRUG UHLSGH4423-90-20 21:17:00Negative *NA*(12/22/13 4:17 PM) [facility]DR[facility] DSJNRC3411-50-55 21:17:00Negative *NA*(12/22/13 4:17 PM) [facility]DR[facility] PATUGJ1639-82-75 21:17:00See Note 4*NA*(12/22/13 4:17 PM) [facility]DR[facility] UPCHRZ8755-36-68 21:17:00Negative *NA*(12/22/13 4:17 PM) [facility]DR[facility] YGRRSY8276-51-47 21:17:00Negative *NA*(12/22/13 4:17 PM) [facility]DR[facility] VGJYRJ8963-50-52 21:17:00Negative *NA*(12/22/13 4:17 PM) [facility]DR[facility] BDWIEV7956-39-35 21:17:00Negative *NA*(12/22/13 4:17 PM) [facility]DR[facility] DBIHEY0691-37-61 21:17:00Negative *NA*(12/22/13 4:17 PM) [facility] BnktdtgXYUBYXIPGW9974-69-47 21:17:00 Test Item Value Reference Range Interpretation Comments PTT (test code = PTT) 35.2 s 22.9-35.8 [facility] IlpykudIODBNOSPPL7429-21-10 21:17:00 Test Item Value Reference Range Interpretation Comments PT (test code = PT) 12.2 s 12.0-14.7 [facility] HaguzkvJWPLTNNNCW0090-15-81 21:17:000.91[facility]annHEMATOLOGY 2013-12-22 21:17:008.4[facility] UbjlwawFZCCNMRANM6259-47-53 21:17:00 Test Item Value Reference Range Interpretation Comments MCH (test code = MCH) 29.2 pg 27.0-31.0 [facility] UgpmhduJAEMJDIWBD7124-68-27 21:17:0033.4[facility]annHEMATOLOGY 2013-12-22 21:17:0014.5[facility] RscjgnlKSYNYTPNGR1141-28-42 21:17:72057Zpfekgzx OxucnkzKSOZJQYKUH8169-92-06 21:17:0041.6[facility] XjqwzlxQWETBENRTP7789-09-43 21:17:0087.5[facility] GnclvsdBRTVFREDTD0293-74-95 21:17:004.76[facility] MZYOIQXTTJ2552-58-93 21:17:0013.9[facility] PtdrnbiSVBWTYKGPW5152-00-51 21:17:00 8.5[facility] IcfovkwJAFLUSKCFC6119-02-56 21:17:000.2[facility]annHEMATOLOGY 2013-12-22 21:17:000.0[facility] AmvavhpCUUKGBKTUL6768-53-93 21:17:0066.1[facility] BesiqfpAJYGPUKNAS0135-58-05 21:17:006.1[facility] VngdudgRXSIIZKKRF6752-75-10 21:17:0025.0[facility] RkzrowkGTZMCHHKXZ5071-21-74 21:17:002.4[facility] IKINUPICAE0077-89-06 21:17:000.4[facility] PqxdsymLIVTJYVYLQ5711-14-07 21:17:002.1 [facility] BseuxiaREAENQNRCO6402-10-90 21:17:000.5[facility]annHEMATOLOGY 2013-12-22 21:17:005.6[facility]annURINE AND UCNUY0408-73-85 21:17:00Trace *ABN*(12/22/13 4:17 PM)[facility] OURDF6470-30-11 21:17:00Negative *NA*(12/22/13 4:17 PM)[facility] JJCLI1196-07-97 21:17:000.2 [facility] FXDZM9926-80-48 21:17:00Small *ABN*(12/22/13 4:17 PM) [facility] JOOWE7242-06-39 21:17:00Negative *NA*(12/22/13 4:17 PM) [facility] [facility] XYIJC9488-05-34 21:17:00Negative (12/22/13 4:17 PM) [facility] JGNDZ7905-03-20 21:17:00Clear (12/22/13 4:17 PM) [facility] XJXXZ9115-38-12 21:17:00Yellow *NA*(12/22/13 4:17 PM) [facility] NRBEU3668-74-99 21:17:00 Test Item Value Reference Range Interpretation Comments UA pH (test code = UA pH) 6.0 1 5.0-8.0 [facility] BOFRN0367-27-75 21:17:00 Test Item Value Reference Range Interpretation Comments UA Spec Grav (test code = UA Spec 1.015 1 Grav) [facility] OPYZZ1994-21-93 21:17:00Negative (12/22/13 4:17 PM) [facility] WDWNQ9290-94-50 21:17:00Negative (12/22/13 4:17 PM) [facility]CHEM QSTUD8606-07-67 15:55:312.7[facility]annCHEM PANEL 2013-12-17 15:55:312.2[facility] AcxnsphOUZMMGHFFUAU5920-71-73 15:55:3110.5 [facility] FdvchmwLJYGYWXSMQSU4193-81-57 15:55:3191[facility]annELECTROLYTES 2013-12-17 15:55:3110[facility] HxmsrldADLNINEVDMYY6867-72-52 15:55:310.8[facility] OhwayhoEHETBBKYDDAQ9405-99-06 15:55:89884Ylvwhhmy UjzihyfRAHPUHETHSYB8306-15-53 15:55:3187[facility] LmpscpzBSQGZVHYDPFB9944-54-40 15:55:3130[facility] [place] VQHLYVUXILPC0846-90-90 15:55:314.5[facility] BfynarnPATOPBRBHXYL8214-79-82 15:55:75837Zgidmudj IbjzyfaOMFNPEXRTSJL2037-87-23 15:55:318.6[facility] OZAQLUFPDR7057-29-93 15:55:310.97[facility] MuglbxnYMAKKVFMDV4907-66-71 15:55:31 Test Item Value Reference Range Interpretation Comments PTT (test code = PTT) 32.4 s 22.9-35.8 [facility] DwxqntaGAODEYAOBT8739-44-27 15:55:31 Test Item Value Reference Range Interpretation Comments PT (test code = PT) 12.8 s 12.0-14.7 [facility] BsazvkaKCZCCSKTRD2416-98-80 15:55:3113.7[facility]annHEMATOLOGY 2013-12-17 15:55:314.88[facility] WxnojetTVXXXNGGXE2044-62-68 15:55:31 Test Item Value Reference Range Interpretation Comments MCH (test code = MCH) 28.1 pg 27.0-31.0 [facility] MmobiqmKCJSQNWBQX5184-54-90 15:55:3142.1[facility]annHEMATOLOGY 2013-12-17 15:55:3186.4[facility] VujmrurSAXJGHHDOH0342-23-14 15:55:3114.3[facility] CxmnlbgIQOYKPWDSF7626-58-66 15:55:3132.5[facility] MmkydaaAJSVCSMDXP6413-15-91 15:55:318.4[facility] DaqstcmCNVHAHBNQB1766-73-11 15:55:96916Sgkpxxit [place] UZNQSLYEEA0047-05-22 15:55:317.2[facility] BzycycbWDJHVDDEYB7336-89-69 15:55:31 10.7[facility] WsmxfalMNCGQJUXMM3090-08-30 15:55:3127.2[facility]annHEMATOLOGY 2013-12-17 15:55:311.9[facility] ZvjpfgdOSQYXIROYG9746-87-03 15:55:313.2[facility] IccgoadGOXMFPABBZ5802-53-05 15:55:310.6[facility] VpycxbzDGAGEEQPZJ6447-15-03 15:55:314.2[facility] OwegfssCPLJVSMHHC5500-96-56 15:55:310.2[facility] [place] NMWYXFSZRY6127-27-89 15:55:310.8[facility] XntbweqFGOXQGJEOE0497-80-86 15:55:31 58.3[facility] HermannPARATHYROID PKXUPUZ2568-43-10 15:55:191.11[facility] PARATHYROID RFINTYA9067-37-58 15:55:191.17[facility] HermannDRUG QVMBZS5612-16-19 03:45:57Negative *NA*(12/16/13 10:45 PM)[facility]DR[facility] BGBUUQ5777-99-43 03:45:57Positive *ABN*(12/16/13 10:45 PM)[facility]DR[facility] BONBOI5891-36-75 03:45:57Negative *NA*(12/16/13 10:45 PM)[facility]DR[facility] EXXZVZ3798-10-45 03:45:57Negative *NA*(12/16/13 10:45 PM)[facility] TQKSVF3078-27-81 03:45:57Negative *NA*(12/16/13 10:45 PM)[facility]DR[facility] BXCTXV3935-96-50 03:45:57See Note 6(12/16/13 10:45 PM)[facility]DR[facility] ANAESG8168-88-70 03:45:57Negative *NA*(12/16/13 10:45 PM)[facility]annDR[facility] TRVQEF3448-68-65 03:45:57Negative *NA*(12/16/13 10:45 PM)[facility]annCARDIAC SEXPASG9825-20-90 03:45:0056[facility]annCARDIAC IDOYDSH8036-57-54 03:45:00<0.010[facility]annCARDIAC OHYDVVZ5035-44-71 03:45:00<0.02[facility]annCARDIAC ENZYMES 2013-12-17 03:45:0013[facility] UgrioujWFHMIV8269-30-28 03:45:0018[facility] TTITXM0795-43-94 03:45:0088[facility] ZiyxxqlYWBAIR8720-61-33 03:45:0088[facility] OrqhnnyAWZUYR1235-83-04 03:45:003.08[facility] BuppboiHOUBLK2390-15-19 03:45:66528 [facility] UbyposoOEXCWI8358-84-88 03:45:0051[facility]annSPECIAL CHEMISTRY 2013-12-17 03:45:005.3[facility] HermannTHYROID OACOJ5976-41-73 03:45:000.870 [facility]annCARDIAC NYBUDKV5180-11-27 22:09:0042[facility]annCARDIAC NFKMMTC9404-16-22 22:09:00<0.02[facility] HermannCHEM GSLJY4942-96-90 19:30:00 1.3[facility] OvlwvgmCHBURAAZGZ1551-21-73 19:30:00 Test Item Value Reference Range Interpretation Comments PT (test code = PT) 11.8 s 12.0-14.7 [facility] OkouzkyXQPHRQULCY1525-55-78 19:30:000.87[facility]annHEMATOLOGY 2013-12-16 19:30:00 Test Item Value Reference Range Interpretation Comments PTT (test code = PTT) 31.2 s 22.9-35.8 [facility] FbgoxbwBREKQMARDZ6584-35-59 19:30:004.69[facility]annHEMATOLOGY 2013-12-16 19:30:006.6[facility] UfxyxeoKDCNPHOWDG0239-27-07 19:30:0040.5[facility] CbqemdoOYBSSRVERI9377-93-68 19:30:0086.4[facility] HpyoukaBGNAEEZJSG6046-46-14 19:30:0013.6[facility] TjssdoeWRQYTQTMJA1380-77-47 19:30:00 Test Item Value Reference Range Interpretation Comments MCH (test code = MCH) 29.0 pg 27.0-31.0 [facility] CzeiwblBAYIFEUIBJ3474-50-28 19:30:0033.6[facility]annHEMATOLOGY 2013-12-16 19:30:19941Oggmuprr RxlstfjPLCDZUBIWU8901-65-75 19:30:0013.4[facility] JffbtdtKYQUMUMEMH8415-78-93 19:30:008.6[facility] WthfiuvEPJZCZUYYP8798-29-91 19:30:000.8[facility] VccjdacTRPEUSACDX7343-02-93 19:30:000.0[facility] [place] EDRIWQUSDW3289-84-92 19:30:0012.1[facility] JivfttsIMIIQZDYWW3847-56-86 19:30:00 3.8[facility] MkigsvyOKMYFZGHYS5689-39-39 19:30:000.6[facility]annHEMATOLOGY 2013-12-16 19:30:003.9[facility] OdtzfbcUXUJLQTQOV2395-79-58 19:30:000.3[facility] PzqdchlJVHOBRCBYS6816-43-23 19:30:001.6[facility] HgcxgtvOKEUEKONQE1455-26-19 19:30:0025.0[facility] FgvkpurCYVGXBPNDH2500-46-66 19:30:0058.5[facility] [place] CHEM EYMOX6521-93-47 17:43:2479[facility] HermannCHEM PPKMU7146-59-69 17:43:240.9 [facility]annCHEM YPSLQ7538-06-38 17:43:32510Qwjvkaqt HermannCHEM PANEL 2013-12-16 17:43:244.5[facility] HermannCHEM TTXPI0285-00-63 17:43:45090Wnxrejva HermannCHEM ARTTD7111-27-93 17:43:2478[facility] HermannCHEM VKTVN7290-76-78 17:43:2411[facility] HermannCHEM BHPTC3579-07-96 17:43:241.0[facility] HermannCHEM CVQSZ4843-85-98 17:43:2412[facility] HermannCHEM HFYFU2781-21-58 17:43:243.6 [facility]annCHEM LURYT8421-48-18 17:43:2416.5[facility]annCHEM PANEL 2013-12-16 17:43:247.2[facility] HermannCHEM WZAWG9143-44-41 17:43:2419[facility]annCHEM XOFBX4105-41-45 17:43:2423[facility] HermannCHEM XPMMG1850-33-43 17:43:249.2[facility] HermannCHEM PGGDG9061-51-13 17:43:240.3[facility] HermannCHEM KMWQR6273-14-54 17:43:243.6[facility] HermannCHEM IFCRJ0458-15-20 17:43:2487 [facility]annCHEM HBPOQ3720-98-62 17:43:2431[facility] HermannCARDIAC ENZYMES 2013-12-16 17:43:0056[facility]annCARDIAC DGFLALV7300-87-69 17:43:00<0.02 [facility]annCARDIAC CNEYRML6740-15-37 19:12:00<0.02[facility] CARDIAC YXWWPCM0441-85-82 19:12:0049[facility]annCARDIAC MRJXCVE6801-45-93 19:12:00<0.010[facility] CdcmlrdUIQQAYJBE2969-94-90 19:12:0036[facility] CARDIAC EZHHZPA8644-40-79 12:35:00<0.010[facility]annCARDIAC ENZYMES 2013-11-08 12:35:0054[facility]annCARDIAC BEJUCSB4010-35-45 12:35:00<0.02 [facility]annCARDIAC NUFYPHV8754-13-78 08:36:00<0.02[facility] NCFAKPCBXQHP0327-24-16 08:36:0011.4[facility] PttmimvNBKHSIDDYFBX1939-47-63 08:36:0069[facility] KydpvedKCUJAHPKDNHU6084-44-70 08:36:009.2[facility] [place] YAFFPJTNCJGA6355-12-67 08:36:0027[facility] LcfwqnaAQZVZSZLOBBK1649-52-62 08:36:00 105[facility] AkknjjoTZANDQUZJWXI3606-70-23 08:36:003.4[facility] TNNXPBLBAPHA2799-88-45 08:36:35634Jgmieklq IszwbogTIEUNPCUYGJO1111-20-80 08:36:0011[facility] KjpnuztBPHNEHDIEMTY4849-65-28 08:36:0084[facility] [place] QDNMUAEYPDEX3348-49-38 08:36:001.0[facility] McudtflXTJDDBFPBX0224-11-41 08:36:00 0.1[facility] QvecgyuSCTHTELICV9359-80-70 08:36:000.2[facility] HermannHEMATOLOGY 2013-11-08 08:36:000.8[facility] WwarrufNRRQKTESTF5346-21-68 08:36:0072.5[facility] QscvottHSDURTOGXV5133-58-86 08:36:0017.0[facility] OzsbtbcRKTWAHMCRI4453-32-85 08:36:002.1[facility] RiejteyWWSKGOZULU0663-91-68 08:36:007.8[facility] FYYRWKIQPM2537-40-63 08:36:007.6[facility] HaruosxYVHFMNDKPZ3446-83-96 08:36:000.6 [facility] CbzhheuODKWXAKFJQ2155-45-21 08:36:001.8[facility] HermannHEMATOLOGY 2013-11-08 08:36:008.7[facility] YtprrawUWFAUKCSUC6710-47-87 08:36:0014.0[facility] ImwewotOONKYFHDZY6821-97-82 08:36:18198Bbagakkc TgbnbwhLGGRRSLEBP0289-43-93 08:36:0033.9[facility] RuxepcyPBIALGWVGU3902-26-73 08:36:004.65[facility] [place] DATCCLYRLP1515-51-56 08:36:0010.6[facility] QmjjqbjYDYCQDCXPZ6260-26-45 08:36:00 Test Item Value Reference Range Interpretation Comments MCH (test code = MCH) 29.3 pg 27.0-31.0 [facility] XcnynbsTALAELYGHB6535-68-50 08:36:0086.6[facility]annHEMATOLOGY 2013-11-08 08:36:0013.6[facility] YxoagvlAHOYHRPVZN6907-89-55 08:36:0040.2[facility]
[2021-03-18] MEDS ORDERED: IPRATROPIUM BROM 0.5MG/2.5ML ONE (19:55)
[2021-03-18] MEDS ORDERED: ALBUTEROL 2.5 MG/3 ML NEB SOL ONE (19:55)
[2021-03-18] MEDS ORDERED: METHYLPREDNISOLONE 125 MG INJ ONE (19:55)
[2021-03-18 20:13] LABS: ALT/SGPT 20 U/L (12-78); AST/SGOT 22 U/L (15-37); Albumin 4.1 g/dL (3.4-5.0); Alkaline Phosphatase 106 U/L (45-117); BUN Blood Urea Nitrogen 7 mg/dL (7-18); Bicarbonate 24 mmol/L (21-32); Bilirubin Direct 0.2 mg/dL (0-0.2); Bilirubin Total 0.4 mg/dL (0.2-1.0); Glucose Level 82 mg/dL (74-106); Magnesium 2.4 mg/dL (1.8-2.4); NT PRO-BNP 32 pg/mL (<125); Potassium 3.6 mmol/L (3.5-5.1); Sodium Level 143 mmol/L (136-145); Troponin (Emerg Dept Use Only) < 0.02 ng/mL (0.0-0.045)
[2021-03-18 20:17] LABS: Absolute Lymphocytes (CBC) 2.8 K/uL (0.7-4.9); Hematocrit 43.9 % (36.0-45.0); Lymphocytes % 45.2 % (15.3-44.8); MPV 8.3 fL (7.6-11.3); RBC Red Blood Cell Count 5.13 M/uL (3.86-4.86)
--- NOTE | 2021-03-18 20:36 | RAD REPORT ---
EXAM DESCRIPTION: RAD - Chest Single View - 03/18/2021 8:15 pm CLINICAL HISTORY: SOB COMPARISON: Chest Single View dated 01/21/2021; Chest Single View dated 01/06/2021; Chest Single View dated 12/15/2020; Chest Single View dated 08/20/2020 FINDINGS: No evidence of edema or pneumonia. The heart size is within normal limits.No acute osseous abnormality. No significant pleural effusions or pneumothorax. Atherosclerosis. IMPRESSION: No acute cardiopulmonary disease.
--- NOTE | 2021-03-18 22:02 | RAD REPORT ---
EXAM DESCRIPTION: CT - Head C Spine Cap Angelo Nair - 03/18/2021 9:42 pm CLINICAL HISTORY: Altered mental status, fall, pain all over COMPARISON: None. TECHNIQUE: Axial [address] head images were obtained. Axial [address] cervical spine images were obtaine d with sagittal and coronal reconstruction images reviewed. During dynamic enhancement of 100mL non-i onic contrast, axial 5 mm images of the chest, abdomen and pelvis were obtained. All CT scans are performed using dose optimization technique as appropriate and may include automated exposure control or mA/KV adjustment according to patient size. FINDINGS: No intracranial hemorrhage, mass or edema. No midline shift or abnormal fluid collection. Mastoid aircells and paranasal sinuses are clear. No skull fracture. Moderate chronic small vessel i schemic changes. Cerebral atrophy. No acute fracture or traumatic malalignment cervical spine. Multilevel cervical spondylosis with vary ing degrees of neural foraminal narrowing. CT chest shows no pneumothorax, pulmonary contusion or pleural fluid collection. No mediastinal hemat deny and the aorta and pulmonary arteries are unremarkable. No chest will mass or abnormal axillary fi nding. No displaced rib fracture or other significant bony finding. Multi-vessel coronary artery dis ease. CT abdomen and pelvis show no injury to solid abdominal viscera. Gallbladder and biliary tree are unr emarkable. No bowel injury or significant finding. No free air, free fluid or abnormal stranding. No urinary bladder abnormality. Heterogeneous appearance of the uterus with questionable fluid within th e endometrial canal. Calcifications may be from calcified uterine fibroids. Punctate stones the kidne y. No significant bony finding. Remote L2 compression fracture. L4 through S1 fusion. Osteopenia. IMPRESSION: 1. No acute intracranial abnormality. 2. No acute fracture traumatic malalignment cervical spine. 3. No evidence of significant trauma to the chest, abdomen, or pelvis. 4. Incidental findings as noted above.
--- NOTE | 2021-03-18 22:13 | ER ---
Nurse's Notes [facility] Name: Winsome Yepez Age: 70 yrs Sex: Female : 1950 Arrival Date: 03/18/2021 Time: 19:22 Bed 20 Private MD: Diagnosis: Fall on same level from slipping, tripping and stumbling without subsequent striking against object;COPD/ Chronic obstructive pulmonary disease with (acute) exacerbation;Pain in right hip;Dorsalgia, unspecified Presentation: 03/18 19:25 Chief complaint: EMS states: Fell 2x 2 hrs [employer], Reports back pain and R hip pain from ca1 the fall. Pt heavy on ETOH. Pt able to ambulate with assistance. Pt wheeled to restroom upon arrival to the ER. Pt almost fell and was rattled. Coronavirus screen: Client denies travel out of the [place] in the last 14 days. At this time, the client does not indicate any symptoms associated with coronavirus-19. Ebola Screen: Patient negative for fever greater than or equal to 101.5 degrees Fahrenheit, and additional compatible Ebola Virus Disease symptoms Patient denies exposure to infectious person. Patient denies travel to an Ebola-affected area in the 21 days before illness onset. No symptoms or risks identified at this time. Initial Sepsis Screen: Does the patient meet any 2 criteria? No. Patient's initial sepsis screen is negative. Does the patient have a suspected source of infection? No. Patient's initial sepsis screen is negative. Risk Assessment: Do you want to hurt yourself or someone else? Patient reports no desire to harm self or others. Onset of symptoms was March 18, 2021. 19:25 Method Of Arrival: EMS: [facility] ca1 19:25 Acuity: CYNTHIA 2 ca1 19:30 Chief complaint: Patient states: SOB just now. ca1 19:58 Care prior to arrival: None. Mechanism of Injury: Fall from standing position. Trauma ca1 event details: Injury occurred in the [facility], Injury occurred: at home. Injury occurred: March 18, 2021 Injury occurred at: 17:30. Triage Assessment: 19:29 General: Appears uncomfortable, slender, Behavior is drowsy. Respiratory: Airway is ca1 patent Respiratory effort is labored, Respiratory pattern is tachypnea. Trauma Activation: Not Applicable Physician: ED Physician; Name: ; Notified At: ; Arrived At: Physician: General Surgeon; Name: ; Notified At: ; Arrived At: Physician: Radiology; Name: ; Notified At: ; Arrived At: Physician: Respiratory; Name: ; Notified At: ; Arrived At: Physician: Lab; Name: ; Notified At: ; Arrived At: Historical: - Allergies: 20:02 PENICILLINS; ca1 - PMHx: 20:02 Asthma; High Cholesterol; Hypertension; Myocardial infarction; Sickle Cell; ca1 - Immunization history:: Adult Immunizations unknown. - Immunization history: Last tetanus immunization: unknown. - Social history:: Smoking status: Patient reports the use of cigarette tobacco products, smokes one-half pack cigarettes per day. Screenin:59 Abuse screen: Denies threats or abuse. Denies injuries from another. Tuberculosis ca1 screening: No symptoms or risk factors identified. 20:00 Nutritional screening: No deficits noted. Fall Risk Fall in past 12 months (25 points). ca1 Gait- Impaired (20 pts.). Mental Status- Overestimates/Forgets Limitations (15 pts.). Total Blake Fall Scale indicates High Risk Score (45 or more points). Fall prevention measures have been instituted. Side Rails Up X 2 As available patient and family educated on Fall Prevention Program and Strategies. Primary Survey: 19:59 NO uncontrolled hemorrhage observed. A: The patient needs verbal stimulation to ca1 respond. Breathing/Chest: Respiratory pattern: regular, tachypnea, Respiratory effort: spontaneous, labored. Circulation: Pulses: palpable bilateral radial, brachial, femoral, popliteal, posterior tibial and and dorsalis pedis arteries.. Disability Verbal Stimuli. Exposure/Environment: All clothing and personal items were removed. Forensic evidence collection is not deemed to be indicated at this time. Items placed in patient belonging bag. There is no evidence of uncontrolled external bleeding. No obvious injuries are noted at this time. A warming method has been applied: A warm blanket has been provided to the patient. Secondary Survey: 19:59 HEENT: No deficits noted. Gastrointestinal: No deficits noted. : No deficits noted. ca1 Musculoskeletal: No deficits noted. Assessment: 20:00 Reassessment:. General: Appears uncomfortable, Behavior is drowsy. General: Smells of ca1 alcohol. Pain: Complains of pain in face and right hip Pain currently is 6 out of 10 on a pain scale. Neuro: Level of Consciousness is lethargic, Oriented to person, place, time. Cardiovascular: Heart tones S1 S2 present Capillary refill < 3 seconds Patient's skin is warm and dry. Cardiovascular: Rhythm is sinus rhythm. Respiratory: Airway is patent Respiratory effort is even, unlabored, Respiratory pattern is regular, symmetrical, Breath sounds are diminished bilaterally. GI: Abdomen is flat, non-distended, Bowel sounds present X 4 quads. Abd is soft and non tender X 4 quads. : No signs and/or symptoms were reported regarding the genitourinary system. EENT: No signs and/or symptoms were reported regarding the EENT system. Derm: Skin is intact, is healthy with good turgor. Musculoskeletal: Circulation, motion, and sensation intact. Capillary refill < 3 seconds. 21:00 Reassessment: Patient appears in no apparent distress at this time. Patient and/or ld1 family updated on plan of care and expected duration. Pain level reassessed. 22:15 Reassessment: Patient appears in no apparent distress at this time. Pt agitated and ld1 uncooperative. Yelling in room. Took out IV. Demanding discharge. Altered mental status. SP02 100% RA. Notified ERP. Vital Signs: 19:25 BP 107 / 92; Pulse 84; Resp 18 S; Temp 97.8(TE); Pulse Ox 97% on R/A; ca1 21:00 BP 112 / 96; Pulse 78; Resp 18; Pulse Ox 100% on R/A; ld1 [place] Coma Score: 19:59 Eye Response: to voice(3). Verbal Response: oriented(5). Motor Response: obeys ca1 commands(6). Total: 14. Trauma Score (Adult): 19:59 Eye Response: to voice(0); Verbal Response: oriented(1); Motor Response: obeys ca1 commands(2); Systolic BP: > 89 mm Hg(4); Respiratory Rate: 10 to 29 per min(4); [place] Score: 14; Trauma Score: 11 ED Course: 19:22 Patient arrived in ED. ca1 19:25 Arm band placed on right wrist. ca1 19:28 Triage completed. ca1 19:37 Mark Campoverde PA is PHCP. cp 19:37 Julio Garcia MD is Attending Physician. cp 19:40 Initial lab(s) drawn, by me, sent to lab. Inserted saline lock: 20 gauge in right ca1 forearm, using aseptic technique. Blood collected. 19:48 Stacy Ayala, RN is Primary Nurse. ca1 19:59 Patient has correct armband on for positive identification. Placed in gown. Bed in low ca1 position. Call light in reach. Side rails up X2. 19:59 Oxygen administration via nasal cannula \T\ 2L/min Response to oxygen therapy: symptoms ca1 improved. 20:00 personnel monitor on. Pulse ox on. NIBP on. Warm blanket given. ca1 20:03 Thermoregulation: warm blanket given to patient. ca1 20:16 XRAY Chest (1 view) In Process Unspecified. EDMS 20:24 Report given to AZAM Felix. ca1 21:41 CT Traumagram (Head C Spine CAP W Con) In Process Unspecified. EDMS Administered Medications: 19:39 Drug: Albuterol - atroVENT (ipratropium) (3:1) (2.5 mg - 0.5 mg) 3 ml Route: Nebulizer; ca1 19:40 Drug: SOLU-Medrol (methylPrednisoLONE) 125 mg Route: IVP; Site: right forearm; ca1 Outcome: 22:12 Discharge ordered by . bindu 22:16 Patient left the ED. ld1 Signatures: Dispatcher [employer] EDMS Mark Campoverde PA PA cp Stacy Ayala, RN RN ca1 Elvira Rae RN RN ld1 Corrections: (The following items were deleted from the chart) 19:29 19:25 Acuity: CYNTHIA 3 ca1 ca1 21:10 19:48 CORONAVIRUS+MR.LAB.JOSÉ MIGUEL drawn and sent. ca1 EDMS
--- NOTE | 2021-03-18 22:13 | EDPHYS ---
Physician Documentation [facility] Name: Winsome Yepez Age: 70 yrs Sex: Female : 1950 Arrival Date: 03/18/2021 Time: 19:22 Bed 20 Private MD: ED Physician Julio Garcia HPI: 03/18 19:45 This 70 yrs old Black Female presents to ER via EMS with complaints of Fall Injury. cp 19:45 Details of fall: The patient fell from an upright position, while standing, while using cp walker, patient reports losing balance. 19:45 Onset: The symptoms/episode began/occurred just prior to arrival. Associated injuries: cp The patient sustained injury to the chest, specifically the right lateral posterior chest and right lateral anterior chest, pain with movement, tenderness, injury to the abdomen, specifically the posterior aspect of right lateral abdomen and anterior aspect of right lateral abdomen, tenderness, right hip, painful injury. While in waiting area, patient started having shortness of breath. Historical: - Allergies: 20:02 PENICILLINS; ca1 - PMHx: 20:02 Asthma; High Cholesterol; Hypertension; Myocardial infarction; Sickle Cell; ca1 - Immunization history:: Adult Immunizations unknown. - Immunization history: Last tetanus immunization: unknown. - Social history:: Smoking status: Patient reports the use of cigarette tobacco products, smokes one-half pack cigarettes per day. ROS: 19:50 Constitutional: Negative for body aches, chills, fever, poor PO intake. cp 19:50 Eyes: Negative for injury, pain, redness, and discharge. cp 19:50 ENT: Negative for ear pain, sore throat, difficulty swallowing, difficulty handling secretions. 19:50 Cardiovascular: Positive for chest pain, of the right lateral anterior chest and right lateral posterior chest, Negative for edema, palpitations. 19:50 Respiratory: Positive for shortness of breath, at rest. 19:50 Abdomen/GI: Positive for abdominal pain, of the posterior aspect of right lateral abdomen and anterior aspect of right lateral abdomen, Negative for nausea, vomiting, and diarrhea. 19:50 Back: Positive for pain at rest, pain with movement. 19:50 MS/extremity: Positive for pain, of the right hip. 19:50 Neuro: Negative for altered mental status, loss of consciousness, syncope, weakness. 19:50 All other systems are negative. Exam: 20:00 Constitutional: The patient appears alert, awake, non-diaphoretic, non-toxic, well cp developed, well nourished, in obvious distress, moderately distressed. 20:00 Head/Face: Normocephalic, atraumatic. cp 20:00 Eyes: Periorbital structures: appear normal, Pupils: equal, round, and reactive to light and accomodation, Extraocular movements: intact throughout, Conjunctiva: normal, no exudate, no injection, Sclera: no appreciated abnormality, Lids and lashes: appear normal, bilaterally. 20:00 ENT: External ear(s): are unremarkable, Ear canal(s): are normal, clear, TM's: bulging, is not appreciated, bilaterally, dullness, bilaterally, erythema, is not appreciated, bilaterally, Nose: is normal, Mouth: Lips: moist, Oral mucosa: moist, Posterior pharynx: Airway: no evidence of obstruction, patent. 20:00 Neck: C-spine: vertebral tenderness, that is mild, appreciated at C6 and C7, crepitus, is not appreciated, ROM/movement: is normal, is supple, no range of motions limitations, no nuchal rigidity. 20:00 Chest/axilla: Inspection: normal, Palpation: crepitus, is not appreciated, tenderness, that is mild, of the right lateral posterior chest and right lateral anterior chest. 20:00 Cardiovascular: Rate: normal, Rhythm: regular, Edema: is not appreciated, JVD: is not appreciated. 20:00 Respiratory: the patient does not display signs of respiratory distress, Respirations: normal, no use of accessory muscles, no retractions, labored breathing, is not present, Breath sounds: are clear throughout, no decreased breath sounds, no stridor, no wheezing. 20:00 Abdomen/GI: Inspection: abdomen appears normal, Bowel sounds: active, all quadrants, Palpation: soft, in all quadrants, mild abdominal tenderness, in the posterior aspect of right lateral abdomen and anterior aspect of right lateral abdomen, rebound tenderness, is not appreciated, involuntary guarding, is not appreciated. 20:00 Back: ROM is normal. 20:00 Skin: no rash present. 20:00 Neuro: Orientation: to person, place \T\ time. Mentation: is normal, Cerebellar function: is grossly normal, Motor: moves all fours, strength is normal, Sensation: is normal. 20:00 Musculoskeletal/extremity: Extremities: grossly normal except: noted in the right hip: cp pain, There is no evidence of decreased ROM, deformity. 20:37 ECG was reviewed by the Attending Physician. cp Vital Signs: 19:25 BP 107 / 92; Pulse 84; Resp 18 S; Temp 97.8(TE); Pulse Ox 97% on R/A; ca1 21:00 BP 112 / 96; Pulse 78; Resp 18; Pulse Ox 100% on R/A; ld1 Alhaji Coma Score: 19:59 Eye Response: to voice(3). Verbal Response: oriented(5). Motor Response: obeys ca1 commands(6). Total: 14. Trauma Score (Adult): 19:59 Eye Response: to voice(0); Verbal Response: oriented(1); Motor Response: obeys ca1 commands(2); Systolic BP: > 89 mm Hg(4); Respiratory Rate: 10 to 29 per min(4); [place] Score: 14; Trauma Score: 11 MDM: 19:40 Patient medically screened. cp 20:00 Differential diagnosis: closed head injury, fracture, multiple trauma. cp 22:11 Data reviewed: vital signs, nurses notes, lab test result(s), EKG, radiologic studies, cp CT scan, plain films. 22:11 Test interpretation: by ED physician or midlevel provider: ECG, plain radiologic cp studies. Counseling: I had a detailed discussion with the patient and/or guardian regarding: the historical points, exam findings, and any diagnostic results supporting the discharge/admit diagnosis, lab results, radiology results, to return to the emergency department if symptoms worsen or persist or if there are any questions or concerns that arise at home. Response to treatment: the patient's symptoms have markedly improved after treatment, and as a result, I will discharge patient. ED course: VSS. Oxygen sats 100% on RA. Patient appears with no signs of respiratory distress. Will discharge to home for continued monitoring. 03/18 19:38 Order name: Basic Metabolic Panel cp 03/18 19:38 Order name: CBC with Diff cp 03/18 19:38 Order name: LFT's cp 03/18 19:38 Order name: Magnesium; Complete Time: 20:24 cp 03/18 19:38 Order name: NT PRO-BNP; Complete Time: 20:24 cp 03/18 19:38 Order name: PT-INR; Complete Time: 20:24 cp 03/18 19:38 Order name: Troponin (emerg Dept Use Only); Complete Time: 20:24 cp 03/18 19:38 Order name: XRAY Chest (1 view); Complete Time: 20:41 cp 03/18 19:38 Order name: Basic Metabolic Panel; Complete Time: 20:24 EDMS 03/18 22:06 Interpretation: Normal except: CL 115. cp 03/18 19:38 Order name: CBC with Automated Diff; Complete Time: 20:24 EDMS 03/18 22:06 Interpretation: Normal except: RBC 5.13. cp 03/18 19:38 Order name: Liver (Hepatic) Function; Complete Time: 20:24 EDMS 03/18 22:06 Interpretation: Normal except: GLOB 3.9. cp 03/18 20:47 Order name: CT Traumagram (Head C Spine CAP W Con); Complete Time: 22:04 cp 03/18 22:07 Order name: SARS-COV-2 RT PCR EDMS 03/18 19:38 Order name: EKG; Complete Time: 19:38 cp 03/18 19:38 Order name: Cardiac monitoring; Complete Time: 20:37 cp 03/18 19:38 Order name: EKG - Nurse/Tech; Complete Time: 20:37 cp 03/18 19:38 Order name: IV Saline Lock; Complete Time: 19:48 cp 03/18 19:38 Order name: Labs collected and sent; Complete Time: 19:48 cp 03/18 19:38 Order name: O2 Per Protocol; Complete Time: 19:48 cp 03/18 19:38 Order name: O2 Sat Monitoring; Complete Time: 19:48 cp EC:37 Rate is 96 beats/min. Rhythm is regular. MT interval is normal. QRS interval is normal. cp QT interval is normal. Interpreted by me. Reviewed by me. Administered Medications: 19:39 Drug: Albuterol - atroVENT (ipratropium) (3:1) (2.5 mg - 0.5 mg) 3 ml Route: Nebulizer; ca1 19:40 Drug: SOLU-Medrol (methylPrednisoLONE) 125 mg Route: IVP; Site: right forearm; ca1 Disposition: 23:20 Co-signature as Attending Physician, Julio Garcia MD. rn Disposition Summary: 03/18/21 22:12 Discharge Ordered Location: Home cp Problem: new cp Symptoms: have improved cp Condition: Stable cp Diagnosis - Fall on same level from slipping, tripping and stumbling without subsequent cp striking against object - COPD/ Chronic obstructive pulmonary disease with (acute) exacerbation cp - Pain in right hip cp - Dorsalgia, unspecified cp Followup: cp - With: Private Physician - When: 1 - 2 days - Reason: Recheck today's complaints Discharge Instructions: - Discharge Summary Sheet cp - Acute Back Pain, Adult cp - Chronic Obstructive Pulmonary Disease Exacerbation cp - Fall Prevention in the Home, Adult cp - Hip Pain cp Forms: - Medication Reconciliation Form cp - Thank You Letter cp - Antibiotic Education cp - Prescription Opioid Use cp Prescriptions: - albuterol sulfate 90 mcg/actuation Inhalation HFA aerosol inhaler - inhale 2 puff by INHALATION route every 4-6 hours; 1 Inhaler; Refills: 0, cp Product Selection Permitted - Prednisone 20 mg Oral Tablet - take 2 tablets by ORAL route once daily for 5 days; 10 tablet; Refills: 0, cp Product Selection Permitted Signatures: Dispatcher [employer] EDMS Julio Garcia MD MD rn Mark Campoverde PA PA cp Stacy Ayala RN RN ca1 Corrections: (The following items were deleted from the chart) 21:10 19:39 CORONAVIRUS+BRZ ordered. EDMI EDMS
[2021-03-18 22:23] VITALS: TEMP 97.8
[2021-03-18 22:24] VITALS: BP 112/96; O2SAT 100
--- NOTE | 2021-03-19 11:00 | EKG ---
Test Date: 2021-03-18 Test Time: 20:33:28 Industrial Cook: FELIX MEASUREMENT RESULTS: Intervals: Rate: 96 NJ: 156 QRSD: 84 QT: 360 QTc: 454 Trade: P: 71 NJ: 156 QRS: 34 T: 59 INTERPRETIVE STATEMENTS: Normal sinus rhythm Normal ECG Compared to ECG 01/21/2021 16:20:31 Atrial premature complex(es) no longer present Electronically Signed On 03-19-21 10:58:26 CDT by Clint Norris
== END 2021-03-18 22:16 | disposition home or self-care (01) ==
LOC: ER 19:20
DX: M54.9 Dorsalgia, unspecified (principal); J44.1 Chronic obstructive pulmonary disease with (acute) exacerbation; W01.0XXA Fall on same level from slipping, tripping and stumbling without subsequent striking against object, initial encounter; F17.210 Nicotine dependence, cigarettes, uncomplicated; I10 Essential (primary) hypertension; Z88.0 Allergy status to penicillin; Z20.822 Contact with and (suspected) exposure to COVID-19
CPT/HCPCS: 93005; 85025; 80048; 36415; 83735; 85610; 80076; 84484; 83880; 70450; 72125; 71260; 74177; 71045; 96374; 99285; U0003; Q9967; J2930

== ENCOUNTER 2021-04-07 12:57 | Emergency (ER) | payer OTHER ==
--- OUTSIDE RECORDS SUMMARY | 2021-04-07 13:16 | XMS REPORT | Continuity of Care Document ---
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 BD Normal No Notes: Memori a Saline 6-30 (Same as: l Flush 02:00: BD Posiflush) potassium No Notes: Memori a chloride 6-30 Infuse at l 02:00: a rate of 10 mEq/hr. (Same as: KCL) metoprolol No Notes: Memor ia tartrate 6-30 (Same as: l 02:00: Lopressor) cyclobenzap No Notes: Eleazar hilton rine 6-30 (Same As: l 01:53: Flexeril) Morphine No Notes: Memoria 6-29 (Same l 22:20: as:MORPhin e Sulfate) Ondansetron [...] l 02:00: Pravachol) Protonix No Notes: Memoria 02-17 Tablet l 22:30: should not be chewed [...] 12.5 mg = Me moria tartrate 25 02-17 0.5 tab, l mg oral 20:24: PO, BID, 0 Herm sho tablet 00 Refill(s) naproxen No 500 mg = 1 Mem oria 500 mg oral 6-22 tab, PO, l tablet 20:24: BID, PRN [place] 00 Pain, # 30 tab, 0 Refill(s) [...] PO, l oral tablet 20:24: Bedtime, # [place] 00 30 tab, 0 Refill(s) omeprazole Yes 20 mg = 1 Me moria 20 mg oral 6-22 tab, PO, l enteric 17:29: BID, # 30 Caroline nn coated 00 tab, 0 tablet Refill(s) 24 HR Yes = 1 patch, Memori a Nicotine - TOP, l 0.875 MG/HR 17:00: Daily, X He rmann Transdermal 00 14 day, # Patch 14 patch, [Nicoderm 0 C-Q] Refill(s) atorvastati Yes 40 mg = 2 M emoria n 20 mg 6-22 tab, PO, l oral tablet 17:00: Bedtime, # [place] 00 60 tab, 0 Refill(s) Nicotine No Notes: Memoria 6-22 (Same as: l 14:00: Habitrol) [place] 00 "Remove old patch before applicatio n of new patch" Aspirin 81 No Notes: Do Me moria MG Enteric 6-22 not crush l Coated 14:00: or chew. [place] Tablet 00 (Same As: Ecotrin) Sodium No 1,000 mL, Memori a Chloride -22 Rate: 125 l 0.154 13:38: ml/hr, Maciej MEQ/ML 00 Infuse Injectable over: 8 Solution hr, Route: IV, Dosing Weight 51.051 kg, Total Volume: 1,000, Start date: 02/17/15 8:38:00, Duration: 30 day, Stop date: 03/19/15 8:37:00 Aspirin 81 No 81 mg = 1 Me moria MG Enteric -22 tab, PO, l Coated 02:37: Daily, # [...] a 02-17 (Same As: l 02:08: Dulcolax, [place] 00 Bisco-Lax) Ondansetron No Notes: Eleazar hilton [...] / 02-17 (Same as: l Hydrocodone 02:06: [place] Caroline nn Bitartrate 00 325/5) Do 5 MG Oral not exceed Tablet 4gm/day of acetaminop hen. Morphine No Notes: Memoria 02-17 (Same l 02:06: as:MORPhin [place] 00 e Sulfate) Sodium No 1,000 mL, Memori a Chloride 02-17 Rate: 125 l 0.154 02:06: ml/hr, Maciej MEQ/ML 00 Infuse Injectable over: [...] Notes: Memoria 02-17 (Same l 00:28: as:MORPhin [place] 00 e Sulfate) Nitroglycer No Notes: Eleazar hilton in 02-17 (Same l 00:28: as:Nitroqu [place] 00 ick, Nitrostat) "Do Not Crush" Sublingual tablet Aspirin No Notes: (Do Eleazar hilton 02-16 Not Crush) l 22:49: Do not Maciej 00 crush or chew. Ondansetron No Notes: Eleazar hilton 12-22 (Same as: l 21:22: Zofran) [place] 00 Morphine No Notes: Memoria 12-22 (Same l 21:22: as:MORPhin [place] 00 e Sulfate) Aspirin / No Notes: Memori a Calcium 12-22 Take with l Carbonate 21:22: food. Maciej 00 Aspirin 81 Yes 81 mg = 1 Me moria MG Enteric 4-21 tab, PO, l Coated 20:08: Daily, # [place] Tablet 00 90 tab, 0 Refill(s) metoprolol Yes 12.5 mg = Me moria tartrate 25 4-21 0.5 tab, l mg oral 20:08: PO, BID, # Herm sho tablet 00 90 tab, 0 Refill(s) clopidogrel Yes 75 mg = 1 M emoria 75 mg oral 4-21 tab, PO, l tablet 20:08: Daily, # Macije 00 90 tab, 0 Refill(s) atorvastati Yes 20 mg = 1 M emoria n 20 mg 4-21 tab, PO, l oral tablet 20:08: Bedtime, # Maciej 00 90 tab, 0 Refill(s) metoprolol No Notes: Memor ia tartrate -21 (Same as: l 14:00: Lopressor) [place] 00 12.5mg=1/ 4 X 50 mg tab. Lovenox No Notes: Memoria 21 (Same as: l 14:00: Lovenox) [place] 00 clopidogrel No Notes: Eleazar hilton 4-21 (Same As: l 14:00: Plavix) [place] 00 Aspirin / No Notes: Do Mem oria Calcium - not crush l Carbonate 14:00: or chew. Herm sho (Same As: Ecotrin) Saline No Notes: Memoria Flush 0.9% 12-17 (Same as: l 14:00: BD [place] 00 Posiflush) Adenosine No 41.6178 Memor ia 4-21 mg, Route: l 03:42: IVP, ONCE, Dosing Weight 49.545, kg, Priority: Routine, Start date: 12/16/13 22:42:00, Stop date: 12/16/13 22:42:00 atorvastati No Notes: Eleazar hilton n - (Same As: l 03:28: Lipitor) Maciej Saline No Notes: [facility]oria Flush 0.9% 12-17 (Same as: l 03:25: BD [place] Posiflush) Nitroglycer No Notes: Eleazar hilton in 12-17 (Same l 03:25: as:Nitroqu [place] 00 ick, Nitrostat) "Do Not Crush" Sublingual tablet atorvastati No 20 mg = 1 M emoria n 20 mg 4-21 tab, PO, l oral tablet 01:48: Bedtime, # Mac[place] 00 30 tab, 0 Refill(s) clopidogrel No 75 mg = 1 M emoria 75 mg oral 4-21 tab, PO, l tablet 01:48: Daily, 0 [place] 00 Refill(s) Metoprolol No 12.5 mg = Me moria Tartrate 25 4-21 0.5 tab, l mg oral 01:47: PO, BID, 0 Herm sho tablet 00 Refill(s) Aspirin Low No = 1 tab, Me moria Dose 81 mg 4-21 PO, Daily, l oral tablet 01:46: 0 Kristopher n 00 Refill(s) Sodium No 1,000 mL, Memori a Chloride 4-20 1,000 l 0.154 23:43: ml/hr, [place] MEQ/ML 00 Infuse Injectable Over: 1 Solution hr, Route: IV, 1,000, Drug form: INJ, ONCE, Priority: STAT, Dosing Weight 48.636 kg, Start date: 12/16/13 18:43:00, Duration: 1 doses or times, Stop date: 12/16/13 18:43:00 Iohexol No Special Memoria 4-20 Instructio l 21:17: ns: Dose = Maciej 00 2.2ml/kg, Max dose = 100ml -- "To be infused by Radiology Staff ONLY" Sodium 2013- No 1,000 mL, Memori a Chloride 4-20 1,000 l 0.154 19:43: ml/hr, Maciej MEQ/ML 00 Infuse Injectable Over: 1 Solution hr, Route: IV, 1,000, Drug form: INJ, ONCE, Priority: STAT, Dosing Weight 48.636 kg, Start date: 12/16/13 14:43:00, Duration: 1 doses or times, Stop date: 12/16/13 14:43:00 Sodium 2013- No 1,000 mL, Memori a Chloride 4-20 [...] tab, PO, l Tablet 20:52: Daily, # [place] [Plavix] 00 30 tab, 0 Refill(s) atorvastati Yes 20 mg = 1 M emoria n 20 mg 3-13 tab, PO, l oral tablet 20:52: Bedtime, # [place] 00 30 tab, 0 Refill(s) Aspirin 81 Yes 81 mg = 1 Me moria MG Chewable 3-13 tab, PO, l Tablet 20:52: Daily, # [place] 00 60 tab, 0 Refill(s) Plavix No 75 mg, 1 Memoria 3-13 tab, l 14:00: Route: PO, [place] 00 Drug form: TAB, Daily, Dosing Weight 63.636, kg, Start date: 11/08/13 9:00:00, Duration: 30 day, Stop date: 12/07/13 9:00:00( me As: Plavix) Saline No 5 ml, Memoria Flush 0.9% 11-08 Route: l 14:00: MISC, Drug Form: INJ, Dosing Weight 63.636, kg, Q12H, Start date: 11/08/13 9:00:00, Duration: 30 day, Stop date: 12/07/13 21:00:00(S nino as: BD Posiflush) Lovenox No 40 mg, 0.4 Eleazar hilton 3-13 mL, Route: l 14:00: SUB-Q, Drug form: INJ, Q24H, Dosing Weight 63.636, kg, Start date: 11/08/13 9:00:00, Duration: 30 day, Stop date: 12/07/13 9:00:00([facility] as: Lovenox) Tylenol No 650 mg, 2 Memor ia 3-13 tab, l 13:15: Route: PO, [place] 00 Drug form: TAB, Q4H, Dosing Weight [...] 7:06:00, Duration: 30 day, Stop date: 12/08/13 7:05:00([facility] as: BD Posiflush) Nitroglycer No 0.4 mg, 1 M emoria in 11-08 tab, l 12:06: Route: SL, Maciej 00 Drug form: TAB, Q5Min, Dosing Weight 63.636, kg, PRN Chest Pain, Start date: 11/08/13 7:06:00, Duration: 30 day, Stop date: 12/08/13 7:01:00([facility] as:Nitroqu ick, Nitrostat) "Do Not Crush" Sublingual tablet Aspirin 81 No 324 mg, Eleazar hilton MG Chewable 11-08 Route: PO, l Tablet 10:15: Drug form: Caroline nn 00 CHEWTAB, ONCE, Dosing Weight 63.636, kg, Priority: STAT, Start date: 11/08/13 5:15:00, Stop date: 11/08/13 5:15:00 Immunizations Ordered Immunization Filled Immunization Date Status Commen ts Source Name Name pneumococcal 2012-02-17 Completed [facility] 23-valent vaccine 20:57:00 Maciej Vital Signs Vital Name Observation Time Observation Value Comments Source Systolic (mm Hg) 2017-01-19 23:16:00 Eleazar rial [place] Diastolic (mm Hg) 2017-01-19 23:16:00 Mem orial [place] Respitory Rate 2017-01-19 23:16:00 Memori al [place] Systolic (mm Hg) 2017-01-19 22:28:00 Eleazar rial [place] Diastolic (mm Hg) 2017-01-19 22:28:00 Mem orial [place] Respitory Rate 2017-01-19 22:28:00 Memori al [place] Respitory Rate 2017-01-19 21:00:00 Memori al [place] Systolic (mm Hg) 2017-01-19 20:00:00 Eleazar rial [place] Diastolic (mm Hg) 2017-01-19 20:00:00 Mem orial [place] Weight 2017-01-19 17:23:00 [facility] [place] BMI Calculated 2017-01-19 17:23:00 Memori al [place] Height 2017-01-19 17:23:00 152.4 cm [facility] [place] Temperature Oral (F) 2017-01-19 17:23:00 97.0 F [facility] [place] Heart Rate 2017-01-19 17:23:00 [facility] [place] Systolic (mm Hg) 2017-01-17 02:10:00 Eleazar rial [place] Diastolic (mm Hg) 2017-01-17 02:10:00 Mem orial [place] Respitory Rate 2017-01-17 02:10:00 Memori al [place] Systolic (mm Hg) 2017-01-17 01:21:00 Eleazar rial [place] Diastolic (mm Hg) 2017-01-17 01:21:00 Mem orial [place] Respitory Rate 2017-01-17 01:21:00 Memori al [place] Temperature Oral (F) 2017-01-17 01:21:00 98.1 F [facility] [place] Systolic (mm Hg) 2017-01-17 00:28:00 Eleazar rial [place] Diastolic (mm Hg) 2017-01-17 00:28:00 Mem orial [place] Respitory Rate 2017-01-17 00:28:00 Memori al [place] Heart Rate 2017-01-16 23:24:00 [facility] [place] Temperature Oral (F) 2017-01-16 23:24:00 98 F [facility] [place] Weight 2017-01-16 23:24:00 [facility] [place] Heart Rate 2016-11-29 03:44:00 [facility] [place] Systolic (mm Hg) 2016-11-29 03:44:00 Eleazar rial [place] Diastolic (mm Hg) 2016-11-29 03:44:00 Mem orial [place] Respitory Rate 2016-11-29 03:44:00 Memori al [place] Temperature Oral (F) 2016-11-29 03:44:00 98.7 F [facility] [place] Heart Rate 2016-11-29 03:24:00 [facility] [place] Respitory Rate 2016-11-29 03:24:00 Memori al [place] Systolic (mm Hg) 2016-11-29 03:24:00 Eleazar rial [place] Diastolic (mm Hg) 2016-11-29 03:24:00 Mem orial [place] Heart Rate 2016-11-29 02:51:00 [facility] [place] Respitory Rate 2016-11-29 02:51:00 Memori al [place] Systolic (mm Hg) 2016-11-29 02:51:00 Eleazar rial [place] Diastolic (mm Hg) 2016-11-29 02:51:00 Mem orial [place] Weight 2016-11-29 00:21:00 [facility] [place] BMI Calculated 2016-11-29 00:21:00 Memori al [place] Height 2016-11-29 00:21:00 152.4 cm [facility] [place] Temperature Oral (F) 2016-11-29 00:21:00 98.6 F [facility] [place] Respitory Rate 2016-11-07 02:47:00 Memori al [place] Heart Rate 2016-11-07 02:47:00 [facility] [place] Temperature Oral (F) 2016-11-07 02:47:00 98.2 F [facility] [place] Systolic (mm Hg) 2016-11-07 02:47:00 Eleazar rial [place] Diastolic (mm Hg) 2016-11-07 02:47:00 Mem orial [place] Heart Rate 2016-11-07 02:22:00 [facility] [place] Respitory Rate 2016-11-07 02:22:00 Memori al [place] Systolic (mm Hg) 2016-11-07 02:22:00 Eleazar rial [place] Diastolic (mm Hg) 2016-11-07 02:22:00 Mem orial [place] Weight 2016-11-06 23:37:00 [facility] [place] Heart Rate 2016-11-06 23:37:00 [facility] [place] Temperature Oral (F) 2016-11-06 23:37:00 98.3 F [facility] [place] Respitory Rate 2016-11-06 23:37:00 Memori al [place] Systolic (mm Hg) 2016-11-06 23:37:00 Eleazar rial [place] Diastolic (mm Hg) 2016-11-06 23:37:00 Mem orial [place] Respitory Rate 2016-10-11 18:24:00 Memori al [place] Temperature Oral (F) 2016-10-11 18:24:00 97.9 F [facility] [place] Systolic (mm Hg) 2016-10-11 18:24:00 Eleazar rial [place] Diastolic (mm Hg) 2016-10-11 18:24:00 Mem orial [place] Heart Rate 2016-10-11 18:24:00 [facility] [place] Heart Rate 2016-10-11 13:53:00 [facility] [place] Systolic (mm Hg) 2016-10-11 13:53:00 Eleazar rial [place] Diastolic (mm Hg) 2016-10-11 13:53:00 Mem orial [place] Temperature Oral (F) 2016-10-11 13:53:00 98.1 F [facility] [place] Temperature Oral (F) 2016-10-11 10:16:00 99.0 F [facility] [place] Respitory Rate 2016-10-11 10:16:00 Memori al [place] Heart Rate 2016-10-11 10:16:00 [facility] [place] Systolic (mm Hg) 2016-10-11 10:16:00 Eleazar rial [place] Diastolic (mm Hg) 2016-10-11 10:16:00 Mem orial [place] Weight 2016-10-11 06:46:00 [facility] [place] BMI Calculated 2016-10-11 06:46:00 Memori al [place] Height 2016-10-11 06:46:00 152.4 cm [facility] [place] Respitory Rate 2016-10-11 06:39:00 Memori al [place] Height 2016-10-10 17:48:00 152.4 cm [facility] [place] BMI Calculated 2016-10-10 17:48:00 Memori al [place] Weight 2016-10-10 17:48:00 [facility] [place] BMI Calculated 2016-09-15 04:26:00 Memori al [place] Weight 2016-09-15 04:26:00 [facility] [place] Height 2016-09-15 04:26:00 152.4 cm [facility] [place] Systolic (mm Hg) 2016-09-15 04:26:00 Eleazar rial [place] Diastolic (mm Hg) 2016-09-15 04:26:00 Mem orial [place] Respitory Rate 2016-09-15 04:26:00 Memori al [place] Heart Rate 2016-09-15 04:26:00 [facility] [place] Temperature Oral (F) 2016-09-15 04:26:00 98.5 F [facility] [place] Respitory Rate 2016-04-14 06:22:00 Memori al [place] Temperature Oral (F) 2016-04-14 06:22:00 98.7 F [facility] [place] Systolic (mm Hg) 2016-04-14 06:22:00 Eleazar rial [place] Diastolic (mm Hg) 2016-04-14 06:22:00 Mem orial [place] Heart Rate 2016-04-14 06:22:00 [facility] [place] BMI Calculated 2016-04-14 02:12:00 Memori al [place] Weight 2016-04-14 02:12:00 [facility] [place] Temperature Oral (F) 2016-04-14 02:12:00 99.2 F [facility] [place] Height 2016-04-14 02:12:00 152.4 cm [facility] [place] Respitory Rate 2016-04-14 02:12:00 Memori al [place] Systolic (mm Hg) 2016-04-14 02:12:00 Eleazar rial [place] Diastolic (mm Hg) 2016-04-14 02:12:00 Mem orial [place] Heart Rate 2016-04-14 02:12:00 [facility] [place] Temperature Oral (F) 2016-03-12 17:00:00 97.8 F [facility] [place] Heart Rate 2016-03-12 17:00:00 [facility] [place] Respitory Rate 2016-03-12 17:00:00 Memori al [place] Systolic (mm Hg) 2016-03-12 17:00:00 Eleazar rial [place] Diastolic (mm Hg) 2016-03-12 17:00:00 Mem orial [place] Respitory Rate 2016-03-12 12:54:00 Memori al [place] Systolic (mm Hg) 2016-03-12 12:30:00 Eleazar rial [place] Diastolic (mm Hg) 2016-03-12 12:30:00 Mem orial [place] Respitory Rate 2016-03-12 12:30:00 Memori al [place] Heart Rate 2016-03-12 12:30:00 [facility] [place] Temperature Oral (F) 2016-03-12 12:30:00 98.2 F [facility] [place] Temperature Oral (F) 2016-03-12 10:26:00 98.0 F [facility] [place] Heart Rate 2016-03-12 10:26:00 [facility] [place] Systolic (mm Hg) 2016-03-12 10:26:00 Eleazar rial [place] Diastolic (mm Hg) 2016-03-12 10:26:00 Mem orial [place] Height 2016-03-11 19:45:00 152.4 cm [facility] [place] BMI Calculated 2016-03-11 19:45:00 Memori al [place] Weight 2016-03-11 19:45:00 [facility] [place] Respitory Rate 2016-03-06 01:44:00 Memori al [place] Systolic (mm Hg) 2016-03-06 01:44:00 Eleazar rial [place] Diastolic (mm Hg) 2016-03-06 01:44:00 Mem orial [place] Heart Rate 2016-03-06 01:44:00 [facility] [place] Temperature Oral (F) 2016-03-06 01:44:00 98.1 F [facility] [place] BMI Calculated 2016-03-05 21:55:00 Memori al [place] Weight 2016-03-05 21:55:00 [facility] [place] Systolic (mm Hg) 2016-03-05 21:55:00 Eleazar rial [place] Diastolic (mm Hg) 2016-03-05 21:55:00 Mem orial [place] Heart Rate 2016-03-05 21:55:00 [facility] [place] Height 2016-03-05 21:55:00 152.4 cm [facility] [place] Temperature Oral (F) 2016-03-05 21:55:00 98.3 F [facility] [place] Respitory Rate 2016-03-05 21:55:00 Memori al [place] Respitory Rate 2016-03-01 01:23:00 Memori al [place] Systolic (mm Hg) 2016-03-01 01:23:00 Eleazar rial [place] Diastolic (mm Hg) 2016-03-01 01:23:00 Mem orial [place] Temperature Oral (F) 2016-03-01 01:23:00 98.2 F [facility] [place] Heart Rate 2016-03-01 01:23:00 [facility] [place] Respitory Rate 2016-02-29 23:25:00 Memori al [place] Temperature Oral (F) 2016-02-29 22:27:00 98.3 F [facility] [place] Heart Rate 2016-02-29 22:27:00 [facility] [place] Respitory Rate 2016-02-29 22:27:00 Memori al [place] Systolic (mm Hg) 2016-02-29 22:27:00 Eleazar rial [place] Diastolic (mm Hg) 2016-02-29 22:27:00 Mem orial [place] Respitory Rate 2015-09-05 14:47:00 Memori al [place] Systolic (mm Hg) 2015-09-05 14:47:00 Eleazar rial [place] Diastolic (mm Hg) 2015-09-05 14:47:00 Mem orial [place] Heart Rate 2015-09-05 14:47:00 [facility] [place] Weight 2015-09-05 11:00:00 [facility] [place] Systolic (mm Hg) 2015-09-05 10:00:00 Eleazar rial [place] Diastolic (mm Hg) 2015-09-05 10:00:00 Mem orial [place] Respitory Rate 2015-09-05 10:00:00 Memori al [place] Heart Rate 2015-09-05 10:00:00 [facility] [place] Respitory Rate 2015-09-05 06:00:00 Mem[facility] al [place] Systolic (mm Hg) 2015-09-05 06:00:00 Eleazar rial [place] Diastolic (mm Hg) 2015-09-05 06:00:00 Mem orial [place] Heart Rate 2015-09-05 06:00:00 [facility] [place] Weight 2015-09-04 11:00:00 [facility] [place] Weight 2015-09-04 09:15:00 [facility] [place] BMI Calculated 2015-09-04 09:15:00 Memori al [place] Height 2015-09-04 09:15:00 160.02 cm [facility] [place] Temperature Oral (F) 2015-09-04 09:06:00 98.3 F [facility] [place] Height 2015-09-04 03:35:00 152.4 cm [facility] [place] BMI Calculated 2015-09-04 03:35:00 Memori al [place] Temperature Oral (F) 2015-09-04 03:35:00 98.7 F [facility] [place] Systolic (mm Hg) 2015-07-16 13:56:00 Eleazar rial [place] Diastolic (mm Hg) 2015-07-16 13:56:00 Mem orial [place] Respitory Rate 2015-07-16 13:56:00 Memori al [place] Heart Rate 2015-07-16 13:56:00 [facility] [place] Temperature Oral (F) 2015-07-16 13:56:00 98.0 F [facility] [place] Systolic (mm Hg) 2015-07-16 13:55:00 Eleazar rial [place] Diastolic (mm Hg) 2015-07-16 13:55:00 Mem orial [place] Respitory Rate 2015-07-16 13:55:00 Memori al [place] Heart Rate 2015-07-16 13:55:00 [facility] [place] Temperature Oral (F) 2015-07-16 13:55:00 97.4 F [facility] [place] Systolic (mm Hg) 2015-07-16 10:00:00 Eleazar rial [place] Diastolic (mm Hg) 2015-07-16 10:00:00 Mem orial [place] Respitory Rate 2015-07-16 10:00:00 [facility] al [place] Heart Rate 2015-07-16 10:00:00 [facility] [place] Temperature Oral (F) 2015-07-16 10:00:00 97.9 F [facility] [place] Height 2015-07-16 01:30:00 152.4 cm [facility] [place] Weight 2015-07-16 01:30:00 [facility] [place] BMI Calculated 2015-07-16 01:30:00 Memori al [place] Height 2015-07-15 18:10:00 152.4 cm [facility] [place] BMI Calculated 2015-07-15 18:10:00 Mem[facility] al [place] Weight 2015-07-15 18:10:00 [facility] [place] Weight 2015-07-05 04:10:00 [facility] [place] Height 2015-07-05 04:10:00 152.4 cm [facility] [place] BMI Calculated 2015-07-05 04:10:00 [facility] al [place] Temperature Oral (F) 2015-07-05 04:10:00 98.3 F [facility] [place] Respitory Rate 2015-07-05 04:10:00 [facility] [place] Heart Rate 2015-07-05 04:10:00 [facility] [place] Systolic (mm Hg) 2015-07-05 04:10:00 Eleazar rial [place] Diastolic (mm Hg) 2015-07-05 04:10:00 Mem o[facility] [place] BMI Calculated 2015-07-04 18:05:00 [facility] al [place] Weight 2015-07-04 18:05:00 [facility] [place] Height 2015-07-04 18:05:00 152.4 cm [facility] [place] Temperature Oral (F) 2015-07-04 18:05:00 97.9 F [facility] [place] Respitory Rate 2015-07-04 18:05:00 [facility] al [place] Heart Rate 2015-07-04 18:05:00 [facility] [place] Systolic (mm Hg) 2015-07-04 18:05:00 Eleazar rial [place] Diastolic (mm Hg) 2015-07-04 18:05:00 [facility] [place] BMI Calculated 2015-06-04 04:13:00 [facility] [place] Weight 2015-06-04 04:13:00 [facility] [place] Height 2015-06-04 04:13:00 152.4 cm [facility] [place] Temperature Oral (F) 2015-06-04 04:13:00 98.8 F [facility] [place] Respitory Rate 2015-06-04 04:13:00 [facility] [place] Heart Rate 2015-06-04 04:13:00 [facility] [place] Systolic (mm Hg) 2015-06-04 04:13:00 Eleazar rial [place] Diastolic (mm Hg) 2015-06-04 04:13:00 Mem orial [place] Systolic (mm Hg) 2015-05-18 22:47:00 Eleazar rial [place] Diastolic (mm Hg) 2015-05-18 22:47:00 Mem o[facility] [place] Temperature Oral (F) 2015-05-18 22:47:00 96.6 F [facility] [place] Heart Rate 2015-05-18 22:47:00 [facility] [place] Respitory Rate 2015-05-18 22:47:00 [facility] al [place] Systolic (mm Hg) 2015-05-18 22:30:00 Eleazar rial [place] Diastolic (mm Hg) 2015-05-18 22:30:00 Mem orial [place] Systolic (mm Hg) 2015-05-18 21:00:00 Eleazar rial [place] Diastolic (mm Hg) 2015-05-18 21:00:00 Mem orial [place] Temperature Oral (F) 2015-05-18 21:00:00 98.1 F [facility] [place] Respitory Rate 2015-05-18 21:00:00 [facility] [place] Temperature Oral (F) 2015-05-18 19:21:00 98.2 F [facility] [place] Heart Rate 2015-05-18 19:21:00 [facility] [place] Respitory Rate 2015-05-18 19:21:00 Mem[facility] al [place] Heart Rate 2015-05-18 17:10:00 [facility] [place] Respitory Rate 2015-05-09 20:00:00 [facility] al [place] Systolic (mm Hg) 2015-05-09 20:00:00 Eleazar rial [place] Diastolic (mm Hg) 2015-05-09 20:00:00 [facility] [place] Temperature Oral (F) 2015-05-09 20:00:00 97.5 F [facility] [place] Temperature Oral (F) 2015-05-09 19:10:00 97.5 F [facility] [place] Systolic (mm Hg) 2015-05-09 19:10:00 Eleazar rial [place] Diastolic (mm Hg) 2015-05-09 19:10:00 [facility] [place] Respitory Rate 2015-05-09 19:10:00 [facility] [place] Systolic (mm Hg) 2015-05-09 18:41:00 Eleazar rial [place] Diastolic (mm Hg) 2015-05-09 18:41:00 [facility] [place] Weight 2015-05-09 17:37:00 [facility] [place] BMI Calculated 2015-05-09 17:37:00 [facility] al [place] Height 2015-05-09 17:37:00 152.4 cm [facility] [place] Temperature Oral (F) 2015-05-09 17:37:00 98.9 F [facility] [place] Respitory Rate 2015-05-09 17:37:00 [facility] [place] Heart Rate 2015-05-09 17:37:00 [facility] [place] Systolic (mm Hg) 2015-05-03 00:04:00 Eleazar rial [place] Diastolic (mm Hg) 2015-05-03 00:04:00 [facility] Heart Rate 2015-05-03 00:04:00 [facility] Respitory Rate 2015-05-03 00:04:00 [facility] Temperature Oral (F) 2015-05-03 00:04:00 98.5 F [facility] Heart Rate 2015-05-02 21:17:00 [facility] Respitory Rate 2015-05-02 21:17:00 [facility] Systolic (mm Hg) 2015-05-02 21:17:00 [facility] Diastolic (mm Hg) 2015-05-02 21:17:00 [facility] Heart Rate 2015-05-02 20:24:00 [facility] Temperature Oral (F) 2015-05-02 20:24:00 98.1 F [facility] Systolic (mm Hg) 2015-05-02 20:24:00 [facility] Diastolic (mm Hg) 2015-05-02 20:24:00 [facility] Respitory Rate 2015-05-02 20:24:00 [facility] Temperature Oral (F) 2015-05-02 18:35:00 98.9 F [facility] Systolic (mm Hg) 2015-04-11 19:45:00 [facility] Diastolic (mm Hg) 2015-04-11 19:45:00 [facility] Temperature Oral (F) 2015-04-11 19:45:00 98.7 F [facility] Respitory Rate 2015-04-11 19:45:00 [facility] Heart Rate 2015-04-11 19:45:00 [facility] Weight 2015-04-11 16:35:00 [facility] Temperature Oral (F) 2015-04-11 16:35:00 98.4 F [facility] Systolic (mm Hg) 2015-04-11 16:35:00 Eleazar rial Maciej Diastolic (mm Hg) 2015-04-11 16:35:00 [facility] Respitory Rate 2015-04-11 16:35:00 [facility] [place] Heart Rate 2015-04-11 16:35:00 [facility] [place] Systolic (mm Hg) 2015-03-30 22:06:00 Eleazar rial [facility]iej Diastolic (mm Hg) 2015-03-30 22:06:00 [facility] [place] Temperature Oral (F) 2015-03-30 22:06:00 97.9 F [facility] [place] Heart Rate 2015-03-30 22:06:00 [facility] [place] Respitory Rate 2015-03-30 22:06:00 [facility] [place] BMI Calculated 2015-03-30 19:44:00 [facility] Height 2015-03-30 19:44:00 152.4 cm [facility] [place] Systolic (mm Hg) 2015-03-30 19:44:00 Eleazar rial [place] Diastolic (mm Hg) 2015-03-30 19:44:00 [facility] Respitory Rate 2015-03-30 19:44:00 [facility] [place] Heart Rate 2015-03-30 19:44:00 [facility] Weight 2015-03-30 19:44:00 [facility] [place] Temperature Oral (F) 2015-03-30 19:44:00 97.9 F [facility] [place] Respitory Rate 2015-03-24 21:57:00 [facility] [place] Temperature Oral (F) 2015-03-24 21:57:00 97.9 F [facility] Heart Rate 2015-03-24 21:57:00 [facility] [place] Systolic (mm Hg) 2015-03-24 21:57:00 Eleazar rial [place] Diastolic (mm Hg) 2015-03-24 21:57:00 [facility] [place] Heart Rate 2015-03-24 17:28:00 [facility] [place] Temperature Oral (F) 2015-03-24 17:28:00 98.8 F [facility] Respitory Rate 2015-03-24 17:28:00 [facility] [place] Systolic (mm Hg) 2015-03-24 17:28:00 Eleazar rial [facility]iej Diastolic (mm Hg) 2015-03-24 17:28:00 [facility] [place] Heart Rate 2015-03-24 13:08:00 [facility] Temperature Oral (F) 2015-03-24 13:08:00 98.4 F [facility] Respitory Rate 2015-03-24 13:08:00 [facility] [...] Diastolic (mm Hg) 2015-03-11 22:39:00 [facility] [place] Respitory Rate 2015-03-11 22:39:00 [facility] [place] Heart Rate 2015-03-11 22:39:00 [facility] Temperature Oral (F) 2015-03-11 22:39:00 98.1 F [facility] [place] BMI Calculated 2015-03-11 19:44:00 [facility] [place] Weight 2015-03-11 19:44:00 [facility] Systolic (mm Hg) 2015-03-11 19:44:00 Eleazar rial [facility]iej Diastolic (mm Hg) 2015-03-11 19:44:00 [facility] [place] Temperature Oral (F) 2015-03-11 19:44:00 97.9 F [facility] Heart Rate 2015-03-11 19:44:00 [facility] Respitory Rate 2015-03-11 19:44:00 [facility] Height 2015-03-11 19:44:00 152.4 cm [facility] Temperature Oral (F) 2015-03-05 10:15:00 97.9 F [facility] [place] Systolic (mm Hg) 2015-03-05 10:15:00 Eleazar rial [place] Diastolic (mm Hg) 2015-03-05 10:15:00 [facility] [place] Respitory Rate 2015-03-05 10:15:00 [facility] [place] Respitory Rate 2015-03-05 09:53:00 [facility] [place] Temperature Oral (F) 2015-03-05 09:53:00 97.8 F [facility] Systolic (mm Hg) 2015-03-05 09:53:00 Eleazar [facility] [place] Diastolic (mm Hg) 2015-03-05 09:53:00 [facility] Respitory Rate 2015-03-05 06:30:00 [facility] [place] Systolic (mm Hg) 2015-03-05 06:30:00 Eleazar rial [facility] Diastolic (mm Hg) 2015-03-05 06:30:00 [facility] [place] Temperature Oral (F) 2015-03-05 06:20:00 97.7 F [facility] [place] Heart Rate 2015-03-05 06:20:00 [facility] Heart Rate 2015-03-05 05:46:00 [facility] [place] Height 2015-03-05 05:46:00 152.4 cm [facility] [place] BMI Calculated 2015-03-05 05:46:00 [facility] [place] Weight 2015-03-05 05:46:00 [facility] [place] Systolic (mm Hg) 2015-02-25 20:55:00 Eleazar rial [facility] Diastolic (mm Hg) 2015-02-25 20:55:00 [facility] [place] Temperature Oral (F) 2015-02-25 20:55:00 97.9 F [facility] Heart Rate 2015-02-25 20:55:00 [facility] [place] Respitory Rate 2015-02-25 20:55:00 [facility] [place] Temperature Oral (F) 2015-02-25 17:18:00 98 F [...] Oral (F) 2015-02-25 12:00:00 97.8 F [facility] [place] Height 2015-02-24 16:11:00 152.4 cm [facility] BMI Calculated 2015-02-24 16:11:00 [facility] [place] Weight 2015-02-24 16:11:00 [facility] [place] Heart Rate 2015-02-18 20:17:00 [facility] [place] Temperature Oral (F) 2015-02-18 20:17:00 97.3 F [facility] [place] Systolic (mm Hg) 2015-02-18 20:17:00 Eleazar [facility] [place] Diastolic (mm Hg) 2015-02-18 20:17:00 [facility] [place] Respitory Rate 2015-02-18 20:17:00 [facility] [place] Heart Rate 2015-02-18 16:13:00 [facility] Respitory Rate 2015-02-18 16:13:00 [facility] [place] Systolic (mm Hg) 2015-02-18 16:13:00 Eleazar rial [facility] Diastolic (mm Hg) 2015-02-18 16:13:00 [facility] [place] Temperature Oral (F) 2015-02-18 16:13:00 97.5 F [facility] Temperature Oral (F) 2015-02-18 12:19:00 97.9 F [facility] [place] Systolic (mm Hg) 2015-02-18 12:19:00 Eleazar rial [facility]iej Diastolic (mm Hg) 2015-02-18 12:19:00 [facility] [place] Respitory Rate 2015-02-18 12:19:00 [facility] [place] Heart Rate 2015-02-18 12:19:00 [facility] [place] Weight 2015-02-17 02:30:00 [facility] Height 2015-02-17 02:30:00 152.4 cm [facility] [place] BMI Calculated 2015-02-17 02:30:00 [facility] Weight 2015-02-16 20:42:00 [facility] BMI Calculated 2015-02-16 20:42:00 [facility] Height 2015-02-16 20:42:00 152.4 cm [facility] [place] Respitory Rate 2013-12-25 19:27:00 [facility] Heart Rate 2013-12-25 19:27:00 [facility] Diastolic (mm Hg) 2013-12-25 19:27:00 [facility] [place] Systolic (mm Hg) 2013-12-25 19:27:00 Eleazar rial [facility] Temperature Oral (F) 2013-12-25 19:27:00 98.3 F [facility] BMI Calculated 2013-12-25 16:48:00 [facility] Weight 2013-12-25 16:48:00 [facility] Height 2013-12-25 16:48:00 152.4 cm [facility] Respitory Rate 2013-12-25 16:48:00 [facility] [place] Heart Rate 2013-12-25 16:48:00 [facility] [place] Diastolic (mm Hg) 2013-12-25 16:48:00 [facility] [place] Systolic (mm Hg) 2013-12-25 16:48:00 Eleazar rial [facility] Temperature Oral (F) 2013-12-25 16:48:00 98.8 F [facility] [place] Heart Rate 2013-12-23 00:27:00 [facility] [place] Systolic (mm Hg) 2013-12-23 00:27:00 Eleazar rial [facility] Respitory Rate 2013-12-23 00:27:00 [facility] Temperature Oral (F) 2013-12-23 00:27:00 98.3 F [facility] [place] Diastolic (mm Hg) 2013-12-23 00:27:00 [facility] [place] Diastolic (mm Hg) 2013-12-22 23:06:00 [facility] Temperature Oral (F) 2013-12-22 23:06:00 98.4 F [facility] Systolic (mm Hg) 2013-12-22 23:06:00 Eleazar rial [facility] Respitory Rate 2013-12-22 23:06:00 [facility] [place] Heart Rate 2013-12-22 23:06:00 [facility] [place] Weight 2013-12-22 20:46:00 [facility] [place] Temperature Oral (F) 2013-12-22 20:46:00 98.7 F [facility] [place] Systolic (mm Hg) 2013-12-22 20:46:00 Eleazar rial [facility]iej Diastolic (mm Hg) 2013-12-22 20:46:00 [facility] Respitory Rate 2013-12-22 20:46:00 [facility] [place] Heart Rate 2013-12-22 20:46:00 [facility] Diastolic (mm Hg) 2013-12-17 20:30:00 [facility] [place] Respitory Rate 2013-12-17 20:30:00 [facility] Systolic (mm Hg) 2013-12-17 20:30:00 Eleazar [facility] [place] Systolic (mm Hg) 2013-12-17 19:06:00 Eleazar rial [facility] Diastolic (mm Hg) 2013-12-17 19:06:00 [facility] Respitory Rate 2013-12-17 19:06:00 [facility] [place] Systolic (mm Hg) 2013-12-17 18:54:00 Eleazar [facility] [place] Diastolic (mm Hg) 2013-12-17 18:54:00 [facility] Temperature Oral (F) 2013-12-17 17:09:00 98.1 F [facility] Respitory Rate 2013-12-17 16:50:00 [facility] [place] Temperature Oral (F) 2013-12-17 09:00:00 97.1 F [facility] Height 2013-12-17 02:58:00 152.4 cm [facility] [place] Weight 2013-12-17 02:58:00 [facility] BMI Calculated 2013-12-17 02:58:00 [facility] [place] Temperature Oral (F) 2013-12-17 02:55:00 98.1 F [facility] [place] Height 2013-12-16 17:19:00 152.4 cm [facility] BMI Calculated 2013-12-16 17:19:00 [facility] [place] Weight 2013-12-16 17:19:00 [facility] Heart Rate 2013-12-16 17:19:00 [facility] [place] Temperature Oral (F) 2013-11-08 21:00:00 98 F [facility] Diastolic (mm Hg) 2013-11-08 21:00:00 [facility] [place] Respitory Rate 2013-11-08 21:00:00 [facility] [place] Systolic (mm Hg) 2013-11-08 21:00:00 Eleazar rial [facility] Temperature Oral (F) 2013-11-08 19:13:00 97.6 F [facility] [place] Diastolic (mm Hg) 2013-11-08 19:13:00 [facility] [place] Systolic (mm Hg) 2013-11-08 19:13:00 Eleazar [facility] [place] Respitory Rate 2013-11-08 19:13:00 [facility] [place] Systolic (mm Hg) 2013-11-08 16:18:00 Eleazar rial [place] Respitory Rate 2013-11-08 16:18:00 [facility] [place] Diastolic (mm Hg) 2013-11-08 16:18:00 [facility] [place] Temperature Oral (F) 2013-11-08 11:34:00 99.0 F [facility] Heart Rate 2013-11-08 11:34:00 [facility] [place] Heart Rate 2013-11-08 08:04:00 [facility] Calculated 2013-11-08 04:51:00 Afiaveto Benjamin Height 2013-11-08 04:51:00 152.4 cm [facility] Weight 2013-11-08 04:51:00 [facility] Heart Rate 2013-11-08 04:51:00 [facility] Procedures Procedure Date / Time Performing Clinician Source Performed Cardiac catheterization [facility] procedure Stent placement<sup>1</sup> Eleazar moore Maciej Plan of Care Planned Activity Planned Date Details Comments Source Future Scheduled Test 2021-05-29 IMM Influenza Seasonal [facility] 00:00:00 May to October (>/= 19 yrs) [code = IMM Influenza Seasonal May to October (>/= 19 yrs)] Future Scheduled Test 2015 IMM Pneumococcal Age 65 [facility] 00:00:00 and Up [code = IMM Pneumococcal Age 65 and Up] Future Scheduled Test 2000 Screening for malignant [facility] 00:00:00 neoplasm of colon (procedure) [code = 466575615] Future Scheduled Test 1990 Breast Cancer Scrn [facility] 00:00:00 (Yearly) [code = Breast Cancer Scrn (Yearly)] Future Scheduled Test 1962 COVID-19 Vaccine (1) [facility] 00:00:00 [code = COVID-19 Vaccine (1)] Encounters Start End Encounter Admission Attending Care Care Encounter Source Date/Time Date/Time Type Type Clinicians Facility Department ID 2020-10-15 2020-10-15 Emergency [facility] [id number] 02:02:00 04:45:00 Ciaran Freitas [id number] [place] [id number] [place] [id number] 2020-01-21 2020-01-21 Outpatient E [id number] 05:31:00 05:31:00 2019-10-15 2019-10-15 Emergency E [facility] [id number] [facility] 13:12:00 13:12:00 2019-05-20 2019-05-20 Emergency E [id number] 15:19:00 15:19:00 2019-02-25 2019-02-25 Emergency E MHH [facility] [id number] [facility] 10:56:00 10:56:00 2018-08-21 2018-08-21 Emergency [facility] [id number] [place] 18:32:58 18:32:58 [facility] 2018-08-21 2018-08-21 Emergency [facility] [id number] [place] 17:47:59 17:47:59 [facility] 2018-08-21 2018-08-21 Emergency [facility] [id number] [place] 16:16:06 16:16:06 [facility] 2018-08-16 2018-08-16 Emergency [facility] [id number] [place] 22:04:00 22:04:00 [facility] 2018-08-16 2018-08-16 Emergency [facility] [id number] [place] 21:21:42 21:21:42 [facility] 2018-05-18 2018-05-18 Emergency [facility] [id number] [place] 14:51:52 14:51:52 [facility] 2018-03-08 2018-03-08 Emergency [facility] [id number] [place] 15:12:17 15:12:17 [facility] 2018-01-16 2018-01-16 Emergency [facility] [id number] [place] 17:53:03 17:53:03 [facility] 2018-01-16 2018-01-16 Emergency [facility] [id number] [place] 00:00:00 00:00:00 [facility] 2018-01-16 2018-01-16 Outpatient [facility] [id number] [place] 00:00:00 00:00:00 [facility] 2017-11-11 2017-11-11 Emergency E [facility] [id number] [facility] 16:37:00 16:37:00 [facility] 2017-01-19 2017-01-19 Emergency [facility] [id number] Memoria 17:18:00 23:37:00 geovanny Wing 34 l [facility] 2017-01-19 2017-01-19 Outpatient Patel, MHSE MHSE [id number] 12:18:00 18:37:00 Macmayra Bond 2017-01-16 2017-01-17 Emergency [facility] [id number] Mem[facility] 23:22:00 02:34:00 geovanny Wing 33 l [facility] 2017-01-16 2017-01-16 Outpatient SAHRA [place] [facility] [id number] 18:22:00 21:34:00 Jl 33 Lida 2016-11-29 2016-11-29 Emergency nullFlavo [facility] [id number] [facility] 00:17:00 04:13:00 r Maciej 32 l [facility] 2016-11-28 2016-11-28 Outpatient Ace, PL PL [id number] 19:17:00 23:13:00 Jason 32 Mel[place] 2016-11-06 2016-11-07 Emergency nullFlavo [facility] [id number] Mem[facility] 23:34:00 03:03:00 r Maciej 31 l [facility] 2016-11-06 2016-11-06 Outpatient Nava, PL [facility] [id number] 17:34:00 21:03:00 Yousifkannan Perry 2016-10-10 2016-10-11 Observatio nullFlavo [facility] [id number] Memoria 17:45:00 19:54:00 n geovanny Wing 30 l [facility] 2016-10-10 2016-10-11 Outpatient Cinthya, [facility] [id number] 11:45:00 13:54:00 Jessika Read 30 2016-09-15 2016-09-15 Emergency nullFlavo [facility] [id number] Memoria 03:19:00 06:56:00 r Maciej 29 l [facility] 2016-09-14 2016-09-15 Outpatient Weathers, [facility] [id number] 21:19:00 00:56:00 Nando Neville 29 2016-04-14 2016-04-14 Emergency nullFlavo [facility] [id number] Memoria 02:11:00 06:37:00 r Maciej 28 l [facility] 2016-04-13 2016-04-14 Outpatient Frandy, [facility] [id number] 21:11:00 01:37:00 Jose 28 Magylew 2016-03-11 2016-03-12 OBS nullFlavo [facility] [id number] [facility] 19:41:00 20:25:00 Observatio r Maciej 27 l n Patient [facility] 2016-03-11 2016-03-12 Outpatient Mihai, [facility] [id number] 14:41:00 15:25:00 Andrea 27 Ned 2016-03-05 2016-03-06 EC nullFlavo [facility] [id number] [facility] 21:54:00 02:21:00 Emergency r [place] 26 l [facility] 2016-03-05 2016-03-05 Outpatient Rina, [facility] [id number] 16:54:00 21:21:00 Rachele Phelpsope 2016-02-29 2016-03-01 EC nullFlavo [facility] [id number] [facility] 22:25:00 01:29:00 Emergency r [place] 25 l [facility] 2016-02-29 2016-02-29 Outpatient Bayron, [facility]PL MH[facility] [id number] 17:25:00 20:29:00 Good 25 2015-09-04 2015-09-05 OBS nullFlavo [facility] [id number] [facility] 03:30:00 16:26:00 Observatio r Maciej 24 l n Patient [facility] 2015-09-03 2015-09-05 Outpatient Mateus Dixon [facility] [id number] 21:30:00 10:26:00 B 24 2015-07-15 2015-07-16 OBS nullFlavo [facility] [id number] [facility] 18:00:00 21:30:00 Observatio r Maciej 23 l n Patient [facility] 2015-07-15 2015-07-16 Outpatient Anjel [facility] [id number] 12:00:00 15:30:00 Jante 23 2015-07-05 2015-07-05 EC nullFlavo [facility] [id number] [facility] 04:07:00 07:09:00 Emergency r Maciej 22 l Center [facility] 2015-07-04 2015-07-05 Outpatient Dick [facility] [id number] 22:07:00 01:09:00 Habacrekha Breen 2015-07-04 2015-07-04 EC nullFlavo [facility] [id number] [facility] 17:57:00 20:54:00 Emergency r [place] 21 l [facility] 2015-07-04 2015-07-04 Outpatient Hemal [facility] [id number] 11:57:00 14:54:00 Maribel Sho 21 2015-06-04 2015-06-04 EC nullFlavo [facility] [id number] Memoria 04:00:00 07:09:00 Emergency r [place] [address] [facility] 2015-06-03 2015-06-04 Outpatient Ware, [facility] [id number] 23:00:00 02:09:00 Luzmarialeona Pisano 2015-05-18 2015-05-18 EC nullFlavo [facility] [id number] Memoria 16:55:00 23:04:00 Emergency r [place] 19 [facility] 2015-05-18 2015-05-18 Outpatient Jennifer, [facility] [id number] 11:55:00 18:04:00 Indira S 19 2015-05-09 2015-05-09 EC nullFlavo [facility] [id number] [facility] 17:15:00 20:10:00 Emergency r [place] 18 [facility] 2015-05-09 2015-05-09 Outpatient Jennifer, [facility] [id number] 12:15:00 15:10:00 Indira S 18 2015-05-02 2015-05-03 EC nullFlavo [facility] [id number] Memoria 18:18:00 00:05:00 Emergency r [place] 17 [facility] 2015-05-02 2015-05-02 Outpatient Jennifer, [facility] [id number] 13:18:00 19:05:00 Indira S 17 2015-04-11 2015-04-11 EC nullFlavo [facility] [id number] [facility] 16:25:00 19:47:00 Emergency r [place] 16 [facility] 2015-04-11 2015-04-11 Outpatient Yovani [facility] [id number] 11:25:00 14:47:00 Gilmar Moralesk 16 2015-03-30 2015-03-30 EC nullFlavo [facility] [id number] [facility] 19:39:00 22:11:00 Emergency r [place] [address] [facility] 2015-03-30 2015-03-30 Outpatient Charito, [facility] [id number] 14:39:00 17:11:00 Isatu 15 Lucy 2015-03-21 2015-03-24 Inpatient nullFlavo [facility] [id number] Memoria 18:24:00 22:30:00 r Maciej 14 l [facility] 2015-03-21 2015-03-24 Outpatient Richmond, [facility] [id number] 13:24:00 17:30:00 Catarino Valladares 2015-03-11 2015-03-11 EC nullFlavo [facility] [id number] Mem[facility] 19:43:00 22:41:00 Emergency r Maciej [address] [facility] 2015-03-11 2015-03-11 Outpatient Dick, [facility] [id number] 14:43:00 17:41:00 Habalisonrekha Breen 2015-03-05 2015-03-05 EC nullFlavo [facility] [id number] [facility] 05:43:00 10:21:00 Emergency r [place] 12 [facility] 2015-03-05 2015-03-05 Outpatient Tata Rushing 2.16.840. 2.16.840. 1. [id number] 00:43:00 05:21:00 Martell [id number] [id number] 3306-06-29 2015-02-26 OBS nullFlavo [facility] [id number] Memoria 15:34:00 01:14:00 Observatio r Maciej 11 l n Patient [facility] 2015-02-24 2015-02-25 Outpatient Dixon, 2.16.840. 2.16.840.1. 3 [id number] 10:34:00 20:14:00 Tucker [id number] [id number] 8330-06-21 2015-02-18 OBS nullFlavo [facility] [id number] Mem[facility] 20:36:00 21:00:00 Observatio r Maciej 10 l n Patient [facility] 2015-02-16 2015-02-18 Outpatient Thu, 2.16.840. 2.16.840.1. 3 [id number] 15:36:00 16:00:00 [place] [id number] [place] [id number] 5.0.928 01 8219-04-29 2013-12-25 EC nullFlavo [facility] [id number] [facility] 16:37:00 19:52:00 Emergency r [place] 09 [facility] 2013-12-25 2013-12-25 Outpatient Dorothea, 2.16.840. 2.16.840.1. [id number] 11:37:00 14:52:00 Rishabh Gold [id number] [id number] 5977-04-26 2013-12-23 EC nullFlavo [facility] [id number] [facility] 20:43:00 00:29:00 Emergency r [place]iej 08 [facility] 2013-12-22 2013-12-22 Outpatient Nba, 2.16.840. 2.16.840.1. 3 [id number] 15:43:00 19:29:00 Jann [id number] Jl [id number] 5.0.134 [id number] 2223-04-20 2013-12-17 OBS nullFlavo [facility] [id number] [facility] 17:18:00 22:45:00 Observatio r Maciej 07 [facility] 2013-12-16 2013-12-17 Outpatient Beth, 2.16.840. 2.16.840.1. 3 [id number] 12:18:00 17:45:00 Alvarez [id number] [id number] [id number] 5538-03-13 2013-11-08 OBS nullFlavo [facility] [id number] 8_3 [facility] 04:50:00 23:00:00 Observatio geovanny Wing [id number] [address] 2013-11-07 2013-11-08 Outpatient Jazmin, [facility] [id number] 23:50:00 18:00:00 Dustin Results Test Description [...] 11:24 pm URINE AND STOOL 2017-01-19 Negative [facility] 19:21:00 *NA*(01/19/17 2:21 [place] PM) URINE AND STOOL 2017-01-19 Negative (01/19/17 Me morial 19:21:00 2:21 PM) [place] URINE AND STOOL 2017-01-19 Negative (01/19/17 Me morial 19:21:00 2:21 PM) [place] URINE AND STOOL 2017-01-19 Negative (01/19/17 Me morial 19:21:00 2:21 PM) [place] URINE AND STOOL 2017-01-19 1 [facility] 19:21:00 [place] URINE AND STOOL 2017-01-19 1 [facility] 19:21:00 [facility] URINE AND STOOL 2017-01-19 7.0 [facility] 19:21:00 [place] URINE AND STOOL 2017-01-19 1.008 [facility] 19:21:00 [facility] URINE AND STOOL 2017-01-19 Clear (01/19/17 2:21 [facility] 19:21:00 PM) [facility] HEMATOLOGY 2017-01-19 0.3 [facility] 18:07:00 [place] HEMATOLOGY 2017-01-19 68.3 [facility] 18:07:00 [facility] HEMATOLOGY 2017-01-19 0.6 [facility] 18:07:00 [facility] HEMATOLOGY 2017-01-19 5.3 [facility] 18:07:00 [place] HEMATOLOGY 2017-01-19 4.5 [facility] 18:07:00 [facility] HEMATOLOGY 2017-01-19 0.6 [facility] 18:07:00 [place] HEMATOLOGY 2017-01-19 1.4 [facility] 18:07:00 [place] HEMATOLOGY 2017-01-19 7.8 [facility] 18:07:00 [place] HEMATOLOGY 2017-01-19 18.8 [facility] 18:07:00 [place] CARDIAC ENZYMES 2017-01-19 3.0 [facility] 18:07:00 [place] CARDIAC ENZYMES 2017-01-19 <0.02 [facility] 18:07:00 [place] CHEM PANEL 2017-01-19 231 [facility] 18:07:00 [place] CHEM PANEL 2017-01-19 9 [facility] 18:07:00 [place] CHEM PANEL 2017-01-19 8.4 [facility] 18:07:00 [place] CHEM PANEL 2017-01-19 1.0 [facility] 18:07:00 [place] CHEM PANEL 2017-01-19 3.6 [facility] 18:07:00 [place] CHEM PANEL 2017-01-19 7 [facility] 18:07:00 [place] CHEM PANEL 2017-01-19 32 [facility] 18:07:00 [place] CHEM PANEL 2017-01-19 104 [facility] 18:07:00 [place] CHEM PANEL 2017-01-19 3.4 [facility] 18:07:00 [place] CHEM PANEL 2017-01-19 141 [facility] 18:07:00 [place] CHEM PANEL 2017-01-19 0.79 [facility] 18:07:00 [place] CHEM PANEL 2017-01-19 3.6 [facility] 18:07:00 [place] CHEM PANEL 2017-01-19 9.1 [facility] 18:07:00 [place] CHEM PANEL 2017-01-19 25 [facility] 18:07:00 [place] CHEM PANEL 2017-01-19 7.2 [facility] 18:07:00 [place] CHEM PANEL 2017-01-19 1.1 [facility] 18:07:00 [place] CHEM PANEL 2017-01-19 111 [facility] 18:07:00 [place] CHEM PANEL 2017-01-19 31 [facility] 18:07:00 [place] CHEM PANEL 2017-01-19 90 [facility] 18:07:00 [place] CHEM PANEL 2017-01-19 73 [facility] 18:07:00 [place] CHEM PANEL 2017-01-19 75 [facility] 18:07:00 [place] HEMATOLOGY 2017-01-19 18:07:00 Test Item Value Reference Range Interpretation Comme nts PTT (test code = PTT) 31.3 s 22.9-35.8 [facility] JiiaevbWQLOYMNSWO0804-75-21 18:07:008.5[facility]ann[facility]Y 2017-01-19 18:07:0042.0[facility] FstwfweXFVQMPTOAV0730-14-74 18:07:004.92[facility] NjrgwgdCCXQALTSMW1039-21-68 18:07:0014.4[facility] CvblwqtWSECWHVDZO1750-27-82 18:07:0014.2[facility] XcbsnktTMOKBQIDBA2672-23-70 18:07:22204Deqhtwkp Maciej MUDHOKGKHR8619-04-28 18:07:0034.2[facility] AsafgvaPEOZJUYVIK1378-13-29 18:07:00 Test Item Value Reference Range Interpretation Comments MCH (test code = MCH) 29.2 pg 27.0-31.0 [facility] UvazlzzHVGRGUTAPJ6611-30-76 18:07:0085.5[facility]ann[facility]MATOLOGY 2017-01-19 18:07:007.7[facility] BcshhqaRBKZUJMRQQ6894-29-19 18:07:00 Test Item Value Reference Range Interpretation Comments PT (test code = PT) 13.7 s 12.0-14.7 [facility] [id number] 18:07:001.03[facility] 2017-01-17 00:23:00Positive *ABN*(01/16/17 7:23 PM)[facility] 2017-01-17 00:23:00Negative *NA*(01/16/17 7:23 PM)[facility] 2017-01-17 00:23:00Negative *NA*(01/16/17 7:23 PM)[facility] 2017-01-17 00:23:00Negative *NA*(01/16/17 7:23 PM)[facility] 2017-01-17 00:23:00See Note (01/16/17 7:23 PM)[facility] 2017-01-17 00:23:00Negative *NA*(01/16/17 7:23 PM)[facility] 2017-01-17 00:23:00Negative *NA*(01/16/17 7:23 PM)[facility] 2017-01-17 00:23:00Negative *NA*(01/16/17 7:23 PM)[facility] 2017-01-17 00:23:00Negative *NA*(01/16/17 7:23 PM)[facility] 2017-01-17 00:23:00Negative *NA*(01/16/17 7:23 PM)[facility]17 00:23:00Negative (01/16/17 7:23 PM)[facility] 2017-01-17 00:23:00Negative (01/16/17 7:23 PM)[facility] 2017-01-17 00:23:00Negative (01/16/17 7:23 PM)[facility] 2017-01-17 00:23:001.0[facility] DICYS3264-38-06 00:23:00Negative (01/16/17 7:23 PM)[facility] ZKRZP8720-61-09 00:23:00Slight Cloudy (01/16/17 7:23 PM)[facility] VOHYZ6000-26-19 00:23:00 Test Item Value Reference Range Interpretation Comments UA Spec Grav (test code = UA Spec 1.007 1 Grav) [facility] WUPXU7486-47-89 00:23:00 Test Item Value Reference Range Interpretation Comments UA pH (test code = UA pH) 6.0 1 5.0-8.0 [facility] OXGML5404-76-91 00:23:00Negative (01/16/17 7:23 PM) [facility] MVUCW9418-07-10 00:23:00Yellow *NA*(01/16/17 7:23 PM) [facility] SLHBKLG6116-34-19 23:57:00<0.02[facility] CARDIAC MSEWCWA3862-49-50 23:57:002.0[facility] HYXBTIR6252-99-05 23:57:11919Rdnmjyew HermannCARDIAC IUCUPRD5767-50-96 23:57:001.0[facility] CHEM GAFSY3847-40-92 23:57:0073[facility]annCHEM ARIPM5849-68-62 23:57:0029 [facility] AHTQO1124-05-43 23:57:09721Dcmxcwaj HermannCHEM PANEL 2017-01-16 23:57:32306Ufcwnpoy HermannCHEM IPLXN2005-75-50 23:57:0015[facility]annCHE[facility] DBIWM2471-05-97 23:57:0011.0[facility]annCHE[facility] XBJII4123-14-82 23:57:0016[facility]annCHE[facility] IOTGN5106-99-29 23:57:009.4[facility]CHE[facility] NBMXS6112-90-35 23:57:000.94[facility]annCHE[facility] SXIBA2411-02-72 23:57:59425 [facility]CHE[facility] QXHPN4760-48-04 23:57:004.0[facility]annCHE[facility] PANEL 2017-01-16 23:57:003.6[facility]annCHE[facility] ABCZI2312-74-61 23:57:0024[facility]annCHE[facility] ASMKA7608-76-99 23:57:000.6[facility]annCHE[facility] ZHCOX8682-42-64 23:57:90365Aqsxbhua HermannCHEM VKANC9636-12-42 23:57:0029[facility]annCHE[facility] UNOIB3031-94-74 23:57:000.9[facility]annCHE[facility] DFRIF7008-44-90 23:57:003.9 [facility]CHE[facility] EGCQM6326-54-12 23:57:007.5[facility]annHEMATOLOGY 2017-01-16 23:57:0014.6[facility] VkdyukoYULANWCJQO0807-40-36 23:57:0042.7[facility] GytrhsuROVLNUYMJY5866-79-44 23:57:0034.2[facility] PjjyagtKJWDPGJXOI6298-36-13 23:57:0085.3[facility] HjzzerzLQAXPQYVLQ5006-08-75 23:57:00 Test Item Value Reference Range Interpretation Comments MCH (test code = MCH) 29.2 pg 27.0-31.0 [facility] MzwmtpzBFRFCAJPNK4699-73-88 23:57:0014.3[facility]annHEMATOLOGY 2017-01-16 23:57:23766Yfpcnobx FhgexiwHNNIBKVCJH3618-32-65 23:57:008.0[facility] HblrgbtVOVHWDRVDZ2608-34-91 23:57:006.6[facility] AjpjqxaTSHAUDUTYX6408-50-51 23:57:005.00[facility] GuqqyigKYZWGNCLXZ8053-71-97 23:57:000.8[facility] GNJXCGKIIB1544-12-35 23:57:004.0[facility] TydfewxYLJQOZDPZN9732-07-08 23:57:000.5 [facility] KmmcobiEZDSECDAML2233-06-64 23:57:000.1[facility]annHEMATOLOGY 2017-01-16 23:57:001.8[facility] VfxeeobNHIBDRGEOG8727-30-85 23:57:000.2[facility] JneciuzUEFJEKWHIN2374-87-62 23:57:0060.6[facility] BqdqqqeXVAKWSYUGS9627-05-16 23:57:008.3[facility] PrslpcyYEATLABDRY1134-18-09 23:57:003.5[facility] KXDQHJBYZG1130-81-82 23:57:0026.8[facility] KYYDU1017-30-22 02:18:00Negative *NA*(11/28/16 9:18 PM)[facility] EUKFS9479-83-16 02:18:00Negative (11/28/16 9:18 PM)[facility] BXKYG2090-16-64 02:18:001.0[facility] NBXGL9414-13-56 02:18:00Negative (11/28/16 9:18 PM)[facility] GXIJM4243-90-62 02:18:00Negative *NA*(11/28/16 9:18 PM)[facility] AWXNZ9558-66-61 02:18:00Moderate *ABN*(11/28/16 9:18 PM)[facility] AEHRM8120-77-87 02:18:00Yellow *NA*(11/28/16 9:18 PM)[facility] IIEEL7257-83-69 02:18:00 Test Item Value Reference Range Interpretation Comments UA pH (test code = UA pH) 6.0 1 5.0-8.0 [facility] NROHN9999-49-21 02:18:00Negative (11/28/16 9:18 PM) [facility] UZGBO1282-97-48 02:18:00Negative (11/28/16 9:18 PM) [facility] GSURO4602-23-70 02:18:00<=1.005 *NA*(11/28/16 9:18 PM)[facility] PZHBY4251-03-64 02:18:00Clear (11/28/16 9:18 PM) [facility] SDXAHDC4734-08-72 01:37:00<0.02[facility] CARDIAC ITAAHNR6762-32-64 01:37:001.3[facility] YGCHPKX3756-30-69 01:37:0089[facility] DRMBCAY6566-08-71 01:37:001.5[facility] CHEM AVHTB2788-65-98 01:37:003.9[facility]annCHEM FKZWA2085-44-51 01:37:0050 [facility]CHE[facility] TFYZZ6928-60-29 01:37:000.9[facility]annCHEM PANEL 2016-11-29 01:37:0024[facility]annCHEM WCURA6371-22-92 01:37:003.7[facility]annCHEM BQKOM5127-81-65 01:37:0089[facility]annCHEM XYUGE9378-61-69 01:37:78957Jyxpuggr HermannCHEM AMFPD5791-41-13 01:37:0010[facility]annCHE[facility] CLOQU1725-25-18 01:37:001.28[facility]annCHE[facility] MEPSP2475-71-91 01:37:0030 [facility]annCHE[facility] UZOOI6945-96-39 01:37:14592Lavmslas HermannCHEM PANEL 2016-11-29 01:37:009.5[facility]annCHEM FKAGA5878-73-05 01:37:009.5[facility]annCHEM WZFKU9278-23-49 01:37:008[facility]annCHEM LQOLB2867-87-74 01:37:000.7[facility]annCHEM XXUPD3549-34-73 01:37:29883Hdwetfty HermannCHEM WPPUS7610-63-44 01:37:003.5[facility]annCHEM KESML1941-49-51 01:37:007.6 [facility]annCHE[facility] XESZV0285-60-48 01:37:0014[facility]annHEMATOLOGY 2016-11-29 01:10:0033.4[facility] HcwfvaqFBJRLHFFGA8154-57-39 01:10:77474Oxkqghnd GgokjgfLXQOWZGFNB7278-27-11 01:10:0014.7[facility] YdvcapaQJPIGWWTRK9832-86-74 01:10:008.1[facility] NeqitlvNYHFDJVIXQ7641-13-52 01:10:005.34[facility] OWKYKDPKSG1889-44-96 01:10:0015.5[facility] TrmbzhiTQVEFJISCS4599-26-14 01:10:00 87.0[facility] GchkytsWRQOONOEGS2466-00-90 01:10:0046.4[facility]annHEMATOLOGY 2016-11-29 01:10:00 Test Item Value Reference Range Interpretation Comments MCH (test code = MCH) 29.1 pg 27.0-31.0 [facility] UkokssiJXKCWNXKMB6685-28-46 01:10:008.0[facility]annHEMATOLOGY 2016-11-29 01:10:000.1[facility] QukzavqNIRERXXCGC1364-62-08 01:10:002.0[facility] TotvgauHVDDNDMKTY8429-81-72 01:10:005.1[facility] XlxsirlGPQKEWXDPU4192-00-95 01:10:000.2[facility] WnfbafsYSWHMOHDCC1969-72-69 01:10:000.8[facility] DZHFDZZCDM2812-53-29 01:10:0063.2[facility] RounyqaHPOPQRJCHC4855-10-46 01:10:00 24.3[facility] MniouylMMSQMSENVF5804-09-69 01:10:002.1[facility]annHEMATOLOGY 2016-11-29 01:10:009.6[facility] GrrurhxDERKMGZIKF7013-81-35 01:10:000.8[facility]annVIRAL - HDSSHTNG6657-75-26 01:10:00Negative (11/28/16 8:10 PM)[facility]annVIRAL - VDIZMLVM4583-44-43 01:10:00Negative (11/28/16 8:10 PM)[facility]CARDIAC OGLUYJQ5517-38-47 01:15:001.3[facility]annCARDIAC ENZYMES 2016-11-07 01:15:00<0.02[facility]annCARDIAC RNNJURN1903-88-24 01:15:001.9 [facility]AC PXMKIYF7076-69-22 01:15:75578Qhdmqalt HermannCHEM PANEL 2016-11-07 01:15:0077[facility]annCHEM JDVPF4196-69-57 01:15:0017[facility]annCHEM PSKRN9751-56-96 01:15:006.8[facility]annCHEM JIWBL9282-37-73 01:15:008.5[facility]annCHEM PMDSM9096-99-80 01:15:000.8[facility]annCHEM YIOLQ0272-29-94 01:15:13488Liisrjbr HermannCHEM ZZYEL7648-57-71 01:15:0031 [facility]annCHE[facility] HBFSA1342-61-61 01:15:003.1[facility]annCHEM PANEL 2016-11-07 01:15:000.90[facility]annCHEM YHUHM1655-85-45 01:15:04495Xxoqdfhd HermannCHEM QCAZV7438-70-14 01:15:0012[facility]annCHEM SATBR3892-97-87 01:15:0096[facility]annCHEM YLBYE1590-35-62 01:15:003.3[facility]annCHEM AGUSV1972-53-94 01:15:0076[facility]annCHEM YLPYB7755-61-02 01:15:0020 [facility]annCHE[facility] QUSJM6830-41-68 01:15:003.5[facility]annCHEM PANEL 2016-11-07 01:15:000.9[facility]annCHEM CCMBT2357-10-92 01:15:0010.1[facility]annCHEM CLJVN4039-79-66 01:15:0013[facility] RsjvyozUMBWUXLQUN7714-69-71 01:15:002.8[facility] EhuzvimIXKDBYSXQK9351-32-43 01:15:000.2[facility] XWFYRANIGH9862-60-40 01:15:000.1[facility] MjwdbxpYXXXDOUPEZ4331-69-12 01:15:000.7 [facility] QeaiszlTOTGLRHQMU5279-96-47 01:15:000.8[facility]annHEMATOLOGY 2016-11-07 01:15:004.5[facility] RkzilyuEAMAGMFXMK4484-72-42 01:15:002.2[facility] JenbjstVPYQDYJRFQ1271-13-28 01:15:0058.5[facility] XviappgBJGUCZEKEG0536-94-16 01:15:0028.8[facility] AqjajuqHQXBSYLAZE5696-19-44 01:15:009.1[facility] XLQTITUZZH7131-04-27 01:15:39975Uvanzrmq GkncbdyEPXGHLVZVB7274-98-22 01:15:00 14.3[facility] WxkjihkIGCHGLWGXY0364-03-96 01:15:008.1[facility]annHEMATOLOGY 2016-11-07 01:15:007.7[facility] ZpjjkgzRFYXUTZVBL2558-14-78 01:15:0013.1[facility] UptxzemLGHUBLSOBL6044-21-66 01:15:004.48[facility] BqdsqesFLQTNBYDPZ1020-88-76 01:15:00 Test Item Value Reference Range Interpretation Comments MCH (test code = MCH) 29.3 pg 27.0-31.0 [facility] SpsthasDPCMKPOGDH8760-38-25 01:15:0039.1[facility]annHEMATOLOGY 2016-11-07 01:15:0087.3[facility] MzmtshzJIQTPGTRKZ6382-49-35 01:15:0033.6[facility]annDRUG ZEQMPB8803-21-93 11:24:00Negative *NA*(10/11/16 5:24 AM)[facility]annDR[facility] RZPAKD6856-76-59 11:24:00Negative *NA*(10/11/16 5:24 AM)[facility]annDR[facility] IDDYMR5168-69-20 11:24:00Negative *NA*(10/11/16 5:24 AM)[facility]annDR[facility] DJSVYR9986-34-92 11:24:00Negative *NA*(10/11/16 5:24 AM)[facility]annDR[facility] GLASHE6225-43-91 11:24:00Positive *ABN*(10/11/16 5:24 AM)[facility]DR[facility] NBVQAP4625-37-77 11:24:00See Note (10/11/16 5:24 AM)[facility] DRUG XWKVTE7309-19-58 11:24:00Negative *NA*(10/11/16 5:24 AM)[facility]DR[facility] MVOOUG7278-61-81 11:24:00Negative *NA*(10/11/16 5:24 AM)[facility]IAC HHZRUOQ1823-21-29 09:58:00<0.02[facility] AnewqzbJJAQIAIPMQ4818-90-78 09:58:00 0.4[facility] SxieupsCSSSPAVAVQ7422-79-42 09:58:000.1[facility]annHEMATOLOGY 2016-10-11 09:58:006.3[facility] ZacifpxZKTVFRRLEX0693-03-33 09:58:001.0[facility] EaftrgvJVCDQZIQEH2316-38-52 09:58:002.7[facility] OasyqvjQRRGWSXXVK5635-69-66 09:58:002.1[facility] BkfnfbtFBULQOGPNR1534-44-03 09:58:000.6[facility] HXSNHRXQCV3821-68-15 09:58:0036.3[facility] NestgafYUGBEMFRBW2480-34-25 09:58:00 46.0[facility] RtzinbiATUFBOGDGO8745-63-68 09:58:0010.4[facility]annHEMATOLOGY 2016-10-11 09:58:008.7[facility] HxvflfpQUMWDJUFVH8284-46-13 09:58:28906Sidqoonw BrkgrrfQZCIMXZOAY8190-81-87 09:58:00 Test Item Value Reference Range Interpretation Comments MCH (test code = MCH) 29.3 pg 27.0-31.0 [facility] ToabtbpQIHJDQDEIN7781-70-22 09:58:0087.2[facility]annHEMATOLOGY 2016-10-11 09:58:0014.4[facility] BfvjjqsMMPITNOWYZ8213-00-72 09:58:0033.6[facility] ZjdfqklEWFSDNWEFY6360-74-64 09:58:0013.1[facility] JknlcpnWRITFKVTDK9833-89-84 09:58:004.45[facility] WvdtkzhQXAVHKRSDD2568-47-14 09:58:0038.8[facility] UCYMZRSILV2678-22-47 09:58:005.8[facility] YfbxbsvEITJGG0407-63-27 09:58:002.84 [facility] XvjvtnsSQTNIX1076-94-29 09:58:0014[facility] BomuapxBKWKLA0167-07-47 09:58:0087[facility] OdfxsomHRFQJL0421-52-57 09:58:0071[facility] HermannLIPIDS 2016-10-11 09:58:01588Jdkjfwqu UrgvzzjGDNLMR3829-26-90 09:58:0055[facility]annCARDIAC DWYIJSQ5604-27-27 00:00:00<0.02[facility]annCARDIAC ENZYMES 2016-10-10 19:10:33<0.02[facility]annCHEM HWSWT6499-05-91 19:10:3392 [facility]annCHEM GMQKP3949-34-89 19:10:338[facility]annCHEM PANEL 2016-10-10 19:10:330.78[facility]annCHEM PCSGR1483-38-83 19:10:33173Rvzrxvph HermannCHEM STYLR3793-38-44 19:10:333.2[facility]annCHEM OHKQN9919-63-28 19:10:339.3[facility]annCHEM YFXOX0010-80-37 19:10:3331[facility]annCHEM TIBUP5048-69-10 19:10:97264Qzbifckc HermannCHEM HSYFI1017-12-39 19:10:17225 [facility]annCHEM PSZIQ9930-94-42 19:10:337.2[facility]annHEMATOLOGY 2016-10-10 19:10:3333.8[facility] OcvdbslMYRQMUJUKI4266-09-03 19:10:3314.2[facility] LedcutgAOKWHBVELY6863-99-52 19:10:33 Test Item Value Reference Range Interpretation Comments MCH (test code = MCH) 29.4 pg 27.0-31.0 [facility] WoibcxlWOMCPTVHUA6931-96-98 19:10:3387.0[facility]annHEMATOLOGY 2016-10-10 19:10:3313.5[facility] AstgjdaCMGJCWEUTG2478-91-96 19:10:3339.8[facility] EwgceawEHMIYMQQAT8747-39-71 19:10:22751Uclbfjym JiuzgnqKUXUIOIBJO3018-61-89 19:10:338.7[facility] NwbvhjpSJTKBVEWTC1784-27-66 19:10:336.6[facility] MOQRBVBQEQ9130-78-31 19:10:334.58[facility] ZskczzgJNHWJNMING7479-10-99 19:10:33 1.8[facility] UncecghZMASHKAAJK1908-04-18 19:10:330.6[facility]annHEMATOLOGY 2016-10-10 19:10:330.3[facility] JfjcdnmFYGROKOWVB0523-06-03 19:10:330.6[facility] EzzdovuJECXNCRQUT4911-92-30 19:10:333.9[facility] TajuujyANPVYIMRIN9797-91-27 19:10:339.0[facility] XulhkixNATEUSSVFL9434-38-62 19:10:334.1[facility] JXIPBJVNKW1656-61-66 19:10:3359.5[facility] AkvukroBCIZYHFIJY3639-01-63 19:10:33 26.8[facility]annCARDIAC VRSVHQD3969-47-46 04:07:00<0.02[facility] VNLTCGHIOHWC9284-55-53 04:07:0013.5[facility] MsvxjwgBYRJVYGHIYRN4725-52-08 04:07:0079[facility] WaxtjlcUFVYTLLJKSLC6597-19-20 04:07:000.89[facility] LGDKONBYBYEI7173-91-55 04:07:009[facility] OnarrsdZBYKLSFBIJOE3762-46-10 04:07:00 72[facility] YyuawbiPNDAUDAKLOEJ3304-20-77 04:07:47872Pbllnmjv HermannELECTROLYTES 2016-04-14 04:07:0025[facility] DmmjbihEBSTKFXJQMDE3713-59-07 04:07:008.9[facility] UxrugyuIMYUZGDOVOUX4868-99-65 04:07:41195Jmhrrjot XiyicxgFUWLXMUEXYSX3944-90-94 04:07:003.5[facility] SdjhqpiXSYIVRCRMD8849-78-67 04:07:25334Ewevxhfs [facility] CRMOWYTCVV3966-73-31 04:07:008.5[facility] DwiajzzEONSQHCYGB4009-68-23 04:07:00 33.5[facility] RcrglabYIFYXTNSZV4878-80-26 04:07:00 Test Item Value Reference Range Interpretation Comments MCH (test code = MCH) 28.7 pg 27.0-31.0 [facility] BnrsblxSJKTFHKXCA7123-89-73 04:07:0015.0[facility]annHEMATOLOGY 2016-04-14 04:07:0038.3[facility] JahnoliTZTYBEMIHS5399-55-80 04:07:0085.6[facility] CapayhpVOWJEMSXDY5543-55-95 04:07:0012.9[facility] CyywkiyYNKLGSPPIW3931-47-23 04:07:004.48[facility] WemuwauUEXKIXCOPE4544-02-37 04:07:005.6[facility] LSUSMNDWZO3936-01-25 04:07:000.1[facility] XkthcnnTBAKOHQIQH0192-55-83 04:07:002.2 [facility] ZxwrcivSZGJXMKSAZ1105-52-63 04:07:000.3[facility]annHEMATOLOGY 2016-04-14 04:07:000.5[facility] RwplspjWWAXAPXAAU1868-13-56 04:07:006.1[facility] NbvlrogNIIJFKXVDL7557-58-85 04:07:001.1[facility] ZzhvwoiSNVWCFYOWL6711-98-23 04:07:002.5[facility] EpilqolCKAYDKKGVL6965-57-78 04:07:0038.8[facility] VLATYGCVMO5851-68-79 04:07:009.2[facility] DacllvyVLGRXCXZXC8422-43-32 04:07:00 44.8[facility] QnycsirADJUVWHYME4079-03-34 04:07:008[facility] HermannTOXICOLOGY 2016-04-14 04:07:000.008[facility]annCARDIAC ZHCISKP9493-90-09 11:47:00 <0.02[facility] AyuzzouLRCJER3346-46-61 11:47:003.39[facility] HermannLIPIDS 2016-03-12 11:47:0018[facility] HuociiaURZHGR7744-49-85 11:47:0073[facility] AMJLVD2093-68-44 11:47:0090[facility] BaotwyhORZHMD2906-72-43 11:47:46092Pnkdwccl GcalvteSHNMKH7752-46-48 11:47:0038[facility]annSPECIAL DQXBRQGLE3085-64-51 11:47:005.9[facility]annCARDIAC ITIIJWC5939-65-98 02:33:0081[facility] CARDIAC BTQLTBF8335-91-53 02:33:000.02[facility]annCARDIAC WOFROUL0851-22-97 02:33:001.6[facility]annCARDIAC PXJPGYQ9086-92-49 02:33:001.3[facility] TIGRJAXOKB5548-47-54 21:03:00 Test Item Value Reference Range Interpretation Comments PROTIME (test code = PROTIME) 14.0 s 12.0-14.7 [facility] NpdstesROXYDXLSWZ1081-33-71 21:03:001.05[facility]annHEMATOLOGY 2016-03-11 21:03:00 Test Item Value Reference Range Interpretation Comments aPTT (test code = aPTT) 38.7 s 22.9-35.8 [facility] TyifwwcIQJIVKCUNH4702-34-89 21:03:000.49[facility]annCARDIAC ENZYMES 2016-03-11 20:14:001.6[facility]annCARDIAC REZIDKP0179-39-69 20:14:001.3 [facility]annCARDIAC CVPKDSO8025-05-12 20:14:00<0.02[facility] CARDIAC BJCQTXS1303-11-33 20:14:0083[facility]annCARDIAC JJTFHFU0213-01-39 20:14:0050[facility] HermannCHEM IPKRS0878-50-33 20:14:38197Bufzgtva HermannCHEM HDAEG2796-51-44 20:14:73684Shpondza HermannCHEM ODENR3717-16-35 20:14:002.8 [facility]annCHEM DKAXA5104-69-40 20:14:001.2[facility] HermannCHEM PANEL 2016-03-11 20:14:0015[facility] HermannCHEM IBWVM9749-41-53 20:14:0010.4[facility] HermannCHEM PBQEU1642-96-96 20:14:0014[facility]annCHEM VQORK9437-80-53 20:14:006.1[facility] HermannCHEM CDPAK7645-90-50 20:14:000.5[facility] HermannCHEM ENUMZ4139-75-60 20:14:007.7[facility] HermannCHEM REVOB9812-98-46 20:14:0026 [facility]annCHEM AZAMB7198-67-63 20:14:36229Gcyerspu HermannCHEM PANEL 2016-03-11 20:14:003.4[facility] HermannCHEM VPBEX7458-85-51 20:14:31691Wmgupcdb HermannCHEM AFOFN9109-26-42 20:14:000.61[facility]annCHEM POXPN0627-77-63 20:14:009[facility]annCHEM IOLJT8565-25-92 20:14:0076[facility]annCHEM HQCQF2313-47-53 20:14:0088[facility]annCHEM VBILC2037-36-24 20:14:003.3 [facility]annCHEM HABRD1552-32-40 20:14:0015[facility]annHEMATOLOGY 2016-03-11 20:14:001.8[facility] VakiebsIYNAYIMLJM4486-71-85 20:14:000.5[facility] YdvqhhtBXCGMVDBRB1003-18-72 20:14:001.0[facility] SsxxkhkGTOREDCBCA2226-21-91 20:14:004.1[facility] HrfibrgTXHEHICUJX2293-30-58 20:14:000.2[facility] ARFVOMCCHV1670-66-34 20:14:000.1[facility] TvhxmqjHFBITFULKK1009-22-01 20:14:00 61.4[facility] VdsumoxNRAQRITLCH6835-29-25 20:14:003.5[facility] HermannHEMATOLOGY 2016-03-11 20:14:0026.6[facility] GlmummyEDBDHFUQLZ8842-62-23 20:14:007.5[facility] CersyvxVMJXMOENUZ0791-73-20 20:14:006.7[facility] VjxwusmAVZQXGTOMY3319-28-39 20:14:0012.2[facility] SsaefkqGSEKMZVYNE9038-77-74 20:14:004.26[facility] CUXACOMOJA2311-34-50 20:14:00 Test Item Value Reference Range Interpretation Comments MCH (test code = MCH) 28.7 pg 27.0-31.0 [facility] OlrltfkGCJHLVBGNG7962-17-28 20:14:0086.0[facility] HermannHEMATOLOGY 2016-03-11 20:14:0014.9[facility] YxahbwtVLSNKJGRAI4384-75-83 20:14:0033.3[facility] QrqsnwjUKVFOTMKYR6013-32-20 20:14:0036.6[facility] QeocvjqSBGCTGIMMO2747-67-48 20:14:008.7[facility] TuddftlMKYICXUBSR2869-60-55 20:14:27401Fnjrkpri HermannURINE AND PAPVM9048-30-50 20:14:00Negative (03/11/16 3:14 PM)[facility] TOKBX6305-68-44 20:14:00Negative (03/11/16 3:14 PM)[facility] FEFTG3890-08-29 20:14:00Negative (03/11/16 3:14 PM)[facility] PIEIE2689-41-83 20:14:000.2[facility] CVJTJ3500-30-33 20:14:00 Clear (03/11/16 3:14 PM)[facility] EFQRK4161-30-35 20:14:00 Negative (03/11/16 3:14 PM)[facility] YSJLW8750-93-25 20:14:00 <=1.005 *NA*(03/11/16 3:14 PM)[facility] EPMBD8614-73-26 20:14:00 Test Item Value Reference Range Interpretation Comments UA pH (test code = UA pH) 6.5 1 5.0-8.0 [facility] WLNHI7870-11-66 20:14:00Negative *NA*(03/11/16 3:14 PM) [facility] KDIPA9915-27-28 20:14:00Negative *NA*(03/11/16 3:14 PM) [facility] FFQGE4778-73-50 20:14:00Negative (03/11/16 3:14 PM) [facility] EEZVK5626-61-33 20:14:00Yellow *NA*(03/11/16 3:14 PM) [facility] AJHEO9672-64-87 00:22:00Yellow *NA*(02/29/16 7:22 PM) [facility] MQBVO9731-14-12 00:22:00 Test Item Value Reference Range Interpretation Comments UA pH (test code = UA pH) 6.0 1 5.0-8.0 [facility] JVBFJ8317-96-62 00:22:00Clear (02/29/16 7:22 PM)[facility] MUXAH4554-40-57 00:22:00 Test Item Value Reference Range Interpretation Comments UA Spec Grav (test code = UA Spec 1.015 1 Grav) [facility] BOKIC1747-50-94 00:22:00Trace *ABN*(02/29/16 7:22 PM) [facility] JIOBH9546-45-28 00:22:00None Seen (02/29/16 7:22 PM) [facility] ACAZO9065-53-78 00:22:00Negative (02/29/16 7:22 PM) [facility] SIPFF4558-74-57 00:22:001.0[facility] IXMWA1634-62-09 00:22:00Negative (02/29/16 7:22 PM)[facility] STOOL 2016-03-01 00:22:00Negative (02/29/16 7:22 PM)[facility] STOOL 2016-03-01 00:22:00Negative *NA*(02/29/16 7:22 PM)[facility] STOOL 2016-03-01 00:22:00Negative *NA*(02/29/16 7:22 PM)[facility] STOOL 2016-03-01 00:22:00Negative (02/29/16 7:22 PM)[facility]annCARDIAC ENZYMES 2016-02-29 23:14:00<0.02[facility]annCARDIAC HJXZVZQ9174-51-22 23:14:001.1 [facility]annCARD[facility]AC DOXNBLW1147-55-47 23:14:51261Huujdruc HermannCARDIAC PYLYVJP0379-24-88 23:14:007[facility]annCARDIAC VVUCUBC3276-08-98 23:14:000.8 [facility]annCHEM WWBCK4807-90-49 23:14:0080[facility]annCHEM PANEL 2016-02-29 23:14:0013[facility] HermannCHEM GEOUR7971-30-86 23:14:001.0[facility]annCHEM FPTRS5340-92-71 23:14:003.6[facility]annCHEM IENGT7961-53-29 23:14:009[facility]annCHEM CITEL1556-31-51 23:14:007.1[facility]annCHEM QDMTY3143-67-31 23:14:0010.0[facility]annCHEM VDVGC0431-80-31 23:14:99397 [facility]annCHE[facility] PRKIU3239-67-31 23:14:003.0[facility]annCHEM PANEL 2016-02-29 23:14:000.88[facility]annCHEM PEIXF9771-42-41 23:14:0030[facility]annCHEM KVIZC8841-92-47 23:14:000.6[facility]annCHEM SRSKM9557-20-14 23:14:008.7[facility]annCHEM TOUDG4189-77-34 23:14:89552Kpjvcsbc HermannCHEM XKLAE2480-78-63 23:14:0015[facility]annCHEM BMTQE0701-67-98 23:14:0088 [facility]annCHEM CSGBB0995-43-67 23:14:003.5[facility]annCHEM PANEL 2016-02-29 23:14:008[facility]annCHEM MVGEZ3648-34-28 23:14:0089[facility] PxvmlxuQIGWWWRUPH9027-78-79 23:14:00 Test Item Value Reference Range Interpretation Comments PROTIME (test code = PROTIME) 13.2 s 12.0-14.7 [facility] YqtkonyMNVDZWDKCZ8083-91-17 23:14:000.97[facility]annHEMATOLOGY 2016-02-29 23:14:0015.3[facility] OnpfoptDUCPUJBHZI8434-23-44 23:14:0032.9[facility] ByfjkulKGREJCIGVB3352-33-08 23:14:0043.8[facility] WutwnztEWEPHQOBZE3502-51-44 23:14:00 Test Item Value Reference Range Interpretation Comments MCH (test code = MCH) 28.1 pg 27.0-31.0 [facility] ZktqwttFVAAHCHGGX5843-62-93 23:14:0085.5[facility]annHEMATOLOGY 2016-02-29 23:14:005.3[facility] UipxhyiXDOCWLJUYV5864-20-78 23:14:0014.4[facility] SotsomcWSAFTTVKHR9602-78-61 23:14:005.12[facility] IlcaaibQIJRZZEYWT7192-98-80 23:14:51031Xgegrwgo ToaxkjmGYZQWXUSAT6128-59-71 23:14:008.1[facility] IIBYAATYKU9408-00-77 23:14:0057.2[facility] MygteufIWPNUAELFE5237-30-54 23:14:00 11.7[facility] BxxgpplGUZLXIIVEC2176-43-86 23:14:0024.1[facility]annHEMATOLOGY 2016-02-29 23:14:000.1[facility] OcgekjwNULWHDCRQJ9393-05-30 23:14:000.6[facility] JnqzhbgGTHXUKXYIU5883-91-44 23:14:001.3[facility] ObypjgnBGYEXSVVWQ8196-86-38 23:14:000.3[facility] OhqrsdgNWEMYBOBFW9197-96-70 23:14:003.0[facility] [place] UDKEAGBVEJ2166-03-94 23:14:005.9[facility] GgpztvaBCPXHPXDSS4474-69-82 23:14:001.1 [facility]annCARDIAC UIWLAEH0790-03-39 17:04:000.7[facility]annCARDIAC JOOESUR2900-06-25 17:04:000.7[facility]annCARDIAC LGDOUQS3130-31-25 17:04:00 <0.02[facility]annCARDIAC GMGWSVH8754-18-65 17:04:0097[facility] WLXJKLYJMMXL2615-51-57 17:04:0018.3[facility] IwgbxblUVTPGKJPNNEN6226-94-28 17:04:0078[facility] SaspsguJNNIRNFZDUXP9472-05-77 17:04:34173Udazfotn Maciej BXCSGYHFUKSY5232-89-10 17:04:0010[facility] NsyoodkRDSAKSLASFME9347-16-57 17:04:00 0.90[facility] PmjcuyhAXNXUZHDTUYD8421-21-96 17:04:0020[facility] YJIAPQRWOWLZ4450-02-80 17:04:009.4[facility] TihtquyPAFNKKQNRTSH5942-70-35 17:04:004.3[facility] IswcbrbDOXWFUNRWPVL0524-26-28 17:04:70977Jjhretnu [place] AQDXGBWHROQF5082-14-79 17:04:26282Ekwbmihy WjsfpawUOTPNKNQFK1129-80-46 17:04:00 9.6[facility] GtuwgonEYWMJZBVMJ4706-87-23 17:04:0041.4[facility]annHEMATOLOGY 2015-09-04 17:04:0013.1[facility] IicimkeCPRHSRCCUE1619-41-05 17:04:004.74[facility] QkfvjjhLUKSPIYXAR8787-12-43 17:04:0087.3[facility] LmgbosfVAAMFVXPKS5598-70-93 17:04:0031.5[facility] XoykwegTMFZNFROIL2833-38-92 17:04:00 Test Item Value Reference Range Interpretation Comments MCH (test code = MCH) 27.5 pg 27.0-31.0 [facility] AqezeasSGAZCZJFNR1009-63-12 17:04:008.7[facility] HermannHEMATOLOGY 2015-09-04 17:04:97004Croqsfqy SkvnluiCLRJUAOHNM6423-45-57 17:04:0014.4[facility] ZbszvszLDNUJKVUVZ9367-79-94 17:04:000.1[facility] CrsvbxsPSCJCYRDWM7135-74-33 17:04:000.5[facility] FdvqzlvYXBEESTQRK0056-22-01 17:04:00Normal (09/04/15 11:04 AM) [facility] BxfqeapWGUHTDKTHH8152-96-70 17:04:00Normal (09/04/15 11:04 AM)[facility] VziszbkTXRPETKGKB2238-65-29 17:04:0093.3[facility] RupeyedUNVXHJRHYF3988-76-76 17:04:000.2[facility] KaykvwbULOAFOEMJU7656-69-16 17:04:005.4[facility] OPCPLZAVWY4322-34-33 17:04:001.1[facility] EeoxaovPMOYGFMAYB9766-23-24 17:04:009.0 [facility] QycmrhvFLYKSV1615-94-22 17:04:0014[facility] DkffawmGGCFZL1665-10-92 17:04:34602Sbxdysqz UsnonngMVAWZU7286-38-18 17:04:0054[facility] HermannLIPIDS 2015-09-04 17:04:0071[facility] AwftltpDIKIQO9240-96-25 17:04:81119Sujllyja MyhfolfKIFSWG7424-07-89 17:04:003.67[facility]annCARDIAC DAURFXK0287-21-74 10:50:000.6[facility]annCARDIAC JZLDCYT1616-34-04 10:50:000.6[facility] [facility] CARDIAC GCMQURV7037-13-62 10:50:00<0.02[facility] ENZ[facility]ES 2015-09-04 10:50:26155Urxfwayp [facility]annCARD[facility]AC DXGAOSZ5155-98-58 04:33:81556 [facility] CSKTGCF7868-79-13 04:33:00<0.02[facility] CARDIAC VRNOZLA5115-58-74 04:33:000.8[facility] LBOPBYG7852-04-75 04:33:000.7[facility]annCHEM CEVXR8871-86-88 04:33:0087[facility]annCHEM HHONA4317-18-85 04:33:008[facility]annCHEM ONKAA9475-77-37 04:33:000.82 [facility]CHE[facility] QRXAQ5931-80-89 04:33:52882Aocuqsvj HermannCHEM PANEL 2015-09-04 04:33:53572Odsuiuxc [facility]annCHEM ZCXLP2178-72-80 04:33:003.9[facility]annCHEM ELSMW2421-56-48 04:33:72555Laveczwb [facility]annCHEM TQJMD0765-28-06 04:33:0013.9[facility]annCHEM JBDNE1578-51-13 04:33:009.2[facility]annCHEM WCZOX2655-52-72 04:33:0025[facility] FydpukuXEKNPRTMJA4293-07-71 04:33:007.4 [facility] GtbxoqiCUSHOWXFNR2490-39-47 04:33:0012.4[facility]annHEMATOLOGY 2015-09-04 04:33:004.57[facility] FnmbertQOVARJSOET3653-84-50 04:33:0039.4[facility] QghlswbORKEHXIRMY3959-82-54 04:33:0086.1[facility] NhexzxuMBLIGDZUYT7701-70-72 04:33:0014.7[facility] BndxljlHXUBTEENUP9496-50-49 04:33:0031.6[facility] NKWVPLZUBZ0243-26-56 04:33:00 Test Item Value Reference Range Interpretation Comments MCH (test code = MCH) 27.2 pg 27.0-31.0 [facility] HnsnflvHVNQEGRART4697-72-94 04:33:008.3[facility]annHEMATOLOGY 2015-09-04 04:33:16683Eervxaxo WgyjgfaAIMOMAKPTA2210-83-33 04:33:005.5[facility] UoqjopcKPGDBTBPSU8902-22-15 04:33:006.5[facility] FhvntznWGHTKQDQDJ0346-29-62 04:33:0031.7[facility] ApzlbbhASBLHACPKA7738-55-08 04:33:0055.0[facility] YSJLPVDEHS8431-02-40 04:33:000.5[facility] XswzlfkRAROPILODK0530-11-25 04:33:002.3 [facility] FpcrpivMKPQKDYMRP6239-48-67 04:33:004.0[facility]annHEMATOLOGY 2015-09-04 04:33:001.3[facility] JkvkaafKKVXRBRPAB4901-95-62 04:33:000.1[facility] LwkafkkXPSMYFJHMT7940-09-42 04:33:000.4[facility]annCARD[facility]AC UHRTJGI1965-59-57 10:25:00<0.02[facility]annC[facility]AC YADPUGC4711-46-06 10:25:0075[facility]annC[facility]AC XCAETXT5584-11-74 10:25:000.9[facility]annCARD[facility]AC ENZYMES 2015-07-16 10:25:001.2[facility]annCHEM QGIOE5398-18-21 10:25:40826Ttgpnvis HermannCHEM TWLBY8750-10-13 10:25:000.6[facility]annCHEM AMUQC2788-25-95 10:25:003.1[facility]annCHEM KOSAY8670-52-96 10:25:009.0[facility]annCHEM AYELL0842-60-14 10:25:006.3[facility]annCHEM CYAXK0039-62-64 10:25:0014 [facility]annCHE[facility] ZWTYB7083-01-90 10:25:0089[facility]annCHEM PANEL 2015-07-16 10:25:0019[facility]annCHE[facility] RTOEF1050-27-66 10:25:0025[facility]annCHE[facility] TRAMY3887-55-46 10:25:004.2[facility]annCHEM AFRRY9633-29-31 10:25:08791Taqhigao HermannCHEM FUMOE9439-60-57 10:25:0014[facility]annCHEM DHVCM4368-77-89 10:25:000.70[facility]annCHEM HHAZZ8394-50-21 10:25:12525 [facility]annCHE[facility] KXNKA8142-29-03 10:25:0078[facility]annCHEM PANEL 2015-07-16 10:25:0020[facility]annCHEM UYMLF3991-75-34 10:25:0010.2[facility]annCHEM KWMKD2101-20-41 10:25:001.0[facility]annCHEM HIMPC6580-04-01 10:25:003.2[facility] YevsnyjXMKMJMVVRK8522-46-10 10:25:008.6[facility] RXKXIBGLOJ8311-84-65 10:25:45963Syoeatye KarjgvpJVYJUVAHPD3101-57-54 10:25:00 14.3[facility] EqsrncwNIYICAVACO2466-79-05 10:25:004.53[facility]annHEMATOLOGY 2015-07-16 10:25:005.5[facility] SmvfbbwMYWJZTWLQQ1561-97-64 10:25:00 Test Item Value Reference Range Interpretation Comments MCH (test code = MCH) 27.9 pg 27.0-31.0 [facility] DbxmpycVUEGESQIED7397-24-03 10:25:0031.5[facility]annHEMATOLOGY 2015-07-16 10:25:0088.6[facility] SkdanbxFXAYLFCXKA5643-00-93 10:25:0040.2[facility] MxbszhfWTFNZHTORS6537-39-66 10:25:0012.6[facility] CdmuxjhWXONHMEYIE7513-60-68 10:25:000.2[facility] FjiadkmELZDRACWKN5415-29-05 10:25:002.0[facility] WVPYWWIUOK1691-23-61 10:25:000.9[facility] RqkdaweBWFQWMEMZQ6941-79-06 10:25:000.6 [facility] NjgkkgrPSWCRYEABW5053-21-83 10:25:002.6[facility]annHEMATOLOGY 2015-07-16 10:25:0011.0[facility] XbhssejFGQGEOODNY4906-04-90 10:25:004.0[facility] OmveifvMXVEOVZCLD8199-95-23 10:25:0036.1[facility] FvynchiQTVFPNRHHN4592-02-01 10:25:0048.0[facility] BajqgwqAVRSJLDRDY7447-94-37 10:25:000.1[facility] CARDIAC OCVIAOU6698-67-11 04:22:00<0.02[facility]annCARDIAC ENZYMES 2015-07-16 04:22:0088[facility]annCARD[facility]AC QPHPSXL2286-10-50 04:22:001.1 [facility] JGNWQET4853-73-80 04:22:001.0[facility]annCARDIAC CHCEAWK4276-65-78 21:33:00<0.02[facility]annCARDIAC MFFOCQV0182-87-98 21:33:001.2[facility]annCARDIAC IWCFKFX9374-26-46 21:33:29985Foetoshp [facility] CARDIAC GDSYQFG1548-29-17 21:33:001.2[facility]annCHEM GUEAT0775-45-64 21:33:0090[facility]annCHEM KSWKI4726-78-06 21:33:0091[facility]annCHEM MFECO1304-24-50 21:33:0019[facility]annCHEM VMMTG3935-00-50 21:33:0017 [facility]annCHE[facility] LMMEC0380-01-30 21:33:0012[facility]annCHEM PANEL 2015-07-15 21:33:000.8[facility]annCHEM LZJFH5193-31-58 21:33:0011.1[facility]annCHEM DBUAV8342-30-04 21:33:003.5[facility]annCHEM QYEDF1976-95-28 21:33:0027[facility]annCHEM QYDRJ0776-06-35 21:33:006.8[facility]annCHEM SDTZS8187-58-98 21:33:008.7[facility]annCHEM SMAWK2191-85-31 21:33:003.3 [facility]annCHE[facility] MYJTP3746-13-04 21:33:001.1[facility]annCHEM PANEL 2015-07-15 21:33:000.80[facility]annCHEM KLNXL9862-07-93 21:33:82040Zrbnidpd HermannCHEM CTZRW2709-78-50 21:33:90053Ftkwlovb HermannCHEM OVGRE1239-00-81 21:33:004.1[facility]annCHEM GAWQN2654-82-44 21:33:0010[facility]annCHEM QRBFE9862-39-18 21:33:0072[facility] WltevbvARFZSMJBFT3606-97-75 21:33:003.3 [facility] IjvpzuuKGODAHQPOI3867-57-58 21:33:000.2[facility] HermannHEMATOLOGY 2015-07-15 21:33:000.6[facility] GsjeltpDDRBHHDESE1020-77-25 21:33:002.3[facility] PufewgeTPZEJIMGZJ2161-57-14 21:33:0051.8[facility] MqaklohYOMZCVAXZL4210-72-02 21:33:000.6[facility] PegecqjCZXCZGQARK8574-98-14 21:33:003.1[facility] MNZKKUFHXU6171-90-19 21:33:009.4[facility] AwyahdpHNWBZDPFSL1456-78-95 21:33:00 35.1[facility] LfmlomlGXHAKHZKWG0154-59-45 21:33:000.0[facility]annHEMATOLOGY 2015-07-15 21:33:009.1[facility] BxpsrhxPSJISFMVMX2096-68-68 21:33:0087.6[facility] VvdoqvdCIJVSJRCFB7217-10-58 21:33:0012.9[facility] OullbisUZRPEAYCLV0617-84-95 21:33:0039.8[facility] XbfumpuYZZITUXJQC3996-15-61 21:33:0032.3[facility] XKSZGVBERM1942-80-70 21:33:0014.8[facility] BrmcidsDQXLHEYIDA7891-92-72 21:33:00 Test Item Value Reference Range Interpretation Comments MCH (test code = MCH) 28.3 pg 27.0-31.0 [facility] FokinbfPRQUMTTVSN4822-60-47 21:33:94505Nffjiemx HermannHEMATOLOGY 2015-07-15 21:33:004.54[facility] OgyftsjEHOBHIOPAJ9322-60-94 21:33:006.4[facility] WmdieclJIMWGUDOZP1549-59-02 19:18:00Negative (05/18/15 2:18 PM)[facility] CARDIAC PETXEXE0171-02-98 18:26:00<0.02[facility] HermannCHEM KWHGL6537-46-33 18:26:000.1[facility]annCHEM LBEGN2234-24-28 18:26:003.9[facility]annCHEM DUPFQ1200-15-07 18:26:25947Kgbousks HermannCHEM VLLKY9968-81-16 18:26:000.5 [facility]annCHEM BKINY8312-96-72 18:26:0022[facility]annCHEM PANEL 2015-05-18 18:26:0018[facility]annCHEM VXQAB0218-58-44 18:26:007.9[facility]annCHEM MCHAJ4486-82-98 18:26:004.0[facility]annCHEM SHSKI5815-83-48 18:26:000.4[facility]annCHEM FLQDJ3392-96-21 18:26:001.0[facility]annCHEM LLRVA9531-68-66 18:26:50697Lxlhffjq HermannCHEM GIGWS9521-33-31 18:26:0078 [facility]annCHEM HQFOL6993-11-90 18:26:70461Fwlcxgyj HermannCHEM PANEL 2015-05-18 18:26:003.9[facility]annCHEM RENYB9044-80-73 18:26:000.9[facility]annCHEM MMATX8337-80-82 18:26:0087[facility]annCHEM YVEWP7774-17-12 18:26:007[facility]annCHEM AVKQT0756-82-07 18:26:08096Frgxkouh HermannCHEM CCLUC7474-69-78 18:26:0028[facility]annCHEM XTAVR4993-38-85 18:26:0010.2 [facility]annCHE[facility] HLDRL8370-35-67 18:26:0010.9[facility]annHEMATOLOGY 2015-05-18 18:26:0014.2[facility] RzeggxpFETMIVXMIF1809-95-45 18:26:004.96[facility] ZtvmxxnMWAKLNEGGF5587-74-67 18:26:00 Test Item Value Reference Range Interpretation Comments MCH (test code = MCH) 28.7 pg 27.0-31.0 [facility] QgbyxzeXLHXEQGLBH0572-37-82 18:26:0032.9[facility] HermannHEMATOLOGY 2015-05-18 18:26:0043.3[facility] GfmjmrlXVWFEVDFVO5839-41-72 18:26:0087.2[facility] CyjczgnBJFQLGTTXX5529-97-53 18:26:006.8[facility] AaenrswXETIPGAHNU4550-29-66 18:26:33985Rjrtofsi JxoojdpVDYNXJVKFT7352-50-15 18:26:008.2[facility] ZNQMCIUDKL7375-48-58 18:26:0014.5[facility] QubxkxvTZAWENRQDX5463-96-07 18:26:00 55.6[facility] XtkuhvkXGVEZMYIFN3395-64-84 18:26:0032.7[facility]annHEMATOLOGY 2015-05-18 18:26:008.5[facility] VxoflemMWCQGONUBB4447-02-93 18:26:003.8[facility] JlqmqgnNIATOXJUGB0404-00-87 18:26:000.6[facility] VukankhKRQXVWVGFG2504-16-17 18:26:002.2[facility] ByhnpoaHTDEVOROBC6662-31-86 18:26:002.6[facility] CPLZKWPJWO1925-98-07 18:26:000.2[facility] CmyjoxjLJWJKXVXDW5517-55-58 18:26:000.6 [facility] IzmyhrdEHKTQNLERA7562-30-10 18:26:00Positive *NA*(05/18/15 1:26 PM) [facility] ZrswnxeMGJYYNJXFA3768-76-05 18:26:76323196Odednlxj HermannIMMUNOLOGY 2015-05-18 18:26:005.5[facility]annCARDIAC ZITJSYK7565-02-68 18:51:00<0.02 [facility]annCHEM IXMBG1078-44-86 18:51:0090[facility] HermannCHEM PANEL 2015-05-09 18:51:0028[facility] HermannCHEM OTNPJ9713-56-59 18:51:009.6[facility]annCHEM BBGDM7921-15-48 18:51:56618Yjmqxfrn HermannCHEM XVJAH2674-34-84 18:51:000.8[facility]annCHEM GNVFW2492-02-90 18:51:88099Yhoifbkd HermannCHEM EHPBL2536-33-29 18:51:003.7[facility]annCHEM KRFYZ1555-73-80 18:51:73425 [facility]annCHEM BRJQW1554-23-20 18:51:007[facility] HermannCHEM PANEL 2015-05-09 18:51:009.7[facility] AeplpidTSDZCGATBM4347-29-89 18:51:0014.4[facility] HprmublHUMRDPBAMI3707-12-62 18:51:0032.5[facility] VsktfmvYVSKXBLXVY3524-60-79 18:51:00 Test Item Value Reference Range Interpretation Comments MCH (test code = MCH) 28.7 pg 27.0-31.0 [facility] ZiqbiurBATTPPMYHV0433-23-14 18:51:12614Kvvpvdks HermannHEMATOLOGY 2015-05-09 18:51:007.6[facility] KezemjrRUFOFGSHDC5443-77-39 18:51:0088.2[facility] HmxdhyiIDVAWUFHKN2296-91-19 18:51:0041.9[facility] HwqowzpPCSJSXQVIL5648-07-30 18:51:004.75[facility] SctiitmSVHKFOXKPP3518-29-72 18:51:0013.6[facility] ZYASTVIBJG0517-91-32 18:51:005.6[facility] GzltjxwTRKYTWBJSN1625-03-54 18:51:002.1 [facility] IydmaovZLRZIEDKMU8077-74-76 18:51:000.1[facility]annHEMATOLOGY 2015-05-09 18:51:000.2[facility] GjqnhtrYZLGGJNRZG8693-03-30 18:51:000.4[facility] LhmcotqJQGOFHBLPO5741-83-16 18:51:0050.8[facility] SqcnpryMLSUJYFIJD6585-14-65 18:51:002.8[facility] VknojwuGQLEXNZHXG3678-86-57 18:51:002.9[facility] MIHCEEGTSQ3360-11-26 18:51:001.1[facility] MwywizbJSERTKNKTD7745-81-76 18:51:007.7 [facility] JeszhpiCNSZKFKHWF9814-55-78 18:51:0037.6[facility] HermannCARDIAC ENZYMES 2015-05-02 22:03:00<0.02[facility]annCHEM QIUDK3535-62-99 22:03:003.2 [facility]annCHEM UWNKI1705-16-25 22:03:002.1[facility] HermannELECTROLYTES 2015-05-02 22:03:0012.4[facility] AlcyvriLVLZJFEJBHTO9499-52-44 22:03:0068[facility] TglqxsjQPDNBTTDDHCW0788-77-58 22:03:51465Nffwnrsk MtkgbkwFJACFEIBPHDT3720-57-96 22:03:07700Uwwiuolg KyrlabaZPEIVGFXBPUY5819-49-80 22:03:0028[facility] VDTWJEZSUWCO8788-64-00 22:03:008.8[facility] HdesyddLGBGNOKBFSPY1331-70-24 22:03:003.4[facility] RguuqwtWETSUKXCDTFW1022-61-56 22:03:000.9[facility] ZYVQAZOFZJEZ6361-29-03 22:03:0092[facility] FlobkafXKBFAVGHJXKX3420-04-88 22:03:00 6[facility] EbgvyfpMTGWOZWMFS6795-92-65 22:03:008.0[facility]annHEMATOLOGY 2015-05-02 22:03:0014.1[facility] OzubetnMZHNEMOQFQ3393-08-29 22:03:53465Zcjtexqo BzrbsynBJZZOLQGDN5693-37-47 22:03:0032.6[facility] XtqhalmYPVUBQFZAA1451-83-18 22:03:008.0[facility] KtepszfCNSVDZTDHI0457-28-17 22:03:0040.2[facility] KJZCJARJPS2724-97-29 22:03:0087.4[facility] ZhccquwQFIQRUOAFP1193-36-45 22:03:00 13.1[facility] NtqsiigKIJOWCMWMU5475-99-43 22:03:004.60[facility]annHEMATOLOGY 2015-05-02 22:03:00 Test Item Value Reference Range Interpretation Comments MCH (test code = MCH) 28.5 pg 27.0-31.0 [facility] WnmtyhsQSLKWHJGWH6378-06-72 22:03:0026.3[facility]annHEMATOLOGY 2015-05-02 22:03:0060.9[facility] NfaytgaERFYFCCBBV9120-56-65 22:03:001.0[facility] IawcjikMZIRKVCMVC7539-67-41 22:03:003.0[facility] ShqsaklRGQZNTBSZP6102-25-96 22:03:008.8[facility] ZrovjrnPFDPBKKNTJ8223-61-55 22:03:000.7[facility] JDREKBPAOE1498-88-02 22:03:000.2[facility] VvedvckUKYKZCECHV8059-13-63 22:03:002.1 [facility] TavixjfTJSEQZNBFW8848-75-89 22:03:004.9[facility]annHEMATOLOGY 2015-05-02 22:03:000.1[facility] AND QBTXV5553-52-54 21:38:00Negative (05/02/15 4:38 PM)[facility] SOWKM6788-56-02 21:38:00Moderate *ABN*(05/02/15 4:38 PM)[facility] CRMRF3040-11-29 21:38:00None Seen (05/02/15 4:38 PM)[facility] MCYBZ3223-73-51 21:38:00None Seen (05/02/15 4:38 PM)[facility] ATIND7790-41-59 21:38:00Negative (05/02/15 4:38 PM)[facility] FYCDZ3839-62-61 21:38:00Negative *NA*(05/02/15 4:38 PM)[facility] ZUJBO5548-63-03 21:38:000.2 [facility] QQVXN0931-52-14 21:38:00Negative (05/02/15 4:38 PM) [facility] DCVDZ3862-71-66 21:38:00Negative *NA*(05/02/15 4:38 PM) [facility] OKFXT7358-51-92 21:38:00Yellow *NA*(05/02/15 4:38 PM) [facility] VTKSP9017-04-85 21:38:00 Test Item Value Reference Range Interpretation Comments UA pH (test code = UA pH) 6.0 1 5.0-8.0 [facility] KIGHF2334-64-98 21:38:00Slight Cloudy (05/02/15 4:38 PM) [facility] DXPRW8640-60-41 21:38:00Negative (05/02/15 4:38 PM) [facility] PRAOK2970-12-10 21:38:00 Test Item Value Reference Range Interpretation Comments UA Spec Grav (test code = UA Spec 1.006 1 Grav) [facility]annCHEM QBAVD3791-43-46 09:28:93324Owfylivj HermannCHEM PANEL 2015-03-24 09:28:98935Gqtcpvxy [facility]annCHEM LYTBI7119-49-19 09:28:000.7[facility]annCHEM AUHDA3963-45-41 09:28:004[facility]annCHEM DGKQA5408-58-95 09:28:003.2[facility]annCHEM DCKRC2457-27-76 09:28:47359Loprcyxv HermannCHEM JIKPN2150-77-91 09:28:0091[facility]annCHEM EYXBV3655-82-49 09:28:003.5 [facility]annCHE[facility] URUMF5520-36-40 09:28:006.6[facility]annCHEM PANEL 2015-03-24 09:28:35081Wzzwrzpa HermannCHEM PBEMF9389-24-09 09:28:009.1[facility]annCHEM QICWL6656-69-22 09:28:0027[facility]annCHEM SSYPX7592-74-33 09:28:0011.2[facility]annCHEM SIVEE4184-43-28 09:28:0021[facility]annCHEM WDRHN0762-95-91 09:28:0034[facility]annCHEM CCAJI7360-80-80 09:28:000.6 [facility]annCHEM EMPTE4605-25-08 09:28:0095[facility]annCHEM PANEL 2015-03-24 09:28:006[facility]annCHEM NMXNM5674-75-26 09:28:001.1[facility]annCHEM WMHTO0431-00-77 09:28:003.1[facility] XpcnlefEMMGTCCCSE4119-98-85 09:28:0011.3[facility] TkdmzpmHJRPRKZTDM4545-40-67 09:28:0027.1[facility] YZKQTKCNZB0513-37-88 09:28:005.9[facility] NeivbdtHMZUZOYMJO4112-96-74 09:28:003.3 [facility] HsdrsdhAJBLOZQAKG3980-04-63 09:28:000.7[facility] HermannHEMATOLOGY 2015-03-24 09:28:0055.0[facility] BbzppumHXZUAEQWKA3616-04-22 09:28:000.7[facility] UpsduxgUUQNRORZEE9915-33-86 09:28:001.6[facility] NwmvtdmXLHNINWCKS7914-18-86 09:28:000.4[facility] IznsuvlZRANHMJOIA8760-84-36 09:28:004.21[facility] JZUZGZWHYY2411-82-91 09:28:005.9[facility] WygpsigCLZTSORMMN5468-11-61 09:28:71612 [facility] NoyqgeaHNGZQTJVTJ5393-58-26 09:28:0032.4[facility] HermannHEMATOLOGY 2015-03-24 09:28:0014.2[facility] EpasekfHJXLYTKHEJ3817-34-74 09:28:008.6[facility] JxyaovlBQOLEIXJUT2388-74-33 09:28:0037.2[facility] YofuxclXUOPRYKPPY1424-79-24 09:28:0088.3[facility] QdsjuvuDJSIGFRXXL4692-22-41 09:28:0012.1[facility] ATKMQUIFBB5790-65-65 09:28:00 Test Item Value Reference Range Interpretation Comments MCH (test code = MCH) 28.6 pg 27.0-31.0 [facility] LLKZL8925-70-49 18:14:00Negative (03/23/15 1:14 PM) [facility]annCARDIAC TAAQFUW2438-90-75 10:51:000.8[facility]annCARDIAC UWRGQQT6004-59-36 10:51:0070[facility]annCARDIAC MSOPFYJ0150-92-67 10:51:00 1.1[facility] HermannCHEM ERIXA4856-96-71 10:51:29356Smpjfqvm HermannCHEM PANEL 2015-03-23 10:51:0027[facility]annCHEM HQCGB9104-56-32 10:51:009.2[facility]annCHEM YDCBV4898-75-61 10:51:80831Bzxefckt HermannCHEM EYAGM7200-65-69 10:51:80406Hwrbfzyh HermannCHEM AESFN2827-09-81 10:51:003.5[facility]annCHEM IBKEU4015-75-48 10:51:000.7[facility]annCHEM FZHWC8389-18-50 10:51:008 [facility]annCHEM YKBVL5539-90-31 10:51:77038Kbecrpmy HermannCHEM PANEL 2015-03-23 10:51:0010.5[facility] AdjpsxfDASKKBUXMV4761-27-72 10:51:001.3[facility] ZbcmwztMNUJIWISYG3254-02-50 10:51:003.4[facility] XdeytmlKUNBUHCSWE5118-57-55 10:51:000.6[facility] DlvsmwjMSSDQSKOEY8702-86-43 10:51:004.0[facility] ZHWCLROZAG2388-88-90 10:51:000.2[facility] GzouwmqBXDAKMBOYG1527-58-68 10:51:000.6 [facility] WdkthbhDWKRMZMBLX9068-52-55 10:51:0011.0[facility] HermannHEMATOLOGY 2015-03-23 10:51:0023.6[facility] QxiirbkUNLHGITUKN2172-64-72 10:51:0060.8[facility] NgbhfdnZZNLKSFTWQ4606-49-57 10:51:008.3[facility] DptapuuXRETMUWERE0913-95-29 10:51:74058Sqikshdn GhjstaqUHIKKDKOMW0623-85-47 10:51:0014.6[facility] LBCDAOXRDC5300-57-77 10:51:0088.0[facility] BlsmarjOQYVNXHWLZ3238-63-91 10:51:00 Test Item Value Reference Range Interpretation Comments MCH (test code = MCH) 28.7 pg 27.0-31.0 [facility] OmbiyxmFPRXGDBHTL2569-76-76 10:51:0034.7[facility] HermannHEMATOLOGY 2015-03-23 10:51:0032.6[facility] UguwvzlWWUSWDMTSV7215-33-75 10:51:0011.3[facility] KlpfngaNFZIVIXHOA8791-14-55 10:51:003.94[facility] WjgzjkgHRSZNOZCMP3209-16-09 10:51:005.6[facility]annCARDIAC XLECJAE1864-25-77 10:19:001.6[facility] CARDIAC XHMTLJM1850-15-62 10:19:001.0[facility]annCARD[facility]AC JKMBANB0508-99-05 10:19:0064[facility] HermannCHEM DEJWZ0576-06-09 10:19:70608Rbkdqmlt HermannCHEM NELKK1369-01-76 10:19:008.7[facility]annCHEM ZZQWM0495-10-92 10:19:71362 [facility]annCHEM EYZJC4905-24-02 10:19:003.9[facility]annCHEM PANEL 2015-03-22 10:19:42492Ctxvvlix HermannCHEM FKCGD0427-87-74 10:19:0027[facility]annCHEM LLPAQ0109-89-06 10:19:0094[facility]annCHEM HVTYO7423-92-21 10:19:008[facility]annCHEM JGQWZ1006-55-76 10:19:000.6[facility]annCHEM VPXPR6411-30-96 10:19:008.9[facility] MkaeuiyIHTHHISFEJ1656-14-65 10:19:000.2 [facility] JrxcjizGKQJERFYSI4740-21-92 10:19:000.5[facility] HermannHEMATOLOGY 2015-03-22 10:19:000.9[facility] XkfppavIRTZDIZWXG9464-63-97 10:19:0011.2[facility] MlkvvivWMWSREUHXO7683-54-65 10:19:002.1[facility] FgydakbEJRKXUHLHI9962-16-84 10:19:003.7[facility] RrzunypTNQBEEPXHR9463-20-61 10:19:001.6[facility] HFMVROWPWZ4509-33-57 10:19:0048.6[facility] LzxbvadUNSYLKFOHN2984-94-47 10:19:00 35.[facility] LwdtboxUCUXAWWOME5178-03-49 10:19:008.9[facility]annHEMATOLOGY 2015-03-22 10:19:004.4[facility] CeukcbsVJSUCTGGRF0146-93-07 10:19:00 Test Item Value Reference Range Interpretation Comments MCH (test code = MCH) 29.9 pg 27.0-31.0 [facility] DrpozlxEXMGZBKDEF2884-69-31 10:19:0086.5[facility] HermannHEMATOLOGY 2015-03-22 10:19:0034.6[facility] VzmcdlwDIKLSSBXZI1782-87-55 10:19:0011.7[facility] HzqcchfXUEEWDHICP7870-25-37 10:19:003.92[facility] BrfaaztOLRSNYCPGA0271-15-89 10:19:0033.9[facility] GjskjcbUYPBUFTRTI6140-73-48 10:19:0014.6[facility] TAZTFWQTWL8786-79-81 10:19:70210Itwianak HermannCARDIAC KLKFIED7913-48-15 03:22:001.6[facility]annCARDIAC WQCHXNE1867-38-52 03:22:0077[facility] CARDIAC BEOQWZP1583-05-55 03:22:001.2[facility] HermannCHEM URUCM8459-51-19 02:44:001.4[facility]annCARDIAC NXABOVB3779-60-68 21:13:00<0.02[facility]annCHEM VHHQU2937-30-13 21:13:003.3[facility]annCHEM ELLIE0924-00-63 21:13:001.1[facility]annCHEM VQVYD3237-75-27 21:13:0016[facility]annCHEM UVOPU7872-67-66 21:13:44382Gstismll HermannCHEM EBNUI9754-86-77 21:13:0025 [facility]annCHEM EALLQ1882-24-89 21:13:000.5[facility]annCHEM PANEL 2015-03-21 21:13:0032[facility]annCHEM NDPOY5906-91-28 21:13:003.7[facility]annCHEM TRARC6128-51-48 21:13:007.0[facility] NhykisrIDGGGDAKMX4795-05-99 21:13:000.0[facility] CeqgyveWIWSWRHJJB7047-55-11 21:13:001.04[facility] LCOJCBHYOD2530-44-40 21:13:00 Test Item Value Reference Range Interpretation Comments PT (test code = PT) 13.6 s 12.0-14.7 [facility] UqxbtspBJYRDBXCNI5916-24-48 21:13:00 Test Item Value Reference Range Interpretation Comments PTT (test code = PTT) 35.2 s 22.9-35.8 [facility]annCARDIAC PHBXFUW9213-10-23 21:10:006[facility]annCARDIAC XNGFMGS4399-53-27 21:02:00<0.02[facility]annCARDIAC OUNBXHQ3229-23-58 21:02:0031[facility]annCARDIAC SPOCWKW2027-04-85 21:02:000.8[facility] CARDIAC PVOFBWN4630-11-87 21:02:0070[facility]annCARDIAC UQMNMSV3406-35-95 21:02:001.1[facility] HermannCHEM ANNFZ6536-43-75 21:02:54714Cjpjrsii HermannCHEM OQCVA5869-60-97 21:02:0099[facility]annCHEM DSNEZ7762-43-18 21:02:000.6 [facility]annCHEM VLKLL3083-14-85 21:02:0011[facility]annCHEM PANEL 2015-03-11 21:02:009.4[facility] HermannCHEM QRSYU7909-65-15 21:02:003.1[facility]annCHEM NQMVZ3849-89-87 21:02:001.1[facility]annCHEM PVZYP0890-48-18 21:02:0073[facility]annCHEM TUUTT2738-97-85 21:02:008[facility]annCHEM HHYGF2641-63-23 21:02:000.7[facility]annCHEM AQZDF0885-67-17 21:02:24076 [facility]annCHEM JNQPH9776-80-93 21:02:003.4[facility] HermannCHEM PANEL 2015-03-11 21:02:0028[facility] HermannCHEM ODCDJ6120-76-24 21:02:01928Ugyjmqdg HermannCHEM KKMHC8281-33-56 21:02:008.9[facility] HermannCHEM RMBRA8326-31-66 21:02:006.5[facility]annCHEM GQJTB2624-31-65 21:02:003.4[facility]annCHEM LXFIC4765-32-17 21:02:0030[facility]annCHEM RLZZN8752-20-53 21:02:0021 [facility] EjytwhjDKEEVZUFIN2566-05-15 21:02:0015.1[facility] HermannHEMATOLOGY 2015-03-11 21:02:0033.1[facility] LgymhkrWSCZLASNSR7114-03-40 21:02:98365Thzamgry LufwhawMIBUEUBODE4824-80-45 21:02:008.1[facility] AgvutlgWGOTYLLZFK9021-07-56 21:02:0034.6[facility] XdhhrexSALEVCZWPY7048-29-59 21:02:0011.5[facility] DTGXBGEEVE2775-60-43 21:02:00 Test Item Value Reference Range Interpretation Comments MCH (test code = MCH) 28.8 pg 27.0-31.0 [facility] OishoevQZSTCZJEVG2652-87-35 21:02:0086.9[facility] HermannHEMATOLOGY 2015-03-11 21:02:003.98[facility] JwtudmxDKXMIEETEU0965-92-42 21:02:006.5[facility] RcvjieyHCZMCPNBOT3510-74-71 21:02:00 Test Item Value Reference Range Interpretation Comments PTT (test code = PTT) 32.8 s 22.9-35.8 [facility] QowpnfzNMOOZRTWGP1607-86-82 21:02:00 Test Item Value Reference Range Interpretation Comments PT (test code = PT) 13.3 s 12.0-14.7 [facility] MndtworCQXNBAEPAC8545-64-89 21:02:001.01[facility] HermannHEMATOLOGY 2015-03-11 21:02:000.0[facility] UvltqmyVXEJHUEKIL6292-14-81 21:02:003.7[facility] EpbsnkoJBMDIKHKYC0037-95-43 21:02:000.2[facility] ElzwwqeFYSYTCVNNV1292-88-70 21:02:000.6[facility] UshxsnnONJHXFUYKS3832-77-64 21:02:001.9[facility] HBJILZCNTA5585-03-17 21:02:0056.9[facility] NydsjdoKNEKUCSENR4699-70-80 21:02:00 2.7[facility] SowshdlTBHRAVOZTR1336-68-03 21:02:000.4[facility] HermannHEMATOLOGY 2015-03-11 21:02:009.9[facility] RzwuqreYARMTGCUMX1256-70-96 21:02:0030.1[facility] HermannCARDIAC WOBWPLZ7487-33-48 09:33:00<0.02[facility]annCARDIAC ENZYMES 2015-03-05 06:16:00<0.02[facility] HermannCHEM VRVFZ4795-11-32 06:16:001.1 [facility]annCHEM FNRXL8327-82-80 06:16:003.5[facility] HermannCHEM PANEL 2015-03-05 06:16:000.5[facility] HermannCHEM NKZFY5802-35-19 06:16:000.1[facility] HermannCHEM OVDEN4660-30-78 06:16:0025[facility]annCHEM ADDWP3136-28-48 06:16:0021[facility] HermannCHEM GOSGO2891-71-02 06:16:003.7[facility] HermannCHEM POBIB6780-91-28 06:16:89949Svkwtqja HermannCHEM RSIDT3720-29-44 06:16:000.6 [facility]annCHEM EXPTO1953-47-05 06:16:007.2[facility] HermannCHEM PANEL 2015-03-05 06:16:03445Aczreoky RkoavtlIJSWYRPEIEGD3789-15-71 06:16:0012.6 [facility] ZgrcsseCJCCMSETEVBE4180-76-43 06:16:0078[facility] HermannELECTROLYTES 2015-03-05 06:16:009.6[facility] MjzfnpuYFWGARCDGVGI4628-92-26 06:16:0029[facility] UbwlvvoVOVDMYWXOSSS7046-06-48 06:16:003.6[facility] KdfmdgcDGYXHUOXHPZB6588-12-99 06:16:07760Uqxalqpl TpyviukDRSPFUJEGRUM6162-56-57 06:16:28045Cjglxhqk [facility] ZXIUOXVOBSED7106-52-36 06:16:000.8[facility] XovlzslYAMLZVZNJICH9709-89-75 06:16:009[facility] SkkbuftIHDNXWPUGPMC1015-49-53 06:16:0096[facility] GKRVQMPCKA2636-88-76 06:16:002.6[facility] PnemstcNTUMTKEAQH3817-55-37 06:16:000.9 [facility] TfsblmaXPRROTGCJG5584-03-94 06:16:000.7[facility] HermannHEMATOLOGY 2015-03-05 06:16:001.7[facility] LknxixfKTRVIQNTXW5147-70-74 06:16:006.7[facility] MqjvntmWUQEHKSEFY2436-79-51 06:16:0025.0[facility] OlneboqSXJJSCRWIA5082-51-79 06:16:0064.3[facility] AdiofloNPVCDIKDOC8619-68-52 06:16:008.3[facility] [place] THLMISFLJL3330-89-86 06:16:000.2[facility] TszbyrfSSXSNXYJSC6463-60-81 06:16:000.1 [facility] HroilxyMEOMSHZDTP7204-61-65 06:16:0087.7[facility] HermannHEMATOLOGY 2015-03-05 06:16:0039.7[facility] OuqgrbpWROBLCHXWL9687-13-43 06:16:008.0[facility] JdzjznjABFMTSFWMD7862-27-92 06:16:36365Irfiiwiy ZjobrgfSPAKFVPDJL7079-18-64 06:16:0014.6[facility] RxuwinfECKRJMHPSD0503-65-04 06:16:0032.4[facility] [place] OLNVBBCKGL4882-13-89 06:16:00 Test Item Value Reference Range Interpretation Comments MCH (test code = MCH) 28.4 pg 27.0-31.0 [facility] HiqdfmdQCHJOOCLLX2471-53-44 06:16:0010.5[facility]annHEMATOLOGY 2015-03-05 06:16:004.53[facility] SecovafXLDGGAWAMK7975-72-27 06:16:0012.9[facility] HermannCHEM IFCQG3787-37-92 09:16:002.0[facility] HermannCHEM AKXKL4966-35-33 09:16:003.6[facility] HermannCHEM PHDCB3013-20-72 09:16:83207Udxwhzox HermannCHEM XZYQZ0464-67-95 09:16:0017[facility]annCHEM STRJM7089-23-00 09:16:003.3 [facility]annCHEM JIQMB3788-90-86 09:16:001.1[facility]annCHEM PANEL 2015-02-25 09:16:006.3[facility]annCHEM BGLFE0288-28-22 09:16:0021[facility]annCHEM XFAND0244-40-52 09:16:003.0[facility]annCHEM XBDAM8377-76-47 09:16:000.5[facility]annCHEM HLMPF1662-66-49 09:16:68644Wcygkgyp HermannCHEM BQUUN9596-28-71 09:16:0011[facility]annCHEM IFAFJ1068-77-89 09:16:009.1 [facility]annCHEM XPRRT4261-34-28 09:16:0099[facility]annCHEM PANEL 2015-02-25 09:16:008[facility]annCHEM ERIUT5378-06-30 09:16:15195Zptfjbmc HermannCHEM BVABD8830-14-74 09:16:000.7[facility] HermannCHEM VEEMV3288-37-54 09:16:008.9[facility]annCHEM XBEPS6363-10-47 09:16:90512Xftzjkha HermannCHEM XQYKM7513-35-98 09:16:0028[facility]annCHEM LKQRS9397-51-55 09:16:003.9 [facility] HdyfwliXZTAUJYIHW4908-10-32 09:16:21589Bsuilvcx HermannHEMATOLOGY 2015-02-25 09:16:008.8[facility] LyczrvlOHZTLYPTZD4340-13-22 09:16:0014.9[facility] LyxlnjsRIDPHMUWSF4279-84-39 09:16:005.9[facility] VdqdtgmFAOESAQYTL4193-54-41 09:16:0088.4[facility] WrkwhtaSMEFGZELQB3767-51-40 09:16:0037.2[facility] TYRRQRKGXG7888-76-98 09:16:00 Test Item Value Reference Range Interpretation Comments MCH (test code = MCH) 28.6 pg 27.0-31.0 [facility] BpwfcehVPOKOSANIS3561-16-38 09:16:0032.4[facility] HermannHEMATOLOGY 2015-02-25 09:16:004.21[facility] SvdqrakMNYHHOFMJJ9633-97-37 09:16:0012.0[facility] AudqrmfGRFPTYOXMF4113-30-44 09:16:0031.9[facility] OaxgwyoPBGQSUTQFG5118-49-00 09:16:000.8[facility] IpsxwylTFFVKLDVPX6379-65-18 09:16:003.1[facility] OUCJYHMAHD8274-31-72 09:16:0011.6[facility] TgddtxmAKNWKLSHNX7766-44-79 09:16:00 2.9[facility] VipbpwlYYFWVSSIJD8201-95-07 09:16:0052.8[facility] HermannHEMATOLOGY 2015-02-25 09:16:000.7[facility] BwjzqghZUMUZTPSSE0777-70-07 09:16:001.9[facility] QdpnsmkIQFJGUBPOU9309-37-30 09:16:000.2[facility] HermannCARDIAC XZHLBLM8147-82-88 04:30:0074[facility]annCARDIAC XIPYDBO8039-99-45 04:30:001.2[facility] [place] CARDIAC JOUXUIX0468-59-31 04:30:00<0.02[facility] HermannCARDIAC ENZYMES 2015-02-25 04:30:000.9[facility]annCARDIAC VLTMHSB3095-40-23 23:29:00<0.02 [facility]annCARDIAC UPIDDGS2114-05-35 23:29:000.7[facility]annCARDIAC INLGWNS2194-50-48 23:29:0068[facility]annCARDIAC ADVEFLI9052-15-98 23:29:00 1.0[facility]annCARDIAC KBDOLXO4809-94-63 17:33:000.9[facility]annCARDIAC IMUZIDH4288-08-01 17:33:00<0.02[facility]annCARDIAC HOHRTEP2766-36-08 17:33:000.7[facility]annCARDIAC WRYPHIP6628-29-22 17:33:0076[facility] [place] CHEM BAKBQ1424-47-65 17:33:0090[facility] HermannCHEM IVIKO0097-89-48 17:33:003.1 [facility]annCHEM YQWOK3587-73-41 17:33:24639Qqxwpnxb HermannCHEM PANEL 2015-02-24 17:33:000.3[facility]annCHEM UQHGN9793-90-66 17:33:001.1[facility] HermannCHEM EZMEM7267-74-88 17:33:007.3[facility]annCHEM CQQWS6184-37-14 17:33:0012[facility]annCHEM EJQUI3694-88-43 17:33:000.8[facility]annCHEM XSODW5533-69-06 17:33:75112Vmfschoo HermannCHEM FFCDI7538-99-80 17:33:0088 [facility]annCHEM MOXOR4026-91-13 17:33:003.3[facility] HermannCHEM PANEL 2015-02-24 17:33:63232Wxxtvdxu HermannCHEM BNCZS7839-88-05 17:33:0010[facility]annCHEM AGWAH3646-58-33 17:33:0015[facility]annCHEM XQFEC0884-44-95 17:33:0022[facility]annCHEM ASLRR6887-20-48 17:33:008.9[facility]annCHEM PEWAH0904-35-36 17:33:0030[facility]annCHEM WEUSD5484-48-07 17:33:006.6 [facility]annCHEM KXIPH5867-42-53 17:33:003.5[facility]annHEMATOLOGY 2015-02-24 17:33:0055.9[facility] BbnsvebCMOZKRYATE2666-41-48 17:33:0028.7[facility] CaiyvqqPTFBGSOSZH7309-25-99 17:33:003.7[facility] ThupbhzIEMBAIWVCS9460-14-84 17:33:000.7[facility] AftrramHQPVHILCBZ9368-17-16 17:33:001.9[facility] GBJHKSDLEG0992-09-87 17:33:002.2[facility] UukdevmFDKJEBFUJM4125-17-19 17:33:00 12.5[facility] PsuhpbmFUKDGKTWRF7137-12-06 17:33:000.0[facility] HermannHEMATOLOGY 2015-02-24 17:33:000.1[facility] HsxieqjRTNQFHJDPA0533-20-00 17:33:000.8[facility] RilrrjwWLIGNPDEPE4818-67-04 17:33:008.8[facility] IjwiuxcHFZCKHUYJF5425-08-52 17:33:00 Test Item Value Reference Range Interpretation Comments MCH (test code = MCH) 28.1 pg 27.0-31.0 [facility] DzlznfbVFGQNAFHFF6815-69-16 17:33:0014.8[facility] HermannHEMATOLOGY 2015-02-24 17:33:0032.2[facility] KxalwufYKYKDYLRQN2807-84-04 17:33:57556Vprbadof ToochqdIJIZPHKWWG6375-91-48 17:33:0011.4[facility] FctnvmnLQGBRMQFYM6876-99-66 17:33:004.04[facility] HzoypljCNDCOPYLEZ1296-39-86 17:33:006.5[facility] [place] EQXKCWHHHQ5003-70-95 17:33:0035.3[facility] EyevhpxKETDXWBJSE9417-07-75 17:33:00 87.2[facility] HermannCARDIAC AQSVZIF1610-14-94 09:54:006[facility]annCARDIAC QKLUVLZ3033-67-59 09:54:00<0.02[facility]annCARDIAC PECMVKL6674-54-21 09:54:001.0[facility]annCARDIAC KZJZCHU6017-99-71 09:54:0077[facility] CHEM EQRUN2785-47-23 09:54:001.8[facility] HermannCHEM WJUVP2640-19-44 09:54:78001 [facility]annCHEM UPUII1252-84-57 09:54:75255Kjcmyffi HermannCHEM PANEL 2015-02-17 09:54:003.8[facility] HermannCHEM SDUEF8113-53-85 09:54:62191Gxdizqoz HermannCHEM QRZVR7792-08-33 09:54:008.6[facility] HermannCHEM FFCSP9832-20-24 09:54:0011.8[facility] HermannCHEM PZYWF3492-41-54 09:54:0025[facility] HermannCHEM ZPLZT5992-31-63 09:54:000.6[facility] HermannCHEM XDGRI4143-08-37 09:54:006 [facility]annCHEM OIOYY0056-84-05 09:54:0072[facility] HermannHEMATOLOGY 2015-02-17 09:54:0011.5[facility] SvyrprmFUFHWG3008-24-60 09:54:0051[facility] GmqvujfDGERDQ2760-27-82 09:54:0017[facility] ZwxoegwJJARXO3168-31-34 09:54:0096 [facility] EvcbwsqSQLJMD5172-63-58 09:54:43445Waiyejjw SxkofdeWIGGPX8622-34-56 09:54:0084[facility] FfiruldQWUEBM8614-76-03 09:54:003.22[facility] HermannSPECIAL IEWXLLXFM2637-23-19 09:54:005.8[facility] HermannCARDIAC HAFZNFY0517-68-83 04:20:00<0.02[facility] HermannCARDIAC OLTIIZW0686-45-01 04:20:0092[facility]annCARDIAC ADXGDPN5799-29-82 04:20:001.2[facility] HermannCARDIAC ENZYMES 2015-02-16 22:59:001.2[facility]annCARDIAC TRPXYMF8903-55-61 22:59:001.3 [facility]annCARDIAC OVIQQVN7390-81-31 22:59:0093[facility]annCARDIAC GZJJBZA3455-14-91 22:59:00<0.02[facility] HermannCARDIAC RVREZLU6413-92-93 22:59:004[facility] HermannCHEM OUHDN6972-98-88 22:59:01664Mfkwwpqi HermannCHEM AOYWE2440-14-39 22:59:001.0[facility] HermannCHEM VGIFE9564-70-60 22:59:003.6 [facility]annCHEM WDYND0029-00-81 22:59:000.4[facility] HermannCHEM PANEL 2015-02-16 22:59:000.1[facility] HermannCHEM AFIJA6525-64-58 22:59:000.5[facility] HermannCHEM GRADG3839-42-68 22:59:007.3[facility] HermannCHEM JVDUX2338-49-25 22:59:54917Gdcrxire HermannCHEM YHFAR2785-05-69 22:59:0015[facility] HermannCHEM SQSKR7092-06-66 22:59:0021[facility] HermannCHEM SDAZE3590-24-55 22:59:003.7 [facility]annCHEM LTZAA9142-12-27 22:59:003.1[facility] HermannCHEM PANEL 2015-02-16 22:59:001.9[facility] HermannCHEM OPFZZ3646-82-39 22:59:0090[facility] HermannCHEM GLIFP4966-07-91 22:59:009.0[facility] HermannCHEM JTKTM3240-31-57 22:59:0028[facility] HermannCHEM GILVE5291-72-34 22:59:73150Xzhbtviu HermannCHEM WICXU0974-66-41 22:59:000.8[facility] HermannCHEM ILNPH6125-50-62 22:59:0011 [facility]annCHEM CJAAI1455-57-89 22:59:003.5[facility] HermannCHEM PANEL 2015-02-16 22:59:08269Oyilmhmq HermannCHEM XATWE1246-07-92 22:59:0076[facility] HermannCHEM QIAGU0728-68-30 22:59:007.5[facility] XdrcwifEGXVJZWVUU4597-70-22 22:59:003.3[facility] KuhoiraWALLEDEJTY3543-77-79 22:59:009.1[facility] WSFUHJQCKK6747-10-85 22:59:0028.9[facility] UzfnlqtGMQTXXIJZR4124-22-22 22:59:00 58.3[facility] ThdwqasATPXUULVJC9258-07-07 22:59:003.8[facility] HermannHEMATOLOGY 2015-02-16 22:59:000.4[facility] TlnvbccJKAVDMYBVV9432-48-96 22:59:000.6[facility] EncfvmdRVMYUZNDYC6925-28-87 22:59:001.9[facility] SydenutGDYONVXCWI0539-03-80 22:59:000.2[facility] RbijbhkDKLZGBQDFZ0990-88-97 22:59:000.0[facility] [place] FSDNGCNWMY5763-46-42 22:59:00 Test Item Value Reference Range Interpretation Comments PTT (test code = PTT) 36.0 s 22.9-35.8 [facility] KdadxbiPZMXUWBIVX0763-14-85 22:59:00 Test Item Value Reference Range Interpretation Comments PT (test code = PT) 12.9 s 12.0-14.7 [facility] YxrgqknUHHALJZKIN4223-41-18 22:59:000.97[facility] HermannHEMATOLOGY 2015-02-16 22:59:04453Bmzlsfkq VovmonzOKJDYGGKKQ3902-36-62 22:59:0014.7[facility] FinwlhiEBTNWMDZVI1679-37-83 22:59:008.7[facility] RajvraqIFOGCDQLQN7668-62-02 22:59:0032.6[facility] ZkriboqTLMBVVGHIZ4312-86-73 22:59:0039.5[facility] ESUHMCNXIG1589-54-85 22:59:0087.3[facility] JagcrbsREVOXSTTJW0935-52-28 22:59:00 Test Item Value Reference Range Interpretation Comments MCH (test code = MCH) 28.4 pg 27.0-31.0 [facility] IeagrxjUUWNRSLPSO9854-54-76 22:59:004.52[facility] HermannHEMATOLOGY 2015-02-16 22:59:0012.9[facility] WtcqddtPALUKKSPMA4357-68-12 22:59:006.5[facility] TmgovvpADDRLIBYG7780-99-59 22:59:0046[facility] HermannCARDIAC WOWXLLD9244-55-71 21:17:0015[facility] HermannCARDIAC AMJZEMA4143-29-57 21:17:00<0.02[facility] HermannCARDIAC GKSFZWQ5017-56-87 21:17:0080[facility] HermannCARDIAC ENZYMES 2013-12-22 21:17:00<0.5[facility] HermannCARDIAC THTJENO3310-58-07 21:17:00 <0.6[facility] HermannCHEM TMGRY0980-91-20 21:17:75166Heiuzada HermannCHEM ZNSXB7214-95-26 21:17:003.6[facility] HermannCHEM WDRYQ6937-75-75 21:17:0017 [facility]annCHEM JMORR8474-85-69 21:17:001.1[facility] HermannCHEM PANEL 2013-12-22 21:17:26124Kqgayjvj HermannCHEM MVNTD8356-70-35 21:17:0034[facility] HermannCHEM NUBKK0382-50-17 21:17:003.9[facility] HermannCHEM IBAVN5437-65-66 21:17:0089[facility] HermannCHEM LBJQY2438-25-91 21:17:0022[facility] HermannCHEM ASDVI4402-09-98 21:17:000.6[facility] HermannCHEM QIBOZ5444-08-76 21:17:005.5 [facility]annCHEM XXLWT3220-23-37 21:17:000.6[facility] HermannCHEM PANEL 2013-12-22 21:17:0010[facility] HermannCHEM VEQJP0480-46-57 21:17:003.5[facility] HermannCHEM BJDRD6341-33-80 21:17:54136Vznaylux HermannCHEM DPJQO2695-83-92 21:17:74695Jcyfznqm HermannCHEM LYQOV8335-50-32 21:17:0029[facility] HermannCHEM NLTLW6693-16-56 21:17:007.5[facility] HermannCHEM RHJTD8947-81-19 21:17:009.2 [facility]annDRUG ITZJBI2333-75-10 21:17:00Negative *NA*(12/22/13 4:17 PM) [facility]annDR[facility] OHSFIC4858-77-47 21:17:00Negative *NA*(12/22/13 4:17 PM) [facility]annDR[facility] WPWZBC6792-20-70 21:17:00See Note 4*NA*(12/22/13 4:17 PM) [facility]annDR[facility] GNBORZ8342-19-83 21:17:00Negative *NA*(12/22/13 4:17 PM) [facility]DR[facility] ENCJLB3568-18-64 21:17:00Negative *NA*(12/22/13 4:17 PM) [facility]DR[facility] PSBQQK6115-12-19 21:17:00Negative *NA*(12/22/13 4:17 PM) [facility]DR[facility] QMZMUZ6726-49-29 21:17:00Negative *NA*(12/22/13 4:17 PM) [facility]annDR[facility] DDJJDE7891-44-45 21:17:00Negative *NA*(12/22/13 4:17 PM) [facility] NwmdywiQDMPBNIERE9641-00-80 21:17:00 Test Item Value Reference Range Interpretation Comments PTT (test code = PTT) 35.2 s 22.9-35.8 [facility] CinjopkDCQGJSAQOM7384-93-48 21:17:00 Test Item Value Reference Range Interpretation Comments PT (test code = PT) 12.2 s 12.0-14.7 [facility] GibrmwoEVLRIJYUSU4543-88-70 21:17:000.91[facility] HermannHEMATOLOGY 2013-12-22 21:17:008.4[facility] JqosyrrCJOKGCOOAG7955-91-23 21:17:00 Test Item Value Reference Range Interpretation Comments MCH (test code = MCH) 29.2 pg 27.0-31.0 [facility] LeklcydFTNRWIDDHO2318-50-88 21:17:0033.4[facility] HermannHEMATOLOGY 2013-12-22 21:17:0014.5[facility] NthjddfLZNKVCSGTL5844-09-92 21:17:88871Bjevlkny WcdhoocKWNQNMKUBI3496-48-52 21:17:0041.6[facility] HvwtofdKSKYFXLLQA7402-11-80 21:17:0087.5[facility] GfkkbqxXBSHRNOYKG8553-07-84 21:17:004.76[facility] UQGOEHVXAR8497-17-60 21:17:0013.9[facility] GhlmuabZJKTETYTQN8613-94-50 21:17:00 8.5[facility] IwtzjffWTHZJTJSSN7753-16-04 21:17:000.2[facility]annHEMATOLOGY 2013-12-22 21:17:000.0[facility] ViklxhjHQJCTBIIDG0747-03-21 21:17:0066.1[facility] HahivgpNVVCAGPDLU4854-96-99 21:17:006.1[facility] KlcbaedCSZWSTGBWJ8616-92-91 21:17:0025.0[facility] AelzvaeJHZHFJBFJA0381-59-86 21:17:002.4[facility] [place] IXKHGPPBQY0942-69-37 21:17:000.4[facility] OphoffeZJFUWNAQOR0962-92-75 21:17:002.1 [facility] OulehhhOSECMAEMFS8509-12-29 21:17:000.5[facility] HermannHEMATOLOGY 2013-12-22 21:17:005.6[facility]annURINE AND SPQMK2348-72-47 21:17:00Trace *ABN*(12/22/13 4:17 PM)[facility] ASVJR0725-44-20 21:17:00Negative *NA*(12/22/13 4:17 PM)[facility] SZMQW1717-90-21 21:17:000.2 [facility] FJLJU8709-47-17 21:17:00Small *ABN*(12/22/13 4:17 PM) [facility] KTFPH6339-61-33 21:17:00Negative *NA*(12/22/13 4:17 PM) [facility] VGLKD5115-31-66 21:17:00Negative (12/22/13 4:17 PM) [facility] EPSWA9128-50-65 21:17:00Clear (12/22/13 4:17 PM) [facility] RDRLT3948-46-54 21:17:00Yellow *NA*(12/22/13 4:17 PM) [facility] ZBZHF0517-48-51 21:17:00 Test Item Value Reference Range Interpretation Comments UA pH (test code = UA pH) 6.0 1 5.0-8.0 [facility] USBNY6228-48-05 21:17:00 Test Item Value Reference Range Interpretation Comments UA Spec Grav (test code = UA Spec 1.015 1 Grav) [facility] FXQVN5719-39-21 21:17:00Negative (12/22/13 4:17 PM) [facility] IBSYT3732-44-58 21:17:00Negative (12/22/13 4:17 PM) [facility]annCHEM FKCXY9775-29-54 15:55:312.7[facility] HermannCHEM PANEL 2013-12-17 15:55:312.2[facility] EauomxsXKIAXGIAGHPW3452-45-93 15:55:3110.5 [facility] YeeazcqMLVTEIJAOFDH4822-28-83 15:55:3191[facility] HermannELECTROLYTES 2013-12-17 15:55:3110[facility] FmpddeqBWKRKPYETCVC2263-43-91 15:55:310.8[facility] CxzvyefBYCWPYKWZHRD3546-56-88 15:55:67348Cdqcjtcj NbykxatEZPSCMKDUXHZ6571-34-67 15:55:3187[facility] DapappaEQNVACLJTCRA3535-88-71 15:55:3130[facility] UNKTWXMYRVSY3063-79-97 15:55:314.5[facility] VswvuauVWICZZBQNBGG9851-07-63 15:55:92443Ewpdickt ZzooymoBVCLCBAQIWEH1834-88-42 15:55:318.6[facility] RBFAPQXIZC5338-26-90 15:55:310.97[facility] LlenmlvHYJYNQFWSN7962-75-24 15:55:31 Test Item Value Reference Range Interpretation Comments PTT (test code = PTT) 32.4 s 22.9-35.8 [facility] UmoiqbxAWHXLURFFI9819-23-47 15:55:31 Test Item Value Reference Range Interpretation Comments PT (test code = PT) 12.8 s 12.0-14.7 [facility] WbhdxmhCXOWZEIDXN3299-07-35 15:55:3113.7[facility] HermannHEMATOLOGY 2013-12-17 15:55:314.88[facility] DpdrbapSMZBYQNMCB6287-30-26 15:55:31 Test Item Value Reference Range Interpretation Comments MCH (test code = MCH) 28.1 pg 27.0-31.0 [facility] GrjvztdRGKXKYYOQM2166-32-98 15:55:3142.1[facility] HermannHEMATOLOGY 2013-12-17 15:55:3186.4[facility] BiakyfyAGPJVHTXZY1981-12-08 15:55:3114.3[facility] UehtniqHAUXCYWEQP0319-49-07 15:55:3132.5[facility] CmcqmekPKHAYPLMKT9426-55-94 15:55:318.4[facility] GonlieyKUOVOOVXAF0064-27-36 15:55:04708Nsxurhnq [place] BVGTWKUTCI5244-62-77 15:55:317.2[facility] FaoiuleYBIJOGOEIC0595-08-72 15:55:31 10.7[facility] UbtasvfIUHNYOSXOK0697-12-95 15:55:3127.2[facility] HermannHEMATOLOGY 2013-12-17 15:55:311.9[facility] XzzwuhrSUPJCNEIZK2361-38-71 15:55:313.2[facility] SlqhmpeSCWXAEEUAR5260-64-86 15:55:310.6[facility] ByourymDECUDZJPLN1131-62-93 15:55:314.2[facility] CubmcfnPDLMQSXXFB2735-34-22 15:55:310.2[facility] [place] CCHRNOLHMU8655-25-81 15:55:310.8[facility] OmtnxmnGSPVJTUGTG6247-86-18 15:55:31 58.3[facility] HermannPARATHYROID FCHPNPZ8693-08-83 15:55:191.11[facility] PARATHYROID WPNLIEQ2705-01-00 15:55:191.17[facility] HermannDRUG PNNHKH3051-42-83 03:45:57Negative *NA*(12/16/13 10:45 PM)[facility]annDR[facility] SYZVUU9276-28-91 03:45:57Positive *ABN*(12/16/13 10:45 PM)[facility]annDR[facility] RGJLYQ5459-26-85 03:45:57Negative *NA*(12/16/13 10:45 PM)[facility]annDR[facility] RAWEVD3779-40-66 03:45:57Negative *NA*(12/16/13 10:45 PM)[facility]annDR[facility] QEROVE6162-84-23 03:45:57Negative *NA*(12/16/13 10:45 PM)[facility]annDR[facility] HBLCOV9236-19-14 03:45:57See Note 6(12/16/13 10:45 PM)[facility]annDR[facility] XHHLFN2164-30-71 03:45:57Negative *NA*(12/16/13 10:45 PM)[facility]annDR[facility] LVIREO9265-50-31 03:45:57Negative *NA*(12/16/13 10:45 PM)[facility] HermannCARDIAC LTMHTWC0620-41-28 03:45:0056[facility] HermannCARDIAC JBDTITP5708-21-99 03:45:00<0.010[facility] HermannCARDIAC QRMFYMO0110-68-96 03:45:00<0.02[facility] HermannCARDIAC ENZYMES 2013-12-17 03:45:0013[facility] AcgvpisRIKPEO3298-65-90 03:45:0018[facility] NKHZRL5195-42-80 03:45:0088[facility] UjtgknsGWLCEZ2255-34-32 03:45:0088[facility] IphnfcsXBIXNE4690-09-00 03:45:003.08[facility] FeayvniXANUCU2199-35-07 03:45:56192 [facility] HlylvzbEWPTTX3942-73-96 03:45:0051[facility] HermannSPECIAL CHEMISTRY 2013-12-17 03:45:005.3[facility] HermannTHYROID HLVHE5285-68-45 03:45:000.870 [facility]annCARDIAC UEKMLVB4350-94-26 22:09:0042[facility] HermannCARDIAC EPHCPKZ7646-92-84 22:09:00<0.02[facility] HermannCHEM OHLGT4861-29-58 19:30:00 1.3[facility] BpphzxlEIZIPTMEUA2455-04-64 19:30:00 Test Item Value Reference Range Interpretation Comments PT (test code = PT) 11.8 s 12.0-14.7 [facility] CtxqxkmLQIVQGUATA5156-05-49 19:30:000.87[facility] HermannHEMATOLOGY 2013-12-16 19:30:00 Test Item Value Reference Range Interpretation Comments PTT (test code = PTT) 31.2 s 22.9-35.8 [facility] MstgkirFGPNNJFGAX9893-46-40 19:30:004.69[facility] HermannHE[facility] 2013-12-16 19:30:006.6[facility] SiuhufpDYCTCADZUD4923-22-01 19:30:0040.5[facility] HuielasXMLYYHRIEY0393-55-71 19:30:0086.4[facility] GbnfyrqSKLWMJRPIJ5783-02-68 19:30:0013.6[facility] QweoljsDFCDZZVDDW1740-59-65 19:30:00 Test Item Value Reference Range Interpretation Comments MCH (test code = MCH) 29.0 pg 27.0-31.0 [facility] DesljhxTCNTWLCPBF5162-78-17 19:30:0033.6[facility] 2013-12-16 19:30:03874Mdngmbbf GgpayhuFTXMUQTQPG5870-66-76 19:30:0013.4[facility] GbphvvwUAYOAVQHOW8376-51-95 19:30:008.6[facility] AvqsjnyKALMIPESNT1528-93-84 19:30:000.8[facility] CuziqesEWKPMXMTCU1351-13-66 19:30:000.0[facility] YWBRQGWLVL2214-26-33 19:30:0012.1[facility] QkmqzejLAYBZPENZC3363-30-81 19:30:00 3.8[facility] UktaderQTKSTOOYQV0119-62-05 19:30:000.6[facility] 2013-12-16 19:30:003.9[facility] XfsunhsYTKVZVONEG5801-21-90 19:30:000.3[facility] HnuimwwRYTWBDJUZV6619-65-87 19:30:001.6[facility] EjgzyfeVMLVLEMRLX3199-08-59 19:30:0025.0[facility] BqkfbsjQAHOEUAWIS1210-77-27 19:30:0058.5[facility] CHEM MSEZO8741-98-20 17:43:2479[facility]annCHEM FAWDB1303-65-16 17:43:240.9 [facility]annCHE[facility] QGWPY3732-59-23 17:43:86425Vzncgbkl HermannCHEM PANEL 2013-12-16 17:43:244.5[facility]annCHEM HHYQI4179-56-63 17:43:16508Iprzhhec HermannCHEM SYZNZ0882-54-53 17:43:2478[facility]annCHEM WCBPX2521-43-55 17:43:2411[facility]annCHEM KWWFT2794-03-09 17:43:241.0[facility]annCHE[facility] YUUGR7379-15-36 17:43:2412[facility]annCHE[facility] WWTNP3204-08-04 17:43:243.6 [facility]annCHE[facility] LHWJS6540-86-37 17:43:2416.5[facility]annCHEM PANEL 2013-12-16 17:43:247.2[facility]annCHEM NVMYT9646-70-70 17:43:2419[facility]annCHE[facility] YVZQH6960-94-27 17:43:2423[facility]annCHEM RPNGU7165-04-29 17:43:249.2[facility]annCHE[facility] MLQPQ3332-44-31 17:43:240.3[facility]annCHEM WCBAM9842-07-76 17:43:243.6[facility]annCHE[facility] RNWUP2528-66-55 17:43:2487 [facility]annCHE[facility] UCBJD3152-03-18 17:43:2431[facility]annCARDIAC ENZYMES 2013-12-16 17:43:0056[facility]annCARDIAC ZKEDYHY3940-98-46 17:43:00<0.02 [facility] YKWHXNH0264-25-44 19:12:00<0.02[facility] CARDIAC FRBIVEE0918-17-83 19:12:0049[facility]annC[facility]AC MFTMIQP3011-86-55 19:12:00<0.010[facility] FnckvfcUIYJFROFP8053-02-88 19:12:0036[facility] CARDIAC TJXJMPC3165-44-57 12:35:00<0.010[facility]annC[facility]AC ENZYMES 2013-11-08 12:35:0054[facility] VFVIZZO9497-14-79 12:35:00<0.02 [facility] FPZBTRY0303-00-99 08:36:00<0.02[facility] RPIJBDMAMBBC6500-68-83 08:36:0011.4[facility] FgbokjeOKONMZJCFXND6897-65-48 08:36:0069[facility] UenxzykPKEJFSQQRBZX5106-84-40 08:36:009.2[facility] ELMYPBJUJAVT9201-77-07 08:36:0027[facility] PwtqrmjVYWEIUPCUBAY8115-85-97 08:36:00 105[facility] VfeueepEVXNWZCPEPRV0773-19-09 08:36:003.4[facility] NLOYTPFLHDTT4220-69-11 08:36:93421Ukbaqphe CzcgrjlOGPVWGVWMFYW7416-63-05 08:36:0011[facility] KqkkzdfUKZEPSKTCYWB0415-48-89 08:36:0084[facility] GXDHAFJCONPH6835-63-01 08:36:001.0[facility] PcjkoifMADQBPCKOS2118-65-04 08:36:00 0.1[facility] XlgzepnHSYFLCECSW0196-72-46 08:36:000.2[facility]annHEMATOLOGY 2013-11-08 08:36:000.8[facility] MrobaesODMIKZAABS6458-43-74 08:36:0072.5[facility] YzvismpFLYOONOMZF6681-07-86 08:36:0017.0[facility] BykpyodJVMXUUQVTT9365-72-95 08:36:002.1[facility] NjvlorhEKYJXAJWPA3725-24-04 08:36:007.8[facility] AYHCJDPECX7241-05-76 08:36:007.6[facility] OucymemIQNBKVPBXN2614-67-52 08:36:000.6 [facility] BznyynzHUPXKTIKWE1225-87-13 08:36:001.8[facility]annHEMATOLOGY 2013-11-08 08:36:008.7[facility] HhfdrfmQOADIYSNKI1165-55-51 08:36:0014.0[facility] LfdvktsNBUUYVFCXK3512-29-51 08:36:25841Dzzaqvmp NjowxxfNFLAWERZZX1100-03-10 08:36:0033.9[facility] CfxyqphRGZBUXWDUE3905-89-90 08:36:004.65[facility] MLNRQTTXZB5804-16-81 08:36:0010.6[facility] OhbuwauIBQBYYEBJZ8916-84-98 08:36:00 Test Item Value Reference Range Interpretation Comments MCH (test code = MCH) 29.3 pg 27.0-31.0 [facility] TgpcpxnQMAWJZAYXB1710-07-64 08:36:0086.6[facility]annHEMATOLOGY 2013-11-08 08:36:0013.6[facility] LbciffiERRUMKXDWO1874-13-11 08:36:0040.2[facility]
[2021-04-07] MEDS ORDERED: NA CHLORIDE 0.9% 500 ML ONE (14:48)
[2021-04-07 15:04] LABS: Absolute Lymphocytes (CBC) 1.9 K/uL (0.7-4.9); Basophils % 0.7 % (0-1.3); Hematocrit 43.9 % (36.0-45.0); Lymphocytes % 28.6 % (15.3-44.8); MPV 7.5 fL (7.6-11.3); RBC Red Blood Cell Count 5.07 M/uL (3.86-4.86)
[2021-04-07 15:15] LABS: Urine Blood Negative (Negative); Urine Glucose Negative (Negative); Urine Protein Negative (Negative); Urine Specific Gravity 1.015 (1.005-1.030)
[2021-04-07 15:35] LABS: BUN Blood Urea Nitrogen 11 mg/dL (7-18); Bicarbonate 30 mmol/L (21-32); Glucose Level 89 mg/dL (74-106); NT PRO-BNP 22 pg/mL (<125); Potassium 4.1 mmol/L (3.5-5.1); Sodium Level 143 mmol/L (136-145); Troponin (Emerg Dept Use Only) < 0.02 ng/mL (0.0-0.045)
[2021-04-07 15:37] LABS: SARS-COV-2 RT PCR NEGATIVE (NEGATIVE)
--- NOTE | 2021-04-07 16:07 | RAD REPORT ---
EXAM DESCRIPTION: RAD - Chest Pa And Lat (2 Views) - 04/07/2021 3:20 pm CLINICAL HISTORY: PAIN Chest pain. COMPARISON: Chest Single View dated 03/18/2021; Chest Single View dated 01/21/2021; Chest Single View dated 01/06/2021; Chest Single View dated 12/15/2020 FINDINGS: The lungs are clear. The heart is normal in size. No displaced fractures. IMPRESSION: No acute or concerning finding suspected.
--- NOTE | 2021-04-07 16:10 | RAD REPORT ---
EXAM DESCRIPTION: RAD - C Spine Ap/Lat - 04/07/2021 3:20 pm CLINICAL HISTORY: PAIN COMPARISON: No comparisons FINDINGS: Multilevel moderately severe degenerative changes are present involving the mid and lower cervical spine.There is significant disc thinning with posterior osteophyte formation noted C6-7 and C7-T1. 4 mm degenerative anterolisthesis of C5 on C6 is noted.No fracture or acute bony process seen. No prevertebral soft tissue thickening or other suspicious soft tissue finding. Prominent facet hypertrophy is noted bilaterally lower cervical spine. Rudimentary bilateral cervical ribs are present. IMPRESSION: Moderately severe lower cervical degenerative spondylosis.
--- NOTE | 2021-04-07 16:15 | ER ---
Nurse's Notes [facility] Name: Winsome Yepez Age: 70 yrs Sex: Female : 1950 Arrival Date: 04/07/2021 Time: 13:04 Bed 19 Private MD: Diagnosis: Chest pain, unspecified;Dehydration Presentation: 04/07 13:24 Chief complaint: Patient states: Pt stated, "I have swimming in my head, chest pain, kg and shortness a breath." all starting Tuesday. Pt is poor historian. Coronavirus screen: Client denies travel out of the [place] in the last 14 days. At this time, unable to obtain information related to travel outside the [place] Client presents with at least one sign or symptom that may indicate coronavirus-19. Standard/surgical mask placed on the client. Provider contacted for isolation considerations. Ebola Screen: Patient negative for fever greater than or equal to 101.5 degrees Fahrenheit, and additional compatible Ebola Virus Disease symptoms Patient denies exposure to infectious person. Patient denies travel to an Ebola-affected area in the 21 days before illness onset. 13:24 Method Of Arrival: Wheelchair kg 13:24 Method Of Arrival: EMS: [facility] kg 13:24 Initial Sepsis Screen: Does the patient meet any 2 criteria? No. Patient's initial kg sepsis screen is negative. Does the patient have a suspected source of infection? No. Patient's initial sepsis screen is negative. Risk Assessment: Do you want to hurt yourself or someone else? Patient reports no desire to harm self or others. Onset of symptoms was April 05, 2021. 13:24 Acuity: CYNTHIA 3 kg Triage Assessment: 13:28 General: Appears in no apparent distress. Behavior is calm, cooperative, appropriate kg for age, quiet. Pain: Complains of pain in anterior aspect of left upper chest and left breast Pain radiates to thoracic area and lumbar area Pain currently is 10 out of 10 on a pain scale. at worst was 10 out of 10 on a pain scale. level that patient reports is acceptable is 3 out of 10 on a pain scale. Quality of pain is described as stabbing, Stomping. Cardiovascular: Chest pain is described as Pain is 10 out of 10 on a pain scale. quality is sharp, Stomping. Respiratory: Reports shortness of breath. Historical: - Allergies: 13:28 PENICILLINS; kg - PMHx: 13:28 Asthma; High Cholesterol; Hypertension; Myocardial infarction; Sickle Cell; kg - PSHx: 13:28 Back Sx; kg - Immunization history:: Adult Immunizations not up to date, Client reports having NOT received the Covid vaccine. - Social history:: Smoking status: Patient reports the use of cigarette tobacco products, smokes two packs cigarettes per day. - Family history:: not pertinent. - Hospitalizations: : No recent hospitalization is reported. Screenin:33 Abuse screen: Denies threats or abuse. Denies injuries from another. Nutritional kg screening: No deficits noted. Tuberculosis screening: No symptoms or risk factors identified. Fall Risk None identified. Assessment: 14:06 General: Appears in no apparent distress. comfortable, Behavior is calm, cooperative. vg1 Pain: Complains of pain in chest and left breast Pain currently is 7 out of 10 on a pain scale. Pain began 04/03/21. Neuro: Level of Consciousness is awake, alert, obeys commands, Oriented to person, place, time, situation. Cardiovascular: Patient's skin is warm and dry. Respiratory: Airway is patent Respiratory effort is even, unlabored. GI: No signs and/or symptoms were reported involving the gastrointestinal system. : Reports blood in urine after wiping. EENT: Oral mucosa is dry. Derm: Skin is intact, Skin is pink, warm \\T\\ dry. Musculoskeletal: Circulation, motion, and sensation intact. 15:35 Reassessment: Patient appears in no apparent distress at this time. No changes from vg1 previously documented assessment. Patient and/or family updated on plan of care and expected duration. Pain level reassessed. Patient is alert, oriented x 3, equal unlabored respirations, skin warm/dry/pink. 16:46 Reassessment: Patient appears in no apparent distress at this time. Patient and/or vg1 family updated on plan of care and expected duration. Pain level reassessed. Patient is alert, oriented x 3, equal unlabored respirations, skin warm/dry/pink. Patient states feeling better. Vital Signs: 13:24 BP 96 / 82; Pulse 80; Resp 20; Temp 96.7; Pulse Ox 95% ; Weight 49.9 kg; Height 5 ft. 0 kg in. (152.40 cm); Pain 9/10; 14:09 BP 99 / 65; Pulse 67; Resp 18; Pulse Ox 100% ; vg1 15:00 BP 100 / 79; Pulse 68; Resp 18; Pulse Ox 100% ; vg1 13:24 Body Mass Index 21.48 (49.90 kg, 152.40 cm) kg ED Course: 13:04 Patient arrived in ED. iw 13:28 Triage completed. kg 13:28 Arm band placed on right wrist. EKG completed in triage. Results shown to MD. EKG kg completed in triage. Results shown to MD. EKG completed in triage. Results shown to MD. 13:33 Patient has correct armband on for positive identification. kg 13:33 No provider procedures requiring assistance completed. kg 13:51 Julio Garcia MD is Attending Physician. rn 13:54 Bhargavi Jennings RN is Primary Nurse. vg1 14:48 Missed attempt(s): 24 gauge in right hand. vg1 14:56 Inserted saline lock: 22 gauge in right wrist, using aseptic technique. ,using aseptic vg1 technique. completed by Sandi NASCIMENTO Blood collected. 14:58 Missed attempt(s): 22 gauge in right antecubital area. PT JUMPED NEEDLE CAME OUT. 5 15:20 XRAY Chest Pa And Lat (2 Views) In Process Unspecified. EDMS 15:20 XRAY C Spine Ap/lat In Process Unspecified. EDMS 16:47 IV discontinued, intact, bleeding controlled, No redness/swelling at site. Pressure vg1 dressing applied. Administered Medications: 14:56 Drug: NS 0.9% 500 ml Route: IV; Rate: bolus; Site: right wrist; vg1 16:33 Follow up: IV Status: Completed infusion; IV Intake: 500ml vg1 Intake: 16:33 IV: 500ml; Total: 500ml. vg1 Outcome: 16:14 Discharge ordered by . rn 16:47 Discharged to home via wheelchair. vg1 16:47 Condition: stable 16:47 Discharge instructions given to patient, Instructed on discharge instructions, follow up and referral plans. Demonstrated understanding of instructions, follow-up care. 16:47 Patient left the ED. vg1 Signatures: Dispatcher [employer] EDMS Sandi Cooper RN RN iw Julio Garcia MD MD rn Martinez, Maria 5 Bhargavi Jennings RN RN vg1 See, Julia, RN RN kg Corrections: (The following items were deleted from the chart) 14:14 14:06 : No signs and/or symptoms were reported regarding the genitourinary system. [id number]
--- NOTE | 2021-04-07 16:15 | EDPHYS ---
Physician Documentation [facility] Name: Winsome Yepez Age: 70 yrs Sex: Female : 1950 Arrival Date: 04/07/2021 Time: 13:04 Bed 19 Private MD: ED Physician Julio Garcia HPI: 04/07 14:45 This 70 yrs old Black Female presents to ER via EMS with complaints of Chest Pain, rn Shortness Of Breath. 14:45 The patient or guardian reports chest pain that is located primarily in the left rn lateral anterior chest. Onset: at an unknown time. The pain does not radiate. Associated signs and symptoms: Pertinent positives: cough, dizziness, shortness of breath, Pertinent negatives: lower extremity pain, lower extremity swelling, syncope. The chest pain is described as sharp, stabbing. Duration: The patient or guardian reports multiple episodes, that are intermittent. Modifying factors: The symptoms are alleviated by nothing. the symptoms are aggravated by nothing. Severity of pain: At its worst the pain was mild in the emergency department the pain has improved. The patient has experienced similar episodes in the past. The patient has not recently seen a physician. Patient reports generalized weakness, left-sided chest pain, cough, fatigue, dehydration. Does not remember when symptoms began. Feels like cough and chest pain have been there since the last rainstorm per patient. No fever. Patient also reports fell last week, thinks landed on left side. Also reports has not been drinking water because feels like water at her apartment is not purified. Has not been eating much because does not like daughter is cooking per patient. Historical: - Allergies: 13:28 PENICILLINS; kg - PMHx: 13:28 Asthma; High Cholesterol; Hypertension; Myocardial infarction; Sickle Cell; kg - PSHx: 13:28 Back Sx; kg - Immunization history:: Adult Immunizations not up to date, Client reports having NOT received the Covid vaccine. - Social history:: Smoking status: Patient reports the use of cigarette tobacco products, smokes two packs cigarettes per day. - Family history:: not pertinent. - Hospitalizations: : No recent hospitalization is reported. ROS: 14:45 Constitutional: Negative for fever, chills, and weight loss, Eyes: Negative for injury, rn pain, redness, and discharge, Neck: Negative for injury, pain, and swelling, Cardiovascular: Negative for palpitations, and edema, Respiratory: Negative for wheezing, and pleuritic chest pain Abdomen/GI: Negative for abdominal pain, nausea, vomiting, diarrhea, and constipation, Back: Negative for injury and pain, : Negative for injury, bleeding, discharge, and swelling, MS/Extremity: Negative for injury and deformity, Skin: Negative for injury, rash, and discoloration, Neuro: Negative for headache, numbness, tingling, and seizure. 14:45 All other systems are negative. Exam: 14:45 Constitutional: Thin female, no acute distress Head/Face: Normocephalic, atraumatic. rn Eyes: Periorbital areas with no swelling, redness, or edema. ENT: Dry mucous membranes Chest/axilla: Normal chest wall appearance and motion. Nontender with no deformity. No lesions are appreciated. Cardiovascular: Regular rate and rhythm. No pulse deficits. Respiratory: Speaking full sentences, unlabored. No increased work of breathing, no retractions or nasal flaring. Abdomen/GI: Soft, non-tender, nondistended Skin: Warm, dry MS/ Extremity: Pulses equal, no cyanosis. Neurovascular intact. Full, normal range of motion. Equal circumference. Neuro: Awake and alert, GCS 15, oriented to person, place, time, and situation. Cranial nerves II-XII grossly intact. Motor strength 5/5 in all extremities. Sensory grossly intact. Cerebellar exam normal. 17:55 ECG was reviewed by the Attending Physician. rn Vital Signs: 13:24 BP 96 / 82; Pulse 80; Resp 20; Temp 96.7; Pulse Ox 95% ; Weight 49.9 kg; Height 5 ft. 0 kg in. (152.40 cm); Pain 9/10; 14:09 BP 99 / 65; Pulse 67; Resp 18; Pulse Ox 100% ; vg1 15:00 BP 100 / 79; Pulse 68; Resp 18; Pulse Ox 100% ; vg1 13:24 Body Mass Index 21.48 (49.90 kg, 152.40 cm) kg MDM: 13:57 Patient medically screened. rn 16:11 Differential diagnosis: anxiety, coronary artery disease chest wall pain, rn costochondritis, pericarditis, pneumonia, pneumothorax. Data reviewed: vital signs, nurses notes, lab test result(s), EKG, radiologic studies, plain films, and as a result, I will discharge patient. Test interpretation: by ED physician or midlevel provider: ECG, plain radiologic studies, Chest x-ray without infiltrate or pneumothorax, no rib fracture. Counseling: I had a detailed discussion with the patient and/or guardian regarding: the historical points, exam findings, and any diagnostic results supporting the discharge/admit diagnosis, lab results, radiology results, the need for outpatient follow up, to return to the emergency department if symptoms worsen or persist or if there are any questions or concerns that arise at home. Response to treatment: the patient's symptoms have mildly improved after treatment, and as a result, I will discharge patient. Special discussion: Based on the patient's history, exam, and Dx evaluation, there is no indication for emergent intervention or inpatient Tx. It is understood by the patient/guardian that if the Sx's persist or worsen they need to return immediately for re-evaluation. I discussed with the patient/guardian in detail that at this point there is no indication for admission to the hospital. It is understood, however, that if the symptoms persist or worsen the patient needs to return immediately for re-evaluation. ED course: No acute findings on ECG, negative chest x-ray, negative C-spine plain films. Stable vital signs without oxygen requirement. Positive dehydration, given fluids here. Will DC home with PCP follow-up and return precautions.. 04/07 14:03 Order name: BNP; Complete Time: 15:36 rn 04/07 14:03 Order name: CBC with Diff; Complete Time: 15:23 rn 04/07 14:03 Order name: Basic Metabolic Panel; Complete Time: 15:36 rn 04/07 14:03 Order name: Troponin (emerg Dept Use Only); Complete Time: 15:36 rn 04/07 13:36 Order name: XRAY Chest Pa And Lat (2 Views); Complete Time: 16:11 kg 04/07 14:03 Order name: XRAY C Spine Ap/lat; Complete Time: 16:11 rn 04/07 14:03 Order name: IV Start; Complete Time: 14:56 rn 04/07 14:03 Order name: EKG; Complete Time: 14:03 rn 04/07 14:03 Order name: EKG - Nurse/Tech; Complete Time: 14:14 rn 04/07 15:14 Order name: Urine Dipstick-Ancillary; Complete Time: 15:23 EDMS 04/07 15:37 Order name: COVID-19/FLU A+B; Complete Time: 16:11 EDMS 04/07 14:21 Order name: Urine Dipstick-Ancillary (obtain specimen); Complete Time: 14:21 vg1 EC:55 Rate is 86 beats/min. Rhythm is regular. QRS Aurelia is Normal. SC interval is normal. QRS rn interval is normal. QT interval is normal. No Q waves. T waves are Normal. No ST changes noted. Clinical impression: NSR w/ Non-specific ST/T Changes. Interpreted by me. Reviewed by me. Administered Medications: 14:56 Drug: NS 0.9% 500 ml Route: IV; Rate: bolus; Site: right wrist; vg1 16:33 Follow up: IV Status: Completed infusion; IV Intake: 500ml vg1 Disposition Summary: 04/07/21 16:14 Discharge Ordered Location: Home rn Problem: new rn Symptoms: have improved rn Condition: Stable rn Diagnosis - Chest pain, unspecified rn - Dehydration rn Followup: rn - With: Private Physician - When: As needed - Reason: Recheck today's complaints, Re-evaluation by your physician Discharge Instructions: - Discharge Summary Sheet rn - Nonspecific Chest Pain, Adult rn - Chest Wall Pain rn - Dehydration, Adult rn Forms: - Medication Reconciliation Form rn - Thank You Letter rn - Antibiotic internal review and audit compliance - Prescription Opioid Use rn Signatures: Dispatcher [employer] EDMS Julio Garcia MD MD rn Garcia, Victoria RN RN vg1 Julia Cui RN RN kg Corrections: (The following items were deleted from the chart) 14:40 13:37 CORONAVIRUS+MR.LAB.BRZ ordered. EDMS EDMS 14:52 13:37 Influenza Screen (A \T\ B)+BA.LAB.BRZ ordered. EDMS EDMS
[2021-04-07 16:58] VITALS: TEMP 96.7
[2021-04-07 17:00] VITALS: O2SAT 100
[2021-04-07 17:02] VITALS: BP 100/79
--- NOTE | 2021-04-08 13:02 | EKG ---
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
== END 2021-04-07 16:47 | disposition home or self-care (01) ==
LOC: ER 12:57
DX: E86.0 Dehydration (principal); I10 Essential (primary) hypertension; F17.210 Nicotine dependence, cigarettes, uncomplicated; Z88.0 Allergy status to penicillin; Z20.822 Contact with and (suspected) exposure to COVID-19
CPT/HCPCS: 96361; 93005; 85025; 80048; 36415; 81003; 84484; 83880; 0240U; 71046; 72040; 96360; 99284; J7040

== ENCOUNTER 2021-07-31 15:11 | Emergency (ER) | payer OTHER ==
--- OUTSIDE RECORDS SUMMARY | 2021-07-31 15:30 | XMS REPORT | Continuity of Care Document ---
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 Take with food. Omeprazole [...] as: l release 16:30: Toprol XL) Herm Do Not Crush clopidogrel No Notes: Eleazar hilton 03-22 (Same As: l 16:00: Plavix) Dexter 00 metoprolol Yes 12.5 mg = Me moria tartrate 25 7-25 0.5 tab, l mg oral 02:19: PO, BID, # Herm eugenie tablet 00 180 tab, 0 Refill(s) clopidogrel [...] hilton 7-25 (Same as: l 02:12: Zofran) Dexter 00 MEDICATION WASTE Product Size: 4 mg Product Wasted: ___ mg Docusate No Notes: Memoria 7-25 (Same as: l 02:12: Colace) Dexter 00 (Do Not Crush) Acetaminoph No Notes: Do M emoria en 25 not exceed l 02:12: 4 gm/day. Maciej 00 (Same as: Tylenol) Budesonide No Notes: Memor ia 0.25 MG/ML -25 (Same As: l Inhalant 01:00: Pulmicort) Her farooq Solution 00 [Pulmicort] Albuterol No Notes: Memori a 0.833 MG/ML -25 (Same as: l / 01:00: Duoneb) Dexter Ipratropium 00 [place] 0.167 MG/ML Inhalant Solution [DuoNeb] Potassium No Notes: Memori a Chloride 7-24 (Same as: l 1.33 MEQ/ML 23:15: Potassium H ermann Oral 00 Chloride) Solution Sodium No 1,000 mL, Memori a Chloride 7-24 1,000 l 0.154 22:23: ml/hr, Dexter MEQ/ML 00 Infuse Injectable Over: 1 Solution hr, Route: IV, ONCE, Priority: STAT, Dosing Weight 50 kg, Start date: 03/21/15 17:23:00, Duration: 1 doses or times, Stop date: 03/21/15 17:23:00 Sodium No 1,000 mL, Memori a Chloride 7-24 1,000 l 0.154 21:12: ml/hr, Dexter MEQ/ML 00 Infuse Injectable Over: 1 Solution hr, Route: IV, 1,000, Drug form: INJ, ONCE, Priority: STAT, Dosing Weight 50 kg, Start date: 03/21/15 16:12:00, Duration: 1 doses or times, Stop date: 03/21/15 16:12:00 Ondansetron No Notes: Eleazar hilton 7-24 (Same as: l 20:43: Zofran) Maciej MEDICATION WASTE Product Size: 4 mg Product Wasted: ___ mg Morphine No Notes: Memoria 7-24 (Same l 20:43: as:MORPhin Maciej 00 e Sulfate) Aspirin No Notes: Memoria 7-24 Take with l 20:43: food. Dexter 00 Saline No Notes: Memoria Flush 0.9% 24 (Same as: l 20:43: BD Dexter Posiflush) tramadol No 50 mg = 1 Eleazar hilton hydrochlori 7-14 tab, PO, l de 50 MG 22:02: Q4H, PRN Caroline nn Oral Tablet 00 pain, # 20 [Ultram] tab, 0 Refill(s) Aspirin No Notes: Memoria 7-14 Take with l 20:32: food. Dexter 00 Morphine No Notes: Memoria 7-14 (Same l 20:32: as:MORPhin Dexter 00 e Sulfate) Ondansetron No Notes: Eleazar hilton 7-14 (Same as: l 20:32: Zofran) MEDICATION WASTE Product Size: 4 mg Product Wasted: ___ mg Saline No Notes: Memoria Flush 0.9% -14 (Same as: l 20:32: BD Dexter Posiflush) Famotidine No 20 mg, 1 Mem oria 20 MG Oral 08 tab, l Tablet 14:00: Route: PO, Caroline nn [Pepcid] 00 BID, Dosing Weight 50, kg, Start date: 03/05/15 9:00:00, Duration: 30 day, Stop date: 04/03/15 17:00:00 MDI Inhaler Yes Special Mem oria Spacer 03-05 Instructio l 09:13: ns: Use as Dexter 00 directed 200 ACTUAT Yes 1 puff, Eleazar hilton Albuterol 7-08 INHALATION l 0.09 09:12: , Q4H, PRN Maciej MG/ACTUAT 00 for Metered wheezing, Dose # 9 gm, 0 Inhaler Refill(s) Iohexol No Notes: Memoria 7-08 (same l 07:26: as:Omnipaq ue 350). Famotidine No 20 mg, 1 Mem oria 20 MG Oral 03-05 tab, l Tablet 07:18: Route: PO, Caroline [...] Plavix) Omeprazole No 20 mg, Memor ia 6 Route: PO, l 14:00: Drug form: ECTAB, BID, Dosing Weight 50, kg, Start date: 02/25/15 9:00:00, Duration: 30 day, Stop date: 03/26/15 17:00:00 Nicoderm No Notes: Memoria C-Q 6-30 (Same as: l 14:00: Habitrol) "Remove old patch before applicatio n of new patch" Aspirin No Notes: Memoria 6-30 Take with l 14:00: food. Dexter 00 24 HR Yes = 1 patch, Memori a Nicotine 6-30 TOP, l 0.875 MG/HR 13:32: Daily, X He rmann Transdermal 56 14 day, # Patch 14 patch, [Nicoderm 0 C-Q] Refill(s) atorvastati Yes 40 mg = 2 M emoria n 20 mg 6-30 tab, PO, l oral tablet 13:32: Bedtime, # Dexter 46 60 tab, 0 Refill(s) omeprazole Yes 20 mg = 1 Me moria 20 mg oral 6-30 tab, PO, l enteric 13:32: BID, # 30 Caroline nn coated 44 tab, 0 tablet Refill(s) metoprolol Yes 12.5 mg = Me moria tartrate 25 6-30 0.5 tab, l mg oral 13:32: PO, BID, # Herm eugenie tablet 00 30 tab, 0 Refill(s) cyclobenzap Yes 10 mg = 1 M emoria rine 10 mg 6-30 tab, PO, l oral tablet 13:32: TID, PRN He rmann 00 for spasms, # 30 tab, 0 Refill(s) clopidogrel Yes 75 mg = 1 M emoria 75 MG Oral 6-30 tab, PO, l Tablet 13:32: Daily, # Dexter [Plavix] 00 30 tab, 0 Refill(s) Protonix No Notes: Memoria 6-30 Tablet l 12:30: should not Dexter 00 be chewed or crushed. (Same as: Protonix) Protonix No Notes: For Mem oria 6-30 IV push l 02:55: reconstitu Maciej 00 te with 10 ml 0.9% sodium chloride and push over 2 minutes. (Same as: Protonix) atorvastati No Notes: Eleazar hilton n 6-30 (Same As: l 02:00: Lipitor) Maciej 00 Sodium No 250 mL, Memoria Chloride 630 Route: l 0.9% IV 02:00: IVPB, Maciej 00 Start date: 02/24/15 21:00:00, Duration: 30 day, Stop date: 03/26/15 20:59:00, PRN Line Flush BD Normal No Notes: Memori a Saline 6-30 (Same as: l Flush 02:00: BD Dexter 00 Posiflush) potassium No Notes: Memori a chloride 6-30 Infuse at l 02:00: a rate of Dexter 00 10 mEq/hr. (Same as: KCL) metoprolol No [...] 1,000 mL No 1,000 mL, M emoria 6-22 Rate: 100 l 21:51: ml/hr, Maciej 00 Infuse over: 10 hr, Route: IV, Dosing Weight 51.051 kg, Total Volume: 1,000, Start date: 02/17/15 16:51:00, Duration: 30 day, Stop date: 03/19/15 16:50:00 Sodium No IV, 0 Memoria Chloride 6-22 ml/hr, l 0.9% IV 21:45: ONCE, Dexter 00 Start date: 02/17/15 16:45:00, 500 ml metoprolol Yes 12.5 mg = Me moria tartrate 25 6-22 0.5 tab, l mg oral 20:24: PO, BID, 0 Herm eugenie tablet 00 Refill(s) naproxen No 500 mg [...] PO, l oral tablet 20:24: TID, PRN rmann 00 for spasms, # 30 tab, [...] tab, 0 Refill(s) Nicotine No Notes: Memoria 02-17 (Same as: l 14:00: Habitrol) Dexter 00 "Remove old patch before applicatio n of new patch" Aspirin 81 No Notes: Do Me moria MG Enteric 02-17 not crush l Coated 14:00: or chew. Dexter Tablet 00 (Same As: Ecotrin) Sodium No 1,000 mL, Memori a Chloride 02-17 Rate: 125 l 0.154 13:38: ml/hr, Dexter MEQ/ML 00 Infuse Injectable over: 8 Solution hr, Route: IV, Dosing Weight 51.051 kg, Total Volume: 1,000, Start date: 02/17/15 8:38:00, Duration: 30 day, Stop date: 03/19/15 8:37:00 Aspirin 81 No 81 mg = 1 Me moria MG Enteric 02-17 tab, PO, l Coated 02:37: Daily, # Maciej Tablet 00 90 tab, 3 Refill(s) clopidogrel Yes 75 mg = 1 M emoria 75 MG Oral -22 tab, PO, l Tablet 02:37: Daily, # Dexter [Plavix] 00 30 tab, 0 Refill(s) Enoxaparin No Notes: Navneet delgadillo 02-17 Nurse to l 02:30: ensure Dexter 00 documentat ion of patient education per anticoagul ation policy. (Same as: Lovenox) Tessalon No Notes: Memoria Perles 02-17 (Same As: l 02:08: Tessalon Dexter 00 Perles) "Do Not Crush" Acetaminoph No Notes: Do M emoria en 02-17 not exceed l 02:08: 4 gm/day. Dexter (Same as: Tylenol) Diphenhydra No Notes: Eleazar hilton mine 02-17 (Same as: l 02:08: Benadryl) Dexter 00 Dextrometho No Notes: Eleazar hilton rphan 02-17 (dextromet l Hydrobromid 02:08: horphan-gu Dexter e 2 MG/ML / 00 aifenesin Guaifenesin 10-100mg/5 20 MG/ML ml 10 ml Oral oral SOLN Solution ud) (Same as: Robitussin DM) Simethicone No Notes: Eleazar hilton 02-17 (Same as: l 02:08: Mylicon) Maciej 00 Bisacodyl No Notes: Memori a 02-17 (Same As: l 02:08: Dulcolax, Maciej 00 Bisco-Lax) Ondansetron No Notes: Eleazar hilton [...] / 02-17 (Same as: l Hydrocodone 02:06: [place] Caroline nn Bitartrate 00 325/5) Do 5 MG Oral not exceed Tablet 4gm/day of acetaminop hen. Morphine No Notes: Memoria 02-17 (Same l 02:06: as:MORPhin e Sulfate) Sodium No 1,000 mL, Memori a Chloride 02-17 Rate: 125 l 0.154 02:06: ml/hr, Dexter MEQ/ML 00 Infuse Injectable over: 8 Solution [...] 02-17 Route: l 0.9% IV 00:52: IVPB, Dexter 00 Start date: 02/16/15 19:52:00, Duration: 30 [...] 02-16 Not Crush) l 22:49: Do not Dexter 00 crush or chew. Ondansetron No Notes: Eleazar hilton 12-22 (Same as: l 21:22: Zofran) Morphine No Notes: Memoria 12-22 (Same l 21:22: as:MORPhin Dexter 00 e Sulfate) Aspirin / No Notes: [...] mg oral 20:08: PO, BID, # Herm eugenie tablet 00 90 tab, 0 Refill(s) clopidogrel [...] 0.9% -21 (Same as: l 14:00: BD Posiflush) Adenosine No 41.6178 Memor ia 4-21 mg, Route: l 03:42: IVP, ONCE, Dosing Weight 49.545, kg, Priority: Routine, Start date: 12/16/13 22:42:00, Stop date: 12/16/13 22:42:00 atorvastati No Notes: Eleazar hilton n -21 (Same As: l 03:28: Lipitor) Saline No Notes: Memoria Flush 0.9% -21 (Same as: l 03:25: BD Dexter 00 Posiflush) Nitroglycer No Notes: Eleazar hilton in 12-17 (Same l 03:25: as:Nitroqu ick, Nitrostat) "Do Not Crush" Sublingual tablet atorvastati No 20 mg = 1 M emoria n 20 mg 4-21 tab, PO, l oral tablet 01:48: Bedtime, # Maciej 00 30 tab, 0 Refill(s) clopidogrel No 75 mg = 1 M emoria 75 mg oral 4-21 tab, PO, l tablet 01:48: Daily, 0 Dexter 00 Refill(s) Metoprolol No 12.5 mg = Me moria Tartrate 25 4-21 0.5 tab, l mg oral 01:47: PO, BID, 0 Herm eugenie tablet 00 Refill(s) Aspirin Low No = 1 tab, Me moria Dose 81 mg 4-21 PO, Daily, l oral tablet 01:46: 0 Kristopher n 00 Refill(s) Sodium No 1,000 mL, Memori a Chloride 4-20 1,000 l 0.154 23:43: ml/hr, Maciej MEQ/ML [...] Chloride 4-20 1,000 l 0.154 19:36: ml/hr, Dexter MEQ/ML 00 Infuse Injectable Over: 1 Solution hr, Route: IV, ONCE, Priority: STAT, Dosing Weight 48.636 kg, Start date: 12/16/13 14:36:00, Duration: 1 doses or times, Stop date: 12/16/13 14:36:00 GI cocktail No Notes: Eleazar hilton 4-20 G.I. l 17:54: Cocktail = Dexter 00 antacid with simethicon e 22.5 mL [...] n 3-14 tab, l 02:00: Route: PO, Dexter 00 Drug form: TAB, Bedtime, Dosing Weight 63.636, kg, Start date: 11/08/13 21:00:00, Duration: 30 day, Stop date: 12/07/13 21:00:00(S nino As: Lipitor) metoprolol Yes 12.5 mg = Me moria tartrate 25 3-13 0.5 tab, l mg oral 20:52: PO, BID, # Herm eugenie tablet 00 30 tab, 0 Refill(s) clopidogrel [...] tab, PO, l Tablet 20:52: Daily, # Dexter 00 60 tab, 0 Refill(s) Plavix 0 No 75 mg, 1 Memoria 3-13 tab, l 14:00: Route: PO, Maciej 00 Drug form: TAB, Daily, Dosing Weight 63.636, kg, Start date: 11/08/13 9:00:00, Duration: 30 day, Stop date: 12/07/13 9:00:00(Sa me As: Plavix) Saline 2013- No 5 ml, Memoria Flush 0.9% 11-08 Route: l 14:00: MISC, Drug Form: INJ, Dosing Weight 63.636, kg, Q12H, Start date: 11/08/13 9:00:00, Duration: 30 day, Stop date: 12/07/13 21:00:00(S nino as: BD Posiflush) Lovenox No 40 mg, 0.4 Eleazar hilton 11-08 mL, Route: l 14:00: SUB-Q, Drug form: INJ, Q24H, Dosing Weight 63.636, kg, Start date: 11/08/13 9:00:00, Duration: 30 day, Stop date: 12/07/13 9:00:00(Sa me as: Lovenox) Tylenol No 650 mg, 2 Memor ia 3- tab, l 13:15: Route: PO, Drug form: TAB, Q4H, Dosing Weight 63.636, kg, PRN Pain, Start date: 11/08/13 8:15:00, Duration: 30 day, Stop date: 12/08/13 8:14:00Do not exceed 4 gm/day. (Same as: Tylenol) Saline No 5 ml, Memoria Flush 0.9% 11-08 Route: l 12:06: MISC, Drug Form: INJ, Dosing Weight 63.636, kg, PRN, PRN Line Flush, Start date: 11/08/13 7:06:00, Duration: 30 day, Stop date: 12/08/13 7:05:00(Sa me as: BD Posiflush) Nitroglycer No 0.4 mg, 1 M emoria in 3-13 tab, l 12:06: Route: SL, Drug form: TAB, Q5Min, Dosing Weight 63.636, kg, PRN Chest Pain, Start date: 11/08/13 7:06:00, Duration: 30 day, Stop date: 12/08/13 7:01:00(Sa me as:Nitroqu ick, Nitrostat) "Do Not Crush" Sublingual tablet Aspirin 81 2014-0 No 324 mg, Eleazar hilton MG Chewable 3-13 Route: PO, l Tablet 10:15: Drug form: Caroline nn 00 CHEWTAB, ONCE, Dosing Weight 63.636, kg, Priority: STAT, Start date: 11/08/13 5:15:00, Stop date: 11/08/13 5:15:00 Immunizations Ordered Immunization Filled Immunization Date Status Commen ts Source Name Name pneumococcal 2012-02-17 Completed [facility] 23-valent vaccine 20:57:00 Maciej Vital Signs Vital Name Observation Time Observation Value Comments Source Systolic blood 2020-10-15 10:45:00 114 mm[Hg] [facility] Diastolic blood 2020-10-15 10:45:00 80 mm[Hg] [facility] Heart rate 2020-10-15 10:45:00 76 /min [facility] Body temperature 2020-10-15 10:45:00 37.44 [facility] 2020-10-15 10:45:00 18 /min [facility] Oxygen saturation in 2020-10-15 10:45:00 95 /min [facility] blood by [facility] Pulse oximetry Branch Body height 2020-10-15 07:57:00 152.4 cm [facility] Body weight 2020-10-15 07:57:00 40.824 kg [facility] BMI 2020-10-15 07:57:00 17.58 kg/m2 [facility] Systolic blood 2020-10-15 10:45:00 114 mm[Hg] [facility] Diastolic blood 2020-10-15 10:45:00 80 mm[Hg] [facility] Heart rate 2020-10-15 10:45:00 76 /min [facility] Body temperature 2020-10-15 10:45:00 37.44 [facility] Respiratory rate 2020-10-15 10:45:00 18 /min [facility] O[facility] in 2020-10-15 10:45:00 95 /min [facility] by [facility] Pulse oximetry Branch Body height 2020-10-15 07:57:00 152.4 cm [facility] Body weight 2020-10-15 07:57:00 40.824 kg [facility] BMI 2020-10-15 07:57:00 17.58 kg/m2 [facility] Systolic (mm Hg) 2017-01-19 23:16:00 Eleazar rial Maciej Diastolic (mm Hg) 2017-01-19 23:16:00 Mem orial Maciej Respitory Rate 2017-01-19 23:16:00 Memori al Dexter Systolic (mm Hg) 2017-01-19 22:28:00 Eleazar rial Maciej Diastolic (mm Hg) 2017-01-19 22:28:00 Mem orial Dexter Respitory Rate 2017-01-19 22:28:00 Memori al Dexter Respitory Rate 2017-01-19 21:00:00 Memori al Maciej Systolic (mm Hg) 2017-01-19 20:00:00 Eleazar rial Maciej Diastolic (mm Hg) 2017-01-19 20:00:00 Mem orial Dexter Weight 2017-01-19 17:23:00 [facility] Dexter BMI Calculated 2017-01-19 17:23:00 Memori al Dexter Height 2017-01-19 17:23:00 152.4 cm [facility] Maciej Temperature Oral (F) 2017-01-19 17:23:00 97.0 F [facility] Dexter Heart Rate 2017-01-19 17:23:00 [facility] Dexter Systolic (mm Hg) 2017-01-17 02:10:00 Eleazar rial Dexter Diastolic (mm Hg) 2017-01-17 02:10:00 Mem orial Dexter Respitory Rate 2017-01-17 02:10:00 Memori al Dexter Systolic (mm Hg) 2017-01-17 01:21:00 Eleazar rial Dexter Diastolic (mm Hg) 2017-01-17 01:21:00 Mem orial Dexter Respitory Rate 2017-01-17 01:21:00 Memori al Maciej Temperature Oral (F) 2017-01-17 01:21:00 98.1 F [facility] Dexter Systolic (mm Hg) 2017-01-17 00:28:00 Eleazar rial Maciej Diastolic (mm Hg) 2017-01-17 00:28:00 Mem orial Dexter Respitory Rate 2017-01-17 00:28:00 Memori al Maciej Heart Rate 2017-01-16 23:24:00 [facility] Dexter Temperature Oral (F) 2017-01-16 23:24:00 98 F [facility] Maciej Weight 2017-01-16 23:24:00 [facility] Maciej Heart Rate 2016-11-29 03:44:00 [facility] Maciej Systolic (mm Hg) 2016-11-29 03:44:00 Eleazar rial Dexter Diastolic (mm Hg) 2016-11-29 03:44:00 Mem orial Dexter Respitory Rate 2016-11-29 03:44:00 Memori al Dexter Temperature Oral (F) 2016-11-29 03:44:00 98.7 F [facility] Maciej Heart Rate 2016-11-29 03:24:00 [facility] Maciej Respitory Rate 2016-11-29 03:24:00 Memori al Maciej Systolic (mm Hg) 2016-11-29 03:24:00 Eleazar rial Maciej Diastolic (mm Hg) 2016-11-29 03:24:00 Mem orial Dexter Heart Rate 2016-11-29 02:51:00 [facility] Dexter Respitory Rate 2016-11-29 02:51:00 Memori al Dexter Systolic (mm Hg) 2016-11-29 02:51:00 Eleazar rial Dexter Diastolic (mm Hg) 2016-11-29 02:51:00 Mem orial Maciej Weight 2016-11-29 00:21:00 [facility] Maciej BMI Calculated 2016-11-29 00:21:00 Memori al Maciej Height 2016-11-29 00:21:00 152.4 cm [facility] Dexter Temperature Oral (F) 2016-11-29 00:21:00 98.6 F [facility] Maciej Respitory Rate 2016-11-07 02:47:00 Memori al Dexter Heart Rate 2016-11-07 02:47:00 [facility] Maciej Temperature Oral (F) 2016-11-07 02:47:00 98.2 F [facility] Maciej Systolic (mm Hg) 2016-11-07 02:47:00 Eleazar rial Maciej Diastolic (mm Hg) 2016-11-07 02:47:00 Mem orial Dexter Heart Rate 2016-11-07 02:22:00 [facility] Maciej Respitory Rate 2016-11-07 02:22:00 Memori al Maciej Systolic (mm Hg) 2016-11-07 02:22:00 Eleazar rial Dexter Diastolic (mm Hg) 2016-11-07 02:22:00 Mem orial Dexter Weight 2016-11-06 23:37:00 [facility] Maciej Heart Rate 2016-11-06 23:37:00 [facility] Maciej Temperature Oral (F) 2016-11-06 23:37:00 98.3 F [facility] Dexter Respitory Rate 2016-11-06 23:37:00 Memori al Dexter Systolic (mm Hg) 2016-11-06 23:37:00 Eleazar rial Maciej Diastolic (mm Hg) 2016-11-06 23:37:00 Mem orial Dexter Respitory Rate 2016-10-11 18:24:00 Memori al Maciej Temperature Oral (F) 2016-10-11 18:24:00 97.9 F [facility] Maciej Systolic (mm Hg) 2016-10-11 18:24:00 Eleazar rial Dexter Diastolic (mm Hg) 2016-10-11 18:24:00 Mem orial Maciej Heart Rate 2016-10-11 18:24:00 [facility] Dexter Heart Rate 2016-10-11 13:53:00 [facility] Dexter Systolic (mm Hg) 2016-10-11 13:53:00 Eleazar rial Dexter Diastolic (mm Hg) 2016-10-11 13:53:00 Mem orial Maciej Temperature Oral (F) 2016-10-11 13:53:00 98.1 F [facility] Dexter Temperature Oral (F) 2016-10-11 10:16:00 99.0 F [facility] Dexter Respitory Rate 2016-10-11 10:16:00 Memori al Dexter Heart Rate 2016-10-11 10:16:00 [facility] Dexter Systolic (mm Hg) 2016-10-11 10:16:00 Eleazar rial Dexter Diastolic (mm Hg) 2016-10-11 10:16:00 Mem orial Dexter Weight 2016-10-11 06:46:00 [facility] Maciej BMI Calculated 2016-10-11 06:46:00 Memori al Dexter Height 2016-10-11 06:46:00 152.4 cm [facility] Dexter Respitory Rate 2016-10-11 06:39:00 Memori al Dexter Height 2016-10-10 17:48:00 152.4 cm [facility] Dexter BMI Calculated 2016-10-10 17:48:00 Memori al Maciej Weight 2016-10-10 17:48:00 [facility] Maciej BMI Calculated 2016-09-15 04:26:00 Memori al Maciej Weight 2016-09-15 04:26:00 [facility] Maciej Height 2016-09-15 04:26:00 152.4 cm [facility] Maciej Systolic (mm Hg) 2016-09-15 04:26:00 Eleazar rial Dexter Diastolic (mm Hg) 2016-09-15 04:26:00 Mem orial Dexter Respitory Rate 2016-09-15 04:26:00 Memori al Maciej Heart Rate 2016-09-15 04:26:00 [facility] Dexter Temperature Oral (F) 2016-09-15 04:26:00 98.5 F [facility] Dexter Respitory Rate 2016-04-14 06:22:00 Memori al Dexter Temperature Oral (F) 2016-04-14 06:22:00 98.7 F [facility] Dexter Systolic (mm Hg) 2016-04-14 06:22:00 Eleazar rial Maciej Diastolic (mm Hg) 2016-04-14 06:22:00 Mem orial Maciej Heart Rate 2016-04-14 06:22:00 [facility] Maciej BMI Calculated 2016-04-14 02:12:00 Memori al Dexter Weight 2016-04-14 02:12:00 [facility] Maciej Temperature Oral (F) 2016-04-14 02:12:00 99.2 F [facility] Dexter Height 2016-04-14 02:12:00 152.4 cm [facility] Maciej Respitory Rate 2016-04-14 02:12:00 Memori al Dexter Systolic (mm Hg) 2016-04-14 02:12:00 Eleazar rial Maciej Diastolic (mm Hg) 2016-04-14 02:12:00 Mem orial Maciej Heart Rate 2016-04-14 02:12:00 [facility] Maciej Temperature Oral (F) 2016-03-12 17:00:00 97.8 F [facility] Dexter Heart Rate 2016-03-12 17:00:00 [facility] Maciej Respitory Rate 2016-03-12 17:00:00 Memori al Dexter Systolic (mm Hg) 2016-03-12 17:00:00 Eleazar rial Maciej Diastolic (mm Hg) 2016-03-12 17:00:00 Mem orial Dexter Respitory Rate 2016-03-12 12:54:00 Memori al Dexter Systolic (mm Hg) 2016-03-12 12:30:00 Eleazar rial Dexter Diastolic (mm Hg) 2016-03-12 12:30:00 Mem orial Dexter Respitory Rate 2016-03-12 12:30:00 Memori al Maciej Heart Rate 2016-03-12 12:30:00 [facility] Maciej Temperature Oral (F) 2016-03-12 12:30:00 98.2 F [facility] Maciej Temperature Oral (F) 2016-03-12 10:26:00 98.0 F [facility] Dexter Heart Rate 2016-03-12 10:26:00 [facility] Dexter Systolic (mm Hg) 2016-03-12 10:26:00 Eleazar rial Dexter Diastolic (mm Hg) 2016-03-12 10:26:00 Mem orial Maciej Height 2016-03-11 19:45:00 152.4 cm [facility] Dexter BMI Calculated 2016-03-11 19:45:00 Memori al Dexter Weight 2016-03-11 19:45:00 [facility] Maciej Respitory Rate 2016-03-06 01:44:00 Memori al Dexter Systolic (mm Hg) 2016-03-06 01:44:00 Eleazar rial Dexter Diastolic (mm Hg) 2016-03-06 01:44:00 Mem orial Maciej Heart Rate 2016-03-06 01:44:00 [facility] Maciej Temperature Oral (F) 2016-03-06 01:44:00 98.1 F [facility] Dexter BMI Calculated 2016-03-05 21:55:00 Memori al Maciej Weight 2016-03-05 21:55:00 [facility] Maciej Systolic (mm Hg) 2016-03-05 21:55:00 Eleazar rial Dexter Diastolic (mm Hg) 2016-03-05 21:55:00 Mem orial Maciej Heart Rate 2016-03-05 21:55:00 [facility] Maciej Height 2016-03-05 21:55:00 152.4 cm [facility] Dexter Temperature Oral (F) 2016-03-05 21:55:00 98.3 F [facility] Dexter Respitory Rate 2016-03-05 21:55:00 Memori al Maciej Respitory Rate 2016-03-01 01:23:00 Memori al Dexter Systolic (mm Hg) 2016-03-01 01:23:00 Eleazar rial Maciej Diastolic (mm Hg) 2016-03-01 01:23:00 Mem orial Maciej Temperature Oral (F) 2016-03-01 01:23:00 98.2 F [facility] Maciej Heart Rate 2016-03-01 01:23:00 [facility] Maciej Respitory Rate 2016-02-29 23:25:00 Memori al Dexter Temperature Oral (F) 2016-02-29 22:27:00 98.3 F [facility] Heart Rate 2016-02-29 22:27:00 [facility] Respitory Rate 2016-02-29 22:27:00 [facility] Systolic (mm Hg) 2016-02-29 22:27:00 Eleazar rial Maciej Diastolic (mm Hg) 2016-02-29 22:27:00 [facility] Respitory Rate 2015-09-05 14:47:00 [facility] Systolic (mm Hg) 2015-09-05 14:47:00 Eleazar [facility]ter Diastolic (mm Hg) 2015-09-05 14:47:00 [facility] Heart Rate 2015-09-05 14:47:00 [facility] Weight 2015-09-05 11:00:00 [facility] Systolic (mm Hg) 2015-09-05 10:00:00 Eleazar rial Maciej Diastolic (mm Hg) 2015-09-05 10:00:00 [facility] Respitory Rate 2015-09-05 10:00:00 [facility] Heart Rate 2015-09-05 10:00:00 [facility] Respitory Rate 2015-09-05 06:00:00 [facility] Systolic (mm Hg) 2015-09-05 06:00:00 Eleazar rial Maciej Diastolic (mm Hg) 2015-09-05 06:00:00 [facility] Heart Rate 2015-09-05 06:00:00 [facility] Weight 2015-09-04 11:00:00 [facility] Weight 2015-09-04 09:15:00 [facility] BMI Calculated 2015-09-04 09:15:00 [facility] Height 2015-09-04 09:15:00 160.02 cm [facility] Temperature Oral (F) 2015-09-04 09:06:00 98.3 F [facility] Height 2015-09-04 03:35:00 152.4 cm [facility] BMI Calculated 2015-09-04 03:35:00 [facility] Temperature Oral (F) 2015-09-04 03:35:00 98.7 F [facility] Systolic (mm Hg) 2015-07-16 13:56:00 Eleazar rial Maciej Diastolic (mm Hg) 2015-07-16 13:56:00 [facility]iej Respitory Rate 2015-07-16 13:56:00 [facility] Heart Rate 2015-07-16 13:56:00 [facility] Temperature Oral (F) 2015-07-16 13:56:00 98.0 F [facility] Systolic (mm Hg) 2015-07-16 13:55:00 Eleazar [facility]ter Diastolic (mm Hg) 2015-07-16 13:55:00 [facility] Respitory Rate 2015-07-16 13:55:00 [facility] Heart Rate 2015-07-16 13:55:00 [facility] Temperature Oral (F) 2015-07-16 13:55:00 97.4 F [facility] Systolic (mm Hg) 2015-07-16 10:00:00 [facility] Diastolic (mm Hg) 2015-07-16 10:00:00 [facility] Respitory Rate 2015-07-16 10:00:00 [facility] Heart Rate 2015-07-16 10:00:00 [facility] Temperature Oral (F) 2015-07-16 10:00:00 97.9 F [facility] Height 2015-07-16 01:30:00 152.4 cm [facility] Weight 2015-07-16 01:30:00 [facility] BMI Calculated 2015-07-16 01:30:00 [facility] Height 2015-07-15 18:10:00 152.4 cm [facility] BMI Calculated 2015-07-15 18:10:00 [facility] Weight 2015-07-15 18:10:00 [facility] Weight 2015-07-05 04:10:00 [facility] Height 2015-07-05 04:10:00 152.4 cm [facility] BMI Calculated 2015-07-05 04:10:00 [facility] Temperature Oral (F) 2015-07-05 04:10:00 98.3 F [facility] Respitory Rate 2015-07-05 04:10:00 [facility] Heart Rate 2015-07-05 04:10:00 [facility] Systolic (mm Hg) 2015-07-05 04:10:00 [facility] Diastolic (mm Hg) 2015-07-05 04:10:00 [facility] BMI Calculated 2015-07-04 18:05:00 [facility] Weight 2015-07-04 18:05:00 [facility] Height 2015-07-04 18:05:00 152.4 cm [facility] Temperature Oral (F) 2015-07-04 18:05:00 97.9 F [facility] Respitory Rate 2015-07-04 18:05:00 [facility] Heart Rate 2015-07-04 18:05:00 [facility] Systolic (mm Hg) 2015-07-04 18:05:00 [facility] Diastolic (mm Hg) 2015-07-04 18:05:00 [facility] BMI Calculated 2015-06-04 04:13:00 [facility] Weight 2015-06-04 04:13:00 [facility] Height 2015-06-04 04:13:00 152.4 cm [facility] Temperature Oral (F) 2015-06-04 04:13:00 98.8 F [facility] Respitory Rate 2015-06-04 04:13:00 [facility] Heart Rate 2015-06-04 04:13:00 [facility] Systolic (mm Hg) 2015-06-04 04:13:00 [facility] Diastolic (mm Hg) 2015-06-04 04:13:00 [facility] Systolic (mm Hg) 2015-05-18 22:47:00 [facility] Diastolic (mm Hg) 2015-05-18 22:47:00 [facility] Temperature Oral (F) 2015-05-18 22:47:00 96.6 F [facility] Heart Rate 2015-05-18 22:47:00 [facility] Respitory Rate 2015-05-18 22:47:00 [facility] Systolic (mm Hg) 2015-05-18 22:30:00 [facility] Diastolic (mm Hg) 2015-05-18 22:30:00 [facility] Systolic (mm Hg) 2015-05-18 21:00:00 [facility] Diastolic (mm Hg) 2015-05-18 21:00:00 [facility] Temperature Oral (F) 2015-05-18 21:00:00 98.1 F [facility] Respitory Rate 2015-05-18 21:00:00 [facility] Temperature Oral (F) 2015-05-18 19:21:00 98.2 F [facility] Heart Rate 2015-05-18 19:21:00 [facility] Respitory Rate 2015-05-18 19:21:00 [facility] Heart Rate 2015-05-18 17:10:00 [facility] Respitory Rate 2015-05-09 20:00:00 [facility] Systolic (mm Hg) 2015-05-09 20:00:00 [facility] Diastolic (mm Hg) 2015-05-09 20:00:00 [facility] Temperature Oral (F) 2015-05-09 20:00:00 97.5 F [facility] Temperature Oral (F) 2015-05-09 19:10:00 97.5 F [facility] Systolic (mm Hg) 2015-05-09 19:10:00 [facility] Diastolic (mm Hg) 2015-05-09 19:10:00 [facility] Respitory Rate 2015-05-09 19:10:00 [facility] Systolic (mm Hg) 2015-05-09 18:41:00 [facility] Diastolic (mm Hg) 2015-05-09 18:41:00 [facility] Weight 2015-05-09 17:37:00 [facility] BMI Calculated 2015-05-09 17:37:00 [facility] Height 2015-05-09 17:37:00 152.4 cm [facility] Temperature Oral (F) 2015-05-09 17:37:00 98.9 F [facility] Respitory Rate 2015-05-09 17:37:00 [facility] Heart Rate 2015-05-09 17:37:00 [facility] Systolic (mm Hg) 2015-05-03 00:04:00 [facility] Diastolic (mm Hg) 2015-05-03 00:04:00 [facility] Heart Rate 2015-05-03 00:04:00 [facility] Respitory Rate 2015-05-03 00:04:00 [facility] Temperature Oral (F) 2015-05-03 00:04:00 98.5 F [facility] Heart Rate 2015-05-02 21:17:00 [facility] Respitory Rate 2015-05-02 21:17:00 [facility] Systolic (mm Hg) 2015-05-02 21:17:00 [facility] Diastolic (mm Hg) 2015-05-02 21:17:00 [facility] Heart Rate 2015-05-02 20:24:00 [facility] Temperature Oral (F) 2015-05-02 20:24:00 98.1 F [facility] Systolic (mm Hg) 2015-05-02 20:24:00 [facility] Diastolic (mm Hg) 2015-05-02 20:24:00 [facility] Respitory Rate 2015-05-02 20:24:00 [facility] Temperature Oral (F) 2015-05-02 18:35:00 98.9 F [facility] Systolic (mm Hg) 2015-04-11 19:45:00 [facility] Diastolic (mm Hg) 2015-04-11 19:45:00 [facility] Temperature Oral (F) 2015-04-11 19:45:00 98.7 F [facility] Respitory Rate 2015-04-11 19:45:00 [facility] Heart Rate 2015-04-11 19:45:00 [facility] Weight 2015-04-11 16:35:00 [facility] Temperature Oral (F) 2015-04-11 16:35:00 98.4 F [facility] Systolic (mm Hg) 2015-04-11 16:35:00 [facility] Diastolic (mm Hg) 2015-04-11 16:35:00 [facility] Respitory Rate 2015-04-11 16:35:00 [facility] Heart Rate 2015-04-11 16:35:00 [facility] Systolic (mm Hg) 2015-03-30 22:06:00 [facility] Diastolic (mm Hg) 2015-03-30 22:06:00 [facility] Temperature Oral (F) 2015-03-30 22:06:00 97.9 F [facility] Heart Rate 2015-03-30 22:06:00 [facility] Respitory Rate 2015-03-30 22:06:00 [facility] BMI Calculated 2015-03-30 19:44:00 [facility] Height 2015-03-30 19:44:00 152.4 cm [facility] Systolic (mm Hg) 2015-03-30 19:44:00 [facility] Diastolic (mm Hg) 2015-03-30 19:44:00 [facility] Respitory Rate 2015-03-30 19:44:00 [facility] Heart Rate 2015-03-30 19:44:00 [facility] Weight 2015-03-30 19:44:00 [facility] Temperature Oral (F) 2015-03-30 19:44:00 97.9 F [facility] Respitory Rate 2015-03-24 21:57:00 [facility] Temperature Oral (F) 2015-03-24 21:57:00 97.9 F [facility] Heart Rate 2015-03-24 21:57:00 [facility] Systolic (mm Hg) 2015-03-24 21:57:00 [facility] Diastolic (mm Hg) 2015-03-24 21:57:00 [facility] Heart Rate 2015-03-24 17:28:00 [facility] Temperature Oral (F) 2015-03-24 17:28:00 98.8 F [facility] Respitory Rate 2015-03-24 17:28:00 [facility] Systolic (mm Hg) 2015-03-24 17:28:00 [facility] Diastolic (mm Hg) 2015-03-24 17:28:00 [facility] Heart Rate 2015-03-24 13:08:00 [facility] Temperature Oral (F) 2015-03-24 13:08:00 98.4 F [facility] Respitory Rate 2015-03-24 13:08:00 [facility] Systolic (mm Hg) 2015-03-24 13:08:00 [facility] Diastolic (mm Hg) 2015-03-24 13:08:00 [facility] BMI Calculated 2015-03-22 01:41:00 [facility] Weight 2015-03-22 01:41:00 [facility] Height 2015-03-22 01:41:00 152.4 cm [facility] BMI Calculated 2015-03-21 18:42:00 [facility] Weight 2015-03-21 18:42:00 [facility] Height 2015-03-21 18:42:00 152.4 cm [facility] Systolic (mm Hg) 2015-03-11 22:39:00 [facility] Diastolic (mm Hg) 2015-03-11 22:39:00 [facility] Respitory Rate 2015-03-11 22:39:00 [facility] Heart Rate 2015-03-11 22:39:00 [facility] Temperature Oral (F) 2015-03-11 22:39:00 98.1 F [facility] BMI Calculated 2015-03-11 19:44:00 [facility] Weight 2015-03-11 19:44:00 [facility] Systolic (mm Hg) 2015-03-11 19:44:00 [facility] Diastolic (mm Hg) 2015-03-11 19:44:00 [facility] Temperature Oral (F) 2015-03-11 19:44:00 97.9 F [facility] Heart Rate 2015-03-11 19:44:00 [facility] Respitory Rate 2015-03-11 19:44:00 [facility] Height 2015-03-11 19:44:00 152.4 cm [facility] Temperature Oral (F) 2015-03-05 10:15:00 97.9 F [facility] Systolic (mm Hg) 2015-03-05 10:15:00 [facility] Diastolic (mm Hg) 2015-03-05 10:15:00 [facility] Respitory Rate 2015-03-05 10:15:00 [facility] Respitory Rate 2015-03-05 09:53:00 [facility] Temperature Oral (F) 2015-03-05 09:53:00 97.8 F [facility] Systolic (mm Hg) 2015-03-05 09:53:00 [facility] Diastolic (mm Hg) 2015-03-05 09:53:00 [facility] Respitory Rate 2015-03-05 06:30:00 [facility] Systolic (mm Hg) 2015-03-05 06:30:00 [facility] Diastolic (mm Hg) 2015-03-05 06:30:00 [facility] Temperature Oral (F) 2015-03-05 06:20:00 97.7 F [facility] Heart Rate 2015-03-05 06:20:00 [facility] Heart Rate 2015-03-05 05:46:00 [facility] Height 2015-03-05 05:46:00 152.4 cm [facility] BMI Calculated 2015-03-05 05:46:00 [facility] Weight 2015-03-05 05:46:00 [facility] Systolic (mm Hg) 2015-02-25 20:55:00 [facility] Diastolic (mm Hg) 2015-02-25 20:55:00 [facility] Temperature Oral (F) 2015-02-25 20:55:00 97.9 F [facility] Heart Rate 2015-02-25 20:55:00 [facility] Respitory Rate 2015-02-25 20:55:00 [facility] Temperature Oral (F) 2015-02-25 17:18:00 98 F [facility] Heart Rate 2015-02-25 17:18:00 [facility] Respitory Rate 2015-02-25 17:18:00 [facility] Systolic (mm Hg) 2015-02-25 17:18:00 [facility] Diastolic (mm Hg) 2015-02-25 17:18:00 [facility] Systolic (mm Hg) 2015-02-25 12:00:00 [facility] Diastolic (mm Hg) 2015-02-25 12:00:00 [facility] Respitory Rate 2015-02-25 12:00:00 [facility] Heart Rate 2015-02-25 12:00:00 [facility] Temperature Oral (F) 2015-02-25 12:00:00 97.8 F [facility] Height 2015-02-24 16:11:00 152.4 cm [facility] BMI Calculated 2015-02-24 16:11:00 [facility] Weight 2015-02-24 16:11:00 [facility] Heart Rate 2015-02-18 20:17:00 [facility] Temperature Oral (F) 2015-02-18 20:17:00 97.3 F [facility] Systolic (mm Hg) 2015-02-18 20:17:00 [facility] Diastolic (mm Hg) 2015-02-18 20:17:00 [facility] Respitory Rate 2015-02-18 20:17:00 [facility] Heart Rate 2015-02-18 16:13:00 [facility] Respitory Rate 2015-02-18 16:13:00 [facility] Systolic (mm Hg) 2015-02-18 16:13:00 [facility] Diastolic (mm Hg) 2015-02-18 16:13:00 [facility] Temperature Oral (F) 2015-02-18 16:13:00 97.5 F [facility] Temperature Oral (F) 2015-02-18 12:19:00 97.9 F [facility] Systolic (mm Hg) 2015-02-18 12:19:00 [facility] Diastolic (mm Hg) 2015-02-18 12:19:00 [facility] Respitory Rate 2015-02-18 12:19:00 [facility] Heart Rate 2015-02-18 12:19:00 [facility] Weight 2015-02-17 02:30:00 [facility] Height 2015-02-17 02:30:00 152.4 cm [facility] BMI Calculated 2015-02-17 02:30:00 [facility] Weight 2015-02-16 20:42:00 [facility] BMI Calculated 2015-02-16 20:42:00 [facility] Height 2015-02-16 20:42:00 152.4 cm [facility] Respitory Rate 2013-12-25 19:27:00 [facility] Heart Rate 2013-12-25 19:27:00 [facility] Diastolic (mm Hg) 2013-12-25 19:27:00 [facility] Systolic (mm Hg) 2013-12-25 19:27:00 [facility] Temperature Oral (F) 2013-12-25 19:27:00 98.3 F [facility] BMI Calculated 2013-12-25 16:48:00 [facility] Weight 2013-12-25 16:48:00 [facility] Height 2013-12-25 16:48:00 152.4 cm [facility] Respitory Rate 2013-12-25 16:48:00 [facility] Heart Rate 2013-12-25 16:48:00 [facility] Diastolic (mm Hg) 2013-12-25 16:48:00 [facility] Systolic (mm Hg) 2013-12-25 16:48:00 [facility] Temperature Oral (F) 2013-12-25 16:48:00 98.8 F [facility] Heart Rate 2013-12-23 00:27:00 [facility] Systolic (mm Hg) 2013-12-23 00:27:00 [facility] Respitory Rate 2013-12-23 00:27:00 [facility] Temperature Oral (F) 2013-12-23 00:27:00 98.3 F [facility] Diastolic (mm Hg) 2013-12-23 00:27:00 [facility] Diastolic (mm Hg) 2013-12-22 23:06:00 [facility] Temperature Oral (F) 2013-12-22 23:06:00 98.4 F [facility] Systolic (mm Hg) 2013-12-22 23:06:00 [facility] Respitory Rate 2013-12-22 23:06:00 [facility] Heart Rate 2013-12-22 23:06:00 [facility] Weight 2013-12-22 20:46:00 [facility] Temperature Oral (F) 2013-12-22 20:46:00 98.7 F [facility] Systolic (mm Hg) 2013-12-22 20:46:00 [facility] Diastolic (mm Hg) 2013-12-22 20:46:00 [facility] Respitory Rate 2013-12-22 20:46:00 [facility] Heart Rate 2013-12-22 20:46:00 [facility] Diastolic (mm Hg) 2013-12-17 20:30:00 [facility] Respitory Rate 2013-12-17 20:30:00 [facility] Systolic (mm Hg) 2013-12-17 20:30:00 [facility] Systolic (mm Hg) 2013-12-17 19:06:00 [facility] Diastolic (mm Hg) 2013-12-17 19:06:00 [facility] Respitory Rate 2013-12-17 19:06:00 [facility] Systolic (mm Hg) 2013-12-17 18:54:00 [facility] Diastolic (mm Hg) 2013-12-17 18:54:00 [facility] Temperature Oral (F) 2013-12-17 17:09:00 98.1 F [facility] Respitory Rate 2013-12-17 16:50:00 [facility] Temperature Oral (F) 2013-12-17 09:00:00 97.1 F [facility] Height 2013-12-17 02:58:00 152.4 cm [facility] Weight 2013-12-17 02:58:00 [facility] BMI Calculated 2013-12-17 02:58:00 [facility] Temperature Oral (F) 2013-12-17 02:55:00 98.1 F [facility] Height 2013-12-16 17:19:00 152.4 cm [facility] BMI Calculated 2013-12-16 17:19:00 [facility] Weight 2013-12-16 17:19:00 [facility] Heart Rate 2013-12-16 17:19:00 [facility] Temperature Oral (F) 2013-11-08 21:00:00 98 F [facility] Diastolic (mm Hg) 2013-11-08 21:00:00 [facility] Respitory Rate 2013-11-08 21:00:00 [facility] Systolic (mm Hg) 2013-11-08 21:00:00 [facility] Temperature Oral (F) 2013-11-08 19:13:00 97.6 F [facility] Diastolic (mm Hg) 2013-11-08 19:13:00 [facility] Systolic (mm Hg) 2013-11-08 19:13:00 [facility] Respitory Rate 2013-11-08 19:13:00 [facility] Systolic (mm Hg) 2013-11-08 16:18:00 [facility] Respitory Rate 2013-11-08 16:18:00 [facility] Diastolic (mm Hg) 2013-11-08 16:18:00 [facility] Temperature Oral (F) 2013-11-08 11:34:00 99.0 F [facility] Heart Rate 2013-11-08 11:34:00 [facility] Heart Rate 2013-11-08 08:04:00 [facility] BMI Calculated 2013-11-08 04:51:00 [facility] Height 2013-11-08 04:51:00 152.4 cm [facility] Weight 2013-11-08 04:51:00 [facility] Heart Rate 2013-11-08 04:51:00 [facility] Procedures Procedure Date / Time Performing Clinician Source Performed Cardiac catheterization [facility] procedure Stent placement<sup>1</sup> Eleazar rial [facility] Plan of Care Planned Activity Planned Date Details Comments Source Future Scheduled Test 2021-05-29 IMM Influenza Seasonal [facility] 00:00:00 May to October (>/= 19 yrs) [code = IMM Influenza Seasonal May to October (>/= 19 yrs)] Future Scheduled Test 2015 IMM Pneumococcal Age 65 [facility] 00:00:00 and Up [code = IMM Pneumococcal Age 65 and Up] Future Scheduled Test 2000 Screening for malignant [facility] 00:00:00 neoplasm of colon (procedure) [code = 348763175] Future Scheduled Test 1990 Breast Cancer Scrn [facility] 00:00:00 (Yearly) [code = Breast Cancer Scrn (Yearly)] Future Scheduled Test 1962 COVID-19 Vaccine (1) [facility] 00:00:00 [code = COVID-19 Vaccine (1)] Encounters Start End Encounter Admission Attending Care Care Encounter Source Date/Time Date/Time Type Type Clinicians Facility Department ID 2020-10-15 2020-10-15 Emergency Critical access hospital [id number] [facility] 02:02:00 04:45:00 Wilberto Middleton [place] [id number] ity [facility] [id number] [facility] [id number] [address] 2020-10-15 2020-10-15 [facility] [id number] 02:02:00 04:45:00 Wilberto Freitas [id number] [place] [id number] [place] [id number] 2020-10-15 2020-10-15 Emergency X CONNOR TNJUN [facility] [id number] [facility] 02:02:00 02:02:00 WILBERTO streeter [facility] 2020-01-21 2020-01-21 Outpatient E [facility] [id number] [facility] 05:31:00 05:31:00 2019-10-15 2019-10-15 Emergency E [facility] [id number] [facility] 13:12:00 13:12:00 2019-05-20 2019-05-20 Emergency E [facility] [id number] [facility] 15:19:00 15:19:00 2019-02-25 2019-02-25 Emergency E [facility] [id number] [facility] 10:56:00 10:56:00 2018-08-21 2018-08-21 Emergency [facility] [id number] [place] 18:32:58 18:32:58 Health 2018-08-21 2018-08-21 Emergency [facility] [id number] [place] 17:47:59 17:47:59 Health 2018-08-21 2018-08-21 Emergency [facility] [id number] [place] 16:16:06 16:16:06 Health 2018-08-16 2018-08-16 Emergency [facility] [id number] [place] 22:04:00 22:04:00 [facility] 2018-08-16 2018-08-16 Emergency [facility] [id number] [place] 21:21:42 21:21:42 Health 2018-05-18 2018-05-18 Emergency [facility] [id number] [place] 14:51:52 14:51:52 Health 2018-03-08 2018-03-08 Emergency [facility] [id number] [place] 15:12:17 15:12:17 Health 2018-01-16 2018-01-16 Emergency [facility] [id number] [place] 17:53:03 17:53:03 Health 2018-01-16 2018-01-16 Emergency [facility] [id number] [place] 00:00:00 00:00:00 [facility] 2018-01-16 2018-01-16 Outpatient [facility] [id number] [address] [place] [address] 00:00:00 00:00:00 [facility] 2017-11-11 2017-11-11 Emergency E [facility] [id number] 16:37:00 16:37:00 [place] [facility] 2017-01-19 2017-01-19 [facility] [id number] [facility] 17:18:00 23:37:00 r Maciej 34 l [facility] 2017-01-16 2017-01-17 [facility] [id number] [facility] 23:22:00 02:34:00 r Maciej 33 l [facility] 2016-11-29 2016-11-29 [facility] [id number] [facility] 00:17:00 04:13:00 geovanny Wing 32 l [facility] 2016-11-06 2016-11-07 [facility] [id number] [facility] 23:34:00 03:03:00 r Maciej 31 l [facility] 2016-10-10 2016-10-11 Observatio [facility] [id number] [facility] 17:45:00 19:54:00 n geovanny Wing 30 [facility] 2016-09-15 2016-09-15 Emergency [facility] [id number] [facility] 03:19:00 06:56:00 r Maciej 29 l [facility] 2016-04-14 2016-04-14 Emergency [facility] [id number] [facility] 02:11:00 06:37:00 r Maciej 28 [facility] 2016-03-11 2016-03-12 OBS [facility] [id number] [facility] 19:41:00 20:25:00 Observatio r Maciej 27 l n Patient [facility] 2016-03-05 2016-03-06 EC [facility] [id number] [facility] 21:54:00 02:21:00 Emergency r Maciej 26 l [facility] 2016-02-29 2016-03-01 EC [facility] [id number] [facility] 22:25:00 01:29:00 Emergency r Maciej 25 l [facility] 2015-09-04 2015-09-05 OBS [facility] [id number] [facility] 03:30:00 16:26:00 Observatio r Maciej 24 l n Patient [facility] 2015-07-15 2015-07-16 OBS [facility] [id number] [facility] 18:00:00 21:30:00 Observatio r Dexter 23 l n Patient [facility] 2015-07-05 2015-07-05 EC nullFlavo [facility] [id number] [facility] 04:07:00 07:09:00 Emergency r Maciej 22 l [facility] 2015-07-04 2015-07-04 EC [facility] [id number] [facility] 17:57:00 20:54:00 Emergency r Maciej 21 l [facility] 2015-06-04 2015-06-04 EC [facility] [id number] [facility] 04:00:00 07:09:00 Emergency r Dexter 20 l [facility] 2015-05-18 2015-05-18 EC nullFlavo [facility] [id number] [facility] 16:55:00 23:04:00 Emergency r Dexter 19 l [facility] 2015-05-09 2015-05-09 EC nullFlavo [facility] [id number] [facility] 17:15:00 20:10:00 Emergency r Dexter 18 l [facility] 2015-05-02 2015-05-03 EC nullFlavo [facility] [id number] [facility] 18:18:00 00:05:00 Emergency r Maciej 17 l [facility] 2015-04-11 2015-04-11 EC nullFlavo [facility] [id number] [facility] 16:25:00 19:47:00 Emergency r Dexter 16 l [facility] 2015-03-30 2015-03-30 EC nullFlavo [facility] [id number] [facility] 19:39:00 22:11:00 Emergency r Maciej 15 l [facility] 2015-03-21 2015-03-24 Inpatient [facility] [id number] [facility] 18:24:00 22:30:00 r Dexter 14 l [facility] 2015-03-11 2015-03-11 EC [facility] [id number] [facility] 19:43:00 22:41:00 Emergency r Dexter 13 l [facility] 2015-03-05 2015-03-[id number] 05:43:00 10:21:00 Emergency r Maciej 12 l [facility] 2015-02-24 2015-02-[facility] [id number] 15:34:00 01:14:00 Observatio r Dexter 11 l n Patient [facility] 2015-02-16 2015-02-18 OBS [facility] [id number] [facility] 20:36:00 21:00:00 Observatio r Dexter 10 l Patient [facility] 2013-12-25 2013-12-25 EC [facility] [id number] [facility] 16:37:00 19:52:00 Emergency r Maciej 09 l [facility] 2013-12-22 2013-12-23 EC [facility] [id number] [facility] 20:43:00 00:29:00 Emergency r Maciej 08 [facility] 2013-12-16 2013-12-17 OBS [facility] [id number] [facility] 17:18:00 22:45:00 Observatio r Dexter 07 [facility] 2013-11-08 2013-11-08 OBS [facility] [id number] [facility] 04:50:00 23:00:00 Observatio r Dexter [id number] [address] Results Test Description Test Time Test Comments [...] STOOL 2017-01-19 Negative [facility] 19:21:00 *NA*(01/19/17 2:21 Dexter PM) URINE AND STOOL 2017-01-19 Negative (01/19/17 Me morial 19:21:00 2:21 PM) [facility] URINE AND STOOL 2017-01-19 Negative (01/19/17 Me morial 19:21:00 2:21 PM) [facility] URINE AND STOOL 2017-01-19 Negative (01/19/17 Me morial 19:21:00 2:21 PM) [facility] URINE AND STOOL 2017-01-19 1 [facility] 19:21:00 [facility] URINE AND STOOL 2017-01-19 1 [facility] 19:21:00 [facility] URINE AND STOOL 2017-01-19 7.0 [facility] 19:21:00 [facility] URINE AND STOOL 2017-01-19 1.008 [facility] 19:21:00 [facility] URINE AND STOOL 2017-01-19 Clear (01/19/17 2:21 [facility] 19:21:00 PM) [facility] CARDIAC ENZYMES 2017-01-19 3.0 [facility] 18:07:00 [facility] CARDIAC ENZYMES 2017-01-19 <0.02 [facility] 18:07:00 [facility] CHEM PANEL 2017-01-19 231 [facility] 18:07:00 [facility] CHEM PANEL 2017-01-19 9 [facility] 18:07:00 [facility] CHEM PANEL 2017-01-19 8.4 [facility] 18:07:00 [facility] CHEM PANEL 2017-01-19 1.0 [facility] 18:07:00 [facility] CHEM PANEL 2017-01-19 3.6 [facility] 18:07:00 [facility] CHEM PANEL 2017-01-19 7 [facility] 18:07:00 [facility] CHEM PANEL 2017-01-19 32 [facility] 18:07:00 [facility] CHEM PANEL 2017-01-19 104 [facility] 18:07:00 [facility] CHEM PANEL 2017-01-19 3.4 [facility] 18:07:00 [facility] CHEM PANEL 2017-01-19 141 [facility] 18:07:00 [facility] CHEM PANEL 2017-01-19 0.79 [facility] 18:07:00 [facility] CHEM PANEL 2017-01-19 3.6 [facility] 18:07:00 [facility] CHEM PANEL 2017-01-19 9.1 [facility] 18:07:00 [facility] CHEM PANEL 2017-01-19 25 [facility] 18:07:00 [facility] CHEM PANEL 2017-01-19 7.2 [facility] 18:07:00 [facility] CHEM PANEL 2017-01-19 1.1 [facility] 18:07:00 [facility] CHEM PANEL 2017-01-19 111 [facility] 18:07:00 [facility] CHEM PANEL 2017-01-19 31 [facility] 18:07:00 [facility] CHEM PANEL 2017-01-19 90 [facility] 18:07:00 [facility] CHEM PANEL 2017-01-19 73 [facility] 18:07:00 [facility] CHEM PANEL 2017-01-19 75 [facility] 18:07:00 Maciej HEMATOLOGY 2017-01-19 18:07:00 Test Item Value Reference Range Interpretation Comme nts PTT (test code = PTT) 31.3 s 22.9-35.8 [facility] [id number] 18:07:008[facility] 2017-01-19 18:07:0042.0[facility] NjeidnwUVBQBDHMOQ3222-07-52 18:07:004.92[facility] [id number] 18:07:0014.4[facility] QmhylglBAEWYTIERA4189-04-00 18:07:0014.2[facility] OtmtpwzGUGIZNEGXV2262-91-42 18:07:40528Devjqqli Dexter AMTTVNAXFN0452-95-58 18:07:0034.2[facility] JuaadblCGWLFYYIEP4828-43-47 18:07:00 Test Item Value Reference Range Interpretation Comments MCH (test code = MCH) 29.2 pg 27.0-31.0 [facility] BqdbxrjSIFNGLKWXI4087-90-07 18:07:0085.5[facility]annHEMATOLOGY 2017-01-19 18:07:007.7[facility] ZobxligGBMRIDZUOB0900-40-02 18:07:00 Test Item Value Reference Range Interpretation Comments PT (test code = PT) 13.7 s 12.0-14.7 [facility] BnbkqioESSFUNSCCH8664-16-54 18:07:001.03[facility]annHEMATOLOGY 2017-01-19 18:07:000.3[facility] WbumzflGUCMAWGUVG0404-26-85 18:07:0068.3[facility] PrhfkpwTYOFKHBWPB7669-01-70 18:07:000.6[facility] OehrynhUQLGBQPCCL3810-32-49 18:07:005.3[facility] QozugjeQKAPLNFJXJ2488-55-86 18:07:004.5[facility] DDIIGPLOKC3928-62-92 18:07:000.6[facility] ZpxfixvPZTBGBAMJU1629-91-98 18:07:001.4 [facility] BklvpuaRXTUIBSESJ8990-78-96 18:07:007.8[facility]annHEMATOLOGY 2017-01-19 18:07:0018.8[facility]annDR[facility] ZZSVAA7351-96-78 00:23:00Positive *ABN*(01/16/17 7:23 PM)[facility] ZKDQCU2813-16-62 00:23:00Negative *NA*(01/16/17 7:23 PM)[facility] VDBVCO6603-95-23 00:23:00Negative *NA*(01/16/17 7:23 PM)[facility] NZNJCD5742-71-38 00:23:00Negative *NA*(01/16/17 7:23 PM)[facility] ZSGGME8396-84-92 00:23:00See Note (01/16/17 7:23 PM)[facility] ZNVHBQ5962-39-83 00:23:00Negative *NA*(01/16/17 7:23 PM)[facility] FCMLOZ4741-32-42 00:23:00Negative *NA*(01/16/17 7:23 PM)[facility] ARFPRJ6636-13-82 00:23:00Negative *NA*(01/16/17 7:23 PM)[facility] DRRPV5503-07-59 00:23:00Negative *NA*(01/16/17 7:23 PM)[facility] CJCYR7946-35-41 00:23:00Negative *NA*(01/16/17 7:23 PM)[facility] CMAHC2288-08-57 00:23:00Negative (01/16/17 7:23 PM)[facility] UJKLK2208-76-59 00:23:00Negative (01/16/17 7:23 PM)[facility] PQOUO2174-01-81 00:23:00Negative (01/16/17 7:23 PM)[facility] ISRKI3174-22-35 00:23:001.0[facility] MHFWT6139-01-84 00:23:00Negative (01/16/17 7:23 PM)[facility] ZSAGU8124-59-28 00:23:00Slight Cloudy (01/16/17 7:23 PM)[facility] CMFFR5338-35-80 00:23:00 Test Item Value Reference Range Interpretation Comments UA Spec Grav (test code = UA Spec 1.007 1 Grav) [facility] SQFGZ5807-91-69 00:23:00 Test Item Value Reference Range Interpretation Comments UA pH (test code = UA pH) 6.0 1 5.0-8.0 [facility] SYSQI9176-46-80 00:23:00Negative (01/16/17 7:23 PM) [facility] GLMFD0447-64-32 00:23:00Yellow *NA*(01/16/17 7:23 PM) [facility] HcwzaqyQGZBUELPBA3387-34-95 23:57:001.8[facility]annHEMATOLOGY 2017-01-16 23:57:000.2[facility] RdrnuubUZZWBDSKFP2384-05-99 23:57:0060.6[facility] RbeyisvFFEISPMTNH5636-54-94 23:57:008.3[facility] OmjppddNUNITXTCRT8697-63-22 23:57:003.5[facility] RgbyhmiLHSISWWVMC1015-57-79 23:57:0026.8[facility] CARDIAC TGJJCTO5435-53-95 23:57:00<0.02[facility]annCARDIAC ENZYMES 2017-01-16 23:57:002.0[facility]annCARDIAC OTGXKSX1491-04-26 23:57:57632 [facility]AC GIGUFYY4567-10-60 23:57:001.0[facility] HermannCHEM PANEL 2017-01-16 23:57:0073[facility] HermannCHEM OKUNO5414-79-82 23:57:0029[facility]annCHEM JUJTU8608-67-67 23:57:32817Usiqdgja HermannCHEM ITZWJ9281-02-04 23:57:15333Bgxhmxnj HermannCHEM QQSTZ6370-31-66 23:57:0015[facility]annCHEM QSVEH9103-84-33 23:57:0011.0[facility] HermannCHEM FATIZ0623-87-44 23:57:0016 [facility]annCHEM OBCUP9309-80-26 23:57:009.4[facility]annCHEM PANEL 2017-01-16 23:57:000.94[facility]annCHEM WZFBL9105-41-29 23:57:58863Wejijyjo HermannCHEM VVUNG9331-71-77 23:57:004.0[facility]annCHEM UVGWA0399-45-90 23:57:003.6[facility]annCHEM LFZJM6063-84-41 23:57:0024[facility]annCHEM QNSCC9913-98-50 23:57:000.6[facility]annCHEM LRARR7837-94-34 23:57:08064 [facility]annCHE[facility] WFYIU1079-56-99 23:57:0029[facility]annCHEM PANEL 2017-01-16 23:57:000.9[facility]annCHEM CQGGT9440-38-25 23:57:003.9[facility]annCHEM SDEAR4696-02-98 23:57:007.5[facility] UpjqoxcKMXCEJQFFH2839-39-14 23:57:0014.6[facility] BoodcjgNIPWLYOUHI5926-91-28 23:57:0042.7[facility] VQCFULALHG8443-17-24 23:57:0034.2[facility] XgwbbiqMWETRNCVWG9248-76-79 23:57:00 85.3[facility] ZjbjgdiFIOWADAYLJ7163-91-16 23:57:00 Test Item Value Reference Range Interpretation Comments MCH (test code = MCH) 29.2 pg 27.0-31.0 [facility] OkzxbvkFFXKBLMJOQ8203-45-10 23:57:0014.3[facility]annHEMATOLOGY 2017-01-16 23:57:06703Snjzztwf JjscanvEQYYBNJDYQ2548-79-11 23:57:008.0[facility] BwgcjgeMDYXEEPDOV4374-55-24 23:57:006.6[facility] QqcplieOAUDFPCLTP7742-51-63 23:57:005.00[facility] SzsohllVUKSPNYJZV9909-57-39 23:57:000.8[facility] QSQKSPZMJY8496-64-81 23:57:004.0[facility] PeomaihIFHYYCGWOM8564-41-32 23:57:000.5 [facility] ZtsawoeWJDGQXBQIK0369-09-92 23:57:000.1[facility] STOOL 2016-11-29 02:18:00Negative *NA*(11/28/16 9:18 PM)[facility] STOOL 2016-11-29 02:18:00Negative (11/28/16 9:18 PM)[facility] STOOL 2016-11-29 02:18:001.0[facility] YIETL3982-08-79 02:18:00Negative (11/28/16 9:18 PM)[facility] BFTVG4531-42-59 02:18:00Negative *NA*(11/28/16 9:18 PM)[facility] EGNNZ0660-27-58 02:18:00Moderate *ABN*(11/28/16 9:18 PM)[facility] VTWHG8661-83-54 02:18:00Yellow *NA*(11/28/16 9:18 PM)[facility] YAZIG4588-71-32 02:18:00 Test Item Value Reference Range Interpretation Comments UA pH (test code = UA pH) 6.0 1 5.0-8.0 [facility] RJUCN5933-42-42 02:18:00Negative (11/28/16 9:18 PM) [facility] GKMMX9587-85-13 02:18:00Negative (11/28/16 9:18 PM) [facility] VEUZX5267-48-24 02:18:00<=1.005 *NA*(11/28/16 9:18 PM)[facility] NAOAY8755-38-89 02:18:00Clear (11/28/16 9:18 PM) [facility]annCARDIAC PIUWXWQ8364-51-55 01:37:00<0.02[facility] CARDIAC XZXODYQ1606-72-67 01:37:001.3[facility]annCARDIAC JPIHVBA6887-03-80 01:37:0089[facility]annCARDIAC LAXJRNM9084-60-14 01:37:001.5[facility] CHEM XPWQB7234-51-22 01:37:003.9[facility] HermannCHEM JFFAQ0344-11-66 01:37:0050 [facility]annCHE[facility] GQDNK1376-78-42 01:37:000.9[facility] HermannCHEM PANEL 2016-11-29 01:37:0024[facility]annCHEM VHVAN7199-00-78 01:37:003.7[facility]annCHEM ILDAL9947-38-49 01:37:0089[facility]annCHEM IULFU9583-75-90 01:37:53666Avfvmclq HermannCHEM BIPTJ6449-51-15 01:37:0010[facility]annCHEM WMEJV8921-42-63 01:37:001.28[facility]annCHEM OCFYO5033-52-39 01:37:0030 [facility]annCHEM WCWIV6955-66-29 01:37:44372Jocprjow HermannCHEM PANEL 2016-11-29 01:37:009.5[facility] HermannCHEM ITXEO8386-00-20 01:37:009.5[facility] HermannCHEM JIJCR1725-53-78 01:37:008[facility]annCHEM DIFQI1557-15-34 01:37:000.7[facility] HermannCHEM CMGGN7813-09-49 01:37:98042Bvoirxpj HermannCHEM GPVSQ0708-34-15 01:37:003.5[facility]annCHEM TWPFJ5891-79-04 01:37:007.6 [facility]annCHEM NRNLY6582-42-56 01:37:0014[facility]annHEMATOLOGY 2016-11-29 01:10:0033.4[facility] WhnhnkwLVTPWTZXHR1908-94-11 01:10:90115Nwgrlqwn QzlenhyCFNIQAONZV9267-98-38 01:10:0014.7[facility] SjydjfpFZDRQDFQMZ3310-66-09 01:10:008.1[facility] ElmjdobFHGPNQPMAB5416-71-42 01:10:005.34[facility] ZYTVTUJLNG2738-62-76 01:10:0015.5[facility] WlqcqweJZUATIVHAL6904-76-27 01:10:00 87.0[facility] BkspugsFMVXHWTOUH7203-33-60 01:10:0046.4[facility]annHEMATOLOGY 2016-11-29 01:10:00 Test Item Value Reference Range Interpretation Comments MCH (test code = MCH) 29.1 pg 27.0-31.0 [facility] BzsbmfqMHJUPAMDFW1150-76-54 01:10:008.0[facility]annHEMATOLOGY 2016-11-29 01:10:000.1[facility] RovlohjNLDQLCBZVN5172-28-85 01:10:002.0[facility] MvyfvbgSHYISXRSPN2630-50-29 01:10:005.1[facility] FfqvszoWMOZSVINBV1922-97-26 01:10:000.2[facility] RxdfoffQLTXGZGECL8014-64-55 01:10:000.8[facility] QZVMSWBOZE0533-07-88 01:10:0063.2[facility] MxvgeeeUSJQCVAMTS1597-10-53 01:10:00 24.3[facility] CzrxijjKDHUBSRGSN2434-13-01 01:10:002.1[facility]annHEMATOLOGY 2016-11-29 01:10:009.6[facility] BgmlmsxKYHHRGGIWF6103-91-68 01:10:000.8[facility] HermannVIRAL - SBPBECUN3127-46-28 01:10:00Negative (11/28/16 8:10 PM)[facility]annVIRAL - QOCVJASJ5187-34-26 01:10:00Negative (11/28/16 8:10 PM)[facility]annCARDIAC NSKUUZZ4927-82-11 01:15:001.3[facility]annCARDIAC ENZYMES 2016-11-07 01:15:00<0.02[facility]annCARDIAC EQSBRPE3134-61-32 01:15:001.9 [facility]annCARDIAC VPRXOTJ9062-24-17 01:15:61753Frfhjuel HermannCHEM PANEL 2016-11-07 01:15:0077[facility] HermannCHEM HRQXD2173-49-71 01:15:0017[facility]annCHEM GBUSI4320-41-94 01:15:006.8[facility]annCHEM BYLTM5888-29-75 01:15:008.5[facility]annCHEM NPMDS9613-07-13 01:15:000.8[facility] HermannCHEM VMELY1055-98-26 01:15:75549Qklqafti HermannCHEM GQXIE1957-91-07 01:15:0031 [facility]annCHEM MSMGJ4272-93-75 01:15:003.1[facility] HermannCHEM PANEL 2016-11-07 01:15:000.90[facility] HermannCHEM VORKE6545-97-86 01:15:45709Ctiojhtc HermannCHEM YAXQI5468-52-64 01:15:0012[facility]annCHEM FPJQO3826-77-56 01:15:0096[facility]annCHEM PVCTK6257-26-66 01:15:003.3[facility]annCHEM SODXN4822-96-21 01:15:0076[facility]annCHEM TUTMQ6026-03-83 01:15:0020 [facility]annCHEM LMXDS8253-60-64 01:15:003.5[facility] HermannCHEM PANEL 2016-11-07 01:15:000.9[facility] HermannCHEM JWWJI8999-17-47 01:15:0010.1[facility] HermannCHEM BMXLR6276-01-17 01:15:0013[facility] FwapfazXAPZZHZDTD0000-65-45 01:15:002.8[facility] LrvjlgzYHCDEPTZDG9853-02-25 01:15:000.2[facility] OZHGIVHJFE4546-40-91 01:15:000.1[facility] YnguyvwVZTVGVESSH5535-46-30 01:15:000.7 [facility] QsyeinyJMOSXYOTBE5313-03-26 01:15:000.8[facility]annHEMATOLOGY 2016-11-07 01:15:004.5[facility] LkaywhvXKFOMUZXXU7772-50-77 01:15:002.2[facility] MgytzjxCBXIDYSTKG4995-32-82 01:15:0058.5[facility] WlxtgrzXMIVVNZDCN9519-24-06 01:15:0028.8[facility] MwwxuhqUSDOBRILNZ4233-00-62 01:15:009.1[facility] KXONQWJWOM6602-60-91 01:15:99401Gznarjfr BmyyhfkBJZBJOFHFZ3339-41-20 01:15:00 14.3[facility] SrzyyyrGHVWHLLDBI2288-62-37 01:15:008.1[facility]annHEMATOLOGY 2016-11-07 01:15:007.7[facility] MjeahikPNGHKQCDXE7528-35-82 01:15:0013.1[facility] MvesuutHLDKXDOOOV1980-12-46 01:15:004.48[facility] FrjcrxaXJFUQGRMRI8988-52-87 01:15:00 Test Item Value Reference Range Interpretation Comments MCH (test code = MCH) 29.3 pg 27.0-31.0 [facility] EpwrifaOAQVOXEYNT4409-76-86 01:15:0039.1[facility]annHEMATOLOGY 2016-11-07 01:15:0087.3[facility] MmgwuexNGJOLQTJBZ8433-08-62 01:15:0033.6[facility]annDRUG LDCSTP4131-81-37 11:24:00Negative *NA*(10/11/16 5:24 AM)[facility]annDR[facility] TQTFYG7298-40-88 11:24:00Negative *NA*(10/11/16 5:24 AM)[facility]annDR[facility] MIHRKS5508-77-72 11:24:00Negative *NA*(10/11/16 5:24 AM)[facility]annDR[facility] ORGTRH3249-35-35 11:24:00Negative *NA*(10/11/16 5:24 AM)[facility]annDR[facility] GDKBZI1957-77-54 11:24:00Positive *ABN*(10/11/16 5:24 AM)[facility]annDR[facility] NBFRCW7400-74-16 11:24:00See Note (10/11/16 5:24 AM)[facility] INZVIP9595-59-61 11:24:00Negative *NA*(10/11/16 5:24 AM)[facility]annDR[facility] HFWWQO0791-86-54 11:24:00Negative *NA*(10/11/16 5:24 AM)[facility]annCARDIAC BZPERRD4234-49-84 09:58:00<0.02[facility] PxjldvoVAPFDVBJBO1075-56-45 09:58:00 0.4[facility] VxadapiNIVDVKKJXA0776-92-32 09:58:000.1[facility]annHEMATOLOGY 2016-10-11 09:58:006.3[facility] KnvccafECQXYNRMVG3014-92-05 09:58:001.0[facility] EsxohcbUJHIAPVTOS9495-43-88 09:58:002.7[facility] ZxguqmjGPUCTWEEWP9431-71-63 09:58:002.1[facility] ShkfhecILMFUGFFHL0129-41-89 09:58:000.6[facility] LVNZTALNCF6683-95-17 09:58:0036.3[facility] WnaoceeLRMSFVKEFX6065-43-90 09:58:00 46.0[facility] IokvrizPHMECDRJUM0312-09-40 09:58:0010.4[facility]annHEMATOLOGY 2016-10-11 09:58:008.7[facility] GkoesfhGUBOLUYEOG7125-27-84 09:58:26932Ucismgid OenkfglGOEGUYXLQI6272-02-98 09:58:00 Test Item Value Reference Range Interpretation Comments MCH (test code = MCH) 29.3 pg 27.0-31.0 [facility] KhlwfylWAOIREKRDT0700-18-88 09:58:0087.2[facility]annHEMATOLOGY 2016-10-11 09:58:0014.4[facility] KimmgphPXUKTHCHXJ3769-85-32 09:58:0033.6[facility] UvpoyvmYHGZBMRJNY4896-94-80 09:58:0013.1[facility] EvhylsvQFHGJOQFOH1486-66-87 09:58:004.45[facility] HofkhkzVWRJUQEPQL8367-32-04 09:58:0038.8[facility] BPKTVLAOVZ9784-69-06 09:58:005.8[facility] BiqimicNRQZZZ1080-72-68 09:58:002.84 [facility] EafojrfPJXWUZ5659-53-12 09:58:0014[facility] KdyzcxlLSLCCJ7508-70-80 09:58:0087[facility] ZpejwafIXPTKA1498-86-00 09:58:0071[facility] HermannLIPIDS 2016-10-11 09:58:76720Ntlnaywi OagjhgnEIFNTF8367-37-46 09:58:0055[facility]annCARDIAC OFFFJHR5296-78-25 00:00:00<0.02[facility]annCARDIAC ENZYMES 2016-10-10 19:10:33<0.02[facility]annCHEM UCGYK6061-23-04 19:10:3392 [facility]annCHEM SIMJW4364-88-68 19:10:338[facility]annCHEM PANEL 2016-10-10 19:10:330.78[facility]annCHEM MXIMD3732-86-65 19:10:08967Hsfjzgkb HermannCHEM QFBRY3304-45-51 19:10:333.2[facility] HermannCHEM JVZWK8206-19-45 19:10:339.3[facility] HermannCHEM KUZUN0367-82-89 19:10:3331[facility]annCHEM KSUKF4193-48-12 19:10:60251Ysrkznnu HermannCHEM LMLND3126-34-31 19:10:62351 [facility]annCHEM PAGVJ0429-75-51 19:10:337.2[facility]annHEMATOLOGY 2016-10-10 19:10:3333.8[facility] LvvbzxxMQDGPSEDDE2365-65-38 19:10:3314.2[facility] OzzlrmmJVWZETJCWL5652-40-02 19:10:33 Test Item Value Reference Range Interpretation Comments MCH (test code = MCH) 29.4 pg 27.0-31.0 [facility] NhacxupISVSJMBWQA2351-35-19 19:10:3387.0[facility]annHEMATOLOGY 2016-10-10 19:10:3313.5[facility] MpdznmwRVJUOHYVBM9537-69-52 19:10:3339.8[facility] ConetrcDODWWQQQQK9795-50-30 19:10:39752Yhhompvw VgjekpqCQPWYEBPKX0838-82-64 19:10:338.7[facility] XmegwknHMXXQSAOLA2785-91-33 19:10:336.6[facility] TTZXGZTADF7958-99-79 19:10:334.58[facility] XzdznccTSFNPVGMXQ3914-28-68 19:10:33 1.8[facility] MvcorabWMNVJJAADR4581-55-32 19:10:330.6[facility]annHEMATOLOGY 2016-10-10 19:10:330.3[facility] LlavmcpBWIODEFSAF7165-17-26 19:10:330.6[facility] AampckzMMVJXUYRZR9360-40-07 19:10:333.9[facility] JgpcmkxRFJNVETFXN1151-54-77 19:10:339.0[facility] BgribblKFQBGQPGCK0205-24-22 19:10:334.1[facility] OFKQRTVDGY9859-97-06 19:10:3359.5[facility] IqjqrtfYQONWLRULW4672-52-05 19:10:33 26.8[facility] HermannCARDIAC CDLEHWO9485-54-23 04:07:00<0.02[facility] JNMEDFHZJPLM5478-33-35 04:07:0013.5[facility] HeaaulpFMQFFQWTHVHF0263-93-72 04:07:0079[facility] SyuufwqWBIOQAMZKKZT0878-66-42 04:07:000.89[facility] OIYUDXVBOXGE2263-38-17 04:07:009[facility] TgybgptAFWWAJDHQDZX7085-77-88 04:07:00 72[facility] ZxklhgfMPSTSENEJTDK3791-66-88 04:07:57546Krarbeyt HermannELECTROLYTES 2016-04-14 04:07:0025[facility] WtdbwmoMARKLJZWIGEE4694-28-90 04:07:008.9[facility] YolyhgdDVBOACNZRMNN9723-22-91 04:07:35098Vnqfnfwd BlnixepMKQYHFHDMOLS0386-91-90 04:07:003.5[facility] QdhnkhrIBUZDCDYDO6135-09-46 04:07:95754Mzgtelma Maciej IZWOAWBHDH4429-72-70 04:07:008.5[facility] VnjzndePODJQBGKOZ7076-36-19 04:07:00 33.5[facility] SxftwqcUTNASDEOPJ7037-71-46 04:07:00 Test Item Value Reference Range Interpretation Comments MCH (test code = MCH) 28.7 pg 27.0-31.0 [facility] ZqrwcveJZMHWEHZPN7056-33-25 04:07:0015.0[facility] HermannHEMATOLOGY 2016-04-14 04:07:0038.3[facility] YhyjsaiCYLUDGQWOG1892-85-55 04:07:0085.6[facility] ZohomykCEJAZAQHAA9279-95-90 04:07:0012.9[facility] GaibawpDLKTHHYSBN4765-03-83 04:07:004.48[facility] DiykzmyREGBDRGWPZ2159-61-50 04:07:005.6[facility] MYCCLRUYZP6920-66-70 04:07:000.1[facility] PflovgnPFBRRXSCZK4309-49-30 04:07:002.2 [facility] DyhhsqeFJDKOFOXDX7938-75-46 04:07:000.3[facility] HermannHEMATOLOGY 2016-04-14 04:07:000.5[facility] BgzcchvJPENVRYURX6343-60-79 04:07:006.1[facility] DecrwbjZBZEUDNCZR8261-45-64 04:07:001.1[facility] EjqbfahCAYLIFERVZ1298-22-68 04:07:002.5[facility] BowfespGNXFGZWYAG0119-27-38 04:07:0038.8[facility] DVUYXHAHKP6903-36-29 04:07:009.2[facility] SzxidaxPAQSROWMNS2269-89-00 04:07:00 44.8[facility] ExbdiblKXOPOTWVGH2162-45-65 04:07:008[facility] HermannTOXICOLOGY 2016-04-14 04:07:000.008[facility] HermannCARDIAC MSOTHTY9708-23-39 11:47:00 <0.02[facility] ApodwweFDNOCT1265-48-18 11:47:003.39[facility] HermannLIPIDS 2016-03-12 11:47:0018[facility] DhojuekJTJFRB3441-00-82 11:47:0073[facility] WQJCCJ7765-40-06 11:47:0090[facility] NbnapgoXKMOZK7892-48-42 11:47:75871Etamqbjp TkwwlocLXHMYV8962-65-77 11:47:0038[facility] HermannSPECIAL BPZTRQDDW5675-02-92 11:47:005.9[facility] HermannCARDIAC SJVNGWD7699-78-07 02:33:0081[facility] CARDIAC KGRFABE8540-71-49 02:33:000.02[facility] HermannCARDIAC ZKRVOEM2667-92-23 02:33:001.6[facility] HermannCARDIAC UBAGEDI0714-76-68 02:33:001.3[facility] BKPYMDHNJB2548-26-68 21:03:00 Test Item Value Reference Range Interpretation Comments PROTIME (test code = PROTIME) 14.0 s 12.0-14.7 [facility] UnxytulLUNPKNRXII4473-68-49 21:03:001.05[facility] HermannHEMATOLOGY 2016-03-11 21:03:00 Test Item Value Reference Range Interpretation Comments aPTT (test code = aPTT) 38.7 s 22.9-35.8 [facility] NeufynkWZZOOECELJ4709-01-62 21:03:000.49[facility] HermannCARDIAC ENZYMES 2016-03-11 20:14:001.6[facility] HermannCARDIAC NDNVZDA8322-20-99 20:14:001.3 [facility]annCARDIAC JMGCGSL0082-53-92 20:14:00<0.02[facility] CARDIAC TSWDPIK5441-96-20 20:14:0083[facility]annCARDIAC JXCXKHI1065-02-94 20:14:0050[facility] HermannCHEM QPOYJ2469-39-72 20:14:58123Ngdgenty HermannCHEM SFKZR6705-30-38 20:14:83697Nbnajpid HermannCHEM NLCED6918-00-75 20:14:002.8 [facility] HermannCHEM VEJCB2495-63-31 20:14:001.2[facility] HermannCHEM PANEL 2016-03-11 20:14:0015[facility] HermannCHEM KEWYL8166-74-89 20:14:0010.4[facility] HermannCHEM FKWNI1640-46-78 20:14:0014[facility] HermannCHEM AHRYP0373-09-42 20:14:006.1[facility] HermannCHEM LDSBF7839-51-28 20:14:000.5[facility] HermannCHEM PWZFK9109-25-38 20:14:007.7[facility]annCHEM WRGOO9450-09-51 20:14:0026 [facility]CHE[facility] BKIZA5258-09-83 20:14:77090Vwwkyrwo HermannCHEM PANEL 2016-03-11 20:14:003.4[facility]annCHEM FGDCG1883-52-41 20:14:36327Njpsmnjc HermannCHEM DZJQS7159-34-40 20:14:000.61[facility]annCHEM XUELQ5377-72-29 20:14:009[facility]annCHEM OFILI0904-60-03 20:14:0076[facility]annCHEM AAFZH6664-30-03 20:14:0088[facility]annCHEM ZWPFY2324-22-11 20:14:003.3 [facility]annCHEM WVYIU0107-69-22 20:14:0015[facility]annHEMATOLOGY 2016-03-11 20:14:001.8[facility] DvqonvlOJTFPTZTSB0537-57-81 20:14:000.5[facility] GqkubnlNLSTKFYFZY0873-22-87 20:14:001.0[facility] TkydkujRSTUVOYYDO5589-57-25 20:14:004.1[facility] YepcsfiDEGJYMTBBU9091-95-99 20:14:000.2[facility] NUHZUHBEDU5302-26-28 20:14:000.1[facility] ImgwgsbCIPZBZDDUC0868-18-19 20:14:00 61.4[facility] ZqfmmjlCJUNUNKUTR0959-07-81 20:14:003.5[facility]annHEMATOLOGY 2016-03-11 20:14:0026.6[facility] LoutohqXEEQXJAOYY3926-57-83 20:14:007.5[facility] SiwoxbbMHQAEQQAVV0343-34-83 20:14:006.7[facility] GuikkweCSXAURDQSH5512-52-54 20:14:0012.2[facility] XjkqigxMFHRAGNTKN7953-11-98 20:14:004.26[facility] AHKSHTPZNF1045-12-90 20:14:00 Test Item Value Reference Range Interpretation Comments MCH (test code = MCH) 28.7 pg 27.0-31.0 [facility] GlxnmpxJMWRKMDCKK2185-92-47 20:14:0086.0[facility]annHEMATOLOGY 2016-03-11 20:14:0014.9[facility] DjtdhdcXEBGIDMIQD7095-33-61 20:14:0033.3[facility] RhtdssxXEFBMSJIYB6507-23-77 20:14:0036.6[facility] AwfeuqyAGYKDCRLNJ9441-25-99 20:14:008.7[facility] DbofjagIYKVKCZTEG9290-64-54 20:14:20518Rrnkbiac HermannURINE AND EZRJW4759-94-06 20:14:00Negative (03/11/16 3:14 PM)[facility] FINOA0127-35-09 20:14:00Negative (03/11/16 3:14 PM)[facility] LHFUV1406-06-41 20:14:00Negative (03/11/16 3:14 PM)[facility] YRWBA1128-17-78 20:14:000.2[facility] NIHHI6888-78-47 20:14:00 Clear (03/11/16 3:14 PM)[facility] PCHDZ5485-97-17 20:14:00 Negative (03/11/16 3:14 PM)[facility] SOPSK9906-43-97 20:14:00 <=1.005 *NA*(03/11/16 3:14 PM)[facility] VIYXY6605-96-56 20:14:00 Test Item Value Reference Range Interpretation Comments UA pH (test code = UA pH) 6.5 1 5.0-8.0 [facility] ASQQD7859-51-00 20:14:00Negative *NA*(03/11/16 3:14 PM) [facility] LBRQV5457-25-94 20:14:00Negative *NA*(03/11/16 3:14 PM) [facility] KPVWR2922-58-79 20:14:00Negative (03/11/16 3:14 PM) [facility] GRDUL3883-13-40 20:14:00Yellow *NA*(03/11/16 3:14 PM) [facility] DIODI0463-05-59 00:22:00Yellow *NA*(02/29/16 7:22 PM) [facility] AYGIM2000-02-51 00:22:00 Test Item Value Reference Range Interpretation Comments UA pH (test code = UA pH) 6.0 1 5.0-8.0 [facility] AUXDY5467-02-00 00:22:00Clear (02/29/16 7:22 PM)[facility] MUWBF1310-90-83 00:22:00 Test Item Value Reference Range Interpretation Comments UA Spec Grav (test code = UA Spec 1.015 1 Grav) [facility] RMKAY5491-58-14 00:22:00Trace *ABN*(02/29/16 7:22 PM) [facility] DXVNV4431-26-02 00:22:00None Seen (02/29/16 7:22 PM) [facility] RCMSH3561-49-32 00:22:00Negative (02/29/16 7:22 PM) [facility] QERBQ2061-91-46 00:22:001.0[facility] SXDQW8587-54-74 00:22:00Negative (02/29/16 7:22 PM)[facility] STOOL 2016-03-01 00:22:00Negative (02/29/16 7:22 PM)[facility] STOOL 2016-03-01 00:22:00Negative *NA*(02/29/16 7:22 PM)[facility] STOOL 2016-03-01 00:22:00Negative *NA*(02/29/16 7:22 PM)[facility] STOOL 2016-03-01 00:22:00Negative (02/29/16 7:22 PM)[facility]annCARDIAC ENZYMES 2016-02-29 23:14:00<0.02[facility]annCARDIAC AWGZSEY6760-28-48 23:14:001.1 [facility]annCARD[facility]AC AZMLJBQ0824-11-98 23:14:78408Stsdxeah HermannCARDIAC DEHKYFK1781-26-92 23:14:007[facility]annCARDIAC MGXNYEU3625-43-61 23:14:000.8 [facility]annCHEM BSRYT8407-84-90 23:14:0080[facility]annCHEM PANEL 2016-02-29 23:14:0013[facility]annCHEM DMXGE7215-76-49 23:14:001.0[facility]annCHEM OKXPH8342-87-19 23:14:003.6[facility]annCHEM MJWTH9818-97-16 23:14:009[facility]annCHEM PZRAR6533-13-31 23:14:007.1[facility]annCHEM KWMRV8237-10-23 23:14:0010.0[facility]annCHEM EGYVH9984-40-05 23:14:55725 [facility]annCHE[facility] IXICF1267-47-56 23:14:003.0[facility]annCHEM PANEL 2016-02-29 23:14:000.88[facility]annCHEM KHZYZ0272-98-27 23:14:0030[facility]annCHEM UONQG2046-24-16 23:14:000.6[facility]annCHEM JQKMZ8293-79-14 23:14:008.7[facility]annCHEM DHYFT8114-29-99 23:14:29977Xejhbnhx HermannCHEM CASKN8534-16-72 23:14:0015[facility]annCHEM QCPIG4478-43-37 23:14:0088 [facility]annCHEM ZCXVU8118-68-09 23:14:003.5[facility]annCHEM PANEL 2016-02-29 23:14:008[facility]annCHEM KYCKZ8496-80-27 23:14:0089[facility] UwuraauVUGEFOYDEV9334-54-83 23:14:00 Test Item Value Reference Range Interpretation Comments PROTIME (test code = PROTIME) 13.2 s 12.0-14.7 [facility] RrblogtFKIJKSLTFI8063-58-57 23:14:000.97[facility]annHEMATOLOGY 2016-02-29 23:14:0015.3[facility] FfxnzuyQIUAXCQTUM7120-81-91 23:14:0032.9[facility] BmtjcsnPISWLPFGWL7125-17-50 23:14:0043.8[facility] HftifjmSKUUKLAVSQ7648-23-98 23:14:00 Test Item Value Reference Range Interpretation Comments MCH (test code = MCH) 28.1 pg 27.0-31.0 [facility] NetwbzpEVZRHXRTHJ8956-32-88 23:14:0085.5[facility]annHEMATOLOGY 2016-02-29 23:14:005.3[facility] ZtftmqkMQMDMCPUDT0792-65-64 23:14:0014.4[facility] FxhyewlVLPAMEPCFL1484-94-11 23:14:005.12[facility] BnfofqcVXQCXPVFHB9540-76-49 23:14:50822Qnakqqaq LbkwpzgXKXESFNXMU4825-85-23 23:14:008.1[facility] PZGIPEOVDC8611-46-20 23:14:0057.2[facility] OzcfnqpPVOGTLTZHZ8879-82-64 23:14:00 11.7[facility] UdfiddmKEMXHDVTSI8073-70-57 23:14:0024.1[facility]annHEMATOLOGY 2016-02-29 23:14:000.1[facility] NvepsdrQUKNVDEMXW8052-67-61 23:14:000.6[facility] DynutpcFRBJVGEWLR2591-33-65 23:14:001.3[facility] QuayhbyMXMMZWLFMG8658-84-20 23:14:000.3[facility] PummbylIWESILAMLR6423-01-63 23:14:003.0[facility] XJQOFKVXRK3105-97-26 23:14:005.9[facility] OingiyuUBQIQSWLVD3442-25-76 23:14:001.1 [facility]annCARDIAC OJLASWS9012-96-61 17:04:000.7[facility]annCARDIAC AHSBUPT4249-34-56 17:04:000.7[facility]annCARDIAC DNZBDGD3411-32-65 17:04:00 <0.02[facility]annCARDIAC NISPLOW9217-64-96 17:04:0097[facility] NCLSYEPCXSDQ1034-07-26 17:04:0018.3[facility] JhkgdknBHRRPDAWLCSL7251-93-00 17:04:0078[facility] EatbhiuRMVIQNXQJYRZ8148-21-47 17:04:31911Dymqpmak Dexter YWMVNYFCKVWB0727-51-32 17:04:0010[facility] VdqfvboDSGCHSNKDVCG5069-94-63 17:04:00 0.90[facility] QrckqglSRIPDWOCXPPC4234-09-71 17:04:0020[facility] GDPPJDOZUJDW0223-31-79 17:04:009.4[facility] WynbeenBGGOAOFAINLJ6889-65-14 17:04:004.3[facility] DsipuvfWIXCRNLDTPFV4339-68-81 17:04:58433Ppfbcsfi Maciej SQMHGTYZODKU4001-84-19 17:04:38452Lzekhipn WgcmtuqEZCNFIGWPF2716-20-24 17:04:00 9.6[facility] NwwtzedQPYTXOGNIX2357-51-52 17:04:0041.4[facility]annHEMATOLOGY 2015-09-04 17:04:0013.1[facility] EpxtfmfWEOGMCSPMX2497-91-47 17:04:004.74[facility] RnbuddgPEYFCQONYL7519-61-28 17:04:0087.3[facility] OmtsshhNFCNQCWKFJ4082-21-44 17:04:0031.5[facility] IcicwxyVCBYXYYKLJ2090-20-87 17:04:00 Test Item Value Reference Range Interpretation Comments MCH (test code = MCH) 27.5 pg 27.0-31.0 [facility] WpuesejZHRFXPGTOW9694-32-09 17:04:008.7[facility]annHEMATOLOGY 2015-09-04 17:04:75937Ineircgf NjestizTFMWWHXQOV2951-40-00 17:04:0014.4[facility] AycqwzaAUEJKZTIGI0041-50-44 17:04:000.1[facility] DmatpvpIRKYAHLPTH0556-99-17 17:04:000.5[facility] ZqlktneMAKUHYJTMM3535-16-30 17:04:00Normal (09/04/15 11:04 AM) [facility] VmxoczmBDUQMHRPCM5050-72-45 17:04:00Normal (09/04/15 11:04 AM)[facility] YhzifwyWTFJQGMFSQ7466-78-78 17:04:0093.3[facility] EsdnyxsPLZSJDGBXO9643-17-52 17:04:000.2[facility] XvahitoFYOSPJDQYK5975-34-05 17:04:005.4[facility] AFVBGQWGWZ4865-26-55 17:04:001.1[facility] MnoqofhUUHWKMYDHM3502-89-17 17:04:009.0 [facility] FqtjfmbSXOKJA9205-52-10 17:04:0014[facility] FyejkfdBCEZTS5364-85-75 17:04:24292Nmbrfrzp FzsenlvZUXHCT4074-00-87 17:04:0054[facility] HermannLIPIDS 2015-09-04 17:04:0071[facility] YnovnxnQRZOTB5154-18-96 17:04:23470Znvbpvwx IdthkntFOMHSO5491-60-08 17:04:003.67[facility]annCARDIAC ZCSMKCZ3967-63-12 10:50:000.6[facility]annCARDIAC BGBUWQK6267-82-21 10:50:000.6[facility] CARDIAC SRYQJEJ2744-81-36 10:50:00<0.02[facility]annCARDIAC ENZYMES 2015-09-04 10:50:19597Imejjbrr HermannCARDIAC BDCAJMS1239-60-21 04:33:34918 [facility]annCARD[facility]AC GQSTIPT7430-71-37 04:33:00<0.02[facility] CARDIAC ZPHXWMD1852-97-73 04:33:000.8[facility]annCARDIAC CJHOSRZ1934-70-67 04:33:000.7[facility]annCHEM NTBUJ5260-70-91 04:33:0087[facility]annCHEM JFMNK3894-14-97 04:33:008[facility]annCHEM MCLOI9643-48-78 04:33:000.82 [facility]annCHEM VRJUC4401-53-68 04:33:20202Jijiiiwx HermannCHEM PANEL 2015-09-04 04:33:77593Qduzeazk HermannCHEM PHYAT4091-11-98 04:33:003.9[facility]annCHEM VTCEY7720-04-70 04:33:07424Zlbvbsvy HermannCHEM SSWSI6445-31-54 04:33:0013.9[facility]annCHEM BPRRL6513-40-03 04:33:009.2[facility]annCHEM FBMLF4561-44-73 04:33:0025[facility] WuncsxfMYBNGXLPYD2245-27-91 04:33:007.4 [facility] LqudmsqAYPWJTTDVT1360-65-28 04:33:0012.4[facility]annHEMATOLOGY 2015-09-04 04:33:004.57[facility] IdisgibBNNCIEFYTP3168-60-70 04:33:0039.4[facility] QtzxnxrBYRNPAEXED5210-18-19 04:33:0086.1[facility] SrikzrqJVCJUAJZGA3697-20-29 04:33:0014.7[facility] MzyyllcQCSFSQUHDI8528-77-75 04:33:0031.6[facility] SOKGQRDTFZ6869-62-33 04:33:00 Test Item Value Reference Range Interpretation Comments MCH (test code = MCH) 27.2 pg 27.0-31.0 [facility] MdosggvCFUOWTPXUA6704-46-28 04:33:008.3[facility] HermannHEMATOLOGY 2015-09-04 04:33:87232Zlhkkioc YdwivcpKIMTVSKAPF6693-27-65 04:33:005.5[facility] CyfnolgSNARZFLWSS5994-40-02 04:33:006.5[facility] ChzcvilYLEYBYBFUC5701-41-00 04:33:0031.7[facility] YzkfknwOHSKXHRVLY3613-50-78 04:33:0055.0[facility] TRGYUTEXXX8305-27-93 04:33:000.5[facility] EnydxypLIKJHHYMIL9408-73-20 04:33:002.3 [facility] MrixciuGGHEXUJFGU0091-89-50 04:33:004.0[facility]annHEMATOLOGY 2015-09-04 04:33:001.3[facility] MbfurdhUXHZJSMSEV0237-04-51 04:33:000.1[facility] UdjrdquJORXIBVOOL4408-41-50 04:33:000.4[facility]annCARDIAC OGTCRUY6447-11-63 10:25:00<0.02[facility]annCARDIAC NKMBXQK9378-89-83 10:25:0075[facility]annCARDIAC OAWGEPU9206-78-66 10:25:000.9[facility]annCARDIAC ENZYMES 2015-07-16 10:25:001.2[facility] HermannCHEM JWCDC5207-77-21 10:25:27048Yokiphtt HermannCHEM ZOJXL1390-24-38 10:25:000.6[facility] HermannCHEM AYYOC8909-02-11 10:25:003.1[facility]annCHEM PCRVH6278-28-60 10:25:009.0[facility]annCHEM IREIQ7662-92-24 10:25:006.3[facility]annCHEM OWTPN8496-62-78 10:25:0014 [facility]annCHEM VIGEN5067-17-89 10:25:0089[facility]annCHEM PANEL 2015-07-16 10:25:0019[facility]annCHEM RAKVE3844-40-99 10:25:0025[facility]annCHEM FYOTF0108-42-21 10:25:004.2[facility]annCHEM JWUWP2774-97-90 10:25:68651Rocvfpde HermannCHEM VEZRH3378-63-82 10:25:0014[facility]annCHEM LKAJD9174-12-98 10:25:000.70[facility]annCHEM GHAYI6208-59-44 10:25:63632 [facility]annCHEM QGOQM5861-22-52 10:25:0078[facility]annCHEM PANEL 2015-07-16 10:25:0020[facility]annCHEM XVXOC2549-01-08 10:25:0010.2[facility]annCHEM UDKFM6597-38-87 10:25:001.0[facility]annCHEM WNJBS4521-94-97 10:25:003.2[facility] VmfscctRLCLBAOTOM3497-56-81 10:25:008.6[facility] MCSYKDVLMY9087-14-04 10:25:31662Jfwetmpl LtqejfcRSBHQFBZVA5241-08-81 10:25:00 14.3[facility] RyzzygvYSFRBCAQBG4143-15-62 10:25:004.53[facility]annHEMATOLOGY 2015-07-16 10:25:005.5[facility] CqkczlgDZXUFMPNKI3522-25-37 10:25:00 Test Item Value Reference Range Interpretation Comments MCH (test code = MCH) 27.9 pg 27.0-31.0 [facility] ZdoewbwXTHMIYXXWB7884-86-43 10:25:0031.5[facility] HermannHEMATOLOGY 2015-07-16 10:25:0088.6[facility] UqxbwugYWBFJCRVRA4600-98-41 10:25:0040.2[facility] XyreqfpQWKTYHYYJT1377-17-21 10:25:0012.6[facility] WorpwuuLPVSEDQKAZ2866-79-36 10:25:000.2[facility] TmijlpdEICFFBYUAK0667-15-20 10:25:002.0[facility] ZSLQDVJCJD1021-71-86 10:25:000.9[facility] UhsxsuhSEMKXKWOCY7273-13-01 10:25:000.6 [facility] QjnisamAIATFLTIBS8085-25-89 10:25:002.6[facility] HermannHEMATOLOGY 2015-07-16 10:25:0011.0[facility] EbhtdrsGSJRFWOFFY7132-24-94 10:25:004.0[facility] OjamhqrHLEKUKXOGW0649-82-02 10:25:0036.1[facility] CbfxsivZELCPHBMTS3089-45-82 10:25:0048.0[facility] WqxysgbSCXYYIDGBB0404-54-07 10:25:000.1[facility] CARDIAC ZLKFTQD2488-56-21 04:22:00<0.02[facility] HermannCARDIAC ENZYMES 2015-07-16 04:22:0088[facility]annCARDIAC VGXUURE6615-56-19 04:22:001.1 [facility]annCARDIAC RYBLYBK6916-24-42 04:22:001.0[facility]annCARDIAC QGIISYZ1876-67-93 21:33:00<0.02[facility]annCARDIAC BCOHGSF4696-74-95 21:33:001.2[facility]annCARDIAC PIVICRS2152-02-93 21:33:37175Lesfawop Maciej CARDIAC XPONPER0438-19-51 21:33:001.2[facility] HermannCHEM POKXR9519-93-34 21:33:0090[facility]annCHEM FKZNT9485-39-27 21:33:0091[facility]annCHEM JGETD9864-62-67 21:33:0019[facility]annCHEM OFGJB5976-57-16 21:33:0017 [facility]annCHEM UOXNE6422-04-90 21:33:0012[facility]annCHEM PANEL 2015-07-15 21:33:000.8[facility] HermannCHEM LAOXI0250-79-76 21:33:0011.1[facility] HermannCHEM WUGLT0136-86-09 21:33:003.5[facility]annCHEM PRROK9874-12-50 21:33:0027[facility]annCHEM HQKZY5472-92-39 21:33:006.8[facility]annCHEM UGPIJ7812-91-07 21:33:008.7[facility] HermannCHEM HUOKY2750-56-25 21:33:003.3 [facility]annCHEM UFEJW3094-80-95 21:33:001.1[facility] HermannCHEM PANEL 2015-07-15 21:33:000.80[facility] HermannCHEM CFYQV7702-89-58 21:33:86830Aeboajci HermannCHEM OFGOG4110-56-35 21:33:53453Dwikplxq HermannCHEM KHKIZ6575-20-59 21:33:004.1[facility] HermannCHEM EAUUN0318-25-27 21:33:0010[facility]annCHEM QVHVO7073-84-07 21:33:0072[facility] LbdtzalSDSGTKCMIR8653-28-20 21:33:003.3 [facility] XswpfvdUDWGSIXYTY9304-86-41 21:33:000.2[facility]annHEMATOLOGY 2015-07-15 21:33:000.6[facility] XmvmfohMGVCGURZNY2002-65-92 21:33:002.3[facility] RhlrnpcZFFUAAPLVI4102-97-63 21:33:0051.8[facility] GoaojvyXQCTLJOBAO6307-43-69 21:33:000.6[facility] PypjjbqXHZGADRTMB2526-52-94 21:33:003.1[facility] UQFWTMRMXA7447-45-08 21:33:009.4[facility] HrvbkxhZJDJBSZNGY3206-83-47 21:33:00 35.1[facility] XwuokkeDZUZVFFBHY4136-08-55 21:33:000.0[facility]annHEMATOLOGY 2015-07-15 21:33:009.1[facility] DoflfwnVBLFMCMFUY0239-46-58 21:33:0087.6[facility] JshmrhyHFTTOUVDKK2514-48-69 21:33:0012.9[facility] ZisrqdxESNLTOPNGZ0323-17-62 21:33:0039.8[facility] IbkjzhdTFPPDHIRVA2450-63-67 21:33:0032.3[facility] WZLYQYTCNA5480-48-08 21:33:0014.8[facility] UjrjviwTJNAYCQEKE6405-14-90 21:33:00 Test Item Value Reference Range Interpretation Comments MCH (test code = MCH) 28.3 pg 27.0-31.0 [facility] RmqjxwoOYSTFDCPIU0057-30-47 21:33:43691Cwskfvir HermannHEMATOLOGY 2015-07-15 21:33:004.54[facility] SrjmnskDPTFWTEDIE4110-85-25 21:33:006.4[facility] ZcepeklYYEUVGNVZM1673-58-51 19:18:00Negative (05/18/15 2:18 PM)[facility] CARDIAC BAHWWTW4859-59-73 18:26:00<0.02[facility] HermannCHEM YPLXL0324-88-00 18:26:000.1[facility] HermannCHEM EYUCE4819-04-40 18:26:003.9[facility] HermannCHEM LCNUG8107-12-02 18:26:33309Dotqzyhi HermannCHEM KLDBW9347-21-97 18:26:000.5 [facility]annCHEM ACBAV0132-70-11 18:26:0022[facility] HermannCHEM PANEL 2015-05-18 18:26:0018[facility] HermannCHEM KZBKO3887-31-19 18:26:007.9[facility] HermannCHEM THLKR0314-34-94 18:26:004.0[facility]annCHEM QIBCS6991-78-90 18:26:000.4[facility]annCHEM AMXTK2216-22-13 18:26:001.0[facility] HermannCHEM TFRAN9828-18-17 18:26:28783Mthckbgp HermannCHEM GDLBX4333-40-09 18:26:0078 [facility]annCHEM HHLNH3795-53-90 18:26:81437Eafnbwad HermannCHEM PANEL 2015-05-18 18:26:003.9[facility] HermannCHEM VPRSW2892-07-18 18:26:000.9[facility] HermannCHEM UILED1968-33-50 18:26:0087[facility] HermannCHEM BWVKC9813-56-06 18:26:007[facility]annCHEM DBKBY9571-09-79 18:26:94848Okjhstdg HermannCHEM ZKOKD2876-61-83 18:26:0028[facility] HermannCHEM EOLQJ6095-76-72 18:26:0010.2 [facility]annCHEM WOFIK2198-70-37 18:26:0010.9[facility]annHEMATOLOGY 2015-05-18 18:26:0014.2[facility] CzbkzgpSXEZTGOOQY4212-98-59 18:26:004.96[facility] JqkscutAGGVTINDUR0032-51-72 18:26:00 Test Item Value Reference Range Interpretation Comments MCH (test code = MCH) 28.7 pg 27.0-31.0 [facility] VopexuxHEQVCGTUDS0997-09-42 18:26:0032.9[facility] HermannHEMATOLOGY 2015-05-18 18:26:0043.3[facility] VyuhvxxWTIJHKYABN4662-55-96 18:26:0087.2[facility] NdtrnxuYABOMPDFUQ7252-69-03 18:26:006.8[facility] OxoofrsXINVHGXZPJ6940-32-09 18:26:70850Tacouoxp YcdfuogTBZVGPKTJO5764-76-39 18:26:008.2[facility] IHCJYKALXL8362-93-95 18:26:0014.5[facility] FewqyrxSMPASKLBNJ9789-54-66 18:26:00 55.6[facility] MyfheebFABKYMHTYV7222-61-11 18:26:0032.7[facility] HermannHEMATOLOGY 2015-05-18 18:26:008.5[facility] CvppywrOENMNDGPQY4059-71-48 18:26:003.8[facility] QqsczgvDDBTTKQHEH6043-62-26 18:26:000.6[facility] XmimjzmCDFQAHGHQG2999-16-43 18:26:002.2[facility] DxyfwmzPOOFJLBIDI2676-96-77 18:26:002.6[facility] WQBAMXGOQM4681-18-81 18:26:000.2[facility] FworzdnUHCUMJRXIC0840-67-97 18:26:000.6 [facility] XjwvcbgLJSLGWZZQO8562-27-99 18:26:00Positive *NA*(05/18/15 1:26 PM) [facility] OpadcctUVDIALFFRR9664-17-20 18:26:33480015Vizqvrlz HermannIMMUNOLOGY 2015-05-18 18:26:005.5[facility] HermannCARDIAC LNJWFNK1623-46-59 18:51:00<0.02 [facility]annCHEM AVDEB7488-49-16 18:51:0090[facility] HermannCHEM PANEL 2015-05-09 18:51:0028[facility] HermannCHEM PYUUN6100-49-17 18:51:009.6[facility] HermannCHEM BTCOX9947-44-96 18:51:51951Kmwuukbm HermannCHEM BJKUB8735-03-45 18:51:000.8[facility] HermannCHEM OWFLO0727-28-68 18:51:86202Utzriqkm HermannCHEM TXEIZ2727-26-42 18:51:003.7[facility] HermannCHEM VUBSE0321-62-04 18:51:18366 [facility]annCHEM KHTKO1577-15-00 18:51:007[facility] HermannCHEM PANEL 2015-05-09 18:51:009.7[facility] BgxabfrRKWBWNWJAH6843-70-65 18:51:0014.4[facility] MsvnhykCZCSHVKJNM5310-54-63 18:51:0032.5[facility] VscalnkTHXLDYQOSX8132-54-26 18:51:00 Test Item Value Reference Range Interpretation Comments MCH (test code = MCH) 28.7 pg 27.0-31.0 [facility] MfdngbkNIOLQZQSLQ5645-78-42 18:51:88652Gznccypv HermannHEMATOLOGY 2015-05-09 18:51:007.6[facility] BekaqgtJELYZOSAAW8150-60-90 18:51:0088.2[facility] CrvzprdDJOHZCCCEZ2035-13-65 18:51:0041.9[facility] OcajybwRKDYGUOVCE3967-85-80 18:51:004.75[facility] IebywzsPJYXXCGFER9575-48-39 18:51:0013.6[facility] KFKDPKFUGQ7600-51-07 18:51:005.6[facility] GyqyuwoCSXKRDXILU0798-69-52 18:51:002.1 [facility] DrmjwikUTSWMGYXFQ3253-97-33 18:51:000.1[facility] HermannHEMATOLOGY 2015-05-09 18:51:000.2[facility] XnvkiivPCMMSRUTYS7263-92-76 18:51:000.4[facility] YfdkrfiFDPYFDSNOE2032-98-10 18:51:0050.8[facility] WziktfeCXOPEJBMYQ0415-85-16 18:51:002.8[facility] TwrzqiqFWFFZWDBTX9769-97-45 18:51:002.9[facility] UZYSOCWIPD9685-87-27 18:51:001.1[facility] QsvydsvWBZDXJNKQZ4906-87-69 18:51:007.7 [facility] EkgusitFWWLIEBDBD8841-93-85 18:51:0037.6[facility] HermannCARDIAC ENZYMES 2015-05-02 22:03:00<0.02[facility] HermannCHEM VPWKR7355-10-16 22:03:003.2 [facility]annCHEM UTSPF5086-71-77 22:03:002.1[facility] HermannELECTROLYTES 2015-05-02 22:03:0012.4[facility] CxwxtxsTFQYHQSLLLRH7196-16-21 22:03:0068[facility] VhrgumjMKDAFSSKWGCY3706-55-07 22:03:72752Tnhcyyjt DvafnwrPRDXPEUHYKFK6518-71-87 22:03:93301Gioctzjv LeyoioiQJPUHHYTXFLP4795-93-60 22:03:0028[facility] IJZQRMBLPAFU2771-04-90 22:03:008.8[facility] JcjbuzaKZZLPJBQAVLP3564-21-26 22:03:003.4[facility] TqyjqbrSYVZBUAECJFX0905-63-09 22:03:000.9[facility] MWKFANEPSZVP2216-81-11 22:03:0092[facility] GkmsudoLODXGMVERJWB1210-31-36 22:03:00 6[facility] HdqrcotWTCOYPXMWQ2246-64-31 22:03:008.0[facility]annHEMATOLOGY 2015-05-02 22:03:0014.1[facility] BkwvnjaHWHGIZDUTT2280-01-18 22:03:93378Zserwqzc MsbhxlwKHBTRZQFZN4029-71-26 22:03:0032.6[facility] RfdwbwrHTPWGSCUOG1382-98-53 22:03:008.0[facility] TsexuarDGYFXDEDVB8436-63-43 22:03:0040.2[facility] WIADWJWYPN7890-94-82 22:03:0087.4[facility] RyfkvboWSWIBUYGCY5120-72-86 22:03:00 13.1[facility] CuzmnnnSOAVGYIWSX1062-82-20 22:03:004.60[facility]annHEMATOLOGY 2015-05-02 22:03:00 Test Item Value Reference Range Interpretation Comments MCH (test code = MCH) 28.5 pg 27.0-31.0 [facility] KghwchgNEOUVTHEFM0915-81-74 22:03:0026.3[facility]annHEMATOLOGY 2015-05-02 22:03:0060.9[facility] MhcrxgwWBPDMMFQSL5350-06-92 22:03:001.0[facility] KxqydcxCJFRTLZTCQ6979-51-62 22:03:003.0[facility] KvwrnoiTUHQLBUSAN3444-04-36 22:03:008.8[facility] DfwskbeBNKFWFDYSE7982-22-05 22:03:000.7[facility] GYURBZAPYP5781-26-04 22:03:000.2[facility] YoubhiwJSEMWJSSIQ2202-34-47 22:03:002.1 [facility] RweuwalHGBSBVNEFV4955-40-37 22:03:004.9[facility] HermannHEMATOLOGY 2015-05-02 22:03:000.1[facility]annURINE AND YWESL8064-64-03 21:38:00Negative (05/02/15 4:38 PM)[facility]UR[facility] TASNN7569-69-14 21:38:00Moderate *ABN*(05/02/15 4:38 PM)[facility] AND QMVOU3871-79-70 21:38:00None Seen (05/02/15 4:38 PM)[facility] TWXVQ5692-11-20 21:38:00None Seen (05/02/15 4:38 PM)[facility] QWWLB6255-70-27 21:38:00Negative (05/02/15 4:38 PM)[facility] RPVQE1911-18-00 21:38:00Negative *NA*(05/02/15 4:38 PM)[facility] FDPXX8292-18-66 21:38:000.2 [facility] UUQIV6334-80-79 21:38:00Negative (05/02/15 4:38 PM) [facility] OCUYD6537-86-30 21:38:00Negative *NA*(05/02/15 4:38 PM) [facility] RJTXG4087-99-21 21:38:00Yellow *NA*(05/02/15 4:38 PM) [facility] FBFHH1259-97-92 21:38:00 Test Item Value Reference Range Interpretation Comments UA pH (test code = UA pH) 6.0 1 5.0-8.0 [facility] VKRYD2661-10-85 21:38:00Slight Cloudy (05/02/15 4:38 PM) [facility] BYLWJ6840-76-88 21:38:00Negative (05/02/15 4:38 PM) [facility] FFHEE5406-93-77 21:38:00 Test Item Value Reference Range Interpretation Comments UA Spec Grav (test code = UA Spec 1.006 1 Grav) [facility]annCHEM JOSLT6592-37-32 09:28:03264Hqnksagy HermannCHEM PANEL 2015-03-24 09:28:58554Kojqfgnp HermannCHEM ROUWD1552-18-57 09:28:000.7[facility] HermannCHEM IOAPF5402-13-84 09:28:004[facility]annCHEM OATQZ5151-16-21 09:28:003.2[facility] HermannCHEM EBEKG9002-73-46 09:28:28743Pbctkefs HermannCHEM LKPJJ2509-14-03 09:28:0091[facility] HermannCHEM YSDZI2470-16-82 09:28:003.5 [facility]annCHEM BQGYY6198-77-70 09:28:006.6[facility] HermannCHEM PANEL 2015-03-24 09:28:43811Fpgdmydj HermannCHEM HHPBF1648-44-46 09:28:009.1[facility] HermannCHEM AGTMR6499-86-11 09:28:0027[facility] HermannCHEM OEXYX8669-31-33 09:28:0011.2[facility] HermannCHEM YNRIQ7698-57-07 09:28:0021[facility] HermannCHEM PWVNW7646-75-46 09:28:0034[facility]annCHEM TGNTV2747-05-25 09:28:000.6 [facility]annCHEM DXGZT5987-99-56 09:28:0095[facility] HermannCHEM PANEL 2015-03-24 09:28:006[facility] HermannCHEM RAFXW9976-54-42 09:28:001.1[facility] HermannCHEM UYRFA0400-01-98 09:28:003.1[facility] JvljnuhBHNGXZMODO9485-66-75 09:28:0011.3[facility] WiwzkzzIAZXLLQMAO8804-99-51 09:28:0027.1[facility] QBLDNAXBXD2035-47-44 09:28:005.9[facility] KsjqmhcGBWODEWIYJ6029-64-47 09:28:003.3 [facility] JumyhnfCJSPQBIRGR7991-59-37 09:28:000.7[facility] HermannHEMATOLOGY 2015-03-24 09:28:0055.0[facility] PxxjrrxZTOVEDBPJM4472-65-68 09:28:000.7[facility] XqvzxouIVBIGFIIXN0926-31-29 09:28:001.6[facility] RkwzlkzOHSDUDOEDE7324-82-53 09:28:000.4[facility] GqmnowjRBSATNWDJV3170-28-56 09:28:004.21[facility] BZSHSTRCEH6505-14-47 09:28:005.9[facility] JsutsgyGIEIFUVJYQ0379-61-95 09:28:06190 [facility] RdoqzmuBULXSXTQLK9788-21-42 09:28:0032.4[facility] HermannHEMATOLOGY 2015-03-24 09:28:0014.2[facility] DphaineLIBWPQKDKA2374-83-98 09:28:008.6[facility] IcijqeqZFMVAASVGP1433-96-13 09:28:0037.2[facility] KxfnauuXWIHMASBXP6394-17-79 09:28:0088.3[facility] EzqygpoAUAHZFFZBX1296-13-83 09:28:0012.1[facility] EWYIVSVWBI5113-10-08 09:28:00 Test Item Value Reference Range Interpretation Comments MCH (test code = MCH) 28.6 pg 27.0-31.0 [facility]UR[facility] PFUPT2294-96-63 18:14:00Negative (03/23/15 1:14 PM) [facility] ZZNPIOT5257-63-35 10:51:000.8[facility]AC QVZCZWK1961-06-64 10:51:0070[facility] ZYIPAAX7383-97-33 10:51:00 1.1[facility]annCHEM IZJHT9382-10-51 10:51:08745Aapqklxf HermannCHEM PANEL 2015-03-23 10:51:0027[facility]annCHEM YICZF9060-16-16 10:51:009.2[facility]annCHEM AAMLG1516-50-20 10:51:19726Ejbzrbjt [facility]annCHEM JXKCL1207-61-77 10:51:33308Tbsxjigm HermannCHEM FCYGN8542-38-07 10:51:003.5[facility]annCHEM TZDJI3930-83-27 10:51:000.7[facility]annCHEM XTYUZ1548-45-28 10:51:008 [facility]annCHE[facility] AHDSO6417-32-85 10:51:87016Kfzwcpjr HermannCHEM PANEL 2015-03-23 10:51:0010.5[facility] TpzmdacZNRPOTUJIV5111-97-13 10:51:001.3[facility] LaipjzxOTDJIQAALP7529-65-79 10:51:003.4[facility] AgrgpvcLWCEMVEQQE6761-25-65 10:51:000.6[facility] JnhqsquQDJYLUMZGK8904-70-94 10:51:004.0[facility] JIVLUYVEVO0920-77-99 10:51:000.2[facility] LdehgfwLKJBSHELYA7625-16-44 10:51:000.6 [facility] EziwcklHYFFWEMZQH9483-54-87 10:51:0011.0[facility]annHEMATOLOGY 2015-03-23 10:51:0023.6[facility] PwflzluKIJGHXEIBE0753-42-11 10:51:0060.8[facility] VbjjbchEWTDFMLQND0259-81-61 10:51:008.3[facility] RrotsrmHOQWYCHLJK6405-07-56 10:51:11731Apvxfftl GoxzyisTTWQDZBFOW0311-28-67 10:51:0014.6[facility] RQNYCLQFXJ1685-81-66 10:51:0088.0[facility] UleukejUANBHIGXSG4000-78-99 10:51:00 Test Item Value Reference Range Interpretation Comments MCH (test code = MCH) 28.7 pg 27.0-31.0 [facility] TfyvvssWFZOBVSEDA3628-57-63 10:51:0034.7[facility]annHEMATOLOGY 2015-03-23 10:51:0032.6[facility] QgtobkpKNYUDLIWAM4890-57-59 10:51:0011.3[facility] OthnuenLNHIMBINZZ6961-55-91 10:51:003.94[facility] LrxioapQWHOYIQRMQ5803-33-64 10:51:005.6[facility]annCARDIAC VUNZXCZ7692-85-94 10:19:001.6[facility] CARDIAC CZHDKDS6785-44-32 10:19:001.0[facility]annCARDIAC MKQMACE0157-86-73 10:19:0064[facility]annCHEM VYCXW7550-30-30 10:19:52042Thvccrmb HermannCHEM GKKCG0063-30-87 10:19:008.7[facility]annCHEM YXRZZ5472-42-70 10:19:07203 [facility]annCHEM GKWCG8914-39-36 10:19:003.9[facility]annCHEM PANEL 2015-03-22 10:19:73355Ekycsavr HermannCHEM ARIQK3076-84-92 10:19:0027[facility]annCHEM YULOP9910-53-26 10:19:0094[facility]annCHEM BLGHR0171-73-44 10:19:008[facility]annCHEM BSOWN5750-97-04 10:19:000.6[facility]annCHEM GBPHG9273-63-77 10:19:008.9[facility] RcaitydWMOVAOBCHN6130-68-73 10:19:000.2 [facility] LnezfaoQKFUQBPSWL3366-56-86 10:19:000.5[facility]annHEMATOLOGY 2015-03-22 10:19:000.9[facility] MlqjdsqIOEYQHRGHS7081-25-20 10:19:0011.2[facility] ItlrjfmJQXXEDJIGA5763-75-03 10:19:002.1[facility] NfetsicSZYJDZVFEO6990-42-65 10:19:003.7[facility] ClibyipINMZLYWEVA5458-18-54 10:19:001.6[facility] KMKFUTWAWW6216-47-86 10:19:0048.6[facility] LgstdeuIQCNLZFEHW1503-91-89 10:19:00 35.6[facility] WzswyprJXQJYQARNO0131-46-00 10:19:008.9[facility]annHEMATOLOGY 2015-03-22 10:19:004.4[facility] PrtsqxsJIMIEARWWB8374-53-36 10:19:00 Test Item Value Reference Range Interpretation Comments MCH (test code = MCH) 29.9 pg 27.0-31.0 [facility] FxeotldFSIGVDRAGM5837-73-27 10:19:0086.5[facility]annHEMATOLOGY 2015-03-22 10:19:0034.6[facility] IcbbcnrPUAFAKVGZR7517-96-79 10:19:0011.7[facility] PuxrrgxTIZLSGXMPN3232-02-47 10:19:003.92[facility] YryqiepDYHLZIHUXX3823-37-65 10:19:0033.9[facility] CqiqsioESDZCMQSOP0701-45-55 10:19:0014.6[facility] FQXJTJMCOM1084-32-38 10:19:44975Mlyxxdjh HermannCARDIAC SGPDKQH2294-05-87 03:22:001.6[facility]annCARDIAC ZBQYQLU7645-62-29 03:22:0077[facility] CARDIAC XTCNCHV4209-30-96 03:22:001.2[facility]annCHEM FLDGW8017-62-57 02:44:001.4[facility]annCARDIAC FWMMKOG5948-75-99 21:13:00<0.02[facility]annCHEM PKRAX7788-08-72 21:13:003.3[facility]annCHEM XGNGU6932-98-31 21:13:001.1[facility]annCHEM PHBEO5687-21-93 21:13:0016[facility]annCHEM KSMXF5811-55-94 21:13:59425Abrgiyyy HermannCHEM PBTKX2856-76-27 21:13:0025 [facility]annCHEM WADEI0835-08-93 21:13:000.5[facility]annCHEM PANEL 2015-03-21 21:13:0032[facility]annCHEM LHVVJ2881-31-61 21:13:003.7[facility]annCHEM HHQPY3921-79-09 21:13:007.0[facility] SmxugkuVPQQEAJPDC7892-56-95 21:13:000.0[facility] JuziaefZWGMTHLDLJ6301-31-04 21:13:001.04[facility] OQLRAQLEIN0387-89-05 21:13:00 Test Item Value Reference Range Interpretation Comments PT (test code = PT) 13.6 s 12.0-14.7 [facility] RkbjnzfPOVXQNXXYB6766-38-95 21:13:00 Test Item Value Reference Range Interpretation Comments PTT (test code = PTT) 35.2 s 22.9-35.8 [facility]annCARDIAC YHXGQWW3721-40-80 21:10:006[facility]annCARDIAC GPLARMG6222-39-70 21:02:00<0.02[facility]annCARDIAC GWMFBZO5506-18-78 21:02:0031[facility]annCARDIAC FCHHODJ4439-88-60 21:02:000.8[facility] CARDIAC DYBPJTN3334-31-32 21:02:0070[facility]annCARDIAC FNRRSIL5255-65-18 21:02:001.1[facility]annCHEM IZGNO7877-06-68 21:02:20913Cqcmyjhp HermannCHEM MMMBT4586-06-25 21:02:0099[facility]annCHEM BVUOM1920-89-65 21:02:000.6 [facility]annCHEM AIYMQ9122-90-74 21:02:0011[facility]annCHEM PANEL 2015-03-11 21:02:009.4[facility]annCHEM FEQWH8308-87-34 21:02:003.1[facility]annCHEM WKGCS2027-20-57 21:02:001.1[facility]annCHEM JYBAR1957-08-70 21:02:0073[facility]annCHEM LTELV4283-92-38 21:02:008[facility]annCHEM IQAHM3074-30-25 21:02:000.7[facility]annCHEM HZREM8489-10-83 21:02:59714 [facility]annCHEM HZHMW1522-18-63 21:02:003.4[facility]annCHEM PANEL 2015-03-11 21:02:0028[facility]annCHEM JXTMD5375-55-02 21:02:84640Ftlaszjw HermannCHEM FKCSC4018-63-52 21:02:008.9[facility]annCHEM ZWBPA8073-16-15 21:02:006.5[facility]annCHEM PBIUO2435-09-91 21:02:003.4[facility]annCHEM AUCNS2229-97-90 21:02:0030[facility]annCHEM RRXUZ9726-65-55 21:02:0021 [facility] CmxeydnRCFRTYFIOW3081-20-77 21:02:0015.1[facility]annHEMATOLOGY 2015-03-11 21:02:0033.1[facility] HvxzqgwVLTBGWZKOU2261-03-30 21:02:11868Tgeljhff BwqaiviJSBTGVVZAE8449-04-96 21:02:008.1[facility] ImbkvxeNPHPDIDFZX1172-61-86 21:02:0034.6[facility] BuqlpowCOVJYWPYAL2078-52-30 21:02:0011.5[facility] EAZANEFLGG7482-01-22 21:02:00 Test Item Value Reference Range Interpretation Comments MCH (test code = MCH) 28.8 pg 27.0-31.0 [facility] BbxclfjUSFLMKELOZ5784-60-80 21:02:0086.9[facility]annHEMATOLOGY 2015-03-11 21:02:003.98[facility] FiduqpbLBUOJSNVPF2342-31-03 21:02:006.5[facility] JjumqxeRWRWHFLYYB0097-74-49 21:02:00 Test Item Value Reference Range Interpretation Comments PTT (test code = PTT) 32.8 s 22.9-35.8 [facility] UbjumqsYGATFGRUWN5921-32-65 21:02:00 Test Item Value Reference Range Interpretation Comments PT (test code = PT) 13.3 s 12.0-14.7 [facility] ZtlcwtuDBOFKQLLVN8901-69-67 21:02:001.01[facility]annHEMATOLOGY 2015-03-11 21:02:000.0[facility] OvrgfecWRCDJYJABD6558-66-89 21:02:003.7[facility] RxpjualVWKTXCFNUY1470-74-39 21:02:000.2[facility] OkikzpzBFCJPRBREE1456-75-59 21:02:000.6[facility] MaynebqUZTBPJWFWY0929-35-28 21:02:001.9[facility] GUGJTICPHV4997-73-23 21:02:0056.9[facility] JalquplONQTUWWQER3044-06-83 21:02:00 2.7[facility] TrberozJISUBXHGTV0188-66-34 21:02:000.4[facility] HermannHEMATOLOGY 2015-03-11 21:02:009.9[facility] BjgranlALJFIQMVLF9691-85-51 21:02:0030.1[facility] HermannCARDIAC GDODGLW7612-13-88 09:33:00<0.02[facility]annCARDIAC ENZYMES 2015-03-05 06:16:00<0.02[facility]annCHEM VGGPH2782-06-43 06:16:001.1 [facility]annCHEM DPTRK1603-15-59 06:16:003.5[facility]annCHEM PANEL 2015-03-05 06:16:000.5[facility] HermannCHEM XVQCJ9362-07-99 06:16:000.1[facility]annCHEM QKSOE5685-69-01 06:16:0025[facility]annCHEM LTWAH0664-78-89 06:16:0021[facility]annCHEM JJHWH0560-93-66 06:16:003.7[facility] HermannCHEM HUXWF8673-46-75 06:16:88841Aoqlzqfa HermannCHEM EHHHY3945-74-82 06:16:000.6 [facility]annCHEM JUSXN1075-84-87 06:16:007.2[facility] HermannCHEM PANEL 2015-03-05 06:16:90408Ggeiczhr TletihtIVCGXAYSIYUD8394-99-98 06:16:0012.6 [facility] ObnkxgjGJUGHINYTNRO0745-72-38 06:16:0078[facility] HermannELECTROLYTES 2015-03-05 06:16:009.6[facility] UiojlmfCWTEXXQLAIKO4903-59-77 06:16:0029[facility] KljuiyqALWDUXQPTXDX6025-77-16 06:16:003.6[facility] SphajclCLREJTQIFZUU5621-36-32 06:16:39547Twhroxdb IbejtfcXQNQPDOVNUJN2604-95-34 06:16:53864Svyodwly Dexter MAXVIIOZCBTC1688-97-95 06:16:000.8[facility] QtkgeohADFPOWIZTYAN6053-91-09 06:16:009[facility] JhldygaZRIIGMORHXWD4975-07-18 06:16:0096[facility] WFRMMWEREY2459-59-59 06:16:002.6[facility] HyjfhfiTUZYKVYRDI4315-75-98 06:16:000.9 [facility] SmwupukDINJSNYGQK7698-99-15 06:16:000.7[facility] HermannHEMATOLOGY 2015-03-05 06:16:001.7[facility] FmeryrvIYHTLJSMDT9287-43-53 06:16:006.7[facility] XkzflmiVGUYRXVNSQ0146-69-77 06:16:0025.0[facility] WcyyxesZIBOWGMUVF8231-82-37 06:16:0064.3[facility] IzpdsleHLAYLJASYM4501-31-37 06:16:008.3[facility] VYTXLPEROY8345-46-07 06:16:000.2[facility] WzodkfyJCFSMABTZF1609-60-18 06:16:000.1 [facility] AjqsnmhWMLDXURYEM2515-52-96 06:16:0087.7[facility] HermannHEMATOLOGY 2015-03-05 06:16:0039.7[facility] NtydwytPQUEAYJUTY9505-65-80 06:16:008.0[facility] RowxylvAJBBAFGDJX4634-31-50 06:16:92930Ksikdgyx YugqvteHBCMSJVZYG7507-05-95 06:16:0014.6[facility] PmwtoghZXDDGCMXWY4212-48-30 06:16:0032.4[facility] GEXIPCTPCX6960-33-87 06:16:00 Test Item Value Reference Range Interpretation Comments MCH (test code = MCH) 28.4 pg 27.0-31.0 [facility] CvlblptEFRCWANEXS3389-82-25 06:16:0010.5[facility] HermannHEMATOLOGY 2015-03-05 06:16:004.53[facility] RcixeyhCJLGHJFLDI6629-68-48 06:16:0012.9[facility] HermannCHEM RIGHR3653-77-66 09:16:002.0[facility] HermannCHEM KARNZ6086-06-52 09:16:003.6[facility]annCHEM XFNEV5235-35-90 09:16:54403Lnulvmku HermannCHEM NCWKU2650-04-49 09:16:0017[facility]annCHEM TRYJR3394-83-95 09:16:003.3 [facility]annCHEM IXXGX0550-86-60 09:16:001.1[facility]annCHEM PANEL 2015-02-25 09:16:006.3[facility] HermannCHEM LLURU8751-72-60 09:16:0021[facility]annCHEM NPUGQ7451-41-26 09:16:003.0[facility]annCHEM FEZVT4443-30-55 09:16:000.5[facility]annCHEM DUOUD9892-13-48 09:16:80563Pwsgkftc HermannCHEM NLQEN9661-90-07 09:16:0011[facility]annCHEM IKZEO6688-63-63 09:16:009.1 [facility]annCHEM VTWJK9457-43-38 09:16:0099[facility]annCHEM PANEL 2015-02-25 09:16:008[facility]annCHEM JCHQR9863-91-02 09:16:49655Zkmjiwsr HermannCHEM JBUOA3737-31-80 09:16:000.7[facility]annCHEM YJLFB4619-47-41 09:16:008.9[facility]annCHEM PPBYE2926-36-41 09:16:46469Vyxpjvec HermannCHEM WJKXX1510-08-31 09:16:0028[facility]annCHEM CEBPS6714-79-20 09:16:003.9 [facility] ApfsfueKRVMCXSUEW4594-05-51 09:16:51809Gbvsvqtq HermannHEMATOLOGY 2015-02-25 09:16:008.8[facility] NphecnoHYHGAMYZZS8120-33-31 09:16:0014.9[facility] GpgmwxmVVXNHIHVJQ1424-04-28 09:16:005.9[facility] VwwmyjaKHECTHZKKS9871-94-34 09:16:0088.4[facility] RfhilnaZWXGGFJALE4701-22-35 09:16:0037.2[facility] JXWKNYZQNH3941-31-47 09:16:00 Test Item Value Reference Range Interpretation Comments MCH (test code = MCH) 28.6 pg 27.0-31.0 [facility] AimlvlgFJIMXUQJRD4097-16-88 09:16:0032.4[facility] HermannHEMATOLOGY 2015-02-25 09:16:004.21[facility] AxnuhtcTATPWGDXJT1949-11-01 09:16:0012.0[facility] ZhjnlcyFJYOPCXLVO7944-11-29 09:16:0031.9[facility] OfdjhdjHESEGQTVLU8924 09:16:000.8[facility] GzzzujzCNVLKWDONP4564-07-80 09:16:003.1[facility] VWKDGXHOXB3584-23-43 09:16:0011.6[facility] OdblzcxNQEYMJFBBY3628-68-13 09:16:00 2.9[facility] FjknemyZXKFZRZASO6376-86-31 09:16:0052.8[facility] HermannHEMATOLOGY 2015-02-25 09:16:000.7[facility] PoqidnjEBTTRGGMTQ9740-23-35 09:16:001.9[facility] KkjpkmxDFMBRTOSBE1363-83-19 09:16:000.2[facility] HermannCARDIAC NQXKUUI8789-24-23 04:30:0074[facility]annCARDIAC VYJEJYU5915-36-24 04:30:001.2[facility] CARDIAC ZMYVJXO2143-94-16 04:30:00<0.02[facility] HermannCARDIAC ENZYMES 2015-02-25 04:30:000.9[facility]annCARDIAC ZGDYZTE3290-93-17 23:29:00<0.02 [facility]annCARDIAC SMNLBMK3114-22-02 23:29:000.7[facility]annCARDIAC FBVGCYD6836-62-14 23:29:0068[facility]annCARDIAC PDRGQLL4450-19-57 23:29:00 1.0[facility]annCARDIAC GSFSIIF9805-70-02 17:33:000.9[facility]annCARDIAC HBHYEDR4561-80-53 17:33:00<0.02[facility]annCARDIAC NFYTBTQ9064-24-83 17:33:000.7[facility]annCARDIAC VVQIEMT2238-79-56 17:33:0076[facility] CHEM JNPHW4420-04-30 17:33:0090[facility] HermannCHEM DZFZI1449-48-67 17:33:003.1 [facility]annCHEM SUAJK2804-03-17 17:33:56395Xdfpvmgm HermannCHEM PANEL 2015-02-24 17:33:000.3[facility] HermannCHEM EZNQK3436-50-40 17:33:001.1[facility] HermannCHEM OLJSR8656-74-63 17:33:007.3[facility] HermannCHEM VCBBP5766-77-40 17:33:0012[facility] HermannCHEM DRSNJ4130-03-64 17:33:000.8[facility] HermannCHEM CLALK8637-04-16 17:33:03389Hcklrxrs HermannCHEM KCSSQ3890-32-96 17:33:0088 [facility]annCHEM JKJEL9209-07-59 17:33:003.3[facility] HermannCHEM PANEL 2015-02-24 17:33:42475Lvscaoaj HermannCHEM WZNGH1608-97-11 17:33:0010[facility] HermannCHEM RLKZY9670-43-97 17:33:0015[facility] HermannCHEM ACTXD0718-66-64 17:33:0022[facility]annCHEM BIWFV2630-66-64 17:33:008.9[facility] HermannCHEM YYGPN1511-86-02 17:33:0030[facility] HermannCHEM LAWKE9116-21-85 17:33:006.6 [facility]annCHEM ZGGGC8594-07-47 17:33:003.5[facility] HermannHEMATOLOGY 2015-02-24 17:33:0055.9[facility] AjmrrigIXEJBEOIUF3764-93-16 17:33:0028.7[facility] ChiadzlFESKFLZQUB4330-14-99 17:33:003.7[facility] PnvndqfRAZIBEUOTM4207-71-34 17:33:000.7[facility] BqmwaedRZOYTQSTYZ8001-01-98 17:33:001.9[facility] JYLXCCSOEA6077-30-12 17:33:002.2[facility] FdjkpwvRGSQZUAPYD9897-89-28 17:33:00 12.5[facility] EqdmvheVHTJYHRFVN7770-35-25 17:33:000.0[facility] HermannHEMATOLOGY 2015-02-24 17:33:000.1[facility] BpicoisZCPQJWVNFX4657-80-72 17:33:000.8[facility] LyqudujGNYWESLWWW8618-87-13 17:33:008.8[facility] DitncbcAJFDFJGXPF3610-15-92 17:33:00 Test Item Value Reference Range Interpretation Comments MCH (test code = MCH) 28.1 pg 27.0-31.0 [facility] FsvhoufQJMIAHAZSX8327-43-25 17:33:0014.8[facility] HermannHEMATOLOGY 2015-02-24 17:33:0032.2[facility] WxdanovPVAZNXDRPN9744-81-88 17:33:07866Uuoerjsm TdrgfpzKOTXSGZPNN7265-47-57 17:33:0011.4[facility] GzcolilQASHHBEOGL3722-48-52 17:33:004.04[facility] ErlhknvWNETQCCTMS2295-25-46 17:33:006.5[facility] WMCEVGUGNU6454-74-66 17:33:0035.3[facility] IugrjufGAKUMQEQWP2267-82-54 17:33:00 87.2[facility] HermannCARDIAC HIMZNCB6436-05-96 09:54:006[facility]annCARDIAC FVSQJUT9502-58-39 09:54:00<0.02[facility] HermannCARDIAC JBESHII0106-90-73 09:54:001.0[facility]annCARDIAC YCOUHZS0457-81-52 09:54:0077[facility] CHEM JQZLS2753-56-47 09:54:001.8[facility] HermannCHEM ZRMLG6719-86-46 09:54:54381 [facility]annCHEM BJVMQ8207-77-70 09:54:87882Fbvaxemg HermannCHEM PANEL 2015-02-17 09:54:003.8[facility] HermannCHEM YLLIZ9584-71-47 09:54:46408Jcpjcrac HermannCHEM OQANH0454-99-21 09:54:008.6[facility] HermannCHEM UZRPM4573-30-52 09:54:0011.8[facility] HermannCHEM YGDWW4184-02-56 09:54:0025[facility] HermannCHEM GFBUW6732-81-67 09:54:000.6[facility] HermannCHEM VKXFT2025-53-62 09:54:006 [facility]annCHEM TCWUW8002-11-11 09:54:0072[facility] HermannHEMATOLOGY 2015-02-17 09:54:0011.5[facility] ZyqgnmxSPUGAZ4615-08-21 09:54:0051[facility] ScxpeehLUPAPQ8180-80-69 09:54:0017[facility] TmcnrkoDMHDHM6782-17-78 09:54:0096 [facility] PoyffxoNQKCGH4865-82-54 09:54:71981Ijpqynew BwatzrfXBGSIW6360-31-11 09:54:0084[facility] GzgshxtELEXGT1991-88-77 09:54:003.22[facility] HermannSPECIAL TEEKAGIIX1475-41-80 09:54:005.8[facility] HermannCARDIAC LUIXJWZ0652-17-84 04:20:00<0.02[facility]annCARDIAC ATLPZNP6552-83-74 04:20:0092[facility]annCARDIAC UNFPKKE9410-96-33 04:20:001.2[facility]annCARDIAC ENZYMES 2015-02-16 22:59:001.2[facility]annCARDIAC SFHIGBW1405-86-10 22:59:001.3 [facility]annCARDIAC FWZDYMY7987-29-16 22:59:0093[facility]annCARDIAC SCCRTQF8012-04-70 22:59:00<0.02[facility]annCARDIAC XERZLIV3882-94-38 22:59:004[facility] HermannCHEM SYXWO8005-60-38 22:59:67791Lhjeimhb HermannCHEM MSVUV2767-62-58 22:59:001.0[facility] HermannCHEM DIFNJ7254-04-72 22:59:003.6 [facility]annCHEM ZYFHR4917-53-05 22:59:000.4[facility] HermannCHEM PANEL 2015-02-16 22:59:000.1[facility] HermannCHEM VTAZU0864-44-10 22:59:000.5[facility] HermannCHEM VVJET2389-00-83 22:59:007.3[facility] HermannCHEM TADCS0711-66-71 22:59:47203Knikhvvm HermannCHEM JAPLP0703-71-20 22:59:0015[facility] HermannCHEM BYVEC8086-13-04 22:59:0021[facility] HermannCHEM ZXSDO7272-17-19 22:59:003.7 [facility]annCHEM UMORL9540-06-29 22:59:003.1[facility] HermannCHEM PANEL 2015-02-16 22:59:001.9[facility] HermannCHEM SNUUG2862-10-74 22:59:0090[facility] HermannCHEM YSEAF5685-98-10 22:59:009.0[facility] HermannCHEM NMPWW8730-11-85 22:59:0028[facility] HermannCHEM BVSTL2892-60-94 22:59:38744Ojwmgppc HermannCHEM CEDBR8013-99-05 22:59:000.8[facility] HermannCHEM XUYOY3446-27-22 22:59:0011 [facility]annCHEM EJLZE1157-99-11 22:59:003.5[facility] HermannCHEM PANEL 2015-02-16 22:59:44531Iffojbkf HermannCHEM LQCIE7881-88-03 22:59:0076[facility] HermannCHEM ACZUO2950-83-19 22:59:007.5[facility] JeuzzmgFXDUOFFIKI0953-93-51 22:59:003.3[facility] HjcqtzuHSMLGAEACV3310-41-06 22:59:009.1[facility] DAXKEEVPEH9699-79-99 22:59:0028.9[facility] MboetkhJQTDWXSNWD3376-45-32 22:59:00 58.3[facility] CgrbjfzCAGMXRPSOO1938-33-64 22:59:003.8[facility] HermannHEMATOLOGY 2015-02-16 22:59:000.4[facility] JkzmwvlSQQKLUMBCO2375-87-69 22:59:000.6[facility] MwwvhomGNAWWGUHNY2577-68-35 22:59:001.9[facility] KdvzgenKIKYTHCYWX7304-52-07 22:59:000.2[facility] OxgyftoAQSENHTPWA0544-28-79 22:59:000.0[facility] LCEVSVXUHG7014-10-38 22:59:00 Test Item Value Reference Range Interpretation Comments PTT (test code = PTT) 36.0 s 22.9-35.8 [facility] WncwdxzXZWBDELAPN9560-88-44 22:59:00 Test Item Value Reference Range Interpretation Comments PT (test code = PT) 12.9 s 12.0-14.7 [facility] MojznrgZHCYORSZCR6751-59-64 22:59:000.97[facility] HermannHEMATOLOGY 2015-02-16 22:59:01988Obgpfvqu SskgzzlYBSEMDCBIE3652-24-04 22:59:0014.7[facility] DkqjxgiWTEFGLLVQN1664-97-56 22:59:008.7[facility] GykaqgbVKIQLHESQR1493-31-97 22:59:0032.6[facility] ZpqlhdiSZMEWLZMWJ5080-27-71 22:59:0039.5[facility] HKZJVBFXFD9894-46-70 22:59:0087.3[facility] LqoeqlcIYCYORRCVE4513-02-41 22:59:00 Test Item Value Reference Range Interpretation Comments MCH (test code = MCH) 28.4 pg 27.0-31.0 [facility] VzdyptqHVANYTTLAX3410-28-23 22:59:004.52[facility] HermannHEMATOLOGY 2015-02-16 22:59:0012.9[facility] EkumafzMTUZIINTVY7944-72-47 22:59:006.5[facility] AmglfxyIDYGAOQUU5018-02-12 22:59:0046[facility] HermannCARDIAC SUDDMKX8781-26-53 21:17:0015[facility]annCARDIAC IJMNPWM5102-44-51 21:17:00<0.02[facility] HermannCARDIAC AORJIGW7814-91-71 21:17:0080[facility]annCARDIAC ENZYMES 2013-12-22 21:17:00<0.5[facility]annCARDIAC AHHJNAY9452-78-02 21:17:00 <0.6[facility] HermannCHEM YIIBQ5056-23-46 21:17:37036Szchgved HermannCHEM TGJOX2580-56-08 21:17:003.6[facility] HermannCHEM KJJCX7702-27-64 21:17:0017 [facility]annCHEM XUFPZ1191-38-83 21:17:001.1[facility] HermannCHEM PANEL 2013-12-22 21:17:91119Lkwvrhna HermannCHEM XOEDH9197-89-58 21:17:0034[facility] HermannCHEM CXKFS9873-87-18 21:17:003.9[facility] HermannCHEM BMTIY8127-48-63 21:17:0089[facility] HermannCHEM LXOHL6958-89-03 21:17:0022[facility] HermannCHEM KBJCV9014-60-75 21:17:000.6[facility] HermannCHEM YNUSQ9422-48-13 21:17:005.5 [facility]annCHEM NATTD4978-68-95 21:17:000.6[facility] HermannCHEM PANEL 2013-12-22 21:17:0010[facility] HermannCHEM WICUO7404-11-00 21:17:003.5[facility] HermannCHEM SIEBZ2399-33-73 21:17:53938Uluvxioj HermannCHEM EAIOF8670-98-17 21:17:75683Jqgttmsg HermannCHEM FJCVW9324-24-69 21:17:0029[facility] HermannCHEM JLXTK1394-55-81 21:17:007.5[facility] HermannCHEM ESKQQ3879-59-81 21:17:009.2 [facility]annDRUG ECLUGZ3185-55-33 21:17:00Negative *NA*(12/22/13 4:17 PM) [facility]annDR[facility] MBFQRU6863-31-67 21:17:00Negative *NA*(12/22/13 4:17 PM) [facility]DR[facility] ANFLLJ6165-97-93 21:17:00See Note 4*NA*(12/22/13 4:17 PM) [facility]annDR[facility] DMUUPK3225-93-71 21:17:00Negative *NA*(12/22/13 4:17 PM) [facility]DR[facility] YCIFWG2449-29-03 21:17:00Negative *NA*(12/22/13 4:17 PM) [facility]DR[facility] ENMGLV9671-23-82 21:17:00Negative *NA*(12/22/13 4:17 PM) [facility]DR[facility] TSPQYA1210-08-22 21:17:00Negative *NA*(12/22/13 4:17 PM) [facility]annDR[facility] JCTQMJ7377-95-62 21:17:00Negative *NA*(12/22/13 4:17 PM) [facility] LttktwuTEOLUFWXAB7394-60-33 21:17:00 Test Item Value Reference Range Interpretation Comments PTT (test code = PTT) 35.2 s 22.9-35.8 [facility] HimiqgeKOEUCACVXJ2783-21-94 21:17:00 Test Item Value Reference Range Interpretation Comments PT (test code = PT) 12.2 s 12.0-14.7 [facility] IhfzebmHJLNMQUBOC0277-51-09 21:17:000.91[facility] HermannHEMATOLOGY 2013-12-22 21:17:008.4[facility] FobqosrYMLLJSKOFQ4945-86-88 21:17:00 Test Item Value Reference Range Interpretation Comments MCH (test code = MCH) 29.2 pg 27.0-31.0 [facility] QfwdbzpVAVWEMANRU0345-51-71 21:17:0033.4[facility] HermannHEMATOLOGY 2013-12-22 21:17:0014.5[facility] WpotvyeZTDZIUKXVW0538-25-95 21:17:10359Wtyezdyc YzplkusDTQIILTZZP7771-60-32 21:17:0041.6[facility] TmedkcuOWLVCRSPGN6685-98-45 21:17:0087.5[facility] WrexwklXQBGIYXHWU0854-84-60 21:17:004.76[facility] ZRFMQFMIBJ5465-41-60 21:17:0013.9[facility] SpcdsbjULSXFHVGJQ8644-24-54 21:17:00 8.5[facility] MjthlapOFTGYVMPXM9801-18-97 21:17:000.2[facility] HermannHEMATOLOGY 2013-12-22 21:17:000.0[facility] StxvptdXVLHLURZTF1737-38-32 21:17:0066.1[facility] ZgcmecaNJWBEINAUD9380-22-81 21:17:006.1[facility] PapkyaqXKOEIDFIZU7863-98-26 21:17:0025.0[facility] TxcwttvTCAIPCWNZU4127-59-59 21:17:002.4[facility] XSZEIIEVKQ8124-90-29 21:17:000.4[facility] UirpttsYNKAWMQQEK8852-58-83 21:17:002.1 [facility] GpxhdhxJAJYZPUQRQ7823-68-33 21:17:000.5[facility] HermannHEMATOLOGY 2013-12-22 21:17:005.6[facility]annURINE AND AOJWM1118-15-53 21:17:00Trace *ABN*(12/22/13 4:17 PM)[facility] MUSGA5027-46-03 21:17:00Negative *NA*(12/22/13 4:17 PM)[facility] DWMLO3782-10-03 21:17:000.2 [facility] AND JCGBB9750-05-20 21:17:00Small *ABN*(12/22/13 4:17 PM) [facility] UQFZU2122-73-87 21:17:00Negative *NA*(12/22/13 4:17 PM) [facility] QCWMJ8811-62-78 21:17:00Negative (12/22/13 4:17 PM) [facility] MJDSL1873-43-68 21:17:00Clear (12/22/13 4:17 PM) [facility] SOZMF3821-54-57 21:17:00Yellow *NA*(12/22/13 4:17 PM) [facility] ETGBU7990-21-12 21:17:00 Test Item Value Reference Range Interpretation Comments UA pH (test code = UA pH) 6.0 1 5.0-8.0 [facility] DNHUJ6725-14-09 21:17:00 Test Item Value Reference Range Interpretation Comments UA Spec Grav (test code = UA Spec 1.015 1 Grav) [facility] ULCBI1191-85-39 21:17:00Negative (12/22/13 4:17 PM) [facility] LVUGU1190-62-73 21:17:00Negative (12/22/13 4:17 PM) [facility]annCHEM XBGGI0851-02-49 15:55:312.7[facility] HermannCHEM PANEL 2013-12-17 15:55:312.2[facility] OqnsubgUAVLKTRUNZYH9321-82-06 15:55:3110.5 [facility] JxbcrrgCWHBMZLCJZAR8437-19-30 15:55:3191[facility] HermannELECTROLYTES 2013-12-17 15:55:3110[facility] OethhgnCGQWBPMBOXJV6951-92-48 15:55:310.8[facility] ZwsblalTAGNBLNLNCPD3273-10-88 15:55:60861Tkwwzkzp YhngymxYUAMJTOVIJBU5686-50-33 15:55:3187[facility] XiamjphMGOTFPKJSXZO7263-01-01 15:55:3130[facility] IPVUVERXFNAL9246-97-12 15:55:314.5[facility] XhdirddOMTOJJLIQDBY7939-42-72 15:55:76827Wovssbwe KpvtrhqBNSNGWQBEGUM9935-64-81 15:55:318.6[facility] WIPETABKNH9803-14-31 15:55:310.97[facility] FderpouPISCYMKCTQ7276-50-67 15:55:31 Test Item Value Reference Range Interpretation Comments PTT (test code = PTT) 32.4 s 22.9-35.8 [facility] MbwvmjkOLULLCABHE2511-87-84 15:55:31 Test Item Value Reference Range Interpretation Comments PT (test code = PT) 12.8 s 12.0-14.7 [facility] NbtbseqMRDBXHZXZS6837-08-38 15:55:3113.7[facility] HermannHEMATOLOGY 2013-12-17 15:55:314.88[facility] FyukjhaMTZUHRPWMU7323-45-11 15:55:31 Test Item Value Reference Range Interpretation Comments MCH (test code = MCH) 28.1 pg 27.0-31.0 [facility] OtagwwoMYAAFXLDJX1566-23-57 15:55:3142.1[facility] HermannHEMATOLOGY 2013-12-17 15:55:3186.4[facility] HsubljxBDTRHFTJMB0556-11-65 15:55:3114.3[facility] HptkrpsZQVDEFRIMN2400-53-26 15:55:3132.5[facility] BmteuyfUDVBFECNTC9338-71-80 15:55:318.4[facility] AwlpgydUQVMVVIEHE2753-21-23 15:55:86131Ljuzjykr Dexter OHTTQSVIGR7714-53-63 15:55:317.2[facility] DvohrtaSNVSVUNBIY2569-99-35 15:55:31 10.7[facility] LvqneqoGJWDIPFNXU4355-73-47 15:55:3127.2[facility] HermannHEMATOLOGY 2013-12-17 15:55:311.9[facility] XbvakmnUMZEEPVEET0484-26-51 15:55:313.2[facility] ZfczgfhHBEUBFNTSQ0465-78-07 15:55:310.6[facility] ZnrkbxyAKWOGSZZGX2671-23-05 15:55:314.2[facility] EoecrqtZXVHKKJBAX8444-04-59 15:55:310.2[facility] AKZVRSSORF7233-01-82 15:55:310.8[facility] ClxmqjfLOJLONZQBJ7324-21-89 15:55:31 58.3[facility] HermannPARATHYROID YJDGDGH0012-50-83 15:55:191.11[facility] PARATHYROID OTSKUDA4780-70-41 15:55:191.17[facility]annDRUG EHPGMQ8383-95-90 03:45:57Negative *NA*(12/16/13 10:45 PM)[facility] ZPKVER2929-15-16 03:45:57Positive *ABN*(12/16/13 10:45 PM)[facility] PKTBVZ7669-09-75 03:45:57Negative *NA*(12/16/13 10:45 PM)[facility] XSASKX0258-23-74 03:45:57Negative *NA*(12/16/13 10:45 PM)[facility] SOIAGC7808-61-81 03:45:57Negative *NA*(12/16/13 10:45 PM)[facility] WUMUUB2859-03-48 03:45:57See Note 6(12/16/13 10:45 PM)[facility] KALMCB5328-34-18 03:45:57Negative *NA*(12/16/13 10:45 PM)[facility] NYFPJV8610-05-99 03:45:57Negative *NA*(12/16/13 10:45 PM)[facility]annCARDIAC EPZSIPZ2882-09-85 03:45:0056[facility]annCARDIAC MXEOZKF4531-75-13 03:45:00<0.010[facility]annCARDIAC UTFZDQN1334-66-83 03:45:00<0.02[facility]annCARDIAC ENZYMES 2013-12-17 03:45:0013[facility] GrhwwugPJTIJE5364-33-80 03:45:0018[facility] NEPFYB8679-18-87 03:45:0088[facility] RjzhtxmNWPKUB0629-59-94 03:45:0088[facility] YuhvrblAYCPUV0837-60-46 03:45:003.08[facility] PncpdddNTUXCK5907-78-99 03:45:94008 [facility] BdgysxmTHMUMF5061-50-53 03:45:0051[facility]annSPECIAL CHEMISTRY 2013-12-17 03:45:005.3[facility] HermannTHYROID RRCHF5174-00-62 03:45:000.870 [facility]annCARDIAC NQZEANS2907-30-73 22:09:0042[facility]annCARDIAC ZYFCIXU8902-63-05 22:09:00<0.02[facility]annCHEM VVTTK6022-97-21 19:30:00 1.3[facility] WqldubhQUKUBGILNV0770-05-59 19:30:00 Test Item Value Reference Range Interpretation Comments PT (test code = PT) 11.8 s 12.0-14.7 [facility] NsjnedzPBJBRAVVPO4134-39-37 19:30:000.87[facility]annHEMATOLOGY 2013-12-16 19:30:00 Test Item Value Reference Range Interpretation Comments PTT (test code = PTT) 31.2 s 22.9-35.8 [facility] BwjykmuCCOHBMOJLZ4031-92-73 19:30:004.69[facility]annHEMATOLOGY 2013-12-16 19:30:006.6[facility] HtjvfkaXEAULCTWNY0907-32-18 19:30:0040.5[facility] JqyzsugTLVNVXKYGE0381-03-56 19:30:0086.4[facility] KoyitkcBQQSJJRTTQ6850-39-00 19:30:0013.6[facility] SwnhbzzJZQPRHAIWT7310-50-42 19:30:00 Test Item Value Reference Range Interpretation Comments MCH (test code = MCH) 29.0 pg 27.0-31.0 [facility] BznvhtlRIOQWSPPYG2138-13-06 19:30:0033.6[facility]annHEMATOLOGY 2013-12-16 19:30:03823Yuamnpyp DeezrurMKRORTSNHM3606-50-30 19:30:0013.4[facility] RnjqivoAKOIAJSLVT7917-15-00 19:30:008.6[facility] CpeefowDIRDUNMUQG5146-01-60 19:30:000.8[facility] NcslotzTQUTEXMIOQ3000-64-37 19:30:000.0[facility] WTVOMFMRQS8280-66-75 19:30:0012.1[facility] VigpojaFHVXQPGRUZ1519-32-90 19:30:00 3.8[facility] OfvxhhxZDZJHXZTKP8371-95-97 19:30:000.6[facility]annHEMATOLOGY 2013-12-16 19:30:003.9[facility] XfjezkiFMSWHBDWDT3810-35-47 19:30:000.3[facility] ZrmergqNZZRZRNYRP7670-91-79 19:30:001.6[facility] CexibayRYOCVPJFER9283-28-84 19:30:0025.0[facility] IhvixeaIUOOWVGRVU3735-28-00 19:30:0058.5[facility] CHEM TYGET9348-49-71 17:43:2479[facility] HermannCHEM TELFS8847-66-42 17:43:240.9 [facility]annCHEM QWKMC0226-42-73 17:43:93525Dcfnwsrp HermannCHEM PANEL 2013-12-16 17:43:244.5[facility] HermannCHEM QCCSR4846-08-75 17:43:45750Frzcnvvd HermannCHEM YNWLU2266-47-25 17:43:2478[facility] HermannCHEM BLGCG0535-74-77 17:43:2411[facility]annCHEM ZCXHF3321-06-46 17:43:241.0[facility]annCHEM CIXSR7172-13-75 17:43:2412[facility]annCHEM ZUVDU9554-72-59 17:43:243.6 [facility]annCHEM OWXMA8275-64-23 17:43:2416.5[facility]annCHEM PANEL 2013-12-16 17:43:247.2[facility] HermannCHEM RRUHY9703-27-01 17:43:2419[facility]annCHEM TUORB4303-99-12 17:43:2423[facility] HermannCHEM PELMD3160-98-77 17:43:249.2[facility] HermannCHEM HQEUT1274-14-13 17:43:240.3[facility] HermannCHEM QYWGY0278-79-03 17:43:243.6[facility]annCHEM SQFDH9083-23-93 17:43:2487 [facility]annCHEM FZCOM1350-67-10 17:43:2431[facility]annCARDIAC ENZYMES 2013-12-16 17:43:0056[facility]annCARDIAC RRCPNOL9484-02-88 17:43:00<0.02 [facility]annCARDIAC UESJMBI7394-91-86 19:12:00<0.02[facility] CARDIAC SFMJFDJ1612-41-99 19:12:0049[facility]annCARDIAC ETEYYZJ1104-32-47 19:12:00<0.010[facility] XwtghueFBOGYGQPG3667-37-83 19:12:0036[facility] CARDIAC UESRNDG3066-37-44 12:35:00<0.010[facility]annCARDIAC ENZYMES 2013-11-08 12:35:0054[facility]annCARDIAC VRMJTXD1315-41-10 12:35:00<0.02 [facility]annCARDIAC ZWXEKFE7882-93-06 08:36:00<0.02[facility] FQXWLWGWCVEP4067-09-60 08:36:0011.4[facility] UexypbhSEKKWCFWHVNC9559-35-94 08:36:0069[facility] KuaeaviGUTNSVYKEKTD2401-15-01 08:36:009.2[facility] KPFUKPQAGZSZ7125-64-94 08:36:0027[facility] ElunlfbGLGWLFCTOLYT4566-79-11 08:36:00 105[facility] BxpkkhkJCYJHJMTQIYJ4361-30-41 08:36:003.4[facility] WSNVWDKOVUAV0596-09-16 08:36:13189Ffukmrhf WitwnkjYOUFRHTTSSRJ5461-04-23 08:36:0011[facility] JkigjomXLUWBRYXTYBD6105-68-39 08:36:0084[facility] OGDFGCMRRIJX7074-22-88 08:36:001.0[facility] UupsejzFDJZINAPFY4588-64-00 08:36:00 0.1[facility] KhhxqguTEJRTQPOZV6859-20-66 08:36:000.2[facility]annHEMATOLOGY 2013-11-08 08:36:000.8[facility] JzmudsgHFJKIYIORH3456-86-98 08:36:0072.5[facility] XbfrumsZLNBPPOAEM5536-70-29 08:36:0017.0[facility] ShiqdmrQMQVWRGBWQ0266-12-83 08:36:002.1[facility] ZrqrybsGZNVMXWCBP2940-44-00 08:36:007.8[facility] PFWKBHLGUM0154-37-62 08:36:007.6[facility] YpvoxddLDTYFRYVDJ3223-80-30 08:36:000.6 [facility] JqfhptxGDFSJKJUGU9070-00-26 08:36:001.8[facility]annHEMATOLOGY 2013-11-08 08:36:008.7[facility] RltpbzcADEGENUFCH9649-44-50 08:36:0014.0[facility] NvmdoocPQYBJJOQCI4362-62-99 08:36:62066Njsmxlgb GubydczRVOBRQLRKU7004-22-25 08:36:0033.9[facility] KmehlijZWNJBHUAKK9306-80-21 08:36:004.65[facility] VRTSTXCPDC8410-87-92 08:36:0010.6[facility] RlaazouMEEYOMESHS5930-93-39 08:36:00 Test Item Value Reference Range Interpretation Comments MCH (test code = MCH) 29.3 pg 27.0-31.0 [facility] VukwqtnQASWMFONVK8411-68-79 08:36:0086.6[facility]annHEMATOLOGY 2013-11-08 08:36:0013.6[facility] UwcxtjgMDQDEEJYCG1547-58-40 08:36:0040.2[facility]
--- NOTE | 2021-07-31 15:50 | RAD REPORT ---
EXAM DESCRIPTION: RAD - Chest Single View - 07/31/2021 3:29 pm CLINICAL HISTORY: CHEST PAIN COMPARISON: April 07 TECHNIQUE: AP portable chest image was obtained 07/31/2021 3:29 pm . FINDINGS: No peripheral mass or consolidation. Chronic interstitial pattern is present accentuated b y a more shallow inspiratory effort. Early edema or infiltrate can be masked. No significant failure or volume overload. Heart and vasculature are normal. No measurable pleural effusion and no pneumothorax. No acute bony abnormality seen. No acute aortic findings suspected. IMPRESSION: No acute cardiopulmonary process. Chronic disease can mask early edema or infiltrate.
[2021-07-31 16:36] LABS: Absolute Lymphocytes (CBC) 2.2 K/uL (0.7-4.9); Basophils % 0.9 % (0-1.3); Hematocrit 43.5 % (36.0-45.0); Lymphocytes % 38.5 % (15.3-44.8); MPV 7.9 fL (7.6-11.3); RBC Red Blood Cell Count 4.98 M/uL (3.86-4.86)
[2021-07-31 16:44] LABS: Urine Blood Negative (Negative); Urine Glucose Negative (Negative); Urine Protein Negative (Negative); Urine pH 5.5 (5.0-7.0)
[2021-07-31 16:45] LABS: Protime INR 0.99
[2021-07-31 16:56] LABS: ALT/SGPT 19 U/L (12-78); AST/SGOT 16 U/L (15-37); Albumin 3.7 g/dL (3.4-5.0); Alkaline Phosphatase 94 U/L (45-117); BUN Blood Urea Nitrogen 8 mg/dL (7-18); Bicarbonate 24 mmol/L (21-32); Bilirubin Direct 0.1 mg/dL (0-0.2); Bilirubin Total 0.6 mg/dL (0.2-1.0); Glucose Level 70 mg/dL (74-106); Magnesium 2.4 mg/dL (1.8-2.4); NT PRO-BNP 14 pg/mL (<125); Potassium 3.6 mmol/L (3.5-5.1); Protein, Total 7.5 g/dL (6.4-8.2); Sodium Level 143 mmol/L (136-145); Troponin (Emerg Dept Use Only) < 0.02 ng/mL (0.0-0.045)
[2021-07-31] MEDS ORDERED: ONDANSETRON 4 MG/2 ML VIAL ONE (17:06)
[2021-07-31] MEDS ORDERED: METHYLPREDNISOLONE 40 MG INJ ONE (17:06)
[2021-07-31] MEDS ORDERED: ALBUTEROL 2.5 MG/3 ML NEB SOL ONE (17:06)
[2021-07-31] MEDS ORDERED: FAMOTIDINE 20 MG/2 ML VIAL IV ONE (17:06)
[2021-07-31] MEDS ORDERED: IPRATROPIUM BROM 0.5MG/2.5ML ONE (17:06)
[2021-07-31 17:39] LABS: Urine Bacteria <20 /HPF (<20); Urine RBC <5 /HPF (NONE SEEN)
[2021-07-31 20:41] LABS: RBC Red Blood Cell Count 4.96 M/uL (3.86-4.86)
--- NOTE | 2021-07-31 21:33 | ER ---
Nurse's Notes [facility] Name: Winsome Yepez Age: 71 yrs Sex: Female : 1950 Arrival Date: 07/31/2021 Time: 15:12 Bed 6 Private MD: Diagnosis: Chest pain, unspecified Presentation: 07/31 15:15 Chief complaint: Chief complaint: EMS states: has been unable to obtain her home meds iw for a while, has had diff breathing , epigastric pain X 2 weeks. Coronavirus screen: Client presents with at least one sign or symptom that may indicate coronavirus-19. Ebola Screen: Patient negative for fever greater than or equal to 101.5 degrees Fahrenheit, and additional compatible Ebola Virus Disease symptoms Patient denies exposure to infectious person. Patient denies travel to an Ebola-affected area in the 21 days before illness onset. No symptoms or risks identified at this time. Initial Sepsis Screen: Does the patient meet any 2 criteria? No. Patient's initial sepsis screen is negative. Does the patient have a suspected source of infection? No. Patient's initial sepsis screen is negative. Risk Assessment: Do you want to hurt yourself or someone else? Patient reports no desire to harm self or others. Onset of symptoms was July 18, 2021. 15:15 Method Of Arrival: EMS: [facility] iw 15:15 Acuity: CYNTHIA 3 iw Triage Assessment: 22:20 General: Appears in no apparent distress. Behavior is calm, cooperative. Pain: Denies cc4 pain. Cardiovascular: Rhythm is sinus rhythm. Historical: - Allergies: 15:17 PENICILLINS; iw - PMHx: 15:17 Asthma; High Cholesterol; Hypertension; Myocardial infarction; Sickle Cell; iw - PSHx: 15:17 back sx; iw - Immunization history:: Adult Immunizations up to date. - Social history:: Smoking status: Patient/guardian denies using alcohol, street drugs, tobacco products. Screenin:57 Abuse screen: Denies threats or abuse. Denies injuries from another. Nutritional iw screening: No deficits noted. Tuberculosis screening: No symptoms or risk factors identified. Fall Risk Fall in past 12 months (25 points). IV access (20 points). Assessment: 16:56 Reassessment: Patient appears in no apparent distress at this time. Patient and/or iw family updated on plan of care and expected duration. Pain level reassessed. Patient is alert, oriented x 3, equal unlabored respirations, skin warm/dry/pink. pt moved to ER bed 6. 22:20 Pain: Pain does not radiate. cc4 08/01 01:01 Pain: Pain began. cc4 Vital Signs: 07/31 15:25 BP 122 / 65; Pulse 84; Resp 16; Temp 97.7(O); Pulse Ox 98% on 2 lpm NC; Weight 49.9 kg; dh4 Height 5 ft. 0 in. (152.40 cm) (R); 16:45 BP 97 / 75; Pulse 99; Resp 19; Pulse Ox 100% on 2 lpm NC; tw2 17:52 BP 91 / 68; Pulse 88; Resp 18; Pulse Ox 99% on Nebulizer Mask; tw2 19:24 BP 115 / 65; Pulse 96; Resp 18; Pulse Ox 98% on R/A; cc4 20:00 BP 136 / 78; Pulse 98; Resp 20 S; Pulse Ox 98% on R/A; cc4 21:53 BP 129 / 78; Pulse 98; Resp 18; Temp 98.7(O); Pulse Ox 95% on R/A; lt3 22:20 BP 113 / 70; Pulse 100; Resp 20 S; Temp 98.7(O); Pulse Ox 96% on R/A; cc4 15:25 Body Mass Index 21.48 (49.90 kg, 152.40 cm) [facility] ED Course: 15:12 Patient arrived in ED. kc5 15:17 Triage completed. iw 15:18 Sandi Cooper RN is Primary Nurse. iw 15:29 XRAY Chest (1 view) In Process Unspecified. EDMS 15:31 Mark Campoverde PA is PHCP. cp 15:31 Julio Garcia MD is Attending Physician. cp 15:45 Maintain EMS IV. Dressing intact. Good blood return noted. Site clean \T\ dry. Gauge \T\ iw site: 20 LAC. 16:57 Patient has correct armband on for positive identification. 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 Pulse iw ox on. 17:00 Primary Nurse role handed off by Sandi Cooper, AZAM tw2 17:00 Opal Vaz RN is Primary Nurse. tw2 19:53 Primary Nurse role handed off by Opal Vaz RN mw2 22:19 Lou Henderson, RN is Primary Nurse. cc4 22:20 No provider procedures requiring assistance completed. cc4 22:20 Patient maintains SpO2 saturation greater than 95% on room air. cc4 22:20 IV discontinued, intact, bleeding controlled, No redness/swelling at site. Pressure cc4 dressing applied, x 2. 22:20 Arm band placed on right wrist. cc4 22:32 Retic Count Sent. cc4 Administered Medications: 17:15 Drug: Zofran (Ondansetron) 4 mg Route: IVP; Site: left antecubital; tw2 22:20 Follow up: Response: No adverse reaction; Nausea is decreased cc4 17:18 Drug: Pepcid (famotidine) 20 mg Route: IVP; Site: left antecubital; tw2 22:20 Follow up: Response: No adverse reaction; Pain is decreased cc4 17:21 Drug: SOLU-Medrol (methylPrednisoLONE) 80 mg Route: IVP; Site: left antecubital; tw2 22:20 Follow up: Response: No adverse reaction; Marked relief of symptoms cc4 17:23 Drug: Albuterol - atroVENT (ipratropium) (3:1) (2.5 mg - 0.5 mg) 3 ml Route: Nebulizer; tw2 22:20 Follow up: Response: No adverse reaction; Marked relief of symptoms cc4 Outcome: 21:32 Discharge ordered by MD. cp 22:20 Discharged to home via wheelchair. cc4 22:20 Condition: improved 22:20 Discharge instructions given to patient, Instructed on discharge instructions, follow up and referral plans. Demonstrated understanding of instructions, follow-up care. 22:40 Patient left the ED. cc4 Signatures: Dispatcher [employer] EDMS Sandi Cooper RN RN Mark Zhang PA PA cp Wise, Tara, RN RN tw2 Sabas Santana mw2 Cristino Merlos 4 Lou Henderson, RN RN cc4 Morelia Burrows 5 Nivia Figueredo lt3 Corrections: (The following items were deleted from the chart) 08/01 00:59 1203 22:20 EKG done per protocol. Performed by ED Staff. cc4 cc4
--- NOTE | 2021-07-31 21:33 | EDPHYS ---
Physician Documentation [facility] Name: Winsome Yepez Age: 71 yrs Sex: Female : 1950 Arrival Date: 07/31/2021 Time: 15:12 Bed 6 Private MD: ED Physician Julio Garcia HPI: 07/31 15:30 This 71 yrs old Black Female presents to ER via EMS with complaints of Chest Pain, cp Breathing Difficulty. 15:30 The patient has shortness of breath at rest. cp 15:30 Onset: The symptoms/episode began/occurred today. Duration: The symptoms are cp continuous. Associated signs and symptoms: Pertinent positives: chest pain, Pertinent negatives: productive cough, dizziness, fever, vomiting. Severity of symptoms: in the emergency department the symptoms are unchanged despite EMS interventions. Historical: - Allergies: 15:17 PENICILLINS; iw - PMHx: 15:17 Asthma; High Cholesterol; Hypertension; Myocardial infarction; Sickle Cell; iw - PSHx: 15:17 back sx; iw - Immunization history:: Adult Immunizations up to date. - Social history:: Smoking status: Patient/guardian denies using alcohol, street drugs, tobacco products. ROS: 15:35 Constitutional: Negative for body aches, chills, fever, poor PO intake. cp 15:35 Eyes: Negative for injury, pain, redness, and discharge. cp 15:35 ENT: Negative for drainage from ear(s), ear pain, sore throat, difficulty swallowing, difficulty handling secretions. 15:35 Cardiovascular: Positive for chest pain, Negative for edema, palpitations. 15:35 Respiratory: Positive for cough, shortness of breath, at rest. 15:35 Abdomen/GI: Negative for abdominal pain, nausea, vomiting, and diarrhea. 15:35 Neuro: Negative for altered mental status, weakness. 15:35 All other systems are negative. Exam: 15:40 Constitutional: The patient appears in no acute distress, alert, awake, cp non-diaphoretic, non-toxic, well developed, well nourished. 15:40 Head/Face: Normocephalic, atraumatic. cp 15:40 Eyes: Periorbital structures: appear normal, Conjunctiva: normal, no exudate, no injection, Sclera: no appreciated abnormality, Lids and lashes: appear normal, bilaterally. 15:40 ENT: External ear(s): are unremarkable, Nose: is normal, Mouth: Lips: moist, Oral mucosa: pink and intact, moist, Posterior pharynx: Airway: no evidence of obstruction, patent. 15:40 Neck: ROM/movement: is normal, is supple, without pain, no range of motions limitations, no nuchal rigidity. 15:40 Chest/axilla: Inspection: normal. 15:40 Cardiovascular: Rate: normal, Rhythm: regular, Edema: is not appreciated, JVD: is not appreciated. 15:40 Respiratory: the patient does not display signs of respiratory distress, Respirations: normal, no use of accessory muscles, no retractions, labored breathing, that is mild, Breath sounds: bronchial sounds, that are mild, are heard diffusely, decreased breath sounds, are not appreciated, stridor, is not appreciated, wheezing: is not appreciated. 15:40 Abdomen/GI: Inspection: abdomen appears normal, Bowel sounds: active, all quadrants, Palpation: abdomen is soft and non-tender, in all quadrants. 15:40 Back: pain, is absent, ROM is normal. 15:40 Skin: cellulitis, no rash present. 15:40 Neuro: Orientation: to person, place \T\ time. Mentation: is normal, Motor: moves all fours, strength is normal, Sensation: no obvious gross deficits. 16:10 ECG was reviewed by the Attending Physician. cp Vital Signs: 15:25 BP 122 / 65; Pulse 84; Resp 16; Temp 97.7(O); Pulse Ox 98% on 2 lpm NC; Weight 49.9 kg; dh4 Height 5 ft. 0 in. (152.40 cm) (R); 16:45 BP 97 / 75; Pulse 99; Resp 19; Pulse Ox 100% on 2 lpm NC; tw2 17:52 BP 91 / 68; Pulse 88; Resp 18; Pulse Ox 99% on Nebulizer Mask; tw2 19:24 BP 115 / 65; Pulse 96; Resp 18; Pulse Ox 98% on R/A; cc4 20:00 BP 136 / 78; Pulse 98; Resp 20 S; Pulse Ox 98% on R/A; cc4 21:53 BP 129 / 78; Pulse 98; Resp 18; Temp 98.7(O); Pulse Ox 95% on R/A; lt3 22:20 BP 113 / 70; Pulse 100; Resp 20 S; Temp 98.7(O); Pulse Ox 96% on R/A; cc4 15:25 Body Mass Index 21.48 (49.90 kg, 152.40 cm) dh4 MDM: 15:30 Differential diagnosis: CHF exacerbation, Myocardial Infarction pneumonia, Pneumothorax cp pulmonary edema, Pulmonary Embolism Sepsis Unstable Angina. 15:41 Patient medically screened. cp 21:17 Data reviewed: vital signs, nurses notes, lab test result(s), EKG, radiologic studies, cp plain films. Test interpretation: by ED physician or midlevel provider: ECG, plain radiologic studies. Counseling: I had a detailed discussion with the patient and/or guardian regarding: the historical points, exam findings, and any diagnostic results supporting the discharge/admit diagnosis, lab results, radiology results, to return to the emergency department if symptoms worsen or persist or if there are any questions or concerns that arise at home. Response to treatment: the patient's symptoms have markedly improved after treatment, VSS. Patient sleeping in exam room, and as a result, I will discharge patient. 07/31 15:20 Order name: Basic Metabolic Panel; Complete Time: 16:57 07/31 16:57 Interpretation: Normal except: CL 112; GLUC 70. 07/31 15:20 Order name: CBC with Diff; Complete Time: 17:06 07/31 17:06 Interpretation: Normal except: RBC 4.98. 07/31 15:20 Order name: LFT's; Complete Time: 16:57 07/31 15:20 Order name: Magnesium; Complete Time: 16:57 07/31 15:20 Order name: NT PRO-BNP; Complete Time: 16:57 07/31 15:20 Order name: PT-INR; Complete Time: 16:57 07/31 15:20 Order name: Troponin (emerg Dept Use Only); Complete Time: 16:57 07/31 15:41 Order name: Urine Microscopic Only; Complete Time: 19:04 07/31 16:43 Order name: Urine Dipstick-Ancillary; Complete Time: 16:57 EDHI 07/31 17:49 Order name: SARS-COV-2 RT PCR; Complete Time: 19:04 EDHI 07/31 19:04 Order name: Troponin (emerg Dept Use Only); Complete Time: 21:15 cp 07/31 19:05 Order name: Retic Count cp 07/31 19:05 Order name: Retic Count; Complete Time: 21:15 EDMS 07/31 21:15 Interpretation: RBC 4.96; Reviewed. 07/31 15:20 Order name: XRAY Chest (1 view); Complete Time: 16:57 iw 07/31 16:57 Interpretation: Report review. 07/31 15:20 Order name: EKG; Complete Time: 15:21 iw 07/31 15:20 Order name: EKG - Nurse/Tech; Complete Time: 16:16 iw 07/31 15:20 Order name: IV Saline Lock; Complete Time: 16:16 iw 07/31 15:20 Order name: Labs collected and sent; Complete Time: 16:16 07/31 15:20 Order name: O2 Per Protocol; Complete Time: 16:16 iw 07/31 15:20 Order name: O2 Sat Monitoring; Complete Time: 16:16 iw 07/31 15:41 Order name: Urine Dipstick-Ancillary (obtain specimen); Complete Time: 16:45 07/31 16:16 Order name: Diet Heart Healthy; Complete Time: 16:16 iw EC:10 Rate is 77 beats/min. Rhythm is regular. SC interval is normal. QRS interval is normal. cp QT interval is normal. T waves are Inverted in lead aVR. Interpreted by me. Reviewed by me. Administered Medications: 17:15 Drug: Zofran (Ondansetron) 4 mg Route: IVP; Site: left antecubital; tw2 22:20 Follow up: Response: No adverse reaction; Nausea is decreased cc4 17:18 Drug: Pepcid (famotidine) 20 mg Route: IVP; Site: left antecubital; tw2 22:20 Follow up: Response: No adverse reaction; Pain is decreased cc4 17:21 Drug: SOLU-Medrol (methylPrednisoLONE) 80 mg Route: IVP; Site: left antecubital; tw2 22:20 Follow up: Response: No adverse reaction; Marked relief of symptoms cc4 17:23 Drug: Albuterol - atroVENT (ipratropium) (3:1) (2.5 mg - 0.5 mg) 3 ml Route: Nebulizer; tw2 22:20 Follow up: Response: No adverse reaction; Marked relief of symptoms cc4 Disposition: 08/01 18:01 Co-signature as Attending Physician, Julio Garcia MD I agree with the assessment and rn plan of care. Attestation: The patient's history, exam findings, diagnostics, and a summary of any interventions or procedures was reviewed in detail with Mark SHARMA. Disposition Summary: 07/31/21 21:32 Discharge Ordered Location: Home cp Problem: new cp Symptoms: have improved cp Condition: Stable cp Diagnosis - Chest pain, unspecified cp Followup: cp - With: Private Physician - When: 2 - 3 days - Reason: Recheck today's complaints Discharge Instructions: - Discharge Summary Sheet cp - Nonspecific Chest Pain, Adult cp - Aspirin and Your Heart cp Forms: - Medication Reconciliation Form cp - Thank You Letter cp - Antibiotic Education cp - Prescription Opioid Use cp Signatures: Dispatcher [employer] Sandi Talbert RN RN Julio Garcia MD MD rn Page, Corey, PA PA cp Katelyn Rangel RN RN tw2 Lou Henderson RN RN cc4 Corrections: (The following items were deleted from the chart) 07/31 16:16 15:20 Cardiac monitoring ordered. [facility] 17:49 15:41 CORONAVIRUS+MR.LAB.BRZ ordered. EDHI EDMS
[2021-07-31 22:53] VITALS: BP 129/78; TEMP 98.7; O2SAT 95
== END 2021-07-31 22:40 | disposition home or self-care (01) ==
LOC: ER 15:11
DX: R07.9 Chest pain, unspecified (principal); I10 Essential (primary) hypertension; I25.2 Old myocardial infarction; D57.1 Sickle-cell disease without crisis; Z88.0 Allergy status to penicillin; Z20.822 Contact with and (suspected) exposure to COVID-19
CPT/HCPCS: 93005; 85025; 80048; 36415; 83735; 85610; 85044; 80076; 84484 ×2; 83880; 71045; 94640; 96375; 96374; 99285; U0003; J2405; J2920; 81003; 81015

== ENCOUNTER 2021-08-03 20:21 | Emergency (ER) | payer OTHER ==
--- OUTSIDE RECORDS SUMMARY | 2021-08-03 20:36 | XMS REPORT | Continuity of Care Document ---
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 40.824 kg [facility] BMI 2020-10-15 07:57:00 17.58 kg/m2 [facility] Systolic blood 2020-10-15 10:45:00 114 mm[Hg] [facility] Diastolic blood 2020-10-15 10:45:00 80 mm[Hg] [facility] Heart rate 2020-10-15 10:45:00 76 /min [facility] Body temperature 2020-10-15 10:45:00 37.44 [facility] 2020-10-15 10:45:00 18 /min [facility] in 2020-10-15 10:45:00 95 /min [facility] Arterial blood by [facility] Pulse oximetry Branch Body height 2020-10-15 07:57:00 152.4 cm [facility] Body weight 2020-10-15 07:57:00 40.824 kg [facility] BMI 2020-10-15 07:57:00 17.58 kg/m2 [facility] Systolic (mm Hg) 2017-01-19 23:16:00 Eleazar rial [facility] Diastolic (mm Hg) 2017-01-19 23:16:00 [facility] Respitory Rate 2017-01-19 23:16:00 Memori al [place] Systolic (mm Hg) 2017-01-19 22:28:00 Eleazar rial [place] Diastolic (mm Hg) 2017-01-19 22:28:00 Mem o[facility] [place] Respitory Rate 2017-01-19 22:28:00 [facility] [place] Respitory Rate 2017-01-19 21:00:00 [facility] Systolic (mm Hg) 2017-01-19 20:00:00 Eleazar rial [place] Diastolic (mm Hg) 2017-01-19 20:00:00 [facility] [place] Weight 2017-01-19 17:23:00 [facility] [place] BMI Calculated 2017-01-19 17:23:00 [facility] [place] Height 2017-01-19 17:23:00 152.4 cm [facility] Temperature Oral (F) 2017-01-19 17:23:00 97.0 F [facility] [place] Heart Rate 2017-01-19 17:23:00 [facility] [place] Systolic (mm Hg) 2017-01-17 02:10:00 Eleazar rial [place] Diastolic (mm Hg) 2017-01-17 02:10:00 [facility] [place] Respitory Rate 2017-01-17 02:10:00 [facility] [place] Systolic (mm Hg) 2017-01-17 01:21:00 Eleazar rial [place] Diastolic (mm Hg) 2017-01-17 01:21:00 [facility] [place] Respitory Rate 2017-01-17 01:21:00 [facility] Temperature Oral (F) 2017-01-17 01:21:00 98.1 F [facility] [place] Systolic (mm Hg) 2017-01-17 00:28:00 Eleazar [facility] [place] Diastolic (mm Hg) 2017-01-17 00:28:00 [facility] [place] Respitory Rate 2017-01-17 00:28:00 [facility] Heart Rate 2017-01-16 23:24:00 [facility] [place] Temperature Oral (F) 2017-01-16 23:24:00 98 F [facility] Weight 2017-01-16 23:24:00 [facility] Heart Rate 2016-11-29 03:44:00 [facility] Systolic (mm Hg) 2016-11-29 03:44:00 Eleazar rial [place] Diastolic (mm Hg) 2016-11-29 03:44:00 [facility] [place] Respitory Rate 2016-11-29 03:44:00 [facility] [place] Temperature Oral (F) 2016-11-29 03:44:00 98.7 F [facility] Heart Rate 2016-11-29 03:24:00 [facility] Respitory Rate 2016-11-29 03:24:00 [facility] [place] Systolic (mm Hg) 2016-11-29 03:24:00 Eleazar rial [place] Diastolic (mm Hg) 2016-11-29 03:24:00 [facility] [place] Heart Rate 2016-11-29 02:51:00 [facility] [place] Respitory Rate 2016-11-29 02:51:00 [facility] [place] Systolic (mm Hg) 2016-11-29 02:51:00 Eleazar rial [place] Diastolic (mm Hg) 2016-11-29 02:51:00 [facility] [place] Weight 2016-11-29 00:21:00 [facility] BMI Calculated 2016-11-29 00:21:00 [facility] [place] Height 2016-11-29 00:21:00 152.4 cm [facility] [place] Temperature Oral (F) 2016-11-29 00:21:00 98.6 F [facility] Respitory Rate 2016-11-07 02:47:00 [facility] [place] Heart Rate 2016-11-07 02:47:00 [facility] Temperature Oral (F) 2016-11-07 02:47:00 98.2 F [facility] Systolic (mm Hg) 2016-11-07 02:47:00 Eleazar rial [place] Diastolic (mm Hg) 2016-11-07 02:47:00 Mem o[facility] [place] Heart Rate 2016-11-07 02:22:00 [facility] Respitory Rate 2016-11-07 02:22:00 [facility] [place] Systolic (mm Hg) 2016-11-07 02:22:00 Leeazar rial [place] Diastolic (mm Hg) 2016-11-07 02:22:00 [facility] [place] Weight 2016-11-06 23:37:00 [facility] Heart Rate 2016-11-06 23:37:00 [facility] Temperature Oral (F) 2016-11-06 23:37:00 98.3 F [facility] [place] Respitory Rate 2016-11-06 23:37:00 [facility] [place] Systolic (mm Hg) 2016-11-06 23:37:00 Eleazar rial [place] Diastolic (mm Hg) 2016-11-06 23:37:00 [facility] [place] Respitory Rate 2016-10-11 18:24:00 [facility] [place] Temperature Oral (F) 2016-10-11 18:24:00 97.9 F [facility] Systolic (mm Hg) 2016-10-11 18:24:00 Eleazar rial [place] Diastolic (mm Hg) 2016-10-11 18:24:00 [facility] Heart Rate 2016-10-11 18:24:00 [facility] [place] Heart Rate 2016-10-11 13:53:00 [facility] [place] Systolic (mm Hg) 2016-10-11 13:53:00 Eleazar rial [place] Diastolic (mm Hg) 2016-10-11 13:53:00 [facility] [place] Temperature Oral (F) 2016-10-11 13:53:00 98.1 F [facility] [place] Temperature Oral (F) 2016-10-11 10:16:00 99.0 F [facility] [place] Respitory Rate 2016-10-11 10:16:00 [facility] [place] Heart Rate 2016-10-11 10:16:00 [facility] [place] Systolic (mm Hg) 2016-10-11 10:16:00 Eleazar rial [place] Diastolic (mm Hg) 2016-10-11 10:16:00 [facility] [place] Weight 2016-10-11 06:46:00 [facility] BMI Calculated 2016-10-11 06:46:00 [facility] [place] Height 2016-10-11 06:46:00 152.4 cm [facility] [place] Respitory Rate 2016-10-11 06:39:00 [facility] [place] Height 2016-10-10 17:48:00 152.4 cm [facility] [place] BMI Calculated 2016-10-10 17:48:00 [facility] [place] Weight 2016-10-10 17:48:00 [facility] BMI Calculated 2016-09-15 04:26:00 [facility] [place] Weight 2016-09-15 04:26:00 [facility] Height 2016-09-15 04:26:00 152.4 cm [facility] Systolic (mm Hg) 2016-09-15 04:26:00 Eleazar rial [place] Diastolic (mm Hg) 2016-09-15 04:26:00 [facility] [place] Respitory Rate 2016-09-15 04:26:00 [facility] Heart Rate 2016-09-15 04:26:00 [facility] [place] Temperature Oral (F) 2016-09-15 04:26:00 98.5 F [facility] [place] Respitory Rate 2016-04-14 06:22:00 [facility] [place] Temperature Oral (F) 2016-04-14 06:22:00 98.7 F [facility] [place] Systolic (mm Hg) 2016-04-14 06:22:00 Eleazar rial [place] Diastolic (mm Hg) 2016-04-14 06:22:00 [facility] [place] Heart Rate 2016-04-14 06:22:00 [facility] BMI Calculated 2016-04-14 02:12:00 [facility] [place] Weight 2016-04-14 02:12:00 [facility] Temperature Oral (F) 2016-04-14 02:12:00 99.2 F [facility] [place] Height 2016-04-14 02:12:00 152.4 cm [facility] Respitory Rate 2016-04-14 02:12:00 [facility] [place] Systolic (mm Hg) 2016-04-14 02:12:00 Eleazar rial [place] Diastolic (mm Hg) 2016-04-14 02:12:00 [facility] [place] Heart Rate 2016-04-14 02:12:00 [facility] Temperature Oral (F) 2016-03-12 17:00:00 97.8 F [facility] [place] Heart Rate 2016-03-12 17:00:00 [facility] Respitory Rate 2016-03-12 17:00:00 [facility] [place] Systolic (mm Hg) 2016-03-12 17:00:00 Eleazar rial [place] Diastolic (mm Hg) 2016-03-12 17:00:00 [facility] [place] Respitory Rate 2016-03-12 12:54:00 [facility] [place] Systolic (mm Hg) 2016-03-12 12:30:00 Eleazar rial [place] Diastolic (mm Hg) 2016-03-12 12:30:00 [facility] [place] Respitory Rate 2016-03-12 12:30:00 [facility] Heart Rate 2016-03-12 12:30:00 [facility] Temperature Oral (F) 2016-03-12 12:30:00 98.2 F [facility] Temperature Oral (F) 2016-03-12 10:26:00 98.0 F [facility] [place] Heart Rate 2016-03-12 10:26:00 [facility] [place] Systolic (mm Hg) 2016-03-12 10:26:00 Eleazar rial [place] Diastolic (mm Hg) 2016-03-12 10:26:00 [facility] [place] Height 2016-03-11 19:45:00 152.4 cm [facility] [place] BMI Calculated 2016-03-11 19:45:00 [facility] [place] Weight 2016-03-11 19:45:00 [facility] Respitory Rate 2016-03-06 01:44:00 [facility] [place] Systolic (mm Hg) 2016-03-06 01:44:00 Eleazar rial [place] Diastolic (mm Hg) 2016-03-06 01:44:00 [facility] Heart Rate 2016-03-06 01:44:00 [facility] Temperature Oral (F) 2016-03-06 01:44:00 98.1 F [facility] [place] BMI Calculated 2016-03-05 21:55:00 [facility] [place] Weight 2016-03-05 21:55:00 [facility] Systolic (mm Hg) 2016-03-05 21:55:00 Eleazar rial [place] Diastolic (mm Hg) 2016-03-05 21:55:00 [facility] Heart Rate 2016-03-05 21:55:00 [facility] Height 2016-03-05 21:55:00 152.4 cm [facility] [place] Temperature Oral (F) 2016-03-05 21:55:00 98.3 F [facility] [place] Respitory Rate 2016-03-05 21:55:00 [facility] [place] Respitory Rate 2016-03-01 01:23:00 [facility] [place] Systolic (mm Hg) 2016-03-01 01:23:00 Eleazar rial [place] Diastolic (mm Hg) 2016-03-01 01:23:00 [facility] [place] Temperature Oral (F) 2016-03-01 01:23:00 98.2 F [facility] Heart Rate 2016-03-01 01:23:00 [facility] Respitory Rate 2016-02-29 23:25:00 [facility] [place] Temperature Oral (F) 2016-02-29 22:27:00 98.3 F [facility] Heart Rate 2016-02-29 22:27:00 [facility] Respitory Rate 2016-02-29 22:27:00 [facility] [place] Systolic (mm Hg) 2016-02-29 22:27:00 Eleazar rial [place] Diastolic (mm Hg) 2016-02-29 22:27:00 [facility] [place] Respitory Rate 2015-09-05 14:47:00 [facility] [place] Systolic (mm Hg) 2015-09-05 14:47:00 Eleazar rial [place] Diastolic (mm Hg) 2015-09-05 14:47:00 [facility] Heart Rate 2015-09-05 14:47:00 [facility] [place] Weight 2015-09-05 11:00:00 [facility] [place] Systolic (mm Hg) 2015-09-05 10:00:00 Eleazar rial [place] Diastolic (mm Hg) 2015-09-05 10:00:00 [facility] [place] Respitory Rate 2015-09-05 10:00:00 [facility] [place] Heart Rate 2015-09-05 10:00:00 [facility] Respitory Rate 2015-09-05 06:00:00 [facility] [place] Systolic (mm Hg) 2015-09-05 06:00:00 Eleazar rial [place] Diastolic (mm Hg) 2015-09-05 06:00:00 [facility] [place] Heart Rate 2015-09-05 06:00:00 [facility] [place] Weight 2015-09-04 11:00:00 [facility] [place] Weight 2015-09-04 09:15:00 [facility] [place] BMI Calculated 2015-09-04 09:15:00 [facility] [place] Height 2015-09-04 09:15:00 160.02 cm [facility] [place] Temperature Oral (F) 2015-09-04 09:06:00 98.3 F [facility] [place] Height 2015-09-04 03:35:00 152.4 cm [facility] [place] BMI Calculated 2015-09-04 03:35:00 [facility] [place] Temperature Oral (F) 2015-09-04 03:35:00 98.7 F [facility] [place] Systolic (mm Hg) 2015-07-16 13:56:00 Eleazar rial [place] Diastolic (mm Hg) 2015-07-16 13:56:00 [facility] [place] Respitory Rate 2015-07-16 13:56:00 [facility] [place] Heart Rate 2015-07-16 13:56:00 [facility] Temperature Oral (F) 2015-07-16 13:56:00 98.0 F [facility] [place] Systolic (mm Hg) 2015-07-16 13:55:00 Eleazar rial [place] Diastolic (mm Hg) 2015-07-16 13:55:00 [facility] [place] Respitory Rate 2015-07-16 13:55:00 [facility] Heart Rate 2015-07-16 13:55:00 [facility] [place] Temperature Oral (F) 2015-07-16 13:55:00 97.4 F [facility] Systolic (mm Hg) 2015-07-16 10:00:00 Eleazar rial [place] Diastolic (mm Hg) 2015-07-16 10:00:00 [facility] [place] Respitory Rate 2015-07-16 10:00:00 [facility] [place] Heart Rate 2015-07-16 10:00:00 [facility] [place] Temperature Oral (F) 2015-07-16 10:00:00 97.9 F [facility] [place] Height 2015-07-16 01:30:00 152.4 cm [facility] [place] Weight 2015-07-16 01:30:00 [facility] BMI Calculated 2015-07-16 01:30:00 [facility] [place] Height 2015-07-15 18:10:00 152.4 cm [facility] [place] BMI Calculated 2015-07-15 18:10:00 [facility] [place] Weight 2015-07-15 18:10:00 [facility] [place] Weight 2015-07-05 04:10:00 [facility] [place] Height 2015-07-05 04:10:00 152.4 cm [facility] BMI Calculated 2015-07-05 04:10:00 [facility] [place] Temperature Oral (F) 2015-07-05 04:10:00 98.3 F [facility] [place] Respitory Rate 2015-07-05 04:10:00 [facility] [place] Heart Rate 2015-07-05 04:10:00 [facility] Systolic (mm Hg) 2015-07-05 04:10:00 Eleazar rial [place] Diastolic (mm Hg) 2015-07-05 04:10:00 [facility] BMI Calculated 2015-07-04 18:05:00 [facility] [place] Weight 2015-07-04 18:05:00 [facility] Height 2015-07-04 18:05:00 152.4 cm [facility] [place] Temperature Oral (F) 2015-07-04 18:05:00 97.9 F [facility] Respitory Rate 2015-07-04 18:05:00 [facility] [place] Heart Rate 2015-07-04 18:05:00 [facility] [place] Systolic (mm Hg) 2015-07-04 18:05:00 Eleazar [facility] [place] Diastolic (mm Hg) 2015-07-04 18:05:00 [facility] [place] BMI Calculated 2015-06-04 04:13:00 [facility] [place] Weight 2015-06-04 04:13:00 [facility] [place] Height 2015-06-04 04:13:00 152.4 cm [facility] [place] Temperature Oral (F) 2015-06-04 04:13:00 98.8 F [facility] [place] Respitory Rate 2015-06-04 04:13:00 [facility] [place] Heart Rate 2015-06-04 04:13:00 [facility] [place] Systolic (mm Hg) 2015-06-04 04:13:00 Eleazar [facility] [place] Diastolic (mm Hg) 2015-06-04 04:13:00 [facility] [place] Systolic (mm Hg) 2015-05-18 22:47:00 Eleazar rial [place] Diastolic (mm Hg) 2015-05-18 22:47:00 [facility] [place] Temperature Oral (F) 2015-05-18 22:47:00 96.6 F [facility] Heart Rate 2015-05-18 22:47:00 [facility] Respitory Rate 2015-05-18 22:47:00 [facility] [place] Systolic (mm Hg) 2015-05-18 22:30:00 Eleazar [facility] [place] Diastolic (mm Hg) 2015-05-18 22:30:00 [facility] [place] Systolic (mm Hg) 2015-05-18 21:00:00 Eleazar rial [place] Diastolic (mm Hg) 2015-05-18 21:00:00 [facility] [place] Temperature Oral (F) 2015-05-18 21:00:00 98.1 F [facility] [place] Respitory Rate 2015-05-18 21:00:00 [facility] [place] Temperature Oral (F) 2015-05-18 19:21:00 98.2 F [facility] [place] Heart Rate 2015-05-18 19:21:00 [facility] Respitory Rate 2015-05-18 19:21:00 [facility] [place] Heart Rate 2015-05-18 17:10:00 [facility] [place] Respitory Rate 2015-05-09 20:00:00 [facility] [place] Systolic (mm Hg) 2015-05-09 20:00:00 Eleazar [facility] [place] Diastolic (mm Hg) 2015-05-09 20:00:00 [facility] [place] Temperature Oral (F) 2015-05-09 20:00:00 97.5 F [facility] Temperature Oral (F) 2015-05-09 19:10:00 97.5 F [facility] [place] Systolic (mm Hg) 2015-05-09 19:10:00 Eleazar rial [place] Diastolic (mm Hg) 2015-05-09 19:10:00 [facility] [place] Respitory Rate 2015-05-09 19:10:00 [facility] [place] Systolic (mm Hg) 2015-05-09 18:41:00 Eleazar rial [place] Diastolic (mm Hg) 2015-05-09 18:41:00 [facility] [place] Weight 2015-05-09 17:37:00 [facility] BMI Calculated 2015-05-09 17:37:00 [facility] [place] Height 2015-05-09 17:37:00 152.4 cm [facility] Temperature Oral (F) 2015-05-09 17:37:00 98.9 F [facility] Respitory Rate 2015-05-09 17:37:00 [facility] [place] Heart Rate 2015-05-09 17:37:00 [facility] Systolic (mm Hg) 2015-05-03 00:04:00 Eleazar rial [place] Diastolic (mm Hg) 2015-05-03 00:04:00 [facility] [place] Heart Rate 2015-05-03 00:04:00 [facility] [place] Respitory Rate 2015-05-03 00:04:00 [facility] [place] Temperature Oral (F) 2015-05-03 00:04:00 98.5 F [facility] Heart Rate 2015-05-02 21:17:00 [facility] Respitory Rate 2015-05-02 21:17:00 [facility] [place] Systolic (mm Hg) 2015-05-02 21:17:00 Eleazar rial [place] Diastolic (mm Hg) 2015-05-02 21:17:00 [facility] Heart Rate 2015-05-02 20:24:00 [facility] Temperature Oral (F) 2015-05-02 20:24:00 98.1 F [facility] [place] Systolic (mm Hg) 2015-05-02 20:24:00 Eleazar [facility] [place] Diastolic (mm Hg) 2015-05-02 20:24:00 [facility] [place] Respitory Rate 2015-05-02 20:24:00 [facility] [place] Temperature Oral (F) 2015-05-02 18:35:00 98.9 F [facility] [place] Systolic (mm Hg) 2015-04-11 19:45:00 Eleazar [facility] [place] Diastolic (mm Hg) 2015-04-11 19:45:00 [facility] [place] Temperature Oral (F) 2015-04-11 19:45:00 98.7 F [facility] Respitory Rate 2015-04-11 19:45:00 [facility] [place] Heart Rate 2015-04-11 19:45:00 [facility] [place] Weight 2015-04-11 16:35:00 [facility] [place] Temperature Oral (F) 2015-04-11 16:35:00 98.4 F [facility] Systolic (mm Hg) 2015-04-11 16:35:00 Eleazar [facility] [place] Diastolic (mm Hg) 2015-04-11 16:35:00 [facility] Respitory Rate 2015-04-11 16:35:00 [facility] Heart Rate 2015-04-11 16:35:00 [facility] [place] Systolic (mm Hg) 2015-03-30 22:06:00 Eleazar rial [place] Diastolic (mm Hg) 2015-03-30 22:06:00 [facility] [place] Temperature Oral (F) 2015-03-30 22:06:00 97.9 F [facility] [place] Heart Rate 2015-03-30 22:06:00 [facility] [place] Respitory Rate 2015-03-30 22:06:00 [facility] BMI Calculated 2015-03-30 19:44:00 [facility] [place] Height 2015-03-30 19:44:00 152.4 cm [facility] Systolic (mm Hg) 2015-03-30 19:44:00 Eleazar [facility] [place] Diastolic (mm Hg) 2015-03-30 19:44:00 [facility] Respitory Rate 2015-03-30 19:44:00 [facility] Heart Rate 2015-03-30 19:44:00 [facility] [place] Weight 2015-03-30 19:44:00 [facility] [place] Temperature Oral (F) 2015-03-30 19:44:00 97.9 F [facility] Respitory Rate 2015-03-24 21:57:00 [facility] [place] Temperature Oral (F) 2015-03-24 21:57:00 97.9 F [facility] Heart Rate 2015-03-24 21:57:00 [facility] Systolic (mm Hg) 2015-03-24 21:57:00 Eleazar [facility] [place] Diastolic (mm Hg) 2015-03-24 21:57:00 [facility] [place] Heart Rate 2015-03-24 17:28:00 [facility] Temperature Oral (F) 2015-03-24 17:28:00 98.8 F [facility] [place] Respitory Rate 2015-03-24 17:28:00 [facility] [place] Systolic (mm Hg) 2015-03-24 17:28:00 Eleazar [facility] [place] Diastolic (mm Hg) 2015-03-24 17:28:00 [facility] [place] Heart Rate 2015-03-24 13:08:00 [facility] [place] Temperature Oral (F) 2015-03-24 13:08:00 98.4 F [facility] [place] Respitory Rate 2015-03-24 13:08:00 [facility] [place] Systolic (mm Hg) 2015-03-24 13:08:00 Eleazar [facility] [place] Diastolic (mm Hg) 2015-03-24 13:08:00 [facility] BMI Calculated 2015-03-22 01:41:00 [facility] [place] Weight 2015-03-22 01:41:00 [facility] [place] Height 2015-03-22 01:41:00 152.4 cm [facility] [place] BMI Calculated 2015-03-21 18:42:00 [facility] Weight 2015-03-21 18:42:00 [facility] Height 2015-03-21 18:42:00 152.4 cm [facility] Systolic (mm Hg) 2015-03-11 22:39:00 Eleazar [facility] Diastolic (mm Hg) 2015-03-11 22:39:00 [facility] Respitory Rate 2015-03-11 22:39:00 [facility] Heart Rate 2015-03-11 22:39:00 [facility] [place] Temperature Oral (F) 2015-03-11 22:39:00 98.1 F [facility] [place] BMI Calculated 2015-03-11 19:44:00 [facility] [place] Weight 2015-03-11 19:44:00 [facility] Systolic (mm Hg) 2015-03-11 19:44:00 Eleazar [facility] Diastolic (mm Hg) 2015-03-11 19:44:00 [facility] Temperature Oral (F) 2015-03-11 19:44:00 97.9 F [facility] Heart Rate 2015-03-11 19:44:00 [facility] [place] Respitory Rate 2015-03-11 19:44:00 [facility] [place] Height 2015-03-11 19:44:00 152.4 cm [facility] [place] Temperature Oral (F) 2015-03-05 10:15:00 97.9 F [facility] Systolic (mm Hg) 2015-03-05 10:15:00 Eleazar [facility] [place] Diastolic (mm Hg) 2015-03-05 10:15:00 [facility] Respitory Rate 2015-03-05 10:15:00 [facility] [place] Respitory Rate 2015-03-05 09:53:00 [facility] [place] Temperature Oral (F) 2015-03-05 09:53:00 97.8 F [facility] [place] Systolic (mm Hg) 2015-03-05 09:53:00 Eleazar [facility] Diastolic (mm Hg) 2015-03-05 09:53:00 [facility] [place] Respitory Rate 2015-03-05 06:30:00 [facility] [place] Systolic (mm Hg) 2015-03-05 06:30:00 Eleazar [facility] [place] Diastolic (mm Hg) 2015-03-05 06:30:00 [facility] Temperature Oral (F) 2015-03-05 06:20:00 97.7 F [facility] [place] Heart Rate 2015-03-05 06:20:00 [facility] [place] Heart Rate 2015-03-05 05:46:00 [facility] [place] Height 2015-03-05 05:46:00 152.4 cm [facility] [place] BMI Calculated 2015-03-05 05:46:00 [facility] Weight 2015-03-05 05:46:00 [facility] [place] Systolic (mm Hg) 2015-02-25 20:55:00 [facility] [place] Diastolic (mm Hg) 2015-02-25 20:55:00 [facility] [place] Temperature Oral (F) 2015-02-25 20:55:00 97.9 F [facility] Heart Rate 2015-02-25 20:55:00 [facility] Respitory Rate 2015-02-25 20:55:00 [facility] Temperature Oral (F) 2015-02-25 17:18:00 98 F [facility] [place] Heart Rate 2015-02-25 17:18:00 [facility] [place] Respitory Rate 2015-02-25 17:18:00 [facility] [place] Systolic (mm Hg) 2015-02-25 17:18:00 [facility] [place] Diastolic (mm Hg) 2015-02-25 17:18:00 [facility] [place] Systolic (mm Hg) 2015-02-25 12:00:00 [facility] [place] Diastolic (mm Hg) 2015-02-25 12:00:00 [facility] Respitory Rate 2015-02-25 12:00:00 [facility] Heart Rate 2015-02-25 12:00:00 [facility] Temperature Oral (F) 2015-02-25 12:00:00 97.8 F [facility] Height 2015-02-24 16:11:00 152.4 cm [facility] BMI Calculated 2015-02-24 16:11:00 [facility] [place] Weight 2015-02-24 16:11:00 [facility] [place] Heart Rate 2015-02-18 20:17:00 [facility] Temperature Oral (F) 2015-02-18 20:17:00 97.3 F [facility] Systolic (mm Hg) 2015-02-18 20:17:00 [facility] Diastolic (mm Hg) 2015-02-18 20:17:00 [facility] Respitory Rate 2015-02-18 20:17:00 [facility] Heart Rate 2015-02-18 16:13:00 [facility] Respitory Rate 2015-02-18 16:13:00 [facility] [place] Systolic (mm Hg) 2015-02-18 16:13:00 [facility] Diastolic (mm Hg) 2015-02-18 16:13:00 [facility] [place] Temperature Oral (F) 2015-02-18 16:13:00 97.5 F [facility] Temperature Oral (F) 2015-02-18 12:19:00 97.9 F [facility] [place] Systolic (mm Hg) 2015-02-18 12:19:00 [facility] Diastolic (mm Hg) 2015-02-18 12:19:00 [facility] [place] Respitory Rate 2015-02-18 12:19:00 [facility] [place] Heart Rate 2015-02-18 12:19:00 [facility] Weight 2015-02-17 02:30:00 [facility] Height 2015-02-17 02:30:00 152.4 cm [facility] [place] BMI Calculated 2015-02-17 02:30:00 [facility] Weight 2015-02-16 20:42:00 [facility] [place] BMI Calculated 2015-02-16 20:42:00 [facility] Height 2015-02-16 20:42:00 152.4 cm [facility] Respitory Rate 2013-12-25 19:27:00 [facility] Heart Rate 2013-12-25 19:27:00 [facility] Diastolic (mm Hg) 2013-12-25 19:27:00 [facility] [place] Systolic (mm Hg) 2013-12-25 19:27:00 [facility] [place] Temperature Oral (F) 2013-12-25 19:27:00 98.3 F [facility] BMI Calculated 2013-12-25 16:48:00 [facility] Weight 2013-12-25 16:48:00 [facility] Height 2013-12-25 16:48:00 152.4 cm [facility] Respitory Rate 2013-12-25 16:48:00 [facility] Heart Rate 2013-12-25 16:48:00 [facility] [place] Diastolic (mm Hg) 2013-12-25 16:48:00 [facility] Systolic (mm Hg) 2013-12-25 16:48:00 [facility] [place] Temperature Oral (F) 2013-12-25 16:48:00 98.8 F [facility] [place] Heart Rate 2013-12-23 00:27:00 [facility] [place] Systolic (mm Hg) 2013-12-23 00:27:00 Ele[facility] [place] Respitory Rate 2013-12-23 00:27:00 [facility] [place] Temperature Oral (F) 2013-12-23 00:27:00 98.3 F [facility] [place] Diastolic (mm Hg) 2013-12-23 00:27:00 [facility] [place] Diastolic (mm Hg) 2013-12-22 23:06:00 [facility] [place] Temperature Oral (F) 2013-12-22 23:06:00 98.4 F [facility] [place] Systolic (mm Hg) 2013-12-22 23:06:00 Eleazar [facility] [place] Respitory Rate 2013-12-22 23:06:00 [facility] Heart Rate 2013-12-22 23:06:00 [facility] Weight 2013-12-22 20:46:00 [facility] [place] Temperature Oral (F) 2013-12-22 20:46:00 98.7 F [facility] Systolic (mm Hg) 2013-12-22 20:46:00 [facility] Diastolic (mm Hg) 2013-12-22 20:46:00 [facility] [place] Respitory Rate 2013-12-22 20:46:00 [facility] [place] Heart Rate 2013-12-22 20:46:00 [facility] Diastolic (mm Hg) 2013-12-17 20:30:00 [facility] [place] Respitory Rate 2013-12-17 20:30:00 [facility] Systolic (mm Hg) 2013-12-17 20:30:00 [facility] Systolic (mm Hg) 2013-12-17 19:06:00 [facility] [place] Diastolic (mm Hg) 2013-12-17 19:06:00 [facility] Respitory Rate 2013-12-17 19:06:00 [facility] Systolic (mm Hg) 2013-12-17 18:54:00 [facility] Diastolic (mm Hg) 2013-12-17 18:54:00 [facility] Temperature Oral (F) 2013-12-17 17:09:00 98.1 F [facility] [place] Respitory Rate 2013-12-17 16:50:00 [facility] [place] Temperature Oral (F) 2013-12-17 09:00:00 97.1 F [facility] Height 2013-12-17 02:58:00 152.4 cm [facility] Weight 2013-12-17 02:58:00 [facility] BMI Calculated 2013-12-17 02:58:00 [facility] [place] Temperature Oral (F) 2013-12-17 02:55:00 98.1 F [facility] [place] Height 2013-12-16 17:19:00 152.4 cm [facility] BMI Calculated 2013-12-16 17:19:00 [facility] [place] Weight 2013-12-16 17:19:00 [facility] [place] Heart Rate 2013-12-16 17:19:00 [facility] [place] Temperature Oral (F) 2013-11-08 21:00:00 98 F [facility] [place] Diastolic (mm Hg) 2013-11-08 21:00:00 [facility] [place] Respitory Rate 2013-11-08 21:00:00 [facility] [place] Systolic (mm Hg) 2013-11-08 21:00:00 [facility] Temperature Oral (F) 2013-11-08 19:13:00 97.6 F [facility] Diastolic (mm Hg) 2013-11-08 19:13:00 [facility] Systolic (mm Hg) 2013-11-08 19:13:00 [facility] [place] Respitory Rate 2013-11-08 19:13:00 [facility] [place] Systolic (mm Hg) 2013-11-08 16:18:00 [facility] [place] Respitory Rate 2013-11-08 16:18:00 [facility] [place] Diastolic (mm Hg) 2013-11-08 16:18:00 [facility] Temperature Oral (F) 2013-11-08 11:34:00 99.0 F [facility] Heart Rate 2013-11-08 11:34:00 [facility] [place] Heart Rate 2013-11-08 08:04:00 [facility] BMI Calculated 2013-11-08 04:51:00 [facility] Height 2013-11-08 04:51:00 152.4 cm [facility] Weight 2013-11-08 04:51:00 [facility] Heart Rate 2013-11-08 04:51:00 [facility] Procedures Procedure Date / Time Performing Clinician Source Performed Cardiac catheterization [facility] procedure Stent placement<sup>1</sup> Eleazar [facility] Plan of Care Planned Activity Planned Date Details Comments Source Future Scheduled Test 2021-05-29 IMM Influenza Seasonal [facility] 00:00:00 May to October (>/= 19 yrs) [code = IMM Influenza Seasonal May to October (>/= 19 yrs)] Future Scheduled Test 2015 IMM Pneumococcal Age 65 [facility] 00:00:00 and Up [code = IMM Pneumococcal Age 65 and Up] Future Scheduled Test 2000 Screening for malignant [facility] 00:00:00 neoplasm of colon (procedure) [code = 645256772] Future Scheduled Test 1990 Breast Cancer Scrn [facility] 00:00:00 (Yearly) [code = Breast Cancer Scrn (Yearly)] Future Scheduled Test 1962 COVID-19 Vaccine (1) [facility] 00:00:00 [code = COVID-19 Vaccine (1)] Encounters Start End Encounter Admission Attending Care Care Encounter Source Date/Time Date/Time Type Type Clinicians Facility Department ID 2020-10-15 2020-10-15 Emergency [facility] [id number] [facility] [place] [place] 02:02:00 04:45:00 Wilberto Middleton [place] [id number] ity [facility] [id number] [facility] [id number] [address] 2020-10-15 2020-10-15 [facility] [id number] 02:02:00 04:45:00 Wilberto Freitas [id number] [place] [id number] [place] [id number] 2020-10-15 2020-10-15 Emergency X CONNOR ORJUN [facility] [id number] [facility] 02:02:00 02:02:00 WILBERTO streeter [facility] 2020-01-21 2020-01-21 Outpatient E [facility] MED [id number] [facility] 05:31:00 05:31:00 2019-10-15 2019-10-15 Emergency E [facility] [id number] [facility] 13:12:00 13:12:00 2019-05-20 2019-05-20 Emergency E [facility] [id number] [facility] 15:19:00 15:19:00 2019-02-25 2019-02-25 Emergency E [facility] [id number] [facility] 10:56:00 10:56:00 2018-08-21 2018-08-21 Emergency [facility] [id number] [place] 18:32:58 18:32:58 Health 2018-08-21 2018-08-21 Emergency [facility] [id number] [place] 17:47:59 17:47:59 Health 2018-08-21 2018-08-21 Emergency [facility] [id number] [place] 16:16:06 16:16:06 Health 2018-08-16 2018-08-16 Emergency [facility] [id number] [place] 22:04:00 22:04:00 [facility] 2018-08-16 2018-08-16 Emergency [facility] [id number] [place] 21:21:42 21:21:42 Health 2018-05-18 2018-05-18 Emergency [facility] [id number] [place] 14:51:52 14:51:52 Health 2018-03-08 2018-03-08 Emergency [facility] [id number] [place] 15:12:17 15:12:17 Health 2018-01-16 2018-01-16 Emergency [facility] [id number] [place] 17:53:03 17:53:03 Health 2018-01-16 2018-01-16 Emergency [facility] [id number] [place] 00:00:00 00:00:00 [facility] 2018-01-16 2018-01-16 Outpatient [facility] [id number] [address] [place] [address] 00:00:00 00:00:00 [facility] 2017-11-11 2017-11-11 Emergency E [facility] [id number] 16:37:00 16:37:00 [facility] 2017-01-19 2017-01-19 Emergency [facility] [id number] [facility] 17:18:00 23:37:00 r [facility] 34 l [facility] 2017-01-16 2017-01-17 Emergency [facility] [id number] [facility] 23:22:00 02:34:00 r [facility] 33 l [facility] 2016-11-29 2016-11-29 Emergency [facility] [id number] [facility] 00:17:00 04:13:00 geovanny Wing 32 l [facility] 2016-11-06 2016-11-07 Emergency [facility] [id number] [facility] 23:34:00 03:03:00 r [facility] 31 l [facility] 2016-10-10 2016-10-11 Observatio [facility] [id number] [facility] 17:45:00 19:54:00 n geovanny Wing 30 [facility] 2016-09-15 2016-09-15 Emergency [facility]Fl[facility] [id number] [facility] 03:19:00 06:56:00 r [facility]iej 29 l [facility] 2016-04-14 2016-04-14 Emergency [facility] [id number] [facility] 02:11:00 06:37:00 r [facility]iej 28 [facility] 2016-03-11 2016-03-12 OBS [facility] [id number] [facility] 19:41:00 20:25:00 Observatio r [facility] 27 l n Patient [facility] 2016-03-05 2016-03-06 EC [facility]Flavo [facility] [id number] [facility] 21:54:00 02:21:00 Emergency r [facility] 26 l [facility] 2016-02-29 2016-03-01 EC [facility]Flavo [facility] [id number] [facility] 22:25:00 01:29:00 Emergency r [facility] 25 l Center [facility] 2015-09-04 2015-09-05 OBS [facility] [id number] [facility] 03:30:00 16:26:00 Observatio r [place] 24 l n Patient [facility] 2015-07-15 2015-07-16 OBS [facility] [id number] [facility] 18:00:00 21:30:00 [facility]atio [facility] [place] 23 l n Patient [facility] 2015-07-05 2015-07-05 EC nullFlavo [facility] [id number] [facility] 04:07:00 07:09:00 Emergency r [facility] 22 l [facility] 2015-07-04 2015-07-04 EC [facility]Fl[facility] [id number] [facility] 17:57:00 20:54:00 Emergency r [facility] 21 l [facility] 2015-06-04 2015-06-04 EC [facility]Flavo [facility] [id number] [facility] 04:00:00 07:09:00 Emergency r [place] 20 l [facility] 2015-05-18 2015-05-18 EC nullFlavo [facility] [id number] [facility] 16:55:00 23:04:00 Emergency r [place] 19 l [facility] 2015-05-09 2015-05-09 EC nullFlavo [facility] [id number] [facility] 17:15:00 20:10:00 Emergency r [place] 18 l [facility] 2015-05-02 2015-05-03 EC nullFlavo [facility] [id number] [facility] 18:18:00 00:05:00 Emergency r [place] 17 l [facility] 2015-04-11 2015-04-11 EC nullFlavo [facility] [id number] [facility] 16:25:00 19:47:00 Emergency r [place] 16 l [facility] 2015-03-30 2015-03-30 EC nullFlavo [facility] [id number] [facility] 19:39:00 22:11:00 Emergency r [facility] 15 l [facility] 2015-03-21 2015-03-24 Inpatient [facility] [id number] [facility] 18:24:00 22:30:00 r [place] 14 l [facility] 2015-03-11 2015-03-11 EC [facility] [id number] [facility] 19:43:00 22:41:00 Emergency r [place] 13 l [facility] 2015-03-05 2015-03-05 [id number] 05:43:00 10:21:00 Emergency r [place] 12 l [facility] 2015-02-24 2015-02-26 [facility] [id number] 15:34:00 01:14:00 Observatio r [place] 11 l n Patient [facility] 2015-02-16 2015-02-18 OBS [facility] [id number] [facility] 20:36:00 21:00:00 Observatio r [place] 10 l Patient [facility] 2013-12-25 2013-12-25 EC [facility] [id number] [facility] 16:37:00 19:52:00 Emergency r [place] 09 l [facility] 2013-12-22 2013-12-23 EC [facility] [id number] [facility] 20:43:00 00:29:00 Emergency r [facility] 08 [facility] 2013-12-16 2013-12-17 OBS [facility] [id number] [facility] 17:18:00 22:45:00 Observatio r [place] 07 [facility] 2013-11-08 2013-11-08 OBS [facility] [id number] 8_3 [facility] 04:50:00 23:00:00 Observatio r [place] [id number] [address] Results Test Description Test Time Test [...] STOOL 2017-01-19 Negative [facility] 19:21:00 *NA*(01/19/17 2:21 [place] PM) URINE AND STOOL 2017-01-19 Negative (01/19/17 Me morial 19:21:00 2:21 PM) [facility] URINE AND STOOL 2017-01-19 Negative (01/19/17 Me morial 19:21:00 2:21 PM) [facility] URINE AND STOOL 2017-01-19 Negative (01/19/17 Me morial 19:21:00 2:21 PM) [place] URINE AND STOOL 2017-01-19 1 [facility] 19:21:00 [facility] URINE AND STOOL 2017-01-19 1 [facility] 19:21:00 [facility] URINE AND STOOL 2017-01-19 7.0 [facility] 19:21:00 [facility] URINE AND STOOL 2017-01-19 1.008 [facility] 19:21:00 [facility] URINE AND STOOL 2017-01-19 Clear (01/19/17 2:21 [facility] 19:21:00 PM) [place] CARDIAC ENZYMES 2017-01-19 3.0 [facility] 18:07:00 [place] CARDIAC ENZYMES 2017-01-19 <0.02 [facility] 18:07:00 [facility] CHEM PANEL 2017-01-19 231 [facility] 18:07:00 [facility] CHEM PANEL 2017-01-19 9 [facility] 18:07:00 [facility] CHEM PANEL 2017-01-19 8.4 [facility] 18:07:00 [place] CHEM PANEL 2017-01-19 1.0 [facility] 18:07:00 [facility] CHEM PANEL 2017-01-19 3.6 [facility] 18:07:00 [facility] CHEM PANEL 2017-01-19 7 [facility] 18:07:00 [place] CHEM PANEL 2017-01-19 32 [facility] 18:07:00 [facility] CHEM PANEL 2017-01-19 104 [facility] 18:07:00 [place] CHEM PANEL 2017-01-19 3.4 [facility] 18:07:00 [place] CHEM PANEL 2017-01-19 141 [facility] 18:07:00 [place] CHEM PANEL 2017-01-19 0.79 [facility] 18:07:00 [place] CHEM PANEL 2017-01-19 3.6 [facility] 18:07:00 [place] CHEM PANEL 2017-01-19 9.1 [facility] 18:07:00 [place] CHEM PANEL 2017-01-19 25 [facility] 18:07:00 [place] CHEM PANEL 2017-01-19 7.2 [facility] 18:07:00 [place] CHEM PANEL 2017-01-19 1.1 [facility] 18:07:00 [facility] CHEM PANEL 2017-01-19 111 [facility] 18:07:00 [place] CHEM PANEL 2017-01-19 31 [facility] 18:07:00 [place] CHEM PANEL 2017-01-19 90 [facility] 18:07:00 [facility] CHEM PANEL 2017-01-19 73 [facility] 18:07:00 [place] CHEM PANEL 2017-01-19 75 [facility] 18:07:00 [facility] HEMATOLOGY 2017-01-19 18:07:00 Test Item Value Reference Range Interpretation Comme nts PTT (test code = PTT) 31.3 s 22.9-35.8 [facility] LrxcwktMGVHQEKHNJ5817-32-72 18:07:008.5[facility] 2017-01-19 18:07:0042.0[facility] TdpsyhgTXXLRELGPD0410-62-64 18:07:004.92[facility] KzykeusDIYPGEQQXD9761-76-22 18:07:0014.4[facility] LpkybbyKPNYCMEEOB4825-15-39 18:07:0014.2[facility] JyycbbjACWLCCOLED5994-04-45 18:07:79367Oozutwxh [place] DPFTJZXSUT7642-07-69 18:07:0034.2[facility] NjdeuziQJPQWAZNND3839-42-04 18:07:00 Test Item Value Reference Range Interpretation Comments MCH (test code = MCH) 29.2 pg 27.0-31.0 [facility] MxdtcxdCABCCBPERX4566-43-34 18:07:0085.5[facility]annHEMATOLOGY 2017-01-19 18:07:007.7[facility] JkpbvdoJPIUXWKCHM4840-16-79 18:07:00 Test Item Value Reference Range Interpretation Comments PT (test code = PT) 13.7 s 12.0-14.7 [facility] RwhgjeeTSMMTXFJYS1582-52-05 18:07:001.03[facility]annHEMATOLOGY 2017-01-19 18:07:000.3[facility] FzkqbveWPWFFTYGJY6916-35-73 18:07:0068.3[facility] UflyveqYSTMKQCQDM4519-01-14 18:07:000.6[facility] CmrceaxBQLKDVNHKR0534-03-65 18:07:005.3[facility] IehmgiqSFTZGYXBSQ3826-37-96 18:07:004.5[facility] [place] SRSXTJAHKB2622-86-64 18:07:000.6[facility] QmiblhuEIEVGSLRLO7195-83-36 18:07:001.4 [facility] ZdvudkrAQQFJZRCVK4320-21-10 18:07:007.8[facility] HermannHEMATOLOGY 2017-01-19 18:07:0018.8[facility] HermannDRUG YVMBXR1211-74-75 00:23:00Positive *ABN*(01/16/17 7:23 PM)[facility] LANIVM6176-26-93 00:23:00Negative *NA*(01/16/17 7:23 PM)[facility] RNNEBV7525-93-56 00:23:00Negative *NA*(01/16/17 7:23 PM)[facility] KJHLWX6779-34-67 00:23:00Negative *NA*(01/16/17 7:23 PM)[facility] NUOSOT0087-76-65 00:23:00See Note (01/16/17 7:23 PM)[facility] TUTWPO8441-53-11 00:23:00Negative *NA*(01/16/17 7:23 PM)[facility] PJHGSS6149-89-76 00:23:00Negative *NA*(01/16/17 7:23 PM)[facility] HAVTMM9160-91-27 00:23:00Negative *NA*(01/16/17 7:23 PM)[facility] AND FQXDT6265-18-04 00:23:00Negative *NA*(01/16/17 7:23 PM)[facility] CODPF0657-52-17 00:23:00Negative *NA*(01/16/17 7:23 PM)[facility] QYQBO8504-81-28 00:23:00Negative (01/16/17 7:23 PM)[facility] UEERV1400-47-89 00:23:00Negative (01/16/17 7:23 PM)[facility] QJTXW2996-06-98 00:23:00Negative (01/16/17 7:23 PM)[facility] PDZFB8065-74-89 00:23:001.0[facility] OHFZG4487-27-06 00:23:00Negative (01/16/17 7:23 PM)[facility] PZGJL1739-55-87 00:23:00Slight Cloudy (01/16/17 7:23 PM)[facility] CBJZD1126-18-51 00:23:00 Test Item Value Reference Range Interpretation Comments UA Spec Grav (test code = UA Spec 1.007 1 Grav) [facility] MVRJL3987-36-21 00:23:00 Test Item Value Reference Range Interpretation Comments UA pH (test code = UA pH) 6.0 1 5.0-8.0 [facility] NYFGE8575-04-20 00:23:00Negative (01/16/17 7:23 PM) [facility] ITEEJ8262-24-03 00:23:00Yellow *NA*(01/16/17 7:23 PM) [facility] VamxluePHUNIMDSMN6467-45-40 23:57:001.8[facility] HermannHEMATOLOGY 2017-01-16 23:57:000.2[facility] MjljsqwMQCYLXSLOQ7026-67-76 23:57:0060.6[facility] TnrfzojIFHCXDSHAH5374-45-36 23:57:008.3[facility] SdacjmiBQGVUQGKTR1360-24-50 23:57:003.5[facility] EhwccglMEGXTPUXHL6665-80-16 23:57:0026.8[facility] [place] CARDIAC UJBTNHZ1291-48-28 23:57:00<0.02[facility]annCARDIAC ENZYMES 2017-01-16 23:57:002.0[facility]annCARDIAC DLGEJUU8115-93-03 23:57:44650 [facility]annC[facility]AC ILZHEZS0529-28-48 23:57:001.0[facility] HermannCHEM PANEL 2017-01-16 23:57:0073[facility] HermannCHEM APLTQ2589-93-72 23:57:0029[facility] HermannCHEM YEPJY1937-12-19 23:57:60170Jlsnuuod HermannCHEM SEYES2703-81-45 23:57:12664Czlhoppe HermannCHEM NGBQS7108-33-40 23:57:0015[facility] HermannCHEM LFUJH8652-92-02 23:57:0011.0[facility] HermannCHEM YVKTR5006-82-00 23:57:0016 [facility]annCHEM MNZEH0314-30-43 23:57:009.4[facility] HermannCHEM PANEL 2017-01-16 23:57:000.94[facility] HermannCHEM UYNPG8152-22-25 23:57:36317Upljfuge HermannCHEM WNXZL4088-14-63 23:57:004.0[facility] HermannCHEM QICLJ3843-25-16 23:57:003.6[facility] HermannCHEM CTPHV9174-83-44 23:57:0024[facility] HermannCHEM SGYDY8588-29-67 23:57:000.6[facility] HermannCHEM CJDHQ7649-38-82 23:57:41293 [facility]annCHEM YFOSX0018-67-56 23:57:0029[facility] HermannCHEM PANEL 2017-01-16 23:57:000.9[facility] HermannCHEM JFSIH0306-66-71 23:57:003.9[facility] HermannCHEM IHTDM8459-28-39 23:57:007.5[facility] UtvjtgnNCOAWYWCKK2050-69-51 23:57:0014.6[facility] OxpagovWEDTULRUDH7461-64-55 23:57:0042.7[facility] [place] MCWANWZASM9638-03-37 23:57:0034.2[facility] NnfrgfaXSWVPTUPQB9336-35-21 23:57:00 85.3[facility]orial BkwlwxcWPWUJTWMNX5040-91-94 23:57:00 Test Item Value Reference Range Interpretation Comments MCH (test code = MCH) 29.2 pg 27.0-31.0 [facility] SjnknbgVYVGHEUHTA3214-78-93 23:57:0014.3[facility] HermannHEMATOLOGY 2017-01-16 23:57:73401Ghksfiki MnwmiqtGGZAOEFVBL1940-91-44 23:57:008.0[facility] YkqhijqZWQLVLKOQU2200-73-27 23:57:006.6[facility] LhzsxhaGQVUUURCDO4425-90-16 23:57:005.00[facility] SwwynqvBYYMKHGLNR2975-61-58 23:57:000.8[facility] HELYAJLYAH7269-87-46 23:57:004.0[facility] CjljuhdPPDPHALBLR3079-82-13 23:57:000.5 [facility] MspvsajOHIFWMLJNV5711-41-41 23:57:000.1[facility]annURINE AND STOOL 2016-11-29 02:18:00Negative *NA*(11/28/16 9:18 PM)[facility] STOOL 2016-11-29 02:18:00Negative (11/28/16 9:18 PM)[facility] STOOL 2016-11-29 02:18:001.0[facility] AND CBDYN8873-99-54 02:18:00Negative (11/28/16 9:18 PM)[facility] ELEWS7422-65-57 02:18:00Negative *NA*(11/28/16 9:18 PM)[facility] QJJKD5459-72-48 02:18:00Moderate *ABN*(11/28/16 9:18 PM)[facility] YMVOV4542-59-44 02:18:00Yellow *NA*(11/28/16 9:18 PM)[facility] NLIBP6718-08-81 02:18:00 Test Item Value Reference Range Interpretation Comments UA pH (test code = UA pH) 6.0 1 5.0-8.0 [facility] KIQZT3632-74-46 02:18:00Negative (11/28/16 9:18 PM) [facility] YALEJ2346-43-17 02:18:00Negative (11/28/16 9:18 PM) [facility] GRNFV3803-21-64 02:18:00<=1.005 *NA*(11/28/16 9:18 PM)[facility] OEDZO1842-69-08 02:18:00Clear (11/28/16 9:18 PM) [facility]annCARDIAC TYTLRQT8453-61-36 01:37:00<0.02[facility] CARDIAC LWUHEWL1074-73-00 01:37:001.3[facility] HermannCARDIAC LLAWIZF7558-94-23 01:37:0089[facility]annCARDIAC HOZYXUK9699-34-79 01:37:001.5[facility] [place] CHEM GFADZ8672-33-59 01:37:003.9[facility] HermannCHEM ZVCMV1087-41-16 01:37:0050 [facility]annCHEM QIBFX6552-36-79 01:37:000.9[facility] HermannCHEM PANEL 2016-11-29 01:37:0024[facility] HermannCHEM LRKCT7603-54-27 01:37:003.7[facility] HermannCHEM ZRCFZ0823-29-64 01:37:0089[facility] HermannCHEM JBMSJ9012-36-42 01:37:75148Egrctshs HermannCHEM OLPAB4502-34-03 01:37:0010[facility] HermannCHEM YUOPX7864-30-50 01:37:001.28[facility] HermannCHEM IFRIQ5116-59-70 01:37:0030 [facility]annCHEM ASZWX9996-27-76 01:37:76139Wdwpwbwh HermannCHEM PANEL 2016-11-29 01:37:009.5[facility] HermannCHEM GYUJK5167-14-60 01:37:009.5[facility] HermannCHEM SBOEO5756-31-00 01:37:008[facility] HermannCHEM NWMAF5471-08-93 01:37:000.7[facility] HermannCHEM YPFNV3219-39-17 01:37:21853Qwbinrpx HermannCHEM CYXVF7378-45-15 01:37:003.5[facility] HermannCHEM UVLBL6464-26-99 01:37:007.6 [facility] HermannCHEM OSCOY2686-53-82 01:37:0014[facility] HermannHEMATOLOGY 2016-11-29 01:10:0033.4[facility] GxhdtpvGGKYILDNVY3087-95-88 01:10:48838Kpzmvqyd KsqiadpAYTGTRDFHO9406-74-04 01:10:0014.7[facility] DwhfwirYWROUPCFHV8406-79-33 01:10:008.1[facility] KmkrrkcQIUKEDSGJM0005-25-92 01:10:005.34[facility] [place] WOCBGNGYZF9294-65-24 01:10:0015.5[facility] SgploeeBXMLFEKDGS9211-86-98 01:10:00 87.0[facility] FtousiqHOIJIUYSWW3116-22-14 01:10:0046.4[facility] HermannHEMATOLOGY 2016-11-29 01:10:00 Test Item Value Reference Range Interpretation Comments MCH (test code = MCH) 29.1 pg 27.0-31.0 [facility] WbqylufSHOFYPWQZE2028-51-28 01:10:008.0[facility] HermannHEMATOLOGY 2016-11-29 01:10:000.1[facility] EabvltoPIMLRVZEQG6563-10-75 01:10:002.0[facility] JrzdtcwGMCGXTUNXW9876-58-41 01:10:005.1[facility] CsihnqzCDLTBVVIFB7640-28-39 01:10:000.2[facility] ViaxxasGMLYTGOPKV4095-46-99 01:10:000.8[facility] [place] XWVOLCYFVD5396-64-86 01:10:0063.2[facility] ZtkpdjpFOOTMSLHWZ2905-00-16 01:10:00 24.3[facility] VetflomSXNIKREBCM2945-04-97 01:10:002.1[facility] HermannHEMATOLOGY 2016-11-29 01:10:009.6[facility] VcczhinGQHBXUAVMZ3299-68-07 01:10:000.8[facility] HermannVIRAL - OVABBBBW0272-95-45 01:10:00Negative (11/28/16 8:10 PM)[facility]annVIRAL - WKPTKDEW3496-87-14 01:10:00Negative (11/28/16 8:10 PM)[facility]annCARDIAC QNROVCR7363-67-06 01:15:001.3[facility]annCARDIAC ENZYMES 2016-11-07 01:15:00<0.02[facility]annCARDIAC XKQCOLW3224-89-31 01:15:001.9 [facility]annCARDIAC GVVEEUY5080-60-59 01:15:28678Mzgoicuf HermannCHEM PANEL 2016-11-07 01:15:0077[facility] HermannCHEM IOCYM1618-04-13 01:15:0017[facility] HermannCHEM EFRXA9995-33-39 01:15:006.8[facility] HermannCHEM EEHHU1559-81-13 01:15:008.5[facility] HermannCHEM WGFOA7480-49-25 01:15:000.8[facility] HermannCHEM NFDNZ3505-02-68 01:15:67287Uuvhrtzs HermannCHEM OZHEZ7511-73-97 01:15:0031 [facility]annCHEM ZGZNF1675-37-47 01:15:003.1[facility] HermannCHEM PANEL 2016-11-07 01:15:000.90[facility] HermannCHEM DKTAT9523-90-88 01:15:50440Qymsttqy HermannCHEM UOGBS4383-26-05 01:15:0012[facility] HermannCHEM LEDDN9834-15-79 01:15:0096[facility]annCHEM DERNP2382-62-97 01:15:003.3[facility] HermannCHEM ZJUPQ9892-04-24 01:15:0076[facility]annCHEM UIXKN9203-53-42 01:15:0020 [facility]annCHEM MFFVI6629-48-50 01:15:003.5[facility] HermannCHEM PANEL 2016-11-07 01:15:000.9[facility] HermannCHEM DVWIF8340-65-21 01:15:0010.1[facility] HermannCHEM UMBOE3486-04-91 01:15:0013[facility] TlaygeaVBQMPVHAUH6357-39-77 01:15:002.8[facility] XtewufuUMTQFNUAAF0047-61-95 01:15:000.2[facility] RAXPADDTDW4010-36-13 01:15:000.1[facility] PfaffyvCEAGVMXFQO4978-28-80 01:15:000.7 [facility] PexzjwnASPPLVTEFK3470-64-52 01:15:000.8[facility] HermannHEMATOLOGY 2016-11-07 01:15:004.5[facility] EvmelywXXRDSRWYJS7207-74-74 01:15:002.2[facility] LyyitceSBKLPMVPRO4181-51-05 01:15:0058.5[facility] EfwbalzUSXSDNSEBC8833-56-58 01:15:0028.8[facility] PhjplhtRRBUKJOFKG0552-32-62 01:15:009.1[facility] QMDYIONTHP9137-17-62 01:15:59652Wxaghhhp QyhaxrmSIEQUQITRK2695-35-57 01:15:00 14.3[facility] PzkxcxpNBRNQALBXH6479-19-17 01:15:008.1[facility] HermannHEMATOLOGY 2016-11-07 01:15:007.7[facility] HrokkcrRJUXDAZGDD6143-08-59 01:15:0013.1[facility] FfnzumxQXUWBEPATO2103-38-91 01:15:004.48[facility] HaafiklIBOFGMJMBW1029-97-55 01:15:00 Test Item Value Reference Range Interpretation Comments MCH (test code = MCH) 29.3 pg 27.0-31.0 [facility] YwhqtgxXWCPJRKJLB7703-70-08 01:15:0039.1[facility] HermannHEMATOLOGY 2016-11-07 01:15:0087.3[facility] XzfklhbPPFJFDGYWO6625-30-55 01:15:0033.6[facility] HermannDRUG BJTZFU3385-91-75 11:24:00Negative *NA*(10/11/16 5:24 AM)[facility] RPZBPT3882-27-40 11:24:00Negative *NA*(10/11/16 5:24 AM)[facility] DAFFWB2937-52-06 11:24:00Negative *NA*(10/11/16 5:24 AM)[facility] DQRUHR6876-92-79 11:24:00Negative *NA*(10/11/16 5:24 AM)[facility] WEAXXY1014-82-87 11:24:00Positive *ABN*(10/11/16 5:24 AM)[facility] GCUILC2466-84-29 11:24:00See Note (10/11/16 5:24 AM)[facility] HJZXDI7509-07-43 11:24:00Negative *NA*(10/11/16 5:24 AM)[facility] DTKZYT1745-70-06 11:24:00Negative *NA*(10/11/16 5:24 AM)[facility] QUHOHJA9924-65-61 09:58:00<0.02[facility] ZaknqxwEKMJTIYGUW5351-83-60 09:58:00 0.4[facility] KgwxnlyNILIGDRVED6564-49-55 09:58:000.1[facility]annHEMATOLOGY 2016-10-11 09:58:006.3[facility] WzfbucdFTEROQOPAH4588-68-68 09:58:001.0[facility] XltfnccBWKHAADYRB4690-42-86 09:58:002.7[facility] KmnqidgGUIQTWRIKC8777-52-51 09:58:002.1[facility] EszssqqEYPRDYJTHZ0317-62-73 09:58:000.6[facility] LCNCTYNIWY4767-27-13 09:58:0036.3[facility] XrlpcpaXIWUXRJQSW9631-52-71 09:58:00 46.0[facility] ZacysgvIMBDQEVKOD9428-47-72 09:58:0010.4[facility]annHEMATOLOGY 2016-10-11 09:58:008.7[facility] MvzlsusNZPGGQALFD4935-72-02 09:58:73976Gynueemy HtlldecMKYZOBMXEC0070-47-54 09:58:00 Test Item Value Reference Range Interpretation Comments MCH (test code = MCH) 29.3 pg 27.0-31.0 [facility] TaspibiFUJCLMYASX5472-23-09 09:58:0087.2[facility]annHEMATOLOGY 2016-10-11 09:58:0014.4[facility] SylabnuEGMPRLLMUI1357-98-81 09:58:0033.6[facility] AvkuqanAIOETAESRW8261-42-46 09:58:0013.1[facility] VojfixhTSELKLKYAM7758-45-68 09:58:004.45[facility] PxhewybOSIUXKRVPP7006-22-86 09:58:0038.8[facility] GEWNDLGXEF9438-65-44 09:58:005.8[facility] ViwtperWTEQVN6665-03-28 09:58:002.84 [facility] LjcyfexABTUCK5544-88-43 09:58:0014[facility] DzbffkgBZWJAN9856-31-20 09:58:0087[facility] XhjdtpuDWBQVT0318-92-91 09:58:0071[facility]annLIPIDS 2016-10-11 09:58:35134Giupqgao DszkqcjBNHOKM9241-46-54 09:58:0055[facility] ASZSWKS1851-24-20 00:00:00<0.02[facility] ENZYMES 2016-10-10 19:10:33<0.02[facility]annCHE[facility] EBCAK1121-87-00 19:10:3392 [facility] LRVQW9898-97-03 19:10:338[facility]annCHE[facility] PANEL 2016-10-10 19:10:330.78[facility]annCHE[facility] LOTHL4664-05-84 19:10:35257Vdresdff HermannCHEM WROPY5314-22-08 19:10:333.2[facility]annCHE[facility] UBTZH7219-46-63 19:10:339.3[facility]annCHE[facility] MUTOY5789-82-92 19:10:3331[facility]annCHE[facility] YGRAI8893-26-48 19:10:84132Kwxhfzst HermannCHEM XGTOM7821-88-31 19:10:24487 [facility] AODDY9915-39-53 19:10:337.2[facility]annHEMATOLOGY 2016-10-10 19:10:3333.8[facility] KbklgnlGMFGNMAMUO6022-82-61 19:10:3314.2[facility] QmntvonSTZESIAPDG7928-73-16 19:10:33 Test Item Value Reference Range Interpretation Comments MCH (test code = MCH) 29.4 pg 27.0-31.0 [facility] MivkpvrAMAOMOIFYJ0518-48-53 19:10:3387.0[facility]annHEMATOLOGY 2016-10-10 19:10:3313.5[facility] KzdnlkuEKGNLQMUVA1312-46-91 19:10:3339.8[facility] QrmpzclDWTJKXHDPY7125-35-64 19:10:96629Nvfkjknm SoelxswPOTTJEVWMY1293-83-38 19:10:338.7[facility] TonpcgxSYLCSWHIXV5991-00-43 19:10:336.6[facility] CDJMTDTOVO6584-95-71 19:10:334.58[facility] KatlydaRMBSJRQOEY3726-59-95 19:10:33 1.8[facility] CggldlqQAWTSNLRIJ7393-22-35 19:10:330.6[facility]annHEMATOLOGY 2016-10-10 19:10:330.3[facility] LqfzkvbAXROLGDRBT5914-31-95 19:10:330.6[facility] LxaucglVMIQSLQBCH8401-35-25 19:10:333.9[facility] TbnfzmdVXTXCRNAJX3811-44-31 19:10:339.0[facility] NawzqgvTLZSJLRMQE6944-16-03 19:10:334.1[facility] DPOAJWKLFL5391-36-56 19:10:3359.5[facility] OjexnofOYCYGEJAIT8460-92-56 19:10:33 26.8[facility]annCARDIAC RGVWYPZ9540-78-04 04:07:00<0.02[facility] IRIYLSUMFWDR7195-30-11 04:07:0013.5[facility] YzlfqfmHRZIJRVJDBON2326-91-50 04:07:0079[facility] KfeznppKRLFFYCABXYY0063-44-40 04:07:000.89[facility] VVZIMJPMFLIF7289-25-89 04:07:009[facility] FirhmzhDDVGAXYZGIAL2855-03-71 04:07:00 72[facility] SsksuxiDBKXNEWWZINT7101-79-45 04:07:45947Jghkvnmv HermannELECTROLYTES 2016-04-14 04:07:0025[facility] ZdhaxulNZSOYBPBERMD9978-16-18 04:07:008.9[facility] IbmjbevBXYXJWFRBGMT5593-05-81 04:07:56947Bvohmdpi NstftioQXHQVLTANPFB3148-14-68 04:07:003.5[facility] QlvpjtvVDWDMOXBZZ8019-74-32 04:07:53301Dsdbeqsi [facility] VTNLIQNRMP2355-21-23 04:07:008.5[facility] HczravvFXGBJYEHYG7080-18-89 04:07:00 33.5[facility] FuoktxcBRKKRGBWYX0954-79-58 04:07:00 Test Item Value Reference Range Interpretation Comments MCH (test code = MCH) 28.7 pg 27.0-31.0 [facility] WnrpdpbTEMJIYNMNP9154-11-94 04:07:0015.0[facility]annHEMATOLOGY 2016-04-14 04:07:0038.3[facility] UczpyhcLAUUMQDNMO5797-02-85 04:07:0085.6[facility] YlmvaedGTLFPVIDAT7760-55-52 04:07:0012.9[facility] EgaraisOIMFQXLAZM8082-12-44 04:07:004.48[facility] QfzkjmxAIYLLWIRXJ0548-07-36 04:07:005.6[facility] HDUXIXZWPE9062-70-92 04:07:000.1[facility] LxffuiqODDAAIWNDV7385-96-38 04:07:002.2 [facility] UiosrbjCTJZIVTYBR6266-62-69 04:07:000.3[facility]annHEMATOLOGY 2016-04-14 04:07:000.5[facility] SogpglwKNTLCVNMND5812-02-25 04:07:006.1[facility] SpiklkmFFKQJSOQHV2444-32-58 04:07:001.1[facility] EfkvmfjKRDVVTEONH8827-66-04 04:07:002.5[facility] HnmiccwATCXPOOKMO6139-55-45 04:07:0038.8[facility] QZEFQAOVKW4250-86-59 04:07:009.2[facility] MxsdmcgQYTTZDKBSI1254-41-00 04:07:00 44.8[facility] KmcywbpEKOLKZFCDQ6419-73-56 04:07:008[facility] HermannTOXICOLOGY 2016-04-14 04:07:000.008[facility]annCARDIAC PKTLMAY6151-09-96 11:47:00 <0.02[facility] FlvcplkDWPIME2333-68-61 11:47:003.39[facility] HermannLIPIDS 2016-03-12 11:47:0018[facility] LglrakpHOIHVW1260-13-76 11:47:0073[facility] ZLJIJY5941-03-59 11:47:0090[facility] TyxinqcJPAPJV9829-42-49 11:47:19739Zlnxrjsp UkkydyyGPGAXE0010-46-16 11:47:0038[facility]annSPECIAL BCUTKTIGV7464-09-28 11:47:005.9[facility]annCARDIAC HASWATI0639-97-77 02:33:0081[facility] CARDIAC HEDTSUT6167-77-82 02:33:000.02[facility]annCARDIAC ENHBKXP8225-74-70 02:33:001.6[facility]annCARDIAC XRKOQGB6298-08-15 02:33:001.3[facility] ECUNUMGMOX6265-61-99 21:03:00 Test Item Value Reference Range Interpretation Comments PROTIME (test code = PROTIME) 14.0 s 12.0-14.7 [facility] LtduscgOCUNTMSZJG2759-12-99 21:03:001.05[facility]annHEMATOLOGY 2016-03-11 21:03:00 Test Item Value Reference Range Interpretation Comments aPTT (test code = aPTT) 38.7 s 22.9-35.8 [facility] NgqtlotDSREITLKQA6415-13-50 21:03:000.49[facility]annCARDIAC ENZYMES 2016-03-11 20:14:001.6[facility] ZTZQFPF4966-03-98 20:14:001.3 [facility] LMJQMLU8532-04-53 20:14:00<0.02[facility] CARDIAC YVPIQFK4285-67-68 20:14:0083[facility]AC MJNZWBJ8714-37-26 20:14:0050[facility]annCHEM CYMZI3753-00-75 20:14:77011Jwvjehgy HermannCHEM YQZJO2734-68-25 20:14:84156Szkcnzbp HermannCHEM HKPPI8112-07-97 20:14:002.8 [facility]annCHE[facility] WWNZL3585-42-55 20:14:001.2[facility]annCHEM PANEL 2016-03-11 20:14:0015[facility]annCHEM WQFNH1084-33-07 20:14:0010.4[facility]annCHEM PAYWT4926-25-03 20:14:0014[facility]annCHE[facility] IJHUP9604-57-59 20:14:006.1[facility]annCHEM RVCCZ9385-95-86 20:14:000.5[facility]annCHE[facility] PIDVU2669-10-88 20:14:007.7[facility]annCHE[facility] MYRPT1416-47-95 20:14:0026 [facility]annCHE[facility] PVALQ1385-74-14 20:14:84088Zcwmobpz HermannCHEM PANEL 2016-03-11 20:14:003.4[facility]annCHEM FSYXV6868-18-61 20:14:80202Degxpwmj HermannCHEM SFQZJ0593-15-60 20:14:000.61[facility]annCHE[facility] QKPHT3128-68-41 20:14:009[facility]annCHE[facility] LPVOW8313-96-05 20:14:0076[facility]annCHE[facility] GLURG2089-02-47 20:14:0088[facility]annCHE[facility] UABEL8944-76-70 20:14:003.3 [facility]annCHE[facility] OJSEL9480-23-99 20:14:0015[facility]annHEMATOLOGY 2016-03-11 20:14:001.8[facility] CtzwillNZERQNHRBR3598-37-45 20:14:000.5[facility] JhldjldHOWSFTEYOJ6625-89-31 20:14:001.0[facility] PkqolncPERCFGCFAW6007-00-29 20:14:004.1[facility] EqqyfqpCXDCEYKBXZ2268-84-80 20:14:000.2[facility] HYGFAVJPKG6791-65-33 20:14:000.1[facility] XscksnwCTGLGVELRP9580-14-71 20:14:00 61.4[facility] CkqlahfWVTJVZUSHK8747-39-57 20:14:003.5[facility]annHEMATOLOGY 2016-03-11 20:14:0026.6[facility] KzbxaosRRUVLHYPOI0539-07-02 20:14:007.5[facility] VxcqtofIOHDANQYKH3473-89-08 20:14:006.7[facility] RwygedgMPHMYTAIPI3306-92-17 20:14:0012.2[facility] LdllqkrZWSDOQXPZX1327-46-28 20:14:004.26[facility] CSRDSJFOMW7534-58-43 20:14:00 Test Item Value Reference Range Interpretation Comments MCH (test code = MCH) 28.7 pg 27.0-31.0 [facility] WhzgsdmRHDGDQLJIA8427-59-38 20:14:0086.0[facility]annHEMATOLOGY 2016-03-11 20:14:0014.9[facility] XdlhavtJPKYXDHAVQ9238-71-10 20:14:0033.3[facility] JtewzyaHJFHHLDIIE6596-07-47 20:14:0036.6[facility] DqqykuwLLXXFZWTVT6546-12-71 20:14:008.7[facility] FlzuxodHIGGNQBYAY9011-33-60 20:14:73121Vkfuhuzf HermannURINE AND IWLIR0516-73-71 20:14:00Negative (03/11/16 3:14 PM)[facility] YCOSD6376-87-02 20:14:00Negative (03/11/16 3:14 PM)[facility] JGXDH2951-62-63 20:14:00Negative (03/11/16 3:14 PM)[facility] NFVEO2181-71-55 20:14:000.2[facility] LZKGP2241-75-01 20:14:00 Clear (03/11/16 3:14 PM)[facility] SJCBI0067-37-09 20:14:00 Negative (03/11/16 3:14 PM)[facility] IFCQC0734-95-66 20:14:00 <=1.005 *NA*(03/11/16 3:14 PM)[facility] ICKPE9392-79-80 20:14:00 Test Item Value Reference Range Interpretation Comments UA pH (test code = UA pH) 6.5 1 5.0-8.0 [facility] PMDZV2901-35-12 20:14:00Negative *NA*(03/11/16 3:14 PM) [facility] VXPJJ7893-72-44 20:14:00Negative *NA*(03/11/16 3:14 PM) [facility] FTGSM0341-46-43 20:14:00Negative (03/11/16 3:14 PM) [facility] BNBMP2159-60-19 20:14:00Yellow *NA*(03/11/16 3:14 PM) [facility] IRZPW0324-22-97 00:22:00Yellow *NA*(02/29/16 7:22 PM) [facility] SBJRM1110-19-37 00:22:00 Test Item Value Reference Range Interpretation Comments UA pH (test code = UA pH) 6.0 1 5.0-8.0 [facility] DBGZG3163-42-08 00:22:00Clear (02/29/16 7:22 PM)[facility] FMTKA6209-62-04 00:22:00 Test Item Value Reference Range Interpretation Comments UA Spec Grav (test code = UA Spec 1.015 1 Grav) [facility] VJUYD4922-73-84 00:22:00Trace *ABN*(02/29/16 7:22 PM) [facility] BHSVJ4446-36-68 00:22:00None Seen (02/29/16 7:22 PM) [facility] MPMEJ2863-60-42 00:22:00Negative (02/29/16 7:22 PM) [facility] FSUIO2028-26-74 00:22:001.0[facility] GTWFG7639-20-51 00:22:00Negative (02/29/16 7:22 PM)[facility] STOOL 2016-03-01 00:22:00Negative (02/29/16 7:22 PM)[facility] STOOL 2016-03-01 00:22:00Negative *NA*(02/29/16 7:22 PM)[facility] STOOL 2016-03-01 00:22:00Negative *NA*(02/29/16 7:22 PM)[facility] STOOL 2016-03-01 00:22:00Negative (02/29/16 7:22 PM)[facility]annCARDIAC ENZYMES 2016-02-29 23:14:00<0.02[facility]annC[facility]IAC ZFQWMFJ4532-21-26 23:14:001.1 [facility] OYAQKKQ9356-51-78 23:14:49472Rqxqkaxz [facility]annCARDIAC EPTQDNA5477-87-36 23:14:007[facility] DDFHSPQ9232-33-89 23:14:000.8 [facility]CHE[facility] SNGXM7873-95-84 23:14:0080[facility]annCHEM PANEL 2016-02-29 23:14:0013[facility]annCHE[facility] DSUIE6869-41-07 23:14:001.0[facility]annCHE[facility] QVFUX6539-07-63 23:14:003.6[facility]annCHE[facility] ARWPK1346-39-17 23:14:009[facility]CHE[facility] GKTZB1949-62-03 23:14:007.1[facility]annCHE[facility] CDUPN1951-04-01 23:14:0010.0[facility]annCHE[facility] SYRBK0995-07-96 23:14:65139 [facility]CHE[facility] IGEWX9126-97-63 23:14:003.0[facility]annCHE[facility] PANEL 2016-02-29 23:14:000.88[facility]annCHE[facility] PWKVM5195-99-41 23:14:0030[facility]CHE[facility] XOHFN5354-48-57 23:14:000.6[facility]annCHE[facility] RACFS4056-49-71 23:14:008.7[facility]annCHE[facility] NIAUG6292-54-79 23:14:23709Zitxjnzw HermannCHEM JYFCL2208-26-23 23:14:0015[facility]annCHE[facility] JTHKS8233-74-55 23:14:0088 [facility]CHE[facility] FAVHL8677-54-58 23:14:003.5[facility]annCHEM PANEL 2016-02-29 23:14:008[facility]annCHE[facility] CONHC7230-22-45 23:14:0089[facility] ErqmocmDXHYUHMQRM3162-55-69 23:14:00 Test Item Value Reference Range Interpretation Comments PROTIME (test code = PROTIME) 13.2 s 12.0-14.7 [facility] RhmlovaQXMIZGFRDG8456-52-64 23:14:000.97[facility]annHEMATOLOGY 2016-02-29 23:14:0015.3[facility] CdsbzbfXWMKBSOTDL3129-51-13 23:14:0032.9[facility] EdrtreyMRBLTATIKD5349-70-63 23:14:0043.8[facility] IvercwoWFFZZRPUDU5144-89-40 23:14:00 Test Item Value Reference Range Interpretation Comments MCH (test code = MCH) 28.1 pg 27.0-31.0 [facility] ToylgcdWVLRUGHBXP8165-19-73 23:14:0085.5[facility]annHEMATOLOGY 2016-02-29 23:14:005.3[facility] YtfvovqJNNFEEMNHB2333-36-17 23:14:0014.4[facility] JpjuodfBUEXDSZZLQ0704-25-95 23:14:005.12[facility] EmawricSEJXOKESSC2772-38-51 23:14:22971Syddydtg MqbvfkgNDZJYOFQWT5473-55-02 23:14:008.1[facility] ABLTRUOYFM0116-86-01 23:14:0057.2[facility] FrmpplzNVNTAIOHUZ9556-80-65 23:14:00 11.7[facility] DpvlpzeVRUQNVLTJA4813-88-46 23:14:0024.1[facility]annHEMATOLOGY 2016-02-29 23:14:000.1[facility] JdrpgdyKJTQKBCLVQ2961-31-49 23:14:000.6[facility] RfmlluvJUSLFRTQNX9687-55-56 23:14:001.3[facility] JbbtnwkYVKPAKPAJR8113-32-95 23:14:000.3[facility] KgbbgyfZYBBKYFGVO8028-92-31 23:14:003.0[facility] IWTNGVYKBS7899-89-86 23:14:005.9[facility] IdmmtndRVXOXRRNIS2215-40-56 23:14:001.1 [facility]annCARDIAC VSVUECI6599-28-20 17:04:000.7[facility]annC[facility]IAC GBIHBKZ8002-77-32 17:04:000.7[facility]annC[facility]IAC HOMQTOV7269-33-61 17:04:00 <0.02[facility]annCARDIAC ZJGSSOD5990-59-27 17:04:0097[facility] BMGGHYUXAPHK3020-72-89 17:04:0018.3[facility] GmduakwZMFJHUVTKYXR8389-74-71 17:04:0078[facility] JckrpzmFQURSOECKGNC3156-30-33 17:04:53949Lauojesu [place] SLPFOSNWEIHO3219-97-79 17:04:0010[facility] HarwgcvUBKXUVEUOKJF7874-77-40 17:04:00 0.90[facility] IbgkjkaQXSJAYRZVQKM8062-06-98 17:04:0020[facility] MOZLCAVUORSV5190-05-80 17:04:009.4[facility] JfriwgfMHRMSKLXQYLX8504-12-42 17:04:004.3[facility] ZukszehBFAJEFJWZOYE0698-62-45 17:04:26021Njzwjsws [facility] SQBOFILZJWFN3723-05-05 17:04:08545Wtnqbzom SaizhryRBCRUYDIEM0737-86-60 17:04:00 9.6[facility] LpylhcdIQOFPSCECR5995-97-72 17:04:0041.4[facility]annHEMATOLOGY 2015-09-04 17:04:0013.1[facility] GdqmjvhRRVVQVPUHB5923-01-61 17:04:004.74[facility] RftxycqKTEWATIGXQ0624-07-12 17:04:0087.3[facility] TidrpgiVGSFZRGOFD5941-88-07 17:04:0031.5[facility] YvpihkoSSITSSGJQT6028-48-98 17:04:00 Test Item Value Reference Range Interpretation Comments MCH (test code = MCH) 27.5 pg 27.0-31.0 [facility] HiealmvGDNTTJFBHY6758-68-39 17:04:008.7[facility]annHEMATOLOGY 2015-09-04 17:04:76985Ntwmjkxj KoezkdhTEQMFARMII4709-02-35 17:04:0014.4[facility] MciymjtGVYWKXHQBU4369-46-24 17:04:000.1[facility] OaygvfdJQKKNWZAYB6090-99-76 17:04:000.5[facility] MesmajqCVKKNTLGMG1566-40-02 17:04:00Normal (09/04/15 11:04 AM) [facility] DkhsumwTPPQKAKZUQ0923-52-20 17:04:00Normal (09/04/15 11:04 AM)[facility] CnnafsnLQDVCOCBHR1033-38-71 17:04:0093.3[facility] TiizqtpQFGBHPRBXA2353-23-13 17:04:000.2[facility] PlyclepDFYAWEGUWY7905-20-87 17:04:005.4[facility] IKZRCINTXK0800-60-77 17:04:001.1[facility] WvzwsraCNBBBFWYVO9888-94-13 17:04:009.0 [facility] XdwqqsvZWTLMZ4387-10-51 17:04:0014[facility] PzgyojyPBMULD2081-53-43 17:04:71487Jhdgqlti UnelddfISCAJK3790-17-27 17:04:0054[facility] HermannLIPIDS 2015-09-04 17:04:0071[facility] ZkxzswmMCWHNM8982-94-07 17:04:53546Wagxbonr DdfbjfmNQRWID5060-68-03 17:04:003.67[facility]annCARDIAC KEXELSK8695-22-43 10:50:000.6[facility]annCARDIAC XMCGFZT7100-98-98 10:50:000.6[facility] CARDIAC DFPBEUE9970-66-66 10:50:00<0.02[facility]annCARDIAC ENZYMES 2015-09-04 10:50:27117Mbczgosx HermannCARDIAC JRGKRRU4146-98-62 04:33:67186 [facility]annC[facility]AC LDAWATD1576-46-92 04:33:00<0.02[facility] CARDIAC TURQHIL0232-19-56 04:33:000.8[facility]annCARDIAC GBREINU9883-85-85 04:33:000.7[facility] HermannCHEM HCPIX9133-84-11 04:33:0087[facility] HermannCHEM QNPBI2943-49-70 04:33:008[facility]annCHEM POJGL4376-33-03 04:33:000.82 [facility]annCHEM NBQXF3004-12-46 04:33:06416Hmbsuaiy HermannCHEM PANEL 2015-09-04 04:33:32481Dawjwihq HermannCHEM MWUVL4891-09-31 04:33:003.9[facility]annCHEM VDRNV3763-68-80 04:33:91506Yweicuis HermannCHEM HJPBP6386-49-42 04:33:0013.9[facility] HermannCHEM FHJVA1494-87-57 04:33:009.2[facility] HermannCHEM JPGVU4770-21-13 04:33:0025[facility] TqdpcmjRMSYSLQNEO4842-60-37 04:33:007.4 [facility] AwqtdbyFMHEUFDJRT8450-81-02 04:33:0012.4[facility] HermannHEMATOLOGY 2015-09-04 04:33:004.57[facility] GijjnrmADNNGOEUIR0906-72-90 04:33:0039.4[facility] ZocdxciISWOTXVVAS7030-25-23 04:33:0086.1[facility] CpbifenFACEVCDVZJ4387-86-24 04:33:0014.7[facility] TvugzarCAOYWJPRVN5444-25-97 04:33:0031.6[facility] FSQHPAFBEJ7398-49-81 04:33:00 Test Item Value Reference Range Interpretation Comments MCH (test code = MCH) 27.2 pg 27.0-31.0 [facility] VfxdlybBTUNKPFJUB9290-99-78 04:33:008.3[facility]annHEMATOLOGY 2015-09-04 04:33:78575Ztxaljjh YtclajnALORPIBKEU8915-89-37 04:33:005.5[facility] PtzyjyoWGQFWARTTG0192-82-66 04:33:006.5[facility] GttejwhLJCWXVFSMR0287-19-85 04:33:0031.7[facility] QylodybXTLDRAOWUF0040-63-65 04:33:0055.0[facility] EZHBNUCYRI5243-84-22 04:33:000.5[facility] UzkihucNLGXGKODJW7431-85-26 04:33:002.3 [facility] FrxisoqMONGDPXUAE4771-28-77 04:33:004.0[facility]annHEMATOLOGY 2015-09-04 04:33:001.3[facility] WuxsqxxNHKZEKWFRZ6010-10-06 04:33:000.1[facility] TsjnclzGAXPFJSFZJ5342-39-50 04:33:000.4[facility]annCARDIAC NYEWRLL1873-18-16 10:25:00<0.02[facility]annCARDIAC SNHZWPW0172-30-30 10:25:0075[facility]annC[facility]AC FFPYAGP3389-96-49 10:25:000.9[facility]annC[facility]AC ENZYMES 2015-07-16 10:25:001.2[facility] HermannCHEM DQMWQ5652-54-21 10:25:57431Knlkczbx HermannCHEM WERDD1710-51-33 10:25:000.6[facility]annCHEM IVQEJ4234-55-83 10:25:003.1[facility]annCHEM TNGDK4935-59-21 10:25:009.0[facility]annCHEM ADXKX5569-10-72 10:25:006.3[facility]annCHEM VVJEX6745-08-97 10:25:0014 [facility]annCHE[facility] XCEVE5862-09-21 10:25:0089[facility]annCHEM PANEL 2015-07-16 10:25:0019[facility]annCHEM MLULS9669-74-61 10:25:0025[facility]annCHEM JQAPX0595-57-77 10:25:004.2[facility]annCHEM CQYUS4323-05-64 10:25:93480Cwtoqydt HermannCHEM YATEK3825-06-74 10:25:0014[facility]annCHEM MQSDU8878-05-47 10:25:000.70[facility]annCHEM OCVNI5379-37-80 10:25:99391 [facility]CHE[facility] DRCKQ9889-20-17 10:25:0078[facility]annCHEM PANEL 2015-07-16 10:25:0020[facility]annCHE[facility] QMQLM3034-01-88 10:25:0010.2[facility]annCHEM CXIEP2092-06-18 10:25:001.0[facility]annCHEM OICCR4068-85-24 10:25:003.2[facility] KrmcekaCHCAMSHSSK5207-23-54 10:25:008.6[facility] PQTJPINHHU0165-23-50 10:25:16311Glmnoyqi UytnieeIUKBFPUHDK1949-50-38 10:25:00 14.3[facility] YtcqujyLCDMASIKIL0135-31-56 10:25:004.53[facility]annHEMATOLOGY 2015-07-16 10:25:005.5[facility] XvxwnfgKILPYVNHKY5972-87-30 10:25:00 Test Item Value Reference Range Interpretation Comments MCH (test code = MCH) 27.9 pg 27.0-31.0 [facility] TxetjxnVFNODBNOPI4455-22-69 10:25:0031.5[facility]annHEMATOLOGY 2015-07-16 10:25:0088.6[facility] QqejjfePSAOYKBONV0646-65-88 10:25:0040.2[facility] QystjcqUBLUJLVYEJ9947-16-42 10:25:0012.6[facility] ZepvzunFPMUXONHVK5410-18-31 10:25:000.2[facility] RpldyonRSRBIVHHIJ9049-12-19 10:25:002.0[facility] SRXGAEUQSI0675-92-29 10:25:000.9[facility] YmzdatwFAKXMNPGFQ2639-40-98 10:25:000.6 [facility] SghzllmBCVLRNKMKV4805-17-25 10:25:002.6[facility]annHEMATOLOGY 2015-07-16 10:25:0011.0[facility] KxawyieRCDUEMBZAN7906-32-64 10:25:004.0[facility] TosaexaRUVXWQZYSA8384-10-06 10:25:0036.1[facility] QbqxcyrBVHTFIPAXR7594-72-73 10:25:0048.0[facility] VrxdghlMXOGKVZQNW6095-86-45 10:25:000.1[facility] CARDIAC IYAWABC1030-50-99 04:22:00<0.02[facility]annCARDIAC ENZYMES 2015-07-16 04:22:0088[facility]annCARDIAC OWSLDSF4380-57-70 04:22:001.1 [facility]annC[facility]AC UARYUDT3115-60-52 04:22:001.0[facility]annCARDIAC TBQKNQM8293-42-31 21:33:00<0.02[facility]annCARDIAC GVFABBA5828-20-64 21:33:001.2[facility]annCARDIAC FDHIUJT4827-41-80 21:33:33057Namenrnr Maciej CARDIAC FFKMBYZ2917-83-89 21:33:001.2[facility]annCHEM KPVSJ3348-56-84 21:33:0090[facility]annCHEM ROZCL4221-37-64 21:33:0091[facility]annCHEM QDHHD4223-18-02 21:33:0019[facility]annCHEM UKYYJ2283-91-11 21:33:0017 [facility]annCHE[facility] QKPSK3304-90-05 21:33:0012[facility]annCHEM PANEL 2015-07-15 21:33:000.8[facility] HermannCHEM ASDTP0015-79-77 21:33:0011.1[facility]annCHEM ZRYKU3119-73-92 21:33:003.5[facility]annCHEM UOMGW5727-27-40 21:33:0027[facility]annCHEM ODKGX0654-92-30 21:33:006.8[facility]annCHEM HIRWJ6396-49-78 21:33:008.7[facility]annCHEM PSDAU3931-14-17 21:33:003.3 [facility]annCHE[facility] FGOIJ5925-17-84 21:33:001.1[facility]annCHEM PANEL 2015-07-15 21:33:000.80[facility]annCHEM MMJCO0999-43-17 21:33:16618Dyralpio HermannCHEM GQHAQ8777-98-49 21:33:50136Rhayruep HermannCHEM DOSHO6174-93-65 21:33:004.1[facility]annCHEM GXLVE0946-85-43 21:33:0010[facility]annCHEM TZFMM0231-82-57 21:33:0072[facility] GsxgmlgIRKLOZTMNL7473-01-92 21:33:003.3 [facility] YyrjskwDLZOFLRTKL7827-47-37 21:33:000.2[facility]annHEMATOLOGY 2015-07-15 21:33:000.6[facility] BhsbdufALVUCEAHSQ9761-77-02 21:33:002.3[facility] UrfqedzUORYUYXPZF4609-32-21 21:33:0051.8[facility] FcszxkaSMRKHFCNJL5662-44-40 21:33:000.6[facility] IatsimdBHVVVLXODC4753-55-93 21:33:003.1[facility] AMPTLTRIRZ6275-79-79 21:33:009.4[facility] CagraztNVIBOADTPP1602-58-44 21:33:00 35.1[facility] OnrbmiqFQCSUHMJCV3631-76-71 21:33:000.0[facility]annHEMATOLOGY 2015-07-15 21:33:009.1[facility] AaarnlqZBKDFWBNLR5594-23-96 21:33:0087.6[facility] HwggbweLAWMFKGCGR5320-21-53 21:33:0012.9[facility] WvqjsdaEXKMEJBEJO8775-91-26 21:33:0039.8[facility] BphmrwlCDWBWUTIEN2759-19-47 21:33:0032.3[facility] TPPKWVYFXZ3901-47-68 21:33:0014.8[facility] VcrdlbcVDDABQPEUM6182-71-57 21:33:00 Test Item Value Reference Range Interpretation Comments MCH (test code = MCH) 28.3 pg 27.0-31.0 [facility] SgjdhvoQIFAWXIKZU1759-92-61 21:33:73515Mojgucca HermannHEMATOLOGY 2015-07-15 21:33:004.54[facility] VyxafsnLPBMRYPUWB9902-07-21 21:33:006.4[facility] EccvcnjKCKQULSRZI1715-44-70 19:18:00Negative (05/18/15 2:18 PM)[facility] CARDIAC GEACJKV3433-99-45 18:26:00<0.02[facility] HermannCHEM UGHFK4427-80-84 18:26:000.1[facility]annCHEM YBJKJ4693-49-36 18:26:003.9[facility] HermannCHEM KUIHB5474-14-23 18:26:01198Keltfkiv HermannCHEM CEIDT1514-96-48 18:26:000.5 [facility]annCHEM HGUIQ2324-87-40 18:26:0022[facility]annCHEM PANEL 2015-05-18 18:26:0018[facility] HermannCHEM QHAOH2603-00-98 18:26:007.9[facility] HermannCHEM HLYJQ6658-84-39 18:26:004.0[facility]annCHEM ADTRR0221-80-07 18:26:000.4[facility] HermannCHEM REDZX4494-27-34 18:26:001.0[facility]annCHEM NLZLD6646-49-82 18:26:17787Pghnacfs HermannCHEM JMZJL3515-04-48 18:26:0078 [facility]annCHEM OEWRK5397-77-17 18:26:17882Frpehlgp HermannCHEM PANEL 2015-05-18 18:26:003.9[facility] HermannCHEM ZMJKP4518-26-20 18:26:000.9[facility] HermannCHEM LNHJL8054-87-21 18:26:0087[facility] HermannCHEM PNZFY7192-42-59 18:26:007[facility]annCHEM GHKTO0579-07-76 18:26:38276Wajidtms HermannCHEM WYJFQ9344-45-68 18:26:0028[facility]annCHEM TCKSC6574-39-20 18:26:0010.2 [facility]annCHEM ROINE7750-72-13 18:26:0010.9[facility]annHEMATOLOGY 2015-05-18 18:26:0014.2[facility] RlejibkTICCBXXLWB6471-29-99 18:26:004.96[facility] HowvnnaNPOQUIVCOZ6537-01-81 18:26:00 Test Item Value Reference Range Interpretation Comments MCH (test code = MCH) 28.7 pg 27.0-31.0 [facility] UdgaocrDOSCAWNQJQ9007-64-60 18:26:0032.9[facility]annHEMATOLOGY 2015-05-18 18:26:0043.3[facility] QvnopvjBSTQZMARZD6565-40-26 18:26:0087.2[facility] NsicfpqPTDZRJEXNS5309-24-50 18:26:006.8[facility] KuvscejGBKSSGLWKD0986-36-50 18:26:67976Tbhetcsl IjggtlqZMBOZNYGPO6811-84-39 18:26:008.2[facility] MWACVVBXJL7553-52-92 18:26:0014.5[facility] JkxuxvsMWTOSGQRLL7107-03-60 18:26:00 55.6[facility] KkbmzpxYMYJWAFVXH1564-17-12 18:26:0032.7[facility] HermannHEMATOLOGY 2015-05-18 18:26:008.5[facility] WykunpuRMIIOWSWXE8244-36-94 18:26:003.8[facility] YnxylduOPYOXTXHXQ7124-04-71 18:26:000.6[facility] GwnzanrBDZDOBEYIY0671-47-38 18:26:002.2[facility] WrxoffaAWSNAMHULC8354-36-99 18:26:002.6[facility] SXFRZBZOFA0326-65-44 18:26:000.2[facility] XjmqfmtSNMCVDKXBF9248-10-47 18:26:000.6 [facility] MukndpuLXEKCDBMLE4171-98-68 18:26:00Positive *NA*(05/18/15 1:26 PM) [facility] WhsvhbeFLIAAXUUDN9054-68-77 18:26:43982232Ycqhhscq HermannIMMUNOLOGY 2015-05-18 18:26:005.5[facility] HermannCARDIAC QVVOQAT5532-00-56 18:51:00<0.02 [facility]annCHEM OFXAO5769-47-77 18:51:0090[facility] HermannCHEM PANEL 2015-05-09 18:51:0028[facility] HermannCHEM JSQDF3992-26-38 18:51:009.6[facility] HermannCHEM ESPFB3409-69-56 18:51:45011Udvtsotw HermannCHEM MENWY1955-83-40 18:51:000.8[facility] HermannCHEM YMLOJ8670-14-02 18:51:56576Hhgsnpcy HermannCHEM VOXHI5967-87-61 18:51:003.7[facility] HermannCHEM FNRHW8513-47-35 18:51:73680 [facility]annCHEM TGXFJ6192-81-23 18:51:007[facility] HermannCHEM PANEL 2015-05-09 18:51:009.7[facility] NjfeuoxLPEIYBISKV7761-39-74 18:51:0014.4[facility] ObjelmxAJPGZQHHBK1566-08-01 18:51:0032.5[facility] BhyftusBJIZNQDTAS2120-69-50 18:51:00 Test Item Value Reference Range Interpretation Comments MCH (test code = MCH) 28.7 pg 27.0-31.0 [facility] CqulqsgAZTJDUUKPM5885-33-13 18:51:23457Pjyvzpma HermannHEMATOLOGY 2015-05-09 18:51:007.6[facility] ThnpyadWRULCHQLAZ6203-03-95 18:51:0088.2[facility] XvdwqqzXRHDNBXBGE2696-73-05 18:51:0041.9[facility] BfwmgwwASEUSRPSCX8985-02-87 18:51:004.75[facility] XekoyfbBTSQKTXDYN5335-48-32 18:51:0013.6[facility] TOEVDCNKVV2226-69-81 18:51:005.6[facility] KfmmljwSRCVRBLCAN6561-94-28 18:51:002.1 [facility] XyqfsjfQNUEJQTUFK0124-54-19 18:51:000.1[facility] HermannHEMATOLOGY 2015-05-09 18:51:000.2[facility] GonnglhLERNNTAJVE4428-11-13 18:51:000.4[facility] GtlxbufYNSJOOVQIC1456-29-66 18:51:0050.8[facility] QpdcoecFLCVRAOCBB7235-61-29 18:51:002.8[facility] FcrcusbUIWHMVMNKF1220-43-00 18:51:002.9[facility] HVMZUNJRTO9758-47-66 18:51:001.1[facility] MaagsqpCPUBRYJRMM2116-58-87 18:51:007.7 [facility] CqyfgqbZDMZIFHKKC6140-05-28 18:51:0037.6[facility] HermannCARDIAC ENZYMES 2015-05-02 22:03:00<0.02[facility] HermannCHEM ZECYO7840-28-89 22:03:003.2 [facility]annCHEM URVRV3401-81-48 22:03:002.1[facility] HermannELECTROLYTES 2015-05-02 22:03:0012.4[facility] LlxqlozOVAKKWTHNOYO6512-83-71 22:03:0068[facility] XtmoelwFJLXUZMXKZPN5290-28-33 22:03:99023Bekyuzek EqteckrRNCKCBBHQOVX1224-07-44 22:03:00514Bfdohmqv LznbixvNNOQCECXITQK3596-11-59 22:03:0028[facility] MNTYSPNIOPPJ1725-40-84 22:03:008.8[facility] PagnwywKEEYCJPWUZAN7438-22-04 22:03:003.4[facility] LklatpnCTDJFMUMYMAB4968-60-06 22:03:000.9[facility] SAVSVTSXFJLW4425-47-26 22:03:0092[facility] GlcgbawXEKNRSVGRHUY9704-60-80 22:03:00 6[facility] BtaxxgsXCOBXRVVCI6366-20-54 22:03:008.0[facility] HermannHEMATOLOGY 2015-05-02 22:03:0014.1[facility] UzxvzysBUSAWENZMP5662-75-10 22:03:21271Bwxbpmhj BjcgshbEHJIZDINMH3458-76-03 22:03:0032.6[facility] JdgmsrkVEPWMKIVQW2466-05-48 22:03:008.0[facility] LefzlhzZVPZWQZCPS5908-29-56 22:03:0040.2[facility] CRTPWAFLGI1605-23-14 22:03:0087.4[facility] XrdijwcKTGOESWRLQ4508-47-35 22:03:00 13.1[facility] NrkhbbkSVTSPXMWUI7638-25-06 22:03:004.60[facility] HermannHEMATOLOGY 2015-05-02 22:03:00 Test Item Value Reference Range Interpretation Comments MCH (test code = MCH) 28.5 pg 27.0-31.0 [facility] YaejhcbWXIRUIRRBW9093-59-69 22:03:0026.3[facility] HermannHEMATOLOGY 2015-05-02 22:03:0060.9[facility] YaotwktDVVFORKEXL5875-33-22 22:03:001.0[facility] LuqhrikCDQNFCWPOD7666-00-79 22:03:003.0[facility] VlylgoqFNINXJCDRQ2370-85-21 22:03:008.8[facility] BlvqyemKOMFAOKHVV3487-31-69 22:03:000.7[facility] EASVHMIZZW7904-33-89 22:03:000.2[facility] PensynzEGNJZQWAMY0858-27-90 22:03:002.1 [facility] CqarjlcDWWPLMUGOI5295-71-20 22:03:004.9[facility] HermannHEMATOLOGY 2015-05-02 22:03:000.1[facility]annUR[facility] AND JYHMU3282-45-53 21:38:00Negative (05/02/15 4:38 PM)[facility] ZTUQU8216-10-80 21:38:00Moderate *ABN*(05/02/15 4:38 PM)[facility] XANPU4357-53-72 21:38:00None Seen (05/02/15 4:38 PM)[facility] SICPH9514-34-71 21:38:00None Seen (05/02/15 4:38 PM)[facility] TPWWP0901-58-74 21:38:00Negative (05/02/15 4:38 PM)[facility] XCBBP6970-02-76 21:38:00Negative *NA*(05/02/15 4:38 PM)[facility] UXNZY2728-50-05 21:38:000.2 [facility] ENBUC1631-98-43 21:38:00Negative (05/02/15 4:38 PM) [facility] DAVSP7390-57-70 21:38:00Negative *NA*(05/02/15 4:38 PM) [facility] KDAAO7560-47-64 21:38:00Yellow *NA*(05/02/15 4:38 PM) [facility] VUCPZ0390-19-14 21:38:00 Test Item Value Reference Range Interpretation Comments UA pH (test code = UA pH) 6.0 1 5.0-8.0 [facility] HTFFZ7868-39-10 21:38:00Slight Cloudy (05/02/15 4:38 PM) [facility] COTPQ1423-58-39 21:38:00Negative (05/02/15 4:38 PM) [facility] AZYWZ9249-46-02 21:38:00 Test Item Value Reference Range Interpretation Comments UA Spec Grav (test code = UA Spec 1.006 1 Grav) [facility]annCHEM YMFQK6432-43-94 09:28:83052Sqqnfiyq HermannCHEM PANEL 2015-03-24 09:28:00570Hmwzcbcp HermannCHEM KRLYL7864-78-38 09:28:000.7[facility] HermannCHEM WQYKV1233-37-75 09:28:004[facility]annCHEM WYAKR2964-67-64 09:28:003.2[facility] HermannCHEM ZQIWM8952-92-62 09:28:30655Bxyajjlg HermannCHEM MLNTN3422-85-29 09:28:0091[facility]annCHEM VRQFJ8875-26-82 09:28:003.5 [facility]annCHEM VTZED1330-09-37 09:28:006.6[facility] HermannCHEM PANEL 2015-03-24 09:28:87859Jqwmswoo HermannCHEM UHTUU3102-63-85 09:28:009.1[facility] HermannCHEM WTYSO4809-71-59 09:28:0027[facility]annCHEM ULNML2669-95-19 09:28:0011.2[facility] HermannCHEM XQXLJ6013-84-69 09:28:0021[facility]annCHEM YZIIY8001-99-16 09:28:0034[facility]annCHEM ZRMAT2834-45-66 09:28:000.6 [facility]annCHEM VRPAT4495-88-02 09:28:0095[facility] HermannCHEM PANEL 2015-03-24 09:28:006[facility] HermannCHEM UKYHU0249-20-04 09:28:001.1[facility] HermannCHEM NHCWH4196-41-71 09:28:003.1[facility] JkqxihbTXXVFXWAAQ4614-44-28 09:28:0011.3[facility] TuxstemNXVQRIPJPA9393-49-28 09:28:0027.1[facility] MLVVTZFUOQ4107-93-78 09:28:005.9[facility] KxqnxdeAGGNENZDQP8945-26-44 09:28:003.3 [facility] SfkbviaLZHXYWACGB0279-80-90 09:28:000.7[facility] HermannHEMATOLOGY 2015-03-24 09:28:0055.0[facility] GcehjuaVPYCZRHTJI2080-95-42 09:28:000.7[facility] GqruxuyCTHIYXDAOX4584-73-74 09:28:001.6[facility] TxdanhcQSRWVACVDA1341-01-23 09:28:000.4[facility] ZkzqflaATAHMZYSZO2748-64-48 09:28:004.21[facility] LGAIJLJPKC7905-93-79 09:28:005.9[facility] WvrvmhtRICJBBFPWB1045-39-74 09:28:11749 [facility] VbwfmxpTBUIQUTGSX8298-24-20 09:28:0032.4[facility] HermannHEMATOLOGY 2015-03-24 09:28:0014.2[facility] TptiithVMHDHPGFYE2313-15-47 09:28:008.6[facility] DuzvtryHATXBVDYWK9939-44-99 09:28:0037.2[facility] PdojdcrMRNYLUFDSF8060-34-36 09:28:0088.3[facility] ZlelzckRKHVHWLRIZ0478-53-50 09:28:0012.1[facility] RAGPTOCHOF6935-52-13 09:28:00 Test Item Value Reference Range Interpretation Comments MCH (test code = MCH) 28.6 pg 27.0-31.0 [facility] PBOOH3113-84-26 18:14:00Negative (03/23/15 1:14 PM) [facility]annCARDIAC FQGSNFD3277-05-40 10:51:000.8[facility] HermannCARDIAC HKWERJA6948-71-16 10:51:0070[facility]annCARDIAC FJZXTPX9348-43-71 10:51:00 1.1[facility] HermannCHEM VTHYR5939-92-76 10:51:90008Ovwkhmvf HermannCHEM PANEL 2015-03-23 10:51:0027[facility] HermannCHEM UHKSK1946-74-46 10:51:009.2[facility] HermannCHEM LNFKT0299-90-39 10:51:61850Ygafntrt HermannCHEM YAJZL4604-46-19 10:51:15379Ckxzrsjl HermannCHEM UHALM6944-88-26 10:51:003.5[facility] HermannCHEM LUGGJ8966-13-87 10:51:000.7[facility] HermannCHEM MRLHV0816-18-45 10:51:008 [facility]annCHEM BHJUR1080-92-42 10:51:02252Ruinmqzg HermannCHEM PANEL 2015-03-23 10:51:0010.5[facility] BzfymtpEOFFTZYKFW1399-61-04 10:51:001.3[facility] TzaidxdYIZKDKIMDB8917-82-06 10:51:003.4[facility] QgjomhnVXGHDVUTTL7259-93-38 10:51:000.6[facility] KjqmbffXRLDJPXXHZ0823-78-53 10:51:004.0[facility] JPEXDFZYQD0771-40-63 10:51:000.2[facility] BsybwjzNFVQOPELTE2990-57-08 10:51:000.6 [facility] XllmehtYGCJVJKYVT2085-74-91 10:51:0011.0[facility] HermannHEMATOLOGY 2015-03-23 10:51:0023.6[facility] BkewvavDUUJURAHSU3822-22-68 10:51:0060.8[facility] GezueffJLFYBOZZCJ3159-55-84 10:51:008.3[facility] ZancoetJMXGXETDFX2486-82-43 10:51:10337Glckkzex DgipawlTXVRXWWBLQ4961-76-53 10:51:0014.6[facility] SEIBHNUJCQ0481-95-05 10:51:0088.0[facility] XfwmpvlRZUGAAJXLA3375-07-90 10:51:00 Test Item Value Reference Range Interpretation Comments MCH (test code = MCH) 28.7 pg 27.0-31.0 [facility] QohkswfNJWUAOXFXE4597-57-23 10:51:0034.7[facility] HermannHEMATOLOGY 2015-03-23 10:51:0032.6[facility] NkctdfyHPZFSPRGKT2835-17-30 10:51:0011.3[facility] PllddlkOMAXDZFKPN2801-79-23 10:51:003.94[facility] TwvyycyGUSQEFQCKU7758-01-67 10:51:005.6[facility] HermannCARDIAC BSDEDJH2948-52-10 10:19:001.6[facility] CARDIAC RGRUVFF1958-43-96 10:19:001.0[facility] HermannCARDIAC MUOASXK4717-10-60 10:19:0064[facility] HermannCHEM KJHXP2841-53-51 10:19:41243Tybnftxo HermannCHEM NRHRW8284-67-81 10:19:008.7[facility] HermannCHEM QUHOO9812-99-70 10:19:29418 [facility]annCHEM IGMUT9482-36-00 10:19:003.9[facility] HermannCHEM PANEL 2015-03-22 10:19:36081Pkbnipdp HermannCHEM IGSGV0556-71-92 10:19:0027[facility] HermannCHEM GGUWS6376-46-52 10:19:0094[facility] HermannCHEM JWSNH5459-97-83 10:19:008[facility] HermannCHEM LUPTO3733-05-59 10:19:000.6[facility] HermannCHEM OXDAP5068-74-09 10:19:008.9[facility] RkwzseyLJFCBWMBUE8239-69-50 10:19:000.2 [facility] UsgkvjaIWPMOOUAYB6554-09-44 10:19:000.5[facility] HermannHEMATOLOGY 2015-03-22 10:19:000.9[facility] TtrfojoLPETRJNMZY6937-70-80 10:19:0011.2[facility] QljiywgYWPLIYKLIP3139-29-46 10:19:002.1[facility] HfaekwkQBYWUKDJVD1373-91-10 10:19:003.7[facility] HemreczVGIGVPMEPQ7917-37-74 10:19:001.6[facility] UKQBFYCXUX6916-31-96 10:19:0048.6[facility] VhuvjjcNKZJYLMBZN2654-64-32 10:19:00 35.6[facility] WooqpemLJEZKBZZVE4627-77-46 10:19:008.9[facility] HermannHEMATOLOGY 2015-03-22 10:19:004.4[facility] EqqcmapJKXAVTFYCD7666-80-44 10:19:00 Test Item Value Reference Range Interpretation Comments MCH (test code = MCH) 29.9 pg 27.0-31.0 [facility] QdgtnzhOCQPYIDYWB0161-36-51 10:19:0086.5[facility] HermannHEMATOLOGY 2015-03-22 10:19:0034.6[facility] UrgbgbbXOOMBTSPVJ4748-54-03 10:19:0011.7[facility] HjvmwzaYVHRDRKYGZ0929-77-35 10:19:003.92[facility] KzmeowiJSVKZCXPTG0856-77-70 10:19:0033.9[facility] McyjoicICNTXPKKBT7627-71-09 10:19:0014.6[facility] DPPLTWMESN8135-74-46 10:19:78576Aefgjmhp HermannCARDIAC KUMXEYH4382-84-80 03:22:001.6[facility] HermannCARDIAC WZSJWFG9072-02-12 03:22:0077[facility] CARDIAC NERBPTN1344-81-12 03:22:001.2[facility] HermannCHEM LSCEX0889-93-42 02:44:001.4[facility] HermannCARDIAC EHRFABC1791-63-79 21:13:00<0.02[facility] HermannCHEM FFFVA2692-81-26 21:13:003.3[facility] HermannCHEM MLLMA1344-70-36 21:13:001.1[facility] HermannCHEM FSJZC2371-66-30 21:13:0016[facility] HermannCHEM LJDXV9361-09-85 21:13:57799Xedjhehw HermannCHEM GBNNU0561-44-15 21:13:0025 [facility]annCHEM VQZMD3244-36-69 21:13:000.5[facility] HermannCHEM PANEL 2015-03-21 21:13:0032[facility] HermannCHEM TQNAW1514-14-93 21:13:003.7[facility] HermannCHEM WTSOQ2942-24-71 21:13:007.0[facility] IzbhsshNGZBADECVF8471-07-12 21:13:000.0[facility] WhrpyyeZSLWSYPELY3331-42-25 21:13:001.04[facility] PNTTFEJBVZ9145-11-85 21:13:00 Test Item Value Reference Range Interpretation Comments PT (test code = PT) 13.6 s 12.0-14.7 [facility] RaxtvbbYIEVPBAZGR6385-29-57 21:13:00 Test Item Value Reference Range Interpretation Comments PTT (test code = PTT) 35.2 s 22.9-35.8 [facility]annCARDIAC YUDHNLY5239-90-76 21:10:006[facility]annCARDIAC SHTBSJI8930-17-86 21:02:00<0.02[facility]annCARDIAC RGPLQDC8484-89-31 21:02:0031[facility]annCARDIAC SSQPQII6298-76-15 21:02:000.8[facility] CARDIAC PRBQTED4078-82-56 21:02:0070[facility]annCARDIAC XKFTTGG8011-71-69 21:02:001.1[facility] HermannCHEM DTIKT3578-78-56 21:02:40386Getgvmtp HermannCHEM NIDJN2610-57-31 21:02:0099[facility] HermannCHEM UJMGW5848-58-46 21:02:000.6 [facility]annCHEM JJQVK5542-46-06 21:02:0011[facility] HermannCHEM PANEL 2015-03-11 21:02:009.4[facility] HermannCHEM GQBCW0467-94-44 21:02:003.1[facility] HermannCHEM VOVMW9429-73-91 21:02:001.1[facility] HermannCHEM IHAVO7660-31-29 21:02:0073[facility]annCHEM GVFEE2270-60-86 21:02:008[facility] HermannCHEM DCZNK0117-01-71 21:02:000.7[facility]annCHEM ETFXV3059-68-87 21:02:77038 [facility]annCHEM AARIB4294-16-85 21:02:003.4[facility] HermannCHEM PANEL 2015-03-11 21:02:0028[facility] HermannCHEM ZZUEX5625-74-34 21:02:78955Bqijntde HermannCHEM AXHVA8077-29-68 21:02:008.9[facility] HermannCHEM GSGGP2102-56-26 21:02:006.5[facility]annCHEM KFTBC9056-65-69 21:02:003.4[facility] HermannCHEM ZHNZO1158-57-29 21:02:0030[facility]annCHEM HPQYC2767-19-23 21:02:0021 [facility] MltwnznAZNMOEATYR3405-35-73 21:02:0015.1[facility] HermannHEMATOLOGY 2015-03-11 21:02:0033.1[facility] BsafsdqRMHLEUJQOT4132-00-59 21:02:64406Waabaylg DtrrhvzCCUCFDVFRF6953-76-31 21:02:008.1[facility] QrexumgKZVJODQNCK0058-02-70 21:02:0034.6[facility] OkpqldkCUBYTCEHMX3094-70-46 21:02:0011.5[facility] PDDPDQNMTZ0413-73-53 21:02:00 Test Item Value Reference Range Interpretation Comments MCH (test code = MCH) 28.8 pg 27.0-31.0 [facility] AzfzniyTJJBPXCTTM6236-36-73 21:02:0086.9[facility] HermannHEMATOLOGY 2015-03-11 21:02:003.98[facility] VsekugaTWZEQCFGIP1614-69-34 21:02:006.5[facility] ZzbnotqDTNQTFVEDO9434-61-11 21:02:00 Test Item Value Reference Range Interpretation Comments PTT (test code = PTT) 32.8 s 22.9-35.8 [facility] NhltcszILHEFSXCGJ0855-94-35 21:02:00 Test Item Value Reference Range Interpretation Comments PT (test code = PT) 13.3 s 12.0-14.7 [facility] QjsppjzVWNASSTMAM9078-27-37 21:02:001.01[facility] HermannHEMATOLOGY 2015-03-11 21:02:000.0[facility] LxzftdpUYLKDFCXJD1804-90-07 21:02:003.7[facility] LmajpqeISWPJQEASC3936-12-15 21:02:000.2[facility] MafeenlAMABBEBQUU2675-33-97 21:02:000.6[facility] DmiggltJMFXVUWXZQ1606-90-69 21:02:001.9[facility] KJKJWABQJB3888-84-74 21:02:0056.9[facility] DmhfpeaPQHJCRSUZQ6706-97-05 21:02:00 2.7[facility] WlmiujfGFICDSCEHZ4417-15-00 21:02:000.4[facility] HermannHEMATOLOGY 2015-03-11 21:02:009.9[facility] XfcultwPWFUWACORT7594-02-93 21:02:0030.1[facility] HermannCARDIAC RNGIHZF3686-07-93 09:33:00<0.02[facility]annCARDIAC ENZYMES 2015-03-05 06:16:00<0.02[facility] HermannCHEM TKJUN0373-43-13 06:16:001.1 [facility]annCHEM HTMIO5153-57-85 06:16:003.5[facility] HermannCHEM PANEL 2015-03-05 06:16:000.5[facility] HermannCHEM EIBJH5933-36-36 06:16:000.1[facility] HermannCHEM WFMXP9722-94-68 06:16:0025[facility] HermannCHEM XQBVW2984-20-76 06:16:0021[facility] HermannCHEM QDIQI0261-81-84 06:16:003.7[facility] HermannCHEM UJXXO0458-74-19 06:16:15931Hqwgtbpd HermannCHEM KPMLW8990-39-34 06:16:000.6 [facility]annCHEM KSUEE5415-25-01 06:16:007.2[facility] HermannCHEM PANEL 2015-03-05 06:16:45646Quumcloi QfsconoFEGKLAFTCLCA2244-27-51 06:16:0012.6 [facility] RjhsbvoLHKTTUJYQEIF2112-08-72 06:16:0078[facility] HermannELECTROLYTES 2015-03-05 06:16:009.6[facility] VjlldphYNSIMJULOVFC7080-07-03 06:16:0029[facility] PnwfjnqZPRJHYOKQQJM0345-31-08 06:16:003.6[facility] PzgynmwBSFXBGYQXQOG5463-99-03 06:16:76909Tkgpxgcd SkdqfwzWDYYTAEPSUOY4676-97-36 06:16:64017Gbryqqcd [place] NVWIFUNEELSA9535-89-13 06:16:000.8[facility] UzzyvixHAGNBBMVVZDR9082-95-43 06:16:009[facility] SsiwtcoRIHSJPJYIIEH6391-39-17 06:16:0096[facility] LOMCOWWNHA0717-80-71 06:16:002.6[facility] OtasalzBDUDBAUTRB7267-59-44 06:16:000.9 [facility] LfoovglEIJMKKZYJL6044-92-00 06:16:000.7[facility] HermannHEMATOLOGY 2015-03-05 06:16:001.7[facility] CxicfypTYFIKMUHBH0301-85-18 06:16:006.7[facility] UpkumogIVQLDMTWKM8989-71-05 06:16:0025.0[facility] VctzarrCDVJOSFOQS0090-88-86 06:16:0064.3[facility] ExseekkBQEPCPXECW1900-53-24 06:16:008.3[facility] FUMAGSEQOE6393-14-06 06:16:000.2[facility] AlfjomsRNIZNFOWMZ7810-56-96 06:16:000.1 [facility] DdmggbkTVRDZEHGHI6853-31-78 06:16:0087.7[facility] HermannHEMATOLOGY 2015-03-05 06:16:0039.7[facility] LgtdklrFEWSFANUSO3679-97-41 06:16:008.0[facility] CuhrjnrPJZIXGIITO3331-44-09 06:16:48358Bssdlgzm OpguwjmWPTEONPCEX3513-54-90 06:16:0014.6[facility] XculnzcAVZYJIJQOW4543-52-03 06:16:0032.4[facility] KQDIMHJRUY4487-93-48 06:16:00 Test Item Value Reference Range Interpretation Comments MCH (test code = MCH) 28.4 pg 27.0-31.0 [facility] BnuyvcsCAWPZGIYTY7766-69-51 06:16:0010.5[facility] HermannHEMATOLOGY 2015-03-05 06:16:004.53[facility] BgdydlqGBMVLSDGSO0646-15-63 06:16:0012.9[facility] HermannCHEM EERSF4220-44-55 09:16:002.0[facility] HermannCHEM BYUYN2522-37-16 09:16:003.6[facility] HermannCHEM CMPNX9005-34-28 09:16:42741Fimncfme HermannCHEM GXNQI0524-08-98 09:16:0017[facility] HermannCHEM TGDQI1206-72-65 09:16:003.3 [facility]annCHEM LQZIY7235-09-48 09:16:001.1[facility] HermannCHEM PANEL 2015-02-25 09:16:006.3[facility] HermannCHEM PENKO5451-92-50 09:16:0021[facility] HermannCHEM RVWIA5579-38-89 09:16:003.0[facility] HermannCHEM NBGFV5972-39-64 09:16:000.5[facility] HermannCHEM FAMNB6377-62-71 09:16:22792Cfdweubr HermannCHEM JGPVF6232-03-54 09:16:0011[facility] HermannCHEM BAOXB9111-52-08 09:16:009.1 [facility]annCHEM HRXPZ1864-80-51 09:16:0099[facility] HermannCHEM PANEL 2015-02-25 09:16:008[facility] HermannCHEM IYCRZ4200-87-49 09:16:37336Cmpzgqko HermannCHEM FGKMG4219-75-53 09:16:000.7[facility] HermannCHEM XYTMI5955-84-08 09:16:008.9[facility] HermannCHEM VANWZ1606-15-95 09:16:50925Wnrqeebo HermannCHEM VKLCV1295-17-54 09:16:0028[facility] HermannCHEM IUNHW5336-69-14 09:16:003.9 [facility] KwljzibOHVFFIEGQS1025-58-18 09:16:04724Dgspaltu HermannHEMATOLOGY 2015-02-25 09:16:008.8[facility] AnfmuxfSESTYGHARH7215-91-12 09:16:0014.9[facility] HpfgoirVPAYDWMQET2934-80-21 09:16:005.9[facility] ZvitzbvFRWWRIHDTS5804-28-60 09:16:0088.4[facility] HnlgisxNQNMKNPDKW1293-82-78 09:16:0037.2[facility] KYMNOFBHQY4100-16-78 09:16:00 Test Item Value Reference Range Interpretation Comments MCH (test code = MCH) 28.6 pg 27.0-31.0 [facility] MjearnaFYQJMKVJDF1477-56-54 09:16:0032.4[facility] HermannHEMATOLOGY 2015-02-25 09:16:004.21[facility] FswdzwfQBTMHUJMUU1205-76-69 09:16:0012.0[facility] DcgzspaJSTGVHWSCP8431-31-75 09:16:0031.9[facility] VfjveopSBSIDTWSMO0973-06-04 09:16:000.8[facility] SvbyulaRIPKTHXZZR5681-55-63 09:16:003.1[facility] EJGNVQDFMX0724-09-15 09:16:0011.6[facility] AcyryznAXIWJYMIOB8156-95-60 09:16:00 2.9[facility] IujhvtqJCFDACBCFI5821-17-88 09:16:0052.8[facility] HermannHEMATOLOGY 2015-02-25 09:16:000.7[facility] CocfjqlNZPLKJUDQC2658-07-32 09:16:001.9[facility] RlyzntoKJYBVZKNKL1573-32-71 09:16:000.2[facility] HermannCARDIAC NOXFLBX9598-28-68 04:30:0074[facility]annCARDIAC WGVIWEK0375-00-12 04:30:001.2[facility] CARDIAC NYZRMFW8868-94-15 04:30:00<0.02[facility] HermannCARDIAC ENZYMES 2015-02-25 04:30:000.9[facility] HermannCARDIAC HZKKYWA6197-90-00 23:29:00<0.02 [facility]annCARDIAC BLNOJDY9198-45-73 23:29:000.7[facility]annCARDIAC NNYRBQG7169-44-69 23:29:0068[facility]annCARDIAC QAWHAHY4073-97-72 23:29:00 1.0[facility]annCARDIAC HCTJTDO0942-35-78 17:33:000.9[facility]annCARDIAC KQQFVBQ4254-66-53 17:33:00<0.02[facility]annCARDIAC LGVKOTK8622-32-66 17:33:000.7[facility] HermannCARDIAC QCCGXEQ1471-78-75 17:33:0076[facility] CHEM IUDPY4617-57-53 17:33:0090[facility] HermannCHEM RRUKF2476-34-45 17:33:003.1 [facility]annCHEM MAPOC6718-82-80 17:33:66672Ekecqjsr HermannCHEM PANEL 2015-02-24 17:33:000.3[facility] HermannCHEM NTYVW9921-54-37 17:33:001.1[facility] HermannCHEM YGQQI2189-80-72 17:33:007.3[facility] HermannCHEM VVHFQ5210-76-11 17:33:0012[facility] HermannCHEM LETZO4401-14-79 17:33:000.8[facility] HermannCHEM KSBVX8468-84-19 17:33:02097Bukxuhwh HermannCHEM DZSAW6019-43-50 17:33:0088 [facility]annCHEM FADWR5944-98-23 17:33:003.3[facility] HermannCHEM PANEL 2015-02-24 17:33:69794Yigyqunf HermannCHEM RPAVS2752-16-43 17:33:0010[facility] HermannCHEM PBFRV0633-59-95 17:33:0015[facility] HermannCHEM IWCLE5849-14-29 17:33:0022[facility] HermannCHEM FMNFM5833-04-43 17:33:008.9[facility] HermannCHEM IDCWH7443-04-11 17:33:0030[facility] HermannCHEM GCBKD2953-34-29 17:33:006.6 [facility]annCHEM FKIZZ9581-76-99 17:33:003.5[facility] HermannHEMATOLOGY 2015-02-24 17:33:0055.9[facility] LfygvrnQLNNVXWDXO1423-69-99 17:33:0028.7[facility] RkohqejKBIZSMUERT3414-68-86 17:33:003.7[facility] FskigatXMMXXZQWXU6370-41-45 17:33:000.7[facility] KybckwoCXXLNSINTL3866-45-87 17:33:001.9[facility] QYBEZXGFOL5010-27-29 17:33:002.2[facility] EeutsndWJIDUWDUAB4553-89-09 17:33:00 12.5[facility] TfcxbqiIHPVJMPFPC8756-01-61 17:33:000.0[facility] HermannHEMATOLOGY 2015-02-24 17:33:000.1[facility] FzwhjfmQZTDVYAKNH3922-68-46 17:33:000.8[facility] GupadgrKFXKDPQFZO2546-05-56 17:33:008.8[facility] IjqcweaNRYBQKEDOS5804-46-46 17:33:00 Test Item Value Reference Range Interpretation Comments MCH (test code = MCH) 28.1 pg 27.0-31.0 [facility] NgimmhgYOOYTPHTQQ3531-57-90 17:33:0014.8[facility] HermannHEMATOLOGY 2015-02-24 17:33:0032.2[facility] NkxmokpYUSWBUYSMR1296-09-14 17:33:65682Kxgnlkyt EpcitnuHKVRBCKHDP8396-23-86 17:33:0011.4[facility] WxeprxdQUANVAFUYN6283-47-98 17:33:004.04[facility] SumjpkpZMPDBBAJMS1007-04-88 17:33:006.5[facility] DEEIQOUMSM4524-21-37 17:33:0035.3[facility] HslzcwbENLSZGESYU2840-41-75 17:33:00 87.2[facility] HermannCARDIAC OFVPOWO0998-52-57 09:54:006[facility]annCARDIAC WJZQGHG1591-25-03 09:54:00<0.02[facility] HermannCARDIAC QZIUGDX2001-96-81 09:54:001.0[facility] HermannCARDIAC CVSJZNZ5581-64-25 09:54:0077[facility] CHEM YDFBC3164-05-35 09:54:001.8[facility] HermannCHEM BQYKY1401-30-86 09:54:22955 [facility]annCHEM KRDEI6995-96-92 09:54:51919Ouhlhvsm HermannCHEM PANEL 2015-02-17 09:54:003.8[facility] HermannCHEM KOGXF5967-11-14 09:54:36324Ifssjgkw HermannCHEM SWTSF2506-32-50 09:54:008.6[facility] HermannCHEM BYOIT0713-42-57 09:54:0011.8[facility] HermannCHEM DLXPI5565-29-91 09:54:0025[facility] HermannCHEM KQUDV2654-80-39 09:54:000.6[facility] HermannCHEM NFKPV5772-21-77 09:54:006 [facility]annCHEM XICTJ7871-73-84 09:54:0072[facility] HermannHEMATOLOGY 2015-02-17 09:54:0011.5[facility] GmcidnwDZIVFZ0993-51-86 09:54:0051[facility] UuowkvgXRWLND2306-73-86 09:54:0017[facility] RgtqnqdHZTKHD4064-54-64 09:54:0096 [facility] XnysgzqJAODML1095-86-05 09:54:30166Ktcjpjml ZvnwiuxMYPLMR2217-88-09 09:54:0084[facility] WhuigmkCGUAUD0120-15-16 09:54:003.22[facility] HermannSPECIAL AYDPDJANO2773-76-15 09:54:005.8[facility] HermannCARDIAC IXEGYEV1526-51-58 04:20:00<0.02[facility] HermannCARDIAC JRBGOGT8073-41-98 04:20:0092[facility] HermannCARDIAC NEPVOBL3968-95-50 04:20:001.2[facility] HermannCARDIAC ENZYMES 2015-02-16 22:59:001.2[facility] HermannCARDIAC CMFJVFD7826-32-33 22:59:001.3 [facility]annCARDIAC PRZUQWI8501-09-30 22:59:0093[facility] HermannCARDIAC PSXSXHP9961-04-25 22:59:00<0.02[facility] HermannCARDIAC NKQKQWA6278-13-07 22:59:004[facility] HermannCHEM ZKPSL8817-70-03 22:59:25937Setvrfvm HermannCHEM KHDCI0180-08-12 22:59:001.0[facility] HermannCHEM MAZYQ3028-90-61 22:59:003.6 [facility] HermannCHEM KSLUA7468-93-24 22:59:000.4[facility] HermannCHEM PANEL 2015-02-16 22:59:000.1[facility] HermannCHEM SJTFP8729-13-73 22:59:000.5[facility] HermannCHEM CNKLS6194-67-95 22:59:007.3[facility] HermannCHEM UAGOG3061-91-19 22:59:52258Rkrqsdyz HermannCHEM FDLFJ3282-71-77 22:59:0015[facility] HermannCHEM QPWEG4062-91-63 22:59:0021[facility] HermannCHEM WTKCL8893-13-87 22:59:003.7 [facility] HermannCHEM JOIEX3884-98-19 22:59:003.1[facility] HermannCHEM PANEL 2015-02-16 22:59:001.9[facility] HermannCHEM XUFWP9642-55-78 22:59:0090[facility] HermannCHEM NTWWK7514-13-88 22:59:009.0[facility] HermannCHEM SJTOS9436-17-48 22:59:0028[facility] HermannCHEM HNRGZ1284-31-63 22:59:04016Ufvbbdnb HermannCHEM GXSCG2833-71-95 22:59:000.8[facility] HermannCHEM OPJXM6212-17-50 22:59:0011 [facility] HermannCHEM LIHOC1643-09-01 22:59:003.5[facility] HermannCHEM PANEL 2015-02-16 22:59:40905Rcjrotco HermannCHEM KXWVI2375-33-80 22:59:0076[facility] HermannCHEM KBXOA8714-13-40 22:59:007.5[facility] HbcckawFDUCPDSNDY7783-97-50 22:59:003.3[facility] UpwdyboEPCWFWNUZJ1132-19-75 22:59:009.1[facility] BIHLTSZTSL6329-14-16 22:59:0028.9[facility] VkuldpxIZLXXHWQVO0602-72-06 22:59:00 58.3[facility] XsrqwowTJYVBJNRPT8957-75-27 22:59:003.8[facility] HermannHEMATOLOGY 2015-02-16 22:59:000.4[facility] PyabggnKKONKDIGVE6134-24-76 22:59:000.6[facility] PevwdgrUYRWTEZOBZ5078-88-32 22:59:001.9[facility] EkybhrwNUTEUQRTGA9311-59-43 22:59:000.2[facility] FcqfkdnBRTJRXJZUI1808-79-67 22:59:000.0[facility] VPXUIJFNBK6090-49-23 22:59:00 Test Item Value Reference Range Interpretation Comments PTT (test code = PTT) 36.0 s 22.9-35.8 [facility] HgxxikxVYWGXZCSIW8769-53-13 22:59:00 Test Item Value Reference Range Interpretation Comments PT (test code = PT) 12.9 s 12.0-14.7 [facility] BxbflkeYBZXREXJZY3245-62-12 22:59:000.97[facility]annHEMATOLOGY 2015-02-16 22:59:15590Pwahjimo MfpihmvKMABQUHHDQ2766-44-69 22:59:0014.7[facility] RazmqzmUAKUIONPOG4588-28-74 22:59:008.7[facility] XwoinlwUSKZSHEAPD4754-61-35 22:59:0032.6[facility] SvsngjbBECIKPXZFO7608-81-74 22:59:0039.5[facility] SEYEGNCZMK0015-52-82 22:59:0087.3[facility] UkfxvdhOJGDSZTDSA0238-22-53 22:59:00 Test Item Value Reference Range Interpretation Comments MCH (test code = MCH) 28.4 pg 27.0-31.0 [facility] XgwbphnDZUTHRKMBS2055-44-53 22:59:004.52[facility]annHEMATOLOGY 2015-02-16 22:59:0012.9[facility] TxopvueMFHPOUOVZO5736-27-47 22:59:006.5[facility] PabmtntKFDHWLXWA3262-62-91 22:59:0046[facility]annCARDIAC TWUJCEF3222-03-37 21:17:0015[facility]annCARDIAC AQJCQGL1003-33-60 21:17:00<0.02[facility]annCARDIAC XKYRPRC4810-10-25 21:17:0080[facility]annCARDIAC ENZYMES 2013-12-22 21:17:00<0.5[facility]annCARDIAC VLEMRGW8044-94-43 21:17:00 <0.6[facility] HermannCHEM REKJH6191-60-50 21:17:74419Gmghmbmr HermannCHEM RHWCW8589-64-68 21:17:003.6[facility] HermannCHEM EBUEJ0962-36-23 21:17:0017 [facility]annCHEM SZVKY1372-60-12 21:17:001.1[facility]annCHEM PANEL 2013-12-22 21:17:26006Pketjgus HermannCHEM NZJCY0598-43-07 21:17:0034[facility]annCHEM MENSG0921-77-52 21:17:003.9[facility]annCHEM LPUCT2884-59-18 21:17:0089[facility]annCHEM FJQGV6196-90-30 21:17:0022[facility]annCHEM VACDF7578-93-60 21:17:000.6[facility]annCHEM WLCXO9857-56-93 21:17:005.5 [facility]annCHEM RRSEM9256-49-18 21:17:000.6[facility]annCHEM PANEL 2013-12-22 21:17:0010[facility]annCHEM ZCJLB5731-26-26 21:17:003.5[facility] HermannCHEM KMIXB0741-57-89 21:17:67094Geqnonxv HermannCHEM GAXAA0343-72-52 21:17:57106Oaudonku HermannCHEM GWAEK1142-10-76 21:17:0029[facility]annCHEM RVFLH4490-28-26 21:17:007.5[facility]annCHEM PYLBQ4644-03-64 21:17:009.2 [facility]annDR[facility] ARJJLY6647-75-56 21:17:00Negative *NA*(12/22/13 4:17 PM) [facility] HVBOFF4804-73-22 21:17:00Negative *NA*(12/22/13 4:17 PM) [facility] SMGBNC5641-67-04 21:17:00See Note 4*NA*(12/22/13 4:17 PM) [facility] LTVRAU7097-28-15 21:17:00Negative *NA*(12/22/13 4:17 PM) [facility] XHZZBS4176-22-38 21:17:00Negative *NA*(12/22/13 4:17 PM) [facility] OPGVAB2941-23-35 21:17:00Negative *NA*(12/22/13 4:17 PM) [facility] HCFKXT6006-30-21 21:17:00Negative *NA*(12/22/13 4:17 PM) [facility] ROTSFA6204-45-89 21:17:00Negative *NA*(12/22/13 4:17 PM) [facility] SkqvvqqIUKUYPYUYW3577-21-47 21:17:00 Test Item Value Reference Range Interpretation Comments PTT (test code = PTT) 35.2 s 22.9-35.8 [facility] XwwghyzQEPWJQLSOR2101-44-56 21:17:00 Test Item Value Reference Range Interpretation Comments PT (test code = PT) 12.2 s 12.0-14.7 [facility] TcnarjfJZPQOPSBVE8315-00-45 21:17:000.91[facility]annHEMATOLOGY 2013-12-22 21:17:008.4[facility] KevbrdyKAGBNWNSYS0527-52-85 21:17:00 Test Item Value Reference Range Interpretation Comments MCH (test code = MCH) 29.2 pg 27.0-31.0 [facility] WbwkxiqXJLOLJPOMG0229-70-21 21:17:0033.4[facility]annHEMATOLOGY 2013-12-22 21:17:0014.5[facility] KbumbmyCSZKGVOOAA8503-35-77 21:17:89325Mdfstobz ErotzggCPALXUWTEK1151-54-57 21:17:0041.6[facility] ElrpqtvTTCNQLIHZN0384-78-54 21:17:0087.5[facility] EtcelknQERJQJKZAE3669-57-24 21:17:004.76[facility] HXSOJTEAOH0934-87-16 21:17:0013.9[facility] IhgsconBZQTTGZOAJ0442-87-18 21:17:00 8.5[facility] LsmwlcbNXGCCDYTII7231-11-49 21:17:000.2[facility]annHEMATOLOGY 2013-12-22 21:17:000.0[facility] PbgnhuoLGXKBNQCLQ5136-86-81 21:17:0066.1[facility] GekersbSLUCYRLHDM5649-22-02 21:17:006.1[facility] PghfupfOYPDQFYJKD0109-03-10 21:17:0025.0[facility] WnuqizxVKBPFNUOPN3861-08-91 21:17:002.4[facility] MMWHABSNYK5644-31-17 21:17:000.4[facility] EfnbpgeTXFIZVVRYS5588-56-64 21:17:002.1 [facility] PzwfsayMXKJGGYAFU6159-56-64 21:17:000.5[facility]annHEMATOLOGY 2013-12-22 21:17:005.6[facility]annURINE AND LWDWZ9780-67-56 21:17:00Trace *ABN*(12/22/13 4:17 PM)[facility] FYUHV9737-05-81 21:17:00Negative *NA*(12/22/13 4:17 PM)[facility] BQSGG2083-00-46 21:17:000.2 [facility] VDLQH7335-40-74 21:17:00Small *ABN*(12/22/13 4:17 PM) [facility] DXNGY4169-47-51 21:17:00Negative *NA*(12/22/13 4:17 PM) [facility] DZGZJ4166-43-48 21:17:00Negative (12/22/13 4:17 PM) [facility] EOFPA4546-90-74 21:17:00Clear (12/22/13 4:17 PM) [facility] ASNAZ2061-55-68 21:17:00Yellow *NA*(12/22/13 4:17 PM) [facility] CUXUB1864-79-40 21:17:00 Test Item Value Reference Range Interpretation Comments UA pH (test code = UA pH) 6.0 1 5.0-8.0 [facility] WJCZO7232-68-09 21:17:00 Test Item Value Reference Range Interpretation Comments UA Spec Grav (test code = UA Spec 1.015 1 Grav) [facility] WAPBB8938-44-98 21:17:00Negative (12/22/13 4:17 PM) [facility] MWQIL2055-10-63 21:17:00Negative (12/22/13 4:17 PM) [facility]annCHEM SGYOJ8262-46-94 15:55:312.7[facility] HermannCHEM PANEL 2013-12-17 15:55:312.2[facility] LmmedxvWGXNHJSCAHAM1954-20-76 15:55:3110.5 [facility] YgitmuxMNGIZUYWOQAS9221-38-59 15:55:3191[facility] HermannELECTROLYTES 2013-12-17 15:55:3110[facility] SurwrrjCKENQAZYWKZE2187-39-61 15:55:310.8[facility] JanbcwrZPVBYKYGOALI9175-34-73 15:55:30084Faibpvip PajkvktZFXRDOEUXXPK5940-58-54 15:55:3187[facility] MupmsarLHNRDHMAHVEX9909-23-19 15:55:3130[facility] AGCROWIZGMNS3610-18-39 15:55:314.5[facility] ZvsuzueHELIHJWWIMGL5820-26-93 15:55:94076Irmrbgnh MpxuypxSTOHVYKIGBYR7673-15-49 15:55:318.6[facility] GAFTVHNFIK7584-83-96 15:55:310.97[facility] FabwrhuBZFYVEJZGN2716-05-14 15:55:31 Test Item Value Reference Range Interpretation Comments PTT (test code = PTT) 32.4 s 22.9-35.8 [facility] MitzqmhXJCOIBVUZA7488-84-03 15:55:31 Test Item Value Reference Range Interpretation Comments PT (test code = PT) 12.8 s 12.0-14.7 [facility] GhbgimzLZCMCJZAXU4547-42-79 15:55:3113.7[facility] HermannHEMATOLOGY 2013-12-17 15:55:314.88[facility] FsdiwbrBRYWQFBRED0863-50-52 15:55:31 Test Item Value Reference Range Interpretation Comments MCH (test code = MCH) 28.1 pg 27.0-31.0 [facility] PyynfiyVWBWQVDQOO0010-71-76 15:55:3142.1[facility] HermannHEMATOLOGY 2013-12-17 15:55:3186.4[facility] TptwagvHKTMRRDFJH5504-58-71 15:55:3114.3[facility] RsugwkkPTKXJMLNTF3376-56-16 15:55:3132.5[facility] DdjbnenZIBRUHYHGK5958-61-62 15:55:318.4[facility] PibeufaNKVNCISYXE2355-64-79 15:55:67356Lkeglzgo [place] KVSPZWACYY9346-83-48 15:55:317.2[facility] RiapjwtSLZSTBAPER4714-06-32 15:55:31 10.7[facility] KgieuodPPOHNPPYIE9428-43-08 15:55:3127.2[facility] HermannHEMATOLOGY 2013-12-17 15:55:311.9[facility] CzixcjuDYYARAWWUL8336-16-79 15:55:313.2[facility] HlhrrycTOIDFHXPOB3739-23-18 15:55:310.6[facility] RqqmkqnEBNLWGYBKT9847-71-40 15:55:314.2[facility] JfgblqvQLLOAQTUIQ9002-83-25 15:55:310.2[facility] PWMFKYLFMV1556-59-33 15:55:310.8[facility] BvmvlqvJPMKIISVJI9687-28-28 15:55:31 58.3[facility] HermannPARATHYROID QCOCRHM3550-19-08 15:55:191.11[facility] PARATHYROID YFHTHGE0899-99-34 15:55:191.17[facility] HermannDRUG MFVWJI1178-71-74 03:45:57Negative *NA*(12/16/13 10:45 PM)[facility]annDR[facility] AKISTM6959-40-97 03:45:57Positive *ABN*(12/16/13 10:45 PM)[facility]annDR[facility] DKPQTW0977-63-76 03:45:57Negative *NA*(12/16/13 10:45 PM)[facility]DR[facility] EMAABD0931-07-72 03:45:57Negative *NA*(12/16/13 10:45 PM)[facility]DR[facility] VETCQV0544-91-25 03:45:57Negative *NA*(12/16/13 10:45 PM)[facility]DR[facility] FZTUMN9335-97-24 03:45:57See Note 6(12/16/13 10:45 PM)[facility]DR[facility] HJXDVC8849-92-60 03:45:57Negative *NA*(12/16/13 10:45 PM)[facility]annDR[facility] EGSILM2661-50-83 03:45:57Negative *NA*(12/16/13 10:45 PM)[facility]annCARDIAC CBRSUQB4515-31-07 03:45:0056[facility]annCARDIAC JHPGUBP3471-52-60 03:45:00<0.010[facility]annCARDIAC RPXEFPC8683-53-12 03:45:00<0.02[facility] HermannCARDIAC ENZYMES 2013-12-17 03:45:0013[facility] TqmomujSTAWUZ9636-06-42 03:45:0018[facility] NTKLGW3716-91-96 03:45:0088[facility] HkkpppyELYRFJ6632-38-69 03:45:0088[facility] VbbmtjcXUUYLX0343-04-10 03:45:003.08[facility] VdzlkipKKJRUX7552-25-52 03:45:92049 [facility] NzeuhxfUOSZUG0147-23-96 03:45:0051[facility] HermannSPECIAL CHEMISTRY 2013-12-17 03:45:005.3[facility] HermannTHYROID MOMBP4270-97-18 03:45:000.870 [facility]annCARDIAC ZHHWRDN9301-78-64 22:09:0042[facility]annCARDIAC UVQIGLJ3490-75-81 22:09:00<0.02[facility] HermannCHEM QDRNH1950 19:30:00 1.3[facility] PdejyxsNTTHMBJLLP5313-71-83 19:30:00 Test Item Value Reference Range Interpretation Comments PT (test code = PT) 11.8 s 12.0-14.7 [facility] YkhejgwJQRCSCUPIB3378-84-80 19:30:000.87[facility] HermannHEMATOLOGY 2013-12-16 19:30:00 Test Item Value Reference Range Interpretation Comments PTT (test code = PTT) 31.2 s 22.9-35.8 [facility] CnfsbazUELONHMMDP0731-13-39 19:30:004.69[facility] HermannHEMATOLOGY 2013-12-16 19:30:006.6[facility] WjkhkgjGOPBAZTWLQ3516-72-57 19:30:0040.5[facility] BxmkkkgRNKZTYVYTB4017-67-14 19:30:0086.4[facility] YhlffekMJKPAXWMTE8799-51-94 19:30:0013.6[facility] RcoylrzZDQQWDTDFV2545-98-43 19:30:00 Test Item Value Reference Range Interpretation Comments MCH (test code = MCH) 29.0 pg 27.0-31.0 [facility] RfeupieOEYHCIALJN4319-56-55 19:30:0033.6[facility] HermannHEMATOLOGY 2013-12-16 19:30:08357Vekmmwyg PvcojnsBCCBLCNWSU4329-36-57 19:30:0013.4[facility] HwvfjbmFKLWLPTXWS9327-84-84 19:30:008.6[facility] SgzdgewLVVCSLZPKP2108-75-31 19:30:000.8[facility] EzlzwnrZJTZBHRSUO1959-18-31 19:30:000.0[facility] HHUABNYGOX2924-05-70 19:30:0012.1[facility] RulfxxnLOSGKSINWD3529-18-00 19:30:00 3.8[facility] EoirmemDMZKJNPEST6390-56-62 19:30:000.6[facility] HermannHEMATOLOGY 2013-12-16 19:30:003.9[facility] IhhiwwsGJETACNHJX1248-59-38 19:30:000.3[facility] UubwysmEODSEEKWLP3711-65-86 19:30:001.6[facility] OlgarfsNIGYOPBEPM6074-42-25 19:30:0025.0[facility] ZiftyfcMHHDFDIAUK8509-30-71 19:30:0058.5[facility] CHEM MLERE7719-83-53 17:43:2479[facility] HermannCHEM GWISM6842-33-76 17:43:240.9 [facility] HermannCHEM FWOZY2878-89-19 17:43:81281Obvgankb HermannCHEM PANEL 2013-12-16 17:43:244.5[facility] HermannCHEM CAVUP1738-57-01 17:43:41868Scuwnewq HermannCHEM JSEFR1472-79-89 17:43:2478[facility] HermannCHEM ALBFW1408-09-95 17:43:2411[facility] HermannCHEM GEPOC0938-82-49 17:43:241.0[facility] HermannCHEM CGLVD2520-32-64 17:43:2412[facility] HermannCHEM QGWMG1720-20-24 17:43:243.6 [facility] HermannCHEM ZNAWL9560-74-43 17:43:2416.5[facility] HermannCHEM PANEL 2013-12-16 17:43:247.2[facility] HermannCHEM WMHJE9823-94-03 17:43:2419[facility] HermannCHEM HUYOM4696-57-50 17:43:2423[facility] HermannCHEM OCBQQ8400-46-62 17:43:249.2[facility] HermannCHEM QNWIP7076-94-34 17:43:240.3[facility] HermannCHEM KUAJJ9250-74-57 17:43:243.6[facility] HermannCHEM MJRKC0271-49-87 17:43:2487 [facility]annCHEM EBOEY7794-48-20 17:43:2431[facility] HermannCARDIAC ENZYMES 2013-12-16 17:43:0056[facility] HermannCARDIAC AEMFAYU6875-87-84 17:43:00<0.02 [facility]annCARDIAC RKLZCFS0617-13-12 19:12:00<0.02[facility] CARDIAC FMTNVHO1548-63-05 19:12:0049[facility]annCARDIAC JZPMFGK8165-74-51 19:12:00<0.010[facility] ElvaeemQRXSRQSSA0261-13-47 19:12:0036[facility] CARDIAC HPWNBVZ8907-79-54 12:35:00<0.010[facility]annCARDIAC ENZYMES 2013-11-08 12:35:0054[facility]annCARDIAC HTMCTLB9475-29-60 12:35:00<0.02 [facility]annCARDIAC SEQDZDP3997-60-37 08:36:00<0.02[facility] FYTIXDIWHIND7523-28-01 08:36:0011.4[facility] GygsbllFNJNSQRKKRPH0785-01-40 08:36:0069[facility] UkhbudiXNAVCXAZALCM7582-81-74 08:36:009.2[facility] QTJXVOFEFKLV0806-06-99 08:36:0027[facility] UaouuzdPZNHITFCASVD5901-29-24 08:36:00 105[facility] NucyenzPGHPMDZRDAFS1048-77-56 08:36:003.4[facility] PJKBIPHTVIBC5109-44-92 08:36:05518Budoenum WxpuahkRNBORHAKNAIT3126-28-99 08:36:0011[facility] UbpkexgWTAPNQDHAWNS8920-88-34 08:36:0084[facility] PTVRRBOWHPLR6589-11-06 08:36:001.0[facility] MvwlcrtUPUKDSKHNC8054-22-23 08:36:00 0.1[facility] VtdmbgwQBFWFPTHKW0794-71-16 08:36:000.2[facility] HermannHEMATOLOGY 2013-11-08 08:36:000.8[facility] BgtxjcoRQLJMGNAJT1172-23-81 08:36:0072.5[facility] RwhkeftCABMPURTXE3631-22-98 08:36:0017.0[facility] PxdddrkECYFLCDFTZ6189-91-10 08:36:002.1[facility] IuywndoLRMHZGAWJO3673-83-08 08:36:007.8[facility] GOWNBXEQYT1296-29-90 08:36:007.6[facility] MaiicfgEBLEQIOSTW8491-59-06 08:36:000.6 [facility] DoltkyeEYPLFRRJWW1624-12-84 08:36:001.8[facility]annHEMATOLOGY 2013-11-08 08:36:008.7[facility] ZywqpboIFMKXILXHH1603-06-09 08:36:0014.0[facility] HpdhbpzSSFCYJLMJK8269-75-90 08:36:39854Buxqidtt UerobthHSDCERMOEJ9732-94-15 08:36:0033.9[facility] VmkdplcYQZCTOXVPJ7522-78-66 08:36:004.65[facility] MPMEXPXCGF1467-91-47 08:36:0010.6[facility] JryyniiPPEPILQEHL2695-34-85 08:36:00 Test Item Value Reference Range Interpretation Comments MCH (test code = MCH) 29.3 pg 27.0-31.0 [facility] KcjdbfbZCQXBPZYHQ2299-42-93 08:36:0086.6[facility] HermannHEMATOLOGY 2013-11-08 08:36:0013.6[facility] IjhoxrrFIVFJWZAQO2868-63-37 08:36:0040.2[facility]
--- NOTE | 2021-08-03 20:48 | RAD REPORT ---
EXAM DESCRIPTION: RAD - Chest Single View - 08/03/2021 8:43 pm CLINICAL HISTORY: CHEST PAIN COMPARISON: <Comparisons> FINDINGS: Lines: None. Lungs: No evidence of edema or pneumonia. Pleural: No significant pleural effusions or pneumothorax. Cardiac: The heart size is within normal limits. Bones: No acute fractures. Other: IMPRESSION: No acute cardiopulmonary disease.
[2021-08-03] MEDS ORDERED: METHYLPREDNISOLONE 125 MG INJ ONE (20:51)
[2021-08-03] MEDS ORDERED: ALBUTEROL 2.5 MG/3 ML NEB SOL ONE (20:52)
[2021-08-03] MEDS ORDERED: MORPHINE 4 MG/ML SYR ONE (20:52)
[2021-08-03] MEDS ORDERED: IPRATROPIUM BROM 0.5MG/2.5ML ONE (20:52)
[2021-08-03] MEDS ORDERED: ONDANSETRON 4 MG/2 ML VIAL ONE (20:52)
[2021-08-03 21:10] LABS: Absolute Lymphocytes (CBC) 2.4 K/uL (0.7-4.9); Basophils % 0.9 % (0-1.3); Hematocrit 43.3 % (36.0-45.0); Lymphocytes % 34.3 % (15.3-44.8); MPV 7.8 fL (7.6-11.3); RBC Red Blood Cell Count 4.91 M/uL (3.86-4.86)
[2021-08-03 21:11] LABS: Protime INR 0.91
[2021-08-03 21:27] LABS: ALT/SGPT 16 U/L (12-78); AST/SGOT 12 U/L (15-37); Albumin 3.5 g/dL (3.4-5.0); Alkaline Phosphatase 86 U/L (45-117); BUN Blood Urea Nitrogen 7 mg/dL (7-18); Bicarbonate 25 mmol/L (21-32); Bilirubin Direct 0.1 mg/dL (0-0.2); Bilirubin Total 0.4 mg/dL (0.2-1.0); Glucose Level 108 mg/dL (74-106); Magnesium 2.2 mg/dL (1.8-2.4); NT PRO-BNP 12 pg/mL (<125); Potassium 3.4 mmol/L (3.5-5.1); Protein, Total 7.1 g/dL (6.4-8.2); Sodium Level 140 mmol/L (136-145); Troponin (Emerg Dept Use Only) < 0.02 ng/mL (0.0-0.045)
--- NOTE | 2021-08-03 22:22 | ER ---
Nurse's Notes [facility] Name: Winsome Yepez Age: 71 yrs Sex: Female : 1950 Arrival Date: 08/03/2021 Time: 20:23 Bed 17 Private MD: Diagnosis: COPD/ Chronic obstructive pulmonary disease, unspecified Presentation: 08/03 20:23 Chief complaint: EMS states: Mid sternal chest pain with deep inhalation and vg1 exhalation; states hx of asthma. States lower back pain and left leg pain. Coronavirus screen: Vaccine status: Patient reports receiving the 2nd dose of the covid vaccine. Client denies travel out of the [place] in the last 14 days. Ebola Screen: Patient negative for fever greater than or equal to 101.5 degrees Fahrenheit, and additional compatible Ebola Virus Disease symptoms. Initial Sepsis Screen: Does the patient meet any 2 criteria? No. Patient's initial sepsis screen is negative. Does the patient have a suspected source of infection? No. Patient's initial sepsis screen is negative. Risk Assessment: Do you want to hurt yourself or someone else? Patient reports no desire to harm self or others. Onset of symptoms was August 03, 2021. 20:23 Method Of Arrival: EMS: [facility] vg1 20:23 Acuity: CYNTHIA 3 vg1 Triage Assessment: 20:39 General: Appears in no apparent distress. comfortable, Behavior is calm, cooperative. vg1 Pain: Complains of pain in mid-sternal area Pain does not radiate. Pain currently is 10 out of 10 on a pain scale. Neuro: Level of Consciousness is awake, alert, obeys commands, Oriented to person, place, time, situation. Respiratory: Airway is patent Respiratory effort is even, unlabored. Historical: - Allergies: 20:39 PENICILLINS; vg1 - Home Meds: 20:39 Albuterol Inhl [Active]; Metronidazole Oral [Active]; pantoprazole oral [Active]; vg1 - PMHx: 20:39 Asthma; High Cholesterol; Hypertension; Myocardial infarction; Sickle Cell; Congestive vg1 heart failure; Anemia; - PSHx: 20:39 back sx; vg1 - Immunization history:: Client reports receiving the 2nd dose of the Covid vaccine. - Social history:: Smoking status: Patient reports the use of cigarette tobacco products, smokes one-half pack cigarettes per day. Screenin:30 Abuse screen: Denies threats or abuse. Denies injuries from another. Nutritional ld1 screening: No deficits noted. Tuberculosis screening: No symptoms or risk factors identified. Fall Risk None identified. Assessment: 20:30 General: Appears in no apparent distress. comfortable, Behavior is calm, cooperative, ld1 appropriate for age. 20:30 Pain: Complains of pain in back. Neuro: Level of Consciousness is awake, alert, obeys ld1 commands, Oriented to person, place, time, situation. Cardiovascular: Capillary refill < 3 seconds Patient's skin is warm and dry. Respiratory: Airway is patent Respiratory effort is even, unlabored, Respiratory pattern is regular, symmetrical. GI: Abdomen is flat, non-distended. : No signs and/or symptoms were reported regarding the genitourinary system. EENT: No signs and/or symptoms were reported regarding the EENT system. Derm: No signs and/or symptoms reported regarding the dermatologic system. Musculoskeletal: No signs and/or symptoms reported regarding the musculoskeletal system. Injury Description:. Vital Signs: 20:23 BP 122 / 74; Pulse 83; Resp 16; Temp 98.6; Pulse Ox 100% ; Weight 49.9 kg; Height 5 ft. vg1 0 in. (152.40 cm); Pain 10/10; 20:30 BP 128 / 77; Pulse 80; Resp 16; Pulse Ox 100% on R/A; ld1 20:23 Body Mass Index 21.48 (49.90 kg, 152.40 cm) vg1 ED Course: 20:23 Patient arrived in ED. jr8 20:30 Maribel Marr, AZAM is Primary Nurse. jh5 20:30 Patient has correct armband on for positive identification. Placed in gown. Bed in low ld1 position. Call light in reach. Side rails up X2. monitoring coordinator on. Pulse ox on. NIBP on. Door closed. Noise minimized. Warm blanket given. Pillow given. 20:30 No provider procedures requiring assistance completed. IV discontinued, intact, ld1 bleeding controlled, No redness/swelling at site. 20:34 Pratik Weir NP is PHCP. pm1 20:34 Jaden Pulido MD is Attending Physician. pm1 20:39 Triage completed. vg1 20:39 Arm band placed on. vg1 20:43 XRAY Chest (1 view) In Process Unspecified. EDMS 20:58 Initial lab(s) drawn, by me, sent to lab. Inserted saline lock: 24 gauge in right vg1 wrist, using aseptic technique. Blood collected. Administered Medications: 21:00 Drug: AtroVENT (ipratropium) Aerosol 0.5 mg Route: Inhalation; ld1 21:00 Drug: SOLU-Medrol (methylPrednisoLONE) 125 mg Route: IVP; Site: right forearm; ld1 21:00 Drug: morphine 4 mg Route: IVP; Site: right forearm; ld1 21:00 Drug: Zofran (Ondansetron) 4 mg Route: IVP; Site: right forearm; ld1 21:01 Drug: Albuterol 2.5 mg Route: Inhalation; ld1 Outcome: 22:21 Discharge ordered by MD. pm1 22:45 Discharged to home via wheelchair, Called cab for pt. ld1 22:45 Condition: stable 22:45 Discharge instructions given to patient, Instructed on discharge instructions, follow up and referral plans. medication usage, Demonstrated understanding of instructions, follow-up care, medications, Prescriptions given X 2. 22:46 Patient left the ED. ld1 Signatures: Dispatcher [employer] EDMS Felipe Marsh PA PA jr8 Pratik Weir NP PRIVATE SECURITY GUARD pm1 Bhargavi Jennings RN RN vg1 Elvira Rae RN RN ld1 Maribel Marr RN RN jh5
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
[2021-08-03 22:54] VITALS: TEMP 98.6; O2SAT 100
[2021-08-03 22:56] VITALS: BP 128/77
--- NOTE | 2021-08-04 13:04 | EKG ---
Test Date: 2021-08-03 Test Time: 20:32:51 Hogshead Wrecker: ERICKA MEASUREMENT RESULTS: Intervals: Rate: 82 VT: 148 QRSD: 84 QT: 378 QTc: 441 Wiggins: P: 93 VT: 148 QRS: 58 T: 80 INTERPRETIVE STATEMENTS: Normal sinus rhythm Possible Left atrial enlargement Borderline ECG Compared to ECG 07/31/2021 16:03:25 No significant changes Electronically Signed On 08-04-21 13:02:32 HEADING AND PRIMING TOOL SETTER by Clint Norris
== END 2021-08-03 22:46 | disposition home or self-care (01) ==
LOC: ER 20:21
DX: J44.9 Chronic obstructive pulmonary disease, unspecified (principal); I10 Essential (primary) hypertension; I50.9 Heart failure, unspecified; Z88.0 Allergy status to penicillin
CPT/HCPCS: 93005; 85025; 80048; 36415; 83735; 85610; 80076; 84484; 83880; 71045; 96375; 96374; 99285; J2930; J2405

== ENCOUNTER 2021-09-25 11:02 | Emergency (ER) | payer OTHER ==
--- OUTSIDE RECORDS SUMMARY | 2021-09-25 11:18 | XMS REPORT | Continuity of Care Document ---
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 l de 50 MG 22:02: Q4H, PRN Caroline nn Oral Tablet 00 pain, # 20 [Ultram] tab, 0 Refill(s) Aspirin No Notes: Memoria 7-14 Take with l 20:32: food. [place] Morphine No Notes: Memoria 7-14 (Same l 20:32: as:MORPhin [place] 00 e Sulfate) Ondansetron No Notes: Eleazar hilton 7-14 (Same as: l 20:32: Zofran) Maciej MEDICATION WASTE Product Size: 4 mg Product Wasted: ___ mg Saline No Notes: Memoria Flush 0.9% -14 (Same as: l 20:32: BD Maciej 00 Posiflush) Famotidine No 20 mg, 1 Mem oria 20 MG Oral 7-08 tab, l Tablet 14:00: Route: PO, Caroline nn [Pepcid] 00 BID, Dosing Weight 50, kg, Start date: 03/05/15 9:00:00, Duration: 30 day, Stop date: 04/03/15 17:00:00 MDI Inhaler Yes Special Mem oria Spacer 7-08 Instructio l 09:13: ns: Use as 00 directed 200 ACTUAT Yes 1 puff, Eleazar hilton Albuterol -08 INHALATION l 0.09 09:12: , Q4H, PRN [place] MG/ACTUAT 00 for Metered wheezing, Dose # 9 gm, 0 Inhaler Refill(s) Iohexol No Notes: Memoria 7-08 (same l 07:26: as:Omnipaq [place] 00 ue 350). Famotidine No 20 mg, 1 [...] Memoria 6-30 Take with l 14:00: food. [place] 00 24 HR Yes = 1 patch, Memori a Nicotine 6-30 TOP, l 0.875 MG/HR 13:32: Daily, X He rmann Transdermal 56 14 day, # Patch 14 patch, [Nicoderm 0 C-Q] Refill(s) atorvastati Yes 40 mg = 2 M emoria n 20 mg 6-30 tab, PO, l oral tablet 13:32: Bedtime, # [place] 46 60 tab, 0 Refill(s) omeprazole Yes [...] tab, PO, l Tablet 13:32: Daily, # [place] [Plavix] 00 30 tab, 0 Refill(s) Protonix No Notes: Memoria 6-30 Tablet l 12:30: should not Maciej 00 be chewed or crushed. (Same as: Protonix) Protonix No Notes: For Mem oria 02-25 IV push l 02:55: reconstitu [place] 00 te with 10 ml 0.9% sodium chloride and push over 2 minutes. (Same as: Protonix) atorvastati No Notes: Eleazar hilton n 30 (Same As: l 02:00: Lipitor) [place] 00 Sodium No 250 mL, Memoria Chloride 02-25 Route: l 0.9% IV 02:00: IVPB, Maciej Start date: 02/24/15 21:00:00, Duration: 30 day, Stop date: 03/26/15 20:59:00, PRN Line Flush BD Normal No Notes: Memori a Saline 6-30 (Same as: l Flush 02:00: BD Posiflush) potassium No Notes: Memori a chloride 02-25 Infuse at l 02:00: a rate of [...] of new patch. Plavix No Notes: Memoria 6- (Same As: l 14:00: Plavix) atorvastati No Notes: Eleazar hilton n 02-18 (Same As: l 02:00: Lipitor) Pravastatin No Notes: Eleazar hilton 02-18 (Same as: l 02:00: Pravachol) Protonix No Notes: Memoria 6-22 Tablet l 22:30: should not [place] 00 be chewed or crushed. (Same as: Protonix) NS 1,000 mL No 1,000 mL, M emoria 6-22 Rate: 100 l 21:51: ml/hr, [place] 00 Infuse over: 10 hr, Route: IV, [...] tab, PO, l tablet 20:24: BID, PRN [place] 00 Pain, # 30 tab, 0 Refill(s) [...] PO, l oral tablet 20:24: Bedtime, # [place] 00 30 tab, 0 Refill(s) omeprazole Yes 20 mg = 1 Me moria 20 mg oral 6-22 tab, PO, l enteric 17:29: BID, # 30 Caroline nn coated 00 tab, 0 tablet Refill(s) 24 HR Yes = 1 patch, Memori a Nicotine 6-22 TOP, l 0.875 MG/HR 17:00: Daily, X He ann Transdermal 00 14 day, # Patch 14 patch, [Nicoderm 0 C-Q] Refill(s) atorvastati Yes 40 mg = 2 M emoria n 20 mg 6-22 tab, PO, l oral tablet 17:00: Bedtime, # Maciej 00 60 tab, 0 Refill(s) Nicotine No Notes: Memoria 02-17 (Same as: l 14:00: Habitrol) [place] 00 "Remove old patch before applicatio n of new patch" Aspirin 81 No Notes: Do Me moria MG Enteric 02-17 not crush l Coated 14:00: or chew. [place] Tablet 00 (Same As: Ecotrin) Sodium No 1,000 mL, Memori a Chloride 02-17 Rate: 125 l 0.154 13:38: ml/hr, [place] MEQ/ML 00 Infuse Injectable over: 8 Solution hr, Route: IV, Dosing Weight 51.051 kg, Total Volume: 1,000, Start date: 02/17/15 8:38:00, Duration: 30 day, Stop date: 03/19/15 8:37:00 Aspirin 81 No 81 mg = 1 Me moria MG Enteric 6-22 tab, PO, l Coated 02:37: Daily, # [place] Tablet 00 90 tab, 3 Refill(s) clopidogrel Yes 75 mg = 1 M emoria 75 MG Oral 6-22 tab, PO, l Tablet 02:37: Daily, # [place] [Plavix] 00 30 tab, 0 Refill(s) Enoxaparin No Notes: Navneet delgadillo 02-17 Nurse to l 02:30: ensure [place] 00 documentat ion of patient education per anticoagul ation policy. (Same as: Lovenox) Tessalon No Notes: Memoria Perles 02-17 (Same As: l 02:08: Tessalon Perles) "Do Not Crush" Acetaminoph No Notes: Do M emoria en 02-17 not exceed l 02:08: 4 gm/day. [place] 00 (Same as: Tylenol) Diphenhydra No Notes: Eleazar hilton mine 02-17 (Same as: l 02:08: Benadryl) [place] 00 Dextrometho No Notes: Eleazar hilton rphan 02-17 (dextromet l Hydrobromid 02:08: horphan-gu Maciej e 2 MG/ML / 00 aifenesin Guaifenesin 10-100mg/5 20 MG/ML ml 10 ml Oral oral SOLN Solution ud) (Same as: Robitussin DM) Simethicone No Notes: Eleazar hilton 02-17 (Same as: l 02:08: Mylicon) [place] 00 Bisacodyl No Notes: Memori a 02-17 (Same As: l 02:08: Dulcolax, [place] 00 Bisco-Lax) Ondansetron No Notes: Eleazar hilton [...] 02-17 not exceed l 02:06: 4 gm/day. [place] (Same as: Tylenol) Acetaminoph No Notes: Eleazar hilton en 325 MG / 02-17 (Same as: l Hydrocodone 02:06: [place] Caroline nn Bitartrate 00 325/5) Do 5 MG Oral not exceed Tablet 4gm/day of acetaminop hen. Morphine No Notes: Memoria 02-17 (Same l 02:06: as:MORPhin [place] 00 e Sulfate) Sodium No 1,000 mL, [...] 02-17 (Same as: l Flush 00:52: BD [place] 00 Posiflush) Morphine No Notes: Memoria 02-17 (Same l 00:28: as:MORPhin [place] 00 e Sulfate) Nitroglycer No Notes: Eleazar hilton in 02-17 (Same l 00:28: as:Nitroqu [place] 00 ick, Nitrostat) "Do Not Crush" Sublingual tablet Aspirin No Notes: (Do Eleazar hilton 02-16 Not Crush) l 22:49: Do not crush or chew. Ondansetron No Notes: Eleazar hilton - (Same as: l 21:22: Zofran) Morphine No Notes: Memoria - (Same l 21:22: as:MORPhin [place] 00 e Sulfate) Aspirin / No Notes: Memori a Calcium - Take with l Carbonate 21:22: food. Maciej Aspirin 81 Yes 81 mg = 1 Me moria MG Enteric -21 tab, PO, l Coated 20:08: Daily, # [place] Tablet 00 90 tab, 0 Refill(s) metoprolol Yes 12.5 mg = Me moria tartrate 25 4-21 0.5 tab, l mg oral 20:08: PO, BID, # Herm eugenie tablet 00 90 tab, 0 Refill(s) clopidogrel Yes 75 mg = 1 M emoria 75 mg oral 4-21 tab, PO, l tablet 20:08: Daily, # [place] 00 90 tab, 0 Refill(s) atorvastati Yes 20 mg = 1 M emoria n 20 mg 4-21 tab, PO, l oral tablet 20:08: Bedtime, # Maciej 00 90 tab, 0 Refill(s) metoprolol No Notes: Memor ia tartrate -21 (Same as: l 14:00: Lopressor) 12.5mg=1/ 4 X 50 mg tab. Lovenox No Notes: Memoria 4-21 (Same as: l 14:00: Lovenox) clopidogrel No Notes: Eleazar hilton -21 (Same As: l 14:00: Plavix) Aspirin / No Notes: Do Mem oria Calcium - not crush l Carbonate 14:00: or chew. Herm eugenie (Same As: Ecotrin) Saline No Notes: Memoria Flush 0.9% - (Same as: l 14:00: BD [place] 00 Posiflush) Adenosine No 41.6178 Memor ia 4-21 mg, Route: l 03:42: IVP, ONCE, Dosing Weight 49.545, kg, Priority: Routine, Start date: 12/16/13 22:42:00, Stop date: 12/16/13 22:42:00 atorvastati No Notes: Eleazar hilton n -21 (Same As: l 03:28: Lipitor) Saline No Notes: Memoria Flush 0.9% -21 (Same as: l 03:25: BD [place] 00 Posiflush) Nitroglycer No Notes: Eleazar hilton [...] tab, PO, l tablet 01:48: Daily, 0 [place] 00 Refill(s) Metoprolol No 12.5 mg = Me moria Tartrate 25 4-21 0.5 tab, l mg oral 01:47: PO, BID, 0 Herm eugenie tablet 00 Refill(s) Aspirin Low No = 1 tab, Me moria Dose 81 mg 4-21 PO, Daily, l oral tablet 01:46: 0 Kristopher n 00 Refill(s) Sodium No 1,000 mL, Memori a Chloride 4-20 1,000 l 0.154 23:43: ml/hr, [place] MEQ/ML 00 Infuse Injectable Over: 1 Solution [...] Chloride 4-20 1,000 l 0.154 19:43: ml/hr, [place] MEQ/ML 00 Infuse Injectable Over: 1 Solution [...] n 3-14 tab, l 02:00: Route: PO, [place] 00 Drug form: TAB, Bedtime, Dosing Weight [...] date: 12/07/13 9:00:00( me As: Plavix) Saline 2013-0 No 5 ml, Memoria Flush 0.9% 11-08 Route: l 14:00: MISC, Drug Form: INJ, Dosing Weight 63.636, kg, Q12H, Start date: 11/08/13 9:00:00, Duration: 30 day, Stop date: 12/07/13 21:00:00(S nino as: BD Posiflush) Lovenox 2013- No 40 mg, 0.4 Eleazar hilton 11-08 mL, Route: l 14:00: SUB-Q, Drug form: INJ, Q24H, Dosing Weight 63.636, kg, Start date: 11/08/13 9:00:00, Duration: 30 day, Stop date: 12/07/13 9:00:00( me as: Lovenox) Tylenol No 650 mg, 2 Memor ia 3-13 tab, l 13:15: Route: PO, Drug form: TAB, Q4H, Dosing Weight 63.636, kg, PRN Pain, Start date: 11/08/13 8:15:00, Duration: 30 day, Stop date: 12/08/13 8:14:00Do not exceed 4 gm/day. (Same as: Tylenol) Saline 2013- No 5 ml, Memoria Flush 0.9% 11-08 Route: l 12:06: MISC, Drug Form: INJ, Dosing Weight 63.636, kg, PRN, PRN Line Flush, Start date: 11/08/13 7:06:00, Duration: 30 day, Stop date: 12/08/13 7:05:00( me as: BD Posiflush) Nitroglycer 2013- No 0.4 mg, 1 M emoria in 3-13 tab, l 12:06: Route: SL, Drug form: TAB, Q5Min, Dosing Weight 63.636, kg, PRN Chest Pain, Start date: 11/08/13 7:06:00, Duration: 30 day, Stop date: 12/08/13 7:01:00([facility] as:Nitroqu ick, Nitrostat) "Do Not Crush" Sublingual [...] 2020-10-15 10:45:00 114 mm[Hg] [facility] Diastolic blood 2020-10-15 10:45:00 80 mm[Hg] [facility] Heart rate 2020-10-15 10:45:00 76 /min [facility] Body temperature 2020-10-15 10:45:00 37.44 [facility] 2020-10-15 10:45:00 18 /min [facility] acute hospital Oxygen saturation in 2020-10-15 10:45:00 95 /min [facility] Arterial blood by [facility] Pulse oximetry Branch Body height 2020-10-15 07:57:00 152.4 cm [facility] Body weight 2020-10-15 07:57:00 40.824 kg [facility] BMI 2020-10-15 07:57:00 17.58 kg/m2 [facility] Systolic blood 2020-10-15 10:45:00 114 mm[Hg] [facility] Diastolic blood 2020-10-15 10:45:00 80 mm[Hg] [facility] Heart rate 2020-10-15 10:45:00 76 /min [facility] Body temperature 2020-10-15 10:45:00 37.44 [facility] Respiratory rate 2020-10-15 10:45:00 18 /min [facility] acute hospital Oxygen saturation in 2020-10-15 10:45:00 95 /min [facility] Arterial blood by [facility] Pulse oximetry Branch Body height 2020-10-15 07:57:00 152.4 cm [facility] Body weight 2020-10-15 07:57:00 40.824 kg [facility] BMI 2020-10-15 07:57:00 17.58 kg/m2 [facility] Systolic (mm Hg) 2017-01-19 23:16:00 Eleazar rial [place] Diastolic (mm Hg) 2017-01-19 23:16:00 Mem orial [place] Respitory Rate 2017-01-19 23:16:00 Memori al [place] Systolic (mm Hg) 2017-01-19 22:28:00 Eleazar rial [place] Diastolic (mm Hg) 2017-01-19 22:28:00 Mem orial [place] Respitory Rate 2017-01-19 22:28:00 Memori al [place] Respitory Rate 2017-01-19 21:00:00 Memori al [place] Systolic (mm Hg) 2017-01-19 20:00:00 Eleazar rial [place] Diastolic (mm Hg) 2017-01-19 20:00:00 Mem orial [place] Weight 2017-01-19 17:23:00 [facility] Mac[facility] BMI Calculated 2017-01-19 17:23:00 Memori al [place] Height 2017-01-19 17:23:00 152.4 cm [facility] Temperature Oral (F) 2017-01-19 17:23:00 97.0 F [facility] Heart Rate 2017-01-19 17:23:00 [facility] [place] Systolic (mm Hg) 2017-01-17 02:10:00 Eleazar rial [place] Diastolic (mm Hg) 2017-01-17 02:10:00 Mem orial [place] Respitory Rate 2017-01-17 02:10:00 Memori al [place] Systolic (mm Hg) 2017-01-17 01:21:00 Eleazar rial [place] Diastolic (mm Hg) 2017-01-17 01:21:00 Mem orial [place] Respitory Rate 2017-01-17 01:21:00 Memori al [place] Temperature Oral (F) 2017-01-17 01:21:00 98.1 F [facility] [place] Systolic (mm Hg) 2017-01-17 00:28:00 Eleazar rial [place] Diastolic (mm Hg) 2017-01-17 00:28:00 Mem orial [place] Respitory Rate 2017-01-17 00:28:00 Memori al [place] Heart Rate 2017-01-16 23:24:00 [facility] [place] Temperature Oral (F) 2017-01-16 23:24:00 98 F [facility] [place] Weight 2017-01-16 23:24:00 [facility] [place] Heart Rate 2016-11-29 03:44:00 [facility] [place] Systolic (mm Hg) 2016-11-29 03:44:00 Eleazar rial [place] Diastolic (mm Hg) 2016-11-29 03:44:00 Mem orial [place] Respitory Rate 2016-11-29 03:44:00 Memori al [place] Temperature Oral (F) 2016-11-29 03:44:00 98.7 F [facility] [place] Heart Rate 2016-11-29 03:24:00 [facility] [place] Respitory Rate 2016-11-29 03:24:00 Memori al [place] Systolic (mm Hg) 2016-11-29 03:24:00 Eleazar rial [place] Diastolic (mm Hg) 2016-11-29 03:24:00 Mem orial [place] Heart Rate 2016-11-29 02:51:00 [facility] [place] Respitory Rate 2016-11-29 02:51:00 Memori al [place] Systolic (mm Hg) 2016-11-29 02:51:00 Eleazar rial [place] Diastolic (mm Hg) 2016-11-29 02:51:00 Mem orial [place] Weight 2016-11-29 00:21:00 [facility] [place] BMI Calculated 2016-11-29 00:21:00 Memori al [place] Height 2016-11-29 00:21:00 152.4 cm [facility] [place] Temperature Oral (F) 2016-11-29 00:21:00 98.6 F [facility] [place] Respitory Rate 2016-11-07 02:47:00 Memori al [place] Heart Rate 2016-11-07 02:47:00 [facility] [place] Temperature Oral (F) 2016-11-07 02:47:00 98.2 F [facility] [place] Systolic (mm Hg) 2016-11-07 02:47:00 Eleazar rial [place] Diastolic (mm Hg) 2016-11-07 02:47:00 Mem orial [place] Heart Rate 2016-11-07 02:22:00 [facility] [place] Respitory Rate 2016-11-07 02:22:00 Memori al [place] Systolic (mm Hg) 2016-11-07 02:22:00 Eleazar rial [place] Diastolic (mm Hg) 2016-11-07 02:22:00 Mem orial [place] Weight 2016-11-06 23:37:00 [facility] [place] Heart Rate 2016-11-06 23:37:00 [facility] [place] Temperature Oral (F) 2016-11-06 23:37:00 98.3 F [facility] [place] Respitory Rate 2016-11-06 23:37:00 Memori al [place] Systolic (mm Hg) 2016-11-06 23:37:00 Eleazar rial [place] Diastolic (mm Hg) 2016-11-06 23:37:00 Mem orial [place] Respitory Rate 2016-10-11 18:24:00 Memori al [place] Temperature Oral (F) 2016-10-11 18:24:00 97.9 F [facility] [place] Systolic (mm Hg) 2016-10-11 18:24:00 Eleazar rial [place] Diastolic (mm Hg) 2016-10-11 18:24:00 Mem orial [place] Heart Rate 2016-10-11 18:24:00 [facility] [place] Heart Rate 2016-10-11 13:53:00 [facility] [place] Systolic (mm Hg) 2016-10-11 13:53:00 Eleazar rial [place] Diastolic (mm Hg) 2016-10-11 13:53:00 Mem orial [place] Temperature Oral (F) 2016-10-11 13:53:00 98.1 F [facility] [place] Temperature Oral (F) 2016-10-11 10:16:00 99.0 F [facility] [place] Respitory Rate 2016-10-11 10:16:00 Memori al [place] Heart Rate 2016-10-11 10:16:00 [facility] [place] Systolic (mm Hg) 2016-10-11 10:16:00 Eleazar rial [place] Diastolic (mm Hg) 2016-10-11 10:16:00 Mem orial [place] Weight 2016-10-11 06:46:00 [facility] [place] BMI Calculated 2016-10-11 06:46:00 Memori al [place] Height 2016-10-11 06:46:00 152.4 cm [facility] [place] Respitory Rate 2016-10-11 06:39:00 Memori al [place] Height 2016-10-10 17:48:00 152.4 cm [facility] BMI Calculated 2016-10-10 17:48:00 Memori al [place] Weight 2016-10-10 17:48:00 [facility] [place] BMI Calculated 2016-09-15 04:26:00 Memori al [place] Weight 2016-09-15 04:26:00 [facility] [place] Height 2016-09-15 04:26:00 152.4 cm [facility] [place] Systolic (mm Hg) 2016-09-15 04:26:00 Eleazar rial [place] Diastolic (mm Hg) 2016-09-15 04:26:00 Mem orial [place] Respitory Rate 2016-09-15 04:26:00 Memori al [place] Heart Rate 2016-09-15 04:26:00 [facility] [place] Temperature Oral (F) 2016-09-15 04:26:00 98.5 F [facility] [place] Respitory Rate 2016-04-14 06:22:00 Memori al [place] Temperature Oral (F) 2016-04-14 06:22:00 98.7 F [facility] [place] Systolic (mm Hg) 2016-04-14 06:22:00 Eleazar rial [place] Diastolic (mm Hg) 2016-04-14 06:22:00 Mem orial [place] Heart Rate 2016-04-14 06:22:00 [facility] [place] BMI Calculated 2016-04-14 02:12:00 Memori al [place] Weight 2016-04-14 02:12:00 [facility] [place] Temperature Oral (F) 2016-04-14 02:12:00 99.2 F [facility] [place] Height 2016-04-14 02:12:00 152.4 cm [facility] [place] Respitory Rate 2016-04-14 02:12:00 Memori al [place] Systolic (mm Hg) 2016-04-14 02:12:00 Eleazar rial [place] Diastolic (mm Hg) 2016-04-14 02:12:00 Mem orial [place] Heart Rate 2016-04-14 02:12:00 [facility] [place] Temperature Oral (F) 2016-03-12 17:00:00 97.8 F [facility] [place] Heart Rate 2016-03-12 17:00:00 [facility] [place] Respitory Rate 2016-03-12 17:00:00 Memori al [place] Systolic (mm Hg) 2016-03-12 17:00:00 Eleazar rial [place] Diastolic (mm Hg) 2016-03-12 17:00:00 Mem orial [place] Respitory Rate 2016-03-12 12:54:00 Memori al [place] Systolic (mm Hg) 2016-03-12 12:30:00 Eleazar rial [place] Diastolic (mm Hg) 2016-03-12 12:30:00 Mem orial [place] Respitory Rate 2016-03-12 12:30:00 Memori al [place] Heart Rate 2016-03-12 12:30:00 [facility] [place] Temperature Oral (F) 2016-03-12 12:30:00 98.2 F [facility] [place] Temperature Oral (F) 2016-03-12 10:26:00 98.0 F [facility] [place] Heart Rate 2016-03-12 10:26:00 [facility] [place] Systolic (mm Hg) 2016-03-12 10:26:00 Eleazar rial [place] Diastolic (mm Hg) 2016-03-12 10:26:00 Mem orial [place] Height 2016-03-11 19:45:00 152.4 cm [facility] BMI Calculated 2016-03-11 19:45:00 Memori al [place] Weight 2016-03-11 19:45:00 [facility] [place] Respitory Rate 2016-03-06 01:44:00 Memori al [place] Systolic (mm Hg) 2016-03-06 01:44:00 Eleazar rial [place] Diastolic (mm Hg) 2016-03-06 01:44:00 Mem orial [place] Heart Rate 2016-03-06 01:44:00 [facility] [place] Temperature Oral (F) 2016-03-06 01:44:00 98.1 F [facility] [place] BMI Calculated 2016-03-05 21:55:00 Memori al [place] Weight 2016-03-05 21:55:00 [facility] [place] Systolic (mm Hg) 2016-03-05 21:55:00 Eleazar rial [place] Diastolic (mm Hg) 2016-03-05 21:55:00 Mem orial [place] Heart Rate 2016-03-05 21:55:00 [facility] [place] Height 2016-03-05 21:55:00 152.4 cm [facility] [place] Temperature Oral (F) 2016-03-05 21:55:00 98.3 F [facility] [place] Respitory Rate 2016-03-05 21:55:00 Memori al [place] Respitory Rate 2016-03-01 01:23:00 Memori al [place] Systolic (mm Hg) 2016-03-01 01:23:00 Eleazar rial [place] Diastolic (mm Hg) 2016-03-01 01:23:00 Mem orial [place] Temperature Oral (F) 2016-03-01 01:23:00 98.2 F [facility] [place] Heart Rate 2016-03-01 01:23:00 [facility] [place] Respitory Rate 2016-02-29 23:25:00 Memori al [place] Temperature Oral (F) 2016-02-29 22:27:00 98.3 F [facility] [place] Heart Rate 2016-02-29 22:27:00 [facility] [place] Respitory Rate 2016-02-29 22:27:00 Memori al [place] Systolic (mm Hg) 2016-02-29 22:27:00 Eleazar rial [place] Diastolic (mm Hg) 2016-02-29 22:27:00 Mem orial [place] Respitory Rate 2015-09-05 14:47:00 Memori al [place] Systolic (mm Hg) 2015-09-05 14:47:00 Eleazar rial [place] Diastolic (mm Hg) 2015-09-05 14:47:00 Mem orial [place] Heart Rate 2015-09-05 14:47:00 [facility] [place] Weight 2015-09-05 11:00:00 [facility] [place] Systolic (mm Hg) 2015-09-05 10:00:00 Eleazar rial [place] Diastolic (mm Hg) 2015-09-05 10:00:00 Mem orial [place] Respitory Rate 2015-09-05 10:00:00 Memori al [place] Heart Rate 2015-09-05 10:00:00 [facility] [place] Respitory Rate 2015-09-05 06:00:00 Memori al [place] Systolic (mm Hg) 2015-09-05 06:00:00 Eleazar rial [place] Diastolic (mm Hg) 2015-09-05 06:00:00 Mem orial [place] Heart Rate 2015-09-05 06:00:00 [facility] [place] Weight 2015-09-04 11:00:00 [facility] [place] Weight 2015-09-04 09:15:00 [facility] [place] BMI Calculated 2015-09-04 09:15:00 Memori al [place] Height 2015-09-04 09:15:00 160.02 cm [facility] [place] Temperature Oral (F) 2015-09-04 09:06:00 98.3 F [facility] [place] Height 2015-09-04 03:35:00 152.4 cm [facility] [place] BMI Calculated 2015-09-04 03:35:00 Memori al [place] Temperature Oral (F) 2015-09-04 03:35:00 98.7 F [facility] [place] Systolic (mm Hg) 2015-07-16 13:56:00 Eleazar rial [place] Diastolic (mm Hg) 2015-07-16 13:56:00 Mem orial [place] Respitory Rate 2015-07-16 13:56:00 Memori al [place] Heart Rate 2015-07-16 13:56:00 [facility] [place] Temperature Oral (F) 2015-07-16 13:56:00 98.0 F [facility] [place] Systolic (mm Hg) 2015-07-16 13:55:00 Eleazar rial [place] Diastolic (mm Hg) 2015-07-16 13:55:00 Mem orial [place] Respitory Rate 2015-07-16 13:55:00 Memori al [place] Heart Rate 2015-07-16 13:55:00 [facility] [place] Temperature Oral (F) 2015-07-16 13:55:00 97.4 F [facility] [place] Systolic (mm Hg) 2015-07-16 10:00:00 Eleazar rial [place] Diastolic (mm Hg) 2015-07-16 10:00:00 Mem o[facility] [place] Respitory Rate 2015-07-16 10:00:00 Memori al [place] Heart Rate 2015-07-16 10:00:00 [facility] [place] Temperature Oral (F) 2015-07-16 10:00:00 97.9 F [facility] [place] Height 2015-07-16 01:30:00 152.4 cm [facility] [place] Weight 2015-07-16 01:30:00 [facility] BMI Calculated 2015-07-16 01:30:00 [facility] [place] Height 2015-07-15 18:10:00 152.4 cm [facility] BMI Calculated 2015-07-15 18:10:00 [facility] [place] Weight 2015-07-15 18:10:00 [facility] [place] Weight 2015-07-05 04:10:00 [facility] [place] Height 2015-07-05 04:10:00 152.4 cm [facility] BMI Calculated 2015-07-05 04:10:00 [facility] [place] Temperature Oral (F) 2015-07-05 04:10:00 98.3 F [facility] Respitory Rate 2015-07-05 04:10:00 [facility] Heart Rate 2015-07-05 04:10:00 [facility] [place] Systolic (mm Hg) 2015-07-05 04:10:00 [facility] Diastolic (mm Hg) 2015-07-05 04:10:00 [facility] BMI Calculated 2015-07-04 18:05:00 [facility] Weight 2015-07-04 18:05:00 [facility] Height 2015-07-04 18:05:00 152.4 cm [facility] Temperature Oral (F) 2015-07-04 18:05:00 97.9 F [facility] Respitory Rate 2015-07-04 18:05:00 [facility] Heart Rate 2015-07-04 18:05:00 [facility] Systolic (mm Hg) 2015-07-04 18:05:00 [facility] Diastolic (mm Hg) 2015-07-04 18:05:00 [facility] [place] BMI Calculated 2015-06-04 04:13:00 [facility] [place] Weight 2015-06-04 04:13:00 [facility] Height 2015-06-04 04:13:00 152.4 cm [facility] Temperature Oral (F) 2015-06-04 04:13:00 98.8 F [facility] Respitory Rate 2015-06-04 04:13:00 [facility] [place] Heart Rate 2015-06-04 04:13:00 [facility] Systolic (mm Hg) 2015-06-04 04:13:00 [facility] [place] Diastolic (mm Hg) 2015-06-04 04:13:00 [facility] Systolic (mm Hg) 2015-05-18 22:47:00 [facility] Diastolic (mm Hg) 2015-05-18 22:47:00 [facility] Temperature Oral (F) 2015-05-18 22:47:00 96.6 F [facility] Heart Rate 2015-05-18 22:47:00 [facility] Respitory Rate 2015-05-18 22:47:00 [facility] [place] Systolic (mm Hg) 2015-05-18 22:30:00 [facility] [place] Diastolic (mm Hg) 2015-05-18 22:30:00 [facility] Systolic (mm Hg) 2015-05-18 21:00:00 [facility] Diastolic (mm Hg) 2015-05-18 21:00:00 [facility] [place] Temperature Oral (F) 2015-05-18 21:00:00 98.1 F [facility] Respitory Rate 2015-05-18 21:00:00 [facility] [place] Temperature Oral (F) 2015-05-18 19:21:00 98.2 F [facility] Heart Rate 2015-05-18 19:21:00 [facility] Respitory Rate 2015-05-18 19:21:00 [facility] Heart Rate 2015-05-18 17:10:00 [facility] Respitory Rate 2015-05-09 20:00:00 [facility] Systolic (mm Hg) 2015-05-09 20:00:00 [facility] [place] Diastolic (mm Hg) 2015-05-09 20:00:00 [facility] [place] Temperature Oral (F) 2015-05-09 20:00:00 97.5 F [facility] Temperature Oral (F) 2015-05-09 19:10:00 97.5 F [facility] Systolic (mm Hg) 2015-05-09 19:10:00 [facility] [place] Diastolic (mm Hg) 2015-05-09 19:10:00 [facility] Respitory Rate 2015-05-09 19:10:00 [facility] [place] Systolic (mm Hg) 2015-05-09 18:41:00 [facility] Diastolic (mm Hg) 2015-05-09 18:41:00 [facility] Weight 2015-05-09 17:37:00 [facility] BMI Calculated 2015-05-09 17:37:00 [facility] Height 2015-05-09 17:37:00 152.4 cm [facility] Temperature Oral (F) 2015-05-09 17:37:00 98.9 F [facility] Respitory Rate 2015-05-09 17:37:00 [facility] Heart Rate 2015-05-09 17:37:00 [facility] Systolic (mm Hg) 2015-05-03 00:04:00 [facility] Diastolic (mm Hg) 2015-05-03 00:04:00 [facility] Heart Rate 2015-05-03 00:04:00 [facility] Respitory Rate 2015-05-03 00:04:00 [facility] Temperature Oral (F) 2015-05-03 00:04:00 98.5 F [facility] Heart Rate 2015-05-02 21:17:00 [facility] Respitory Rate 2015-05-02 21:17:00 [facility] [place] Systolic (mm Hg) 2015-05-02 21:17:00 [facility] Diastolic (mm Hg) 2015-05-02 21:17:00 [facility] [place] Heart Rate 2015-05-02 20:24:00 [facility] Temperature Oral (F) 2015-05-02 20:24:00 98.1 F [facility] Systolic (mm Hg) 2015-05-02 20:24:00 [facility] [place] Diastolic (mm Hg) 2015-05-02 20:24:00 [facility] Respitory Rate 2015-05-02 20:24:00 [facility] Temperature Oral (F) 2015-05-02 18:35:00 98.9 F [facility] Systolic (mm Hg) 2015-04-11 19:45:00 [facility] Diastolic (mm Hg) 2015-04-11 19:45:00 [facility] [place] Temperature Oral (F) 2015-04-11 19:45:00 98.7 F [facility] Respitory Rate 2015-04-11 19:45:00 [facility] Heart Rate 2015-04-11 19:45:00 [facility] Weight 2015-04-11 16:35:00 [facility] Temperature Oral (F) 2015-04-11 16:35:00 98.4 F [facility] Systolic (mm Hg) 2015-04-11 16:35:00 [facility] Diastolic (mm Hg) 2015-04-11 16:35:00 [facility] Respitory Rate 2015-04-11 16:35:00 [facility] Heart Rate 2015-04-11 16:35:00 [facility] Systolic (mm Hg) 2015-03-30 22:06:00 [facility] [place] Diastolic (mm Hg) 2015-03-30 22:06:00 [facility] Temperature Oral (F) 2015-03-30 22:06:00 97.9 F [facility] Heart Rate 2015-03-30 22:06:00 [facility] Respitory Rate 2015-03-30 22:06:00 [facility] BMI Calculated 2015-03-30 19:44:00 [facility] Height 2015-03-30 19:44:00 152.4 cm [facility] Systolic (mm Hg) 2015-03-30 19:44:00 [facility] Diastolic (mm Hg) 2015-03-30 19:44:00 [facility] [place] Respitory Rate 2015-03-30 19:44:00 [facility] Heart Rate 2015-03-30 19:44:00 [facility] Weight 2015-03-30 19:44:00 [facility] Temperature Oral (F) 2015-03-30 19:44:00 97.9 F [facility] Respitory Rate 2015-03-24 21:57:00 [facility] Temperature Oral (F) 2015-03-24 21:57:00 97.9 F [facility] Heart Rate 2015-03-24 21:57:00 [facility] Systolic (mm Hg) 2015-03-24 21:57:00 [facility] Diastolic (mm Hg) 2015-03-24 21:57:00 [facility] Heart Rate 2015-03-24 17:28:00 [facility] Temperature Oral (F) 2015-03-24 17:28:00 98.8 F [facility] Respitory Rate 2015-03-24 17:28:00 [facility] Systolic (mm Hg) 2015-03-24 17:28:00 [facility] Diastolic (mm Hg) 2015-03-24 17:28:00 [facility] Heart Rate 2015-03-24 13:08:00 [facility] Temperature Oral (F) 2015-03-24 13:08:00 98.4 F [facility] Respitory Rate 2015-03-24 13:08:00 [facility] Systolic (mm Hg) 2015-03-24 13:08:00 [facility] Diastolic (mm Hg) 2015-03-24 13:08:00 [facility] BMI Calculated 2015-03-22 01:41:00 [facility] Weight 2015-03-22 01:41:00 [facility] Height 2015-03-22 01:41:00 152.4 cm [facility] BMI Calculated 2015-03-21 18:42:00 [facility] Weight 2015-03-21 18:42:00 [facility] Height 2015-03-21 18:42:00 152.4 cm [facility] Systolic (mm Hg) 2015-03-11 22:39:00 [facility] Diastolic (mm Hg) 2015-03-11 22:39:00 [facility] Respitory Rate 2015-03-11 22:39:00 [facility] Heart Rate 2015-03-11 22:39:00 [facility] Temperature Oral (F) 2015-03-11 22:39:00 98.1 F [facility] BMI Calculated 2015-03-11 19:44:00 [facility] Weight 2015-03-11 19:44:00 [facility] Systolic (mm Hg) 2015-03-11 19:44:00 [facility] [place] Diastolic (mm Hg) 2015-03-11 19:44:00 [facility] Temperature Oral (F) 2015-03-11 19:44:00 97.9 F [facility] Heart Rate 2015-03-11 19:44:00 [facility] Respitory Rate 2015-03-11 19:44:00 [facility] Height 2015-03-11 19:44:00 152.4 cm [facility] Temperature Oral (F) 2015-03-05 10:15:00 97.9 F [facility] Systolic (mm Hg) 2015-03-05 10:15:00 [facility] Diastolic (mm Hg) 2015-03-05 10:15:00 [facility] Respitory Rate 2015-03-05 10:15:00 [facility] Respitory Rate 2015-03-05 09:53:00 [facility] Temperature Oral (F) 2015-03-05 09:53:00 97.8 F [facility] Systolic (mm Hg) 2015-03-05 09:53:00 [facility] Diastolic (mm Hg) 2015-03-05 09:53:00 [facility] Respitory Rate 2015-03-05 06:30:00 [facility] Systolic (mm Hg) 2015-03-05 06:30:00 [facility] [place] Diastolic (mm Hg) 2015-03-05 06:30:00 [facility] Temperature Oral (F) 2015-03-05 06:20:00 97.7 F [facility] Heart Rate 2015-03-05 06:20:00 [facility] Heart Rate 2015-03-05 05:46:00 [facility] Height 2015-03-05 05:46:00 152.4 cm [facility] BMI Calculated 2015-03-05 05:46:00 [facility] Weight 2015-03-05 05:46:00 [facility] Systolic (mm Hg) 2015-02-25 20:55:00 [facility] [place] Diastolic (mm Hg) 2015-02-25 20:55:00 [facility] Temperature Oral (F) 2015-02-25 20:55:00 97.9 F [facility] Heart Rate 2015-02-25 20:55:00 [facility] Respitory Rate 2015-02-25 20:55:00 [facility] Temperature Oral (F) 2015-02-25 17:18:00 98 F [facility] Heart Rate 2015-02-25 17:18:00 [facility] Respitory Rate 2015-02-25 17:18:00 [facility] Systolic (mm Hg) 2015-02-25 17:18:00 [facility] Diastolic (mm Hg) 2015-02-25 17:18:00 [facility] Systolic (mm Hg) 2015-02-25 12:00:00 [facility] Diastolic (mm Hg) 2015-02-25 12:00:00 [facility] Respitory Rate 2015-02-25 12:00:00 [facility] Heart Rate 2015-02-25 12:00:00 [facility] Temperature Oral (F) 2015-02-25 12:00:00 97.8 F [facility] Height 2015-02-24 16:11:00 152.4 cm [facility] BMI Calculated 2015-02-24 16:11:00 [facility] Weight 2015-02-24 16:11:00 [facility] Heart Rate 2015-02-18 20:17:00 [facility] Temperature Oral (F) 2015-02-18 20:17:00 97.3 F [facility] Systolic (mm Hg) 2015-02-18 20:17:00 [facility] [place] Diastolic (mm Hg) 2015-02-18 20:17:00 [facility] Respitory Rate 2015-02-18 20:17:00 [facility] Heart Rate 2015-02-18 16:13:00 [facility] Respitory Rate 2015-02-18 16:13:00 [facility] Systolic (mm Hg) 2015-02-18 16:13:00 [facility] Diastolic (mm Hg) 2015-02-18 16:13:00 [facility] Temperature Oral (F) 2015-02-18 16:13:00 97.5 F [facility] Temperature Oral (F) 2015-02-18 12:19:00 97.9 F [facility] Systolic (mm Hg) 2015-02-18 12:19:00 [facility] [place] Diastolic (mm Hg) 2015-02-18 12:19:00 [facility] [place] Respitory Rate 2015-02-18 12:19:00 [facility] Heart Rate 2015-02-18 12:19:00 [facility] Weight 2015-02-17 02:30:00 [facility] Height 2015-02-17 02:30:00 152.4 cm [facility] BMI Calculated 2015-02-17 02:30:00 [facility] Weight 2015-02-16 20:42:00 [facility] BMI Calculated 2015-02-16 20:42:00 [facility] Height 2015-02-16 20:42:00 152.4 cm [facility] Respitory Rate 2013-12-25 19:27:00 [facility] Heart Rate 2013-12-25 19:27:00 [facility] Diastolic (mm Hg) 2013-12-25 19:27:00 [facility] Systolic (mm Hg) 2013-12-25 19:27:00 [facility] [place] Temperature Oral (F) 2013-12-25 19:27:00 98.3 F [facility] BMI Calculated 2013-12-25 16:48:00 [facility] Weight 2013-12-25 16:48:00 [facility] Height 2013-12-25 16:48:00 152.4 cm [facility] Respitory Rate 2013-12-25 16:48:00 [facility] Heart Rate 2013-12-25 16:48:00 [facility] Diastolic (mm Hg) 2013-12-25 16:48:00 [facility] Systolic (mm Hg) 2013-12-25 16:48:00 [facility] [place] Temperature Oral (F) 2013-12-25 16:48:00 98.8 F [facility] Heart Rate 2013-12-23 00:27:00 [facility] Systolic (mm Hg) 2013-12-23 00:27:00 [facility] Respitory Rate 2013-12-23 00:27:00 [facility] Temperature Oral (F) 2013-12-23 00:27:00 98.3 F [facility] Diastolic (mm Hg) 2013-12-23 00:27:00 [facility] Diastolic (mm Hg) 2013-12-22 23:06:00 [facility] Temperature Oral (F) 2013-12-22 23:06:00 98.4 F [facility] Systolic (mm Hg) 2013-12-22 23:06:00 [facility] [place] Respitory Rate 2013-12-22 23:06:00 [facility] Heart Rate 2013-12-22 23:06:00 [facility] Weight 2013-12-22 20:46:00 [facility] Temperature Oral (F) 2013-12-22 20:46:00 98.7 F [facility] Systolic (mm Hg) 2013-12-22 20:46:00 [facility] [place] Diastolic (mm Hg) 2013-12-22 20:46:00 [facility] Respitory Rate 2013-12-22 20:46:00 [facility] Heart Rate 2013-12-22 20:46:00 [facility] Diastolic (mm Hg) 2013-12-17 20:30:00 [facility] [place] Respitory Rate 2013-12-17 20:30:00 [facility] Systolic (mm Hg) 2013-12-17 20:30:00 [facility] Systolic (mm Hg) 2013-12-17 19:06:00 [facility] [place] Diastolic (mm Hg) 2013-12-17 19:06:00 [facility] Respitory Rate 2013-12-17 19:06:00 [facility] Systolic (mm Hg) 2013-12-17 18:54:00 [facility] Diastolic (mm Hg) 2013-12-17 18:54:00 [facility] Temperature Oral (F) 2013-12-17 17:09:00 98.1 F [facility] Respitory Rate 2013-12-17 16:50:00 [facility] Temperature Oral (F) 2013-12-17 09:00:00 97.1 F [facility] Height 2013-12-17 02:58:00 152.4 cm [facility] Weight 2013-12-17 02:58:00 [facility] BMI Calculated 2013-12-17 02:58:00 [facility] Temperature Oral (F) 2013-12-17 02:55:00 98.1 F [facility] Height 2013-12-16 17:19:00 152.4 cm [facility] BMI Calculated 2013-12-16 17:19:00 [facility] Weight 2013-12-16 17:19:00 [facility] Heart Rate 2013-12-16 17:19:00 [facility] Temperature Oral (F) 2013-11-08 21:00:00 98 F [facility] Diastolic (mm Hg) 2013-11-08 21:00:00 [facility] Respitory Rate 2013-11-08 21:00:00 [facility] Systolic (mm Hg) 2013-11-08 21:00:00 [facility] Temperature Oral (F) 2013-11-08 19:13:00 97.6 F [facility] Diastolic (mm Hg) 2013-11-08 19:13:00 [facility] Systolic (mm Hg) 2013-11-08 19:13:00 [facility] Respitory Rate 2013-11-08 19:13:00 [facility] [place] Systolic (mm Hg) 2013-11-08 16:18:00 [facility] Respitory Rate 2013-11-08 16:18:00 [facility] Diastolic (mm Hg) 2013-11-08 16:18:00 [facility] Temperature Oral (F) 2013-11-08 11:34:00 99.0 F [facility] Heart Rate 2013-11-08 11:34:00 [facility] Heart Rate 2013-11-08 08:04:[address] [facility] [place] BMI Calculated 2013-11-08 04:51:00 [facility] Height 2013-11-08 04:51:00 152.4 cm [facility] Weight 2013-11-08 04:51:[address] [facility] [place] Heart Rate 2013-11-08 04:51:[address] [facility] [place] Procedures Procedure Date / Time Performing Clinician Source Performed Cardiac catheterization [facility] procedure Stent placement<sup>1</sup> Eleazar [facility] Plan of Care Planned Activity Planned Date Details Comments Source Future Scheduled Test 2021-05-29 IMM Influenza Seasonal [facility] 00:00:00 May to October (>/= 19 yrs) [code = IMM Influenza Seasonal May to October (>/= 19 yrs)] Future Scheduled Test 2015 IMM Pneumococcal Age 65 [facility] 00:00:00 and Up [code = IMM Pneumococcal Age 65 and Up] Future Scheduled Test 2000 Screening for malignant [facility] 00:00:00 neoplasm of colon (procedure) [code = 925124672] Future Scheduled Test 1990 Breast Cancer Scrn [facility] 00:00:00 (Yearly) [code = Breast Cancer Scrn (Yearly)] Future Scheduled Test 1962 COVID-19 Vaccine (1) [facility] 00:00:00 [code = COVID-19 Vaccine (1)] Encounters Start End Encounter Admission Attending Care Care Encounter Source Date/Time Date/Time Type Type Clinicians Facility Department ID 2020-10-15 2020-10-15 Emergency [facility] [id number] [facility] 02:02:00 04:45:00 Wilberto Freitas [id number] ity [facility] [id number] [facility] [id number] [address] 2020-10-15 2020-10-15 Emergency Connor [facility] [id number] 02:02:00 04:45:00 Wilberto Freitas [id number] [place] [id number] [place] [id number] [facility] 2020-10-15 2020-10-15 Emergency X CONNOR [facility] ERT [id number] [facility] 02:02:00 02:02:00 WILBERTO streeter [facility] 2020-01-21 2020-01-21 Outpatient E LEELEE [facility] MED [id number] [facility] 05:31:00 11:30:00 [place] 2019-10-15 2019-10-15 Emergency E BERNARDINO REID [facility] [id number] [facility] 13:12:00 15:34:00 2019-05-20 2019-05-20 Emergency E [facility] [id number] [facility] 15:19:00 15:19:00 2019-02-25 2019-02-25 Emergency E [facility] [id number] [facility] 10:56:00 10:56:00 2018-08-21 2018-08-21 Emergency [facility] [id number] [place] 18:32:58 18:32:58 Health 2018-08-21 2018-08-21 Emergency [facility] [id number] [place] 17:47:59 17:47:59 [facility] 2018-08-21 2018-08-21 Emergency [facility] [id number] [place] 16:16:06 16:16:06 Health 2018-08-16 2018-08-16 Emergency [facility] [id number] [place] 22:04:00 22:04:00 [facility] 2018-08-16 2018-08-16 Emergency [facility] [id number] [place] 21:21:42 21:21:42 Health 2018-05-18 2018-05-18 Emergency [facility] [id number] [place] 14:51:52 14:51:52 [facility] 2018-03-08 2018-03-08 Emergency [facility] [id number] [place] 15:12:17 15:12:17 [facility] 2018-01-16 2018-01-16 Emergency [facility] [id number] [place] 17:53:03 17:53:03 [facility] 2018-01-16 2018-01-16 Emergency [facility] [id number] [address] [place] [address] 00:00:00 00:00:00 [facility] 2018-01-16 2018-01-16 Outpatient [facility] [id number] [address] [place] [address] 00:00:00 00:00:00 [facility] 2017-11-11 2017-11-11 Emergency E [facility] [id number] [facility] 16:37:00 16:37:[address] [facility] 2017-01-19 2017-01-19 Emergency [facility] [id number] [facility] 17:18:00 23:37:00 geovanny Wing 34 l [facility] 2017-01-16 2017-01-17 Emergency [facility] [id number] [facility] 23:22:00 02:34:00 geovanny Wing 33 [facility] 2016-11-29 2016-11-29 Emergency [facility] [id number] [facility] 00:17:00 04:13:00 geovanny Wing 32 l [facility] 2016-11-06 2016-11-07 Emergency [facility] [id number] [facility] 23:34:00 03:03:00 geovanny Wing 31 l [facility] 2016-10-10 2016-10-11 Observatio [facility] [id number] [facility] 17:45:00 19:54:00 jay Wing 30 [facility] 2016-09-15 2016-09-15 Emergency [facility] [id number] [facility] 03:19:00 06:56:00 geovanny Wing 29 l [facility] 2016-04-14 2016-04-14 Emergency [facility] [id number] [facility] 02:11:00 06:37:00 geovanny Wing 28 [facility] 2016-03-11 2016-03-12 OBS [facility] [id number] [facility] 19:41:00 20:25:00 Observatio geovanny Wing 27 l n Patient [facility] 2016-03-05 2016-03-06 EC [facility] [id number] [facility] 21:54:00 02:21:00 Emergency [facility] [place] [facility] l [facility] 2016-02-29 2016-03-01 EC nullFlavo [facility] [id number] [facility] 22:25:00 01:29:00 Emergency [facility] [place] 25 l Center [facility] 2015-09-04 2015-09-05 [address]BS [address]Fl[address] [facility] [id number] [facility] 03:30:00 16:26:00 [facility]atio [facility] [place] 24 l n Patient [facility] 2015-07-15 2015-07-16 OBS [address]Fl[address] [facility] [id number] [facility] 18:00:00 21:30:00 [facility] [place] 23 l n Patient [facility] 2015-07-05 2015-07-05 EC nullFlavo [facility] [id number] [facility] 04:07:00 07:09:00 Emergency [facility] [place] 22 l [facility] 2015-07-04 2015-07-04 EC nullFlavo [facility] [id number] [facility] 17:57:00 20:54:00 Emergency r [facility] 21 l [facility] 2015-06-04 2015-06-04 EC nullFlavo [facility] [id number] [facility] 04:00:00 07:09:00 Emergency [facility] [place] 20 l [facility] 2015-05-18 2015-05-18 EC [address]Fl[address] [facility] [id number] [facility] 16:55:00 23:04:00 Emergency [facility] [place] 19 l [facility] 2015-05-09 2015-05-09 EC [address]Fl[address] [facility] [id number] [facility] 17:15:00 20:10:00 Emergency [facility] [place] 18 l [facility] 2015-05-02 2015-05-03 EC nullFlavo [facility] [id number] [facility] 18:18:00 00:05:00 Emergency r [place] 17 l [facility] 2015-04-11 2015-04-11 EC [address]Fl[address] [facility] [id number] [facility] 16:25:00 19:47:00 Emergency [facility] [place] 16 l [facility] 2015-03-30 2015-03-30 EC [address]Fl[address] [facility] [id number] [facility] 19:39:00 22:11:00 Emergency [facility] [place] 15 l [facility] 2015-03-21 2015-03-24 Inpatient nullFlavo [facility] [id number] [facility] 18:24:00 22:30:00 r [place] 14 l [facility] 2015-03-11 2015-03-11 EC [address]Fl[address] [facility] [id number] [facility] 19:43:00 22:41:00 Emergency [facility] [place] 13 l [facility] 2015-03-05 2015-03-05 EC nullFlavo [facility] [id number] [facility] 05:43:00 10:21:00 Emergency r [place] 12 l [facility] 2015-02-24 2015-02-26 OBS [address]Fl[address] [facility] [id number] [facility] 15:34:00 01:14:00 Observatio [facility] [place] 11 l Patient [facility] 2015-02-16 2015-02-18 OBS nullFlavo [facility] [id number] [facility] 20:36:00 21:00:00 Observatio [facility] [place] 10 [facility] Patient [facility] 2013-12-25 2013-12-25 EC [address]Fl[address] [facility] [id number] [facility] 16:37:00 19:52:00 Emergency r [place] 09 l [facility] 2013-12-22 2013-12-23 EC nullFlavo [facility] [id number] [facility] 20:43:00 00:29:00 Emergency r [place] 08 [facility] 2013-12-16 2013-12-17 OBS nullFlavo [facility] [id number] [facility] 17:18:00 22:45:00 Observatio r [place] 07 [facility] 2013-11-08 2013-11-08 OBS nullFlavo [facility] [id number] [facility] 04:50:00 23:00:00 [facility]atio [facility] [place] [id number] 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 Final Dictated by: MD Fonseca Daniel RDictated DT/TM: 06/05/2018 11:20 pmSigned by: MD Fonseca Daniel RSigned (Electronic Signature): 06/05/2018 11:24 pm URINE AND STOOL 2017-01-19 19:21:00 Test Item Value Reference Range Interpretation Comme nts UA Color (test code = UA Color) [facility] [id number] 19:21:00 Test Item Value Reference Range Interpretation Comments UA Urobilinogen (test code = UA <=1.0 mg/dL 0.1-1.0 Urobilinogen) [facility] AND [id number] 19:21:00 Test Item Value Reference Range Interpretation Comments UA Ketones (test code = UA Negative mg/dL Ketones) [facility] AND [id number] 19:21:00 Test Item Value Reference Range Interpretation Comments UA Bili (test code = Negative *NA*(01/19/17 UA Bili) 2:21 PM) [facility] AND [id number] 19:21:00 Test Item Value Reference Range Interpretation Comments UA Glucose (test code = UA Negative mg/dL Glucose) [facility] AND [id number] 19:21:00 Test Item Value Reference Range Interpretation Comments UA Protein (test code = UA Negative mg/dL Protein) [facility] AND [id number] 19:21:00 Test Item Value Reference Range Interpretation Comments UA Leuk Est (test Negative (01/19/17 2:21 code = UA Leuk Est) PM) [facility] AND [id number] 19:21:00 Test Item Value Reference Range Interpretation Comments UA Nitrite (test code Negative (01/19/17 2:21 = UA Nitrite) PM) [facility] AND [id number] 19:21:00 Test Item Value Reference Range Interpretation Comments UA Blood (test code = Negative (01/19/17 2:21 UA Blood) PM) [facility] [id number] 19:21:00 Test Item Value Reference Range Interpretation Comments UA RBC (test code = 1 See_Comment [Automa marcelle message] The UA RBC) system which ge nerated this result transmit marcelle reference range : <=2. The reference range was not used to interpr et this result as aranza l/abnormal. [facility] [id number] 19:21:00 Test Item Value Reference Range Interpretation Comments UA WBC (test code = 1 See_Comment [Automa marcelle message] The UA WBC) system which ge nerated this result transmit marcelle reference range : <=5. The reference range was not used to interpr et this result as aranza l/abnormal. [facility] AND [id number] 19:21:00 Test Item Value Reference Range Interpretation Comments UA Sq Epi (test code = UA Sq Epi) Few /LPF [facility] AND [id number] 19:21:00 Test Item Value Reference Range Interpretation Comments UA pH (test code = UA pH) 7.0 5.0-8.0 [facility] [id number] 19:21:00 Test Item Value Reference Range Interpretation Comments UA Spec Grav (test code = UA Spec Grav) 1.[address] [facility] AND [id number] 19:21:00 Test Item Value Reference Range Interpretation Comments UA Turbidity (test code = Clear (01/19/17 2:21 UA Turbidity) PM) [facility] [id number] 18:07:00 Test Item Value Reference Range Interpretation Comments CK MB (test code = CK MB) 3.0 0.5-3.6 [facility] [id number] 18:07:00 Test Item Value Reference Range Interpretation Comments Troponin-I (test code no gt See_Comment [Auto mated message] The = Troponin-I) system which g enerated this result transmit marcelle reference range : <=0.40. The reference r melody was not used to interpr et this result as aranza l/abnormal. [facility]Invest[facility]annCHEM [id number] 18:07:00 Test Item Value Reference Range Interpretation Comments Lipase Lvl (test code = Lipase Lvl) 231 73-393 [facility]2017-05-24 18:07:00 Test Item Value Reference Range Interpretation Comments B/C Ratio (test code = B/C Ratio) 9 6-25 [facility]2017-05-24 18:07:00 Test Item Value Reference Range Interpretation Comments AGAP (test code = AGAP) 8.4 10.0-20.0 [facility]2017-05-24 18:07:00 Test Item Value Reference Range Interpretation Comments A/G Ratio (test code = A/G Ratio) 1.0 0.7-1.6 [facility]2017-05-24 18:07:00 Test Item Value Reference Range Interpretation Comments Globulin (test code = Globulin) 3.6 2.7-4.2 [facility]2017-05-24 18:07:00 Test Item Value Reference Range Interpretation Comments BUN (test code = BUN) 7 7- [facility]2017-05-24 18:07:00 Test Item Value Reference Range Interpretation Comments CO2 (test code = CO2) 32 24-32 [facility]2017-05-24 18:07:00 Test Item Value Reference Range Interpretation Comments Chloride Lvl (test code = Chloride Lvl) 104 95-109 [facility]2017-05-24 18:07:00 Test Item Value Reference Range Interpretation Comments Potassium Lvl (test code = Potassium 3.4 3.5-5.1 Lvl) [facility]2017-05-24 18:07:00 Test Item Value Reference Range Interpretation Comments Sodium Lvl (test code = Sodium Lvl) 141 135-145 [facility]2017-05-24 18:07:00 Test Item Value Reference Range Interpretation Comments Creatinine Lvl (test code = Creatinine 0.79 0.50-1.40 Lvl) [facility]2017-05-24 18:07:00 Test Item Value Reference Range Interpretation Comments Albumin Lvl (test code = Albumin Lvl) 3.6 3.5-5.0 [facility]2017-05-24 18:07:00 Test Item Value Reference Range Interpretation Comments Calcium Lvl (test code = Calcium Lvl) 9.1 8.5-10.5 [facility]2017-05-24 18:07:00 Test Item Value Reference Range Interpretation Comments ALT (test code = ALT) 25 See_Comment [Auto mated message] The system which ge nerated this result transmit marcelle reference range : <=65. The reference range was not used to interpr et this result as aranza l/abnormal. [facility]2017-05-24 18:07:00 Test Item Value Reference Range Interpretation Comments Total Protein (test code = Total 7.2 6.4-8.4 Protein) [facility]2017-05-24 18:07:00 Test Item Value Reference Range Interpretation Comments Bili Total (test code = Bili Total) 1.1 0.2-1.3 [facility]2017-05-24 18:07:00 Test Item Value Reference Range Interpretation Comments Alk Phos (test code = Alk Phos) 111 39-136 [facility]2017-05-24 18:07:00 Test Item Value Reference Range Interpretation Comments AST (test code = AST) 31 See_Comment [Auto mated message] The system which ge nerated this result transmit marcelle reference range : <=37. The reference range was not used to interpr et this result as aranza l/abnormal. [facility]2017-05-24 18:07:00 Test Item Value Reference Range Interpretation Comments eGFR (test code = eGFR) 90 [facility]2017-05-24 18:07:00 Test Item Value Reference Range Interpretation Comments Glucose Lvl (test code = Glucose Lvl) 73 70-99 [facility]2017-05-24 18:07:00 Test Item Value Reference Range Interpretation Comments Amylase Lvl (test code = Amylase Lvl) 75 25-115 [place] 735557-05-24 18:07:00 Test Item Value Reference Range Interpretation Comments PTT (test code = PTT) 31.3 s 22.9-35.8 [place] [address]-05-24 18:07:00 Test Item Value Reference Range Interpretation Comments MPV (test code = MPV) 8.5 7.4-10.4 [facility] AliceTbccfdmVNMEVZMJFE6825-03-50 18:07:00 Test Item Value Reference Range Interpretation Comments Hct (test code = Hct) 42.0 36.0-48.0 [facility] AliceIkscuwhMLNBDMODWE4523-29-08 18:07:00 Test Item Value Reference Range Interpretation Comments RBC (test code = RBC) 4.92 4.20-5.40 [facility] AliceTzcpocaSCLDFQYKQI5924-76-14 18:07:00 Test Item Value Reference Range Interpretation Comments Hgb (test code = Hgb) 14.4 12.0-16.0 [facility] AliceRvdsodvOREJNRZDXL4601-28-14 18:07:00 Test Item Value Reference Range Interpretation Comments RDW (test code = RDW) 14.2 11.5-14.5 [facility] AliceUknqoigJDOYDLBPOQ2606-50-21 18:07:00 Test Item Value Reference Range Interpretation Comments Platelet (test code = Platelet) 236 133-450 [facility] AliceJnqcinwQKBKTNJDSB5810-64-67 18:07:00 Test Item Value Reference Range Interpretation Comments MCHC (test code = MCHC) 34.2 32.0-36.0 [facility] AliceVumessiKCUXOWALWD1730-85-30 18:07:00 Test Item Value Reference Range Interpretation Comments MCH (test code = MCH) 29.2 pg 27.0-31.0 [facility] AliceMnoozfxOIDGKEFNXH9854-29-19 18:07:00 Test Item Value Reference Range Interpretation Comments MCV (test code = MCV) 85.5 80.0-98.0 [facility] AliceZpxkclaSJGETPYWLQ2629-64-44 18:07:00 Test Item Value Reference Range Interpretation Comments WBC (test code = WBC) 7.7 3.7-10.4 [facility] AliceLucyjrcZNJDTLBPKJ2168-33-27 18:07:00 Test Item Value Reference Range Interpretation Comments PT (test code = PT) 13.7 s 12.0-14.7 [facility] AliceFfvorroGQEDXCANLS1027-66-49 18:07:00 Test Item Value Reference Range Interpretation Comments INR (test code = INR) 1.03 0.85-1.17 [facility] AliceEmqzznaRUBBOIFOIY0902-41-57 18:07:00 Test Item Value Reference Range Interpretation Comments Eosinophils # (test code 0.3 See_Comment [A utomated message] The = Eosinophils #) system ic h generated this result tra nsmitted reference range : <=0.5. The reference r melody was not used to int erpret this result as normal/abnormal . [facility] AliceXtvxfuuBGQOECSZYY4792-64-58 18:07:00 Test Item Value Reference Range Interpretation Comments Segs (test code = Segs) 68.3 45.0-75.0 [facility] AliceRtzvrtkCJNIXRKOWU2340-51-69 18:07:00 Test Item Value Reference Range Interpretation Comments Monocytes # (test code 0.6 See_Comment [Aut omated message] The = Monocytes #) system which generated this result tra nsmitted reference range : <=0.8. The reference r melody was not used to int erpret this result as normal/abnormal . [facility] AliceVnaidyzDTPNXEVCIG0427-74-70 18:07:00 Test Item Value Reference Range Interpretation Comments Segs-Bands # (test code = Segs-Bands #) 5.3 1.5-8.1 [facility] AliceXyqadgrUADKNIJFEH4019-26-33 18:07:00 Test Item Value Reference Range Interpretation Comments Eosinophils (test code = 4.5 See_Comment [A utomated message] The Eosinophils) system which ge nerated this result tra nsmitted reference range : <=4.0. The reference r melody was not used to int erpret this result as normal/abnormal . [facility] AlicePvlanltMZFWKSSQEA0803-67-98 18:07:00 Test Item Value Reference Range Interpretation Comments Basophils (test code = 0.6 See_Comment [Aut omated message] The Basophils) system which ge nerated this result tra nsmitted reference range : <=1.0. The reference r melody was not used to int erpret this result as normal/abnormal . [facility] AliceAipbvoxMJZHXUIDDN3970-41-38 18:07:00 Test Item Value Reference Range Interpretation Comments Lymphocytes # (test code = Lymphocytes 1.4 1.0-5.5 #) [facility] AlicePsqejjdFJTVCCHEFG9366-09-43 18:07:00 Test Item Value Reference Range Interpretation Comments Monocytes (test code = Monocytes) 7.8 2.0-12.0 [facility] AliceTgrleclCCVZGXWZKD6239-28-12 18:07:00 Test Item Value Reference Range Interpretation Comments Lymphocytes (test code = Lymphocytes) 18.8 20.0-40.0 [facility]2017-05-22 00:23:00 Test Item Value Reference Range Interpretation Comments U Cocaine Scr (test Positive *ABN*(01/16/17 code = U Cocaine Scr) 7:23 PM) [facility] [id number] 00:23:00 Test Item Value Reference Range Interpretation Comments U Phencyc Scr (test Negative *NA*(01/16/17 code = U Phencyc Scr) 7:23 PM) [facility] [id number] 00:23:00 Test Item Value Reference Range Interpretation Comments U Cannab Scr (test Negative *NA*(01/16/17 code = U Cannab Scr) 7:23 PM) [facility] [id number] 00:23:00 Test Item Value Reference Range Interpretation Comments U Opiate Scr (test Negative *NA*(01/16/17 code = U Opiate Scr) 7:23 PM) [facility] [id number] 00:23:00 Test Item Value Reference Range Interpretation Comments UDS Note (test code = See Note (01/16/17 7:23 UDS Note) PM) [facility] [id number] 00:23:00 Test Item Value Reference Range Interpretation Comments U Keyla Scr (test code Negative *NA*(01/16/17 = U Keyla Scr) 7:23 PM) [facility] [id number] 00:23:00 Test Item Value Reference Range Interpretation Comments U Amph Scr (test code Negative *NA*(01/16/17 = U Amph Scr) 7:23 PM) [facility] [id number] 00:23:00 Test Item Value Reference Range Interpretation Comments U Benzodia Scr (test Negative *NA*(01/16/17 code = U Benzodia Scr) 7:23 PM) [facility] [id number] 00:23:00 Test Item Value Reference Range Interpretation Comments UA Ketones (test code Negative *NA*(01/16/17 = UA Ketones) 7:23 PM) [facility] [id number] 00:23:00 Test Item Value Reference Range Interpretation Comments UA Bili (test code = Negative *NA*(01/16/17 UA Bili) 7:23 PM) [facility] [id number] 00:23:00 Test Item Value Reference Range Interpretation Comments UA Glucose (test code Negative (01/16/17 7:23 = UA Glucose) PM) [facility] AND [id number] 00:23:00 Test Item Value Reference Range Interpretation Comments UA Nitrite (test code Negative (01/16/17 7:23 = UA Nitrite) PM) [facility] AND [id number] 00:23:00 Test Item Value Reference Range Interpretation Comments UA Leuk Est (test Negative (01/16/17 7:23 code = UA Leuk Est) PM) [facility] AND [id number] 00:23:00 Test Item Value Reference Range Interpretation Comments UA Urobilinogen (test code = UA 1.0 0.1-1.0 Urobilinogen) [facility] AND [id number] 00:23:00 Test Item Value Reference Range Interpretation Comments UA Blood (test code = Negative (01/16/17 7:23 UA Blood) PM) [facility] AND [id number] 00:23:00 Test Item Value Reference Range Interpretation Comments UA Turbidity (test code Slight Cloudy = UA Turbidity) (01/16/17 7:23 PM) [facility] AND [id number] 00:23:00 Test Item Value Reference Range Interpretation Comments UA Spec Grav (test code = UA Spec 1.007 1 Grav) [facility] AND [id number] 00:23:00 Test Item Value Reference Range Interpretation Comments UA pH (test code = UA pH) 6.0 1 5.0-8.0 [facility] AND [id number] 00:23:00 Test Item Value Reference Range Interpretation Comments UA Protein (test code Negative (01/16/17 7:23 = UA Protein) PM) [facility] AND [id number] 00:23:00 Test Item Value Reference Range Interpretation Comments UA Color (test code = Yellow *NA*(01/16/17 UA Color) 7:23 PM) [facility] AND [id number] 00:23:00 Test Item Value Reference Range Interpretation Comments UA RBC (test code = 0-2 /HPF See_Comment [Automa marcelle message] The UA RBC) system which ge nerated this result tra nsmitted reference range : <=2. The reference range was not used to interpr et this result as aranza l/abnormal. [facility] [id number] 00:23:00 Test Item Value Reference Range Interpretation Comments UA Bacteria (test code = UA Few /HPF Bacteria) [facility] [id number] 00:23:00 Test Item Value Reference Range Interpretation Comments UA WBC (test code = UA WBC) 0-2 /HPF [facility] AND [id number] 00:23:00 Test Item Value Reference Range Interpretation Comments UA Sq Epi (test code = UA Sq Epi) Few /LPF [facility] CleburneCHF TechnologiesCARVacatiaAC [id number] 23:57:00 Test Item Value Reference Range Interpretation Comments Troponin-I (test code no gt See_Comment [Auto mated message] The = Troponin-I) system which g enerated this result transmit marcelle reference range : <=0.40. The reference r melody was not used to interpr et this result as aranza l/abnormal. [facility] [employer] [id number] 23:57:00 Test Item Value Reference Range Interpretation Comments CK MB (test code = CK MB) 2.0 0.5-3.6 [facility] CleburneSchoooools.comAC NSRQGSB3973-17-48 23:57:00 Test Item Value Reference Range Interpretation Comments Total CK (test code = Total CK) 208 12-191 [facility] CleburneSchoooools.comAC MOIEWRH4518-87-41 23:57:00 Test Item Value Reference Range Interpretation Comments CK MB Index (test 1.0 See_Comment [Automate d message] The code = CK MB Index) system w [facility] generated this result transmit marcelle reference range : <=2.5. The reference range was not used to interpr et this result as aranza l/abnormal. [facility] [employer] [id number] 23:57:00 Test Item Value Reference Range Interpretation Comments eGFR (test code = eGFR) [address] [facility] [employer] [id number] 23:57:00 Test Item Value Reference Range Interpretation Comments CO2 (test code = CO2) 29 24-[address] [facility] [employer] [id number] 23:57:00 Test Item Value Reference Range Interpretation Comments Sodium Lvl (test code = Sodium Lvl) 142 135-[address] [facility] [employer] [id number] 23:57:00 Test Item Value Reference Range Interpretation Comments Glucose Lvl (test code = Glucose Lvl) 105 70-99 [facility]2017-05-21 23:57:00 Test Item Value Reference Range Interpretation Comments BUN (test code = BUN) 15 7- [facility]2017-05-21 23:57:00 Test Item Value Reference Range Interpretation Comments AGAP (test code = AGAP) 11.0 10.0-20.0 [facility]2017-05-21 23:57:00 Test Item Value Reference Range Interpretation Comments B/C Ratio (test code = B/C Ratio) 16 6-25 [facility]2017-05-21 23:57:00 Test Item Value Reference Range Interpretation Comments Calcium Lvl (test code = Calcium Lvl) 9.4 8.5-10.5 [facility]2017-05-21 23:57:00 Test Item Value Reference Range Interpretation Comments Creatinine Lvl (test code = Creatinine 0.94 0.50-1.40 Lvl) [facility]2017-05-21 23:57:00 Test Item Value Reference Range Interpretation Comments Chloride Lvl (test code = Chloride Lvl) 106 95-109 [facility]2017-05-21 23:57:00 Test Item Value Reference Range Interpretation Comments Potassium Lvl (test code = Potassium 4.0 3.5-5.1 Lvl) [facility]2017-05-21 23:57:00 Test Item Value Reference Range Interpretation Comments Albumin Lvl (test code = Albumin Lvl) 3.6 3.5-5.0 [facility]2017-05-21 23:57:00 Test Item Value Reference Range Interpretation Comments ALT (test code = ALT) 24 See_Comment [Auto mated message] The system which ge nerated this result transmit marcelle reference range : <=65. The reference range was not used to interpr et this result as aranza l/abnormal. [facility]2017-05-21 23:57:00 Test Item Value Reference Range Interpretation Comments Bili Total (test code = Bili Total) 0.6 0.2-1.3 [facility]2017-05-21 23:57:00 Test Item Value Reference Range Interpretation Comments Alk Phos (test code = Alk Phos) 107 39-136 [place] 768427-05-21 23:57:00 Test Item Value Reference Range Interpretation Comments AST (test code = AST) 29 See_Comment [Auto mated message] The system which ge nerated this result transmit marcelle reference range : <=37. The reference range was not used to interpr et this result as aranza l/abnormal. [facility]2017-05-21 23:57:00 Test Item Value Reference Range Interpretation Comments A/G Ratio (test code = A/G Ratio) 0.9 0.7-1.6 [facility]2017-05-21 23:57:00 Test Item Value Reference Range Interpretation Comments Globulin (test code = Globulin) 3.9 2.7-4.2 [facility]2017-05-21 23:57:00 Test Item Value Reference Range Interpretation Comments Total Protein (test code = Total 7.5 6.4-8.4 Protein) [facility] [id number] 23:57:00 Test Item Value Reference Range Interpretation Comments Hgb (test code = Hgb) 14.6 12.0-16.0 [place] 735557-05-21 23:57:00 Test Item Value Reference Range Interpretation Comments Hct (test code = Hct) 42.7 36.0-48.0 [facility] AliceJxbgewxLCLRTFKKSP7170-68-60 23:57:00 Test Item Value Reference Range Interpretation Comments MCHC (test code = MCHC) 34.2 32.0-36.0 [facility] AliceQsrxhojZKBQSMGGFB1263-51-20 23:57:00 Test Item Value Reference Range Interpretation Comments MCV (test code = MCV) 85.3 80.0-98.0 [facility] AliceSpyyxckLHKUWDRTTL4329-41-70 23:57:00 Test Item Value Reference Range Interpretation Comments MCH (test code = MCH) 29.2 pg 27.0-31.0 [facility] AliceVfuhasbRJYCSIWQMP4250-88-69 23:57:00 Test Item Value Reference Range Interpretation Comments RDW (test code = RDW) 14.3 11.5-14.5 [facility] AliceRcscsiyZRJLBNBVZN8095-71-62 23:57:00 Test Item Value Reference Range Interpretation Comments Platelet (test code = Platelet) 227 133-450 [facility] AliceVyxjuzdRPXMRLDFEX0080-92-80 23:57:00 Test Item Value Reference Range Interpretation Comments MPV (test code = MPV) 8.0 7.4-10.4 [facility] AliceArzynktFVIXDYZGXG9398-74-15 23:57:00 Test Item Value Reference Range Interpretation Comments WBC (test code = WBC) 6.6 3.7-10.4 [place] [address]-05-21 23:57:00 Test Item Value Reference Range Interpretation Comments RBC (test code = RBC) 5.00 4.20-5.40 [place] [address]-05-21 23:57:00 Test Item Value Reference Range Interpretation Comments Basophils (test code = 0.8 See_Comment [Aut omated message] The Basophils) system which ge nerated this result tra nsmitted reference range : <=1.0. The reference r melody was not used to int erpret this result as normal/abnormal . [place] [address]-05-21 23:57:00 Test Item Value Reference Range Interpretation Comments Segs-Bands # (test code = Segs-Bands #) 4.0 1.5-8.1 [facility] AliceUxyxstfQLCLDMJWER3987-51-27 23:57:00 Test Item Value Reference Range Interpretation Comments Monocytes # (test code 0.5 See_Comment [Aut omated message] The = Monocytes #) system which generated this result tra nsmitted reference range : <=0.8. The reference r melody was not used to int erpret this result as normal/abnormal . [facility] AlicePwzporqQUNTCVYIVR5493-78-01 23:57:00 Test Item Value Reference Range Interpretation Comments Basophils # (test code 0.1 See_Comment [Aut omated message] The = Basophils #) system which generated this result tra nsmitted reference range : <=0.2. The reference r melody was not used to int erpret this result as normal/abnormal . [facility] AliceMdtatqnUCPMQVMPZY6409-12-13 23:57:00 Test Item Value Reference Range Interpretation Comments Lymphocytes # (test code = Lymphocytes 1.8 1.0-5.5 #) [facility] AliceKxibdwfUJXWITVYEQ4874-13-45 23:57:00 Test Item Value Reference Range Interpretation Comments Eosinophils # (test code 0.2 See_Comment [A utomated message] The = Eosinophils #) system whic h generated this result tra nsmitted reference range : <=0.5. The reference r melody was not used to int erpret this result as normal/abnormal . [facility] AliceAmmayrqZNRNDKQCBA7664-47-25 23:57:00 Test Item Value Reference Range Interpretation Comments Segs (test code = Segs) 60.6 45.0-75.0 [facility] AliceLrrubjhDLSBWFNULA3902-31-30 23:57:00 Test Item Value Reference Range Interpretation Comments Monocytes (test code = Monocytes) 8.3 2.0-12.0 [facility] AliceZlygjxbEXFOBKKDJA4439-24-90 23:57:00 Test Item Value Reference Range Interpretation Comments Eosinophils (test code = 3.5 See_Comment [A utomated message] The Eosinophils) system which ge nerated this result tra nsmitted reference range : <=4.0. The reference r melody was not used to int erpret this result as normal/abnormal . [facility] AliceHuaxepiHBPAKIYQXL2079-63-19 23:57:00 Test Item Value Reference Range Interpretation Comments Lymphocytes (test code = Lymphocytes) 26.8 20.0-40.0 [facility]2017-04-03 02:18:00 Test Item Value Reference Range Interpretation Comments UA Ketones (test code Negative *NA*(11/28/16 = UA Ketones) 9:18 PM) [facility] AND [id number] 02:18:00 Test Item Value Reference Range Interpretation Comments UA Blood (test code = Negative (11/28/16 9:18 UA Blood) PM) [facility] AND [id number] 02:18:00 Test Item Value Reference Range Interpretation Comments UA Urobilinogen (test code = UA 1.0 0.1-1.0 Urobilinogen) [facility] AND [id number] 02:18:00 Test Item Value Reference Range Interpretation Comments UA Nitrite (test code Negative (11/28/16 9:18 = UA Nitrite) PM) [facility] AND [id number] 02:18:00 Test Item Value Reference Range Interpretation Comments UA WBC (test code = UA WBC) 6-10 /HPF [facility] AND [id number] 02:18:00 Test Item Value Reference Range Interpretation Comments UA RBC (test code = 0-2 /HPF See_Comment [Automa marcelle message] The UA RBC) system which ge nerated this result tra nsmitted reference range : <=2. The reference range was not used to interpr et this result as aranza l/abnormal. [facility] [id number] 02:18:00 Test Item Value Reference Range Interpretation Comments UA Bili (test code = Negative *NA*(11/28/16 UA Bili) 9:18 PM) [facility] [id number] 02:18:00 Test Item Value Reference Range Interpretation Comments UA Bacteria (test code = UA Occasional /HPF Bacteria) [facility] [id number] 02:18:00 Test Item Value Reference Range Interpretation Comments UA Sq Epi (test code = UA Sq Occasional /LPF Epi) [facility] [id number] 02:18:00 Test Item Value Reference Range Interpretation Comments UA Leuk Est (test Moderate *ABN*(11/28/16 code = UA Leuk Est) 9:18 PM) [facility] AND [id number] 02:18:00 Test Item Value Reference Range Interpretation Comments UA Color (test code = Yellow *NA*(11/28/16 9:18 UA Color) PM) [facility] AND [id number] 02:18:00 Test Item Value Reference Range Interpretation Comments UA pH (test code = UA pH) 6.0 1 5.0-8.0 [facility] AND [id number] 02:18:00 Test Item Value Reference Range Interpretation Comments UA Protein (test code Negative (11/28/16 9:18 = UA Protein) PM) [facility] AND [id number] 02:18:00 Test Item Value Reference Range Interpretation Comments UA Glucose (test code Negative (11/28/16 9:18 = UA Glucose) PM) [facility] [id number] 02:18:00 Test Item Value Reference Range Interpretation Comments UA Spec Grav (test code *NA*(11/28/16 9:18 PM) = UA Spec Grav) [facility] [id number] 02:18:00 Test Item Value Reference Range Interpretation Comments UA Turbidity (test code = Clear (11/28/16 9:18 UA Turbidity) PM) [facility] [id number] 01:37:00 Test Item Value Reference Range Interpretation Comments Troponin-I (test code no gt See_Comment [Auto mated message] The = Troponin-I) system which g enerated this result transmit marcelle reference range : <=0.40. The reference r melody was not used to interpr et this result as aranza l/abnormal. [facility] [id number] 01:37:00 Test Item Value Reference Range Interpretation Comments CK MB (test code = CK MB) 1.3 0.5-3.[address] [facility] [employer] [id number] 01:37:00 Test Item Value Reference Range Interpretation Comments Total CK (test code = Total CK) 89 12-[address] [facility] [employer] [id number] 01:37:00 Test Item Value Reference Range Interpretation Comments CK-MB INDEX (test 1.5 See_Comment [Automate d message] The code = CK-MB INDEX) system w [facility] generated this result transmit marcelle reference range : <=2.5. The reference range was not used to interpr et this result as aranza l/abnormal. [facility] Motility Count2017-04-03 01:37:00 Test Item Value Reference Range Interpretation Comments Globulin (test code = Globulin) 3.9 2.7-4.[address] [facility] Motility Count2017-04-03 01:37:00 Test Item Value Reference Range Interpretation Comments eGFR (test code = eGFR) [address] [facility] [employer] [id number] 01:37:00 Test Item Value Reference Range Interpretation Comments A/G Ratio (test code = A/G Ratio) 0.9 0.7-1.[address] [facility] Motility Count2017-04-03 01:37:00 Test Item Value Reference Range Interpretation Comments ALANINE AMINOTRANSFERASE 24 See_Comment [A utomated message] (test code = ALANINE The sys tem which AMINOTRANSFERASE) generated this result transmitted ref erence range: <=65. Th e reference range was not used to int erpret this result as normal/abnormal . [employer]2017-04-03 01:37:00 Test Item Value Reference Range Interpretation Comments Albumin Lvl (test code = Albumin Lvl) 3.7 3.5-5.[address] [facility] Motility Count2017-04-03 01:37:00 Test Item Value Reference Range Interpretation Comments Alk Phos (test code = Alk Phos) 89 39-136 [facility]2017-04-03 01:37:00 Test Item Value Reference Range Interpretation Comments Glucose Lvl (test code = Glucose Lvl) 112 70-99 [facility]2017-04-03 01:37:00 Test Item Value Reference Range Interpretation Comments BUN (test code = BUN) 10 7-22 [facility]2017-04-03 01:37:00 Test Item Value Reference Range Interpretation Comments Creatinine Lvl (test code = Creatinine 1.28 0.50-1.40 Lvl) [facility]2017-04-03 01:37:00 Test Item Value Reference Range Interpretation Comments CO2 (test code = CO2) 30 24-32 [facility]2017-04-03 01:37:00 Test Item Value Reference Range Interpretation Comments Chloride Lvl (test code = Chloride Lvl) 103 95-109 [facility]2017-04-03 01:37:00 Test Item Value Reference Range Interpretation Comments Calcium Lvl (test code = Calcium Lvl) 9.5 8.5-10.5 [facility]2017-04-03 01:37:00 Test Item Value Reference Range Interpretation Comments AGAP (test code = AGAP) 9.5 10.0-20.0 [facility]2017-04-03 01:37:00 Test Item Value Reference Range Interpretation Comments B/C Ratio (test code = B/C Ratio) 8 6-25 [facility]2017-04-03 01:37:00 Test Item Value Reference Range Interpretation Comments Bili Total (test code = Bili Total) 0.7 0.2-1.3 [facility]2017-04-03 01:37:00 Test Item Value Reference Range Interpretation Comments Sodium Lvl (test code = Sodium Lvl) 139 135-145 [facility]2017-04-03 01:37:00 Test Item Value Reference Range Interpretation Comments Potassium Lvl (test code = Potassium 3.5 3.5-5.1 Lvl) [facility]2017-04-03 01:37:00 Test Item Value Reference Range Interpretation Comments Total Protein (test code = Total 7.6 6.4-8.4 Protein) [facility]2017-04-03 01:37:00 Test Item Value Reference Range Interpretation Comments ASPARTATE TRANSAMINASE 14 See_Comment [Aut omated message] (test code = ASPARTATE The s ystem which TRANSAMINASE) generated this result transmitted ref erence range: <=37. Th e reference range was not used to interpr et this result as normal/abnormal . [facility] AliceNqlgngzYWSXIIWDER7032-71-88 01:10:00 Test Item Value Reference Range Interpretation Comments MCHC (test code = MCHC) 33.4 32.0-36.0 [facility] AliceOkzhcafNYLBFVBFNS2592-13-42 01:10:00 Test Item Value Reference Range Interpretation Comments Platelet (test code = Platelet) 261 133-450 [facility] AliceOtywsjuKLIMZUNJMK4409-70-38 01:10:00 Test Item Value Reference Range Interpretation Comments RDW (test code = RDW) 14.7 11.5-14.5 [facility] AliceLvqcsbnXMIIGKKTDA5694-67-71 01:10:00 Test Item Value Reference Range Interpretation Comments MPV (test code = MPV) 8.1 7.4-10.4 [facility] AliceNwnnlclIYBMHYTYLI4236-23-41 01:10:00 Test Item Value Reference Range Interpretation Comments RBC X 10x6 (test code = RBC X 10x6) 5.34 4.20-5.40 [facility] AliceUwbmgzsGQBSQQEWBW0106-24-73 01:10:00 Test Item Value Reference Range Interpretation Comments Hgb (test code = Hgb) 15.5 12.0-16.0 [facility] AliceOjnaycpULMZNACBRL8590-39-85 01:10:00 Test Item Value Reference Range Interpretation Comments MCV (test code = MCV) 87.0 80.0-98.0 [facility] AliceBncgllqHLQNVHCCYZ7156-18-37 01:10:00 Test Item Value Reference Range Interpretation Comments Hct (test code = Hct) 46.4 36.0-48.0 [facility] AliceBrepyvmLAEWEWWNZT9772-71-95 01:10:00 Test Item Value Reference Range Interpretation Comments MCH (test code = MCH) 29.1 pg 27.0-31.0 [facility] AliceGxougveMWMRDDOXXH2082-07-56 01:10:00 Test Item Value Reference Range Interpretation Comments WBC X 10x3 (test code = WBC X 10x3) 8.0 3.7-10.4 [place] [id number] 01:10:00 Test Item Value Reference Range Interpretation Comments Basophils # (test code 0.1 See_Comment [Aut omated message] The = Basophils #) system which generated this result tra nsmitted reference range : <=0.2. The reference r melody was not used to int erpret this result as normal/abnormal . [facility] AliceFftxgykSKVBIZVKZE7789-09-14 01:10:00 Test Item Value Reference Range Interpretation Comments Lymphocytes # (test code = Lymphocytes 2.0 1.0-5.5 #) [facility] AliceZquyvlrGBQKBMIODS2986-51-71 01:10:00 Test Item Value Reference Range Interpretation Comments Segs-Bands # (test code = Segs-Bands #) 5.1 1.5-8.1 [facility] AliceCqvtpsrPCQEYNEPJI3350-90-23 01:10:00 Test Item Value Reference Range Interpretation Comments Eosinophils # (test code 0.2 See_Comment [A utomated message] The = Eosinophils #) system whic h generated this result tra nsmitted reference range : <=0.5. The reference r melody was not used to int erpret this result as normal/abnormal . [facility] AliceGkmbelhIVFRABKKUT6096-89-22 01:10:00 Test Item Value Reference Range Interpretation Comments Monocytes # (test code 0.8 See_Comment [Aut omated message] The = Monocytes #) system which generated this result tra nsmitted reference range : <=0.8. The reference r melody was not used to int erpret this result as normal/abnormal . [facility] AliceDvowjciWIZIAOBAUS5273-52-60 01:10:00 Test Item Value Reference Range Interpretation Comments Segs (test code = Segs) 63.2 45.0-75.0 [facility] AliceNjewjjgFSRBLHQDBV3470-96-30 01:10:00 Test Item Value Reference Range Interpretation Comments Lymphocytes (test code = Lymphocytes) 24.3 20.0-40.0 [facility] AlicePbceqvwFDRGWXGXWX4487-61-71 01:10:00 Test Item Value Reference Range Interpretation Comments Eosinophils (test code = 2.1 See_Comment [A utomated message] The Eosinophils) system which ge nerated this result tra nsmitted reference range : <=4.0. The reference r melody was not used to int erpret this result as normal/abnormal . [facility] AliceHezwrpfGZFMKIOXUC1493-83-98 01:10:00 Test Item Value Reference Range Interpretation Comments Monocytes (test code = Monocytes) 9.6 2.0-12.0 [facility]KHJZITYUQN4931-[facility]-12 01:10:00 Test Item Value Reference Range Interpretation Comments Basophils (test code = 0.8 See_Comment [Aut omated message] The Basophils) system which ge nerated this result tra nsmitted reference range : <=1.0. The reference r melody was not used to int erpret this result as normal/abnormal . [facility] - [id number] 01:10:00 Test Item Value Reference Range Interpretation Comments Influ B (test code = Negative (11/28/16 8:10 Influ B) PM) [facility] [id number] 01:10:00 Test Item Value Reference Range Interpretation Comments Influ A (test code = Negative (11/28/16 8:10 Influ A) PM) [facility] CleburneCHF TechnologiesCARVacatiaAC CWPPKJK0900-01-34 01:15:00 Test Item Value Reference Range Interpretation Comments CK-MB INDEX (test 1.3 See_Comment [Automate d message] The code = CK-MB INDEX) system w [facility] generated this result transmit marcelle reference range : <=2.5. The reference range was not used to interpr et this result as aranza l/abnormal. [facility]neAtomic Moguls [id number] 01:15:00 Test Item Value Reference Range Interpretation Comments Troponin-I (test code no gt See_Comment [Auto mated message] The = Troponin-I) system which g enerated this result transmit marcelle reference range : <=0.40. The reference r melody was not used to interpr et this result as aranza l/abnormal. [facility] CleburneCHF TechnologiesCARVacatiaAC ONEJEXE2793-25-08 01:15:00 Test Item Value Reference Range Interpretation Comments CK MB (test code = CK MB) 1.9 0.5-3.6 [facility]neannCARVacatiaAC [id number] 01:15:00 Test Item Value Reference Range Interpretation Comments Total CK (test code = Total CK) 144 12-[address] [facility] [employer] [id number] 01:15:00 Test Item Value Reference Range Interpretation Comments eGFR (test code = eGFR) 77 [facility]2017-03-12 01:15:00 Test Item Value Reference Range Interpretation Comments ASPARTATE TRANSAMINASE 17 See_Comment [Aut omated message] (test code = ASPARTATE The s ystem which TRANSAMINASE) generated this result transmitted ref erence range: <=37. Th e reference range was not used to interpr et this result as normal/abnormal . [facility]2017-03-12 01:15:00 Test Item Value Reference Range Interpretation Comments Total Protein (test code = Total 6.8 6.4-8.4 Protein) [facility]2017-03-12 01:15:00 Test Item Value Reference Range Interpretation Comments Calcium Lvl (test code = Calcium Lvl) 8.5 8.5-10.5 [facility]2017-03-12 01:15:00 Test Item Value Reference Range Interpretation Comments Bili Total (test code = Bili Total) 0.8 0.2-1.3 [facility]2017-03-12 01:15:00 Test Item Value Reference Range Interpretation Comments Chloride Lvl (test code = Chloride Lvl) 106 95-109 [facility]2017-03-12 01:15:00 Test Item Value Reference Range Interpretation Comments CO2 (test code = CO2) 31 24-32 [facility]2017-03-12 01:15:00 Test Item Value Reference Range Interpretation Comments Potassium Lvl (test code = Potassium 3.1 3.5-5.1 Lvl) [facility]2017-03-12 01:15:00 Test Item Value Reference Range Interpretation Comments Creatinine Lvl (test code = Creatinine 0.90 0.50-1.40 Lvl) [facility]2017-03-12 01:15:00 Test Item Value Reference Range Interpretation Comments Sodium Lvl (test code = Sodium Lvl) 144 135-145 [facility]2017-03-12 01:15:00 Test Item Value Reference Range Interpretation Comments BUN (test code = BUN) 12 7-22 [facility]2017-03-12 01:15:00 Test Item Value Reference Range Interpretation Comments Glucose Lvl (test code = Glucose Lvl) 96 70-99 [facility]2017-03-12 01:15:00 Test Item Value Reference Range Interpretation Comments Albumin Lvl (test code = Albumin Lvl) 3.3 3.5-5.0 [facility]2017-03-12 01:15:00 Test Item Value Reference Range Interpretation Comments Alk Phos (test code = Alk Phos) 76 39-136 [facility]2017-03-12 01:15:00 Test Item Value Reference Range Interpretation Comments ALANINE AMINOTRANSFERASE 20 See_Comment [A utomated message] (test code = ALANINE The sys tem which AMINOTRANSFERASE) generated this result transmitted ref erence range: <=65. Th e reference range was not used to int erpret this result as normal/abnormal . [facility]2017-03-12 01:15:00 Test Item Value Reference Range Interpretation Comments Globulin (test code = Globulin) 3.5 2.7-4.2 [facility]2017-03-12 01:15:00 Test Item Value Reference Range Interpretation Comments A/G Ratio (test code = A/G Ratio) 0.9 0.7-1.6 [place] [id number] 01:15:00 Test Item Value Reference Range Interpretation Comments AGAP (test code = AGAP) 10.1 10.0-20.0 [facility]2017-03-12 01:15:00 Test Item Value Reference Range Interpretation Comments B/C Ratio (test code = B/C Ratio) 13 6-25 [facility] AliceIkzmdhhAMJULDGDNV2556-54-71 01:15:00 Test Item Value Reference Range Interpretation Comments Eosinophils (test code = 2.8 See_Comment [A utomated message] The Eosinophils) system which ge nerated this result tra nsmitted reference range : <=4.0. The reference r melody was not used to int erpret this result as normal/abnormal . [facility] AliceDobpeesYCSINZSDID7523-71-27 01:15:00 Test Item Value Reference Range Interpretation Comments Eosinophils # (test code 0.2 See_Comment [A utomated message] The = Eosinophils #) system whic h generated this result tra nsmitted reference range : <=0.5. The reference r melody was not used to int erpret this result as normal/abnormal . [facility] AliceCsdxhuwHEOFTCLIGQ5750-89-63 01:15:00 Test Item Value Reference Range Interpretation Comments Basophils # (test code 0.1 See_Comment [Aut omated message] The = Basophils #) system which generated this result tra nsmitted reference range : <=0.2. The reference r melody was not used to int erpret this result as normal/abnormal . [facility] AliceEbtzfznIDOZIWMZFH3416-35-62 01:15:00 Test Item Value Reference Range Interpretation Comments Monocytes # (test code 0.7 See_Comment [Aut omated message] The = Monocytes #) system which generated this result tra nsmitted reference range : <=0.8. The reference r melody was not used to int erpret this result as normal/abnormal . [facility] AliceIurwtiwJHFVJAGUCP5667-79-92 01:15:00 Test Item Value Reference Range Interpretation Comments Basophils (test code = 0.8 See_Comment [Aut omated message] The Basophils) system which ge nerated this result tra nsmitted reference range : <=1.0. The reference r melody was not used to int erpret this result as normal/abnormal . [facility] AliceMmnmhgoKMFTXKHZBJ4726-64-73 01:15:00 Test Item Value Reference Range Interpretation Comments Segs-Bands # (test code = Segs-Bands #) 4.5 1.5-8.1 [facility] AliceXekrotdZODXUCDYEB1858-55-17 01:15:00 Test Item Value Reference Range Interpretation Comments Lymphocytes # (test code = Lymphocytes 2.2 1.0-5.5 #) [facility] AliceYyuzewoGHZDYJWLIX4918-30-11 01:15:00 Test Item Value Reference Range Interpretation Comments Segs (test code = Segs) 58.5 45.0-75.0 [facility] AliceZyqvvfbYBAIUYMGUX8867-01-71 01:15:00 Test Item Value Reference Range Interpretation Comments Lymphocytes (test code = Lymphocytes) 28.8 20.0-40.0 [facility] AlicePagnozmYSRTWWUAFT3125-51-38 01:15:00 Test Item Value Reference Range Interpretation Comments Monocytes (test code = Monocytes) 9.1 2.0-12.0 [facility] AliceVckvnlpXQZTGZOINZ0532-14-95 01:15:00 Test Item Value Reference Range Interpretation Comments Platelet (test code = Platelet) 196 133-450 [facility] AliceYugwwdaZVEIHQHLWO5915-69-16 01:15:00 Test Item Value Reference Range Interpretation Comments RDW (test code = RDW) 14.3 11.5-14.5 [facility] AliceNfblsmnEWSWJUVVPO9104-89-87 01:15:00 Test Item Value Reference Range Interpretation Comments MPV (test code = MPV) 8.1 7.4-10.4 [facility] AliceQkpnmtePOUYNEOQZZ1470-69-90 01:15:00 Test Item Value Reference Range Interpretation Comments WBC X 10x3 (test code = WBC X 10x3) 7.7 3.7-10.4 [facility] AlicePmhpoanBAKERSRTBT7812-63-75 01:15:00 Test Item Value Reference Range Interpretation Comments Hgb (test code = Hgb) 13.1 12.0-16.0 [facility] AliceFkwfofjSKODONFRRS7664-48-56 01:15:00 Test Item Value Reference Range Interpretation Comments RBC X 10x6 (test code = RBC X 10x6) 4.48 4.20-5.40 [facility] AliceLjldvcjSEHYBYVEMB3876-89-10 01:15:00 Test Item Value Reference Range Interpretation Comments MCH (test code = MCH) 29.3 pg 27.0-31.0 [facility] AliceXcttifxCHKIOTBQYW8737-08-01 01:15:00 Test Item Value Reference Range Interpretation Comments Hct (test code = Hct) 39.1 36.0-48.0 [facility] AliceUvsxblgBWZDVJKHGB5143-88-68 01:15:00 Test Item Value Reference Range Interpretation Comments MCV (test code = MCV) 87.3 80.0-98.0 [facility] AliceQbzxrmfPSEMYBPQWT1653-72-56 01:15:00 Test Item Value Reference Range Interpretation Comments MCHC (test code = MCHC) 33.6 32.0-36.0 [facility] [id number] 11:24:00 Test Item Value Reference Range Interpretation Comments U Benzodia Scr (test Negative *NA*(10/11/16 code = U Benzodia Scr) 5:24 AM) [facility]DR[facility] [id number] 11:24:00 Test Item Value Reference Range Interpretation Comments U Keyla Scr (test code Negative *NA*(10/11/16 = U Keyla Scr) 5:24 AM) [facility]DR[facility] IEWQYE0923-70-51 11:24:00 Test Item Value Reference Range Interpretation Comments U Amph Scr (test code Negative *NA*(10/11/16 = U Amph Scr) 5:24 AM) [facility] LQPFOT4169-91-92 11:24:00 Test Item Value Reference Range Interpretation Comments U Cannab Scr (test Negative *NA*(10/11/16 code = U Cannab Scr) 5:24 AM) [facility] KSKETN0515-08-60 11:24:00 Test Item Value Reference Range Interpretation Comments U Cocaine Scr (test Positive *ABN*(10/11/16 code = U Cocaine Scr) 5:24 AM) [facility] EKQTEI1194-06-81 11:24:00 Test Item Value Reference Range Interpretation Comments UDS Note (test code = See Note (10/11/16 5:24 UDS Note) AM) [facility] [id number] 11:24:00 Test Item Value Reference Range Interpretation Comments U Opiate Scr (test Negative *NA*(10/11/16 code = U Opiate Scr) 5:24 AM) [facility] [id number] 11:24:00 Test Item Value Reference Range Interpretation Comments U Phencyc Scr (test Negative *NA*(10/11/16 code = U Phencyc Scr) 5:24 AM) [facility] QFBGWWB1192-70-17 09:58:00 Test Item Value Reference Range Interpretation Comments Troponin-I (test code no gt See_Comment [Auto mated message] The = Troponin-I) system which g enerated this result transmit marcelle reference range : <=0.40. The reference r melody was not used to interpr et this result as aranza l/abnormal. [facility]LzwqfvwYSEWCLPCHH9217-14-33 09:58:00 Test Item Value Reference Range Interpretation Comments Eosinophils # (test code 0.4 See_Comment [A utomated message] The = Eosinophils #) system whic h generated this result tra nsmitted reference range : <=0.5. The reference r melody was not used to int erpret this result as normal/abnormal . [facility]burneUlrvgbaFIJSEDFZFJ0336-52-44 09:58:00 Test Item Value Reference Range Interpretation Comments Basophils # (test code 0.1 See_Comment [Aut omated message] The = Basophils #) system which generated this result tra nsmitted reference range : <=0.2. The reference r melody was not used to int erpret this result as normal/abnormal . [facility]XmkxbmwPKJABUQWCJ4367-05-11 09:58:00 Test Item Value Reference Range Interpretation Comments Eosinophils (test code = 6.3 See_Comment [A utomated message] The Eosinophils) system which ge nerated this result tra nsmitted reference range : <=4.0. The reference r melody was not used to int erpret this result as normal/abnormal . [facility] AliceLdubhtfFCCBRSVCKN9977-22-90 09:58:00 Test Item Value Reference Range Interpretation Comments Basophils (test code = 1.0 See_Comment [Aut omated message] The Basophils) system which ge nerated this result tra nsmitted reference range : <=1.0. The reference r melody was not used to int erpret this result as normal/abnormal . [facility] AliceEhfbwtiJMGAOFOFJH4097-43-15 09:58:00 Test Item Value Reference Range Interpretation Comments Segs-Bands # (test code = Segs-Bands #) 2.7 1.5-8.1 [facility] AliceXpgyeasAJHWWWKOKJ4576-53-69 09:58:00 Test Item Value Reference Range Interpretation Comments Lymphocytes # (test code = Lymphocytes 2.1 1.0-5.5 #) [facility] AliceZleabnqGTGIDSPYTN8013-93-46 09:58:00 Test Item Value Reference Range Interpretation Comments Monocytes # (test code 0.6 See_Comment [Aut omated message] The = Monocytes #) system which generated this result tra nsmitted reference range : <=0.8. The reference r melody was not used to int erpret this result as normal/abnormal . [facility] AliceVlxtlcaMCZZBBYQJF9919-82-58 09:58:00 Test Item Value Reference Range Interpretation Comments Lymphocytes (test code = Lymphocytes) 36.3 20.0-40.0 [facility]OuhtdoyQZLKAEUEVJ8787-61-82 09:58:00 Test Item Value Reference Range Interpretation Comments Segs (test code = Segs) 46.0 45.0-75.0 [facility] AliceHoswfmaODJWVUIKGO0888-42-50 09:58:00 Test Item Value Reference Range Interpretation Comments Monocytes (test code = Monocytes) 10.4 2.0-12.0 [facility] AliceMxuwwklEDDGPGOEQF5902-42-24 09:58:00 Test Item Value Reference Range Interpretation Comments MPV (test code = MPV) 8.7 7.4-10.4 [facility] AliceLdzdobaZJNYVELMAO6668-12-71 09:58:00 Test Item Value Reference Range Interpretation Comments Platelet (test code = Platelet) 194 133-450 [facility] AliceBpaxxdsLNGPFWCJRG5772-72-24 09:58:00 Test Item Value Reference Range Interpretation Comments MCH (test code = MCH) 29.3 pg 27.0-31.0 [facility] AliceDqngkhpUZZHBTXRZU7172-76-58 09:58:00 Test Item Value Reference Range Interpretation Comments MCV (test code = MCV) 87.2 80.0-98.0 [facility] AliceKanzclcHNGUBGHJPM1377-55-49 09:58:00 Test Item Value Reference Range Interpretation Comments RDW (test code = RDW) 14.4 11.5-14.5 [facility] AliceSravsxdGTJRRPUWVE7500-69-43 09:58:00 Test Item Value Reference Range Interpretation Comments MCHC (test code = MCHC) 33.6 32.0-36.0 [facility] AliceVvmhruxBBFSIMDOXB1234-68-82 09:58:00 Test Item Value Reference Range Interpretation Comments Hgb (test code = Hgb) 13.1 12.0-16.0 [facility] AliceIsklmhtRWUXDURKYK7441-36-95 09:58:00 Test Item Value Reference Range Interpretation Comments RBC (test code = RBC) 4.45 4.20-5.40 [facility] AliceSmxzuueRZGZHXXKMU9639-02-11 09:58:00 Test Item Value Reference Range Interpretation Comments Hct (test code = Hct) 38.8 36.0-48.0 [facility] AliceLqjnelmIJBXNFDNJI4532-71-19 09:58:00 Test Item Value Reference Range Interpretation Comments WBC (test code = WBC) 5.8 3.7-10.4 [facility]wayAoruznyJFPYDP7628-06-60 09:58:00 Test Item Value Reference Range Interpretation Comments CHD Risk (test code = CHD Risk) 2.84 3.90-5.80 [facility] LakewayOhgygdtQBQHCN8358-98-01 09:58:00 Test Item Value Reference Range Interpretation Comments VLDL (test code = VLDL) 14 [facility] LakewayLogonvkTHEHFH3479-87-17 09:58:00 Test Item Value Reference Range Interpretation Comments LDL (Calculated) (test code = LDL 87 (Calculated)) [facility] LakewayVoxfdkmQWPRJZ8539-18-44 09:58:00 Test Item Value Reference Range Interpretation Comments Trig (test code = Trig) 71 [facility] LakewayFhgutpmTGQFBL8168-22-00 09:58:00 Test Item Value Reference Range Interpretation Comments Chol (test code = Chol) 156 [facility]neGifuoaoXZOFXF6881-60-24 09:58:00 Test Item Value Reference Range Interpretation Comments HDL (test code = HDL) 55 [facility] PCJZDWW3237-16-44 00:00:00 Test Item Value Reference Range Interpretation Comments Troponin-I (test code no gt See_Comment [Auto mated message] The = Troponin-I) system which g enerated this result transmit marcelle reference range : <=0.40. The reference r melody was not used to interpr et this result as aranza l/abnormal. [facility] DQGPNJN9492-11-18 19:10:33 Test Item Value Reference Range Interpretation Comments Troponin-I (test code no gt See_Comment [Auto mated message] The = Troponin-I) system which g enerated this result transmit marcelle reference range : <=0.40. The reference r melody was not used to interpr et this result as aranza l/abnormal. [facility] VRRIV7979-69-63 19:10:33 Test Item Value Reference Range Interpretation Comments eGFR (test code = eGFR) 92 [facility]2017-02-12 19:10:33 Test Item Value Reference Range Interpretation Comments BUN (test code = BUN) 8 7-22 [facility] TLDXD8265-51-63 19:10:33 Test Item Value Reference Range Interpretation Comments Creatinine Lvl (test code = Creatinine 0.78 0.50-1.40 Lvl) [facility]2017-02-12 19:10:33 Test Item Value Reference Range Interpretation Comments Glucose Lvl (test code = Glucose Lvl) 108 70-99 [facility]2017-02-12 19:10:33 Test Item Value Reference Range Interpretation Comments Potassium Lvl (test code = Potassium 3.2 3.5-5.1 Lvl) [facility]2017-02-12 19:10:33 Test Item Value Reference Range Interpretation Comments Calcium Lvl (test code = Calcium Lvl) 9.3 8.5-10.5 [facility] ZVJKQ3903-98-57 19:10:33 Test Item Value Reference Range Interpretation Comments CO2 (test code = CO2) 31 24-32 [facility]2017-02-12 19:10:33 Test Item Value Reference Range Interpretation Comments Sodium Lvl (test code = Sodium Lvl) 143 135-145 [facility]2017-02-12 19:10:33 Test Item Value Reference Range Interpretation Comments Chloride Lvl (test code = Chloride Lvl) 108 95-109 [facility]2017-02-12 19:10:33 Test Item Value Reference Range Interpretation Comments AGAP (test code = AGAP) 7.2 10.0-20.0 [facility] AliceDbzzzcyUIGALSJMGV6842-05-09 19:10:33 Test Item Value Reference Range Interpretation Comments MCHC (test code = MCHC) 33.8 32.0-36.0 [facility] AliceTyrvhuxHXCPKSOHZB1155-38-85 19:10:33 Test Item Value Reference Range Interpretation Comments RDW (test code = RDW) 14.2 11.5-14.5 [facility] AlicePlfozvyILHJGFASQE4105-47-58 19:10:33 Test Item Value Reference Range Interpretation Comments MCH (test code = MCH) 29.4 pg 27.0-31.0 [facility] AliceQoldvnyOWIOOQRLGU0751-79-50 19:10:33 Test Item Value Reference Range Interpretation Comments MCV (test code = MCV) 87.0 80.0-98.0 [facility] AliceMfnksocZCJMQGOYMF3205-69-47 19:10:33 Test Item Value Reference Range Interpretation Comments Hgb (test code = Hgb) 13.5 12.0-16.0 [facility] AliceJoyniweEBAARPMFIY6187-79-36 19:10:33 Test Item Value Reference Range Interpretation Comments Hct (test code = Hct) 39.8 36.0-48.0 [facility] AliceWtutcurFWDPDTJNGI8069-24-71 19:10:33 Test Item Value Reference Range Interpretation Comments Platelet (test code = Platelet) 208 133-450 [facility] AliceIulorarHSLMZDMPJZ1246-20-92 19:10:33 Test Item Value Reference Range Interpretation Comments MPV (test code = MPV) 8.7 7.4-10.4 [facility] AliceCmjspxpHPZVDTVJMO8339-59-00 19:10:33 Test Item Value Reference Range Interpretation Comments WBC (test code = WBC) 6.6 3.7-10.4 [facility] AliceWfrvtzvYMZLQXBQHP1086-09-57 19:10:33 Test Item Value Reference Range Interpretation Comments RBC (test code = RBC) 4.58 4.20-5.40 [facility] AliceXjhktfqQSFLAIAFBQ0932-33-03 19:10:33 Test Item Value Reference Range Interpretation Comments Lymphocytes # (test code = Lymphocytes 1.8 1.0-5.5 #) [facility] AliceKsvovlnMXPCRXRVBV3162-02-85 19:10:33 Test Item Value Reference Range Interpretation Comments Monocytes # (test code 0.6 See_Comment [Aut omated message] The = Monocytes #) system which generated this result tra nsmitted reference range : <=0.8. The reference r melody was not used to int erpret this result as normal/abnormal . [facility] AliceQruscjxOAQCVRJRNM4362-86-22 19:10:33 Test Item Value Reference Range Interpretation Comments Eosinophils # (test code 0.3 See_Comment [A utomated message] The = Eosinophils #) system whic h generated this result tra nsmitted reference range : <=0.5. The reference r melody was not used to int erpret this result as normal/abnormal . [facility] AliceEigwxnmYMJBVHGTGW9778-23-99 19:10:33 Test Item Value Reference Range Interpretation Comments Basophils (test code = 0.6 See_Comment [Aut omated message] The Basophils) system which ge nerated this result tra nsmitted reference range : <=1.0. The reference r melody was not used to int erpret this result as normal/abnormal . [facility] AliceFwbrvreLJSOPZIYPS2324-27-69 19:10:33 Test Item Value Reference Range Interpretation Comments Segs-Bands # (test code = Segs-Bands #) 3.9 1.5-8.1 [facility] AliceLhtrpbdDBBHVBGLCI2896-71-69 19:10:33 Test Item Value Reference Range Interpretation Comments Monocytes (test code = Monocytes) 9.0 2.0-12.0 [facility] AliceIzfisheQZXTJKYIXE7627-88-73 19:10:33 Test Item Value Reference Range Interpretation Comments Eosinophils (test code = 4.1 See_Comment [A utomated message] The Eosinophils) system which ge nerated this result tra nsmitted reference range : <=4.0. The reference r melody was not used to int erpret this result as normal/abnormal . [facility] AliceWecdcjiTEMAWOBZZH6835-02-34 19:10:33 Test Item Value Reference Range Interpretation Comments Segs (test code = Segs) 59.5 45.0-75.0 [facility]JkvusheHLPZXNQLWB8756-43-03 19:10:33 Test Item Value Reference Range Interpretation Comments Lymphocytes (test code = Lymphocytes) 26.8 20.0-40.0 [facility] RDSQCJA6414-51-48 04:07:00 Test Item Value Reference Range Interpretation Comments Troponin-I (test code no gt See_Comment [Auto mated message] The = Troponin-I) system which g enerated this result transmit marcelle reference range : <=0.40. The reference r melody was not used to interpr et this result as aranza l/abnormal. [facility]bvawueQFHKGVWGYOLI9954-74-57 04:07:00 Test Item Value Reference Range Interpretation Comments AGAP (test code = AGAP) 13.5 10.0-20.0 [facility] HospitalOmfuwidWLWCZEJGFKYP2068-84-55 04:07:00 Test Item Value Reference Range Interpretation Comments eGFR (test code = eGFR) 79 [facility] HospitalJtjxhqqRTOATNPMFOXC8741-02-20 04:07:00 Test Item Value Reference Range Interpretation Comments Creatinine Lvl (test code = Creatinine 0.89 0.50-1.40 Lvl) [facility]PmqwwzgHXCYSOPDTTIM0909-13-12 04:07:00 Test Item Value Reference Range Interpretation Comments BUN (test code = BUN) 9 7-22 [facility] HospitalYvjuejqFZYEQLJXJJIO4719-95-95 04:07:00 Test Item Value Reference Range Interpretation Comments Glucose Lvl (test code = Glucose Lvl) 72 70-99 [facility] HospitalYbaibojBBPPLCMYUNNB4679-94-08 04:07:00 Test Item Value Reference Range Interpretation Comments Chloride Lvl (test code = Chloride Lvl) 107 95-109 [facility] HospitalTziwgqmEXAUGIXORQHL3157-09-60 04:07:00 Test Item Value Reference Range Interpretation Comments CO2 (test code = CO2) 25 24-32 [facility] HospitalUrgbhqvQSAAFDRGEQDE6642-34-08 04:07:00 Test Item Value Reference Range Interpretation Comments Calcium Lvl (test code = Calcium Lvl) 8.9 8.5-10.5 [facility] HospitalIqloursURZRHPIGXXQX2624-67-99 04:07:00 Test Item Value Reference Range Interpretation Comments Sodium Lvl (test code = Sodium Lvl) 142 135-145 [facility] HospitalLgjsslvUNSLCZWFALVL5724-14-33 04:07:00 Test Item Value Reference Range Interpretation Comments Potassium Lvl (test code = Potassium 3.5 3.5-5.1 Lvl) [facility] AliceSsenholCYOATZEEWJ6256-61-99 04:07:00 Test Item Value Reference Range Interpretation Comments Platelet (test code = Platelet) 181 133-450 [facility] AliceJxqmbvfSKQDIEAFHN7221-08-24 04:07:00 Test Item Value Reference Range Interpretation Comments MPV (test code = MPV) 8.5 7.4-10.4 [facility] AliceIavejbgXYQZHMCWRY7067-77-46 04:07:00 Test Item Value Reference Range Interpretation Comments MCHC (test code = MCHC) 33.5 32.0-36.0 [facility] AliceJdwyodfMTWLZYGRPW1770-17-05 04:07:00 Test Item Value Reference Range Interpretation Comments MCH (test code = MCH) 28.7 pg 27.0-31.0 [facility] AliceJxnqvrmPARUYTPBYC9955-01-25 04:07:00 Test Item Value Reference Range Interpretation Comments RDW (test code = RDW) 15.0 11.5-14.5 [facility] AliceGtzghqtTVYTRSSGVJ3575-86-72 04:07:00 Test Item Value Reference Range Interpretation Comments Hct (test code = Hct) 38.3 36.0-48.0 [facility] AliceCgcntgzBTWVVULGXS2124-02-75 04:07:00 Test Item Value Reference Range Interpretation Comments MCV (test code = MCV) 85.6 80.0-98.0 [facility] AliceJacpephJILQGNFAYY2933-84-08 04:07:00 Test Item Value Reference Range Interpretation Comments Hgb (test code = Hgb) 12.9 12.0-16.0 [facility] AliceHtjpfndKSRSKTRACJ2849-01-78 04:07:00 Test Item Value Reference Range Interpretation Comments RBC (test code = RBC) 4.48 4.20-5.40 [facility] AliceEneeowvRXJNHGMOWX0136-20-27 04:07:00 Test Item Value Reference Range Interpretation Comments WBC (test code = WBC) 5.6 3.7-10.4 [facility] AliceGeaqnxmIMCDLFWCBI8957-05-66 04:07:00 Test Item Value Reference Range Interpretation Comments Basophils # (test code 0.1 See_Comment [Aut omated message] The = Basophils #) system which generated this result tra nsmitted reference range : <=0.2. The reference r melody was not used to int erpret this result as normal/abnormal . [facility] AliceSvdznfeANWZAZHDZN0189-04-40 04:07:00 Test Item Value Reference Range Interpretation Comments Lymphocytes # (test code = Lymphocytes 2.2 1.0-5.5 #) [facility] AliceOgetljeWJDRQSBYCF6118-22-78 04:07:00 Test Item Value Reference Range Interpretation Comments Eosinophils # (test code 0.3 See_Comment [A utomated message] The = Eosinophils #) system whic h generated this result tra nsmitted reference range : <=0.5. The reference r melody was not used to int erpret this result as normal/abnormal . [facility] AliceLrythqcAQEKLBSJRI8217-84-75 04:07:00 Test Item Value Reference Range Interpretation Comments Monocytes # (test code 0.5 See_Comment [Aut omated message] The = Monocytes #) system which generated this result tra nsmitted reference range : <=0.8. The reference r melody was not used to int erpret this result as normal/abnormal . [facility] AliceZyuaxzmRDBABZNKIY6890-71-96 04:07:00 Test Item Value Reference Range Interpretation Comments Eosinophils (test code = 6.1 See_Comment [A utomated message] The Eosinophils) system which ge nerated this result tra nsmitted reference range : <=4.0. The reference r melody was not used to int erpret this result as normal/abnormal . [facility] AliceIsbiwfxJWOQFKDQTG0517-21-37 04:07:00 Test Item Value Reference Range Interpretation Comments Basophils (test code = 1.1 See_Comment [Aut omated message] The Basophils) system which ge nerated this result tra nsmitted reference range : <=1.0. The reference r melody was not used to int erpret this result as normal/abnormal . [facility] AliceIgswqobSNEZKBUKBA5335-92-37 04:07:00 Test Item Value Reference Range Interpretation Comments Segs-Bands # (test code = Segs-Bands #) 2.5 1.5-8.1 [facility] AliceJgckdviWFEBEXPQWR5799-78-74 04:07:00 Test Item Value Reference Range Interpretation Comments Lymphocytes (test code = Lymphocytes) 38.8 20.0-40.0 [facility] AliceIhcycsdEAGHRYXAOJ8446-75-15 04:07:00 Test Item Value Reference Range Interpretation Comments Monocytes (test code = Monocytes) 9.2 2.0-12.0 [facility]LasuemcPRQKMRKTGE1610-77-58 04:07:00 Test Item Value Reference Range Interpretation Comments Segs (test code = Segs) 44.8 45.0-75.0 [facility]neyPxkvcydESQOQAESBC7856-87-46 04:07:00 Test Item Value Reference Range Interpretation Comments Ethanol Lvl (test code = Ethanol Lvl) 8 [facility] McKinneyFzkgapzGDZHEVBMKY3605-64-18 04:07:00 Test Item Value Reference Range Interpretation Comments Etoh (%) (test code = Etoh (%)) 0.008 [facility] CZDHTFM3745-80-37 11:47:00 Test Item Value Reference Range Interpretation Comments Troponin-I (test code no gt See_Comment [Auto mated message] The = Troponin-I) system which g enerated this result transmit marcelle reference range : <=0.40. The reference r melody was not used to interpr et this result as aranza l/abnormal. [facility]nePlkkhetNECTPS5201-43-58 11:47:00 Test Item Value Reference Range Interpretation Comments CHD Risk (test code = CHD Risk) 3.39 3.90-5.80 [facility] CleburneZmuptsdNSTAWG4200-68-70 11:47:00 Test Item Value Reference Range Interpretation Comments VLDL (test code = VLDL) 18 [facility]ZpnncfdTNHPYR7290-37-14 11:47:00 Test Item Value Reference Range Interpretation Comments LDL (Calculated) (test code = LDL 73 (Calculated)) [facility] Cle[facility]neFpsiqvzBFOZVQ3757-37-99 11:47:00 Test Item Value Reference Range Interpretation Comments Trig (test code = Trig) 90 [facility] Cle[facility]neSntefvqLVGCJQ9272-05-40 11:47:00 Test Item Value Reference Range Interpretation Comments Chol (test code = Chol) 129 [facility] CleburneXadjytmFTSSDA7966-21-96 11:47:00 Test Item Value Reference Range Interpretation Comments HDL (test code = HDL) [facility] LHPOPTINO7460-87-77 11:47:00 Test Item Value Reference Range Interpretation Comments Hgb A1C (test code = Hgb A1C) 5.9 [facility] ZTGEUSV3237-72-60 02:33:00 Test Item Value Reference Range Interpretation Comments Total CK (test code = Total CK) 81 12-191 [facility] SSGIDQX5882-70-53 02:33:00 Test Item Value Reference Range Interpretation Comments Troponin-I (test code 0.02 See_Comment [Auto mated message] The = Troponin-I) system which g enerated this result transmit marcelle reference range : <=0.40. The reference r melody was not used to interpr et this result as aranza l/abnormal. [facility] FKVERXU8157-17-92 02:33:00 Test Item Value Reference Range Interpretation Comments CK-MB INDEX (test 1.6 See_Comment [Automate d message] The code = CK-MB INDEX) system w [employer] generated this result transmit marcelle reference range : <=2.5. The reference range was not used to interpr et this result as aranza l/abnormal. [facility] KHKXONU1648-69-63 02:33:00 Test Item Value Reference Range Interpretation Comments CK MB (test code = CK MB) 1.3 0.5-3.6 [facility]WoxnfymFFIYVZDNGL6371-77-20 21:03:00 Test Item Value Reference Range Interpretation Comments PROTIME (test code = PROTIME) 14.0 s 12.0-14.7 [facility]BJQOQ[facility]QZ5551[facility]71[facility]49 21:03:00 Test Item Value Reference Range Interpretation Comments INR (test code = INR) 1.05 0.85-1.17 [facility]XyxfiwbGCMSFLUOQX1461-21-09 21:03:00 Test Item Value Reference Range Interpretation Comments aPTT (test code = aPTT) 38.7 s 22.9-35.8 [facility]KrtiunkZCQPLAHCKG2106-76-60 21:03:00 Test Item Value Reference Range Interpretation Comments D-Dimer (test code = D-Dimer) 0.49 [facility] OZIYWFY6988-00-32 20:14:00 Test Item Value Reference Range Interpretation Comments CK-MB INDEX (test 1.6 See_Comment [Automate d message] The code = CK-MB INDEX) system w [employer] generated this result transmit marcelle reference range : <=2.5. The reference range was not used to interpr et this result as aranza l/abnormal. [facility] DYPNRQN7413-94-50 20:14:00 Test Item Value Reference Range Interpretation Comments CK MB (test code = CK MB) 1.3 0.5-3.6 [facility]AC CLGADVP9953-38-95 20:14:00 Test Item Value Reference Range Interpretation Comments Troponin-I (test code no gt See_Comment [Auto mated message] The = Troponin-I) system which g enerated this result transmit marcelle reference range : <=0.40. The reference r melody was not used to interpr et this result as aranza l/abnormal. [facility] [employer]CARVac[facility]iaAC AGZFUSA8141-63-16 20:14:00 Test Item Value Reference Range Interpretation Comments Total CK (test code = Total CK) 83 12-191 [facility]CAR[facility]AC MQNJWHP2146-16-56 20:14:00 Test Item Value Reference Range Interpretation Comments proBNP (test code = 50 See_Comment [Automa marcelle message] The proBNP) system which ge nerated this result tra nsmitted reference range : <=125. The reference r melody was not used to int erpret this result as aranza l/abnormal. [employer] YRSUG7675-48-10 20:14:00 Test Item Value Reference Range Interpretation Comments Lipase Lvl (test code = Lipase Lvl) 196 73-[address] [facility] [employer] QTXFK1239-87-03 20:14:00 Test Item Value Reference Range Interpretation Comments eGFR (test code = eGFR) 110 [facility] [employer] BZNGD7694-85-45 20:14:00 Test Item Value Reference Range Interpretation Comments Globulin (test code = Globulin) 2.8 2.0-4.0 [employer] FGTDF7522-53-55 20:14:00 Test Item Value Reference Range Interpretation Comments A/G Ratio (test code = A/G Ratio) 1.2 0.7-1.6 [employer] KQVZE6049-67-06 20:14:00 Test Item Value Reference Range Interpretation Comments B/C Ratio (test code = B/C Ratio) 15 6-25 [employer] [id number] 20:14:00 Test Item Value Reference Range Interpretation Comments AGAP (test code = AGAP) 10.4 10.0-20.0 [employer] [id number] 20:14:00 Test Item Value Reference Range Interpretation Comments ASPARTATE TRANSAMINASE 14 See_Comment [Aut omated message] (test code = ASPARTATE The s ystem which TRANSAMINASE) generated this result transmitted ref erence range: <=37. Th e reference range was not used to interpr et this result as normal/abnormal . [facility]2016-07-14 20:14:00 Test Item Value Reference Range Interpretation Comments Total Protein (test code = Total 6.1 6.4-8.4 Protein) [facility]2016-07-14 20:14:00 Test Item Value Reference Range Interpretation Comments Bili Total (test code = Bili Total) 0.5 0.2-1.3 [facility]2016-07-14 20:14:00 Test Item Value Reference Range Interpretation Comments Calcium Lvl (test code = Calcium Lvl) 7.7 8.5-10.5 [facility]2016-07-14 20:14:00 Test Item Value Reference Range Interpretation Comments CO2 (test code = CO2) 26 24-32 [facility]2016-07-14 20:14:00 Test Item Value Reference Range Interpretation Comments Chloride Lvl (test code = Chloride Lvl) 110 95-109 [facility]2016-07-14 20:14:00 Test Item Value Reference Range Interpretation Comments Potassium Lvl (test code = Potassium 3.4 3.5-5.1 Lvl) [facility]2016-07-14 20:14:00 Test Item Value Reference Range Interpretation Comments Sodium Lvl (test code = Sodium Lvl) 143 135-145 [facility]2016-07-14 20:14:00 Test Item Value Reference Range Interpretation Comments Creatinine Lvl (test code = Creatinine 0.61 0.50-1.40 Lvl) [facility]2016-07-14 20:14:00 Test Item Value Reference Range Interpretation Comments BUN (test code = BUN) 9 7-22 [facility]2016-07-14 20:14:00 Test Item Value Reference Range Interpretation Comments Alk Phos (test code = Alk Phos) 76 39-136 [facility]2016-07-14 20:14:00 Test Item Value Reference Range Interpretation Comments Glucose Lvl (test code = Glucose Lvl) 88 70-99 [facility]2016-07-14 20:14:00 Test Item Value Reference Range Interpretation Comments Albumin Lvl (test code = Albumin Lvl) 3.3 3.5-5.0 [facility]2016-07-14 20:14:00 Test Item Value Reference Range Interpretation Comments ALANINE AMINOTRANSFERASE 15 See_Comment [A utomated message] (test code = ALANINE The sys tem which AMINOTRANSFERASE) generated this result transmitted ref erence range: <=65. Th e reference range was not used to int erpret this result as normal/abnormal . [facility] AliceZewiehbMDAXCKODKR4372-83-03 20:14:00 Test Item Value Reference Range Interpretation Comments Lymphocytes # (test code = Lymphocytes 1.8 1.0-5.5 #) [facility] AliceGimrtcnQPYKRWTDMP9117-43-71 20:14:00 Test Item Value Reference Range Interpretation Comments Monocytes # (test code 0.5 See_Comment [Aut omated message] The = Monocytes #) system which generated this result tra nsmitted reference range : <=0.8. The reference r melody was not used to int erpret this result as normal/abnormal . [facility] AliceIaieulrOTWWZFSPLT3168-02-86 20:14:00 Test Item Value Reference Range Interpretation Comments Basophils (test code = 1.0 See_Comment [Aut omated message] The Basophils) system which ge nerated this result tra nsmitted reference range : <=1.0. The reference r melody was not used to int erpret this result as normal/abnormal . [facility] AliceBpxhxlaJCXJIZRCKX9167-79-28 20:14:00 Test Item Value Reference Range Interpretation Comments Segs-Bands # (test code = Segs-Bands #) 4.1 1.5-8.1 [facility] AliceAzwigrfOPNKRPXWPZ9091-75-51 20:14:00 Test Item Value Reference Range Interpretation Comments Eosinophils # (test code 0.2 See_Comment [A utomated message] The = Eosinophils #) system whic h generated this result tra nsmitted reference range : <=0.5. The reference r melody was not used to int erpret this result as normal/abnormal . [facility] AliceZahwfemVIKJMMEVLV8481-81-52 20:14:00 Test Item Value Reference Range Interpretation Comments Basophils # (test code 0.1 See_Comment [Aut omated message] The = Basophils #) system which generated this result tra nsmitted reference range : <=0.2. The reference r melody was not used to int erpret this result as normal/abnormal . [facility] AliceHchtolpEVNYCGILUT1573-13-99 20:14:00 Test Item Value Reference Range Interpretation Comments Segs (test code = Segs) 61.4 45.0-75.0 [facility] AliceHqtldzxTTCYCRBNLB2095-92-38 20:14:00 Test Item Value Reference Range Interpretation Comments Eosinophils (test code = 3.5 See_Comment [A utomated message] The Eosinophils) system which ge nerated this result tra nsmitted reference range : <=4.0. The reference r melody was not used to int erpret this result as normal/abnormal . [facility] AlicePtxwgtsHGXXEZDHDN6005-50-77 20:14:00 Test Item Value Reference Range Interpretation Comments Lymphocytes (test code = Lymphocytes) 26.6 20.0-40.0 [facility] AliceFafwutzIXTSGZXZUB5468-66-31 20:14:00 Test Item Value Reference Range Interpretation Comments Monocytes (test code = Monocytes) 7.5 2.0-12.0 [facility] AliceZxfbjiaPLYIMYAOJT7562-37-43 20:14:00 Test Item Value Reference Range Interpretation Comments WBC X 10x3 (test code = WBC X 10x3) 6.7 3.7-10.4 [facility] AliceOevweeyJVHFTBTGQC0931-21-43 20:14:00 Test Item Value Reference Range Interpretation Comments Hgb (test code = Hgb) 12.2 12.0-16.0 [facility] AliceVjbilajWRKIVEKLJH1824-21-79 20:14:00 Test Item Value Reference Range Interpretation Comments RBC X 10x6 (test code = RBC X 10x6) 4.26 4.20-5.40 [facility] AliceRztankqAKLIMQGREU8623-09-54 20:14:00 Test Item Value Reference Range Interpretation Comments MCH (test code = MCH) 28.7 pg 27.0-31.0 [facility] AliceJxgbnayCTCILMCYJL0509-54-36 20:14:00 Test Item Value Reference Range Interpretation Comments MCV (test code = MCV) 86.0 80.0-98.0 [facility] AliceKkosvybCKHWMMHKJS6649-49-22 20:14:00 Test Item Value Reference Range Interpretation Comments RDW (test code = RDW) 14.9 11.5-14.5 [facility] AliceAepdqqjAQXUXENEIS0081-64-50 20:14:00 Test Item Value Reference Range Interpretation Comments MCHC (test code = MCHC) 33.3 32.0-36.0 [facility] AliceCprxtadRLWNQHQQGF7344-98-00 20:14:00 Test Item Value Reference Range Interpretation Comments Hct (test code = Hct) 36.6 36.0-48.0 [facility] AliceEbqdwutJIXMUXVWOB9519-76-67 20:14:00 Test Item Value Reference Range Interpretation Comments MPV (test code = MPV) 8.7 7.4-10.4 [facility] AliceSflqacsAIHINJTXCV0491-22-43 20:14:00 Test Item Value Reference Range Interpretation Comments Platelet (test code = Platelet) 171 133-450 [facility] AND [id number] 20:14:00 Test Item Value Reference Range Interpretation Comments UA WBC (test code = UA WBC) 0-2 /HPF [facility] AND [id number] 20:14:00 Test Item Value Reference Range Interpretation Comments UA Nitrite (test code Negative (03/11/16 3:14 = UA Nitrite) PM) [facility] AND [id number] 20:14:00 Test Item Value Reference Range Interpretation Comments UA Leuk Est (test Negative (03/11/16 3:14 code = UA Leuk Est) PM) [facility] AND [id number] 20:14:00 Test Item Value Reference Range Interpretation Comments UA Bacteria (test code = UA Occasional /HPF Bacteria) [facility] AND [id number] 20:14:00 Test Item Value Reference Range Interpretation Comments UA RBC (test code = 0-2 /HPF See_Comment [Automa marcelle message] The UA RBC) system which ge nerated this result tra nsmitted reference range : <=2. The reference range was not used to interpr et this result as aranza l/abnormal. [facility] AND [id number] 20:14:00 Test Item Value Reference Range Interpretation Comments UA Sq Epi (test code = UA Sq Occasional /LPF Epi) [facility] AND [id number] 20:14:00 Test Item Value Reference Range Interpretation Comments UA Blood (test code = Negative (03/11/16 3:14 UA Blood) PM) [facility] AND [id number] 20:14:00 Test Item Value Reference Range Interpretation Comments UA Urobilinogen (test code = UA 0.2 0.1-1.0 Urobilinogen) [facility] AND [id number] 20:14:00 Test Item Value Reference Range Interpretation Comments UA Turbidity (test code = Clear (03/11/16 3:14 UA Turbidity) PM) [facility] AND [id number] 20:14:00 Test Item Value Reference Range Interpretation Comments UA Glucose (test code Negative (03/11/16 3:14 = UA Glucose) PM) [facility] AND [id number] 20:14:00 Test Item Value Reference Range Interpretation Comments UA Spec Grav (test code *NA*(03/11/16 3:14 PM) = UA Spec Grav) [facility] AND [id number] 20:14:00 Test Item Value Reference Range Interpretation Comments UA pH (test code = UA pH) 6.5 1 5.0-8.0 [facility] AND [id number] 20:14:00 Test Item Value Reference Range Interpretation Comments UA Ketones (test code Negative *NA*(03/11/16 = UA Ketones) 3:14 PM) [facility] AND [id number] 20:14:00 Test Item Value Reference Range Interpretation Comments UA Bili (test code = Negative *NA*(03/11/16 UA Bili) 3:14 PM) [facility] AND [id number] 20:14:00 Test Item Value Reference Range Interpretation Comments UA Protein (test code Negative (03/11/16 3:14 = UA Protein) PM) [facility] AND [id number] 20:14:00 Test Item Value Reference Range Interpretation Comments UA Color (test code = Yellow *NA*(03/11/16 UA Color) 3:14 PM) [facility] AND [id number] 00:22:00 Test Item Value Reference Range Interpretation Comments UA Color (test code = Yellow *NA*(02/29/16 7:22 UA Color) PM) [facility] [id number] 00:22:00 Test Item Value Reference Range Interpretation Comments UA pH (test code = UA pH) 6.0 1 5.0-8.0 [facility] [id number] 00:22:00 Test Item Value Reference Range Interpretation Comments UA Turbidity (test code = Clear (02/29/16 7:22 UA Turbidity) PM) [facility] AND [id number] 00:22:00 Test Item Value Reference Range Interpretation Comments UA Spec Grav (test code = UA Spec 1.015 1 Grav) [facility] AND [id number] 00:22:00 Test Item Value Reference Range Interpretation Comments UA Leuk Est (test code Trace *ABN*(02/29/16 7:22 = UA Leuk Est) PM) [facility] AND [id number] 00:22:00 Test Item Value Reference Range Interpretation Comments UA Bacteria (test code = UA Few /HPF Bacteria) [facility] AND [id number] 00:22:00 Test Item Value Reference Range Interpretation Comments UA RBC (test None Seen See_Comment [Automated [place]] code = UA RBC) (02/29/16 7:22 PM) The [employer] which generated this result transmitted ref erence range: <=2. The reference range was not used to int erpret this result as normal/abnormal . [facility] AND [id number] 00:22:00 Test Item Value Reference Range Interpretation Comments UA Sq Epi (test code = UA Sq Moderate /LPF Epi) [facility] AND [id number] 00:22:00 Test Item Value Reference Range Interpretation Comments UA WBC (test code = UA WBC) 0-2 /HPF [facility] AND [id number] 00:22:00 Test Item Value Reference Range Interpretation Comments UA Blood (test code = Negative (02/29/16 7:22 UA Blood) PM) [facility] AND [id number] 00:22:00 Test Item Value Reference Range Interpretation Comments UA Urobilinogen (test code = UA 1.0 0.1-1.0 Urobilinogen) [facility] AND [id number] 00:22:00 Test Item Value Reference Range Interpretation Comments UA Nitrite (test code Negative (02/29/16 7:22 = UA Nitrite) PM) [facility] AND [id number] 00:22:00 Test Item Value Reference Range Interpretation Comments UA Trichomonas (test code = UA Few /HPF Trichomonas) [facility] [id number] 00:22:00 Test Item Value Reference Range Interpretation Comments UA Protein (test code Negative (02/29/16 7:22 = UA Protein) PM) [facility] [id number] 00:22:00 Test Item Value Reference Range Interpretation Comments UA Bili (test code = Negative *NA*(02/29/16 UA Bili) 7:22 PM) [facility] AND [id number] 00:22:00 Test Item Value Reference Range Interpretation Comments UA Ketones (test code Negative *NA*(02/29/16 = UA Ketones) 7:22 PM) [facility] AND [id number] 00:22:00 Test Item Value Reference Range Interpretation Comments UA Glucose (test code Negative (02/29/16 7:22 = UA Glucose) PM) [facility] Cle[facility]neCHF TechnologiesCARDIAC [id number] 23:14:00 Test Item Value Reference Range Interpretation Comments Troponin-I (test code no gt See_Comment [Auto mated message] The = Troponin-I) system which g enerated this result transmit marcelle reference range : <=0.40. The reference r melody was not used to interpr et this result as aranza l/abnormal. [facility] [employer] [id number] 23:14:00 Test Item Value Reference Range Interpretation Comments CK MB (test code = CK MB) 1.1 0.5-3.6 [facility] CleburneSchoooools.comAC VAPLWNN9825-09-66 23:14:00 Test Item Value Reference Range Interpretation Comments Total CK (test code = Total CK) 136 12-191 [facility] CleburneSchoooools.comAC ZBNDZOF2644-51-07 23:14:00 Test Item Value Reference Range Interpretation Comments proBNP (test code = 7 See_Comment [Automa marcelle message] The proBNP) system which ge nerated this result tra nsmitted reference range : <=125. The reference r melody was not used to int erpret this result as aranza l/abnormal. [facility] [employer] SolutionsCARDIAC [id number] 23:14:00 Test Item Value Reference Range Interpretation Comments CK-MB INDEX (test 0.8 See_Comment [Automate d message] The code = CK-MB INDEX) system w [facility] generated this result transmit marcelle reference range : <=2.5. The reference range was not used to interpr et this result as aranza l/abnormal. [facility]2016-07-03 23:14:00 Test Item Value Reference Range Interpretation Comments eGFR (test code = eGFR) 80 [facility]2016-07-03 23:14:00 Test Item Value Reference Range Interpretation Comments ASPARTATE TRANSAMINASE 13 See_Comment [Aut omated message] (test code = ASPARTATE The s ystem which TRANSAMINASE) generated this result transmitted ref erence range: <=37. Th e reference range was not used to interpr et this result as normal/abnormal . [facility]2016-07-03 23:14:00 Test Item Value Reference Range Interpretation Comments A/G Ratio (test code = A/G Ratio) 1.0 0.7-1.6 [place] [id number] 23:14:00 Test Item Value Reference Range Interpretation Comments Globulin (test code = Globulin) 3.6 2.0-4.0 [facility]2016-07-03 23:14:00 Test Item Value Reference Range Interpretation Comments B/C Ratio (test code = B/C Ratio) 9 6-25 [facility]2016-07-03 23:14:00 Test Item Value Reference Range Interpretation Comments Total Protein (test code = Total 7.1 6.4-8.4 Protein) [facility]2016-07-03 23:14:00 Test Item Value Reference Range Interpretation Comments AGAP (test code = AGAP) 10.0 10.0-20.0 [facility]2016-07-03 23:14:00 Test Item Value Reference Range Interpretation Comments Sodium Lvl (test code = Sodium Lvl) 143 135-145 [facility]2016-07-03 23:14:00 Test Item Value Reference Range Interpretation Comments Potassium Lvl (test code = Potassium 3.0 3.5-5.1 Lvl) [facility]2016-07-03 23:14:00 Test Item Value Reference Range Interpretation Comments Creatinine Lvl (test code = Creatinine 0.88 0.50-1.40 Lvl) [facility]2016-07-03 23:14:00 Test Item Value Reference Range Interpretation Comments CO2 (test code = CO2) 30 24-32 [facility]2016-07-03 23:14:00 Test Item Value Reference Range Interpretation Comments Bili Total (test code = Bili Total) 0.6 0.2-1.3 [facility]2016-07-03 23:14:00 Test Item Value Reference Range Interpretation Comments Calcium Lvl (test code = Calcium Lvl) 8.7 8.5-10.5 [facility]2016-07-03 23:14:00 Test Item Value Reference Range Interpretation Comments Chloride Lvl (test code = Chloride Lvl) 106 95-109 [facility]2016-07-03 23:14:00 Test Item Value Reference Range Interpretation Comments ALANINE AMINOTRANSFERASE 15 See_Comment [A utomated message] (test code = ALANINE The sys tem which AMINOTRANSFERASE) generated this result transmitted ref erence range: <=65. Th e reference range was not used to int erpret this result as normal/abnormal . [facility]2016-07-03 23:14:00 Test Item Value Reference Range Interpretation Comments Alk Phos (test code = Alk Phos) 88 39-136 [facility]2016-07-03 23:14:00 Test Item Value Reference Range Interpretation Comments Albumin Lvl (test code = Albumin Lvl) 3.5 3.5-5.0 [facility]2016-07-03 23:14:00 Test Item Value Reference Range Interpretation Comments BUN (test code = BUN) 8 7-22 [facility]2016-07-03 23:14:00 Test Item Value Reference Range Interpretation Comments Glucose Lvl (test code = Glucose Lvl) 89 70-99 [facility] AliceDblgjrmKOEQFQYCZT8182-09-37 23:14:00 Test Item Value Reference Range Interpretation Comments PROTIME (test code = PROTIME) 13.2 s 12.0-14.7 [facility] AliceBthyviaUQXEUGGXAP3679-19-53 23:14:00 Test Item Value Reference Range Interpretation Comments INR (test code = INR) 0.97 0.85-1.17 [facility] AliceYjcefmdLQQJQSMHEM6973-09-73 23:14:00 Test Item Value Reference Range Interpretation Comments RDW (test code = RDW) 15.3 11.5-14.5 [facility] AliceNucgverABBDDTBXJZ5391-19-08 23:14:00 Test Item Value Reference Range Interpretation Comments MCHC (test code = MCHC) 32.9 32.0-36.0 [facility] AliceVxkdcksJQNZVFESFU4777-72-89 23:14:00 Test Item Value Reference Range Interpretation Comments Hct (test code = Hct) 43.8 36.0-48.0 [facility] AliceTwkqplvHUWIMRIKWI1389-73-92 23:14:00 Test Item Value Reference Range Interpretation Comments MCH (test code = MCH) 28.1 pg 27.0-31.0 [facility] AliceYeszntmKOAGYPZECY9627-13-79 23:14:00 Test Item Value Reference Range Interpretation Comments MCV (test code = MCV) 85.5 80.0-98.0 [facility] AliceUdfzpyoNDLPMDHYHO7322-04-96 23:14:00 Test Item Value Reference Range Interpretation Comments WBC X 10x3 (test code = WBC X 10x3) 5.3 3.7-10.4 [facility] AliceYwvuvikNPIRYSACDI3227-42-35 23:14:00 Test Item Value Reference Range Interpretation Comments Hgb (test code = Hgb) 14.4 12.0-16.0 [facility] AliceNhkcdtlVBUXPEONJU2314-08-14 23:14:00 Test Item Value Reference Range Interpretation Comments RBC X 10x6 (test code = RBC X 10x6) 5.12 4.20-5.40 [facility] AliceNcbqxayEDDEBOVIXW3643-92-88 23:14:00 Test Item Value Reference Range Interpretation Comments Platelet (test code = Platelet) 197 133-450 [facility] AliceGluwdmhUCHOTZHPFV7841-97-78 23:14:00 Test Item Value Reference Range Interpretation Comments MPV (test code = MPV) 8.1 7.4-10.4 [facility] AliceQvzsvvzCLXNVUYVNU6188-50-35 23:14:00 Test Item Value Reference Range Interpretation Comments Segs (test code = Segs) 57.2 45.0-75.0 [facility] AliceSittvegHGRSMUBPUE3955-95-55 23:14:00 Test Item Value Reference Range Interpretation Comments Monocytes (test code = Monocytes) 11.7 2.0-12.0 [facility] AliceOjnuhidMFNUTRJAPR1913-44-64 23:14:00 Test Item Value Reference Range Interpretation Comments Lymphocytes (test code = Lymphocytes) 24.1 20.0-40.0 [facility] AliceYdjknydYMINOVDZUM8856-16-26 23:14:00 Test Item Value Reference Range Interpretation Comments Basophils # (test code 0.1 See_Comment [Aut omated message] The = Basophils #) system which generated this result tra nsmitted reference range : <=0.2. The reference r melody was not used to int erpret this result as normal/abnormal . [facility] AliceAtsxpwmGJUWYVLDWY7035-67-70 23:14:00 Test Item Value Reference Range Interpretation Comments Monocytes # (test code 0.6 See_Comment [Aut omated message] The = Monocytes #) system which generated this result tra nsmitted reference range : <=0.8. The reference r melody was not used to int erpret this result as normal/abnormal . [facility] AliceZupmvdjJZWROSWMPM4700-66-28 23:14:00 Test Item Value Reference Range Interpretation Comments Lymphocytes # (test code = Lymphocytes 1.3 1.0-5.5 #) [facility] AliceFwpjujuCKJPJVPRKG6276-15-34 23:14:00 Test Item Value Reference Range Interpretation Comments Eosinophils # (test code 0.3 See_Comment [A utomated message] The = Eosinophils #) system whic h generated this result tra nsmitted reference range : <=0.5. The reference r melody was not used to int erpret this result as normal/abnormal . [facility] AliceWfwbgwmDDEULBYWSP1115-28-85 23:14:00 Test Item Value Reference Range Interpretation Comments Segs-Bands # (test code = Segs-Bands #) 3.0 1.5-8.1 [facility] AliceHyfvsdnVRXLZYRBCA4536-82-09 23:14:00 Test Item Value Reference Range Interpretation Comments Eosinophils (test code = 5.9 See_Comment [A utomated message] The Eosinophils) system which ge nerated this result tra nsmitted reference range : <=4.0. The reference r melody was not used to int erpret this result as normal/abnormal . [facility] AliceJgxcuhxGLNOILCVYE6894-95-13 23:14:00 Test Item Value Reference Range Interpretation Comments Basophils (test code = 1.1 See_Comment [Aut omated message] The Basophils) system which ge nerated this result tra nsmitted reference range : <=1.0. The reference r melody was not used to int erpret this result as normal/abnormal . [facility] ALEMOLU3700-[facility] 17:04:00 Test Item Value Reference Range Interpretation Comments CK MB Index (test 0.7 See_Comment [Automate d message] The code = CK MB Index) system w [facility] generated this result transmit marcelle reference range : <=2.5. The reference range was not used to interpr et this result as aranza l/abnormal. [facility]neAt[facility] Moguls RYDMGPU7205-79-98 17:04:00 Test Item Value Reference Range Interpretation Comments CK MB (test code = CK MB) 0.7 0.5-3.6 [facility] PLNPNBX8469-40-02 17:04:00 Test Item Value Reference Range Interpretation Comments Troponin-I (test code no gt See_Comment [Auto mated message] The = Troponin-I) system which g enerated this result transmit marcelle reference range : <=0.40. The reference r melody was not used to interpr et this result as aranza l/abnormal. [facility] TylerMCube, IncDZMUCEA9442-60-53 17:04:00 Test Item Value Reference Range Interpretation Comments Total CK (test code = Total CK) 97 12-191 [facility]neXdpomjfGCJDRWSGRYTG8384-40-65 17:04:00 Test Item Value Reference Range Interpretation Comments AGAP (test code = AGAP) 18.3 10.0-20.0 [facility] CleburneYbvccrtWOXXRJUIPLPH1692-16-24 17:04:00 Test Item Value Reference Range Interpretation Comments eGFR (test code = eGFR) 78 [facility] CleburnePgvfhotIITHXKMRCUZW7621-88-84 17:04:00 Test Item Value Reference Range Interpretation Comments Glucose Lvl (test code = Glucose Lvl) 134 70-99 [facility] CleburneEyoryjeKMJYZPQTBFFM2965-60-10 17:04:00 Test Item Value Reference Range Interpretation Comments BUN (test code = BUN) 10 7-22 [facility] CleburneNwdvyseHNFWUSKQDXQP0320-92-42 17:04:00 Test Item Value Reference Range Interpretation Comments Creatinine Lvl (test code = Creatinine 0.90 0.50-1.40 Lvl) [facility] CleburneXzymkyjSVXITSMYYAXW3634-01-63 17:04:00 Test Item Value Reference Range Interpretation Comments CO2 (test code = CO2) 20 24-32 [facility]ZvycfveZAQHSSLFOFZQ1171-48-07 17:04:00 Test Item Value Reference Range Interpretation Comments Calcium Lvl (test code = Calcium Lvl) 9.4 8.5-10.5 [facility]fsBSSSYDUKXDDS6483-21-31 17:04:00 Test Item Value Reference Range Interpretation Comments Potassium Lvl (test code = Potassium 4.3 3.5-5.1 Lvl) [facility]TtiulmwCMXUJTWEYVHK1156-07-21 17:04:00 Test Item Value Reference Range Interpretation Comments Chloride Lvl (test code = Chloride Lvl) 106 95-109 [facility]JkipbkzXNIODCIMTRIF9427-85-92 17:04:00 Test Item Value Reference Range Interpretation Comments Sodium Lvl (test code = Sodium Lvl) 140 135-145 [facility] AlicePccvoveLXKSJQMVBT4766-90-39 17:04:00 Test Item Value Reference Range Interpretation Comments WBC (test code = WBC) 9.6 3.7-10.4 [facility] AliceLvqttezTQNWIBUUTB7832-09-92 17:04:00 Test Item Value Reference Range Interpretation Comments Hct (test code = Hct) 41.4 36.0-48.0 [facility] AliceTtowmcvUJBUCLDUDG8766-79-95 17:04:00 Test Item Value Reference Range Interpretation Comments Hgb (test code = Hgb) 13.1 12.0-16.0 [facility] AliceJbynrdePYIUZFUXJV4230-30-33 17:04:00 Test Item Value Reference Range Interpretation Comments RBC (test code = RBC) 4.74 4.20-5.40 [facility] AliceSreigzhBBTLWHNTIG9697-38-26 17:04:00 Test Item Value Reference Range Interpretation Comments MCV (test code = MCV) 87.3 80.0-98.0 [facility] AliceJckdocpIHQYAVBHSV6594-71-94 17:04:00 Test Item Value Reference Range Interpretation Comments MCHC (test code = MCHC) 31.5 32.0-36.0 [facility] AliceHxbpipzWKSETQMHSD0443-70-68 17:04:00 Test Item Value Reference Range Interpretation Comments MCH (test code = MCH) 27.5 pg 27.0-31.0 [facility] AliceTwtdszeMSZZDWJSPX2465-36-67 17:04:00 Test Item Value Reference Range Interpretation Comments MPV (test code = MPV) 8.7 7.4-10.4 [facility] AliceEbindugTBUNHTQVHO8779-72-75 17:04:00 Test Item Value Reference Range Interpretation Comments Platelet (test code = Platelet) 226 133-450 [facility] AliceQvumfivLZSLKJXPWQ9694-11-76 17:04:00 Test Item Value Reference Range Interpretation Comments RDW (test code = RDW) 14.4 11.5-14.5 [facility] AliceBhnpjluEWGXTZLXBW2258-49-51 17:04:00 Test Item Value Reference Range Interpretation Comments Monocytes # (test code 0.1 See_Comment [Aut omated message] The = Monocytes #) system which generated this result tra nsmitted reference range : <=0.8. The reference r melody was not used to int erpret this result as normal/abnormal . [facility]XgchtylUWNQXMQHEK6842-24-37 17:04:00 Test Item Value Reference Range Interpretation Comments Lymphocytes # (test code = Lymphocytes 0.5 1.0-5.5 #) [facility] AliceBlpxguhNIUDLTBWLX7121-65-27 17:04:00 Test Item Value Reference Range Interpretation Comments RBC Morph (test code = Normal (09/04/15 11:04 RBC Morph) AM) [facility] AliceHukflpxRKXVXKOTRL3782-58-66 17:04:00 Test Item Value Reference Range Interpretation Comments Plt Morph (test code = Normal (09/04/15 11:04 Plt Morph) AM) [facility] AliceQhgxzxiMIFUDMYFDR5017-84-56 17:04:00 Test Item Value Reference Range Interpretation Comments Segs (test code = Segs) 93.3 45.0-75.0 [facility] AliceAzidbbzFOOUBCQLDB7873-93-54 17:04:00 Test Item Value Reference Range Interpretation Comments Basophils (test code = 0.2 See_Comment [Aut omated message] The Basophils) system which ge nerated this result tra nsmitted reference range : <=1.0. The reference r melody was not used to int erpret this result as normal/abnormal . [facility] AliceLqfzrzhRSCGTJYXZX7202-34-03 17:04:00 Test Item Value Reference Range Interpretation Comments Lymphocytes (test code = Lymphocytes) 5.4 20.0-40.0 [facility] AliceUqslsoaIYNATFAJOF3571-13-22 17:04:00 Test Item Value Reference Range Interpretation Comments Monocytes (test code = Monocytes) 1.1 2.0-12.0 [facility] AliceIuisvlaWBBMFAAFEP7104-36-02 17:04:00 Test Item Value Reference Range Interpretation Comments Segs-Bands # (test code = Segs-Bands #) 9.0 [facility].5[facility]8.1 [facility]77 17:04:00 Test Item Value Reference Range Interpretation Comments VLDL (test code = VLDL) 14 [facility]EjteolySYXBHP1357-11-28 17:04:00 Test Item Value Reference Range Interpretation Comments Chol (test code = Chol) 198 [facility]HorcnikIECKLG5123-87-94 17:04:00 Test Item Value Reference Range Interpretation Comments HDL (test code = HDL) 54 [facility]WoovntwDQXWBC5623-68-10 17:04:00 Test Item Value Reference Range Interpretation Comments Trig (test code = Trig) 71 [facility]OqkcgdcWHRSYW7070-75-99 17:04:00 Test Item Value Reference Range Interpretation Comments LDL (Calculated) (test code = LDL 130 (Calculated)) [facility]IqbkigpOKJFEL1519-73-38 17:04:00 Test Item Value Reference Range Interpretation Comments CHD Risk (test code = CHD Risk) 3.67 3.90-5.80 [facility] CleburneSchoooools.comAC MDSQPMD8558-21-30 10:50:00 Test Item Value Reference Range Interpretation Comments CK MB Index (test 0.6 See_Comment [Automate d message] The code = CK MB Index) [facility] generated this result transmit marcelle reference range : <=2.5. The reference range was not used to interpr et this result as aranza l/abnormal. [facility]ne[facility] YNXKZXE3518-84-64 10:50:00 Test Item Value Reference Range Interpretation Comments CK MB (test code = CK MB) 0.6 0.5-3.6 [facility] PLVHQDM8217-05-07 10:50:00 Test Item Value Reference Range Interpretation Comments Troponin-I (test code no gt See_Comment [Auto mated message] The = Troponin-I) system which g enerated this result transmit marcelle reference range : <=0.40. The reference r melody was not used to interpr et this result as aranza l/abnormal. [facility] ILJVYBS0307-28-10 10:50:00 Test Item Value Reference Range Interpretation Comments Total CK (test code = Total CK) 103 12-191 [facility] WPFWSDQ4082-67-57 04:33:00 Test Item Value Reference Range Interpretation Comments Total CK (test code = Total CK) 113 12-191 [facility] CleburneSchooo[facility].com LYFPNWQ8692-93-39 04:33:00 Test Item Value Reference Range Interpretation Comments Troponin-I (test code no gt See_Comment [Auto mated message] The = Troponin-I) system which g enerated this result transmit marcelle reference range : <=0.40. The reference r melody was not used to interpr et this result as aranza l/abnormal. [facility] XZQLOMG8907-36-38 04:33:00 Test Item Value Reference Range Interpretation Comments CK MB (test code = CK MB) 0.8 0.5-3.6 [facility] CleburneSchoooools.comAC OMCOVJH0461-27-98 04:33:00 Test Item Value Reference Range Interpretation Comments CK MB Index (test 0.7 See_Comment [Automate d message] The code = CK MB Index) system [facility] generated this result transmit marcelle reference range : <=2.5. The reference range was not used to interpr et this result as aranza l/abnormal. [facility] [employer] Count2016-01-07 04:33:00 Test Item Value Reference Range Interpretation Comments eGFR (test code = eGFR) [address] [facility] Motility Count2016-01-07 04:33:00 Test Item Value Reference Range Interpretation Comments BUN (test code = BUN) 8 7-[address] [facility] [employer] [id number] 04:33:00 Test Item Value Reference Range Interpretation Comments Creatinine Lvl (test code = Creatinine 0.82 0.50-1.40 Lvl) [facility] Motility Count2016-01-07 04:33:00 Test Item Value Reference Range Interpretation Comments Glucose Lvl (test code = Glucose Lvl) 115 70-[address] [facility] Motility Count2016-01-07 04:33:00 Test Item Value Reference Range Interpretation Comments Chloride Lvl (test code = Chloride Lvl) 106 95-[address] [facility] Motility Count2016-01-07 04:33:00 Test Item Value Reference Range Interpretation Comments Potassium Lvl (test code = Potassium 3.9 3.5-5.1 Lvl) [facility] Motility Count2016-01-07 04:33:00 Test Item Value Reference Range Interpretation Comments Sodium Lvl (test code = Sodium Lvl) 141 135-[address] [facility] [employer] VDIOK3112-22-12 04:33:00 Test Item Value Reference Range Interpretation Comments AGAP (test code = AGAP) 13.9 10.0-20.0 [facility]2016-01-07 04:33:00 Test Item Value Reference Range Interpretation Comments Calcium Lvl (test code = Calcium Lvl) 9.2 8.5-10.5 [facility]2016-01-07 04:33:00 Test Item Value Reference Range Interpretation Comments CO2 (test code = CO2) 25 24-32 [facility] AliceYqmzbemVWUQNQUICW3923-40-86 04:33:00 Test Item Value Reference Range Interpretation Comments WBC (test code = WBC) 7.4 3.7-10.4 [facility] AliceIgtvkqlIQETVXBXDT8207-97-06 04:33:00 Test Item Value Reference Range Interpretation Comments Hgb (test code = Hgb) 12.4 12.0-16.0 [facility] AliceFnrrhaoVMOXWSAAXM5145-62-40 04:33:00 Test Item Value Reference Range Interpretation Comments RBC (test code = RBC) 4.57 4.20-5.40 [facility] AliceLpbkvwoPUAMAJOJSE6609-51-62 04:33:00 Test Item Value Reference Range Interpretation Comments Hct (test code = Hct) 39.4 36.0-48.0 [facility] AliceSbkgmuaHTWSJSVXIT4621-65-12 04:33:00 Test Item Value Reference Range Interpretation Comments MCV (test code = MCV) 86.1 80.0-98.0 [facility] AliceWljdiwlABGKYAVHYD7453-60-97 04:33:00 Test Item Value Reference Range Interpretation Comments RDW (test code = RDW) 14.7 11.5-14.5 [facility] AliceVbvghleDXJLYDHQKE6193-30-62 04:33:00 Test Item Value Reference Range Interpretation Comments MCHC (test code = MCHC) 31.6 32.0-36.0 [facility] AliceZwfyywcRKFYCZBDXL7819-26-13 04:33:00 Test Item Value Reference Range Interpretation Comments MCH (test code = MCH) 27.2 pg 27.0-31.0 [facility] AliceNtzmnobUHGFSPPITZ3954-85-42 04:33:00 Test Item Value Reference Range Interpretation Comments MPV (test code = MPV) 8.3 7.4-10.4 [facility] AliceRfkygtmHRVQBSUXVS5556-82-68 04:33:00 Test Item Value Reference Range Interpretation Comments Platelet (test code = Platelet) 239 133-450 [facility] AliceNvxacilVDVDQORGUM3252-32-19 04:33:00 Test Item Value Reference Range Interpretation Comments Eosinophils (test code = 5.5 See_Comment [A utomated message] The Eosinophils) system which ge nerated this result tra nsmitted reference range : <=4.0. The reference r melody was not used to int erpret this result as normal/abnormal . [facility] AliceUuiplfyQDXSYTFGQW6221-63-71 04:33:00 Test Item Value Reference Range Interpretation Comments Monocytes (test code = Monocytes) 6.5 2.0-12.0 [facility] AliceOieuykrXRONIUIRNI5967-35-51 04:33:00 Test Item Value Reference Range Interpretation Comments Lymphocytes (test code = Lymphocytes) 31.7 20.0-40.0 [facility] AlicePxvnqigUVQGNVBFVJ6007-36-97 04:33:00 Test Item Value Reference Range Interpretation Comments Segs (test code = Segs) 55.0 45.0-75.0 [facility] AliceXwqkfiaYMHGXWCMJO4022-72-11 04:33:00 Test Item Value Reference Range Interpretation Comments Monocytes # (test code 0.5 See_Comment [Aut omated message] The = Monocytes #) system which generated this result tra nsmitted reference range : <=0.8. The reference r melody was not used to int erpret this result as normal/abnormal . [facility] AlicePplocfwRIHFLRDRJD2058-40-07 04:33:00 Test Item Value Reference Range Interpretation Comments Lymphocytes # (test code = Lymphocytes 2.3 1.0-5.5 #) [facility] AliceGqflugpBBPDTQNDPG2914-92-39 04:33:00 Test Item Value Reference Range Interpretation Comments Segs-Bands # (test code = Segs-Bands #) 4.0 1.5-8.1 [facility] AliceNvdvdwnXUMUMJQDYA9895-71-84 04:33:00 Test Item Value Reference Range Interpretation Comments Basophils (test code = 1.3 See_Comment [Aut omated message] The Basophils) system which ge nerated this result tra nsmitted reference range : <=1.0. The reference r melody was not used to int erpret this result as normal/abnormal . [facility] AliceKpazuxqBWUEQGFVYG8476-41-06 04:33:00 Test Item Value Reference Range Interpretation Comments Basophils # (test code 0.1 See_Comment [Aut omated message] The = Basophils #) system which generated this result tra nsmitted reference range : <=0.2. The reference r melody was not used to int erpret this result as normal/abnormal . [facility]neQzzjxxrDLBWDVTFKD1788-52-04 04:33:00 Test Item Value Reference Range Interpretation Comments Eosinophils # (test code 0.4 See_Comment [A utomated message] The = Eosinophils #) system whic h generated this result tra nsmitted reference range : <=0.5. The reference r melody was not used to int erpret this result as normal/abnormal . [facility] [employer] OXEPEWE7572-83-36 10:25:00 Test Item Value Reference Range Interpretation Comments Troponin-I (test code no gt See_Comment [Auto mated message] The = Troponin-I) system which g enerated this result transmit marcelle reference range : <=0.40. The reference r melody was not used to interpr et this result as aranza l/abnormal. [facility] [employer] FTTHPDD2912-90-60 10:25:00 Test Item Value Reference Range Interpretation Comments Total CK (test code = Total CK) 75 12-[address] [facility] [employer] SWDVLFQ1693-98-89 10:25:00 Test Item Value Reference Range Interpretation Comments CK MB (test code = CK MB) 0.9 0.5-3.[address] [facility] [employer] NPUDRAN4525-98-52 10:25:00 Test Item Value Reference Range Interpretation Comments CK-MB INDEX (test 1.2 See_Comment [Automate d message] The code = CK-MB INDEX) system [facility] generated this result transmit marcelle reference range : <=2.5. The reference range was not used to interpr et this result as aranza l/abnormal. [facility] [employer] [id number] 10:25:00 Test Item Value Reference Range Interpretation Comments eGFR (test code = eGFR) [address] [facility] [employer] YTQOI3798-09-75 10:25:00 Test Item Value Reference Range Interpretation Comments Bili Total (test code = Bili Total) 0.6 0.2-1.[address] [facility] [employer] OGXBA2012-18-61 10:25:00 Test Item Value Reference Range Interpretation Comments Albumin Lvl (test code = Albumin Lvl) 3.1 3.5-5.0 [facility]2015-11-18 10:25:00 Test Item Value Reference Range Interpretation Comments Calcium Lvl (test code = Calcium Lvl) 9.0 8.5-10.5 [facility]2015-11-18 10:25:00 Test Item Value Reference Range Interpretation Comments Total Protein (test code = Total 6.3 6.4-8.4 Protein) [facility]2015-11-18 10:25:00 Test Item Value Reference Range Interpretation Comments AST (test code = AST) 14 See_Comment [Auto mated message] The system which ge nerated this result transmit marcelle reference range : <=37. The reference range was not used to interpr et this result as aranza l/abnormal. [facility]2015-11-18 10:25:00 Test Item Value Reference Range Interpretation Comments Alk Phos (test code = Alk Phos) 89 39-136 [facility]2015-11-18 10:25:00 Test Item Value Reference Range Interpretation Comments ALT (test code = ALT) 19 See_Comment [Auto mated message] The system which ge nerated this result transmit marcelle reference range : <=65. The reference range was not used to interpr et this result as aranza l/abnormal. [facility]2015-11-18 10:25:00 Test Item Value Reference Range Interpretation Comments CO2 (test code = CO2) 25 24-32 [facility]2015-11-18 10:25:00 Test Item Value Reference Range Interpretation Comments Potassium Lvl (test code = Potassium 4.2 3.5-5.1 Lvl) [facility]2015-11-18 10:25:00 Test Item Value Reference Range Interpretation Comments Chloride Lvl (test code = Chloride Lvl) 108 95-109 [facility]2015-11-18 10:25:00 Test Item Value Reference Range Interpretation Comments BUN (test code = BUN) 14 7-22 [facility]2015-11-18 10:25:00 Test Item Value Reference Range Interpretation Comments Creatinine Lvl (test code = Creatinine 0.70 0.50-1.40 Lvl) [facility]2015-11-18 10:25:00 Test Item Value Reference Range Interpretation Comments Sodium Lvl (test code = Sodium Lvl) 139 135-145 [facility]2015-11-18 10:25:00 Test Item Value Reference Range Interpretation Comments Glucose Lvl (test code = Glucose Lvl) 78 70-99 [facility]2015-11-18 10:25:00 Test Item Value Reference Range Interpretation Comments B/C Ratio (test code = B/C Ratio) 20 6-25 [facility]2015-11-18 10:25:00 Test Item Value Reference Range Interpretation Comments AGAP (test code = AGAP) 10.2 10.0-20.0 [facility]2015-11-18 10:25:00 Test Item Value Reference Range Interpretation Comments A/G Ratio (test code = A/G Ratio) 1.0 0.7-1.6 [facility]2015-11-18 10:25:00 Test Item Value Reference Range Interpretation Comments Globulin (test code = Globulin) 3.2 2.0-4.0 [facility] AliceXrbdcorKLJQBCURNJ4095-75-22 10:25:00 Test Item Value Reference Range Interpretation Comments MPV (test code = MPV) 8.6 7.4-10.4 [facility] AliceNhbeaquMZQSJCMTSX9606-81-40 10:25:00 Test Item Value Reference Range Interpretation Comments Platelet (test code = Platelet) 166 133-450 [facility] AliceUcfkojpSPEQPLZJLT0880-69-09 10:25:00 Test Item Value Reference Range Interpretation Comments RDW (test code = RDW) 14.3 11.5-14.5 [facility] AliceUqkrjwtTIEFEQVTBW2687-23-07 10:25:00 Test Item Value Reference Range Interpretation Comments RBC (test code = RBC) 4.53 4.20-5.40 [facility] AliceRljcdcyGFDKWEIBQO8524-24-95 10:25:00 Test Item Value Reference Range Interpretation Comments WBC (test code = WBC) 5.5 3.7-10.4 [facility] AliceBbciddpMVFPHMEKGJ3286-95-95 10:25:00 Test Item Value Reference Range Interpretation Comments MCH (test code = MCH) 27.9 pg 27.0-31.0 [facility] AliceFwdtefvSNYJXOWUMT9747-58-37 10:25:00 Test Item Value Reference Range Interpretation Comments MCHC (test code = MCHC) 31.5 32.0-36.0 [facility] AliceIetnxuxZMZXRKMXLX3638-79-38 10:25:00 Test Item Value Reference Range Interpretation Comments MCV (test code = MCV) 88.6 80.0-98.0 [facility] AliceYrohrihEVATXVNNPS0365-42-46 10:25:00 Test Item Value Reference Range Interpretation Comments Hct (test code = Hct) 40.2 36.0-48.0 [facility] AliceHsikkooTBFBUYWGZN8267-44-09 10:25:00 Test Item Value Reference Range Interpretation Comments Hgb (test code = Hgb) 12.6 12.0-16.0 [facility] AliceEnmhytxVZZFCMFAZX1326-69-62 10:25:00 Test Item Value Reference Range Interpretation Comments Eosinophils # (test code 0.2 See_Comment [A utomated message] The = Eosinophils #) system whic h generated this result tra nsmitted reference range : <=0.5. The reference r melody was not used to int erpret this result as normal/abnormal . [facility] AliceBzinauxRGTZRFKGOE0078-10-69 10:25:00 Test Item Value Reference Range Interpretation Comments Lymphocytes # (test code = Lymphocytes 2.0 1.0-5.5 #) [facility] AliceGhcjwhjKZHHKIQNXZ1186-50-39 10:25:00 Test Item Value Reference Range Interpretation Comments Basophils (test code = 0.9 See_Comment [Aut omated message] The Basophils) system which ge nerated this result tra nsmitted reference range : <=1.0. The reference r melody was not used to int erpret this result as normal/abnormal . [facility] AliceNrpifanMSOOGAENLN6785-15-69 10:25:00 Test Item Value Reference Range Interpretation Comments Monocytes # (test code 0.6 See_Comment [Aut omated message] The = Monocytes #) system which generated this result tra nsmitted reference range : <=0.8. The reference r melody was not used to int erpret this result as normal/abnormal . [facility] AliceUnnjgcvMMXGHTTPIB9328-89-84 10:25:00 Test Item Value Reference Range Interpretation Comments Segs-Bands # (test code = Segs-Bands #) 2.6 1.5-8.1 [facility] AliceUwgejtfJBKHRTCTMC3029-95-68 10:25:00 Test Item Value Reference Range Interpretation Comments Monocytes (test code = Monocytes) 11.0 2.0-12.0 [facility] AliceLobeasnUKUHRMBZQJ1557-23-40 10:25:00 Test Item Value Reference Range Interpretation Comments Eosinophils (test code = 4.0 See_Comment [A utomated message] The Eosinophils) system which ge nerated this result tra nsmitted reference range : <=4.0. The reference r melody was not used to int erpret this result as normal/abnormal . [facility]neYfqcecuNCWHVTBHIS0400-83-19 10:25:00 Test Item Value Reference Range Interpretation Comments Lymphocytes (test code = Lymphocytes) 36.1 20.0-40.0 [facility] CleburneAtmbnjxLKUVAYITZO9255-83-00 10:25:00 Test Item Value Reference Range Interpretation Comments Segs (test code = Segs) 48.0 45.0-75.0 [facility] CleburneJbbypoxQOHGTAFAPB5813-86-28 10:25:00 Test Item Value Reference Range Interpretation Comments Basophils # (test code 0.1 See_Comment [Aut omated message] The = Basophils #) system which generated this result tra nsmitted reference range : <=0.2. The reference r melody was not used to int erpret this result as normal/abnormal . [facility] [employer]2015-11-18 04:22:00 Test Item Value Reference Range Interpretation Comments Troponin-I (test code no gt See_Comment [Auto mated message] The = Troponin-I) system which g enerated this result transmit marcelle reference range : <=0.40. The reference r melody was not used to interpr et this result as aranza l/abnormal. [facility] [employer]2015-11-18 04:22:00 Test Item Value Reference Range Interpretation Comments Total CK (test code = Total CK) 88 12-191 [facility]neF[facility]2015-11-18 04:22:00 Test Item Value Reference Range Interpretation Comments CK MB Index (test 1.1 See_Comment [Automate d message] The code = CK MB Index) system [facility] generated this result transmit marcelle reference range : <=2.5. The reference range was not used to interpr et this result as aranza l/abnormal. [facility] [employer]2015-11-18 04:22:00 Test Item Value Reference Range Interpretation Comments CK MB (test code = CK MB) 1.0 0.5-3.6 [employer] [id number] 21:33:00 Test Item Value Reference Range Interpretation Comments Troponin-I (test code no gt See_Comment [Auto mated message] The = Troponin-I) system which g enerated this result transmit marcelle reference range : <=0.40. The reference r melody was not used to interpr et this result as aranza l/abnormal. [facility] [employer] [id number] 21:33:00 Test Item Value Reference Range Interpretation Comments CK MB (test code = CK MB) 1.2 0.5-3.[address] [facility] [employer] [id number] 21:33:00 Test Item Value Reference Range Interpretation Comments Total CK (test code = Total CK) 103 12-[address] [facility] [employer]2015-11-17 21:33:00 Test Item Value Reference Range Interpretation Comments CK MB Index (test 1.2 See_Comment [Automate d message] The code = CK MB Index) system [facility] generated this result transmit marcelle reference range : <=2.5. The reference range was not used to interpr et this result as aranza l/abnormal. [employer] [id number] 21:33:00 Test Item Value Reference Range Interpretation Comments eGFR (test code = eGFR) [address] [facility] [employer] [id number] 21:33:00 Test Item Value Reference Range Interpretation Comments Alk Phos (test code = Alk Phos) 91 39-[address] [facility] [employer] [id number] 21:33:00 Test Item Value Reference Range Interpretation Comments AST (test code = AST) 19 See_Comment [Auto mated message] The system which ge nerated this result transmit marcelle reference range : <=37. The reference range was not used to interpr et this result as aranza l/abnormal. [employer]2015-11-17 21:33:00 Test Item Value Reference Range Interpretation Comments ALT (test code = ALT) 17 See_Comment [Auto mated message] The system which ge nerated this result transmit marcelle reference range : <=65. The reference range was not used to interpr et this result as aranza l/abnormal. [employer]2015-11-17 21:33:00 Test Item Value Reference Range Interpretation Comments B/C Ratio (test code = B/C Ratio) 12 6-25 [facility]2015-11-17 21:33:00 Test Item Value Reference Range Interpretation Comments Bili Total (test code = Bili Total) 0.8 0.2-1.3 [facility]2015-11-17 21:33:00 Test Item Value Reference Range Interpretation Comments AGAP (test code = AGAP) 11.1 10.0-20.0 [facility]2015-11-17 21:33:00 Test Item Value Reference Range Interpretation Comments Albumin Lvl (test code = Albumin Lvl) 3.5 3.5-5.0 [facility]2015-11-17 21:33:00 Test Item Value Reference Range Interpretation Comments CO2 (test code = CO2) [facility]2015-11-17 21:33:00 Test Item Value Reference Range Interpretation Comments Total Protein (test code = Total 6.8 6.4-8.4 Protein) [facility]2015-11-17 21:33:00 Test Item Value Reference Range Interpretation Comments Calcium Lvl (test code = Calcium Lvl) 8.7 8.5-10.5 [facility]2015-11-17 21:33:00 Test Item Value Reference Range Interpretation Comments Globulin (test code = Globulin) 3.3 2.0-4.0 [facility]2015-11-17 21:33:00 Test Item Value Reference Range Interpretation Comments A/G Ratio (test code = A/G Ratio) 1.1 0.7-1.6 [facility]2015-11-17 21:33:00 Test Item Value Reference Range Interpretation Comments Creatinine Lvl (test code = Creatinine 0.80 0.50-1.40 Lvl) [facility]2015-11-17 21:33:00 Test Item Value Reference Range Interpretation Comments Chloride Lvl (test code = Chloride Lvl) 104 95-109 [facility]2015-11-17 21:33:00 Test Item Value Reference Range Interpretation Comments Sodium Lvl (test code = Sodium Lvl) 138 135-145 [facility]2015-11-17 21:33:00 Test Item Value Reference Range Interpretation Comments Potassium Lvl (test code = Potassium 4.1 3.5-5.1 Lvl) [facility]2015-11-17 21:33:00 Test Item Value Reference Range Interpretation Comments BUN (test code = BUN) 10 7-22 [facility]2015-11-17 21:33:00 Test Item Value Reference Range Interpretation Comments Glucose Lvl (test code = Glucose Lvl) 72 70-99 [facility]wvqkghAOSPXRJQWI0313[facility]86-77 21:33:00 Test Item Value Reference Range Interpretation Comments Segs-Bands # (test code = Segs-Bands #) 3.3 1.5-8.1 [facility] AliceElvqhvvRUIFDGMXYL2844-89-07 21:33:00 Test Item Value Reference Range Interpretation Comments Eosinophils # (test code 0.2 See_Comment [A utomated message] The = Eosinophils #) system whic h generated this result tra nsmitted reference range : <=0.5. The reference r melody was not used to int erpret this result as normal/abnormal . [facility] AliceRwoljouKRQVAHCWON7515-61-48 21:33:00 Test Item Value Reference Range Interpretation Comments Monocytes # (test code 0.6 See_Comment [Aut omated message] The = Monocytes #) system which generated this result tra nsmitted reference range : <=0.8. The reference r melody was not used to int erpret this result as normal/abnormal . [facility] AliceJdttjqoIUTBVJNGRR3845-92-24 21:33:00 Test Item Value Reference Range Interpretation Comments Lymphocytes # (test code = Lymphocytes 2.3 1.0-5.5 #) [facility] AliceLznnghiCCMZUQXKWV5866-08-32 21:33:00 Test Item Value Reference Range Interpretation Comments Segs (test code = Segs) 51.8 45.0-75.0 [place] 735555-11-17 21:33:00 Test Item Value Reference Range Interpretation Comments Basophils (test code = 0.6 See_Comment [Aut omated message] The Basophils) system which ge nerated this result tra nsmitted reference range : <=1.0. The reference r melody was not used to int erpret this result as normal/abnormal . [facility] AliceEtyssnjKYBDMRLHZC8477-10-69 21:33:00 Test Item Value Reference Range Interpretation Comments Eosinophils (test code = 3.1 See_Comment [A utomated message] The Eosinophils) system which ge nerated this result tra nsmitted reference range : <=4.0. The reference r melody was not used to int erpret this result as normal/abnormal . [facility] AliceHakxkxeWLMTOPSIKG9321-18-61 21:33:00 Test Item Value Reference Range Interpretation Comments Monocytes (test code = Monocytes) 9.4 2.0-12.0 [facility] AliceSszoyjsEBKSWEJASV4334-94-31 21:33:00 Test Item Value Reference Range Interpretation Comments Lymphocytes (test code = Lymphocytes) 35.1 20.0-40.0 [facility] AliceRxkashwKTYCBZOTHF1776-10-22 21:33:00 Test Item Value Reference Range Interpretation Comments Basophils # (test code 0.0 See_Comment [Aut omated message] The = Basophils #) system which generated this result tra nsmitted reference range : <=0.2. The reference r melody was not used to int erpret this result as normal/abnormal . [facility] AliceOylsrucXZGVBXIPTF0665-19-39 21:33:00 Test Item Value Reference Range Interpretation Comments MPV (test code = MPV) 9.1 7.4-10.4 [facility] AliceOrduqbhCMLANSJMOL5011-43-80 21:33:00 Test Item Value Reference Range Interpretation Comments MCV (test code = MCV) 87.6 80.0-98.0 [facility] AliceXsmykfsEDYWAGQYKR3166-58-89 21:33:00 Test Item Value Reference Range Interpretation Comments Hgb (test code = Hgb) 12.9 12.0-16.0 [facility] AliceRbbzwfaLIRWNCYRRB9305-06-85 21:33:00 Test Item Value Reference Range Interpretation Comments Hct (test code = Hct) 39.8 36.0-48.0 [facility] AliceJqxskrwLXKAZZPIVI8262-08-40 21:33:00 Test Item Value Reference Range Interpretation Comments MCHC (test code = MCHC) 32.3 32.0-36.0 [facility] AliceZjsxorrABKASPSULD6377-00-99 21:33:00 Test Item Value Reference Range Interpretation Comments RDW (test code = RDW) 14.8 11.5-14.5 [facility] AliceTmyzzwePIIVGLPNXA6715-66-16 21:33:00 Test Item Value Reference Range Interpretation Comments MCH (test code = MCH) 28.3 pg 27.0-31.0 [facility] AliceVzjxtycWLEEVCVSGE1991-77-09 21:33:00 Test Item Value Reference Range Interpretation Comments Platelet (test code = Platelet) 171 133-450 [facility]ntwkvfCHRVPYVGFN9313-[facility]-47 21:33:00 Test Item Value Reference Range Interpretation Comments RBC (test code = RBC) 4.54 4.20-5.40 [facility] TylerMgdmeunTYVDBSRQGT4140-07-62 21:33:00 Test Item Value Reference Range Interpretation Comments WBC (test code = WBC) 6.4 3.7-10.4 [facility]XcdipthFBEOTFIACZ1681-62-61 19:18:00 Test Item Value Reference Range Interpretation Comments CDC HIV 4th GEN (test Negative (05/18/15 2:18 code = CDC HIV 4th PM) GEN) [facility] BXHQPCA1333-79-06 18:26:00 Test Item Value Reference Range Interpretation Comments Troponin-I (test code no gt See_Comment [Auto mated message] The = Troponin-I) system which g enerated this result transmit marcelle reference range : <=0.40. The reference r melody was not used to interpr et this result as aranza l/abnormal. [facility]neAppTweak.[facility] CWPNV6793-07-60 18:26:00 Test Item Value Reference Range Interpretation Comments Bili Direct (test code 0.1 See_Comment [Aut omated message] The = Bili Direct) system which generated this result tra nsmitted reference range : <=0.3. The reference r melody was not used to int erpret this result as aranza l/abnormal. [facility]neAppT[facility] KNGWV8504-38-33 18:26:00 Test Item Value Reference Range Interpretation Comments Globulin (test code = Globulin) 3.9 2.0-4.0 [facility]neAppT[facility] RRHPI7198-45-71 18:26:00 Test Item Value Reference Range Interpretation Comments Alk Phos (test code = Alk Phos) 105 39-136 [facility]AppT[facility] FGBZY1079-80-45 18:26:00 Test Item Value Reference Range Interpretation Comments Bili Total (test code = Bili Total) 0.5 0.2-1.3 [facility] QQLXG4905-96-01 18:26:00 Test Item Value Reference Range Interpretation Comments AST (test code = AST) 22 See_Comment [Auto mated message] The system which ge nerated this result transmit marcelle reference range : <=37. The reference range was not used to interpr et this result as aranza l/abnormal. [facility]2015-09-20 18:26:00 Test Item Value Reference Range Interpretation Comments ALT (test code = ALT) 18 See_Comment [Auto mated message] The system which ge nerated this result transmit marcelle reference range : <=65. The reference range was not used to interpr et this result as aranza l/abnormal. [facility]2015-09-20 18:26:00 Test Item Value Reference Range Interpretation Comments Total Protein (test code = Total 7.9 6.4-8.4 Protein) [facility]2015-09-20 18:26:00 Test Item Value Reference Range Interpretation Comments Albumin Lvl (test code = Albumin Lvl) 4.0 3.5-5.0 [facility]2015-09-20 18:26:00 Test Item Value Reference Range Interpretation Comments Bili Indirect (test 0.4 See_Comment [Automa marcelle message] The code = Bili Indirect) system which generated this result tra nsmitted reference range : <=1.0. The reference r melody was not used to int erpret this result as normal/abnormal . [facility]2015-09-20 18:26:00 Test Item Value Reference Range Interpretation Comments A/G Ratio (test code = A/G Ratio) 1.0 0.7-1.6 [facility]2015-09-20 18:26:00 Test Item Value Reference Range Interpretation Comments Lipase Lvl (test code = Lipase Lvl) 266 73-393 [facility]2015-09-20 18:26:00 Test Item Value Reference Range Interpretation Comments eGFR (test code = eGFR) 78 [facility]2015-09-20 18:26:00 Test Item Value Reference Range Interpretation Comments Sodium Lvl (test code = Sodium Lvl) 138 135-145 [facility]2015-09-20 18:26:00 Test Item Value Reference Range Interpretation Comments Potassium Lvl (test code = Potassium 3.9 3.5-5.1 Lvl) [facility]2015-09-20 18:26:00 Test Item Value Reference Range Interpretation Comments Creatinine Lvl (test code = Creatinine 0.9 0.5-1.4 Lvl) [facility]2015-09-20 18:26:00 Test Item Value Reference Range Interpretation Comments Glucose Lvl (test code = Glucose Lvl) 87 70-99 [facility]2015-09-20 18:26:00 Test Item Value Reference Range Interpretation Comments BUN (test code = BUN) 7 7-22 [facility]2015-09-20 18:26:00 Test Item Value Reference Range Interpretation Comments Chloride Lvl (test code = Chloride Lvl) 103 95-109 [facility]2015-09-20 18:26:00 Test Item Value Reference Range Interpretation Comments CO2 (test code = CO2) 28 24-32 [facility]2015-09-20 18:26:00 Test Item Value Reference Range Interpretation Comments Calcium Lvl (test code = Calcium Lvl) 10.2 8.5-10.5 [facility]2015-09-20 18:26:00 Test Item Value Reference Range Interpretation Comments AGAP (test code = AGAP) 10.9 10.0-20.0 [facility] AliceRmwuyawDWNIIATAPJ9527-59-10 18:26:00 Test Item Value Reference Range Interpretation Comments Hgb (test code = Hgb) 14.2 12.0-16.0 [facility] AliceFpmcmagQCIROLUDQK5901-39-85 18:26:00 Test Item Value Reference Range Interpretation Comments RBC (test code = RBC) 4.96 4.20-5.40 [facility] AliceWukrnkrZXYJJJHLGY1007-91-38 18:26:00 Test Item Value Reference Range Interpretation Comments MCH (test code = MCH) 28.7 pg 27.0-31.0 [facility] AliceDjhrtzrGEAQVNLDGH9286-29-60 18:26:00 Test Item Value Reference Range Interpretation Comments MCHC (test code = MCHC) 32.9 32.0-36.0 [facility] AliceTjnnnsvXIDMTWVTJI6965-80-87 18:26:00 Test Item Value Reference Range Interpretation Comments Hct (test code = Hct) 43.3 36.0-48.0 [facility] AliceMlbbhfuXRLLPBJSXA8573-66-08 18:26:00 Test Item Value Reference Range Interpretation Comments MCV (test code = MCV) 87.2 80.0-98.0 [facility] AliceBemiwwwFKLAJASSPY8995-49-47 18:26:00 Test Item Value Reference Range Interpretation Comments WBC (test code = WBC) 6.8 3.7-10.4 [facility] AlicePsmwhvtCZNSNHYJYS0499-16-71 18:26:00 Test Item Value Reference Range Interpretation Comments Platelet (test code = Platelet) 215 133-450 [facility] AliceOaeydomEITUNMKNEZ7671-99-43 18:26:00 Test Item Value Reference Range Interpretation Comments MPV (test code = MPV) 8.2 7.4-10.4 [facility] AliceZitesetKSEXPMEZEE4910-72-60 18:26:00 Test Item Value Reference Range Interpretation Comments RDW (test code = RDW) 14.5 11.5-14.5 [facility] AliceEaqrnvyZLMUTNOQJM2324-05-26 18:26:00 Test Item Value Reference Range Interpretation Comments Segs (test code = Segs) 55.6 45.0-75.0 [facility] AliceUmdcoysWTTQVHRHBM8278-49-86 18:26:00 Test Item Value Reference Range Interpretation Comments Lymphocytes (test code = Lymphocytes) 32.7 20.0-40.0 [facility] AliceDjpdbcdEPSMQMQSNF4596-30-19 18:26:00 Test Item Value Reference Range Interpretation Comments Monocytes (test code = Monocytes) 8.5 2.0-12.0 [facility] AliceEomvtkgWKABARZCPI8686-61-58 18:26:00 Test Item Value Reference Range Interpretation Comments Segs-Bands # (test code = Segs-Bands #) 3.8 1.5-8.1 [facility] AliceBvoyisdFAZWQPWQYA6181-04-09 18:26:00 Test Item Value Reference Range Interpretation Comments Basophils (test code = 0.6 See_Comment [Aut omated message] The Basophils) system which ge nerated this result tra nsmitted reference range : <=1.0. The reference r melody was not used to int erpret this result as normal/abnormal . [facility] AliceVfguesrSXLCINHJOG1764-16-19 18:26:00 Test Item Value Reference Range Interpretation Comments Lymphocytes # (test code = Lymphocytes 2.2 1.0-5.5 #) [facility] AliceKwzcoglZNOIHETATX7893-14-71 18:26:00 Test Item Value Reference Range Interpretation Comments Eosinophils (test code = 2.6 See_Comment [A utomated message] The Eosinophils) system which ge nerated this result tra nsmitted reference range : <=4.0. The reference r melody was not used to int erpret this result as normal/abnormal . [facility]DusddokXAQMDYLMGG3227-69-72 18:26:00 Test Item Value Reference Range Interpretation Comments Eosinophils # (test code 0.2 See_Comment [A utomated message] The = Eosinophils #) system whic h generated this result tra nsmitted reference range : <=0.5. The reference r meloyd was not used to int erpret this result as normal/abnormal . [facility]KMUWANBFW[facility]84-[facility] 18:26:00 Test Item Value Reference Range Interpretation Comments Monocytes # (test code 0.6 See_Comment [Aut omated message] The = Monocytes #) system which generated this result tra nsmitted reference range : <=0.8. The reference r melody was not used to int erpret this result as normal/abnormal . [facility] TylerLnaiecvOZVTMLMSFU0857-86-28 18:26:00 Test Item Value Reference Range Interpretation Comments [place]-Hep C Ab (test Positive *NA*(05/18/15 code = [place]-Hep C 1:26 PM) Ab) [facility] TylerBgsgnbwZQTPUVHYHM5093-00-98 18:26:00 Test Item Value Reference Range Interpretation Comments [place] HCV RNA Virload (test code = 153849 [place] HCV RNA Virload) [facility]LwugpbbGWUQKVXKLK3949-20-19 18:26:00 Test Item Value Reference Range Interpretation Comments [place] HCV RNA Log10 (test code = 5.5 [place] HCV RNA Log10) [facility] CGOLJBP9240-48-36 18:51:00 Test Item Value Reference Range Interpretation Comments Troponin-I (test code no gt See_Comment [Auto mated message] The = Troponin-I) system which g enerated this result transmit marcelle reference range : <=0.40. The reference r melody was not used to interpr et this result as aranza l/abnormal. [facility] Cle[facility]neCHF TechnologiesCHEM XQDNX6064-70-20 18:51:00 Test Item Value Reference Range Interpretation Comments eGFR (test code = eGFR) 90 [facility] ZFMUV3467-79-92 18:51:00 Test Item Value Reference Range Interpretation Comments CO2 (test code = CO2) 28 24-32 [facility] Cle[facility]neAppTweak.com WVHRR7320-75-98 18:51:00 Test Item Value Reference Range Interpretation Comments Calcium Lvl (test code = Calcium Lvl) 9.6 8.5-10.5 [facility]2015-09-11 18:51:00 Test Item Value Reference Range Interpretation Comments Chloride Lvl (test code = Chloride Lvl) 105 95-109 [facility]2015-09-11 18:51:00 Test Item Value Reference Range Interpretation Comments Creatinine Lvl (test code = Creatinine 0.8 0.5-1.4 Lvl) [facility]2015-09-11 18:51:00 Test Item Value Reference Range Interpretation Comments Sodium Lvl (test code = Sodium Lvl) 139 135-145 [facility]2015-09-11 18:51:00 Test Item Value Reference Range Interpretation Comments Potassium Lvl (test code = Potassium 3.7 3.5-5.1 Lvl) [facility]2015-09-11 18:51:00 Test Item Value Reference Range Interpretation Comments Glucose Lvl (test code = Glucose Lvl) 102 70-99 [facility]2015-09-11 18:51:00 Test Item Value Reference Range Interpretation Comments BUN (test code = BUN) 7 7-22 [facility]2015-09-11 18:51:00 Test Item Value Reference Range Interpretation Comments AGAP (test code = AGAP) 9.7 10.0-20.0 [facility] AliceUxfgjmkQIEGSGPZKI6896-50-58 18:51:00 Test Item Value Reference Range Interpretation Comments RDW (test code = RDW) 14.4 11.5-14.5 [facility] AliceTwrhnknQBPHGXHATL0229-99-13 18:51:00 Test Item Value Reference Range Interpretation Comments MCHC (test code = MCHC) 32.5 32.0-36.0 [facility] AliceMwsdaabDDLJKSLDPX6439-52-51 18:51:00 Test Item Value Reference Range Interpretation Comments MCH (test code = MCH) 28.7 pg 27.0-31.0 [facility] AliceZvrbigyYULBRHGVVD8765-67-03 18:51:00 Test Item Value Reference Range Interpretation Comments Platelet (test code = Platelet) 202 133-450 [facility] AliceZgztoxtOVNYPSWEYQ9706-40-48 18:51:00 Test Item Value Reference Range Interpretation Comments MPV (test code = MPV) 7.6 7.4-10.4 [place] 735555-09-11 18:51:00 Test Item Value Reference Range Interpretation Comments MCV (test code = MCV) 88.2 80.0-98.0 [facility] AliceOewsanvIFTOSHLDTI3888-12-91 18:51:00 Test Item Value Reference Range Interpretation Comments Hct (test code = Hct) 41.9 36.0-48.0 [facility] AliceNrzxiesWXJHHHWAYN1820-24-47 18:51:00 Test Item Value Reference Range Interpretation Comments RBC (test code = RBC) 4.75 4.20-5.40 [facility] AliceWfitpltJUUHDUKCTL0739-80-09 18:51:00 Test Item Value Reference Range Interpretation Comments Hgb (test code = Hgb) 13.6 12.0-16.0 [facility] AliceXziuaehVXHWTMUJPG1172-67-41 18:51:00 Test Item Value Reference Range Interpretation Comments WBC (test code = WBC) 5.6 3.7-10.4 [facility] AliceMbvyywbOYGIXHFYFP8230-26-43 18:51:00 Test Item Value Reference Range Interpretation Comments Lymphocytes # (test code = Lymphocytes 2.1 1.0-5.5 #) [facility] AliceVfrkoslYAMKHJSENM5707-80-23 18:51:00 Test Item Value Reference Range Interpretation Comments Basophils # (test code 0.1 See_Comment [Aut omated message] The = Basophils #) system which generated this result tra nsmitted reference range : <=0.2. The reference r melody was not used to int erpret this result as normal/abnormal . [facility] AliceZkhrrslTCUWEPPHOG9153-90-66 18:51:00 Test Item Value Reference Range Interpretation Comments Eosinophils # (test code 0.2 See_Comment [A utomated message] The = Eosinophils #) system whic h generated this result tra nsmitted reference range : <=0.5. The reference r melody was not used to int erpret this result as normal/abnormal . [facility] AliceLyiihriIBMGHPSDDO0299-47-53 18:51:00 Test Item Value Reference Range Interpretation Comments Monocytes # (test code 0.4 See_Comment [Aut omated message] The = Monocytes #) system which generated this result tra nsmitted reference range : <=0.8. The reference r melody was not used to int erpret this result as normal/abnormal . [facility] AliceZdtcsizSCEOHLDUHE1851-76-05 18:51:00 Test Item Value Reference Range Interpretation Comments Segs (test code = Segs) 50.8 45.0-75.0 [facility]RpujmovMYMPBBPEDD4243-26-18 18:51:00 Test Item Value Reference Range Interpretation Comments Eosinophils (test code = 2.8 See_Comment [A utomated message] The Eosinophils) system which ge nerated this result tra nsmitted reference range : <=4.0. The reference r melody was not used to int erpret this result as normal/abnormal . [facility]PdxtqzsWHNRJUZDAY1687-90-55 18:51:00 Test Item Value Reference Range Interpretation Comments Segs-Bands # (test code = Segs-Bands #) 2.9 1.5-8.1 [facility] AliceAdsjcfaJQRRUZLWOO9259-37-09 18:51:00 Test Item Value Reference Range Interpretation Comments Basophils (test code = 1.1 See_Comment [Aut omated message] The Basophils) system which ge nerated this result tra nsmitted reference range : <=1.0. The reference r melody was not used to int erpret this result as normal/abnormal . [facility] HospitalSayuqmzZNVPEDZZBT3736-15-12 18:51:00 Test Item Value Reference Range Interpretation Comments Monocytes (test code = Monocytes) 7.7 2.0-12.0 [facility] HospitalNupyfjtEUETWHFOFK7724-59-63 18:51:00 Test Item Value Reference Range Interpretation Comments Lymphocytes (test code = Lymphocytes) 37.6 20.0-40.0 [facility] HSBTSID1812-49-58 22:03:00 Test Item Value Reference Range Interpretation Comments Troponin-I (test code no gt See_Comment [Auto mated message] The = Troponin-I) system which g enerated this result transmit marcelle reference range : <=0.40. The reference r melody was not used to interpr et this result as aranza l/abnormal. [facility] TylerCHE[facility] KCBBE3468-34-49 22:03:00 Test Item Value Reference Range Interpretation Comments Phosphorus (test code = Phosphorus) 3.2 2.5-4.5 [facility]CHE[facility] AECZV5690-68-35 22:03:00 Test Item Value Reference Range Interpretation Comments Magnesium Lvl (test code = Magnesium 2.1 1.8-2.4 Lvl) [facility]neMfiuizjMLLGVAGRAYSM7324-91-29 22:03:00 Test Item Value Reference Range Interpretation Comments AGAP (test code = AGAP) 12.4 10.0-20.0 [facility]XxlkjyfDMFKQWZPUAIZ4985-33-16 22:03:00 Test Item Value Reference Range Interpretation Comments eGFR (test code = eGFR) 68 [facility] HospitalBuuwilmHIDYHNTOAWKO2805-66-38 22:03:00 Test Item Value Reference Range Interpretation Comments Chloride Lvl (test code = Chloride Lvl) 104 95-109 [facility] HospitalLnskvwmSFRJRBTHTUZE8722-11-75 22:03:00 Test Item Value Reference Range Interpretation Comments Sodium Lvl (test code = Sodium Lvl) 141 135-145 [facility] HospitalCyozcesFKUYWHUXWMKC1396-60-72 22:03:00 Test Item Value Reference Range Interpretation Comments CO2 (test code = CO2) 28 24-32 [facility] HospitalUvelmscVTUFEDKYXVKX8467-93-28 22:03:00 Test Item Value Reference Range Interpretation Comments Calcium Lvl (test code = Calcium Lvl) 8.8 8.5-10.5 [facility] HospitalOujfeysDSLLCGDEKAGT0087-22-33 22:03:00 Test Item Value Reference Range Interpretation Comments Potassium Lvl (test code = Potassium 3.4 3.5-5.1 Lvl) [facility] HospitalYzixhivMNFUVPQYDKAL7396-07-30 22:03:00 Test Item Value Reference Range Interpretation Comments Creatinine Lvl (test code = Creatinine 0.9 0.5-1.4 Lvl) [facility] HospitalLsznvfwOKWEMBNFFMDE5840-72-30 22:03:00 Test Item Value Reference Range Interpretation Comments Glucose Lvl (test code = Glucose Lvl) 92 70-99 [facility] HospitalXajasgeOBFWWSITABLR7284-92-26 22:03:00 Test Item Value Reference Range Interpretation Comments BUN (test code = BUN) 6 7-22 [facility] AlicePpcaattLCYFHILOUE1475-70-61 22:03:00 Test Item Value Reference Range Interpretation Comments MPV (test code = MPV) 8.0 7.4-10.4 [facility] AlicePnlwerqZUOEOHNICF7670-00-03 22:03:00 Test Item Value Reference Range Interpretation Comments RDW (test code = RDW) 14.1 11.5-14.5 [facility] AliceLrmiwjnDTVTEVBEWR5410-97-50 22:03:00 Test Item Value Reference Range Interpretation Comments Platelet (test code = Platelet) 212 133-450 [facility] AliceBdmbyixOEBHOOPQCB9494-92-15 22:03:00 Test Item Value Reference Range Interpretation Comments MCHC (test code = MCHC) 32.6 32.0-36.0 [facility] AliceEuhakqdZKUKYGLMKR1511-69-41 22:03:00 Test Item Value Reference Range Interpretation Comments WBC (test code = WBC) 8.0 3.7-10.4 [facility] AliceAfuwcibJIVMGXWBJQ5120-63-26 22:03:00 Test Item Value Reference Range Interpretation Comments Hct (test code = Hct) 40.2 36.0-48.0 [facility] AliceGjahkxpYZRYQGDENJ7913-58-38 22:03:00 Test Item Value Reference Range Interpretation Comments MCV (test code = MCV) 87.4 80.0-98.0 [facility] AliceYapcawoYSCIKAICMK6260-08-62 22:03:00 Test Item Value Reference Range Interpretation Comments Hgb (test code = Hgb) 13.1 12.0-16.0 [facility] AliceLdespzrYJNQBCADTE4495-16-46 22:03:00 Test Item Value Reference Range Interpretation Comments RBC (test code = RBC) 4.60 4.20-5.40 [facility] AliceVcpusprFDMABYJPYE9661-12-97 22:03:00 Test Item Value Reference Range Interpretation Comments MCH (test code = MCH) 28.5 pg 27.0-31.0 [facility] AliceJzuibrsMQLAJBNMMT5147-57-74 22:03:00 Test Item Value Reference Range Interpretation Comments Lymphocytes (test code = Lymphocytes) 26.3 20.0-40.0 [facility] AliceIamzwgrFUZPRSDHIP6878-55-39 22:03:00 Test Item Value Reference Range Interpretation Comments Segs (test code = Segs) 60.9 45.0-75.0 [facility] AliceLzrlgwcJKHKOTATHH0629-45-46 22:03:00 Test Item Value Reference Range Interpretation Comments Basophils (test code = 1.0 See_Comment [Aut omated message] The Basophils) system which ge nerated this result tra nsmitted reference range : <=1.0. The reference r melody was not used to int erpret this result as normal/abnormal . [facility]RQTSXJWZKK8955[facility]-54 22:03:00 Test Item Value Reference Range Interpretation Comments Eosinophils (test code = 3.0 See_Comment [A utomated message] The Eosinophils) system which ge nerated this result tra nsmitted reference range : <=4.0. The reference r melody was not used to int erpret this result as normal/abnormal . [facility] AliceXgotxjdVIDQLWBIOZ8588-44-93 22:03:00 Test Item Value Reference Range Interpretation Comments Monocytes (test code = Monocytes) 8.8 2.0-12.0 [facility] AliceBvwkovoJFETUXGYRU2957-72-01 22:03:00 Test Item Value Reference Range Interpretation Comments Monocytes # (test code 0.7 See_Comment [Aut omated message] The = Monocytes #) system which generated this result tra nsmitted reference range : <=0.8. The reference r melody was not used to int erpret this result as normal/abnormal . [facility] AliceXblnoroUOTOQQERYU9960-75-37 22:03:00 Test Item Value Reference Range Interpretation Comments Eosinophils # (test code 0.2 See_Comment [A utomated message] The = Eosinophils #) system whic h generated this result tra nsmitted reference range : <=0.5. The reference r melody was not used to int erpret this result as normal/abnormal . [facility] AliceOhotdzvYOUJOGFFXG5493-80-92 22:03:00 Test Item Value Reference Range Interpretation Comments Lymphocytes # (test code = Lymphocytes 2.1 1.0-5.5 #) [facility] AliceOupvcyaSZRMWWJMWQ6925-32-21 22:03:00 Test Item Value Reference Range Interpretation Comments Segs-Bands # (test code = Segs-Bands #) 4.9 1.5-8.1 [facility] AliceNwofzuhICYWATVQMV4587-52-41 22:03:00 Test Item Value Reference Range Interpretation Comments Basophils # (test code 0.1 See_Comment [Aut omated message] The = Basophils #) system which generated this result tra nsmitted reference range : <=0.2. The reference r melody was not used to int erpret this result as normal/abnormal . [facility]2015-09-04 21:38:00 Test Item Value Reference Range Interpretation Comments UA Nitrite (test code Negative (05/02/15 4:38 = UA Nitrite) PM) [facility] AND [id number] 21:38:00 Test Item Value Reference Range Interpretation Comments UA WBC (test code = UA WBC) 0-2 /HPF [facility]2015-09-04 21:38:00 Test Item Value Reference Range Interpretation Comments UA Leuk Est (test Moderate *ABN*(05/02/15 code = UA Leuk Est) 4:38 PM) [facility] AND [id number] 21:38:00 Test Item Value Reference Range Interpretation Comments UA RBC (test None Seen See_Comment [Automated [place]] code = UA RBC) (05/02/15 4:38 PM) The syste m which generated this result transmitted ref erence range: <=2. The reference range was not used to int erpret this result as normal/abnormal . [facility] AND [id number] 21:38:00 Test Item Value Reference Range Interpretation Comments UA Sq Epi (test code = UA Sq Occasional /LPF Epi) [facility] AND [id number] 21:38:00 Test Item Value Reference Range Interpretation Comments UA Bacteria (test code = None Seen (05/02/15 UA Bacteria) 4:38 PM) [facility] AND [id number] 21:38:00 Test Item Value Reference Range Interpretation Comments UA Mucus (test code = UA Mucus) Rare /LPF [facility] AND [id number] 21:38:00 Test Item Value Reference Range Interpretation Comments UA Glucose (test code Negative (05/02/15 4:38 = UA Glucose) PM) [facility] AND [id number] 21:38:00 Test Item Value Reference Range Interpretation Comments UA Ketones (test code Negative *NA*(05/02/15 = UA Ketones) 4:38 PM) [facility] AND [id number] 21:38:00 Test Item Value Reference Range Interpretation Comments UA Urobilinogen (test code = UA 0.2 0.1-1.0 Urobilinogen) [facility] AND [id number] 21:38:00 Test Item Value Reference Range Interpretation Comments UA Blood (test code = Negative (05/02/15 4:38 UA Blood) PM) [facility] AND [id number] 21:38:00 Test Item Value Reference Range Interpretation Comments UA Bili (test code = Negative *NA*(05/02/15 UA Bili) 4:38 PM) [facility] AND [id number] 21:38:00 Test Item Value Reference Range Interpretation Comments UA Color (test code = Yellow *NA*(05/02/15 4:38 UA Color) PM) [facility] AND [id number] 21:38:00 Test Item Value Reference Range Interpretation Comments UA pH (test code = UA pH) 6.0 1 5.0-8.0 [facility] AND [id number] 21:38:00 Test Item Value Reference Range Interpretation Comments UA Turbidity (test code Slight Cloudy (05/02/15 = UA Turbidity) 4:38 PM) [facility] AND [id number] 21:38:00 Test Item Value Reference Range Interpretation Comments UA Protein (test code Negative (05/02/15 4:38 = UA Protein) PM) [facility] AND [id number] 21:38:00 Test Item Value Reference Range Interpretation Comments UA Spec Grav (test code = UA Spec 1.006 1 Grav) [facility]2015-07-27 09:28:00 Test Item Value Reference Range Interpretation Comments Lipase Lvl (test code = Lipase Lvl) 188 73-393 [facility]2015-07-27 09:28:00 Test Item Value Reference Range Interpretation Comments eGFR (test code = eGFR) 106 [facility]2015-07-27 09:28:00 Test Item Value Reference Range Interpretation Comments Creatinine Lvl (test code = Creatinine 0.7 0.5-1.4 Lvl) [facility]2015-07-27 09:28:00 Test Item Value Reference Range Interpretation Comments BUN (test code = BUN) 4 7-22 [facility]2015-07-27 09:28:00 Test Item Value Reference Range Interpretation Comments Potassium Lvl (test code = Potassium 3.2 3.5-5.1 Lvl) [facility]2015-07-27 09:28:00 Test Item Value Reference Range Interpretation Comments Sodium Lvl (test code = Sodium Lvl) 142 135-145 [facility]2015-07-27 09:28:00 Test Item Value Reference Range Interpretation Comments Glucose Lvl (test code = Glucose Lvl) 91 70-99 [facility]2015-07-27 09:28:00 Test Item Value Reference Range Interpretation Comments Albumin Lvl (test code = Albumin Lvl) 3.5 3.5-5.0 [facility]2015-07-27 09:28:00 Test Item Value Reference Range Interpretation Comments Total Protein (test code = Total 6.6 6.4-8.4 Protein) [facility]2015-07-27 09:28:00 Test Item Value Reference Range Interpretation Comments Chloride Lvl (test code = Chloride Lvl) 107 95-109 [facility]2015-07-27 09:28:00 Test Item Value Reference Range Interpretation Comments Calcium Lvl (test code = Calcium Lvl) 9.1 8.5-10.5 [facility]2015-07-27 09:28:00 Test Item Value Reference Range Interpretation Comments CO2 (test code = CO2) 27 24-32 [place] 768425-07-27 09:28:00 Test Item Value Reference Range Interpretation Comments AGAP (test code = AGAP) 11.2 10.0-20.0 [facility]2015-07-27 09:28:00 Test Item Value Reference Range Interpretation Comments AST (test code = AST) 21 See_Comment [Auto mated message] The system which ge nerated this result transmit marcelle reference range : <=37. The reference range was not used to interpr et this result as aranza l/abnormal. [facility]2015-07-27 09:28:00 Test Item Value Reference Range Interpretation Comments ALT (test code = ALT) 34 See_Comment [Auto mated message] The system which ge nerated this result transmit marcelle reference range : <=65. The reference range was not used to interpr et this result as aranza l/abnormal. [facility]2015-07-27 09:28:00 Test Item Value Reference Range Interpretation Comments Bili Total (test code = Bili Total) 0.6 0.2-1.3 [facility]2015-07-27 09:28:00 Test Item Value Reference Range Interpretation Comments Alk Phos (test code = Alk Phos) 95 39-136 [facility]2015-07-27 09:28:00 Test Item Value Reference Range Interpretation Comments B/C Ratio (test code = B/C Ratio) 6 6-25 [facility]2015-07-27 09:28:00 Test Item Value Reference Range Interpretation Comments A/G Ratio (test code = A/G Ratio) 1.1 0.7-1.6 [facility]2015-07-27 09:28:00 Test Item Value Reference Range Interpretation Comments Globulin (test code = Globulin) 3.1 2.0-4.0 [facility] Ali[id number] 09:28:00 Test Item Value Reference Range Interpretation Comments Monocytes (test code = Monocytes) 11.3 2.0-12.0 [facility] AliceUlilcjdAZSITHOLSK2627-93-35 09:28:00 Test Item Value Reference Range Interpretation Comments Lymphocytes (test code = Lymphocytes) 27.1 20.0-40.0 [facility] AliceMjiwqueLVJOICWOSS3839-52-84 09:28:00 Test Item Value Reference Range Interpretation Comments Eosinophils (test code = 5.9 See_Comment [A utomated message] The Eosinophils) system which ge nerated this result tra nsmitted reference range : <=4.0. The reference r melody was not used to int erpret this result as normal/abnormal . [facility] AliceCfntcjvBQAZXZZEVW4056-04-84 09:28:00 Test Item Value Reference Range Interpretation Comments Segs-Bands # (test code = Segs-Bands #) 3.3 1.5-8.1 [facility] AlicePlghjjkCUUHVIXUSE2914-56-38 09:28:00 Test Item Value Reference Range Interpretation Comments Basophils (test code = 0.7 See_Comment [Aut omated message] The Basophils) system which ge nerated this result tra nsmitted reference range : <=1.0. The reference r melody was not used to int erpret this result as normal/abnormal . [facility] AliceHrvwublIWTKHDWEQW4022-28-40 09:28:00 Test Item Value Reference Range Interpretation Comments Segs (test code = Segs) 55.0 45.0-75.0 [facility] AliceXhoymugOVYRALBXBY3027-58-25 09:28:00 Test Item Value Reference Range Interpretation Comments Monocytes # (test code 0.7 See_Comment [Aut omated message] The = Monocytes #) system which generated this result tra nsmitted reference range : <=0.8. The reference r melody was not used to int erpret this result as normal/abnormal . [facility] AliceDhleovnWQEUKFCDEK2979-08-41 09:28:00 Test Item Value Reference Range Interpretation Comments Lymphocytes # (test code = Lymphocytes 1.6 1.0-5.5 #) [facility] AliceHelhpbvJLGCFOOKEX6536-12-62 09:28:00 Test Item Value Reference Range Interpretation Comments Eosinophils # (test code 0.4 See_Comment [A utomated message] The = Eosinophils #) system whic h generated this result tra nsmitted reference range : <=0.5. The reference r melody was not used to int erpret this result as normal/abnormal . [facility] AliceUklqguuUBKGZZIZLB8569-83-24 09:28:00 Test Item Value Reference Range Interpretation Comments RBC (test code = RBC) 4.21 4.20-5.40 [facility] AliceRzcswbeKFEBSFOEFB7934-55-83 09:28:00 Test Item Value Reference Range Interpretation Comments WBC (test code = WBC) 5.9 3.7-10.4 [facility] AliceQnngxdjUVVNLNXHQJ2872-58-35 09:28:00 Test Item Value Reference Range Interpretation Comments Platelet (test code = Platelet) 204 133-450 [facility] AliceWbdettmWXKNUMGOLK9217-64-42 09:28:00 Test Item Value Reference Range Interpretation Comments MCHC (test code = MCHC) 32.4 32.0-36.0 [facility] AliceRemhwgbFQCGBQURMZ0448-19-82 09:28:00 Test Item Value Reference Range Interpretation Comments RDW (test code = RDW) 14.2 11.5-14.5 [facility] AliceHuvjjtySTWJMZQQTU8781-28-12 09:28:00 Test Item Value Reference Range Interpretation Comments MPV (test code = MPV) 8.6 7.4-10.4 [facility] AliceXcuhjgxFEBFBPVFTJ9204-43-40 09:28:00 Test Item Value Reference Range Interpretation Comments Hct (test code = Hct) 37.2 36.0-48.0 [facility] AliceLfeifvvUTCBYCGHPZ2230-36-07 09:28:00 Test Item Value Reference Range Interpretation Comments MCV (test code = MCV) 88.3 80.0-98.0 [facility] AliceGjhedpaSBSEZSFGBQ7806-00-72 09:28:00 Test Item Value Reference Range Interpretation Comments Hgb (test code = Hgb) 12.1 12.0-16.0 [facility] AlicePteevhxDVJWRCOCRV2172-00-56 09:28:00 Test Item Value Reference Range Interpretation Comments MCH (test code = MCH) 28.6 pg 27.0-31.0 [facility]2015-07-26 18:14:00 Test Item Value Reference Range Interpretation Comments Occult Bld Stl (test Negative (03/23/15 1:14 code = Occult Bld Stl) PM) [facility] AliceNdnzjwzYNEZIDTBDY0756-68-84 10:51:00 Test Item Value Reference Range Interpretation Comments Lymphocytes (test code = Lymphocytes) 23.6 20.0-40.0 [facility] AliceSaetfseGQIHINPYNG6455-14-27 10:51:00 Test Item Value Reference Range Interpretation Comments Segs (test code = Segs) 60.8 45.0-75.0 [facility] AliceBlgtlfxWBCMNRXIFE8653-30-71 10:51:00 Test Item Value Reference Range Interpretation Comments MPV (test code = MPV) 8.3 7.4-10.4 [facility] AliceYxstrwuWOYCTAYSEO1594-43-16 10:51:00 Test Item Value Reference Range Interpretation Comments Platelet (test code = Platelet) 196 133-450 [facility] AliceGsquqceTAQFKYMAEK3931-37-30 10:51:00 Test Item Value Reference Range Interpretation Comments RDW (test code = RDW) 14.6 11.5-14.5 [facility] AliceRtrivdrEQTWTWJDRW5861-42-12 10:51:00 Test Item Value Reference Range Interpretation Comments MCV (test code = MCV) 88.0 80.0-98.0 [facility] AliceNzbnfweFSXGBCCXCP5496-45-58 10:51:00 Test Item Value Reference Range Interpretation Comments MCH (test code = MCH) 28.7 pg 27.0-31.0 [facility] 10:51:00 Test Item Value Reference Range Interpretation Comments Hct (test code = Hct) 34.7 36.0-48.0 [facility] AliceEcfaqkwMXDKCBPVIE8096-67-07 10:51:00 Test Item Value Reference Range Interpretation Comments MCHC (test code = MCHC) 32.6 32.0-36.0 [facility] AliceCvddsdbGZVJKOBHZK0192-36-19 10:51:00 Test Item Value Reference Range Interpretation Comments Hgb (test code = Hgb) 11.3 12.0-16.0 [facility] AliceIartzqgQQVFARVSUQ7334-86-54 10:51:00 Test Item Value Reference Range Interpretation Comments RBC (test code = RBC) 3.94 4.20-5.40 [facility]31 10:51:00 Test Item Value Reference Range Interpretation Comments WBC (test code = WBC) 5.6 3.7-10.4 [facility] HJITJJL2012-67-67 10:51:00 Test Item Value Reference Range Interpretation Comments CK MB (test code = CK MB) 0.8 0.5-3.6 [facility] WXOLDPQ7317-51-29 10:51:00 Test Item Value Reference Range Interpretation Comments Total CK (test code = Total CK) 70 12-191 [facility] BLRFVEH5656-08-05 10:51:00 Test Item Value Reference Range Interpretation Comments CK MB Index (test 1.1 See_Comment [Automate d message] The code = CK MB Index) system w [employer] generated this result transmit marcelle reference range : <=2.5. The reference range was not used to interpr et this result as aranza l/abnormal. [facility]2015-07-26 10:51:00 Test Item Value Reference Range Interpretation Comments eGFR (test code = eGFR) 106 [facility]2015-07-26 10:51:00 Test Item Value Reference Range Interpretation Comments CO2 (test code = CO2) 27 24-32 [facility]2015-07-26 10:51:00 Test Item Value Reference Range Interpretation Comments Calcium Lvl (test code = Calcium Lvl) 9.2 8.5-10.5 [facility]2015-07-26 10:51:00 Test Item Value Reference Range Interpretation Comments Chloride Lvl (test code = Chloride Lvl) 108 95-109 [facility]2015-07-26 10:51:00 Test Item Value Reference Range Interpretation Comments Sodium Lvl (test code = Sodium Lvl) 142 135-145 [facility]2015-07-26 10:51:00 Test Item Value Reference Range Interpretation Comments Potassium Lvl (test code = Potassium 3.5 3.5-5.1 Lvl) [facility]2015-07-26 10:51:00 Test Item Value Reference Range Interpretation Comments Creatinine Lvl (test code = Creatinine 0.7 0.5-1.4 Lvl) [facility]2015-07-26 10:51:00 Test Item Value Reference Range Interpretation Comments BUN (test code = BUN) 8 7-22 [facility]2015-07-26 10:51:00 Test Item Value Reference Range Interpretation Comments Glucose Lvl (test code = Glucose Lvl) 101 70-99 [facility]2015-07-26 10:51:00 Test Item Value Reference Range Interpretation Comments AGAP (test code = AGAP) 10.5 10.0-20.0 [facility] AliceQpfqwtzCRYVQUHHCP1951-28-29 10:51:00 Test Item Value Reference Range Interpretation Comments Lymphocytes # (test code = Lymphocytes 1.3 1.0-5.5 #) [facility] AliceWpsdfnjBEPCFEWYHX0712-16-16 10:51:00 Test Item Value Reference Range Interpretation Comments Segs-Bands # (test code = Segs-Bands #) 3.4 1.5-8.1 [facility] AliceWgkyzanWCXWAENYYX3845-10-04 10:51:00 Test Item Value Reference Range Interpretation Comments Basophils (test code = 0.6 See_Comment [Aut omated message] The Basophils) system which ge nerated this result tra nsmitted reference range : <=1.0. The reference r melody was not used to int erpret this result as normal/abnormal . [facility] AliceEgtmrjwOGLCTJSFBR8226-56-02 10:51:00 Test Item Value Reference Range Interpretation Comments Eosinophils (test code = 4.0 See_Comment [A utomated message] The Eosinophils) system which ge nerated this result tra nsmitted reference range : <=4.0. The reference r melody was not used to int erpret this result as normal/abnormal . [facility] AliceAjnsofkOFIMOUTAGA7347-11-66 10:51:00 Test Item Value Reference Range Interpretation Comments Eosinophils # (test code 0.2 See_Comment [A utomated message] The = Eosinophils #) system whic h generated this result tra nsmitted reference range : <=0.5. The reference r melody was not used to int erpret this result as normal/abnormal . [facility] AliceNcnnlbrFALVHARAYQ5387-28-22 10:51:00 Test Item Value Reference Range Interpretation Comments Monocytes # (test code 0.6 See_Comment [Aut omated message] The = Monocytes #) system which generated this result tra nsmitted reference range : <=0.8. The reference r melody was not used to int erpret this result as normal/abnormal . [facility]psky[facility]VFMDNAHCLE0344-69-55 10:51:00 Test Item Value Reference Range Interpretation Comments Monocytes (test code = Monocytes) 11.0 2.0-12.0 [facility] SDYBAXB8932-08-17 10:19:00 Test Item Value Reference Range Interpretation Comments CK MB Index (test 1.6 See_Comment [Automate d message] The code = CK MB Index) system w [facility] generated this result transmit marcelle reference range : <=2.5. The reference range was not used to interpr et this result as aranza l/abnormal. [facility] VXZNFNX8667-45-90 10:19:00 Test Item Value Reference Range Interpretation Comments CK MB (test code = CK MB) 1.0 0.5-3.6 [facility] FSLXIEU4897-61-71 10:19:00 Test Item Value Reference Range Interpretation Comments Total CK (test code = Total CK) 64 12-191 [facility] AVZVC0187-02-52 10:19:00 Test Item Value Reference Range Interpretation Comments eGFR (test code = eGFR) 111 [email or web address] ZMLSO5376-89-62 10:19:00 Test Item Value Reference Range Interpretation Comments Calcium Lvl (test code = Calcium Lvl) 8.7 8.5-10.5 [facility] FIPML1755-08-21 10:19:00 Test Item Value Reference Range Interpretation Comments Sodium Lvl (test code = Sodium Lvl) 144 135-145 [facility]App[facility] UDEJT5326-58-48 10:19:00 Test Item Value Reference Range Interpretation Comments Potassium Lvl (test code = Potassium 3.9 3.5-5.1 Lvl) [facility]App[facility] YGUVU4493-69-25 10:19:00 Test Item Value Reference Range Interpretation Comments Chloride Lvl (test code = Chloride Lvl) 112 95-109 [facility]App[facility] CQBZP4615-32-63 10:19:00 Test Item Value Reference Range Interpretation Comments CO2 (test code = CO2) 27 24-32 [facility] HYVAN7723-49-15 10:19:00 Test Item Value Reference Range Interpretation Comments Glucose Lvl (test code = Glucose Lvl) 94 70-99 [facility]2015-07-25 10:19:00 Test Item Value Reference Range Interpretation Comments BUN (test code = BUN) 8 7-22 [facility]2015-07-25 10:19:00 Test Item Value Reference Range Interpretation Comments Creatinine Lvl (test code = Creatinine 0.6 0.5-1.4 Lvl) [facility]2015-07-25 10:19:00 Test Item Value Reference Range Interpretation Comments AGAP (test code = AGAP) 8.9 10.0-20.0 [facility] AliceFlsdobmXJLXXVYWMF6796-23-87 10:19:00 Test Item Value Reference Range Interpretation Comments Eosinophils # (test code 0.2 See_Comment [A utomated message] The = Eosinophils #) system whic h generated this result tra nsmitted reference range : <=0.5. The reference r melody was not used to int erpret this result as normal/abnormal . [facility] AliceLctvpatKTDYWTELCP7307-71-40 10:19:00 Test Item Value Reference Range Interpretation Comments Monocytes # (test code 0.5 See_Comment [Aut omated message] The = Monocytes #) system which generated this result tra nsmitted reference range : <=0.8. The reference r melody was not used to int erpret this result as normal/abnormal . [facility] AliceCmhmsqqIGZLNHETSA5688-48-32 10:19:00 Test Item Value Reference Range Interpretation Comments Basophils (test code = 0.9 See_Comment [Aut omated message] The Basophils) system which ge nerated this result tra nsmitted reference range : <=1.0. The reference r melody was not used to int erpret this result as normal/abnormal . [facility] AliceXmlvqndKKDELOWNOX4500-90-07 10:19:00 Test Item Value Reference Range Interpretation Comments Monocytes (test code = Monocytes) 11.2 2.0-12.0 [facility] AliceHjeweykZWWQEGBZHX4029-85-48 10:19:00 Test Item Value Reference Range Interpretation Comments Segs-Bands # (test code = Segs-Bands #) 2.1 1.5-8.1 [facility] AliceWanfcmdTEXKJUFSKM9021-73-18 10:19:00 Test Item Value Reference Range Interpretation Comments Eosinophils (test code = 3.7 See_Comment [A utomated message] The Eosinophils) system which ge nerated this result tra nsmitted reference range : <=4.0. The reference r melody was not used to int erpret this result as normal/abnormal . [facility] AliceLxzycedDATQERABAA2565-17-14 10:19:00 Test Item Value Reference Range Interpretation Comments Lymphocytes # (test code = Lymphocytes 1.6 1.0-5.5 #) [facility] AliceEjagszlJFMHFZZIPP2015-89-01 10:19:00 Test Item Value Reference Range Interpretation Comments Segs (test code = Segs) 48.6 45.0-75.0 [facility] AliceNpfacewVDZYDYLKXS8234-20-54 10:19:00 Test Item Value Reference Range Interpretation Comments Lymphocytes (test code = Lymphocytes) 35.6 20.0-40.0 [facility] AliceUxndrchZOLIEGDUEE8221-63-68 10:19:00 Test Item Value Reference Range Interpretation Comments MPV (test code = MPV) 8.9 7.4-10.4 [facility] AliceAszgrcnIKAOTTRAFT9786-95-34 10:19:00 Test Item Value Reference Range Interpretation Comments WBC (test code = WBC) 4.4 3.7-10.4 [facility] AliceHovmaibYPUKTUWJLR7679-21-86 10:19:00 Test Item Value Reference Range Interpretation Comments MCH (test code = MCH) 29.9 pg 27.0-31.0 [facility] AliceZcrthfkQDNRCJQWGA4206-10-38 10:19:00 Test Item Value Reference Range Interpretation Comments MCV (test code = MCV) 86.5 80.0-98.0 [facility] AliceCqlhrftDOYXYHWITZ5659-57-52 10:19:00 Test Item Value Reference Range Interpretation Comments MCHC (test code = MCHC) 34.6 32.0-36.0 [facility] AliceXrnlusdUTDYDHIPGZ6263-23-23 10:19:00 Test Item Value Reference Range Interpretation Comments Hgb (test code = Hgb) 11.7 12.0-16.0 [facility] AliceHejmbbnWJGWODIGBX7204-08-50 10:19:00 Test Item Value Reference Range Interpretation Comments RBC (test code = RBC) 3.92 4.20-5.40 [facility] AliceOtgqtqfBSQUGMFSMM2505-49-50 10:19:00 Test Item Value Reference Range Interpretation Comments Hct (test code = Hct) 33.9 36.0-48.0 [facility]FHATCDGDSR5639[facility]72-26 10:19:00 Test Item Value Reference Range Interpretation Comments RDW (test code = RDW) 14.6 11.5-14.5 [facility] TylerAilpywbILYWNUTCJM6710-67-29 10:19:00 Test Item Value Reference Range Interpretation Comments Platelet (test code = Platelet) 176 133-450 [facility] Cle[facility]neSchoooools.comAC ZAJHGCA4218-17-06 03:22:00 Test Item Value Reference Range Interpretation Comments CK MB Index (test 1.6 See_Comment [Automate d message] The code = CK MB Index) system w [facility] generated this result transmit marcelle reference range : <=2.5. The reference range was not used to interpr et this result as aranza l/abnormal. [facility] CleburneSchoooools.com KWVDJTV9566-94-39 03:22:00 Test Item Value Reference Range Interpretation Comments Total CK (test code = Total CK) 77 12-191 [facility] EFOIALK6016-23-72 03:22:00 Test Item Value Reference Range Interpretation Comments CK MB (test code = CK MB) 1.2 0.5-3.6 [facility] CleburneAppTweak.com UJTWB8272-09-31 02:44:00 Test Item Value Reference Range Interpretation Comments Lactic Acid Lvl (test code = Lactic 1.4 0.5-2.2 Acid Lvl) [facility] CleburneSchoooools.com FGAFEDA8240-05-92 21:13:00 Test Item Value Reference Range Interpretation Comments Troponin-I (test code no gt See_Comment [Auto mated message] The = Troponin-I) system which g enerated this result transmit marcelle reference range : <=0.40. The reference r melody was not used to interpr et this result as aranza l/abnormal. [facility] [employer] [id number] 21:13:00 Test Item Value Reference Range Interpretation Comments Globulin (test code = Globulin) 3.3 2.0-4.[address] [facility] [employer] [id number] 21:13:00 Test Item Value Reference Range Interpretation Comments A/G Ratio (test code = A/G Ratio) 1.1 0.7-1.[address] [facility] [employer] [id number] 21:13:00 Test Item Value Reference Range Interpretation Comments B/C Ratio (test code = B/C Ratio) 16 6-25 [facility]2015-07-24 21:13:00 Test Item Value Reference Range Interpretation Comments Alk Phos (test code = Alk Phos) 105 39-136 [facility]2015-07-24 21:13:00 Test Item Value Reference Range Interpretation Comments AST (test code = AST) 25 See_Comment [Auto mated message] The system which ge nerated this result transmit marcelle reference range : <=37. The reference range was not used to interpr et this result as aranza l/abnormal. [facility]2015-07-24 21:13:00 Test Item Value Reference Range Interpretation Comments Bili Total (test code = Bili Total) 0.5 0.2-1.3 [facility]2015-07-24 21:13:00 Test Item Value Reference Range Interpretation Comments ALT (test code = ALT) 32 See_Comment [Auto mated message] The system which ge nerated this result transmit marcelle reference range : <=65. The reference range was not used to interpr et this result as aranza l/abnormal. [facility]2015-07-24 21:13:00 Test Item Value Reference Range Interpretation Comments Albumin Lvl (test code = Albumin Lvl) 3.7 3.5-5.0 [facility]2015-07-24 21:13:00 Test Item Value Reference Range Interpretation Comments Total Protein (test code = Total 7.0 6.4-8.4 Protein) [facility] AliceLtliufoEOTJNODNDD6287-82-13 21:13:00 Test Item Value Reference Range Interpretation Comments Basophils # (test code 0.0 See_Comment [Aut omated message] The = Basophils #) system which generated this result tra nsmitted reference range : <=0.2. The reference r melody was not used to int erpret this result as normal/abnormal . [facility] AliceCjgwxvwDAEZQOZVBE4334-81-94 21:13:00 Test Item Value Reference Range Interpretation Comments INR (test code = INR) 1.04 0.85-1.17 [facility] AliceSvtmbghXRPXILTGWE4401-36-32 21:13:00 Test Item Value Reference Range Interpretation Comments PT (test code = PT) 13.6 s 12.0-14.7 [facility] AliceWkyzcglNQNYNMMWAO9881-60-01 21:13:00 Test Item Value Reference Range Interpretation Comments PTT (test code = PTT) 35.2 s 22.9-35.[address] [facility] JustInvestingannCARVacatiaAC OFCASKY8492-42-40 21:10:00 Test Item Value Reference Range Interpretation Comments BNP (test code = BNP) 6 [facility] DHOJEIT0770-34-93 21:02:00 Test Item Value Reference Range Interpretation Comments Troponin-I (test code no gt See_Comment [Auto mated message] The = Troponin-I) system which g enerated this result transmit marcelle reference range : <=0.40. The reference r melody was not used to interpr et this result as aranza l/abnormal. [facility] JustInvestingannSp[facility] TherapistAC EOWUFAM5624-39-85 21:02:00 Test Item Value Reference Range Interpretation Comments BNP (test code = BNP) 31 [facility]AC [id number] 21:02:00 Test Item Value Reference Range Interpretation Comments CK MB (test code = CK MB) 0.8 0.5-3.[address] [facility] AmobeeAC [id number] 21:02:00 Test Item Value Reference Range Interpretation Comments Total CK (test code = Total CK) 70 12-191 [facility] HIKUYNI6088-24-58 21:02:00 Test Item Value Reference Range Interpretation Comments CK MB Index (test 1.1 See_Comment [Automate d message] The code = CK MB Index) system [facility] generated this result transmit marcelle reference range : <=2.5. The reference range was not used to interpr et this result as aranza l/abnormal. [employer] EAXUI9246-52-26 21:02:00 Test Item Value Reference Range Interpretation Comments eGFR (test code = eGFR) 106 [facility] [employer] [id number] 21:02:00 Test Item Value Reference Range Interpretation Comments Alk Phos (test code = Alk Phos) 99 39-136 [facility] [employer] [id number] 21:02:00 Test Item Value Reference Range Interpretation Comments Bili Total (test code = Bili Total) 0.6 0.2-1.3 [facility] [employer] [id number] 21:02:00 Test Item Value Reference Range Interpretation Comments B/C Ratio (test code = B/C Ratio) 11 6-25 [facility]2015-07-14 21:02:00 Test Item Value Reference Range Interpretation Comments AGAP (test code = AGAP) 9.4 10.0-20.0 [facility]2015-07-14 21:02:00 Test Item Value Reference Range Interpretation Comments Globulin (test code = Globulin) 3.1 2.0-4.0 [facility]2015-07-14 21:02:00 Test Item Value Reference Range Interpretation Comments A/G Ratio (test code = A/G Ratio) 1.1 0.7-1.6 [facility]2015-07-14 21:02:00 Test Item Value Reference Range Interpretation Comments Glucose Lvl (test code = Glucose Lvl) 73 70-99 [facility]2015-07-14 21:02:00 Test Item Value Reference Range Interpretation Comments BUN (test code = BUN) 8 7-22 [facility]2015-07-14 21:02:00 Test Item Value Reference Range Interpretation Comments Creatinine Lvl (test code = Creatinine 0.7 0.5-1.4 Lvl) [facility]2015-07-14 21:02:00 Test Item Value Reference Range Interpretation Comments Sodium Lvl (test code = Sodium Lvl) 143 135-145 [facility]2015-07-14 21:02:00 Test Item Value Reference Range Interpretation Comments Potassium Lvl (test code = Potassium 3.4 3.5-5.1 Lvl) [facility]2015-07-14 21:02:00 Test Item Value Reference Range Interpretation Comments CO2 (test code = CO2) 28 24-32 [facility]2015-07-14 21:02:00 Test Item Value Reference Range Interpretation Comments Chloride Lvl (test code = Chloride Lvl) 109 95-109 [facility]2015-07-14 21:02:00 Test Item Value Reference Range Interpretation Comments Calcium Lvl (test code = Calcium Lvl) 8.9 8.5-10.5 [facility]2015-07-14 21:02:00 Test Item Value Reference Range Interpretation Comments Total Protein (test code = Total 6.5 6.4-8.4 Protein) [facility]2015-07-14 21:02:00 Test Item Value Reference Range Interpretation Comments Albumin Lvl (test code = Albumin Lvl) 3.4 3.5-5.0 [facility]2015-07-14 21:02:00 Test Item Value Reference Range Interpretation Comments ALT (test code = ALT) 30 See_Comment [Auto mated message] The system which ge nerated this result transmit marcelle reference range : <=65. The reference range was not used to interpr et this result as aranza l/abnormal. [facility] [id number] 21:02:00 Test Item Value Reference Range Interpretation Comments AST (test code = AST) 21 See_Comment [Auto mated message] The system which ge nerated this result transmit marcelle reference range : <=37. The reference range was not used to interpr et this result as aranza l/abnormal. [facility] AliceRzelhuqYPWRKLXFKH7925-78-43 21:02:00 Test Item Value Reference Range Interpretation Comments RDW (test code = RDW) 15.1 11.5-14.5 [facility] AliceYiiutcfVAOQYBCWWI6123-82-23 21:02:00 Test Item Value Reference Range Interpretation Comments MCHC (test code = MCHC) 33.1 32.0-36.0 [facility] AliceOcbkqprWRSRUVZOXT0317-61-51 21:02:00 Test Item Value Reference Range Interpretation Comments Platelet (test code = Platelet) 190 133-450 [facility] AliceNcvywruDHLZTZLGID6188-15-92 21:02:00 Test Item Value Reference Range Interpretation Comments MPV (test code = MPV) 8.1 7.4-10.4 [facility] AliceHhufijgTPMFCYDBMC6286-40-13 21:02:00 Test Item Value Reference Range Interpretation Comments Hct (test code = Hct) 34.6 36.0-48.0 [facility] AliceEgswmvvFUOBFXRYQW9648-37-89 21:02:00 Test Item Value Reference Range Interpretation Comments Hgb (test code = Hgb) 11.5 12.0-16.0 [facility] AliceZuyoknoOABQQWQYCG1462-30-56 21:02:00 Test Item Value Reference Range Interpretation Comments MCH (test code = MCH) 28.8 pg 27.0-31.0 [facility] AliceVqtgodvEDWEYPXCXE0059-75-76 21:02:00 Test Item Value Reference Range Interpretation Comments MCV (test code = MCV) 86.9 80.0-98.0 [place] 735555-07-14 21:02:00 Test Item Value Reference Range Interpretation Comments RBC (test code = RBC) 3.98 4.20-5.40 [facility] AliceSizheuhPZPCAUDBDR9948-65-50 21:02:00 Test Item Value Reference Range Interpretation Comments WBC (test code = WBC) 6.5 3.7-10.4 [facility] AliceNlvbpzzHPYRNOGIYA7850-99-55 21:02:00 Test Item Value Reference Range Interpretation Comments PTT (test code = PTT) 32.8 s 22.9-35.8 [facility] AliceJnbcrgdSLLHUGICFZ8138-74-73 21:02:00 Test Item Value Reference Range Interpretation Comments PT (test code = PT) 13.3 s 12.0-14.7 [facility] AliceRsfbjhaIFRSZBNMRV7574-74-19 21:02:00 Test Item Value Reference Range Interpretation Comments INR (test code = INR) 1.01 0.85-1.17 [facility] AliceGtybfliVLUUPNABOB3489-01-94 21:02:00 Test Item Value Reference Range Interpretation Comments Basophils # (test code 0.0 See_Comment [Aut omated message] The = Basophils #) system which generated this result tra nsmitted reference range : <=0.2. The reference r melody was not used to int erpret this result as normal/abnormal . [facility] AliceHnkomnmBMAOUHTAHW1959-98-16 21:02:00 Test Item Value Reference Range Interpretation Comments Segs-Bands # (test code = Segs-Bands #) 3.7 1.5-8.1 [facility] AliceSlbeeqqAYUWAJJGAS4378-77-60 21:02:00 Test Item Value Reference Range Interpretation Comments Eosinophils # (test code 0.2 See_Comment [A utomated message] The = Eosinophils #) system whic h generated this result tra nsmitted reference range : <=0.5. The reference r melody was not used to int erpret this result as normal/abnormal . [facility] AliceHdmbrrpTCTTLDJFBH2916-68-91 21:02:00 Test Item Value Reference Range Interpretation Comments Monocytes # (test code 0.6 See_Comment [Aut omated message] The = Monocytes #) system which generated this result tra nsmitted reference range : <=0.8. The reference r melody was not used to int erpret this result as normal/abnormal . [facility] AliceRjenzioTITQCZNUVC6537-61-34 21:02:00 Test Item Value Reference Range Interpretation Comments Lymphocytes # (test code = Lymphocytes 1.9 1.0-5.5 #) [facility] AliceDjrmnmjMWNZQVEOPI5801-74-09 21:02:00 Test Item Value Reference Range Interpretation Comments Segs (test code = Segs) 56.9 45.0-75.0 [facility] AliceYaksdssAHBSEOJMUX1979-99-23 21:02:00 Test Item Value Reference Range Interpretation Comments Eosinophils (test code = 2.7 See_Comment [A utomated message] The Eosinophils) system which ge nerated this result tra nsmitted reference range : <=4.0. The reference r melody was not used to int erpret this result as normal/abnormal . [facility] AliceMikuuazRULETESKZR5273-51-95 21:02:00 Test Item Value Reference Range Interpretation Comments Basophils (test code = 0.4 See_Comment [Aut omated message] The Basophils) system which ge nerated this result tra nsmitted reference range : <=1.0. The reference r melody was not used to int erpret this result as normal/abnormal . [facility] AliceHfsxfdvXKJWCIRIGR4051-34-99 21:02:00 Test Item Value Reference Range Interpretation Comments Monocytes (test code = Monocytes) 9.9 2.0-12.0 [facility] AliceSobzdlnPCPWYHJKZP8935-73-55 21:02:00 Test Item Value Reference Range Interpretation Comments Lymphocytes (test code = Lymphocytes) 30.1 20.0-40.0 [facility] MHPLFDY6089-98-54 09:33:00 Test Item Value Reference Range Interpretation Comments Troponin-I (test code no gt See_Comment [Auto mated message] The = Troponin-I) system which g enerated this result transmit marcelle reference range : <=0.40. The reference r melody was not used to interpr et this result as aranza l/abnormal. [facility] TylerMCube, IncUYTUYNH9314-34-63 06:16:00 Test Item Value Reference Range Interpretation Comments Troponin-I (test code no gt See_Comment [Auto mated message] The = Troponin-I) system which g enerated this result transmit marcelle reference range : <=0.40. The reference r melody was not used to interpr et this result as aranza l/abnormal. [facility]2015-07-08 06:16:00 Test Item Value Reference Range Interpretation Comments A/G Ratio (test code = A/G Ratio) 1.1 0.7-1.6 [place] 768425-07-08 06:16:00 Test Item Value Reference Range Interpretation Comments Globulin (test code = Globulin) 3.5 2.0-4.0 [place] 768425-07-08 06:16:00 Test Item Value Reference Range Interpretation Comments Bili Indirect (test 0.5 See_Comment [Automa marcelle message] The code = Bili Indirect) system which generated this result tra nsmitted reference range : <=1.0. The reference r melody was not used to int erpret this result as normal/abnormal . [place] 768425-07-08 06:16:00 Test Item Value Reference Range Interpretation Comments Bili Direct (test code 0.1 See_Comment [Aut omated message] The = Bili Direct) system which generated this result tra nsmitted reference range : <=0.3. The reference r melody was not used to int erpret this result as aranza l/abnormal. [facility]2015-07-08 06:16:00 Test Item Value Reference Range Interpretation Comments ALT (test code = ALT) 25 See_Comment [Auto mated message] The system which ge nerated this result transmit marcelle reference range : <=65. The reference range was not used to interpr et this result as aranza l/abnormal. [facility]2015-07-08 06:16:00 Test Item Value Reference Range Interpretation Comments AST (test code = AST) 21 See_Comment [Auto mated message] The system which ge nerated this result transmit marcelle reference range : <=37. The reference range was not used to interpr et this result as aranza l/abnormal. [place] 768425-07-08 06:16:00 Test Item Value Reference Range Interpretation Comments Albumin Lvl (test code = Albumin Lvl) 3.7 3.5-5.0 [place] 768425-07-08 06:16:00 Test Item Value Reference Range Interpretation Comments Alk Phos (test code = Alk Phos) 119 39-136 [facility]2015-07-08 06:16:00 Test Item Value Reference Range Interpretation Comments Bili Total (test code = Bili Total) 0.6 0.2-1.3 [facility]2015-07-08 06:16:00 Test Item Value Reference Range Interpretation Comments Total Protein (test code = Total 7.2 6.4-8.4 Protein) [facility]2015-07-08 06:16:00 Test Item Value Reference Range Interpretation Comments Lipase Lvl (test code = Lipase Lvl) 221 73-393 [facility]ZpdcikkYXBEAZHAQTHP7100-06-32 06:16:00 Test Item Value Reference Range Interpretation Comments AGAP (test code = AGAP) 12.6 10.0-20.0 [facility]GhmkqyzKBUNPGKORLBP4981-06-95 06:16:00 Test Item Value Reference Range Interpretation Comments eGFR (test code = eGFR) 78 [facility] HospitalLrswvbjRHNPDUNOLQWM5057-86-07 06:16:00 Test Item Value Reference Range Interpretation Comments Calcium Lvl (test code = Calcium Lvl) 9.6 8.5-10.5 [facility] HospitalHpdrqhvHHAYCRFNBUUB4586-69-62 06:16:00 Test Item Value Reference Range Interpretation Comments CO2 (test code = CO2) 29 24-32 [facility] HospitalEeezcjjIWDLJBCHKLUR5932-96-70 06:16:00 Test Item Value Reference Range Interpretation Comments Potassium Lvl (test code = Potassium 3.6 3.5-5.1 Lvl) [facility] HospitalInfapaiCPFATDXDVBDZ0520-55-58 06:16:00 Test Item Value Reference Range Interpretation Comments Chloride Lvl (test code = Chloride Lvl) 103 95-109 [facility] HospitalGezwwswAEGOVYQHTCIM1416-93-36 06:16:00 Test Item Value Reference Range Interpretation Comments Sodium Lvl (test code = Sodium Lvl) 141 135-145 [facility] HospitalGbflattGXLXTTKNBJEN5474-08-70 06:16:00 Test Item Value Reference Range Interpretation Comments Creatinine Lvl (test code = Creatinine 0.8 0.5-1.4 Lvl) [facility] HospitalGteenceNXNSQIZWDNER4140-22-24 06:16:00 Test Item Value Reference Range Interpretation Comments BUN (test code = BUN) 9 7-22 [facility] HospitalWruizbaOQFXXJZOIQFA3951-93-11 06:16:00 Test Item Value Reference Range Interpretation Comments Glucose Lvl (test code = Glucose Lvl) 96 70-99 [facility] AliceTvsyqcsNUTQRENTFI1376-79-39 06:16:00 Test Item Value Reference Range Interpretation Comments Lymphocytes # (test code = Lymphocytes 2.6 1.0-5.5 #) [facility] AliceBeyqafwNVISZVMLPD4873-80-76 06:16:00 Test Item Value Reference Range Interpretation Comments Monocytes # (test code 0.9 See_Comment [Aut omated message] The = Monocytes #) system which generated this result tra nsmitted reference range : <=0.8. The reference r melody was not used to int erpret this result as normal/abnormal . [facility] AliceZgxzshaWKVKKBUKKE6147-47-78 06:16:00 Test Item Value Reference Range Interpretation Comments Basophils (test code = 0.7 See_Comment [Aut omated message] The Basophils) system which ge nerated this result tra nsmitted reference range : <=1.0. The reference r melody was not used to int erpret this result as normal/abnormal . [facility] AliceVrqyimsPVSYKLRHRL6611-66-42 06:16:00 Test Item Value Reference Range Interpretation Comments Eosinophils (test code = 1.7 See_Comment [A utomated message] The Eosinophils) system which ge nerated this result tra nsmitted reference range : <=4.0. The reference r melody was not used to int erpret this result as normal/abnormal . [facility] AliceRweyqcgDZABQPWDPO0472-52-19 06:16:00 Test Item Value Reference Range Interpretation Comments Segs-Bands # (test code = Segs-Bands #) 6.7 1.5-8.1 [facility] AliceAcqillwBASJZBPVFO0372-47-54 06:16:00 Test Item Value Reference Range Interpretation Comments Lymphocytes (test code = Lymphocytes) 25.0 20.0-40.0 [facility] AliceGbfjkvsJAYYPFQPOW6836-97-33 06:16:00 Test Item Value Reference Range Interpretation Comments Segs (test code = Segs) 64.3 45.0-75.0 [facility] AliceIoxbwqyTMMTKEJCQM4194-73-09 06:16:00 Test Item Value Reference Range Interpretation Comments Monocytes (test code = Monocytes) 8.3 2.0-12.0 [facility] AliceTnoxhhwOHXEXFUNSO4167-35-90 06:16:00 Test Item Value Reference Range Interpretation Comments Eosinophils # (test code 0.2 See_Comment [A utomated message] The = Eosinophils #) system whic h generated this result tra nsmitted reference range : <=0.5. The reference r melody was not used to int erpret this result as normal/abnormal . [facility] AliceFeowtcgMWMQHSUWNY0529-66-46 06:16:00 Test Item Value Reference Range Interpretation Comments Basophils # (test code 0.1 See_Comment [Aut omated message] The = Basophils #) system which generated this result tra nsmitted reference range : <=0.2. The reference r melody was not used to int erpret this result as normal/abnormal . [facility] AliceJnlxobhOTKOFQPFER6849-04-33 06:16:00 Test Item Value Reference Range Interpretation Comments MCV (test code = MCV) 87.7 80.0-98.0 [facility] AliceTqctrxnUGWBSAOHVO7890-56-19 06:16:00 Test Item Value Reference Range Interpretation Comments Hct (test code = Hct) 39.7 36.0-48.0 [facility] AliceRzjelzvWCESKGERCJ6790-63-72 06:16:00 Test Item Value Reference Range Interpretation Comments MPV (test code = MPV) 8.0 7.4-10.4 [facility] AliceJkffxevSHYQYHEPXR5582-16-01 06:16:00 Test Item Value Reference Range Interpretation Comments Platelet (test code = Platelet) 216 133-450 [facility] AliceMhcbooyOJVWACOVFP7442-09-60 06:16:00 Test Item Value Reference Range Interpretation Comments RDW (test code = RDW) 14.6 11.5-14.5 [facility] AliceLgmgdudRLWZNIFEQU6890-82-33 06:16:00 Test Item Value Reference Range Interpretation Comments MCHC (test code = MCHC) 32.4 32.0-36.0 [facility] AliceOdenwsiWQQRKKERPA8207-77-42 06:16:00 Test Item Value Reference Range Interpretation Comments MCH (test code = MCH) 28.4 pg 27.0-31.0 [facility] AliceLkwdcfcCIQGEPQHDS7023-51-77 06:16:00 Test Item Value Reference Range Interpretation Comments WBC (test code = WBC) 10.5 3.7-10.4 [facility] AliceEiwbnliRBQBRTUAKE8753-83-89 06:16:00 Test Item Value Reference Range Interpretation Comments RBC (test code = RBC) 4.53 4.20-5.40 [facility] AliceXuxmdjbDERGUMUIBY4977-14-33 06:16:00 Test Item Value Reference Range Interpretation Comments Hgb (test code = Hgb) 12.9 12.0-16.0 [facility]2015-06-30 09:16:00 Test Item Value Reference Range Interpretation Comments Magnesium Lvl (test code = Magnesium 2.0 1.8-2.4 Lvl) [place] 768425-06-30 09:16:00 Test Item Value Reference Range Interpretation Comments Phosphorus (test code = Phosphorus) 3.6 2.5-4.5 [facility]2015-06-30 09:16:00 Test Item Value Reference Range Interpretation Comments eGFR (test code = eGFR) 106 [facility]2015-06-30 09:16:00 Test Item Value Reference Range Interpretation Comments AST (test code = AST) 17 See_Comment [Auto mated message] The system which ge nerated this result transmit marcelle reference range : <=37. The reference range was not used to interpr et this result as aranza l/abnormal. [facility]2015-06-30 09:16:00 Test Item Value Reference Range Interpretation Comments Albumin Lvl (test code = Albumin Lvl) 3.3 3.5-5.0 [facility]2015-06-30 09:16:00 Test Item Value Reference Range Interpretation Comments A/G Ratio (test code = A/G Ratio) 1.1 0.7-1.6 [place] 768425-06-30 09:16:00 Test Item Value Reference Range Interpretation Comments Total Protein (test code = Total 6.3 6.4-8.4 Protein) [facility]2015-06-30 09:16:00 Test Item Value Reference Range Interpretation Comments ALT (test code = ALT) 21 See_Comment [Auto mated message] The system which ge nerated this result transmit marcelle reference range : <=65. The reference range was not used to interpr et this result as aranza l/abnormal. [facility]2015-06-30 09:16:00 Test Item Value Reference Range Interpretation Comments Globulin (test code = Globulin) 3.0 2.0-4.0 [facility]2015-06-30 09:16:00 Test Item Value Reference Range Interpretation Comments Bili Total (test code = Bili Total) 0.5 0.2-1.3 [facility]2015-06-30 09:16:00 Test Item Value Reference Range Interpretation Comments Alk Phos (test code = Alk Phos) 119 39-136 [facility]2015-06-30 09:16:00 Test Item Value Reference Range Interpretation Comments B/C Ratio (test code = B/C Ratio) 11 6-25 [facility]2015-06-30 09:16:00 Test Item Value Reference Range Interpretation Comments Calcium Lvl (test code = Calcium Lvl) 9.1 8.5-10.5 [facility]2015-06-30 09:16:00 Test Item Value Reference Range Interpretation Comments Glucose Lvl (test code = Glucose Lvl) 99 70-99 [facility]2015-06-30 09:16:00 Test Item Value Reference Range Interpretation Comments BUN (test code = BUN) 8 7-22 [facility]2015-06-30 09:16:00 Test Item Value Reference Range Interpretation Comments Sodium Lvl (test code = Sodium Lvl) 140 135-145 [facility]2015-06-30 09:16:00 Test Item Value Reference Range Interpretation Comments Creatinine Lvl (test code = Creatinine 0.7 0.5-1.4 Lvl) [facility]2015-06-30 09:16:00 Test Item Value Reference Range Interpretation Comments AGAP (test code = AGAP) 8.9 10.0-20.0 [facility]2015-06-30 09:16:00 Test Item Value Reference Range Interpretation Comments Chloride Lvl (test code = Chloride Lvl) 107 95-109 [facility]2015-06-30 09:16:00 Test Item Value Reference Range Interpretation Comments CO2 (test code = CO2) 28 24-32 [facility]2015-06-30 09:16:00 Test Item Value Reference Range Interpretation Comments Potassium Lvl (test code = Potassium 3.9 3.5-5.1 Lvl) [facility]wuxaefKBPMHUPOHR3145[facility]00-80 09:16:00 Test Item Value Reference Range Interpretation Comments Platelet (test code = Platelet) 216 133-450 [facility] AliceJiqltbiVOJNJRFFLK1701-50-37 09:16:00 Test Item Value Reference Range Interpretation Comments MPV (test code = MPV) 8.8 7.4-10.4 [facility] AliceWkfrnfzQLWFTBAXLV9897-27-09 09:16:00 Test Item Value Reference Range Interpretation Comments RDW (test code = RDW) 14.9 11.5-14.5 [facility] AliceSsgwqssKHUFNMTEYN5553-60-11 09:16:00 Test Item Value Reference Range Interpretation Comments WBC (test code = WBC) 5.9 3.7-10.4 [facility] AliceDybldcrYZRFYAFLTJ5690-10-96 09:16:00 Test Item Value Reference Range Interpretation Comments MCV (test code = MCV) 88.4 80.0-98.0 [facility] AliceSdxcnodSMFDTMDKUC6617-91-93 09:16:00 Test Item Value Reference Range Interpretation Comments Hct (test code = Hct) 37.2 36.0-48.0 [facility] AliceGtppsuvUYJNLWCINJ0029-10-46 09:16:00 Test Item Value Reference Range Interpretation Comments MCH (test code = MCH) 28.6 pg 27.0-31.0 [facility] AliceTnwindbOOLLNVBRQT6135-92-99 09:16:00 Test Item Value Reference Range Interpretation Comments MCHC (test code = MCHC) 32.4 32.0-36.0 [facility] AliceYcojtblNKXZGOHDFR8363-57-99 09:16:00 Test Item Value Reference Range Interpretation Comments RBC (test code = RBC) 4.21 4.20-5.40 [facility] AliceHdpxvwxXLABMFHZYW9663-78-01 09:16:00 Test Item Value Reference Range Interpretation Comments Hgb (test code = Hgb) 12.0 12.0-16.0 [facility] AliceDqerqxbCXPXKBPPVB5033-38-18 09:16:00 Test Item Value Reference Range Interpretation Comments Lymphocytes (test code = Lymphocytes) 31.9 20.0-40.0 [facility] AliceRuntfjpLLCLAZQTIC6050-66-99 09:16:00 Test Item Value Reference Range Interpretation Comments Basophils (test code = 0.8 See_Comment [Aut omated message] The Basophils) system which ge nerated this result tra nsmitted reference range : <=1.0. The reference r melody was not used to int erpret this result as normal/abnormal . [facility] AliceOjeumzcEMUXSPHFDN9937-80-17 09:16:00 Test Item Value Reference Range Interpretation Comments Segs-Bands # (test code = Segs-Bands #) 3.1 1.5-8.1 [facility] AliceSvnfytuAFWOTINIIT2097-77-87 09:16:00 Test Item Value Reference Range Interpretation Comments Monocytes (test code = Monocytes) 11.6 2.0-12.0 [facility] AliceXryemyqKPVNRCTJVT8203-26-06 09:16:00 Test Item Value Reference Range Interpretation Comments Eosinophils (test code = 2.9 See_Comment [A utomated message] The Eosinophils) system which ge nerated this result tra nsmitted reference range : <=4.0. The reference r melody was not used to int erpret this result as normal/abnormal . [facility] AliceLrcfrabLYMYBULVDG8471-29-94 09:16:00 Test Item Value Reference Range Interpretation Comments Segs (test code = Segs) 52.8 45.0-75.0 [facility] AliceIbleibiZSEPCJAGYY3722-25-87 09:16:00 Test Item Value Reference Range Interpretation Comments Monocytes # (test code 0.7 See_Comment [Aut omated message] The = Monocytes #) system which generated this result tra nsmitted reference range : <=0.8. The reference r melody was not used to int erpret this result as normal/abnormal . [facility] AliceZoddospQIPNXHFGLX2740-57-82 09:16:00 Test Item Value Reference Range Interpretation Comments Lymphocytes # (test code = Lymphocytes 1.9 1.0-5.5 #) [facility] AliceWouimqjEEBIJHJTQG4473-22-55 09:16:00 Test Item Value Reference Range Interpretation Comments Eosinophils # (test code 0.2 See_Comment [A utomated message] The = Eosinophils #) system [facility] generated this result tra nsmitted reference range : <=0.5. The reference r melody was not used to int erpret this result as normal/abnormal . [facility] QEOKPPM1899-66-97 04:30:00 Test Item Value Reference Range Interpretation Comments Total CK (test code = Total CK) 74 12-191 [facility] LCUFBVT8348-28-93 04:30:00 Test Item Value Reference Range Interpretation Comments CK MB Index (test 1.2 See_Comment [Automate d message] The code = CK MB Index) system w [facility] generated this result transmit marcelle reference range : <=2.5. The reference range was not used to interpr et this result as aranza l/abnormal. [facility] [employer]CARVacatiaAC [id number] 04:30:00 Test Item Value Reference Range Interpretation Comments Troponin-I (test code no gt See_Comment [Auto mated message] The = Troponin-I) system which g enerated this result transmit marcelle reference range : <=0.40. The reference r melody was not used to interpr et this result as aranza l/abnormal. [facility] [employer] [id number] 04:30:00 Test Item Value Reference Range Interpretation Comments CK MB (test code = CK MB) 0.9 0.5-3.[address] [facility] JustInvestingannCARVacatiaAC LSRWMXY9225-65-02 23:29:00 Test Item Value Reference Range Interpretation Comments Troponin-I (test code no gt See_Comment [Auto mated message] The = Troponin-I) system which g enerated this result transmit marcelle reference range : <=0.40. The reference r melody was not used to interpr et this result as aranza l/abnormal. [facility] [employer] [id number] 23:29:00 Test Item Value Reference Range Interpretation Comments CK MB (test code = CK MB) 0.7 0.5-3.[address] [facility] [employer]AC [id number] 23:29:00 Test Item Value Reference Range Interpretation Comments Total CK (test code = Total CK) 68 12-[address] [facility] [employer]2015-06-29 23:29:00 Test Item Value Reference Range Interpretation Comments CK MB Index (test 1.0 See_Comment [Automate d message] The code = CK MB Index) system w [employer] generated this result transmit marcelle reference range : <=2.5. The reference range was not used to interpr et this result as aranza l/abnormal. [facility] [employer] [id number] 17:33:00 Test Item Value Reference Range Interpretation Comments CK MB Index (test 0.9 See_Comment [Automate d message] The code = CK MB Index) system w [employer] generated this result transmit marcelle reference range : <=2.5. The reference range was not used to interpr et this result as aranza l/abnormal. [employer] [id number] 17:33:00 Test Item Value Reference Range Interpretation Comments Troponin-I (test code no gt See_Comment [Auto mated message] The = Troponin-I) system which g enerated this result transmit marcelle reference range : <=0.40. The reference r melody was not used to interpr et this result as aranza l/abnormal. [facility] [id number] 17:33:00 Test Item Value Reference Range Interpretation Comments CK MB (test code = CK MB) 0.7 0.5-3.6 [facility] CleburneSchoooools.[facility] [id number] 17:33:00 Test Item Value Reference Range Interpretation Comments Total CK (test code = Total CK) 76 12-[address] [facility] [employer] [id number] 17:33:00 Test Item Value Reference Range Interpretation Comments eGFR (test code = eGFR) 90 [facility] LOPEE1442-00-71 17:33:00 Test Item Value Reference Range Interpretation Comments Globulin (test code = Globulin) 3.1 2.0-4.0 [facility] Cle[facility]neAppT[facility] [id number] 17:33:00 Test Item Value Reference Range Interpretation Comments Alk Phos (test code = Alk Phos) 128 39-136 [facility] Cle[facility]neAppT[facility] SJZLY7320-24-17 17:33:00 Test Item Value Reference Range Interpretation Comments Bili Total (test code = Bili Total) 0.3 0.2-1.3 [facility] CleburneAppTweak.[facility] [id number] 17:33:00 Test Item Value Reference Range Interpretation Comments A/G Ratio (test code = A/G Ratio) 1.1 0.7-1.6 [facility] Cle[facility]neAppT[facility] [id number] 17:33:00 Test Item Value Reference Range Interpretation Comments AGAP (test code = AGAP) 7.3 10.0-20.0 [facility] Cle[facility]neAppT[facility] [id number] 17:33:00 Test Item Value Reference Range Interpretation Comments B/C Ratio (test code = B/C Ratio) 12 6-25 [facility] Cle[facility]neAppT[facility] [id number] 17:33:00 Test Item Value Reference Range Interpretation Comments Creatinine Lvl (test code = Creatinine 0.8 0.5-1.4 Lvl) [facility]neApp[facility] [id number] 17:33:00 Test Item Value Reference Range Interpretation Comments Sodium Lvl (test code = Sodium Lvl) 140 135-145 [facility]2015-06-29 17:33:00 Test Item Value Reference Range Interpretation Comments Glucose Lvl (test code = Glucose Lvl) 88 70-99 [facility]2015-06-29 17:33:00 Test Item Value Reference Range Interpretation Comments Potassium Lvl (test code = Potassium 3.3 3.5-5.1 Lvl) [facility]2015-06-29 17:33:00 Test Item Value Reference Range Interpretation Comments Chloride Lvl (test code = Chloride Lvl) 106 95-109 [facility]2015-06-29 17:33:00 Test Item Value Reference Range Interpretation Comments BUN (test code = BUN) 10 7-22 [facility]2015-06-29 17:33:00 Test Item Value Reference Range Interpretation Comments AST (test code = AST) 15 See_Comment [Auto mated message] The system which ge nerated this result transmit marcelle reference range : <=37. The reference range was not used to interpr et this result as aranza l/abnormal. [facility]2015-06-29 17:33:00 Test Item Value Reference Range Interpretation Comments ALT (test code = ALT) 22 See_Comment [Auto mated message] The system which ge nerated this result transmit marcelle reference range : <=65. The reference range was not used to interpr et this result as aranza l/abnormal. [facility]2015-06-29 17:33:00 Test Item Value Reference Range Interpretation Comments Calcium Lvl (test code = Calcium Lvl) 8.9 8.5-10.5 [facility]2015-06-29 17:33:00 Test Item Value Reference Range Interpretation Comments CO2 (test code = CO2) 30 24-32 [facility]2015-06-29 17:33:00 Test Item Value Reference Range Interpretation Comments Total Protein (test code = Total 6.6 6.4-8.4 Protein) [facility]2015-06-29 17:33:00 Test Item Value Reference Range Interpretation Comments Albumin Lvl (test code = Albumin Lvl) 3.5 3.5-5.0 [facility]FN[facility] 17:33:00 Test Item Value Reference Range Interpretation Comments Segs (test code = Segs) 55.9 45.0-75.0 [facility] AliceKicdssfPXASKEJYWB5282-72-07 17:33:00 Test Item Value Reference Range Interpretation Comments Lymphocytes (test code = Lymphocytes) 28.7 20.0-40.0 [facility] AliceEbcwzovUWSVKPJHBK1036-88-52 17:33:00 Test Item Value Reference Range Interpretation Comments Segs-Bands # (test code = Segs-Bands #) 3.7 1.5-8.1 [facility] AliceCbjvrhiVQFHHGTKZT8915-06-94 17:33:00 Test Item Value Reference Range Interpretation Comments Basophils (test code = 0.7 See_Comment [Aut omated message] The Basophils) system which ge nerated this result tra nsmitted reference range : <=1.0. The reference r melody was not used to int erpret this result as normal/abnormal . [facility] [id number] 17:33:00 Test Item Value Reference Range Interpretation Comments Lymphocytes # (test code = Lymphocytes 1.9 1.0-5.5 #) [facility] AliceHfkrgjaBJJBENQODG7438-43-40 17:33:00 Test Item Value Reference Range Interpretation Comments Eosinophils (test code = 2.2 See_Comment [A utomated message] The Eosinophils) system which ge nerated this result tra nsmitted reference range : <=4.0. The reference r melody was not used to int erpret this result as normal/abnormal . [facility] AliceXjhwfchANOTKPKBPE8689-82-17 17:33:00 Test Item Value Reference Range Interpretation Comments Monocytes (test code = Monocytes) 12.5 2.0-12.0 [facility] AliceStxkfddWSMEMKFBVF0758-45-47 17:33:00 Test Item Value Reference Range Interpretation Comments Basophils # (test code 0.0 See_Comment [Aut omated message] The = Basophils #) system which generated this result tra nsmitted reference range : <=0.2. The reference r melody was not used to int erpret this result as normal/abnormal . [facility] AlicePsqwohkADUOILMPIK8357-15-07 17:33:00 Test Item Value Reference Range Interpretation Comments Eosinophils # (test code 0.1 See_Comment [A utomated message] The = Eosinophils #) system whic h generated this result tra nsmitted reference range : <=0.5. The reference r melody was not used to int erpret this result as normal/abnormal . [facility] AliceEkjabcdTJYFMGXCAE4962-81-59 17:33:00 Test Item Value Reference Range Interpretation Comments Monocytes # (test code 0.8 See_Comment [Aut omated message] The = Monocytes #) system which generated this result tra nsmitted reference range : <=0.8. The reference r melody was not used to int erpret this result as normal/abnormal . [facility] AliceWxoonyiWNTAMPPHOO3687-15-93 17:33:00 Test Item Value Reference Range Interpretation Comments MPV (test code = MPV) 8.8 7.4-10.4 [facility] AliceLlajoftQWZNNIICLZ4061-58-31 17:33:00 Test Item Value Reference Range Interpretation Comments MCH (test code = MCH) 28.1 pg 27.0-31.0 [facility] AliceMxhlqayACIOHTWEBV3883-28-36 17:33:00 Test Item Value Reference Range Interpretation Comments RDW (test code = RDW) 14.8 11.5-14.5 [facility] AliceGgbpvixXXJHHHJLQH3596-84-68 17:33:00 Test Item Value Reference Range Interpretation Comments MCHC (test code = MCHC) 32.2 32.0-36.0 [facility] AliceYujphhoUUNNIZQKYX0205-07-80 17:33:00 Test Item Value Reference Range Interpretation Comments Platelet (test code = Platelet) 207 133-450 [facility] AliceFgzzxtzFTACWNUCQM9461-76-64 17:33:00 Test Item Value Reference Range Interpretation Comments Hgb (test code = Hgb) 11.4 12.0-16.0 [facility] AliceGjklmhfCPDHPCERHB9168-34-28 17:33:00 Test Item Value Reference Range Interpretation Comments RBC (test code = RBC) 4.04 4.20-5.40 [facility] AliceXnaeavrGFPLLWKYEO1430-41-44 17:33:00 Test Item Value Reference Range Interpretation Comments WBC (test code = WBC) 6.5 3.7-10.4 [facility] AliceKjhxrawAROOJMXXHJ3056-00-66 17:33:00 Test Item Value Reference Range Interpretation Comments Hct (test code = Hct) 35.3 36.0-48.0 [facility] AliceTtvgmdjWJFBARMKRY7289-47-05 17:33:00 Test Item Value Reference Range Interpretation Comments MCV (test code = MCV) 87.2 80.0-98.0 [facility]2015-06-22 09:54:00 Test Item Value Reference Range Interpretation Comments BNP (test code = BNP) 6 [facility]2015-[facility] 09:54:00 Test Item Value Reference Range Interpretation Comments Troponin-I (test code no gt See_Comment [Auto mated message] The = Troponin-I) system which g enerated this result transmit marcelle reference range : <=0.40. The reference r melody was not used to interpr et this result as aranza l/abnormal. [facility] [employer] [id number] 09:54:00 Test Item Value Reference Range Interpretation Comments CK MB (test code = CK MB) 1.0 0.5-3.6 [facility]2015-06-22 09:54:00 Test Item Value Reference Range Interpretation Comments Total CK (test code = Total CK) 77 12-[address] [facility] [employer] [id number] 09:54:00 Test Item Value Reference Range Interpretation Comments Magnesium Lvl (test code = Magnesium 1.8 1.8-2.4 Lvl) [facility] [employer] [id number] 09:54:00 Test Item Value Reference Range Interpretation Comments eGFR (test code = eGFR) [address] [facility] [employer] [id number] 09:54:00 Test Item Value Reference Range Interpretation Comments Chloride Lvl (test code = Chloride Lvl) 111 95-[address] [facility] [employer] [id number] 09:54:00 Test Item Value Reference Range Interpretation Comments Potassium Lvl (test code = Potassium 3.8 3.5-5.1 Lvl) [facility] [employer] [id number] 09:54:00 Test Item Value Reference Range Interpretation Comments Sodium Lvl (test code = Sodium Lvl) 144 135-[address] [facility] [employer]2015-06-22 09:54:00 Test Item Value Reference Range Interpretation Comments Calcium Lvl (test code = Calcium Lvl) 8.6 8.5-10.[address] [facility] Motility Count2015-06-22 09:54:00 Test Item Value Reference Range Interpretation Comments AGAP (test code = AGAP) 11.8 10.0-20.[address] [facility] Motility Count2015-06-22 09:54:00 Test Item Value Reference Range Interpretation Comments CO2 (test code = CO2) 25 24-32 [facility] [id number] 09:54:00 Test Item Value Reference Range Interpretation Comments Creatinine Lvl (test code = Creatinine 0.6 0.5-1.4 Lvl) [facility] [id number] 09:54:00 Test Item Value Reference Range Interpretation Comments BUN (test code = BUN) 6 7-22 [facility] [id number] 09:54:00 Test Item Value Reference Range Interpretation Comments Glucose Lvl (test code = Glucose Lvl) 72 70-99 [facility]PmftwckFKKERBFGAF9082-52-61 09:54:00 Test Item Value Reference Range Interpretation Comments Hgb (test code = Hgb) 11.5 12.0-16.0 [facility] TylerGnmhsgfSUEXEC5634-12-72 09:54:00 Test Item Value Reference Range Interpretation Comments HDL (test code = HDL) 51 [facility] Cle[facility]neVpkoeecKLLVYW7972-74-50 09:54:00 Test Item Value Reference Range Interpretation Comments VLDL (test code = VLDL) 17 [facility] TylerKehgmboMEDLAM4250-51-23 09:54:00 Test Item Value Reference Range Interpretation Comments LDL (Calculated) (test code = LDL 96 (Calculated)) [facility] TylerEhtxnwyCASVOJ3388-03-08 09:54:00 Test Item Value Reference Range Interpretation Comments Chol (test code = Chol) 164 [facility] TylerAepjvxxIKDNGA2413-73-69 09:54:00 Test Item Value Reference Range Interpretation Comments Trig (test code = Trig) 84 [facility]neCvcpcaaVGJEAF0698-70-27 09:54:00 Test Item Value Reference Range Interpretation Comments CHD Risk (test code = CHD Risk) 3.22 3.90-5.80 [facility] UAHOVYRSJ7767-88-78 09:54:00 Test Item Value Reference Range Interpretation Comments Hgb A1C (test code = Hgb A1C) 5.8 [facility]ARD[facility] [id number] 04:20:00 Test Item Value Reference Range Interpretation Comments Troponin-I (test code no gt See_Comment [Auto mated message] The = Troponin-I) system which g enerated this result transmit marcelle reference range : <=0.40. The reference r melody was not used to interpr et this result as aranza l/abnormal. [facility] TylerVintedDIAC [id number] 04:20:00 Test Item Value Reference Range Interpretation Comments Total CK (test code = Total CK) 92 12-[address] [facility] [employer] HZRVEHK3244-79-19 04:20:00 Test Item Value Reference Range Interpretation Comments CK MB (test code = CK MB) 1.2 0.5-3.[address] [facility] [employer]annSp[place] TherapistAC [id number] 22:59:00 Test Item Value Reference Range Interpretation Comments CK MB (test code = CK MB) 1.2 0.5-3.[address] [facility] [employer] [id number] 22:59:00 Test Item Value Reference Range Interpretation Comments CK MB Index (test 1.3 See_Comment [Automate d message] The code = CK MB Index) system w [facility] generated this result transmit marcelle reference range : <=2.5. The reference range was not used to interpr et this result as aranza l/abnormal. [facility] [employer]2015-06-21 22:59:00 Test Item Value Reference Range Interpretation Comments Total CK (test code = Total CK) 93 12-[address] [facility] [employer] [id number] 22:59:00 Test Item Value Reference Range Interpretation Comments Troponin-I (test code no gt See_Comment [Auto mated message] The = Troponin-I) system which g enerated this result transmit marcelle reference range : <=0.40. The reference r melody was not used to interpr et this result as aranza l/abnormal. [facility] [employer]2015-06-21 22:59:00 Test Item Value Reference Range Interpretation Comments BNP (test code = BNP) [address] [facility] [employer] [id number] 22:59:00 Test Item Value Reference Range Interpretation Comments Lipase Lvl (test code = Lipase Lvl) 307 73-[address] [facility] [employer] [id number] 22:59:00 Test Item Value Reference Range Interpretation Comments A/G Ratio (test code = A/G Ratio) 1.0 0.7-1.[address] [facility] [employer] [id number] 22:59:00 Test Item Value Reference Range Interpretation Comments Globulin (test code = Globulin) 3.6 2.0-4.[address] [facility]2015-06-21 22:59:00 Test Item Value Reference Range Interpretation Comments Bili Indirect (test 0.4 See_Comment [Automa marcelle message] The code = Bili Indirect) system which generated this result tra nsmitted reference range : <=1.0. The reference r melody was not used to int erpret this result as normal/abnormal . [facility]2015-06-21 22:59:00 Test Item Value Reference Range Interpretation Comments Bili Direct (test code 0.1 See_Comment [Aut omated message] The = Bili Direct) system which generated this result tra nsmitted reference range : <=0.3. The reference r melody was not used to int erpret this result as aranza l/abnormal. [place] 768425-06-21 22:59:00 Test Item Value Reference Range Interpretation Comments Bili Total (test code = Bili Total) 0.5 0.2-1.3 [place] 768425-06-21 22:59:00 Test Item Value Reference Range Interpretation Comments Total Protein (test code = Total 7.3 6.4-8.4 Protein) [place] 768425-06-21 22:59:00 Test Item Value Reference Range Interpretation Comments Alk Phos (test code = Alk Phos) 150 39-136 [facility]2015-06-21 22:59:00 Test Item Value Reference Range Interpretation Comments AST (test code = AST) 15 See_Comment [Auto mated message] The system which ge nerated this result transmit marcelle reference range : <=37. The reference range was not used to interpr et this result as aranza l/abnormal. [facility]2015-06-21 22:59:00 Test Item Value Reference Range Interpretation Comments ALT (test code = ALT) 21 See_Comment [Auto mated message] The system which ge nerated this result transmit marcelle reference range : <=65. The reference range was not used to interpr et this result as aranza l/abnormal. [place] 768425-06-21 22:59:00 Test Item Value Reference Range Interpretation Comments Albumin Lvl (test code = Albumin Lvl) 3.7 3.5-5.0 [place] 768425-06-21 22:59:00 Test Item Value Reference Range Interpretation Comments Phosphorus (test code = Phosphorus) 3.1 2.5-4.5 [facility]2015-06-21 22:59:00 Test Item Value Reference Range Interpretation Comments Magnesium Lvl (test code = Magnesium 1.9 1.8-2.4 Lvl) [facility]2015-06-21 22:59:00 Test Item Value Reference Range Interpretation Comments eGFR (test code = eGFR) 90 [facility]2015-06-21 22:59:00 Test Item Value Reference Range Interpretation Comments Calcium Lvl (test code = Calcium Lvl) 9.0 8.5-10.5 [facility]2015-06-21 22:59:00 Test Item Value Reference Range Interpretation Comments CO2 (test code = CO2) 28 24-32 [facility]2015-06-21 22:59:00 Test Item Value Reference Range Interpretation Comments Chloride Lvl (test code = Chloride Lvl) 107 95-109 [facility]2015-06-21 22:59:00 Test Item Value Reference Range Interpretation Comments Creatinine Lvl (test code = Creatinine 0.8 0.5-1.4 Lvl) [facility]2015-06-21 22:59:00 Test Item Value Reference Range Interpretation Comments BUN (test code = BUN) 11 7-22 [facility]2015-06-21 22:59:00 Test Item Value Reference Range Interpretation Comments Potassium Lvl (test code = Potassium 3.5 3.5-5.1 Lvl) [facility]2015-06-21 22:59:00 Test Item Value Reference Range Interpretation Comments Sodium Lvl (test code = Sodium Lvl) 139 135-145 [facility]2015-06-21 22:59:00 Test Item Value Reference Range Interpretation Comments Glucose Lvl (test code = Glucose Lvl) 76 70-99 [facility]2015-06-21 22:59:00 Test Item Value Reference Range Interpretation Comments AGAP (test code = AGAP) 7.5 10.0-20.0 [facility] AliceDpvwsguSEDMCMVZTR0105-60-41 22:59:00 Test Item Value Reference Range Interpretation Comments Eosinophils (test code = 3.3 See_Comment [A utomated message] The Eosinophils) system which ge nerated this result tra nsmitted reference range : <=4.0. The reference r melody was not used to int erpret this result as normal/abnormal . [facility] AliceFrazeaoBBHZDWNQVK1098-24-28 22:59:00 Test Item Value Reference Range Interpretation Comments Monocytes (test code = Monocytes) 9.1 2.0-12.0 [facility] AliceRgruoarKXZIATBXDA1204-19-24 22:59:00 Test Item Value Reference Range Interpretation Comments Lymphocytes (test code = Lymphocytes) 28.9 20.0-40.0 [facility] AliceJfeqjcvVXDYYDRVZW5721-23-78 22:59:00 Test Item Value Reference Range Interpretation Comments Segs (test code = Segs) 58.3 45.0-75.0 [facility] AliceJatneqcOBPTWZZLDA2197-12-92 22:59:00 Test Item Value Reference Range Interpretation Comments Segs-Bands # (test code = Segs-Bands #) 3.8 1.5-8.1 [facility] AliceTrihhprXAOFNJEJDU9747-12-14 22:59:00 Test Item Value Reference Range Interpretation Comments Basophils (test code = 0.4 See_Comment [Aut omated message] The Basophils) system which ge nerated this result tra nsmitted reference range : <=1.0. The reference r melody was not used to int erpret this result as normal/abnormal . [facility] AliceVroglcyAYFQODGZAY4910-80-21 22:59:00 Test Item Value Reference Range Interpretation Comments Monocytes # (test code 0.6 See_Comment [Aut omated message] The = Monocytes #) system which generated this result tra nsmitted reference range : <=0.8. The reference r melody was not used to int erpret this result as normal/abnormal . [facility] AliceWrokmekBPGTOUEAEB8582-57-54 22:59:00 Test Item Value Reference Range Interpretation Comments Lymphocytes # (test code = Lymphocytes 1.9 1.0-5.5 #) [facility] AliceLehjfmmUZHJYWIJSD8071-45-45 22:59:00 Test Item Value Reference Range Interpretation Comments Eosinophils # (test code 0.2 See_Comment [A utomated message] The = Eosinophils #) system [facility] h generated this result tra nsmitted reference range : <=0.5. The reference r melody was not used to int erpret this result as normal/abnormal . [facility] AliceThhlrehFTEDCCPPWO0347-84-94 22:59:00 Test Item Value Reference Range Interpretation Comments Basophils # (test code 0.0 See_Comment [Aut omated message] The = Basophils #) system which generated this result tra nsmitted reference range : <=0.2. The reference r melody was not used to int erpret this result as normal/abnormal . [facility] AliceMbkospuNKYBNFHZZO3534-42-10 22:59:00 Test Item Value Reference Range Interpretation Comments PTT (test code = PTT) 36.0 s 22.9-35.8 [facility] AliceXbysjasJVDNSECMSL5120-68-29 22:59:00 Test Item Value Reference Range Interpretation Comments PT (test code = PT) 12.9 s 12.0-14.7 [facility] AliceKnyemleSHEUPJPHLC0914-38-04 22:59:00 Test Item Value Reference Range Interpretation Comments INR (test code = INR) 0.97 0.85-1.17 [facility] AliceMjrvmdkCYUUFUYJAL2434-06-90 22:59:00 Test Item Value Reference Range Interpretation Comments Platelet (test code = Platelet) 225 133-450 [facility] AliceDhmgbohTLBOYXAKLK1283-14-39 22:59:00 Test Item Value Reference Range Interpretation Comments RDW (test code = RDW) 14.7 11.5-14.5 [facility] AliceGhgekefDEPDDNOZBT7582-70-17 22:59:00 Test Item Value Reference Range Interpretation Comments MPV (test code = MPV) 8.7 7.4-10.4 [facility] AliceIqpbdqeHEJHEKFFEF7923-78-18 22:59:00 Test Item Value Reference Range Interpretation Comments MCHC (test code = MCHC) 32.6 32.0-36.0 [facility] AliceOcorbhjXCZLTSYMAZ6602-03-55 22:59:00 Test Item Value Reference Range Interpretation Comments Hct (test code = Hct) 39.5 36.0-48.0 [facility] AliceSesobicICHQMSAXTT1651-36-14 22:59:00 Test Item Value Reference Range Interpretation Comments MCV (test code = MCV) 87.3 80.0-98.0 [facility] AliceLdumoiyRTFHTARGNU3292-24-63 22:59:00 Test Item Value Reference Range Interpretation Comments MCH (test code = MCH) 28.4 pg 27.0-31.0 [facility] AliceWnknqyzSJGYALNQCY9566-24-89 22:59:00 Test Item Value Reference Range Interpretation Comments RBC (test code = RBC) 4.52 4.20-5.40 [facility]FfikyrxVDVTVWHAPK0527-97-49 22:59:00 Test Item Value Reference Range Interpretation Comments Hgb (test code = Hgb) 12.9 12.0-16.0 [facility] CleburneFfmkjloZTGWXVUDNN1059-46-42 22:59:00 Test Item Value Reference Range Interpretation Comments WBC (test code = WBC) 6.5 3.7-10.4 [facility]neApcbupyLZQYGYXFE0171-70-92 22:59:00 Test Item Value Reference Range Interpretation Comments Myoglobin (test code = Myoglobin) 46 25-72 [facility]neannCARDIAC IGOHSFA5765-01-05 21:17:00 Test Item Value Reference Range Interpretation Comments BNP (test code = BNP) [facility] BWQGNRH4090-63-06 21:17:00 Test Item Value Reference Range Interpretation Comments Troponin-I (test code no gt See_Comment [Auto mated message] The = Troponin-I) system which g enerated this result transmit marcelle reference range : <=0.40. The reference r melody was not used to interpr et this result as aranza l/abnormal. [facility] CleburneCHF TechnologiesCARVacatiaAC AWEGFQG3875-15-98 21:17:00 Test Item Value Reference Range Interpretation Comments Total CK (test code = Total CK) 80 12-191 [facility] SSMTAQM5127-41-62 21:17:00 Test Item Value Reference Range Interpretation Comments CK MB (test code = CK MB) no gt 0.5-3.6 [facility] FFCDWUD6237-40-09 21:17:00 Test Item Value Reference Range Interpretation Comments CK MB Index (test no gt See_Comment [Automate d message] The code = CK MB Index) system [facility] generated this result transmit marcelle reference range : <=2.5. The reference range was not used to interpr et this result as aranza l/abnormal. [facility]neannCHEM NZHOR7424-64-17 21:17:00 Test Item Value Reference Range Interpretation Comments eGFR (test code = eGFR) 112 [facility] CleburneCHF TechnologiesCHEM VMFGU9454-17-26 21:17:00 Test Item Value Reference Range Interpretation Comments Globulin (test code = Globulin) 3.6 2.0-4.0 [facility]neWashington [facility] CenterWREIY3930-53-47 21:17:00 Test Item Value Reference Range Interpretation Comments B/C Ratio (test code = B/C Ratio) 17 6-25 [facility]2014-04-26 21:17:00 Test Item Value Reference Range Interpretation Comments A/G Ratio (test code = A/G Ratio) 1.1 0.7-1.6 [place] 768424-04-26 21:17:00 Test Item Value Reference Range Interpretation Comments Glucose Lvl (test code = Glucose Lvl) 101 70-99 [facility]2014-04-26 21:17:00 Test Item Value Reference Range Interpretation Comments ALT (test code = ALT) 34 See_Comment [Auto mated message] The system which ge nerated this result transmit marcelle reference range : <=65. The reference range was not used to interpr et this result as aranza l/abnormal. [facility]2014-04-26 21:17:00 Test Item Value Reference Range Interpretation Comments Albumin Lvl (test code = Albumin Lvl) 3.9 3.5-5.0 [facility]2014-04-26 21:17:00 Test Item Value Reference Range Interpretation Comments Alk Phos (test code = Alk Phos) 89 39-136 [facility]2014-04-26 21:17:00 Test Item Value Reference Range Interpretation Comments AST (test code = AST) 22 See_Comment [Auto mated message] The system which ge nerated this result transmit marcelle reference range : <=37. The reference range was not used to interpr et this result as aranza l/abnormal. [facility]2014-04-26 21:17:00 Test Item Value Reference Range Interpretation Comments Bili Total (test code = Bili Total) 0.6 0.2-1.3 [place] 768424-04-26 21:17:00 Test Item Value Reference Range Interpretation Comments AGAP (test code = AGAP) 5.5 10.0-20.0 [facility]2014-04-26 21:17:00 Test Item Value Reference Range Interpretation Comments Creatinine Lvl (test code = Creatinine 0.6 0.5-1.4 Lvl) [facility]2014-04-26 21:17:00 Test Item Value Reference Range Interpretation Comments BUN (test code = BUN) 10 7-22 [facility]2014-04-26 21:17:00 Test Item Value Reference Range Interpretation Comments Potassium Lvl (test code = Potassium 3.5 3.5-5.1 Lvl) [facility] [id number] 21:17:00 Test Item Value Reference Range Interpretation Comments Sodium Lvl (test code = Sodium Lvl) 140 135-145 [facility]2014-04-26 21:17:00 Test Item Value Reference Range Interpretation Comments Chloride Lvl (test code = Chloride Lvl) 109 95-109 [facility]2014-04-26 21:17:00 Test Item Value Reference Range Interpretation Comments CO2 (test code = CO2) 29 24-32 [facility]2014-04-26 21:17:00 Test Item Value Reference Range Interpretation Comments Total Protein (test code = Total 7.5 6.4-8.4 Protein) [facility]2014-04-26 21:17:00 Test Item Value Reference Range Interpretation Comments Calcium Lvl (test code = Calcium Lvl) 9.2 8.5-10.5 [facility] DAZGQQ4251-73-83 21:17:00 Test Item Value Reference Range Interpretation Comments U Opiate Scr (test Negative *NA*(12/22/13 code = U Opiate Scr) 4:17 PM) [facility] [id number] 21:17:00 Test Item Value Reference Range Interpretation Comments U Phencyc Scr (test Negative *NA*(12/22/13 code = U Phencyc Scr) 4:17 PM) [facility]annDR[facility] IEZOXM9123-67-79 21:17:00 Test Item Value Reference Range Interpretation Comments UDS Note (test code = See Note 4*NA*(12/22/13 UDS Note) 4:17 PM) [facility]neannDRUG [id number] 21:17:00 Test Item Value Reference Range Interpretation Comments U Benzodia Scr (test Negative *NA*(12/22/13 code = U Benzodia Scr) 4:17 PM) [facility]neannDR[facility] UAOYVD8602-17-57 21:17:00 Test Item Value Reference Range Interpretation Comments U Keyla Scr (test code Negative *NA*(12/22/13 = U Keyla Scr) 4:17 PM) [facility] NHGHLH7814-43-68 21:17:00 Test Item Value Reference Range Interpretation Comments U Amph Scr (test code Negative *NA*(12/22/13 = U Amph Scr) 4:17 PM) [facility] XNBXOZ9441-66-13 21:17:00 Test Item Value Reference Range Interpretation Comments U Cannab Scr (test Negative *NA*(12/22/13 code = U Cannab Scr) 4:17 PM) [facility] DDADEZ9119-02-50 21:17:00 Test Item Value Reference Range Interpretation Comments U Cocaine Scr (test Negative *NA*(12/22/13 code = U Cocaine Scr) 4:17 PM) [facility] AliceCdbbeiwEBIMILEPPS8199-73-03 21:17:00 Test Item Value Reference Range Interpretation Comments PTT (test code = PTT) 35.2 s 22.9-35.8 [facility] AlicePfnaiaxACAFAMUATZ2909-41-83 21:17:00 Test Item Value Reference Range Interpretation Comments PT (test code = PT) 12.2 s 12.0-14.7 [facility] AliceVmyeirfRUHWCTZOHT4563-07-42 21:17:00 Test Item Value Reference Range Interpretation Comments INR (test code = INR) 0.91 0.85-1.17 [facility] AliceSpnxtvtUHHOGGQTPM4604-77-92 21:17:00 Test Item Value Reference Range Interpretation Comments MPV (test code = MPV) 8.4 7.4-10.4 [facility] AliceJteupnsEEGGWTFZXS7648-91-38 21:17:00 Test Item Value Reference Range Interpretation Comments MCH (test code = MCH) 29.2 pg 27.0-31.0 [facility] AliceCncuojtCQINEACEBU8263-02-44 21:17:00 Test Item Value Reference Range Interpretation Comments MCHC (test code = MCHC) 33.4 32.0-36.0 [facility]APKRWGGGUF9471[facility] 21:17:00 Test Item Value Reference Range Interpretation Comments RDW (test code = RDW) 14.5 11.5-14.5 [facility] AliceZdfgopdDICVNFTYPH3843-61-16 21:17:00 Test Item Value Reference Range Interpretation Comments Platelet (test code = Platelet) 219 133-450 [facility]KwjicqdCHINSJATPM9294-17-80 21:17:00 Test Item Value Reference Range Interpretation Comments Hct (test code = Hct) 41.6 36.0-48.0 [facility] AliceKntawygGIEYSLXULG4120-72-45 21:17:00 Test Item Value Reference Range Interpretation Comments MCV (test code = MCV) 87.5 81.0-99.0 [facility] AlicePyrnkboHTZXZUVYIO6109-68-76 21:17:00 Test Item Value Reference Range Interpretation Comments RBC (test code = RBC) 4.76 4.20-5.40 [facility] AliceRrosjirWNAWKEPYMO9296-08-11 21:17:00 Test Item Value Reference Range Interpretation Comments Hgb (test code = Hgb) 13.9 12.0-16.0 [facility] AliceOnhmsfrUDQXALTUYU9623-20-52 21:17:00 Test Item Value Reference Range Interpretation Comments WBC (test code = WBC) 8.5 3.7-10.4 [facility] AliceAxlbphcYXSAMEXLZS1062-43-02 21:17:00 Test Item Value Reference Range Interpretation Comments Eosinophils # (test code 0.2 See_Comment [A utomated message] The = Eosinophils #) system whic h generated this result tra nsmitted reference range : <=0.5. The reference r melody was not used to int erpret this result as normal/abnormal . [facility] AliceNvcpiolIMFSBCFQSS6049-19-46 21:17:00 Test Item Value Reference Range Interpretation Comments Basophils # (test code 0.0 See_Comment [Aut omated message] The = Basophils #) system which generated this result tra nsmitted reference range : <=0.2. The reference r melody was not used to int erpret this result as normal/abnormal . [facility] AliceZjruxjsHWOBYCFAIZ6669-21-13 21:17:00 Test Item Value Reference Range Interpretation Comments Segs (test code = Segs) 66.1 45.0-75.0 [facility] AliceMaokjywPWBKHIQIHT1547-42-96 21:17:00 Test Item Value Reference Range Interpretation Comments Monocytes (test code = Monocytes) 6.1 2.0-12.0 [facility] AliceKinwrlnMUQDQHTPOI6817-91-70 21:17:00 Test Item Value Reference Range Interpretation Comments Lymphocytes (test code = Lymphocytes) 25.0 20.0-40.0 [facility] AliceIpqbxnnZGRVCXIUYX3192-22-27 21:17:00 Test Item Value Reference Range Interpretation Comments Eosinophils (test code = 2.4 See_Comment [A utomated message] The Eosinophils) system which ge nerated this result tra nsmitted reference range : <=4.0. The reference r melody was not used to int erpret this result as normal/abnormal . [facility] AliceNpjygvrLFROSZAVHN1935-38-35 21:17:00 Test Item Value Reference Range Interpretation Comments Basophils (test code = 0.4 See_Comment [Aut omated message] The Basophils) system which ge nerated this result tra nsmitted reference range : <=1.0. The reference r melody was not used to int erpret this result as normal/abnormal . [facility] AliceNbexyivEZLGHNJHDD3107-17-23 21:17:00 Test Item Value Reference Range Interpretation Comments Lymphocytes # (test code = Lymphocytes 2.1 1.0-5.5 #) [facility] AliceSbgeyitUWOVHPSTMY8707-17-50 21:17:00 Test Item Value Reference Range Interpretation Comments Monocytes # (test code 0.5 See_Comment [Aut omated message] The = Monocytes #) system which generated this result tra nsmitted reference range : <=0.8. The reference r melody was not used to int erpret this result as normal/abnormal . [facility] AliceBuajcuoTLNIGOEFVG6310-40-57 21:17:00 Test Item Value Reference Range Interpretation Comments Segs-Bands # (test code = Segs-Bands #) 5.6 1.5-8.1 [facility] AND [id number] 21:17:00 Test Item Value Reference Range Interpretation Comments UA WBC (test code = UA WBC) 3-5 /HPF [facility] AND [id number] 21:17:00 Test Item Value Reference Range Interpretation Comments UA Sq Epi (test code = UA Sq Occasional /LPF Epi) [facility] AND [id number] 21:17:00 Test Item Value Reference Range Interpretation Comments UA Trichomonas (test code = UA Rare /HPF Trichomonas) [facility] AND [id number] 21:17:00 Test Item Value Reference Range Interpretation Comments UA Bacteria (test code = UA Few /HPF Bacteria) [facility] AND [id number] 21:17:00 Test Item Value Reference Range Interpretation Comments UA Blood (test code = Trace *ABN*(12/22/13 UA Blood) 4:17 PM) [facility] [id number] 21:17:00 Test Item Value Reference Range Interpretation Comments UA Bili (test code = Negative *NA*(12/22/13 UA Bili) 4:17 PM) [facility] KZVMU6865-17-13 21:17:00 Test Item Value Reference Range Interpretation Comments UA Urobilinogen (test code = UA 0.2 0.1-1.0 Urobilinogen) [facility] AND [id number] 21:17:00 Test Item Value Reference Range Interpretation Comments UA Leuk Est (test code Small *ABN*(12/22/13 = UA Leuk Est) 4:17 PM) [facility] [id number] 21:17:00 Test Item Value Reference Range Interpretation Comments UA Ketones (test code Negative *NA*(12/22/13 = UA Ketones) 4:17 PM) [facility] AND [id number] 21:17:00 Test Item Value Reference Range Interpretation Comments UA Glucose (test code Negative (12/22/13 4:17 = UA Glucose) PM) [facility] AND [id number] 21:17:00 Test Item Value Reference Range Interpretation Comments UA Turbidity (test code = Clear (12/22/13 4:17 UA Turbidity) PM) [facility] AND [id number] 21:17:00 Test Item Value Reference Range Interpretation Comments UA Color (test code = Yellow *NA*(12/22/13 UA Color) 4:17 PM) [facility] AND [id number] 21:17:00 Test Item Value Reference Range Interpretation Comments UA pH (test code = UA pH) 6.0 1 5.0-8.0 [facility] AND [id number] 21:17:00 Test Item Value Reference Range Interpretation Comments UA Spec Grav (test code = UA Spec 1.015 1 Grav) [facility] AND [id number] 21:17:00 Test Item Value Reference Range Interpretation Comments UA Protein (test code Negative (12/22/13 4:17 = UA Protein) PM) [facility] AND [id number] 21:17:00 Test Item Value Reference Range Interpretation Comments UA Nitrite (test code Negative (12/22/13 4:17 = UA Nitrite) PM) [facility] ONALL3746-08-82 15:55:31 Test Item Value Reference Range Interpretation Comments Phosphorus (test code = Phosphorus) 2.7 2.5-4.5 [facility]2014-04-21 15:55:31 Test Item Value Reference Range Interpretation Comments Magnesium Lvl (test code = Magnesium 2.2 1.8-2.4 Lvl) [facility]khyowiWBLZEPGZMBFW1889-21-38 15:55:31 Test Item Value Reference Range Interpretation Comments AGAP (test code = AGAP) 10.5 10.0-20.0 [facility] HospitalKcsbburLHDXIFMLSRBL5785-84-03 15:55:31 Test Item Value Reference Range Interpretation Comments eGFR (test code = eGFR) 91 [facility] HospitalEzbqfnxNRBMVAQSRLZO1165-48-65 15:55:31 Test Item Value Reference Range Interpretation Comments BUN (test code = BUN) 10 7-22 [facility] HospitalSpsbclfAEMLPAROEETF2112-24-90 15:55:31 Test Item Value Reference Range Interpretation Comments Creatinine Lvl (test code = Creatinine 0.8 0.5-1.4 Lvl) [facility] HospitalUkrmhqrNNKJVUPKOOSE4205-40-54 15:55:31 Test Item Value Reference Range Interpretation Comments Sodium Lvl (test code = Sodium Lvl) 142 135-145 [facility] HospitalHmohhnbIGJDVYRMXDJM4935-90-49 15:55:31 Test Item Value Reference Range Interpretation Comments Glucose Lvl (test code = Glucose Lvl) 87 70-99 [facility] HospitalLeqkspfGKXHUWWJFTBA0315-27-67 15:55:31 Test Item Value Reference Range Interpretation Comments CO2 (test code = CO2) 30 24-32 [facility] HospitalEuvlubsVFUVGCBFGMAS6269-30-99 15:55:31 Test Item Value Reference Range Interpretation Comments Potassium Lvl (test code = Potassium 4.5 3.5-5.1 Lvl) [facility] HospitalNjuvfzrABMIJLIBJLUH2014-52-78 15:55:31 Test Item Value Reference Range Interpretation Comments Chloride Lvl (test code = Chloride Lvl) 106 95-109 [facility] HospitalLpridyoSJKUDGJWJXMB1592-10-63 15:55:31 Test Item Value Reference Range Interpretation Comments Calcium Lvl (test code = Calcium Lvl) 8.6 8.5-10.5 [facility]qerOEWHEZKEFT5108-46-35 15:55:31 Test Item Value Reference Range Interpretation Comments INR (test code = INR) 0.97 0.85-1.17 [facility] AliceNkzzzstUKTIVFKYKG9768-82-44 15:55:31 Test Item Value Reference Range Interpretation Comments PTT (test code = PTT) 32.4 s 22.9-35.8 [facility] AliceUxqirimJOTMOZERZA1419-66-02 15:55:31 Test Item Value Reference Range Interpretation Comments PT (test code = PT) 12.8 s 12.0-14.7 [facility] AliceFokdlhqCRNKQRPXOQ2302-36-86 15:55:31 Test Item Value Reference Range Interpretation Comments Hgb (test code = Hgb) 13.7 12.0-16.0 [facility] AliceRykezzlFIDLFMBKHX2644-05-26 15:55:31 Test Item Value Reference Range Interpretation Comments RBC (test code = RBC) 4.88 4.20-5.40 [facility] AliceKlavqyzKSTNFIFUFM9194-49-43 15:55:31 Test Item Value Reference Range Interpretation Comments MCH (test code = MCH) 28.1 pg 27.0-31.0 [facility] AliceRtejdqbXEUGGZZXQI6546-74-47 15:55:31 Test Item Value Reference Range Interpretation Comments Hct (test code = Hct) 42.1 36.0-48.0 [facility] AliceCoxiytmKDMQUICSAW0586-70-78 15:55:31 Test Item Value Reference Range Interpretation Comments MCV (test code = MCV) 86.4 81.0-99.0 [facility] AliceHeyhoacYLXPWJBMJS4675-23-82 15:55:31 Test Item Value Reference Range Interpretation Comments RDW (test code = RDW) 14.3 11.5-14.5 [facility] AliceZynnaakCKSTBNUWCG6126-36-25 15:55:31 Test Item Value Reference Range Interpretation Comments MCHC (test code = MCHC) 32.5 32.0-36.0 [facility] AliceMwhqhavLKKLMZCJNN5506-22-28 15:55:31 Test Item Value Reference Range Interpretation Comments MPV (test code = MPV) 8.4 7.4-10.4 [facility] AliceVeqxgbdNVWDPLRSTD9290-27-32 15:55:31 Test Item Value Reference Range Interpretation Comments Platelet (test code = Platelet) 197 133-450 [facility] AliceGdtidpoMWHGNZFUPL6866-85-62 15:55:31 Test Item Value Reference Range Interpretation Comments WBC (test code = WBC) 7.2 3.7-10.4 [facility] AliceTahebgvXEJZMKQHTW6975-39-41 15:55:31 Test Item Value Reference Range Interpretation Comments Monocytes (test code = Monocytes) 10.7 2.0-12.0 [facility] AliceKpzchiyZGCYOXDEQO8007-70-75 15:55:31 Test Item Value Reference Range Interpretation Comments Lymphocytes (test code = Lymphocytes) 27.2 20.0-40.0 [facility] AliceNstsdqhJGFDQEGGOL3923-14-92 15:55:31 Test Item Value Reference Range Interpretation Comments Lymphocytes # (test code = Lymphocytes 1.9 1.0-5.5 #) [facility] AliceKlqflxrALPZOGCQLF8108-85-64 15:55:31 Test Item Value Reference Range Interpretation Comments Eosinophils (test code = 3.2 See_Comment [A utomated message] The Eosinophils) system which ge nerated this result tra nsmitted reference range : <=4.0. The reference r melody was not used to int erpret this result as normal/abnormal . [facility] AliceDiavljkHVBHJANXBH3801-19-96 15:55:31 Test Item Value Reference Range Interpretation Comments Basophils (test code = 0.6 See_Comment [Aut omated message] The Basophils) system which ge nerated this result tra nsmitted reference range : <=1.0. The reference r melody was not used to int erpret this result as normal/abnormal . [facility] AliceHlmcprkTGGVRTXZPP2803-94-14 15:55:31 Test Item Value Reference Range Interpretation Comments Segs-Bands # (test code = Segs-Bands #) 4.2 1.5-8.1 [facility] AliceFdmximtVERDDIETRP4998-18-54 15:55:31 Test Item Value Reference Range Interpretation Comments Eosinophils # (test code 0.2 See_Comment [A utomated message] The = Eosinophils #) system whic h generated this result tra nsmitted reference range : <=0.5. The reference r melody was not used to int erpret this result as normal/abnormal . [facility] AliceJjvtsvcLTDTDTAKKV5506-05-18 15:55:31 Test Item Value Reference Range Interpretation Comments Monocytes # (test code 0.8 See_Comment [Aut omated message] The = Monocytes #) system which generated this result tra nsmitted reference range : <=0.8. The reference r melody was not used to int erpret this result as normal/abnormal . [facility]fvcAMBNSZXOUN0142-10-96 15:55:31 Test Item Value Reference Range Interpretation Comments Segs (test code = Segs) 58.3 45.0-75.0 [facility] WUGLZYB3357-50-17 15:55:19 Test Item Value Reference Range Interpretation Comments Ca Norm WB (test code = Ca Norm WB) 1.11 1.05-1.25 [facility]PARATHYRO[facility] WBOFHMG7968-01-75 15:55:19 Test Item Value Reference Range Interpretation Comments Ca Ion WB (test code = Ca Ion WB) 1.17 1.05-1.25 [facility] QHFUFY9685-87-90 03:45:57 Test Item Value Reference Range Interpretation Comments U Benzodia Scr (test Negative *NA*(12/16/13 code = U Benzodia Scr) 10:45 PM) [facility] IWKAEU7581-24-86 03:45:57 Test Item Value Reference Range Interpretation Comments U Cannab Scr (test Positive *ABN*(12/16/13 code = U Cannab Scr) 10:45 PM) [facility] PMKHHF0362-12-64 03:45:57 Test Item Value Reference Range Interpretation Comments U Cocaine Scr (test Negative *NA*(12/16/13 code = U Cocaine Scr) 10:45 PM) [facility] KSBGDG1639-48-32 03:45:57 Test Item Value Reference Range Interpretation Comments U Phencyc Scr (test Negative *NA*(12/16/13 code = U Phencyc Scr) 10:45 PM) [facility] XNGEOV2350-92-31 03:45:57 Test Item Value Reference Range Interpretation Comments U Opiate Scr (test Negative *NA*(12/16/13 code = U Opiate Scr) 10:45 PM) [facility] AYRJOG0459-03-12 03:45:57 Test Item Value Reference Range Interpretation Comments UDS Note (test code = See Note 6(12/16/13 UDS Note) 10:45 PM) [facility] [id number] 03:45:57 Test Item Value Reference Range Interpretation Comments U Amph Scr (test code Negative *NA*(12/16/13 = U Amph Scr) 10:45 PM) [facility] VRNJSF3750-84-91 03:45:57 Test Item Value Reference Range Interpretation Comments U Keyla Scr (test code Negative *NA*(12/16/13 = U Keyla Scr) 10:45 PM) [facility] HermannCARDIAC DJBVPXO2158-59-68 03:45:00 Test Item Value Reference Range Interpretation Comments Total CK (test code = Total CK) 56 12-[address] [facility] HermannCARDIAC GEIHORI2458-25-83 03:45:00 Test Item Value Reference Range Interpretation Comments Troponin-T (test code no gt See_Comment [Auto mated message] The = Troponin-T) system which g enerated this result transmit marcelle reference range : <=0.100. The reference r melody was not used to interpr et this result as aranza l/abnormal. [facility] TLBRRQP2559-84-19 03:45:00 Test Item Value Reference Range Interpretation Comments Troponin-I (test code no gt See_Comment [Auto mated message] The = Troponin-I) system which g enerated this result transmit marcelle reference range : <=0.40. The reference r melody was not used to interpr et this result as aranza l/abnormal. [facility] OQQOHVP9868-58-70 03:45:00 Test Item Value Reference Range Interpretation Comments BNP (test code = BNP) [address] [facility] MjullvdVPXDCG2784-87-90 03:45:00 Test Item Value Reference Range Interpretation Comments VLDL (test code = VLDL) 18 [facility] Cle[facility]neDmswbqyAOJZHZ2073-94-96 03:45:00 Test Item Value Reference Range Interpretation Comments LDL (Calculated) (test code = LDL 88 (Calculated)) [facility] FtaqrlnKGZCDC7688-70-22 03:45:00 Test Item Value Reference Range Interpretation Comments Trig (test code = Trig) [address] [facility] LczhlomDYQFMR1087-97-61 03:45:00 Test Item Value Reference Range Interpretation Comments CHD Risk (test code = CHD Risk) 3.08 3.90-5.[address] [facility] AhrakevEVBDZK7919-66-11 03:45:00 Test Item Value Reference Range Interpretation Comments Chol (test code = Chol) 157 [facility] CleburneZkltriwLEHGHO3809-42-59 03:45:00 Test Item Value Reference Range Interpretation Comments HDL (test code = HDL) 51 [facility] HCKQCOLLQ4100-30-12 03:45:00 Test Item Value Reference Range Interpretation Comments Hgb A1C (test code = Hgb A1C) 5.3 [facility]neannTHYROID LZMYX0729-41-19 03:45:00 Test Item Value Reference Range Interpretation Comments TSH (test code = TSH) 0.870 0.360-3.740 [facility] KQJYQKD2878-94-82 22:09:00 Test Item Value Reference Range Interpretation Comments Total CK (test code = Total CK) 42 12-191 [facility] FNXCTJA0613-54-88 22:09:00 Test Item Value Reference Range Interpretation Comments Troponin-I (test code no gt See_Comment [Auto mated message] The = Troponin-I) system which g enerated this result transmit marcelle reference range : <=0.40. The reference r melody was not used to interpr et this result as aranza l/abnormal. [facility]neannCHEM ONRTI2361-50-50 19:30:00 Test Item Value Reference Range Interpretation Comments Lactic Acid Lvl (test code = Lactic 1.3 0.5-2.2 Acid Lvl) [facility] Cle[facility]neIafylpiBKKTDCFLOD0587-06-55 19:30:00 Test Item Value Reference Range Interpretation Comments PT (test code = PT) 11.8 s 12.0-14.7 [facility] TylerAkmkffoNWFQUEUJDY5641-38-16 19:30:00 Test Item Value Reference Range Interpretation Comments INR (test code = INR) 0.87 0.85-1.17 [facility] TylerCodkzczWLEWMVFONO4728-43-19 19:30:00 Test Item Value Reference Range Interpretation Comments PTT (test code = PTT) 31.2 s 22.9-35.8 [facility] TylerUcryahvERMEJMEDRQ1323-67-54 19:30:00 Test Item Value Reference Range Interpretation Comments RBC (test code = RBC) 4.69 4.20-5.40 [facility] TylerVytpfsdFOCHQRGMSI5570-68-64 19:30:00 Test Item Value Reference Range Interpretation Comments WBC (test code = WBC) 6.6 3.7-10.4 [facility]SMHRHPFIW1280[facility] 19:30:00 Test Item Value Reference Range Interpretation Comments Hct (test code = Hct) 40.5 36.0-48.0 [facility]OwpgotqUUVZIJVTXO1940-73-29 19:30:00 Test Item Value Reference Range Interpretation Comments MCV (test code = MCV) 86.4 81.0-99.0 [facility] AliceXghidixCAOARKOZJZ0840-42-31 19:30:00 Test Item Value Reference Range Interpretation Comments Hgb (test code = Hgb) 13.6 12.0-16.0 [facility] AliceMtohkicUYQJPNPNPS5846-39-45 19:30:00 Test Item Value Reference Range Interpretation Comments MCH (test code = MCH) 29.0 pg 27.0-31.0 [facility] AliceVotcxosAEHIOGLGLT4115-17-59 19:30:00 Test Item Value Reference Range Interpretation Comments MCHC (test code = MCHC) 33.6 32.0-36.0 [facility] AliceNezmcocDIHACYIHWL2392-97-29 19:30:00 Test Item Value Reference Range Interpretation Comments Platelet (test code = Platelet) 202 133-450 [facility] AliceXzvfwuiQXKQZDCENT7028-27-30 19:30:00 Test Item Value Reference Range Interpretation Comments RDW (test code = RDW) 13.4 11.5-14.5 [facility] AliceWdynehuWFIMTPWXGS0865-70-68 19:30:00 Test Item Value Reference Range Interpretation Comments MPV (test code = MPV) 8.6 7.4-10.4 [facility] AliceKfjqktdVANKIGENYV2834-85-65 19:30:00 Test Item Value Reference Range Interpretation Comments Monocytes # (test code 0.8 See_Comment [Aut omated message] The = Monocytes #) system which generated this result tra nsmitted reference range : <=0.8. The reference r melody was not used to int erpret this result as normal/abnormal . [facility] AliceIbfoalbKBJJOSNZIT2222-88-93 19:30:00 Test Item Value Reference Range Interpretation Comments Basophils # (test code 0.0 See_Comment [Aut omated message] The = Basophils #) system which generated this result tra nsmitted reference range : <=0.2. The reference r melody was not used to int erpret this result as normal/abnormal . [facility] AlicePdphbuhALGVECTSYM1004-85-69 19:30:00 Test Item Value Reference Range Interpretation Comments Monocytes (test code = Monocytes) 12.1 2.0-12.0 [facility] AliceNervanmEISPCRXQRJ5894-27-71 19:30:00 Test Item Value Reference Range Interpretation Comments Eosinophils (test code = 3.8 See_Comment [A utomated message] The Eosinophils) system which ge nerated this result tra nsmitted reference range : <=4.0. The reference r melody was not used to int erpret this result as normal/abnormal . [facility] AliceIhjzbpwMBUDWEGHYD9450-83-49 19:30:00 Test Item Value Reference Range Interpretation Comments Basophils (test code = 0.6 See_Comment [Aut omated message] The Basophils) system which ge nerated this result tra nsmitted reference range : <=1.0. The reference r melody was not used to int erpret this result as normal/abnormal . [facility] AliceAkutvaaEPOUBQEHSY7201-96-03 19:30:00 Test Item Value Reference Range Interpretation Comments Segs-Bands # (test code = Segs-Bands #) 3.9 1.5-8.1 [facility] AliceFuonkxuKZEZJBRCVQ2646-10-42 19:30:00 Test Item Value Reference Range Interpretation Comments Eosinophils # (test code 0.3 See_Comment [A utomated message] The = Eosinophils #) system whic h generated this result tra nsmitted reference range : <=0.5. The reference r melody was not used to int erpret this result as normal/abnormal . [facility] AliceLhdsqbxCODXQSMNOE3247-62-34 19:30:00 Test Item Value Reference Range Interpretation Comments Lymphocytes # (test code = Lymphocytes 1.6 1.0-5.5 #) [facility] AliceInjcvizHQOHPWWWKM0913-72-80 19:30:00 Test Item Value Reference Range Interpretation Comments Lymphocytes (test code = Lymphocytes) 25.0 20.0-40.0 [facility] AliceShnppgtPYQLMYDAOD0778-80-87 19:30:00 Test Item Value Reference Range Interpretation Comments Segs (test code = Segs) 58.5 45.0-75.0 [facility]2014-04-20 17:43:24 Test Item Value Reference Range Interpretation Comments eGFR (test code = eGFR) 79 [facility]2014-04-20 17:43:24 Test Item Value Reference Range Interpretation Comments Creatinine Lvl (test code = Creatinine 0.9 0.5-1.4 Lvl) [facility]2014-04-20 17:43:24 Test Item Value Reference Range Interpretation Comments Sodium Lvl (test code = Sodium Lvl) 142 135-145 [facility]2014-04-20 17:43:24 Test Item Value Reference Range Interpretation Comments Potassium Lvl (test code = Potassium 4.5 3.5-5.1 Lvl) [facility]2014-04-20 17:43:24 Test Item Value Reference Range Interpretation Comments Chloride Lvl (test code = Chloride Lvl) 107 95-109 [facility]2014-04-20 17:43:24 Test Item Value Reference Range Interpretation Comments Glucose Lvl (test code = Glucose Lvl) 78 70-99 [facility]2014-04-20 17:43:24 Test Item Value Reference Range Interpretation Comments BUN (test code = BUN) 11 - [facility]2014-04-20 17:43:24 Test Item Value Reference Range Interpretation Comments A/G Ratio (test code = A/G Ratio) 1.0 0.7-1.6 [facility]2014-04-20 17:43:24 Test Item Value Reference Range Interpretation Comments B/C Ratio (test code = B/C Ratio) 12 - [facility]2014-04-20 17:43:24 Test Item Value Reference Range Interpretation Comments Globulin (test code = Globulin) 3.6 2.0-4.0 [facility]2014-04-20 17:43:24 Test Item Value Reference Range Interpretation Comments AGAP (test code = AGAP) 16.5 10.0-20.0 [facility]2014-04-20 17:43:24 Test Item Value Reference Range Interpretation Comments Total Protein (test code = Total 7.2 6.4-8.4 Protein) [facility]2014-04-20 17:43:24 Test Item Value Reference Range Interpretation Comments AST (test code = AST) 19 See_Comment [Auto mated message] The system which ge nerated this result transmit marcelle reference range : <=37. The reference range was not used to interpr et this result as aranza l/abnormal. [facility]2014-04-20 17:43:24 Test Item Value Reference Range Interpretation Comments CO2 (test code = CO2) 23 24-32 [facility]2014-04-20 17:43:24 Test Item Value Reference Range Interpretation Comments Calcium Lvl (test code = Calcium Lvl) 9.2 8.5-10.[address] [facility] [employer] [id number] 17:43:24 Test Item Value Reference Range Interpretation Comments Bili Total (test code = Bili Total) 0.3 0.2-1.[address] [facility] [employer] PYQQA8842-05-21 17:43:24 Test Item Value Reference Range Interpretation Comments Albumin Lvl (test code = Albumin Lvl) 3.6 3.5-5.[address] [facility] [employer] AAJGS1746-70-21 17:43:24 Test Item Value Reference Range Interpretation Comments Alk Phos (test code = Alk Phos) 87 39-[address] [facility] [employer] [id number] 17:43:24 Test Item Value Reference Range Interpretation Comments ALT (test code = ALT) 31 See_Comment [Auto mated message] The system which ge nerated this result transmit marcelle reference range : <=65. The reference range was not used to interpr et this result as aranza l/abnormal. [facility] [employer]2014-04-20 17:43:00 Test Item Value Reference Range Interpretation Comments Total CK (test code = Total CK) 56 12-[address] [facility] [employer]2014-04-20 17:43:00 Test Item Value Reference Range Interpretation Comments Troponin-I (test code no gt See_Comment [Auto mated message] The = Troponin-I) system which g enerated this result transmit marcelle reference range : <=0.40. The reference r melody was not used to interpr et this result as aranza l/abnormal. [facility] [employer]2014-03-13 19:12:00 Test Item Value Reference Range Interpretation Comments Troponin-I (test code no gt See_Comment [Auto mated message] The = Troponin-I) system which g enerated this result transmit marcelle reference range : <=0.40. The reference r melody was not used to interpr et this result as aranza l/abnormal. [facility] [employer]2014-03-13 19:12:00 Test Item Value Reference Range Interpretation Comments Total CK (test code = Total CK) 49 12-[address] [facility] [employer]2014-03-13 19:12:00 Test Item Value Reference Range Interpretation Comments Troponin-T (test code no gt See_Comment [Auto mated message] The = Troponin-T) system which g enerated this result transmit marcelle reference range : <=0.100. The reference r melody was not used to interpr et this result as aranza l/abnormal. [facility]nvaihkSHQDFKHHM5542-81-06 19:12:00 Test Item Value Reference Range Interpretation Comments Myoglobin (test code = Myoglobin) 36 25-72 [facility] QGUCSLB6259-61-65 12:35:00 Test Item Value Reference Range Interpretation Comments Troponin-T (test code no gt See_Comment [Auto mated message] The = Troponin-T) system which g enerated this result transmit marcelle reference range : <=0.100. The reference r melody was not used to interpr et this result as aranza l/abnormal. [facility] FDJYHXI6122-04-45 12:35:00 Test Item Value Reference Range Interpretation Comments Total CK (test code = Total CK) 54 12-191 [facility] WTJRICL1899-53-32 12:35:00 Test Item Value Reference Range Interpretation Comments Troponin-I (test code no gt See_Comment [Auto mated message] The = Troponin-I) system which g enerated this result transmit marcelle reference range : <=0.40. The reference r melody was not used to interpr et this result as aranza l/abnormal. [facility] PTBXSRV2244-69-52 08:36:00 Test Item Value Reference Range Interpretation Comments Troponin-I (test code no gt See_Comment [Auto mated message] The = Troponin-I) system which g enerated this result transmit marcelle reference range : <=0.40. The reference r melody was not used to interpr et this result as aranza l/abnormal. [facility]HuciojyRLDLFAIUWGZD9169-28-05 08:36:00 Test Item Value Reference Range Interpretation Comments AGAP (test code = AGAP) 11.4 10.0-20.0 [facility]EnetrlsBJGBBTRLCEII7633-85-60 08:36:00 Test Item Value Reference Range Interpretation Comments eGFR (test code = eGFR) 69 [facility]QcfgmyzGVVZREHEXFUY8826-03-04 08:36:00 Test Item Value Reference Range Interpretation Comments Calcium Lvl (test code = Calcium Lvl) 9.2 8.5-10.5 [facility] HospitalRdqrhetLJASRMVKSSOW1422-48-33 08:36:00 Test Item Value Reference Range Interpretation Comments CO2 (test code = CO2) 27 24-32 [facility] HospitalVaqnmloRNOSORNFERJN1997-78-69 08:36:00 Test Item Value Reference Range Interpretation Comments Chloride Lvl (test code = Chloride Lvl) 105 95-109 [facility] HospitalBmgwykcLDYMUSBIGAVV2074-85-21 08:36:00 Test Item Value Reference Range Interpretation Comments Potassium Lvl (test code = Potassium 3.4 3.5-5.1 Lvl) [facility] HospitalHsngzmoKYGANGKLFAOU4312-48-69 08:36:00 Test Item Value Reference Range Interpretation Comments Sodium Lvl (test code = Sodium Lvl) 140 135-145 [facility] HospitalElosatpUJTIUOIUEWMD1859-23-40 08:36:00 Test Item Value Reference Range Interpretation Comments BUN (test code = BUN) 11 7-22 [facility] HospitalWwghstnAJNDRSEPXWMX3609-52-96 08:36:00 Test Item Value Reference Range Interpretation Comments Glucose Lvl (test code = Glucose Lvl) 84 70-99 [facility] HospitalGmdiosxTXQEWTWPOWRS5624-45-39 08:36:00 Test Item Value Reference Range Interpretation Comments Creatinine Lvl (test code = Creatinine 1.0 0.5-1.4 Lvl) [facility] AliceMsjonubDCBXSGQHEH3039-96-50 08:36:00 Test Item Value Reference Range Interpretation Comments Basophils # (test code 0.1 See_Comment [Aut omated message] The = Basophils #) system which generated this result tra nsmitted reference range : <=0.2. The reference r melody was not used to int erpret this result as normal/abnormal . [facility] AliceXxaotzjJOAIVDYFCH0331-92-42 08:36:00 Test Item Value Reference Range Interpretation Comments Eosinophils # (test code 0.2 See_Comment [A utomated message] The = Eosinophils #) system whic h generated this result tra nsmitted reference range : <=0.5. The reference r melody was not used to int erpret this result as normal/abnormal . [facility] AliceCeuqjjnGKPXTCZMNY1144-09-02 08:36:00 Test Item Value Reference Range Interpretation Comments Monocytes # (test code 0.8 See_Comment [Aut omated message] The = Monocytes #) system which generated this result tra nsmitted reference range : <=0.8. The reference r melody was not used to int erpret this result as normal/abnormal . [facility] AliceTgilqzcGYQDOXOLAJ5347-48-92 08:36:00 Test Item Value Reference Range Interpretation Comments Segs (test code = Segs) 72.5 45.0-75.0 [facility] AliceCswppesJKKWJFMWKW4482-97-70 08:36:00 Test Item Value Reference Range Interpretation Comments Lymphocytes (test code = Lymphocytes) 17.0 20.0-40.0 [facility] AliceFxdcmejWNFJCNBSBF3173-32-25 08:36:00 Test Item Value Reference Range Interpretation Comments Eosinophils (test code = 2.1 See_Comment [A utomated message] The Eosinophils) system which ge nerated this result tra nsmitted reference range : <=4.0. The reference r melody was not used to int erpret this result as normal/abnormal . [facility] AliceSktdawnYQBXGSLWNW6907-12-08 08:36:00 Test Item Value Reference Range Interpretation Comments Monocytes (test code = Monocytes) 7.8 2.0-12.0 [facility] AliceDxirjvmSUIEYUXFKJ4333-78-72 08:36:00 Test Item Value Reference Range Interpretation Comments Segs-Bands # (test code = Segs-Bands #) 7.6 1.5-8.1 [facility] AliceYpavygpQCJUCEBOKZ2000-61-24 08:36:00 Test Item Value Reference Range Interpretation Comments Basophils (test code = 0.6 See_Comment [Aut omated message] The Basophils) system which ge nerated this result tra nsmitted reference range : <=1.0. The reference r melody was not used to int erpret this result as normal/abnormal . [facility] AliceKhclksrQPSPBZUANA0024-49-80 08:36:00 Test Item Value Reference Range Interpretation Comments Lymphocytes # (test code = Lymphocytes 1.8 1.0-5.5 #) [facility] AliceSvzclxhDBEWPHMZID1687-24-08 08:36:00 Test Item Value Reference Range Interpretation Comments MPV (test code = MPV) 8.7 7.4-10.4 [facility] AliceWgstvluFADDWOCNFO9337-36-43 08:36:00 Test Item Value Reference Range Interpretation Comments RDW (test code = RDW) 14.0 11.5-14.5 [place] 735554-03-13 08:36:00 Test Item Value Reference Range Interpretation Comments Platelet (test code = Platelet) 191 133-450 [facility] AliceYjziwpeKYLOVIOCOY2083-90-81 08:36:00 Test Item Value Reference Range Interpretation Comments MCHC (test code = MCHC) 33.9 32.0-36.0 [id number] 08:36[facility]00 Test Item Value Reference Range Interpretation Comments RBC X 10x6 (test code = RBC X 10x6) 4.65 4.20-5.40 [facility] [id number] 08:36:00 Test Item Value Reference Range Interpretation Comments WBC X 10x3 (test code = WBC X 10x3) 10.6 3.7-10.4 [facility] [id number] 08:36:00 Test Item Value Reference Range Interpretation Comments MCH (test code = MCH) 29.3 pg 27.0-31.0 [facility] [id number] 08:36:00 Test Item Value Reference Range Interpretation Comments MCV (test code = MCV) 86.6 81.0-99.0 [facility] [id number] 08:36:00 Test Item Value Reference Range Interpretation Comments Hgb (test code = Hgb) 13.6 12.0-16.0 [facility] [id number] 08:36:00 Test Item Value Reference Range Interpretation Comments Hct (test code = Hct) 40.2 36.0-48.0 [facility]
[2021-09-25 12:16] LABS: BUN Blood Urea Nitrogen 7 mg/dL (7-18); Bicarbonate 25 mmol/L (21-32); Glucose Level 83 mg/dL (74-106); Potassium 3.8 mmol/L (3.5-5.1); Sodium Level 143 mmol/L (136-145)
[2021-09-25 12:20] LABS: Absolute Lymphocytes (CBC) 1.8 K/uL (0.7-4.9); Hematocrit 43.8 % (36.0-45.0); Lymphocytes % 46.1 % (15.3-44.8); MPV 8.5 fL (7.6-11.3); RBC Red Blood Cell Count 5.02 M/uL (3.86-4.86)
--- NOTE | 2021-09-25 13:14 | RAD REPORT ---
EXAM DESCRIPTION: CTSpine Lumbar Wo Con09/25/2021 12:54 pm CLINICAL HISTORY: Back pain. Prior lumbar surgery COMPARISON: July 2021 TECHNIQUE: Computed axial tomography lumbar spine was obtained with coronal and sagittal reconstruct ion. All CT scans are performed using dose optimization technique as appropriate and may include automated exposure control or mA/KV adjustment according to patient size. FINDINGS: Mild to moderate compression deformity involves the L2 vertebral body which is unchanged f rom the prior exam. There is no retropulsion of bone into the spinal canal. Laminectomies have been p erformed. Posterior fusion involves L4 through S1 with pedicular rods united by screws. Metallic cages have bee n placed. Mild anterior subluxation L4 on L5 unchanged. Minimal posterior subluxation L5 on S1 unchan ged. No acute fracture is seen. Artifact from the hardware does obscure evaluation of the mid to distal lumbar spine. Spondylosis L3-4 appears to result in the thecal sac measuring 7.5 millimeters IMPRESSION: . Postsurgical changes involving lumbar spine Mild anterior subluxation L4 on L5 and minimal posterior subluxation L5 on S1 unchanged Doph-zn-[id number] compression deformity L2 vertebral body unchanged Spondylosis L3-4 appears to result in mild to moderate central spinal stenosis
--- NOTE | 2021-09-25 13:25 | RAD REPORT ---
EXAM DESCRIPTION: CT - Chest Abdomen Pelvis W Cont - 09/25/2021 12:54 pm CLINICAL HISTORY: Chest and abdominal pain COMPARISON: July 2021 TECHNIQUE: Computed axial tomography of the chest, abdomen and pelvis was obtained. 100 cc Isovue-[address] scans are performed using dose optimization technique as appropriate and may include automated exposure control or mA/KV adjustment according to patient size. FINDINGS: Evaluation of the bowel is limited secondary to the lack of oral contrast. Mild right posterior basilar lung opacities probably positional atelectasis. Lungs are otherwise generally clear. No mediastinal or hilar lymphadenopathy. No pleural effusion. No pericardial effusion. The liver, spleen, pancreas, adrenals appear unremarkable. Small bilateral nonobstructing renal calculi. Atherosclerotic disease. Postsurgical changes involve the lumbar spine. High-grade stenosis celiac artery. Moderate amount of stool within the colon. Fibroid uterus. 6 x 2 centimeter complex cystic mass abuts the left aspect of the uterus. IMPRESSION: Small bilateral nonobstructing renal calculi High-grade stenosis celiac artery 6 x 2 centimeter complex cystic mass abuts the left aspect of the uterus. This may represent a benign complex ovarian cyst or ovarian cystadenoma.
--- NOTE | 2021-09-25 14:03 | EDPHYS ---
Physician Documentation [facility] Name: Winsome Yepez Age: 71 yrs Sex: Female : 1950 Arrival Date: 09/25/2021 Time: 11:06 Bed 19 Private MD: ED Physician Vick Mendieta HPI: 09/25 13:46 This 71 yrs old Black Female presents to ER via EMS with complaints of Back Pain. kdr 13:46 EMS was called to the patient's residence where she was complaining of chronic back kdr pain that has been ongoing for many months. In addition she has had chest discomfort about a week. She has been seen here multiple times for similar complaints. She denies any new injury or any new aspect of the current pain. Onset: The symptoms/episode began/occurred Chronically. Severity of symptoms: At their worst the symptoms were very mild mild just prior to arrival, in the emergency department the symptoms have improved. The patient has experienced similar episodes in the past, chronically. The patient has not recently seen a physician. Historical: - Allergies: 11:12 PENICILLINS; jl7 - Home Meds: 13:08 Albuterol Inhl [Active]; metronidazole Oral [Active]; eo2 - PMHx: 11:12 Hypertensive disorder; Asthma; Chronic back pain; jl7 - Immunization history:: Adult Immunizations not up to date. - Social history:: Smoking status: Patient reports the use of cigarette tobacco products, smokes one pack cigarettes per day. ROS: 13:46 Constitutional: Negative for fever, chills, and weight loss, Eyes: Negative for injury, kdr pain, redness, and discharge, Neck: Negative for injury, pain, and swelling, Cardiovascular: Negative for chest pain, palpitations, and edema, Respiratory: Negative for shortness of breath, cough, wheezing, and pleuritic chest pain, Abdomen/GI: Negative for abdominal pain, nausea, vomiting, diarrhea, and constipation, Back: Negative for injury and pain, MS/Extremity: Negative for injury and deformity, Skin: Negative for injury, rash, and discoloration, Neuro: Negative for headache, weakness, numbness, tingling, and seizure activity. Psych: Negative for depression, anxiety, suicide ideation, homicidal ideation, and hallucinations, Allergy/Immunology: Negative for hives, rash, and allergies, Endocrine: Negative for neck swelling, polydipsia, polyuria, polyphagia, and marked weight changes. Exam: 13:46 Constitutional: This is a well developed, well nourished patient who is awake, alert, kdr and in no acute distress. Head/Face: Normocephalic, atraumatic. Eyes: Pupils equal round and reactive to light, extra-ocular motions intact. Lids and lashes normal. Conjunctiva and sclera are non-icteric and not injected. Cornea within normal limits. Periorbital areas with no swelling, redness, or edema. Neck: Trachea midline, no thyromegaly or masses palpated, and no cervical lymphadenopathy. Supple, full range of motion without nuchal rigidity, or vertebral point tenderness. No Meningismus. Chest/axilla: Normal chest wall appearance and motion. Nontender with no deformity. No lesions are appreciated. Cardiovascular: Regular rate and rhythm with a normal S1 and S2. No gallops, murmurs, or rubs. Normal PMI, no JVD. No pulse deficits. Respiratory: Lungs have equal breath sounds bilaterally, clear to auscultation and percussion. No rales, rhonchi or wheezes noted. No increased work of breathing, no retractions or nasal flaring. Abdomen/GI: Soft, non-tender, with normal bowel sounds. No distension or tympany. No guarding or rebound. No evidence of tenderness throughout. Female : Normal external genitalia. Skin: Warm, dry with normal turgor. Normal color with no rashes, no lesions, and no evidence of cellulitis. MS/ Extremity: Pulses equal, no cyanosis. Neurovascular intact. Full, normal range of motion. Neuro: Awake and alert, GCS 15, oriented to person, place, time, and situation. Cranial nerves II-XII grossly intact. Motor strength 5/5 in all extremities. Sensory grossly intact. Cerebellar exam normal. Normal gait. Psych: Awake, alert, with orientation to person, place and time. Behavior, mood, and affect are within normal limits. Vital Signs: 11:09 BP 92 / 76; Pulse 61; Resp 15; Pulse Ox 99% on R/A; Weight 49.9 kg; Height 5 ft. 0 in. jl7 (152.40 cm); Pain 10/10; 11:25 BP 126 / 66 RA Supine; Pulse 63; Resp 17; Pulse Ox 100% ; eo2 12:00 BP 116 / 77; Pulse 76; Resp 18; Pulse Ox 99% ; eo2 13:00 BP 98 / 59; Pulse 68; Resp 16; Pulse Ox 99% ; Pain 10/10; eo2 14:15 BP 130 / 70; Pulse 68; Resp 17; Pulse Ox 98% ; Pain 10/10; eo2 11:09 Body Mass Index 21.48 (49.90 kg, 152.40 cm) jl7 MDM: 13:46 Data reviewed: vital signs, nurses notes, lab test result(s), radiologic studies. kdr Counseling: I had a detailed discussion with the patient and/or guardian regarding: the historical points, exam findings, and any diagnostic results supporting the discharge/admit diagnosis, lab results, radiology results, the need for outpatient follow up. ED course: Patient is completely nontoxic and not ill-appearing in any way while in the ED. 14:02 Patient medically screened. kdr 09/25 11:24 Order name: CBC with Diff; Complete Time: 13:08 kdr 09/25 11:24 Order name: Chem 7; Complete Time: 13:08 kdr 09/25 11:24 Order name: CT Chest, Abdomen, Pelvis - W/Contrast kdr 09/25 11:25 Order name: CT Lumbar Spine Wo Con; Complete Time: 13:20 kdr Administered Medications: 14:52 Drug: Tylenol 650 mg Route: PO; eo2 14:56 Follow up: Response: No adverse reaction eo2 Disposition Summary: 09/25/21 14:02 Discharge Ordered Location: Home kdr Problem: new kdr Symptoms: have improved kdr Condition: Stable kdr Diagnosis - Low back pain kdr Followup: kdr - With: Private Physician - When: 2 - 3 days - Reason: If symptoms return, Further diagnostic work-up, Recheck today's complaints, Continuance of care, Re-evaluation by your physician Discharge Instructions: - Discharge Summary Sheet kdr - Musculoskeletal Pain kdr - Chronic Back Pain, [id number] kdr Forms: - Medication Reconciliation Form kdr - Thank You Letter kdr Prescriptions: - Ibuprofen 600 mg Oral Tablet - take 1 tablet by ORAL route every 6 hours As needed take with food; 9 tablet; kdr Refills: 0, Product Selection Permitted - Medrol (Kian) 4 mg Oral Tablets, Dose Pack - take 1 tablet by ORAL route as directed - follow package instructions; 1 kdr packet; Refills: 0, Product Selection Permitted Signatures: Dispatcher MedHoVick Rose MD MD kdr Leal, Jahala RN RN jl7 Pham Stratton RN RN eo2
--- NOTE | 2021-09-25 14:03 | ER ---
Nurse's Notes [facility] Name: Winsome Yepez Age: 71 yrs Sex: Female : 1950 Arrival Date: 09/25/2021 Time: 11:06 Bed 19 Private MD: Diagnosis: Low back pain Presentation: 09/25 11:09 Chief complaint: EMS states: Toned out for chronic back pain and "non-cardiac" CP x 1 jl7 week that's worse with deep breaths. Coronavirus screen: At this time, the client does not indicate any symptoms associated with coronavirus-19. Ebola Screen: No symptoms or risks identified at this time. Initial Sepsis Screen: Does the patient meet any 2 criteria? No. Patient's initial sepsis screen is negative. Does the patient have a suspected source of infection? No. Patient's initial sepsis screen is negative. Risk Assessment: Do you want to hurt yourself or someone else? Patient reports no desire to harm self or others. Onset of symptoms is unknown. Care prior to arrival: None. 11:09 Method Of Arrival: EMS: [facility] 7 11:09 Acuity: CYNTHIA 3 jl7 Triage Assessment: 11:12 General: Appears in no apparent distress. uncomfortable, Behavior is calm, cooperative, jl7 appropriate for age. Pain: Complains of pain in low back area Pain currently is 10 out of 10 on a pain scale. Pain: Complains of pain in chest Pain does not radiate. Pain currently is 9 out of 10 on a pain scale. Is episodic, Aggravated by breathing. Musculoskeletal: Swelling absent. Historical: - Allergies: 11:12 PENICILLINS; jl7 - Home Meds: 13:08 Albuterol Inhl [Active]; metronidazole Oral [Active]; eo2 - PMHx: 11:12 Hypertensive disorder; Asthma; Chronic back pain; jl7 - Immunization history:: Adult Immunizations not up to date. - Social history:: Smoking status: Patient reports the use of cigarette tobacco products, smokes one pack cigarettes per day. Screenin:04 Abuse screen: Denies threats or abuse. Denies injuries from another. Nutritional eo2 screening: No deficits noted. Tuberculosis screening: No symptoms or risk factors identified. Fall Risk Ambulatory Aid- Crutches/Cane/Walker (15 pts). Assessment: 13:04 General: Appears in no apparent distress. Behavior is calm, cooperative. Pain: eo2 Complains of pain in chest and back and low back area. Neuro: Level of Consciousness is awake, alert, obeys commands, Oriented to person, place, time, situation, Denies dizziness, headache. Cardiovascular: Reports chest pain, Heart tones S1 S2 Capillary refill < 3 seconds Rhythm is sinus bradycardia. Respiratory: Airway is patent Trachea Respiratory effort is even, unlabored, Respiratory pattern is regular, Breath sounds are clear bilaterally. GI: Bowel sounds present X 4 quads. Reports upper abdominal pain, nausea. Musculoskeletal: Reports pain in low back area. 13:43 Reassessment: Pt's daughter Alma Page called, pt permitted info can be shared with eo2 her daughter, daughter can be reached on [phone]. 14:44 Reassessment: Pt requesting pain medication before departure, Received order for tyleno eo2 650mg PO once from Dr. Mendieta. 14:58 Reassessment: pt's daughter made aware her mother's been discharged, has a bus pass and eo2 her phone on her. Vital Signs: 11:09 BP 92 / 76; Pulse 61; Resp 15; Pulse Ox 99% on R/A; Weight 49.9 kg; Height 5 ft. 0 in. jl7 (152.40 cm); Pain 10/10; 11:25 BP 126 / 66 RA Supine; Pulse 63; Resp 17; Pulse Ox 100% ; eo2 12:00 BP 116 / 77; Pulse 76; Resp 18; Pulse Ox 99% ; eo2 13:00 BP 98 / 59; Pulse 68; Resp 16; Pulse Ox 99% ; Pain 10/10; eo2 14:15 BP 130 / 70; Pulse 68; Resp 17; Pulse Ox 98% ; Pain 10/10; eo2 11:09 Body Mass Index 21.48 (49.90 kg, 152.40 cm) jl7 Vitals: 13:00 Cardiac Rhythm Assessment Regular Sinus rhythm. eo2 ED Course: 11:06 Patient arrived in ED. eb 11:12 Triage completed. jl7 11:12 Arm band placed on right wrist. jl7 11:14 Vick Mendieta MD is Attending Physician. kdr 11:25 Pham Stratton RN is Primary Nurse. eo2 11:45 Missed attempt(s): 22 gauge in right antecubital area. Bleeding controlled, band aid dh3 applied, catheter tip intact. 11:55 Initial lab(s) drawn, by me, sent to lab. Inserted saline lock: 22 gauge in left dh3 forearm, using aseptic technique. Blood collected. 12:53 CT Chest, Abdomen, Pelvis - W/Contrast In Process Unspecified. EDMS 12:53 CT Lumbar Spine Wo Con In Process Unspecified. EDMS 13:00 manager monitoring on. Pulse ox on. NIBP on. Door closed. Noise minimized. Warm blanket eo2 given. 13:04 Patient has correct armband on for positive identification. eo2 13:04 No provider procedures requiring assistance completed. eo2 14:57 IV discontinued, intact. eo2 Administered Medications: 14:52 Drug: Tylenol 650 mg Route: PO; eo2 14:56 Follow up: Response: No adverse reaction eo2 Outcome: 14:02 Discharge ordered by . kdr 14:57 Discharged to home ambulatory, with rolling walker eo2 14:57 Discharged to pt provided bus pass 14:57 Condition: stable 14:57 Discharge instructions given to patient, Instructed on discharge instructions, follow up and referral plans. medication usage, Demonstrated understanding of instructions, follow-up care, medications, Prescriptions given X 2. 15:00 Patient left the ED. eo2 Signatures: Dispatcher [employer] EDMS Vick Mendieta MD MD kdr Leal, Jahala RN RN jl7 Shannon York 3 Lucy Davidson Eunice, RN RN eo2
[2021-09-25] MEDS ORDERED: ACETAMINOPHEN 325 MG TABLET ONE (14:49)
[2021-09-25 15:12] VITALS: BP 130/70; O2SAT 98
== END 2021-09-25 15:00 | disposition home or self-care (01) ==
LOC: ER 11:02
DX: M54.50 Low back pain, unspecified (principal); R07.9 Chest pain, unspecified; I10 Essential (primary) hypertension; F17.210 Nicotine dependence, cigarettes, uncomplicated
CPT/HCPCS: 85025; 80048; 36415; 72131; 71260; 74177; 99285; Q9967

== ENCOUNTER 2021-10-15 10:50 | Emergency (ER) | payer OTHER ==
--- OUTSIDE RECORDS SUMMARY | 2021-10-15 11:10 | XMS REPORT | Continuity of Care Document ---
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 [place] e 2 MG/ML / 00 aifenesin Guaifenesin 10-100mg/5 20 MG/ML ml 10 ml Oral oral SOLN Solution ud) (Same as: Robitussin DM) Simethicone No Notes: Eleazar hilton 02-17 (Same as: l 02:08: Mylicon) [place] 00 Bisacodyl No Notes: Memori a 02-17 (Same As: l 02:08: Dulcolax, [place] 00 Bisco-Lax) Ondansetron No Notes: Eleazar hilton 02-17 (Same as: l 02:08: Zofran) [place] 00 MEDICATION WASTE Product Size: 4 mg Product Wasted: ___ mg Nitroglycer No Notes: 1 Me moria in 0.02 02-17 gram is l MG/MG 02:06: approximat Kristopher n Topical 00 lv 1 inch Ointment of nitroglyce rin ointment (20 mg NTG per gram) (Same as:Nitro-B id) Nitroglycer No Notes: Eleazar hilton in 02-17 (Same l 02:06: as:Nitroqu [place] 00 ick, Nitrostat) "Do Not Crush" Sublingual tablet Acetaminoph No Notes: Do M emoria en 02-17 not exceed l 02:06: 4 gm/day. [place] 00 (Same as: Tylenol) Acetaminoph No Notes: Eleazar hilton en 325 MG / 02-17 (Same as: l Hydrocodone 02:06: [place] Caroline nn Bitartrate 00 325/5) Do 5 MG Oral not exceed Tablet 4gm/day of acetaminop hen. Morphine No Notes: Memoria 02-17 (Same l 02:06: as:MORPhin [place] 00 e Sulfate) Sodium No 1,000 mL, Memori a Chloride 02-17 Rate: 125 l 0.154 02:06: ml/hr, [place] MEQ/ML 00 Infuse Injectable over: 8 Solution [...] 02-17 (Same as: l Flush 00:52: BD Posiflush) Morphine No Notes: Memoria 02-17 (Same l 00:28: as:MORPhin [place] 00 e Sulfate) Nitroglycer No Notes: Eleazar hilton in 02-17 (Same l 00:28: as:Nitroqu ick, Nitrostat) "Do Not Crush" Sublingual tablet Aspirin No Notes: (Do Eleazar hilton 02-16 Not Crush) l 22:49: Do not crush or chew. Ondansetron No Notes: Eleazar hilton - (Same as: l 21:22: Zofran) Morphine No Notes: Memoria - (Same l 21:22: as:MORPhin [place] 00 e Sulfate) Aspirin / No Notes: Memori a Calcium - Take with l Carbonate 21:22: food. Mac[place] 00 Aspirin 81 Yes 81 mg = 1 Me moria MG Enteric - tab, PO, l Coated 20:08: Daily, # [place] Tablet 00 90 tab, 0 Refill(s) metoprolol Yes 12.5 mg = Me moria tartrate 25 4-21 0.5 tab, l mg oral 20:08: PO, BID, # Herm eugenie tablet 00 90 tab, 0 Refill(s) clopidogrel Yes 75 mg = 1 M emoria 75 mg oral 4-21 tab, PO, l tablet 20:08: Daily, # [place] 00 90 tab, 0 Refill(s) atorvastati Yes 20 mg = 1 M emoria n 20 mg 4-21 tab, PO, l oral tablet 20:08: Bedtime, # [place] 00 90 tab, 0 Refill(s) metoprolol No [...] 0.9% - (Same as: l 14:00: BD [place] 00 Posiflush) Adenosine No 41.6178 Memor ia 4-21 mg, Route: l 03:42: IVP, ONCE, Dosing Weight 49.545, kg, Priority: Routine, Start date: 12/16/13 22:42:00, Stop date: 12/16/13 22:42:00 atorvastati No Notes: Eleazar hilton n -21 (Same As: l 03:28: Lipitor) Saline No Notes: Memoria Flush 0.9% -21 (Same as: l 03:25: BD [place] 00 Posiflush) Nitroglycer No Notes: Eleazar hilton in 12-17 (Same l 03:25: as:Nitroqu [place] 00 ick, Nitrostat) "Do Not Crush" Sublingual tablet atorvastati No 20 mg = 1 M emoria n 20 mg 4-21 tab, PO, l oral tablet 01:48: Bedtime, # [place] 00 30 tab, 0 Refill(s) clopidogrel No [...] date: 12/16/13 14:36:00 GI cocktail No Notes: Eleazra hilton 4-20 G.I. l 17:54: Cocktail = [place] 00 antacid with simethicon e 22.5 mL [...] tab, PO, l Tablet 20:52: Daily, # [place] [Plavix] 00 30 tab, 0 Refill(s) atorvastati Yes 20 mg = 1 M emoria n 20 mg 3-13 tab, PO, l oral tablet 20:52: Bedtime, # [place] 00 30 tab, 0 Refill(s) Aspirin 81 Yes 81 mg = 1 Me moria MG Chewable 3-13 tab, PO, l Tablet 20:52: Daily, # [place] 00 60 tab, 0 Refill(s) Plavix No 75 mg, 1 Memoria 3-13 tab, l 14:00: Route: PO, [place] 00 Drug form: TAB, Daily, Dosing Weight [...] date: 12/07/13 9:00:00( me as: Lovenox) Tylenol 2013- No 650 mg, 2 Memor ia - tab, l 13:15: Route: PO, Drug form: TAB, Q4H, Dosing Weight 63.636, kg, PRN Pain, Start date: 11/08/13 8:15:00, Duration: 30 day, Stop date: 12/08/13 8:14:00Do not exceed 4 gm/day. (Same as: Tylenol) Saline 2013-0 No 5 ml, Memoria Flush 0.9% 11-08 Route: l 12:06: MISC, Drug Form: INJ, Dosing Weight 63.636, kg, PRN, PRN Line Flush, Start date: 11/08/13 7:06:00, Duration: 30 day, Stop date: 12/08/13 7:05:00([facility] as: BD Posiflush) Nitroglycer 2013-0 No 0.4 mg, 1 M emoria in 3-13 tab, l 12:06: Route: SL, Drug form: TAB, Q5Min, Dosing Weight 63.636, kg, PRN Chest Pain, Start date: 11/08/13 7:06:00, Duration: 30 day, Stop date: 12/08/13 7:01:00([facility] as:Nitroqu ick, Nitrostat) "Do Not Crush" [...] 2020-10-15 10:45:00 114 mm[Hg] [facility] of [facility] Diastolic blood 2020-10-15 10:45:00 80 [facility]Hg[facility] 2020-10-15 10:45:00 76 /min [facility] Body temperature 2020-10-15 10:45:00 37.44 [facility] 2020-10-15 10:45:00 18 /min [facility] Oxygen saturation in 2020-10-15 10:45:00 95 /min [facility] Arterial blood by [facility] Pulse oximetry Branch Body height 2020-10-15 07:57:00 152.4 cm [facility] Body weight 2020-10-15 07:57:00 40.824 kg [facility] BMI 2020-10-15 07:57:00 17.58 kg/m2 [facility] Systolic blood 2020-10-15 10:45:00 114 mm[Hg] Univer [facility] of [facility] Diastolic blood 2020-10-15 10:45:00 80 mm[Hg] Unive rsity of [facility] Heart rate 2020-10-15 10:45:00 76 /min [facility] Body temperature 2020-10-15 10:45:00 37.44 Meaghan [facility] Respiratory rate 2020-10-15 10:45:00 18 /min [facility] Oxygen saturation in 2020-10-15 10:45:00 95 /min [facility] Arterial blood by [facility] Pulse oximetry Branch Body height 2020-10-15 07:57:00 152.4 cm [facility] Body weight 2020-10-15 07:57:00 40.824 kg [facility] BMI 2020-10-15 07:57:00 17.58 kg/m2 [facility] Systolic (mm Hg) 2017-01-19 23:16:00 Eleazar rial Maciej Diastolic (mm Hg) 2017-01-19 23:16:00 Mem orial [place] Respitory Rate 2017-01-19 23:16:00 Memori al [place] Systolic (mm Hg) 2017-01-19 22:28:00 Eleazar rial [place] Diastolic (mm Hg) 2017-01-19 22:28:00 Mem orial [place] Respitory Rate 2017-01-19 22:28:00 Memori al [place] Respitory Rate 2017-01-19 21:00:00 Memori al [place] Systolic (mm Hg) 2017-01-19 20:00:00 Eleazar rial [place] Diastolic (mm Hg) 2017-01-19 20:00:00 Mem orial [place] Weight 2017-01-19 17:23:00 [facility] [place] BMI Calculated 2017-01-19 17:23:00 Memori al [place] Height 2017-01-19 17:23:00 152.4 cm [facility] [place] Temperature Oral (F) 2017-01-19 17:23:00 97.0 F [facility] Heart Rate 2017-01-19 17:23:00 [facility] [place] Systolic (mm Hg) 2017-01-17 02:10:00 Eleazar rial [place] Diastolic (mm Hg) 2017-01-17 02:10:00 Mem orial [place] Respitory Rate 2017-01-17 02:10:00 Memori al [place] Systolic (mm Hg) 2017-01-17 01:21:00 Eleazar rial [place] Diastolic (mm Hg) 2017-01-17 01:21:00 Mem orial [place] Respitory Rate 2017-01-17 01:21:00 Memori al [place] Temperature Oral (F) 2017-01-17 01:21:00 98.1 F [facility] [place] Systolic (mm Hg) 2017-01-17 00:28:00 Eleazar rial [place] Diastolic (mm Hg) 2017-01-17 00:28:00 Mem orial [place] Respitory Rate 2017-01-17 00:28:00 Memori al [place] Heart Rate 2017-01-16 23:24:00 [facility] [place] Temperature Oral (F) 2017-01-16 23:24:00 98 F [facility] [place] Weight 2017-01-16 23:24:00 [facility] [place] Heart Rate 2016-11-29 03:44:00 [facility] [place] Systolic (mm Hg) 2016-11-29 03:44:00 Eleazar rial [place] Diastolic (mm Hg) 2016-11-29 03:44:00 Mem orial [place] Respitory Rate 2016-11-29 03:44:00 Memori al [place] Temperature Oral (F) 2016-11-29 03:44:00 98.7 F [facility] [place] Heart Rate 2016-11-29 03:24:00 [facility] [place] Respitory Rate 2016-11-29 03:24:00 Memori al [place] Systolic (mm Hg) 2016-11-29 03:24:00 Eleazar rial [place] Diastolic (mm Hg) 2016-11-29 03:24:00 Mem orial [place] Heart Rate 2016-11-29 02:51:00 [facility] [place] Respitory Rate 2016-11-29 02:51:00 Memori al [place] Systolic (mm Hg) 2016-11-29 02:51:00 Eleazar rial [place] Diastolic (mm Hg) 2016-11-29 02:51:00 Mem orial [place] Weight 2016-11-29 00:21:00 [facility] [place] BMI Calculated 2016-11-29 00:21:00 Memori al [place] Height 2016-11-29 00:21:00 152.4 cm [facility] [place] Temperature Oral (F) 2016-11-29 00:21:00 98.6 F [facility] [place] Respitory Rate 2016-11-07 02:47:00 Memori al [place] Heart Rate 2016-11-07 02:47:00 [facility] [place] Temperature Oral (F) 2016-11-07 02:47:00 98.2 F [facility] [place] Systolic (mm Hg) 2016-11-07 02:47:00 Eleazar rial [place] Diastolic (mm Hg) 2016-11-07 02:47:00 Mem orial [place] Heart Rate 2016-11-07 02:22:00 [facility] [place] Respitory Rate 2016-11-07 02:22:00 Memori al [place] Systolic (mm Hg) 2016-11-07 02:22:00 Eleazar rial [place] Diastolic (mm Hg) 2016-11-07 02:22:00 Mem orial [place] Weight 2016-11-06 23:37:00 [facility] [place] Heart Rate 2016-11-06 23:37:00 [facility] [place] Temperature Oral (F) 2016-11-06 23:37:00 98.3 F [facility] [place] Respitory Rate 2016-11-06 23:37:00 Memori al [place] Systolic (mm Hg) 2016-11-06 23:37:00 Eleazar rial [place] Diastolic (mm Hg) 2016-11-06 23:37:00 Mem orial [place] Respitory Rate 2016-10-11 18:24:00 Memori al [place] Temperature Oral (F) 2016-10-11 18:24:00 97.9 F [facility] [place] Systolic (mm Hg) 2016-10-11 18:24:00 Eleazar rial [place] Diastolic (mm Hg) 2016-10-11 18:24:00 Mem orial [place] Heart Rate 2016-10-11 18:24:00 [facility] [place] Heart Rate 2016-10-11 13:53:00 [facility] [place] Systolic (mm Hg) 2016-10-11 13:53:00 Eleazar rial [place] Diastolic (mm Hg) 2016-10-11 13:53:00 Mem orial [place] Temperature Oral (F) 2016-10-11 13:53:00 98.1 F [facility] [place] Temperature Oral (F) 2016-10-11 10:16:00 99.0 F [facility] [place] Respitory Rate 2016-10-11 10:16:00 Memori al [place] Heart Rate 2016-10-11 10:16:00 [facility] [place] Systolic (mm Hg) 2016-10-11 10:16:00 Eleazar rial [place] Diastolic (mm Hg) 2016-10-11 10:16:00 Mem orial [place] Weight 2016-10-11 06:46:00 [facility] [place] BMI Calculated 2016-10-11 06:46:00 Memori al [place] Height 2016-10-11 06:46:00 152.4 cm [facility] [place] Respitory Rate 2016-10-11 06:39:00 Memori al [place] Height 2016-10-10 17:48:00 152.4 cm [facility] [place] BMI Calculated 2016-10-10 17:48:00 Memori al [place] Weight 2016-10-10 17:48:00 [facility] [place] BMI Calculated 2016-09-15 04:26:00 Memori al [place] Weight 2016-09-15 04:26:00 [facility] [place] Height 2016-09-15 04:26:00 152.4 cm [facility] [place] Systolic (mm Hg) 2016-09-15 04:26:00 Eleazar rial [place] Diastolic (mm Hg) 2016-09-15 04:26:00 Mem orial [place] Respitory Rate 2016-09-15 04:26:00 Memori al [place] Heart Rate 2016-09-15 04:26:00 [facility] [place] Temperature Oral (F) 2016-09-15 04:26:00 98.5 F [facility] [place] Respitory Rate 2016-04-14 06:22:00 Memori al [place] Temperature Oral (F) 2016-04-14 06:22:00 98.7 F [facility] [place] Systolic (mm Hg) 2016-04-14 06:22:00 Eleazar rial [place] Diastolic (mm Hg) 2016-04-14 06:22:00 Mem orial [place] Heart Rate 2016-04-14 06:22:00 [facility] [place] BMI Calculated 2016-04-14 02:12:00 Memori al [place] Weight 2016-04-14 02:12:00 [facility] [place] Temperature Oral (F) 2016-04-14 02:12:00 99.2 F [facility] [place] Height 2016-04-14 02:12:00 152.4 cm [facility] [place] Respitory Rate 2016-04-14 02:12:00 Memori al [place] Systolic (mm Hg) 2016-04-14 02:12:00 Eleazar rial [place] Diastolic (mm Hg) 2016-04-14 02:12:00 Mem orial [place] Heart Rate 2016-04-14 02:12:00 [facility] [place] Temperature Oral (F) 2016-03-12 17:00:00 97.8 F [facility] [place] Heart Rate 2016-03-12 17:00:00 [facility] [place] Respitory Rate 2016-03-12 17:00:00 Memori al [place] Systolic (mm Hg) 2016-03-12 17:00:00 Eleazar rial [place] Diastolic (mm Hg) 2016-03-12 17:00:00 Mem orial [place] Respitory Rate 2016-03-12 12:54:00 Memori al [place] Systolic (mm Hg) 2016-03-12 12:30:00 Eleazar rial [place] Diastolic (mm Hg) 2016-03-12 12:30:00 Mem orial [place] Respitory Rate 2016-03-12 12:30:00 Memori al [place] Heart Rate 2016-03-12 12:30:00 [facility] [place] Temperature Oral (F) 2016-03-12 12:30:00 98.2 F [facility] [place] Temperature Oral (F) 2016-03-12 10:26:00 98.0 F [facility] [place] Heart Rate 2016-03-12 10:26:00 [facility] [place] Systolic (mm Hg) 2016-03-12 10:26:00 Eleazar rial [place] Diastolic (mm Hg) 2016-03-12 10:26:00 Mem orial [place] Height 2016-03-11 19:45:00 152.4 cm [facility] [place] BMI Calculated 2016-03-11 19:45:00 Memori al [place] Weight 2016-03-11 19:45:00 [facility] [place] Respitory Rate 2016-03-06 01:44:00 Memori al [place] Systolic (mm Hg) 2016-03-06 01:44:00 Eleazar rial [place] Diastolic (mm Hg) 2016-03-06 01:44:00 Mem orial [place] Heart Rate 2016-03-06 01:44:00 [facility] [place] Temperature Oral (F) 2016-03-06 01:44:00 98.1 F [facility] [place] BMI Calculated 2016-03-05 21:55:00 Memori al [place] Weight 2016-03-05 21:55:00 [facility] [place] Systolic (mm Hg) 2016-03-05 21:55:00 Eleazar rial [place] Diastolic (mm Hg) 2016-03-05 21:55:00 Mem orial [place] Heart Rate 2016-03-05 21:55:00 [facility] [place] Height 2016-03-05 21:55:00 152.4 cm [facility] [place] Temperature Oral (F) 2016-03-05 21:55:00 98.3 F [facility] [place] Respitory Rate 2016-03-05 21:55:00 Memori al [place] Respitory Rate 2016-03-01 01:23:00 Memori al [place] Systolic (mm Hg) 2016-03-01 01:23:00 Eleazar rial [place] Diastolic (mm Hg) 2016-03-01 01:23:00 Mem orial [place] Temperature Oral (F) 2016-03-01 01:23:00 98.2 F [facility] [place] Heart Rate 2016-03-01 01:23:00 [facility] [place] Respitory Rate 2016-02-29 23:25:00 Memori al [place] Temperature Oral (F) 2016-02-29 22:27:00 98.3 F [facility] [place] Heart Rate 2016-02-29 22:27:00 [facility] [place] Respitory Rate 2016-02-29 22:27:00 Memori al [place] Systolic (mm Hg) 2016-02-29 22:27:00 Eleazar rial [place] Diastolic (mm Hg) 2016-02-29 22:27:00 Mem orial [place] Respitory Rate 2015-09-05 14:47:00 Memori al [place] Systolic (mm Hg) 2015-09-05 14:47:00 Eleazar rial [place] Diastolic (mm Hg) 2015-09-05 14:47:00 Mem orial [place] Heart Rate 2015-09-05 14:47:00 [facility] [place] Weight 2015-09-05 11:00:00 [facility] [place] Systolic (mm Hg) 2015-09-05 10:00:00 Eleazar rial [place] Diastolic (mm Hg) 2015-09-05 10:00:00 Mem orial [place] Respitory Rate 2015-09-05 10:00:00 Memori al [place] Heart Rate 2015-09-05 10:00:00 [facility] [place] Respitory Rate 2015-09-05 06:00:00 Memori al [place] Systolic (mm Hg) 2015-09-05 06:00:00 Eleazar rial [place] Diastolic (mm Hg) 2015-09-05 06:00:00 Mem orial [place] Heart Rate 2015-09-05 06:00:00 [facility] [place] Weight 2015-09-04 11:00:00 [facility] [place] Weight 2015-09-04 09:15:00 [facility] [place] BMI Calculated 2015-09-04 09:15:00 Memori al [place] Height 2015-09-04 09:15:00 160.02 cm [facility] [place] Temperature Oral (F) 2015-09-04 09:06:00 98.3 F [facility] [place] Height 2015-09-04 03:35:00 152.4 cm [facility] [place] BMI Calculated 2015-09-04 03:35:00 Memori al [place] Temperature Oral (F) 2015-09-04 03:35:00 98.7 F [facility] [place] Systolic (mm Hg) 2015-07-16 13:56:00 Eleazar rial [place] Diastolic (mm Hg) 2015-07-16 13:56:00 Mem orial [place] Respitory Rate 2015-07-16 13:56:00 Memori al [place] Heart Rate 2015-07-16 13:56:00 [facility] [place] Temperature Oral (F) 2015-07-16 13:56:00 98.0 F [facility] [place] Systolic (mm Hg) 2015-07-16 13:55:00 Eleazar rial [place] Diastolic (mm Hg) 2015-07-16 13:55:00 Mem orial [place] Respitory Rate 2015-07-16 13:55:00 Memori al [place] Heart Rate 2015-07-16 13:55:00 [facility] [place] Temperature Oral (F) 2015-07-16 13:55:00 97.4 F [facility] [place] Systolic (mm Hg) 2015-07-16 10:00:00 Eleazar rial [place] Diastolic (mm Hg) 2015-07-16 10:00:00 Mem orial [place] Respitory Rate 2015-07-16 10:00:00 Memori al [place] Heart Rate 2015-07-16 10:00:00 [facility] [place] Temperature Oral (F) 2015-07-16 10:00:00 97.9 F [facility] [place] Height 2015-07-16 01:30:00 152.4 cm [facility] [place] Weight 2015-07-16 01:30:00 [facility] [place] BMI Calculated 2015-07-16 01:30:00 Memori al [place] Height 2015-07-15 18:10:00 152.4 cm [facility] [place] BMI Calculated 2015-07-15 18:10:00 Memori al [place] Weight 2015-07-15 18:10:00 [facility] [place] Weight 2015-07-05 04:10:00 [facility] [place] Height 2015-07-05 04:10:00 152.4 cm [facility] [place] BMI Calculated 2015-07-05 04:10:00 Memori al [place] Temperature Oral (F) 2015-07-05 04:10:00 98.3 F [facility] [place] Respitory Rate 2015-07-05 04:10:00 Memori al [place] Heart Rate 2015-07-05 04:10:00 [facility] [place] Systolic (mm Hg) 2015-07-05 04:10:00 Eleazar rial [place] Diastolic (mm Hg) 2015-07-05 04:10:00 Mem orial [place] BMI Calculated 2015-07-04 18:05:00 Memori al [place] Weight 2015-07-04 18:05:00 [facility] [place] Height 2015-07-04 18:05:00 152.4 cm [facility] [place] Temperature Oral (F) 2015-07-04 18:05:00 97.9 F [facility] [place] Respitory Rate 2015-07-04 18:05:00 Mem[facility] al [place] Heart Rate 2015-07-04 18:05:00 [facility] [place] Systolic (mm Hg) 2015-07-04 18:05:00 Eleazar rial [place] Diastolic (mm Hg) 2015-07-04 18:05:00 Mem orial [place] BMI Calculated 2015-06-04 04:13:00 [facility] al [place] Weight 2015-06-04 04:13:00 [facility] [place] Height 2015-06-04 [...] Systolic (mm Hg) 2015-05-18 21:00:00 Eleazar rial [place] Diastolic (mm Hg) 2015-05-18 21:00:00 Mem orial [place] Temperature Oral (F) 2015-05-18 21:00:00 98.1 F [facility] [place] Respitory Rate 2015-05-18 21:00:00 Memori al [place] Temperature Oral (F) 2015-05-18 19:21:00 98.2 F [facility] [place] Heart Rate 2015-05-18 19:21:00 [facility] [place] Respitory Rate 2015-05-18 19:21:00 Mem[facility] al [place] Heart Rate 2015-05-18 17:10:00 [facility] [place] Respitory Rate 2015-05-09 20:00:00 [facility] al [place] Systolic (mm Hg) 2015-05-09 20:00:00 Eleazar rial [place] Diastolic (mm Hg) 2015-05-09 20:00:00 Mem orial [place] Temperature Oral (F) 2015-05-09 20:00:00 97.5 F [facility] [place] Temperature Oral (F) 2015-05-09 19:10:00 97.5 F [facility] [place] Systolic (mm Hg) 2015-05-09 19:10:00 Eleazar rial [place] Diastolic (mm Hg) 2015-05-09 19:10:00 Mem orial [place] Respitory Rate 2015-05-09 19:10:00 [facility] al [place] Systolic (mm Hg) 2015-05-09 18:41:00 Eleazar rial [place] Diastolic (mm Hg) 2015-05-09 18:41:00 Mem o[facility] [place] Weight 2015-05-09 17:37:00 [facility] [place] BMI Calculated 2015-05-09 17:37:00 Mem[facility] al [place] Height 2015-05-09 17:37:00 152.4 cm [facility] [place] Temperature Oral (F) 2015-05-09 17:37:00 98.9 F [facility] [place] Respitory Rate 2015-05-09 17:37:00 [facility] [place] Heart Rate 2015-05-09 17:37:00 [facility] [place] Systolic (mm Hg) 2015-05-03 00:04:00 Eleazar rial [place] Diastolic (mm Hg) 2015-05-03 00:04:00 Mem o[facility] [place] Heart Rate 2015-05-03 00:04:00 [facility] [place] Respitory Rate 2015-05-03 00:04:00 [facility] al [place] Temperature Oral (F) 2015-05-03 00:04:00 98.5 F [facility] [place] Heart Rate 2015-05-02 21:17:00 [facility] [place] Respitory Rate 2015-05-02 21:17:00 [facility] al [place] Systolic (mm Hg) 2015-05-02 21:17:00 Eleazar rial [place] Diastolic (mm Hg) 2015-05-02 21:17:00 Mem o[facility] [place] Heart Rate 2015-05-02 20:24:00 [facility] [place] Temperature Oral (F) 2015-05-02 20:24:00 98.1 F [facility] [place] Systolic (mm Hg) 2015-05-02 20:24:00 Eleazar rial [place] Diastolic (mm Hg) 2015-05-02 20:24:00 Mem o[facility] [place] Respitory Rate 2015-05-02 20:24:00 [facility] al [place] Temperature Oral (F) 2015-05-02 18:35:00 98.9 F [facility] [place] Systolic (mm Hg) 2015-04-11 19:45:00 Eleazar rial [place] Diastolic (mm Hg) 2015-04-11 19:45:00 Mem o[facility] [place] Temperature Oral (F) 2015-04-11 19:45:00 98.7 F [facility] [place] Respitory Rate 2015-04-11 19:45:00 [facility] [place] Heart Rate 2015-04-11 19:45:00 [facility] [place] Weight 2015-04-11 16:35:00 [facility] [place] Temperature Oral (F) 2015-04-11 16:35:00 98.4 F [facility] [place] Systolic (mm Hg) 2015-04-11 16:35:00 Eleazar rial [place] Diastolic (mm Hg) 2015-04-11 16:35:00 Mem o[facility] [place] Respitory Rate 2015-04-11 16:35:00 [facility] [place] Heart Rate 2015-04-11 16:35:00 [facility] [place] Systolic (mm Hg) 2015-03-30 22:06:00 Eleazar rial [place] Diastolic (mm Hg) 2015-03-30 22:06:00 Mem o[facility] [place] Temperature Oral (F) 2015-03-30 22:06:00 97.9 F [facility] [place] Heart Rate 2015-03-30 22:06:00 [facility] [place] Respitory Rate 2015-03-30 22:06:00 [facility] [place] BMI Calculated 2015-03-30 19:44:00 [facility] [place] Height 2015-03-30 19:44:00 152.4 cm [facility] [place] Systolic (mm Hg) 2015-03-30 19:44:00 Eleazar rial [place] Diastolic (mm Hg) 2015-03-30 19:44:00 [facility] o[facility] [place] Respitory Rate 2015-03-30 19:44:00 [facility] [place] Heart Rate 2015-03-30 19:44:00 [facility] [place] Weight 2015-03-30 19:44:00 [facility] [place] Temperature Oral (F) 2015-03-30 19:44:00 97.9 F [facility] Respitory Rate 2015-03-24 21:57:00 [facility] [place] Temperature Oral (F) 2015-03-24 21:57:00 97.9 F [facility] Heart Rate 2015-03-24 21:57:00 [facility] Systolic (mm Hg) 2015-03-24 21:57:00 [facility] Diastolic (mm Hg) 2015-03-24 21:57:00 [facility] [place] Heart Rate 2015-03-24 17:28:00 [facility] Temperature Oral (F) 2015-03-24 17:28:00 98.8 F [facility] Respitory Rate 2015-03-24 17:28:00 [facility] Systolic (mm Hg) 2015-03-24 17:28:00 [facility] [place] Diastolic (mm Hg) 2015-03-24 17:28:00 [facility] Heart Rate 2015-03-24 13:08:00 [facility] Temperature Oral (F) 2015-03-24 13:08:00 98.4 F [facility] Respitory Rate 2015-03-24 13:08:00 [facility] Systolic (mm Hg) 2015-03-24 13:08:00 [facility] Diastolic (mm Hg) 2015-03-24 13:08:00 [facility] BMI Calculated 2015-03-22 01:41:00 [facility] Weight 2015-03-22 01:41:00 [facility] Height 2015-03-22 01:41:00 152.4 cm [facility] BMI Calculated 2015-03-21 18:42:00 [facility] Weight 2015-03-21 18:42:00 [facility] Height 2015-03-21 18:42:00 152.4 cm [facility] Systolic (mm Hg) 2015-03-11 22:39:00 [facility] [place] Diastolic (mm Hg) 2015-03-11 22:39:00 [facility] Respitory Rate 2015-03-11 22:39:00 [facility] [place] Heart Rate 2015-03-11 22:39:00 [facility] [place] Temperature Oral (F) 2015-03-11 22:39:00 98.1 F [facility] BMI Calculated 2015-03-11 19:44:00 [facility] Weight 2015-03-11 19:44:00 [facility] Systolic (mm Hg) 2015-03-11 19:44:00 Eleazar [facility] [place] Diastolic (mm Hg) 2015-03-11 19:44:00 [facility] Temperature Oral (F) 2015-03-11 19:44:00 97.9 F [facility] Heart Rate 2015-03-11 19:44:00 [facility] Respitory Rate 2015-03-11 19:44:00 [facility] [place] Height 2015-03-11 19:44:00 152.4 cm [facility] Temperature Oral (F) 2015-03-05 10:15:00 97.9 F [facility] Systolic (mm Hg) 2015-03-05 10:15:00 [facility] Diastolic (mm Hg) 2015-03-05 10:15:00 [facility] Respitory Rate 2015-03-05 10:15:00 [facility] [place] Respitory Rate 2015-03-05 09:53:00 [facility] Temperature Oral (F) 2015-03-05 09:53:00 97.8 F [facility] [place] Systolic (mm Hg) 2015-03-05 09:53:00 Ele[facility] Diastolic (mm Hg) 2015-03-05 09:53:00 [facility] Respitory Rate 2015-03-05 06:30:00 [facility] Systolic (mm Hg) 2015-03-05 06:30:00 [facility] [place] Diastolic (mm Hg) 2015-03-05 06:30:00 [facility] Temperature Oral (F) 2015-03-05 06:20:00 97.7 F [facility] [place] Heart Rate 2015-03-05 06:20:00 [facility] Heart Rate 2015-03-05 05:46:00 [facility] [place] Height 2015-03-05 05:46:00 152.4 cm [facility] BMI Calculated 2015-03-05 05:46:00 [facility] [place] Weight 2015-03-05 05:46:00 [facility] Systolic (mm Hg) 2015-02-25 20:55:00 [facility] [place] Diastolic (mm Hg) 2015-02-25 20:55:00 [facility] [place] Temperature Oral (F) 2015-02-25 20:55:00 97.9 F [facility] [place] Heart Rate 2015-02-25 20:55:00 [facility] [place] Respitory Rate 2015-02-25 20:55:00 [facility] [place] Temperature Oral (F) 2015-02-25 17:18:00 98 F [facility] [place] Heart Rate 2015-02-25 17:18:00 [facility] [place] Respitory Rate 2015-02-25 17:18:00 [facility] [place] Systolic (mm Hg) 2015-02-25 17:18:00 [facility] Diastolic (mm Hg) 2015-02-25 17:18:00 [facility] [place] Systolic (mm Hg) 2015-02-25 12:00:00 [facility] Diastolic (mm Hg) 2015-02-25 12:00:00 [facility] Respitory Rate 2015-02-25 12:00:00 [facility] [place] Heart Rate 2015-02-25 12:00:00 [facility] [place] Temperature Oral (F) 2015-02-25 12:00:00 97.8 F [facility] Height 2015-02-24 16:11:00 152.4 cm [facility] [place] BMI Calculated 2015-02-24 16:11:00 [facility] Weight 2015-02-24 16:11:00 [facility] Heart Rate 2015-02-18 20:17:00 [facility] [place] Temperature Oral (F) 2015-02-18 20:17:00 97.3 F [facility] Systolic (mm Hg) 2015-02-18 20:17:00 [facility] Diastolic (mm Hg) 2015-02-18 20:17:00 [facility] Respitory Rate 2015-02-18 20:17:00 [facility] Heart Rate 2015-02-18 16:13:00 [facility] Respitory Rate 2015-02-18 16:13:00 [facility] Systolic (mm Hg) 2015-02-18 16:13:00 [facility] [place] Diastolic (mm Hg) 2015-02-18 16:13:00 [facility] Temperature Oral (F) 2015-02-18 16:13:00 97.5 F [facility] Temperature Oral (F) 2015-02-18 12:19:00 97.9 F [facility] [place] Systolic (mm Hg) 2015-02-18 12:19:00 [facility] [place] Diastolic (mm Hg) 2015-02-18 12:19:00 [facility] Respitory Rate 2015-02-18 12:19:00 [facility] [place] Heart Rate 2015-02-18 12:19:00 [facility] [place] Weight 2015-02-17 02:30:00 [facility] Height 2015-02-17 02:30:00 152.4 cm [facility] BMI Calculated 2015-02-17 02:30:00 [facility] Weight 2015-02-16 20:42:00 [facility] BMI Calculated 2015-02-16 20:42:00 [facility] [place] Height 2015-02-16 20:42:00 152.4 cm [facility] [place] Respitory Rate 2013-12-25 19:27:00 [facility] Heart Rate 2013-12-25 19:27:00 [facility] Diastolic (mm Hg) 2013-12-25 19:27:00 [facility] [place] Systolic (mm Hg) 2013-12-25 19:27:00 Eleazar [facility] [place] Temperature Oral (F) 2013-12-25 19:27:00 98.3 F [facility] [place] BMI Calculated 2013-12-25 16:48:00 [facility] [place] Weight 2013-12-25 16:48:00 [facility] Height 2013-12-25 16:48:00 152.4 cm [facility] Respitory Rate 2013-12-25 16:48:00 [facility] Heart Rate 2013-12-25 16:48:00 [facility] Diastolic (mm Hg) 2013-12-25 16:48:00 [facility] Systolic (mm Hg) 2013-12-25 16:48:00 [facility] Temperature Oral (F) 2013-12-25 16:48:00 98.8 F [facility] [place] Heart Rate 2013-12-23 00:27:00 [facility] Systolic (mm Hg) 2013-12-23 00:27:00 [facility] Respitory Rate 2013-12-23 00:27:00 [facility] [place] Temperature Oral (F) 2013-12-23 00:27:00 98.3 F [facility] Diastolic (mm Hg) 2013-12-23 00:27:00 [facility] [place] Diastolic (mm Hg) 2013-12-22 23:06:00 [facility] Temperature Oral (F) 2013-12-22 23:06:00 98.4 F [facility] [place] Systolic (mm Hg) 2013-12-22 23:06:00 [facility] [place] Respitory Rate 2013-12-22 23:06:00 [facility] Heart Rate 2013-12-22 23:06:00 [facility] [place] Weight 2013-12-22 20:46:00 [facility] [place] Temperature Oral (F) 2013-12-22 20:46:00 98.7 F [facility] Systolic (mm Hg) 2013-12-22 20:46:00 [facility] Diastolic (mm Hg) 2013-12-22 20:46:00 [facility] [place] Respitory Rate 2013-12-22 20:46:00 [facility] Heart Rate 2013-12-22 20:46:00 [facility] Diastolic (mm Hg) 2013-12-17 20:30:00 [facility] [place] Respitory Rate 2013-12-17 20:30:00 [facility] [place] Systolic (mm Hg) 2013-12-17 20:30:00 [facility] [place] Systolic (mm Hg) 2013-12-17 19:06:00 [facility] [place] Diastolic (mm Hg) 2013-12-17 19:06:00 [facility] Respitory Rate 2013-12-17 19:06:00 [facility] Systolic (mm Hg) 2013-12-17 18:54:00 [facility] Diastolic (mm Hg) 2013-12-17 18:54:00 [facility] [place] Temperature Oral (F) 2013-12-17 17:09:00 98.1 F [facility] [place] Respitory Rate 2013-12-17 16:50:00 [facility] Temperature Oral (F) 2013-12-17 09:00:00 97.1 F [facility] [place] Height 2013-12-17 02:58:00 152.4 cm [facility] Weight 2013-12-17 02:58:00 [facility] BMI Calculated 2013-12-17 02:58:00 [facility] [place] Temperature Oral (F) 2013-12-17 02:55:00 98.1 F [facility] [place] Height 2013-12-16 17:19:00 152.4 cm [facility] [place] BMI Calculated 2013-12-16 17:19:00 [facility] [place] Weight 2013-12-16 17:19:00 [facility] [place] Heart Rate 2013-12-16 17:19:00 [facility] Temperature Oral (F) 2013-11-08 21:00:00 98 F [facility] Diastolic (mm Hg) 2013-11-08 21:00:00 [facility] Respitory Rate 2013-11-08 21:00:00 [facility] [place] Systolic (mm Hg) 2013-11-08 21:00:00 [facility] Temperature Oral (F) 2013-11-08 19:13:00 97.6 F [facility] Diastolic (mm Hg) 2013-11-08 19:13:00 [facility] Systolic (mm Hg) 2013-11-08 19:13:00 [facility] [place] Respitory Rate 2013-11-08 19:13:00 [facility] Systolic (mm Hg) 2013-11-08 16:18:00 [facility] [place] Respitory Rate 2013-11-08 16:18:00 [facility] Diastolic (mm Hg) 2013-11-08 16:18:00 [facility] [place] Temperature Oral (F) 2013-11-08 11:34:00 99.0 F [facility] [place] Heart Rate 2013-11-08 11:34:00 [facility] Heart Rate 2013-11-08 08:04:00 [facility] [place] BMI Calculated 2013-11-08 04:51:00 [facility] [place] Height 2013-11-08 04:51:00 152.4 cm [facility] 2013-11-08 04:51:00 [facility] [place] Heart Rate 2013-11-08 04:51:00 [facility] [place] Procedures Procedure Date / Time Performing Clinician Source Performed Cardiac catheterization [facility] Stent placement<sup>1</sup> Eleazar [facility] Plan of Care Planned Activity Planned Date Details Comments Source Future Scheduled Test 2021-05-29 IMM Influenza Seasonal [facility] 00:00:00 May to October (>/= 19 yrs) [code = IMM Influenza Seasonal May to October (>/= 19 yrs)] Future Scheduled Test 2015 IMM Pneumococcal Age 65 [facility] 00:00:00 and Up [code = IMM Pneumococcal Age 65 and Up] Future Scheduled Test 2000 Screening for malignant [facility] 00:00:00 neoplasm of colon (procedure) [code = 923031303] Future Scheduled Test 1990 Breast Cancer Scrn [facility] 00:00:00 (Yearly) [code = Breast Cancer Scrn (Yearly)] Future Scheduled Test 1962 COVID-19 Vaccine (1) [facility] 00:00:00 [code = COVID-19 Vaccine (1)] Encounters Start End Encounter Admission Attending Care Care Encounter Source Date/Time Date/Time Type Type Clinicians Facility Department ID 2020-10-15 2020-10-15 Emergency [facility] [id number] [facility] 02:02:00 04:45:00 Wilberto Freitas [id number] ity [facility] [id number] [facility] [id number] [address] 2020-10-15 2020-10-15 Emergency Connor [facility] [id number] 02:02:00 04:45:00 Wilberto Freitas [id number] [place] [id number] [place] [id number] [facility] 2020-10-15 2020-10-15 Emergency X CONNOR [facility] ERT [id number] [facility] 02:02:00 02:02:00 WILBERTO streeter [facility] 2020-01-21 2020-01-[address] [id number] [facility] 05:31:00 11:30:00 IVANHOE 2019-10-15 2019-10-15 Emergency E BERNARDINO REID [facility]BL [facility]BL [id number] [facility] 13:12:00 15:34:00 2019-05-20 2019-05-20 Emergency E [facility] [id number] [facility] 15:19:00 15:19:00 2019-02-25 2019-02-25 Emergency E [facility] [id number] [facility] 10:56:00 10:56:00 2018-08-21 2018-08-21 Emergency [facility] [id number] [place] 18:32:58 18:32:58 Health 2018-08-21 2018-08-21 Emergency [facility] [id number] [place] 17:47:59 17:47:59 [facility] 2018-08-21 2018-08-21 Emergency [facility] [id number] [place] 16:16:06 16:16:06 [facility] 2018-08-16 2018-08-16 Emergency [facility] [id number] [place] 22:04:00 22:04:00 [facility] 2018-08-16 2018-08-16 Emergency [facility] [id number] [place] 21:21:42 21:21:42 Health 2018-05-18 2018-05-18 Emergency [facility] [id number] [place] 14:51:52 14:51:52 [facility] 2018-03-08 2018-03-08 Emergency [facility] [id number] [place] 15:12:17 15:12:17 [facility] 2018-01-16 2018-01-16 Emergency [facility] [id number] [address] [place] [address] 17:53:03 17:53:03 [facility] 2018-01-16 2018-01-16 Emergency [facility] [id number] [address] [place] [address] 00:00:00 00:00:00 [facility] 2018-01-16 2018-01-16 Outpatient [facility] [id number] [address] [place] [address] 00:00:00 00:00:00 [facility] 2017-11-11 2017-11-11 Emergency E [facility] [id number] . 16:37:00 16:37:00 [facility] 2017-01-19 2017-01-19 Emergency [facility]Fl[facility] [id number] Memoria 17:18:00 23:37:00 geovanny Wing 34 l [facility] 2017-01-16 2017-01-17 Emergency [facility] [id number] [facility] 23:22:00 02:34:00 geovanny Wing 33 [facility] 2016-11-29 2016-11-29 Emergency [facility] [id number] Memoria 00:17:00 04:13:00 geovanny Wing 32 l [facility] 2016-11-06 2016-11-07 Emergency [facility] [id number] Memoria 23:34:00 03:03:00 geovanny Wing 31 l [facility] 2016-10-10 2016-10-11 Observatio [facility] [id number] Mem[facility] 17:45:00 19:54:00 jay Wing 30 [facility] 2016-09-15 2016-09-15 Emergency [facility] [id number] [facility] 03:19:00 06:56:00 geovanny Wing 29 l [facility] 2016-04-14 2016-04-14 Emergency [facility] [id number] [facility] 02:11:00 06:37:00 geovanny Wing 28 [facility] 2016-03-11 2016-03-12 OBS [facility] [id number] [facility] 19:41:00 20:25:00 Observatio geovanny Wing 27 l n Patient [facility] 2016-03-05 2016-03-06 EC nullFlavo [facility] [id number] [facility] 21:54:00 02:21:00 Emergency r [place] 26 l Center [facility] 2016-02-29 2016-03-01 EC nullFlavo [facility] [id number] [facility] 22:25:00 01:29:00 Emergency r [place] 25 l Center [facility] 2015-09-04 2015-09-05 OBS nullFlavo [facility] [id number] [facility] 03:30:00 16:26:00 Observatio r [place] 24 l n Patient [facility] 2015-07-15 2015-07-16 OBS nullFlavo [facility] [id number] Memoria 18:00:00 21:30:00 Observatio r [place]iej 23 l n Patient [facility] 2015-07-05 2015-07-05 EC nullFlavo [facility] [id number] Memoria 04:07:00 07:09:00 Emergency r [place] 22 l [facility] 2015-07-04 2015-07-04 EC nullFlavo [facility] [id number] Memoria 17:57:00 20:54:00 Emergency r [place] 21 l [facility] 2015-06-04 2015-06-04 EC nullFlavo [facility] [id number] Memoria 04:00:00 07:09:00 Emergency r [place] 20 l [facility] 2015-05-18 2015-05-18 EC nullFlavo [facility] [id number] Memoria 16:55:00 23:04:00 Emergency r [place] 19 l [facility] 2015-05-09 2015-05-09 EC nullFlavo [facility] [id number] Memoria 17:15:00 20:10:00 Emergency r [place] 18 l [facility] 2015-05-02 2015-05-03 EC nullFlavo [facility] [id number] Memoria 18:18:00 00:05:00 Emergency r [place] 17 l [facility] 2015-04-11 2015-04-11 EC nullFlavo [facility] [id number] Memoria 16:25:00 19:47:00 Emergency r [place] 16 l [facility] 2015-03-30 2015-03-30 EC nullFlavo [facility] [id number] Memoria 19:39:00 22:11:00 Emergency r [place] 15 l Center [facility] 2015-03-21 2015-03-24 Inpatient nullFlavo [facility] [id number] Memoria 18:24:00 22:30:00 r [place] 14 l [facility] 2015-03-11 2015-03-11 EC nullFlavo [facility] [id number] Memoria 19:43:00 22:41:00 Emergency r [place] 13 l [facility] 2015-03-05 2015-03-05 EC nullFlavo [facility] [id number] Memoria 05:43:00 10:21:00 Emergency r [place] 12 l [facility] 2015-02-24 2015-02-26 OBS nullFlavo [facility] [id number] Memoria 15:34:00 01:14:00 Observatio r [place] 11 l Patient [facility] 2015-02-16 2015-02-18 OBS nullFlavo [facility] [id number] Memoria 20:36:00 21:00:00 Observatio r [place] 10 [facility] Patient [facility] 2013-12-25 2013-12-25 EC nullFlavo [facility] [id number] Memoria 16:37:00 19:52:00 Emergency r [place] 09 l [facility] 2013-12-22 2013-12-23 EC nullFlavo [facility] [id number] Memoria 20:43:00 00:29:00 Emergency r [place] 08 [facility] 2013-12-16 2013-12-17 OBS nullFlavo [facility] [id number] Memoria 17:18:00 22:45:00 Observatio r Maciej 07 [facility] Patient [facility] 2013-11-08 2013-11-08 OBS nullFlavo [facility] [id number] Memoria 04:50:00 23:00:00 Observatio r [place] [id number] [facility] Patient Hospital [address] [place] [address] Results Test Description Test Time Test Comments [...] UA Color (test code = UA Color) [facility] [id number] 19:21:00 Test Item Value Reference Range Interpretation Comments UA Urobilinogen (test code = UA <=1.0 mg/dL 0.1-1.0 Urobilinogen) [facility] AND [id number] 19:21:00 Test Item Value Reference Range Interpretation Comments UA Ketones (test code = UA Negative mg/dL Ketones) [facility] AND [id number] 19:21:00 Test Item Value Reference Range Interpretation Comments UA Bili (test code = Negative *NA*(01/19/17 UA Bili) 2:21 PM) [facility] AND [id number] 19:21:00 Test Item Value Reference Range Interpretation Comments UA Glucose (test code = UA Negative mg/dL Glucose) [facility] AND [id number] 19:21:00 Test Item Value Reference Range Interpretation Comments UA Protein (test code = UA Negative mg/dL Protein) [facility] AND [id number] 19:21:00 Test Item Value Reference Range Interpretation Comments UA Leuk Est (test Negative (01/19/17 2:21 code = UA Leuk Est) PM) [facility] AND [id number] 19:21:00 Test Item Value Reference Range Interpretation Comments UA Nitrite (test code Negative (01/19/17 2:21 = UA Nitrite) PM) [facility] AND [id number] 19:21:00 Test Item Value Reference Range Interpretation Comments UA Blood (test code = Negative (01/19/17 2:21 UA Blood) PM) [facility] AND [id number] 19:21:00 Test Item Value Reference Range Interpretation Comments UA RBC (test code = 1 See_Comment [Automa marcelle message] The UA RBC) system which ge nerated this result transmit marcelle reference range : <=2. The reference range was not used to interpr et this result as aranza l/abnormal. [facility] AND [id number] 19:21:00 Test Item Value Reference Range Interpretation Comments UA WBC (test code = 1 See_Comment [Automa marcelle message] The UA WBC) system which ge nerated this result transmit marcelle reference range : <=5. The reference range was not used to interpr et this result as aranza l/abnormal. [facility] AND [id number] 19:21:00 Test Item Value Reference Range Interpretation Comments UA Sq Epi (test code = UA Sq Epi) Few /LPF [facility] AND [id number] 19:21:00 Test Item Value Reference Range Interpretation Comments UA pH (test code = UA pH) 7.0 5.0-8.0 [facility] AND [id number] 19:21:00 Test Item Value Reference Range Interpretation Comments UA Spec Grav (test code = UA Spec Grav) 1.008 [facility] AND [id number] 19:21:00 Test Item Value Reference Range Interpretation Comments UA Turbidity (test code = Clear (01/19/17 2:21 UA Turbidity) PM) [facility] [id number] 18:07:00 Test Item Value Reference Range Interpretation Comments CK MB (test code = CK MB) 3.0 0.5-3.6 [facility] [id number] 18:07:00 Test Item Value Reference Range Interpretation Comments Troponin-I (test code no gt See_Comment [Auto mated message] The = Troponin-I) system which g enerated this result transmit marcelle reference range : <=0.40. The reference r melody was not used to interpr et this result as aranza l/abnormal. [facility]2017-05-24 18:07:00 Test Item Value Reference Range Interpretation Comments Lipase Lvl (test code = Lipase Lvl) 231 73-393 [facility]2017-05-24 18:07:00 Test Item Value Reference Range Interpretation Comments B/C Ratio (test code = B/C Ratio) 9 6-25 [facility]2017-05-24 18:07:00 Test Item Value Reference Range Interpretation Comments AGAP (test code = AGAP) 8.4 10.0-20.0 [facility]2017-05-24 18:07:00 Test Item Value Reference Range Interpretation Comments A/G Ratio (test code = A/G Ratio) 1.0 0.7-1.6 [facility]2017-05-24 18:07:00 Test Item Value Reference Range Interpretation Comments Globulin (test code = Globulin) 3.6 2.7-4.2 [facility]2017-05-24 18:07:00 Test Item Value Reference Range Interpretation Comments BUN (test code = BUN) 7 7- [facility]2017-05-24 18:07:00 Test Item Value Reference Range Interpretation Comments CO2 (test code = CO2) 32 24-32 [facility]2017-05-24 18:07:00 Test Item Value Reference Range Interpretation Comments Chloride Lvl (test code = Chloride Lvl) 104 95-109 [facility]2017-05-24 18:07:00 Test Item Value Reference Range Interpretation Comments Potassium Lvl (test code = Potassium 3.4 3.5-5.1 Lvl) [facility]2017-05-24 18:07:00 Test Item Value Reference Range Interpretation Comments Sodium Lvl (test code = Sodium Lvl) 141 135-145 [facility]2017-05-24 18:07:00 Test Item Value Reference Range Interpretation Comments Creatinine Lvl (test code = Creatinine 0.79 0.50-1.40 Lvl) [facility]2017-05-24 18:07:00 Test Item Value Reference Range Interpretation Comments Albumin Lvl (test code = Albumin Lvl) 3.6 3.5-5.0 [facility]2017-05-24 18:07:00 Test Item Value Reference Range Interpretation Comments Calcium Lvl (test code = Calcium Lvl) 9.1 8.5-10.5 [facility]2017-05-24 18:07:00 Test Item Value Reference Range Interpretation Comments ALT (test code = ALT) 25 See_Comment [Auto mated message] The system which ge nerated this result transmit marcelle reference range : <=65. The reference range was not used to interpr et this result as aranza l/abnormal. [facility]2017-05-24 18:07:00 Test Item Value Reference Range Interpretation Comments Total Protein (test code = Total 7.2 6.4-8.4 Protein) [facility]2017-05-24 18:07:00 Test Item Value Reference Range Interpretation Comments Bili Total (test code = Bili Total) 1.1 0.2-1.3 [place] [id number] 18:07:00 Test Item Value Reference Range Interpretation Comments Alk Phos (test code = Alk Phos) 111 39-136 [facility]2017-05-24 18:07:00 Test Item Value Reference Range Interpretation Comments AST (test code = AST) 31 See_Comment [Auto mated message] The system which ge nerated this result transmit marcelle reference range : <=37. The reference range was not used to interpr et this result as aranza l/abnormal. [facility]2017-05-24 18:07:00 Test Item Value Reference Range Interpretation Comments eGFR (test code = eGFR) 90 [place] [id number] 18:07:00 Test Item Value Reference Range Interpretation Comments Glucose Lvl (test code = Glucose Lvl) 73 70-99 [facility]2017-05-24 18:07:00 Test Item Value Reference Range Interpretation Comments Amylase Lvl (test code = Amylase Lvl) 75 25-115 [place] [id number] 18:07:00 Test Item Value Reference Range Interpretation Comments PTT (test code = PTT) 31.3 s 22.9-35.8 [place] [id number] 18:07:00 Test Item Value Reference Range Interpretation Comments MPV (test code = MPV) 8.5 7.4-10.4 [place] [id number] 18:07:00 Test Item Value Reference Range Interpretation Comments Hct (test code = Hct) 42.0 36.0-48.0 [id number] 18:07:00 Test Item Value Reference Range Interpretation Comments RBC (test code = RBC) 4.92 4.20-5.40 [id number] 18:07:00 Test Item Value Reference Range Interpretation Comments Hgb (test code = Hgb) 14.4 12.0-16.0 [facility] [id number] 18:07:00 Test Item Value Reference Range Interpretation Comments RDW (test code = RDW) 14.2 11.5-14.5 [facility]wallFkdpeqoFFKYOBWMPE9792-70-58 18:07:00 Test Item Value Reference Range Interpretation Comments Platelet (test code = Platelet) 236 133-450 [facility]wa[id number] 18:07:00 Test Item Value Reference Range Interpretation Comments MCHC (test code = MCHC) 34.2 32.0-36.0 [facility]wallLofufbtEHGCHIKIEG6925-13-09 18:07:00 Test Item Value Reference Range Interpretation Comments MCH (test code = MCH) 29.2 pg 27.0-31.0 [facility]wallXpptzgpDJZHKSPTXM8494-53-86 18:07:00 Test Item Value Reference Range Interpretation Comments MCV (test code = MCV) 85.5 80.0-98.0 [facility]wallOlsbmkrMVBWWVLWIE7349-32-05 18:07:00 Test Item Value Reference Range Interpretation Comments WBC (test code = WBC) 7.7 3.7-10.4 [facility]wallDbvumdbJPMAVMPIPY1057-18-17 18:07:00 Test Item Value Reference Range Interpretation Comments PT (test code = PT) 13.7 s 12.0-14.7 [facility]wallPwpeuorONIXNSFOER7698-22-39 18:07:00 Test Item Value Reference Range Interpretation Comments INR (test code = INR) 1.03 0.85-1.17 [facility]wallSvmybihAWJJKECMMJ9388-25-15 18:07:00 Test Item Value Reference Range Interpretation Comments Eosinophils # (test code 0.3 See_Comment [A utomated message] The = Eosinophils #) system ic h generated this result tra nsmitted reference range : <=0.5. The reference r melody was not used to int erpret this result as normal/abnormal . [id number] 18:07:00 Test Item Value Reference Range Interpretation Comments Segs (test code = Segs) 68.3 45.0-75.0 [facility]wa[id number] 18:07:00 Test Item Value Reference Range Interpretation Comments Monocytes # (test code 0.6 See_Comment [Aut omated message] The = Monocytes #) system which generated this result tra nsmitted reference range : <=0.8. The reference r melody was not used to int erpret this result as normal/abnormal . [facility]wallTordordDXDZZADGGG9660-22-71 18:07:00 Test Item Value Reference Range Interpretation Comments Segs-Bands # (test code = Segs-Bands #) 5.3 1.5-8.1 [facility]wallNllvjhlBKMCGVAUKD5013-10-03 18:07:00 Test Item Value Reference Range Interpretation Comments Eosinophils (test code = 4.5 See_Comment [A utomated message] The Eosinophils) system which ge nerated this result tra nsmitted reference range : <=4.0. The reference r melody was not used to int erpret this result as normal/abnormal . [facility]wallSsvxkloLABJTGXRPG3027-25-25 18:07:00 Test Item Value Reference Range Interpretation Comments Basophils (test code = 0.6 See_Comment [Aut omated message] The Basophils) system which ge nerated this result tra nsmitted reference range : <=1.0. The reference r melody was not used to int erpret this result as normal/abnormal . [facility]wallQesafxmKCWQQZVBCF4480-85-88 18:07:00 Test Item Value Reference Range Interpretation Comments Lymphocytes # (test code = Lymphocytes 1.4 1.0-5.5 #) [facility]wa[id number] 18:07:00 Test Item Value Reference Range Interpretation Comments Monocytes (test code = Monocytes) 7.8 2.0-12.0 [facility]wallIfryavaIFSAISPQIY1342-63-11 18:07:00 Test Item Value Reference Range Interpretation Comments Lymphocytes (test code = Lymphocytes) 18.8 20.0-40.0 [facility]2017-05-22 00:23:00 Test Item Value Reference Range Interpretation Comments U Cocaine Scr (test Positive *ABN*(01/16/17 code = U Cocaine Scr) 7:23 PM) [facility] [id number] 00:23:00 Test Item Value Reference Range Interpretation Comments U Phencyc Scr (test Negative *NA*(01/16/17 code = U Phencyc Scr) 7:23 PM) [facility] [id number] 00:23:00 Test Item Value Reference Range Interpretation Comments U Cannab Scr (test Negative *NA*(01/16/17 code = U Cannab Scr) 7:23 PM) [facility] [id number] 00:23:00 Test Item Value Reference Range Interpretation Comments U Opiate Scr (test Negative *NA*(01/16/17 code = U Opiate Scr) 7:23 PM) [facility] [id number] 00:23:00 Test Item Value Reference Range Interpretation Comments UDS Note (test code = See Note (01/16/17 7:23 UDS Note) PM) [facility] [id number] 00:23:00 Test Item Value Reference Range Interpretation Comments U Keyla Scr (test code Negative *NA*(01/16/17 = U Keyla Scr) 7:23 PM) [facility] [id number] 00:23:00 Test Item Value Reference Range Interpretation Comments U Amph Scr (test code Negative *NA*(01/16/17 = U Amph Scr) 7:23 PM) [facility] [id number] 00:23:00 Test Item Value Reference Range Interpretation Comments U Benzodia Scr (test Negative *NA*(01/16/17 code = U Benzodia Scr) 7:23 PM) [facility] [id number] 00:23:00 Test Item Value Reference Range Interpretation Comments UA Ketones (test code Negative *NA*(01/16/17 = UA Ketones) 7:23 PM) [facility] [id number] 00:23:00 Test Item Value Reference Range Interpretation Comments UA Bili (test code = Negative *NA*(01/16/17 UA Bili) 7:23 PM) [facility] [id number] 00:23:00 Test Item Value Reference Range Interpretation Comments UA Glucose (test code Negative (01/16/17 7:23 = UA Glucose) PM) [facility] AND [id number] 00:23:00 Test Item Value Reference Range Interpretation Comments UA Nitrite (test code Negative (01/16/17 7:23 = UA Nitrite) PM) [facility] AND [id number] 00:23:00 Test Item Value Reference Range Interpretation Comments UA Leuk Est (test Negative (01/16/17 7:23 code = UA Leuk Est) PM) [facility] AND [id number] 00:23:00 Test Item Value Reference Range Interpretation Comments UA Urobilinogen (test code = UA 1.0 0.1-1.0 Urobilinogen) [facility] AND [id number] 00:23:00 Test Item Value Reference Range Interpretation Comments UA Blood (test code = Negative (01/16/17 7:23 UA Blood) PM) [facility] AND [id number] 00:23:00 Test Item Value Reference Range Interpretation Comments UA Turbidity (test code Slight Cloudy = UA Turbidity) (01/16/17 7:23 PM) [facility] AND [id number] 00:23:00 Test Item Value Reference Range Interpretation Comments UA Spec Grav (test code = UA Spec 1.007 1 Grav) [facility] AND [id number] 00:23:00 Test Item Value Reference Range Interpretation Comments UA pH (test code = UA pH) 6.0 1 5.0-8.0 [facility] AND [id number] 00:23:00 Test Item Value Reference Range Interpretation Comments UA Protein (test code Negative (01/16/17 7:23 = UA Protein) PM) [facility] AND [id number] 00:23:00 Test Item Value Reference Range Interpretation Comments UA Color (test code = Yellow *NA*(01/16/17 UA Color) 7:23 PM) [facility] AND [id number] 00:23:00 Test Item Value Reference Range Interpretation Comments UA RBC (test code = 0-2 /HPF See_Comment [Automa marcelle message] The UA RBC) system which ge nerated this result tra nsmitted reference range : <=2. The reference range was not used to interpr et this result as aranza l/abnormal. [facility] [id number] 00:23:00 Test Item Value Reference Range Interpretation Comments UA Bacteria (test code = UA Few /HPF Bacteria) [facility] [id number] 00:23:00 Test Item Value Reference Range Interpretation Comments UA WBC (test code = UA WBC) 0-2 /HPF [facility] [id number] 00:23:00 Test Item Value Reference Range Interpretation Comments UA Sq Epi (test code = UA Sq Epi) Few /LPF [facility] HospitalChurchkey Can CoCARWalkaboutAC [id number] 23:57:00 Test Item Value Reference Range Interpretation Comments Troponin-I (test code no gt See_Comment [Auto mated message] The = Troponin-I) system which g enerated this result transmit marcelle reference range : <=0.40. The reference r melody was not used to interpr et this result as aranza l/abnormal. [facility] [employer] [id number] 23:57:00 Test Item Value Reference Range Interpretation Comments CK MB (test code = CK MB) 2.0 0.5-3.6 [facility] HospitalAstroloMeAC [id number] 23:57:00 Test Item Value Reference Range Interpretation Comments Total CK (test code = Total CK) 208 12-191 [facility] HospitalFuhuajie Industrial ([place]) [id number] 23:57:00 Test Item Value Reference Range Interpretation Comments CK MB Index (test 1.0 See_Comment [Automate d message] The code = CK MB Index) system w [facility] generated this result transmit marcelle reference range : <=2.5. The reference range was not used to interpr et this result as aranza l/abnormal. [facility] [employer] [id number] 23:57:00 Test Item Value Reference Range Interpretation Comments eGFR (test code = eGFR) 73 [facility] [employer] [id number] 23:57:00 Test Item Value Reference Range Interpretation Comments CO2 (test code = CO2) 29 24-32 [facility] [employer] [id number] 23:57:00 Test Item Value Reference Range Interpretation Comments Sodium Lvl (test code = Sodium Lvl) 142 135-145 [facility] [employer] [id number] 23:57:00 Test Item Value Reference Range Interpretation Comments Glucose Lvl (test code = Glucose Lvl) 105 70-99 [facility]2017-05-21 23:57:00 Test Item Value Reference Range Interpretation Comments BUN (test code = BUN) 15 7- [facility]2017-05-21 23:57:00 Test Item Value Reference Range Interpretation Comments AGAP (test code = AGAP) 11.0 10.0-20.0 [facility]2017-05-21 23:57:00 Test Item Value Reference Range Interpretation Comments B/C Ratio (test code = B/C Ratio) 16 6-25 [facility]2017-05-21 23:57:00 Test Item Value Reference Range Interpretation Comments Calcium Lvl (test code = Calcium Lvl) 9.4 8.5-10.5 [facility]2017-05-21 23:57:00 Test Item Value Reference Range Interpretation Comments Creatinine Lvl (test code = Creatinine 0.94 0.50-1.40 Lvl) [facility]2017-05-21 23:57:00 Test Item Value Reference Range Interpretation Comments Chloride Lvl (test code = Chloride Lvl) 106 95-109 [facility]2017-05-21 23:57:00 Test Item Value Reference Range Interpretation Comments Potassium Lvl (test code = Potassium 4.0 3.5-5.1 Lvl) [facility]2017-05-21 23:57:00 Test Item Value Reference Range Interpretation Comments Albumin Lvl (test code = Albumin Lvl) 3.6 3.5-5.0 [facility]2017-05-21 23:57:00 Test Item Value Reference Range Interpretation Comments ALT (test code = ALT) 24 See_Comment [Auto mated message] The system which ge nerated this result transmit marcelle reference range : <=65. The reference range was not used to interpr et this result as aranza l/abnormal. [facility]2017-05-21 23:57:00 Test Item Value Reference Range Interpretation Comments Bili Total (test code = Bili Total) 0.6 0.2-1.3 [facility]2017-05-21 23:57:00 Test Item Value Reference Range Interpretation Comments Alk Phos (test code = Alk Phos) 107 39-136 [facility]2017-05-21 23:57:00 Test Item Value Reference Range Interpretation Comments AST (test code = AST) 29 See_Comment [Auto mated message] The system which ge nerated this result transmit marcelle reference range : <=37. The reference range was not used to interpr et this result as aranza l/abnormal. [facility]2017-05-21 23:57:00 Test Item Value Reference Range Interpretation Comments A/G Ratio (test code = A/G Ratio) 0.9 0.7-1.6 [facility]2017-05-21 23:57:00 Test Item Value Reference Range Interpretation Comments Globulin (test code = Globulin) 3.9 2.7-4.2 [facility]2017-05-21 23:57:00 Test Item Value Reference Range Interpretation Comments Total Protein (test code = Total 7.5 6.4-8.4 Protein) [id number] 23:57:00 Test Item Value Reference Range Interpretation Comments Hgb (test code = Hgb) 14.6 12.0-16.0 [place] [id number] 23:57:00 Test Item Value Reference Range Interpretation Comments Hct (test code = Hct) 42.7 36.0-48.0 [id number] 23:57:00 Test Item Value Reference Range Interpretation Comments MCHC (test code = MCHC) 34.2 32.0-36.0 [id number] 23:57:00 Test Item Value Reference Range Interpretation Comments MCV (test code = MCV) 85.3 80.0-98.0 [id number] 23:57:00 Test Item Value Reference Range Interpretation Comments MCH (test code = MCH) 29.2 pg 27.0-31.0 [id number] 23:57:00 Test Item Value Reference Range Interpretation Comments RDW (test code = RDW) 14.3 11.5-14.5 [place] [id number] 23:57:00 Test Item Value Reference Range Interpretation Comments Platelet (test code = Platelet) 227 133-450 [id number] 23:57:00 Test Item Value Reference Range Interpretation Comments MPV (test code = MPV) 8.0 7.4-10.4 [id number] 23:57:00 Test Item Value Reference Range Interpretation Comments WBC (test code = WBC) 6.6 3.7-10.4 [place] [address]-05-21 23:57:00 Test Item Value Reference Range Interpretation Comments RBC (test code = RBC) 5.00 4.20-5.40 [place] [address]-05-21 23:57:00 Test Item Value Reference Range Interpretation Comments Basophils (test code = 0.8 See_Comment [Aut omated message] The Basophils) system which ge nerated this result tra nsmitted reference range : <=1.0. The reference r melody was not used to int erpret this result as normal/abnormal . [place] [address]-05-21 23:57:00 Test Item Value Reference Range Interpretation Comments Segs-Bands # (test code = Segs-Bands #) 4.0 1.5-8.1 [id number] 23:57:00 Test Item Value Reference Range Interpretation Comments Monocytes # (test code 0.5 See_Comment [Aut omated message] The = Monocytes #) system which generated this result tra nsmitted reference range : <=0.8. The reference r melody was not used to int erpret this result as normal/abnormal . [facility]wallJeovjazWLNZNBFASJ3945-09-31 23:57:00 Test Item Value Reference Range Interpretation Comments Basophils # (test code 0.1 See_Comment [Aut omated message] The = Basophils #) system which generated this result tra nsmitted reference range : <=0.2. The reference r melody was not used to int erpret this result as normal/abnormal . [facility] R[id number] 23:57:00 Test Item Value Reference Range Interpretation Comments Lymphocytes # (test code = Lymphocytes 1.8 1.0-5.5 #) [facility]wallBajwptrDILOBQWJAV3505-45-30 23:57:00 Test Item Value Reference Range Interpretation Comments Eosinophils # (test code 0.2 See_Comment [A utomated message] The = Eosinophils #) system whic h generated this result tra nsmitted reference range : <=0.5. The reference r melody was not used to int erpret this result as normal/abnormal . [id number] 23:57:00 Test Item Value Reference Range Interpretation Comments Segs (test code = Segs) 60.6 45.0-75.0 [facility]wallAklzsdbEPQMGBGJFZ9180-01-85 23:57:00 Test Item Value Reference Range Interpretation Comments Monocytes (test code = Monocytes) 8.3 2.0-12.0 [facility]wa[id number] 23:57:00 Test Item Value Reference Range Interpretation Comments Eosinophils (test code = 3.5 See_Comment [A utomated message] The Eosinophils) system which ge nerated this result tra nsmitted reference range : <=4.0. The reference r melody was not used to int erpret this result as normal/abnormal . [id number] 23:57:00 Test Item Value Reference Range Interpretation Comments Lymphocytes (test code = Lymphocytes) 26.8 20.0-40.0 [facility]2017-04-03 02:18:00 Test Item Value Reference Range Interpretation Comments UA Ketones (test code Negative *NA*(11/28/16 = UA Ketones) 9:18 PM) [facility] AND [id number] 02:18:00 Test Item Value Reference Range Interpretation Comments UA Blood (test code = Negative (11/28/16 9:18 UA Blood) PM) [facility] AND [id number] 02:18:00 Test Item Value Reference Range Interpretation Comments UA Urobilinogen (test code = UA 1.0 0.1-1.0 Urobilinogen) [facility] AND [id number] 02:18:00 Test Item Value Reference Range Interpretation Comments UA Nitrite (test code Negative (11/28/16 9:18 = UA Nitrite) PM) [facility] AND [id number] 02:18:00 Test Item Value Reference Range Interpretation Comments UA WBC (test code = UA WBC) 6-10 /HPF [facility] AND [id number] 02:18:00 Test Item Value Reference Range Interpretation Comments UA RBC (test code = 0-2 /HPF See_Comment [Automa marcelle message] The UA RBC) system which ge nerated this result tra nsmitted reference range : <=2. The reference range was not used to interpr et this result as aranza l/abnormal. [facility]ann[facility] AND [id number] 02:18:00 Test Item Value Reference Range Interpretation Comments UA Bili (test code = Negative *NA*(11/28/16 UA Bili) 9:18 PM) [facility]annAC[facility] AND [id number] 02:18:00 Test Item Value Reference Range Interpretation Comments UA Bacteria (test code = UA Occasional /HPF Bacteria) [facility] AND [id number] 02:18:00 Test Item Value Reference Range Interpretation Comments UA Sq Epi (test code = UA Sq Occasional /LPF Epi) [facility] [id number] 02:18:00 Test Item Value Reference Range Interpretation Comments UA Leuk Est (test Moderate *ABN*(11/28/16 code = UA Leuk Est) 9:18 PM) [facility] AND [id number] 02:18:00 Test Item Value Reference Range Interpretation Comments UA Color (test code = Yellow *NA*(11/28/16 9:18 UA Color) PM) [facility] AND [id number] 02:18:00 Test Item Value Reference Range Interpretation Comments UA pH (test code = UA pH) 6.0 1 5.0-8.0 [facility] AND [id number] 02:18:00 Test Item Value Reference Range Interpretation Comments UA Protein (test code Negative (11/28/16 9:18 = UA Protein) PM) [facility] AND [id number] 02:18:00 Test Item Value Reference Range Interpretation Comments UA Glucose (test code Negative (11/28/16 9:18 = UA Glucose) PM) [facility] AND [id number] 02:18:00 Test Item Value Reference Range Interpretation Comments UA Spec Grav (test code *NA*(11/28/16 9:18 PM) = UA Spec Grav) [facility] AND [id number] 02:18:00 Test Item Value Reference Range Interpretation Comments UA Turbidity (test code = Clear (11/28/16 9:18 UA Turbidity) PM) [facility] HospitalannCARDIAC [id number] 01:37:00 Test Item Value Reference Range Interpretation Comments Troponin-I (test code no gt See_Comment [Auto mated message] The = Troponin-I) system which g enerated this result transmit marcelle reference range : <=0.40. The reference r melody was not used to interpr et this result as aranza l/abnormal. [facility] [employer] [id number] 01:37:00 Test Item Value Reference Range Interpretation Comments CK MB (test code = CK MB) 1.3 0.5-3.6 [facility] [employer] [id number] 01:37:00 Test Item Value Reference Range Interpretation Comments Total CK (test code = Total CK) 89 12-191 [facility] [employer] [id number] 01:37:00 Test Item Value Reference Range Interpretation Comments CK-MB INDEX (test 1.5 See_Comment [Automate d message] The code = CK-MB INDEX) system w [facility] generated this result transmit marcelle reference range : <=2.5. The reference range was not used to interpr et this result as aranza l/abnormal. [facility] Jaman2017-04-03 01:37:00 Test Item Value Reference Range Interpretation Comments Globulin (test code = Globulin) 3.9 2.7-4.2 [facility] [employer] [id number] 01:37:00 Test Item Value Reference Range Interpretation Comments eGFR (test code = eGFR) 50 [facility] [employer] [id number] 01:37:00 Test Item Value Reference Range Interpretation Comments A/G Ratio (test code = A/G Ratio) 0.9 0.7-1.6 [facility] Jaman2017-04-03 01:37:00 Test Item Value Reference Range Interpretation Comments ALANINE AMINOTRANSFERASE 24 See_Comment [A utomated message] (test code = ALANINE The sys tem which AMINOTRANSFERASE) generated this result transmitted ref erence range: <=65. Th e reference range was not used to int erpret this result as normal/abnormal . [employer]2017-04-03 01:37:00 Test Item Value Reference Range Interpretation Comments Albumin Lvl (test code = Albumin Lvl) 3.7 3.5-5.0 [facility] Jaman2017-04-03 01:37:00 Test Item Value Reference Range Interpretation Comments Alk Phos (test code = Alk Phos) 89 39-136 [facility]2017-04-03 01:37:00 Test Item Value Reference Range Interpretation Comments Glucose Lvl (test code = Glucose Lvl) 112 70-99 [facility]2017-04-03 01:37:00 Test Item Value Reference Range Interpretation Comments BUN (test code = BUN) 10 7-22 [facility]2017-04-03 01:37:00 Test Item Value Reference Range Interpretation Comments Creatinine Lvl (test code = Creatinine 1.28 0.50-1.40 Lvl) [facility]2017-04-03 01:37:00 Test Item Value Reference Range Interpretation Comments CO2 (test code = CO2) 30 24-32 [facility]2017-04-03 01:37:00 Test Item Value Reference Range Interpretation Comments Chloride Lvl (test code = Chloride Lvl) 103 95-109 [facility]2017-04-03 01:37:00 Test Item Value Reference Range Interpretation Comments Calcium Lvl (test code = Calcium Lvl) 9.5 8.5-10.5 [facility]2017-04-03 01:37:00 Test Item Value Reference Range Interpretation Comments AGAP (test code = AGAP) 9.5 10.0-20.0 [facility]2017-04-03 01:37:00 Test Item Value Reference Range Interpretation Comments B/C Ratio (test code = B/C Ratio) 8 6-25 [facility] [facility]00 Test Item Value Reference Range Interpretation Comments Bili Total (test code = Bili Total) 0.7 0.2-1.3 [facility]2017-04-03 01:37:00 Test Item Value Reference Range Interpretation Comments Sodium Lvl (test code = Sodium Lvl) 139 135-145 [facility]2017-04-03 01:37:00 Test Item Value Reference Range Interpretation Comments Potassium Lvl (test code = Potassium 3.5 3.5-5.1 Lvl) [facility]2017-04-03 01:37:00 Test Item Value Reference Range Interpretation Comments Total Protein (test code = Total 7.6 6.4-8.4 Protein) [facility]2017-04-03 01:37:00 Test Item Value Reference Range Interpretation Comments ASPARTATE TRANSAMINASE 14 See_Comment [Aut omated message] (test code = ASPARTATE The s ystem which TRANSAMINASE) generated this result transmitted ref erence range: <=37. Th e reference range was not used to interpr et this result as normal/abnormal . [facility]wallMxpprbpJONAYLRRKP2803-68-09 01:10:00 Test Item Value Reference Range Interpretation Comments MCHC (test code = MCHC) 33.4 32.0-36.0 [facility]wallFxosfsuTVIZZRGTUH8669-26-36 01:10:00 Test Item Value Reference Range Interpretation Comments Platelet (test code = Platelet) 261 133-450 [facility]wallSgfexvkMQGQQTHOVS1848-25-84 01:10:00 Test Item Value Reference Range Interpretation Comments RDW (test code = RDW) 14.7 11.5-14.5 [facility]wallZkwqxpzHMGJODWWCN0197-95-08 01:10:00 Test Item Value Reference Range Interpretation Comments MPV (test code = MPV) 8.1 7.4-10.4 [facility]wallKnvjnalRSGAAZMKJI1142-39-68 01:10:00 Test Item Value Reference Range Interpretation Comments RBC X 10x6 (test code = RBC X 10x6) 5.34 4.20-5.40 [facility]wallQpveurzPRVIQQOBQU6100-34-41 01:10:00 Test Item Value Reference Range Interpretation Comments Hgb (test code = Hgb) 15.5 12.0-16.0 [facility]wallGqywjyfRKSKDXBANZ7749-22-17 01:10:00 Test Item Value Reference Range Interpretation Comments MCV (test code = MCV) 87.0 80.0-98.0 [facility] RockwallAumtlciEIFLKZEMCQ9980-83-46 01:10:00 Test Item Value Reference Range Interpretation Comments Hct (test code = Hct) 46.4 36.0-48.0 [facility]wallWviloqvTQUVHARJOX5886-10-50 01:10:00 Test Item Value Reference Range Interpretation Comments MCH (test code = MCH) 29.1 pg 27.0-31.0 [facility]wallAcwgyqhARZUVALRTE1960-22-36 01:10:00 Test Item Value Reference Range Interpretation Comments WBC X 10x3 (test code = WBC X 10x3) 8.0 3.7-10.4 [place] [id number] 01:10:00 Test Item Value Reference Range Interpretation Comments Basophils # (test code 0.1 See_Comment [Aut omated message] The = Basophils #) system which generated this result tra nsmitted reference range : <=0.2. The reference r melody was not used to int erpret this result as normal/abnormal . [facility] RockwallIgywvvoUFFMCLSCKE9718-49-07 01:10:00 Test Item Value Reference Range Interpretation Comments Lymphocytes # (test code = Lymphocytes 2.0 1.0-5.5 #) [facility]wallRzuozpvYJLROYCFDJ3861-02-00 01:10:00 Test Item Value Reference Range Interpretation Comments Segs-Bands # (test code = Segs-Bands #) 5.1 1.5-8.1 [facility]wallWrgyfokIBSJXCQUSC5510-00-43 01:10:00 Test Item Value Reference Range Interpretation Comments Eosinophils # (test code 0.2 See_Comment [A utomated message] The = Eosinophils #) system whic h generated this result tra nsmitted reference range : <=0.5. The reference r melody was not used to int erpret this result as normal/abnormal . [facility] R[id number] 01:10:00 Test Item Value Reference Range Interpretation Comments Monocytes # (test code 0.8 See_Comment [Aut omated message] The = Monocytes #) system which generated this result tra nsmitted reference range : <=0.8. The reference r melody was not used to int erpret this result as normal/abnormal . [facility] RockwallGoddhlwIUBSRRBXJL9844-40-06 01:10:00 Test Item Value Reference Range Interpretation Comments Segs (test code = Segs) 63.2 45.0-75.0 [facility] RockwallWpngxlxFAVAURBAQX7827-48-43 01:10:00 Test Item Value Reference Range Interpretation Comments Lymphocytes (test code = Lymphocytes) 24.3 20.0-40.0 [facility] RockwallBptqgykREDVNEWDNE4408-07-50 01:10:00 Test Item Value Reference Range Interpretation Comments Eosinophils (test code = 2.1 See_Comment [A utomated message] The Eosinophils) system which ge nerated this result tra nsmitted reference range : <=4.0. The reference r melody was not used to int erpret this result as normal/abnormal . [facility] RockwallMazpebpJJURHPKFNG4197-47-41 01:10:00 Test Item Value Reference Range Interpretation Comments Monocytes (test code = Monocytes) 9.6 2.0-12.0 [facility]efBWXZRLLOTV7432-[facility]-51 01:10:00 Test Item Value Reference Range Interpretation Comments Basophils (test code = 0.8 See_Comment [Aut omated message] The Basophils) system which ge nerated this result tra nsmitted reference range : <=1.0. The reference r melody was not used to int erpret this result as normal/abnormal . [facility]VIR[facility] - [id number] 01:10:00 Test Item Value Reference Range Interpretation Comments Influ B (test code = Negative (11/28/16 8:10 Influ B) PM) [facility] CenterV[facility] - [id number] 01:10:00 Test Item Value Reference Range Interpretation Comments Influ A (test code = Negative (11/28/16 8:10 Influ A) PM) [facility] HospitalAstroloMeAC [id number] 01:15:00 Test Item Value Reference Range Interpretation Comments CK-MB INDEX (test 1.3 See_Comment [Automate d message] The code = CK-MB INDEX) system w [facility] generated this result transmit marcelle reference range : <=2.5. The reference range was not used to interpr et this result as aranza l/abnormal. [facility] CenterGuardian Analytics [id number] 01:15:00 Test Item Value Reference Range Interpretation Comments Troponin-I (test code no gt See_Comment [Auto mated message] The = Troponin-I) system which g enerated this result transmit marcelle reference range : <=0.40. The reference r melody was not used to interpr et this result as aranza l/abnormal. [facility] HospitalChurchkey Can CoCARWalkaboutAC [id number] 01:15:00 Test Item Value Reference Range Interpretation Comments CK MB (test code = CK MB) 1.9 0.5-3.6 [facility] HospitalAstroloMeAC [id number] 01:15:00 Test Item Value Reference Range Interpretation Comments Total CK (test code = Total CK) 144 12-191 [facility] [employer]i Link [id number] 01:15:00 Test Item Value Reference Range Interpretation Comments eGFR (test code = eGFR) 77 [facility]2017-03-12 01:15:00 Test Item Value Reference Range Interpretation Comments ASPARTATE TRANSAMINASE 17 See_Comment [Aut omated message] (test code = ASPARTATE The s ystem which TRANSAMINASE) generated this result transmitted ref erence range: <=37. Th e reference range was not used to interpr et this result as normal/abnormal . [facility]2017-03-12 01:15:00 Test Item Value Reference Range Interpretation Comments Total Protein (test code = Total 6.8 6.4-8.4 Protein) [facility]2017-03-12 01:15:00 Test Item Value Reference Range Interpretation Comments Calcium Lvl (test code = Calcium Lvl) 8.5 8.5-10.5 [facility]2017-03-12 01:15:00 Test Item Value Reference Range Interpretation Comments Bili Total (test code = Bili Total) 0.8 0.2-1.3 [facility]2017-03-12 01:15:00 Test Item Value Reference Range Interpretation Comments Chloride Lvl (test code = Chloride Lvl) 106 95-109 [facility]2017-03-12 01:15:00 Test Item Value Reference Range Interpretation Comments CO2 (test code = CO2) 31 24-32 [facility]2017-03-12 01:15:00 Test Item Value Reference Range Interpretation Comments Potassium Lvl (test code = Potassium 3.1 3.5-5.1 Lvl) [facility]2017-03-12 01:15:00 Test Item Value Reference Range Interpretation Comments Creatinine Lvl (test code = Creatinine 0.90 0.50-1.40 Lvl) [facility]2017-03-12 01:15:00 Test Item Value Reference Range Interpretation Comments Sodium Lvl (test code = Sodium Lvl) 144 135-145 [facility]2017-03-12 01:15:00 Test Item Value Reference Range Interpretation Comments BUN (test code = BUN) 12 7-22 [facility]2017-03-12 01:15:00 Test Item Value Reference Range Interpretation Comments Glucose Lvl (test code = Glucose Lvl) 96 70-99 [facility]2017-03-12 01:15:00 Test Item Value Reference Range Interpretation Comments Albumin Lvl (test code = Albumin Lvl) 3.3 3.5-5.0 [facility]2017-03-12 01:15:00 Test Item Value Reference Range Interpretation Comments Alk Phos (test code = Alk Phos) 76 39-136 [facility]2017-03-12 01:15:00 Test Item Value Reference Range Interpretation Comments ALANINE AMINOTRANSFERASE 20 See_Comment [A utomated message] (test code = ALANINE The sys tem which AMINOTRANSFERASE) generated this result transmitted ref erence range: <=65. Th e reference range was not used to int erpret this result as normal/abnormal . [facility]2017-03-12 01:15:00 Test Item Value Reference Range Interpretation Comments Globulin (test code = Globulin) 3.5 2.7-4.2 [facility]2017-03-12 01:15:00 Test Item Value Reference Range Interpretation Comments A/G Ratio (test code = A/G Ratio) 0.9 0.7-1.6 [place] [id number] 01:15:00 Test Item Value Reference Range Interpretation Comments AGAP (test code = AGAP) 10.1 10.0-20.0 [facility]2017-03-12 01:15:00 Test Item Value Reference Range Interpretation Comments B/C Ratio (test code = B/C Ratio) 13 6-25 [facility]wallHouwjffMYTLCSUXPR5762-51-13 01:15:00 Test Item Value Reference Range Interpretation Comments Eosinophils (test code = 2.8 See_Comment [A utomated message] The Eosinophils) system which ge nerated this result tra nsmitted reference range : <=4.0. The reference r melody was not used to int erpret this result as normal/abnormal . [facility] RockwallGboimncPZKUGAKEIE1636-34-17 01:15:00 Test Item Value Reference Range Interpretation Comments Eosinophils # (test code 0.2 See_Comment [A utomated message] The = Eosinophils #) system whic h generated this result tra nsmitted reference range : <=0.5. The reference r melody was not used to int erpret this result as normal/abnormal . [facility] R[id number] 01:15:00 Test Item Value Reference Range Interpretation Comments Basophils # (test code 0.1 See_Comment [Aut omated message] The = Basophils #) system which generated this result tra nsmitted reference range : <=0.2. The reference r melody was not used to int erpret this result as normal/abnormal . [facility] RockwallLkbenkeCKQTTPVTMS1780-17-74 01:15:00 Test Item Value Reference Range Interpretation Comments Monocytes # (test code 0.7 See_Comment [Aut omated message] The = Monocytes #) system which generated this result tra nsmitted reference range : <=0.8. The reference r melody was not used to int erpret this result as normal/abnormal . [facility] RockwallZydhkxnTJEEQGQOOZ9662-88-59 01:15:00 Test Item Value Reference Range Interpretation Comments Basophils (test code = 0.8 See_Comment [Aut omated message] The Basophils) system which ge nerated this result tra nsmitted reference range : <=1.0. The reference r melody was not used to int erpret this result as normal/abnormal . [facility] RockwallZieolgnPYCECCIKMD8727-19-54 01:15:00 Test Item Value Reference Range Interpretation Comments Segs-Bands # (test code = Segs-Bands #) 4.5 1.5-8.1 [facility] RockwallYjbcpotHCNDYCILYF6006-86-82 01:15:00 Test Item Value Reference Range Interpretation Comments Lymphocytes # (test code = Lymphocytes 2.2 1.0-5.5 #) [facility]wallGctpnkcXQHHLFOQMM1683-68-08 01:15:00 Test Item Value Reference Range Interpretation Comments Segs (test code = Segs) 58.5 45.0-75.0 [facility] RockwallXnmonjcILYQGQMOHT5483-53-44 01:15:00 Test Item Value Reference Range Interpretation Comments Lymphocytes (test code = Lymphocytes) 28.8 20.0-40.0 [facility] RockwallRlmzqyoOCWSFSZJEJ1521-63-52 01:15:00 Test Item Value Reference Range Interpretation Comments Monocytes (test code = Monocytes) 9.1 2.0-12.0 [facility] RockwallYfmnoekSOOUYGOBFC4419-96-84 01:15:00 Test Item Value Reference Range Interpretation Comments Platelet (test code = Platelet) 196 133-450 [facility] RockwallAhgyztcZNBVWKPBRA0534-09-73 01:15:00 Test Item Value Reference Range Interpretation Comments RDW (test code = RDW) 14.3 11.5-14.5 [facility] RockwallWsyktixDEBZDFJVTR0592-03-98 01:15:00 Test Item Value Reference Range Interpretation Comments MPV (test code = MPV) 8.1 7.4-10.4 [facility] RockwallCodaukjVQANMQNZIX7175-08-04 01:15:00 Test Item Value Reference Range Interpretation Comments WBC X 10x3 (test code = WBC X 10x3) 7.7 3.7-10.4 [facility] RockwallMechrhzHPTCKBXCYZ6842-71-34 01:15:00 Test Item Value Reference Range Interpretation Comments Hgb (test code = Hgb) 13.1 12.0-16.0 [facility] RockwallGjbiwpxASLGFJVZEH6905-44-25 01:15:00 Test Item Value Reference Range Interpretation Comments RBC X 10x6 (test code = RBC X 10x6) 4.48 4.20-5.40 [facility] RockwallSkxkgudCVLHZWEQSY1694-80-70 01:15:00 Test Item Value Reference Range Interpretation Comments MCH (test code = MCH) 29.3 pg 27.0-31.0 [facility] RockwallTbjrzhjZKJRIVZCVT6360-14-64 01:15:00 Test Item Value Reference Range Interpretation Comments Hct (test code = Hct) 39.1 36.0-48.0 [facility] R[id number] 01:15:00 Test Item Value Reference Range Interpretation Comments MCV (test code = MCV) 87.3 80.0-98.0 [facility] RockwallToodfuaDFDYTNXCZW4262-74-69 01:15:00 Test Item Value Reference Range Interpretation Comments MCHC (test code = MCHC) 33.6 32.0-36.0 [facility] CenterDR[facility] [id number] 11:24:00 Test Item Value Reference Range Interpretation Comments U Benzodia Scr (test Negative *NA*(10/11/16 code = U Benzodia Scr) 5:24 AM) [facility] HospitalannDR[facility] [id number] 11:24:00 Test Item Value Reference Range Interpretation Comments U Keyla Scr (test code Negative *NA*(10/11/16 = U Keyla Scr) 5:24 AM) [facility] HospitalannDR[facility] [id number] 11:24:00 Test Item Value Reference Range Interpretation Comments U Amph Scr (test code Negative *NA*(10/11/16 = U Amph Scr) 5:24 AM) [facility] HospitalannDR[facility] [id number] 11:24:00 Test Item Value Reference Range Interpretation Comments U Cannab Scr (test Negative *NA*(10/11/16 code = U Cannab Scr) 5:24 AM) [facility] [id number] 11:24:00 Test Item Value Reference Range Interpretation Comments U Cocaine Scr (test Positive *ABN*(10/11/16 code = U Cocaine Scr) 5:24 AM) [facility] [id number] 11:24:00 Test Item Value Reference Range Interpretation Comments UDS Note (test code = See Note (10/11/16 5:24 UDS Note) AM) [facility] [id number] 11:24:00 Test Item Value Reference Range Interpretation Comments U Opiate Scr (test Negative *NA*(10/11/16 code = U Opiate Scr) 5:24 AM) [facility] [id number] 11:24:00 Test Item Value Reference Range Interpretation Comments U Phencyc Scr (test Negative *NA*(10/11/16 code = U Phencyc Scr) 5:24 AM) [facility] CenterCARDIAC [id number] 09:58:00 Test Item Value Reference Range Interpretation Comments Troponin-I (test code no gt See_Comment [Auto mated message] The = Troponin-I) system which g enerated this result transmit marcelle reference range : <=0.40. The reference r melody was not used to interpr et this result as aranza l/abnormal. [facility] CenterFufcluzGLWCMJPHSV1346-07-96 09:58:00 Test Item Value Reference Range Interpretation Comments Eosinophils # (test code 0.4 See_Comment [A utomated message] The = Eosinophils #) system whic h generated this result tra nsmitted reference range : <=0.5. The reference r melody was not used to int erpret this result as normal/abnormal . [facility] HospitalYdqpuppDODUDAFSHM5466-38-07 09:58:00 Test Item Value Reference Range Interpretation Comments Basophils # (test code 0.1 See_Comment [Aut omated message] The = Basophils #) system which generated this result tra nsmitted reference range : <=0.2. The reference r melody was not used to int erpret this result as normal/abnormal . [facility] HealthcareMbqqvenZFFTIBGIML7357-38-63 09:58:00 Test Item Value Reference Range Interpretation Comments Eosinophils (test code = 6.3 See_Comment [A utomated message] The Eosinophils) system which ge nerated this result tra nsmitted reference range : <=4.0. The reference r melody was not used to int erpret this result as normal/abnormal . [facility] RockwallBvpsueoJSNLYXMJLN9342-37-18 09:58:00 Test Item Value Reference Range Interpretation Comments Basophils (test code = 1.0 See_Comment [Aut omated message] The Basophils) system which ge nerated this result tra nsmitted reference range : <=1.0. The reference r melody was not used to int erpret this result as normal/abnormal . [facility] RockwallAnasivqDVKNWWGENH7024-68-68 09:58:00 Test Item Value Reference Range Interpretation Comments Segs-Bands # (test code = Segs-Bands #) 2.7 1.5-8.1 [facility] RockwallStxbyevHKCHTOKWDF6757-74-40 09:58:00 Test Item Value Reference Range Interpretation Comments Lymphocytes # (test code = Lymphocytes 2.1 1.0-5.5 #) [facility]wallCdrkwnwWZPMQYLVIH7377-96-77 09:58:00 Test Item Value Reference Range Interpretation Comments Monocytes # (test code 0.6 See_Comment [Aut omated message] The = Monocytes #) system which generated this result tra nsmitted reference range : <=0.8. The reference r melody was not used to int erpret this result as normal/abnormal . [facility] RockwallOpwalybPSDGTDSAZV7935-68-94 09:58:00 Test Item Value Reference Range Interpretation Comments Lymphocytes (test code = Lymphocytes) 36.3 20.0-40.0 [facility] RockwallUwfsadcCOTRDWIYBJ0579-50-82 09:58:00 Test Item Value Reference Range Interpretation Comments Segs (test code = Segs) 46.0 45.0-75.0 [facility] RockwallMjpncyoWCYXOMECEU3298-71-43 09:58:00 Test Item Value Reference Range Interpretation Comments Monocytes (test code = Monocytes) 10.4 2.0-12.0 [facility] RockwallXywtbjkIIKAFWPGIT8490-64-10 09:58:00 Test Item Value Reference Range Interpretation Comments MPV (test code = MPV) 8.7 7.4-10.4 [facility] RockwallYyqobyhFPVHFACSXH8192-24-78 09:58:00 Test Item Value Reference Range Interpretation Comments Platelet (test code = Platelet) 194 133-450 [facility] RockwallMmogfbpJHODTBLPMS9420-22-78 09:58:00 Test Item Value Reference Range Interpretation Comments MCH (test code = MCH) 29.3 pg 27.0-31.0 [facility] RockwallXhegoeaSMBFCYLDKV1855-57-30 09:58:00 Test Item Value Reference Range Interpretation Comments MCV (test code = MCV) 87.2 80.0-98.0 [facility] RockwallClaktldPQCPZYKHFV5163-80-31 09:58:00 Test Item Value Reference Range Interpretation Comments RDW (test code = RDW) 14.4 11.5-14.5 [facility] RockwallXfbwbqhMOIQAWJFBP2288-88-07 09:58:00 Test Item Value Reference Range Interpretation Comments MCHC (test code = MCHC) 33.6 32.0-36.0 [facility] RockwallBiyohbtKLYDJKPCAG3544-03-20 09:58:00 Test Item Value Reference Range Interpretation Comments Hgb (test code = Hgb) 13.1 12.0-16.0 [facility] RockwallEoveodqYSEFCKJRPT5456-02-36 09:58:00 Test Item Value Reference Range Interpretation Comments RBC (test code = RBC) 4.45 4.20-5.40 [facility] RockwallXvmhgkbSGLZVKOHPK4423-96-74 09:58:00 Test Item Value Reference Range Interpretation Comments Hct (test code = Hct) 38.8 36.0-48.0 [facility] RockwallHjsotypZUORERYWEV1370-17-39 09:58:00 Test Item Value Reference Range Interpretation Comments WBC (test code = WBC) 5.8 3.7-10.4 [facility]XkndeoeHXFPSJ6402-10-98 09:58:00 Test Item Value Reference Range Interpretation Comments CHD Risk (test code = CHD Risk) 2.84 3.90-5.80 [facility] CleburneAanygbzXUSSDQ3404-44-02 09:58:00 Test Item Value Reference Range Interpretation Comments VLDL (test code = VLDL) 14 [facility]neNslfwksAYLIDZ5905-51-62 09:58:00 Test Item Value Reference Range Interpretation Comments LDL (Calculated) (test code = LDL 87 (Calculated)) [facility] CleburneLeqyivrYOMZWB8834-11-40 09:58:00 Test Item Value Reference Range Interpretation Comments Trig (test code = Trig) 71 [facility] CleburneVqrrwjcDECWRV1277-96-04 09:58:00 Test Item Value Reference Range Interpretation Comments Chol (test code = Chol) 156 [facility] HospitalOsaixwoYNVYBV1382-28-86 09:58:00 Test Item Value Reference Range Interpretation Comments HDL (test code = HDL) 55 [facility] CenterCARAC [id number] 00:00:00 Test Item Value Reference Range Interpretation Comments Troponin-I (test code no gt See_Comment [Auto mated message] The = Troponin-I) system which g enerated this result transmit marcelle reference range : <=0.40. The reference r melody was not used to interpr et this result as aranza l/abnormal. [facility] RVNTJGJ6028-20-93 19:10:33 Test Item Value Reference Range Interpretation Comments Troponin-I (test code no gt See_Comment [Auto mated message] The = Troponin-I) system which g enerated this result transmit marcelle reference range : <=0.40. The reference r melody was not used to interpr et this result as aranza l/abnormal. [facility] CenterWiseBanyan [id number] 19:10:33 Test Item Value Reference Range Interpretation Comments eGFR (test code = eGFR) 92 [facility]2017-02-12 19:10:33 Test Item Value Reference Range Interpretation Comments BUN (test code = BUN) 8 7-22 [facility]2017-02-12 19:10:33 Test Item Value Reference Range Interpretation Comments Creatinine Lvl (test code = Creatinine 0.78 0.50-1.40 Lvl) [facility]2017-02-12 19:10:33 Test Item Value Reference Range Interpretation Comments Glucose Lvl (test code = Glucose Lvl) 108 70-99 [facility]2017-02-12 19:10:33 Test Item Value Reference Range Interpretation Comments Potassium Lvl (test code = Potassium 3.2 3.5-5.1 Lvl) [facility]2017-02-12 19:10:33 Test Item Value Reference Range Interpretation Comments Calcium Lvl (test code = Calcium Lvl) 9.3 8.5-10.5 [facility]2017-02-12 19:10:33 Test Item Value Reference Range Interpretation Comments CO2 (test code = CO2) 31 24-32 [facility]2017-02-12 19:10:33 Test Item Value Reference Range Interpretation Comments Sodium Lvl (test code = Sodium Lvl) 143 135-145 [facility]2017-02-12 19:10:33 Test Item Value Reference Range Interpretation Comments Chloride Lvl (test code = Chloride Lvl) 108 95-109 [facility]2017-02-12 19:10:33 Test Item Value Reference Range Interpretation Comments AGAP (test code = AGAP) 7.2 10.0-20.0 [facility]wallBofebcfVTFDFAEKHS8591-64-42 19:10:33 Test Item Value Reference Range Interpretation Comments MCHC (test code = MCHC) 33.8 32.0-36.0 [facility]wallDbvepgrVXWHNCLZIN1010-43-80 19:10:33 Test Item Value Reference Range Interpretation Comments RDW (test code = RDW) 14.2 11.5-14.5 [facility]wallEzcgtniSWSSITKJHP8780-07-69 19:10:33 Test Item Value Reference Range Interpretation Comments MCH (test code = MCH) 29.4 pg 27.0-31.0 [facility]wallGsugnoqBJDSWASXZP6792-52-42 19:10:33 Test Item Value Reference Range Interpretation Comments MCV (test code = MCV) 87.0 80.0-98.0 [facility]wallHntlmbvFUGBDZHDOB6253-56-94 19:10:33 Test Item Value Reference Range Interpretation Comments Hgb (test code = Hgb) 13.5 12.0-16.0 [facility]wallBrddcvsPDTSENGQGY2423-08-40 19:10:33 Test Item Value Reference Range Interpretation Comments Hct (test code = Hct) 39.8 36.0-48.0 [facility]wallClrvbpsTGIFZIPQNA2596-90-69 19:10:33 Test Item Value Reference Range Interpretation Comments Platelet (test code = Platelet) 208 133-450 [facility] RockwallJkzwbutHOSYQBUPSY7193-25-34 19:10:33 Test Item Value Reference Range Interpretation Comments MPV (test code = MPV) 8.7 7.4-10.4 [facility]wallOvclzziINJOWCNBLC1702-94-61 19:10:33 Test Item Value Reference Range Interpretation Comments WBC (test code = WBC) 6.6 3.7-10.4 [facility]wallVpqjsewLKBTNBVVQT3822-45-87 19:10:33 Test Item Value Reference Range Interpretation Comments RBC (test code = RBC) 4.58 4.20-5.40 [facility] RockwallVnyfrrdEUOLFVZAMO7712-10-44 19:10:33 Test Item Value Reference Range Interpretation Comments Lymphocytes # (test code = Lymphocytes 1.8 1.0-5.5 #) [facility] RockwallHgoivboPKNWKOBIEA2872-90-15 19:10:33 Test Item Value Reference Range Interpretation Comments Monocytes # (test code 0.6 See_Comment [Aut omated message] The = Monocytes #) system which generated this result tra nsmitted reference range : <=0.8. The reference r melody was not used to int erpret this result as normal/abnormal . [facility] RockwallVanqlauXLEQMKVAML6537-63-99 19:10:33 Test Item Value Reference Range Interpretation Comments Eosinophils # (test code 0.3 See_Comment [A utomated message] The = Eosinophils #) system whic h generated this result tra nsmitted reference range : <=0.5. The reference r melody was not used to int erpret this result as normal/abnormal . [facility] RockwallAssjhvnGKXUHVWXAW3970-53-89 19:10:33 Test Item Value Reference Range Interpretation Comments Basophils (test code = 0.6 See_Comment [Aut omated message] The Basophils) system which ge nerated this result tra nsmitted reference range : <=1.0. The reference r melody was not used to int erpret this result as normal/abnormal . [facility] RockwallPsipdbtDBLSNGNOEA4072-55-50 19:10:33 Test Item Value Reference Range Interpretation Comments Segs-Bands # (test code = Segs-Bands #) 3.9 1.5-8.1 [facility] RockwallTodxdhjWKEFEFCTAE3205-78-03 19:10:33 Test Item Value Reference Range Interpretation Comments Monocytes (test code = Monocytes) 9.0 2.0-12.0 [facility] RockwallYkoevcmESIEHNOILD9985-84-50 19:10:33 Test Item Value Reference Range Interpretation Comments Eosinophils (test code = 4.1 See_Comment [A utomated message] The Eosinophils) system which ge nerated this result tra nsmitted reference range : <=4.0. The reference r melody was not used to int erpret this result as normal/abnormal . [facility] RockwallJettpwbEICVDAGEYY0863-86-86 19:10:33 Test Item Value Reference Range Interpretation Comments Segs (test code = Segs) 59.5 45.0-75.0 [facility] CenterRkbnahuDZLEKPOCDC8122-90-80 19:10:33 Test Item Value Reference Range Interpretation Comments Lymphocytes (test code = Lymphocytes) 26.8 20.0-40.0 [facility] CenterCARDIAC HNDKDYC2094-15-24 04:07:00 Test Item Value Reference Range Interpretation Comments Troponin-I (test code no gt See_Comment [Auto mated message] The = Troponin-I) system which g enerated this result transmit marcelle reference range : <=0.40. The reference r melody was not used to interpr et this result as aranza l/abnormal. [facility]aznbhkTSXCXESKAYGW5107-88-[facility] 04:07:00 Test Item Value Reference Range Interpretation Comments AGAP (test code = AGAP) 13.5 10.0-20.0 [facility] HospitalBwexxoeQGQQYKLSFSVY4629-60-91 04:07:00 Test Item Value Reference Range Interpretation Comments eGFR (test code = eGFR) 79 [facility] HospitalJcdhxdsLAOWUQHDYVDJ6786-04-52 04:07:00 Test Item Value Reference Range Interpretation Comments Creatinine Lvl (test code = Creatinine 0.89 0.50-1.40 Lvl) [facility] HospitalHmwffbsQCOYNDWZGWIU9505-15-62 04:07:00 Test Item Value Reference Range Interpretation Comments BUN (test code = BUN) 9 7-22 [facility] HospitalOtavilrQVGZCDBTAIBQ9495-65-05 04:07:00 Test Item Value Reference Range Interpretation Comments Glucose Lvl (test code = Glucose Lvl) 72 70-99 [facility] HospitalRmvemfsGEHDURXLYKYD7469-02-41 04:07:00 Test Item Value Reference Range Interpretation Comments Chloride Lvl (test code = Chloride Lvl) 107 95-109 [facility] HospitalBgiysvaBNWLZMRFEZJJ1812-22-48 04:07:00 Test Item Value Reference Range Interpretation Comments CO2 (test code = CO2) 25 24-32 [facility] HospitalZroicuxHXFHQVFPEQFF2113-74-56 04:07:00 Test Item Value Reference Range Interpretation Comments Calcium Lvl (test code = Calcium Lvl) 8.9 8.5-10.5 [facility] HospitalMxwhljbAXEUAFDJFSYS5545-91-55 04:07:00 Test Item Value Reference Range Interpretation Comments Sodium Lvl (test code = Sodium Lvl) 142 135-145 [facility] HospitalPtaccjsICEMZBAEDTAK2449-55-15 04:07:00 Test Item Value Reference Range Interpretation Comments Potassium Lvl (test code = Potassium 3.5 3.5-5.1 Lvl) [facility]wallMoaojyoYQQUDRBURG7938-33-56 04:07:00 Test Item Value Reference Range Interpretation Comments Platelet (test code = Platelet) 181 133-450 [facility] RockwallGddbagfGRCZYULYHQ7422-87-47 04:07:00 Test Item Value Reference Range Interpretation Comments MPV (test code = MPV) 8.5 7.4-10.4 [facility] RockwallDmvlmmzBHCUSCLRLO5773-68-00 04:07:00 Test Item Value Reference Range Interpretation Comments MCHC (test code = MCHC) 33.5 32.0-36.0 [facility] RockwallFhmxyfxWBUYGBWAZR6146-86-49 04:07:00 Test Item Value Reference Range Interpretation Comments MCH (test code = MCH) 28.7 pg 27.0-31.0 [facility] RockwallKizllyuTGQIHRFOMC3124-73-52 04:07:00 Test Item Value Reference Range Interpretation Comments RDW (test code = RDW) 15.0 11.5-14.5 [facility] RockwallRxityuwOXNVYVCEZQ9340-35-36 04:07:00 Test Item Value Reference Range Interpretation Comments Hct (test code = Hct) 38.3 36.0-48.0 [facility] RockwallBdzjlpnBGKSXRUHQE7782-14-59 04:07:00 Test Item Value Reference Range Interpretation Comments MCV (test code = MCV) 85.6 80.0-98.0 [facility] RockwallLmqmstsTAUOOABPMM1302-54-91 04:07:00 Test Item Value Reference Range Interpretation Comments Hgb (test code = Hgb) 12.9 12.0-16.0 [facility] RockwallStxzkggOJHWJUHIAZ7871-09-46 04:07:00 Test Item Value Reference Range Interpretation Comments RBC (test code = RBC) 4.48 4.20-5.40 [facility] RockwallNprbncaWFOHRMOXSA1094-95-14 04:07:00 Test Item Value Reference Range Interpretation Comments WBC (test code = WBC) 5.6 3.7-10.4 [facility] RockwallQsxaugoQBFACEJXVP2567-29-91 04:07:00 Test Item Value Reference Range Interpretation Comments Basophils # (test code 0.1 See_Comment [Aut omated message] The = Basophils #) system which generated this result tra nsmitted reference range : <=0.2. The reference r melody was not used to int erpret this result as normal/abnormal . [facility] RockwallAungebiFYHLLIEEBP9895-16-08 04:07:00 Test Item Value Reference Range Interpretation Comments Lymphocytes # (test code = Lymphocytes 2.2 1.0-5.5 #) [facility] RockwallRtziaqhKBPTMNRTRP7905-16-43 04:07:00 Test Item Value Reference Range Interpretation Comments Eosinophils # (test code 0.3 See_Comment [A utomated message] The = Eosinophils #) system whic h generated this result tra nsmitted reference range : <=0.5. The reference r melody was not used to int erpret this result as normal/abnormal . [facility] RockwallKwwxvtdMDCEJPTQIH6464-37-30 04:07:00 Test Item Value Reference Range Interpretation Comments Monocytes # (test code 0.5 See_Comment [Aut omated message] The = Monocytes #) system which generated this result tra nsmitted reference range : <=0.8. The reference r melody was not used to int erpret this result as normal/abnormal . [facility] RockwallQswkvodHVYVWEVOCW6473-55-20 04:07:00 Test Item Value Reference Range Interpretation Comments Eosinophils (test code = 6.1 See_Comment [A utomated message] The Eosinophils) system which ge nerated this result tra nsmitted reference range : <=4.0. The reference r melody was not used to int erpret this result as normal/abnormal . [facility] RockwallNenwpdyCOHQDSRAYT3915-83-13 04:07:00 Test Item Value Reference Range Interpretation Comments Basophils (test code = 1.1 See_Comment [Aut omated message] The Basophils) system which ge nerated this result tra nsmitted reference range : <=1.0. The reference r melody was not used to int erpret this result as normal/abnormal . [facility] RockwallDmxvdybQDRUPKDVRE9539-75-94 04:07:00 Test Item Value Reference Range Interpretation Comments Segs-Bands # (test code = Segs-Bands #) 2.5 1.5-8.1 [facility] RockwallHyrokpcKQTIYMDFNP5722-66-13 04:07:00 Test Item Value Reference Range Interpretation Comments Lymphocytes (test code = Lymphocytes) 38.8 20.0-40.0 [facility] RockwallOeyzcxlUYPRMWVBFH2900-96-22 04:07:00 Test Item Value Reference Range Interpretation Comments Monocytes (test code = Monocytes) 9.2 2.0-12.0 [facility] CenterQaisxrgGCEOVNQFCE7647-04-09 04:07:00 Test Item Value Reference Range Interpretation Comments Segs (test code = Segs) 44.8 45.0-75.0 [facility]BdnekcoRHUHIQJZHJ6986-32-60 04:07:00 Test Item Value Reference Range Interpretation Comments Ethanol Lvl (test code = Ethanol Lvl) 8 [facility] TexasEkooshcJFTKIVQNUD6305-36-42 04:07:00 Test Item Value Reference Range Interpretation Comments Etoh (%) (test code = Etoh (%)) 0.008 [facility] CenterCARDIAC HUYPJEY3254-14-75 11:47:00 Test Item Value Reference Range Interpretation Comments Troponin-I (test code no gt See_Comment [Auto mated message] The = Troponin-I) system which g enerated this result transmit marcelle reference range : <=0.40. The reference r melody was not used to interpr et this result as aranza l/abnormal. [facility] HospitalCalzykhBHGKMR2886-30-35 11:47:00 Test Item Value Reference Range Interpretation Comments CHD Risk (test code = CHD Risk) 3.39 3.90-5.80 [facility] HospitalCdlwwytBMWIKQ0238-36-34 11:47:00 Test Item Value Reference Range Interpretation Comments VLDL (test code = VLDL) 18 [facility] CenterArtoaowGMMJQX5610-07-38 11:47:00 Test Item Value Reference Range Interpretation Comments LDL (Calculated) (test code = LDL 73 (Calculated)) [facility] HospitalMqpvvpnPXEYQU0333-17-39 11:47:00 Test Item Value Reference Range Interpretation Comments Trig (test code = Trig) 90 [facility] HospitalCccofnfZVAERB0361-99-34 11:47:00 Test Item Value Reference Range Interpretation Comments Chol (test code = Chol) 129 [facility] HospitalSpsxxwnHMFEQZ6697-83-12 11:47:00 Test Item Value Reference Range Interpretation Comments HDL (test code = HDL) [address] [facility] FHMAGHPVA7226-99-35 11:47:00 Test Item Value Reference Range Interpretation Comments Hgb A1C (test code = Hgb A1C) 5.9 [facility] CenterCARDIAC RVHBZBA9316-45-13 02:33:00 Test Item Value Reference Range Interpretation Comments Total CK (test code = Total CK) 81 12-191 [facility] NGZIDZJ0423-91-89 02:33:00 Test Item Value Reference Range Interpretation Comments Troponin-I (test code 0.02 See_Comment [Auto mated message] The = Troponin-I) system which g enerated this result transmit marcelle reference range : <=0.40. The reference r melody was not used to interpr et this result as aranza l/abnormal. [facility] YFUYNKS6896-34-47 02:33:00 Test Item Value Reference Range Interpretation Comments CK-MB INDEX (test 1.6 See_Comment [Automate d message] The code = CK-MB INDEX) system w [employer] generated this result transmit marcelle reference range : <=2.5. The reference range was not used to interpr et this result as aranza l/abnormal. [facility] OFNIMZF7201-14-64 02:33:00 Test Item Value Reference Range Interpretation Comments CK MB (test code = CK MB) 1.3 0.5-3.6 [facility] CenterLhjfqjhUJYPWMBITH8689-59-85 21:03:00 Test Item Value Reference Range Interpretation Comments PROTIME (test code = PROTIME) 14.0 s 12.0-14.7 [facility] CenterMiytxldAZXTPHBRKW7776-93-24 21:03:00 Test Item Value Reference Range Interpretation Comments INR (test code = INR) 1.05 0.85-1.17 [facility]TipwouaNLKFWXTILJ8685-34-05 21:03:00 Test Item Value Reference Range Interpretation Comments aPTT (test code = aPTT) 38.7 s 22.9-35.8 [facility] CenterNemyyabLFVAEIVGWY0188-06-13 21:03:00 Test Item Value Reference Range Interpretation Comments D-Dimer (test code = D-Dimer) 0.49 [facility] ZYTFPXL9953-70-81 20:14:00 Test Item Value Reference Range Interpretation Comments CK-MB INDEX (test 1.6 See_Comment [Automate d message] The code = CK-MB INDEX) system w [employer] generated this result transmit marcelle reference range : <=2.5. The reference range was not used to interpr et this result as aranza l/abnormal. [facility] CenterThinknumTHE MEDICAL CENTER AGOITHM8206-25-64 20:14:00 Test Item Value Reference Range Interpretation Comments CK MB (test code = CK MB) 1.3 0.5-3.6 [employer]CAR[employer]AC IFPPBSK6428-43-78 20:14:00 Test Item Value Reference Range Interpretation Comments Troponin-I (test code no gt See_Comment [Auto mated message] The = Troponin-I) system which g enerated this result transmit marcelle reference range : <=0.40. The reference r melody was not used to interpr et this result as aranza l/abnormal. [facility] XUZDNPU1008-83-25 20:14:00 Test Item Value Reference Range Interpretation Comments Total CK (test code = Total CK) 83 12-191 [facility] [employer]AC [id number] 20:14:00 Test Item Value Reference Range Interpretation Comments proBNP (test code = 50 See_Comment [Automa marcelle message] The proBNP) system which ge nerated this result tra nsmitted reference range : <=125. The reference r melody was not used to int erpret this result as aranza l/abnormal. [employer] [id number] 20:14:00 Test Item Value Reference Range Interpretation Comments Lipase Lvl (test code = Lipase Lvl) 196 73-393 [facility] [employer] [id number] 20:14:00 Test Item Value Reference Range Interpretation Comments eGFR (test code = eGFR) 110 [facility] [employer] [id number] 20:14:00 Test Item Value Reference Range Interpretation Comments Globulin (test code = Globulin) 2.8 2.0-4.0 [employer] [id number] 20:14:00 Test Item Value Reference Range Interpretation Comments A/G Ratio (test code = A/G Ratio) 1.2 0.7-1.6 [employer] [id number] 20:14:00 Test Item Value Reference Range Interpretation Comments B/C Ratio (test code = B/C Ratio) 15 6-25 [employer] [id number] 20:14:00 Test Item Value Reference Range Interpretation Comments AGAP (test code = AGAP) 10.4 10.0-20.0 [employer] [id number] 20:14:00 Test Item Value Reference Range Interpretation Comments ASPARTATE TRANSAMINASE 14 See_Comment [Aut omated message] (test code = ASPARTATE The s ystem which TRANSAMINASE) generated this result transmitted ref erence range: <=37. Th e reference range was not used to interpr et this result as normal/abnormal . [facility]2016-07-14 20:14:00 Test Item Value Reference Range Interpretation Comments Total Protein (test code = Total 6.1 6.4-8.4 Protein) [facility]2016-07-14 20:14:00 Test Item Value Reference Range Interpretation Comments Bili Total (test code = Bili Total) 0.5 0.2-1.3 [facility]2016-07-14 20:14:00 Test Item Value Reference Range Interpretation Comments Calcium Lvl (test code = Calcium Lvl) 7.7 8.5-10.5 [facility]2016-07-14 20:14:00 Test Item Value Reference Range Interpretation Comments CO2 (test code = CO2) 26 24-32 [facility]2016-07-14 20:14:00 Test Item Value Reference Range Interpretation Comments Chloride Lvl (test code = Chloride Lvl) 110 95-109 [facility]2016-07-14 20:14:00 Test Item Value Reference Range Interpretation Comments Potassium Lvl (test code = Potassium 3.4 3.5-5.1 Lvl) [facility]2016-07-14 20:14:00 Test Item Value Reference Range Interpretation Comments Sodium Lvl (test code = Sodium Lvl) 143 135-145 [facility]2016-07-14 20:14:00 Test Item Value Reference Range Interpretation Comments Creatinine Lvl (test code = Creatinine 0.61 0.50-1.40 Lvl) [facility]2016-07-14 20:14:00 Test Item Value Reference Range Interpretation Comments BUN (test code = BUN) 9 7-22 [facility]2016-07-14 20:14:00 Test Item Value Reference Range Interpretation Comments Alk Phos (test code = Alk Phos) 76 39-136 [facility]2016-07-14 20:14:00 Test Item Value Reference Range Interpretation Comments Glucose Lvl (test code = Glucose Lvl) 88 70-99 [facility]2016-07-14 20:14:00 Test Item Value Reference Range Interpretation Comments Albumin Lvl (test code = Albumin Lvl) 3.3 3.5-5.0 [facility]2016-07-14 20:14:00 Test Item Value Reference Range Interpretation Comments ALANINE AMINOTRANSFERASE 15 See_Comment [A utomated message] (test code = ALANINE The sys tem which AMINOTRANSFERASE) generated this result transmitted ref erence range: <=65. Th e reference range was not used to int erpret this result as normal/abnormal . [facility]wallKruhtkpBBBPASMTVS7746-86-80 20:14:00 Test Item Value Reference Range Interpretation Comments Lymphocytes # (test code = Lymphocytes 1.8 1.0-5.5 #) [facility]wallYaukfduFYSYYRWBGD7315-16-39 20:14:00 Test Item Value Reference Range Interpretation Comments Monocytes # (test code 0.5 See_Comment [Aut omated message] The = Monocytes #) system which generated this result tra nsmitted reference range : <=0.8. The reference r melody was not used to int erpret this result as normal/abnormal . [facility] RockwallCfijfjpPXCZTRCSRA4481-04-56 20:14:00 Test Item Value Reference Range Interpretation Comments Basophils (test code = 1.0 See_Comment [Aut omated message] The Basophils) system which ge nerated this result tra nsmitted reference range : <=1.0. The reference r melody was not used to int erpret this result as normal/abnormal . [facility] RockwallJcsnukpLENZXVATIG2221-23-72 20:14:00 Test Item Value Reference Range Interpretation Comments Segs-Bands # (test code = Segs-Bands #) 4.1 1.5-8.1 [facility] RockwallVezggevNELBLZZMXO1005-10-42 20:14:00 Test Item Value Reference Range Interpretation Comments Eosinophils # (test code 0.2 See_Comment [A utomated message] The = Eosinophils #) system whic h generated this result tra nsmitted reference range : <=0.5. The reference r melody was not used to int erpret this result as normal/abnormal . [facility] RockwallSdjsyydTBWZOMJZWF1684-05-79 20:14:00 Test Item Value Reference Range Interpretation Comments Basophils # (test code 0.1 See_Comment [Aut omated message] The = Basophils #) system which generated this result tra nsmitted reference range : <=0.2. The reference r melody was not used to int erpret this result as normal/abnormal . [facility] RockwallHruooezILUSWHMMZO0112-24-46 20:14:00 Test Item Value Reference Range Interpretation Comments Segs (test code = Segs) 61.4 45.0-75.0 [facility] RockwallVzntocaWXJSGJWNSS4766-96-05 20:14:00 Test Item Value Reference Range Interpretation Comments Eosinophils (test code = 3.5 See_Comment [A utomated message] The Eosinophils) system which ge nerated this result tra nsmitted reference range : <=4.0. The reference r melody was not used to int erpret this result as normal/abnormal . [facility] RockwallIrqixxiJHKOJELIQI5195-77-53 20:14:00 Test Item Value Reference Range Interpretation Comments Lymphocytes (test code = Lymphocytes) 26.6 20.0-40.0 [facility] RockwallTkjhyyrAQTWXMCLHF8392-53-09 20:14:00 Test Item Value Reference Range Interpretation Comments Monocytes (test code = Monocytes) 7.5 2.0-12.0 [facility] RockwallJivvxqiNBTPEVDJCU1283-17-34 20:14:00 Test Item Value Reference Range Interpretation Comments WBC X 10x3 (test code = WBC X 10x3) 6.7 3.7-10.4 [facility] RockwallJocssanIHVYHAVKFF6257-56-81 20:14:00 Test Item Value Reference Range Interpretation Comments Hgb (test code = Hgb) 12.2 12.0-16.0 [facility] RockwallXcwsbeoTDRJBAGQUX2179-09-26 20:14:00 Test Item Value Reference Range Interpretation Comments RBC X 10x6 (test code = RBC X 10x6) 4.26 4.20-5.40 [facility] RockwallWlbfwrfUAKVAUYIDO6988-26-02 20:14:00 Test Item Value Reference Range Interpretation Comments MCH (test code = MCH) 28.7 pg 27.0-31.0 [facility] RockwallYhlvdbyNODZTTMMTC6741-48-08 20:14:00 Test Item Value Reference Range Interpretation Comments MCV (test code = MCV) 86.0 80.0-98.0 [facility] RockwallElkbzjeGXICRMHXGA8648-19-88 20:14:00 Test Item Value Reference Range Interpretation Comments RDW (test code = RDW) 14.9 11.5-14.5 [facility] RockwallOsfrsbsGSCYUUSXHS4026-77-16 20:14:00 Test Item Value Reference Range Interpretation Comments MCHC (test code = MCHC) 33.3 32.0-36.0 [facility] RockwallPdomjleBQPHHPUEIE7978-98-96 20:14:00 Test Item Value Reference Range Interpretation Comments Hct (test code = Hct) 36.6 36.0-48.0 [id number] 20:14:00 Test Item Value Reference Range Interpretation Comments MPV (test code = MPV) 8.7 7.4-10.4 [facility]wallPhhqocpOTRYIPNTJV0743-03-26 20:14:00 Test Item Value Reference Range Interpretation Comments Platelet (test code = Platelet) 171 133-450 [facility] AND [id number] 20:14:00 Test Item Value Reference Range Interpretation Comments UA WBC (test code = UA WBC) 0-2 /HPF [facility] AND [id number] 20:14:00 Test Item Value Reference Range Interpretation Comments UA Nitrite (test code Negative (03/11/16 3:14 = UA Nitrite) PM) [facility] AND [id number] 20:14:00 Test Item Value Reference Range Interpretation Comments UA Leuk Est (test Negative (03/11/16 3:14 code = UA Leuk Est) PM) [facility] AND [id number] 20:14:00 Test Item Value Reference Range Interpretation Comments UA Bacteria (test code = UA Occasional /HPF Bacteria) [facility] AND [id number] 20:14:00 Test Item Value Reference Range Interpretation Comments UA RBC (test code = 0-2 /HPF See_Comment [Automa marcelle message] The UA RBC) system which ge nerated this result tra nsmitted reference range : <=2. The reference range was not used to interpr et this result as aranza l/abnormal. [facility] AND [id number] 20:14:00 Test Item Value Reference Range Interpretation Comments UA Sq Epi (test code = UA Sq Occasional /LPF Epi) [facility] AND [id number] 20:14:00 Test Item Value Reference Range Interpretation Comments UA Blood (test code = Negative (03/11/16 3:14 UA Blood) PM) [facility] AND [id number] 20:14:00 Test Item Value Reference Range Interpretation Comments UA Urobilinogen (test code = UA 0.2 0.1-1.0 Urobilinogen) [facility] AND [id number] 20:14:00 Test Item Value Reference Range Interpretation Comments UA Turbidity (test code = Clear (03/11/16 3:14 UA Turbidity) PM) [facility] AND [id number] 20:14:00 Test Item Value Reference Range Interpretation Comments UA Glucose (test code Negative (03/11/16 3:14 = UA Glucose) PM) [facility] AND [id number] 20:14:00 Test Item Value Reference Range Interpretation Comments UA Spec Grav (test code *NA*(03/11/16 3:14 PM) = UA Spec Grav) [facility] AND [id number] 20:14:00 Test Item Value Reference Range Interpretation Comments UA pH (test code = UA pH) 6.5 1 5.0-8.0 [facility] AND [id number] 20:14:00 Test Item Value Reference Range Interpretation Comments UA Ketones (test code Negative *NA*(03/11/16 = UA Ketones) 3:14 PM) [facility] AND [id number] 20:14:00 Test Item Value Reference Range Interpretation Comments UA Bili (test code = Negative *NA*(03/11/16 UA Bili) 3:14 PM) [facility] AND [id number] 20:14:00 Test Item Value Reference Range Interpretation Comments UA Protein (test code Negative (03/11/16 3:14 = UA Protein) PM) [facility] AND [id number] 20:14:00 Test Item Value Reference Range Interpretation Comments UA Color (test code = Yellow *NA*(03/11/16 UA Color) 3:14 PM) [facility] [id number] 00:22:00 Test Item Value Reference Range Interpretation Comments UA Color (test code = Yellow *NA*(02/29/16 7:22 UA Color) PM) [facility] AND [id number] 00:22:00 Test Item Value Reference Range Interpretation Comments UA pH (test code = UA pH) 6.0 1 5.0-8.0 [facility] [id number] 00:22:00 Test Item Value Reference Range Interpretation Comments UA Turbidity (test code = Clear (02/29/16 7:22 UA Turbidity) PM) [facility] AND [id number] 00:22:00 Test Item Value Reference Range Interpretation Comments UA Spec Grav (test code = UA Spec 1.015 1 Grav) [facility] AND [id number] 00:22:00 Test Item Value Reference Range Interpretation Comments UA Leuk Est (test code Trace *ABN*(02/29/16 7:22 = UA Leuk Est) PM) [facility] AND [id number] 00:22:00 Test Item Value Reference Range Interpretation Comments UA Bacteria (test code = UA Few /HPF Bacteria) [facility] AND [id number] 00:22:00 Test Item Value Reference Range Interpretation Comments UA RBC (test None Seen See_Comment [Automated [place]] code = UA RBC) (02/29/16 7:22 PM) [employer] which generated this result transmitted ref erence range: <=2. The reference range was not used to int erpret this result as normal/abnormal . [facility] AND [id number] 00:22:00 Test Item Value Reference Range Interpretation Comments UA Sq Epi (test code = UA Sq Moderate /LPF Epi) [facility] AND [id number] 00:22:00 Test Item Value Reference Range Interpretation Comments UA WBC (test code = UA WBC) 0-2 /HPF [facility] AND [id number] 00:22:00 Test Item Value Reference Range Interpretation Comments UA Blood (test code = Negative (02/29/16 7:22 UA Blood) PM) [facility] AND [id number] 00:22:00 Test Item Value Reference Range Interpretation Comments UA Urobilinogen (test code = UA 1.0 0.1-1.0 Urobilinogen) [facility] AND [id number] 00:22:00 Test Item Value Reference Range Interpretation Comments UA Nitrite (test code Negative (02/29/16 7:22 = UA Nitrite) PM) [facility] AND [id number] 00:22:00 Test Item Value Reference Range Interpretation Comments UA Trichomonas (test code = UA Few /HPF Trichomonas) [facility] [id number] 00:22:00 Test Item Value Reference Range Interpretation Comments UA Protein (test code Negative (02/29/16 7:22 = [facility]A Protein) PM) [facility] [id number] 00:22:00 Test Item Value Reference Range Interpretation Comments UA Bili (test code = Negative *NA*(02/29/16 UA Bili) 7:22 PM) [facility] [id number] 00:22:00 Test Item Value Reference Range Interpretation Comments UA Ketones (test code Negative *NA*(02/29/16 = UA Ketones) 7:22 PM) [facility] [id number] 00:22:00 Test Item Value Reference Range Interpretation Comments UA Glucose (test code Negative (02/29/16 7:22 = UA Glucose) PM) [facility] HospitalChurchkey Can CoCARDIAC [id number] 23:14:00 Test Item Value Reference Range Interpretation Comments Troponin-I (test code no gt See_Comment [Auto mated message] The = Troponin-I) system which g enerated this result transmit marcelle reference range : <=0.40. The reference r melody was not used to interpr et this result as aranza l/abnormal. [facility] [employer] [id number] 23:14:00 Test Item Value Reference Range Interpretation Comments CK MB (test code = CK MB) 1.1 0.5-3.6 [facility] [employer]AC [id number] 23:14:00 Test Item Value Reference Range Interpretation Comments Total CK (test code = Total CK) 136 12-191 [facility] HospitalAstroloMeAC [id number] 23:14:00 Test Item Value Reference Range Interpretation Comments proBNP (test code = 7 See_Comment [Automa marcelle message] The proBNP) system which ge nerated this result tra nsmitted reference range : <=125. The reference r melody was not used to int erpret this result as aranza l/abnormal. [facility] [employer]annCARDIAC [id number] 23:14:00 Test Item Value Reference Range Interpretation Comments CK-MB INDEX (test 0.8 See_Comment [Automate d message] The code = CK-MB INDEX) system w [facility] generated this result transmit marcelle reference range : <=2.5. The reference range was not used to interpr et this result as aranza l/abnormal. [facility]2016-07-03 23:14:00 Test Item Value Reference Range Interpretation Comments eGFR (test code = eGFR) 80 [facility]2016-07-03 23:14:00 Test Item Value Reference Range Interpretation Comments ASPARTATE TRANSAMINASE 13 See_Comment [Aut omated message] (test code = ASPARTATE The s ystem which TRANSAMINASE) generated this result transmitted ref erence range: <=37. Th e reference range was not used to interpr et this result as normal/abnormal . [facility]2016-07-03 23:14:00 Test Item Value Reference Range Interpretation Comments A/G Ratio (test code = A/G Ratio) 1.0 0.7-1.6 [place] [id number] 23:14:00 Test Item Value Reference Range Interpretation Comments Globulin (test code = Globulin) 3.6 2.0-4.0 [facility]2016-07-03 23:14:00 Test Item Value Reference Range Interpretation Comments B/C Ratio (test code = B/C Ratio) 9 6-25 [facility]2016-07-03 23:14:00 Test Item Value Reference Range Interpretation Comments Total Protein (test code = Total 7.1 6.4-8.4 Protein) [facility]2016-07-03 23:14:00 Test Item Value Reference Range Interpretation Comments AGAP (test code = AGAP) 10.0 10.0-20.0 [facility]2016-07-03 23:14:00 Test Item Value Reference Range Interpretation Comments Sodium Lvl (test code = Sodium Lvl) 143 135-145 [facility]2016-07-03 23:14:00 Test Item Value Reference Range Interpretation Comments Potassium Lvl (test code = Potassium 3.0 3.5-5.1 Lvl) [facility]2016-07-03 23:14:00 Test Item Value Reference Range Interpretation Comments Creatinine Lvl (test code = Creatinine 0.88 0.50-1.40 Lvl) [facility]2016-07-03 23:14:00 Test Item Value Reference Range Interpretation Comments CO2 (test code = CO2) 30 24-32 [facility]2016-07-03 23:14:00 Test Item Value Reference Range Interpretation Comments Bili Total (test code = Bili Total) 0.6 0.2-1.3 [facility]2016-07-03 23:14:00 Test Item Value Reference Range Interpretation Comments Calcium Lvl (test code = Calcium Lvl) 8.7 8.5-10.5 [facility]2016-07-03 23:14:00 Test Item Value Reference Range Interpretation Comments Chloride Lvl (test code = Chloride Lvl) 106 95-109 [facility]2016-07-03 23:14:00 Test Item Value Reference Range Interpretation Comments ALANINE AMINOTRANSFERASE 15 See_Comment [A utomated message] (test code = ALANINE The sys tem which AMINOTRANSFERASE) generated this result transmitted ref erence range: <=65. Th e reference range was not used to int erpret this result as normal/abnormal . [facility]2016-07-03 23:14:00 Test Item Value Reference Range Interpretation Comments Alk Phos (test code = Alk Phos) 88 39-136 [facility]2016-07-03 23:14:00 Test Item Value Reference Range Interpretation Comments Albumin Lvl (test code = Albumin Lvl) 3.5 3.5-5.0 [facility]2016-07-03 23:14:00 Test Item Value Reference Range Interpretation Comments BUN (test code = BUN) 8 7-22 [facility]2016-07-03 23:14:00 Test Item Value Reference Range Interpretation Comments Glucose Lvl (test code = Glucose Lvl) 89 70-99 [id number] 23:14:00 Test Item Value Reference Range Interpretation Comments PROTIME (test code = PROTIME) 13.2 s 12.0-14.7 [id number] 23:14:00 Test Item Value Reference Range Interpretation Comments INR (test code = INR) 0.97 0.85-1.17 [facility]wallFlbhiyhBVFDNRRENE2261-12-90 23:14:00 Test Item Value Reference Range Interpretation Comments RDW (test code = RDW) 15.3 11.5-14.5 [place] [id number] 23:14:00 Test Item Value Reference Range Interpretation Comments MCHC (test code = MCHC) 32.9 32.0-36.0 [facility]wallGeaydytZAQBIZTFSQ3477-69-03 23:14:00 Test Item Value Reference Range Interpretation Comments Hct (test code = Hct) 43.8 36.0-48.0 [facility]wallShrdivpSHBMGQDBZP1943-72-74 23:14:00 Test Item Value Reference Range Interpretation Comments MCH (test code = MCH) 28.1 pg 27.0-31.0 [facility]wallVfpexhdWEEPXWHJAT9631-59-14 23:14:00 Test Item Value Reference Range Interpretation Comments MCV (test code = MCV) 85.5 80.0-98.0 [facility]wallVdawlzrYUYEJXXGJF3793-61-45 23:14:00 Test Item Value Reference Range Interpretation Comments WBC X 10x3 (test code = WBC X 10x3) 5.3 3.7-10.4 [facility]wallQcfhuleGLWKGFCBUZ0675-78-22 23:14:00 Test Item Value Reference Range Interpretation Comments Hgb (test code = Hgb) 14.4 12.0-16.0 [facility]wallUqdvwnuGWVRTTOMAQ9388-38-31 23:14:00 Test Item Value Reference Range Interpretation Comments RBC X 10x6 (test code = RBC X 10x6) 5.12 4.20-5.40 [facility]wallAxvqckjMJGVSQPIPL1554-32-25 23:14:00 Test Item Value Reference Range Interpretation Comments Platelet (test code = Platelet) 197 133-450 [facility]wallCxhchflDTTCWGYYBN5714-10-23 23:14:00 Test Item Value Reference Range Interpretation Comments MPV (test code = MPV) 8.1 7.4-10.4 [facility] RockwallKvidnelSXUFRIVGDU8405-27-80 23:14:00 Test Item Value Reference Range Interpretation Comments Segs (test code = Segs) 57.2 45.0-75.0 [facility]wallQtmqvhlQDPJOVPLYA7376-11-26 23:14:00 Test Item Value Reference Range Interpretation Comments Monocytes (test code = Monocytes) 11.7 2.0-12.0 [facility]wallVngngucQELBXHNIMD5904-54-65 23:14:00 Test Item Value Reference Range Interpretation Comments Lymphocytes (test code = Lymphocytes) 24.1 20.0-40.0 [facility] RockwallHjdnmscIZMSEVNBDN7639-73-50 23:14:00 Test Item Value Reference Range Interpretation Comments Basophils # (test code 0.1 See_Comment [Aut omated message] The = Basophils #) system which generated this result tra nsmitted reference range : <=0.2. The reference r melody was not used to int erpret this result as normal/abnormal . [facility] RockwallKojwcsuLATXOHPJQY6851-21-58 23:14:00 Test Item Value Reference Range Interpretation Comments Monocytes # (test code 0.6 See_Comment [Aut omated message] The = Monocytes #) system which generated this result tra nsmitted reference range : <=0.8. The reference r melody was not used to int erpret this result as normal/abnormal . [facility]wallVrszkjxHFNERZGJJY2714-86-81 23:14:00 Test Item Value Reference Range Interpretation Comments Lymphocytes # (test code = Lymphocytes 1.3 1.0-5.5 #) [facility]wallGmtsgstRTYOALAHNW9144-40-20 23:14:00 Test Item Value Reference Range Interpretation Comments Eosinophils # (test code 0.3 See_Comment [A utomated message] The = Eosinophils #) system whic h generated this result tra nsmitted reference range : <=0.5. The reference r melody was not used to int erpret this result as normal/abnormal . [facility] RockwallAkkgffiQEBFADLPQU6046-27-84 23:14:00 Test Item Value Reference Range Interpretation Comments Segs-Bands # (test code = Segs-Bands #) 3.0 1.5-8.1 [facility]wallPedjipqIJUOJAIOME8376-04-45 23:14:00 Test Item Value Reference Range Interpretation Comments Eosinophils (test code = 5.9 See_Comment [A utomated message] The Eosinophils) system which ge nerated this result tra nsmitted reference range : <=4.0. The reference r melody was not used to int erpret this result as normal/abnormal . [facility] RockwallDprhkqmOIJAWUWQJE7629-78-65 23:14:00 Test Item Value Reference Range Interpretation Comments Basophils (test code = 1.1 See_Comment [Aut omated message] The Basophils) system which ge nerated this result tra nsmitted reference range : <=1.0. The reference r melody was not used to int erpret this result as normal/abnormal . [facility] CenterCARDIAC [id number] 17:04:00 Test Item Value Reference Range Interpretation Comments CK MB Index (test 0.7 See_Comment [Automate d message] The code = CK MB Index) system w [facility] generated this result transmit marcelle reference range : <=2.5. The reference range was not used to interpr et this result as aranza l/abnormal. [facility] CenterGuardian Analytics [id number] 17:04:00 Test Item Value Reference Range Interpretation Comments CK MB (test code = CK MB) 0.7 0.5-3.6 [facility] [id number] 17:04:00 Test Item Value Reference Range Interpretation Comments Troponin-I (test code no gt See_Comment [Auto mated message] The = Troponin-I) system which g enerated this result transmit marcelle reference range : <=0.40. The reference r melody was not used to interpr et this result as aranza l/abnormal. [facility] CenterThinknumTHE MEDICAL CENTER [id number] 17:04:00 Test Item Value Reference Range Interpretation Comments Total CK (test code = Total CK) 97 12-191 [facility]KszbajhGNFGUQOUTOZZ8566-29-68 17:04:00 Test Item Value Reference Range Interpretation Comments AGAP (test code = AGAP) 18.3 10.0-20.0 [facility] HospitalYrkuxpbGUZZWDPMNBTU7547-04-72 17:04:00 Test Item Value Reference Range Interpretation Comments eGFR (test code = eGFR) 78 [facility] TexasHbblfqiBJKIPBESSUSB1018-59-18 17:04:00 Test Item Value Reference Range Interpretation Comments Glucose Lvl (test code = Glucose Lvl) 134 70-99 [facility] HospitalEfhenuoICHGYTXBTJXK2702-38-86 17:04:00 Test Item Value Reference Range Interpretation Comments BUN (test code = BUN) 10 7-22 [facility] HospitalWtotnocHWDVCSTKCSOG5533-68-21 17:04:00 Test Item Value Reference Range Interpretation Comments Creatinine Lvl (test code = Creatinine 0.90 0.50-1.40 Lvl) [facility] HospitalWwklmbvUBFYVPFGHSCA7399-23-04 17:04:00 Test Item Value Reference Range Interpretation Comments CO2 (test code = CO2) 20 24-32 [facility] TexasHurfkooLNXUQVKSEQPY2136-33-77 17:04:00 Test Item Value Reference Range Interpretation Comments Calcium Lvl (test code = Calcium Lvl) 9.4 8.5-10.5 [facility]XvzizcgXCXPEILHZSPE7136-63-99 17:04:00 Test Item Value Reference Range Interpretation Comments Potassium Lvl (test code = Potassium 4.3 3.5-5.1 Lvl) [facility]XvqmdtvFWIDUVBIOASA6830-93-81 17:04:00 Test Item Value Reference Range Interpretation Comments Chloride Lvl (test code = Chloride Lvl) 106 95-109 [facility] HospitalWpekuraTDWXOQEZZSUN8830-76-84 17:04:00 Test Item Value Reference Range Interpretation Comments Sodium Lvl (test code = Sodium Lvl) 140 135-145 [facility]wallXbvhvcaEQWCQXLZJJ3004-56-72 17:04:00 Test Item Value Reference Range Interpretation Comments WBC (test code = WBC) 9.6 3.7-10.4 [facility]wallGpkggiiOWWLEOBXIY1367-63-46 17:04:00 Test Item Value Reference Range Interpretation Comments Hct (test code = Hct) 41.4 36.0-48.0 [facility]wallSgrqhgxCQJYMYWQOH4964-77-82 17:04:00 Test Item Value Reference Range Interpretation Comments Hgb (test code = Hgb) 13.1 12.0-16.0 [facility]wallQmwjtthOCQIFXFNKM0880-39-71 17:04:00 Test Item Value Reference Range Interpretation Comments RBC (test code = RBC) 4.74 4.20-5.40 [facility]wallKkypsypHLDGRHRFRM4182-27-65 17:04:00 Test Item Value Reference Range Interpretation Comments MCV (test code = MCV) 87.3 80.0-98.0 [facility] RockwallYalnrsnGGWIMVTPFJ8798-53-48 17:04:00 Test Item Value Reference Range Interpretation Comments MCHC (test code = MCHC) 31.5 32.0-36.0 [facility]wallFndieflYNJMKDWFWT2177-77-47 17:04:00 Test Item Value Reference Range Interpretation Comments MCH (test code = MCH) 27.5 pg 27.0-31.0 [facility] RockwallZylfbvdSGVRRSCUPP5782-71-40 17:04:00 Test Item Value Reference Range Interpretation Comments MPV (test code = MPV) 8.7 7.4-10.4 [facility] RockwallQuksehuWQSJNBZAYN8466-72-87 17:04:00 Test Item Value Reference Range Interpretation Comments Platelet (test code = Platelet) 226 133-450 [facility] RockwallFlfcedpZMQDMHVGVM9200-88-14 17:04:00 Test Item Value Reference Range Interpretation Comments RDW (test code = RDW) 14.4 11.5-14.5 [facility] RockwallFweqkakKPALUCQDJW3847-11-95 17:04:00 Test Item Value Reference Range Interpretation Comments Monocytes # (test code 0.1 See_Comment [Aut omated message] The = Monocytes #) system which generated this result tra nsmitted reference range : <=0.8. The reference r melody was not used to int erpret this result as normal/abnormal . [facility] RockwallSthrwofWFJXQRHNCP6995-88-23 17:04:00 Test Item Value Reference Range Interpretation Comments Lymphocytes # (test code = Lymphocytes 0.5 1.0-5.5 #) [facility] RockwallRdxhjbfXTWNXINBEG8808-95-03 17:04:00 Test Item Value Reference Range Interpretation Comments RBC Morph (test code = Normal (09/04/15 11:04 RBC Morph) AM) [facility]wallSrvvxkkLQGPBMINVQ8961-35-23 17:04:00 Test Item Value Reference Range Interpretation Comments Plt Morph (test code = Normal (09/04/15 11:04 Plt Morph) AM) [facility] RockwallBafciaaIYTLHMXVAV1376-61-35 17:04:00 Test Item Value Reference Range Interpretation Comments Segs (test code = Segs) 93.3 45.0-75.0 [facility] RockwallPraglwhWZSVWKYRZX0992-29-23 17:04:00 Test Item Value Reference Range Interpretation Comments Basophils (test code = 0.2 See_Comment [Aut omated message] The Basophils) system which ge nerated this result tra nsmitted reference range : <=1.0. The reference r melody was not used to int erpret this result as normal/abnormal . [facility] RockwallAuultllWQETDHKFMB9146-09-00 17:04:00 Test Item Value Reference Range Interpretation Comments Lymphocytes (test code = Lymphocytes) 5.4 20.0-40.0 [facility] RockwallOplkqllYGESBBXHKD8632-11-03 17:04:00 Test Item Value Reference Range Interpretation Comments Monocytes (test code = Monocytes) 1.1 2.0-12.0 [facility] RockwallKptroeiJAWLDATWMG6251-22-76 17:04:00 Test Item Value Reference Range Interpretation Comments Segs-Bands # (test code = Segs-Bands #) 9.0 1.5-8.1 [facility] CenterTuhsutcXRMDKQ8646-67-18 17:04:00 Test Item Value Reference Range Interpretation Comments VLDL (test code = VLDL) 14 [facility] CenterHcixrxbHWGYPB2328-42-43 17:04:00 Test Item Value Reference Range Interpretation Comments Chol (test code = Chol) 198 [facility] CenterZalfbmiWTDEOG6000-04-85 17:04:00 Test Item Value Reference Range Interpretation Comments HDL (test code = HDL) 54 [facility] CenterBwmiwmeWAYJUR5020-06-60 17:04:00 Test Item Value Reference Range Interpretation Comments Trig (test code = Trig) 71 [facility] [id number] 17:04:00 Test Item Value Reference Range Interpretation Comments LDL (Calculated) (test code = LDL 130 (Calculated)) [facility]AeaipfeEHIBFV1989-[facility] 17:04:00 Test Item Value Reference Range Interpretation Comments CHD Risk (test code = CHD Risk) 3.67 3.90-5.80 [facility] CenterInnovus [id number] 10:50:00 Test Item Value Reference Range Interpretation Comments CK MB Index (test 0.6 See_Comment [Automate d message] The code = CK MB Index) system w [facility] generated this result transmit marcelle reference range : <=2.5. The reference range was not used to interpr et this result as aranza l/abnormal. [facility] CenterHeyo [id number] 10:50:00 Test Item Value Reference Range Interpretation Comments CK MB (test code = CK MB) 0.6 0.5-3.6 [facility]Frug[facility] [id number] 10:50:00 Test Item Value Reference Range Interpretation Comments Troponin-I (test code no gt See_Comment [Auto mated message] The = Troponin-I) system which g enerated this result transmit marcelle reference range : <=0.40. The reference r melody was not used to interpr et this result as aranza l/abnormal. [facility] HospitalFuhuajie Industrial ([employer]) [id number] 10:50:00 Test Item Value Reference Range Interpretation Comments Total CK (test code = Total CK) 103 12-191 [facility] CenterHeyo [id number] 04:33:00 Test Item Value Reference Range Interpretation Comments Total CK (test code = Total CK) 113 12-191 [facility] HospitalAstroloMe [id number] 04:33:00 Test Item Value Reference Range Interpretation Comments Troponin-I (test code no gt See_Comment [Auto mated message] The = Troponin-I) system which g enerated this result transmit marcelle reference range : <=0.40. The reference r melody was not used to interpr et this result as aranza l/abnormal. [facility] HospitalFuhuajie Industrial ([employer]) [id number] 04:33:00 Test Item Value Reference Range Interpretation Comments CK MB (test code = CK MB) 0.8 0.5-3.6 [facility] HospitalAstroloMeAC [id number] 04:33:00 Test Item Value Reference Range Interpretation Comments CK MB Index (test 0.7 See_Comment [Automate d message] The code = CK MB Index) system w [facility] generated this result transmit marcelle reference range : <=2.5. The reference range was not used to interpr et this result as aranza l/abnormal. [facility] [employer] [id number] 04:33:00 Test Item Value Reference Range Interpretation Comments eGFR (test code = eGFR) 87 [facility] Jaman2016-01-07 04:33:00 Test Item Value Reference Range Interpretation Comments BUN (test code = BUN) 8 7-22 [facility] [employer] [id number] 04:33:00 Test Item Value Reference Range Interpretation Comments Creatinine Lvl (test code = Creatinine 0.82 0.50-1.40 Lvl) [facility] [employer] [id number] 04:33:00 Test Item Value Reference Range Interpretation Comments Glucose Lvl (test code = Glucose Lvl) 115 70-99 [facility] [employer]2016-01-07 04:33:00 Test Item Value Reference Range Interpretation Comments Chloride Lvl (test code = Chloride Lvl) 106 95-109 [facility] [employer]2016-01-07 04:33:00 Test Item Value Reference Range Interpretation Comments Potassium Lvl (test code = Potassium 3.9 3.5-5.1 Lvl) [facility] [employer] [id number] 04:33:00 Test Item Value Reference Range Interpretation Comments Sodium Lvl (test code = Sodium Lvl) 141 135-145 [facility] [employer] [id number] 04:33:00 Test Item Value Reference Range Interpretation Comments AGAP (test code = AGAP) 13.9 10.0-20.0 [facility]2016-01-07 04:33:00 Test Item Value Reference Range Interpretation Comments Calcium Lvl (test code = Calcium Lvl) 9.2 8.5-10.5 [facility]2016-01-07 04:33:00 Test Item Value Reference Range Interpretation Comments CO2 (test code = CO2) 25 24-32 [facility]wallShcasxzDMWRAQTEHZ2805-82-06 04:33:00 Test Item Value Reference Range Interpretation Comments WBC (test code = WBC) 7.4 3.7-10.4 [facility]wallEmmgbvtJQATNLZSHW3612-70-71 04:33:00 Test Item Value Reference Range Interpretation Comments Hgb (test code = Hgb) 12.4 12.0-16.0 [facility] RockwallTepyggmKNOSWIKTCM7245-96-38 04:33:00 Test Item Value Reference Range Interpretation Comments RBC (test code = RBC) 4.57 4.20-5.40 [facility] RockwallWnrdfpkLNHVKKYCJI7455-94-05 04:33:00 Test Item Value Reference Range Interpretation Comments Hct (test code = Hct) 39.4 36.0-48.0 [facility] RockwallKvpcoyiMDHFMXFTLF0898-34-65 04:33:00 Test Item Value Reference Range Interpretation Comments MCV (test code = MCV) 86.1 80.0-98.0 [facility] RockwallIgwqyuyHVQTJWKWGF4484-70-24 04:33:00 Test Item Value Reference Range Interpretation Comments RDW (test code = RDW) 14.7 11.5-14.5 [facility] RockwallXkozrgrJYKXUZRSIP1075-00-90 04:33:00 Test Item Value Reference Range Interpretation Comments MCHC (test code = MCHC) 31.6 32.0-36.0 [facility] RockwallMkvvjmbPHKMPITXDN3139-14-84 04:33:00 Test Item Value Reference Range Interpretation Comments MCH (test code = MCH) 27.2 pg 27.0-31.0 [facility] RockwallRrkkjeiLTLWHISPFP6124-88-95 04:33:00 Test Item Value Reference Range Interpretation Comments MPV (test code = MPV) 8.3 7.4-10.4 [facility] RockwallMurwcscZADKOQDKNA6155-91-57 04:33:00 Test Item Value Reference Range Interpretation Comments Platelet (test code = Platelet) 239 133-450 [facility] Rockwa[id number] 04:33:00 Test Item Value Reference Range Interpretation Comments Eosinophils (test code = 5.5 See_Comment [A utomated message] The Eosinophils) system which ge nerated this result tra nsmitted reference range : <=4.0. The reference r melody was not used to int erpret this result as normal/abnormal . [facility] RockwallAxknwzpIYEEWTHHRI2916-76-66 04:33:00 Test Item Value Reference Range Interpretation Comments Monocytes (test code = Monocytes) 6.5 2.0-12.0 [facility] RockwallQejgyhtXUHVIIUIJW1732-06-41 04:33:00 Test Item Value Reference Range Interpretation Comments Lymphocytes (test code = Lymphocytes) 31.7 20.0-40.0 [facility] RockwallDflpxfxEETLGIFYNH2613-65-25 04:33:00 Test Item Value Reference Range Interpretation Comments Segs (test code = Segs) 55.0 45.0-75.0 [facility] RockwallKbdgiysJUYNDTHGCY1589-73-53 04:33:00 Test Item Value Reference Range Interpretation Comments Monocytes # (test code 0.5 See_Comment [Aut omated message] The = Monocytes #) system which generated this result tra nsmitted reference range : <=0.8. The reference r melody was not used to int erpret this result as normal/abnormal . [facility] RockwallUksvicsQPREQPMCZN3656-33-14 04:33:00 Test Item Value Reference Range Interpretation Comments Lymphocytes # (test code = Lymphocytes 2.3 1.0-5.5 #) [facility] RockwallLexbvhpKIWHKBDQMV5053-64-04 04:33:00 Test Item Value Reference Range Interpretation Comments Segs-Bands # (test code = Segs-Bands #) 4.0 1.5-8.1 [facility] RockwallEgnspsoAVNMUJWNCH6424-04-88 04:33:00 Test Item Value Reference Range Interpretation Comments Basophils (test code = 1.3 See_Comment [Aut omated message] The Basophils) system which ge nerated this result tra nsmitted reference range : <=1.0. The reference r melody was not used to int erpret this result as normal/abnormal . [facility] RockwallNdjokkxIAAAFWEUDG2892-16-16 04:33:00 Test Item Value Reference Range Interpretation Comments Basophils # (test code 0.1 See_Comment [Aut omated message] The = Basophils #) system which generated this result tra nsmitted reference range : <=0.2. The reference r melody was not used to int erpret this result as normal/abnormal . [facility] HospitalAimstdhUIZYBMEGNE8014-25-55 04:33:00 Test Item Value Reference Range Interpretation Comments Eosinophils # (test code 0.4 See_Comment [A utomated message] The = Eosinophils #) system whic h generated this result tra nsmitted reference range : <=0.5. The reference r melody was not used to int erpret this result as normal/abnormal . [facility] [employer] [id number] 10:25:00 Test Item Value Reference Range Interpretation Comments Troponin-I (test code no gt See_Comment [Auto mated message] The = Troponin-I) system which g enerated this result transmit marcelle reference range : <=0.40. The reference r melody was not used to interpr et this result as aranza l/abnormal. [facility] [employer] [id number] 10:25:00 Test Item Value Reference Range Interpretation Comments Total CK (test code = Total CK) 75 12-191 [facility] [employer] [id number] 10:25:00 Test Item Value Reference Range Interpretation Comments CK MB (test code = CK MB) 0.9 0.5-3.6 [facility] [employer]AC [id number] 10:25:00 Test Item Value Reference Range Interpretation Comments CK-MB INDEX (test 1.2 See_Comment [Automate d message] The code = CK-MB INDEX) system w [facility] generated this result transmit marcelle reference range : <=2.5. The reference range was not used to interpr et this result as aranza l/abnormal. [facility] [employer] [id number] 10:25:00 Test Item Value Reference Range Interpretation Comments eGFR (test code = eGFR) 105 [facility] [employer] [id number] 10:25:00 Test Item Value Reference Range Interpretation Comments Bili Total (test code = Bili Total) 0.6 0.2-1.3 [facility] [employer] [id number] 10:25:00 Test Item Value Reference Range Interpretation Comments Albumin Lvl (test code = Albumin Lvl) 3.1 3.5-5.0 [facility]2015-11-18 10:25:00 Test Item Value Reference Range Interpretation Comments Calcium Lvl (test code = Calcium Lvl) 9.0 8.5-10.5 [facility]2015-11-18 10:25:00 Test Item Value Reference Range Interpretation Comments Total Protein (test code = Total 6.3 6.4-8.4 Protein) [facility]2015-11-18 10:25:00 Test Item Value Reference Range Interpretation Comments AST (test code = AST) 14 See_Comment [Auto mated message] The system which ge nerated this result transmit marcelle reference range : <=37. The reference range was not used to interpr et this result as aranza l/abnormal. [facility]2015-11-18 10:25:00 Test Item Value Reference Range Interpretation Comments Alk Phos (test code = Alk Phos) 89 39-136 [facility]2015-11-18 10:25:00 Test Item Value Reference Range Interpretation Comments ALT (test code = ALT) 19 See_Comment [Auto mated message] The system which ge nerated this result transmit marcelle reference range : <=65. The reference range was not used to interpr et this result as aranza l/abnormal. [facility]2015-11-18 10:25:00 Test Item Value Reference Range Interpretation Comments CO2 (test code = CO2) 25 24-32 [facility]2015-11-18 10:25:00 Test Item Value Reference Range Interpretation Comments Potassium Lvl (test code = Potassium 4.2 3.5-5.1 Lvl) [facility]2015-11-18 10:25:00 Test Item Value Reference Range Interpretation Comments Chloride Lvl (test code = Chloride Lvl) 108 95-109 [facility]2015-11-18 10:25:00 Test Item Value Reference Range Interpretation Comments BUN (test code = BUN) 14 7-22 [facility]2015-11-18 10:25:00 Test Item Value Reference Range Interpretation Comments Creatinine Lvl (test code = Creatinine 0.70 0.50-1.40 Lvl) [facility]2015-11-18 10:25:00 Test Item Value Reference Range Interpretation Comments Sodium Lvl (test code = Sodium Lvl) 139 135-145 [facility]2015-11-18 10:25:00 Test Item Value Reference Range Interpretation Comments Glucose Lvl (test code = Glucose Lvl) 78 70-99 [facility]2015-11-18 10:25:00 Test Item Value Reference Range Interpretation Comments B/C Ratio (test code = B/C Ratio) 20 6-25 [facility]2015-11-18 10:25:00 Test Item Value Reference Range Interpretation Comments AGAP (test code = AGAP) 10.2 10.0-20.0 [facility]2015-11-18 10:25:00 Test Item Value Reference Range Interpretation Comments A/G Ratio (test code = A/G Ratio) 1.0 0.7-1.6 [facility]2015-11-18 10:25:00 Test Item Value Reference Range Interpretation Comments Globulin (test code = Globulin) 3.2 2.0-4.0 [facility]wallXijwfmnKCZCPIOVZB3893-13-93 10:25:00 Test Item Value Reference Range Interpretation Comments MPV (test code = MPV) 8.6 7.4-10.4 [facility] RockwallMkcxalbGGCUKAWSYM3074-76-04 10:25:00 Test Item Value Reference Range Interpretation Comments Platelet (test code = Platelet) 166 133-450 [facility] RockwallPnycolbEGWIDXJUGA4377-37-15 10:25:00 Test Item Value Reference Range Interpretation Comments RDW (test code = RDW) 14.3 11.5-14.5 [facility] RockwallIqgbxziYRLQOUHUYA3245-96-12 10:25:00 Test Item Value Reference Range Interpretation Comments RBC (test code = RBC) 4.53 4.20-5.40 [facility] Ro[id number] 10:25:00 Test Item Value Reference Range Interpretation Comments WBC (test code = WBC) 5.5 3.7-10.4 [facility] RockwallTqzqoywINLKCSKEJU2662-14-93 10:25:00 Test Item Value Reference Range Interpretation Comments MCH (test code = MCH) 27.9 pg 27.0-31.0 [facility] RockwallAlqgblzCTHSRCMEND6514-56-55 10:25:00 Test Item Value Reference Range Interpretation Comments MCHC (test code = MCHC) 31.5 32.0-36.0 [place] [id number] 10:25:00 Test Item Value Reference Range Interpretation Comments MCV (test code = MCV) 88.6 80.0-98.0 [facility] RockwallKiqtplfWXQKQCQRVR9757-74-37 10:25:00 Test Item Value Reference Range Interpretation Comments Hct (test code = Hct) 40.2 36.0-48.0 [facility] RockwallZxmhtzfASLSJOXWKE6863-32-78 10:25:00 Test Item Value Reference Range Interpretation Comments Hgb (test code = Hgb) 12.6 12.0-16.0 [facility] RockwallEdeoapkJCKSYWFJEV8834-55-45 10:25:00 Test Item Value Reference Range Interpretation Comments Eosinophils # (test code 0.2 See_Comment [A utomated message] The = Eosinophils #) system whic h generated this result tra nsmitted reference range : <=0.5. The reference r melody was not used to int erpret this result as normal/abnormal . [facility] RockwallHdqmxmmBIEMBTAQFC7350-25-97 10:25:00 Test Item Value Reference Range Interpretation Comments Lymphocytes # (test code = Lymphocytes 2.0 1.0-5.5 #) [facility] RockwallXqkzvmpPULIRSAKXX7628-41-95 10:25:00 Test Item Value Reference Range Interpretation Comments Basophils (test code = 0.9 See_Comment [Aut omated message] The Basophils) system which ge nerated this result tra nsmitted reference range : <=1.0. The reference r melody was not used to int erpret this result as normal/abnormal . [facility] RockwallYruelhkDLEPUQPZWM6777-48-18 10:25:00 Test Item Value Reference Range Interpretation Comments Monocytes # (test code 0.6 See_Comment [Aut omated message] The = Monocytes #) system which generated this result tra nsmitted reference range : <=0.8. The reference r melody was not used to int erpret this result as normal/abnormal . [facility] RockwallXkazysdGIWJDXIXHT1955-62-14 10:25:00 Test Item Value Reference Range Interpretation Comments Segs-Bands # (test code = Segs-Bands #) 2.6 1.5-8.1 [facility] RockwallRerrnyeHIJUOJJXPF6238-64-09 10:25:00 Test Item Value Reference Range Interpretation Comments Monocytes (test code = Monocytes) 11.0 2.0-12.0 [facility] RockwallFitnilvBMWTFXIYTI4462-07-36 10:25:00 Test Item Value Reference Range Interpretation Comments Eosinophils (test code = 4.0 See_Comment [A utomated message] The Eosinophils) system which ge nerated this result tra nsmitted reference range : <=4.0. The reference r melody was not used to int erpret this result as normal/abnormal . [facility] HospitalRqfnaxgVSRZXAHCVE1308-99-41 10:25:00 Test Item Value Reference Range Interpretation Comments Lymphocytes (test code = Lymphocytes) 36.1 20.0-40.0 [facility] HospitalQdycpbiEDZWCSVHJH8820-38-70 10:25:00 Test Item Value Reference Range Interpretation Comments Segs (test code = Segs) 48.0 45.0-75.0 [facility] HospitalBumymxdFKRVQIEAOU7448-13-35 10:25:00 Test Item Value Reference Range Interpretation Comments Basophils # (test code 0.1 See_Comment [Aut omated message] The = Basophils #) system which generated this result tra nsmitted reference range : <=0.2. The reference r melody was not used to int erpret this result as normal/abnormal . [facility] [employer]2015-11-18 04:22:00 Test Item Value Reference Range Interpretation Comments Troponin-I (test code no gt See_Comment [Auto mated message] The = Troponin-I) system which g enerated this result transmit marcelle reference range : <=0.40. The reference r melody was not used to interpr et this result as aranza l/abnormal. [facility]2015-11-18 04:22:00 Test Item Value Reference Range Interpretation Comments Total CK (test code = Total CK) 88 12-191 [facility] HospitalAriisto2015-11-18 04:22:00 Test Item Value Reference Range Interpretation Comments CK MB Index (test 1.1 See_Comment [Automate d message] The code = CK MB Index) [facility] this result transmit marcelle reference range : <=2.5. The reference range was not used to interpr et this result as aranza l/abnormal. [facility] [employer]2015-11-18 04:22:00 Test Item Value Reference Range Interpretation Comments CK MB (test code = CK MB) 1.0 0.5-3.6 [employer]2015-11-17 21:33:00 Test Item Value Reference Range Interpretation Comments Troponin-I (test code no gt See_Comment [Auto mated message] The = Troponin-I) system which g enerated this result transmit marcelle reference range : <=0.40. The reference r melody was not used to interpr et this result as aranza l/abnormal. [employer]2015-11-17 21:33:00 Test Item Value Reference Range Interpretation Comments CK MB (test code = CK MB) 1.2 0.5-3.6 [facility] [employer]2015-11-17 21:33:00 Test Item Value Reference Range Interpretation Comments Total CK (test code = Total CK) 103 12-191 [facility] [place]2015-11-17 21:33:00 Test Item Value Reference Range Interpretation Comments CK MB Index (test 1.2 See_Comment [Automate d message] The code = CK MB Index) system w [facility] generated this result transmit marcelle reference range : <=2.5. The reference range was not used to interpr et this result as aranza l/abnormal. [employer]2015-11-17 21:33:00 Test Item Value Reference Range Interpretation Comments eGFR (test code = eGFR) 90 [facility] [employer]2015-11-17 21:33:00 Test Item Value Reference Range Interpretation Comments Alk Phos (test code = Alk Phos) 91 39-136 [facility] [employer] [id number] 21:33:00 Test Item Value Reference Range Interpretation Comments AST (test code = AST) 19 See_Comment [Auto mated message] The system which ge nerated this result transmit marcelle reference range : <=37. The reference range was not used to interpr et this result as aranza l/abnormal. [employer]2015-11-17 21:33:00 Test Item Value Reference Range Interpretation Comments ALT (test code = ALT) 17 See_Comment [Auto mated message] The system which ge nerated this result transmit marcelle reference range : <=65. The reference range was not used to interpr et this result as aranza l/abnormal. [employer]2015-11-17 21:33:00 Test Item Value Reference Range Interpretation Comments B/C Ratio (test code = B/C Ratio) 12 6-25 [facility]2015-11-17 21:33:00 Test Item Value Reference Range Interpretation Comments Bili Total (test code = Bili Total) 0.8 0.2-1.3 [facility]2015-11-17 21:33:00 Test Item Value Reference Range Interpretation Comments AGAP (test code = AGAP) 11.1 10.0-20.0 [facility]2015-11-17 21:33:00 Test Item Value Reference Range Interpretation Comments Albumin Lvl (test code = Albumin Lvl) 3.5 3.5-5.0 [facility]2015-11-17 21:33:00 Test Item Value Reference Range Interpretation Comments CO2 (test code = CO2) 27 - [facility]2015-11-17 21:33:00 Test Item Value Reference Range Interpretation Comments Total Protein (test code = Total 6.8 6.4-8.4 Protein) [facility]2015-11-17 21:33:00 Test Item Value Reference Range Interpretation Comments Calcium Lvl (test code = Calcium Lvl) 8.7 8.5-10.5 [facility]2015-11-17 21:33:00 Test Item Value Reference Range Interpretation Comments Globulin (test code = Globulin) 3.3 2.0-4.0 [facility]2015-11-17 21:33:00 Test Item Value Reference Range Interpretation Comments A/G Ratio (test code = A/G Ratio) 1.1 0.7-1.6 [facility]2015-11-17 21:33:00 Test Item Value Reference Range Interpretation Comments Creatinine Lvl (test code = Creatinine 0.80 0.50-1.40 Lvl) [facility]2015-11-17 21:33:00 Test Item Value Reference Range Interpretation Comments Chloride Lvl (test code = Chloride Lvl) 104 95-109 [facility]2015-11-17 21:33:00 Test Item Value Reference Range Interpretation Comments Sodium Lvl (test code = Sodium Lvl) 138 135-145 [facility]2015-11-17 21:33:00 Test Item Value Reference Range Interpretation Comments Potassium Lvl (test code = Potassium 4.1 3.5-5.1 Lvl) [facility]2015-11-17 21:33:00 Test Item Value Reference Range Interpretation Comments BUN (test code = BUN) 10 7-22 [facility]2015-11-17 21:33:00 Test Item Value Reference Range Interpretation Comments Glucose Lvl (test code = Glucose Lvl) 72 70-99 [facility] RockwallUpctgjmHBVJAZOHGG6932-68-30 21:33:00 Test Item Value Reference Range Interpretation Comments Segs-Bands # (test code = Segs-Bands #) 3.3 1.5-8.1 [facility] RockwallKznuvluFGHQHPSSEB4545-06-15 21:33:00 Test Item Value Reference Range Interpretation Comments Eosinophils # (test code 0.2 See_Comment [A utomated message] The = Eosinophils #) system whic h generated this result tra nsmitted reference range : <=0.5. The reference r melody was not used to int erpret this result as normal/abnormal . [facility] RockwallIyezavmSQMGZJZYOO8870-26-83 21:33:00 Test Item Value Reference Range Interpretation Comments Monocytes # (test code 0.6 See_Comment [Aut omated message] The = Monocytes #) system which generated this result tra nsmitted reference range : <=0.8. The reference r melody was not used to int erpret this result as normal/abnormal . [facility]wa[id number] 21:33:00 Test Item Value Reference Range Interpretation Comments Lymphocytes # (test code = Lymphocytes 2.3 1.0-5.5 #) [facility]wa[id number] 21:33:00 Test Item Value Reference Range Interpretation Comments Segs (test code = Segs) 51.8 45.0-75.0 [place] [id number] 21:33:00 Test Item Value Reference Range Interpretation Comments Basophils (test code = 0.6 See_Comment [Aut omated message] The Basophils) system which ge nerated this result tra nsmitted reference range : <=1.0. The reference r melody was not used to int erpret this result as normal/abnormal . [facility]wallVfjodhxZAKDKQUAWA4589-82-49 21:33:00 Test Item Value Reference Range Interpretation Comments Eosinophils (test code = 3.1 See_Comment [A utomated message] The Eosinophils) system which ge nerated this result tra nsmitted reference range : <=4.0. The reference r melody was not used to int erpret this result as normal/abnormal . [facility]wallFexnhqgHFAPFUTXLI3498-16-47 21:33:00 Test Item Value Reference Range Interpretation Comments Monocytes (test code = Monocytes) 9.4 2.0-12.0 [facility]wallKyexqsiBTCQCINIQJ4649-14-09 21:33:00 Test Item Value Reference Range Interpretation Comments Lymphocytes (test code = Lymphocytes) 35.1 20.0-40.0 [facility]wallDxiflzsOTRDAFNFSY6725-20-94 21:33:00 Test Item Value Reference Range Interpretation Comments Basophils # (test code 0.0 See_Comment [Aut omated message] The = Basophils #) system which generated this result tra nsmitted reference range : <=0.2. The reference r melody was not used to int erpret this result as normal/abnormal . [facility]wallLfqxlbsJKEADZFJAZ8007-96-77 21:33:00 Test Item Value Reference Range Interpretation Comments MPV (test code = MPV) 9.1 7.4-10.4 [facility]wallFqiawqyAXDKDIPTTH4418-60-18 21:33:00 Test Item Value Reference Range Interpretation Comments MCV (test code = MCV) 87.6 80.0-98.0 [facility]wallHttcpwoJHPOSTFMJL4388-49-46 21:33:00 Test Item Value Reference Range Interpretation Comments Hgb (test code = Hgb) 12.9 12.0-16.0 [facility]wallMtybfgvJYGIDYMMKM4364-99-10 21:33:00 Test Item Value Reference Range Interpretation Comments Hct (test code = Hct) 39.8 36.0-48.0 [facility]wallOvoucntBISRVKTCDL3116-12-66 21:33:00 Test Item Value Reference Range Interpretation Comments MCHC (test code = MCHC) 32.3 32.0-36.0 [facility]wallFjvybekCUFSWCIGBA9996-86-46 21:33:00 Test Item Value Reference Range Interpretation Comments RDW (test code = RDW) 14.8 11.5-14.5 [facility] RockwallIlmagiiIBWHUOFWGS8430-24-42 21:33:00 Test Item Value Reference Range Interpretation Comments MCH (test code = MCH) 28.3 pg 27.0-31.0 [facility]wallDoykfzcEDFPYCRNUS0268-91-91 21:33:00 Test Item Value Reference Range Interpretation Comments Platelet (test code = Platelet) 171 133-450 [facility] CenterLyovpqoCECZUUOXPL1051-01-38 21:33:00 Test Item Value Reference Range Interpretation Comments RBC (test code = RBC) 4.54 4.20-5.40 [facility] CenterIwnpntdEMEPRXJXHK3168-25-46 21:33:00 Test Item Value Reference Range Interpretation Comments WBC (test code = WBC) 6.4 3.7-10.4 [facility] HospitalCeeliomPKINNZYQLT6149-92-30 19:18:00 Test Item Value Reference Range Interpretation Comments CDC HIV 4th GEN (test Negative (05/18/15 2:18 code = CDC HIV 4th PM) GEN) [facility] CenterCARDIAC [id number] 18:26:00 Test Item Value Reference Range Interpretation Comments Troponin-I (test code no gt See_Comment [Auto mated message] The = Troponin-I) system which g enerated this result transmit marcelle reference range : <=0.40. The reference r melody was not used to interpr et this result as aranza l/abnormal. [facility] HospitalxCloud [id number] 18:26:00 Test Item Value Reference Range Interpretation Comments Bili Direct (test code 0.1 See_Comment [Aut omated message] The = Bili Direct) system which generated this result tra nsmitted reference range : <=0.3. The reference r melody was not used to int erpret this result as aranza l/abnormal. [facility] Hospitalx[facility] [id number] 18:26:00 Test Item Value Reference Range Interpretation Comments Globulin (test code = Globulin) 3.9 2.0-4.0 [facility] [id number] 18:26:00 Test Item Value Reference Range Interpretation Comments Alk Phos (test code = Alk Phos) 105 39-136 [facility] Hospitalx[facility] [id number] 18:26:00 Test Item Value Reference Range Interpretation Comments Bili Total (test code = Bili Total) 0.5 0.2-1.3 [facility] CenterWiseBanyan [id number] 18:26:00 Test Item Value Reference Range Interpretation Comments AST (test code = AST) 22 See_Comment [Auto mated message] The system which ge nerated this result transmit marcelle reference range : <=37. The reference range was not used to interpr et this result as aranza l/abnormal. [facility]2015-09-20 18:26:00 Test Item Value Reference Range Interpretation Comments ALT (test code = ALT) 18 See_Comment [Auto mated message] The system which ge nerated this result transmit marcelle reference range : <=65. The reference range was not used to interpr et this result as aranza l/abnormal. [facility]2015-09-20 18:26:00 Test Item Value Reference Range Interpretation Comments Total Protein (test code = Total 7.9 6.4-8.4 Protein) [facility]2015-09-20 18:26:00 Test Item Value Reference Range Interpretation Comments Albumin Lvl (test code = Albumin Lvl) 4.0 3.5-5.0 [facility]2015-09-20 18:26:00 Test Item Value Reference Range Interpretation Comments Bili Indirect (test 0.4 See_Comment [Automa marcelle message] The code = Bili Indirect) system which generated this result tra nsmitted reference range : <=1.0. The reference r melody was not used to int erpret this result as normal/abnormal . [facility]2015-09-20 18:26:00 Test Item Value Reference Range Interpretation Comments A/G Ratio (test code = A/G Ratio) 1.0 0.7-1.6 [place] [id number] 18:26:00 Test Item Value Reference Range Interpretation Comments Lipase Lvl (test code = Lipase Lvl) 266 73-393 [facility]2015-09-20 18:26:00 Test Item Value Reference Range Interpretation Comments eGFR (test code = eGFR) 78 [facility]2015-09-20 18:26:00 Test Item Value Reference Range Interpretation Comments Sodium Lvl (test code = Sodium Lvl) 138 135-145 [facility]2015-09-20 18:26:00 Test Item Value Reference Range Interpretation Comments Potassium Lvl (test code = Potassium 3.9 3.5-5.1 Lvl) [facility]2015-09-20 18:26:00 Test Item Value Reference Range Interpretation Comments Creatinine Lvl (test code = Creatinine 0.9 0.5-1.4 Lvl) [facility]2015-09-20 18:26:00 Test Item Value Reference Range Interpretation Comments Glucose Lvl (test code = Glucose Lvl) 87 70-99 [facility]2015-09-20 18:26:00 Test Item Value Reference Range Interpretation Comments BUN (test code = BUN) 7 7-22 [facility]2015-09-20 18:26:00 Test Item Value Reference Range Interpretation Comments Chloride Lvl (test code = Chloride Lvl) 103 95-109 [facility]2015-09-20 18:26:00 Test Item Value Reference Range Interpretation Comments CO2 (test code = CO2) 28 24-32 [facility]2015-09-20 18:26:00 Test Item Value Reference Range Interpretation Comments Calcium Lvl (test code = Calcium Lvl) 10.2 8.5-10.5 [facility]2015-09-20 18:26:00 Test Item Value Reference Range Interpretation Comments AGAP (test code = AGAP) 10.9 10.0-20.0 [facility]wallQlfnidcIGFQXWBCVV7034-11-56 18:26:00 Test Item Value Reference Range Interpretation Comments Hgb (test code = Hgb) 14.2 12.0-16.0 [facility]wallIsbievfOZNKGXAVPW7065-80-30 18:26:00 Test Item Value Reference Range Interpretation Comments RBC (test code = RBC) 4.96 4.20-5.40 [facility]wallQtzsbifMGJJWIWTKZ4290-06-01 18:26:00 Test Item Value Reference Range Interpretation Comments MCH (test code = MCH) 28.7 pg 27.0-31.0 [facility]wallAczbyzdTMKIKQBQMY6809-94-88 18:26:00 Test Item Value Reference Range Interpretation Comments MCHC (test code = MCHC) 32.9 32.0-36.0 [facility]wallZdgbshqOQUUVZIZUG2074-95-88 18:26:00 Test Item Value Reference Range Interpretation Comments Hct (test code = Hct) 43.3 36.0-48.0 [facility]wallExdqoiuRPULQOOEFH6369-29-99 18:26:00 Test Item Value Reference Range Interpretation Comments MCV (test code = MCV) 87.2 80.0-98.0 [facility]wallQdwkcwsNXABJCVRTX9954-25-40 18:26:00 Test Item Value Reference Range Interpretation Comments WBC (test code = WBC) 6.8 3.7-10.4 [facility]wallHukdpxvKMTDLDTIUP9066-72-77 18:26:00 Test Item Value Reference Range Interpretation Comments Platelet (test code = Platelet) 215 133-450 [facility] RockwallZlkmagtJCPBFKINVW1898-51-62 18:26:00 Test Item Value Reference Range Interpretation Comments MPV (test code = MPV) 8.2 7.4-10.4 [facility]wallWdjwpcuODPVQOBLVX1299-40-16 18:26:00 Test Item Value Reference Range Interpretation Comments RDW (test code = RDW) 14.5 11.5-14.5 [facility]wallRxhrjbpLFDHXPDLVO4488-31-88 18:26:00 Test Item Value Reference Range Interpretation Comments Segs (test code = Segs) 55.6 45.0-75.0 [facility]wallBhjyhaoMTLORZPRTK3470-63-85 18:26:00 Test Item Value Reference Range Interpretation Comments Lymphocytes (test code = Lymphocytes) 32.7 20.0-40.0 [facility]wallWlrylmvBCNOLYAKAV8255-68-67 18:26:00 Test Item Value Reference Range Interpretation Comments Monocytes (test code = Monocytes) 8.5 2.0-12.0 [facility] RockwallJzqpaqpJRBVNPHMAZ6959-36-96 18:26:00 Test Item Value Reference Range Interpretation Comments Segs-Bands # (test code = Segs-Bands #) 3.8 1.5-8.1 [facility] RockwallDsyepzgVUZIBPVGZF4398-68-14 18:26:00 Test Item Value Reference Range Interpretation Comments Basophils (test code = 0.6 See_Comment [Aut omated message] The Basophils) system which ge nerated this result tra nsmitted reference range : <=1.0. The reference r melody was not used to int erpret this result as normal/abnormal . [facility] RockwallGjftgvyYXZYWHLHYP1169-28-12 18:26:00 Test Item Value Reference Range Interpretation Comments Lymphocytes # (test code = Lymphocytes 2.2 1.0-5.5 #) [facility]wallYwdftqdJZPXNQOBDM0112-12-50 18:26:00 Test Item Value Reference Range Interpretation Comments Eosinophils (test code = 2.6 See_Comment [A utomated message] The Eosinophils) system which ge nerated this result tra nsmitted reference range : <=4.0. The reference r melody was not used to int erpret this result as normal/abnormal . [facility] CenterVrzxwhnBLBXKORLFO0396-49-38 18:26:00 Test Item Value Reference Range Interpretation Comments Eosinophils # (test code 0.2 See_Comment [A utomated message] The = Eosinophils #) system whic h generated this result tra nsmitted reference range : <=0.5. The reference r melody was not used to int erpret this result as normal/abnormal . [facility]tpwmywFICTTWQNCN6493-58-49 18:26:00 Test Item Value Reference Range Interpretation Comments Monocytes # (test code 0.6 See_Comment [Aut omated message] The = Monocytes #) system which generated this result tra nsmitted reference range : <=0.8. The reference r melody was not used to int erpret this result as normal/abnormal . [facility] CenterCcuihahGMNCDOGAUY3115-84-72 18:26:00 Test Item Value Reference Range Interpretation Comments [place]-Hep C Ab (test Positive *NA*(05/18/15 code = [place]-Hep C 1:26 PM) Ab) [facility] HospitalIhfuotoJVRWHTGGLT0171-55-56 18:26:00 Test Item Value Reference Range Interpretation Comments [place] HCV RNA Virload (test code = 133750 [place] HCV RNA Virload) [facility] CenterBmdllaoVDSIAKKMGI7751-91-16 18:26:00 Test Item Value Reference Range Interpretation Comments [place] HCV RNA Log10 (test code = 5.5 [place] HCV RNA Log10) [facility] CenterCARDIAC [id number] 18:51:00 Test Item Value Reference Range Interpretation Comments Troponin-I (test code no gt See_Comment [Auto mated message] The = Troponin-I) system which g enerated this result transmit marcelle reference range : <=0.40. The reference r melody was not used to interpr et this result as aranza l/abnormal. [facility] HospitalChurchkey Can CoCHEM [id number] 18:51:00 Test Item Value Reference Range Interpretation Comments eGFR (test code = eGFR) 90 [facility] CenterCHEM [id number] 18:51:00 Test Item Value Reference Range Interpretation Comments CO2 (test code = CO2) 28 24-32 [facility] HospitalChurchkey Can CoCHEM [id number] 18:51:00 Test Item Value Reference Range Interpretation Comments Calcium Lvl (test code = Calcium Lvl) 9.6 8.5-10.5 [facility]2015-09-11 18:51:00 Test Item Value Reference Range Interpretation Comments Chloride Lvl (test code = Chloride Lvl) 105 95-109 [facility]2015-09-11 18:51:00 Test Item Value Reference Range Interpretation Comments Creatinine Lvl (test code = Creatinine 0.8 0.5-1.4 Lvl) [facility]2015-09-11 18:51:00 Test Item Value Reference Range Interpretation Comments Sodium Lvl (test code = Sodium Lvl) 139 135-145 [facility]2015-09-11 18:51:00 Test Item Value Reference Range Interpretation Comments Potassium Lvl (test code = Potassium 3.7 3.5-5.1 Lvl) [facility]2015-09-11 18:51:00 Test Item Value Reference Range Interpretation Comments Glucose Lvl (test code = Glucose Lvl) 102 70-99 [facility]2015-09-11 18:51:00 Test Item Value Reference Range Interpretation Comments BUN (test code = BUN) 7 7-22 [facility]2015-09-11 18:51:00 Test Item Value Reference Range Interpretation Comments AGAP (test code = AGAP) 9.7 10.0-20.0 [facility]wallBkcewkrDFZWZMZILC1605-01-08 18:51:00 Test Item Value Reference Range Interpretation Comments RDW (test code = RDW) 14.4 11.5-14.5 [facility]wallEywurbuCOMRIPLRAH7485-16-48 18:51:00 Test Item Value Reference Range Interpretation Comments MCHC (test code = MCHC) 32.5 32.0-36.0 [facility] RockwallTwsgwvzAZZFCKKZPK4364-27-67 18:51:00 Test Item Value Reference Range Interpretation Comments MCH (test code = MCH) 28.7 pg 27.0-31.0 [facility] RockwallZwgfusjJAIYUFNPRD9188-35-10 18:51:00 Test Item Value Reference Range Interpretation Comments Platelet (test code = Platelet) 202 133-450 [facility] RockwallSkeushyCWDJJNCQCG4119-77-43 18:51:00 Test Item Value Reference Range Interpretation Comments MPV (test code = MPV) 7.6 7.4-10.4 [place] [id number] 18:51:00 Test Item Value Reference Range Interpretation Comments MCV (test code = MCV) 88.2 80.0-98.0 [facility] RockwallOexljxgGCALSDZEPG0580-20-74 18:51:00 Test Item Value Reference Range Interpretation Comments Hct (test code = Hct) 41.9 36.0-48.0 [facility]wallEjhsgtzHBVSFWGXYN8789-79-22 18:51:00 Test Item Value Reference Range Interpretation Comments RBC (test code = RBC) 4.75 4.20-5.40 [facility] RockwallTpkszgmLCLKSBYLIE8544-47-10 18:51:00 Test Item Value Reference Range Interpretation Comments Hgb (test code = Hgb) 13.6 12.0-16.0 [facility] RockwallTjwkeacPGSPPCISJK8240-22-49 18:51:00 Test Item Value Reference Range Interpretation Comments WBC (test code = WBC) 5.6 3.7-10.4 [facility] RockwallRqgtakaRMWORJWXDQ6222-41-90 18:51:00 Test Item Value Reference Range Interpretation Comments Lymphocytes # (test code = Lymphocytes 2.1 1.0-5.5 #) [facility] RockwallNyutekcCBLZOEFRUQ5437-93-41 18:51:00 Test Item Value Reference Range Interpretation Comments Basophils # (test code 0.1 See_Comment [Aut omated message] The = Basophils #) system which generated this result tra nsmitted reference range : <=0.2. The reference r melody was not used to int erpret this result as normal/abnormal . [facility] RockwallJeizdnnSCUEFJTKVY3144-43-26 18:51:00 Test Item Value Reference Range Interpretation Comments Eosinophils # (test code 0.2 See_Comment [A utomated message] The = Eosinophils #) system whic h generated this result tra nsmitted reference range : <=0.5. The reference r melody was not used to int erpret this result as normal/abnormal . [facility] RockwallHwyoyfpCRXZCIAEXA5773-03-88 18:51:00 Test Item Value Reference Range Interpretation Comments Monocytes # (test code 0.4 See_Comment [Aut omated message] The = Monocytes #) system which generated this result tra nsmitted reference range : <=0.8. The reference r melody was not used to int erpret this result as normal/abnormal . [facility]wallEbjqfwvVHZYWZICOQ7933-19-22 18:51:00 Test Item Value Reference Range Interpretation Comments Segs (test code = Segs) 50.8 45.0-75.0 [facility] HealthcareZojorpoPCCXSVRFQL9738-90-03 18:51:00 Test Item Value Reference Range Interpretation Comments Eosinophils (test code = 2.8 See_Comment [A utomated message] The Eosinophils) system which ge nerated this result tra nsmitted reference range : <=4.0. The reference r melody was not used to int erpret this result as normal/abnormal . [facility] HealthcareAhfiemcUGYLDOXUFV4016-36-11 18:51:00 Test Item Value Reference Range Interpretation Comments Segs-Bands # (test code = Segs-Bands #) 2.9 1.5-8.1 [facility]wallAsdifjjXPFBSJUOBW2637-02-53 18:51:00 Test Item Value Reference Range Interpretation Comments Basophils (test code = 1.1 See_Comment [Aut omated message] The Basophils) system which ge nerated this result tra nsmitted reference range : <=1.0. The reference r melody was not used to int erpret this result as normal/abnormal . [facility] HealthcareRxblijtXOUNVVGWYA6819-42-29 18:51:00 Test Item Value Reference Range Interpretation Comments Monocytes (test code = Monocytes) 7.7 2.0-12.0 [facility] HealthcareXkupfclEAXDGAFAHP8232-18-60 18:51:00 Test Item Value Reference Range Interpretation Comments Lymphocytes (test code = Lymphocytes) 37.6 20.0-40.0 [facility] CenterCARDIAC GDNXABX8357-79-30 22:03:00 Test Item Value Reference Range Interpretation Comments Troponin-I (test code no gt See_Comment [Auto mated message] The = Troponin-I) system which g enerated this result transmit marcelle reference range : <=0.40. The reference r melody was not used to interpr et this result as aranza l/abnormal. [facility] HospitalChurchkey Can CoCHEM [id number] 22:03:00 Test Item Value Reference Range Interpretation Comments Phosphorus (test code = Phosphorus) 3.2 2.5-4.5 [facility] CenterCHEM [id number] 22:03:00 Test Item Value Reference Range Interpretation Comments Magnesium Lvl (test code = Magnesium 2.1 1.8-2.4 Lvl) [facility] HospitalHxihflfYNLFNJHKAASA7677-80-84 22:03:00 Test Item Value Reference Range Interpretation Comments AGAP (test code = AGAP) 12.4 10.0-20.0 [facility]LccubpcFTEVSZICUIDI9578-77-29 22:03:00 Test Item Value Reference Range Interpretation Comments eGFR (test code = eGFR) 68 [facility] HospitalNgzukytGEGMMGHLMMJB5715-24-36 22:03:00 Test Item Value Reference Range Interpretation Comments Chloride Lvl (test code = Chloride Lvl) 104 95-109 [facility] HospitalGvmckqlZAFIDDDHGYAI0862-22-77 22:03:00 Test Item Value Reference Range Interpretation Comments Sodium Lvl (test code = Sodium Lvl) 141 135-145 [facility] HospitalQuqczfcXZOQHGWDIBHN3429-03-96 22:03:00 Test Item Value Reference Range Interpretation Comments CO2 (test code = CO2) 28 24-32 [facility] HospitalUqwojjpHDLGNFBRSBZH6557-22-91 22:03:00 Test Item Value Reference Range Interpretation Comments Calcium Lvl (test code = Calcium Lvl) 8.8 8.5-10.5 [facility] HospitalVsaotmhHWLGZPPLXBPR9575-63-66 22:03:00 Test Item Value Reference Range Interpretation Comments Potassium Lvl (test code = Potassium 3.4 3.5-5.1 Lvl) [facility] HospitalQojjdvkAINGKLJSCLAO7397-18-84 22:03:00 Test Item Value Reference Range Interpretation Comments Creatinine Lvl (test code = Creatinine 0.9 0.5-1.4 Lvl) [facility] HospitalAcvrjlfGJNFACWDWRMB9307-22-53 22:03:00 Test Item Value Reference Range Interpretation Comments Glucose Lvl (test code = Glucose Lvl) 92 70-99 [facility] HospitalSbdhijoYAAZNMLGKZNI5945-91-68 22:03:00 Test Item Value Reference Range Interpretation Comments BUN (test code = BUN) 6 7-22 [facility]wallRhusqpuQVBRXFSJGG5541-11-16 22:03:00 Test Item Value Reference Range Interpretation Comments MPV (test code = MPV) 8.0 7.4-10.4 [facility]wallNqlquieDJLQABPOXZ7789-09-52 22:03:00 Test Item Value Reference Range Interpretation Comments RDW (test code = RDW) 14.1 11.5-14.5 [facility]wallStvngqmQKRWDSKAUW9896-92-06 22:03:00 Test Item Value Reference Range Interpretation Comments Platelet (test code = Platelet) 212 133-450 [facility]wallEgeqrfdVSWBPFGVQL8306-26-21 22:03:00 Test Item Value Reference Range Interpretation Comments MCHC (test code = MCHC) 32.6 32.0-36.0 [facility]wallEbqualsQIWIMHPLWO3297-91-99 22:03:00 Test Item Value Reference Range Interpretation Comments WBC (test code = WBC) 8.0 3.7-10.4 [facility] RockwallHwcztwyIEROQTYINA4897-98-30 22:03:00 Test Item Value Reference Range Interpretation Comments Hct (test code = Hct) 40.2 36.0-48.0 [facility] RockwallJhjfuplJHCHWVWPMW5815-49-55 22:03:00 Test Item Value Reference Range Interpretation Comments MCV (test code = MCV) 87.4 80.0-98.0 [facility] RockwallSmelktxVVVYFLYAXC2499-98-85 22:03:00 Test Item Value Reference Range Interpretation Comments Hgb (test code = Hgb) 13.1 12.0-16.0 [facility]wallCwvmbuiKDLKHVZNJV4434-97-28 22:03:00 Test Item Value Reference Range Interpretation Comments RBC (test code = RBC) 4.60 4.20-5.40 [facility] RockwallXfflejfOLZIEHOVUF7358-84-59 22:03:00 Test Item Value Reference Range Interpretation Comments MCH (test code = MCH) 28.5 pg 27.0-31.0 [facility] RockwallSibenmdKUTQSLZOEQ2971-58-58 22:03:00 Test Item Value Reference Range Interpretation Comments Lymphocytes (test code = Lymphocytes) 26.3 20.0-40.0 [facility] [place]moakakLJUHNNLGLT9254-07-72 22:03:00 Test Item Value Reference Range Interpretation Comments Segs (test code = Segs) 60.9 45.0-75.0 [facility]wallShikcdyYMMOFZHLFI8489-69-68 22:03:00 Test Item Value Reference Range Interpretation Comments Basophils (test code = 1.0 See_Comment [Aut omated message] The Basophils) system which ge nerated this result tra nsmitted reference range : <=1.0. The reference r melody was not used to int erpret this result as normal/abnormal . [facility] RockwallOwmxbcmPLOYPIKKNB0675-05-05 22:03:00 Test Item Value Reference Range Interpretation Comments Eosinophils (test code = 3.0 See_Comment [A utomated message] The Eosinophils) system which ge nerated this result tra nsmitted reference range : <=4.0. The reference r melody was not used to int erpret this result as normal/abnormal . [facility] RockwallZgzegdmJOKSMIAYXF4081-94-56 22:03:00 Test Item Value Reference Range Interpretation Comments Monocytes (test code = Monocytes) 8.8 2.0-12.0 [facility] RockwallKlsheaeRBHRABYIEN6498-86-88 22:03:00 Test Item Value Reference Range Interpretation Comments Monocytes # (test code 0.7 See_Comment [Aut omated message] The = Monocytes #) system which generated this result tra nsmitted reference range : <=0.8. The reference r melody was not used to int erpret this result as normal/abnormal . [facility] RockwallYczeguwRYYAWWDNFM9098-25-99 22:03:00 Test Item Value Reference Range Interpretation Comments Eosinophils # (test code 0.2 See_Comment [A utomated message] The = Eosinophils #) system whic h generated this result tra nsmitted reference range : <=0.5. The reference r melody was not used to int erpret this result as normal/abnormal . [facility] Rockwa[id number] 22:03:00 Test Item Value Reference Range Interpretation Comments Lymphocytes # (test code = Lymphocytes 2.1 1.0-5.5 #) [facility] Ro[id number] 22:03:00 Test Item Value Reference Range Interpretation Comments Segs-Bands # (test code = Segs-Bands #) 4.9 1.5-8.1 [facility] RockwallQbxmhkyWGYIOAMNYH6781-88-94 22:03:00 Test Item Value Reference Range Interpretation Comments Basophils # (test code 0.1 See_Comment [Aut omated message] The = Basophils #) system which generated this result tra nsmitted reference range : <=0.2. The reference r melody was not used to int erpret this result as normal/abnormal . [facility]2015-09-04 21:38:00 Test Item Value Reference Range Interpretation Comments UA Nitrite (test code Negative (05/02/15 4:38 = UA Nitrite) PM) [facility] AND [id number] 21:38:00 Test Item Value Reference Range Interpretation Comments UA WBC (test code = UA WBC) 0-2 /HPF [facility]2015-09-04 21:38:00 Test Item Value Reference Range Interpretation Comments UA Leuk Est (test Moderate *ABN*(05/02/15 code = UA Leuk Est) 4:38 PM) [facility] AND [id number] 21:38:00 Test Item Value Reference Range Interpretation Comments UA RBC (test None Seen See_Comment [Automated [place]] code = UA RBC) (05/02/15 4:38 PM) The syste m which generated this result transmitted ref erence range: <=2. The reference range was not used to int erpret this result as normal/abnormal . [facility] AND [id number] 21:38:00 Test Item Value Reference Range Interpretation Comments UA Sq Epi (test code = UA Sq Occasional /LPF Epi) [facility] AND [id number] 21:38:00 Test Item Value Reference Range Interpretation Comments UA Bacteria (test code = None Seen (05/02/15 UA Bacteria) 4:38 PM) [facility] AND [id number] 21:38:00 Test Item Value Reference Range Interpretation Comments UA Mucus (test code = UA Mucus) Rare /LPF [facility] AND [id number] 21:38:00 Test Item Value Reference Range Interpretation Comments UA Glucose (test code Negative (05/02/15 4:38 = UA Glucose) PM) [facility] AND [id number] 21:38:00 Test Item Value Reference Range Interpretation Comments UA Ketones (test code Negative *NA*(05/02/15 = UA Ketones) 4:38 PM) [facility] AND [id number] 21:38:00 Test Item Value Reference Range Interpretation Comments UA Urobilinogen (test code = UA 0.2 0.1-1.0 Urobilinogen) [facility] AND [id number] 21:38:00 Test Item Value Reference Range Interpretation Comments UA Blood (test code = Negative (05/02/15 4:38 UA Blood) PM) [facility] AND [id number] 21:38:00 Test Item Value Reference Range Interpretation Comments UA Bili (test code = Negative *NA*(05/02/15 UA Bili) 4:38 PM) [facility] AND [id number] 21:38:00 Test Item Value Reference Range Interpretation Comments UA Color (test code = Yellow *NA*(05/02/15 4:38 UA Color) PM) [facility] AND [id number] 21:38:00 Test Item Value Reference Range Interpretation Comments UA pH (test code = UA pH) 6.0 1 5.0-8.0 [facility] AND [id number] 21:38:00 Test Item Value Reference Range Interpretation Comments UA Turbidity (test code Slight Cloudy (05/02/15 = UA Turbidity) 4:38 PM) [facility] AND [id number] 21:38:00 Test Item Value Reference Range Interpretation Comments UA Protein (test code Negative (05/02/15 4:38 = UA Protein) PM) [facility] AND [id number] 21:38:00 Test Item Value Reference Range Interpretation Comments UA Spec Grav (test code = UA Spec 1.006 1 Grav) [facility]2015-07-27 09:28:00 Test Item Value Reference Range Interpretation Comments Lipase Lvl (test code = Lipase Lvl) 188 73-393 [facility]2015-07-27 09:28:00 Test Item Value Reference Range Interpretation Comments eGFR (test code = eGFR) 106 [facility]2015-07-27 09:28:00 Test Item Value Reference Range Interpretation Comments Creatinine Lvl (test code = Creatinine 0.7 0.5-1.4 Lvl) [facility]2015-07-27 09:28:00 Test Item Value Reference Range Interpretation Comments BUN (test code = BUN) 4 7-22 [facility]2015-07-27 09:28:00 Test Item Value Reference Range Interpretation Comments Potassium Lvl (test code = Potassium 3.2 3.5-5.1 Lvl) [facility]2015-07-27 09:28:00 Test Item Value Reference Range Interpretation Comments Sodium Lvl (test code = Sodium Lvl) 142 135-145 [facility]2015-07-27 09:28:00 Test Item Value Reference Range Interpretation Comments Glucose Lvl (test code = Glucose Lvl) 91 70-99 [facility]2015-07-27 09:28:00 Test Item Value Reference Range Interpretation Comments Albumin Lvl (test code = Albumin Lvl) 3.5 3.5-5.0 [facility]2015-07-27 09:28:00 Test Item Value Reference Range Interpretation Comments Total Protein (test code = Total 6.6 6.4-8.4 Protein) [facility]2015-07-27 09:28:00 Test Item Value Reference Range Interpretation Comments Chloride Lvl (test code = Chloride Lvl) 107 95-109 [facility]2015-07-27 09:28:00 Test Item Value Reference Range Interpretation Comments Calcium Lvl (test code = Calcium Lvl) 9.1 8.5-10.5 [facility]2015-07-27 09:28:00 Test Item Value Reference Range Interpretation Comments CO2 (test code = CO2) 27 24-32 [place] [id number] 09:28:00 Test Item Value Reference Range Interpretation Comments AGAP (test code = AGAP) 11.2 10.0-20.0 [facility]2015-07-27 09:28:00 Test Item Value Reference Range Interpretation Comments AST (test code = AST) 21 See_Comment [Auto mated message] The system which ge nerated this result transmit marcelle reference range : <=37. The reference range was not used to interpr et this result as aranza l/abnormal. [facility]2015-07-27 09:28:00 Test Item Value Reference Range Interpretation Comments ALT (test code = ALT) 34 See_Comment [Auto mated message] The system which ge nerated this result transmit marcelle reference range : <=65. The reference range was not used to interpr et this result as aranza l/abnormal. [facility]2015-07-27 09:28:00 Test Item Value Reference Range Interpretation Comments Bili Total (test code = Bili Total) 0.6 0.2-1.3 [facility]2015-07-27 09:28:00 Test Item Value Reference Range Interpretation Comments Alk Phos (test code = Alk Phos) 95 39-136 [facility]2015-07-27 09:28:00 Test Item Value Reference Range Interpretation Comments B/C Ratio (test code = B/C Ratio) 6 6-25 [facility]2015-07-27 09:28:00 Test Item Value Reference Range Interpretation Comments A/G Ratio (test code = A/G Ratio) 1.1 0.7-1.6 [facility]2015-07-27 09:28:00 Test Item Value Reference Range Interpretation Comments Globulin (test code = Globulin) 3.1 2.0-4.0 [id number] 09:28:00 Test Item Value Reference Range Interpretation Comments Monocytes (test code = Monocytes) 11.3 2.0-12.0 [facility] Rockwa[id number] 09:28:00 Test Item Value Reference Range Interpretation Comments Lymphocytes (test code = Lymphocytes) 27.1 20.0-40.0 [facility] RockwallCfbpznmYSTOFDITKL0984-56-08 09:28:00 Test Item Value Reference Range Interpretation Comments Eosinophils (test code = 5.9 See_Comment [A utomated message] The Eosinophils) system which ge nerated this result tra nsmitted reference range : <=4.0. The reference r melody was not used to int erpret this result as normal/abnormal . [facility] Ro[id number] 09:28:00 Test Item Value Reference Range Interpretation Comments Segs-Bands # (test code = Segs-Bands #) 3.3 1.5-8.1 [facility] RockwallRjjrmdeMRYRLOZZYP0547-03-08 09:28:00 Test Item Value Reference Range Interpretation Comments Basophils (test code = 0.7 See_Comment [Aut omated message] The Basophils) system which ge nerated this result tra nsmitted reference range : <=1.0. The reference r melody was not used to int erpret this result as normal/abnormal . [facility] RockwallDukgzcoQSORYTZCJM6381-60-14 09:28:00 Test Item Value Reference Range Interpretation Comments Segs (test code = Segs) 55.0 45.0-75.0 [facility] RockwallLhyphqtCFXPQOXEIX3175-43-20 09:28:00 Test Item Value Reference Range Interpretation Comments Monocytes # (test code 0.7 See_Comment [Aut omated message] The = Monocytes #) system which generated this result tra nsmitted reference range : <=0.8. The reference r melody was not used to int erpret this result as normal/abnormal . [facility] Rockwa[id number] 09:28:00 Test Item Value Reference Range Interpretation Comments Lymphocytes # (test code = Lymphocytes 1.6 1.0-5.5 #) [facility] Ro[id number] 09:28:00 Test Item Value Reference Range Interpretation Comments Eosinophils # (test code 0.4 See_Comment [A utomated message] The = Eosinophils #) system whic h generated this result tra nsmitted reference range : <=0.5. The reference r melody was not used to int erpret this result as normal/abnormal . [facility] RockwallVspanunOSHZVCZFQI7088-77-45 09:28:00 Test Item Value Reference Range Interpretation Comments RBC (test code = RBC) 4.21 4.20-5.40 [facility] RockwallZigodmsDKWUZNPDEH6114-38-84 09:28:00 Test Item Value Reference Range Interpretation Comments WBC (test code = WBC) 5.9 3.7-10.4 [facility] RockwallNqzrgjzZYLSDICPOF3400-75-93 09:28:00 Test Item Value Reference Range Interpretation Comments Platelet (test code = Platelet) 204 133-450 [facility] RockwallEnupsukVEBKTOHGQD3271-17-19 09:28:00 Test Item Value Reference Range Interpretation Comments MCHC (test code = MCHC) 32.4 32.0-36.0 [facility] RockwallOsuctmfCGFXFBBXYJ0828-71-76 09:28:00 Test Item Value Reference Range Interpretation Comments RDW (test code = RDW) 14.2 11.5-14.5 [facility] RockwallScpqejfYFGYCHPORE7545-31-52 09:28:00 Test Item Value Reference Range Interpretation Comments MPV (test code = MPV) 8.6 7.4-10.4 [facility] RockwallEgtoiedDQGVBTBOYJ4947-06-66 09:28:00 Test Item Value Reference Range Interpretation Comments Hct (test code = Hct) 37.2 36.0-48.0 [facility] RockwallGnouhwwHIKUNPMKRI0514-95-20 09:28:00 Test Item Value Reference Range Interpretation Comments MCV (test code = MCV) 88.3 80.0-98.0 [place] [id number] 09:28:00 Test Item Value Reference Range Interpretation Comments Hgb (test code = Hgb) 12.1 12.0-16.0 [facility] RockwallGjnlfvtZTYMXYDSXK2567-49-84 09:28:00 Test Item Value Reference Range Interpretation Comments MCH (test code = MCH) 28.6 pg 27.0-31.0 [facility]2015-07-26 18:14:00 Test Item Value Reference Range Interpretation Comments Occult Bld Stl (test Negative (03/23/15 1:14 code = Occult Bld Stl) PM) [facility]ywtgQYUJCLIMMY4270-83-09 10:51:00 Test Item Value Reference Range Interpretation Comments Lymphocytes (test code = Lymphocytes) 23.6 20.0-40.0 [facility] HealthcareTnxxgjbTKZDJDQGQU0667-69-45 10:51:00 Test Item Value Reference Range Interpretation Comments Segs (test code = Segs) 60.8 45.0-75.0 [facility] RockwallDfjaqsvZMMKLGFKLI2731-65-80 10:51:00 Test Item Value Reference Range Interpretation Comments MPV (test code = MPV) 8.3 7.4-10.4 [facility] RockwallNphzshkAJSYFVAYPK0231-97-25 10:51:00 Test Item Value Reference Range Interpretation Comments Platelet (test code = Platelet) 196 133-450 [facility] RockwallKpzefgsGAFPKIAAQL7285-12-43 10:51:00 Test Item Value Reference Range Interpretation Comments RDW (test code = RDW) 14.6 11.5-14.5 [facility] RockwallEdbakypFBWNSDQCNB2756-72-75 10:51:00 Test Item Value Reference Range Interpretation Comments MCV (test code = MCV) 88.0 80.0-98.0 [facility] HealthcareCdoiiswVXBGDOCHYZ2651-81-21 10:51:00 Test Item Value Reference Range Interpretation Comments MCH (test code = MCH) 28.7 pg 27.0-31.0 [facility] HealthcareApanopyJRGRCFOJGH1505-10-78 10:51:00 Test Item Value Reference Range Interpretation Comments Hct (test code = Hct) 34.7 36.0-48.0 [facility] HealthcareUbetjgsMVJHWCRBXR2561-04-79 10:51:00 Test Item Value Reference Range Interpretation Comments MCHC (test code = MCHC) 32.6 32.0-36.0 [facility] RockwallOjgcspvVGXDMCEHBJ7941-99-37 10:51:00 Test Item Value Reference Range Interpretation Comments Hgb (test code = Hgb) 11.3 12.0-16.0 [facility] RockwallMidccjjBBXLEZGDXJ1341-01-67 10:51:00 Test Item Value Reference Range Interpretation Comments RBC (test code = RBC) 3.94 4.20-5.40 [facility] CenterZkuafyoUCRCLVTLVU2435-71-95 10:51:00 Test Item Value Reference Range Interpretation Comments WBC (test code = WBC) 5.6 3.7-10.4 [facility] [id number] 10:51:00 Test Item Value Reference Range Interpretation Comments CK MB (test code = CK MB) 0.8 0.5-3.6 [facility] [id number] 10:51:00 Test Item Value Reference Range Interpretation Comments Total CK (test code = Total CK) 70 12-191 [facility] [id number] 10:51:00 Test Item Value Reference Range Interpretation Comments CK MB Index (test 1.1 See_Comment [Automate d message] The code = CK MB Index) system w [employer] generated this result transmit marcelle reference range : <=2.5. The reference range was not used to interpr et this result as aranza l/abnormal. [facility]2015-07-26 10:51:00 Test Item Value Reference Range Interpretation Comments eGFR (test code = eGFR) 106 [facility]2015-07-26 10:51:00 Test Item Value Reference Range Interpretation Comments CO2 (test code = CO2) 27 24-32 [facility]2015-07-26 10:51:00 Test Item Value Reference Range Interpretation Comments Calcium Lvl (test code = Calcium Lvl) 9.2 8.5-10.5 [facility]2015-07-26 10:51:00 Test Item Value Reference Range Interpretation Comments Chloride Lvl (test code = Chloride Lvl) 108 95-109 [facility]2015-07-26 10:51:00 Test Item Value Reference Range Interpretation Comments Sodium Lvl (test code = Sodium Lvl) 142 135-145 [facility]2015-07-26 10:51:00 Test Item Value Reference Range Interpretation Comments Potassium Lvl (test code = Potassium 3.5 3.5-5.1 Lvl) [facility]2015-07-26 10:51:00 Test Item Value Reference Range Interpretation Comments Creatinine Lvl (test code = Creatinine 0.7 0.5-1.4 Lvl) [facility]2015-07-26 10:51:00 Test Item Value Reference Range Interpretation Comments BUN (test code = BUN) 8 7-22 [facility]2015-07-26 10:51:00 Test Item Value Reference Range Interpretation Comments Glucose Lvl (test code = Glucose Lvl) 101 70-99 [facility]2015-07-26 10:51:00 Test Item Value Reference Range Interpretation Comments AGAP (test code = AGAP) 10.5 10.0-20.0 [facility] RockwallSbzgpxwXSELDTBEOQ1426-21-72 10:51:00 Test Item Value Reference Range Interpretation Comments Lymphocytes # (test code = Lymphocytes 1.3 1.0-5.5 #) [facility] RockwallFxycarzPPOTVFKYUS8733-54-54 10:51:00 Test Item Value Reference Range Interpretation Comments Segs-Bands # (test code = Segs-Bands #) 3.4 1.5-8.1 [facility] RockwallCgvvnpqAEJAGIYZLV3690-39-14 10:51:00 Test Item Value Reference Range Interpretation Comments Basophils (test code = 0.6 See_Comment [Aut omated message] The Basophils) system which ge nerated this result tra nsmitted reference range : <=1.0. The reference r melody was not used to int erpret this result as normal/abnormal . [facility] RockwallDrndtqfNNNCSCQGLU4636-18-46 10:51:00 Test Item Value Reference Range Interpretation Comments Eosinophils (test code = 4.0 See_Comment [A utomated message] The Eosinophils) system which ge nerated this result tra nsmitted reference range : <=4.0. The reference r melody was not used to int erpret this result as normal/abnormal . [facility] R[id number] 10:51:00 Test Item Value Reference Range Interpretation Comments Eosinophils # (test code 0.2 See_Comment [A utomated message] The = Eosinophils #) system whic h generated this result tra nsmitted reference range : <=0.5. The reference r melody was not used to int erpret this result as normal/abnormal . [facility] RockwallTcfpddwYZDPOITLCT0726-65-44 10:51:00 Test Item Value Reference Range Interpretation Comments Monocytes # (test code 0.6 See_Comment [Aut omated message] The = Monocytes #) system which generated this result tra nsmitted reference range : <=0.8. The reference r melody was not used to int erpret this result as normal/abnormal . [facility] HealthcareQvcoytqDFIJTAKGDZ8686-64-56 10:51:00 Test Item Value Reference Range Interpretation Comments Monocytes (test code = Monocytes) 11.0 2.0-12.0 [facility] [id number] 10:19:00 Test Item Value Reference Range Interpretation Comments CK MB Index (test 1.6 See_Comment [Automate d message] The code = CK MB Index) system w [facility] generated this result transmit marcelle reference range : <=2.5. The reference range was not used to interpr et this result as aranza l/abnormal. [facility] [id number] 10:19:00 Test Item Value Reference Range Interpretation Comments CK MB (test code = CK MB) 1.0 0.5-3.6 [facility] [id number] 10:19:00 Test Item Value Reference Range Interpretation Comments Total CK (test code = Total CK) 64 12-191 [facility] CenterWiseBanyan [id number] 10:19:00 Test Item Value Reference Range Interpretation Comments eGFR (test code = eGFR) 111 [facility] [id number] 10:19:00 Test Item Value Reference Range Interpretation Comments Calcium Lvl (test code = Calcium Lvl) 8.7 8.5-10.5 [facility] FMWWG9700-11-64 10:19:00 Test Item Value Reference Range Interpretation Comments Sodium Lvl (test code = Sodium Lvl) 144 135-145 [facility] PGCYM2819-78-06 10:19:00 Test Item Value Reference Range Interpretation Comments Potassium Lvl (test code = Potassium 3.9 3.5-5.1 Lvl) [facility] [id number] 10:19:00 Test Item Value Reference Range Interpretation Comments Chloride Lvl (test code = Chloride Lvl) 112 95-109 [facility] CenterWiseB[facility] [id number] 10:19:00 Test Item Value Reference Range Interpretation Comments CO2 (test code = CO2) 27 24-32 [facility] [id number] 10:19:00 Test Item Value Reference Range Interpretation Comments Glucose Lvl (test code = Glucose Lvl) 94 70-99 [facility]2015-07-25 10:19:00 Test Item Value Reference Range Interpretation Comments BUN (test code = BUN) 8 7-22 [facility]2015-07-25 10:19:00 Test Item Value Reference Range Interpretation Comments Creatinine Lvl (test code = Creatinine 0.6 0.5-1.4 Lvl) [facility]2015-07-25 10:19:00 Test Item Value Reference Range Interpretation Comments AGAP (test code = AGAP) 8.9 10.0-20.0 [facility]wallNwwdujrDWUFQREOQL4127-13-09 10:19:00 Test Item Value Reference Range Interpretation Comments Eosinophils # (test code 0.2 See_Comment [A utomated message] The = Eosinophils #) system whic h generated this result tra nsmitted reference range : <=0.5. The reference r melody was not used to int erpret this result as normal/abnormal . [facility]wallAlarrhqCKNGINIDNX0311-92-49 10:19:00 Test Item Value Reference Range Interpretation Comments Monocytes # (test code 0.5 See_Comment [Aut omated message] The = Monocytes #) system which generated this result tra nsmitted reference range : <=0.8. The reference r melody was not used to int erpret this result as normal/abnormal . [facility] RockwallWvufqucYENDZNNXME4109-66-67 10:19:00 Test Item Value Reference Range Interpretation Comments Basophils (test code = 0.9 See_Comment [Aut omated message] The Basophils) system which ge nerated this result tra nsmitted reference range : <=1.0. The reference r melody was not used to int erpret this result as normal/abnormal . [facility] RockwallEpgkmchOWZFJJWTAE5909-88-33 10:19:00 Test Item Value Reference Range Interpretation Comments Monocytes (test code = Monocytes) 11.2 2.0-12.0 [facility] RockwallUcmulbpUUFEAFMRHC5102-56-43 10:19:00 Test Item Value Reference Range Interpretation Comments Segs-Bands # (test code = Segs-Bands #) 2.1 1.5-8.1 [facility] RockwallYgsqovdLUZEJJXEJE6669-58-19 10:19:00 Test Item Value Reference Range Interpretation Comments Eosinophils (test code = 3.7 See_Comment [A utomated message] The Eosinophils) system which ge nerated this result tra nsmitted reference range : <=4.0. The reference r melody was not used to int erpret this result as normal/abnormal . [facility]wallFbsexwwMLUOXXQRAH6444-15-30 10:19:00 Test Item Value Reference Range Interpretation Comments Lymphocytes # (test code = Lymphocytes 1.6 1.0-5.5 #) [facility]wallDowrrcuIYNSMZHLKV3598-85-60 10:19:00 Test Item Value Reference Range Interpretation Comments Segs (test code = Segs) 48.6 45.0-75.0 [facility]wallPeadaabVXQYDAOLDL1349-49-62 10:19:00 Test Item Value Reference Range Interpretation Comments Lymphocytes (test code = Lymphocytes) 35.6 20.0-40.0 [facility]wallHpqtqorJNCMSMXTLV3681-43-84 10:19:00 Test Item Value Reference Range Interpretation Comments MPV (test code = MPV) 8.9 7.4-10.4 [facility]wallPsdqraaVDYMJNUFRN1526-61-74 10:19:00 Test Item Value Reference Range Interpretation Comments WBC (test code = WBC) 4.4 3.7-10.4 [facility]wallTnbpzmwPTGZWCCHWW1396-72-30 10:19:00 Test Item Value Reference Range Interpretation Comments MCH (test code = MCH) 29.9 pg 27.0-31.0 [facility] RockwallUzooqklOWPSFKWLFR5332-25-31 10:19:00 Test Item Value Reference Range Interpretation Comments MCV (test code = MCV) 86.5 80.0-98.0 [facility]wallRvhwnmsPWHLXJWIVV3620-84-55 10:19:00 Test Item Value Reference Range Interpretation Comments MCHC (test code = MCHC) 34.6 32.0-36.0 [facility]wallAvhyyasWIBWMIHHQE6298-31-81 10:19:00 Test Item Value Reference Range Interpretation Comments Hgb (test code = Hgb) 11.7 12.0-16.0 [facility]wallIywdhsjSJCYAVCTPA9013-92-37 10:19:00 Test Item Value Reference Range Interpretation Comments RBC (test code = RBC) 3.92 4.20-5.40 [facility]wallPrffdoeXARVCOYJCJ4605-89-11 10:19:00 Test Item Value Reference Range Interpretation Comments Hct (test code = Hct) 33.9 36.0-48.0 [facility]uynhaWSIPOHSJBA4320-67-09 10:19:00 Test Item Value Reference Range Interpretation Comments RDW (test code = RDW) 14.6 11.5-14.5 [facility] CenterVunlpvmNGNOQLKVCB5401-01-48 10:19:00 Test Item Value Reference Range Interpretation Comments Platelet (test code = Platelet) 176 133-450 [facility] CenterHeyoAC [id number] 03:22:00 Test Item Value Reference Range Interpretation Comments CK MB Index (test 1.6 See_Comment [Automate d message] The code = CK MB Index) system w [facility] generated this result transmit marcelle reference range : <=2.5. The reference range was not used to interpr et this result as aranza l/abnormal. [facility] HospitalAstroloMe UQJMBJY0474-44-80 03:22:00 Test Item Value Reference Range Interpretation Comments Total CK (test code = Total CK) 77 12-191 [facility] CenterHeyo [id number] 03:22:00 Test Item Value Reference Range Interpretation Comments CK MB (test code = CK MB) 1.2 0.5-3.6 [facility] HospitalxCloud [id number] 02:44:00 Test Item Value Reference Range Interpretation Comments Lactic Acid Lvl (test code = Lactic 1.4 0.5-2.2 Acid Lvl) [facility] HospitalAstroloMe [id number] 21:13:00 Test Item Value Reference Range Interpretation Comments Troponin-I (test code no gt See_Comment [Auto mated message] The = Troponin-I) system which g enerated this result transmit marcelle reference range : <=0.40. The reference r melody was not used to interpr et this result as aranza l/abnormal. [facility] [employer] [id number] 21:13:00 Test Item Value Reference Range Interpretation Comments Globulin (test code = Globulin) 3.3 2.0-4.0 [facility] [employer] [id number] 21:13:00 Test Item Value Reference Range Interpretation Comments A/G Ratio (test code = A/G Ratio) 1.1 0.7-1.6 [facility] [employer] [id number] 21:13:00 Test Item Value Reference Range Interpretation Comments B/C Ratio (test code = B/C Ratio) 16 6-25 [facility]2015-07-24 21:13:00 Test Item Value Reference Range Interpretation Comments Alk Phos (test code = Alk Phos) 105 39-136 [facility]2015-07-24 21:13:00 Test Item Value Reference Range Interpretation Comments AST (test code = AST) 25 See_Comment [Auto mated message] The system which ge nerated this result transmit marcelle reference range : <=37. The reference range was not used to interpr et this result as aranza l/abnormal. [facility]2015-07-24 21:13:00 Test Item Value Reference Range Interpretation Comments Bili Total (test code = Bili Total) 0.5 0.2-1.3 [facility]2015-07-24 21:13:00 Test Item Value Reference Range Interpretation Comments ALT (test code = ALT) 32 See_Comment [Auto mated message] The system which ge nerated this result transmit marcelle reference range : <=65. The reference range was not used to interpr et this result as aranza l/abnormal. [facility]2015-07-24 21:13:00 Test Item Value Reference Range Interpretation Comments Albumin Lvl (test code = Albumin Lvl) 3.7 3.5-5.0 [facility]2015-07-24 21:13:00 Test Item Value Reference Range Interpretation Comments Total Protein (test code = Total 7.0 6.4-8.4 Protein) [facility]wallUhcaahgUVCQMLQXME3047-93-27 21:13:00 Test Item Value Reference Range Interpretation Comments Basophils # (test code 0.0 See_Comment [Aut omated message] The = Basophils #) system which generated this result tra nsmitted reference range : <=0.2. The reference r melody was not used to int erpret this result as normal/abnormal . [facility]wallLlfnzfnMEWFZUZPSJ4866-72-61 21:13:00 Test Item Value Reference Range Interpretation Comments INR (test code = INR) 1.04 0.85-1.17 [facility]wallYgytrntCBWNXXLRSR6840-61-64 21:13:00 Test Item Value Reference Range Interpretation Comments PT (test code = PT) 13.6 s 12.0-14.7 [facility] RockwallBaipwopJCGKFPRRGZ3588-21-19 21:13:00 Test Item Value Reference Range Interpretation Comments PTT (test code = PTT) 35.2 s 22.9-35.8 [facility] SumZeroannCARDIAC [id number] 21:10:00 Test Item Value Reference Range Interpretation Comments BNP (test code = BNP) 6 [facility]annCARDIAC [id number] 21:02:00 Test Item Value Reference Range Interpretation Comments Troponin-I (test code no gt See_Comment [Auto mated message] The = Troponin-I) system which g enerated this result transmit marcelle reference range : <=0.40. The reference r melody was not used to interpr et this result as aranza l/abnormal. [facility] SumZeroannCARWalkaboutAC [id number] 21:02:00 Test Item Value Reference Range Interpretation Comments BNP (test code = BNP) 31 [facility] SumZeroannHeyoAC [id number] 21:02:00 Test Item Value Reference Range Interpretation Comments CK MB (test code = CK MB) 0.8 0.5-3.6 [facility] SumZeroannHeyoAC [id number] 21:02:00 Test Item Value Reference Range Interpretation Comments Total CK (test code = Total CK) 70 12-191 [facility] [employer]AC [id number] 21:02:00 Test Item Value Reference Range Interpretation Comments CK MB Index (test 1.1 See_Comment [Automate d message] The code = CK MB Index) system w [facility] generated this result transmit marcelle reference range : <=2.5. The reference range was not used to interpr et this result as aranza l/abnormal. [employer] [id number] 21:02:00 Test Item Value Reference Range Interpretation Comments eGFR (test code = eGFR) 106 [facility] [id number] 21:02:00 Test Item Value Reference Range Interpretation Comments Alk Phos (test code = Alk Phos) 99 39-136 [facility] [id number] 21:02:00 Test Item Value Reference Range Interpretation Comments Bili Total (test code = Bili Total) 0.6 0.2-1.3 [facility] [id number] 21:02:00 Test Item Value Reference Range Interpretation Comments B/C Ratio (test code = B/C Ratio) 11 6-25 [facility]2015-07-14 21:02:00 Test Item Value Reference Range Interpretation Comments AGAP (test code = AGAP) 9.4 10.0-20.0 [facility]2015-07-14 21:02:00 Test Item Value Reference Range Interpretation Comments Globulin (test code = Globulin) 3.1 2.0-4.0 [facility]2015-07-14 21:02:00 Test Item Value Reference Range Interpretation Comments A/G Ratio (test code = A/G Ratio) 1.1 0.7-1.6 [facility]2015-07-14 21:02:00 Test Item Value Reference Range Interpretation Comments Glucose Lvl (test code = Glucose Lvl) 73 70-99 [facility]2015-07-14 21:02:00 Test Item Value Reference Range Interpretation Comments BUN (test code = BUN) 8 7-22 [facility]2015-07-14 21:02:00 Test Item Value Reference Range Interpretation Comments Creatinine Lvl (test code = Creatinine 0.7 0.5-1.4 Lvl) [facility]2015-07-14 21:02:00 Test Item Value Reference Range Interpretation Comments Sodium Lvl (test code = Sodium Lvl) 143 135-145 [facility]2015-07-14 21:02:00 Test Item Value Reference Range Interpretation Comments Potassium Lvl (test code = Potassium 3.4 3.5-5.1 Lvl) [facility]2015-07-14 21:02:00 Test Item Value Reference Range Interpretation Comments CO2 (test code = CO2) 28 24-32 [facility]2015-07-14 21:02:00 Test Item Value Reference Range Interpretation Comments Chloride Lvl (test code = Chloride Lvl) 109 95-109 [facility]2015-07-14 21:02:00 Test Item Value Reference Range Interpretation Comments Calcium Lvl (test code = Calcium Lvl) 8.9 8.5-10.5 [facility]2015-07-14 21:02:00 Test Item Value Reference Range Interpretation Comments Total Protein (test code = Total 6.5 6.4-8.4 Protein) [facility]2015-07-14 21:02:00 Test Item Value Reference Range Interpretation Comments Albumin Lvl (test code = Albumin Lvl) 3.4 3.5-5.0 [facility]2015-07-14 21:02:00 Test Item Value Reference Range Interpretation Comments ALT (test code = ALT) 30 See_Comment [Auto mated message] The system which ge nerated this result transmit marcelle reference range : <=65. The reference range was not used to interpr et this result as aranza l/abnormal. [facility] CenterWiseBanyan [id number] 21:02:00 Test Item Value Reference Range Interpretation Comments AST (test code = AST) 21 See_Comment [Auto mated message] The system which ge nerated this result transmit marcelle reference range : <=37. The reference range was not used to interpr et this result as aranza l/abnormal. [facility]wallLimyrqiUDDRDOGYPL7617-18-03 21:02:00 Test Item Value Reference Range Interpretation Comments RDW (test code = RDW) 15.1 11.5-14.5 [facility] RockwallZbmxewvLQAQTUZQFC3439-07-99 21:02:00 Test Item Value Reference Range Interpretation Comments MCHC (test code = MCHC) 33.1 32.0-36.0 [facility]wallMkzlpauHHELZKNOBR0460-99-01 21:02:00 Test Item Value Reference Range Interpretation Comments Platelet (test code = Platelet) 190 133-450 [facility]wallWdrvoqaIBNBWOLPDB0011-40-31 21:02:00 Test Item Value Reference Range Interpretation Comments MPV (test code = MPV) 8.1 7.4-10.4 [facility] Roc[id number] 21:02:00 Test Item Value Reference Range Interpretation Comments Hct (test code = Hct) 34.6 36.0-48.0 [facility]wallPdrganpSRSEPJBOZC5346-84-01 21:02:00 Test Item Value Reference Range Interpretation Comments Hgb (test code = Hgb) 11.5 12.0-16.0 [facility]wallKbaajriRHJBTXOIWZ7055-73-31 21:02:00 Test Item Value Reference Range Interpretation Comments MCH (test code = MCH) 28.8 pg 27.0-31.0 [facility] RockwallUvxudlzHKJGYKIDHE9946-07-48 21:02:00 Test Item Value Reference Range Interpretation Comments MCV (test code = MCV) 86.9 80.0-98.0 [place] [id number] 21:02:00 Test Item Value Reference Range Interpretation Comments RBC (test code = RBC) 3.98 4.20-5.40 [facility]wallLhazfywJAZOCGKPJN4820-31-04 21:02:00 Test Item Value Reference Range Interpretation Comments WBC (test code = WBC) 6.5 3.7-10.4 [facility] RockwallTwaypmtOEMLXPGYJL1827-56-82 21:02:00 Test Item Value Reference Range Interpretation Comments PTT (test code = PTT) 32.8 s 22.9-35.8 [facility] RockwallXuxfnsfWCKRPVZVTE5379-14-53 21:02:00 Test Item Value Reference Range Interpretation Comments PT (test code = PT) 13.3 s 12.0-14.7 [facility] RockwallHlaeiodGTYEOAAIOE9406-70-76 21:02:00 Test Item Value Reference Range Interpretation Comments INR (test code = INR) 1.01 0.85-1.17 [facility] RockwallRqbirvxAVFUIYXRZR4460-12-30 21:02:00 Test Item Value Reference Range Interpretation Comments Basophils # (test code 0.0 See_Comment [Aut omated message] The = Basophils #) system which generated this result tra nsmitted reference range : <=0.2. The reference r melody was not used to int erpret this result as normal/abnormal . [facility] RockwallNsywalsNWOAACWAXR3883-38-79 21:02:00 Test Item Value Reference Range Interpretation Comments Segs-Bands # (test code = Segs-Bands #) 3.7 1.5-8.1 [facility]wallCziygtfPJIOHDTIRR2801-41-19 21:02:00 Test Item Value Reference Range Interpretation Comments Eosinophils # (test code 0.2 See_Comment [A utomated message] The = Eosinophils #) system whic h generated this result tra nsmitted reference range : <=0.5. The reference r melody was not used to int erpret this result as normal/abnormal . [facility] RockwallQkltuwhGIZWUPHCBD3521-11-87 21:02:00 Test Item Value Reference Range Interpretation Comments Monocytes # (test code 0.6 See_Comment [Aut omated message] The = Monocytes #) system which generated this result tra nsmitted reference range : <=0.8. The reference r melody was not used to int erpret this result as normal/abnormal . [facility] RockwallCazwgkpSDZGTWFCFM9433-84-20 21:02:00 Test Item Value Reference Range Interpretation Comments Lymphocytes # (test code = Lymphocytes 1.9 1.0-5.5 #) [facility]wallNssqgsuGJVYEWLCWU0119-11-73 21:02:00 Test Item Value Reference Range Interpretation Comments Segs (test code = Segs) 56.9 45.0-75.0 [facility] RockwallWiiablfRDIYSMYUAH0696-51-00 21:02:00 Test Item Value Reference Range Interpretation Comments Eosinophils (test code = 2.7 See_Comment [A utomated message] The Eosinophils) system which ge nerated this result tra nsmitted reference range : <=4.0. The reference r melody was not used to int erpret this result as normal/abnormal . [facility] RockwallRfnrndbJQGAQKUPOH4529-49-20 21:02:00 Test Item Value Reference Range Interpretation Comments Basophils (test code = 0.4 See_Comment [Aut omated message] The Basophils) system which ge nerated this result tra nsmitted reference range : <=1.0. The reference r melody was not used to int erpret this result as normal/abnormal . [facility] RockwallMybclpoBJQQPCAZWR9062-12-45 21:02:00 Test Item Value Reference Range Interpretation Comments Monocytes (test code = Monocytes) 9.9 2.0-12.0 [facility] RockwallIuskmrwDMYEIEOCAF8505-34-40 21:02:00 Test Item Value Reference Range Interpretation Comments Lymphocytes (test code = Lymphocytes) 30.1 20.0-40.0 [facility] CenterHeyo [id number] 09:33:00 Test Item Value Reference Range Interpretation Comments Troponin-I (test code no gt See_Comment [Auto mated message] The = Troponin-I) system which g enerated this result transmit marcelle reference range : <=0.40. The reference r melody was not used to interpr et this result as aranza l/abnormal. [facility] CenterHeyo [id number] 06:16:00 Test Item Value Reference Range Interpretation Comments Troponin-I (test code no gt See_Comment [Auto mated message] The = Troponin-I) system which g enerated this result transmit marcelle reference range : <=0.40. The reference r melody was not used to interpr et this result as aranza l/abnormal. [facility] HospitalF[facility] CenterCUWGI7723-52-97 06:16:00 Test Item Value Reference Range Interpretation Comments A/G Ratio (test code = A/G Ratio) 1.1 0.7-1.6 [place] [id number] 06:16:00 Test Item Value Reference Range Interpretation Comments Globulin (test code = Globulin) 3.5 2.0-4.0 [place] [id number] 06:16:00 Test Item Value Reference Range Interpretation Comments Bili Indirect (test 0.5 See_Comment [Automa marcelle message] The code = Bili Indirect) system which generated this result tra nsmitted reference range : <=1.0. The reference r melody was not used to int erpret this result as normal/abnormal . [place] 365615-07-08 06:16:00 Test Item Value Reference Range Interpretation Comments Bili Direct (test code 0.1 See_Comment [Aut omated message] The = Bili Direct) system which generated this result tra nsmitted reference range : <=0.3. The reference r melody was not used to int erpret this result as aranza l/abnormal. [place] 365615-07-08 06:16:00 Test Item Value Reference Range Interpretation Comments ALT (test code = ALT) 25 See_Comment [Auto mated message] The system which ge nerated this result transmit marcelle reference range : <=65. The reference range was not used to interpr et this result as aranza l/abnormal. [facility]2015-07-08 06:16:00 Test Item Value Reference Range Interpretation Comments AST (test code = AST) 21 See_Comment [Auto mated message] The system which ge nerated this result transmit marcelle reference range : <=37. The reference range was not used to interpr et this result as aranza l/abnormal. [facility]2015-07-08 06:16:00 Test Item Value Reference Range Interpretation Comments Albumin Lvl (test code = Albumin Lvl) 3.7 3.5-5.0 [place] 365615-07-08 06:16:00 Test Item Value Reference Range Interpretation Comments Alk Phos (test code = Alk Phos) 119 39-136 [facility]2015-07-08 06:16:00 Test Item Value Reference Range Interpretation Comments Bili Total (test code = Bili Total) 0.6 0.2-1.3 [facility]2015-07-08 06:16:00 Test Item Value Reference Range Interpretation Comments Total Protein (test code = Total 7.2 6.4-8.4 Protein) [facility]2015-07-08 06:16:00 Test Item Value Reference Range Interpretation Comments Lipase Lvl (test code = Lipase Lvl) 221 73-393 [facility]BuoonsmKGTSNEISEMVM4787-06-60 06:16:00 Test Item Value Reference Range Interpretation Comments AGAP (test code = AGAP) 12.6 10.0-20.0 [facility] HospitalAkguanmSQEIKTFMDNQN0586-12-92 06:16:00 Test Item Value Reference Range Interpretation Comments eGFR (test code = eGFR) 78 [facility] HospitalSaergmeBVEMCJYHWHPX7890-47-59 06:16:00 Test Item Value Reference Range Interpretation Comments Calcium Lvl (test code = Calcium Lvl) 9.6 8.5-10.5 [facility] HospitalBjrfoumTVENBKCIOROY1550-90-46 06:16:00 Test Item Value Reference Range Interpretation Comments CO2 (test code = CO2) 29 24-32 [facility] HospitalWbkyiooESQXVRGGKDDX5186-43-76 06:16:00 Test Item Value Reference Range Interpretation Comments Potassium Lvl (test code = Potassium 3.6 3.5-5.1 Lvl) [facility] HospitalBpwmhexHLVEKPIRJFHP9606-24-03 06:16:00 Test Item Value Reference Range Interpretation Comments Chloride Lvl (test code = Chloride Lvl) 103 95-109 [facility] HospitalGkhcqzmSPLTDDFGKRBL0302-28-58 06:16:00 Test Item Value Reference Range Interpretation Comments Sodium Lvl (test code = Sodium Lvl) 141 135-145 [facility] HospitalQoomcogTTJLUUWRMKPO9235-22-22 06:16:00 Test Item Value Reference Range Interpretation Comments Creatinine Lvl (test code = Creatinine 0.8 0.5-1.4 Lvl) [facility] HospitalWyptxiwUGKFRPXOAXTN0498-15-33 06:16:00 Test Item Value Reference Range Interpretation Comments BUN (test code = BUN) 9 7-22 [facility] HospitalUssdfvnLKIRGSORFHZV3421-17-72 06:16:00 Test Item Value Reference Range Interpretation Comments Glucose Lvl (test code = Glucose Lvl) 96 70-99 [facility]wallHbqkaxxNLHWWOSJKN6891-36-17 06:16:00 Test Item Value Reference Range Interpretation Comments Lymphocytes # (test code = Lymphocytes 2.6 1.0-5.5 #) [facility]wallLmfjtmmTJORBEQSUO0506-77-49 06:16:00 Test Item Value Reference Range Interpretation Comments Monocytes # (test code 0.9 See_Comment [Aut omated message] The = Monocytes #) system which generated this result tra nsmitted reference range : <=0.8. The reference r melody was not used to int erpret this result as normal/abnormal . [facility]wallUvuyqgrPXMIJIETIH1751-17-28 06:16:00 Test Item Value Reference Range Interpretation Comments Basophils (test code = 0.7 See_Comment [Aut omated message] The Basophils) system which ge nerated this result tra nsmitted reference range : <=1.0. The reference r melody was not used to int erpret this result as normal/abnormal . [facility]wallCgxsgbpYMFZXQCNSV1249-16-92 06:16:00 Test Item Value Reference Range Interpretation Comments Eosinophils (test code = 1.7 See_Comment [A utomated message] The Eosinophils) system which ge nerated this result tra nsmitted reference range : <=4.0. The reference r melody was not used to int erpret this result as normal/abnormal . [facility]wallClyrvqnSYGLQYGOHE1244-79-91 06:16:00 Test Item Value Reference Range Interpretation Comments Segs-Bands # (test code = Segs-Bands #) 6.7 1.5-8.1 [facility]wallWboiqbjKCBIJDVRGA9134-21-87 06:16:00 Test Item Value Reference Range Interpretation Comments Lymphocytes (test code = Lymphocytes) 25.0 20.0-40.0 [facility] RockwallYnomrilQQVTVFQUXM8295-55-66 06:16:00 Test Item Value Reference Range Interpretation Comments Segs (test code = Segs) 64.3 45.0-75.0 [facility] RockwallWgzdaaaNVJNKPQPIO6035-47-07 06:16:00 Test Item Value Reference Range Interpretation Comments Monocytes (test code = Monocytes) 8.3 2.0-12.0 [facility] RockwallBgulgvqLQQNKRAZZG7914-77-42 06:16:00 Test Item Value Reference Range Interpretation Comments Eosinophils # (test code 0.2 See_Comment [A utomated message] The = Eosinophils #) system whic h generated this result tra nsmitted reference range : <=0.5. The reference r melody was not used to int erpret this result as normal/abnormal . [facility]wallVssdixuCQGTYCABCJ6156-08-27 06:16:00 Test Item Value Reference Range Interpretation Comments Basophils # (test code 0.1 See_Comment [Aut omated message] The = Basophils #) system which generated this result tra nsmitted reference range : <=0.2. The reference r melody was not used to int erpret this result as normal/abnormal . [facility] RockwallZymfionUMWTIRAKTM9764-31-38 06:16:00 Test Item Value Reference Range Interpretation Comments MCV (test code = MCV) 87.7 80.0-98.0 [facility] RockwallZkjidpzSGGNBCQYTQ0866-69-12 06:16:00 Test Item Value Reference Range Interpretation Comments Hct (test code = Hct) 39.7 36.0-48.0 [id number] 06:16:00 Test Item Value Reference Range Interpretation Comments MPV (test code = MPV) 8.0 7.4-10.4 [facility]wa[id number] 06:16:00 Test Item Value Reference Range Interpretation Comments Platelet (test code = Platelet) 216 133-450 [facility]wallHdvauknXTTGYCEOHK9296-68-61 06:16:00 Test Item Value Reference Range Interpretation Comments RDW (test code = RDW) 14.6 11.5-14.5 [facility]wallXbuohhpTZAJXOMEBM2031-35-47 06:16:00 Test Item Value Reference Range Interpretation Comments MCHC (test code = MCHC) 32.4 32.0-36.0 [facility]wallDzgkescEGDBNDSTGS7079-39-12 06:16:00 Test Item Value Reference Range Interpretation Comments MCH (test code = MCH) 28.4 pg 27.0-31.0 [facility]wallGwpkxkfDRTWDBWPJR9520-06-37 06:16:00 Test Item Value Reference Range Interpretation Comments WBC (test code = WBC) 10.5 3.7-10.4 [facility]wa[id number] 06:16:00 Test Item Value Reference Range Interpretation Comments RBC (test code = RBC) 4.53 4.20-5.40 [facility]wallQjhbmzhIFVODHCDCK8603-06-71 06:16:00 Test Item Value Reference Range Interpretation Comments Hgb (test code = Hgb) 12.9 12.0-16.0 [facility]2015-06-30 09:16:00 Test Item Value Reference Range Interpretation Comments Magnesium Lvl (test code = Magnesium 2.0 1.8-2.4 Lvl) [facility]2015-06-30 09:16:00 Test Item Value Reference Range Interpretation Comments Phosphorus (test code = Phosphorus) 3.6 2.5-4.5 [facility]2015-06-30 09:16:00 Test Item Value Reference Range Interpretation Comments eGFR (test code = eGFR) 106 [facility]2015-06-30 09:16:00 Test Item Value Reference Range Interpretation Comments AST (test code = AST) 17 See_Comment [Auto mated message] The system which ge nerated this result transmit marcelle reference range : <=37. The reference range was not used to interpr et this result as aranza l/abnormal. [facility]2015-06-30 09:16:00 Test Item Value Reference Range Interpretation Comments Albumin Lvl (test code = Albumin Lvl) 3.3 3.5-5.0 [facility]2015-06-30 09:16:00 Test Item Value Reference Range Interpretation Comments A/G Ratio (test code = A/G Ratio) 1.1 0.7-1.6 [facility]2015-06-30 09:16:00 Test Item Value Reference Range Interpretation Comments Total Protein (test code = Total 6.3 6.4-8.4 Protein) [facility]2015-06-30 09:16:00 Test Item Value Reference Range Interpretation Comments ALT (test code = ALT) 21 See_Comment [Auto mated message] The system which ge nerated this result transmit marcelle reference range : <=65. The reference range was not used to interpr et this result as aranza l/abnormal. [facility]2015-06-30 09:16:00 Test Item Value Reference Range Interpretation Comments Globulin (test code = Globulin) 3.0 2.0-4.0 [facility]2015-06-30 09:16:00 Test Item Value Reference Range Interpretation Comments Bili Total (test code = Bili Total) 0.5 0.2-1.3 [facility]2015-06-30 09:16:00 Test Item Value Reference Range Interpretation Comments Alk Phos (test code = Alk Phos) 119 39-136 [facility]2015-06-30 09:16:00 Test Item Value Reference Range Interpretation Comments B/C Ratio (test code = B/C Ratio) 11 6-25 [facility]2015-06-30 09:16:00 Test Item Value Reference Range Interpretation Comments Calcium Lvl (test code = Calcium Lvl) 9.1 8.5-10.5 [facility]2015-06-30 09:16:00 Test Item Value Reference Range Interpretation Comments Glucose Lvl (test code = Glucose Lvl) 99 70-99 [facility]2015-06-30 09:16:00 Test Item Value Reference Range Interpretation Comments BUN (test code = BUN) 8 7-22 [facility]2015-06-30 09:16:00 Test Item Value Reference Range Interpretation Comments Sodium Lvl (test code = Sodium Lvl) 140 135-145 [facility]2015-06-30 09:16:00 Test Item Value Reference Range Interpretation Comments Creatinine Lvl (test code = Creatinine 0.7 0.5-1.4 Lvl) [facility]2015-06-30 09:16:00 Test Item Value Reference Range Interpretation Comments AGAP (test code = AGAP) 8.9 10.0-20.0 [facility]2015-06-30 09:16:00 Test Item Value Reference Range Interpretation Comments Chloride Lvl (test code = Chloride Lvl) 107 95-109 [facility]2015-06-30 09:16:00 Test Item Value Reference Range Interpretation Comments CO2 (test code = CO2) 28 24-32 [facility]2015-06-30 09:16:00 Test Item Value Reference Range Interpretation Comments Potassium Lvl (test code = Potassium 3.9 3.5-5.1 Lvl) [facility]wa[id number] 09:16:00 Test Item Value Reference Range Interpretation Comments Platelet (test code = Platelet) 216 133-450 [facility] RockwallCdalsarMJBUQHLGDQ2619-41-24 09:16:00 Test Item Value Reference Range Interpretation Comments MPV (test code = MPV) 8.8 7.4-10.4 [facility]wallOxdipoxYPVQNNHCNO7620-99-03 09:16:00 Test Item Value Reference Range Interpretation Comments RDW (test code = RDW) 14.9 11.5-14.5 [id number] 09:16:00 Test Item Value Reference Range Interpretation Comments WBC (test code = WBC) 5.9 3.7-10.4 [facility]wallYqoqdpxUQLFGYCWUU7278-13-61 09:16:00 Test Item Value Reference Range Interpretation Comments MCV (test code = MCV) 88.4 80.0-98.0 [facility]wallMetiedwFVIMEEZMUV2277-91-70 09:16:00 Test Item Value Reference Range Interpretation Comments Hct (test code = Hct) 37.2 36.0-48.0 [facility]wallBhgqrdnWLGZMCLNFS5241-02-09 09:16:00 Test Item Value Reference Range Interpretation Comments MCH (test code = MCH) 28.6 pg 27.0-31.0 [facility] RockwallGayagznGNSTOYJNUP4577-42-48 09:16:00 Test Item Value Reference Range Interpretation Comments MCHC (test code = MCHC) 32.4 32.0-36.0 [facility]wallKazkwsqEBPGNYWBWW3541-75-06 09:16:00 Test Item Value Reference Range Interpretation Comments RBC (test code = RBC) 4.21 4.20-5.40 [facility]wallLlvkvbjRMRZSCDLCH1454-91-72 09:16:00 Test Item Value Reference Range Interpretation Comments Hgb (test code = Hgb) 12.0 12.0-16.0 [facility]wallJnvvvdeUDIXSHMETR2730-72-54 09:16:00 Test Item Value Reference Range Interpretation Comments Lymphocytes (test code = Lymphocytes) 31.9 20.0-40.0 [facility]wallSvssfjtVMZBHVMYED1655-91-73 09:16:00 Test Item Value Reference Range Interpretation Comments Basophils (test code = 0.8 See_Comment [Aut omated message] The Basophils) system which ge nerated this result tra nsmitted reference range : <=1.0. The reference r melody was not used to int erpret this result as normal/abnormal . [facility] RockwallBcuweudKGNPDJGKND6898-14-83 09:16:00 Test Item Value Reference Range Interpretation Comments Segs-Bands # (test code = Segs-Bands #) 3.1 1.5-8.1 [facility] RockwallJthpjfaGEXONVHKXX5590-46-95 09:16:00 Test Item Value Reference Range Interpretation Comments Monocytes (test code = Monocytes) 11.6 2.0-12.0 [facility]wallPhczlylXCBDTGSFVR0203-72-00 09:16:00 Test Item Value Reference Range Interpretation Comments Eosinophils (test code = 2.9 See_Comment [A utomated message] The Eosinophils) system which ge nerated this result tra nsmitted reference range : <=4.0. The reference r melody was not used to int erpret this result as normal/abnormal . [facility]wallYsjjkvkVDXBVQAQQQ9657-42-75 09:16:00 Test Item Value Reference Range Interpretation Comments Segs (test code = Segs) 52.8 45.0-75.0 [facility] RockwallBsavxycKPGQLEYGLG7196-55-87 09:16:00 Test Item Value Reference Range Interpretation Comments Monocytes # (test code 0.7 See_Comment [Aut omated message] The = Monocytes #) system which generated this result tra nsmitted reference range : <=0.8. The reference r melody was not used to int erpret this result as normal/abnormal . [facility]wallSyyfywvDACZZVEKSU4041-50-84 09:16:00 Test Item Value Reference Range Interpretation Comments Lymphocytes # (test code = Lymphocytes 1.9 1.0-5.5 #) [facility]wallGpcghtlISTHYDFGPP6132-04-00 09:16:00 Test Item Value Reference Range Interpretation Comments Eosinophils # (test code 0.2 See_Comment [A utomated message] The = Eosinophils #) system wh h generated this result tra nsmitted reference range : <=0.5. The reference r melody was not used to int erpret this result as normal/abnormal . [facility] [id number] 04:30:00 Test Item Value Reference Range Interpretation Comments Total CK (test code = Total CK) 74 12-191 [facility] [id number] 04:30:00 Test Item Value Reference Range Interpretation Comments CK MB Index (test 1.2 See_Comment [Automate d message] The code = CK MB Index) system w [facility] generated this result transmit marcelle reference range : <=2.5. The reference range was not used to interpr et this result as aranza l/abnormal. [facility] [employer] [id number] 04:30:00 Test Item Value Reference Range Interpretation Comments Troponin-I (test code no gt See_Comment [Auto mated message] The = Troponin-I) system which g enerated this result transmit marcelle reference range : <=0.40. The reference r melody was not used to interpr et this result as aranza l/abnormal. [facility] [employer] [id number] 04:30:00 Test Item Value Reference Range Interpretation Comments CK MB (test code = CK MB) 0.9 0.5-3.6 [facility] [employer] [id number] 23:29:00 Test Item Value Reference Range Interpretation Comments Troponin-I (test code no gt See_Comment [Auto mated message] The = Troponin-I) system which g enerated this result transmit marcelle reference range : <=0.40. The reference r melody was not used to interpr et this result as aranza l/abnormal. [facility] [employer] [id number] 23:29:00 Test Item Value Reference Range Interpretation Comments CK MB (test code = CK MB) 0.7 0.5-3.6 [facility] [employer] [id number] 23:29:00 Test Item Value Reference Range Interpretation Comments Total CK (test code = Total CK) 68 12-191 [facility] [employer]2015-06-29 23:29:00 Test Item Value Reference Range Interpretation Comments CK MB Index (test 1.0 See_Comment [Automate d message] The code = CK MB Index) system w [employer] generated this result transmit marcelle reference range : <=2.5. The reference range was not used to interpr et this result as aranza l/abnormal. [facility] [employer] [id number] 17:33:00 Test Item Value Reference Range Interpretation Comments CK MB Index (test 0.9 See_Comment [Automate d message] The code = CK MB Index) system w [employer] generated this result transmit marcelle reference range : <=2.5. The reference range was not used to interpr et this result as aranza l/abnormal. [facility] [employer] [id number] 17:33:00 Test Item Value Reference Range Interpretation Comments Troponin-I (test code no gt See_Comment [Auto mated message] The = Troponin-I) system which g enerated this result transmit marcelle reference range : <=0.40. The reference r melody was not used to interpr et this result as aranza l/abnormal. [facility] HospitalChurchkey Can CoCARCompareMyFare [id number] 17:33:00 Test Item Value Reference Range Interpretation Comments CK MB (test code = CK MB) 0.7 0.5-3.6 [facility] HospitalAstroloMe [id number] 17:33:00 Test Item Value Reference Range Interpretation Comments Total CK (test code = Total CK) 76 12-191 [facility] [employer] [id number] 17:33:00 Test Item Value Reference Range Interpretation Comments eGFR (test code = eGFR) 90 [facility] [id number] 17:33:00 Test Item Value Reference Range Interpretation Comments Globulin (test code = Globulin) 3.1 2.0-4.0 [facility] [id number] 17:33:00 Test Item Value Reference Range Interpretation Comments Alk Phos (test code = Alk Phos) 128 39-136 [facility] [id number] 17:33:00 Test Item Value Reference Range Interpretation Comments Bili Total (test code = Bili Total) 0.3 0.2-1.3 [facility] [id number] 17:33:00 Test Item Value Reference Range Interpretation Comments A/G Ratio (test code = A/G Ratio) 1.1 0.7-1.6 [facility] [id number] 17:33:00 Test Item Value Reference Range Interpretation Comments AGAP (test code = AGAP) 7.3 10.0-20.0 [facility] [id number] 17:33:00 Test Item Value Reference Range Interpretation Comments B/C Ratio (test code = B/C Ratio) 12 6-25 [facility] [id number] 17:33:00 Test Item Value Reference Range Interpretation Comments Creatinine Lvl (test code = Creatinine 0.8 0.5-1.4 Lvl) [facility] [id number] 17:33:00 Test Item Value Reference Range Interpretation Comments Sodium Lvl (test code = Sodium Lvl) 140 135-145 [facility]2015-06-29 17:33:00 Test Item Value Reference Range Interpretation Comments Glucose Lvl (test code = Glucose Lvl) 88 70-99 [facility]2015-06-29 17:33:00 Test Item Value Reference Range Interpretation Comments Potassium Lvl (test code = Potassium 3.3 3.5-5.1 Lvl) [facility]2015-06-29 17:33:00 Test Item Value Reference Range Interpretation Comments Chloride Lvl (test code = Chloride Lvl) 106 95-109 [facility]2015-06-29 17:33:00 Test Item Value Reference Range Interpretation Comments BUN (test code = BUN) 10 7-22 [facility]2015-06-29 17:33:00 Test Item Value Reference Range Interpretation Comments AST (test code = AST) 15 See_Comment [Auto mated message] The system which ge nerated this result transmit marcelle reference range : <=37. The reference range was not used to interpr et this result as aranza l/abnormal. [facility]2015-06-29 17:33:00 Test Item Value Reference Range Interpretation Comments ALT (test code = ALT) 22 See_Comment [Auto mated message] The system which ge nerated this result transmit marcelle reference range : <=65. The reference range was not used to interpr et this result as aranza l/abnormal. [facility]2015-06-29 17:33:00 Test Item Value Reference Range Interpretation Comments Calcium Lvl (test code = Calcium Lvl) 8.9 8.5-10.5 [facility]2015-06-29 17:33:00 Test Item Value Reference Range Interpretation Comments CO2 (test code = CO2) 30 24-32 [facility]2015-06-29 17:33:00 Test Item Value Reference Range Interpretation Comments Total Protein (test code = Total 6.6 6.4-8.4 Protein) [facility]2015-06-29 17:33:00 Test Item Value Reference Range Interpretation Comments Albumin Lvl (test code = Albumin Lvl) 3.5 3.5-5.0 [id number] 17:33:00 Test Item Value Reference Range Interpretation Comments Segs (test code = Segs) 55.9 45.0-75.0 [id number] 17:33:00 Test Item Value Reference Range Interpretation Comments Lymphocytes (test code = Lymphocytes) 28.7 20.0-40.0 [facility] Roc[id number] 17:33:00 Test Item Value Reference Range Interpretation Comments Segs-Bands # (test code = Segs-Bands #) 3.7 1.5-8.1 [facility] R[id number] 17:33:00 Test Item Value Reference Range Interpretation Comments Basophils (test code = 0.7 See_Comment [Aut omated message] The Basophils) system which ge nerated this result tra nsmitted reference range : <=1.0. The reference r melody was not used to int erpret this result as normal/abnormal . [place] [id number] 17:33:00 Test Item Value Reference Range Interpretation Comments Lymphocytes # (test code = Lymphocytes 1.9 1.0-5.5 #) [id number] 17:33:00 Test Item Value Reference Range Interpretation Comments Eosinophils (test code = 2.2 See_Comment [A utomated message] The Eosinophils) system which ge nerated this result tra nsmitted reference range : <=4.0. The reference r melody was not used to int erpret this result as normal/abnormal . [facility] R[id number] 17:33:00 Test Item Value Reference Range Interpretation Comments Monocytes (test code = Monocytes) 12.5 2.0-12.0 [facility] R[id number] 17:33:00 Test Item Value Reference Range Interpretation Comments Basophils # (test code 0.0 See_Comment [Aut omated message] The = Basophils #) system which generated this result tra nsmitted reference range : <=0.2. The reference r melody was not used to int erpret this result as normal/abnormal . [facility] Rockwa[id number] 17:33:00 Test Item Value Reference Range Interpretation Comments Eosinophils # (test code 0.1 See_Comment [A utomated message] The = Eosinophils #) system whic h generated this result tra nsmitted reference range : <=0.5. The reference r melody was not used to int erpret this result as normal/abnormal . [facility] Ro[id number] 17:33:00 Test Item Value Reference Range Interpretation Comments Monocytes # (test code 0.8 See_Comment [Aut omated message] The = Monocytes #) system which generated this result tra nsmitted reference range : <=0.8. The reference r melody was not used to int erpret this result as normal/abnormal . [facility] RockwallLrlzhrgIJXNBMPXWW2784-13-16 17:33:00 Test Item Value Reference Range Interpretation Comments MPV (test code = MPV) 8.8 7.4-10.4 [facility] R[id number] 17:33:00 Test Item Value Reference Range Interpretation Comments MCH (test code = MCH) 28.1 pg 27.0-31.0 [facility] R[id number] 17:33:00 Test Item Value Reference Range Interpretation Comments RDW (test code = RDW) 14.8 11.5-14.5 [facility] R[id number] 17:33:00 Test Item Value Reference Range Interpretation Comments MCHC (test code = MCHC) 32.2 32.0-36.0 [id number] 17:33:00 Test Item Value Reference Range Interpretation Comments Platelet (test code = Platelet) 207 133-450 [facility] Roc[id number] 17:33:00 Test Item Value Reference Range Interpretation Comments Hgb (test code = Hgb) 11.4 12.0-16.0 [facility] R[id number] 17:33:00 Test Item Value Reference Range Interpretation Comments RBC (test code = RBC) 4.04 4.20-5.40 [facility] R[id number] 17:33:00 Test Item Value Reference Range Interpretation Comments WBC (test code = WBC) 6.5 3.7-10.4 [facility] R[id number] 17:33:00 Test Item Value Reference Range Interpretation Comments Hct (test code = Hct) 35.3 36.0-48.0 [facility] R[id number] 17:33:00 Test Item Value Reference Range Interpretation Comments MCV (test code = MCV) 87.2 80.0-98.0 [facility] [id number] 09:54:00 Test Item Value Reference Range Interpretation Comments BNP (test code = BNP) 6 [facility] HospitalAriisto[facility] 09:54:00 Test Item Value Reference Range Interpretation Comments Troponin-I (test code no gt See_Comment [Auto mated message] The = Troponin-I) system which g enerated this result transmit marcelle reference range : <=0.40. The reference r melody was not used to interpr et this result as aranza l/abnormal. [facility] [employer] [id number] 09:54:00 Test Item Value Reference Range Interpretation Comments CK MB (test code = CK MB) 1.0 0.5-3.6 [facility] [place]2015-06-22 09:54:00 Test Item Value Reference Range Interpretation Comments Total CK (test code = Total CK) 77 12-191 [facility] [employer] [id number] 09:54:00 Test Item Value Reference Range Interpretation Comments Magnesium Lvl (test code = Magnesium 1.8 1.8-2.4 Lvl) [facility] [employer] [id number] 09:54:00 Test Item Value Reference Range Interpretation Comments eGFR (test code = eGFR) 111 [facility] [place]2015-06-22 09:54:00 Test Item Value Reference Range Interpretation Comments Chloride Lvl (test code = Chloride Lvl) 111 95-109 [facility] [employer] [id number] 09:54:00 Test Item Value Reference Range Interpretation Comments Potassium Lvl (test code = Potassium 3.8 3.5-5.1 Lvl) [facility] [employer] [id number] 09:54:00 Test Item Value Reference Range Interpretation Comments Sodium Lvl (test code = Sodium Lvl) 144 135-145 [facility] [place]2015-06-22 09:54:00 Test Item Value Reference Range Interpretation Comments Calcium Lvl (test code = Calcium Lvl) 8.6 8.5-10.5 [facility] [place]2015-06-22 09:54:00 Test Item Value Reference Range Interpretation Comments AGAP (test code = AGAP) 11.8 10.0-20.0 [facility] [place]2015-06-22 09:54:00 Test Item Value Reference Range Interpretation Comments CO2 (test code = CO2) 25 24-32 [facility] [id number] 09:54:00 Test Item Value Reference Range Interpretation Comments Creatinine Lvl (test code = Creatinine 0.6 0.5-1.4 Lvl) [facility] [id number] 09:54:00 Test Item Value Reference Range Interpretation Comments BUN (test code = BUN) 6 7-22 [facility] [id number] 09:54:00 Test Item Value Reference Range Interpretation Comments Glucose Lvl (test code = Glucose Lvl) 72 70-99 [facility]MbonqtvPUJMGFWJXF2608-98-95 09:54:00 Test Item Value Reference Range Interpretation Comments Hgb (test code = Hgb) 11.5 12.0-16.0 [facility] [id number] 09:54:00 Test Item Value Reference Range Interpretation Comments HDL (test code = HDL) 51 [facility] HospitalArhfnykFJWWYJ9577-86-80 09:54:00 Test Item Value Reference Range Interpretation Comments VLDL (test code = VLDL) 17 [facility] HospitalNpelehjRHRWFJ6633-33-54 09:54:00 Test Item Value Reference Range Interpretation Comments LDL (Calculated) (test code = LDL 96 (Calculated)) [facility] [id number] 09:54:00 Test Item Value Reference Range Interpretation Comments Chol (test code = Chol) 164 [facility] CenterRubqkvcXWIPAA4972-96-29 09:54:00 Test Item Value Reference Range Interpretation Comments Trig (test code = Trig) 84 [facility] HospitalGxxsxigVFMTVV5933-31-45 09:54:00 Test Item Value Reference Range Interpretation Comments CHD Risk (test code = CHD Risk) 3.22 3.90-5.[address] [facility] [id number] 09:54:00 Test Item Value Reference Range Interpretation Comments Hgb A1C (test code = Hgb A1C) 5.8 [facility] CenterCARAC [id number] 04:20:00 Test Item Value Reference Range Interpretation Comments Troponin-I (test code no gt See_Comment [Auto mated message] The = Troponin-I) system which g enerated this result transmit marcelle reference range : <=0.40. The reference r melody was not used to interpr et this result as aranza l/abnormal. [facility] CenterHeyoAC [id number] 04:20:00 Test Item Value Reference Range Interpretation Comments Total CK (test code = Total CK) 92 12-191 [facility] [employer]AC [id number] 04:20:00 Test Item Value Reference Range Interpretation Comments CK MB (test code = CK MB) 1.2 0.5-3.6 [facility] SumZeroannHeyoAC [id number] 22:59:00 Test Item Value Reference Range Interpretation Comments CK MB (test code = CK MB) 1.2 0.5-3.6 [facility] [employer] [id number] 22:59:00 Test Item Value Reference Range Interpretation Comments CK MB Index (test 1.3 See_Comment [Automate d message] The code = CK MB Index) system w [facility] generated this result transmit marcelle reference range : <=2.5. The reference range was not used to interpr et this result as aranza l/abnormal. [facility] [employer] [id number] 22:59:00 Test Item Value Reference Range Interpretation Comments Total CK (test code = Total CK) 93 12-191 [facility] HospitalFuhuajie Industrial ([employer]) [id number] 22:59:00 Test Item Value Reference Range Interpretation Comments Troponin-I (test code no gt See_Comment [Auto mated message] The = Troponin-I) system which g enerated this result transmit marcelle reference range : <=0.40. The reference r melody was not used to interpr et this result as aranza l/abnormal. [facility] [employer]2015-06-21 22:59:00 Test Item Value Reference Range Interpretation Comments BNP (test code = BNP) 4 [facility] [employer]i Link [id number] 22:59:00 Test Item Value Reference Range Interpretation Comments Lipase Lvl (test code = Lipase Lvl) 307 73-393 [facility] [employer] [id number] 22:59:00 Test Item Value Reference Range Interpretation Comments A/G Ratio (test code = A/G Ratio) 1.0 0.7-1.6 [facility] [employer] [id number] 22:59:00 Test Item Value Reference Range Interpretation Comments Globulin (test code = Globulin) 3.6 2.0-4.0 [facility] [id number] 22:59:00 Test Item Value Reference Range Interpretation Comments Bili Indirect (test 0.4 See_Comment [Automa marcelle message] The code = Bili Indirect) system which generated this result tra nsmitted reference range : <=1.0. The reference r melody was not used to int erpret this result as normal/abnormal . [facility]2015-06-21 22:59:00 Test Item Value Reference Range Interpretation Comments Bili Direct (test code 0.1 See_Comment [Aut omated message] The = Bili Direct) system which generated this result tra nsmitted reference range : <=0.3. The reference r melody was not used to int erpret this result as aranza l/abnormal. [place] [id number] 22:59:00 Test Item Value Reference Range Interpretation Comments Bili Total (test code = Bili Total) 0.5 0.2-1.3 [place] [id number] 22:59:00 Test Item Value Reference Range Interpretation Comments Total Protein (test code = Total 7.3 6.4-8.4 Protein) [place] 365615-06-21 22:59:00 Test Item Value Reference Range Interpretation Comments Alk Phos (test code = Alk Phos) 150 39-136 [facility]2015-06-21 22:59:00 Test Item Value Reference Range Interpretation Comments AST (test code = AST) 15 See_Comment [Auto mated message] The system which ge nerated this result transmit marcelle reference range : <=37. The reference range was not used to interpr et this result as aranza l/abnormal. [facility]2015-06-21 22:59:00 Test Item Value Reference Range Interpretation Comments ALT (test code = ALT) 21 See_Comment [Auto mated message] The system which ge nerated this result transmit marcelle reference range : <=65. The reference range was not used to interpr et this result as aranza l/abnormal. [place] 365615-06-21 22:59:00 Test Item Value Reference Range Interpretation Comments Albumin Lvl (test code = Albumin Lvl) 3.7 3.5-5.0 [facility]2015-06-21 22:59:00 Test Item Value Reference Range Interpretation Comments Phosphorus (test code = Phosphorus) 3.1 2.5-4.5 [facility]2015-06-21 22:59:00 Test Item Value Reference Range Interpretation Comments Magnesium Lvl (test code = Magnesium 1.9 1.8-2.4 Lvl) [facility]2015-06-21 22:59:00 Test Item Value Reference Range Interpretation Comments eGFR (test code = eGFR) 90 [facility]2015-06-21 22:59:00 Test Item Value Reference Range Interpretation Comments Calcium Lvl (test code = Calcium Lvl) 9.0 8.5-10.5 [facility]2015-06-21 22:59:00 Test Item Value Reference Range Interpretation Comments CO2 (test code = CO2) 28 24-32 [facility]2015-06-21 22:59:00 Test Item Value Reference Range Interpretation Comments Chloride Lvl (test code = Chloride Lvl) 107 95-109 [facility]2015-06-21 22:59:00 Test Item Value Reference Range Interpretation Comments Creatinine Lvl (test code = Creatinine 0.8 0.5-1.4 Lvl) [facility]2015-06-21 22:59:00 Test Item Value Reference Range Interpretation Comments BUN (test code = BUN) 11 7-22 [facility]2015-06-21 22:59:00 Test Item Value Reference Range Interpretation Comments Potassium Lvl (test code = Potassium 3.5 3.5-5.1 Lvl) [facility]2015-06-21 22:59:00 Test Item Value Reference Range Interpretation Comments Sodium Lvl (test code = Sodium Lvl) 139 135-145 [facility]2015-06-21 22:59:00 Test Item Value Reference Range Interpretation Comments Glucose Lvl (test code = Glucose Lvl) 76 70-99 [facility]2015-06-21 22:59:00 Test Item Value Reference Range Interpretation Comments AGAP (test code = AGAP) 7.5 10.0-20.0 [id number] 22:59:00 Test Item Value Reference Range Interpretation Comments Eosinophils (test code = 3.3 See_Comment [A utomated message] The Eosinophils) system which ge nerated this result tra nsmitted reference range : <=4.0. The reference r melody was not used to int erpret this result as normal/abnormal . [facility] RockwallYsrpqpdLSFPEKSJTE6723-11-04 22:59:00 Test Item Value Reference Range Interpretation Comments Monocytes (test code = Monocytes) 9.1 2.0-12.0 [facility] RockwallNmwgltuLIHZIKAQSP6414-48-70 22:59:00 Test Item Value Reference Range Interpretation Comments Lymphocytes (test code = Lymphocytes) 28.9 20.0-40.0 [facility] RockwallYciqckxCHRYDSJNMG5447-98-13 22:59:00 Test Item Value Reference Range Interpretation Comments Segs (test code = Segs) 58.3 45.0-75.0 [facility] RockwallVnjkgzxHNGAKXBAKZ4845-47-07 22:59:00 Test Item Value Reference Range Interpretation Comments Segs-Bands # (test code = Segs-Bands #) 3.8 1.5-8.1 [facility] RockwallBbnaiwzAAGZTMCHZC8509-16-81 22:59:00 Test Item Value Reference Range Interpretation Comments Basophils (test code = 0.4 See_Comment [Aut omated message] The Basophils) system which ge nerated this result tra nsmitted reference range : <=1.0. The reference r melody was not used to int erpret this result as normal/abnormal . [facility] RockwallFivacgrWVCEJGCDQG8651-75-16 22:59:00 Test Item Value Reference Range Interpretation Comments Monocytes # (test code 0.6 See_Comment [Aut omated message] The = Monocytes #) system which generated this result tra nsmitted reference range : <=0.8. The reference r melody was not used to int erpret this result as normal/abnormal . [facility] RockwallMdyyqucRSUYPYQHCF5523-00-89 22:59:00 Test Item Value Reference Range Interpretation Comments Lymphocytes # (test code = Lymphocytes 1.9 1.0-5.5 #) [facility] R[id number] 22:59:00 Test Item Value Reference Range Interpretation Comments Eosinophils # (test code 0.2 See_Comment [A utomated message] The = Eosinophils #) system [facility] generated this result tra nsmitted reference range : <=0.5. The reference r melody was not used to int erpret this result as normal/abnormal . [facility] RockwallOthlzoiCCVKRWVQUW3767-25-77 22:59:00 Test Item Value Reference Range Interpretation Comments Basophils # (test code 0.0 See_Comment [Aut omated message] The = Basophils #) system which generated this result tra nsmitted reference range : <=0.2. The reference r melody was not used to int erpret this result as normal/abnormal . [facility] RockwallAnxcghxXUKTIDFNUA0832-46-94 22:59:00 Test Item Value Reference Range Interpretation Comments PTT (test code = PTT) 36.0 s 22.9-35.8 [facility] RockwallIotkijpCJGZWZDXMY1831-95-04 22:59:00 Test Item Value Reference Range Interpretation Comments PT (test code = PT) 12.9 s 12.0-14.7 [facility] RockwallAksfvyvYIYRLBVMGT5395-88-33 22:59:00 Test Item Value Reference Range Interpretation Comments INR (test code = INR) 0.97 0.85-1.17 [facility] RockwallLxrhwacWCTWATLGZF6553-74-82 22:59:00 Test Item Value Reference Range Interpretation Comments Platelet (test code = Platelet) 225 133-450 [facility] RockwallWvdbvdaAKLZFWBYSY5315-49-33 22:59:00 Test Item Value Reference Range Interpretation Comments RDW (test code = RDW) 14.7 11.5-14.5 [facility] RockwallIwcschwERLOLIGCOU4665-87-87 22:59:00 Test Item Value Reference Range Interpretation Comments MPV (test code = MPV) 8.7 7.4-10.4 [facility] RockwallZthpkklQHJUZQJFKD4451-59-54 22:59:00 Test Item Value Reference Range Interpretation Comments MCHC (test code = MCHC) 32.6 32.0-36.0 [facility] RockwallPzglwvnRGDHLSHHEL9878-08-45 22:59:00 Test Item Value Reference Range Interpretation Comments Hct (test code = Hct) 39.5 36.0-48.0 [facility] RockwallLgoewuiDVFTCENHOA1603-47-86 22:59:00 Test Item Value Reference Range Interpretation Comments MCV (test code = MCV) 87.3 80.0-98.0 [facility] RockwallNdeackoPJUHOQRCDG0534-65-12 22:59:00 Test Item Value Reference Range Interpretation Comments MCH (test code = MCH) 28.4 pg 27.0-31.0 [facility] RockwallPpwbedfQDZQKGCCCD6646-70-56 22:59:00 Test Item Value Reference Range Interpretation Comments RBC (test code = RBC) 4.52 4.20-5.40 [facility] HospitalPtsdyxuGFYHPAMLUJ8411-13-32 22:59:00 Test Item Value Reference Range Interpretation Comments Hgb (test code = Hgb) 12.9 12.0-16.0 [facility] HospitalMkbgaalZPEWZBEQHL7424-52-46 22:59:00 Test Item Value Reference Range Interpretation Comments WBC (test code = WBC) 6.5 3.7-10.4 [facility] HospitalTrauknbKDEPEFJFC2309-08-03 22:59:00 Test Item Value Reference Range Interpretation Comments Myoglobin (test code = Myoglobin) 46 25-72 [facility] HospitalannCARDIAC [id number] 21:17:00 Test Item Value Reference Range Interpretation Comments BNP (test code = BNP) 15 [facility] CenterCARAC [id number] 21:17:00 Test Item Value Reference Range Interpretation Comments Troponin-I (test code no gt See_Comment [Auto mated message] The = Troponin-I) system which g enerated this result transmit marcelle reference range : <=0.40. The reference r melody was not used to interpr et this result as aranza l/abnormal. [facility] HospitalChurchkey Can CoCARWalkaboutAC [id number] 21:17:00 Test Item Value Reference Range Interpretation Comments Total CK (test code = Total CK) 80 12-191 [facility] CenterThinknumAC [id number] 21:17:00 Test Item Value Reference Range Interpretation Comments CK MB (test code = CK MB) no gt 0.5-3.6 [facility] [id number] 21:17:00 Test Item Value Reference Range Interpretation Comments CK MB Index (test no gt See_Comment [Automate d message] The code = CK MB Index) system w [facility] generated this result transmit marcelle reference range : <=2.5. The reference range was not used to interpr et this result as aarnza l/abnormal. [facility] SumZeroannCHEM [id number] 21:17:00 Test Item Value Reference Range Interpretation Comments eGFR (test code = eGFR) 112 [facility] HospitalChurchkey Can CoCHEM [id number] 21:17:00 Test Item Value Reference Range Interpretation Comments Globulin (test code = Globulin) 3.6 2.0-4.0 [facility] HospitalChurchkey Can CoECU HEALTH CHOWAN [id number] 21:17:00 Test Item Value Reference Range Interpretation Comments B/C Ratio (test code = B/C Ratio) 17 6-25 [facility]2014-04-26 21:17:00 Test Item Value Reference Range Interpretation Comments A/G Ratio (test code = A/G Ratio) 1.1 0.7-1.6 [place] 365614-04-26 21:17:00 Test Item Value Reference Range Interpretation Comments Glucose Lvl (test code = Glucose Lvl) 101 70-99 [place] 365614-04-26 21:17:00 Test Item Value Reference Range Interpretation Comments ALT (test code = ALT) 34 See_Comment [Auto mated message] The system which ge nerated this result transmit marcelle reference range : <=65. The reference range was not used to interpr et this result as aranza l/abnormal. [facility]2014-04-26 21:17:00 Test Item Value Reference Range Interpretation Comments Albumin Lvl (test code = Albumin Lvl) 3.9 3.5-5.0 [facility]2014-04-26 21:17:00 Test Item Value Reference Range Interpretation Comments Alk Phos (test code = Alk Phos) 89 39-136 [facility]2014-04-26 21:17:00 Test Item Value Reference Range Interpretation Comments AST (test code = AST) 22 See_Comment [Auto mated message] The system which ge nerated this result transmit marcelle reference range : <=37. The reference range was not used to interpr et this result as aranza l/abnormal. [facility]2014-04-26 21:17:00 Test Item Value Reference Range Interpretation Comments Bili Total (test code = Bili Total) 0.6 0.2-1.3 [place] 365614-04-26 21:17:00 Test Item Value Reference Range Interpretation Comments AGAP (test code = AGAP) 5.5 10.0-20.0 [facility]2014-04-26 21:17:00 Test Item Value Reference Range Interpretation Comments Creatinine Lvl (test code = Creatinine 0.6 0.5-1.4 Lvl) [facility]2014-04-26 21:17:00 Test Item Value Reference Range Interpretation Comments BUN (test code = BUN) 10 7-22 [facility]2014-04-26 21:17:00 Test Item Value Reference Range Interpretation Comments Potassium Lvl (test code = Potassium 3.5 3.5-5.1 Lvl) [facility] HospitalannTHE [facility] [id number] 21:17:00 Test Item Value Reference Range Interpretation Comments Sodium Lvl (test code = Sodium Lvl) 140 135-145 [facility]2014-04-26 21:17:00 Test Item Value Reference Range Interpretation Comments Chloride Lvl (test code = Chloride Lvl) 109 95-109 [facility]2014-04-26 21:17:00 Test Item Value Reference Range Interpretation Comments CO2 (test code = CO2) 29 24-32 [facility]2014-04-26 21:17:00 Test Item Value Reference Range Interpretation Comments Total Protein (test code = Total 7.5 6.4-8.4 Protein) [facility]2014-04-26 21:17:00 Test Item Value Reference Range Interpretation Comments Calcium Lvl (test code = Calcium Lvl) 9.2 8.5-10.5 [facility] CenterDRUG [id number] 21:17:00 Test Item Value Reference Range Interpretation Comments U Opiate Scr (test Negative *NA*(12/22/13 code = U Opiate Scr) 4:17 PM) [facility] CenterDR[facility] [id number] 21:17:00 Test Item Value Reference Range Interpretation Comments U Phencyc Scr (test Negative *NA*(12/22/13 code = U Phencyc Scr) 4:17 PM) [facility] HospitalannDRUG [id number] 21:17:00 Test Item Value Reference Range Interpretation Comments UDS Note (test code = See Note 4*NA*(12/22/13 UDS Note) 4:17 PM) [facility] HospitalannDRUG [id number] 21:17:00 Test Item Value Reference Range Interpretation Comments U Benzodia Scr (test Negative *NA*(12/22/13 code = U Benzodia Scr) 4:17 PM) [facility] HospitalannDRUG [id number] 21:17:00 Test Item Value Reference Range Interpretation Comments U Keyla Scr (test code Negative *NA*(12/22/13 = U Keyla Scr) 4:17 PM) [facility] CenterDR[facility] [id number] 21:17:00 Test Item Value Reference Range Interpretation Comments U Amph Scr (test code Negative *NA*(12/22/13 = U Amph Scr) 4:17 PM) [facility] CenterDR[facility] [id number] 21:17:00 Test Item Value Reference Range Interpretation Comments U Cannab Scr (test Negative *NA*(12/22/13 code = U Cannab Scr) 4:17 PM) [facility] CenterDR[facility] [id number] 21:17:00 Test Item Value Reference Range Interpretation Comments U Cocaine Scr (test Negative *NA*(12/22/13 code = U Cocaine Scr) 4:17 PM) [facility]wallSxoxlqrGCQXNYEGWW4176-26-60 21:17:00 Test Item Value Reference Range Interpretation Comments PTT (test code = PTT) 35.2 s 22.9-35.8 [facility] RockwallLjmbksmOZCPOPLPHA4335-63-62 21:17:00 Test Item Value Reference Range Interpretation Comments PT (test code = PT) 12.2 s 12.0-14.7 [facility] RockwallUcodbxtKVYCYLDPFM7104-45-15 21:17:00 Test Item Value Reference Range Interpretation Comments INR (test code = INR) 0.91 0.85-1.17 [facility] RockwallP[id number] 21:17:00 Test Item Value Reference Range Interpretation Comments MPV (test code = MPV) 8.4 7.4-10.4 [facility] RockwallMpzdbpyHRBDTFVGYO3459-75-64 21:17:00 Test Item Value Reference Range Interpretation Comments MCH (test code = MCH) 29.2 pg 27.0-31.0 [facility] RockwallCcjpkjbUMBHACJAGU0845-15-07 21:17:00 Test Item Value Reference Range Interpretation Comments MCHC (test code = MCHC) 33.4 32.0-36.0 [facility]XwnkyyeXCBKENBCMR0194-52-88 21:17:00 Test Item Value Reference Range Interpretation Comments RDW (test code = RDW) 14.5 11.5-14.5 [facility] RockwallFqsopxuNRJHIIEESQ4769-99-03 21:17:00 Test Item Value Reference Range Interpretation Comments Platelet (test code = Platelet) 219 133-450 [facility] HealthcareZpqakvcTNRXTCESVC9575-03-09 21:17:00 Test Item Value Reference Range Interpretation Comments Hct (test code = Hct) 41.6 36.0-48.0 [facility] RockwallSkjktruBAYYOIXEDA1102-01-74 21:17:00 Test Item Value Reference Range Interpretation Comments MCV (test code = MCV) 87.5 81.0-99.0 [facility] RockwallLjrtxtaACXGABIHSU6490-06-26 21:17:00 Test Item Value Reference Range Interpretation Comments RBC (test code = RBC) 4.76 4.20-5.40 [facility] RockwallKraintqSLZIGAMIZG5258-76-67 21:17:00 Test Item Value Reference Range Interpretation Comments Hgb (test code = Hgb) 13.9 12.0-16.0 [facility] RockwallHhzfgnlNZGNAOSRLY3976-08-25 21:17:00 Test Item Value Reference Range Interpretation Comments WBC (test code = WBC) 8.5 3.7-10.4 [facility] RockwallBipoxisRPVGEKRERU7050-35-71 21:17:00 Test Item Value Reference Range Interpretation Comments Eosinophils # (test code 0.2 See_Comment [A utomated message] The = Eosinophils #) system whic h generated this result tra nsmitted reference range : <=0.5. The reference r melody was not used to int erpret this result as normal/abnormal . [facility] RockwallOgwcmukQASCSVDQKO3925-35-10 21:17:00 Test Item Value Reference Range Interpretation Comments Basophils # (test code 0.0 See_Comment [Aut omated message] The = Basophils #) system which generated this result tra nsmitted reference range : <=0.2. The reference r melody was not used to int erpret this result as normal/abnormal . [facility] RockwallFvaxefkHIVFEYFIXA8911-90-24 21:17:00 Test Item Value Reference Range Interpretation Comments Segs (test code = Segs) 66.1 45.0-75.0 [facility] RockwallNxrxptkRXIYOVOPZU1917-79-99 21:17:00 Test Item Value Reference Range Interpretation Comments Monocytes (test code = Monocytes) 6.1 2.0-12.0 [facility] RockwallIhlbheqDQAYZOWGLP1003-34-81 21:17:00 Test Item Value Reference Range Interpretation Comments Lymphocytes (test code = Lymphocytes) 25.0 20.0-40.0 [facility] RockwallDvhjwhwMVZRKPMSOK2623-14-32 21:17:00 Test Item Value Reference Range Interpretation Comments Eosinophils (test code = 2.4 See_Comment [A utomated message] The Eosinophils) system which ge nerated this result tra nsmitted reference range : <=4.0. The reference r melody was not used to int erpret this result as normal/abnormal . [facility] RockwallIeswwtvNMPZLGOJVR5304-97-69 21:17:00 Test Item Value Reference Range Interpretation Comments Basophils (test code = 0.4 See_Comment [Aut omated message] The Basophils) system which ge nerated this result tra nsmitted reference range : <=1.0. The reference r melody was not used to int erpret this result as normal/abnormal . [facility] R[id number] 21:17:00 Test Item Value Reference Range Interpretation Comments Lymphocytes # (test code = Lymphocytes 2.1 1.0-5.5 #) [facility] Rockwa[id number] 21:17:00 Test Item Value Reference Range Interpretation Comments Monocytes # (test code 0.5 See_Comment [Aut omated message] The = Monocytes #) system which generated this result tra nsmitted reference range : <=0.8. The reference r melody was not used to int erpret this result as normal/abnormal . [facility] RockwallCpsogpoNOLZZCMKNE7825-79-86 21:17:00 Test Item Value Reference Range Interpretation Comments Segs-Bands # (test code = Segs-Bands #) 5.6 1.5-8.1 [facility] AND [id number] 21:17:00 Test Item Value Reference Range Interpretation Comments UA WBC (test code = UA WBC) 3-5 /HPF [facility] AND [id number] 21:17:00 Test Item Value Reference Range Interpretation Comments UA Sq Epi (test code = UA Sq Occasional /LPF Epi) [facility] [facility] AND [id number] 21:17:00 Test Item Value Reference Range Interpretation Comments UA Trichomonas (test code = UA Rare /HPF Trichomonas) [facility] AND [id number] 21:17:00 Test Item Value Reference Range Interpretation Comments UA Bacteria (test code = UA Few /HPF Bacteria) [facility] AND [id number] 21:17:00 Test Item Value Reference Range Interpretation Comments UA Blood (test code = Trace *ABN*(12/22/13 UA Blood) 4:17 PM) [facility] [id number] 21:17:00 Test Item Value Reference Range Interpretation Comments UA Bili (test code = Negative *NA*(12/22/13 UA Bili) 4:17 PM) [facility] [id number] 21:17:00 Test Item Value Reference Range Interpretation Comments UA Urobilinogen (test code = UA 0.2 0.1-1.0 Urobilinogen) [facility] AND [id number] 21:17:00 Test Item Value Reference Range Interpretation Comments UA Leuk Est (test code Small *ABN*(12/22/13 = UA Leuk Est) 4:17 PM) [facility] AND [id number] 21:17:00 Test Item Value Reference Range Interpretation Comments UA Ketones (test code Negative *NA*(12/22/13 = UA Ketones) 4:17 PM) [facility] AND [id number] 21:17:00 Test Item Value Reference Range Interpretation Comments UA Glucose (test code Negative (12/22/13 4:17 = UA Glucose) PM) [facility] AND [id number] 21:17:00 Test Item Value Reference Range Interpretation Comments UA Turbidity (test code = Clear (12/22/13 4:17 UA Turbidity) PM) [facility] AND [id number] 21:17:00 Test Item Value Reference Range Interpretation Comments UA Color (test code = Yellow *NA*(12/22/13 UA Color) 4:17 PM) [facility] AND [id number] 21:17:00 Test Item Value Reference Range Interpretation Comments UA pH (test code = UA pH) 6.0 1 5.0-8.0 [facility] AND [id number] 21:17:00 Test Item Value Reference Range Interpretation Comments UA Spec Grav (test code = UA Spec 1.015 1 Grav) [facility] AND [id number] 21:17:00 Test Item Value Reference Range Interpretation Comments UA Protein (test code Negative (12/22/13 4:17 = UA Protein) PM) [facility] AND [id number] 21:17:00 Test Item Value Reference Range Interpretation Comments UA Nitrite (test code Negative (12/22/13 4:17 = UA Nitrite) PM) [facility]2014-04-21 15:55:31 Test Item Value Reference Range Interpretation Comments Phosphorus (test code = Phosphorus) 2.7 2.5-4.5 [facility]2014-04-21 15:55:31 Test Item Value Reference Range Interpretation Comments Magnesium Lvl (test code = Magnesium 2.2 1.8-2.4 Lvl) [facility] 15:55:31 Test Item Value Reference Range Interpretation Comments AGAP (test code = AGAP) 10.5 10.0-20.0 [facility]QjenornOZMNOQYBMAQW0424-94-89 15:55:31 Test Item Value Reference Range Interpretation Comments eGFR (test code = eGFR) 91 [facility]WcmytdaDEKHCFCBSKZB3606-01-69 15:55:31 Test Item Value Reference Range Interpretation Comments BUN (test code = BUN) 10 7-22 [facility] HospitalQolxleoPVYGUKYIDEUA2226-36-58 15:55:31 Test Item Value Reference Range Interpretation Comments Creatinine Lvl (test code = Creatinine 0.8 0.5-1.4 Lvl) [id number] 15:55:31 Test Item Value Reference Range Interpretation Comments Sodium Lvl (test code = Sodium Lvl) 142 135-145 [facility]VxzfasuDYFMNWPBFRJS6015-75-44 15:55:31 Test Item Value Reference Range Interpretation Comments Glucose Lvl (test code = Glucose Lvl) 87 70-99 [facility] HospitalMhaayomIJTRNQJWEEZJ6694-76-00 15:55:31 Test Item Value Reference Range Interpretation Comments CO2 (test code = CO2) 30 24-32 [facility] HospitalSmpwbrpJYHMETRWTCFS1034-40-55 15:55:31 Test Item Value Reference Range Interpretation Comments Potassium Lvl (test code = Potassium 4.5 3.5-5.1 Lvl) [facility] HospitalQkicuxsIRPUAVDQMVNV8912-20-84 15:55:31 Test Item Value Reference Range Interpretation Comments Chloride Lvl (test code = Chloride Lvl) 106 95-109 [facility] HospitalVaunanvNSTIIDXZNMKY9719-52-05 15:55:31 Test Item Value Reference Range Interpretation Comments Calcium Lvl (test code = Calcium Lvl) 8.6 8.5-10.5 [facility]ipuwwoFXKZXKNEML2517-69-09 15:55:31 Test Item Value Reference Range Interpretation Comments INR (test code = INR) 0.97 0.85-1.17 [facility]SlyrrmcDPLJKTKTPJ6495-95-45 15:55:31 Test Item Value Reference Range Interpretation Comments PTT (test code = PTT) 32.4 s 22.9-35.8 [facility]wallYvxhpakVGOJZXTMFF6995-83-68 15:55:31 Test Item Value Reference Range Interpretation Comments PT (test code = PT) 12.8 s 12.0-14.7 [facility]wallZfrozmtJUOJGYDYUR3205-58-99 15:55:31 Test Item Value Reference Range Interpretation Comments Hgb (test code = Hgb) 13.7 12.0-16.0 [facility]wallHytfmcuRVRXHWCIXT5656-49-11 15:55:31 Test Item Value Reference Range Interpretation Comments RBC (test code = RBC) 4.88 4.20-5.40 [facility]wallDokfxztNOYGLKJFIF9488-24-41 15:55:31 Test Item Value Reference Range Interpretation Comments MCH (test code = MCH) 28.1 pg 27.0-31.0 [facility] RockwallNtuocisXCBPABMVPF2173-88-10 15:55:31 Test Item Value Reference Range Interpretation Comments Hct (test code = Hct) 42.1 36.0-48.0 [facility]wallNgowfzdKIOUPMSDZG0382-97-69 15:55:31 Test Item Value Reference Range Interpretation Comments MCV (test code = MCV) 86.4 81.0-99.0 [facility]wallKpiatquZYFZLANSHD5888-80-76 15:55:31 Test Item Value Reference Range Interpretation Comments RDW (test code = RDW) 14.3 11.5-14.5 [facility]wallKbyafgeXUCSXKSILB2991-62-99 15:55:31 Test Item Value Reference Range Interpretation Comments MCHC (test code = MCHC) 32.5 32.0-36.0 [facility] RockwallLcvcuaaEGFUKAPHHQ0764-75-60 15:55:31 Test Item Value Reference Range Interpretation Comments MPV (test code = MPV) 8.4 7.4-10.4 [facility] RockwallSosgufnVAOOUXOUOG9374-29-23 15:55:31 Test Item Value Reference Range Interpretation Comments Platelet (test code = Platelet) 197 133-450 [facility] RockwallVzfjzsjCTXDOYTAIH7638-79-71 15:55:31 Test Item Value Reference Range Interpretation Comments WBC (test code = WBC) 7.2 3.7-10.4 [facility]wa[id number] 15:55:31 Test Item Value Reference Range Interpretation Comments Monocytes (test code = Monocytes) 10.7 2.0-12.0 [facility] RockwallQhgvwdfVYGVQEGFIZ3276-64-99 15:55:31 Test Item Value Reference Range Interpretation Comments Lymphocytes (test code = Lymphocytes) 27.2 20.0-40.0 [facility] RockwallOpufxpnNJBAOJEHKJ8837-68-33 15:55:31 Test Item Value Reference Range Interpretation Comments Lymphocytes # (test code = Lymphocytes 1.9 1.0-5.5 #) [facility] RockwallDtsmuvcWJBQREOIEW5499-58-10 15:55:31 Test Item Value Reference Range Interpretation Comments Eosinophils (test code = 3.2 See_Comment [A utomated message] The Eosinophils) system which ge nerated this result tra nsmitted reference range : <=4.0. The reference r melody was not used to int erpret this result as normal/abnormal . [facility] RockwallQzebaunHOILTVXPIM8769-35-46 15:55:31 Test Item Value Reference Range Interpretation Comments Basophils (test code = 0.6 See_Comment [Aut omated message] The Basophils) system which ge nerated this result tra nsmitted reference range : <=1.0. The reference r melody was not used to int erpret this result as normal/abnormal . [facility] RockwallUipewoyHXEEVWAICR6197-19-40 15:55:31 Test Item Value Reference Range Interpretation Comments Segs-Bands # (test code = Segs-Bands #) 4.2 1.5-8.1 [facility] RockwallQrrxaorEKRLPSXULC6452-73-87 15:55:31 Test Item Value Reference Range Interpretation Comments Eosinophils # (test code 0.2 See_Comment [A utomated message] The = Eosinophils #) system whic h generated this result tra nsmitted reference range : <=0.5. The reference r melody was not used to int erpret this result as normal/abnormal . [facility] RockwallYshqttpJZSQAWKDFO4326-44-63 15:55:31 Test Item Value Reference Range Interpretation Comments Monocytes # (test code 0.8 See_Comment [Aut omated message] The = Monocytes #) system which generated this result tra nsmitted reference range : <=0.8. The reference r melody was not used to int erpret this result as normal/abnormal . [facility] QxnuyauWIZAIGSGAZ8444-59-09 15:55:31 Test Item Value Reference Range Interpretation Comments Segs (test code = Segs) 58.3 45.0-75.0 [facility] [id number] 15:55:19 Test Item Value Reference Range Interpretation Comments Ca Norm WB (test code = Ca Norm WB) 1.11 1.05-1.25 [facility]PARATHYRO[facility] [id number] 15:55:19 Test Item Value Reference Range Interpretation Comments Ca Ion WB (test code = Ca Ion WB) 1.17 1.05-1.25 [facility] [id number] 03:45:57 Test Item Value Reference Range Interpretation Comments U Benzodia Scr (test Negative *NA*(12/16/13 code = U Benzodia Scr) 10:45 PM) [facility] [id number] 03:45:57 Test Item Value Reference Range Interpretation Comments U Cannab Scr (test Positive *ABN*(12/16/13 code = U Cannab Scr) 10:45 PM) [facility] [id number] 03:45:57 Test Item Value Reference Range Interpretation Comments U Cocaine Scr (test Negative *NA*(12/16/13 code = U Cocaine Scr) 10:45 PM) [facility] [id number] 03:45:57 Test Item Value Reference Range Interpretation Comments U Phencyc Scr (test Negative *NA*(12/16/13 code = U Phencyc Scr) 10:45 PM) [facility] [id number] 03:45:57 Test Item Value Reference Range Interpretation Comments U Opiate Scr (test Negative *NA*(12/16/13 code = U Opiate Scr) 10:45 PM) [facility] [id number] 03:45:57 Test Item Value Reference Range Interpretation Comments UDS Note (test code = See Note 6(12/16/13 UDS Note) 10:45 PM) [facility] [id number] 03:45:57 Test Item Value Reference Range Interpretation Comments U Amph Scr (test code Negative *NA*(12/16/13 = U Amph Scr) 10:45 PM) [facility] [id number] 03:45:57 Test Item Value Reference Range Interpretation Comments U Keyla Scr (test code Negative *NA*(12/16/13 = U Keyla Scr) 10:45 PM) [facility] [id number] 03:45:00 Test Item Value Reference Range Interpretation Comments Total CK (test code = Total CK) 56 12-191 [facility] HermannCARDIAC [id number] 03:45:00 Test Item Value Reference Range Interpretation Comments Troponin-T (test code no gt See_Comment [Auto mated message] The = Troponin-T) system which g enerated this result transmit marcelle reference range : <=0.100. The reference r melody was not used to interpr et this result as aranza l/abnormal. [facility] [id number] 03:45:00 Test Item Value Reference Range Interpretation Comments Troponin-I (test code no gt See_Comment [Auto mated message] The = Troponin-I) system which g enerated this result transmit marcelle reference range : <=0.40. The reference r melody was not used to interpr et this result as aranza l/abnormal. [facility] [id number] 03:45:00 Test Item Value Reference Range Interpretation Comments BNP (test code = BNP) 13 [facility] MfzdeufDGTBOK5166-89-87 03:45:00 Test Item Value Reference Range Interpretation Comments VLDL (test code = VLDL) 18 [facility] UmgepepOXVTBR9041-24-69 03:45:00 Test Item Value Reference Range Interpretation Comments LDL (Calculated) (test code = LDL 88 (Calculated)) [facility] TuhkjckZKFALH5833-28-16 03:45:00 Test Item Value Reference Range Interpretation Comments Trig (test code = Trig) 88 [facility] HzfotroNPTRCW2689-11-76 03:45:00 Test Item Value Reference Range Interpretation Comments CHD Risk (test code = CHD Risk) 3.08 3.90-5.80 [facility] OogqhfdVUJYSZ3662-39-67 03:45:00 Test Item Value Reference Range Interpretation Comments Chol (test code = Chol) 157 [facility] HospitalWobnsjpAGKWMS6699-34-77 03:45:00 Test Item Value Reference Range Interpretation Comments HDL (test code = HDL) [address] [facility] OOVZDLQXZ8650-61-64 03:45:00 Test Item Value Reference Range Interpretation Comments Hgb A1C (test code = Hgb A1C) 5.3 [facility] HermannTHYROID [id number] 03:45:00 Test Item Value Reference Range Interpretation Comments TSH (test code = TSH) 0.870 0.360-3.740 [facility] HospitalannCARD[facility]AC IKPWWMB8364-74-57 22:09:00 Test Item Value Reference Range Interpretation Comments Total CK (test code = Total CK) 42 12-191 [facility] [id number] 22:09:00 Test Item Value Reference Range Interpretation Comments Troponin-I (test code no gt See_Comment [Auto mated message] The = Troponin-I) system which g enerated this result transmit marcelle reference range : <=0.40. The reference r melody was not used to interpr et this result as aranza l/abnormal. [facility] HospitalannCHEM [id number] 19:30:00 Test Item Value Reference Range Interpretation Comments Lactic Acid Lvl (test code = Lactic 1.3 0.5-2.2 Acid Lvl) [facility] HospitalCsnyywqHKDYUPIZEF8539-25-14 19:30:00 Test Item Value Reference Range Interpretation Comments PT (test code = PT) 11.8 s 12.0-14.7 [facility] HospitalJdczdvcLWOBZEGHLH0263-56-87 19:30:00 Test Item Value Reference Range Interpretation Comments INR (test code = INR) 0.87 0.85-1.17 [facility] HospitalDxbkurtTMZWVZRPMB8161-46-55 19:30:00 Test Item Value Reference Range Interpretation Comments PTT (test code = PTT) 31.2 s 22.9-35.8 [facility] CenterCxztjlkLMOPMCKSCQ4770-23-79 19:30:00 Test Item Value Reference Range Interpretation Comments RBC (test code = RBC) 4.69 4.20-5.40 [facility] HospitalCatdssnPRNHTYEOKW8652-04-45 19:30:00 Test Item Value Reference Range Interpretation Comments WBC (test code = WBC) 6.6 3.7-10.4 [facility] HealthcareGpgwdajZZHROCNFJZ9855-43-89 19:30:00 Test Item Value Reference Range Interpretation Comments Hct (test code = Hct) 40.5 36.0-48.0 [facility] CenterIrtahswHKLGBTUZIO5805-34-13 19:30:00 Test Item Value Reference Range Interpretation Comments MCV (test code = MCV) 86.4 81.0-99.0 [facility]wallFcntrsqSSMKCAHERO5107-22-39 19:30:00 Test Item Value Reference Range Interpretation Comments Hgb (test code = Hgb) 13.6 12.0-16.0 [facility]wallIepkoufGEUUZRHHYK8494-27-33 19:30:00 Test Item Value Reference Range Interpretation Comments MCH (test code = MCH) 29.0 pg 27.0-31.0 [facility]wallEevgglpRPRVZCJKSC5890-17-99 19:30:00 Test Item Value Reference Range Interpretation Comments MCHC (test code = MCHC) 33.6 32.0-36.0 [facility]wallAxnczbvWIJPCKYJHI3886-37-19 19:30:00 Test Item Value Reference Range Interpretation Comments Platelet (test code = Platelet) 202 133-450 [facility]wallMrjhcphLIZQLXMVKC9730-59-43 19:30:00 Test Item Value Reference Range Interpretation Comments RDW (test code = RDW) 13.4 11.5-14.5 [facility]wallLwjnxizDWMARHZLIT0037-33-14 19:30:00 Test Item Value Reference Range Interpretation Comments MPV (test code = MPV) 8.6 7.4-10.4 [facility] RockwallQusbacwTNWYTODCXY8352-64-81 19:30:00 Test Item Value Reference Range Interpretation Comments Monocytes # (test code 0.8 See_Comment [Aut omated message] The = Monocytes #) system which generated this result tra nsmitted reference range : <=0.8. The reference r melody was not used to int erpret this result as normal/abnormal . [facility] RockwallJgzowzlDZMXFOBKHD4669-22-16 19:30:00 Test Item Value Reference Range Interpretation Comments Basophils # (test code 0.0 See_Comment [Aut omated message] The = Basophils #) system which generated this result tra nsmitted reference range : <=0.2. The reference r melody was not used to int erpret this result as normal/abnormal . [facility] RockwallFspmbexOYQIIGEIBC1571-51-47 19:30:00 Test Item Value Reference Range Interpretation Comments Monocytes (test code = Monocytes) 12.1 2.0-12.0 [facility]wallLbyebrwQBNXGXHVUY8312-07-35 19:30:00 Test Item Value Reference Range Interpretation Comments Eosinophils (test code = 3.8 See_Comment [A utomated message] The Eosinophils) system which ge nerated this result tra nsmitted reference range : <=4.0. The reference r melody was not used to int erpret this result as normal/abnormal . [facility] RockwallLuoszjtMDGHXNMTGR6450-12-35 19:30:00 Test Item Value Reference Range Interpretation Comments Basophils (test code = 0.6 See_Comment [Aut omated message] The Basophils) system which ge nerated this result tra nsmitted reference range : <=1.0. The reference r melody was not used to int erpret this result as normal/abnormal . [facility] RockwallVvfizptJNNIQTNZEI3420-58-37 19:30:00 Test Item Value Reference Range Interpretation Comments Segs-Bands # (test code = Segs-Bands #) 3.9 1.5-8.1 [facility] RockwallDqwwwylUSZVKEUSIS4805-83-99 19:30:00 Test Item Value Reference Range Interpretation Comments Eosinophils # (test code 0.3 See_Comment [A utomated message] The = Eosinophils #) system whic h generated this result tra nsmitted reference range : <=0.5. The reference r melody was not used to int erpret this result as normal/abnormal . [facility]wallDdrsxnfYAZMQMVABJ0146-78-05 19:30:00 Test Item Value Reference Range Interpretation Comments Lymphocytes # (test code = Lymphocytes 1.6 1.0-5.5 #) [facility] RockwallUlkgxbxALJPWGXMAR5141-49-73 19:30:00 Test Item Value Reference Range Interpretation Comments Lymphocytes (test code = Lymphocytes) 25.0 20.0-40.0 [facility] RockwallAohpeyrDFVOXFIHWC0513-49-52 19:30:00 Test Item Value Reference Range Interpretation Comments Segs (test code = Segs) 58.5 45.0-75.0 [facility] CenterWiseBanyan [id number] 17:43:24 Test Item Value Reference Range Interpretation Comments eGFR (test code = eGFR) 79 [facility]2014-04-20 17:43:24 Test Item Value Reference Range Interpretation Comments Creatinine Lvl (test code = Creatinine 0.9 0.5-1.4 Lvl) [facility]2014-04-20 17:43:24 Test Item Value Reference Range Interpretation Comments Sodium Lvl (test code = Sodium Lvl) 142 135-145 [facility]2014-04-20 17:43:24 Test Item Value Reference Range Interpretation Comments Potassium Lvl (test code = Potassium 4.5 3.5-5.1 Lvl) [facility]2014-04-20 17:43:24 Test Item Value Reference Range Interpretation Comments Chloride Lvl (test code = Chloride Lvl) 107 95-109 [facility]2014-04-20 17:43:24 Test Item Value Reference Range Interpretation Comments Glucose Lvl (test code = Glucose Lvl) 78 70-99 [facility]2014-04-20 17:43:24 Test Item Value Reference Range Interpretation Comments BUN (test code = BUN) 11 7- [facility]2014-04-20 17:43:24 Test Item Value Reference Range Interpretation Comments A/G Ratio (test code = A/G Ratio) 1.0 0.7-1.6 [facility]2014-04-20 17:43:24 Test Item Value Reference Range Interpretation Comments B/C Ratio (test code = B/C Ratio) 12 - [facility]2014-04-20 17:43:24 Test Item Value Reference Range Interpretation Comments Globulin (test code = Globulin) 3.6 2.0-4.0 [facility]2014-04-20 17:43:24 Test Item Value Reference Range Interpretation Comments AGAP (test code = AGAP) 16.5 10.0-20.0 [facility]2014-04-20 17:43:24 Test Item Value Reference Range Interpretation Comments Total Protein (test code = Total 7.2 6.4-8.4 Protein) [facility]2014-04-20 17:43:24 Test Item Value Reference Range Interpretation Comments AST (test code = AST) 19 See_Comment [Auto mated message] The system which ge nerated this result transmit marcelle reference range : <=37. The reference range was not used to interpr et this result as aranza l/abnormal. [facility]2014-04-20 17:43:24 Test Item Value Reference Range Interpretation Comments CO2 (test code = CO2) 23 24-32 [facility]2014-04-20 17:43:24 Test Item Value Reference Range Interpretation Comments Calcium Lvl (test code = Calcium Lvl) 9.2 8.5-10.5 [facility] [employer] [id number] 17:43:24 Test Item Value Reference Range Interpretation Comments Bili Total (test code = Bili Total) 0.3 0.2-1.3 [facility] [employer] [id number] 17:43:24 Test Item Value Reference Range Interpretation Comments Albumin Lvl (test code = Albumin Lvl) 3.6 3.5-5.0 [facility] [employer] [id number] 17:43:24 Test Item Value Reference Range Interpretation Comments Alk Phos (test code = Alk Phos) 87 39-136 [facility] [employer] [id number] 17:43:24 Test Item Value Reference Range Interpretation Comments ALT (test code = ALT) 31 See_Comment [Auto mated message] The system which ge nerated this result transmit marcelle reference range : <=65. The reference range was not used to interpr et this result as aranza l/abnormal. [facility] [place]2014-04-20 17:43:00 Test Item Value Reference Range Interpretation Comments Total CK (test code = Total CK) 56 12-191 [facility] [place]2014-04-20 17:43:00 Test Item Value Reference Range Interpretation Comments Troponin-I (test code no gt See_Comment [Auto mated message] The = Troponin-I) system which g enerated this result transmit marcelle reference range : <=0.40. The reference r melody was not used to interpr et this result as aranza l/abnormal. [facility] [place]2014-03-13 19:12:00 Test Item Value Reference Range Interpretation Comments Troponin-I (test code no gt See_Comment [Auto mated message] The = Troponin-I) system which g enerated this result transmit marcelle reference range : <=0.40. The reference r melody was not used to interpr et this result as aranza l/abnormal. [facility] [place]2014-03-13 19:12:00 Test Item Value Reference Range Interpretation Comments Total CK (test code = Total CK) 49 12-191 [facility] [place]2014-03-13 19:12:00 Test Item Value Reference Range Interpretation Comments Troponin-T (test code no gt See_Comment [Auto mated message] The = Troponin-T) system which g enerated this result transmit marcelle reference range : <=0.100. The reference r melody was not used to interpr et this result as aranza l/abnormal. [facility] CenterAhhdwheJEAYJZLHM7265-28-20 19:12:00 Test Item Value Reference Range Interpretation Comments Myoglobin (test code = Myoglobin) 36 25-72 [facility] [id number] 12:35:00 Test Item Value Reference Range Interpretation Comments Troponin-T (test code no gt See_Comment [Auto mated message] The = Troponin-T) system which g enerated this result transmit marcelle reference range : <=0.100. The reference r melody was not used to interpr et this result as aranza l/abnormal. [facility] [id number] 12:35:00 Test Item Value Reference Range Interpretation Comments Total CK (test code = Total CK) 54 12-191 [facility] [id number] 12:35:00 Test Item Value Reference Range Interpretation Comments Troponin-I (test code no gt See_Comment [Auto mated message] The = Troponin-I) system which g enerated this result transmit marcelle reference range : <=0.40. The reference r melody was not used to interpr et this result as aranza l/abnormal. [facility] [id number] 08:36:00 Test Item Value Reference Range Interpretation Comments Troponin-I (test code no gt See_Comment [Auto mated message] The = Troponin-I) system which g enerated this result transmit marcelle reference range : <=0.40. The reference r melody was not used to interpr et this result as aranza l/abnormal. [facility]HEYGZQLK7146-[facility]-47 08:36:00 Test Item Value Reference Range Interpretation Comments AGAP (test code = AGAP) 11.4 10.0-20.0 [id number] 08:36:00 Test Item Value Reference Range Interpretation Comments eGFR (test code = eGFR) 69 [facility]61 08:36:00 Test Item Value Reference Range Interpretation Comments Calcium Lvl (test code = Calcium Lvl) 9.2 8.5-10.5 [facility]WgvgmjoKSUFKQKMEZFW1173-48-51 08:36:00 Test Item Value Reference Range Interpretation Comments CO2 (test code = CO2) 27 24-32 [facility]GbmyodnDGVZWSYCBVTZ4914-99-51 08:36:00 Test Item Value Reference Range Interpretation Comments Chloride Lvl (test code = Chloride Lvl) 105 95-109 [facility]PutjqyaTYLZXELYQDXH6121-63-85 08:36:00 Test Item Value Reference Range Interpretation Comments Potassium Lvl (test code = Potassium 3.4 3.5-5.1 Lvl) [facility]YkxjojoYQUFRFQZWWRR1205-15-74 08:36:00 Test Item Value Reference Range Interpretation Comments Sodium Lvl (test code = Sodium Lvl) 140 135-145 [facility]FkeujtqSHBSBOBHTKLD2480-13-72 08:36:00 Test Item Value Reference Range Interpretation Comments BUN (test code = BUN) 11 7-22 [facility] HospitalKvjsmthGXPOSCMWYFVV2274-69-41 08:36:00 Test Item Value Reference Range Interpretation Comments Glucose Lvl (test code = Glucose Lvl) 84 70-99 [facility] HospitalVazhhgsOVXYZZAFNCLX9504-69-20 08:36:00 Test Item Value Reference Range Interpretation Comments Creatinine Lvl (test code = Creatinine 1.0 0.5-1.4 Lvl) [facility]XzfcbodCTBJUDLHYD0388-33-73 08:36:00 Test Item Value Reference Range Interpretation Comments Basophils # (test code 0.1 See_Comment [Aut omated message] The = Basophils #) system which generated this result tra nsmitted reference range : <=0.2. The reference r melody was not used to int erpret this result as normal/abnormal . [facility]wallCtlmshaVAMWKURKZL4432-92-12 08:36:00 Test Item Value Reference Range Interpretation Comments Eosinophils # (test code 0.2 See_Comment [A utomated message] The = Eosinophils #) system whic h generated this result tra nsmitted reference range : <=0.5. The reference r melody was not used to int erpret this result as normal/abnormal . [facility]wallOjkovwgEBULZIPFQX6362-01-24 08:36:00 Test Item Value Reference Range Interpretation Comments Monocytes # (test code 0.8 See_Comment [Aut omated message] The = Monocytes #) system which generated this result tra nsmitted reference range : <=0.8. The reference r melody was not used to int erpret this result as normal/abnormal . [facility]wa[id number] 08:36:00 Test Item Value Reference Range Interpretation Comments Segs (test code = Segs) 72.5 45.0-75.0 [facility]wallWgtrvhtDLMTRTGZSP2351-92-55 08:36:00 Test Item Value Reference Range Interpretation Comments Lymphocytes (test code = Lymphocytes) 17.0 20.0-40.0 [facility]wallG[id number] 08:36:00 Test Item Value Reference Range Interpretation Comments Eosinophils (test code = 2.1 See_Comment [A utomated message] The Eosinophils) system which ge nerated this result tra nsmitted reference range : <=4.0. The reference r melody was not used to int erpret this result as normal/abnormal . [facility]wa[id number] 08:36:00 Test Item Value Reference Range Interpretation Comments Monocytes (test code = Monocytes) 7.8 2.0-12.0 [facility]wallDucufbsGSZPRCJZGO3728-86-02 08:36:00 Test Item Value Reference Range Interpretation Comments Segs-Bands # (test code = Segs-Bands #) 7.6 1.5-8.1 [facility]wallMvqcmwqZUZRUHVVLY6445-58-50 08:36:00 Test Item Value Reference Range Interpretation Comments Basophils (test code = 0.6 See_Comment [Aut omated message] The Basophils) system which ge nerated this result tra nsmitted reference range : <=1.0. The reference r melody was not used to int erpret this result as normal/abnormal . [facility]wallFpzlfrsSYWMZNJOJZ6918-96-44 08:36:00 Test Item Value Reference Range Interpretation Comments Lymphocytes # (test code = Lymphocytes 1.8 1.0-5.5 #) [facility]wallApymdjxNWLHOVTHNA8137-88-03 08:36:00 Test Item Value Reference Range Interpretation Comments MPV (test code = MPV) 8.7 7.4-10.4 [facility]wallJfmyrjmVFDENEMNPT9912-89-00 08:36:00 Test Item Value Reference Range Interpretation Comments RDW (test code = RDW) 14.0 11.5-14.5 [facility]wallArgtcgmFKSCSWEFIB6181-82-50 08:36:00 Test Item Value Reference Range Interpretation Comments Platelet (test code = Platelet) 191 133-450 [facility] RockwallGiilawdUSVNBQWNCD5790-72-74 08:36:00 Test Item Value Reference Range Interpretation Comments MCHC (test code = MCHC) 33.9 32.0-36.0 [facility] RockwallNkyfpfsLHRAHKHNGU9199-79-58 08:36:00 Test Item Value Reference Range Interpretation Comments RBC X 10x6 (test code = RBC X 10x6) 4.65 4.20-5.40 [facility] RockwallLyomdptUGVVEQFOJB8948-76-29 08:36:00 Test Item Value Reference Range Interpretation Comments WBC X 10x3 (test code = WBC X 10x3) 10.6 3.7-10.4 [facility] Rockwa[id number] 08:36:00 Test Item Value Reference Range Interpretation Comments MCH (test code = MCH) 29.3 pg 27.0-31.0 [facility] RockwallBolxabjKZEUYUQCWO0673-44-30 08:36:00 Test Item Value Reference Range Interpretation Comments MCV (test code = MCV) 86.6 81.0-99.0 [facility] RockwallSwwhxumBCGRIQSHLC1280-19-75 08:36:00 Test Item Value Reference Range Interpretation Comments Hgb (test code = Hgb) 13.6 12.0-16.0 [facility] RockwallAsbysydOVOCQYBWQB6144-84-62 08:36:00 Test Item Value Reference Range Interpretation Comments Hct (test code = Hct) 40.2 36.0-48.0 [facility]
[2021-10-15] MEDS ORDERED: LIDOCAINE 4% PATCH ONE (11:41)
--- NOTE | 2021-10-15 12:00 | RAD REPORT ---
EXAM DESCRIPTION: RAD - Chest Single View - 10/15/2021 11:52 am CLINICAL HISTORY: hypotension COMPARISON: Chest Single View dated 08/23/2021; Chest Single View dated 08/03/2021; Chest Single View dated 07/31/2021; Chest Pa And Lat (2 Views) dated 04/07/2021 FINDINGS: Lines: None. Lungs: No evidence of edema or pneumonia. Pleural: No significant pleural effusions or pneumothorax. Cardiac: The heart size is within normal limits. Bones: No acute fractures. Other: IMPRESSION: No acute cardiopulmonary disease.
[2021-10-15 12:12] LABS: Absolute Lymphocytes (CBC) 1.9 K/uL (0.7-4.9); Hematocrit 41.8 % (36.0-45.0); Lymphocytes % 30.5 % (15.3-44.8); RBC Red Blood Cell Count 4.77 M/uL (3.86-4.86)
[2021-10-15 12:17] LABS: Protime INR 1.04
[2021-10-15 12:32] LABS: ALT/SGPT 14 U/L (12-78); AST/SGOT 15 U/L (15-37); Albumin 3.5 g/dL (3.4-5.0); Alkaline Phosphatase 117 U/L (45-117); BUN Blood Urea Nitrogen 8 mg/dL (7-18); Bicarbonate 25 mmol/L (21-32); Bilirubin Direct 0.2 mg/dL (0-0.2); Bilirubin Total 0.6 mg/dL (0.2-1.0); Glucose Level 80 mg/dL (74-106); NT PRO-BNP 39 pg/mL (<125); Protein, Total 6.4 g/dL (6.4-8.2); Sodium Level 142 mmol/L (136-145)
[2021-10-15] MEDS ORDERED: NA CHLORIDE 0.9% 0 ML ONE (12:41)
--- NOTE | 2021-10-15 13:07 | ER ---
Nurse's Notes [facility] Name: Winsome Yepez Age: 71 yrs Sex: Female : 1950 Arrival Date: 10/15/2021 Time: 10:51 Bed 6 Private MD: Diagnosis: Other chronic pain-low back pain;Hypotension, unspecified Presentation: 10/15 10:55 Chief complaint: EMS states: toned out for body aches; upon arrival pt BP was 79/50; pt vg1 c/o SOB, CP, and dizziness, stated took Aspirin 81 mg x2 PO. Pt denies NVD or headache. Pt was given 400 mL of NS, pt BP 92/62. Coronavirus screen: Vaccine status: Patient reports receiving the 2nd dose of the covid vaccine. Ebola Screen: Patient negative for fever greater than or equal to 101.5 degrees Fahrenheit, and additional compatible Ebola Virus Disease symptoms. Initial Sepsis Screen: Does the patient meet any 2 criteria? No. Patient's initial sepsis screen is negative. Does the patient have a suspected source of infection? No. Patient's initial sepsis screen is negative. Risk Assessment: Do you want to hurt yourself or someone else? Patient reports no desire to harm self or others. Onset of symptoms was October 15, 2021. 10:55 Method Of Arrival: EMS: [facility] vg1 10:55 Acuity: CYNTHIA 3 vg1 Triage Assessment: 10:59 General: Appears in no apparent distress. uncomfortable, Behavior is calm, cooperative. vg1 Pain: Complains of pain in generalized body Pain currently is 9 out of 10 on a pain scale. Pain began 30 min ago. EENT: No signs and/or symptoms were reported regarding the EENT system. Neuro: Level of Consciousness is awake, alert, obeys commands, Oriented to person, place, time, situation, Denies headache. Cardiovascular: Patient's skin is warm and dry. Respiratory: Reports shortness of breath at rest on exertion Airway is patent Respiratory effort is even, unlabored. GI: Patient currently denies diarrhea, nausea, vomiting. : No signs and/or symptoms were reported regarding the genitourinary system. Derm: Skin is intact, Skin is pink, warm \T\ dry. Musculoskeletal: Circulation, motion, and sensation intact. Historical: - Allergies: 10:59 PENICILLINS; vg1 - Home Meds: 10:59 Albuterol Inhl [Active]; metronidazole Oral [Active]; vg1 - PMHx: 10:59 Asthma; chronic back pain; Hypertensive disorder; vg1 - Immunization history:: Client reports receiving the 2nd dose of the Covid vaccine. - Social history:: Smoking status: Patient reports the use of cigarette tobacco products, smokes one pack cigarettes per day. Screenin:01 Abuse screen: Denies threats or abuse. Nutritional screening: No deficits noted. vg1 Tuberculosis screening: No symptoms or risk factors identified. Fall Risk No fall in past 12 months (0 pts). No secondary diagnosis (0 pts). IV access (20 points). Ambulatory Aid- None/Bed Rest/Nurse Assist (0 pts). Gait- Normal/Bed Rest/Wheelchair (0 pts) Mental Status- Oriented to own ability (0 pts). Total Blake Fall Scale indicates No Risk (0-24 pts). Assessment: 10:55 Reassessment: SEE TRIAGE. vg1 12:03 Reassessment: Patient appears in no apparent distress at this time. No changes from vg1 previously documented assessment. Patient and/or family updated on plan of care and expected duration. Pain level reassessed. Patient is alert, oriented x 3, equal unlabored respirations, skin warm/dry/pink. 12:20 Reassessment: Patient and/or family updated on plan of care and expected duration. Pain cb5 level reassessed. 13:07 Reassessment: Patient appears in no apparent distress at this time. Patient and/or vg1 family updated on plan of care and expected duration. Pain level reassessed. Patient is alert, oriented x 3, equal unlabored respirations, skin warm/dry/pink. Patient states feeling better. Vital Signs: 10:55 BP 121 / 97; Pulse 75; Resp 15; Temp 98.2; Pulse Ox 100% ; Weight 49.9 kg; Height 5 ft. vg1 0 in. (152.40 cm); Pain 9/10; 11:12 BP 99 / 70; Pulse 60; Resp 15; Pulse Ox 98% ; vg1 12:03 BP 96 / 84; Pulse 60; Resp 15; Pulse Ox 99% ; vg1 12:38 BP 127 / 66; Pulse 64; Resp 16; Pulse Ox 98% on R/A; vg1 13:00 BP 126 / 69; Pulse 70; Resp 12; Pulse Ox 99% ; vg1 10:55 Body Mass Index 21.48 (49.90 kg, 152.40 cm) vg1 ED Course: 10:51 Patient arrived in ED. 10:55 Pratik Weir NP is PHCP. pm1 10:55 Vick Mendieta MD is Attending Physician. pm1 10:55 Bhargavi Jennings, RN is Primary Nurse. vg1 10:59 Triage completed. vg1 11:01 Arm band placed on. vg1 11:01 Patient has correct armband on for positive identification. Bed in low position. Call vg1 light in reach. Side rails up X 1. college teacher on. Pulse ox on. NIBP on. 11:01 Maintain EMS IV. Dressing intact. Good blood return noted. Site clean \T\ dry. Gauge \T\ vg 1 site: 20 R FA. 11:52 XRAY Chest (1 view) In Process Unspecified. EDMS 13:37 No provider procedures requiring assistance completed. IV discontinued, intact, vg1 bleeding controlled, No redness/swelling at site. Pressure dressing applied. Administered Medications: 12:02 Drug: Lidoderm Patch 5 % (700 mg/patch) 1 patches Route: Topical; Site: affected area; vg1 12:39 CANCELLED (Physician Discretion): NS 0.9% 500 ml IV at bolus once pm1 Outcome: 13:06 Discharge ordered by . pm1 13:37 Discharged to home via wheelchair. vg1 13:37 Condition: good 13:37 Discharge instructions given to patient, Instructed on discharge instructions, follow up and referral plans. Demonstrated understanding of instructions, follow-up care. 13:38 Patient left the ED. vg1 Signatures: Dispatcher [employer] EDMS Pratik Weir NP [employer] MECHANIC pm1 Bhargavi Jennings RN RN vg1 Heaven Dean RN RN mk Boman, Colleen RN RN cb5
--- NOTE | 2021-10-15 13:07 | EDPHYS ---
Physician Documentation [facility] Name: Winsome Yepez Age: 71 yrs Sex: Female : 1950 Arrival Date: 10/15/2021 Time: 10:51 Bed 6 Private MD: ED Physician Vick Mendieta HPI: 10/15 11:53 This 71 yrs old Black Female presents to ER via EMS with complaints of Body Ache. pm1 11:53 The patient presents with pain that is chronic, with no known mechanism of injury. The pm1 symptoms are located in the low back. Onset: The symptoms/episode began/occurred Patient ran out of her norco 1 week ago. Patient brought to the ER because EMS noted her blood pressure was low. The pain radiates to the left leg. Associated signs and symptoms: Pertinent negatives: abdominal pain, chest pain, constipation, dysuria, fever, headache. The problem was sustained from a chronic condition. Modifying factors: The patient symptoms are alleviated by nothing, the patient symptoms are aggravated by running out of pain medications, hydrocodone. Severity of symptoms: in the emergency department the symptoms are unchanged. The patient has experienced similar episodes in the past, chronically. The patient has not recently seen a physician. Historical: - Allergies: 10:59 PENICILLINS; vg1 - Home Meds: 10:59 Albuterol Inhl [Active]; metronidazole Oral [Active]; vg1 - PMHx: 10:59 Asthma; chronic back pain; Hypertensive disorder; vg1 - Immunization history:: Client reports receiving the 2nd dose of the Covid vaccine. - Social history:: Smoking status: Patient reports the use of cigarette tobacco products, smokes one pack cigarettes per day. ROS: 11:53 Constitutional: Negative for fever, chills, and weight loss, Cardiovascular: Negative pm1 for chest pain, palpitations, and edema, Respiratory: Negative for shortness of breath, cough, wheezing, and pleuritic chest pain, Abdomen/GI: Negative for abdominal pain, nausea, vomiting, diarrhea, and constipation. 11:53 MS/Extremity: Negative for injury and deformity, Skin: Negative for injury, rash, and discoloration. 11:53 Back: Positive for of the low back area, pain. 11:53 All other systems are negative. Exam: 11:53 Constitutional: This is a well developed, well nourished patient who is awake, alert, pm1 and in no acute distress. Head/Face: Normocephalic, atraumatic. 11:53 Skin: Warm, dry with normal turgor. Normal color with no rashes, no lesions, and no evidence of cellulitis. MS/ Extremity: Pulses equal, no cyanosis. Neurovascular intact. Full, normal range of motion. 11:53 Cardiovascular: Exam negative for acute changes, Rate: normal, Rhythm: regular, Pulses: no pulse deficits are appreciated, Heart sounds: normal. 11:53 Respiratory: Exam negative for acute changes, respiratory distress, shortness of breath. 11:53 Abdomen/GI: Exam negative for acute changes, Inspection: abdomen appears normal, Palpation: abdomen is soft and non-tender, in all quadrants. 11:53 Back: vertebral tenderness, is not appreciated, muscle spasm, is appreciated in the left low back and right low back. 11:53 Neuro: Exam negative for acute changes, Orientation: is normal, Mentation: is normal, Motor: is normal, moves all fours. Vital Signs: 10:55 BP 121 / 97; Pulse 75; Resp 15; Temp 98.2; Pulse Ox 100% ; Weight 49.9 kg; Height 5 ft. vg1 0 in. (152.40 cm); Pain 9/10; 11:12 BP 99 / 70; Pulse 60; Resp 15; Pulse Ox 98% ; vg1 12:03 BP 96 / 84; Pulse 60; Resp 15; Pulse Ox 99% ; vg1 12:38 BP 127 / 66; Pulse 64; Resp 16; Pulse Ox 98% on R/A; vg1 13:00 BP 126 / 69; Pulse 70; Resp 12; Pulse Ox 99% ; vg1 10:55 Body Mass Index 21.48 (49.90 kg, 152.40 cm) vg1 MDM: 10:55 Patient medically screened. pm1 13:00 ED course: Patient with low blood pressure per EMS on their arrival and patient pm1 responded well to 400 mL NS. Patient's vital signs stable in the ER. Patient came to the ER with complaints of chronic low back pain. Ran out of her norco 1 week ago. 13:05 Data reviewed: vital signs. Data interpreted: Pulse oximetry: on room air is 98 %. pm1 Interpretation: normal. Counseling: I had a detailed discussion with the patient and/or guardian regarding: the historical points, exam findings, and any diagnostic results supporting the discharge/admit diagnosis, lab results, radiology results, the need for outpatient follow up, to return to the emergency department if symptoms worsen or persist or if there are any questions or concerns that arise at home. 10/15 11:12 Order name: Basic Metabolic Panel; Complete Time: 12:35 pm1 10/15 11:12 Order name: CBC with Diff; Complete Time: 12:35 pm1 10/15 11:12 Order name: LFT's; Complete Time: 12:35 pm1 10/15 11:12 Order name: Magnesium; Complete Time: 12:35 pm1 10/15 11:12 Order name: NT PRO-BNP; Complete Time: 12:35 pm1 10/15 11:12 Order name: PT-INR; Complete Time: 12:35 pm1 10/15 11:12 Order name: Troponin HS; Complete Time: 12:35 pm1 10/15 11:12 Order name: XRAY Chest (1 view); Complete Time: 12:05 pm1 10/15 11:12 Order name: EKG; Complete Time: 11:13 pm1 10/15 11:12 Order name: Cardiac monitoring; Complete Time: 11:16 pm10/15 11:12 Order name: EKG - Nurse/Tech; Complete Time: 11:16 pm10/15 11:12 Order name: IV Saline Lock; Complete Time: 11:16 pm10/15 11:12 Order name: Labs collected and sent; Complete Time: 12:02 pm10/15 11:12 Order name: O2 Per Protocol; Complete Time: 11:16 pm10/15 11:12 Order name: O2 Sat Monitoring; Complete Time: 11:16 pm1 Administered Medications: 12:02 Drug: Lidoderm Patch 5 % (700 mg/patch) 1 patches Route: Topical; Site: affected area; vg1 12:39 CANCELLED (Physician Discretion): NS 0.9% 500 ml IV at bolus once pm1 Disposition Summary: 10/15/21 13:06 Discharge Ordered Location: Home pm1 Problem: new pm1 Symptoms: have improved pm1 Condition: Stable pm1 Diagnosis - Other chronic pain - low back pain pm1 - Hypotension, unspecified pm1 Followup: pm1 - With: Emergency Department - When: As needed - Reason: Worsening of condition Followup: pm1 - With: Private Physician - When: 2 - 3 days - Reason: Recheck today's complaints, Continuance of care, Re-evaluation by your physician Discharge Instructions: - Discharge Summary Sheet pm1 - Chronic Back Pain pm1 - Hypotension pm1 Forms: - Medication Reconciliation Form pm1 - Thank You Letter pm1 - Antibiotic Education pm1 - Prescription Opioid Use pm1 Addendum: 10/16/2021 23:59 Co-signature as Attending Physician, Vick Mendieta MD I agree with the assessment and k dr plan of care. Signatures: Dispatcher [employer] EDMS Vick Mendieta MD MD kdr Pratik Weir NP [employer] ARCHITECT pm1 Bhargavi Jennings RN RN vg1 Corrections: (The following items were deleted from the chart) 10/15 12:39 12:09 NS 0.9% 500 ml IV at bolus once ordered. pm1 pm1
[2021-10-15 13:44] VITALS: TEMP 98.2
[2021-10-15 13:48] VITALS: BP 126/69; O2SAT 99
--- NOTE | 2021-10-16 13:08 | EKG ---
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
== END 2021-10-15 13:38 | disposition home or self-care (01) ==
LOC: ER 10:50
DX: M54.50 Low back pain, unspecified (principal); I95.9 Hypotension, unspecified; I10 Essential (primary) hypertension; F17.210 Nicotine dependence, cigarettes, uncomplicated; Z88.0 Allergy status to penicillin
CPT/HCPCS: 36415; 71045; 80048; 80076; 83735; 83880; 84484; 85025; 85610; 93005; 99284; J7030

== ENCOUNTER 2021-10-30 09:31 | Emergency (ER) | payer OTHER ==
--- OUTSIDE RECORDS SUMMARY | 2021-10-30 09:50 | XMS REPORT | Continuity of Care Document ---
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 l 02:08: Dulcolax, Annabella 00 Bisco-Lax) Ondansetron No Notes: Eleazar hilton 02-17 (Same as: l 02:08: Zofran) Maciej 00 MEDICATION WASTE Product Size: [...] / 02-17 (Same as: l Hydrocodone 02:06: [place] Caroline nn Bitartrate 00 325/5) Do 5 MG Oral not exceed Tablet 4gm/day of acetaminop hen. Morphine No Notes: Memoria 02-17 (Same l 02:06: as:MORPhin Annabella 00 e Sulfate) Sodium No 1,000 mL, Memori a Chloride 02-17 Rate: 125 l 0.154 02:06: ml/hr, Annabella MEQ/ML 00 Infuse Injectable over: 8 Solution [...] 02-17 Route: l 0.9% IV 00:52: IVPB, Annabella 00 Start date: 02/16/15 19:52:00, Duration: 30 day, Stop date: 03/18/15 19:51:00, PRN Line Flush BD Normal No Notes: Memori a Saline 02-17 (Same as: l Flush 00:52: BD Maciej 00 Posiflush) Morphine No Notes: Memoria 02-17 (Same l 00:28: as:MORPhin Annabella 00 e Sulfate) Nitroglycer No Notes: Eleazar hilton in 02-17 (Same l 00:28: as:Nitroqu Maciej 00 ick, Nitrostat) "Do Not Crush" Sublingual tablet Aspirin No Notes: (Do Eleazar hilton 02-16 Not Crush) l 22:49: Do not crush or chew. Ondansetron No Notes: Eleazar hilton - (Same as: l 21:22: Zofran) Morphine No Notes: Memoria - (Same l 21:22: as:MORPhin Maciej 00 e Sulfate) Aspirin / No Notes: Memori a Calcium - Take with l Carbonate 21:22: food. Maciej Aspirin 81 Yes 81 mg = 1 Me moria MG Enteric -21 tab, PO, l Coated 20:08: Daily, # Annabella Tablet 00 90 tab, 0 Refill(s) metoprolol Yes 12.5 mg = Me moria tartrate 25 21 0.5 tab, l mg oral 20:08: PO, BID, # Herm eugenie tablet 00 90 tab, 0 Refill(s) clopidogrel Yes 75 mg = 1 M emoria 75 mg oral 4-21 tab, PO, l tablet 20:08: Daily, # Annabella 00 90 tab, 0 Refill(s) atorvastati Yes [...] crush l Carbonate 14:00: or chew. Herm (Same As: Ecotrin) Saline No Notes: Memoria [...] PO, l oral tablet 01:48: Bedtime, # Annabella 00 30 tab, 0 Refill(s) clopidogrel No [...] 4-20 Instructio l 21:17: ns: Dose = Annabella 00 2.2ml/kg, Max dose = 100ml -- [...] hilton 4-20 G.I. l 17:54: Cocktail = Annabella 00 antacid with simethicon e 22.5 mL [...] n 3-14 tab, l 02:00: Route: PO, Annabella 00 Drug form: TAB, Bedtime, Dosing Weight [...] tab, PO, l Tablet 20:52: Daily, # Annabella 00 60 tab, 0 Refill(s) Plavix No [...] 7:06:00, Duration: 30 day, Stop date: 12/08/13 7:05:00([facility] as: BD Posiflush) Nitroglycer 2013- No 0.4 mg, 1 M emoria in 3-13 tab, l 12:06: Route: SL, Drug form: TAB, Q5Min, Dosing Weight 63.636, kg, PRN Chest Pain, Start date: 11/08/13 7:06:00, Duration: 30 day, Stop date: 12/08/13 7:01:00([facility] as:Nitroqu ick, Nitrostat) "Do Not Crush" Sublingual [...] 2020-10-15 10:45:00 114 mm[Hg] [facility] Diastolic blood 2020-10-15 10:45:00 80 mm[Hg] [facility] Heart rate 2020-10-15 10:45:00 76 /min [facility] Body temperature 2020-10-15 10:45:00 37.44 [facility] Res[facility] rate 2020-10-15 10:45:00 18 /min [facility] Oxygen saturation in 2020-10-15 10:45:00 95 /min [facility] Arterial blood by [facility] Pulse oximetry Branch Body height 2020-10-15 07:57:00 152.4 cm [facility] Body weight 2020-10-15 07:57:00 40.824 kg [facility] BMI 2020-10-15 07:57:00 17.58 kg/m2 [facility] Systolic blood 2020-10-15 10:45:00 114 mm[Hg] [facility] Diastolic blood 2020-10-15 10:45:00 80 mm[Hg] [facility] Heart rate 2020-10-15 10:45:00 76 /min [facility] Body temperature 2020-10-15 10:45:[address] [facility] Respiratory rate 2020-10-15 10:45:00 18 /min [facility] Oxygen saturation in 2020-10-15 10:45:00 95 /min [facility] Arterial blood by [facility] Pulse oximetry Branch Body height 2020-10-15 07:57:00 152.4 cm [facility] Body weight 2020-10-15 07:57:00 40.824 kg [facility] BMI 2020-10-15 07:57:00 17.58 kg/m2 [facility] Systolic (mm Hg) 2017-01-19 23:16:00 Eleazar rial Annabella Diastolic (mm Hg) 2017-01-19 23:16:00 Mem orial Annabella Respitory Rate 2017-01-19 23:16:00 Memori al Maciej Systolic (mm Hg) 2017-01-19 22:28:00 Eleazar rial Annabella Diastolic (mm Hg) 2017-01-19 22:28:00 Mem orial Annabella Respitory Rate 2017-01-19 22:28:00 Memori al Maciej Respitory Rate 2017-01-19 21:00:00 Memori al Annabella Systolic (mm Hg) 2017-01-19 20:00:00 Eleazar rial Maciej Diastolic (mm Hg) 2017-01-19 20:00:00 Mem orial Annabella Weight 2017-01-19 17:23:00 [facility] Maciej BMI Calculated 2017-01-19 17:23:00 [facility]ori al Maciej Height 2017-01-19 17:23:00 152.4 cm [facility] Maciej Temperature Oral (F) 2017-01-19 17:23:00 97.0 F [facility]iej Heart Rate 2017-01-19 17:23:00 [facility] Maciej Systolic (mm Hg) 2017-01-17 02:10:00 Eleazar rial Annabella Diastolic (mm Hg) 2017-01-17 02:10:00 Mem orial Annabella Respitory Rate 2017-01-17 02:10:00 Memori al Annabella Systolic (mm Hg) 2017-01-17 01:21:00 Eleazar rial Maciej Diastolic (mm Hg) 2017-01-17 01:21:00 Mem orial Annabella Respitory Rate 2017-01-17 01:21:00 Memori al Annabella Temperature Oral (F) 2017-01-17 01:21:00 98.1 F [facility] Maciej Systolic (mm Hg) 2017-01-17 00:28:00 Eleazar rial Annabella Diastolic (mm Hg) 2017-01-17 00:28:00 Mem orial Maciej Respitory Rate 2017-01-17 00:28:00 [facility]ori al Annabella Heart Rate 2017-01-16 23:24:00 [facility] Annabella Temperature Oral (F) 2017-01-16 23:24:00 98 F [facility] Maciej Weight 2017-01-16 23:24:00 [facility] Heart Rate 2016-11-29 03:44:00 [facility] Annabella Systolic (mm Hg) 2016-11-29 03:44:00 Eleazar rial Annabella Diastolic (mm Hg) 2016-11-29 03:44:00 Mem orial Annabella Respitory Rate 2016-11-29 03:44:00 Memori al Maciej Temperature Oral (F) 2016-11-29 03:44:00 98.7 F [facility] Maciej Heart Rate 2016-11-29 03:24:00 [facility] Annabella Respitory Rate 2016-11-29 03:24:00 Memori al Annabella Systolic (mm Hg) 2016-11-29 03:24:00 Eleazar rial Annabella Diastolic (mm Hg) 2016-11-29 03:24:00 Mem orial Maciej Heart Rate 2016-11-29 02:51:00 [facility] Maciej Respitory Rate 2016-11-29 02:51:00 Memori al Maciej Systolic (mm Hg) 2016-11-29 02:51:00 Eleazar rial Maciej Diastolic (mm Hg) 2016-11-29 02:51:00 Mem orial Annabella Weight 2016-11-29 00:21:00 [facility] Maciej BMI Calculated 2016-11-29 00:21:00 Memori al Maciej Height 2016-11-29 00:21:00 152.4 cm [facility] Maciej Temperature Oral (F) 2016-11-29 00:21:00 98.6 F [facility] Annabella Respitory Rate 2016-11-07 02:47:00 Memori al Maciej Heart Rate 2016-11-07 02:47:00 [facility] Annabella Temperature Oral (F) 2016-11-07 02:47:00 98.2 F [facility] Annabella Systolic (mm Hg) 2016-11-07 02:47:00 Eleazar rial Annabella Diastolic (mm Hg) 2016-11-07 02:47:00 Mem orial Annabella Heart Rate 2016-11-07 02:22:00 [facility] Maciej Respitory Rate 2016-11-07 02:22:00 Memori al Annabella Systolic (mm Hg) 2016-11-07 02:22:00 Eleazar rial Maciej Diastolic (mm Hg) 2016-11-07 02:22:00 Mem orial Maciej Weight 2016-11-06 23:37:00 [facility] Maciej Heart Rate 2016-11-06 23:37:00 [facility] Annabella Temperature Oral (F) 2016-11-06 23:37:00 98.3 F [facility] Maciej Respitory Rate 2016-11-06 23:37:00 Memori al Annabella Systolic (mm Hg) 2016-11-06 23:37:00 Eleazar rial Maciej Diastolic (mm Hg) 2016-11-06 23:37:00 Mem orial Annabella Respitory Rate 2016-10-11 18:24:00 Memori al Maciej Temperature Oral (F) 2016-10-11 18:24:00 97.9 F [facility] Maciej Systolic (mm Hg) 2016-10-11 18:24:00 Eleazar rial Maciej Diastolic (mm Hg) 2016-10-11 18:24:00 Mem orial Annabella Heart Rate 2016-10-11 18:24:00 [facility] Maciej Heart Rate 2016-10-11 13:53:00 [facility] Maciej Systolic (mm Hg) 2016-10-11 13:53:00 Eleazar rial Maciej Diastolic (mm Hg) 2016-10-11 13:53:00 Mem orial Annabella Temperature Oral (F) 2016-10-11 13:53:00 98.1 F [facility] Annabella Temperature Oral (F) 2016-10-11 10:16:00 99.0 F [facility] Maciej Respitory Rate 2016-10-11 10:16:00 Memori al Maciej Heart Rate 2016-10-11 10:16:00 [facility] Annabella Systolic (mm Hg) 2016-10-11 10:16:00 Eleazar rial Maciej Diastolic (mm Hg) 2016-10-11 10:16:00 Mem orial Maciej Weight 2016-10-11 06:46:00 [facility] Annabella BMI Calculated 2016-10-11 06:46:00 Memori al Annabella Height 2016-10-11 06:46:00 152.4 cm [facility] Annabella Respitory Rate 2016-10-11 06:39:00 Memori al Annabella Height 2016-10-10 17:48:00 152.4 cm [facility] Annabella BMI Calculated 2016-10-10 17:48:00 Memori al Maciej Weight 2016-10-10 17:48:00 [facility] Maciej BMI Calculated 2016-09-15 04:26:00 Memori al Maciej Weight 2016-09-15 04:26:00 [facility] Annabella Height 2016-09-15 04:26:00 152.4 cm [facility] Annabella Systolic (mm Hg) 2016-09-15 04:26:00 Eleazar rial Maciej Diastolic (mm Hg) 2016-09-15 04:26:00 Mem orial Annabella Respitory Rate 2016-09-15 04:26:00 Memori al Annabella Heart Rate 2016-09-15 04:26:00 [facility] Annabella Temperature Oral (F) 2016-09-15 04:26:00 98.5 F [facility] Maciej Respitory Rate 2016-04-14 06:22:00 Memori al Annabella Temperature Oral (F) 2016-04-14 06:22:00 98.7 F [facility] Annabella Systolic (mm Hg) 2016-04-14 06:22:00 Eleazar rial Annabella Diastolic (mm Hg) 2016-04-14 06:22:00 Mem orial Annabella Heart Rate 2016-04-14 06:22:00 [facility] Annabella BMI Calculated 2016-04-14 02:12:00 Memori al Annabella Weight 2016-04-14 02:12:00 [facility] Annabella Temperature Oral (F) 2016-04-14 02:12:00 99.2 F [facility] Annabella Height 2016-04-14 02:12:00 152.4 cm [facility] Maciej Respitory Rate 2016-04-14 02:12:00 Memori al Maciej Systolic (mm Hg) 2016-04-14 02:12:00 Eleazar rial Annabella Diastolic (mm Hg) 2016-04-14 02:12:00 Mem orial Maciej Heart Rate 2016-04-14 02:12:00 [facility] Annabella Temperature Oral (F) 2016-03-12 17:00:00 97.8 F [facility] Maciej Heart Rate 2016-03-12 17:00:00 [facility] Annabella Respitory Rate 2016-03-12 17:00:00 Memori al Maciej Systolic (mm Hg) 2016-03-12 17:00:00 Eleazar rial Maciej Diastolic (mm Hg) 2016-03-12 17:00:00 Mem orial Annabella Respitory Rate 2016-03-12 12:54:00 Memori al Annabella Systolic (mm Hg) 2016-03-12 12:30:00 Eleazar rial Maciej Diastolic (mm Hg) 2016-03-12 12:30:00 Mem orial Maciej Respitory Rate 2016-03-12 12:30:00 Memori al Annabella Heart Rate 2016-03-12 12:30:00 [facility] Maciej Temperature Oral (F) 2016-03-12 12:30:00 98.2 F [facility] Maciej Temperature Oral (F) 2016-03-12 10:26:00 98.0 F [facility] Annabella Heart Rate 2016-03-12 10:26:00 [facility] Maciej Systolic (mm Hg) 2016-03-12 10:26:00 Eleazar rial Annabella Diastolic (mm Hg) 2016-03-12 10:26:00 Mem orial Maciej Height 2016-03-11 19:45:00 152.4 cm [facility] Annabella BMI Calculated 2016-03-11 19:45:00 Memori al Annabella Weight 2016-03-11 19:45:00 [facility] Maciej Respitory Rate 2016-03-06 01:44:00 Memori al Annabella Systolic (mm Hg) 2016-03-06 01:44:00 Eleazar rial Annabella Diastolic (mm Hg) 2016-03-06 01:44:00 Mem orial Annabella Heart Rate 2016-03-06 01:44:00 [facility] Annabella Temperature Oral (F) 2016-03-06 01:44:00 98.1 F [facility] Maciej BMI Calculated 2016-03-05 21:55:00 Memori al Maciej Weight 2016-03-05 21:55:00 [facility] Annabella Systolic (mm Hg) 2016-03-05 21:55:00 Eleazar rial Annabella Diastolic (mm Hg) 2016-03-05 21:55:00 Mem orial Maciej Heart Rate 2016-03-05 21:55:00 [facility] Maciej Height 2016-03-05 21:55:00 152.4 cm [facility] Annabella Temperature Oral (F) 2016-03-05 21:55:00 98.3 F [facility] Maciej Respitory Rate 2016-03-05 21:55:00 Memori al Annabella Respitory Rate 2016-03-01 01:23:00 Memori al Annabella Systolic (mm Hg) 2016-03-01 01:23:00 Eleazar rial Maciej Diastolic (mm Hg) 2016-03-01 01:23:00 Mem orial Annabella Temperature Oral (F) 2016-03-01 01:23:00 98.2 F [facility] Annabella Heart Rate 2016-03-01 01:23:00 [facility] Annabella Respitory Rate 2016-02-29 23:25:00 Memori al Annabella Temperature Oral (F) 2016-02-29 22:27:00 98.3 F [facility] Maciej Heart Rate 2016-02-29 22:27:00 [facility] Annabella Respitory Rate 2016-02-29 22:27:00 Memori al Maciej Systolic (mm Hg) 2016-02-29 22:27:00 Eleazar rial Maciej Diastolic (mm Hg) 2016-02-29 22:27:00 Mem orial Maciej Respitory Rate 2015-09-05 14:47:00 Memori al Maciej Systolic (mm Hg) 2015-09-05 14:47:00 Eleazar rial Annabella Diastolic (mm Hg) 2015-09-05 14:47:00 Mem orial Annabella Heart Rate 2015-09-05 14:47:00 [facility] Maciej Weight 2015-09-05 11:00:00 [facility] Maciej Systolic (mm Hg) 2015-09-05 10:00:00 Eleazar rial Maciej Diastolic (mm Hg) 2015-09-05 10:00:00 Mem orial Maciej Respitory Rate 2015-09-05 10:00:00 Memori al Maciej Heart Rate 2015-09-05 10:00:00 [facility] Maciej Respitory Rate 2015-09-05 06:00:00 Memori al Annabella Systolic (mm Hg) 2015-09-05 06:00:00 Eleazar rial Maciej Diastolic (mm Hg) 2015-09-05 06:00:00 Mem orial Maciej Heart Rate 2015-09-05 06:00:00 [facility] Annabella Weight 2015-09-04 11:00:00 [facility]abella Weight 2015-09-04 09:15:00 [facility] Annabella BMI Calculated 2015-09-04 09:15:00 Memori al Annabella Height 2015-09-04 09:15:00 160.02 cm [facility] Annabella Temperature Oral (F) 2015-09-04 09:06:00 98.3 F [facility] Annabella Height 2015-09-04 03:35:00 152.4 cm [facility] Annabella BMI Calculated 2015-09-04 03:35:00 Memori al Maciej Temperature Oral (F) 2015-09-04 03:35:00 98.7 F [facility] Annabella Systolic (mm Hg) 2015-07-16 13:56:00 Eleazar rial Maciej Diastolic (mm Hg) 2015-07-16 13:56:00 Mem orial Maciej Respitory Rate 2015-07-16 13:56:00 Memori al Maciej Heart Rate 2015-07-16 13:56:00 [facility] Annabella Temperature Oral (F) 2015-07-16 13:56:00 98.0 F [facility] Maciej Systolic (mm Hg) 2015-07-16 13:55:00 Eleazar rial Annabella Diastolic (mm Hg) 2015-07-16 13:55:00 Mem orial Maciej Respitory Rate 2015-07-16 13:55:00 Memori al Maciej Heart Rate 2015-07-16 13:55:00 [facility] Maciej Temperature Oral (F) 2015-07-16 13:55:00 97.4 F [facility] Maciej Systolic (mm Hg) 2015-07-16 10:00:00 Eleazar rial Annabella Diastolic (mm Hg) 2015-07-16 10:00:00 Mem orial Annabella Respitory Rate 2015-07-16 10:00:00 Memori al Annabella Heart Rate 2015-07-16 10:00:00 [facility] Annabella Temperature Oral (F) 2015-07-16 10:00:00 97.9 F [facility]abella Height 2015-07-16 01:30:00 152.4 cm [facility] Maciej Weight 2015-07-16 01:30:00 [facility] Maciej BMI Calculated 2015-07-16 01:30:00 Memori al Annabella Height 2015-07-15 18:10:00 152.4 cm [facility] Annabella BMI Calculated 2015-07-15 18:10:00 Memori al Annabella Weight 2015-07-15 18:10:00 [facility] Maciej Weight 2015-07-05 04:10:00 [facility] Maciej Height 2015-07-05 04:10:00 152.4 cm [facility] Maciej BMI Calculated 2015-07-05 04:10:00 Memori al Annabella Temperature Oral (F) 2015-07-05 04:10:00 98.3 F [facility] Maciej Respitory Rate 2015-07-05 04:10:00 Memori al Maciej Heart Rate 2015-07-05 04:10:00 [facility] Annabella Systolic (mm Hg) 2015-07-05 04:10:00 Eleazar rial Maciej Diastolic (mm Hg) 2015-07-05 04:10:00 Mem orial Annabella BMI Calculated 2015-07-04 18:05:00 [facility] al Annabella Weight 2015-07-04 18:05:00 [facility] Maciej Height 2015-07-04 18:05:00 152.4 cm [facility] Maciej Temperature Oral (F) 2015-07-04 18:05:00 97.9 F [facility] Maciej Respitory Rate 2015-07-04 18:05:00 Memori al Annabella Heart Rate 2015-07-04 18:05:00 [facility] Annabella Systolic (mm Hg) 2015-07-04 18:05:00 Eleazar rial Maciej Diastolic (mm Hg) 2015-07-04 18:05:00 Mem orial Maciej BMI Calculated 2015-06-04 04:13:00 [facility]ori al Maciej Weight 2015-06-04 04:13:00 [facility] Maciej Height 2015-06-04 04:13:00 152.4 cm [facility]abella Temperature Oral (F) 2015-06-04 04:13:00 98.8 F [facility]abella Respitory Rate 2015-06-04 04:13:00 Memori al Maciej Heart Rate 2015-06-04 04:13:00 [facility] Maciej Systolic (mm Hg) 2015-06-04 04:13:00 Eleazar rial Annabella Diastolic (mm Hg) 2015-06-04 04:13:00 Mem orial Annabella Systolic (mm Hg) 2015-05-18 22:47:00 Eleazar rial Maciej Diastolic (mm Hg) 2015-05-18 22:47:00 Mem orial Annabella Temperature Oral (F) 2015-05-18 22:47:00 96.6 F [facility] Maciej Heart Rate 2015-05-18 22:47:00 [facility] Maciej Respitory Rate 2015-05-18 22:47:00 Memori al Annabella Systolic (mm Hg) 2015-05-18 22:30:00 Eleazar rial Maciej Diastolic (mm Hg) 2015-05-18 22:30:00 Mem orial Maciej Systolic (mm Hg) 2015-05-18 21:00:00 Eleazar rial Maciej Diastolic (mm Hg) 2015-05-18 21:00:00 Mem orial Annabella Temperature Oral (F) 2015-05-18 21:00:00 98.1 F [facility] Respitory Rate 2015-05-18 21:00:00 Mem[facility] al Annabella Temperature Oral (F) 2015-05-18 19:21:00 98.2 F [facility] Heart Rate 2015-05-18 19:21:00 [facility] Respitory Rate 2015-05-18 19:21:00 [facility] Annabella Heart Rate 2015-05-18 17:10:00 [facility] Maciej Respitory Rate 2015-05-09 20:00:00 [facility] al Maciej Systolic (mm Hg) 2015-05-09 20:00:00 Eleazar rial Annabella Diastolic (mm Hg) 2015-05-09 20:00:00 [facility] o[facility] Annabella Temperature Oral (F) 2015-05-09 20:00:00 97.5 F [facility] Temperature Oral (F) 2015-05-09 19:10:00 97.5 F [facility]iej Systolic (mm Hg) 2015-05-09 19:10:00 Eleazar rial Maciej Diastolic (mm Hg) 2015-05-09 19:10:00 Mem o[facility] Maciej Respitory Rate 2015-05-09 19:10:00 [facility] al Maciej Systolic (mm Hg) 2015-05-09 18:41:00 Eleazar rial Maciej Diastolic (mm Hg) 2015-05-09 18:41:00 [facility] o[facility] Maciej Weight 2015-05-09 17:37:00 [facility] BMI Calculated 2015-05-09 17:37:00 [facility] al Maciej Height 2015-05-09 17:37:00 152.4 cm [facility] Temperature Oral (F) 2015-05-09 17:37:00 98.9 F [facility] Respitory Rate 2015-05-09 17:37:00 [facility] al Maciej Heart Rate 2015-05-09 17:37:00 [facility] Systolic (mm Hg) 2015-05-03 00:04:00 Eleazar rial Maciej Diastolic (mm Hg) 2015-05-03 00:04:00 [facility] o[facility] Annabella Heart Rate 2015-05-03 00:04:00 [facility] Respitory Rate 2015-05-03 00:04:00 [facility] al Maciej Temperature Oral (F) 2015-05-03 00:04:00 98.5 F [facility] Heart Rate 2015-05-02 21:17:00 [facility] Respitory Rate 2015-05-02 21:17:00 [facility]abella Systolic (mm Hg) 2015-05-02 21:17:00 Eleazar rial Maciej Diastolic (mm Hg) 2015-05-02 21:17:00 [facility] o[facility] Heart Rate 2015-05-02 20:24:00 [facility] Temperature Oral (F) 2015-05-02 20:24:00 98.1 F [facility] Systolic (mm Hg) 2015-05-02 20:24:00 Eleazar rial Annabella Diastolic (mm Hg) 2015-05-02 20:24:00 [facility] o[facility] Maciej Respitory Rate 2015-05-02 20:24:00 [facility] Maciej Temperature Oral (F) 2015-05-02 18:35:00 98.9 F [facility] Systolic (mm Hg) 2015-04-11 19:45:00 Eleazar rial Maciej Diastolic (mm Hg) 2015-04-11 19:45:00 [facility] o[facility] Annabella Temperature Oral (F) 2015-04-11 19:45:00 98.7 F [facility] Respitory Rate 2015-04-11 19:45:00 [facility] Heart Rate 2015-04-11 19:45:00 [facility] Weight 2015-04-11 16:35:00 [facility] Temperature Oral (F) 2015-04-11 16:35:00 98.4 F [facility] Systolic (mm Hg) 2015-04-11 16:35:00 Eleazar rial Maciej Diastolic (mm Hg) 2015-04-11 16:35:00 [facility]abella Respitory Rate 2015-04-11 16:35:00 [facility] Heart Rate 2015-04-11 16:35:00 [facility] Systolic (mm Hg) 2015-03-30 22:06:00 Eleazar rial Maciej Diastolic (mm Hg) 2015-03-30 22:06:00 [facility]abella Temperature Oral (F) 2015-03-30 22:06:00 97.9 F [facility] Heart Rate 2015-03-30 22:06:00 [facility] Respitory Rate 2015-03-30 22:06:00 [facility] Maciej BMI Calculated 2015-03-30 19:44:00 [facility] Height 2015-03-30 19:44:00 152.4 cm [facility] Systolic (mm Hg) 2015-03-30 19:44:00 Eleazar rial Annabella Diastolic (mm Hg) 2015-03-30 19:44:00 [facility] Respitory Rate 2015-03-30 19:44:00 [facility] Heart Rate 2015-03-30 19:44:00 [facility] Weight 2015-03-30 19:44:00 [facility] Temperature Oral (F) 2015-03-30 19:44:00 97.9 F [facility] Respitory Rate 2015-03-24 21:57:00 [facility] Maciej Temperature Oral (F) 2015-03-24 21:57:00 97.9 F [facility] Heart Rate 2015-03-24 21:57:00 [facility] Systolic (mm Hg) 2015-03-24 21:57:00 Eleazar rial Annabella Diastolic (mm Hg) 2015-03-24 21:57:00 [facility] o[facility] Maciej Heart Rate 2015-03-24 17:28:00 [facility] Temperature Oral (F) 2015-03-24 17:28:00 98.8 F [facility] Respitory Rate 2015-03-24 17:28:00 [facility] Maciej Systolic (mm Hg) 2015-03-24 17:28:00 Eleazar rial Maciej Diastolic (mm Hg) 2015-03-24 17:28:00 [facility]iej Heart Rate 2015-03-24 13:08:00 [facility] Temperature Oral (F) 2015-03-24 13:08:00 98.4 F [facility] Respitory Rate 2015-03-24 13:08:00 [facility] Systolic (mm Hg) 2015-03-24 13:08:00 Eleazar rial Maciej Diastolic (mm Hg) 2015-03-24 13:08:00 [facility]iej BMI Calculated 2015-03-22 01:41:00 [facility] Weight 2015-03-22 01:41:00 [facility] Height 2015-03-22 01:41:00 152.4 cm [facility] BMI Calculated 2015-03-21 18:42:00 [facility]iej Weight 2015-03-21 18:42:00 [facility] Height 2015-03-21 18:42:00 152.4 cm [facility] Systolic (mm Hg) 2015-03-11 22:39:00 Eleazar rial Maciej Diastolic (mm Hg) 2015-03-11 22:39:00 [facility] Respitory Rate 2015-03-11 22:39:00 [facility] Heart Rate 2015-03-11 22:39:00 [facility] Temperature Oral (F) 2015-03-11 22:39:00 98.1 F [facility] BMI Calculated 2015-03-11 19:44:00 [facility] Weight 2015-03-11 19:44:00 [facility] Systolic (mm Hg) 2015-03-11 19:44:00 Eleazar rial Annabella Diastolic (mm Hg) 2015-03-11 19:44:00 [facility] Temperature Oral (F) 2015-03-11 19:44:00 97.9 F [facility] Heart Rate 2015-03-11 19:44:00 [facility] Respitory Rate 2015-03-11 19:44:00 [facility] Height 2015-03-11 19:44:00 152.4 cm [facility] Temperature Oral (F) 2015-03-05 10:15:00 97.9 F [facility] Systolic (mm Hg) 2015-03-05 10:15:00 [facility] Diastolic (mm Hg) 2015-03-05 10:15:00 [facility] Respitory Rate 2015-03-05 10:15:00 [facility] Respitory Rate 2015-03-05 09:53:00 [facility] Temperature Oral (F) 2015-03-05 09:53:00 97.8 F [facility] Systolic (mm Hg) 2015-03-05 09:53:00 [facility] Diastolic (mm Hg) 2015-03-05 09:53:00 [facility] Respitory Rate 2015-03-05 06:30:00 [facility] Systolic (mm Hg) 2015-03-05 06:30:00 [facility] Diastolic (mm Hg) 2015-03-05 06:30:00 [facility] Temperature Oral (F) 2015-03-05 06:20:00 97.7 F [facility] Heart Rate 2015-03-05 06:20:00 [facility] Heart Rate 2015-03-05 05:46:00 [facility] Height 2015-03-05 05:46:00 152.4 cm [facility] BMI Calculated 2015-03-05 05:46:00 [facility] Weight 2015-03-05 05:46:00 [facility] Systolic (mm Hg) 2015-02-25 20:55:00 [facility] Diastolic (mm Hg) 2015-02-25 20:55:00 [facility] Temperature Oral (F) 2015-02-25 20:55:00 97.9 F [facility] Heart Rate 2015-02-25 20:55:00 [facility] Respitory Rate 2015-02-25 20:55:00 [facility] Temperature Oral (F) 2015-02-25 17:18:00 98 F [facility] Heart Rate 2015-02-25 17:18:00 [facility] Respitory Rate 2015-02-25 17:18:00 [facility] Systolic (mm Hg) 2015-02-25 17:18:00 [facility] Diastolic (mm Hg) 2015-02-25 17:18:00 [facility] Systolic (mm Hg) 2015-02-25 12:00:00 [facility] Diastolic (mm Hg) 2015-02-25 12:00:00 [facility] Respitory Rate 2015-02-25 12:00:00 [facility] Heart Rate 2015-02-25 12:00:00 [facility] Temperature Oral (F) 2015-02-25 12:00:00 97.8 F [facility] Height 2015-02-24 16:11:00 152.4 cm [facility] BMI Calculated 2015-02-24 16:11:00 [facility] Weight 2015-02-24 16:11:00 [facility] Heart Rate 2015-02-18 20:17:00 [facility] Temperature Oral (F) 2015-02-18 20:17:00 97.3 F [facility] Systolic (mm Hg) 2015-02-18 20:17:00 [facility] Diastolic (mm Hg) 2015-02-18 20:17:00 [facility] Respitory Rate 2015-02-18 20:17:00 [facility] Heart Rate 2015-02-18 16:13:00 [facility] Respitory Rate 2015-02-18 16:13:00 [facility] Systolic (mm Hg) 2015-02-18 16:13:00 [facility] Diastolic (mm Hg) 2015-02-18 16:13:00 [facility] Temperature Oral (F) 2015-02-18 16:13:00 97.5 F [facility] Temperature Oral (F) 2015-02-18 12:19:00 97.9 F [facility] Systolic (mm Hg) 2015-02-18 12:19:00 [facility] Diastolic (mm Hg) 2015-02-18 12:19:00 [facility] Respitory Rate 2015-02-18 12:19:00 [facility] Heart Rate 2015-02-18 12:19:00 [facility] Weight 2015-02-17 02:30:00 [facility] Height 2015-02-17 02:30:00 152.4 cm [facility] BMI Calculated 2015-02-17 02:30:00 [facility] Weight 2015-02-16 20:42:00 [facility] BMI Calculated 2015-02-16 20:42:00 [facility] Height 2015-02-16 20:42:00 152.4 cm [facility] Respitory Rate 2013-12-25 19:27:00 [facility] Heart Rate 2013-12-25 19:27:00 [facility] Diastolic (mm Hg) 2013-12-25 19:27:00 [facility] Systolic (mm Hg) 2013-12-25 19:27:00 [facility] Temperature Oral (F) 2013-12-25 19:27:00 98.3 F [facility] BMI Calculated 2013-12-25 16:48:00 [facility] Weight 2013-12-25 16:48:00 [facility] Height 2013-12-25 16:48:00 152.4 cm [facility] Respitory Rate 2013-12-25 16:48:00 [facility] Heart Rate 2013-12-25 16:48:00 [facility] Diastolic (mm Hg) 2013-12-25 16:48:00 [facility] Systolic (mm Hg) 2013-12-25 16:48:00 [facility] Temperature Oral (F) 2013-12-25 16:48:00 98.8 F [facility] Heart Rate 2013-12-23 00:27:00 [facility] Systolic (mm Hg) 2013-12-23 00:27:00 [facility] Respitory Rate 2013-12-23 00:27:00 [facility] Temperature Oral (F) 2013-12-23 00:27:00 98.3 F [facility] Diastolic (mm Hg) 2013-12-23 00:27:00 [facility] Diastolic (mm Hg) 2013-12-22 23:06:00 [facility] Temperature Oral (F) 2013-12-22 23:06:00 98.4 F [facility] Systolic (mm Hg) 2013-12-22 23:06:00 [facility] Respitory Rate 2013-12-22 23:06:00 [facility] Heart Rate 2013-12-22 23:06:00 [facility] Weight 2013-12-22 20:46:00 [facility] Temperature Oral (F) 2013-12-22 20:46:00 98.7 F [facility] Systolic (mm Hg) 2013-12-22 20:46:00 [facility] Diastolic (mm Hg) 2013-12-22 20:46:00 [facility] Respitory Rate 2013-12-22 20:46:00 [facility] Heart Rate 2013-12-22 20:46:00 [facility] Diastolic (mm Hg) 2013-12-17 20:30:00 [facility] Respitory Rate 2013-12-17 20:30:00 [facility] Systolic (mm Hg) 2013-12-17 20:30:00 Eleazar [facility]iej Systolic (mm Hg) 2013-12-17 19:06:00 [facility] Diastolic (mm Hg) 2013-12-17 19:06:00 [facility] Respitory Rate 2013-12-17 19:06:00 [facility] Systolic (mm Hg) 2013-12-17 18:54:00 [facility] Diastolic (mm Hg) 2013-12-17 18:54:00 [facility] Temperature Oral (F) 2013-12-17 17:09:00 98.1 F [facility] Respitory Rate 2013-12-17 16:50:00 [facility] Temperature Oral (F) 2013-12-17 09:00:00 97.1 F [facility] Height 2013-12-17 02:58:00 152.4 cm [facility] Weight 2013-12-17 02:58:00 [facility] BMI Calculated 2013-12-17 02:58:00 [facility] Temperature Oral (F) 2013-12-17 02:55:00 98.1 F [facility] Height 2013-12-16 17:19:00 152.4 cm [facility] BMI Calculated 2013-12-16 17:19:00 [facility] Weight 2013-12-16 17:19:00 [facility] Heart Rate 2013-12-16 17:19:00 [facility] Temperature Oral (F) 2013-11-08 21:00:00 98 F [facility] Diastolic (mm Hg) 2013-11-08 21:00:00 [facility] Respitory Rate 2013-11-08 21:00:00 [facility] Systolic (mm Hg) 2013-11-08 21:00:00 [facility] Temperature Oral (F) 2013-11-08 19:13:00 97.6 F [facility] Diastolic (mm Hg) 2013-11-08 19:13:00 [facility] Systolic (mm Hg) 2013-11-08 19:13:00 [facility] Respitory Rate 2013-11-08 19:13:00 [facility] Systolic (mm Hg) 2013-11-08 16:18:00 [facility] Respitory Rate 2013-11-08 16:18:00 [facility] Diastolic (mm Hg) 2013-11-08 16:18:00 [facility] Temperature Oral (F) 2013-11-08 11:34:00 99.0 F [facility] Heart Rate 2013-11-08 11:34:00 [facility] Heart Rate 2013-11-08 08:04:00 [facility] BMI Calculated 2013-11-08 [facility] 2013-11-08 04:51:00 152.4 cm [facility] Maciej Weight 2013-11-08 04:51:00 [facility] Heart Rate 2013-11-08 04:51:00 [facility] Procedures Procedure Date / Time Performing Clinician Source Performed [facility]<sup>[facility]</sup> Eleazar rial Annabella Plan of Care Planned Activity Planned Date Details Comments Source Future Scheduled Test 2021-05-29 IMM Influenza Seasonal [facility] 00:00:00 May to October (>/= 19 yrs) [code = IMM Influenza Seasonal May to October (>/= 19 yrs)] Future Scheduled Test 2015 IMM Pneumococcal Age [address] [facility] 00:00:00 and Up [code = IMM Pneumococcal Age 65 and Up] Future Scheduled Test 2000 Screening for malignant [facility] 00:00:00 neoplasm of colon (procedure) [code = 203550668] Future Scheduled Test 1990 Breast Cancer Scrn [facility] 00:00:00 (Yearly) [code = Breast Cancer Scrn (Yearly)] Future Scheduled Test 1962 COVID-19 Vaccine (1) [facility] 00:00:00 [code = COVID-19 Vaccine (1)] Encounters Start End Encounter Admission Attending Care Care Encounter Source Date/Time Date/Time Type Type Clinicians Facility Department ID 2020-10-15 2020-10-15 Emergency [facility] [id number] [facility] 02:02:00 04:45:00 Wilberto Freitas [id number] [place] [id number] [facility] [id number] [address] 2020-10-15 2020-10-15 [facility] [id number] 02:02:00 04:45:00 Wilberto Freitas [id number] [place] [id number] [place] [id number] [facility] 2020-10-15 2020-10-15 [facility] [id number] [facility] 02:02:00 02:02:00 WILBERTO streeter [facility] 2020-01-21 2020-01-21 Outpatient E LEELEE [facility] MED [id number] [facility] 05:31:00 11:30:00 [place] 2019-10-15 2019-10-15 Emergency E BERNARDINO REID MHBL MHBL [id number] MHBL 13:12:00 15:34:00 2019-05-20 2019-05-20 Emergency E [facility] [id number] [facility] 15:19:00 15:19:00 2019-02-25 2019-02-25 Emergency E [facility] [id number] [facility] 10:56:00 10:56:00 2018-08-21 2018-08-21 Emergency [facility] [id number] [place] 18:32:58 18:32:58 Health 2018-08-21 2018-08-21 Emergency [facility] [id number] [place] 17:47:59 17:47:59 [facility] 2018-08-21 2018-08-21 Emergency [facility] [id number] [place] 16:16:06 16:16:06 [facility] 2018-08-16 2018-08-16 Emergency [facility] [id number] [place] 22:04:00 22:04:00 [facility] 2018-08-16 2018-08-16 Emergency [facility] [id number] [place] 21:21:42 21:21:42 Health 2018-05-18 2018-05-18 Emergency [facility] [id number] [place] 14:51:52 14:51:52 [facility] 2018-03-08 2018-03-08 Emergency [facility] [id number] [place] 15:12:17 15:12:17 [facility] 2018-01-16 2018-01-16 Emergency [facility] [id number] [place] [address] 17:53:03 17:53:03 [facility] 2018-01-16 2018-01-16 Emergency [facility] [id number] [place] [address] 00:00:00 00:00:00 [facility] 2018-01-16 2018-01-16 Outpatient [facility] [id number] [place] [address] 00:00:00 00:00:00 [facility] 2017-11-11 2017-11-11 Emergency E [facility] [id number] . 16:37:00 16:37:00 [facility] 2017-01-19 2017-01-19 Emergency [facility] [id number] Memoria 17:18:00 23:37:00 geovanny Wing 34 l [facility] 2017-01-16 2017-01-17 Emergency [facility] [id number] Memoria 23:22:00 02:34:00 geovanny Wing 33 [facility] 2016-11-29 2016-11-29 Emergency [facility] [id number] Memoria 00:17:00 04:13:00 geovanny Wing 32 l [facility] 2016-11-06 2016-11-07 Emergency [facility] [id number] Memoria 23:34:00 03:03:00 geovanny Wing 31 l [facility] 2016-10-10 2016-10-11 Observatio [facility] [id number] Memoria 17:45:00 19:54:00 jay Wing 30 [facility] 2016-09-15 2016-09-15 Emergency [facility] [id number] Memoria 03:19:00 06:56:00 geovanny Wing 29 l [facility] 2016-04-14 2016-04-14 Emergency [facility] [id number] Memoria 02:11:00 06:37:00 geovanny Wing 28 [facility] 2016-03-11 2016-03-12 OBS [facility] [id number] Memoria 19:41:00 20:25:00 Observatio geovanny Wing 27 l n Patient [facility] 2016-03-05 2016-03-06 EC [facility]Flavo [facility] [id number] Memoria 21:54:00 02:21:00 Emergency r Annabella 26 l Center [facility] 2016-02-29 2016-03-01 EC nullFlavo [facility] [id number] Memoria 22:25:00 01:29:00 Emergency r Maciej 25 l Center [facility] 2015-09-04 2015-09-05 OBS nullFlavo [facility] [id number] Memoria 03:30:00 16:26:00 Observatio r Maciej 24 l n Patient [facility] 2015-07-15 2015-07-16 OBS nullFlavo [facility] [id number] Memoria 18:00:00 21:30:00 Observatio r Annabella 23 l n Patient [facility] 2015-07-05 2015-07-05 EC nullFlavo [facility] [id number] Memoria 04:07:00 07:09:00 Emergency r Maciej 22 l [facility] 2015-07-04 2015-07-04 EC nullFlavo [facility] [id number] Memoria 17:57:00 20:54:00 Emergency r Annabella 21 l [facility] 2015-06-04 2015-06-04 EC nullFlavo [facility] [id number] Memoria 04:00:00 07:09:00 Emergency r Annabella 20 l [facility] 2015-05-18 2015-05-18 EC nullFlavo [facility] [id number] Memoria 16:55:00 23:04:00 Emergency r Annabella 19 l [facility] 2015-05-09 2015-05-09 EC nullFlavo [facility] [id number] Memoria 17:15:00 20:10:00 Emergency r Annabella 18 l [facility] 2015-05-02 2015-05-03 EC nullFlavo [facility] [id number] Memoria 18:18:00 00:05:00 Emergency r Maciej 17 l [facility] 2015-04-11 2015-04-11 EC nullFlavo [facility] [id number] Memoria 16:25:00 19:47:00 Emergency r Maciej 16 l [facility] 2015-03-30 2015-03-30 EC nullFlavo [facility] [id number] Memoria 19:39:00 22:11:00 Emergency r Annabella 15 l [facility] 2015-03-21 2015-03-24 Inpatient nullFlavo [facility] [id number] Memoria 18:24:00 22:30:00 r Annabella 14 l [facility] 2015-03-11 2015-03-11 EC nullFlavo [facility] [id number] Memoria 19:43:00 22:41:00 Emergency r Annabella 13 l [facility] 2015-03-05 2015-03-05 EC nullFlavo [facility] [id number] Memoria 05:43:00 10:21:00 Emergency r Annabella 12 l [facility] 2015-02-24 2015-02-26 OBS nullFlavo [facility] [id number] Memoria 15:34:00 01:14:00 Observatio r Annabella 11 l Patient [facility] 2015-02-16 2015-02-18 OBS nullFlavo [facility] [id number] Memoria 20:36:00 21:00:00 Observatio r Annabella 10 [facility] Patient [facility] 2013-12-25 2013-12-25 EC nullFlavo [facility] [id number] Memoria 16:37:00 19:52:00 Emergency r Annabella 09 l [facility] 2013-12-22 2013-12-23 EC nullFlavo [facility] [id number] Memoria 20:43:00 00:29:00 Emergency r Annabella 08 [facility] 2013-12-16 2013-12-17 OBS nullFlavo [facility] [id number] Memoria 17:18:00 22:45:00 Observatio r Maciej 07 l [facility] 2013-11-08 2013-11-08 OBS nullFlavo [facility] [id number] Memoria 04:50:00 23:00:00 Observatio r Annabella [id number] [facility] Patient [address] Results Test Description Test Time Test [...] UA Color (test code = UA Color) [facility] [id number] 19:21:00 Test Item Value Reference Range Interpretation Comments UA Urobilinogen (test code = UA <=1.0 mg/dL 0.1-1.0 Urobilinogen) [facility] AND [id number] 19:21:00 Test Item Value Reference Range Interpretation Comments UA Ketones (test code = UA Negative mg/dL Ketones) [facility] AND [id number] 19:21:00 Test Item Value Reference Range Interpretation Comments UA Bili (test code = Negative *NA*(01/19/17 UA Bili) 2:21 PM) [facility] AND [id number] 19:21:00 Test Item Value Reference Range Interpretation Comments UA Glucose (test code = UA Negative mg/dL Glucose) [facility] AND [id number] 19:21:00 Test Item Value Reference Range Interpretation Comments UA Protein (test code = UA Negative mg/dL Protein) [facility] AND [id number] 19:21:00 Test Item Value Reference Range Interpretation Comments UA Leuk Est (test Negative (01/19/17 2:21 code = UA Leuk Est) PM) [facility] AND [id number] 19:21:00 Test Item Value Reference Range Interpretation Comments UA Nitrite (test code Negative (01/19/17 2:21 = UA Nitrite) PM) [facility] AND [id number] 19:21:00 Test Item Value Reference Range Interpretation Comments UA Blood (test code = Negative (01/19/17 2:21 UA Blood) PM) [facility] AND [id number] 19:21:00 Test Item Value Reference Range Interpretation Comments UA RBC (test code = 1 See_Comment [Automa marcelle message] The UA RBC) system which ge nerated this result transmit marcelle reference range : <=2. The reference range was not used to interpr et this result as aranza l/abnormal. [facility] AND [id number] 19:21:00 Test Item Value Reference Range Interpretation Comments UA WBC (test code = 1 See_Comment [Automa marcelle message] The UA WBC) system which ge nerated this result transmit marcelle reference range : <=5. The reference range was not used to interpr et this result as aranza l/abnormal. [facility] AND [id number] 19:21:00 Test Item Value Reference Range Interpretation Comments UA Sq Epi (test code = UA Sq Epi) Few /LPF [facility] AND [id number] 19:21:00 Test Item Value Reference Range Interpretation Comments UA pH (test code = UA pH) 7.0 5.0-8.0 [facility] AND [id number] 19:21:00 Test Item Value Reference Range Interpretation Comments UA Spec Grav (test code = UA Spec Grav) 1.008 [facility] AND [id number] 19:21:00 Test Item Value Reference Range Interpretation Comments UA Turbidity (test code = Clear (01/19/17 2:21 UA Turbidity) PM) [facility] [id number] 18:07:00 Test Item Value Reference Range Interpretation Comments CK MB (test code = CK MB) 3.0 0.5-3.6 [facility] [id number] 18:07:00 Test Item Value Reference Range Interpretation Comments Troponin-I (test code no gt See_Comment [Auto mated message] The = Troponin-I) system which g enerated this result transmit marcelle reference range : <=0.40. The reference r melody was not used to interpr et this result as aranza l/abnormal. [facility] [employer]CHE[employer] [id number] 18:07:00 Test Item Value Reference Range Interpretation Comments Lipase Lvl (test code = Lipase Lvl) 231 73-393 [facility]2017-05-24 18:07:00 Test Item Value Reference Range Interpretation Comments B/C Ratio (test code = B/C Ratio) 9 6-25 [facility]2017-05-24 18:07:00 Test Item Value Reference Range Interpretation Comments AGAP (test code = AGAP) 8.4 10.0-20.0 [facility]2017-05-24 18:07:00 Test Item Value Reference Range Interpretation Comments A/G Ratio (test code = A/G Ratio) 1.0 0.7-1.6 [facility]2017-05-24 18:07:00 Test Item Value Reference Range Interpretation Comments Globulin (test code = Globulin) 3.6 2.7-4.2 [facility]2017-05-24 18:07:00 Test Item Value Reference Range Interpretation Comments BUN (test code = BUN) 7 7- [facility]2017-05-24 18:07:00 Test Item Value Reference Range Interpretation Comments CO2 (test code = CO2) 32 24-32 [facility]2017-05-24 18:07:00 Test Item Value Reference Range Interpretation Comments Chloride Lvl (test code = Chloride Lvl) 104 95-109 [facility]2017-05-24 18:07:00 Test Item Value Reference Range Interpretation Comments Potassium Lvl (test code = Potassium 3.4 3.5-5.1 Lvl) [facility]2017-05-24 18:07:00 Test Item Value Reference Range Interpretation Comments Sodium Lvl (test code = Sodium Lvl) 141 135-145 [facility]2017-05-24 18:07:00 Test Item Value Reference Range Interpretation Comments Creatinine Lvl (test code = Creatinine 0.79 0.50-1.40 Lvl) [facility]2017-05-24 18:07:00 Test Item Value Reference Range Interpretation Comments Albumin Lvl (test code = Albumin Lvl) 3.6 3.5-5.0 [facility]2017-05-24 18:07:00 Test Item Value Reference Range Interpretation Comments Calcium Lvl (test code = Calcium Lvl) 9.1 8.5-10.5 [facility]2017-05-24 18:07:00 Test Item Value Reference Range Interpretation Comments ALT (test code = ALT) 25 See_Comment [Auto mated message] The system which ge nerated this result transmit marcelle reference range : <=65. The reference range was not used to interpr et this result as aranza l/abnormal. [place] [id number] 18:07:00 Test Item Value Reference Range Interpretation Comments Total Protein (test code = Total 7.2 6.4-8.4 Protein) [facility]2017-05-24 18:07:00 Test Item Value Reference Range Interpretation Comments Bili Total (test code = Bili Total) 1.1 0.2-1.3 [place] [id number] 18:07:00 Test Item Value Reference Range Interpretation Comments Alk Phos (test code = Alk Phos) 111 39-136 [facility]2017-05-24 18:07:00 Test Item Value Reference Range Interpretation Comments AST (test code = AST) 31 See_Comment [Auto mated message] The system which ge nerated this result transmit marcelle reference range : <=37. The reference range was not used to interpr et this result as aranza l/abnormal. [place] [id number] 18:07:00 Test Item Value Reference Range Interpretation Comments eGFR (test code = eGFR) 90 [facility]2017-05-24 18:07:00 Test Item Value Reference Range Interpretation Comments Glucose Lvl (test code = Glucose Lvl) 73 70-99 [place] [id number] 18:07:00 Test Item Value Reference Range Interpretation Comments Amylase Lvl (test code = Amylase Lvl) 75 25-115 [id number] 18:07:00 Test Item Value Reference Range Interpretation Comments PTT (test code = PTT) 31.3 s 22.9-35.8 [place] [id number] 18:07:00 Test Item Value Reference Range Interpretation Comments MPV (test code = MPV) 8.5 7.4-10.4 [place] [id number] 18:07:00 Test Item Value Reference Range Interpretation Comments Hct (test code = Hct) 42.0 36.0-48.0 [facility] [id number] 18:07:00 Test Item Value Reference Range Interpretation Comments RBC (test code = RBC) 4.92 4.20-5.40 [place] [id number] 18:07:00 Test Item Value Reference Range Interpretation Comments Hgb (test code = Hgb) 14.4 12.0-16.0 [facility] [id number] 18:07:00 Test Item Value Reference Range Interpretation Comments RDW (test code = RDW) 14.2 11.5-14.5 [facility] [id number] 18:07:00 Test Item Value Reference Range Interpretation Comments Platelet (test code = Platelet) 236 133-450 [facility] H[id number] 18:07:00 Test Item Value Reference Range Interpretation Comments MCHC (test code = MCHC) 34.2 32.0-36.0 [facility] [id number] 18:07:00 Test Item Value Reference Range Interpretation Comments MCH (test code = MCH) 29.2 pg 27.0-31.0 [facility] [id number] 18:07:00 Test Item Value Reference Range Interpretation Comments MCV (test code = MCV) 85.5 80.0-98.0 [facility] [id number] 18:07:00 Test Item Value Reference Range Interpretation Comments WBC (test code = WBC) 7.7 3.7-10.4 [facility] [id number] 18:07:00 Test Item Value Reference Range Interpretation Comments PT (test code = PT) 13.7 s 12.0-14.7 [facility] [id number] 18:07:00 Test Item Value Reference Range Interpretation Comments INR (test code = INR) 1.03 0.85-1.17 [facility] [id number] 18:07:00 Test Item Value Reference Range Interpretation Comments Eosinophils # (test code 0.3 See_Comment [A utomated message] The = Eosinophils #) system whic h generated this result tra nsmitted reference range : <=0.5. The reference r melody was not used to int erpret this result as normal/abnormal . [id number] 18:07:00 Test Item Value Reference Range Interpretation Comments Segs (test code = Segs) 68.3 45.0-75.0 [facility] Ho[id number] 18:07:00 Test Item Value Reference Range Interpretation Comments Monocytes # (test code 0.6 See_Comment [Aut omated message] The = Monocytes #) system which generated this result tra nsmitted reference range : <=0.8. The reference r melody was not used to int erpret this result as normal/abnormal . [facility] HospitalCmapsmgTAPTEWVJFL4450-03-58 18:07:00 Test Item Value Reference Range Interpretation Comments Segs-Bands # (test code = Segs-Bands #) 5.3 1.5-8.1 [facility] Ho[id number] 18:07:00 Test Item Value Reference Range Interpretation Comments Eosinophils (test code = 4.5 See_Comment [A utomated message] The Eosinophils) system which ge nerated this result tra nsmitted reference range : <=4.0. The reference r melody was not used to int erpret this result as normal/abnormal . [facility] HospitalUmrpuduPEQXLTCTMJ4715-34-14 18:07:00 Test Item Value Reference Range Interpretation Comments Basophils (test code = 0.6 See_Comment [Aut omated message] The Basophils) system which ge nerated this result tra nsmitted reference range : <=1.0. The reference r melody was not used to int erpret this result as normal/abnormal . [facility] Hos[id number] 18:07:00 Test Item Value Reference Range Interpretation Comments Lymphocytes # (test code = Lymphocytes 1.4 1.0-5.5 #) [facility] Hos[id number] 18:07:00 Test Item Value Reference Range Interpretation Comments Monocytes (test code = Monocytes) 7.8 2.0-12.0 [facility] H[id number] 18:07:00 Test Item Value Reference Range Interpretation Comments Lymphocytes (test code = Lymphocytes) 18.8 20.0-40.0 [facility]2017-05-22 00:23:00 Test Item Value Reference Range Interpretation Comments U Cocaine Scr (test Positive *ABN*(01/16/17 code = U Cocaine Scr) 7:23 PM) [facility] [id number] 00:23:00 Test Item Value Reference Range Interpretation Comments U Phencyc Scr (test Negative *NA*(01/16/17 code = U Phencyc Scr) 7:23 PM) [facility] [id number] 00:23:00 Test Item Value Reference Range Interpretation Comments U Cannab Scr (test Negative *NA*(01/16/17 code = U Cannab Scr) 7:23 PM) [facility] [id number] 00:23:00 Test Item Value Reference Range Interpretation Comments U Opiate Scr (test Negative *NA*(01/16/17 code = U Opiate Scr) 7:23 PM) [facility] [id number] 00:23:00 Test Item Value Reference Range Interpretation Comments UDS Note (test code = See Note (01/16/17 7:23 UDS Note) PM) [facility] [id number] 00:23:00 Test Item Value Reference Range Interpretation Comments U Keyla Scr (test code Negative *NA*(01/16/17 = U Keyla Scr) 7:23 PM) [facility] [id number] 00:23:00 Test Item Value Reference Range Interpretation Comments U Amph Scr (test code Negative *NA*(01/16/17 = U Amph Scr) 7:23 PM) [facility] [id number] 00:23:00 Test Item Value Reference Range Interpretation Comments U Benzodia Scr (test Negative *NA*(01/16/17 code = U Benzodia Scr) 7:23 PM) [facility] [id number] 00:23:00 Test Item Value Reference Range Interpretation Comments UA Ketones (test code Negative *NA*(01/16/17 = UA Ketones) 7:23 PM) [facility] [id number] 00:23:00 Test Item Value Reference Range Interpretation Comments UA Bili (test code = Negative *NA*(01/16/17 UA Bili) 7:23 PM) [facility] [id number] 00:23:00 Test Item Value Reference Range Interpretation Comments UA Glucose (test code Negative (01/16/17 7:23 = UA Glucose) PM) [facility] AND [id number] 00:23:00 Test Item Value Reference Range Interpretation Comments UA Nitrite (test code Negative (01/16/17 7:23 = UA Nitrite) PM) [facility] AND [id number] 00:23:00 Test Item Value Reference Range Interpretation Comments UA Leuk Est (test Negative (01/16/17 7:23 code = UA Leuk Est) PM) [facility] AND [id number] 00:23:00 Test Item Value Reference Range Interpretation Comments UA Urobilinogen (test code = UA 1.0 0.1-1.0 Urobilinogen) [facility] AND [id number] 00:23:00 Test Item Value Reference Range Interpretation Comments UA Blood (test code = Negative (01/16/17 7:23 UA Blood) PM) [facility] AND [id number] 00:23:00 Test Item Value Reference Range Interpretation Comments UA Turbidity (test code Slight Cloudy = UA Turbidity) (01/16/17 7:23 PM) [facility] AND [id number] 00:23:00 Test Item Value Reference Range Interpretation Comments UA Spec Grav (test code = UA Spec 1.007 1 Grav) [facility] AND [id number] 00:23:00 Test Item Value Reference Range Interpretation Comments UA pH (test code = UA pH) 6.0 1 5.0-8.0 [facility] AND [id number] 00:23:00 Test Item Value Reference Range Interpretation Comments UA Protein (test code Negative (01/16/17 7:23 = UA Protein) PM) [facility] AND [id number] 00:23:00 Test Item Value Reference Range Interpretation Comments UA Color (test code = Yellow *NA*(01/16/17 UA Color) 7:23 PM) [facility] AND [id number] 00:23:00 Test Item Value Reference Range Interpretation Comments UA RBC (test code = 0-2 /HPF See_Comment [Automa marcelle message] The UA RBC) system which ge nerated this result tra nsmitted reference range : <=2. The reference range was not used to interpr et this result as aranza l/abnormal. [facility] AND [id number] 00:23:00 Test Item Value Reference Range Interpretation Comments UA Bacteria (test code = UA Few /HPF Bacteria) [facility] [id number] 00:23:00 Test Item Value Reference Range Interpretation Comments UA WBC (test code = UA WBC) 0-2 /HPF [facility] [id number] 00:23:00 Test Item Value Reference Range Interpretation Comments UA Sq Epi (test code = UA Sq Epi) Few /LPF [facility]annCARDIAC [id number] 23:57:00 Test Item Value Reference Range Interpretation Comments Troponin-I (test code no gt See_Comment [Auto mated message] The = Troponin-I) system which g enerated this result transmit marcelle reference range : <=0.40. The reference r melody was not used to interpr et this result as aranza l/abnormal. [facility] [employer] [id number] 23:57:00 Test Item Value Reference Range Interpretation Comments CK MB (test code = CK MB) 2.0 0.5-3.6 [facility] CenterNeurocrine BiosciencesCARStreetlifeAC [id number] 23:57:00 Test Item Value Reference Range Interpretation Comments Total CK (test code = Total CK) 208 12-191 [facility] CenterSenstoreAC [id number] 23:57:00 Test Item Value Reference Range Interpretation Comments CK MB Index (test 1.0 See_Comment [Automate d message] The code = CK MB Index) system w [facility] generated this result transmit marcelle reference range : <=2.5. The reference range was not used to interpr et this result as aranza l/abnormal. [facility] [employer] [id number] 23:57:00 Test Item Value Reference Range Interpretation Comments eGFR (test code = eGFR) 73 [facility] [employer] [id number] 23:57:00 Test Item Value Reference Range Interpretation Comments CO2 (test code = CO2) 29 24-32 [facility] [employer] [id number] 23:57:00 Test Item Value Reference Range Interpretation Comments Sodium Lvl (test code = Sodium Lvl) 142 135-145 [facility] [employer] [id number] 23:57:00 Test Item Value Reference Range Interpretation Comments Glucose Lvl (test code = Glucose Lvl) 105 70-99 [facility]2017-05-21 23:57:00 Test Item Value Reference Range Interpretation Comments BUN (test code = BUN) 15 7-22 [facility]2017-05-21 23:57:00 Test Item Value Reference Range Interpretation Comments AGAP (test code = AGAP) 11.0 10.0-20.0 [facility]2017-05-21 23:57:00 Test Item Value Reference Range Interpretation Comments B/C Ratio (test code = B/C Ratio) 16 6-25 [place] 661907-05-21 23:57:00 Test Item Value Reference Range Interpretation Comments Calcium Lvl (test code = Calcium Lvl) 9.4 8.5-10.5 [facility]2017-05-21 23:57:00 Test Item Value Reference Range Interpretation Comments Creatinine Lvl (test code = Creatinine 0.94 0.50-1.40 Lvl) [facility]2017-05-21 23:57:00 Test Item Value Reference Range Interpretation Comments Chloride Lvl (test code = Chloride Lvl) 106 95-109 [facility]2017-05-21 23:57:00 Test Item Value Reference Range Interpretation Comments Potassium Lvl (test code = Potassium 4.0 3.5-5.1 Lvl) [facility]2017-05-21 23:57:00 Test Item Value Reference Range Interpretation Comments Albumin Lvl (test code = Albumin Lvl) 3.6 3.5-5.0 [facility]2017-05-21 23:57:00 Test Item Value Reference Range Interpretation Comments ALT (test code = ALT) 24 See_Comment [Auto mated message] The system which ge nerated this result transmit marcelle reference range : <=65. The reference range was not used to interpr et this result as aranza l/abnormal. [facility]2017-05-21 23:57:00 Test Item Value Reference Range Interpretation Comments Bili Total (test code = Bili Total) 0.6 0.2-1.3 [facility]2017-05-21 23:57:00 Test Item Value Reference Range Interpretation Comments Alk Phos (test code = Alk Phos) 107 39-136 [place] 661907-05-21 23:57:00 Test Item Value Reference Range Interpretation Comments AST (test code = AST) 29 See_Comment [Auto mated message] The system which ge nerated this result transmit marcelle reference range : <=37. The reference range was not used to interpr et this result as aranza l/abnormal. [place] 661907-05-21 23:57:00 Test Item Value Reference Range Interpretation Comments A/G Ratio (test code = A/G Ratio) 0.9 0.7-1.6 [facility]2017-05-21 23:57:00 Test Item Value Reference Range Interpretation Comments Globulin (test code = Globulin) 3.9 2.7-4.2 [facility]2017-05-21 23:57:00 Test Item Value Reference Range Interpretation Comments Total Protein (test code = Total 7.5 6.4-8.4 Protein) [facility] [id number] 23:57:00 Test Item Value Reference Range Interpretation Comments Hgb (test code = Hgb) 14.6 12.0-16.0 [place] [id number] 23:57:00 Test Item Value Reference Range Interpretation Comments Hct (test code = Hct) 42.7 36.0-48.0 [facility] HospitalDrmhwolDUDMBABEFK3816-08-21 23:57:00 Test Item Value Reference Range Interpretation Comments MCHC (test code = MCHC) 34.2 32.0-36.0 [facility] H[id number] 23:57:00 Test Item Value Reference Range Interpretation Comments MCV (test code = MCV) 85.3 80.0-98.0 [facility] HospitalOvkqotbHAFHMJJHBU7095-83-77 23:57:00 Test Item Value Reference Range Interpretation Comments MCH (test code = MCH) 29.2 pg 27.0-31.0 [facility] HospitalQqnrnsdVEYACVMBTB0511-97-57 23:57:00 Test Item Value Reference Range Interpretation Comments RDW (test code = RDW) 14.3 11.5-14.5 [place] 030397-05-21 23:57:00 Test Item Value Reference Range Interpretation Comments Platelet (test code = Platelet) 227 133-450 [facility] Hos[id number] 23:57:00 Test Item Value Reference Range Interpretation Comments MPV (test code = MPV) 8.0 7.4-10.4 [facility] HospitalYtbtvegSTNDTHHZGS8160-85-12 23:57:00 Test Item Value Reference Range Interpretation Comments WBC (test code = WBC) 6.6 3.7-10.4 [place] [address]-05-21 23:57:00 Test Item Value Reference Range Interpretation Comments RBC (test code = RBC) 5.00 4.20-5.40 [place] [address]-05-21 23:57:00 Test Item Value Reference Range Interpretation Comments Basophils (test code = 0.8 See_Comment [Aut omated message] The Basophils) system which ge nerated this result tra nsmitted reference range : <=1.0. The reference r melody was not used to int erpret this result as normal/abnormal . [place] [address]-05-21 23:57:00 Test Item Value Reference Range Interpretation Comments Segs-Bands # (test code = Segs-Bands #) 4.0 1.5-8.1 [facility] Hospit[id number] 23:57:00 Test Item Value Reference Range Interpretation Comments Monocytes # (test code 0.5 See_Comment [Aut omated message] The = Monocytes #) system which generated this result tra nsmitted reference range : <=0.8. The reference r melody was not used to int erpret this result as normal/abnormal . [facility] HospitalGgxjaanAZSJLETWCM8242-16-98 23:57:00 Test Item Value Reference Range Interpretation Comments Basophils # (test code 0.1 See_Comment [Aut omated message] The = Basophils #) system which generated this result tra nsmitted reference range : <=0.2. The reference r melody was not used to int erpret this result as normal/abnormal . [facility] HospitalTgkcnzuFANZJIIYLK8156-77-76 23:57:00 Test Item Value Reference Range Interpretation Comments Lymphocytes # (test code = Lymphocytes 1.8 1.0-5.5 #) [facility] HospitalNoyljuhJYUFAOSTGO0108-68-07 23:57:00 Test Item Value Reference Range Interpretation Comments Eosinophils # (test code 0.2 See_Comment [A utomated message] The = Eosinophils #) system whic h generated this result tra nsmitted reference range : <=0.5. The reference r melody was not used to int erpret this result as normal/abnormal . [facility] HospitalJsssifsZSYQZAPOUQ1009-10-36 23:57:00 Test Item Value Reference Range Interpretation Comments Segs (test code = Segs) 60.6 45.0-75.0 [facility] HospitalXgxefkhJZCSNBCZZL2922-57-81 23:57:00 Test Item Value Reference Range Interpretation Comments Monocytes (test code = Monocytes) 8.3 2.0-12.0 [facility] HospitalEuuzeuzXPUTGBCTLB0848-08-53 23:57:00 Test Item Value Reference Range Interpretation Comments Eosinophils (test code = 3.5 See_Comment [A utomated message] The Eosinophils) system which ge nerated this result tra nsmitted reference range : <=4.0. The reference r melody was not used to int erpret this result as normal/abnormal . [facility] HospitalWpselrbXMKNSNOGKJ2369-02-15 23:57:00 Test Item Value Reference Range Interpretation Comments Lymphocytes (test code = Lymphocytes) 26.8 20.0-40.0 [facility]2017-04-03 02:18:00 Test Item Value Reference Range Interpretation Comments UA Ketones (test code Negative *NA*(11/28/16 = UA Ketones) 9:18 PM) [facility] AND [id number] 02:18:00 Test Item Value Reference Range Interpretation Comments UA Blood (test code = Negative (11/28/16 9:18 UA Blood) PM) [facility] AND [id number] 02:18:00 Test Item Value Reference Range Interpretation Comments UA Urobilinogen (test code = UA 1.0 0.1-1.0 Urobilinogen) [facility] AND [id number] 02:18:00 Test Item Value Reference Range Interpretation Comments UA Nitrite (test code Negative (11/28/16 9:18 = UA Nitrite) PM) [facility] AND [id number] 02:18:00 Test Item Value Reference Range Interpretation Comments UA WBC (test code = UA WBC) 6-10 /HPF [facility] AND [id number] 02:18:00 Test Item Value Reference Range Interpretation Comments UA RBC (test code = 0-2 /HPF See_Comment [Automa marcelle message] The UA RBC) system which ge nerated this result tra nsmitted reference range : <=2. The reference range was not used to interpr et this result as aranza l/abnormal. [facility] AND [id number] 02:18:00 Test Item Value Reference Range Interpretation Comments UA Bili (test code = Negative *NA*(11/28/16 UA Bili) 9:18 PM) [facility] AND [id number] 02:18:00 Test Item Value Reference Range Interpretation Comments UA Bacteria (test code = UA Occasional /HPF Bacteria) [facility] AND [id number] 02:18:00 Test Item Value Reference Range Interpretation Comments UA Sq Epi (test code = UA Sq Occasional /LPF Epi) [facility] AND [id number] 02:18:00 Test Item Value Reference Range Interpretation Comments UA Leuk Est (test Moderate *ABN*(11/28/16 code = UA Leuk Est) 9:18 PM) [facility] AND [id number] 02:18:00 Test Item Value Reference Range Interpretation Comments UA Color (test code = Yellow *NA*(11/28/16 9:18 UA Color) PM) [facility] AND [id number] 02:18:00 Test Item Value Reference Range Interpretation Comments UA pH (test code = UA pH) 6.0 1 5.0-8.0 [facility] AND [id number] 02:18:00 Test Item Value Reference Range Interpretation Comments UA Protein (test code Negative (11/28/16 9:18 = UA Protein) PM) [facility] AND [id number] 02:18:00 Test Item Value Reference Range Interpretation Comments UA Glucose (test code Negative (11/28/16 9:18 = UA Glucose) PM) [facility] AND [id number] 02:18:00 Test Item Value Reference Range Interpretation Comments UA Spec Grav (test code *NA*(11/28/16 9:18 PM) = UA Spec Grav) [facility] AND [id number] 02:18:00 Test Item Value Reference Range Interpretation Comments UA Turbidity (test code = Clear (11/28/16 9:18 UA Turbidity) PM) [facility]annCARDIAC [id number] 01:37:00 Test Item Value Reference Range Interpretation Comments Troponin-I (test code no gt See_Comment [Auto mated message] The = Troponin-I) system which g enerated this result transmit marcelle reference range : <=0.40. The reference r melody was not used to interpr et this result as aranza l/abnormal. [facility] [employer] [id number] 01:37:00 Test Item Value Reference Range Interpretation Comments CK MB (test code = CK MB) 1.3 0.5-3.6 [facility] [employer] [id number] 01:37:00 Test Item Value Reference Range Interpretation Comments Total CK (test code = Total CK) 89 12-191 [facility] CenterRefurrl [id number] 01:37:00 Test Item Value Reference Range Interpretation Comments CK-MB INDEX (test 1.5 See_Comment [Automate d message] The code = CK-MB INDEX) system w [facility] generated this result transmit marcelle reference range : <=2.5. The reference range was not used to interpr et this result as aranza l/abnormal. [facility] [employer]2017-04-03 01:37:00 Test Item Value Reference Range Interpretation Comments Globulin (test code = Globulin) 3.9 2.7-4.2 [facility] [employer] [id number] 01:37:00 Test Item Value Reference Range Interpretation Comments eGFR (test code = eGFR) 50 [facility] [employer] [id number] 01:37:00 Test Item Value Reference Range Interpretation Comments A/G Ratio (test code = A/G Ratio) 0.9 0.7-1.6 [facility] [employer] [id number] 01:37:00 Test Item Value Reference Range Interpretation Comments ALANINE AMINOTRANSFERASE 24 See_Comment [A utomated message] (test code = ALANINE The sys tem which AMINOTRANSFERASE) generated this result transmitted ref erence range: <=65. Th e reference range was not used to int erpret this result as normal/abnormal . [facility] [employer]2017-04-03 01:37:00 Test Item Value Reference Range Interpretation Comments Albumin Lvl (test code = Albumin Lvl) 3.7 3.5-5.0 [facility] [employer]2017-04-03 01:37:00 Test Item Value Reference Range Interpretation Comments Alk Phos (test code = Alk Phos) 89 39-136 [facility]2017-04-03 01:37:00 Test Item Value Reference Range Interpretation Comments Glucose Lvl (test code = Glucose Lvl) 112 70-99 [facility]2017-04-03 01:37:00 Test Item Value Reference Range Interpretation Comments BUN (test code = BUN) 10 7-22 [facility]2017-04-03 01:37:00 Test Item Value Reference Range Interpretation Comments Creatinine Lvl (test code = Creatinine 1.28 0.50-1.40 Lvl) [facility]2017-04-03 01:37:00 Test Item Value Reference Range Interpretation Comments CO2 (test code = CO2) 30 24-32 [facility]2017-04-03 01:37:00 Test Item Value Reference Range Interpretation Comments Chloride Lvl (test code = Chloride Lvl) 103 95-109 [facility]2017-04-03 01:37:00 Test Item Value Reference Range Interpretation Comments Calcium Lvl (test code = Calcium Lvl) 9.5 8.5-10.5 [facility]2017-04-03 01:37:00 Test Item Value Reference Range Interpretation Comments AGAP (test code = AGAP) 9.5 10.0-20.0 [facility]2017-04-03 01:37:00 Test Item Value Reference Range Interpretation Comments B/C Ratio (test code = B/C Ratio) 8 6-25 [facility]2017-04-03 01:37:00 Test Item Value Reference Range Interpretation Comments Bili Total (test code = Bili Total) 0.7 0.2-1.3 [facility]2017-04-03 01:37:00 Test Item Value Reference Range Interpretation Comments Sodium Lvl (test code = Sodium Lvl) 139 135-145 [facility]2017-04-03 01:37:00 Test Item Value Reference Range Interpretation Comments Potassium Lvl (test code = Potassium 3.5 3.5-5.1 Lvl) [facility]2017-04-03 01:37:00 Test Item Value Reference Range Interpretation Comments Total Protein (test code = Total 7.6 6.4-8.4 Protein) [facility]2017-04-03 01:37:00 Test Item Value Reference Range Interpretation Comments ASPARTATE TRANSAMINASE 14 See_Comment [Aut omated message] (test code = ASPARTATE The s ystem which TRANSAMINASE) generated this result transmitted ref erence range: <=37. Th e reference range was not used to interpr et this result as normal/abnormal . [facility] H[id number] 01:10:00 Test Item Value Reference Range Interpretation Comments MCHC (test code = MCHC) 33.4 32.0-36.0 [facility] H[id number] 01:10:00 Test Item Value Reference Range Interpretation Comments Platelet (test code = Platelet) 261 133-450 [facility] HospitalRqboumcVTSPYYKJUC8724-11-73 01:10:00 Test Item Value Reference Range Interpretation Comments RDW (test code = RDW) 14.7 11.5-14.5 [facility] Ho[id number] 01:10:00 Test Item Value Reference Range Interpretation Comments MPV (test code = MPV) 8.1 7.4-10.4 [facility] HospitalBpujeayZQAKADAHEP3097-02-52 01:10:00 Test Item Value Reference Range Interpretation Comments RBC X 10x6 (test code = RBC X 10x6) 5.34 4.20-5.40 [facility] Ho[id number] 01:10:00 Test Item Value Reference Range Interpretation Comments Hgb (test code = Hgb) 15.5 12.0-16.0 [facility] HospitalZswllezJKWCXBDCDC2717-06-35 01:10:00 Test Item Value Reference Range Interpretation Comments MCV (test code = MCV) 87.0 80.0-98.0 [facility] HospitalBdnlphcHLUEULKFHN3581-18-66 01:10:00 Test Item Value Reference Range Interpretation Comments Hct (test code = Hct) 46.4 36.0-48.0 [id number] 01:10:00 Test Item Value Reference Range Interpretation Comments MCH (test code = MCH) 29.1 pg 27.0-31.0 [facility] HospitalXmihyonMJOYVWJBBH8572-85-18 01:10:00 Test Item Value Reference Range Interpretation Comments WBC X 10x3 (test code = WBC X 10x3) 8.0 3.7-10.4 [facility] HospitalJgfbrcwYOLCHDHHHO5891-21-35 01:10:00 Test Item Value Reference Range Interpretation Comments Basophils # (test code 0.1 See_Comment [Aut omated message] The = Basophils #) system which generated this result tra nsmitted reference range : <=0.2. The reference r melody was not used to int erpret this result as normal/abnormal . [facility] HospitalPqictdjVMAIXPLGBX4018-73-05 01:10:00 Test Item Value Reference Range Interpretation Comments Lymphocytes # (test code = Lymphocytes 2.0 1.0-5.5 #) [facility] HospitalIxqbhtgWWJMDKXFYP8363-18-66 01:10:00 Test Item Value Reference Range Interpretation Comments Segs-Bands # (test code = Segs-Bands #) 5.1 1.5-8.1 [facility] HospitalQvpluwvUTJYZENMRO8394-68-15 01:10:00 Test Item Value Reference Range Interpretation Comments Eosinophils # (test code 0.2 See_Comment [A utomated message] The = Eosinophils #) system whic h generated this result tra nsmitted reference range : <=0.5. The reference r melody was not used to int erpret this result as normal/abnormal . [facility] HospitalKznlhcbBJVPOLGVCC2676-57-21 01:10:00 Test Item Value Reference Range Interpretation Comments Monocytes # (test code 0.8 See_Comment [Aut omated message] The = Monocytes #) system which generated this result tra nsmitted reference range : <=0.8. The reference r melody was not used to int erpret this result as normal/abnormal . [facility] HospitalXqtrzufECXKTESYFR6711-13-16 01:10:00 Test Item Value Reference Range Interpretation Comments Segs (test code = Segs) 63.2 45.0-75.0 [facility] HospitalTujxipiDPPNISTGMB7975-12-62 01:10:00 Test Item Value Reference Range Interpretation Comments Lymphocytes (test code = Lymphocytes) 24.3 20.0-40.0 [facility] HospitalAauvwonLXUQGSCLCG8260-12-24 01:10:00 Test Item Value Reference Range Interpretation Comments Eosinophils (test code = 2.1 See_Comment [A utomated message] The Eosinophils) system which ge nerated this result tra nsmitted reference range : <=4.0. The reference r melody was not used to int erpret this result as normal/abnormal . [facility] HospitalKbrprwfGGSSKVVXQH6366-81-73 01:10:00 Test Item Value Reference Range Interpretation Comments Monocytes (test code = Monocytes) 9.6 2.0-12.0 [facility]YvsfzdaYSFUGKIAZT0999-20-19 01:10:00 Test Item Value Reference Range Interpretation Comments Basophils (test code = 0.8 See_Comment [Aut omated message] The Basophils) system which ge nerated this result tra nsmitted reference range : <=1.0. The reference r melody was not used to int erpret this result as normal/abnormal . [facility]VIR[facility] - [id number] 01:10:00 Test Item Value Reference Range Interpretation Comments Influ B (test code = Negative (11/28/16 8:10 Influ B) PM) [facility] - [id number] 01:10:00 Test Item Value Reference Range Interpretation Comments Influ A (test code = Negative (11/28/16 8:10 Influ A) PM) [facility]Ref[facility] [id number] 01:15:00 Test Item Value Reference Range Interpretation Comments CK-MB INDEX (test 1.3 See_Comment [Automate d message] The code = CK-MB INDEX) system w [facility] generated this result transmit marcelle reference range : <=2.5. The reference range was not used to interpr et this result as aranza l/abnormal. [facility] CenterRefurrl [id number] 01:15:00 Test Item Value Reference Range Interpretation Comments Troponin-I (test code no gt See_Comment [Auto mated message] The = Troponin-I) system which g enerated this result transmit marcelle reference range : <=0.40. The reference r melody was not used to interpr et this result as aranza l/abnormal. [facility] CenterSenstoreAC [id number] 01:15:00 Test Item Value Reference Range Interpretation Comments CK MB (test code = CK MB) 1.9 0.5-3.6 [facility] CenterRefurrl [id number] 01:15:00 Test Item Value Reference Range Interpretation Comments Total CK (test code = Total CK) 144 12-191 [facility] CenterTetris Online [id number] 01:15:00 Test Item Value Reference Range Interpretation Comments eGFR (test code = eGFR) 77 [facility]2017-03-12 01:15:00 Test Item Value Reference Range Interpretation Comments ASPARTATE TRANSAMINASE 17 See_Comment [Aut omated message] (test code = ASPARTATE The s ystem which TRANSAMINASE) generated this result transmitted ref erence range: <=37. Th e reference range was not used to interpr et this result as normal/abnormal . [facility]2017-03-12 01:15:00 Test Item Value Reference Range Interpretation Comments Total Protein (test code = Total 6.8 6.4-8.4 Protein) [facility]2017-03-12 01:15:00 Test Item Value Reference Range Interpretation Comments Calcium Lvl (test code = Calcium Lvl) 8.5 8.5-10.5 [facility]2017-03-12 01:15:00 Test Item Value Reference Range Interpretation Comments Bili Total (test code = Bili Total) 0.8 0.2-1.3 [facility]2017-03-12 01:15:00 Test Item Value Reference Range Interpretation Comments Chloride Lvl (test code = Chloride Lvl) 106 95-109 [facility]2017-03-12 01:15:00 Test Item Value Reference Range Interpretation Comments CO2 (test code = CO2) 31 24-32 [facility]2017-03-12 01:15:00 Test Item Value Reference Range Interpretation Comments Potassium Lvl (test code = Potassium 3.1 3.5-5.1 Lvl) [facility]2017-03-12 01:15:00 Test Item Value Reference Range Interpretation Comments Creatinine Lvl (test code = Creatinine 0.90 0.50-1.40 Lvl) [facility]2017-03-12 01:15:00 Test Item Value Reference Range Interpretation Comments Sodium Lvl (test code = Sodium Lvl) 144 135-145 [facility]2017-03-12 01:15:00 Test Item Value Reference Range Interpretation Comments BUN (test code = BUN) 12 7-22 [facility]2017-03-12 01:15:00 Test Item Value Reference Range Interpretation Comments Glucose Lvl (test code = Glucose Lvl) 96 70-99 [facility]2017-03-12 01:15:00 Test Item Value Reference Range Interpretation Comments Albumin Lvl (test code = Albumin Lvl) 3.3 3.5-5.0 [facility]2017-03-12 01:15:00 Test Item Value Reference Range Interpretation Comments Alk Phos (test code = Alk Phos) 76 39-136 [facility]2017-03-12 01:15:00 Test Item Value Reference Range Interpretation Comments ALANINE AMINOTRANSFERASE 20 See_Comment [A utomated message] (test code = ALANINE The sys tem which AMINOTRANSFERASE) generated this result transmitted ref erence range: <=65. Th e reference range was not used to int erpret this result as normal/abnormal . [facility]2017-03-12 01:15:00 Test Item Value Reference Range Interpretation Comments Globulin (test code = Globulin) 3.5 2.7-4.2 [facility]2017-03-12 01:15:00 Test Item Value Reference Range Interpretation Comments A/G Ratio (test code = A/G Ratio) 0.9 0.7-1.6 [facility]2017-03-12 01:15:00 Test Item Value Reference Range Interpretation Comments AGAP (test code = AGAP) 10.1 10.0-20.0 [facility]2017-03-12 01:15:00 Test Item Value Reference Range Interpretation Comments B/C Ratio (test code = B/C Ratio) 13 6-25 [facility] HospitalP[id number] 01:15:00 Test Item Value Reference Range Interpretation Comments Eosinophils (test code = 2.8 See_Comment [A utomated message] The Eosinophils) system which ge nerated this result tra nsmitted reference range : <=4.0. The reference r melody was not used to int erpret this result as normal/abnormal . [facility] HospitalVpzxswbKYIFQBASEH7619-74-08 01:15:00 Test Item Value Reference Range Interpretation Comments Eosinophils # (test code 0.2 See_Comment [A utomated message] The = Eosinophils #) system whic h generated this result tra nsmitted reference range : <=0.5. The reference r melody was not used to int erpret this result as normal/abnormal . [facility] HospitalKlowthtFPEGXVJHXI6083-90-95 01:15:00 Test Item Value Reference Range Interpretation Comments Basophils # (test code 0.1 See_Comment [Aut omated message] The = Basophils #) system which generated this result tra nsmitted reference range : <=0.2. The reference r melody was not used to int erpret this result as normal/abnormal . [facility] HospitalDbsxvsnXEBKAJWBXB6078-44-85 01:15:00 Test Item Value Reference Range Interpretation Comments Monocytes # (test code 0.7 See_Comment [Aut omated message] The = Monocytes #) system which generated this result tra nsmitted reference range : <=0.8. The reference r melody was not used to int erpret this result as normal/abnormal . [facility] HospitalZoagofzQJWYAZLYRW6983-99-97 01:15:00 Test Item Value Reference Range Interpretation Comments Basophils (test code = 0.8 See_Comment [Aut omated message] The Basophils) system which ge nerated this result tra nsmitted reference range : <=1.0. The reference r melody was not used to int erpret this result as normal/abnormal . [facility] HospitalEpdhoxbXIQMJUEFIV7204-30-44 01:15:00 Test Item Value Reference Range Interpretation Comments Segs-Bands # (test code = Segs-Bands #) 4.5 1.5-8.1 [facility] HospitalIayilbePPVWFTWQZY1878-24-14 01:15:00 Test Item Value Reference Range Interpretation Comments Lymphocytes # (test code = Lymphocytes 2.2 1.0-5.5 #) [facility] HospitalEsxpqqbXKQJTSDTBV6652-95-28 01:15:00 Test Item Value Reference Range Interpretation Comments Segs (test code = Segs) 58.5 45.0-75.0 [facility] HospitalCpjukzrOHJURTNRUO0520-58-89 01:15:00 Test Item Value Reference Range Interpretation Comments Lymphocytes (test code = Lymphocytes) 28.8 20.0-40.0 [facility] HospitalQhhiicbHUBMIFKQHM5258-41-34 01:15:00 Test Item Value Reference Range Interpretation Comments Monocytes (test code = Monocytes) 9.1 2.0-12.0 [facility] HospitalIksxlkyXRPWQOUEHT8235-51-25 01:15:00 Test Item Value Reference Range Interpretation Comments Platelet (test code = Platelet) 196 133-450 [facility] HospitalMlimxnbCUMFHNFLMS3737-98-25 01:15:00 Test Item Value Reference Range Interpretation Comments RDW (test code = RDW) 14.3 11.5-14.5 [facility] HospitalNwzooyeEAYNKCBCLH8045-38-11 01:15:00 Test Item Value Reference Range Interpretation Comments MPV (test code = MPV) 8.1 7.4-10.4 [facility] HospitalMdgzxjqRJHPTHKIWS8326-61-98 01:15:00 Test Item Value Reference Range Interpretation Comments WBC X 10x3 (test code = WBC X 10x3) 7.7 3.7-10.4 [facility] HospitalBaqhakfCZDPMVKGGZ0891-89-31 01:15:00 Test Item Value Reference Range Interpretation Comments Hgb (test code = Hgb) 13.1 12.0-16.0 [facility] HospitalBqcptguDIYAEJZKUK0603-20-15 01:15:00 Test Item Value Reference Range Interpretation Comments RBC X 10x6 (test code = RBC X 10x6) 4.48 4.20-5.40 [facility] HospitalEjdoaffDUZXSPTPJS3177-50-48 01:15:00 Test Item Value Reference Range Interpretation Comments MCH (test code = MCH) 29.3 pg 27.0-31.0 [facility] HospitalWbmvpnuKVVIXBLLUT8617-91-72 01:15:00 Test Item Value Reference Range Interpretation Comments Hct (test code = Hct) 39.1 36.0-48.0 [facility] HospitalXddjocwGANEZYTQQU0478-16-10 01:15:00 Test Item Value Reference Range Interpretation Comments MCV (test code = MCV) 87.3 80.0-98.0 [facility] HospitalHqepedoOVFGFHMAQW2203-94-77 01:15:00 Test Item Value Reference Range Interpretation Comments MCHC (test code = MCHC) 33.6 32.0-36.0 [facility]DR[facility] [id number] 11:24:00 Test Item Value Reference Range Interpretation Comments U Benzodia Scr (test Negative *NA*(10/11/16 code = U Benzodia Scr) 5:24 AM) [facility]DR[facility] [id number] 11:24:00 Test Item Value Reference Range Interpretation Comments U Keyla Scr (test code Negative *NA*(10/11/16 = U Keyla Scr) 5:24 AM) [facility] CenterannDR[facility] [id number] 11:24:00 Test Item Value Reference Range Interpretation Comments U Amph Scr (test code Negative *NA*(10/11/16 = U Amph Scr) 5:24 AM) [facility]annDR[facility] [id number] 11:24:00 Test Item Value Reference Range Interpretation Comments U Cannab Scr (test Negative *NA*(10/11/16 code = U Cannab Scr) 5:24 AM) [facility] [id number] 11:24:00 Test Item Value Reference Range Interpretation Comments U Cocaine Scr (test Positive *ABN*(10/11/16 code = U Cocaine Scr) 5:24 AM) [facility] [id number] 11:24:00 Test Item Value Reference Range Interpretation Comments UDS Note (test code = See Note (10/11/16 5:24 UDS Note) AM) [facility] [id number] 11:24:00 Test Item Value Reference Range Interpretation Comments U Opiate Scr (test Negative *NA*(10/11/16 code = U Opiate Scr) 5:24 AM) [facility] [id number] 11:24:00 Test Item Value Reference Range Interpretation Comments U Phencyc Scr (test Negative *NA*(10/11/16 code = U Phencyc Scr) 5:24 AM) [facility] CenterannCARDIAC [id number] 09:58:00 Test Item Value Reference Range Interpretation Comments Troponin-I (test code no gt See_Comment [Auto mated message] The = Troponin-I) system which g enerated this result transmit marcelle reference range : <=0.40. The reference r melody was not used to interpr et this result as aranza l/abnormal. [facility] CenterQvlkqkuMLDFJWMNHO1866-14-51 09:58:00 Test Item Value Reference Range Interpretation Comments Eosinophils # (test code 0.4 See_Comment [A utomated message] The = Eosinophils #) system whic h generated this result tra nsmitted reference range : <=0.5. The reference r melody was not used to int erpret this result as normal/abnormal . [facility] CenterJzdjdtoRQINSFFCKB2548-56-29 09:58:00 Test Item Value Reference Range Interpretation Comments Basophils # (test code 0.1 See_Comment [Aut omated message] The = Basophils #) system which generated this result tra nsmitted reference range : <=0.2. The reference r melody was not used to int erpret this result as normal/abnormal . [facility] CenterQtkinxxCZFBBBQMGW6211-39-28 09:58:00 Test Item Value Reference Range Interpretation Comments Eosinophils (test code = 6.3 See_Comment [A utomated message] The Eosinophils) system which ge nerated this result tra nsmitted reference range : <=4.0. The reference r melody was not used to int erpret this result as normal/abnormal . [facility] HospitalCjhqjrjPSUFDESBTV7090-72-78 09:58:00 Test Item Value Reference Range Interpretation Comments Basophils (test code = 1.0 See_Comment [Aut omated message] The Basophils) system which ge nerated this result tra nsmitted reference range : <=1.0. The reference r melody was not used to int erpret this result as normal/abnormal . [facility] HospitalEwbqpupNQJRPQESUE3628-78-62 09:58:00 Test Item Value Reference Range Interpretation Comments Segs-Bands # (test code = Segs-Bands #) 2.7 1.5-8.1 [facility] HospitalSxcxeuoKUEXHVQHWV4538-76-87 09:58:00 Test Item Value Reference Range Interpretation Comments Lymphocytes # (test code = Lymphocytes 2.1 1.0-5.5 #) [facility] HospitalLrazxlaHVCVKTPAJZ2646-42-40 09:58:00 Test Item Value Reference Range Interpretation Comments Monocytes # (test code 0.6 See_Comment [Aut omated message] The = Monocytes #) system which generated this result tra nsmitted reference range : <=0.8. The reference r melody was not used to int erpret this result as normal/abnormal . [facility] HospitalDwknqfuCWGYLPXJIW0241-18-81 09:58:00 Test Item Value Reference Range Interpretation Comments Lymphocytes (test code = Lymphocytes) 36.3 20.0-40.0 [facility] HospitalFugtlvmKLFXMMHFHO8320-72-52 09:58:00 Test Item Value Reference Range Interpretation Comments Segs (test code = Segs) 46.0 45.0-75.0 [facility] HospitalVexssahYTQWFAIITX7459-85-52 09:58:00 Test Item Value Reference Range Interpretation Comments Monocytes (test code = Monocytes) 10.4 2.0-12.0 [facility] HospitalVnvrshrEKCYWSKMEZ6042-79-42 09:58:00 Test Item Value Reference Range Interpretation Comments MPV (test code = MPV) 8.7 7.4-10.4 [facility] HospitalGynlfwhXBVJZEHEIM6152-57-86 09:58:00 Test Item Value Reference Range Interpretation Comments Platelet (test code = Platelet) 194 133-450 [facility] HospitalHopvykjTRXZKNTBOM3953-81-24 09:58:00 Test Item Value Reference Range Interpretation Comments MCH (test code = MCH) 29.3 pg 27.0-31.0 [facility] HospitalOkppuuzDPBGZBKARN9261-03-56 09:58:00 Test Item Value Reference Range Interpretation Comments MCV (test code = MCV) 87.2 80.0-98.0 [facility] HospitalExbsebzRMCXLEEJLN7044-27-93 09:58:00 Test Item Value Reference Range Interpretation Comments RDW (test code = RDW) 14.4 11.5-14.5 [facility] HospitalNzltxjsFARBQFAJMT7464-60-24 09:58:00 Test Item Value Reference Range Interpretation Comments MCHC (test code = MCHC) 33.6 32.0-36.0 [facility] HospitalCtxowcpTHEWMQCAEZ2927-38-75 09:58:00 Test Item Value Reference Range Interpretation Comments Hgb (test code = Hgb) 13.1 12.0-16.0 [facility] HospitalMsjlnrpPARHQGYKKB7373-00-80 09:58:00 Test Item Value Reference Range Interpretation Comments RBC (test code = RBC) 4.45 4.20-5.40 [facility] HospitalNuaywbbAIWOYMUVJB2302-37-63 09:58:00 Test Item Value Reference Range Interpretation Comments Hct (test code = Hct) 38.8 36.0-48.0 [facility] HospitalVqkcfboVVONNZBGGR3915-47-79 09:58:00 Test Item Value Reference Range Interpretation Comments WBC (test code = WBC) 5.8 3.7-10.4 [facility] CenterZruzhspOPUWDS3533-99-72 09:58:00 Test Item Value Reference Range Interpretation Comments CHD Risk (test code = CHD Risk) 2.84 3.90-5.80 [facility] CenterRcoxsdkANCXOV4981-42-50 09:58:00 Test Item Value Reference Range Interpretation Comments VLDL (test code = VLDL) 14 [facility] CenterJfvmgyjYDECHI3295-17-89 09:58:00 Test Item Value Reference Range Interpretation Comments LDL (Calculated) (test code = LDL 87 (Calculated)) [facility] CenterFzlehxuCXEZJM0897-14-84 09:58:00 Test Item Value Reference Range Interpretation Comments Trig (test code = Trig) 71 [facility] CenterOgiiuawLFNLSF1868-62-29 09:58:00 Test Item Value Reference Range Interpretation Comments Chol (test code = Chol) 156 [facility] CenterKfdnzlsONXHRR5201-20-16 09:58:00 Test Item Value Reference Range Interpretation Comments HDL (test code = HDL) 55 [facility] JYGXKMH8752-85-32 00:00:00 Test Item Value Reference Range Interpretation Comments Troponin-I (test code no gt See_Comment [Auto mated message] The = Troponin-I) system which g enerated this result transmit marcelle reference range : <=0.40. The reference r melody was not used to interpr et this result as aranza l/abnormal. [facility] LQLBFVF8133-69-48 19:10:33 Test Item Value Reference Range Interpretation Comments Troponin-I (test code no gt See_Comment [Auto mated message] The = Troponin-I) system which g enerated this result transmit marcelle reference range : <=0.40. The reference r melody was not used to interpr et this result as aranza l/abnormal. [facility]2017-02-12 19:10:33 Test Item Value Reference Range Interpretation Comments eGFR (test code = eGFR) 92 [facility]2017-02-12 19:10:33 Test Item Value Reference Range Interpretation Comments BUN (test code = BUN) 8 7-22 [facility]2017-02-12 19:10:33 Test Item Value Reference Range Interpretation Comments Creatinine Lvl (test code = Creatinine 0.78 0.50-1.40 Lvl) [facility]2017-02-12 19:10:33 Test Item Value Reference Range Interpretation Comments Glucose Lvl (test code = Glucose Lvl) 108 70-99 [facility]2017-02-12 19:10:33 Test Item Value Reference Range Interpretation Comments Potassium Lvl (test code = Potassium 3.2 3.5-5.1 Lvl) [facility]2017-02-12 19:10:33 Test Item Value Reference Range Interpretation Comments Calcium Lvl (test code = Calcium Lvl) 9.3 8.5-10.5 [facility]2017-02-12 19:10:33 Test Item Value Reference Range Interpretation Comments CO2 (test code = CO2) 31 24-32 [facility]2017-02-12 19:10:33 Test Item Value Reference Range Interpretation Comments Sodium Lvl (test code = Sodium Lvl) 143 135-145 [facility]2017-02-12 19:10:33 Test Item Value Reference Range Interpretation Comments Chloride Lvl (test code = Chloride Lvl) 108 95-109 [facility]2017-02-12 19:10:33 Test Item Value Reference Range Interpretation Comments AGAP (test code = AGAP) 7.2 10.0-20.0 [facility] HospitalJzfxlzyYCSPWYKKTF2955-58-86 19:10:33 Test Item Value Reference Range Interpretation Comments MCHC (test code = MCHC) 33.8 32.0-36.0 [facility] HospitalTngbgznVSOACJSWTW0693-94-95 19:10:33 Test Item Value Reference Range Interpretation Comments RDW (test code = RDW) 14.2 11.5-14.5 [facility] HospitalRdhtpskTPJLENNIXP3502-83-19 19:10:33 Test Item Value Reference Range Interpretation Comments MCH (test code = MCH) 29.4 pg 27.0-31.0 [facility] HospitalMllafgmSNJACOQHAT8127-98-58 19:10:33 Test Item Value Reference Range Interpretation Comments MCV (test code = MCV) 87.0 80.0-98.0 [facility] HospitalMbrqwncHQUCDWSZFE3117-10-46 19:10:33 Test Item Value Reference Range Interpretation Comments Hgb (test code = Hgb) 13.5 12.0-16.0 [facility] HospitalZdmvtgyNQTBXOOYAG6662-33-95 19:10:33 Test Item Value Reference Range Interpretation Comments Hct (test code = Hct) 39.8 36.0-48.0 [facility] HospitalBvjmicyTLXKYVKMHV8476-94-90 19:10:33 Test Item Value Reference Range Interpretation Comments Platelet (test code = Platelet) 208 133-450 [facility] HospitalOjoeqafXZFJNLLLPL8389-34-81 19:10:33 Test Item Value Reference Range Interpretation Comments MPV (test code = MPV) 8.7 7.4-10.4 [facility] HospitalTwchlluOAUPEJPNJA8638-46-96 19:10:33 Test Item Value Reference Range Interpretation Comments WBC (test code = WBC) 6.6 3.7-10.4 [facility] HospitalXvlweymWCABUGQWHQ5647-02-71 19:10:33 Test Item Value Reference Range Interpretation Comments RBC (test code = RBC) 4.58 4.20-5.40 [facility] HospitalFljiesxWQRVHTSBRD8954-94-01 19:10:33 Test Item Value Reference Range Interpretation Comments Lymphocytes # (test code = Lymphocytes 1.8 1.0-5.5 #) [facility] HospitalIufqcecTKMXFGXDUJ8907-69-76 19:10:33 Test Item Value Reference Range Interpretation Comments Monocytes # (test code 0.6 See_Comment [Aut omated message] The = Monocytes #) system which generated this result tra nsmitted reference range : <=0.8. The reference r melody was not used to int erpret this result as normal/abnormal . [facility]PxjvnacRFYGOBRYRR7590-96-01 19:10:33 Test Item Value Reference Range Interpretation Comments Eosinophils # (test code 0.3 See_Comment [A utomated message] The = Eosinophils #) system whic h generated this result tra nsmitted reference range : <=0.5. The reference r melody was not used to int erpret this result as normal/abnormal . [facility] HospitalYwoiprcKNNPRKEQZU4870-55-32 19:10:33 Test Item Value Reference Range Interpretation Comments Basophils (test code = 0.6 See_Comment [Aut omated message] The Basophils) system which ge nerated this result tra nsmitted reference range : <=1.0. The reference r melody was not used to int erpret this result as normal/abnormal . [facility] HospitalZtmidilFFOJUYTCRO9854-06-83 19:10:33 Test Item Value Reference Range Interpretation Comments Segs-Bands # (test code = Segs-Bands #) 3.9 1.5-8.1 [facility] HospitalIriharmLNPIQCLAPA0511-45-13 19:10:33 Test Item Value Reference Range Interpretation Comments Monocytes (test code = Monocytes) 9.0 2.0-12.0 [facility] HospitalJlnjvmpBTERYRVQBP0175-36-40 19:10:33 Test Item Value Reference Range Interpretation Comments Eosinophils (test code = 4.1 See_Comment [A utomated message] The Eosinophils) system which ge nerated this result tra nsmitted reference range : <=4.0. The reference r melody was not used to int erpret this result as normal/abnormal . [facility] HospitalHkbjwxiTMGJQPXHAK2272-09-58 19:10:33 Test Item Value Reference Range Interpretation Comments Segs (test code = Segs) 59.5 45.0-75.0 [facility]ShczpdtZDJFUPBLVT4939-85-27 19:10:33 Test Item Value Reference Range Interpretation Comments Lymphocytes (test code = Lymphocytes) 26.8 20.0-40.0 [facility] KNCGGPZ8665-25-07 04:07:00 Test Item Value Reference Range Interpretation Comments Troponin-I (test code no gt See_Comment [Auto mated message] The = Troponin-I) system which g enerated this result transmit marcelle reference range : <=0.40. The reference r melody was not used to interpr et this result as aranza l/abnormal. [facility]ButobjiFMVWQJNWUCWH2251-10-47 04:07:00 Test Item Value Reference Range Interpretation Comments AGAP (test code = AGAP) 13.5 10.0-20.0 [facility] HospitalGgtxozbFLCXLPZRUAGF5303-92-75 04:07:00 Test Item Value Reference Range Interpretation Comments eGFR (test code = eGFR) 79 [facility] HospitalUjzjraiWSPIUPSRNVGP8036-33-19 04:07:00 Test Item Value Reference Range Interpretation Comments Creatinine Lvl (test code = Creatinine 0.89 0.50-1.40 Lvl) [facility] HospitalZpwxannCJFEPXLXNJXZ1828-43-43 04:07:00 Test Item Value Reference Range Interpretation Comments BUN (test code = BUN) 9 7-22 [facility] HospitalVnumqyzWSQPZQXPHEZC5684-16-51 04:07:00 Test Item Value Reference Range Interpretation Comments Glucose Lvl (test code = Glucose Lvl) 72 70-99 [facility] HospitalEvvmxlxXQHUNEXNTVDJ9636-42-22 04:07:00 Test Item Value Reference Range Interpretation Comments Chloride Lvl (test code = Chloride Lvl) 107 95-109 [facility] HospitalHjkkzwfUGRQWXCVGURU7205-41-79 04:07:00 Test Item Value Reference Range Interpretation Comments CO2 (test code = CO2) 25 24-32 [facility] HospitalYeehxcbFEOWIBAOGUEC9766-14-02 04:07:00 Test Item Value Reference Range Interpretation Comments Calcium Lvl (test code = Calcium Lvl) 8.9 8.5-10.5 [facility] HospitalLzybnzgRPRSQMPIXDZY0081-34-81 04:07:00 Test Item Value Reference Range Interpretation Comments Sodium Lvl (test code = Sodium Lvl) 142 135-145 [facility] HospitalPcrthklANGQMOWRDXYS6720-84-28 04:07:00 Test Item Value Reference Range Interpretation Comments Potassium Lvl (test code = Potassium 3.5 3.5-5.1 Lvl) [facility] HospitalMnuwdvjSKDCLXRRNI9915-64-10 04:07:00 Test Item Value Reference Range Interpretation Comments Platelet (test code = Platelet) 181 133-450 [facility] HospitalKawfyktMYXZOTMRWV6088-07-83 04:07:00 Test Item Value Reference Range Interpretation Comments MPV (test code = MPV) 8.5 7.4-10.4 [facility] HospitalZanldgyJGIUWAJPHV8803-37-24 04:07:00 Test Item Value Reference Range Interpretation Comments MCHC (test code = MCHC) 33.5 32.0-36.0 [facility] HospitalRlvjubcGAMYJLCWDU0620-01-99 04:07:00 Test Item Value Reference Range Interpretation Comments MCH (test code = MCH) 28.7 pg 27.0-31.0 [facility] HospitalKrruiiaCLSOZHTIGC5633-36-53 04:07:00 Test Item Value Reference Range Interpretation Comments RDW (test code = RDW) 15.0 11.5-14.5 [facility] HospitalWpwnfzdFUTSDGXBLR5438-36-52 04:07:00 Test Item Value Reference Range Interpretation Comments Hct (test code = Hct) 38.3 36.0-48.0 [facility] HospitalRjasupdXCFJSDNQFQ7458-68-08 04:07:00 Test Item Value Reference Range Interpretation Comments MCV (test code = MCV) 85.6 80.0-98.0 [facility] HospitalRelgmztSEJZTQNGPD3978-06-94 04:07:00 Test Item Value Reference Range Interpretation Comments Hgb (test code = Hgb) 12.9 12.0-16.0 [facility] HospitalRkbyjimBOGRGAAQIM8621-33-97 04:07:00 Test Item Value Reference Range Interpretation Comments RBC (test code = RBC) 4.48 4.20-5.40 [facility] HospitalOrubhreEQABFGYWPA9522-44-37 04:07:00 Test Item Value Reference Range Interpretation Comments WBC (test code = WBC) 5.6 3.7-10.4 [facility] HospitalMmtbyrvBJMERVOATK9027-22-83 04:07:00 Test Item Value Reference Range Interpretation Comments Basophils # (test code 0.1 See_Comment [Aut omated message] The = Basophils #) system which generated this result tra nsmitted reference range : <=0.2. The reference r melody was not used to int erpret this result as normal/abnormal . [facility] HospitalJzpjpekDDNEOOWIML2606-86-17 04:07:00 Test Item Value Reference Range Interpretation Comments Lymphocytes # (test code = Lymphocytes 2.2 1.0-5.5 #) [facility] HospitalOtlgahkGVOIVMUPDY0571-45-05 04:07:00 Test Item Value Reference Range Interpretation Comments Eosinophils # (test code 0.3 See_Comment [A utomated message] The = Eosinophils #) system whic h generated this result tra nsmitted reference range : <=0.5. The reference r melody was not used to int erpret this result as normal/abnormal . [facility] HospitalSxoavoaRYMSFZJJGG8687-18-29 04:07:00 Test Item Value Reference Range Interpretation Comments Monocytes # (test code 0.5 See_Comment [Aut omated message] The = Monocytes #) system which generated this result tra nsmitted reference range : <=0.8. The reference r melody was not used to int erpret this result as normal/abnormal . [facility] HospitalZsmdwreCSPBQPJSNM9900-89-81 04:07:00 Test Item Value Reference Range Interpretation Comments Eosinophils (test code = 6.1 See_Comment [A utomated message] The Eosinophils) system which ge nerated this result tra nsmitted reference range : <=4.0. The reference r melody was not used to int erpret this result as normal/abnormal . [facility] HospitalNvinjiyXQUTXPKHFH2250-58-71 04:07:00 Test Item Value Reference Range Interpretation Comments Basophils (test code = 1.1 See_Comment [Aut omated message] The Basophils) system which ge nerated this result tra nsmitted reference range : <=1.0. The reference r melody was not used to int erpret this result as normal/abnormal . [facility] HospitalDbddosuJHIADGANWD3710-77-80 04:07:00 Test Item Value Reference Range Interpretation Comments Segs-Bands # (test code = Segs-Bands #) 2.5 1.5-8.1 [facility] HospitalNdoyiviLTIPUOGSGB2538-23-14 04:07:00 Test Item Value Reference Range Interpretation Comments Lymphocytes (test code = Lymphocytes) 38.8 20.0-40.0 [facility] HospitalEetyapgPIDXEUBVID0783-94-29 04:07:00 Test Item Value Reference Range Interpretation Comments Monocytes (test code = Monocytes) 9.2 2.0-12.0 [facility] CenterXftfbnqMOSNPGYKAD2155-92-79 04:07:00 Test Item Value Reference Range Interpretation Comments Segs (test code = Segs) 44.8 45.0-75.0 [facility]SnafjzcFLHPBMCWFB7079-73-40 04:07:00 Test Item Value Reference Range Interpretation Comments Ethanol Lvl (test code = Ethanol Lvl) 8 [facility]SbdwcrnDHSMWMYOJA5383-80-79 04:07:00 Test Item Value Reference Range Interpretation Comments Etoh (%) (test code = Etoh (%)) 0.008 [facility] IIQAQZF9124-67-37 11:47:00 Test Item Value Reference Range Interpretation Comments Troponin-I (test code no gt See_Comment [Auto mated message] The = Troponin-I) system which g enerated this result transmit marcelle reference range : <=0.40. The reference r melody was not used to interpr et this result as aranza l/abnormal. [facility]GquojirHHUKUA7231-81-85 11:47:00 Test Item Value Reference Range Interpretation Comments CHD Risk (test code = CHD Risk) 3.39 3.90-5.80 [facility] CenterCrfphysMUNRGY0141-02-58 11:47:00 Test Item Value Reference Range Interpretation Comments VLDL (test code = VLDL) 18 [facility] CenterUgueswcEMUUIU7285-78-89 11:47:00 Test Item Value Reference Range Interpretation Comments LDL (Calculated) (test code = LDL 73 (Calculated)) [facility] CenterNvxnauuUOAJUU0511-61-36 11:47:00 Test Item Value Reference Range Interpretation Comments Trig (test code = Trig) 90 [facility] CenterUwqztdnPUMZQY2724-94-18 11:47:00 Test Item Value Reference Range Interpretation Comments Chol (test code = Chol) 129 [facility] CenterTebtldgJMQODQ8908-56-33 11:47:00 Test Item Value Reference Range Interpretation Comments HDL (test code = HDL) 38 [facility] KOXAAUWRG5679-43-43 11:47:00 Test Item Value Reference Range Interpretation Comments Hgb A1C (test code = Hgb A1C) 5.9 [facility] AVSMQBQ7998-12-27 02:33:00 Test Item Value Reference Range Interpretation Comments Total CK (test code = Total CK) 81 12-191 [facility] NIZWUDM5361-98-56 02:33:00 Test Item Value Reference Range Interpretation Comments Troponin-I (test code 0.02 See_Comment [Auto mated message] The = Troponin-I) system which g enerated this result transmit marcelle reference range : <=0.40. The reference r melody was not used to interpr et this result as aranza l/abnormal. [facility] ATQDCPX8719-68-41 02:33:00 Test Item Value Reference Range Interpretation Comments CK-MB INDEX (test 1.6 See_Comment [Automate d message] The code = CK-MB INDEX) system w [employer] generated this result transmit marcelle reference range : <=2.5. The reference range was not used to interpr et this result as aranza l/abnormal. [facility] WQSYLIK3415-96-58 02:33:00 Test Item Value Reference Range Interpretation Comments CK MB (test code = CK MB) 1.3 0.5-3.6 [facility] CenterPpzlzgoEHJBTMGNNY9137-48-01 21:03:00 Test Item Value Reference Range Interpretation Comments PROTIME (test code = PROTIME) 14.0 s 12.0-14.7 [facility] CenterDcfyllfTRJYWXJMHG9894-04-82 21:03:00 Test Item Value Reference Range Interpretation Comments INR (test code = INR) 1.05 0.85-1.17 [facility] CenterRfihrriHWULDOLUFQ1893-59-86 21:03:00 Test Item Value Reference Range Interpretation Comments aPTT (test code = aPTT) 38.7 s 22.9-35.8 [facility] CenterSjrwnodARDLERVWEW6385-00-53 21:03:00 Test Item Value Reference Range Interpretation Comments D-Dimer (test code = D-Dimer) 0.49 [facility] UBJJCJP8391-31-73 20:14:00 Test Item Value Reference Range Interpretation Comments CK-MB INDEX (test 1.6 See_Comment [Automate d message] The code = CK-MB INDEX) system w [employer] generated this result transmit marcelle reference range : <=2.5. The reference range was not used to interpr et this result as aranza l/abnormal. [facility] CenterBluelock TVKIDVK6591-41-73 20:14:00 Test Item Value Reference Range Interpretation Comments CK MB (test code = CK MB) 1.3 0.5-3.6 [facility] [employer] [id number] 20:14:00 Test Item Value Reference Range Interpretation Comments Troponin-I (test code no gt See_Comment [Auto mated message] The = Troponin-I) system which g enerated this result transmit marcelle reference range : <=0.40. The reference r melody was not used to interpr et this result as aranza l/abnormal. [facility] [employer] MJVRZFO8963-79-22 20:14:00 Test Item Value Reference Range Interpretation Comments Total CK (test code = Total CK) 83 12-191 [facility] [employer] JEOVTLZ9227-89-16 20:14:00 Test Item Value Reference Range Interpretation Comments proBNP (test code = 50 See_Comment [Automa marcelle message] The proBNP) system which ge nerated this result tra nsmitted reference range : <=125. The reference r melody was not used to int erpret this result as aranza l/abnormal. [employer] PDIZI0314-78-03 20:14:00 Test Item Value Reference Range Interpretation Comments Lipase Lvl (test code = Lipase Lvl) 196 73-393 [facility] [employer] [id number] 20:14:00 Test Item Value Reference Range Interpretation Comments eGFR (test code = eGFR) 110 [facility] [employer] [id number] 20:14:00 Test Item Value Reference Range Interpretation Comments Globulin (test code = Globulin) 2.8 2.0-4.0 [facility] [employer] [id number] 20:14:00 Test Item Value Reference Range Interpretation Comments A/G Ratio (test code = A/G Ratio) 1.2 0.7-1.6 [facility] [employer] [id number] 20:14:00 Test Item Value Reference Range Interpretation Comments B/C Ratio (test code = B/C Ratio) 15 6-25 [facility] [employer] [id number] 20:14:00 Test Item Value Reference Range Interpretation Comments AGAP (test code = AGAP) 10.4 10.0-20.0 [employer] [id number] 20:14:00 Test Item Value Reference Range Interpretation Comments ASPARTATE TRANSAMINASE 14 See_Comment [Aut omated message] (test code = ASPARTATE The s ystem which TRANSAMINASE) generated this result transmitted ref erence range: <=37. Th e reference range was not used to interpr et this result as normal/abnormal . [facility]2016-07-14 20:14:00 Test Item Value Reference Range Interpretation Comments Total Protein (test code = Total 6.1 6.4-8.4 Protein) [facility]2016-07-14 20:14:00 Test Item Value Reference Range Interpretation Comments Bili Total (test code = Bili Total) 0.5 0.2-1.3 [facility]2016-07-14 20:14:00 Test Item Value Reference Range Interpretation Comments Calcium Lvl (test code = Calcium Lvl) 7.7 8.5-10.5 [facility]2016-07-14 20:14:00 Test Item Value Reference Range Interpretation Comments CO2 (test code = CO2) 26 24-32 [facility]2016-07-14 20:14:00 Test Item Value Reference Range Interpretation Comments Chloride Lvl (test code = Chloride Lvl) 110 95-109 [facility]2016-07-14 20:14:00 Test Item Value Reference Range Interpretation Comments Potassium Lvl (test code = Potassium 3.4 3.5-5.1 Lvl) [facility]2016-07-14 20:14:00 Test Item Value Reference Range Interpretation Comments Sodium Lvl (test code = Sodium Lvl) 143 135-145 [facility]2016-07-14 20:14:00 Test Item Value Reference Range Interpretation Comments Creatinine Lvl (test code = Creatinine 0.61 0.50-1.40 Lvl) [facility]2016-07-14 20:14:00 Test Item Value Reference Range Interpretation Comments BUN (test code = BUN) 9 7-22 [facility]2016-07-14 20:14:00 Test Item Value Reference Range Interpretation Comments Alk Phos (test code = Alk Phos) 76 39-136 [facility]2016-07-14 20:14:00 Test Item Value Reference Range Interpretation Comments Glucose Lvl (test code = Glucose Lvl) 88 70-99 [facility]2016-07-14 20:14:00 Test Item Value Reference Range Interpretation Comments Albumin Lvl (test code = Albumin Lvl) 3.3 3.5-5.0 [facility]2016-07-14 20:14:00 Test Item Value Reference Range Interpretation Comments ALANINE AMINOTRANSFERASE 15 See_Comment [A utomated message] (test code = ALANINE The sys tem which AMINOTRANSFERASE) generated this result transmitted ref erence range: <=65. Th e reference range was not used to int erpret this result as normal/abnormal . [facility] HospitalGwrrpmnAXDPBZWRVK7331-21-62 20:14:00 Test Item Value Reference Range Interpretation Comments Lymphocytes # (test code = Lymphocytes 1.8 1.0-5.5 #) [facility] HospitalFjzhajfKWQCXDJSVZ4838-15-38 20:14:00 Test Item Value Reference Range Interpretation Comments Monocytes # (test code 0.5 See_Comment [Aut omated message] The = Monocytes #) system which generated this result tra nsmitted reference range : <=0.8. The reference r melody was not used to int erpret this result as normal/abnormal . [facility] HospitalOxckxqnQYELUVTMQA0227-91-74 20:14:00 Test Item Value Reference Range Interpretation Comments Basophils (test code = 1.0 See_Comment [Aut omated message] The Basophils) system which ge nerated this result tra nsmitted reference range : <=1.0. The reference r melody was not used to int erpret this result as normal/abnormal . [facility] HospitalDeddtofIGQHXNLKKD1847-69-35 20:14:00 Test Item Value Reference Range Interpretation Comments Segs-Bands # (test code = Segs-Bands #) 4.1 1.5-8.1 [facility] HospitalYaiattoQISSNTKWVK1995-93-76 20:14:00 Test Item Value Reference Range Interpretation Comments Eosinophils # (test code 0.2 See_Comment [A utomated message] The = Eosinophils #) system whic h generated this result tra nsmitted reference range : <=0.5. The reference r melody was not used to int erpret this result as normal/abnormal . [facility] HospitalYxyuqekWTSRCZWAZL1264-41-88 20:14:00 Test Item Value Reference Range Interpretation Comments Basophils # (test code 0.1 See_Comment [Aut omated message] The = Basophils #) system which generated this result tra nsmitted reference range : <=0.2. The reference r melody was not used to int erpret this result as normal/abnormal . [facility] HospitalXdeefanCVYCBVFFTQ5543-88-35 20:14:00 Test Item Value Reference Range Interpretation Comments Segs (test code = Segs) 61.4 45.0-75.0 [facility] HospitalIdmerojFUTQGNHFUV2305-07-64 20:14:00 Test Item Value Reference Range Interpretation Comments Eosinophils (test code = 3.5 See_Comment [A utomated message] The Eosinophils) system which ge nerated this result tra nsmitted reference range : <=4.0. The reference r melody was not used to int erpret this result as normal/abnormal . [facility] HospitalYkpjncoLSGMSJAHJP6280-68-49 20:14:00 Test Item Value Reference Range Interpretation Comments Lymphocytes (test code = Lymphocytes) 26.6 20.0-40.0 [facility] HospitalWcmngqcTBKYDANONV6119-16-44 20:14:00 Test Item Value Reference Range Interpretation Comments Monocytes (test code = Monocytes) 7.5 2.0-12.0 [facility] HospitalOrynlquZTDFTISCMQ2337-45-20 20:14:00 Test Item Value Reference Range Interpretation Comments WBC X 10x3 (test code = WBC X 10x3) 6.7 3.7-10.4 [facility] HospitalPytvoibSJILGFPVWF1446-78-76 20:14:00 Test Item Value Reference Range Interpretation Comments Hgb (test code = Hgb) 12.2 12.0-16.0 [facility] HospitalTefukogBFPQIQDAEQ9809-49-67 20:14:00 Test Item Value Reference Range Interpretation Comments RBC X 10x6 (test code = RBC X 10x6) 4.26 4.20-5.40 [facility] HospitalDmbadllXJLOUDSIAM3047-68-35 20:14:00 Test Item Value Reference Range Interpretation Comments MCH (test code = MCH) 28.7 pg 27.0-31.0 [facility] HospitalPxdylscEQMKLRYPRV9837-52-21 20:14:00 Test Item Value Reference Range Interpretation Comments MCV (test code = MCV) 86.0 80.0-98.0 [facility] HospitalPgsisntYVZONNZXAQ6432-82-80 20:14:00 Test Item Value Reference Range Interpretation Comments RDW (test code = RDW) 14.9 11.5-14.5 [facility] HospitalNmofkycUQDEKKXGCY4975-98-95 20:14:00 Test Item Value Reference Range Interpretation Comments MCHC (test code = MCHC) 33.3 32.0-36.0 [facility] HospitalXwdfdixCTOXLFKXIY6860-56-18 20:14:00 Test Item Value Reference Range Interpretation Comments Hct (test code = Hct) 36.6 36.0-48.0 [facility] HospitalVzkfhayZEHZSYCOOP1907-48-39 20:14:00 Test Item Value Reference Range Interpretation Comments MPV (test code = MPV) 8.7 7.4-10.4 [facility] HospitalAgeapluRCYLUZMNSI0778-38-94 20:14:00 Test Item Value Reference Range Interpretation Comments Platelet (test code = Platelet) 171 133-450 [facility] AND [id number] 20:14:00 Test Item Value Reference Range Interpretation Comments UA WBC (test code = UA WBC) 0-2 /HPF [facility] AND [id number] 20:14:00 Test Item Value Reference Range Interpretation Comments UA Nitrite (test code Negative (03/11/16 3:14 = UA Nitrite) PM) [facility] AND [id number] 20:14:00 Test Item Value Reference Range Interpretation Comments UA Leuk Est (test Negative (03/11/16 3:14 code = UA Leuk Est) PM) [facility] AND [id number] 20:14:00 Test Item Value Reference Range Interpretation Comments UA Bacteria (test code = UA Occasional /HPF Bacteria) [facility] AND [id number] 20:14:00 Test Item Value Reference Range Interpretation Comments UA RBC (test code = 0-2 /HPF See_Comment [Automa marcelle message] The UA RBC) system which ge nerated this result tra nsmitted reference range : <=2. The reference range was not used to interpr et this result as aranza l/abnormal. [facility] AND [id number] 20:14:00 Test Item Value Reference Range Interpretation Comments UA Sq Epi (test code = UA Sq Occasional /LPF Epi) [facility] AND [id number] 20:14:00 Test Item Value Reference Range Interpretation Comments UA Blood (test code = Negative (03/11/16 3:14 UA Blood) PM) [facility] AND [id number] 20:14:00 Test Item Value Reference Range Interpretation Comments UA Urobilinogen (test code = UA 0.2 0.1-1.0 Urobilinogen) [facility] AND [id number] 20:14:00 Test Item Value Reference Range Interpretation Comments UA Turbidity (test code = Clear (03/11/16 3:14 UA Turbidity) PM) [facility] AND [id number] 20:14:00 Test Item Value Reference Range Interpretation Comments UA Glucose (test code Negative (03/11/16 3:14 = UA Glucose) PM) [facility] AND [id number] 20:14:00 Test Item Value Reference Range Interpretation Comments UA Spec Grav (test code *NA*(03/11/16 3:14 PM) = UA Spec Grav) [facility] AND [id number] 20:14:00 Test Item Value Reference Range Interpretation Comments UA pH (test code = UA pH) 6.5 1 5.0-8.0 [facility] AND [id number] 20:14:00 Test Item Value Reference Range Interpretation Comments UA Ketones (test code Negative *NA*(03/11/16 = UA Ketones) 3:14 PM) [facility] AND [id number] 20:14:00 Test Item Value Reference Range Interpretation Comments UA Bili (test code = Negative *NA*(03/11/16 UA Bili) 3:14 PM) [facility] AND [id number] 20:14:00 Test Item Value Reference Range Interpretation Comments UA Protein (test code Negative (03/11/16 3:14 = UA Protein) PM) [facility] [facility] [id number] 20:14:00 Test Item Value Reference Range Interpretation Comments UA Color (test code = Yellow *NA*(03/11/16 UA Color) 3:14 PM) [facility] [id number] 00:22:00 Test Item Value Reference Range Interpretation Comments UA Color (test code = Yellow *NA*(02/29/16 7:22 UA Color) PM) [facility] [id number] 00:22:00 Test Item Value Reference Range Interpretation Comments UA pH (test code = UA pH) 6.0 1 5.0-8.0 [facility] [id number] 00:22:00 Test Item Value Reference Range Interpretation Comments UA Turbidity (test code = Clear (02/29/16 7:22 UA Turbidity) PM) [facility] AND [id number] 00:22:00 Test Item Value Reference Range Interpretation Comments UA Spec Grav (test code = UA Spec 1.015 1 Grav) [facility] AND [id number] 00:22:00 Test Item Value Reference Range Interpretation Comments UA Leuk Est (test code Trace *ABN*(02/29/16 7:22 = UA Leuk Est) PM) [facility] AND [id number] 00:22:00 Test Item Value Reference Range Interpretation Comments UA Bacteria (test code = UA Few /HPF Bacteria) [facility] AND [id number] 00:22:00 Test Item Value Reference Range Interpretation Comments UA RBC (test None Seen See_Comment [Automated [place]] code = UA RBC) (02/29/16 7:22 PM) [employer] which generated this result transmitted ref erence range: <=2. The reference range was not used to int erpret this result as normal/abnormal . [facility] AND [id number] 00:22:00 Test Item Value Reference Range Interpretation Comments UA Sq Epi (test code = UA Sq Moderate /LPF Epi) [facility] AND [id number] 00:22:00 Test Item Value Reference Range Interpretation Comments UA WBC (test code = UA WBC) 0-2 /HPF [facility] AND [id number] 00:22:00 Test Item Value Reference Range Interpretation Comments UA Blood (test code = Negative (02/29/16 7:22 UA Blood) PM) [facility] AND [id number] 00:22:00 Test Item Value Reference Range Interpretation Comments UA Urobilinogen (test code = UA 1.0 0.1-1.0 Urobilinogen) [facility] AND [id number] 00:22:00 Test Item Value Reference Range Interpretation Comments UA Nitrite (test code Negative (02/29/16 7:22 = UA Nitrite) PM) [facility] AND [id number] 00:22:00 Test Item Value Reference Range Interpretation Comments UA Trichomonas (test code = UA Few /HPF Trichomonas) [facility] AND [id number] 00:22:00 Test Item Value Reference Range Interpretation Comments UA Protein (test code Negative (02/29/16 7:22 = UA Protein) PM) [facility] AND [id number] 00:22:00 Test Item Value Reference Range Interpretation Comments UA Bili (test code = Negative *NA*(02/29/16 UA Bili) 7:22 PM) [facility] AND [id number] 00:22:00 Test Item Value Reference Range Interpretation Comments UA Ketones (test code Negative *NA*(02/29/16 = UA Ketones) 7:22 PM) [facility] AND [id number] 00:22:00 Test Item Value Reference Range Interpretation Comments UA Glucose (test code Negative (02/29/16 7:22 = UA Glucose) PM) [facility]AC [id number] 23:14:00 Test Item Value Reference Range Interpretation Comments Troponin-I (test code no gt See_Comment [Auto mated message] The = Troponin-I) system which g enerated this result transmit marcelle reference range : <=0.40. The reference r melody was not used to interpr et this result as aranza l/abnormal. [facility] CenterNeurocrine BiosciencesCARDIAC [id number] 23:14:00 Test Item Value Reference Range Interpretation Comments CK MB (test code = CK MB) 1.1 0.5-3.6 [facility]annCARDIAC [id number] 23:14:00 Test Item Value Reference Range Interpretation Comments Total CK (test code = Total CK) 136 12-191 [facility]annCARDIAC [id number] 23:14:00 Test Item Value Reference Range Interpretation Comments proBNP (test code = 7 See_Comment [Automa marcelle message] The proBNP) system which ge nerated this result tra nsmitted reference range : <=125. The reference r melody was not used to int erpret this result as aranza l/abnormal. [facility] [employer] P[employer]annCARDIAC [id number] 23:14:00 Test Item Value Reference Range Interpretation Comments CK-MB INDEX (test 0.8 See_Comment [Automate d message] The code = CK-MB INDEX) system w [facility] generated this result transmit marcelle reference range : <=2.5. The reference range was not used to interpr et this result as aranza l/abnormal. [facility]2016-07-03 23:14:00 Test Item Value Reference Range Interpretation Comments eGFR (test code = eGFR) 80 [facility]2016-07-03 23:14:00 Test Item Value Reference Range Interpretation Comments ASPARTATE TRANSAMINASE 13 See_Comment [Aut omated message] (test code = ASPARTATE The s ystem which TRANSAMINASE) generated this result transmitted ref erence range: <=37. Th e reference range was not used to interpr et this result as normal/abnormal . [facility]2016-07-03 23:14:00 Test Item Value Reference Range Interpretation Comments A/G Ratio (test code = A/G Ratio) 1.0 0.7-1.6 [place] [id number] 23:14:00 Test Item Value Reference Range Interpretation Comments Globulin (test code = Globulin) 3.6 2.0-4.0 [facility]2016-07-03 23:14:00 Test Item Value Reference Range Interpretation Comments B/C Ratio (test code = B/C Ratio) 9 6-25 [facility]2016-07-03 23:14:00 Test Item Value Reference Range Interpretation Comments Total Protein (test code = Total 7.1 6.4-8.4 Protein) [facility]2016-07-03 23:14:00 Test Item Value Reference Range Interpretation Comments AGAP (test code = AGAP) 10.0 10.0-20.0 [facility]2016-07-03 23:14:00 Test Item Value Reference Range Interpretation Comments Sodium Lvl (test code = Sodium Lvl) 143 135-145 [facility]2016-07-03 23:14:00 Test Item Value Reference Range Interpretation Comments Potassium Lvl (test code = Potassium 3.0 3.5-5.1 Lvl) [facility]2016-07-03 23:14:00 Test Item Value Reference Range Interpretation Comments Creatinine Lvl (test code = Creatinine 0.88 0.50-1.40 Lvl) [facility]2016-07-03 23:14:00 Test Item Value Reference Range Interpretation Comments CO2 (test code = CO2) 30 24-32 [facility]2016-07-03 23:14:00 Test Item Value Reference Range Interpretation Comments Bili Total (test code = Bili Total) 0.6 0.2-1.3 [facility]2016-07-03 23:14:00 Test Item Value Reference Range Interpretation Comments Calcium Lvl (test code = Calcium Lvl) 8.7 8.5-10.5 [facility]2016-07-03 23:14:00 Test Item Value Reference Range Interpretation Comments Chloride Lvl (test code = Chloride Lvl) 106 95-109 [facility]2016-07-03 23:14:00 Test Item Value Reference Range Interpretation Comments ALANINE AMINOTRANSFERASE 15 See_Comment [A utomated message] (test code = ALANINE The sys tem which AMINOTRANSFERASE) generated this result transmitted ref erence range: <=65. Th e reference range was not used to int erpret this result as normal/abnormal . [facility]2016-07-03 23:14:00 Test Item Value Reference Range Interpretation Comments Alk Phos (test code = Alk Phos) 88 39-136 [facility]2016-07-03 23:14:00 Test Item Value Reference Range Interpretation Comments Albumin Lvl (test code = Albumin Lvl) 3.5 3.5-5.0 [facility]2016-07-03 23:14:00 Test Item Value Reference Range Interpretation Comments BUN (test code = BUN) 8 7-22 [facility]2016-07-03 23:14:00 Test Item Value Reference Range Interpretation Comments Glucose Lvl (test code = Glucose Lvl) 89 70-99 [facility] HospitalUiybuddNNIQAIRGNP9014-01-18 23:14:00 Test Item Value Reference Range Interpretation Comments PROTIME (test code = PROTIME) 13.2 s 12.0-14.7 [facility] Hospit[id number] 23:14:00 Test Item Value Reference Range Interpretation Comments INR (test code = INR) 0.97 0.85-1.17 [facility] HospitalSfrprslGSYHNIASTW1579-90-27 23:14:00 Test Item Value Reference Range Interpretation Comments RDW (test code = RDW) 15.3 11.5-14.5 [place] [id number] 23:14:00 Test Item Value Reference Range Interpretation Comments MCHC (test code = MCHC) 32.9 32.0-36.0 [facility] HospitalBplywpiCGOUZBADJI7037-27-09 23:14:00 Test Item Value Reference Range Interpretation Comments Hct (test code = Hct) 43.8 36.0-48.0 [facility] HospitalSihuvbxOPTGTYJTUV0106-25-83 23:14:00 Test Item Value Reference Range Interpretation Comments MCH (test code = MCH) 28.1 pg 27.0-31.0 [facility] HospitalUwzvjagUBGDBJKAJS4969-22-45 23:14:00 Test Item Value Reference Range Interpretation Comments MCV (test code = MCV) 85.5 80.0-98.0 [facility] HospitalUndnbhqMWQLMSPVFR5612-72-44 23:14:00 Test Item Value Reference Range Interpretation Comments WBC X 10x3 (test code = WBC X 10x3) 5.3 3.7-10.4 [facility] HospitalCpnwhwoQPJSRWBNJR8982-57-18 23:14:00 Test Item Value Reference Range Interpretation Comments Hgb (test code = Hgb) 14.4 12.0-16.0 [facility] HospitalHfgbkpaJNVTBYQHCB7755-45-57 23:14:00 Test Item Value Reference Range Interpretation Comments RBC X 10x6 (test code = RBC X 10x6) 5.12 4.20-5.40 [facility] HospitalHekkdjbTEKWITWCZT4349-29-43 23:14:00 Test Item Value Reference Range Interpretation Comments Platelet (test code = Platelet) 197 133-450 [facility] HospitalXfvcxzkXYIIQKNVLX5569-76-12 23:14:00 Test Item Value Reference Range Interpretation Comments MPV (test code = MPV) 8.1 7.4-10.4 [facility] HospitalUbbjksbEEPOYFYVSX1768-86-23 23:14:00 Test Item Value Reference Range Interpretation Comments Segs (test code = Segs) 57.2 45.0-75.0 [facility] HospitalKtqogmdUXFYJRQEFC6138-40-91 23:14:00 Test Item Value Reference Range Interpretation Comments Monocytes (test code = Monocytes) 11.7 2.0-12.0 [facility] HospitalTnhsungXDNJXNNRFK5223-54-91 23:14:00 Test Item Value Reference Range Interpretation Comments Lymphocytes (test code = Lymphocytes) 24.1 20.0-40.0 [facility] HospitalRjksxbqZAPDQPSMXF3033-68-79 23:14:00 Test Item Value Reference Range Interpretation Comments Basophils # (test code 0.1 See_Comment [Aut omated message] The = Basophils #) system which generated this result tra nsmitted reference range : <=0.2. The reference r melody was not used to int erpret this result as normal/abnormal . [facility] HospitalGhcyrdnFBEWKLKHTM3633-15-50 23:14:00 Test Item Value Reference Range Interpretation Comments Monocytes # (test code 0.6 See_Comment [Aut omated message] The = Monocytes #) system which generated this result tra nsmitted reference range : <=0.8. The reference r melody was not used to int erpret this result as normal/abnormal . [facility] HospitalWtubpggEZOUEJFSWF1690-25-28 23:14:00 Test Item Value Reference Range Interpretation Comments Lymphocytes # (test code = Lymphocytes 1.3 1.0-5.5 #) [facility] HospitalKryeitjHGRCHWWOKH2158-09-93 23:14:00 Test Item Value Reference Range Interpretation Comments Eosinophils # (test code 0.3 See_Comment [A utomated message] The = Eosinophils #) system whic h generated this result tra nsmitted reference range : <=0.5. The reference r melody was not used to int erpret this result as normal/abnormal . [facility] HospitalTpmuhktLNEXVSEJEF0725-09-30 23:14:00 Test Item Value Reference Range Interpretation Comments Segs-Bands # (test code = Segs-Bands #) 3.0 1.5-8.1 [facility] HospitalTaftwkaLAKWYHUSOF6525-85-79 23:14:00 Test Item Value Reference Range Interpretation Comments Eosinophils (test code = 5.9 See_Comment [A utomated message] The Eosinophils) system which ge nerated this result tra nsmitted reference range : <=4.0. The reference r melody was not used to int erpret this result as normal/abnormal . [facility] HospitalFxsmzruMAPWHOFNBD6458-53-82 23:14:00 Test Item Value Reference Range Interpretation Comments Basophils (test code = 1.1 See_Comment [Aut omated message] The Basophils) system which ge nerated this result tra nsmitted reference range : <=1.0. The reference r melody was not used to int erpret this result as normal/abnormal . [facility]CARD[facility] [id number] 17:04:00 Test Item Value Reference Range Interpretation Comments CK MB Index (test 0.7 See_Comment [Automate d message] The code = CK MB Index) [facility] generated this result transmit marcelle reference range : <=2.5. The reference range was not used to interpr et this result as aranza l/abnormal. [facility] CenterAkashi TherapeuticsCL[facility] [id number] 17:04:00 Test Item Value Reference Range Interpretation Comments CK MB (test code = CK MB) 0.7 0.5-3.6 [facility] [id number] 17:04:00 Test Item Value Reference Range Interpretation Comments Troponin-I (test code no gt See_Comment [Auto mated message] The = Troponin-I) system which g enerated this result transmit marcelle reference range : <=0.40. The reference r melody was not used to interpr et this result as aranza l/abnormal. [facility] CenterAkashi TherapeuticsCL[facility] [id number] 17:04:00 Test Item Value Reference Range Interpretation Comments Total CK (test code = Total CK) 97 12-191 [facility]TnzpnwkXBORJNQQZFJB9575-79-98 17:04:00 Test Item Value Reference Range Interpretation Comments AGAP (test code = AGAP) 18.3 10.0-20.0 [facility]TcjgrzwSBMCQDPVUBDV4185-39-42 17:04:00 Test Item Value Reference Range Interpretation Comments eGFR (test code = eGFR) 78 [facility] HospitalHfudkwdIWFCEBELEPBF2750-64-49 17:04:00 Test Item Value Reference Range Interpretation Comments Glucose Lvl (test code = Glucose Lvl) 134 70-99 [facility] HospitalAqqkcqvQYVNNPRJEAWO5531-48-06 17:04:00 Test Item Value Reference Range Interpretation Comments BUN (test code = BUN) 10 7-22 [facility] CenterSjkcgrwJJWVVDKGAYBW8405-81-65 17:04:00 Test Item Value Reference Range Interpretation Comments Creatinine Lvl (test code = Creatinine 0.90 0.50-1.40 Lvl) [facility] HospitalCrhnssvRWQFBYEHIUEI9293-80-92 17:04:00 Test Item Value Reference Range Interpretation Comments CO2 (test code = CO2) 20 24-32 [facility]RexmnlxEPRPJFNPNDKB3955-72-94 17:04:00 Test Item Value Reference Range Interpretation Comments Calcium Lvl (test code = Calcium Lvl) 9.4 8.5-10.5 [facility]ZdnghnmCTMDJEGTAKJN9581-13-09 17:04:00 Test Item Value Reference Range Interpretation Comments Potassium Lvl (test code = Potassium 4.3 3.5-5.1 Lvl) [facility] HospitalDwmywlyOMPBKEGTBFHP8805-55-81 17:04:00 Test Item Value Reference Range Interpretation Comments Chloride Lvl (test code = Chloride Lvl) 106 95-109 [facility] HospitalMwrjibzKDRKWGUCQDEK2590-12-21 17:04:00 Test Item Value Reference Range Interpretation Comments Sodium Lvl (test code = Sodium Lvl) 140 135-145 [facility] HospitalQzcqkyuAVHTXQWXXS8163-03-85 17:04:00 Test Item Value Reference Range Interpretation Comments WBC (test code = WBC) 9.6 3.7-10.4 [facility] HospitalUtdpgvdHRCEVXOPMB2207-61-78 17:04:00 Test Item Value Reference Range Interpretation Comments Hct (test code = Hct) 41.4 36.0-48.0 [facility] HospitalSnqsovrNMCMKEVPAO3622-84-18 17:04:00 Test Item Value Reference Range Interpretation Comments Hgb (test code = Hgb) 13.1 12.0-16.0 [facility] HospitalYqqfneqUFRGYUIRGZ5035-45-28 17:04:00 Test Item Value Reference Range Interpretation Comments RBC (test code = RBC) 4.74 4.20-5.40 [facility] HospitalObjkmsnETJDCRZISY8590-37-47 17:04:00 Test Item Value Reference Range Interpretation Comments MCV (test code = MCV) 87.3 80.0-98.0 [facility] HospitalXpyibflULFWNOCFFR6756-41-84 17:04:00 Test Item Value Reference Range Interpretation Comments MCHC (test code = MCHC) 31.5 32.0-36.0 [facility] HospitalNysnyswIYVJRDIAPR8206-55-59 17:04:00 Test Item Value Reference Range Interpretation Comments MCH (test code = MCH) 27.5 pg 27.0-31.0 [facility] HospitalAnmucjeJSVKWJQYRV1806-82-63 17:04:00 Test Item Value Reference Range Interpretation Comments MPV (test code = MPV) 8.7 7.4-10.4 [facility] HospitalMxromsfOUBHFJQXLU9023-49-10 17:04:00 Test Item Value Reference Range Interpretation Comments Platelet (test code = Platelet) 226 133-450 [facility] HospitalEtkjmdtJLNHFEDDNK3485-11-35 17:04:00 Test Item Value Reference Range Interpretation Comments RDW (test code = RDW) 14.4 11.5-14.5 [facility] HospitalYmpsynxBRUBCTHDML3149-17-15 17:04:00 Test Item Value Reference Range Interpretation Comments Monocytes # (test code 0.1 See_Comment [Aut omated message] The = Monocytes #) system which generated this result tra nsmitted reference range : <=0.8. The reference r melody was not used to int erpret this result as normal/abnormal . [facility] HospitalHjjewqqFTRJQRFMMB6020-65-69 17:04:00 Test Item Value Reference Range Interpretation Comments Lymphocytes # (test code = Lymphocytes 0.5 1.0-5.5 #) [facility] HospitalWtecntxRVISLFEIIU7730-25-07 17:04:00 Test Item Value Reference Range Interpretation Comments RBC Morph (test code = Normal (09/04/15 11:04 RBC Morph) AM) [facility] HospitalQwkwmcyPUNBJYHZRA7700-23-00 17:04:00 Test Item Value Reference Range Interpretation Comments Plt Morph (test code = Normal (09/04/15 11:04 Plt Morph) AM) [facility] HospitalGgmvkdhIFKIYNIUHN9095-55-01 17:04:00 Test Item Value Reference Range Interpretation Comments Segs (test code = Segs) 93.3 45.0-75.0 [facility] HospitalIebbecvXTLUSHSIST1915-21-73 17:04:00 Test Item Value Reference Range Interpretation Comments Basophils (test code = 0.2 See_Comment [Aut omated message] The Basophils) system which ge nerated this result tra nsmitted reference range : <=1.0. The reference r melody was not used to int erpret this result as normal/abnormal . [facility] HospitalIeyaataPQOKXJKDAL2395-78-39 17:04:00 Test Item Value Reference Range Interpretation Comments Lymphocytes (test code = Lymphocytes) 5.4 20.0-40.0 [facility] HospitalIdjwvemUERIJTXYZQ7129-55-36 17:04:00 Test Item Value Reference Range Interpretation Comments Monocytes (test code = Monocytes) 1.1 2.0-12.0 [facility] HospitalBtgnlvzLZKZJDQUFL4525-96-49 17:04:00 Test Item Value Reference Range Interpretation Comments Segs-Bands # (test code = Segs-Bands #) 9.0 1.5-8.1 [facility] CenterSjftwazPFGHRI9422-02-76 17:04:00 Test Item Value Reference Range Interpretation Comments VLDL (test code = VLDL) 14 [facility] CenterKqiwpgvMMJUQA2800-43-74 17:04:00 Test Item Value Reference Range Interpretation Comments Chol (test code = Chol) 198 [facility] CenterZszagkiUXVIQN2617-01-91 17:04:00 Test Item Value Reference Range Interpretation Comments HDL (test code = HDL) 54 [facility] CenterYhrcghqRCFULP8866-30-19 17:04:00 Test Item Value Reference Range Interpretation Comments Trig (test code = Trig) 71 [facility] CenterBujzrtaXVRQNX0677-40-02 17:04:00 Test Item Value Reference Range Interpretation Comments LDL (Calculated) (test code = LDL 130 (Calculated)) [facility] HospitalPliwxukCUIMVL3527-39-81 17:04:00 Test Item Value Reference Range Interpretation Comments CHD Risk (test code = CHD Risk) 3.67 3.90-5.80 [facility] CenterMass[facility]2016-[facility] 10:50:00 Test Item Value Reference Range Interpretation Comments CK MB Index (test 0.6 See_Comment [Automate d message] The code = CK MB Index) system w [facility] generated this result transmit marcelle reference range : <=2.5. The reference range was not used to interpr et this result as aranza l/abnormal. [facility] CenterMass[facility]2016-01-07 10:50:00 Test Item Value Reference Range Interpretation Comments CK MB (test code = CK MB) 0.6 0.5-3.6 [facility] CenteriCarsClubHBSMUTK5898-53-90 10:50:00 Test Item Value Reference Range Interpretation Comments Troponin-I (test code no gt See_Comment [Auto mated message] The = Troponin-I) system which g enerated this result transmit marcelle reference range : <=0.40. The reference r melody was not used to interpr et this result as aranza l/abnormal. [facility] CenterRefurrl NCJPKWW1427-72-40 10:50:00 Test Item Value Reference Range Interpretation Comments Total CK (test code = Total CK) 103 12-191 [facility] CenterRefurrl CRULYPJ5531-44-63 04:33:00 Test Item Value Reference Range Interpretation Comments Total CK (test code = Total CK) 113 12-191 [facility] CenterSenstore BQLABCR0514-13-03 04:33:00 Test Item Value Reference Range Interpretation Comments Troponin-I (test code no gt See_Comment [Auto mated message] The = Troponin-I) system which g enerated this result transmit marcelle reference range : <=0.40. The reference r melody was not used to interpr et this result as aranza l/abnormal. [facility] CenterSenstore QUXVVGN2996-05-59 04:33:00 Test Item Value Reference Range Interpretation Comments CK MB (test code = CK MB) 0.8 0.5-3.6 [facility] CenterRefurrl EFIMRSX6565-89-26 04:33:00 Test Item Value Reference Range Interpretation Comments CK MB Index (test 0.7 See_Comment [Automate d message] The code = CK MB Index) system w [facility] generated this result transmit marcelle reference range : <=2.5. The reference range was not used to interpr et this result as aranza l/abnormal. [facility] [employer] [id number] 04:33:00 Test Item Value Reference Range Interpretation Comments eGFR (test code = eGFR) 87 [facility] CenterEmberLRHOQ6464-09-99 04:33:00 Test Item Value Reference Range Interpretation Comments BUN (test code = BUN) 8 7-22 [facility] [employer] XDZVL2848-10-00 04:33:00 Test Item Value Reference Range Interpretation Comments Creatinine Lvl (test code = Creatinine 0.82 0.50-1.40 Lvl) [facility] [employer] HFMYW0075-74-03 04:33:00 Test Item Value Reference Range Interpretation Comments Glucose Lvl (test code = Glucose Lvl) 115 70-99 [facility] [employer] [id number] 04:33:00 Test Item Value Reference Range Interpretation Comments Chloride Lvl (test code = Chloride Lvl) 106 95-109 [facility] [employer]2016-01-07 04:33:00 Test Item Value Reference Range Interpretation Comments Potassium Lvl (test code = Potassium 3.9 3.5-5.1 Lvl) [facility] [employer] [id number] 04:33:00 Test Item Value Reference Range Interpretation Comments Sodium Lvl (test code = Sodium Lvl) 141 135-145 [facility] [employer] [id number] 04:33:00 Test Item Value Reference Range Interpretation Comments AGAP (test code = AGAP) 13.9 10.0-[facility] [facility]2016-01-07 04:33:00 Test Item Value Reference Range Interpretation Comments Calcium Lvl (test code = Calcium Lvl) 9.2 8.5-10.5 [facility]2016-01-07 04:33:00 Test Item Value Reference Range Interpretation Comments CO2 (test code = CO2) 25 24-32 [facility]SlqqnghHDLJFJHDTX2556-04-44 04:33:00 Test Item Value Reference Range Interpretation Comments WBC (test code = WBC) 7.4 3.7-10.4 [facility] HospitalVzjannjFGJIYBNTRW1322-98-03 04:33:00 Test Item Value Reference Range Interpretation Comments Hgb (test code = Hgb) 12.4 12.0-16.0 [facility] HospitalKpkgwrgQKUBGCHKQX7515-84-31 04:33:00 Test Item Value Reference Range Interpretation Comments RBC (test code = RBC) 4.57 4.20-5.40 [facility] HospitalEjmzlxfBLLUDPCELB8441-45-72 04:33:00 Test Item Value Reference Range Interpretation Comments Hct (test code = Hct) 39.4 36.0-48.0 [facility] HospitalSdqjvrwHMVDIXRMBG0971-94-44 04:33:00 Test Item Value Reference Range Interpretation Comments MCV (test code = MCV) 86.1 80.0-98.0 [facility] HospitalHkidsflWWXUZJBJRP6166-55-91 04:33:00 Test Item Value Reference Range Interpretation Comments RDW (test code = RDW) 14.7 11.5-14.5 [facility] HospitalRzlrvrqKGOHGBOBUU8244-60-36 04:33:00 Test Item Value Reference Range Interpretation Comments MCHC (test code = MCHC) 31.6 32.0-36.0 [facility] HospitalEycmtzxXYQCKNXCSZ0797-08-69 04:33:00 Test Item Value Reference Range Interpretation Comments MCH (test code = MCH) 27.2 pg 27.0-31.0 [facility] HospitalVspvynmURCIFVQJEP8536-22-49 04:33:00 Test Item Value Reference Range Interpretation Comments MPV (test code = MPV) 8.3 7.4-10.4 [facility] HospitalQegmjivSRPJYWPGTA1341-29-98 04:33:00 Test Item Value Reference Range Interpretation Comments Platelet (test code = Platelet) 239 133-450 [facility] HospitalHoyxosrUUZVZWXQEP5168-76-34 04:33:00 Test Item Value Reference Range Interpretation Comments Eosinophils (test code = 5.5 See_Comment [A utomated message] The Eosinophils) system which ge nerated this result tra nsmitted reference range : <=4.0. The reference r melody was not used to int erpret this result as normal/abnormal . [facility] HospitalMfhmgtvOVFLHNBACL0350-49-91 04:33:00 Test Item Value Reference Range Interpretation Comments Monocytes (test code = Monocytes) 6.5 2.0-12.0 [facility] HospitalXioqhmpZCNFSULCCJ5812-44-54 04:33:00 Test Item Value Reference Range Interpretation Comments Lymphocytes (test code = Lymphocytes) 31.7 20.0-40.0 [facility] HospitalYryppfuGHWZWMCZKI1209-73-21 04:33:00 Test Item Value Reference Range Interpretation Comments Segs (test code = Segs) 55.0 45.0-75.0 [facility] HospitalBualsdoMUOTEKJFOP8721-38-82 04:33:00 Test Item Value Reference Range Interpretation Comments Monocytes # (test code 0.5 See_Comment [Aut omated message] The = Monocytes #) system which generated this result tra nsmitted reference range : <=0.8. The reference r melody was not used to int erpret this result as normal/abnormal . [facility] HospitalGzzbkheDRXNIWFPOB7484-48-80 04:33:00 Test Item Value Reference Range Interpretation Comments Lymphocytes # (test code = Lymphocytes 2.3 1.0-5.5 #) [facility] HospitalTkucqjrTPHDZQQYIJ5655-63-59 04:33:00 Test Item Value Reference Range Interpretation Comments Segs-Bands # (test code = Segs-Bands #) 4.0 1.5-8.1 [facility] HospitalPswzkceWJCJDYSCRJ2878-09-24 04:33:00 Test Item Value Reference Range Interpretation Comments Basophils (test code = 1.3 See_Comment [Aut omated message] The Basophils) system which ge nerated this result tra nsmitted reference range : <=1.0. The reference r melody was not used to int erpret this result as normal/abnormal . [facility] HospitalLftawaoBONEBRGETF1209-45-08 04:33:00 Test Item Value Reference Range Interpretation Comments Basophils # (test code 0.1 See_Comment [Aut omated message] The = Basophils #) system which generated this result tra nsmitted reference range : <=0.2. The reference r melody was not used to int erpret this result as normal/abnormal . [facility]AdqqhpaFVHEMWEUFQ1083-82-24 04:33:00 Test Item Value Reference Range Interpretation Comments Eosinophils # (test code 0.4 See_Comment [A utomated message] The = Eosinophils #) system wh h generated this result tra nsmitted reference range : <=0.5. The reference r meldoy was not used to int erpret this result as normal/abnormal . [facility] [employer] [id number] 10:25:00 Test Item Value Reference Range Interpretation Comments Troponin-I (test code no gt See_Comment [Auto mated message] The = Troponin-I) system which g enerated this result transmit marcelle reference range : <=0.40. The reference r melody was not used to interpr et this result as aranza l/abnormal. [facility] [employer] [id number] 10:25:00 Test Item Value Reference Range Interpretation Comments Total CK (test code = Total CK) 75 12-191 [facility] [employer] [id number] 10:25:00 Test Item Value Reference Range Interpretation Comments CK MB (test code = CK MB) 0.9 0.5-3.6 [facility] [id number] 10:25:00 Test Item Value Reference Range Interpretation Comments CK-MB INDEX (test 1.2 See_Comment [Automate d message] The code = CK-MB INDEX) system w [facility] generated this result transmit marcelle reference range : <=2.5. The reference range was not used to interpr et this result as aranza l/abnormal. [facility] [employer] [id number] 10:25:00 Test Item Value Reference Range Interpretation Comments eGFR (test code = eGFR) 105 [facility] [employer] [id number] 10:25:00 Test Item Value Reference Range Interpretation Comments Bili Total (test code = Bili Total) 0.6 0.2-1.3 [facility] [employer] [id number] 10:25:00 Test Item Value Reference Range Interpretation Comments Albumin Lvl (test code = Albumin Lvl) 3.1 3.5-5.0 [facility]2015-11-18 10:25:00 Test Item Value Reference Range Interpretation Comments Calcium Lvl (test code = Calcium Lvl) 9.0 8.5-10.5 [facility]2015-11-18 10:25:00 Test Item Value Reference Range Interpretation Comments Total Protein (test code = Total 6.3 6.4-8.4 Protein) [facility]2015-11-18 10:25:00 Test Item Value Reference Range Interpretation Comments AST (test code = AST) 14 See_Comment [Auto mated message] The system which ge nerated this result transmit marcelle reference range : <=37. The reference range was not used to interpr et this result as aranza l/abnormal. [facility]2015-11-18 10:25:00 Test Item Value Reference Range Interpretation Comments Alk Phos (test code = Alk Phos) 89 39-136 [facility]2015-11-18 10:25:00 Test Item Value Reference Range Interpretation Comments ALT (test code = ALT) 19 See_Comment [Auto mated message] The system which ge nerated this result transmit marcelle reference range : <=65. The reference range was not used to interpr et this result as aranza l/abnormal. [facility]2015-11-18 10:25:00 Test Item Value Reference Range Interpretation Comments CO2 (test code = CO2) 25 24-32 [facility]2015-11-18 10:25:00 Test Item Value Reference Range Interpretation Comments Potassium Lvl (test code = Potassium 4.2 3.5-5.1 Lvl) [facility]2015-11-18 10:25:00 Test Item Value Reference Range Interpretation Comments Chloride Lvl (test code = Chloride Lvl) 108 95-109 [facility]2015-11-18 10:25:00 Test Item Value Reference Range Interpretation Comments BUN (test code = BUN) 14 7-22 [facility]2015-11-18 10:25:00 Test Item Value Reference Range Interpretation Comments Creatinine Lvl (test code = Creatinine 0.70 0.50-1.40 Lvl) [facility]2015-11-18 10:25:00 Test Item Value Reference Range Interpretation Comments Sodium Lvl (test code = Sodium Lvl) 139 135-145 [facility]2015-11-18 10:25:00 Test Item Value Reference Range Interpretation Comments Glucose Lvl (test code = Glucose Lvl) 78 70-99 [facility]2015-11-18 10:25:00 Test Item Value Reference Range Interpretation Comments B/C Ratio (test code = B/C Ratio) 20 6-25 [facility]2015-11-18 10:25:00 Test Item Value Reference Range Interpretation Comments AGAP (test code = AGAP) 10.2 10.0-20.0 [facility]2015-11-18 10:25:00 Test Item Value Reference Range Interpretation Comments A/G Ratio (test code = A/G Ratio) 1.0 0.7-1.6 [facility]2015-11-18 10:25:00 Test Item Value Reference Range Interpretation Comments Globulin (test code = Globulin) 3.2 2.0-4.0 [facility] HospitalWvrpzfhEEESGNKVHI0818-81-60 10:25:00 Test Item Value Reference Range Interpretation Comments MPV (test code = MPV) 8.6 7.4-10.4 [facility] HospitalAomvrboTSHTNTQXNZ5702-55-51 10:25:00 Test Item Value Reference Range Interpretation Comments Platelet (test code = Platelet) 166 133-450 [facility] HospitalZljpvolJOOOQGGSXH8667-13-51 10:25:00 Test Item Value Reference Range Interpretation Comments RDW (test code = RDW) 14.3 11.5-14.5 [facility] HospitalDbnmumpAADNORZNCB5786-71-80 10:25:00 Test Item Value Reference Range Interpretation Comments RBC (test code = RBC) 4.53 4.20-5.40 [facility] HospitalXwdihioZDPASSHMNQ5007-87-18 10:25:00 Test Item Value Reference Range Interpretation Comments WBC (test code = WBC) 5.5 3.7-10.4 [facility] HospitalAxmpehrFQYHVHGOCY0922-76-99 10:25:00 Test Item Value Reference Range Interpretation Comments MCH (test code = MCH) 27.9 pg 27.0-31.0 [facility] HospitalDcpgxptRSXLWQTDZV4487-91-66 10:25:00 Test Item Value Reference Range Interpretation Comments MCHC (test code = MCHC) 31.5 32.0-36.0 [facility] HospitalRuacwhoQEVRQIIKES5123-86-82 10:25:00 Test Item Value Reference Range Interpretation Comments MCV (test code = MCV) 88.6 80.0-98.0 [facility] HospitalXkzjzpdHGTKIVLEEP7844-27-06 10:25:00 Test Item Value Reference Range Interpretation Comments Hct (test code = Hct) 40.2 36.0-48.0 [facility] HospitalYmvpmzfRQYXGDTNPH0056-85-59 10:25:00 Test Item Value Reference Range Interpretation Comments Hgb (test code = Hgb) 12.6 12.0-16.0 [facility] Hospit[id number] 10:25:00 Test Item Value Reference Range Interpretation Comments Eosinophils # (test code 0.2 See_Comment [A utomated message] The = Eosinophils #) system whic h generated this result tra nsmitted reference range : <=0.5. The reference r melody was not used to int erpret this result as normal/abnormal . [facility] HospitalLjctiuzANYJOIZCMD2690-50-77 10:25:00 Test Item Value Reference Range Interpretation Comments Lymphocytes # (test code = Lymphocytes 2.0 1.0-5.5 #) [facility] HospitalOxxadtqKZJPFJHJQG5580-81-94 10:25:00 Test Item Value Reference Range Interpretation Comments Basophils (test code = 0.9 See_Comment [Aut omated message] The Basophils) system which ge nerated this result tra nsmitted reference range : <=1.0. The reference r melody was not used to int erpret this result as normal/abnormal . [facility] HospitalFxdjfuiAIZDMAOZYF5932-63-86 10:25:00 Test Item Value Reference Range Interpretation Comments Monocytes # (test code 0.6 See_Comment [Aut omated message] The = Monocytes #) system which generated this result tra nsmitted reference range : <=0.8. The reference r melody was not used to int erpret this result as normal/abnormal . [facility] HospitalHquugovWVXDZUAUKR5675-79-56 10:25:00 Test Item Value Reference Range Interpretation Comments Segs-Bands # (test code = Segs-Bands #) 2.6 1.5-8.1 [facility] HospitalLejtiwfWGURWVLVAX3631-21-87 10:25:00 Test Item Value Reference Range Interpretation Comments Monocytes (test code = Monocytes) 11.0 2.0-12.0 [place] [address]-11-18 10:25:00 Test Item Value Reference Range Interpretation Comments Eosinophils (test code = 4.0 See_Comment [A utomated message] The Eosinophils) system which ge nerated this result tra nsmitted reference range : <=4.0. The reference r melody was not used to int erpret this result as normal/abnormal . [facility]XprqbpxKHPRLYXWPA6887-44-71 10:25:00 Test Item Value Reference Range Interpretation Comments Lymphocytes (test code = Lymphocytes) 36.1 20.0-40.0 [facility] CenterRcvhagqDCEFEQSJRP5730-92-05 10:25:00 Test Item Value Reference Range Interpretation Comments Segs (test code = Segs) 48.0 45.0-75.0 [facility] CenterFpkkautQOZKORTULC5434-98-97 10:25:00 Test Item Value Reference Range Interpretation Comments Basophils # (test code 0.1 See_Comment [Aut omated message] The = Basophils #) system which generated this result tra nsmitted reference range : <=0.2. The reference r melody was not used to int erpret this result as normal/abnormal . [facility] 04:22:00 Test Item Value Reference Range Interpretation Comments Troponin-I (test code no gt See_Comment [Auto mated message] The = Troponin-I) system which g enerated this result transmit marcelle reference range : <=0.40. The reference r melody was not used to interpr et this result as aranza l/abnormal. [facility]2015-11-18 04:22:00 Test Item Value Reference Range Interpretation Comments Total CK (test code = Total CK) 88 12-191 [facility] 04:22:00 Test Item Value Reference Range Interpretation Comments CK MB Index (test 1.1 See_Comment [Automate d message] The code = CK MB Index) system w [facility] generated this result transmit marcelle reference range : <=2.5. The reference range was not used to interpr et this result as aranza l/abnormal. [facility]2015-11-18 04:22:00 Test Item Value Reference Range Interpretation Comments CK MB (test code = CK MB) 1.0 0.5-3.6 [facility]2015-11-17 21:33:00 Test Item Value Reference Range Interpretation Comments Troponin-I (test code no gt See_Comment [Auto mated message] The = Troponin-I) system which g enerated this result transmit marcelle reference range : <=0.40. The reference r melody was not used to interpr et this result as aranza l/abnormal. [facility]2015-11-17 21:33:00 Test Item Value Reference Range Interpretation Comments CK MB (test code = CK MB) 1.2 0.5-3.6 [facility]2015-11-17 21:33:00 Test Item Value Reference Range Interpretation Comments Total CK (test code = Total CK) 103 12-191 [facility]2015-11-17 21:33:00 Test Item Value Reference Range Interpretation Comments CK MB Index (test 1.2 See_Comment [Automate d message] The code = CK MB Index) system w [facility] generated this result transmit marcelle reference range : <=2.5. The reference range was not used to interpr et this result as aranza l/abnormal. [facility]2015-11-17 21:33:00 Test Item Value Reference Range Interpretation Comments eGFR (test code = eGFR) 90 [facility] [employer]2015-11-17 21:33:00 Test Item Value Reference Range Interpretation Comments Alk Phos (test code = Alk Phos) 91 39-136 [facility] [employer]2015-11-17 21:33:00 Test Item Value Reference Range Interpretation Comments AST (test code = AST) 19 See_Comment [Auto mated message] The system which ge nerated this result transmit marcelle reference range : <=37. The reference range was not used to interpr et this result as aranza l/abnormal. [facility]2015-11-17 21:33:00 Test Item Value Reference Range Interpretation Comments ALT (test code = ALT) 17 See_Comment [Auto mated message] The system which ge nerated this result transmit marcelle reference range : <=65. The reference range was not used to interpr et this result as aranza l/abnormal. [facility]2015-11-17 21:33:00 Test Item Value Reference Range Interpretation Comments B/C Ratio (test code = B/C Ratio) 12 6-25 [facility]2015-11-17 21:33:00 Test Item Value Reference Range Interpretation Comments Bili Total (test code = Bili Total) 0.8 0.2-1.3 [facility]2015-11-17 21:33:00 Test Item Value Reference Range Interpretation Comments AGAP (test code = AGAP) 11.1 10.0-20.0 [facility]2015-11-17 21:33:00 Test Item Value Reference Range Interpretation Comments Albumin Lvl (test code = Albumin Lvl) 3.5 3.5-5.0 [facility]2015-11-17 21:33:00 Test Item Value Reference Range Interpretation Comments CO2 (test code = CO2) 27 -32 [facility]2015-11-17 21:33:00 Test Item Value Reference Range Interpretation Comments Total Protein (test code = Total 6.8 6.4-8.4 Protein) [facility]2015-11-17 21:33:00 Test Item Value Reference Range Interpretation Comments Calcium Lvl (test code = Calcium Lvl) 8.7 8.5-10.5 [facility]2015-11-17 21:33:00 Test Item Value Reference Range Interpretation Comments Globulin (test code = Globulin) 3.3 2.0-4.0 [facility]2015-11-17 21:33:00 Test Item Value Reference Range Interpretation Comments A/G Ratio (test code = A/G Ratio) 1.1 0.7-1.6 [facility]2015-11-17 21:33:00 Test Item Value Reference Range Interpretation Comments Creatinine Lvl (test code = Creatinine 0.80 0.50-1.40 Lvl) [facility]2015-11-17 21:33:00 Test Item Value Reference Range Interpretation Comments Chloride Lvl (test code = Chloride Lvl) 104 95-109 [facility]2015-11-17 21:33:00 Test Item Value Reference Range Interpretation Comments Sodium Lvl (test code = Sodium Lvl) 138 135-145 [facility]2015-11-17 21:33:00 Test Item Value Reference Range Interpretation Comments Potassium Lvl (test code = Potassium 4.1 3.5-5.1 Lvl) [facility]2015-11-17 21:33:00 Test Item Value Reference Range Interpretation Comments BUN (test code = BUN) 10 7-22 [facility]2015-11-17 21:33:00 Test Item Value Reference Range Interpretation Comments Glucose Lvl (test code = Glucose Lvl) 72 70-99 [facility] HospitalUameobpNQHXBSMUJR4428-44-58 21:33:00 Test Item Value Reference Range Interpretation Comments Segs-Bands # (test code = Segs-Bands #) 3.3 1.5-8.1 [facility] HospitalXnwblzqQAGFSDWMBJ4317-98-99 21:33:00 Test Item Value Reference Range Interpretation Comments Eosinophils # (test code 0.2 See_Comment [A utomated message] The = Eosinophils #) system whic h generated this result tra nsmitted reference range : <=0.5. The reference r melody was not used to int erpret this result as normal/abnormal . [facility] HospitalPdaraxcTAMBYQAERJ3293-39-40 21:33:00 Test Item Value Reference Range Interpretation Comments Monocytes # (test code 0.6 See_Comment [Aut omated message] The = Monocytes #) system which generated this result tra nsmitted reference range : <=0.8. The reference r melody was not used to int erpret this result as normal/abnormal . [facility] HospitalThsafcvKCWPVJLNNW8371-16-10 21:33:00 Test Item Value Reference Range Interpretation Comments Lymphocytes # (test code = Lymphocytes 2.3 1.0-5.5 #) [facility] HospitalGoscdvtYTRLAUYZYP3858-72-83 21:33:00 Test Item Value Reference Range Interpretation Comments Segs (test code = Segs) 51.8 45.0-75.0 [place] 030395-11-17 21:33:00 Test Item Value Reference Range Interpretation Comments Basophils (test code = 0.6 See_Comment [Aut omated message] The Basophils) system which ge nerated this result tra nsmitted reference range : <=1.0. The reference r melody was not used to int erpret this result as normal/abnormal . [facility] HospitalCveuebnSOUWCLOCEC8684-48-77 21:33:00 Test Item Value Reference Range Interpretation Comments Eosinophils (test code = 3.1 See_Comment [A utomated message] The Eosinophils) system which ge nerated this result tra nsmitted reference range : <=4.0. The reference r melody was not used to int erpret this result as normal/abnormal . [facility] HospitalMlcsbrlIWCLKWPHGX9744-22-49 21:33:00 Test Item Value Reference Range Interpretation Comments Monocytes (test code = Monocytes) 9.4 2.0-12.0 [facility] HospitalYldzjueLKQWIBKXYS9296-74-66 21:33:00 Test Item Value Reference Range Interpretation Comments Lymphocytes (test code = Lymphocytes) 35.1 20.0-40.0 [facility] HospitalOankfybIKZURLKJGQ3488-35-41 21:33:00 Test Item Value Reference Range Interpretation Comments Basophils # (test code 0.0 See_Comment [Aut omated message] The = Basophils #) system which generated this result tra nsmitted reference range : <=0.2. The reference r melody was not used to int erpret this result as normal/abnormal . [facility] HospitalEnquiylBDJORCZHRH5540-36-79 21:33:00 Test Item Value Reference Range Interpretation Comments MPV (test code = MPV) 9.1 7.4-10.4 [facility] HospitalJbzilqsOPRWZATCLS9664-74-83 21:33:00 Test Item Value Reference Range Interpretation Comments MCV (test code = MCV) 87.6 80.0-98.0 [facility] HospitalSwxwcjzHCHFHZWFDZ0042-77-49 21:33:00 Test Item Value Reference Range Interpretation Comments Hgb (test code = Hgb) 12.9 12.0-16.0 [facility] HospitalJgffvwmHLDWOTGPLF6927-93-64 21:33:00 Test Item Value Reference Range Interpretation Comments Hct (test code = Hct) 39.8 36.0-48.0 [facility] HospitalVsmrivbQFBLYEAWKQ9784-21-09 21:33:00 Test Item Value Reference Range Interpretation Comments MCHC (test code = MCHC) 32.3 32.0-36.0 [facility] HospitalWdmzbfkGQTFXSLFQN3696-82-81 21:33:00 Test Item Value Reference Range Interpretation Comments RDW (test code = RDW) 14.8 11.5-14.5 [facility] HospitalInhpcklXLVARSYHFD5477-78-40 21:33:00 Test Item Value Reference Range Interpretation Comments MCH (test code = MCH) 28.3 pg 27.0-31.0 [facility] HospitalOguawynHARUNQXEDA4431-72-35 21:33:00 Test Item Value Reference Range Interpretation Comments Platelet (test code = Platelet) 171 133-450 [facility]XbfniusIJZOSCPYNC5929-84-25 21:33:00 Test Item Value Reference Range Interpretation Comments RBC (test code = RBC) 4.54 4.20-5.40 [facility]FnfzakgFIQHKZVXUR4953-00-59 21:33:00 Test Item Value Reference Range Interpretation Comments WBC (test code = WBC) 6.4 3.7-10.4 [facility] CenterFkyrcxoHJPZNFITOS6367-63-95 19:18:00 Test Item Value Reference Range Interpretation Comments CDC HIV 4th GEN (test Negative (05/18/15 2:18 code = CDC HIV 4th PM) GEN) [facility] CenterCARDIAC FHYMZDZ7263-13-54 18:26:00 Test Item Value Reference Range Interpretation Comments Troponin-I (test code no gt See_Comment [Auto mated message] The = Troponin-I) system which g enerated this result transmit marcelle reference range : <=0.40. The reference r melody was not used to interpr et this result as aranza l/abnormal. [facility] [id number] 18:26:00 Test Item Value Reference Range Interpretation Comments Bili Direct (test code 0.1 See_Comment [Aut omated message] The = Bili Direct) system which generated this result tra nsmitted reference range : <=0.3. The reference r melody was not used to int erpret this result as aranza l/abnormal. [facility] [id number] 18:26:00 Test Item Value Reference Range Interpretation Comments Globulin (test code = Globulin) 3.9 2.0-4.0 [facility] [id number] 18:26:00 Test Item Value Reference Range Interpretation Comments Alk Phos (test code = Alk Phos) 105 39-136 [facility] [id number] 18:26:00 Test Item Value Reference Range Interpretation Comments Bili Total (test code = Bili Total) 0.5 0.2-1.3 [facility] [id number] 18:26:00 Test Item Value Reference Range Interpretation Comments AST (test code = AST) 22 See_Comment [Auto mated message] The system which ge nerated this result transmit marcelle reference range : <=37. The reference range was not used to interpr et this result as aranza l/abnormal. [facility]2015-09-20 18:26:00 Test Item Value Reference Range Interpretation Comments ALT (test code = ALT) 18 See_Comment [Auto mated message] The system which ge nerated this result transmit marcelle reference range : <=65. The reference range was not used to interpr et this result as aranza l/abnormal. [facility]2015-09-20 18:26:00 Test Item Value Reference Range Interpretation Comments Total Protein (test code = Total 7.9 6.4-8.4 Protein) [facility]2015-09-20 18:26:00 Test Item Value Reference Range Interpretation Comments Albumin Lvl (test code = Albumin Lvl) 4.0 3.5-5.0 [facility]2015-09-20 18:26:00 Test Item Value Reference Range Interpretation Comments Bili Indirect (test 0.4 See_Comment [Automa marcelle message] The code = Bili Indirect) system which generated this result tra nsmitted reference range : <=1.0. The reference r melody was not used to int erpret this result as normal/abnormal . [facility]2015-09-20 18:26:00 Test Item Value Reference Range Interpretation Comments A/G Ratio (test code = A/G Ratio) 1.0 0.7-1.6 [place] 661905-09-20 18:26:00 Test Item Value Reference Range Interpretation Comments Lipase Lvl (test code = Lipase Lvl) 266 73-393 [facility]2015-09-20 18:26:00 Test Item Value Reference Range Interpretation Comments eGFR (test code = eGFR) 78 [place] 661905-09-20 18:26:00 Test Item Value Reference Range Interpretation Comments Sodium Lvl (test code = Sodium Lvl) 138 135-145 [facility]2015-09-20 18:26:00 Test Item Value Reference Range Interpretation Comments Potassium Lvl (test code = Potassium 3.9 3.5-5.1 Lvl) [facility]2015-09-20 18:26:00 Test Item Value Reference Range Interpretation Comments Creatinine Lvl (test code = Creatinine 0.9 0.5-1.4 Lvl) [facility]2015-09-20 18:26:00 Test Item Value Reference Range Interpretation Comments Glucose Lvl (test code = Glucose Lvl) 87 70-99 [facility]2015-09-20 18:26:00 Test Item Value Reference Range Interpretation Comments BUN (test code = BUN) 7 7-22 [facility]2015-09-20 18:26:00 Test Item Value Reference Range Interpretation Comments Chloride Lvl (test code = Chloride Lvl) 103 95-109 [facility]2015-09-20 18:26:00 Test Item Value Reference Range Interpretation Comments CO2 (test code = CO2) 28 24-32 [facility]2015-09-20 18:26:00 Test Item Value Reference Range Interpretation Comments Calcium Lvl (test code = Calcium Lvl) 10.2 8.5-10.5 [facility]2015-09-20 18:26:00 Test Item Value Reference Range Interpretation Comments AGAP (test code = AGAP) 10.9 10.0-20.0 [id number] 18:26:00 Test Item Value Reference Range Interpretation Comments Hgb (test code = Hgb) 14.2 12.0-16.0 [facility] HospitalCdvjgfbHVXEVSYSIZ9618-06-58 18:26:00 Test Item Value Reference Range Interpretation Comments RBC (test code = RBC) 4.96 4.20-5.40 [facility] HospitalXaezihkUGEZUZIYAU9645-98-15 18:26:00 Test Item Value Reference Range Interpretation Comments MCH (test code = MCH) 28.7 pg 27.0-31.0 [facility] Hospit[id number] 18:26:00 Test Item Value Reference Range Interpretation Comments MCHC (test code = MCHC) 32.9 32.0-36.0 [facility] Hospit[id number] 18:26:00 Test Item Value Reference Range Interpretation Comments Hct (test code = Hct) 43.3 36.0-48.0 [facility] HospitalKzojbmaFMJGSMMWPB8964-09-58 18:26:00 Test Item Value Reference Range Interpretation Comments MCV (test code = MCV) 87.2 80.0-98.0 [facility] HospitalCrzongsRQZFIFOKWV8502-66-01 18:26:00 Test Item Value Reference Range Interpretation Comments WBC (test code = WBC) 6.8 3.7-10.4 [facility] HospitalTizxvhpHNNCYUDGEM8160-62-62 18:26:00 Test Item Value Reference Range Interpretation Comments Platelet (test code = Platelet) 215 133-450 [facility] HospitalAujmbjxDMUCRVETQU5319-65-51 18:26:00 Test Item Value Reference Range Interpretation Comments MPV (test code = MPV) 8.2 7.4-10.4 [facility] HospitalPupcbcaGIEABZZPLE1832-65-08 18:26:00 Test Item Value Reference Range Interpretation Comments RDW (test code = RDW) 14.5 11.5-14.5 [facility] HospitalIfkzzarUBCKGPOXKX9294-81-71 18:26:00 Test Item Value Reference Range Interpretation Comments Segs (test code = Segs) 55.6 45.0-75.0 [facility] HospitalRmsuoexFWIPVUOJVA4507-59-57 18:26:00 Test Item Value Reference Range Interpretation Comments Lymphocytes (test code = Lymphocytes) 32.7 20.0-40.0 [facility] HospitalBjumkprKHRTKRSFZX7061-13-48 18:26:00 Test Item Value Reference Range Interpretation Comments Monocytes (test code = Monocytes) 8.5 2.0-12.0 [facility] HospitalOqaowelKRPKPWLMTI9299-56-68 18:26:00 Test Item Value Reference Range Interpretation Comments Segs-Bands # (test code = Segs-Bands #) 3.8 1.5-8.1 [facility] HospitalLzolukfXWIUSKGSHQ9584-97-36 18:26:00 Test Item Value Reference Range Interpretation Comments Basophils (test code = 0.6 See_Comment [Aut omated message] The Basophils) system which ge nerated this result tra nsmitted reference range : <=1.0. The reference r melody was not used to int erpret this result as normal/abnormal . [facility] HospitalSdhdxztRGXVIXXRKI5765-14-16 18:26:00 Test Item Value Reference Range Interpretation Comments Lymphocytes # (test code = Lymphocytes 2.2 1.0-5.5 #) [facility] HospitalKvqovouKFRQNEFTWE3779-52-01 18:26:00 Test Item Value Reference Range Interpretation Comments Eosinophils (test code = 2.6 See_Comment [A utomated message] The Eosinophils) system which ge nerated this result tra nsmitted reference range : <=4.0. The reference r melody was not used to int erpret this result as normal/abnormal . [facility] CenterSexchhrEPFFSMALXH8919-45-27 18:26:00 Test Item Value Reference Range Interpretation Comments Eosinophils # (test code 0.2 See_Comment [A utomated message] The = Eosinophils #) system whic h generated this result tra nsmitted reference range : <=0.5. The reference r melody was not used to int erpret this result as normal/abnormal . [facility]NH[facility]HALCYW7916[facility] 18:26:00 Test Item Value Reference Range Interpretation Comments Monocytes # (test code 0.6 See_Comment [Aut omated message] The = Monocytes #) system which generated this result tra nsmitted reference range : <=0.8. The reference r melody was not used to int erpret this result as normal/abnormal . [facility] CenterGfnodfxRHPXPWCHOX2499-87-23 18:26:00 Test Item Value Reference Range Interpretation Comments [place]-Hep C Ab (test Positive *NA*(05/18/15 code = [place]-Hep C 1:26 PM) Ab) [facility] CenterYxjigrvAJYJGYEPMZ7445-99-13 18:26:00 Test Item Value Reference Range Interpretation Comments [place] HCV RNA Virload (test code = 955524 [place] HCV RNA Virload) [facility] CenterJranqgtJKPETWXPRZ2596-64-93 18:26:00 Test Item Value Reference Range Interpretation Comments [place] HCV RNA Log10 (test code = 5.5 [place] HCV RNA Log10) [facility] CenterCARDIAC [id number] 18:51:00 Test Item Value Reference Range Interpretation Comments Troponin-I (test code no gt See_Comment [Auto mated message] The = Troponin-I) system which g enerated this result transmit marcelle reference range : <=0.40. The reference r melody was not used to interpr et this result as aranza l/abnormal. [facility] CenterannCHEM [id number] 18:51:00 Test Item Value Reference Range Interpretation Comments eGFR (test code = eGFR) 90 [facility] CenterCHEM [id number] 18:51:00 Test Item Value Reference Range Interpretation Comments CO2 (test code = CO2) 28 24-32 [facility] CenterCHE[facility] [id number] 18:51:00 Test Item Value Reference Range Interpretation Comments Calcium Lvl (test code = Calcium Lvl) 9.6 8.5-10.5 [facility]2015-09-11 18:51:00 Test Item Value Reference Range Interpretation Comments Chloride Lvl (test code = Chloride Lvl) 105 95-109 [facility]2015-09-11 18:51:00 Test Item Value Reference Range Interpretation Comments Creatinine Lvl (test code = Creatinine 0.8 0.5-1.4 Lvl) [facility]2015-09-11 18:51:00 Test Item Value Reference Range Interpretation Comments Sodium Lvl (test code = Sodium Lvl) 139 135-145 [facility]2015-09-11 18:51:00 Test Item Value Reference Range Interpretation Comments Potassium Lvl (test code = Potassium 3.7 3.5-5.1 Lvl) [facility]2015-09-11 18:51:00 Test Item Value Reference Range Interpretation Comments Glucose Lvl (test code = Glucose Lvl) 102 70-99 [facility]2015-09-11 18:51:00 Test Item Value Reference Range Interpretation Comments BUN (test code = BUN) 7 7-22 [facility]2015-09-11 18:51:00 Test Item Value Reference Range Interpretation Comments AGAP (test code = AGAP) 9.7 10.0-20.0 [facility] HospitalHvonzzaXQNLVUDAJA7975-81-26 18:51:00 Test Item Value Reference Range Interpretation Comments RDW (test code = RDW) 14.4 11.5-14.5 [facility] HospitalEgpznmbVFFMKGASLK8284-88-07 18:51:00 Test Item Value Reference Range Interpretation Comments MCHC (test code = MCHC) 32.5 32.0-36.0 [facility] HospitalCoqapcsVUHFOZEXPF2413-17-43 18:51:00 Test Item Value Reference Range Interpretation Comments MCH (test code = MCH) 28.7 pg 27.0-31.0 [facility] HospitalTrlhnpfGBTMRXJVVD5052-42-75 18:51:00 Test Item Value Reference Range Interpretation Comments Platelet (test code = Platelet) 202 133-450 [facility] HospitalKdoxpysIHBMECSJPL5355-31-93 18:51:00 Test Item Value Reference Range Interpretation Comments MPV (test code = MPV) 7.6 7.4-10.4 [facility] HospitalQmlfemdTNIDTZMANG3777-92-94 18:51:00 Test Item Value Reference Range Interpretation Comments MCV (test code = MCV) 88.2 80.0-98.0 [facility] HospitalDgrgbjcEDZPBLIYRK9529-54-78 18:51:00 Test Item Value Reference Range Interpretation Comments Hct (test code = Hct) 41.9 36.0-48.0 [facility] HospitalZsovtxuJGKAMFYLMV5755-37-38 18:51:00 Test Item Value Reference Range Interpretation Comments RBC (test code = RBC) 4.75 4.20-5.40 [facility] HospitalDgkodgnIRCWJXWCVZ8790-59-51 18:51:00 Test Item Value Reference Range Interpretation Comments Hgb (test code = Hgb) 13.6 12.0-16.0 [facility] HospitalZynjcvcZNXJARDPXV8245-03-93 18:51:00 Test Item Value Reference Range Interpretation Comments WBC (test code = WBC) 5.6 3.7-10.4 [facility] HospitalTseckheLSJPWKPMNC0981-40-95 18:51:00 Test Item Value Reference Range Interpretation Comments Lymphocytes # (test code = Lymphocytes 2.1 1.0-5.5 #) [facility] HospitalXrexbxoNBIYMQLZDO1550-75-29 18:51:00 Test Item Value Reference Range Interpretation Comments Basophils # (test code 0.1 See_Comment [Aut omated message] The = Basophils #) system which generated this result tra nsmitted reference range : <=0.2. The reference r melody was not used to int erpret this result as normal/abnormal . [facility] HospitalQvgxuefPJJTDPODHC7085-30-42 18:51:00 Test Item Value Reference Range Interpretation Comments Eosinophils # (test code 0.2 See_Comment [A utomated message] The = Eosinophils #) system whic h generated this result tra nsmitted reference range : <=0.5. The reference r melody was not used to int erpret this result as normal/abnormal . [facility] Hospit[id number] 18:51:00 Test Item Value Reference Range Interpretation Comments Monocytes # (test code 0.4 See_Comment [Aut omated message] The = Monocytes #) system which generated this result tra nsmitted reference range : <=0.8. The reference r melody was not used to int erpret this result as normal/abnormal . [facility] HospitalBjeoyndAAHVNEKVZM7777-52-23 18:51:00 Test Item Value Reference Range Interpretation Comments Segs (test code = Segs) 50.8 45.0-75.0 [facility] HospitalYsbisflKSQQMOOZUV8684-12-68 18:51:00 Test Item Value Reference Range Interpretation Comments Eosinophils (test code = 2.8 See_Comment [A utomated message] The Eosinophils) system which ge nerated this result tra nsmitted reference range : <=4.0. The reference r melody was not used to int erpret this result as normal/abnormal . [facility] HospitalFwufpiqFJFQVOQWXP7493-33-66 18:51:00 Test Item Value Reference Range Interpretation Comments Segs-Bands # (test code = Segs-Bands #) 2.9 1.5-8.1 [facility] HospitalOmfrnluKWUXGEOMBR5586-38-24 18:51:00 Test Item Value Reference Range Interpretation Comments Basophils (test code = 1.1 See_Comment [Aut omated message] The Basophils) system which ge nerated this result tra nsmitted reference range : <=1.0. The reference r melody was not used to int erpret this result as normal/abnormal . [facility] HospitalHcjjqshTDUGCGOIKO2044-00-38 18:51:00 Test Item Value Reference Range Interpretation Comments Monocytes (test code = Monocytes) 7.7 2.0-12.0 [facility] HospitalBglczuqNLSHZRBSBJ1336-73-06 18:51:00 Test Item Value Reference Range Interpretation Comments Lymphocytes (test code = Lymphocytes) 37.6 20.0-40.0 [facility]CARD[facility] [id number] 22:03:00 Test Item Value Reference Range Interpretation Comments Troponin-I (test code no gt See_Comment [Auto mated message] The = Troponin-I) system which g enerated this result transmit marcelle reference range : <=0.40. The reference r melody was not used to interpr et this result as aranza l/abnormal. [facility] CenterCHE[facility] [id number] 22:03:00 Test Item Value Reference Range Interpretation Comments Phosphorus (test code = Phosphorus) 3.2 2.5-4.5 [facility] CenterCHE[facility] [id number] 22:03:00 Test Item Value Reference Range Interpretation Comments Magnesium Lvl (test code = Magnesium 2.1 1.8-2.4 Lvl) [facility] CenterAusizcgRXQWBBMTRYWG7068-06-86 22:03:00 Test Item Value Reference Range Interpretation Comments AGAP (test code = AGAP) 12.4 10.0-20.0 [facility]NhntklxWDSEUUWGDHTI7314-45-31 22:03:00 Test Item Value Reference Range Interpretation Comments eGFR (test code = eGFR) 68 [facility] HospitalKxplpanWAWPCUJBYFIF7988-34-13 22:03:00 Test Item Value Reference Range Interpretation Comments Chloride Lvl (test code = Chloride Lvl) 104 95-109 [facility] HospitalTpqthouQHNKCNGSPHDB0177-30-59 22:03:00 Test Item Value Reference Range Interpretation Comments Sodium Lvl (test code = Sodium Lvl) 141 135-145 [facility] HospitalHblibviUBFTGXHDDATH9677-71-77 22:03:00 Test Item Value Reference Range Interpretation Comments CO2 (test code = CO2) 28 24-32 [facility] HospitalCxthndiRXJUAWWNFXVD3422-13-86 22:03:00 Test Item Value Reference Range Interpretation Comments Calcium Lvl (test code = Calcium Lvl) 8.8 8.5-10.5 [facility] HospitalFhfgzlzCHIXKKLZEODH2913-93-00 22:03:00 Test Item Value Reference Range Interpretation Comments Potassium Lvl (test code = Potassium 3.4 3.5-5.1 Lvl) [facility] HospitalJpfftbhELBVDZWYZOTV2167-31-29 22:03:00 Test Item Value Reference Range Interpretation Comments Creatinine Lvl (test code = Creatinine 0.9 0.5-1.4 Lvl) [facility] HospitalMmqnrhzGRQPNRPOCLCW7668-24-11 22:03:00 Test Item Value Reference Range Interpretation Comments Glucose Lvl (test code = Glucose Lvl) 92 70-99 [facility] HospitalCcghtnuKPXDPKMXDDUA1275-75-56 22:03:00 Test Item Value Reference Range Interpretation Comments BUN (test code = BUN) 6 7-22 [facility] HospitalBjkjuceYRYXRUWOMR5442-25-28 22:03:00 Test Item Value Reference Range Interpretation Comments MPV (test code = MPV) 8.0 7.4-10.4 [facility] HospitalNesbvubRHPTSBHFGZ1022-06-71 22:03:00 Test Item Value Reference Range Interpretation Comments RDW (test code = RDW) 14.1 11.5-14.5 [facility] HospitalRgshpcoWTHOQFRVQG0659-49-29 22:03:00 Test Item Value Reference Range Interpretation Comments Platelet (test code = Platelet) 212 133-450 [facility] HospitalZngjsqaSFKHYALXFB9870-64-44 22:03:00 Test Item Value Reference Range Interpretation Comments MCHC (test code = MCHC) 32.6 32.0-36.0 [facility] HospitalLapdlqmWRYTKXNQOZ2533-44-23 22:03:00 Test Item Value Reference Range Interpretation Comments WBC (test code = WBC) 8.0 3.7-10.4 [facility] HospitalNqlvwmpMZBEUVWQLD9379-47-72 22:03:00 Test Item Value Reference Range Interpretation Comments Hct (test code = Hct) 40.2 36.0-48.0 [facility] HospitalQjlalftJTNRXODISH5635-21-48 22:03:00 Test Item Value Reference Range Interpretation Comments MCV (test code = MCV) 87.4 80.0-98.0 [facility] HospitalBxgcgvuAJAZMWEDZV1348-65-55 22:03:00 Test Item Value Reference Range Interpretation Comments Hgb (test code = Hgb) 13.1 12.0-16.0 [facility] HospitalIafchnxXJIPGLPSVQ4688-54-40 22:03:00 Test Item Value Reference Range Interpretation Comments RBC (test code = RBC) 4.60 4.20-5.40 [facility] HospitalYpscfctCBHIDTDKQA3491-41-19 22:03:00 Test Item Value Reference Range Interpretation Comments MCH (test code = MCH) 28.5 pg 27.0-31.0 [facility] HospitalJkhjzbjBTGVWOTQVM0701-68-22 22:03:00 Test Item Value Reference Range Interpretation Comments Lymphocytes (test code = Lymphocytes) 26.3 20.0-40.0 [facility] HospitalZohmagrXGVHMFKXYU0463-24-71 22:03:00 Test Item Value Reference Range Interpretation Comments Segs (test code = Segs) 60.9 45.0-75.0 [facility] HospitalSyikqxuPFHDZPJYFL9399-41-88 22:03:00 Test Item Value Reference Range Interpretation Comments Basophils (test code = 1.0 See_Comment [Aut omated message] The Basophils) system which ge nerated this result tra nsmitted reference range : <=1.0. The reference r melody was not used to int erpret this result as normal/abnormal . [facility] HospitalYieoxfmSFEQABRLCO8953-13-01 22:03:00 Test Item Value Reference Range Interpretation Comments Eosinophils (test code = 3.0 See_Comment [A utomated message] The Eosinophils) system which ge nerated this result tra nsmitted reference range : <=4.0. The reference r melody was not used to int erpret this result as normal/abnormal . [facility] HospitalNnxjjxgGYYRZUEPWQ2183-11-09 22:03:00 Test Item Value Reference Range Interpretation Comments Monocytes (test code = Monocytes) 8.8 2.0-12.0 [facility] HospitalMkkdrcaZKVGAOPBXA5184-33-39 22:03:00 Test Item Value Reference Range Interpretation Comments Monocytes # (test code 0.7 See_Comment [Aut omated message] The = Monocytes #) system which generated this result tra nsmitted reference range : <=0.8. The reference r melody was not used to int erpret this result as normal/abnormal . [facility] HospitalKwdhcldOVZLOKXMQP2712-98-97 22:03:00 Test Item Value Reference Range Interpretation Comments Eosinophils # (test code 0.2 See_Comment [A utomated message] The = Eosinophils #) system whic h generated this result tra nsmitted reference range : <=0.5. The reference r melody was not used to int erpret this result as normal/abnormal . [facility] HospitalOnaajlfENOPLUARXU3548-93-78 22:03:00 Test Item Value Reference Range Interpretation Comments Lymphocytes # (test code = Lymphocytes 2.1 1.0-5.5 #) [facility] HospitalStixstgLGBOQLIAPB4340-36-10 22:03:00 Test Item Value Reference Range Interpretation Comments Segs-Bands # (test code = Segs-Bands #) 4.9 1.5-8.1 [facility] HospitalCmpettaBLEMWXGUVF0404-09-84 22:03:00 Test Item Value Reference Range Interpretation Comments Basophils # (test code 0.1 See_Comment [Aut omated message] The = Basophils #) system which generated this result tra nsmitted reference range : <=0.2. The reference r melody was not used to int erpret this result as normal/abnormal . [facility]2015-09-04 21:38:00 Test Item Value Reference Range Interpretation Comments UA Nitrite (test code Negative (05/02/15 4:38 = UA Nitrite) PM) [facility] AND [id number] 21:38:00 Test Item Value Reference Range Interpretation Comments UA WBC (test code = UA WBC) 0-2 /HPF [facility]2015-09-04 21:38:00 Test Item Value Reference Range Interpretation Comments UA Leuk Est (test Moderate *ABN*(05/02/15 code = UA Leuk Est) 4:38 PM) [facility] AND [id number] 21:38:00 Test Item Value Reference Range Interpretation Comments UA RBC (test None Seen See_Comment [Automated [place]] code = UA RBC) (05/02/15 4:38 PM) The syste m which generated this result transmitted ref erence range: <=2. The reference range was not used to int erpret this result as normal/abnormal . [facility] AND [id number] 21:38:00 Test Item Value Reference Range Interpretation Comments UA Sq Epi (test code = UA Sq Occasional /LPF Epi) [facility] AND [id number] 21:38:00 Test Item Value Reference Range Interpretation Comments UA Bacteria (test code = None Seen (05/02/15 UA Bacteria) 4:38 PM) [facility] AND [id number] 21:38:00 Test Item Value Reference Range Interpretation Comments UA Mucus (test code = UA Mucus) Rare /LPF [facility] AND [id number] 21:38:00 Test Item Value Reference Range Interpretation Comments UA Glucose (test code Negative (05/02/15 4:38 = UA Glucose) PM) [facility] AND [id number] 21:38:00 Test Item Value Reference Range Interpretation Comments UA Ketones (test code Negative *NA*(05/02/15 = UA Ketones) 4:38 PM) [facility] AND [id number] 21:38:00 Test Item Value Reference Range Interpretation Comments UA Urobilinogen (test code = UA 0.2 0.1-1.0 Urobilinogen) [facility] AND [id number] 21:38:00 Test Item Value Reference Range Interpretation Comments UA Blood (test code = Negative (05/02/15 4:38 UA Blood) PM) [facility] AND [id number] 21:38:00 Test Item Value Reference Range Interpretation Comments UA Bili (test code = Negative *NA*(05/02/15 UA Bili) 4:38 PM) [facility] AND [id number] 21:38:00 Test Item Value Reference Range Interpretation Comments UA Color (test code = Yellow *NA*(05/02/15 4:38 UA Color) PM) [facility] AND [id number] 21:38:00 Test Item Value Reference Range Interpretation Comments UA pH (test code = UA pH) 6.0 1 5.0-8.0 [facility] AND [id number] 21:38:00 Test Item Value Reference Range Interpretation Comments UA Turbidity (test code Slight Cloudy (05/02/15 = UA Turbidity) 4:38 PM) [facility] AND [id number] 21:38:00 Test Item Value Reference Range Interpretation Comments UA Protein (test code Negative (05/02/15 4:38 = UA Protein) PM) [facility] AND [id number] 21:38:00 Test Item Value Reference Range Interpretation Comments UA Spec Grav (test code = UA Spec 1.[address] [facility]2015-07-27 09:28:00 Test Item Value Reference Range Interpretation Comments Lipase Lvl (test code = Lipase Lvl) 188 73-393 [facility]2015-07-27 09:28:00 Test Item Value Reference Range Interpretation Comments eGFR (test code = eGFR) 106 [facility]2015-07-27 09:28:00 Test Item Value Reference Range Interpretation Comments Creatinine Lvl (test code = Creatinine 0.7 0.5-1.4 Lvl) [facility]2015-07-27 09:28:00 Test Item Value Reference Range Interpretation Comments BUN (test code = BUN) 4 7-22 [facility]2015-07-27 09:28:00 Test Item Value Reference Range Interpretation Comments Potassium Lvl (test code = Potassium 3.2 3.5-5.1 Lvl) [facility]2015-07-27 09:28:00 Test Item Value Reference Range Interpretation Comments Sodium Lvl (test code = Sodium Lvl) 142 135-145 [facility]2015-07-27 09:28:00 Test Item Value Reference Range Interpretation Comments Glucose Lvl (test code = Glucose Lvl) 91 70-99 [facility]2015-07-27 09:28:00 Test Item Value Reference Range Interpretation Comments Albumin Lvl (test code = Albumin Lvl) 3.5 3.5-5.0 [facility]2015-07-27 09:28:00 Test Item Value Reference Range Interpretation Comments Total Protein (test code = Total 6.6 6.4-8.4 Protein) [facility]2015-07-27 09:28:00 Test Item Value Reference Range Interpretation Comments Chloride Lvl (test code = Chloride Lvl) 107 95-109 [facility]2015-07-27 09:28:00 Test Item Value Reference Range Interpretation Comments Calcium Lvl (test code = Calcium Lvl) 9.1 8.5-10.5 [facility]2015-07-27 09:28:00 Test Item Value Reference Range Interpretation Comments CO2 (test code = CO2) 27 24-32 [facility]2015-07-27 09:28:00 Test Item Value Reference Range Interpretation Comments AGAP (test code = AGAP) 11.2 10.0-20.0 [facility]2015-07-27 09:28:00 Test Item Value Reference Range Interpretation Comments AST (test code = AST) 21 See_Comment [Auto mated message] The system which ge nerated this result transmit marcelle reference range : <=37. The reference range was not used to interpr et this result as aranza l/abnormal. [facility]2015-07-27 09:28:00 Test Item Value Reference Range Interpretation Comments ALT (test code = ALT) 34 See_Comment [Auto mated message] The system which ge nerated this result transmit marcelle reference range : <=65. The reference range was not used to interpr et this result as aranza l/abnormal. [facility]2015-07-27 09:28:00 Test Item Value Reference Range Interpretation Comments Bili Total (test code = Bili Total) 0.6 0.2-1.3 [facility]2015-07-27 09:28:00 Test Item Value Reference Range Interpretation Comments Alk Phos (test code = Alk Phos) 95 39-136 [facility]2015-07-27 09:28:00 Test Item Value Reference Range Interpretation Comments B/C Ratio (test code = B/C Ratio) 6 6-25 [place] [id number] 09:28:00 Test Item Value Reference Range Interpretation Comments A/G Ratio (test code = A/G Ratio) 1.1 0.7-1.6 [facility]2015-07-27 09:28:00 Test Item Value Reference Range Interpretation Comments Globulin (test code = Globulin) 3.1 2.0-4.0 [id number] 09:28:00 Test Item Value Reference Range Interpretation Comments Monocytes (test code = Monocytes) 11.3 2.0-12.0 [facility] HospitalKvfeykgKYFVKGHTLZ6269-43-14 09:28:00 Test Item Value Reference Range Interpretation Comments Lymphocytes (test code = Lymphocytes) 27.1 20.0-40.0 [facility] Hospit[id number] 09:28:00 Test Item Value Reference Range Interpretation Comments Eosinophils (test code = 5.9 See_Comment [A utomated message] The Eosinophils) system which ge nerated this result tra nsmitted reference range : <=4.0. The reference r melody was not used to int erpret this result as normal/abnormal . [facility] Hospit[id number] 09:28:00 Test Item Value Reference Range Interpretation Comments Segs-Bands # (test code = Segs-Bands #) 3.3 1.5-8.1 [facility] HospitalHdqalqhHELGGUUPMT1879-27-24 09:28:00 Test Item Value Reference Range Interpretation Comments Basophils (test code = 0.7 See_Comment [Aut omated message] The Basophils) system which ge nerated this result tra nsmitted reference range : <=1.0. The reference r melody was not used to int erpret this result as normal/abnormal . [facility] Hospit[id number] 09:28:00 Test Item Value Reference Range Interpretation Comments Segs (test code = Segs) 55.0 45.0-75.0 [facility] HospitalXkkmulnNMQMJZXCSR7474-67-23 09:28:00 Test Item Value Reference Range Interpretation Comments Monocytes # (test code 0.7 See_Comment [Aut omated message] The = Monocytes #) system which generated this result tra nsmitted reference range : <=0.8. The reference r melody was not used to int erpret this result as normal/abnormal . [place] [id number] 09:28:00 Test Item Value Reference Range Interpretation Comments Lymphocytes # (test code = Lymphocytes 1.6 1.0-5.5 #) [facility] HospitalDxeymapMLANAJXEWS1704-21-29 09:28:00 Test Item Value Reference Range Interpretation Comments Eosinophils # (test code 0.4 See_Comment [A utomated message] The = Eosinophils #) system whic h generated this result tra nsmitted reference range : <=0.5. The reference r melody was not used to int erpret this result as normal/abnormal . [facility] HospitalRpimvwnFCMOIEHYUI8481-12-60 09:28:00 Test Item Value Reference Range Interpretation Comments RBC (test code = RBC) 4.21 4.20-5.40 [facility] HospitalDoubpfwENCYFUHCAS2215-74-56 09:28:00 Test Item Value Reference Range Interpretation Comments WBC (test code = WBC) 5.9 3.7-10.4 [facility] HospitalXpqdiqiCGVVPTZGBF1767-76-80 09:28:00 Test Item Value Reference Range Interpretation Comments Platelet (test code = Platelet) 204 133-450 [facility] HospitalUhqyrxqKQRGUKACLM8855-02-29 09:28:00 Test Item Value Reference Range Interpretation Comments MCHC (test code = MCHC) 32.4 32.0-36.0 [facility] HospitalOjmeojmQGDPTZGLVX0419-58-01 09:28:00 Test Item Value Reference Range Interpretation Comments RDW (test code = RDW) 14.2 11.5-14.5 [facility] HospitalEnxstlkYPTMRNALAA6785-25-81 09:28:00 Test Item Value Reference Range Interpretation Comments MPV (test code = MPV) 8.6 7.4-10.4 [facility] HospitalEndgmxlBFTONXEWZJ0598-12-72 09:28:00 Test Item Value Reference Range Interpretation Comments Hct (test code = Hct) 37.2 36.0-48.0 [facility] HospitalMubkhbpXAQHJWKKEV6573-88-33 09:28:00 Test Item Value Reference Range Interpretation Comments MCV (test code = MCV) 88.3 80.0-98.0 [place] 030395-07-27 09:28:00 Test Item Value Reference Range Interpretation Comments Hgb (test code = Hgb) 12.1 12.0-16.0 [facility] HospitalNhoqfipDEKMOLXZOW8615-27-32 09:28:00 Test Item Value Reference Range Interpretation Comments MCH (test code = MCH) 28.6 pg 27.0-31.0 [facility]2015-07-26 18:14:00 Test Item Value Reference Range Interpretation Comments Occult Bld Stl (test Negative (03/23/15 1:14 code = Occult Bld Stl) PM) [facility]KO[facility]78[facility] 10:51:00 Test Item Value Reference Range Interpretation Comments Segs (test code = Segs) 60.8 45.0-75.0 [facility] HospitalMqdqnuuBMWBXJGCPC7929-02-37 10:51:00 Test Item Value Reference Range Interpretation Comments MPV (test code = MPV) 8.3 7.4-10.4 [facility] HospitalLhlneymDBASUHBBYO0580-30-70 10:51:00 Test Item Value Reference Range Interpretation Comments Platelet (test code = Platelet) 196 133-450 [facility] HospitalLpbliuxUOOOIZBDDU0398-97-32 10:51:00 Test Item Value Reference Range Interpretation Comments RDW (test code = RDW) 14.6 11.5-14.5 [facility] HospitalSzrbgibEBBLCODAYN8520-92-28 10:51:00 Test Item Value Reference Range Interpretation Comments MCV (test code = MCV) 88.0 80.0-98.0 [facility] HospitalSisbdsnKELXDCPFAX0933-66-78 10:51:00 Test Item Value Reference Range Interpretation Comments MCH (test code = MCH) 28.7 pg 27.0-31.0 [facility] HospitalKvptcamLIKQOHRJGF2931-72-54 10:51:00 Test Item Value Reference Range Interpretation Comments Hct (test code = Hct) 34.7 36.0-48.0 [facility] HospitalEwfggztBZCVDHCICL3568-96-78 10:51:00 Test Item Value Reference Range Interpretation Comments MCHC (test code = MCHC) 32.6 32.0-36.0 [facility] HospitalVdxkikoZSVFPWKEPF0368-23-79 10:51:00 Test Item Value Reference Range Interpretation Comments Hgb (test code = Hgb) 11.3 12.0-16.0 [facility] HospitalFuuhvuvRJVAZGOGXU4222-10-50 10:51:00 Test Item Value Reference Range Interpretation Comments RBC (test code = RBC) 3.94 4.20-5.40 [facility] HospitalZfchvnmCXTBTLQERY1661-21-88 10:51:00 Test Item Value Reference Range Interpretation Comments WBC (test code = WBC) 5.6 3.7-10.4 [facility] [id number] 10:51:00 Test Item Value Reference Range Interpretation Comments CK MB (test code = CK MB) 0.8 0.5-3.6 [facility] [id number] 10:51:00 Test Item Value Reference Range Interpretation Comments Total CK (test code = Total CK) 70 12-191 [facility] [id number] 10:51:00 Test Item Value Reference Range Interpretation Comments CK MB Index (test 1.1 See_Comment [Automate d message] The code = CK MB Index) system w [employer] generated this result transmit marcelle reference range : <=2.5. The reference range was not used to interpr et this result as aranza l/abnormal. [facility] [id number] 10:51:00 Test Item Value Reference Range Interpretation Comments eGFR (test code = eGFR) 106 [facility] [id number] 10:51:00 Test Item Value Reference Range Interpretation Comments CO2 (test code = CO2) 27 24-32 [facility] [id number] 10:51:00 Test Item Value Reference Range Interpretation Comments Calcium Lvl (test code = Calcium Lvl) 9.2 8.5-10.5 [facility] [id number] 10:51:00 Test Item Value Reference Range Interpretation Comments Chloride Lvl (test code = Chloride Lvl) 108 95-109 [facility] [id number] 10:51:00 Test Item Value Reference Range Interpretation Comments Sodium Lvl (test code = Sodium Lvl) 142 135-145 [facility] [id number] 10:51:00 Test Item Value Reference Range Interpretation Comments Potassium Lvl (test code = Potassium 3.5 3.5-5.1 Lvl) [facility] [id number] 10:51:00 Test Item Value Reference Range Interpretation Comments Creatinine Lvl (test code = Creatinine 0.7 0.5-1.4 Lvl) [facility] [id number] 10:51:00 Test Item Value Reference Range Interpretation Comments BUN (test code = BUN) 8 7-22 [facility]2015-07-26 10:51:00 Test Item Value Reference Range Interpretation Comments Glucose Lvl (test code = Glucose Lvl) 101 70-99 [facility]2015-07-26 10:51:00 Test Item Value Reference Range Interpretation Comments AGAP (test code = AGAP) 10.5 10.0-20.0 [facility] HospitalUbszqvqIKODCHYDYF4542-79-20 10:51:00 Test Item Value Reference Range Interpretation Comments Lymphocytes # (test code = Lymphocytes 1.3 1.0-5.5 #) [facility] HospitalCnatthlLFXBMIFJIL6176-17-16 10:51:00 Test Item Value Reference Range Interpretation Comments Segs-Bands # (test code = Segs-Bands #) 3.4 1.5-8.1 [facility] HospitalNmixkohRYAZCJFPZA6665-35-38 10:51:00 Test Item Value Reference Range Interpretation Comments Basophils (test code = 0.6 See_Comment [Aut omated message] The Basophils) system which ge nerated this result tra nsmitted reference range : <=1.0. The reference r melody was not used to int erpret this result as normal/abnormal . [facility] HospitalVqizocpLOLECTYWRE5011-55-78 10:51:00 Test Item Value Reference Range Interpretation Comments Eosinophils (test code = 4.0 See_Comment [A utomated message] The Eosinophils) system which ge nerated this result tra nsmitted reference range : <=4.0. The reference r melody was not used to int erpret this result as normal/abnormal . [facility] HospitalRioqsfwINXECQAOXO2330-59-25 10:51:00 Test Item Value Reference Range Interpretation Comments Eosinophils # (test code 0.2 See_Comment [A utomated message] The = Eosinophils #) system whic h generated this result tra nsmitted reference range : <=0.5. The reference r melody was not used to int erpret this result as normal/abnormal . [facility] Ho[id number] 10:51:00 Test Item Value Reference Range Interpretation Comments Monocytes # (test code 0.6 See_Comment [Aut omated message] The = Monocytes #) system which generated this result tra nsmitted reference range : <=0.8. The reference r melody was not used to int erpret this result as normal/abnormal . [facility] HospitalZhajefaRCIPHKBDTP6789-88-35 10:51:00 Test Item Value Reference Range Interpretation Comments Monocytes (test code = Monocytes) 11.0 2.0-12.0 [facility] HospitalCecofiaOZNBKEXANP3977-67-47 10:51:00 Test Item Value Reference Range Interpretation Comments Lymphocytes (test code = Lymphocytes) 23.6 20.0-40.0 [facility] [id number] 10:19:00 Test Item Value Reference Range Interpretation Comments CK MB Index (test 1.6 See_Comment [Automate d message] The code = CK MB Index) system w [facility] generated this result transmit marcelle reference range : <=2.5. The reference range was not used to interpr et this result as aranza l/abnormal. [facility] [id number] 10:19:00 Test Item Value Reference Range Interpretation Comments CK MB (test code = CK MB) 1.0 0.5-3.6 [facility] [id number] 10:19:00 Test Item Value Reference Range Interpretation Comments Total CK (test code = Total CK) 64 12-191 [facility]2015-07-25 10:19:00 Test Item Value Reference Range Interpretation Comments eGFR (test code = eGFR) 111 [facility]2015-07-25 10:19:00 Test Item Value Reference Range Interpretation Comments Calcium Lvl (test code = Calcium Lvl) 8.7 8.5-10.5 [facility]2015-07-25 10:19:00 Test Item Value Reference Range Interpretation Comments Sodium Lvl (test code = Sodium Lvl) 144 135-145 [facility] [id number] 10:19:00 Test Item Value Reference Range Interpretation Comments Potassium Lvl (test code = Potassium 3.9 3.5-5.1 Lvl) [facility] [id number] 10:19:00 Test Item Value Reference Range Interpretation Comments Chloride Lvl (test code = Chloride Lvl) 112 95-109 [facility]2015-07-25 10:19:00 Test Item Value Reference Range Interpretation Comments CO2 (test code = CO2) 27 24-32 [facility] [id number] 10:19:00 Test Item Value Reference Range Interpretation Comments Glucose Lvl (test code = Glucose Lvl) 94 70-99 [facility]2015-07-25 10:19:00 Test Item Value Reference Range Interpretation Comments BUN (test code = BUN) 8 7-22 [facility]2015-07-25 10:19:00 Test Item Value Reference Range Interpretation Comments Creatinine Lvl (test code = Creatinine 0.6 0.5-1.4 Lvl) [facility]2015-07-25 10:19:00 Test Item Value Reference Range Interpretation Comments AGAP (test code = AGAP) 8.9 10.0-20.0 [facility] Hospit[id number] 10:19:00 Test Item Value Reference Range Interpretation Comments Eosinophils # (test code 0.2 See_Comment [A utomated message] The = Eosinophils #) system whic h generated this result tra nsmitted reference range : <=0.5. The reference r melody was not used to int erpret this result as normal/abnormal . [facility] HospitalEplfqfbWPPVTGHEWU7605-84-66 10:19:00 Test Item Value Reference Range Interpretation Comments Monocytes # (test code 0.5 See_Comment [Aut omated message] The = Monocytes #) system which generated this result tra nsmitted reference range : <=0.8. The reference r melody was not used to int erpret this result as normal/abnormal . [facility] HospitalBlxvbzhAQKEXAYKBH8323-91-43 10:19:00 Test Item Value Reference Range Interpretation Comments Basophils (test code = 0.9 See_Comment [Aut omated message] The Basophils) system which ge nerated this result tra nsmitted reference range : <=1.0. The reference r melody was not used to int erpret this result as normal/abnormal . [facility] HospitalJrjmjmtAQERTXHWPR8720-42-88 10:19:00 Test Item Value Reference Range Interpretation Comments Monocytes (test code = Monocytes) 11.2 2.0-12.0 [facility] HospitalAjmxvarRGWLRXKCSA1901-07-23 10:19:00 Test Item Value Reference Range Interpretation Comments Segs-Bands # (test code = Segs-Bands #) 2.1 1.5-8.1 [facility] HospitalPaunptoSRBSPVPQZB4535-51-98 10:19:00 Test Item Value Reference Range Interpretation Comments Eosinophils (test code = 3.7 See_Comment [A utomated message] The Eosinophils) system which ge nerated this result tra nsmitted reference range : <=4.0. The reference r melody was not used to int erpret this result as normal/abnormal . [facility] HospitalPuvzypeQQIIYPFXPF8151-08-97 10:19:00 Test Item Value Reference Range Interpretation Comments Lymphocytes # (test code = Lymphocytes 1.6 1.0-5.5 #) [facility] HospitalNlohhshSQIUXMQYDG8142-56-32 10:19:00 Test Item Value Reference Range Interpretation Comments Segs (test code = Segs) 48.6 45.0-75.0 [facility] HospitalOockukcGMBHXGAGIQ0478-97-18 10:19:00 Test Item Value Reference Range Interpretation Comments Lymphocytes (test code = Lymphocytes) 35.6 20.0-40.0 [facility] HospitalOdgabgrYTOAFLHXZT8422-28-39 10:19:00 Test Item Value Reference Range Interpretation Comments MPV (test code = MPV) 8.9 7.4-10.4 [facility] HospitalQyskehlCEWAZYZSJA0230-34-04 10:19:00 Test Item Value Reference Range Interpretation Comments WBC (test code = WBC) 4.4 3.7-10.4 [facility] HospitalOfypzvbEKYJGZQABF5816-60-16 10:19:00 Test Item Value Reference Range Interpretation Comments MCH (test code = MCH) 29.9 pg 27.0-31.0 [facility] HospitalUovekekQFQDLERNFM9875-48-14 10:19:00 Test Item Value Reference Range Interpretation Comments MCV (test code = MCV) 86.5 80.0-98.0 [facility] HospitalLdsvkxdNXBSCMYZOC4380-01-89 10:19:00 Test Item Value Reference Range Interpretation Comments MCHC (test code = MCHC) 34.6 32.0-36.0 [facility] HospitalWdfwbhrBBHGOWOSKD9758-27-26 10:19:00 Test Item Value Reference Range Interpretation Comments Hgb (test code = Hgb) 11.7 12.0-16.0 [facility] HospitalMxepuqlDGEPTJNJII8897-23-52 10:19:00 Test Item Value Reference Range Interpretation Comments RBC (test code = RBC) 3.92 4.20-5.40 [facility] HospitalBuoebgtXZFREEUDOT2164-99-75 10:19:00 Test Item Value Reference Range Interpretation Comments Hct (test code = Hct) 33.9 36.0-48.0 [place] [id number] 10:19:00 Test Item Value Reference Range Interpretation Comments RDW (test code = RDW) 14.6 11.5-14.5 [facility] CenterAwcjgfzXPPBEOGEJB4730-83-25 10:19:00 Test Item Value Reference Range Interpretation Comments Platelet (test code = Platelet) 176 133-450 [facility] CenterBluelockAC [id number] 03:22:00 Test Item Value Reference Range Interpretation Comments CK MB Index (test 1.6 See_Comment [Automate d message] The code = CK MB Index) system w [facility] generated this result transmit marcelle reference range : <=2.5. The reference range was not used to interpr et this result as aranza l/abnormal. [facility] CenterSenstoreAC [id number] 03:22:00 Test Item Value Reference Range Interpretation Comments Total CK (test code = Total CK) 77 12-191 [facility] [id number] 03:22:00 Test Item Value Reference Range Interpretation Comments CK MB (test code = CK MB) 1.2 0.5-3.6 [facility] [id number] 02:44:00 Test Item Value Reference Range Interpretation Comments Lactic Acid Lvl (test code = Lactic 1.4 0.5-2.2 Acid Lvl) [facility] CenterSen[facility] [id number] 21:13:00 Test Item Value Reference Range Interpretation Comments Troponin-I (test code no gt See_Comment [Auto mated message] The = Troponin-I) system which g enerated this result transmit marcelle reference range : <=0.40. The reference r melody was not used to interpr et this result as aranza l/abnormal. [facility] [employer] [id number] 21:13:00 Test Item Value Reference Range Interpretation Comments Globulin (test code = Globulin) 3.3 2.0-4.0 [facility] [employer] [id number] 21:13:00 Test Item Value Reference Range Interpretation Comments A/G Ratio (test code = A/G Ratio) 1.1 0.7-1.6 [facility] [employer] [id number] 21:13:00 Test Item Value Reference Range Interpretation Comments B/C Ratio (test code = B/C Ratio) 16 6-25 [facility]2015-07-24 21:13:00 Test Item Value Reference Range Interpretation Comments Alk Phos (test code = Alk Phos) 105 39-136 [facility]2015-07-24 21:13:00 Test Item Value Reference Range Interpretation Comments AST (test code = AST) 25 See_Comment [Auto mated message] The system which ge nerated this result transmit marcelle reference range : <=37. The reference range was not used to interpr et this result as aranza l/abnormal. [facility]2015-07-24 21:13:00 Test Item Value Reference Range Interpretation Comments Bili Total (test code = Bili Total) 0.5 0.2-1.3 [facility]2015-07-24 21:13:00 Test Item Value Reference Range Interpretation Comments ALT (test code = ALT) 32 See_Comment [Auto mated message] The system which ge nerated this result transmit marcelle reference range : <=65. The reference range was not used to interpr et this result as aranza l/abnormal. [facility]2015-07-24 21:13:00 Test Item Value Reference Range Interpretation Comments Albumin Lvl (test code = Albumin Lvl) 3.7 3.5-5.0 [facility]2015-07-24 21:13:00 Test Item Value Reference Range Interpretation Comments Total Protein (test code = Total 7.0 6.4-8.4 Protein) [id number] 21:13:00 Test Item Value Reference Range Interpretation Comments Basophils # (test code 0.0 See_Comment [Aut omated message] The = Basophils #) system which generated this result tra nsmitted reference range : <=0.2. The reference r melody was not used to int erpret this result as normal/abnormal . [facility] Hospit[id number] 21:13:00 Test Item Value Reference Range Interpretation Comments INR (test code = INR) 1.04 0.85-1.17 [facility] Hospit[id number] 21:13:00 Test Item Value Reference Range Interpretation Comments PT (test code = PT) 13.6 s 12.0-14.7 [facility] HospitalMytryufZZRGPRZKEL8572-93-07 21:13:00 Test Item Value Reference Range Interpretation Comments PTT (test code = PTT) 35.2 s 22.9-35.8 [facility] [id number] 21:10:00 Test Item Value Reference Range Interpretation Comments BNP (test code = BNP) 6 [facility] [id number] 21:02:00 Test Item Value Reference Range Interpretation Comments Troponin-I (test code no gt See_Comment [Auto mated message] The = Troponin-I) system which g enerated this result transmit marcelle reference range : <=0.40. The reference r melody was not used to interpr et this result as aranza l/abnormal. [facility]CAR[facility]life[facility] [id number] 21:02:00 Test Item Value Reference Range Interpretation Comments BNP (test code = BNP) 31 [facility] [id number] 21:02:00 Test Item Value Reference Range Interpretation Comments CK MB (test code = CK MB) 0.8 0.5-3.6 [facility]uel[facility] [id number] 21:02:00 Test Item Value Reference Range Interpretation Comments Total CK (test code = Total CK) 70 12-191 [facility] [id number] 21:02:00 Test Item Value Reference Range Interpretation Comments CK MB Index (test 1.1 See_Comment [Automate d message] The code = CK MB Index) system w [facility] generated this result transmit marcelle reference range : <=2.5. The reference range was not used to interpr et this result as aranza l/abnormal. [facility] [id number] 21:02:00 Test Item Value Reference Range Interpretation Comments eGFR (test code = eGFR) 106 [facility] [employer] [id number] 21:02:00 Test Item Value Reference Range Interpretation Comments Alk Phos (test code = Alk Phos) 99 39-136 [facility] [employer] [id number] 21:02:00 Test Item Value Reference Range Interpretation Comments Bili Total (test code = Bili Total) 0.6 0.2-1.3 [facility] [employer] [id number] 21:02:00 Test Item Value Reference Range Interpretation Comments B/C Ratio (test code = B/C Ratio) 11 6-25 [facility]2015-07-14 21:02:00 Test Item Value Reference Range Interpretation Comments AGAP (test code = AGAP) 9.4 10.0-20.0 [facility]2015-07-14 21:02:00 Test Item Value Reference Range Interpretation Comments Globulin (test code = Globulin) 3.1 2.0-4.0 [facility]2015-07-14 21:02:00 Test Item Value Reference Range Interpretation Comments A/G Ratio (test code = A/G Ratio) 1.1 0.7-1.6 [facility]2015-07-14 21:02:00 Test Item Value Reference Range Interpretation Comments Glucose Lvl (test code = Glucose Lvl) 73 70-99 [facility]2015-07-14 21:02:00 Test Item Value Reference Range Interpretation Comments BUN (test code = BUN) 8 7-22 [facility]2015-07-14 21:02:00 Test Item Value Reference Range Interpretation Comments Creatinine Lvl (test code = Creatinine 0.7 0.5-1.4 Lvl) [facility]2015-07-14 21:02:00 Test Item Value Reference Range Interpretation Comments Sodium Lvl (test code = Sodium Lvl) 143 135-145 [facility]2015-07-14 21:02:00 Test Item Value Reference Range Interpretation Comments Potassium Lvl (test code = Potassium 3.4 3.5-5.1 Lvl) [facility]2015-07-14 21:02:00 Test Item Value Reference Range Interpretation Comments CO2 (test code = CO2) 28 24-32 [facility]2015-07-14 21:02:00 Test Item Value Reference Range Interpretation Comments Chloride Lvl (test code = Chloride Lvl) 109 95-109 [facility]2015-07-14 21:02:00 Test Item Value Reference Range Interpretation Comments Calcium Lvl (test code = Calcium Lvl) 8.9 8.5-10.5 [facility]2015-07-14 21:02:00 Test Item Value Reference Range Interpretation Comments Total Protein (test code = Total 6.5 6.4-8.4 Protein) [facility]2015-07-14 21:02:00 Test Item Value Reference Range Interpretation Comments Albumin Lvl (test code = Albumin Lvl) 3.4 3.5-5.0 [facility]2015-07-14 21:02:00 Test Item Value Reference Range Interpretation Comments ALT (test code = ALT) 30 See_Comment [Auto mated message] The system which ge nerated this result transmit marcelle reference range : <=65. The reference range was not used to interpr et this result as aranza l/abnormal. [facility]2015-07-14 21:02:00 Test Item Value Reference Range Interpretation Comments AST (test code = AST) 21 See_Comment [Auto mated message] The system which ge nerated this result transmit marcelle reference range : <=37. The reference range was not used to interpr et this result as aranza l/abnormal. [facility] Hospit[id number] 21:02:00 Test Item Value Reference Range Interpretation Comments RDW (test code = RDW) 15.1 11.5-14.5 [facility] HospitalInvdpkiEXKQJJRKTE9622-38-60 21:02:00 Test Item Value Reference Range Interpretation Comments MCHC (test code = MCHC) 33.1 32.0-36.0 [facility] HospitalVhonmszQOYBLMWZQM6420-73-40 21:02:00 Test Item Value Reference Range Interpretation Comments Platelet (test code = Platelet) 190 133-450 [facility] HospitalQgwieyfHIOMQCJUMU5900-40-00 21:02:00 Test Item Value Reference Range Interpretation Comments MPV (test code = MPV) 8.1 7.4-10.4 [facility] HospitalZwbeopfMSBCSRBQFS8948-69-61 21:02:00 Test Item Value Reference Range Interpretation Comments Hct (test code = Hct) 34.6 36.0-48.0 [facility] HospitalHstvvoxHTDWOFNKPA7438-38-44 21:02:00 Test Item Value Reference Range Interpretation Comments Hgb (test code = Hgb) 11.5 12.0-16.0 [facility] HospitalVltqmhoTIVHBRPWGL7354-53-60 21:02:00 Test Item Value Reference Range Interpretation Comments MCH (test code = MCH) 28.8 pg 27.0-31.0 [facility] HospitalEakdtdmDUDEXMHURP1187-84-82 21:02:00 Test Item Value Reference Range Interpretation Comments MCV (test code = MCV) 86.9 80.0-98.0 [facility] HospitalRpstvnkUJGEFAHGGA8044-22-31 21:02:00 Test Item Value Reference Range Interpretation Comments RBC (test code = RBC) 3.98 4.20-5.40 [facility] HospitalSmxktagDTLLFOLBFB4477-57-27 21:02:00 Test Item Value Reference Range Interpretation Comments WBC (test code = WBC) 6.5 3.7-10.4 [facility] HospitalRqxqkcsHFOCDJWIDR2033-65-01 21:02:00 Test Item Value Reference Range Interpretation Comments PTT (test code = PTT) 32.8 s 22.9-35.8 [facility] HospitalCtmoqayMTUTCJJWAH5390-95-29 21:02:00 Test Item Value Reference Range Interpretation Comments PT (test code = PT) 13.3 s 12.0-14.7 [facility] HospitalBsotpriYYBBKHQPDB3525-34-35 21:02:00 Test Item Value Reference Range Interpretation Comments INR (test code = INR) 1.01 0.85-1.17 [facility] HospitalBbxdhmtTIZYZQIWMB9680-19-53 21:02:00 Test Item Value Reference Range Interpretation Comments Basophils # (test code 0.0 See_Comment [Aut omated message] The = Basophils #) system which generated this result tra nsmitted reference range : <=0.2. The reference r melody was not used to int erpret this result as normal/abnormal . [facility] HospitalGfswgghVSUEWELCUA7835-82-00 21:02:00 Test Item Value Reference Range Interpretation Comments Segs-Bands # (test code = Segs-Bands #) 3.7 1.5-8.1 [facility] HospitalBaednrrQZNCEUPWAW4200-15-13 21:02:00 Test Item Value Reference Range Interpretation Comments Eosinophils # (test code 0.2 See_Comment [A utomated message] The = Eosinophils #) system whic h generated this result tra nsmitted reference range : <=0.5. The reference r melody was not used to int erpret this result as normal/abnormal . [facility] HospitalIkjtibmYMXWVNFHXK2904-68-04 21:02:00 Test Item Value Reference Range Interpretation Comments Monocytes # (test code 0.6 See_Comment [Aut omated message] The = Monocytes #) system which generated this result tra nsmitted reference range : <=0.8. The reference r melody was not used to int erpret this result as normal/abnormal . [facility] HospitalInxoiehUOFQPDUYNE5963-84-83 21:02:00 Test Item Value Reference Range Interpretation Comments Lymphocytes # (test code = Lymphocytes 1.9 1.0-5.5 #) [facility] HospitalRekqszoXHLNDRISXF5347-57-50 21:02:00 Test Item Value Reference Range Interpretation Comments Segs (test code = Segs) 56.9 45.0-75.0 [facility] HospitalZhllsszSLLAGMOQOF4807-37-93 21:02:00 Test Item Value Reference Range Interpretation Comments Eosinophils (test code = 2.7 See_Comment [A utomated message] The Eosinophils) system which ge nerated this result tra nsmitted reference range : <=4.0. The reference r melody was not used to int erpret this result as normal/abnormal . [facility] HospitalMrreucgIEPNRXKICZ9432-56-34 21:02:00 Test Item Value Reference Range Interpretation Comments Basophils (test code = 0.4 See_Comment [Aut omated message] The Basophils) system which ge nerated this result tra nsmitted reference range : <=1.0. The reference r melody was not used to int erpret this result as normal/abnormal . [facility] HospitalQeywvbjBMAZMCGNRC7678-76-06 21:02:00 Test Item Value Reference Range Interpretation Comments Monocytes (test code = Monocytes) 9.9 2.0-12.0 [facility] HospitalTqeplkxMOJXJNFHTB5577-08-71 21:02:00 Test Item Value Reference Range Interpretation Comments Lymphocytes (test code = Lymphocytes) 30.1 20.0-40.0 [facility] CenterAk[facility] TherapeuticsCL[facility] [id number] 09:33:00 Test Item Value Reference Range Interpretation Comments Troponin-I (test code no gt See_Comment [Auto mated message] The = Troponin-I) system which g enerated this result transmit marcelle reference range : <=0.40. The reference r melody was not used to interpr et this result as aranza l/abnormal. [facility] CenteriCarsClubZHYRORE1149-97-72 06:16:00 Test Item Value Reference Range Interpretation Comments Troponin-I (test code no gt See_Comment [Auto mated message] The = Troponin-I) system which g enerated this result transmit marcelle reference range : <=0.40. The reference r melody was not used to interpr et this result as aranza l/abnormal. [facility] [employer] [id number] 06:16:00 Test Item Value Reference Range Interpretation Comments A/G Ratio (test code = A/G Ratio) 1.1 0.7-1.6 [place] 661905-07-08 06:16:00 Test Item Value Reference Range Interpretation Comments Globulin (test code = Globulin) 3.5 2.0-4.0 [place] 661905-07-08 06:16:00 Test Item Value Reference Range Interpretation Comments Bili Indirect (test 0.5 See_Comment [Automa marcelle message] The code = Bili Indirect) system which generated this result tra nsmitted reference range : <=1.0. The reference r melody was not used to int erpret this result as normal/abnormal . [place] 661905-07-08 06:16:00 Test Item Value Reference Range Interpretation Comments Bili Direct (test code 0.1 See_Comment [Aut omated message] The = Bili Direct) system which generated this result tra nsmitted reference range : <=0.3. The reference r melody was not used to int erpret this result as aranza l/abnormal. [facility]2015-07-08 06:16:00 Test Item Value Reference Range Interpretation Comments ALT (test code = ALT) 25 See_Comment [Auto mated message] The system which ge nerated this result transmit marcelle reference range : <=65. The reference range was not used to interpr et this result as aranza l/abnormal. [facility]2015-07-08 06:16:00 Test Item Value Reference Range Interpretation Comments AST (test code = AST) 21 See_Comment [Auto mated message] The system which ge nerated this result transmit marcelle reference range : <=37. The reference range was not used to interpr et this result as aranza l/abnormal. [place] 661905-07-08 06:16:00 Test Item Value Reference Range Interpretation Comments Albumin Lvl (test code = Albumin Lvl) 3.7 3.5-5.0 [place] 661905-07-08 06:16:00 Test Item Value Reference Range Interpretation Comments Alk Phos (test code = Alk Phos) 119 39-136 [place] 661905-07-08 06:16:00 Test Item Value Reference Range Interpretation Comments Bili Total (test code = Bili Total) 0.6 0.2-1.3 [facility]2015-07-08 06:16:00 Test Item Value Reference Range Interpretation Comments Total Protein (test code = Total 7.2 6.4-8.4 Protein) [facility]2015-07-08 06:16:00 Test Item Value Reference Range Interpretation Comments Lipase Lvl (test code = Lipase Lvl) 221 73-393 [facility]WnzejrgYBXFADTXQKNS6922-15-73 06:16:00 Test Item Value Reference Range Interpretation Comments AGAP (test code = AGAP) 12.6 10.0-20.0 [facility] HospitalGcdbcheAGGKPBMKKRSF1898-33-38 06:16:00 Test Item Value Reference Range Interpretation Comments eGFR (test code = eGFR) 78 [facility] HospitalEtawhthDPQZCHEUGQKA3309-13-31 06:16:00 Test Item Value Reference Range Interpretation Comments Calcium Lvl (test code = Calcium Lvl) 9.6 8.5-10.5 [facility] HospitalJxcgltvSPPIDLFYLKXE4541-26-17 06:16:00 Test Item Value Reference Range Interpretation Comments CO2 (test code = CO2) 29 24-32 [facility] HospitalMyvlrjvQLBSXDXMHOVO8081-25-71 06:16:00 Test Item Value Reference Range Interpretation Comments Potassium Lvl (test code = Potassium 3.6 3.5-5.1 Lvl) [facility] HospitalKgbfczdKHULMUNPFSZD5047-88-33 06:16:00 Test Item Value Reference Range Interpretation Comments Chloride Lvl (test code = Chloride Lvl) 103 95-109 [facility] HospitalLpioymlMWBNJYBOWUTA3935-34-09 06:16:00 Test Item Value Reference Range Interpretation Comments Sodium Lvl (test code = Sodium Lvl) 141 135-145 [facility] HospitalHsfkepbADXHESSJOCFN9434-56-97 06:16:00 Test Item Value Reference Range Interpretation Comments Creatinine Lvl (test code = Creatinine 0.8 0.5-1.4 Lvl) [facility] HospitalHigqtijFRUGTLCAOARO0119-33-16 06:16:00 Test Item Value Reference Range Interpretation Comments BUN (test code = BUN) 9 7-22 [facility] HospitalQrenlwkWBZCWLLIZDDE9604-34-90 06:16:00 Test Item Value Reference Range Interpretation Comments Glucose Lvl (test code = Glucose Lvl) 96 70-99 [facility] HospitalPisqvetNXPPWZIBOT5125-46-92 06:16:00 Test Item Value Reference Range Interpretation Comments Lymphocytes # (test code = Lymphocytes 2.6 1.0-5.5 #) [facility] HospitalBdaerduUVAZVASEQW3181-43-73 06:16:00 Test Item Value Reference Range Interpretation Comments Monocytes # (test code 0.9 See_Comment [Aut omated message] The = Monocytes #) system which generated this result tra nsmitted reference range : <=0.8. The reference r melody was not used to int erpret this result as normal/abnormal . [facility] HospitalKagugpdMQTEXPKIAH4046-27-11 06:16:00 Test Item Value Reference Range Interpretation Comments Basophils (test code = 0.7 See_Comment [Aut omated message] The Basophils) system which ge nerated this result tra nsmitted reference range : <=1.0. The reference r melody was not used to int erpret this result as normal/abnormal . [facility] HospitalDyhdcqwMBRDTUAUNJ8250-42-38 06:16:00 Test Item Value Reference Range Interpretation Comments Eosinophils (test code = 1.7 See_Comment [A utomated message] The Eosinophils) system which ge nerated this result tra nsmitted reference range : <=4.0. The reference r melody was not used to int erpret this result as normal/abnormal . [facility] HospitalNhavvbdIDHDWCVLUY1113-94-44 06:16:00 Test Item Value Reference Range Interpretation Comments Segs-Bands # (test code = Segs-Bands #) 6.7 1.5-8.1 [facility] HospitalNkcttctNCVUYIILEL6554-75-22 06:16:00 Test Item Value Reference Range Interpretation Comments Lymphocytes (test code = Lymphocytes) 25.0 20.0-40.0 [facility] HospitalSpfhwflMUVBHWGAWE4100-14-54 06:16:00 Test Item Value Reference Range Interpretation Comments Segs (test code = Segs) 64.3 45.0-75.0 [facility] HospitalHxtjjtaIDRZDMVEYK3988-25-55 06:16:00 Test Item Value Reference Range Interpretation Comments Monocytes (test code = Monocytes) 8.3 2.0-12.0 [facility] HospitalCfefrsvCCXDBFNWSH0040-04-95 06:16:00 Test Item Value Reference Range Interpretation Comments Eosinophils # (test code 0.2 See_Comment [A utomated message] The = Eosinophils #) system whic h generated this result tra nsmitted reference range : <=0.5. The reference r melody was not used to int erpret this result as normal/abnormal . [facility] HospitalZrvhpirZJQUEULVSA6716-45-96 06:16:00 Test Item Value Reference Range Interpretation Comments Basophils # (test code 0.1 See_Comment [Aut omated message] The = Basophils #) system which generated this result tra nsmitted reference range : <=0.2. The reference r melody was not used to int erpret this result as normal/abnormal . [facility] HospitalBiwhuwjMHIYPZDZSC5165-76-71 06:16:00 Test Item Value Reference Range Interpretation Comments MCV (test code = MCV) 87.7 80.0-98.0 [facility] HospitalQosorsgXYPKGWHXZV1157-39-01 06:16:00 Test Item Value Reference Range Interpretation Comments Hct (test code = Hct) 39.7 36.0-48.0 [facility] HospitalRpivthsPVTXBKRQDH0228-89-26 06:16:00 Test Item Value Reference Range Interpretation Comments MPV (test code = MPV) 8.0 7.4-10.4 [facility] HospitalKheelknUCECFPCSYA4758-11-99 06:16:00 Test Item Value Reference Range Interpretation Comments Platelet (test code = Platelet) 216 133-450 [facility] HospitalFvmenjvHOZIODQVUY0437-39-01 06:16:00 Test Item Value Reference Range Interpretation Comments RDW (test code = RDW) 14.6 11.5-14.5 [facility] HospitalLtvqmviFDYKDHRPAK5047-94-96 06:16:00 Test Item Value Reference Range Interpretation Comments MCHC (test code = MCHC) 32.4 32.0-36.0 [facility] HospitalWuaafkiVOJNKMGAJB6752-42-66 06:16:00 Test Item Value Reference Range Interpretation Comments MCH (test code = MCH) 28.4 pg 27.0-31.0 [facility] HospitalQhkdvbbQIXKEHPJPB1382-26-98 06:16:00 Test Item Value Reference Range Interpretation Comments WBC (test code = WBC) 10.5 3.7-10.4 [facility] HospitalPdkxfjcGHKGDGAVRE9358-33-92 06:16:00 Test Item Value Reference Range Interpretation Comments RBC (test code = RBC) 4.53 4.20-5.40 [facility] HospitalCicyqswNLVLNDIXYR8960-08-50 06:16:00 Test Item Value Reference Range Interpretation Comments Hgb (test code = Hgb) 12.9 12.0-16.0 [facility]2015-06-30 09:16:00 Test Item Value Reference Range Interpretation Comments Magnesium Lvl (test code = Magnesium 2.0 1.8-2.4 Lvl) [facility]2015-06-30 09:16:00 Test Item Value Reference Range Interpretation Comments Phosphorus (test code = Phosphorus) 3.6 2.5-4.5 [facility]2015-06-30 09:16:00 Test Item Value Reference Range Interpretation Comments eGFR (test code = eGFR) 106 [facility]2015-06-30 09:16:00 Test Item Value Reference Range Interpretation Comments AST (test code = AST) 17 See_Comment [Auto mated message] The system which ge nerated this result transmit marcelle reference range : <=37. The reference range was not used to interpr et this result as aranza l/abnormal. [facility]2015-06-30 09:16:00 Test Item Value Reference Range Interpretation Comments Albumin Lvl (test code = Albumin Lvl) 3.3 3.5-5.0 [facility]2015-06-30 09:16:00 Test Item Value Reference Range Interpretation Comments A/G Ratio (test code = A/G Ratio) 1.1 0.7-1.6 [facility]2015-06-30 09:16:00 Test Item Value Reference Range Interpretation Comments Total Protein (test code = Total 6.3 6.4-8.4 Protein) [facility]2015-06-30 09:16:00 Test Item Value Reference Range Interpretation Comments ALT (test code = ALT) 21 See_Comment [Auto mated message] The system which ge nerated this result transmit marcelle reference range : <=65. The reference range was not used to interpr et this result as aranza l/abnormal. [facility]2015-06-30 09:16:00 Test Item Value Reference Range Interpretation Comments Globulin (test code = Globulin) 3.0 2.0-4.0 [facility]2015-06-30 09:16:00 Test Item Value Reference Range Interpretation Comments Bili Total (test code = Bili Total) 0.5 0.2-1.3 [facility]2015-06-30 09:16:00 Test Item Value Reference Range Interpretation Comments Alk Phos (test code = Alk Phos) 119 39-136 [facility]2015-06-30 09:16:00 Test Item Value Reference Range Interpretation Comments B/C Ratio (test code = B/C Ratio) 11 6-25 [facility]2015-06-30 09:16:00 Test Item Value Reference Range Interpretation Comments Calcium Lvl (test code = Calcium Lvl) 9.1 8.5-10.5 [facility]2015-06-30 09:16:00 Test Item Value Reference Range Interpretation Comments Glucose Lvl (test code = Glucose Lvl) 99 70-99 [facility]2015-06-30 09:16:00 Test Item Value Reference Range Interpretation Comments BUN (test code = BUN) 8 7-22 [facility]2015-06-30 09:16:00 Test Item Value Reference Range Interpretation Comments Sodium Lvl (test code = Sodium Lvl) 140 135-145 [facility]2015-06-30 09:16:00 Test Item Value Reference Range Interpretation Comments Creatinine Lvl (test code = Creatinine 0.7 0.5-1.4 Lvl) [facility]2015-06-30 09:16:00 Test Item Value Reference Range Interpretation Comments AGAP (test code = AGAP) 8.9 10.0-20.0 [facility]2015-06-30 09:16:00 Test Item Value Reference Range Interpretation Comments Chloride Lvl (test code = Chloride Lvl) 107 95-109 [facility]2015-06-30 09:16:00 Test Item Value Reference Range Interpretation Comments CO2 (test code = CO2) 28 24-32 [facility]2015-06-30 09:16:00 Test Item Value Reference Range Interpretation Comments Potassium Lvl (test code = Potassium 3.9 3.5-5.1 Lvl) [id number] 09:16:00 Test Item Value Reference Range Interpretation Comments Platelet (test code = Platelet) 216 133-450 [facility] HospitalPogcmciVRKSIRAZZS5274-25-45 09:16:00 Test Item Value Reference Range Interpretation Comments MPV (test code = MPV) 8.8 7.4-10.4 [facility] HospitalWlwzrhdMOXCKFQOIK4856-32-05 09:16:00 Test Item Value Reference Range Interpretation Comments RDW (test code = RDW) 14.9 11.5-14.5 [facility] HospitalAkcizybKYVMUMYVTQ5847-32-84 09:16:00 Test Item Value Reference Range Interpretation Comments WBC (test code = WBC) 5.9 3.7-10.4 [facility] HospitalLlwtvqlOEAKRUMCTH3839-78-70 09:16:00 Test Item Value Reference Range Interpretation Comments MCV (test code = MCV) 88.4 80.0-98.0 [facility] HospitalOxdezzvDKBGJNVYCG6611-20-28 09:16:00 Test Item Value Reference Range Interpretation Comments Hct (test code = Hct) 37.2 36.0-48.0 [facility] HospitalZhvycisTQLLZNCYYS9649-60-69 09:16:00 Test Item Value Reference Range Interpretation Comments MCH (test code = MCH) 28.6 pg 27.0-31.0 [facility] HospitalUgpzgkwGFUNXMVJVL3686-69-54 09:16:00 Test Item Value Reference Range Interpretation Comments MCHC (test code = MCHC) 32.4 32.0-36.0 [facility] HospitalPcoesaqMWKTNWHLOW9571-82-59 09:16:00 Test Item Value Reference Range Interpretation Comments RBC (test code = RBC) 4.21 4.20-5.40 [facility] HospitalPxglxzwCEBTLYHAMP9019-50-33 09:16:00 Test Item Value Reference Range Interpretation Comments Hgb (test code = Hgb) 12.0 12.0-16.0 [facility] HospitalLvuqqubXHODPLTHON0225-44-96 09:16:00 Test Item Value Reference Range Interpretation Comments Lymphocytes (test code = Lymphocytes) 31.9 20.0-40.0 [facility] HospitalWqpqrkwBLCILRORHQ3824-49-41 09:16:00 Test Item Value Reference Range Interpretation Comments Basophils (test code = 0.8 See_Comment [Aut omated message] The Basophils) system which ge nerated this result tra nsmitted reference range : <=1.0. The reference r melody was not used to int erpret this result as normal/abnormal . [facility] HospitalUqqqotrFFUVLVALKP8769-56-08 09:16:00 Test Item Value Reference Range Interpretation Comments Segs-Bands # (test code = Segs-Bands #) 3.1 1.5-8.1 [facility] HospitalExpwzatPLSJELCWMW1141-80-09 09:16:00 Test Item Value Reference Range Interpretation Comments Monocytes (test code = Monocytes) 11.6 2.0-12.0 [facility] HospitalYtqjjvjRIEXSIHPGL9663-26-47 09:16:00 Test Item Value Reference Range Interpretation Comments Eosinophils (test code = 2.9 See_Comment [A utomated message] The Eosinophils) system which ge nerated this result tra nsmitted reference range : <=4.0. The reference r melody was not used to int erpret this result as normal/abnormal . [facility] HospitalManrmfaIIHXUFPRPO2307-81-84 09:16:00 Test Item Value Reference Range Interpretation Comments Segs (test code = Segs) 52.8 45.0-75.0 [facility] HospitalDvjcdnpLIIHVBYDWE9139-49-67 09:16:00 Test Item Value Reference Range Interpretation Comments Monocytes # (test code 0.7 See_Comment [Aut omated message] The = Monocytes #) system which generated this result tra nsmitted reference range : <=0.8. The reference r melody was not used to int erpret this result as normal/abnormal . [facility] HospitalRwpgnuhHLFCNVLYHD9399-27-91 09:16:00 Test Item Value Reference Range Interpretation Comments Lymphocytes # (test code = Lymphocytes 1.9 1.0-5.5 #) [facility] HospitalUohsvpcOSUYWVVQGF9760-44-28 09:16:00 Test Item Value Reference Range Interpretation Comments Eosinophils # (test code 0.2 See_Comment [A utomated message] The = Eosinophils #) system whic h generated this result tra nsmitted reference range : <=0.5. The reference r melody was not used to int erpret this result as normal/abnormal . [facility] [id number] 04:30:00 Test Item Value Reference Range Interpretation Comments Total CK (test code = Total CK) 74 12-191 [facility] [id number] 04:30:00 Test Item Value Reference Range Interpretation Comments CK MB Index (test 1.2 See_Comment [Automate d message] The code = CK MB Index) system w [facility] generated this result transmit marcelle reference range : <=2.5. The reference range was not used to interpr et this result as aranza l/abnormal. [facility]2015-06-30 04:30:00 Test Item Value Reference Range Interpretation Comments Troponin-I (test code no gt See_Comment [Auto mated message] The = Troponin-I) system which g enerated this result transmit marcelle reference range : <=0.40. The reference r melody was not used to interpr et this result as aranza l/abnormal. [facility]2015-06-30 04:30:00 Test Item Value Reference Range Interpretation Comments CK MB (test code = CK MB) 0.9 0.5-3.6 [facility] [employer] [id number] 23:29:00 Test Item Value Reference Range Interpretation Comments Troponin-I (test code no gt See_Comment [Auto mated message] The = Troponin-I) system which g enerated this result transmit marcelle reference range : <=0.40. The reference r melody was not used to interpr et this result as aranza l/abnormal. [facility]2015-06-29 23:29:00 Test Item Value Reference Range Interpretation Comments CK MB (test code = CK MB) 0.7 0.5-3.6 [facility]2015-06-29 23:29:00 Test Item Value Reference Range Interpretation Comments Total CK (test code = Total CK) 68 12-191 [facility]2015-06-29 23:29:00 Test Item Value Reference Range Interpretation Comments CK MB Index (test 1.0 See_Comment [Automate d message] The code = CK MB Index) system w [employer] generated this result transmit marcelle reference range : <=2.5. The reference range was not used to interpr et this result as aranza l/abnormal. [facility]2015-06-29 17:33:00 Test Item Value Reference Range Interpretation Comments CK MB Index (test 0.9 See_Comment [Automate d message] The code = CK MB Index) system w [employer] generated this result transmit marcelle reference range : <=2.5. The reference range was not used to interpr et this result as aranza l/abnormal. [facility]2015-06-29 17:33:00 Test Item Value Reference Range Interpretation Comments Troponin-I (test code no gt See_Comment [Auto mated message] The = Troponin-I) system which g enerated this result transmit marcelle reference range : <=0.40. The reference r melody was not used to interpr et this result as aranza l/abnormal. [facility] [employer] [id number] 17:33:00 Test Item Value Reference Range Interpretation Comments CK MB (test code = CK MB) 0.7 0.5-3.6 [facility] [id number] 17:33:00 Test Item Value Reference Range Interpretation Comments Total CK (test code = Total CK) 76 12-191 [facility] [employer] [id number] 17:33:00 Test Item Value Reference Range Interpretation Comments eGFR (test code = eGFR) 90 [facility] [id number] 17:33:00 Test Item Value Reference Range Interpretation Comments Globulin (test code = Globulin) 3.1 2.0-4.0 [facility] [employer] [id number] 17:33:00 Test Item Value Reference Range Interpretation Comments Alk Phos (test code = Alk Phos) 128 39-136 [facility] [employer] [id number] 17:33:00 Test Item Value Reference Range Interpretation Comments Bili Total (test code = Bili Total) 0.3 0.2-1.3 [facility] [employer] [id number] 17:33:00 Test Item Value Reference Range Interpretation Comments A/G Ratio (test code = A/G Ratio) 1.1 0.7-1.6 [facility] [employer] [id number] 17:33:00 Test Item Value Reference Range Interpretation Comments AGAP (test code = AGAP) 7.3 10.0-20.0 [facility] [employer] [id number] 17:33:00 Test Item Value Reference Range Interpretation Comments B/C Ratio (test code = B/C Ratio) 12 6-25 [facility] [employer] [id number] 17:33:00 Test Item Value Reference Range Interpretation Comments Creatinine Lvl (test code = Creatinine 0.8 0.5-1.4 Lvl) [facility] [id number] 17:33:00 Test Item Value Reference Range Interpretation Comments Sodium Lvl (test code = Sodium Lvl) 140 135-145 [facility]2015-06-29 17:33:00 Test Item Value Reference Range Interpretation Comments Glucose Lvl (test code = Glucose Lvl) 88 70-99 [facility]2015-06-29 17:33:00 Test Item Value Reference Range Interpretation Comments Potassium Lvl (test code = Potassium 3.3 3.5-5.1 Lvl) [facility]2015-06-29 17:33:00 Test Item Value Reference Range Interpretation Comments Chloride Lvl (test code = Chloride Lvl) 106 95-109 [facility]2015-06-29 17:33:00 Test Item Value Reference Range Interpretation Comments BUN (test code = BUN) 10 7-22 [facility]2015-06-29 17:33:00 Test Item Value Reference Range Interpretation Comments AST (test code = AST) 15 See_Comment [Auto mated message] The system which ge nerated this result transmit marcelle reference range : <=37. The reference range was not used to interpr et this result as aranza l/abnormal. [facility]2015-06-29 17:33:00 Test Item Value Reference Range Interpretation Comments ALT (test code = ALT) 22 See_Comment [Auto mated message] The system which ge nerated this result transmit marcelle reference range : <=65. The reference range was not used to interpr et this result as aranza l/abnormal. [facility]2015-06-29 17:33:00 Test Item Value Reference Range Interpretation Comments Calcium Lvl (test code = Calcium Lvl) 8.9 8.5-10.5 [facility]2015-06-29 17:33:00 Test Item Value Reference Range Interpretation Comments CO2 (test code = CO2) 30 24-32 [facility]2015-06-29 17:33:00 Test Item Value Reference Range Interpretation Comments Total Protein (test code = Total 6.6 6.4-8.4 Protein) [facility]2015-06-29 17:33:00 Test Item Value Reference Range Interpretation Comments Albumin Lvl (test code = Albumin Lvl) 3.5 3.5-5.0 [facility] Ho[id number] 17:33:00 Test Item Value Reference Range Interpretation Comments Segs (test code = Segs) 55.9 45.0-75.0 [facility] Hospit[id number] 17:33:00 Test Item Value Reference Range Interpretation Comments Lymphocytes (test code = Lymphocytes) 28.7 20.0-40.0 [facility] HospitalRxliybuQZFVUNKUOF0536-43-58 17:33:00 Test Item Value Reference Range Interpretation Comments Segs-Bands # (test code = Segs-Bands #) 3.7 1.5-8.1 [facility] Hos[id number] 17:33:00 Test Item Value Reference Range Interpretation Comments Basophils (test code = 0.7 See_Comment [Aut omated message] The Basophils) system which ge nerated this result tra nsmitted reference range : <=1.0. The reference r melody was not used to int erpret this result as normal/abnormal . [facility] Hospit[id number] 17:33:00 Test Item Value Reference Range Interpretation Comments Lymphocytes # (test code = Lymphocytes 1.9 1.0-5.5 #) [facility] H[id number] 17:33:00 Test Item Value Reference Range Interpretation Comments Eosinophils (test code = 2.2 See_Comment [A utomated message] The Eosinophils) system which ge nerated this result tra nsmitted reference range : <=4.0. The reference r melody was not used to int erpret this result as normal/abnormal . [facility] HospitalAbyzrjfLCDIHJRHVV5145-30-28 17:33:00 Test Item Value Reference Range Interpretation Comments Monocytes (test code = Monocytes) 12.5 2.0-12.0 [facility] Hospit[id number] 17:33:00 Test Item Value Reference Range Interpretation Comments Basophils # (test code 0.0 See_Comment [Aut omated message] The = Basophils #) system which generated this result tra nsmitted reference range : <=0.2. The reference r melody was not used to int erpret this result as normal/abnormal . [facility] HospitalRehbryxSBYXXFIHKS5498-41-89 17:33:00 Test Item Value Reference Range Interpretation Comments Eosinophils # (test code 0.1 See_Comment [A utomated message] The = Eosinophils #) system whic h generated this result tra nsmitted reference range : <=0.5. The reference r melody was not used to int erpret this result as normal/abnormal . [facility] HospitalNhtrlrgDCEGYHZEVS9944-56-15 17:33:00 Test Item Value Reference Range Interpretation Comments Monocytes # (test code 0.8 See_Comment [Aut omated message] The = Monocytes #) system which generated this result tra nsmitted reference range : <=0.8. The reference r melody was not used to int erpret this result as normal/abnormal . [facility] HospitalIzjhdklJRDEYOZWTO2876-25-03 17:33:00 Test Item Value Reference Range Interpretation Comments MPV (test code = MPV) 8.8 7.4-10.4 [facility] HospitalJmvaqzbYSBNNIEVDH7849-74-05 17:33:00 Test Item Value Reference Range Interpretation Comments MCH (test code = MCH) 28.1 pg 27.0-31.0 [facility] HospitalYnqfmjpFDNQFWYDHE1575-71-79 17:33:00 Test Item Value Reference Range Interpretation Comments RDW (test code = RDW) 14.8 11.5-14.5 [facility] HospitalNrjweglJGFLAEGYGW9248-66-64 17:33:00 Test Item Value Reference Range Interpretation Comments MCHC (test code = MCHC) 32.2 32.0-36.0 [facility] HospitalGtgrngxBVYGCIMPZT0193-06-06 17:33:00 Test Item Value Reference Range Interpretation Comments Platelet (test code = Platelet) 207 133-450 [facility] HospitalAuknaxfJXCRWIGPBF8826-49-96 17:33:00 Test Item Value Reference Range Interpretation Comments Hgb (test code = Hgb) 11.4 12.0-16.0 [facility] HospitalV[id number] 17:33:00 Test Item Value Reference Range Interpretation Comments RBC (test code = RBC) 4.04 4.20-5.40 [facility] HospitalUrobicwGLQUDMQJYT7750-48-89 17:33:00 Test Item Value Reference Range Interpretation Comments WBC (test code = WBC) 6.5 3.7-10.4 [facility] HospitalLkggwzyYUOJLTDKAW9164-70-03 17:33:00 Test Item Value Reference Range Interpretation Comments Hct (test code = Hct) 35.3 36.0-48.0 [facility] Hos[id number] 17:33:00 Test Item Value Reference Range Interpretation Comments MCV (test code = MCV) 87.2 80.0-98.0 [facility]2015-06-22 09:54:00 Test Item Value Reference Range Interpretation Comments BNP (test code = BNP) 6 [facility] 09:54:00 Test Item Value Reference Range Interpretation Comments Troponin-I (test code no gt See_Comment [Auto mated message] The = Troponin-I) system which g enerated this result transmit marcelle reference range : <=0.40. The reference r melody was not used to interpr et this result as aranza l/abnormal. [facility] [employer] [id number] 09:54:00 Test Item Value Reference Range Interpretation Comments CK MB (test code = CK MB) 1.0 0.5-3.6 [facility] 09:54:00 Test Item Value Reference Range Interpretation Comments Total CK (test code = Total CK) 77 12-191 [facility] [employer] [id number] 09:54:00 Test Item Value Reference Range Interpretation Comments Magnesium Lvl (test code = Magnesium 1.8 1.8-2.4 Lvl) [facility] [employer] [id number] 09:54:00 Test Item Value Reference Range Interpretation Comments eGFR (test code = eGFR) 111 [facility] [employer] [id number] 09:54:00 Test Item Value Reference Range Interpretation Comments Chloride Lvl (test code = Chloride Lvl) 111 95-109 [facility] [employer] [id number] 09:54:00 Test Item Value Reference Range Interpretation Comments Potassium Lvl (test code = Potassium 3.8 3.5-5.1 Lvl) [facility] [employer] [id number] 09:54:00 Test Item Value Reference Range Interpretation Comments Sodium Lvl (test code = Sodium Lvl) 144 135-145 [facility] [employer] [id number] 09:54:00 Test Item Value Reference Range Interpretation Comments Calcium Lvl (test code = Calcium Lvl) 8.6 8.5-10.5 [facility] [employer]2015-06-22 09:54:00 Test Item Value Reference Range Interpretation Comments AGAP (test code = AGAP) 11.8 10.0-20.0 [facility] [employer]2015-06-22 09:54:00 Test Item Value Reference Range Interpretation Comments CO2 (test code = CO2) 25 24-32 [facility] [id number] 09:54:00 Test Item Value Reference Range Interpretation Comments Creatinine Lvl (test code = Creatinine 0.6 0.5-1.4 Lvl) [facility] [id number] 09:54:00 Test Item Value Reference Range Interpretation Comments BUN (test code = BUN) 6 7-22 [facility] [id number] 09:54:00 Test Item Value Reference Range Interpretation Comments Glucose Lvl (test code = Glucose Lvl) 72 70-99 [facility]EvahbrfPGJCRBAUEK8674-85-68 09:54:00 Test Item Value Reference Range Interpretation Comments Hgb (test code = Hgb) 11.5 12.0-16.0 [facility] CenterQeqxwdwXOKSFD3097-72-73 09:54:00 Test Item Value Reference Range Interpretation Comments HDL (test code = HDL) 51 [facility] CenterLkopfzwXRFXOS7292-40-44 09:54:00 Test Item Value Reference Range Interpretation Comments VLDL (test code = VLDL) 17 [facility] CenterTbxslomWFWUZJ6328-44-45 09:54:00 Test Item Value Reference Range Interpretation Comments LDL (Calculated) (test code = LDL 96 (Calculated)) [facility] CenterUjinuhtUYUIID7803-09-97 09:54:00 Test Item Value Reference Range Interpretation Comments Chol (test code = Chol) 164 [facility] CenterLmbfkfcHOJQAH3320-35-06 09:54:00 Test Item Value Reference Range Interpretation Comments Trig (test code = Trig) 84 [facility] CenterSvekjlvEFRNFN7509-89-66 09:54:00 Test Item Value Reference Range Interpretation Comments CHD Risk (test code = CHD Risk) 3.22 3.90-5.80 [facility] [id number] 09:54:00 Test Item Value Reference Range Interpretation Comments Hgb A1C (test code = Hgb A1C) 5.8 [facility] CenterC[facility] [id number] 04:20:00 Test Item Value Reference Range Interpretation Comments Troponin-I (test code no gt See_Comment [Auto mated message] The = Troponin-I) system which g enerated this result transmit marcelle reference range : <=0.40. The reference r melody was not used to interpr et this result as aranza l/abnormal. [facility] [id number] 04:20:00 Test Item Value Reference Range Interpretation Comments Total CK (test code = Total CK) 92 12-191 [facility] [employer] [id number] 04:20:00 Test Item Value Reference Range Interpretation Comments CK MB (test code = CK MB) 1.2 0.5-3.6 [facility] [employer] [id number] 22:59:00 Test Item Value Reference Range Interpretation Comments CK MB (test code = CK MB) 1.2 0.5-3.6 [facility] [employer] [id number] 22:59:00 Test Item Value Reference Range Interpretation Comments CK MB Index (test 1.3 See_Comment [Automate d message] The code = CK MB Index) system w [facility] generated this result transmit marcelle reference range : <=2.5. The reference range was not used to interpr et this result as aranza l/abnormal. [facility]2015-06-21 22:59:00 Test Item Value Reference Range Interpretation Comments Total CK (test code = Total CK) 93 191 [facility] [employer] [id number] 22:59:00 Test Item Value Reference Range Interpretation Comments Troponin-I (test code no gt See_Comment [Auto mated message] The = Troponin-I) system which g enerated this result transmit marcelle reference range : <=0.40. The reference r melody was not used to interpr et this result as aranza l/abnormal. [facility]2015-06-21 22:59:00 Test Item Value Reference Range Interpretation Comments BNP (test code = BNP) 4 [facility] [employer] [id number] 22:59:00 Test Item Value Reference Range Interpretation Comments Lipase Lvl (test code = Lipase Lvl) 307 73-393 [facility] [employer] [id number] 22:59:00 Test Item Value Reference Range Interpretation Comments A/G Ratio (test code = A/G Ratio) 1.0 0.7-1.6 [facility] [employer] [id number] 22:59:00 Test Item Value Reference Range Interpretation Comments Globulin (test code = Globulin) 3.6 2.0-4.0 [facility] [employer] [id number] 22:59:00 Test Item Value Reference Range Interpretation Comments Bili Indirect (test 0.4 See_Comment [Automa marcelle message] The code = Bili Indirect) system which generated this result tra nsmitted reference range : <=1.0. The reference r melody was not used to int erpret this result as normal/abnormal . [place] [id number] 22:59:00 Test Item Value Reference Range Interpretation Comments Bili Direct (test code 0.1 See_Comment [Aut omated message] The = Bili Direct) system which generated this result tra nsmitted reference range : <=0.3. The reference r melody was not used to int erpret this result as aranza l/abnormal. [place] [id number] 22:59:00 Test Item Value Reference Range Interpretation Comments Bili Total (test code = Bili Total) 0.5 0.2-1.3 [place] [id number] 22:59:00 Test Item Value Reference Range Interpretation Comments Total Protein (test code = Total 7.3 6.4-8.4 Protein) [place] 661905-06-21 22:59:00 Test Item Value Reference Range Interpretation Comments Alk Phos (test code = Alk Phos) 150 39-136 [facility] CenterVOICE[facility] [id number] 22:59:00 Test Item Value Reference Range Interpretation Comments AST (test code = AST) 15 See_Comment [Auto mated message] The system which ge nerated this result transmit marcelle reference range : <=37. The reference range was not used to interpr et this result as aranza l/abnormal. [facility] [id number] 22:59:00 Test Item Value Reference Range Interpretation Comments ALT (test code = ALT) 21 See_Comment [Auto mated message] The system which ge nerated this result transmit marcelle reference range : <=65. The reference range was not used to interpr et this result as aranza l/abnormal. [facility] [id number] 22:59:00 Test Item Value Reference Range Interpretation Comments Albumin Lvl (test code = Albumin Lvl) 3.7 3.5-5.0 [facility] CenterVOICE[facility] [id number] 22:59:00 Test Item Value Reference Range Interpretation Comments Phosphorus (test code = Phosphorus) 3.1 2.5-4.5 [facility]2015-06-21 22:59:00 Test Item Value Reference Range Interpretation Comments Magnesium Lvl (test code = Magnesium 1.9 1.8-2.4 Lvl) [facility]2015-06-21 22:59:00 Test Item Value Reference Range Interpretation Comments eGFR (test code = eGFR) 90 [facility]2015-06-21 22:59:00 Test Item Value Reference Range Interpretation Comments Calcium Lvl (test code = Calcium Lvl) 9.0 8.5-10.5 [facility]2015-06-21 22:59:00 Test Item Value Reference Range Interpretation Comments CO2 (test code = CO2) 28 24-32 [facility]2015-06-21 22:59:00 Test Item Value Reference Range Interpretation Comments Chloride Lvl (test code = Chloride Lvl) 107 95-109 [facility]2015-06-21 22:59:00 Test Item Value Reference Range Interpretation Comments Creatinine Lvl (test code = Creatinine 0.8 0.5-1.4 Lvl) [facility]2015-06-21 22:59:00 Test Item Value Reference Range Interpretation Comments BUN (test code = BUN) 11 7-22 [facility]2015-06-21 22:59:00 Test Item Value Reference Range Interpretation Comments Potassium Lvl (test code = Potassium 3.5 3.5-5.1 Lvl) [facility]2015-06-21 22:59:00 Test Item Value Reference Range Interpretation Comments Sodium Lvl (test code = Sodium Lvl) 139 135-145 [facility]2015-06-21 22:59:00 Test Item Value Reference Range Interpretation Comments Glucose Lvl (test code = Glucose Lvl) 76 70-99 [facility]2015-06-21 22:59:00 Test Item Value Reference Range Interpretation Comments AGAP (test code = AGAP) 7.5 10.0-20.0 [id number] 22:59:00 Test Item Value Reference Range Interpretation Comments Eosinophils (test code = 3.3 See_Comment [A utomated message] The Eosinophils) system which ge nerated this result tra nsmitted reference range : <=4.0. The reference r melody was not used to int erpret this result as normal/abnormal . [facility]FlpzpncPECBDCPTIG7875-79-72 22:59:00 Test Item Value Reference Range Interpretation Comments Monocytes (test code = Monocytes) 9.1 2.0-12.0 [facility] HospitalMmhlruzHRBTVBJEWW7543-14-43 22:59:00 Test Item Value Reference Range Interpretation Comments Lymphocytes (test code = Lymphocytes) 28.9 20.0-40.0 [facility] HospitalWeempvxHSGURTMGGE7457-65-42 22:59:00 Test Item Value Reference Range Interpretation Comments Segs (test code = Segs) 58.3 45.0-75.0 [facility] HospitalInkgbcpBKHMHQQCEK4969-31-33 22:59:00 Test Item Value Reference Range Interpretation Comments Segs-Bands # (test code = Segs-Bands #) 3.8 1.5-8.1 [facility] HospitalIfytqejGRREXLKUUR7724-30-53 22:59:00 Test Item Value Reference Range Interpretation Comments Basophils (test code = 0.4 See_Comment [Aut omated message] The Basophils) system which ge nerated this result tra nsmitted reference range : <=1.0. The reference r melody was not used to int erpret this result as normal/abnormal . [facility] HospitalYbjeutrPPXHPHUMZX9146-26-02 22:59:00 Test Item Value Reference Range Interpretation Comments Monocytes # (test code 0.6 See_Comment [Aut omated message] The = Monocytes #) system which generated this result tra nsmitted reference range : <=0.8. The reference r melody was not used to int erpret this result as normal/abnormal . [facility] HospitalYpqrofgYFASPZNIYM6102-93-82 22:59:00 Test Item Value Reference Range Interpretation Comments Lymphocytes # (test code = Lymphocytes 1.9 1.0-5.5 #) [facility] HospitalDbycrvyPLDGYMXUTV9185-27-76 22:59:00 Test Item Value Reference Range Interpretation Comments Eosinophils # (test code 0.2 See_Comment [A utomated message] The = Eosinophils #) system whic h generated this result tra nsmitted reference range : <=0.5. The reference r melody was not used to int erpret this result as normal/abnormal . [facility] HospitalKzxqrggQYYYXUWNWO0143-27-37 22:59:00 Test Item Value Reference Range Interpretation Comments Basophils # (test code 0.0 See_Comment [Aut omated message] The = Basophils #) system which generated this result tra nsmitted reference range : <=0.2. The reference r melody was not used to int erpret this result as normal/abnormal . [facility] HospitalXztdvmkNEFTBJCOTU0337-61-57 22:59:00 Test Item Value Reference Range Interpretation Comments PTT (test code = PTT) 36.0 s 22.9-35.8 [facility] HospitalOkaigfaQOLXVSUMLU4282-38-52 22:59:00 Test Item Value Reference Range Interpretation Comments PT (test code = PT) 12.9 s 12.0-14.7 [facility] HospitalUmbxkegUEDXSSAKXZ6784-27-61 22:59:00 Test Item Value Reference Range Interpretation Comments INR (test code = INR) 0.97 0.85-1.17 [facility] HospitalQilqkjhDEXAKCYOJA9733-26-56 22:59:00 Test Item Value Reference Range Interpretation Comments Platelet (test code = Platelet) 225 133-450 [facility] HospitalWsrojspMNNWIYEXAT8223-37-62 22:59:00 Test Item Value Reference Range Interpretation Comments RDW (test code = RDW) 14.7 11.5-14.5 [facility] HospitalBfjemkwBDKEYCXLFF4892-83-21 22:59:00 Test Item Value Reference Range Interpretation Comments MPV (test code = MPV) 8.7 7.4-10.4 [facility] HospitalJgzqgozGVWYQJZJJM5613-97-35 22:59:00 Test Item Value Reference Range Interpretation Comments MCHC (test code = MCHC) 32.6 32.0-36.0 [facility] HospitalXxglyldYBVKGKUXIE2220-71-98 22:59:00 Test Item Value Reference Range Interpretation Comments Hct (test code = Hct) 39.5 36.0-48.0 [facility] HospitalVlnevmbWRFKREVTEY0028-55-73 22:59:00 Test Item Value Reference Range Interpretation Comments MCV (test code = MCV) 87.3 80.0-98.0 [facility] HospitalFccxmizMNHTBKGRCN9944-90-02 22:59:00 Test Item Value Reference Range Interpretation Comments MCH (test code = MCH) 28.4 pg 27.0-31.0 [facility] HospitalVmeiskyATIBDZZIGP2115-79-30 22:59:00 Test Item Value Reference Range Interpretation Comments RBC (test code = RBC) 4.52 4.20-5.40 [facility]MlgvegzHZZYBDXKDB2720-36-45 22:59:00 Test Item Value Reference Range Interpretation Comments Hgb (test code = Hgb) 12.9 12.0-16.0 [facility] CenterKexfneyXHMJVUSFUN3331-77-61 22:59:00 Test Item Value Reference Range Interpretation Comments WBC (test code = WBC) 6.5 3.7-10.4 [facility] CenterEjzaighWHTJFDPHN7278-96-11 22:59:00 Test Item Value Reference Range Interpretation Comments Myoglobin (test code = Myoglobin) 46 25-72 [facility] CenterannCARDIAC [id number] 21:17:00 Test Item Value Reference Range Interpretation Comments BNP (test code = BNP) 15 [facility] CenterannCARDIAC HSRLBXB7846-67-93 21:17:00 Test Item Value Reference Range Interpretation Comments Troponin-I (test code no gt See_Comment [Auto mated message] The = Troponin-I) system which g enerated this result transmit marcelle reference range : <=0.40. The reference r melody was not used to interpr et this result as aranza l/abnormal. [facility] CenterNeurocrine BiosciencesCARDIAC [id number] 21:17:00 Test Item Value Reference Range Interpretation Comments Total CK (test code = Total CK) 80 12-191 [facility] CenterNeurocrine BiosciencesCARStreetlifeAC [id number] 21:17:00 Test Item Value Reference Range Interpretation Comments CK MB (test code = CK MB) no gt 0.5-3.6 [facility] CenterannBluelockAC [id number] 21:17:00 Test Item Value Reference Range Interpretation Comments CK MB Index (test no gt See_Comment [Automate d message] The code = CK MB Index) system w [facility] generated this result transmit marcelle reference range : <=2.5. The reference range was not used to interpr et this result as aranza l/abnormal. [facility] [employer] PreyannCHEM [id number] 21:17:00 Test Item Value Reference Range Interpretation Comments eGFR (test code = eGFR) 112 [facility] CenterNeurocrine BiosciencesCHEM [id number] 21:17:00 Test Item Value Reference Range Interpretation Comments Globulin (test code = Globulin) 3.6 2.0-4.0 [facility] CenterNeurocrine BiosciencesCHEM [id number] 21:17:00 Test Item Value Reference Range Interpretation Comments B/C Ratio (test code = B/C Ratio) 17 6-25 [facility]2014-04-26 21:17:00 Test Item Value Reference Range Interpretation Comments A/G Ratio (test code = A/G Ratio) 1.1 0.7-1.6 [facility]2014-04-26 21:17:00 Test Item Value Reference Range Interpretation Comments Glucose Lvl (test code = Glucose Lvl) 101 70-99 [facility]2014-04-26 21:17:00 Test Item Value Reference Range Interpretation Comments ALT (test code = ALT) 34 See_Comment [Auto mated message] The system which ge nerated this result transmit marcelle reference range : <=65. The reference range was not used to interpr et this result as aranza l/abnormal. [facility]2014-04-26 21:17:00 Test Item Value Reference Range Interpretation Comments Albumin Lvl (test code = Albumin Lvl) 3.9 3.5-5.0 [facility]2014-04-26 21:17:00 Test Item Value Reference Range Interpretation Comments Alk Phos (test code = Alk Phos) 89 39-136 [facility]2014-04-26 21:17:00 Test Item Value Reference Range Interpretation Comments AST (test code = AST) 22 See_Comment [Auto mated message] The system which ge nerated this result transmit marcelle reference range : <=37. The reference range was not used to interpr et this result as aranza l/abnormal. [facility]2014-04-26 21:17:00 Test Item Value Reference Range Interpretation Comments Bili Total (test code = Bili Total) 0.6 0.2-1.3 [facility]2014-04-26 21:17:00 Test Item Value Reference Range Interpretation Comments AGAP (test code = AGAP) 5.5 10.0-20.0 [facility]2014-04-26 21:17:00 Test Item Value Reference Range Interpretation Comments Creatinine Lvl (test code = Creatinine 0.6 0.5-1.4 Lvl) [facility]2014-04-26 21:17:00 Test Item Value Reference Range Interpretation Comments BUN (test code = BUN) 10 7-22 [facility]ann[facility] [place] [id number] 21:17:00 Test Item Value Reference Range Interpretation Comments Potassium Lvl (test code = Potassium 3.5 3.5-5.1 Lvl) [facility] CenterannCHEM [id number] 21:17:00 Test Item Value Reference Range Interpretation Comments Sodium Lvl (test code = Sodium Lvl) 140 135-145 [facility] CenterNeurocrine BiosciencesCOMMUNITY [id number] 21:17:00 Test Item Value Reference Range Interpretation Comments Chloride Lvl (test code = Chloride Lvl) 109 95-109 [facility] CenterNeurocrine BiosciencesKING'[facility] [place] [id number] 21:17:00 Test Item Value Reference Range Interpretation Comments CO2 (test code = CO2) 29 24-32 [facility] CenterannCOMMUNITY [id number] 21:17:00 Test Item Value Reference Range Interpretation Comments Total Protein (test code = Total 7.5 6.4-8.4 Protein) [facility]2014-04-26 21:17:00 Test Item Value Reference Range Interpretation Comments Calcium Lvl (test code = Calcium Lvl) 9.2 8.5-10.5 [facility] CenterannDRUG [id number] 21:17:00 Test Item Value Reference Range Interpretation Comments U Opiate Scr (test Negative *NA*(12/22/13 code = U Opiate Scr) 4:17 PM) [facility] CenterannDRUG [id number] 21:17:00 Test Item Value Reference Range Interpretation Comments U Phencyc Scr (test Negative *NA*(12/22/13 code = U Phencyc Scr) 4:17 PM) [facility] CenterannDRUG [id number] 21:17:00 Test Item Value Reference Range Interpretation Comments UDS Note (test code = See Note 4*NA*(12/22/13 UDS Note) 4:17 PM) [facility] CenterannDRUG [id number] 21:17:00 Test Item Value Reference Range Interpretation Comments U Benzodia Scr (test Negative *NA*(12/22/13 code = U Benzodia Scr) 4:17 PM) [facility] CenterannDRUG [id number] 21:17:00 Test Item Value Reference Range Interpretation Comments U Keyla Scr (test code Negative *NA*(12/22/13 = U Keyla Scr) 4:17 PM) [facility] [id number] 21:17:00 Test Item Value Reference Range Interpretation Comments U Amph Scr (test code Negative *NA*(12/22/13 = U Amph Scr) 4:17 PM) [facility] CenterDR[facility] [id number] 21:17:00 Test Item Value Reference Range Interpretation Comments U Cannab Scr (test Negative *NA*(12/22/13 code = U Cannab Scr) 4:17 PM) [facility] CenterDR[facility] [id number] 21:17:00 Test Item Value Reference Range Interpretation Comments U Cocaine Scr (test Negative *NA*(12/22/13 code = U Cocaine Scr) 4:17 PM) [facility] HospitalJyahffeXPYNUQWHYC0671-64-41 21:17:00 Test Item Value Reference Range Interpretation Comments PTT (test code = PTT) 35.2 s 22.9-35.8 [facility] HospitalAuvsujnKJKYONYECU4734-23-96 21:17:00 Test Item Value Reference Range Interpretation Comments PT (test code = PT) 12.2 s 12.0-14.7 [facility] HospitalQuprraeJINMYSSYDS2664-36-26 21:17:00 Test Item Value Reference Range Interpretation Comments INR (test code = INR) 0.91 0.85-1.17 [facility] HospitalSrspjwhRTXCWMRHLF0108-59-79 21:17:00 Test Item Value Reference Range Interpretation Comments MPV (test code = MPV) 8.4 7.4-10.4 [facility] HospitalSfhbxovZVFBEFMWIH0746-10-24 21:17:00 Test Item Value Reference Range Interpretation Comments MCH (test code = MCH) 29.2 pg 27.0-31.0 [facility] HospitalWwyddnoGDRLMGUCDH8189-51-47 21:17:00 Test Item Value Reference Range Interpretation Comments MCHC (test code = MCHC) 33.4 32.0-36.0 [facility]RohpbxlGPVXVXNJKA1353-35-63 21:17:00 Test Item Value Reference Range Interpretation Comments RDW (test code = RDW) 14.5 11.5-14.5 [facility] HospitalPyjjwjzFTTQXUTWPM7313-58-09 21:17:00 Test Item Value Reference Range Interpretation Comments Platelet (test code = Platelet) 219 133-450 [facility] HospitalAykizoxWYFZXIWYOJ4507-57-30 21:17:00 Test Item Value Reference Range Interpretation Comments Hct (test code = Hct) 41.6 36.0-48.0 [facility] HospitalCwidtshVLJQSVAEFT8297-99-43 21:17:00 Test Item Value Reference Range Interpretation Comments MCV (test code = MCV) 87.5 81.0-99.0 [facility] HospitalCwhkdtvZSCETGQLLV7555-49-42 21:17:00 Test Item Value Reference Range Interpretation Comments RBC (test code = RBC) 4.76 4.20-5.40 [facility] HospitalCeyikagNAEVSHCJUO5098-07-99 21:17:00 Test Item Value Reference Range Interpretation Comments Hgb (test code = Hgb) 13.9 12.0-16.0 [facility] HospitalFjdusdmFYKEXUMGFP7034-09-30 21:17:00 Test Item Value Reference Range Interpretation Comments WBC (test code = WBC) 8.5 3.7-10.4 [facility] HospitalUcaivowVJQWAWYMDB4713-44-20 21:17:00 Test Item Value Reference Range Interpretation Comments Eosinophils # (test code 0.2 See_Comment [A utomated message] The = Eosinophils #) system whic h generated this result tra nsmitted reference range : <=0.5. The reference r melody was not used to int erpret this result as normal/abnormal . [facility] HospitalThlpcpkREXZOPBBUY7293-83-86 21:17:00 Test Item Value Reference Range Interpretation Comments Basophils # (test code 0.0 See_Comment [Aut omated message] The = Basophils #) system which generated this result tra nsmitted reference range : <=0.2. The reference r melody was not used to int erpret this result as normal/abnormal . [facility] HospitalCvavzxtFJZDNINBTT9607-13-24 21:17:00 Test Item Value Reference Range Interpretation Comments Segs (test code = Segs) 66.1 45.0-75.0 [facility] HospitalIxyqijkKHXOZOJCCF0990-52-77 21:17:00 Test Item Value Reference Range Interpretation Comments Monocytes (test code = Monocytes) 6.1 2.0-12.0 [facility] HospitalZcadgazLUPVRQVUYR2418-43-63 21:17:00 Test Item Value Reference Range Interpretation Comments Lymphocytes (test code = Lymphocytes) 25.0 20.0-40.0 [facility] HospitalJlufmxrARPCFKFBPV2288-67-14 21:17:00 Test Item Value Reference Range Interpretation Comments Eosinophils (test code = 2.4 See_Comment [A utomated message] The Eosinophils) system which ge nerated this result tra nsmitted reference range : <=4.0. The reference r melody was not used to int erpret this result as normal/abnormal . [facility] HospitalSacjhyjXPSAJQTNVF1189-85-47 21:17:00 Test Item Value Reference Range Interpretation Comments Basophils (test code = 0.4 See_Comment [Aut omated message] The Basophils) system which ge nerated this result tra nsmitted reference range : <=1.0. The reference r melody was not used to int erpret this result as normal/abnormal . [facility] HospitalWpeldhcFWVTAHRYLP0688-76-97 21:17:00 Test Item Value Reference Range Interpretation Comments Lymphocytes # (test code = Lymphocytes 2.1 1.0-5.5 #) [facility] HospitalQfjtaciVHSYHSMEQU4417-22-62 21:17:00 Test Item Value Reference Range Interpretation Comments Monocytes # (test code 0.5 See_Comment [Aut omated message] The = Monocytes #) system which generated this result tra nsmitted reference range : <=0.8. The reference r melody was not used to int erpret this result as normal/abnormal . [facility] HospitalCgkzdcbJZBWOKFLGI1408-06-30 21:17:00 Test Item Value Reference Range Interpretation Comments Segs-Bands # (test code = Segs-Bands #) 5.6 1.5-8.1 [facility] AND [id number] 21:17:00 Test Item Value Reference Range Interpretation Comments UA WBC (test code = UA WBC) 3-5 /HPF [facility] AND [id number] 21:17:00 Test Item Value Reference Range Interpretation Comments UA Sq Epi (test code = UA Sq Occasional /LPF Epi) [facility] AND [id number] 21:17:00 Test Item Value Reference Range Interpretation Comments UA Trichomonas (test code = UA Rare /HPF Trichomonas) [facility] AND [id number] 21:17:00 Test Item Value Reference Range Interpretation Comments UA Bacteria (test code = UA Few /HPF Bacteria) [facility] AND [id number] 21:17:00 Test Item Value Reference Range Interpretation Comments UA Blood (test code = Trace *ABN*(12/22/13 UA Blood) 4:17 PM) [facility] AND [id number] 21:17:00 Test Item Value Reference Range Interpretation Comments UA Bili (test code = Negative *NA*(12/22/13 UA Bili) 4:17 PM) [facility] AND [id number] 21:17:00 Test Item Value Reference Range Interpretation Comments UA Urobilinogen (test code = UA 0.2 0.1-1.0 Urobilinogen) [facility] AND [id number] 21:17:00 Test Item Value Reference Range Interpretation Comments UA Leuk Est (test code Small *ABN*(12/22/13 = UA Leuk Est) 4:17 PM) [facility] AND [id number] 21:17:00 Test Item Value Reference Range Interpretation Comments UA Ketones (test code Negative *NA*(12/22/13 = UA Ketones) 4:17 PM) [facility] AND [id number] 21:17:00 Test Item Value Reference Range Interpretation Comments UA Glucose (test code Negative (12/22/13 4:17 = UA Glucose) PM) [facility] AND [id number] 21:17:00 Test Item Value Reference Range Interpretation Comments UA Turbidity (test code = Clear (12/22/13 4:17 UA Turbidity) PM) [facility] AND [id number] 21:17:00 Test Item Value Reference Range Interpretation Comments UA Color (test code = Yellow *NA*(12/22/13 UA Color) 4:17 PM) [facility] AND [id number] 21:17:00 Test Item Value Reference Range Interpretation Comments UA pH (test code = UA pH) 6.0 1 5.0-8.0 [facility] AND [id number] 21:17:00 Test Item Value Reference Range Interpretation Comments UA Spec Grav (test code = UA Spec 1.015 1 Grav) [facility] AND [id number] 21:17:00 Test Item Value Reference Range Interpretation Comments UA Protein (test code Negative (12/22/13 4:17 = UA Protein) PM) [facility] AND [id number] 21:17:00 Test Item Value Reference Range Interpretation Comments UA Nitrite (test code Negative (12/22/13 4:17 = UA Nitrite) PM) [facility]2014-04-21 15:55:31 Test Item Value Reference Range Interpretation Comments Phosphorus (test code = Phosphorus) 2.7 2.5-4.5 [facility]2014-04-21 15:55:31 Test Item Value Reference Range Interpretation Comments Magnesium Lvl (test code = Magnesium 2.2 1.8-2.4 Lvl) [facility]QpwpxivWDAKJARVYZPR0196-32-95 15:55:31 Test Item Value Reference Range Interpretation Comments AGAP (test code = AGAP) 10.5 10.0-20.0 [facility] HospitalBesqbwyEVIEEPZXPBQP9409-56-33 15:55:31 Test Item Value Reference Range Interpretation Comments eGFR (test code = eGFR) 91 [facility] HospitalLgbihkvMWLHHQHCUQLD7967-72-05 15:55:31 Test Item Value Reference Range Interpretation Comments BUN (test code = BUN) 10 7-22 [facility] HospitalYezojpcZEYOYZNZFCOC1972-01-13 15:55:31 Test Item Value Reference Range Interpretation Comments Creatinine Lvl (test code = Creatinine 0.8 0.5-1.4 Lvl) [facility] HospitalIvcqosfKLQVKKFXEMKX0015-25-41 15:55:31 Test Item Value Reference Range Interpretation Comments Sodium Lvl (test code = Sodium Lvl) 142 135-145 [facility] HospitalUraskofDYEWQETREYFW4117-77-81 15:55:31 Test Item Value Reference Range Interpretation Comments Glucose Lvl (test code = Glucose Lvl) 87 70-99 [facility] HospitalWmtpmaoKQTUCYPVLWZK1961-11-05 15:55:31 Test Item Value Reference Range Interpretation Comments CO2 (test code = CO2) 30 24-32 [facility] HospitalQnfegclUKMIRLUIOPBD4435-20-02 15:55:31 Test Item Value Reference Range Interpretation Comments Potassium Lvl (test code = Potassium 4.5 3.5-5.1 Lvl) [facility] HospitalIlcuyxgLVUYDFTBZKKU6506-05-53 15:55:31 Test Item Value Reference Range Interpretation Comments Chloride Lvl (test code = Chloride Lvl) 106 95-109 [facility] HospitalLurdujtWKKKUCLQKEWJ0233-45-99 15:55:31 Test Item Value Reference Range Interpretation Comments Calcium Lvl (test code = Calcium Lvl) 8.6 8.5-10.5 [facility]LpazxqwWWWBKRMYNS9461-24-33 15:55:31 Test Item Value Reference Range Interpretation Comments INR (test code = INR) 0.97 0.85-1.17 [facility] HospitalCkzakxqKUPUVVDRTH8014-74-62 15:55:31 Test Item Value Reference Range Interpretation Comments PTT (test code = PTT) 32.4 s 22.9-35.8 [facility] HospitalJschjrdWDSMVDVHPI9294-24-14 15:55:31 Test Item Value Reference Range Interpretation Comments PT (test code = PT) 12.8 s 12.0-14.7 [facility] HospitalZppenifRJDBFZQIZT8406-14-48 15:55:31 Test Item Value Reference Range Interpretation Comments Hgb (test code = Hgb) 13.7 12.0-16.0 [facility] HospitalOmuhmswNLGENGGVKJ0701-36-97 15:55:31 Test Item Value Reference Range Interpretation Comments RBC (test code = RBC) 4.88 4.20-5.40 [facility] HospitalHcluexaFDTXISTWNK9847-44-27 15:55:31 Test Item Value Reference Range Interpretation Comments MCH (test code = MCH) 28.1 pg 27.0-31.0 [facility] HospitalXchewszRCLXRERHQU1449-60-49 15:55:31 Test Item Value Reference Range Interpretation Comments Hct (test code = Hct) 42.1 36.0-48.0 [facility] HospitalOfmsunnZPZKOEKAYY5244-58-58 15:55:31 Test Item Value Reference Range Interpretation Comments MCV (test code = MCV) 86.4 81.0-99.0 [facility] HospitalMatflvoEWTIJLPGSL1544-72-11 15:55:31 Test Item Value Reference Range Interpretation Comments RDW (test code = RDW) 14.3 11.5-14.5 [facility]QmrzfyfNGJZYBLNZO9434-58-29 15:55:31 Test Item Value Reference Range Interpretation Comments MCHC (test code = MCHC) 32.5 32.0-36.0 [facility] HospitalDvozztxXTOBBGIIUW9059-71-33 15:55:31 Test Item Value Reference Range Interpretation Comments MPV (test code = MPV) 8.4 7.4-10.4 [facility] HospitalCbdcszrEGTSQINCWZ4130-28-86 15:55:31 Test Item Value Reference Range Interpretation Comments Platelet (test code = Platelet) 197 133-450 [facility] HospitalIuctsdyPYOLTDPUFF2873-15-02 15:55:31 Test Item Value Reference Range Interpretation Comments WBC (test code = WBC) 7.2 3.7-10.4 [facility] HospitalObtpuiwLTSUAWGOGN1647-30-32 15:55:31 Test Item Value Reference Range Interpretation Comments Monocytes (test code = Monocytes) 10.7 2.0-12.0 [facility] HospitalAkvvqzrHZVKHCQDJT9044-60-08 15:55:31 Test Item Value Reference Range Interpretation Comments Lymphocytes (test code = Lymphocytes) 27.2 20.0-40.0 [facility] HospitalGazemdcLDBLNXZQTF1218-39-40 15:55:31 Test Item Value Reference Range Interpretation Comments Lymphocytes # (test code = Lymphocytes 1.9 1.0-5.5 #) [facility] HospitalUcurmyyQLAPITWWDL2307-97-07 15:55:31 Test Item Value Reference Range Interpretation Comments Eosinophils (test code = 3.2 See_Comment [A utomated message] The Eosinophils) system which ge nerated this result tra nsmitted reference range : <=4.0. The reference r melody was not used to int erpret this result as normal/abnormal . [facility] HospitalEmobedoVAQOLRHKBJ5117-09-20 15:55:31 Test Item Value Reference Range Interpretation Comments Basophils (test code = 0.6 See_Comment [Aut omated message] The Basophils) system which ge nerated this result tra nsmitted reference range : <=1.0. The reference r melody was not used to int erpret this result as normal/abnormal . [facility] HospitalNemwqohTRCCZEIJUO9845-13-23 15:55:31 Test Item Value Reference Range Interpretation Comments Segs-Bands # (test code = Segs-Bands #) 4.2 1.5-8.1 [facility] HospitalDcryqpsNPNXCVBOUX0061-67-61 15:55:31 Test Item Value Reference Range Interpretation Comments Eosinophils # (test code 0.2 See_Comment [A utomated message] The = Eosinophils #) system whic h generated this result tra nsmitted reference range : <=0.5. The reference r melody was not used to int erpret this result as normal/abnormal . [facility] HospitalSydwurzSMGNNYJTRM5745-25-72 15:55:31 Test Item Value Reference Range Interpretation Comments Monocytes # (test code 0.8 See_Comment [Aut omated message] The = Monocytes #) system which generated this result tra nsmitted reference range : <=0.8. The reference r melody was not used to int erpret this result as normal/abnormal . [facility]waatNWHATBFVRQ8980-91-84 15:55:31 Test Item Value Reference Range Interpretation Comments Segs (test code = Segs) 58.3 45.0-75.0 [facility]PAR[facility]YRO[facility] CMNCJBM0625-60-62 15:55:19 Test Item Value Reference Range Interpretation Comments Ca Norm WB (test code = Ca Norm WB) 1.11 1.05-1.25 [facility]PAR[facility]YRO[facility] [id number] 15:55:19 Test Item Value Reference Range Interpretation Comments Ca Ion WB (test code = Ca Ion WB) 1.17 1.05-1.25 [facility] [id number] 03:45:57 Test Item Value Reference Range Interpretation Comments U Benzodia Scr (test Negative *NA*(12/16/13 code = U Benzodia Scr) 10:45 PM) [facility] [id number] 03:45:57 Test Item Value Reference Range Interpretation Comments U Cannab Scr (test Positive *ABN*(12/16/13 code = U Cannab Scr) 10:45 PM) [facility] [id number] 03:45:57 Test Item Value Reference Range Interpretation Comments U Cocaine Scr (test Negative *NA*(12/16/13 code = U Cocaine Scr) 10:45 PM) [facility] [id number] 03:45:57 Test Item Value Reference Range Interpretation Comments U Phencyc Scr (test Negative *NA*(12/16/13 code = U Phencyc Scr) 10:45 PM) [facility] [id number] 03:45:57 Test Item Value Reference Range Interpretation Comments U Opiate Scr (test Negative *NA*(12/16/13 code = U Opiate Scr) 10:45 PM) [facility] [id number] 03:45:57 Test Item Value Reference Range Interpretation Comments UDS Note (test code = See Note 6(12/16/13 UDS Note) 10:45 PM) [facility] [id number] 03:45:57 Test Item Value Reference Range Interpretation Comments U Amph Scr (test code Negative *NA*(12/16/13 = U Amph Scr) 10:45 PM) [facility] [id number] 03:45:57 Test Item Value Reference Range Interpretation Comments U Keyla Scr (test code Negative *NA*(12/16/13 = U Keyla Scr) 10:45 PM) [facility] HermannCARDIAC [id number] 03:45:00 Test Item Value Reference Range Interpretation Comments Total CK (test code = Total CK) 56 12-191 [facility] [id number] 03:45:00 Test Item Value Reference Range Interpretation Comments Troponin-T (test code no gt See_Comment [Auto mated message] The = Troponin-T) system which g enerated this result transmit marcelle reference range : <=0.100. The reference r melody was not used to interpr et this result as aranza l/abnormal. [facility] HermannCARDIAC [id number] 03:45:00 Test Item Value Reference Range Interpretation Comments Troponin-I (test code no gt See_Comment [Auto mated message] The = Troponin-I) system which g enerated this result transmit marcelle reference range : <=0.40. The reference r melody was not used to interpr et this result as aranza l/abnormal. [facility]annC[facility] GYGTUBR2306-69-07 03:45:00 Test Item Value Reference Range Interpretation Comments BNP (test code = BNP) 13 [facility] CenterMhsnlwxLRQQHR0761-03-66 03:45:00 Test Item Value Reference Range Interpretation Comments VLDL (test code = VLDL) 18 [facility] CenterWvmwlyqLCNXGL7376-29-89 03:45:00 Test Item Value Reference Range Interpretation Comments LDL (Calculated) (test code = LDL 88 (Calculated)) [facility] CenterYekczngQXZYHK1349-30-69 03:45:00 Test Item Value Reference Range Interpretation Comments Trig (test code = Trig) 88 [facility] CiyxtgrPNMRUG7861-97-72 03:45:00 Test Item Value Reference Range Interpretation Comments CHD Risk (test code = CHD Risk) 3.08 3.90-5.80 [facility] AgxxepgQRPBLU2368-48-60 03:45:00 Test Item Value Reference Range Interpretation Comments Chol (test code = Chol) 157 [facility] CenterLpjzfiaHYGQAT0575-14-68 03:45:00 Test Item Value Reference Range Interpretation Comments HDL (test code = HDL) 51 [facility] [id number] 03:45:00 Test Item Value Reference Range Interpretation Comments Hgb A1C (test code = Hgb A1C) 5.3 [facility] HermannTHYROID [id number] 03:45:00 Test Item Value Reference Range Interpretation Comments TSH (test code = TSH) 0.870 0.360-3.740 [facility]annCARD[facility]AC [id number] 22:09:00 Test Item Value Reference Range Interpretation Comments Total CK (test code = Total CK) 42 12-191 [facility]annC[facility] [id number] 22:09:00 Test Item Value Reference Range Interpretation Comments Troponin-I (test code no gt See_Comment [Auto mated message] The = Troponin-I) system which g enerated this result transmit marcelle reference range : <=0.40. The reference r melody was not used to interpr et this result as aranza l/abnormal. [facility] CenterannCHEM [id number] 19:30:00 Test Item Value Reference Range Interpretation Comments Lactic Acid Lvl (test code = Lactic 1.3 0.5-2.2 Acid Lvl) [facility] CenterMleidgbZORYLZVTKQ4533-55-51 19:30:00 Test Item Value Reference Range Interpretation Comments PT (test code = PT) 11.8 s 12.0-14.7 [facility] CenterGalznjkKQMJHMOXED1082-40-91 19:30:00 Test Item Value Reference Range Interpretation Comments INR (test code = INR) 0.87 0.85-1.17 [facility] CenterKaiuzpbNVAXKWDRBX1161-22-54 19:30:00 Test Item Value Reference Range Interpretation Comments PTT (test code = PTT) 31.2 s 22.9-35.8 [facility] CenterJohygxlFZCYWFRADD7275-39-72 19:30:00 Test Item Value Reference Range Interpretation Comments RBC (test code = RBC) 4.69 4.20-5.40 [facility] CenterRvkrizgJBLOVRBKDC8431-65-50 19:30:00 Test Item Value Reference Range Interpretation Comments WBC (test code = WBC) 6.6 3.7-10.4 [facility] CenterJnydqudFGRXVBJTVE3422-30-42 19:30:00 Test Item Value Reference Range Interpretation Comments Hct (test code = Hct) 40.5 36.0-48.0 [facility]ChtrjbjQRHMJWGLAP7377-38-95 19:30:00 Test Item Value Reference Range Interpretation Comments MCV (test code = MCV) 86.4 81.0-99.0 [facility] HospitalQohfkoyPLBNZTSDJR5969-76-12 19:30:00 Test Item Value Reference Range Interpretation Comments Hgb (test code = Hgb) 13.6 12.0-16.0 [facility] HospitalDxejrlqZRUMHCQJRM6532-17-49 19:30:00 Test Item Value Reference Range Interpretation Comments MCH (test code = MCH) 29.0 pg 27.0-31.0 [facility] HospitalXrlmthuXCIQDRXBSQ5892-35-01 19:30:00 Test Item Value Reference Range Interpretation Comments MCHC (test code = MCHC) 33.6 32.0-36.0 [facility] HospitalQymfhksCKKBVAUUZV0838-13-83 19:30:00 Test Item Value Reference Range Interpretation Comments Platelet (test code = Platelet) 202 133-450 [facility] HospitalPibrkriAVVBOSEAYG0040-42-04 19:30:00 Test Item Value Reference Range Interpretation Comments RDW (test code = RDW) 13.4 11.5-14.5 [facility] HospitalSzdyeydMHLFGIJZID2006-56-88 19:30:00 Test Item Value Reference Range Interpretation Comments MPV (test code = MPV) 8.6 7.4-10.4 [facility] HospitalMntxgsoAEJBHDGKRB1158-59-83 19:30:00 Test Item Value Reference Range Interpretation Comments Monocytes # (test code 0.8 See_Comment [Aut omated message] The = Monocytes #) system which generated this result tra nsmitted reference range : <=0.8. The reference r melody was not used to int erpret this result as normal/abnormal . [facility] HospitalJvxuquxVRBXYVVREF1319-49-91 19:30:00 Test Item Value Reference Range Interpretation Comments Basophils # (test code 0.0 See_Comment [Aut omated message] The = Basophils #) system which generated this result tra nsmitted reference range : <=0.2. The reference r melody was not used to int erpret this result as normal/abnormal . [facility] HospitalTdsmxgyAHBIPYDFBW3276-95-57 19:30:00 Test Item Value Reference Range Interpretation Comments Monocytes (test code = Monocytes) 12.1 2.0-12.0 [facility] HospitalGtxwyrzHCAESXXQGN6954-23-23 19:30:00 Test Item Value Reference Range Interpretation Comments Eosinophils (test code = 3.8 See_Comment [A utomated message] The Eosinophils) system which ge nerated this result tra nsmitted reference range : <=4.0. The reference r melody was not used to int erpret this result as normal/abnormal . [facility] HospitalGecqbheATXSTZOMPT1180-31-02 19:30:00 Test Item Value Reference Range Interpretation Comments Basophils (test code = 0.6 See_Comment [Aut omated message] The Basophils) system which ge nerated this result tra nsmitted reference range : <=1.0. The reference r melody was not used to int erpret this result as normal/abnormal . [facility] HospitalLmfafrcYJAVRDZAFE8175-56-03 19:30:00 Test Item Value Reference Range Interpretation Comments Segs-Bands # (test code = Segs-Bands #) 3.9 1.5-8.1 [facility] HospitalSqqhvgyUNZOUYOTRK8354-28-49 19:30:00 Test Item Value Reference Range Interpretation Comments Eosinophils # (test code 0.3 See_Comment [A utomated message] The = Eosinophils #) system whic h generated this result tra nsmitted reference range : <=0.5. The reference r melody was not used to int erpret this result as normal/abnormal . [facility] HospitalLdpvhvoLBDWGZIVGG5447-43-73 19:30:00 Test Item Value Reference Range Interpretation Comments Lymphocytes # (test code = Lymphocytes 1.6 1.0-5.5 #) [facility] HospitalKamegcqOQFJGLRRKR1172-59-77 19:30:00 Test Item Value Reference Range Interpretation Comments Lymphocytes (test code = Lymphocytes) 25.0 20.0-40.0 [facility] HospitalSthswieCOUCNIYWXW0291-39-42 19:30:00 Test Item Value Reference Range Interpretation Comments Segs (test code = Segs) 58.5 45.0-75.0 [facility] CenterNeurocrine BiosciencesCOMMUNITY [id number] 17:43:24 Test Item Value Reference Range Interpretation Comments eGFR (test code = eGFR) 79 [facility] CenterVOICEPLATE.COM [id number] 17:43:24 Test Item Value Reference Range Interpretation Comments Creatinine Lvl (test code = Creatinine 0.9 0.5-1.4 Lvl) [facility] CenterVOICEPLATE.COM [id number] 17:43:24 Test Item Value Reference Range Interpretation Comments Sodium Lvl (test code = Sodium Lvl) 142 135-145 [facility]2014-04-20 17:43:24 Test Item Value Reference Range Interpretation Comments Potassium Lvl (test code = Potassium 4.5 3.5-5.1 Lvl) [facility]2014-04-20 17:43:24 Test Item Value Reference Range Interpretation Comments Chloride Lvl (test code = Chloride Lvl) 107 95-109 [facility]2014-04-20 17:43:24 Test Item Value Reference Range Interpretation Comments Glucose Lvl (test code = Glucose Lvl) 78 70-99 [facility]2014-04-20 17:43:24 Test Item Value Reference Range Interpretation Comments BUN (test code = BUN) 11 7- [facility]2014-04-20 17:43:24 Test Item Value Reference Range Interpretation Comments A/G Ratio (test code = A/G Ratio) 1.0 0.7-1.6 [facility]2014-04-20 17:43:24 Test Item Value Reference Range Interpretation Comments B/C Ratio (test code = B/C Ratio) 12 6- [facility]2014-04-20 17:43:24 Test Item Value Reference Range Interpretation Comments Globulin (test code = Globulin) 3.6 2.0-4.0 [facility]2014-04-20 17:43:24 Test Item Value Reference Range Interpretation Comments AGAP (test code = AGAP) 16.5 10.0-20.0 [facility]2014-04-20 17:43:24 Test Item Value Reference Range Interpretation Comments Total Protein (test code = Total 7.2 6.4-8.4 Protein) [facility]2014-04-20 17:43:24 Test Item Value Reference Range Interpretation Comments AST (test code = AST) 19 See_Comment [Auto mated message] The system which ge nerated this result transmit marcelle reference range : <=37. The reference range was not used to interpr et this result as aranza l/abnormal. [facility]2014-04-20 17:43:24 Test Item Value Reference Range Interpretation Comments CO2 (test code = CO2) 23 24-32 [facility]2014-04-20 17:43:24 Test Item Value Reference Range Interpretation Comments Calcium Lvl (test code = Calcium Lvl) 9.2 8.5-10.5 [facility] [employer] [id number] 17:43:24 Test Item Value Reference Range Interpretation Comments Bili Total (test code = Bili Total) 0.3 0.2-1.3 [facility] [employer] [id number] 17:43:24 Test Item Value Reference Range Interpretation Comments Albumin Lvl (test code = Albumin Lvl) 3.6 3.5-5.0 [facility] [employer] [id number] 17:43:24 Test Item Value Reference Range Interpretation Comments Alk Phos (test code = Alk Phos) 87 39-136 [facility] [employer] [id number] 17:43:24 Test Item Value Reference Range Interpretation Comments ALT (test code = ALT) 31 See_Comment [Auto mated message] The system which ge nerated this result transmit marcelle reference range : <=65. The reference range was not used to interpr et this result as aranza l/abnormal. [facility]2014-04-20 17:43:00 Test Item Value Reference Range Interpretation Comments Total CK (test code = Total CK) 56 12-191 [facility]2014-04-20 17:43:00 Test Item Value Reference Range Interpretation Comments Troponin-I (test code no gt See_Comment [Auto mated message] The = Troponin-I) system which g enerated this result transmit marcelle reference range : <=0.40. The reference r melody was not used to interpr et this result as aranza l/abnormal. [facility]2014-03-13 19:12:00 Test Item Value Reference Range Interpretation Comments Troponin-I (test code no gt See_Comment [Auto mated message] The = Troponin-I) system which g enerated this result transmit marcelle reference range : <=0.40. The reference r melody was not used to interpr et this result as aranza l/abnormal. [facility]2014-03-13 19:12:00 Test Item Value Reference Range Interpretation Comments Total CK (test code = Total CK) 49 12-191 [facility]2014-03-13 19:12:00 Test Item Value Reference Range Interpretation Comments Troponin-T (test code no gt See_Comment [Auto mated message] The = Troponin-T) system which g enerated this result transmit marcelle reference range : <=0.100. The reference r melody was not used to interpr et this result as aranza l/abnormal. [facility] CenterHgtuoklYPJYMNWPR5267-41-77 19:12:00 Test Item Value Reference Range Interpretation Comments Myoglobin (test code = Myoglobin) 36 25-72 [facility] [id number] 12:35:00 Test Item Value Reference Range Interpretation Comments Troponin-T (test code no gt See_Comment [Auto mated message] The = Troponin-T) system which g enerated this result transmit marcelle reference range : <=0.100. The reference r melody was not used to interpr et this result as aranza l/abnormal. [facility] GSQGTSM0128-37-89 12:35:00 Test Item Value Reference Range Interpretation Comments Total CK (test code = Total CK) 54 12-191 [facility] GPWDKSA8945-33-98 12:35:00 Test Item Value Reference Range Interpretation Comments Troponin-I (test code no gt See_Comment [Auto mated message] The = Troponin-I) system which g enerated this result transmit marcelle reference range : <=0.40. The reference r melody was not used to interpr et this result as aranza l/abnormal. [facility] VKDIDBZ4079-77-80 08:36:00 Test Item Value Reference Range Interpretation Comments Troponin-I (test code no gt See_Comment [Auto mated message] The = Troponin-I) system which g enerated this result transmit marcelle reference range : <=0.40. The reference r melody was not used to interpr et this result as aranza l/abnormal. [facility]XEVGCNZGXCD2784-[facility]-57 08:36:00 Test Item Value Reference Range Interpretation Comments AGAP (test code = AGAP) 11.4 10.0-20.0 [facility]EheyhcwYDWFCDBIWFFJ1038-89-43 08:36:00 Test Item Value Reference Range Interpretation Comments eGFR (test code = eGFR) 69 [facility] AustinXepyolmPMHTIGJDNOEQ7950-12-45 08:36:00 Test Item Value Reference Range Interpretation Comments Calcium Lvl (test code = Calcium Lvl) 9.2 8.5-10.5 [facility]FzlilsgEIDSSINYGKVW6483-25-82 08:36:00 Test Item Value Reference Range Interpretation Comments CO2 (test code = CO2) 27 24-32 [facility] HospitalYufoqojCMLFUZPLGYTL9270-17-96 08:36:00 Test Item Value Reference Range Interpretation Comments Chloride Lvl (test code = Chloride Lvl) 105 95-109 [facility] HospitalKonbgusFQPXXIEFGJXI7650-95-45 08:36:00 Test Item Value Reference Range Interpretation Comments Potassium Lvl (test code = Potassium 3.4 3.5-5.1 Lvl) [facility] HospitalUernmgcWDUZGZPJZQVG5528-73-37 08:36:00 Test Item Value Reference Range Interpretation Comments Sodium Lvl (test code = Sodium Lvl) 140 135-145 [facility] HospitalBdldkbxTVDFJAAFYHOY2346-22-02 08:36:00 Test Item Value Reference Range Interpretation Comments BUN (test code = BUN) 11 7-22 [facility] HospitalTibgsxgMPQIWYRULNZZ4354-34-38 08:36:00 Test Item Value Reference Range Interpretation Comments Glucose Lvl (test code = Glucose Lvl) 84 70-99 [facility] HospitalEobdbmcNNHLOOJWNCUN7274-52-21 08:36:00 Test Item Value Reference Range Interpretation Comments Creatinine Lvl (test code = Creatinine 1.0 0.5-1.4 Lvl) [facility] HospitalOstjlmqGJBNCSAQSE0610-54-75 08:36:00 Test Item Value Reference Range Interpretation Comments Basophils # (test code 0.1 See_Comment [Aut omated message] The = Basophils #) system which generated this result tra nsmitted reference range : <=0.2. The reference r melody was not used to int erpret this result as normal/abnormal . [facility] HospitalKogyerzYCNDQCSUGY0511-47-57 08:36:00 Test Item Value Reference Range Interpretation Comments Eosinophils # (test code 0.2 See_Comment [A utomated message] The = Eosinophils #) system whic h generated this result tra nsmitted reference range : <=0.5. The reference r melody was not used to int erpret this result as normal/abnormal . [facility] HospitalUvftxxnYQQGXCYGHC7844-07-65 08:36:00 Test Item Value Reference Range Interpretation Comments Monocytes # (test code 0.8 See_Comment [Aut omated message] The = Monocytes #) system which generated this result tra nsmitted reference range : <=0.8. The reference r melody was not used to int erpret this result as normal/abnormal . [facility] HospitalYtdezjjZRFVVJUVKU3395-22-63 08:36:00 Test Item Value Reference Range Interpretation Comments Segs (test code = Segs) 72.5 45.0-75.0 [facility] HospitalXhqptixAUZRWKABXR2995-40-95 08:36:00 Test Item Value Reference Range Interpretation Comments Lymphocytes (test code = Lymphocytes) 17.0 20.0-40.0 [facility] HospitalTmquczvITAHCXVOXW6875-80-18 08:36:00 Test Item Value Reference Range Interpretation Comments Eosinophils (test code = 2.1 See_Comment [A utomated message] The Eosinophils) system which ge nerated this result tra nsmitted reference range : <=4.0. The reference r melody was not used to int erpret this result as normal/abnormal . [facility] HospitalIehjdjsQAXNVEZDDV4224-96-29 08:36:00 Test Item Value Reference Range Interpretation Comments Monocytes (test code = Monocytes) 7.8 2.0-12.0 [facility] HospitalSjqdnpiVFPWDEEOAC8130-43-65 08:36:00 Test Item Value Reference Range Interpretation Comments Segs-Bands # (test code = Segs-Bands #) 7.6 1.5-8.1 [facility] HospitalFifgxqaZCTXFHOIYE7117-97-85 08:36:00 Test Item Value Reference Range Interpretation Comments Basophils (test code = 0.6 See_Comment [Aut omated message] The Basophils) system which ge nerated this result tra nsmitted reference range : <=1.0. The reference r melody was not used to int erpret this result as normal/abnormal . [facility] HospitalRxcjmrhGKGEKWCNBC0934-49-82 08:36:00 Test Item Value Reference Range Interpretation Comments Lymphocytes # (test code = Lymphocytes 1.8 1.0-5.5 #) [facility] HospitalIqgkkqxGDGVKGJOQW7346-30-96 08:36:00 Test Item Value Reference Range Interpretation Comments MPV (test code = MPV) 8.7 7.4-10.4 [facility] HospitalFvaowaqVJJQBHQJMC6115-00-79 08:36:00 Test Item Value Reference Range Interpretation Comments RDW (test code = RDW) 14.0 11.5-14.5 [facility] HospitalAspadchYXJAXEEVTX0229-84-81 08:36:00 Test Item Value Reference Range Interpretation Comments Platelet (test code = Platelet) 191 133-450 [facility] HospitalQuaimaqFGSGRNSLIA3760-42-95 08:36:00 Test Item Value Reference Range Interpretation Comments MCHC (test code = MCHC) 33.9 32.0-36.0 [id number] 08:36:00 Test Item Value Reference Range Interpretation Comments RBC X 10x6 (test code = RBC X 10x6) 4.65 4.20-5.40 [id number] 08:36:00 Test Item Value Reference Range Interpretation Comments WBC X 10x3 (test code = WBC X 10x3) 10.6 3.7-10.4 [id number] 08:36:00 Test Item Value Reference Range Interpretation Comments MCH (test code = MCH) 29.3 pg 27.0-31.0 [id number] 08:36:00 Test Item Value Reference Range Interpretation Comments MCV (test code = MCV) 86.6 81.0-99.0 [facility] H[id number] 08:36:00 Test Item Value Reference Range Interpretation Comments Hgb (test code = Hgb) 13.6 12.0-16.0 [id number] 08:36:00 Test Item Value Reference Range Interpretation Comments Hct (test code = Hct) 40.2 36.0-48.0 [facility]
--- NOTE | 2021-10-30 11:29 | ER ---
Nurse's Notes [facility] Name: Winsome Yepez Age: 71 yrs Sex: Female : 1950 Arrival Date: 10/30/2021 Time: 09:34 Bed 11 Private MD: Diagnosis: Presentation: 10/30 09:34 Chief complaint: EMS states: CHRONIC SOB x3 DAYS. Coronavirus screen: At this time, the bp client does not indicate any symptoms associated with coronavirus-19. Ebola Screen: No symptoms or risks identified at this time. Initial Sepsis Screen: Does the patient meet any 2 criteria? No. Patient's initial sepsis screen is negative. Does the patient have a suspected source of infection? No. Patient's initial sepsis screen is negative. Risk Assessment: Do you want to hurt yourself or someone else? Patient reports no desire to harm self or others. Onset of symptoms is unknown. 09:34 Method Of Arrival: EMS: [facility] bp 09:34 Acuity: CYNTHIA 3 bp Triage Assessment: 09:36 General: Appears distressed, comfortable, Behavior is cooperative, appropriate for age, bp anxious. Pain: Denies pain. EENT: No deficits noted. Neuro: No deficits noted. Cardiovascular: Rhythm is sinus rhythm. Respiratory: Reports shortness of breath Onset: The symptoms/episode began/occurred 3 DAYS AGO, the patient has mild shortness of breath. GI: No signs and/or symptoms were reported involving the gastrointestinal system. : No signs and/or symptoms were reported regarding the genitourinary system. Derm: No deficits noted. Musculoskeletal: No deficits noted. Historical: - Allergies: 09:36 PENICILLINS; bp - Home Meds: 09:36 prednisone 10 mg Oral tab 1 tab once daily [Active]; bp - PMHx: 09:36 Asthma; chronic back pain; Hypertensive disorder; bp - Immunization history:: Adult Immunizations unknown. - Social history:: Smoking status: unknown. Screenin:38 Abuse screen: Denies threats or abuse. Denies injuries from another. Nutritional bp screening: No deficits noted. Tuberculosis screening: No symptoms or risk factors identified. Fall Risk None identified. Assessment: 09:38 General: SEE TRIAGE NOTE. bp 09:45 Pain: Complains of pain in lumbar area, left low back and right low back Pain currently jh6 is 5 out of 10 on a pain scale. Quality of pain is described as shooting, gnawing, Pain began years ago. Is continuous, Alleviated by medications, rest, repositioning, Aggravated by increased activity. Cardiovascular: No deficits noted. Respiratory: Reports shortness of breath at rest since this am Airway is patent Respiratory effort is even, unlabored, Breath sounds are clear. 10:05 General: pt upset that two blankets were not unfolded when placed on her states that jh6 she is going to go home because we haven't given her any pain meds and she can go home and hurt. pt also upset that i asked her to get into a gown. attempted to explain to pt that she needed to get her into a gown so that if we admit her into the hospital she would need to be in one also that with long sleeves that we would need to start an iv. Vital Signs: 09:34 Pulse 85; Resp 20; Temp 98; Pulse Ox 100% on R/A; bp 09:38 BP 115 / 62; Pulse 60; Resp 16; Temp 98.2; Pulse Ox 100% on 4 lpm NC; Weight 49.9 kg; em1 Height 5 ft. 0 in. (152.40 cm); Pain 10; 09:38 Body Mass Index 21.48 (49.90 kg, 152.40 cm) em1 ED Course: 09:34 Patient arrived in ED. bp 09:36 Triage completed. bp 09:36 Arm band placed on. bp 09:38 Patient has correct armband on for positive identification. Bed in low position. Call bp light in reach. Side rails up X2. 09:39 Fox Jones, RN is Primary Nurse. bp 09:39 Koby Gilmore PA is PHCP. paddy 09:39 Mark Jones MD is Attending Physician. kevin Administered Medications: No medications were administered Outcome: 10:09 AMA Left before signing form. jh6 10:09 Condition: stable 11:29 Patient left the ED. iw Signatures: Koby Gilmore PA PA jmm Williams, Irene, RN RN iw Martinez, Eric em1 Fox Jones RN Juana Nieves RN RN [facility]
[2021-10-30 11:36] VITALS: O2SAT 100
[2021-10-30 11:37] VITALS: BP 115/62; TEMP 98.2
--- NOTE | 2021-10-31 11:29 | EDPHYS ---
Physician Documentation [facility] Name: Winsome Yepez Age: 71 yrs Sex: Female : 1950 Arrival Date: 10/30/2021 Time: 09:34 Bed 11 Private MD: ED Physician Mark Jones HPI: 10/30 09:45 This 71 yrs old Black Female presents to ER via EMS with complaints of Shortness Of jmm Breath. Historical: - Allergies: 09:36 PENICILLINS; bp - Home Meds: 09:36 prednisone 10 mg Oral tab 1 tab once daily [Active]; bp - PMHx: 09:36 Asthma; chronic back pain; Hypertensive disorder; bp - Immunization history:: Adult Immunizations unknown. - Social history:: Smoking status: unknown. ROS: 09:45 Constitutional: Negative for jmm 09:45 Respiratory: Positive for shortness of breath. Exam: 09:45 Constitutional: This is a well developed, well nourished patient who is awake, alert, jmm and in no acute distress. Head/Face: atraumatic. Eyes: EOMI, no conjunctival erythema appreciated ENT: Moist Mucus Membranes Neck: Trachea midline, Supple Chest/axilla: Normal chest wall appearance and motion. Cardiovascular: Regular rate and rhythm. No edema appreciated Respiratory: Normal respirations, no respiratory distress appreciated Abdomen/GI: Non distended, soft Back: Normal ROM Skin: General appearance color normal MS/ Extremity: Moves all extremities, no obvious deformities appreciated, no edema noted to the lower extremities Neuro: Awake and alert Psych: Behavior is normal, Mood is normal, Patient is cooperative and pleasant Vital Signs: 09:34 Pulse 85; Resp 20; Temp 98; Pulse Ox 100% on R/A; bp 09:38 BP 115 / 62; Pulse 60; Resp 16; Temp 98.2; Pulse Ox 100% on 4 lpm NC; Weight 49.9 kg; em1 Height 5 ft. 0 in. (152.40 cm); Pain 10; 09:38 Body Mass Index 21.48 (49.90 kg, 152.40 cm) em1 MDM: 09:45 Patient medically screened. quin 17:39 Data reviewed: vital signs, nurses notes. ED course: Patient eloped prior to full jmm evaluation. . 10/30 10:04 Order name: EKG; Complete Time: 10:05 [facility] 10/30 10:04 Order name: Cardiac monitoring [facility] 10/30 10:04 Order name: EKG - Nurse/Tech [facility] 10/30 10:04 Order name: IV Saline Lock [facility] 10/30 10:04 Order name: Labs collected and sent [facility] 10/30 10:04 Order name: O2 Per Protocol [facility] 10/30 10:04 Order name: O2 Sat Monitoring [facility] Administered Medications: No medications were administered Disposition Summary: 10/30/21 11:29 Eloped Disposition: after being seen by provider iw Reason: feeling better iw Signatures: Dispatcher [employer] EDMS Mark Jones MD MD cha Mickail, Joel, PA PA Sandi Gerard, AZAM RN iw Fox Jones RN RN bp Corrections: (The following items were deleted from the chart) 11:24 10:05 Chest Single View+RAD.RAD.BRZ ordered. [facility]
== END 2021-10-30 11:29 | disposition left against medical advice (07) ==
LOC: ER 09:31
DX: R06.02 Shortness of breath (principal); J45.909 Unspecified asthma, uncomplicated; I10 Essential (primary) hypertension; Z88.0 Allergy status to penicillin
CPT/HCPCS: 99284